=== PATIENT | male | born 1955 | race Caucasian/White ===

== ENCOUNTER 2018-07-23 12:11 | Outpatient (CLI) | payer MEDICAID, SELFPAY ==
[2018-07-23 14:01] LABS: ALT 102 U/L (12-78); AST 49 U/L (15-37); Albumin 3.2 g/dL (3.4-5.0); Alkaline Phosphatase 64 U/L (46-116); Anion Gap 11.3 mmol/L (3-11); BUN 11 mg/dL (7-18); Bilirubin, Total 0.7 mg/dL (0.2-1.0); CO2 26.7 mmol/L (21.0-32.0); Chloride 99 mmol/L (98-107); Glucose 135 mg/dL (70-100); Potassium 3.1 mmol/L (3.5-5.1); Sodium 137 mmol/L (136-145); Total Protein 7.3 g/dL (6.4-8.2)
== END 2018-07-23 12:31 ==
PROVIDERS: PCP Family Medicine; Visit Provider Family Medicine
DX: I10 Essential (primary) hypertension (principal); B19.20 Unspecified viral hepatitis C without hepatic coma; H53.8 Other visual disturbances
CPT/HCPCS: 36415; 80053

== ENCOUNTER 2019-03-27 19:42 | Outpatient (REF) | payer MEDICAID, SELFPAY ==
[2019-04-02 12:14] LABS: Codeine Negative ng/mL (Cutoff: 25); Dihydrocodeine 637 ng/mL (Cutoff: 25); Hydrocodone 2432 ng/mL (Cutoff: 25); Hydromorphone 61 ng/mL (Cutoff: 25); Morphine Negative ng/mL (Cutoff: 25); Naloxone Negative ng/mL (Cutoff: 25); Norhydrocodone 782 ng/mL (Cutoff: 25); Noroxycodone Negative ng/mL (Cutoff: 25); Noroxymorphone Negative ng/mL (Cutoff: 25); Opiates Interpretation Positive.
== END 2019-03-27 20:02 ==
LOC: NCHCN 19:42
PROVIDERS: PCP Family Medicine; Visit Provider Family Medicine
DX: G89.29 Other chronic pain (principal); F11.20 Opioid dependence, uncomplicated; Z51.81 Encounter for therapeutic drug level monitoring
CPT/HCPCS: 80361

== ENCOUNTER 2019-07-04 13:41 | Emergency (ER) | payer MEDICAID, SELFPAY ==
[2019-07-04] VITALS (24 sets, daily range): BP systolic 95–120; BP diastolic 64–80; PULSE 63–109; RESP 18; TEMP 36.1; O2SAT 92–98
--- NOTE | 2019-07-04 14:00 | DI.CT_ITS ---
EXAM: CT ABDOMEN AND PELVIS W CLINICAL HISTORY: RLQ PAIN TECHNIQUE: Imaging Protocol: Axial computed tomography images with coronal and sagittal reformatted images were created and reviewed CONTRAST MATERIAL: Intravenous: Omnipaque 350 Contrast volume:100 mL Oral: No COMPARISON: No exams were available for comparison FINDINGS: ABDOMEN: Lung Bases: Minimal dependent atelectatic changes. Liver: Normal density. No measurable mass. Portal, Superior Mesenteric, and Splenic Veins: Unremarkable. Gallbladder and Biliary Tract: Cholelithiasis. No biliary ductal dilatation. Pancreas: Normal density, no abnormal calcifications or inflammatory process. Spleen: Normal. Adrenals: No masses seen. Kidneys: Normal size, contour and axis. No radiodense stones or obstructive uropathy. No masses seen. Abdominal Aorta: There is ectasia of the infrarenal abdominal aorta up to 2.8 cm. Atherosclerosis is present. Bowel: In the proximal to mid sigmoid colon, there is a loop of bowel which shows wall thickening. T here is increased attenuation in the surrounding fat. There are diverticula present within the sigmo id colon. The findings may represent acute diverticulitis or other inflammatory/infectious colitis. Appendix is unremarkable. Peritoneal Cavity: No ascites, collection or mesenteric inflammatory response. Lymph Nodes: Within normal limits. Bones: Degenerative changes are present. Soft Tissues: Unremarkable. PELVIS: Bladder: There is apparent bladder wall thickening. The bladder is incompletely distended. Reproductive Organs: Unremarkable as visualized. Lymph Nodes: Within normal limits. Bones: Degenerative changes are present. IMPRESSION: 1. Wall thickening in the proximal to mid sigmoid colon. This may represent acute diverticulitis alem sheldon inflammatory/infectious colitis. No abscess or free air. 2. Apparent urinary bladder wall thickening. This may be due to incomplete distention versus cystiti s. Please correlate clinically. RADIATION DOSE DELIVERED: Total DLP DATA REPOSITORY: All CT scans at this facility are submitted to the National Radiology Data Registry (NRDR) Dose Index Registry (DIR) with the [employer] ([employer]). RADIATION OPTIMIZATION: All CT scans at this facility use at least one of these dose optimization te chniques: automated exposure control; mA and/or kV adjustment per patient size (includes targeted exa ms where dose is matched to clinical indication); or iterative reconstruction.
--- NOTE | 2019-07-04 14:04 | ED.GENADUL_ITS ---
Discharge Plan Disposition Patient Disposition: HOME Condition: Stable Discharge Details Chief Complaint: Abd Prob Clinical Impression: Acute UTI, Diverticulitis Primary Care Provider: Sherri Guzman V ED Provider: Domenic Mishra Home Meds and New Rx's Prescriptions: New ciprofloxacin HCl [Cipro] 500 mg tablet 500 mg PO BID 14 Days Qty: 28 RF: 0 metronidazole [Flagyl] 500 mg tablet 500 mg PO TID 14 Days Qty: 42 RF: 0 No Action nadolol [Corgard] 40 MG tablet 120 mg PO DAILY Qty: 30 RF: 0 topiramate [Topamax] 25 MG capsule, sprinkle 25 mg PO BID RF: 0 beclomethasone dipropionate [Qvar] 8.7 GM aerosol 8.7 gm Inhalation BID RF: 0 ipratropium-albuterol [Combivent] 1 PUFF aerosol 2 puff Inhalation PRN PRNRF: 0 trazodone 100 MG tablet 150 mg PO HS Qty: 30 RF: 0 nicotine 21 MG/24 HR patch 24 hour 21 mg Transdermal DAILY Qty: 30 RF: 0 bupropion HCl [Wellbutrin SR] 150 MG tablet extended release 12 hr 150 mg PO BID Qty: 30 RF: 0 hydrocodone-acetaminophen 1 EACH tablet 1 tab-cap PO TID PRN PRNQty: 30 RF: 0 citalopram 20 MG tablet 20 mg PO QAM Qty: 30 RF: 0 gabapentin [Neurontin] 300 MG capsule 900 mg PO TID Qty: 90 RF: 0 tramadol 100 MG tablet extended release 24 hr 100 mg PO BID PRN PRNQty: 30 RF: 0 zolpidem [Ambien] 10 MG tablet 10 mg PO HS PRN PRNRF: 0 cyclobenzaprine 10 MG tablet 20 mg PO TID PRNRF: 0 sucralfate 1 GM tablet 1 gm PO AC & HS Qty: 120 RF: 0 thiamine mononitrate (vit B1) [Vitamin B-1 (mononitrate)] 100 MG tablet 100 mg PO DAILY Qty: 100 RF: 0 Discharge Instructions Instructions: Diverticulitis (ED), Urinary Tract Infection in Men (ED) Additional Instructions: Cipro and Flagyl as directed. Clear liquid diet, advance as tolerated. Please watch for new or worsening symptoms and return to the ER for any concerns. I strongly recommend reaching out your primary care provider on Sunday for prompt outpatient reevaluation. Discharge Data Discharge Date/Time-TO BE ENTERED AT DEPARTURE: 07/04/19 18:13 Medical Decision Making <EDMAR Davis - Last Filed: 07/05/19 11:26> Patient is a 64-year-old gentleman presenting today with chief complaint of right lower quadrant pain. He reports the pain began insidiously 2 days ago and has progressively been increasing. States that today he has been having difficulty with appetite has not had any p.o. intake since last night. He denies any fevers or chills. Denies any nausea vomiting. No change in bowel habits. No previous abdominal surgeries. Has not had pain like this historically. Denies any dysuria, increased frequency urgency. Denies any hematuria. No melena or hematochezia. Past medical history significant for alcohol withdrawal, esophageal varices, gastritis, hepatitis C, asthma, hypothyroidism, migraines, chronic pain for which he is on chronic opiates. On exam, patient is resting comfortably. Normal pulmonary and cardiac exam. Abdomen is quite tender in the right lower quadrant, maximal over McBurney's point with guarding of this area. He does have rebound tenderness. Negative psoas sign but he does have pain elicited with heel strike. Patient is afebrile and nontoxic-appearing. He does appear slightly dry, we will hydrate the patient obtain CT of his abdomen as well as baseline labs. I am primarily concerned for appendicitis. Labs reviewed, patient has a mildly elevated white blood cell count of 11.26. BUN is elevated at 20, creatinine is 1.5. This is unusual for the patient quite elevated from his baseline. We will hydrate the patient. AST is elevated at 55 which is baseline for the patient. No other acute abnormalities on labs. CT pending. At the end of my shift, CT is pending. Care transition to Lowell Mishra PA-C with CT pending. <EDMAR Bobo - Last Filed: 07/04/19 18:49> I assumed care at this 64-year-old gentleman at shift change from EDMAR Ventura. Patient with right lower quadrant pain for several days, denies fever, nausea, vomiting, back pain, dysuria, hematuria, diarrhea or constipation. Some laboratory values and CT pending. Patient appears well, nontoxic. Moist mucous membranes, lungs clear to auscultation, heart regular rate and rhythm. Abdomen does reveal discomfort in the right lower quadrant with minimal guarding but no rebound or rigidity. Bowel sounds are equal throughout. Back unremarkable. White count of 11.26. Urinalysis consistent with UTI. CT imaging of the abdomen and pelvis with contrast read by radiology as a localized wall thickening approximately 7-10 cm in length in the proximal sigmoid colon may represent acute diverticulitis or colitis. No perforation or abscess. Normal appendix. Apparent bladder wall thickening may be secondary to incomplete filling versus cystitis. Discussed laboratory values and imaging with patient. We discussed options. He would prefer to be discharged home. Will treat with Cipro and Flagyl which would cover both diverticulitis-colitis and a urinary tract infection. Culture of the urine is pending. Patient was encouraged to return to the ER for new or worsening symptoms. Otherwise follow-up with his primary care provider on Sunday. Medical Records Medical records reviewed: Yes I reviewed the patient's medical records. Lab Data Lab results reviewed: Yes I reviewed the patient's lab results. Lab results narrative: 07/04/19 17:15 Urine - Reflex from Ua Urine Culture - Pending Laboratory Tests Range/Units 07/04/19 07/04/19 07/04/19 14:20 14:50 17:15 WBC (4.4-10.8) k/cumm 11.26 H RBC (4.50-6.00) m/cumm 5.34 Hgb (13.5-17.5) g/dL 17.3 Hct (40.0-50.0) % 51.4 H MCV (80-95) fL 96.3 H MCH (27.0-33.0) pg 32.4 MCHC (32.0-36.0) g/dL 33.7 RDW (11.8-14.1) % 12.5 Plt Count (130-400) x1000/uL 240 MPV (8.0-11.0) fL 10.3 Immature Gran % % 0.6 Neutrophils % 67.7 Lymphocytes % 19.9 Monocytes % 7.8 Eosinophils % 3.6 Basophils % 0.4 Absolute Neutrophils (1.2-6.7) k/cumm 7.62 H Absolute Lymphocytes (1.2-3.4) k/cumm 2.24 Absolute Monocytes (0.11-0.7) k/cumm 0.88 H Absolute Eosinophils (0.0-0.7) k/cumm 0.41 Absolute Basophils (0.0-0.2) k/cumm 0.05 Sodium (136-145) mmol/L 137 Potassium (3.5-5.1) mmol/L 3.8 Chloride (98-107) mmol/L 102 Carbon Dioxide (21.0-32.0) mmol/L 25.7 Anion Gap (3-11) mmol/L 9.3 BUN (7-18) mg/dL 20 H Creatinine (0.70-1.30) mg/dL 1.51 H Estimated GFR/1.73 m2 (mL/min/1.73m2) 46.76 Glucose (74-106) mg/dL 97 Calcium (8.5-10.1) mg/dL 9.3 Magnesium (1.8-2.4) mg/dL 1.9 Total Bilirubin (0.2-1.0) mg/dL 0.8 AST (15-37) U/L 55 H ALT (16-63) U/L 58 Alkaline Phosphatase (46-116) U/L 65 Total Protein (6.4-8.2) g/dL 8.0 Albumin (3.4-5.0) g/dL 3.4 Urine Color (Yellow) Yellow Urine Clarity (Clear) Clear Urine pH (5-8) 6.0 Ur Specific [place] (1.005-1.025) 1.020 Urine Protein (Negative) mg/dL Negative Urine Ketones (Negative) mg/dL Negative Urine Blood (Negative) Negative Urine Nitrite (Negative) Negative Urine Bilirubin (Negative) Negative Urine Urobilinogen (Up TO 0.2) EU/dL 1.0 H Ur Leukocyte Esterase (Negative) Trace H Urine RBC (0-2) HPF 5-10 H Urine WBC (0-5) HPF >50 H Ur Epithelial Cells (Negative) HPF Negative Urine Crystals (Negative) HPF Few amorphous Urine Bacteria (Negative) HPF Few Urine Casts (Negative) LPF 10-20 hyaline Urine Mucus (Negative) Negative Ur Culture Indicated? Yes Urine Glucose (Negative) mg/dL Negative HPI <EDMAR Davis - Last Filed: 07/05/19 11:26> General Mode of arrival: ambulatory . Date/Time Provider Initiated Documentation: 07/04/19 13:46 . Limitations to Documentation: no limitations . Information obtained by: patient and RN notes reviewed . History of Present Illness 64 year old M presents to the emergency department with the chief complaint of RLQ pain, described as moderate, with intensity rated at 5. Quality is described as aching, and is localized to the abdomen. Patient reports no radiation. Patient started experiencing this day(s) (2) and it has been constant. No relieving factors improve symptom(s), Movement worsens symptoms . Patient notes loss of appetite; denies chest pain, cough, fever/chills, nausea/vomiting, rash, shortness of breath and weakness. Patient did receive the following treatments prior to arrival, none Related Data Home Medications Medication Instructions Recorded Confirmed beclomethasone dipropionate [Qvar] 8.7 gm INHALATION BID 11/10/12 08/11/16 ipratropium-albuterol [Combivent] 2 puff INHALATION PRN PRN 11/10/12 08/11/16 bupropion HCl [Wellbutrin SR] 150 mg PO BID #30 tablet.er 11/23/14 08/11/16 citalopram 20 mg PO QAM #30 tab 11/23/14 08/11/16 gabapentin [Neurontin] 900 mg PO TID #90 capsule 11/23/14 08/11/16 hydrocodone-acetaminophen 1 tab-cap PO TID PRN PRN #30 11/23/14 08/11/16 tab-cap nicotine 21 mg TRANSDERMAL DAILY #30 patch 11/23/14 08/11/16 tramadol 100 mg PO BID PRN PRN #30 tabcr 11/23/14 08/11/16 trazodone 150 mg PO HS #30 tab 11/23/14 08/11/16 zolpidem [Ambien] 10 mg PO HS PRN PRN 06/24/15 08/11/16 cyclobenzaprine 20 mg PO TID PRN 11/06/15 08/11/16 sucralfate 1 gm PO AC & HS #120 tab 11/10/15 08/11/16 thiamine mononitrate (vit B1) 100 mg PO DAILY #100 tab 11/10/15 08/11/16 [Vitamin B-1 (mononitrate)] nadolol [Corgard] 120 mg PO DAILY #30 tab 11/25/15 topiramate [Topamax] 25 mg PO BID cap.[email or web address] 02/21/16 08/11/16 ciprofloxacin HCl [Cipro] 500 mg PO BID 14 Days #28 tab 07/04/19 metronidazole [Flagyl] 500 mg PO TID 14 Days #42 tab 07/04/19 Previous Rx's Medication Instructions Recorded bupropion HCl [Wellbutrin SR] 150 mg PO BID #30 tablet.er 11/23/14 citalopram 20 mg PO QAM #30 tab 11/23/14 gabapentin [Neurontin] 900 mg PO TID #90 capsule 11/23/14 hydrocodone-acetaminophen 1 tab-cap PO TID PRN PRN #30 11/23/14 tab-cap nicotine 21 mg TRANSDERMAL DAILY #30 patch 11/23/14 tramadol 100 mg PO BID PRN PRN #30 tabcr 11/23/14 trazodone 150 mg PO HS #30 tab 11/23/14 sucralfate 1 gm PO AC & HS #120 tab 11/10/15 thiamine mononitrate (vit B1) 100 mg PO DAILY #100 tab 11/10/15 [Vitamin B-1 (mononitrate)] ciprofloxacin HCl [Cipro] 500 mg PO BID 14 Days #28 tab 07/04/19 metronidazole [Flagyl] 500 mg PO TID 14 Days #42 tab 07/04/19 Allergies Allergy/AdvReac Type Severity Reaction Status Date / Time clonidine AdvReac Mild Unverified 07/04/19 13:56 lisinopril AdvReac Mild Unverified 07/04/19 13:56 losartan AdvReac Mild Unverified 07/04/19 13:56 General Stated Complaint: Abd Prob DAYSI: 3 Review of Systems <EDMAR Davis - Last Filed: 07/05/19 11:26> Constitutional Constitutional: Reports as per HPI, Denies chills, Denies fatigue, Denies fever(s) and Denies headache(s) ENT Ears, Nose, Mouth, and Throat: Denies headache(s) Cardiovascular Cardiovascular: Reports as per HPI, Denies chest pain and Denies dyspnea Respiratory Respiratory: Reports as per HPI, Denies cough and Denies dyspnea Gastrointestinal Gastrointestinal: Reports as per HPI, Reports abdominal pain, Denies change in bowel habits, Denies constipation, Denies nausea and Denies vomiting Genitourinary Genitourinary: Denies system reviewed and no additional complaints, except as documented (patient denies any change in urinary habits) Musculoskeletal Musculoskeletal: Reports as per HPI and Denies back pain Integumentary/Breasts Skin/Breast: Reports as per HPI and Denies rash Neurologic Neurologic: Reports as per HPI and Denies headache(s) Endocrine Endocrine: Denies fatigue PFSH <EDMAR Davis - Last Filed: 07/05/19 11:26> Social History Smoking/Tobacco Use Status: Current every day Drug use: Never Do you feel safe at home: Yes Do you feel safe in your relationship?: Yes Exam <EDMAR Davis Last Filed: 07/05/19 11:26> Const General: cooperative, healthy appearing, comfortable, no acute distress and well developed Nutritional Appearance: average body habitus and well nourished Orientation: alert and awake HENMT Head: normal to inspection Mouth: moist mucous membranes Resp Effort & Inspection: normal respiratory effort, able to speak in complete sentences and no respiratory distress Auscultation: clear to auscultation bilaterally, no rales, no rhonchi and no wheezes Cardio Rate: regular rate Rhythm: regular rhythm Heart Sounds: S1 normal and S2 normal GI Inspection: normal to inspection Palpation: soft, no hepatosplenomegaly, not firm, guarding in the RLQ, no hepatosplenomegaly, no hernias, no masses, not rigid and tender in the RLQ, at McBurney's point and with rebound tenderness; Sahu's sign negative, obturator sign negative and psoas sign negative Percussion: normal to percussion Auscultation: hypoactive bowel sounds Back/Spine/Pelvis Back: no CVA tenderness Skin General skin exam: no rashes or lesions noted Trauma: no lacerations or abrasions Neuro General: patient alert and patient awake Cognition: normal cognition Speech: speech normal Gait: normal gait Extrem General: normal to inspection Psych Appearance: grossly normal and well kempt Mental Status: mental status grossly normal Speech and Movement: speech and movement normal Course <EDMAR Davis Last Filed: 07/05/19 11:26> Vital Signs Vital signs: Vital Signs Temperature 36.1 C L 07/04/19 13:45 Pulse 66 07/04/19 13:45 Respiratory Rate 18 07/04/19 13:45 Blood Pressure 98/73 L 07/04/19 13:45 Pulse Oximetry 98 07/04/19 13:45 Temperature 36.1 C L 07/04/19 13:45 Temperature Source Skin 07/04/19 13:45 Pulse 66 07/04/19 13:45 Respiratory Rate 18 07/04/19 13:45 Respiratory Effort 07/04/19 13:54 Blood Pressure 98/73 L 07/04/19 13:45 Blood Pressure Position Sitting 07/04/19 13:45 Pulse Oximetry 98 07/04/19 13:45 Oxygen Delivery Method Room Air 07/04/19 13:45 Oxygen Flow Rate 0 07/04/19 13:45 Pain Level 5 07/04/19 13:45 Sign Out <EDMAR Davis - Last Filed: 07/05/19 11:26> Sign Out Data: Sign Out Comment: Care transition to Domenic Mishra PA-C with CT imaging pending. Patient presenting with right lower quadrant pain. Has received 1 L of fluids. Last updated by Charla Ventura PA at 07/04/19 16:04
[2019-07-04] MEDS: Normal Saline 1,000 ML 1000 ML IV (14:23)
[2019-07-04 14:37] LABS: Abs Immature Grans 0.07 k/cumm (0.0-0.09); Absolute Lymphocyte Count 2.24 k/cumm (1.2-3.4); Absolute Monocyte Count 0.88 k/cumm (0.11-0.7); Basophils % 0.4; Eosinophils % 3.6; HCT 51.4 % (40.0-50.0); HGB 17.3 g/dL (13.5-17.5); Immature Grans % 0.6 %; Lymphocytes % 19.9; Mean Corp. HGB Concentration 33.7 g/dL (32.0-36.0); Mean Corpuscular Hemoglobin 32.4 pg (27.0-33.0); Mean Corpuscular Volume 96.3 fL (80-95); Mean Platelet Volume 10.3 fL (8.0-11.0); Monocytes % 7.8; Neutrophils % 67.7; Platelet Count 240 x1000/uL (130-400); RBC 5.34 m/cumm (4.50-6.00); RBC Distribution Width 12.5 % (11.8-14.1); White Blood Cell Count 11.26 k/cumm (4.4-10.8)
[2019-07-04 14:40] LABS: Absolute Basophil Count 0.05 k/cumm (0.0-0.2); Absolute Eosinophil Count 0.41 k/cumm (0.0-0.7); Absolute Neutrophil Count 7.62 k/cumm (1.2-6.7)
[2019-07-04 15:13] LABS: ALT 58 U/L (16-63); AST 55 U/L (15-37); Albumin 3.4 g/dL (3.4-5.0); Alkaline Phosphatase 65 U/L (46-116); Anion Gap 9.3 mmol/L (3-11); BUN 20 mg/dL (7-18); Bilirubin, Total 0.8 mg/dL (0.2-1.0); CO2 25.7 mmol/L (21.0-32.0); CREATININE 1.51 mg/dL (0.70-1.30); Calcium 9.3 mg/dL (8.5-10.1); Chloride 102 mmol/L (98-107); Estimated GFR 46.76 (mL/min/1.73m2); Glucose 97 mg/dL (74-106); Magnesium 1.9 mg/dL (1.8-2.4); Potassium 3.8 mmol/L (3.5-5.1); Sodium 137 mmol/L (136-145)
[2019-07-04] MEDS: Omnipaque 350 MG/ML 100 ML BTL IJ (15:43)
[2019-07-04 17:20] LABS: Bilirubin Negative (Negative); Blood Negative (Negative); Clarity Clear (Clear); Glucose Negative (Negative); Ketones Negative (Negative); Leukocyte Esterase Trace (Negative); Nitrite Negative (Negative)
--- NOTE | 2019-07-04 17:34 | DI.VRAD_ITS ---
Addendum created by Emilee Briones MD on 07/04/2019 5:49:42 PM EDT IMPRESSION: 1. Localized wall thickening approximately 7-10 cm in length in the proximal sigmoid colon may REPRESENT acute diverticulitis or colitis. No perforation or abscess. Normal appendix. 2. Apparent bladder wall thickening may be secondary to incomplete filling versus cystitis. Clinical and laboratory correlation recommended. Initial report created on 07/04/2019 5:33:49 PM EDT PROCEDURE INFORMATION: Exam: CT Abdomen And Pelvis With Contrast Exam date and time: 07/04/2019 3:47 PM Age: 64 years old Clinical indication: Pain; Other: Rlq TECHNIQUE: Imaging protocol: Computed tomography of the abdomen and pelvis with intravenous contrast. Radiation optimization: All CT scans at this facility use at least one of these dose optimization techniques: automated exposure control; mA and/or kV adjustment per patient size (includes targeted exams where dose is matched to clinical indication); or iterative reconstruction. Contrast material: OMNIPAQUE 350; Contrast volume: 100 ml; Contrast route: IV; COMPARISON: No relevant prior studies available. FINDINGS: Lungs: There is minimal bibasilar atelectasis. Liver: Normal. No mass. Gallbladder and bile ducts: Multiple calcified gallstones are present. Pancreas: Normal. No ductal dilation. Spleen: Normal. No splenomegaly. Adrenals: Normal. No mass. Kidneys and ureters: Normal. No hydronephrosis. Stomach and bowel: The stomach and small bowel are normal.Localized wall thickening approximately 7-10 cm in length in the proximal sigmoid colon may rep lacked acute diverticulitis or colitis. No perforation or abscess. Appendix: A normal appendix is identified. Intraperitoneal space: Unremarkable. No free air. No significant fluid collection. Vasculature: Aneurysmal dilation of the infrarenal abdominal aorta measuring up to 28 mm. The iliacs and distal aorta are heavily calcified with plaque. There is coronary artery calcification. Lymph nodes: Unremarkable. No enlarged lymph nodes. Bladder: Apparent bladder wall thickening may be secondary to incomplete filling versus cystitis. Reproductive: Unremarkable as visualized. Bones/joints: Unremarkable. No acute fracture. Soft tissues: Unremarkable. IMPRESSION: 1. Localized wall thickening approximately 7-10 cm in length in the proximal sigmoid colon may rep lacked acute diverticulitis or colitis. No perforation or abscess. Normal appendix. 2. Apparent bladder wall thickening may be secondary to incomplete filling versus cystitis. Clinical and laboratory correlation recommended. Dictated and Authenticated by: Emilee Briones MD. Ordering:ABISAI Dunham MD
[2019-07-04 17:56] LABS: Bacteria Few HPF (Negative); C & S Indicated? Yes; Casts 10-20 Hyaline LPF (Negative); Crystals Few Amorphous HPF (Negative); Epithelial Cells Negative HPF (Negative); Mucus Negative (Negative); WBC >50 HPF (0-5)
== END 2019-07-04 18:13 | disposition home or self-care (01) ==
LOC: ER 18:17
PROVIDERS: Physician Assistant; Emergency Provider Physician Assistant; PCP Family Medicine
DX: N39.0 Urinary tract infection, site not specified (principal); K57.32 Diverticulitis of large intestine without perforation or abscess without bleeding
CPT/HCPCS: 36415; 80053; 96360; 99285; 74177; 81003; 81015; 83735; 85025; 87086; 99284; J3490

== ENCOUNTER 2019-09-08 00:54 | Emergency (ER) | payer MEDICAID, SELFPAY ==
[2019-09-08 00:56] VITALS: BP 116/80; PULSE 70; RESP 16; TEMP 36.5; O2SAT 96
--- NOTE | 2019-09-08 01:26 | ED.GENADUL_ITS ---
Discharge Plan Disposition Patient Disposition: HOME Condition: Stable Discharge Details Chief Complaint: Laceration Clinical Impression: Laceration of left thumb Primary Care Provider: Sherri Guzman V ED Provider: Edwardo Molina Home Meds and New Rx's Prescriptions: Continued nadolol [Corgard] 40 MG tablet 120 mg PO DAILY Qty: 30 RF: 0 topiramate [Topamax] 25 MG capsule, sprinkle 25 mg PO BID RF: 0 Qvar 8.7 GM aerosol 8.7 gm Inhalation BID RF: 0 Combivent 1 PUFF aerosol 2 puff Inhalation PRN PRNRF: 0 trazodone 100 MG tablet 150 mg PO HS Qty: 30 RF: 0 nicotine 21 MG/24 HR patch 24 hour 21 mg Transdermal DAILY Qty: 30 RF: 0 bupropion HCl [Wellbutrin SR] 150 MG tablet extended release 12 hr 150 mg PO BID Qty: 30 RF: 0 hydrocodone-acetaminophen 1 EACH tablet 1 tab-cap PO TID PRN PRNQty: 30 RF: 0 citalopram 20 MG tablet 20 mg PO QAM Qty: 30 RF: 0 gabapentin [Neurontin] 300 MG capsule 900 mg PO TID Qty: 90 RF: 0 tramadol 100 MG tablet extended release 24 hr 100 mg PO BID PRN PRNQty: 30 RF: 0 zolpidem [Ambien] 10 MG tablet 10 mg PO HS PRN PRNRF: 0 cyclobenzaprine 10 MG tablet 20 mg PO TID PRNRF: 0 sucralfate 1 GM tablet 1 gm PO AC & HS Qty: 120 RF: 0 thiamine mononitrate (vit B1) [Vitamin B-1 (mononitrate)] 100 MG tablet 100 mg PO DAILY Qty: 100 RF: 0 Discharge Instructions Instructions: Laceration (ED) Additional Instructions: return in 7-10 days for evaluation for suture removal return to the emergency department for spreading redness or yellow/white discharge Medical Decision Making 64 yo male was cutting watermelon when the knife slipped causing a laceration to the left palmar surface of proximal thumb about 2.5cm in length. Has full rom of the thumb and intact sensation bleeding controlled with pressure, will need ortiz tures, states last tetanus vaccine a year ago placed 7 sutures without complications and he tolerated well, will d/c home and have him return for suture removal and return precautions given Differential Diagnosis Differential Diagnosis: laceration, abrasion HPI General Mode of arrival: ambulatory . Date/Time Provider Initiated Documentation: 09/08/19 01:26 . Limitations to Documentation: no limitations . Information obtained by: patient . History of Present Illness 64 year old M presents to the emergency department with the chief complaint of left thumb injury, described as moderate, Patient started experiencing this hour(s) (2) and it has been constant. No relieving factors improve symptom(s), No exacerbating factors reported . Patient did receive the following treatments prior to arrival, none Related Data Home Medications Medication Instructions Recorded Confirmed Combivent 2 puff INHALATION PRN PRN 11/10/12 09/08/19 Qvar 8.7 gm INHALATION BID 11/10/12 09/08/19 bupropion HCl [Wellbutrin SR] 150 mg PO BID #30 tablet.er 11/23/14 09/08/19 citalopram 20 mg PO QAM #30 tab 11/23/14 09/08/19 gabapentin [Neurontin] 900 mg PO TID #90 capsule 11/23/14 09/08/19 hydrocodone-acetaminophen 1 tab-cap PO TID PRN PRN #30 11/23/14 09/08/19 tab-cap nicotine 21 mg TRANSDERMAL DAILY #30 patch 11/23/14 09/08/19 tramadol 100 mg PO BID PRN PRN #30 tabcr 11/23/14 09/08/19 trazodone 150 mg PO HS #30 tab 11/23/14 09/08/19 zolpidem [Ambien] 10 mg PO HS PRN PRN 06/24/15 09/08/19 cyclobenzaprine 20 mg PO TID PRN 11/06/15 09/08/19 sucralfate 1 gm PO AC & HS #120 tab 11/10/15 09/08/19 thiamine mononitrate (vit B1) 100 mg PO DAILY #100 tab 11/10/15 09/08/19 [Vitamin B-1 (mononitrate)] nadolol [Corgard] 120 mg PO DAILY #30 tab 11/25/15 09/08/19 topiramate [Topamax] 25 mg PO BID cap.sprink 02/21/16 09/08/19 Previous Rx's Medication Instructions Recorded bupropion HCl [Wellbutrin SR] 150 mg PO BID #30 tablet.er 11/23/14 citalopram 20 mg PO QAM #30 tab 11/23/14 gabapentin [Neurontin] 900 mg PO TID #90 capsule 11/23/14 hydrocodone-acetaminophen 1 tab-cap PO TID PRN PRN #30 11/23/14 tab-cap nicotine 21 mg TRANSDERMAL DAILY #30 patch 11/23/14 tramadol 100 mg PO BID PRN PRN #30 tabcr 11/23/14 trazodone 150 mg PO HS #30 tab 11/23/14 sucralfate 1 gm PO AC & HS #120 tab 11/10/15 thiamine mononitrate (vit B1) 100 mg PO DAILY #100 tab 11/10/15 [Vitamin B-1 (mononitrate)] Allergies Allergy/AdvReac Type Severity Reaction Status Date / Time clonidine AdvReac Mild Unverified 09/08/19 01:08 lisinopril AdvReac Mild Unverified 09/08/19 01:08 losartan AdvReac Mild Unverified 09/08/19 01:08 General Stated Complaint: Laceration DAYSI: 4 Review of Systems All systems reviewed & are unremarkable except as noted in HPI and below Constitutional Constitutional: Denies chills, Denies fever(s) and Denies weakness Cardiovascular Cardiovascular: Denies chest pain and Denies dyspnea Respiratory Respiratory: Denies cough and Denies dyspnea Gastrointestinal Gastrointestinal: Denies abdominal pain, Denies nausea and Denies vomiting Musculoskeletal Musculoskeletal: Denies joint swelling Neurologic Neurologic: Denies weakness Psychiatric Psychiatric: Denies depression [facility] Social History Smoking/Tobacco Use Status: Current every day Alcohol Intake: current Alcohol Intake frequency: a few times a week Drug use: Never Substance use type: does not use Do you feel safe at home: Yes Do you feel safe in your relationship?: Yes Exam Const General: no acute distress Orientation: alert HENMT Head: normal to inspection Ears: external ears normal General nose exam: external nose normal Mouth: moist mucous membranes Eyes General: appearance normal, both eyes and all related structures Neck Neck: normal visual inspection Resp Effort & Inspection: normal respiratory effort and able to speak in complete sentences Cardio Rate: regular rate Skin General skin exam: no rashes or lesions noted Neuro General: patient alert and patient oriented x3 Extrem General: full ROM and capillary refill normal Psych Mental Status: mental status grossly normal Course Vital Signs Vital signs: Vital Signs Temperature 36.5 C 09/08/19 00:56 Pulse 70 09/08/19 00:56 Respiratory Rate 16 09/08/19 00:56 Blood Pressure 116/80 09/08/19 00:56 Pulse Oximetry 96 09/08/19 00:56 Temperature 36.5 C 09/08/19 00:56 Temperature Source Skin 09/08/19 00:56 Pulse 70 09/08/19 00:56 Respiratory Rate 16 09/08/19 00:56 Respiratory Effort Non-Labored 09/08/19 01:07 Blood Pressure 116/80 09/08/19 00:56 Blood Pressure Position Sitting 09/08/19 00:56 Pulse Oximetry 96 09/08/19 00:56 Oxygen Delivery Method Room Air 09/08/19 00:56 Oxygen Flow Rate 0 09/08/19 00:56 Pain Level 6 09/08/19 01:07 Procedures Laceration Laceration 1: Site: hand Side (If applicable): left Size (cm): 2.5 Description: linear Depth: simple, single layer Local Anesthetic: Lidocaine 1% Amount of anesthesia used (mL): 5 Pre-repair: wound explored and irrigated extensively Skin layer closed with: vicryl Size (cm): 5-0 Number of sutures: 7 Technique: simple, interrupted
--- NOTE | 2019-09-08 01:35 | NUR.NOTE ---
Nursing Note:applied pressure dressing per MD instructions. Non stick covering laceration repair.
--- NOTE | 2019-09-08 01:40 | NUR.NOTE ---
Nursing Note: pt states does not have a ride home- attempting to call [facility] for a ride. Pt states he is preauthorized for [facility].
[2019-09-08 02:03] VITALS: BP 116/80; PULSE 70; RESP 16; TEMP 36.5; O2SAT 96
--- NOTE | 2019-09-08 20:13 | NUR.NOTE ---
Nursing Note: Patient called that tip of thumb is still numb. Discussed with Dr Molina, advised patient that this is normal. Continue recommended followup with washing, change dressing as advised.
--- NOTE | 2019-09-17 16:40 | NUR.NOTE ---
Nursing Note: Patient called asking about when he should return to have the stitchers taken out. D/C states 7-10 days. Patient stated he was concerned that they might not be ready, they were not loose. I told him he could return to the ED anytime for recheck with his concerns. He stated he would come up this Sunday, when he could get a ride. Lori Chow.
== END 2019-09-08 01:55 | disposition home or self-care (01) ==
PROVIDERS: Emergency Provider Emergency Medicine; PCP Family Medicine
DX: S61.012A Laceration without foreign body of left thumb without damage to nail, initial encounter (principal); W26.0XXA Contact with knife, initial encounter
CPT/HCPCS: 12001

== ENCOUNTER 2019-09-19 09:58 | Emergency (ER) | payer MEDICAID, SELFPAY ==
[2019-09-19 10:05] VITALS: BP 148/109; PULSE 102; RESP 16; TEMP 36.3; O2SAT 98
--- NOTE | 2019-09-19 11:10 | W.ED.GENAD ---
Discharge Plan Disposition Patient Disposition: HOME Discharge Details Chief Complaint: SutureRem Clinical Impression: Laceration of flexor tendon of left hand, Encounter for removal of sutures Primary Care Provider: Sherri Guzman V ED Provider: Domenic Mishra Home Meds and New Rx's Prescriptions: Continued nadolol [Corgard] 40 MG tablet 120 mg PO DAILY Qty: 30 RF: 0 topiramate [Topamax] 25 MG capsule, sprinkle 25 mg PO BID RF: 0 Qvar 8.7 GM aerosol 8.7 gm Inhalation BID RF: 0 Combivent 1 PUFF aerosol 2 puff Inhalation PRN PRNRF: 0 trazodone 100 MG tablet 150 mg PO HS Qty: 30 RF: 0 nicotine 21 MG/24 HR patch 24 hour 21 mg Transdermal DAILY Qty: 30 RF: 0 bupropion HCl [Wellbutrin SR] 150 MG tablet extended release 12 hr 150 mg PO BID Qty: 30 RF: 0 hydrocodone-acetaminophen 1 EACH tablet 1 tab-cap PO TID PRN PRNQty: 30 RF: 0 citalopram 20 MG tablet 20 mg PO QAM Qty: 30 RF: 0 gabapentin [Neurontin] 300 MG capsule 900 mg PO TID Qty: 90 RF: 0 tramadol 100 MG tablet extended release 24 hr 100 mg PO BID PRN PRNQty: 30 RF: 0 zolpidem [Ambien] 10 MG tablet 10 mg PO HS PRN PRNRF: 0 cyclobenzaprine 10 MG tablet 20 mg PO TID PRNRF: 0 sucralfate 1 GM tablet 1 gm PO AC & HS Qty: 120 RF: 0 thiamine mononitrate (vit B1) [Vitamin B-1 (mononitrate)] 100 MG tablet 100 mg PO DAILY Qty: 100 RF: 0 Discharge Instructions Instructions: Tendon Laceration (ED) Additional Instructions: Sutures were removed without difficulty. It appears as though you have a flexor tendon laceration. This needs to be surgically repaired and Dr. Preston evaluated you here in the ER. Please follow his instructions regarding the repair. Watch for new or worsening symptoms and return to the ER for any concerns. Referrals: Qamar Preston MD [ [facility] STAFF PHYSICIAN] - Medical Decision Making This 64-year-old male presenting for suture removal. The laceration itself appears well-healed however upon his neuro, vascular, tendon examination I am concerned that he has a flexor tendon laceration as well as likely a nerve injury. I have placed a call out to Dr. Preston to discuss the case. I did review his ER visit on the sixth, per that note he had full range of motion and sensation. Patient denies any obvious injury since leaving the ER that day. Dr. Preston evaluated the patient in the ER himself. Please see his note. Plan from the ER will be to remove the sutures, no splint necessary. He will be in contact with the patient as an outpatient to decide the best course of action whether repairing the tendon laceration here or subsequently setting the patient up at [facility]. Patient is comfortable with this plan and has additional questions or concerns Sutures removed without difficulty. Patient tolerated well. No additional questions or concerns Medical Records Medical records reviewed: Yes I reviewed the patient's medical records. HPI General Mode of arrival: ambulatory. Date/Time Provider Initiated Documentation: 09/19/19 10:14. Limitations to Documentation: no limitations. Information obtained by: patient. HPI Narrative: 64-year-old gentleman with a history of alcohol abuse, gastritis, upper GI bleed, esophageal varices, presents to the ER for left thumb suture removal. He accidentally cut himself with a knife on the sixth of this month, was seen in our ER and 7 sutures placed. He reports that the laceration is healed well, denies pain, fever, redness, discharge. Tetanus status is up-to-date as of last year. He reports that he is unable to feel his thumb distally from the laceration is unable to bend his thumb whatsoever since the laceration Related Data Home Medications Medication Instructions Recorded Confirmed Combivent 2 puff INHALATION PRN PRN 11/10/12 09/08/19 Qvar 8.7 gm INHALATION BID 11/10/12 09/08/19 bupropion HCl [Wellbutrin SR] 150 mg PO BID #30 tablet.er 11/23/14 09/08/19 citalopram 20 mg PO QAM #30 tab 11/23/14 09/08/19 gabapentin [Neurontin] 900 mg PO TID #90 capsule 11/23/14 09/08/19 hydrocodone-acetaminophen 1 tab-cap PO TID PRN PRN #30 11/23/14 09/08/19 tab-cap nicotine 21 mg TRANSDERMAL DAILY #30 patch 11/23/14 09/08/19 tramadol 100 mg PO BID PRN PRN #30 tabcr 11/23/14 09/08/19 trazodone 150 mg PO HS #30 tab 11/23/14 09/08/19 zolpidem [Ambien] 10 mg PO HS PRN PRN 06/24/15 09/08/19 cyclobenzaprine 20 mg PO TID PRN 11/06/15 09/08/19 sucralfate 1 gm PO AC & HS #120 tab 11/10/15 09/08/19 thiamine mononitrate (vit B1) 100 mg PO DAILY #100 tab 11/10/15 09/08/19 [Vitamin B-1 (mononitrate)] nadolol [Corgard] 120 mg PO DAILY #30 tab 11/25/15 09/08/19 topiramate [Topamax] 25 mg PO BID cap.sprink 02/21/16 09/08/19 Previous Rx's Medication Instructions Recorded bupropion HCl [Wellbutrin SR] 150 mg PO BID #30 tablet.er 11/23/14 citalopram 20 mg PO QAM #30 tab 11/23/14 gabapentin [Neurontin] 900 mg PO TID #90 capsule 11/23/14 hydrocodone-acetaminophen 1 tab-cap PO TID PRN PRN #30 11/23/14 tab-cap nicotine 21 mg TRANSDERMAL DAILY #30 patch 11/23/14 tramadol 100 mg PO BID PRN PRN #30 tabcr 11/23/14 trazodone 150 mg PO HS #30 tab 11/23/14 sucralfate 1 gm PO AC & HS #120 tab 11/10/15 thiamine mononitrate (vit B1) 100 mg PO DAILY #100 tab 11/10/15 [Vitamin B-1 (mononitrate)] Allergies Allergy/AdvReac Type Severity Reaction Status Date / Time clonidine AdvReac Mild Unverified 09/19/19 10:12 lisinopril AdvReac Mild Unverified 09/19/19 10:12 losartan AdvReac Mild Unverified 09/19/19 10:12 General Stated Complaint: SutureRem DAYSI: 5 Review of Systems Constitutional Constitutional: Denies fever(s) Musculoskeletal Musculoskeletal: Reports numbness and Denies tingling Integumentary/Breasts Skin/Breast: Denies rash Neurologic Neurologic: Reports numbness and Denies tingling [facility] Social History Smoking/Tobacco Use Status: Current every day Alcohol Intake: current Alcohol Intake frequency: a few times a week Drug use: Never Substance use type: does not use Do you feel safe at home: Yes Do you feel safe in your relationship?: Yes Exam Const General: cooperative, healthy appearing, comfortable and no acute distress Orientation: alert and awake HENMT Head: normal to inspection, normocephalic and atraumatic Mouth: moist mucous membranes Eyes Conjunctivae: conjunctivae normal Neck Neck: normal visual inspection, trachea midline and supple Resp Effort & Inspection: normal respiratory effort and able to speak in complete sentences Cardio Rate: regular rate Rhythm: regular rhythm Skin General skin exam: no rashes or lesions noted Neuro General: patient alert, patient awake, moves all extremities and no focal motor deficits Sensory Exam: no sensory deficits noted Extrem Other: Left thumb flexor aspect between the MCP and IP joint there is a well-healed laceration with 7 intact sutures. There is no erythema, warmth, tenderness or drainage. No signs of infection. Capillary refill is normal. Patient unable to flex the IP joint whatsoever and he has no sensation distal to the laceration. Psych Appearance: grossly normal Mental Status: mental status grossly normal Course Vital Signs Vital signs: Vital Signs Temperature 36.3 C L 09/19/19 10:05 Pulse 102 H 09/19/19 10:05 Respiratory Rate 16 09/19/19 10:05 Blood Pressure 148/109 H 09/19/19 10:05 Pulse Oximetry 98 09/19/19 10:05 Temperature 36.3 C L 09/19/19 10:05 Temperature Source Skin 09/19/19 10:05 Pulse 102 H 09/19/19 10:05 Respiratory Rate 16 09/19/19 10:05 Respiratory Effort 09/19/19 10:12 Blood Pressure 148/109 H 09/19/19 10:05 Blood Pressure Position Sitting 09/19/19 10:05 Pulse Oximetry 98 09/19/19 10:05 Oxygen Delivery Method Room Air 09/19/19 10:05 Oxygen Flow Rate 0 09/19/19 10:05 Pain Level 0 09/19/19 10:05 Comment 09/19/19 10:05
--- NOTE | 2019-09-19 18:48 | W.ORTHOCONSU ---
Date of service: 09/19/19 Time of Service: 10:49 History of Present Illness History of Present Illness Chief Complaint: Left Thumb Laceration Narrative: Geovani is a 64-year-old who presented to the emergency department today for suture removal from a left thumb laceration. The laceration occurred on September 07. He reports slicing blayne with a large sharp knife. He missed a watermelon and sliced down onto his left thumb. He felt that the laceration went down to bone. He was seen in the emergency department and he was noted to have full range of motion and sensation at that time. However, Geovani does not think that he did and he does not know of any other trauma which has occurred since then. He did have some similar trauma to the right thumb and does have some lack of motion of the right thumb. He reports that the palmar aspect left thumb is numb. He is unable to bend the tip of the thumb. He has had no issues with the wound and has had no fevers no chills. He denies cough or shortness of breath. He does report worsening vision and known cataracts, awaiting ophthalmologic consultation this coming week. Consults Consult date: 09/19/19 Requesting physician: Domenic Mishra Consult Reason Left thumb flexor tendon laceration Assessment and Plan Assessment and plan (1) Laceration of left thumb: Status: Acute Assessment and plan: Geovani is a 64-year-old who suffered a laceration of the base of the left thumb while cutting a watermelon. While the initial emergency department note reported full range of motion and sensation, it is unlikely given the position of the laceration and the examination today. By exam, he has a laceration of the flexor tendon to the thumb, FPL tendon, as well as injury to both neurovascular branches palmarly. Unfortunately, the results of repair in a delayed fashion, more than a few days or a week, drop significantly. The tendon has a tendency to retract and scar and be unable to reapproximate. Furthermore, nerve repair at this level can also be challenging. I recommended the Geovani that he see a hand specialist at [facility], Dr. Bolaños. I discussed the case with Dr. Esquivel and his staff and they were willing to accept him for consultation on Sunday with likely surgery that week. Geovani reports difficulties with transportation. He is unable to drive himself. He is also concerned about missing an appointment for his cataracts. I had a long discussion with Geovani that it is imperative that this is surgically repaired as it will not get better on its own. At the conclusion of the emergency room visit, the plan was for him to travel to [facility] for consultation and likely surgery. However, he called me soon after leaving to report that he did not have a ride on Sunday and he did not want to go to [facility]. I implored upon him the importance of getting this fixed to preserve any function of the thumb, although it will be difficult nonetheless. However, he was adamant that he wants it done locally. Therefore, I did offer to Geovani that I could attempt the FPL repair with digital nerve repair as well. I was very honest with him that this is a challenging surgery technically. The results after 2 weeks drop off significantly and there is a significant failure rate, even in the best of hands. It will also require his compliance with bracing and a postoperative protocol. I was also very honest with Geovani that we will attempt nerve repair but it may be not technically feasible for myself. He is aware of these limitations but still wants to proceed here at [facility]. I reviewed the risk of the procedure to include bleeding, infection, pain, stiffness, rerupture, persistent numbness, wound healing difficulties, need for repeat procedures. Despite these risk, he elects to proceed. Due to the timing and to allow him to visit with ophthalmology, I will plan to do this on either or Sunday. We will make more specific arrangements on Sunday when staff returns from the weekend. All of his questions were answered. Qualifiers: Encounter type: initial encounter Damage to nail status: without damage Foreign body presence: without foreign body Qualified Code(s): S61.012A - Laceration without foreign body of left thumb without damage to nail, initial encounter (2) Laceration of flexor tendon of left hand: Status: Acute Qualifiers: Encounter type: initial encounter Qualified Code(s): S66.822A - Laceration of other specified muscles, fascia and tendons at wrist and hand level, left hand, initial encounter (3) Laceration of digital nerve of left thumb: Status: Acute Qualifiers: Encounter type: initial encounter Qualified Code(s): S64.32XA - Injury of digital nerve of left thumb, initial encounter Review of Systems All systems reviewed & are unremarkable except as noted in HPI and below PFSH Medical History (Updated 09/22/19 @ 07:04 by Qamar Preston MD) Alcohol withdrawal (Inactive) Chest pain (Inactive) COPD (chronic obstructive pulmonary disease) (Chronic) Gastritis and duodenitis (Acute) Headache (Inactive) Upper GI bleed (Inactive) Varices of esophagus determined by endoscopy (Acute) Social History Smoking/Tobacco Use Status: Current every day Alcohol Intake: current Alcohol Intake frequency: a few times a week Drug use: Never Substance use type: does not use Do you feel safe at home: Yes Do you feel safe in your relationship?: Yes Exam Narrative Exam Narrative: Geovani is resting comfortably in a seated position. Evaluation of his left hand shows a semicircular laceration around the base of the thumb at the level of the thumb flexion crease for the MCP joint. It is nearly 180 degrees. It is closed with multiple interrupted sutures and has no signs of failure or infection. The thumb is in a rested extended position. He is unable to demonstrate any IP flexion of the thumb tip. He is able to show flexion of the MCP as well as abduction and extension. He lacks pinprick sensation over the palmar aspect of the thumb, both radially and ulnarly, from the level of the laceration distal. Resp Effort & Inspection: normal respiratory effort Auscultation: crackles Cardio Rate: regular rate Rhythm: regular rhythm Results Last Vital Signs Temp 36.3 C L 09/19/19 10:05 Pulse 102 H 09/19/19 10:05 Resp 16 09/19/19 10:05 BP 148/109 H 09/19/19 10:05 Pulse Ox 98 09/19/19 10:05
== END 2019-09-19 11:25 | disposition home or self-care (01) ==
PROVIDERS: Emergency Provider Physician Assistant; PCP Family Medicine
DX: S61.012D Laceration without foreign body of left thumb without damage to nail, subsequent encounter (principal); W26.0XXD Contact with knife, subsequent encounter; Z48.02 Encounter for removal of sutures; S66.822A Laceration of other specified muscles, fascia and tendons at wrist and hand level, left hand, initial encounter; S64.32XA Injury of digital nerve of left thumb, initial encounter; W26.0XXA Contact with knife, initial encounter
CPT/HCPCS: 99253

== ENCOUNTER 2019-09-23 08:11 | Outpatient (CLI) | payer MEDICAID, SELFPAY ==
[2019-09-25 02:53] LABS: COVID-19 RT-PCR Result NEGATIVE (Negative)
== END 2019-09-23 08:31 ==
PROVIDERS: PCP Family Medicine; Visit Provider Student in an Organized Health Care Education/Training Program
DX: S64.32XA Injury of digital nerve of left thumb, initial encounter (principal)
CPT/HCPCS: U0003

== ENCOUNTER 2019-09-26 10:22 | Day surgery (SDC) | payer MEDICAID, SELFPAY ==
[2019-09-26] VITALS (7 sets, daily range): BP systolic 76–134; BP diastolic 54–82; PULSE 66–90; RESP 15–29; TEMP 36.2–36.4; O2SAT 94–99
--- NOTE | 2019-09-26 | RT.EKG_ITS ---
APPROVED REPORT Exam: Resting ECG Patient Location: O HR:65 bpm ECG Measurements Heart Rate 65 AXIS HI [id number] P [id number] QRSd 116 QRS 31 QT 389 T [id number] QTc 404 <Conclusion> Atrial fibrillation...V-rate 52- 69, irreg A-activity Nonspecific intraventricular conduction delay...QRSd >115mS, not LBBB/RBBB Nonspecific repol abnormality, diffuse leads...ST dep, T flat/neg, ant/lat/inf
[2019-09-26] MEDS: Lactated Ringers 1,000 ML 80 ML IV (11:27)
[2019-09-26] MEDS: ceFAZolin 2 GM/50 ML BAG IVPB (12:45)
[2019-09-26] MEDS: Sodium Bicarbonate 50 MEQ/50 ML VIAL (12:58)
[2019-09-26] MEDS: Bupivacaine 0.25% Pres-Free 30 ML VIAL (14:20)
--- NOTE | 2019-09-26 14:40 | W.PM.DSUDISC ---
Discharge Plan Disposition Patient Disposition: HOME Condition: Good Discharge Details Reason For Visit: L THUMB LACERATION Attending Provider: Qamar Preston Primary Care Provider: Sherri Guzman V Home Meds and New Rx's Prescriptions: New hydrocodone-acetaminophen 5-325 mg tablet 1 tab PO Q4H PRN (Reason: pain) Qty: 18 RF: 0 acetaminophen 500 mg tablet 500 mg PO Q8H PRN (Reason: pain) Qty: 60 RF: 3 ibuprofen 600 mg tablet 600 mg PO TID PRNQty: 60 RF: 3 Continued nadolol [Corgard] 40 MG tablet 120 mg PO DAILY Qty: 30 RF: 0 topiramate [Topamax] 25 MG capsule, sprinkle 25 mg PO BID RF: 0 Qvar 8.7 GM aerosol 8.7 gm Inhalation BID RF: 0 Combivent 1 PUFF aerosol 2 puff Inhalation PRN PRNRF: 0 trazodone 100 MG tablet 150 mg PO HS Qty: 30 RF: 0 nicotine 21 MG/24 HR patch 24 hour 21 mg Transdermal DAILY Qty: 30 RF: 0 bupropion HCl [Wellbutrin SR] 150 MG tablet extended release 12 hr 150 mg PO BID Qty: 30 RF: 0 hydrocodone-acetaminophen 1 EACH tablet 1 tab-cap PO TID PRN PRNQty: 30 RF: 0 citalopram 20 MG tablet 20 mg PO QAM Qty: 30 RF: 0 gabapentin [Neurontin] 300 MG capsule 900 mg PO TID Qty: 90 RF: 0 zolpidem [Ambien] 10 MG tablet 10 mg PO HS PRN PRNRF: 0 cyclobenzaprine 10 MG tablet 20 mg PO TID PRNRF: 0 sucralfate 1 GM tablet 1 gm PO AC & HS Qty: 120 RF: 0 verapamil 120 mg tablet extended release 120 mg PO DAILY RF: 0 propranolol 160 mg capsule,extended release 24 hr 160 mg PO BID RF: 0 aspirin [Aspir-81] 81 mg Tablet,Delayed Release (Dr/Ec) 81 mg PO DAILY RF: 0 pantoprazole 40 mg tablet,delayed release (DR/EC) 40 mg PO DAILY RF: 0 albuterol sulfate 90 mcg/actuation Hfa Aerosol Inhaler 2 puff INHALATION PRN PRNRF: 0 Bevespi Aerosphere 9-4.8 mcg Hfa Aerosol Inhaler 1 inh INHALATION DAILY RF: 0 Discontinued thiamine mononitrate (vit B1) [Vitamin B-1 (mononitrate)] 100 MG tablet 100 mg PO DAILY Qty: 100 RF: 0 Discharge Instructions Instructions: A-fib (Atrial Fibrillation) (GEN) Additional Instructions: Activity: You should keep the hand elevated as much as possible for the first few days. You may use the other fingers as tolerated but avoid trying to do too much too soon. You may perform light activities with the splint in place. Dressing/Cast: Your splint should stay in place at all times. Do NOT get it wet. You may loosen the LINDSAY wrap if you feel it is too tight and then rewrap more loosely. Medications: - You should take Tylenol and Ibuprofen for baseline pain control. - You have Hydrocodone for breakthrough pain. You have been given a new prescription for Hydrocodone but you should return to your baseline dose after the first 3 or so days. - You may apply ice over the thumb. Follow-up: 7-10 days Stand Alone Forms: DSU Post op Instructions, [place] (DSU) Referrals: Qamar Preston MD [ [facility] STAFF PHYSICIAN] - Equipment/Supplies: Splint Activity:: Elevate Remove Dressings/Wound Care:: Do Not Remove Shower/Bathe:: Cover Diet:: As Tolerated Discharge Orders Discharge Orders: Discharge Order (Routine); Ordered 09/26/19 Ordered By: Qamar Preston Discharge Data Discharge Date/Time-TO BE ENTERED AT DEPARTURE: 09/26/19 16:47 Discharge Comment: DC'D HOME WITH FRIEND ROLANDA CAREY. DS: Diagnosis Discharge Diagnosis (1) Laceration of flexor tendon of left hand: Status: Acute
--- NOTE | 2019-09-26 14:57 | ANES_ITS ---
Date of service: 09/26/19 Time of Service: 14:57 Anesthesia Note During Brianna surgery today, it was noted that he was in a rate controlled a- fib. After surgery, he stated the verapamil is for his hypertension and he does not have atrial fibrillation. 12 lead confirms A-fib. I discussed this with his PCP at [facility], Sherri Guzman, who will see him in the office on October 08 for followup. I advised Derrick to keep this appointment, continue to take the aspirin daily as well as his verapamil, and if he experiences any chest pain or shortness of breath, then he should be seen at the Emergency Department. He agrees with the plan and will followup with PCP.
--- NOTE | 2019-09-26 18:20 | ROE_ITS ---
Date of service: 09/26/19 Time of Service: 14:33 Operative Note Operative Note DATE OF PROCEDURE: 09/26/19 PRE-OP DIAGNOSIS: Left Thumb Flexor Tendon Laceration, Left Thumb Digital Nerve Laceration POST-OP DIAGNOSIS: other (Lef Thumb Flexor Tendon Laceration, Left Thumb Digital Nerve Contusion) PROCEDURE: Left Thumb FPL repair, Left thumb radial and ulnar digital nerve neurolysis SURGEON: Qamar Preston ASSISTING SURGEON: Eh Hastings ANESTHESIA: GETA ESTIMATED BLOOD LOSS: 5 PATHOLOGY: none sent TOURNIQUET TIME: 0 COMPLICATIONS: None Patient was transported to: same day Patient's condition: stable Indications: Geovani is a 64-year-old who suffered a laceration to the palmar aspect of his left thumb over 2 weeks ago. He was seen initially in the emergency department where the laceration was evaluated and closed. Unfortunately, the flexor tendon was felt to be intact. However, on further follow-up, it was determined that the flexor tendon was not intact. He also had decreased sensation over the palmar aspect of the thumb. Therefore, I recommended operative repair of the flexor tendon. We would also evaluate the digital nerves at that time. I reviewed the risk of the procedure to include bleeding, infection, pain, stiffness, persistent numbness, failure of repair, re-tear, need for secondary procedures. Despite these risks, the patient elected to proceed. Findings: There is a zone 2 laceration of the FPL tendon between the oblique and A2 stanley. This was repaired using a cruciate 4-core suture repair with an epitendinous repair. The digital nerves were identified and they appear to be continuous although there was some notable scarring around the nerves and a partial laceration of the sidewall of the ulnar digital nerve. Procedure Description: Geovani was greeted in the preoperative holding area. Name and surgical site were confirmed. The history and physical was completed. The consent was reviewed the patient and signed. He was taken back to the operating room. The patient was placed in the supine position and monitored anesthesia care was initiated. The left was then prepped with ChloraPrep and draped in a standard fashion after a nonsterile tourniquet was placed high up onto the arm. Prophylactic antibiotics in the form of cefazolin were administered. A timeout was performed for safe surgery. The surgical site was drawn on the skin. The planned surgical field was a nesthetized with 1% lidocaine with epinephrine, buffered with sodium bicarbonate. The tourniquet was not used for the case. The previous transverse laceration at the flexor crease of the thumb was used as a base for the opening of the thumb. The previous laceration site was opened up through the flexor tendon crease and then extensions were made proximally and distally. This is also then brought down over the flexor tendon at the level A1 stanley just proximal and a Marvel's type fashion. The skin was then incised. Deep dissection was carried out with a tenotomy scissor. The radial and ulnar digital nerves were identified to the thumb. They are protected. The tendon sheath of the FPL tendon was identified. However, the tendon was not visible. Unfortunately, the tendon was cut much more distal than I was expecting. To better evaluate the tendon I did release the oblique stanley. I was able to find the proximal aspect of the tendon down within the base of the oblique stanley. There is a small aspect of scar tissue still attached to the tendon edge. With the thumb in some flexion, I released some of the tendon sheath moving distally to expose the flexor tendon. Once had no exposed I then cleaned off the edges using a tenotomy scissor removing any early scar tissue. I also released adhesions from the backside of the tendon. It was gliding freely from both ends, manipulated with a 4-0 nylon at the end of the tendons. I then used a #2- 0 FiberWire suture to reattach the 2 tendon edges. This was done using a cruciate style for core technique. This easily reapproximate the tendon edges together. There was some bulbous reapproximation. A epitendinous repair was then performed with a 6-0 nylon suture which did decrease the bulk of the tendon. Once this was completed I then repaired the oblique stanley. A portion of the stanley was released off the bone and rotated to lengthen the space of the stanley. It was easily reattached to the other side using a #3-0 FiberWire. This provided recreation of the stanley and no bowstringing of the tendon. The tendon moved freely underneath this. The wounds were thoroughly irrigated. The digital nerves were investigated. They were identified easily proximally and then followed distally. At the level of the laceration there is notable scarring around the nerve both radially and ulnarly. However, the nerve was still intact distally. There was some scar tissue seen and some partial laceration. However, since there was no obvious discontinuity of the nerve a neuro lysis was performed. There is no clear defect on either nerve and so therefore I did not do any repair or further takedown. The neuro lysis freed the nerve from any scarring at the level of the laceration. The wound was once again irrigated. The wound bed was further injected with 0.25% bupivacaine. The wound was closed with a #4-0 nylon. Dressings were Xeroform, 4 x 4's, web roll. I placed into an extension block splint. At the end the case all counts are correct. Mid she did go in and out of atrial fibrillation per the report of anesthesia. He was stable with a controlled rate and no anesthetic issues. A 12-lead EKG will be ordered in the PACU with likely follow-up with his primary care provider. Geovani was then transferred back to the PACU in stable condition. He will be in a splint for the next 7 to 10 days and then will come out of the splint and start early range of motion with hand therapy.
== END 2019-09-26 16:47 | disposition home or self-care (01) ==
PROVIDERS: PCP Family Medicine; Visit Provider Student in an Organized Health Care Education/Training Program
PROC: (CPT 26356; principal; 2019-09-26 12:00)
DX: S66.022A Laceration of long flexor muscle, fascia and tendon of left thumb at wrist and hand level, initial encounter (principal); S64.32XA Injury of digital nerve of left thumb, initial encounter; W26.0XXA Contact with knife, initial encounter
CPT/HCPCS: 26356; 64702; J0690; J1885; J2250; J2405; L3650

== ENCOUNTER 2019-11-12 02:31 | Outpatient (CLI) | payer MEDICAID, SELFPAY ==
[2019-11-12 12:12] LABS: HCT 50.3 % (40.0-50.0); HGB 16.6 g/dL (13.5-17.5); MCH 32.9 pg (27.0-33.0); MCV 99.8 fL (80-95); MPV 10.2 fL (8.0-11.0); Platelet Count 243 10^3/uL (130-400); RBC 5.04 10^6/uL (4.36-5.78); RDW 12.4 % (11.8-14.1); RDW-SD 45.9 fL; WBC 10.12 10^3/uL (4.4-10.8)
[2019-11-12 13:01] LABS: ALT 56 U/L (16-63); AST 60 U/L (15-37); Albumin 3.6 g/dL (3.4-5.0); Alkaline Phosphatase 79 U/L (46-116); Anion Gap 7.7 mmol/L (3-11); BUN 15 mg/dL (7-18); Bilirubin, Total 0.7 mg/dL (0.2-1.0); CO2 27.3 mmol/L (21.0-32.0); CREATININE 1.37 mg/dL (0.70-1.30); Calcium 9.3 mg/dL (8.5-10.1); Chloride 100 mmol/L (98-107); Estimated GFR 52.31 (mL/min/1.73m2); Glucose 114 mg/dL (74-106); Potassium 4.6 mmol/L (3.5-5.1); Sodium 135 mmol/L (136-145); Total Protein 7.7 g/dL (6.4-8.2)
== END 2019-11-12 02:51 ==
PROVIDERS: PCP Family Medicine; Visit Provider Family Medicine
DX: I10 Essential (primary) hypertension (principal); B19.20 Unspecified viral hepatitis C without hepatic coma; G89.4 Chronic pain syndrome; I48.91 Unspecified atrial fibrillation; M25.561 Pain in right knee; Z01.818 Encounter for other preprocedural examination
CPT/HCPCS: 36415; 80053; 85027

== ENCOUNTER 2019-11-14 08:28 | Day surgery (SDC) | payer MEDICAID, SELFPAY ==
[2019-11-14 08:35] VITALS: BP 116/88; PULSE 70; RESP 16; TEMP 36.6; O2SAT 98
[2019-11-14] MEDS: Tropicam./Phenyleph. (1/2.5%) 5 ML BTL OS ×3 (09:05→09:20)
[2019-11-14] MEDS: Lidocaine 2% Jelly 6 ML SYR (09:56)
[2019-11-14] MEDS: Povidone-Iodine Ophth 30 ML BTL (09:56)
[2019-11-14] MEDS: Tetracaine 0.5% 4 ML BTL OS (09:56)
[2019-11-14] MEDS: Lidocaine 1% Pres-Free 5 ML VIAL (10:01)
[2019-11-14] MEDS: Duovisc Viscoelastic System EACH 1 EACH (10:01)
[2019-11-14] MEDS: Balanced Salt Soln.-PLUS 500 ML BAG (10:01)
[2019-11-14] MEDS: Trypan Blue 0.06% 0.5 ML SYR (10:24)
[2019-11-14] MEDS: Moxifloxacin-PF 1 MG/ML VIAL (10:32)
--- NOTE | 2019-11-14 10:41 | W.PM.DSUDISC ---
Discharge Plan Disposition Patient Disposition: HOME Condition: Good Discharge Details Reason For Visit: CATARACT Attending Provider: Chino Fish Primary Care Provider: Sherri Guzman V Home Meds and New Rx's Prescriptions: No Action nadolol [Corgard] 40 MG tablet 120 mg PO DAILY Qty: 30 RF: 0 topiramate [Topamax] 25 MG capsule, sprinkle 25 mg PO BID RF: 0 Combivent 1 PUFF aerosol 2 puff Inhalation PRN PRNRF: 0 nicotine 21 MG/24 HR patch 24 hour 21 mg Transdermal DAILY Qty: 30 RF: 0 bupropion HCl [Wellbutrin SR] 150 MG tablet extended release 12 hr 150 mg PO BID Qty: 30 RF: 0 hydrocodone-acetaminophen 1 EACH tablet 1 tab-cap PO TID PRN PRNQty: 30 RF: 0 citalopram 20 MG tablet 20 mg PO QAM Qty: 30 RF: 0 gabapentin [Neurontin] 300 MG capsule 900 mg PO TID Qty: 90 RF: 0 zolpidem [Ambien] 10 MG tablet 10 mg PO HS PRN PRNRF: 0 cyclobenzaprine 10 MG tablet 20 mg PO TID PRNRF: 0 sucralfate 1 GM tablet 1 gm PO AC & HS Qty: 120 RF: 0 verapamil 120 mg tablet extended release 120 mg PO DAILY RF: 0 propranolol 160 mg capsule,extended release 24 hr 160 mg PO BID RF: 0 aspirin [Aspir-81] 81 mg Tablet,Delayed Release (Dr/Ec) 81 mg PO DAILY RF: 0 pantoprazole 40 mg tablet,delayed release (DR/EC) 40 mg PO DAILY RF: 0 albuterol sulfate 90 mcg/actuation Hfa Aerosol Inhaler 2 puff INHALATION PRN PRNRF: 0 Bevespi Aerosphere 9-4.8 mcg Hfa Aerosol Inhaler 1 inh INHALATION DAILY RF: 0 hydrocodone-acetaminophen 5-325 mg tablet 1 tab PO Q4H PRN (Reason: pain) Qty: 18 RF: 0 acetaminophen 500 mg tablet 500 mg PO Q8H PRN (Reason: pain) Qty: 60 RF: 3 ibuprofen 600 mg tablet 600 mg PO TID PRNQty: 60 RF: 3 albuterol sulfate [ProAir HFA] 90 mcg/actuation Hfa Aerosol Inhaler 2 puff INHALATION RF: 0 Discharge Instructions Stand Alone Forms: Post-op Topical Cataract, [place] (DSU) Discharge Orders Discharge Orders: Discharge Order (Routine); Ordered 11/14/19 Ordered By: Chino Fish DS: Diagnosis Discharge Diagnosis (1) Nuclear sclerotic cataract of left eye: Status: Resolved
--- NOTE | 2019-11-14 10:42 | W.PM.OP ---
Date of service: 11/14/19 Time of Service: 10:42 Operative Note Operative Note DATE OF PROCEDURE: 11/14/19 PRE-OP DIAGNOSIS: Dense nuclear cataract, left eye; poor red reflex, left eye secondary to cataract POST-OP DIAGNOSIS: same PROCEDURE: Cataract extraction using phacoemulsification with intraocular lens implant, left eye, using capsular staining with Vision Blue SURGEON: Chino Fish ANESTHESIA: MAC (with local sub-tenon's anesthetic injection) COMPLICATIONS: None Patient was transported to: same day Patient's condition: stable Implants: Ed and Ed / [employer] Tecnis [id number] Indications: Progressive decreased vision due to cataract, left eye, with poor red reflex Findings: Patient during the surgery and was very fidgety. His eye contact despite multiple attempts at keeping him oriented. Procedure Description: CATARACT SURGERY OPERATIVE REPORT PREOPERATIVE DIAGNOSIS: 1. Nuclear cataract left eye 2. Poor red reflex secondary to #1 POSTOPERATIVE DIAGNOSIS: Same OPERATION: 1. Cataract extraction using phacoemulsification with posterior chamber intraocular lens implant, left eye. 2. Capsular staining with Vision Blue IOL: IOL Business Office Director/Model: Ed & Ed / VALENTINE Tecnis [id number] IOL Power: + 20.0 diopters IOL Serial Number: [id number] Optic Diameter: 6.0 mm Haptic/Overall Diameter: 13.0 mm PHACO INFO: Miguel [employer]ion Vision System with OZil and Active Fluidics Cumulative Dispersed Energy (CDE): 20.0 right seconds SURGEON: Chino Fish MD, NATALI ANESTHESIA: Monitored [facility] (MAC), with local sub-tenon's anesthetic infiltration COMPLICATIONS: None SPECIMENS: None INDICATIONS FOR PROCEDURE: The patient is a 64-year-old gentleman with diminished visual acuity in his left eye. He is noted to have a dense nuclear cataract in the left eye. After cataract surgery patient wished to PROCEDURE: The correct surgical eye was identified and marked as the left eye and the pupil was dilated in the preoperative area using mydriatics and cycloplegics. The dilated pupil size was 7.0 mm. Oral sedation was administered in the form of an Imprimis MKO Melt (midazolam 3mg/ketamine 25mg/ondansetron 2mg). The patient was brought to the operating room where cardiopulmonary monitoring was instituted and surgical time-out was performed, confirming the correct operative eye and IOL power. Topical anesthesia was administered and ophthalmic povidone-iodine 5% was instilled into the conjunctival fornices. Lidocaine gel was applied to the cornea and the sesar-ocular area was prepped with Betadine 10% solution and draped in the usual sterile fashion for intraocular surgery, including an aperture drape. A Tegaderm transparent film dressing was cut in half and used to cover the lashes and lid margins. Care was taken to sequester the lashes and lid margins under the Tegaderm dressing. A lid speculum was placed between the lids of the operative eye and the Mel-Billy operating microscope was maneuvered into position. Maikel scissors were then used to make a conjunctival buttonhole approximately 6mm posterior to the limbus in the inferonasal quadrant. Blunt dissection was carried out to expose bare sclera, and a blunt-tipped sub-tenon?s anesthesia cannula was introduced and passed posteriorly along the globe where non-preserved plain lidocaine was injected into posterior sub-Tenon?s space. A sideport knife was used to make a paracentesis port superiorly/superiortemporally. Intraocular phenylephrine/lidocaine was injected int the anterior chamber.. Air was then injected into the anterior chamber, followed by Vision Blue, which was painted over the anterior capsule and then irrigated out using BSS. The anterior chamber was filled with Miguel Viscoat. A 2.4mm keratome knife was used to create a half-thickness groove at the limbus and then to construct a three-plane near-clear corneal tunnel extending 2.0mm into clear cornea at the 3:00 position. A flap was raised on the anterior capsule and capsulorhexis forceps were used to complete a continuous curvilinear capsulorhexis of 4.8 mm. The capsulorrhexis had to be performed by examining the eye with forceps using the tongue and capsulorhexis forceps. The patient's eye moved wildly during the entire case. Balanced salt solution was then used to perform cortical cleaving hydrodissection and nuclear hydrodelineation until the lens could be freely rotated within the capsular bag. The lens nucleus was then disassembled and removed within the capsular bag and iris plane using phacoemulsification. Residual cortical material was removed using the 45-degree angled silicone I/A tip with 0.3mm port. The posterior capsule was carefully polished to remove as much residual lens epithelial cells as safely possible. The capsular bag was then inflated and the anterior chamber deepened with . The lens implant described above was inserted into the capsular bag using the VALENTINE [place] Injector. A Kuglen hook was used to dial the IOL into position. Residual viscoelastic was then removed first from posterior to the IOL, then from the anterior chamber using the I/A handpiece. The lens implant was noted to center nicely within the capsular bag. The incisions were stromally hydrated, and the anterior chamber was reformed using BSS. Then 0.5cc of moxifloxacin 1.0mg/ml were injected into the capsular bag and anterior chamber. The incisions were checked with a Weck spear and found to be secure. Several drops of ophthalmic povidone-iodine 5% were then applied to the eye followed by two drops of Imprimis combination prednisolone/moxifloxacin/nepafenac solution. The drapes were removed and a clear plastic protective eye shield was placed over the eye. The patient was then returned to Same Day Surgery in stable condition.
[2019-11-14 11:04] VITALS: BP 132/86; PULSE 78; RESP 18; TEMP 36.4; O2SAT 93
== END 2019-11-14 11:15 | disposition home or self-care (01) ==
PROVIDERS: PCP Family Medicine; Visit Provider Ophthalmology
PROC: (CPT 66982; principal; 2019-11-14 10:30)
DX: H25.12 Age-related nuclear cataract, left eye (principal); H35.89 Other specified retinal disorders
CPT/HCPCS: 66982; V2632

== ENCOUNTER 2019-11-28 07:31 | Day surgery (SDC) | payer MEDICAID, SELFPAY ==
[2019-11-28] VITALS (10 sets, daily range): BP systolic 80–118; BP diastolic 56–90; PULSE 60–82; RESP 12–21; TEMP 36–36.3; O2SAT 94–98
[2019-11-28] MEDS: Tropicam./Phenyleph. (1/2.5%) 5 ML BTL OD ×3 (08:02→08:18)
[2019-11-28] MEDS: Tetracaine 0.5% 4 ML BTL OD (08:59)
[2019-11-28] MEDS: Duovisc Viscoelastic System EACH 1 EACH (09:18)
--- NOTE | 2019-11-28 09:29 | W.PM.DSUDISC ---
Discharge Plan Disposition Patient Disposition: HOME Condition: Good Discharge Details Attending Provider: Chino Fish Primary Care Provider: Sherri Guzman V Home Meds and New Rx's Prescriptions: No Action nadolol [Corgard] 40 MG tablet 120 mg PO DAILY Qty: 30 RF: 0 topiramate [Topamax] 25 MG capsule, sprinkle 25 mg PO BID RF: 0 Combivent 1 PUFF aerosol 2 puff Inhalation PRN PRNRF: 0 nicotine 21 MG/24 HR patch 24 hour 21 mg Transdermal DAILY Qty: 30 RF: 0 bupropion HCl [Wellbutrin SR] 150 MG tablet extended release 12 hr 150 mg PO BID Qty: 30 RF: 0 hydrocodone-acetaminophen 1 EACH tablet 1 tab-cap PO TID PRN PRNQty: 30 RF: 0 citalopram 20 MG tablet 20 mg PO QAM Qty: 30 RF: 0 gabapentin [Neurontin] 300 MG capsule 900 mg PO TID Qty: 90 RF: 0 zolpidem [Ambien] 10 MG tablet 10 mg PO HS PRN PRNRF: 0 cyclobenzaprine 10 MG tablet 20 mg PO TID PRNRF: 0 sucralfate 1 GM tablet 1 gm PO AC & HS Qty: 120 RF: 0 verapamil 120 mg tablet extended release 120 mg PO DAILY RF: 0 propranolol 160 mg capsule,extended release 24 hr 160 mg PO BID RF: 0 aspirin [Aspir-81] 81 mg Tablet,Delayed Release (Dr/Ec) 81 mg PO DAILY RF: 0 pantoprazole 40 mg tablet,delayed release (DR/EC) 40 mg PO DAILY RF: 0 albuterol sulfate 90 mcg/actuation Hfa Aerosol Inhaler 2 puff INHALATION PRN PRNRF: 0 Bevespi Aerosphere 9-4.8 mcg Hfa Aerosol Inhaler 1 inh INHALATION DAILY RF: 0 hydrocodone-acetaminophen 5-325 mg tablet 1 tab PO Q4H PRN (Reason: pain) Qty: 18 RF: 0 acetaminophen 500 mg tablet 500 mg PO Q8H PRN (Reason: pain) Qty: 60 RF: 3 ibuprofen 600 mg tablet 600 mg PO TID PRNQty: 60 RF: 3 albuterol sulfate [ProAir HFA] 90 mcg/actuation Hfa Aerosol Inhaler 2 puff INHALATION DAILY RF: 0 Discharge Instructions Stand Alone Forms: Post-op Topical Cataract, [place] (DSU) Discharge Orders Discharge Orders: Discharge Order (Routine); Ordered 11/28/19 Ordered By: Chino Fish DS: Diagnosis Discharge Diagnosis (1) Nuclear sclerotic cataract of right eye: Status: Acute
--- NOTE | 2019-11-28 09:30 | ROE_ITS ---
Date of service: 11/28/19 Time of Service: 09:31 Operative Note Operative Note DATE OF PROCEDURE: 11/28/19 PRE-OP DIAGNOSIS: Dense nuclear cataract, right eye POST-OP DIAGNOSIS: same PROCEDURE: Procedure aborted prior to capsulorhexis due to pt movement and non- cooperation SURGEON: Chino Fish ANESTHESIA: MAC and local (sub-tenon's anesthetic infiltration) ESTIMATED BLOOD LOSS: 0 PATHOLOGY: none sent COMPLICATIONS: Other Patient was transported to: same day Patient's condition: stable Implants: No implant placed Indications: Progressive decreased vision due to cataract, right eye Procedure Description: CATARACT SURGERY OPERATIVE REPORT PREOPERATIVE DIAGNOSIS: Dense nuclear cataract, right eye POSTOPERATIVE DIAGNOSIS: Same OPERATION: Surgery aborted due to pt movement/non-cooperation IOL: NONE PHACO INFO: NONE SURGEON: Chino Fish MD, NATALI ANESTHESIA: Monitored Anesthesia Care (MAC), with local sub-tenon's anesthetic infiltration, IV sedation COMPLICATIONS: None SPECIMENS: None INDICATIONS FOR PROCEDURE: The patient is a 64-year-old gentleman with history of dense bilateral nuclear cataracts. He has already undergone cataract surgery in the left eye and is doing well postoperatively. He now presents for cataract surgery in the right eye. PROCEDURE: The correct surgical eye was identified and marked as the right eye and the pupil was dilated in the preoperative area using mydriatics and cy cloplegics. The dilated pupil size was 7.0 mm. Oral sedation was administered in the form of an Imprimis MKO Melt (midazolam 3mg/ketamine 25mg/ondansetron 2mg) x 2. The patient was brought to the operating room where cardiopulmonary monitoring was instituted and surgical time-out was performed, confirming the correct operative eye and IOL power. Topical anesthesia was administered and ophthalmic povidone-iodine 5% was instilled into the conjunctival fornices. The patient's head was taped to the stretcher due to constant movement. Lidocaine gel was applied to the cornea and the sesar-ocular area was prepped with Betadine 10% solution and draped in the usual sterile fashion for intraocular surgery, including an aperture drape. A Tegaderm transparent film dressing was cut in half and used to cover the lashes and lid margins. Care was taken to sequester the lashes and lid margins under the Tegaderm dressing. A lid speculum was placed between the lids of the operative eye and the Mel-Billy operating microscope was maneuvered into position. Maikel scissors were then used to make a conjunctival buttonhole approximately 6mm posterior to the limbus in the inferonasal quadrant. He had significant difficulty in following directions and could not lie still. He was babbling incoherently, but would occasionally respond to commands. Blunt dissection was carried out to expose bare sclera, and a blunt-tipped sub-tenon?s anesthesia cannula was introduced and passed posteriorly along the globe where non- preserved plain lidocaine was injected into posterior sub-Tenon?s space. A sideport knife was used to make a paracentesis port inferiortemporally. Intraocular phenylephrine/lidocaine was injected into the anterior chamber. The anterior chamber was then filled with VisCoat. A 0.4 mm keratome knife was then used to create a clean incision at the 10 o'clock position. The patient moved suddenly during creation of the incision, however, the anterior capsule did not appear to be violated. IV access was then obtained and intravenous Precedex was given. Despite this, the patient continued to constantly moved suddenly and was not able to lie still or respond to commands. He continued to talk incoherently. At this point the decision was made to abort the procedure. He cannot be converted to general anesthesia as he has an atrial fibrillation that needs to be worked up. Irrigation/aspiration handpiece was then used to remove as much Viscoat as possible from the anterior chamber, with difficulty due to patient movement. The wounds were stromally hydrated, and 0.5 cc of moxifloxacin 1 mg/mL were injected into the anterior chamber. The drapes were removed and a protective shield was placed over the eye. The patient was returned to day surgery in stable condition. End of dictation on Derrick Harmon
[2019-11-28] MEDS: Balanced Salt Soln.-PLUS 500 ML BAG (09:31)
[2019-11-28] MEDS: Lidocaine 1% Pres-Free 5 ML VIAL (09:32)
[2019-11-28] MEDS: Lidocaine 2% Jelly 6 ML SYR (09:32)
[2019-11-28] MEDS: Moxifloxacin-PF 1 MG/ML VIAL (09:34)
[2019-11-28] MEDS: Povidone-Iodine Ophth 30 ML BTL (09:35)
[2019-11-28] MEDS: Albuterol/Ipratropium 3 ML UPD VIAL (09:45)
--- NOTE | 2019-11-28 12:30 | NUR.NOTE ---
Phase II completed. Attempted to escort out to niece. [place] unsteady. Placed in wheel chair. Patient states he has to climb 17 steps to get into his apartment. This nurse went out to talk with niece who voices concerns of not being able manage him with the steps and her is the one that cares for him. called with 1 hour ETA. Patient remains in wheel chair in [facility] awaiting nephew. Nursing Note:
== END 2019-11-28 13:45 | disposition home or self-care (01) ==
PROVIDERS: PCP Family Medicine; Visit Provider Ophthalmology
PROC: (CPT 66984; principal; 2019-11-28 09:30)
DX: H25.11 Age-related nuclear cataract, right eye (principal); Z53.8 Procedure and treatment not carried out for other reasons; I48.91 Unspecified atrial fibrillation; F17.210 Nicotine dependence, cigarettes, uncomplicated
CPT/HCPCS: 66984; J7620

== ENCOUNTER 2020-01-06 01:10 | Outpatient (CLI) | payer MEDICAID, SELFPAY ==
--- NOTE | 2020-01-06 | DI.US_ITS ---
APPROVED REPORT EXAM: Comprehensive 2D, Doppler, and color-flow Echocardiogram Patient Location: Out-Patient Gaming Dealer: Naty Menendez RDCS (AE) Indications: Atrial Fibrillation Other Information Study Quality: Fair Conclusion Left Ventricle : The left ventricle is normal size. The left ventricular systolic function is normal. The left ventricular ejection fraction is within the normal range. There is normal left ventricular wall thickness. There is normal LV segmental wall motion. Diastolic function is indeterminate. LVEF i s 55%. Right Ventricle : The right ventricle is normal size. The right ventricular systolic function is norm al. The RVSP is 20.3mmHg. Atria : The left atrium size is normal. The right atrium size is normal. Valves: There are no hemodynamically significant valvular lesions. Great Vessels : The aortic root is normal in size. The ascending aorta is moderately dilated (3.9cm). Aortic arch is normal in caliber. IVC is normal in size and collapses >50% with inspiration. Please see remainder of study for further details. Wall motion Left Ventricle The left ventricle is normal size. The left ventricular systolic function is normal. The left ventric ular ejection fraction is within the normal range. There is normal left ventricular wall thickness. T here is normal LV segmental wall motion. Diastolic function is indeterminate. There is no ventricular septal defect visualized. LVEF is 55%. Right Ventricle The right ventricle is normal size. The right ventricular systolic function is normal. The RVSP is 20 .3mmHg. Atria The left atrium size is normal. The right atrium size is normal. The interatrial septum is intact wit h no evidence for an atrial septal defect. Aortic Valve The Aortic valve is sclerotic. Aortic valve is trileaflet. There is no aortic valvular stenosis. No a ortic regurgitation is present. Mitral Valve Mild mitral annular calcification. No evidence of mitral valve stenosis. Trace mitral regurgitation. Tricuspid Valve The tricuspid valve is normal in structure. There is no tricuspid valve stenosis. Trace tricuspid reg urgitation. Pulmonic Valve The pulmonary valve is normal in structure. There is no pulmonic valvular stenosis. There is no pulmo christiano valvular regurgitation. Great Vessels The aortic root is normal in size. The ascending aorta is moderately dilated. Aortic arch is normal i n caliber. IVC is normal in size and collapses >50% with inspiration. Pericardium There is no pericardial effusion. 2D Dimensions IVSD d PLAX 0.98 cm M: 0.6-1.2 LV Vol A2C d MOD 87.4 mL LVPW d PLAX 1.02 cm M: 0.6 - 1.2 LV Vol A4C d MOD 81.8 mL LVID d PLAX 5.03 cm M: 4.2 - 5.8 LA vol/ BSA A2C s A-L 37.5 mL/m2 LVDs 3.55 cm M: 2.5 - 4.0 LA vol/ BSA A4C s A-L 41.0 mL/m2 Ao Root d 3.07 cm M: 3.1 - 3.7 LA Vol/ BSA Biplane s A-L 40.0 mL/m2 RA Area A4C 13.99 cm2 LA Area A4C s MOD 25.04 cm2 RA Vol/ BSA A4C s A-L 13.6 mL/m2 LA Area A2C s MOD 24.41 cm2 Ao Asc Diam d 3.87 cm M: 2.6 - 3.4 LV EF A4C MOD 56.2 % LV EF Teichholz 55.0 % LV EF A2C MOD 54.0 % LVEF (Farrar's) 53.60 % M: 52 - 72 LV EF Biplane MOD 53.6 % LV Volume 62.74 mL M: 62 - 150 SV 45.56 mL LV Volume Index 29.87 mL/m2 M: 34 - 74 SV Index 21.69 mL/m2 LV Vol Biplane MOD 85.0 mL FS 28.65 % M-Mode TAPSE 2.19 cm (M/F) >1.7 LV Diastology MV E' medial 0.058 (>0.07 m/s) E/A Ratio 1.7 LV E/e MED 8.90 (<14) MV E Vmax 0.51 (0.4-1.3 m/s) MV E' lateral 0.063 (>0.1 m/s) MV A Vmax 0.30 (0.4-1.3 m/s) LV E/e LAT 8.20 (<14) MV E/A Ratio 1.56 MV E/E' medial 8.93 MV E/E' lateral 8.23 Aortic Valve LVOT Area 3.53 cm2 AoV Area Vmax 2.53 cm2 LVOT Vmax 0.73 m/s AoV Area/ BSA (Vmax) 1.21 cm2/m2 LVOT Mean Max. 0.46 m/s BOB Mean Max. 2.10 cm2 LVOT Peak Grad 2.1 mmHg BOB Mean Max. Index 1.00 cm2/m2 LVOT Mean Grad 1.0 mmHg LVOT VTI 0.109 m LVOT Diam s 2.10 cm AoV Vmax 1.01 m/s Velocity Ratio 0.72 AoV Mean Max. 0.77 m/s AoV Peak Grad 4.1 mmHg LVOT SV 38.66 mL AoV Mean Grad 2.6 mmHg AoV VTI 0.146 m AoV Area VTI 2.64 cm2 AoV Area/ BSA (VTI) 1.26 cm/m2 Mitral Valve MV DT 215 (160-240 msec) MV PHT 62 msec MV Area PHT 3.52 cm2 Pulmonary Valve PV Vmax 0.86 (0.5-1.5 m/s) RVOT Peak Gr. 1.03 mmHg PV Peak Grad 3.0 mmHg RVOT Mean Gr. 0.45 mmHg PV Mean Grad 1.9 mmHg RVOT VTI 0.080 m PV VTI 0.126 m RVOT Vmax 0.51 m/s Tricuspid Valve TR Peak Grad 17.2 mmHg TR Vmax 2.08 m/s RA Pressure 3.00 mmHg RVSP (TR) 20.3 mmHg
== END 2020-01-06 01:30 ==
PROVIDERS: PCP Family Medicine; Visit Provider Family Medicine
DX: I77.810 Thoracic aortic ectasia (principal)
CPT/HCPCS: 93306

== ENCOUNTER 2020-01-20 03:58 | Outpatient (CLI) | payer MEDICAID, SELFPAY ==
[2020-01-21 17:34] LABS: SARS-CoV-2 RNA Not Detected (NotDetected); SARS-CoV-2 RNA Source Nasal/Nares
== END 2020-01-20 04:18 ==
PROVIDERS: PCP Family Medicine; Visit Provider Ophthalmology
DX: Z01.818 Encounter for other preprocedural examination (principal)
CPT/HCPCS: U0003

== ENCOUNTER 2020-01-23 06:39 | Day surgery (SDC) | payer MEDICAID, SELFPAY ==
[2020-01-23 07:01] VITALS: BP 134/95; PULSE 87; RESP 18; TEMP 36.1; O2SAT 95
[2020-01-23] MEDS: Tropicam./Phenyleph. (1/2.5%) 5 ML BTL ×3 (07:19→07:35)
[2020-01-23] MEDS: Lactated Ringers 1,000 ML 80 ML IV ×2 (07:30→08:53)
[2020-01-23] MEDS: Tetracaine 0.5% 4 ML BTL (09:25)
[2020-01-23] MEDS: Moxifloxacin-PF 1 MG/ML VIAL (09:26)
[2020-01-23] MEDS: Balanced Salt Soln.-PLUS 500 ML BAG (09:26)
[2020-01-23] MEDS: Duovisc Viscoelastic System EACH 1 EACH (09:27)
[2020-01-23] MEDS: Lidocaine 1% Pres-Free 5 ML VIAL (09:27)
[2020-01-23] MEDS: Lidocaine 2% Jelly 6 ML SYR (09:28)
[2020-01-23] MEDS: Povidone-Iodine Ophth 30 ML BTL (09:29)
--- NOTE | 2020-01-23 09:48 | W.PM.DSUDISC ---
Discharge Plan Disposition Patient Disposition: HOME Condition: Good Discharge Details Attending Provider: Chino Fish Primary Care Provider: Sherri Guzman V Home Meds and New Rx's Prescriptions: No Action sumatriptan succinate 50 mg tablet See Rx Instructions PO .COMPLEX RF: 0 magnesium oxide 400 mg (241.3 mg magnesium) tablet 400 mg PO DAILY RF: 0 famotidine 20 mg tablet 20 mg PO DAILY RF: 0 Combivent 1 PUFF aerosol 2 puff Inhalation PRN PRNRF: 0 nicotine 21 MG/24 HR patch 24 hour 21 mg Transdermal DAILY Qty: 30 RF: 0 bupropion HCl [Wellbutrin SR] 150 MG tablet extended release 12 hr 150 mg PO BID Qty: 30 RF: 0 citalopram 20 MG tablet 20 mg PO QAM Qty: 30 RF: 0 cyclobenzaprine 10 MG tablet 10 mg PO TID PRNRF: 0 sucralfate 1 GM tablet 1 gm PO AC & HS Qty: 120 RF: 0 verapamil 120 mg Tablet Extended Release 120 mg PO DAILY RF: 0 propranolol 160 mg Capsule,Extended Release 24 Hr 160 mg PO DAILY RF: 0 polyethylene glycol 3350 17 gram Powder In Packet 17 g PO DAILY PRNRF: 0 lidocaine 5 % Cream 1 applic TOPICAL QID PRNRF: 0 thiamine HCl (vitamin B1) 100 mg Tablet 100 mg PO DAILY RF: 0 hydrocodone-acetaminophen 10-325 mg Tablet 1 tab PO BID PRNRF: 0 aspirin [Aspir-81] 81 mg Tablet,Delayed Release (Dr/Ec) 81 mg PO DAILY RF: 0 triamcinolone acetonide 0.1 % Cream 1 applic TOPICAL BID RF: 0 gabapentin 800 mg Tablet 800 mg PO TID RF: 0 terazosin 1 mg Tablet 2 mg PO HS RF: 0 topiramate 50 mg Tablet 50 mg PO BID RF: 0 zolpidem 12.5 mg Tablet,Ext Release Multiphase 12.5 mg PO QHS PRNRF: 0 diclofenac sodium 1 % Gel 4 g TOPICAL QID RF: 0 Bevespi Aerosphere 9-4.8 mcg Hfa Aerosol Inhaler 2 puff INHALATION BID RF: 0 pantoprazole 40 mg tablet,delayed release (DR/EC) 40 mg PO DAILY RF: 0 albuterol sulfate 90 mcg/actuation Hfa Aerosol Inhaler 2 puff INHALATION PRN PRNRF: 0 Bevespi Aerosphere 9-4.8 mcg Hfa Aerosol Inhaler 1 inh INHALATION DAILY RF: 0 albuterol sulfate [ProAir HFA] 90 mcg/actuation Hfa Aerosol Inhaler 2 puff INHALATION DAILY RF: 0 Discharge Instructions Stand Alone Forms: [place] ([facility]) Discharge Orders Discharge Orders: Discharge Order (Routine); Ordered 01/23/20 Ordered By: Chino Fish DS: Diagnosis Discharge Diagnosis (1) Nuclear sclerotic cataract of right eye: Status: Resolved
--- NOTE | 2020-01-23 09:51 | W.PM.OP ---
Date of service: 01/23/20 Time of Service: 09:52 Operative Note Operative Note DATE OF PROCEDURE: 01/23/20 PRE-OP DIAGNOSIS: Nuclear cataract, right eye POST-OP DIAGNOSIS: same PROCEDURE: Cataract extraction using phacoemulsification with intraocular lens implant, right eye SURGEON: Chino Fish ANESTHESIA: GETA and local (sub-tenon's anesthetic infiltration) ESTIMATED BLOOD LOSS: 0 PATHOLOGY: none sent COMPLICATIONS: None Patient was transported to: same day Patient's condition: stable Implants: [employer] / [employer] Tecnis ZCB00 intraocular lens Indications: Progressive decreased vision due to cataract, right eye. Patient is a 64-year-old gentleman history of dense bilateral cataracts. He has pretty undergone cataract surgery in the left eye and is doing well postoperatively. He presented for surgery in the right eye on 11/28/2019, but surgery was aborted due to constant patient movement/poorly cooperative. He now presents for cataract surgery in the right eye under general anesthesia. Procedure Description: CATARACT SURGERY OPERATIVE REPORT PREOPERATIVE DIAGNOSIS: Dense nuclear cataract, right eye POSTOPERATIVE DIAGNOSIS: Same OPERATION: Cataract extraction using phacoemulsification with posterior chamber intraocular lens implant, right eye. IOL: IOL [employer] Information Clerk/Model: [employer] / VALENTINE Tecnis ZCB00 IOL Power: +20.00 diopters Optic Diameter: 6.0mm Haptic/Overall Diameter: 13.0mm PHACO INFO: [employer] Vision System with OZil and Active [employer] Cumulative Dispersed Energy (CDE): 15.86 seconds SURGEON: Chino Fish MD, NATALI ANESTHESIA: Genreal/Endotracheal, with local sub-tenon's anesthetic infiltration COMPLICATIONS: None SPECIMENS: None INDICATIONS FOR PROCEDURE: Patient is a 64-year-old gentleman with history of dense bilateral nuclear cataracts. He has already undergone cataract surgery in the left eye and is doing well postoperatively. He presented on 11/28/2019 for cataract surgery in the right eye, but surgery had to be aborted prior to capsulorrhexis due to poor cooperation, constant patient movement. He now presents for cataract surgery of the right eye under general anesthesia. PROCEDURE: The correct surgical eye was identified and marked as the right eye and the pupil was dilated in the preoperative area using mydriatics and cycloplegics. The dilated pupil size was 7.0 mm. The patient was brought to the operating room where cardiopulmonary monitoring was instituted and surgical time-out was performed, confirming the correct operative eye and IOL power. General endotracheal anesthesia was administered. Topical anesthesia was administered and ophthalmic povidone-iodine 5% was instilled into the conjunctival fornices. Lidocaine gel was applied to the cornea and the sesar-ocular area was prepped with Betadine 10% solution and draped in the usual sterile fashion for intraocular surgery, including an aperture drape. A Tegaderm transparent film dressing was cut in half and used to cover the lashes and lid margins. Care was taken to sequester the lashes and lid margins under the Tegaderm dressing. A lid speculum was placed between the lids of the operative eye and the Mel-Billy operating microscope was maneuvered into position. Maikel scissors were then used to make a conjunctival buttonhole approximately 6mm posterior to the limbus in the inferonasal quadrant. Blunt dissection was carried out to expose bare sclera, and a blunt-tipped sub-tenon?s anesthesia cannula was introduced and passed posteriorly along the globe where non-preserved plain lidocaine was injected into posterior sub-Tenon?s space. A sideport knife was used to make a paracentesis port inferiortemporally. Intraocular phenylephrine/lidocaine was injected into the anterior chamber. The anterior chamber was then filled with viscoelastic. A 2.4mm keratome knife was used to create a half-thickness groove at the limbus and then to construct a three-plane near-clear corneal tunnel extending 2.0mm into clear cornea in the superiortemporal position. . A flap was raised on the anterior capsule and capsulorhexis forceps were used to complete a continuous curvilinear capsulorhexis of 5.5 mm. Balanced salt solution was then used to perform cortical cleaving hydrodissection and nuclear hydrodelineation until the lens could be freely rotated within the capsular bag. The lens nucleus was then disassembled and removed within the capsular bag and iris plane using phacoemulsification. Residual cortical material was removed using the I/A handpiece. The posterior capsule was carefully polished to remove as much residual lens epithelial cells as safely possible. The capsular bag was then inflated and the anterior chamber deepened with viscoelastic. The lens implant described above was inserted into the capsular bag using the VALENTINE Galien Injector. A Kuglen hook was used to dial the IOL into position. Residual viscoelastic was then removed first from posterior to the IOL, then from the anterior chamber using the I/A handpiece. The lens implant was noted to center nicely within the capsular bag. The incisions were stromally hydrated, and the anterior chamber was reformed using BSS. Then 0.5cc of moxifloxacin 1.0mg/ml were injected into the capsular bag and anterior chamber. The incisions were checked with a Weck spear and found to be secure. Several drops of ophthalmic povidone-iodine 5% were then applied to the eye followed by two drops of Imprimis combination prednisolone/moxifloxacin/nepafenac solution. The drapes were removed and a clear plastic protective eye shield was placed over the eye. The patient was then handed and returned to PACU in stable condition.
[2020-01-23 10:06] VITALS: BP 130/100; PULSE 67; RESP 23; TEMP 36.3; O2SAT 93
[2020-01-23 10:11] VITALS: BP 133/87; PULSE 71; RESP 24; TEMP 36.3; O2SAT 93
[2020-01-23 10:16] VITALS: BP 112/86; PULSE 77; RESP 20; TEMP 36.3; O2SAT 93
[2020-01-23 10:53] VITALS: BP 115/59; RESP 18; TEMP 36.5; O2SAT 95
[2020-01-23 11:15] VITALS: BP 116/62; PULSE 68; RESP 18; TEMP 36.4; O2SAT 93
== END 2020-01-23 11:35 | disposition home or self-care (01) ==
PROVIDERS: PCP Family Medicine; Visit Provider Ophthalmology
PROC: (CPT 66984; principal; 2020-01-23 08:30)
DX: H25.11 Age-related nuclear cataract, right eye (principal); Z96.1 Presence of intraocular lens; Z98.42 Cataract extraction status, left eye
CPT/HCPCS: 66984; V2632; J2001; J2704

== ENCOUNTER 2020-04-23 17:51 | Outpatient (REF) | payer MEDICAID, SELFPAY ==
[2020-04-29 11:31] LABS: Codeine Negative ng/mL (Cutoff: 25); Dihydrocodeine 129 ng/mL (Cutoff: 25); Hydrocodone 531 ng/mL (Cutoff: 25); Hydromorphone Negative ng/mL (Cutoff: 25); Morphine Negative ng/mL (Cutoff: 25); Naloxone Negative ng/mL (Cutoff: 25); Norhydrocodone 185 ng/mL (Cutoff: 25); Noroxycodone Negative ng/mL (Cutoff: 25); Noroxymorphone Negative ng/mL (Cutoff: 25); Opiates Interpretation Positive.
== END 2020-04-23 17:52 | disposition home or self-care (01) ==
LOC: NCHCN 17:51
PROVIDERS: PCP Family Medicine; Visit Provider Nurse Practitioner Family
DX: Z51.81 Encounter for therapeutic drug level monitoring (principal); Z79.899 Other long term (current) drug therapy
CPT/HCPCS: 80333; 80361; 80362

== ENCOUNTER 2020-11-26 16:05 | Emergency (ER) | payer MEDICARE, MEDICAID, SELFPAY ==
[2020-11-26 16:11] VITALS: BP 129/89; PULSE 78; RESP 18; TEMP 36.3; O2SAT 99
--- NOTE | 2020-11-26 16:15 | DI.RAD_ITS ---
Exam(s) XR RIBS RT W PA LAT CHEST EXAM: XR RIBS RT W PA LAT CHEST-7 views CLINICAL HISTORY: fall/pain TECHNIQUE: 2D digital imaging was performed. COMPARISON: CR PORTABLE CHEST ONE VIEW from 11/06/[address] ABDOMEN PELVIS W from 07/04/[address] ABDOMEN PELVIS W from 07/04/2019 FINDINGS: There is a subtle nondisplaced fracture lateral aspect of the right 6th rib. No rib lesions. No pneumothorax nor lung contusion. However, there are 2 nodular densities projected over the lower right lung, possibly calcified granulomas or breast nipple or combination there of. No pleural effus ions. No pneumothorax. Heart size is normal and there is no significant mediastinal widening. IMPRESSION: 1. Subtle fracture right 6th rib, nondisplaced. No pneumothorax. No lung contusion. No pleural eff usion. 2. Right lung nodules wrist breast nipple. This could be further study with noninfused CT scan. DATA REPOSITORY: RADIATION DOSE DELIVERED:
--- NOTE | 2020-11-26 16:21 | ED.GENADUL_ITS ---
Discharge Plan Disposition Patient Disposition: HOME Condition: Stable Discharge Details Clinical Impression: Femur fracture, right, Fracture, rib Primary Care Provider: Sherri Guzman V ED Provider: Domenic Mishra Home Meds and New Rx's Prescriptions: Continued sumatriptan succinate 50 mg tablet See Rx Instructions PO .COMPLEX RF: 0 magnesium oxide 400 mg (241.3 mg magnesium) tablet 400 mg PO DAILY RF: 0 famotidine 20 mg tablet 20 mg PO DAILY RF: 0 bupropion HCl [Wellbutrin SR] 150 MG tablet extended release 12 hr 150 mg PO BID Qty: 30 RF: 0 citalopram 20 MG tablet 20 mg PO QAM Qty: 30 RF: 0 cyclobenzaprine 10 MG tablet 10 mg PO TID PRNRF: 0 sucralfate 1 GM tablet 1 gm PO AC & HS Qty: 120 RF: 0 verapamil 120 mg Tablet Extended Release 120 mg PO DAILY RF: 0 propranolol 160 mg Capsule,Extended Release 24 Hr 160 mg PO DAILY RF: 0 polyethylene glycol 3350 17 gram Powder In Packet 17 g PO DAILY PRNRF: 0 lidocaine 5 % Cream 1 applic TOPICAL QID PRNRF: 0 hydrocodone-acetaminophen 10-325 mg Tablet 1 tab PO BID PRNRF: 0 aspirin 81 mg Tablet,Delayed Release (Dr/Ec) 81 mg PO DAILY RF: 0 triamcinolone acetonide 0.1 % Cream 1 applic TOPICAL BID RF: 0 gabapentin 800 mg Tablet 800 mg PO TID RF: 0 terazosin 1 mg Tablet 2 mg PO HS RF: 0 topiramate 50 mg Tablet 50 mg PO BID RF: 0 zolpidem 12.5 mg Tablet,Ext Release Multiphase 12.5 mg PO QHS PRNRF: 0 diclofenac sodium 1 % Gel 4 g TOPICAL QID RF: 0 Bevespi Aerosphere 9-4.8 mcg Hfa Aerosol Inhaler 2 puff INHALATION BID RF: 0 pantoprazole 40 mg tablet,delayed release (DR/EC) 40 mg PO DAILY RF: 0 albuterol sulfate 90 mcg/actuation Hfa Aerosol Inhaler 2 puff INHALATION PRN PRNRF: 0 albuterol sulfate [ProAir HFA] 90 mcg/actuation Hfa Aerosol Inhaler 2 puff INHALATION DAILY RF: 0 Discharge Instructions Instructions: Leg Fracture (ED), Rib Fracture (ED) Additional Instructions: X-rays reveal that you have both a rib fracture and a femur fracture. Continue taking your pain medication that has been previously prescribed as directed. Cool and/or warm compresses, rest, elevate, advance activity as tolerated. Use incentive spirometer at least 6 times daily. Wear hinged knee brace as directed, I recommend wearing this until you are reevaluated by orthopedics. I personally spoke with Dr. Preston and he is happy to follow you as an outpatient, please contact his office on Sunday. Watch for new or worsening symptoms and return to the ER for any concerns. Referrals: Qamar Preston MD [ [facility] STAFF PHYSICIAN] - Discharge Data Discharge Date/Time-TO BE ENTERED AT DEPARTURE: 11/26/20 18:16 Medical Decision Making 65-year-old gentleman with mechanical fall a couple weeks ago with persistent right-sided chest wall discomfort and right knee pain. He appears well, nontoxic, extremely low suspicion for pneumothorax. I would like to obtain x- ray for potential rib fracture. I would also like to obtain x-ray of his right knee. He does have anterior and medial discomfort worse along the medial aspect. Knee does appear stable, neuro, vascular, tendon intact X-ray of chest is suspicious for nondisplaced right 6 lateral rib fracture. Clinically this would make sense. I will provide the patient with incentive spirometer, he already takes hydrocodone for discomfort. X-ray of knee reveals an age indeterminate medial femoral fracture. Clinically this is where his swelling and discomfort is, likely acute from his most recent fall I discussed the case with Dr. Preston who was able to review the x-ray of his knee. Recommends a knee hinged brace and he will be happy to follow the patient as an outpatient. Hinged brace applied, patient was able to tolerate ambulating steadily. Patient has no additional questions or concerns and is comfortable discharge. Encouraged to return to the ER for new or worsening symptoms, otherwise will reach out to the office of Dr. Preston on Sunday to discuss outpatient reevaluation. Standard discharge and return precautions provided This documentation was generated using [employer] system, please disregard any oddities of phrase or misspellings. Medical Records Medical records reviewed: Yes I reviewed the patient's medical records. Imaging Data Radiologic Study: Attestation: I personally reviewed and interpreted this imaging study as follows: Imaging: X-Ray Radiologist's impression: PROCEDURE INFORMATION: Exam: XR Right Ribs Exam date and time: 11/26/2020 4:27 PM Age: 65 years old Clinical indication: Other: Fall pain right ribs TECHNIQUE: Imaging protocol: XR Right ribs. Views: 2 views. COMPARISON: CR PORTABLE CHEST ONE VIEW 11/06/2014 2:34 PM FINDINGS: Bones/joints: Suspect nondisplaced right 6th lateral rib fracture Soft tissues: Unremarkable IMPRESSION: Suspect nondisplaced right 6th lateral rib fracture PROCEDURE INFORMATION: Exam: XR Chest Exam date and time: 11/26/2020 4:27 PM Age: 65 years old Clinical indication: Other: Fall pain right ribs TECHNIQUE: Imaging protocol: XR of the chest. Views: 2 views. JAZLYNJENNIFER Preliminary Radiology Report GENERAL MILLING SUPERINTENDENT (QA) DISCREPANCY? If there is a discrepancy between the preliminary and final interpretation, please notify [facility] via [email or web address]. If you do not have access to our QA portal, call our QA team at [phone] CONFIDENTIALITY STATEMENT This report is intended only for the use of the referring physician, and only in accordance with law, If you received this in error, call [phone] Page 2 of 2 COMPARISON: CR PORTABLE CHEST ONE VIEW 11/06/2014 2:34 PM FINDINGS: Lungs: 2 small pulmonary nodules over the right base. The larger measures 13 mm. It could be the nipple. CT recommended if the patient is high risk. Pleural spaces: Unremarkable. No pleural effusion. No pneumothorax. Heart/Mediastinum: Unremarkable. No cardiomegaly. Bones/joints: Evidence of nondisplaced age-indeterminate right 6 lateral rib fr acture IMPRESSION: 1. Suspect nondisplaced right 6th lateral rib fracture. 2. Lung nodules. Recommend CT if the patient is high risk. Thank you for allowing us to participate in the care of your patient. Radiologic Study #2: Attestation: I personally reviewed and interpreted this imaging study as follows: Imaging: X-Ray Radiologist's impression: PROCEDURE INFORMATION: Exam: XR Right Knee Exam date and time: 11/26/2020 4:27 PM Age: 65 years old Clinical indication: Other: Fall, right knee pain; Patient HX: Fall right knee pain TECHNIQUE: Imaging protocol: XR Right knee. Views: 3 views. COMPARISON: No relevant prior studies available. FINDINGS: Bones/joints: There is an age indeterminate fracture involving the medial non articulating aspect of the femur. There is also a tiny fragment projecting along the lateral aspect of the medial articulating surface. Soft tissues: Soft tissues notable for a small suprapatellar effusion. IMPRESSION: Age indeterminate medial femoral fracture. Clinical correlation recommended. Thank you for allowing us to participate in the care of your patient. Dictated and Authenticated by: Maximilian Mcgowan MD HPI General Mode of arrival: ambulatory . Date/Time Provider Initiated Documentation: 11/26/20 16:20 . Limitations to Documentation: no limitations . Information obtained by: patient . HPI Narrative: This is a 65-year-old gentleman, past medical history that includes alcohol abuse-withdrawal, arthritis, COPD, depression, hepatitis, hypertension, A. fib, not anticoagulated, presents to the ER reporting mechanical trip and fall couple weeks ago over a rug injuring his right knee and ribs. He states that his ribs are improving but his knee is especially bothersome along the medial aspect. He is able to ambulate without additional assistance. At the time of the injury he denies striking his head or any other injuries. Patient reports that his rib pain is mild to moderate, knee pain is moderate, worse with movement or bearing weight. He denies any headache, fever, shortness of breath abdominal pain, numbness, tingling, weakness. Denies any pain in his hip or ankle. Has not taken any jaeg-elt-mkrvonj medication for his symptoms. Related Data Home Medications Medication Instructions Recorded Confirmed bupropion HCl [Wellbutrin SR] 150 mg PO BID #30 tablet.er 11/23/14 11/26/20 citalopram 20 mg PO QAM #30 tab 11/23/14 11/26/20 cyclobenzaprine 10 mg PO TID PRN 11/06/15 11/26/20 sucralfate 1 gm PO AC & HS #120 tab 11/10/15 11/26/20 albuterol sulfate 2 puff INHALATION PRN PRN 09/24/19 11/26/20 pantoprazole 40 mg PO DAILY 09/24/19 11/26/20 albuterol sulfate [ProAir HFA] 2 puff INHALATION DAILY 11/12/19 11/26/20 famotidine 20 mg tablet 20 mg PO DAILY 12/08/19 11/26/20 magnesium oxide 400 mg (241.3 mg 400 mg PO DAILY 12/08/19 11/26/20 magnesium) tablet sumatriptan succinate 50 mg tablet See Rx Instructions PO .COMPLEX 12/08/19 11/26/20 Bevespi Aerosphere 2 puff INHALATION BID 01/22/20 11/26/20 aspirin 81 mg PO DAILY 01/22/20 11/26/20 diclofenac sodium 4 g TOPICAL QID 01/22/20 11/26/20 gabapentin 800 mg PO TID 01/22/20 11/26/20 hydrocodone-acetaminophen 1 tab PO BID PRN 01/22/20 11/26/20 lidocaine 1 applic TOPICAL QID PRN 01/22/20 11/26/20 polyethylene glycol 3350 17 g PO DAILY PRN 01/22/20 11/26/20 propranolol 160 mg PO DAILY 01/22/20 11/26/20 terazosin 2 mg PO HS 01/22/20 11/26/20 topiramate 50 mg PO BID 01/22/20 11/26/20 triamcinolone acetonide 1 applic TOPICAL BID 01/22/20 11/26/20 verapamil 120 mg PO DAILY 01/22/20 11/26/20 zolpidem 12.5 mg PO QHS PRN 01/22/20 11/26/20 Previous Rx's Medication Instructions Recorded bupropion HCl [Wellbutrin SR] 150 mg PO BID #30 tablet.er 11/23/14 citalopram 20 mg PO QAM #30 tab 11/23/14 sucralfate 1 gm PO AC & HS #120 tab 11/10/15 Allergies Allergy/AdvReac Type Severity Reaction Status Date / Time amlodipine Allergy Unknown Unverified 11/26/20 16:14 trazodone Allergy Unknown Unverified 11/26/20 16:14 diazepam AdvReac Intermediate Agitation Unverified 11/26/20 16:14 clonidine AdvReac Mild Dry mouth Unverified 11/26/20 16:14 lisinopril AdvReac Mild Cough Unverified 11/26/20 16:14 losartan AdvReac Mild Cough Unverified 11/26/20 16:14 tramadol AdvReac Nauseous Unverified 11/26/20 16:14 General Stated Complaint: Orthopedic DAYSI: 3 Review of Systems Constitutional Constitutional: Denies fever(s), Denies headache(s) and Denies weakness ENT Ears, Nose, Mouth, and Throat: Denies headache(s) Cardiovascular Cardiovascular: Reports chest pain (Rib pain) and Denies dyspnea Respiratory Respiratory: Denies dyspnea Gastrointestinal Gastrointestinal: Denies abdominal pain, Denies nausea and Denies vomiting Musculoskeletal Musculoskeletal: Denies back pain, Denies deformity, Reports arthralgias, Denies numbness, Reports stiffness and Denies tingling Integumentary/Breasts Skin/Breast: Denies rash Neurologic Neurologic: Denies headache(s), Denies numbness, Denies tingling and Denies weakness Hematologic/Lymphatic Hematologic/Lymphatic: Denies easy bleeding and Denies easy bruising PFSH Medical History Alcohol withdrawal Arthritis Chest pain Pt. denies having chest pain 11/12/19 COPD (chronic obstructive pulmonary disease) Depression Gastritis and duodenitis Headache Hepatitis C Per H&P: s/p tx. . He had an abc CT earlier this year which showed a normal liver. Hx of fracture of wrist plate in left wrist present. Hypertension Neck fracture Per pt. states he broke his nevk 5-6 years ago. Upper GI bleed Varices of esophagus determined by endoscopy Surgical History History of cataract surgery History of cataract surgery History of hand surgery Social History Smoking/Tobacco Use Status: Current every day Tobacco Type: cigarettes Smoking risk assessment performed?: Yes Alcohol Intake: current Alcohol Intake frequency: holidays/special occasions only Drug use: Never Substance use type: does not use Do you feel safe at home: Yes Do you feel safe in your relationship?: Yes Additional Social history: lives alone Exam Const General: cooperative, healthy appearing, comfortable and no acute distress Orientation: alert, awake and oriented x3 HENMT Head: normal to inspection, normocephalic and atraumatic Eyes General: appearance normal, both eyes and all related structures Conjunctivae: conjunctivae normal Neck Neck: normal visual inspection, trachea midline and supple Chest Chest: normal inspection of the chest, no crepitus and tenderness (Diffuse right anterior lateral, 4 through 8. No ecchymosis or crepitus) Resp Effort & Inspection: normal respiratory effort and able to speak in complete sentences Auscultation: clear to auscultation bilaterally Cardio Rate: regular rate Rhythm: regular rhythm Back/Spine/Pelvis Back: No back tenderness Skin General skin exam: no rashes or lesions noted Neuro General: patient alert, patient awake, moves all extremities and no focal motor deficits Cognition: normal cognition Speech: speech normal Gait: antalgic Motor: muscle tone normal throughout Sensory Exam: no sensory deficits noted Extrem General: full ROM and capillary refill normal Other: Right knee diffuse mild anterior discomfort with swelling, moderate discomfort, ecchymosis, minimal swelling to the medial aspect. Full range of motion. Knee is stable but increased discomfort with varus and valgus stress. Skin is intact. There is no erythema, warmth, signs of septic joint. Hip, calf, ankle, foot unremarkable. Normal capillary refill and dorsalis pedal pulse. Psych Appearance: grossly normal Mental Status: mental status grossly normal Course Vital Signs Vital signs: Vital Signs Temperature 36.3 C L 11/26/20 16:11 Pulse 78 11/26/20 16:11 Respiratory Rate 18 11/26/20 16:11 Blood Pressure 129/89 11/26/20 16:11 Pulse Oximetry 99 11/26/20 16:11 Temperature 36.3 C L 11/26/20 16:11 Temperature Source Skin 11/26/20 16:11 Pulse 78 11/26/20 16:11 Respiratory Rate 18 11/26/20 16:11 Respiratory Effort Non-Labored 11/26/20 16:18 Blood Pressure 129/89 11/26/20 16:11 Blood Pressure Position Sitting 11/26/20 16:11 Pulse Oximetry 99 11/26/20 16:11 Oxygen Delivery Method Room Air 11/26/20 16:11 Oxygen Flow Rate 0 11/26/20 16:11 Pain Level 5 11/26/20 16:19
--- NOTE | 2020-11-26 17:40 | DI.VRAD_ITS ---
PROCEDURE INFORMATION: Exam: XR Right Ribs Exam date and time: 11/26/2020 4:27 PM Age: 65 years old Clinical indication: Other: Fall pain right ribs TECHNIQUE: Imaging protocol: XR Right ribs. Views: 2 views. COMPARISON: CR PORTABLE CHEST ONE VIEW 11/06/2014 2:34 PM FINDINGS: Bones/joints: Suspect nondisplaced right 6th lateral rib fracture Soft tissues: Unremarkable IMPRESSION: Suspect nondisplaced right 6th lateral rib fracture PROCEDURE INFORMATION: Exam: XR Chest Exam date and time: 11/26/2020 4:27 PM Age: 65 years old Clinical indication: Other: Fall pain right ribs TECHNIQUE: Imaging protocol: XR of the chest. Views: 2 views. COMPARISON: CR PORTABLE CHEST ONE VIEW 11/06/2014 2:34 PM FINDINGS: Lungs: 2 small pulmonary nodules over the right base. The larger measures 13 mm. It could be the nipple. CT recommended if the patient is high risk. Pleural spaces: Unremarkable. No pleural effusion. No pneumothorax. Heart/Mediastinum: Unremarkable. No cardiomegaly. Bones/joints: Evidence of nondisplaced age-indeterminate right 6 lateral rib fracture IMPRESSION: 1. Suspect nondisplaced right 6th lateral rib fracture. 2. Lung nodules. Recommend CT if the patient is high risk. Dictated and Authenticated by: Maximilian Mcgowan MD. Ordering:JESUSITA Sheth MD
--- NOTE | 2020-11-26 17:43 | DI.VRAD_ITS ---
PROCEDURE INFORMATION: Exam: XR Right Knee Exam date and time: 11/26/2020 4:27 PM Age: 65 years old Clinical indication: Other: Fall, right knee pain; Patient HX: Fall right knee pain TECHNIQUE: Imaging protocol: XR Right knee. Views: 3 views. COMPARISON: No relevant prior studies available. FINDINGS: Bones/joints: There is an age indeterminate fracture involving the medial non articulating aspect of the femur. There is also a tiny fragment projecting along the lateral aspect of the medial articulating surface. Soft tissues: Soft tissues notable for a small suprapatellar effusion. IMPRESSION: Age indeterminate medial femoral fracture. Clinical correlation recommended. Dictated and Authenticated by: Maximilian Mcgowan MD. Ordering:JESUSITA Sheth MD
== END 2020-11-26 18:16 | disposition home or self-care (01) ==
PROVIDERS: Emergency Provider Physician Assistant; PCP Family Medicine
DX: S72.8X1A Other fracture of right femur, initial encounter for closed fracture (principal); R07.89 Other chest pain; W01.0XXA Fall on same level from slipping, tripping and stumbling without subsequent striking against object, initial encounter
CPT/HCPCS: 29505; 99284; 71046; 71100

== ENCOUNTER → 2020-12-08 10:45 | Outpatient (BNVA) | payer MEDICARE, MEDICAID, SELFPAY | PROVIDERS: PCP Family Medicine; Referring Provider Family Medicine; Visit Provider Physician Assistant | DX: S72.8X1A Other fracture of right femur, initial encounter for closed fracture (principal); W01.0XXA Fall on same level from slipping, tripping and stumbling without subsequent striking against object, initial encounter | CPT/HCPCS: 73562; 99213 ==

== ENCOUNTER 2020-12-08 11:35 | Outpatient (CLI) | payer MEDICARE, MEDICAID, SELFPAY ==
--- NOTE | 2020-12-08 11:00 | DI.RAD_ITS ---
Exam(s) XR KNEE RT 3V AP,LAT,FIDEL EXAM: XR KNEE RT 3V AP,LAT,FIDEL CLINICAL HISTORY: right femur fracture. TECHNIQUE: 2D digital imaging was performed of the right knee. Three views obtained. AP, lateral an d Merchant views were obtained. COMPARISON: CR,XR XR KNEE RT 3V AP,LAT,FIDEL from 11/26/2020 FINDINGS: BONES: There has been no change in alignment of the medial femoral condylar fracture. No bony destru ctive lesion is seen. JOINTS: The knee is normally aligned. Small joint effusion. SOFT TISSUE: Normal. IMPRESSION: Stable medial femoral condylar fracture. DATA REPOSITORY: RADIATION DOSE DELIVERED:
== END 2020-12-08 11:36 | disposition home or self-care (01) ==
LOC: DIORS 11:35
PROVIDERS: PCP Family Medicine; Referring Provider Family Medicine; Visit Provider Physician Assistant
DX: S72.91XA Unspecified fracture of right femur, initial encounter for closed fracture (principal); X58.XXXA Exposure to other specified factors, initial encounter
CPT/HCPCS: 73562

== ENCOUNTER 2021-02-09 18:56 | Inpatient (IN) | payer MEDICARE, MEDICAID, SELFPAY ==
[2021-02-09] VITALS (43 sets, daily range): BP systolic 96–130; BP diastolic 66–99; PULSE 66–102; RESP 4–46; TEMP 36–37.7; O2SAT 86–99
--- NOTE | 2021-02-09 18:45 | RT.EKG_ITS ---
APPROVED REPORT Exam: Resting ECG Reason for Exam: chest pain Patient Location: E HR:87 bpm ECG Measurements Heart Rate 87 AXIS IN [id number] P [id number] QRSd 116 QRS 25 QT 402 T 46 QTc 484 Conclusion Atrial fibrillation...? atrial activity Nonspecific intraventricular conduction delay...QRSd >115mS, not LBBB/RBBB Anteroseptal infarct, age indeterminate...Q >35mS, T neg, V1-V2. Afib. No STEMI. I have reviewed and interpreted ECG and agree with software generated interpretation.
--- NOTE | 2021-02-09 18:51 | ED.GENADUL_ITS ---
Discharge Plan Disposition Patient Disposition: [facility] INPATIENT Condition: Fair Discharge Details Clinical Impression: Acute exacerbation of chronic obstructive pulmonary disease (COPD), Pneumonia, Acute respiratory distress Primary Care Provider: Sherri Guzman V ED Provider: Leslie Nathan Home Meds and New Rx's Prescriptions: No Action sumatriptan succinate 50 mg tablet See Rx Instructions PO .COMPLEX RF: 0 magnesium oxide 400 mg (241.3 mg magnesium) tablet 400 mg PO DAILY RF: 0 famotidine 20 mg tablet 20 mg PO DAILY RF: 0 bupropion HCl [Wellbutrin SR] 150 MG tablet extended release 12 hr 150 mg PO BID Qty: 30 RF: 0 citalopram 20 MG tablet 20 mg PO QAM Qty: 30 RF: 0 cyclobenzaprine 10 MG tablet 10 mg PO TID PRNRF: 0 sucralfate 1 GM tablet 1 gm PO AC & HS Qty: 120 RF: 0 verapamil 120 mg Tablet Extended Release 120 mg PO DAILY RF: 0 propranolol 160 mg Capsule,Extended Release 24 Hr 160 mg PO DAILY RF: 0 polyethylene glycol 3350 17 gram Powder In Packet 17 g PO DAILY PRNRF: 0 lidocaine 5 % Cream 1 applic TOPICAL QID PRNRF: 0 hydrocodone-acetaminophen 10-325 mg Tablet 1 tab PO BID PRNRF: 0 aspirin 81 mg Tablet,Delayed Release (Dr/Ec) 81 mg PO DAILY RF: 0 triamcinolone acetonide 0.1 % Cream 1 applic TOPICAL BID RF: 0 gabapentin 800 mg Tablet 800 mg PO TID RF: 0 terazosin 1 mg Tablet 2 mg PO HS RF: 0 topiramate 50 mg Tablet 50 mg PO BID RF: 0 zolpidem 12.5 mg Tablet,Ext Release Multiphase 12.5 mg PO QHS PRNRF: 0 diclofenac sodium 1 % Gel 4 g TOPICAL QID RF: 0 Bevespi Aerosphere 9-4.8 mcg Hfa Aerosol Inhaler 2 puff INHALATION BID RF: 0 pantoprazole 40 mg tablet,delayed release (DR/EC) 40 mg PO DAILY RF: 0 albuterol sulfate 90 mcg/actuation Hfa Aerosol Inhaler 2 puff INHALATION PRN PRNRF: 0 albuterol sulfate [ProAir HFA] 90 mcg/actuation Hfa Aerosol Inhaler 2 puff INHALATION DAILY RF: 0 Medical Decision Making 1920 -- 65yo M who is unvaccinated for Covid, smoker, h/o COPD, hepatitis C and alcohol abuse presents for chest pain and shortness of breath from home. EMS reported O2 sat of 70% on room air, increased to 91% after 2 nebs. Patient appears in respiratory distress, sitting forward with labored breathing. Respiratory rate 28. Oxygen saturation 94% on nonrebreather on arrival. Temp 99.9 temporal. He has wheezing, rhonchi and crackles throughout. No lower extremity edema. Differential diagnosis includes acute COPD exacerbation, acute CHF, coronavirus, pneumonia. Will place an IV, bolus IV fluids, screening labs, ABG, lactate and blood cultures, duo nebs, IV steroids, IV morphine, portable chest x-ray and Covid swab. 1944 --patient appears much more comfortable on BiPAP. O2 sat after DuoNeb 94% Labs and imaging reviewed. White blood cell count 15. Hemoglobin 16. ABG notes a pH of 7.25. PCO2 49. PO2 78. Lactate 2.1. Sodium 130. Creatinine 1.4. Troponin negative. BNP 1131. Covid negative. Chest x-ray no evidence of pneumothorax or effusions. Questionable right middle lobe infiltrate. 2014 --Case discussed with hospitalist who accepts patient for admission. 2039 --patient reassessed and he appears much more comfortable on BiPAP, oxygen saturation 88%. He has diffuse wheezing throughout. Will give another neb. 2109 --O2 sat 98% while receiving neb and he appears more comfortable. BP 98/50. Will give addiitonal IVF. 2129 --V rad called to states there is a possible right retrocardiac and perihilar opacity which could represent atelectasis or infection. With leukoc ytosis and low-grade temp, will treat for possible pneumonia. A dose of IV Rocephin and doxycycline ordered. Virtual radiologist also notes possible pulmonary lesion and mediastinal winding which may be due to positioning recommend CTA chest for further evaluation. 2199 --oxygen saturation 87%. He still has minimal work of breathing. Will give a continuous neb. His CPAP mask needed to be readjusted and not secure due to facial hair, nursing will shave hair. BiPAP settings adjusted to discussion with respiratory therapy over the phone who are not in-house. FiO2 increased. Oxygen saturation 91%. Hospitalist informed of pending CT chest. 2229 --patient unable to tolerate laying flat for CT. He was taken off the BiPAP and placed on a nonrebreather and desatted to mid 80s. Patient brought back to the ED. We will give a dose of morphine and attempt to lay flat with BiPAP in the ED and if tolerates, will reattempt CT. Dr. Slaughter hospitalist informed that waiting on CTA until patient is more stable to lay flat. History and presentation appears likely consistent with COPD and pneumonia at this time and not PE or dissection. Medical Records Medical records reviewed: Yes I reviewed the patient's medical records. Imaging Data Radiologic Study: Radiologist's impression: Addendum created by Danielle Desir MD on 02/09/2021 9:34:11 PM EST: A CTA is being ordered. Correlation with those findings suggested. Initial report created on 02/09/2021 9:33:47 PM EST: XR Chest Exam date and time: 02/09/2021 8:02 PM Age: 65 years old Clinical indication: Other: SOB, ? pna TECHNIQUE: Imaging protocol: XR of the chest. Views: 1 view. COMPARISON: CR XR RIBS RT W PA LAT CHEST 11/26/2020 4:43 PM FINDINGS: Limitations: Portions of the pulmonary parenchyma are obscured secondary to overlying medical equipment. Lungs: There are right retrocardiac and right perihilar opacities that could represent atelectasis or infection. There is a somewhat rounded, indeterminate right perispinal density measuring 3.8 x 2.2 cm. A probable calcified granuloma is noted in the right lower lung. Pleural spaces: No pneumothorax. Heart/Mediastinum: There is mediastinal widening which was present on prior examination. However, there appears to be more protrusion on the right. Differences in patient positioning may be contributing. Bones/joints: Skeletal degenerative change. IMPRESSION: 1. Right retrocardiac and right perihilar opacities that could represent atelectasis or infection. 2. Somewhat rounded, indeterminate, right paraspinal density. Pulmonary lesion is not excluded. 3. There is mediastinal widening which was present on prior examination. However, there appears to be more protrusion on the right. Differences in patient positioning may be contributing. However, acute mediastinal or vascular abnormality is not excluded. 4. Other findings/details as above. For the above findings, a dedicated CTA is suggested. Lab Data Lab results reviewed: Yes I reviewed the patient's lab results. Labs: 02/09/21 19:55 Blood Blood Culture - Pending 02/09/21 19:33 Blood Blood Culture - Pending Laboratory Tests Range/Units 02/09/21 02/09/21 02/09/21 19:10 19:10 19:15 WBC (4.4-10.8) 10^3/uL 15.87 H RBC (4.36-5.78) 10^6/uL 5.04 Hgb (13.5-17.5) g/dL 16.3 Hct (40.0-50.0) % 49.2 MCV (80-95) fL 97.6 H MCH (27.0-33.0) pg 32.3 MCHC (32.0-36.0) % 33.1 RDW (11.8-14.1) % 11.9 Plt Count (130-400) 10^3/uL 264 MPV (8.0-11.0) fL 10.5 Immature Gran % 0.7 Neutrophils % 86.4 Lymphocytes % 4.8 Monocytes % 7.0 Eosinophils % 0.6 Basophils % 0.5 Nucleated RBC % % 0 Absolute Neutrophils (1.2-6.7) 10^3/uL 13.71 H Absolute Lymphocytes (1.2-3.4) 10^3/uL 0.76 L Absolute Monocytes (0.1-0.8) 10^3/uL 1.11 H Absolute Eosinophils (0.0-0.7) 10^3/uL 0.10 Absolute Basophils (0.0-0.2) 10^3/uL 0.08 ABG Sample Site ABG pH (7.35-7.45) ABG pCO2 (35-45) mmHg ABG pO2 (80-105) mmHg ABG HCO3 (22-26) mmol/L ABG Total CO2 (23-27) mmol/L ABG O2 Saturation (95-98) % ABG Base Excess (-2-3) mmol/L VBG Lactate (0.6-1.4) mmol/L Sodium (136-145) mmol/L 130 L Potassium (3.5-5.1) mmol/L 4.1 Chloride (98-107) mmol/L 95 L Carbon Dioxide (21.0-32.0) mmol/L 27.6 Anion Gap (3-11) mmol/L 7.4 BUN (7-18) mg/dL 13 Creatinine (0.70-1.30) mg/dL 1.4 H Estimated GFR/1.73 m2 (mL/min/1.73m2) 50.86 Glucose (74-106) mg/dL 110 H Calcium (8.5-10.1) mg/dL 8.8 Magnesium (1.8-2.4) mg/dL 1.9 Total Bilirubin (0.2-1.0) mg/dL 0.6 AST (15-37) U/L 30 ALT (16-63) U/L 29 Alkaline Phosphatase (46-116) U/L 159 H Troponin I (<0.06) ng/mL < 0.05 NT-Pro-B Natriuret Pep (<300) pg/mL Total Protein (6.4-8.2) g/dL 8.6 H Albumin (3.4-5.0) g/dL 3.6 COVID-19 Source Nasal/Nares SARS-CoV-2 (PCR) (Negative) Negative Range/Units 02/09/21 02/09/21 02/09/21 19:26 19:55 19:55 WBC (4.4-10.8) 10^3/uL RBC (4.36-5.78) 10^6/uL Hgb (13.5-17.5) g/dL Hct (40.0-50.0) % MCV (80-95) fL MCH (27.0-33.0) pg MCHC (32.0-36.0) % RDW (11.8-14.1) % Plt Count (130-400) 10^3/uL MPV (8.0-11.0) fL Immature Gran % Neutrophils % Lymphocytes % Monocytes % Eosinophils % Basophils % Nucleated RBC % % Absolute Neutrophils (1.2-6.7) 10^3/uL Absolute Lymphocytes (1.2-3.4) 10^3/uL Absolute Monocytes (0.1-0.8) 10^3/uL Absolute Eosinophils (0.0-0.7) 10^3/uL Absolute Basophils (0.0-0.2) 10^3/uL ABG Sample Site Right Radial ABG pH (7.35-7.45) 7.25 L ABG pCO2 (35-45) mmHg 49 H ABG pO2 (80-105) mmHg 78 L ABG HCO3 (22-26) mmol/L 22 ABG Total CO2 (23-27) mmol/L 19 L ABG O2 Saturation (95-98) % 93 L ABG Base Excess (-2-3) mmol/L -6 L VBG Lactate (0.6-1.4) mmol/L 2.1 H Sodium (136-145) mmol/L Potassium (3.5-5.1) mmol/L Chloride (98-107) mmol/L Carbon Dioxide (21.0-32.0) mmol/L Anion Gap (3-11) mmol/L BUN (7-18) mg/dL Creatinine (0.70-1.30) mg/dL Estimated GFR/1.73 m2 (mL/min/1.73m2) Glucose (74-106) mg/dL Calcium (8.5-10.1) mg/dL Magnesium (1.8-2.4) mg/dL Total Bilirubin (0.2-1.0) mg/dL AST (15-37) U/L ALT (16-63) U/L Alkaline Phosphatase (46-116) U/L Troponin I (<0.06) ng/mL NT-Pro-B Natriuret Pep (<300) pg/mL 1131 H Total Protein (6.4-8.2) g/dL Albumin (3.4-5.0) g/dL COVID-19 Source SARS-CoV-2 (PCR) (Negative) ECG Data Attestation: I personally reviewed and interpreted this ECG (s) as follows: Interpretation: rate of 87, afib, no stemi. HPI General Mode of arrival: ambulatory . Date/Time Provider Initiated Documentation: 02/09/21 18:57 . Limitations to Documentation: no limitations . Information obtained by: patient . HPI Narrative: Pt is a 65-year-old male unvaccinated for Covid who is a chronic tobacco smoker, with a history of COPD, hepatitis C, hypertension, alcohol abuse presents for chest pain and shortness of breath from home. EMS reports that his girlfriend called for a complaint of chest pain or shortness of breath. Oxygen saturation 70% on room air on their arrival which increased to 91% after 2 neb treatments. Patient is unable to provide history due to his current medical condition as he is grunting and did not answer questions. Related Data Home Medications Medication Instructions Recorded Confirmed bupropion HCl [Wellbutrin SR] 150 mg PO BID #30 tablet.er 11/23/14 02/09/21 citalopram 20 mg PO QAM #30 tab 11/23/14 02/09/21 cyclobenzaprine 10 mg PO TID PRN 11/06/15 02/09/21 sucralfate 1 gm PO AC & HS #120 tab 11/10/15 12/08/20 albuterol sulfate 2 puff INHALATION PRN PRN 09/24/19 02/09/21 pantoprazole 40 mg PO DAILY 09/24/19 02/09/21 albuterol sulfate [ProAir HFA] 2 puff INHALATION DAILY 11/12/19 02/09/21 famotidine 20 mg tablet 20 mg PO DAILY 12/08/19 02/09/21 magnesium oxide 400 mg (241.3 mg 400 mg PO DAILY 12/08/19 02/09/21 magnesium) tablet sumatriptan succinate 50 mg tablet See Rx Instructions PO .COMPLEX 12/08/19 12/08/20 Bevespi Aerosphere 2 puff INHALATION BID 01/22/20 12/08/20 aspirin 81 mg PO DAILY 01/22/20 02/09/21 diclofenac sodium 4 g TOPICAL QID 01/22/20 12/08/20 gabapentin 800 mg PO TID 01/22/20 02/09/21 hydrocodone-acetaminophen 1 tab PO BID PRN 01/22/20 02/09/21 lidocaine 1 applic TOPICAL QID PRN 01/22/20 12/08/20 polyethylene glycol 3350 17 g PO DAILY PRN 01/22/20 02/09/21 propranolol 160 mg PO DAILY 01/22/20 02/09/21 terazosin 2 mg PO HS 01/22/20 02/09/21 topiramate 50 mg PO BID 01/22/20 02/09/21 triamcinolone acetonide 1 applic TOPICAL BID 01/22/20 12/08/20 verapamil 120 mg PO DAILY 01/22/20 02/09/21 zolpidem 12.5 mg PO QHS PRN 01/22/20 02/09/21 Previous Rx's Medication Instructions Recorded bupropion HCl [Wellbutrin SR] 150 mg PO BID #30 tablet.er 11/23/14 citalopram 20 mg PO QAM #30 tab 11/23/14 sucralfate 1 gm PO AC & HS #120 tab 11/10/15 Allergies Allergy/AdvReac Type Severity Reaction Status Date / Time amlodipine Allergy Unknown Unverified 12/08/20 10:53 trazodone Allergy Unknown Unverified 12/08/20 10:53 diazepam AdvReac Intermediate Agitation Unverified 12/08/20 10:53 clonidine AdvReac Mild Dry mouth Unverified 12/08/20 10:53 lisinopril AdvReac Mild Cough Unverified 12/08/20 10:53 losartan AdvReac Mild Cough Unverified 12/08/20 10:53 tramadol AdvReac Nauseous Unverified 12/08/20 10:53 General DAYSI: 3 Review of Systems All systems reviewed & are unremarkable except as noted in HPI and below Constitutional Constitutional: Reports as per HPI, Denies chills and Denies fever(s) Eyes Eyes: Denies blurry vision ENT Ears, Nose, Mouth, and Throat: Denies dizziness, Denies sore throat and Denies throat swelling Cardiovascular Cardiovascular: Reports chest pain and Reports dyspnea Respiratory Respiratory: Reports cough and Reports dyspnea Gastrointestinal Gastrointestinal: Denies abdominal pain, Denies diarrhea and Denies vomiting Genitourinary Genitourinary: Denies hematuria and Denies dysuria Musculoskeletal Musculoskeletal: Denies back pain and Denies numbness Integumentary/Breasts Skin/Breast: Denies lesions and Denies rash Neurologic Neurologic: Denies dizziness, Denies localized weakness and Denies numbness Allergic/Immunologic Allergic/Immunologic: Denies throat swelling [facility] Active Problem List (Updated 02/09/21 @ 22:35 by Leslie Nathan DO) Acute exacerbation of chronic obstructive pulmonary disease (Acute) Pneumonia (Acute) Acute respiratory distress (Acute) Femur fracture, right (Acute) Fracture, rib (Acute) A-fib (Chronic) Laceration of digital nerve of left thumb (Acute) Gastritis and duodenitis (Acute) Medical History (Updated 02/09/21 @ 22:35 by Leslie J Bugbee, DO) Alcohol withdrawal Arthritis COPD (chronic obstructive pulmonary disease) Depression Hepatitis C Per H&P: s/p tx. . He had an abc CT earlier this year which showed a normal liver. Hypertension Neck fracture Per pt. states he broke his nevk 5-6 years ago. Upper GI bleed Varices of esophagus determined by endoscopy Surgical History (Updated 02/09/21 @ 19:32 by Leslie Nathan DO) History of cataract surgery History of cataract surgery History of hand surgery History of surgery on wrist Social History Smoking/Tobacco Use Status: Current every day Tobacco Type: cigarettes Smoking risk assessment performed?: Yes Alcohol Intake: current Alcohol Intake frequency: holidays/special occasions only Drug use: Never Substance use type: does not use and unknown Current gender identity: male Do you feel safe at home: Yes Do you feel safe in your relationship?: Yes Additional Social history: lives alone Exam Const General: cooperative, no acute distress and ill appearing chronically Orientation: awake HENMT Head: normal to inspection Face and sinus: normal facial exam Eyes General: appearance normal, both eyes and all related structures Pupils: PERRL EOM: EOM intact bilaterally Neck Neck: normal visual inspection and No submandibular swelling Lymphatic: no lymphadenopathy noted Chest Chest: normal inspection of the chest and no tenderness Resp Effort & Inspection: normal respiratory effort and able to speak in complete sentences Auscultation: crackles bilaterally throughout, rhonchi upper bilaterally and lower bilaterally and wheezes expiratory wheezes and inspiratory wheezes Cardio Rate: regular rate Rhythm: regular rhythm GI Inspection: normal to inspection Palpation: soft, not firm, not rigid and nontender Auscultation: normal bowel sounds Skin General skin exam: no rashes or lesions noted Neuro General: patient alert, patient awake and patient oriented x3 Cognition: normal cognition Speech: speech normal Motor: muscle tone normal throughout Sensory Exam: no sensory deficits noted Extrem General: normal to inspection, full ROM, capillary refill normal, no calf tenderness bilaterally and no edema Psych Appearance: grossly normal Mental Status: mental status grossly normal Speech and Movement: speech and movement normal Affect: normal affect
[2021-02-09 19:19] LABS: Source Nasal/Nares
[2021-02-09 19:24] LABS: Abs Immature Grans 0.11 10^3/uL (0.0-0.06); Absolute Basophil Count 0.08 10^3/uL (0.0-0.2); Absolute Lymphocyte Count 0.76 10^3/uL (1.2-3.4); Absolute Monocyte Count 1.11 10^3/uL (0.1-0.8); Absolute Neutrophil Count 13.71 10^3/uL (1.2-6.7); Basophils % 0.5; Eosinophils % 0.6; HCT 49.2 % (40.0-50.0); HGB 16.3 g/dL (13.5-17.5); Immature Grans % 0.7; Lymphocytes % 4.8; MCH 32.3 pg (27.0-33.0); MCHC 33.1 % (32.0-36.0); MCV 97.6 fL (80-95); MPV 10.5 fL (8.0-11.0); Neutrophils % 86.4; Nucleated RBC 0 %; Platelet Count 264 10^3/uL (130-400); RBC 5.04 10^6/uL (4.36-5.78); RDW 11.9 % (11.8-14.1); RDW-SD 43.2 fL; WBC 15.87 10^3/uL (4.4-10.8)
[2021-02-09 19:29] LABS: BE -6 mmol/L (-2-3); HCO3 22 mmol/L (22-26); pCO2 49 mmHg (35-45); pH 7.25 (7.35-7.45); pO2 78 mmHg (80-105); sO2 93 % (95-98); tCO2 19 mmol/L (23-27)
[2021-02-09 19:33] LABS: Site Right Radial
[2021-02-09] MEDS: methylPREDNISolone SUCC 125 MG VIAL IVP (19:34)
[2021-02-09] MEDS: Albuterol/Ipratropium 3 ML UPD VIAL UPD (19:36)
[2021-02-09] MEDS: Albuterol 2.5 MG/3 ML INH SOLN VIAL 5 MG UPD ×2 (19:36→20:50)
[2021-02-09 19:37] LABS: ALT 29 U/L (16-63); AST 30 U/L (15-37); Albumin 3.6 g/dL (3.4-5.0); Alkaline Phosphatase 159 U/L (46-116); Anion Gap 7.4 mmol/L (3-11); BUN 13 mg/dL (7-18); Bilirubin, Total 0.6 mg/dL (0.2-1.0); CO2 27.6 mmol/L (21.0-32.0); CREATININE 1.4 mg/dL (0.70-1.30); Calcium 8.8 mg/dL (8.5-10.1); Chloride 95 mmol/L (98-107); Estimated GFR 50.86 (mL/min/1.73m2); Glucose 110 mg/dL (74-106); Magnesium 1.9 mg/dL (1.8-2.4); Potassium 4.1 mmol/L (3.5-5.1); Sodium 130 mmol/L (136-145); Total Protein 8.6 g/dL (6.4-8.2)
[2021-02-09 19:38] LABS: Troponin I < 0.05 ng/mL (<0.06)
[2021-02-09] MEDS: Normal Saline 500 ML IV ×2 (19:49→21:10)
[2021-02-09 19:58] LABS: COVID-19 PCR Negative (Negative)
--- NOTE | 2021-02-09 20:00 | DI.RAD_ITS ---
Exam(s) XR PORTABLE CHEST AP EXAM: XR PORTABLE CHEST AP CLINICAL HISTORY: cough, sob, r/o pneumonia. TECHNIQUE: 2D digital imaging was performed. COMPARISON: CR,XR XR RIBS RT W PA LAT CHEST from 11/26/2020 FINDINGS: Somewhat rotated study Chest leads in place. Heart size upper normal. Mediastinum unchanged. There is a lucent density pr ojected over the aortic arch which may be artifact. Left lung is clear. Mild increased markings rig ht infrahilar region. No pleural effusions. Granuloma in the right lung base again noted. IMPRESSION: As above. Recommend non portable PA and lateral views when clinically possible. Alternatively chest CT scan. DATA REPOSITORY: RADIATION DOSE DELIVERED: All CT scans at this facility use at least one of these dose optimization techniques: automated exposure control; mA and/or kV adjustment per patient size (includes targeted e xams where dose is matched to clinical indication); or iterative reconstruction.
[2021-02-09 20:12] LABS: Lactate 2.1 mmol/L (0.6-1.4)
--- NOTE | 2021-02-09 20:13 | NUR.NOTE ---
Nursing Note: Pt medlist updated the best the patient could, pt states I think thats right. Lab in to draw blood, pt medicated as ordered, cont. on bi-pap and radiation monitor, continue to monitor.
--- NOTE | 2021-02-09 20:31 | NUR.NOTE ---
Nursing Note: Portable CXR being done, pt resting after morphine & HHN completed but still has obvious WOB, bi-pap maintained , provider aware, cont. to monitor.
[2021-02-09 20:39] LABS: NT-proBNP 1131 pg/mL (<300)
[2021-02-09] MEDS: LORazepam 2 MG/ML VIAL 1 MG IVP (20:41)
--- NOTE | 2021-02-09 20:54 | NUR.NOTE ---
Nursing Note: Pt medicated w/ativan as ordered, tolerated well, resting on stretcher, cont. to be wheezy t/o, nebulizer admin. as ordered, bi-pap maintained, continue to monitor.
--- NOTE | 2021-02-09 21:34 | DI.VRAD_ITS ---
Addendum created by Danielle Desir MD on 02/09/2021 9:34:11 PM EST: A CTA is being ordered. Correlation with those findings suggested. Initial report created on 02/09/2021 9:33:47 PM EST: PROCEDURE INFORMATION: Exam: XR Chest Exam date and time: 02/09/2021 8:02 PM Age: 65 years old Clinical indication: Other: SOB, ? pna TECHNIQUE: Imaging protocol: XR of the chest. Views: 1 view. COMPARISON: CR XR RIBS RT W PA LAT CHEST 11/26/2020 4:43 PM FINDINGS: Limitations: Portions of the pulmonary parenchyma are obscured secondary to overlying medical equipment. Lungs: There are right retrocardiac and right perihilar opacities that could represent atelectasis or infection. There is a somewhat rounded, indeterminate right perispinal density measuring 3.8 x 2.2 cm. A probable calcified granuloma is noted in the right lower lung. Pleural spaces: No pneumothorax. Heart/Mediastinum: There is mediastinal widening which was present on prior examination. However, there appears to be more protrusion on the right. Differences in patient positioning may be contributing. Bones/joints: Skeletal degenerative change. IMPRESSION: 1. Right retrocardiac and right perihilar opacities that could represent atelectasis or infection. 2. Somewhat rounded, indeterminate, right paraspinal density. Pulmonary lesion is not excluded. 3. There is mediastinal widening which was present on prior examination. However, there appears to be more protrusion on the right. Differences in patient positioning may be contributing. However, acute mediastinal or vascular abnormality is not excluded. 4. Other findings/details as above. For the above findings, a dedicated CTA is suggested. THIS REPORT CONTAINS FINDINGS THAT MAY BE CRITICAL TO PATIENT CARE. The findings were verbally communicated via telephone conference with rupinder cabello at 9:33 PM EST on 02/09/2021. The findings were acknowledged and understood. Dictated and Authenticated by: Danielle Desir MD. Ordering:BETTY Nelson MD
[2021-02-09] MEDS: cefTRIAXone 1 GM/50 ML BAG IVPB (22:06)
--- NOTE | 2021-02-09 22:09 | NUR.NOTE ---
Nursing Note:Bi-pap mask adjusted, FiO2 increased to 40% d/t O2 sats cont. <87% w/positive results, sats 88-92%. IV abx initiated & second IV site to RFA, pt to CT w/RN and non-rebreather @[id number].
[2021-02-09] MEDS: DOXYCYCLINE 100 MG in Normal Saline 100 ML IVPB (22:32)
--- NOTE | 2021-02-09 22:34 | NUR.NOTE ---
Nursing Note: Pt unable to tolerate CT, could not lay down, fought against staff & O2 sat dropped to 84%, return to ER, provider notified.
[2021-02-10] VITALS (36 sets, daily range): BP systolic 101–144; BP diastolic 76–109; PULSE 57–142; RESP 1–27; TEMP 36.1–37; O2SAT 92–96
--- NOTE | 2021-02-10 | DI.US_ITS ---
APPROVED REPORT EXAM: Comprehensive 2D, Doppler, and color-flow Echocardiogram Patient Location: In-Patient Room/Bed: [id number] [employer] Laborer/Designer: Naty Menendez RDCS (AE) Indications: CHF, A Fib Other Information Study Quality: Fair. Technically limited study due to body habitus, inability to position patient. Conclusion Normal left ventricular wall thickness and chamber size. Estimated ejection fraction is 55%. Wall m otion is normal Normal right ventricular size and systolic function Both atria are moderately dilated There are no structural valvular abnormalities Trace to mild mitral regurgitation Mild tricuspid regurgitation Estimated right ventricular systolic pressure is 37 mmHg Compared to the echocardiogram of January 2020, atrial sizes have increased and right ventricular sy stolic pressure has gone from 20 to 37 mmHg Wall motion Left Ventricle The left ventricle is normal size. The left ventricular systolic function is normal. The left ventric ular ejection fraction is within the normal range. There is normal left ventricular wall thickness. T here is normal LV segmental wall motion. There is no ventricular septal defect visualized. LVEF is 55 %. Right Ventricle Right ventricle is grossly normal in size. Right ventricular systolic function is grossly normal. The RVSP is 37.4 mmHg. Atria Left atrium is moderately dilated. Right atrium is moderately dilated. The interatrial septum is inta ct with no evidence for an atrial septal defect. Aortic Valve The aortic valve is normal in structure. Aortic valve is trileaflet. There is no aortic valvular sten osis. No aortic regurgitation is present. Mitral Valve The mitral valve is normal in structure. No evidence of mitral valve stenosis. Trace to mild mitral r egurgitation. Tricuspid Valve The tricuspid valve is normal in structure. There is no tricuspid valve stenosis. Mild tricuspid regu rgitation. . Pulmonic Valve The pulmonary valve is normal in structure. There is no pulmonic valvular stenosis. There is no pulmo christiano valvular regurgitation. Great Vessels The aortic root is normal in size. The ascending aorta is dilated.4.04 cm Aortic arch is not well vis ualized. The IVC collapses <50% with inspiration. Pericardium There is no pericardial effusion. 2D Dimensions IVSD d PLAX 1.05 cm M: 0.6-1.2 LV Vol A2C d MOD 99.9 mL LVPW d PLAX 1.06 cm M: 0.6 - 1.2 LV Vol A4C d MOD 83.9 mL LVID d PLAX 5.09 cm M: 4.2 - 5.8 LA vol/ BSA A4C s A-L 48.1 mL/m2 LVDs 3.55 cm M: 2.5 - 4.0 LA Area A4C s MOD 26.47 cm2 Ao Root d 3.47 cm M: 3.1 - 3.7 LV EF A4C MOD 55.3 % RA Area A4C 16.85 cm2 LV EF A2C MOD 55.2 % RA Vol/ BSA A4C s A-L 20.1 mL/m2 LV EF Biplane MOD 57.4 % Ao Asc Diam d 4.04 cm M: 2.6 - 3.4 SV 55.14 mL LV EF Teichholz 56.9 % SV Index 28.59 mL/m2 LVEF (Farrar's) 57.44 % M: 52 - 72 LV Volume 72.88 mL M: 62 - 150 LV Volume Index 37.76 mL/m2 M: 34 - 74 LV Vol Biplane MOD 96.0 mL FS 29.95 % LV Diastology MV E Vmax 0.69 (0.4-1.3 m/s) Aortic Valve LVOT Area 3.55 cm2 AoV Area Vmax 2.61 cm2 LVOT Vmax 0.66 m/s AoV Area/ BSA (Vmax) 1.35 cm2/m2 LVOT Mean Max. 0.41 m/s BOB Mean Max. 2.09 cm2 LVOT Peak Grad 1.8 mmHg BOB Mean Max. Index 1.08 cm2/m2 LVOT Mean Grad 0.8 mmHg LVOT VTI 0.126 m LVOT Diam s 2.10 cm AoV Vmax 0.90 m/s Velocity Ratio 0.73 AoV Mean Max. 0.70 m/s AoV Peak Grad 3.3 mmHg LVOT SV 44.89 mL AoV Mean Grad 2.1 mmHg AoV VTI 0.165 m AoV Area VTI 2.72 cm2 AoV Area/ BSA (VTI) 1.41 cm/m2 Mitral Valve MV DT 159 (160-240 msec) MV PHT 46 msec MV Area PHT 4.78 cm2 MV VTI 0.144 m MV Area VTI 3.12 (4.0-6.0 cm2) Pulmonary Valve PV Vmax 0.73 (0.5-1.5 m/s) RVOT Peak Gr. 1.02 mmHg PV Peak Grad 2.2 mmHg RVOT Mean Gr. 0.45 mmHg PV Mean Grad 1.6 mmHg RVOT VTI 0.094 m PV VTI 0.161 m RVOT Vmax 0.51 m/s Tricuspid Valve TR Peak Grad 29.4 mmHg TR Vmax 2.71 m/s RA Pressure 8.00 mmHg RVSP (TR) 37.4 mmHg
--- NOTE | 2021-02-10 | DI.CT_ITS ---
Exam(s) CT CHEST PE CTA EXAM: CT CHEST PE CTA CLINICAL HISTORY: acute hypoxic respiratory failure. TECHNIQUE: Imaging Protocol: CT angiography of the chest was performed using pulmonary embolus jaqueline col. Multi planar reconstructions were performed. CONTRAST MATERIAL: Intravenous: Omnipaque 350 Contrast volume: 100 cc COMPARISON: CT CT ABDOMEN PELVIS W from 07/04/2019 FINDINGS: CHEST: PULMONARY ARTERIES: There are no intraluminal filling defects to suggest acute pulmonary emboli. LUNGS: Mild benign-appearing increased markings in the posterior basal segment of the right lower lob e. Also in the lateral basal segment some platelike atelectasis noted right upper lobe. Calcified g ranulomas noted in the right middle lobe. There are no significant focal findings in the left upper lobe.. There is a small nodule in the left lower lobe which measures 4 millimeters. There are no pl eural effusions on either side. No significant focal findings in the trachea and mainstem bronchi MEDIASTINUM: There is no hilar nor mediastinal adenopathy. Visualized thyroid unremarkable. CARDIAC: Mild cardiomegaly. Coronary artery calcification in the LAD noted.No pericardial effusion. Caliber of the thoracic aorta is upper normal. No dissection there is no significant shift of the interventricular septum. PARTIALLY VISUALIZED UPPERMOST ABDOMEN: No adrenal masses. Cholelithiasis noted. OSSEOUS: No significant osseous lesions.. IMPRESSION: 1. No evidence of acute pulmonary emboli. No evidence of pulmonary infarction.No pleural effusions. 2. Mild increased markings in the right lower lobe. Small 4 millimeter left lower lobe nodule. Pleu ral effusions. 3. No intrathoracic adenopathy. RADIATION DOSE DELIVERED: 465.49mGy.cm Total DLP DATA REPOSITORY: All CT scans at this facility are submitted to the National Radiology Data Registry (NRDR) Dose Index Registry (DIR) with the [employer] (ACR). RADIATION OPTIMIZATION: All CT scans at this facility use at least one of these dose optimization te chniques: automated exposure control; mA and/or kV adjustment per patient size (includes targeted exa ms where dose is matched to clinical indication); or iterative reconstruction.
--- NOTE | 2021-02-10 00:01 | W.PM.HP.N ---
Date of service: 02/10/21 Time of Service: 00:02 Assessment and Plan Assessment and plan (1) Acute exacerbation of chronic obstructive pulmonary disease: Status: Acute Assessment and plan: Some improvement with nebs. Now on BiPAP. Given IV solumedrol 125mg in the ED Cont solumedrol 60mg IV Q8H. Schedule Duonebs. PRN albuterol nebs. Cont Bevespi; if not available on formulary, pt can use own or will make a therapeutic substitute. (2) Pneumonia: Status: Acute Assessment and plan: Procal 0.3. WBC count elevated. CXR read as right retocardiac and right perihilar opacities that could represent infection (vs atelectasis). Rocephin and Doxycycline initiated in the ED; Continue. Also noted on CXR was a right paraspinal density; pulmonary lesion not excluded. Also noted was mediastinal widening that has previously been noted but possibly more protrusion on the right. CT would be prudent to further evaluate. (3) Acute respiratory failure with hypoxia: Status: Acute Assessment and plan: COPD exacerbation secondary to PNA likely. Cannot r/o pulmonary embolism. CT chest for pulmonary embolism eval and for the above mentioned findings on CXR was attempted. He could not lie supine d/t his respiratory status. Once less dysnpeic, should re-attempt a CT. (4) A-fib: Status: Chronic Assessment and plan: Rate controlled. Cont Verapamil 120mg daily. Not on AC. Is on ASA 81mg daily. Telemetry. (5) Gastritis and duodenitis: Status: Acute Assessment and plan: On H2 clyde and PPI according to medication list. Pantoprazole 40mg IV daily. Monitor H/H. (6) Hyponatremia: Status: Acute Assessment and plan: Na 130. He was given IV fluids in the ED. Monitor. Possibly SIADH from PNA. History of Present Illness History of Present Illness Chief Complaint: Shortness of breath and chest pain. Narrative: This is a 65 yo male with a PMH of COPD, tobacco abuse disorder, atrial fibrillation, HTN, Hepatitis C, previous alcohol abuse, gastritis/duodenitis. He presented with c/o shortness of breath and chest pain. His girlfriend called EMS. His initial RA O2 saturation per EMS was 70%. 2 neb. treatments given and his saturation improved to 91%. He was unable to give any history d/t his respiratory distress initially. He presented on a non-rebreather with O2 saturation of 94%. He was noted to be wheezing with rhonchi throughout. He was placed on BiPAP. WBC count 15. Hgb 16. ABG: pH 7.25. PCO2 49. PO2 78. Lactate 2.1. Sodium 130. Creatinine 1.4. Troponin negative. BNP 1131. COVID neg. CXR with questionable RML infiltrate; Rocephin and doxycyline initiated in the ED. He was given IV fluids d/t SBP in the 90's. CT chest ordered but he was unable to lie supine for the scan. After a dose of morphine he was still unable to lie supine. Admitted to the ICU for further w/u and treatment. Review of Systems All systems reviewed & are unremarkable except as noted in HPI and below and Unobtainable due to (Pt only nods/shakes heads to answer. SOA with speech. ) [facility] Active Problem List Acute exacerbation of chronic obstructive pulmonary disease (Acute) Pneumonia (Acute) Acute respiratory distress (Acute) Femur fracture, right (Acute) Fracture, rib (Acute) A-fib (Chronic) Laceration of digital nerve of left thumb (Acute) Gastritis and duodenitis (Acute) Medical History Alcohol withdrawal Arthritis COPD (chronic obstructive pulmonary disease) Depression Hepatitis C Per H&P: s/p tx. . He had an abc CT earlier this year which showed a normal liver. Hypertension Neck fracture Per pt. states he broke his nevk 5-6 years ago. Upper GI bleed Varices of esophagus determined by endoscopy Surgical History History of cataract surgery History of cataract surgery History of hand surgery History of surgery on wrist Social History Smoking/Tobacco Use Status: Current every day Tobacco Type: cigarettes Smoking risk assessment performed?: Yes Alcohol Intake: current Alcohol Intake frequency: holidays/special occasions only Drug use: Never Substance use type: does not use and unknown Current gender identity: male Do you feel safe at home: Yes Do you feel safe in your relationship?: Yes Additional Social history: lives alone Meds Allergies and Home Medications Allergies Allergy/AdvReac Type Severity Reaction Status Date / Time amlodipine Allergy Unknown Unverified 12/08/20 10:53 trazodone Allergy Unknown Unverified 12/08/20 10:53 diazepam AdvReac Intermediate Agitation Unverified 12/08/20 10:53 clonidine AdvReac Mild Dry mouth Unverified 12/08/20 10:53 lisinopril AdvReac Mild Cough Unverified 12/08/20 10:53 losartan AdvReac Mild Cough Unverified 12/08/20 10:53 tramadol AdvReac Nauseous Unverified 12/08/20 10:53 Home Medications Medication Instructions Recorded Confirmed Type bupropion HCl [Wellbutrin SR] 150 mg PO BID #30 tablet.er 11/23/14 02/09/21 Rx citalopram 20 mg PO QAM #30 tab 11/23/14 02/09/21 Rx cyclobenzaprine 10 mg PO TID PRN 11/06/15 02/09/21 History sucralfate 1 gm PO AC & HS #120 tab 11/10/15 12/08/20 Rx albuterol sulfate 2 puff INHALATION PRN PRN 09/24/19 02/09/21 History pantoprazole 40 mg PO DAILY 09/24/19 02/09/21 History albuterol sulfate [ProAir HFA] 2 puff INHALATION DAILY 11/12/19 02/09/21 History famotidine 20 mg tablet 20 mg PO DAILY 12/08/19 02/09/21 History magnesium oxide 400 mg (241.3 mg 400 mg PO DAILY 12/08/19 02/09/21 History magnesium) tablet sumatriptan succinate 50 mg tablet See Rx Instructions PO .COMPLEX 12/08/19 12/08/20 History Bevespi Aerosphere 2 puff INHALATION BID 01/22/20 12/08/20 History aspirin 81 mg PO DAILY 01/22/20 02/09/21 History diclofenac sodium 4 g TOPICAL QID 01/22/20 12/08/20 History gabapentin 800 mg PO TID 01/22/20 02/09/21 History hydrocodone-acetaminophen 1 tab PO BID PRN 01/22/20 02/09/21 History lidocaine 1 applic TOPICAL QID PRN 01/22/20 12/08/20 History polyethylene glycol 3350 17 g PO DAILY PRN 01/22/20 02/09/21 History propranolol 160 mg PO DAILY 01/22/20 02/09/21 History terazosin 2 mg PO HS 01/22/20 02/09/21 History topiramate 50 mg PO BID 01/22/20 02/09/21 History triamcinolone acetonide 1 applic TOPICAL BID 01/22/20 12/08/20 History verapamil 120 mg PO DAILY 01/22/20 02/09/21 History zolpidem 12.5 mg PO QHS PRN 01/22/20 02/09/21 History Exam Const General: cooperative and acute distress moderate (Respiratory. ) Nutritional Appearance: average body habitus Orientation: alert HENMT Head: normocephalic and atraumatic Ears: hearing grossly normal bilaterally Neck Neck: full ROM and no JVD Resp Effort & Inspection: not able to speak in complete sentences, no audible wheezes and labored Auscultation: diminished lung sounds and rhonchi Cardio Rate: regular rate Rhythm: abnormal rhythm irregularly irregular GI Palpation: soft and nontender Auscultation: normal bowel sounds Skin General skin exam: no rashes or lesions noted Neuro General: no focal motor deficits Cranial Nerves: facial strength normal Extrem General: no pedal edema and no calf tenderness Results Labs Result diagrams: 02/09/21 19:10 02/09/21 19:10 Labs: Laboratory Results - last 24 hr 02/09/21 02/09/21 02/09/21 19:10 19:10 19:15 WBC 15.87 H RBC 5.04 Hgb 16.3 Hct 49.2 MCV 97.6 H MCH 32.3 MCHC 33.1 RDW 11.9 Plt Count 264 MPV 10.5 Immature Gran % 0.7 Neutrophils % 86.4 Lymphocytes % 4.8 Monocytes % 7.0 Eosinophils % 0.6 Basophils % 0.5 Nucleated RBC % 0 Absolute Neutrophils 13.71 H Absolute Lymphocytes 0.76 L Absolute Monocytes 1.11 H Absolute Eosinophils 0.10 Absolute Basophils 0.08 ABG Sample Site ABG pH ABG pCO2 ABG pO2 ABG HCO3 ABG Total CO2 ABG O2 Saturation ABG Base Excess VBG Lactate Sodium 130 L Potassium 4.1 Chloride 95 L Carbon Dioxide 27.6 Anion Gap 7.4 BUN 13 Creatinine 1.4 H Estimated GFR/1.73 m2 50.86 Glucose 110 H Calcium 8.8 Magnesium 1.9 Total Bilirubin 0.6 AST 30 ALT 29 Alkaline Phosphatase 159 H Troponin I < 0.05 NT-Pro-B Natriuret Pep Total Protein 8.6 H Albumin 3.6 COVID-19 Source Nasal/Nares SARS-CoV-2 (PCR) Negative 02/09/21 02/09/21 02/09/21 19:26 19:55 19:55 WBC RBC Hgb Hct MCV MCH MCHC RDW Plt Count MPV Immature Gran % Neutrophils % Lymphocytes % Monocytes % Eosinophils % Basophils % Nucleated RBC % Absolute Neutrophils Absolute Lymphocytes Absolute Monocytes Absolute Eosinophils Absolute Basophils ABG Sample Site Right Radial ABG pH 7.25 L ABG pCO2 49 H ABG pO2 78 L ABG HCO3 22 ABG Total CO2 19 L ABG O2 Saturation 93 L ABG Base Excess -6 L VBG Lactate 2.1 H Sodium Potassium Chloride Carbon Dioxide Anion Gap BUN Creatinine Estimated GFR/1.73 m2 Glucose Calcium Magnesium Total Bilirubin AST ALT Alkaline Phosphatase Troponin I NT-Pro-B Natriuret Pep 1131 H Total Protein Albumin COVID-19 Source SARS-CoV-2 (PCR) Last Vital Signs Temp 36.6 C 02/09/21 23:23 Pulse 82 02/09/21 23:23 Resp 28 H 02/09/21 23:23 BP 96/66 L 02/09/21 23:23 Pulse Ox 90 L 02/09/21 23:23 PAWSS Have you Been Recently Intoxicated or Drunk Within the Last 30 days?: Yes Have you Ever Experienced Previous Episodes of Alcohol Withdrawal?: No Have you ever Experienced Withdrawal Seizures?: No Have you ever Experienced Delirium Tremens(DT)s?: No Have you ever undergone Alcohol Rehabilitation Treatment (i.e, inpt ot outpatient treatment programs)?: Yes Have you ever Experienced Blackouts?: No Have you ever Combined Alcohol with other Downers within the last 90 days?: Unable to Obtain Have you ever Combined Alcohol with any other Substance of Abuse during the last 90 days?: Unable to Obtain Evidence of Increased Autonomic Activity (i.e. HR>120, tremor, sweating, agitation, nausea)?: No Result: 2
[2021-02-10 00:52] LABS: Troponin I < 0.05 ng/mL (<0.06)
[2021-02-10] MEDS: Enoxaparin 80 MG/0.8 ML SYR SC (01:42)
[2021-02-10] MEDS: Albuterol/Ipratropium 3 ML UPD VIAL UPD ×2 (05:21→17:46)
[2021-02-10 07:28] LABS: Abs Immature Grans 0.04 10^3/uL (0.0-0.06); Absolute Basophil Count 0.02 10^3/uL (0.0-0.2); Absolute Lymphocyte Count 0.44 10^3/uL (1.2-3.4); Absolute Monocyte Count 0.11 10^3/uL (0.1-0.8); Absolute Neutrophil Count 8.15 10^3/uL (1.2-6.7); Basophils % 0.2; HCT 46.7 % (40.0-50.0); HGB 15.3 g/dL (13.5-17.5); Immature Grans % 0.5; MCH 31.9 pg (27.0-33.0); MCHC 32.8 % (32.0-36.0); MCV 97.3 fL (80-95); MPV 10.7 fL (8.0-11.0); Monocytes % 1.3; Nucleated RBC 0 %; Platelet Count 261 10^3/uL (130-400); RDW 11.8 % (11.8-14.1); RDW-SD 42.5 fL; WBC 8.76 10^3/uL (4.4-10.8)
[2021-02-10 07:42] LABS: Anion Gap 9.8 mmol/L (3-11); BUN 14 mg/dL (7-18); CO2 28.2 mmol/L (21.0-32.0); CREATININE 1.2 mg/dL (0.70-1.30); Calcium 9.3 mg/dL (8.5-10.1); Chloride 99 mmol/L (98-107); Glucose 124 mg/dL (74-106); Potassium 4.8 mmol/L (3.5-5.1); Sodium 137 mmol/L (136-145)
[2021-02-10 08:20] LABS: BE (Venous) -3 mmol/L (-2-3); HCO3 (Venous) 23 mmol/L (23-28); O2 Sat (Venous) 75 %; TCO2 (Venous) 21 mmol/L (24-29); pCO2 (Venous) 46 mmHg (41-51); pH (Venous) 7.31 (7.31-7.41); pO2 (Venous) 43 mmHg
[2021-02-10 08:24] LABS: Lactate 3.6 mmol/L (0.6-1.4)
--- NOTE | 2021-02-10 08:39 | PDOC.CMIN ---
- If Service Date Differs Date of service: 02/10/21 Time of Service: 08:39 Care Management Initial Assess REASON FOR HOSPITALIZATION:: Exacerbation of COPD PAST MEDICAL HISTORY/PAST SURGICAL HISTORY:: PFSH. Active Problem List . Acute exacerbation of chronic obstructive pulmonary disease (Acute). Pneumonia (Acute). Acute respiratory distress (Acute). Femur fracture, right (Acute). Fracture, rib (Acute). A-fib (Chronic). Laceration of digital nerve of left thumb (Acute). Gastritis and duodenitis (Acute). Medical History . Alcohol withdrawal. Arthritis. COPD (chronic obstructive pulmonary disease). Depression. Hepatitis C. Per H&P: s/p tx. . He had an abc CT earlier this year which showed a normal liver.. Hypertension. Neck fracture. Per pt. states he broke his nevk 5-6 years ago. Upper GI bleed. Varices of esophagus determined by endoscopy. Surgical History . History of cataract surgery. History of cataract surgery. History of hand surgery. History of surgery on wrist PREVIOUS FUNCTIONAL STATUS/SOCIAL/FAMILY SUPPORTS:: Geovani usually lives alone in an apartment in [place], [place] although sometimes his girlfriend Lidia stays with him. Geovani was disabled about 10 years ago when he broke his back. 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 He is independent with ADLs and uses a cane for ambulation. CURRENT FUNCTIONAL STATUS:: Geovani was sitting up in a chair when met with him. He was pleasant and agreeable to conversation. Geovani shared that he can only walk for short distances due to pain. He does not drive and transportation has been an issue. His girlfriend does not drive either. Geovani is not comfortable using RCT so has had to depend on friends and relatives to transport him. ADVANCE DIRECTIVES:: none on file Has patient been provided with info about the portal/API?: Yes Did the patient sign up for the portal?: No CODE STATUS:: Full Code INSURANCE COVERAGE / FINANCIAL ISSUES:: Medicare. Medicaid CURRENT HOME/COMMUNITY SERVICES/EQUIPMENT:: uses a cane for ambulation PRIMARY CARE PHYSICIAN:: Sherri Guzman POTENTIAL DISCHARGE NEEDS:: Follow up with PCP and plan of care PATIENT/FAMILY EDUCATION NEEDS:: Review of discharge instructions, medications, limitations, activity, follow up plan and discuss Ask me Three TRANSPORTATION:: via private vehicle with friends/family PLAN:: Geovani san be discharged home with no new services. He will follow up with his community providers and transport with family. CM will assess for and support discharge needs.
--- NOTE | 2021-02-10 08:48 | PGE_ITS ---
Date of Service Date of service: 02/10/21 Time of Service: 12:59 Assessment and Plan Assessment and plan (1) Acute respiratory failure with hypoxia and hypercapnia: Status: Resolved Assessment and plan: Multifactorial: due to PNA, acute exacerbation of COPD, acute on chronic diastolic CHF, pleural effusions. Off of BiPAP now and doing well on room air. Will need exercise oxymetry on d/c. Treatment plan otherwise as below. PE ruled out with a CTA today. (2) Acute exacerbation of chronic obstructive pulmonary disease: Status: Acute Assessment and plan: Continue abx. Off O2. Ok to switch steroids to PO. (3) Pneumonia: Status: Acute Assessment and plan: Continue doxycycline/ceftriaxone. WBC better today. Clinically improved as well. (4) Bilateral pleural effusion: Status: Acute Assessment and plan: Suspect this is due to CHF - obtain echo. Suspect rate related CHF. Start diuresis, monitor I/O's and daily weights. (5) Acute on chronic diastolic heart failure: Status: Acute Assessment and plan: As above Obtain echo. Gueroe. (6) A-fib: Status: Chronic Assessment and plan: Rates a little fast, but the patient appears asymptomatic and states that he had more fits when it was tighter controlled. Additionally, the patient got a lot of beta agonists last night and is currently sick. Will not adjust his rate control meds at this time. While his CHADSVASC score is 2, because of his frequent falls and h/o GI bleeding, I do not feel comfortable starting the patient on anticoagulation at this time. (7) Chest discomfort: Status: Chronic Assessment and plan: The patient describes chronic stable angina. He state he has not had a recent stress test. No ACS on this admission, but certainly warrants further ischemic evaluation as outpatient, once pneumonia is treated. Will obtain echo. (8) Falls: Status: Acute Assessment and plan: The patient describes fits - falls that he describes as seizure-like. He states he has not seen a neurologist. I am unable to find neurology consults in the computer. Will set up a referral and, because the patient describes these episodes with frequency, I will not start full anticoagulation on discharge, despite his CHADSVASC score of 2. (9) H/O fracture of femur: Status: Resolved Assessment and plan: PT consulted (10) Pulmonary nodule: Status: Acute Assessment and plan: Will need outpatient follow up. (11) DVT prophylaxis: Status: Acute Assessment and plan: Sc lovenox (transition to prophylactic dose) (12) Discharge planning issues: Status: Acute Assessment and plan: Full code, as per my discussion with the patient in his room, witnessed by his Nurse Mati Subjective Subjective Interval history since last seen: The patient denies dizziness, endorses episodic left sided chest pain with activity which is always relieved with rest (at home and here at the hospital), not reproducible with palpation, denies nausea. Breathing is better. Cough is productive of green sputum. States that he gets what he calls fits - shaking episodes during which he falls down. He states he has never been evaluated by a neurologist. He is open to having this evaluation as an outpatient. He states that his transporation is an issue, but that he has family that would be willing to pick him up. He very much improved with BiPAP overnight and is now on room air after being on 2L of O2 by NC. He endorses episodes of palpiations at home. He states that when his heart rate/BP meds were increased, the frequency of the fits also increased. HR low 110s while straining. Exam Narrative Exam Narrative: General: Pleasant middle-aged male, A&Ox3, sitting comfortably in a chair on RA HEENT: EOMI, MMM Heart: irregularly irregular rhythm, no m/r/g; CP is not reproduced with palpation. Lungs: DIminished at B bases, mild rhonchi throughout B lung mckee on expiration Abdomen: soft, nondistended, nontender Extremities: very trace edema at B ankles Objective Last Vital Signs Temp 36.0 C L 02/09/21 23:44 Pulse 77 02/10/21 06:01 Resp 14 02/10/21 06:01 BP 119/84 02/10/21 06:01 Pulse Ox 95 02/10/21 06:42 Laboratory Results - last 24 hr 02/09/21 02/09/21 02/09/21 19:10 19:10 19:15 WBC 15.87 H RBC 5.04 Hgb 16.3 Hct 49.2 MCV 97.6 H MCH 32.3 MCHC 33.1 RDW 11.9 Plt Count 264 MPV 10.5 Immature Gran % 0.7 Neutrophils % 86.4 Lymphocytes % 4.8 Monocytes % 7.0 Eosinophils % 0.6 Basophils % 0.5 Nucleated RBC % 0 Absolute Neutrophils 13.71 H Absolute Lymphocytes 0.76 L Absolute Monocytes 1.11 H Absolute Eosinophils 0.10 Absolute Basophils 0.08 ABG Sample Site ABG pH ABG pCO2 ABG pO2 ABG HCO3 ABG Total CO2 ABG O2 Saturation ABG Base Excess VBG pH VBG pCO2 VBG pO2 VBG HCO3 VBG Total CO2 VBG O2 Saturation VBG Base Excess VBG Lactate Sodium 130 L Potassium 4.1 Chloride 95 L Carbon Dioxide 27.6 Anion Gap 7.4 BUN 13 Creatinine 1.4 H Estimated GFR/1.73 m2 50.86 Glucose 110 H Calcium 8.8 Magnesium 1.9 Total Bilirubin 0.6 AST 30 ALT 29 Alkaline Phosphatase 159 H Troponin I < 0.05 NT-Pro-B Natriuret Pep Total Protein 8.6 H Albumin 3.6 COVID-19 Source Nasal/Nares SARS-CoV-2 (PCR) Negative 02/09/21 02/09/21 02/09/21 19:26 19:55 19:55 WBC RBC Hgb Hct MCV MCH MCHC RDW Plt Count MPV Immature Gran % Neutrophils % Lymphocytes % Monocytes % Eosinophils % Basophils % Nucleated RBC % Absolute Neutrophils Absolute Lymphocytes Absolute Monocytes Absolute Eosinophils Absolute Basophils ABG Sample Site Right Radial ABG pH 7.25 L ABG pCO2 49 H ABG pO2 78 L ABG HCO3 22 ABG Total CO2 19 L ABG O2 Saturation 93 L ABG Base Excess -6 L VBG pH VBG pCO2 VBG pO2 VBG HCO3 VBG Total CO2 VBG O2 Saturation VBG Base Excess VBG Lactate 2.1 H Sodium Potassium Chloride Carbon Dioxide Anion Gap BUN Creatinine Estimated GFR/1.73 m2 Glucose Calcium Magnesium Total Bilirubin AST ALT Alkaline Phosphatase Troponin I NT-Pro-B Natriuret Pep 1131 H Total Protein Albumin COVID-19 Source SARS-CoV-2 (PCR) 02/10/21 02/10/21 02/10/21 00:25 06:40 06:40 WBC 8.76 D RBC 4.80 Hgb 15.3 Hct 46.7 MCV 97.3 H MCH 31.9 MCHC 32.8 RDW 11.8 Plt Count 261 MPV 10.7 Immature Gran % 0.5 Neutrophils % 93.0 Lymphocytes % 5.0 Monocytes % 1.3 Eosinophils % 0.0 Basophils % 0.2 Nucleated RBC % 0 Absolute Neutrophils 8.15 H Absolute Lymphocytes 0.44 L Absolute Monocytes 0.11 Absolute Eosinophils 0.00 Absolute Basophils 0.02 ABG Sample Site ABG pH ABG pCO2 ABG pO2 ABG HCO3 ABG Total CO2 ABG O2 Saturation ABG Base Excess VBG pH VBG pCO2 VBG pO2 VBG HCO3 VBG Total CO2 VBG O2 Saturation VBG Base Excess VBG Lactate Sodium 137 Potassium 4.8 Chloride 99 Carbon Dioxide 28.2 Anion Gap 9.8 BUN 14 Creatinine 1.2 Estimated GFR/1.73 m2 >= 60.00 Glucose 124 H Calcium 9.3 Magnesium Total Bilirubin AST ALT Alkaline Phosphatase Troponin I < 0.05 NT-Pro-B Natriuret Pep Total Protein Albumin COVID-19 Source SARS-CoV-2 (PCR) 02/10/21 02/10/21 08:10 08:10 WBC RBC Hgb Hct MCV MCH MCHC RDW Plt Count MPV Immature Gran % Neutrophils % Lymphocytes % Monocytes % Eosinophils % Basophils % Nucleated RBC % Absolute Neutrophils Absolute Lymphocytes Absolute Monocytes Absolute Eosinophils Absolute Basophils ABG Sample Site ABG pH ABG pCO2 ABG pO2 ABG HCO3 ABG Total CO2 ABG O2 Saturation ABG Base Excess VBG pH 7.31 VBG pCO2 46 VBG pO2 43 VBG HCO3 23 VBG Total CO2 21 L VBG O2 Saturation 75 VBG Base Excess -3 L VBG Lactate 3.6 H* Sodium Potassium Chloride Carbon Dioxide Anion Gap BUN Creatinine Estimated GFR/1.73 m2 Glucose Calcium Magnesium Total Bilirubin AST ALT Alkaline Phosphatase Troponin I NT-Pro-B Natriuret Pep Total Protein Albumin COVID-19 Source SARS-CoV-2 (PCR) Objective Narrative Objective Narrative: CTA chest: 1. No evidence of acute pulmonary emboli. No evidence of pulmonary in farction.No pleural effusions. 2. Mild increased markings in the right lower lobe. Small 4 millimeter left lower lobe nodule. Pleural effusions. 3. No intrathoracic adenopathy. PAWSS Have you Been Recently Intoxicated or Drunk Within the Last 30 days?: Yes Have you Ever Experienced Previous Episodes of Alcohol Withdrawal?: No Have you ever Experienced Withdrawal Seizures?: No Have you ever Experienced Delirium Tremens(DT)s?: No Have you ever undergone Alcohol Rehabilitation Treatment (i.e, inpt ot outpatient treatment programs)?: Yes Have you ever Experienced Blackouts?: No Have you ever Combined Alcohol with other Downers within the last 90 days?: Unable to Obtain Have you ever Combined Alcohol with any other Substance of Abuse during the last 90 days?: Unable to Obtain Evidence of Increased Autonomic Activity (i.e. HR>120, tremor, sweating, agitation, nausea)?: No Result: 2
[2021-02-10] MEDS: HYDROcodone 10/Acetaminophen 325 TAB PO ×2 (09:05→18:08)
[2021-02-10] MEDS: Gabapentin 600 MG TAB PO ×2 (09:08→20:00)
[2021-02-10] MEDS: Magnesium Oxide 400 MG TAB PO (09:08)
[2021-02-10] MEDS: Topiramate 50 MG TAB PO ×2 (09:08→20:00)
[2021-02-10] MEDS: buPROPion-CR 150 MG TABCR PO ×2 (09:09→20:00)
[2021-02-10] MEDS: Sucralfate 1 GM TAB PO ×3 (09:09→22:05)
[2021-02-10] MEDS: Aspirin E.C. 81 MG TABEC PO (09:09)
[2021-02-10] MEDS: Citalopram 20 MG TAB PO (09:09)
[2021-02-10] MEDS: Pantoprazole 40 MG VIAL IVP (09:10)
[2021-02-10] MEDS: methylPREDNISolone SUCC 125 MG VIAL 60 MG IVP (09:10)
[2021-02-10] MEDS: DOXYCYCLINE 100 MG in Normal Saline 100 ML IVPB ×2 (09:10→20:01)
[2021-02-10] MEDS: Normal Saline Flush 10 ML SYR ×2 (09:22→13:08)
--- NOTE | 2021-02-10 10:31 | PHA.REVIEW ---
Pharmacy Admission Review - Admission Clinical Review (Last Reviewed 02/10/21 @ 00:12 by Chino Slaughter MD) Hyponatremia (Acute) Acute respiratory failure with hypoxia (Acute) Acute exacerbation of chronic obstructive pulmonary disease (Acute) Pneumonia (Acute) Acute respiratory distress (Acute) Gastritis and duodenitis (Acute) amlodipine Allergy (Unknown, Unverified 12/08/20 10:53) trazodone Allergy (Unknown, Unverified 12/08/20 10:53) diazepam Adverse Reaction (Intermediate, Unverified 12/08/20 10:53) Agitation clonidine Adverse Reaction (Mild, Unverified 12/08/20 10:53) Dry mouth lisinopril Adverse Reaction (Mild, Unverified 12/08/20 10:53) Cough losartan Adverse Reaction (Mild, Unverified 12/08/20 10:53) Cough tramadol Adverse Reaction (Unverified 12/08/20 10:53) Nauseous Resuscitation Status Full Code Height 5 ft 10 in Weight 75.3 kg - Renal Dosing Renal Dosing: BUN 14 mg/dL (7-18) 02/10/21 06:40 Creatinine 1.2 mg/dL (0.70-1.30) 02/10/21 06:40 Medications needing adjustments: Reviewed (SCr: 1.2, CrCl~63.00mL/min. All medications dosed appropriately.) - Anticoagulation Anticoagulation: Hgb 15.3 g/dL (13.5-17.5) 02/10/21 06:40 Hct 46.7 % (40.0-50.0) 02/10/21 06:40 Plt Count 261 10^3/uL (130-400) 02/10/21 06:40 Creatinine 1.2 mg/dL (0.70-1.30) 02/10/21 06:40 DVT Prophylaxis: N/A Therapeutic Anticoagulation: Reviewed Medications: Enoxaparin (Enoxaparin 80mg SC Q12H.) - Opiate Usage Evaluate Pain Scale/Pains Meds: Reviewed (Pain scale ratings vary 0-7, Hydrocodone/APAP 10/325mg BID PRN (home med ordered).) Scheduled Bowel Reg ordered if on Opiates?: No (Miralax PRN only.Watch BM) - Relevant Labs Sodium 137 mmol/L (136-145) 12/09/21 06:40 Potassium 4.8 mmol/L (3.5-5.1) 02/10/21 06:40 Chloride 99 mmol/L (98-107) 02/10/21 06:40 Magnesium 1.9 mg/dL (1.8-2.4) 02/09/21 19:10 Electrolytes, C-Reactive P, ESR: Reviewed - DM Control DM Control: Glucose 124 mg/dL (74-106) H 02/10/21 06:40 Insulin Dosing: N/A - Heart Failure/NE Heart Failure/NE: Troponin I < 0.05 ng/mL (<0.06) 02/10/21 00:25 NT-Pro-B Natriuret Pep 1131 pg/mL (<300) H 02/09/21 19:55 EF%, LINDSAY's, B-Blockers, Diuretics: N/A - BP Control BP Control: Blood Pressure [Right Arm] 127/87 Blood Pressure [Right Arm] 101/77 Blood Pressure [Right Arm] 130/83 Blood Pressure 119/84 Blood Pressure 101/77 Blood Pressure 103/84 Blood Pressure 101/76 Blood Pressure 102/84 Blood Pressure 123/90 Blood Pressure 130/83 Blood Pressure 96/66 If elevated: N/A (Blood pressure low to normal this admission.) - Qtc Review If Elevated: Reviewed (QTc 486 on admission. Watch for any QT prolonging medications.) - IV to PO Switch IV Medications: Reviewed - Home Meds Home Med List reviewed: Reviewed Relevent Home Meds Not ordered & why?: Famotidine 20mg BID (replaced by pantoprazole 40mg IVP and Sucralfate 1gm AC&HS), Gabapentin dose decreased to 600mg BID (home med 800mg TID), Zolpidem 10mg HS PRN not ordered. - Current meds Current Medication Order Review: Reviewed - Comments Comments/Follow Ups: Continue to watch sodium, H&H, vitals, labs and for medication changes (avoid any QT prolonging medications). Antibiotic Activity - Pharmacy Antibiotic Review Pharmacy Antibiotic Activity: Reviewed, no change (Doxycycline and Ceftriaxone day 1.)
[2021-02-10] MEDS: Omnipaque 350 MG/ML 100 ML BTL IJ (10:34)
--- NOTE | 2021-02-10 11:04 | PT.INIE ---
Date of service: 02/10/21 Time of Service: 11:04 PT Notes Visit Reasons: Acute Respiratory Distress,Acute COPD Exacerbation Physical Therapy Inpatient Initial Evaluation Date: 02/10/2021 Referring Doctor: Munira Pina MD PT Orders: PT CONSULT: Limited ability Precautions: Fall. Standard. Activity as tolerated. Patient Profile/Admitting Diagnosis: Derrick is a 65-year-old male who presented to the ED on 02/09/2021 due to chest pain and worsening shortness of breath. Patient is diagnosed with COPD exacerbation, pneumonia, acute respiratory failure with hypoxia, gastritis/duodenitis, and hyponatremia. PMHX: Active Problem List Acute exacerbation of chronic obstructive pulmonary disease (Acute) Pneumonia (Acute) Acute respiratory distress (Acute) Femur fracture, right (Acute) Fracture, rib (Acute) A-fib (Chronic) Laceration of digital nerve of left thumb (Acute) Gastritis and duodenitis (Acute) Medical History Alcohol withdrawal Arthritis COPD (chronic obstructive pulmonary disease) Depression Hepatitis C Per H&P: s/p tx. . He had an abc CT earlier this year which showed a normal liver. Hypertension Neck fracture Per pt. states he broke his nevk 5-6 years ago. Upper GI bleed Varices of esophagus determined by endoscopy Surgical History History of cataract surgery History of cataract surgery History of hand surgery History of surgery on wrist Social History/Home Situation: Lives alone in an apartment with 14 steps to enter with a rail on 1 side. Has a significant other who frequently visits him help as needed. Equipment Owned/DME: [facility] Subjective: Geovani states that his girlfriend will be able to come over and provide assistance as needed at home. States that he has a cane that he may be able to use at home. Reports minimal chest pain that he states has gone better compared to yesterday. He says that he has had 3 falls indoors and outdoors in the past 12 months. States that he has a brace that he uses for his right side as he had a recent surgery in his R thigh bone. Objective: General Observation: Seated on chair. Telemetry monitoring in place. Mental Status: Alert and oriented as to person, place, time, and purpose. Able to pay attention, focus, and respond appropriately. Pain: 1-2/10 in chest area that did not increase with activity Vital Signs: Stayed WNL as recorded in the VS telemonitor ROM: Right Upper Extremity: Shoulder Flexion WFL. Shoulder abduction WFL. Elbow flexion WFL. Wrist flexion WFL. Functional opening and closing of hand WFL. Left Upper Extremity: Shoulder Flexion WFL. Shoulder abduction WFL. Elbow flexion WFL. Wrist flexion WFL. Functional opening and closing of hand WFL. Right Lower Extremity: Hip flexion WFL. Hip abduction WFL. Knee flexion WFL. Ankle dorsiflexion WFL. Ankle plantarflexion WFL. Left Lower Extremity: Hip flexion WFL. Hip abduction WFL. Knee flexion WFL. Ankle dorsiflexion WFL. Ankle plantarflexion WFL. Strength: Right Upper Extremity: Shoulder flexors 5/5. Shoulder abductors 5/5. Elbow flexors 5/5. Elbow extensors 5/5. Coat Maker strong. Left Upper Extremity: Shoulder flexors 5/5. Shoulder abductors 5/5. Elbow flexors 5/5. Elbow extensors 5/5. Coat Maker strong. Right Lower Extremity: Hip flexors 4-/5. Hip abductors 4-/5. Knee flexors 4-/5. Knee extensors 3+/5. Ankle dorsiflexors 3+/5. Ankle plantarflexors 4-/5. Left Lower Extremity: Hip flexors 4/5. Hip abductors 4/5. Knee flexors 4/5. Knee extensors 4/5. Ankle dorsiflexors 4/5. Ankle plantarflexors 4/5. Bed Mobility/Transfers: Rolling independent Supine to sit independent Sit to supine independent Sit to stand supervision Stand to sit supervision Bed to reclining chair supervision Gait: Instructed patient with level surface ambulation of 50 feet requiring contact-guard assist. Declined politely the use of front wheeled walker. Vaishali decreased with pain in the right knee and 2?3/10. Gait appeared mildly unstable. Moderate SLB. 2-3/10 pain in chest that subsided with rest. Mild path deviation. Balance: Static Sitting: Normal Dynamic Sitting: Normal Static Standing: Good Dynamic Standing: Fair Special Tests: Mobility Limitations Standardized Measure [facility] AM-PAC 6 clicks Basic Mobility Inpatient Short Form: Raw Score: 21 CMS Score: 29% deficit Informed Consent/Education: Patient was instructed in purpose of PT consult and plan of care. Agreeable to proceed with established PT POC to achieve personal goals. Assessment: Derrick demonstrates functional mobility decline, strength deficit and decreased activity tolerance requiring contact-guard assist for all mobility ADL performance for safety. Patient presents with clinical signs and symptoms consistent with current/admitting diagnoses that have resulted to mobility limitations, gait instability, generalized weakness, and overall ADL decline as demonstrated by the following impairment level findings: 1. Decreased strength to B LE major muscle groups with R>>L 2. Impaired standing balance 3. Impaired activity tolerance 4. Shortness of breath 5. Mild chest pain Impairments are contributing to the following functional limitations: 1. Increased completion time for mobility ADL performance 2. Increased risk for falls 3. Difficulty with managing steps alone safely Patient is assessed as a 55376 moderate complexity based on the following: History: 65-year-old male with past medical history as indicated above Examination: Demonstrable impairment in strength, balance, and mobility level with underlying impairments and functional limitations as exhibited above as well as deficit score of 29% utilizing the [facility] Mobility Inpatient Short Form Presentation: Stable Decision Makin moderate complexity Goals: Goals X1 week 1. Supine-Sit independent 2. Sit-Supine independent 3. Sit-Stand independent 4. Stand-Sit independent with no AD 5. Bed-Chair independent with no AD 6. Chair-Bed independent with no AD 7. Independent gait on level surface with use of no AD for at least 300 feet without report of pain nor dyspnea 8. Independent stair negotiation while holding onto 1 rail for at least 15 steps without report of pain nor dyspnea 9. Independent with home exercise program 10. Good static and dynamic standing balance/tolerance Plan of Care/Treatment Plan: 1-2x/day, 7 days/week x 1 week. Plan of care has been reviewed with the SEWING INSPECTOR providing the service under Physical Therapy direction. Initiate Physical Therapy intervention for pain management as needed, strengthening, bed mobility, transfers, gait, stairs, balance training, and use of assistive device. DISCHARGE RECOMMENDATIONS: [] Home with no services [] [X] Home with services. Home when medically cleared by hospitalist. Will benefit from home health PT services for safety on 14 entrance steps. [] Home with outpatient PT [] [] SNF for continued rehabilitation [] [] Pre Owned Sales Manager Care [] [] SNF versus LTC based on ability to participate and progress [] TREATMENT CODE/TIME: 36671 x 20 minutes, 19542 x 14 minutes beginning at 11:04 AM. Thank you for the opportunity to participate in the care of this patient. Lina Caballero PT, DPT, CLT [facility] [place], [place]
--- NOTE | 2021-02-10 13:00 | RT.EKG_ITS ---
APPROVED REPORT Exam: Resting ECG Reason for Exam: chest pain Patient Location: I HR:87 bpm ECG Measurements Heart Rate 87 AXIS VT [id number] P [id number] QRSd 111 QRS 30 QT 391 T 43 QTc 472 Conclusion Atrial fibrillation...V-rate 63-106, irreg A-activity
[2021-02-10] MEDS: Furosemide 20 MG/2 ML VIAL IVP (13:08)
--- NOTE | 2021-02-10 17:15 | CHAPLAIN ---
Derrick was in bed, getting ready to nap, when I visited him this afternoon. He said the morning had been very busy for him here, and he needed to rest. He has been in touch with family and friends by phone.
[2021-02-10] MEDS: Cyclobenzaprine 10 MG TAB PO (20:00)
[2021-02-10] MEDS: Acetaminophen 325 MG TAB PO (20:01)
[2021-02-10] MEDS: cefTRIAXone 1 GM/50 ML BAG IVPB (20:01)
[2021-02-10] MEDS: Zolpidem 10 MG TAB PO (22:05)
[2021-02-10] MEDS: Terazosin 2 MG CAP PO (22:05)
[2021-02-11] VITALS (11 sets, daily range): BP systolic 101–137; BP diastolic 66–95; PULSE 60–91; RESP 1–20; TEMP 36.4–36.6; O2SAT 92–100
[2021-02-11] MEDS: Albuterol/Ipratropium 3 ML UPD VIAL UPD ×4 (00:16→18:19)
[2021-02-11 07:03] LABS: Abs Immature Grans 0.12 10^3/uL (0.0-0.06); Absolute Eosinophil Count 0.01 10^3/uL (0.0-0.7); Absolute Monocyte Count 0.93 10^3/uL (0.1-0.8); Basophils % 0.1; Eosinophils % 0.1; HCT 42.9 % (40.0-50.0); HGB 14.4 g/dL (13.5-17.5); Immature Grans % 0.8; Lymphocytes % 7.2; MCH 32.5 pg (27.0-33.0); MCHC 33.6 % (32.0-36.0); MCV 96.8 fL (80-95); MPV 10.7 fL (8.0-11.0); Monocytes % 6.3; Neutrophils % 85.5; Nucleated RBC 0 %; Platelet Count 255 10^3/uL (130-400); RBC 4.43 10^6/uL (4.36-5.78); RDW 11.9 % (11.8-14.1); RDW-SD 42.5 fL; WBC 14.77 10^3/uL (4.4-10.8)
[2021-02-11 07:05] LABS: Absolute Basophil Count 0.01 10^3/uL (0.0-0.2); Absolute Lymphocyte Count 1.06 10^3/uL (1.2-3.4); Absolute Neutrophil Count 12.63 10^3/uL (1.2-6.7)
[2021-02-11 07:18] LABS: Anion Gap 6.7 mmol/L (3-11); BUN 19 mg/dL (7-18); CO2 28.3 mmol/L (21.0-32.0); CREATININE 1.2 mg/dL (0.70-1.30); Calcium 9.3 mg/dL (8.5-10.1); Chloride 103 mmol/L (98-107); Glucose 136 mg/dL (74-106); Magnesium 2.1 mg/dL (1.8-2.4); Sodium 138 mmol/L (136-145)
[2021-02-11] MEDS: Furosemide 20 MG/2 ML VIAL IVP ×2 (08:04→15:49)
[2021-02-11] MEDS: DOXYCYCLINE 100 MG in Normal Saline 100 ML IVPB ×2 (08:04→20:49)
[2021-02-11] MEDS: Enoxaparin 40 MG/0.4 ML SYR SC (08:04)
[2021-02-11] MEDS: Citalopram 20 MG TAB PO (08:05)
[2021-02-11] MEDS: predniSONE 20 MG TAB 40 MG PO (08:05)
[2021-02-11] MEDS: buPROPion-CR 150 MG TABCR PO ×2 (08:05→19:49)
[2021-02-11] MEDS: Pantoprazole 40 MG TABCR PO (08:06)
[2021-02-11] MEDS: Topiramate 50 MG TAB PO ×2 (08:06→19:49)
[2021-02-11] MEDS: Sucralfate 1 GM TAB PO ×4 (08:06→22:17)
[2021-02-11] MEDS: Gabapentin 600 MG TAB PO ×2 (08:06→19:49)
[2021-02-11] MEDS: Famotidine 20 MG TAB PO (08:06)
[2021-02-11] MEDS: Aspirin E.C. 81 MG TABEC PO (08:06)
[2021-02-11] MEDS: Magnesium Oxide 400 MG TAB PO (08:07)
--- NOTE | 2021-02-11 14:24 | W.PM.DS.N ---
Date of service: 02/11/21 Time of Service: 14:24 DS: Diagnosis Discharge Diagnosis (1) Acute respiratory failure with hypoxia and hypercapnia: Status: Resolved (2) Acute exacerbation of chronic obstructive pulmonary disease: Status: Acute (3) Pneumonia: Status: Acute (4) Bilateral pleural effusion: Status: Acute (5) Acute on chronic diastolic heart failure: Status: Acute (6) A-fib: Status: Chronic (7) Chest discomfort: Status: Chronic (8) Falls: Status: Acute (9) H/O fracture of femur: Status: Resolved (10) Pulmonary nodule: Status: Acute Discharge Plan Disposition Patient Disposition: HOME Condition: Improving Discharge Details Reason For Visit: Acute Respiratory Distress,Acute COPD Exacerbation Admit Date/Time: 02/09/21 20:38 Admit Provider: Chino Slaughter Attending Provider: Chino Slaughter Primary Care Provider: Sherri Guzman V Home Meds and New Rx's Prescriptions: New nicotine 14 mg/24 hr Patch 24 Hour 14 mg transdermal DAILY PRN PRNQty: 28 RF: 0 prednisone 20 mg Tablet 40 mg PO DAILY Qty: 6 RF: 0 cefpodoxime 200 mg tablet 200 mg PO BID Qty: 6 RF: 0 doxycycline hyclate 100 mg capsule 100 mg PO BID Qty: 6 RF: 0 furosemide 20 mg tablet 20 mg PO DAILY Qty: 3 RF: 0 Continued sumatriptan succinate 50 mg tablet See Rx Instructions PO .COMPLEX RF: 0 magnesium oxide 400 mg (241.3 mg magnesium) tablet 400 mg PO DAILY RF: 0 famotidine 20 mg tablet 20 mg PO DAILY RF: 0 bupropion HCl [Wellbutrin SR] 150 MG tablet extended release 12 hr 150 mg PO BID Qty: 30 RF: 0 citalopram 20 MG tablet 20 mg PO QAM Qty: 30 RF: 0 cyclobenzaprine 10 MG tablet 10 mg PO TID PRNRF: 0 verapamil 120 mg Tablet Extended Release 120 mg PO DAILY RF: 0 propranolol 160 mg Capsule,Extended Release 24 Hr 160 mg PO DAILY RF: 0 polyethylene glycol 3350 17 gram Powder In Packet 17 g PO DAILY PRNRF: 0 hydrocodone-acetaminophen 10-325 mg Tablet 1 tab PO BID PRNRF: 0 aspirin 81 mg Tablet,Delayed Release (Dr/Ec) 81 mg PO DAILY RF: 0 triamcinolone acetonide 0.1 % Cream 1 applic TOPICAL BID RF: 0 gabapentin 800 mg Tablet 800 mg PO TID RF: 0 terazosin 1 mg Tablet 2 mg PO HS RF: 0 topiramate 50 mg Tablet 50 mg PO BID RF: 0 diclofenac sodium 1 % Gel 4 g TOPICAL BID PRNRF: 0 Bevespi Aerosphere 9-4.8 mcg Hfa Aerosol Inhaler 2 puff INHALATION BID RF: 0 zolpidem 10 mg Tablet 10 mg PO HS PRNRF: 0 lidocaine 5 % Ointment 1 applic TOPICAL QID PRNRF: 0 pantoprazole 40 mg tablet,delayed release (DR/EC) 40 mg PO DAILY RF: 0 albuterol sulfate 90 mcg/actuation Hfa Aerosol Inhaler 2 puff INHALATION Q6H PRNRF: 0 Discharge Instructions Instructions: Furosemide (By mouth), Doxycycline (By mouth), Cefpodoxime Proxetil (By mouth), COPD (Chronic Obstructive Pulmonary Disease) (DC), Bacterial Pneumonia (DC), Bacterial Pneumonia (GEN) Additional Instructions: Finish your antibiotics and prednisone as prescribed. Return to the hospital with any fever, bleeding, worsening shortness of breath, or chest pain. Follow up with your PCP in 1-2 weeks. Follow up for your MPI. Follow up with Dr Paul of neurology for your episodes of shaking/falls. Decrease your alcohol intake. Stand Alone Forms: Nursing Discharge Form Referrals: Sherri Guzman MD [Primary Care Provider] - 02/21/21 3:45 pm (Please keep appointment 02/15/21 @ 11:45 also. ) Jeannie Paul MD [ [facility] STAFF PHYSICIAN] - (Please call Sunday to make an appointment. ) Activity:: Activity as Tolerated Equipment/Supplies:: No Equipment Needed Diet:: Low Sodium Discharge Orders Discharge Orders: Discharge Order (Routine); Ordered 02/11/21 Ordered By: Munira Pina Other Ambulatory Orders: NM MPI rest & stress grp (Routine) Timeframe: 2 Weeks Facility: [facility] - Location: DIAGNOSTIC IMAGING Ordered By: Munira Pina Exam Narrative Exam Narrative: General: Pleasant middle-aged male, A&Ox3, sitting comfortably in a chair on RA HEENT: EOMI, MMM Heart: irregularly irregular rhythm, no m/r/g; CP is not reproduced with palpation. Lungs: DIminished at B bases, mild rhonchi throughout B lung mckee on expiration Abdomen: soft, nondistended, nontender Extremities: very trace edema at B ankles DS: Data Vitals/I&O Vitals and I&O: Vital Signs Temperature 36.6 C 02/11/21 09:34 Temperature Source Tympanic 02/11/21 09:34 Pulse 61 02/11/21 09:34 Pulse Rhythm Irregular 02/11/21 09:35 Pulse 97 H 02/10/21 12:17 Respiratory Rate 16 02/11/21 09:34 Respiratory Effort 02/11/21 09:35 Respiratory Depth Normal 02/11/21 09:35 Respiratory Pattern Normal 02/11/21 09:35 Blood Pressure 137/95 H 02/11/21 09:34 Blood Pressure Mean 116 02/10/21 12:17 Blood Pressure Position Supine 02/10/21 12:02 Pulse Oximetry 100 02/11/21 09:34 Oxygen Delivery Method Room Air 02/11/21 11:25 Oxygen Flow Rate 0 02/11/21 11:25 Fraction of Inspired Oxygen (FIO2) 30 02/10/21 05:21 End Tidal Co2 33 02/09/21 19:13 Pain Level 0 02/11/21 09:34 Comment 02/09/21 19:13 Intake & Output 02/10/21 02/11/21 02/11/21 23:59 11:59 23:59 Intake Total 850 / 2150 Output Total 1350 / 3000 625 / 625 Balance -500 / -850 -625 / -625 Weight 75.7 kg Intake: IV 100 / 800 Oral 750 / 1350 Output: Urine 1350 / 3000 625 / 625 Other: Urine Color Yellow Yellow Urine Appearance Clear Clear Urine Odor None Stool Size Large Stool Characteristics Formed Voiding Methods Urinal Urinal Data Completed and Pending Completed studies during hospitalization [Text1]: CXR :As above. Recommend non portable PA and lateral views when clinically possible. Alternatively chest CT scan. CTA chest: 1. No evidence of acute pulmonary emboli. No evidence of pulmonary infarction.No pleural effusions. 2. Mild increased markings in the right lower lobe. Small 4 millimeter left lower lobe nodule. Pleural effusions. 3. No intrathoracic adenopathy. Echo: Normal left ventricular wall thickness and chamber size. Estimated ejection fraction is 55%. Wall motion is normal Normal right ventricular size and systolic function Both atria are moderately dilated There are no structural valvular abnormalities Trace to mild mitral regurgitation Mild tricuspid regurgitation Estimated right ventricular systolic pressure is 37 mmHg Compared to the echocardiogram of January 2020, atrial sizes have increased and right ventricular systolic pressure has gone from 20 to 37 mmHg Labs on day of discharge: Labs from last 24 hours 02/11/21 02/11/21 06:20 06:20 WBC 14.77 H D RBC 4.43 Hgb 14.4 Hct 42.9 MCV 96.8 H MCH 32.5 MCHC 33.6 RDW 11.9 Plt Count 255 MPV 10.7 Immature Gran % 0.8 Neutrophils % 85.5 Lymphocytes % 7.2 Monocytes % 6.3 Eosinophils % 0.1 Basophils % 0.1 Nucleated RBC % 0 Absolute Neutrophils 12.63 H Absolute Lymphocytes 1.06 L Absolute Monocytes 0.93 H Absolute Eosinophils 0.01 Absolute Basophils 0.01 Sodium 138 Potassium 4.0 Chloride 103 Carbon Dioxide 28.3 Anion Gap 6.7 BUN 19 H Creatinine 1.2 Estimated GFR/1.73 m2 >= 60.00 Glucose 136 H Calcium 9.3 Magnesium 2.1 Preliminary micro results at discharge 02/09/21 22:15 Blood Culture - Preliminary Blood NO GROWTH 24 HOURS 02/09/21 19:55 Blood Culture - Preliminary Blood NO GROWTH 24 HOURS PFSH All Active Problems (Updated 02/11/21 @ 14:26 by Munira Pina MD) Chest discomfort (Chronic) Acute on chronic diastolic heart failure (Acute) Bilateral pleural effusion (Acute) Falls (Acute) Discharge planning issues (Acute) DVT prophylaxis (Acute) Pulmonary nodule (Acute) Hyponatremia (Acute) Acute respiratory failure with hypoxia (Acute) Acute exacerbation of chronic obstructive pulmonary disease (Acute) Pneumonia (Acute) Acute respiratory distress (Acute) Femur fracture, right (Acute) Fracture, rib (Acute) A-fib (Chronic) Laceration of digital nerve of left thumb (Acute) Gastritis and duodenitis (Acute) Active Problem List Acute exacerbation of chronic obstructive pulmonary disease (Acute) Pneumonia (Acute) Acute respiratory distress (Acute) Femur fracture, right (Acute) Fracture, rib (Acute) A-fib (Chronic) Laceration of digital nerve of left thumb (Acute) Gastritis and duodenitis (Acute) Medical History Alcohol withdrawal Arthritis COPD (chronic obstructive pulmonary disease) Depression Hepatitis C Per H&P: s/p tx. . He had an abc CT earlier this year which showed a normal liver. Hypertension Neck fracture Per pt. states he broke his nevk 5-6 years ago. Upper GI bleed Varices of esophagus determined by endoscopy Surgical History History of cataract surgery History of cataract surgery History of hand surgery History of surgery on wrist Social History Smoking/Tobacco Use Status: Current every day Tobacco Type: cigarettes Smoking risk assessment performed?: Yes Alcohol Intake: current Alcohol Intake frequency: holidays/special occasions only Drug use: Never Substance use type: does not use and unknown Current gender identity: male Do you feel safe at home: Yes Do you feel safe in your relationship?: Yes Additional Social history: lives alone
--- NOTE | 2021-02-11 14:48 | PDOC.CMDIS ---
- If Service Date Differs Date of service: 02/11/21 Time of Service: 14:48 LACE Index Scoring Tool - Questions: Length of Stay (in days): 2 Acuity (Admit via E.D.?): Yes Comorbidities: Chronic Pulmonary Disease, Liver or Renal Disease E.D. Visits: 2 - Answers: Total Score: 12 Risk of Readmission: High Risk Care Management Discharge Reason for Hospitalization: Exacerbation of COPD Discharge Plan: Geovani san be discharged home with no new services. He will follow up with his community providers and transport with family. Patient/Family Education Needs: Review of discharge instructions, medications, limitations, activity, follow up plan and discuss Ask me Three
--- NOTE | 2021-02-11 15:00 | W.PM.PROGNOT ---
Date of Service Date of service: 02/11/21 Time of Service: 15:00 Assessment and Plan Assessment and plan (1) Acute respiratory failure with hypoxia and hypercapnia: Status: Resolved Assessment and plan: Multifactorial: due to PNA, acute exacerbation of COPD, acute on chronic diastolic CHF, pleural effusions. Doing well on RA. Did not qualify for home O2 by exercise oxymetry today. Treatment plan otherwise as below. PE ruled out with a CTA. (2) Acute exacerbation of chronic obstructive pulmonary disease: Status: Acute Assessment and plan: Continue abx, steroids PO, scheduled and prn nebs. (3) Pneumonia: Status: Acute Assessment and plan: Continue doxycycline/ceftriaxone. Add mucolytics. (4) Bilateral pleural effusion: Status: Acute Assessment and plan: Suspect this is due rate related CHF and pulmonary hypertension. Rates are now controlled. LVEF is 55% on echo. Continue diuresis (give an extra dose of lasix), monitor I/O's and daily weights. (5) Acute on chronic diastolic heart failure: Status: Acute Assessment and plan: As above. (6) A-fib: Status: Chronic Assessment and plan: Rates is better controlled today. Pt states that he had more fits when it was tighter controlled. Will not adjust his rate control meds at this time. While his CHADSVASC score is 2, because of his frequent falls and h/o GI bleeding, I do not feel comfortable starting the patient on anticoagulation at this time. (7) Chest discomfort: Status: Chronic Assessment and plan: The patient describes chronic stable angina. He state he has not had a recent stress test. No ACS on this admission, but certainly warrants further ischemic evaluation as outpatient, once pneumonia is treated. (8) Falls: Status: Acute Assessment and plan: The patient describes fits - falls that he describes as seizure-like. He states he has not seen a neurologist. Neuro referral sent. Because the patient describes these episodes with frequency, I will not start full anticoagulation on discharge, despite his CHADSVASC score of 2. (9) Alcohol abuse: Status: Chronic Assessment and plan: The patient evidently does still drink. Are his fits possibly w/d seizures? Monitor on CIWA. Start Thiamine and MVI. (10) H/O fracture of femur: Status: Resolved Assessment and plan: PT consulted Will need home health PT on d/c (11) Pulmonary nodule: Status: Acute Assessment and plan: Will need outpatient follow up. Subjective Subjective Interval history since last seen: Mr Nolan states that his throat hurts from coughing. Coughing a lot, cough is nonproductive. He thinks he would benefit from staying in the hospital another night. Denies dizziness, chest pain, shortness of breath, nausea. PT recommends home health PT on discharge. Exam Narrative Exam Narrative: General: Pleasant middle-aged male, coughing, A&ox3, on room air, no dyspneic/tachypneic/cyanotic HEENT: EOMI, MMM, no pharyngeal erythema or thrush Heart: irregularly irregular rhythm, no m/r/g Lungs: expiratory rhonchi and R basilar rales Abdomen: soft, nontender, nondistended Extremities: no edema BLE's Objective Last Vital Signs Temp 36.6 C 02/11/21 09:34 Pulse 61 02/11/21 09:34 Resp 16 02/11/21 09:34 BP 137/95 H 02/11/21 09:34 Pulse Ox 100 02/11/21 09:34 Laboratory Results - last 24 hr 02/11/21 02/11/21 06:20 06:20 WBC 14.77 H D RBC 4.43 Hgb 14.4 Hct 42.9 MCV 96.8 H MCH 32.5 MCHC 33.6 RDW 11.9 Plt Count 255 MPV 10.7 Immature Gran % 0.8 Neutrophils % 85.5 Lymphocytes % 7.2 Monocytes % 6.3 Eosinophils % 0.1 Basophils % 0.1 Nucleated RBC % 0 Absolute Neutrophils 12.63 H Absolute Lymphocytes 1.06 L Absolute Monocytes 0.93 H Absolute Eosinophils 0.01 Absolute Basophils 0.01 Sodium 138 Potassium 4.0 Chloride 103 Carbon Dioxide 28.3 Anion Gap 6.7 BUN 19 H Creatinine 1.2 Estimated GFR/1.73 m2 >= 60.00 Glucose 136 H Calcium 9.3 Magnesium 2.1 PAWSS Have you Been Recently Intoxicated or Drunk Within the Last 30 days?: Yes Have you Ever Experienced Previous Episodes of Alcohol Withdrawal?: No Have you ever Experienced Withdrawal Seizures?: No Have you ever Experienced Delirium Tremens(DT)s?: No Have you ever undergone Alcohol Rehabilitation Treatment (i.e, inpt ot outpatient treatment programs)?: Yes Have you ever Experienced Blackouts?: No Have you ever Combined Alcohol with other Downers within the last 90 days?: Unable to Obtain Have you ever Combined Alcohol with any other Substance of Abuse during the last 90 days?: Unable to Obtain Evidence of Increased Autonomic Activity (i.e. HR>120, tremor, sweating, agitation, nausea)?: No Result: 2
[2021-02-11] MEDS: Thiamine 100 MG TAB PO (15:49)
[2021-02-11] MEDS: guaiFENesin 200 MG/10 ML CUP PO (15:49)
--- NOTE | 2021-02-11 16:02 | PTTR_ITS ---
Date of service: 02/11/21 Time of Service: 16:02 PT Notes Visit Reasons: Acute Respiratory Distress,Acute COPD Exacerbation Physical Therapy Inpatient Treatment Note Date: 02/11/2021 Precautions: Fall. Standard. Activity as tolerated. Subjective: Complains of headache at 7/10 but is agreeable to trying out his cane in the hallway. Denies pain in the R knee throughout. Denies dizziness. Complained of dry cough which he says both the nurse and the MD are aware of. Wondered why he has padded sides on his bed which Nurse Tanmay is made aware of. Has been given a knee brace which he has not been using and he states was left at home. Objective: General Observation: Was walking inside room without his cane when this PT came in. Mental Status: Alert and oriented as to person, place, time, and purpose. Able to pay attention, focus, and respond appropriately. Pain: 7/10 headache Bed Mobility/Transfers: Rolling independent Supine to sit independent Sit to supine independent Sit to stand independent Stand to sit independent Bed to reclining chair independent Gait: Instructed patient with level surface ambulation of 250 feet + 100 feet requiring supervision. Minimal shortness of breath. No giving way seen in the R knee. Gait appeared more steady with use of SPC. Stairs: Up and down 12 x 4-inch steps and 8 x 6-inch steps while holding onto one rail with supervision and step over step pattern. Balance: Static Sitting: Normal Dynamic Sitting: Normal Static Standing: Good Dynamic Standing: Fair Assessment: Previously received conservative management for medial femoral condylar fracture since 12/08/2020. Advised by orthopedic surgeon to wear knee brace 8 weeks from 12/08/2020 which ended on 02/02/2021. Has refused OP PT since then but has not been compliant with HEP. Today, patient's activity tolerance is much improved. No pain report received nor instability observed in the R knee/thigh related to most recent medial femoral condylar fracture. May be made independent inside room for all transfers and ambulation task performance, ortiz pervision in the hallway using the single-point cane. DISCHARGE RECOMMENDATIONS: [] Home with no services [] [] Home with services [X] Home with outpatient PT. Home when medically cleared by hospitalist. May benefit from outpatient PT services for continued conservative rehab of the R medial femoral condylar fracture. Has been provided with a cane to minimize loading on fracture site and reduce fall risk. [] SNF for continued rehabilitation [] [] Skilled Nursing Care [] [] SNF versus LTC based on ability to participate and progress [] TREATMENT CODE/TIME: 07197 x 31 minutes beginning at 16:02 PM.
[2021-02-11] MEDS: guaiFENesin 600 MG TABCR PO (19:49)
[2021-02-11] MEDS: Benzonatate 200 MG CAP PO (19:49)
[2021-02-11] MEDS: cefTRIAXone 1 GM/50 ML BAG IVPB (19:49)
[2021-02-11] MEDS: HYDROcodone 10/Acetaminophen 325 TAB PO (22:16)
[2021-02-11] MEDS: Terazosin 2 MG CAP PO (22:17)
[2021-02-12] VITALS (7 sets, daily range): BP systolic 108–149; BP diastolic 80–96; PULSE 69–82; RESP 4–18; TEMP 36–36.5; O2SAT 93–98
[2021-02-12] MEDS: Zolpidem 10 MG TAB PO (03:45)
[2021-02-12 07:46] LABS: Anion Gap 9.3 mmol/L (3-11); BUN 24 mg/dL (7-18); CO2 27.7 mmol/L (21.0-32.0); CREATININE 1.4 mg/dL (0.70-1.30); Calcium 9.2 mg/dL (8.5-10.1); Chloride 101 mmol/L (98-107); Estimated GFR 50.86 (mL/min/1.73m2); Folate 4.5 ng/mL (8.6-20.0); Glucose 102 mg/dL (74-106); Magnesium 1.8 mg/dL (1.8-2.4); Potassium 3.3 mmol/L (3.5-5.1); Sodium 138 mmol/L (136-145); Vitamin B12 656 pg/mL (193-986)
[2021-02-12] MEDS: DOXYCYCLINE 100 MG in Normal Saline 100 ML IVPB (08:11)
[2021-02-12] MEDS: Magnesium Oxide 400 MG TAB PO (08:17)
[2021-02-12] MEDS: Citalopram 20 MG TAB PO (08:17)
[2021-02-12] MEDS: Enoxaparin 40 MG/0.4 ML SYR SC (08:17)
[2021-02-12] MEDS: Pantoprazole 40 MG TABCR PO (08:18)
[2021-02-12] MEDS: Benzonatate 200 MG CAP PO (08:18)
[2021-02-12] MEDS: Gabapentin 600 MG TAB PO (08:18)
[2021-02-12] MEDS: Topiramate 50 MG TAB PO (08:18)
[2021-02-12] MEDS: Famotidine 20 MG TAB PO (08:18)
[2021-02-12] MEDS: guaiFENesin 600 MG TABCR PO (08:18)
[2021-02-12] MEDS: predniSONE 20 MG TAB 40 MG PO (08:18)
[2021-02-12] MEDS: Thiamine 100 MG TAB PO (08:18)
[2021-02-12] MEDS: Furosemide 20 MG TAB PO (08:18)
[2021-02-12] MEDS: Aspirin E.C. 81 MG TABEC PO (08:19)
[2021-02-12] MEDS: HYDROcodone 10/Acetaminophen 325 TAB PO (08:19)
[2021-02-12] MEDS: Multivitamin TAB 1 TAB PO (08:19)
[2021-02-12] MEDS: buPROPion-CR 150 MG TABCR PO (08:19)
[2021-02-12] MEDS: Sucralfate 1 GM TAB PO ×2 (08:19→11:11)
--- NOTE | 2021-02-12 09:18 | NT_ITS ---
PT Notes Visit Reasons: Acute Respiratory Distress,Acute COPD Exacerbation 02/12/2021 Pt does not want to work with me today as he notes he is going home. He also reports to me that he will not be able to attend out patient physical therapy due to ride issues and would prefer PT for a short time. Jennifer Jimenez PTA Clinic location: [facility] [place], [place]
[2021-02-12] MEDS: Normal Saline Flush 10 ML SYR (10:08)
[2021-02-12] MEDS: Albuterol/Ipratropium 3 ML UPD VIAL UPD (11:11)
[2021-02-12] MEDS: Potassium Chloride 20 MEQ TABCR PO (11:11)
--- NOTE | 2021-02-12 11:12 | W.PM.DS.N ---
Date of service: 02/12/21 Time of Service: 11:12 DS: Diagnosis Discharge Diagnosis (1) Acute respiratory failure with hypoxia and hypercapnia: Status: Resolved (2) Acute exacerbation of chronic obstructive pulmonary disease: Status: Acute (3) Pneumonia: Status: Acute (4) Bilateral pleural effusion: Status: Acute (5) Acute on chronic diastolic heart failure: Status: Acute (6) A-fib: Status: Chronic (7) Chest discomfort: Status: Chronic (8) Falls: Status: Acute (9) Alcohol abuse: Status: Chronic (10) H/O fracture of femur: Status: Resolved (11) Pulmonary nodule: Status: Acute Discharge Plan Disposition Patient Disposition: HOME Condition: Improving Discharge Details Reason For Visit: Acute Respiratory Distress,Acute COPD Exacerbation Admit Date/Time: 02/09/21 20:38 Admit Provider: Chino Slaughter Attending Provider: Chino Slaughter Primary Care Provider: Sherri Guzman V Hospital Course Hospital Course: This is a 65 yo male with a PMH of COPD, tobacco abuse disorder, atrial fibrillation, HTN, Hepatitis C, previous alcohol abuse, gastritis/duodenitis. He presented with c/o shortness of breath and chest pain. His girlfriend called EMS. His initial RA O2 saturation per EMS was 70%. 2 neb. treatments given and his saturation improved to 91%. He was unable to give any history d/t his respiratory distress initially. He presented on a non-rebreather with O2 saturation of 94%. He was noted to be wheezing with rhonchi throughout. He was placed on BiPAP. WBC count 15. Hgb 16. ABG: pH 7.25. PCO2 49. PO2 78. Lactate 2.1. Sodium 130. Creatinine 1.4. Troponin negative. BNP 1131. COVID neg. CXR with questionable RML infiltrate; Rocephin and doxycyline initiated in the ED. He was given IV fluids d/t SBP in the 90's. CT chest ordered but he was unable to lie supine for the scan. After a dose of morphine he was still unable to lie supine. Admitted to the ICU for further w/u and treatment. CT performed the following day and was negative for pulmonary emboli. CT chest positive for multifolcal pneumonia. The day after admission he improved significantly and was stable on room air. Walking oximetry was negative for indications for home supplemental O2. Echocardiogram showed a 55% EF. + pulmonary hypertension Lasix given with good diuretic effect. Home on cefpodoxime and doxycycline. He will also d/c on lasix 20mg daily and prednisone burst of 40mg daily. Encouraged ongoing smoking cessation. Johnny jones sent. He has a PCP f/u on 02/15/21. Home Meds and New Rx's Prescriptions: New nicotine 14 mg/24 hr Patch 24 Hour 14 mg transdermal DAILY PRN PRNQty: 28 RF: 0 prednisone 20 mg Tablet 40 mg PO DAILY Qty: 6 RF: 0 cefpodoxime 200 mg tablet 200 mg PO BID Qty: 6 RF: 0 doxycycline hyclate 100 mg capsule 100 mg PO BID Qty: 6 RF: 0 furosemide 20 mg tablet 20 mg PO DAILY Qty: 3 RF: 0 Continued sumatriptan succinate 50 mg tablet See Rx Instructions PO .COMPLEX RF: 0 magnesium oxide 400 mg (241.3 mg magnesium) tablet 400 mg PO DAILY RF: 0 famotidine 20 mg tablet 20 mg PO DAILY RF: 0 bupropion HCl [Wellbutrin SR] 150 MG tablet extended release 12 hr 150 mg PO BID Qty: 30 RF: 0 citalopram 20 MG tablet 20 mg PO QAM Qty: 30 RF: 0 cyclobenzaprine 10 MG tablet 10 mg PO TID PRNRF: 0 verapamil 120 mg Tablet Extended Release 120 mg PO DAILY RF: 0 propranolol 160 mg Capsule,Extended Release 24 Hr 160 mg PO DAILY RF: 0 polyethylene glycol 3350 17 gram Powder In Packet 17 g PO DAILY PRNRF: 0 hydrocodone-acetaminophen 10-325 mg Tablet 1 tab PO BID PRNRF: 0 aspirin 81 mg Tablet,Delayed Release (Dr/Ec) 81 mg PO DAILY RF: 0 triamcinolone acetonide 0.1 % Cream 1 applic TOPICAL BID RF: 0 gabapentin 800 mg Tablet 800 mg PO TID RF: 0 terazosin 1 mg Tablet 2 mg PO HS RF: 0 topiramate 50 mg Tablet 50 mg PO BID RF: 0 diclofenac sodium 1 % Gel 4 g TOPICAL BID PRNRF: 0 Bevespi Aerosphere 9-4.8 mcg Hfa Aerosol Inhaler 2 puff INHALATION BID RF: 0 zolpidem 10 mg Tablet 10 mg PO HS PRNRF: 0 lidocaine 5 % Ointment 1 applic TOPICAL QID PRNRF: 0 pantoprazole 40 mg tablet,delayed release (DR/EC) 40 mg PO DAILY RF: 0 albuterol sulfate 90 mcg/actuation Hfa Aerosol Inhaler 2 puff INHALATION Q6H PRNRF: 0 Discharge Instructions Instructions: Furosemide (By mouth), Doxycycline (By mouth), Cefpodoxime Proxetil (By mouth), COPD (Chronic Obstructive Pulmonary Disease) (DC), Bacterial Pneumonia (DC), Bacterial Pneumonia (GEN) Additional Instructions: Finish your antibiotics and prednisone as prescribed. Return to the hospital with any fever, bleeding, worsening shortness of breath, or chest pain. Follow up with your PCP in 1-2 weeks. Follow up for your MPI. Follow up with Dr Paul of neurology for your episodes of shaking/falls. Decrease your alcohol intake. Stand Alone Forms: Nursing Discharge Form Referrals: Sherri Guzman MD [Primary Care Provider] - 02/21/21 3:45 pm (Please keep appointment 02/15/21 @ 11:45 also. ) Jeannie Paul MD [[facility] STAFF PHYSICIAN] - (Please call Sunday to make an appointment. ) Activity:: Activity as Tolerated Equipment/Supplies:: No Equipment Needed Diet:: Low Sodium Discharge Orders Discharge Orders: Discharge Order (Routine); Ordered 02/12/21 Ordered By: Chino Slaughter Other Ambulatory Orders: NM MPI rest & stress grp (Routine) Timeframe: 2 Weeks Facility: [facility] - Location: DIAGNOSTIC IMAGING Ordered By: Munira Pina Discharge Data Discharge Date/Time-TO BE ENTERED AT DEPARTURE: 02/12/21 12:45 DS: Summary Time Spent with Patient providing and/or coordinating discharge services: Greater than 30 minutes Status at Discharge Functional status at discharge: independent ambulation Overall status at discharge: patient is progressing back to baseline Mental Status: mental status grossly normal Speech and Movement: slowed movement Mood: congruent mood Affect: normal affect Exam Const General: cooperative and no acute distress Nutritional Appearance: average body habitus Orientation: oriented x3 Neck Neck: full ROM and no JVD Resp Effort & Inspection: normal respiratory effort Auscultation: wheezes (Faint; bibasilar) Cardio Rate: regular rate Rhythm: abnormal rhythm irregularly irregular GI Palpation: soft and nontender Skin General skin exam: no rashes or lesions noted Neuro General: no focal motor deficits Cognition: normal cognition Speech: speech normal Extrem General: no pedal edema and no calf tenderness Psych Mental Status: mental status grossly normal Speech and Movement: slowed movement Mood: congruent mood Affect: normal affect DS: Data Vitals/I&O Vitals and I&O: Vital Signs Temperature 36.2 C L 02/12/21 07:21 Temperature Source Tympanic 02/12/21 07:21 Pulse 82 02/12/21 07:21 Pulse Rhythm Irregular 02/12/21 10:27 Pulse 97 H 02/10/21 12:17 Respiratory Rate 18 02/12/21 07:21 Respiratory Effort 02/12/21 10:27 Respiratory Depth Normal 02/12/21 10:27 Respiratory Pattern Normal 02/12/21 10:27 Blood Pressure 138/96 H 02/12/21 07:21 Blood Pressure Mean 116 02/10/21 12:17 Blood Pressure Position Supine 02/10/21 12:02 Pulse Oximetry 95 02/12/21 07:21 Oxygen Delivery Method Room Air 02/12/21 07:21 Oxygen Flow Rate 0 02/12/21 07:21 Fraction of Inspired Oxygen (FIO2) 30 02/10/21 05:21 End Tidal Co2 33 02/09/21 19:13 Pain Level 6 02/12/21 08:19 Comment 02/09/21 19:13 Intake & Output 02/11/21 02/11/21 02/12/21 11:59 23:59 11:59 Intake Total 100 / 680 580 / 680 Output Total 625 / 1725 1100 / 1725 1500 / 1500 Balance -525 / -1045 -520 / -1045 -1500 / -1500 Weight 75.7 kg Intake: IV 100 / 200 100 / 200 Oral 480 / 480 Output: Urine 625 / 1725 1100 / 1725 1500 / 1500 Other: Urine Color Yellow Pale Yellow Yellow Urine Appearance Clear Clear Clear Urine Odor None None Normal Voiding Methods Urinal Urinal Toilet Data Completed and Pending Labs on day of discharge: Labs from last 24 hours 02/12/21 06:30 Sodium 138 Potassium 3.3 L Chloride 101 Carbon Dioxide 27.7 Anion Gap 9.3 BUN 24 H Creatinine 1.4 H Estimated GFR/1.73 m2 50.86 Glucose 102 Calcium 9.2 Magnesium 1.8 Vitamin B12 656 Folate 4.5 L Preliminary micro results at discharge 02/09/21 22:15 Blood Culture - Preliminary Blood NO GROWTH 48 HOURS 02/09/21 19:55 Blood Culture - Preliminary Blood NO GROWTH 48 HOURS PFSH All Active Problems Alcohol abuse (Chronic) Chest discomfort (Chronic) Acute on chronic diastolic heart failure (Acute) Bilateral pleural effusion (Acute) Falls (Acute) Discharge planning issues (Acute) DVT prophylaxis (Acute) Pulmonary nodule (Acute) Hyponatremia (Acute) Acute respiratory failure with hypoxia (Acute) Acute exacerbation of chronic obstructive pulmonary disease (Acute) Pneumonia (Acute) Acute respiratory distress (Acute) Femur fracture, right (Acute) Fracture, rib (Acute) A-fib (Chronic) Laceration of digital nerve of left thumb (Acute) Gastritis and duodenitis (Acute) Medical History Alcohol withdrawal Arthritis COPD (chronic obstructive pulmonary disease) Depression Hepatitis C Per H&P: s/p tx. . He had an abc CT earlier this year which showed a normal liver. Hypertension Neck fracture Per pt. states he broke his nevk 5-6 years ago. Upper GI bleed Varices of esophagus determined by endoscopy Surgical History History of cataract surgery History of cataract surgery History of hand surgery History of surgery on wrist Social History Smoking/Tobacco Use Status: Current every day Tobacco Type: cigarettes Smoking risk assessment performed?: Yes Alcohol Intake: current Alcohol Intake frequency: holidays/special occasions only Drug use: Never Substance use type: does not use and unknown Current gender identity: male Do you feel safe at home: Yes Do you feel safe in your relationship?: Yes Additional Social history: lives alone
--- NOTE | 2021-02-21 12:05 | INDS_ITS ---
Date of service: 02/21/21 PT Notes Visit Reasons: Acute Respiratory Distress,Acute COPD Exacerbation Physical Therapy Inpatient Discharge Summary Date: 02/21/2021 Dates of service: 02/10/2021 through 02/11/2021 This is a clinical summary of care provided for the duration of dates listed above. No charge was made in the completion of this documentation. Referring Doctor: Munira Pina MD PT Orders: PT CONSULT: Limited ability Precautions: Fall. Standard. Activity as tolerated. Patient Profile/Admitting Diagnosis: Derrick is a 65-year-old male who presented to the ED on 02/09/2021 due to chest pain and worsening shortness of breath. Patient is diagnosed with COPD exacerbation, pneumonia, acute respiratory failure with hypoxia, gastritis/duodenitis, and hyponatremia. PMHX: Active Problem List Acute exacerbation of chronic obstructive pulmonary disease (Acute) Pneumonia (Acute) Acute respiratory distress (Acute) Femur fracture, right (Acute) Fracture, rib (Acute) A-fib (Chronic) Laceration of digital nerve of left thumb (Acute) Gastritis and duodenitis (Acute) Medical History Alcohol withdrawal Arthritis COPD (chronic obstructive pulmonary disease) Depression Hepatitis C Per H&P: s/p tx. . He had an abc CT earlier this year which showed a normal liver. Hypertension Neck fracture Per pt. states he broke his nevk 5-6 years ago. Upper GI bleed Varices of esophagus determined by endoscopy Surgical History History of cataract surgery History of cataract surgery History of hand surgery History of surgery on wrist Social History/Home Situation: Lives alone in an apartment with 14 steps to enter with a rail on 1 side. Has a significant other who frequently visits him help as needed. Equipment Owned/DME: [facility] Subjective: NT. See most recent ECCLESIASTICAL WORKER notes. Objective: General Observation: NT. See most recent ECCLESIASTICAL WORKER notes. Mental Status: NT. See most recent ECCLESIASTICAL WORKER notes. Pain: NT. See most recent ECCLESIASTICAL WORKER notes. Vital Signs: NT. See most recent ECCLESIASTICAL WORKER notes. ROM: Right Upper Extremity: Shoulder Flexion WFL. Shoulder abduction WFL. Elbow flexion WFL. Wrist flexion WFL. Functional opening and closing of hand WFL. Left Upper Extremity: Shoulder Flexion WFL. Shoulder abduction WFL. Elbow flexion WFL. Wrist flexion WFL. Functional opening and closing of hand WFL. Right Lower Extremity: Hip flexion WFL. Hip abduction WFL. Knee flexion WFL. Ankle dorsiflexion WFL. Ankle plantarflexion WFL. Left Lower Extremity: Hip flexion WFL. Hip abduction WFL. Knee flexion WFL. Ankle dorsiflexion WFL. Ankle plantarflexion WFL. Strength: Right Upper Extremity: Shoulder flexors 5/5. Shoulder abductors 5/5. Elbow flexors 5/5. Elbow extensors 5/5. Configuration Analyst strong. Left Upper Extremity: Shoulder flexors 5/5. Shoulder abductors 5/5. Elbow flexors 5/5. Elbow extensors 5/5. Configuration Analyst strong. Right Lower Extremity: Hip flexors 4-/5. Hip abductors 4-/5. Knee flexors 4-/5. Knee extensors 3+/5. Ankle dorsiflexors 3+/5. Ankle plantarflexors 4-/5. Left Lower Extremity: Hip flexors 4/5. Hip abductors 4/5. Knee flexors 4/5. Knee extensors 4/5. Ankle dorsiflexors 4/5. Ankle plantarflexors 4/5. Bed Mobility/Transfers: Rolling independent Supine to sit independent Sit to supine independent Sit to stand independent Stand to sit independent Bed to reclining chair independent Gait: Instructed patient with level surface ambulation of 250 feet +100 feet requiring supervision with no report of giving way in the right knee. Denies pain. Did complain of headache. Stairs: Tolerated up-and-down 12 x 4 inch steps in a x6 inch steps of holding onto 1 rail requiring only supervision with step over step gait pattern. Balance: Static Sitting: Normal Dynamic Sitting: Normal Static Standing: Good Dynamic Standing: Fair Assessment: Derrick demonstrates significant functional mobility improvement during this episode of care. Patient presents with clinical signs and symptoms consistent with current/admitting diagnoses that have resulted to mobility limitations, gait instability, generalized weakness, and overall ADL decline as demonstrated by the following impairment level findings: 1. Decreased strength to B LE major muscle groups with R>>L 2. Impaired standing balance 3. Impaired activity tolerance Impairments are contributing to the following functional limitations: 1. Increased completion time for mobility ADL performance 2. Increased risk for falls 3. Difficulty with managing steps alone safely Goals: Goals X1 week 1. Supine-Sit independent MET 2. Sit-Supine independent MET 3. Sit-Stand independent MET 4. Stand-Sit independent with no AD MET 5. Bed-Chair independent with no AD MET 6. Chair-Bed independent with no AD MET 7. Independent gait on level surface with use of no AD for at least 300 feet without report of pain nor dyspnea NOT MET 8. Independent stair negotiation while holding onto 1 rail for at least 15 steps without report of pain nor dyspnea NOT MET 9. Independent with home exercise program NOT MET 10. Good static and dynamic standing balance/tolerance NOT MET DISCHARGE RECOMMENDATIONS: [] Home with no services [] [X] Home with services. Home when medically cleared by hospitalist. Will benefit from home health PT services for safety on 14 entrance steps. [] Home with outpatient PT [] [] SNF for continued rehabilitation [] [] [employer] Professor Care [] [] SNF versus LTC based on ability to participate and progress [] TREATMENT CODE/TIME: CA Thank you for the opportunity to participate in the care of this patient. Lina Caballero PT, DPT, CLT [facility] [place], [place]
== END 2021-02-12 12:45 | disposition home or self-care (01) | DRG 193 ==
LOC: ER 23:12 → ICU 23:14 → MS 02-10 17:24
PROVIDERS: Internal Medicine; Admitting Provider Family Medicine; Emergency Provider Physician Assistant; PCP Family Medicine; Visit Provider Family Medicine
DX: J18.9 Pneumonia, unspecified organism (principal); I50.33 Acute on chronic diastolic (congestive) heart failure; J96.01 Acute respiratory failure with hypoxia; J96.02 Acute respiratory failure with hypercapnia; J44.0 Chronic obstructive pulmonary disease with (acute) lower respiratory infection; J44.1 Chronic obstructive pulmonary disease with (acute) exacerbation; E87.1 Hypo-osmolality and hyponatremia; I85.00 Esophageal varices without bleeding; R91.1 Solitary pulmonary nodule; F17.210 Nicotine dependence, cigarettes, uncomplicated; I11.0 Hypertensive heart disease with heart failure; I48.91 Unspecified atrial fibrillation; B19.20 Unspecified viral hepatitis C without hepatic coma; K29.70 Gastritis, unspecified, without bleeding; K29.80 Duodenitis without bleeding; F32.A Depression, unspecified
CPT/HCPCS: 36415; 71275; 80048; 80053; 82805; 87040; 87635; 93005; 93306; 94618; 94640; 96361; 96365; 96367; 96375; 97162; 97530; 99285; J1650; 71045; 82607; 82746; 83605; 83735; 83880; 84484; 85025; 93010; 94660; 99232; 99233; 99239; 99291; J0696; J1941; J2060; J2270; J2930; J3490; J7512; J7613; J7620

== ENCOUNTER 2021-02-17 10:44 | Outpatient (CLI) | payer MEDICARE, MEDICAID, SELFPAY ==
--- NOTE | 2021-02-17 10:15 | DI.RAD_ITS ---
Exam(s) XR KNEE RT 3V AP,LAT,FIDEL EXAM: XR KNEE RT 3V AP,LAT,FIDEL CLINICAL HISTORY: R femur fracture. TECHNIQUE: 2D digital imaging was performed. COMPARISON: CR XR KNEE RT 3V AP,LAT,FIDEL from 12/08/2020 FINDINGS: There is now a larger semi lunar shaped calcific density measuring 3.9 cm craniocaudal by 0.6 cm wide calcification seen medially adjacent to the outer aspect of the medial femoral condyle, this above t he avulsed fragment of the medial femoral condyle and corresponding to an area that previously showed increased soft tissue density. This finding suggests Lea-Stieda type injury involving the me dial collateral ligament. No other soft tissue calcifications noted. No joint space narrowing. The re is a small joint effusion noted on the lateral view in the suprapatellar bursa. IMPRESSION: Progression of medial side findings as described above. Suspicion for significant medial collateral ligament injury/[id number]. If clinically indicated follow-up MRI can be performed. DATA REPOSITORY: RADIATION DOSE DELIVERED:
== END 2021-02-17 10:45 | disposition home or self-care (01) ==
LOC: DIORS 10:45
PROVIDERS: PCP Family Medicine; Referring Provider Family Medicine; Visit Provider Student in an Organized Health Care Education/Training Program
DX: S72.8X1D Other fracture of right femur, subsequent encounter for closed fracture with routine healing; X58.XXXD Exposure to other specified factors, subsequent encounter; M25.561 Pain in right knee
CPT/HCPCS: 20610; 73562; J1040

== ENCOUNTER 2021-04-14 13:07 | Outpatient (REF) | payer MEDICARE, MEDICAID, SELFPAY ==
[2021-04-20 12:06] LABS: Benzoylecgonine 182 ng/mL (Cutoff: 50); Cocaine Negative ng/mL (Cutoff: 50); Cocaine Interpretation Positive.
== END 2021-04-14 13:08 | disposition home or self-care (01) ==
LOC: NCHCN 13:07
PROVIDERS: PCP Family Medicine; Visit Provider Family Medicine
DX: Z51.81 Encounter for therapeutic drug level monitoring (principal)
CPT/HCPCS: 80353

== ENCOUNTER 2021-05-12 11:16 | Outpatient (CLI) | payer MEDICARE, MEDICAID, SELFPAY ==
--- NOTE | 2021-05-12 11:14 | DI.RAD_ITS ---
Exam(s) XR KNEE RT 2V AP,LAT EXAM: XR KNEE RT 2V AP,LAT CLINICAL HISTORY: R FEMUR FRACTURE TECHNIQUE: COMPARISON: CR XR KNEE RT 3V AP,LAT,FIDEL from 02/17/2021 FINDINGS: Two views were obtained and again show healing lateral fracture and associated calcification of the m edial aspect of the distal femur. Alignment appears unchanged comparison with examination of [facility] ani 2020 IMPRESSION: RADIATION DOSE DELIVERED: Total DLP
== END 2021-05-12 11:17 | disposition home or self-care (01) ==
LOC: DIORS 11:17
PROVIDERS: PCP Family Medicine; Referring Provider Family Medicine; Visit Provider Student in an Organized Health Care Education/Training Program
DX: X58.XXXA Exposure to other specified factors, initial encounter (principal); S72.91XA Unspecified fracture of right femur, initial encounter for closed fracture; Z87.81 Personal history of (healed) traumatic fracture
CPT/HCPCS: 99214; 73560

== ENCOUNTER 2021-05-26 02:28 | Outpatient (CLI) | payer MEDICARE, MEDICAID, SELFPAY ==
--- NOTE | 2021-05-26 06:45 | DI.MRI_ITS ---
Exam(s) MR LOWER JOINT RT WO EXAM: MR LOWER JOINT RT WO CLINICAL HISTORY: rt knee pain, rt femur fx,rt knee pain,m25.561,[id number]. TECHNIQUE: Multiplanar multisequence MRI was performed. COMPARISON: CR XR KNEE RT 3V AP,LAT,FIDEL from 02/17/2021 CR XR KNEE RT 2V AP,LAT from 05/12/2021 FINDINGS: BONES: There are areas of contusion involving the medial lateral proximal tibia. There is irregulari ty of the cortex of the medial femoral condyle corresponding to the finding on the x-ray which may re present old injury. JOINTS: Chondromalacia patella is seen in the lateral patella facet. There is a small joint effusion . TENDONS: Extensor mechanism: Unremarkable. Medial retinaculum: Unremarkable. Lateral retinaculum: Unremarkable. Popliteus: Unremarkable. MUSCLES: Unremarkable. MENISCI: The medial meniscus is unremarkable. The lateral meniscus is unremarkable. SOFT TISSUES: Unremarkable. LIGAMENTS: Anterior Cruciate: Unremarkable. Posterior Cruciate: Unremarkable. Medial Collateral:There is some thickening of the proximal MCL but no evidence of a tear. Lateral Collateral: Unremarkable. OTHER: Dystrophic ossification is seen adjacent to the medial femoral condyle consistent with the fin dings on the x-ray from 05/12/2021. There is mild associated edema. IMPRESSION: 1. No evidence of an acute meniscal or ligament tear. 2. Irregular cortex of the medial femoral condyle with adjacent dystrophic ossification which may ref lect prior trauma. 3. Marrow edema seen in the proximal tibia which may represent contusions. 4. Small joint effusion with mild chondromalacia patella. DATA REPOSITORY:
== END 2021-05-26 02:48 ==
PROVIDERS: PCP Family Medicine; Visit Provider Student in an Organized Health Care Education/Training Program
DX: M25.561 Pain in right knee (principal); M22.41 Chondromalacia patellae, right knee; M89.9 Disorder of bone, unspecified
CPT/HCPCS: 73721

== ENCOUNTER 2021-06-09 16:41 | Outpatient (REF) | payer MEDICARE, MEDICAID, SELFPAY | END 2021-06-09 16:42 | disposition home or self-care (01) | LOC: NCHCN 16:41 | PROVIDERS: PCP Family Medicine; Visit Provider Family Medicine | DX: Z51.81 Encounter for therapeutic drug level monitoring (principal) | CPT/HCPCS: 80333 ==

== ENCOUNTER 2021-06-27 12:10 | Outpatient (REF) | payer MEDICARE, MEDICAID, SELFPAY ==
[2021-07-01 12:10] LABS: Buprenorphine 8.2 ng/mL (Cutoff: 5.0); Norbuprenorphine 134.2 ng/mL (Cutoff: 2.5)
== END 2021-06-27 12:11 | disposition home or self-care (01) ==
LOC: NCHCN 12:10
PROVIDERS: PCP Family Medicine; Visit Provider Family Medicine
DX: Z51.81 Encounter for therapeutic drug level monitoring (principal); R82.5 Elevated urine levels of drugs, medicaments and biological substances
CPT/HCPCS: 80307

== ENCOUNTER → 2021-08-02 13:19 | Outpatient (BNVA) | payer MEDICARE, MEDICAID, SELFPAY | PROVIDERS: PCP Family Medicine; Referring Provider Family Medicine; Visit Provider Student in an Organized Health Care Education/Training Program | DX: X58.XXXA Exposure to other specified factors, initial encounter (principal); S83.411A Sprain of medial collateral ligament of right knee, initial encounter | CPT/HCPCS: 20610; 99214; J1030 ==

== ENCOUNTER 2021-11-11 16:53 | Inpatient (IN) | payer MEDICARE, MEDICAID, SELFPAY ==
[2021-11-11] VITALS (34 sets, daily range): BP systolic 87–150; BP diastolic 47–108; PULSE 61–183; RESP 15–28; TEMP 36.8; O2SAT 92–98
--- NOTE | 2021-11-11 17:00 | RT.EKG_ITS ---
APPROVED REPORT Exam: Resting ECG Reason for Exam: CHEST PAIN Patient Location: E HR:164 bpm ECG Measurements Heart Rate 164 AXIS RI [id number] P [id number] QRSd 102 QRS 5 QT 279 T 34 QTc 466 Conclusion Atrial fibrillation with rapid V-rate...A-rate 454
--- NOTE | 2021-11-11 17:00 | DI.RAD_ITS ---
Exam(s) XR HUMERUS LT EXAM: XR HUMERUS LT CLINICAL HISTORY: pain. TECHNIQUE: 2D digital imaging was performed. COMPARISON: No exams were available for comparison FINDINGS: 3 views There is a fracture of the left humeral head and neck with severe displacement and the humeral head i s rotated and completely inverted suspect that it is probably dislocated somewhat posteriorly relativ e to the glenoid fossa. IMPRESSION: DATA REPOSITORY: RADIATION DOSE DELIVERED:
--- NOTE | 2021-11-11 17:00 | DI.RAD_ITS ---
Exam(s) XR CHEST 2V PA LATERAL EXAM: XR CHEST 2V PA LATERAL CLINICAL HISTORY: fall, pain. TECHNIQUE: 2D digital imaging was performed. COMPARISON: CR,XR XR PORTABLE CHEST AP from 02/09/2021 FINDINGS: 2 views: Heart size is normal. The mediastinum is not widened. Lungs are clear. No infiltrates nor pleural effusions. Granuloma in the right lung base is unchanged. IMPRESSION: No acute pulmonary findings. DATA REPOSITORY: RADIATION DOSE DELIVERED:
--- NOTE | 2021-11-11 17:00 | DI.RAD_ITS ---
Exam(s) XR SHOULDER LT COMPLETE 2+V EXAM: XR SHOULDER LT COMPLETE 2+V CLINICAL HISTORY: pain s/p fall. TECHNIQUE: 2D digital imaging was performed. COMPARISON: CR RIGHT SHOULDER COMPLETE from 02/21/[address] UPPER EXTREMITY LT WO from 11/11/2021 FINDINGS: 3 views There is a comminuted and displaced fracture of the proximal humerus head and neck. Significant disp lacement. Joint space not widening is probably due to hemarthrosis. There does not appear be an obv ious fracture of the osseous glenoid no of the remainder of the scaphoid. Ipsilateral clavicle appea rs intact. IMPRESSION: DATA REPOSITORY: RADIATION DOSE DELIVERED:
--- NOTE | 2021-11-11 17:07 | ED.GENADUL_ITS ---
Discharge Plan Disposition Patient Disposition: [facility] INPATIENT Condition: Stable Discharge Details Chief Complaint: Trauma Clinical Impression: Atrial fibrillation with rapid ventricular response, Closed left humeral fracture Primary Care Provider: Sherri Guzman V ED Provider: Edwardo Molina [place] Meds and New Rx's Prescriptions: No Action sumatriptan succinate 50 mg tablet See Rx Instructions PO .COMPLEX Rx Instructions: take 1 tab at onset of headache; if no relief may repeat 1 tab after at least 2 hrs; max = 4 tabs/24 hr PO magnesium oxide 400 mg (241.3 mg magnesium) tablet 400 mg PO DAILY famotidine 20 mg tablet 20 mg PO DAILY bupropion HCl [Wellbutrin SR] 150 MG tablet extended release 12 hr 150 mg PO BID Qty: 30 0RF citalopram 20 MG tablet 20 mg PO QAM Qty: 30 0RF cyclobenzaprine 10 MG tablet 10 mg PO TID PRN verapamil 120 mg Tablet Extended Release 120 mg PO DAILY propranolol 160 mg Capsule,Extended Release 24 Hr 160 mg PO DAILY polyethylene glycol 3350 17 gram Powder In Packet 17 g PO DAILY PRN hydrocodone-acetaminophen 10-325 mg Tablet 1 tab PO BID PRN aspirin 81 mg Tablet,Delayed Release (Dr/Ec) 81 mg PO DAILY triamcinolone acetonide 0.1 % Cream 1 applic TOPICAL BID gabapentin 800 mg Tablet 800 mg PO TID terazosin 1 mg Tablet 2 mg PO HS topiramate 50 mg Tablet 50 mg PO BID diclofenac sodium 1 % Gel 4 g TOPICAL BID PRN Bevespi Aerosphere 9-4.8 mcg Hfa Aerosol Inhaler 2 puff INHALATION BID zolpidem 10 mg Tablet 10 mg PO HS PRN lidocaine 5 % Ointment 1 applic TOPICAL QID PRN furosemide 20 mg tablet 20 mg PO DAILY Qty: 3 0RF pantoprazole 40 mg tablet,delayed release (DR/EC) 40 mg PO DAILY Label Comments: TK 1 T PO QD albuterol sulfate 90 mcg/actuation Hfa Aerosol Inhaler 2 puff INHALATION Q6H PRN Medical Decision Making 65 yo male with a PMH of COPD, tobacco abuse disorder, atrial fibrillation, HTN, Hepatitis C, previous alcohol abuse, comes in with complaints of left shoulder pain. He states 2 days ago he was in a pharmacy and hit his foot causing him to fall forward and his left shoulder hit the wall. Denies loc at that time and came in today because he has pain in the left shoulder. He denies chest pain or dyspnea. He arrives caox4 denies head pain, neck pain, back pain, chest or abdomen pain. He is noted on arrival to be in afib with rvr rates in the 140- 160. He has no midline c/t/l spine tenderness, caox4, soft nontender abdomen. His left shoulder area is bruised and has minimal rom due to pain, normal distal sensation and pulses, no pain in the elbow, forearm, wrist, or hand. Suspect humerus fracture, will obtain xrays and given he is in afib with rvr obtain cbc, cmp, troponin and give a dose of diltiazem labs unremarkable xray confirms humerus fracture. Discussed with Dr. Hastings from ortho who reviewed xrays and requests ct for surgical planning which would likely happen next week. He remains in afib with rvr, rates of 130 so dilt drip started, discussed with hospitalist who accepts for admission Differential Diagnosis Differential Diagnosis: afib with rvr, humerus fracture, electrolyte abnormality Medical Records Medical records reviewed: Yes I reviewed the patient's medical records. Imaging Data Radiologic Study: Attestation: I personally reviewed and interpreted this imaging study as follows: Imaging: X-Ray Radiologist's impression: PROCEDURE INFORMATION: Exam: XR Left Humerus Exam date and time: 11/11/2021 5:56 PM Age: 66 years old Clinical indication: Other: Pain, PT. Fell x3 days ago TECHNIQUE: Imaging protocol: Radiologic exam of the Left humerus. Views: 2 or more views. COMPARISON: MRI - L UPPER JOINT WO CONT 03/31/2015 3:45 PM FINDINGS: Bones/joints: Acute fracture of the proximal left humeral metaphysis, predominantly transverse metaphyseal fracture with numerous small comminution fragments along the fracture interface. The humeral head demonstrates severe rotation relative to the glenoid and humeral metaphysis, essentially 180 degrees inverted, and it appears to be posteriorly dislocated from the glenoid. Osteopenia. Lungs: Changes of COPD. Soft tissues: Moderate soft tissue swelling in the lateral to posterior shoulder. IMPRESSION: 1. Proximal left humeral fracture with the humeral head fragment severely rotated/completely inverted, with suspected posterior dislocation from the glenoid. 2. Soft tissue swelling. Radiologic Study #2: Attestation: I personally reviewed and interpreted this imaging study as follows: Imaging: X-Ray Radiologist's impression: PROCEDURE INFORMATION: Exam: XR Chest Exam date and time: 11/11/2021 5:52 PM Age: 66 years old Clinical indication: Other: Pain, fall x3 days ago TECHNIQUE: Imaging protocol: Radiologic exam of the chest. Views: 2 views. COMPARISON: XR PORTABLE CHEST AP 02/09/2021 8:25 PM FINDINGS: Lungs: Granulomatous calcification in the right base. Mild hyperexpansion and hyperlucency with mild diaphragmatic flattening suggesting possible COPD. Pulmonary vasculature grossly normal. No gross pulmonary infiltrates or edema pattern. Pleural spaces: No pleural effusion. No pneumothorax. Heart/Mediastinum: Heart size normal. No tracheal/mediastinal shift. Vasculature: Mild aortic ectasia/tortuosity. Bones/joints: Left proximal humeral fracture marginally visualized, please see shoulder x-ray report. IMPRESSION: 1. No acute thoracic process. 2. COPD. 3. Left proximal humeral fracture marginally visualized, please see shoulder x-ray report. Radiologic Study #3: Attestation: I personally reviewed and interpreted this imaging study as follows: Imaging: X-Ray My impression: fracture shoulder xray Lab Data Lab results reviewed: Yes I reviewed the patient's lab results. ECG Data Attestation: I personally reviewed and interpreted this ECG (s) as follows: Prior ECG tracings: available for review Interpretation: afib with rvr, rates of 164, qtc 466 HPI General Mode of arrival: ambulatory . Date/Time Provider Initiated Documentation: 11/11/21 17:04 . Limitations to Documentation: no limitations . Information obtained by: patient . History of Present Illness 66 year old M presents to the emergency department with the chief complaint of left shoulder pain, described as moderate, Quality is described as aching, Patient started experiencing this day(s) (2) and it has been constant. Rest improves symptom(s), Movement worsens symptoms . Patient did receive the following treatments prior to arrival, none Related Data Home Medications Medication Instructions Recorded Confirmed bupropion HCl 150 mg tablet,12 hr 150 mg PO BID ##30 11/23/14 11/11/21 sustained-release (Wellbutrin SR) citalopram 20 mg tablet 20 mg PO QAM #30 tabs 11/23/14 11/11/21 cyclobenzaprine 10 mg tablet 10 mg PO TID PRN 11/06/15 11/11/21 albuterol sulfate 90 mcg/actuation 2 puff inhalation Q6H PRN 09/24/19 11/11/21 aerosol inhaler pantoprazole 40 mg tablet,delayed 40 mg PO DAILY 09/24/19 11/11/21 release famotidine 20 mg tablet 20 mg PO DAILY 12/08/19 11/11/21 magnesium oxide 400 mg (241.3 mg 400 mg PO DAILY 12/08/19 11/11/21 magnesium) tablet sumatriptan succinate 50 mg tablet See Rx Instructions PO .COMPLEX 12/08/19 11/11/21 aspirin 81 mg tablet,delayed 81 mg PO DAILY 01/22/20 11/11/21 release diclofenac sodium 1 % topical gel 4 g topical BID PRN 01/22/20 08/02/21 gabapentin 800 mg tablet 800 mg PO TID 01/22/20 11/11/21 glycopyrrolate 9 mcg-formoterol 2 puff inhalation BID 01/22/20 11/11/21 4.8 mcg HFA aerosol inhaler (Bevespi Aerosphere) hydrocodone 10 mg-acetaminophen 1 tab PO BID PRN 01/22/20 11/11/21 325 mg tablet polyethylene glycol 3350 17 gram 17 g PO DAILY PRN 01/22/20 11/11/21 oral powder packet propranolol 160 mg capsule,24 160 mg PO DAILY 01/22/20 11/11/21 hr,extended release terazosin 1 mg tablet 2 mg PO HS 01/22/20 11/11/21 topiramate 50 mg tablet 50 mg PO BID 01/22/20 11/11/21 triamcinolone acetonide 0.1 % 1 applic topical BID 01/22/20 11/11/21 topical cream verapamil 120 mg tablet,extended 120 mg PO DAILY 01/22/20 11/11/21 release lidocaine 5 % topical ointment 1 applic topical QID PRN 02/10/21 11/11/21 zolpidem 10 mg tablet 10 mg PO HS PRN 02/10/21 11/11/21 furosemide 20 mg tablet 20 mg PO DAILY #3 tabs 02/11/21 11/11/21 Previous Rx's Medication Instructions Recorded bupropion HCl 150 mg tablet,12 hr 150 mg PO BID ##30 11/23/14 sustained-release (Wellbutrin SR) citalopram 20 mg tablet 20 mg PO QAM #30 tabs 11/23/14 furosemide 20 mg tablet 20 mg PO DAILY #3 tabs 02/11/21 Allergies Allergy/AdvReac Type Severity Reaction Status Date / Time amlodipine Allergy Unknown Unverified 11/11/21 17:07 trazodone Allergy Unknown Unverified 11/11/21 17:07 diazepam AdvReac Intermediate Agitation Unverified 11/11/21 17:07 clonidine AdvReac Mild Dry mouth Unverified 11/11/21 17:07 lisinopril AdvReac Mild Cough Unverified 11/11/21 17:07 losartan AdvReac Mild Cough Unverified 11/11/21 17:07 tramadol AdvReac Nauseous Unverified 11/11/21 17:07 General Stated Complaint: Trauma DAYSI: 2 Review of Systems All systems reviewed & are unremarkable except as noted in HPI and below Constitutional Constitutional: Denies chills, Denies fever(s) and Denies weakness Cardiovascular Cardiovascular: Denies chest pain and Denies dyspnea Respiratory Respiratory: Denies cough and Denies dyspnea Gastrointestinal Gastrointestinal: Denies abdominal pain, Denies nausea and Denies vomiting Integumentary/Breasts Skin/Breast: Denies rash Neurologic Neurologic: Denies weakness PFSH All Active Problems (Updated 11/11/21 @ 18:58 by Edwardo Molina MD) Atrial fibrillation with rapid ventricular response (Acute) Closed left humeral fracture (Acute) Closed fracture of left proximal humerus (Acute 11/11/21) MCL sprain of right knee (Acute) Alcohol abuse (Chronic) Chest discomfort (Chronic) Acute on chronic diastolic heart failure (Acute) Bilateral pleural effusion (Acute) Falls (Acute) Discharge planning issues (Acute) DVT prophylaxis (Acute) Pulmonary nodule (Acute) Hyponatremia (Acute) Acute respiratory failure with hypoxia (Acute) Acute exacerbation of chronic obstructive pulmonary disease (Acute) Pneumonia (Acute) Acute respiratory distress (Acute) Femur fracture, right (Acute) Fracture, rib (Acute) A-fib (Chronic) Laceration of digital nerve of left thumb (Acute) Gastritis and duodenitis (Acute) Medical History Alcohol withdrawal Arthritis COPD (chronic obstructive pulmonary disease) Depression Hepatitis C Per H&P: s/p tx. . He had an abc CT earlier this year which showed a normal liver. Hypertension Neck fracture Per pt. states he broke his nevk 5-6 years ago. Upper GI bleed Varices of esophagus determined by endoscopy Surgical History History of cataract surgery History of cataract surgery History of hand surgery History of surgery on wrist Social History Smoking/Tobacco Use Status: Current every day Tobacco Type: cigarettes Smoking risk assessment performed?: Yes Alcohol Intake: current Alcohol Intake frequency: holidays/special occasions only Drug use: Never Substance use type: does not use and unknown Current gender identity: male Do you feel safe at home: Yes Do you feel safe in your relationship?: Yes Additional Social history: lives alone Exam Const General: no acute distress Orientation: alert HENMT Head: normal to inspection Ears: external ears normal General nose exam: external nose normal Mouth: moist mucous membranes Eyes General: appearance normal, both eyes and all related structures Neck Neck: normal visual inspection Resp Effort & Inspection: normal respiratory effort and able to speak in complete sentences Cardio Jugular venous pressure: no JVD Rate: tachycardic Skin General skin exam: no rashes or lesions noted Neuro General: patient alert and patient oriented x3 Extrem General: capillary refill normal Psych Mental Status: mental status grossly normal Course Vital Signs Vital signs: Vital Signs Pulse 161 H 11/11/21 16:58 Respiratory Rate 11/11/21 16:58 Blood Pressure 150/108 H 11/11/21 16:58 Pulse Oximetry 92 11/11/21 16:58 Pulse 161 H 11/11/21 16:58 Respiratory Rate 23 11/11/21 16:58 Blood Pressure 150/108 H 11/11/21 16:58 Blood Pressure Position Sitting 11/11/21 16:58 Pulse Oximetry 92 11/11/21 16:58 Oxygen Delivery Method Room Air 11/11/21 16:58 Oxygen Flow Rate 0 11/11/21 16:58 Pain Level 8 11/11/21 16:58 Critical Care Time Critical Care Time Critical Care Time: Yes Total Critical Care Time: 60 (minutes) Attestation: time spent administering iv isacc blockers in a patient with afib with rvr and potential to deteriorate at any time and required frequent reassessments and hemodynamic monitoring
[2021-11-11 17:48] LABS: Absolute Eosinophil Count 0.08 10^3/uL (0.0-0.7); Absolute Lymphocyte Count 1.96 10^3/uL (1.2-3.4); Absolute Monocyte Count 1.23 10^3/uL (0.1-0.8); Absolute Neutrophil Count 8.36 10^3/uL (1.2-6.7); Basophils % 0.8; Eosinophils % 0.7; HCT 38.6 % (40.0-50.0); HGB 13.2 g/dL (13.5-17.5); Immature Grans % 0.8; Lymphocytes % 16.6; MCH 32.5 pg (27.0-33.0); MCHC 34.2 % (32.0-36.0); MCV 95 fL (80-95); Monocytes % 10.4; Neutrophils % 70.7; RBC 4.06 10^6/uL (4.36-5.78); RDW 12.4 % (11.8-14.1); RDW-SD 42.8 fL; WBC 11.83 10^3/uL (4.4-10.8)
[2021-11-11] MEDS: Normal Saline 1,000 ML 1000 ML IV (17:49)
[2021-11-11] MEDS: HYDROmorphone 2 MG/ML SYR 1 MG IVP ×2 (17:49→20:30)
[2021-11-11 17:59] LABS: Absolute Basophil Count 0.09 10^3/uL (0.0-0.2)
[2021-11-11 18:00] LABS: Platelet Count 424 10^3/uL (130-400)
[2021-11-11 18:01] LABS: Diff Comment PLT Morph Reviewed; RBC Morphology Normal
[2021-11-11 18:02] LABS: PTT Activated 22.8 sec (21.0-27.5); Prothrombin Time 9.9 sec (9.3-11.0)
[2021-11-11 18:06] LABS: ALT 22 U/L (16-63); AST 21 U/L (15-37); Albumin 2.9 g/dL (3.4-5.0); Alkaline Phosphatase 102 U/L (46-116); Anion Gap 5.7 mmol/L (3-11); BUN 7 mg/dL (7-18); Bilirubin, Total 0.9 mg/dL (0.2-1.0); CO2 30.3 mmol/L (21.0-32.0); CREATININE 1.2 mg/dL (0.70-1.30); Calcium 8.9 mg/dL (8.5-10.1); Chloride 98 mmol/L (98-107); Glucose 105 mg/dL (74-106); Magnesium 1.8 mg/dL (1.8-2.4); Sodium 134 mmol/L (136-145); Total Protein 7.7 g/dL (6.4-8.2); Troponin I < 50 ng/L (<or=60)
[2021-11-11] MEDS: dilTIAZem 25 MG/5 ML VIAL 20 MG IVP (18:26)
--- NOTE | 2021-11-11 18:30 | DI.VRAD_ITS ---
PROCEDURE INFORMATION: Exam: XR Left Humerus Exam date and time: 11/11/2021 5:56 PM Age: 66 years old Clinical indication: Other: Pain, PT. Fell x3 days ago TECHNIQUE: Imaging protocol: Radiologic exam of the Left humerus. Views: 2 or more views. COMPARISON: MRI - L UPPER JOINT WO CONT 03/31/2015 3:45 PM FINDINGS: Bones/joints: Acute fracture of the proximal left humeral metaphysis, predominantly transverse metaphyseal fracture with numerous small comminution fragments along the fracture interface. The humeral head demonstrates severe rotation relative to the glenoid and humeral metaphysis, essentially 180 degrees inverted, and it appears to be posteriorly dislocated from the glenoid. Osteopenia. Lungs: Changes of COPD. Soft tissues: Moderate soft tissue swelling in the lateral to posterior shoulder. IMPRESSION: 1. Proximal left humeral fracture with the humeral head fragment severely rotated/completely inverted, with suspected posterior dislocation from the glenoid. 2. Soft tissue swelling. Dictated and Authenticated by: Renzo Parham MD. Ordering:THEO Brooke MD
--- NOTE | 2021-11-11 18:30 | DI.CT_ITS ---
Exam(s) CT UPPER EXTREMITY LT WO EXAM: CT UPPER EXTREMITY LT WO CLINICAL HISTORY: Complex prox hum fx/dx TECHNIQUE: Imaging Protocol: Axial computed tomography images with coronal and sagittal reformatted images were created and reviewed. CONTRAST MATERIAL: None COMPARISON: CR,XR XR SHOULDER LT COMPLETE 2+V from 11/11/2021 FINDINGS: OSSEOUS: There is a comminuted complex fracture of the proximal left humerus with multiple fracture p lanes and the humeral head dominant fragment is rotated and inverted add slightly posteriorly subluxe d but without vasile dislocation. There is a large joint effusion-hemarthrosis. Ipsilateral clavicle is intact. AC joint unremarkable. There are healing fractures in the anterior aspects of the left 3rd, 4th, and 5th ribs. Incidentally noted is a 4 millimeter nodule in the left lung which requires appropriate follow-up. IMPRESSION: Complex comminuted fracture of the left humeral head and neck. Adjacent rib fractures also noted whi ch appear subacute. RADIATION DOSE DELIVERED: 961.14mGy.cm Total DLP DATA REPOSITORY: All CT scans at this facility are submitted to the National Radiology Data Registry (NRDR) Dose Index Registry (DIR) with the [employer] (ACR). RADIATION OPTIMIZATION: All CT scans at this facility use at least one of these dose optimization te chniques: automated exposure control; mA and/or kV adjustment per patient size (includes targeted exa ms where dose is matched to clinical indication); or iterative reconstruction.
--- NOTE | 2021-11-11 18:31 | DI.VRAD_ITS ---
PROCEDURE INFORMATION: Exam: XR Chest Exam date and time: 11/11/2021 5:52 PM Age: 66 years old Clinical indication: Other: Pain, fall x3 days ago TECHNIQUE: Imaging protocol: Radiologic exam of the chest. Views: 2 views. COMPARISON: XR PORTABLE CHEST AP 02/09/2021 8:25 PM FINDINGS: Lungs: Granulomatous calcification in the right base. Mild hyperexpansion and hyperlucency with mild diaphragmatic flattening suggesting possible COPD. Pulmonary vasculature grossly normal. No gross pulmonary infiltrates or edema pattern. Pleural spaces: No pleural effusion. No pneumothorax. Heart/Mediastinum: Heart size normal. No tracheal/mediastinal shift. Vasculature: Mild aortic ectasia/tortuosity. Bones/joints: Left proximal humeral fracture marginally visualized, please see shoulder x-ray report. IMPRESSION: 1. No acute thoracic process. 2. COPD. 3. Left proximal humeral fracture marginally visualized, please see shoulder x-ray report. Dictated and Authenticated by: Renzo Parham MD. Ordering:THEO Brooke MD
--- NOTE | 2021-11-11 18:34 | DI.VRAD_ITS ---
PROCEDURE INFORMATION: Exam: XR Left Shoulder Exam date and time: 11/11/2021 6:03 PM Age: 66 years old Clinical indication: Other: Pain, PT. Fell x3 days ago TECHNIQUE: Imaging protocol: Radiologic exam of the Left shoulder. Views: 2 or more views. COMPARISON: MRI - L UPPER JOINT WO CONT 03/31/2015 3:45 PM FINDINGS: Bones/joints: Comminuted left proximal humeral fracture with with several small comminution fragments distributed along the margins of the transverse metaphyseal fracture component. The humeral head fragment is severely rotated, essentially 180 degrees inverted, with the articular surface directed inferiorly, and the humeral head fragment appears to be posteriorly dislocated from the glenoid. There is a 5 cm displaced posterior metaphyseal fragment. No gross glenoid fracture. AC joint alignment is normal. Adjacent ribs intact. Soft tissues: Moderate soft tissue swelling around the shoulder. IMPRESSION: 1. Comminuted displaced left proximal humeral fracture with severe rotation of the humeral head fragment, which appears posteriorly dislocated from the glenoid. 2. Soft tissue swelling. Dictated and Authenticated by: Renzo Parham MD. Ordering:THEO Brooke MD
--- NOTE | 2021-11-11 18:47 | W.PM.HP.N ---
Date of service: 11/11/21 Time of Service: 18:47 Assessment and Plan Assessment and plan (1) Atrial fibrillation with rapid ventricular response: Start date: 11/11/21 Status: Acute Assessment and plan: This is a 66-year-old gentleman who has rapid ventricular sponsor is atrial fibrillation requiring IV diltiazem for rate control. The troponins are negative and this is most likely a consequence of his injury. He does have a history of alcohol use and hyponatremia as well as chronic pain. He will continue on IV diltiazem as we need to oral therapy as allowed and trend troponins. Patient usually is on verapamil along which may be reevaluated for rate control converting to diltiazem or metoprolol. He is a full code. (2) Closed left humeral fracture: Start date: 11/11/21 Status: Acute Assessment and plan: Comminuted and complicated with orthopedic consulted. Right shoulder also is painful and will be imaged. (3) Hyponatremia: Status: Chronic Assessment and plan: Most likely associate with alcohol use. Trend labs. Monitor closely as continue usual treatment for CHF. History of Present Illness History of Present Illness Chief Complaint: Shoulder pain with headache Narrative: This is a 66-year-old gentleman who tripped into a brick wall while at [employer]. He stubbed his toe thrusting him forward. He had no loss of consciousness but does have a headache and left shoulder pain. He also has right shoulder pain but this was not x-rayed in the ED. Imaging showed a fracture of left humerus and normal head CT. His right shoulder will be x-rayed and orthopedics has been consulted. The patient presently is complaining mostly of pain and denies any shortness of breath. He does have peripheral edema which is chronic and is on diuretics daily. In the ED the patient had exacerbation of his chronic atrial fibrillation with rapid ventricular response and required diltiazem infusion which is ongoing. Rate control is much improved. He is not having palpitations or chest pain. Troponins have been negative. Review of Systems Narrative: 13 point review of systems positive for chronic pain as well as deconditioning overall otherwise unrevealing or stable. PFSH All Active Problems (Updated 11/12/21 @ 03:52 by Jerson Delarosa) Atrial fibrillation with rapid ventricular response (Acute) Closed left humeral fracture (Acute) Closed fracture of left proximal humerus (Acute 11/11/21) MCL sprain of right knee (Acute) Alcohol abuse (Chronic) Chest discomfort (Chronic) Acute on chronic diastolic heart failure (Acute) Bilateral pleural effusion (Acute) Falls (Acute) Discharge planning issues (Acute) DVT prophylaxis (Acute) Pulmonary nodule (Acute) Hyponatremia (Chronic) Acute respiratory failure with hypoxia (Acute) Acute exacerbation of chronic obstructive pulmonary disease (Acute) Pneumonia (Acute) Acute respiratory distress (Acute) Femur fracture, right (Acute) Fracture, rib (Acute) A-fib (Chronic) Laceration of digital nerve of left thumb (Acute) Gastritis and duodenitis (Acute) Medical History Alcohol withdrawal Arthritis COPD (chronic obstructive pulmonary disease) Depression Hepatitis C Per H&P: s/p tx. . He had an abc CT earlier this year which showed a normal liver. Hypertension Neck fracture Per pt. states he broke his nevk 5-6 years ago. Upper GI bleed Varices of esophagus determined by endoscopy Surgical History History of cataract surgery History of cataract surgery History of hand surgery History of surgery on wrist Social History Smoking/Tobacco Use Status: Current every day Tobacco Type: cigarettes Smoking risk assessment performed?: Yes Alcohol Intake: current Alcohol Intake frequency: holidays/special occasions only Drug use: Never Substance use type: does not use and unknown Current gender identity: male Do you feel safe at home: Yes Do you feel safe in your relationship?: Yes Additional Social history: lives alone Meds Allergies and Home Medications Allergies Allergy/AdvReac Type Severity Reaction Status Date / Time amlodipine Allergy Unknown Unverified 11/11/21 17:07 trazodone Allergy Unknown Unverified 11/11/21 17:07 diazepam AdvReac Intermediate Agitation Unverified 11/11/21 17:07 clonidine AdvReac Mild Dry mouth Unverified 11/11/21 17:07 lisinopril AdvReac Mild Cough Unverified 11/11/21 17:07 losartan AdvReac Mild Cough Unverified 11/11/21 17:07 tramadol AdvReac Nauseous Unverified 11/11/21 17:07 Home Medications Medication Instructions Recorded Confirmed Type bupropion HCl 150 mg tablet,12 hr 150 mg PO BID ##30 11/23/11/11/21 Rx sustained-release (Wellbutrin SR) citalopram 20 mg tablet 20 mg PO QAM #30 tabs 11/23/14 11/11/21 Rx cyclobenzaprine 10 mg tablet 10 mg PO TID PRN 11/05/11/11/21 History albuterol sulfate 90 mcg/actuation 2 puff inhalation Q6H PRN 09/24/19 11/11/21 History aerosol inhaler pantoprazole 40 mg tablet,delayed 40 mg PO DAILY 09/24/19 11/11/21 History release famotidine 20 mg tablet 20 mg PO DAILY 12/08/19 11/11/21 History magnesium oxide 400 mg (241.3 mg 400 mg PO DAILY 12/08/19 11/11/21 History magnesium) tablet sumatriptan succinate 50 mg tablet See Rx Instructions PO .COMPLEX 12/08/19 11/11/21 History aspirin 81 mg tablet,delayed 81 mg PO DAILY 01/22/20 11/11/21 History release diclofenac sodium 1 % topical gel 4 g topical BID PRN 01/22/20 08/02/21 History gabapentin 800 mg tablet 800 mg PO TID 01/22/20 11/11/21 History glycopyrrolate 9 mcg-formoterol 2 puff inhalation BID 01/22/20 11/11/21 History 4.8 mcg HFA aerosol inhaler (Bevespi Aerosphere) hydrocodone 10 mg-acetaminophen 1 tab PO BID PRN 01/22/20 11/11/21 History 325 mg tablet polyethylene glycol 3350 17 gram 17 g PO DAILY PRN 01/22/20 11/11/21 History oral powder packet propranolol 160 mg capsule,24 160 mg PO DAILY 01/22/20 11/11/21 History hr,extended release terazosin 1 mg tablet 2 mg PO HS 01/22/20 11/11/21 History topiramate 50 mg tablet 50 mg PO BID 01/22/20 11/11/21 History triamcinolone acetonide 0.1 % 1 applic topical BID 01/22/20 11/11/21 History topical cream verapamil 120 mg tablet,extended 120 mg PO DAILY 01/22/20 11/11/21 History release lidocaine 5 % topical ointment 1 applic topical QID PRN 02/10/21 11/11/21 History zolpidem 10 mg tablet 10 mg PO HS PRN 02/10/21 11/11/21 History furosemide 20 mg tablet 20 mg PO DAILY #3 tabs 02/11/21 11/11/21 Rx Exam Narrative Exam Narrative: General: Patient appears older than stated age, alert and oriented x3 and in no acute distress. He has multiple tattoos. His bruise over his left side. HEENT: Normocephalic, eyes with pupils equal and reactive light symmetrically, extraocular movements active sclera anicteric. Oropharynx with moist mucosa. Coarsened facial features with abrasion over left nondenominational. Neck: Supple with decreased range of motion secondary to discomfort from chronic disc disease. No JVD. Back: Stooped posture without CVA tenderness. Bruising over his left side. Lung: Bronchovesicular breath sounds diffusely with fair aeration and no focalizing rales but diffuse coarse crackles and rhonchi. No expiratory wheeze. Heart: Regular rate and irregular rhythm with no murmurs or gallops appreciated. Abdomen: Normal contour, soft nontender to palpation with no palpable hepatosplenomegaly. Bowel sounds positive all quadrants. Genitalia/rectal: Exam deferred. Extremities: Left shoulder with swelling and bruising with tenderness and inability to do range of motion. Swelling extends into arm and forearm with bruising with adequate pulses left arm. Good capillary refill lower extremities. Nonpitting edema over feet and ankles. No clubbing or cyanosis. Right shoulder slightly tender but no swelling. Skin: Bruising of the left side, normal color, warm and dry. Neuro: Cranial nerves II through XII gross intact, no focal motor deficits. Psych: Flat affect with depressed mood. No abnormal thought processes. Remote and recent memory intact. Results Imaging Imaging Studies: Exam: CT Left Upper Extremity Without Contrast, Shoulder Exam date and time: 11/11/2021 7:18 PM Age: 66 years old Clinical indication: Injury or trauma; Fall; Fracture, traumatic injury; Closed fracture; Left; Upper end of humerus; Injury date: 08/08/21; Injury details: Complex prox hum fx/dx TECHNIQUE: Imaging protocol: Computed tomography of the Left upper extremity without contrast. Exam focused on the shoulder. Radiation optimization: All CT scans at this facility use at least one of these dose optimization techniques: automated exposure control; mA and/or kV adjustment per patient size (includes targeted exams where dose is matched to clinical indication); or iterative reconstruction. COMPARISON: CR XR SHOULDER LT COMPLETE 2+V 11/11/2021 6:03 PM FINDINGS: Bones/joints: Osteopenia. Complex left proximal humeral fracture. Comminuted transverse metaphyseal fracture demonstrates numerous small comminution fragments around its margins. The humeral head fragment is posteriorly displaced about 2.6 cm relative to the metaphysis and appears significantly rotated/inverted with the articular surface directed inferiorly. There is comminuted fracture extension to involve both the greater tuberosity and the lesser tuberosity. The humeral head appears mildly posteriorly subluxed but not frankly dislocated relative to the glenoid. No glenoid/scapular fracture components. Chronic appearing fracture of the left anterior 3rd through 5th ribs, with additional mild cortical contour irregularity in these ribs which could represent superimposed nondisplaced acute fractures. No pneumothorax. Large shoulder joint effusion or hemarthrosis expanding the joint space. Soft tissues: Moderate soft tissue swelling around the left shoulder. No gross hematoma. Lymph nodes: Borderline enlarged left axillary nodes measuring up to 10 mm short axis, nonspecific. Lungs: 4 mm pulmonary nodule in the lingular portion of the left lower lobe without measurable calcification. For patients at low risk (minimal or absent history of smoking and of other known risk factors), no routine follow-up is indicated. For patients at high risk (history of smoking or of other known risk factors), consider optional CT at 12 months. (Amber et al., Fleischner Society, 2017). IMPRESSION: 1. Complex comminuted fracture of the left proximal humerus with transverse metaphyseal, greater tuberosity, and lesser tuberosity fracture planes. The humeral head dominant fragment is inverted/rotated and mildly posteriorly subluxed without vasile dislocation. 2. Large left shoulder joint effusion or hemarthrosis. 3. There are chronic left rib fractures present with a few areas of mild cortical contour irregularity in the anterior left 3rd through 5th ribs which might represent nondisplaced acute fractures. 4. There is a 4 mm pulmonary nodule in the left lower lobe, please see recommendations above. Labs Result diagrams: 11/11/21 17:43 11/11/21 17:43 Labs: Laboratory Results - last 24 hr 11/11/21 11/11/21 11/11/21 17:43 17:43 17:43 WBC 11.83 H RBC 4.06 L Hgb 13.2 L Hct 38.6 L MCV 95 MCH 32.5 MCHC 34.2 RDW 12.4 Plt Count 424 H MPV Immature Gran % 0.8 Neutrophils % 70.7 Lymphocytes % 16.6 Monocytes % 10.4 Eosinophils % 0.7 Basophils % 0.8 Nucleated RBC % 0.0 Absolute Neutrophils 8.36 H Absolute Lymphocytes 1.96 Absolute Monocytes 1.23 H Absolute Eosinophils 0.08 Absolute Basophils 0.09 RBC Morphology Normal PT 9.9 INR 1.0 APTT 22.8 Sodium 134 L Potassium 4.0 Chloride 98 Carbon Dioxide 30.3 Anion Gap 5.7 BUN 7 Creatinine 1.2 Est GFR (CKD-EPI 2020) 66.70 Glucose 105 Calcium 8.9 Magnesium 1.8 Total Bilirubin 0.9 AST 21 ALT 22 Alkaline Phosphatase 102 Troponin I < 50 Total Protein 7.7 Albumin 2.9 L Last Vital Signs Pulse 155 H 11/11/21 18:26 Resp 23 11/11/21 16:58 BP 129/84 11/11/21 18:26 Pulse Ox 92 11/11/21 16:58
--- NOTE | 2021-11-11 19:15 | DI.CT_ITS ---
Exam(s) CT CERVICAL SPINE WO EXAM: CT CERVICAL SPINE WO CLINICAL HISTORY: fall. TECHNIQUE: Imaging Protocol: Axial computed tomography images with coronal and sagittal reformatted images were created and reviewed COMPARISON: No exams were available for comparison FINDINGS: CERVICAL SPINE: There is no evidence of fracture nor significant listhesis. No significant prevertebral soft tissue swelling. Multilevel chronic degenerative disc space narrowing. His multilevel facet arthropathy. Also multil evel Luschka joint osteophytes. There is no significant facet joint malalignment. No significant osseous lesions evident. IMPRESSION: Advanced degenerative changes but no evidence of acute fracture, malalignment, nor acute compromise o f the cervical spinal canal. RADIATION DOSE DELIVERED: 741.02mGy.cm Total DLP DATA REPOSITORY: All CT scans at this facility are submitted to the National Radiology Data Registry (NRDR) Dose Index Registry (DIR) with the [employer] (ACR). RADIATION OPTIMIZATION: All CT scans at this facility use at least one of these dose optimization te chniques: automated exposure control; mA and/or kV adjustment per patient size (includes targeted exa ms where dose is matched to clinical indication); or iterative reconstruction.
[2021-11-11 19:47] LABS: Source Nasal/Nares
[2021-11-11] MEDS: dilTIAZem 125 MG in Normal Saline 100 ML IV (20:00)
--- NOTE | 2021-11-11 20:07 | DI.VRAD_ITS ---
PROCEDURE INFORMATION: Exam: CT Cervical Spine Without Contrast Exam date and time: 11/11/2021 7:27 PM Age: 66 years old Clinical indication: Injury or trauma; Blunt trauma; Injury date: 11/08/21; Injury details: Fall three days ago, neck pain , complex prox hum fx/dx TECHNIQUE: Imaging protocol: Computed tomography of the cervical spine without contrast. Radiation optimization: All CT scans at this facility use at least one of these dose optimization techniques: automated exposure control; mA and/or kV adjustment per patient size (includes targeted exams where dose is matched to clinical indication); or iterative reconstruction. COMPARISON: CT UPPER EXTREMITY LT WO 11/11/2021 7:18 PM FINDINGS: Bones/joints: Osteopenia. Craniocervical alignment is normal. The occipital condyles are intact. The odontoid is intact. Moderate degenerative sclerosis and spurring at the atlantodens interval. No jumped or perched facets. Moderate left-sided facet hypertrophic changes C2-C3 and C7-T1. No fractures. 2 mm degenerative anterolisthesis C2-C3 and C7-T1. No blastic or lytic lesions. Moderate-severe disc space narrowing C4-C5 through C6-C7 with prominent anterior spurring and moderate posterior spurring. No compressive soft disc protrusion or extrusion is evident by CT. Moderate canal stenosis C4-C5 through C6-C7. Right foraminal stenosis is severe at C4-C5 and C5-C6 and moderate at C6-C7. Left foraminal stenosis is mild at C4-C5, severe at C5-C6, and moderate-severe at C6-C7. Lungs: Visualized pulmonary apices are clear. Thyroid: The visualized thyroid gland is unremarkable. Vasculature: Severe atherosclerotic calcific plaque in the carotid bulbs. Soft tissues: Paraspinous soft tissues are unremarkable without significant soft tissue swelling or soft tissue hematoma. IMPRESSION: 1. No evidence of fracture or acute traumatic subluxation. 2. Osteopenia and osteoarthritic changes with multilevel canal and bilateral foraminal stenoses detailed above. Dictated and Authenticated by: Renzo Parham MD. Ordering:THEO Brooke MD
--- NOTE | 2021-11-11 20:14 | DI.VRAD_ITS ---
PROCEDURE INFORMATION: Exam: CT Left Upper Extremity Without Contrast, Shoulder Exam date and time: 11/11/2021 7:18 PM Age: 66 years old Clinical indication: Injury or trauma; Fall; Fracture, traumatic injury; Closed fracture; Left; Upper end of humerus; Injury date: 08/08/21; Injury details: Complex prox hum fx/dx TECHNIQUE: Imaging protocol: Computed tomography of the Left upper extremity without contrast. Exam focused on the shoulder. Radiation optimization: All CT scans at this facility use at least one of these dose optimization techniques: automated exposure control; mA and/or kV adjustment per patient size (includes targeted exams where dose is matched to clinical indication); or iterative reconstruction. COMPARISON: CR XR SHOULDER LT COMPLETE 2+V 11/11/2021 6:03 PM FINDINGS: Bones/joints: Osteopenia. Complex left proximal humeral fracture. Comminuted transverse metaphyseal fracture demonstrates numerous small comminution fragments around its margins. The humeral head fragment is posteriorly displaced about 2.6 cm relative to the metaphysis and appears significantly rotated/inverted with the articular surface directed inferiorly. There is comminuted fracture extension to involve both the greater tuberosity and the lesser tuberosity. The humeral head appears mildly posteriorly subluxed but not frankly dislocated relative to the glenoid. No glenoid/scapular fracture components. Chronic appearing fracture of the left anterior 3rd through 5th ribs, with additional mild cortical contour irregularity in these ribs which could represent superimposed nondisplaced acute fractures. No pneumothorax. Large shoulder joint effusion or hemarthrosis expanding the joint space. Soft tissues: Moderate soft tissue swelling around the left shoulder. No gross hematoma. Lymph nodes: Borderline enlarged left axillary nodes measuring up to 10 mm short axis, nonspecific. Lungs: 4 mm pulmonary nodule in the lingular portion of the left lower lobe without measurable calcification. For patients at low risk (minimal or absent history of smoking and of other known risk factors), no routine follow-up is indicated. For patients at high risk (history of smoking or of other known risk factors), consider optional CT at 12 months. (Amber et al., Fleischner Society, 2017). IMPRESSION: 1. Complex comminuted fracture of the left proximal humerus with transverse metaphyseal, greater tuberosity, and lesser tuberosity fracture planes. The humeral head dominant fragment is inverted/rotated and mildly posteriorly subluxed without vasile dislocation. 2. Large left shoulder joint effusion or hemarthrosis. 3. There are chronic left rib fractures present with a few areas of mild cortical contour irregularity in the anterior left 3rd through 5th ribs which might represent nondisplaced acute fractures. 4. There is a 4 mm pulmonary nodule in the left lower lobe, please see recommendations above. Dictated and Authenticated by: Renzo Parham MD. Ordering:ELIJAH Stauffer MD
[2021-11-11 20:40] LABS: COVID-19 PCR Negative (Negative)
[2021-11-11 20:47] LABS: Troponin I < 50 ng/L (<or=60)
[2021-11-11] MEDS: Enoxaparin 40 MG/0.4 ML SYR SC (21:52)
[2021-11-11] MEDS: buPROPion-CR 150 MG TABCR PO (21:52)
[2021-11-11] MEDS: Topiramate 50 MG TAB PO (22:25)
[2021-11-11] MEDS: Gabapentin 400 MG CAP 800 MG PO (22:45)
[2021-11-11] MEDS: Lidocaine 4% Cream 5 GM TUBE TP (23:35)
[2021-11-12] VITALS (33 sets, daily range): BP systolic 94–146; BP diastolic 59–105; PULSE 64–115; RESP 4–24; TEMP 36.6–37.4; O2SAT 89–98
[2021-11-12] MEDS: HYDROcodone 10/Acetaminophen 325 TAB PO ×4 (01:23→19:42)
[2021-11-12] MEDS: Normal Saline Flush 10 ML SYR IVP (05:13)
[2021-11-12] MEDS: HYDROmorphone 2 MG/ML SYR 1 MG IVP ×2 (05:13→15:36)
[2021-11-12] MEDS: Albuterol 2.5 MG/3 ML INH SOLN VIAL UPD (05:20)
[2021-11-12 05:55] LABS: Abs Immature Grans 0.09 10^3/uL (0.0-0.06); Absolute Eosinophil Count 0.18 10^3/uL (0.0-0.7); Absolute Lymphocyte Count 2.33 10^3/uL (1.2-3.4); Absolute Monocyte Count 1.17 10^3/uL (0.1-0.8); Absolute Neutrophil Count 5.22 10^3/uL (1.2-6.7); Basophils % 1.1; HCT 37.8 % (40.0-50.0); HGB 12.5 g/dL (13.5-17.5); Lymphocytes % 25.6; MCH 32.6 pg (27.0-33.0); MCHC 33.1 % (32.0-36.0); MCV 98 fL (80-95); MPV 10.3 fL (8.0-11.0); Monocytes % 12.9; Neutrophils % 57.4; Platelet Count 330 10^3/uL (130-400); RBC 3.84 10^6/uL (4.36-5.78); RDW 12.6 % (11.8-14.1); RDW-SD 45.1 fL; WBC 9.09 10^3/uL (4.4-10.8)
[2021-11-12 06:25] LABS: ALT 20 U/L (16-63); AST 28 U/L (15-37); Albumin 2.6 g/dL (3.4-5.0); Alkaline Phosphatase 91 U/L (46-116); Anion Gap 5.3 mmol/L (3-11); BUN 7 mg/dL (7-18); Bilirubin, Total 0.9 mg/dL (0.2-1.0); CO2 30.7 mmol/L (21.0-32.0); CREATININE 1.3 mg/dL (0.70-1.30); Calcium 8.7 mg/dL (8.5-10.1); Chloride 100 mmol/L (98-107); Estimated GFR 60.59 (mL/min/1.73m2); Glucose 102 mg/dL (74-106); Magnesium 1.8 mg/dL (1.8-2.4); Potassium 3.9 mmol/L (3.5-5.1); Sodium 136 mmol/L (136-145); TSH (W/Ref FT4) 3.88 uIU/mL (0.36-3.74)
[2021-11-12 06:52] LABS: FREE T4 1.53 ng/dL (0.76-1.46)
[2021-11-12] MEDS: Citalopram 20 MG TAB PO (08:45)
[2021-11-12] MEDS: Cyclobenzaprine 10 MG TAB PO ×2 (08:46→15:36)
[2021-11-12] MEDS: Aspirin E.C. 81 MG TABEC PO (08:46)
[2021-11-12] MEDS: Gabapentin 400 MG CAP 800 MG PO ×3 (08:46→19:43)
[2021-11-12] MEDS: Magnesium Oxide 400 MG TAB PO (08:46)
[2021-11-12] MEDS: buPROPion-CR 150 MG TABCR PO ×2 (08:46→19:42)
[2021-11-12] MEDS: Pantoprazole 40 MG TABCR PO (08:46)
[2021-11-12] MEDS: Furosemide 20 MG TAB PO (08:47)
[2021-11-12] MEDS: Topiramate 25 MG TAB 50 MG PO ×2 (08:47→19:42)
--- NOTE | 2021-11-12 09:38 | INITIAL_ITS ---
- If Service Date Differs Date of service: 11/12/21 Time of Service: 09:38 Care Management Initial Assess REASON FOR HOSPITALIZATION:: Atrial fibrillation with RVR and fractured humerus PAST MEDICAL HISTORY/PAST SURGICAL HISTORY:: All Active Problems (Updated 11/12/21 @ 03:52 by Jerson Delarosa). Atrial fibrillation with rapid ventricular response (Acute). Closed left humeral fracture (Acute). Closed fracture of left proximal humerus (Acute 11/11/21). MCL sprain of right knee (Acute). Alcohol abuse (Chronic). Chest discomfort (Chronic). Acute on chronic diastolic heart failure (Acute). Bilateral pleural effusion (Acute). Falls (Acute). Discharge planning issues (Acute). DVT prophylaxis (Acute). Pulmonary nodule (Acute). Hyponatremia (Chronic). Acute respiratory failure with hypoxia (Acute). Acute exacerbation of chronic obstructive pulmonary disease (Acute). Pneumonia (Acute). Acute respiratory distress (Acute). Femur fracture, right (Acute). Fracture, rib (Acute). A-fib (Chronic). Laceration of digital nerve of left thumb (Acute). Gastritis and duodenitis (Acute). Medical History . Alcohol withdrawal. Arthritis. COPD (chronic obstructive pulmonary disease). Depressi on. Hepatitis C. Per H&P: s/p tx. . He had an abc CT earlier this year which showed a normal liver.. Hypertension. Neck fracture. Per pt. states he broke his nevk 5-6 years ago. Upper GI bleed. Varices of esophagus determined by endoscopy. Surgical History . History of cataract surgery. History of cataract surgery. History of hand surgery. History of surgery on wrist PREVIOUS FUNCTIONAL STATUS/SOCIAL/FAMILY SUPPORTS:: Geovani lives alone in an apartment in [place], [place] He was disabled about 10 years ago when he broke his back. 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 He is independent with ADLs and uses a cane for ambulation. CURRENT FUNCTIONAL STATUS:: Geovani was sitting up in bed when met with him. He was polite but guarded in his responses and interactions. He has one son who lives in [place] but he rarely sees him. Geovani fractured his humerus and will require surgery which is planned for Sunday. He has had a lot of pain today, at times rating it as a 10/10, and has been medicated for same. ADVANCE DIRECTIVES:: none on file Has patient been provided with info about the portal/API?: Yes Did the patient sign up for the portal?: No CODE STATUS:: Full Code INSURANCE COVERAGE / FINANCIAL ISSUES:: Medicare. Medicaid CURRENT HOME/COMMUNITY SERVICES/EQUIPMENT:: none PRIMARY CARE PHYSICIAN:: Sherri Guzman POTENTIAL DISCHARGE NEEDS:: follow up with PCP and plan of care PATIENT/FAMILY EDUCATION NEEDS:: Review of discharge instructions, follow up plan, limitations, activity, discuss Ask Me Three TRANSPORTATION:: via private vehicle PLAN:: Anticipate Geovani will be discharged home with no new services. He will follow up with his community providers and plan of care and transport with a friend. CM will support Geovani and his discharge needs.
--- NOTE | 2021-11-12 10:15 | OCONE_ITS ---
Assessment and Plan Assessment and plan (1) Closed fracture of left proximal humerus: Status: Acute Assessment and plan: 66 year old male with highly displaced, complex left proximal humerus fracture Patient describes mechanical fall impacting left shoulder a few days ago. Minor injuries to head and face. Shoulder continued to hurt and swell so presented to the emergency department last night. Admitted to the ICU for atrial fibrillation with rapid ventricular response. States he has overall been doing and feeling well. Minimal alcohol use. Would like his shoulder fixed so that he could have most accelerated recovery and best long-term functional result. Left upper extremity sensory intact to light touch including axillary nerve. 2+ left radial pulse. Regular rate and rhythm. Significant shoulder edema and arm and forearm firm ecchymosis. Able to demonstrate intact motor elbow flexion extension, supination, and wrist and hand motion. No other acute orthopedic extremity injuries. Discussed at length. Fracture unlikely to heal or heal well in current position. ORIF would be extremely challenging given significantly comminuted fracture and expected poor bone quality. Could consider limited suture tension band ORIF of major humeral head shaft fragments restore relatively normal alignment with suture repair tuberosities and rotator cuff versus fracture reverse total shoulder arthroplasty. Concerned about alcohol and nicotine abuse as well as history of multiple orthopedic injuries. Recommend elevation left upper extremity on pillows. 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 Sling on left up per extremity when out of bed or ambulatory. Nonweightbearing no carrying LUE. Discussed with Dr. Slaughter. Patient is improved from cardiac standpoint. Continue medical optimization for probable left shoulder surgery this admission, which I could probably arrange to be done on 11/17 or Saturday 11/18 of next week. I will follow along. Please call me with any questions or concerns about this patient. [facility] All Active Problems (Updated 11/12/21 @ 03:52 by Jerson Delarosa) Atrial fibrillation with rapid ventricular response (Acute) Closed left humeral fracture (Acute) Closed fracture of left proximal humerus (Acute 11/11/21) MCL sprain of right knee (Acute) Alcohol abuse (Chronic) Chest discomfort (Chronic) Acute on chronic diastolic heart failure (Acute) Bilateral pleural effusion (Acute) Falls (Acute) Discharge planning issues (Acute) DVT prophylaxis (Acute) Pulmonary nodule (Acute) Hyponatremia (Chronic) Acute respiratory failure with hypoxia (Acute) Acute exacerbation of chronic obstructive pulmonary disease (Acute) Pneumonia (Acute) Acute respiratory distress (Acute) Femur fracture, right (Acute) Fracture, rib (Acute) A-fib (Chronic) Laceration of digital nerve of left thumb (Acute) Gastritis and duodenitis (Acute) Medical History Alcohol withdrawal Arthritis COPD (chronic obstructive pulmonary disease) Depression Hepatitis C Per H&P: s/p tx. . He had an abc CT earlier this year which showed a normal liver. Hypertension Neck fracture Per pt. states he broke his nevk 5-6 years ago. Upper GI bleed Varices of esophagus determined by endoscopy Surgical History History of cataract surgery History of cataract surgery History of hand surgery History of surgery on wrist Social History Smoking/Tobacco Use Status: Current every day Tobacco Type: cigarettes Smoking risk assessment performed?: Yes Alcohol Intake: current Alcohol Intake frequency: holidays/special occasions only Drug use: Never Substance use type: does not use and unknown Current gender identity: male Do you feel safe at home: Yes Do you feel safe in your relationship?: Yes Additional Social history: lives alone Results Last Vital Signs Pulse 155 H 11/11/21 18:26 Resp 23 11/11/21 16:58 BP 129/84 11/11/21 18:26 Pulse Ox 92 11/11/21 16:58 Labs Result diagrams: 11/12/21 05:30 11/12/21 05:30 Labs: Laboratory Results - last 24 hr 11/11/21 11/11/21 11/11/21 17:43 17:43 17:43 WBC 11.83 H RBC 4.06 L Hgb 13.2 L Hct 38.6 L MCV 95 MCH 32.5 MCHC 34.2 RDW 12.4 Plt Count 424 H MPV Immature Gran % 0.8 Neutrophils % 70.7 Lymphocytes % 16.6 Monocytes % 10.4 Eosinophils % 0.7 Basophils % 0.8 Nucleated RBC % 0.0 Absolute Neutrophils 8.36 H Absolute Lymphocytes 1.96 Absolute Monocytes 1.23 H Absolute Eosinophils 0.08 Absolute Basophils 0.09 RBC Morphology Normal PT 9.9 INR 1.0 APTT 22.8 Sodium 134 L Potassium 4.0 Chloride 98 Carbon Dioxide 30.3 Anion Gap 5.7 BUN 7 Creatinine 1.2 Est GFR (CKD-EPI 2020) 66.70 Glucose 105 Calcium 8.9 Magnesium 1.8 Total Bilirubin 0.9 AST 21 ALT 22 Alkaline Phosphatase 102 Troponin I < 50 Total Protein 7.7 Albumin 2.9 L
[2021-11-12] MEDS: Propranolol 80 MG CAPCR 160 MG PO (10:18)
[2021-11-12] MEDS: Tiotropium/Olodaterol 10 PUFF INHALER 2 PUFF IH (10:27)
--- NOTE | 2021-11-12 15:14 | W.PM.PROGNOT ---
Date of Service Date of service: 11/12/21 Time of Service: 15:14 Assessment and Plan Assessment and plan (1) Atrial fibrillation with rapid ventricular response: Start date: 11/11/21 Status: Acute Assessment and plan: This is a 66-year-old gentleman who has rapid ventricular sponsor is atrial fibrillation requiring IV diltiazem for rate control. Possibly secondary to pain from left humerus fx. Now off cardizem drip. Now med-surg status His home verapamil and propanolol initiated. Titrate verapamil if needed. Troponin neg x2. Not on anticoagulation therapy. (2) Alcohol abuse: Status: Chronic Assessment and plan: Previous history. (3) Closed left humeral fracture: Start date: 11/11/21 Status: Acute Assessment and plan: Comminuted and complicated with orthopedic consulted. Planning surgical repair this coming Sunday, 11/14. Pain managment. Add baclofen; stop flexeril. (4) Hyponatremia: Status: Chronic Assessment and plan: Mild at 134 on admission; now 136. Subjective Subjective Patient reports: no new complaints, tolerating liquids well and afebrile; denies nausea, vomiting or shortness of breath Exam Narrative Exam Narrative: General: Sitting in chair. Pleasant and cooperative. . Lung: Clear but mildly diminished. Heart: Irreg Irreg. No murmur Abdomen: Normal contour, soft nontender Extremities: Left shoulder with swelling and bruising with tenderness and inability to do range of motion. Swelling extends into arm and forearm with bruising with adequate pulses left arm. Nonpitting edema over feet and ankles. Right shoulder slightly tender but no swelling. Skin: Bruising of the left side, normal color, warm and dry. No rashes Neuro: no focal motor deficits. Psych: Affect appropriate. Mentation normal/speech normal. Objective Last Vital Signs Temp 36.6 C 11/12/21 14:46 Pulse 70 11/12/21 14:46 Resp 17 11/12/21 14:46 BP 108/69 11/12/21 14:46 Pulse Ox 95 11/12/21 14:46 Laboratory Results - last 24 hr 11/11/21 11/11/21 11/11/21 17:43 17:43 17:43 WBC 11.83 H RBC 4.06 L Hgb 13.2 L Hct 38.6 L MCV 95 MCH 32.5 MCHC 34.2 RDW 12.4 Plt Count 424 H MPV Immature Gran % 0.8 Neutrophils % 70.7 Lymphocytes % 16.6 Monocytes % 10.4 Eosinophils % 0.7 Basophils % 0.8 Nucleated RBC % 0.0 Absolute Neutrophils 8.36 H Absolute Lymphocytes 1.96 Absolute Monocytes 1.23 H Absolute Eosinophils 0.08 Absolute Basophils 0.09 RBC Morphology Normal PT 9.9 INR 1.0 APTT 22.8 Sodium 134 L Potassium 4.0 Chloride 98 Carbon Dioxide 30.3 Anion Gap 5.7 BUN 7 Creatinine 1.2 Est GFR (CKD-EPI 2020) 66.70 Glucose 105 Calcium 8.9 Magnesium 1.8 Total Bilirubin 0.9 AST 21 ALT 22 Alkaline Phosphatase 102 Troponin I < 50 Total Protein 7.7 Albumin 2.9 L TSH Free T4 COVID-19 Source SARS-CoV-2 (PCR) 11/11/21 11/11/21 11/11/21 18:54 19:40 20:25 WBC RBC Hgb Hct MCV MCH MCHC RDW Plt Count MPV Immature Gran % Neutrophils % Lymphocytes % Monocytes % Eosinophils % Basophils % Nucleated RBC % Absolute Neutrophils Absolute Lymphocytes Absolute Monocytes Absolute Eosinophils Absolute Basophils RBC Morphology PT INR APTT Sodium Potassium Chloride Carbon Dioxide Anion Gap BUN Creatinine Est GFR (CKD-EPI 2020) Glucose Calcium Magnesium Total Bilirubin AST ALT Alkaline Phosphatase Troponin I Cancelled < 50 Total Protein Albumin TSH Cancelled Free T4 COVID-19 Source Nasal/Nares SARS-CoV-2 (PCR) Negative 11/11/21 11/12/21 11/12/21 21:54 05:30 05:30 WBC 9.09 RBC 3.84 L Hgb 12.5 L Hct 37.8 L MCV 98 H MCH 32.6 MCHC 33.1 RDW 12.6 Plt Count 330 MPV 10.3 Immature Gran % 1.0 Neutrophils % 57.4 Lymphocytes % 25.6 Monocytes % 12.9 Eosinophils % 2.0 Basophils % 1.1 Nucleated RBC % 0.0 Absolute Neutrophils 5.22 Absolute Lymphocytes 2.33 Absolute Monocytes 1.17 H Absolute Eosinophils 0.18 Absolute Basophils 0.10 RBC Morphology PT INR APTT Sodium 136 Potassium 3.9 Chloride 100 Carbon Dioxide 30.7 Anion Gap 5.3 BUN 7 Creatinine 1.3 Est GFR (CKD-EPI 2020) 60.59 Glucose 102 Calcium 8.7 Magnesium 1.8 Total Bilirubin 0.9 AST 28 ALT 20 Alkaline Phosphatase 91 Troponin I Cancelled Total Protein 7.0 Albumin 2.6 L TSH 3.88 H Free T4 1.53 H COVID-19 Source SARS-CoV-2 (PCR)
[2021-11-12] MEDS: Baclofen 10 MG TAB PO ×2 (16:31→19:42)
[2021-11-12] MEDS: Enoxaparin 40 MG/0.4 ML SYR SC (19:42)
[2021-11-12] MEDS: Terazosin 2 MG CAP PO (19:42)
[2021-11-13] VITALS (8 sets, daily range): BP systolic 106–125; BP diastolic 64–86; PULSE 62–90; RESP 16–20; TEMP 36.2–36.8; O2SAT 93–97; BMI 26.6
[2021-11-13] MEDS: HYDROcodone 10/Acetaminophen 325 TAB PO (03:39)
[2021-11-13 06:55] LABS: Abs Immature Grans 0.11 10^3/uL (0.0-0.06); Absolute Eosinophil Count 0.23 10^3/uL (0.0-0.7); Absolute Lymphocyte Count 1.95 10^3/uL (1.2-3.4); Absolute Neutrophil Count 7.74 10^3/uL (1.2-6.7); Basophils % 0.9; HCT 35.8 % (40.0-50.0); HGB 11.6 g/dL (13.5-17.5); Lymphocytes % 17.3; MCH 32.3 pg (27.0-33.0); MCHC 32.4 % (32.0-36.0); MCV 100 fL (80-95); MPV 9.8 fL (8.0-11.0); Neutrophils % 68.8; Platelet Count 356 10^3/uL (130-400); RBC 3.59 10^6/uL (4.36-5.78); RDW 12.2 % (11.8-14.1); WBC 11.25 10^3/uL (4.4-10.8)
[2021-11-13 06:56] LABS: Absolute Monocyte Count 1.13 10^3/uL (0.1-0.8)
[2021-11-13 07:19] LABS: Anion Gap 5.9 mmol/L (3-11); BUN 10 mg/dL (7-18); CO2 31.1 mmol/L (21.0-32.0); CREATININE 1.6 mg/dL (0.70-1.30); Calcium 9.1 mg/dL (8.5-10.1); Chloride 97 mmol/L (98-107); Estimated GFR 47.23 (mL/min/1.73m2); Glucose 98 mg/dL (74-106); Potassium 4.4 mmol/L (3.5-5.1); Sodium 134 mmol/L (136-145)
[2021-11-13] MEDS: Tiotropium/Olodaterol 10 PUFF INHALER 2 PUFF IH (07:42)
[2021-11-13] MEDS: Propranolol 80 MG CAPCR 160 MG PO (08:05)
[2021-11-13] MEDS: Pantoprazole 40 MG TABCR PO (08:05)
[2021-11-13] MEDS: Magnesium Oxide 400 MG TAB PO (08:05)
[2021-11-13] MEDS: Topiramate 25 MG TAB 50 MG PO ×2 (08:05→20:14)
[2021-11-13] MEDS: Citalopram 20 MG TAB PO (08:06)
[2021-11-13] MEDS: Furosemide 20 MG TAB PO (08:06)
[2021-11-13] MEDS: Gabapentin 400 MG CAP 800 MG PO ×3 (08:06→20:14)
[2021-11-13] MEDS: buPROPion-CR 150 MG TABCR PO ×2 (08:06→20:14)
[2021-11-13] MEDS: Baclofen 10 MG TAB PO ×3 (08:06→20:14)
[2021-11-13] MEDS: Aspirin E.C. 81 MG TABEC PO (08:06)
[2021-11-13] MEDS: Acetaminophen 325 MG TAB PO (08:08)
--- NOTE | 2021-11-13 09:54 | PT.INNT ---
PT Notes Visit Reasons: Atrial Fibrillation RVR, Fractured Humerus Per communication with head nurse and MD, PT eval to wait until after surgery.
--- NOTE | 2021-11-13 11:47 | W.ANESCON ---
General Date of Service Date of Service: 11/13/21 Reason for Consult Requesting Provider: Eh Hastings How Consult Conducted:: Chart Review Reason for Consult:: Review of patient prior to left shoulder replacement on Sunday Consult Recommendation after Review:: Patient has had several anesthetics with us and is cleared to proceed at this time. I discussed patient history both recent and remote with the patient at the bedside. Chest pain in ER with this admisstion, found to be in rapid AFib, treated in ICU and transferred to floor. ER and Hospitalist trended troponins which were negative. Height: 5 ft 10 in Weight: 84.2 kg Body Mass Index (BMI): 26.6 Meds Allergies and Home Medications Allergies Allergy/AdvReac Type Severity Reaction Status Date / Time amlodipine Allergy Unknown Unverified 11/11/21 17:07 trazodone Allergy Unknown Unverified 11/11/21 17:07 diazepam AdvReac Intermediate Agitation Unverified 11/11/21 17:07 clonidine AdvReac Mild Dry mouth Unverified 11/11/21 17:07 lisinopril AdvReac Mild Cough Unverified 11/11/21 17:07 losartan AdvReac Mild Cough Unverified 11/11/21 17:07 tramadol AdvReac Nauseous Unverified 11/11/21 17:07 Home Medication Medication Instructions Recorded bupropion HCl 150 mg tablet,12 hr 150 mg PO BID ##30 11/23/14 sustained-release (Wellbutrin SR) citalopram 20 mg tablet 20 mg PO QAM #30 tabs 11/23/14 cyclobenzaprine 10 mg tablet 10 mg PO TID PRN 11/06/15 albuterol sulfate 90 mcg/actuation 2 puff inhalation Q6H PRN 09/24/19 aerosol inhaler pantoprazole 40 mg tablet,delayed 40 mg PO DAILY 09/24/19 release famotidine 20 mg tablet 20 mg PO DAILY 12/08/19 magnesium oxide 400 mg (241.3 mg 400 mg PO DAILY 12/08/19 magnesium) tablet sumatriptan succinate 50 mg tablet See Rx Instructions PO .COMPLEX 12/08/19 aspirin 81 mg tablet,delayed 81 mg PO DAILY 01/22/20 release diclofenac sodium 1 % topical gel 4 g topical BID PRN 01/22/20 gabapentin 800 mg tablet 800 mg PO TID 01/22/20 glycopyrrolate 9 mcg-formoterol 2 puff inhalation BID 01/22/20 4.8 mcg HFA aerosol inhaler (Bevespi Aerosphere) hydrocodone 10 mg-acetaminophen 1 tab PO BID PRN 01/22/20 325 mg tablet polyethylene glycol 3350 17 gram 17 g PO DAILY PRN 01/22/20 oral powder packet propranolol 160 mg capsule,24 160 mg PO DAILY 01/22/20 hr,extended release terazosin 1 mg tablet 2 mg PO HS 01/22/20 topiramate 50 mg tablet 50 mg PO BID 01/22/20 triamcinolone acetonide 0.1 % 1 applic topical BID 01/22/20 topical cream verapamil 120 mg tablet,extended 120 mg PO DAILY 01/22/20 release lidocaine 5 % topical ointment 1 applic topical QID PRN 02/10/21 zolpidem 10 mg tablet 10 mg PO HS PRN 02/10/21 furosemide 20 mg tablet 20 mg PO DAILY #3 tabs 02/11/21 Current Visit Medications: Current Medications Generic Name Dose Route Start Last Admin Trade Name Freq PRN Reason Stop Dose Admin Acetaminophen 0 mg 11/11/21 18:53 11/13/21 08:08 Acetaminophen 325 Mg Tab PO 650 mg Q4H PRN PRN Administration Al Hydrox/Mg Hydrox/Simethicone 30 ml 11/11/21 18:53 Mylanta Suspension 30 Ml Cup PO Q2H PRN PRN Albuterol Sulfate 2.5 mg 11/11/21 18:48 11/12/21 05:20 Albuterol 2.5 Mg/3 Ml Inh Soln Vial UPD 2.5 mg Q2H PRN PRN Administration Aspirin 81 mg 11/12/21 08:30 11/13/21 08:06 Aspirin E.C. 81 Mg Tabec PO 81 mg DAILY PRICILAL Administration Baclofen 10 mg 11/12/21 15:45 11/13/21 08:06 Baclofen 10 Mg Tab PO 10 mg TID PRICILLA Administration Bupropion HCl 150 mg 11/11/21 20:00 11/13/21 08:06 Bupropion-Cr 150 Mg Tabcr PO 150 mg BID PRICILLA Administration Citalopram Hydrobromide 20 mg 11/12/21 08:30 11/13/21 08:06 Citalopram 20 Mg Tab PO 20 mg QAM PRICILLA Administration Dimethicone/Zinc Oxide 0 gm 11/11/21 18:48 Mery Protect Cream 142 Gm Tube TP PRN PRN Docusate Sodium 100 mg 11/11/21 18:48 Docusate Sodium 100 Mg Cap PO TID PRN PRN Enoxaparin Sodium 40 mg 11/11/21 21:00 11/12/21 19:42 Enoxaparin 40 Mg/0.4 Ml Syr SC 40 mg Q24H PRICILLA Administration Furosemide 20 mg 11/12/21 08:30 11/13/21 08:06 Furosemide 20 Mg Tab PO 20 mg DAILY PRICILLA Administration Gabapentin 800 mg 11/11/21 23:00 11/13/21 08:06 Gabapentin 400 Mg Cap PO 800 mg TID PRICILLA Administration Hydromorphone HCl 1 mg 11/12/21 03:20 11/12/21 15:36 Hydromorphone 2 Mg/Ml Syr IVP 1 mg Q4H PRN PRN Administration Cefazolin Sodium/Dextrose 2 gm in 50 mls @ 100 mls/hr 11/14/21 11:00 Ancef Duplex IVPB PREOP PRICILLA IV Miscellaneous Supplies 1 each 11/11/21 17:15 Iv Access IV DIRECTED PRICILLA Lidocaine 0 gm 11/11/21 20:58 11/11/21 23:35 Lidocaine 4% Cream 5 Gm Tube TP 5 gm QID PRN Administration PAIN Magnesium Hydroxide 30 ml 11/11/21 18:48 Milk Of Magnesia 30 Ml Cup PO DAILY PRN PRN Magnesium Oxide 400 mg 11/12/21 08:30 11/13/21 08:05 Magnesium Oxide 400 Mg Tab PO 400 mg DAILY PRICILLA Administration Oxycodone HCl 10 mg 11/13/21 11:00 Oxycodone 10 Mg Tab PO Q4H PRN PRN Pantoprazole Sodium 40 mg 11/12/21 08:30 11/13/21 08:05 Pantoprazole 40 Mg Tabcr PO 40 mg DAILY PRICILLA Administration Polyethylene Glycol 17 gm 11/11/21 18:48 Polyethylene Glycol 3350 17 Gm Packet PO DAILY PRN PRN Constipation Propranolol HCl 160 mg 11/12/21 10:00 11/13/21 08:05 Propranolol 80 Mg Capcr PO 160 mg DAILY PRICILLA Administration Sodium Chloride 0 ml 11/11/21 17:04 11/12/21 05:13 Normal Saline Flush 10 Ml Syr IVP 20 ml PRN PRN Administration Sumatriptan Succinate 0 mg 11/11/21 19:00 Sumatriptan 50 Mg Tab PO .COMPLEX PRN MIGRAINE Terazosin HCl 2 mg 11/11/21 22:00 11/12/21 19:42 Terazosin 2 Mg Cap PO 2 mg HS PRICILLA Administration Tiotropium [place]/Olodaterol 2 puff 11/12/21 08:30 11/13/21 07:42 Tiotropium/Olodaterol 10 Puff Inhaler IH 2 puffs DAILY PRICILLA Administration Topiramate 50 mg 11/12/21 08:30 11/13/21 08:05 Topiramate 25 Mg Tab PO 50 mg BID PRICILLA Administration Verapamil HCl 120 mg 11/12/21 10:00 11/13/21 08:05 Verapamil C.R. 120 Mg Tabcr PO 120 mg DAILY PRICILLA Administration Zolpidem Tartrate 10 mg 11/11/21 21:15 Zolpidem 5 Mg Tab PO HS PRN PRN SLEEP PFSH Active Problems Active Problems: Problem Status Onset Code Atrial fibrillation with rapid ventricular response I48.91 Closed left humeral fracture S42.302A Closed fracture of left proximal humerus 11/11/21 S42.202A MCL sprain of right knee S83.411A Alcohol abuse F10.10 Chest discomfort R07.89 Acute on chronic diastolic heart failure I50.33 Bilateral pleural effusion J90 Falls W19.XXXA Discharge planning issues Z02.9 DVT prophylaxis Z29.9 H/O fracture of femur Z87.81 Pulmonary nodule R91.1 Acute respiratory failure with hypoxia and hypercapnia J96.01, J96.02 Hyponatremia E87.1 Acute respiratory failure with hypoxia J96.01 Acute exacerbation of chronic obstructive pulmonary disease J44.1 Pneumonia J18.9 Acute respiratory distress R06.03 Femur fracture, right S72.91XA Fracture, rib S22.39XA A-fib I48.91 Nuclear sclerotic cataract of right eye H25.11 Laceration of digital nerve of left thumb S64.32XA Nuclear sclerotic cataract of left eye H25.12 Gastritis and duodenitis K29.90 Medical History Medical History Alcohol withdrawal Arthritis COPD (chronic obstructive pulmonary disease) Depression Hepatitis C Per H&P: s/p tx. . He had an abc CT earlier this year which showed a normal liver. Hypertension Neck fracture Per pt. states he broke his nevk 5-6 years ago. Upper GI bleed Varices of esophagus determined by endoscopy Surgical History Surgical History History of cataract surgery History of cataract surgery History of hand surgery History of surgery on wrist Tobacco Smoking/Tobacco Use Status: Current every day Tobacco Type: cigarettes Smoking cigarettes per day: 10 Alcohol Alcohol Intake: current Alcohol intake frequency: holidays/special occasions only Substance Use Substance use: Never Substance use type: does not use and unknown Vital Signs & Lab Results Vital Signs Most Recent Vital Signs: Most Recent Vital Signs Temp Pulse Resp BP Pulse Ox 36.7 C 82 19 121/86 97 11/13/21 07:15 11/13/21 08:00 11/13/21 07:15 11/13/21 07:15 11/13/21 07:15 Point of Care Results Nursing Point of Care Results: No Data to Display Lab Results Result Diagrams: 11/13/21 06:30 11/13/21 06:30 Blood Type / Crossmatch: No Data to Display Complete Blood Count: White Blood Count 11.25 10^3/uL (4.4-10.8) H 11/13/21 06:30 Red Blood Count 3.59 10^6/uL (4.36-5.78) L 11/13/21 06:30 Hemoglobin 11.6 g/dL (13.5-17.5) L 11/13/21 06:30 Hematocrit 35.8 % (40.0-50.0) L 11/13/21 06:30 Platelet Count 356 10^3/uL (130-400) 11/13/21 06:30 Complete Metabolic Panel: Sodium Level 134 mmol/L (136-145) L 11/13/21 06:30 Potassium Level 4.4 mmol/L (3.5-5.1) 11/13/21 06:30 Chloride Level 97 mmol/L (98-107) L 11/13/21 06:30 Carbon Dioxide Level 31.1 mmol/L (21.0-32.0) 11/13/21 06:30 Blood Urea Nitrogen 10 mg/dL (7-18) 11/13/21 06:30 Creatinine 1.6 mg/dL (0.70-1.30) H 11/13/21 06:30 Magnesium Level 1.8 mg/dL (1.8-2.4) 11/12/21 05:30 Calcium Level 9.1 mg/dL (8.5-10.1) 11/13/21 06:30 Albumin 2.6 g/dL (3.4-5.0) L 11/12/21 05:30 Glucose Level 98 mg/dL (74-106) 11/13/21 06:30 Liver Function Panel: Alanine Aminotransferase (ALT/SGPT) 20 U/L (16-63) 11/12/21 05:30 Aspartate Amino Transf (AST/SGOT) 28 U/L (15-37) 11/12/21 05:30 Coagulation Panel: INR International Normalized Ratio 1.0 (0.9-1.1) 11/11/21 17:43 Prothrombin Time 9.9 sec (9.3-11.0) 11/11/21 17:43 Activated Partial Thromboplast Time 22.8 sec (21.0-27.5) 11/11/21 17:43 Cardiac Panel: Troponin I < 50 ng/L (<or=60) 11/11/21 Arterial Blood Gas: No Data to Display Venous Blood Gas: No Data to Display Pancreas Panel: No Data to Display Thyroid Panel: Thyroid Stimulating Hormone (TSH) 3.88 uIU/mL (0.36-3.74) H 11/12/21 05:30 Infectious Disease: Coronavirus (COVID-19)(PCR) Negative (Negative) 11/11/21 19:40 Coronavirus 2019 Source Nasal/Nares 11/11/21 19:40 Blood Cultures: No Data to Display Toxicology Panel: No Data to Display Imaging and Studies Imaging and Studies EKG Summary: 11/11/21 Exam: Resting ECG Reason for Exam: CHEST PAIN Patient Location: E HR:164 bpm ECG Measurements Heart Rate 164 AXIS OR [id number] P [id number] QRSd 102 QRS 5 QT 279 T34 QTc 466 Conclusion Atrial fibrillation with rapid V-rate...A-rate 454 Echocardiogram Summary: 02/10/2021 Conclusion Normal left ventricular wall thickness and chamber size. Estimated ejection fraction is 55%. Wall motion is normal Normal right ventricular size and systolic function Both atria are moderately dilated There are no structural valvular abnormalities Trace to mild mitral regurgitation Mild tricuspid regurgitation Estimated right ventricular systolic pressure is 37 mmHg Compared to the echocardiogram of January 2020, atrial sizes have increased and right ventricular systolic pressure has gone from 20 to 37 mmHg Anesthesia Assessment and Plan Anesthesia History Personal History: Other (Reports some aggitation with his last cataract removal (states reaction to diazepam)) Family History: No Family History of Anesthesia Complications Exercise Tolerance Exercise Tolerance: Metabolic Equivalents>4 Pertinent Negatives Pertinent Negatives: No Symptoms of GERD and No History of CVA/TIA Cardiac & Pulmonary Exam Cardiac Exam: Normal S1/S2 Heart Sounds Pulmonary Exam: Active Dry Cough ASA Classification ASA Score: ASA 3 Anesthesia Plan Resuscitation Status: Full Code
[2021-11-13] MEDS: oxyCODONE 10 MG TAB PO ×2 (13:40→21:57)
--- NOTE | 2021-11-13 14:02 | W.PM.PROGNOT ---
Date of Service Date of service: 11/13/21 Time of Service: 14:02 Assessment and Plan Assessment and plan (1) Atrial fibrillation with rapid ventricular response: Start date: 11/11/21 Status: Acute Assessment and plan: This is a 66-year-old gentleman who has rapid ventricular sponsor is atrial fibrillation requiring IV diltiazem for rate control. Possibly secondary to pain from left humerus fx. Now off cardizem drip. Now med-surg status His home verapamil and propanolol initiated. Ventricular rate controlled. Troponin neg x2. Not on anticoagulation therapy. (2) Alcohol abuse: Status: Chronic Assessment and plan: Previous history. (3) Closed left humeral fracture: Start date: 11/11/21 Status: Acute Assessment and plan: Comminuted and complicated with orthopedic consulted. Planning surgical repair this coming Sunday, 11/14. Pain managment inadequate per pt. D/C hydrocodone and begin oxycodone 10mg po [id number] prn. Cont prn hydromorphone. Encourage oxycodone. Cont baclofen. (4) Hyponatremia: Status: Chronic Assessment and plan: Mild at 134 on admission; improved to 136 and now 134 again. Subjective Subjective Patient reports: still having pain (sharp, stabbing in R proximal arm), tolerating a regular diet and afebrile; denies nausea or vomiting Exam Narrative Exam Narrative: General: Lying in bed. Pleasant and cooperative. . Lung: Clear but mildly diminished. Heart: Irreg Irreg. No murmur Abdomen: soft, nontender Extremities: Left shoulder with swelling and bruising with tenderness and inability to do range of motion. Swelling extends into arm and forearm (mildly diminished) with bruising with adequate pulses left arm. Nonpitting edema over feet and ankles. Right shoulder slightly tender but no swelling. Skin: Bruising of the left side. No rashes Neuro: no focal motor deficits. Psych: Affect appropriate. Mentation normal/speech normal. Objective Last Vital Signs Temp 36.8 C 11/13/21 12:23 Pulse 86 11/13/21 12:23 Resp 18 11/13/21 12:23 BP 107/74 11/13/21 12:23 Pulse Ox 95 11/13/21 12:23 Laboratory Results - last 24 hr 11/13/21 11/13/21 06:30 06:30 WBC 11.25 H RBC 3.59 L Hgb 11.6 L Hct 35.8 L MCV 100 H MCH 32.3 MCHC 32.4 RDW 12.2 Plt Count 356 MPV 9.8 Immature Gran % 1.0 Neutrophils % 68.8 Lymphocytes % 17.3 Monocytes % 10.0 Eosinophils % 2.0 Basophils % 0.9 Nucleated RBC % 0.0 Absolute Neutrophils 7.74 H Absolute Lymphocytes 1.95 Absolute Monocytes 1.13 H Absolute Eosinophils 0.23 Absolute Basophils 0.10 Sodium 134 L Potassium 4.4 Chloride 97 L Carbon Dioxide 31.1 Anion Gap 5.9 BUN 10 Creatinine 1.6 H Est GFR (CKD-EPI 2020) 47.23 Glucose 98 Calcium 9.1
[2021-11-13] MEDS: Terazosin 2 MG CAP PO (21:56)
[2021-11-14] VITALS (16 sets, daily range): BP systolic 97–178; BP diastolic 49–102; PULSE 65–107; RESP 12–20; TEMP 36–36.9; O2SAT 90–100; BMI 26.2
[2021-11-14] MEDS: Normal Saline Flush 10 ML SYR IVP ×3 (04:07→20:05)
[2021-11-14 06:23] LABS: Abs Immature Grans 0.08 10^3/uL (0.0-0.06); Absolute Basophil Count 0.06 10^3/uL (0.0-0.2); Absolute Eosinophil Count 0.17 10^3/uL (0.0-0.7); Absolute Lymphocyte Count 1.29 10^3/uL (1.2-3.4); Absolute Neutrophil Count 8.46 10^3/uL (1.2-6.7); Basophils % 0.5; Eosinophils % 1.5; HCT 34.1 % (40.0-50.0); HGB 11.4 g/dL (13.5-17.5); Immature Grans % 0.7; Lymphocytes % 11.4; MCH 32.8 pg (27.0-33.0); MCHC 33.4 % (32.0-36.0); MCV 98 fL (80-95); MPV 10.3 fL (8.0-11.0); Monocytes % 11.1; Neutrophils % 74.8; Platelet Count 312 10^3/uL (130-400); RBC 3.48 10^6/uL (4.36-5.78); RDW 12.5 % (11.8-14.1); RDW-SD 44.6 fL; WBC 11.31 10^3/uL (4.4-10.8)
[2021-11-14 06:24] LABS: Absolute Monocyte Count 1.26 10^3/uL (0.1-0.8)
[2021-11-14 06:30] LABS: Anion Gap 6.3 mmol/L (3-11); BUN 15 mg/dL (7-18); CO2 29.7 mmol/L (21.0-32.0); CREATININE 1.6 mg/dL (0.70-1.30); Calcium 9.1 mg/dL (8.5-10.1); Chloride 101 mmol/L (98-107); Estimated GFR 47.23 (mL/min/1.73m2); Glucose 89 mg/dL (74-106); Potassium 4.5 mmol/L (3.5-5.1); Sodium 137 mmol/L (136-145)
[2021-11-14] MEDS: Tiotropium/Olodaterol 10 PUFF INHALER 2 PUFF IH (07:56)
[2021-11-14] MEDS: HYDROmorphone 2 MG/ML SYR 1 MG IVP (07:58)
[2021-11-14] MEDS: Pantoprazole 40 MG TABCR PO (09:01)
[2021-11-14] MEDS: Gabapentin 400 MG CAP 800 MG PO ×2 (09:01→20:05)
[2021-11-14] MEDS: Baclofen 10 MG TAB PO ×2 (09:01→20:04)
[2021-11-14] MEDS: Propranolol 80 MG CAPCR 160 MG PO (09:01)
--- NOTE | 2021-11-14 09:16 | W.ANESPRE ---
General Info Date of Service Date Performed: 11/14/21 Height: 5 ft 10 in Weight: 82.7 kg Body Mass Index (BMI): 26.2 Surgical Procedure: Operation Date: 11/14/21 11:10 Proposed Procedure Side Surgeon p Reverse Shoulder Total Arthroplasty Left Eh Hastings MD Meds Allergies and Home Medications Allergies Allergy/AdvReac Type Severity Reaction Status Date / Time amlodipine Allergy Unknown Unverified 11/11/21 17:07 trazodone Allergy Unknown Unverified 11/11/21 17:07 diazepam AdvReac Intermediate Agitation Unverified 11/11/21 17:07 clonidine AdvReac Mild Dry mouth Unverified 11/11/21 17:07 lisinopril AdvReac Mild Cough Unverified 11/11/21 17:07 losartan AdvReac Mild Cough Unverified 11/11/21 17:07 tramadol AdvReac Nauseous Unverified 11/11/21 17:07 Home Medication Medication Instructions Recorded bupropion HCl 150 mg tablet,12 hr 150 mg PO BID ##30 11/23/14 sustained-release (Wellbutrin SR) citalopram 20 mg tablet 20 mg PO QAM #30 tabs 11/23/14 cyclobenzaprine 10 mg tablet 10 mg PO TID PRN 11/06/15 albuterol sulfate 90 mcg/actuation 2 puff inhalation Q6H PRN 09/24/19 aerosol inhaler pantoprazole 40 mg tablet,delayed 40 mg PO DAILY 09/24/19 release famotidine 20 mg tablet 20 mg PO DAILY 12/08/19 magnesium oxide 400 mg (241.3 mg 400 mg PO DAILY 12/08/19 magnesium) tablet sumatriptan succinate 50 mg tablet See Rx Instructions PO .COMPLEX 12/08/19 aspirin 81 mg tablet,delayed 81 mg PO DAILY 01/22/20 release diclofenac sodium 1 % topical gel 4 g topical BID PRN 01/22/20 gabapentin 800 mg tablet 800 mg PO TID 01/22/20 glycopyrrolate 9 mcg-formoterol 2 puff inhalation BID 01/22/20 4.8 mcg HFA aerosol inhaler (Bevespi Aerosphere) hydrocodone 10 mg-acetaminophen 1 tab PO BID PRN 01/22/20 325 mg tablet polyethylene glycol 3350 17 gram 17 g PO DAILY PRN 01/22/20 oral powder packet propranolol 160 mg capsule,24 160 mg PO DAILY 01/22/20 hr,extended release terazosin 1 mg tablet 2 mg PO HS 01/22/20 topiramate 50 mg tablet 50 mg PO BID 01/22/20 triamcinolone acetonide 0.1 % 1 applic topical BID 01/22/20 topical cream verapamil 120 mg tablet,extended 120 mg PO DAILY 01/22/20 release lidocaine 5 % topical ointment 1 applic topical QID PRN 02/10/21 zolpidem 10 mg tablet 10 mg PO HS PRN 02/10/21 furosemide 20 mg tablet 20 mg PO DAILY #3 tabs 02/11/21 Current Visit Medications: Current Medications Generic Name Dose Route Start Last Admin Trade Name Freq PRN Reason Stop Dose Admin Acetaminophen 0 mg 11/11/21 18:53 11/13/21 08:08 Acetaminophen 325 Mg Tab PO 650 mg Q4H PRN PRN Administration Al Hydrox/Mg Hydrox/Simethicone 30 ml 11/11/21 18:53 Mylanta Suspension 30 Ml Cup PO Q2H PRN PRN Albuterol Sulfate 2.5 mg 11/11/21 18:48 11/12/21 05:20 Albuterol 2.5 Mg/3 Ml Inh Soln Vial UPD 2.5 mg Q2H PRN PRN Administration Aspirin 81 mg 11/12/21 08:30 11/13/21 08:06 Aspirin E.C. 81 Mg Tabec PO 81 mg DAILY PRICILLA Administration Baclofen 10 mg 11/12/21 15:45 11/14/21 09:01 Baclofen 10 Mg Tab PO 10 mg TID PRICILLA Administration Bupropion HCl 150 mg 11/11/21 20:00 11/14/21 09:03 Bupropion-Cr 150 Mg Tabcr PO Not Given BID PRICILLA Citalopram Hydrobromide 20 mg 11/12/21 08:30 11/13/21 08:06 Citalopram 20 Mg Tab PO 20 mg QAM PRICILLA Administration Dimethicone/Zinc Oxide 0 gm 11/11/21 18:48 Mery Protect Cream 142 Gm Tube TP PRN PRN Docusate Sodium 100 mg 11/11/21 18:48 Docusate Sodium 100 Mg Cap PO TID PRN PRN Enoxaparin Sodium 40 mg 11/11/21 21:00 11/12/21 19:42 Enoxaparin 40 Mg/0.4 Ml Syr SC 40 mg Q24H PRICILLA Administration Furosemide 20 mg 11/12/21 08:30 11/13/21 08:06 Furosemide 20 Mg Tab PO 20 mg DAILY PRICILLA Administration Gabapentin 800 mg 11/11/21 23:00 11/14/21 09:01 Gabapentin 400 Mg Cap PO 800 mg TID PRICILLA Administration Hydromorphone HCl 1 mg 11/12/21 03:20 11/14/21 07:58 Hydromorphone 2 Mg/Ml Syr IVP 1 mg Q4H PRN PRN Administration Cefazolin Sodium/Dextrose 2 gm in 50 mls @ 100 mls/hr 11/14/21 11:00 Ancef Duplex IVPB PREOP PRICILLA IV Miscellaneous Supplies 1 each 11/11/21 17:15 Iv Access IV DIRECTED PRICILLA Lidocaine 0 gm 11/11/21 20:58 11/11/21 23:35 Lidocaine 4% Cream 5 Gm Tube TP 5 gm QID PRN Administration PAIN Magnesium Hydroxide 30 ml 11/11/21 18:48 Milk Of Magnesia 30 Ml Cup PO DAILY PRN PRN Magnesium Oxide 400 mg 11/12/21 08:30 11/13/21 08:05 Magnesium Oxide 400 Mg Tab PO 400 mg DAILY PRICILLA Administration Oxycodone HCl 10 mg 11/13/21 11:00 11/13/21 21:57 Oxycodone 10 Mg Tab PO 10 mg Q4H PRN PRN Administration Pantoprazole Sodium 40 mg 11/12/21 08:30 11/14/21 09:01 Pantoprazole 40 Mg Tabcr PO 40 mg DAILY PRICILLA Administration Polyethylene Glycol 17 gm 11/11/21 18:48 Polyethylene Glycol 3350 17 Gm Packet PO DAILY PRN PRN Constipation Propranolol HCl 160 mg 11/12/21 10:00 11/14/21 09:01 Propranolol 80 Mg Capcr PO 160 mg DAILY PRICILLA Administration Sodium Chloride 0 ml 11/11/21 17:04 11/14/21 07:59 Normal Saline Flush 10 Ml Syr IVP 10 ml PRN PRN Administration Sumatriptan Succinate 0 mg 11/11/21 19:00 Sumatriptan 50 Mg Tab PO .COMPLEX PRN MIGRAINE Terazosin HCl 2 mg 11/11/21 22:00 11/13/21 21:56 Terazosin 2 Mg Cap PO 2 mg HS PRICILLA Administration Tiotropium [place]/Olodaterol 2 puff 11/12/21 08:30 11/14/21 07:56 Tiotropium/Olodaterol 10 Puff Inhaler IH 2 puffs DAILY PRICILLA Administration Topiramate 50 mg 11/12/21 08:30 11/14/21 09:03 Topiramate 25 Mg Tab PO Not Given BID PRICILLA Verapamil HCl 120 mg 11/12/21 10:00 11/13/21 08:05 Verapamil C.R. 120 Mg Tabcr PO 120 mg DAILY PRICILLA Administration Zolpidem Tartrate 10 mg 11/11/21 21:15 Zolpidem 5 Mg Tab PO HS PRN PRN SLEEP PFSH Active Problems Active Problems: Problem Status Onset Code Atrial fibrillation with rapid ventricular response I48.91 Closed left humeral fracture S42.302A Closed fracture of left proximal humerus 11/11/21 S42.202A MCL sprain of right knee S83.411A Alcohol abuse F10.10 Chest discomfort R07.89 Acute on chronic diastolic heart failure I50.33 Bilateral pleural effusion J90 Falls W19.XXXA Discharge planning issues Z02.9 DVT prophylaxis Z29.9 H/O fracture of femur Z87.81 Pulmonary nodule R91.1 Acute respiratory failure with hypoxia and hypercapnia J96.01, J96.02 Hyponatremia E87.1 Acute respiratory failure with hypoxia J96.01 Acute exacerbation of chronic obstructive pulmonary disease J44.1 Pneumonia J18.9 Acute respiratory distress R06.03 Femur fracture, right S72.91XA Fracture, rib S22.39XA A-fib I48.91 Nuclear sclerotic cataract of right eye H25.11 Laceration of digital nerve of left thumb S64.32XA Nuclear sclerotic cataract of left eye H25.12 Gastritis and duodenitis K29.90 Medical History Medical History Alcohol withdrawal Arthritis COPD (chronic obstructive pulmonary disease) Depression Hepatitis C Per H&P: s/p tx. . He had an abc CT earlier this year which showed a normal liver. Hypertension Neck fracture Per pt. states he broke his nevk 5-6 years ago. Upper GI bleed Varices of esophagus determined by endoscopy Surgical History Surgical History History of cataract surgery History of cataract surgery History of hand surgery History of surgery on wrist Tobacco Smoking/Tobacco Use Status: Current every day Tobacco Type: cigarettes Smoking cigarettes per day: 10 Alcohol Alcohol Intake: current Alcohol intake frequency: holidays/special occasions only Substance Use Substance use: Never Substance use type: does not use and unknown Vital Signs and Lab Results Vital Signs Most Recent Vital Signs in EMR: Most Recent Vital Signs Temp Pulse Resp BP Pulse Ox 36.9 C 107 H 18 105/65 94 11/14/21 08:00 11/14/21 08:00 11/14/21 08:00 11/14/21 08:00 11/14/21 08:00 Lab Results Result Diagrams: 11/14/21 06:01 11/14/21 06:01 Blood Type / Crossmatch: No Data to Display Complete Blood Count: White Blood Count 11.31 10^3/uL (4.4-10.8) H 11/14/21 06:01 Red Blood Count 3.48 10^6/uL (4.36-5.78) L 11/14/21 06:01 Hemoglobin 11.4 g/dL (13.5-17.5) L 11/14/21 06:01 Hematocrit 34.1 % (40.0-50.0) L 11/14/21 06:01 Platelet Count 312 10^3/uL (130-400) 11/14/21 06:01 Complete Metabolic Panel: Sodium Level 137 mmol/L (136-145) 11/14/21 06:01 Potassium Level 4.5 mmol/L (3.5-5.1) 11/14/21 06:01 Chloride Level 101 mmol/L (98-107) 11/14/21 06:01 Carbon Dioxide Level 29.7 mmol/L (21.0-32.0) 11/14/21 06:01 Blood Urea Nitrogen 15 mg/dL (7-18) 11/14/21 06:01 Creatinine 1.6 mg/dL (0.70-1.30) H 11/14/21 06:01 Magnesium Level 1.8 mg/dL (1.8-2.4) 11/12/21 05:30 Calcium Level 9.1 mg/dL (8.5-10.1) 11/14/21 06:01 Albumin 2.6 g/dL (3.4-5.0) L 11/12/21 05:30 Glucose Level 89 mg/dL (74-106) 11/14/21 06:01 Liver Function Panel: Alanine Aminotransferase (ALT/SGPT) 20 U/L (16-63) 11/12/21 05:30 Aspartate Amino Transf (AST/SGOT) 28 U/L (15-37) 11/12/21 05:30 Coagulation Panel: INR International Normalized Ratio 1.0 (0.9-1.1) 11/11/21 17:43 Prothrombin Time 9.9 sec (9.3-11.0) 11/11/21 17:43 Activated Partial Thromboplast Time 22.8 sec (21.0-27.5) 11/11/21 17:43 Cardiac Panel: Troponin I < 50 ng/L (<or=60) 11/11/21 Arterial Blood Gas: No Data to Display Venous Blood Gas: No Data to Display Pancreas Panel: No Data to Display Thyroid Panel: Thyroid Stimulating Hormone (TSH) 3.88 uIU/mL (0.36-3.74) H 11/12/21 05:30 Infectious Disease: Coronavirus (COVID-19)(PCR) Negative (Negative) 11/11/21 19:40 Coronavirus 2019 Source Nasal/Nares 11/11/21 19:40 Blood Cultures: No Data to Display Toxicology Panel: No Data to Display Imaging and Studies Imaging and Studies Study information below may be from another EMR and interpreted by another provider. Please see original notes in EMR for more complete details. EKG Summary: 11/11/21 Exam: Resting ECG Reason for Exam: CHEST PAIN Patient Location: E HR:164 bpm ECG Measurements Heart Rate 164 AXIS AK [id number] P [id number] QRSd 102 QRS 5 QT 279 T34 QTc 466 Conclusion Atrial fibrillation with rapid V-rate...A-rate 454 Echocardiogram Summary: 02/10/2021 Conclusion Normal left ventricular wall thickness and chamber size. Estimated ejection fraction is 55%. Wall motion is normal Normal right ventricular size and systolic function Both atria are moderately dilated There are no structural valvular abnormalities Trace to mild mitral regurgitation Mild tricuspid regurgitation Estimated right ventricular systolic pressure is 37 mmHg Compared to the echocardiogram of January 2020, atrial sizes have increased and right ventricular systolic pressure has gone from 20 to 37 mmHg Anesthesia Assessment and Plan Anesthesia History Personal History: Other (Reports some aggitation with his last cataract removal (states reaction to diazepam)) Family History: No Family History of Anesthesia Complications Exercise Tolerance Exercise Tolerance: Metabolic Equivalents>4 Cardiac & Pulmonary Exam Cardiac Exam: Normal S1/S2 Heart Sounds Pulmonary Exam: Wheezing Present and Other (Diminished) Implantable Cardiac Device Does patient have a Pacemaker or an ICD?: No Airway Exam Known Difficult Airway: No Mallampati Class: 2 Mouth Opening: Normal (> 3cm) Thyromental Distance: Greater than 3 cm Facial Hair: Full [place] Neck Range of Motion: Limited ROM Neck Circumference: Normal Teeth Condition: Generalized Poor Dentition ASA Classification ASA Score: ASA 3 Emergency Case?: No NPO Status NPO Status: NPO Clears >2 hours, Solids >8 hours Anesthesia Plan Resuscitation Status: Full Code Anesthesia Technique: General Anesthesia Airway Planned: Endotracheal Tube Pain Management: Surgeon and patient request nerve block Monitors Used: Standard Monitors
--- NOTE | 2021-11-14 09:24 | PT.INNT ---
Date of service: 11/14/21 Time of Service: 09:25 PT Notes Visit Reasons: Atrial Fibrillation RVR, Fractured Humerus Hold off on PT evaluation until after rTSA today, 11/14/2021 for closed fracture of L humerus sustained form a fall on 11/09/2021. Thank you for the opportunity to participate in the care of this patient. Lina Caballero PT, DPT, CLT [facility] [place], [place]
--- NOTE | 2021-11-14 09:33 | PDOC.CMPRO ---
- If Service Date Differs Date of service: 11/14/21 Time of Service: 09:33 Care Management Progress Note S/O:Geovani went to the OR today to have his fractured humerus surgically repaired. CM was unable to meet with him as he was off the unit for most of the day. A:Geovani is a 66 year old man admitted on 11/11/21 with afib and a fractured humerus P: Anticipate Geovani will be discharged home with no new services. He will follow up with his community providers and plan of care and transport with a friend. CM will support Geovani and his discharge needs.
[2021-11-14] MEDS: Lactated Ringers 1,000 ML 80 ML IV (10:20)
--- NOTE | 2021-11-14 10:35 | W.PM.PROGNOT ---
Date of Service Date of service: 11/14/21 Time of Service: 18:46 Assessment and Plan Assessment and plan (1) Closed fracture of left proximal humerus: Status: Acute Assessment and plan: 66-year-old male postop day #0 status post Left fracture reverse total shoulder arthroplasty with biceps tenodesis Feeling okay after surgery. No major complaints or issues. Left shoulder feels different, but sensory intact equal to other side throughout including axillary nerve. Demonstrates good intact motor wrist and hand. Complete 24 hours postoperative antibiotics Void trial. If unable to void, place [place] and discontinue catheter AM postop day #1 Pain control-Multimodal Physical therapy and Occupational Therapy ordered: Reverse TSA protocol. Should remove sling while in bed or resting. Recommend sling when ambulatory or out of home. Gentle passive range of motion to the shoulder. Active range of motion elbow, wrist, and hand. May use upper extremity gently for all essential ADLs including active range of motion within a limited arc with light weightbearing. Continue mechanical DVT prophylaxis with SCDs and/or HIRAL hose May resume chemo DVT prophylaxis 24?hours post procedure tomorrow afternoon/PM Discussed with primary medical team Objective Last Vital Signs Temp 98.4 F 11/14/21 08:00 Pulse 107 H 11/14/21 08:00 Resp 18 11/14/21 08:00 BP 105/65 11/14/21 08:00 Pulse Ox 94 11/14/21 08:00 Laboratory Results - last 24 hr 11/14/21 11/14/21 06:01 06:01 WBC 11.31 H RBC 3.48 L Hgb 11.4 L Hct 34.1 L MCV 98 H MCH 32.8 MCHC 33.4 RDW 12.5 Plt Count 312 MPV 10.3 Immature Gran % 0.7 Neutrophils % 74.8 Lymphocytes % 11.4 Monocytes % 11.1 Eosinophils % 1.5 Basophils % 0.5 Nucleated RBC % 0.0 Absolute Neutrophils 8.46 H Absolute Lymphocytes 1.29 Absolute Monocytes 1.26 H Absolute Eosinophils 0.17 Absolute Basophils 0.06 Sodium 137 Potassium 4.5 Chloride 101 Carbon Dioxide 29.7 Anion Gap 6.3 BUN 15 Creatinine 1.6 H Est GFR (CKD-EPI 2020) 47.23 Glucose 89 Calcium 9.1
--- NOTE | 2021-11-14 11:00 | W.PM.OP ---
Operative Note Operative Note DATE OF PROCEDURE: 11/14/21 PRE-OP DIAGNOSIS: Left: 1. Displaced, complex proximal humerus fracture 2. Long head biceps tendon incarceration in fracture POST-OP DIAGNOSIS: same PROCEDURE: Left: 1. Fracture reverse total shoulder arthroplasty, CPT # 16941 2. Open biceps tenodesis, CPT # 98496 The assistant plant control operator was medically required as this procedure involves retraction, protection of neurovascular structures, and manipulation of multiple instruments and implants at the same time, which cannot be done without a skilled assistant plant control operator. SURGEON: Eh Hastings LAWNMOWER MECHANIC: Hilda Puckett ANESTHESIA TYPE: General LMA/ETT and Primary Nerve Block Refer to Anesthesia Record ESTIMATED BLOOD LOSS: 200 COMPLICATIONS: None Patient was transported to: PACU Patient's condition: stable Implants: [employer] modular glenoid system baseplate 24 mm +2mm lateralized [employer] modular glenoid system central post 20 mm [employer] modular glenoid system peripheral locking screws 20 mm inferior, 36 mm superior, 20 mm posterior, 16 mm anterior [employer] modular glenoid system glenosphere 42 +4 mm lateralized [employer] humeral stem 135 degrees size 8 [employer] suture cup size 42 neutral [employer] humeral insert size 42+6 mm Indications: Please see complete medical record for details. Findings: Remarkably displaced and comminuted proximal humerus fracture. Long head biceps tendon incarceration and partial laceration between multiple fracture fragments. Procedure Description: In the operating room, general anesthesia was induced. The patient was positioned beachchair on the operating room table. All bony prominences were well-padded. Preoperative antibiotics were administered. The shoulder was prepped and draped in the usual sterile fashion for shoulder arthroplasty. The correct patient, procedure, and side of the procedure were all verified prior to incision. The deltopectoral approach was taken to the anterior shoulder. Care was taken to bluntly dissect the interval between the deltoid and pectoralis major muscles and to identify the cephalic vein within its fat stripe. The the vein was mobilized laterally. There was significant early callus, hemorrhagic fibrinous tissue, and numerous displaced bony proximal humerus pieces in the deep space. Carefully, the large humeral head segment was removed in entirety and saved on the back table for use later bone grafting. The CT scan was used as a guide with the large multipart lesser tuberosity and bicipital groove segment located anteriorly. The long head of the biceps tendon was partially lacerated and stuck between these segments and the pectoralis major and humeral shaft fracture. It was secured to the upper margin of the pectoralis major as tenodesis using suture tape [id number]. It was then followed proximally and used to guide releasing the rotator interval and freeing and mobilizing these anterior large bone pieces from the manger of the superior and posterior rotator cuff and bone fragments. The superior rotator cuff and small bone fragments were also identified. Far posteriorly inferiorly there were additional large bone fragments that matched the humeral shaft cortex for later reduction. Suture tape horizontal mattresses were used to help mobilize this care the anterior superior and posterior rotator cuff and proximal humerus lesser bicipital groove and greater tuberosity bone fragments. Attention was then turned to the glenoid and retractors were placed and a circumferential release performed using the long head of the biceps remnant to remove soft tissue about the glenoid rim. Care was taken inferiorly to work on bone only between 5 and 7:00 o'clock and bluntly elevate tissues inferiorly. The VIP guide was placed on the glenoid and used to confirm placement and trajectory of the central guidepin. The guidepin was inserted and advanced just through the far cortex ensuring adequate central fixation length. Depth gauge was used to confirm length. The glenosphere sizer was used to confirm positioning and glenosphere size. The backside of the baseplate reamer was then used over the guidewire. There was appropriate eccentric reaming especially inferiorly. The central post drill was used and guidewire removed. The baseplate was impacted and fully compressed onto the glenoid surface. The locking guide was then used to drill and place appropriately lengthed inferior, superior, anterior, and posterior screws. The [id number] reamer was used to confirm adequate peripheral reaming. The glenosphere was applied with the supervisor cigar making hand and then impacted to engage the Perez taper. It was then locked with appropriate countersinking of the setscrew. The glenosphere was inspected and found to have good fit, appropriate positioning, and no soft tissue or bony impingement. Attention was then turned back to the proximal humerus, which was delivered from the wound and maintained in external rotation. FiberTape cerclage was placed around the proximal humeral shaft about a centimeter distal to the lowest extent of the fracture to prevent fracture propagation of a visible nondisplaced fracture line tracking laterally. The suture tails were left long after tension secured to 60 and knots tied with these tails placed just lateral to the biceps tenodesis and bicipital groove for later use in tuberosity and rotator cuff repair. Reamers were started appropriately posterior to the location of the reconstructed bicipital groove taking care to maintain in line approach with the humeral canal. Sequential reaming was done from size 5 up to size 7. Next, the broaches were sequentially used to open the proximal humerus starting with a size 5 and going up to size 8 and sunk to the appropriate depth while maintaining approximately 30 degrees retroversion. There was good fit in the medial calcar supported the medial stem nicely at the junction of the humeral head and neck fracture, which was used to guide humeral head height, as well as assessing the pectoralis major tendon, and there was rotational control of the proximal humerus with this size. The neutral offset guide, no reaming for the suture cup, and humeraltrial cup was connected. Trialing was commenced with +3 mm liner. The shoulder was reduced and taken through range of motion. Trial components were built up to +6 mm liner to achieve good stability and appropriate tension on the deltoid and conjoined tension. The trial components were removed from the proximal humerus. The wound was copiously irrigated with normal saline. The the proximal humeral stem and suture cup were assembled and brought over the proximal humerus. Suture tapes were loaded posteriorly posterior superiorly anterior superiorly and anteriorly through the holes in the suture plate for tuberosity and rotator cuff repair. A small amount of vancomycin powder was distributed in the proximal humerus. The humeral component and suture cup were impacted into place. The trial spacer liner was added, and the shoulder was reduced and range of motion, stability, and tension confirmed to be appropriate. The final liner was then connected, and range of motion, stability, and tension confirmed with excellent stability and a more physiologic anatomic subluxation with readily reducible glenohumeral joint not accounting for the large bony fragments that are interfering and stability that would be imparted from the tuberosity and rotator cuff repair. The shoulder was copiously irrigated with Betadine and normal saline. Vancomycin powder was distributed deeply about the shoulder the tuberosity traction stitches were used to mobilize and repair about the humeral component. Starting posteriorly, the bone was well reduced to the shaft and free needle used to pass the suture cup suture tapes in a mattress fashion from deep through the posterior rotator cuff medial to the bone fragment and knots secured it down. Traction sutures maintained for later additional repair. This was repeated with the posterior superior bone fragment, superior rotator cuff and small bone fragment, and the large anterior lesser tuberosity and subscapularis. Prior to tensioning the anterior and superior fixation, bone autograft then harvested from the backside of the humeral head was packed and compressed in the voids around the metaphyseal and suture cup humeral head areas. There was excellent bone apposition and recreation of the tuberosities and rotator cuff anatomy. The anterior and posterior traction stitches were then secured together in the suture cup sutures then used to secure anterior superior to posterior and posterior superior to anterior inferior. An additional suture was placed around a low additional anterior inferior bony and subscapularis fragment and secured posterior superior. Lastly, an anterior superior and posterior superior combined knotted stitches were then each secured distally preventing superior migration to the FiberTape cerclage sutures that have been left laterally on the shaft. The reconstructed proximal humerus and rotator cuff demonstrated excellent fixation strength and moved as a unit through motion with a now quite stable shoulder replacement. The deltopectoral interval was well approximated. Subcutaneous tissue was irrigated then closed using 2-0 Monocryl in a buried interrupted fashion. Skin was closed using 3-0 Monocryl in a buried subcuticular fashion. Skin glue was applied to the incision. A silver impregnated bandage was placed over the incision. The extremity was placed into a shoulder immobilizer. The patient awoke from anesthesia without complication and was taken to the recovery room in stable condition.
[2021-11-14] MEDS: ceFAZolin 2 GM/50 ML BAG IVPB (11:40)
--- NOTE | 2021-11-14 12:16 | W.ANESNERVE ---
Nerve Block Single Injection Procedure Date and Time Date Performed: 11/14/21 Procedure Start: 10:42 Location Where Procedure Performed Procedure Location: PACU Reason Performed: Postoperative Analgesia Requesting Provider: Eh Hastings Timeout Performed Timeout Performed: Yes Monitoring Used ECG, Blood Pressure, SpO2 and See EMR for corresponding vital signs Sterility Sterility: Hand Hygiene, Surgical Cap, Surgical Mask, Sterile Gloves and Chlorhexidine Sedation Given During Procedure Sedation Given (Indicate Dose Given): Versed IV Dose:: 1mg, documented on intraoperative record Patient Mental Status Patient Mental Status: Awake Nerve Block 1st Nerve Block: Laterality: Left Block Type: Supraclavicular Needle / Catheter Used: 80mm SonoPlex II Local Anesthetic Bolus (Indicate Dose Given): Lidocaine used for local infiltration of skin Additives (Indicate Dose Given): None Ultrasound: Sterile probe cover and gel used Ultrasound Image Saved?: No Nerve Stimulator: Not Used Paresthesia: None Procedure Tolerated: Complications Encountered (Profound respiratory variation with respiratory effort, unable to safely preform the block) Procedure Outcome: Unsuccessful Performed By: Nadiya Trujillo
[2021-11-14] MEDS: Bupivacaine 0.5% Pres-Free W/EPI 30 ML VIAL ×2 (13:33→15:00)
[2021-11-14] MEDS: ACETAMINOPHEN 1,000 MG/100 ML BTL 400 MG IVPB (15:57)
--- NOTE | 2021-11-14 16:38 | DI.RAD_ITS ---
Exam(s) XR SHOULDER LT COMPLETE 2+V EXAM: XR SHOULDER LT COMPLETE 2+V CLINICAL HISTORY: Portable in PACU postop. TECHNIQUE: 2D digital imaging was performed. COMPARISON: CR,XR XR SHOULDER LT COMPLETE 2+V from 11/11/2021 FINDINGS: Three postop views. There has been placement of a reverse prosthesis. Components appear to be in satisfactory position a lignment. IMPRESSION: DATA REPOSITORY: RADIATION DOSE DELIVERED:
--- NOTE | 2021-11-14 17:24 | W.ANESPOSTOP ---
Postoperative Evaluation Date, Time and Location Date Performed: 11/14/21 Time Performed: 17:12 Patient Location: PACU Vital Signs Most Recent Imported Vital Signs: Most Recent Vital Signs Temp Pulse Resp BP Pulse Ox 36.7 C 89 16 140/72 93 11/14/21 17:10 11/14/21 17:10 11/14/21 17:10 11/14/21 17:10 11/14/21 17:10 Pain Score Most Recent Pain Score: Most Recent Pain Score Pain Level [Left Shoulder] 7 11/13/21 21:55 Pain Level [Left Arm] 10 11/11/21 17:50 Pain Level 0 11/14/21 17:10 Assessment Mental Status: Awake (Alert & Oriented to Patient Baseline) Airway and Respiratory Function: Patent airway with normal (patient baseline) respiratory exam Cardiovascular Function: Hemodynamically Stable Hydration Status: Adequately Hydrated Nausea & Vomiting: No Nausea or Vomiting Pain: Pain is tolerable per patient Peripheral Nerve Block: Patient did not receive a nerve block
--- NOTE | 2021-11-14 18:45 | W.PM.PROGNOT ---
Date of Service Date of service: 11/14/21 Time of Service: 18:45 Assessment and Plan Assessment and plan (1) Atrial fibrillation with rapid ventricular response: Start date: 11/11/21 Status: Acute Assessment and plan: This is a 66-year-old gentleman who has rapid ventricular sponsor is atrial fibrillation requiring IV diltiazem for rate control. Possibly secondary to pain from left humerus fx. Now off cardizem drip. Now med-surg status His home verapamil and propanolol initiated. Ventricular rate controlled. Troponin neg x2. Not on anticoagulation therapy. (2) Alcohol abuse: Status: Chronic Assessment and plan: Previous history. (3) Closed left humeral fracture: Start date: 11/11/21 Status: Deleted Assessment and plan: Post-Op day 0: Left fx reverse total shoulder arthroplasty with biceps tendonosis. Pain management. PT/OT. Can continue 24 hours post procedure. (4) Hyponatremia: Status: Chronic Assessment and plan: Mild at 134 on admission; improved to 136 and now 134 again. Exam Narrative Exam Narrative: General: Sitting up in bed. Lung: Clear but mildly diminished. Heart: Irreg Irreg. No murmur Abdomen: soft, nontender Extremities: Left shoulder with swelling and bruising. Surgical bandage in place. Swelling and bruising (extending into forearm and hand. Some improvement in swelling. Nonpitting edema over feet and ankles. Right shoulder slightly tender but no swelling. Skin: Bruising of the left side of thorax. No rashes Neuro: no focal motor deficits. Psych: Affect appropriate. Mildly confused; is post-op / post anesthesia. Objective Last Vital Signs Temp 36.5 C 11/14/21 18:30 Pulse 75 11/14/21 18:30 Resp 18 11/14/21 18:30 BP 97/66 L 11/14/21 18:30 Pulse Ox 91 L 11/14/21 18:30 Laboratory Results - last 24 hr 11/14/21 11/14/21 06:01 06:01 WBC 11.31 H RBC 3.48 L Hgb 11.4 L Hct 34.1 L MCV 98 H MCH 32.8 MCHC 33.4 RDW 12.5 Plt Count 312 MPV 10.3 Immature Gran % 0.7 Neutrophils % 74.8 Lymphocytes % 11.4 Monocytes % 11.1 Eosinophils % 1.5 Basophils % 0.5 Nucleated RBC % 0.0 Absolute Neutrophils 8.46 H Absolute Lymphocytes 1.29 Absolute Monocytes 1.26 H Absolute Eosinophils 0.17 Absolute Basophils 0.06 Sodium 137 Potassium 4.5 Chloride 101 Carbon Dioxide 29.7 Anion Gap 6.3 BUN 15 Creatinine 1.6 H Est GFR (CKD-EPI 2020) 47.23 Glucose 89 Calcium 9.1
[2021-11-14] MEDS: buPROPion-CR 150 MG TABCR PO (20:04)
[2021-11-14] MEDS: Acetaminophen 325 MG TAB PO (20:04)
[2021-11-14] MEDS: Topiramate 25 MG TAB 50 MG PO (20:04)
[2021-11-14] MEDS: Docusate Sodium 100 MG CAP PO (20:05)
[2021-11-14] MEDS: oxyCODONE 10 MG TAB PO (20:05)
[2021-11-14] MEDS: ceFAZolin 1 GM/50 ML BAG IV (20:05)
[2021-11-15] VITALS (8 sets, daily range): BP systolic 98–137; BP diastolic 62–76; PULSE 61–110; RESP 18–19; TEMP 36.5–37.4; O2SAT 91–100
[2021-11-15] MEDS: oxyCODONE 10 MG TAB PO ×5 (00:36→18:00)
[2021-11-15] MEDS: ceFAZolin 1 GM/50 ML BAG IV ×2 (03:44→12:35)
[2021-11-15] MEDS: Acetaminophen 325 MG TAB PO (06:29)
[2021-11-15] MEDS: HYDROmorphone 2 MG/ML SYR 1 MG IVP ×2 (08:16→20:10)
[2021-11-15] MEDS: Normal Saline Flush 10 ML SYR IVP ×2 (08:17→12:35)
[2021-11-15] MEDS: Gabapentin 400 MG CAP 800 MG PO ×3 (08:18→19:43)
[2021-11-15] MEDS: Citalopram 20 MG TAB PO (08:18)
[2021-11-15] MEDS: Tiotropium/Olodaterol 10 PUFF INHALER 2 PUFF IH (08:48)
[2021-11-15] MEDS: buPROPion-CR 150 MG TABCR PO ×2 (09:18→19:43)
[2021-11-15] MEDS: Propranolol 80 MG CAPCR 160 MG PO (09:19)
[2021-11-15] MEDS: Magnesium Oxide 400 MG TAB PO (09:19)
[2021-11-15] MEDS: Pantoprazole 40 MG TABCR PO (09:19)
[2021-11-15] MEDS: Topiramate 25 MG TAB 50 MG PO ×2 (09:19→19:43)
[2021-11-15] MEDS: Baclofen 10 MG TAB PO ×3 (09:22→19:43)
--- NOTE | 2021-11-15 10:04 | PT.INIE ---
Date of service: 11/15/21 Time of Service: 10:04 PT Notes Visit Reasons: Atrial Fibrillation RVR, Fractured Humerus Physical Therapy Inpatient Initial Evaluation Date: 11/15/2021 Referring Doctor: Chino Dejesus MD PT Orders: PT CONSULT: Eval/Treat Precautions: Fall. Standard. Activity as tolerated. Patient Profile/Admitting Diagnosis: Patient is a 66-year-old male patient who presented to the ED on 11/11/2021 due to a fall he sustained 2 days prior to admission with complaints of L shoulder pain. Patient is diagnosed with displaced complex proximal humeral fracture and long head of triceps tendon incarceration S/P L rTSA and R open biceps tenodesis on postoperative day 1. She also has diagnoses of atrial fibrillation and hyponatremia. PMHX: All Active Problems?(Updated 11/12/21 @ 03:52 by Jerson Delarosa) Atrial fibrillation with rapid ventricular response (Acute) Closed left humeral fracture (Acute) Closed fracture of left proximal humerus (Acute 11/11/21) MCL sprain of right knee (Acute) Alcohol abuse (Chronic) Chest discomfort (Chronic) Acute on chronic diastolic heart failure (Acute) Bilateral pleural effusion (Acute) Falls (Acute) Discharge planning issues (Acute) DVT prophylaxis (Acute) Pulmonary nodule (Acute) Hyponatremia (Chronic) Acute respiratory failure with hypoxia (Acute) Acute exacerbation of chronic obstructive pulmonary disease (Acute) Pneumonia (Acute) Acute respiratory distress (Acute) Femur fracture, right (Acute) Fracture, rib (Acute) A-fib (Chronic) Laceration of digital nerve of left thumb (Acute) Gastritis and duodenitis (Acute) Medical History? Alcohol withdrawal Arthritis COPD (chronic obstructive pulmonary disease) Depression Hepatitis C Per H&P: s/p tx. . He had an abc CT earlier this year which showed a normal liver. Hypertension Neck fracture Per pt. states he broke his nevk 5-6 years ago Upper GI bleed Varices of esophagus determined by endoscopy Surgical History? History of cataract surgery History of cataract surgery History of hand surgery History of surgery on wrist Social History/Home Situation: Lives alone in an apartment with 17 steps to enter with a rail on one side. Unsure of how accurate responses are regarding this as patient seems a bit confused and appears to have some word finding difficulty throughout conversation. Equipment Owned/DME: [facility] Subjective: Patient states that he will not walk unless his pain is managed. He verbalizes that he has had negative experiences with PT previously and he does not want to be placed in the same situation as before. He complains pain in L shoulder at 7/10 and adds that he has been struggling with chronic pain before. He did agree to attempting to move after lunch with premedication and Nurse Raul is on board about this. Regarding his L foot, patient recalls that the weakness started about a month ago. He is unable to bring his foot up beyond midline. He denies any sensory changes. Denies pain. Objective: General Observation: Awake. Guarding L shoulder, highly favoring it as he moves about in bed. L arm and L hand swollen and considerably discolored. Ecchymoses seen in L UE and L side of back and pelvis. Mepilex Ag over surgical incision. Mental Status: Alert and oriented as to person, place, time, and purpose. Able to pay attention, focus, and respond appropriately. Pain: 7/10 in L shoulder Vital Signs: WNL as closely monitored by nursing staff ROM: Right Upper Extremity: Shoulder Flexion WFL. Shoulder abduction WFL. Elbow flexion WFL. Wrist flexion WFL. Functional opening and closing of hand WFL. Left Upper Extremity: Shoulder Flexion NT. Shoulder abduction NT. Elbow flexion WFL. Wrist flexion WFL. Functional opening and closing of hand WFL. Right Lower Extremity: Hip flexion WFL. Hip abduction WFL. Knee flexion WFL. Ankle dorsiflexion WFL. Ankle plantarflexion WFL. Left Lower Extremity: Hip flexion WFL. Hip abduction WFL. Knee flexion WFL. Ankle dorsiflexion 10 degrees. Ankle plantarflexion 20 degrees. Strength: Right Upper Extremity: Shoulder flexors 5/5. Shoulder abductors 5/5. Elbow flexors 5/5. Elbow extensors 5/5. Large Sheetfed Press Operator strong. Left Upper Extremity: Shoulder flexors NT. Shoulder abductors NT. Elbow flexors 3/5. Elbow extensors 3/5. Large Sheetfed Press Operator weak but functional. Right Lower Extremity: Hip flexors 4/5. Hip abductors 4/5. Knee flexors 4/5. Knee extensors 4/5. Ankle dorsiflexors 5/5. Ankle plantarflexors 5/5. Left Lower Extremity: Hip flexors 4-/5. Hip abductors 4-/5. Knee flexors 4-/5. Knee extensors 4-/5. Ankle dorsiflexors 3-/5. Ankle plantarflexors 3-/5. Bed Mobility/Transfers: Patient declined to get out of bed due to pain, agreeable to attempting this afternoon with premedication. Gait: Patient declined to get out of bed due to pain, agreeable to attempting this afternoon with premedication. Balance: Patient declined to get out of bed due to pain, agreeable to attempting this afternoon with premedication. Special Tests: Mobility Limitations Standardized Measure [facility] AM-PAC 6 clicks Basic Mobility Inpatient Short Form: Raw Score: 12 CMS Score: 69% deficit Babinski reflex: positive on the L Foot drop: positive on the L Informed Consent/Education: Patient was instructed in purpose of PT consult and plan of care. Agreeable to proceed with established PT POC to achieve personal goals. Assessment: Patient declined to get out of bed this morning due to pain level and anxiety. Had some previous negative experiences with PT with pain and did not want to participate if pain was not managed well first. Agreed to be seen later this afternoon after Nurse Raul pre-medicates him. As for his L foot drop and positive Babinski reflex, may have some underlying neurological pathology. Will defer to MD/neurologist for further neurologic examination/testing. Patient also appeared to have some occasional word finding difficulty throughout the conversation, not being able to name commonplace items. Dr. Slaughter made aware. Unsure of whether he hit his head when he fell. Did not see CT scan of head with ED admission. He has 17 steps to enter his apartment. Patient will benefit from an OT evaluation to assess self-care and dressing skills in anticipation of discharge home alone. Patient presents with clinical signs and symptoms consistent with current/admitting diagnoses that have resulted to mobility limitations, gait instability, generalized weakness, and overall ADL decline as demonstrated by the following impairment level findings: 1. Decreased strength to L UE/and L dorsiflexors 2. Impaired sitting/standing balance 3. Impaired activity tolerance 4. Limitation of joint range of motion in L UE and L dorsiflexors 5. + Babinski Reflex on L 6. Swelling in L UE Impairments are contributing to the following functional limitations: 1. Decline in bed mobility skills 2. Decline in transfer skills 3. Difficulty with ambulation 4. Increased completion time for mobility ADL performance 5. Increased risk for falls 6. Difficulty with managing steps alone safely Patient is assessed as a 42909 moderate complexity based on the following: History: [id number] male with past medical history as indicated above Examination: Demonstrable impairment in strength, balance, and mobility level with underlying impairments and functional limitations as exhibited above as well as deficit score of 69% utilizing the [facility] Mobility Inpatient Short Form Presentation: Evolving Decision Makin moderate complexity Goals: Goals X1 week 1. Supine-Sit independent 2. Sit-Supine independent 3. Sit-Stand independent 4. Stand-Sit independent with no AD 5. Bed-Chair independent with no AD 6. Chair-Bed independent with no AD 7. Independent gait on level surface with use of no AD for at least 500 feet without report of pain nor dyspnea 8. Independent stair negotiation while holding onto 1 rails for at least 17 steps without report of pain nor dyspnea 9. Independent with home exercise program 10. Good static and dynamic standing balance/tolerance Plan of Care/Treatment Plan: 1-2x/day, 7 days/week x 1 week. Plan of care has been reviewed with the TWO NEEDLE MACHINE OPERATOR providing the service under Physical Therapy direction. Initiate Physical Therapy intervention for pain management as needed, strengthening, bed mobility, transfers, gait, stairs, balance training, and use of assistive device. DISCHARGE RECOMMENDATIONS: [] Home with no services [] [X] Home with services. Patient will benefit from home health PT/OT services in order to progress mobility level using least restrictive assistive ambulatory device, assess home safety, identify additional equipment needs, and establish a functional maintenance program that will increase ability of patient to remain at home. [] Home with outpatient PT [] [] SNF for continued rehabilitation [] [] Business Excellence Leader Care [] [] SNF versus LTC based on ability to participate and progress [] TREATMENT CODE/TIME: 03734 x 20 minutes, 66677 x 31 minutes beginning at 10:04 AM. Thank you for the opportunity to participate in the care of this patient. Lina Caballero PT, DPT, CLT [facility] [place], [place]
--- NOTE | 2021-11-15 10:21 | CMPROGNOTE_ITS ---
- If Service Date Differs Date of service: 11/15/21 Time of Service: 10:21 Care Management Progress Note S/O: Geovani went to the OR for surgical intervention and repair of his right fractured humerus. He is working with PT and ambulating in the villeda with assistance. Anticipate Derrick will be discharged home with outpatient follow up appointments when medically ready. A:Geovani is a 66 year old man admitted on 11/11/21 with afib and a fractured humerus P: Anticipate Geovani will be discharged home with New [facility] RN/PT (if indicated). He will follow up with his community providers and plan of care and transport with a friend. CM will support Geovani and his discharge needs.
[2021-11-15] MEDS: Docusate Sodium 100 MG CAP PO (12:37)
--- NOTE | 2021-11-15 13:49 | PT.INTREAT ---
Date of service: 11/15/21 PT Notes Visit Reasons: Atrial Fibrillation RVR, Fractured Humerus Physical Therapy Inpatient Treatment Note Date: 11/15/2021 Precautions: Fall. Standard. L rTSA protocol in place per Dr. Hastings: Should remove sling while in bed or resting.? Recommend sling when ambulatory or out of home.? Gentle passive range of motion to the shoulder.? Active range of motion elbow, wrist, and hand.? May use upper extremity gently for all essential ADLs including active range of motion within a limited arc with light weightbearing. Subjective: Much more agreeable this afternoon. Appears mildly loopy but is able to follow single-step commands. Gets frustrated as he seems to have difficulty finding the right words to say occasionally in the session. Objective: General Observation: Ecchymoses seen in L UE and L side of back and pelvis.? Mepilex Ag over surgical incision. Mental Status: Alert and oriented as to person, place, time, and purpose. Mildly loopy but able to complet mobility performance with assiatnce. Pain: 4-5/10 in L shoulder Vital Signs: WNL as closely monitored by nursing staff Bed Mobility/Transfers: Supine to sit stand by assist Sit to stand stand by assist Sit to stand stand by assist Bed to chair stand by assist Gait: 300 feet with contact guard assist, no AD. No report of increased pain in L UE. L UE on a sling. Wide-based gait. Decreased step height and ankle dorsiflexion in L due to foot drop. Mild shortness of breath. Balance: Static sitting: Normal Dynamic sitting: Normal Static standing: Good Dynamic standing: Fair THERA EX: gentle scapular squeezes with B arms on B sides, seated at EOB x 10 with no report of increased pain gentle shoulder shrugs with B arms on B sides, seated at EOB x 10 with no report of increased pain L shoulder flexion PROM to 10 degrees before the point of pain, seated at EOB x 10 L shoulder abdunction PROM to 10 degrees before the point of pain, seated at EOB x 10 PROM to L elbow to about 30 degrees before the point of pain, seated at EOB x 10 AROM to wrist extension to about 10 degrees before the point of pain, seated at EOB x 10 AROM to wrist flexion to about 10 degrees before the point of pain, seated at EOB x 10 Ball squeezes x 20 Assessment: Patient declined to get out of bed this morning due to pain level and anxiety. ? Had some previous negative experiences with PT with pain and did not want to participate if pain was not managed well first. ? Agreed to be seen later this afternoon after Nurse Raul pre-medicates him.? As for his L foot drop and positive Babinski reflex,? may have some underlying neurological pathology.? Will defer to MD/neurologist for further neurologic examination/testing.? Patient also appeared to have some occasional word finding difficulty throughout the conversation,? not being able to name commonplace items.? Dr. Slaughter made aware.? Unsure of whether he hit his head when he fell.? Did not see CT scan of head with ED admission.? He has 17 steps to enter his apartment. Patient will benefit from an OT evaluation to assess self-care and dressing skills in anticipation of discharge home alone. DISCHARGE RECOMMENDATIONS: [] ? Home with no services [] [X] ? Home with services.? Patient will benefit from home health PT/OT services in order to progress mobility level using least restrictive assistive ambulatory device, assess home safety, identify additional equipment needs, and establish a functional maintenance program that will increase ability of patient to remain at home. [] ? Home with outpatient PT [] [] ? SNF for continued rehabilitation [] [] ? Care Home Care [] [] ? SNF versus LTC based on ability to participate and progress [] TREATMENT CODE/TIME: 26430 x 25 minutes , 76196 x 21 minutes beginning at 13:49 PM.
--- NOTE | 2021-11-15 17:41 | W.PM.PROGNOT ---
Date of Service Date of service: 11/15/21 Time of Service: 17:42 Assessment and Plan Assessment and plan (1) Atrial fibrillation with rapid ventricular response: Start date: 11/11/21 Status: Acute Assessment and plan: This is a 66-year-old gentleman who has rapid ventricular sponsor is atrial fibrillation requiring IV diltiazem for rate control. Possibly secondary to pain from left humerus fx. Now off cardizem drip. Now med-surg status and post-op day #1 for shoulder replacement. His home verapamil and propanolol initiated. Ventricular rate controlled. Troponin neg x2. Not on anticoagulation therapy. (2) Alcohol abuse: Status: Chronic Assessment and plan: Previous history. (3) Closed left humeral fracture: Start date: 11/11/21 Status: Deleted Assessment and plan: Post-Op day 1: Left fx reverse total shoulder arthroplasty with biceps tendonosis. Pain management; adjust as needed. PT/OT. Can continue 24 hours post procedure. (4) Hyponatremia: Status: Chronic Assessment and plan: Mild at 134 on admission; improved to 136 and now 134 again. (5) Left leg weakness: Status: Acute Assessment and plan: His PCP called and we discussed his Left ankle weakness; she had evaluated this in the office and had scheduled an MRI of L-S spine. I discussed this with the patient and he did not feel he could lie flat in the MRI scanner today but will try tomorrow if pain control is adequate and possibly after a dose of lorazepam. If no evidence of lower back pathology, consider CT head. Cont PT. Subjective Subjective Patient reports: still having pain (Right shoulder.), tolerating a regular diet and afebrile; denies nausea, vomiting or shortness of breath Exam Narrative Exam Narrative: General: Sitting up in bed. Lung: Clear but mildly diminished. Heart: Irreg Irreg. No murmur Abdomen: soft, nontender Extremities: Left shoulder with swelling and bruising. Surgical bandage in place. Swelling and bruising (extending into forearm and hand. Some improvement in swelling. Nonpitting edema over feet and ankles. Right shoulder slightly tender but no swelling. Skin: Bruising of the left side of thorax. No rashes Neuro: weakness of left ankle dorsiflexion. Proximal BLE muscle groups w/o weakness. Walked with PT Psych: Affect appropriate. Speech clear. Objective Last Vital Signs Temp 36.5 C 11/15/21 15:58 Pulse 81 11/15/21 15:58 Resp 18 11/15/21 15:58 BP 106/70 11/15/21 15:58 Pulse Ox 95 11/15/21 15:58
[2021-11-15] MEDS: Heparin 5,000 UNITS/ML VIAL 5000 UNITS SC (18:13)
[2021-11-15] MEDS: Enoxaparin 40 MG/0.4 ML SYR SC (22:47)
[2021-11-16] MEDS: HYDROmorphone 2 MG/ML SYR 1 MG IVP ×3 (01:37→21:36)
[2021-11-16] MEDS: Terazosin 2 MG CAP PO ×2 (01:44→21:37)
[2021-11-16] MEDS: Albuterol 2.5 MG/3 ML INH SOLN VIAL UPD (01:51)
[2021-11-16] MEDS: Normal Saline Flush 10 ML SYR IVP (02:03)
[2021-11-16 03:15] VITALS: BP 90/60; PULSE 75; RESP 18; TEMP 36.6; O2SAT 93
[2021-11-16 06:17] LABS: Abs Immature Grans 0.08 10^3/uL (0.0-0.06); Absolute Basophil Count 0.05 10^3/uL (0.0-0.2); Absolute Eosinophil Count 0.05 10^3/uL (0.0-0.7); Absolute Lymphocyte Count 2.31 10^3/uL (1.2-3.4); Absolute Monocyte Count 1.22 10^3/uL (0.1-0.8); Basophils % 0.4; Eosinophils % 0.4; HCT 30.7 % (40.0-50.0); HGB 9.8 g/dL (13.5-17.5); Immature Grans % 0.6; Lymphocytes % 18.3; MCH 32.1 pg (27.0-33.0); MCHC 31.9 % (32.0-36.0); MCV 101 fL (80-95); MPV 9.8 fL (8.0-11.0); Monocytes % 9.7; Neutrophils % 70.6; Platelet Count 340 10^3/uL (130-400); RBC 3.05 10^6/uL (4.36-5.78); RDW 12.5 % (11.8-14.1); RDW-SD 45.3 fL
[2021-11-16 06:48] LABS: ALT 10 U/L (16-63); AST 20 U/L (15-37); Albumin 2.2 g/dL (3.4-5.0); Alkaline Phosphatase 83 U/L (46-116); Anion Gap 6.1 mmol/L (3-11); BUN 20 mg/dL (7-18); Bilirubin, Total 0.6 mg/dL (0.2-1.0); CO2 28.9 mmol/L (21.0-32.0); CREATININE 1.6 mg/dL (0.70-1.30); Calcium 8.6 mg/dL (8.5-10.1); Chloride 103 mmol/L (98-107); Estimated GFR 47.23 (mL/min/1.73m2); Glucose 84 mg/dL (74-106); Potassium 3.8 mmol/L (3.5-5.1); Sodium 138 mmol/L (136-145); Total Protein 6.3 g/dL (6.4-8.2)
[2021-11-16 07:50] VITALS: BP 105/54; PULSE 110; RESP 20; TEMP 37.5; O2SAT 96
[2021-11-16] MEDS: Pantoprazole 40 MG TABCR PO (08:09)
[2021-11-16] MEDS: Polyethylene Glycol 3350 17 GM PACKET PO (08:09)
[2021-11-16] MEDS: Topiramate 25 MG TAB 50 MG PO ×2 (08:09→19:23)
[2021-11-16] MEDS: Propranolol 80 MG CAPCR 160 MG PO (08:10)
[2021-11-16] MEDS: Folic Acid 1 MG TAB PO (08:10)
[2021-11-16] MEDS: buPROPion-CR 150 MG TABCR PO ×2 (08:10→19:23)
[2021-11-16] MEDS: Baclofen 10 MG TAB PO ×3 (08:10→19:22)
[2021-11-16] MEDS: Aspirin E.C. 81 MG TABEC PO (08:10)
[2021-11-16] MEDS: Citalopram 20 MG TAB PO (08:10)
[2021-11-16] MEDS: Thiamine 100 MG TAB PO (08:10)
[2021-11-16] MEDS: oxyCODONE 10 MG TAB PO ×2 (08:10→11:56)
[2021-11-16] MEDS: Magnesium Oxide 400 MG TAB PO (08:10)
[2021-11-16] MEDS: Cyanocobalamin 500 MCG TAB 1000 MCG PO (08:11)
[2021-11-16] MEDS: Gabapentin 400 MG CAP 800 MG PO ×3 (08:35→19:22)
[2021-11-16] MEDS: Tiotropium/Olodaterol 10 PUFF INHALER 2 PUFF IH (09:12)
--- NOTE | 2021-11-16 09:33 | CMPROGNOTE_ITS ---
- If Service Date Differs Date of service: 11/16/21 Time of Service: 09:33 Care Management Progress Note S/O: Derrick is #2 day s/p surgical repair of his right fractured humerus. He is working with PT and ambulating in the villeda with assistance. Anticipate Derrick will be discharged home with outpatient follow up appointments when medically ready. A:Geovani is a 66 year old man admitted on 11/11/21 with afib and a fractured humerus P: Anticipate Geovani will be discharged home with New [facility] RN/PT (if indicated). He will follow up with his community providers and plan of care and transport with a friend. CM will support Geovani and his discharge needs.
[2021-11-16] MEDS: Lactated Ringers 500 ML IV (09:49)
[2021-11-16 11:02] LABS: Folate 5.5 ng/mL (8.6-20.0); Vitamin B12 382 pg/mL (193-986)
[2021-11-16 11:23] VITALS: BP 103/68; PULSE 76; RESP 18; TEMP 37.1; O2SAT 92
[2021-11-16] MEDS: Lidocaine 5% Patch 1 PATCH TP (12:02)
--- NOTE | 2021-11-16 12:37 | W.PM.PROGNOT ---
Date of Service Date of service: 11/16/21 Time of Service: 12:37 Assessment and Plan Assessment and plan (1) Closed fracture of left proximal humerus: Status: Acute (2) History of reverse total replacement of left shoulder joint: Assessment and plan: Derrick to do well on postop day #2 of a reverse total shoulder replacement on the left side as treatment for a proximal humerus fracture. His increased pain throughout the arm is likely due to the block wearing off and he is feeling the full extent of the injuries from his fall as well as postsurgical pain. Hopefully this will continue to be treated appropriately with the oral medications prescribed as his increase in pain appears to coincide with the need for a dose of oxycodone scheduled every 4 hours. He does express an interest to return home soon. Subjective Subjective Interval history since last seen: Postop day 2 for a reverse left total shoulder for treatment of proximal humerus fracture. He feels though his pain is increased and his upper extremity and that the block may be wearing off. He has required more pain medication today. His shoulder does feel different than it did before surgery and even somewhat better, however the rest of his arm has increased in pain. Denies fever, chills, chest pain, shortness of breath. Exam Extrem Other: Brief exam of the left arm today shows that the wound is not draining into the Mepilex dressing. The dressing is not removed today. Sensation is intact over the deltoid to light touch. He is able to fully flex and extend his fingers. Continues to have ecchymosis throughout the upper extremity. Objective Last Vital Signs Temp 98.8 F 11/16/21 11:23 Pulse 76 11/16/21 11:23 Resp 18 11/16/21 11:23 BP 103/68 11/16/21 11:23 Pulse Ox 92 11/16/21 11:23 Laboratory Results - last 24 hr 11/16/21 11/16/21 11/16/21 05:58 05:58 05:58 WBC 12.60 H RBC 3.05 L Hgb 9.8 L Hct 30.7 L MCV 101 H MCH 32.1 MCHC 31.9 L RDW 12.5 Plt Count 340 MPV 9.8 Immature Gran % 0.6 Neutrophils % 70.6 Lymphocytes % 18.3 Monocytes % 9.7 Eosinophils % 0.4 Basophils % 0.4 Nucleated RBC % 0.0 Absolute Neutrophils 8.90 H Absolute Lymphocytes 2.31 Absolute Monocytes 1.22 H Absolute Eosinophils 0.05 Absolute Basophils 0.05 Sodium 138 Potassium 3.8 Chloride 103 Carbon Dioxide 28.9 Anion Gap 6.1 BUN 20 H Creatinine 1.6 H Est GFR (CKD-EPI 2020) 47.23 Glucose 84 Calcium 8.6 Total Bilirubin 0.6 AST 20 ALT 10 L Alkaline Phosphatase 83 Total Protein 6.3 L Albumin 2.2 L Vitamin B12 382 Folate 5.5 L
[2021-11-16] MEDS: Acetaminophen 325 MG TAB 650 MG PO ×2 (14:32→19:23)
--- NOTE | 2021-11-16 16:15 | PT.INTREAT ---
Date of service: 11/16/21 Time of Service: 16:15 PT Notes Visit Reasons: Atrial Fibrillation RVR, Fractured Humerus Physical Therapy Inpatient Treatment Note Date: 11/16/2021 Precautions: Fall. Standard.?L rTSA protocol in place per Dr. Hastings:? Should remove sling while in bed or resting.? Recommend sling when ambulatory or out of home.? Gentle passive range of motion to the shoulder.? Active range of motion elbow, wrist, and hand.? May use upper extremity gently for all essential ADLs including active range of motion within a limited arc with light weightbearing. Subjective: Very loopy. Seeing things on the wall. Speech difficult to understand. States that his hand hurts at 10/10 today eventhough he is comforatbly resting on chair. Objective: General Observation:? Ecchymoses seen in L UE and L side of back and pelvis.? Mepilex Ag over surgical incision. Discoloration and swelling in L UE beginning to resolve. Mental Status: Much more mentally altered today. Visually hallucinating. Most responses off tangent. Instructions needed to be repeated several times. Easily distractable. Pain: 10/10 Vital Signs: WNL as closely monitored by nursing staff Bed Mobility/Transfers: Sit to stand minimal assist, needed several attempts Sit to stand moderate assist as patient abruptly needed to sit down stating that his feet could not hold him Gait: Deferred, increased altered mental status, at risk for falls, unable to follow instructions well. Unaware that he was listing too much posteriorly in standing right before he abruptly sat on chair. Balance: Static sitting: Normal Dynamic sitting: Normal Static standing: Poor Dynamic standing: Poor THERA EX: Stated that he did exercises already but squeeze ball was on the window. Mumbled something when he was prodded several times and stated that he wanted to finish his [employer] TV show. Assessment: Much altered mental status compared to yesterday. Nurse Christen was made aware. Unsafe to be walked at this time. Requires the help of two people if going to the bathroom for safety. Swelling and discoloration in L UE beginning to improve. Pain and impaired cognition continues to limit activity participation. Will need OT evaluation to assess self-care skills and ADL safety. DISCHARGE RECOMMENDATIONS: [] ? Home with no services [] [] ? Home with services [] [] ? Home with outpatient PT [] [] ? SNF for continued rehabilitation [] [] ? Horticultural Therapist Care [] [] ? SNF versus LTC based on ability to participate and progress [] [X] HHPT vs. SNF depending on progress towards goals and level of safety as patient lives alone TREATMENT CODE/TIME: 59535 x 17 minutes beginning at 16:15 PM.
[2021-11-16 19:00] VITALS: BP 105/69; PULSE 87; RESP 18; TEMP 37.5; O2SAT 94
[2021-11-16] MEDS: Enoxaparin 40 MG/0.4 ML SYR SC (21:36)
[2021-11-16 23:05] VITALS: BP 107/70; PULSE 84; RESP 18; TEMP 36.6; O2SAT 95
--- NOTE | 2021-11-16 23:39 | W.PM.PROGNOT ---
Date of Service Date of service: 11/16/21 Time of Service: 08:35 Assessment and Plan Assessment and plan (1) Atrial fibrillation with rapid ventricular response: Start date: 11/11/21 Status: Acute Assessment and plan: Presented with afib with rapid ventricular sponsor is atrial fibrillation requiring IV diltiazem for rate control. Possibly secondary to pain from left humerus fx. Now off cardizem drip. Now med-surg status and post-op day #2 for reverse total shoulder replacement. His home verapamil and propanolol initiated. Ventricular rate controlled. Troponin neg x2. Not on anticoagulation therapy. (2) Alcohol abuse: Status: Chronic Assessment and plan: Previous history. Denies drinking for several months. (3) Closed left humeral fracture: Start date: 11/11/21 Status: Deleted Assessment and plan: Post-Op day#2: Left fx reverse total shoulder arthroplasty with biceps tendonosis. Pain management; adjust as needed. PT/OT. (4) Hyponatremia: Status: Chronic Assessment and plan: Mild at 134 on admission; now 138. (5) Left leg weakness: Status: Acute Assessment and plan: His PCP called and we discussed his Left ankle weakness; she had evaluated this in the office and had scheduled an MRI of L-S spine. I discussed this with the patient and he did not feel he could lie flat in the MRI scanner at this time. Will continue to discuss to see if he would be amenable to the scan. If no evidence of lower back pathology, consider CT head. Cont PT. Subjective Subjective Patient reports: no new complaints, still having pain (left shoulder into forearm. ), tolerating a regular diet and afebrile; denies nausea, vomiting or shortness of breath Exam Narrative Exam Narrative: General: Sitting up in bed. Very focused on a TV show. Lung: Clear but mildly diminished. Heart: Irreg Irreg. No murmur Abdomen: soft, nontender Extremities: Left shoulder with swelling and bruising. Surgical bandage dry. Swelling and bruising (extending into forearm and hand. Some improvement in swelling. Nonpitting edema over feet and ankles. Right shoulder slightly tender but no swelling. Skin: Bruising of the left side of thorax. No rashes Neuro: weakness of left ankle dorsiflexion. Proximal BLE muscle groups w/o weakness. Walked with PT Psych: Affect is expansive. Speech normal. Objective Last Vital Signs Temp 37.5 C 11/16/21 19:53 Pulse 87 11/16/21 19:53 Resp 18 11/16/21 19:53 BP 105/69 11/16/21 19:53 Pulse Ox 94 11/16/21 19:53 Laboratory Results - last 24 hr 11/16/21 11/16/21 11/16/21 05:58 05:58 05:58 WBC 12.60 H RBC 3.05 L Hgb 9.8 L Hct 30.7 L MCV 101 H MCH 32.1 MCHC 31.9 L RDW 12.5 Plt Count 340 MPV 9.8 Immature Gran % 0.6 Neutrophils % 70.6 Lymphocytes % 18.3 Monocytes % 9.7 Eosinophils % 0.4 Basophils % 0.4 Nucleated RBC % 0.0 Absolute Neutrophils 8.90 H Absolute Lymphocytes 2.31 Absolute Monocytes 1.22 H Absolute Eosinophils 0.05 Absolute Basophils 0.05 Sodium 138 Potassium 3.8 Chloride 103 Carbon Dioxide 28.9 Anion Gap 6.1 BUN 20 H Creatinine 1.6 H Est GFR (CKD-EPI 2020) 47.23 Glucose 84 Calcium 8.6 Total Bilirubin 0.6 AST 20 ALT 10 L Alkaline Phosphatase 83 Total Protein 6.3 L Albumin 2.2 L Vitamin B12 382 Folate 5.5 L
[2021-11-17] MEDS: Albuterol 2.5 MG/3 ML INH SOLN VIAL UPD
[2021-11-17 03:10] VITALS: BP 109/74; PULSE 81; RESP 18; TEMP 36.6; O2SAT 95
[2021-11-17] MEDS: Docusate Sodium 100 MG CAP PO ×2 (06:49→23:38)
[2021-11-17] MEDS: oxyCODONE 10 MG TAB PO ×3 (06:49→23:15)
[2021-11-17 07:16] LABS: Abs Immature Grans 0.08 10^3/uL (0.0-0.06); Absolute Basophil Count 0.09 10^3/uL (0.0-0.2); Absolute Eosinophil Count 0.15 10^3/uL (0.0-0.7); Absolute Lymphocyte Count 1.16 10^3/uL (1.2-3.4); Absolute Monocyte Count 1.15 10^3/uL (0.1-0.8); Absolute Neutrophil Count 8.56 10^3/uL (1.2-6.7); Basophils % 0.8; Eosinophils % 1.3; HCT 32.3 % (40.0-50.0); HGB 10.4 g/dL (13.5-17.5); Immature Grans % 0.7; Lymphocytes % 10.4; MCH 32.4 pg (27.0-33.0); MCHC 32.2 % (32.0-36.0); MCV 101 fL (80-95); MPV 10.1 fL (8.0-11.0); Monocytes % 10.3; Neutrophils % 76.5; Platelet Count 351 10^3/uL (130-400); RBC 3.21 10^6/uL (4.36-5.78); RDW 12.3 % (11.8-14.1); RDW-SD 45.5 fL; WBC 11.19 10^3/uL (4.4-10.8)
[2021-11-17 07:39] LABS: Anion Gap 5.8 mmol/L (3-11); BUN 17 mg/dL (7-18); CO2 29.2 mmol/L (21.0-32.0); CREATININE 1.6 mg/dL (0.70-1.30); Calcium 8.8 mg/dL (8.5-10.1); Chloride 101 mmol/L (98-107); Estimated GFR 47.23 (mL/min/1.73m2); Glucose 119 mg/dL (74-106); Potassium 3.7 mmol/L (3.5-5.1); Sodium 136 mmol/L (136-145)
[2021-11-17 07:49] VITALS: BP 110/64; PULSE 67; RESP 16; TEMP 36.5; O2SAT 92
[2021-11-17] MEDS: Gabapentin 400 MG CAP 800 MG PO ×3 (07:51→19:25)
[2021-11-17] MEDS: Magnesium Oxide 400 MG TAB PO (07:51)
[2021-11-17] MEDS: Aspirin E.C. 81 MG TABEC PO (07:51)
[2021-11-17] MEDS: Polyethylene Glycol 3350 17 GM PACKET PO (07:51)
[2021-11-17] MEDS: Pantoprazole 40 MG TABCR PO (07:51)
[2021-11-17] MEDS: Propranolol 80 MG CAPCR 160 MG PO (07:51)
[2021-11-17] MEDS: Cyanocobalamin 500 MCG TAB 1000 MCG PO (07:52)
[2021-11-17] MEDS: buPROPion-CR 150 MG TABCR PO ×2 (07:52→19:26)
[2021-11-17] MEDS: Thiamine 100 MG TAB PO (07:52)
[2021-11-17] MEDS: Folic Acid 1 MG TAB PO (07:52)
[2021-11-17] MEDS: Acetaminophen 325 MG TAB 650 MG PO ×3 (07:52→19:26)
[2021-11-17] MEDS: Topiramate 25 MG TAB 50 MG PO ×2 (07:52→19:26)
[2021-11-17] MEDS: Baclofen 10 MG TAB PO ×3 (07:52→19:26)
[2021-11-17] MEDS: Citalopram 20 MG TAB PO (07:52)
[2021-11-17] MEDS: Tiotropium/Olodaterol 10 PUFF INHALER 2 PUFF IH (08:19)
[2021-11-17] MEDS: Lidocaine 5% Patch 1 PATCH TP (09:48)
[2021-11-17] MEDS: HYDROmorphone 2 MG/ML SYR 1 MG IVP (09:48)
--- NOTE | 2021-11-17 10:25 | CMPROGNOTE_ITS ---
- If Service Date Differs Date of service: 11/17/21 Time of Service: 10:25 Care Management Progress Note S/O: Geovani was sitting u in a chair when CM met with him. The provider was with him discussing discharge. An OT consult was requested by PT however that service is unavailable for the next 10 days. Geovani seemed surprised that his discharge was imminent. He verbalized to CM, after the provider left the room, that he doies not know how he will manage. He has a fractured humerus that was ortiz rgically repaired 3 days ago and is concerned about getting up and down the stairs to his apartment. He did agree to home health services but would have to go downstairs to let them in as he lives in a secure building. He will likely be discharged tomorrow. CM stated that a lift assist could be arranged if needed. CM also suggested he contact friends/family to enlist their help with refining supervisor, shopping etc until he can recuperate more. A:Geovani is a 66 year old man admitted on 11/11/21 with afib and a fractured humerus P: Anticipate Geovani will be discharged home with New [facility] RN/PT (if indicated). He will follow up with his community providers and plan of care and transport with a friend. CM will support Geovani and his discharge needs.
[2021-11-17 13:01] VITALS: BP 118/60; PULSE 64; RESP 16; TEMP 36.7; O2SAT 93
--- NOTE | 2021-11-17 14:28 | CHAPLAIN ---
Derrick was sitting up in the recliner when I visited. He said he is fine and was not interested in further conversation. He did ask for a cup of coffee thought and I got that for him.
--- NOTE | 2021-11-17 15:30 | PT.INTREAT ---
Date of service: 11/17/21 Time of Service: 09:00 PT Notes Visit Reasons: Atrial Fibrillation RVR, Fractured Humerus Inpatient Physical Therapy Treatment Note [facility] Date: 11/17/2021 PRECAUTIONS: Fall, NWB on L UE SUBJECTIVE: Derrick is hesitant, although eventually agreeable to participating in PT. He reports that his shoulder is very painful and that moving makes it worse. OBJECTIVE: Assisted patient with donning sling for comfort with ambulation. He refuses gait belt. PAIN: Patient reports pain in L shoulder with all movement BED MOBILITY/TRANSFERS Supine-sit: SBA Sit-stand: SBA Stand-sit: SBA GAIT Assistive Device: SPC Weight bearing: NWB on L UE Assist: SBA x2 Distance: 20' + 10' Deviation: Minimal unsteadiness with initiation THEREX: Patient refuses PROM exercises to L shoulder. TOILETING: Patient toileted with supervision. ASSESSMENT: Patient requires SBA only for ambulation with SPC support. He refuses PROM to L shoulder due to pain. Patient does not require any physical assist at this time, and is hesitant to participate in PT interventions due to pain. PLAN: Continue with general mobility training and global strengthening, as well as PROM to R shoulder as patient allows TREATMENT CODE/TIME: 30 minutes; 13035 x2 (09:00)
--- NOTE | 2021-11-17 15:42 | PGE_ITS ---
Date of Service Date of service: 11/17/21 Time of Service: 15:42 Assessment and Plan Assessment and plan (1) Closed left humeral fracture: Start date: 11/11/21 Status: Deleted Assessment and plan: Post-Op day#3: Left fx reverse total shoulder arthroplasty with biceps tendonosis. Pain management; adjust as needed. PT/OT. No O.T. available this week. Will order upon dc tomorrow. (2) Atrial fibrillation with rapid ventricular response: Status: Acute Assessment and plan: now controlled rate back on his home dose of his propranolol and verapamil. Patient not a good candidate for full AC d/t his falls. He will remain on ASA for now (3) Alcohol abuse: Status: Chronic Assessment and plan: Previous history. Denies drinking for several months. (4) Hyponatremia: Status: Chronic Assessment and plan: stable. sodium 136. unclear etiology. I wonder if he has ever quit drinking and may have beer potomania (5) Left leg weakness: Status: Acute Assessment and plan: no visible weakness for me; however he has been refusing to participate for P.T.; Dr. Slaughter had discussion w/ his PCP regarding left ankle weakness and recommended LS MRI however patient has been declining this d/t he has stated he can not lie flat for this. (6) Discharge planning issues: Status: Acute Assessment and plan: patient to be dc home tomorrow w/ HH including nursing, P.T. and O.T. Subjective Subjective Interval history since last seen: Patient has not been cooperating with performing for physical therapy. PT requested an OT consult. Unfortunately OT is not available this week. Patient reports concerns about going home because of problems with navigating up 17 steps as he lives in an upstairs apartment. However he has no ambulatory dysfunction. He will be discharged tomorrow once has set up home health and P.T. at home and the patient can arrange transportation and assistance in gett ing him into his apartment. Exam Narrative Exam Narrative: Left arm is in a sling. Proximal humerus incision appears to be intact with a dressing over the wound. No induration or erythema around it. His left hand and forearm has some edema however has been letting the arm hang down rather than propping up on a pillow. Pulses intact in the left wrist. Sensation is intact. Does have some ecchymosis of the left forearm. Objective Last Vital Signs Temp 36.7 C 11/17/21 13:01 Pulse 64 11/17/21 13:01 Resp 16 11/17/21 13:01 BP 118/60 11/17/21 13:01 Pulse Ox 93 11/17/21 13:01 Laboratory Results - last 24 hr 11/17/21 11/17/21 06:50 06:50 WBC 11.19 H RBC 3.21 L Hgb 10.4 L Hct 32.3 L MCV 101 H MCH 32.4 MCHC 32.2 RDW 12.3 Plt Count 351 MPV 10.1 Immature Gran % 0.7 Neutrophils % 76.5 Lymphocytes % 10.4 Monocytes % 10.3 Eosinophils % 1.3 Basophils % 0.8 Nucleated RBC % 0.0 Absolute Neutrophils 8.56 H Absolute Lymphocytes 1.16 L Absolute Monocytes 1.15 H Absolute Eosinophils 0.15 Absolute Basophils 0.09 Sodium 136 Potassium 3.7 Chloride 101 Carbon Dioxide 29.2 Anion Gap 5.8 BUN 17 Creatinine 1.6 H Est GFR (CKD-EPI 2020) 47.23 Glucose 119 H Calcium 8.8
[2021-11-17 15:45] VITALS: BP 104/71; PULSE 80; RESP 17; TEMP 36.6; O2SAT 95
[2021-11-17 19:22] VITALS: BP 113/79; PULSE 76; RESP 17; TEMP 36.9; O2SAT 94
[2021-11-17] MEDS: Terazosin 2 MG CAP PO (21:36)
[2021-11-17] MEDS: Enoxaparin 40 MG/0.4 ML SYR SC (21:36)
[2021-11-17 23:30] VITALS: BP 105/80; PULSE 86; RESP 20; TEMP 36.6; O2SAT 99
[2021-11-17] MEDS: Milk of Magnesia 30 ML CUP PO (23:38)
[2021-11-18 03:30] VITALS: BP 117/85; PULSE 95; RESP 22; TEMP 36.2; O2SAT 93
[2021-11-18] MEDS: oxyCODONE 10 MG TAB PO ×3 (03:33→11:22)
[2021-11-18 07:35] VITALS: BP 125/90; PULSE 88; RESP 20; TEMP 36.8; O2SAT 96
[2021-11-18] MEDS: Tiotropium/Olodaterol 10 PUFF INHALER 2 PUFF IH (07:44)
[2021-11-18] MEDS: Polyethylene Glycol 3350 17 GM PACKET PO (07:47)
[2021-11-18] MEDS: Topiramate 25 MG TAB 50 MG PO (07:47)
[2021-11-18] MEDS: Cyanocobalamin 500 MCG TAB 1000 MCG PO (07:47)
[2021-11-18] MEDS: Pantoprazole 40 MG TABCR PO (07:47)
[2021-11-18] MEDS: Aspirin E.C. 81 MG TABEC PO (07:48)
[2021-11-18] MEDS: Citalopram 20 MG TAB PO (07:48)
[2021-11-18] MEDS: Acetaminophen 325 MG TAB 650 MG PO ×2 (07:48→14:40)
[2021-11-18] MEDS: Thiamine 100 MG TAB PO (07:48)
[2021-11-18] MEDS: buPROPion-CR 150 MG TABCR PO (07:48)
[2021-11-18] MEDS: Baclofen 10 MG TAB PO ×2 (07:48→14:40)
[2021-11-18] MEDS: Propranolol 80 MG CAPCR 160 MG PO (07:49)
[2021-11-18] MEDS: Folic Acid 1 MG TAB PO (07:49)
[2021-11-18] MEDS: Magnesium Oxide 400 MG TAB PO (07:49)
[2021-11-18] MEDS: Gabapentin 400 MG CAP 800 MG PO ×2 (07:49→14:40)
--- NOTE | 2021-11-18 09:02 | W.PM.PROGNOT ---
Date of Service Date of service: 11/18/21 Time of Service: 09:02 Assessment and Plan Assessment and plan (1) Closed fracture of left proximal humerus: Status: Acute (2) History of reverse total replacement of left shoulder joint: Assessment and plan: Mr. Nolan is a 66-year-old male who is on postop day #4 of a reverse total shoulder replacement on the left side as treatment for a proximal humerus fracture on 11/14/21 Had extensive conversation with patient in detail regarding his surgery details and postoperative course Briefly reviewed the standard Reverse TSA protocol - he may remove sling while in bed or resting.? Recommend sling when ambulatory or out of home.? Gentle passive range of motion to the shoulder.? Active range of motion elbow, wrist, and hand.? May use upper extremity gently for all essential ADLs including active range of motion within a limited arc with light weightbearing. Has been managed with oral pain medications - oxycodone, hydromorphone, gabapentin and acetaminophen; has chronic pain and takes gabapentin as well as hydrocodone-acetaminophen at baseline Reviewed with patient the importance of participating with PT working on gentle ROM - after conversation he is agreeable. Reviewed his PT notes which state he has not been willing to participate and spoke with his Sherri Lopes PTA this morning Patient reports that his initial injury occurred because his left leg weakness - due to his complaint hospitalist team has ordered MRI of lumbar spine to be completed today Had opportunity to have questions answered to his satisfaction Will contact office if issues arise Will plan to be discharged home as per hospitalist recommendations - follow up in orthopedic office on 11/23/21 Subjective Subjective Interval history since last seen: Mr. Nolan is a 66-year-old male who is postop day 4 for a reverse left total shoulder for treatment of proximal humerus fracture on 11/14/21. Patient reports continued pain along his left arm - primarily along his left elbow region that is noted with active arm ROM. Has continued with regular pain medication which he was waiting on at time of visit. Reports that his left shoulder pain has continued to improve compared to his preoperative function. Patient reports significant pain with PT sessions yesterday. Denies fever, chills, chest pain, shortness of breath, numbness or tingling. Exam Const General: comfortable and no acute distress Resp Effort & Inspection: normal respiratory effort and able to speak in complete sentences Extrem Other: Brief exam of the left upper extremity: Ecchymosis is noted diffusely along the upper extremity and chest wall. Improving edema is noted along the dorsum of the left hand. Brisk capillary refill is noted. Sensation to light touch intact along axillary, ulnar and radial nerve distributions. He has limited flexion of the thumb IP joint but is able to show intact motor function of median, radial and ulnar nerves. Mepilex dressing is intact and dry - was kept in place. He is able to attempt ~80% of elbow extension and flexion to 100 degrees before reporting moderate discomfort and refusing additional examination. Does not allow provider to complete passive elbow ROM. Gentle shoulder circumduction completed while cradling the elbow at 90 degrees was smooth and non-irritable - much to patient's surprise. Objective Last Vital Signs Temp 98.2 F 11/18/21 07:35 Pulse 88 11/18/21 07:35 Resp 20 11/18/21 07:35 BP 125/90 11/18/21 07:35 Pulse Ox 96 11/18/21 07:35
[2021-11-18] MEDS: Lidocaine 5% Patch 1 PATCH TP (09:56)
--- NOTE | 2021-11-18 11:54 | PT.INTREAT ---
Date of service: 11/18/21 Time of Service: 08:00 PT Notes Visit Reasons: Atrial Fibrillation RVR, Fractured Humerus Inpatient Physical Therapy Treatment Note [facility] Date: 11/18/2021 PRECAUTIONS: Fall, NWB on L UE SUBJECTIVE: Derrcik is hesitant, although eventually agreeable to participating in PT. He reports continued pain in L shoulder. He is hopeful that he will be discharged later today. OBJECTIVE: PAIN: Patient reports pain in L shoulder with all movement BED MOBILITY/TRANSFERS Supine-sit: I Sit-stand: I Stand-sit: I GAIT: Assistive Device: No AD Weight bearing: NWB on L UE Assist: SBA - S Distance: ~150' Deviation: Slow pacing, wide [place], refused sling THEREX: Patient was instructed in gentle shoulder shrugs (bilaterally), active elbow flexion/extension and ball squeezes on left. With sling off for gait training, patient was able to tolerate gravity-assisted modified pendulums. STAIRS: Patient declined the need for stair negotiation training. ASSESSMENT: Patient tolerated session with c/o L shoulder soreness, increasing with activity. He tolerates the addition of ROM exercises, although completes them actively as he does not trust anyone not to hurt him. PLAN: Patient to discharge to home later today, per provider. Recommend follow up with PT/OT upon discharge. TREATMENT CODE/TIME: Session 1: 15 minutes; 60118 (08:00) Session 2: 22 minutes; [id number] (13:55)
--- NOTE | 2021-11-18 12:22 | DI.MRI_ITS ---
Exam(s) MR LUMBAR SPINE WO EXAM: MR LUMBAR SPINE WO CLINICAL HISTORY: left foot drop. TECHNIQUE: Multiplanar multisequence MRI of the Lumbar spine was performed. COMPARISON: No exams were available for comparison FINDINGS: Five lumbar vertebrae are presumed. Conus medullaris is at normal level. There is no evidence of conus mass nor subjacent clumping of in trathecal nerve roots to suggest arachnoiditis. The distal thecal sac appears unremarkable.There is no evidence of Tarlov intrasacral cysts nor other significant findings within the sacral canal Bones:There are no fractures nor ominous osseous lesions in the lumbar vertebral bodies and visualize d sacrum. Nonacute Schmorl's node invagination in the superior endplate of L2 noted as well as sligh t loss of height of the superior endplate of L2. There is no bone edema in the L2 vertebral body to suggest that this is recent. With respect to the individual levels... T12-L1: Unremarkable L1-2: Schmorl's node invagination in superior endplate of L2 as described above. No disc herniation nor central canal stenosis.No significant facet arthropathy. No foraminal stenosis. L2-3: Mild decreased disc height posteriorly with broad symmetrical annular bulging which results in moderate central canal stenosis. This is related to the broad annular bulging and short AP dimension s the pedicles. There also moderate facet arthropathy changes. There is no distinct disc herniation . Also no foraminal stenosis. L3-4: Relatively preserved disc height. Broad annular bulging, extending into the floor of the exiti ng left neural foramen where there is also a disc protrusion extending posteriorly 5 millimeters. Ho wever, there does not appear to be significant foraminal stenosis on either side at this level. This left-sided disc protrusions extending posterior inferiorly in the neural foramen. The exiting left nerve root at this level is surrounded by normal fat signal. There ismoderate central spinal canal s tenosis due to the broad annular bulging and short AP dimensions the pedicles and facet arthropathy b ilaterally. L4-5: There is advanced uniform disc height loss at this level. Mild annular bulging but no signific ant disc herniation. Central canal dimensions are lower normal. There does not appear to be signifi cant foraminal stenosis at this level, despite the advanced disc height loss. There are moderate fac et joint degenerative changes. No significant ligamentum flavum hypertrophy. L5-S1: This level also exhibits advanced uniform disc height loss. There is, however, no significant focal disc herniation or central canal stenosis. No significant foraminal stenosis despite the disc height loss here. There are mild degenerative facet joint changes. No significant ligamentum flavu m hypertrophy. Soft tissues: paraspinal soft tissues appear unremarkable. IMPRESSION: 1. Multilevel findings as described individually above. 2. There is moderate central canal stenosis at L2-3 level and at the L3-4 level. This is related to broad annular bulging and short AP dimensions the pedicles and facet arthropathy at these levels. Th ere is also a left-sided foraminal level disc protrusion at L3-4 level. However, there does not appe ar to be foraminal stenosis on either side at this level. 3. Advanced disc height loss at both L4-5 and L5-S1 levels but without significant foraminal stenosis on either side at these levels nor evidence of significant central canal stenosis. Also no evidence of listhesis. Other findings as above. DATA REPOSITORY:
[2021-11-18 12:43] VITALS: BP 81/58; PULSE 66; RESP 18; TEMP 37.4; O2SAT 96
[2021-11-18 13:07] VITALS: BP 97/67
--- NOTE | 2021-11-18 13:35 | CMDISCH_ITS ---
- If Service Date Differs Date of service: 11/18/21 Time of Service: 13:35 LACE Index Scoring Tool - Questions: Length of Stay (in days): 4 - 6 Acuity (Admit via E.D.?): Yes Comorbidities: Chronic Pulmonary Disease E.D. Visits: 3 - Answers: Total Score: 12 Risk of Readmission: High Risk Care Management Discharge Reason for Hospitalization: Atrial fibrillation with RVR and fractured humerus Discharge Plan: Geovani will be discharged home with new [facility] orders RN/PT/OT/AGILE PROJECT MANAGER. He will follow up with his community providers and plan of care and transport with a friend. Patient/Family Education Needs: Review discharge instructions, discuss Ask Me Three. Services Needed at Discharge: Home Health Care Services
--- NOTE | 2021-11-18 14:20 | W.PM.DS.N ---
Date of service: 11/18/21 Time of Service: 14:20 DS: Diagnosis Discharge Diagnosis (1) Closed fracture of left proximal humerus: Status: Acute Asessment and Plan: Patient sustained a comminuted fracture of his left proximal humerus after a mechanical fall while shopping. This was surgically repaired by Dr. Eh Hastings on 11/14/2021 in which the patient underwent reverse total shoulder arthroplasty and open biceps tenodesis. Orthopedic service reviewed the protocol for reverse total shoulder arthroplasty protocol with the patient on the day of discharge indicating he can remove the arm from the sling while in bed or resting but recommend use of sling when ambulatory. They recommend gentle range of motion and allowing him to use the upper extremity gently for all essential ADLs. Ortho service also reviewed with him the importance of working with physical therapy and gentle range of motion. Patient has been scheduled follow-up with Dr. Hastings on 11/23/2021 at 10:45 AM. (2) History of reverse total replacement of left shoulder joint: (3) Atrial fibrillation with rapid ventricular response: Status: Resolved Asessment and Plan: Fibrillation rate has been controlled and patient has been put back on his home medications of verapamil and propranolol. (4) Alcohol abuse: Status: Chronic (5) Hyponatremia: Status: Resolved Asessment and Plan: Patient had mild hyponatremia on admission with a serum sodium at 134 this corrected with IV fluid hydration. (6) Left leg weakness: Status: Acute Asessment and Plan: Patient has had chronic left foot drop for the last month or more. MRI scan of the lumbosacral spine was performed on the morning of discharge but the result was pending at the time of discharge. (7) Discharge planning issues: Status: Deleted Asessment and Plan: Patient be discharged home with home health services including home physical therapy and Occupational Therapy along with home nursing and CREDIT CARD SPECIALIST. Patient be follow-up with his PCP Samantha at [facility] on 11/29/2021 and follow-up with orthopedic service on 11/23/[address] Eh Hastigns. Discharge Plan Disposition Patient Disposition: HOME W/HOME HEALTH SERVICE Condition: Improving Discharge Details Reason For Visit: Atrial Fibrillation RVR, Fractured Humerus Admit Date/Time: 11/11/21 19:21 Admit Provider: Jerson Delarosa Attending Provider: Jerson Delarosa Primary Care Provider: Sherri Guzman V Hospital Course Hospital Course: 66-year-old male who tripped while shopping at a [employer] store falling forward with no loss of consciousness presented with left shoulder pain. Imaging showed fracture of his left humerus. CT of the head and C-spine showed no acute pathology. Orthopedic surgery was consulted. Dr. Eh Hastings saw the patient on 11/12/2021. See his note for details. He recommended surgical repair of this shoulder as it was a comminuted fracture they felt would not heal well as the patient had a complex comminuted fracture left humeral head and neck. He was also noted to have some adjacent rib fractures that appear to be subacute. On 11/14/2021 patient underwent fracture reverse total shoulder arthroplasty and open biceps tenodesis. Patient underwent nerve block for his surgery. See anesthesia's note from 11/14/2021. Patient's hospital stay was complicated by rapid atrial fibrillation that required Cardizem drip. This was readily controlled he was converted back to his home dose of oral verapamil and propranolol. Physical therapy was consulted and patient had minimal participation in therapy as patient felt that his left shoulder pain was not adequately controlled and he did not want to aggravate this. Patient was also noted to have left foot drop which has been present for about one month prior to his hospitalization which his PCP had been wanting to workup as outpatient. Dr. Slaughter spoke w/ patient about doing an MRI of his LS spine but patient declined to have this done as he felt that he could not lie flat for the procedure. He eventually agreed to the test and this was accomplished on the day of discharge but results are pending. O.T. was recommended by P.T. to assess the patient's ability to adequately perform ADL's independently but O.T. was out for the week and could not be consulted. As the patient was minimally participating in P.T. and his afib was controlled and his shoulder repair had been performed, he no longer required in-patient treatment and therefore outpatient follow up w/ home P.T., O.T., M.S.W will be orderd through home health services / [facility]. Home Meds and New Rx's Prescriptions: New lidocaine [LMX 4] 4 % Cream 1 g topical QID PRN (Reason: PAIN) Qty: 30 0RF baclofen 10 mg Tablet 10 mg PO TID PRN (Reason: muscle spasm) Qty: 30 0RF oxycodone 10 mg Tablet 10 mg PO QID PRN (Reason: pain) Qty: 20 0RF Continued sumatriptan succinate 50 mg tablet See Rx Instructions PO .COMPLEX Rx Instructions: take 1 tab at onset of headache; if no relief may repeat 1 tab after at least 2 hrs; max = 4 tabs/24 hr PO magnesium oxide 400 mg (241.3 mg magnesium) tablet 400 mg PO DAILY famotidine 20 mg tablet 20 mg PO DAILY bupropion HCl [Wellbutrin SR] 150 MG tablet extended release 12 hr 150 mg PO BID Qty: 30 0RF citalopram 20 MG tablet 20 mg PO QAM Qty: 30 0RF cyclobenzaprine 10 MG tablet 10 mg PO TID PRN verapamil 120 mg Tablet Extended Release 120 mg PO DAILY propranolol 160 mg Capsule,Extended Release 24 Hr 160 mg PO DAILY polyethylene glycol 3350 17 gram Powder In Packet 17 g PO DAILY PRN hydrocodone-acetaminophen 10-325 mg Tablet 1 tab PO BID PRN aspirin 81 mg Tablet,Delayed Release (Dr/Ec) 81 mg PO DAILY triamcinolone acetonide 0.1 % Cream 1 applic TOPICAL BID gabapentin 800 mg Tablet 800 mg PO TID terazosin 1 mg Tablet 2 mg PO HS topiramate 50 mg Tablet 50 mg PO BID diclofenac sodium 1 % Gel 4 g TOPICAL BID PRN Bevespi Aerosphere 9-4.8 mcg Hfa Aerosol Inhaler 2 puff INHALATION BID zolpidem 10 mg Tablet 10 mg PO HS PRN lidocaine 5 % Ointment 1 applic TOPICAL QID PRN furosemide 20 mg tablet 20 mg PO DAILY Qty: 3 0RF pantoprazole 40 mg tablet,delayed release (DR/EC) 40 mg PO DAILY Label Comments: TK 1 T PO QD albuterol sulfate 90 mcg/actuation Hfa Aerosol Inhaler 2 puff INHALATION Q6H PRN Discharge Instructions Instructions: Joint Replacement Surgery (DC) Stand Alone Forms: Nursing Discharge Form Referrals: Eh Hastings MD [ [facility] STAFF PHYSICIAN] - 11/23/21 10:45 am Mary Arceo PA [NURSE PRACTITIONER] - 11/29/21 1:30 pm Activity:: Activity as Tolerated Equipment/Supplies:: Walker Diet:: Normal Diet Discharge Orders Discharge Orders: Discharge Order (Routine); Ordered 11/18/21 Ordered By: Domenic Wallace Discharge Data Discharge Date/Time-TO BE ENTERED AT DEPARTURE: 11/18/21 17:25 DS: Summary Time Spent with Patient providing and/or coordinating discharge services: Greater than 30 minutes Specific discharge activities: Interview/exam of patient; review of discharge instructions, completion of prescriptions/discharge instructions; discussion w/ nursing and CM; documentation of hospital visit Status at Discharge Functional status at discharge: uses cane/walker Overall status at discharge: patient is progressing back to baseline Mental Status: mental status grossly normal Speech and Movement: speech and movement normal Mood: congruent mood Affect: normal affect Exam Narrative Exam Narrative: Left arm is in a sling. Proximal humerus incision appears to be intact with a dressing over the wound. No induration or erythema around it. His left hand and forearm has some edema however has been letting the arm hang down rather than propping up on a pillow. Pulses intact in the left wrist. Sensation is intact. Does have some ecchymosis of the left forearm. Const General: comfortable and no acute distress Extrem Other: Exam of the left upper extremity: Ecchymosis is noted diffusely along the upper extremity and chest wall. Improving edema is noted along the dorsum of the left hand. Brisk capillary refill is noted. Sensation to light touch intact along left upper arm and forearm and hand. He has limited flexion of the thumb IP joint but is able to show intact motor function of median, radial and ulnar nerves. Mepilex dressing is intact and dry - was kept in place. Patient noted to be flexing and extending his left arm at the elbow while eating his lunch; arm was out of the sling. patient would not allow for me to abduct or circumduct the arm at the shoulder Psych Mental Status: mental status grossly normal Speech and Movement: speech and movement normal Mood: congruent mood Affect: normal affect DS: Data Vitals/I&O Vitals and I&O: Vital Signs Temperature 37.4 C 11/18/21 12:43 Temperature Source Tympanic 11/18/21 12:43 Pulse 66 11/18/21 12:43 Pulse Rhythm Irregular 11/18/21 09:21 Pulse 102 H 11/12/21 09:20 Respiratory Rate 18 11/18/21 12:43 Respiratory Effort Non-Labored 11/18/21 09:21 Respiratory Depth Normal 11/18/21 09:21 Respiratory Pattern Normal 11/18/21 09:21 Blood Pressure 97/67 L 11/18/21 13:07 Blood Pressure Mean 98 11/12/21 09:08 Blood Pressure Position Supine 11/12/21 09:08 Pulse Oximetry 96 11/18/21 12:43 Respiratory End-tidal CO2 17 11/14/21 16:55 Oxygen Delivery Method Room Air 11/18/21 12:43 Oxygen Flow Rate 0 11/18/21 12:43 Pain Level 10 11/18/21 12:43 Comment 11/18/21 13:07 Intake & Output 11/17/21 11/18/21 11/18/21 23:59 11:59 23:59 Intake Total 620 / 720 Balance 620 / 720 Weight 83.4 kg Intake: Oral 620 / 720 Other: Urine Color Yellow Urine Appearance Clear Clear Urine Odor Normal Comment void x 1 pT stated he also voided. Stool Size Large Stool Characteristics Soft Brown Voiding Methods Toilet Toilet Data Completed and Pending Pending studies at discharge: Results of MRI scan of the lumbosacral spine were pending at the time of discharge. Performance of the MRI was delayed d/t patient had declined to have this done for two days and only finally relented on the morning of his discharge. PFSH All Active Problems (Updated 11/19/21 @ 00:01 by FRANK MILLAN) Left leg weakness (Acute) Closed fracture of left proximal humerus (Acute 11/11/21) MCL sprain of right knee (Acute) Alcohol abuse (Chronic) Chest discomfort (Chronic) Acute on chronic diastolic heart failure (Acute) Bilateral pleural effusion (Acute) Falls (Acute) Discharge planning issues (Acute) DVT prophylaxis (Acute) Pulmonary nodule (Acute) Acute respiratory failure with hypoxia (Acute) Acute exacerbation of chronic obstructive pulmonary disease (Acute) Pneumonia (Acute) Acute respiratory distress (Acute) Femur fracture, right (Acute) Fracture, rib (Acute) A-fib (Chronic) Laceration of digital nerve of left thumb (Acute) Gastritis and duodenitis (Acute) Medical History Alcohol withdrawal Arthritis COPD (chronic obstructive pulmonary disease) Depression Hepatitis C Per H&P: s/p tx. . He had an abc CT earlier this year which showed a normal liver. Hypertension Neck fracture Per pt. states he broke his nevk 5-6 years ago. Upper GI bleed Varices of esophagus determined by endoscopy Surgical History History of cataract surgery History of cataract surgery History of hand surgery 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) As treatment for proximal humerus fx (DOI: 11/11/2021) History of surgery on wrist Social History Smoking/Tobacco Use Status: Current every day Tobacco Type: cigarettes Smoking risk assessment performed?: Yes Alcohol Intake: current Alcohol Intake frequency: holidays/special occasions only Drug use: Never Substance use type: does not use and unknown Current gender identity: male Do you feel safe at home: Yes Do you feel safe in your relationship?: Yes Additional Social history: lives alone
--- NOTE | 2021-11-18 15:48 | PDOC.HHF2F ---
Home Health Certification Home Health Certification: 1. Encounter Date and Reason I certify that Derrick Nolan was seen by Domenic Wallace on 11/18/21 and that I had a [id number] encounter with this patient that meets the physician face to face encounter requirements. 2. Clinical Findings Supporting Skilled Need and Homebound Status I certify that home health services are medically necessary, include either intermittent usp and/or physical/speech therapy, and that this patient is homebound in that absences from the home require considerable and taxing effort and are infrequent or of short duration, or are attributable to the need to receive medical care. [X] (a) Attached documentation from encounter provides clinical findings supporting skilled need and homebound status (including what assistance patient requires to leave the home). The encounter with the patient was in whole, or in part, for the following medical condition, which is the primary reason for home health care: Atrial Fibrillation RVR, Fractured Humerus Shelter: home health services to include nursing to evaluate and treat for afib, and recent left proximal humerus fracture w/ shoulder replacement; monitor pain control; coordinate any med changes w/ PCP. DEVELOPMENTAL BEHAVIORAL PHYSICIAN to coordinate all medical services between PCP, specialists and nursing or therapy staff. Physical Therapy: P.T. and O.T. to evaluate and treat for generalized weakness and decreased ADL performance d/t recent left proximal humerus fracture and recent left reverse total shoulder arthroplasty and left open biceps tenodesis performed by Dr. Hastings 11/14/21. Please coordinate w/ Dr. Hastings any limitations. Speech Therapy: Homebound: Patient's limited abilities d/t recent proximal left humerus fracture increases his risk of further injury w/ travel outside of his home. His gait and balance are still impaired enough that travel in and out of his apartment presents a hazard to his health 3. Certification and Authentication I certify that I composed the above information based on my clinical judgement relating to this patient's medical condition and, if applicable, clinical findings communicated to me by the NPP or inpatient physician who performed the Home Health Referral. All further orders will be obtained through Sherri Guzman (Community Based Physician - PCP)
--- NOTE | 2021-11-21 10:12 | PT.INDS ---
Date of service: 11/21/21 PT Notes Visit Reasons: Atrial Fibrillation RVR, Fractured Humerus Physical Therapy Inpatient Discharge Summary Date: 11/15/2021 Dates of Service: 11/15/2021 through 11/18/2021 This is a clinical summary of care provided for the duration of dates listed above. No charge was made in the completion of this documentation. Referring Doctor:Cathy Dejesus MD PT Orders: PT CONSULT:? Eval/Treat Precautions: Fall. Standard. Activity as tolerated. Patient Profile/Admitting Diagnosis:? Patient is a 66-year-old male patient who presented to the ED on 11/11/2021 due to a fall he sustained 2 days prior to admission with complaints of L shoulder pain. ? Patient is diagnosed with displaced complex proximal humeral fracture and long head of triceps tendon incarceration S/P L rTSA? and R open biceps tenodesis on postoperative day 1.? She also has diagnoses of atrial fibrillation and hyponatremia. PMHX: All Active Problems?(Updated 11/12/21 @ 03:52 by Jerson Delarosa) Atrial fibrillation with rapid ventricular response (Acute) Closed left humeral fracture (Acute) Closed fracture of left proximal humerus (Acute 11/11/21) MCL sprain of right knee (Acute) Alcohol abuse (Chronic) Chest discomfort (Chronic) Acute on chronic diastolic heart failure (Acute) Bilateral pleural effusion (Acute) Falls (Acute) Discharge planning issues (Acute) DVT prophylaxis (Acute) Pulmonary nodule (Acute) Hyponatremia (Chronic) Acute respiratory failure with hypoxia (Acute) Acute exacerbation of chronic obstructive pulmonary disease (Acute) Pneumonia (Acute) Acute respiratory distress (Acute) Femur fracture, right (Acute) Fracture, rib (Acute) A-fib (Chronic) Laceration of digital nerve of left thumb (Acute) Gastritis and duodenitis (Acute) Medical History? Alcohol withdrawal Arthritis COPD (chronic obstructive pulmonary disease) Depression Hepatitis C Per H&P: s/p tx. . He had an abc CT earlier this year which showed a normal liver. Hypertension Neck fracture Per pt. states he broke his nevk 5-6 years ago Upper GI bleed Varices of esophagus determined by endoscopy Surgical History? History of cataract surgery History of cataract surgery History of hand surgery History of surgery on wrist Social History/Home Situation: Lives alone in an apartment with 17 steps to enter with a rail on one side.? Unsure of how accurate responses are regarding this as patient seems a bit confused and appears to have some word finding difficulty throughout conversation.? Equipment Owned/DME: SPC Subjective: NT. See most recent CRABBING MACHINE OPERATOR notes. Objective: General Observation: NT. See most recent CRABBING MACHINE OPERATOR notes. Mental Status: NT. See most recent CRABBING MACHINE OPERATOR notes. Pain: NT. See most recent CRABBING MACHINE OPERATOR notes. Vital Signs: NT. See most recent CRABBING MACHINE OPERATOR notes. ROM: Right Upper Extremity:? Shoulder Flexion WFL. Shoulder abduction WFL. Elbow flexion WFL. Wrist flexion WFL. Functional opening and closing of hand WFL. Left Upper Extremity:? Shoulder Flexion NT. Shoulder abduction NT. Elbow flexion WFL. Wrist flexion WFL. Functional opening and closing of hand WFL. Right Lower Extremity: Hip flexion WFL. Hip abduction WFL. Knee flexion WFL. Ankle dorsiflexion WFL. Ankle plantarflexion WFL. Left Lower Extremity: Hip flexion WFL. Hip abduction WFL. Knee flexion WFL. Ankle dorsiflexion 10 degrees.? Ankle plantarflexion 20 degrees. Strength: Right Upper Extremity: Shoulder flexors 5/5. Shoulder abductors 5/5. Elbow flexors 5/5. Elbow extensors 5/5. Sports Information Director strong. Left Upper Extremity: Shoulder flexors NT. Shoulder abductors NT. Elbow flexors 3/5. Elbow extensors 3/5. Sports Information Director weak but functional. Right Lower Extremity: Hip flexors 4/5. Hip abductors 4/5. Knee flexors 4/5. Knee extensors 4/5. Ankle dorsiflexors 5/5. Ankle plantarflexors 5/5. Left Lower Extremity: Hip flexors 4-/5. Hip abductors 4-/5. Knee flexors 4-/5. Knee extensors 4-/5. Ankle dorsiflexors 3-/5. Ankle plantarflexors 3-/5. OBJECTIVE:? PAIN: Patient reports pain in L shoulder with all movement? BED MOBILITY/TRANSFERS? Supine-sit: I Sit-stand: I ? Stand-sit: I? GAIT:? Assistive Device: No AD? Weight bearing: NWB on L UE Assist: SBA - S Distance: ~150'? Deviation: Slow pacing, wide [place], refused sling Special Lilliana: Babinski reflex: positive on the L Foot drop: positive on the L Assessment: Patient has had some complianace issues while on admission. L foot drop and positive Babinski reflex,? may have some underlying neurological pathology.? Patient will benefit from an OT evaluation to assess self-care and dressing skills in anticipation of discharge home alone. Patient presents with clinical signs and symptoms consistent with current/admitting diagnoses that have resulted to mobility limitations, gait instability, generalized weakness, and overall ADL decline as demonstrated by the following impairment level findings: 1.? Decreased strength to L UE/and L dorsiflexors 2.? Impaired sitting/standing balance 3.? Impaired activity tolerance 4.? Limitation of joint range of motion in L UE and L dorsiflexors 5.? + Babinski Reflex on L 6.? Swelling in L UE Impairments are contributing to the following functional limitations: 1.? Decline in bed mobility skills 2.? Decline in transfer skills 3.? Difficulty with ambulation 4.? Increased completion time for mobility ADL performance 5.? Increased risk for falls 6.? Difficulty with managing steps alone safely Goals: Goals X1 week 1. Supine-Sit independent MET 2. Sit-Supine independent MET 3. Sit-Stand independent MET 4. Stand-Sit independent with no AD NOT MET 5. Bed-Chair independent with no AD NOT MET 6. Chair-Bed independent with no AD NOT MET 7. Independent gait on level surface with use of no AD for at least 500 feet without report of pain nor dyspnea NOT MET 8. Independent stair negotiation while holding onto 1 rails for at least 17 steps without report of pain nor dyspnea NOT MET 9. Independent with home exercise program NOT MET 10. Good static and dynamic standing balance/tolerance NOT MET DISCHARGE RECOMMENDATIONS: [] ? Home with no services [] [X] ? Home with services.? Patient will benefit from home health PT/OT services in order to progress mobility level using least restrictive assistive ambulatory device, assess home safety, identify additional equipment needs, and establish a functional maintenance program that will increase ability of patient to remain at home. [] ? Home with outpatient PT [] [] ? SNF for continued rehabilitation [] [] ? Computer Technologist Care [] [] ? SNF versus LTC based on ability to participate and progress [] TREATMENT CODE/TIME: ND Thank you for the opportunity to participate in the care of this patient. Lina Caballero PT, DPT, CLT [facility] [place], [place]
== END 2021-11-18 17:25 | disposition home health service (06) | DRG 483 ==
LOC: ER 20:24 → ICU 20:35 → MS 11-12 12:00
PROVIDERS: Family Medicine; Student in an Organized Health Care Education/Training Program; Admitting Provider Family Medicine; Emergency Provider Emergency Medicine; PCP Family Medicine; Visit Provider Family Medicine
PROC: 0RRK00Z Replacement of Left Shoulder Joint with Reverse Ball and Socket Synthetic Substitute, Open Approach (ICD-10-PCS; CPT 23472; principal; 2021-11-14 11:00)
DX: E87.1 Hypo-osmolality and hyponatremia; S42.292A Other displaced fracture of upper end of left humerus, initial encounter for closed fracture; F10.10 Alcohol abuse, uncomplicated; S46.112A Strain of muscle, fascia and tendon of long head of biceps, left arm, initial encounter; J44.9 Chronic obstructive pulmonary disease, unspecified; F17.210 Nicotine dependence, cigarettes, uncomplicated; I48.91 Unspecified atrial fibrillation; I10 Essential (primary) hypertension; B19.20 Unspecified viral hepatitis C without hepatic coma; G89.29 Other chronic pain; S22.42XD Multiple fractures of ribs, left side, subsequent encounter for fracture with routine healing; W01.198A Fall on same level from slipping, tripping and stumbling with subsequent striking against other object, initial encounter; M21.372 Foot drop, left foot; R29.898 Other symptoms and signs involving the musculoskeletal system
CPT/HCPCS: 23430; 23472; 36415; 76942; 80048; 80053; 87635; 93005; 94640; 96361; 96365; 96375; 96376; 97110; 97162; 97530; 99291; J1650; 71046; 72125; 72148; 73030; 73060; 73200; 82607; 82746; 83735; 84439; 84443; 84484; 85025; 85610; 85730; 93010; 99223; 99231; 99232; 99233; 99239; C1781; J0131; J0690; J1100; J1170; J1644; J2250; J2370; J2704; J3490; J7613

== ENCOUNTER → 2021-11-23 10:45 | Outpatient (BNVA) | payer MEDICARE, MEDICAID, SELFPAY | PROVIDERS: PCP Family Medicine; Referring Provider Family Medicine; Visit Provider Student in an Organized Health Care Education/Training Program | DX: R69 Illness, unspecified (principal) ==

== ENCOUNTER 2021-11-23 13:13 | Inpatient (IN) | payer MEDICARE, MEDICAID, SELFPAY ==
[2021-11-23] VITALS (81 sets, daily range): BP systolic 40–145; BP diastolic 20–110; PULSE 59–157; RESP 4–39; TEMP 36.7–37.2; O2SAT 93–100
--- NOTE | 2021-11-23 13:15 | RT.EKG_ITS ---
APPROVED REPORT Exam: Resting ECG Reason for Exam: tachycardia Patient Location: E HR:137 bpm ECG Measurements Heart Rate 137 AXIS [place] [id number] P [id number] QRSd 98 QRS -11 QT 307 T [id number] QTc 464 Conclusion Atrial fibrillation...V-rate 102-176, irreg A-activity Low voltage, extremity leads...all extremity leads <0.5mV
--- NOTE | 2021-11-23 13:30 | DI.RAD_ITS ---
Exam(s) XR PORTABLE CHEST AP EXAM: XR PORTABLE CHEST AP CLINICAL HISTORY: edema. TECHNIQUE: 2D digital imaging was performed. COMPARISON: CR,XR XR PORTABLE CHEST AP from 02/09/2021 CR,XR XR CHEST 2V PA LATERAL from 11/11/2021 CR XR SHOULDER LT COMPLETE 2+V from 11/14/2021 FINDINGS: Single AP portable view. Heart size is upper normal. The mediastinum is not widened. No new left lung findings. Increased markings in the right suprahilar region noted but appears simil ar to previous. No pleural effusions evident. Left shoulder prosthesis now evident, recently placed. IMPRESSION: No acute pulmonary findings on this single AP portable view of the chest. DATA REPOSITORY: RADIATION DOSE DELIVERED:
[2021-11-23] MEDS: Metoprolol 5 MG/5 ML VIAL IVP ×2 (14:22→15:05)
[2021-11-23 14:37] LABS: Abs Immature Grans 0.07 10^3/uL (0.0-0.06); Absolute Basophil Count 0.04 10^3/uL (0.0-0.2); Absolute Eosinophil Count 0.05 10^3/uL (0.0-0.7); Absolute Lymphocyte Count 1.02 10^3/uL (1.2-3.4); Absolute Monocyte Count 1.23 10^3/uL (0.1-0.8); Basophils % 0.4; Eosinophils % 0.5; HCT 34.4 % (40.0-50.0); Immature Grans % 0.7; Lymphocytes % 10.2; MCH 31.4 pg (27.0-33.0); MCV 98 fL (80-95); MPV 9.8 fL (8.0-11.0); Monocytes % 12.3; Neutrophils % 75.9; Platelet Count 419 10^3/uL (130-400); RDW 12.8 % (11.8-14.1); RDW-SD 45.9 fL; WBC 10.01 10^3/uL (4.4-10.8)
[2021-11-23 14:48] LABS: INR 1.2 (0.9-1.1); PTT Activated 27.6 sec (21.0-27.5); Prothrombin Time 11.8 sec (9.3-11.0)
[2021-11-23 14:51] LABS: ALT 41 U/L (16-63); AST 71 U/L (15-37); Albumin 2.3 g/dL (3.4-5.0); Alkaline Phosphatase 140 U/L (46-116); Anion Gap 8.6 mmol/L (3-11); BUN 6 mg/dL (7-18); Bilirubin, Total 1.1 mg/dL (0.2-1.0); CO2 28.4 mmol/L (21.0-32.0); CREATININE 1.2 mg/dL (0.70-1.30); Calcium 8.9 mg/dL (8.5-10.1); Chloride 100 mmol/L (98-107); Glucose 107 mg/dL (74-106); Magnesium 1.9 mg/dL (1.8-2.4); Potassium 3.2 mmol/L (3.5-5.1); Sodium 137 mmol/L (136-145); Total Protein 7.3 g/dL (6.4-8.2)
--- NOTE | 2021-11-23 14:52 | NUR.NOTE ---
when speaking with pt he reports falling about a week ago, which is how he injured left shoulder and needed surgery. pt has bruising on left shoulder, abdomen, and hip. pt also states he stopped taking all his medications, only takes 1 baby aspirin a day. ROGERIO
[2021-11-23] MEDS: Furosemide 40 MG/4 ML VIAL IVP (15:04)
[2021-11-23] MEDS: Propranolol 80 MG CAPCR 160 MG PO (15:04)
[2021-11-23] MEDS: Potassium Chloride 20 MEQ TABCR 40 MEQ PO (15:17)
[2021-11-23 15:18] LABS: Bilirubin Negative (Negative); Blood Negative (Negative); Clarity Clear (Clear); Glucose Negative (Negative); Ketones Negative (Negative); Leukocyte Esterase Negative (Negative); Nitrite Negative (Negative); Specific Gravity 1.015 (1.005-1.025); pH 7.5 (5-8)
[2021-11-23 15:24] LABS: Bacteria Negative HPF (Negative); C & S Indicated? No; Casts 0-2 Hyaline LPF (Negative); Crystals Negative HPF (Negative); Epithelial Cells Rare HPF (Negative); Mucus Trace (Negative); RBC Negative HPF (0-2); WBC Negative HPF (0-5)
--- NOTE | 2021-11-23 15:27 | W.ED.GENAD ---
Discharge Plan Disposition Patient Disposition: [facility] INPATIENT Condition: Serious Discharge Details Clinical Impression: A-fib, CHF (congestive heart failure) Admit Date/Time: 11/23/21 19:23 Admit Provider: Jerson Delarosa Attending Provider: Jerson Delarosa Primary Care Provider: Sherri Guzman V ED Provider: Domenic Mishra Discharge Data Discharge Date/Time-TO BE ENTERED AT DEPARTURE: 11/23/21 20:57 Medical Decision Making <Vinod Nuñez NP - Last Filed: 11/24/21 10:09> Patient presenting to the emergency department for multiple complaints. Patient reports recent discharge from hospital due to fall and left shoulder injury with surgical repair. He states the last 2 days he has had uncontrollable diarrhea and urinary symptoms. Patient also reports lower extremity swelling and some occasional rapid heart rate. Patient reports that he has only been taking 81 mg of aspirin and otherwise has not taken any of his other medications. Patient does state that he has no assistance while at home and is finding it difficult to care for himself. Physical exam shows significant irregular heart rhythm no specific abdominal tenderness and 2+ pitting edema of lower extremities. Hemoccult is negative. we will plan on checking labs and EKG. Patient does have significant history of acute on chronic diastolic heart failure, COPD, alcohol abuse and gastritis. Please see physician interpretation for full interpretation of EKG but patient is in atrial fibrillation with rapid ventricular response. Review of initial labs show stable CBC with hemoglobin of 11 which is improved from admission blood work. CMP does show potassium of 3.2 so we will give patient oral potassium, slight elevation of total bilirubin at 1.1 and AST of 71 with ALT of 41. Alk phos is 140 and patient has low albumin. Urinalysis is unremarkable for infection. Patient signed out pending chest x-ray, troponin, and BNP. Did give patient push doses of metoprolol and p.o. propanolol and attempt to admit patient for medication noncompliance with noted A. fib and RVR but hopefully trying to stabilize on p.o. medications to keep patient out of ICU or off of drips. <EDMAR Bobo - Last Filed: 11/23/21 20:11> Patient presenting to the emergency department for multiple complaints. Patient reports recent discharge from hospital due to fall and left shoulder injury with surgical repair. He states the last 2 days he has had uncontrollable diarrhea and urinary symptoms. Patient also reports lower extremity swelling and some occasional rapid heart rate. Patient reports that he has only been taking 81 mg of aspirin and otherwise has not taken any of his other medications. Patient does state that he has no assistance while at home and is finding it difficult to care for himself. Physical exam shows significant irregular heart rhythm no specific abdominal tenderness and 2+ pitting edema of lower extremities. Hemoccult is negative. we will plan on checking labs and EKG. Patient does have significant history of acute on chronic diastolic heart failure, COPD, alcohol abuse and gastritis. Please see physician interpretation for full interpretation of EKG but patient is in atrial fibrillation with rapid ventricular response. Review of initial labs show stable CBC with hemoglobin of 11 which is improved from admission blood work. CMP does show potassium of 3.2 so we will give patient oral potassium, slight elevation of total bilirubin at 1.1 and AST of 71 with ALT of 41. Alk phos is 140 and patient has low albumin. Urinalysis is unremarkable for infection. Patient signed out pending chest x-ray, troponin, and BNP. Did give patient push doses of metoprolol and p.o. propanolol and attempt to admit patient for medication noncompliance with noted A. fib and RVR but hopefully trying to stabilize on p.o. medications to keep patient out of ICU or off of drips. 1530: I assumed care of this 66-year-old gentleman from my colleague ASHLEY Nuñez, please see his initial HPI and examination. Patient recently admitted to our facility for shoulder surgery and subsequently discharged on the . It would appear as though he has not been compliant since then and now presents with multiple complaints most concerning that he is in A. fib with RVR and appears to be in CHF. Patient given Lopressor x2, oral potassium, IV Lasix, p.o. propanolol. When I reviewed his discharge summary from his recent admission it appeared as though she was also on verapamil. When I assumed care of the patient blood pressure was 118/85. Plan is to provide a single dose of IV verapamil as well as his oral dose. It would appear as though these medications did treat his A. fib with RVR well. Upon reevaluation his heart rate is now in the 80s, remains in A. fib but no longer with RVR Troponin is less than 50. BNP is 6337. This does fit his clinical picture given he has lower extremity edema. Given his noncompliance, presentation in A. fib with RVR, CHF, I believe that he requires admission. It should be noted that he needed changing after urinating, when lying flat he became subjectively short of breath and reported not feeling well, blood pressure did decrease into the 60s over 40s but upon sitting up he almost instantly began feeling better, heart rate in the 80s blood pressure in the low 100s over 50s. Case discussed with our hospitalist team Dr. Delarosa who is agreeable for admission. I was able to confirm with the patient that he is a full code. This documentation was generated using [employer] system, please disregard any oddities of phrase or misspellings. Medical Records Medical records reviewed: Yes I reviewed the patient's medical records. Imaging Data Radiologic Study: Attestation: I personally reviewed and interpreted this imaging study as follows: Imaging: X-Ray Radiologist's impression: Exam(s) XR PORTABLE CHEST AP EXAM: XR PORTABLE CHEST AP CLINICAL HISTORY: edema. TECHNIQUE: 2D digital imaging was performed. COMPARISON: CR,XR XR PORTABLE CHEST AP from 02/09/2021 CR,XR XR CHEST 2V PA LATERAL from 11/11/2021 CR XR SHOULDER LT COMPLETE 2+V from 11/14/2021 FINDINGS: Single AP portable view. Heart size is upper normal. The mediastinum is not widened. No new left lung findings. Increased markings in the right suprahilar region noted but appears similar to previous. No pleural effusions evident. Left shoulder prosthesis now evident, recently placed. IMPRESSION: No acute pulmonary findings on this single AP portable view of the chest. Lab Data Lab results reviewed: Yes I reviewed the patient's lab results. Labs: Laboratory Tests Range/Units 11/23/21 11/23/21 11/23/21 14:23 14:23 14:23 WBC (4.4-10.8) 10^3/uL 10.01 RBC (4.36-5.78) 10^6/uL 3.50 L Hgb (13.5-17.5) g/dL 11.0 L Hct (40.0-50.0) % 34.4 L MCV (80-95) fL 98 H MCH (27.0-33.0) pg 31.4 MCHC (32.0-36.0) % 32.0 RDW (11.8-14.1) % 12.8 Plt Count (130-400) 10^3/uL 419 H MPV (8.0-11.0) fL 9.8 Immature Gran % 0.7 Neutrophils % 75.9 Lymphocytes % 10.2 Monocytes % 12.3 Eosinophils % 0.5 Basophils % 0.4 Nucleated RBC % (0.0-0.3) % 0.0 Absolute Neutrophils (1.2-6.7) 10^3/uL 7.60 H Absolute Lymphocytes (1.2-3.4) 10^3/uL 1.02 L Absolute Monocytes (0.1-0.8) 10^3/uL 1.23 H Absolute Eosinophils (0.0-0.7) 10^3/uL 0.05 Absolute Basophils (0.0-0.2) 10^3/uL 0.04 PT Cancelled INR Cancelled APTT (21.0-27.5) sec Sodium (136-145) mmol/L 137 Potassium (3.5-5.1) mmol/L 3.2 L Chloride (98-107) mmol/L 100 Carbon Dioxide (21.0-32.0) mmol/L 28.4 Anion Gap (3-11) mmol/L 8.6 BUN (7-18) mg/dL 6 L Creatinine (0.70-1.30) mg/dL 1.2 Est GFR (CKD-EPI 2020) (mL/min/1.73m2) 66.70 Glucose (74-106) mg/dL 107 H Calcium (8.5-10.1) mg/dL 8.9 Magnesium (1.8-2.4) mg/dL 1.9 Total Bilirubin (0.2-1.0) mg/dL 1.1 H AST (15-37) U/L 71 H ALT (16-63) U/L 41 Alkaline Phosphatase (46-116) U/L 140 H Troponin I (<or=60) ng/L NT-Pro-B Natriuret Pep (<300) pg/mL Total Protein (6.4-8.2) g/dL 7.3 Albumin (3.4-5.0) g/dL 2.3 L Urine Color (Yellow) Urine Clarity (Clear) Urine pH (5-8) Ur Specific Melrose (1.005-1.025) Urine Protein (Negative) mg/dL Urine Ketones (Negative) mg/dL Urine Blood (Negative) Urine Nitrite (Negative) Urine Bilirubin (Negative) Urine Urobilinogen (Up TO 0.2) EU/dL Ur Leukocyte Esterase (Negative) Urine RBC (0-2) HPF Urine WBC (0-5) HPF Ur Epithelial Cells (Negative) HPF Urine Crystals (Negative) HPF Urine Bacteria (Negative) HPF Urine Casts (Negative) LPF Urine Mucus (Negative) Ur Culture Indicated? Urine Glucose (Negative) mg/dL Patient ABO/Rh Antibody Screen Range/Units 11/23/21 11/23/21 11/23/21 14:23 14:23 14:23 WBC (4.4-10.8) 10^3/uL RBC (4.36-5.78) 10^6/uL Hgb (13.5-17.5) g/dL Hct (40.0-50.0) % MCV (80-95) fL MCH (27.0-33.0) pg MCHC (32.0-36.0) % RDW (11.8-14.1) % Plt Count (130-400) 10^3/uL MPV (8.0-11.0) fL Immature Gran % Neutrophils % Lymphocytes % Monocytes % Eosinophils % Basophils % Nucleated RBC % (0.0-0.3) % Absolute Neutrophils (1.2-6.7) 10^3/uL Absolute Lymphocytes (1.2-3.4) 10^3/uL Absolute Monocytes (0.1-0.8) 10^3/uL Absolute Eosinophils (0.0-0.7) 10^3/uL Absolute Basophils (0.0-0.2) 10^3/uL PT 11.8 H INR 1.2 H APTT (21.0-27.5) sec 27.6 H Sodium (136-145) mmol/L Potassium (3.5-5.1) mmol/L Chloride (98-107) mmol/L Carbon Dioxide (21.0-32.0) mmol/L Anion Gap (3-11) mmol/L BUN (7-18) mg/dL Creatinine (0.70-1.30) mg/dL Est GFR (CKD-EPI 2020) (mL/min/1.73m2) Glucose (74-106) mg/dL Calcium (8.5-10.1) mg/dL Magnesium (1.8-2.4) mg/dL Total Bilirubin (0.2-1.0) mg/dL AST (15-37) U/L ALT (16-63) U/L Alkaline Phosphatase (46-116) U/L Troponin I (<or=60) ng/L < 50 NT-Pro-B Natriuret Pep (<300) pg/mL 6337 H Total Protein (6.4-8.2) g/dL Albumin (3.4-5.0) g/dL Urine Color (Yellow) Urine Clarity (Clear) Urine pH (5-8) Ur Specific Melrose (1.005-1.025) Urine Protein (Negative) mg/dL Urine Ketones (Negative) mg/dL Urine Blood (Negative) Urine Nitrite (Negative) Urine Bilirubin (Negative) Urine Urobilinogen (Up TO 0.2) EU/dL Ur Leukocyte Esterase (Negative) Urine RBC (0-2) HPF Urine WBC (0-5) HPF Ur Epithelial Cells (Negative) HPF Urine Crystals (Negative) HPF Urine Bacteria (Negative) HPF Urine Casts (Negative) LPF Urine Mucus (Negative) Ur Culture Indicated? Urine Glucose (Negative) mg/dL Patient ABO/Rh Cancelled Antibody Screen Range/Units 11/23/21 11/23/21 14:45 15:10 WBC (4.4-10.8) 10^3/uL RBC (4.36-5.78) 10^6/uL Hgb (13.5-17.5) g/dL Hct (40.0-50.0) % MCV (80-95) fL MCH (27.0-33.0) pg MCHC (32.0-36.0) % RDW (11.8-14.1) % Plt Count (130-400) 10^3/uL MPV (8.0-11.0) fL Immature Gran % Neutrophils % Lymphocytes % Monocytes % Eosinophils % Basophils % Nucleated RBC % (0.0-0.3) % Absolute Neutrophils (1.2-6.7) 10^3/uL Absolute Lymphocytes (1.2-3.4) 10^3/uL Absolute Monocytes (0.1-0.8) 10^3/uL Absolute Eosinophils (0.0-0.7) 10^3/uL Absolute Basophils (0.0-0.2) 10^3/uL PT INR APTT (21.0-27.5) sec Sodium (136-145) mmol/L Potassium (3.5-5.1) mmol/L Chloride (98-107) mmol/L Carbon Dioxide (21.0-32.0) mmol/L Anion Gap (3-11) mmol/L BUN (7-18) mg/dL Creatinine (0.70-1.30) mg/dL Est GFR (CKD-EPI 2020) (mL/min/1.73m2) Glucose (74-106) mg/dL Calcium (8.5-10.1) mg/dL Magnesium (1.8-2.4) mg/dL Total Bilirubin (0.2-1.0) mg/dL AST (15-37) U/L ALT (16-63) U/L Alkaline Phosphatase (46-116) U/L Troponin I (<or=60) ng/L NT-Pro-B Natriuret Pep (<300) pg/mL Total Protein (6.4-8.2) g/dL Albumin (3.4-5.0) g/dL Urine Color (Yellow) Yellow Urine Clarity (Clear) Clear Urine pH (5-8) 7.5 Ur Specific Melrose (1.005-1.025) 1.015 Urine Protein (Negative) mg/dL 30 H Urine Ketones (Negative) mg/dL Negative Urine Blood (Negative) Negative Urine Nitrite (Negative) Negative Urine Bilirubin (Negative) Negative Urine Urobilinogen (Up TO 0.2) EU/dL 1.0 H Ur Leukocyte Esterase (Negative) Negative Urine RBC (0-2) HPF Negative Urine WBC (0-5) HPF Negative Ur Epithelial Cells (Negative) HPF Rare Urine Crystals (Negative) HPF Negative Urine Bacteria (Negative) HPF Negative Urine Casts (Negative) LPF 0-2 Hyaline Urine Mucus (Negative) Trace Ur Culture Indicated? No Urine Glucose (Negative) mg/dL Negative Patient ABO/Rh A Positive Antibody Screen NEGATIVE ECG Data Attestation: I personally reviewed and interpreted this ECG (s) as follows: Interpretation: A. fib, ventricular rate of 137. No STEMI HPI <Vinod Nuñez NP - Last Filed: 11/24/21 10:09> General Mode of arrival: EMS. Date/Time Provider Initiated Documentation: 11/23/21 13:23. Information obtained by: patient, RN notes reviewed and old records reviewed. History of Present Illness 66 year old M presents to the emergency department with the chief complaint of Diarrhea and dysuria, described as moderate, with intensity rated at 6. Quality is described as aching, and is localized to the left and upper extremity. Patient reports no radiation. Patient started experiencing this day(s) (2) and it has been constant. No relieving factors improve symptom(s), No exacerbating factors reported . Patient notes denies fever/chills, loss of appetite, malaise and nausea/vomiting. Patient did receive the following treatments prior to arrival, Aspirin Related Data Home Medications Medication Instructions Recorded Confirmed aspirin 81 mg tablet,delayed 81 mg PO DAILY 01/22/20 11/23/21 release albuterol sulfate 90 mcg/actuation 2 puff inhalation Q6H PRN PRN 11/23/21 11/23/21 aerosol inhaler baclofen 10 mg tablet 10 mg PO TID PRN 11/23/21 11/23/21 bupropion HCl 150 mg tablet,12 hr 150 mg PO BID 11/23/21 11/23/21 sustained-release citalopram 20 mg tablet 20 mg PO QAM 11/23/21 11/23/21 cyclobenzaprine 10 mg tablet 10 mg PO TID PRN PRN 11/23/21 11/23/21 diclofenac sodium 1 % topical gel 4 g topical BID PRN PRN 11/23/21 11/23/21 gabapentin 800 mg tablet 800 mg PO TID 11/23/21 11/23/21 glycopyrrolate 9 mcg-formoterol 2 puff inhalation BID 11/23/21 11/23/21 4.8 mcg HFA aerosol inhaler (Bevespi Aerosphere) hydrocodone 10 mg-acetaminophen 1 - 2 tab PO QAM 11/23/21 11/23/21 325 mg tablet hydrocodone 7.5 mg-acetaminophen 1 tab PO QHS PRN 11/23/21 11/23/21 325 mg tablet lidocaine 5 % topical gel 1 applic topical QID PRN PRN 11/23/21 11/23/21 magnesium oxide 400 mg (241.3 mg 400 mg PO DAILY 11/23/21 11/23/21 magnesium) tablet oxycodone 10 mg tablet 10 mg PO QID PRN 11/23/21 11/23/21 pantoprazole 40 mg tablet,delayed 40 mg PO DAILY 11/23/21 11/23/21 release polyethylene glycol 3350 17 17 g PO DAILY PRN PRN 11/23/21 11/23/21 gram/dose oral powder propranolol 160 mg capsule,24 160 mg PO DAILY 11/23/21 11/23/21 hr,extended release sumatriptan succinate 25 mg tablet See Rx Instructions .Route .COMPLEX 11/23/21 11/23/21 terazosin 2 mg capsule 2 mg PO QHS 11/23/21 11/23/21 topiramate 50 mg tablet 50 mg PO BID 11/23/21 11/23/21 triamcinolone acetonide 0.1 % 1 applic topical BID 11/23/21 11/23/21 topical cream verapamil 120 mg tablet,extended 120 mg PO DAILY 11/23/21 11/23/21 release zolpidem 10 mg tablet 10 mg PO QHS PRN Insomnia 11/23/21 11/23/21 Allergies Allergy/AdvReac Type Severity Reaction Status Date / Time amlodipine Allergy Unknown Unverified 11/11/21 17:07 trazodone Allergy Unknown Unverified 11/11/21 17:07 diazepam AdvReac Intermediate Agitation Unverified 11/11/21 17:07 clonidine AdvReac Mild Dry mouth Unverified 11/11/21 17:07 lisinopril AdvReac Mild Cough Unverified 11/11/21 17:07 losartan AdvReac Mild Cough Unverified 11/11/21 17:07 tramadol AdvReac Nauseous Unverified 11/11/21 17:07 General Stated Complaint: GenMedical DAYSI: 2 Review of Systems <Vinod Nuñez NP - Last Filed: 11/24/21 10:09> Constitutional Constitutional: Denies chills, Denies fever(s) and Reports poor appetite Cardiovascular Cardiovascular: Denies chest pain, Reports rapid heart rate and Denies dyspnea Respiratory Respiratory: Denies cough and Denies dyspnea Gastrointestinal Gastrointestinal: Reports as per HPI, Denies abdominal pain, Denies melena, Denies bloating, Reports hematochezia, Denies change in bowel habits, Denies constipation, Reports fecal incontinence, Denies diarrhea, Reports loose stools, Denies nausea and Denies vomiting Genitourinary Genitourinary: Denies hematuria, Denies difficulty urinating, Denies urinary hesitancy, Reports urinary incontinence and Denies urinary urgency Musculoskeletal Musculoskeletal: Reports as per HPI, Reports arthralgias and Reports limited range of motion Integumentary/Breasts Skin/Breast: Denies rash and Reports unusual bruising PFS <Vinod Nuñez SECURITY SYSTEMS MANAGER - Last Filed: 11/24/21 10:09> All Active Problems (Updated 11/24/21 @ 08:54 by Jerson Delarosa) CHF (congestive heart failure) (Chronic) No-show for appointment (Acute) Left leg weakness (Acute) MCL sprain of right knee (Acute) Alcohol abuse (Chronic) Chest discomfort (Chronic) Acute on chronic diastolic heart failure (Acute) Bilateral pleural effusion (Acute) Falls (Acute) Discharge planning issues (Acute) DVT prophylaxis (Acute) Pulmonary nodule (Acute) Acute respiratory failure with hypoxia (Acute) Acute exacerbation of chronic obstructive pulmonary disease (Acute) Pneumonia (Acute) Acute respiratory distress (Acute) Femur fracture, right (Acute) Fracture, rib (Acute) A-fib (Chronic) Laceration of digital nerve of left thumb (Acute) Gastritis and duodenitis (Acute) Medical History Alcohol withdrawal Arthritis COPD (chronic obstructive pulmonary disease) Depression Hepatitis C Per H&P: s/p tx. . He had an abc CT earlier this year which showed a normal liver. Hypertension Neck fracture Per pt. states he broke his nevk 5-6 years ago. Upper GI bleed Varices of esophagus determined by endoscopy Surgical History History of cataract surgery History of cataract surgery History of hand surgery 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) As treatment for proximal humerus fx (DOI: 11/11/2021) History of surgery on wrist Social History Smoking/Tobacco Use Status: Current every day Tobacco Type: cigarettes Smoking risk assessment performed?: Yes Alcohol Intake: current Alcohol Intake frequency: a few times a week Drug use: Never Substance use type: does not use and unknown Current gender identity: male Do you feel safe at home: Yes Do you feel safe in your relationship?: Yes Additional Social history: lives alone Exam <Vinod Nuñez NP - Last Filed: 11/24/21 10:09> Const General: cooperative Orientation: alert, awake and oriented x3 Resp Effort & Inspection: normal respiratory effort and able to speak in complete sentences Auscultation: clear to auscultation bilaterally and diminished lung sounds bilaterally in the lower lung mckee Cardio Rate: tachycardic Rhythm: abnormal rhythm irregularly irregular Pulses: normal peripheral pulses GI Palpation: soft, not firm, no guarding, no masses, no pulsatile masses, not rigid, no splenomegaly and nontender Auscultation: normal bowel sounds Neuro General: patient alert, patient awake, patient oriented x3, gait normal and moves all extremities Extrem General: pedal edema bilaterally pitting and 2+ Course <Vinod Nuñez NP - Last Filed: 11/24/21 10:09> Vital Signs Vital signs: Vital Signs Temperature 37.2 C 11/23/21 13:17 Pulse 119 H 11/23/21 13:17 Respiratory Rate 31 H 11/23/21 13:17 Blood Pressure 134/96 H 11/23/21 13:17 Pulse Oximetry 98 11/23/21 13:17 Temperature 37.2 C 11/23/21 13:17 Pulse 117 H 11/23/21 15:05 Respiratory Rate 16 11/23/21 14:41 Respiratory Effort 11/23/21 13:23 Respiratory Depth Shallow 11/23/21 13:23 Respiratory Pattern Tachypnea 11/23/21 13:23 Blood Pressure 121/88 11/23/21 15:05 Pulse Oximetry 97 11/23/21 14:41 Oxygen Delivery Method Room Air 11/23/21 14:41 Oxygen Flow Rate 0 11/23/21 14:41 Lab/Test Results Lab/Test Results: Laboratory Tests Range/Units 11/23/21 11/23/21 11/23/21 14:23 14:23 14:23 WBC (4.4-10.8) 10^3/uL 10.01 RBC (4.36-5.78) 10^6/uL 3.50 L Hgb (13.5-17.5) g/dL 11.0 L Hct (40.0-50.0) % 34.4 L MCV (80-95) fL 98 H MCH (27.0-33.0) pg 31.4 MCHC (32.0-36.0) % 32.0 RDW (11.8-14.1) % 12.8 Plt Count (130-400) 10^3/uL 419 H MPV (8.0-11.0) fL 9.8 Immature Gran % 0.7 Neutrophils % 75.9 Lymphocytes % 10.2 Monocytes % 12.3 Eosinophils % 0.5 Basophils % 0.4 Nucleated RBC % (0.0-0.3) % 0.0 Absolute Neutrophils (1.2-6.7) 10^3/uL 7.60 H Absolute Lymphocytes (1.2-3.4) 10^3/uL 1.02 L Absolute Monocytes (0.1-0.8) 10^3/uL 1.23 H Absolute Eosinophils (0.0-0.7) 10^3/uL 0.05 Absolute Basophils (0.0-0.2) 10^3/uL 0.04 PT Cancelled INR Cancelled APTT (21.0-27.5) sec Sodium (136-145) mmol/L 137 Potassium (3.5-5.1) mmol/L 3.2 L Chloride (98-107) mmol/L 100 Carbon Dioxide (21.0-32.0) mmol/L 28.4 Anion Gap (3-11) mmol/L 8.6 BUN (7-18) mg/dL 6 L Creatinine (0.70-1.30) mg/dL 1.2 Est GFR (CKD-EPI 2020) (mL/min/1.73m2) 66.70 Glucose (74-106) mg/dL 107 H Calcium (8.5-10.1) mg/dL 8.9 Magnesium (1.8-2.4) mg/dL 1.9 Total Bilirubin (0.2-1.0) mg/dL 1.1 H AST (15-37) U/L 71 H ALT (16-63) U/L 41 Alkaline Phosphatase (46-116) U/L 140 H Total Protein (6.4-8.2) g/dL 7.3 Albumin (3.4-5.0) g/dL 2.3 L Urine Color (Yellow) Urine Clarity (Clear) Urine pH (5-8) Ur Specific [place] (1.005-1.025) Urine Protein (Negative) mg/dL Urine Ketones (Negative) mg/dL Urine Blood (Negative) Urine Nitrite (Negative) Urine Bilirubin (Negative) Urine Urobilinogen (Up TO 0.2) EU/dL Ur Leukocyte Esterase (Negative) Urine RBC (0-2) HPF Urine WBC (0-5) HPF Ur Epithelial Cells (Negative) HPF Urine Crystals (Negative) HPF Urine Bacteria (Negative) HPF Urine Casts (Negative) LPF Urine Mucus (Negative) Ur Culture Indicated? Urine Glucose (Negative) mg/dL Patient ABO/Rh Range/Units 11/23/21 11/23/21 11/23/21 14:23 14:23 15:10 WBC (4.4-10.8) 10^3/uL RBC (4.36-5.78) 10^6/uL Hgb (13.5-17.5) g/dL Hct (40.0-50.0) % MCV (80-95) fL MCH (27.0-33.0) pg MCHC (32.0-36.0) % RDW (11.8-14.1) % Plt Count (130-400) 10^3/uL MPV (8.0-11.0) fL Immature Gran % Neutrophils % Lymphocytes % Monocytes % Eosinophils % Basophils % Nucleated RBC % (0.0-0.3) % Absolute Neutrophils (1.2-6.7) 10^3/uL Absolute Lymphocytes (1.2-3.4) 10^3/uL Absolute Monocytes (0.1-0.8) 10^3/uL Absolute Eosinophils (0.0-0.7) 10^3/uL Absolute Basophils (0.0-0.2) 10^3/uL PT 11.8 H INR 1.2 H APTT (21.0-27.5) sec 27.6 H Sodium (136-145) mmol/L Potassium (3.5-5.1) mmol/L Chloride (98-107) mmol/L Carbon Dioxide (21.0-32.0) mmol/L Anion Gap (3-11) mmol/L BUN (7-18) mg/dL Creatinine (0.70-1.30) mg/dL Est GFR (CKD-EPI 2020) (mL/min/1.73m2) Glucose (74-106) mg/dL Calcium (8.5-10.1) mg/dL Magnesium (1.8-2.4) mg/dL Total Bilirubin (0.2-1.0) mg/dL AST (15-37) U/L ALT (16-63) U/L Alkaline Phosphatase (46-116) U/L Total Protein (6.4-8.2) g/dL Albumin (3.4-5.0) g/dL Urine Color (Yellow) Yellow Urine Clarity (Clear) Clear Urine pH (5-8) 7.5 Ur Specific [place] (1.005-1.025) 1.015 Urine Protein (Negative) mg/dL 30 H Urine Ketones (Negative) mg/dL Negative Urine Blood (Negative) Negative Urine Nitrite (Negative) Negative Urine Bilirubin (Negative) Negative Urine Urobilinogen (Up TO 0.2) EU/dL 1.0 H Ur Leukocyte Esterase (Negative) Negative Urine RBC (0-2) HPF Negative Urine WBC (0-5) HPF Negative Ur Epithelial Cells (Negative) HPF Rare Urine Crystals (Negative) HPF Negative Urine Bacteria (Negative) HPF Negative Urine Casts (Negative) LPF 0-2 Hyaline Urine Mucus (Negative) Trace Ur Culture Indicated? No Urine Glucose (Negative) mg/dL Negative Patient ABO/Rh Cancelled <EDMAR Bobo - Last Filed: 11/23/21 20:11> Critical Care Time Critical Care Time: Yes Total Critical Care Time: 45 Attestation: Upon my evaluation, this patient had a high probability of clinically significant, life-threatening deterioration due to their current medical conditions, which required my direct attention, intervention, and personal management. I have personally provided greater than 30 minutes of critical care time exclusive of the time spend on separately billable procedures. Time includes obtaining a history, examining the patient, pulse oximetry, review of laboratory data, radiology results, discussion with consultants, arranging urgent treatment with development of a management plan, evaluation of patient's response to treatment, and monitoring for potential decompensation. Interventions were performed as documented above. Sign Out <Vinod Nuñez NP - Last Filed: 11/24/21 10:09> Sign Out Data: Sign Out Comment: Patient pending troponin and BNP along with reassessments for A. fib with RVR attempting to start patient on p.o. meds instead of IV drip. Plan if patient stabilizes that he is admitted for medication noncompliance and A. fib with RVR and question of possible CHF acute exacerbation due to lower extremity edema. Unknown cause of acute diarrhea and urinary symptoms Last updated by Vinod Nuñez NP at 11/23/21 15:41
[2021-11-23 16:36] LABS: NT-proBNP 6337 pg/mL (<300); Troponin I < 50 ng/L (<or=60)
[2021-11-23] MEDS: Verapamil 5 MG/2 ML VIAL 10 MG IVP (16:38)
[2021-11-23] MEDS: Verapamil 80 MG TAB 120 MG PO (16:44)
[2021-11-23] MEDS: HYDROcodone 5/Acetaminophen 325 TAB PO (17:01)
--- NOTE | 2021-11-23 19:22 | W.PM.HP.N ---
Date of service: 11/23/21 Time of Service: : Assessment and Plan Assessment and plan (1) Acute on chronic diastolic heart failure: Start date: 11/23/21 Status: Acute Assessment and plan: This is a 66-year-old gentleman who has not been taking his medical therapy recently with rapid ventricular response to chronic atrial fibrillation now presenting with fluid overload clinically and respond to IV Lasix. He also is hypokalemic and will be placed on oral potassium supplement as we diurese. Continuation of IV Lasix and monitoring labs while hospitalized. Cardiac monitoring while treating. Update echocardiogram. Patient is a full code but has expressed wishes to be a DNR/DNI and this should be confirmed with CODE STATUS changed as appropriate and COLST form to be filled out. (2) A-fib: Status: Chronic Assessment and plan: Chronic atrial fibrillation with usually rate controlled off anticoagulation because of alcoholic cirrhosis and risk of bleeding. Now rate controlled with blood pressure soft but improving as we diurese. Monitor cardiac monitoring and update CODE STATUS. Restart verapamil and beta-clyde with metoprolol to be used short-term until blood pressure stabilizes with diuresis. Propanolol LA was given in the ED x1. Qualifiers: Atrial fibrillation type: longstanding persistent Qualified Code(s): I48.11 - Longstanding persistent atrial fibrillation (3) Acute exacerbation of chronic obstructive pulmonary disease: Status: Acute Assessment and plan: Maximize inhaler therapy hold on diuretic for now. O2 supplementation as needed. (4) Closed fracture of left proximal humerus: Status: Resolved Assessment and plan: Patient has had repair of this fracture and is in rehabilitation which does not appear to have gone well at home. Consider long-term placement for rehabilitation which would assure patient's safety and medication compliance which appears to be problematic. He is at risk for falls at home with his present state of living. He does live alone. Follow-up orthopedics as scheduled. History of Present Illness History of Present Illness Chief Complaint: Palpitations with Dyspnea Narrative: This is a 66-year-old male patient who recent was hospitalized for a fall with injury to his left humerus now status post open repair and discharged wearing sling according to patient about a week ago. Has been home with some services but not fully involved with rehabilitation and lives alone. He said that he was not taking most of his medications and reported to the ED with complaints of uncontrolled diarrhea and urinary symptoms for 2 days prior to presentation and lower extremity swelling with a fast heart rate and palpitations. He told the ED doctor he was only taking aspirin and not his usual medicines for rate control with chronic atrial fibrillation. He has a history of alcohol abuse but nothing significant recently along with alcoholic cirrhosis and chronic changes. He does present at times with heart failure and does also have COPD on inhalers at home. As stated he is noncompliant with medical therapy and a vague historian. In the ED he was found to have acute decompensated CHF with an elevated BNP and significant clinical findings of fluid overload responded to IV Lasix. He also was given oral potassium. He was given the dose of propanolol LA 160 mg and verapamil 120 mg which were his usual outpatient medications with the verapamil extended release as best assessed by reviewing ED notes. He did have slightly low blood pressure and this improved prior to being brought to [facility]. The patient has stated in the past that he did not want resuscitation and CODE STATUS needs to be reviewed with the patient. Full code for now. He is comfortable with his left arm not in his sling and as that is a vague historian offering little more to his story of recent admission. He has not had any fever or chills and denies any productive cough. He is having expiratory wheezing at the bedside and states this is a problem though I do not think he is taking his inhalers chronically. Review of Systems Narrative: 13 point review of systems otherwise unrevealing or stable. Patient does have chronic pain and is on narcotics though he does have a history of alcoholism. He also has had use of cocaine in the recent past. [facility] All Active Problems (Updated 11/24/21 @ 08:54 by Jerson Delarosa) CHF (congestive heart failure) (Chronic) No-show for appointment (Acute) Left leg weakness (Acute) MCL sprain of right knee (Acute) Alcohol abuse (Chronic) Chest discomfort (Chronic) Acute on chronic diastolic heart failure (Acute) Bilateral pleural effusion (Acute) Falls (Acute) Discharge planning issues (Acute) DVT prophylaxis (Acute) Pulmonary nodule (Acute) Acute respiratory failure with hypoxia (Acute) Acute exacerbation of chronic obstructive pulmonary disease (Acute) Pneumonia (Acute) Acute respiratory distress (Acute) Femur fracture, right (Acute) Fracture, rib (Acute) A-fib (Chronic) Laceration of digital nerve of left thumb (Acute) Gastritis and duodenitis (Acute) Medical History Alcohol withdrawal Arthritis COPD (chronic obstructive pulmonary disease) Depression Hepatitis C Per H&P: s/p tx. . He had an abc CT earlier this year which showed a normal liver. Hypertension Neck fracture Per pt. states he broke his nevk 5-6 years ago. Upper GI bleed Varices of esophagus determined by endoscopy Surgical History History of cataract surgery History of cataract surgery History of hand surgery 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) As treatment for proximal humerus fx (DOI: 11/11/2021) History of surgery on wrist Social History Smoking/Tobacco Use Status: Current every day Tobacco Type: cigarettes Smoking risk assessment performed?: Yes Alcohol Intake: current Alcohol Intake frequency: a few times a week Drug use: Never Substance use type: does not use and unknown Current gender identity: male Do you feel safe at home: Yes Do you feel safe in your relationship?: Yes Additional Social history: lives alone Meds Allergies and Home Medications Allergies Allergy/AdvReac Type Severity Reaction Status Date / Time amlodipine Allergy Unknown Unverified 11/11/21 17:07 trazodone Allergy Unknown Unverified 11/11/21 17:07 diazepam AdvReac Intermediate Agitation Unverified 11/11/21 17:07 clonidine AdvReac Mild Dry mouth Unverified 11/11/21 17:07 lisinopril AdvReac Mild Cough Unverified 11/11/21 17:07 losartan AdvReac Mild Cough Unverified 11/11/21 17:07 tramadol AdvReac Nauseous Unverified 11/11/21 17:07 Home Medications Medication Instructions Recorded Confirmed Type aspirin 81 mg tablet,delayed 81 mg PO DAILY 01/22/20 11/23/21 History release albuterol sulfate 90 mcg/actuation 2 puff inhalation Q6H PRN PRN 11/23/21 11/23/21 History aerosol inhaler baclofen 10 mg tablet 10 mg PO TID PRN 11/23/21 11/23/21 History bupropion HCl 150 mg tablet,12 hr 150 mg PO BID 11/23/21 11/23/21 History sustained-release citalopram 20 mg tablet 20 mg PO QAM 11/23/21 11/23/21 History cyclobenzaprine 10 mg tablet 10 mg PO TID PRN PRN 11/23/21 11/23/21 History diclofenac sodium 1 % topical gel 4 g topical BID PRN PRN 11/23/21 11/23/21 History gabapentin 800 mg tablet 800 mg PO TID 11/23/21 11/23/21 History glycopyrrolate 9 mcg-formoterol 2 puff inhalation BID 11/23/21 11/23/21 History 4.8 mcg HFA aerosol inhaler (Bevespi Aerosphere) hydrocodone 10 mg-acetaminophen 1 - 2 tab PO QAM 11/23/21 11/23/21 History 325 mg tablet hydrocodone 7.5 mg-acetaminophen 1 tab PO QHS PRN 11/23/21 11/23/21 History 325 mg tablet lidocaine 5 % topical gel 1 applic topical QID PRN PRN 11/23/21 11/23/21 History magnesium oxide 400 mg (241.3 mg 400 mg PO DAILY 11/23/21 11/23/21 History magnesium) tablet oxycodone 10 mg tablet 10 mg PO QID PRN 11/23/21 11/23/21 History pantoprazole 40 mg tablet,delayed 40 mg PO DAILY 11/23/21 11/23/21 History release polyethylene glycol 3350 17 17 g PO DAILY PRN PRN 11/23/21 11/23/21 History gram/dose oral powder propranolol 160 mg capsule,24 160 mg PO DAILY 11/23/21 11/23/21 History hr,extended release sumatriptan succinate 25 mg tablet See Rx Instructions .Route .COMPLEX 11/23/21 11/23/21 History terazosin 2 mg capsule 2 mg PO QHS 11/23/21 11/23/21 History topiramate 50 mg tablet 50 mg PO BID 11/23/21 11/23/21 History triamcinolone acetonide 0.1 % 1 applic topical BID 11/23/21 11/23/21 History topical cream verapamil 120 mg tablet,extended 120 mg PO DAILY 11/23/21 11/23/21 History release zolpidem 10 mg tablet 10 mg PO QHS PRN Insomnia 11/23/21 11/23/21 History Exam Narrative Exam Narrative: General: Patient appears older than stated age, alert and oriented at least to person and place but vague in his history with recent events. He is a poor historian. He is in no acute distress. HEENT: Normocephalic, eyes with pupils equal and reactive light symmetrically, extraocular movement tact and sclera anicteric. Oropharynx with dry mucosa. Neck: Supple without JVD. Back: Stooped posture without CVA tenderness. Lungs: Bronchovesicular breath sounds diffusely with increased expiratory phase and expiratory wheeze, inspiratory coarse crackles over bases with decreased aeration both bases without focalizing. Dullness to percussion over both bases. Heart: Irregularly irregular rhythm with normal rate, no appreciable murmur or gallop with distant heart sounds. Abdomen: Obese contour, soft and nontender to palpation with no palpable hepatosplenomegaly. Genitalia/rectal: Exam deferred. Extremities: 1+ pitting edema both lower extremities which is soft edema, no cyanosis or clubbing. Fair capillary refill. Joints without swelling but decreased range of motion. Especially left shoulder status post repair of fractured humerus with clean bandage overlying surgical scar. Skin: Warm, moist and normal color. Rough texture with actinic changes over sun exposed areas. Neuro: Cranial nerves II through XII gross intact, no focalizing motor deficits or tremor. Psych: Flattened affect with normal mood. No abnormal thought processes manifested the patient is a poor historian and vague in conversation. Remote memory grossly intact and recent memory less intact. His story is continuously changing. Results Imaging Imaging Studies: EXAM:? XR PORTABLE CHEST AP 11/23/2021 CLINICAL HISTORY: ? edema. ? TECHNIQUE:? 2D digital imaging was performed. COMPARISON:? CR,XR XR PORTABLE CHEST AP from 02/09/2021 CR,XR XR CHEST 2V PA ? LATERAL from 11/11/2021 CR XR SHOULDER LT COMPLETE 2+V from 11/14/2021 FINDINGS: Single AP portable view. Heart size is upper normal.? The mediastinum is not widened. No new left lung findings.? Increased markings in the right suprahilar region noted but appears similar to previous. No pleural effusions evident. Left shoulder prosthesis now evident, recently placed. IMPRESSION: No acute pulmonary findings on this single AP portable view of the chest. Labs Result diagrams: 11/24/21 06:35 11/24/21 06:35 Labs: Laboratory Results - last 24 hr 11/23/21 11/23/21 11/23/21 14:23 14:23 14:23 WBC 10.01 RBC 3.50 L Hgb 11.0 L Hct 34.4 L MCV 98 H MCH 31.4 MCHC 32.0 RDW 12.8 Plt Count 419 H MPV 9.8 Immature Gran % 0.7 Neutrophils % 75.9 Lymphocytes % 10.2 Monocytes % 12.3 Eosinophils % 0.5 Basophils % 0.4 Nucleated RBC % 0.0 Absolute Neutrophils 7.60 H Absolute Lymphocytes 1.02 L Absolute Monocytes 1.23 H Absolute Eosinophils 0.05 Absolute Basophils 0.04 PT Cancelled INR Cancelled APTT Sodium 137 Potassium 3.2 L Chloride 100 Carbon Dioxide 28.4 Anion Gap 8.6 BUN 6 L Creatinine 1.2 Est GFR (CKD-EPI 2020) 66.70 Glucose 107 H Calcium 8.9 Magnesium 1.9 Total Bilirubin 1.1 H AST 71 H ALT 41 Alkaline Phosphatase 140 H Troponin I NT-Pro-B Natriuret Pep Total Protein 7.3 Albumin 2.3 L Urine Color Urine Clarity Urine pH Ur Specific [place] Urine Protein Urine Ketones Urine Blood Urine Nitrite Urine Bilirubin Urine Urobilinogen Ur Leukocyte Esterase Urine RBC Urine WBC Ur Epithelial Cells Urine Crystals Urine Bacteria Urine Casts Urine Mucus Ur Culture Indicated? Urine Glucose Patient ABO/Rh Antibody Screen 11/23/21 11/23/21 11/23/21 14:23 14:23 14:23 WBC RBC Hgb Hct MCV MCH MCHC RDW Plt Count MPV Immature Gran % Neutrophils % Lymphocytes % Monocytes % Eosinophils % Basophils % Nucleated RBC % Absolute Neutrophils Absolute Lymphocytes Absolute Monocytes Absolute Eosinophils Absolute Basophils PT 11.8 H INR 1.2 H APTT 27.6 H Sodium Potassium Chloride Carbon Dioxide Anion Gap BUN Creatinine Est GFR (CKD-EPI 2020) Glucose Calcium Magnesium Total Bilirubin AST ALT Alkaline Phosphatase Troponin I < 50 NT-Pro-B Natriuret Pep 6337 H Total Protein Albumin Urine Color Urine Clarity Urine pH Ur Specific [place] Urine Protein Urine Ketones Urine Blood Urine Nitrite Urine Bilirubin Urine Urobilinogen Ur Leukocyte Esterase Urine RBC Urine WBC Ur Epithelial Cells Urine Crystals Urine Bacteria Urine Casts Urine Mucus Ur Culture Indicated? Urine Glucose Patient ABO/Rh Cancelled Antibody Screen 11/23/21 11/23/21 14:45 15:10 WBC RBC Hgb Hct MCV MCH MCHC RDW Plt Count MPV Immature Gran % Neutrophils % Lymphocytes % Monocytes % Eosinophils % Basophils % Nucleated RBC % Absolute Neutrophils Absolute Lymphocytes Absolute Monocytes Absolute Eosinophils Absolute Basophils PT INR APTT Sodium Potassium Chloride Carbon Dioxide Anion Gap BUN Creatinine Est GFR (CKD-EPI 2020) Glucose Calcium Magnesium Total Bilirubin AST ALT Alkaline Phosphatase Troponin I NT-Pro-B Natriuret Pep Total Protein Albumin Urine Color Yellow Urine Clarity Clear Urine pH 7.5 Ur Specific [place] 1.015 Urine Protein 30 H Urine Ketones Negative Urine Blood Negative Urine Nitrite Negative Urine Bilirubin Negative Urine Urobilinogen 1.0 H Ur Leukocyte Esterase Negative Urine RBC Negative Urine WBC Negative Ur Epithelial Cells Rare Urine Crystals Negative Urine Bacteria Negative Urine Casts 0-2 Hyaline Urine Mucus Trace Ur Culture Indicated? No Urine Glucose Negative Patient ABO/Rh A Positive Antibody Screen NEGATIVE Last Vital Signs Temp 37.2 C 11/23/21 13:17 Pulse 131 H 11/23/21 18:33 Resp 28 H 11/23/21 19:10 BP 51/20 L 11/23/21 18:33 Pulse Ox 99 11/23/21 19:10
[2021-11-23 20:45] LABS: Source Nasal/Nares
[2021-11-23 21:17] LABS: COVID-19 PCR Negative (Negative)
[2021-11-23] MEDS: Acetaminophen 325 MG TAB PO (21:50)
--- NOTE | 2021-11-23 21:50 | TELEP.MEDR_ITS ---
Date of service: 11/23/21 Time of Service: 21:50 Telepharmacy Home Med Rec Allergies Allergies: amlodipine Allergy (Unknown, Unverified 11/11/21 17:07) trazodone Allergy (Unknown, Unverified 11/11/21 17:07) diazepam Adverse Reaction (Intermediate, Unverified 11/11/21 17:07) Agitation clonidine Adverse Reaction (Mild, Unverified 11/11/21 17:07) Dry mouth lisinopril Adverse Reaction (Mild, Unverified 11/11/21 17:07) Cough losartan Adverse Reaction (Mild, Unverified 11/11/21 17:07) Cough tramadol Adverse Reaction (Unverified 11/11/21 17:07) Nauseous Interview Person Interviewed: Patient Quality Quality of Interview/Accuracy of Medication List: Good Sources Sources used to compile medication lsit: [employer] Medication List and Other (VITL and PDMP) Changes made to Home Medication List: ADDITIONS: Albuterol 90 mcg inhaler 2 puffs inhaled q6h prn Baclofen 10 mg po tid prn Bevespi 9-4.8 2 puffs inhaled q12h Bupropion SR 150 mg po bid Citalopram 20 mg po qam Cyclobenzaprin 10 mg po tid prn Diclofenac 1% gel 4 grams aaa bid prn Gabapentin 800 mg po tid Hydrocodone/APAP 10/325 2 tabs po qam Hydrocodone/APAP 7.5/325 1 tab po qhs Lidocaine 5% aaa qid prn Magnesium oxide 400 mg po qday Oxycodone 10 mg po 4 times daily prn Pantoprazole 40 mg po qday Polyethylene glycol 3350 17 grams po qday prn Propranolol ER 160 mg po qday Sumatriptan (SEE NOTES) 1 tab po at onset of headache, repeat after at least 2 hours if no relief, max 4 tabs/24 hours Terazosin 2 mg po qhs Topiramate 50 mg po bid Triamcinolone 0.1% aaa bid Verapamil ER 120 mg po qday Zolpidem 10 mg po hs prn DELETIONS: None CHANGES: None Additional Notes Additional Notes: Pt reports that he doesn't take oxycodone or baclofen, VITL and PDMP indicate that pt just received prescriptions for these on 11/18/21 (oxycodone authorized for 20 tablets- 5 day supply), pharmacy where these were filled is currently closed and so unable to verify if pt has picked these up already. Pt unable to confirm strength of sumatriptan- VITL shows pt last got 50 mg in 2019. Recommended Changes Recommended Changes(reason for recommendation): Pt potentially a candidate for naloxone rescue tx if oxycodone is accurate- total 87.5 MME/day. Attestation: The home medication list is now updated to the best of my knowledge and is ready to be reconciled by the provider. Please contact the TelePharmacy Medication Reconciliation Pharmacist at for any questions.
[2021-11-23] MEDS: Albuterol/Ipratropium 3 ML UPD VIAL UPD (21:51)
[2021-11-23] MEDS: Metoprolol 12.5 MG TAB PO (22:33)
[2021-11-23] MEDS: Potassium Chloride 20 MEQ TABCR PO (22:34)
[2021-11-23 22:50] LABS: TSH (W/Ref FT4) 1.09 uIU/mL (0.36-3.74)
[2021-11-24] VITALS (13 sets, daily range): BP systolic 98–128; BP diastolic 65–92; PULSE 64–97; RESP 4–22; TEMP 36.1–37.6; O2SAT 94–100
--- NOTE | 2021-11-24 | DI.US_ITS ---
APPROVED REPORT EXAM: Comprehensive 2D, Doppler, and color-flow Echocardiogram Patient Location: In-Patient Room/Bed: 214 Outpatient Coder: Naty Menendez RDCS (AE) Indications: CHF Other Information Study Quality: Fair. Technically limited study due to body habitus, inability to position patient exa m done supine, shoulder injury.. Conclusion Normal left ventricular wall thickness and chamber size. Estimated ejection fraction is 40%. There is mild global hypokinesis Normal right ventricular size and systolic function Both atria are mildly dilated Normal aortic valve without stenosis or regurgitation Normal mitral valve with moderate regurgitation Normal tricuspid valve with mild to moderate regurgitation. Estimated right ventricular systolic pre ssure is 30 mmHg Wall motion Left Ventricle The left ventricle is normal size. Left ventricular systolic function is mildly decreased. There is n ormal left ventricular wall thickness. There is global hypokinesis of the left ventricle. There is no ventricular septal defect visualized. LVEF is 40%. Right Ventricle Right ventricle is grossly normal in size. Right ventricular systolic function is grossly normal. The RVSP is 30mmHg. Atria Left atrium is mildly dilated. Right atrium is mildly dilated. The interatrial septum is intact with no evidence for an atrial septal defect. Aortic Valve The aortic valve is normal in structure. Aortic valve is trileaflet. There is no aortic valvular sten osis. No aortic regurgitation is present. Mitral Valve The mitral valve is normal in structure. No evidence of mitral valve stenosis. Moderate mitral regurg itation. Tricuspid Valve The tricuspid valve is normal in structure. There is no tricuspid valve stenosis. Mild to moderate tr icuspid regurgitation. Pulmonic Valve The pulmonary valve is normal in structure. There is no pulmonic valvular stenosis. There is no pulmo christiano valvular regurgitation. Great Vessels The aortic root is normal in size. Ascending aorta is not well visualized. IVC is normal in size and collapses >50% with inspiration. Pericardium There is no pericardial effusion. 2D Dimensions IVSD d PLAX 1.06 cm M: 0.6-1.2 LV Vol A2C d MOD 100.7 mL LVPW d PLAX 1.08 cm M: 0.6 - 1.2 LV Vol A4C d MOD 88.2 mL LVID d PLAX 5.10 cm M: 4.2 - 5.8 LA vol/ BSA A2C s A-L 33.5 mL/m2 LVDs 4.20 cm M: 2.5 - 4.0 LA vol/ BSA A4C s A-L 36.2 mL/m2 Ao Root d 3.43 cm M: 3.1 - 3.7 LA Vol/ BSA Biplane s A-L 36.7 mL/m2 RA Area A4C 22.46 cm2 LA Area A4C s MOD 21.80 cm2 RA Vol/ BSA A4C s A-L 32.4 mL/m2 LA Area A2C s MOD 22.10 cm2 LV EF Teichholz 36.3 % LV EF A4C MOD 40.5 % LVEF (Farrar's) 39.12 % M: 52 - 72 LV EF A2C MOD 40.0 % LV Volume 71.96 mL M: 62 - 150 LV EF Biplane MOD 39.1 % LV Volume Index 4.53 mL/m2 M: 34 - 74 SV 37.51 mL LV Vol Biplane MOD 95.9 mL SV Index 18.79 mL/m2 FS 17.50 % M-Mode TAPSE 1.32 cm (M/F) >1.7 LV Diastology MV E' medial 0.106 (>0.07 m/s) MV E Vmax 0.82 (0.4-1.3 m/s) LV E/e MED 7.75 (<14) MV E/E' medial 7.78 Aortic Valve LVOT Area 3.74 cm2 AoV Area Vmax 3.08 cm2 LVOT Vmax 0.63 m/s AoV Area/ BSA (Vmax) 1.54 cm2/m2 LVOT Mean Max. 0.41 m/s BOB Mean Max. 2.55 cm2 LVOT Peak Grad 1.6 mmHg BOB Mean Max. Index 1.28 cm2/m2 LVOT Mean Grad 0.8 mmHg LVOT VTI 0.084 m LVOT Diam s 2.15 cm AoV Vmax 0.76 m/s Velocity Ratio 0.82 AoV Mean Max. 0.60 m/s AoV Peak Grad 2.3 mmHg LVOT SV 31.31 mL AoV Mean Grad 1.6 mmHg AoV VTI 0.115 m AoV Area VTI 2.72 cm2 AoV Area/ BSA (VTI) 1.36 cm/m2 Mitral Valve MV DT 165 (160-240 msec) MV PHT 48 msec MV Area PHT 4.61 cm2 MV VTI 0.224 m MV Area VTI 1.40 (4.0-6.0 cm2) Pulmonary Valve PV Vmax 0.64 (0.5-1.5 m/s) RVOT Peak Gr. 0.53 mmHg PV Peak Grad 1.7 mmHg RVOT Mean Gr. 0.25 mmHg PV Mean Grad 1.0 mmHg RVOT VTI 0.048 m PV VTI 0.129 m RVOT Vmax 0.36 m/s Tricuspid Valve TR Peak Grad 26.9 mmHg TR Vmax 2.60 m/s RA Pressure 3.00 mmHg RVSP (TR) 30.0 mmHg
[2021-11-24] MEDS: Zolpidem 10 MG TAB PO ×2 (00:35→22:46)
[2021-11-24] MEDS: oxyCODONE 5 MG TAB PO ×4 (00:35→22:46)
[2021-11-24] MEDS: Metoprolol 12.5 MG TAB PO ×3 (06:01→22:46)
[2021-11-24] MEDS: Albuterol/Ipratropium 3 ML UPD VIAL UPD (06:40)
[2021-11-24 06:59] LABS: Abs Immature Grans 0.07 10^3/uL (0.0-0.06); Absolute Basophil Count 0.06 10^3/uL (0.0-0.2); Absolute Lymphocyte Count 1.84 10^3/uL (1.2-3.4); Absolute Monocyte Count 1.06 10^3/uL (0.1-0.8); Absolute Neutrophil Count 5.79 10^3/uL (1.2-6.7); Basophils % 0.7; Eosinophils % 1.1; HCT 31.7 % (40.0-50.0); HGB 10.2 g/dL (13.5-17.5); Immature Grans % 0.8; Lymphocytes % 20.6; MCH 31.6 pg (27.0-33.0); MCHC 32.2 % (32.0-36.0); MCV 98 fL (80-95); MPV 10.1 fL (8.0-11.0); Monocytes % 11.9; Neutrophils % 64.9; Platelet Count 346 10^3/uL (130-400); RBC 3.23 10^6/uL (4.36-5.78); RDW 12.9 % (11.8-14.1); WBC 8.92 10^3/uL (4.4-10.8)
[2021-11-24 07:18] LABS: INR 1.2 (0.9-1.1); Prothrombin Time 11.7 sec (9.3-11.0)
[2021-11-24 07:29] LABS: ALT 44 U/L (16-63); AST 76 U/L (15-37); Albumin 2.3 g/dL (3.4-5.0); Alkaline Phosphatase 136 U/L (46-116); BUN 12 mg/dL (7-18); Bilirubin, Total 0.9 mg/dL (0.2-1.0); CREATININE 1.6 mg/dL (0.70-1.30); Calcium 9.2 mg/dL (8.5-10.1); Chloride 100 mmol/L (98-107); Estimated GFR 47.23 (mL/min/1.73m2); Glucose 93 mg/dL (74-106); Magnesium 1.9 mg/dL (1.8-2.4); Potassium 4.1 mmol/L (3.5-5.1); Sodium 136 mmol/L (136-145)
[2021-11-24] MEDS: Baclofen 10 MG TAB PO (07:31)
[2021-11-24] MEDS: Acetaminophen 325 MG TAB PO (07:31)
[2021-11-24] MEDS: Normal Saline Flush 10 ML SYR IVP ×3 (07:39→15:32)
[2021-11-24] MEDS: Furosemide 40 MG/4 ML VIAL IVP ×2 (07:39→15:33)
[2021-11-24] MEDS: Topiramate 50 MG TAB PO ×2 (09:44→20:05)
[2021-11-24] MEDS: Gabapentin 800 MG TAB PO ×3 (09:44→20:05)
[2021-11-24] MEDS: Aspirin E.C. 81 MG TABEC PO (09:44)
[2021-11-24] MEDS: Potassium Chloride 20 MEQ TABCR PO ×2 (09:44→20:05)
[2021-11-24] MEDS: Magnesium Oxide 400 MG TAB PO (09:45)
[2021-11-24] MEDS: Pantoprazole 40 MG TABCR PO (09:45)
[2021-11-24] MEDS: buPROPion-CR 150 MG TABCR PO ×2 (09:45→20:05)
[2021-11-24] MEDS: Citalopram 20 MG TAB PO (09:57)
--- NOTE | 2021-11-24 10:20 | PT.INIE ---
Date of service: 11/24/21 Time of Service: 10:10 PT Notes Visit Reasons: Acute CHF,Atrial Fibrillation with RVR Physical Therapy Inpatient Initial Evaluation Date: 11/24/2021 Referring Doctor:? Jerson George MD PT Orders: PT CONSULT:? Limited ability Precautions: Fall. Standard. Per Dr. Hastings as of 11/14/2021: Reverse TSA protocol.? Should remove sling while in bed or resting.? Recommend sling when ambulatory or out of home.? Gentle passive range of motion to the shoulder.? Active range of motion elbow, wrist, and hand.? May use upper extremity gently for all essential ADLs including active range of motion within a limited arc with light weight bearing. Patient Profile/Admitting Diagnosis:? Patient is a 66-year-old male patient who presented to the ED on 11/23/2021 due to uncontrolled diarrhea, urinary symptoms, LE swelling, fast heart rate and palpitations.? Patient is diagnosed with displaced complex proximal humeral fracture and long head of triceps tendon incarceration sustained from a fall on 11/13/2021 and is S/P L rTSA? and R open biceps tenodesis on postoperative day 8.? He also has diagnoses of acute on chronic diastolic heart failure, AF, and COPD exacerbation. PMHX: All Active Problems?(Updated 11/12/21 @ 03:52 by Jerson Delarosa) Atrial fibrillation with rapid ventricular response (Acute) Closed left humeral fracture (Acute) Closed fracture of left proximal humerus (Acute 11/11/21) MCL sprain of right knee (Acute) Alcohol abuse (Chronic) Chest discomfort (Chronic) Acute on chronic diastolic heart failure (Acute) Bilateral pleural effusion (Acute) Falls (Acute) Discharge planning issues (Acute) DVT prophylaxis (Acute) Pulmonary nodule (Acute) Hyponatremia (Chronic) Acute respiratory failure with hypoxia (Acute) Acute exacerbation of chronic obstructive pulmonary disease (Acute) Pneumonia (Acute) Acute respiratory distress (Acute) Femur fracture, right (Acute) Fracture, rib (Acute) A-fib (Chronic) Laceration of digital nerve of left thumb (Acute) Gastritis and duodenitis (Acute) Medical History? Alcohol withdrawal Arthritis COPD (chronic obstructive pulmonary disease) Depression Hepatitis C Per H&P: s/p tx. . He had an abc CT earlier this year which showed a normal liver. Hypertension Neck fracture Per pt. states he broke his nevk 5-6 years ago Upper GI bleed Varices of esophagus determined by endoscopy Surgical History? History of cataract surgery History of cataract surgery History of hand surgery History of surgery on wrist Social History/Home Situation: Lives alone in an apartment with 17 steps to enter with a rail on one side.? Equipment Owned/DME: [facility] Subjective: Complains about moderate shortness of breath after a short walk. Continues to report pain in the L shoulder and arm with movement but of decreased intensity now than he did in the previous admission. Objective: General Observation: Mepilex Ag over surgical incision partially loosened, will let Nurse Raul aware of issue. Ecchymoses in L UE, L upper back and L trunk diminishing in size and color. Oxygen supplementation of 0.5L/min in place. Mental Status: Alert and oriented as to person and place. Some apathy observed requiring more encouragement to participate in PT. Pain: 4-5/10 in L shoulder Vital Signs: WNL as closely monitored by nursing staff ROM: Right Upper Extremity:? Shoulder Flexion WFL. Shoulder abduction WFL. Elbow flexion WFL. Wrist flexion WFL. Functional opening and closing of hand WFL. Left Upper Extremity:? Shoulder Flexion up to about 20 degrees. Shoulder abduction up to abut 20 degrees. Elbow flexion WFL. Wrist flexion WFL. Functional opening and closing of hand WFL. Right Lower Extremity: Hip flexion WFL. Hip abduction WFL. Knee flexion WFL. Ankle dorsiflexion WFL. Ankle plantarflexion WFL. Left Lower Extremity: Hip flexion WFL. Hip abduction WFL. Knee flexion WFL. Ankle dorsiflexion 10 degrees.? Ankle plantarflexion 20 degrees. Strength: Right Upper Extremity: Shoulder flexors 5/5. Shoulder abductors 5/5. Elbow flexors 5/5. Elbow extensors 5/5. Executive Assistant strong. Left Upper Extremity: Shoulder flexors 2-/5. Shoulder abductors 2-/5. Elbow flexors 3/5. Elbow extensors 3/5. Executive Assistant weak but functional. Right Lower Extremity: Hip flexors 4/5. Hip abductors 4/5. Knee flexors 4/5. Knee extensors 4/5. Ankle dorsiflexors 5/5. Ankle plantarflexors 5/5. Left Lower Extremity: Hip flexors 4-/5. Hip abductors 4-/5. Knee flexors 4-/5. Knee extensors 4-/5. Ankle dorsiflexors 3-/5. Ankle plantarflexors 3-/5. Bed Mobility/Transfers: Supine to sit independent Sit to supine independent Sit to stand independent Stand to sit independent Bed to chair stand by assist Chair to bed stand by assist Gait: 20 feet x 2 using no assistive device with stand by assist. Gait wide based. DF in L foot decreased. Mildly ataxic but no loss of balance. Step length asymmetrical. Balance: Sitting static: Good Sitting dynamic: Good Standing static: Good Standing dynamic: Fair Special Tests: Mobility Limitations Standardized Measure [facility]-PAC 6 clicks Basic Mobility Inpatient Short Form: Raw Score: 19? CMS Score: 42% deficit? ? ? Babinski reflex: positive on the L Foot drop: positive on the L Informed Consent/Education:? Patient was instructed in purpose of PT consult and plan of care. Agreeable to proceed with established PT POC to achieve personal goals. Assessment: Skilling needed to progress strength, range of motion, and function of the L UE according to orthopod's protocols. patietn will also beenfit from progressive balance training to reduce fall risk. Patient is a 66-year-old male patient who presented to the ED on 11/23/2021 due to uncontrolled diarrhea, urinary symptoms, LE swelling, fast heart rate and palpitations.? Patient is diagnosed with displaced complex proximal humeral fracture and long head of triceps tendon incarceration sustained from a fall on 11/13/2021 and is S/P L rTSA? and R open biceps tenodesis on postoperative day 8.? He also has diagnoses of acute on chronic diastolic heart failure, AF, and COPD exacerbation. Patient will benefit from an OT evaluation to assess self-care and dressing skills in anticipation of discharge home alone. Patient presents with clinical signs and symptoms consistent with current/admitting diagnoses that have resulted to mobility limitations, gait instability, generalized weakness, and overall ADL decline as demonstrated by the following impairment level findings: 1.? Decreased strength to L UE/and L dorsiflexors 2.? Impaired sitting/standing balance 3.? Impaired activity tolerance 4.? Limitation of joint range of motion in L UE and L dorsiflexors 5.? + Babinski Reflex on L 6.? Swelling in L UE Impairments are contributing to the following functional limitations: 1.? Decline in bed mobility skills 2.? Decline in transfer skills 3.? Difficulty with ambulation 4.? Increased completion time for mobility ADL performance 5.? Increased risk for falls 6.? Difficulty with managing steps alone safely Patient is assessed as a [id number] moderate complexity based on the following: History: [id number] male with past medical history as indicated above Examination: Demonstrable impairment in strength, balance, and mobility level with underlying impairments and functional limitations as exhibited above as well as deficit score of 69% utilizing the [facility] Mobility Inpatient Short Form Presentation: Evolving Decision Makin moderate complexity Goals: Goals X1 week 2. Bed-Chair independent with no AD 3. Chair-Bed independent with no AD 4. Independent gait on level surface with use of no AD for at least 500 feet without report of pain nor dyspnea 5. Independent stair negotiation while holding onto 1 rails for at least 17 steps without report of pain nor dyspnea 6. Good static and dynamic standing balance/tolerance 7. Achieve increase in AROM in the L shoulder of at least 50% in order to increase efficiency of ADL performance 8. Decrease swelling in L UE to facilitate healing of surgical site and allow optimal use of L UE 9. Achieve dynamic standing balance of good to reduce fall risk Plan of Care/Treatment Plan: 1-2x/day, 7 days/week x 1 week. Plan of care has been reviewed with the ADJUNCT POLITICAL SCIENCE INSTRUCTOR providing the service under Physical Therapy direction.? Perform the following interventions: 1. AAROM to AROM of L shoulder (No combined extension and IR) 2. Isometrics to L shoulder muscles (shoulder in neutral) 3. AROM to elbow, wrist, and hand 4. Dynamic standing balance activities 5. Manual lymphatic drainage to upper back anterior and posterior, L upper chest to L groin area 6. Ambulation and transfer progression as tolerated 7. Scapular exercises: elevation, retraction DISCHARGE RECOMMENDATIONS: [] ? Home with no services [] [] ? Home with services [] [] ? Home with outpatient PT [] [X] ? SNF for continued rehabilitation. Patient will benefit from snf facility placement for continued skilled physical therapy services in order to progress mobility level, strength, and balance in preparation for a safe discharge to home. [] ? [facility] [] [] ? SNF versus LTC based on ability to participate and progress [] TREATMENT CODE/TIME: 87576 x 25 minutes minutes beginning at 10:20 AM. Thank you for the opportunity to participate in the care of this patient. Lina Caballero PT, DPT, CLT [facility] [place], [place]
[2021-11-24] MEDS: Tiotropium/Olodaterol 10 PUFF INHALER 2 PUFF IH (10:58)
--- NOTE | 2021-11-24 13:15 | PTTR_ITS ---
Date of service: 11/25/21 Time of Service: 13:15 PT Notes Visit Reasons: Acute CHF,Atrial Fibrillation with RVR Physical Therapy Inpatient Treatment Note Date: 11/24/2021 Referring Doctor:? Jerson George MD PT Orders: PT CONSULT:? Limited ability Precautions: Fall. Standard.?Per Dr. Hastings as of 11/14/2021:? Reverse TSA protocol.? Should remove sling while in bed or resting.? Recommend sling when ambulatory or out of home.? Gentle passive range of motion to the shoulder.? Active range of motion elbow, wrist, and hand.? May use upper extremity gently for all essential ADLs including active range of motion within a limited arc with light weight bearing. Subjective: Much more agreeable to session this afternon. Objective: General Observation: Mepilex Ag over surgical incision partially loosened,? will let Nurse Raul aware of issue.? Ecchymoses in L UE, L upper back and L trunk diminishing in size and color. Oxygen supplementation of 0.5L/min in place. Mental Status: Alert and oriented as to person and place.? Some apathy observed requiring more encouragement to participate in PT. Pain: 4-5/10 in L shoulder Vital Signs: WNL as closely monitored by nursing staff Bed Mobility/Transfers: Supine to sit independent Sit to supine independent Sit to stand independent Stand to sit independent Bed to chair stand by assist Chair to bed stand by assist Gait: 200 feet using no assistive device, sling on L UE. Mild ataxia and mild path deviation but no loss of balance. Moderate shortness of breath on 1 L of O2 per minute. Vaishali decreased. Balance: Sitting static: Good Sitting dynamic: Good Standing static: Good Standing dynamic: Fair Assessment: More agreeable to session this afternoon. Tolerated longer distance ambulation this afternoon. Mild ataxia but no loss of balance. Pain level much more controlled. Oxygen supplementation needed, became moderately short of breath after ambulatin activity. Plan of Care/Treatment Plan: 1-2x/day, 7 days/week x 1 week. Plan of care has been reviewed with the FARM LABORER providing the service under Physical Therapy direction.? Perform the following interventions: 1.? AAROM to AROM of L shoulder (No combined extension and IR) 2.? Isometrics to L shoulder muscles (shoulder in neutral) 3.? AROM to elbow, wrist, and hand 4.? Dynamic standing balance activities 5.? Manual lymphatic drainage to upper back anterior and posterior,? L upper chest to L groin area 6.? Ambulation and transfer progression as tolerated 7.? Scapular exercises: elevation, retraction DISCHARGE RECOMMENDATIONS: [] ? Home with no services [] [] ? Home with services [] [] ? Home with outpatient PT [] [X] ? SNF for continued rehabilitation.? Patient will benefit from senior care facility placement for continued skilled physical therapy services in order to progress mobility level, strength, and balance in preparation for a safe discharge to home. [] ? Residential Care [] [] ? SNF versus LTC based on ability to participate and progress [] TREATMENT CODE/TIME: 34496 x 15 minutes minutes beginning at 13:15 AM.
--- NOTE | 2021-11-24 14:15 | DI.RAD_ITS ---
Exam(s) XR SHOULDER LT COMPLETE 2+V EXAM: XR SHOULDER LT COMPLETE 2+V INDICATION: When transport and STANDING possible. COMPARISON: CR,XR XR SHOULDER LT COMPLETE 2+V from 11/11/2021 CR XR SHOULDER LT COMPLETE 2+V from 11/14/2021 TECHNIQUE: 2D digital imaging was performed. Two views. FINDINGS: There has been no change in the alignment of the air versus shoulder prosthesis. There has been reso rption of mid degenerative the postsurgical air. Some bony fragments are seen related to the previou sly noted markedly comminuted humeral head fracture. DATA REPOSITORY: RADIATION DOSE DELIVERED:
--- NOTE | 2021-11-24 15:01 | PDOC.CMIN ---
- If Service Date Differs Date of service: 11/24/21 Time of Service: 15:01 Care Management Initial Assess REASON FOR HOSPITALIZATION:: afib with RVR PAST MEDICAL HISTORY/PAST SURGICAL HISTORY:: All Active Problems (Updated 11/24/21 @ 08:54 by Jerson Delarosa). CHF (congestive heart failure) (Chronic). No-show for appointment (Acute). Left leg weakness (Acute). MCL sprain of right knee (Acute). Alcohol abuse (Chronic). Chest discomfort (Chronic). Acute on chronic diastolic heart failure (Acute). Bilateral pleural effusion (Acute). Falls (Acute). Discharge planning issues (Acute). DVT prophylaxis (Acute). Pulmonary nodule (Acute). Acute respiratory failure with hypoxia (Acute). Acute exacerbation of chronic obstructive pulmonary disease (Acute). Pneumonia (Acute). Acute respiratory distress (Acute). Femur fracture, right (Acute). Fracture, rib (Acute). A-fib (Chronic). Laceration of digital nerve of left thumb (Acute). Gastritis and duodenitis (Acute). Medical History . Alcohol withdrawal. Arthritis. COPD (chronic obstructive pulmonary disease). Depression. Hepatitis C. Per H&P: s/p tx. . He had an abc CT earlier this year which showed a normal liver.. Hypertension. Neck fracture. Per pt. states he broke his nevk 5-6 years ago. Upper GI bleed. Varices of esophagus determined by endoscopy. Surgical History . History of cataract surgery. History of cataract surgery. History of hand surgery. 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 As treatment for proximal humerus fx (DOI: 11/11/2021). History of surgery on wrist PREVIOUS FUNCTIONAL STATUS/SOCIAL/FAMILY SUPPORTS:: Geovani lives alone in an apartment in [place], [place] He was disabled about 10 years ago when he broke his back. 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 He is independent with ADLs and uses a cane for ambulation. CURRENT FUNCTIONAL STATUS:: Geovani was sitting up in bed when met with him. He was polite and agreeable to conversation but not in good spirits. When asked how things have been going at home since his recent discharge he answered with an expletive. He stated that he had a plan but the plan blew up. He had 2 friends who were going to stay with him for a while to help him out but the woman's father suddenly so they never came. He stated that he still has difficulty with stairs and that he believes that trying to go up and down stairs is what triggered his afib.Geovani had home health services ordered when discharged earlier this month but they were never initiated. Barriers included Geovani not responding to phone calls and the fact that he lives in a secure building and would have to walk down stairs to let them in. ADVANCE DIRECTIVES:: none on file Has patient been provided with info about the portal/API?: Yes Did the patient sign up for the portal?: No CODE STATUS:: Full Code INSURANCE COVERAGE / FINANCIAL ISSUES:: Medicare. Medicaid CURRENT HOME/COMMUNITY SERVICES/EQUIPMENT:: uses a cane PRIMARY CARE PHYSICIAN:: Sherri Guzman POTENTIAL DISCHARGE NEEDS:: follow up with community providers and plan of care PATIENT/FAMILY EDUCATION NEEDS:: Review of discharge instructions, follow up plan, limitations, activity, discuss Ask Me Three TRANSPORTATION:: via RCT PLAN:: Geovani will likely return home when medically cleared by provider. Home health RN,PT, OT was ordered when he was discharged on 11/18/21 but never initiated. He would likely benefit from services if the barriers encountered last time can be overcome. He will follow up with community providers and plan of care and transport via RCT vs with a friend. CM will support Geovani and assess for ongoing discharge concerns. Readmission - Within the Past 30 Days Yes or No: Y - Date of First Admission Date of 1st Admission: 11/11/21 - Date of this Admission Date of Admission: 11/23/21 This admission was: Through ED - I. Interview patient and/or Family Difficulty reaching your doctor or getting an office appt?: No Have you had trouble purchasing/ or taking medication?: No Have you had trouble with getting meals at home?: No Did you feel ready for discharge when you left the last time: No ( ) Why did you not feel ready for discharge?: has concerns about safety on stairs Were services received that you thought were set up on disch: Yes - If the patient had a VNA ordered Did the patient have a VNA order?: Yes Did you call the VNA before you came?: No - Assessment for Readmission Summary of readmission circumstances, based upon interviews: Geovani was discharged home on 11/18 and readmitted on 11/23/21. When asked what happened he stated that he had a plan and then it fell through. He planned to have 2 of his friends come and stay with him to help out for a while but one of his friends' father suddenly and they were unable to help Geovani. He has difficulties with transportation and with navigating his stairs. He stated that he feels the stress of trying to do the stairs triggered his afib again.
[2021-11-24] MEDS: Lidocaine 5% Patch 1 PATCH TP (18:09)
[2021-11-24] MEDS: Furosemide 40 MG/4 ML VIAL 20 MG IVP (18:28)
--- NOTE | 2021-11-24 19:58 | W.PM.PROGNOT ---
Date of Service Date of service: 11/24/21 Time of Service: 16:45 Assessment and Plan Assessment and plan (1) Acute on chronic diastolic heart failure: Start date: 11/23/21 Status: Acute Assessment and plan: Increase IV lasix. (2) A-fib: Status: Chronic Assessment and plan: The patient was switched to metoprolol from his home propranolol. It appears that his rate is currently well controlled. Consider switching back to propranolol however, since it is actually medication noncompliance that we suspect is the cause of the rapid ventricular rates rather than failure of the agent. Qualifiers: Atrial fibrillation type: longstanding persistent Qualified Code(s): I48.11 - Longstanding persistent atrial fibrillation (3) Acute exacerbation of chronic obstructive pulmonary disease: Status: Ruled-out Assessment and plan: Today's exam is more c/w CHF exacerbation rather than COPD. Will focus on diuresis. Continue prn nebs. Would not start steroids at this time. (4) Closed fracture of left proximal humerus: Status: Resolved Assessment and plan: s/p repair of the fracture. PT consulted. (5) DVT prophylaxis: Status: Acute Assessment and plan: Trial SC heparin. Has a listed history of gastritis and duodenitis - low threshold to stop. (6) Discharge planning issues: Status: Acute Assessment and plan: Will clarify code status - order as entered states full code. Continues to require hospitalization. Subjective Subjective Interval history since last seen: Mr Nolan states that he is still quite short of breath. He denies dizziness, chest pain, palpitations. HE states his right shoulder is bothering him since he was trying to protect his left shoulder after recent surgery. He denies n/v. On telemetry, he is in Afib HR 70s- brief 120s. Exam Narrative Exam Narrative: General: Pleasant middle-aged male who is A&Ox3, laying nearly flat in bed, no dyspnea/tachypnea, but coughing HEENT: EOMI, MMM Heart: irregularly irregular rhythm, no m/r/g Lungs: crackles at B bases Abdomen: soft, nontender, nondistended Extremities: edema at B ankles Objective Last Vital Signs Temp 37.0 C 11/24/21 15:27 Pulse 65 11/24/21 15:57 Resp 18 11/24/21 15:27 BP 104/76 11/24/21 15:27 Pulse Ox 98 11/24/21 15:27 Laboratory Results - last 24 hr 11/23/21 11/23/21 11/24/21 16:23 20:43 06:35 WBC RBC Hgb Hct MCV MCH MCHC RDW Plt Count MPV Immature Gran % Neutrophils % Lymphocytes % Monocytes % Eosinophils % Basophils % Nucleated RBC % Absolute Neutrophils Absolute Lymphocytes Absolute Monocytes Absolute Eosinophils Absolute Basophils PT INR Sodium 136 Potassium 4.1 Chloride 100 Carbon Dioxide 27.0 Anion Gap 9.0 BUN 12 Creatinine 1.6 H Est GFR (CKD-EPI 2020) 47.23 Glucose 93 Calcium 9.2 Magnesium 1.9 Total Bilirubin 0.9 AST 76 H ALT 44 Alkaline Phosphatase 136 H Total Protein 7.0 Albumin 2.3 L TSH 1.09 COVID-19 Source Nasal/Nares SARS-CoV-2 (PCR) Negative 11/24/21 11/24/21 06:35 06:35 WBC 8.92 RBC 3.23 L Hgb 10.2 L Hct 31.7 L MCV 98 H MCH 31.6 MCHC 32.2 RDW 12.9 Plt Count 346 MPV 10.1 Immature Gran % 0.8 Neutrophils % 64.9 Lymphocytes % 20.6 Monocytes % 11.9 Eosinophils % 1.1 Basophils % 0.7 Nucleated RBC % 0.0 Absolute Neutrophils 5.79 Absolute Lymphocytes 1.84 Absolute Monocytes 1.06 H Absolute Eosinophils 0.10 Absolute Basophils 0.06 PT 11.7 H INR 1.2 H Sodium Potassium Chloride Carbon Dioxide Anion Gap BUN Creatinine Est GFR (CKD-EPI 2020) Glucose Calcium Magnesium Total Bilirubin AST ALT Alkaline Phosphatase Total Protein Albumin TSH COVID-19 Source SARS-CoV-2 (PCR)
[2021-11-24] MEDS: Heparin 5,000 UNITS/ML VIAL 5000 UNITS SC (22:45)
[2021-11-24] MEDS: Terazosin 2 MG CAP PO (22:46)
[2021-11-25] VITALS (13 sets, daily range): BP systolic 78–122; BP diastolic 54–89; PULSE 69–160; RESP 16–20; TEMP 35.6–37.8; O2SAT 91–100
[2021-11-25] MEDS: Baclofen 10 MG TAB PO ×2 (02:05→19:20)
[2021-11-25] MEDS: Albuterol/Ipratropium 3 ML UPD VIAL UPD (02:52)
[2021-11-25] MEDS: Metoprolol 12.5 MG TAB PO (06:09)
[2021-11-25] MEDS: oxyCODONE 5 MG TAB PO ×3 (06:09→21:07)
[2021-11-25] MEDS: Heparin 5,000 UNITS/ML VIAL 5000 UNITS SC ×3 (06:10→21:09)
[2021-11-25 07:30] LABS: Platelet Count 348 10^3/uL (130-400)
[2021-11-25 08:04] LABS: Abs Immature Grans 0.05 10^3/uL (0.0-0.06); Absolute Basophil Count 0.06 10^3/uL (0.0-0.2); Absolute Eosinophil Count 0.06 10^3/uL (0.0-0.7); Absolute Neutrophil Count 7.17 10^3/uL (1.2-6.7); Basophils % 0.6; Eosinophils % 0.6; HCT 31.6 % (40.0-50.0); HGB 10.4 g/dL (13.5-17.5); Immature Grans % 0.5; Lymphocytes % 15.4; MCH 31.9 pg (27.0-33.0); MCHC 32.9 % (32.0-36.0); MCV 97 fL (80-95); MPV 10.7 fL (8.0-11.0); Monocytes % 9.2; Neutrophils % 73.7; RBC 3.26 10^6/uL (4.36-5.78); RDW 12.9 % (11.8-14.1); RDW-SD 45.8 fL; WBC 9.74 10^3/uL (4.4-10.8)
[2021-11-25 08:25] LABS: Anion Gap 8.7 mmol/L (3-11); BUN 14 mg/dL (7-18); CO2 28.3 mmol/L (21.0-32.0); CREATININE 1.5 mg/dL (0.70-1.30); Calcium 8.9 mg/dL (8.5-10.1); Chloride 97 mmol/L (98-107); Estimated GFR 51.03 (mL/min/1.73m2); Glucose 84 mg/dL (74-106); Magnesium 1.6 mg/dL (1.8-2.4); Potassium 3.8 mmol/L (3.5-5.1); Sodium 134 mmol/L (136-145)
[2021-11-25] MEDS: Tiotropium/Olodaterol 10 PUFF INHALER 2 PUFF IH (08:32)
--- NOTE | 2021-11-25 08:54 | DI.RAD_ITS ---
Exam(s) XR PORTABLE CHEST AP EXAM: XR PORTABLE CHEST AP CLINICAL HISTORY: borderline fever and hypoxia, ?pneumonia TECHNIQUE: 2D digital imaging was performed. COMPARISON: No exams were available for comparison FINDINGS: LUNGS: Mild fibrotic changes. Granuloma right lower lobe. No acute infiltrate. No pleural abnormal ity seen. HEART: Normal. AORTA: Normal. BONES: Degenerative changes. Left shoulder prosthesis. Soft tissues: Unremarkable. IMPRESSION: No acute findings. DATA REPOSITORY: RADIATION DOSE DELIVERED:
[2021-11-25 08:57] LABS: Procalcitonin < 0.1 ng/mL
[2021-11-25] MEDS: Normal Saline Flush 10 ML SYR IVP ×2 (09:14→09:20)
[2021-11-25] MEDS: Pantoprazole 40 MG TABCR PO (09:15)
[2021-11-25] MEDS: Magnesium Oxide 400 MG TAB PO (09:15)
[2021-11-25] MEDS: Aspirin E.C. 81 MG TABEC PO (09:15)
[2021-11-25] MEDS: Topiramate 50 MG TAB PO ×2 (09:15→19:20)
[2021-11-25] MEDS: Gabapentin 800 MG TAB PO ×3 (09:15→19:20)
[2021-11-25] MEDS: Citalopram 20 MG TAB PO (09:15)
[2021-11-25] MEDS: Acetaminophen 325 MG TAB PO ×2 (09:16→23:44)
[2021-11-25] MEDS: Potassium Chloride 20 MEQ TABCR PO ×2 (09:16→19:20)
[2021-11-25] MEDS: buPROPion-CR 150 MG TABCR PO ×2 (09:16→19:20)
[2021-11-25] MEDS: Furosemide 100 MG/10 ML VIAL 60 MG IVP (09:20)
[2021-11-25] MEDS: MAGNESIUM SULFATE 2 GM/50 ML BAG IVPB (09:21)
--- NOTE | 2021-11-25 10:02 | CMPROGNOTE_ITS ---
- If Service Date Differs Date of service: 11/25/21 Time of Service: 10:02 Care Management Progress Note S/O:Geovani was sitting up in a chair this morning when CM met with him. He indicated that he is still not feeling well. CM again asked Geovani if he would consider going to a SNF. It is likely that Geovani will be medically clkeared for discharge soon and the barriers to receiving services at home remain. He still has difficulties with his stairs and has no one to unlock the door to admit home health staff. He asked to be give time to think about it. CM returned that afternoon and asked if Geovani is he had been able to make a decision. Both Lin and Sherri from PT encouraged him throughout the day to consider rehab as well. After reassuring him that Medicare would pay 100% of the cost for the first 20 days, he agreed. He verbalized that he knows he cannot manage on his own this time and stated that it makes sense. Referrals have been sent to [facility], [facility] and [facility]. A: Geovani is a 66 year old man admitted on 11/23/21 with CHF and afib P:Geovani has agreed to go to a SNF for short term rehab prior to returning home. Referrals have been sent to [facility], [facility] and [facility]. CM will support Geovani and assess for ongoing discharge concerns.
[2021-11-25 10:23] LABS: Source Nasal/Nares
--- NOTE | 2021-11-25 11:00 | W.PM.PROGNOT ---
Date of Service Date of service: 11/25/21 Time of Service: 11:01 Assessment and Plan Assessment and plan (1) Closed fracture of left proximal humerus: Status: Resolved (2) History of reverse total replacement of left shoulder joint: Assessment and plan: Geovani continues to improve 2 weeks status post a reverse total shoulder replacement as treatment for a proximal humerus fracture. A new Mepilex dressing was placed over the incision, and he was instructed to keep that in place for the next 2 weeks. If there are any concerns with the incision including erythema, streaking, opening or drainage the office should be notified especially if this coincides with increased pain. He should continue protocol that was laid out for him at his discharge for the reverse total shoulder replacement with physical therapy. He will follow-up in the office in approximately 6 weeks for clinical reevaluation. Subjective Subjective Interval history since last seen: Geovani is 2 weeks status post a reverse total shoulder of his left shoulder as treatment for a proximal humerus fracture (DOI: 11/11/2021; DOS: 11/14/2021), and he is doing well. He does continue to have some soreness throughout his shoulder especially when trying to actively move his shoulder away from his body. If he stays within the confines of the sling, he is fairly comfortable. X-rays taken yesterday of the left shoulder did not reveal any bony concerns. Prosthesis is in good position without loosening. He has no specific complaint with the shoulder other than soreness. Exam Extrem Other: Brief exam of the left shoulder today shows that the incision is well-healed with no erythema around the incision. No open areas or drainage. Bruising around the shoulder is resolving. He is able to tolerate passive motion within the confines of the sling without any pain. Active motion does cause him soreness/discomfort, and strength is not assessed due to recent surgery. Objective Last Vital Signs Temp 100.0 F H 11/25/21 09:16 Pulse 114 H 11/25/21 07:37 Resp 18 11/25/21 07:37 BP 94/62 L 11/25/21 07:37 Pulse Ox 92 11/25/21 07:37 Laboratory Results - last 24 hr 11/25/21 11/25/21 11/25/21 06:55 06:55 06:55 WBC 9.74 Cancelled RBC 3.26 L Cancelled Hgb 10.4 L Cancelled Hct 31.6 L Cancelled MCV 97 H Cancelled MCH 31.9 Cancelled MCHC 32.9 Cancelled RDW 12.9 Cancelled Plt Count 348 Cancelled MPV 10.7 Cancelled Immature Gran % 0.5 Cancelled Neutrophils % 73.7 Cancelled Band Neutrophils % Cancelled Lymphocytes % 15.4 Cancelled Atypical Lymphs % Cancelled Monocytes % 9.2 Cancelled Eosinophils % 0.6 Cancelled Basophils % 0.6 Cancelled Metamyelocytes % Cancelled Myelocytes % Cancelled Promyelocytes % Cancelled Other Cells % Cancelled Nucleated RBC % 0.0 Cancelled Absolute Neutrophils 7.17 H Cancelled Absolute Lymphocytes 1.50 Cancelled Absolute Monocytes 0.90 H Cancelled Absolute Eosinophils 0.06 Cancelled Absolute Basophils 0.06 Cancelled RBC Morphology Cancelled Polychromasia Cancelled Hypochromasia Cancelled Poikilocytosis Cancelled Basophilic Stippling Cancelled Anisocytosis Cancelled Microcytosis Cancelled Macrocytosis Cancelled Spherocytes Cancelled Tear Drop Cells Cancelled Ovalocytes Cancelled Stomatocytes Cancelled Torres-[place] Bodies Cancelled Akbar Cells/Echinocytes Cancelled Acanthocytes (Spur) Cancelled Schistocytes Cancelled Sodium Potassium Chloride Carbon Dioxide Anion Gap BUN Creatinine Est GFR (CKD-EPI 2020) Glucose Calcium Magnesium Procalcitonin COVID-19 Source Add-On Test Request Cancelled 11/25/21 11/25/21 11/25/21 08:05 08:05 09:40 WBC RBC Hgb Hct MCV MCH MCHC RDW Plt Count MPV Immature Gran % Neutrophils % Band Neutrophils % Lymphocytes % Atypical Lymphs % Monocytes % Eosinophils % Basophils % Metamyelocytes % Myelocytes % Promyelocytes % Other Cells % Nucleated RBC % Absolute Neutrophils Absolute Lymphocytes Absolute Monocytes Absolute Eosinophils Absolute Basophils RBC Morphology Polychromasia Hypochromasia Poikilocytosis Basophilic Stippling Anisocytosis Microcytosis Macrocytosis Spherocytes Tear Drop Cells Ovalocytes Stomatocytes Torres-[place] Bodies [place] Cells/Echinocytes Acanthocytes (Spur) Schistocytes Sodium 134 L Potassium 3.8 Chloride 97 L Carbon Dioxide 28.3 Anion Gap 8.7 BUN 14 Creatinine 1.5 H Est GFR (CKD-EPI 2020) 51.03 Glucose 84 Calcium 8.9 Magnesium 1.6 L Procalcitonin < 0.1 COVID-19 Source Nasal/Nares Add-On Test Request
--- NOTE | 2021-11-25 11:36 | PTTR_ITS ---
Date of service: 11/25/21 Time of Service: 10:48 PT Notes Visit Reasons: Acute CHF,Atrial Fibrillation with RVR Physical Therapy Inpatient Treatment Note Date: 11/25/2021 Referring Doctor:? Jerson George MD PT Orders: PT CONSULT:? Limited ability Precautions: Fall. Standard.?Per Dr. Hastings as of 11/14/2021:? Reverse TSA protocol.? Should remove sling while in bed or resting.? Recommend sling when ambulatory or out of home.? Gentle passive range of motion to the shoulder.? Active range of motion elbow, wrist, and hand.? May use upper extremity gently for all essential ADLs including active range of motion within a limited arc with light weight bearing. Subjective: Amenable to session with education from PT. Chavo about moving L arm. EDMAR Castillo came to visit patient (patient missed OP ortho follow up yesterday as he was readmitted to this hospital) to reassure patient that everything is in place in the re-xray that was done. Instrcuted PT about taking movement easy within safe painless arc of movement. Per Nurse Jane, patient's BP is soft in the 80s/70s mmHg. Objective: General Observation: Mepilex Ag over surgical incision just replaced by EDMAR Castillo. Ecchymoses in L UE, L upper back and L trunk continuing to diminishing in size and color. Oxygen supplementation of 0.5L/min in place. Swelling considerably subsided. Mental Status: Alert and oriented as to person and place.? Pain: 5/10 in L shoulder Vital Signs: BP 80s/70s mmHg in sitting Transfers: Deferred due to low BP Gait: Deferred due to low BP Balance: NT THERA EX: Needed minimal cueing to stay on task for the following while seated on chair -gentle scapular squeezes with B arms on B sides, seated at EOB x 10 with no report of increased pain -gentle shoulder shrugs with B arms on B sides, seated at EOB x 10 with no report of increased pain -L shoulder flexion AROM/hand slide on lap before the point of pain x 5 -AAROM to L elbow flexion to about 30 degrees before the point of pain x 5 -Slow tummy rubs/hand up and down tummy x10, -AROM to L wrist extension to about 10 degrees before the point of pain 10 -AROM to L wrist flexion to about 10 degrees before the point of pain x 10 -Hand squeezes x 20 using yellow foam Assessment: Deferred walking activity today due to low BP. Continues to need pre-medication for pain. Plan of Care/Treatment Plan: 1-2x/day, 7 days/week x 1 week. Plan of care has been reviewed with the MIXING OPERATOR providing the service under Physical Therapy direction.? Perform the following interventions: 1.? AAROM to AROM of L shoulder (No combined extension, adduction, and IR) 2.? Isometrics to L shoulder muscles (shoulder in neutral) 3.? AROM to elbow, wrist, and hand 4.? Dynamic standing balance activities 5.? Manual lymphatic drainage to upper back anterior and posterior,? L upper chest to L groin area if agreeable 6.? Ambulation and transfer progression as tolerated 7.? Scapular exercises: elevation, retraction DISCHARGE RECOMMENDATIONS: [] ? Home with no services [] [] ? Home with services [] [] ? Home with outpatient PT [] [X] ? SNF for continued rehabilitation.? Patient will benefit from [facility] for continued skilled physical therapy services in order to progress mobility level, strength, and balance in preparation for a safe discharge to home. [] ? Residential Care [] [] ? SNF versus LTC based on ability to participate and progress [] TREATMENT CODE/TIME: 61169 x 34 minutes minutes beginning at 10:28 AM and 11:36 AM.
[2021-11-25 12:04] LABS: COVID-19 PCR Negative (Negative)
[2021-11-25 14:59] LABS: Bilirubin Negative (Negative); Blood Negative (Negative); Clarity Clear (Clear); Glucose Negative (Negative); Ketones Negative (Negative); Leukocyte Esterase Negative (Negative); Nitrite Negative (Negative); Urobilinogen 0.2 EU/dL (Up TO 0.2)
--- NOTE | 2021-11-25 17:09 | PGE_ITS ---
Date of Service Date of service: 11/25/21 Time of Service: 14:00 Assessment and Plan Assessment and plan (1) Acute on chronic diastolic heart failure: Status: Acute Assessment and plan: Stable - continue current medication regimen Lungs are distant, but clear. SPO2 100 RA HR 70's He continues to have low BP, asymptomatic. (2) A-fib: Status: Chronic Assessment and plan: The patient was switched to metoprolol from his home propranolol. It appears that his rate is currently well controlled. Consider switching back to propranolol however, since it is actually medication noncompliance that we suspect is the cause of the rapid ventricular rates rather than failure of the agent. Qualifiers: Atrial fibrillation type: longstanding persistent Qualified Code(s): I48.11 - Longstanding persistent atrial fibrillation (3) Acute exacerbation of chronic obstructive pulmonary disease: Status: Ruled-out Assessment and plan: Today's exam is more c/w CHF exacerbation rather than COPD. Will focus on diuresis. Continue prn nebs. Would not start steroids at this time. (4) Closed fracture of left proximal humerus: Status: Resolved Assessment and plan: s/p repair of the fracture. Seen by jared lord for rehab PT consulted. (5) DVT prophylaxis: Status: Acute Assessment and plan: Trial SC heparin. Has a listed history of gastritis and duodenitis - low threshold to stop. No concerns today - denies bloody stools (6) Discharge planning issues: Status: Acute Assessment and plan: Full code - wishing to go to the [facility] for rehab. Continues to require hospitalization. Discussed with Dr Pina Subjective Subjective Patient reports: no new complaints Interval history since last seen: Derrick states he feels that it is going to be tough at home with stairs and is asking to go to the [facility] on Sunday - ortho did clear his shoulder, however it is still quite weak and painful - I did let [facility] know his wishes. I think that is reasonable. Exam Narrative Exam Narrative: General: Patient appears older than stated age, alert and oriented, pleasant HEENT: Normocephalic, eyes with pupils equal and reactive light symmetrically, extraocular movement tact and sclera anicteric. Oropharynx with dry mucosa. Neck: Supple without JVD. Back: Stooped posture without CVA tenderness. Lungs: Bronchovesicular breath sounds, no wheezing, no rhonchi Heart: Irregularly irregular rhythm with normal rate, no appreciable murmur or gallop with distant heart sounds. Abdomen: Obese contour, soft and nontender to palpation with no palpable hepatosplenomegaly. Genitalia/rectal: Exam deferred. Extremities: 1+ pitting edema both lower extremities which is soft edema, no cyanosis or clubbing. Fair capillary refill. Joints without swelling but decreased range of motion. Especially left shoulder status post repair of fractured humerus with clean bandage overlying surgical scar. Skin: Warm, moist and normal color. Rough texture with actinic changes over sun exposed areas. Neuro: Cranial nerves II through XII gross intact, no focalizing motor deficits or tremor. Psych: Flattened affect with normal mood. No abnormal thought processes manifested the patient is a poor historian and vague in conversation. Remote memory grossly intact and recent memory less intact. His story is continuously changing. Objective Last Vital Signs Temp 36.0 C L 11/25/21 15:32 Pulse 69 11/25/21 15:32 Resp 19 11/25/21 15:32 BP 93/56 L 11/25/21 15:32 Pulse Ox 100 11/25/21 15:32 Laboratory Results - last 24 hr 11/25/21 11/25/21 11/25/21 06:55 06:55 06:55 WBC 9.74 Cancelled RBC 3.26 L Cancelled Hgb 10.4 L Cancelled Hct 31.6 L Cancelled MCV 97 H Cancelled MCH 31.9 Cancelled MCHC 32.9 Cancelled RDW 12.9 Cancelled Plt Count 348 Cancelled MPV 10.7 Cancelled Immature Gran % 0.5 Cancelled Neutrophils % 73.7 Cancelled Band Neutrophils % Cancelled Lymphocytes % 15.4 Cancelled Atypical Lymphs % Cancelled Monocytes % 9.2 Cancelled Eosinophils % 0.6 Cancelled Basophils % 0.6 Cancelled Metamyelocytes % Cancelled Myelocytes % Cancelled Promyelocytes % Cancelled Other Cells % Cancelled Nucleated RBC % 0.0 Cancelled Absolute Neutrophils 7.17 H Cancelled Absolute Lymphocytes 1.50 Cancelled Absolute Monocytes 0.90 H Cancelled Absolute Eosinophils 0.06 Cancelled Absolute Basophils 0.06 Cancelled RBC Morphology Cancelled Polychromasia Cancelled Hypochromasia Cancelled Poikilocytosis Cancelled Basophilic Stippling Cancelled Anisocytosis Cancelled Microcytosis Cancelled Macrocytosis Cancelled Spherocytes Cancelled Tear Drop Cells Cancelled Ovalocytes Cancelled Stomatocytes Cancelled [place] Bodies Cancelled Akbar Cells/Echinocytes Cancelled Acanthocytes (Spur) Cancelled Schistocytes Cancelled Sodium Potassium Chloride Carbon Dioxide Anion Gap BUN Creatinine Est GFR (CKD-EPI 2020) Glucose Calcium Magnesium Procalcitonin Urine Color Urine Clarity Urine pH Ur Specific [place] Urine Protein Urine Ketones Urine Blood Urine Nitrite Urine Bilirubin Urine Urobilinogen Ur Leukocyte Esterase Urine Glucose COVID-19 Source SARS-CoV-2 (PCR) Add-On Test Request Cancelled 11/25/21 11/25/21 11/25/21 08:05 08:05 09:40 WBC RBC Hgb Hct MCV MCH MCHC RDW Plt Count MPV Immature Gran % Neutrophils % Band Neutrophils % Lymphocytes % Atypical Lymphs % Monocytes % Eosinophils % Basophils % Metamyelocytes % Myelocytes % Promyelocytes % Other Cells % Nucleated RBC % Absolute Neutrophils Absolute Lymphocytes Absolute Monocytes Absolute Eosinophils Absolute Basophils RBC Morphology Polychromasia Hypochromasia Poikilocytosis Basophilic Stippling Anisocytosis Microcytosis Macrocytosis Spherocytes Tear Drop Cells Ovalocytes Stomatocytes [place] Bodies [place] Cells/Echinocytes Acanthocytes (Spur) Schistocytes Sodium 134 L Potassium 3.8 Chloride 97 L Carbon Dioxide 28.3 Anion Gap 8.7 BUN 14 Creatinine 1.5 H Est GFR (CKD-EPI 2020) 51.03 Glucose 84 Calcium 8.9 Magnesium 1.6 L Procalcitonin < 0.1 Urine Color Urine Clarity Urine pH Ur Specific [place] Urine Protein Urine Ketones Urine Blood Urine Nitrite Urine Bilirubin Urine Urobilinogen Ur Leukocyte Esterase Urine Glucose COVID-19 Source Nasal/Nares SARS-CoV-2 (PCR) Negative Add-On Test Request 11/25/21 14:50 WBC RBC Hgb Hct MCV MCH MCHC RDW Plt Count MPV Immature Gran % Neutrophils % Band Neutrophils % Lymphocytes % Atypical Lymphs % Monocytes % Eosinophils % Basophils % Metamyelocytes % Myelocytes % Promyelocytes % Other Cells % Nucleated RBC % Absolute Neutrophils Absolute Lymphocytes Absolute Monocytes Absolute Eosinophils Absolute Basophils RBC Morphology Polychromasia Hypochromasia Poikilocytosis Basophilic Stippling Anisocytosis Microcytosis Macrocytosis Spherocytes Tear Drop Cells Ovalocytes Stomatocytes [place] Bodies [place] Cells/Echinocytes Acanthocytes (Spur) Schistocytes Sodium Potassium Chloride Carbon Dioxide Anion Gap BUN Creatinine Est GFR (CKD-EPI 2020) Glucose Calcium Magnesium Procalcitonin Urine Color Yellow Urine Clarity Clear Urine pH 6.0 Ur Specific [place] 1.010 Urine Protein Negative Urine Ketones Negative Urine Blood Negative Urine Nitrite Negative Urine Bilirubin Negative Urine Urobilinogen 0.2 Ur Leukocyte Esterase Negative Urine Glucose Negative COVID-19 Source SARS-CoV-2 (PCR) Add-On Test Request
[2021-11-25] MEDS: Lidocaine 5% Patch 1 PATCH TP (17:44)
[2021-11-25] MEDS: Terazosin 2 MG CAP PO (21:08)
[2021-11-26] VITALS (11 sets, daily range): BP systolic 99–142; BP diastolic 66–86; PULSE 65–106; RESP 18–20; TEMP 36.1–37.4; O2SAT 92–98
--- NOTE | 2021-11-26 | DI.RAD_ITS ---
Exam(s) XR SHOULDER RT COMPLETE 2+V EXAM: XR SHOULDER RT COMPLETE 2+V CLINICAL HISTORY: right shoulder pain TECHNIQUE: COMPARISON: CR XR SHOULDER LT COMPLETE 2+V from 11/14/2021 CR XR PORTABLE CHEST AP from 11/23/2021 CR XR SHOULDER LT COMPLETE 2+V from 11/24/2021 FINDINGS: Five views were obtained. There is a fracture of the distal clavicle with moderate displacement. Th ere may be mild callus formation at the fracture site. No additional fracture seen. IMPRESSION: RADIATION DOSE DELIVERED: Total DLP
[2021-11-26] MEDS: Diclofenac 1% Gel 100 GM TUBE TP ×2 (00:34→07:41)
[2021-11-26] MEDS: oxyCODONE 5 MG TAB PO ×4 (02:52→21:21)
[2021-11-26] MEDS: Baclofen 10 MG TAB PO ×2 (06:12→19:44)
[2021-11-26] MEDS: Metoprolol 12.5 MG TAB PO ×3 (06:12→21:20)
[2021-11-26] MEDS: Heparin 5,000 UNITS/ML VIAL 5000 UNITS SC ×3 (06:13→21:21)
[2021-11-26 06:42] LABS: Abs Immature Grans 0.04 10^3/uL (0.0-0.06); Absolute Basophil Count 0.05 10^3/uL (0.0-0.2); Absolute Eosinophil Count 0.16 10^3/uL (0.0-0.7); Absolute Lymphocyte Count 1.72 10^3/uL (1.2-3.4); Absolute Monocyte Count 0.86 10^3/uL (0.1-0.8); Basophils % 0.6; Eosinophils % 2.1; HCT 30.4 % (40.0-50.0); Immature Grans % 0.5; Lymphocytes % 22.3; MCH 31.4 pg (27.0-33.0); MCHC 32.9 % (32.0-36.0); MCV 96 fL (80-95); MPV 10.8 fL (8.0-11.0); Monocytes % 11.1; Neutrophils % 63.4; Platelet Count 341 10^3/uL (130-400); RBC 3.18 10^6/uL (4.36-5.78); RDW 12.6 % (11.8-14.1); RDW-SD 44.1 fL; WBC 7.73 10^3/uL (4.4-10.8)
[2021-11-26 06:56] LABS: BUN 17 mg/dL (7-18); CREATININE 1.5 mg/dL (0.70-1.30); Calcium 8.8 mg/dL (8.5-10.1); Chloride 99 mmol/L (98-107); Estimated GFR 51.03 (mL/min/1.73m2); Glucose 104 mg/dL (74-106); Magnesium 2.1 mg/dL (1.8-2.4); Potassium 3.7 mmol/L (3.5-5.1); Sodium 133 mmol/L (136-145)
[2021-11-26] MEDS: Topiramate 50 MG TAB PO ×2 (07:41→19:43)
[2021-11-26] MEDS: Potassium Chloride 20 MEQ TABCR PO ×2 (07:42→19:44)
[2021-11-26] MEDS: buPROPion-CR 150 MG TABCR PO ×2 (07:42→19:44)
[2021-11-26] MEDS: Magnesium Oxide 400 MG TAB PO (07:42)
[2021-11-26] MEDS: Pantoprazole 40 MG TABCR PO (07:42)
[2021-11-26] MEDS: Aspirin E.C. 81 MG TABEC PO (07:42)
[2021-11-26] MEDS: Gabapentin 800 MG TAB PO ×3 (07:42→19:43)
[2021-11-26] MEDS: Citalopram 20 MG TAB PO (07:42)
[2021-11-26] MEDS: Tiotropium/Olodaterol 10 PUFF INHALER 2 PUFF IH (08:17)
--- NOTE | 2021-11-26 10:09 | PTTR_ITS ---
PT Notes Visit Reasons: Acute CHF,Atrial Fibrillation with RVR SUBJECTIVE: Pt awake sitting in recliner when approached for therapy. pt rep orted pain on bilateral shoulder and neck upper and lower back, pt requesting for pain meds and is waiting for nurse to administer medication when ASSISTANT BUYER went in pt room. OBJECTIVE: ? PAIN: 12/12 for L shoulder, 11/12 for R shoulder, 11/12 for cervicothoracic pain. ? BED MOBILITY/TRANSFERS? Sit-stand: CGA? Stand-sit: CGA ? GAIT? Assistive Device: no AD ? Weight bearing: Full Assist: Supervision ? Distance: within perimeter of pt room? Deviation: unremarkable THERA EX: Needed minimal cueing to stay on task for the following while seated on chair -gentle scapular squeezes with B arms on B sides, seated at EOB x 10 with no report of increased pain -gentle shoulder shrugs with B arms on B sides, seated at EOB x 10 with no report of increased pain -L shoulder flexion AROM/hand slide on lap before the point of pain x 5 -AAROM to L elbow flexion to about 30 degrees before the point of pain x 5 -Slow tummy rubs/hand up and down tummy x10, -AROM to L wrist extension to about 10 degrees before the point of pain 10 -AROM to L wrist flexion to about 10 degrees before the point of pain x 10 -Hand squeezes x 20 using yellow foam -Isometrics to L shoulder muscles (shoulder in neutral) 10secs hold 3x each (flexion,extension, abduction,adduction, internal,external rotation). -Dynamic standing balance activities (sit to stand 2x, static standing with neutral step width 30secs, room ambulation without AD supervision) ASSESSMENT:? Pt showing increased muscle guarding initially for L and R shoulder movement, pt able to relax a little bit after R shoulder manual therapy and was able to perform therapeutic procedure on both shoulders with less apprehension. PLAN: Continue with transfer training and global strengthening, as tolerated and directed in PT's POC. TREATMENT CODE/TIME: Session 1: 45 minutes; 76620 x3 (09:50) ?
--- NOTE | 2021-11-26 17:41 | W.PM.PROGNOT ---
Date of Service Date of service: 11/26/21 Time of Service: 17:41 Assessment and Plan Assessment and plan (1) Acute on chronic diastolic heart failure: Status: Acute Assessment and plan: Continue current dose of IV lasix (2) Acute exacerbation of chronic obstructive pulmonary disease: Status: Ruled-out Assessment and plan: Today the patient reports change in sputum color, productive cough. Add empiric doxycycline/ceftriaxone, prednisone, schedule duonebs. Add mucinex. Obtain sputum culture. Add acapella. (3) A-fib: Status: Chronic Assessment and plan: The patient was switched to metoprolol from his home propranolol. It appears that his rate is currently well controlled. Continue current dose of metoprolol (12.5 mg PO q8hrs). Qualifiers: Atrial fibrillation type: longstanding persistent Qualified Code(s): I48.11 - Longstanding persistent atrial fibrillation (4) Closed fracture of left proximal humerus: Status: Resolved Assessment and plan: s/p repair of the fracture. PT consulted. (5) Right shoulder pain: Status: Acute Assessment and plan: Obtain XR. Continue lidocaine patches. PT. (6) DVT prophylaxis: Status: Acute Assessment and plan: Trial SC heparin. Has a listed history of gastritis and duodenitis - low threshold to stop. (7) Discharge planning issues: Status: Acute Assessment and plan: Full code, per my conversation with the patient. Anticipate SNF placement. Continues to require hospitalization. Subjective Subjective Interval history since last seen: C/o R shoulder pain. Cannot tell me exactly if he had injured it but thinks it hurts as a result of trying to protect his left shoulder where he had surgery. States cough is productive of thick green sputum - not normal for him. Exam Narrative Exam Narrative: General: Pleasant middle-aged male who is A&Ox3, sitting up at the edge of the bed eating dinner HEENT: EOMI, MMM Heart: irregularly irregular rhythm, no m/r/g Lungs: crackles and wheezes bilaterally; sounds worse. Abdomen: soft, nontender, nondistended Extremities: trace edema at B ankles Objective Last Vital Signs Temp 36.9 C 11/26/21 14:57 Pulse 74 11/26/21 14:57 Resp 19 11/26/21 14:57 BP 106/73 11/26/21 14:57 Pulse Ox 94 11/26/21 14:57 Laboratory Results - last 24 hr 11/26/21 11/26/21 05:55 05:55 WBC 7.73 RBC 3.18 L Hgb 10.0 L Hct 30.4 L MCV 96 H MCH 31.4 MCHC 32.9 RDW 12.6 Plt Count 341 MPV 10.8 Immature Gran % 0.5 Neutrophils % 63.4 Lymphocytes % 22.3 Monocytes % 11.1 Eosinophils % 2.1 Basophils % 0.6 Nucleated RBC % 0.0 Absolute Neutrophils 4.90 Absolute Lymphocytes 1.72 Absolute Monocytes 0.86 H Absolute Eosinophils 0.16 Absolute Basophils 0.05 Sodium 133 L Potassium 3.7 Chloride 99 Carbon Dioxide 26.0 Anion Gap 8.0 BUN 17 Creatinine 1.5 H Est GFR (CKD-EPI 2020) 51.03 Glucose 104 Calcium 8.8 Magnesium 2.1
[2021-11-26] MEDS: Lidocaine 5% Patch 1 PATCH TP (18:12)
[2021-11-26] MEDS: predniSONE 20 MG TAB 40 MG PO (18:12)
[2021-11-26] MEDS: Albuterol/Ipratropium 3 ML UPD VIAL UPD (18:12)
--- NOTE | 2021-11-26 18:16 | DI.VRAD_ITS ---
PROCEDURE INFORMATION: Exam: XR Right Shoulder Exam date and time: 11/26/2021 6:00 PM Age: 66 years old Clinical indication: Patient HX: Right shoulder pain TECHNIQUE: Imaging protocol: Radiologic exam of the Right shoulder. Views: 2 or more views. COMPARISON: CR RIGHT SHOULDER COMPLETE 02/21/2016 2:35 PM FINDINGS: Bones/joints: Interval development of a distal right clavicular fracture with elevation of the distal aspect of the clavicle. No dislocation. Degenerative changes at the acromioclavicular and glenohumeral joints Soft tissues: Swelling in the supraclavicular fossa IMPRESSION: Distal right clavicular fracture new since the prior study Dictated and Authenticated by: Pablo Forrest MD. Ordering:AYANNA Lombardo MD
--- NOTE | 2021-11-26 18:45 | NUR.NOTE ---
Nursing Note:pt is refusing new IV access, education given about the need for IV lasix and antibiotics, pt still refusing IV at this time. CC aware.
[2021-11-26] MEDS: guaiFENesin 600 MG TABCR PO (19:43)
[2021-11-26] MEDS: Cefpodoxime 200 MG TAB PO (19:44)
[2021-11-26] MEDS: Azithromycin 250 MG TAB 500 MG PO (19:45)
[2021-11-26] MEDS: Terazosin 2 MG CAP PO (21:21)
[2021-11-26] MEDS: Zolpidem 10 MG TAB PO (23:09)
[2021-11-26] MEDS: Acetaminophen 325 MG TAB PO (23:09)
[2021-11-27] VITALS (11 sets, daily range): BP systolic 101–124; BP diastolic 69–86; PULSE 77–107; RESP 18–19; TEMP 35.5–36.7; O2SAT 95–98
[2021-11-27] MEDS: oxyCODONE 5 MG TAB PO ×4 (03:05→21:27)
[2021-11-27] MEDS: Metoprolol 12.5 MG TAB PO ×3 (06:10→21:26)
[2021-11-27] MEDS: Heparin 5,000 UNITS/ML VIAL 5000 UNITS SC ×3 (06:11→21:27)
[2021-11-27] MEDS: Baclofen 10 MG TAB PO ×2 (06:44→18:37)
[2021-11-27] MEDS: Pantoprazole 40 MG TABCR PO (06:44)
[2021-11-27 08:08] LABS: Anion Gap 7.6 mmol/L (3-11); BUN 17 mg/dL (7-18); CO2 25.4 mmol/L (21.0-32.0); CREATININE 1.7 mg/dL (0.70-1.30); Calcium 8.9 mg/dL (8.5-10.1); Chloride 99 mmol/L (98-107); Estimated GFR 43.91 (mL/min/1.73m2); Glucose 175 mg/dL (74-106); Magnesium 1.8 mg/dL (1.8-2.4); Potassium 4.4 mmol/L (3.5-5.1); Sodium 132 mmol/L (136-145)
[2021-11-27] MEDS: Potassium Chloride 20 MEQ TABCR PO ×2 (08:53→19:58)
[2021-11-27] MEDS: Topiramate 50 MG TAB PO ×2 (08:53→19:58)
[2021-11-27] MEDS: Azithromycin 250 MG TAB 500 MG PO (08:54)
[2021-11-27] MEDS: Cefpodoxime 200 MG TAB PO ×2 (08:54→19:58)
[2021-11-27] MEDS: Citalopram 20 MG TAB PO (08:55)
[2021-11-27] MEDS: Aspirin E.C. 81 MG TABEC PO (08:55)
[2021-11-27] MEDS: guaiFENesin 600 MG TABCR PO ×2 (08:56→19:58)
[2021-11-27] MEDS: buPROPion-CR 150 MG TABCR PO ×2 (08:56→19:57)
[2021-11-27] MEDS: Magnesium Oxide 400 MG TAB PO (08:57)
[2021-11-27] MEDS: Gabapentin 800 MG TAB PO ×3 (08:57→19:59)
[2021-11-27] MEDS: predniSONE 20 MG TAB 40 MG PO (08:57)
[2021-11-27] MEDS: Tiotropium/Olodaterol 10 PUFF INHALER 2 PUFF IH (09:13)
[2021-11-27] MEDS: Acetaminophen 325 MG TAB PO ×3 (09:22→19:57)
--- NOTE | 2021-11-27 12:52 | PT.INTREAT ---
PT Notes Visit Reasons: Acute CHF,Atrial Fibrillation with RVR SUBJECTIVE: Pt in bed when approached for therapy this morning. pt agreed to participating with therapy. OBJECTIVE: ? PAIN: Same as yesterday, 12/12 for L shoulder, 11/12 for R shoulder, 11/12 for cervicothoracic pain. ? BED MOBILITY/TRANSFERS? Sit-stand: supervision ? Stand-sit: supervision ? GAIT? Assistive Device: no AD ? Weight bearing: Full Assist: Supervision ? Distance: within perimeter of pt room? Deviation: unremarkable THERA EX: Needed minimal cueing to stay on task for the following while seated on chair -Sit to stand without UE support 5x1set pt taking rest break per interval -Gentle scapular squeezes with B arms on B sides, seated at EOB x 10 with no report of increased pain -Gentle shoulder shrugs with B arms on B sides, seated at EOB x 10 with no report of increased pain -L shoulder flexion AROM/hand slide on lap before the point of pain x 5 -AAROM to L elbow flexion to about 30 degrees before the point of pain x 5 -Slow tummy rubs/hand up and down tummy x10, -AROM to L wrist extension to about 10 degrees before the point of pain 10 -AROM to L wrist flexion to about 10 degrees before the point of pain x 10 -Hand squeezes x 20 using yellow foam -Isometrics to L shoulder muscles (shoulder in neutral) 10secs hold 3x each (flexion,extension, abduction,adduction, internal,external rotation). -Dynamic standing balance activities (sit to stand 5x without UE support, static standing with neutral step width 30secs, room ambulation without AD supervision, Standing hip 3way [id number]) ASSESSMENT:?pt still with strong muscle guarding on L shoulder, pt gets easily distracted requiring constant redirection to focus on task. PLAN: Continue with transfer training and global strengthening, as tolerated and directed in PT's POC. TREATMENT CODE/TIME: Session 1: 45 minutes; 65228 x3 (09:15) ?
--- NOTE | 2021-11-27 13:00 | PTTR_ITS ---
PT Notes Visit Reasons: Acute CHF,Atrial Fibrillation with RVR SUBJECTIVE: Pt awake sitting in recliner when approached for therapy. pt rep orted pain on bilateral shoulder and neck upper and lower back, pt requesting for pain meds and is waiting for nurse to administer medication when BUSINESS SUPPORT went in pt room. OBJECTIVE: ? PAIN: 12/12 for L shoulder, 11/12 for R shoulder, 11/12 for cervicothoracic pain. ? BED MOBILITY/TRANSFERS? Sit-stand: CGA? Stand-sit: CGA ? GAIT? Assistive Device: no AD ? Weight bearing: Full Assist: Supervision ? Distance: within perimeter of pt room? Deviation: unremarkable THERA EX: Needed minimal cueing to stay on task for the following while seated on chair -gentle scapular squeezes with B arms on B sides, seated at EOB x 10 with no report of increased pain -gentle shoulder shrugs with B arms on B sides, seated at EOB x 10 with no report of increased pain -L shoulder flexion AROM/hand slide on lap before the point of pain x 5 -AAROM to L elbow flexion to about 30 degrees before the point of pain x 5 -Slow tummy rubs/hand up and down tummy x10, -AROM to L wrist extension to about 10 degrees before the point of pain 10 -AROM to L wrist flexion to about 10 degrees before the point of pain x 10 -Hand squeezes x 20 using yellow foam -Isometrics to L shoulder muscles (shoulder in neutral) 10secs hold 3x each (flexion,extension, abduction,adduction, internal,external rotation). -Dynamic standing balance activities (sit to stand 2x, static standing with neutral step width 30secs, room ambulation without AD supervision) ASSESSMENT:? Pt showing increased muscle guarding initially for L and R shoulder movement, pt able to relax a little bit after R shoulder manual therapy and was able to perform therapeutic procedure on both shoulders with less apprehension. PLAN: Continue with transfer training and global strengthening, as tolerated and directed in PT's POC. TREATMENT CODE/TIME: Session 1: 45 minutes; 61711 x3 (09:50) ?
--- NOTE | 2021-11-27 16:06 | W.PM.PROGNOT ---
Date of Service Date of service: 11/27/21 Time of Service: 16:06 Assessment and Plan Assessment and plan (1) Acute on chronic diastolic heart failure: Status: Acute Assessment and plan: Continue current dose of PO lasix (2) Acute exacerbation of chronic obstructive pulmonary disease: Status: Ruled-out Assessment and plan: Azithromycin and cefpodoxime - schedule duonebs. Add mucinex. Obtain sputum culture. Add acapella. (3) A-fib: Status: Chronic Assessment and plan: The patient was switched to metoprolol from his home propranolol. It appears that his rate is currently well controlled. Continue current dose of metoprolol (12.5 mg PO q8hrs). Qualifiers: Atrial fibrillation type: longstanding persistent Qualified Code(s): I48.11 - Longstanding persistent atrial fibrillation (4) Closed fracture of left proximal humerus: Status: Resolved Assessment and plan: s/p repair of the fracture. PT consulted. (5) Right shoulder pain: Status: Acute Assessment and plan: Xray: Five views were obtained.? There is a fracture of the distal clavicle with moderate displacement.? There may be mild callus formation at the fracture site.? No additional fracture seen. Right arm sling if tolerated Continue lidocaine patches. PT. (6) DVT prophylaxis: Status: Acute Assessment and plan: Trial SC heparin. Has a listed history of gastritis and duodenitis - low threshold to stop. (7) Discharge planning issues: Status: Acute Assessment and plan: Full code, per conversation with the patient. Anticipate SNF placement. Continues to require hospitalization. Discussed with Dr Slaughter Subjective Subjective Patient reports: no new complaints Interval history since last seen: He would like to go home Exam Narrative Exam Narrative: General: Pleasant middle-aged male semi-fowlers in bed, about to go to the shower room HEENT: EOMI, MMM Heart: irregularly irregular rhythm, no m/r/g Lungs: crackles and wheezes bilaterally; improved - mostly clears with cough. Abdomen: soft, nontender, nondistended Extremities: trace edema at B ankles Objective Last Vital Signs Temp 36.4 C L 11/27/21 15:20 Pulse 95 H 11/27/21 15:20 Resp 19 11/27/21 15:20 BP 117/72 11/27/21 15:20 Pulse Ox 95 11/27/21 15:20 Laboratory Results - last 24 hr 11/27/21 11/27/21 06:32 07:40 Sodium Cancelled 132 L Potassium Cancelled 4.4 Chloride Cancelled 99 Carbon Dioxide Cancelled 25.4 Anion Gap Cancelled 7.6 BUN Cancelled 17 Creatinine Cancelled 1.7 H Est GFR (CKD-EPI 2020) Cancelled 43.91 Glucose Cancelled 175 H Calcium Cancelled 8.9 Magnesium Cancelled 1.8 Reviewed Pertinent PMH: Yes
[2021-11-27] MEDS: Lidocaine 5% Patch 1 PATCH TP (17:10)
[2021-11-27] MEDS: Polyethylene Glycol 3350 17 GM PACKET PO (17:10)
[2021-11-27] MEDS: Terazosin 2 MG CAP PO (21:27)
[2021-11-27] MEDS: Zolpidem 10 MG TAB PO (23:20)
[2021-11-27] MEDS: Diclofenac 1% Gel 100 GM TUBE TP (23:21)
[2021-11-28] VITALS (15 sets, daily range): BP systolic 101–129; BP diastolic 66–90; PULSE 77–112; RESP 1–19; TEMP 35.5–36.5; O2SAT 96–100
[2021-11-28] MEDS: Acetaminophen 325 MG TAB PO ×2 (01:28→23:08)
[2021-11-28] MEDS: oxyCODONE 5 MG TAB PO ×5 (04:07→21:43)
[2021-11-28] MEDS: Metoprolol 12.5 MG TAB PO ×3 (06:41→21:43)
[2021-11-28] MEDS: Pantoprazole 40 MG TABCR PO (06:41)
[2021-11-28] MEDS: Baclofen 10 MG TAB PO (06:41)
[2021-11-28] MEDS: Heparin 5,000 UNITS/ML VIAL 5000 UNITS SC ×2 (06:42→21:43)
[2021-11-28] MEDS: Magnesium Oxide 400 MG TAB PO (07:44)
[2021-11-28] MEDS: guaiFENesin 600 MG TABCR PO ×2 (07:44→20:49)
[2021-11-28] MEDS: Topiramate 50 MG TAB PO ×2 (07:44→20:49)
[2021-11-28] MEDS: predniSONE 20 MG TAB 40 MG PO (07:44)
[2021-11-28] MEDS: Cefpodoxime 200 MG TAB PO ×2 (07:44→20:49)
[2021-11-28] MEDS: Aspirin E.C. 81 MG TABEC PO (07:45)
[2021-11-28] MEDS: Gabapentin 800 MG TAB PO ×3 (07:45→20:49)
[2021-11-28] MEDS: buPROPion-CR 150 MG TABCR PO ×2 (07:45→20:49)
[2021-11-28] MEDS: Citalopram 20 MG TAB PO (07:45)
[2021-11-28] MEDS: Potassium Chloride 20 MEQ TABCR PO ×2 (07:45→20:49)
[2021-11-28] MEDS: Azithromycin 250 MG TAB 500 MG PO (07:46)
[2021-11-28] MEDS: Tiotropium/Olodaterol 10 PUFF INHALER 2 PUFF IH (07:55)
--- NOTE | 2021-11-28 08:51 | PDOC.CMPRO ---
- If Service Date Differs Date of service: 11/28/21 Time of Service: 08:51 Care Management Progress Note S/O:Geovani was sitting up in bed this afternoon when CM met with him. When asked how he was doing, he responded not bad at all. He shared that he has been working with PT and is able to ambulate independently. He has recently learned that his right clavicle is fractured as well as his left humerus but feels it is getting better. Last week Geovani agreed to consider a short stay in rehab before returning home, but today stated that he wants to go home. He informed CM that he found someone that he can pay to help him with housework and companionship at home and his niece has offered to help with transportation and obtaining his medications for him. Geovani stated that he would like to be discharged tomorrow. A: Geovani is a 66 year old man admitted on 11/23/21 with CHF and afib P:Geovani had agreed to go to a SNF for short term rehab prior to returning home, however has since decided he would prefer to go home. He feels with the additional help he is arranging, that he will be able to manage at home alone. He is requesting home heaslt services which will be ordered at discharge. CM will follow and continue to assess for discharge concerns.
--- NOTE | 2021-11-28 10:58 | DSE_ITS ---
Date of service: 11/28/21 Time of Service: 10:58 DS: Diagnosis Discharge Diagnosis (1) Acute on chronic diastolic heart failure: Status: Acute (2) Acute exacerbation of chronic obstructive pulmonary disease: Status: Ruled-out (3) A-fib: Status: Chronic (4) Closed fracture of left proximal humerus: Status: Resolved (5) Right shoulder pain: Status: Acute (6) DVT prophylaxis: Status: Acute (7) Discharge planning issues: Status: Acute Discharge Plan Disposition Patient Disposition: HOME Condition: Serious Discharge Details Reason For Visit: Acute CHF,Atrial Fibrillation with RVR Admit Date/Time: 11/23/21 19:23 Admit Provider: Jerson Delarosa Attending Provider: Jerson Delarosa Primary Care Provider: Sherri Guzman V Home Meds and New Rx's Prescriptions: Continued aspirin 81 mg Tablet,Delayed Release (Dr/Ec) 81 mg PO DAILY cyclobenzaprine 10 mg Tablet 10 mg PO TID PRN PRN bupropion HCl 150 mg Tablet Sustained-Release 12 Hr 150 mg PO BID hydrocodone-acetaminophen 10-325 mg Tablet 1 - 2 tab PO QAM citalopram 20 mg Tablet 20 mg PO QAM gabapentin 800 mg Tablet 800 mg PO TID albuterol sulfate 90 mcg/actuation Hfa Aerosol Inhaler 2 puff INHALATION Q6H PRN PRN diclofenac sodium 1 % Gel 4 g TOPICAL BID PRN PRN Bevespi Aerosphere 9-4.8 mcg Hfa Aerosol Inhaler 2 puff INHALATION BID verapamil 120 mg Tablet Extended Release 120 mg PO DAILY propranolol 160 mg Capsule,Extended Release 24 Hr 160 mg PO DAILY sumatriptan succinate 25 mg Tablet See Rx Instructions .ROUTE .COMPLEX Label Comments: Pt reports last use sometime over the summer Rx Instructions: Pt unable to confirm strength of sumatriptan- si tab po at onset of headache, if no relief may repeat 1 tab after at least 2 hours, max 4 tabs/24 hours triamcinolone acetonide 0.1 % Cream 1 applic TOPICAL BID Label Comments: Pt has discontinued medication but has on hand in case he needs in the future magnesium oxide 400 mg (241.3 mg magnesium) Tablet 400 mg PO DAILY terazosin 2 mg Capsule 2 mg PO QHS pantoprazole 40 mg Tablet,Delayed Release (Dr/Ec) 40 mg PO DAILY polyethylene glycol 3350 17 gram/dose Powder 17 g PO DAILY PRN PRN topiramate 50 mg Tablet 50 mg PO BID lidocaine 5 % Gel 1 applic topical QID PRN PRN zolpidem 10 mg Tablet 10 mg PO QHS PRN (Reason: Insomnia) baclofen 10 mg Tablet 10 mg PO TID PRN Label Comments: Pt reports that he doesn't use this, prescription authorized on 11/18/21 oxycodone 10 mg Tablet 10 mg PO QID PRN Label Comments: Pt reports that he doesn't use this, prescription authorized on 11/18/21 Discontinued hydrocodone-acetaminophen [Temple] 7.5-325 mg Tablet 1 tab PO QHS PRN Discharge Instructions Stand Alone Forms: Nursing Discharge Form Referrals: Eh Hastings MD [ [facility]FF [facility]YSICIAN] - 01/04/22 2:15 pm DS: Data Vitals/I&O Vitals and I&O: Vital Signs Temperature 36.0 C L 11/28/21 08:04 Temperature Source Tympanic 11/28/21 08:04 Pulse 85 11/28/21 08:04 Pulse Rhythm Irregular 11/28/21 09:56 Pulse 68 11/23/21 20:32 Respiratory Rate 19 11/28/21 08:04 Respiratory Effort 11/28/21 09:56 Respiratory Depth Normal 11/28/21 09:56 Respiratory Pattern Normal 11/28/21 09:56 Blood Pressure 105/75 11/28/21 08:04 Blood Pressure Mean 77 11/23/21 20:32 Pulse Oximetry 98 11/28/21 08:04 Oxygen Delivery Method Room Air 11/28/21 08:04 Oxygen Flow Rate 0 11/28/21 08:04 Pain Level 8 11/28/21 08:04 Comment 11/26/21 23:20 Intake & Output 11/27/21 11/27/21 11/28/21 11:59 23:59 11:59 Intake Total 400 / 1560 1160 / 1560 760 / 760 Balance 400 / 1560 1160 / 1560 760 / 760 Weight 79.3 kg 79.4 kg Intake: Oral 400 / 1560 1160 / 1560 760 / 760 Other: Urine Color Pale Urine Odor None Comment Occasional incontinence at night pT stated that he voided. pT goes to bathroom independently. Voiding Methods Incontinent Toilet Toilet Data Completed and Pending Labs on day of discharge: 11/26/21 20:00 Sputum Sputum Culture - Pending Preliminary micro results at discharge 11/26/21 20:00 Sputum Culture - Pending Sputum PFSH All Active Problems (Updated 11/26/21 @ 17:44 by Munira Pina MD) Right shoulder pain (Acute) CHF (congestive heart failure) (Chronic) No-show for appointment (Acute) Left leg weakness (Acute) MCL sprain of right knee (Acute) Alcohol abuse (Chronic) Chest discomfort (Chronic) Acute on chronic diastolic heart failure (Acute) Bilateral pleural effusion (Acute) Falls (Acute) Discharge planning issues (Acute) DVT prophylaxis (Acute) Pulmonary nodule (Acute) Acute respiratory failure with hypoxia (Acute) Pneumonia (Acute) Acute respiratory distress (Acute) Femur fracture, right (Acute) Fracture, rib (Acute) A-fib (Chronic) Laceration of digital nerve of left thumb (Acute) Gastritis and duodenitis (Acute) Medical History Alcohol withdrawal Arthritis COPD (chronic obstructive pulmonary disease) Depression Hepatitis C Per H&P: s/p tx. . He had an abc CT earlier this year which showed a normal liver. Hypertension Neck fracture Per pt. states he broke his nevk 5-6 years ago. 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
[2021-11-28] MEDS: Albuterol/Ipratropium 3 ML UPD VIAL UPD (11:44)
--- NOTE | 2021-11-28 13:48 | W.PM.PROGNOT ---
Date of Service Date of service: 11/28/21 Time of Service: 13:48 Assessment and Plan Assessment and plan (1) Acute on chronic diastolic heart failure: Status: Acute Assessment and plan: Continue current dose of PO lasix (2) Acute exacerbation of chronic obstructive pulmonary disease: Status: Ruled-out Assessment and plan: Continue Azithromycin and cefpodoxime - scheduled duonebs, continue mucinex. Sputum culture: GN Cocco Bacillus, GP Lauren, NL Lauren, covered by cefpodoxime, will continue - continue acapella. (3) A-fib: Status: Chronic Assessment and plan: The patient was switched to metoprolol from his home propranolol. It appears that his rate is currently well controlled. Continue current dose of metoprolol (12.5 mg PO q8hrs). Qualifiers: Atrial fibrillation type: longstanding persistent Qualified Code(s): I48.11 - Longstanding persistent atrial fibrillation (4) Closed fracture of left proximal humerus: Status: Resolved Assessment and plan: s/p repair of the fracture. PT consulted. (5) Right shoulder pain: Status: Acute Assessment and plan: Xray: Five views were obtained.? There is a fracture of the distal clavicle with moderate displacement.? There may be mild callus formation at the fracture site.? No additional fracture seen. Right arm sling if tolerated Continue lidocaine patches. PT. (6) DVT prophylaxis: Status: Acute Assessment and plan: Trial SC heparin. Has a listed history of gastritis and duodenitis - low threshold to stop. (7) Discharge planning issues: Status: Acute Assessment and plan: Full code, per conversation with the patient. Anticipate SNF placement - referrals out - pending Continues to require hospitalization. Discussed with Dr Slaughter Subjective Subjective Patient reports: no new complaints, feels better, pain is less, tolerating a regular diet and afebrile; denies diarrhea, vomiting or shortness of breath Interval history since last seen: With bilateral arm injury, it will be difficult for him to succeed at home. We will continue to seek placement for rehab. Exam Narrative Exam Narrative: General: Pleasant middle-aged male semi-fowlers in bed, conversant, curious HEENT: EOMI, MMM Heart: irregularly irregular rhythm, no m/r/g 80's Lungs: crackles and wheezes bilaterally; improved - mostly clears with cough. Abdomen: soft, nontender, nondistended Extremities: trace edema at B ankles Objective Last Vital Signs Temp 35.9 C L 11/28/21 11:13 Pulse 89 11/28/21 13:45 Resp 16 11/28/21 13:45 BP 102/75 11/28/21 13:45 Pulse Ox 99 11/28/21 13:45
--- NOTE | 2021-11-28 14:47 | PT.INTREAT ---
Date of service: 11/28/21 Time of Service: 14:10 PT Notes Visit Reasons: Acute CHF,Atrial Fibrillation with RVR Inpatient Physical Therapy Treatment Note [facility] Date: 11/28/2021 PRECAUTIONS: Fall, NWB on L UE SUBJECTIVE: Derrick reports that he is feeling very tired today. He does not want to walk, however is agreeable to attempt PROM to L shoulder. OBJECTIVE: PAIN: Patient reports pain in L shoulder with all movement BED MOBILITY/TRANSFERS/GAIT: Declined due to fatigue RANGE OF MOTION: Attempted to perform PROM to patient's L shoulder. Patient was very guarded throughout the process, only allowing for minimal movement of joint into flexion, extension, abduction, IR and ER. He completed AAROM into elbow flexion and extension, forearm supination and pronation, and wrist flexion, extension and radial and ulnar deviation. ASSESSMENT: Patient tolerated session with c/o L shoulder pain, increasing with activity. He tolerates the addition of P/AAROM exercises, although is very guarded, tolerating very limited range. PLAN: Continue with ROM exercises as patient allows. TREATMENT CODE/TIME: 15 minutes; 01303 (14:10)
[2021-11-28] MEDS: Lidocaine 5% Patch 1 PATCH TP (17:31)
[2021-11-28] MEDS: Terazosin 2 MG CAP PO (21:43)
[2021-11-28] MEDS: Zolpidem 10 MG TAB PO (23:10)
[2021-11-29 02:45] VITALS: BP 139/89; PULSE 90; RESP 16; TEMP 36; O2SAT 98
[2021-11-29] MEDS: Acetaminophen 325 MG TAB PO (05:55)
[2021-11-29] MEDS: Heparin 5,000 UNITS/ML VIAL 5000 UNITS SC (05:55)
[2021-11-29] MEDS: oxyCODONE 5 MG TAB PO ×2 (05:56→12:10)
[2021-11-29] MEDS: Metoprolol 12.5 MG TAB PO (05:56)
[2021-11-29 07:27] LABS: Abs Immature Grans 0.07 10^3/uL (0.0-0.06); Absolute Basophil Count 0.01 10^3/uL (0.0-0.2); Absolute Eosinophil Count 0.01 10^3/uL (0.0-0.7); Absolute Monocyte Count 1.11 10^3/uL (0.1-0.8); Absolute Neutrophil Count 8.47 10^3/uL (1.2-6.7); Basophils % 0.1; Eosinophils % 0.1; HCT 31.4 % (40.0-50.0); HGB 10.1 g/dL (13.5-17.5); Immature Grans % 0.6; Lymphocytes % 19.1; MCH 31.2 pg (27.0-33.0); MCHC 32.2 % (32.0-36.0); MCV 97 fL (80-95); MPV 10.7 fL (8.0-11.0); Monocytes % 9.3; Neutrophils % 70.8; Platelet Count 498 10^3/uL (130-400); RBC 3.24 10^6/uL (4.36-5.78); RDW 12.9 % (11.8-14.1); RDW-SD 46.3 fL; WBC 11.96 10^3/uL (4.4-10.8)
[2021-11-29 07:33] LABS: Absolute Lymphocyte Count 2.28 10^3/uL (1.2-3.4)
[2021-11-29 07:34] LABS: Anion Gap 8.8 mmol/L (3-11); BUN 21 mg/dL (7-18); CO2 24.2 mmol/L (21.0-32.0); CREATININE 1.5 mg/dL (0.70-1.30); Calcium 9.3 mg/dL (8.5-10.1); Chloride 104 mmol/L (98-107); Estimated GFR 51.03 (mL/min/1.73m2); Glucose 99 mg/dL (74-106); Magnesium 1.8 mg/dL (1.8-2.4); Potassium 4.2 mmol/L (3.5-5.1); Sodium 137 mmol/L (136-145)
[2021-11-29 07:50] VITALS: BP 125/84; PULSE 94; RESP 19; TEMP 36.6; O2SAT 97
[2021-11-29] MEDS: Tiotropium/Olodaterol 10 PUFF INHALER 2 PUFF IH (08:41)
[2021-11-29] MEDS: Citalopram 20 MG TAB PO (08:58)
[2021-11-29] MEDS: Potassium Chloride 20 MEQ TABCR PO (08:58)
[2021-11-29] MEDS: Aspirin E.C. 81 MG TABEC PO (08:58)
[2021-11-29] MEDS: Pantoprazole 40 MG TABCR PO (08:59)
[2021-11-29] MEDS: buPROPion-CR 150 MG TABCR PO (08:59)
[2021-11-29] MEDS: Azithromycin 250 MG TAB 500 MG PO (08:59)
[2021-11-29] MEDS: Topiramate 50 MG TAB PO (09:00)
[2021-11-29] MEDS: predniSONE 20 MG TAB 40 MG PO (09:00)
[2021-11-29] MEDS: Gabapentin 800 MG TAB PO (09:00)
[2021-11-29] MEDS: Magnesium Oxide 400 MG TAB PO (09:00)
[2021-11-29] MEDS: Cefpodoxime 200 MG TAB PO (09:00)
[2021-11-29] MEDS: guaiFENesin 600 MG TABCR PO (09:00)
--- NOTE | 2021-11-29 10:25 | DSE_ITS ---
DS: Diagnosis Discharge Diagnosis (1) Acute on chronic diastolic heart failure: Status: Acute (2) Acute exacerbation of chronic obstructive pulmonary disease: Status: Ruled-out (3) A-fib: Status: Chronic (4) Closed fracture of left proximal humerus: Status: Resolved (5) Right shoulder pain: Status: Acute Discharge Plan Disposition Patient Disposition: SNF (LEVEL 1) [facility] Condition: Stable Discharge Details Reason For Visit: Acute CHF,Atrial Fibrillation with RVR Admit Date/Time: 11/23/21 19:23 Admit Provider: Jerson Delarosa Attending Provider: Jerson Delarosa Primary Care Provider: Sherri Guzman V Hospital Course Hospital Course: Patient with a past medical history of acute on chronic diastolic heart failure, COPD, alcohol abuse and gastritis, presented to the emergency department for multiple complaints.? Patient reported recent discharge from hospital due to fall and left shoulder injury with surgical repair.? He stated for two days he has had uncontrollable diarrhea and urinary symptoms.? Patient also reports lower extremity swelling and some occasional rapid heart rate.? Patient reported that he has only been taking 81 mg of aspirin and otherwise has not taken any of his other medications.? Patient stated he has no assistance while at home and is finding it difficult to care for himself.? Physical exam showed significant irregular heart rhythm no specific abdominal tenderness and 2+ pitting edema of lower extremities.? Hemoccult was negative. Please see physician interpretation for full interpretation of EKG but patient is in atrial fibrillation with rapid ventricular response.? Review of initial labs showed stable CBC with hemoglobin of 11.? CMP showed potassium of 3.2, he was given oral potassium, slight elevation of total bilirubin at 1.1 and AST of 71 with ALT of 41.? Alk phos is 140 and patient has low albumin.? Urinalysis was unremarkable for infection.? He was given push doses of metoprolol and p.o. propanolol in the ED. He was admitted to the medical unit. He was found to have an old left distal clavicle fracture with moderated displacement, and a known fracture of the left humeral head and neck with severe displacement and the humeral head is rotated and completely inverted suspect that it is probably dislocated somewhat posteriorly relative to the glenoid fossa. He was seen by orthopedics previously for his left arm. He was a no show at his orthopedic follow up the day before admission. He was started on azithromycin and cefpodoxime for bronchitis. He improved slowly, labs normalized and he was medically stable to go home. He was also considering a Correction. Just prior to his departing home, [facility] accepted him. He chose to go there rather than go home. It will be considerably beneficial for him. This should improve his ability to carry out ADL's. He was discharged on cefpodoxime and prenisone. He left stable, and significantly improved. Home Meds and New Rx's Prescriptions: New albuterol sulfate 2.5 mg /3 mL (0.083 %) Solution For Nebulization 2.5 mg UPD Q2H PRN PRNQty: 0 0RF ipratropium-albuterol 0.5 mg-3 mg(2.5 mg base)/3 mL Solution For Nebulization 3 ml UPD Q6H Qty: 0 0RF oxycodone 5 mg Tablet 5 mg PO HS Qty: 0 0RF oxycodone 5 mg Tablet 5 mg PO Q4H PRN PRNQty: 0 0RF polyethylene glycol 3350 17 gram Powder In Packet 17 g PO DAILY PRN PRN (Reason: Constipation) Qty: 0 0RF furosemide 80 mg Tablet 80 mg PO BID@0830,1600 Qty: 0 0RF guaifenesin [Mucus Relief ER] 600 mg Tablet Extended Release 12hr 600 mg PO BID Qty: 0 0RF lidocaine 5 % Adhesive Patch,Medicated 1 patch topical Q24H Qty: 0 0RF azithromycin 250 mg Tablet 500 mg PO DAILY Qty: 0 0RF cefpodoxime 200 mg Tablet 200 mg PO BID Qty: 0 0RF prednisone 20 mg Tablet 40 mg PO DAILY Qty: 0 0RF metoprolol tartrate 25 mg Tablet 12.5 mg PO Q8H Qty: 0 0RF Continued aspirin 81 mg Tablet,Delayed Release (Dr/Ec) 81 mg PO DAILY cyclobenzaprine 10 mg Tablet 10 mg PO TID PRN PRN bupropion HCl 150 mg Tablet Sustained-Release 12 Hr 150 mg PO BID hydrocodone-acetaminophen 10-325 mg Tablet 1 - 2 tab PO QAM citalopram 20 mg Tablet 20 mg PO QAM gabapentin 800 mg Tablet 800 mg PO TID albuterol sulfate 90 mcg/actuation Hfa Aerosol Inhaler 2 puff INHALATION Q6H PRN PRN diclofenac sodium 1 % Gel 4 g TOPICAL BID PRN PRN Bevespi Aerosphere 9-4.8 mcg Hfa Aerosol Inhaler 2 puff INHALATION BID verapamil 120 mg Tablet Extended Release 120 mg PO DAILY propranolol 160 mg Capsule,Extended Release 24 Hr 160 mg PO DAILY sumatriptan succinate 25 mg Tablet See Rx Instructions .ROUTE .COMPLEX Label Comments: Pt reports last use sometime over the summer Rx Instructions: Pt unable to confirm strength of sumatriptan- si tab po at onset of headache, if no relief may repeat 1 tab after at least 2 hours, max 4 tabs/24 hours triamcinolone acetonide 0.1 % Cream 1 applic TOPICAL BID Label Comments: Pt has discontinued medication but has on hand in case he needs in the future magnesium oxide 400 mg (241.3 mg magnesium) Tablet 400 mg PO DAILY terazosin 2 mg Capsule 2 mg PO QHS pantoprazole 40 mg Tablet,Delayed Release (Dr/Ec) 40 mg PO DAILY polyethylene glycol 3350 17 gram/dose Powder 17 g PO DAILY PRN PRN topiramate 50 mg Tablet 50 mg PO BID lidocaine 5 % Gel 1 applic topical QID PRN PRN zolpidem 10 mg Tablet 10 mg PO QHS PRN (Reason: Insomnia) baclofen 10 mg Tablet 10 mg PO TID PRN Label Comments: Pt reports that he doesn't use this, prescription authorized on 11/18/21 Discontinued hydrocodone-acetaminophen [Warren] 7.5-325 mg Tablet 1 tab PO QHS PRN oxycodone 10 mg Tablet 10 mg PO QID PRN Label Comments: Pt reports that he doesn't use this, prescription authorized on 11/18/21 Discharge Instructions Additional Instructions: Wear the arm sling when awake. CONTINUE: Azithromycin 500 mg orally 11/30 & 12/01 Cefpodoxime 200 mg orally twice a day for 7 days Doxycycline 100 mg twice orally twice a day for 7 days Prednisone 40 mg orally for four days Metoprolol 12.5 mg orally three times a day Furosemide 80 mg orally twice a day Stand Alone Forms: Nursing Discharge Form Referrals: Caroline Traore [NURSE PRACTITIONER] - 12/08/21 12:45 pm Eh Hastings MD [ [facility] STAFF PHYSICIAN] - 01/04/22 2:15 pm Activity:: Activity as Tolerated Equipment/Supplies:: No Equipment Needed Diet:: As Tolerated Discharge Orders Discharge Orders: Discharge Order (Routine); Ordered 11/29/21 Ordered By: Mary Ann Nettles Discharge Data Discharge Date/Time-TO BE ENTERED AT DEPARTURE: 11/29/21 13:07 DS: Summary Time Spent with Patient providing and/or coordinating discharge services: Less than 30 minutes Status at Discharge Functional status at discharge: uses cane/walker Overall status at discharge: patient is progressing back to baseline Mental Status: mental status grossly normal Speech and Movement: speech and movement normal Mood: congruent mood Affect: normal affect Exam Narrative Exam Narrative: General: Pleasant middle-aged male semi-fowlers in bed, conversant, curious HEENT: EOMI, MMM Heart: irregularly irregular rhythm, no m/r/g 80's Lungs: crackles and wheezes bilaterally; improved - mostly clears with cough. Abdomen: soft, nontender, nondistended Extremities: trace edema at B ankles Psych Mental Status: mental status grossly normal Speech and Movement: speech and movement normal Mood: congruent mood Affect: normal affect DS: Data Vitals/I&O Vitals and I&O: Vital Signs Temperature 36.6 C 11/29/21 07:50 Temperature Source Tympanic 11/29/21 07:50 Pulse 94 H 11/29/21 07:50 Pulse Rhythm Irregular 11/29/21 02:50 Pulse 68 11/23/21 20:32 Respiratory Rate 19 11/29/21 07:50 Respiratory Effort Non-Labored 11/29/21 02:50 Respiratory Depth Normal 11/29/21 02:50 Respiratory Pattern Normal 11/29/21 02:50 Blood Pressure 125/84 11/29/21 07:50 Blood Pressure Mean 77 11/23/21 20:32 Pulse Oximetry 97 11/29/21 07:50 Oxygen Delivery Method Room Air 11/29/21 07:50 Oxygen Flow Rate 0 11/29/21 07:50 Pain Level 9 11/29/21 07:50 Comment 11/28/21 11:13 Intake & Output 11/28/21 11/28/21 11/29/21 11:59 23:59 11:59 Intake Total 760 / 1010 250 / 1010 200 / 200 Balance 760 / 1010 250 / 1010 200 / 200 Weight 79.4 kg 79.8 kg Intake: Oral 760 / 1010 250 / 1010 200 / 200 Other: Urine Color Yellow Urine Appearance Clear Clear Comment pT stated that he voided. pT goes to bathroom independently. pT goes to bathroom independently. patient voids in toilet independently Voiding Methods Toilet Toilet Toilet Data Completed and Pending Labs on day of discharge: Labs from last 24 hours 11/29/21 11/29/21 06:40 06:40 WBC 11.96 H RBC 3.24 L Hgb 10.1 L Hct 31.4 L MCV 97 H MCH 31.2 MCHC 32.2 RDW 12.9 Plt Count 498 H MPV 10.7 Immature Gran % 0.6 Neutrophils % 70.8 Lymphocytes % 19.1 Monocytes % 9.3 Eosinophils % 0.1 Basophils % 0.1 Nucleated RBC % 0.0 Absolute Neutrophils 8.47 H Absolute Lymphocytes 2.28 Absolute Monocytes 1.11 H Absolute Eosinophils 0.01 Absolute Basophils 0.01 Sodium 137 Potassium 4.2 Chloride 104 Carbon Dioxide 24.2 Anion Gap 8.8 BUN 21 H Creatinine 1.5 H Est GFR (CKD-EPI 2020) 51.03 Glucose 99 Calcium 9.3 Magnesium 1.8 Preliminary micro results at discharge 11/26/21 20:00 Sputum Culture - Preliminary Sputum Gram Negative Cocco Bacillus Staph aureus, MRSA Normal Lauren PFSH All Active Problems (Updated 11/30/21 @ 00:09 by FRANK MILLAN) Right shoulder pain (Acute) CHF (congestive heart failure) (Chronic) No-show for appointment (Acute) Left leg weakness (Acute) MCL sprain of right knee (Acute) Alcohol abuse (Chronic) Chest discomfort (Chronic) Acute on chronic diastolic heart failure (Acute) Bilateral pleural effusion (Acute) Falls (Acute) Pulmonary nodule (Acute) Acute respiratory failure with hypoxia (Acute) Pneumonia (Acute) Acute respiratory distress (Acute) Femur fracture, right (Acute) Fracture, rib (Acute) A-fib (Chronic) Laceration of digital nerve of left thumb (Acute) Gastritis and duodenitis (Acute) Medical History Alcohol withdrawal Arthritis COPD (chronic obstructive pulmonary disease) Depression Hepatitis C Per H&P: s/p tx. . He had an abc CT earlier this year which showed a normal liver. Hypertension Neck fracture Per pt. states he broke his nevk 5-6 years ago. 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
--- NOTE | 2021-11-29 10:51 | PDOC.HHF2F_ITS ---
Home Health Certification Home Health Certification: 1. Encounter Date and Reason I certify that Derrick Nolan was seen by Mary Ann Nettles NP on 11/29/21 and that I had a [id number] encounter with this patient that meets the physician face to face encounter requirements. 2. Clinical Findings Supporting Skilled Need and Homebound Status I certify that home health services are medically necessary, include either intermittent snf and/or physical/speech therapy, and that this p atient is homebound in that absences from the home require considerable and taxing effort and are infrequent or of short duration, or are attributable to the need to receive medical care. [X] (a) Attached documentation from encounter provides clinical findings supporting skilled need and homebound status (including what assistance patient requires to leave the home). The encounter with the patient was in whole, or in part, for the following medical condition, which is the primary reason for home health care: Acute CHF,Atrial Fibrillation with RVR Custodial: Skilled observation, assessment and intervention of the patient?s condition including symptom control, vital signs, diet, disease process, to include COPD and CHF; education regarding nutrition related to his chronic condition.? Please pour meds weekly. Please provide education regarding the importance of taking his medication, when to take it, why he is taking it and the outcomes if he doesn't. Please draw a CBC and BMP; results to PCP. Physical Therapy: Assess and plan an exercise program to regain movement and strength, teach safety, energy conservation, and any assistive device evaluation and education. Occupational Therapy: Assess and teach ability to perform ADL?s, safety. - he has a fracture of the left humeral head and neck with severe displacement and a fracture of the right distal clavicle with moderate displacement making it difficult to perform many tasks. He would benefit from a short term aid. METAL WORKER: Assessment of social and emotional factors related to chronic disease, appropriate action to obtain available financial and community resources available. Homebound: Patient is unable to safely drive; he has a fracture of the left humeral head and neck with severe displacement and a fracture of the right distal clavicle with moderate displacement. He should not go out on uneven ground without assistance from another person, he is at risk for falling. 3. Certification and Authentication I certify that I composed the above information based on my clinical judgement relating to this patient's medical condition and, if applicable, clinical findings communicated to me by the NPP or inpatient physician who performed the Home Health Referral. All further orders will be obtained through Dr. Guzman
[2021-11-29 12:07] VITALS: BP 112/80; PULSE 98; RESP 18; TEMP 36.7; O2SAT 96
[2021-11-29] MEDS: Doxycycline Hyclate 100 MG CAP PO (12:10)
--- NOTE | 2021-11-29 13:28 | PDOC.CMDIS ---
- If Service Date Differs Date of service: 11/29/21 Time of Service: 13:30 LACE Index Scoring Tool - Questions: Length of Stay (in days): 4 - 6 Acuity (Admit via E.D.?): Yes Comorbidities: Congestive Heart Failure, Chronic Pulmonary Disease, Liver or Renal Disease E.D. Visits: 4 - Answers: Total Score: 16 Risk of Readmission: High Risk Care Management Discharge Reason for Hospitalization: afib with RVR Discharge Plan: Geovani will be discharged to the [facility] later today. The plan was for him to return home since no bed offers had been received, however when the [facility] offtered a bed he happily accepted it. Geovani preferred to go to rehab before returning home to continue building strength and endurance. He will transport via [facility] coordinated by CM and follow up with the facility provider and plan of care. Patient/Family Education Needs: Review of discharge instructions, follow up plan, limitations, activity, discuss Ask Me Three
--- NOTE | 2021-12-02 11:09 | INDS_ITS ---
PT Notes Visit Reasons: Acute CHF,Atrial Fibrillation with RVR Physical Therapy Inpatient Discharge Summary Treatment Dates: 11/24/2021 - 11/29/21 Referring Doctor:? Jerson George MD PT Orders: PT CONSULT:? Limited ability Precautions: Fall. Standard. Per Dr. Hastings as of 11/14/2021: Reverse TSA protocol.? Should remove sling while in bed or resting.? Recommend sling when ambulatory or out of home.? Gentle passive range of motion to the shoulder.? Active range of motion elbow, wrist, and hand.? May use upper extremity gently for all essential ADLs including active range of motion within a limited arc with light weight bearing. This document serves as a summary of care. No PT services were provided on this date. Patient Profile/Admitting Diagnosis:? Patient is a 66-year-old male patient who presented to the ED on 11/23/2021 due to uncontrolled diarrhea, urinary symptoms, LE swelling, fast heart rate and palpitations.? Patient is diagnosed with displaced complex proximal humeral fracture and long head of triceps tendon incarceration sustained from a fall on 11/13/2021 and is S/P L rTSA? and R open biceps tenodesis on postoperative day 8.? He also has diagnoses of acute on chronic diastolic heart failure, AF, and COPD exacerbation. He participated in 4 PT sessions over the course of 6 days, with limitations in participation due to poorly managed pain and fatigue. He demonstrated continued limitations in mobility, and requires transition to SNF for ongoing rehab prior to returning to the community. Social History/Home Situation: Lives alone in an apartment with 17 steps to enter with a rail on one side.? Equipment Owned/DME: [facility] Subjective: none obtained Objective: ROM: Right Upper Extremity:? Shoulder Flexion WFL. Shoulder abduction WFL. Elbow flexion WFL. Wrist flexion WFL. Functional opening and closing of hand WFL. Left Upper Extremity:? Shoulder Flexion up to about 20 degrees. Shoulder abduction up to abut 20 degrees. Elbow flexion WFL. Wrist flexion WFL. Functional opening and closing of hand WFL. Right Lower Extremity: Hip flexion WFL. Hip abduction WFL. Knee flexion WFL. Ankle dorsiflexion WFL. Ankle plantarflexion WFL. Left Lower Extremity: Hip flexion WFL. Hip abduction WFL. Knee flexion WFL. Ankle dorsiflexion 10 degrees.? Ankle plantarflexion 20 degrees. Strength: Right Upper Extremity: Shoulder flexors 5/5. Shoulder abductors 5/5. Elbow flexors 5/5. Elbow extensors 5/5. [employer]iting [employer]ship strong. Left Upper Extremity: Shoulder flexors 2-/5. Shoulder abductors 2-/5. Elbow flexors 3/5. Elbow extensors 3/5. 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 Right Lower Extremity: Hip flexors 4/5. Hip abductors 4/5. Knee flexors 4/5. Knee extensors 4/5. Ankle dorsiflexors 5/5. Ankle plantarflexors 5/5. Left Lower Extremity: Hip flexors 4-/5. Hip abductors 4-/5. Knee flexors 4-/5. Knee extensors 4-/5. Ankle dorsiflexors 3-/5. Ankle plantarflexors 3-/5. Bed Mobility/Transfers: Supine to sit independent Sit to supine independent Sit to stand independent Stand to sit independent Bed to chair stand by assist Chair to bed stand by assist Gait: Up to 200 feet using no assistive device, sling on L UE.? Mild ataxia and mild path deviation, on 1 L of O2 per minute.? This varied significantly by day. Assessment: Patient is a 66-year-old male patient who presented to the ED on 11/23/2021 due to uncontrolled diarrhea, urinary symptoms, LE swelling, fast heart rate and palpitations.? Patient is diagnosed with displaced complex proximal humeral fracture and long head of triceps tendon incarceration sustained from a fall on 11/13/2021 and is S/P L rTSA? and R open biceps tenodesis. He participated in skilled PT intervention to address functional mobility and progress along post- op protocol, in addition to addressing his underlying balance impairments with h/o falls. He demonstrated continued mobility impairments, and requires further rehab prior to returning to the community. He was able to d/c to the [facility] on 11/29/21. Goals: Goals X1 week 2. Bed-Chair independent with no AD (not met) 3. Chair-Bed independent with no AD (not met) 4. Independent gait on level surface with use of no AD for at least 500 feet without report of pain nor dyspnea (not met) 5. Independent stair negotiation while holding onto 1 rails for at least 17 steps without report of pain nor dyspnea (not met) 6. Good static and dynamic standing balance/tolerance (not met) 7. Achieve increase in AROM in the L shoulder of at least 50% in order to increase efficiency of ADL performance (not met) 8. Decrease swelling in L UE to facilitate healing of surgical site and allow optimal use of L UE (not met) 9. Achieve dynamic standing balance of good to reduce fall risk (not met) Plan of Care/Treatment Plan: D/C to SNF for continued rehabilitation. TREATMENT CODE/TIME: NONE Thank you for the opportunity to participate in the care of this patient. Argentina Leonard PT, DPT [facility] [place], [place]
== END 2021-11-29 13:07 | disposition skilled nursing facility (03) | DRG 291 ==
LOC: ER 19:43 → MS 20:53
PROVIDERS: Internal Medicine; Nurse Practitioner Family; Admitting Provider Family Medicine; Emergency Provider Physician Assistant; PCP Family Medicine; Visit Provider Family Medicine
DX: I11.0 Hypertensive heart disease with heart failure (principal); I50.33 Acute on chronic diastolic (congestive) heart failure; I48.11 Longstanding persistent atrial fibrillation; E87.6 Hypokalemia; K70.30 Alcoholic cirrhosis of liver without ascites; Z66 Do not resuscitate; S42.202D Unspecified fracture of upper end of left humerus, subsequent encounter for fracture with routine healing; W19.XXXD Unspecified fall, subsequent encounter; Z91.128 Patient's intentional underdosing of medication regimen for other reason; F10.10 Alcohol abuse, uncomplicated; R29.6 Repeated falls; F32.A Depression, unspecified; Z96.612 Presence of left artificial shoulder joint; F17.210 Nicotine dependence, cigarettes, uncomplicated; I95.9 Hypotension, unspecified; K29.70 Gastritis, unspecified, without bleeding; K29.80 Duodenitis without bleeding; S42.031A Displaced fracture of lateral end of right clavicle, initial encounter for closed fracture; X58.XXXA Exposure to other specified factors, initial encounter; G89.29 Other chronic pain; Z79.891 Long term (current) use of opiate analgesic; F14.90 Cocaine use, unspecified, uncomplicated; Z60.2 Problems related to living alone; Z74.2 Need for assistance at home and no other household member able to render care; I08.1 Rheumatic disorders of both mitral and tricuspid valves
CPT/HCPCS: 36415; 80048; 80053; 84145; 86850; 86900; 86901; 87077; 87635; 93005; 93306; 94618; 94640; 96374; 96375; 96376; 97110; 97162; 97530; 99291; 71045; 73030; 81003; 81015; 83735; 83880; 84443; 84484; 85025; 85049; 85610; 85730; 87070; 87186; 87205; 93010; 99223; 99232; 99233; 99238; J1644; J1940; J3490; J7512; J7620

== ENCOUNTER 2021-12-01 18:42 | Outpatient (REF) | payer MEDICARE, MEDICAID, SELFPAY ==
[2021-12-01 19:18] LABS: Abs Immature Grans 0.15 10^3/uL (0.0-0.06); Absolute Basophil Count 0.03 10^3/uL (0.0-0.2); Absolute Eosinophil Count 0.01 10^3/uL (0.0-0.7); Absolute Lymphocyte Count 0.89 10^3/uL (1.2-3.4); Absolute Neutrophil Count 9.66 10^3/uL (1.2-6.7); Basophils % 0.3; Eosinophils % 0.1; HCT 42.8 % (40.0-50.0); Immature Grans % 1.4; Lymphocytes % 8.1; MCH 30.8 pg (27.0-33.0); MCHC 30.4 % (32.0-36.0); MCV 101 fL (80-95); MPV 10.5 fL (8.0-11.0); Monocytes % 1.8; Neutrophils % 88.3; Platelet Count 646 10^3/uL (130-400); RBC 4.22 10^6/uL (4.36-5.78); RDW 13.3 % (11.8-14.1); RDW-SD 49.6 fL; WBC 10.94 10^3/uL (4.4-10.8)
[2021-12-01 19:32] LABS: Iron 35 ug/dL (65-175); Total Iron Binding Capacity 315 ug/dL (250-450); Transferrin Sat 11 % (20-55)
[2021-12-01 19:56] LABS: ALT 51 U/L (16-63); AST 37 U/L (15-37); Albumin 3.3 g/dL (3.4-5.0); Alkaline Phosphatase 170 U/L (46-116); Anion Gap 7.6 mmol/L (3-11); BUN 23 mg/dL (7-18); Bilirubin, Total 0.5 mg/dL (0.2-1.0); CO2 28.4 mmol/L (21.0-32.0); CREATININE 1.8 mg/dL (0.70-1.30); Calcium 9.6 mg/dL (8.5-10.1); Chloride 100 mmol/L (98-107); Ferritin 153 ng/mL (26-388); Folate 9.1 ng/mL (8.6-20.0); Glucose 125 mg/dL (74-106); Potassium 4.9 mmol/L (3.5-5.1); Sodium 136 mmol/L (136-145); Vitamin B12 644 pg/mL (193-986)
[2021-12-01 20:25] LABS: Hemoglobin A1C 5.5 % (<5.7)
== END 2021-12-01 18:43 | disposition home or self-care (01) ==
LOC: LBN 18:42
PROVIDERS: PCP Family Medicine; Visit Provider Nurse Practitioner Gerontology
DX: Z02.89 Encounter for other administrative examinations (principal); R68.89 Other general symptoms and signs
CPT/HCPCS: 80053; 82306; 82607; 82728; 82746; 83036; 83540; 83550; 85025

== ENCOUNTER 2021-12-06 12:42 | Outpatient (REF) | payer SELFPAY ==
[2021-12-06 14:27] LABS: Anion Gap 10.3 mmol/L (3-11); BUN 26 mg/dL (7-18); CO2 28.7 mmol/L (21.0-32.0); Calcium 9.4 mg/dL (8.5-10.1); Chloride 97 mmol/L (98-107); Estimated GFR 36.13 (mL/min/1.73m2); Glucose 103 mg/dL (74-106); Potassium 4.7 mmol/L (3.5-5.1); Sodium 136 mmol/L (136-145)
[2021-12-08 06:08] LABS: Vitamin D 25 Total 75.6 ng/mL (30-100)
== END 2021-12-06 12:43 | disposition home or self-care (01) ==
LOC: LBN 12:42
PROVIDERS: PCP Family Medicine; Visit Provider Nurse Practitioner Gerontology
DX: I11.0 Hypertensive heart disease with heart failure (principal); I50.33 Acute on chronic diastolic (congestive) heart failure; J44.1 Chronic obstructive pulmonary disease with (acute) exacerbation; F10.10 Alcohol abuse, uncomplicated
CPT/HCPCS: 80048; 82306

== ENCOUNTER 2021-12-22 15:26 | Outpatient (REF) | payer MEDICARE, MEDICAID, SELFPAY ==
--- OUTSIDE RECORDS SUMMARY | 2021-12-22 15:34 | XMS_ITS | Encounter Summary ---
:1955 Author Organization [facility] Address One [facility] [place] [address] Care Team Providers Name Role Phone Sherri Guzman MD Primary Care Provider Encounter Details Date Type Department Care Team Description 08/14/2016 Hospital [place] [facility] [place] Closed fracture of [address] Abner MD distal end of left [place], [place] [facility] radius [place] [phone] matute, ORTHOPAEDIC unspecified fra cture SURGERY morphology, [place] [id number] Social History Tobacco Use Types Packs/Day Years Used Date Current Every Day Smoker Cigarettes 0.5 Smokeless Tobacco: Never Used Alcohol Use Standard Drinks/Week Comments Yes 10 (1 standard drink = 0.6 oz pure alcoh ol) social Alcohol Habits Answer Date Recorded How often do you have a drink containing alcohol? Not asked How many drinks containing alcohol do you have on a typical Not asked day when you are drinking? How often do you have six or more drinks on one occasion? No t asked Comment: social 12/23/2014 Sex Assigned at Date Recorded Not on file documented as of this encounter Medications at Time of Discharge Medication Sig Dispensed Refills Start Date End Date HYDROcodone-acetaminophen Take 1 tablet by 0 03/05 (NORCO) 7.5-325 mg Tablet mouth 2 times daily as needed. zolpidem (AMBIEN CR) 12.5 mg Take 1 tablet by 0 0 03/21/2016 Tablet, Multiphasic Release mouth nightly as needed for Insomnia. gabapentin (NEURONTIN) 800 mg Take 800 mg by 0 Tablet mouth 3 times daily. propranolol (INDERAL LA) 160 Take 160 mg by 0 mg Capsule,Sustained Action mouth 2 times 24 hr daily. nadolol (CORGARD) 40 mg Take 40 mg by 0 Tablet mouth 3 times daily. Reported on 06/12/2016 topiramate (TOPAMAX) 50 mg Take 50 mg by 0 Tablet mouth 2 times daily. amLODIPine (NORVASC) 10 mg Take 10 mg by 0 Tablet mouth daily. citalopram (CELEXA) 20 mg Take 20 mg by 0 Tablet mouth daily. hydroCHLOROthiazide Take 25 mg by 0 (HYDRODIURIL) 25 mg Tablet mouth daily. triamcinolone (KENALOG) 0.1 % Apply topically 2 0 Ointment times daily. pantoprazole (PROTONIX) 40 mg Take 1 tablet by 0 11/25/2015 Tablet, Delayed Release mouth daily. (E.C.) VITAMIN B-1 100 mg Tablet Take 1 tablet by 0 09/2015 mouth daily. beclomethasone (QVAR) 40 Inhale 2 puffs 1 Inhaler 3 015 mcg/actuation Aerosol into the lungs 2 times daily. cyclobenzaprine (FLEXERIL) 10 Take 1 tablet by 30 tablet 3 12/16/2014 mg Tablet mouth 3 times daily as needed for Muscle spasms. COMBIVENT RESPIMAT 20-100 Inhale 2 puffs 0 2014 mcg/actuation Mist into the lungs every 4 hours as needed. buPROPion (WELLBUTRIN SR) 150 Take 150 mg by 0 mg Tablet Sustained Release mouth 2 times daily. documented as of this encounter Plan of Treatment Not on filedocumented as of this encounter Procedures Procedure Name Priority Date/Time Associated Diagnosis Comme nts XR WRIST 3 VIEWS Routine 08/14/2016 2:09 PM Closed fracture of Results for this LEFT EDT distal end of left procedure are in radius with the results malunion, section. unspecified fracture morphology, subsequent encounter documented in this encounter Results XR Wrist Complete Min 3 views Left (Generic) (08/14/2016 2:09 PM EDT) Anatomical Region Laterality Modality Left Digital Radiography Specimen (Source) Anatomical Location Collection Method / Collectio n Time Received Time / Laterality Volume Impressions 08/14/2016 2:13 PM EDT Evidence for ongoing healing of the fracture of the distal left radius, with stabilization by hardware, intact Narrative 08/14/2016 2:13 PM EDT EXAMINATION: XR WRIST COMPLETE MIN 3 VIEWS LEFT (GENERIC) CLINICAL HISTORY: s/p distal radius oste otomy, question healing TECHNIQUE: 3 views of the left wrist COMPARISON: 06/12/2016 FINDINGS: The dorsally positioned plate and multip le transverse screws in the distal left radius appear stable and intact. There i s evidence for a healing fracture of the metadiaphyseal junction of the left radi us particularly as seen on the oblique view, concentrating on the mid and later al margin of the osteotomy site. Fracture line is no longer seen and incr easing trabecular sclerotic changes noted Procedure Note Andrés Dinero MD - 08/14/2016Format ting of this note might be different from the original. EXAMINATION: XR WRIST COMPLETE MIN 3 VIE WS LEFT (GENERIC) CLINICAL HISTORY: s/p distal radius oste otomy, question healing TECHNIQUE: 3 views of the left wrist COMPARISON: 06/12/2016 FINDINGS: The dorsally positioned plate and multip le transverse screws in the distal left radius appear stable and intact. There i s evidence for a healing fracture of the metadiaphyseal junction of the left radi us particularly as seen on the oblique view, concentrating on the mid and later al margin of the osteotomy site. Fracture line is no longer seen and incr easing trabecular sclerotic changes noted IMPRESSION Evidence for ongoing healing of the frac ture of the distal left radius, with stabilization by hardware, intact Jared Bolaños MD IMG DX ORDERABLES documented in this encounter Visit Diagnoses Diagnosis Closed fracture of distal end of left ra dius with malunion, unspecified fracture morphology, subsequent encounter documented in this encounter Care Teams Factory Clerk Relationship Specialty Start Date End Date Sherri Guzman MD PCP - General Family Medicine 12/21/15 [address] [place] [address] documented as of this encounter
--- OUTSIDE RECORDS SUMMARY | 2021-12-22 15:34 | XMS_ITS | Clinical Summary ---
:1955 Author Organization [facility] [place] [address] Care Team Providers Name Role Phone Sherri Guzman MD Primary Care Provider Allergies Active Allergy Reactions Severity Noted Date Comments Losartan Other (See Comments) 12/16/2014 Worseni ng headaches Medications Medication Sig Dispensed Refills Start Date End Date Status buPROPion (WELLBUTRIN SR) Take 150 mg by 0 Active 150 mg Tablet Sustained mouth 2 times Release daily. beclomethasone (QVAR) 40 Inhale 2 puffs 1 Inhaler 3 12/16/2014 Active mcg/actuation Aerosol into the lungs 2 times daily. cyclobenzaprine Take 1 tablet 30 tablet 3 12/16/2014 Active (FLEXERIL) 10 mg Tablet by mouth 3 times daily as needed for Muscle spasms. COMBIVENT RESPIMAT 20-100 Inhale 2 puffs 0 5 Active mcg/actuation Mist into the lungs every 4 hours as needed. gabapentin (NEURONTIN) Take 800 mg by 0 Active 800 mg Tablet mouth 3 times daily. propranolol (INDERAL LA) Take 160 mg by 0 Active 160 mg Capsule,Sustained mouth 2 times Action 24 hr daily. nadolol (CORGARD) 40 mg Take 40 mg by 0 Active Tablet mouth 3 times daily. Reported on 06/12/2016 topiramate (TOPAMAX) 50 Take 50 mg by 0 Active mg Tablet mouth 2 times daily. amLODIPine (NORVASC) 10 Take 10 mg by 0 Active mg Tablet mouth daily. citalopram (CELEXA) 20 mg Take 20 mg by 0 Active Tablet mouth daily. hydroCHLOROthiazide Take 25 mg by 0 Active (HYDRODIURIL) 25 mg mouth daily. Tablet triamcinolone (KENALOG) Apply topically 0 Active 0.1 % Ointment 2 times daily. pantoprazole (PROTONIX) Take 1 tablet 0 11/25/2015 Active 40 mg Tablet, Delayed by mouth daily. Release (E.C.) VITAMIN B-1 100 mg Tablet Take 1 tablet 0 11/10/2015 Active by mouth daily. HYDROcodone-acetaminophen Take 1 tablet 0 03/21/2016 Active (NORCO) 7.5-325 mg Tablet by mouth 2 times daily as needed. zolpidem (AMBIEN CR) 12.5 Take 1 tablet 0 03/21/2016 Active mg Tablet, Multiphasic by mouth Release nightly as needed for Insomnia. Active Problems Problem Noted Date S/P Right distal radius osteotomy with dorsal plating for malunion 11/29/2015 03/14/2016 (Dr. Bolaños) Overview: DOI 11/2014 Neck pain 12/23/2014 Mallet finger of right hand small finger 12/16/[address] 11/08/2014 Family History Medical History Relation Comments Cancer Mother Relation Status Comments Father Mother Social History Tobacco Use Types Packs/Day Years Used Date Current Every Day Smoker Cigarettes 0.5 Smokeless Tobacco: Never Used Tobacco Cessation: Ready to Quit: No; Co unseling Given: No Alcohol Use Standard Drinks/Week Comments Yes 10 [...] Assigned at Date Recorded Not on file Last Filed Vital Signs Vital Sign Reading Time Taken Comments Blood Pressure 161/104 08/14/2016 2:25 PM EDT Pulse 79 08/14/2016 2:25 PM EDT Temperature 36.2 ??C (97.2 ??F) 03/14/2016 10:57 AM EST Respiratory Rate 16 03/14/2016 12:55 PM EST Oxygen Saturation 93% 03/14/2016 12:55 PM EST Inhaled Oxygen Concentration - - Weight 90.7 kg (200 lb) 08/14/2016 2:25 PM EDT stated Height 177.8 cm (5' 10) 08/14/2016 2:25 PM EDT statrd Body Mass Index 28.7 08/14/2016 2:25 PM EDT Plan of Treatment Health Maintenance Due Date Last Done Comments Covid-19 Vaccine (#1) 1955 Pneumoccocal Vaccine: 65+ (1 - PCV) 05/15/1961 Hepatitis C Screening 05/15/1973 Lipid Screening 05/15/1973 Tdap adult 05/15/1974 Tetanus vaccine 05/15/1974 Colonoscopy 05/15/2000 Zoster vaccine (1 of 2) 05/15/2005 Advance Directive 05/15/2010 Influenza (Flu) vaccine (1 of 1 - Influenza standard 11/03/2021 series) Medical Devices Implanted Type Area Telecine Operator Device Shelf Model / Identifier Expiration Serial / Date Lot Allograft,Cacls,Crushed,5ml ([id number]) - [id number] IMPLANTS Left: [facility] - CAN5 / Implanted: Qty: 1 on 03/14/2016 by Jared Bolaños MD at [facility] H Wrist [id number] / Explanted Type Area Telecine Operator Device Shelf Model / Identifier Expiration Serial / Date Lot Screw,Bn,T7,2.7x20mm ([id number]) - [id number] IMPLANTS Left: DO NOT USE [id number] / Implanted: Qty: 1 Wrist [place] / Explanted: Qty: 1 on 03/14/2016 at [facility] Orthopae dics - [id number] Insurance Payer Benefit Plan / Subscriber ID Effective Dates Phone Addre ss Type Group [place] [id number] 2015-Prese [phone] [address] [place], [place] [id number] Guarantor Name Account Type Relation to Date of Phone Billing Address Patient Derrick Nolan Personal/Famil Self 1955 [address] (Home) [address] [place] [address] Advance Directives Latest Code Status on File Code Status Date Activated Date Inactivated Comments Full Code 03/14/2016 8:18 AM 03/14/2016 3:53 PM Does patient have capacity to make decision: Yes Full Code 11/06/2014 9:32 PM 11/19/2014 1:43 PM Does patient have capacity to make decision: Yes Full Code 11/06/2014 9:25 PM 11/06/2014 9:32 PM Does patient have capacity to make decision: Yes Care Teams Game Operator Relationship Specialty Start Date End Date Sherri Guzman MD PCP - General Family Medicine 12/21/15 [address] [place] [address]
--- OUTSIDE RECORDS SUMMARY | 2021-12-22 15:34 | XMS_ITS | Encounter Summary ---
:1955 Author Organization [facility] [place] [address] Care Team Providers Name Role Phone Sherri Guzman MD Primary Care Provider Encounter Details Date Type Department Care Team Description 01/20/2020 Hospital Encounter Laboratory [facility] [place] [address] Social History Tobacco Use Types Packs/Day Years [...] Name Priority Date/Time Associated Diagnosis Comme nts COVID-19 PCR Routine 01/20/2020 11:00 AM Results for this EST procedure are i n the results section . documented in this encounter Results COVID-19 PCR (01/20/2020 11:00 AM EST) [facility] Method Time Signature SARS-CoV-2 Not Detected Not Detected [facility] Comment: This result should be interpreted in com bination with the clinical observations, patient history and epidem iological information in making a final diagnosis. For testing of asymptomatic i ndividuals, assay performance characteristics and clinical utility hav e not been evaluated. Testing for SARS-CoV-2 (Severe acute respiratory syn drome coronavirus 2, formerly known as 2019 novel coronavirus or 2019-nCoV) to aid in the diagnosis of COVID-19 is performed using the [employer] RealTime SARS -CoV-2 Assay as authorized by the FDA Emergency Use Authorization (EUA). This EUA assay is intended for In-vitro Diagnostic (IVD) use with respiratory sp ecimens such as nasopharyngeal swabs collected from individuals during the ac the [place] phase of infection. This assay is performed based on the instructions for use provided by [employer] and additional guidance provided by CDC and FDA. Testing is performed in the [facility] Laboratory within the Department of Pathology and Laboratory Medicine at [facility], certified under the Clinical Laboratory Improvement Amendments of 1988 (CLIA), 42 U.S.C. 263a, to perform high complexi ty tests. Assay performance has been verified according to clinical laborator y regulatory requirements for use with specimens collected from individuals sheldon pected of COVID-19. Test results are provided above. A result of ? Not Detected? indicates that the viral RNA target is not present above the limit of detect ion, but does not preclude SARS-CoV-2 infection. False negative results may oc cur if a specimen is improperly collected, transported or handled; if am plification inhibitors are present; or if inadequate numbers of viral particles are present in the specimen. When a diagnostic test is negative, the possibi lity of a false negative result should be considered in the context of a patien t? s recent exposures and the presence of clinical signs and symptoms consisten t with COVID-19. A result of ? Detected? indicates that RNA from SARS-CoV-2 was d etected and the patient is infected. As required or requested by public health a uthorities, positive specimens may be sent for additional testing. Positive an d negative predictive values for this test are highly dependent on disease pre valence. A result of ? Invalid? indicates that neither the viral RNA tar gets nor the internal control target was detected. An invalid result suggests the presence of inhibitors. Recollection and re-testing is recommend ed in the case of an invalid result. CDC COVID-19 criteria for testing on hum an specimens and clinical management guidance information are available at th e CDC Coronavirus Disease 2019 (COVID-19) webpage under ? Information for Healthcare Professionals? (https://www.cdc.gov/coronavirus/2019-nc ov/hcp/index.html) Additional information about this and ot her EUA tests can be found in provider and patient fact sheets at the following FDA website: https://www.fda.gov/medical-devices/inqeynwjtqt-yvefngx-8177-waiqx-43-drsaargjb- nuc-uoaiorqjcdvalr-nbtrtei-devices/oegsz-uahwndmvhib-kdwn SARS-Cov-2 RNA Source Nasal [facility] Specimen Anatomical Collection Method Collection Time Receive d Time (Source) Location / / Volume Laterality Specimen from Other / Unknown 01/20/2020 11:00 020 1:17 nose (specimen) AM EST AM EST Resulting Agency Comment Spec In Lab Chino Fsih MD MICROBIOLOGY - GENERAL ORDER GRIS Performing Organization Address City/State/[place] [address] documented in this encounter Visit Diagnoses Not on filedocumented in this encounter Care Teams Floriculture Teacher Relationship Specialty Start Date End Date Sherri Guzman MD PCP - General Family Medicine 12/21/15 [address] [place] [address] documented as of this encounter
--- OUTSIDE RECORDS SUMMARY | 2021-12-22 15:34 | XMS_ITS | Encounter Summary ---
:1955 Author Organization [facility] Address [address] [facility] [place] [address] Care Team Providers Name Role Phone Sherri Guzman MD Primary Care Provider Reason for Visit Reason Comments Follow-up L dist rad osteotomy DOI 11/04 014 DOS 03/14/16 Encounter Details Date Type Department Care Team Description 06/12/2016 [place] [facility] [place], Cl[facility] end of left [address] [facility] radius with malunion, [place] [address] CENTER unspecified fracture [phone] ORTHOPAEDIC morphology, SURGERY subsequent encounter [facility] [place] Social History Tobacco Use Types Packs/Day Years [...] on file documented as of this encounter Last Filed Vital Signs Vital Sign Reading Time Taken Comments Blood Pressure 117/79 06/12/2016 3:04 PM EDT Pulse 53 06/12/2016 3:04 PM EDT Temperature - - Respiratory Rate - - Oxygen Saturation - - Inhaled Oxygen Concentration - - Weight 93 kg (205 lb) 06/12/2016 3:04 PM EDT verbal Height 177.8 cm (5' 10) 06/12/2016 3:04 PM EDT verbal Body Mass Index 29.41 06/12/2016 3:04 PM EDT documented in this encounter Progress Notes Mikhail Suh MD - 06/12/2016 3:10 PM EDT DATE OF SURGERY: 03/14/2016 - Left distal radius osteotomy, bone grafting and plating for distal radius fracture malunion. INTERVAL HISTORY: Mr. Nolan has been doing well since he was last seen in clinic. He says he has some residual achy pain in the left wrist that is similar to his preoperative pain but overall is much improved since preoperatively. He does occasionally get some shooting pain down into the left hand, but this is short lived. He reports no numbness or tingling and no issues with range of motion. PHYSICAL EXAM: Patient is in no apparent distress. He is breathing comfortably on room air. He has minimal achy pain with wrist range of motion. No discrete tenderness to palpation around the wrist. His incision is well healed. 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 He can retropulse his thumb, make an A-okay sign and spread his fingers. He has sensation intact to light touch in median, radial and ulnar nerve distributions in his hands. IMAGING: Three views of the left wrist obtained today were reviewed with Dr. Bolaños, which show continued interval healing at the osteotomy site and incorporation of the bone graft. ASSESSMENT AND PLAN: Mr. Nolan is a 61-year-old male who is now 3 months status post left distal radius osteotomy, plating and bone grafting for distal radius malunion. His pain is much improved since preoperatively, though he does have some residual aching pain. This could be caused by some arthritis caused by the fracture or some of his residual ulnar-sided pain. It is possible some of the pain could be due to plate irritation of the tendons, especially the occasional shooting pain down the hand. We discussed seeing him back in 2-3 months with repeat x-rays. We told him that if he is feeling perfect at that time he can cancel that appointment. We will let him be out of the splint as much as he wants at this point. We did state it might be better to wear the splint when he is doing any sort of heavier lifting, and we recommended that he not lift much more than 25 pounds while working. Patient was seen and examined with Dr. Bolaños. Rabia Bolaños MD - 06/12/2016 3:10 PM EDT I examined Derrick Nolan and I agree with Dr. Suh's note. RABIA BOLAÑOS MD documented in this encounter Plan of Treatment Not on filedocumented as of this encounter Results XR Wrist Complete Min [...] left radius, with stabilization by hardware, intact Rabia Bolaños MD IMG DX ORDERABLES documented in this encounter Visit Diagnoses Diagnosis Closed fracture of distal end of left ra dius with malunion, unspecified fracture morphology, subsequent encounter Closed fracture of distal end of left ra dius with malunion, unspecified fracture morphology, subsequent encounter documented in this encounter Care Teams Letter Sorting Machine Operator Relationship Specialty Start Date End Date Sherri Guzman MD PCP - General Family Medicine 12/21/15 [address] [place] [address] documented as of this encounter
--- OUTSIDE RECORDS SUMMARY | 2021-12-22 15:34 | XMS_ITS | Encounter Summary ---
:1955 Author Organization [facility] [place] [address] Care Team Providers Name Role Phone Sherri Guzman MD Primary Care Provider Reason for Visit Occupational Therapy (Routine) - Closed Specialty Diagnoses / Procedures Referred By Contact Refer red To Contact Occupational Therapy Diagnoses Closed fracture of distal end of left radius with malunion, unspecified fracture morphology, subsequent encounter Niecy Sosa, [facility] [address] [place] [address] [place] [address] Referral ID Status Reason Start Date Expiration Date Visits V isits Requested Authorized [id number] Closed Evaluate and 05/01/2016 05/01/2017 1 1 Treat Encounter Details Date Type Department Care Team Description 05/01/2016 Office Visit Occupational Therapy Franky Sagastume, OT Closed fracture of at [address] [facility] distal end of left [address] [place] radius with malunion, [place] [address] PHYSICAL MEDICINE unspecified fracture [phone] & REHABILITAT morphology, [place] [address] subsequent encounter Social History Tobacco Use Types Packs/Day Years [...] on file documented as of this encounter Progress Notes Sincere Chinedu Rivera - 05/01/2016 2:15 PM EST OCCUPATIONAL THERAPY ORTHOTIC EVALUATION Referral Source: Dr. Mami Lawrence MD Follow-up: 4 weeks Total Treatment time: 33 Minutes Timed Code Treatment Time: 33 minutes OCCUPATIONAL PROFILE: Derrick Nolan is a 60 y.o. year old Right hand dominant male who fell down his stairs while taking out his trash and sustained a left distal radius fracture requiring Left distal radius osteotomy with allograft bone graft. Derrick Nolan is referred to Occupational Therapy for evaluation and treatment. Patient presents today alone for fabrication of left custom wrist cock-up orthosis Date of onset of symptoms: Over 1 year ago Date of surgery: 03.14.2016 Pertinent History and/or Co-morbidities: 1. Closed fracture of distal end of left radius with malunion, unspecified fracture morphology, subsequent encounter Occupation: Disabled Avocational Activities: Reading and watching football OCCUPATIONAL PERFORMANCE DEFICITS: Derrick Nolan is limited with current performance due to pain, swelling, stiffness and limited mobility/range of motion causing functional deficits in his daily occupations. Global Mental Function: With gross screening of patient???s global mental functions, patient demonstrates orientation to person, place, time, and situation. Patient???s affect/behavior is appropriate and cooperative today. Patient Specific Functional Scale (PSFS) (unable to perform 0/10 - Able to perform without difficulty 10/10) Activity At Evaluation 1.) dressing 8 2.) bathing 10 3.) home mgmt 7 4.) driving 10 5.) meal prep 6 Average Score: 8.2 Pain: (Assessed using the visual analog scale) At Rest: 3/10 With Activity: 6/10 Treatment Today: Educated patient in etiology and biomechanics as related to patient's symptoms Fabricated custom left wrist cock-up orthosis Instructed in orthosis wear and care Range of Motion Exercises: FDS/FDP tendon glides, Digit flexion/extension, wrist flexion/extension, wrist pronation/supination, and composite wrist flexion/extension to reduce joint stiffness, edema, and improve mobility CLINICAL DECISION MAKING: Derrick Nolan has a well fitting orthosis post therapy. Derrick Nolan has pain, swelling, stiffness, and limited mobility in his left wrist causing functional deficits in his daily occupations. Derrick Nolan is able to independently verbalize and demonstrate the recommended home program following instructions today. Derrick Nolan has good potential for gains with therapy/home program use. Patient knows to call with any questions or concerns. Short Term Goals (to be met by end of the visit today): Date Goal Met: Today 1. Derrick Nolan will demonstrate independence with donning and doffing of his orthosis and verbalization of purpose. Goal Status: Meets. Today 2. Derrick Nolan will be independent with home exercises as evident with demonstration intherapy. Goal Status: Meets PLAN: Derrick Nolan plans to complete therapy closer to home but knows to call with any questions or concerns. (X) Derrick Nolan participated in the evaluation, collaborated on treatment goals, and agrees to the treatment plan . Leland Sagastume OT - 05/01/2016 2:15 PM EST OCCUPATIONAL THERAPY ORTHOTIC EVALUATION Referral Source: Dr. Mami Lawrence MD Follow-up: 4 weeks Total Treatment time: 33 Minutes Timed Code Treatment Time: 33 minutes OCCUPATIONAL PROFILE: Derrick Nolan is a 60 y.o. year old Right hand dominant male who fell down his stairs while taking out his trash and sustained a left distal radius fracture without correct healing requiring left distal radius osteotomy with allograft bone graft and dorsal plating. Derrick Nolan is referred to Occupational Therapy for evaluation and treatment. Patient presents today alone for fabrication of left custom wrist cock-up orthosis. Date of onset of symptoms: Over 1 year ago Date of surgery: 03.14.2016 Pertinent History and/or Co-morbidities: 1. Closed fracture of distal end of left radius with malunion, unspecified fracture morphology, subsequent encounter Occupation: Disabled Avocational Activities: Reading and watching football OCCUPATIONAL PERFORMANCE DEFICITS: Derrick Nolan is limited with current performance due to pain, swelling, stiffness and limited mobility/range of motion causing functional deficits in his daily occupations. Global Mental Function: With gross screening of patient???s global mental functions, patient demonstrates orientation to person, place, time, and situation. Patient???s affect/behavior is appropriate and cooperative today. Patient Specific Functional Scale (PSFS) (unable to perform 0/10 - Able to perform without difficulty 10/10) Activity At Evaluation 1.) dressing 8 2.) bathing 10 3.) home mgmt 7 4.) driving 10 5.) meal prep 6 Average Score: 8.2 Pain: (Assessed using the visual analog scale) At Rest: 3/10 With Activity: 6/10 Treatment Today: Educated patient in etiology and biomechanics as related to patient's symptoms Fabricated custom left wrist cock-up orthosis Instructed in orthosis wear and care Range of Motion Exercises: FDS/FDP tendon glides, Digit flexion/extension, wrist flexion/extension, wrist pronation/supination, and composite wrist flexion/extension to reduce joint stiffness, edema, and improve mobility. CLINICAL DECISION MAKING: Derrick Nolan has a well fitting orthosis post therapy. Derrick Nolan has pain, swelling, stiffness, and limited mobility in his left wrist causing functional deficits in his daily occupations. Derrick Nolan is able to independently verbalize and demonstrate the recommended home program following instructions today. Derrick Nolan has good potential for gains with therapy/home program use. Patient knows to call with any questions or concerns. Short Term Goals (to be met by end of the visit today): Date Goal Met: Today 1. Derrick Nolan will demonstrate independence with donning and doffing of his orthosis and verbalization of purpose. Goal Status: Meets. Today 2. Derrick Nolan will be independent with home exercises as evident with demonstration intherapy. Goal Status: Meets PLAN: Derrick Nolan plans to complete therapy closer to home but knows to call with any questions or concerns. I was present throughout today's treatment of the patient with my student participating. Following treatment I've reviewed, discussed and provided feedback to my occupational therapy student in which updates to the note were made. I concur with the note as written and recommend continuing treatment per Plan of Care as written. (X) Derrick Nolan participated in the evaluation, collaborated on treatment goals, and agrees to the treatment plan. documented in this encounter Plan of Treatment Scheduled Referrals Name Type Priority Associated Diagnoses Order S chedule Referral to Outpatient Referral Routine Closed fracture of Or dered: Occupational Therapy distal end of left 0 05/01/2016 radius with malunion, unspecified fracture morphology, subsequent encounter documented as of this encounter Visit Diagnoses Diagnosis Closed fracture of distal end of left ra dius with malunion, unspecified fracture morphology, subsequent encounter documented in this encounter Care Teams Employment Program Representative Relationship Specialty Start Date End Date Sherri Guzman MD PCP - General Family Medicine 12/21/15 [address] [place] [address] documented as of this encounter
--- OUTSIDE RECORDS SUMMARY | 2021-12-22 15:34 | XMS_ITS | Encounter Summary ---
:1955 Author Organization [facility] [place] [address] Care Team Providers Name Role Phone Sherri Guzman MD Primary Care Provider Reason for Visit Reason Onset Date Comments Appointment 05/29/2016 Encounter Details Date Type Department Care Team Description 05/29/2016 Telephone Orthopaedics at [facility] Jared Bolaños MD Appointment [facility] [place] [address] ORTHOPAEDIC SURGERY [phone] [place], [place] [address] (Wo rk) Social History Tobacco Use Types Packs/Day Years [...] on file documented as of this encounter Miscellaneous Notes Telephone Encounter - Haleigh Rodriguez - 05/31/2016 2:25 PM EDT Patient scheduled Telephone Encounter - Noemi Abbott - 05/29/2016 10:08 AM EDT LM # 1 to schedule follow up with Dr. Bolaños for next available for XR L DIST RAD OSTEOTOMY DOS 03/14/16 DOI 11/2013. documented in this encounter Plan of Treatment Not on filedocumented as of this encounter Visit Diagnoses Not on filedocumented in this encounter Care Teams Controller Repairer And Tester Relationship Specialty Start Date End Date Sherri Guzman MD PCP - General Family Medicine 12/21/15 [address] [place] [address] documented as of this encounter
--- OUTSIDE RECORDS SUMMARY | 2021-12-22 15:34 | XMS_ITS | Encounter Summary ---
:1955 Author Organization [facility] [place] [address] Care Team Providers Name Role Phone Sherri Guzman MD Primary Care Provider Encounter Details Date Type Department Care Team Description 06/12/2016 Hospital Encounter XRay at [facility] Mami Jared Closed fracture of [address] Abner MD distal end of left [place], [place] [facility] radius [place] [phone] matute, ORTHOPAEDIC unspecified fra cture SURGERY morphology, [place], [place] [phone] Social History Tobacco Use Types Packs/Day Years [...] as needed for Insomnia. gabapentin (NEURONTIN) 800 Take 800 mg by 0 mg Tablet mouth 3 times daily. propranolol [...] mg Tablet mouth daily. triamcinolone (KENALOG) 0.1 Apply topically 2 0 % Ointment times daily. pantoprazole (PROTONIX) 40 Take 1 tablet by 0 mg Tablet, Delayed Release mouth daily. (E.C.) VITAMIN B-1 100 mg Tablet Take 1 tablet by 0 09/2015 mouth daily. beclomethasone (QVAR) 40 Inhale 2 puffs 1 Inhaler 3 015 mcg/actuation Aerosol into the lungs 2 times daily. cyclobenzaprine (FLEXERIL) Take 1 tablet by 30 tablet 3 10 mg Tablet mouth 3 times daily as needed for Muscle spasms. COMBIVENT RESPIMAT 20-100 Inhale 2 puffs 0 2014 mcg/actuation Mist into the lungs every 4 hours as needed. buPROPion (WELLBUTRIN SR) Take 150 mg by 0 150 mg Tablet Sustained mouth 2 times Release daily. lidocaine (XYLOCAINE) 5 % APPLY TO AFFECTED 0 08/14/2016 Ointment AREA FOUR TIMES DAILY documented as of this encounter Plan of Treatment Not on filedocumented as of this encounter Procedures Procedure Name Priority Date/Time Associated Diagnosis Comme nts XR WRIST 3 VIEWS Routine 06/12/2016 2:13 PM Closed fracture of Results for this LEFT EDT distal end of left procedure are in radius with the results malunion, section. unspecified fracture morphology, subsequent encounter documented in this encounter Results XR Wrist Complete Min 3 views Left (Generic) (06/12/2016 2:13 PM EDT) Anatomical Region Laterality Modality Left Digital Radiography Specimen (Source) Anatomical Location Collection Method / Collectio n Time Received Time / Laterality Volume Impressions 06/12/2016 4:55 PM EDT Progressive interval healing of distal radial osteotomy and bone grafting site, with unchanged alignment and no evidence of fixation hardware complication. Narrative 06/12/2016 4:55 PM EDT EXAMINATION: XR WRIST COMPLETE MIN 3 VIEWS LEFT (GENERIC) CLINICAL HISTORY: Left distal radius ost eotomy on 03/14/2016; assess healing TECHNIQUE: Frontal, lateral, and oblique left wrist radiographs were obtained. COMPARISON: Left wrist radiographs rangi ng from 11/08/2013 through 05/01/2016 FINDINGS: There has been prior transverse osteotom y through the left radial metaphysis with bone grafting and placement of a do rsal fixation [id number] construct that appears intact without evidence of loosening. When compared with 05/01/2016, the osteotomy line is less distinct, com patible with progressive interval healing. Alignment is unchanged. Procedure Note Hilda Encinas MD - 06/12/2016Formatting o f this note might be different from the original. EXAMINATION: XR WRIST COMPLETE MIN 3 VIE WS LEFT (GENERIC) CLINICAL HISTORY: Left distal radius ost eotomy on 03/14/2016; assess healing TECHNIQUE: Frontal, lateral, and oblique left wrist radiographs were obtained. COMPARISON: Left wrist radiographs rangi ng from 11/08/2013 through 05/01/2016 FINDINGS: There has been prior transverse osteotom y through the left radial metaphysis with bone grafting and placement of a do rsal fixation [id number] construct that appears intact without evidence of loosening. When compared with 05/01/2016, the osteotomy line is less distinct, com patible with progressive interval healing. Alignment is unchanged. IMPRESSION Progressive interval healing of distal r adial osteotomy and bone grafting site, with unchanged alignment and no evidence of fixation hardware complication. Jared Bolaños MD IMG DX ORDERABLES documented in this encounter Visit Diagnoses Diagnosis Closed fracture of distal end of left ra dius with malunion, unspecified fracture morphology, subsequent encounter documented in this encounter Care Teams Application Technical Designer Relationship Specialty Start Date End Date Sherri Guzman MD PCP - General Family Medicine 12/21/15 [address] [place] [address] documented as of this encounter
--- OUTSIDE RECORDS SUMMARY | 2021-12-22 15:34 | XMS_ITS | Encounter Summary ---
:1955 Author Organization [facility] Address [facility] [place] [address] Care Team Providers Name Role Phone Sherri Guzman MD Primary Care Provider Encounter Details Date Type Department Care Team Description 05/01/2016 Hospital Encounter XRay at [facility] Mami Jared Closed fracture of [address] Abner MD distal end of left [place], [place] [facility] [place] [phone] matute, ORTHOPAEDIC unspecified fra cture SURGERY morphology, [place] [id number] Social History Tobacco Use Types Packs/Day Years [...] Comme nts XR WRIST 3 VIEWS Routine 05/01/2016 12:47 PM Closed fracture o f Results for this LEFT EST distal end of left procedure are in radius with the results malunion, section. unspecified fracture morphology, subsequent encounter documented in this encounter Results XR Wrist Complete Min 3 views Left (Generic) (05/01/2016 12:47 PM EST) Anatomical Region Laterality Modality Left Digital Radiography Specimen (Source) Anatomical Location Collection Method / Collectio n Time Received Time / Laterality Volume Impressions 05/01/2016 4:22 PM EST Interval healing of left distal radius osteotomy and bone grafting. No change in alignment. I have personally reviewed the image(s) and the residents interpretation and agree with the findings, Rachel caraballo 05/01/2016 4:22 PM Narrative 05/01/2016 4:22 PM EST EXAMINATION: XR WRIST COMPLETE MIN 3 VIEWS LEFT (GENERIC) CLINICAL HISTORY: s/p ORIF L distal radi us with bone grafting for malunion; assessment of interval change/healing TECHNIQUE: 3 views of the left wrist COMPARISON: Left wrist radiographs 2016 and March 25, 2015 FINDINGS: Patient is status post screw and dorsal plate fixation, osteotomy and bone grafting of the distal radius for maluni on. No interval change in the position or alignment of the hardware. No peripro sthetic fracture. Osteotomy line remains visible though less distinct with previo us callus formation. Diffuse decreased osseous mineralization consistent with d isuse. Procedure Note Rachel Borrego MD - 05/01/2016Formatt ing of this note might be different from the original. EXAMINATION: XR WRIST COMPLETE MIN 3 VIE WS LEFT (GENERIC) CLINICAL HISTORY: s/p ORIF L distal radi us with bone grafting for malunion; assessment of interval change/healing TECHNIQUE: 3 views of the left wrist COMPARISON: Left wrist radiographs 2016 and March 25, 2015 FINDINGS: Patient is status post screw and dorsal plate fixation, osteotomy and bone grafting of the distal radius for maluni on. No interval change in the position or alignment of the hardware. No peripro sthetic fracture. Osteotomy line remains visible though less distinct with previo us callus formation. Diffuse decreased osseous mineralization consistent with d isuse. IMPRESSION Interval healing of left distal radius o steotomy and bone grafting. No change in alignment. I have personally reviewed the image(s) and the residents interpretation and agree with the findings, Rachel caraballo 05/01/2016 4:22 PM Jared Bolaños MD IMG DX ORDERABLES documented in this encounter Visit Diagnoses Diagnosis Closed fracture of distal end of left ra dius with malunion, unspecified fracture morphology, subsequent encounter documented in this encounter Care Teams Cobol Developer Relationship Specialty Start Date End Date Sherri Guzman MD PCP - General Family Medicine 12/21/15 [address] [place] [address] documented as of this encounter
--- OUTSIDE RECORDS SUMMARY | 2021-12-22 15:34 | XMS_ITS | Encounter Summary ---
:1955 Author Organization [facility] Address [address] [place] [address] Care Team Providers Name Role Phone Sherri Guzman MD Primary Care Provider Reason for Visit Reason Comments Follow Up Surgery L dist rad osteotomy DOS 03/05 DOI 11/2013 Encounter Details Date Type Department Care Team Description 08/14/2016 Office Visit Orthopaedics at [facility] Jared Bolaños, Closed fracture of [facility] distal end of left [address] [facility] radius with malunion, [place] [address] CENTER unspecified fracture [phone] ORTHOPAEDIC morphology, SURGERY subsequent encounter [place] [id number] Social History Tobacco Use Types Packs/Day Years [...] Pulse 79 08/14/2016 2:25 PM EDT Temperature - - Respiratory Rate - - Oxygen Saturation - - Inhaled Oxygen Concentration - - Weight 90.7 kg (200 lb) 08/14/2016 2:25 PM EDT stated Height 177.8 cm (5' 10) 08/14/2016 2:25 PM EDT statrd Body Mass Index 28.7 08/14/2016 2:25 PM EDT documented in this encounter Progress Notes Tarah Moore PA - 08/14/2016 2:45 PM EDT Mr. Nolan comes in today for followup left distal radius osteotomy with allograft bone graft 03/14/16, Dr. Bolaños. He is doing well. He does not have much pain in the wrist. No numbness or tingling in the fingers. He does have an area of dry, scaly skin adjacent to the incision. He is working on his range of motion and strength with exercises on his own at home. He still wears his wrist splint if he is doing any heavy activities. Examination today of his left hand and wrist shows no significant swelling. No erythema or warmth. The incision has healed nicely. Adjacent to the incision, there is an area of dry skin, almost psoriatic in appearance. He has full range of motion of his fingers. He has minimal stiffness with extension of the wrist and mild stiffness with flexion. X-rays taken today show that the osteotomy site has healed nicely. Hardware is intact. X-rays were independently reviewed by me in the office. IMPRESSION: Left distal radius osteotomy with allograft bone graft. TREATMENT: Patient can increase his activities as he feels comfortable. He can wean himself off his wrist brace. He was advised of x-ray findings. We reviewed these in the office that this has healed at this point. We left followup on an as needed basis. Regarding the area of dry skin, he has a lotion at home that he uses during the winter. I have asked him to try that on this area. If that does not help, he may need to see his PCP or Dermatology. documented in this encounter Plan of Treatment Not on filedocumented as of this encounter Visit Diagnoses Diagnosis Closed fracture of distal end of left ra dius with malunion, unspecified fracture morphology, subsequent encounter documented in this encounter Care Teams Supervisor Print Line Relationship Specialty Start Date End Date Sherri Guzman MD PCP - General Family Medicine 12/21/15 [address] [place] [address] documented as of this encounter
--- OUTSIDE RECORDS SUMMARY | 2021-12-22 15:34 | XMS_ITS | Encounter Summary ---
:1955 Author Organization [facility] [place] [address] Care Team Providers Name Role Phone Sherri Guzman MD Primary Care Provider Encounter Details Date Type Department Care Team Description 09/19/2019 Telephone Orthopaedics at [facility] [place] [address] Social History Tobacco Use Types Packs/Day [...] this encounter Miscellaneous Notes Telephone Encounter - Christine Gonzalez W - 09/19/2019 1:58 PM EDT Called out to Mr. Nolan in regards to an email from Dr. Preston regarding Mr. Nolan's 11 day old thumb laceration with FPL and nerve involvement that he would like Dr. Bolaños to operate on. I had a lengthy conversation with Mr. Nolan who discussed his confusion and frustration regarding the timing and scheduling of surgery in regards to his eye surgery that he has scheduled. He ideally would like to have the hand fixed on Sunday so that he can proceed with his procedure forhis eyes on Sunday. I informed him that we do not operate in clinic and that Dr. Bolaños seems to be in the OR on Sunday and Sunday of next week - he understands this. Mr. Nolan is still working on obtaining transportation to see Dr. Bolaños. I offered him an 11am appointment as well as a 2pm and a 3pm. At this time we have scheduled him at the 2pm slot and he will call back once he has further information regarding transportation. documented in this encounter Plan of Treatment Not on filedocumented as of this encounter Visit Diagnoses Not on filedocumented in this encounter Care Teams Air Cargo Specialist Relationship Specialty Start Date End Date Sherri Guzman MD PCP - General Family Medicine 12/21/15 [address] [place] [address] documented as of this encounter
--- OUTSIDE RECORDS SUMMARY | 2021-12-22 15:34 | XMS_ITS | Encounter Summary ---
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 with malunion, unspecified fracture morphology, subsequent encounter Niecy Sosa, [facility] [address] [place] [address] [place] [address] Referral ID Status Reason Start Date Expiration Date Visits V isits Requested Authorized [id number] Closed Evaluate and 05/01/2016 05/01/2017 1 1 Treat Reason for Visit Reason Comments Follow-up L dist rad osteotomy DOI 11/04 014 DOS 03/14/16 Encounter Details Date Type Department Care Team Description 05/01/2016 Office Visit Orthopaedics at [facility] Jared Bolaños, Closed fracture of [facility] distal end of left Drive [facility] radius with malunion, [place] [address] CENTER unspecified fracture [phone] ORTHOPAEDIC morphology, SURGERY subsequent encounter [place], [place] [address] Social History Tobacco Use Types Packs/Day Years [...] Sign Reading Time Taken Comments Blood Pressure 132/83 05/01/2016 1:51 PM EST Pulse 55 05/01/2016 1:51 PM EST Temperature - - Respiratory Rate - - Oxygen Saturation - - Inhaled Oxygen Concentration - - Weight 91.2 kg (201 lb) 05/01/2016 1:51 PM EST verbal Height 177.8 cm (5' 10) 05/01/2016 1:51 PM EST verbal Body Mass Index 28.84 05/01/2016 1:51 PM EST documented in this encounter Progress Notes Nadiya Holly - 05/01/2016 2:05 PM EST Derrick Nolan presents to the clinic for a cast off per Dr. Bolaños. The short arm cast was intact upon arrival. The patient was explained how the cast saw works and the cast was removed. The patient tolerated this procedure well. The patient's skin was intact.The patient was then sent to x-ray. Niecy Sosa PA - 05/01/2016 2:05 PM EST PATIENT NAME: Derrick Nolan AGE: 60 y.o. MR#: [id number] DATE OF VISIT: 05/01/2016 DATE OF SURGERY: 03/14/2016 SURGERY DESCRIPTION: Left distal radius osteotomy with allograft bone graft. SURGEON: Dr. Bolaños CHIEF COMPLAINT: 7 weeks S/P above procedure HISTORY OF PRESENT ILLNESS: Mr. Nolan is a 60 y.o. male who presents 7 weeks s/p the above procedures for office follow up. He has been immobilized in a short arm cast. His cast was removed for x-rays today. He still has some pain in the wrist with certain activities, but overall was quite comfortable with his wrist immobilized. He still feels that his wrist is weak when he attempts any lifting with his left arm. Mr. Nolan denies any fever/chills or other constitutional signs of infection. He denies any numbness or tingling distal to the surgical procedure. The patient has not noticed any abnormal drainage from his incision or increased redness or discomfort. PHYSICAL EXAMINATION: Mr. Nolan is a 60 y.o. male who is alert and oriented. He appears in no acute discomfort and is resting comfortably in the exam room. Inspection: Well-healed surgical incision. No obvious wrist deformity. No evidence of infection. ROM/Strength: He is able to perform active finger range of motion without restriction. He is able toperform limited active wrist flexion and extension, but has pain at end range. He is not particularly tender over his dorsal plate. He does not have any palmar tenderness over his distal radius. Neurovascular: Normal motor function of the radial, median, and ulnar nerves. Normal sensation alongradial, median, and ulnar nerve distributions. Good hand perfusion. Imaging: X-rays of the left wrist show no complications following distal radius osteotomy with dorsal plating. There has been ongoing healing at the osteotomy site, but the osteotomy remains visible primarily on the radial and palmar aspects of the distal radius. ASSESSMENT: 7 weeks s/p above procedure PLAN: I reviewed the x-rays with the patient today. He will see hand therapy to transition to a removable splint. He can remove the splint for showering and gentle range of motion exercises. His osteotomy is not healed enough to resume full weightbearing activities, however. He should wear his splint at all times during normal activity for protection. All of the patients questions and concerns were answered at this visit. The patient understands to contact me if they have any other questions or concerns. The patient is scheduled for follow up in approximately 6 weeks with repeat x-rays. Once his osteotomy is fully healed we will allow him to discontinue his splint and increase his weightbearing activities. The above documentation was completed using [employer] voice recognition software. documented in this encounter Plan of Treatment Scheduled Referrals Name Type Priority Associated Diagnoses Order S chedule Referral to Outpatient Referral Routine Closed fracture of Or dered: Occupational Therapy distal end of left 0 05/01/2016 radius with malunion, unspecified fracture morphology, subsequent encounter documented as of this encounter Results XR Wrist [...] and placement of a do rsal fixation [id number] construct that appears intact without evidence of [...] and placement of a do rsal fixation [id number] construct that appears intact without evidence of [...] encounter documented in this encounter Care Teams Process Safety Engineer Relationship Specialty Start Date End Date Sherri Guzman MD PCP - General Family Medicine 12/21/15 [address] [place] [address] documented as of this encounter
--- OUTSIDE RECORDS SUMMARY | 2021-12-22 15:35 | XMS_ITS | Encounter Summary ---
:1955 Author Organization [facility] Address [facility] [place] [address] Care Team Providers Name Role Phone Unavailable Primary Care Provider Unavailable Reason for Visit Reason Comments Results had CT prior Encounter Details Date Type Department Care Team Description 12/23/2014 Office Visit Neurosurgery at [facility] Meena Blake, Abnormal CT scan, [facility] [place] [address] [phone] NE[place]OSURGERY [place] [address] Social History Tobacco Use Types Packs/Day Years [...] Sign Reading Time Taken Comments Blood Pressure 180/95 12/23/2014 9:13 AM EDT Pulse 78 12/23/2014 9:13 AM EDT Temperature - - Respiratory Rate - - Oxygen Saturation - - Inhaled Oxygen Concentration - - Weight 88.5 kg (195 lb) 12/23/2014 8:26 AM EDT Height 177.8 cm (5' 10) 12/23/2014 8:26 AM EDT Body Mass Index 27.98 12/23/2014 8:26 AM EDT documented in this encounter Progress Notes Meena Sanchez APRN - 12/24/2014 3:10 PM EDT Case reviewed with Dr. Pierre. Recommendation is to pursue MRI w/wo contrast at some point to determine if there is an associated vascular malformation. There is not urgency in this recommendation, however, and patient is extremely claustrophobic, which will require MRI with IV sedation. He will need an H&P performed by his PCP prior to IV sedation, so we will follow-up with him by phone in 2 months once he has established care with a PCP locally. Meena Sanchez APRN - 12/23/2014 9:14 AM EDT HPI Patient admitted 11/06/14 2 days following fall downstairs. Multiple injuries identified and patient admitted to Trauma Service. Cervical spine injury managed by Orthopedics in [facility]. Neurosurgeryconsulted for R parietal density concerning for hemorrhage versus congenital venous anomaly. He returns today for scheduled head CT. Patient attempted MRI as an inpatient to further evaluate hemorrhage versus anomaly, but was unable to tolerate due to mental status change and claustrophobia. The limited exam conveyed that there wereno flow voids concerning for AVM, no ischemia/infarct, and no overt evidence of hemorrhage. He returns today with scheduled head CT. He feels well in terms of his head injury. He is having what he describes as band-like headaches, which begin in his neck and radiate up and forward. He primarily reports pain in his posterior neck and low back (lumbar pain is chronic). He denies history of seizure or left hemibody weakness. His blood pressure was also quite elevated today, which he reports has been a chronic problem for him. He previously saw a PCP in [place], but is unable to get there now due to transportation difficulty. He was given the PCP line information at his visit with Orthopedics 12/09/14 but has not yet called to establish care. He is currently without opioid medication and is asking about having pain medicaiton refilled. On exam, he appears well and mildly fatigued. He is wearing a hard cervical collar. Pupils are equaland reactive, facial movement symmetric, tongue midline, shoulder shrug equal, shaker out symmetric, no pronator drift, UE/LE strength 5/5. Gait narrow-based and balanced. Head CT from today shows unchanged R lateral parietal density. No new hemorrhage. A/P: Patient with abnormal head CT following fall downstairs with findingins concerning for hemorrhage versus DVA. 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 We discussed the differential diagnoses in detail, including that DVA canbe accompanied by an additional malformation, cavernoma, which would potentially merit additional clinical follow-up. We also discussed the limitation of CT for full evaluation of this, however, and that MRI would best evaluate what this finding means. He is extremely claustrophobic, so if MRI is indicated, then it would require IV sedation. I will review his case with Dr. Pierre to determine if MRI is indicated in his case. If MRI is not indicated, we will follow prn. I reinforced the need to establish care with a PCP, given his HTN, chronic back pain, and need for ongiong pain management. I asked him to consult with his provider in the [facility] Center re: recommendations for management of his neck pain, and that is the collar is to be removed, physical therapy may behelpful for mediating effects of cervicogenic headahces, which seem likely in his case. documented in this encounter Plan of Treatment Not on filedocumented as of this encounter Visit Diagnoses Diagnosis Abnormal CT scan, head Nonspecific (abnormal) findings on radio logical and other examination of skull and head documented in this encounter
--- OUTSIDE RECORDS SUMMARY | 2021-12-22 15:35 | XMS_ITS | Encounter Summary ---
:1955 Author Organization [facility] [place] [address] Care Team Providers Name Role Phone Unavailable Primary Care Provider Unavailable Reason for Visit Diagnostic X-Ray (Routine) - Closed Specialty Diagnoses / Procedures Referred By Contact Refer red To Contact Radiology Diagnoses Ulnar fracture, unspecified laterality, closed, initial encounter Meredith Jaimes APRN [facility] Rad Xray Procedures XR wrist [address] view [address] [place] [address] [place] [address] Referral ID Status Reason Start Date Expiration Date Visits Requ ested Visits Authorized [id number] Closed 12/09/2014 12/09/2015 3 3 Encounter Details Date Type Department Care Team Description 12/16/2014 Hospital Encounter XRay at [facility] Ananda Pena Ulnar fracture, [address] [place] [address] Dr Pedrito MD unspecified [place], [place] [facility] [place], [place], [address] CENTER initial encounter [phone] [place] [address] Social History Tobacco Use Types Packs/Day Years Used Date Current Every Day Smoker Cigarettes 0.5 Smokeless Tobacco: Never Used Comments: started smoking at 14, increas ed smoking at 18 Alcohol Use Standard Drinks/Week Comments Yes 10 (1 standard drink = 0.6 oz pure some weeks none, some weeks up to alcohol) 10 Sex Assigned at Date Recorded Not on file documented as of this encounter Medications at Time of Discharge Medication Sig Dispensed Refills Start Date End Date COMBIVENT RESPIMAT Inhale 2 puffs into 0 08/21/19 15 20-100 mcg/actuation the lungs every 4 Mist hours as needed. buPROPion (WELLBUTRIN Take 150 mg by mouth 2 0 SR) 150 mg Tablet times daily. Sustained Release oxyCODONE (ROXICODONE) Take 1-3 tablets by 20 tablet 0 12/0311/29/2015 5 mg Tablet mouth every 4 hours as needed for Pain (give 5mg for pain 0-4; give 10mg for pain 5-7; give 15mg for pain 8-10). traMADol (ULTRAM) 50 mg Take 50 mg by mouth 0 11/29/2015 Tablet every 6 hours as needed for Pain. aspirin 81 mg Tablet, Take 81 mg by mouth 0 12/0911/29/2015 Delayed Release (E.C.) daily. ipratropium-albuterol Take 0.5 mg by 1 vial 4 11/19/2014 11/29/2015 (DUONEB) 0.5 mg-3 nebulization every 4 mg(2.5 mg base)/3 mL hours. Solution for Nebulization propranolol (INDERAL) Take 1 tablet by mouth 0 11/29/2015 80 mg Tablet 4 times daily. documented as of this encounter Plan of Treatment Not on filedocumented as of this encounter Procedures Procedure Name Priority Date/Time Associated Diagnosis Comme nts XR WRIST 3 VIEWS Routine 12/16/2014 2:03 PM Ulnar fracture, Re sults for this LEFT EDT unspecified procedure are i n laterality, closed, the resu lts initial encounter section. documented in this encounter Results XR wrist complete minimum 3 views Left (GENERIC) (12/16/2014 2:03 PM EDT) Anatomical Region Laterality Modality Left Digital Radiography Specimen (Source) Anatomical Location Collection Method / Collectio n Time Received Time / Laterality Volume Impressions 12/16/2014 2:45 PM EDT IMPRESSION: Chronic distal radial and ulnar styloid fractures. Intra-articular fracture of the fifth DI P joint remains evident though distance to the fracture fragment has decreased. Narrative 12/16/2014 2:45 PM EDT EXAMINATION: XR HAND DIAGNOSTIC MINIMUM 3 VIEWS/LEFT, XR WRIST COMPLETE MINIMUM 3 VIEWS LEFT CLINICAL HISTORY: s/p 5th digit DIP fx, f/u to be associated with ortho f/u appointment TECHNIQUE: Oblique, PA and lateral views of the left hand and wrist COMPARISON: Limited view of the left wri st acquired as part of a study of the finger November 16, 2014 FINDINGS: Age unknown transverse distal radius scl erosis and irregularity consistent with remote fracture. Stable remodeling of th e ulnar styloid also suggestive of chronic fracture. Normal alignment maintained about the ca rpus. Subtle sclerosis at site of the previous intra-articular fifth finger DIP joint. Fracture line remains identifiable thoug h the distance to the fragment has decreased. Procedure Note Perla Morataya MD - 12/16/2014 EXAMINATION: XR HAND DIAGNOSTIC MINIMUM 3 VIEWS/LEFT, XR WRIST COMPLETE MINIMUM 3 VIEWS LEFT CLINICAL HISTORY: s/p 5th digit DIP fx, f/u to be associated with ortho f/u appointment TECHNIQUE: Oblique, PA and lateral views of the left hand and wrist COMPARISON: Limited view of the left wri st acquired as part of a study of the finger November 16, 2014 FINDINGS: Age unknown transverse distal radius scl erosis and irregularity consistent with remote fracture. Stable remodeling of th e ulnar styloid also suggestive of chronic fracture. Normal alignment maintained about the ca rpus. Subtle sclerosis at site of the previous intra-articular fifth finger DIP joint. Fracture line remains identifiable thoug h the distance to the fragment has decreased. 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 Intra-articular fracture of the fifth DI P joint remains evident though distance to the fracture fragment has decreased. Ananda Pena MD IMG DX ORDERABLES documented in this encounter Visit Diagnoses Diagnosis Ulnar fracture, unspecified laterality, closed, initial encounter documented in this encounter
--- OUTSIDE RECORDS SUMMARY | 2021-12-22 15:35 | XMS_ITS | Encounter Summary ---
:1955 Author Organization [facility] [place] [address] Care Team Providers Name Role Phone Sherri Guzman MD Primary Care Provider Reason for Visit Reason Onset Date Comments Pre Procedure Call 01/18/2016 Encounter Details Date Type Department Care Team Description 01/18/2016 Telephone Orthopaedics at [facility] Jared Bolaños MD Pre Procedure Call [facility] [place] [address] ORTHOPAEDIC SURG [place], [place] [address] (Wo rk) Social History Tobacco [...] this encounter Miscellaneous Notes Telephone Encounter - Jarek Bolaños RN - 01/28/2016 2:50 PM EST Patient is calling again to check status of rescheduling his surgery. Telephone Encounter - Rena Aldridge - 01/19/2016 11:54 AM EST Ptient is calling back trying to reschedule his Surgery with Dr. Bolaños. Please call him back at [phone] Telephone Encounter - Jaspal Gianghen Katharine - 01/18/2016 3:58 PM EST Who is calling: Derrick nolan Was this a new injury? no Have you had Surgery?no If so when?na Who was the Surgeon?annamarie What is the question: Patient calling. He has resolved other issues and would like to reschedule surgery with Dr. Bolaños as soon as is possible. Best number to reach the caller: [phone] documented in this encounter Plan of Treatment Not on filedocumented as of this encounter Visit Diagnoses Not on filedocumented in this encounter Care Teams Plate Grainer Apprentice Relationship Specialty Start Date End Date Sherri Guzman MD PCP - General Family Medicine 12/21/15 [address] [place] [address] documented as of this encounter
--- OUTSIDE RECORDS SUMMARY | 2021-12-22 15:35 | XMS_ITS | Encounter Summary ---
:1955 Author Organization [facility] [place] [address] Care Team Providers Name Role Phone Unavailable Primary Care Provider Unavailable Encounter Details Date Type Department Care Team Description 12/23/[address] Scan at [facility] Ananda Pena MD [facility] [address] [address] GENERAL SURGERY [phone] [place] [address] (Wo rk) Social History Tobacco Use Types [...] Sig Dispensed Refills Start Date End Date beclomethasone (QVAR) 40 Inhale 2 puffs into 1 Inhaler 3 mcg/actuation Aerosol the lungs 2 times daily. cyclobenzaprine Take 1 tablet by 30 tablet 3 12/16/2014 (FLEXERIL) 10 mg Tablet mouth 3 times daily as needed for Muscle spasms. COMBIVENT RESPIMAT Inhale 2 puffs into 0 08/21/19 15 20-100 mcg/actuation the lungs every 4 Mist hours as needed. buPROPion (WELLBUTRIN Take 150 mg by mouth 0 SR) 150 mg Tablet 2 times daily. Sustained Release oxyCODONE (ROXICODONE) 5 Take 1-3 tablets by 20 tablet 0 11/29/2015 mg Tablet mouth every 4 hours as needed for Pain (give 5mg for pain 0-4; give 10mg for pain 5-7; give 15mg for pain 8-10). traMADol (ULTRAM) 50 mg Take 50 mg by mouth 0 11/29/2015 Tablet every 6 hours as needed for Pain. traZODone (DESYREL) 150 Take 1 tablet by 90 tablet 3 201411/29/2015 mg Tablet mouth nightly. gabapentin (NEURONTIN) Take 3 capsules by 90 capsule 0 12/1611/29/2015 300 mg Capsule mouth 3 times daily. ibuprofen (ADVIL;MOTRIN) Take 1 tablet by 30 tablet 3 12/1611/29/2015 800 mg Tablet mouth every 8 hours as needed for Pain. aspirin 81 mg Tablet, Take 81 mg by mouth 0 12/0911/29/2015 Delayed Release (E.C.) daily. ipratropium-albuterol Take 0.5 mg by 1 vial 4 11/19/2014 11/29/2015 (DUONEB) 0.5 mg-3 mg(2.5 nebulization every 4 mg base)/3 mL Solution hours. for Nebulization propranolol (INDERAL) 80 Take 1 tablet by 0 11/1911/29/2015 mg Tablet mouth 4 times daily. documented as of this encounter Plan of Treatment Not on filedocumented as of this encounter Procedures Procedure Name Priority Date/Time Associated Diagnosis Comme nts CT HEAD WO CONTRAST Routine 12/23/2014 8:10 AM Trauma Re sults for this (GENERIC) EDT procedure are i n the results section. documented in this encounter Results CT Head Wo Contrast (12/23/2014 8:10 AM EDT) Anatomical Region Laterality Modality Head Computed Tomography Specimen (Source) Anatomical Location Collection Method / Collectio n Time Received Time / Laterality Volume Impressions 12/23/2014 11:39 AM EDT IMPRESSION: 1. ??No acute intracranial hemorrhage. 2. 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 Recommend comparison with out side head imaging if available. I have personally reviewed the image(s) and the residents interpretation and agree with the findings, Nadiya Smalls at 12/23/2014 11:39 AM Narrative 12/23/2014 11:39 AM EDT EXAMINATION: CT HEAD WO CONTRAST CLINICAL HISTORY: s/p fall down stairs, s/p IPH, evaluate IPH, evaluate brain pathology TECHNIQUE: Axial sections through the he ad were obtained without intravenous contrast. COMPARISON: CT head 11/06/2014 and MRI bra in 11/08/2014 FINDINGS: Ventricles and sulci are of no rmal size and configuration for age. Linear area of hyperdensity in the poste rior right frontal lobe is unchanged in configuration from prior CT 11/06/2014; th is could possibly reflect a calcified thrombosed vein. Persistent subarachnoid blood products are considered less likely. No new areas of intraparenchymal hyperdensity to suggest an intraparenchymal or extra-axial hemorrha ge. Similar appearance of patchy subcortical and periventricular hypoatte nuation, particularly around the ventricular atria. There is no extra-axi al collection, mass, focal intra-axial lesion, or loss of larkin-white differenti ation. Paranasal sinuses and mastoids are clear. Osseous structures are of nor mal appearance; no calvarial fracture. No significant extracalvarial soft tissu e swelling. The orbits are normal in appearance. Procedure Note Nadiya Smalls MD - 12/23/2014Form atting of this note might be different from the original. EXAMINATION: CT HEAD WO CONTRAST CLINICAL HISTORY: s/p fall down stairs, s/p IPH, evaluate IPH, evaluate brain pathology TECHNIQUE: Axial sections through the he ad were obtained without intravenous contrast. COMPARISON: CT head 11/06/2014 and MRI bra in 11/08/2014 FINDINGS: Ventricles and sulci are of no rmal size and configuration for age. Linear area of hyperdensity in the poste rior right frontal lobe is unchanged in configuration from prior CT 11/06/2014; th is could possibly reflect a calcified thrombosed vein. Persistent subarachnoid blood products are considered less likely. No new areas of intraparenchymal hyperdensity to suggest an intraparenchymal or extra-axial hemorrha ge. Similar appearance of patchy subcortical and periventricular hypoatte nuation, particularly around the ventricular atria. There is no extra-axi al collection, mass, focal intra-axial lesion, or loss of larkin-white differenti ation. Paranasal sinuses and mastoids are clear. Osseous structures are of nor mal appearance; no calvarial fracture. No significant extracalvarial soft tissu e swelling. The orbits are normal in appearance. IMPRESSION IMPRESSION: 1. No acute intracranial hemorrhage. 2. 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 Recommend comparison with out side head imaging if available. I have personally reviewed the image(s) and the residents interpretation and agree with the findings, Nadiya Smalls at 12/23/2014 11:39 AM Ananda Pena MD IMG CT ORDERABLES documented in this encounter Visit Diagnoses Diagnosis Trauma Injury, other and unspecified, unspecifi ed site documented in this encounter
--- OUTSIDE RECORDS SUMMARY | 2021-12-22 15:35 | XMS_ITS | Encounter Summary ---
:1955 [place] [address] Care Team Providers Name Role Phone Sherri Guzman MD Primary Care Provider Encounter Details Date Type Department Care Team Description 11/20/2014 [facility], [facility] [address] [place]TH[place]AEDIC [address] SURGERY [phone] [place], [place] [address] Social History Tobacco Use Types [...] needed. buPROPion (WELLBUTRIN Take 150 mg by 0 SR) 150 mg Tablet mouth 2 times Sustained Release daily. acetaminophen Take 2 tablets by 30 tablet 1 11/19/201412/03 (TYLENOL) 325 mg mouth every 6 Tablet hours. bisacodyl (DULCOLAX) Take 2 tablets by 30 tablet 0 11/20/19 15 12/16/2014 5 mg Tablet, Delayed mouth 2 times daily Release (E.C.) as needed for Constipation. bisacodyl (DULCOLAX) Place 1 suppository 60 suppository 3 12/16/2014 10 mg Suppository rectally daily as needed. ipratropium-albuterol Take 0.5 mg by 1 vial 4 11/19/2014 11/29/2015 (DUONEB) 0.5 mg-3 nebulization every mg(2.5 mg base)/3 mL 4 hours. Solution for Nebulization lidocaine (LIDODERM) Place 1 patch onto 30 patch 0 015 12/16/2014 5 %(700 mg/patch) the skin daily. Adhesive Patch, Medicated lisinopril Take 1 tablet by 30 tablet 12 11/19/2014 12/17/19 15 (PRINIVIL;ZESTRIL) 10 mouth daily. mg Tablet miconazole (MICOTIN) Apply topically 2 70 g 0 11/20/19 15 12/16/2014 2 % Powder times daily. multivitamin Take 1 tablet by 0 11/19/20142014 (THERAGRAN) Tablet mouth daily. nicotine (NICODERM Place 1 patch onto 28 patch 0 5 12/16/2014 CQ) 21 mg/24 hr Patch the skin daily. 24 hr oxyCODONE Take 1-3 tablets by 0 11/19/201412/16 (ROXICODONE) 5 mg mouth every 4 hours Tablet as needed for Pain (give 5mg for pain 0-4; give 10mg for pain 5-7; give 15mg for pain 8-10). polyethylene glycol Take 17 g by mouth 14 each 0 11/20/19 15 12/16/2014 (MIRALAX) 17 gram 2 times daily. Powder in Packet propranolol (INDERAL) Take 1 tablet by 0 11/20/19 15 11/29/2015 80 mg Tablet mouth 4 times daily. senna-docusate Take 4 tablets by 60 tablet 11 11/19/2014 (PERICOLACE) 8.6-50 mouth 2 times mg Tablet daily. traZODone (DESYREL) Take 1 tablet by 90 tablet 3 11/19/2014 12/16/2014 150 mg Tablet mouth nightly. gabapentin Take 900 mg by 0 12/16/2014 (NEURONTIN) 300 mg mouth 3 times Capsule daily. citalopram (CELEXA) Take 20 mg by mouth 0 12/16/2014 20 mg Tablet daily. beclomethasone (QVAR) Inhale 2 puffs into 0 12/16/2014 40 mcg/actuation the lungs 2 times Aerosol daily. documented as of this encounter Plan of Treatment Not on filedocumented as of this encounter Procedures Procedure Name Priority Date/Time Associated Diagnosis Comme nts FILM LIBRARY Routine 11/20/2014 12:00 AM Wrist pain, left Resu lts for this STORAGE ONLY DX EDT procedure ar e in WRIST the results section. documented in this encounter Results Film Library- Storage only DX Wrist (11/20/2014 12:00 AM EDT) Specimen (Source) Anatomical Location Collection Method / Collectio n Time Received Time / Laterality Volume Narrative [facility] - 11/09/2015 11:42 AM EDT This exam is for storage only and is aut o-finalizing. Jared Bolaños MD IMG FILM LIBRARY ORDERABLES Performing Organization Address City/State/ZIP Code Phon e Number [place], [place] documented in this encounter Visit Diagnoses Diagnosis Wrist pain, left Pain in joint, forearm documented in this encounter Care Teams Repair Technician Relationship Specialty Start Date End Date Sherri Guzman MD PCP - General 04/24/14 12/15/14 [address] [place] [address] documented as of this encounter
--- OUTSIDE RECORDS SUMMARY | 2021-12-22 15:35 | XMS_ITS | Encounter Summary ---
:1955 Author Organization [facility] [place] [address] Care Team Providers Name Role Phone Unavailable Primary Care Provider Unavailable Encounter Details Date Type Department Care Team Description 11/29/2015 Telephone Orthopaedics at [facility] Jared Bolaños MD [facility] [place] [address] ORTHOPAEDIC SURGERY [phone] [place] [id number] (Wo rk) Social History Tobacco Use Types [...] Telephone Encounter - Jarek Bolaños RN - 11/29/2015 1:18 PM EDT Call received from Radiology at [facility]. They received a request for prior left wrist films. They do not have any images of the wrist to send. documented in this encounter Plan of Treatment Not on filedocumented as of this encounter Visit Diagnoses Not on filedocumented in this encounter
--- OUTSIDE RECORDS SUMMARY | 2021-12-22 15:35 | XMS_ITS | Encounter Summary ---
:1955 Author Organization [facility] [place] [address] Care Team Providers Name Role Phone Unavailable Primary Care Provider Unavailable Reason for Visit Reason Onset Date Comments Appointment 12/16/2014 Other 12/16/2014 Encounter Details Date Type Department Care Team Description 12/16/2014 Telephone Orthopaedics at [facility] Jared Bolaños MD Appointment; Other [facility] [place] [address] ORTHOPAEDIC SURG [place], [place] [address] (Wo rk) Social History Tobacco [...] Notes Telephone Encounter - Haleigh Rodriguez - 12/22/2014 7:47 AM EDT Unable to contact, letter sent Telephone Encounter - Haleigh Rodriguez - 12/18/2014 1:36 PM EDT LM#2 to reschedule nguyen with dr bolaños, and find out about OT for bracing Telephone Encounter - Haleigh Rodriguez - 12/16/2014 4:29 PM EDT Lm#1 to reschedule appt with Dr Bolaños for when ever is convenient for Derrick, also need to know where he is going for OT for his brace in [facility] so we can send that referral. documented in this encounter Plan of Treatment Not on filedocumented as of this encounter Visit Diagnoses Not on filedocumented in this encounter
--- OUTSIDE RECORDS SUMMARY | 2021-12-22 15:35 | XMS_ITS | Encounter Summary ---
:1955 Author Organization [facility] [place] [address] Care Team Providers Name Role Phone Unavailable Primary Care Provider Unavailable Encounter Details Date Type Department Care Team Description 11/29/2015 Hospital Encounter XRay at [facility] Jared Bolaños, Left wrist pain [address] [facility] [address] ORTHOPAEDIC SURGERY [place], [place] [address] Social History Tobacco Use Types [...] Sig Dispensed Refills Start Date End Date gabapentin (NEURONTIN) 800 Take 800 mg by [...] Tablet Sustained mouth 2 times Release daily. oxyCODONE (ROXICODONE) 5 mg Take 1 tablet by 40 tablet 0 03/29/2016 Tablet mouth every 4 hours as needed for Pain. zolpidem (AMBIEN) 10 mg Take 10 mg by 0 03/29/2016 Tablet mouth nightly as needed for Sleep. HYDROcodone-acetaminophen Take 1 tablet by 0 03/29/2016 (NORCO) 5-325 mg Tablet mouth every 6 hours as needed for Pain. acetaminophen (TYLENOL) 160 Take 15 0 05/01/2016 mg/5 mL Liquid mg/kg/dose by mouth every 4 hours as needed for Fever. lidocaine (XYLOCAINE) 5 % APPLY TO AFFECTED 0 08/14/2016 Ointment AREA FOUR TIMES DAILY sucralfate (CARAFATE) 1 gram Take 1 tablet by 0 0 11/10/2015 03/29/2016 Tablet mouth 4 times daily. documented as of this encounter Plan of Treatment Not on filedocumented as of this encounter Procedures Procedure Name Priority Date/Time Associated Diagnosis Comme nts XR WRIST 3 VIEWS Routine 11/29/2015 8:56 AM Left wrist pain Re sults for this LEFT EDT procedure are i n the results section. documented in this encounter Results XR Wrist Complete Min 3 views Left (Generic) (11/29/2015 8:56 AM EDT) Anatomical Region Laterality Modality Left Digital Radiography Specimen (Source) Anatomical Location Collection Method / Collectio n Time Received Time / Laterality Volume Impressions 11/29/2015 10:19 AM EDT 1. ??Radiographically healed distal left radius fracture in stable alignment, with dorsal tilt of the distal radius ar ticular surface. 2. ??No acute osseous abnormality identi fied. Narrative 11/29/2015 10:19 AM EDT EXAMINATION: XR WRIST COMPLETE MIN 3 VIEWS LEFT CLINICAL HISTORY: LEFT WRIST PAIN 2ND OP IN S/P FX. 11/2014 TECHNIQUE: PA, lateral, oblique, and anais icular views of the left wrist. COMPARISON: Outside institution radiogra phs of the left wrist dated 03/25/2015. FINDINGS: Radiographically healed distal radius fr acture in unchanged alignment, with dorsal tilt of articular surface of the distal radius again noted. No new fracture is identified. Alignment of the distal radioulnar joint and carpal rows are maintained. No widening of the scaph olunate interval. There are mild degenerative changes at the basal joint. Stable small sclerotic focus in the capitate, likely representing a bone isl and. No radiographically evident soft tissue swelling. Procedure Note Khushi Downey MD - 11/29/2015Formatt ing of this note might be different from the original. EXAMINATION: XR WRIST COMPLETE MIN 3 VIE WS LEFT CLINICAL HISTORY: LEFT WRIST PAIN 2ND OP IN S/P FX. 11/2014 TECHNIQUE: PA, lateral, oblique, and anais icular views of the left wrist. COMPARISON: Outside institution radiogra phs of the left wrist dated 03/25/2015. FINDINGS: Radiographically healed distal radius fr acture in unchanged alignment, with dorsal tilt of articular surface of the distal radius again noted. No new fracture is identified. Alignment of the distal radioulnar joint and carpal rows are maintained. No widening of the scaph olunate interval. There are mild degenerative changes at the basal joint. Stable small sclerotic focus in the capitate, likely representing a bone isl and. No radiographically evident soft tissue swelling. IMPRESSION 1. Radiographically healed distal left r adius fracture in stable alignment, with dorsal tilt of the distal radius ar ticular surface. 2. No acute osseous abnormality identifi ed. Jared Bolaños MD IMG DX ORDERABLES documented in this encounter Visit Diagnoses Diagnosis Left wrist pain Pain in joint, forearm documented in this encounter
--- OUTSIDE RECORDS SUMMARY | 2021-12-22 15:35 | XMS_ITS | Encounter Summary ---
:1955 Author Organization [facility] Address [address] [place] [address] Care Team Providers Name Role Phone Unavailable Primary Care Provider Unavailable Encounter Details Date Type Department Care Team Description 04/28/2015 Orders Only Neurosurgery at [facility] Hayden Meena Morales, Abnormal CT scan, [facility] NUCLEAR DESIGN [place] [address] [address]IVE [phone] NE[place] [address] Social History Tobacco Use Types Packs/Day Years [...] on file documented as of this encounter Plan of Treatment Not on filedocumented as of this encounter Visit Diagnoses Diagnosis Abnormal CT scan, head Nonspecific (abnormal) findings on radio logical and other examination of skull and head documented in this encounter
--- OUTSIDE RECORDS SUMMARY | 2021-12-22 15:35 | XMS_ITS | Encounter Summary ---
:1955 Author Organization [facility] [place] [address] Care Team Providers Name Role Phone Unavailable Primary Care Provider Unavailable Reason for Referral Diagnostic X-Ray (Routine) - Closed Specialty Diagnoses / Procedures Referred By Contact Refer red To Contact Radiology Diagnoses Ulnar fracture, unspecified laterality, closed, initial encounter Meredith Jaimes APRN [facility] Rad Xray Procedures XR Hand Diagnostic Minimum [address] [place] [address] [place] [address] Referral ID Status Reason Start Date Expiration Date Visits Requ ested Visits Authorized [id number] Closed 12/09/2014 12/09/2015 3 3 Reason for Visit Diagnostic X-Ray (Routine) - Closed Specialty Diagnoses / Procedures Referred By Contact Refer red To Contact Radiology Diagnoses Ulnar fracture, unspecified laterality, closed, initial encounter Meredith Jaimes APRN [facility] Rad Xray Procedures XR Hand Diagnostic Minimum [address] Views [address] [place] [address] [place] [address] Referral ID Status Reason Start Date Expiration Date Visits Requ ested Visits Authorized [id number] Closed 12/09/2014 12/09/2015 3 3 Encounter Details Date Type Department Care Team Description 12/16/2014 Hospital Encounter XRay at [facility] Ananda Pena Ulnar fracture, [address] Pedrito MD unspecified [place], [place] [facility] laterality, [place], [address] initial encounter [phone] [place] [address] Social History Tobacco Use Types Packs/Day Years [...] every 6 hours as needed for Pain. oxyCODONE (ROXICODONE) 5 Take 1-3 tablets by 20 tablet 0 12/18/2014 mg Tablet mouth every 4 hours as needed for Pain (give 5mg for pain 0-4; give 10mg for pain 5-7; give 15mg for pain 8-10). traZODone (DESYREL) 150 Take 1 tablet by [...] Priority Date/Time Associated Diagnosis Comme nts XR HAND DIAGNOSTIC Routine 12/16/2014 2:03 PM Ulnar fracture, Results for this MINIMUM 3 VIEWS EDT unspecified procedure ar e in laterality, closed, the resu lts initial encounter section. documented in this encounter Results XR Hand Diagnostic Minimum 3 Views (12/16/2014 2:03 PM EDT) Anatomical Region Laterality Modality Hand N/A Digital Radiography Specimen (Source) Anatomical Location Collection [...]
--- OUTSIDE RECORDS SUMMARY | 2021-12-22 15:35 | XMS_ITS | Encounter Summary ---
:1955 Author Organization [facility] [place] [address] Care Team Providers Name Role Phone Unavailable Primary Care Provider Unavailable Reason for Visit Reason Comments Neck Pain With Headaches Encounter Details Date Type Department Care Team Description 12/23/2014 Office Visit Spine Center at [facility] Juan Gilbert MD Neck pain [facility] [place] [facility] [place] [address] SPINE CENTER [phone] [place] [phone] (Wo rk) Social History Tobacco Use Types [...] documented as of this encounter Progress Notes Juan Gilbert MD - 12/23/2014 10:17 AM EDT Mr. Fernández is seen today in follow to her admission to [facility] two days after he fell down half a flight of stairs while drinking. Apparently, according to the note, he was unconscious. His original imaging demonstrated multilevel degenerative changes in his cervical spine without instability or fracture. He was maintained in a collar and returns today for followup. Lateral cervical x-rays were reviewed demonstrating no instability, multilevel degenerative changes throughout his cervical spine. He has some mild tenderness to palpation posteriorly. He has some stiffness on rotation, but no pain. He has full flexion and full extension. He has a wrist splint on the left hand, but otherwise he has no gross neurological deficits or symptoms. At this point, I have removed the cervical collar. He is searching for primary care physician close to home. He has no spine center followup needs. documented in this encounter Plan of Treatment Not on filedocumented as of this encounter Visit Diagnoses Diagnosis Neck pain Cervicalgia documented in this encounter
--- OUTSIDE RECORDS SUMMARY | 2021-12-22 15:35 | XMS_ITS | Encounter Summary ---
:1955 Author Organization [facility] [place] [address] Care Team Providers Name Role Phone Unavailable Primary Care Provider Unavailable Encounter Details Date Type Department Care Team Description 12/23/2014 Hospital Encounter XRay at [facility] Ananda Pena Pain of cervical [address] Pedrito MD spine [facility] [address] [place] [phone] [place] [address] Social History Tobacco Use Types Packs/Day Years [...] Priority Date/Time Associated Diagnosis Comme nts XR CERVICAL SPINE 1 Routine 12/23/2014 9:39 AM Pain of cervica l Results for this VIEW EDT spine procedure are i n the results section. documented in this encounter Results XR Cervical Spine 1 View (12/23/2014 9:39 AM EDT) Anatomical Region Laterality Modality C-spine N/A Digital Radiography Specimen (Source) Anatomical Location Collection Method / Collectio n Time Received Time / Laterality Volume Impressions 12/23/2014 10:04 AM EDT IMPRESSION: 1. ??Diffuse osteoporosis. 2. ??Wedge compression deformities are s een involving the C4, C5 and C6 vertebrae as described above. 3. ??Evidence of degenerative disc disea se at C4-5, C5-6 and C6-7. 4. ??Marginal osteophytic spurring arise s from the C3-C7 vertebrae. Narrative 12/23/2014 10:04 AM EDT EXAMINATION: XR CERVICAL SPINE 1 VIEW CLINICAL HISTORY: s/p fall, cervical spi ne pain, PLEASE OBTAIN FLEX/EX FILMS PRIOR TO SPINE CENTER APPOINTMENT TECHNIQUE: 1 standing lateral view. COMPARISON: None FINDINGS: There is diffuse osteoporosis. There are anterior wedge compression deformities involving the before meals 4, C5 and C6 vertebrae. There is an estimated loss of approximately 50% of each vertebral body height. There is intervertebral disc space narrowing at C4-5, C5-6 and C6-7 c onsistent with degenerative disc disease. The remaining intervertebral di sc spacings and vertebral body heights appeared adequately maintained. Vertebra l body alignment appeared to be within normal limits. The odontoid process and spinous processes appeared intact. Marginal osteophytic spurring is seen ar ising from the C3-7 vertebrae. Procedure Note AmbarJonathan, DO - 12/23/2014Format ting of this note might be different from the original. EXAMINATION: XR CERVICAL SPINE 1 VIEW CLINICAL HISTORY: s/p fall, cervical spi ne pain, PLEASE OBTAIN FLEX/EX FILMS PRIOR TO SPINE CENTER APPOINTMENT TECHNIQUE: 1 standing lateral view. COMPARISON: None FINDINGS: There is diffuse osteoporosis. There are anterior wedge compression deformities involving the before meals 4, C5 and C6 vertebrae. There is an estimated loss of approximately 50% of each vertebral body height. There is intervertebral disc space narrowing at C4-5, C5-6 and C6-7 c onsistent with degenerative disc disease. The remaining intervertebral di sc spacings and vertebral body heights appeared adequately maintained. Vertebra l body alignment appeared to be within normal limits. The odontoid process and spinous processes appeared intact. Marginal osteophytic spurring is seen ar ising from the C3-7 vertebrae. IMPRESSION IMPRESSION: 1. Diffuse osteoporosis. 2. Wedge compression deformities are see n involving the C4, C5 and C6 vertebrae as described above. 3. Evidence of degenerative disc disease at C4-5, C5-6 and C6-7. 4. Marginal osteophytic spurring arises from the C3-C7 vertebrae. Ananda Pena MD IMG DX ORDERABLES documented in this encounter Visit Diagnoses Diagnosis Pain of cervical spine Cervicalgia documented in this encounter
--- OUTSIDE RECORDS SUMMARY | 2021-12-22 15:35 | XMS_ITS | Encounter Summary ---
:1955 [place] [address] Care Team Providers Name Role Phone Unavailable Primary Care Provider Unavailable Encounter Details Date Type Department Care Team Description 03/25/2015 Hospital Encounter Radiology Library at [place], Jared Levine, Wrist pain, left [facility] [address] [place] [address] SURGERY [phone] [place], [place] [address] Social History Tobacco Use Types [...] Associated Diagnosis Comme nts FILM LIBRARY Routine 03/25/2015 12:00 AM Wrist pain, left Resu lts for this STORAGE ONLY DX EST procedure ar e in WRIST the results section. documented in this encounter Results Film Library- Storage only DX Wrist (03/25/2015 12:00 AM EST) Specimen (Source) Anatomical Location Collection Method / Collectio n Time Received Time / Laterality Volume Narrative [facility] - 11/09/2015 11:44 AM EDT This exam is for storage only and is aut o-finalizing. Jared Bolaños MD [facility] FILM LIBRARY ORDERABLES Performing Organization Address City/State/ZIP Code Phon e Number RAD [place], [place] documented in this encounter Visit Diagnoses Diagnosis Wrist pain, left Pain in joint, forearm documented in this encounter
--- OUTSIDE RECORDS SUMMARY | 2021-12-22 15:35 | XMS_ITS | Encounter Summary ---
:1955 Author Organization [facility] Address [address] [place] [address] Care Team Providers Name Role Phone Sherri Guzman MD Primary Care Provider Reason for Visit Reason Comments Follow Up Surgery sp left dist rad osteotomy w ith allograft bone graft dos 03/14/16 doi 11/2013 DOI new fall 03/27 Encounter Details Date Type Department Care Team Description 03/29/2016 Office Visit Orthopaedics at [facility] Rabia Bolaños, Closed fracture of [facility] distal end of left [address] [facility] radius with malunion, [place] [address] CENTER unspecified fracture [phone] ORTHOPAEDIC morphology, SURGERY subsequent encounter [place] [address] Social History Tobacco Use Types Packs/Day Years Used Date Current Every Day Smoker Cigarettes 0.5 Smokeless Tobacco: Never Used Tobacco Cessation: Ready to Quit: Yes; C james Given: No Alcohol Use Standard Drinks/Week Comments [...] Sign Reading Time Taken Comments Blood Pressure 109/78 03/29/2016 9:38 AM EST Pulse 60 03/29/2016 9:38 AM EST Temperature - - Respiratory Rate - - Oxygen Saturation - - Inhaled Oxygen Concentration - - Weight 93.4 kg (206 lb) 03/29/2016 9:38 AM EST stated Height 177.8 cm (5' 10) 03/29/2016 9:38 AM EST stated Body Mass Index 29.56 03/29/2016 9:38 AM EST documented in this encounter Progress Notes Nadiya Holly - 03/29/2016 9:35 AM EST Derrick Nolan presents to the clinic for a splint off per Dr. Bolaños. The patient removed splint himself prior to appointment. The patient was then sent to x-ray. Dena So MD - 03/29/2016 9:35 AM EST HISTORY OF PRESENT ILLNESS: Derrick Nolan is a 60-year-old gentleman who presents today following left distal radius osteotomy with allograft bone graft done on 03/14/[address] Bolaños. He is now 2 weeks status post that procedure. He is doing well overall with the exception of he sustained a fall when he tripped and fell on Sunday of this week. He says the splint was damaged at that time. Since then he has been only wearing an Al wrap. He continues to have some mild discomfort. He is taking Tylenol for that. He is not taking any nonsteroidal anti-inflammatory drugs. He denies substantial numbness or tingling. He does have some sensitivity, particularly near the incision. Denies fevers, chills, or other concerning symptoms. PHYSICAL EXAM: Mr. Nolan is in no acute distress. He is calm, cooperative, polite. He is breathing comfortably and responds to questions appropriately. Examination of his left upper extremity reveals a well-healed surgical incision with some mild erythema around there, but it does not appear concerning for infection. He has intact sensation to light touch in the median, radial, and ulnar nerve distributions. He is able to admissions manager, abduct his fingers, flex and extend his thumb, and make an A-OK sign. He has a 2+ radial pulse. RADIOGRAPHY: X-rays were reviewed by myself and Dr. Bolaños. There is interval fixation of his distal radius. There appears to be some bridging bone. No evidence of acute complicating processes. ASSESSMENT/PLAN: Derrick Nolan is a 60-year-old gentleman who is now 2 weeks status post left distal radius osteotomy with allograft bone graft. We educated him thoroughly that if he has issues with his cast he needs to come in as his injury is at risk for breaking the plate if he does not protect it appropriately. We also reviewed avoiding nonsteroidal anti-inflammatories and continuing to try to avoid any smoking. We also discussed vitamin C supplement which he said he will take. At today's visit we will plan to transition him into a cast and then we will bring him back in approximately 1 month with repeat x-rays out of cast. The remainder of his questions and concerns were addressed and answered. Piper Goldsmith - 03/29/2016 9:35 AM EST Derrick Nolan presents to the cast room for a cast on per Dr. So. The patient's skin is intact. The patient is going into a well padded short arm cast on the left side. The patient tolerated theprocedure well. The patient was given instructions for cast care and was given instruction to call the nurse with any questions or concerns. Rabia Bolaños MD - 03/29/2016 9:35 AM EST I examined Derrick Nolan and I agree with Dr. So's note. RABIA BOLAÑOS MD documented in this [...] the findings, Rachel caraballo 05/01/2016 4:22 PM Rabia Bolaños MD IMG DX ORDERABLES documented in this encounter Visit Diagnoses Diagnosis Closed fracture of distal end of left ra dius with malunion, unspecified fracture morphology, subsequent encounter Closed fracture of distal end of left ra dius with malunion, unspecified fracture morphology, subsequent encounter documented in this encounter Care Teams Communication Technician Relationship Specialty Start Date End Date Sherri Guzman MD PCP - General Family Medicine 12/21/15 [address] [place] [address] documented as of this encounter
--- OUTSIDE RECORDS SUMMARY | 2021-12-22 15:35 | XMS_ITS | Encounter Summary ---
:1955 [place] [address] Care Team Providers Name Role Phone Sherri Guzman MD Primary Care Provider Reason for Visit Auth/Cert Specialty Diagnoses / Procedures Referred By Contact Refer red To Contact Diagnoses malunion left distal radius Procedures PRO REPAIR NONUNION RADIUS OR ULNA REPAIR NONUNION OR MALUNION, RADIUS OR ULNA; W/O GRAFT Referral ID Status Reason Start Date Expiration Date Visits Requ ested Visits Authorized [id number] 1 1 Encounter Details Date Type Department Care Team Description 03/14/2016 Anesthesia Event Outpatient Surgery Melly Barber DO [facility] [place] [address] [place] [address] [place] Radha CrooksYuma Renzo Cash MD [facility] [address] [address] [facility] [place] [address] Anesthesia Record Procedure Summary Procedure Name Responsible Anesthesia Start Anesthesia Stop Time Anesthesiologist Time RADIAL OSTEOTOMY, Meredith Barber DO 03/14/16 0817 03/14/16 1 102 DISTAL (WRVU 9.09) (Left Wrist) Events Date Time Event Comment 03/14/2016 0817 Start 0819 AN Verify 0822 An Start Data 0825 An Induction 0827 An Intubation 0830 Anesthesia Ready 0843 0846 Skin Incision Time out done. 0920 an amira now BP cuff moved to right arm. 1043 An Tourn Deflated 117 minutes to crystal. 1050 Extubation/LMA Out 1054 an stop data 1101 Recovery or ICU Handoff Patient care was transferred to the destination unit staff after review of the patient's medica l history, current anesthetic/surgi hillary status and plan, according to the Provider Handoff Checklist. 1102 Stop Name Total fentaNYL 120 mcg IV Lidocaine 50 mg Propofol 200 mg Propofol INF 528.33 mg Dexamethasone 8 mg Ondansetron 4 mg PHENYLephrine 1,240 mcg ePHEDrine 105 mg ceFAZolin (ANCEF) 2 gram/50 mL infusion 2 g Albuterol Inhaler 12 puff lactated ringers infusion 1,000 mL 2,500 mL Agents Name O2 Air N2O Sevoflurane (et) Blood No blood administrations on file. Lines, Drains, and Airways Type Details Placement Removal PIV 03/14/16; 0752; basilic 03/14/16 0752 by Evelin, 0 03/14/16 1330 by mariza Toscano (medial side of arm), ABEL Tubbs RN right; [id number] catheter system; 20 gauge, 1 in length; intradermal injection, distraction; no longer indicated, catheter/device intact; 03/14/16; 1330 Supraglottic Mask Ventilation: Not 03/14/16 0827 by Alan, 0 03/14/16 1050 by Attempted (0); LMA Type: CRISTI Esparza, Hui Álvarez CRNA Unique (IGEL #4 with leak and replaced.); LMA Size: 5; Inserted by: Alan SUGAR DRIER Incision 03/14/16; 0902; wrist; 03/14/16 0902 by Charmaine, 10/31/21 1715 by 10/31/21 (LDA cleanup ABEL Macias Di erdre L utility RA#[id number]); 1715 (LDA cleanup utility RA#[id number]) documented in this encounter Social History Tobacco Use Types Packs/Day [...] on file documented as of this encounter OR Notes Anesthesia Postprocedure Evaluation - Meredith Barber DO - 03/16/2016 12:19 PM EST [facility] Department of Anesthesiology Post-procedure Note Patient: Derrick Nolan Procedure Summary Date Anesthesia Start Anesthesia Stop Room / Location 03/14/16 08 1102 [facility] OR [address] [place] [address] [facility] Procedure Diagnosis Surgeon Responsible Provider RADIAL OSTEOTOMY, DISTAL (WRVU 9.09) (Left Wrist) 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, unspecified fracture morphology, subsequent encounter (malunion left distal radius) Jared Bolaños MD Walker, Tacee E, DO All Anesthesia Providers: Anesthesiologist: Meredith Barber DO SUGAR DRIER: Hui Phillips CRNA Last (1hr) Vitals: BP Temp Pulse Resp SpO2 Patient Location: PACU/[facility] Level of Consciousness: Awake and Alert Pain Management: Satisfactory Analgesia PONV: None Cardiovascular Status: At Baseline and Hemodynamically Stable Respiratory Status: At Baseline and Room Air Postoperative Fluid Status: Intravascular EUvolemia Possible Anesthetic Complications: NONE apparent at time of evaluation Final Primary Anesthesia Type: General (The anesthetic type performed was the same as planned.) Comments: Meredith Barber DO Anesthesia Procedure Notes - Meredith Barber DO - 03/14/2016 8:08 AM EST Associated Order(s): ANESTHESIA BLOCK Procedure: Anesthesia Block Block: Post-op Pain Control, supraclavicular nerve block Start time: 03/14/2016 7:59 AM End time: 03/14/2016 8:05 AM Patient Location: Block Room Pre-Op Indication/Prep Position: sitting Prep: chlorhexidine, mask, cap, sterile gloves, hand hygeine, patient draped, Chlorhexidine allowed to dry Laterality: left Skin Medication lidocaine 1% 4 ml Injection Information Ultrasound Guidance: live and in-plane Ultrasound guidance was used to identify the targeted neuronal structure. Ultrasound was also used to identify needle positon and to identify surrounding tissue (bone, muscle, and blood vessels) to prevent inadvertent intraneural or intravascular needle placement and injection. The spread of local anesthetic was confirmed with live ultrasound imaging. Injection technique:single-shot Needle Length: 5 cm Gauge: 22 Needle Type: N-osdbe-pkuxe or Pajunk Medication injection made incrementally with aspirations. Nerve infiltration solution through a needle Ropivicaine 0.5% 30 mL Additional Notes Block placed pre-op for p op pain control, after IC. Uneventful placement, he tolerated the procedure well. Resident: Second Resident: Fellow: Attending Physician: MEREDITH BARBER ~~~~~~~~~~~~~~~~~~~~~~~~~~~~~~~~~~~~~~~~~~~~~~~~~~~~~~~~~~~~ Anesthesia Preprocedure Evaluation - Meredith Barber DO - 03/14/2016 7:11 AM EST Pre-Anesthesia Evaluation for: Derrick Nolan a 60 y.o. male. Procedure(s): REPAIR NONUNION OR MALUNION, RADIUS OR ULNA; W/O GRAFT (WRVU 11.28) Patient Active Problem List Diagnosis ??? Closed fracture of radius with malunion DOI 11/2014 ??? Neck pain ??? Mallet finger of right hand small finger ??? Abnormal brain CT Past Medical History Diagnosis Date ??? Neck pain 12/23/2014 No past surgical history on file. Social History Substance Use Topics ??? Smoking status: Current Every Day Smoker Packs/day: 0.50 Types: Cigarettes ??? Smokeless tobacco: Never Used ??? Alcohol use 6.0 oz/week 10 Standard drinks or equivalent per week Comment: social History Drug Use No Allergies Allergen Reactions ??? Losartan Other (See Comments) Worsening headaches Medications: MAR and/or home medications have been reviewed. Physical Exam: There were no vitals filed for this visit. There is no height or weight on file to calculate BMI. Anesthesia Physical Exam Anesthesia Plan: ASA 2 general, 60 y/o male for Repair of nonunion radius (L) Informed Consent: PAT Staff Note documented in this encounter Plan of Treatment Not on filedocumented as of this encounter Procedures Procedure Name Priority Date/Time Associated Diagnosis Comme nts ANESTHESIA BLOCK Routine 03/14/2016 8:10 AM EST Procedure Note - Ana Lilia Barber DO - 03/14/2016 8:08 AM ESTThis note is in progress. Formatting of this note migh t be different from the original. Procedure: Anesthesia Block Block: Post-op Pain Control, supraclavicular nerve block Start time: 03/14/2016 7:59 A M End time: 03/14/2016 8:05 AM Patient Location: Block Room Pre-Op Indication/Prep Position: sitting Prep: chlorhexidine, mask, c ap, sterile gloves, hand hygeine, patient draped, Chlorhexidine allowed to dry Laterality: left Skin Medication lidocaine 1% 4 ml Injection Information Ultrasound Guidance: live an d in-plane Ultrasound guidance was use d to identify the targeted neuronal structure. Ultrasound was also used to identify needle positon and to identify surrounding tissue (bone, muscle, and blood vessels) to prevent inadvertent intraneural or i ntravascular needle placement and injection. The spread of local anesthetic was confirmed with live ultrasound imaging. Injection technique:single-s hot Needle Length: 5 cm Gauge: 22 Needle Type: O-wtvuc-rnctf o r Pajunk Medication injection made in crementally with aspirations. Nerve infiltration solution through a needle Ropivicaine 0.5% 30 mL Additional Notes Block placed pre-op for p op pain control, after IC. Uneventful placement, he tolerated the procedure well. Resident: Second Resident: Fellow: Attending Physician: MEREDITH BARBER ~~~~~~~~~~~~~~~~~~~~~~~~~~~~ ~~~~~~~~~~~~~~~~~~~~~~~~~~~~~~~~ documented in this encounter Visit Diagnoses Not on filedocumented in this encounter Administered Medications Inactive Administered Medications - up to 3 most recent administrations Medication Order MAR Action Action Date Dose Rate Site albuterol (PROVENTIL Given 03/14/2016 10:47 AM EST 6 puffs HFA;VENTOLIN HFA;PROAIR) 90 mcg/actuation inhaler PRN, Starting on Sun03/14/16 at 0838, Until Sun03/14/16 at 1104, Wheezing, Anesthesia Intra-op, Routine Given 03/14/2016 8:38 AM EST 6 puffs ceFAZolin (ANCEF) 2 gram/50 mL infusion Given 03/14/2016 8:30 AM EST 2 g 1 dose, Starting on Sun03/14/16 at 0812, Until Sun03/14/16 at 0830, KAREN CHAIREZ: cabinet override dexamethasone (DECADRON) injection Given 03/14/2016 8:32 AM EST 8 mg PRN, Starting on Sun03/14/16 at 0832, Until Sun03/14/16 at 1104, Anesthesia Intra-op, Routine ePHEDrine 5 mg/mL multi-dose injection Given 03/14/2016 10:30 AM EST 5 mg PRN, Starting on Sun03/14/16 at 0829, Until Sun03/14/16 at 1104, Anesthesia Intra-op, Routine Given 03/14/2016 10:22 AM EST 5 mg Given 03/14/2016 10:15 AM EST 5 mg fentaNYL 50 mcg/mL multi-dose injection Given 03/14/2016 10:20 AM EST 10 mcg PRN, Starting on Sun03/14/16 at 0825, Until Sun03/14/16 at 1104, Pain, Anesthesia Intra-op, Routine Given 03/14/2016 9:38 AM EST 10 mcg Given 03/14/2016 9:15 AM EST 25 mcg lactated ringers infusion 1,000 mL New Bag 03/14/2016 9:06 AM EST 1,000 mL, at 100 mL/hr, Intravenous, CONTINUOUS, Starting on Sun03/14/16 at 0745, Until Sun03/14/16 at 1347, Day of Surgery (Day of Procedure) New Bag 03/14/2016 7:53 AM EST 1,000 mLs 100 mL/hr lidocaine (PF) (XYLOCAINE) 100 mg/5 mL (2 %) Given 7 8:25 AM EST 50 mg injection PRN, Starting on Sun03/14/16 at 0825, Until Sun03/14/16 at 1104, Anesthesia Intra-op, Routine ondansetron (ZOFRAN) injection Given 03/14/2016 9:39 AM EST 4 mg PRN, Starting on Sun03/14/16 at 0939, Until Sun03/14/16 at 1104, Nausea, Anesthesia Intra-op, Routine PHENYLephrine HCl in NS (PF) Given 03/14/2016 10:30 AM EST 80 mc g (JULIO-SYNEPHRINE) 0.8 mg/10 mL (80 mcg/mL) multi-dose injection Syrg PRN, Starting on Sun03/14/16 at 0828, Until Sun03/14/16 at 1104, Anesthesia Intra-op, Routine Given 03/14/2016 10:22 AM EST 80 mcg Given 03/14/2016 9:34 AM EST 80 mcg propofol (DIPRIVAN) 10 mg/mL bolus injection Given 7 8:26 AM EST 50 mg (Anesthesia) PRN, Starting on Sun03/14/16 at 0825, Until Sun03/14/16 at 1104, Anesthesia Intra-op Given 03/14/2016 8:25 AM EST 150 mg propofol (DIPRIVAN) Rate/Dose 03/14/2016 9:57 50 mcg/kg/min 27.2 mL/ hr infusion Change AM EST CONTINUOUS PRN, Starting on Sun03/14/16 at 0835, Until Sun03/14/16 at 1104, Anesthesia Intra-op, Routine Rate/Dose Change 03/14/2016 9:22 AM EST 60 mcg/kg/min 32.7 mL/hr Rate/Dose Change 03/14/2016 9:11 AM EST 50 mcg/kg/min 27.2 mL/hr documented in this encounter Care Teams Farm Equipment Engine Mechanic Relationship Specialty Start Date End Date Sherri Guzman MD PCP - General Family Medicine 12/21/15 [address] [place] [address] documented as of this encounter
--- OUTSIDE RECORDS SUMMARY | 2021-12-22 15:35 | XMS_ITS | Encounter Summary ---
:1955 [place] [address] Care Team Providers Name Role Phone Unavailable Primary Care Provider Unavailable Encounter Details Date Type Department Care Team Description 12/18/2015 Hospital Encounter Radiology Library at Jared Bolaños, Wrist pain, left [facility] [address] [place]THOPAEDIC [address] SURGERY [phone] [place] [id number] Social History Tobacco Use Types Packs/Day Years [...] mg Tablet Take 1 tablet by 0 0 09/2015 mouth daily. beclomethasone (QVAR) 40 [...] Associated Diagnosis Comme nts FILM LIBRARY Routine 12/18/2015 12:00 AM Wrist pain, left Resu lts for this STORAGE ONLY DX EDT procedure ar e in WRIST the results section. documented in this encounter Results Film Library- Storage only DX Wrist (12/18/2015 12:00 AM EDT) Specimen (Source) Anatomical Location Collection Method / Collectio n Time Received Time / Laterality Volume Narrative CHUCK MCKEON - 11/09/2015 11:38 AM EDT This exam is for storage only and is aut o-finalizing. Jared Bolaños MD IMAbner FILM LIBRARY ORDERABLES Performing Organization Address City/State/ZIP Code Phon e Number LINDA LINDA [place], [place] documented in this encounter Visit Diagnoses Diagnosis Wrist pain, left Pain in joint, forearm documented in this encounter
--- OUTSIDE RECORDS SUMMARY | 2021-12-22 15:35 | XMS_ITS | Encounter Summary ---
:1955 Author Organization [facility] Address [facility] [place] [address] Care Team Providers Name Role Phone Sherri Guzman MD Primary Care Provider Encounter Details Date Type Department Care Team Description 03/29/2016 Hospital Encounter XRay at [facility] Jared Bolaños Closed fracture of [address] Abner MD distal end of left [place], [place] [facility] radius with [id number] mat[place], ORTHOPAEDIC unspecified fra cture SURGERY morphology, [place] [id number] Social History Tobacco Use Types Packs/Day Years [...] Tablet Sustained mouth 2 times Release daily. acetaminophen (TYLENOL) 160 Take 15 0 05/01/2016 mg/5 mL Liquid mg/kg/dose by mouth every 4 hours as needed for Fever. lidocaine (XYLOCAINE) 5 % APPLY TO AFFECTED 0 08/14/2016 Ointment AREA FOUR TIMES DAILY documented as of this encounter Plan of Treatment Not on filedocumented as of this encounter Procedures Procedure Name Priority Date/Time Associated Diagnosis Comme nts XR WRIST 3 VIEWS Routine 03/29/2016 8:33 AM Closed fracture of Results for this LEFT EST distal end of left procedure are in radius with the results malunion, section. unspecified fracture morphology, subsequent encounter documented in this encounter Results XR Wrist Complete Min 3 views Left (Generic) (03/29/2016 8:33 AM EST) Anatomical Region Laterality Modality Left Digital Radiography Specimen (Source) Anatomical Location Collection Method / Collectio n Time Received Time / Laterality Volume Impressions 03/29/2016 9:21 AM EST New changes of ORIF of the distal radius, ??with evidence of healing. Narrative 03/29/2016 9:21 AM EST EXAMINATION: XR WRIST COMPLETE MIN 3 VIEWS LEFT (GENERIC) CLINICAL HISTORY: s/p osteotomy distal r adius, LEFT TECHNIQUE: 3 views COMPARISON: March 14, 2016 FINDINGS: There is a dorsal plate with multiple in terlocking screws stabilizing the distal left radius. There is indistinctness of the fracture margins and with mild heterotopic ossification around the frac ture lines. Soft tissue swelling around the left wrist is also noted. Procedure Note Jolie Huertas MD - 03/29/2016 EXAMINATION: XR WRIST COMPLETE MIN 3 VIE WS LEFT (GENERIC) CLINICAL HISTORY: s/p osteotomy distal r adius, LEFT TECHNIQUE: 3 views COMPARISON: March 14, 2016 FINDINGS: There is a dorsal plate with multiple in terlocking screws stabilizing the distal left radius. There is indistinctness of the fracture margins and with mild heterotopic ossification around the frac ture lines. Soft tissue swelling around the left wrist is also noted. IMPRESSION New changes of ORIF of the distal radius , with evidence of healing. Jared Bolaños MD IMG DX ORDERABLES documented in this encounter Visit Diagnoses Diagnosis Closed fracture of distal end of left ra dius with malunion, unspecified fracture morphology, subsequent encounter documented in this encounter Care Teams Multimedia Specialist Relationship Specialty Start Date End Date Sherri Guzman MD PCP - General Family Medicine 12/21/15 [address] [place] [address] documented as of this encounter
--- OUTSIDE RECORDS SUMMARY | 2021-12-22 15:35 | XMS_ITS | Encounter Summary ---
:1955 Author Organization [facility] Address [facility] [place] [address] Care Team Providers Name Role Phone Unavailable Primary Care Provider Unavailable Reason for Visit Reason Comments Left Wrist Pain DOI 11/22/14 Consultation (Routine) - Specialty Diagnoses / Procedures Referred By Contact Refer red To Contact Orthopaedics Diagnoses Left wrist/ulnar pain s/p fracture - 2nd opinion Qamar Preston MD Warhold, Lance G, MD Procedures [address] [facility] [place], [place] [address] [place] [address] Phone: Fax: Referral ID Status Reason Start Date Expiration Date Visits V isits Requested Authorized [id number] 11/09/2015 11/08/2016 1 1 Encounter Details Date Type Department Care Team Description 11/29/2015 Office [place] [facility] [place] Bolaños, Closed fracture of [facility] distal end of left [address] [facility] with malunion, [place] [address] [facility] unspecified fracture [phone] ORTHOPAEDIC morphology, SURGERY subsequent encounter [place], [place] [address] Social History Tobacco Use Types Packs/Day Years Used Date Current Every Day Smoker Cigarettes 0.5 Smokeless Tobacco: Never Used Tobacco Cessation: Ready to Quit: No Alcohol Use Standard Drinks/Week Comments Yes [...] Sign Reading Time Taken Comments Blood Pressure 142/81 11/29/2015 9:17 AM EDT Pulse 57 11/29/2015 9:17 AM EDT Temperature - - Respiratory Rate - - Oxygen Saturation - - Inhaled Oxygen Concentration - - Weight 92.5 kg (204 lb) 11/29/2015 9:17 AM EDT STATED Height 177.8 cm (5' 10) 11/29/2015 9:17 AM EDT STATED Body Mass Index 29.27 11/29/2015 9:17 AM EDT documented in this encounter Progress Notes Jared Bolaños MD - 11/29/2015 10:15 AM EDT Derrick Nolan is a 60-year-old male who was sent to me for a consultation by Dr. Qamar Preston for a malunion of his left distal radius fracture. The injury occurred approximately a year ago when he had a fall at home. He has developed ulnar-positive variance and dorsal tilt of his distal radius fracture. His ulnar-positive variance measures about 3.5 mm. He presents chiefly with a complaint of ulnar-sided wrist pain which causes him chronic aching in the wrist. He does have some modest deformity and limitation of range of motion in addition which is less troubling to him. He is a smoker and is attempting to manage his smoking addiction, and I did emphasize that this would be important to do prior to any surgery if possible. I reviewed the circumstances with him and did offer him the option of a distal radius osteotomy of his left wrist. He is aware that nonunion, malunion, infection, neurovascular injury, tendon rupture, acute or delayed hardware failure, the potential need for hardware revision or removal, and chronic ulnar-sided pain are all potential risks. I do believe with an osteotomy, I can reduce his ulnar-positive variance significantly and likely eliminate a lot of his pain. I did tell him additional surgery to address ulnar-sided wrist pain could be needed if this not provide him with sufficient relief of his discomfort. He understand and wishes to proceed with left distal radius osteotomy. We will schedule this to be done at a time that is convenient for him in the near future. Lori Herrera RN - 11/29/2015 10:15 AM EDT Pro op teaching for general hand/wrist surgery left Closed fracture of distal end of left radius with malunion, unspecified fracture morphology, subsequent encounter [S52.502P] . Emphasis placed on post op hand elevation with hand above heart,fingers above palm,palm above wrist and wrist above elbow. This was demonstrated. Stressed no lifting of operative hand. Reviewed suggestions for taking post op pain medication. Questions solicited and answered to patient satisfaction. Written material provided. Patient knows to call with any additional questions or concerns. Of note patient is on [facility] twice per day for back issue. He notes his PCP Is Tianna Ware,[place] Tarah Moore PA - 11/29/2015 10:15 AM EDT This 60-year-old gentleman is referred from Dr. Qamar Preston today for evaluation of his left wrist. He is right-hand dominant, retired, who fell in November of 2014 and sustained a left distal radius fracture. This was treated nonoperatively. This has gone on to a malunion with shortening of the radius and a dorsal tilt resulting in ulnar-positive variance of 3.5 mm. Patient has had pain in the wrist that has not improved. He is finding that he cannot do any heavy lifting, pushing, or pulling with this hand as it causes pain. Splinting and bracing has not really offered any relief. Surgical treatment had been discussed with him by Dr. Preston, and he is referred here to discuss this further. Examination today of his left wrist shows no significant swelling, no erythema or warmth. He is tender over the distal ulnocarpal joint. He has flexion to 40 degrees, near full extension of the wrist. He has pain with ulnar deviation. No pain with radial deviation. He does not have much radial-sided wrist tenderness. He admits to normal sensation in all fingers. There is full range of motion of the fingers. The hand is well perfused. Negative Tinel's and Durkan's compression at the wrist. X-rays taken show ulnar-positive variance with malunion of the distal radius with shortening and a volar tilt. IMPRESSION: Malunion left distal radius. TREATMENT: Treatment options were discussed with him including observation and splinting. He states that he has not found this to be helpful, and his pain is persistent, it is interfering with the use of his hand. Other treatment option would be surgical in the form of osteotomy of distal radius to correct the angulation and bring it back out to length and, therefore, create an ulnar-neutral situation. Patient would like to proceed. Possible risks and complications were discussed with him including, but not limited to, infection, nerve, tendon, or blood vessel damage, nonunion, malunion, hardware failure, persistent pain, stiffness or tendon rupture, and potential need for further surgery. Consent was signed. This will be arranged at his convenience. documented in this encounter Plan of Treatment [...]
--- OUTSIDE RECORDS SUMMARY | 2021-12-22 15:35 | XMS_ITS | Encounter Summary ---
:1955 Author Organization [facility] [place] [address] Care Team Providers Name Role Phone Unavailable Primary Care Provider Unavailable Reason for Referral Occupational Therapy (Routine) - Closed Specialty Diagnoses / Procedures Referred By Contact Refer red To Contact Occupational Therapy Diagnoses Mallet finger of right hand Joaquina Brooke MD [facility] [address] R [place]AED[place] [address] Referral ID Status Reason Start Date Expiration Date Visits V isits Requested Authorized [id number] Closed Evaluate and 12/16/2014 06/14/2015 12 12 Treat Reason for Visit Reason Comments Left Wrist Fracture doi 11/04/14 Left Hand Fracture left small finger dist phal fx doi 11/04/14 Encounter Details Date Type Department Care Team Description 12/16/2014 Office Visit Orthopaedics at [facility] [place] Rabia Bolaños, Mallet finger of [facility] right hand small Drive [facility] [place] [address] [facility] [phone] ORTHOPAEDIC SURGERY [place], [place] [address] Social History Tobacco Use Types Packs/Day Years Used Date Current Every Day Smoker Cigarettes 0.5 Smokeless Tobacco: Never Used Tobacco Cessation: Ready to Quit: No; Co unseling Given: No Comments: started smoking at 14, increas ed smoking at 18 Alcohol Use Standard Drinks/Week Comments Yes 10 (1 standard drink = 0.6 oz pure some weeks none, some weeks up to alcohol) 10 Sex Assigned at Date Recorded Not on file documented as of this encounter Last Filed Vital Signs Vital Sign Reading Time Taken Comments Blood Pressure 170/105 12/16/2014 3:06 PM EDT Pulse 63 12/16/2014 3:06 PM EDT Temperature - - Respiratory Rate - - Oxygen Saturation - - Inhaled Oxygen Concentration - - Weight 90.7 kg (200 lb) 12/16/2014 3:06 PM EDT stated Height 177.8 cm (5' 10) 12/16/2014 3:06 PM EDT stated Body Mass Index 28.7 12/16/2014 3:06 PM EDT documented in this encounter Progress Notes Rabia Bolaños MD - 12/21/2014 12:39 PM EDT I examined Derrick Nolan and I agree with Dr. Brooke's note. RABIA BOLAÑOS MD Joaquina Brooke MD - 12/16/2014 3:47 PM EDT CHIEF COMPLAINT: Left wrist pain and follow up of mallet finger. HISTORY OF PRESENT ILLNESS: Mr. Nolan is a 59-year-old male with a history of alcohol abuse who was recently admitted to our hospital after a fall on November 04 while he was intoxicated. He reports falling down the stairs after tripping over something in his house. He did not seek immediate attention; however two days later he did present to [facility] where he was found to have an intraparenchymal hemorrhage and some rib fractures. He was then subsequently transferred to [facility] as a trauma alert and was admitted here for further care. Incidentally found during that admission was a left small finger mallet fracture of the distal phalanx. At that time, he was placed into a splint; however for the last several weeks he has been out of the splint while at home. He states that the finger does not bother him and he does not wish to seek any intervention for the finger; however he does have wrist pain that he reports is much worse with ulnar deviation type maneuvers. He reports a prior known distal radius fracture in 11/2013, which was treated nonoperatively, managed at [facility]; however since that time he describes intermittent pain with certain activities that involve ulnar deviation of the wrist that is felt deep in the dorsum of the wrist. He denies any numbness, tingling, or weakness in the left hand. PHYSICAL EXAMINATION: In general, the patient is a 59-year-old male, who is in no acute distress. Examination of the left wrist reveals mild deformity of the wrist with some focal swelling over the ulnar aspect of the wrist in addition to a mallet deformity of the left small finger. He denies any tenderness to palpation over the DIP or distal phalanx of the small finger; however he does have some tenderness deep over the DRUJ. Additionally with provocative testing involving forced ulnar deviation of the wrist, he has significant deep dorsal wrist pain. No tenderness to palpation over the ulnar aspect of the wrist. Flexion of the wrist is from 10 degrees of wrist flexion to roughly 30 degrees of wrist extension without pain. Sensation is intact to light touch in the medial, radial, and ulnar nerve distributions. Motor intact to resisted abduction, EPL and hand grasp, 2+ radial pulse. IMAGING: X-rays of the wrist demonstrate a healed distal radius fracture that has gone on to malunion with roughly 24 degrees of dorsal tilt. 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 ASSESSMENT AND PLAN: Mr. 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 Mr. Nolan left today's visit prior to being evaluated by Dr. Bolaños due to transportation constraints; however, he states that he did not wish to seek any further treatment for the mallet finger. We will place a referral to Occupational Therapy so that he can go to [facility] and have a mallet splint made, which we advised; however, if he wishes to come back and see us we will attempt to schedule another follow up visit so that he can discuss possible treatment options for his distal radius malunion and symptoms consistent with ulnar abutment. documented in this encounter Plan of Treatment Scheduled Referrals Name Type Priority Associated Order Schedule Diagnoses Referral to Outpatient Referral Routine Mallet finger of [place] red: Occupational Therapy right hand small finger documented as of this encounter Visit Diagnoses Diagnosis Mallet finger of right hand small finger Mallet finger documented in this encounter
--- OUTSIDE RECORDS SUMMARY | 2021-12-22 15:35 | XMS_ITS | Encounter Summary ---
:1955 Author Organization [facility] [id number] Care Team Providers Name Role Phone Sherri Guzman MD Primary Care Provider Reason for Visit Auth/Cert Specialty Diagnoses / Procedures Referred By Contact Refer red To Contact Diagnoses malunion left distal radius Procedures PRO REPAIR NONUNION RADIUS OR ULNA REPAIR NONUNION OR MALUNION, RADIUS OR ULNA; W/O GRAFT Referral ID Status Reason Start Date Expiration Date Visits Requ ested Visits Authorized [id number] 1 1 Encounter Details Date Type Department Care Team Description 03/14/2016 Surgery Outpatient Surgery Lesia Bolaños MD RADIAL OSTEOTOMY, [facility] DISTAL (WRVU 9.09) [facility] [place] [address] [place] [address] [phone] Social History Tobacco Use Types Packs/Day Years [...] Sign Reading Time Taken Comments Blood Pressure 112/53 03/14/2016 8:05 AM EST Pulse 62 03/14/2016 8:05 AM EST Temperature 36.4 ??C (97.5 ??F) 03/14/2016 7:24 AM EST Respiratory Rate 18 03/14/2016 8:05 AM EST Oxygen Saturation 97% 03/14/2016 8:05 AM EST Inhaled Oxygen Concentration - - Weight 90.7 kg (200 lb) 03/14/2016 7:24 AM EST Height 177.8 cm (5' 10) 03/14/2016 7:24 AM EST Body Mass Index 28.7 03/14/2016 7:24 AM EST documented in this encounter Discharge Instructions Discharge InstructionsAlize Chairez I, RN - 03/14/2016 7:48 AM EST General Anesthesia Discharge Instructions Go home and rest. You may be sleepy for several hours. Take it easy as sudden position changes may cause nausea and/or dizziness. Use caution on stairs. Do not smoke if you are alone. Follow a light to regular diet as tolerated today. If nausea occurs, start with clear liquids, and progress slowly to a regular diet. Do not drive, operate machinery, drink alcoholic beverages or make any legal decisions after having general anesthesia. The medications given change your reaction time and alter your judgement. IV site -- slight redness is normal, you can use warm compresses. If tenderness and redness increases or foul drainage occurs, please contact your M.D. Patients who have had endotracheal tubes/LMA (tubes used by the anesthesia staff to ensure a safe airway during your operation) may have a sore throat. This is normal and cold liquids or soothing lozengers will help ease this discomfort. Narcotic pain medications can cause constipation, please ask the surgeons office what they recommendfor prevention of this. Some non-pharmaceutical means of constipation prevention include increasing intake of fluids, eating more fruits and vegetables as well as fruit juices. If you are uncomfortable and/or unable to urinate within 8 hours of discharge and it is before 5 pm,call your physician. If it is after 5pm go to the closest emergency room or call the hospital groover and striper operator at [phone] and ask for physician drilling field professional covering for your physician. Questions or problems after 5pm or on a weekend: Call the [facility] groover and striper operator at and ask for the physician drilling field professional covering for your doctor. Upper Extremity Nerve Block Nerve blocks affect many types of nerves. The affected nerves control movement, pain, and normal sensation. This causes feelings such as: ?? Weakness ?? Numbness ?? Tingling ?? Heaviness ?? A feeling that your arm has fallen asleep. A nerve block can last from about 2 to 48 hours, depending on the medications used. Usually the weakness wears off first, then you will feel a numb or tingly sensation. Finally, the pain may come back.This can happen in any order. If you had a shoulder block, you may have other symptoms such as: 1. Mild shortness of breath 2. A hoarse voice 3. Blurry vision 4. Unequal pupils 5. Drooping of your face on the same side as the nerve block. These are common and expected side effects of this type of nerve block. Symptoms usually go away within 12 hours. If these symptoms do not go away, please call the Anesthesiology Department at . If you have severe or prolonged shortness of breath, please go to the nearest emergency department. If you continue to feel the effects of the nerve block for longer than 48 hours, please call the Anesthesiology department at . Pain Medication If needed, your surgeon will give you a prescription for pain medication. Start taking this medication before the nerve block wears off. Nerve blocks sometimes wear off during the night. It is a good idea to take your pain medicine as prescribed before going to sleep so you won't wake up with pain. The idea is to have pain medicine in your body before the nerve block wears off. To help prevent nausea, eat something before taking the pain medicine. Once a nerve block starts to wear off, it is usually completely gone within 60 minutes. It is important to have pain medicine in your system before the block wears off completely. Helpful tips to protect the part of your body that is numb. After a nerve block, you cannot feel pain, pressure, or extremes in temperature. Because your arm isnumb, it is more at risk for injury. Therefore.... ?? While you are awake, try to change positions of your arm often. This will help you avoid putting too much pressure on the limb for long periods of time. ?? While sleeping, pad the blocked limb with pillows to avoid placing too much pressure on the limb. ?? If you have a cast or a tight dressing, check the color of your fingers every couple of hours. Call your doctor if any look discolored. ?? If you had a shoulder, arm, or hand nerve block, you may go home with a sling. The sling will help to keep your arm in the ideal position. Wear the sling at all times until feeling returns. If you do not have a sling, watch the position of the blocked arm to make sure it is in a safe location. ?? Ask your family or support people to help with the above hints. QUESTIONS? Please call the Anesthesiology department at with concerns or after hours and ask for the anesthesiologist drilling field professional. Patient InstructionsQamar Herman MD - 03/14/2016 8:18 AM EST Orthopaedic Hand Surgery Same Day Discharge Instructions: General Activities ?? Diet: Start light and progress as tolerated. No alcoholic beverages on the day of surgery or while taking narcotics. If taking narcotics, make sure you are getting plenty of fluids and fiber. ?? In general, care should be taken the first several days following surgery to limit strenuous activity. You want to avoid any activities that you may lose your balance, slip, trip, fall or re-injure your surgery. ?? You may shower tomorrow. Cover your dressing/cast with a plastic bag to keep it dry. ?? No driving while taking narcotic medications or wearing a device (splint, cast, sling, brace) that limits joint mobility. When you feel you can safely control your vehicle and respond to unpredictable situations you may resume driving. Hand Use ?? Decreased sensation for several hours following surgery is often from the local anesthesia used during the procedure. This will resolve on its own. ?? If a regional anesthetic was used, wear your sling until you regain full function of your limb, and keep a close eye on the positioning of your arm and hand. When you have regained function and sensation you may then remove the sling. ?? Do not use your operative hand for any lifting, pushing or pulling. You may move your elbow and shoulder as tolerated. ?? Gentle exercises with any exposed fingers are encouraged and gently opening and closing the digits will keep the joints flexible. Specific activities and exercises will be discussed at your first postoperative visit. Ice and elevation ?? Some swelling is expected after surgery. Ice and elevation are the best remedies to reduce swelling and pain. Keep your hand properly elevated above the level of the heart i.e., fingers above palm, palm above the wrist, wrist above the elbow. Use pillows to increase elevation. ?? Intermittently apply ice to the outside of the dressing for 20 minutes 6-8 times a day. You will want to ice and elevate for 5-7 days after surgery or as long as it hurts. ?? Do not rely on a sling as it does not sufficiently elevate your hand. For proper elevation while walking around place your surgical hand on your opposite shoulder. Dressing/ Wound: ?? The post-op dressing, splint or cast is a very important part of your treatment. If you have any questions please call us for clarification. If your dressing becomes wet or damaged please call the office. ?? No creams, lotions or ointments on your incision. Keep steri-strips in place. They will fall off on their own Keep your dressing clean and DRY until your follow-up appointment. Do not change your dressing. If a plaster splint or a cast has been applied --do not remove it or stick objects in it (i.e. coat hangers, pencils). Please keep it dry, bag it for showers and keep out of running water. If it becomes wet you must call the office. Pain Management ?? Most patients only require narcotics for a short period of time. Ice and elevation is an effective and important modality to use in conjunction with your oral pain medication. In a day or two you may be ready to start decreasing the amount of pain medication your taking. Pain medication is to be taken on an ???as needed?if needed?? basis. Remember to start with the least amount and evaluateits effectiveness. ?? You should not drink alcoholic beverages while on pain medication. ?? If tolerated, please take Tylenol three times a day in conjunction with the narcotic as they complement each other. Once pain is better controlled, you may simply take extra strength Tylenol, one totwo tablets every six hours as needed. Do not exceed 3,000 mg in 24 hours. ?? The most common side effects of narcotic pain medications are nausea and constipation. To decrease nausea always take pain medication with food. If you are experiencing vomiting, please call us right away. To minimize constipation, drink plenty of fluids, eat a high fiber diet with plenty of fruitsand vegetables, and take a stool softener or laxative as needed. ?? You may NOT take an anti-inflammatory medication such as Ibuprofen/Advil/Motrin or Naproxen/Aleve. Contact Information: During clinic hours M-F 8-4:30 please call [phone] If it is after 5:00PM on a weekday or a weekend and it is of an urgent nature please call [phone] and ask for the on-call orthopaedic resident. Call if: 1. You have a fever greater than 101 F or experience chills 2. Increased drainage from incision 3. Redness or extreme swelling around incision 4. Increased pain or change in pain that is not controlled with elevation, ice and your pain medication. 5. Any questions concerns related to surgery Future Appointments Date Time Provider Department Center 03/29/2016 9:35 AM Rabia Bolaños MD [address] CLIN documented in this encounter Medications at Time of Discharge [...] times daily. documented as of this encounter Progress Notes Sherri Toscano RN - 03/14/2016 12:30 PM EST Arrived to [facility] with anesthesia, upper congestion, productive cough with minimal effort, suctionedminimal thick white sputum from mouth. Encouraged to cough. Duoneb given per verbal order from Dr. Mayer. 1117: switched to NRB at [address] Mayer post HHN. 1123: patient states he needs to void. Attempted to void sitting at side of stretcher with two assist, unable. Stood at bedside with two assist, unable to void. Back to stretcher. 1135: upper airway congestion resolved, noted with increase of exp wheeze throughout lung mckee. Dr. Mayer made aware with new order received. 1155- HHN complete. Back on NRB. Patient states needs to void. More awake- to BR via stretcher with two assist. On O2-4l via NC. Spot check in BR- 88%. Back to stretcher and back to bay- Sat 91% on 4L via NC. 1225- patient visiting with friend. Oxygen decreased to 3L via NC. Maintaining sat 91% on 3L. 1230- maintaining sat 91% on 2l. Changed to room air and IS given. 1253- sat fluctuating between 88 and 94% on room air. 1300: patient states that he needs to void. To BR with one stand by assist. Voided without difficulty. 02 sat rechecked once back to bay- 92-95% on room air. Continues to deny surgical pain. States some chronic back discomfort. Appears comfortable. Per Dr. Mayer, ok for discharge. 1315: discharge instructions reviewed with patient and friend. All questions answered. Written instructions given. Noted with dark shadowing under dressing about mid lower arm. Dr. Herman to bedside and reinforced dressing. No new orders received. Patient states ready for discharge. States respiratorystatus is good. 1341: patient to private car with SBA only. Sling and ice in place. All belongings with patient. In no acute distress. Qamar Barksdale MD - 03/13/2016 8:56 PM EST Opioid PDMP 11/29/2015 [place] PDMP Query Date 03/13/2016 Derrick Nolan is being prescribed a prescription opioid for the treatment of acute post-operative pain related to Orthopedic surgery. Derrick Nolan has been advised to take the smallest dose possible to control their pain and as their pain improves to take smaller doses and increase the timebetween doses. In addition to this medication, non-opioid medications have been prescribed for adjunct treatment oftheir pain. Non-pharmacological treatment such as ice, elevation and activity modification have beenrecommended as appropriate. The Acute Opioid Therapy Informed Consent form has been completed and sent to medical records for scanning to chart. documented in this encounter H&P Notes Rabia Bolaños MD - 03/14/2016 8:17 AM EST Patient Name: Derrick Nolan Patient Age: 60 y.o. Birthdate: 1955 Admit date: 03/14/2016 Attending Physician: Rabia Bolaños MD I interviewed and examined Derrick Nolan. There have been no apparent interval changes in his health status since the most recent history and physical was done. RABIA BOLAÑOS MD Rabia Bolaños MD - 03/13/2016 12:22 PM EST Patient Name: Derrick Nolan Patient Age: 60 y.o. Birthdate: 1955 Admit date: (Not on file) Attending Physician: Rabia Bolaños MD See scanned document for pre-procedural H&P completed on 02/17/16. documented in this encounter Miscellaneous Notes Op Note - Rabia Bolaños MD - 03/14/2016 11:06 AM EST [facility] Operative Note Patient Name: Derrick Nolan : [id number] MR#: [id number] Case Date: 03/14/2016 Surgeon: Surgeon(s) and Role: * Rabia Bolaños MD - Primary * Qamar Herman MD - Resident-Poultry Inseminator Preoperative diagnosis: malunion left distal radius fracture Postoperative diagnosis: malunion left distal radius fracture PROCEDURE PERFORMED: Left distal radius osteotomy with allograft bone graft. ANESTHESIA: Left supraclavicular block plus general. OPERATIVE INDICATION: The patient is a 60-year-old male who sustained a left distal radius fracture over a year ago. He has gone on to heal this fracture with nearly 30 degrees of dorsal angulation of his distal radius articular surface, leading to deformity and dysfunction of his wrist. He was brought to the operating room today for a left distal radius osteotomy with allograft bone graft. SUMMARY OF PROCEDURE: After 2 g of intravenous cefazolin were administered and left supraclavicular block plus general anesthesia were performed, the patient's left upper extremity was prepped with Hibiclens scrub and a ChloraPrep. The left upper extremity was then draped in the usual sterile fashion. A preoperative time-out was performed as per [facility] protocol. The left arm was then exsanguinated with an Esmarch bandage. A brachial tourniquet was inflated to 250 mmHg. An incision was made over the dorsum of his left distal radius. Subcutaneous spreading was performed. Care was taken to avoid injury to the dorsal longitudinal draining veins. The extensor retinaculum was exposed. This was incised along the radial edge of the fourth extensor compartment, with the incision being taken proximally through the extensor fascia of the forearm down to the level of the intersection region. The tendons were all inspected and found to be intact. The posterior interosseous nerve was excised and crushed in the floor of the fourth extensor compartment. The site of the fracture was exposed and multiple K-wires were then passed after a 35-degree osteotomy was measured using a protractor. A group of 4 K-wires was passed along the dorsum of the radius through the original fracture line, angled at an angle of approximately 35 degrees relative to the shaft of the radius, in order to create a guide for cutting a 35-degree osteotomy relative to the shaft of the radius through the original fracture site. Four K-wires were placed in this fashion and confirmed to be properly positioned by direct inspection by fluoroscopy. The dorsal cortex of the radius was then cut just along the proximal edge of these K-wires, using the K-wires as a cutting guide. Irrigation was done to keep the saw blade cool. Once the cortex was incised, 2 osteotomes were then used to follow the K-wires as a cutting guide into the osteotomy site until the osteotomes reached the palmar cortex. The osteotomes were then used to fracture the palmar cortex by bringing them perpendicular to the shaft of the radius. This maintained stability of the fracture while creating palmar tilt of the distal radius fragment. The site was copiously irrigated. The osteotomy site was then now packed with crushed cancellous allograft bone. Approximately 15 mL were used. The Hector Leibinger titanium dorsal fixed-angle locking plate was then contoured. The proximal gliding hole in the plate and the next more distal hole were then filled with bone screws in order to contour the plate to the bone. As this happened, this also maintained palmar tilt of the distal radius fragment and prevented dorsal translation. The distal holes in the plate were then filled with locking 2.7 mm screws. The bone was set flush with the plate as it had been previously contoured. The proximal holes in the stem of the plate were filled with a locking screw and a bone screw. The wrist was examined. The DRUJ was stable. Radial height and ulnar neutral variance were achieved, and approximately neutral palmar tilt was ultimately achieved at this point. Copious irrigation was again done and the final bone graft was packed into the osteotomy site and beneath the plate. The extensor retinaculum was then closed by rotating a portion of the radial limb of the extensor retinaculum as a flap to cover overall the extensor tendons without excessive tightness. The skin was closed with 4-0 dyed Vicryl and 4-0 nylon. A sterile soft dressing was applied and the tourniquet was released, with a total tourniquet time of 117 minutes. All digits rapidly became pink and warm with brisk capillary refill. The hardware was examined under fluoroscopy and it was found to be well positioned, and the osteotomy was also well positioned. A palmar plaster splint was applied. He was then extubated and transferred to the recovery room in stable condition. Estimated blood loss was none. IV replacement was 2.3 L of crystalloid. He tolerated the procedure well without apparent complications. Attestation: Case Date: 03/14/2016 I was present and I participated during the entire procedure. RABIA BOLAÑOS MD 03/14/2016 Brief Op Note - Rabia Bolaños MD - 03/14/2016 11:05 AM EST Brief Operative Note Patient Name: Derrick Nolan : [id number] MR#: [id number] Case Date: 03/14/2016 Surgeon: Surgeon(s) and Role: * Rabia Bolaños MD - Primary * Qamar Herman MD - Resident-Poultry Inseminator Preoperative diagnosis: malunion left distal radius fracture Postoperative diagnosis: malunion left distal radius fracture Procedure(s): RADIAL OSTEOTOMY, DISTAL (WRVU 9.09) Anesthesia: General/Block Complications: None Fluids: 2,300cc crystalloid Estimated Blood Loss: * No values recorded between 03/14/2016 8:46 AM and 03/14/2016 10:52 AM * Drains: None Disposition: awakened from anesthesia, extubated and taken to the recovery room in a stable condition, having suffered no apparent untoward event. Condition: doing well without problems Attestation: Case Date: 03/14/2016 I was present and I participated during the entire procedure. (Please see the Surgical Encounter Summary for any Implant and Specimen details pertinent to this patient.) documented in this encounter Plan of Treatment Not on filedocumented as of this encounter Procedures Procedure Name Priority Date/Time Associated Diagnosis Comme nts RADIAL OSTEOTOMY, Routine 03/14/2016 10:54 AM Closed fracture of DISTAL EST distal end of left radius with malunion, unspecified fracture morphology, subsequent encounter XR FLUORO NO RAD Routine 03/14/2016 10:32 AM Resu lts for this <1HR - OR USE EST procedure are in the results section. RADIAL OSTEOTOMY, 03/14/2016 8:21 AM Closed fracture o f DISTAL (WRVU 9.09) EST distal end of left radius with malunion, unspecified fracture morphology, subsequent encounter Case Notes Total tourniquet time: 117 m inutes, IMPLANTABLE DEVICES SCAN 03/14/2016 12:00 AM EST documented in this encounter Results XR Fluoro No Rad <1Hr - OR Use (03/14/2016 10:32 AM EST) Specimen (Source) Anatomical Location Collection Method / Collectio n Time Received Time / Laterality Volume Narrative [facility] - 03/14/2016 10:33 AM EST This order does not need a radiologist i nterpretation. ?? Rabia Bolaños MD IMG FLUORO ORDERABLES Performing Organization Address City/State/ZIP Code Phon e Number [facility] [place], [place] SCAN DOC: IMPLANTABLE DEVICES (03/14/2016 12:00 AM EST) Narrative This result has an attachment that is no t available. Scanning Provider MEDIA MGR SCAN EXT ORDR/RSLT documented in this encounter Visit Diagnoses Diagnosis Closed fracture of distal end of left ra dius with malunion, unspecified fracture morphology, subsequent encounter Closed fracture of distal end of left ra dius with malunion, unspecified fracture morphology, subsequent encounter documented in this encounter Administered Medications Inactive Administered Medications - up to 3 most recent administrations Medication Order MAR Action Action Date Dose Rate Site ipratropium-albuterol (DUONEB) 0.5 Given 03/14/2016 11:03 AM EST 3 mLs mg-3 mg(2.5 mg base)/3 mL nebulizer solution 3 mL 3 mL, Nebulization, ONCE, 1 dose, On Sun03/14/16 at 1100, PACU Recovery, Routine lactated ringers infusion 1,000 mL New Bag 03/14/2016 9:06 AM EST 1,000 mL, at 100 mL/hr, Intravenous, CONTINUOUS, Starting on Sun03/14/16 at 0745, Until Sun03/14/16 at 1347, Day of Surgery (Day of Procedure) New Bag 03/14/2016 7:53 AM EST 1,000 mLs 100 mL/hr midazolam (PF) (VERSED) 1 mg/mL injectio n 1 mg Given 03/14/2016 7:59 AM EST 2 mg 1 mg, Intravenous, EVERY 5 MIN PRN, Starting on Sun03/14/16 at 0727, Until Sun03/14/16 at 1347, Sleep, or prior to injection of local anesthetic, Hold for delirium/agitation. (Maximum dose 5 mg)., Day of Surgery (Day of Procedure), Routine racepinephrine (VAPONEFRIN) 2.25 % Given 03/14/2016 11:35 AM EST 0.5 mLs nebulizer solution 0.5 mL 0.5 mL, Nebulization, ONCE, 1 dose, On Sun03/14/16 at 1130, Routine documented in this encounter Active and Recently Administered Medications Times are shown in EST. Scheduled Medication Order 03/12/2016 03/13/2016 03/14/2016 ipratropium-albuterol (DUONEB) 0.5 mg-3 mg(2.5 mg base)/3 mL nebulizer solution 3 mL (COMPLETED) 1103 (Given - Provid er: Sherri Toscano RN) 3 mL, Nebulization, ONCE, 1 dose, e 03/14/16 at 1100, PACU Junior very, Routine racepinephrine (VAPONEFRIN) 2.25 % nebulizer solution 0.5 mL (CO MPLETED) 1135 (Given - Provider: Sherri Toscano RN) 0.5 mL, Nebulization, ONCE, 1 dose, e 03/14/16 at 1130, Routine Continuous Medication Order 03/12/2016 03/13/2016 03/14/2016 lactated ringers infusion 1,000 mL (CANCELED) 0753 (New Bag - Provider: Alize Cheney RN)0854 (Anesthesia Volume Adjustment - Provider: Hui Phillips CRNA)0906 (New Bag - Provider: Hui Phillips CRNA)0955 (Anesthesia Volume Adjustment - Provider: Hui Phillips CRNA) 1,000 mL, at 100 mL/hr, Intravenous, CON TINUOUS, Starting e 03/14/16 at 0745, Until Sun03/14/16 at 1347, Day of Surgery (Day of Procedure) 1022 (Anesthesia Volume Adjustment - Provider: Hui Phillips CRNA)1045 (Anesthesia Volume Adjustment - Provider: Hui Phillips CRNA) PRN Medication Order 03/12/2016 03/13/2016 03/14/2016 midazolam (PF) (VERSED) 1 mg/mL injection 1 mg (CANCELED) 0759 (Given - Provider: Alize Cheney RN) 1 mg, Intravenous, EVERY 5 MIN PRN, Star ting e 03/14/16 at 0727, Until e 03/14/16 at 1347, Sleep, or prior to injection of local anesthetic, Hold for delirium/agitation. (Maximum dose 5 mg)., Day of Surgery (Day of Procedure), Routine No Frequency Medication Order 03/12/2016 03/13/2016 03/14/2016 ceFAZolin (ANCEF) 2 gram/50 mL infusion (COMPLETED) 0830 (Given - Provider: Hui Phillips CRNA) 1 dose, Starting 03/14/16 at 0812, Un til 03/14/16 at 2014, ALIZE CHAIREZ: cabinet override documented in this encounter Care Teams Gate Services Supervisor Relationship Specialty Start Date End Date Sherri Guzman MD PCP - General Family Medicine 12/21/15 [address] [place] [address] documented as of this encounter
--- OUTSIDE RECORDS SUMMARY | 2021-12-22 15:35 | XMS_ITS | Encounter Summary ---
:1955 Author Organization [facility] [place] [address] Care Team Providers Name Role Phone Unavailable Primary Care Provider Unavailable Encounter Details Date Type Department Care Team Description 12/16/2014 Office Visit General Surgery at Jerson Lorenzana Clos ed fracture of one [facility] rib of right side, One [facility] [address] [place] GENERAL SURGERY [address] [place] [address] [phone] Social History Tobacco Use Types Packs/Day Years [...] documented as of this encounter Progress Notes Jerson Lorenzana MD - 12/19/2014 9:22 PM EDT Seen in follow up after discharge on 11/19. Injuries: Possible IPH Cervical spine tenderness Right 6th rib fracture with effusion L 5th digit distal phalanx fx Distal radius/ulna fx Interval history: Continues with neck pain. No breathing difficulties 63 170/105 Gen: awake and alert no distress CV: hr reg Lungs: Clear CXR: clear A/P Overall doing well from pulmonary standpoint. Still having significant neck pain. - home meds reordered as he needs refills on almost all home medications - 20 oxycodone script written and informed patient that future narcotics will need to be prescribed by PCP or Neurosurgery if main issue is cervical tenderness - has follow up with Ortho today and Neurosurgery next week - Provided with PCP line so that he may establish himself with PCP here as he has transportation difficulties getting to [place] -no need for further Trauma Clinic follow up documented in this encounter Plan of Treatment Not on filedocumented as of this encounter Visit Diagnoses Diagnosis Closed fracture of one rib of right side , sequela documented in this encounter
--- OUTSIDE RECORDS SUMMARY | 2021-12-22 15:35 | XMS_ITS | Encounter Summary ---
:1955 Author Organization [facility] [place] [address] Care Team Providers Name Role Phone Sherri Guzman MD Primary Care Provider Reason for Visit Auth/Cert Specialty Diagnoses / Procedures Referred By Contact Refer red To Contact Diagnoses malunion left distal radius Procedures PRO REPAIR NONUNION RADIUS OR ULNA REPAIR NONUNION OR MALUNION, RADIUS OR ULNA; W/O GRAFT Referral ID Status Reason Start Date Expiration Date Visits Requ ested Visits Authorized [id number] 1 1 Encounter Details Date Type Department Care Team Description 03/14/2016 Hospital Encounter Outpatient Surgery Rabia Bolaños losed fracture of Center Radha Levine MD distal end of left [facility] DR matute, [facility] ORTHOPAEDIC unspecifi ed fracture Drive SURGERY [place], [place] [phone] Social History Tobacco Use Types Packs/Day Years [...] Sign Reading Time Taken Comments Blood Pressure 98/62 03/14/2016 11:15 AM EST Pulse 60 03/14/2016 11:00 AM EST Temperature 36.2 ??C (97.2 ??F) 03/14/2016 10:57 AM EST Respiratory Rate 16 03/14/2016 12:55 PM EST Oxygen Saturation 93% 03/14/2016 12:55 PM EST Inhaled Oxygen Concentration - - Weight 90.7 kg (200 lb) 03/14/2016 7:24 AM EST Height 177.8 cm (5' 10) 03/14/2016 7:24 AM EST Body Mass Index 28.7 03/14/2016 7:24 AM EST documented in this encounter Discharge Instructions Discharge InstructionsAlize Chairez I RN - 03/14/2016 7:48 AM EST General [...] closest emergency room or call the hospital layboy operator at [phone] and ask for physician nutritional assistant covering for your physician. Questions or problems after 5pm or on a weekend: Call the [facility] layboy operator at and ask for the physician nutritional assistant covering for your doctor. Upper Extremity Nerve [...] after hours and ask for the anesthesiologist nutritional assistant. Patient InstructionsQamar Herman MD - 03/14/2016 8:18 [...] During clinic hours M-F 8-4:30 please call [phone] If it is after 5:00PM on a weekday or a weekend and it is of an urgent nature please call [phone] and ask for the on-call orthopaedic resident. [...] Center 03/29/2016 9:35 AM Rabia Bolaños MD [address] CLIN documented in this encounter Medications [...] - 03/14/2016 12:30 PM EST Arrived to [place] [facility] with anesthesia, upper congestion, productive cough [...] 03/13/2016 8:56 PM EST Opioid PDMP 11/29/2015 [place] PDMP Query Date 03/13/2016 Derrick Nolan is [...] Bolaños MD - 03/14/2016 11:06 AM EST [facility] Operative Note Patient Name: Derrick Nolan : [id number] MR#: [id number] Case Date: 03/14/2016 Surgeon: Surgeon(s) and Role: * Rabia Bolaños MD - Primary * Qamar Herman MD - Resident-Director Engineering Preoperative diagnosis: malunion left distal radius fracture [...] A preoperative time-out was performed as per [facility] protocol. The left arm was then exsanguinated [...] bone. Approximately 15 mL were used. The [place] [employer] titanium dorsal fixed-angle locking plate was [...] Operative Note Patient Name: Derrick Nolan : [id number] MR#: [id number] Case Date: 03/14/2016 Surgeon: Surgeon(s) and Role: * Rabia Bolaños MD - Primary * Qamar Herman MD - Resident-Director Engineering Preoperative diagnosis: malunion left distal radius fracture [...] need a radiologist i nterpretation. ?? Rabia BRISCOE FLUORO ORDERABLES Performing Organization Address City/State/ZIP Code Phon e Number [facility] [place], [place] SCAN DOC: IMPLANTABLE DEVICES (03/14/2016 12:00 [...] 7:53 AM EST 1,000 mLs 100 mL/hr racepinephrine (VAPONEFRIN) 2.25 % Given 03/14/2016 11:35 [...] RN) 3 mL, Nebulization, ONCE, 1 dose, Sun03/14/16 at 1100, PACU Junior very, Routine racepinephrine (VAPONEFRIN) 2.25 % nebulizer solution 0.5 mL (CO MPLETED) 1135 (Given - Provider: Sherri Toscano, RN) 0.5 mL, Nebulization, ONCE, 1 dose, 03/14/16 at 1130, Routine Continuous Medication Order 03/12/2016 03/13/2016 03/14/2016 lactated ringers infusion 1,000 mL (CANCELED) 0753 (New Bag - Provider: Alize Chairez I, RN)0854 (Anesthesia Volume Adjustment - Provider: Hui Phillips CRNA)0906 (New Bag - Provider: Hui Phillips CRNA)0955 (Anesthesia Volume Adjustment - Provider: Hui Phillips CRNA) 1,000 mL, at 100 mL/hr, Intravenous, CON TINUOUS, Starting 03/14/16 at 0745, Until Sun03/14/16 at 1347, [...] Star ting e 03/14/16 at 0727, Until 03/14/16 at 1347, Sleep, or prior to injection of local anesthetic, Hold for delirium/agitation. (Maximum dose 5 mg)., Day of Surgery (Day of Procedure), Routine No Frequency Medication Order 03/12/2016 03/13/2016 03/14/2016 ceFAZolin (ANCEF) 2 gram/50 mL infusion (COMPLETED) 0830 (Given - Provider: Hui Phillips CRNA) 1 dose, Starting e 03/14/16 at 0812, Un til e 03/14/16 at 2014, ALIZE CHAIREZ: cabinet override documented in this encounter Care Teams Assembler Crimper Relationship Specialty Start Date End Date Sherri Guzman MD PCP - General Family Medicine 12/21/15 [address] [place] [address] documented as of this encounter
--- OUTSIDE RECORDS SUMMARY | 2021-12-22 15:36 | XMS_ITS | Encounter Summary ---
:1955 Author Organization [facility] [place] [address] Care Team Providers Name Role Phone Sherri Guzman MD Primary Care Provider Encounter Details Date Type Department Care Team Description 11/06/2014 Orders Only General Surgery at D [facility] Ananda Pena MD [facility] [place] [address] GENERAL SURGERY [phone] [place] [address] (Wo rk) Social History Tobacco Use Types Packs/Day Years Used Date Never Assessed Sex Assigned at Date Recorded Not on file documented as of this encounter Plan of Treatment Not on filedocumented as of this encounter Visit Diagnoses Not on filedocumented in this encounter Care Teams Principal Bioinformatics Specialist Relationship Specialty Start Date End Date Sherri Guzman MD PCP - General 04/24/14 12/15/14 [address] [place] [address] documented as of this encounter
--- OUTSIDE RECORDS SUMMARY | 2021-12-22 15:36 | XMS_ITS | Encounter Summary ---
:1955 [place] [address] Care Team Providers Name Role Phone Saul Amaro MD Primary Care Provider [phone] Encounter Details Date Type Department Care Team Description 11/26/2013 Hospital Encounter Radiology Library at [facility] Jared Levine, Wrist pain, left [facility] [address] [place] [address] SURGERY [phone] [place], [place] [address] Social History Tobacco Use Types Packs/Day Years Used Date Never Assessed Sex Assigned at Date Recorded Not on file documented as of this encounter Plan of Treatment Not on filedocumented as of this encounter Procedures Procedure Name Priority Date/Time Associated Diagnosis Comme nts FILM LIBRARY Routine 11/26/2013 12:00 AM Wrist pain, left Resu lts for this STORAGE ONLY DX EDT procedure ar e in [facility] the results section. documented in this encounter Results Film Library- Storage only DX Wrist (11/26/2013 12:00 AM EDT) Specimen (Source) Anatomical Location Collection Method / Collectio n Time Received Time / Laterality Volume Narrative RAD - 11/09/2015 11:36 AM EDT This exam is for storage only and is aut o-finalizing. Jared Bolaños MD G FILM LIBRARY ORDERABLES Performing Organization Address City/State/ZIP Code Phon e Number [place], [place] documented in this encounter Visit Diagnoses Diagnosis Wrist pain, left Pain in joint, forearm documented in this encounter Care Teams Fluorescent Lighting Model Maker Relationship Specialty Start Date End Date Saul Amaro MD PCP - General 01/25/10 04/23/[address] [place] [address] documented as of this encounter
--- OUTSIDE RECORDS SUMMARY | 2021-12-22 15:36 | XMS_ITS | Encounter Summary ---
:1955 [place] [address] Care Team Providers Name Role Phone Sherri Rivas MD Primary Care Provider Reason for Referral Diagnostic X-Ray (Routine) - Closed Specialty Diagnoses / Procedures Referred By Contact Refer red To Contact Radiology Diagnoses Ulnar fracture, unspecified laterality, closed, initial encounter Meredith Jaimes APRN [facility] Rad Xray Procedures XR Hand Diagnostic Minimum 3 Views [address] [place] [address] [place] [address] Referral ID Status Reason Start Date Expiration Date Visits Requ ested Visits Authorized [id number] Closed 12/09/2014 12/09/2015 3 3 Consultation (Routine) - Closed Specialty Diagnoses / Procedures Referred By Contact Refer red To Contact Orthopaedics Diagnoses Pain of cervical spine Meredith Jaimes APRN [facility] [address] [place] [address] [place] [address] Phone: Referral ID Status Reason Start Date Expiration Date Visits V isits Requested Authorized [id number] Closed Consult, 11/12/2014 11/12/2015 3 3 Test & Treat Encounter Details Date Type Department Care Team Description 11/06/2014 - Hospital Encounter 3 [place] Radha HernandezMay vance MD [facility] [place] [address] ST segment depression; 11/19/2014 [facility] Dorian Pena MD [facility] [place] [address] Trauma; Hospital Abnormal brain CT; [facility] T wave in version in EKG; Drive Pain of cervical spine; [place], [place] Ulnar fracture, unspecified laterality, closed, initial encounter [id number] Social History Tobacco Use Types Packs/Day Years [...] Sign Reading Time Taken Comments Blood Pressure 91/58 11/19/2014 9:00 AM EDT Pulse 55 11/19/2014 9:00 AM EDT Temperature 37 ??C (98.6 ??F) 11/19/2014 9:00 AM EDT Respiratory Rate 18 11/19/2014 9:00 AM EDT Oxygen Saturation 97% 11/18/2014 8:24 PM EDT Inhaled Oxygen Concentration - - Weight 86.2 kg (190 lb) 11/10/2014 11:19 AM EDT Height 177.8 cm (5' 10) 11/10/2014 11:19 AM EDT Body Mass Index 27.26 11/10/2014 11:19 AM EDT documented in this encounter Discharge Summaries Meredith Alonso APRN - 11/19/2014 10:54 AM EDT Trauma and Acute Care Surgery Discharge Summary Patient Name: Derrick Hobson Patient Age: 59 y.o. : 1955 Attending Physician: Dorian Pena MD Date of Admission: 11/06/2014 Date of Discharge: 11/19/2014 Primary Diagnosis: Mr. Hobson is a 59yo male admitted to [facility] on 11/06 s/p fall 2 days prior down stairs. Injury Intervention Follow-up Linear area of hyper density in the posterior lateral right frontal lobe, ? Irregular shaped IPH Neurosurgery consulted - MRI images limited due to patient movement but did not show obvious vascular anomaly requiring surgery - Serial neuro checks - Hold all anticoagulation - SBP <160 NS clinic in 4 weeks with repeat head CT prior Cervical spine tenderness [place] J collar at all times - Serial exams Spine center consult in 4 weeks with flex/ex cspine xray prior Mildly displaced right sixth anterolateral rib fracture with small associated effusion Resp Therapy consult - IS q1 hour with assistance Trauma clinic in 4 weeks L small finger distal phalanx fracture Distal radial/ulnar fx Orthopedic surgery consult - Resting volar splint - NWB LUE Orthopedic clinic 4 weeks with xrays prior Other In-hospital Issues: Pain Leukocytosis- resolved Elevated lactate- resolved ETOH withdrawal- resolved O2 dependence- resolved HTN- acute on chronic Deconditioning Qtc prolongation- resolved EKG with T wave inversions inferior and anterolateral leads- resolved Impaired gait Incidental Radiographic Findings: - Patchy areas of hypoattenuation the white matter probably representing small vessel ischemic change - Extensive facet arthropathy is present on the left at C2-C3. - Disc degenerative changes from C4 through C6 with large anterior osteophytes. 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 - Retrolisthesis of L5 on S1. - There is loss disc height at L4-L5 and L5-S1 - A small right basilar calcified granuloma is present measuring 8 mm in size. - Small amount of right paratracheal air seen on series 2, image 8 likely represents a small tracheal diverticulum. - Ectasia of the ascending aorta measuring up to 4 cm, which tapers at the level of the arch. - Mild cardiomegaly. - Moderate coronary artery calcification present. - Calcified small subcarinal lymph nodes noted. - The gallbladder contains multiple cholesterol gallstones without pericholecystic fluid identified. - Prostatic calcifications are identified. - Multilevel degenerative changes of the spine. - Mild retrolisthesis is seen involving L5 and S1. - Multilevel degenerative changes of the spine are identified. - There is atherosclerotic calcification of the abdominal aorta. Secondary Diagnosis: Insomnia Anxiety/Depression Chronic pain Asthma HTN ETOH abuse Allergies: No Known Allergies Operations/Procedures: - None Hospital Course: Derrick Hobson is a 59 y.o. male admitted to [facility] on 11/06 s/p fall 2 days prior down stairs, injuries as discussed above. Neurosurgery was consulted for a linear density that was seen on his initial head CT, and it was treated as an IPH, but concern was had that it may be a congenital vascular anomaly which would not needthe same treatment. A repeat head CT on HD #1 was found to be stable. An MRI was ordered, but given his mental status the study was incomplete. Thus, it was treated as a TBI with holding all anticoagulation, keeping SBP <160, and serial neuro exams. In ordered to maintain a blood pressure less than 160 given TBI, Mr. Hobson was started on his homeIndural. His blood pressure continued to be elevated, so lisinopril 10mg daily was started with goodeffect. Given that this is a new medication this admission, patient should follow up with his PCP within 1-2 weeks of discharge to evaluate the continued need of this medication. A BMP was checked after starting the medication, and his Cr remained stable. On initial CT scan, mr. Hobson's cervical spine had no fractures. However, given mental status the [place] J collar was left in place. Once his mental status cleared, he continued to have right sided cervical paraspinal tenderness on exam. The [place] J collar remained in place, and he is to follow up with the spine center in 4 weeks for clearance with flex/ex xrays prior. Mr. Hobson also had a rib fracture with associated effusion noted on his initial CT scans. A repeatCXR showed no change in his effusion and he was able to be weaned to RA with aggressive pulmonary toilet. He is to follow up in the trauma clinic in 4 weeks with a repeat CXR prior to evaluate effusion. Also during this hospitalization, Mr. Hobson suffered from alcohol withdrawal. He was treated with scheduled and PRN ativan via the Ativan Assessment Scale. He was also treated for his pain adequatelyand kept on his home Trazodone to promote his sleep wake cycle. He gradually did not require the PRNativan via the scale and the scheduled ativan was able to be weaned off. He did continue to be impulsive and slightly confused at night, likely from his TBI and hospital delirium. Upon discharge, his mental status was much improved and his scheduled Ativan was weaned off. On 11/16, Mr. Huttons mental status was much improved, and he began to complain of acute on chronicleft wrist and 5th digit pain. The area was found to have minimal erythema, edema and a bony deformity of the lateral aspect of the wrist. Of note, the patient has had a previous radial/ulnar injury inSeptember of 2013. Xrays were obtained, and a deformity of the distal radius and ulna as well as a 5th digit DIP joint fracture was seen. Orthopedics was consulted and he was placed in a resting volar splint for 4 weeks, when he will have repeat xrays and follow up with orthopedics. He is now NWB on his LUE. Derrick Huttons pain was adequately controlled, he was maintaining adequate oxygen saturation on room air, and was hemodynamically stable. He was tolerating a diet without abdominal complaints and voiding adequately. WBC and Hgb were stable. He was ambulating with a 1-2 person assist. Derrick Hobson was evaluated by the Surgery Team and deemed medically stable for discharge on 11/19/2014. Plan: ?? NEURO: - Pain: Cont scheduled Tylenol; oxycodone to 5-15mg q4 hour PRN pain; Cont lidoderm patches to R chest wall for rib fx--as the patient progresses, suggest changing patches to EMLA cream - Hx Chronic pain: Cont home gabapentin; Hold home flexeril for now - ETOH withdrawal: Scheduled ativan weaned off, Cont MVI daily - Hx Anxiety/Depression: Cont home Celexa, Wellbutrin - Hx Insomnia: Cont home Trazodone 150mg qhs (home dose is 100-250 daily) to promote sleep/wake cycle and Hold home Ambien for now - IPH: Serial neuro checks, Keep SBP <160, f/u with NS in 4 weeks ?? SPINE: - TLS cleared - Cont [place] J collar today given tenderness on exam- pt has appointment in 4 weeks in outpatient spine center ?? PULM: - Hx tobacco abuse: Nicotine patch - Rib fx: Cont aggressive pulmonary toilet - Hx asthma: Cont home QVAR; Cont duonebs q4 hours CARDIAC: - Follow HR, BP trend ?? - HTN: Acute on chronic; Cont home Indural in short acting form (home dose is 360mg SR daily); Cont Lisinopril 10mg daily- this is a new medication started this admission ?? FEN/GI: - Diet: Regular - NBO: Ordered, LBM 11/18 ?? RENAL: - Voiding, Follow UOP ?? HEME: - CBC stable upon discharge ?? ID: - WBC stable upon discharge ?? OTHER: - Cont NWB status to LUE Follow-up- Please see the below appointments that have been made for this patient. In addition, patient should follow up with PCP within 1-2 weeks of discharge to review new medications, incidental findings and hospital stay. Pending Lab Data at Discharge: None. Pertinent Imaging: CT Head & Spine- FINDINGS: CT head: The ventricles are normal in size and contour. There is a linear area of hyperdensity in the posterior lateral right frontal lobe with an appearance is unusual for hemorrhage, and this appears to extend to the ependymal surface of the ventricle. 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 There are patchy areas of hypoattenuation the white matter probably representing small vessel ischemic change. No calvarial fracture. Cervical spine: There is straightening of the normal cervical lordosis. There is no acute cervical spine fracture. Extensive facet arthropathy is present on the left at C2-C3. There are disc degenerative changes from C4 through C6 with large anterior osteophytes. 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 Thoracic spine: Images are limited by lack of small [id number] axial images. Alignment of the thoracic spine appears normal. There is no acute thoracic spine fracture. Lumbar spine: There is retrolisthesis of L5 on S1. Alignment is otherwise preserved. There is loss disc height at L4-L5 and L5-S1. Only 5 mm thick axial slices are available. No acute fracture is identified. IMPRESSION: 1. Linear area of hyperdensity in the posterior lateral right frontal lobe. Differential for this appearance could include a large developmental venous anomaly versus a small parenchymal, unusually-shaped, hemorrhage. MR could distinguish between these two if clinically indicated. 2. No cervical, thoracic, or lumbar spine fracture. LUE XR- FINDINGS: Soft tissue swelling is identified. There is an intra-articular fracture of the DIP joint of the small finger. There is mild displacement of fracture fragments and mild foreshortening. There is joint space loss. Scattered degenerative, and likely remote posttraumatic change of the phalanges, most notable proximal phalanx of the ring finger. Sclerosis and irregularities are noted of the distal metadiaphysis of the radius. Irregularities are noted of the distal ulna with overlying soft tissue swelling, partially characterized. IMPRESSION: 1. Intra-articular small finger DIP joint fracture with mild displacement. 2. Unexpected finding: There is transverse sclerosis of the distal radius and irregularities of the distal ulna, most consistent with distal ulna and radius fractures. 3. Irregularities which appear chronic of the phalanges, most conspicuous of the proximal phalanx of the ring finger. This could represent chronic posttraumatic change, osteochondroma, or other etiology. Discharge Physical Examination: Vital Signs: Last value Range last 24hrs Temperature Temp: 37 ??C (98.6 ??F) Temp: [37 ??C (98.6 ??F)-37.2 ??C (99 ??F)] Heart Rate Heart Rate: 55 Heart Rate: [54-60] Blood Pressure BP: 91/58 mmHg BP: (90-147)/(57-98) Respiratory Rate Resp: 18 Resp: [18-19] SpO2 SpO2: 97 % SpO2: [97 %] Physical Exam: GENERAL: Interactive, appropriate HEENT: Normocephalic, atraumatic; [place] J collar in place LUNG: CTAB CARDIAC: Regular rate and rhythm or without murmur or extra heart sounds ABDOMEN/GI: Obese, soft, NT/ND SKIN: No rashes EXTREM: WWP, L wrist/hand splinted, fingers WWP, edema improved NEURO: Alert, MAEW, follows commands X 4 Current Medications: The following medications have been prescribed for you. If you notice any adverse reactions to your medications, please contact your primary care physician immediately or go to the nearest Emergency Department. Your Medications New Medications Dose Details acetaminophen 325 mg Tab Commonly known as: TYLENOL Take 2 tablets by mouth every 6 hours. 650 mg Quantity: 30 tablet Refills: 1 * bisacodyl 5 mg Tbec Commonly known as: DULCOLAX Take 2 tablets by mouth 2 times daily as needed for Constipation. 10 mg Quantity: 30 tablet Refills: 0 * bisacodyl 10 mg Supp Commonly known as: DULCOLAX Place 1 suppository rectally daily as needed. 10 mg Quantity: 60 suppository Refills: 3 ipratropium-albuterol 0.5 mg-3 mg(2.5 mg base)/3 mL Nebu Commonly known as: DUONEB Take 0.5 mg by nebulization every 4 hours. 3 mL Quantity: 1 vial Refills: 4 lidocaine 5 %(700 mg/patch) Ptmd Commonly known as: LIDODERM Place 1 patch onto the skin daily. 1 patch Quantity: 30 patch Refills: 0 lisinopril 10 mg Tab Commonly known as: PRINIVIL;ZESTRIL Take 1 tablet by mouth daily. 10 mg Quantity: 30 tablet Refills: 12 miconazole 2 % Powd Commonly known as: MICOTIN Apply topically 2 times daily. Quantity: 70 g Refills: 0 multivitamin Tab Commonly known as: THERAGRAN Take 1 tablet by mouth daily. 1 tablet Refills: 0 nicotine 21 mg/24 hr Pt24 Commonly known as: NICODERM CQ Place 1 patch onto the skin daily. 1 patch Quantity: 28 patch Refills: 0 oxyCODONE 5 mg Tab Commonly known as: ROXICODONE Take 1-3 tablets by mouth every 4 hours as needed for Pain (give 5mg for pain 0- 4; give 10mg for pain 5-7; give 15mg for pain 8-10). 5-15 mg Refills: 0 polyethylene glycol 17 gram Pwpk Commonly known as: MIRALAX Take 17 g by mouth 2 times daily. 17 g Quantity: 14 each Refills: 0 propranolol 80 mg Tab Commonly known as: INDERAL Take 1 tablet by mouth 4 times daily. Replaces: propranolol 160 mg Cs24 80 mg Refills: 0 senna-docusate 8.6-50 mg Tab Commonly known as: PERICOLACE Take 4 tablets by mouth 2 times daily. 4 tablet Quantity: 60 tablet Refills: 11 * Notice: This list has 2 medication(s) that are the same as other medications prescribed for you. Read the directions carefully, and ask your doctor or other care provider to review them with you. Continued medications with new dosing Dose Details traZODone 150 mg Tab Commonly known as: DESYREL Take 1 tablet by mouth nightly. What changed: - medication strength - how much to take - when to take this - reasons to take this - additional instructions - Another medication with the same name was removed. Continue taking this medication, and follow thedirections you see here. 150 mg Quantity: 90 tablet Refills: 3 Continued medications, unchanged Dose Details beclomethasone 40 mcg/actuation Aero Commonly known as: QVAR Inhale 2 puffs into the lungs 2 times daily. 2 puff Refills: 0 buPROPion 150 mg Tbsr Commonly known as: WELLBUTRIN SR Take 150 mg by mouth 2 times daily. 150 mg Refills: 0 citalopram 20 mg Tab Commonly known as: CeleXA Take 20 mg by mouth daily. 20 mg Refills: 0 gabapentin 300 mg Cap Commonly known as: NEURONTIN Take 900 mg by mouth 3 times daily. 900 mg Refills: 0 STOPPED Medications cyclobenzaprine 5 mg Tab Commonly known as: FLEXERIL propranolol 160 mg Cs24 Commonly known as: INDERAL LA Replaced by: propranolol 80 mg Tab zolpidem 10 mg Tab Commonly known as: AMBIEN Disposition: To rehab via wheelchair van Scheduled Appointments: The following appointments have been scheduled on your behalf: Future Appointments Date Time Provider Department Center 12/09/2014 9:50 AM Rabia Mcdonald MD [facility] 12/09/2014 10:30 AM Jolly Ruvalcaba APRN [facility] 12/11/2014 1:00 PM [facility] [address] CT [facility] 12/11/2014 2:00 PM Meena Sanchez APRN [facility] 12/11/2014 4:20 PM Jacquelyn Maynard APRN [facility] Outpatient Services/Studies: CT Head Wo Contrast Standing Status: Future Standing Exp. Date: 11/12/15 Question Response Notes Where will study be performed? [facility] Reason for exam and clinical history: s/p fall down stairs; s/p IPH; evaluate IPH; evaluate brain patholog XR Chest Routine PA & Lateral Standing Status: Future Standing Exp. Date: 11/12/15 Question Response Notes Where will study be performed? [facility] Portable exam? No Reason for exam and clinical history: s/p fall down stairs; s/p R rib fx; s/p R pleural effusion; evaluate pulmonary process Stat read required? Yes pager / telephone number to contact [phone] XR Cervical Spine 2 Or 3 Views Standing Status: Future Standing Exp. Date: 11/13/15 Question Response Notes Where will study be performed? [facility] Reason for exam and clinical history: s/p fall, cervical spine pain, PLEASE OBTAIN FLEX/EX FILMS PRIOR TO SPINE CENTER APPOINTMENT XR wrist 2 view Standing Status: Future Standing Exp. Date: 11/20/15 Question Response Notes Where will study be performed? [facility] Laterality Left Reason for exam and clinical history: s/p distal radial/ulnar injury XR Hand Diagnostic Minimum 3 Views Standing Status: Future Standing Exp. Date: 11/20/15 Question Response Notes Where will study be performed? [facility] Laterality Left Reason for exam and clinical history: s/p 5th digit DIP fx; f/u to be associated with ortho f/u appointment Referral to Spine Center Referral Priority: Routine Referral Type: Surgical Referral Reason: Consult, Test & Treat Number of Visits Requested: 3 Special Instructions Given to Patient at Discharge:. An After Visit Summary was printed and given to the patient. Patient Instructions Head Injury Discharge Instructions CALL YOUR DOCTOR IF: 1. You develop a headache that is unrelieved with your prescribed pain medication. 2. Nausea/vomiting that does not stop. 3. Increased drowsiness. 4. Double vision that is new. 5. Unsteadiness or falling. 6. Weakness of your arms or legs. 7. Convulsions/seizures. 8. Persistent clear fluid dripping from your nose/ear. 9. Confusion. 10. Slurred speech or word-finding difficulty that is new or recurs. Call 911 or your local EMS if you have sudden weakness or numbness in your face or one of your limbs, slurred speech, loss of vision, or difficulty speaking. It is important to seek medical attention as soon as possible, as these symptoms could be related to a worsening head injury. ACTIVITY: 11. Increase your activity slowly. 12. You may tire easily, so frequent naps may be necessary. 13. Avoid activities that could lead to a second brain injury, such as contact or recreational sports, until your doctor says you are well enough to do so. 14. Do not drive a car, ride a bike, or operate heavy equipment until your follow up appointment in the trauma and/or neurosurgery clinic because your ability to react may be slowed after a head injury. 15. Talk with your doctor about when you can return to work or school. 16. You may take a shower/bath. Have someone nearby in case you need help. 17. Remember to maintain your NWB status to your left upper extremity until you are seen by orthopedics in follow up. Cervical Collar Instructions: 1. You are being sent home with a hard cervical neck collar. It needs to be worn at all times, untildiscussed with your surgeon at your follow-up appointment. 2. Remember when you are removing the collar to change the dressing or to dry the area after a shower you must stabilize your neck. Have another person hold your head while the front or back of the collar is removed. Your head should be held in place until the collar is reconnected. Remember that whenthe collar is off your head/neck should be held steady. 3. Shower as usual, with collar on. Remove the collar as instructed above. After shower remove residual soap from neck and pat incision dry with clean dry towel. 4. Do not use powder or lotion under collar. 5. Check skin daily for redness, or irritation. Call doctor if this occurs 6. You will receive at least one set of replacement pads. Pads can be hand- washed and hung dry between each use. RECOMMENDATIONS: 18. Your short-term memory may be affected. If it's harder than usual to remember things, write themdown. 19. Avoid alcohol and non-prescribed medications other than acetaminophen (Tylenol) when possible. They can increase drowsiness and sedation. 20. If prescribed opoid medication for pain, do not drive while taking these medications 21. Headache, nausea/vomiting, imbalance, and/or fatigue are common symptoms after suffering a head injury. They will slowly subside over the next several weeks to months. *So take your pain medication as ordered/needed *Taper use of pain medications as pain lessens *Use anti-nausea medication as needed *Slowly increase your activity level as tolerated and take frequent rest periods in-between activities. If the above symptoms persist after 3 months, please call the trauma clinic for further recommendations. DIET: 22. Resume your usual diet. Fresh fruit, vegetables, and fiber containing foods are recommended to avoid constipation. 23. Narcotic pain medication and a change in activity can cause constipation. Stool softeners, mild laxatives, or prunes or prune juice daily, may be used as needed. Anti-coagulation follow up: No aspirin, heparin, NSAIDs or anticoagulants because these medications may increase your risk of worsening your head injury. Your care was managed by the Trauma and Acute Care Surgery Team at [facility]. If you have any questions or concerns, please feel free to contact us. Provider Contact Information: General Surgery Clinic: General Surgery Nurses line: [phone] [facility] (after business hours): General Instructions None Your care was managed by the Trauma and Acute Care Surgery Team at [facility]. If you have any questions or concerns, please feel free to contact us. Provider Contact Information: General Surgery Clinic: Nurses line for questions: [facility] (after business hours): CC: SHERRI RIVAS MD (General) Lori Ruvalcaba APRN Signed: MEREDITH ALONSO APRN Department of Surgery 11/19/2014 documented in this encounter Discharge Instructions Patient InstructionsHuMeredith cuellar APRN - 11/12/2014 1:56 PM EDT Head Injury Discharge Instructions CALL YOUR DOCTOR IF: 1. You develop a headache that is unrelieved with your prescribed pain medication. 2. Nausea/vomiting that does not stop. 3. Increased drowsiness. 4. Double vision that is new. 5. Unsteadiness or falling. 6. Weakness of your arms or legs. 7. Convulsions/seizures. 8. Persistent clear fluid dripping from your nose/ear. 9. Confusion. 10. Slurred speech or word-finding difficulty that is new or recurs. Call 911 or your local EMS if you have sudden weakness or numbness in your face or one of your limbs, slurred speech, loss of vision, or difficulty speaking. It is important to seek medical attention as soon as possible, as these symptoms could be related to a worsening head injury. ACTIVITY: 11. Increase your activity slowly. 12. You may tire easily, so frequent naps may be necessary. 13. Avoid activities that could lead to a second brain injury, such as contact or recreational sports, until your doctor says you are well enough to do so. 14. Do not drive a car, ride a bike, or operate heavy equipment until your follow up appointment in the trauma and/or neurosurgery clinic because your ability to react may be slowed after a head injury. 15. Talk with your doctor about when you can return to work or school. 16. You may take a shower/bath. Have someone nearby in case you need help. 17. Remember to maintain your NWB status to your left upper extremity until you are seen by orthopedics in follow up. Cervical Collar Instructions: 1. You are being sent home with a hard cervical neck collar. It needs to be worn at all times, untildiscussed with your surgeon at your follow-up appointment. 2. Remember when you are removing the collar to change the dressing or to dry the area after a shower you must stabilize your neck. Have another person hold your head while the front or back of the collar is removed. Your head should be held in place until the collar is reconnected. Remember that whenthe collar is off your head/neck should be held steady. 3. Shower as usual, with collar on. Remove the collar as instructed above. After shower remove residual soap from neck and pat incision dry with clean dry towel. 4. Do not use powder or lotion under collar. 5. Check skin daily for redness, or irritation. Call doctor if this occurs 6. You will receive at least one set of replacement pads. Pads can be hand- washed and hung dry between each use. RECOMMENDATIONS: 18. Your short-term memory may be affected. If it's harder than usual to remember things, write themdown. 19. Avoid alcohol and non-prescribed medications other than acetaminophen (Tylenol) when possible. They can increase drowsiness and sedation. 20. If prescribed opoid medication for pain, do not drive while taking these medications 21. Headache, nausea/vomiting, imbalance, and/or fatigue are common symptoms after suffering a head injury. They will slowly subside over the next several weeks to months. *So take your pain medication as ordered/needed *Taper use of pain medications as pain lessens *Use anti-nausea medication as needed *Slowly increase your activity level as tolerated and take frequent rest periods in-between activities. If the above symptoms persist after 3 months, please call the trauma clinic for further recommendations. DIET: 22. Resume your usual diet. Fresh fruit, vegetables, and fiber containing foods are recommended to avoid constipation. 23. Narcotic pain medication and a change in activity can cause constipation. Stool softeners, mild laxatives, or prunes or prune juice daily, may be used as needed. Anti-coagulation follow up: No aspirin, heparin, NSAIDs or anticoagulants because these medications may increase your risk of worsening your head injury. Your care was managed by the Trauma and Acute Care Surgery Team at [facility]. If you have any questions or concerns, please feel free to contact us. Provider Contact Information: General Surgery Clinic: General Surgery Nurses line: [phone] [facility] (after business hours): documented in this encounter Medications at Time [...] Place 1 patch onto 30 patch 0 2 015 12/16/2014 5 %(700 mg/patch) the skin [...] Aerosol daily. documented as of this encounter Progress Notes Sherri Spear RN - 11/19/2014 11:45 AM EDT Patient discharge to rehab. IV removed. My assessment remains unchanged from my previous assessment.Patient denies chest pain, shortness of breath, nausea, dizziness, numbness, and tingling. RN Discussed pain management with patient, pain tolerable. Patient medicated prior to discharge. VSS. Patient has all belongings. Patient received After Visit Summary. These were reviewed. All questions answered. Patient was encouraged to call with questions or concerns. Discharge packet and prescriptions givento ambulance service. Patient discharged to rehab facility via wheelchair van. Report called to rehab facility. SHERRI SPEAR RN Radha Hensley RN - 11/19/2014 10:53 AM EDT Patient Name: Derrick Hobson : 1955 Patient has been offered a swing bed at [facility] for today. Please call hospitalist at [phone]. Please call Nursing Report to , ask for graduate teaching associate. Info to accompany patient: Copies of Medication Administration Records and IV sheets for past two weeks. 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 Patient will be discharged to: [facility] [address] [place], [place] [id number] Plan: [employer]her will be available to the patient and CRC for further assistance. Radha Hensley RN Pager [phone] Meredith Alonso APRN - 11/19/2014 6:05 AM EDT Trauma Daily Progress Note REPAIR TECHNICIAN Team Pager [phone] ID/Mechanism of injury:59 y.o. Male admitted on 11/06/14 s/p fall 2 down stairs on 11/08 Injury Intervention Follow-up Linear area of hyper density in the posterior lateral right frontal lobe, ? Irregular shaped [facility] Neurosurgery consulted - MRI images limited due to patient movement but did not show obvious vascular anomaly requiring surgery - Serial neuro checks - Hold all anticoagulation - SBP <160 NS clinic in 4 weeks Cervical spine tenderness [place] J collar at all times - Serial exams Spine center consult in 4 weeks Mildly displaced right sixth anterolateral rib fracture with small associated effusion Resp Therapy consult - IS q1 hour with assistance Trauma clinic in 4 weeks L small finger distal phalanx fracture Distal radial/ulnar fx Orthopedic surgery consult - Resting volar splint - NWB LUE Orthopedic clinic 2 weeks with xrays prior In Hospital Issues: Pain Leukocytosis- resolved Elevated lactate- resolved ETOH withdrawal- resolved O2 dependence- resolved HTN- acute on chronic Deconditioning Qtc prolongation- resolved EKG with T wave inversions inferior and anterolateral leads- resolved Impaired gait Procedures: None PMHx: Insomnia Anxiety/Depression Chronic pain Asthma HTN ETOH abuse 24 Hour Events/Subjective: - Ativan weaned to nightly - Slept well overnight - Evaluated by PT, due to limitations of LUE weight bearing status and home accomodations, will contto need 24/ supervision Current Medications: ??? miconazole Topical (Top) BID ??? polyethylene glycol 17 g Oral BID ??? traZODone 150 mg Oral Nightly ??? senna-docusate 4 tablet Oral BID ??? lisinopril 10 mg Oral Daily ??? multivitamin 1 tablet Oral Daily ??? ipratropium-albuterol 3 mL Nebulization Q4H ??? lidocaine 1 patch Transdermal Daily And ??? lidocaine 1 patch Transdermal Nightly ??? nicotine 21 mg Transdermal Daily And ??? nicotine 1 patch Transdermal Daily ??? beclomethasone 2 puff Inhalation BID ??? buPROPion 150 mg Oral BID ??? propranolol 80 mg Oral 4 Times Daily ??? citalopram 20 mg Oral Daily ??? gabapentin 900 mg Oral TID ??? acetaminophen 650 mg Oral Q6H ??? sodium chloride 0.9 % 5 mL Intravenous BID Vital Signs: VITALS (24hr Range): Temp Temp: [37.1 ??C (98.8 ??F)-37.2 ??C (99 ??F)] , HR Heart Rate: [54-60] , BP BP: (90-147)/(57-98) , RR Resp: [19] , SpO2 SpO2: [97 %] I/O: Intake/Output Summary (Last 24 hours) at 11/19/14 0734 Last data filed at 11/18/14 1813 Gross per 24 hour Intake 1040 ml Output 0 ml Net 1040 ml Physical Exam: GENERAL: Interactive, appropriate HEENT: Normocephalic, atraumatic; [place] J collar in place LUNG: CTAB CARDIAC: Regular rate and rhythm or without murmur or extra heart sounds ABDOMEN/GI: Obese, soft, NT/ND SKIN: No rashes EXTREM: WWP, L wrist/hand splinted, fingers WWP, edema improved NEURO: Alert, MAEW, follows commands X 4 Labs: No results for input(s): WBC, HGB, HCT, PLATELET, PT, INR, PTT in the last 72 hours. No results for input(s): NA, K, CL, CO2, BUN, CREATININE, GLUCOSE, CALCIUM, MAGNESIUM, PHOS in the last 72 hours. Microbiology: None New Imaging: No new data Assessment: Mr. Hobson is a 59yo male admitted to [facility] on 11/06 after a fall down stairs while intoxicated on 11/04, sustaining injuries as listed below. His stay has been complicated by alcohol withdrawal, requiring scheduled and PRN ativan, as well as the addition of lisinopril for BP control. His behavior/cognition has improved, we are slowly weaning his ativan, will be d/c'd today. He continues to have gait impairment, causing concern for d/c home. Will require 24/7 supervision upon discharge. Injury Linear area of hyperdensity in the posterior lateral right frontal lobe, ? Irregular shaped IPH Cervical spine tenderness Mildly displaced right sixth anterolateral rib fracture with small associated effusion L small finger distal phalanx fracture Other Active Issues: Pain Altered gait Deconditioning Plan: NEURO: - Pain: Cont scheduled Tylenol; oxycodone to 5-15mg q4 hour PRN pain; Cont lidoderm patches to R chest wall for rib fx - Hx Chronic pain: Cont home gabapentin; Hold home flexeril - ETOH withdrawal: Wean scheduled ativan to off today, Cont MVI daily - Hx Anxiety/Depression: Cont home Celexa, Wellbutrin - Hx Insomnia: Cont home Trazodone 150mg qhs (home dose is 100-250 daily) to promote sleep/wake cycle and Hold home Ambien for now - IPH: Serial neuro checks, Keep SBP <160, f/u with NS in 4 weeks SPINE: - TLS cleared - Cont [place] J collar today given tenderness on exam- pt has appointment in 4 weeks in outpatient spine center PULM: - Hx tobacco abuse: Nicotine patch - Rib fx: RT following for aggressive pulm toilet - Hx asthma: Cont home QVAR; Cont q4 hour duonebs CARDIAC: - Follow HR, BP trend - HTN: Acute on chronic; Cont home Indural in short acting form (home dose is 360mg SR daily); Cont Lisinopril 10mg daily- this is a new medication started this admission FEN/GI: - Diet: Regular - NBO: Ordered, LBM 11/18 RENAL: - Voiding, Follow UOP, Cr HEME: - Follow CBC PRN ID: - Follow WBC, temp trend - [place] cx for temp spike >38.5 PT/OT: Ordered PROPHYLAXIS: DVT prophylaxis: Hold s/t head injury, BLE duplex negative on 11/10, 11/17, repeat in 7 days (11/25) GI prophylaxis: None, Tolerating diet and no hx of GERD DISPO/Discharge Planning: Floor status, Full code, referrals in place CONSULTS: Orthopedics: Assessment/Plan: 59 y.o. male with several injuries secondary to fall down stairs on 11/06, now withL wrist and small finger distal phalanx fracture. L distal radius and ulna fx appear chronic in setting of known hx of distal radius fx. L small finger distal phalanx fracture appears most likely to have occurred at time of injury on 11/06. NV intact without significant rotational defect. Placed in splint. Although wrist fracture appears to be old and pt has not gross deficit in strengtht or ROM on exam, pt reporting some pain on ulnar aspect of wrist that is possibly related to tendon (insetting ofdorsal angulation defect of prior fracture). Placed in volar resting splint. Maintain NWB RUE in splint. Will plan to have patient f/u in 1 month with xrays in ortho upper extremity clinic. Surgical txoptions to correct L small finger and L wrist deformities were discussed with patient and patient was advised that if he would like to proceed with surgery to correct these deformities he may contact the clinic or the orthopaedic service at any time, or discuss this at his follow-up appointment. - Activity- NWB RUE - Follow-up- 2 weeks with x-rays in cast/splint prior to appt - Discuss with Dr. Mcdonald I examined Derrick Hobson. He has a malunited left wrist fracture with new onset of pain caused byhis recent fall. He reports that he injured the left small finger DIP joint last year and doesn't believe that this is necessarily an acute injury. He has been placed into a mallet splint and we will do followup xrays in about 4 weeks. We also discussed the option of distal radius osteotomy to addresshis malunion in the future. Neurosurgery: Assessment/Plan:: 59 y.o. male with hyperdensity in right frontal lobe on CT after fall. Neurologically stable. Pleasefollow-up with Jerson Burciaga PA-C in 4 weeks with a repeat CT head. Neurosurgery will sign-off. Please page with any questions or concerns. Active issues to be addressed at discharge/incidental findings: - Patchy areas of hypoattenuation the white matter probably representing small vessel ischemic change - Extensive facet arthropathy is present on the left at C2-C3. - Disc degenerative changes from C4 through C6 with large anterior osteophytes. 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 - Retrolisthesis of L5 on S1. - There is loss disc height at L4-L5 and L5-S1 - A small right basilar calcified granuloma is present measuring 8 mm in size. - Small amount of right paratracheal air seen on series 2, image 8 likely represents a small tracheal diverticulum. - Ectasia of the ascending aorta measuring up to 4 cm, which tapers at the level of the arch. - Mild cardiomegaly. - Moderate coronary artery calcification present. - Calcified small subcarinal lymph nodes noted. - The gallbladder contains multiple cholesterol gallstones without pericholecystic fluid identified. - Prostatic calcifications are identified. - Multilevel degenerative changes of the spine. - Mild retrolisthesis is seen involving L5 and S1. - Multilevel degenerative changes of the spine are identified. - There is atherosclerotic calcification of the abdominal aorta. MEREDITH ALONSO APRN 11/19/2014 Usman Nuñez RN - 11/18/2014 5:37 PM EDT Office of Care Management/Discharge Planning Note Intelligence Intern Usman Nuñez RN, [facility] (pager [phone]) Patient: Derrick Hobson : 1955 (59 y.o.) Home: [facility] [id number]* LOS: 12 days Care reviewed with Alyse Chauhan OT. Reviewed record and interviewed patient. Reviewed CM role and services accepted. ?? Anticipated barriers to discharge: 25/09 supervision is recommended. Referrals are in to [facility] ([place], [place]), [facility] ([place], [place]), and [facility] ([place], [place]). May be ready for rehab as early as 11/19. Requesting [employer] to check for bed availability on 11/19. ?? Identified patient/family concerns r/t discharge: Patient lives alone, in a second floor apartment without elevator access, and without telephone service. ?? Admission status: 11/06/14 IPI Order to Admit is appropriate and signed by attending provider Dr. Dorian Pena. ?? Reason for need for continued hospitalization: pain management, increase ambulation, medication adjustment, neurological monitoring, blood pressure control ?? PCP: SHERRI RIVAS MD (General), Future Appointments Date Time Provider Department Center 12/03/2014 2:30 PM Jolly Ruvalcaba APRN [facility] 12/11/2014 1:[address] [facility] 12/11/2014 2:00 PM Meena Sanchez APRN [facility]Neuro[facility] 3C [facility] 12/11/2014 4:20 PM Jacquelyn Maynard APRN [facility] Spine [facility] Plan: Care Management will continue to monitor progress, follow for continuity of care, and assist with discharge planning. Patient Active Problem List Diagnosis Code ??? Abnormal brain CT 793.0 Magy Parker PRISON KEEPER - 11/18/2014 4:13 PM EDT Physical Therapy Note Treatment # 6 Patient profile: Derrick Hobson is a 59 y.o. right handed male presented to [facility] on 11/06/2014 by Dorian Singleton MD 2 days after he feel down 1/2 flight of stairs, on 11/06. Per general surgery, patient was drinking alcohol as per his usual routine and feel down half a flight of stairs and was knocked unconscious. When he awoke after an unknown length of time he was disoriented to place and situation. Head CT revealed a hyperdensity in (R) frontal lobe concerning for IPH vs DVA vs mass. PT Consult Received 11/07 for initial evaluation. Patient with the following active problems: Patient Active Problem List Diagnosis Code ??? Abnormal brain CT 793.0 PMH: History reviewed. No pertinent past medical history. No past surgical history on file. Social History: Patient lives alone in a single story home in [place], [place]. Pt states that bathroom includes a tub shower with grab bars. Pt has friends who provide rides as needed for shopping / appointments. Pt reports that he sleeps either in reclining chair or in flat bed typically. Stairs: 14 stairs with one rail to enter home Baseline Mobility: independent without use of assistive device; Reports h/o multiple falls; Does notdrive Equipment at home: none Precautions/Special Considerations: Full code; High risk for skin breakdown; At risk to fall; SpinalPrecautions: No bending, twisting, or lifting >5-10 #s, Use log roll for bed mobility, Daphnie perea times; Maintain SBP <160; EtOH Withdrawal - on Ativan assessment scale Activity Orders: Activity as tolerated Diet: Regular Staff communication/Mobility Recommendations: Pt. to utilize rolling walker with gait belt and 1-2 person assist for ambulation with nursing. Pt requires cuing for walker placement with toileting. Bed Mobility: please use log roll 24 Hour Events/Subjective: - Seen by ortho, placed in resting volar splint LUE. 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 Objective: Pt seen for PT today. Pain: right rib pain, left wrist and finger pain. Vital Signs: Last value Heart Rate Heart Rate: 60 Blood Pressure BP: 147/78 mmHg SpO2 SpO2: 97 % Mental Status: alert and orient x 3 Bed Mobility: Supine><Sit with HOB flat, stand by supervision assist with VC for log rolling technique. Transfers: Sit><Stand without AD, stand by supervision but otherwise demonstrated independence today. Gait: Distance: ~300 feet Device used: cane. Level of assist: stand by supervision Gait pattern: short step through ataxic gait at the beginning of gait training. Improving with distance. Stair training: Pt ascended 13 steps with cane in the right hand, 1 step a time and supervision assist. Pt descended 13 steps with hand rail in right hand 1 step at a time, supervision assist. Balance: Sitting: WFL Standing: Fair + Education: patient has been educated on Bed mobility, Transfers, Safety , Gait , Role of therapy, Balance and Discharge planning and needs reinforcement. understanding. Assessment: Pt demonstrated improved tolerance and progress to bed mobility, transfers, gait and stair training activities. Pt level of functional independence is now limited by a left wrist cast/spintand finger splint. This especially is concerning when the hand rail going up to this Pt apartment christiano the left side.The pt would benefit from skilled therapy services to maximize functional independence while in the hospital and to address limitations as noted above. Goals: To be achieved by 11/13/14: 1. Pt. to demonstrate knowledge of safety limitations and precautions and will appropriately requestassistance for functional activities and to mobilize. 2. Pt. to perform bed mobility with independent without bed rail and with HOB flat using log roll. 3. Pt. to perform sit to stand transfers with independent utilizing a rolling walker. 4. Pt. to ambulate 150 feet with a rolling walker, and independent. 5. Pt. to ambulate up/down 14 step/stairs with independent, using one railing with second person to provide assist for walker management. 6. Family or caregiver to demonstrate understanding of therapeutic interventions to support the careof the patient. GOALS UPDATE: The following goals remain appropriate. To be achieved by 11/27/14: 1. Pt. to demonstrate knowledge of safety limitations and precautions and will appropriately requestassistance for functional activities and to mobilize. 2. Pt. to perform bed mobility with independent without bed rail and with HOB flat using log roll. 3. Pt. to perform sit to stand transfers with independent utilizing a rolling walker. 4. Pt. to ambulate 150 feet with a rolling walker, and independent. 5. Pt. to ambulate up/down 14 step/stairs with independent, using one railing with second person to provide assist for walker management. 6. Family or caregiver to demonstrate understanding of therapeutic interventions to support the careof the patient. Plan: Pt to be seen 3-5 times per week for therapy including Bed mobility, Transfers, Assistive device/technique, Stairs, Exercise, Safety , Precautions/protocol, Gait , Balance and Discharge planning. Patient agrees with plan as stated above. Discharge Recommendations: Patient requires ongoing 24/ supervision. Patient would benefit from skilled therapy interventions to promote functional independence and safety while improving activity tolerance. No other consults recommended at this time Equipment needs: Rolling walker. Total time spent with patient: 15 minutes for therapeutic functional Total timed interventions:15 minutes MAGY PARKER PTA, 11/18/2014 Pager: [phone] Physical Therapy Inpatient Rehabilitation Department Alyse Chauhan OTA - 11/18/2014 2:00 PM EDT Occupational Therapy Treatment Note Visit #: 07/12 Patient: Derrick Hobson is a 59 y.o. male patient of Dorian Singleton MD, admitted on 11/06/2014 2 days after he feel down 1/2 flight of stairs, on 11/06. Per general surgery, patient was drinking alcohol as per his usual routine and feel down half a flight of stairs and was knocked unconscious. When he awoke after an unknown length of time he was disoriented to place and situation. Head CT revealed a hyperdensity in (R) frontal lobe concerning for IPH vs DVA vs mass Code Status: full code Activity Orders: as tolerated Precautions: High risk for skin breakdown; At risk to fall; Spinal Precautions: No bending, twisting, or lifting >5-10 #s, Use log roll for bed mobility, [place] J at all times; Maintain SBP <160; EtOH Withdrawal - on Ativan assessment scale; NWB LUE Interval Hx: NWB LUE; now with volar resting splint Subjective: I think I'm going to try and quit. Re: smoking. Objective: Patient seen for therapeutic activities to address functional goals. Cognition / Vision / Behavior ?? Alert, oriented x 4 ?? Cooperative and pleasant ?? Demonstrating increased compliance with spinal precautions though continues to need occasional cue. ?? Reviewed spinal precautions ?? Pt receptive to instructions and recommendations. ?? Pt expressing desire to quit smoking. ?? Demonstrates good insight to impairments. ?? Nervous about going home with limited support and minimal functional use of L hand. Self care / Functional Mobility ?? Pt prepared cold beverage in kitchenette with SBA; vc's needed for safety awareness. ?? Sit to stand with standby assistance to standard cane. ?? Two self-corrected LOB noted due to R LE buckling; pt reports occasional sharp pain in RLE ?? Discussed smoking and drinking cessation; pt interested in information for tobacco cessation but not alcohol. 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 Pt educated on strategies to optimize successful abstinence from both alcohol and tobacco; pt receptive. D/C Planning: ?? Discussed d/c plan. Pt anticipates d/c home with minimal support. ?? Discussed home setup and educated pt on home modification strategies that can promote safety and independence; pt very receptive. ?? Pt agreeable to VNA services Pain: c/o pain in neck x 2 days and having migraine headaches which he has at baseline and are relieved by BP medication; RN notified. Education: Pt/family education ongoing re: Role of OT, participation in ADL's, functional mobility, developing/maintaining self-care management, positioning, safety awareness, cognition, energy conservation, precautions, and discharge planning. Pt will benefit from ongoing education. Staff Communication: Patient status and treatment recommendations discussed with nursing/other staff. Spoke with case management director re: pt's concerns about d/c. Assessment: Pt continues to make progress towards independent self care and functional mobility though he continues to need cues for safety awareness and compliance with spinal precautions. He was receptive to recommendations, home modification, self pacing, and smoking cessation. Pt remains pleasant, cooperative and eager to progress towards PLOF. Pt expressing concern regarding d/c home with limited support and LUE in splint; [facility] notified. Pt would benefit from ongoing OT services to maximize functional mobility and increase independence with ADL's. Discharge Recommendations: Patient requires supervision and assistance for functional mobility and ADL's at this time. Patient would benefit from ongoing OT services in order to progress towards PLOF. If plan for d/c home recommend full services. Daily Schedule / Staff Recommendations: Encourage OOB activity and participation in self-care activities. Promote well-being through leisure and relaxation as available and appropriate. Encourage day/night sleep schedule. Goals: To be achieved by 11/15/14. 1. Pt will demonstrate independent with precautions/restrictions during ADLs. 2. Pt will perform sink level ADLs with supervision only. 3. Pt will dress self independently using adaptive technique/equipment as needed. 4. Pt will ambulate within room for ADLs with assistive device as needed. 5. Pt will demonstrate understanding of mild head injury symptoms and precautions. Plan: Pt to be seen 2-4x per week for therapy including Assistive device/technique, ADL, Safety, Precautions/Protocol, Functional Mobility, Activity pacing/Energy conservation, Recommendations and Discharge planning Eval Date: 11/08/2014 Total time spent with patient: 75 minutes Total timed interventions: 75 minutes; TE-F x 5 Pager: [phone] [facility]ERS/[facility] Occupational Therapy Rehabilitation Department Ramandeep Wilson APRN - 11/18/2014 6:18 AM EDT Trauma Daily Progress Note REPAIR TECHNICIAN Team Pager [phone] ID/Mechanism of injury:59 y.o. Male admitted on 11/06/14 s/p fall 2 down stairs on 11/08 Injury Intervention Follow-up Linear area of hyper density in the posterior lateral right frontal lobe, ? Irregular shaped IPH Neurosurgery consulted - MRI images limited due to patient movement but did not show obvious vascular anomaly requiring surgery - Serial neuro checks - Hold all anticoagulation - SBP <160 NS clinic in 4 weeks Cervical spine tenderness [place] collar at all times - Serial exams Spine center consult in 4 weeks Mildly displaced right sixth anterolateral rib fracture with small associated effusion Resp Therapy consult - IS q1 hour with assistance Trauma clinic in 4 weeks L small finger distal phalanx fracture Orthopedic surgery consult Resting volar splint NWB LUE In Hospital Issues: Pain Leukocytosis- resolved Elevated lactate- resolved ETOH withdrawal- resolved O2 dependence- resolved HTN- acute on chronic Deconditioning Qtc prolongation- resolved EKG with T wave inversions inferior and anterolateral leads- resolved Impaired gait Procedures: None PMHx: Insomnia Anxiety/Depression Chronic pain Asthma HTN ETOH abuse 24 Hour Events/Subjective: - Seen by ortho, placed in resting volar splint LUE Current Medications: ??? LORazepam 0.5 mg Oral BID ??? miconazole Topical (Top) BID ??? polyethylene glycol 17 g Oral BID ??? traZODone 150 mg Oral Nightly ??? senna-docusate 4 tablet Oral BID ??? lisinopril 10 mg Oral Daily ??? multivitamin 1 tablet Oral Daily ??? ipratropium-albuterol 3 mL Nebulization Q4H ??? lidocaine 1 patch Transdermal Daily And ??? lidocaine 1 patch Transdermal Nightly ??? nicotine 21 mg Transdermal Daily And ??? nicotine 1 patch Transdermal Daily ??? beclomethasone 2 puff Inhalation BID ??? buPROPion 150 mg Oral BID ??? propranolol 80 mg Oral 4 Times Daily ??? citalopram 20 mg Oral Daily ??? gabapentin 900 mg Oral TID ??? acetaminophen 650 mg Oral Q6H ??? sodium chloride 0.9 % 5 mL Intravenous BID Vital Signs: VITALS (24hr Range): Temp Temp: [36.8 ??C (98.2 ??F)-37.5 ??C (99.5 ??F)] , HR Heart Rate: [53-58] , BP BP: (100-134)/(63-85) , RR Resp: [16-18] , SpO2 SpO2: [95 %-97 %] I/O: Intake/Output Summary (Last 24 hours) at 11/18/14617 Last data filed at 11/18/14 0617 Gross per 24 hour Intake 2160 ml Output 0 ml Net 2160 ml Physical Exam: GENERAL: Interactive, appropriate HEENT: Normocephalic, atraumatic; [place] J collar in place LUNG: CTAB CARDIAC: Regular rate and rhythm or without murmur or extra heart sounds ABDOMEN/GI: Obese, soft, NT/ND SKIN: No rashes EXTREM: WWP, L wrist/hand splinted, fingers WWP, trace edema NEURO: Alert, MAEW, follows commands X 4 Labs: No results for input(s): WBC, HGB, HCT, PLATELET, PT, INR, PTT in the last 72 hours. No results for input(s): NA, K, CL, CO2, BUN, CREATININE, GLUCOSE, CALCIUM, MAGNESIUM, PHOS in the last 72 hours. Microbiology: None New Imagin/15 L hand: Soft tissue swelling is identified. There is an intra-articular fracture of the DIP joint of the small finger. There is mild displacement of fracture fragments and mild foreshortening. There is joint space loss. Scattered degenerative, and likely remote posttraumatic change of the phalanges, most notable proximal phalanx of the ring finger. Sclerosis and irregularities are noted of the distal metadiaphysis of the radius. Irregularities are noted of the distal ulna with overlying soft tissue swelling, partially characterized. IMPRESSION IMPRESSION: 1. Intra-articular small finger DIP joint fracture with mild displacement. 2. Unexpected finding: There is transverse sclerosis of the distal radius and irregularities of the distal ulna, most consistent with distal ulna and radius fractures. 3. Irregularities which appear chronic of the phalanges, most conspicuous of the proximal phalanx of the ring finger. This could represent chronic posttraumatic change, osteochondroma, or other etiology. Assessment: Mr. Hobson is a 59yo male admitted to [facility] [place] on 11/06 after a fall down stairs while intoxicated on 11/04, sustaining injuries as listed below. His stay has been complicated by alcohol withdrawal, requiring scheduled and PRN ativan, as well as the addition of lisinopril for BP control. His behavior/cognition has improved, we are slowly weaning his ativan. He continues to have gait impairment. Injury Linear area of hyperdensity in the posterior lateral right frontal lobe, ? Irregular shaped IPH Cervical spine tenderness Mildly displaced right sixth anterolateral rib fracture with small associated effusion L small finger distal phalanx fracture Other Active Issues: Pain Altered gait Deconditioning Plan: NEURO: - Pain: Cont scheduled Tylenol; oxycodone to 5-15mg q4 hour PRN pain; Cont lidoderm patches to R chest wall for rib fx - Hx Chronic pain: Cont home gabapentin; Hold home flexeril - ETOH withdrawal: Wean scheduled ativan to 0.5mg QHS today, MVI daily - Hx Anxiety/Depression: Cont home Celexa, Wellbutrin - Hx Insomnia: Cont home Trazodone to 150mg qhs (home dose is 100-250 daily) to promote sleep/wake cycle and Hold home Ambien for now - IPH: Serial neuro checks, Keep SBP <160, f/u with NS in 4 weeks SPINE: - TLS cleared - Cont [place] J collar today given tenderness on exam- pt has appointment in 4 weeks in outpatient spine center PULM: - Hx tobacco abuse: Nicotine patch - Rib fx: RT following for aggressive pulm toilet - Hx asthma: Cont home QVAR; Cont q4 hour duonebs CARDIAC: - Follow HR, BP trend - HTN: Acute on chronic; Cont home Indural in short acting form (home dose is 360mg SR daily); Cont Lisinopril 10mg daily- this is a new medication started this admission FEN/GI: - Diet: Regular - NBO: Ordered, LBM 11/16 RENAL: - Voiding, Follow UOP, Cr HEME: - Follow CBC PRN ID: - Follow WBC, temp trend - [place] cx for temp spike >38.5 PT/OT: Ordered PROPHYLAXIS: DVT prophylaxis: Hold s/t head injury, BLE duplex negative on 11/10, 11/17, repeat in 7 days (11/25) GI prophylaxis: None, Tolerating diet and no hx of GERD DISPO/Discharge Planning: Floor status, Full code, referrals in place CONSULTS: Orthopedics: Assessment/Plan: 59 y.o. male with several injuries secondary to fall down stairs on 11/06, now withL wrist and small finger distal phalanx fracture. L distal radius and ulna fx appear chronic in setting of known hx of distal radius fx. L small finger distal phalanx fracture appears most likely to have occurred at time of injury on 11/06. NV intact without significant rotational defect. Placed in splint. Although wrist fracture appears to be old and pt has not gross deficit in strengtht or ROM on exam, pt reporting some pain on ulnar aspect of wrist that is possibly related to tendon (insetting ofdorsal angulation defect of prior fracture). Placed in volar resting splint. Maintain NWB RUE in splint. Will plan to have patient f/u in 1 month with xrays in ortho upper extremity clinic. Surgical txoptions to correct L small finger and L wrist deformities were discussed with patient and patient was advised that if he would like to proceed with surgery to correct these deformities he may contact the clinic or the orthopaedic service at any time, or discuss this at his follow-up appointment. - Activity- NWB RUE - Follow-up- 2 weeks with x-rays in cast/splint prior to appt - Discuss with Dr. Mcdonald I examined Derrick Hobson. He has a malunited left wrist fracture with new onset of pain caused byhis recent fall. He reports that he injured the left small finger DIP joint last year and doesn't believe that this is necessarily an acute injury. He has been placed into a mallet splint and we will do followup xrays in about 4 weeks. We also discussed the option of distal radius osteotomy to addresshis malunion in the future. Neurosurgery: Assessment/Plan:: 59 y.o. male with hyperdensity in right frontal lobe on CT after fall. Neurologically stable. Pleasefollow-up with Jerson Burciaga PA-C in 4 weeks with a repeat CT head. Neurosurgery will sign-off. Please page with any questions or concerns. Active issues to be addressed at discharge/incidental findings: - Patchy areas of hypoattenuation the white matter probably representing small vessel ischemic change - Extensive facet arthropathy is present on the left at C2-C3. - Disc degenerative changes from C4 through C6 with large anterior osteophytes. 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 - Retrolisthesis of L5 on S1. - There is loss disc height at L4-L5 and L5-S1 - A small right basilar calcified granuloma is present measuring 8 mm in size. - Small amount of right paratracheal air seen on series 2, image 8 likely represents a small tracheal diverticulum. - Ectasia of the ascending aorta measuring up to 4 cm, which tapers at the level of the arch. - Mild cardiomegaly. - Moderate coronary artery calcification present. - Calcified small subcarinal lymph nodes noted. - The gallbladder contains multiple cholesterol gallstones without pericholecystic fluid identified. - Prostatic calcifications are identified. - Multilevel degenerative changes of the spine. - Mild retrolisthesis is seen involving L5 and S1. - Multilevel degenerative changes of the spine are identified. - There is atherosclerotic calcification of the abdominal aorta. RAMANDEEP WILSON APRN 11/18/2014 Alyse Chauhan OTA - 11/17/2014 10:43 AM EDT Occupational Therapy Treatment Note Visit #: 06/12 Patient: Derrick Hobson is a 59 y.o. male patient of Dorian Singleton MD, admitted on 11/06/2014 2 days after he feel down 1/2 flight of stairs, on 11/06. Per general surgery, patient was drinking alcohol as per his usual routine and feel down half a flight of stairs and was knocked unconscious. When he awoke after an unknown length of time he was disoriented to place and situation. Head CT revealed a hyperdensity in (R) frontal lobe concerning for IPH vs DVA vs mass Code Status: full code Activity Orders: as tolerated Precautions: High risk for skin breakdown; At risk to fall; Spinal Precautions: No bending, twisting, or lifting >5-10 #s, Use log roll for bed mobility, [place] at all times; Maintain SBP <160; EtOH Withdrawal - on Ativan assessment scale Subjective: it seizes up on me sometimes. Re: back. Objective: Patient seen for therapeutic activities to address functional goals. Cognition / Vision / Behavior ?? Alert, oriented x 4 ?? Cooperative and pleasant ?? Non-compliant with spinal precautions; needs verbal and tactile cues. ?? Reviewed spinal precautions ?? Decreased problem solving. ?? Pt resistant to following instruction re: body mechanics to compensate for spinal precautions. ?? Pt insistent on carrying multiple drinks in one hand back to his room and using cane in opposite hand vs allowing therapist to assist. Pt ended up dropping cane on kitchen floor and impulsively bentover to retrieve it despite instructions not to bend. ?? Worked with pt on problem solving strategies that allow him to be independent as well as safe. ?? Tendency to minimize deficits, slightly impulsive, cues for safety Activities of Daily Living / Functional Mobility ?? Pt educated on AE use for LB and demonstrated understanding. ?? Pt prepared cold beverage in kitchenette with SBA, vc's for problem solving, safety, and compliance with precautions. ?? Sit to stand with standby assistance and verbal cues. ?? Pt ambulated approx 100 ft with cgA & one self-corrected LOB noted; vc's for self pacing. ?? Pt instructed in collar care with RN; pt receptive to instructions though will benefit from ongoing reinforcement. ?? Pt provided additional chlorine cell tender to keep one in his kitchen/living room at home and one in his bedroom for LB dressing. ?? Pt reports difficulty with toileting hygiene due though declined AE. D/C Planning: ?? Discussed d/c plan. Pt anticipates d/c home with minimal support. ?? Discussed home setup and educated pt on home modification strategies that can promote safety and independence; pt very receptive. ?? Pt agreeable to VNA services Pain: c/o pain in lumbar spine Education: Pt/family education ongoing re: Role of OT, participation in ADL's, functional mobility, developing/maintaining self-care routine, positioning, safety, cognition, delirium prevention, energyconservation, and discharge planning. Pt will benefit from ongoing education. Staff Communication: Patient status and treatment recommendations discussed with nursing/other staff. Assessment: Pt continues to make progress towards independent self care and functional mobility though he continues to need cues for safety awareness and compliance with spinal precautions. He was veryreceptive to recommendations and instruction on AE, home modification, and self pacing. Pt remains pleasant, cooperative and eager to progress towards PLOF. Pt would benefit from ongoing OT services tomaximize functional mobility and increase independence with ADL's. Discharge Recommendations: Patient requires supervision and assistance for functional mobility and ADL's at this time. Patient would benefit from ongoing OT services in order to progress towards PLOF. If plan for d/c home recommend full services. Daily Schedule / Staff Recommendations: Encourage OOB activity and participation in self-care activities. Promote well-being through leisure and relaxation as available and appropriate. Encourage day/night sleep schedule. Goals: To be achieved by 11/15/14. 1. Pt will demonstrate independent with precautions/restrictions during ADLs. 2. Pt will perform sink level ADLs with supervision only. 3. Pt will dress self independently using adaptive technique/equipment as needed. 4. Pt will ambulate within room for ADLs with assistive device as needed. 5. Pt will demonstrate understanding of mild head injury symptoms and precautions. Plan: Pt to be seen 2-4x per week for therapy including Assistive device/technique, ADL, Safety, Precautions/Protocol, Functional Mobility, Activity pacing/Energy conservation, Recommendations and Discharge planning Eval Date: 11/08/2014 Total time spent with patient: 55 minutes Total timed interventions: 55 minutes; TE-F x 4 Pager: [phone] [facility] Occupational Therapy Rehabilitation Department Meredith APRN - 11/17/2014 5:49 AM EDT Trauma Daily Progress Note REPAIR TECHNICIAN Team Pager [phone] ID/Mechanism of injury:59 y.o. Male admitted on 11/06/14 s/p fall 2 down stairs on 11/08 Injury Intervention Follow-up Linear area of hyper density in the posterior lateral right frontal lobe, ? Irregular shaped IPH Neurosurgery consulted - MRI images limited due to patient movement but did not show obvious vascular anomaly requiring surgery - Serial neuro checks - Hold all anticoagulation - SBP <160 NS clinic in 4 weeks Cervical spine tenderness [place] collar at all times - Serial exams Spine center consult in 4 weeks Mildly displaced right sixth anterolateral rib fracture with small associated effusion Resp Therapy consult - IS q1 hour with assistance Trauma clinic in 4 weeks In Hospital Issues: Pain Leukocytosis- resolved Elevated lactate- resolved ETOH withdrawl O2 dependence- resolved HTN- acute on chronic Deconditioning Qtc prolongation- resolved EKG with T wave inversions inferior and anterolateral leads- resolved Impaired gait Procedures: None PMHx: Insomnia Anxiety/Depression Chronic pain Asthma HTN ETOH abuse 24 Hour Events/Subjective: - Left wrist and hand XR with distal radius/ulnar and 5th digit DIP joint fx - Ortho consulted, reqs pending - Cont to be impulsive and intermittently unsteady on his feet Current Medications: ??? LORazepam 0.5 mg Oral BID ??? miconazole Topical (Top) BID ??? polyethylene glycol 17 g Oral BID ??? traZODone 150 mg Oral Nightly ??? senna-docusate 4 tablet Oral BID ??? lisinopril 10 mg Oral Daily ??? multivitamin 1 tablet Oral Daily ??? ipratropium-albuterol 3 mL Nebulization Q4H ??? lidocaine 1 patch Transdermal Daily And ??? lidocaine 1 patch Transdermal Nightly ??? nicotine 21 mg Transdermal Daily And ??? nicotine 1 patch Transdermal Daily ??? beclomethasone 2 puff Inhalation BID ??? buPROPion 150 mg Oral BID ??? propranolol 80 mg Oral 4 Times Daily ??? citalopram 20 mg Oral Daily ??? gabapentin 900 mg Oral TID ??? acetaminophen 650 mg Oral Q6H ??? sodium chloride 0.9 % 5 mL Intravenous BID Vital Signs: VITALS (24hr Range): Temp Temp: [36.8 ??C (98.2 ??F)-37.1 ??C (98.8 ??F)] , HR Heart Rate: [54-61] , BP BP: (110-127)/(63-81) , RR Resp: [16-18] , SpO2 SpO2: [95 %-98 %] I/O: Intake/Output Summary (Last 24 hours) at 11/17/14 0716 Last data filed at 11/17/14 0200 Gross per 24 hour Intake 1680 ml Output 0 ml Net 1680 ml Physical Exam: GENERAL: Interactive, appropriate HEENT: Normocephalic, atraumatic; [place] J collar in place- cervical spine tenderness on exam C2-5 LUNG: CTAB CARDIAC: Regular rate and rhythm or without murmur or extra heart sounds ABDOMEN/GI: Obese, soft, NT/ND SKIN: No rashes EXTREM: WWP, L wrist and 5th digit with edema and slight erythema; Lateral aspect of L wrist with bony deformity NEURO: Alert, MAEW, follows commands X 4 Labs: No results for input(s): WBC, HGB, HCT, PLATELET, PT, INR, PTT in the last 72 hours. No results for input(s): NA, K, CL, CO2, BUN, CREATININE, GLUCOSE, CALCIUM, MAGNESIUM, PHOS in the last 72 hours. Microbiology: None New Imaging: No new data Assessment: Mr. Hobson is a 59yo male admitted to [facility] [place] on 11/06 after a fall down stairs while intoxicated on 11/04, sustaining injuries as listed below. His stay has been complicated by alcohol withdrawal, requiring scheduled and PRN ativan, as well as the addition of lisinopril for BP control. His behavior/cognition has improved, he is requiring less ativan. New L wrist/hand fractures seen on XR aftera possible fall in the bathroom vs acute on chronic injury , will f/u ortho reqs today. Injury Linear area of hyperdensity in the posterior lateral right frontal lobe, ? Irregular shaped IPH Cervical spine tenderness Mildly displaced right sixth anterolateral rib fracture with small associated effusion Other Active Issues: Pain Altered gait Deconditioning Plan: NEURO: - Pain: Cont scheduled Tylenol; oxycodone to 5-15mg q4 hour PRN pain; Cont lidoderm patches to R chest wall for rib fx - Hx Chronic pain: Cont home gabapentin; Hold home flexeril - ETOH withdrawal: Wean scheduled ativan to 0.5mg q8 hours today, MVI daily - Hx Anxiety/Depression: Cont home Celexa, Wellbutrin - Hx Insomnia: Cont home Trazodone to 150mg qhs (home dose is 100-250 daily) to promote sleep/wake cycle and Hold home Ambien for now - IPH: Serial neuro checks, Keep SBP <160, f/u with NS in 4 weeks SPINE: - TLS cleared - Cont [place] J collar today given tenderness on exam- pt has appointment in 4 weeks in outpatient spine center for clearance PULM: - Hx tobacco abuse: Nicotine patch - Rib fx: RT following for aggressive pulm toilet - Hx asthma: Cont home QVAR; Cont q4 hour duonebs CARDIAC: - Follow HR, BP trend - HTN: Acute on chronic; Cont home Indural in short acting form (home dose is 360mg SR daily); Cont Lisinopril 10mg daily- this is a new medication started this admission; Cont Hydralazine and Labetalol PRN SBP >160 FEN/GI: - Diet: Regular - NBO: Ordered, LBM 11/16 RENAL: - Voiding, Follow UOP, Cr HEME: - Follow CBC PRN ID: - Follow WBC, temp trend - [place] cx for temp spike >38.5 ?? OTHER: - L wrist and 5th digit fx: Questionable acute on chronic, Orthopedics consult, reqs pending; NWB for now - Puritis under c-collar: cont miconazole powder bid PT/OT: Ordered PROPHYLAXIS: DVT prophylaxis: Hold s/t head injury, BLE duplex negative on 11/10, repeat in 7 days (~11/17, today) GI prophylaxis: None, Tolerating diet and no hx of GERD DISPO/Discharge Planning: Floor status, Full code, referrals in place CONSULTS: Orthopedics: Pending Neurosurgery: Assessment/Plan:: 59 y.o. male with hyperdensity in right frontal lobe on CT after fall. Neurologically stable. Pleasefollow-up with Jerson Burciaga PA-C in 4 weeks with a repeat CT head. Neurosurgery will sign-off. Please page with any questions or concerns. Active issues to be addressed at discharge/incidental findings: - Patchy areas of hypoattenuation the white matter probably representing small vessel ischemic change - Extensive facet arthropathy is present on the left at C2-C3. - Disc degenerative changes from C4 through C6 with large anterior osteophytes. 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 - Retrolisthesis of L5 on S1. - There is loss disc height at L4-L5 and L5-S1 - A small right basilar calcified granuloma is present measuring 8 mm in size. - Small amount of right paratracheal air seen on series 2, image 8 likely represents a small tracheal diverticulum. - Ectasia of the ascending aorta measuring up to 4 cm, which tapers at the level of the arch. - Mild cardiomegaly. - Moderate coronary artery calcification present. - Calcified small subcarinal lymph nodes noted. - The gallbladder contains multiple cholesterol gallstones without pericholecystic fluid identified. - Prostatic calcifications are identified. - Multilevel degenerative changes of the spine. - Mild retrolisthesis is seen involving L5 and S1. - Multilevel degenerative changes of the spine are identified. - There is atherosclerotic calcification of the abdominal aorta. MEREDITH ALONSO APRN 11/17/2014 Magy Parker PTA - 11/16/2014 4:25 PM EDT Physical Therapy Note 11/16/14 Pt was seen for PT this afternoon. Detail note to follow. Magy Parker PTA Pager # [phone] Magy Parker PTA - 11/16/2014 3:30 PM EDT Physical Therapy Note Treatment # 5 Patient profile: Derrick Hobson is a 59 y.o. right handed male presented to [facility] on 11/06/2014 by Dorian Singleton MD 2 days after he feel down 1/2 flight of stairs, on 11/06. Per general surgery, patient was drinking alcohol as per his usual routine and feel down half a flight of stairs and was knocked unconscious. When he awoke after an unknown length of time he was disoriented to place and situation. Head CT revealed a hyperdensity in (R) frontal lobe concerning for IPH vs DVA vs mass. PT Consult Received 11/07 for initial evaluation. Patient with the following active problems: Patient Active Problem List Diagnosis Code ??? Abnormal brain CT 793.0 PMH: History reviewed. No pertinent past medical history. No past surgical history on file. Social History: Patient lives alone in a single story home in [place], [place]. Pt states that bathroom includes a tub shower with grab bars. Pt has friends who provide rides as needed for shopping / appointments. Pt reports that he sleeps either in reclining chair or in flat bed typically. Stairs: 14 stairs with one rail to enter home Baseline Mobility: independent without use of assistive device; Reports h/o multiple falls; Does notdrive Equipment at home: none Precautions/Special Considerations: Full code; High risk for skin breakdown; At risk to fall; SpinalPrecautions: No bending, twisting, or lifting >5-10 #s, Use log roll for bed mobility, Daphnie perea times; Maintain SBP <160; EtOH Withdrawal - on Ativan assessment scale Activity Orders: Activity as tolerated Diet: Regular Staff communication/Mobility Recommendations: Pt. to utilize rolling walker with gait belt and 1-2 person assist for ambulation with nursing. Pt requires cuing for walker placement with toileting. Bed Mobility: please use log roll 24 Hour Events/Subjective: - No acute issues - Out in hallway walking with cane and assistance - Continues to be impulsive - This AM, patient c/o left wrist and left fifth digit pain - States he lost his balance in the bathroom, but caught himself on the wall while peeing. 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 Objective: Pt seen for PT today. Consulted with RN, Pt is appropriate and cleared to participate in PT. Pain: right rib pain, left wrist and finger pain. Vital Signs: Last value Heart Rate Heart Rate: 58 Blood Pressure BP: 127/69 mmHg SpO2 SpO2: 95 % Mental Status: alert and orient x 3 Bed Mobility: Not witness today. Transfers: Sit><Stand without AD, stand by supervision but otherwise demonstrated independence today. Gait: Distance: ~150 feet Device used: cane. Pt demonstrated sporadic use. Level of assist: variable - stand by Gait pattern: short step through ataxic gait at the beginning of gait training. Pt's gait form improved as he ambulated greater distances. Pt states this is normal secondary to arthritic Stair training: Pt ascended/descended 13 steps with 1 hand rail and supervision assistance. Pt demonstrated increase safety awareness today as compared to previous treatment. Balance: Sitting: WFL Standing: Fair + Education: patient has been educated on Bed mobility, Transfers, Safety , Gait , Role of therapy, Balance and Discharge planning and needs reinforcement. understanding. Patient status, treatment, and mobility recommendations discussed with nursing. Assessment: Pt demonstrated improved tolerance and progress to functional mobility transfers, gait and stair training. As patient ambulated greater distances today his quality of gait and safety awareness improved. Pt's has difficulty scanning the floor for obstacles secondary to c-collar. The pt would benefit from skilled therapy services to maximize functional independence while in the hospital andto address limitations as noted above. Goals: To be achieved by 11/13/14: 1. Pt. to demonstrate knowledge of safety limitations and precautions and will appropriately requestassistance for functional activities and to mobilize. 2. Pt. to perform bed mobility with independent without bed rail and with HOB flat using log roll. 3. Pt. to perform sit to stand transfers with independent utilizing a rolling walker. 4. Pt. to ambulate 150 feet with a rolling walker, and independent. 5. Pt. to ambulate up/down 14 step/stairs with independent, using one railing with second person to provide assist for walker management. 6. Family or caregiver to demonstrate understanding of therapeutic interventions to support the careof the patient. GOALS UPDATE: The following goals remain appropriate. To be achieved by 11/27/14: 1. Pt. to demonstrate knowledge of safety limitations and precautions and will appropriately requestassistance for functional activities and to mobilize. 2. Pt. to perform bed mobility with independent without bed rail and with HOB flat using log roll. 3. Pt. to perform sit to stand transfers with independent utilizing a rolling walker. 4. Pt. to ambulate 150 feet with a rolling walker, and independent. 5. Pt. to ambulate up/down 14 step/stairs with independent, using one railing with second person to provide assist for walker management. 6. Family or caregiver to demonstrate understanding of therapeutic interventions to support the careof the patient. Plan: Continue to ambulate with nursing over the weekend. PT services to resume Thursday 11/16. Pt to be seen 3-5 times per week for therapy including Bed mobility, Transfers, Assistive device/technique, Stairs, Exercise, Safety , Precautions/protocol, Gait , Balance and Discharge planning. Patient agrees with plan as stated above. Discharge Recommendations: Patient requires ongoing 24/ supervision. Patient would benefit from skilled therapy interventions to promote functional independence and safety while improving activity tolerance. No other consults recommended at this time Equipment needs: Rolling walker. Total time spent with patient: 20 minutes for therapeutic functional Total timed interventions:15 minutes MAGY PARKER PTA, 11/17/2014 Pager: [phone] Physical Therapy Inpatient Rehabilitation Department Khushi Mcrae DT - 11/16/2014 2:11 PM EDT Nutrition Services - Follow-up Note Derrick Hobson : 1955 AGE: 59 y.o. Patient Active Problem List Diagnosis Date Noted ??? Hospital-Abnormal brain CT 11/08/2014 Reason for Nutrition Intervention: Follow-up Diet Order: Regular Appetite: Fair Food allergies: NKFA Ht Readings from Last 3 Encounters: 11/10/14 177.8 cm (5' 10) Wt Readings from Last 3 Encounters: 11/10/14 86.183 kg (190 lb) Body mass index is 27.26 kg/(m^2). Vitamins/Minerals: Multivitamin, Folic Acid, Thiamine noted. Assessment: Patient denies further need for nutrition education. He reported a fair appetite withoutdifficulty chewing or swallowing. He did not have questions at this time. Contact Food and Nutritionif questions arise. Nutrition Plan: Continue current diet. Encourage good po intake. Monitor weight. Support and encouragement provided. Nutrition services to follow weekly thru hospital course unless consulted in the interim. IBAN Gaytan Archie Thakur - 11/16/2014 2:02 PM EDT [facility] Encounter Note Patient Name: Derrick Hobson : [id number] MR#: [id number] Admit Date: 11/06/2014 8:31 PM Hospital Day 10 days Narrative: Visited to introduce and assess acceptance of [facility] services. Pt was awake, alert, oriented and in chair. Pt says that he is feeling better slowly and he is living by himself and his sister is helpful. Pt has two sons and shared that they are not close to him it would be result of divorce. Assessment:Patient coping positively with stresses of illness/hospitalization at this time. Pt seemed calm, peaceful and hoping to see doctor today. Pt has purpose of life to get better and to be with his friends and hoping that relations with his sons get better. I ntervention and Outcome: Provided spiritual, emotional support and encouraging presence.[facility] services accepted.Conversation to build trusting relationship.Provided prayer.Provided pastoral presence.Provided spiritual guidance. Follow-up: yes Time in Direct Care:15 Mins Archie Thakur 11/16/2014 , Meredith GalvanCHELLY - 11/16/2014 6:31 AM EDT Trauma Daily Progress Note REPAIR TECHNICIAN Team Pager [phone] ID/Mechanism of injury:59 y.o. Male admitted on 11/06/14 s/p fall 2 down stairs on 11/08 Injury Intervention Follow-up Linear area of hyper density in the posterior lateral right frontal lobe, ? Irregular shaped IPH Neurosurgery consulted - MRI images limited due to patient movement but did not show obvious vascular anomaly requiring surgery - Serial neuro checks - Hold all anticoagulation - SBP <160 NS clinic in 4 weeks Cervical spine tenderness [place] J collar at all times - Serial exams Spine center consult in 4 weeks Mildly displaced right sixth anterolateral rib fracture with small associated effusion Resp Therapy consult - IS q1 hour with assistance Trauma clinic in 4 weeks In Hospital Issues: Pain Leukocytosis- resolved Elevated lactate- resolved ETOH withdrawl O2 dependence- resolved HTN- acute on chronic Deconditioning Qtc prolongation- resolved EKG with T wave inversions inferior and anterolateral leads- resolved Impaired gait Procedures: None PMHx: Insomnia Anxiety/Depression Chronic pain Asthma HTN ETOH abuse 24 Hour Events/Subjective: - No acute issues - Out in hallway walking with cane and assistance - Continues to be impulsive - This AM, patient c/o left wrist and left fifth digit pain - States he lost his balance in the bathroom, but caught himself on the wall while peeing. Current Medications: ??? LORazepam 0.5 mg Oral BID ??? miconazole Topical (Top) BID ??? polyethylene glycol 17 g Oral BID ??? traZODone 150 mg Oral Nightly ??? senna-docusate 4 tablet Oral BID ??? lisinopril 10 mg Oral Daily ??? multivitamin 1 tablet Oral Daily ??? ipratropium-albuterol 3 mL Nebulization Q4H ??? lidocaine 1 patch Transdermal Daily And ??? lidocaine 1 patch Transdermal Nightly ??? nicotine 21 mg Transdermal Daily And ??? nicotine 1 patch Transdermal Daily ??? beclomethasone 2 puff Inhalation BID ??? buPROPion 150 mg Oral BID ??? propranolol 80 mg Oral 4 Times Daily ??? citalopram 20 mg Oral Daily ??? gabapentin 900 mg Oral TID ??? acetaminophen 650 mg Oral Q6H ??? sodium chloride 0.9 % 5 mL Intravenous BID Vital Signs: VITALS (24hr Range): Temp Temp: [36.8 ??C (98.3 ??F)-37.1 ??C (98.7 ??F)] , HR Heart Rate: [53-61] , BP BP: (105-119)/(63-73) , RR Resp: [16-17] , SpO2 SpO2: [95 %-98 %] I/O: Intake/Output Summary (Last 24 hours) at 11/16/14 1538 Last data filed at 11/16/14 1230 Gross per 24 hour Intake 1320 ml Output 0 ml Net 1320 ml Physical Exam: GENERAL: Interactive, appropriate HEENT: Normocephalic, atraumatic; [place] J collar in place- cervical spine tenderness on exam C2-5 LUNG: CTAB CARDIAC: Regular rate and rhythm or without murmur or extra heart sounds ABDOMEN/GI: Obese, soft, NT/ND SKIN: No rashes EXTREM: WWP, L wrist and 5th digit with edema and slight erythema NEURO: Alert, MAEW, follows commands X 4 Labs: No results for input(s): WBC, HGB, HCT, PLATELET, PT, INR, PTT in the last 72 hours. No results for input(s): NA, K, CL, CO2, BUN, CREATININE, GLUCOSE, CALCIUM, MAGNESIUM, PHOS in the last 72 hours. Microbiology: None New Imaging: No new data Assessment: Mr. Hobson is a 59yo male admitted to [facility] on 11/06 after a fall down stairs while intoxicated on 11/04, sustaining injuries as listed below. His stay has been complicated by alcohol withdrawal, requiring scheduled and PRN ativan, as well as the addition of lisinopril for BP control. His behavior/cognition has improved, he is requiring less ativan. He is ready for discharge, we are waiting for a rehab bed. Injury Linear area of hyperdensity in the posterior lateral right frontal lobe, ? Irregular shaped IPH Cervical spine tenderness Mildly displaced right sixth anterolateral rib fracture with small associated effusion Other Active Issues: Pain Altered gait Deconditioning Plan: NEURO: - Pain: Cont scheduled Tylenol; oxycodone to 5-15mg q4 hour PRN pain; Cont lidoderm patches to R chest wall for rib fx - Hx Chronic pain: Cont home gabapentin; Hold home flexeril - ETOH withdrawal: Wean scheduled ativan to 0.5mg q8 hours today, MVI daily - Hx Anxiety/Depression: Cont home Celexa, Wellbutrin - Hx Insomnia: Cont home Trazodone to 150mg qhs today (home dose is 100-250 daily) to promote sleep/wake cycle and Hold home Ambien for now - IPH: Serial neuro checks, Keep SBP <160, f/u with NS in 4 weeks SPINE: - TLS cleared - Cont [place] J collar today given tenderness on exam- pt has appointment in 4 weeks in outpatient spine center for clearance PULM: - Hx tobacco abuse: Nicotine patch - Rib fx: RT following for aggressive pulm toilet - Hx asthma: Cont home QVAR; Cont q4 hour duonebs CARDIAC: - Follow HR, BP trend - HTN: Acute on chronic; Cont home Indural in short acting form (home dose is 360mg SR daily); Cont Lisinopril 10mg daily- this is a new medication started this admission; Cont Hydralazine and Labetalol PRN SBP >160 FEN/GI: - Diet: Regular - NBO: Ordered, LBM 11/12 RENAL: - Voiding, Follow UOP, Cr HEME: - Follow CBC PRN ID: - Follow WBC, temp trend - [place] cx for temp spike >38.5 ?? OTHER: - L wrist and 5th digit pain: Will obtain XR today - Puritis under c-collar: Will order miconazole powder today PT/OT: Ordered PROPHYLAXIS: DVT prophylaxis: Hold s/t head injury, BLE duplex negative on 11/10, repeat in 7 days (~11/17) GI prophylaxis: None, Tolerating diet and no hx of GERD DISPO/Discharge Planning: Floor status, Full code, waiting for placement CONSULTS: Neurosurgery: Assessment/Plan:: 59 y.o. male with hyperdensity in right frontal lobe on CT after fall. Neurologically stable. Pleasefollow-up with Jerson Burciaga PA-C in 4 weeks with a repeat CT head. Neurosurgery will sign-off. Please page with any questions or concerns. Active issues to be addressed at discharge/incidental findings: - Patchy areas of hypoattenuation the white matter probably representing small vessel ischemic change - Extensive facet arthropathy is present on the left at C2-C3. - Disc degenerative changes from C4 through C6 with large anterior osteophytes. 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 - Retrolisthesis of L5 on S1. - There is loss disc height at L4-L5 and L5-S1 - A small right basilar calcified granuloma is present measuring 8 mm in size. - Small amount of right paratracheal air seen on series 2, image 8 likely represents a small tracheal diverticulum. - Ectasia of the ascending aorta measuring up to 4 cm, which tapers at the level of the arch. - Mild cardiomegaly. - Moderate coronary artery calcification present. - Calcified small subcarinal lymph nodes noted. - The gallbladder contains multiple cholesterol gallstones without pericholecystic fluid identified. - Prostatic calcifications are identified. - Multilevel degenerative changes of the spine. - Mild retrolisthesis is seen involving L5 and S1. - Multilevel degenerative changes of the spine are identified. - There is atherosclerotic calcification of the abdominal aorta. MEREDITH ALONSO APRN 11/16/2014 Ramandeep Wilson APRN - 11/15/2014 5:46 AM EDT Trauma Daily Progress Note REPAIR TECHNICIAN Team Pager [phone] ID/Mechanism of injury:59 y.o. Male admitted on 11/06/14 s/p fall 2 down stairs on 11/08 Injury Intervention Follow-up Linear area of hyper density in the posterior lateral right frontal lobe, ? Irregular shaped IPH Neurosurgery consulted - MRI images limited due to patient movement but did not show obvious vascular anomaly requiring surgery - Serial neuro checks - Hold all anticoagulation - SBP <160 NS clinic in 4 weeks Cervical spine tenderness [place] J collar at all times - Serial exams Spine center consult in 4 weeks Mildly displaced right sixth anterolateral rib fracture with small associated effusion Resp Therapy consult - IS q1 hour with assistance Trauma clinic in 4 weeks In Hospital Issues: Pain Leukocytosis- resolved Elevated lactate- resolved ETOH withdrawl O2 dependence- resolved HTN- acute on chronic Deconditioning Qtc prolongation- resolved EKG with T wave inversions inferior and anterolateral leads- resolved Impaired gait Procedures: None PMHx: Insomnia Anxiety/Depression Chronic pain Asthma HTN ETOH abuse 24 Hour Events/Subjective: - Scheduled ativan weaned, tolerated Current Medications: ??? LORazepam 0.5 mg Oral Q6H PRICILLA ??? traZODone 150 mg Oral Nightly ??? senna-docusate 4 tablet Oral BID ??? polyethylene glycol 17 g Oral Daily ??? lisinopril 10 mg Oral Daily ??? multivitamin 1 tablet Oral Daily ??? ipratropium-albuterol 3 mL Nebulization Q4H ??? lidocaine 1 patch Transdermal Daily And ??? lidocaine 1 patch Transdermal Nightly ??? nicotine 21 mg Transdermal Daily And ??? nicotine 1 patch Transdermal Daily ??? beclomethasone 2 puff Inhalation BID ??? buPROPion 150 mg Oral BID ??? propranolol 80 mg Oral 4 Times Daily ??? citalopram 20 mg Oral Daily ??? gabapentin 900 mg Oral TID ??? acetaminophen 650 mg Oral Q6H ??? sodium chloride 0.9 % 5 mL Intravenous BID Vital Signs: VITALS (24hr Range): Temp Temp: [36.9 ??C (98.5 ??F)-37.1 ??C (98.8 ??F)] , HR Heart Rate: [55-64] , BP BP: (105-116)/(54-73) , RR Resp: [16-18] , SpO2 SpO2: [95 %-98 %] I/O: Intake/Output Summary (Last 24 hours) at 11/15/14 0517 Last data filed at 11/15/14 0330 Gross per 24 hour Intake 2320 ml Output 0 ml Net 2320 ml Physical Exam: GENERAL: Interactive, appropriate HEENT: Normocephalic, atraumatic; [place] J collar in place LUNG: CTAB CARDIAC: Regular rate and rhythm or without murmur or extra heart sounds ABDOMEN/GI: Obese, soft, NT/ND SKIN: No rashes EXTREM: WWP, no edema NEURO: AXOX3, MAEW, follows commands X 4 Labs: No results for input(s): WBC, HGB, HCT, PLATELET, PT, INR, PTT in the last 72 hours. No results for input(s): NA, K, CL, CO2, BUN, CREATININE, GLUCOSE, CALCIUM, MAGNESIUM, PHOS in the last 72 hours. Microbiology: None New Imaging: No new data Assessment: Mr. Hobson is a 59yo male admitted to [facility] on 11/06 after a fall down stairs while intoxicated on 11/04, sustaining injuries as listed below. His stay has been complicated by alcohol withdrawal, requiring scheduled and PRN ativan, as well as the addition of lisinopril for BP control. His behavior/cognition has improved, he is requiring less ativan. He is ready for discharge, we are waiting for a rehab bed. Injury Linear area of hyperdensity in the posterior lateral right frontal lobe, ? Irregular shaped IPH Cervical spine tenderness Mildly displaced right sixth anterolateral rib fracture with small associated effusion Other Active Issues: Pain Altered gait Deconditioning Plan: NEURO: - Pain: Cont scheduled Tylenol; oxycodone to 5-15mg q4 hour PRN pain; Cont lidoderm patches to R chest wall for rib fx - Hx Chronic pain: Cont home gabapentin; Hold home flexeril - ETOH withdrawal: Wean scheduled ativan to 0.5mg q8 hours today, MVI daily - Hx Anxiety/Depression: Cont home Celexa, Wellbutrin - Hx Insomnia: Cont home Trazodone to 150mg qhs today (home dose is 100-250 daily) to promote sleep/wake cycle and Hold home Ambien for now - IPH: Serial neuro checks, Keep SBP <160, f/u with NS in 4 weeks SPINE: - TLS cleared - Cont [place] J collar today given tenderness on exam- pt has appointment in 4 weeks in outpatient spine center for clearance PULM: - Hx tobacco abuse: Nicotine patch - Rib fx: RT following for aggressive pulm toilet - Hx asthma: Cont home QVAR; Cont q4 hour duonebs CARDIAC: - Follow HR, BP trend - HTN: Acute on chronic; Cont home Indural in short acting form (home dose is 360mg SR daily); Cont Lisinopril 10mg daily- this is a new medication started this admission; Cont Hydralazine and Labetalol PRN SBP >160 FEN/GI: - Diet: Regular - NBO: Ordered, LBM 11/12- wrote for suppository today RENAL: - Voiding, Follow UOP, Cr HEME: - Follow CBC PRN ID: - Follow WBC, temp trend - [place] cx for temp spike >38.5 PT/OT: Ordered PROPHYLAXIS: DVT prophylaxis: Hold s/t head injury, BLE duplex negative on 11/10, repeat in 7 days (~11/17) GI prophylaxis: None, Tolerating diet and no hx of GERD DISPO/Discharge Planning: Floor status, Full code, waiting for placement CONSULTS: Neurosurgery: Assessment/Plan:: 59 y.o. male with hyperdensity in right frontal lobe on CT after fall. Neurologically stable. Pleasefollow-up with Jerson Burciaga PA-C in 4 weeks with a repeat CT head. Neurosurgery will sign-off. Please page with any questions or concerns. Active issues to be addressed at discharge/incidental findings: - Patchy areas of hypoattenuation the white matter probably representing small vessel ischemic change - Extensive facet arthropathy is present on the left at C2-C3. - Disc degenerative changes from C4 through C6 with large anterior osteophytes. 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 - Retrolisthesis of L5 on S1. - There is loss disc height at L4-L5 and L5-S1 - A small right basilar calcified granuloma is present measuring 8 mm in size. - Small amount of right paratracheal air seen on series 2, image 8 likely represents a small tracheal diverticulum. - Ectasia of the ascending aorta measuring up to 4 cm, which tapers at the level of the arch. - Mild cardiomegaly. - Moderate coronary artery calcification present. - Calcified small subcarinal lymph nodes noted. - The gallbladder contains multiple cholesterol gallstones without pericholecystic fluid identified. - Prostatic calcifications are identified. - Multilevel degenerative changes of the spine. - Mild retrolisthesis is seen involving L5 and S1. - Multilevel degenerative changes of the spine are identified. - There is atherosclerotic calcification of the abdominal aorta. RAMANDEEP WILSON APRN 11/15/2014 Ramandeep Wilson APRN - 11/14/2014 5:49 AM EDT Trauma Daily Progress Note REPAIR TECHNICIAN Team Pager [phone] ID/Mechanism of injury:59 y.o. Male admitted on 11/06/14 s/p fall 2 down stairs on 11/08 Injury Intervention Follow-up Linear area of hyper density in the posterior lateral right frontal lobe, ? Irregular shaped IPH Neurosurgery consulted - MRI images limited due to patient movement but did not show obvious vascular anomaly requiring surgery - Serial neuro checks - Hold all anticoagulation - SBP <160 NS clinic in 4 weeks Cervical spine tenderness [place] J collar at all times - Serial exams Spine center consult in 4 weeks Mildly displaced right sixth anterolateral rib fracture with small associated effusion Resp Therapy consult - IS q1 hour with assistance Trauma clinic in 4 weeks In Hospital Issues: Pain Leukocytosis- resolved Elevated lactate- resolved ETOH withdrawl O2 dependence- resolved HTN- acute on chronic Deconditioning Qtc prolongation- resolved EKG with T wave inversions inferior and anterolateral leads- resolved Impaired gait Procedures: None PMHx: Insomnia Anxiety/Depression Chronic pain Asthma HTN ETOH abuse 24 Hour Events/Subjective: - Non-compliant with c-collar use - Still impulsive with impaired balance Current Medications: ??? traZODone 150 mg Oral Nightly ??? senna-docusate 4 tablet Oral BID ??? polyethylene glycol 17 g Oral Daily ??? LORazepam 1 mg Oral Q6H PRICILLA ??? lisinopril 10 mg Oral Daily ??? multivitamin 1 tablet Oral Daily ??? ipratropium-albuterol 3 mL Nebulization Q4H ??? lidocaine 1 patch Transdermal Daily And ??? lidocaine 1 patch Transdermal Nightly ??? nicotine 21 mg Transdermal Daily And ??? nicotine 1 patch Transdermal Daily ??? beclomethasone 2 puff Inhalation BID ??? buPROPion 150 mg Oral BID ??? propranolol 80 mg Oral 4 Times Daily ??? citalopram 20 mg Oral Daily ??? gabapentin 900 mg Oral TID ??? acetaminophen 650 mg Oral Q6H ??? sodium chloride 0.9 % 5 mL Intravenous BID Vital Signs: VITALS (24hr Range): Temp Temp: [36.4 ??C (97.5 ??F)-37.2 ??C (98.9 ??F)] , HR Heart Rate: [54-69] , BP BP: (120-136)/(65-89) , RR Resp: [16-18] , SpO2 SpO2: [92 %-98 %] I/O: Intake/Output Summary (Last 24 hours) at 11/14/14 0549 Last data filed at 11/14/14 0115 Gross per 24 hour Intake 2390 ml Output 0 ml Net 2390 ml Physical Exam: GENERAL: Interactive, appropriate HEENT: Normocephalic, atraumatic; [place] J collar in place- cervical spine tenderness on exam C2-5 LUNG: CTAB CARDIAC: Regular rate and rhythm or without murmur or extra heart sounds ABDOMEN/GI: Obese, soft, NT/ND SKIN: No rashes EXTREM: WWP, no edema NEURO: Wakes to voice, MAEW, follows commands X 4 Labs: No results for input(s): WBC, HGB, HCT, PLATELET, PT, INR, PTT in the last 72 hours. No results for input(s): NA, K, CL, CO2, BUN, CREATININE, GLUCOSE, CALCIUM, MAGNESIUM, PHOS in the last 72 hours. Microbiology: None New Imaging: No new data Assessment: Mr. Hobson is a 59yo male admitted to [facility] [facility] on 11/06 after a fall down stairs while intoxicated on 11/04, sustaining injuries as listed below. His stay has been complicated by alcohol withdrawal, requiring scheduled and PRN ativan, as well as the addition of lisinopril for BP control. His behavior/cognition has improved, he is requiring less ativan. He is ready for discharge, we are waiting for a rehab bed. Injury Linear area of hyperdensity in the posterior lateral right frontal lobe, ? Irregular shaped IPH Cervical spine tenderness Mildly displaced right sixth anterolateral rib fracture with small associated effusion Other Active Issues: Pain Altered gait Deconditioning Plan: NEURO: - Pain: Cont scheduled Tylenol; oxycodone to 5-15mg q4 hour PRN pain; Cont lidoderm patches to R chest wall for rib fx - Hx Chronic pain: Cont home gabapentin; Hold home flexeril - ETOH withdrawal: Wean scheduled ativan to 0.5mg q6 hours today, MVI daily - Hx Anxiety/Depression: Cont home Celexa, Wellbutrin - Hx Insomnia: Cont home Trazodone to 150mg qhs today (home dose is 100-250 daily) to promote sleep/wake cycle and Hold home Ambien for now - IPH: Serial neuro checks, Keep SBP <160, f/u with NS in 4 weeks SPINE: - TLS cleared - Cont [place] J collar today given tenderness on exam- pt has appointment in 4 weeks in outpatient spine center for clearance PULM: - Hx tobacco abuse: Nicotine patch - Rib fx: RT following for aggressive pulm toilet - Hx asthma: Cont home QVAR; Cont q4 hour duonebs CARDIAC: - Follow HR, BP trend - HTN: Acute on chronic; Cont home Indural in short acting form (home dose is 360mg SR daily); Cont Lisinopril 10mg daily- this is a new medication started this admission; Cont Hydralazine and Labetalol PRN SBP >160 FEN/GI: - Diet: Regular - NBO: Ordered, LBM 11/12 RENAL: - Voiding, Follow UOP, Cr HEME: - Follow CBC PRN ID: - Follow WBC, temp trend - Munguia cx for temp spike >38.5 PT/OT: Ordered PROPHYLAXIS: DVT prophylaxis: Hold s/t head injury, BLE duplex negative on 11/10, repeat in 7 days (~11/17) GI prophylaxis: None, Tolerating diet and no hx of GERD DISPO/Discharge Planning: Floor status, Full code, waiting for placement CONSULTS: Neurosurgery: Assessment/Plan:: 59 y.o. male with hyperdensity in right frontal lobe on CT after fall. Neurologically stable. Pleasefollow-up with Jerson Burciaga PA-C in 4 weeks with a repeat CT head. Neurosurgery will sign-off. Please page with any questions or concerns. Active issues to be addressed at discharge/incidental findings: - Patchy areas of hypoattenuation the white matter probably representing small vessel ischemic change - Extensive facet arthropathy is present on the left at C2-C3. - Disc degenerative changes from C4 through C6 with large anterior osteophytes. 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 - Retrolisthesis of L5 on S1. - There is loss disc height at L4-L5 and L5-S1 - A small right basilar calcified granuloma is present measuring 8 mm in size. - Small amount of right paratracheal air seen on series 2, image 8 likely represents a small tracheal diverticulum. - Ectasia of the ascending aorta measuring up to 4 cm, which tapers at the level of the arch. - Mild cardiomegaly. - Moderate coronary artery calcification present. - Calcified small subcarinal lymph nodes noted. - The gallbladder contains multiple cholesterol gallstones without pericholecystic fluid identified. - Prostatic calcifications are identified. - Multilevel degenerative changes of the spine. - Mild retrolisthesis is seen involving L5 and S1. - Multilevel degenerative changes of the spine are identified. - There is atherosclerotic calcification of the abdominal aorta. RAMANDEEP WILSON APRN 11/14/2014 Adilene Ashford RN - 11/13/2014 11:22 PM EDT Pt observed for the second time with his [place] J collar off. Pt lying on his side, eating. Informed pt (again) of importance of wearing collar at all times and pt stated he can not eat with it on and will replace it when he is done eating. Magy Parker PTA - 11/13/2014 5:20 PM EDT Physical Therapy Note Treatment # 4 Patient profile: Derrick Hobson is a 59 y.o. right handed male presented to [facility] on 11/06/2014 by Dorian Singleton MD 2 days after he feel down 1/2 flight of stairs, on 11/06. Per general surgery, patient was drinking alcohol as per his usual routine and feel down half a flight of stairs and was knocked unconscious. When he awoke after an unknown length of time he was disoriented to place and situation. Head CT revealed a hyperdensity in (R) frontal lobe concerning for IPH vs DVA vs mass. PT Consult Received 11/07 for initial evaluation. Patient with the following active problems: Patient Active Problem List Diagnosis Code ??? Abnormal brain CT 793.0 PMH: History reviewed. No pertinent past medical history. No past surgical history on file. Social History: Patient lives alone in a single story home in [place], [place]. Pt states that bathroom includes a tub shower with grab bars. Pt has friends who provide rides as needed for shopping / appointments. Pt reports that he sleeps either in reclining chair or in flat bed typically. Stairs: 14 stairs with one rail to enter home Baseline Mobility: independent without use of assistive device; Reports h/o multiple falls; Does notdrive Equipment at home: none Precautions/Special Considerations: Full code; High risk for skin breakdown; At risk to fall; SpinalPrecautions: No bending, twisting, or lifting >5-10 #s, Use log roll for bed mobility, Daphnie perea times; Maintain SBP <160; EtOH Withdrawal - on Ativan assessment scale Activity Orders: Activity as tolerated Diet: Regular Staff communication/Mobility Recommendations: Pt. to utilize rolling walker with gait belt and 1-2 person assist for ambulation with nursing. Pt requires cuing for walker placement with toileting. Bed Mobility: please use log roll 24 Hour Events/Subjective: - EKG with t wave inversion improvement - Trazodone increased to 150mg nightly with improvement in sleep - AAS d/c'd, no additional PRN ativan needed Subjective: ???I can't get anyone to give me the same answers to my questions.?? Objective: Pt seen for PT today. Consulted with RN, Pt is appropriate and cleared to participate in PT. Pain: right rib pain with increased coughing. Vital Signs: Last value Heart Rate Heart Rate: 64 Blood Pressure BP: 125/65 mmHg SpO2 SpO2: 97 % Mental Status: Somewhat drowsy, oriented to month, place, situation Bed Mobility: Supine><Sit with HOB flat, supervision assist. Transfers: Sit to Stand: supervision/contact guard. Stand to Sit: supervision/contact guard. Gait: Distance: ~150 feet Device used: Cane Level of assist: variable - contact guard. Gait pattern: short step through ataxic gait. Stair training: Pt ascended 13 steps with a 1 hand rail and 1 cane with difficulty to coordinate andusing the cane properly. Contact guard gait belt assist of 1. Pt descended 13 steps with 2 hand rails with min/mod assist with the tendency to lean forward. Balance: Sitting: WFL Standing: Impaired, impulsive contributing to poor dynamic safety at this time Education: patient has been educated on Bed mobility, Transfers, Safety , Gait , Role of therapy, Balance and Discharge planning and needs reinforcement. understanding. Patient status, treatment, and mobility recommendations discussed with nursing. Assessment: Pt demonstrated fair tolerance and progress to bed mobility, transfers, gait and stair training activities. Gait was ataxic gait and poor motor control during stair training .The pt would benefit from skilled therapy services to maximize functional independence while in the hospital and toaddress limitations as noted above. Goals: To be achieved by 11/13/14: 1. Pt. to demonstrate knowledge of safety limitations and precautions and will appropriately requestassistance for functional activities and to mobilize. 2. Pt. to perform bed mobility with independent without bed rail and with HOB flat using log roll. 3. Pt. to perform sit to stand transfers with independent utilizing a rolling walker. 4. Pt. to ambulate 150 feet with a rolling walker, and independent. 5. Pt. to ambulate up/down 14 step/stairs with independent, using one railing with second person to provide assist for walker management. 6. Family or caregiver to demonstrate understanding of therapeutic interventions to support the careof the patient. Plan: Continue to ambulate with nursing over the weekend. PT services to resume Thursday 11/16. Pt to be seen 3-5 times per week for therapy including Bed mobility, Transfers, Assistive device/technique, Stairs, Exercise, Safety , Precautions/protocol, Gait , Balance and Discharge planning. Patient agrees with plan as stated above. Discharge Recommendations: Patient requires ongoing 24/7 supervision. Patient would benefit from skilled therapy interventions to promote functional independence and safety while improving activity tolerance. No other consults recommended at this time Equipment needs: Rolling walker. Total time spent with patient: 25 minutes for therapeutic functional Total timed interventions:25 minutes MAGY PARKER PTA, 11/13/2014 Pager: [phone] Physical Therapy Inpatient Rehabilitation Department Associated attestation - Patsy Clements PT - 11/16/2014 10:06 AM EDT GOALS UPDATE: The following goals remain appropriate. To be achieved by 11/27/14: 1. Pt. to demonstrate knowledge of safety limitations and precautions and will appropriately requestassistance for functional activities and to mobilize. 2. Pt. to perform bed mobility with independent without bed rail and with HOB flat using log roll. 3. Pt. to perform sit to stand transfers with independent utilizing a rolling walker. 4. Pt. to ambulate 150 feet with a rolling walker, and independent. 5. Pt. to ambulate up/down 14 step/stairs with independent, using one railing with second person to provide assist for walker management. 6. Family or caregiver to demonstrate understanding of therapeutic interventions to support the careof the patient. Patsy Alcaraz, PT Pager #[phone] Physical Therapy Inpatient Rehabilitation , Meredith Galvan APRN - 11/13/2014 5:57 AM EDT Trauma Daily Progress Note REPAIR TECHNICIAN Team Pager [phone] ID/Mechanism of injury:59 y.o. Male admitted on 11/06/14 s/p fall 2 down stairs on 11/08 Injury Intervention Follow-up Linear area of hyper density in the posterior lateral right frontal lobe, ? Irregular shaped IPH Neurosurgery consulted - MRI images limited due to patient movement but did not show obvious vascular anomaly requiring surgery - Serial neuro checks - Hold all anticoagulation - SBP <160 NS clinic in 4 weeks Cervical spine tenderness [place] J collar at all times - Serial exams Spine center consult in 4 weeks Mildly displaced right sixth anterolateral rib fracture with small associated effusion Resp Therapy consult - IS q1 hour with assistance Trauma clinic in 4 weeks In Hospital Issues: Pain Leukocytosis- resolved Elevated lactate- resolved ETOH withdrawl O2 dependence- resolved HTN- acute on chronic Deconditioning Qtc prolongation- resolved EKG with T wave inversions inferior and anterolateral leads Procedures: None PMHx: Insomnia Anxiety/Depression Chronic pain Asthma HTN ETOH abuse 24 Hour Events/Subjective: - EKG with t wave inversion improvement - Trazodone increased to 150mg nightly with improvement in sleep - AAS d/c'd, no additional PRN ativan needed Current Medications: ??? traZODone 150 mg Oral Nightly ??? senna-docusate 4 tablet Oral BID ??? polyethylene glycol 17 g Oral Daily ??? LORazepam 1 mg Oral Q6H PRICILLA ??? lisinopril 10 mg Oral Daily ??? multivitamin 1 tablet Oral Daily ??? ipratropium-albuterol 3 mL Nebulization Q4H ??? lidocaine 1 patch Transdermal Daily And ??? lidocaine 1 patch Transdermal Nightly ??? nicotine 21 mg Transdermal Daily And ??? nicotine 1 patch Transdermal Daily ??? beclomethasone 2 puff Inhalation BID ??? buPROPion 150 mg Oral BID ??? propranolol 80 mg Oral 4 Times Daily ??? citalopram 20 mg Oral Daily ??? gabapentin 900 mg Oral TID ??? acetaminophen 650 mg Oral Q6H ??? sodium chloride 0.9 % 5 mL Intravenous BID Vital Signs: VITALS (24hr Range): Temp Temp: [36.2 ??C (97.2 ??F)-37.2 ??C (99 ??F)] , HR Heart Rate: [54-67] , BP BP: (120-133)/(71-91) , RR Resp: [16-18] , SpO2 SpO2: [92 %-98 %] I/O: Intake/Output Summary (Last 24 hours) at 09/11/15 1226 Last data filed at 11/13/14 1223 Gross per 24 hour Intake 2630 ml Output 0 ml Net 2630 ml Physical Exam: GENERAL: Interactive, appropriate HEENT: Normocephalic, atraumatic; [place] J collar in place- cervical spine tenderness on exam C2-5 LUNG: CTAB CARDIAC: Regular rate and rhythm or without murmur or extra heart sounds ABDOMEN/GI: Obese, soft, NT/ND SKIN: No rashes EXTREM: WWP, no edema NEURO: Wakes to voice, MAEW, follows commands X 4 Labs: No results for input(s): WBC, HGB, HCT, PLATELET, PT, INR, PTT in the last 72 hours. Recent Labs 11/11/14 0349 NA 137 K 3.7 CL 96* CO2 28 BUN 11 CREATININE 0.79* GLUCOSE 95 CALCIUM 9.3 Microbiology: None New Imaging: No new data Assessment: Mr. Hobson is a 59yo male admitted to [facility] on 11/06 after a fall down stairs while intoxicated on 11/04, sustaining injuries as listed below. His stay has been complicated by alcohol withdrawal, requiring scheduled and PRN ativan, as well as the addition of lisinopril for BP control. His behavior/cognition has improved in the last 48hrs, likely now more of a delirium picture rather than withdrawal. Continuing to work on cognition and gait with PT/OT. Injury Linear area of hyperdensity in the posterior lateral right frontal lobe, ? Irregular shaped IPH Cervical spine tenderness Mildly displaced right sixth anterolateral rib fracture with small associated effusion Other Active Issues: Pain ETOH withdrawl HTN- acute on chronic Altered gait- chronic Deconditioning Plan: NEURO: - Pain: Cont scheduled Tylenol; oxycodone to 5-15mg q4 hour PRN pain; Cont lidoderm patches to R chest wall for rib fx - Hx Chronic pain: Cont home gabapentin; Hold home flexeril - ETOH withdrawal: Continue with scheduled ativan 1mg q6 hours today, may be able to wean to q8 hours tomorrow, MVI daily - Hx Anxiety/Depression: Cont home Celexa, Wellbutrin - Hx Insomnia: Cont home Trazodone to 150mg qhs today (home dose is 100-250 daily) to promote sleep/wake cycle and Hold home Ambien for now - IPH: Keep SBP <160, Serial neuro checks; f/u with NS in 4 weeks SPINE: - TLS cleared in trauma bay - Cont [place] J collar today given tenderness on exam and mental status; Reassess daily--pt has appointment in 4 weeks in outpatient spine center for clearance PULM: - Hx tobacco abuse: Nicotine patch - Rib fx: RT following for aggressive pulm toilet - Hx asthma: Cont home QVAR; Cont q4 hour duonebs CARDIAC: - EKG with T wave inversions inferior and anterolateral leads- Cardiac enzymes x3 flat, Repeat EKG improved; Likely demand from previous HTN - Follow HR, BP trend - HTN: Acute on chronic; Cont home Indural in short acting form (home dose is 360mg SR daily); Cont Lisinopril 10mg daily- this is a new medication started this admission; Cont Hydralazine and Labetalol PRN SBP >160 FEN/GI: - Diet: Regular - NBO: Ordered, LBM 11/12 - LFTs WNL 11/07 RENAL: - Voiding, Follow UOP, Cr - Monitor lytes, replete as indicated HEME: - Follow CBC PRN ID: - Follow WBC, temp trend - [place] cx for temp spike >38.5 PT/OT: Ordered PROPHYLAXIS: DVT prophylaxis: Hold s/t head injury, BLE duplex negative on 11/10, repeat in 7 days (~11/17) GI prophylaxis: None, Tolerating diet and no hx of GERD DISPO/Discharge Planning: Floor status, Full code, will discuss rehab options with CRC today CONSULTS: Neurosurgery: Assessment/Plan:: 59 y.o. male with hyperdensity in right frontal lobe on CT after fall. Neurologically stable. Pleasefollow-up with Jerson Burciaga PA-C in 4 weeks with a repeat CT head. Neurosurgery will sign-off. Please page with any questions or concerns. Active issues to be addressed at discharge/incidental findings: - Patchy areas of hypoattenuation the white matter probably representing small vessel ischemic change - Extensive facet arthropathy is present on the left at C2-C3. - Disc degenerative changes from C4 through C6 with large anterior osteophytes. 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 - Retrolisthesis of L5 on S1. - There is loss disc height at L4-L5 and L5-S1 - A small right basilar calcified granuloma is present measuring 8 mm in size. - Small amount of right paratracheal air seen on series 2, image 8 likely represents a small tracheal diverticulum. - Ectasia of the ascending aorta measuring up to 4 cm, which tapers at the level of the arch. - Mild cardiomegaly. - Moderate coronary artery calcification present. - Calcified small subcarinal lymph nodes noted. - The gallbladder contains multiple cholesterol gallstones without pericholecystic fluid identified. - Prostatic calcifications are identified. - Multilevel degenerative changes of the spine. - Mild retrolisthesis is seen involving L5 and S1. - Multilevel degenerative changes of the spine are identified. - There is atherosclerotic calcification of the abdominal aorta. MEREDITH ALONSO APRN 11/13/2014 Magy Parker, PRISON KEEPER - 11/12/2014 4:30 PM EDT Physical Therapy Note Treatment # 3 Patient profile: Derrick Hobson is a 59 y.o. right handed male presented to [facility] on 11/06/2014 by Dorian Singleton MD 2 days after he feel down 1/2 flight of stairs, on 11/06. Per general surgery, patient was drinking alcohol as per his usual routine and feel down half a flight of stairs and was knocked unconscious. When he awoke after an unknown length of time he was disoriented to place and situation. Head CT revealed a hyperdensity in (R) frontal lobe concerning for IPH vs DVA vs mass. PT Consult Received 11/07 for initial evaluation. Patient with the following active problems: Patient Active Problem List Diagnosis Code ??? Abnormal brain CT 793.0 PMH: History reviewed. No pertinent past medical history. No past surgical history on file. Social History: Patient lives alone in a single story home in [place], [place]. Pt states that bathroom includes a tub shower with grab bars. Pt has friends who provide rides as needed for shopping / appointments. Pt reports that he sleeps either in reclining chair or in flat bed typically. Stairs: 14 stairs with one rail to enter home Baseline Mobility: independent without use of assistive device; Reports h/o multiple falls; Does notdrive Equipment at home: none Precautions/Special Considerations: Full code; High risk for skin breakdown; At risk to fall; SpinalPrecautions: No bending, twisting, or lifting >5-10 #s, Use log roll for bed mobility, [place] Cole brit times; Maintain SBP <160; EtOH Withdrawal - on Ativan assessment scale Activity Orders: Activity as tolerated Diet: Regular Staff communication/Mobility Recommendations: Pt. to utilize rolling walker with gait belt and 1-2 person assist for ambulation with nursing. Pt requires cuing for walker placement with toileting. Bed Mobility: please use log roll 24 Hour Events/Subjective: - EKG obtained, t waves inverted in inferior and anterolateral leads - Troponin x3 flat, likely demand ischemia from earlier HTN - +BM - Scored once overnight only on AAS for confusion and insomnia Subjective: ???I can't get anyone to give me the same answers to my questions.?? Objective: Pt seen for PT today. Consulted with RN, Pt is appropriate and cleared to participate in PT. Pt was fitted and issued a cane. Pain: Tolerable Vital Signs: Last value Heart Rate Heart Rate: 54 Blood Pressure BP: 118/82 mmHg SpO2 SpO2: 94 % Mental Status: Somewhat drowsy, oriented to month, place, situation Bed Mobility: Not observed. Transfers: Sit to Stand: contact guard. Stand to Sit: contact guard. Gait: Distance: ~150 feet Device used: Cane Level of assist: variable - contact guard. Gait pattern: short step through with tendency to lean heavily side to side. Balance: Sitting: WFL Standing: Impaired, impulsive contributing to poor dynamic safety at this time Education: patient has been educated on Bed mobility, Transfers, Safety , Gait , Role of therapy, Balance and Discharge planning and needs reinforcement. understanding. Patient status, treatment, and mobility recommendations discussed with nursing. Assessment: Pt tolerated PT activities fairly well. Pt is making fair progress with transfers and gait activities. Pt was able to ambulate with a cane without veering to the left requiring verbal intervention. Pt continues to require supervision/contact guard assist for transfers and gait activities.The pt would benefit from skilled therapy services to maximize functional independence while in the hospital and to address limitations as noted above. Goals: To be achieved by 11/13/14: 1. Pt. to demonstrate knowledge of safety limitations and precautions and will appropriately requestassistance for functional activities and to mobilize. 2. Pt. to perform bed mobility with independent without bed rail and with HOB flat using log roll. 3. Pt. to perform sit to stand transfers with independent utilizing a rolling walker. 4. Pt. to ambulate 150 feet with a rolling walker, and independent. 5. Pt. to ambulate up/down 14 step/stairs with independent, using one railing with second person to provide assist for walker management. 6. Family or caregiver to demonstrate understanding of therapeutic interventions to support the careof the patient. Plan: PT services to resume Friday 11/10. Pt to be seen 3-5 times per week for therapy including Bed mobility, Transfers, Assistive device/technique, Stairs, Exercise, Safety , Precautions/protocol, Gait , Balance and Discharge planning. Patient agrees with plan as stated above. Discharge Recommendations: Patient requires ongoing 25/09 supervision. Patient would benefit from skilled therapy interventions to promote functional independence and safety while improving activity tolerance. No other consults recommended at this time Equipment needs: Rolling walker. Total time spent with patient: 15 minutes for therapeutic functional Total timed interventions:10 minutes MAGY PARKER PTA, 11/12/2014 Pager: [phone] Physical Therapy Inpatient Rehabilitation Department Luisa Colón OTA - 11/12/2014 2:38 PM EDT Occupational Therapy Treatment Note Visit #: 05/12 Patient: Derrick Hobson is a 59 y.o. male patient of Dorian Singleton MD, admitted on 11/06/2014 2 days after he feel down 1/2 flight of stairs, on 11/06. Per general surgery, patient was drinking alcohol as per his usual routine and feel down half a flight of stairs and was knocked unconscious. When he awoke after an unknown length of time he was disoriented to place and situation. Head CT revealed a hyperdensity in (R) frontal lobe concerning for IPH vs DVA vs mass Code Status: full code Activity Orders: as tolerated Precautions: High risk for skin breakdown; At risk to fall; Spinal Precautions: No bending, twisting, or lifting >5-10 #s, Use log roll for bed mobility, [place] at all times; Maintain SBP <160; EtOH Withdrawal - on Ativan assessment scale Objective: Patient seen for therapeutic activities to address functional goals. Cognition / Vision / Behavior ?? Alert, oriented x 4 ?? Cooperative and eager to participate ?? Unable to recall spinal precautions ?? Following directions accurately, minimal cues ?? Tendency to minimize deficits, slightly impulsive, cues for safety Activities of Daily Living / Functional Mobility ?? Supine to sit with supervision, cues for log roll technique ?? Pt doffed kenny and pants, donned underwear, jeans, shirt, and slippers while sitting EOB with supervision, required verbal cues to follow spinal precautions, pt able to bring LE's into figure 4 position in order to follow spinal precautions ?? Sit to stand with standby assistance and verbal cues, slightly unsteady upon standing ?? Pt ambulated approx 200 ft with cgA, occasional sway & three self-corrected LOB noted ?? Pt made drink in kitchen with verbal cues and cgA 2'2 sway and occasional unsteadiness, required maximal assistance to retrieve soda off of the middle shelf of fridge, educated re: LH chlorine cell tender thoughunable to trial as it was not close by, pt with one episode of dizziness after making drink, required standing rest break leaning against counter with eyes closed, cgA, pt reported decreased dizziness after approx 60 seconds. ?? Pt is an avid reader at baseline, pt selected a mystery book from [employer], pt activelyreading chosen book at end of tx session Strength / Range of motion ?? R UE x ray equipment mechanic strength < L UE x ray equipment mechanic strength, functional Vitals and Endurance ?? Last recorded vitals below Last value Heart Rate Heart Rate: 54 Blood Pressure BP: 118/82 mmHg SpO2 SpO2: 94 % Pain: no c/o pain Education: Pt/family education ongoing re: Role of OT, participation in ADL's, functional mobility, developing/maintaining self-care routine, positioning, safety, cognition, delirium prevention, energyconservation, and discharge planning. Pt will benefit from ongoing education. Staff Communication: Patient status and treatment recommendations discussed with nursing/other staff. Assessment: Pt with several improvements in strength, endurance, and functional status though continues to require standby assistance and verbal cues 2'2 impulsivity, unsteadiness during ambulation, and intermittent dizziness. Pt remains pleasant, cooperative and eager to progress towards PLOF. Pt would benefit from ongoing OT services to maximize functional mobility and increase independence with ADL's. Discharge Recommendations: Patient requires supervision and assistance for functional mobility and ADL's at this time. Patient would benefit from ongoing OT services in order to progress towards PLOF. If plan for d/c home recommend full services. Daily Schedule / Staff Recommendations: Encourage OOB activity and participation in self-care activities. Promote well-being through leisure and relaxation as available and appropriate. Encourage day/night sleep schedule. Goals: To be achieved by /15. 1. Pt will demonstrate independent with precautions/restrictions during ADLs. 2. Pt will perform sink level ADLs with supervision only. 3. Pt will dress self independently using adaptive technique/equipment as needed. 4. Pt will ambulate within room for ADLs with assistive device as needed. 5. Pt will demonstrate understanding of mild head injury symptoms and precautions. Plan: Pt to be seen 2-4x per week for therapy including Assistive device/technique, ADL, Safety, Precautions/Protocol, Functional Mobility, Activity pacing/Energy conservation, Recommendations and Discharge planning Eval Date: 11/08/2014 Total time spent with patient: 41 minutes Total timed interventions: 41 minutes BEE SOW (Pager # [phone]) Occupational Therapy Rehabilitation Department Brynn Lamas RN - 11/12/2014 9:43 AM EDT Office of Care Management (OCM) / Intelligence Intern (CM)/ Initial Assessment Reviewed record and interviewed patient. Introduced/reviewed CM role and services accepted. REASON for HOSPITALIZATION: On 11/06/14, Derrick Hobson is a 59 y.o. male presents to [facility] 2 days after he feel down 1/2 flight of stairs. Patient was drinking alcohol as per his usual routine and feeldown half a flight of stair and was knocked unconscious. When he awoke an unknown length of time he was disoriented to place and situation. He was helped home by friends. 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 He was complaining of band-like headache and R chest pain. He presented to [facility] ED where a head CT showed a small IPH for which he was transferred here. The following injuries identified: 1. Small IPH 2. concussion 3. Right 6th rib fracture with small effusion PMH. See full H&P for further details PREVIOUS FUNCTIONAL STATUS: independent CURRENT FUNCTIONAL STATUS: reclined in bed with [place] J collar in place, note RA sat 91%. Initially,pt appears to be sleeping and does not respond to answers at this time. Returned short time later and pt is awake and pleasant. He is able to explain he does not recall fall. He is appropriate and reports comfortable at this time. SOCIAL / FAMILY SUPPORTS: Pt explains he lives alone, has an older sister in [facility]. see her couple times week but she could not help me... Has a brother in [place], a little standoffish ADVANCE DIRECTIVES: not on file HEALTH /PRESCRIPTION COVERAGE: [facility] CURRENT HOME/COMMUNITY SERVICES/EQUIPMENT: DME: none Home Health Agency: Other: Patient would benefit from acute/SNF/swing rehab at discharge. ?? Met with patient/family at bedside. ?? Reviewed levels of rehab including SNF, swing. ?? A list that serves the geographical area which the patient resides or the geographical area requested has been provided through [employer] search. ?? Requested patient/family provide at least three choices for referral. ?? Patient/family request referrals: pt is willing to consider rehab as recommended and prefers to be close to [facility] where family is located. Referrals initiated to [facility] and possible third choice is the [facility] in [place] Note routed to [employer] who will communicate referrals to facilities via [employer] program. DIGITAL ADVERTISING ANALYST REFERRAL: Anticipate pt may need DIGITAL ADVERTISING ANALYST support. Pt apparently on parole. Pt may require short term skilled stay to improve strength and conditioning in addition to current need for assist with ADL's. PRIMARY CARE PHYSICIAN: Sherri Rivas MD POTENTIAL DISCHARGE NEEDS: possible need for skilled stay at discharge ANTICIPATED BARRIERS TO DISCHARGE: coverage for anticipated skilled stay and an appropriate setting to meet therapy needs. TRANSPORTATION @ D/C: to be determined PLAN: Pt is willing to consider rehab at this time but is hoping he can go home. We discussed facilities in his area. Provided above options We discussed he may want to talk with friends and family for advice. Timing of discharge unclear at this time, potentially ready the end of this week. Transport needs will have to be discussed. Will also initiate referral for DIGITAL ADVERTISING ANALYST. Meredith APRN - 11/12/2014 6:07 AM EDT Trauma Daily Progress Note REPAIR TECHNICIAN Team Pager [phone] ID/Mechanism of injury:59 y.o. Male admitted on 11/06/14 s/p fall 2 down stairs on 11/08 Injury Intervention Follow-up Linear area of hyper density in the posterior lateral right frontal lobe, ? Irregular shaped [facility] Neurosurgery consulted - MRI images limited due to patient movement but did not show obvious vascular anomaly requiring surgery - Serial neuro checks - Hold all anticoagulation - SBP <160 NS clinic in 4 weeks Cervical spine tenderness [place] collar at all times - Serial exams Spine center consult in 4 weeks Mildly displaced right sixth anterolateral rib fracture with small associated effusion Resp Therapy consult - IS q1 hour with assistance Trauma clinic in 4 weeks In Hospital Issues: Pain Leukocytosis- resolved Elevated lactate- resolved ETOH withdrawl O2 dependence- resolved HTN- acute on chronic Deconditioning Qtc prolongation- resolved EKG with T wave inversions inferior and anterolateral leads Procedures: None PMHx: Insomnia Anxiety/Depression Chronic pain Asthma HTN ETOH abuse 24 Hour Events/Subjective: - EKG obtained, t waves inverted in inferior and anterolateral leads - Troponin x3 flat, likely demand ischemia from earlier HTN - +BM - Scored once overnight only on AAS for confusion and insomnia Current Medications: ??? traZODone 150 mg Oral Nightly ??? senna-docusate 4 tablet Oral BID ??? polyethylene glycol 17 g Oral Daily ??? LORazepam 1 mg Oral Q6H PRICILLA ??? lisinopril 10 mg Oral Daily ??? multivitamin 1 tablet Oral Daily ??? ipratropium-albuterol 3 mL Nebulization Q4H ??? lidocaine 1 patch Transdermal Daily And ??? lidocaine 1 patch Transdermal Nightly ??? nicotine 21 mg Transdermal Daily And ??? nicotine 1 patch Transdermal Daily ??? beclomethasone 2 puff Inhalation BID ??? buPROPion 150 mg Oral BID ??? propranolol 80 mg Oral 4 Times Daily ??? citalopram 20 mg Oral Daily ??? gabapentin 900 mg Oral TID ??? acetaminophen 650 mg Oral Q6H ??? sodium chloride 0.9 % 5 mL Intravenous BID Vital Signs: VITALS (24hr Range): Temp Temp: [36.8 ??C (98.2 ??F)-37.1 ??C (98.7 ??F)] , HR Heart Rate: [54-63] , BP BP: (106-135)/(69-78) , RR Resp: [15-18] , SpO2 SpO2: [94 %-99 %] I/O: Intake/Output Summary (Last 24 hours) at 11/12/14 0738 Last data filed at 11/12/14 0222 Gross per 24 hour Intake 2180 ml Output 600 ml Net 1580 ml Physical Exam: GENERAL: Interactive, appropriate HEENT: Normocephalic, atraumatic; [place] J collar in place- cervical spine tenderness on exam C2-5 LUNG: CTAB CARDIAC: Regular rate and rhythm or without murmur or extra heart sounds ABDOMEN/GI: Obese, soft, NT/ND SKIN: No rashes EXTREM: WWP, no edema NEURO: Wakes to voice, MAEW, follows commands X 4 Labs: No results for input(s): WBC, HGB, HCT, PLATELET, PT, INR, PTT in the last 72 hours. Recent Labs 11/11/14 0349 NA 137 K 3.7 CL 96* CO2 28 BUN 11 CREATININE 0.79* GLUCOSE 95 CALCIUM 9.3 Microbiology: None New Imaging: No new data Assessment: Mr. Hobson is a 59yo male admitted to [facility] on 11/06 after a fall down stairs while intoxicated on 11/04, sustaining injuries as listed below. His stay has been complicated by alcohol withdrawal, requiring scheduled and PRN ativan, as well as the addition of lisinopril for BP control. His behavior/cognition has improved in the last 24hrs, likely now more of a delirium picture rather than withdrawal. Injury Linear area of hyperdensity in the posterior lateral right frontal lobe, ? Irregular shaped IPH Cervical spine tenderness Mildly displaced right sixth anterolateral rib fracture with small associated effusion Other Active Issues: Pain ETOH withdrawl HTN- acute on chronic Deconditioning Plan: NEURO: - Pain: Cont scheduled Tylenol; oxycodone to 5-15mg q4 hour PRN pain; Cont lidoderm patches to R chest wall for rib fx - Hx Chronic pain: Cont home gabapentin; Hold home flexeril - ETOH withdrawal: Will d/c Ativan Assessment scale today, but continue with scheduled ativan 1mg l6ttryo, MVI daily - Hx Anxiety/Depression: Cont home Celexa, Wellbutrin - Hx Insomnia: Increase home Trazodone to 150mg qhs today (home dose is 100-250 daily) to promote sleep/wake cycle and Hold home Ambien for now - IPH: Keep SBP <160, Serial neuro checks; f/u with NS in 4 weeks SPINE: - TLS cleared in trauma bay - Cont [place] J collar today given tenderness on exam and mental status; Reassess daily--pt will likely need to be seen by outpatient spine center if unable to be cleared PULM: - Hx tobacco abuse: Nicotine patch - Rib fx: RT following for aggressive pulm toilet - Hx asthma: Cont home QVAR; Cont q4 hour duonebs CARDIAC: - EKG with T wave inversions inferior and anterolateral leads- Cardiac enzymes x3 flat, will repeat EKG this AM to evaluate - Follow HR, BP trend - HTN: Acute on chronic; Cont home Indural today in short acting form (home dose is 360mg SR daily);Cont Lisinopril 10mg daily- this is a new medication started this admission; Cont Hydralazine and Labetalol PRN SBP >160 FEN/GI: - Diet: Regular - NBO: Ordered, LBM 11/11 - LFTs WNL 11/07 RENAL: - Voiding, Follow UOP, Cr - Monitor lytes, replete as indicated HEME: - Follow CBC PRN ID: - Follow WBC, temp trend - [place] cx for temp spike >38.5 PT/OT: Ordered PROPHYLAXIS: DVT prophylaxis: Hold s/t head injury, BLE duplex negative on 11/10, repeat in 7 days (~11/17) GI prophylaxis: None, Tolerating diet and no hx of GERD DISPO/Discharge Planning: Floor status, Full code, will discuss rehab options with CRC today CONSULTS: Neurosurgery: Assessment/Plan:: 59 y.o. male with hyperdensity in right frontal lobe on CT after fall. Neurologically stable. Pleasefollow-up with Jerson Burciaga PA-C in 4 weeks with a repeat CT head. Neurosurgery will sign-off. Please page with any questions or concerns. Active issues to be addressed at discharge/incidental findings: - Patchy areas of hypoattenuation the white matter probably representing small vessel ischemic change - Extensive facet arthropathy is present on the left at C2-C3. - Disc degenerative changes from C4 through C6 with large anterior osteophytes. 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 - Retrolisthesis of L5 on S1. - There is loss disc height at L4-L5 and L5-S1 - A small right basilar calcified granuloma is present measuring 8 mm in size. - Small amount of right paratracheal air seen on series 2, image 8 likely represents a small tracheal diverticulum. - Ectasia of the ascending aorta measuring up to 4 cm, which tapers at the level of the arch. - Mild cardiomegaly. - Moderate coronary artery calcification present. - Calcified small subcarinal lymph nodes noted. - The gallbladder contains multiple cholesterol gallstones without pericholecystic fluid identified. - Prostatic calcifications are identified. - Multilevel degenerative changes of the spine. - Mild retrolisthesis is seen involving L5 and S1. - Multilevel degenerative changes of the spine are identified. - There is atherosclerotic calcification of the abdominal aorta. MEREDITH ALONSO APRN 11/12/2014 Luisa Colón OTA - 11/11/2014 11:58 AM EDT Occupational Therapy Treatment Note Visit #: 04/14 Patient: Derrick Hobson is a 59 y.o. male patient of Dorian Singleton MD, admitted on 11/06/2014 2 days after he feel down 1/2 flight of stairs, on 11/06. Per general surgery, patient was drinking alcohol as per his usual routine and feel down half a flight of stairs and was knocked unconscious. When he awoke after an unknown length of time he was disoriented to place and situation. Head CT revealed a hyperdensity in (R) frontal lobe concerning for IPH vs DVA vs mass Code Status: full code Activity Orders: as tolerated Precautions: High risk for skin breakdown; At risk to fall; Spinal Precautions: No bending, twisting, or lifting >5-10 #s, Use log roll for bed mobility, [place] at all times; Maintain SBP <160; EtOH Withdrawal - on Ativan assessment scale Objective: Patient seen for therapeutic activities to address functional goals. Cognition / Vision / Behavior ?? Alert, intermittently drowsy ?? Cooperative, eager to participate ?? Unable to recall spinal precautions ?? Oriented x 4 ?? Completed MMSE and achieved a score of 29/30 ?? Pt follows directions and commands accurately in timely manner ?? Pt with tendency to minimize deficits, benefits from cues to fully recognize deficits ?? Pt complaining of feeling woozy and slightly dizzy, ? Photosensitivity, frequently closing eyes, when curtain was dimmed pt stated he felt much better, will benefit from ongoing vision assessment Activities of Daily Living / Functional Mobility ?? Supine to sit EOB with supervision, verbal cues ?? Pt sat EOB for approximately 25 minutes with supervision ?? Pt experienced 2 episodes of LOB laterally and posteriorly during coughing fit ?? Per RN report pt took seated shower with supervision, maximal cues to follow spinal precautions ?? Educated re: dressing, bathing techniques while maintaining spinal precautions, issued LH sponge,sock aide, chlorine cell tender, and dressing stick. ?? Pt donned socks using sock aide with demonstration and verbal cues Strength / Range of motion ?? Not formally tested, appears within functional limits Vitals and Endurance ?? Last recorded vitals below Last value Heart Rate Heart Rate: 63 Blood Pressure BP: 131/71 mmHg SpO2 SpO2: 98 % Pain: no c/o pain Education: Pt/family education ongoing re: Role of OT, participation in ADL's, functional mobility, developing/maintaining self-care routine, positioning, safety, cognition, delirium prevention, energyconservation, and discharge planning. Pt will benefit from ongoing education. Staff Communication: Patient status and treatment recommendations discussed with nursing/other staff. Assessment: Pt continues to demonstrate impaired ability to independently complete functional mobility and ADL's 2'2 spinal precautions, photosensitivity, and rib fx pain. Pt with no episodes of agitation and was eager to participate in functional activities. Pt would benefit from ongoing OT services to maximize functional mobility and increase independence with ADL's. Discharge Recommendations: Patient requires ongoing 24/7 supervision and assistance. Recommend ongoing OT services in order to progress towards PLOF. Daily Schedule / Staff Recommendations: Encourage OOB activity and participation in self-care activities. Promote well-being through leisure and relaxation as available and appropriate. Encourage day/night sleep schedule. Goals: To be achieved by /. 1. Pt will demonstrate independent with precautions/restrictions during ADLs. 2. Pt will perform sink level ADLs with supervision only. 3. Pt will dress self independently using adaptive technique/equipment as needed. 4. Pt will ambulate within room for ADLs with assistive device as needed. 5. Pt will demonstrate understanding of mild head injury symptoms and precautions. Plan: Pt to be seen 2-4x per week for therapy including Assistive device/technique, ADL, Safety, Precautions/Protocol, Functional Mobility, Activity pacing/Energy conservation, Recommendations and Discharge planning Eval Date: 11/08/2014 Total time spent with patient: 30 minutes Total timed interventions: 30 minutes BRY SOW/Carmen (Pager # [phone]) Occupational Therapy Rehabilitation Department Magy Parker PTA - 11/11/2014 9:30 AM EDT Physical Therapy Note Treatment # 2 Patient profile: Derrick Hobson is a 59 y.o. right handed male presented to [facility] on 11/06/2014 by Dorian Singleton MD 2 days after he feel down 1/2 flight of stairs, on 11/06. Per general surgery, patient was drinking alcohol as per his usual routine and feel down half a flight of stairs and was knocked unconscious. When he awoke after an unknown length of time he was disoriented to place and situation. Head CT revealed a hyperdensity in (R) frontal lobe concerning for IPH vs DVA vs mass. PT Consult Received 11/07 for initial evaluation. Patient with the following active problems: Patient Active Problem List Diagnosis Code ??? Abnormal brain CT 793.0 PMH: History reviewed. No pertinent past medical history. No past surgical history on file. Social History: Patient lives alone in a single story home in [place], [place]. Pt states that bathroom includes a tub shower with grab bars. Pt has friends who provide rides as needed for shopping / appointments. Pt reports that he sleeps either in reclining chair or in flat bed typically. Stairs: 14 stairs with one rail to enter home Baseline Mobility: independent without use of assistive device; Reports h/o multiple falls; Does notdrive Equipment at home: none Precautions/Special Considerations: Full code; High risk for skin breakdown; At risk to fall; SpinalPrecautions: No bending, twisting, or lifting >5-10 #s, Use log roll for bed mobility, Daphnie perea times; Maintain SBP <160; EtOH Withdrawal - on Ativan assessment scale Activity Orders: Activity as tolerated Diet: Regular Staff communication/Mobility Recommendations: Pt. to utilize rolling walker with gait belt and 1-2 person assist for ambulation with nursing. Pt requires cuing for walker placement with toileting. Bed Mobility: please use log roll 24 Hour Events: - Scheduled ativan increased, agitation improved overnight - Lisinopril added for better BP control Subjective: ???I can't get anyone to give me the same answers to my questions.?? Objective: Pt seen for PT today. Consulted with RN, Pt is appropriate and cleared to participate in Pain: 12/12 (R) LQ - rib fractures with coughing. Vital Signs: Last value Heart Rate Heart Rate: 58 Blood Pressure BP: 106/76 mmHg SpO2 SpO2: 98 % Mental Status: Somewhat drowsy, oriented to month, place, situation Bed Mobility: Supine to Sit: with HOB up ~ 20 degrees, supervision assist of 1. Pt able to don on gripper socks at EOB but did loose his sitting balance leaning over to the left. Sit to supine: with HOB flat, contact guard assist of NGA,ander, for log rolling technique. Transfers: Sit to Stand: contact guard using FWW. Stand to Sit: contact guard using FWW. Gait: Distance: ~150 feet Device used: rolling walker Level of assist: variable - contact guard to min assist with LOB, verbal cueing to maintain safety and for walker management Gait pattern: forward flexed trunk with reliance on walker for stability, veering left to right, no demonstrated visual scanning abilities. Balance: Sitting: WFL Standing: Impaired, impulsive contributing to poor dynamic safety at this time Education: patient has been educated on Bed mobility, Transfers, Safety , Gait , Role of therapy, Balance and Discharge planning and needs reinforcement. understanding. Patient status, treatment, and mobility recommendations discussed with nursing. Assessment: Pt tolerated PT activities fairly. Pt demonstrated improved tolerance and fair progress to bed mobility, transfers and gait activities. Pt was not able to ambulate without veering left and right and/or scan for environmental floor objects. Pt remains impulsive with no regards putting himsel f at risk of falling.The pt would benefit from skilled therapy services to maximize functional independence while in the hospital and to address limitations as noted above. Goals: To be achieved by 11/13/14: 1. Pt. to demonstrate knowledge of safety limitations and precautions and will appropriately requestassistance for functional activities and to mobilize. 2. Pt. to perform bed mobility with independent without bed rail and with HOB flat using log roll. 3. Pt. to perform sit to stand transfers with independent utilizing a rolling walker. 4. Pt. to ambulate 150 feet with a rolling walker, and independent. 5. Pt. to ambulate up/down 14 step/stairs with independent, using one railing with second person to provide assist for walker management. 6. Family or caregiver to demonstrate understanding of therapeutic interventions to support the careof the patient. Plan: PT services to resume Friday 11/10. Pt to be seen 3-5 times per week for therapy including Bed mobility, Transfers, Assistive device/technique, Stairs, Exercise, Safety , Precautions/protocol, Gait , Balance and Discharge planning. Patient agrees with plan as stated above. Discharge Recommendations: Patient requires ongoing 24/7 supervision. Patient would benefit from skilled therapy interventions to promote functional independence and safety while improving activity tolerance. No other consults recommended at this time Equipment needs: Rolling walker. Time IN / OUT: 9:30 - 9:55 Total time spent with patient: 25 minutes for therapeutic functional Total timed interventions:25 minutes MAGY PARKER PTA, 11/11/2014 Pager: [phone] Physical Therapy Inpatient Rehabilitation Department Ramandeep Wilson APRN - 11/11/2014 6:22 AM EDT Trauma Daily Progress Note REPAIR TECHNICIAN Team Pager [phone] ID/Mechanism of injury:59 y.o. Male admitted on 11/06/14 s/p fall 2 down stairs on 11/08 Injury Intervention Follow-up Linear area of hyper density in the posterior lateral right frontal lobe, ? Irregular shaped [facility] Neurosurgery consulted - MRI images limited due to patient movement but did not show obvious vascular anomaly requiring surgery - Serial neuro checks - Hold all anticoagulation - SBP <160 NS clinic in 4 weeks Cervical spine tenderness [place] collar at all times - Serial exams Spine center consult in 4 weeks Mildly displaced right sixth anterolateral rib fracture with small associated effusion Resp Therapy consult - IS q1 hour with assistance Trauma clinic in 4 weeks In Hospital Issues: Pain Leukocytosis- resolved Elevated lactate- resolved ETOH withdrawl O2 dependence- resolved HTN- acute on chronic Deconditioning Qtc prolongation- resolved EKG with T wave inversions inferior and anterolateral leads Procedures: None PMHx: Insomnia Anxiety/Depression Chronic pain Asthma HTN ETOH abuse 24 Hour Events/Subjective: - Scheduled ativan increased, agitation improved overnight - Lisinopril added for better BP control Current Medications: ??? LORazepam 1 mg Oral Q6H PRICILLA ??? lisinopril 10 mg Oral Daily ??? multivitamin 1 tablet Oral Daily ??? traZODone 100 mg Oral Nightly ??? ipratropium-albuterol 3 mL Nebulization Q4H ??? lidocaine 1 patch Transdermal Daily And ??? lidocaine 1 patch Transdermal Nightly ??? nicotine 21 mg Transdermal Daily And ??? nicotine 1 patch Transdermal Daily ??? beclomethasone 2 puff Inhalation BID ??? buPROPion 150 mg Oral BID ??? propranolol 80 mg Oral 4 Times Daily ??? citalopram 20 mg Oral Daily ??? gabapentin 900 mg Oral TID ??? senna-docusate 2 tablet Oral BID ??? acetaminophen 650 mg Oral Q6H ??? sodium chloride 0.9 % 5 mL Intravenous BID Vital Signs: VITALS (24hr Range): Temp Temp: [36.7 ??C (98 ??F)-37 ??C (98.6 ??F)] , HR Heart Rate: [52-71] , BP BP: (117-152)/(70-101) , RR Resp: [18-20] , SpO2 SpO2: [92 %-97 %] I/O: Intake/Output Summary (Last 24 hours) at 11/11/14 0622 Last data filed at 11/11/14 0400 Gross per 24 hour Intake 3590 ml Output 1275 ml Net 2315 ml Physical Exam: GENERAL: interactive, appropriate HEENT: Normocephalic, atraumatic; [place] J collar in place- cervical spine tenderness on exam C2-5 LUNG: CTAB CARDIAC: Regular rate and rhythm or without murmur or extra heart sounds ABDOMEN/GI: Obese, soft, NT/ND SKIN: No rashes EXTREM: WWP, no edema NEURO: Wakes to voice, MAEW, follows commands X 4 Labs: No results for input(s): WBC, HGB, HCT, PLATELET, PT, INR, PTT in the last 72 hours. Recent Labs 11/11/14 0349 NA 137 K 3.7 CL 96* CO2 28 BUN 11 CREATININE 0.79* GLUCOSE 95 CALCIUM 9.3 Microbiology: None New Imaging: No new data Assessment: Mr. Hobson is a 59yo male admitted to [facility] on 11/06 after a fall down stairs while intoxicated on 11/04, sustaining injuries as listed below. His stay has been complicated bu Etoh withdrawal, requiring scheduled and PRN ativan, as well as the addition of lisinopril for BP control. His behavior/cognition has improved in the last 24hrs. Injury Linear area of hyperdensity in the posterior lateral right frontal lobe, ? Irregular shaped IPH Cervical spine tenderness Mildly displaced right sixth anterolateral rib fracture with small associated effusion Other Active Issues: Pain ETOH withdrawl HTN- acute on chronic Deconditioning Plan: NEURO: - Pain: Cont scheduled Tylenol; oxycodone to 5-15mg q4 hour PRN pain; Cont lidoderm patches to R chest wall for rib fx - Hx Chronic pain: Cont home gabapentin; Hold home flexeril - ETOH withdrawal: Cont Ativan Assessment scale, with scheduled ativan 1mg q6 hours, MVI daily - Hx Anxiety/Depression: Cont home Celexa, Wellbutrin - Hx Insomnia: Cont home Trazodone qhs today (100mg nightly, home dose is 100- 250 daily) to promote sleep/wake cycle and Hold home Ambien for now - IPH: Keep SBP <160, Serial neuro checks; f/u with NS in 4 weeks SPINE: - TLS cleared in trauma bay - Cont [place] J collar today given tenderness on exam and mental status; Reassess daily--pt will likely need to be seen by outpatient spine center if unable to be cleared PULM: - Hx tobacco abuse: Nicotine patch - Rib fx: RT following for aggressive pulm toilet - Hx asthma: Cont home QVAR; Add q4 hour duonebs today CARDIAC: - EKG with T wave inversions inferior and anterolateral leads- cycle cardiac enzymes - Follow HR, BP trend - HTN: Acute on chronic; Cont home Indural today in short acting form (home dose is 360mg SR daily);cont Lisinopril 10mg daily- this is a new medication started this admission; Cont Hydralazine and Labetalol PRN SBP >160 FEN/GI: - Diet: Regular - NBO: Ordered, LBM PRISON KEEPER--pt should have BM today, suppository written - LFTs WNL 11/07 RENAL: - Voiding, Follow UOP, Cr - Monitor lytes, replete K today HEME: - Follow CBC ID: - Follow WBC, temp trend - [place] cx for temp spike >38.5 PT/OT: Ordered PROPHYLAXIS: DVT prophylaxis: Hold s/t head injury, BLE duplex negative on 11/10, repeat in 7 days GI prophylaxis: None, Tolerating diet and no hx of GERD DISPO/Discharge Planning: Floor status, Full code CONSULTS: Neurosurgery: Assessment/Plan:: 59 y.o. male with hyperdensity in right frontal lobe on CT after fall. Neurologically stable. Pleasefollow-up with Jerson Burciaga PA-C in 4 weeks with a repeat CT head. Neurosurgery will sign-off. Please page with any questions or concerns. Active issues to be addressed at discharge/incidental findings: - Patchy areas of hypoattenuation the white matter probably representing small vessel ischemic change - Extensive facet arthropathy is present on the left at C2-C3. - Disc degenerative changes from C4 through C6 with large anterior osteophytes. 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 - Retrolisthesis of L5 on S1. - There is loss disc height at L4-L5 and L5-S1 - A small right basilar calcified granuloma is present measuring 8 mm in size. - Small amount of right paratracheal air seen on series 2, image 8 likely represents a small tracheal diverticulum. - Ectasia of the ascending aorta measuring up to 4 cm, which tapers at the level of the arch. - Mild cardiomegaly. - Moderate coronary artery calcification present. - Calcified small subcarinal lymph nodes noted. - The gallbladder contains multiple cholesterol gallstones without pericholecystic fluid identified. - Prostatic calcifications are identified. - Multilevel degenerative changes of the spine. - Mild retrolisthesis is seen involving L5 and S1. - Multilevel degenerative changes of the spine are identified. - There is atherosclerotic calcification of the abdominal aorta. RAMANDEEP WILSON APRN 11/11/2014 Alicia No [facility] - 11/11/2014 2:28 AM EDT RT was at bed side pt to deep breath and cough, and also for I.S. Maneuver but pt refused, will continue to follow. Zohreh Martínez - 11/10/2014 12:56 PM EDT Nutrition Services - Follow-up Note Derrick Hobson : 1955 AGE: 59 y.o. Patient Active Problem List Diagnosis Date Noted ??? Hospital-Abnormal brain CT 11/08/2014 Reason for Nutrition Intervention: Follow-up Diet Order: Regular Appetite: Poor Food allergies: NKFA Chewing/Swallowing difficulty: None Reported Height: 177.8cm Weight: 86.1kg Body mass index is 27.26 kg/(m^2). Vitamins/Minerals: Multivitamin, Folvite, Thiamine noted Assessment: Spoke with nursing who reported poor intake d/t withdrawing. Recommend supplemental shakes if patient continues to have poor intake. Nutrition Plan: Continue Current Diet. Recommend Daily Multi Vitamins. Recommend Boost Plus. Encourage good po intake. Monitor weight. Support and encouragement provided. Nutrition services to follow weekly thru hospital course unless consulted in the interim. Zohreh Martínez, DT Patsy Alcaraz PT - 11/10/2014 8:34 AM EDT Physical Therapy Note Pt not appropriate for participation in skilled PT at this time secondary to pt confused, agitated, and not redirectable this AM scoring 11 on Ativan assessment scale. Will follow up to re-attempt whenappropriate. Please page this fiction and nonfiction prose writer if you have any questions, thank you. Patsy Alcaraz, PT Pager #[phone] Physical Therapy Inpatient Rehabilitation Meredith Alonso APRN - 11/10/2014 6:33 AM EDT Trauma Daily Progress Note REPAIR TECHNICIAN Team Pager [phone] ID/Mechanism of injury:59 y.o. Male admitted on 11/06/14 s/p fall 2 days prior down stairs. Injury Intervention Follow-up Linear area of hyperdensity in the posterior lateral right frontal lobe, ? Irregular shaped IPH vs large developmental venous anomaly Neurosurgery consulted - MRI ordered - Serial neuro checks - Hold all anticoagulation - SBP <160 NS clinic in 4 weeks Cervical spine tenderness [place] J collar at all times - Serial exams Spine center consult in 4 weeks Mildly displaced right sixth anterolateral rib fracture with small associated effusion Resp Therapy consult - IS q1 hour with assistance Trauma clinic in 4 weeks In Hospital Issues: Pain Leukocytosis Elevated lactate ETOH abuse/withdrawl O2 dependence HTN- acute on chronic Deconditioning Procedures: None PMHx: Will need to contact patient's PCP on Sunday to confirm: Insomnia Anxiety/Depression Chronic pain Asthma HTN ETOH abuse 24 Hour Events/Subjective: - HTN to the 180s, minimal response with PRN labatalol - Anxiety continued, scoring on AAS for diaphoresis, HTN, insomnia and agitation - Medicated every 4 hours via scale, q8 hours scheduled ativan - Restraints able to be removed, remains impulsive - Cervical collar remains, cont to have pain and unreliable exam Current Medications: ??? LORazepam 1 mg Oral Q6H PRICILLA ??? lisinopril 10 mg Oral Daily ??? multivitamin 1 tablet Oral Daily ??? ipratropium-albuterol 3 mL Nebulization Q4H ??? lidocaine 1 patch Transdermal Daily And ??? lidocaine 1 patch Transdermal Nightly ??? nicotine 21 mg Transdermal Daily And ??? nicotine 1 patch Transdermal Daily ??? beclomethasone 2 puff Inhalation BID ??? buPROPion 150 mg Oral BID ??? propranolol 80 mg Oral 4 Times Daily ??? citalopram 20 mg Oral Daily ??? gabapentin 900 mg Oral TID ??? senna-docusate 2 tablet Oral BID ??? acetaminophen 650 mg Oral Q6H ??? sodium chloride 0.9 % 5 mL Intravenous BID Vital Signs: VITALS (24hr Range): Temp Temp: [36.5 ??C (97.7 ??F)-37.4 ??C (99.3 ??F)] , HR Heart Rate: [57-73] , BP BP: (117-198)/(76-122) , RR Resp: [16-22] , SpO2 SpO2: [92 %-98 %] I/O: Intake/Output Summary (Last 24 hours) at 11/10/14 1120 Last data filed at 11/10/14 1115 Gross per 24 hour Intake 2590 ml Output 1525 ml Net 1065 ml Physical Exam: GENERAL: Wakes to voice, calm but states he's annoyed HEENT: Normocephalic, atraumatic; [place] J collar in place- cervical spine tenderness on exam C2-5 LUNG: Equal, breath sounds bilaterally; Scattered wheezes bilaterally. Tenderness to palpation over right chest. No crepitus. CARDIAC: Regular rate and rhythm or without murmur or extra heart sounds ABDOMEN/GI: Soft, non-distended, no abrasions and no contusions, Non tender to palpation over entireabdomen SKIN: No rashes; WWP NEURO: Wakes to voice, more cooperative today; Oriented x2, unclear of hospital name Labs: No results for input(s): WBC, HGB, HCT, PLATELET, PT, INR, PTT in the last 72 hours. No results for input(s): NA, K, CL, CO2, BUN, CREATININE, GLUCOSE, CALCIUM, MAGNESIUM, PHOS in the last 72 hours. Microbiology: - None New Imaging: - No new data Assessment: Mr. Hobson is a 59yo male admitted to [facility] on 11/06 after a fall down stairs while intoxicated on 11/04, injuries as above. He is hemodynamically stable, and oxygenating well on RA. He continues to require both scheduled and PRN ativan for multiple withdrawal symptoms--will increased frequency of scheduled ativan today for better control. Will discuss with nursing today about using behavioral modification (ie frequent walks) to limit anxiety. Injury Linear area of hyperdensity in the posterior lateral right frontal lobe, ? Irregular shaped IPH vs large developmental venous anomaly Cervical spine tenderness Mildly displaced right sixth anterolateral rib fracture with small associated effusion Other Active Issues: Pain Leukocytosis Elevated lactate ETOH abuse/withdrawl O2 dependence HTN- acute on chronic Deconditioning Plan: NEURO: - Pain: Cont scheduled Tylenol; On oxycodone to 5-15mg q4 hour PRN pain; Cont lidoderm patches to R chest wall for rib fx - Hx Chronic pain: Cont home gabapentin; Hold home flexeril - ETOH withdrawal: Cont Ativan Assessment scale for now; Increase scheduled oral ativan to 1mg q6 hours in hopes to wean scale off tomorrow; banana bag and 3d thiamine/folate completed, start MVI dailytoday - Hx Anxiety/Depression: Cont home Celexa and Wellbutrin; Hold home Trazodone PRN for now - Hx Insomnia: Restart home Trazodone qhs today (100mg nightly, home dose is 100-250 daily) to promote sleep/wake cycle and Hold home Ambien for now - IPH vs. Vascular anomaly: NS following, hold anticoagulation, Keep SBP <160, Serial neuro checks; MRI of the brain was attempted but incomplete, f/u with NS in 4 weeks SPINE: - TLS cleared in trauma bay - Cont [place] J collar today given tenderness on exam and mental status; Reassess daily--pt will likely need to be seen by outpatient spine center if unable to be cleared PULM: - Hx tobacco abuse: Nicotine patch - Rib fx: RT following for aggressive pulm toilet; Wean O2 as tolerated, Goal SpO2 >88% given smoking hx - Hx asthma: Cont home QVAR; Add q4 hour duonebs today CARDIAC: - Follow HR, BP trend - HTN: Acute on chronic; Cont home Indural today in short acting form (home dose is 360mg SR daily);Will start Lisinopril 10mg daily today for better control; Cont Hydralazine and Labetalol PRN SBP >160 FEN/GI: - Diet: Regular with assistance - NBO: Ordered, LBM PRISON KEEPER--pt should have BM today, suppository written - LFTs WNL 11/07 RENAL: - Voiding, Follow UOP, Cr - Monitor lytes, replete as indicated HEME: - Follow CBC ID: - Follow WBC, temp trend - Leukocytosis: Improved, follow trend - [place] cx for temp spike >38.5 PT/OT: Ordered PROPHYLAXIS: 1. DVT prophylaxis: Hold s/t head injury, Obtain BLE duplex today (ordered) 2. GI prophylaxis: None, Tolerating diet and no hx of GERD DISPO/Discharge Planning: Floor status, Full code CONSULTS: Neurosurgery: Assessment/Plan:: 59 y.o. male with hyperdensity in right frontal lobe on CT after fall. Neurologically stable. Pleasefollow-up with Jerson Burciaga PA-C in 4 weeks with a repeat CT head. Neurosurgery will sign-off. Please page with any questions or concerns. Active issues to be addressed at discharge/incidental findings: - Patchy areas of hypoattenuation the white matter probably representing small vessel ischemic change - Extensive facet arthropathy is present on the left at C2-C3. - Disc degenerative changes from C4 through C6 with large anterior osteophytes. 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 - Retrolisthesis of L5 on S1. - There is loss disc height at L4-L5 and L5-S1 - A small right basilar calcified granuloma is present measuring 8 mm in size. - Small amount of right paratracheal air seen on series 2, image 8 likely represents a small tracheal diverticulum. - Ectasia of the ascending aorta measuring up to 4 cm, which tapers at the level of the arch. - Mild cardiomegaly. - Moderate coronary artery calcification present. - Calcified small subcarinal lymph nodes noted. - The gallbladder contains multiple cholesterol gallstones without pericholecystic fluid identified. - Prostatic calcifications are identified. - Multilevel degenerative changes of the spine. - Mild retrolisthesis is seen involving L5 and S1. - Multilevel degenerative changes of the spine are identified. - There is atherosclerotic calcification of the abdominal aorta. MEREDITH ALONSO APRN 11/10/2014 Alicia No RCP - 11/09/2014 10:47 PM EDT Pt was found on restraint and could not perform any maneuvers at this stage, will continue to follow. Diomedes Cerda RN - 11/09/2014 11:49 AM EDT Patient arrived to floor via bed from 5W. Patient A&O x 3, lungs course and patient refused duoneb upon admission, heart rate regular. Patient has been voiding and had a BM on November 06.. Patient has a [place] J collar on. Soft limb restraints on bilaterally to upper and lower extremities. Patient has an IV in left upper arm. Patient states their pain level is 0/10. Patient is on the Ativan assessment scale, only scored a 2 for me. Was able to state where he was, why he is here, and that he was drunk when this happened. Neuro check completed and no overt deficits noted. Patient denies chest pain, shortness of breath, numbness or tingling. Patient oriented to room, call neo IS. RN will monitor patient. T Derrick Garsia MD - 11/09/2014 10:03 AM EDT Neurosurgery - Inpatient Progress Note ID: Derrick Hobson, 59 y.o. male s/p fall 3 days ago with a hyperdensity in right frontal lobe on CT Interval Hx: -WEN -Neurologically stable -Could not complete MRI scan yesterday Objective: Medications: Scheduled Meds: ??? LORazepam 1 mg Oral Q8H ??? ipratropium-albuterol 3 mL Nebulization Q4H ??? lidocaine 1 patch Transdermal Daily And ??? lidocaine 1 patch Transdermal Nightly ??? thiamine 50 mg Oral Daily ??? folic acid 1 mg Oral Daily ??? nicotine 21 mg Transdermal Daily And ??? nicotine 1 patch Transdermal Daily ??? beclomethasone 2 puff Inhalation BID ??? buPROPion 150 mg Oral BID ??? propranolol 80 mg Oral 4 Times Daily ??? citalopram 20 mg Oral Daily ??? gabapentin 900 mg Oral TID ??? senna-docusate 2 tablet Oral BID ??? acetaminophen 650 mg Oral Q6H ??? sodium chloride 0.9 % 5 mL Intravenous BID Continuous Infusions: PRN Meds:oxyCODONE, labetalol, HYDROmorphone, polyethylene glycol, bisacodyl, sodium chloride 0.9 %,lidocaine, nalOXone, LORazepam OR LORazepam OR LORazepam Vitals: Temp: [36.5 ??C (97.7 ??F)-37.2 ??C (99 ??F)] Heart Rate: [59-82] Resp: [16-22] BP: (107-192)/(72-123) SpO2: [89 %-97 %] I/O: Intake/Output Summary (Last 24 hours) at 11/09/14 1003 Last data filed at 11/09/14 0914 Gross per 24 hour Intake 480 ml Output 1300 ml Net -820 ml Labs: Recent Labs 11/07/14 0355 11/06/14 193 WBC 9.3 10.1* HGB 15.1 16.4 PLATELET 192 223 Recent Labs 11/07/14 03511/06/[id number] NA 140 144 K 3.6 3.7 CL 97* 101 CO2 30 29 BUN 5* 4* CREATININE 0.59* 0.69* Recent Labs 11/06/141929 PT 13.2 INR 1.0 Physical Exam: -NAD -AAOx3 -Speech fluent and appropriate. -PERRL. EOMI. -No facial asymmetry -Tongue midline -Motor: RUE:5/5 LUE:5/5 RLE: 5/5 LLE: 5/5 -No pronator drift -Sensation intact to LT x 4 Assessment/Plan:: 59 y.o. male with hyperdensity in right frontal lobe on CT after fall. Neurologically stable. Pleasefollow-up with Jerson Burciaga PA-C in 4 weeks with a repeat CT head. Neurosurgery will sign-off. Please page with any questions or concerns. Associated attestation - Jerson Miller MD - 11/09/2014 10:45 AM EDT I have seen and examined the patient, providing lord components as outlined below. I have reviewed the resident???s above note; my evaluation of the patient is below: Mr. Hobson has confusion possibly from alcohol withdrawal. Brain MRI, somewhat limited, does not show an obvious surgical abnormality. No operative indication at this time. Recommend follow up in adult neurosurgery clinic in 4 weeks with repeat head CT. Dorian Pena MD - 11/09/2014 9:28 AM EDT Trauma Daily Progress Note REPAIR TECHNICIAN Team Pager [phone] ID/Mechanism of injury:59 y.o. Male admitted on 11/06/14 s/p fall 2 days prior down stairs. Injury Intervention Follow-up Linear area of hyperdensity in the posterior lateral right frontal lobe, ? Irregular shaped IPH vs large developmental venous anomaly Neurosurgery consulted - MRI ordered - Serial neuro checks - Hold all anticoagulation - SBP <160 NS clinic in 4 weeks Cervical spine tenderness [place] J collar at all times - Serial exams Spine center consult in 4 weeks Mildly displaced right sixth anterolateral rib fracture with small associated effusion Resp Therapy consult - IS q1 hour with assistance Trauma clinic in 4 weeks In Hospital Issues: Pain Leukocytosis Elevated lactate ETOH abuse/withdrawl O2 dependence HTN- acute on chronic Deconditioning Procedures: None PMHx: Will need to contact patient's PCP on Sunday to confirm: Insomnia Anxiety/Depression Chronic pain Asthma HTN ETOH abuse 24 Hour Events/Subjective: Patient was very agitated over night per RN: was OOB, taking off his C-collar, and being disruptive.Security was ultimately called. The patient was placed in restraints Required a dose of labetalol in addition to his PRN doses for HTN in 190's. Required 2 doses on Ativan in addition to the withdrawal protocol. MRI was attempted but exam was incomplete due to patient compliance This AM, patient was very somnolent. Current Medications: ??? LORazepam 1 mg Oral Q8H ??? ipratropium-albuterol 3 mL Nebulization Q4H ??? lidocaine 1 patch Transdermal Daily And ??? lidocaine 1 patch Transdermal Nightly ??? thiamine 50 mg Oral Daily ??? folic acid 1 mg Oral Daily ??? nicotine 21 mg Transdermal Daily And ??? nicotine 1 patch Transdermal Daily ??? beclomethasone 2 puff Inhalation BID ??? buPROPion 150 mg Oral BID ??? propranolol 80 mg Oral 4 Times Daily ??? citalopram 20 mg Oral Daily ??? gabapentin 900 mg Oral TID ??? senna-docusate 2 tablet Oral BID ??? acetaminophen 650 mg Oral Q6H ??? sodium chloride 0.9 % 5 mL Intravenous BID Vital Signs: VITALS (24hr Range): Temp Temp: [36.5 ??C (97.7 ??F)-37.2 ??C (99 ??F)] , HR Heart Rate: [59-82] , BP BP: (107-192)/(72-123) , RR Resp: [14-22] , SpO2 SpO2: [89 %-97 %] I/O: Intake/Output Summary (Last 24 hours) at 11/09/14927 Last data filed at 11/09/14913 Gross per 24 hour Intake 480 ml Output 1300 ml Net -820 ml Physical Exam: GENERAL: Awake, alert, more calm HEENT: Normocephalic, atraumatic; [place] J collar in place- cervical spine tenderness on exam C2-5 LUNG: Equal, breath sounds bilaterally; Scattered wheezes bilaterally. Tenderness to palpation over right chest. No crepitus. CARDIAC: Regular rate and rhythm or without murmur or extra heart sounds ABDOMEN/GI: Soft, non-distended, no abrasions and no contusions, Non tender to palpation over entireabdomen SKIN: No rashes; WWP NEURO: Wakes to voice, more cooperative today; Oriented x3 Labs: Recent Labs 11/07/14 0355 11/06/14 1930 WBC 9.3 10.1* HGB 15.1 16.4 HCT 44.1 45.9 PLATELET 192 223 PT -- 13.2 INR -- 1.0 PTT -- 29 Recent Labs 11/07/14 0355 11/06/14 1930 NA 140 144 K 3.6 3.7 CL 97* 101 CO2 30 29 BUN 5* 4* CREATININE 0.59* 0.69* GLUCOSE 134 108 CALCIUM 8.5 8.9 Microbiology: - None New Imaging: MRI [place]- pending Assessment: Injury Linear area of hyperdensity in the posterior lateral right frontal lobe, ? Irregular shaped IPH vs large developmental venous anomaly Cervical spine tenderness Mildly displaced right sixth anterolateral rib fracture with small associated effusion Other Active Issues: Pain Leukocytosis Elevated lactate ETOH abuse/withdrawl O2 dependence HTN- acute on chronic Deconditioning Plan: NEURO: - Pain: Cont scheduled Tylenol; On oxycodone to 5-15mg q4 hour PRN pain; Cont lidoderm patches to R chest wall for rib fx - Hx Chronic pain: Cont home gabapentin; Hold home flexeril - ETOH withdrawal: Cont Ativan Assessment scale for now; on scheduled oral ativan to 1mg q8 hours; Cont thiamine/folate oral x3 days, then MVI daily - Hx Anxiety/Depression: Cont home Celexa and Wellbutrin; Hold home Trazodone PRN for now - Hx Insomnia: Hold home Trazodone and Ambien for now - IPH vs. Vascular anomaly: NS following, hold anticoagulation, Keep SBP <160, Serial neuro checks; MRI of the brain was attempted but incomplete. SPINE: - TLS cleared in trauma bay - Cont [place] J collar today given tenderness on exam and mental status; Reassess daily--pt will likely need to be seen by outpatient spine center if unable to be cleared PULM: - Hx tobacco abuse: Nicotine patch - Rib fx: RT following for aggressive pulm toilet; Wean O2 as tolerated, Goal SpO2 >88% given smoking hx - Hx asthma: Cont home QVAR; Add q4 hour duonebs today CARDIAC: - Follow HR, BP trend - HTN: Acute on chronic; Cont home Indural today in short acting form (home dose is 360mg SR daily);Labetalol PRN SBP >160 FEN/GI: HCIVF given good PO intake Diet: Regular NBO: Ordered, LBM PRISON KEEPER LFTs WNL 11/07 RENAL: - Voiding, Follow UOP, Cr - Monitor lytes, replete as indicated HEME: - Follow CBC ID: - Follow WBC, temp trend - Leukocytosis: Improved, follow trend - [place] cx for temp spike >38.5 PT/OT: Ordered PROPHYLAXIS: 1. DVT prophylaxis: Hold s/t head injury, Obtain BLE duplex when able (ordered) 2. GI prophylaxis: None, Tolerating diet and no hx of GERD DISPO/Discharge Planning: Tx to floor status, Full code CONSULTS: Neurosurgery: - Close neurological observation, q2 checks. - SBP <160 - Hold anticoagulation - GI PPx - MRI today for evaluation of hyperdensity - Further care per trauma Active issues to be addressed at discharge/incidental findings: - Patchy areas of hypoattenuation the white matter probably representing small vessel ischemic change - Extensive facet arthropathy is present on the left at C2-C3. - Disc degenerative changes from C4 through C6 with large anterior osteophytes. 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 - Retrolisthesis of L5 on S1. - There is loss disc height at L4-L5 and L5-S1 - A small right basilar calcified granuloma is present measuring 8 mm in size. - Small amount of right paratracheal air seen on series 2, image 8 likely represents a small tracheal diverticulum. - Ectasia of the ascending aorta measuring up to 4 cm, which tapers at the level of the arch. - Mild cardiomegaly. - Moderate coronary artery calcification present. - Calcified small subcarinal lymph nodes noted. - The gallbladder contains multiple cholesterol gallstones without pericholecystic fluid identified. - Prostatic calcifications are identified. - Multilevel degenerative changes of the spine. - Mild retrolisthesis is seen involving L5 and S1. - Multilevel degenerative changes of the spine are identified. - There is atherosclerotic calcification of the abdominal aorta. EFRANÍ LOPEZ MD 11/09/2014 TRAUMA ATTENDING NOTE: Pt seen and examined with the resident staff on AM rounds and I agree with the above note and plan with the following additions/modifications. Events of last night noted. Pt much more quiet this AM most likely secondary to the added ativan. He is somnolent but arousable. Following commands this AM all 4. Lungs clear. Abdomen is soft. Plan is to keep in ISCU today and continue ativan assessment scalealong with scheduled dosing. No need for ICU at this time. Otherwise as noted above. Dena So MD - 11/09/2014 2:58 AM EDT Nursing requested evaluation of Mr Hobson several times throughout the night. Per nursing, patient was OOB, taking off his C-collar, and being disruptive. By the time I saw him, he was in bed with C-collar on; he did not appear significantly confused or agitated. SBP was 185. Advised nursing give 10 mg IV labetalol prn. Patient also to receive scheduled ativan per AAS. Patient also requested pain meds to help sleep; gave melatonin instead. @0220 - Patient w/ SBP 192. Nursing noted patient still being disruptive. Gave one time 10 mg IV labetalol (not scheduled for prn) and a one time dose of 1 mg oral ativan in addition to scheduled dose of 1 mg. Advised nursing also give prn labetalol that would be available in approx 30 min. @0315 - Call from nursing as patient was increasingly aggressive requiring them to call security. Ordered soft restraints. Patient appears confused; oriented to person but not place or date. Patient appears more calm after security had patient secured in bed with restraints. HR 70s, O2 sat 93; BP 166.Nursing notes patient scoring higher on AAS. Advised giving next available dose 1 hour early. Patient otherwise stable at this time. Will continue to follow. Nelson Berry RN - 11/08/2014 2:12 PM EDT Report given to ABEL Salazar on . Pt transferred to [facility] in bed. At time of transfer Pt A+Ox4, RN aware AAS due at this time. Pt remains on 3L NC, no SOB, pain 10/10. Bed alarm on, all belongings transferred to [facility]. Tres Elizondo RCP - 11/08/2014 1:09 PM EDT Called to room for assistance with secretions clearance. Pt was awake and alert, introductions made.Airway patent, breathing 16 with no noted WOB, on RA. Pt stated rib pain 6/10 increase with deep breathing. Pt was able to do 500-600 on the IS with fair effort. Pt was able to use the [place] well and had a good productive cough, pt did state pain with coughing. Plan for pt to use both Q1 hour, plandiscussed with pt and RN. Sierra Murillo MD - 11/08/2014 8:28 AM EDT Neurosurgery - Inpatient Progress Note ID: Derrick Hobson, 59 y.o. male s/p fall 2 days ago with a hyperdensity in right frontal lobe on CT concerning for IPH vs DVA vs mass Interval Hx: -WEN -Neurologically stable Objective: Medications: Scheduled Meds: ??? LORazepam 1 mg Oral Q8H ??? ipratropium-albuterol 3 mL Nebulization Q4H ??? lidocaine 1 patch Transdermal Daily And ??? lidocaine 1 patch Transdermal Nightly ??? thiamine 50 mg Oral Daily ??? folic acid 1 mg Oral Daily ??? nicotine 21 mg Transdermal Daily And ??? nicotine 1 patch Transdermal Daily ??? beclomethasone 2 puff Inhalation BID ??? buPROPion 150 mg Oral BID ??? propranolol 80 mg Oral 4 Times Daily ??? citalopram 20 mg Oral Daily ??? gabapentin 900 mg Oral TID ??? senna-docusate 2 tablet Oral BID ??? acetaminophen 650 mg Oral Q6H ??? sodium chloride 0.9 % 5 mL Intravenous BID Continuous Infusions: PRN Meds:labetalol, oxyCODONE, HYDROmorphone, polyethylene glycol, bisacodyl, sodium chloride 0.9 %,lidocaine, nalOXone, LORazepam OR LORazepam OR LORazepam Vitals: Temp: [36.4 ??C (97.5 ??F)-37.2 ??C (99 ??F)] Heart Rate: [57-89] Resp: [10-23] BP: (108-178)/(87-116) SpO2: [89 %-96 %] I/O: Intake/Output Summary (Last 24 hours) at 11/08/14 0828 Last data filed at 11/08/14 0800 Gross per 24 hour Intake 840 ml Output 3250 ml Net -2410 ml Labs: Recent Labs 11/07/14 0355 11/06/14 1930 WBC 9.3 10.1* HGB 15.1 16.4 PLATELET 192 223 Recent Labs 11/07/14 0355 11/06/14 193 NA 140 144 K 3.6 3.7 CL 97* 101 CO2 30 29 BUN 5* 4* CREATININE 0.59* 0.69* Recent Labs 11/06/14 1930 PT 13.2 INR 1.0 Physical Exam: -NAD -AAOx3 -Speech fluent and appropriate. -PERRL. EOMI. -No facial asymmetry -Tongue midline -Motor: RUE:5/5 LUE:5/5 RLE: 5/5 LLE: 5/5 -No pronator drift -Sensation intact to LT x 4 Assessment/Plan:: 59 y.o. male with hyperdensity in right frontal lobe on CT after fall. Neurologically stable. - Close neurological observation, q2 checks. - SBP <160 - Hold anticoagulation - GI PPx - MRI today for evaluation of hyperdensity - Further care per trauma Associated attestation - Jerson Miller MD - 11/08/2014 2:09 PM EDT I have seen and examined the patient, providing lord components as outlined below. I have reviewed the resident???s above note; my evaluation of the patient is below: I agree with the findings and assessment and plan of Dr. Murillo. MRI Today. Neurologically stable. , Meredith Galvan APRN - 11/08/2014 6:34 AM EDT Trauma Daily Progress Note REPAIR TECHNICIAN Team Pager [phone] ID/Mechanism of injury:59 y.o. Male admitted on 11/06/14 s/p fall 2 days prior down stairs. Injury Intervention Follow-up Linear area of hyperdensity in the posterior lateral right frontal lobe, ? Irregular shaped IPH vs large developmental venous anomaly Neurosurgery consulted - MRI ordered - Serial neuro checks - Hold all anticoagulation - SBP <160 NS clinic in 4 weeks Cervical spine tenderness [place] J collar at all times - Serial exams Spine center consult in 4 weeks Mildly displaced right sixth anterolateral rib fracture with small associated effusion Resp Therapy consult - IS q1 hour with assistance Trauma clinic in 4 weeks In Hospital Issues: Pain Leukocytosis Elevated lactate ETOH abuse/withdrawl O2 dependence HTN- acute on chronic Deconditioning Procedures: None PMHx: Will need to contact patient's PCP on Sunday to confirm: Insomnia Anxiety/Depression Chronic pain Asthma HTN ETOH abuse 24 Hour Events: - UA negative - Lactate normalized - Scheduled ativan increased to q6 hours - Consistently scoring 5-8 on AAS - Home medications restarted, HTN improved - Nicotine patch started - MRI [place] pending per NS Current Medications: ??? LORazepam 1 mg Oral Q8H ??? ipratropium-albuterol 3 mL Nebulization Q4H ??? lidocaine 1 patch Transdermal Daily And ??? lidocaine 1 patch Transdermal Nightly ??? thiamine 50 mg Oral Daily ??? folic acid 1 mg Oral Daily ??? nicotine 21 mg Transdermal Daily And ??? nicotine 1 patch Transdermal Daily ??? beclomethasone 2 puff Inhalation BID ??? buPROPion 150 mg Oral BID ??? propranolol 80 mg Oral 4 Times Daily ??? citalopram 20 mg Oral Daily ??? gabapentin 900 mg Oral TID ??? senna-docusate 2 tablet Oral BID ??? acetaminophen 650 mg Oral Q6H ??? sodium chloride 0.9 % 5 mL Intravenous BID Vital Signs: VITALS (24hr Range): Temp Temp: [36.4 ??C (97.5 ??F)-37.2 ??C (99 ??F)] , HR Heart Rate: [57-84] , BP BP: (108-177)/(87-122) , RR Resp: [10-23] , SpO2 SpO2: [92 %-96 %] I/O: Intake/Output Summary (Last 24 hours) at 11/08/14 1352 Last data filed at 11/08/14 0800 Gross per 24 hour Intake 720 ml Output 1950 ml Net -1230 ml Physical Exam: GENERAL: Awake, alert, more calm HEENT: Normocephalic, atraumatic; [place] J collar in place- cervical spine tenderness on exam C2-5 LUNG: Equal, breath sounds bilaterally; Scattered wheezes bilaterally. Tenderness to palpation over right chest. No crepitus. CARDIAC: Regular rate and rhythm or without murmur or extra heart sounds ABDOMEN/GI: Soft, non-distended, no abrasions and no contusions, Non tender to palpation over entireabdomen SKIN: No rashes; WWP NEURO: Wakes to voice, more cooperative today; Oriented x3 Labs: Recent Labs 11/07/14 0355 11/06/14 1930 WBC 9.3 10.1* HGB 15.1 16.4 HCT 44.1 45.9 PLATELET 192 223 PT -- 13.2 INR -- 1.0 PTT -- 29 Recent Labs 11/07/14 0355 11/06/14 1930 NA 140 144 K 3.6 3.7 CL 97* 101 CO2 30 29 BUN 5* 4* CREATININE 0.59* 0.69* GLUCOSE 134 108 CALCIUM 8.5 8.9 Microbiology: - None New Imaging: MRI [place]- pending Assessment: Injury Linear area of hyperdensity in the posterior lateral right frontal lobe, ? Irregular shaped IPH vs large developmental venous anomaly Cervical spine tenderness Mildly displaced right sixth anterolateral rib fracture with small associated effusion Other Active Issues: Pain Leukocytosis Elevated lactate ETOH abuse/withdrawl O2 dependence HTN- acute on chronic Deconditioning Plan: NEURO: - Pain: Cont scheduled Tylenol; Increase oxycodone to 5-15mg q4 hour PRN pain; Cont lidoderm patchesto R chest wall for rib fx - Hx Chronic pain: Cont home gabapentin; Hold home flexeril - ETOH withdrawal: Cont Ativan Assessment scale for now; Decrease scheduled oral ativan to 1mg q8 hours; Cont thiamine/folate oral x3 days, then MVI daily - Hx Anxiety/Depression: Cont home Celexa and Wellbutrin; Hold home Trazodone PRN for now - Hx Insomnia: Hold home Trazodone and Ambien for now - IPH vs. Vascular anomaly: NS following, hold anticoagulation, Keep SBP <160, Serial neuro checks; MRI of the brain today to assess lesion SPINE: - TLS cleared in trauma bay - Cont [place] J collar today given tenderness on exam and mental status; Reassess daily--pt will likely need to be seen by outpatient spine center if unable to be cleared PULM: - Hx tobacco abuse: Nicotine patch - Rib fx: RT following for aggressive pulm toilet; Wean O2 as tolerated, Goal SpO2 >88% given smoking hx - Hx asthma: Cont home QVAR; Add q4 hour duonebs today CARDIAC: - Follow HR, BP trend - HTN: Acute on chronic; Cont home Indural today in short acting form (home dose is 360mg SR daily);Labetalol PRN SBP >160 FEN/GI: HCIVF given good PO intake Diet: Advance to regular today NBO: Ordered, LBM PRISON KEEPER LFTs WNL 11/07 RENAL: - Voiding, Follow UOP, Cr - Monitor lytes, replete as indicated HEME: - Follow CBC ID: - Follow WBC, temp trend - Leukocytosis: Improved, follow trend - [place] cx for temp spike >38.5 PT/OT: Ordered PROPHYLAXIS: 1. DVT prophylaxis: Hold s/t head injury, Obtain BLE duplex when able (ordered) 2. GI prophylaxis: None, Tolerating diet and no hx of GERD DISPO/Discharge Planning: Tx to floor status, Full code CONSULTS: Neurosurgery: - Close neurological observation, q2 checks. - SBP <160 - Hold anticoagulation - GI PPx - MRI today for evaluation of hyperdensity - Further care per trauma Active issues to be addressed at discharge/incidental findings: - Patchy areas of hypoattenuation the white matter probably representing small vessel ischemic change - Extensive facet arthropathy is present on the left at C2-C3. - Disc degenerative changes from C4 through C6 with large anterior osteophytes. 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 - Retrolisthesis of L5 on S1. - There is loss disc height at L4-L5 and L5-S1 - A small right basilar calcified granuloma is present measuring 8 mm in size. - Small amount of right paratracheal air seen on series 2, image 8 likely represents a small tracheal diverticulum. - Ectasia of the ascending aorta measuring up to 4 cm, which tapers at the level of the arch. - Mild cardiomegaly. - Moderate coronary artery calcification present. - Calcified small subcarinal lymph nodes noted. - The gallbladder contains multiple cholesterol gallstones without pericholecystic fluid identified. - Prostatic calcifications are identified. - Multilevel degenerative changes of the spine. - Mild retrolisthesis is seen involving L5 and S1. - Multilevel degenerative changes of the spine are identified. - There is atherosclerotic calcification of the abdominal aorta. MEREDITH ALONSO APRN 11/08/2014 Juancho Mcgee MD - 11/07/2014 10:20 AM EDT Neurosurgery - Inpatient Progress Note ID: Derrick Hobson, 59 y.o. male s/p fall 2 days ago with a hyperdensity in right frontal lobe on CT concerning for IPH vs DVA vs mass Interval Hx: -WEN -Neurologically stable -Ativan given for CIWA scoring -Continues to have a headache and pain all over Objective: Medications: Scheduled Meds: ??? acetaminophen 1,000 mg Oral Q6H ??? lidocaine 1 patch Transdermal Daily And ??? lidocaine 1 patch Transdermal Nightly ??? thiamine 50 mg Oral Daily ??? folic acid 1 mg Oral Daily ??? LORazepam 1 mg Oral Q8H ??? nicotine 21 mg Transdermal Daily And ??? [START ON 11/08/2014] nicotine 1 patch Transdermal Daily ??? sodium chloride 0.9 % 5 mL Intravenous BID ??? famotidine 20 mg Oral BID ??? chlorhexidine 15 mL Oral Q12H Continuous Infusions: PRN Meds:labetalol, oxyCODONE, HYDROmorphone, sodium chloride 0.9 %, lidocaine, nalOXone, LORazepam OR LORazepam OR LORazepam Vitals: Temp: [36.2 ??C (97.2 ??F)-36.8 ??C (98.2 ??F)] Heart Rate: [75-96] Resp: [11-22] BP: (108-192)/(79-151) SpO2: [90 %-96 %] I/O: Intake/Output Summary (Last 24 hours) at 11/07/14 1020 Last data filed at 11/07/14 0900 Gross per 24 hour Intake 1084 ml Output 1850 ml Net -766 ml Labs: Recent Labs 11/07/14 0355 11/06/14 193 WBC 9.3 10.1* HGB 15.1 16.4 PLATELET 192 223 Recent Labs 11/07/14 0355 11/06/14 193 NA 140 144 K 3.6 3.7 CL 97* 101 CO2 30 29 BUN 5* 4* CREATININE 0.59* 0.69* Recent Labs 11/06/14 193 PT 13.2 INR 1.0 Physical Exam: -NAD -AAOx3 -Speech fluent and appropriate. -PERRL. EOMI. -No facial asymmetry -Tongue midline -Motor: RUE:5/5 LUE:5/5 RLE: 5/5 LLE: 07/07 -No pronator drift -Sensation intact to LT x 4 Assessment/Plan:: 59 y.o. male with hyperdensity in right frontal lobe on CT after fall. Neurologically stable. - Close neurological observation, q2 checks. - SBP <160 - Hold anticoagulation - GI PPx - MRI today for evaluation of hyperdensity - Further care per trauma Associated attestation - Jerson Miller MD - 11/07/2014 10:53 AM EDT I have seen and examined the patient, providing lord components as outlined below. I have reviewed the resident???s above note; my evaluation of the patient is below: Needs MRI brain with and without contrast. , Meredith Galvan APRN - 11/07/2014 6:18 AM EDT TRAUMA & ACUTE SURGICAL CARE SERVICE TERTIARY SURVEY REPAIR TECHNICIAN Team Pager [phone] ID/MECHANISM OF INJURY: Derrick Hobson is a 59 y.o. Male s/p fall down stairs on 11/05/14. HISTORY OF PRESENT ILLNESS: Derrick Hobson is a 59 y.o. male presents to [facility] 2 days after he feel down 1/2 flight of stairs, on 11/06. Patient was drinking alcohol as per his usual routine and feel down half a flight of stair and was knocked unconscious. When he awoke an unknown length of time he was disoriented to place and situation. He was helped home by friends. 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 He presented to [facility] ED where a head CT showed a small IPH for which he was transferred to [facility] for furthercare. PMHx: Will need to contact patient's PCP on Sunday to confirm: Insomnia Anxiety/Depression Chronic pain Asthma HTN HOME MEDICATIONS: Per [facility] in [facility] on 11/06: Prescriptions prior to admission Medication Sig Dispense Refill Last Dose ??? gabapentin (NEURONTIN) 300 mg Capsule Take 900 mg by mouth 3 times daily. ??? zolpidem (AMBIEN) 10 mg Tablet Take 10 mg by mouth nightly as needed for Sleep. ??? cyclobenzaprine (FLEXERIL) 5 mg Tablet Take 5 mg by mouth daily as needed for Muscle spasms. ??? citalopram (CELEXA) 20 mg Tablet Take 20 mg by mouth daily. ??? traZODone (DESYREL) 100 mg Tablet Take 100 mg by mouth nightly as needed for Sleep. 1-2 tablets nightly PRN ??? traZODone (DESYREL) 50 mg Tablet Take 50 mg by mouth daily as needed (Anxiety). ??? propranolol (INDERAL LA) 160 mg Capsule,Sustained Action 24 hr Take 320 mg by mouth daily. ??? buPROPion (WELLBUTRIN SR) 150 mg Tablet Sustained Release Take 150 mg by mouth 2 times daily. ??? beclomethasone (QVAR) 40 mcg/actuation Aerosol Inhale 2 puffs into the lungs 2 times daily. CURRENT MEDICATIONS: labetalol (NORMODYNE,TRANDATE) injection 10 mg; oxyCODONE (ROXICODONE) immediate release tablet 5-10mg; HYDROmorphone (DILAUDID) injection 0.4 mg; acetaminophen (TYLENOL) tablet 1,000 mg; lidocaine (LIDODERM) 5 %(700 mg/patch) patch 1 patch AND lidocaine (LIDODERM) patch REMOVAL; thiamine tablet 50 mg; folic acid (FOLVITE) tablet 1,000 mcg; LORazepam (ATIVAN) tablet 1 mg nicotine (NICODERM CQ) 21 mg/24 hr patch 21 mg AND [START ON 11/08/2014] nicotine (NICODERM CQ) patch REMOVAL; sodium chloride 0.9 % flush 5 mL; sodium chloride 0.9 % flush 5-20 mL; lidocaine (XYLOCAINE) 10 mg/mL (1 %) injection 3 mg; famotidine (PEPCID) tablet 20 mg OR [DISCONTINUED] famotidine(PEPCID) injection 20 mg; nalOXone (NARCAN) injection 0.2 mg; chlorhexidine (PERIDEX) 0.12 % oral solution 15 mL labetalol, oxyCODONE, HYDROmorphone, sodium chloride 0.9 %, lidocaine, nalOXone, LORazepam OR LORazepam OR LORazepam ALLERGIES: No Known Allergies FAMILY HISTORY: Non contributory in any family member SOCIAL HISTORY: Alcohol: Drinks 12 beers/day for many years Tobacco: 1 PPD for many years Drug: Marijuana occationally REVIEW OF SYSTEMS: complete 10 system ROS performed with pertinent findings below. Patient denies vision or hearing changes from baseline, trouble swallowing, chest pain, SOB, n/v and/or numbness in any extremity. He does report a frontal MCNAIR, cervical neck pain, and R chest wall pain. All other systems negative. PHYSICAL EXAM: VITALS: Last value Range last 24 hrs Temperature Temp: 36.8 ??C (98.2 ??F) Temp: [36.2 ??C (97.2 ??F)-36.8 ??C (98.2 ??F)] Heart Rate Heart Rate: 86 Heart Rate: [75-96] Blood Pressure BP: 178/104 mmHg BP: (144-178)/(79-109) Respiratory Rate Resp: 20 Resp: [11-22] SpO2 SpO2: 93 % SpO2: [90 %-96 %] I/O last 3 completed shifts: In: 984 [P.O.:100; I.V.:884] Out: 1850 [Urine:1850] GENERAL: Awake, alert, confused to place, appears restless in bed HEAD: Normocephalic, without obvious abnormality, atraumatic FACE: Pupils: 2mm, equal, round, reactive to light, no periorbital ecchymoses; Midface: No tenderness, no swelling, no contusions, no lacerations and no abrasions over entire face Oropharynx: Nonbloody, moist mucous membranes, no lacerations, no malocclusion and no chipped or missing teeth; Poor dental hygiene noted NECK:Tenderness to palpation over C2-5 and over para spinal area, trachea midline, no masses, no swelling, no contusions and no abrasions LUNG: Equal, clear breath sounds bilaterally. Tenderness to palpation over right chest. No crepitus. CARDIAC: Regular rate and rhythm or without murmur or extra heart sounds ABDOMEN/GI: Soft, non-distended, no abrasions and no contusions, Non tender to palpation over entireabdomen PELVIS: Stable to AP and/or lateral compression EXTREMITIES: Normal and symmetric movement, normal range of motion, no joint swelling SPINE: No deformity, no stepoffs, no tenderness to palpation and no abrasions over thoracic or lumbar spine; Cervical spine as above SKIN: No lacerations, abrasions or contusions on complete skin exam NEURO: Mental Status: awake and alert, appears anxious with mild tremor; Mild diaphoresis; Oriented x3, unclear or place but is easily reoriented Cranial Nerves: CN II - XII intact Motor: normal 5/5 strength in all tested muscle groups Sensory: no sensory deficits noted LABORATORY: Recent Labs 11/07/1435411/06/140 WBC 9.3 10.1* HGB 15.1 16.4 HCT 44.1 45.9 PLATELET 192 223 PT -- 13.2 INR -- 1.0 PTT -- 29 Recent Labs 11/07/1435411/06/141929 NA 140 144 K 3.6 3.7 CL 97* 101 CO2 30 29 BUN 5* 4* CREATININE 0.59* 0.69* GLUCOSE 134 108 CALCIUM 8.5 8.9 RADIOLOGY: Chest & Pelvis XR- FINDINGS: Chest: A right basal process obscures the right diaphragm and right CP angle. The remaining lungs and left pleural space are clear without evidence of pneumothorax or pleural effusion. The heart, ayush, and pulmonary vascularity are within normal limits. No pneumoperitoneum is seen and osseous structures are normal. Pelvis: The distended bladder opacified by excreted contrast obscures evaluation of the sacrum. Bones: No fracture is present. Joints: No dislocation is seen. Normal alignment Impression 1. No fracture or dislocation 2. Right basal process representing any combination of effusion, atelectasis or consolidation. CT Head & Spine- CT head: The ventricles are normal in size and contour. There is a linear area of hyperdensity in the posterior lateral right frontal lobe with an appearance is unusual for hemorrhage, and this appears to extend to the ependymal surface of the ventricle. 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 There are patchy areas of hypoattenuation the white matter probably representing small vessel ischemic change. No calvarial fracture. Cervical spine: There is straightening of the normal cervical lordosis. There is no acute cervical spine fracture. Extensive facet arthropathy is present on the left at C2-C3. There are disc degenerative changes from C4 through C6 with large anterior osteophytes. 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 Thoracic spine: Images are limited by lack of small [id number] axial images. Alignment of the thoracic spine appears normal. There is no acute thoracic spine fracture. Lumbar spine: There is retrolisthesis of L5 on S1. Alignment is otherwise preserved. There is loss disc height at L4-L5 and L5-S1. Only 5 mm thick axial slices are available. No acute fracture is identified. IMPRESSION: 1. Linear area of hyperdensity in the posterior lateral right frontal lobe. Differential for this appearance could include a large developmental venous anomaly versus a small parenchymal, unusually-shaped, hemorrhage. MR could distinguish between these two if clinically indicated. 2. No cervical, thoracic, or lumbar spine fracture. CT Chest/Abd/pelvis- FINDINGS: Chest: There is bibasilar dependent atelectasis. A right-sided small effusion is noted tracking into the major fissure. No pneumothorax seen. A small right basilar calcified granuloma is present measuring 8 mm in size. No suspicious parenchymal abnormality. Large airways are clear. Small amount of right paratracheal air seen on series 2, image 8 likely represents a small tracheal diverticulum. Visualized thyroid is unremarkable. There is ectasia of the ascending aorta measuring up to 4 cm, which tapers at the level of the arch. Though somewhat limited due to contrast bolus timing, however, no dissection flap identified. Periaortic fat is unremarkable. No mediastinal hematoma identified. There is mild cardiomegaly. No pericardial effusion. There is moderate coronary artery calcification present. Collapse of the esophagus precludes assessment. No mediastinal or axillary adenopathy. Calcified small subcarinal lymph nodes noted. There is a minimally displaced anterolateral right sixth rib fracture. Abdomen/pelvis: No parenchymal lesions identified the liver. The spleen, pancreas, and adrenals are normal. The gallbladder contains multiple cholesterol gallstones without pericholecystic fluid identified. No free intraperitoneal fluid or air. The stomach contains layering fluid. Unopacified small bowel is nondilated. The colon demonstrates a moderate amount of stool seen in the cecum/ascending as well as redundancy of the sigmoid. No inguinal or mesenteric adenopathy. No renal laceration. No hydronephrosis identified. The bladder is mildly distended with urine. Prostatic calcifications are identified. No diastases of the SI joints or pubic symphysis. There are multilevel degenerative changes of the spine. Mild retrolisthesis is seen involving L5 and S1. Multilevel degenerative changes of the spine are identified. No abdominal aortic aneurysm. No retroperitoneal hematoma. There is atherosclerotic calcification of the abdominal aorta. IMPRESSION: 1. Mildly displaced right sixth anterolateral rib fracture. 2. Small right effusion. 3. Ectasia of the descending thoracic aorta up to 4 cm with tapering at the level of the aortic arch. No dissection or mediastinal hematoma identified. 4. No evidence of acute traumatic injury to the abdomen or pelvis. MRI Brain- Pending Incidental Radiographic Findings: - Patchy areas of hypoattenuation the white matter probably representing small vessel ischemic change - Extensive facet arthropathy is present on the left at C2-C3. - Disc degenerative changes from C4 through C6 with large anterior osteophytes. 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 - Retrolisthesis of L5 on S1. - There is loss disc height at L4-L5 and L5-S1 - A small right basilar calcified granuloma is present measuring 8 mm in size. - Small amount of right paratracheal air seen on series 2, image 8 likely represents a small tracheal diverticulum. - Ectasia of the ascending aorta measuring up to 4 cm, which tapers at the level of the arch. - Mild cardiomegaly. - Moderate coronary artery calcification present. - Calcified small subcarinal lymph nodes noted. - The gallbladder contains multiple cholesterol gallstones without pericholecystic fluid identified. - Prostatic calcifications are identified. - Multilevel degenerative changes of the spine. - Mild retrolisthesis is seen involving L5 and S1. - Multilevel degenerative changes of the spine are identified. - There is atherosclerotic calcification of the abdominal aorta. ASSESSMENT/SUMMARY OF INJURIES: 59 y.o. male s/p fall down stairs on 11/04. Injuries include: - Linear area of hyperdensity in the posterior lateral right frontal lobe, ? Irregular shaped IPH vslarge developmental venous anomaly - Mildly displaced right sixth anterolateral rib fracture with small associated effusion Injuries identified on Tertiary Survey: 1. Cervical spine tenderness Other Active Issues: Pain Leukocytosis Elevated lactate ETOH abuse/withdrawl O2 dependence HTN- acute on chronic Deconditioning PLAN: ?? NEURO: - Pain: Cont scheduled Tylenol; Cont oxycodone 5-10mg q4 hour PRN pain; Add lidoderm patches to R chest wall for rib fx - Hx Chronic pain: Cont home gabapentin today; Hold home flexeril - ETOH withdrawal: Cont Ativan Assessment scale for now; Increase scheduled oral ativan to 1mg q6 hours; Cont banana bag for today, then thiamine/folate oral x3 days, then MVI daily - Hx Anxiety/Depression: Cont home Celexa and Wellbutrin today; Hold home Trazodone PRN for now - Hx Insomnia: Hold home Trazodone and Ambien for now - IPH vs. Vascular anomaly: NS following, hold anticoagulation, Keep SBP <160, Serial neuro checks; MRI of the brain today to assess lesion ?? SPINE: - TLS cleared in trauma bay - Cont [place] J collar today given tenderness on exam and mental status; Reassess again tomorrow ?? PULM: - Hx tobacco abuse: Nicotine patch - Rib fx: Consult RT today for aggressive pulm toilet; Wean O2 as tolerated, Goal SpO2 >92% - Hx asthma: Cont home QVAR today ?? CARDIAC: - Follow HR, BP trend - HTN: Acute on chronic; Restart home Indural today in short acting form (home dose is 360mg SR daily); Labetalol PRN SBP >160 ?? FEN/GI: Cont banana bag @ 100cc/hour; Will start thiamin/folate tomorrow PO x3 days, then MVI daily given ETOH use ?? Diet: Advance to clears for now given mental status and withdrawal; Advance to regular diet latertoday if improved and stabilized ?? 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 Check LFTs in AM ?? RENAL: - Voiding, Follow UOP, Cr - Monitor lytes, replete as indicated - Send UA to complete trauma workup ?? HEME: - Follow CBC - Elevated lactate: Recheck now, resuscitate until normalized ?? ID: - Follow WBC, temp trend - Leukocytosis: Improved, follow trend - [place] cx for temp spike >38.5 ?? CONSULTS: ?? Neurosurgery: - Close neurological observation, q2 checks. - SBP <160 - Hold anticoagulation - GI PPx - MRI today for evaluation of hyperdensity - Further care per trauma ?? PT/OT: Ordered ?? PROPHYLAXIS: 1. DVT prophylaxis: Hold s/t head injury, Obtain BLE duplex when able (ordered) 2. GI prophylaxis: None, Tolerating clears and no hx of GERD ?? DISPO/Discharge Planning: NSCU status, Full code MEREDITH Galvan CHELLY ALONSO 11/07/2014 documented in this encounter H&P Notes Dorian Pena MD - 11/06/2014 9:57 PM EDT TRAUMA & ACUTE SURGICAL CARE ADMISSION HISTORY AND PHYSICAL Patient Name: Derrick Hobson Level of Activation: Alert MR#: [id number] [ ]Scene Call or [X]Hospital Transfer : [id number] CC/MECHANISM OF INJURY: 59 y.o. Male s/p fall down 1/2 flight stairs HISTORY OF PRESENT ILLNESS: Derrick Hobson is a 59 y.o. male presents to [facility] [place] 2 days after he feel down 1/2 flight of stairs. Patient was drinking alcohol as per his usual routine and feel down half a flight of stair and was knocked unconscious. When he awoke an unknown length of time he was disoriented to place and situation.He was helped home by friends. 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 He was complaining of band-like headache and R chest pain. He presented to OSH ED where a head CT showed a small IPH for which he was transferred here. Primary survey revealed: intact airway, equal breath sounds/respirations, present 2+ peripheral pulses with stable vital signs and no signs of bleeding, GCS 15 (6 - Follows simple motor commands, 5 - Alert and oriented, 4 - Opens eyes on own), and complete exposure. Secondary survey is as follows. PAST MEDICAL AND SURGICAL HISTORY: HTN, depression, asthma, COPD, EtOH, Asthma ALLERGIES: NKDA MEDICATIONS: Celexa, gabapentin, trazodone, ambien, ASA, inderol, wellbutrin, HCTZ Patient unsure of dosages FAMILY HISTORY: non-contributory in any family member SOCIAL HISTORY: Alcohol: drinks 12 beers/day, every day Tobacco: 1ppd x 40yrs Drug: marijuana REVIEW OF SYSTEMS: complete 10 system ROS performed with pertinent findings below. Pertinent items are noted in HPI. PHYSICAL EXAM: VITALS: Filed Vitals: 11/06/14 2134 BP: Pulse: Temp: 36.2 ??C (97.2 ??F) Resp: GENERAL: alert, awake and no apparent distress HEAD: Normocephalic, without obvious abnormality, atraumatic FACE: Pupils: equal, round, reactive to light, no periorbital ecchymoses; Tympanic Membranes: clear to visualization; Midface: no tenderness, no swelling, no contusions, no lacerations and no abrasions over entire face Oropharynx: nonbloody, moist mucous membranes, no lacerations, no malocclusion and no chipped or missing teeth NECK: no tenderness to palpation, trachea midline, no masses, no swelling, no contusions and no abrasions LUNG: equal, clear breath sounds bilaterally. Tenderness to palpation over right chest. No crepitus. CARDIAC: Regular rate and rhythm or without murmur or extra heart sounds ABDOMEN/GI: soft, non-distended, no abrasions and no contusions, mildly TTP RLQ, has been present for months. PELVIS: stable to AP and/or lateral compression RECTAL: Sphincter tone exam deferred EXTREMITIES: normal and symmetric movement, normal range of motion, no joint swelling SPINE: no deformity, no stepoffs, no tenderness to palpation and no abrasions over cervical spine, thoracic spine. TTP over lumbar spine, no step offs/ SKIN: no lacerations, abrasions or contusions on complete skin exam NEURO: Mental Status: awake and alert, oriented to time, date, person, place Cranial Nerves: CN II - XII intact Motor: normal 5/5 strength in all tested muscle groups Sensory: no sensory deficits noted LABORATORY: Recent Results (from the past 24 hour(s)) Basic Metabolic Panel (non-fasting) Result Value Ref Range Glucose Lvl 108 65 - 199 mg/dL BUN 4 (L) 10 - 20 mg/dL Creatinine 0.69 (L) 0.80 - 1.50 mg/dL Sodium 144 135 - 145 mmol/L Potassium 3.7 3.5 - 5.0 mmol/L Chloride 101 98 - 107 mmol/L CO2 29 22 - 31 mmol/L Anion Gap 14 5 - 15 mmol/L Calcium 8.9 8.5 - 10.5 mg/dL Estimated GFR >60 >=60 Prothrombin Time Result Value Ref Range PT 13.2 12.0 - 15.0 sec INR 1.0 0.9 - 1.1 APTT Result Value Ref Range PTT 29 25 - 35 sec Ethanol Level Result Value Ref Range Ethanol Lvl 1313 mg/L Hemogram Result Value Ref Range WBC 10.1 (H) 4.0 - 10.0 x10(3)/mcL RBC 4.72 4.63 - 6.08 x10(6)/mcL Hemoglobin 16.4 13.7 - 17.5 gm/dL Hematocrit 45.9 40.0 - 51.0 % MCV 97.2 (H) 79.0 - 92.0 fL MCH 34.7 (H) 25.6 - 32.2 pg MCHC 35.7 32.0 - 36.5 gm/dL Platelets 223 145 - 370 x10(3)/mcL RDWSD 43.8 35.0 - 46.0 fL RDWCV 12.3 10.9 - 14.4 % MPV 10.1 9.0 - 12.0 fL Differential, Automated Result Value Ref Range Neutrophils % 62.7 % Neutr Abs (ANC) 6.31 (H) 1.50 - 6.30 x10(3)/mcL Lymphocytes % 27.7 % Lymphocytes Abs 2.8 1.0 - 3.6 x10(3)/mcL Monocytes % 7.8 % Monocyte Abs 0.8 0.2 - 1.0 x10(3)/mcL Eosinophils % 1.0 % Eosinophils Abs 0.1 0.0 - 0.5 x10(3)/mcL Basophils % 0.5 % Basophils Abs 0.0 0.0 - 0.2 x10(3)/mcL Immature Gran % 0.30 % Anette Gran Abs 0.03 0.00 - 0.05 x10(3)/mcL Gold Tube HOLD Result Value Ref Range Gold Hold Sample in lab. L-Lactate2 Whole Blood Result Value Ref Range Lactate WB 2.4 (H) mmol/L ABO/Rh Typing Result Value Ref Range ABORh Type A Pos Antibody screen Result Value Ref Range Ab Screen Interp Negative Expires at 2359 on: 11/09/2014 RADIOLOGY: FAST Scan - negative CXR - no acute process Pelvis- no fracture CT Head- Linear area of hyperdensity in the posterior lateral right frontal lobe.Differential for this appearance could include a large developmental venous anomaly versus a small parenchymal, unusually-shaped, hemorrhage. MR could distinguish between these two if clinically indicated. CT Spine- No cervical, thoracic, or lumbar spine fracture. CT Chest- R 6th rib fracture, small R pleural effusion (second read pending) Incidental Radiographic Findings: none Procedures Performed: Intubation: No Goldman Cath: No Central Line: No Chest Tube: No Sutures: No Other: Assessment/Summary of Injuries: 59 y.o. male s/p fall down stairs. Injuries identified on primary and secondary survey include: 1. Small IPH 2. concussion 3. Right 6th rib fracture with small effusion Plan: ?? Admit to Trauma Surgery Service in good condition, Dorian Singleton MD, attending ?? NPO ?? IV Fluids: banana bag @ 100/hr ?? Consulting Services and plans: 1. Neurosurgery: q4h neuro checks, no repeat CT head needed ?? Spine status: TLS clear, keep c-collar until not intoxicated and able to clear clinically. ?? Pain control: PRN dilaudid ?? DVT prophylaxis: SCDs, chemoprophylaxis contraintdicated ?? GI prophylaxis: famotidine ?? Tertiary survey in AM ?? Goldman ?? Ativan assessment scale and monitor closely for EtOH withdrawl ?? [facility]ONQUILL[place] [facility] 11/06/2014 TRAUMA ATTENDING ADDENDUM Pt seen and examined with the resident staff in the trauma bay in response to a TRAUMA ALERT activation. I agree with the above note and plan with the following additions/modifications. 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 Pt reports falling a half flight of stairs while drinking with positive LOC. He has had progressive MCNAIR and chest pain for which he presnted to the OSH and was diagnosed with a right small IPH along with rib fracture for which a transfer was requested. On arrival here he was flat and collared with a GCS of 15. Primary intact. Secondary notable for chest wall ttp. CXR negative. Pelvis negative. FAST negative. OSH imaging reviewed to include a head, CAP and CTLS spine CT scans. Initial list of injuries is as follows: 1. Small right IPH 2. ETOH intoxication 3. Right 6th rib fracture with small effusion A/P: 59 yo male with the above listed injuries both hemodynamically and neurologically intact at the present time to be admitted to the TRAUMA service in the NSCU with NSG consultation. Q2H neurochecks andfull spine until ETOH levels below intoxication level. Thiamine and folate to be administered. Ativan assessment scale ordered as high risk for ETOH withdrawal. Narcotics for pain control. Tertiary in the AM. documented in this encounter ED Notes May Dillard MD - 11/06/2014 8:50 PM EDT No chief complaint on file. HPI No Known Allergies Review of Systems Physical Exam Procedures MDM ED Course: Emergency Department Derrick Hobson is a 59 y.o. male who presents to [facility] with trauma. History of Present Illness / Review of Systems The patient is resting comfortably in the bed. Physical Exam: I reviewed the patient???s vitals as recorded in the electronic medical record and ED nursing notes.The patient was non-toxic appearing and in no obvious distress. Assessment/Plan: This 59 y.o. male was transferred from an outside hospital emergency department to receive specialtycare provided by the traumaservice for fall with head injury. I discussed the case with resident/fellow of the accepting service. The patient was deemed to be stable and not requiring significant involvement from the attending emergency physician at this time. The accepting service has assumed furthercare of the patient. Please see their notes for any further clinical details. May Dillard MD 11/07/14 0951 documented in this encounter Miscellaneous Notes Plan of Care - Carolyn Howard RN - 11/19/2014 3:49 AM EDT Problem: General Plan of Care Goal: Plan of Care Review Outcome: Ongoing (Interventions Implemented as Appropriate) 11/18/14 0300 11/18/142023 Plan of Care Review Plan of Care Outcome Status ongoing (interventions implemented as appropriate) -- Progress improving -- Coping/Psychosocial Response Interventions Plan of Care Reviewed with -- patient OUTCOME EVALUATION NOTE: OUTCOME SUMMARY: Patient had uneventful night, only sleeping a few hours which is pt baseline. Pt ringing appropriately. Pt tolerated collar care around 10pm. Pt given 15mg oxycodone to control pain. Pt refused inhalerand nebulizer over night, but agreed he would do the 0500 nebulizer treatment. PLAN MOVING FORWARD: Continue to monitor for pain, continue to monitor safety INDIVIDUALIZED FALL PREVENTION: Assistance: standby assist/independent Supervision: intermittent Surveillance: Purposeful efrain luna Goal: Fall Prevention-Safe Patient Handling Outcome: Ongoing (Interventions Implemented as Appropriate) 11/18/142023 Musculoskeletal Interventions Activity/Level of Assistance up in villeda;up in room Positioning independent (with standby) Muscle Strengthening activity/mobility promoted Self-Care Promotion personal routines for BADL/IADL promoted;assistance provided to decrease frustration Safety Interventions Safety Precautions/Fall Reduction fall reduction program maintained;lighting adjusted for task/safety;low bed;nonskid shoes/slippers when out of bed;room near unit station Perez Fall Risk History of Falling 25 Secondary Diagnosis 15 Ambulatory Aids 0 Intravenous Therapy/Heparin/Saline Lock 0 Gait/Transferring 10 Mental Status 0 Score 50 Activity and Safety Assistive Device Cane OTHER Perez Fall Risk High Goal: Infection Control Outcome: Ongoing (Interventions Implemented as Appropriate) 11/18/142023 Coping/Psychosocial Response Interventions Counseling goal setting facilitated;personal strengths integrated;problem solving facilitated;understanding of situation facilitated;verbalization of feelings encouraged Safety Interventions Isolation Precautions standard precautions maintained Infection Prevention rest/sleep promoted;promote handwashing;nutrition promoted;environmental surveillance;hydration promoted;bronchial hygiene promoted Goal: Discharge Needs Assessment Outcome: Ongoing (Interventions Implemented as Appropriate) 11/15/14 1447 11/19/14254 Discharge Needs Assessment Concerns to be Addressed -- no discharge needs identified Readmission Within the Last 30 Days -- no previous admission in last 30 days Equipment Needed After Discharge -- cane, straight Current Discharge Risk -- lives alone Living Environment Transportation Available none;other (see comments) (can call if there is enough notice - 2-3 days ahead of time) -- Problem: Fall/Trauma/Injury Risk (Adult, Obstetrics) Goal: Absence of Trauma/Injury/Falls Patient will demonstrate the desired outcomes. Outcome: Ongoing (Interventions Implemented as Appropriate) 11/19/14254 Fall/Trauma/Injury Risk (Adult, Obstetrics) Absence of Trauma/Injury/Falls making progress toward outcome Problem: Acute Alcohol Withdrawal Syndrome, Risk For/Actual (Adult, Obstetrics) Goal: Signs and symptoms of listed potential problems will be absent or manageable (reference (AcuteAlcohol Withdrawal Syndrome, Risk For/Actual (Adult, Obstetrics)) CPG) Outcome: Ongoing (Interventions Implemented as Appropriate) 11/11/14 1546 11/19/14 0255 Acute Alcohol Withdrawal Syndrome, Risk For/Actual Problems Assessed (Alcohol Withdrawal Syndrome) all -- Problems Present (Alcohol Withdrawal Syndrome) -- none Plan of Care - Sherri Spear RN - 11/18/2014 2:45 PM EDT Problem: General Plan of Care Goal: Plan of Care Review Outcome: Ongoing (Interventions Implemented as Appropriate) 11/18/14 0300 11/18/14 0803 Plan of Care Review Plan of Care Outcome Status ongoing (interventions implemented as appropriate) -- Progress improving -- Coping/Psychosocial Response Interventions Plan of Care Reviewed with -- patient OUTCOME EVALUATION NOTE: OUTCOME SUMMARY: Pt had good day today. Complains of pain 7-10/10 in neck and ribs. Administered oxycodone 15mg q4h. Encourage use of call larson when ambulating in room. [place] J collar in place; collar care done. Runs slightly bradycardic. VSS. Complaints of worsening migraine @ 1515 when with OT. WATERSIDE WORKER notified. Will continue to monitor. PLAN MOVING FORWARD: -Pain Control -Mobilize INDIVIDUALIZED FALL PREVENTION: Assistance: -Standby assist. Supervision: -Encourage call larson when ambulating in room. Surveillance: -Purposeful Rounding -Pt refuses to wear Masimo. -Team Care -Bedside Nurse Knowledge Exchange CPG OUTCOME EVALUATION: Goal: Individualization and Mutuality 11/11/14 1546 11/12/14 0411 11/17/14 1810 Individualization Individualize the Plan of Care: -- safety, reorientation -- Patient Specific Preferences -- -- must be accompanied while ambulating in room Patient Specific Interventions Pain medications, PT/OT,showered with shower chair -- -- Mutuality/Individual Preferences What anxieties, fears or concerns do you have about your health or care? none expressed -- -- What questions do you have about your health or care? none -- -- What information would help us give you more personalized care? none -- -- Goal: Fall Prevention-Safe Patient Handling 11/18/14 0803 Musculoskeletal Interventions Activity/Level of Assistance up in villeda;up in room;ambulated;with stand by assist Positioning independent (with supervision) Muscle Strengthening activity/mobility promoted Self-Care Promotion independence encouraged while providing assistance Safety Interventions Safety Precautions/Fall Reduction low bed;nonskid shoes/slippers when out of bed;supervised activity Perez Fall Risk History of Falling 25 Secondary Diagnosis 15 Ambulatory Aids 0 Intravenous Therapy/Heparin/Saline Lock 0 Gait/Transferring 10 Mental Status 0 Score 50 Activity and Safety Assistive Device Cane OTHER Perez Fall Risk High Goal: Infection Control 11/18/14 0803 11/18/14 1431 Coping/Psychosocial Response Interventions Counseling -- reassurance provided Safety Interventions Isolation Precautions standard precautions maintained -- Infection Prevention -- hydration promoted;nutrition promoted;rest/sleep promoted Goal: Discharge Needs Assessment 11/07/14 1849 11/10/14 1339 11/11/14 1546 Discharge Needs Assessment Concerns to be Addressed -- -- -- Readmission Within the Last 30 Days -- -- no previous admission in last 30 days Equipment Needed After Discharge -- -- -- Current Discharge Risk -- -- -- Current Health Anticipated Changes Related to Illness -- inability of caregiver to take care of patient -- Self-Care Equipment Currently Used at Home none -- -- Living Environment Transportation Available -- -- -- 11/13/14 0454 11/15/14 1447 11/18/14 1431 Discharge Needs Assessment Concerns to be Addressed -- -- no discharge needs identified Readmission Within the Last 30 Days -- -- -- Equipment Needed After Discharge -- -- none Current Discharge Risk cognitively impaired;substance abuse -- -- Current Health Anticipated Changes Related to Illness -- -- -- Self-Care Equipment Currently Used at Home -- -- -- Living Environment Transportation Available -- none;other (see comments) (can call if there is enough notice - 2-3 days ahead of time) -- Problem: Acute Alcohol Withdrawal Syndrome, Risk For/Actual (Adult, Obstetrics) Goal: Signs and symptoms of listed potential problems will be absent or manageable (reference (AcuteAlcohol Withdrawal Syndrome, Risk For/Actual (Adult, Obstetrics)) CPG) 11/11/14 1546 11/17/141809 Acute Alcohol Withdrawal Syndrome, Risk For/Actual Problems Assessed (Alcohol Withdrawal Syndrome) all -- Problems Present (Alcohol Withdrawal Syndrome) -- none Plan of Care - Lea Grijalva RN - 11/18/2014 3:03 AM EDT Problem: General Plan of Care Goal: Plan of Care Review Outcome: Ongoing (Interventions Implemented as Appropriate) 11/17/14200411/18/14 0300 Plan of Care Review Plan of Care Outcome Status -- ongoing (interventions implemented as appropriate) Progress -- improving Coping/Psychosocial Response Interventions Plan of Care Reviewed with patient -- OUTCOME EVALUATION NOTE: OUTCOME SUMMARY: Patient appeared sleeping between care over the night. [place] collar on and aligned. Patient ambulates with standby assist, encouraged to call for assist when up in room. Voiding without issue. VSS. PLAN MOVING FORWARD: Pain control Mobilize INDIVIDUALIZED FALL PREVENTION: Assistance: Standby assist, cane Supervision: Minimal assist with ADLs Surveillance: Purposeful roundingEfrain CPG GOAL OUTCOME EVALUATION: Goal: Individualization and Mutuality Outcome: Ongoing (Interventions Implemented as Appropriate) 11/11/14 1546 11/12/14 0411 11/17/141809 Individualization Individualize the Plan of Care: -- safety, reorientation -- Patient Specific Preferences -- -- must be accompanied while ambulating in room Patient Specific Interventions Pain medications, PT/OT,showered with shower chair -- -- Mutuality/Individual Preferences What anxieties, fears or concerns do you have about your health or care? none expressed -- -- What questions do you have about your health or care? none -- -- What information would help us give you more personalized care? none -- -- Goal: Fall Prevention-Safe Patient Handling Outcome: Ongoing (Interventions Implemented as Appropriate) 11/17/14200411/18/14 0125 Musculoskeletal Interventions Activity/Level of Assistance -- up in [place];with stand by assist Positioning independent (with supervision) -- Muscle Strengthening activity/mobility promoted;mobility in bed promoted -- Self-Care Promotion independence encouraged while providing assistance -- Safety Interventions Safety Precautions/Fall Reduction assistive device;fall reduction program maintained;environmental modification;lighting adjusted for task/safety;low bed;nonskid shoes/slippers when out of bed -- Perez Fall Risk History of Falling 25 -- Secondary Diagnosis 15 -- Ambulatory Aids 0 -- Intravenous Therapy/Heparin/Saline Lock 0 -- Gait/Transferring 10 -- Mental Status 0 -- Score 50 -- Activity and Safety Assistive Device Cane -- OTHER Perez Fall Risk High -- Goal: Infection Control Outcome: Ongoing (Interventions Implemented as Appropriate) 11/17/142004 Coping/Psychosocial Response Interventions Counseling calming techniques promoted Safety Interventions Isolation Precautions standard precautions maintained Infection Prevention bronchial hygiene promoted;hydration promoted;environmental surveillance;nutrition promoted;rest/sleep promoted;promote handwashing Goal: Discharge Needs Assessment Outcome: Ongoing (Interventions Implemented as Appropriate) 11/07/14 1849 11/10/14 1339 11/11/14 1546 Discharge Needs Assessment Concerns to be Addressed -- -- no discharge needs identified Readmission Within the Last 30 Days -- -- no previous admission in last 30 days Equipment Needed After Discharge -- -- walker, rolling Current Discharge Risk -- -- -- Current Health Anticipated Changes Related to Illness -- inability of caregiver to take care of patient -- Self-Care Equipment Currently Used at Home none -- -- Living Environment Transportation Available -- -- -- 11/13/14 0454 11/15/14 1447 Discharge Needs Assessment Concerns to be Addressed -- -- Readmission Within the Last 30 Days -- -- Equipment Needed After Discharge -- -- Current Discharge Risk cognitively impaired;substance abuse -- Current Health Anticipated Changes Related to Illness -- -- Self-Care Equipment Currently Used at Home -- -- Living Environment Transportation Available -- none;other (see comments) (can call if there is enough notice - 2-3 days ahead of time) Problem: Fall/Trauma/Injury Risk (Adult, Obstetrics) Goal: Absence of Trauma/Injury/Falls Patient will demonstrate the desired outcomes. Outcome: Ongoing (Interventions Implemented as Appropriate) 11/18/14 0300 Fall/Trauma/Injury Risk (Adult, Obstetrics) Absence of Trauma/Injury/Falls making progress toward outcome Problem: Acute Alcohol Withdrawal Syndrome, Risk For/Actual (Adult, Obstetrics) Goal: Signs and symptoms of listed potential problems will be absent or manageable (reference (AcuteAlcohol Withdrawal Syndrome, Risk For/Actual (Adult, Obstetrics)) CPG) Outcome: Ongoing (Interventions Implemented as Appropriate) 11/11/14 1546 11/17/141809 Acute Alcohol Withdrawal Syndrome, Risk For/Actual Problems Assessed (Alcohol Withdrawal Syndrome) all -- Problems Present (Alcohol Withdrawal Syndrome) -- none Plan of Care - Sherri Spear RN - 11/17/2014 6:27 PM EDT Problem: General Plan of Care Goal: Plan of Care Review 11/17/14 0541 11/17/14 0826 Plan of Care Review Plan of Care Outcome Status ongoing (interventions implemented as appropriate) -- Progress improving -- Coping/Psychosocial Response Interventions Plan of Care Reviewed with -- patient OUTCOME EVALUATION NOTE: OUTCOME SUMMARY: Pt encouraged to call for assistance when ambulating per PT. Complains of pain 8-1010; receives 15 mg Oxycodone; see MAR. No IV access. Pt off unit in AM for vascular study. No DVT present. [place] inplace for neck tenderness. Left hand/wrist/finger splinted. Discussion of putting pt on bed alarm ifnot using calling appropriately. Runs bradycardic. BP meds held most of day for low BP/HR. Will continue to monitor. PLAN MOVING FORWARD: -Pain Control -Mobilize -Fall prevention. -Possible discharge tomorrow? INDIVIDUALIZED FALL PREVENTION: Assistance: -standby assist Supervision: -Eyes on pt while ambulating. Surveillance: -Purposeful Rounding -Masimo -Team Care -Bedside Nurse Knowledge Exchange CPG OUTCOME EVALUATION: Goal: Individualization and Mutuality 11/11/14 1546 11/12/14 0411 11/17/14 181 Individualization Individualize the Plan of Care: -- safety, reorientation -- Patient Specific Preferences -- -- must be accompanied while ambulating in room Patient Specific Interventions Pain medications, PT/OT,showered with shower chair -- -- Mutuality/Individual Preferences What anxieties, fears or concerns do you have about your health or care? none expressed -- -- What questions do you have about your health or care? none -- -- What information would help us give you more personalized care? none -- -- Goal: Fall Prevention-Safe Patient Handling 11/17/14 0826 Musculoskeletal Interventions Activity/Level of Assistance up in room;with cane;with stand by assist Positioning independent (with supervison) Muscle Strengthening activity/mobility promoted Self-Care Promotion independence encouraged while providing assistance Safety Interventions Safety Precautions/Fall Reduction commode/urinal/bedpan at bedside;fall reduction program maintained;low bed;nonskid shoes/slippers when out of bed Perez Fall Risk History of Falling 25 Secondary Diagnosis 15 Ambulatory Aids 0 Intravenous Therapy/Heparin/Saline Lock 0 Gait/Transferring 10 Mental Status 0 Score 50 Activity and Safety Assistive Device Cane;Standard walker OTHER Perez Fall Risk High Goal: Infection Control 11/17/14 0826 11/17/14 181 Coping/Psychosocial Response Interventions Counseling reassurance provided -- Safety Interventions Isolation Precautions standard precautions maintained -- Infection Prevention -- environmental surveillance;nutrition promoted;rest/sleep promoted Goal: Discharge Needs Assessment 11/07/14 1849 11/10/14 1339 11/11/14 1546 Discharge Needs Assessment Concerns to be Addressed -- -- no discharge needs identified Readmission Within the Last 30 Days -- -- no previous admission in last 30 days Equipment Needed After Discharge -- -- walker, rolling Current Discharge Risk -- -- -- Current Health Anticipated Changes Related to Illness -- inability of caregiver to take care of patient -- Self-Care Equipment Currently Used at Home none -- -- Living Environment Transportation Available -- -- -- 11/13/14 0454 11/15/14 1447 Discharge Needs Assessment Concerns to be Addressed -- -- Readmission Within the Last 30 Days -- -- Equipment Needed After Discharge -- -- Current Discharge Risk cognitively impaired;substance abuse -- Current Health Anticipated Changes Related to Illness -- -- Self-Care Equipment Currently Used at Home -- -- Living Environment Transportation Available -- none;other (see comments) (can call if there is enough notice - 2-3 days ahead of time) Problem: Fall/Trauma/Injury Risk (Adult, Obstetrics) Goal: Absence of Trauma/Injury/Falls Patient will demonstrate the desired outcomes. 11/17/14 181 Fall/Trauma/Injury Risk (Adult, Obstetrics) Absence of Trauma/Injury/Falls making progress toward outcome Problem: Acute Alcohol Withdrawal Syndrome, Risk For/Actual (Adult, Obstetrics) Goal: Signs and symptoms of listed potential problems will be absent or manageable (reference (AcuteAlcohol Withdrawal Syndrome, Risk For/Actual (Adult, Obstetrics)) [facility]) 11/11/14 1546 11/17/14 1810 Acute Alcohol Withdrawal Syndrome, Risk For/Actual Problems Assessed (Alcohol Withdrawal Syndrome) all -- Problems Present (Alcohol Withdrawal Syndrome) -- none Consult Note - Rabia Mcdonald MD - 11/17/2014 10:42 AM EDT Orthopaedic Surgery Consult Note Attending: Mami Hobson is a 59 y.o. male who presents to see us in consultation today at the request of Dorian Pena MD for L small finger fracture. History of Present Illness: Derrick Hobson is a 59 y.o. male with hx of ETOH abuse who presented to the trauma service at this facility on 11/06 after a fall down the stairs. Upon admission he was found to have several injuries including 6th r rib fx and possible IPH. He has remained inpatient statussince that time. Patient reports he had some pain in his wrist and small finger of the L hand since the time of his fall, however xrays not initially obtained. He denies further injury to his hand since the time of his initial injury. Xrays obtained on 11/16 showed evidence of distal radius and ulna fxas well as small finger distal phalanx fx. Patient reports he suffered a fx to the L distal radius in Nov 2013, which was treated non-op at [facility] in a splint. Patient reports he also suffered injury to the distal aspect of his L small finger at that time, and has had some degree of flexion deformit of the distal phalanx of the small finger since the time of that injury. He now reports mild pain to palpation on the ulnar aspect of his wrist and minimal pain to palpation over the small fingerdistal phalanx. He denies pain over radial aspect of wrist. He denies numbness or tingling. He has been using the hadn since the accident with little difficutly. 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 Past Medical History: Patient Active Problem List Diagnosis Code ??? Abnormal brain CT 793.0 Past Surgical History: No past surgical history on file. No Known Allergies No current facility-administered medications on file prior to encounter. No current outpatient prescriptions on file prior to encounter. Family History: Negative for bleeding/clotting disorders or anesthetic complications. No family history on file. Social History: History Social History ??? Marital Status: Single Spouse Name: N/A Number of Children: N/A ??? Years of Education: N/A Social History Main Topics ??? Smoking status: Current Every Day Smoker -- 0.50 packs/day Types: Cigarettes ??? Smokeless tobacco: Never Used Comment: started smoking at 14, increased smoking at 18 ??? Alcohol Use: 6.0 oz/week 10 Not specified per week Comment: some weeks none, some weeks up to 10 ??? Drug Use: No Comment: unknown ??? Sexual Activity: Not Currently Other Topics Concern ??? None Social History Narrative Review of Systems: As per HPI, otherwise negative Objective: Temp: [36.8 ??C (98.2 ??F)-37.5 ??C (99.5 ??F)] Heart Rate: [54-61] Resp: [16-18] BP: (110-134)/(64-81) SpO2: [95 %-98 %] Gen- NAD, awake, alert, appr HEENT- NCAT CV- RR Pulm- No incr WOB Left Upper Extremity Exam- Mild pain to palpation L wrist (ulnar side), no pain to palpation over radius Mild pain to palpation L small finger distal phalanx Mild flexion of distal phalanx of small finger Normal appear in finger cascade Painless range of motion of shoulder / elbow / wrist / fingers, FDS and FDP intact No effusion in shoulder / elbow / wrist No ecchymosis, erythema, or overlying skin changes. Sensation intact to light touch in Ax/M/R/U distributions Motor intact (5/5) shoulder abduction, elbow flexion/extension, wrist flexion/extension, x ray equipment mechanic, EPL, AIN Brisk capillary refill 2+ radial pulse Imaging: Xrays L hand/wrist - Chronic appearing fracture of L small finger distal phalanx with intra-articular involvement, thought to represent non-union of old avulsion injury. Transverse sclerosis of distal radius and ulnar styloid with dorsal angulation of distal radius consistent with known prior fx. Assessment/Plan: 59 y.o. male with several injuries secondary to fall down stairs on 11/06, now withL wrist and small finger distal phalanx fracture. L distal radius and ulna fx appear chronic in setting of known hx of distal radius fx. L small finger distal phalanx fracture appears most likely to have occurred at time of injury on 11/06. NV intact without significant rotational defect. Placed in splint. Although wrist fracture appears to be old and pt has not gross deficit in strengtht or ROM on exam, pt reporting some pain on ulnar aspect of wrist that is possibly related to tendon (insetting ofdorsal angulation defect of prior fracture). Placed in volar resting splint. Maintain NWB RUE in splint. Will plan to have patient f/u in 1 month with xrays in ortho upper extremity clinic. Surgical txoptions to correct L small finger and L wrist deformities were discussed with patient and patient was advised that if he would like to proceed with surgery to correct these deformities he may contact the clinic or the orthopaedic service at any time, or discuss this at his follow-up appointment. - Activity- NWB RUE - Follow-up- 2 weeks with x-rays in cast/splint prior to appt - Discuss with Dr. Mami De Leon MD Orthopaedic Surgery Pager: #[phone] I examined Derrick Hobson. He has a malunited left wrist fracture with new onset of pain caused byhis recent fall. He reports that he injured the left small finger DIP joint last year and doesn't believe that this is necessarily an acute injury. He has been placed into a mallet splint and we will do followup xrays in about 4 weeks. We also discussed the option of distal radius osteotomy to addresshis malunion in the future. RABIA MCDONALD MD Plan of Care - Lea Grijalva RN - 11/17/2014 5:48 AM EDT Problem: General Plan of Care Goal: Plan of Care Review Outcome: Ongoing (Interventions Implemented as Appropriate) 11/16/14201111/17/14 0541 Plan of Care Review Plan of Care Outcome Status -- ongoing (interventions implemented as appropriate) Progress -- improving Coping/Psychosocial Response Interventions Plan of Care Reviewed with patient -- OUTCOME EVALUATION NOTE: OUTCOME SUMMARY: Patient appeared sleeping between care over the night. Patient up ad [place] in room. Voiding independently in bathroom. Last BM yesterday 11/16/14. Patient rates pain 7-9/10 in the neck. Patient not scoring on the Ativan assessment scale. PLAN MOVING FORWARD: Pain control Mobilize Patient needs L wrist/finger splinted for fx discovered yesterday on films INDIVIDUALIZED FALL PREVENTION: Assistance: Independent in room, standby assist if ambulating in hallway Supervision: Independent with ADLs Surveillance: Purposeful rounding, Masimo, q 4 hr neuro checks CPG GOAL OUTCOME EVALUATION: Goal: Individualization and Mutuality Outcome: Ongoing (Interventions Implemented as Appropriate) 11/11/14 1546 11/12/14 0411 Individualization Individualize the Plan of Care: -- safety, reorientation Patient Specific Preferences Pain control, would like to shower -- Patient Specific Interventions Pain medications, PT/OT,showered with shower chair -- Mutuality/Individual Preferences What anxieties, fears or concerns do you have about your health or care? none expressed -- What questions do you have about your health or care? none -- What information would help us give you more personalized care? none -- Goal: Fall Prevention-Safe Patient Handling Outcome: Ongoing (Interventions Implemented as Appropriate) 11/16/14 1400 11/16/142011 Musculoskeletal Interventions Activity/Level of Assistance -- up in room;up ad [place] Positioning -- independent Muscle Strengthening -- activity/mobility promoted;mobility in bed promoted;up in chair encouraged for meals and activities Self-Care Promotion -- independence encouraged while providing assistance Safety Interventions Safety Precautions/Fall Reduction -- commode/urinal/bedpan at bedside;fall reduction program maintained;lighting adjusted for task/safety;low bed;nonskid shoes/slippers when out of bed Perez Fall Risk History of Falling -- 25 Secondary Diagnosis -- 15 Ambulatory Aids -- 0 Intravenous Therapy/Heparin/Saline Lock -- 0 Gait/Transferring -- 10 Mental Status -- 0 Score -- 50 Activity and Safety Assistive Device Cane -- OTHER Perez Fall Risk -- High Goal: Infection Control Outcome: Ongoing (Interventions Implemented as Appropriate) 11/16/142011 Coping/Psychosocial Response Interventions Counseling calming techniques promoted Safety Interventions Isolation Precautions standard precautions maintained Infection Prevention rest/sleep promoted;promote handwashing;nutrition promoted;hydration promoted;environmental surveillance;bronchial hygiene promoted Goal: Discharge Needs Assessment Outcome: Ongoing (Interventions Implemented as Appropriate) 11/07/14 1849 11/10/14 1339 11/11/14 1546 Discharge Needs Assessment Concerns to be Addressed -- -- no discharge needs identified Readmission Within the Last 30 Days -- -- no previous admission in last 30 days Equipment Needed After Discharge -- -- walker, rolling Current Discharge Risk -- -- -- Current Health Anticipated Changes Related to Illness -- inability of caregiver to take care of patient -- Self-Care Equipment Currently Used at Home none -- -- Living Environment Transportation Available -- -- -- 11/13/14 0454 11/15/14 1447 Discharge Needs Assessment Concerns to be Addressed -- -- Readmission Within the Last 30 Days -- -- Equipment Needed After Discharge -- -- Current Discharge Risk cognitively impaired;substance abuse -- Current Health Anticipated Changes Related to Illness -- -- Self-Care Equipment Currently Used at Home -- -- Living Environment Transportation Available -- none;other (see comments) (can call if there is enough notice - 2-3 days ahead of time) Problem: Fall/Trauma/Injury Risk (Adult, Obstetrics) Goal: Absence of Trauma/Injury/Falls Patient will demonstrate the desired outcomes. Outcome: Ongoing (Interventions Implemented as Appropriate) 11/17/14 0541 Fall/Trauma/Injury Risk (Adult, Obstetrics) Absence of Trauma/Injury/Falls making progress toward outcome Problem: Acute Alcohol Withdrawal Syndrome, Risk For/Actual (Adult, Obstetrics) Goal: Signs and symptoms of listed potential problems will be absent or manageable (reference (AcuteAlcohol Withdrawal Syndrome, Risk For/Actual (Adult, Obstetrics)) [facility]) Outcome: Ongoing (Interventions Implemented as Appropriate) 11/11/14 1546 11/12/14 0411 Acute Alcohol Withdrawal Syndrome, Risk For/Actual Problems Assessed (Alcohol Withdrawal Syndrome) all -- Problems Present (Alcohol Withdrawal Syndrome) -- situational response Plan of Care - Ilda Brandt RN - 11/16/2014 6:18 PM EDT Problem: General Plan of Care Goal: Plan of Care Review Outcome: Ongoing (Interventions Implemented as Appropriate) 11/16/14 1805 Plan of Care Review Plan of Care Outcome Status ongoing (interventions implemented as appropriate) Progress improving Coping/Psychosocial Response Interventions Plan of Care Reviewed with patient OUTCOME EVALUATION NOTE: OUTCOME SUMMARY: Pt ambulated several times around unit and frequently within room, took shower and shaved, had good PO fluid/nutrition intake. Voiding independently in bathroom. Pain controlled with PRN oxycodone, 15 mg Q4 PRN, pt still reporting high levels of pain but states that I had a lot of pain before my accident. Pt requesting pain medication be given on every 4 hours schedule. Pt had x-rays of L wrist and L 5th finger, x-rays revealed L wrist and L 5th finger fractures. Pt will have ortho splint injured areas today. Pt also c/o red irritated skin under [place]-j collar. Collar care completed, skin cleansed and shaved and miconazole powder applied to area to prevent/tx yeast. PLAN MOVING FORWARD: Mobility, pain control, safety INDIVIDUALIZED FALL PREVENTION: Assistance: Independent w/ cane within room, ambulation w/ s/b assist Supervision: Intermittent Surveillance: Masimo, hourly rounding CPG GOAL OUTCOME EVALUATION: Goal: Individualization and Mutuality Outcome: Ongoing (Interventions Implemented as Appropriate) Goal: Fall Prevention-Safe Patient Handling Outcome: Ongoing (Interventions Implemented as Appropriate) 11/15/14203111/16/14 1211 11/16/14 1400 Musculoskeletal Interventions Activity/Level of Assistance -- -- up ad [place] Positioning independent -- -- Muscle Strengthening -- activity/mobility promoted;personal routines for BADL/IADL promoted -- Self-Care Promotion -- personal routines for BADL/IADL promoted;personal/BADL objects within reach;independence encouraged while providing assistance;assistance provided to decrease frustration -- Safety Interventions Safety Precautions/Fall Reduction -- assistive device;fall reduction program maintained;lighting adjusted for task/safety;room near unit station;supervised activity;nonskid shoes/slippers when out of bed -- Perez Fall Risk History of Falling -- 25 -- Secondary Diagnosis -- 15 -- Ambulatory Aids -- 0 -- Intravenous Therapy/Heparin/Saline Lock -- 20 -- Gait/Transferring -- 10 -- Mental Status -- 0 -- Score -- 70 -- Activity and Safety Assistive Device -- -- Cane OTHER Perez Fall Risk -- High -- Goal: Infection Control Outcome: Ongoing (Interventions Implemented as Appropriate) 11/16/14 1211 Coping/Psychosocial Response Interventions Counseling personal strengths integrated;understanding of situation facilitated;relaxation techniques promoted;reassurance provided Safety Interventions Isolation Precautions standard precautions maintained Infection Prevention rest/sleep promoted;hydration promoted;nutrition promoted;bronchial hygiene promoted Goal: Discharge Needs Assessment Outcome: Ongoing (Interventions Implemented as Appropriate) Plan of Care - Adilene Ashford RN - 11/16/2014 3:39 AM EDT Problem: General Plan of Care Goal: Plan of Care Review Outcome: Ongoing (Interventions Implemented as Appropriate) 11/10/14 1339 11/11/14 1546 11/15/14 1029 Plan of Care Review Plan of Care Outcome Status ongoing (interventions implemented as appropriate) -- -- Progress -- improving -- Coping/Psychosocial Response Interventions Plan of Care Reviewed with -- -- patient OUTCOME EVALUATION NOTE: OUTCOME SUMMARY: Pt OOB to chair, in good spirits, reports adequate pain control with Oxycodone 15 mg po q4h. Had shower today, feels good. [place] collar on and intact, pt leaving it on. Pt continues to cough, encouraged splinting with pillow, given hard candy to ease dry throat. PLAN MOVING FORWARD: Pain control, mobilize, dc planning INDIVIDUALIZED FALL PREVENTION: Assistance: OOB with cane Supervision: Minimal assist with ADLs Surveillance: Joe, hourly rounding. CPG GOAL OUTCOME EVALUATION: Goal: Individualization and Mutuality Outcome: Ongoing (Interventions Implemented as Appropriate) 11/11/14 1546 11/12/14 0411 Individualization Individualize the Plan of Care: -- safety, reorientation Patient Specific Preferences Pain control, would like to shower -- Patient Specific Interventions Pain medications, PT/OT,showered with shower chair -- Mutuality/Individual Preferences What anxieties, fears or concerns do you have about your health or care? none expressed -- What questions do you have about your health or care? none -- What information would help us give you more personalized care? none -- Goal: Fall Prevention-Safe Patient Handling Outcome: Ongoing (Interventions Implemented as Appropriate) 11/15/14 1029 11/15/142031 Musculoskeletal Interventions Activity/Level of Assistance -- up [place];with cane;independently Positioning -- independent Muscle Strengthening activity/mobility promoted;personal routines for BADL/IADL promoted -- Self-Care Promotion bathing assistance provided;independence encouraged while providing assistance;personal routines for BADL/IADL promoted;personal/BADL objects within reach -- Safety Interventions Safety Precautions/Fall Reduction -- assistive device;commode/urinal/bedpan at bedside;environmentalmodification;fall reduction program maintained;nonskid shoes/slippers when out of bed;room near unitstation Perez Fall Risk History of Falling -- 25 Secondary Diagnosis -- 15 Ambulatory Aids -- 0 Intravenous Therapy/Heparin/Saline Lock -- 20 Gait/Transferring -- 10 Mental Status -- 0 Score -- 70 Activity and Safety Assistive Device -- Cane OTHER Perez Fall Risk -- High Goal: Infection Control Outcome: Ongoing (Interventions Implemented as Appropriate) 11/15/14 102 Coping/Psychosocial Response Interventions Counseling personal strengths integrated Safety Interventions Isolation Precautions standard precautions maintained Infection Prevention environmental surveillance;hydration promoted;nutrition promoted;rest/sleep promoted Goal: Discharge Needs Assessment Outcome: Ongoing (Interventions Implemented as Appropriate) 11/07/14 1849 11/10/14 1339 11/11/14 1546 Discharge Needs Assessment Concerns to be Addressed -- -- no discharge needs identified Readmission Within the Last 30 Days -- -- no previous admission in last 30 days Equipment Needed After Discharge -- -- walker, rolling Current Discharge Risk -- -- -- Current Health Anticipated Changes Related to Illness -- inability of caregiver to take care of patient -- Self-Care Equipment Currently Used at Home none -- -- Living Environment Transportation Available -- -- -- 11/13/14 0454 11/15/14 1447 Discharge Needs Assessment Concerns to be Addressed -- -- Readmission Within the Last 30 Days -- -- Equipment Needed After Discharge -- -- Current Discharge Risk cognitively impaired;substance abuse -- Current Health Anticipated Changes Related to Illness -- -- Self-Care Equipment Currently Used at Home -- -- Living Environment Transportation Available -- none;other (see comments) (can call if there is enough notice - 2-3 days ahead of time) Problem: Fall/Trauma/Injury Risk (Adult, Obstetrics) Goal: Absence of Trauma/Injury/Falls Patient will demonstrate the desired outcomes. Outcome: Ongoing (Interventions Implemented as Appropriate) 11/14/14 1442 Fall/Trauma/Injury Risk (Adult, Obstetrics) Absence of Trauma/Injury/Falls making progress toward outcome Problem: Acute Alcohol Withdrawal Syndrome, Risk For/Actual (Adult, Obstetrics) Goal: Signs and symptoms of listed potential problems will be absent or manageable (reference (AcuteAlcohol Withdrawal Syndrome, Risk For/Actual (Adult, Obstetrics)) CPG) Outcome: Ongoing (Interventions Implemented as Appropriate) 11/11/14 1546 11/12/14 0411 Acute Alcohol Withdrawal Syndrome, Risk For/Actual Problems Assessed (Alcohol Withdrawal Syndrome) all -- Problems Present (Alcohol Withdrawal Syndrome) -- situational response Plan of Care - Ilda Brandt RN - 11/15/2014 6:41 PM EDT Problem: General Plan of Care Goal: Plan of Care Review Outcome: Ongoing (Interventions Implemented as Appropriate) 11/10/14 1339 11/11/14 1546 11/15/14 1029 Plan of Care Review Plan of Care Outcome Status ongoing (interventions implemented as appropriate) -- -- Progress -- improving -- Coping/Psychosocial Response Interventions Plan of Care Reviewed with -- -- patient OUTCOME EVALUATION NOTE: OUTCOME SUMMARY: Pt's pain managed adequately with PRN oxycodone but pt still reporting 8/10 pain at times throughoutshift despite taking med Q4 as available. Pt was up in chair for meals and activities, went for several walks on unit w/ cane + s/b assist. Pt took shower earlier. Remains on RA, lung sounds coarse, has been receiving scheduled neb tx's to good effect. Pt w/ red rash under [place]-J collar, also c/o pain in L wrist and L pinky finger - L pinky joint appears displaced. advised and plans to see pt forthese concerns. PLAN MOVING FORWARD: Monitor pain, encourage ambulation as tolerated, fall prevention INDIVIDUALIZED FALL PREVENTION: Assistance: S/b assist w/ cane Supervision: Intermittent, s/b w/ ambulation/transfers/showering Surveillance: Masimo, hourly rounding CPG GOAL OUTCOME EVALUATION: Goal: Individualization and Mutuality Outcome: Ongoing (Interventions Implemented as Appropriate) Goal: Fall Prevention-Safe Patient Handling Outcome: Ongoing (Interventions Implemented as Appropriate) 11/14/14194411/15/14 1029 Musculoskeletal Interventions Activity/Level of Assistance -- up in [place];ambulated;with stand by assist Positioning -- independent Muscle Strengthening -- activity/mobility promoted;personal routines for BADL/IADL promoted Self-Care Promotion -- bathing assistance provided;independence encouraged while providing assistance;personal routines for BADL/IADL promoted;personal/BADL objects within reach Safety Interventions Safety Precautions/Fall Reduction -- assistive device;low bed;lighting adjusted for task/safety;fallreduction program maintained;supervised activity;room near unit station;nonskid shoes/slippers when out of bed Perez Fall Risk History of Falling -- 25 Secondary Diagnosis -- 15 Ambulatory Aids -- 0 Intravenous Therapy/Heparin/Saline Lock -- 20 Gait/Transferring -- 10 Mental Status -- 15 Score -- 85 Activity and Safety Assistive Device -- Cane OTHER Perez Fall Risk High -- Goal: Infection Control Outcome: Ongoing (Interventions Implemented as Appropriate) 11/15/14 1029 Coping/Psychosocial Response Interventions Counseling personal strengths integrated Safety Interventions Isolation Precautions standard precautions maintained Infection Prevention environmental surveillance;hydration promoted;nutrition promoted;rest/sleep promoted Goal: Discharge Needs Assessment Outcome: Ongoing (Interventions Implemented as Appropriate) 11/07/14 1849 11/10/14 1339 11/11/14 1546 Discharge Needs Assessment Concerns to be Addressed -- -- no discharge needs identified Readmission Within the Last 30 Days -- -- no previous admission in last 30 days Equipment Needed After Discharge -- -- walker, rolling Current Discharge Risk -- -- -- Current Health Anticipated Changes Related to Illness -- inability of caregiver to take care of patient -- Self-Care Equipment Currently Used at Home none -- -- Living Environment Transportation Available -- -- -- 11/13/14 3797 11/15/14 1447 Discharge Needs Assessment Concerns to be Addressed -- -- Readmission Within the Last 30 Days -- -- Equipment Needed After Discharge -- -- Current Discharge Risk cognitively impaired;substance abuse -- Current Health Anticipated Changes Related to Illness -- -- Self-Care Equipment Currently Used at Home -- -- Living Environment Transportation Available -- none;other (see comments) (can call if there is enough notice - 2-3 days ahead of time) Plan of Care - Adilene Ashford RN - 11/15/2014 1:47 AM EDT Problem: General Plan of Care Goal: Plan of Care Review Outcome: Ongoing (Interventions Implemented as Appropriate) 11/10/14 1339 11/11/14 1546 11/14/14 0800 Plan of Care Review Plan of Care Outcome Status ongoing (interventions implemented as appropriate) -- -- Progress -- improving -- Coping/Psychosocial Response Interventions Plan of Care Reviewed with -- -- patient OUTCOME EVALUATION NOTE: OUTCOME SUMMARY: Pt tired tonight, requesting meds early and wanting to sleep uninterrupted tonight. Pt continues to experience rib pain when coughing, encouraged to splint with pillows. Pt voiding large amounts in BR,[place] J collar intact. PLAN MOVING FORWARD: Pain control, mobilize, dc planning INDIVIDUALIZED FALL PREVENTION: Assistance: OOB with standby assist Supervision: One assist with ADLs Surveillance: Hourly rounding, bed alarm CPG GOAL OUTCOME EVALUATION: Goal: Individualization and Mutuality Outcome: Ongoing (Interventions Implemented as Appropriate) 11/11/14 1546 11/12/14 0411 Individualization Individualize the Plan of Care: -- safety, reorientation Patient Specific Preferences Pain control, would like to shower -- Patient Specific Interventions Pain medications, PT/OT,showered with shower chair -- Mutuality/Individual Preferences What anxieties, fears or concerns do you have about your health or care? none expressed -- What questions do you have about your health or care? none -- What information would help us give you more personalized care? none -- Goal: Fall Prevention-Safe Patient Handling Outcome: Ongoing (Interventions Implemented as Appropriate) 11/12/14 2036 11/14/14 1945 Musculoskeletal Interventions Activity/Level of Assistance -- up in room;with stand by assist Positioning -- independent Muscle Strengthening personal routines for BADL/IADL promoted -- Self-Care Promotion independence encouraged while providing assistance;personal routines for BADL/IADL promoted -- Safety Interventions Safety Precautions/Fall Reduction -- bed alarm;commode/urinal/bedpan at bedside;environmental modification;fall reduction program maintained;nonskid shoes/slippers when out of bed;room near unit station Perez Fall Risk History of Falling -- 25 Secondary Diagnosis -- 15 Ambulatory Aids -- 0 Intravenous Therapy/Heparin/Saline Lock -- 20 Gait/Transferring -- 10 Mental Status -- 15 Score -- 85 Activity and Safety Assistive Device Oxygen -- OTHER Perez Fall Risk -- High Goal: Infection Control Outcome: Ongoing (Interventions Implemented as Appropriate) 11/12/14203511/14/14 0800 11/14/14 1442 Coping/Psychosocial Response Interventions Counseling personal strengths integrated;problem solving facilitated;understanding of situation facilitated;verbalization of feelings encouraged -- -- Safety Interventions Isolation Precautions -- -- standard precautions maintained Infection Prevention -- environmental surveillance;hydration promoted;nutrition promoted -- Goal: Discharge Needs Assessment Outcome: Ongoing (Interventions Implemented as Appropriate) 11/07/14 1849 11/10/14 1339 11/11/14 1546 Discharge Needs Assessment Concerns to be Addressed -- -- no discharge needs identified Readmission Within the Last 30 Days -- -- no previous admission in last 30 days Equipment Needed After Discharge -- -- walker, rolling Current Discharge Risk -- -- -- Current Health Anticipated Changes Related to Illness -- inability of caregiver to take care of patient -- Self-Care Equipment Currently Used at Home none -- -- Living Environment Transportation Available ambulance;family or friend will provide -- -- 11/13/14 0454 Discharge Needs Assessment Concerns to be Addressed -- Readmission Within the Last 30 Days -- Equipment Needed After Discharge -- Current Discharge Risk cognitively impaired;substance abuse Current Health Anticipated Changes Related to Illness -- Self-Care Equipment Currently Used at Home -- Living Environment Transportation Available -- Problem: Fall/Trauma/Injury Risk (Adult, Obstetrics) Goal: Absence of Trauma/Injury/Falls Patient will demonstrate the desired outcomes. Outcome: Ongoing (Interventions Implemented as Appropriate) 11/14/14 1442 Fall/Trauma/Injury Risk (Adult, Obstetrics) Absence of Trauma/Injury/Falls making progress toward outcome Problem: Acute Alcohol Withdrawal Syndrome, Risk For/Actual (Adult, Obstetrics) Goal: Signs and symptoms of listed potential problems will be absent or manageable (reference (AcuteAlcohol Withdrawal Syndrome, Risk For/Actual (Adult, Obstetrics)) CPG) Outcome: Ongoing (Interventions Implemented as Appropriate) 11/11/14 1546 11/12/14 0411 Acute Alcohol Withdrawal Syndrome, Risk For/Actual Problems Assessed (Alcohol Withdrawal Syndrome) all -- Problems Present (Alcohol Withdrawal Syndrome) -- situational response Plan of Care - Delmy Ko RN - 11/14/2014 2:45 PM EDT Problem: General Plan of Care Goal: Individualization and Mutuality Pt remains orientated and aware of the dangers of walking with assistance. Bed and chair alarm in place as a reminder. Goal: Fall Prevention-Safe Patient Handling 11/14/14 144 Safety Interventions Safety Precautions/Fall Reduction fall reduction program maintained;environmental modification Goal: Infection Control 11/14/14 144 Safety Interventions Isolation Precautions standard precautions maintained Problem: Fall/Trauma/Injury Risk (Adult, Obstetrics) Goal: Absence of Trauma/Injury/Falls Patient will demonstrate the desired outcomes. 11/14/14 1442 Fall/Trauma/Injury Risk (Adult, Obstetrics) Absence of Trauma/Injury/Falls making progress toward outcome Problem: Acute Alcohol Withdrawal Syndrome, Risk For/Actual (Adult, Obstetrics) Goal: Signs and symptoms of listed potential problems will be absent or manageable (reference (AcuteAlcohol Withdrawal Syndrome, Risk For/Actual (Adult, Obstetrics)) CPG) 11/11/14 1546 Acute Alcohol Withdrawal Syndrome, Risk For/Actual Problems Assessed (Alcohol Withdrawal Syndrome) all Plan of Care - Adilene Ashford RN - 11/14/2014 7:31 AM EDT Problem: General Plan of Care Goal: Plan of Care Review Outcome: Ongoing (Interventions Implemented as Appropriate) 11/10/14 1339 11/11/14 1546 11/13/14 0800 Plan of Care Review Plan of Care Outcome Status ongoing (interventions implemented as appropriate) -- -- Progress -- improving -- Coping/Psychosocial Response Interventions Plan of Care Reviewed with -- -- patient OUTCOME EVALUATION NOTE: OUTCOME SUMMARY: Pt resting on bed, reading, pleasant, conversational, bed alarm on. [place] J collar on but pt was observed twice overnight with it off while he was eating. Pt reports adequate pain control with Oxycodone 15 mg po q4h. Pt voiding large amounts in toilet. PLAN MOVING FORWARD: Pain control, maintain C-spine precautions, discharge planning INDIVIDUALIZED FALL PREVENTION: Assistance: OOB with standby assist Supervision: Minimal assist with ADLs Surveillance: Hourly rounding, bed alarm, pt refuses Joe. CPG GOAL OUTCOME EVALUATION: Goal: Individualization and Mutuality Outcome: Ongoing (Interventions Implemented as Appropriate) 11/11/14 15411/12/14 0411 Individualization Individualize the Plan of Care: -- safety, reorientation Patient Specific Preferences Pain control, would like to shower -- Patient Specific Interventions Pain medications, PT/OT,showered with shower chair -- Mutuality/Individual Preferences What anxieties, fears or concerns do you have about your health or care? none expressed -- What questions do you have about your health or care? none -- What information would help us give you more personalized care? none -- Goal: Fall Prevention-Safe Patient Handling Outcome: Ongoing (Interventions Implemented as Appropriate) 11/12/14203511/13/142104 Musculoskeletal Interventions Activity/Level of Assistance -- up in room;independently;with stand by assist Positioning -- independent Muscle Strengthening personal routines for BADL/IADL promoted -- Self-Care Promotion independence encouraged while providing assistance;personal routines for BADL/IADL promoted -- Safety Interventions Safety Precautions/Fall Reduction -- bed alarm;commode/urinal/bedpan at bedside;environmental modification;fall reduction program maintained;nonskid shoes/slippers when out of bed;room near unit station Perez Fall Risk History of Falling -- 25 Secondary Diagnosis -- 15 Ambulatory Aids -- 0 Intravenous Therapy/Heparin/Saline Lock -- 20 Gait/Transferring -- 10 Mental Status -- 15 Score -- 85 Activity and Safety Assistive Device Oxygen -- OTHER Perez Fall Risk -- High Goal: Infection Control Outcome: Ongoing (Interventions Implemented as Appropriate) 11/12/14203511/13/14 1551 Coping/Psychosocial Response Interventions Counseling personal strengths integrated;problem solving facilitated;understanding of situation facilitated;verbalization of feelings encouraged -- Safety Interventions Isolation Precautions -- standard precautions maintained Infection Prevention -- environmental surveillance;hydration promoted;nutrition promoted;promote handwashing Goal: Discharge Needs Assessment Outcome: Ongoing (Interventions Implemented as Appropriate) 11/07/14 1849 11/10/14 1339 11/11/14 1546 Discharge Needs Assessment Concerns to be Addressed -- -- no discharge needs identified Readmission Within the Last 30 Days -- -- no previous admission in last 30 days Equipment Needed After Discharge -- -- walker, rolling Current Discharge Risk -- -- -- Current Health Anticipated Changes Related to Illness -- inability of caregiver to take care of patient -- Self-Care Equipment Currently Used at Home none -- -- Living Environment Transportation Available ambulance;family or friend will provide -- -- 11/13/14 0454 Discharge Needs Assessment Concerns to be Addressed -- Readmission Within the Last 30 Days -- Equipment Needed After Discharge -- Current Discharge Risk cognitively impaired;substance abuse Current Health Anticipated Changes Related to Illness -- Self-Care Equipment Currently Used at Home -- Living Environment Transportation Available -- Problem: Fall/Trauma/Injury Risk (Adult, Obstetrics) Goal: Absence of Trauma/Injury/Falls Patient will demonstrate the desired outcomes. Outcome: Ongoing (Interventions Implemented as Appropriate) 11/13/14 1551 Fall/Trauma/Injury Risk (Adult, Obstetrics) Absence of Trauma/Injury/Falls making progress toward outcome Problem: Acute Alcohol Withdrawal Syndrome, Risk For/Actual (Adult, Obstetrics) Goal: Signs and symptoms of listed potential problems will be absent or manageable (reference (AcuteAlcohol Withdrawal Syndrome, Risk For/Actual (Adult, Obstetrics)) CPG) Outcome: Ongoing (Interventions Implemented as Appropriate) 11/11/14 1546 11/12/14 0411 Acute Alcohol Withdrawal Syndrome, Risk For/Actual Problems Assessed (Alcohol Withdrawal Syndrome) all -- Problems Present (Alcohol Withdrawal Syndrome) -- situational response Plan of Care - Delmy Ko, RN - 11/13/2014 3:53 PM EDT Problem: General Plan of Care Goal: Individualization and Mutuality 11/12/14410 Individualization Individualize the Plan of Care: safety, reorientation Goal: Fall Prevention-Safe Patient Handling 11/13/14 155 Safety Interventions Safety Precautions/Fall Reduction environmental modification;fall reduction program maintained;nonskid shoes/slippers when out of bed;bed alarm;chair alarm Goal: Infection Control 11/13/14 155 Safety Interventions Isolation Precautions standard precautions maintained Infection Prevention environmental surveillance;hydration promoted;nutrition promoted;promote handwashing Problem: Fall/Trauma/Injury Risk (Adult, Obstetrics) Goal: Absence of Trauma/Injury/Falls Patient will demonstrate the desired outcomes. 11/13/14 155 Fall/Trauma/Injury Risk (Adult, Obstetrics) Absence of Trauma/Injury/Falls making progress toward outcome Pt.'s room organized to minimize risk of injury secondary to falls. Obstacles in pt. pathway to bathroom and chair removed. Call larson and belongings placed within reach at all times. Instructions givenwith regard to notifying nurse when pt. is about to ambulate so nurse may provide assistance if needed. Bed and chair alarm placed on pt as a reminder to prevent falls Plan of Care - Carolyn Howard RN - 11/13/2014 5:02 AM EDT Problem: General Plan of Care Goal: Plan of Care Review Outcome: Ongoing (Interventions Implemented as Appropriate) 11/10/14 1339 11/11/14 1546 11/12/142035 Plan of Care Review Plan of Care Outcome Status ongoing (interventions implemented as appropriate) -- -- Progress -- improving -- Coping/Psychosocial Response Interventions Plan of Care Reviewed with -- -- patient OUTCOME EVALUATION NOTE: OUTCOME SUMMARY: Patient again educated on bed alarm and safety. Pt ringing appropriately for the most part, only setting off bed alarm twice. Pt tolerated collar care. Pt given 15mg oxycodone to control pain. Pt madedeal with RN that he would take nebulizer treatment 1x at night, and then again in morning. Pt slept for most of night. PLAN MOVING FORWARD: Continue to monitor for pain, continue to monitor safety INDIVIDUALIZED FALL PREVENTION: Assistance: standby assist Supervision: intermittent Surveillance: Purposeful rounding, masimo, bed alarm Goal: Individualization and Mutuality 11/12/14 0411 Individualization Individualize the Plan of Care: safety, reorientation Goal: Fall Prevention-Safe Patient Handling 11/12/142035 Musculoskeletal Interventions Activity/Level of Assistance up in [place];up in room;with stand by assist Positioning independent Muscle Strengthening personal routines for BADL/IADL promoted Self-Care Promotion independence encouraged while providing assistance;personal routines for BADL/IADL promoted Safety Interventions Safety Precautions/Fall Reduction assistive device;bed alarm;fall reduction program maintained;lighting adjusted for task/safety;low bed;muscle strengthening facilitated;nonskid shoes/slippers when outof bed;room near unit station Perez Fall Risk History of Falling 25 Secondary Diagnosis 15 Ambulatory Aids 15 Intravenous Therapy/Heparin/Saline Lock 20 Gait/Transferring 10 Mental Status 15 Score 100 Activity and Safety Assistive Device Oxygen OTHER Perez Fall Risk High Goal: Infection Control 11/12/142035 Coping/Psychosocial Response Interventions Counseling personal strengths integrated;problem solving facilitated;understanding of situation facilitated;verbalization of feelings encouraged Safety Interventions Isolation Precautions standard precautions maintained Infection Prevention rest/sleep promoted;nutrition promoted;hydration promoted;environmental surveillance;bronchial hygiene promoted Goal: Discharge Needs Assessment 11/07/14 1849 11/10/14 1339 11/11/14 1546 Discharge Needs Assessment Readmission Within the Last 30 Days -- -- no previous admission in last 30 days Equipment Needed After Discharge -- -- walker, rolling Current Discharge Risk -- -- -- Current Health Anticipated Changes Related to Illness -- inability of caregiver to take care of patient -- Self-Care Equipment Currently Used at Home none -- -- Living Environment Transportation Available ambulance;family or friend will provide -- -- 11/13/14453 Discharge Needs Assessment Readmission Within the Last 30 Days -- Equipment Needed After Discharge -- Current Discharge Risk cognitively impaired;substance abuse Current Health Anticipated Changes Related to Illness -- Self-Care Equipment Currently Used at Home -- Living Environment Transportation Available -- Problem: Fall/Trauma/Injury Risk (Adult, Obstetrics) Goal: Absence of Trauma/Injury/Falls Patient will demonstrate the desired outcomes. Outcome: Ongoing (Interventions Implemented as Appropriate) 11/13/14453 Fall/Trauma/Injury Risk (Adult, Obstetrics) Absence of Trauma/Injury/Falls making progress toward outcome Problem: Acute Alcohol Withdrawal Syndrome, Risk For/Actual (Adult, Obstetrics) Goal: Signs and symptoms of listed potential problems will be absent or manageable (reference (AcuteAlcohol Withdrawal Syndrome, Risk For/Actual (Adult, Obstetrics)) CPG) Outcome: Ongoing (Interventions Implemented as Appropriate) 11/11/14 1546 11/12/14 0411 Acute Alcohol Withdrawal Syndrome, Risk For/Actual Problems Assessed (Alcohol Withdrawal Syndrome) all -- Problems Present (Alcohol Withdrawal Syndrome) -- situational response Plan of Care - Almaz Martinez RN - 11/12/2014 3:23 PM EDT Problem: General Plan of Care Goal: Plan of Care Review Outcome: Ongoing (Interventions Implemented as Appropriate) 11/10/14 1339 11/11/14 1546 11/12/14 1000 Plan of Care Review Plan of Care Outcome Status ongoing (interventions implemented as appropriate) -- -- Progress -- improving -- Coping/Psychosocial Response Interventions Plan of Care Reviewed with -- -- patient OUTCOME EVALUATION NOTE: OUTCOME SUMMARY: Pt alert and oriented, at times slightly confused about using the call light. Has used the call light appropriately at times. Pt up with OT in halls, up in room with sba to bathroom and chair. Pt voiding, tolerating diet, and drinking adequate amounts. Pt receiving 15 Oxycodone for generalized pain. [place] on and aligned. Very pleasant and easily reoriented if confused. PLAN MOVING FORWARD: Ensure safety, monitor pain an provide medications as needed INDIVIDUALIZED FALL PREVENTION: Assistance: Up with sba no walker Supervision: 1 assist with adls' Surveillance: Hourly rounding and masimo CPG GOAL OUTCOME EVALUATION: Goal: Individualization and Mutuality Outcome: Ongoing (Interventions Implemented as Appropriate) 11/11/14 1546 11/12/14 0411 Individualization Individualize the Plan of Care: -- safety, reorientation Patient Specific Preferences Pain control, would like to shower -- Patient Specific Interventions Pain medications, PT/OT,showered with shower chair -- Mutuality/Individual Preferences What anxieties, fears or concerns do you have about your health or care? none expressed -- What questions do you have about your health or care? none -- What information would help us give you more personalized care? none -- Goal: Fall Prevention-Safe Patient Handling Outcome: Ongoing (Interventions Implemented as Appropriate) 11/08/14 0800 11/12/14 1000 Musculoskeletal Interventions Activity/Level of Assistance -- up ad [place];with stand by assist Positioning -- independent Muscle Strengthening -- personal routines for BADL/IADL promoted Self-Care Promotion -- toileting assistance provided Safety Interventions Safety Precautions/Fall Reduction -- assistive device;environmental modification;fall reduction program maintained;nonskid shoes/slippers when out of bed;room near unit station;supervised activity Perez Fall Risk History of Falling -- 25 Secondary Diagnosis -- 15 Ambulatory Aids -- 15 Intravenous Therapy/Heparin/Saline Lock -- 20 Gait/Transferring -- 10 Mental Status -- 15 Score -- 100 Activity and Safety Assistive Device Oxygen -- OTHER Perez Fall Risk -- High Goal: Infection Control Outcome: Ongoing (Interventions Implemented as Appropriate) 11/12/14 1000 Coping/Psychosocial Response Interventions Counseling calming techniques promoted Safety Interventions Isolation Precautions standard precautions maintained Infection Prevention hydration promoted;nutrition promoted Goal: Discharge Needs Assessment Outcome: Ongoing (Interventions Implemented as Appropriate) 11/07/14 1849 11/10/14 1339 11/11/14 1546 Discharge Needs Assessment Concerns to be Addressed -- -- no discharge needs identified Readmission Within the Last 30 Days -- -- no previous admission in last 30 days Equipment Needed After Discharge -- -- walker, rolling Current Discharge Risk -- -- substance abuse Current Health Anticipated Changes Related to Illness -- inability of caregiver to take care of patient -- Self-Care Equipment Currently Used at Home none -- -- Living Environment Transportation Available ambulance;family or friend will provide -- -- Problem: Fall/Trauma/Injury Risk (Adult, Obstetrics) Goal: Absence of Trauma/Injury/Falls Patient will demonstrate the desired outcomes. Outcome: Ongoing (Interventions Implemented as Appropriate) 11/10/14 2321 Fall/Trauma/Injury Risk (Adult, Obstetrics) Absence of Trauma/Injury/Falls making progress toward outcome Problem: Acute Alcohol Withdrawal Syndrome, Risk For/Actual (Adult, Obstetrics) Goal: Signs and symptoms of listed potential problems will be absent or manageable (reference (AcuteAlcohol Withdrawal Syndrome, Risk For/Actual (Adult, Obstetrics)) CPG) Outcome: Ongoing (Interventions Implemented as Appropriate) 11/11/14 1546 11/12/14 0411 Acute Alcohol Withdrawal Syndrome, Risk For/Actual Problems Assessed (Alcohol Withdrawal Syndrome) all -- Problems Present (Alcohol Withdrawal Syndrome) -- situational response Plan of Care - Carolyn Howard RN - 11/12/2014 4:17 AM EDT Problem: General Plan of Care Goal: Plan of Care Review Outcome: Ongoing (Interventions Implemented as Appropriate) 11/10/14 1339 11/11/14 1546 11/11/142043 Plan of Care Review Plan of Care Outcome Status ongoing (interventions implemented as appropriate) -- -- Progress -- improving -- Coping/Psychosocial Response Interventions Plan of Care Reviewed with -- -- patient OUTCOME EVALUATION NOTE: OUTCOME SUMMARY: During bedside report at change of shift, patient found with [place] J upside down and sideways. Neck stabalized, and [place] adjusted. Patient on bed alarm and educated on safety. Pt setting off bed alarm frequently. Pt c/o waking up and forgetting where is he when he stands up, but states he knows push the red button when I want to get up, I just forget. Pt easily reoriented. Pt tolerated collar care. Pt on ativan scale, scoring only once for insomnia and disorientation. Pt has good urine output, but multiple times throughout the night urine went unmeasured. Pt given 15mg oxycodone to control pain. Pt has redness and a sore on his elbows, pt given mepilex border to cover sore, but he has since pulled it off. Pt requesting a cigarette education provided about fact that he's wearing nicotene patch. Pt refusing nebs, but agreeable to one after c/o episode of SOB. Pt finally appears asleep for substantial chunk of time, around 0400. PLAN MOVING FORWARD: Continue to monitor for pain, continue to monitor safety INDIVIDUALIZED FALL PREVENTION: Assistance: standby assist Supervision: intermittent Surveillance: Purposeful roundingefrain, bed alarm CPG GOAL OUTCOME EVALUATION: Goal: Individualization and Mutuality 11/12/14 0411 Individualization Individualize the Plan of Care: safety, reorientation Goal: Fall Prevention-Safe Patient Handling 11/08/14 0800 11/11/14 204 Musculoskeletal Interventions Activity/Level of Assistance -- up ad [place];up in room Positioning -- independent Muscle Strengthening -- personal routines for BADL/IADL promoted Self-Care Promotion -- assistance provided to decrease frustration;independence encouraged while providing assistance;personal routines for BADL/IADL promoted Safety Interventions Safety Precautions/Fall Reduction -- assistive device;bed alarm;fall reduction program maintained;lighting adjusted for task/safety;low bed;room near unit station;nonskid shoes/slippers when out of bed Perez Fall Risk History of Falling -- 25 Secondary Diagnosis -- 15 Ambulatory Aids -- 15 Intravenous Therapy/Heparin/Saline Lock -- 20 Gait/Transferring -- 10 Mental Status -- 15 Score -- 100 Activity and Safety Assistive Device Oxygen -- OTHER Perez Fall Risk -- High Goal: Infection Control 11/11/14 204 Coping/Psychosocial Response Interventions Counseling goal setting facilitated;personal strengths integrated;understanding of situation facilitated;verbalization of feelings encouraged Safety Interventions Isolation Precautions standard precautions maintained Infection Prevention bronchial hygiene promoted;environmental surveillance;hydration promoted;nutrition promoted;promote handwashing;rest/sleep promoted Goal: Discharge Needs Assessment 11/07/14 1849 11/10/14 1339 11/11/14 1546 Discharge Needs Assessment Concerns to be Addressed -- -- no discharge needs identified Readmission Within the Last 30 Days -- -- no previous admission in last 30 days Equipment Needed After Discharge -- -- walker, rolling Current Discharge Risk -- -- substance abuse Current Health Anticipated Changes Related to Illness -- inability of caregiver to take care of patient -- Self-Care Equipment Currently Used at Home none -- -- Living Environment Transportation Available ambulance;family or friend will provide -- -- Problem: Fall/Trauma/Injury Risk (Adult, Obstetrics) Goal: Absence of Trauma/Injury/Falls Patient will demonstrate the desired outcomes. Outcome: Ongoing (Interventions Implemented as Appropriate) 11/10/14 2321 Fall/Trauma/Injury Risk (Adult, Obstetrics) Absence of Trauma/Injury/Falls making progress toward outcome Problem: Acute Alcohol Withdrawal Syndrome, Risk For/Actual (Adult, Obstetrics) Goal: Signs and symptoms of listed potential problems will be absent or manageable (reference (AcuteAlcohol Withdrawal Syndrome, Risk For/Actual (Adult, Obstetrics)) CPG) 11/11/14 1546 11/12/14 0411 Acute Alcohol Withdrawal Syndrome, Risk For/Actual Problems Assessed (Alcohol Withdrawal Syndrome) all -- Problems Present (Alcohol Withdrawal Syndrome) -- situational response Plan of Care - Elinor Diamond RN - 11/11/2014 3:54 PM EDT Problem: General Plan of Care Goal: Plan of Care Review Outcome: Ongoing (Interventions Implemented as Appropriate) 11/10/14 1339 11/11/14 0800 11/11/14 1546 Plan of Care Review Plan of Care Outcome Status ongoing (interventions implemented as appropriate) -- -- Progress -- -- improving Coping/Psychosocial Response Interventions Plan of Care Reviewed with -- patient -- OUTCOME EVALUATION NOTE: OUTCOME SUMMARY: Patient doing well today, no need for restraints. Patient pain is controlled on oral regimen. Patient working with PT/OT and was able to shower with minimal assistance. Collar care performed. PLAN MOVING FORWARD: Continue to mobilize and progress towards discharge. INDIVIDUALIZED FALL PREVENTION: Assistance: Patient is 1 assist. Supervision: Patient requires minimal assistance. Patient is on a bed alarm. Surveillance: Neurological Assessment, Masimo, Purposeful Rounding, Nurse Knowledge Exchange. CPG GOAL OUTCOME EVALUATION: Goal: Individualization and Mutuality Outcome: Ongoing (Interventions Implemented as Appropriate) 11/11/14 1546 Individualization Individualize the Plan of Care: Pain management,mobilization,IS Patient Specific Preferences Pain control, would like to shower Patient Specific Interventions Pain medications, PT/OT,showered with shower chair Mutuality/Individual Preferences What anxieties, fears or concerns do you have about your health or care? none expressed What questions do you have about your health or care? none What information would help us give you more personalized care? none Goal: Fall Prevention-Safe Patient Handling Outcome: Ongoing (Interventions Implemented as Appropriate) 11/08/14 0811/11/14 0800 Musculoskeletal Interventions Activity/Level of Assistance -- up ad [place];up in room;ambulated;with walker;with 1-person assist Positioning -- independent Muscle Strengthening -- activity/mobility promoted;mobility in bed promoted;personal routines for BADL/IADL promoted;sitting on edge of bed encouraged Self-Care Promotion -- bathing assistance provided;dressing assistance provided Safety Interventions Safety Precautions/Fall Reduction -- assistive device;bed alarm;commode/urinal/bedpan at bedside;environmental modification;fall reduction program maintained;lighting adjusted for task/safety;nonskid shoes/slippers when out of bed;supervised activity Perez Fall Risk History of Falling -- 25 Secondary Diagnosis -- 15 Ambulatory Aids -- 15 Intravenous Therapy/Heparin/Saline Lock -- 20 Gait/Transferring -- 10 Mental Status -- 15 Score -- 100 Activity and Safety Assistive Device Oxygen -- OTHER Perez Fall Risk -- High Goal: Infection Control Outcome: Ongoing (Interventions Implemented as Appropriate) 11/11/14 0800 Coping/Psychosocial Response Interventions Counseling emotional support provided;understanding of situation facilitated Safety Interventions Isolation Precautions standard precautions maintained Infection Prevention bronchial hygiene promoted;environmental surveillance;hydration promoted;nutrition promoted;promote handwashing Goal: Discharge Needs Assessment Outcome: Ongoing (Interventions Implemented as Appropriate) 11/07/14 1849 11/10/14 1339 11/11/14 1546 Discharge Needs Assessment Concerns to be Addressed -- -- no discharge needs identified Readmission Within the Last 30 Days -- -- no previous admission in last 30 days Equipment Needed After Discharge -- -- walker, rolling Current Discharge Risk -- -- substance abuse Current Health Anticipated Changes Related to Illness -- inability of caregiver to take care of patient -- Self-Care Equipment Currently Used at Home none -- -- Living Environment Transportation Available ambulance;family or friend will provide -- -- Problem: Fall/Trauma/Injury Risk (Adult, Obstetrics) Goal: Absence of Trauma/Injury/Falls Patient will demonstrate the desired outcomes. Outcome: Ongoing (Interventions Implemented as Appropriate) 11/10/14 2321 Fall/Trauma/Injury Risk (Adult, Obstetrics) Absence of Trauma/Injury/Falls making progress toward outcome Problem: Acute Alcohol Withdrawal Syndrome, Risk For/Actual (Adult, Obstetrics) Goal: Signs and symptoms of listed potential problems will be absent or manageable (reference (AcuteAlcohol Withdrawal Syndrome, Risk For/Actual (Adult, Obstetrics)) CPG) Outcome: Ongoing (Interventions Implemented as Appropriate) 11/11/14 1546 Acute Alcohol Withdrawal Syndrome, Risk For/Actual Problems Assessed (Alcohol Withdrawal Syndrome) all Problems Present (Alcohol Withdrawal Syndrome) none Plan of Care - Carolyn Howard RN - 11/10/2014 11:45 PM EDT Problem: General Plan of Care Goal: Plan of Care Review 11/10/14 1339 11/10/141933 Plan of Care Review Plan of Care Outcome Status ongoing (interventions implemented as appropriate) -- Progress progress toward functional goals is gradual -- Coping/Psychosocial Response Interventions Plan of Care Reviewed with -- patient OUTCOME EVALUATION NOTE: OUTCOME SUMMARY: At beginning of shift pt was in carmine restraint. Pt was assessed to longer need the restraint and when order no new order was needed. RN dc'd restraint but maintained patient on bed alarm and educated patient on safety. Pt on ativan scale, not scoring. Pt given 10mg oxycodone to control pain. Pt c/o headache, relieved by tylenol. Pt appropriately ringing. PLAN MOVING FORWARD: Continue to monitor for pain, continue to monitor safety INDIVIDUALIZED FALL PREVENTION: Assistance: Pt not oob this shift Supervision: intermittent Surveillance: Purposeful rounding, restraint visual checks, and carmine (until dc'd), masimo, bed alarm CPG GOAL OUTCOME EVALUATION: Goal: Individualization and Mutuality 11/10/142320 Individualization Individualize the Plan of Care: discontinue restraints, maintain safety, Goal: Fall Prevention-Safe Patient Handling 11/08/14 0800 11/10/14193311/10/142157 Musculoskeletal Interventions Activity/Level of Assistance -- (pt not oob this shift) -- Positioning -- independent -- Muscle Strengthening -- personal routines for BADL/IADL promoted;mobility in bed promoted -- Self-Care Promotion -- adaptive equipment provided;assistance provided to decrease frustration;independence encouraged while providing assistance;instruction in safe use of adaptive equipment provided;personal routines for BADL/IADL promoted -- Safety Interventions Safety Precautions/Fall Reduction -- bed alarm;family at bedside -- Perez Fall Risk History of Falling -- -- 25 Secondary Diagnosis -- -- 15 Ambulatory Aids -- -- 0 Intravenous Therapy/Heparin/Saline Lock -- -- 20 Gait/Transferring -- -- 0 Mental Status -- -- 0 Score -- -- 60 Activity and Safety Assistive Device Oxygen -- -- OTHER Perez Fall Risk -- -- High Goal: Infection Control 11/10/141933 Coping/Psychosocial Response Interventions Counseling goal setting facilitated;personal strengths integrated;problem solving facilitated;understanding of situation facilitated Safety Interventions Isolation Precautions standard precautions maintained Infection Prevention bronchial hygiene promoted;hydration promoted;environmental surveillance;nutrition promoted;promote handwashing;rest/sleep promoted Goal: Discharge Needs Assessment 11/07/14 18411/[id number] Discharge Needs Assessment Concerns to be Addressed -- patient refuses services (refuses collar care earlier today) -- Readmission Within the Last 30 Days -- -- no previous admission in last 30 days Current Discharge Risk substance abuse -- -- Current Health Anticipated Changes Related to Illness -- -- inability of caregiver to take care of patient Living Environment Transportation Available ambulance;family or friend will provide -- -- Problem: Fall/Trauma/Injury Risk (Adult, Obstetrics) Goal: Absence of Trauma/Injury/Falls Patient will demonstrate the desired outcomes. Outcome: Ongoing (Interventions Implemented as Appropriate) 11/10/14 2321 Fall/Trauma/Injury Risk (Adult, Obstetrics) Absence of Trauma/Injury/Falls making progress toward outcome Problem: Acute Alcohol Withdrawal Syndrome, Risk For/Actual (Adult, Obstetrics) Goal: Signs and symptoms of listed potential problems will be absent or manageable (reference (AcuteAlcohol Withdrawal Syndrome, Risk For/Actual (Adult, Obstetrics)) CPG) 11/10/14 2321 Acute Alcohol Withdrawal Syndrome, Risk For/Actual Problems Assessed (Alcohol Withdrawal Syndrome) all Problems Present (Alcohol Withdrawal Syndrome) situational response Plan of Care - Azalea Cotton RN - 11/10/2014 1:45 PM EDT Problem: General Plan of Care Goal: Plan of Care Review Outcome: Ongoing (Interventions Implemented as Appropriate) 11/10/14 1339 Plan of Care Review Plan of Care Outcome Status ongoing (interventions implemented as appropriate) Progress progress toward functional goals is gradual Coping/Psychosocial Response Interventions Plan of Care Reviewed with patient OUTCOME EVALUATION NOTE: OUTCOME SUMMARY: Pt initially started day in mitts, wrist restraints, and carmine. Throughout the day RN progressively removed devices as patient cleared/received Ativan and became more appropriate. DVT study done at bedside due to patient's inconsistent demeanor and periods of confusion. Pt eating and drinking without issues but has trouble getting food past his cervical collar at times. Pt asking RN what this kind of program is and RN reminded pt he was in a hospital and why he was here. PLAN MOVING FORWARD: Safety, continue Ativan scale, encourage PO fluids, BM INDIVIDUALIZED FALL PREVENTION: Assistance: Patient remains in bed on bed alarm for safety. Patient has a call larson within reach andalerts RN appropriately when they want to mobilize. Supervision: Needs help with repositioning, toileting, and setting up his meals. Surveillance: Hourly Rounding, Masimo, visual checks for restraints, ativan scoring q2h when awake CPG OUTCOME EVALUATION: Goal: Individualization and Mutuality Outcome: Ongoing (Interventions Implemented as Appropriate) 11/10/14 1339 Individualization Individualize the Plan of Care: safety Goal: Fall Prevention-Safe Patient Handling Outcome: Ongoing (Interventions Implemented as Appropriate) 11/08/14 0800 11/09/14 2100 11/10/14 1016 Musculoskeletal Interventions Activity/Level of Assistance -- up in room;with 1-person assist -- Positioning -- -- independent Muscle Strengthening -- -- activity/mobility promoted;mobility in bed promoted Self-Care Promotion -- -- independence encouraged while providing assistance Safety Interventions Safety Precautions/Fall Reduction -- -- bed alarm;commode/urinal/bedpan at bedside;environmental modification;fall reduction program maintained;lighting adjusted for task/safety;low bed;supervised activity;other (see comments) (restraints) Perez Fall Risk History of Falling -- -- 25 Secondary Diagnosis -- -- 15 Ambulatory Aids -- -- 0 Intravenous Therapy/Heparin/Saline Lock -- -- 20 Gait/Transferring -- -- 20 Mental Status -- -- 15 Score -- -- 95 Activity and Safety Assistive Device Oxygen -- -- OTHER Perez Fall Risk -- -- High Goal: Infection Control Outcome: Ongoing (Interventions Implemented as Appropriate) 11/09/14 2100 11/10/14 1016 Coping/Psychosocial Response Interventions Counseling reassurance provided;understanding of situation facilitated;verbalization of feelings encouraged -- Safety Interventions Isolation Precautions -- standard precautions maintained Infection Prevention -- hydration promoted;nutrition promoted;rest/sleep promoted Goal: Discharge Needs Assessment Outcome: Ongoing (Interventions Implemented as Appropriate) 11/10/14 1339 Discharge Needs Assessment Readmission Within the Last 30 Days no previous admission in last 30 days Current Health Anticipated Changes Related to Illness inability of caregiver to take care of patient Problem: Fall/Trauma/Injury Risk (Adult, Obstetrics) Goal: Absence of Trauma/Injury/Falls Patient will demonstrate the desired outcomes. Outcome: Ongoing (Interventions Implemented as Appropriate) 11/10/14 1339 Fall/Trauma/Injury Risk (Adult, Obstetrics) Absence of Trauma/Injury/Falls making progress toward outcome Problem: Acute Alcohol Withdrawal Syndrome, Risk For/Actual (Adult, Obstetrics) Goal: Signs and symptoms of listed potential problems will be absent or manageable (reference (AcuteAlcohol Withdrawal Syndrome, Risk For/Actual (Adult, Obstetrics)) CPG) Outcome: Ongoing (Interventions Implemented as Appropriate) 11/10/14 1339 Acute Alcohol Withdrawal Syndrome, Risk For/Actual Problems Assessed (Alcohol Withdrawal Syndrome) all Problems Present (Alcohol Withdrawal Syndrome) situational response Consult Note - Jordi Hart RN - 11/10/2014 11:28 AM EDT This chart was reviewed for a quality improvement initiative. Jordi Hart Pager #[phone] Domenic Lovelace Pager #[phone] Plan of Care - Fabby Abbott RN - 11/10/2014 4:35 AM EDT Problem: General Plan of Care Goal: Plan of Care Review Outcome: Ongoing (Interventions Implemented as Appropriate) 11/10/14 0408 Plan of Care Review Plan of Care Outcome Status ongoing (interventions implemented as appropriate) Progress declining Coping/Psychosocial Response Interventions Plan of Care Reviewed with patient OUTCOME EVALUATION NOTE: OUTCOME SUMMARY: At start of shift, pt was not in any restraints and was disoriented to place only. However, he quickly set off bed alarm and had pulled off [place] collar by the time staff got to his bedside. He was uncooperative at this time. MD re- ordered restraints, and pt placed in [place]. He was able to untie this and get out of bed/[place] J again. Security assisted in putting pt in bilateral mitts and soft wristrestraints. Over the course of the night, pt became increasingly agitated, confused, and diaphoretic. Ativan Assessment score increased to 11 points, and PRN and scheduled Ativan given with no effect. For several hours, he thrashed around in bed, attempted to take off his mitts, and could not be re-dir ected or re-oriented. MD at bedside when pt was at peak of agitation and having hallucinations. Pt's BP also elevated, with diastolics into the low 100s. PRN labetolol administered x2 with minimaleffect. Pt reports severe pain in right ribs and neck. 15 mg oxycodone given once, but unclear if effective due to pt's agitation. Lungs coarse to auscultation and pt [place]. Unable to take scheduled neb treatments through night. Voiding adequate amounts of urine via condom catheter/urinal. PLAN MOVING FORWARD: Pain control Ativan Assessment Scale Frequent visual checks Restraints as necessary INDIVIDUALIZED FALL PREVENTION: Assistance: Bed rest this shift, repositions self independently Supervision: Moderate assist with ADLs Surveillance: Purposeful rounding, bed alarm, Masimo monitoring, Q30 min visual checks, Q2H restraint checks, Ativan Assessment scale CPG GOAL OUTCOME EVALUATION: Goal: Individualization and Mutuality Outcome: Ongoing (Interventions Implemented as Appropriate) Goal: Fall Prevention-Safe Patient Handling Outcome: Ongoing (Interventions Implemented as Appropriate) 11/08/14 0800 11/09/142099 Musculoskeletal Interventions Activity/Level of Assistance -- up in room;with 1-person assist Positioning -- independent Muscle Strengthening -- mobility in bed promoted Self-Care Promotion -- independence encouraged while providing assistance;dressing assistance provided;toileting assistance provided Safety Interventions Safety Precautions/Fall Reduction -- bed alarm;commode/urinal/bedpan at bedside;environmental modification;fall reduction program maintained;lighting adjusted for task/safety;low bed;nonskid shoes/slippers when out of bed;room near unit station;supervised activity Perez Fall Risk History of Falling -- 25 Secondary Diagnosis -- 15 Ambulatory Aids -- 0 Intravenous Therapy/Heparin/Saline Lock -- 20 Gait/Transferring -- 10 Mental Status -- 15 Score -- 85 Activity and Safety Assistive Device Oxygen -- OTHER Perez Fall Risk -- High Goal: Infection Control Outcome: Ongoing (Interventions Implemented as Appropriate) 11/09/142099 Coping/Psychosocial Response Interventions Counseling reassurance provided;understanding of situation facilitated;verbalization of feelings encouraged Safety Interventions Isolation Precautions standard precautions maintained Infection Prevention bronchial hygiene promoted;environmental surveillance;hydration promoted;rest/sleep promoted Goal: Discharge Needs Assessment Outcome: Ongoing (Interventions Implemented as Appropriate) Problem: Skin Integrity Impairment, Risk/Actual (Adult, Obstetrics) Goal: Skin Integrity/Wound Healing Patient will demonstrate the desired outcomes. Outcome: Ongoing (Interventions Implemented as Appropriate) 11/10/14407 Skin Integrity Impairment, Risk/Actual (Adult, Obstetrics) Skin Integrity/Wound Healing making progress toward outcome Problem: Fall/Trauma/Injury Risk (Adult, Obstetrics) Goal: Absence of Trauma/Injury/Falls Patient will demonstrate the desired outcomes. Outcome: Ongoing (Interventions Implemented as Appropriate) 11/10/14407 Fall/Trauma/Injury Risk (Adult, Obstetrics) Absence of Trauma/Injury/Falls making progress toward outcome Problem: Brain Injury, Moderate Traumatic ([place] Coma Scale Score of 9 to 12) (Adult) Goal: Signs and symptoms of listed potential problems will be absent or manageable (reference (BrainInjury, Moderate Traumatic ([place] Coma Scale Score of 9 to 12) (Adult)) CPG) Outcome: Ongoing (Interventions Implemented as Appropriate) 11/08/14195111/10/14407 Brain Injury, Moderate Traumatic ([place] Coma Scale Score of 9 to 12) Problems Assessed (Moderate Traumatic Brain Injury ([place] Coma Scale score of 9 to 12)) -- all Problems Present (Moderate Traumatic Brain Injury ([place] Coma Scale score of 9 to 12)) pain;situational response -- Plan of Care - Diomedes Cerda RN - 11/09/2014 3:30 PM EDT Problem: General Plan of Care Goal: Plan of Care Review 11/09/14 1523 Plan of Care Review Plan of Care Outcome Status ongoing (interventions implemented as appropriate) Progress improving Coping/Psychosocial Response Interventions Plan of Care Reviewed with patient OUTCOME EVALUATION NOTE: OUTCOME SUMMARY: See admission note for full patient story. Since then, patient has had all restraints removed, is resting in bed comfortably with bed alarm activated. Has tried to get OOB on 2 occasions, one was when he removed his Masimo due to not knowing what it is and the other was to remove ankle restraints. Hasnot reached for his [place] today, voiding good amounts. Scoring (2) & (4) on the ativan assessment scale since arrival. No ativan given, pain controled with 15 mg of PO oxycodone. PLAN MOVING FORWARD: Reorient, q2 ativan assessment/vitals, PRN pain control INDIVIDUALIZED FALL PREVENTION: Assistance: Independent with stand by assist per unit protocol Supervision: Hands on assist with all ADL's Surveillance: Efrain purposeful rounding CPG GOAL OUTCOME EVALUATION: Goal: Individualization and Mutuality 11/07/14 0348 Individualization Individualize the Plan of Care: comfort Goal: Fall Prevention-Safe Patient Handling 11/08/1479911/09/14 1200 Musculoskeletal Interventions Activity/Level of Assistance -- up in room;with 1-person assist Positioning -- independent Muscle Strengthening activity/mobility promoted;personal routines for BADL/IADL promoted -- Self-Care Promotion adaptive equipment provided;hygiene assistance provided;meal setup provided;toileting offered -- Safety Interventions Safety Precautions/Fall Reduction -- bed alarm;environmental modification;fall reduction program maintained;nonskid shoes/slippers when out of bed Perez Fall Risk History of Falling -- 25 Secondary Diagnosis -- 15 Ambulatory Aids -- 15 Intravenous Therapy/Heparin/Saline Lock -- 20 Gait/Transferring -- 10 Mental Status -- 15 Score -- 100 Activity and Safety Assistive Device Oxygen -- OTHER Perez Fall Risk -- High Goal: Infection Control 11/08/1479911/09/1479911/09/14 1200 Coping/Psychosocial Response Interventions Counseling calming techniques promoted -- -- Safety Interventions Isolation Precautions -- -- standard precautions maintained Infection Prevention -- environmental surveillance;hydration promoted;nutrition promoted;promote handwashing;rest/sleep promoted -- Goal: Discharge Needs Assessment 11/07/14 18411/08/141951 Discharge Needs Assessment Concerns to be Addressed -- patient refuses services (refuses collar care earlier today) Readmission Within the Last 30 Days no previous admission in last 30 days -- Equipment Needed After Discharge none -- Current Discharge Risk substance abuse -- Current Health Anticipated Changes Related to Illness inability to care for self -- Self-Care Equipment Currently Used at Home none -- Living Environment Transportation Available ambulance;family or friend will provide -- Problem: Fall/Trauma/Injury Risk (Adult, Obstetrics) Intervention: Muscle Strengthening 11/08/14 08 Musculoskeletal Interventions Muscle Strengthening activity/mobility promoted;personal routines for BADL/IADL promoted Intervention: Self-Care Promotion 11/08/14 08 Musculoskeletal Interventions Self-Care Promotion adaptive equipment provided;hygiene assistance provided;meal setup provided;toileting offered Intervention: Reality Orientation 11/08/14 08 Cognitive/Perceptual/Neuro Interventions Reality Orientation daily routine promoted Intervention: Sensory Stimulation Regulation 11/08/14 08 Cognitive/Perceptual/Neuro Interventions Sensory Stimulation Regulation care clustered;sleep/wake cycle promoted Intervention: Sensation Impairment Protection 11/09/14 1200 Peripheral Neurovascular Interventions Sensation Impairment Protection environment clear of obstacles/tripping hazards;skin surveillance Intervention: Visual Performance Enhancement 11/08/141999 HEENT Interventions Visual Performance Enhancement lighting provided/adjusted Plan of Care - Miguel Lala RN - 11/09/2014 6:42 AM EDT Problem: General Plan of Care Goal: Plan of Care Review 11/07/1434711/08/141999 Plan of Care Review Plan of Care Outcome Status ongoing (interventions implemented as appropriate) -- Progress progress towards functional goals is fair -- Coping/Psychosocial Response Interventions Plan of Care Reviewed with -- patient OUTCOME EVALUATION NOTE: OUTCOME SUMMARY: Patient actively detoxing. He started the evening out impulsive but answering orientation questions.As the evening progressed his orientation level decreased as well as he was also hypertensive, diaphoretic, and hallucinating about bugs, cooking spaghetti etc. He is scoring on the ativan assessment scale and being medicated per scale. PLAN MOVING FORWARD: Continue to monitor patient per ativan assessment scale and treat accordingly. INDIVIDUALIZED FALL PREVENTION: Assistance: 1-2 Supervision: nursing Surveillance: Masimo, bed alarm, purposeful rounding. CPG GOAL OUTCOME EVALUATION: Goal: Individualization and Mutuality 11/07/14347 Individualization Individualize the Plan of Care: comfort Goal: Fall Prevention-Safe Patient Handling 11/08/14 0811/08/14 1700 11/08/141999 Musculoskeletal Interventions Activity/Level of Assistance -- up in room;with 1-person assist;with walker;with gait belt -- Positioning -- -- -- Muscle Strengthening activity/mobility promoted;personal routines for BADL/IADL promoted -- -- Self-Care Promotion adaptive equipment provided;hygiene assistance provided;meal setup provided;toileting offered -- -- Safety Interventions Safety Precautions/Fall Reduction -- -- -- Perez Fall Risk History of Falling -- -- 25 Secondary Diagnosis -- -- 15 Ambulatory Aids -- -- 15 Intravenous Therapy/Heparin/Saline Lock -- -- 20 Gait/Transferring -- -- 10 Mental Status -- -- 15 Score -- -- 100 Activity and Safety Assistive Device Oxygen -- -- OTHER Perez Fall Risk -- -- High 11/09/14 0256 Musculoskeletal Interventions Activity/Level of Assistance -- Positioning independent Muscle Strengthening -- Self-Care Promotion -- Safety Interventions Safety Precautions/Fall Reduction bed alarm;fall reduction program maintained;lighting adjusted for task/safety;low bed;room near unit station Perez Fall Risk History of Falling -- Secondary Diagnosis -- Ambulatory Aids -- Intravenous Therapy/Heparin/Saline Lock -- Gait/Transferring -- Mental Status -- Score -- Activity and Safety Assistive Device -- OTHER Perez Fall Risk -- Goal: Infection Control 11/08/14799 Coping/Psychosocial Response Interventions Counseling calming techniques promoted Safety Interventions Isolation Precautions standard precautions maintained Infection Prevention hydration promoted;nutrition promoted;rest/sleep promoted Goal: Discharge Needs Assessment 11/07/14 1849 11/08/141951 Discharge Needs Assessment Concerns to be Addressed -- patient refuses services (refuses collar care earlier today) Readmission Within the Last 30 Days no previous admission in last 30 days -- Equipment Needed After Discharge none -- Current Discharge Risk substance abuse -- Current Health Anticipated Changes Related to Illness inability to care for self -- Self-Care Equipment Currently Used at Home none -- Living Environment Transportation Available ambulance;family or friend will provide -- Problem: Skin Integrity Impairment, Risk/Actual (Adult, Obstetrics) Intervention: Pressure Reduction Devices 11/08/141999 Skin Interventions Pressure Reduction Devices pressure-redistributing mattress utilized Intervention: Pressure Reduction Techniques 11/08/141999 Skin Interventions Pressure Reduction Techniques tubing/devices free from under/on patient Intervention: Oral Nutrition Promotion 11/08/14 08 Nutrition Interventions Oral Nutrition Promotion positioned for feeding Intervention: Skin/Mucous Membrane Protection 11/08/141999 Skin Interventions Skin/Mucous Membrane Protection oral rinse provided Intervention: Wound Healing Promotion 11/08/141999 Skin Interventions Wound Healing Promotion adequate fluids provided Goal: Skin Integrity/Wound Healing Patient will demonstrate the desired outcomes. 11/07/14347 Skin Integrity Impairment, Risk/Actual (Adult, Obstetrics) Skin Integrity/Wound Healing making progress toward outcome Problem: Fall/Trauma/Injury Risk (Adult, Obstetrics) Intervention: Muscle Strengthening 11/08/14799 Musculoskeletal Interventions Muscle Strengthening activity/mobility promoted;personal routines for BADL/IADL promoted Intervention: Self-Care Promotion 11/08/14799 Musculoskeletal Interventions Self-Care Promotion adaptive equipment provided;hygiene assistance provided;meal setup provided;toileting offered Intervention: Reality Orientation 11/08/14799 Cognitive/Perceptual/Neuro Interventions Reality Orientation daily routine promoted Intervention: Sensory Stimulation Regulation 11/08/14799 Cognitive/Perceptual/Neuro Interventions Sensory Stimulation Regulation care clustered;sleep/wake cycle promoted Intervention: Sensation Impairment Protection 11/08/141599 Peripheral Neurovascular Interventions Sensation Impairment Protection skin surveillance;environment clear of obstacles/tripping hazards;provided cautionary cues;external pressure sources minimized Intervention: Visual Performance Enhancement 11/08/141999 HEENT Interventions Visual Performance Enhancement lighting provided/adjusted Goal: Absence of Trauma/Injury/Falls Patient will demonstrate the desired outcomes. 11/07/14347 Fall/Trauma/Injury Risk (Adult, Obstetrics) Absence of Trauma/Injury/Falls making progress toward outcome Problem: Brain Injury, Moderate Traumatic ([place] Coma Scale Score of 9 to 12) (Adult) Intervention: Decreased ICP Promotion 11/08/14799 Cognitive/Perceptual/Neuro Interventions Decreased ICP Promotion care clustered;bed rest;nausea management to avoid vomiting Intervention: Seizure Precautions 11/08/14799 Safety Interventions Seizure Precautions clutter-free environment;BADL/IADL supervision;emergency equipment at bedside Intervention: Thermoregulation Maintenance 11/08/14799 Cardiac Interventions Cooling Thermoregulation Maintenance antipyretics given;lightweight clothing/blankets used Intervention: Hemodynamic Stabilization 11/08/141999 Cardiac Interventions Hemodynamic Stabilization antihypertensive medication management Intervention: O2 Consumption Minimization 11/08/14799 Cardiac Interventions O2 Consumption Minimization activity assistance provided;care clustered;breathing techniques utilized;sleep/rest promoted Intervention: Airway/Ventilation Management 11/09/14636 Respiratory Interventions Airway/Ventilation Management comfort measures provided;hydration promoted Goal: Signs and symptoms of listed potential problems will be absent or manageable (reference (BrainInjury, Moderate Traumatic ([place] Coma Scale Score of 9 to 12) (Adult)) CPG) 11/08/141951 Brain Injury, Moderate Traumatic ([place] Coma Scale Score of 9 to 12) Problems Assessed (Moderate Traumatic Brain Injury ([place] Coma Scale score of 9 to 12)) all Problems Present (Moderate Traumatic Brain Injury ([place] Coma Scale score of 9 to 12)) pain;situational response Plan of Care - Marie Rueda RN - 11/08/2014 8:00 PM EDT Problem: General Plan of Care Goal: Plan of Care Review Outcome: Ongoing (Interventions Implemented as Appropriate) 11/07/14 0348 11/08/14 170 Plan of Care Review Plan of Care Outcome Status ongoing (interventions implemented as appropriate) -- Progress progress towards functional goals is fair -- Coping/Psychosocial Response Interventions Plan of Care Reviewed with -- patient OUTCOME EVALUATION NOTE: OUTCOME SUMMARY: q 2 hr ativan assessment and treatment as per orders OOB w/ FWW, gait belt, 1 person contact Pt A+Ox4 07/07 strengths Pt refused collar care earlier today; will address again Good appetite PRN pain management; see MAR No visual/aud hallucinations evident Pt did not tolerate MRI today PLAN MOVING FORWARD: Maintain ativan assessment Falls precautions; pt safety maintained Collar care as granted by pt; pt education endorsed on this Pain management INDIVIDUALIZED FALL PREVENTION: Assistance: OOB w/ FWW, gait belt, with 1 contact assist Supervision: ANURADHA ROMAN Surveillance: Hourly rounding; bedside report CPG GOAL OUTCOME EVALUATION: Goal: Fall Prevention-Safe Patient Handling Outcome: Ongoing (Interventions Implemented as Appropriate) 11/08/14 0800 11/08/14 1600 11/08/14 1700 Musculoskeletal Interventions Activity/Level of Assistance -- -- up in room;with 1-person assist;with walker;with gait belt Positioning -- -- independent Muscle Strengthening activity/mobility promoted;personal routines for BADL/IADL promoted -- -- Self-Care Promotion adaptive equipment provided;hygiene assistance provided;meal setup provided;toileting offered -- -- Safety Interventions Safety Precautions/Fall Reduction -- assistive device;bed alarm;fall reduction program maintained;nonskid shoes/slippers when out of bed;room near unit station -- Perez Fall Risk History of Falling -- 25 -- Secondary Diagnosis -- 15 -- Ambulatory Aids -- 15 -- Intravenous Therapy/Heparin/Saline Lock -- 20 -- Gait/Transferring -- 10 -- Mental Status -- 15 -- Score -- 100 -- Activity and Safety Assistive Device Oxygen -- -- OTHER Perez Fall Risk -- High -- Goal: Infection Control Outcome: Ongoing (Interventions Implemented as Appropriate) 11/08/14 0800 Coping/Psychosocial Response Interventions Counseling calming techniques promoted Safety Interventions Isolation Precautions standard precautions maintained Infection Prevention hydration promoted;nutrition promoted;rest/sleep promoted Goal: Discharge Needs Assessment Outcome: Ongoing (Interventions Implemented as Appropriate) 11/07/14 18411/08/141951 Discharge Needs Assessment Concerns to be Addressed -- patient refuses services (refuses collar care earlier today) Readmission Within the Last 30 Days no previous admission in last 30 days -- Equipment Needed After Discharge none -- Current Discharge Risk substance abuse -- Current Health Anticipated Changes Related to Illness inability to care for self -- Self-Care Equipment Currently Used at Home none -- Living Environment Transportation Available ambulance;family or friend will provide -- Problem: Skin Integrity Impairment, Risk/Actual (Adult, Obstetrics) Goal: Skin Integrity/Wound Healing Patient will demonstrate the desired outcomes. Outcome: Ongoing (Interventions Implemented as Appropriate) 11/07/14347 Skin Integrity Impairment, Risk/Actual (Adult, Obstetrics) Skin Integrity/Wound Healing making progress toward outcome Problem: Fall/Trauma/Injury Risk (Adult, Obstetrics) Goal: Absence of Trauma/Injury/Falls Patient will demonstrate the desired outcomes. Outcome: Ongoing (Interventions Implemented as Appropriate) 11/07/14347 Fall/Trauma/Injury Risk (Adult, Obstetrics) Absence of Trauma/Injury/Falls making progress toward outcome Problem: Brain Injury, Moderate Traumatic ([place] Coma Scale Score of 9 to 12) (Adult) Goal: Signs and symptoms of listed potential problems will be absent or manageable (reference (BrainInjury, Moderate Traumatic ([place] Coma Scale Score of 9 to 12) (Adult)) CPG) Outcome: Ongoing (Interventions Implemented as Appropriate) 11/08/141951 Brain Injury, Moderate Traumatic ([place] Coma Scale Score of 9 to 12) Problems Assessed (Moderate Traumatic Brain Injury ([place] Coma Scale score of 9 to 12)) all Problems Present (Moderate Traumatic Brain Injury ([place] Coma Scale score of 9 to 12)) pain;situational response Initial Assessments - Darlene Rajanricia, OT - 11/08/2014 2:01 PM EDT Occupational Therapy Evaluation Patient profile: Derrick Hobson is a 59 y.o. male patient of Dorian Singleton MD, admitted on11/06/2014 2 days after he feel down 1/2 flight of stairs, on 11/06. Per general surgery, patient was drinking alcohol as per his usual routine and feel down half a flight of stairs and was knocked unconscious. When he awoke after an unknown length of time he was disoriented to place and situation. Head CT revealed a hyperdensity in (R) frontal lobe concerning for IPH vs DVA vs mass. OT consult received. History reviewed. No pertinent past medical history. No past surgical history on file. Social History: Patient lives alone in a second floor apartment in [place], [place]. Pt states that bathroom includes a tub shower with grab bars. Pt has friends who provide rides as needed for shopping / appointments. Pt reports that he sleeps either in reclining chair or in flat bed typically. Stairs: 14 stairs with one rail to enter home Baseline Mobility: independent without use of assistive device; Reports h/o multiple falls; Does notdrive Equipment at home: none Precautions/Special Considerations: Full code; High risk for skin breakdown; At risk to fall; SpinalPrecautions: No bending, twisting, or lifting >5-10 #s, Use log roll for bed mobility, [place] perea times; Maintain SBP <160; EtOH Withdrawal - on Ativan assessment scale Activity Orders: Activity as tolerated Diet: Regular Code Status: Full Code Subjective: I have peed all over myself. This collar is a nuisance, you can't see. Objective: Seen today for OT evaluation in collaboration with P.T.. Cognitive Status/Behavior: alert, oriented to person, place, and time, cooperative, not too talkative or forthcoming. Needs frequent verbal cues during mobility. Appears somewhat impulsive, needed cuesto wait before standing Communication: Able to answer questions, make needs known Vision & Perception: Field of view restricted by C-Collar, otherwise WFL Range of motion, strength, coordination: Bilateral UEs are within functional limitations Sensation: admits to some numbness/tingling beto hands, stating he has had it for awhile Activities of Daily Living: Self-feeding: Modified independent Hygiene grooming: max assist with shaving with c-collar in place. Upper and lower body dressing and bathing: ?? Pt able to sponge bathe and dress while seated at EOB with assist to don socks primarily due to c-collar Toileting: Toilet Transfer: needed min assist and verbal curing for managing walker to corporate learning consultant front of the toilet. Did not get close enough to toilet to reach bowl successfully. Toilet Hygiene: Min assist to maintain standing balance Functional Mobility: Please see P.T/ note. Balance: Fair sitting balance at EOB needs superviison. IADL???s: Assistance available to patient. Endurance: Information taken from last recorded vitals in flowsheet. Last value Range last 8 hrs Heart Rate Heart Rate: 64 Heart Rate: [64-75] Blood Pressure BP: 145/104 mmHg BP: (145-169)/(100-122) SpO2 SpO2: 96 % SpO2: [92 %-96 %] Pain: 10/10 headache. Skin: No problems noted Informed Consent: The patient agrees to and understands the OT treatment plan and goals. Education: patient educated on ADL, Safety, Precautions/Protocol and Recommendations and needs reinforcement. understanding. Patient status, treatment, and mobility recommendations discussed with nursing. Assessment: Pt has been seen by OT for evaluation, and he presents with impaired ability to perform daily activities and functional mobility secondary to recent injuries including rib fractures and need for C-collar. Pt unsteady when standing, requiring walker, gait belt and assist of 1-2 people. Vague about supports at home (neighbors, friends). Pt tolerated session well. Pt would benefit from ongoing OT services to maximize functional independence. Recommendations: Equipment needs at discharge: Rolling walker and Shower chair Discharge Recommendations: Patient requires ongoing 24/7 supervision. Patient would benefit from skilled therapy interventions to promote functional independence and safety while improving activity tolerance. Goals: To be achieved by 913/15. 1. Pt will demonstrate independent with precautions/restrictions during ADLs. 2. Pt will perform sink level ADLs with supervision only. 3. Pt will dress self independently using adaptive technique/equipment as needed. 4. Pt will ambulate within room for ADLs with assistive device as needed. Pt will demonstrate understanding of mild head injury symptoms and precautions. Plan: Pt to be seen 2-4x per week for therapy including Assistive device/technique, ADL, Safety, Precautions/Protocol, Functional Mobility, Activity pacing/Energy conservation, Recommendations and Discharge planning Eval Date: 11/08/2014 Total time spent with patient: 30 minutes evaluation Total timed interventions: 0 minutes Pager: [phone] YASMIN RAJAN OT 11/08/2014 Occupational Therapy Rehabilitation Department Initial Assessments - Patsy Alcaraz, PT - 11/08/2014 9:45 AM EDT Physical Therapy Evaluation Patient profile: Derrick Hobson is a 59 y.o. right handed male presented to [facility] on 11/06/2014 by Dorian Singleton MD 2 days after he feel down 1/2 flight of stairs, on 11/06. Per general surgery, patient was drinking alcohol as per his usual routine and feel down half a flight of stairs and was knocked unconscious. When he awoke after an unknown length of time he was disoriented to place and situation. Head CT revealed a hyperdensity in (R) frontal lobe concerning for IPH vs DVA vs mass. PT Consult Received 11/07 for initial evaluation. Patient with the following active problems: There is no problem list on file for this patient. PMH: History reviewed. No pertinent past medical history. No past surgical history on file. Social History: Patient lives alone in a single story home in [place], [place]. Pt states that bathroom includes a tub shower with grab bars. Pt has friends who provide rides as needed for shopping / appointments. Pt reports that he sleeps either in reclining chair or in flat bed typically. Stairs: 14 stairs with one rail to enter home Baseline Mobility: independent without use of assistive device; Reports h/o multiple falls; Does notdrive Equipment at home: none Precautions/Special Considerations: Full code; High risk for skin breakdown; At risk to fall; SpinalPrecautions: No bending, twisting, or lifting >5-10 #s, Use log roll for bed mobility, Daphnie perea times; Maintain SBP <160; EtOH Withdrawal - on Ativan assessment scale Activity Orders: Activity as tolerated Diet: Regular Staff communication/Mobility Recommendations: Pt. to utilize rolling walker with gait belt and 1-2 person assist for ambulation with nursing. Pt requires cuing for walker placement with toileting. Bed Mobility: please use log roll Subjective: ???No I pretty much do everything, my friends drive me when I need.?? Objective: Pt seen for evaluation today. Pain: 10/10 on Numeric Pain Rating Scale located headache, (R) LQ - rib fractures Vital Signs: Last value Heart Rate Heart Rate: 75 Blood Pressure BP: 153/101 mmHg SpO2 SpO2: 94 % Mental Status: Somewhat drowsy, oriented to month, place, situation Musculoskeletal: LE AROM: WFL LE Strength: WFL LE Sensation: WFL Bed Mobility: Supine to Sit: moderate assist with cuing for log roll using bed rail and with HOB flat Transfers: Sit to Stand: contact guard using rolling walker with increased time Stand to Sit: contact guard using rolling walker Bed to Chair: variable level of assist - contact guard to maximal with LOB using rolling walker Gait: Distance: ~20 feet Device used: rolling walker Level of assist: variable - contact guard to maximal assist with LOB, verbal cuing throughout 2/2 impulsivity to maintain safety and for walker management Gait pattern: widened base of support, short staggering step length (B), forward flexed trunk with reliance on walker for stability Balance: Sitting: WFL Standing: Impaired: 4-5 episodes of loss of balance with ambulation from bed > bathroom > bedside chair, impulsivity contributing to poor dynamic safety at this time Education: patient has been educated on Bed mobility, Transfers, Safety , Gait , Role of therapy, Balance and Discharge planning and needs reinforcement. understanding. Patient status, treatment, and mobility recommendations discussed with nursing. Assessment: Derrick Hobson admitted s/p fall down 1/2 flight stairs with resultant c-spine pain and hyperdensity in (R) frontal lobe concerning for IPH vs DVA vs mass. At this time, pt limited by impulsivity / reduced safety awareness, impaired standing static and dynamic balance, pain, reduced activity tolerance, and requires hands-on assist with cuing for walker management with all transfers and mobility. Pt reports 10/10 headache in addition to (R) LQ pain from rib fracture sites - RN notified.Pt participated in standardized assessment via Six Clicks with raw score of 11/22. Pt encouraged to ambulate with gait belt and rolling walker frequently with staff, getting into the bathroom for toileti ng and walking out in the villeda as able. The pt would benefit from skilled therapy services to maximize functional independence while in the hospital and to address limitations as noted above. Goals: To be achieved by 11/13/14: 1. Pt. to demonstrate knowledge of safety limitations and precautions and will appropriately requestassistance for functional activities and to mobilize. 2. Pt. to perform bed mobility with independent without bed rail and with HOB flat using log roll. 3. Pt. to perform sit to stand transfers with independent utilizing a rolling walker. 4. Pt. to ambulate 150 feet with a rolling walker, and independent. 5. Pt. to ambulate up/down 14 step/stairs with independent, using one railing with second person to provide assist for walker management. 6. Family or caregiver to demonstrate understanding of therapeutic interventions to support the careof the patient. Plan: PT services to resume Friday 11/10. Pt to be seen 3-5 times per week for therapy including Bed mobility, Transfers, Assistive device/technique, Stairs, Exercise, Safety , Precautions/protocol, Gait , Balance and Discharge planning. Patient agrees with plan as stated above. Discharge Recommendations: Patient requires ongoing 24/ supervision. Patient would benefit from skilled therapy interventions to promote functional independence and safety while improving activity tolerance. No other consults recommended at this time Equipment needs: Rolling walker. [facility] AM-PAC 6 Clicks Basic Mobility Inpatient Short Form (Without Stair Climbing) How much difficulty does the patient currently have... Unable without assistance (1) A Lot (2) A Little (3) None (4) 1. Turning over in bed (including adjusting bedclothes, sheets and blankets)? X 2. Sitting down on and standing up from a chair with arms (e.g., wheelchair, bedside commode, etc.)?X 3. Moving from lying on back to sitting on the side of the bed? X How much help from another person does the patient currently need... Total (1) A Lot (2) A Little (3) None (4) 4. Moving to and from a bed to a chair (including a wheelchair)? X 5. Need to walk in hospital room? X Raw Score: 9 Standardized Score: 3.48 CMS 0-100% Score: 76.07% CMS Modifier: CL Time IN / OUT: 9:45 - 10:15 Total time spent with patient: 30 minutes for evaluation in collaboration with OT evaluation Total timed interventions: 0 minutes PATSY ALCARAZ PT, DPT 11/08/2014 Pager: [phone] Physical Therapy Inpatient Rehabilitation Department Plan of Care - Leonor Denney RN - 11/08/2014 6:52 AM EDT Problem: Brain Injury, Moderate Traumatic ([place] Coma Scale Score of 9 to 12) (Adult) Intervention: Decreased ICP Promotion 11/08/14620 Cognitive/Perceptual/Neuro Interventions Decreased ICP Promotion care clustered;hip flexion minimized;fever management Intervention: Seizure Precautions 11/08/14620 Safety Interventions Seizure Precautions BADL/IADL supervision;clutter-free environment;emergency equipment at bedside Intervention: Thermoregulation Maintenance 11/08/14620 Cardiac Interventions Cooling Thermoregulation Maintenance antipyretics given Intervention: Hemodynamic Stabilization 11/08/14620 Cardiac Interventions Hemodynamic Stabilization antihypertensive medication management Intervention: O2 Consumption Minimization 11/08/14620 Cardiac Interventions O2 Consumption Minimization activity assistance provided Intervention: Airway/Ventilation Management 11/08/14620 Respiratory Interventions Airway/Ventilation Management activity adjusted to patient tolerance Intervention: Fluid Management 09/06/15 0621 Nutrition Interventions Fluid Management fluids adjusted OUTCOME EVALUATION NOTE: OUTCOME SUMMARY: A& O x 4/ PERRLA. 3 mm brisk. No drift/droop. Appropriate on my shift Coarse and wheeze lungs. Encouraged brace pillow to cough r/t rib fx. VSS PLAN MOVING FORWARD: Neuro checks Monitor RR and O2 Tx to 3 [place] INDIVIDUALIZED FALL PREVENTION: Assistance: Up with assistance Supervision: unable to summon assistance using the call light. Knowledge deficience Surveillance: Hourly rounding CPG GOAL OUTCOME EVALUATION: No falls on my shift VSS Consult Note - Braulio Caballero [employer] - 11/07/2014 11:58 PM EDT Patient is a 59 year old male with a history of heavy drinking who fell down the stairs 2 days ago. +LOC. He was drunk at the time. He woke up and continued to drink without seeking medical attention. 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 He went to OSH, scans revealed a possible IPH and a R 6th rib Fx. He was transferred here for further management CXR FINDINGS: Chest: A right basal process obscures the right diaphragm and right CP angle. The remaining lungs and left pleural space are clear without evidence of pneumothorax or pleural effusion. The heart, ayush, and pulmonary vascularity are within normal limits. No pneumoperitoneum is seen and osseous structures are normal. Pt Is seen this evening and is medicated and resting. He does not follow advance commands well. RN stated he recently received pain medication. Pt was checked t/o the night and is able to arouse but not follow commands advance commands well. Will see pt in AM when he is hopefully better able to follow advance commands and perform Pulmonary Mechanics with him and if he has a sub standard cough, will consider Aerobika for him. Plan of Care - Nelson Berry RN - 11/07/2014 6:58 PM EDT Problem: General Plan of Care Goal: Plan of Care Review Outcome: Ongoing (Interventions Implemented as Appropriate) 11/07/14 0348 11/07/14 08 Plan of Care Review Plan of Care Outcome Status ongoing (interventions implemented as appropriate) -- Progress progress towards functional goals is fair -- Coping/Psychosocial Response Interventions Plan of Care Reviewed with -- patient Goal: Individualization and Mutuality Outcome: Ongoing (Interventions Implemented as Appropriate) 11/07/14 034 Individualization Individualize the Plan of Care: comfort Goal: Fall Prevention-Safe Patient Handling Outcome: Ongoing (Interventions Implemented as Appropriate) 11/07/14 0811/07/14 1400 11/07/14 1800 Musculoskeletal Interventions Activity/Level of Assistance -- bed rest -- Positioning -- -- HOB up 15 degrees Muscle Strengthening activity/mobility promoted;sitting on edge of bed encouraged -- -- Self-Care Promotion adaptive equipment provided;assistance provided to decrease frustration -- -- Perez Fall Risk History of Falling 25 -- -- Secondary Diagnosis 15 -- -- Ambulatory Aids 0 -- -- Intravenous Therapy/Heparin/Saline Lock 20 -- -- Gait/Transferring 10 -- -- Mental Status 15 -- -- Score 85 -- -- Activity and Safety Assistive Device -- -- Oxygen OTHER Perez Fall Risk High -- -- Safety Interventions Safety Precautions/Fall Reduction -- -- bed alarm;environmental modification;fall reduction program maintained;lighting adjusted for task/safety;low bed;nonskid shoes/slippers when out of bed;room nearunit station;supervised activity Goal: Infection Control Outcome: Ongoing (Interventions Implemented as Appropriate) 11/07/14 0811/07/14 1800 Coping/Psychosocial Response Interventions Counseling calming techniques promoted;emotional support provided -- Safety Interventions Isolation Precautions -- standard precautions maintained Infection Prevention bronchial hygiene promoted;hydration promoted;nutrition promoted -- Goal: Discharge Needs Assessment Outcome: Ongoing (Interventions Implemented as Appropriate) 11/07/1434711/07/14 1849 Discharge Needs Assessment Concerns to be Addressed denies needs/concerns at this time -- Readmission Within the Last 30 Days -- no previous admission in last 30 days Equipment Needed After Discharge -- none Current Discharge Risk -- substance abuse Current Health Anticipated Changes Related to Illness -- inability to care for self Self-Care Equipment Currently Used at Home -- none Living Environment Transportation Available -- ambulance;family or friend will provide Problem: Skin Integrity Impairment, Risk/Actual (Adult, Obstetrics) Goal: Identify Signs and Symptoms and Related Risk Factors Signs and symptoms and related risk factors are identified upon initiation of Human Response Clinical Practice Guideline (CPG) Outcome: Outcome (s) achieved Date Met: 11/07/14 11/07/1434711/07/14 184 Skin Integrity Impairment, Risk/Actual Personal Related Risk Factors (Skin Integrity Impairment, Risk/Actual) stress;substance abuse -- Environmental Related Risk Factors (Skin Integrity Impairment, Risk/Actual) -- trauma Physiological Related Risk Factors (Skin Integrity Impairment, Risk/Actual) oxygen transport impairment -- Treatment Related Related Risk Factors (Skin Integrity Impairment, Risk/Actual) -- invasive catheters;medication Goal: Skin Integrity/Wound Healing Patient will demonstrate the desired outcomes. Outcome: Ongoing (Interventions Implemented as Appropriate) 11/07/14347 Skin Integrity Impairment, Risk/Actual (Adult, Obstetrics) Skin Integrity/Wound Healing making progress toward outcome Problem: Fall/Trauma/Injury Risk (Adult, Obstetrics) Goal: Identify Signs and Symptoms and Related Risk Factors Signs and symptoms and related risk factors are identified upon initiation of Human Response Clinical Practice Guideline (CPG) Outcome: Outcome (s) achieved Date Met: 11/07/14 11/07/14347 Fall/Trauma/Injury Risk Personal Related Risk Factors (Fall/Trauma/Injury Risk) emotional state;fatigue/slowed reaction time;gait/mobility problems/weakness;history of falls;sleep disturbance;substance abuse Environmental Related Risk Factors (Fall/Trauma/Injury Risk) environment unfamiliar Physiological Related Risk Factors (Fall/Trauma/Injury Risk) musculoskeletal alterations;pain Treatment Related Related Risk Factors (Fall/Trauma/Injury Risk) invasive/noninvasive equipment;medication;bed rest Signs and Symptoms (Fall/Trauma/Injury Risk) decreased knowledge of safety/environmental hazards;nonalliance with safety precautions;presence of risk factors Goal: Absence of Trauma/Injury/Falls Patient will demonstrate the desired outcomes. Outcome: Ongoing (Interventions Implemented as Appropriate) 11/07/14347 Fall/Trauma/Injury Risk (Adult, Obstetrics) Absence of Trauma/Injury/Falls making progress toward outcome Comments: OUTCOME EVALUATION NOTE: OUTCOME SUMMARY: Pt c/o pain, 7-9/10, throughout the shift in Right rib, neck, and head regions, Pt medicated for pain. Pt calm and cooperative throughout shift. TLS cleared, cervical collar remains intact, AAS every 2hours, Pt scoring 4-8, medicated per scale appropriately. Manual C-Spine for all collar changes. PLAN MOVING FORWARD: Mobilize while medicated for pain and continue with current plan of care. INDIVIDUALIZED FALL PREVENTION: Assistance: 2 person Supervision: RN, Hands-on, Manual C-Spine for all collar changes. Surveillance: SpO2, Tele CPG GOAL OUTCOME EVALUATION: Pt is progressing toward outcomes. Plan of Care - Amish Lee RN - 11/07/2014 4:23 AM EDT Problem: General Plan of Care Goal: Plan of Care Review Outcome: Ongoing (Interventions Implemented as Appropriate) 11/07/14347 Plan of Care Review Plan of Care Outcome Status ongoing (interventions implemented as appropriate) Progress progress towards functional goals is fair Coping/Psychosocial Response Interventions Plan of Care Reviewed with patient OUTCOME EVALUATION NOTE: OUTCOME SUMMARY: Pt transferred to NSCU from ER around 2100. Ao x 4, PERRL, motor 5/5 on all extremities. No facial droop noticed. Agitated/restless at times. Ativan assessment scale maintained. SBP around 160s. MD notified. Lebatolol ordered to keep SBP<160. 3L-4L O2 NC to keep SPo2> 92%. Life safety evaluated pt's respiratory status at bedside. Pt constantly c/o pain on the neck, back, right lower chest, and head. Pain frequently assessed and addressed with fair outcomes. [place] J collar on. Collar care done. Spine precautions maintained. Multi vitamin IVF administered. Pt urinates to urinal. I&O closely monitored. PLAN MOVING FORWARD: monitor VS, Neuro status, ativan assessment scale, safety and comfort INDIVIDUALIZED FALL PREVENTION: Assistance: Turn self; Supervision: All activities Surveillance: bed alarm on all the time; telemetry; continuous pulse ox; resuscitator/mask/suctions at bedside; frequent rounding maintained. CPG GOAL OUTCOME EVALUATION: all interventions applied appropriately; continue to monitor. Goal: Individualization and Mutuality Outcome: Ongoing (Interventions Implemented as Appropriate) 11/07/14347 Individualization Individualize the Plan of Care: comfort Goal: Fall Prevention-Safe Patient Handling Outcome: Ongoing (Interventions Implemented as Appropriate) 09/04/15 2110 09/05/15 0348 Musculoskeletal Interventions Activity/Level of Assistance bed rest -- Positioning reverse Trendelenberg -- Muscle Strengthening -- activity/mobility promoted;mobility in bed promoted;personal routines for BADL/IADL promoted Self-Care Promotion -- assistance provided to decrease frustration;dressing assistance provided;independence encouraged while providing assistance;hygiene assistance provided;personal routines for BADL/IADL promoted;personal/BADL objects within reach;toileting offered Perez Fall Risk History of Falling 25 -- Secondary Diagnosis 15 -- Ambulatory Aids 0 -- Intravenous Therapy/Heparin/Saline Lock 20 -- Gait/Transferring 10 -- Mental Status 15 -- Score 85 -- Activity and Safety Assistive Device Oxygen -- OTHER Perez Fall Risk High -- Safety Interventions Safety Precautions/Fall Reduction bed alarm;fall reduction program maintained;lighting adjusted for task/safety;low bed;site safety manager;supervised activity -- Goal: Infection Control Outcome: Ongoing (Interventions Implemented as Appropriate) 11/06/14210911/06/142342 Coping/Psychosocial Response Interventions Counseling -- emotional support provided;reassurance provided;relaxation techniques promoted;personal strengths integrated;problem solving facilitated;understanding of situation facilitated;verbalization of feelings encouraged Safety Interventions Infection Prevention environmental surveillance;hydration promoted;nutrition promoted;promote handwashing;rest/sleep promoted -- Goal: Discharge Needs Assessment Outcome: Ongoing (Interventions Implemented as Appropriate) 11/07/14347 Discharge Needs Assessment Concerns to be Addressed denies needs/concerns at this time Problem: Skin Integrity Impairment, Risk/Actual (Adult, Obstetrics) Intervention: Pressure Reduction Devices 11/06/142342 Skin Interventions Pressure Reduction Devices positioning supports utilized Intervention: Pressure Reduction Techniques 11/06/142342 Skin Interventions Pressure Reduction Techniques tubing/devices free from under/on patient;turn sheet used;turned/repositioned Intervention: Oral Nutrition Promotion 11/06/142109 Nutrition Interventions Oral Nutrition Promotion oral hygiene provided Intervention: Skin/Mucous Membrane Protection 11/06/142342 Skin Interventions Skin/Mucous Membrane Protection lip lubricant applied;oral rinse provided;oral hygiene provided;sacral silicone foam dressing;tubing/devices free from under/on patient;pulse oximeter probe site changed Intervention: Wound Healing Promotion 11/06/142342 Skin Interventions Wound Healing Promotion adequate fluids provided;normothermia maintained;oral hygiene provided Goal: Identify Signs and Symptoms and Related Risk Factors Signs and symptoms and related risk factors are identified upon initiation of Human Response Clinical Practice Guideline (CPG) Outcome: Ongoing (Interventions Implemented as Appropriate) 11/07/14347 Skin Integrity Impairment, Risk/Actual Personal Related Risk Factors (Skin Integrity Impairment, Risk/Actual) stress;substance abuse Physiological Related Risk Factors (Skin Integrity Impairment, Risk/Actual) oxygen transport impairment Goal: Skin Integrity/Wound Healing Patient will demonstrate the desired outcomes. Outcome: Ongoing (Interventions Implemented as Appropriate) 11/07/14347 Skin Integrity Impairment, Risk/Actual (Adult, Obstetrics) Skin Integrity/Wound Healing making progress toward outcome Problem: Fall/Trauma/Injury Risk (Adult, Obstetrics) Intervention: Muscle Strengthening 11/07/14347 Musculoskeletal Interventions Muscle Strengthening activity/mobility promoted;mobility in bed promoted;personal routines for BADL/IADL promoted Intervention: Self-Care Promotion 11/07/14347 Musculoskeletal Interventions Self-Care Promotion assistance provided to decrease frustration;dressing assistance provided;independence encouraged while providing assistance;hygiene assistance provided;personal routines for BADL/IADL promoted;personal/BADL objects within reach;toileting offered Intervention: Reality Orientation 11/07/14347 Cognitive/Perceptual/Neuro Interventions Reality Orientation daily routine promoted;emotional support provided;environmental consistency promoted Intervention: Sensory Stimulation Regulation 11/07/14347 Cognitive/Perceptual/Neuro Interventions Sensory Stimulation Regulation auditory stimulation minimized;calming techniques promoted;care clustered;lighting decreased;quiet environment promoted;reality orientation provided;relaxation techniquespromoted;sleep/wake cycle promoted;social interaction promoted Intervention: Sensation Impairment Protection 11/07/14347 Peripheral Neurovascular Interventions Sensation Impairment Protection environment clear of obstacles/tripping hazards;external pressure sources minimized;normothermia maintained;provided cautionary cues;skin surveillance Intervention: Visual Performance Enhancement 11/07/14347 HEENT Interventions Visual Performance Enhancement lighting provided/adjusted;consistent room organization maintained;verbal cueing provided Goal: Identify Signs and Symptoms and Related Risk Factors Signs and symptoms and related risk factors are identified upon initiation of Human Response Clinical Practice Guideline (CPG) Outcome: Ongoing (Interventions Implemented as Appropriate) 11/07/14347 Fall/Trauma/Injury Risk Personal Related Risk Factors (Fall/Trauma/Injury Risk) emotional state;fatigue/slowed reaction time;gait/mobility problems/weakness;history of falls;sleep disturbance;substance abuse Environmental Related Risk Factors (Fall/Trauma/Injury Risk) environment unfamiliar Physiological Related Risk Factors (Fall/Trauma/Injury Risk) musculoskeletal alterations;pain Treatment Related Related Risk Factors (Fall/Trauma/Injury Risk) invasive/noninvasive equipment;medication;bed rest Signs and Symptoms (Fall/Trauma/Injury Risk) decreased knowledge of safety/environmental hazards;nonalliance with safety precautions;presence of risk factors Goal: Absence of Trauma/Injury/Falls Patient will demonstrate the desired outcomes. Outcome: Ongoing (Interventions Implemented as Appropriate) 11/07/14 0348 Fall/Trauma/Injury Risk (Adult, Obstetrics) Absence of Trauma/Injury/Falls making progress toward outcome Consult Note - Juancho Mcgee MD - 11/06/2014 8:03 PM EDT NEUROSURGERY CONSULT H&P CC: IPH HPI: Asked by Dr Pena to see Derrick Hobson, a 59 y.o. male for evaluation of IPH. Patient is a 59 year old male with a history of heavy drinking who fell down the stairs 2 days ago. +LOC. He was drunk at the time. He woke up and continued to drink without seeking medical attention. 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 He went to OSH, scans revealed a possible IPH and a R 6th rib Fx. He was transferred here for further management PMH - HTN No past surgical history on file. No family history on file. History Social History ??? Marital Status: Single Spouse Name: N/A Number of Children: N/A ??? Years of Education: N/A Social History Main Topics ??? Smoking status: Not on file ??? Smokeless tobacco: Not on file ??? Alcohol Use: Not on file ??? Drug Use: Not on file ??? Sexual Activity: Not on file Other Topics Concern ??? Not on file Social History Narrative ??? No narrative on file No current facility-administered medications on file prior to encounter. No current outpatient prescriptions on file prior to encounter. Allergies not on file ROS:Unable to obtain, patient became agitated PE: Temp: -- Heart Rate: -- Resp: -- BP: ()/() SpO2: -- General: Awake, alert, lying in bed HEENT: Neck tender, C collar in place Neuro: Mental Status/Cognitive: Alert. Oriented x3. 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 Linear area of hyperdensity in the posterior lateral right frontal lobe. Differential for this appearance could include a large developmental venous anomaly versus a small parenchymal, unusually-shaped, hemorrhage. MR could distinguish between these two if clinically indicated. 2. No cervical, thoracic, or lumbar spine fracture. Recent Results (from the past 24 hour(s)) Prothrombin Time Result Value Ref Range PT 13.2 12.0 - 15.0 sec INR 1.0 0.9 - 1.1 APTT Result Value Ref Range PTT 29 25 - 35 sec Ethanol Level Result Value Ref Range Ethanol Lvl 1313 mg/L Hemogram Result Value Ref Range WBC 10.1 (H) 4.0 - 10.0 x10(3)/mcL RBC 4.72 4.63 - 6.08 x10(6)/mcL Hemoglobin 16.4 13.7 - 17.5 gm/dL Hematocrit 45.9 40.0 - 51.0 % MCV 97.2 (H) 79.0 - 92.0 fL MCH 34.7 (H) 25.6 - 32.2 pg MCHC 35.7 32.0 - 36.5 gm/dL Platelets 223 145 - 370 x10(3)/mcL RDWSD 43.8 35.0 - 46.0 fL RDWCV 12.3 10.9 - 14.4 % MPV 10.1 9.0 - 12.0 fL Differential, Automated Result Value Ref Range Neutrophils % 62.7 % Neutr Abs (ANC) 6.31 (H) 1.50 - 6.30 x10(3)/mcL Lymphocytes % 27.7 % Lymphocytes Abs 2.8 1.0 - 3.6 x10(3)/mcL Monocytes % 7.8 % Monocyte Abs 0.8 0.2 - 1.0 x10(3)/mcL Eosinophils % 1.0 % Eosinophils Abs 0.1 0.0 - 0.5 x10(3)/mcL Basophils % 0.5 % Basophils Abs 0.0 0.0 - 0.2 x10(3)/mcL Immature Gran % 0.30 % Anette Gran Abs 0.03 0.00 - 0.05 x10(3)/mcL Gold Tube HOLD Result Value Ref Range Gold Hold Sample in lab. L-Lactate2 Whole Blood Result Value Ref Range Lactate WB 2.4 (H) mmol/L A/P: 59 y.o. male s/p fall 2 days ago with LOC now presenting with possible IPH. The density in the right frontal lobe is oddly shaped for an IPH and could represent a developmental venous anomaly. Patient is neurologically intact. No spine fractures identified. - close neuro monitoring, Q2 neuro checks - Hold anticoagulation - SBP <160 - No need for repeat scan unless neurologic deterioration - Further care per trauma Associated attestation - Jerson Miller MD - 11/07/2014 9:54 AM EDT I have seen and examined the patient, providing lord components as outlined below. I have reviewed the resident???s above note; my evaluation of the patient is below: I agree with the findings of Dr. Mcgee. Derrick presents with head trauma and possible right parietal cerebral hemorrhage. CT scan looks odd for this diagnosis. He states he has had headaches for a while. I recommend MRI brain with and without contrast to evaluate for another etiology for this imaging abnormality. No surgical intervention needed at this time. 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 XR FINGER MINIMUM 2 Routine 11/16/2014 2:38 PM Re sults for this VIEWS EDT procedure are i n the results section. XR WRIST 2 VIEW Routine 11/16/2014 2:37 PM Result s for this EDT procedure are i n the results section. EKG 12-LEAD Routine 11/12/2014 10:51 T wave inversion in Resu lts for this AM EDT EKG procedure are i n the results section. CARDIAC ENZYMES Routine 11/12/2014 3:48 AM Result s for this ([facility] [place] [facility]) EDT procedure are i n the results section. CARDIAC ENZYMES Routine 11/11/2014 3:58 PM Result s for this ([facility]) EDT procedure are i n the results section. CARDIAC ENZYMES Routine 11/11/2014 9:27 AM Result s for this ([facility]) EDT procedure are i n the results section. EKG 12-LEAD STAT 11/11/2014 6:13 AM Trauma Results f or this EDT procedure are i n the results section. BASIC METABOLIC PANEL Routine 11/11/2014 3:49 AM Results for this (NON-FASTING) EDT procedure are in the results section. DUPLEX FOR DVT BILAT Routine 11/10/2014 12:39 Res ults for this LEGS PM EDT procedure are i n the results section. MRI BRAIN WWO Routine 11/08/2014 12:45 Results fo r this CONTRAST (GENERIC) PM EDT procedure are in the results section. HEPATIC FUNCTION Routine 11/08/2014 3:38 AM Resul ts for this PANEL EDT procedure are i n the results section. EKG 12-LEAD STAT 11/07/2014 10:02 ST segment Results for this AM EDT depression procedure are i n the results section. RAPID DRUG SCREEN W/O STAT 11/07/2014 8:45 AM Results for this CONFIRMATION, URINE EDT procedur e are in the results section. URINALYSIS WITH Routine 11/07/2014 8:45 AM Result s for this REFLEX CULTURE EDT procedure are in the results section. LACTATE, WHOLE BLOOD, STAT 11/07/2014 6:49 AM Results for this SEND TO LAB EDT procedure are i n ([facility] the results section. HEMOGRAM STAT 11/07/2014 3:55 AM Results f or this EDT procedure are i n the results section. DIFFERENTIAL, STAT 11/07/2014 3:55 AM Results for this AUTOMATED EDT procedure are i n the results section. CBC (WITH DIFF) STAT 11/07/2014 3:55 AM EDT ETHANOL LEVEL Routine 11/07/2014 3:55 AM Results for this EDT procedure are i n the results section. BASIC METABOLIC PANEL STAT 11/07/2014 3:55 AM Results for this (NON-FASTING) EDT procedure are in the results section. REQUEST FOR 2ND READ Routine 11/06/2014 8:25 PM R esults for this CT SPINE EDT procedure are i n the results section. REQUEST FOR 2ND READ Routine 11/06/2014 8:18 PM R esults for this CT CHEST ABDOMEN EDT procedure a re in PELVIS the results section. ABO/RH TYPING STAT 11/06/2014 7:37 PM Results for this EDT procedure are i n the results section. ANTIBODY SCREEN STAT 11/06/2014 7:37 PM Result s for this EDT procedure are i n the results section. TYPE AND SCREEN STAT 11/06/2014 7:37 PM ([facility] EDT L-LACTATE2 WHOLE Routine 11/06/2014 7:32 PM Resul ts for this BLOOD EDT procedure are i n the results section. XR CHEST AP AND STAT 11/06/2014 7:31 PM Result s for this PELVIS AP TRAUMA EDT procedure a re in the results section. HEMOGRAM STAT 11/06/2014 7:30 PM Results f or this EDT procedure are i n the results section. DIFFERENTIAL, STAT 11/06/2014 7:30 PM Results for this AUTOMATED EDT procedure are i n the results section. GOLD TUBE HOLD STAT 11/06/2014 7:30 PM Results for this EDT procedure are i n the results section. APTT STAT 11/06/2014 7:30 PM Results f or this EDT procedure are i n the results section. PROTHROMBIN TIME STAT 11/06/2014 7:30 PM Resul ts for this EDT procedure are i n the results section. CBC (WITH DIFF) STAT 11/06/2014 7:30 PM EDT ETHANOL LEVEL STAT 11/06/2014 7:30 PM Results for this EDT procedure are i n the results section. BASIC METABOLIC PANEL STAT 11/06/2014 7:30 PM Results for this (NON-FASTING) EDT procedure are in the results section. documented in this encounter [...] intracranial hemorrhage. 2. 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 Recommend comparison with out side head imaging if available. I have personally reviewed the image(s) and the residents interpretation and agree with the findings, Nadiya Smalls at 12/23/2014 11:39 AM Dorian Pena MD IMG CT ORDERABLES XR Hand Diagnostic Minimum 3 Views (12/16/2014 [...] distance to the fracture fragment has decreased. Dorian Pena MD IMG DX ORDERABLES XR Chest Routine PA & Lateral (12/16/2014 1:42 PM EDT) Anatomical Region Laterality Modality Chest N/A Digital Radiography Specimen (Source) Anatomical Location Collection Method / Collectio n Time Received Time / Laterality Volume Impressions 12/16/2014 2:07 PM EDT IMPRESSION: Interval resolution of right pleural eff usion, and improved aeration of the lungs. I have personally reviewed the image(s) and the residents interpretation and agree with the findings, Juan caraballo 12/16/2014 2:07 PM Narrative 12/16/2014 2:07 PM EDT EXAMINATION: XR CHEST ROUTINE PA AND LATERAL CLINICAL HISTORY: s/p fall down stairs, s/p R rib fx, s/p R pleural effusion, evaluate pulmonary process TECHNIQUE: PA and lateral chest radiogra ph COMPARISON: Chest radiograph and chest C T dated November 06, 2014 FINDINGS: There has been interval resolution of th e right pleural effusion. Improved aeration of the lungs bilaterally. A sub centimeter rounded opacity is seen in the right lower lung, unchanged from and corresponding to a calcified granuloma better characterized on CT dated 5. The lungs are otherwise clear. The cardiomediastinal silhouette, ayush and p ulmonary vasculature are within normal limits. There is no pneumothorax or pleu ral effusion. No interval osseous change. Procedure Note Juan Jones MD - 12/16/2014Formatt ing of this note might be different from the original. EXAMINATION: XR CHEST ROUTINE PA AND LAT ERAL CLINICAL HISTORY: s/p fall down stairs, s/p R rib fx, s/p R pleural effusion, evaluate pulmonary process TECHNIQUE: PA and lateral chest radiogra ph COMPARISON: Chest radiograph and chest C T dated November 06, 2014 FINDINGS: There has been interval resolution of th e right pleural effusion. Improved aeration of the lungs bilaterally. A sub centimeter rounded opacity is seen in the right lower lung, unchanged from and corresponding to a calcified granuloma better characterized on CT dated 5. The lungs are otherwise clear. The cardiomediastinal silhouette, ayush and p ulmonary vasculature are within normal limits. There is no pneumothorax or pleu ral effusion. No interval osseous change. IMPRESSION IMPRESSION: Interval resolution of right pleural eff usion, and improved aeration of the lungs. I have personally reviewed the image(s) and the residents interpretation and agree with the findings, Juan caraballo 12/16/2014 2:07 PM Dorian Pena MD IMG DX ORDERABLES SCAN DOC: EXTRA GANG SUPERVISOR (11/20/2014 12:00 AM EDT) Narrative This result has an attachment that is no t available. Scanning Provider MEDIA MGR SCAN EXT ORDR/RSLT Duplex Study for DVT, Bilat legs (11/17/2014 7:21 AM EDT) Component Value Ref Test Analysis Performed At [facility] Range Method Time Signature VB Text VASCUBASE Report Department: Vascular Surgery Lab Patient: [id number] (DERRICK HOBSON) CPT Code: 57503 ICD-9: 959.8; 793.0; 807.00 Referring Physician: DORIAN PENA Indication: ??s/p fall down stairs, abno rmal brain CT and rib fracture, unable to anticoagulate, ? DVT ICD9 Diagnosis Code: 959.8 RIGHT: Patent common femoral vein and popliteal vein with sp ontaneous, respirophasic Doppler wavefo radha that respond normally to augmentation maneuvers. The common femoral vein, sap henofemoral junction, femoral vein through the thigh and popliteal vein are fully compressible. Patent posterior tibial and peroneal veins with no evidence of thrombus. LEFT: Patent common femoral vein and popliteal vein with spo ntaneous, respirophasic Doppler wavefo radha that respond normally to augmentation maneuvers. The common femoral vein, sap henofemoral junction, femoral vein through the thigh and popliteal vein are fully compressible. Patent posterior tibial and peroneal veins with no evidence of thrombus. Interpretation: RIGHT: No evidence of lower extremity deep venous thro mbosis. No significant change compared to previous exam done on 11/10/2014. LEFT: No evidence of lower extremity deep venous thrombosi s. No significant change compared to previous exam on 11/10/2014. Electronically Signed by: MAY ROMERO on 2014-11-22 05:53: 24 PM VB Text End of Report VASCUBASE Report Specimen (Source) Anatomical Collection Method Collection Time Re ceived Time Location / / Volume Laterality 11/17/2014 7:21 AM EDT Dorian Pena MD VASCULAR ORDERABLES Performing Organization Address City/State/ZIP Code Phon e Number VASCUBASE (ABNORMAL) XR Finger Minimum 2 Views (11/16/2014 2:38 PM EDT) Anatomical Region Laterality Modality Hand N/A Radiographic Imaging Specimen (Source) Anatomical Collection Method Collection Time Re ceived Time Location / / Volume Laterality 11/16/2014 2:38 PM EDT Impressions 11/16/2014 3:39 PM EDT IMPRESSION: 1. Intra-articular small finger DIP join t fracture with mild displacement. 2. Unexpected finding: There is transver se sclerosis of the distal radius and irregularities of the distal ulna, most consistent with distal ulna and radius fractures. 3. Irregularities which appear chronic o f the phalanges, most conspicuous of the proximal phalanx of the ring finger. Thi s could represent chronic posttraumatic change, osteochondroma, or other etiolog y. Narrative 11/16/2014 3:39 PM EDT EXAMINATION: FINGER MIN 2 VIEWS/LEFT CLINICAL HISTORY: Left first digit with pain and swelling, ? fx TECHNIQUE: A frontal view of the left mcnair nd, oblique and lateral views of the left small finger. COMPARISON: Left wrist of 11/16/2014. FINDINGS: Soft tissue swelling is identified. Ther e is an intra-articular fracture of the DIP joint of the small finger. There is mild displacement of fracture fragments and mild foreshortening. There is joint space loss. Scattered degenerative, and likely remot e posttraumatic change of the phalanges, most notable proximal phalanx of the rin g finger. Sclerosis and irregularities are noted of the distal metadiaphysis of the radius. Irregularities are noted of the distal ulna with overlying soft tiss ue swelling, partially characterized. Resulting Agency Comment Unexpected Finding Procedure Note Tres English MD - 11/16/2014Format ting of this note might be different from the original. EXAMINATION: FINGER MIN 2 VIEWS/LEFT CLINICAL HISTORY: Left first digit with pain and swelling, ? fx TECHNIQUE: A frontal view of the left mcnair nd, oblique and lateral views of the left small finger. COMPARISON: Left wrist of 11/16/2014. FINDINGS: Soft tissue swelling is identified. Ther e is an intra-articular fracture of the DIP joint of the small finger. There is mild displacement of fracture fragments and mild foreshortening. There is joint space loss. Scattered degenerative, and likely remot e posttraumatic change of the phalanges, most notable proximal phalanx of the rin g finger. Sclerosis and irregularities are noted of the distal metadiaphysis of the radius. Irregularities are noted of the distal ulna with overlying soft tiss ue swelling, partially characterized. IMPRESSION IMPRESSION: 1. Intra-articular small finger DIP join t fracture with mild displacement. 2. Unexpected finding: There is transver se sclerosis of the distal radius and irregularities of the distal ulna, most consistent with distal ulna and radius fractures. 3. Irregularities which appear chronic o f the phalanges, most conspicuous of the proximal phalanx of the ring finger. Thi s could represent chronic posttraumatic change, osteochondroma, or other etiolog y. Dorian Pena MD IMG DX ORDERABLES XR wrist 2 view (11/16/2014 2:37 PM EDT) Anatomical Region Laterality Modality Hand, Wrist N/A Radiographic Imaging Specimen (Source) Anatomical Collection Method Collection Time Re ceived Time Location / / Volume Laterality 11/16/2014 2:37 PM EDT Impressions 11/16/2014 3:41 PM EDT IMPRESSION: 1. Distal radius fracture, with compacti on, and transverse orientation. 2. Irregularities of the ulnar styloid, likely representing fracture with overlying soft tissue swelling. 3. Subtle lucencies of the scaphoid, nor mal nutrient vasculature versus nondisplaced fracture. Narrative 11/16/2014 3:41 PM EDT EXAMINATION: WRIST 2 VIEWS/LEFT CLINICAL HISTORY: s/p fall in bathroom, pain in wrist with ROM and swelling TECHNIQUE: Frontal, oblique, lateral, an d scaphoid specific views of the left wrist. COMPARISON: Left small finger views obta ined of the same day. FINDINGS: There is transverse sclerosis and irregu larities with malalignment of the distal radius metadiaphysis, consistent with a compacted metadiaphyseal fracture. There is additional irregularity of the ulnar styloid process likely representing additional fracture with overlying soft tissue swelling. Subtle lucencies within the scaphoid may represent nutrient vasc ulature versus nondisplaced fracture. Procedure Note Tres English MD - 11/16/2014Format ting of this note might be different from the original. EXAMINATION: WRIST 2 VIEWS/LEFT CLINICAL HISTORY: s/p fall in bathroom, pain in wrist with ROM and swelling TECHNIQUE: Frontal, oblique, lateral, an d scaphoid specific views of the left wrist. COMPARISON: Left small finger views obta ined of the same day. FINDINGS: There is transverse sclerosis and irregu larities with malalignment of the distal radius metadiaphysis, consistent with a compacted metadiaphyseal fracture. There is additional irregularity of the ulnar styloid process likely representing additional fracture with overlying soft tissue swelling. Subtle lucencies within the scaphoid may represent nutrient vasc ulature versus nondisplaced fracture. IMPRESSION IMPRESSION: 1. Distal radius fracture, with compacti on, and transverse orientation. 2. Irregularities of the ulnar styloid, likely representing fracture with overlying soft tissue swelling. 3. Subtle lucencies of the scaphoid, nor mal nutrient vasculature versus nondisplaced fracture. Dorian Pena MD IMG DX ORDERABLES EKG 12 Lead (11/12/2014 10:51 AM EDT) Component Value Ref Range Test Analysis Performed Pathologis t Method Time At Signature Ventricular rate 58 BPM MUSE SYSTEM Atrial Rate 58 BPM MUSE SYSTEM P-R Interval 174 ms MUSE SYSTEM QRS Duration 110 ms MUSE SYSTEM Q-T Interval 440 ms MUSE SYSTEM QTC Calculated 431 ms MUSE SYSTEM (Bezet) Calculated P Tyler 44 degrees MUSE SYSTEM Calculated R Tyler 19 degrees MUSE SYSTEM Calculated T Tyler 43 degrees MUSE SYSTEM INTERPRETATION Sinus bradycardia MUSE SY STEM Nonspecific T wave abnormality Abnormal ECG When compared with ECG of 11-NOV-2014 06:13, T wave inversion no longer evident in Anterolateral leads Confirmed by Edwardo Clement ([id number]) on 11/12/2014 7:05:55 PM Specimen Anatomical Collection Method Collection Time Receive d Time (Source) Location / / Volume Laterality 11/12/2014 10:51 11/12/2014 7:05 AM EDT PM EDT Dorian Pena MD ECG ORDERABLES Performing Organization Address City/State/ZIP Code Phon e Number MUSE SYSTEM (ABNORMAL) Cardiac Enzymes (11/12/2014 3:48 AM EDT) P athologist Signature Troponin-T <0.03 <=0.03 CERNER ng/mL [facility] Comment: 0.03 ng/mL: Represents the 99th percenti le upper reference limit for normals. >0.03 ng/mL: Elevated cardiac troponin T level indicative of myocardial damage. Diagnosis of acute, evolving or recent M I requires a typical rise and gradual fall of cTnT with at least ONE of the fo llowing: a) Ischemic symptoms b) Development of pathologic Q waves on the ECG c) ECG changes indicative of eschemia (S -T segment elevation/depression) d) Coronary artery intervention Serial bloods should be obtained for orquidea ting on admission, at 6 to 9 hrs and again at 12 to 24 hrs if earlier samples are negative and the clinical index of suspicion is high. Reference: [Myocardial infarction redefined? a consensus document of the Joint Society of Cardiology/[place] [employer] Committee for the redefinition of myocardial infarction. ? ?Journal of the [place] [employer] 2000; 36: 959-969] CK, Total 293 (H) 0 - 200 unit/L [facility] Specimen Anatomical Collection Method Collection Time Receive d Time (Source) Location / / Volume Laterality Blood specimen 11/12/2014 3:48 AM 015 4:19 (specimen) EDT AM EDT Resulting Agency Comment Spec In Lab Dorian Pena MD CHEMISTRY ORDERABLES Performing Organization Address [facility] [place] [address] CERNER MILLENNIUM (ABNORMAL) Cardiac Enzymes (11/11/2014 3:58 PM EDT) P athologist Signature Troponin-T <0.03 <=0.03 CERNER ng/mL [facility] Comment: 0.03 ng/mL: Represents the 99th percenti le upper reference limit for normals. >0.03 ng/mL: Elevated cardiac troponin T level indicative of myocardial damage. Diagnosis of acute, evolving or recent M I requires a typical rise and gradual fall of cTnT with at least ONE of the fo llowing: a) Ischemic symptoms b) Development of pathologic Q waves on the ECG c) ECG changes indicative of eschemia (S -T segment elevation/depression) d) Coronary artery intervention Serial bloods should be obtained for orquidea ting on admission, at 6 to 9 hrs and again at 12 to 24 hrs if earlier samples are negative and the clinical index of suspicion is high. Reference: [Myocardial infarction redefined? a consensus document of the Joint Society of Cardiology/[place] [employer] o f [employer] Committee for the redefinition of myocardial infarction. ? ?Journal of the [place] [employer] 2000; 36: 959-969] CK, Total 390 (H) 0 - 200 unit/L [facility] [employer] [facility] Specimen Anatomical Collection Method Collection Time Receive d Time (Source) Location / / Volume Laterality Blood specimen 11/11/2014 3:58 PM 015 4:02 (specimen) EDT PM EDT Resulting Agency Comment Spec In Lab Dorian Pena MD CHEMISTRY ORDERABLES Performing Organization Address City/[facility] [place] [address] CERNER Conversion Logic (ABNORMAL) Cardiac Enzymes (11/11/2014 9:27 AM EDT) P athologist Signature Troponin-T <0.03 <=0.03 [facility] ng/mL [employer] Comment: 0.03 ng/mL: Represents the 99th percenti le upper reference limit for normals. >0.03 ng/mL: Elevated cardiac troponin T level indicative of myocardial damage. Diagnosis of acute, evolving or recent M I requires a typical rise and gradual fall of cTnT with at least ONE of the fo llowing: a) Ischemic symptoms b) Development of pathologic Q waves on the ECG c) ECG changes indicative of eschemia (S -T segment elevation/depression) d) Coronary artery intervention Serial bloods should be obtained for orquidea ting on admission, at 6 to 9 hrs and again at 12 to 24 hrs if earlier samples are negative and the clinical index of suspicion is high. Reference: [Myocardial infarction redefined? a consensus document of the Joint Society of Cardiology/[place] [employer] o f [employer] Committee for the redefinition of myocardial infarction. ? ?Journal of the [place] [employer]iology 2000; 36: 959-969] CK, Total 413 (H) 0 - 200 unit/L [facility] Specimen Anatomical Collection Method Collection Time Receive d Time (Source) Location / / Volume Laterality Blood specimen 11/11/2014 9:27 AM 015 9:41 (specimen) EDT AM EDT Resulting Agency Comment Spec In Lab Dorian Pena MD CHEMISTRY ORDERABLES Performing Organization Address City/State/[place] [address] [employer] EKG 12 Lead (11/11/2014 6:13 AM EDT) Component Value Ref Range Test Analysis Performed Pathologis t Method Time At Signature Ventricular rate 60 BPM MUSE SYSTEM Atrial Rate 60 BPM MUSE SYSTEM P-R Interval 138 ms MUSE SYSTEM QRS Duration 104 ms MUSE SYSTEM Q-T Interval 430 ms MUSE SYSTEM QTC Calculated 430 ms MUSE SYSTEM (Bezet) Calculated P Tyler 39 degrees MUSE SYSTEM Calculated R Tyler 28 degrees MUSE SYSTEM Calculated T Tyler -89 degrees MUSE SYSTEM INTERPRETATION Normal sinus rhythm MUSE SYSTEM T wave abnormality, consider inferior ischemia T wave abnormality, consider anterolateral ischemia Abnormal ECG When compared with ECG of 07-NOV-2014 10:02, T wave inversion now evident in Inferior leads T wave inversion now evident in Anterior leads QT has shortened Confirmed by MD PHYLLIS, KARYN ([id number]) on 11/11/2014 8:37:36 A M Specimen Anatomical Collection Method Collection Time Receive d Time (Source) Location / / Volume Laterality 11/11/2014 6:13 AM 5 8:37 EDT AM EDT Dorian Pena MD ECG ORDERABLES Performing Organization Address City/State/ZIP Code Phon e Number MUSE SYSTEM (ABNORMAL) Basic Metabolic Panel (non-fasting) (11/11/2014 3:49 AM EDT) P athologist Signature Glucose Lvl 95 65 - 199 CERNER mg/dL [facility] Comment: Diabetes: >=200 mg/dL plus symp toms BUN 11 10 - 20 mg/dL CERNER MILLENNIU M Creatinine 0.79 (L) 0.80 - 1.50 mg/dL CERNER MILL ENNIUM Comment: Please note that the pediatric reference intervals supplied above were not validated at [facility]. Results from pediatri c patients should be interpreted in conjunction to the patient's age, height and muscle mass. Sodium 137 135 - 145 mmol/L CERNER DWIGHT NIUM Potassium 3.7 3.5 - 5.0 mmol/L CERNER DWIGHT NIUM Comment: Please note: ??Patients with WBC >100,00 0 may have falsely elevated Potassium levels. ??For accurate Potassium quantif ication in these patients send serum separator tube (gold top) for subsequent determinations. ??Contact the Clinical Chemistry Laboratory if there are any qu estions. Chloride 96 (L) 98 - 107 mmol/L CERNER MILLENN IUM CO2 28 22 - 31 mmol/L CERNER MILLENNI UM Anion Gap 13 5 - 15 mmol/L CERNER MILLENNIU M Calcium 9.3 8.5 - 10.5 mg/dL CERNER DWIGHT NIUM Estimated GFR >60 >=60 CERNER MILLENNIU M Comment: This estimated GFR (eGFR) value was calc ulated using the MDRD equation which has been validated on patients between t he ages of 18 and 70. The MDRD should not be used to assess kidney function in patients < 18 years of age or in patients with extremes of body mass, or in patients with acute kidney failure. This value should be multiplied by 1.2 f or patients. For further information please copy and past e the following links into your internet browser. [email or web address] Specimen Anatomical Collection Method Collection Time Receive d Time (Source) Location / / Volume Laterality Blood specimen 11/11/2014 3:49 AM 015 4:19 (specimen) EDT AM EDT Resulting Agency Comment Spec In Lab Dorian Pena MD CHEMISTRY ORDERABLES Performing Organization Address City/State/ZIP Code Phon e Number [place] [phone] [facility] Source MDxIUM Duplex Study for DVT, Bilat legs (11/10/2014 12:39 PM EDT) Component Value Ref Test Analysis Performed At [facility] gist Range Method Time Signature VB Text VASCUBASE Report Department: Vascular Surgery Lab Patient: [id number] (DERRICK HOBSON) CPT Code: 24422 ICD-9: 432.9; 959.8 Referring Physician: DORIAN PENA Indication: ??59 year old ma le s/p fall down stairs with confusion and suspected IPH vs. DVA vs. mass on RIGHT frontal lobe, prolonged bedres t, ? DVT ICD9 Diagnosis Code: 959.8, 432.9 RIGHT: Patent common femoral vein and popliteal vein with sp ontaneous, respirophasic Doppler wavefo radha that respond normally to augmentation maneuvers. The common femoral vein, sap henofemoral junction, femoral vein through the thigh and popliteal vein are fully compressible. Patent posterior tibial and peroneal veins with no evidence of thrombus. LEFT: Patent common femoral vein and popliteal vein with spo ntaneous, respirophasic Doppler wavefo radha that respond normally to augmentation maneuvers. The common femoral vein, sap henofemoral junction, femoral vein through the thigh and popliteal vein are fully compressible. Patent posterior tibial and peroneal veins with no evidence of thrombus. Interpretation: RIGHT: ??No evidence of lower extremity deep venous thrombos is. LEFT: ??No evidence of lower extremity deep venous thrombosi s. Comparison: ??No previous study in our vascular lab da tabase for comparison. Electronically Signed by: ESTRADA ARELLANO on 2014-11-13 09:23 :07 AM VB Text End of Report [email or web address] Report Specimen (Source) Anatomical Collection Method Collection Time Re ceived Time Location / / Volume Laterality 11/10/2014 12:39 PM EDT Dorian Pena MD VASCULAR ORDERABLES Performing Organization Address City/State/ZIP Code Phon e Number [email or web address] MRI Brain With/WO Contrast (11/08/2014 12:45 PM EDT) Anatomical Region Laterality Modality Head Magnetic Resonance Specimen (Source) Anatomical Collection Method Collection Time Re ceived Time Location / / Volume Laterality 11/08/2014 12:45 PM EDT Impressions 11/08/2014 1:00 PM EDT IMPRESSION: Incomplete exam as the patient was unabl e to tolerate the study. There does not appear to be flow in the lesion on T1-we ighted images which are use for the presence of blood products rather than a venous anomaly. Narrative 11/08/2014 1:00 PM EDT EXAMINATION: MR BRAIN W/WO CONTRAST CLINICAL HISTORY: BRAIN W/WO CONTRAST, ? DVA TECHNIQUE: MR the brain performed withou t the use of intravenous contrast. Exam was unable to be completed as patient co uld not tolerate further scanning. COMPARISON: CT 11/06/2014 FINDINGS: The linear area of hypodensity seen on the prior CT corresponds to a hypointense area on FLAIR and diffusion images. No clear flow void is seen in this area on T1-weighted images, and the re appears to be mixed signal intensity on T1. There is minimal if any surroundi ng edema. Patchy areas of T2 prolongation are present throughout the white matter most relaxers, a nonspecific finding typically attributed to small vessel ischemic change. There is no evidence of infarct on diffusion-w eighted images. Procedure Note Chino Parham MD - 11/08/2014Format ting of this note might be different from the original. EXAMINATION: MR BRAIN W/WO CONTRAST CLINICAL HISTORY: BRAIN W/WO CONTRAST, ? DVA TECHNIQUE: MR the brain performed withou t the use of intravenous contrast. Exam was unable to be completed as patient co uld not tolerate further scanning. COMPARISON: CT 11/06/2014 FINDINGS: The linear area of hypodensity seen on the prior CT corresponds to a hypointense area on FLAIR and diffusion images. No clear flow void is seen in this area on T1-weighted images, and the re appears to be mixed signal intensity on T1. There is minimal if any surroundi ng edema. Patchy areas of T2 prolongation are present throughout the white matter most relaxers, a nonspecific finding typically attributed to small vessel ischemic change. There is no evidence of infarct on diffusion-w eighted images. IMPRESSION IMPRESSION: Incomplete exam as the patient was unabl e to tolerate the study. There does not appear to be flow in the lesion on T1-we ighted images which are use for the presence of blood products rather than a venous anomaly. Dorian Pena MD IMG MRI ORDERABLES Hepatic Function Panel (11/08/2014 3:38 AM EDT) P athologist Signature Total Protein 6.8 6.1 - 8.0 CERNER gm/dL MILLENNIUM Albumin 3.6 3.2 - 5.2 CERNER gm/dL MILLENNIUM AST 28 0 - 39 CERNER unit/L MILLENNIUM ALT 26 0 - 55 CERNER unit/L MILLENNIUM Alk Phos 60 40 - 120 CERNER unit/L MILLENNIUM Total 0.9 0.2 - 1.3 CERNER Bilirubin mg/dL MILLENNIUM Bili, Direct 0.2 0.0 - 0.3 CERNER mg/dL MILLENNIUM Specimen Anatomical Collection Method Collection Time Receive d Time (Source) Location / / Volume Laterality Blood specimen 11/08/2014 3:38 AM 015 4:02 (specimen) EDT AM EDT Resulting Agency Comment Spec In Lab Dorian Pena MD CHEMISTRY ORDERABLES Performing Organization Address City/State/ZIP [place] [address] CERNER MILLENNIUM EKG 12 Lead (11/07/2014 10:02 AM EDT) Component Value Ref Range Test Analysis Performed Pathologis t Method Time At Signature Ventricular rate 85 BPM MUSE SYSTEM Atrial Rate 85 BPM MUSE SYSTEM P-R Interval 160 ms MUSE SYSTEM QRS Duration 104 ms MUSE SYSTEM Q-T Interval 410 ms MUSE SYSTEM QTC Calculated 487 ms MUSE SYSTEM (Bezet) Calculated P Tyler 27 degrees MUSE SYSTEM Calculated R Tyler 3 degrees MUSE SYSTEM Calculated T Tyler 68 degrees MUSE SYSTEM INTERPRETATION Normal sinus rhythm MUSE SYSTEM Nonspecific T wave abnormality Prolonged QT Abnormal ECG No previous ECGs available Confirmed by MD Ha Douglas ([id number]) on 11/07/2014 8:00:21 PM Specimen Anatomical Collection Method Collection Time Receive d Time (Source) Location / / Volume Laterality 11/07/2014 10:02 11/07/2014 8:00 AM EDT PM EDT Dorian Pena MD ECG ORDERABLES Performing Organization Address City/State/ZIP Code Phon e Number MUSE SYSTEM (ABNORMAL) Urinalysis with microscopic (11/07/2014 8:45 AM EDT) [facility] [employer] Method Time Signature Glucose UA 50 (A) Negative CERNER mg/dL MILLENNIUM Protein UA Negative Negative CERNER mg/dL MILLENNIUM Bilirubin UA Negative Negative CERNER mg/dL MILLENNIUM Comment: Clinical correlation required for positi ve Urine Bilirubin results as false positive may occur with some drugs and d rug related products. If a false positive is suspected a serum total bili solano should be considered if clinically indicated. Urobilinogen UA Normal Normal mg/dL CERNER MILL ENNIUM pH UA 7.0 5.0 - 8.0 CERNER MILLENNIUM Blood UA Negative Negative mg/dL CERNER MILLENNI UM Ketones UA Negative Negative mg/dL CERNER MILLENN IUM Nitrite UA Negative Negative CERNER MILLENNIUM Leukocytes UA Negative Negative mcL CERNER DWIGHT NIUM Appearance UA Clear Clear CERNER MILLENNIU M Spec [place] UA 1.011 1.002 - 1.030 CERNER MIL LENNIUM Color UA Straw Yellow CERNER MILLENNIUM RBC UA <1 0 - 3 /HPF CERNER MILLENNIUM WBC UA <1 0 - 3 /HPF CERNER MILLENNIUM Specimen Anatomical Collection Method Collection Time Receive d Time (Source) Location / / Volume Laterality Urine specimen 11/07/2014 8:45 AM 015 8:52 (specimen) EDT AM EDT Resulting Agency Comment Spec In Lab Dorian Pena MD URINE ORDERABLES Performing Organization Address City/State/Z[place] [address] CERNER MILLENNIUM (ABNORMAL) Rapid Drug Screen, Urine (11/07/2014 8:45 AM EDT) [facility] [employer] Method Time Signature CHRISTINE Marijuana None None CERNER Metabolites Scr Detected Detected MILLENNIUM Comment: The marijuana metabolites screen detects the THC Metabolite (23-nom-5-carboxy-? 9-THC) at concentrations >50 ng/mL. Qualitative Drug screens are reported as ? None Detected? or ? Presumptive Positive? as the results are not routinely confirmed by highly-specific methods. As with any screen occasional f alse positive results from cross-reacting substances can occur. Not for Medico-Legal Purposes. CHRISTINE Phencyclidine Scr None Detected None Detected CERNER MILLENNIUM Comment: The phencyclidine screen detects phencyc lidine at concentrations >25 ng/mL. Qualitative Drug screens are reported as ? None Detected? or ? Presumptive Positive? as the results are not routinely confirmed by highly-specific methods. As with any screen occasional f alse positive results from cross-reacting substances can occur. Not for Medico-Legal Purposes. CHRISTINE Cocaine Metabolites Scr None Detected None Detected CERNER MILLENNIUM Comment: The cocaine metabolites screen detects b enzoylecgonine (Cocaine Metabolite) at concentrations >150 ng/mL. Qualitative Drug screens are reported as ? None Detected? or ? Presumptive Positive? as the results are not routinely confirmed by highly-specific methods. As with any screen occasional f alse positive results from cross-reacting substances can occur. Not for Medico-Legal Purposes. CHRISTINE Methamphetamines Scr None Detected None Detected CERNER MILLENNIUM Comment: The methamphetamine screen detects d-met hamphetamine at concentrations >500 ng/mL. Qualitative Drug screens are reported as ? None Detected? or ? Presumptive Positive? as the results are not routinely confirmed by highly-specific methods. As with any screen occasional f alse positive results from cross-reacting substances can occur. Not for Medico-Legal Purposes. CHRISTINE Opiates Scr None Detected None Detected CERNER MILLENNIUM Comment: The opiates screen detects opiates at a concentration >100 ng/mL and oxymorphone >250 ng/mL. Qualitative Drug screens are reported as ? None Detected? or ? Presumptive Positive? as the results are not routinely confirmed by highly-specific methods. As with any screen occasional f alse positive results from cross-reacting substances can occur. Not for Medico-Legal Purposes. CHRISTINE Amphetamines Scr None Detected None Detected C ERNER MILLENNIUM Comment: The amphetamine screen detects d-ampheta mine at concentrations >500 ng/mL. Qualitative Drug screens are reported as ? None Detected? or ? Presumptive Positive? as the results are not routinely confirmed by highly-specific methods. As with any screen occasional f alse positive results from cross-reacting substances can occur. Not for Medico-Legal Purposes. CHRISTINE Benzodiazepines Scr Presumptive Pos (A) None Detected CERNER MILLENNIUM Comment: The benzodiazepines screen detects benzo diazepines at concentrations >150 ng/mL. Not all benzodiazepines cross-fabio ct equally with antibody used in this screen. Due to the low dosage of clonaze demetrius, false negatives may be obtained due to low concentration of clonazepam m etabolites. Qualitative Drug screens are reported as ? None Detected? or ? Presumptive Positive? as the results are not routinely confirmed by highly-specific methods. As with any screen occasional f alse positive results from cross-reacting substances can occur. Not for Medico-Legal Purposes. CHRISTINE Tricyclics Scr None Detected None Detected CER NER MILLENNIUM Comment: The tricyclics screen detects tricyclic antidepressants at concentrations >300 ng/mL. Not all tricyclics cross-react eq ually with the antibody used in this screen. Qualitative Drug screens are reported as ? None Detected? or ? Presumptive Positive? as the results are not routinely confirmed by highly-specific methods. As with any screen occasional f alse positive results from cross-reacting substances can occur. Not for Medico-Legal Purposes. CHRISTINE Methadone Scr None Detected None Detected CERN ER MILLENNIUM Comment: The methadone screen detects methadone a t concentrations >200 ng/mL. Qualitative Drug screens are reported as ? None Detected? or ? Presumptive Positive? as the results are not routinely confirmed by highly-specific methods. As with any screen occasional f alse positive results from cross-reacting substances can occur. Not for Medico-Legal Purposes. CHRISTINE Barbiturates Scr None Detected None Detected C ERNER MILLENNIUM Comment: The barbiturates screen detects barbitur ate at concentrations >200 ng/mL. Note: Not all barbiturates cross-react equally with antibody used in this screen. Qualitative Drug screens are reported as ? None Detected? or ? Presumptive Positive? as the results are not routinely confirmed by highly-specific methods. As with any screen occasional f alse positive results from cross-reacting substances can occur. Not for Medico-Legal Purposes. CHRISTINE Oxycodone Scr Presumptive Pos (A) None Detected CERNER MILLENNIUM Comment: The oxycodone screen detects oxycodone a t concentrations >100 ng/mL and oxymorphone >250 ng/ml. Qualitative Drug screens are reported as ? None Detected? or ? Presumptive Positive? as the results are not routinely confirmed by highly-specific methods. As with any screen occasional f alse positive results from cross-reacting substances can occur. Not for Medico-Legal Purposes. CHRISTINE Propoxyphene Scr None Detected None Detected C ERNER MILLENNIUM Comment: The propoxyphene screen detects propoxyp hene at concentrations >300 ng/mL. Qualitative Drug screens are reported as ? None Detected? or ? Presumptive Positive? as the results are not routinely confirmed by highly-specific methods. As with any screen occasional f alse positive results from cross-reacting substances can occur. Not for Medico-Legal Purposes. CHRISTINE Buprenorphine Scr None Detected None Detected CERNER MILLENNIUM Comment: The buprenorphine screen detects bupreno rphine at concentrations >10 ng/mL. Qualitative Drug screens are reported as ? None Detected? or ? Presumptive Positive? as the results are not routinely confirmed by highly-specific methods. As with any screen occasional f alse positive results from cross-reacting substances can occur. Not for Medico-Legal Purposes. Specimen Anatomical Collection Method Collection Time Receive d Time (Source) Location / / Volume Laterality Urine specimen 11/07/2014 8:45 AM 015 8:52 (specimen) EDT AM EDT Resulting Agency Comment Spec In Lab Dorian Pena MD URINE ORDERABLES Performing Organization Address City/[facility] Phon e Number [place] [phone] CERNER MILLENNIUM Lactate, whole blood, send to lab (11/07/2014 6:49 AM EDT) P athologist Signature Lactate WB 1.7 0.5 - 2.2 CERNER mmol/L MILLENNIUM Specimen Anatomical Collection Method Collection Time Receive d Time (Source) Location / / Volume Laterality Blood specimen 11/07/2014 6:49 AM 015 7:42 (specimen) EDT AM EDT Resulting Agency Comment Spec In Lab Dorian Pena MD CHEMISTRY ORDERABLES Performing Organization Address City/State/[place] [address] CERNER MILLENNIUM (ABNORMAL) Differential, Automated (11/07/2014 3:55 AM EDT) Patholo gist Method Time Signature Neutrophils % 71.3 % CERNER MILLENNIUM Neutr Abs (ANC) 6.60 (H) 1.50 - CERNER 6.30 MILLENNIUM x10(3)/mc L Lymphocytes % 20.1 % CERNER MILLENNIUM Lymphocytes Abs 1.9 1.0 - 3.6 CERNER x10(3)/mc MILLENNIUM L Monocytes % 7.3 % CERNER MILLENNIUM Monocyte Abs 0.7 0.2 - 1.0 CERNER x10(3)/mc MILLENNIUM L Eosinophils % 1.0 % CERNER MILLENNIUM Eosinophils Abs 0.1 0.0 - 0.5 CERNER x10(3)/mc MILLENNIUM L Basophils % 0.2 % CERNER MILLENNIUM Basophils Abs 0.0 0.0 - 0.2 CERNER x10(3)/mc MILLENNIUM L Immature Gran % 0.10 % CERNER MILLENNIUM Comment: Immature granulocytes(IG's)percentage an d absolute count will include metamyelocytes, myelocytes, and promyelo cytes. Blood smears from CBCs yielding IG's will be scanned manually for concor dance. If this scan disagrees with the automated IG or if promyelocytes are not ed, a manual differential will be performed. Anette Gran Abs 0.01 0.00 - 0.05 x10(3)/mcL CER NER MILLENNIUM Specimen Anatomical Collection Method Collection Time Receive d Time (Source) Location / / Volume Laterality Blood specimen 11/07/2014 3:55 AM 015 4:36 (specimen) EDT AM EDT Resulting Agency Comment Spec In Lab Dorian Pena MD HEMATOLOGY ORDERABLES Performing Organization Address City/State/ZIP Code Phon e Number [address] CERNER MILLENNIUM (ABNORMAL) Hemogram (11/07/2014 3:55 AM EDT) P athologist Signature WBC 9.3 4.0 - 10.0 CERNER x10(3)/mcL MILLENNIUM RBC 4.49 (L) 4.63 - CERNER 6.08 MILLENNIUM x10(6)/mcL Hemoglobin 15.1 13.7 - CERNER 17.5 gm/dL MILLENNIUM Hematocrit 44.1 40.0 - CERNER 51.0 % MILLENNIUM MCV 98.2 (H) 79.0 - CERNER 92.0 fL MILLENNIUM MCH 33.6 (H) 25.6 - CERNER 32.2 pg MILLENNIUM MCHC 34.2 32.0 - CERNER 36.5 gm/dL MILLENNIUM Platelets 192 145 - 370 CERNER x10(3)/mcL MILLENNIUM RDWSD 44.3 35.0 - CERNER 46.0 fL MILLENNIUM RDWCV 12.5 10.9 - CERNER 14.4 % MILLENNIUM MPV 10.3 9.0 - 12.0 CERNER fL MILLENNIUM Specimen Anatomical Collection Method Collection Time Receive d Time (Source) Location / / Volume Laterality Blood specimen 11/07/2014 3:55 AM 015 4:36 (specimen) EDT AM EDT Resulting Agency Comment Spec In Lab Dorian Pena MD HEMATOLOGY ORDERABLES Performing Organization Address City/[facility] Code Phon e Number [place] [phone] [facility] Ethanol Level (11/07/2014 3:55 AM EDT) athologist Signature Ethanol Lvl <100 mg/L [facility] Comment: Greater than 800 mg/L (0.08%) should be considered intoxicated. 3400 to 4500 mg/L (0.34 - 0.45%) is cons idered severe intoxication. Greater than 5500 mg/L (0.55%) is usuall y fatal. Specimen Anatomical Collection Method Collection Time Receive d Time (Source) Location / / Volume Laterality Blood specimen 11/07/2014 3:55 AM 015 4:36 (specimen) EDT AM EDT Resulting Agency Comment Spec In Lab Dorian Pena MD CHEMISTRY ORDERABLES Performing Organization Address City/[facility]/ZIP Code Phon [place] [address] CERNER MILLENNIUM (ABNORMAL) Basic Metabolic Panel (non-fasting) (11/07/2014 3:55 AM EDT) P athologist Signature Glucose Lvl 134 65 - 199 CERNER mg/dL MILLENNIUM Comment: Diabetes: >=200 mg/dL plus symp toms BUN 5 (L) 10 - 20 mg/dL CERNER MILLENNIU M Creatinine 0.59 (L) 0.80 - 1.50 mg/dL CERNER MILL ENNIUM Comment: Please note that the pediatric reference intervals supplied above were not validated at [facility]. Results from pediatri c patients should be interpreted in conjunction to the patient's age, height and muscle mass. Sodium 140 135 - 145 mmol/L CERNER DWIGHT NIUM Potassium 3.6 3.5 - 5.0 mmol/L CERNER DWIGHT NIUM Comment: Please note: ??Patients with WBC >100,00 0 may have falsely elevated Potassium levels. ??For accurate Potassium quantif ication in these patients send serum separator tube (gold top) for subsequent determinations. ??Contact the Clinical Chemistry Laboratory if there are any qu estions. Chloride 97 (L) 98 - 107 mmol/L CERNER MILLENN IUM CO2 30 22 - 31 mmol/L CERNER MILLENNI UM Anion Gap 13 5 - 15 mmol/L CERNER MILLENNIU M Calcium 8.5 8.5 - 10.5 mg/dL CERNER DWIGHT NIUM Estimated GFR >60 >=60 CERNER MILLENNIU M Comment: This estimated GFR (eGFR) value was calc ulated using the MDRD equation which has been validated on patients between t he ages of 18 and 70. The MDRD should not be used to assess kidney function in patients < 18 years of age or in patients with extremes of body mass, or in patients with acute kidney failure. This value should be multiplied by 1.2 f or patients. For further information please copy and past e the following links into your internet browser. [email or web address] Specimen Anatomical Collection Method Collection Time Receive d Time (Source) Location / / Volume Laterality Blood specimen 11/07/2014 3:55 AM 015 4:36 (specimen) EDT AM EDT Resulting Agency Comment Spec In Lab Dorian Pena MD CHEMISTRY ORDERABLES Performing Organization Address City/State/ZIP Code Phon [place] [address] [facility] Request For 2nd Read CT Spine (11/06/2014 8:25 PM EDT) Anatomical Region Laterality Modality C-spine, T-spine, L-spine Other Specimen (Source) Anatomical Collection Method Collection Time Re ceived Time Location / / Volume Laterality 11/06/2014 8:25 PM EDT Impressions 11/06/2014 8:59 PM EDT IMPRESSION: 1. Linear area of hyperdensity in the po sterior lateral right frontal lobe. Differential for this appearance could i nclude a large developmental venous anomaly versus a small parenchymal, unus ually-shaped, hemorrhage. MR could distinguish between these two if clinica lly indicated. 2. No cervical, thoracic, or lumbar spin e fracture. Narrative 11/06/2014 8:59 PM EDT EXAMINATION: OUTSIDE CT SPINE, OUTSIDE CT HEAD AND SPINE CLINICAL HISTORY: T/L/S Recon; What Moda lity is the exam? CT Scan; Body Part (please add comments as necessary): T/L/ S Spine; I believe a reinterpretation of this exam may alter care of Patient. Yes TECHNIQUE: CT of the head and cervical s pine performed without the use of intravenous contrast. CT images of the t horacic and lumbar spine reconstructed from separate chest/abdomen/pelvis. No a dditional intravenous contrast administered. COMPARISON: None FINDINGS: CT head: The ventricles are normal in si ze and contour. There is a linear area of hyperdensity in the posterior lateral right frontal lobe with an appearance is unusual for hemorrhage, and this appe ars to extend to the ependymal surface of the ventricle. This may represent a d evelopmental venous anomaly. There are patchy areas of hypoattenuation the whit e matter probably representing small vessel ischemic change. No calvarial fra cture. Cervical spine: There is straightening o f the normal cervical lordosis. There is no acute cervical spine fracture. Extens milind facet arthropathy is present on the left at C2-C3. There are disc degenerati ve changes from C4 through C6 with large anterior osteophytes. 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 Thoracic spine: Images are limited by la ck of small [id number] axial images. Alignment of the thoracic spine appears normal. There is no acute thoracic spine fracture. Lumbar spine: There is retrolisthesis of L5 on S1. Alignment is otherwise preserved. There is loss disc height at L4-L5 and L5-S1. Only 5 mm thick axial slices are available. No acute fracture is identified. Procedure Note Chino Parham MD - 11/06/2014Format ting of this note might be different from the original. EXAMINATION: OUTSIDE CT SPINE, OUTSIDE C T HEAD AND SPINE CLINICAL HISTORY: T/L/S Recon; What Moda lity is the exam? CT Scan; Body Part (please add comments as necessary): T/L/ S Spine; I believe a reinterpretation of this exam may alter care of Patient. Yes TECHNIQUE: CT of the head and cervical s pine performed without the use of intravenous contrast. CT images of the t horacic and lumbar spine reconstructed from separate chest/abdomen/pelvis. No a dditional intravenous contrast administered. COMPARISON: None FINDINGS: CT head: The ventricles are normal in si ze and contour. There is a linear area of hyperdensity in the posterior lateral right frontal lobe with an appearance is unusual for hemorrhage, and this appe ars to extend to the ependymal surface of the ventricle. This may represent a d evelopmental venous anomaly. There are patchy areas of hypoattenuation the whit e matter probably representing small vessel ischemic change. No calvarial fra cture. Cervical spine: There is straightening o f the normal cervical lordosis. There is no acute cervical spine fracture. Extens milind facet arthropathy is present on the left at C2-C3. There are disc degenerati ve changes from C4 through C6 with large anterior osteophytes. 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 Thoracic spine: Images are limited by la ck of small [id number] axial images. Alignment of the thoracic spine appears normal. There is no acute thoracic spine fracture. Lumbar spine: There is retrolisthesis of L5 on S1. Alignment is otherwise preserved. There is loss disc height at L4-L5 and L5-S1. Only 5 mm thick axial slices are available. No acute fracture is identified. IMPRESSION IMPRESSION: 1. Linear area of hyperdensity in the po sterior lateral right frontal lobe. Differential for this appearance could i nclude a large developmental venous anomaly versus a small parenchymal, unus ually-shaped, hemorrhage. MR could distinguish between these two if clinica lly indicated. 2. No cervical, thoracic, or lumbar spin e fracture. Dorian Pena MD IMG OUTSIDE INTERPRETATION O RDERABLES Request For 2nd Read CT Chest Abdomen Pelvis (11/06/2014 8:18 PM EDT) Anatomical Region Laterality Modality Chest, Abdomen, Pelvis Other Specimen (Source) Anatomical Collection Method Collection Time Re ceived Time Location / / Volume Laterality 11/06/2014 8:18 PM EDT Impressions 11/07/2014 8:49 AM EDT IMPRESSION: 1. ??Mildly displaced right sixth zach lateral rib fracture. 2. ??Small right effusion. 3. ??Ectasia of the descending thoracic aorta up to 4 cm with tapering at the level of the aortic arch. No dissection or mediastinal hematoma identified. 4. ??No evidence of acute traumatic inju ry to the abdomen or pelvis. This report was reviewed by DELMY BELLO AM, MD at 11/07/2014 8:44 AM Film and interpretation reviewed by the attending Narrative 11/07/2014 8:49 AM EDT EXAMINATION: OUTSIDE CT CHEST/ABD/PELVIS CLINICAL HISTORY: trauma alert, 2nd read head c-spine chest abd pelvis TLS spine; What Modality is the exam? CT Sca n; Body Part (please add comments as necessary): head; I believe a reinterpre tation of this exam may alter care of Patient. Yes TECHNIQUE: This is a reinterpretation of an outside study originally obtained [facility]. A CT of the chest/ab domen/pelvis was obtained using IV contrast. COMPARISON: None FINDINGS: Chest: There is bibasilar dependent atelectasis . A right-sided small effusion is noted tracking into the major fissure. No pneu mothorax seen. A small right basilar calcified granuloma is present measuring 8 mm in size. No suspicious parenchymal abnormality. Large airways are clear. Sm all amount of right paratracheal air seen on series 2, image 8 likely represe nts a small tracheal diverticulum. Visualized thyroid is unremarkable. There is ectasia of the ascending aorta measuring up to 4 cm, which tapers at the level of the arch. Though somewhat l imited due to contrast bolus timing, however, no dissection flap identified. Periaortic fat is unremarkable. No mediastinal hematoma identified. There i s mild cardiomegaly. No pericardial effusion. There is moderate coronary art aamir calcification present. Collapse of the esophagus precludes assessment. No mediastinal or axillary adenopathy. C alcified small subcarinal lymph nodes noted. There is a minimally displaced anterolat eral right sixth rib fracture. Abdomen/pelvis: No parenchymal lesions identified the li alem. The spleen, pancreas, and adrenals are normal. The gallbladder contains mul tiple cholesterol gallstones without pericholecystic fluid identified. No free intraperitoneal fluid or air. The stomach contains layering fluid. Abiodun pacified small bowel is nondilated. The colon demonstrates a moderate amount of stool seen in the cecum/ascending as well as redundancy of the sigmoid. No in guinal or mesenteric adenopathy. No renal laceration. No hydronephrosis i dentified. The bladder is mildly distended with urine. Prostatic calcific ations are identified. No diastases of the SI joints or pubic s ymphysis. There are multilevel degenerative changes of the spine. Mild retrolisthesis is seen involving L5 and S1. Multilevel degenerative changes of t he spine are identified. No abdominal aortic aneurysm. No retrope ritoneal hematoma. There is atherosclerotic calcification of the abd ominal aorta. Procedure Note Delmy Mckeon MD - 11/07/2014Formatti ng of this note might be different from the original. EXAMINATION: OUTSIDE CT CHEST/ABD/PELVIS CLINICAL HISTORY: trauma alert, 2nd read head c-spine chest abd pelvis TLS spine; What Modality is the exam? CT Sca n; Body Part (please add comments as necessary): head; I believe a reinterpre tation of this exam may alter care of Patient. Yes TECHNIQUE: This is a reinterpretation of an outside study originally obtained [facility]. A CT of the chest/ab domen/pelvis was obtained using IV contrast. COMPARISON: None FINDINGS: Chest: There is bibasilar dependent atelectasis . A right-sided small effusion is noted tracking into the major fissure. No pneu mothorax seen. A small right basilar calcified granuloma is present measuring 8 mm in size. No suspicious parenchymal abnormality. Large airways are clear. Sm all amount of right paratracheal air seen on series 2, image 8 likely represe nts a small tracheal diverticulum. Visualized thyroid is unremarkable. There is ectasia of the ascending aorta measuring up to 4 cm, which tapers at the level of the arch. Though somewhat l imited due to contrast bolus timing, however, no dissection flap identified. Periaortic fat is unremarkable. No mediastinal hematoma identified. There i s mild cardiomegaly. No pericardial effusion. There is moderate coronary art aamir calcification present. Collapse of the esophagus precludes assessment. No mediastinal or axillary adenopathy. C alcified small subcarinal lymph nodes noted. There is a minimally displaced anterolat eral right sixth rib fracture. Abdomen/pelvis: No parenchymal lesions identified the li alem. The spleen, pancreas, and adrenals are normal. The gallbladder contains mul tiple cholesterol gallstones without pericholecystic fluid identified. No free intraperitoneal fluid or air. The stomach contains layering fluid. Abiodun pacified small bowel is nondilated. The colon demonstrates a moderate amount of stool seen in the cecum/ascending as well as redundancy of the sigmoid. No in guinal or mesenteric adenopathy. No renal laceration. No hydronephrosis i dentified. The bladder is mildly distended with urine. Prostatic calcific ations are identified. No diastases of the SI joints or pubic s ymphysis. There are multilevel degenerative changes of the spine. Mild retrolisthesis is seen involving L5 and S1. Multilevel degenerative changes of t he spine are identified. No abdominal aortic aneurysm. No retrope ritoneal hematoma. There is atherosclerotic calcification of the abd ominal aorta. IMPRESSION IMPRESSION: 1. Mildly displaced right sixth anterola teral rib fracture. 2. Small right effusion. 3. Ectasia of the descending thoracic ao rta up to 4 cm with tapering at the level of the aortic arch. No dissection or mediastinal hematoma identified. 4. No evidence of acute traumatic injury to the abdomen or pelvis. This report was reviewed by DELMY BELLO AM, MD at 11/07/2014 8:44 AM Film and interpretation reviewed by the attending Dorian Pena MD IMG OUTSIDE INTERPRETATION O RDERABLES Antibody screen (11/06/2014 7:37 PM EDT) [facility] gist Method Time Signature Ab Screen Negative [facility] Expires at 11/09/2014 [facility] [id number] on: [facility] Specimen Anatomical Collection Method Collection Time Receive d Time (Source) Location / / Volume Laterality Blood specimen 11/06/2014 7:37 PM 015 7:37 (specimen) EDT PM EDT Resulting Agency Comment Spec In Lab Dorian Pena MD BLOOD BANK ORDERABLES Performing Organization Address City/[facility]/ZIP Code Phon e Number [address] [facility] ABO/Rh Typing (11/06/2014 7:37 PM EDT) P athologist Signature ABORh Type A Pos [facility] Specimen Anatomical Collection Method Collection Time Receive d Time (Source) Location / / Volume Laterality Blood specimen 11/06/2014 7:37 PM 015 7:37 (specimen) EDT PM EDT Resulting Agency Comment Spec In Lab Dorian Pena MD BLOOD BANK ORDERABLES Performing Organization Address City/[facility]/ZIP Code Phon e Number [address] [facility] (ABNORMAL) L-Lactate2 Whole Blood (11/06/2014 7:32 PM EDT) P athologist Signature Lactate WB 2.4 (H) mmol/L [facility] Specimen Anatomical Collection Method Collection Time Receive d Time (Source) Location / / Volume Laterality Blood specimen 11/06/2014 7:32 PM 015 7:32 (specimen) EDT PM EDT Emergency Dept CHEMISTRY ORDERABLES Performing Organization Address City/[facility]/[place] [address] [facility] XR chest AP and pelvis AP (11/06/2014 7:31 PM EDT) Anatomical Region Laterality Modality N/A Radiographic Imaging Specimen (Source) Anatomical Collection Method Collection Time Re ceived Time Location / / Volume Laterality 11/06/2014 7:31 PM EDT Narrative 11/06/2014 8:12 PM EDT EXAMINATION: AP CHEST AND AP PELVIS CLINICAL HISTORY: trauma- ICH; Body Part (please add comments as necessary): Chest, Pelvis TECHNIQUE: ? COMPARISON: None FINDINGS: Chest: A right basal process obscures the right diaphragm and right CP angle. The remaining lungs and left pleural space a re clear without evidence of pneumothorax or pleural effusion. The he art, ayush, and pulmonary vascularity are within normal limits. No pneumoperitoneu m is seen and osseous structures are normal. Pelvis: The distended bladder opacified by excre bal contrast obscures evaluation of the sacrum. Bones: No fracture is present. Joints: No dislocation is seen. Normal a lignment Impression 1. ??No fracture or dislocation 2. ??Right basal process representing an y combination of effusion, atelectasis or consolidation. Procedure Note Rachel Borrego MD - 11/06/2014Formatt ing of this note might be different from the original. EXAMINATION: AP CHEST AND AP PELVIS CLINICAL HISTORY: trauma- ICH; Body Part (please add comments as necessary): Chest, Pelvis TECHNIQUE: COMPARISON: None FINDINGS: Chest: A right basal process obscures the right diaphragm and right CP angle. The remaining lungs and left pleural space a re clear without evidence of pneumothorax or pleural effusion. The he art, ayush, and pulmonary vascularity are within normal limits. No pneumoperitoneu m is seen and osseous structures are normal. Pelvis: The distended bladder opacified by excre bal contrast obscures evaluation of the sacrum. Bones: No fracture is present. Joints: No dislocation is seen. Normal a lignment Impression 1. No fracture or dislocation 2. Right basal process representing any combination of effusion, atelectasis or consolidation. Dorian Pena MD IMG DX ORDERABLES Gold Tube HOLD (11/06/2014 7:30 PM EDT) P athologist Signature Gold Hold Sample in [employer] lab. [facility] Specimen Anatomical Collection Method Collection Time Receive d Time (Source) Location / / Volume Laterality Blood specimen Venous Draw / 11/06/2014 7:30 PM 2014 7:48 (specimen) Unknown EDT PM EDT Dorian Pena MD CHEMISTRY ORDERABLES Performing Organization Address City/[facility]/ZIP Code Phon e Number [address] CERNER MILLENNIUM (ABNORMAL) Differential, Automated (11/06/2014 7:30 PM EDT) [facility] Method Time Signature Neutrophils % 62.7 % CERNER MILLENNIUM Neutr Abs (ANC) 6.31 (H) 1.50 - CERNER 6.30 MILLENNIUM x10(3)/mc L Lymphocytes % 27.7 % CERNER MILLENNIUM Lymphocytes Abs 2.8 1.0 - 3.6 CERNER x10(3)/mc MILLENNIUM L Monocytes % 7.8 % CERNER MILLENNIUM Monocyte Abs 0.8 0.2 - 1.0 CERNER x10(3)/mc MILLENNIUM L Eosinophils % 1.0 % CERNER MILLENNIUM Eosinophils Abs 0.1 0.0 - 0.5 CERNER x10(3)/mc MILLENNIUM L Basophils % 0.5 % CERNER MILLENNIUM Basophils Abs 0.0 0.0 - 0.2 CERNER x10(3)/mc MILLENNIUM L Immature Gran % 0.30 % CERNER MILLENNIUM Comment: Immature granulocytes(IG's)percentage an d absolute count will include metamyelocytes, myelocytes, and promyelo cytes. Blood smears from CBCs yielding IG's will be scanned manually for concor dance. If this scan disagrees with the automated IG or if promyelocytes are not ed, a manual differential will be performed. Anette Gran Abs 0.03 0.00 - 0.05 x10(3)/mcL CER NER MILLENNIUM Specimen Anatomical Collection Method Collection Time Receive d Time (Source) Location / / Volume Laterality Blood specimen 11/06/2014 7:30 PM 015 7:44 (specimen) EDT PM EDT Resulting Agency Comment Spec In Lab Dorian Pena MD HEMATOLOGY ORDERABLES Performing Organization Address City/[facility]/[place] [address] CERNER MILLENNIUM (ABNORMAL) Hemogram (11/06/2014 7:30 PM EDT) athologist Signature WBC 10.1 (H) 4.0 - 10.0 CERNER x10(3)/mcL MILLENNIUM RBC 4.72 4.63 - CERNER 6.08 MILLENNIUM x10(6)/mcL Hemoglobin 16.4 13.7 - CERNER 17.5 gm/dL MILLENNIUM Hematocrit 45.9 40.0 - CERNER 51.0 % MILLENNIUM MCV 97.2 (H) 79.0 - CERNER 92.0 fL MILLENNIUM MCH 34.7 (H) 25.6 - CERNER 32.2 pg MILLENNIUM MCHC 35.7 32.0 - CERNER 36.5 gm/dL MILLENNIUM Platelets 223 145 - 370 CERNER x10(3)/mcL MILLENNIUM RDWSD 43.8 35.0 - CERNER 46.0 fL MILLENNIUM RDWCV 12.3 10.9 - CERNER 14.4 % MILLENNIUM MPV 10.1 9.0 - 12.0 CERNER fL MILLENNIUM Specimen Anatomical Collection Method Collection Time Receive d Time (Source) Location / / Volume Laterality Blood specimen 11/06/2014 7:30 PM 015 7:44 (specimen) EDT PM EDT Resulting Agency Comment Spec In Lab Dorian Pena MD HEMATOLOGY ORDERABLES Performing Organization Address City/State/[place] [address] [facility] Ethanol Level (11/06/2014 7:30 PM EDT) athologist Signature Ethanol Lvl 1,313 mg/L CERNER MILLENNIUM Comment: Greater than 800 mg/L (0.08%) should be considered intoxicated. 3400 to 4500 mg/L (0.34 - 0.45%) is cons idered severe intoxication. Greater than 5500 mg/L (0.55%) is usuall y fatal. Specimen Anatomical Collection Method Collection Time Receive d Time (Source) Location / / Volume Laterality Blood specimen 11/06/2014 7:30 PM 015 7:44 (specimen) EDT PM EDT Resulting Agency Comment Spec In Lab May Dillard MD CHEMISTRY ORDERABLES Performing Organization Address [facility]/ZIP Code Phon e Number [address] CERNER MILLENNIUM APTT (11/06/2014 7:30 PM EDT) athologist Signature PTT 29 25 - 35 sec [facility] MILLENNIUM Comment: Recommended therapeutic PTT range for fu ll dose unfractionated heparin is 80-114 seconds. Specimen Anatomical Collection Method Collection Time Receive d Time (Source) Location / / Volume Laterality Blood specimen 11/06/2014 7:30 PM 015 7:44 (specimen) EDT PM EDT Resulting Agency Comment Spec In Lab May Dillard MD HEMATOLOGY ORDERABLES Performing Organization Address [facility]/ZIP Code Phon e Number [address] [facility] MILLENNIUM Prothrombin Time (11/06/2014 7:30 PM EDT) athologist Signature PT 13.2 12.0 - 15.0 CERNER sec MILLENNIUM Comment: Transfusion Committee Guidelines: INR less than 2.0, PTT less than OR equal to 43.5 seconds, or Fibrinogen greater t mcghee or equal to 100 mg/dl indicate adequate procoagulant activity for hemos tasis in patients without underlying bleeding disorders. INR 1.0 0.9 - 1.1 [facility] Specimen Anatomical Collection Method Collection Time Receive d Time (Source) Location / / Volume Laterality Blood specimen 11/06/2014 7:30 PM 015 7:44 (specimen) EDT PM EDT Resulting Agency Comment Spec In Lab May Dillard MD HEMATOLOGY ORDERABLES Performing Organization Address City/[facility]/ZIP Code Phon e Number [address] [facility] MILLENNIUM (ABNORMAL) Basic Metabolic Panel (non-fasting) (11/06/2014 7:30 PM EDT) P athologist Signature Glucose Lvl 108 65 - 199 CERNER mg/dL [facility] Comment: Diabetes: >=200 mg/dL plus symp toms BUN 4 (L) 10 - 20 mg/dL CERNER MILLENNIU M Creatinine 0.69 (L) 0.80 - 1.50 mg/dL CERNER MILL ENNIUM Comment: Please note that the pediatric reference intervals supplied above were not validated at [facility]. Results from pediatri c patients should be interpreted in conjunction to the patient's age, height and muscle mass. Sodium 144 135 - 145 mmol/L CERNER DWIGHT NIUM Potassium 3.7 3.5 - 5.0 mmol/L CERNER DWIGHT NIUM Comment: Please note: ??Patients with WBC >100,00 0 may have falsely elevated Potassium levels. ??For accurate Potassium quantif ication in these patients send serum separator tube (gold top) for subsequent determinations. ??Contact the Clinical Chemistry Laboratory if there are any qu estions. Chloride 101 98 - 107 mmol/L CERNER MILLENN IUM CO2 29 22 - 31 mmol/L CERNER MILLENNI UM Anion Gap 14 5 - 15 mmol/L CERNER MILLENNIU M Calcium 8.9 8.5 - 10.5 mg/dL CERNER DWIGHT NIUM Estimated GFR >60 >=60 CERNER MILLENNIU M Comment: This estimated GFR (eGFR) value was calc ulated using the MDRD equation which has been validated on patients between t he ages of 18 and 70. The MDRD should not be used to assess kidney function in patients < 18 years of age or in patients with extremes of body mass, or in patients with acute kidney failure. This value should be multiplied by 1.2 f or patients. For further information please copy and past e the following links into your internet browser. [email or web address]/DHnkdep [email or web address]/DHnkf Specimen Anatomical Collection Method Collection Time Receive d Time (Source) Location / / Volume Laterality Blood specimen 11/06/2014 7:30 PM 015 7:44 (specimen) EDT PM EDT Resulting Agency Comment Spec In Lab May Dillard MD CHEMISTRY ORDERABLES Performing Organization Address City/State/ZIP [place] [address] CERNER MILLENNIUM documented in this encounter Visit Diagnoses Diagnosis ST segment depression Trauma Injury, other and unspecified, unspecifi ed site Abnormal brain CT Nonspecific (abnormal) findings on radio logical and other examination of skull and head T wave inversion in EKG Nonspecific abnormal electrocardiogram ( ECG) (EKG) Pain of cervical spine Cervicalgia Ulnar fracture, unspecified laterality, closed, initial encounter Trauma Injury, other and unspecified, unspecifi ed site Ulnar fracture, unspecified laterality, closed, initial encounter Trauma Injury, other and unspecified, unspecifi ed site documented in this encounter Administered Medications Inactive Administered Medications - up to 3 most recent administrations Medication Order MAR Action Action Date Dose Rate Site acetaminophen (TYLENOL) tablet Given 11/06/2014 11:08 PM EDT 1,0 00 mg 1,000 mg 1,000 mg, Oral, EVERY 6 HOURS PRN, Starting on Sun11/06/14 at 2132, Until Sun11/07/14 at 0621, Pain, for MODERATE pain (4-6), Do not exceed 4,000 mg in 24 hours, Routine acetaminophen (TYLENOL) tablet 1,000 mg Given 11/07/2014 8:27 AM EDT 1,000 mg 1,000 mg, Oral, EVERY 6 HOURS, First dose (after last modification) on 11/07/14 at 0800, Until Discontinued, Do not exceed 4,000 mg in 24 hours, Routine acetaminophen (TYLENOL) tablet 650 mg Given 11/19/2014 7:04 AM EDT 650 mg 650 mg, Oral, EVERY 6 HOURS, First dose (after last modification) on 11/07/14 at 1400, Until Discontinued, Do not exceed 4,000 mg in 24 hours, Routine Given 11/19/2014 3:16 AM EDT 650 mg Given 11/18/2014 8:27 PM EDT 650 mg beclomethasone (QVAR) 40 mcg/actuation Given 11/19/2014 9:21 AM EDT 2 puffs inhaler 2 puff 2 puff, Inhalation, 2 TIMES DAILY, First dose on 11/07/14 at 1300, Until Discontinued, Shake well; Rinse mouth after administration. Given 11/18/2014 8:04 AM EDT 2 puffs Given 11/17/2014 8:05 PM EDT 2 puffs bisacodyl (DULCOLAX) suppository 10 mg Given 11/11/2014 6:30 PM EDT 10 mg 10 mg, Rectal, DAILY PRN, Starting on Sun11/11/14 at 1817, Until Kaur 11/19/14 at 1343, Constipation, Routine buPROPion (WELLBUTRIN SR) SR tablet 150 mg Given 11/19/2014 9:21 AM EDT 150 mg 150 mg, Oral, 2 TIMES DAILY, First dose on Sun11/07/14 at 1300, Until Discontinued, Routine Given 11/18/2014 8:28 PM EDT 150 mg Given 11/18/2014 8:04 AM EDT 150 mg chlorhexidine (PERIDEX) 0.12 % oral solution Given 07/2014 10:23 AM EDT 15 mLs 15 mL 15 mL, Oral, EVERY 12 HOURS, First dose on Sun11/06/14 at 2200, Until Discontinued, To brush teeth, Routine Given 11/06/2014 11:05 PM EDT 15 mLs citalopram (CeleXA) tablet 20 mg Given 11/19/2014 9:21 AM EDT 20 mg 20 mg, Oral, DAILY, First dose on Sun11/07/14 at 1300, Until Discontinued, Routine Given 11/18/2014 8:04 AM EDT 20 mg Given 11/17/2014 8:27 AM EDT 20 mg famotidine (PEPCID) tablet 20 mg Given 11/07/2014 8:30 AM EDT 20 mg 20 mg, Oral, 2 TIMES DAILY, First dose on Sun11/06/14 at 2200, Until Discontinued, If unable to take PO, may give IV, Routine Given 11/06/2014 11:05 PM EDT 20 mg fentaNYL 50mcg/mL injection Given 11/06/2014 8:33 PM EDT 50 mcg 50 mcg, Intravenous, PER TRAUMA ANALGESIC PROTOCOL, Starting on Sun11/06/14 at 1922, Until Sun11/06/14 at 2132, Pain, Every 5-15 minutes PRN, STAT Given 11/06/2014 7:48 PM EDT 50 mcg Given 11/06/2014 7:38 PM EDT 50 mcg folic acid (FOLVITE) tablet 1,000 mcg Given 11/09/2014 10:27 AM EDT 1,000 mcg 1,000 mcg (1 mg), Oral, DAILY, 3 doses, First dose on Sun11/07/14 at 0900, Last dose on Sun11/09/14 at 0900, Routine Given 11/08/2014 8:48 AM EDT 1,000 mcg Given 11/07/2014 8:30 AM EDT 1,000 mcg gabapentin (NEURONTIN) capsule 900 mg Given 11/19/2014 9:21 AM EDT 900 mg 900 mg, Oral, 3 TIMES DAILY, First dose on Sun11/07/14 at 1300, Until Discontinued, Routine Given 11/18/2014 8:28 PM EDT 900 mg Given 11/18/2014 2:13 PM EDT 900 mg HYDROmorphone (DILAUDID) injection 0.4 m g Given 11/07/2014 12:43 AM EDT 0.4 mg 0.4 mg, Intravenous, EVERY 2 HOURS PRN, Starting on Sun11/06/14 at 2039, Until Sun11/07/14 at 0620, Pain, Routine Given 11/06/2014 9:25 PM EDT 0.4 mg HYDROmorphone (DILAUDID) injection 0.4 m g Given 11/09/2014 4:51 PM EDT 0.4 mg 0.4 mg, Intravenous, EVERY 2 HOURS PRN, Starting on Sun11/07/14 at 0620, Until Sun11/10/14 at 0635, Pain, BTP not relieved by oxycodone, Routine Given 11/08/2014 3:55 AM EDT 0.4 mg Given 11/08/2014 12:17 AM EDT 0.4 mg ipratropium-albuterol (DUONEB) 0.5 mg-3 mg(2.5 Given 0 11/19/2014 9:21 AM EDT 3 mLs mg base)/3 mL nebulizer solution 3 mL 3 mL, Nebulization, EVERY 4 HOURS, First dose on Sun11/08/14 at 0800, Until Discontinued, Routine Given 11/19/2014 6:39 AM EDT 3 mLs Given 11/18/2014 5:22 PM EDT 3 mLs labetalol (NORMODYNE,TRANDATE) injection 10 Given 11/10/2014 12:45 AM EDT 10 mg mg 10 mg, Intravenous, EVERY 2 HOURS PRN, Starting on Sun11/07/14 at 0246, Until Sun11/14/14 at 0552, High Blood Pressure, Please give for SBP > 160; hold for HR < 60, Routine Given 11/09/2014 9:42 PM EDT 10 mg Given 11/09/2014 3:02 AM EDT 10 mg labetalol (NORMODYNE,TRANDATE) injection 10 mg Given 11/09/2014 2:37 AM EDT 10 mg 10 mg, Intravenous, ONCE, 1 dose, On 11/09/14 at 0245, STAT lidocaine (LIDODERM) 5 %(700 mg/patch) patch Given 8:05 AM EDT 1 patch 1 patch 1 patch, Transdermal, DAILY, First dose on Sun11/07/14 at 0900, Until Discontinued, Apply patch(es) to R chest wall for 12 hours, and then remove for 12 hours, Routine Given 11/17/2014 8:29 AM EDT 1 patch Given 11/16/2014 8:24 AM EDT 1 patch lidocaine (LIDODERM) patch REMOVAL Given 11/09/2014 9:00 PM EDT 1 patch Transdermal, NIGHTLY, First dose on 11/07/14 at 2100, Until Discontinued, Remove Lidocaine Patch Given 11/08/2014 9:00 PM EDT 1 patch Given 11/07/2014 9:00 PM EDT 1 patch lisinopril (PRINIVIL;ZESTRIL) tablet 10 mg Given 11/19/2014 9:21 AM EDT 10 mg 10 mg, Oral, DAILY, First dose on Sun11/10/14 at 0900, Until Discontinued, Routine Given 11/18/2014 8:03 AM EDT 10 mg Given 11/17/2014 8:27 AM EDT 10 mg LORazepam (ATIVAN) injection 1 mg Given 11/06/2014 8:04 PM EDT 1 mg 1 mg, Intravenous, ONCE, 1 dose, On Sun11/06/14 at 2000, STAT LORazepam (ATIVAN) injection 1 mg Given 11/06/2014 8:18 PM EDT 1 mg 1 mg, Intravenous, ONCE, 1 dose, On Sun11/06/14 at 2018, STAT LORazepam (ATIVAN) injection 1 mg Given 11/08/2014 11:52 AM EDT 1 mg 1 mg, Intravenous, ONCE, 1 dose, On Sun11/08/14 at 1130, For MRI, Routine LORazepam (ATIVAN) injection 1-3 mg Given 11/10/2014 5:52 AM EDT 3 mg 1-3 mg, Intravenous, EVERY 4 HOURS PRN, Starting on Sun11/06/14 at 2132, Until Sun11/11/14 at 0823, alcohol/benzodiazepine withdrawal- uncomplicated, When given intravenously, the rate of administration should not exceed 2 mg/minute with ermergency equipment available. Per assessment scale for uncomplicated withdrawal from alcohol. May give IV if unable to take PO. May give IM if no IV access. Medication should be administered at least every 4 hours: For withdrawal score of 5-7, give 1 mg PO or IV or IM: administer every 4 hours. For withdrawal score of 8-10, give 2 mg PO or IV or IM: administer every 4 hours. For withdrawal score of 11 or greater, give 3 mg PO or IV or IM: administer every 4 hours. + If withdrawal score remains 11 or greater for two consecutive assessment periods, medicate every 2 hours. + If patient has had seizures in previous 8 hours and has gone 4 hours without medications, give 3 mg PO or IV or IM., Routine Given 11/10/2014 2:03 AM EDT 3 mg Given 11/09/2014 5:30 AM EDT 3 mg LORazepam (ATIVAN) tablet 0.5 mg Given 11/15/2014 12:53 AM EDT 0.5 mg 0.5 mg, Oral, EVERY 6 HOURS SCHEDULED, First dose (after last modification) on 11/14/14 at 0615, Until Discontinued, Routine Given 11/14/2014 5:03 PM EDT 0.5 mg Given 11/14/2014 11:27 AM EDT 0.5 mg LORazepam (ATIVAN) tablet 0.5 mg Given 11/15/2014 4:49 PM EDT 0.5 mg 0.5 mg, Oral, EVERY 8 HOURS, First dose (after last modification) on 11/15/14 at 0900, Until Discontinued, Routine Given 11/15/2014 9:00 AM EDT 0.5 mg LORazepam (ATIVAN) tablet 0.5 mg Given 11/17/2014 8:05 PM EDT 0.5 mg 0.5 mg, Oral, 2 TIMES DAILY, First dose (after last modification) on 11/16/14 at 0900, Until Discontinued, Routine Given 11/17/2014 8:27 AM EDT 0.5 mg Given 11/16/2014 8:16 PM EDT 0.5 mg LORazepam (ATIVAN) tablet 0.5 mg Given 11/18/2014 8:27 PM EDT 0.5 mg 0.5 mg, Oral, NIGHTLY, First dose (after last modification) on Sun11/18/14 at 2100, Until Discontinued, Routine LORazepam (ATIVAN) tablet 1 mg Given 11/07/2014 8:28 AM EDT 1 mg 1 mg, Oral, EVERY 8 HOURS, First dose on 11/07/14 at 0730, Until Discontinued, Routine LORazepam (ATIVAN) tablet 1 mg Given 11/08/2014 2:17 AM EDT 1 mg 1 mg, Oral, EVERY 6 HOURS, First dose (after last modification) on 11/07/14 at 1430, Until Discontinued, Routine Given 11/07/2014 7:51 PM EDT 1 mg Given 11/07/2014 2:29 PM EDT 1 mg LORazepam (ATIVAN) tablet 1 mg Given 11/10/2014 1:33 AM EDT 1 mg 1 mg, Oral, EVERY 8 HOURS, First dose (after last modification) on 11/08/14 at 1030, Until Discontinued, Routine Given 11/09/2014 5:39 PM EDT 1 mg Given 11/09/2014 10:28 AM EDT 1 mg LORazepam (ATIVAN) tablet 1 mg Given 11/09/2014 2:43 AM EDT 1 mg 1 mg, Oral, ONCE, 1 dose, On Sun11/09/14 at 0245, Routine LORazepam (ATIVAN) tablet 1 mg Given 11/14/2014 1:09 AM EDT 1 mg 1 mg, Oral, EVERY 6 HOURS SCHEDULED, First dose (after last modification) on Sun11/10/14 at 1200, Until Discontinued, Routine Given 11/13/2014 5:12 PM EDT 1 mg Given 11/13/2014 11:26 AM EDT 1 mg LORazepam (ATIVAN) tablet 1-3 mg Given 11/12/2014 2:28 AM EDT 1 mg 1-3 mg, Oral, EVERY 4 HOURS PRN, Starting on Sun11/06/14 at 2132, Until Kaur 11/12/14 at 0646, alcohol/benzodiazepine withdrawal- uncomplicated, Per assessment scale for uncomplicated withdrawal from alcohol. May give IV if unable to take PO. May give IM if no IV access. Medication should be administered at least every 4 hours: For withdrawal score of 5-7, give 1 mg PO or IV or IM: administer every 4 hours. For withdrawal score of 8-10, give 2 mg PO or IV or IM: administer every 4 hours. For withdrawal score of 11 or greater, give 3 mg PO or IV or IM: administer every 4 hours. + If withdrawal score remains 11 or greater for two consecutive assessment periods, medicate every 2 hours. + If patient has had seizures in previous 8 hours and has gone 4 hours without medications, give 3 mg PO or IV or IM., Routine Given 11/10/2014 6:13 PM EDT 1 mg Given 11/10/2014 9:57 AM EDT 1 mg LORazepam (ATIVAN) tablet 2 mg Given 11/07/2014 5:23 AM EDT 2 mg 2 mg, Oral, EVERY 8 HOURS, 6 doses, First dose on Sun11/06/14 at 2200, Last dose on Sun11/08/14 at 1400, May give IV if unable to take PO. May give IM if no IV access., Routine Given 11/06/2014 10:01 PM EDT 2 mg LORazepam (ATIVAN) tablet 2 mg Given 11/06/2014 8:28 PM EDT 2 mg 2 mg, Oral, ONCE, 1 dose, On Sun11/06/14 at 2019, Routine magnesium sulfate 2 g in sterile water Given 11/07/2014 12:1 1 AM EDT 2 g 25 mL/hr 50 mL 2 g, Intravenous, ONCE, 1 dose, On Sun11/06/14 at 2200, Administer over 120 Minutes melatonin tablet 3 mg Given 11/09/2014 12:48 AM EDT 3 mg 3 mg, Oral, ONCE, 1 dose, On Sun11/09/14 at 0100, STAT miconazole (MICOTIN) 2 % powder Given 11/19/2014 11:33 AM EDT Topical (Top), 2 TIMES DAILY, First dose on Sun11/16/14 at 1000, Until Discontinued Given 11/18/2014 11:13 PM EDT Given 11/18/2014 10:43 AM EDT multivitamin (THERAGRAN) tablet 1 tablet Given 11/19/2014 9:21 AM EDT 1 tablet 1 tablet, Oral, DAILY, First dose on Sun11/10/14 at 1200, Until Discontinued Given 11/18/2014 8:03 AM EDT 1 tablet Given 11/17/2014 8:27 AM EDT 1 tablet nicotine (NICODERM CQ) 21 mg/24 hr patch 21 mg Given 11/18/2014 8:04 AM EDT 21 mg 21 mg, Transdermal, DAILY, First dose on 11/07/14 at 0900, Until Discontinued, Routine Given 11/17/2014 8:29 AM EDT 21 mg Given 11/16/2014 8:23 AM EDT 21 mg nicotine (NICODERM CQ) patch REMOVAL Given 11/17/2014 9:00 AM EDT 1 patch Transdermal, DAILY, First dose on 11/08/14 at 0900, Until Discontinued, Remove Nicotine Patch Given 11/16/2014 9:00 AM EDT 1 patch Given 11/13/2014 9:00 AM EDT 1 patch oxyCODONE (ROXICODONE) immediate release Given 11/06/2014 11:08 PM EDT 10 mg tablet 10 mg 10 mg, Oral, EVERY 4 HOURS PRN, Starting on Sun11/06/14 at 2132, Until 11/07/14 at 0620, Pain, Moderate pain (4-6), May repeat 5 mg in 60 minutes if pain not relieved., Routine oxyCODONE (ROXICODONE) immediate release Given 11/08/2014 10:16 AM EDT 10 mg tablet 5-10 mg 5-10 mg, Oral, EVERY 4 HOURS PRN, Starting on 11/07/14 at 0619, Until 11/08/14 at 1407, Pain, Give 5mg for pain 0-5; Give 10mg for pain 6-10, Routine Given 11/07/2014 12:45 PM EDT 10 mg oxyCODONE (ROXICODONE) immediate release Given 11/19/2014 7:31 A M EDT 15 mg tablet 5-15 mg 5-15 mg, Oral, EVERY 4 HOURS PRN, Starting on 11/08/14 at 1407, Until Kaur 11/19/14 at 1343, Pain, give 5mg for pain 0-4; give 10mg for pain 5-7; give 15mg for pain 8-10, Routine Given 11/19/2014 3:15 AM EDT 15 mg Given 11/18/2014 11:03 PM EDT 15 mg polyethylene glycol (MIRALAX) packet 17 g Given 11/10/2014 2:13 PM EDT 17 g 17 g, Oral, DAILY PRN, Starting on 11/07/14 at 1241, Until Sun11/11/14 at 0628, Constipation, Administer if needed per patient's routine or if no bowel movement within 48 hours to achieve: 1) One bowel movement at least every 48 hours, AND 2) Without straining. If multiple bowel medications ordered, consider polyethylene glycol(MIRALAX) first., Routine polyethylene glycol (MIRALAX) packet 17 g Given 11/12/2014 9:41 AM EDT 17 g 17 g, Oral, DAILY, First dose (after last modification) on Sun11/11/14 at 0900, Until Discontinued, Administer if needed per patient's routine or if no bowel movement within 48 hours to achieve: 1) One bowel movement at least every 48 hours, AND 2) Without straining. If multiple bowel medications ordered, consider polyethylene glycol(MIRALAX) first., Routine Given 11/11/2014 8:37 AM EDT 17 g polyethylene glycol (MIRALAX) packet 17 g Given 11/18/2014 8:05 AM EDT 17 g 17 g, Oral, 2 TIMES DAILY, First dose (after last modification) on 11/15/14 at 0900, Until Discontinued, Administer if needed per patient's routine or if no bowel movement within 48 hours to achieve: 1) One bowel movement at least every 48 hours, AND 2) Without straining. If multiple bowel medications ordered, consider polyethylene glycol(MIRALAX) first., Routine Given 11/16/2014 8:10 AM EDT 17 g potassium chloride (K-DUR/KLOR-CON) extended Given 11/2014 7:06 AM EDT 40 mEq release tablet 40 mEq 40 mEq, Oral, ONCE, 1 dose, On Sun11/11/14 at 0645, 20 mEq tablet may be dissolved in water for administration, Routine propranolol (INDERAL) tablet 80 mg Given 11/18/2014 2:15 PM EDT 80 mg 80 mg, Oral, 4 TIMES DAILY, First dose on 11/07/14 at 1300, Until Discontinued, Hold for SBP <90, HR <60, Routine Given 11/17/2014 8:28 AM EDT 80 mg Given 11/16/2014 12:11 PM EDT 80 mg senna-docusate (PERICOLACE) 8.6-50 mg per Given 2014 9:07 PM EDT 2 tablets tablet 2 tablet 2 tablet, Oral, 2 TIMES DAILY, First dose on Sun11/07/14 at 1300, Until Discontinued, Routine Given 11/09/2014 8:53 PM EDT 2 tablets Given 11/09/2014 10:28 AM EDT 2 tablets senna-docusate (PERICOLACE) 8.6-50 mg per Given 2014 9:22 AM EDT 2 tablets tablet 4 tablet 4 tablet, Oral, 2 TIMES DAILY, First dose (after last modification) on Sun11/11/14 at 0900, Until Discontinued, Routine Given 11/16/2014 8:13 AM EDT 2 tablets Given 11/12/2014 9:42 AM EDT 4 tablets sodium chloride 0.9 % flush 5 mL Given 11/16/2014 8:20 AM EDT 5 mLs 5 mL, Intravenous, 2 TIMES DAILY, First dose on Sun11/06/14 at 2200, Until Discontinued, Routine Given 11/15/2014 8:33 PM EDT 5 mLs Given 11/15/2014 9:15 AM EDT 5 mLs sodium chloride 0.9% 1,000 mL with New Bag 11/06/2014 9:52 PM EDT 100 mL/hr multivitamin adult 10 mL, folic acid 1 mg, thiamine 100 mg infusion at 100 mL/hr, Intravenous, ONCE, 1 dose, On Sun11/06/14 at 2100 thiamine tablet 50 mg Given 11/09/2014 10:29 AM EDT 50 mg 50 mg, Oral, DAILY, 3 doses, First dose on Sun11/07/14 at 0900, Last dose on Sun11/09/14 at 0900, Routine Given 11/08/2014 8:47 AM EDT 50 mg Given 11/07/2014 10:17 AM EDT 50 mg traZODone (DESYREL) tablet 100 mg Given 11/11/2014 9:15 PM EDT 100 mg 100 mg, Oral, NIGHTLY, First dose on Sun11/10/14 at 2100, Until Discontinued, Routine Given 11/10/2014 9:58 PM EDT 100 mg traZODone (DESYREL) tablet 150 mg Given 11/18/2014 8:28 PM EDT 150 mg 150 mg, Oral, NIGHTLY, First dose (after last modification) on Kaur 11/12/14 at 2100, Until Discontinued, Routine Given 11/17/2014 8:05 PM EDT 150 mg Given 11/16/2014 8:15 PM EDT 150 mg documented in this encounter Active and Recently Administered Medications Times are shown in EDT. Scheduled Medication Order 11/17/2014 11/18/2014 11/19/2014 acetaminophen (TYLENOL) tablet 650 mg 0245 (Not Given - Provider: Lea Grijalva RN - Reason: Patient/family refused)08 (Given - Provider: Sherri Spear RN)141 (Given - Provider: Sherri Spear RN)2004 (Given - Provider: Lea Grijalva RN) 124 (Given - Provider: Lea Grijalva RN)08 (Given - Provider: Sherri Spear RN)141 (Given - Provider: Sherri Spear RN)2026 (Given - Provider: Carolyn Howard RN) 031 (Given - Provider: Carolyn Howard RN)07 (Given - Provider: Carolyn Howard RN) 650 mg, Oral, EVERY 6 HOURS, First dose on 11/07/14 at 1400, Until Discontinued, Do not exceed 4,000 mg in 24 hours, Routine beclomethasone (QVAR) 40 mcg/actuation inhaler 2 puff (CANCELED) 0834 (Not Given - Provider: Sherri Spear RN - Reason: Patient/family refused)2004 (Given - Provider: Lea Grijalva RN) 08 (Given - Provider: Sherri Spear RN)2099 (Not Given - Provider: Carolyn Howard RN - Reason: Patient/family refused) 09 (Given - Provider: Sherri Spear RN) 2 puff, Inhalation, 2 TIMES DAILY, First dose on 11/07/14 at 1300, Until Discontinued, Shake well; Rinse mouth after administration., Routine buPROPion (WELLBUTRIN SR) SR tablet 150 mg (CANCELED) 0827 (Given - Provider: Sherri Spear RN)2005 (Given - Provider: Lea Grijalva RN) 0804 (Given - Provider: Sherri Spear RN)2027 (Given - Provider: Carolyn Howard RN) 09 (Given - Provider: Sherri Spear RN) 150 mg, Oral, 2 TIMES DAILY, First dose on 11/07/14 at 1300, Until Discontinued, Routine citalopram (CeleXA) tablet 20 mg (CANCELED) 0827 (Give n - Provider: Sherri Spear RN) 0804 (Given - Provider: Sherri Spear RN) 09 (Give n - Provider: Sherri Spear RN) 20 mg, Oral, DAILY, First dose on 11/07/14 at 1300, Until Discontinued, Routine gabapentin (NEURONTIN) capsule 900 mg (CANCELED) 08 (Given - Provider: Sherri Spear RN)141 (Given - Provider: Sherri Spear RN)2004 (Given - Provider: Lea Grijalva RN) 0803 (Given - Provider: Sherri Spear RN)1413 (Given - Provider: Sherri Spear RN)2027 (Given - Provider: Carolyn Howard RN) 09 (Given - Provider: Sherri Spear RN) 900 mg, Oral, 3 TIMES DAILY, First dose on 11/07/14 at 1300, Until Discontinued, Routine ipratropium-albuterol (DUONEB) 0.5 mg-3 mg(2.5 mg base)/3 mL nebulizer solution 3 mL 0147 (Not Given - Provider: Lea Grace res, RN - Reason: Patient/family refused)0434 (Not Given - Provider: Lea Grijalva RN - Reason: Patient/family refused)0829 (Given - Provider: Sherri Spear RN)1228 (Given - Provider: Sherri Spear RN) 0047 (Not Given - Provider: Lea Grace res, RN - Reason: See comment - Comment: pt asleep, will hold med until awake)0552 (Given - Provider: Lea Grijalva RN)1051 (Given - Provider: Sherri Spear RN)1414 (Given - Provider: Sherri Spear RN) 0100 (Not Given - Provider: Carolyn sosa RN - Reason: Patient/family refused)0639 (Given - Provider: Carolyn Howard RN)09 (Given - Provider: Sherri Spear RN) 3 mL, Nebulization, EVERY 4 HOURS, First dose on Sun11/08/14 at 0800, Until Discontinued, Routine 1635 (Given - Provider: Sherri Spear RN)2009 (Not Given - Provider: Lea Grijalva RN - Reason: Patient/family refused) 172 (Given - Provider: Sherri Spear RN)2099 (Not Given - Provider: Carolyn Howard RN - Reason: Patient/family refused) lidocaine (LIDODERM) 5 %(700 mg/patch) patch 1 patch 0 829 (Given - Provider: Sherri Spear RN) 0805 (Given - Provider: Sherri Spear RN) 09 (Not Given - Provider: Sherri Spear RN - Reason: See comment - Comment: pt discharged right after shower) 1 patch, Transdermal, DAILY, First dose on Sun11/07/14 at 0900, Until Discontinued, Apply patch(es) to R chest wall for 12 hours, and then remove for 12 hours, Routine lisinopril (PRINIVIL;ZESTRIL) tablet 10 mg 08 (Given - Provider: Sherri Spear RN) 802 (Given - Provider: Sherri Spear RN) 920 (Give n - Provider: Sherri Spear RN) 10 mg, Oral, DAILY, First dose on 10/17 at 0900, Until Discontinued, Routine LORazepam (ATIVAN) tablet 0.5 mg (CANCELED) 826 (Give n - Provider: Sherri Spear RN)2004 (Given - Provider: Lea Grijalva, ABEL) 0.5 mg, Oral, 2 TIMES DAILY, First dose on Sun11/16/14 at 0900, Until Discontinued, Routine LORazepam (ATIVAN) tablet 0.5 mg (CANCELED) 2026 (Given - Provider: Carolyn Howard RN) 0.5 mg, Oral, NIGHTLY, First dose on Sun11/18/14 at 2100, Until Discontinued, Routine miconazole (MICOTIN) 2 % powder 899 (Not Given - Prov ider: Sherri Spear RN - Reason: See comment - Comment: Not done with collar care)2005 (Given - Provider: Lea Grijalva RN) 1043 (Given - Provider: Sherri Spear RN)2099 (Not Given - Provider: Carolyn Howard RN - Reason: Patient/family refused)2313 (Given - Provider: Carolyn Howard RN - Comment: during collar care) 1133 (Given - Provider: Norma Ferrera RN) Topical (Top), 2 TIMES DAILY, First dose on Sun11/16/14 at 1000 multivitamin (THERAGRAN) tablet 1 tablet 0827 (Given - Provider: Sherri Spear RN) 0803 (Given - Provider: Sherri Spear RN) 0921 (Give n - Provider: Sherri Spear RN) 1 tablet, Oral, DAILY, First dose on Sun11/10/14 at 1200, Until Discontinued, Routine nicotine (NICODERM CQ) 21 mg/24 hr patch 21 mg 0829 (G iven - Provider: Sherri Spear RN) 0804 (Given - Provider: Sherri Spear RN) 0921 (Not Given - Provider: Sherri Spear RN - Reason: See comment - Comment: pt was discharged right after shower) 21 mg, Transdermal, DAILY, First dose on 11/07/14 at 0900, Until Discontinued, Routine nicotine (NICODERM CQ) patch REMOVAL (CANCELED) 0900 ( Given - Provider: Sherri Spear RN) 0900 (Patch Removed - Provider: Sherri Spear RN) 09 00 (Patch Removed - Provider: Sherri Spear RN) Transdermal, DAILY, First dose on 11/08/14 at 0900, Until Discontinued, Remove Nicotine Patch polyethylene glycol (MIRALAX) packet 17 g 0900 (Not Gi gia - Provider: Sherri Spear RN - Reason: Patient/family refused)2003 (Not Given - Provider: Lea Grijalva RN - Reason: Patient/family refused) 08 (Given - Provider: Sherri Spear RN)2099 (Not Given - Provider: Carolyn Howard RN - Reason: Patient/family refused) 0900 (Not Given - Provider: Sherri sarmiento RN - Reason: Patient/family refused) 17 g, Oral, 2 TIMES DAILY, First dose on Sun11/15/14 at 0900, Until Discontinued, Administer if needed per patient's routine or if no bowel movement within 48 hours to achieve: 1) One bowel movement at least every 48 hours, AND 2) Without str aining. If multiple bowel medications ordered, consider polyethylene glycol(MIRALAX) first., Routine propranolol (INDERAL) tablet 80 mg 0828 (Given - Provi john: Sherri Spear RN)1300 (Not Given - Provider: Sherri Spear RN - Reason: Order parameters not met)1700 (Not Given - Provider: Sherri Spear RN - Reason: Order parameters n ot met) 09 (Not Given - Provider: Sherri sarmiento RN - Reason: Order parameters not met)141 (Given - Provider: Sherri Spear RN)170 (Not Given - Provider: Sherri Spear RN - Reason: Order parameters not met) 09 (Not Given - Provider: Sherri Spear RN - Reason: Order parameters not met) 80 mg, Oral, 4 TIMES DAILY, First dose o n 11/07/14 at 1300, Until Discontinued, Hold for SBP <90, HR <60, Routine 2029 (Not Given - Provider: Lea Grijalva RN - Reason: Order parameters not met - Comment: HR 58) 2099 (Not Given - Provider: Carolyn Howard RN - Reason: Order parameters not met) senna-docusate (PERICOLACE) 8.6-50 mg per tablet 4 tab let 899 (Not Given - Provider: Sherri Spear RN - Reason: Patient/family refused)2003 (Not Given - Provider: Lea Grijalva RN - Reason: Patient/family refused) 09 (Not Given - Provider: Sherri Spear RN - Reason: Patient/family refused)2099 (Not Given - Provider: Carolyn Howard RN - Reason: Patient/family refused) 921 (Given - Provider: Sehrri Spear RN) 4 tablet, Oral, 2 TIMES DAILY, First dos e on Sun11/11/14 at 0900, Until Discontinued, Routine traZODone (DESYREL) tablet 150 mg 2004 (Given - Provider: Tawnya Grijalva RN) 2027 (Given - Provider: Carolyn Howard, ABEL) 150 mg, Oral, NIGHTLY, First dose on Kaur 11/12/14 at 2100, Until Discontinued, Routine PRN Medication Order 11/17/2014 11/18/2014 11/19/2014 bisacodyl (DULCOLAX) EC tablet 10 mg 10 mg, Oral, 2 TIMES DAILY PRN, Starting 11/07/14 at 1241, Until Kaur 11/19/14 at 1343, Constipation, Administer if needed per patient's routine or if no bowel movement within 48 hours to achieve: 1) On e bowel movement at least every 48 hours , AND 2) Without straining. If multiple bowel medications ordered, consider adding bisacodyl if polyethylene glycol (MIRALAX) and lactulose not sufficient., Routine bisacodyl (DULCOLAX) suppository 10 mg 10 mg, Rectal, DAILY PRN, Starting Wed at 1817, Until Kaur 11/19/14 at 1343, Constipation, Routine oxyCODONE (ROXICODONE) immediate release tablet 5-15 m g 0023 (Given - Provider: Lea Grijalva RN)0432 (Given - Provider: Lea Grijalva RN)0826 (Given - Provider: Sherri Spear RN)1228 (Given - Provider: Sehrri Spear RN)1635 (Given - Provider: Sherri Spear RN) 0125 (Given - Provider: Lea Grijalva RN)0553 (Given - Provider: Lea Grijalva RN)1051 (Given - Provider: Sherri Spear RN)1455 (Given - Provider: Sherri Spear RN)1855 (Given - Provider: Sa damián Spear RN) 0315 (Given - Provider: Carolyn Howard, R N)0731 (Given - Provider: Sherri Spear RN) 5-15 mg, Oral, EVERY 4 HOURS PRN, Starti ng Sun 11/08/14 at 1407, Until Kaur 11/19/14 at 1343, Pain, give 5mg for pain 0-4; give 10mg for pain 5-7; give 15mg for pain 8-10, Routine 2044 (Given - Provider: Lea Grijalva, RN) 2303 (Giv en - Provider: Carolyn Howard RN) documented in this encounter Care Teams Recruiting Manager Relationship Specialty Start Date End Date Sherri Rivas MD PCP - General 04/24/14 12/15/14 [address] [place] [address] documented as of this encounter
--- OUTSIDE RECORDS SUMMARY | 2021-12-22 15:36 | XMS_ITS | Encounter Summary ---
:1955 Author Organization [facility] [place] [address] Care Team Providers Name Role Phone Sherri Guzman MD Primary Care Provider Encounter Details Date Type Department Care Team Description 11/06/2014 Orders Only General Surgery at [facility] Ananda P[facility] [place] [address] GENERAL SURGERY [phone] [place] [id number] (Wo rk) Social History Tobacco Use Types Packs/Day Years Used Date Never Assessed Sex Assigned at Date Recorded Not on file documented as of this encounter Plan of Treatment Not on filedocumented as of this encounter Visit Diagnoses Not on filedocumented in this encounter Care Teams Hide And Skin Colerer Relationship Specialty Start Date End Date Sherri Guzman MD PCP - General 04/24/14 12/15/14 [address] [place] [address] documented as of this encounter
--- OUTSIDE RECORDS SUMMARY | 2021-12-22 15:36 | XMS_ITS | Encounter Summary ---
:1955 [place] [address] Care Team Providers Name Role Phone Saul Amaro MD Primary Care Provider [phone] Encounter Details Date Type Department Care Team Description 11/08/2013 Hospital Encounter Radiology Library at [place] Jared Levine, Wrist pain, left [facility] [address] [place] [address] SURGERY [phone] [place], [place] [address] Social History Tobacco Use Types Packs/Day Years Used Date Never Assessed Sex Assigned at Date Recorded Not on file documented as of this encounter Plan of Treatment Not on filedocumented as of this encounter Procedures Procedure Name Priority Date/Time Associated Diagnosis Comme nts FILM LIBRARY Routine 11/08/2013 12:00 AM Wrist pain, left Resu lts for this STORAGE ONLY DX EDT procedure ar e in WRIST the results section. documented in this encounter Results Film Library- Storage only DX Wrist (11/08/2013 12:00 AM EDT) Specimen (Source) Anatomical Location Collection Method / Collectio n Time Received Time / Laterality Volume Narrative RAD - 11/09/2015 11:31 AM EDT This exam is for storage only and is aut o-finalizing. Jared Bolaños MD G FILM LIBRARY ORDERABLES Performing Organization Address City/State/ZIP Code Phon e Number [place], [place] documented in this encounter Visit Diagnoses Diagnosis Wrist pain, left Pain in joint, forearm documented in this encounter Care Teams Derrick Boat Leverman Relationship Specialty Start Date End Date Saul Amaro MD PCP - General 01/25/10 04/23/[address] [place] [address] documented as of this encounter
--- OUTSIDE RECORDS SUMMARY | 2021-12-22 15:36 | XMS_ITS | Encounter Summary ---
:1955 [place] [address] Care Team Providers Name Role Phone Saul Amaro MD Primary Care Provider [phone] Encounter Details Date Type Department Care Team Description 01/20/2014 Hospital Encounter Radiology Library at [place] Jared Abner, Wrist pain, left [facility] [address] [place] [address] SURGERY [phone] [place], [place] [address] Social History Tobacco Use Types Packs/Day Years Used Date Never Assessed Sex Assigned at Date Recorded Not on file documented as of this encounter Plan of Treatment Not on filedocumented as of this encounter Procedures Procedure Name Priority Date/Time Associated Diagnosis Comme nts FILM LIBRARY Routine 01/20/2014 12:00 AM Wrist pain, left Resu lts for this STORAGE ONLY DX EST procedure ar e in WRIST the results section. documented in this encounter Results Film Library- Storage only DX Wrist (01/20/2014 12:00 AM EST) Specimen (Source) Anatomical Location Collection Method / Collectio n Time Received Time / Laterality Volume Narrative RAD - 11/09/2015 11:40 AM EDT This exam is for storage only and is aut o-finalizing. Jared Bolaños MD G FILM LIBRARY ORDERABLES Performing Organization Address City/State/ZIP Code Phon e Number RAD [place], [place] documented in this encounter Visit Diagnoses Diagnosis Wrist pain, left Pain in joint, forearm documented in this encounter Care Teams Wildlife Ecologist Relationship Specialty Start Date End Date Saul Amaro MD PCP - General 01/25/10 04/23/[address] [place] [address] documented as of this encounter
--- OUTSIDE RECORDS SUMMARY | 2021-12-22 15:36 | XMS_ITS | Encounter Summary ---
:1955 [place] [address] Care Team Providers Name Role Phone Saul Amaro MD Primary Care Provider [phone] Encounter Details Date Type Department Care Team Description 11/18/2013 Hospital Encounter Radiology [facility] at [place] Jared Levine, Wrist pain, left [facility] [address] [place] [address] SURGERY [phone] [place], [place] [address] Social History Tobacco Use Types Packs/Day Years Used Date Never Assessed Sex Assigned at Date Recorded Not on file documented as of this encounter Plan of Treatment Not on filedocumented as of this encounter Procedures Procedure Name Priority Date/Time Associated Diagnosis Comme nts FILM LIBRARY Routine 11/18/2013 12:00 AM Wrist pain, left Resu lts for this STORAGE ONLY DX EDT procedure ar e in WRIST the results section. documented in this encounter Results Film Library- Storage only DX Wrist (11/18/2013 12:00 AM EDT) Specimen (Source) Anatomical Location Collection Method / Collectio n Time Received Time / Laterality Volume Narrative RAD - 11/09/2015 11:34 AM EDT This exam is for storage only and is aut o-finalizing. Jared Bolaños MD G FILM LIBRARY ORDERABLES Performing Organization Address City/State/ZIP Code Phon e Number [place], [place] documented in this encounter Visit Diagnoses Diagnosis Wrist pain, left Pain in joint, forearm documented in this encounter Care Teams Rn Lactation Consultant Relationship Specialty Start Date End Date Saul Amaro MD PCP - General 01/25/10 04/23/[address] [place] [address] documented as of this encounter
--- OUTSIDE RECORDS SUMMARY | 2021-12-22 15:36 | XMS_ITS | Encounter Summary ---
:1955 Author Organization [facility] [place] [address] Care Team Providers Name Role Phone Sherri Guzman MD Primary Care Provider Reason for Visit Reason Onset Date Comments Referral 04/28/2014 Encounter Details Date Type Department Care Team Description 04/28/2014 Telephone Orthopaedics at [facility] [place] [address] Social History Tobacco Use Types Packs/Day Years Used Date Never Assessed Sex Assigned at Date Recorded Not on file documented as of this encounter Miscellaneous Notes Telephone Encounter - Lea Martines - 04/28/2014 8:29 AM EST Patient would like to continue physical therapy and will call us to schedule an appointment in a week or so if he would still like to move forward with scheduling. documented in this encounter Plan of Treatment Not on filedocumented as of this encounter Visit Diagnoses Not on filedocumented in this encounter Care Teams Litigation Attorney Relationship Specialty Start Date End Date Sherri Guzman MD PCP - General 04/24/14 12/15/14 [address] [place] [address] documented as of this encounter
--- OUTSIDE RECORDS SUMMARY | 2021-12-22 15:38 | XMS_ITS | Encounter Summary ---
:1955 Author Organization [facility] Address [address] [place] [address] Care Team Providers Name Role Phone Nisa Lechuga MD Primary Care Provider Unavailable Encounter Details Date Type Department Care Team Description 09/22/2009 Results Only [facility] Chacorta Lundberg MD Laboratory Services - [address] [place] [address] [address] [place] [address] [phone] Social History Tobacco Use Types Packs/Day Years Used Date Never Assessed Sex Assigned at Date Recorded Not on file documented as of this encounter Plan of Treatment Not on filedocumented as of this encounter Procedures Procedure Name Priority Date/Time Associated Diagnosis Comme [facility] SURGICAL PATHOLOGY Routine 09/22/2009 0:00 EDT Re sults for this procedure are i n the results section. documented in this encounter Results SURGICAL PATHOLOGY (09/22/2009 0:00 EDT) Pathology Report: SURGICAL PATHOLOGY REPORT ? ERNESTINA PURCELL Reports generated via [employer] interface contain original data; ? LAB however they are lacking the format of the original report. ? Caution should be taken when reading/interpreting unformatted reports. ? Name: ? PILOTTE, JAVON L ? Accession #: ? [id number] ? : ? 1955 (Age: 54) ??M ? Collec t Date: ? 09/22/2009 ? Location: ? [facility] ? R eceive Date: ? 09/22/2009 ? Provider: CHACORTA WALKO MD ? Copy to: NIYA Block D ? Final Pathologic Diagnosis: ? A. ?Skin of nec k, left, shave biopsy: ? 1. ?Seborrheic keratosis. ? B. ?Colon, cecu m, polyps, biopsy: ? 1. ?Tubular vanessa noma. ? 2. ? Heavily cauterized colonic mucosa. ? C. ?Colon, coy sverse, polyp, biopsy: ? 1. ?Polypoid co lonic mucosa with no specific pathologic features. ? D. ?Colon, sple christiano flexure, polyps, biopsy: ? 1. ?Fragments o f tubular adenoma(s). ? E. ?Colon, sigm oid, polyp, biopsy: ? 1. ?Tubular vanessa noma. ? F. ?Rectum, igor yp, biopsy: ? 1. ?Fragments o f tubular adenoma. ? Comment: ? Deeper levels have be en examined on specimens (B) and (C). ??(Dr. ? Jacob)/ljn ? Document reviewed and electr onically signed by: ? BENNY PIERRE MD ? Report ??Date: 09/27/2009 18 :20 ? By the signature above, the attending physician certifies that he/she has ? personally conducted a gross and/or microscopic examination of the described ? specimens and rendered or co nfirmed the above diagnosis. ? Specimen(s) Received: ? A. ?Seborrheic keratosis ??left neck (#1) ? B. ? Cecal polyps x3 (#2 ) ? C. ? Transverse colon polyp (#3) ? D. ? Splenic flexure igor yps x2 (#4) ? E. ? Sigmoid polyp (#5) ? F. ? Rectal polyp (#6) ? Clinical History: ? A. Seborrheic keratos is (h/o razor trauma); B. ??Rectal bleeding & ? constipation - colonoscopy ? Gross Description: ? Received in formalin labelled Pilotte, Derrick and seborrheic keratosis left neck is an apparent sh ave biopsy of a 1.0 x 1.0 x 0.4 cm larkin-pink, ? granular and scaly nodule. T he base is inked black, the specimen is quadrisected and entirely submitted in (A ). ? Received in Patricia's fixat milind labelled te, Derrick and cecal polyp ?? x3 are three pink-trejo irreg ular soft tissues ranging from 0.2 x 0.1 x 0.1 cm to 0.2 x 0.2 x 0.2 cm. ??Submit bal in toto in (B). ? Received in [facility]'s fixat milind labelled Ovidio Derrick and ? transverse ?? colon polyp is a single 0.3 x 0.2 x 0.2 cm pink-trejo irregular soft tissue. ? Submitted in toto in (C). ? Received in [facility]'s fixat milind labelled Ovidio Derrick and splenic ? flexure polyp are three pin k-trejo irregular soft tissues ranging from 0.2 x 0.2 x 0.1 cm to 0.3 x 0.3 x 0.3 cm. ??Submitted in toto in (D). ? Received in [facility]'s fixat milind labelled Pilotte, Derrick and sigmoid polyp is a 0.7 x 0.6 x 0.4 cm pink -trejo polypoid soft tissue. ??The resection margin is inked blue, the specimen is bisected and entirely submitted in (E). ? Received in [facility]'s fixat milind labelled Pilotte, Derrick and rectal polyp is a 0.5 x 0.4 x 0.4 cm pink -trejo polypoid tissue as well as 0.3 x 0.2 x 0.2 cm ?? pink-trejo irregular tissue fr agment. ??The resection margin of the polypoid tissue is inked blue. ??This tissue is bisected and entirely submitted in (F1) and the ?? separate fragment is submitt ed intact in (F2). ??(Noelle Matos)/lainey ? End of Report ? Specimen Performing Organization Address City/State/ZIP Code Phon e Number [facility] [address] [place] [address] SERVICES [facility] [address] [place] [address] documented in this encounter Visit Diagnoses Not on filedocumented in this encounter Care Teams Electrical Linesworker Relationship Specialty Start Date End Date Nisa Lechuga MD PCP - General 01/26/09 09/23/[address] [place] [address] [place] [address] documented as of this encounter
--- OUTSIDE RECORDS SUMMARY | 2021-12-22 15:38 | XMS_ITS | Encounter Summary ---
:1955 Author Organization [facility] Address [address] [place] [address] Care Team Providers Name Role Phone Unknown, Provider Primary Care Provider Encounter Details Date Type Department Care Team Description 09/23/2019 Lab [facility] Outr Resulting Lab, Pathology & Laboratory Provider [facility] [address] [place] [address] Social History Tobacco Use Types Packs/Day Years Used Date Never Assessed Sex Assigned at Date Recorded Not on file documented as of this encounter Plan of Treatment Not on filedocumented as of this encounter Procedures Procedure Name Priority Date/Time Associated Comments Diagnosis DO NOT ORDER Today 09/23/2019 8:56 EDT Results for this STANDALONE - BROAD procedure are in COVID TEST the results section. COVID-19 TESTING Routine 09/23/2019 8:56 EDT Resu lts for this procedure are i n the results section. documented in this encounter Results DO NOT ORDER STANDALONE - BROAD COVID TEST (09/23/2019 8:56 EDT) COVID-19 rt-PCR NEGATIVE Negative [facility] Result Comment: LABORATORY 2019-novel Coronavirus (2019 -nCoV) not detected by the qRT-PCR assay. Consider testing for other respiratory viruses or re-collecting for 2019-nCoV testing. Note: Optimum timing for peak viral levels du ring infections caused by 20 19-nCoV have not been determined. Collection of multiple specimens from the same patient may be necessary to detect the virus. Limitations Positive results are indicat milind of active infection with SARS-CoV-2 but do not rule out bacterial infection or co-infection with other viruses. The agent detected may not be the definite cause of diseas e. In addition, detection of viral RNA may not indicate the presence of infectious virus or that SARS-CoV-2 is the causative agent for clinical symptoms. Negative results do not prec lude SARS-CoV-2 infection and should not be used as the sole basis for patient management decisions. Negative results must be combined with clinical observations, patient his tory, and epidemiological in formation. False negative results may also occur if amplification inhibitors are present in the specimen or if inadequate numbers of organisms are present in the specimen. Op timum specimen types and shwetha ing for peak viral levels during infections caused by SARS-CoV-2 have not been fully determined. Collection of multiple specimens (types and time points) from the same patient may be necessary to detect the virus. The test was validated for u se with upper respiratory specimens obtained via nasopharyngeal or oropharyngeal swabs in VTM, UTM, M4, M5, M6, saline, and MTM media. The performance of this test has not be en established for other spe cimens. Specimens collected using other FDA recommended Specimen Collection Materials listed in the FDA COVID-19 [employer] communication (May 29, 2019) are pr ocessed with the caveat that they were not all validated for use with this test and the result must be interpreted in this context. Furthermore, a false negative results may occur if a specimen is improperly collected, transported or handled. If the virus mutates in the RT-PCR target region, SARS-CoV-2 may not be detected or may be detected less predictably. Inhibitors or other types of interference may produce a false negative result. An interference study evaluating the effect of common cold medications was not performed. This test is not FDA-cleared but its performance characteristics were established by our CLIA-certified, CAP-accredited, high complexity laboratory in accordance with CLIA regulations, College of [place] an Pathologists (CAP) guidel claire (May 22, 2019), and FDA guidance (May 03, 2019). This test is only for use un john the Food and Drug Administration's Emergency Use Authorization. Specimen Swab - Entire nasopharynx (body structur e) Performing Organization Address City/State/ZIP Code Phon e Number [facility] [place], [place] COVID-19 TESTING (09/23/2019 8:56 EDT) COVID-19 rt-PCR NEGATIVE Negative [facility] Result Comment: LABORATORY 2019-novel Coronavirus (2019 -nCoV) not detected by the qRT-PCR assay. Consider testing for other respiratory viruses or re-collecting for 2019-nCoV testing. Note: Optimum timing for peak viral levels du ring infections caused by 20 -nCoV have not been determined. Collection of multiple specimens from the same patient may be necessary to detect the virus. Limitations Positive results are indicat milind of active infection with SARS-CoV-2 but do not rule out bacterial infection or co-infection with other viruses. The agent detected may not be the definite cause of diseas e. In addition, detection of viral RNA may not indicate the presence of infectious virus or that SARS-CoV-2 is the causative agent for clinical symptoms. Negative results do not prec lude SARS-CoV-2 infection and should not be used as the sole basis for patient management decisions. Negative results must be combined with clinical observations, patient his tory, and epidemiological in formation. False negative results may also occur if amplification inhibitors are present in the specimen or if inadequate numbers of organisms are present in the specimen. Op timum specimen types and shwetha ing for peak viral levels during infections caused by SARS-CoV-2 have not been fully determined. Collection of multiple specimens (types and time points) from the same patient may be necessary to detect the virus. The test was validated for u with upper respiratory specimens obtained via nasopharyngeal or oropharyngeal swabs in VTM, UTM, M4, M5, M6, saline, and MTM media. The performance of this test has not be en established for other spe cimens. Specimens collected using other FDA recommended Specimen Collection Materials listed in the FDA COVID-19 [employer] communication (May 29, 2019) are pr ocessed with the caveat that they were not all validated for use with this test and the result must be interpreted in this context. Furthermore, a false negative results may occur if a specimen is improperly collected, transported or handled. If the virus mutates in the RT-PCR target region, SARS-CoV-2 may not be detected or may be detected less predictably. Inhibitors or other types of interference may produce a false negative result. An interference study evaluating the effect of common cold medications was not performed. This test is not FDA-cleared but its performance characteristics were established by our CLIA-certified, CAP-accredited, high complexity laboratory in accordance with CLIA regulations, College of [employer] an Pathologists (CAP) guidel claire (May 22, 2019), and FDA guidance (May 03, 2019). This test is only for use un john the Food and Drug Administration's Emergency Use Authorization. Performing Lab [facility] LABORATORY SERVICES Specimen Swab Performing Organization Address City/State/ZIP Code Phon e Number [facility] [address] [place] [address] SERVICES [facility] [place], [place] documented in this encounter Visit Diagnoses Not on filedocumented in this encounter Care Teams Quality Supervisor Relationship Specialty Start Date End Date Unknown, Provider, PCP - General 09/24/09 documented as of this encounter
--- OUTSIDE RECORDS SUMMARY | 2021-12-22 15:38 | XMS_ITS | Clinical Summary ---
:1955 Author Organization [facility] Address [address] [place] [address] Care Team Providers Name Role Phone Unknown, Provider Primary Care Provider Allergies Active Allergy Reactions Severity Noted Date Comments Clonidine Other (See Comments) 04/14/2009 Dry heather th Medications Medication Sig Dispensed Refills Start Date End Date Status ibuprofen (MOTRIN) 200 Take 4 Tabs by 0 Active mg tablet mouth 3 times daily. IPRATROPIUM/ALBUTEROL Inhale 2 Puffs as 0 Active SULFATE (COMBIVENT directed every 4 INHL) hours as needed. beclomethasone (QVAR) Inhale 2 Puffs as 0 Active 80 mcg/Actuation directed 2 times inhaler daily. gabapentin (NEURONTIN) Take 3 Tabs by 0 Active 300 mg tablet mouth 3 times daily. lisinopril (PRINIVIL, Take 20 mg by 0 Active ZESTRIL) 20 mg tablet mouth daily. CALCIUM CARBONATE, Take 1-5 Tabs by 0 Active [id number], (TUMS ORAL) mouth as needed. tramadol (ULTRAM) 50 mg Take 50 mg by 0 Active tablet mouth every 6 hours as needed for Pain. Active Problems Problem Noted Date Hypertensive disorder 04/14/2009 Overview: 09/21/08 Backache 04/14/2009 Overview: 09/21/08 Asthma 04/14/2009 Overview: 09/21/08 Alcohol abuse 04/14/2009 Overview: 09/21/08 Smoking 04/14/2009 Overview: 09/21/08 Obesity 04/14/2009 Overview: 09/21/08 Neck pain 04/14/2009 Overview: 09/21/08 Chronic pain 04/14/2009 Overview: 09/21/08 Hepatitis C antibody test positive 04/14/2009 Overview: Ab pos 10/19/08 Left shoulder pain 04/14/2009 Overview: 01/15/09 Social History Tobacco Use Types Packs/Day Years Used Date Never Assessed Sex Assigned at Date Recorded Not on file Plan of Treatment Health Maintenance Due Date Last Done Comments Fall Risk Screening 05/15/2020 Care Teams Relay Worker Relationship Specialty Start Date End Date Unknown, Provider, PCP - General 09/24/09
--- OUTSIDE RECORDS SUMMARY | 2021-12-22 15:39 | XMS_ITS | Encounter Summary ---
:1955 Author Organization [facility] Address [address] [place] [address] Care Team Providers Name Role Phone Unavailable Primary Care Provider Unavailable Encounter Details Date Type Department Care Team Description 10/01/2007 Hospital Encounter [facility] - Preeti Jensen MD [place] [address] [facility] [address] [place], [place] [id number] [place] [phone] (Wo rk) Social History Tobacco Use Types Packs/Day Years Used Date Never Assessed Sex Assigned at Date Recorded Not on file documented as of this encounter Discharge Disposition Disposition Code Departure Means Destination Auto Discharge documented in this encounter Plan of Treatment Not on filedocumented as of this encounter Visit Diagnoses Not on filedocumented in this encounter
--- OUTSIDE RECORDS SUMMARY | 2021-12-22 15:39 | XMS_ITS | Encounter Summary ---
:1955 Author Organization [facility] Address [address] [place] [address] Care Team Providers Name Role Phone Nisa Lechuga MD Primary Care Provider Unavailable Encounter Details Date Type Department Care Team Description 04/14/2009 Abstract [facility] Ruben Flores, HTN (h ypertension); Orthopedics & PA-C Back pain; [facility] - [address] Asthma; [facility] of Alcohol abuse; [address] [place] Smoking; [place], [place] [address] [place], Obesity; [phone] [place] [address] Neck pain; [phone] (Wo rk) Chronic pain; Hepatitis C antibody test positive; Left shoulder p ain Social History Tobacco Use Types Packs/Day Years Used Date Never Assessed Sex Assigned at Date Recorded Not on file documented as of this encounter Plan of Treatment Not on filedocumented as of this encounter Visit Diagnoses Diagnosis HTN (hypertension) Unspecified essential hypertension Back pain Backache, unspecified Asthma Unspecified asthma Alcohol abuse Alcohol abuse, unspecified Smoking Tobacco use disorder Obesity Obesity, unspecified Neck pain Cervicalgia Chronic pain Other chronic pain Hepatitis C antibody test positive Other and unspecified nonspecific immuno logical findings Left shoulder pain Pain in joint, shoulder region documented in this encounter Historical Medications This list may reflect changes made after this encounter. Medication Sig Dispensed Refills Start Date End Date tramadol (ULTRAM) 50 mg Take 50 mg by mouth 0 tablet every 6 hours as needed for Pain. CALCIUM CARBONATE, [id number], Take 1-5 Tabs by 0 (TUMS ORAL) mouth as needed. lisinopril (PRINIVIL, Take 20 mg by mouth 0 ZESTRIL) 20 mg tablet daily. gabapentin (NEURONTIN) 300 Take 3 Tabs by mouth 0 mg tablet 3 times daily. beclomethasone (QVAR) 80 Inhale 2 Puffs as 0 mcg/Actuation inhaler directed 2 times daily. IPRATROPIUM/ALBUTEROL Inhale 2 Puffs as 0 SULFATE (COMBIVENT INHL) directed every 4 hours as needed. ibuprofen (MOTRIN) 200 mg Take 4 Tabs by mouth 0 tablet 3 times daily. added in this encounter Care Teams Loom Operator Apprentice Relationship Specialty Start Date End Date Nisa Lechuga MD PCP - General 01/26/09 09/23/[address] [facility] [address] [place] [address] documented as of this encounter
--- OUTSIDE RECORDS SUMMARY | 2021-12-22 15:39 | XMS_ITS | Encounter Summary ---
:1955 Author Organization [facility] Address [address] [place] [address] Care Team Providers Name Role Phone Unavailable Primary Care Provider Unavailable Encounter Details Date Type Department Care Team Description 09/24/2007 Before [facility] - Rena Jensen MD Converted Visit [place] conversion [address] ([place]) [address] [place] [address] [place], [place] [phone] (Wo rk) Social History Tobacco Use Types Packs/Day Years Used Date Never Assessed Sex Assigned at Date Recorded Not on file documented as of this encounter Consult Notes [place], [employer] - 11/30/2008 1346 EDT DIVISION OF PAIN MANAGEMENT CONSULTATION - 09/24/2007 HISTORY OF PRESENT ILLNESS The patient is a 52-year-old male seen in consultation at the request of Dr. Nisa Lechuga for a primary complaint of low back pain and a new complaint of right lower extremity pain. The patient describes a long history of low back pain that has been present for four hours since he fell off a deck and pulled several muscles and developed a disk herniation in his back. At that time, he received a series of exercises to perform from physical therapy. He received three epidurals and experienced prettygood pain relief for three to four months and didextremely well. In the last six months, however, hesuddenly began to develop a burning pain in his right leg. He describes the pain as starting in his right posterior hip and buttock, radiating along his posterior thigh and into the lateral calf. He isprimarily irritated by a severe burning sensation in his lateral right calf. He describes that pain as intermittent. It is hot, stabbing, burning and shooting. He also describes his low back pain as constant and as a pressure sensation in the middle of hisback as though he had been kicked or was very sore there. He has an additional complaint of occasional pain in his left buttock, but it is just in the buttock location and it alternates between the right and this location. Occasionally, it is present in both locations. His pain worsens primarily with walking, particularly his right leg pain, and decreases mildly with curling up, lying down or a hot shower is particularly helpful. For his pain, he has been taking Elavil primarily to help him sleep and he feels his right leg pain might have worsened a little since he has gone off the Elavil. He also takes Vicodin one in the morning and two at night, ibuprofen 800 mg at noon, Flexeril 10 mg once to twice a day, and feels that allof these are somewhat helpful, but that his pain is still severe and he would like it to go away. Hedenies weakness or changes to bowel or bladder function. He has been having difficulty urinating, but this has improved since he has been off his Elavil. He denies any other changes to bowel or bladderfunction or weakness. He does describe waking up continuously from pain. ALLERGIES No known drug allergies. CURRENT MEDICATIONS 1. Neurontin 900 mg three times a day. 2. Lisinopril 10 mg. 3. Vicodin 5/500 mg three per day. 4. Clonidine 0.1 mg at night. 5. Ibuprofen 800 mg at noon. 6. Flexeril 10 mg twice a day. 7. A respiratory inhaler as well as Combivent. 8. Colace. 9. Metamucil. 10. MOM. PAST MEDICAL HISTORY Significant for recent onset of asthma or COPD (he is unsure which), hypertension, GERD, possible prostrate problems (he denies this being checked), hepatis C, and urinary difficulty. PAST SURGICAL HISTORY Negative. He has not had any surgeries in the past. FAMILY HISTORY Negative for any health problems that run in his family. SOCIAL HISTORY He is single. He has two children. He is currently incarcerated after a DUI. He usually smokes 1/2 pack per day of cigarettes, but has not been doing this recently. 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 He does describe a problem with alcohol, for which he is incarcerated. He denies any sort of drug abuse or problems with any other medications. REVIEW OF SYSTEMS No current infections, fevers, chills, shortness of breath, chest pain, palpitation, changes to bowel or bladder function or bleeding abnormalities. PHYSICAL EXAMINATION The patient is 5 feet 11 inches tall and weighs 230 pounds. Blood pressure 158/101, heart rate 88, respiratory rate 14, temperature 98.1. He appears appropriate during the visit.He is able to stand andwalk with a mildly stiff gait, but no visible abnormalities. He can stand on toes and heels and describes increased discomfort standing on heels, but is able to do so without difficulty. He can forwardflex completely and touch thefloor, with a reproduction of his pain more than with back extension. Back rotation does not reproduce any of his discomfort. Cranial nerves II-XII are grossly intact. He has full range of motion of his upper extremities. Head flexion reproduces mid neckpain, as does rotation to the right. Strength, sensation and range of motion are intact in his upper extremities. Deep tendon reflexes are +2, equal and symmetrical throughout upper and lower extremities. On lower extremity examination, straight leg raiseis negative bilaterally. He does describe midline back pain with a leg extension of 80 degrees of both legs. Strength in grossly intact. He describes mild hypoesthesia along the posterior right thigh near the knee, compared to the right, but no other abnormalities. Paraspinal palpation at the lumbosacral junction particularly reproduces his back pain more than spinal palpation. He has mild trigger points primarily over the quadratus lumbaris muscle. There is tenderness to palpation over his left sacroiliacjoint; this, however, does not reproduce his usual symptoms. There are no other abnormalities. STUDIES The patient has had a lumbar MRI in June 2004, which was significant for moderate disk protrusion at L3-4 and a very central disk protrusion at L4-5, marked degenerative changes to the lower facet joints, and significant hypertrophic and cystic changes as well as osteophytes to the lumbar vertebral bodies. ASSESSMENT Positive for lumbar spondylosis with facet arthropathy, right lumbar neuralgia in a right L5-S1 distribution, but no acute radicular signs, and mild stenosis. Exam is also consistent with lumbar facet arthropathy. RECOMMENDATIONS 1. Injections: The patient may certainly return to clinic for a right L5-S1 transforaminal epidural steroid injection for assistance with his right leg pain. There is a possibility this would not be helpful for his back pain, however, and this was discussed with him. For patientmid low back pain, it ap pears to be facet-mediated. If it worsens, intraarticular facet steroid injections could be trialed. 2. Regarding medications, for patients lumbar facet arthropathy, I recommend a combination of nonsteroidal antiinflammatories, muscle relaxants, and physical therapy for assistance with stretching and strengthening exercises for both flexibility and strengthening of the trunk musculature. This was discussed with patient, as he is currently receiving this treatment minus the physical therapy. For his right lower extremity pain, an epidural will be scheduled at [facility]. Another medication that is helpful for this includes Neurontin, which he is currently taking, and some antidepressants. Currently, he seems to be doing well with his current medications in this regard. 3. The chronic nature of his pain was discussed with patient at length. Options were discussed. He does have an additional component of myofascial pain and physical therapy would certainly be helpful for this as well. 4. Should his back acutely worsen, intraarticular facet injection could be tried. All questions were answered at this point. The patient was discharged in stable condition. He was somewhat disappointed that injection would not be performed today, but this will be scheduled at the next available appointment. Signed by Rena Jensen MD 09/30/2007 12:43 Rena Jensen MD - Rena Jensen MD - [facility] Job ID: [id number] Doc ID: [id number] cc: Nisa Lechuga MD documented in this encounter Plan of Treatment Not on filedocumented as of this encounter Visit Diagnoses Not on filedocumented in this encounter
--- OUTSIDE RECORDS SUMMARY | 2021-12-22 15:39 | XMS_ITS | Encounter Summary ---
:1955 Author Organization [facility] Address [address] [place] [address] Care Team Providers Name Role Phone Unavailable Primary Care Provider Unavailable Encounter Details Date Type Department Care Team Description 09/24/2007 Hospital Encounter [facility] - Preeti Jensen MD [place] conversion [address] [facility] [address] [place], [place] [id number] [place] [phone] (Wo rk) Social History Tobacco Use Types [...]
[2021-12-22 19:11] LABS: Anion Gap 10.8 mmol/L (3-11); BUN 14 mg/dL (7-18); CO2 24.2 mmol/L (21.0-32.0); CREATININE 1.5 mg/dL (0.70-1.30); Calcium 9.3 mg/dL (8.5-10.1); Chloride 98 mmol/L (98-107); Estimated GFR 51.03 (mL/min/1.73m2); Glucose 90 mg/dL (74-106); Potassium 4.1 mmol/L (3.5-5.1); Sodium 133 mmol/L (136-145)
== END 2021-12-22 15:27 | disposition home or self-care (01) ==
LOC: NCHCN 15:26
PROVIDERS: PCP Family Medicine; Visit Provider Family Medicine
DX: I48.91 Unspecified atrial fibrillation (principal); I50.9 Heart failure, unspecified
CPT/HCPCS: 80048

== ENCOUNTER 2022-01-04 14:28 | Outpatient (CLI) | payer MEDICARE, MEDICAID, SELFPAY ==
--- NOTE | 2022-01-04 14:15 | DI.RAD_ITS ---
Exam(s) XR CLAVICLE RT EXAM: XR CLAVICLE RT INDICATION: right clavicle f/u. COMPARISON: CR XR SHOULDER LT COMPLETE 2+V from 11/24/2021 CR XR PORTABLE CHEST AP from 11/25/2021 CR,XR XR SHOULDER RT COMPLETE 2+V from 11/26/2021 TECHNIQUE: 2D digital imaging was performed. Two views. FINDINGS: There has been some interval healing of the distal clavicle fracture when compared with the previous exam. There is increased soft tissue calcification beneath the level of the clavicle. DATA REPOSITORY: RADIATION DOSE DELIVERED:
--- NOTE | 2022-01-04 14:15 | DI.RAD_ITS ---
Exam(s) XR SHOULDER LT COMPLETE 2+V EXAM: XR SHOULDER LT COMPLETE 2+V INDICATION: left proximal hunerus f/u. COMPARISON: CT CT UPPER EXTREMITY LT WO from 11/11/2021 CR XR SHOULDER LT COMPLETE 2+V from 11/14/2021 CR XR SHOULDER LT COMPLETE 2+V from 11/24/2021 CR XR PORTABLE CHEST AP from 11/25/2021 CR,XR XR SHOULDER RT COMPLETE 2+V from 11/26/2021 TECHNIQUE: 2D digital imaging was performed. Two views. FINDINGS: AP view is somewhat suboptimally positioned. There is overlap of the shoulder with the ribs. There has been no change in the reverse shoulder prosthesis given differences in projection. There is incr eased calcification in the soft tissues around the shoulder. DATA REPOSITORY: RADIATION DOSE DELIVERED:
== END 2022-01-04 14:29 | disposition home or self-care (01) ==
LOC: DIORS 14:29
PROVIDERS: PCP Family Medicine; Referring Provider Family Medicine; Visit Provider Student in an Organized Health Care Education/Training Program
DX: S42.001D Fracture of unspecified part of right clavicle, subsequent encounter for fracture with routine healing; X58.XXXD Exposure to other specified factors, subsequent encounter; Z96.612 Presence of left artificial shoulder joint
CPT/HCPCS: 73000; 73030

== ENCOUNTER 2022-01-25 10:48 | Outpatient (CLI) | payer MEDICARE, MEDICAID, SELFPAY ==
--- NOTE | 2022-01-25 09:45 | DI.RAD_ITS ---
Exam(s) XR SHOULDER LT COMPLETE 2+V EXAM: XR SHOULDER LT COMPLETE 2+V CLINICAL HISTORY: LEFT SHOULDER F/U. TECHNIQUE: 2D digital imaging was performed of the left shoulder. Two images were obtained. AP and Y views were obtained. COMPARISON: CR XR SHOULDER LT COMPLETE 2+V from 01/04/2022 FINDINGS: BONES: No acute fracture is present. No bony destructive lesion is seen. JOINTS: No dislocation present. There are stable postsurgical changes of a left total reverse shoulde r replacement. SOFT TISSUE: Normal. IMPRESSION: Stable postsurgical changes of the left shoulder. DATA REPOSITORY: RADIATION DOSE DELIVERED:
== END 2022-01-25 10:49 | disposition home or self-care (01) ==
LOC: DIORS 10:49
PROVIDERS: PCP Family Medicine; Referring Provider Family Medicine; Visit Provider Student in an Organized Health Care Education/Training Program
DX: S42.202D Unspecified fracture of upper end of left humerus, subsequent encounter for fracture with routine healing (principal); X58.XXXD Exposure to other specified factors, subsequent encounter; Z98.890 Other specified postprocedural states
CPT/HCPCS: 73030

== ENCOUNTER → 2022-04-25 14:00 | Outpatient (BNVA) | payer MEDICARE, MEDICAID, SELFPAY | PROVIDERS: PCP Family Medicine; Visit Provider Student in an Organized Health Care Education/Training Program ==

== ENCOUNTER 2022-07-05 01:54 | Outpatient (CLI) | payer MEDICARE, MEDICAID, SELFPAY | END 2022-07-05 02:14 | PROVIDERS: PCP Family Medicine; Visit Provider Family Medicine | CPT/HCPCS: 99214 ==

== ENCOUNTER 2022-07-05 13:35 | Outpatient (CLI) | payer MEDICARE, MEDICAID, SELFPAY ==
--- NOTE | 2022-07-05 13:00 | DI.RAD_ITS ---
Exam(s) XR CLAVICLE RT EXAM: XR CLAVICLE RT CLINICAL HISTORY: left shoulder pain TECHNIQUE: 2D digital imaging was performed of the right clavicle. Two images were obtained. AP and axial views were obtained. COMPARISON: CR XR CLAVICLE RT from 01/04/2022 FINDINGS: BONES: There does not appear to be any significant change in alignment of the comminuted fracture of the distal right clavicle. No new fracture is identified. No bony destructive lesion is seen. JOINTS: No dislocation present. SOFT TISSUE: Normal IMPRESSION: Distal right clavicular fracture. DATA REPOSITORY: RADIATION DOSE DELIVERED:
--- NOTE | 2022-07-05 13:00 | DI.RAD_ITS ---
Exam(s) XR SHOULDER LT COMPLETE 2+V EXAM: XR SHOULDER LT COMPLETE 2+V CLINICAL HISTORY: clavicle fx f/u. TECHNIQUE: 2D digital imaging was performed. Two images were obtained. AP and Y views were obtained . COMPARISON: CR XR SHOULDER LT COMPLETE 2+V from 01/25/2022 FINDINGS: BONES: There are stable post operative changes present. No acute fracture or dislocation. JOINTS: The orthopedic hardware is in good position. No evidence of hardware loosening. SOFT TISSUE: Normal. IMPRESSION: Stable postoperative changes. DATA REPOSITORY: RADIATION DOSE DELIVERED:
== END 2022-07-05 13:36 | disposition home or self-care (01) ==
LOC: DIORS 13:36
PROVIDERS: PCP Family Medicine; Referring Provider Family Medicine; Visit Provider Student in an Organized Health Care Education/Training Program
DX: S42.001D Fracture of unspecified part of right clavicle, subsequent encounter for fracture with routine healing (principal); M89.8X1 Other specified disorders of bone, shoulder; W19.XXXD Unspecified fall, subsequent encounter; Z96.612 Presence of left artificial shoulder joint
CPT/HCPCS: 99214; 73000; 73030

== ENCOUNTER 2022-09-15 15:16 | Outpatient (REF) | payer MEDICARE, MEDICAID, SELFPAY ==
[2022-09-15 15:41] LABS: HCT 44.4 % (40.0-50.0); HGB 14.5 g/dL (13.5-17.5); MCH 29.5 pg (27.0-33.0); MCHC 32.7 % (32.0-36.0); MCV 90 fL (80-95); MPV 10.7 fL (8.0-11.0); Platelet Count 337 10^3/uL (130-400); RBC 4.92 10^6/uL (4.36-5.78); RDW-SD 53.4 fL; WBC 8.22 10^3/uL (4.4-10.8)
[2022-09-15 15:55] LABS: Iron 122 ug/dL (65-175)
[2022-09-15 15:57] LABS: ALT 20 U/L (16-63); AST 22 U/L (15-37); Albumin 3.6 g/dL (3.4-5.0); Alkaline Phosphatase 85 U/L (46-116); BUN 14 mg/dL (7-18); Bilirubin, Total 0.3 mg/dL (0.2-1.0); CREATININE 1.5 mg/dL (0.70-1.30); Calcium 9.3 mg/dL (8.5-10.1); Chloride 103 mmol/L (98-107); Estimated GFR 50.71 (mL/min/1.73m2); Glucose 86 mg/dL (74-106); Potassium 5.1 mmol/L (3.5-5.1); Sodium 139 mmol/L (136-145); Total Protein 7.5 g/dL (6.4-8.2)
== END 2022-09-15 15:17 | disposition home or self-care (01) ==
LOC: NCHCN 15:16
PROVIDERS: PCP Family Medicine; Visit Provider Family Medicine
DX: I50.9 Heart failure, unspecified (principal); N28.9 Disorder of kidney and ureter, unspecified; Z86.2 Personal history of diseases of the blood and blood-forming organs and certain disorders involving the immune mechanism
CPT/HCPCS: 80053; 85027; 83540

== ENCOUNTER 2023-02-06 20:19 | Emergency (ER) | payer MEDICARE, MEDICAID, SELFPAY ==
[2023-02-06 20:22] VITALS: BP 137/96; PULSE 70; RESP 20; O2SAT 96
[2023-02-06 20:23] VITALS: BP 137/96; PULSE 75
--- NOTE | 2023-02-06 20:31 | ED.GENADUL_ITS ---
Discharge Plan Disposition Patient Disposition: Home Condition: Improving Discharge Details Clinical Impression: Acute anterior epistaxis Primary Care Provider: Sherri Guzman V ED Provider: Nelli Gama Home Meds and New Rx's Prescriptions: No Action vitamin B complex Tablet 1 tab PO DAILY spironolactone 25 mg tablet 25 mg PO DAILY Cerovite Senior 0.4 mg-300 mcg- 250 mcg tablet 1 tab PO DAILY Bevespi Aerosphere 9-4.8 mcg HFA aerosol inhaler 2 puff inhalation BID hydrocodone-acetaminophen 10-325 mg tablet 1 tab PO BID metoprolol succinate 50 mg tablet extended release 24 hr 25 mg PO BID aspirin 81 mg Tablet,Delayed Release (Dr/Ec) 81 mg PO DAILY cyclobenzaprine 10 mg Tablet 10 mg PO TID PRN PRN bupropion HCl 150 mg Tablet Sustained-Release 12 Hr 150 mg PO BID citalopram 20 mg Tablet 20 mg PO QAM gabapentin 800 mg Tablet 800 mg PO TID albuterol sulfate 90 mcg/actuation Hfa Aerosol Inhaler 2 puff INHALATION Q6H PRN PRN diclofenac sodium 1 % Gel 4 g TOPICAL BID PRN PRN Bevespi Aerosphere 9-4.8 mcg Hfa Aerosol Inhaler 2 puff INHALATION BID verapamil 120 mg Tablet Extended Release 120 mg PO DAILY sumatriptan succinate 25 mg Tablet See Rx Instructions .ROUTE .COMPLEX Patient Comments: Pt reports last use sometime over the summer Rx Instructions: Pt unable to confirm strength of sumatriptan- si tab po at onset of h eadache, if no relief may repeat 1 tab after at least 2 hours, max 4 tabs/24 hours triamcinolone acetonide 0.1 % Cream 1 applic TOPICAL BID Patient Comments: Pt has discontinued medication but has on hand in case he needs in the future magnesium oxide 400 mg (241.3 mg magnesium) Tablet 400 mg PO DAILY terazosin 2 mg Capsule 2 mg PO QHS pantoprazole 40 mg Tablet,Delayed Release (Dr/Ec) 40 mg PO DAILY topiramate 50 mg Tablet 50 mg PO BID zolpidem 10 mg Tablet 10 mg PO QHS PRN (Reason: Insomnia) albuterol sulfate 2.5 mg /3 mL (0.083 %) Solution For Nebulization 2.5 mg UPD Q2H PRN PRNQty: 0 0RF ipratropium-albuterol 0.5 mg-3 mg(2.5 mg base)/3 mL Solution For Nebulization 3 ml UPD Q6H Qty: 0 0RF polyethylene glycol 3350 17 gram Powder In Packet 17 g PO DAILY PRN PRN (Reason: Constipation) Qty: 0 0RF guaifenesin [Mucus Relief ER] 600 mg Tablet Extended Release 12hr 600 mg PO BID Qty: 0 0RF Discharge Instructions Instructions: Nosebleed (ED) Additional Instructions: Please keep the nasal tampon or the Rhino Rocket in your nose. You may tape the little plastic part onto your face. Do not to blow your nose or pick at the tampon. Please return to the ER if worsening bleeding, nausea vomiting, if you are coughing up multiple large clots or concerns. Please follow-up with ear nose and throat doctor within the next 24 to 48 hours. You may call them in the morning. Return to the ER for any feeling as if you are going to faint. Do not eat anything extremely hot it will make your nosebleed more. Referrals: River Bhatti MD [ [facility] STAFF PHYSICIAN] - 2 days Medical Decision Making 67-year-old male presents to the ER with chief complaint of epistaxis and nosebleed which began at 1700 today. EMS reports there was blood clots on scene. He has had a similar episode approximately 5 years in the past where he had to have cauterization. He denies being on blood thinners. He does take aspirin daily and high blood pressure medication. Upon arrival he is hemodynamically stable alert and oriented. Bleeding is con trolled with pressure. He denies any headache, trauma. Work-up ordered including CBC CMP, PT PTT, phenylephrine silver nitrate and suction. 2253: Patient reevaluation is bleeding is controlled at this time. He does have a little bit of light pink drip anteriorly from the left nare. We will leave Rhino Rocket in until follow-up with ENT or return to the ER for follow-up. CBC shows white blood cell count of 13.22, RBCs 4.28 hemoglobin 13 hematocrit 40.2 sodium slightly low at 133. Bilirubin 1.4. This text was generated using Heliatekation system, please disregard any oddities of phrase or misspellings. Patient remained hemodynamically stable throughout the remainder of her stay, blood pressures improved. Discussed strict return instructions. Lab Data Lab results reviewed: Yes I reviewed the patient's lab results. Labs: Laboratory Tests Range/Units 02/06/23 02/06/23 02/06/23 20:29 20:30 21:25 WBC Cancelled RBC Cancelled Hgb Cancelled Hct Cancelled MCV Cancelled MCH Cancelled MCHC Cancelled RDW Cancelled Plt Count Cancelled MPV Cancelled Immature Gran % Cancelled Neutrophils % Cancelled Band Neutrophils % Cancelled Lymphocytes % Cancelled Atypical Lymphs % Cancelled Monocytes % Cancelled Eosinophils % Cancelled Basophils % Cancelled Metamyelocytes % Cancelled Myelocytes % Cancelled Promyelocytes % Cancelled Other Cells % Cancelled Nucleated RBC % Cancelled Absolute Neutrophils Cancelled Absolute Lymphocytes Cancelled Absolute Monocytes Cancelled Absolute Eosinophils Cancelled Absolute Basophils Cancelled RBC Morphology Cancelled Polychromasia Cancelled Hypochromasia Cancelled Poikilocytosis Cancelled Basophilic Stippling Cancelled Anisocytosis Cancelled Microcytosis Cancelled Macrocytosis Cancelled Spherocytes Cancelled Tear Drop Cells Cancelled Ovalocytes Cancelled Stomatocytes Cancelled Torres-Helper Bodies Cancelled Akbar Cells/Echinocytes Cancelled Acanthocytes (Spur) Cancelled Schistocytes Cancelled PT Cancelled INR Cancelled APTT Cancelled Sodium (136-145) mmol/L 133 L Potassium (3.5-5.1) mmol/L 4.3 Chloride (98-107) mmol/L 98 Carbon Dioxide (21.0-32.0) mmol/L 24.6 Anion Gap (3-11) mmol/L 10.4 BUN (7-18) mg/dL 18 Creatinine (0.70-1.30) mg/dL 1.3 Est GFR (CKD-EPI 2020) (mL/min/1.73m2) 60.21 Glucose (74-106) mg/dL 96 Calcium (8.5-10.1) mg/dL 9.5 Magnesium Cancelled Total Bilirubin (0.2-1.0) mg/dL 1.4 H AST (15-37) U/L 31 ALT (16-63) U/L 32 Alkaline Phosphatase (46-116) U/L 111 Total Protein (6.4-8.2) g/dL 8.7 H Albumin (3.4-5.0) g/dL 3.8 Range/Units 02/06/23 22:02 WBC 13.22 H RBC 4.28 L Hgb 13.0 L Hct 40.2 MCV 94 MCH 30.4 MCHC 32.3 RDW 15.4 H Plt Count 244 MPV 10.5 Immature Gran % 0.7 Neutrophils % 76.0 Band Neutrophils % Lymphocytes % 10.7 Atypical Lymphs % Monocytes % 10.8 Eosinophils % 1.1 Basophils % 0.7 Metamyelocytes % Myelocytes % Promyelocytes % Other Cells % Nucleated RBC % 0.0 Absolute Neutrophils 10.05 H Absolute Lymphocytes 1.41 Absolute Monocytes 1.43 H Absolute Eosinophils 0.15 Absolute Basophils 0.09 RBC Morphology Polychromasia Hypochromasia Poikilocytosis Basophilic Stippling Anisocytosis Microcytosis Macrocytosis Spherocytes Tear Drop Cells Ovalocytes Stomatocytes Torres-Helper Bodies Akbar Cells/Echinocytes Acanthocytes (Spur) Schistocytes PT INR APTT Sodium (136-145) mmol/L Potassium (3.5-5.1) mmol/L Chloride (98-107) mmol/L Carbon Dioxide (21.0-32.0) mmol/L Anion Gap (3-11) mmol/L BUN (7-18) mg/dL Creatinine (0.70-1.30) mg/dL Est GFR (CKD-EPI 2020) (mL/min/1.73m2) Glucose (74-106) mg/dL Calcium (8.5-10.1) mg/dL Magnesium Total Bilirubin (0.2-1.0) mg/dL AST (15-37) U/L ALT (16-63) U/L Alkaline Phosphatase (46-116) U/L Total Protein (6.4-8.2) g/dL Albumin (3.4-5.0) g/dL HPI General Mode of arrival: EMS . Date/Time Provider Initiated Documentation: 02/06/23 20:29 . Limitations to Documentation: no limitations . Information obtained by: patient, EMS and old records reviewed . HPI Narrative: 67-year-old male presents to the ER with chief complaint of epistaxis and nosebleed which began at 1700 today. EMS reports there was blood clots on scene. He has had a similar episode approximately 5 years in the past where he had to have cauterization. He denies being on blood thinners. He does take aspirin daily and high blood pressure medication. Upon arrival he is hemodynamically stable alert and oriented. Bleeding is controlled with pressure. He denies any headache, trauma. Related Data Home Medications Medication Instructions Recorded Confirmed aspirin 81 mg tablet,delayed 81 mg PO DAILY 01/22/20 07/05/22 release albuterol sulfate 90 mcg/actuation 2 puff inhalation Q6H PRN PRN 11/23/21 07/05/22 aerosol inhaler bupropion HCl 150 mg tablet,12 hr 150 mg PO BID 11/23/21 07/05/22 sustained-release citalopram 20 mg tablet 20 mg PO QAM 11/23/21 07/05/22 cyclobenzaprine 10 mg tablet 10 mg PO TID PRN PRN 11/23/21 07/05/22 diclofenac sodium 1 % topical gel 4 g topical BID PRN PRN 11/23/21 07/05/22 gabapentin 800 mg tablet 800 mg PO TID 11/23/21 07/05/22 glycopyrrolate 9 mcg-formoterol 2 puff inhalation BID 11/23/21 07/05/22 4.8 mcg HFA aerosol inhaler (Bevespi Aerosphere) magnesium oxide 400 mg (241.3 mg 400 mg PO DAILY 11/23/21 07/05/22 magnesium) tablet pantoprazole 40 mg tablet,delayed 40 mg PO DAILY 11/23/21 07/05/22 release sumatriptan succinate 25 mg tablet See Rx Instructions .Route .COMPLEX 11/23/21 07/05/22 terazosin 2 mg capsule 2 mg PO QHS 11/23/21 07/05/22 topiramate 50 mg tablet 50 mg PO BID 11/23/21 07/05/22 triamcinolone acetonide 0.1 % 1 applic topical BID 11/23/21 07/05/22 topical cream verapamil 120 mg tablet,extended 120 mg PO DAILY 11/23/21 07/05/22 release zolpidem 10 mg tablet 10 mg PO QHS PRN Insomnia 11/23/21 07/05/22 albuterol sulfate 2.5 mg/3 mL 2.5 mg (3 mL) UPD Q2H PRN PRN #0 mL 11/29/21 07/05/22 (0.083 %) solution for nebulization guaifenesin 600 mg tablet, 600 mg PO BID #0 tabs 11/29/21 07/05/22 extended release 12 hr (Mucus Relief ER) ipratropium 0.5 mg-albuterol 3 mg 3 ml UPD Q6H #0 mL 11/29/21 07/05/22 (2.5 mg base)/3 mL nebulization soln polyethylene glycol 3350 17 gram 17 g PO DAILY PRN PRN Constipation 11/29/21 07/05/22 oral powder packet #0 ea glycopyrrolate 9 mcg-formoterol 2 puff inhalation BID 12/27/21 07/05/22 4.8 mcg HFA aerosol inhaler (Bevespi Aerosphere) hydrocodone 10 mg-acetaminophen 1 tab PO BID 12/27/21 07/05/22 325 mg tablet metoprolol succinate 50 mg 25 mg PO BID 12/27/21 07/05/22 tablet,extended release 24 hr pqqihaoj-won-dnuus acid 0.4 1 tab PO DAILY 12/27/21 07/05/22 mg-lycopene 300 mcg-lutein 250 mcg tablet (Cerovite Senior) spironolactone 25 mg tablet 25 mg PO DAILY 12/27/21 07/05/22 vitamin B complex 1 tab PO DAILY 12/27/21 07/05/22 Previous Rx's Medication Instructions Recorded albuterol sulfate 2.5 mg/3 mL 2.5 mg (3 mL) UPD Q2H PRN PRN #0 mL 11/29/21 (0.083 %) solution for nebulization guaifenesin 600 mg tablet, 600 mg PO BID #0 tabs 11/29/21 extended release 12 hr (Mucus Relief ER) ipratropium 0.5 mg-albuterol 3 mg 3 ml UPD Q6H #0 mL 11/29/21 (2.5 mg base)/3 mL nebulization soln polyethylene glycol 3350 17 gram 17 g PO DAILY PRN PRN Constipation 11/29/21 oral powder packet #0 ea Allergies Allergy/AdvReac Type Severity Reaction Status Date / Time amlodipine Allergy Unknown Unverified 07/05/22 13:03 trazodone Allergy Unknown Unverified 07/05/22 13:03 budesonide [From Pulmicort] Allergy Verified 07/05/22 13:03 diazepam AdvReac Intermediate Agitation Unverified 07/05/22 13:03 clonidine AdvReac Mild Dry mouth Unverified 07/05/22 13:03 lisinopril AdvReac Mild Cough Unverified 07/05/22 13:03 losartan AdvReac Mild Cough Unverified 07/05/22 13:03 tramadol AdvReac Nauseous Unverified 07/05/22 13:03 General Stated Complaint: Epistaxis DAYSI: 3 Review of Systems All systems reviewed & are unremarkable except as noted in HPI and below Constitutional Constitutional: Denies headache(s) ENT Ears, Nose, Mouth, and Throat: Reports as per HPI, Denies dental pain, Denies headache(s) and Reports epistaxis Neurologic Neurologic: Denies headache(s) [facility] All Active Problems (Updated 02/06/23 @ 22:59 by Nelli Gama NP) Acute anterior epistaxis (Acute) Closed right clavicular fracture (Acute ~11/2021) Right shoulder pain (Acute) CHF (congestive heart failure) (Chronic) No-show for appointment (Acute) Left leg weakness (Acute) MCL sprain of right knee (Acute) Alcohol abuse (Chronic) Chest discomfort (Chronic) Acute on chronic diastolic heart failure (Acute) Bilateral pleural effusion (Acute) Falls (Acute) Pulmonary nodule (Acute) Acute respiratory failure with hypoxia (Acute) Pneumonia (Acute) Acute respiratory distress (Acute) Femur fracture, right (Acute) Fracture, rib (Acute) A-fib (Chronic) Laceration of digital nerve of left thumb (Acute) Gastritis and duodenitis (Acute) Medical History (Updated 02/06/23 @ 22:59 by Nelli Gama NP) Tobacco use Back pain Obesity Chronic pain Asthma Adjustment disorder Pain in left wrist Right hip pain Insomnia Medication monitoring encounter History of depression Opioid withdrawal Cataract Blurred vision Patella-femoral syndrome Trochanteric bursitis Knee pain, right Rib pain Hx of viral pneumonia Lumbar radiculopathy Cocaine abuse Lightheadedness Abdominal pain in male Positive urine drug screen Dyspnea on exertion Voiding dysfunction Clavicle pain Hepatitis C Per H&P: s/p tx. . He had an abc CT earlier this year which showed a normal liver. Arthritis Neck fracture Per pt. states he broke his nevk 5-6 years ago. 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) As treatment for proximal humerus fx (DOI: 11/11/2021) History of surgery on wrist History of cataract surgery History of cataract surgery History of hand surgery Social History Smoking/Tobacco Use Status: Current every day Tobacco Type: cigarettes Smoking risk assessment performed?: Yes Alcohol Intake: current Alcohol Intake frequency: a few times a week Drug use: Never Substance use type: does not use and unknown Current gender identity: male Do you feel safe at home: Yes Do you feel safe in your relationship?: Yes Additional Social history: lives alone Exam HENMT Head: normal to inspection, atraumatic and No periorbital ecchymosis General nose exam: external nose normal and epistaxis on the left (Nasal turbinates slightly boggy on the left, no active visualized source.) active bleeding and source not visualized Throat: posterior oropharynx normal Course Vital Signs Vital signs: Vital Signs Pulse 70 02/06/23 20:22 Respiratory Rate 20 02/06/23 20:22 Blood Pressure 137/96 H 02/06/23 20:22 Pulse Oximetry 96 02/06/23 20:22 Pulse 70 02/06/23 20:22 Respiratory Rate 20 02/06/23 20:22 Blood Pressure 137/96 H 02/06/23 20:22 Blood Pressure Position Sitting 02/06/23 20:22 Pulse Oximetry 96 02/06/23 20:22 Oxygen Delivery Method Room Air 02/06/23 20:22 Oxygen Flow Rate 0 02/06/23 20:22 Pain Level 8 02/06/23 20:22 Procedures Epistaxis Control Time Out Performed: Yes Nostril: left Nose Prepped With: phenylephrine and other (TXA soaked RhinoRocket) Direct Inspection: unable to visualize Clots Removed by: blowing nose and manually Cautery Used: none Device Inserted: nasal tampon (4.5 cm ) Device Size: 4 Patient Tolerated Procedure: well Complications: pain
[2023-02-06] MEDS: Phenylephrine SPRAY 1% 15 ML BTL (20:45)
[2023-02-06] MEDS: Silver Nitrate Stick 1 EACH (20:45)
[2023-02-06] MEDS: Tranexamic Acid 1,000 MG/10 ML VIAL 1000 MG (20:45)
[2023-02-06] MEDS: HYDROcodone 5/Acetaminophen 325 TAB PO (21:17)
[2023-02-06 22:05] LABS: ALT 32 U/L (16-63); AST 31 U/L (15-37); Albumin 3.8 g/dL (3.4-5.0); Alkaline Phosphatase 111 U/L (46-116); Anion Gap 10.4 mmol/L (3-11); BUN 18 mg/dL (7-18); Bilirubin, Total 1.4 mg/dL (0.2-1.0); CO2 24.6 mmol/L (21.0-32.0); CREATININE 1.3 mg/dL (0.70-1.30); Calcium 9.5 mg/dL (8.5-10.1); Chloride 98 mmol/L (98-107); Estimated GFR 60.21 (mL/min/1.73m2); Glucose 96 mg/dL (74-106); Potassium 4.3 mmol/L (3.5-5.1); Sodium 133 mmol/L (136-145); Total Protein 8.7 g/dL (6.4-8.2)
[2023-02-06 22:08] LABS: Abs Immature Grans 0.09 10^3/uL (0.0-0.06); Absolute Basophil Count 0.09 10^3/uL (0.0-0.2); Absolute Eosinophil Count 0.15 10^3/uL (0.0-0.7); Absolute Lymphocyte Count 1.41 10^3/uL (1.2-3.4); Absolute Monocyte Count 1.43 10^3/uL (0.1-0.8); Absolute Neutrophil Count 10.05 10^3/uL (1.2-6.7); Basophils % 0.7; Eosinophils % 1.1; HCT 40.2 % (40.0-50.0); Immature Grans % 0.7; Lymphocytes % 10.7; MCH 30.4 pg (27.0-33.0); MCHC 32.3 % (32.0-36.0); MCV 94 fL (80-95); MPV 10.5 fL (8.0-11.0); Monocytes % 10.8; Platelet Count 244 10^3/uL (130-400); RBC 4.28 10^6/uL (4.36-5.78); RDW 15.4 % (11.8-14.1); RDW-SD 52.7 fL; WBC 13.22 10^3/uL (4.4-10.8)
[2023-02-06 22:57] VITALS: BP 124/78; PULSE 86; RESP 18; O2SAT 99
--- NOTE | 2023-02-07 07:52 | NUR.NOTE ---
Referral to ENT for nose bleed follow up within two weeks.
== END 2023-02-06 23:02 | disposition home or self-care (01) ==
PROVIDERS: Emergency Provider Registered Nurse Emergency; PCP Family Medicine
DX: R04.0 Epistaxis (principal); Z79.82 Long term (current) use of aspirin; I50.32 Chronic diastolic (congestive) heart failure; Z79.899 Other long term (current) drug therapy; I11.0 Hypertensive heart disease with heart failure
CPT/HCPCS: 30901; 36415; 80053; 99283; 83735; 85025; 85610; 85730

== ENCOUNTER 2023-05-08 18:58 | Outpatient (REF) | payer MEDICARE, MEDICAID, SELFPAY ==
[2023-05-08 15:05] LABS: ESR 17 mm/hr (0-20)
[2023-05-08 15:07] LABS: HCT 34.2 % (40.0-50.0); HGB 10.6 g/dL (13.5-17.5); MCH 24.8 pg (27.0-33.0); MCV 80 fL (80-95); MPV 11.3 fL (8.0-11.0); Platelet Count 258 10^3/uL (130-400); RBC 4.27 10^6/uL (4.36-5.78); RDW 17.2 % (11.8-14.1); RDW-SD 49.6 fL; WBC 7.69 10^3/uL (4.4-10.8)
[2023-05-08 15:39] LABS: Iron 15 ug/dL (65-175)
[2023-05-08 15:51] LABS: ALT 22 U/L (16-63); AST 26 U/L (15-37); Albumin 3.4 g/dL (3.4-5.0); Alkaline Phosphatase 101 U/L (46-116); BUN 21 mg/dL (7-18); Bilirubin, Total 0.6 mg/dL (0.2-1.0); CREATININE 1.6 mg/dL (0.70-1.30); Calcium 9.4 mg/dL (8.5-10.1); Chloride 100 mmol/L (98-107); Estimated GFR 46.93 (mL/min/1.73m2); Ferritin 25 ng/mL (26-388); Glucose 139 mg/dL (74-106); Potassium 4.9 mmol/L (3.5-5.1); Sodium 134 mmol/L (136-145); TSH (W/Ref FT4) 6.74 uIU/mL (0.36-3.74); Total Protein 7.5 g/dL (6.4-8.2)
[2023-05-08 16:07] LABS: C-Reactive Protein 1.79 mg/dL (<or=0.5); FREE T4 1.05 ng/dL (0.76-1.46)
== END 2023-05-08 18:59 | disposition home or self-care (01) ==
LOC: NCHCN 18:58
PROVIDERS: PCP Family Medicine; Visit Provider Family Medicine
DX: I10 Essential (primary) hypertension (principal); I48.20 Chronic atrial fibrillation, unspecified; I50.9 Heart failure, unspecified; R79.82 Elevated C-reactive protein (CRP); G89.4 Chronic pain syndrome; Z79.899 Other long term (current) drug therapy; Z86.2 Personal history of diseases of the blood and blood-forming organs and certain disorders involving the immune mechanism
CPT/HCPCS: 80053; 85027; 85652; 82728; 83540; 84439; 84443; 86140

== ENCOUNTER 2023-05-09 09:57 | Emergency (ER) | payer MEDICARE, MEDICAID, SELFPAY ==
[2023-05-09] VITALS (12 sets, daily range): BP systolic 111–138; BP diastolic 84–97; PULSE 96–135; RESP 16–31; TEMP 36.9; O2SAT 97–99
--- NOTE | 2023-05-09 10:00 | RT.EKG_ITS ---
APPROVED REPORT Exam: Resting ECG Reason for Exam: arrythmia Patient Location: E HR:135 bpm ECG Measurements Heart Rate 135 AXIS SD [id number] P [id number] QRSd 104 QRS 46 QT 333 T 63 QTc 499 Conclusion Atrial fibrillation...V-rate 107-165, irreg A-activity Borderline ST depression, anterolateral leads...ST <-0.07mV, I aVL V2-V6
--- NOTE | 2023-05-09 10:14 | W.ED.GENAD ---
Discharge Plan Disposition Patient Disposition: Home Discharge Details Clinical Impression: Atrial fibrillation, Acute anterior epistaxis Primary Care Provider: Sherri Guzman V ED Provider: Marie Mtz Home Meds and New Rx's Prescriptions: New amoxicillin-pot clavulanate 875-125 mg tablet 1 tab PO BID Qty: 6 0RF Continued vitamin B complex Tablet 1 tab PO DAILY spironolactone 25 mg tablet 25 mg PO DAILY Cerovite Senior 0.4 mg-300 mcg- 250 mcg tablet 1 tab PO DAILY Bevespi Aerosphere 9-4.8 mcg HFA aerosol inhaler 2 puff inhalation BID hydrocodone-acetaminophen 10-325 mg tablet 1 tab PO BID metoprolol succinate 50 mg tablet extended release 24 hr 25 mg PO BID aspirin 81 mg Tablet,Delayed Release (Dr/Ec) 81 mg PO DAILY cyclobenzaprine 10 mg Tablet 10 mg PO TID PRN PRN bupropion HCl 150 mg Tablet Sustained-Release 12 Hr 150 mg PO BID citalopram 20 mg Tablet 20 mg PO QAM gabapentin 800 mg Tablet 800 mg PO TID albuterol sulfate 90 mcg/actuation Hfa Aerosol Inhaler 2 puff INHALATION Q6H PRN PRN diclofenac sodium 1 % Gel 4 g TOPICAL BID PRN PRN Bevespi Aerosphere 9-4.8 mcg Hfa Aerosol Inhaler 2 puff INHALATION BID verapamil 120 mg Tablet Extended Release 120 mg PO DAILY sumatriptan succinate 25 mg Tablet See Rx Instructions .ROUTE .COMPLEX Patient Comments: Pt reports last use sometime over the summer Rx Instructions: Pt unable to confirm strength of sumatriptan- si tab po at onset of headache, if no relief may repeat 1 tab after at least 2 hours, max 4 tabs/24 hours triamcinolone acetonide 0.1 % Cream 1 applic TOPICAL BID Patient Comments: Pt has discontinued medication but has on hand in case he needs in the future magnesium oxide 400 mg (241.3 mg magnesium) Tablet 400 mg PO DAILY terazosin 2 mg Capsule 2 mg PO QHS pantoprazole 40 mg Tablet,Delayed Release (Dr/Ec) 40 mg PO DAILY topiramate 50 mg Tablet 50 mg PO BID zolpidem 10 mg Tablet 10 mg PO QHS PRN (Reason: Insomnia) albuterol sulfate 2.5 mg /3 mL (0.083 %) Solution For Nebulization 2.5 mg UPD Q2H PRN PRNQty: 0 0RF ipratropium-albuterol 0.5 mg-3 mg(2.5 mg base)/3 mL Solution For Nebulization 3 ml UPD Q6H Qty: 0 0RF polyethylene glycol 3350 17 gram Powder In Packet 17 g PO DAILY PRN PRN (Reason: Constipation) Qty: 0 0RF guaifenesin [Mucus Relief ER] 600 mg Tablet Extended Release 12hr 600 mg PO BID Qty: 0 0RF Discharge Instructions Instructions: A-fib (Atrial Fibrillation) (ED), Nosebleed (ED) Additional Instructions: Take both your verapamil and your metoprolol daily exactly as prescribed, when you are in atrial fibrillation or a fast heartbeat puts you at increased risk for stroke, you are in that rhythm currently and unfortunately are at risk for bleeding given your current nosebleed and medical history so I am uncomfortable prescribing you anticoagulation at this time, this is a discussion to have with her doctor closely in the outpatient setting, I call to schedule an appointment within the next 24 to 48 hours I also recommend following up with the ear nose and throat, you have significant bleeding to your left naris, while it is resolved now I am worried that this will recur and that you should be followed by ENT as this is happening more frequently Stay away from any alcohol consumption, unless you drink daily and are at risk for withdrawal in which case do not stop drinking immediately and cut down by 1 drink daily Recommend a humidifier in your room, cutting her nostrils with Vaseline twice daily, and please take all your prescribed medications Please return immediately should you have new or worsening complaints, you have also been supplies a nasal clamp, if you do have recurrence of bleeding, please place this on immediately Referrals: Sherri Guzman MD [Primary Care Provider] - [facility] General Date/Time Provider Initiated Documentation: 05/09/23 10:01. [facility] Narrative: this 67-year-old male with history of atrial fibrillation, CHF, alcohol abuse, presents with report of nosebleed which started 8:00 this morning. Denies fever or chills. Denies chest pain or shortness of breath. Patient denies any known trauma. Does not wear oxygen at night and is not anticoagulated per patient. Denies any dizziness or weakness. History of similar per patient has had a cauterized in the past. Drink alcohol last evening denies regular daily use of alcohol per patient. Related Data Home Medications Medication Instructions Recorded Confirmed aspirin 81 mg tablet,delayed 81 mg PO DAILY 01/22/20 07/05/22 release albuterol sulfate 90 mcg/actuation 2 puff inhalation Q6H PRN PRN 11/23/21 07/05/22 aerosol inhaler bupropion HCl 150 mg tablet,12 hr 150 mg PO BID 11/23/21 07/05/22 sustained-release citalopram 20 mg tablet 20 mg PO QAM 11/23/21 07/05/22 cyclobenzaprine 10 mg tablet 10 mg PO TID PRN PRN 11/23/21 07/05/22 diclofenac sodium 1 % topical gel 4 g topical BID PRN PRN 11/23/21 07/05/22 gabapentin 800 mg tablet 800 mg PO TID 11/23/21 07/05/22 glycopyrrolate 9 mcg-formoterol 2 puff inhalation BID 11/23/21 07/05/22 4.8 mcg HFA aerosol inhaler (Bevespi Aerosphere) magnesium oxide 400 mg (241.3 mg 400 mg PO DAILY 11/23/21 07/05/22 magnesium) tablet pantoprazole 40 mg tablet,delayed 40 mg PO DAILY 11/23/21 07/05/22 release sumatriptan succinate 25 mg tablet See Rx Instructions .Route .COMPLEX 11/23/21 07/05/22 terazosin 2 mg capsule 2 mg PO QHS 11/23/21 07/05/22 topiramate 50 mg tablet 50 mg PO BID 11/23/21 07/05/22 triamcinolone acetonide 0.1 % 1 applic topical BID 11/23/21 07/05/22 topical cream verapamil 120 mg tablet,extended 120 mg PO DAILY 11/23/21 07/05/22 release zolpidem 10 mg tablet 10 mg PO QHS PRN Insomnia 11/23/21 07/05/22 albuterol sulfate 2.5 mg/3 mL 2.5 mg (3 mL) UPD Q2H PRN PRN #0 mL 11/29/21 07/05/22 (0.083 %) solution for nebulization guaifenesin 600 mg tablet, 600 mg PO BID #0 tabs 11/29/21 07/05/22 extended release 12 hr (Mucus Relief ER) ipratropium 0.5 mg-albuterol 3 mg 3 ml UPD Q6H #0 mL 11/29/21 07/05/22 (2.5 mg base)/3 mL nebulization soln polyethylene glycol 3350 17 gram 17 g PO DAILY PRN PRN Constipation 11/29/21 07/05/22 oral powder packet #0 ea glycopyrrolate 9 mcg-formoterol 2 puff inhalation BID 12/27/21 07/05/22 4.8 mcg HFA aerosol inhaler (Bevespi Aerosphere) hydrocodone 10 mg-acetaminophen 1 tab PO BID 12/27/21 07/05/22 325 mg tablet metoprolol succinate 50 mg 25 mg PO BID 12/27/21 07/05/22 tablet,extended release 24 hr pryqsaaj-lni-bxnnz acid 0.4 1 tab PO DAILY 12/27/21 07/05/22 mg-lycopene 300 mcg-lutein 250 mcg tablet (Cerovite Senior) spironolactone 25 mg tablet 25 mg PO DAILY 12/27/21 07/05/22 vitamin B complex 1 tab PO DAILY 12/27/21 07/05/22 amoxicillin 875 mg-potassium 1 tab PO BID #6 tabs 05/09/23 clavulanate 125 mg tablet Previous Rx's Medication Instructions Recorded albuterol sulfate 2.5 mg/3 mL 2.5 mg (3 mL) UPD Q2H PRN PRN #0 mL 11/29/21 (0.083 %) solution for nebulization guaifenesin 600 mg tablet, 600 mg PO BID #0 tabs 11/29/21 extended release 12 hr (Mucus Relief ER) ipratropium 0.5 mg-albuterol 3 mg 3 ml UPD Q6H #0 mL 11/29/21 (2.5 mg base)/3 mL nebulization soln polyethylene glycol 3350 17 gram 17 g PO DAILY PRN PRN Constipation 11/29/21 oral powder packet #0 ea amoxicillin 875 mg-potassium 1 tab PO BID #6 tabs 05/09/23 clavulanate 125 mg tablet Allergies Allergy/AdvReac Type Severity Reaction Status Date / Time amlodipine Allergy Unknown Other (See Unverified 05/09/23 10:04 Comment) trazodone Allergy Unknown Other (See Unverified 05/09/23 10:04 Comment) budesonide [From Pulmicort] Allergy Other (See Verified 05/09/23 10:04 Comment) diazepam AdvReac Intermediate Agitation Unverified 05/09/23 10:04 clonidine AdvReac Mild Dry mouth Unverified 05/09/23 10:04 lisinopril AdvReac Mild Cough Unverified 05/09/23 10:04 losartan AdvReac Mild Cough Unverified 05/09/23 10:04 tramadol AdvReac Nauseous Unverified 05/09/23 10:04 General Stated Complaint: Epistaxis DAYSI: 3 Course Vital Signs Vital signs: Vital Signs Temperature 36.9 C 05/09/23 10:01 Pulse 121 H 05/09/23 10:01 Respiratory Rate 18 05/09/23 10:01 Blood Pressure 138/84 05/09/23 10:01 Pulse Oximetry 97 05/09/23 10:01 Temperature 36.9 C 05/09/23 10:01 Temperature Source Oral 05/09/23 10:01 Pulse 121 H 05/09/23 10:01 Respiratory Rate 18 05/09/23 10:01 Respiratory Effort Normal, Non-Labored 05/09/23 10:03 Blood Pressure 138/84 05/09/23 10:01 Blood Pressure Position Sitting 05/09/23 10:01 Pulse Oximetry 97 05/09/23 10:01 Oxygen Delivery Method Room Air 05/09/23 10:01 Oxygen Flow Rate 0 05/09/23 10:01 Pain Level 10 05/09/23 10:01 Procedures Epistaxis Control Time Out Performed: Yes Nostril: left Direct Inspection: unable to visualize Clots Removed by: suction Cautery Used: none Device Inserted: nasal tampon Device Size: 7 Patient Tolerated Procedure: no complications Complications: continued epistaxis (scant oozing) Medical Decision Making 67-year-old male presents alert and oriented with significant bleeding from his left nare, brisk bleeding noted, with suction unable to visualize secondary to amount of bleeding with removal of nasal clamp Given to the briskness of the bleeding and significant posterior bleeding down patient's throat, will place Rhino Rocket, will place a 7.5 Rhino Rocket, will apply TXA and phenylephrine Patient continued to ooze but slowed significantly, there is 15 cc of air in the Rhino Rocket Patient is hemodynamically stable he is in atrial fibrillation, he has a history of atrial fibrillation and is not anticoagulated though does take aspirin He denies any known trauma, has had a history of recurrent nosebleeds in the past, he immediately stated he did not want a Rhino Rocket, however given the concern regarding exsanguination from brisk nasal bleeding, he did allow the Rhino Rocket to be placed, I did obtain consent Given the severity of this epistaxis and recurrent history, I did refer patient to ENT, I think at this point has had blood score is a 3 and I do not feel comfortable anticoagulating this patient with current atrial fibrillation, he also has a history of alcohol use He does not realize that he is at increased risk of stroke and we did have this discussion He is not diligent about taking his verapamil as he does not like the way it makes him feel reportedly and has not taken his metoprolol since last evening, I will administer these meds in the emergency department On reassessment, patient remains in atrial fibrillation but rate controlled, he is encouraged to follow-up with ENT, referral was placed and follow-up with his primary care physician closely in the outpatient setting Patient is alert and oriented, he is feeling remarkably improved, we discussed humidifier in room and Vaseline to nares twice daily Patient is ambulatory with steady gait, improved vitals, left suspected anterior epistaxis although unable to visualize secondary to amount of bleeding Posterior bleeding has resolved, uvula midline, oropharynx patent, cardiac rate rhythm was irregularly irregular rhythm, no murmurs or rubs, lungs clear to auscultation, cranial nerves II through XII intact Return precautions discussed in detail and patient expressed understanding discharged home in hemodynamically stable condition encouraged alcohol cessation Encouraged, Quality:SDOH Health Related Social Needs: No Data to Display PFSH All Active Problems (Updated 05/09/23 @ 12:14 by EDMAR Eckert) Acute anterior epistaxis (Acute) Atrial fibrillation (Chronic) Closed right clavicular fracture (Acute ~11/2021) Right shoulder pain (Acute) CHF (congestive heart failure) (Chronic) No-show for appointment (Acute) Left leg weakness (Acute) MCL sprain of right knee (Acute) Alcohol abuse (Chronic) Chest discomfort (Chronic) Acute on chronic diastolic heart failure (Acute) Bilateral pleural effusion (Acute) Falls (Acute) Pulmonary nodule (Acute) Acute respiratory failure with hypoxia (Acute) Pneumonia (Acute) Acute respiratory distress (Acute) Femur fracture, right (Acute) Fracture, rib (Acute) A-fib (Chronic) Laceration of digital nerve of left thumb (Acute) Gastritis and duodenitis (Acute) Medical History (Updated 05/09/23 @ 12:14 by EDMAR Eckert) Tobacco use Back pain Obesity Chronic pain Asthma Adjustment disorder Pain in left wrist Right hip pain Insomnia Medication monitoring encounter History of depression Opioid withdrawal Cataract Blurred vision Patella-femoral syndrome Trochanteric bursitis Knee pain, right Rib pain Hx of viral pneumonia Lumbar radiculopathy Cocaine abuse Lightheadedness Abdominal pain in male Positive urine drug screen Dyspnea on exertion Voiding dysfunction Clavicle pain Hepatitis C Per H&P: s/p tx. . He had an abc CT earlier this year which showed a normal liver. Arthritis Neck fracture Per pt. states he broke his nevk 5-6 years ago. 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
[2023-05-09 10:37] LABS: Abs Immature Grans 0.03 10^3/uL (0.0-0.06); Absolute Eosinophil Count 0.25 10^3/uL (0.0-0.7); Absolute Lymphocyte Count 0.91 10^3/uL (1.2-3.4); Absolute Monocyte Count 0.86 10^3/uL (0.1-0.8); Absolute Neutrophil Count 5.51 10^3/uL (1.2-6.7); Basophils % 1.3; Eosinophils % 3.3; HCT 37.3 % (40.0-50.0); HGB 11.5 g/dL (13.5-17.5); Immature Grans % 0.4; Lymphocytes % 11.9; MCH 24.4 pg (27.0-33.0); MCHC 30.8 % (32.0-36.0); MCV 79 fL (80-95); MPV 9.6 fL (8.0-11.0); Monocytes % 11.2; Neutrophils % 71.9; Platelet Count 270 10^3/uL (130-400); RBC 4.71 10^6/uL (4.36-5.78); RDW 17.2 % (11.8-14.1); RDW-SD 49.5 fL; WBC 7.66 10^3/uL (4.4-10.8)
[2023-05-09] MEDS: Normal Saline 500 ML IV (10:46)
[2023-05-09] MEDS: Tranexamic Acid 1,000 MG/10 ML VIAL 500 MG NS (10:46)
[2023-05-09] MEDS: Metoprolol 5 MG/5 ML VIAL IVP (10:46)
[2023-05-09] MEDS: Metoprolol CR 25 MG TABCR PO (10:46)
[2023-05-09 10:49] LABS: INR 1.3 (0.9-1.1); Prothrombin Time 12.4 sec (9.1-11.1)
--- NOTE | 2023-05-09 12:23 | NUR.NOTE ---
Referral faxed to [facility] ENT for epistxis, rhino rocket in place, needs reassessment; within 3 to 4 days. Nursing Note:
== END 2023-05-09 13:20 | disposition home or self-care (01) ==
PROVIDERS: Emergency Provider Physician Assistant; PCP Family Medicine
DX: R04.0 Epistaxis (principal); J44.9 Chronic obstructive pulmonary disease, unspecified; I11.0 Hypertensive heart disease with heart failure; I50.32 Chronic diastolic (congestive) heart failure; I48.91 Unspecified atrial fibrillation; Z79.82 Long term (current) use of aspirin
CPT/HCPCS: 86850; 86900; 86901; 93005; 96361; 96374; 99284; 85025; 85610; 93010; J2004

== ENCOUNTER 2023-06-18 22:59 | Inpatient (IN) | payer MEDICARE, MEDICAID, SELFPAY ==
[2023-06-18] VITALS (11 sets, daily range): BP systolic 114–136; BP diastolic 68–112; PULSE 105–140; RESP 15–41; TEMP 36.9; O2SAT 99
--- NOTE | 2023-06-18 23:05 | ED.GENADUL_ITS ---
Discharge Plan Disposition Patient Disposition: Admit to [facility] Condition: Serious Discharge Details Clinical Impression: Acute anterior epistaxis Primary Care Provider: Sherri Guzman V ED Provider: Danielle Watkins Home Meds and New Rx's Prescriptions: New amoxicillin-pot clavulanate 875-125 mg tablet 1 tab PO BID Qty: 6 0RF Continued vitamin B complex Tablet 1 tab PO DAILY spironolactone 25 mg tablet 25 mg PO DAILY Cerovite Senior 0.4 mg-300 mcg- 250 mcg tablet 1 tab PO DAILY celecoxib 100 mg capsule 100 mg PO BID Patient Comments: only takes 100 mg once a day cholecalciferol (vitamin D3) 50 mcg (2,000 unit) capsule 50 mcg PO DAILY hydrocodone-acetaminophen 10-325 mg tablet 1 tab PO QID PRN metoprolol succinate 50 mg tablet extended release 24 hr 25 mg PO DAILY aspirin 81 mg Tablet,Delayed Release (Dr/Ec) 81 mg PO DAILY cyclobenzaprine 10 mg Tablet 10 mg PO TID PRN PRN bupropion HCl 150 mg Tablet Sustained-Release 12 Hr 150 mg PO BID citalopram 20 mg Tablet 20 mg PO QAM gabapentin 800 mg Tablet 800 mg PO TID albuterol sulfate 90 mcg/actuation Hfa Aerosol Inhaler 2 puff INHALATION Q6H PRN PRN diclofenac sodium 1 % Gel 4 g TOPICAL BID PRN PRN verapamil 120 mg Tablet Extended Release 120 mg PO DAILY triamcinolone acetonide 0.1 % Cream 1 applic TOPICAL BID Patient Comments: Pt has discontinued medication but has on hand in case he needs in the future magnesium oxide 400 mg (241.3 mg magnesium) Tablet 400 mg PO DAILY pantoprazole 40 mg Tablet,Delayed Release (Dr/Ec) 40 mg PO DAILY topiramate 50 mg Tablet 50 mg PO BID zolpidem 10 mg Tablet 10 mg PO QHS PRN (Reason: Insomnia) albuterol sulfate 2.5 mg /3 mL (0.083 %) Solution For Nebulization 2.5 mg UPD Q2H PRN PRNQty: 0 0RF ipratropium-albuterol 0.5 mg-3 mg(2.5 mg base)/3 mL Solution For Nebulization 3 ml UPD Q6H Qty: 0 0RF polyethylene glycol 3350 17 gram Powder In Packet 17 g PO DAILY PRN PRN (Reason: Constipation) Qty: 0 0RF sumatriptan succinate 25 mg tablet See Rx Instructions .ROUTE .COMPLEX PRN Patient Comments: Pt reports last use sometime over the summer Rx Instructions: Pt unable to confirm strength of sumatriptan- si tab po at onset of headache, if no relief may repeat 1 tab after at least 2 hours, max 4 tabs/24 hours PRN; Discharge Instructions Instructions: Nosebleed (ED) Additional Instructions: Leave the nasal packing in place. Followup with ENT in 3 days (if unable to followup with ENT please return to the emergency department) to have the packing removed. Antibiotics twice a day until the packing is removed. Return to the emergency department for new or worsening symptoms including fever, feeling like you are going to pass out, recurrent nosebleed, or if you have any other concerns. Referrals: [facility] ENT [Provider Group] Sherri Guzman MD [Primary Care Provider] - [facility] General Mode of arrival: ambulatory . Date/Time Provider Initiated Documentation: 06/18/23 23:04 . Limitations to Documentation: no limitations . Information obtained by: patient . HPI Narrative: 68yo M with hx COPD, CHF, afib, not on anticogulation other than baby aspirin, hx several recent nosebleeds all on the left (02/06/23, 05/08/22) presenting for nosebleed. History from patient and EMS. Bleeding started about 1 hour prior to arrival. History from patient and EMS. Pressure applied, bleeding has slowed but there is still some dripping. No nasal trauma. Otherwise in his usual state of health with no fevers, chills, rash, lightheadedness, chest pain, shortness of breath, nasuea, vomiting, or other concerns. Related Data Home Medications Medication Instructions Recorded Confirmed aspirin 81 mg tablet,delayed 81 mg PO DAILY 01/22/20 06/18/23 release albuterol sulfate 90 mcg/actuation 2 puff inhalation Q6H PRN PRN 11/23/21 06/18/23 aerosol inhaler bupropion HCl 150 mg tablet,12 hr 150 mg PO BID 11/23/21 06/18/23 sustained-release citalopram 20 mg tablet 20 mg PO QAM 11/23/21 06/18/23 cyclobenzaprine 10 mg tablet 10 mg PO TID PRN PRN 11/23/21 06/18/23 diclofenac sodium 1 % topical gel 4 g topical BID PRN PRN 11/23/21 06/18/23 gabapentin 800 mg tablet 800 mg PO TID 11/23/21 06/18/23 magnesium oxide 400 mg (241.3 mg 400 mg PO DAILY 11/23/21 06/18/23 magnesium) tablet pantoprazole 40 mg tablet,delayed 40 mg PO DAILY 11/23/21 06/18/23 release topiramate 50 mg tablet 50 mg PO BID 11/23/21 06/18/23 triamcinolone acetonide 0.1 % 1 applic topical BID 11/23/21 06/18/23 topical cream verapamil 120 mg tablet,extended 120 mg PO DAILY 11/23/21 06/18/23 release zolpidem 10 mg tablet 10 mg PO QHS PRN Insomnia 11/23/21 06/18/23 albuterol sulfate 2.5 mg/3 mL 2.5 mg (3 mL) UPD Q2H PRN PRN #0 mL 11/29/21 06/18/23 (0.083 %) solution for nebulization ipratropium 0.5 mg-albuterol 3 mg 3 ml UPD Q6H #0 mL 11/29/21 06/18/23 (2.5 mg base)/3 mL nebulization soln polyethylene glycol 3350 17 gram 17 g PO DAILY PRN PRN Constipation 11/29/21 06/18/23 oral powder packet #0 ea [id number] acid 0.4 1 tab PO DAILY 12/27/21 06/18/23 mg-lycopene 300 mcg-lutein 250 mcg tablet (Cerovite Senior) spironolactone 25 mg tablet 25 mg PO DAILY 12/27/21 06/18/23 vitamin B complex 1 tab PO DAILY 12/27/21 06/18/23 celecoxib 100 mg capsule 100 mg PO BID 05/15/23 06/18/23 cholecalciferol (vitamin D3) 50 50 mcg PO DAILY 05/15/23 06/18/23 mcg (2,000 unit) capsule hydrocodone 10 mg-acetaminophen 1 tab PO QID PRN 05/15/23 06/18/23 325 mg tablet metoprolol succinate 50 mg 25 mg PO DAILY 05/15/23 06/18/23 tablet,extended release 24 hr sumatriptan succinate 25 mg tablet See Rx Instructions .Route 05/16/23 06/18/23 .COMPLEX PRN amoxicillin 875 mg-potassium 1 tab PO BID #6 tabs 06/19/23 clavulanate 125 mg tablet Previous Rx's Medication Instructions Recorded albuterol sulfate 2.5 mg/3 mL 2.5 mg (3 mL) UPD Q2H PRN PRN #0 mL 11/29/21 (0.083 %) solution for nebulization ipratropium 0.5 mg-albuterol 3 mg 3 ml UPD Q6H #0 mL 11/29/21 (2.5 mg base)/3 mL nebulization soln polyethylene glycol 3350 17 gram 17 g PO DAILY PRN PRN Constipation 11/29/21 oral powder packet #0 ea amoxicillin 875 mg-potassium 1 tab PO BID #6 tabs 06/19/23 clavulanate 125 mg tablet Allergies Allergy/AdvReac Type Severity Reaction Status Date / Time amlodipine Allergy Unknown Other (See Unverified 06/19/23 07:11 Comment) trazodone Allergy Unknown Other (See Unverified 06/19/23 07:11 Comment) budesonide [From Pulmicort] Allergy Other (See Verified 06/19/23 07:11 Comment) diazepam AdvReac Intermediate Agitation Unverified 06/19/23 07:11 clonidine AdvReac Mild Dry mouth Unverified 06/19/23 07:11 lisinopril AdvReac Mild Cough Unverified 06/19/23 07:11 losartan AdvReac Mild Cough Unverified 06/19/23 07:11 tramadol AdvReac Nauseous Unverified 06/19/23 07:11 General Stated Complaint: Epistaxis DAYSI: 4 Review of Systems Narrative: see HPI Exam Narrative Exam Narrative: General: Alert, chronically ill appearing, holding bloody towel to bridge of nose. Head: Normocephalic, atraumatic Neck: Trachea midline, ?Neck supple. ENT: ?Bleeding from left nares. Cardiac: ?Ireregular,, no murmurs appreciated Resp: No respiratory distress. CTAB. Abd: ?Soft, non-distended, nontender Extremities: ?No deformities.? No peripheral edema. Neurologic: GCS 15. ? Moves all extremities freely against gravity Course Vital Signs Vital signs: Vital Signs Temperature 36.9 C 06/18/23 22:58 Pulse 116 H 06/18/23 22:58 Respiratory Rate 22 06/18/23 22:58 Blood Pressure 114/68 06/18/23 22:58 Pulse Oximetry 99 06/18/23 22:58 Temperature 36.9 C 06/18/23 22:58 Temperature Source Tympanic 06/18/23 22:58 Pulse 116 H 06/18/23 22:58 Respiratory Rate 22 06/18/23 22:58 Blood Pressure 114/68 06/18/23 22:58 Blood Pressure Position Sitting 06/18/23 22:58 Pulse Oximetry 99 06/18/23 22:58 Oxygen Delivery Method Room Air 06/18/23 22:58 Oxygen Flow Rate 0 06/18/23 22:58 Pain Level 0 06/18/23 22:58 Procedures Epistaxis Control Time Out Performed: Yes Nostril: left Nose Prepped With: oxymetazoline Direct Inspection: unable to visualize Clots Removed by: blowing nose Cautery Used: none Device Inserted: nasal tampon Patient Tolerated Procedure: well Complications: continued epistaxis Medical Decision Making 68yo M with hx COPD, CHF, afib, not on anticogulation other than baby aspirin, hx several recent nosebleeds all on the left (02/06/23, 05/08/22) presenting for nosebleed. History from patient and EMS. Bleeding started about 1 hour prior to arrival. History from patient and EMS. Pressure applied, bleeding has slowed but there is still some dripping. No nasal trauma. Vital signs reassuring on arrival. Continued epistaxis on exam. Afib on the monitor. -Patient instructed to blow nose, large clots expressed. Afrin instilled bilaterally, nasal clamp placed. Labs sent and reviewed as below, CBC with hg of 11.0 at bseline on [facility] record review. INR slightly elevated at 1.4. T&S sent, no indication for emergent transfusion at this time. -Reassessed 45 minutes, later, continued slow bleed. Afrin re-applied, txa soak ed pledget placed in left nares, nasal clamp placed. -Reassessed 1 hour later; continued bleeding. Patient hesitant to accept packing however is necessary at this point; discussed with patient and he agrees to packing. Rhinorocket soaked in TXA placed. Tylenol and toradol for pain. HR labile thorughout stay, up to 140's-150's with pain/agitation, decreases to 90's-110's without intervention. -On hourly reassessment bleeding well controlled for two hours. Patient without ride home at this time, RCT running in the morning. Will remain in the ED pending transport home in the morning, anticipate discharge with packing in place on course of antibiotics. Patient woke at 0630, coughed, started bleeding again profusely now from both nares. 7.5cm rapid rhino placed and patient given morphine to tolerate. Repeat CBC sent, Hg stable. Discussed with Dr. Bhatti from ENT; advised dual lumen rapid rhino. Dual lumen placed. Patient with continued bleeding, Dr. Bhatti updated and came to bedside, adjusted dual lumen rapid rhino. Subsequently no further bleeding. Dr. Bhatti advised admission for continued monitoring, pain control as necessary to tolerate packing, continued abx, and plan for packing removal on Sunday (6 days). Discussed with hospitalist on-call Dr. Trent, accepted to medicine service for further management. Awaiting admission orders and transfer to the floor. Lab Data Lab results reviewed: Yes I reviewed the patient's lab results. Labs: Laboratory Tests Range/Units 06/18/23 06/18/23 06/19/23 23:26 23:27 06:36 WBC (4.4-10.8) 10^3/uL 5.99 8.67 RBC (4.36-5.78) 10^6/uL 4.55 4.45 Hgb (13.5-17.5) g/dL 11.0 L 10.8 L Hct (40.0-50.0) % 34.3 L 34.2 L MCV (80-95) fL 75 L 77 L MCH (27.0-33.0) pg 24.2 L 24.3 L MCHC (32.0-36.0) % 32.1 31.6 L RDW (11.8-14.1) % 20.3 H 20.1 H Plt Count (130-400) 10^3/uL 249 253 MPV (8.0-11.0) fL 9.7 9.6 Immature Gran % 0.3 0.2 Neutrophils % 45.6 67.2 Lymphocytes % 33.4 16.4 Monocytes % 14.5 12.9 Eosinophils % 5.2 2.4 Basophils % 1.0 0.9 Nucleated RBC % (0.0-0.3) % 0.0 0.0 Absolute Neutrophils (1.2-6.7) 10^3/uL 2.73 5.82 Absolute Lymphocytes (1.2-3.4) 10^3/uL 2.00 1.42 Absolute Monocytes (0.1-0.8) 10^3/uL 0.87 H 1.12 H Absolute Eosinophils (0.0-0.7) 10^3/uL 0.31 0.21 Absolute Basophils (0.0-0.2) 10^3/uL 0.06 0.08 RBC Morphology See Below Polychromasia Present Poikilocytosis 2+ Anisocytosis 2+ PT (9.1-11.1) sec 13.3 H INR (0.9-1.1) 1.4 H APTT (23.6-32.8) sec 30.1 Patient ABO/Rh A Positive Antibody Screen NEGATIVE Quality:SDOH Health Related Social Needs: No Data to Display Critical Care Time Critical Care Time Critical Care Time: Yes Total Critical Care Time: 32 Attestation: Due to a high probability of clinically significant, life threatening deterioration, the patient required my highest level of preparedness to intervene emergently and I personally spent this critical care time directly and personally managing the patient. This critical care time included obtaining a history; examining the patient; pulse oximetry; ordering and review of studies; arranging urgent treatment with development of a management plan; evaluation of patient's response to treatment; frequent reassessment; and, discussions with other providers.This critical care time was performed to assess and manage the high probability of imminent, life-threatening deterioration that could result in multi-organ failure. It was exclusive of separately billable procedures PFSH All Active Problems (Updated 06/19/23 @ 07:54 by River Bhatti MD) Acute posterior epistaxis (Acute) Acute anterior epistaxis (Acute) COPD (chronic obstructive pulmonary disease) (Chronic) Closed right clavicular fracture (Acute ~11/2021) Right shoulder pain (Acute) CHF (congestive heart failure) (Chronic) No-show for appointment (Acute) Left leg weakness (Acute) MCL sprain of right knee (Acute) Alcohol abuse (Chronic) Chest discomfort (Chronic) Acute on chronic diastolic heart failure (Acute) Bilateral pleural effusion (Acute) Falls (Acute) Pulmonary nodule (Acute) Acute respiratory failure with hypoxia (Acute) Pneumonia (Acute) Acute respiratory distress (Acute) Femur fracture, right (Acute) Fracture, rib (Acute) A-fib (Chronic) Laceration of digital nerve of left thumb (Acute) Gastritis and duodenitis (Acute) Medical History (Updated 06/19/23 @ 07:54 by River Bhatti MD) Tobacco use Back pain Obesity Chronic pain Asthma Adjustment disorder Pain in left wrist Right hip pain Insomnia Medication monitoring encounter History of depression Opioid withdrawal Cataract Blurred vision Patella-femoral syndrome Trochanteric bursitis Knee pain, right Rib pain Hx of viral pneumonia Lumbar radiculopathy Cocaine abuse Lightheadedness Abdominal pain in male Positive urine drug screen Dyspnea on exertion Voiding dysfunction Clavicle pain Hepatitis C Per H&P: s/p tx. . He had an abc CT earlier this year which showed a normal liver. Arthritis Neck fracture Per pt. states he broke his nevk 5-6 years ago. 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
[2023-06-18 23:34] LABS: Absolute Eosinophil Count 0.31 10^3/uL (0.0-0.7); Eosinophils % 5.2; Lymphocytes % 33.4
[2023-06-18 23:49] LABS: INR 1.4 (0.9-1.1); PTT Activated 30.1 sec (23.6-32.8); Prothrombin Time 13.3 sec (9.1-11.1)
[2023-06-18 23:50] LABS: Abs Immature Grans 0.02 10^3/uL (0.0-0.06); Absolute Basophil Count 0.06 10^3/uL (0.0-0.2); Absolute Monocyte Count 0.87 10^3/uL (0.1-0.8); Absolute Neutrophil Count 2.73 10^3/uL (1.2-6.7); HCT 34.3 % (40.0-50.0); Immature Grans % 0.3; MCH 24.2 pg (27.0-33.0); MCHC 32.1 % (32.0-36.0); MCV 75 fL (80-95); MPV 9.7 fL (8.0-11.0); Monocytes % 14.5; Neutrophils % 45.6; Platelet Count 249 10^3/uL (130-400); RBC 4.55 10^6/uL (4.36-5.78); RDW 20.3 % (11.8-14.1); RDW-SD 53.7 fL; WBC 5.99 10^3/uL (4.4-10.8)
[2023-06-18 23:53] LABS: Anisocytosis 2+; Diff Comment RBC Morph Reviewed
[2023-06-18 23:54] LABS: Poikilocytes 2+; Polychromasia Present
[2023-06-19] VITALS (91 sets, daily range): BP systolic 113–175; BP diastolic 79–133; PULSE 0–148; RESP 12–44; TEMP 35.8–36.3; O2SAT 92–99
[2023-06-19] MEDS: Tranexamic Acid 1,000 MG/10 ML VIAL 500 MG NS (00:17)
[2023-06-19] MEDS: Amoxicillin 875/Clav. 125 TAB PO (03:22)
--- NOTE | 2023-06-19 03:29 | NUR.NOTE ---
Referral scanned to [facility] ENT to f/u 06/22/23 for epistaxis patient has rhinorocket in left nare.Nursing Note:
[2023-06-19] MEDS: Ketorolac 15 MG/ML VIAL IVP (06:37)
[2023-06-19] MEDS: Acetaminophen 500 MG TAB 1000 MG PO (06:37)
[2023-06-19 06:43] LABS: Abs Immature Grans 0.02 10^3/uL (0.0-0.06); Absolute Basophil Count 0.08 10^3/uL (0.0-0.2); Absolute Eosinophil Count 0.21 10^3/uL (0.0-0.7); Absolute Lymphocyte Count 1.42 10^3/uL (1.2-3.4); Absolute Monocyte Count 1.12 10^3/uL (0.1-0.8); Absolute Neutrophil Count 5.82 10^3/uL (1.2-6.7); Basophils % 0.9; Eosinophils % 2.4; HCT 34.2 % (40.0-50.0); HGB 10.8 g/dL (13.5-17.5); Immature Grans % 0.2; Lymphocytes % 16.4; MCH 24.3 pg (27.0-33.0); MCHC 31.6 % (32.0-36.0); MCV 77 fL (80-95); MPV 9.6 fL (8.0-11.0); Monocytes % 12.9; Neutrophils % 67.2; Platelet Count 253 10^3/uL (130-400); RBC 4.45 10^6/uL (4.36-5.78); RDW 20.1 % (11.8-14.1); RDW-SD 54.6 fL; WBC 8.67 10^3/uL (4.4-10.8)
[2023-06-19] MEDS: MORPHine 4 MG/ML SYR IVP (07:03)
[2023-06-19] MEDS: Ondansetron 4 MG/2 ML VIAL (07:09)
--- NOTE | 2023-06-19 07:49 | ECONE_ITS ---
Date of service: 06/19/23 Time of Service: 07:49 History of Present Illness History of Present Illness Chief Complaint: Posterior epistaxis, left Narrative: The patient has a history of recurrent left-sided anterior epistaxis dealt with with cautery and packing. Last night he began to develop epistaxis on the left once again and was initially controlled with a pack overnight. This morning, as they were getting ready to discharge him, he began to bleed profusely again with the pack in place from both nostrils. Attempt at anterior posterior pack was made but placement did not result in control of epistaxis. As result I was called to see the patient. He does have atrial fibrillation, congestive heart failure, and COPD. His only anticoagulate is aspirin. He does have a history of hepatitis C. He also has a history of alcoholism. He notes no recent nasal trauma. Consults Consult date: 06/19/23 Requesting physician: Danielle Watkins Assessment and Plan Assessment and plan (1) Acute posterior epistaxis: Status: Acute Assessment and plan: The patient has multiple medical issues use, which could contribute to his epistaxis. He is now status post successful placement of the anterior posterior balloon pack with cessation of the bleeding on the left. I spoke with both the emergency room and the hospitalist. I recommended that we keep the pack in place for 5 days, keep him on antibiotics for this interval, and hospitalize him for pain control. I recommended Ancef or the equivalent while he is in-house, and discontinuing his aspirin. I discussed anterior posterior packs with the hospitalist and discussed the fact that if he begins to bleed again, the first thing to do is to check the inflation status of the balloons and reinflate them if the pressure has come off. If he bleeds despite having the PACs secured and inflated, then honestly I believe interventional radiology for possible embolization of the bleeding source would be appropriate. Unfortunately this is not a service we have available here and so this would require transfer to [facility] or [facility] for IR. If they choose not to remove the pack over the weekend, I have asked him to call me on Sunday and I will remove the pack for them. I am out of town this weekend. They had no further questions. They are comfortable with the plan. PFSH All Active Problems (Updated 06/19/23 @ 07:54 by River Bhatti MD) Acute posterior epistaxis (Acute) Acute anterior epistaxis (Acute) COPD (chronic obstructive pulmonary disease) (Chronic) Closed right clavicular fracture (Acute ~11/2021) Right shoulder pain (Acute) CHF (congestive heart failure) (Chronic) No-show for appointment (Acute) Left leg weakness (Acute) MCL sprain of right knee (Acute) Alcohol abuse (Chronic) Chest discomfort (Chronic) Acute on chronic diastolic heart failure (Acute) Bilateral pleural effusion (Acute) Falls (Acute) Pulmonary nodule (Acute) Acute respiratory failure with hypoxia (Acute) Pneumonia (Acute) Acute respiratory distress (Acute) Femur fracture, right (Acute) Fracture, rib (Acute) A-fib (Chronic) Laceration of digital nerve of left thumb (Acute) Gastritis and duodenitis (Acute) Medical History (Updated 06/19/23 @ 07:54 by River Bhatti MD) Tobacco use Back pain Obesity Chronic pain Asthma Adjustment disorder Pain in left wrist Right hip pain Insomnia Medication monitoring encounter History of depression Opioid withdrawal Cataract Blurred vision Patella-femoral syndrome Trochanteric bursitis Knee pain, right Rib pain Hx of viral pneumonia Lumbar radiculopathy Cocaine abuse Lightheadedness Abdominal pain in male Positive urine drug screen Dyspnea on exertion Voiding dysfunction Clavicle pain Hepatitis C Per H&P: s/p tx. . He had an abc CT earlier this year which showed a normal liver. Arthritis Neck fracture Per pt. states he broke his nevk 5-6 years ago. 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) As treatment for proximal humerus fx (DOI: 11/11/2021) History of surgery on wrist History of cataract surgery History of cataract surgery History of hand surgery Social History Smoking/Tobacco Use Status: Current every day Tobacco Type: cigarettes Smoking risk assessment performed?: Yes Alcohol Intake: current Alcohol Intake frequency: a few times a week Drug use: Never Substance use type: does not use and unknown Housing: apartment Current gender identity: male Do you feel safe at home: Yes Do you feel safe in your relationship?: Yes Additional Social history: lives alone Exam Const General: cooperative Orientation: alert, awake and oriented x3 HENMT Other: He is bleeding profusely from the right and left nostril although the packing appears too far forward to obstruct the posterior choana. There is also blood running down the back of his throat. After discussion with the patient and making sure he had been administered some morphine, the clot was evacuated from his nose and from his oropharynx, and the pack deflated and repositioned so that the posterior pack was further posteriorly in the nasopharynx. The posterior balloon was then inflated and resulted in cessation of the bleeding from the right nostril but continued bleeding from the left. The anterior pack was then inflated with cessation of the bleeding overall. The patient was observed for 15 minutes without further bleeding. The packing was secured to the left cheek. Eyes Other: No proptosis or enophthalmos, no conjunctival hemorrhage Skin Other: No petechiae Results Last Vital Signs Temp 36.2 C L 06/19/23 03:29 Pulse 73 06/19/23 07:39 Resp 20 06/19/23 06:53 BP 137/110 H 06/19/23 07:46 Pulse Ox 98 06/19/23 06:53 Labs 06/19/23 06:36 Labs: Laboratory Results - last 24 hr 06/18/23 06/18/23 06/19/23 23:26 23:27 06:36 WBC 5.99 8.67 RBC 4.55 4.45 Hgb 11.0 L 10.8 L Hct 34.3 L 34.2 L MCV 75 L 77 L MCH 24.2 L 24.3 L MCHC 32.1 31.6 L RDW 20.3 H 20.1 H Plt Count 249 253 MPV 9.7 9.6 Immature Gran % 0.3 0.2 Neutrophils % 45.6 67.2 Lymphocytes % 33.4 16.4 Monocytes % 14.5 12.9 Eosinophils % 5.2 2.4 Basophils % 1.0 0.9 Nucleated RBC % 0.0 0.0 Absolute Neutrophils 2.73 5.82 Absolute Lymphocytes 2.00 1.42 Absolute Monocytes 0.87 H 1.12 H Absolute Eosinophils 0.31 0.21 Absolute Basophils 0.06 0.08 RBC Morphology See Below Polychromasia Present Poikilocytosis 2+ Anisocytosis 2+ PT 13.3 H INR 1.4 H APTT 30.1 Patient ABO/Rh A Positive Antibody Screen NEGATIVE
--- NOTE | 2023-06-19 07:52 | W.PM.HP.N ---
Date of service: 06/19/23 Time of Service: 09:02 Assessment and Plan Assessment and plan (1) Acute posterior epistaxis: Status: Acute Assessment and plan: - Third episode over the last year and a half of severe epistaxis -Hemoglobin currently stable -Dual-lumen rapid Rhino placed in the emergency department and adjusted by ENT Dr. Bhatti -Appreciate recommendations: -Monitor dual lumen rapid Rhino, add additional air if needed -Small amounts of blood-tinged sputum okay -However, if patient has profuse bleeding, will reach out to [facility] for consideration of transfer and embolization -If patient does not rebleed, can consider removing dual-lumen Rhino on 06/22 or 06/23 -Hold aspirin (2) COPD (chronic obstructive pulmonary disease): Status: Chronic Assessment and plan: - Without acute exacerbation -Continue home inhalers (3) (HFpEF) heart failure with preserved ejection fraction: Status: Acute Assessment and plan: - Without acute exacerbation -Continue home verapamil and spironolactone (4) A-fib: Status: Chronic Assessment and plan: - Currently rate controlled -Continue home Toprol-XL -Hold aspirin as noted above Qualifiers: Atrial fibrillation type: longstanding persistent Qualified Code(s): I48.11 - Longstanding persistent atrial fibrillation History of Present Illness History of Present Illness Chief Complaint: nose bleed Narrative: 68-year-old male with a past medical history of COPD, A-fib only on aspirin, and history of multiple episodes of epistaxis who presents emergency department again for nosebleed. Patient stated that he started bleeding about an hour prior to arrival to the emergency department. Pressure was applied and bleeding had slowed but there is still some blood dripping from the nose. Patient denies any trauma, lightheadedness, dizziness, nausea vomiting diarrhea constipation or shortness of breath. In the emergency department the patient was noted as having normal vital signs, CBC and CMP. He expressed a large clots after blowing his nose in the emergency department was given Afrin as well as a nasal clamp. After reassessment bleeding appeared to have slowed, with Afrin being reapplied however, an hour later patient continued to bleed patient agreed to packing so Rhino Rocket was soaked in TXA and was placed. Patient did have prolonged. Overnight in the emergency department without bleeding, however patient woke up at 6:30 AM coughed and began to again experience profuse bleeding from both nares. Patient had 7.65 cm Rhino Rocket placed, and Dr. Bhatti of ENT was consulted and dual lumen rapid Rhino was placed with Dr. Zheng being able to adjust lumen and appeared to achieve hemostasis. Dr. Bhatti recommended the patient be admitted for ongoing monitoring, pain control and surveillance of packing. He also stated that if the patient appeared to continue to bleed to make sure that both chambers of dual-lumen packing were filled with air. However, if patient experienced more than just some blood-tinged sputum or dripping and again profusely bleeds, he recommended transfer to [facility] [place] with consultation with interventional radiology for consideration of embolization. Which the emergency room physician paged hospitalist for admission for patient with epistaxis requiring ongoing monitoring and potential transfer. Review of Systems All systems reviewed & are unremarkable except as noted in HPI and below PFSH All Active Problems (Updated 06/19/23 @ 09:08 by Ian Trent MD) (HFpEF) heart failure with preserved ejection fraction (Acute) Acute posterior epistaxis (Acute) Acute anterior epistaxis (Acute) COPD (chronic obstructive pulmonary disease) (Chronic) Closed right clavicular fracture (Acute ~11/2021) Right shoulder pain (Acute) CHF (congestive heart failure) (Chronic) No-show for appointment (Acute) Left leg weakness (Acute) MCL sprain of right knee (Acute) Alcohol abuse (Chronic) Chest discomfort (Chronic) Acute on chronic diastolic heart failure (Acute) Bilateral pleural effusion (Acute) Falls (Acute) Pulmonary nodule (Acute) Acute respiratory failure with hypoxia (Acute) Pneumonia (Acute) Acute respiratory distress (Acute) Femur fracture, right (Acute) Fracture, rib (Acute) A-fib (Chronic) Laceration of digital nerve of left thumb (Acute) Gastritis and duodenitis (Acute) Medical History (Updated 06/19/23 @ 09:08 by Ian Trent MD) Tobacco use Back pain Obesity Chronic pain Asthma Adjustment disorder Pain in left wrist Right hip pain Insomnia Medication monitoring encounter History of depression Opioid withdrawal Cataract Blurred vision Patella-femoral syndrome Trochanteric bursitis Knee pain, right Rib pain Hx of viral pneumonia Lumbar radiculopathy Cocaine abuse Lightheadedness Abdominal pain in male Positive urine drug screen Dyspnea on exertion Voiding dysfunction Clavicle pain Hepatitis C Per H&P: s/p tx. . He had an abc CT earlier this year which showed a normal liver. Arthritis Neck fracture Per pt. states he broke his nevk 5-6 years ago. 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) As treatment for proximal humerus fx (DOI: 11/11/2021) History of surgery on wrist History of cataract surgery History of cataract surgery History of hand surgery Social History Smoking/Tobacco Use Status: Current every day Tobacco Type: cigarettes Smoking risk assessment performed?: Yes Alcohol Intake: current Alcohol Intake frequency: a few times a week Drug use: Never Substance use type: does not use and unknown Housing: apartment Current gender identity: male Do you feel safe at home: Yes Do you feel safe in your relationship?: Yes Additional Social history: lives alone Meds Allergies and Home Medications Allergies Allergy/AdvReac Type Severity Reaction Status Date / Time amlodipine Allergy Unknown Other (See Unverified 06/19/23 07:11 Comment) trazodone Allergy Unknown Other (See Unverified 06/19/23 07:11 Comment) budesonide [From Pulmicort] Allergy Other (See Verified 06/19/23 07:11 Comment) diazepam AdvReac Intermediate Agitation Unverified 06/19/23 07:11 clonidine AdvReac Mild Dry mouth Unverified 06/19/23 07:11 lisinopril AdvReac Mild Cough Unverified 06/19/23 07:11 losartan AdvReac Mild Cough Unverified 06/19/23 07:11 tramadol AdvReac Nauseous Unverified 06/19/23 07:11 Home Medications Medication Instructions Recorded Confirmed Type aspirin 81 mg tablet,delayed 81 mg PO DAILY 01/22/20 06/18/23 History release albuterol sulfate 90 mcg/actuation 2 puff inhalation Q6H PRN PRN 11/23/21 06/18/23 History aerosol inhaler bupropion HCl 150 mg tablet,12 hr 150 mg PO BID 11/23/21 06/18/23 History sustained-release citalopram 20 mg tablet 20 mg PO QAM 11/23/21 06/18/23 History cyclobenzaprine 10 mg tablet 10 mg PO TID PRN PRN 11/23/21 06/18/23 History diclofenac sodium 1 % topical gel 4 g topical BID PRN PRN 11/23/21 06/18/23 History gabapentin 800 mg tablet 800 mg PO TID 11/23/21 06/18/23 History magnesium oxide 400 mg (241.3 mg 400 mg PO DAILY 11/23/21 06/18/23 History magnesium) tablet pantoprazole 40 mg tablet,delayed 40 mg PO DAILY 11/23/21 06/18/23 History release topiramate 50 mg tablet 50 mg PO BID 11/23/21 06/18/23 History triamcinolone acetonide 0.1 % 1 applic topical BID 11/23/21 06/18/23 History topical cream verapamil 120 mg tablet,extended 120 mg PO DAILY 11/23/21 06/18/23 History release zolpidem 10 mg tablet 10 mg PO QHS PRN Insomnia 11/23/21 06/18/23 History albuterol sulfate 2.5 mg/3 mL 2.5 mg (3 mL) UPD Q2H PRN PRN #0 mL 11/29/21 06/18/23 Rx (0.083 %) solution for nebulization ipratropium 0.5 mg-albuterol 3 mg 3 ml UPD Q6H #0 mL 11/29/21 06/18/23 Rx (2.5 mg base)/3 mL nebulization soln polyethylene glycol 3350 17 gram 17 g PO DAILY PRN PRN Constipation 11/29/21 06/18/23 Rx oral powder packet #0 ea [id number] acid 0.4 1 tab PO DAILY 12/27/21 06/18/23 History mg-lycopene 300 mcg-lutein 250 mcg tablet ([employer] Senior) spironolactone 25 mg tablet 25 mg PO DAILY 12/27/21 06/18/23 History vitamin B complex 1 tab PO DAILY 12/27/21 06/18/23 History celecoxib 100 mg capsule 100 mg PO BID 05/15/23 06/18/23 History cholecalciferol (vitamin D3) 50 50 mcg PO DAILY 05/15/23 06/18/23 History mcg (2,000 unit) capsule hydrocodone 10 mg-acetaminophen 1 tab PO QID PRN 05/15/23 06/18/23 History 325 mg tablet metoprolol succinate 50 mg 25 mg PO DAILY 05/15/23 06/18/23 History tablet,extended release 24 hr sumatriptan succinate 25 mg tablet See Rx Instructions .Route 05/16/23 06/18/23 History .COMPLEX PRN amoxicillin 875 mg-potassium 1 tab PO BID #6 tabs 06/19/23 Rx clavulanate 125 mg tablet Exam Narrative Exam Narrative: Older gentleman laying in bed in mild distress to due pain from rhinorocket placement, AOx4, heart RRR, lungs CTAB, abdomen soft, non-tender, non-distended, dual-chamber rhinorocket in place with dried blood surrounding bilateral nares without active bleeding Results Labs 06/19/23 06:36 Labs: Laboratory Results - last 24 hr 06/18/23 06/18/23 06/19/23 23:26 23:27 06:36 WBC 5.99 8.67 RBC 4.55 4.45 Hgb 11.0 L 10.8 L Hct 34.3 L 34.2 L MCV 75 L 77 L MCH 24.2 L 24.3 L MCHC 32.1 31.6 L RDW 20.3 H 20.1 H Plt Count 249 253 MPV 9.7 9.6 Immature Gran % 0.3 0.2 Neutrophils % 45.6 67.2 Lymphocytes % 33.4 16.4 Monocytes % 14.5 12.9 Eosinophils % 5.2 2.4 Basophils % 1.0 0.9 Nucleated RBC % 0.0 0.0 Absolute Neutrophils 2.73 5.82 Absolute Lymphocytes 2.00 1.42 Absolute Monocytes 0.87 H 1.12 H Absolute Eosinophils 0.31 0.21 Absolute Basophils 0.06 0.08 RBC Morphology See Below Polychromasia Present Poikilocytosis 2+ Anisocytosis 2+ PT 13.3 H INR 1.4 H APTT 30.1 Patient ABO/Rh A Positive Antibody Screen NEGATIVE Last Vital Signs Temp 97.2 F L 06/19/23 03:29 Pulse 73 06/19/23 07:39 Resp 20 06/19/23 06:53 BP 137/110 H 06/19/23 07:46 Pulse Ox 98 06/19/23 06:53 PAWSS Have you Been Recently Intoxicated or Drunk Within the Last 30 days?: Yes Have you Ever Experienced Previous Episodes of Alcohol Withdrawal?: No Have you ever Experienced Withdrawal Seizures?: No Have you ever Experienced Delirium Tremens(DT)s?: No Have you ever undergone Alcohol Rehabilitation Treatment (i.e, inpt ot outpatient treatment programs)?: No Have you ever Experienced Blackouts?: No Have you ever Combined Alcohol with other Downers within the last 90 days?: Yes Have you ever Combined Alcohol with any other Substance of Abuse during the last 90 days?: Yes Positive Blood Alcohol level on Presentation? [PCS.BAL]: Unable to Obtain Evidence of Increased Autonomic Activity (i.e. HR>120, tremor, sweating, agitation, nausea)?: Yes Result: 4 Time Spent Time spent with Patient: >75 minutes Time was spent: preparing to see the patient(eg.review tests), obtaining and/or reviewing separately otained hiistory, ordering medications,tests, procedures, referring, communicating with other health med care manager, indepentently interpreting results, counseling the patient and care coordination
[2023-06-19] MEDS: Metoprolol CR 25 MG TABCR PO (08:10)
[2023-06-19] MEDS: Verapamil 80 MG TAB 120 MG PO (08:11)
[2023-06-19] MEDS: Citalopram 20 MG TAB PO (09:33)
[2023-06-19] MEDS: Gabapentin 800 MG TAB PO ×3 (09:33→20:57)
[2023-06-19] MEDS: buPROPion-CR 150 MG TABCR PO ×2 (09:33→20:57)
[2023-06-19] MEDS: Spironolactone 25 MG TAB PO (09:34)
[2023-06-19] MEDS: Pantoprazole 40 MG TABCR PO (09:34)
[2023-06-19] MEDS: Topiramate 50 MG TAB PO ×2 (09:34→20:57)
[2023-06-19] MEDS: Normal Saline Flush 10 ML SYR IVP ×3 (09:34→20:57)
[2023-06-19] MEDS: HYDROcodone 10/Acetaminophen 325 TAB PO ×2 (10:56→21:00)
[2023-06-19] MEDS: ceFAZolin 2 GM/50 ML BAG IVPB ×2 (11:35→20:58)
[2023-06-20 00:17] VITALS: BP 117/91; PULSE 115; RESP 17; TEMP 36; O2SAT 97
[2023-06-20] MEDS: MORPHine 2 MG/ML SYR IVP (00:55)
[2023-06-20 03:34] VITALS: BP 109/94; PULSE 109; RESP 20; TEMP 36.1; O2SAT 99
[2023-06-20] MEDS: ceFAZolin 2 GM/50 ML BAG IVPB ×3 (03:45→23:35)
[2023-06-20] MEDS: HYDROcodone 10/Acetaminophen 325 TAB PO ×3 (03:46→20:13)
[2023-06-20 06:28] LABS: HCT 33.2 % (40.0-50.0); HGB 10.4 g/dL (13.5-17.5); MCH 24.4 pg (27.0-33.0); MCHC 31.3 % (32.0-36.0); MCV 78 fL (80-95); MPV 10.4 fL (8.0-11.0); Platelet Count 237 10^3/uL (130-400); RBC 4.27 10^6/uL (4.36-5.78); RDW-SD 57.2 fL; WBC 9.55 10^3/uL (4.4-10.8)
[2023-06-20 06:41] LABS: RDW 21.1 % (11.8-14.1)
[2023-06-20 06:49] LABS: Anion Gap 11.1 mmol/L (3-11); BUN 23 mg/dL (7-18); CO2 23.9 mmol/L (21.0-32.0); CREATININE 1.4 mg/dL (0.70-1.30); Calcium 8.5 mg/dL (8.5-10.1); Chloride 102 mmol/L (98-107); Estimated GFR 54.75 (mL/min/1.73m2); Glucose 145 mg/dL (74-106); Magnesium 1.8 mg/dL (1.8-2.4); Potassium 4.7 mmol/L (3.5-5.1); Sodium 137 mmol/L (136-145)
[2023-06-20 08:01] VITALS: BP 118/99; PULSE 97; RESP 19; TEMP 36.2; O2SAT 94
[2023-06-20] MEDS: Normal Saline Flush 10 ML SYR IVP ×3 (08:22→22:29)
[2023-06-20] MEDS: buPROPion-CR 150 MG TABCR PO ×2 (08:23→21:13)
[2023-06-20] MEDS: Citalopram 20 MG TAB PO (08:23)
[2023-06-20] MEDS: Topiramate 50 MG TAB PO ×2 (08:24→21:13)
[2023-06-20] MEDS: Pantoprazole 40 MG TABCR PO (08:25)
[2023-06-20] MEDS: Spironolactone 25 MG TAB PO (08:26)
[2023-06-20] MEDS: Gabapentin 800 MG TAB PO ×3 (08:26→21:13)
[2023-06-20] MEDS: Metoprolol CR 50 MG TABCR 25 MG PO (08:27)
--- NOTE | 2023-06-20 09:30 | PDOC.CMIN ---
Date of service: 06/20/23 Care Management Initial Assmt Initial Assessment REASON FOR HOSPITALIZATION:: Epistaxis PREVIOUS FUNCTIONAL STATUS/SOCIAL/FAMILY SUPPORTS:: Derrick lives in [facility] with Tarah. He is functional at baseline and able to perform all his own ADLs. CURRENT FUNCTIONAL STATUS:: Derrick was sitting up in a chair when talking with CM. He reports he is in pain at an 8 right now and has not slept in days because the last time he laid back to sleep his nose started bleeding again profusely. He states that when he is awake and alert he can know right away if his nose starts to bleed again. He reports in addition to not sleeping, he also has not been able to eat much other than custard. Pt is aware if not able to stop the bleeding, he may need to transfer to [facility]. CM reviewed with MD and RN of Drerick's concerns specific to pain management and falling asleep. ADVANCE DIRECTIVES:: None on file with [facility] Has patient been provided with info about the portal/API?: Yes Did the patient sign up for the portal?: No CODE STATUS:: Full Code INSURANCE COVERAGE / FINANCIAL ISSUES:: Medicare Part A & B Medicaid of [place] CURRENT HOME/COMMUNITY SERVICES/EQUIPMENT:: Outpatient PT PRIMARY CARE PHYSICIAN:: Sherri Guzman M.D. PATIENT/FAMILY EDUCATION NEEDS:: Review discharge instructions and plan of care as prescribed. Discussion of Ask Me Three self care needs upon discharge. TRANSPORTATION:: Via private vehicle by family. PLAN:: Derrick will discharge home when medically cleared. He will transport via private vehicle by family. He will follow up with community providers and discharge plan of care. [facility] All Active Problems (Updated 06/19/23 @ 09:08 by Ian Trent MD) (HFpEF) heart failure with preserved ejection fraction (Acute) Acute posterior epistaxis (Acute) Acute anterior epistaxis (Acute) COPD (chronic obstructive pulmonary disease) (Chronic) Closed right clavicular fracture (Acute ~11/2021) Right shoulder pain (Acute) CHF (congestive heart failure) (Chronic) No-show for appointment (Acute) Left leg weakness (Acute) MCL sprain of right knee (Acute) Alcohol abuse (Chronic) Chest discomfort (Chronic) Acute on chronic diastolic heart failure (Acute) Bilateral pleural effusion (Acute) Falls (Acute) Pulmonary nodule (Acute) Acute respiratory failure with hypoxia (Acute) Pneumonia (Acute) Acute respiratory distress (Acute) Femur fracture, right (Acute) Fracture, rib (Acute) A-fib (Chronic) Laceration of digital nerve of left thumb (Acute) Gastritis and duodenitis (Acute) Medical History (Updated 06/19/23 @ 09:08 by Ina Trent MD) Tobacco use Back pain Obesity Chronic pain Asthma Adjustment disorder Pain in left wrist Right hip pain Insomnia Medication monitoring encounter History of depression Opioid withdrawal Cataract Blurred vision Patella-femoral syndrome Trochanteric bursitis Knee pain, right Rib pain Hx of viral pneumonia Lumbar radiculopathy Cocaine abuse Lightheadedness Abdominal pain in male Positive urine drug screen Dyspnea on exertion Voiding dysfunction Clavicle pain Hepatitis C Per H&P: s/p tx. . He had an abc CT earlier this year which showed a normal liver. Arthritis Neck fracture Per pt. states he broke his nevk 5-6 years ago. 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) As treatment for proximal humerus fx (DOI: 11/11/2021) History of surgery on wrist History of cataract surgery History of cataract surgery History of hand surgery Social History Smoking/Tobacco Use Status: Current every day Tobacco Type: cigarettes Smoking risk assessment performed?: Yes Alcohol Intake: current Alcohol Intake frequency: a few times a week Drug use: Never Substance use type: does not use and unknown Housing: apartment Current gender identity: male Do you feel safe at home: Yes Do you feel safe in your relationship?: Yes Additional Social history: lives alone SDOH(Care Management) Screening Will the Patient Participate in the Screening?: Yes Do you worry about having a steady place to live?: no In the past 12 months, have you had to go without electric, gas, oil or water in your home?: no Have you or anyone in your house had to go without enough food to eat?: no Has lack of transportation kept you from medical appointments or from doing things needed for daily living?: no Has anyone in your support network made you feel unsafe for any reason?: no
--- NOTE | 2023-06-20 09:33 | PGE_ITS ---
Date of Service Date of service: 06/20/23 Time of Service: 09:33 Assessment and Plan Assessment and plan (1) Acute posterior epistaxis: Status: Acute Assessment and plan: -Third episode over the last year and a half of severe epistaxis -Hemoglobin currently stable -Dual-lumen rapid Rhino placed in the emergency department and adjusted by ENT Dr. Bhatti -Appreciate recommendations: -Monitor dual lumen rapid Rhino, add additional air if needed -Small amounts of blood-tinged sputum okay -However, if patient has profuse bleeding, will reach out to [facility] [place] [facility] for consideration of transfer and embolization -If patient does not rebleed, can consider removing dual-lumen Rhino on 06/22 or 06/23 -Hold aspirin (2) COPD (chronic obstructive pulmonary disease): Status: Chronic Assessment and plan: -Without acute exacerbation -Continue home inhalers (3) (HFpEF) heart failure with preserved ejection fraction: Status: Acute Assessment and plan: -Without acute exacerbation -Continue home verapamil and spironolactone (4) A-fib: Status: Chronic Assessment and plan: -Currently rate controlled -Continue home Toprol-XL -Hold aspirin as noted above Qualifiers: Atrial fibrillation type: longstanding persistent Qualified Code(s): I48.11 - Longstanding persistent atrial fibrillation Subjective Subjective Interval history since last seen: Patient states that he is a little uncomfortable with the packing in his nose, and that he is coughed up some small blood clots overnight. Otherwise he has no other complaints or concerns Exam Narrative Exam Narrative: Older gentleman laying in bed in mild distress to due pain from rhinorocket placement, AOx4, heart RRR, lungs CTAB, abdomen soft, non-tender, non-distended, dual-chamber rhinorocket in place with dried blood surrounding bilateral nares without active bleeding Objective Last Vital Signs Temp 97.2 F L 06/20/23 08:01 Pulse 97 H 06/20/23 08:01 Resp 19 06/20/23 08:01 BP 118/99 H 06/20/23 08:01 Pulse Ox 94 06/20/23 08:01 Laboratory Results - last 24 hr 06/20/23 06:04 WBC 9.55 RBC 4.27 L Hgb 10.4 L Hct 33.2 L MCV 78 L MCH 24.4 L MCHC 31.3 L RDW 21.1 H Plt Count 237 MPV 10.4 Sodium 137 Potassium 4.7 Chloride 102 Carbon Dioxide 23.9 Anion Gap 11.1 H BUN 23 H Creatinine 1.4 H Est GFR (CKD-EPI 2020) 54.75 Glucose 145 H Calcium 8.5 Magnesium 1.8 PAWSS Have you Been Recently Intoxicated or Drunk Within the Last 30 days?: Yes Have you Ever Experienced Previous Episodes of Alcohol Withdrawal?: No Have you ever Experienced Withdrawal Seizures?: No Have you ever Experienced Delirium Tremens(DT)s?: No Have you ever undergone Alcohol Rehabilitation Treatment (i.e, inpt ot outpatient treatment programs)?: No Have you ever Experienced Blackouts?: No Have you ever Combined Alcohol with other Downers within the last 90 days?: Yes Have you ever Combined Alcohol with any other Substance of Abuse during the last 90 days?: Yes Positive Blood Alcohol level on Presentation? [PCS.BAL]: Unable to Obtain Evidence of Increased Autonomic Activity (i.e. HR>120, tremor, sweating, agitation, nausea)?: Yes Result: 4 Time Spent with Patient Time Spent with Patient: >50 minutes Time was spent: preparing to see the patient(eg.review tests), obtaining and/or reviewing separately otained hiistory, ordering medications,tests, procedures, referring, communicating with other health care program resident, indepentently interpreting results, counseling the patient and care coordination
[2023-06-20 11:41] VITALS: BP 119/95; PULSE 64; RESP 17; TEMP 35.9; O2SAT 94
[2023-06-20 16:42] VITALS: BP 112/101; PULSE 68; RESP 19; TEMP 37; O2SAT 90
[2023-06-20 20:15] VITALS: BP 115/87; PULSE 116; RESP 22; TEMP 36.3; O2SAT 92
[2023-06-20 20:41] LABS: HCT 33.7 % (40.0-50.0); HGB 10.1 g/dL (13.5-17.5); MCH 23.9 pg (27.0-33.0); MCV 80 fL (80-95); Platelet Count 241 10^3/uL (130-400); RBC 4.23 10^6/uL (4.36-5.78); RDW-SD 60.1 fL; WBC 8.35 10^3/uL (4.4-10.8)
[2023-06-20 20:53] LABS: ALT 22 U/L (16-63); AST 42 U/L (15-37); Albumin 3.1 g/dL (3.4-5.0); Alkaline Phosphatase 107 U/L (46-116); Bilirubin, Direct 0.4 mg/dL (0.0-0.2); Bilirubin, Total 0.6 mg/dL (0.2-1.0); INR 1.5 (0.9-1.1); PTT Activated 28.8 sec (23.6-32.8); Prothrombin Time 14.5 sec (9.1-11.1); Total Protein 7.3 g/dL (6.4-8.2)
[2023-06-20 20:54] LABS: RDW 21.2 % (11.8-14.1)
[2023-06-20] MEDS: hydrOXYzine HCL 25 MG TAB PO (21:13)
[2023-06-20] MEDS: MORPHine 4 MG/ML SYR IVP (23:54)
[2023-06-21] VITALS (11 sets, daily range): BP systolic 96–124; BP diastolic 65–94; PULSE 75–122; RESP 16–22; TEMP 36.6–38.5; O2SAT 92–97
--- NOTE | 2023-06-21 | DI.RAD_ITS ---
Exam(s) XR PORTABLE CHEST AP EXAM: XR PORTABLE CHEST AP CLINICAL HISTORY: SOB TECHNIQUE: 2D digital imaging was performed. COMPARISON: CR XR PORTABLE CHEST AP from 11/25/2021 FINDINGS: Exam is limited by poor Perma pulmonary inflation. LUNGS: Clear. No pleural abnormality seen. HEART: Enlarged, unchanged AORTA: Normal diameter. BONES: Left shoulder prosthesis. Degenerative changes in the thoracic spine. Soft tissues: Unremarkable. IMPRESSION: No acute findings. DATA REPOSITORY: RADIATION DOSE DELIVERED:
[2023-06-21] MEDS: PHYTONADIONE 10 MG in Normal Saline 50 ML 200 MG IVPB (00:15)
[2023-06-21] MEDS: MORPHine 4 MG/ML SYR IVP ×7 (01:49→22:12)
[2023-06-21] MEDS: ceFAZolin 2 GM/50 ML BAG IVPB ×3 (06:43→22:11)
[2023-06-21 06:51] LABS: HCT 32.9 % (40.0-50.0); MCH 24.2 pg (27.0-33.0); MCHC 30.4 % (32.0-36.0); MCV 80 fL (80-95); Platelet Count 201 10^3/uL (130-400); RBC 4.13 10^6/uL (4.36-5.78); RDW-SD 59.5 fL; WBC 7.39 10^3/uL (4.4-10.8)
[2023-06-21 07:01] LABS: INR 1.4 (0.9-1.1); Prothrombin Time 13.8 sec (9.1-11.1)
[2023-06-21 07:02] LABS: ALT 33 U/L (16-63); AST 88 U/L (15-37); Alkaline Phosphatase 103 U/L (46-116); Bilirubin, Direct 0.4 mg/dL (0.0-0.2); Bilirubin, Total 0.7 mg/dL (0.2-1.0); Total Protein 7.1 g/dL (6.4-8.2)
[2023-06-21 07:13] LABS: RDW 21.2 % (11.8-14.1)
--- NOTE | 2023-06-21 07:44 | PGE_ITS ---
Date of Service Date of service: 06/21/23 Time of Service: 07:44 Assessment and Plan Assessment and plan (1) Acute posterior epistaxis: Status: Acute Assessment and plan: -Third episode over the last year and a half of severe epistaxis -Hemoglobin currently stable -Dual-lumen rapid Rhino placed in the emergency department and adjusted by ENT Dr. Bhatti on admission -Appreciate recommendations: -Monitor dual lumen rapid Rhino, add additional air if needed -Small amounts of blood-tinged sputum okay -However, if patient has profuse bleeding, will reach out to [facility] for consideration of transfer and embolization -If patient does not rebleed, can consider removing dual-lumen Rhino on 06/22 or 06/23 -Hold aspirin -Patient had episode of bleeding around 1900 on 06/20/2023 that resolved with reinflation of balloons -Another episode of bleeding at around 7 AM in the morning of 06/21/2023 that also improved with reinflation of ballons (2) COPD (chronic obstructive pulmonary disease): Status: Chronic Assessment and plan: -Without acute exacerbation -Continue home inhalers (3) (HFpEF) heart failure with preserved ejection fraction: Status: Acute Assessment and plan: -Without acute exacerbation -Continue home verapamil and spironolactone (4) A-fib: Status: Chronic Assessment and plan: -Currently rate controlled -Continue home Toprol-XL -Hold aspirin as noted above Qualifiers: Atrial fibrillation type: longstanding persistent Qualified Code(s): I48.11 - Longstanding persistent atrial fibrillation Subjective Subjective Interval history since last seen: Patient reportedly had episode of bleeding overnight which resolved after reinflation of balloons. He also had an episode this morning after coughing, which also improved after reinflation of balloons. After again achieving hemostasis patient stated that he felt significantly better. Exam Narrative Exam Narrative: Older gentleman laying in bed in mild distress to due pain from rhinorocket placement, AOx4, heart RRR, lungs CTAB, abdomen soft, non-tender, non-distended, dual-chamber rhinorocket in place with dried blood surrounding bilateral nares w ithout active bleeding Objective Last Vital Signs Temp 99.3 F 06/21/23 06:56 Pulse 122 H 06/21/23 06:56 Resp 22 06/21/23 06:56 BP 124/94 H 06/21/23 06:56 Pulse Ox 94 06/21/23 06:56 Laboratory Results - last 24 hr 06/20/23 06/21/23 20:31 06:40 WBC 8.35 7.39 RBC 4.23 L 4.13 L Hgb 10.1 L 10.0 L Hct 33.7 L 32.9 L MCV 80 80 MCH 23.9 L 24.2 L MCHC 30.0 L 30.4 L RDW 21.2 H 21.2 H Plt Count 241 201 MPV 10.0 10.0 PT 14.5 H 13.8 H INR 1.5 H 1.4 H APTT 28.8 Total Bilirubin 0.6 0.7 Conjugated Bilirubin 0.4 H 0.4 H AST 42 H 88 H ALT 22 33 Alkaline Phosphatase 107 103 Total Protein 7.3 7.1 Albumin 3.1 L 3.0 L PAWSS Have you Been Recently Intoxicated or Drunk Within the Last 30 days?: Yes Have you Ever Experienced Previous Episodes of Alcohol Withdrawal?: No Have you ever Experienced Withdrawal Seizures?: No Have you ever Experienced Delirium Tremens(DT)s?: No Have you ever undergone Alcohol Rehabilitation Treatment (i.e, inpt ot outpatient treatment programs)?: No Have you ever Experienced Blackouts?: No Have you ever Combined Alcohol with other Downers within the last 90 days?: Yes Have you ever Combined Alcohol with any other Substance of Abuse during the last 90 days?: Yes Positive Blood Alcohol level on Presentation? [PCS.BAL]: Unable to Obtain Evidence of Increased Autonomic Activity (i.e. HR>120, tremor, sweating, agitation, nausea)?: Yes Result: 4 Time Spent with Patient Time Spent with Patient: >50 minutes Time was spent: preparing to see the patient(eg.review tests), obtaining and/or reviewing separately otained hiistory, ordering medications,tests, procedures, referring, communicating with other health primary care sales representative, indepentently interpreting results, counseling the patient and care coordination
[2023-06-21] MEDS: Gabapentin 800 MG TAB PO ×3 (07:47→20:05)
[2023-06-21] MEDS: Spironolactone 25 MG TAB PO (07:47)
[2023-06-21] MEDS: Metoprolol CR 50 MG TABCR 25 MG PO (07:47)
[2023-06-21] MEDS: Pantoprazole 40 MG TABCR PO (07:48)
[2023-06-21] MEDS: buPROPion-CR 150 MG TABCR PO ×2 (07:49→20:06)
[2023-06-21] MEDS: Topiramate 50 MG TAB PO ×2 (07:49→20:06)
[2023-06-21] MEDS: Citalopram 20 MG TAB PO (07:49)
[2023-06-21] MEDS: Normal Saline Flush 10 ML SYR IVP ×6 (07:51→20:06)
--- NOTE | 2023-06-21 09:59 | PDOC.CMDIS ---
Date of service: 06/21/23 LACE Index Scoring Tool Questions: Length of Stay (in days): 2 Was the patient admitted via the E.D.?: Yes Comorbidities: Congestive Heart Failure, Chronic Pulmonary Disease and Liver or Renal Disease E.D. Visits: 2 Answers: Total Score: 12 Risk of Readmission: High Risk Care Management Discharge Plan Reason for Hospitalization: Epistaxis Discharge Plan: Derrick will discharge home when medically cleared. He will transport via private vehicle by family. He will follow up with community providers and discharge plan of care. Patient/Family Education Needs: Review discharge instructions and plan of care as prescribed. Discussion of Ask Me Three self care needs upon discharge. SDOH Health Related Social Needs: No Data to Display
--- NOTE | 2023-06-21 11:29 | PDOC.CMPRO ---
Date of service: 06/21/23 Care Management Progress Note Progress Note Text Progress Note Text: S/O: Derrick was sitting up in a chair eating when talking with CM. Derrick shared he was able to get some sleep today and states it is one of the things that will help his body get stronger in addition to eating but he does not tend to eat much even when home. CM reviewed M[facility] services, that Derrick uninterested at this time. Derrcik shared he receives house cleaning services through [facility] and said his CM in the hospital should be in contact with his manager assembly Samantha Trevino in the community regarding discharge updates. CM called [facility] to and confirmed Derrick receives [facility] . Derrick also shared he has [facility]. CM following. A: Derrick is a 68 year old admitted to [facility] 06/19/23 for epistaxis. P: Derrick will discharge home when medically cleared. He will transport via private vehicle by family. He will follow up with community providers and discharge plan of care SDOH(Care Management) Screening Will the Patient Participate in the Screening?: Yes Do you worry about having a steady place to live?: no In the past 12 months, have you had to go without electric, gas, oil or water in your home?: no Have you or anyone in your house had to go without enough food to eat?: no Has lack of transportation kept you from medical appointments or from doing things needed for daily living?: no Has anyone in your support network made you feel unsafe for any reason?: no
--- NOTE | 2023-06-21 12:43 | W.NUTRFU ---
Date of service: 06/21/23 Time of Service: 09:45 Nutrition Note NOTE: 89yo male admitted with acute epistaxis, with PMH of COPD (current tobacco use), CHF, etoh abuse with gastritis, pulmonary nodule. Low appetite reported by pt with <50% intake reported at meals here and pt reports living alone in apartment with very inconsistent meals - tends to skip often and eat small amounts. Reports drinking (ice tea) more often than having meals. Usual healthy body weight for Ge[place] reported by him at 180lbs (81.8kg) and states he was this weight about 2 weeks ago. Current weight documented in error at 363kg. Was 72.6kg (159lbs) 1 month ago. Takes MVI(Cerovite Sr.) which includes folic acid, thiamine, B12, Vit C and a small amount of other vitamins and minerals. Discussed ONS at or between meals to help increase protein-energy intake and he is agreeable to try one at lunch and if he likes it will consider drinking daily or on additional trays. Estimated energy needs: based on last accurate weight of 72.5kg - 1801kcals ([id number]), 72-85g protein (1-1.2g per kg) 1800mL fluid (1 mL per required kcal) Requested permission to complete nutrition focused physical exam, which patient declined but just on observation noted moderate loss of sq fat around orbital(sunken) and buccal (flat/depressed) areas with moderate muscle loss of the temporal region with scooped appearance. Was able to notice some milk to moderate squaring of the shoulders at acromion and moderate muscle wasting in pectoralis with protrusion of clavical. Nutrition diagnosis: E44.0 Moderate Malnutrition - moderate malnutrition related to inadequate oral intake in the setting of chronic disease/condition (COPD, CHF) and environmental circumstances (history of etoh abuse, current smoker and pt describes skipping meals frequently) resulting in meeting <75% of his energy needs for >1 month; with moderate loss of fat and muscle noted as above on visual NFPE, and self reported decrease in functional status (pt has apartment cleaned by staff at [facility] due to decrease ADLs) Recommend daily weights, Multivitamin tab with minerals, Liquid protein concerntrate TID to supply 45 grams protein, B12 and folate labs. Pt andre trial ONS drink and will continue/increase depending on tolerance/preference. Will monitor labs, weight, intake. Time Spent in Nutritional Counseling and Treatment: 20 minutes
[2023-06-21] MEDS: Acetaminophen 325 MG TAB PO (16:39)
[2023-06-21 17:14] LABS: HCT 31.1 % (40.0-50.0); MCHC 30.2 % (32.0-36.0); MCV 79 fL (80-95); MPV 10.4 fL (8.0-11.0); Platelet Count 173 10^3/uL (130-400); RBC 3.92 10^6/uL (4.36-5.78); RDW 20.7 % (11.8-14.1); RDW-SD 58.9 fL; WBC 6.64 10^3/uL (4.4-10.8)
[2023-06-21 17:17] LABS: HGB 9.4 g/dL (13.5-17.5)
[2023-06-21] MEDS: hydrOXYzine HCL 25 MG TAB PO (20:05)
[2023-06-22] VITALS (11 sets, daily range): BP systolic 81–117; BP diastolic 61–95; PULSE 64–95; RESP 14–24; TEMP 36.4–38.2; O2SAT 91–97
[2023-06-22] MEDS: MORPHine 4 MG/ML SYR IVP ×5 (04:42→20:42)
[2023-06-22] MEDS: Acetaminophen 325 MG TAB PO ×3 (04:42→20:18)
[2023-06-22 07:20] LABS: Lactate 2.6 mmol/L (0.6-1.4)
[2023-06-22 07:32] LABS: INR 1.5 (0.9-1.1); Prothrombin Time 14.6 sec (9.1-11.1)
[2023-06-22 07:38] LABS: ALT 57 U/L (16-63); AST 218 U/L (15-37); Albumin 2.8 g/dL (3.4-5.0); Alkaline Phosphatase 101 U/L (46-116); Bilirubin, Direct 0.4 mg/dL (0.0-0.2); Bilirubin, Total 0.6 mg/dL (0.2-1.0); Total Protein 6.6 g/dL (6.4-8.2)
[2023-06-22 07:53] LABS: Procalcitonin < 0.1 ng/mL
[2023-06-22] MEDS: Normal Saline Flush 10 ML SYR IVP ×5 (09:04→17:54)
[2023-06-22] MEDS: Spironolactone 25 MG TAB PO (09:05)
[2023-06-22] MEDS: buPROPion-CR 150 MG TABCR PO ×2 (09:05→20:19)
[2023-06-22] MEDS: Topiramate 50 MG TAB PO ×2 (09:06→20:18)
[2023-06-22] MEDS: Citalopram 20 MG TAB PO (09:06)
[2023-06-22] MEDS: Pantoprazole 40 MG TABCR PO (09:06)
[2023-06-22] MEDS: Gabapentin 800 MG TAB PO ×3 (09:06→20:18)
[2023-06-22] MEDS: Metoprolol CR 50 MG TABCR 25 MG PO (09:40)
[2023-06-22] MEDS: CEFEPIME 1 GM in Normal Saline 50 ML IVPB ×2 (09:53→17:00)
--- NOTE | 2023-06-22 09:57 | PGE_ITS ---
Date of Service Date of service: 06/22/23 Time of Service: 10:12 Assessment and Plan Assessment and plan (1) Acute posterior epistaxis: Status: Acute Assessment and plan: -Third episode over the last year and a half of severe epistaxis -Hemoglobin currently stable -Dual-lumen rapid Rhino placed in the emergency department and adjusted by ENT Dr. Bhatti on admission -Appreciate recommendations: -Monitor dual lumen rapid Rhino, add additional air if needed -Small amounts of blood-tinged sputum okay -started patient a ancef -However, if patient has profuse bleeding, will reach out to [facility] and IR for consideration of transfer and embolization -If patient does not rebleed, can consider removing dual-lumen Rhino on 06/22 or 06/23 -Hold aspirin -Patient had episode of bleeding around 1900 on 06/20/2023 that resolved with reinflation of balloons -Another episode of bleeding at around 7 AM in the morning of 06/21/2023 that also improved with reinflation of ballons -Patient developed fever overnight 06/20, antibiotics switched from ancef to cefepime (2) COPD (chronic obstructive pulmonary disease): Status: Chronic Assessment and plan: -Without acute exacerbation -Continue home inhalers (3) (HFpEF) heart failure with preserved ejection fraction: Status: Acute Assessment and plan: -Without acute exacerbation -Continue home verapamil and spironolactone (4) A-fib: Status: Chronic Assessment and plan: -Currently rate controlled -Continue home Toprol-XL -Hold aspirin as noted above Qualifiers: Atrial fibrillation type: longstanding persistent Qualified Code(s): I48.11 - Longstanding persistent atrial fibrillation Subjective Subjective Interval history since last seen: Patient states that he is doing well this morning. He understands given that he had a fever overnight his antibiotics were changed. He states that he has not had any further episode of bleeding since yesterday morning 06/21/2023. He has no other complaints or concerns at this time. Exam Narrative Exam Narrative: Older gentleman laying in bed in mild distress to due pain from rhinorocket placement, AOx4, heart RRR, lungs CTAB, abdomen soft, non-tender, non-distended, dual-chamber rhinorocket in place with dried blood surrounding bilateral nares without active bleeding Objective Last Vital Signs Temp 97.5 F L 06/22/23 08:08 Pulse 95 H 06/22/23 09:00 Resp 20 06/22/23 04:02 BP 106/62 06/22/23 09:05 Pulse Ox 93 06/22/23 04:02 Laboratory Results - last 24 hr 06/21/23 06/22/23 17:08 07:04 WBC 6.64 RBC 3.92 L Hgb 9.4 L Hct 31.1 L MCV 79 L MCH 24.0 L MCHC 30.2 L RDW 20.7 H Plt Count 173 MPV 10.4 PT 14.6 H INR 1.5 H VBG Lactate 2.6 H* Total Bilirubin 0.6 Conjugated Bilirubin 0.4 H AST 218 H ALT 57 Alkaline Phosphatase 101 Total Protein 6.6 Albumin 2.8 L Procalcitonin < 0.1 PAWSS Have you Been Recently Intoxicated or Drunk Within the Last 30 days?: Yes Have you Ever Experienced Previous Episodes of Alcohol Withdrawal?: No Have you ever Experienced Withdrawal Seizures?: No Have you ever Experienced Delirium Tremens(DT)s?: No Have you ever undergone Alcohol Rehabilitation Treatment (i.e, inpt ot outpatient treatment programs)?: No Have you ever Experienced Blackouts?: No Have you ever Combined Alcohol with other Downers within the last 90 days?: Yes Have you ever Combined Alcohol with any other Substance of Abuse during the last 90 days?: Yes Positive Blood Alcohol level on Presentation? [PCS.BAL]: Unable to Obtain Evidence of Increased Autonomic Activity (i.e. HR>120, tremor, sweating, agitation, nausea)?: Yes Result: 4 Time Spent with Patient Time Spent with Patient: >50 minutes Time was spent: preparing to see the patient(eg.review tests), obtaining and/or reviewing separately otained hiistory, ordering medications,tests, procedures, referring, communicating with other health youth career specialist, indepentently interpreting results, counseling the patient and care coordination
--- NOTE | 2023-06-22 11:15 | NUR.NOTE ---
0900 vitals indicated patient blood pressure 75/64, auto-cuff on left arm. Performed by student nurse: Dixie Kelly. Student nurse consulted with patient's assigned RN and Dr. Trent about low BP before passing AM Metoprolol medication to patient. Patient's assigned RN took auto-cuff BP on patient's right arm with similarly low reading with Dr. Trent witnessing. Assigned RN then took auto-cuff BP on patient's left arm with similar/compatible reading. Dr. Trent performed a visual manual BP reading on patient's right arm and obtained a BP reading higher than the previous readings performed by student and assigned RN. At approximately 9:40AM student and their instructor passed Metoprolol medication as per Dr. Trent:
--- NOTE | 2023-06-22 11:21 | PHACLINREV_ITS ---
Pharmacy Admission Review Admission Clinical Review Admission Pharmacy Review: (HFpEF) heart failure with preserved ejection fraction (Acute) Acute posterior epistaxis (Acute) amlodipine Allergy (Unknown, Unverified 06/19/23 07:11) Other (See Comment) trazodone Allergy (Unknown, Unverified 06/19/23 07:11) Other (See Comment) budesonide [From Pulmicort] Allergy (Verified 06/19/23 07:11) Other (See Comment) diazepam Adverse Reaction (Intermediate, Unverified 06/19/23 07:11) Agitation clonidine Adverse Reaction (Mild, Unverified 06/19/23 07:11) Dry mouth lisinopril Adverse Reaction (Mild, Unverified 06/19/23 07:11) Cough losartan Adverse Reaction (Mild, Unverified 06/19/23 07:11) Cough tramadol Adverse Reaction (Unverified 06/19/23 07:11) Nauseous Resuscitation Status Full Code Height 5 ft 10 in Weight 165.2 kg Comments Comments/Follow Ups: Change overnight: Chest xray: no findings, Fever x ~ 12 hours: Cefazolin changed to Cefepime, pain 6/10 (Has Morphine and APAP) will follow, patient will be here for the weekend, currently has Rhino packing/ballon in place, if profuse bleeding may need to transfer Did receive VitK inj 06/20 x 1 dose Pharmacy Admission Review Renal Dosing Renal Dosing: BUN 23 mg/dL (7-18) H 06/20/23 06:04 Creatinine 1.4 mg/dL (0.70-1.30) H 06/20/23 06:04 CrCl~78 ml/min Medications needing adjustments: N/A Anticoagulation Anticoagulation: Hgb 9.4 g/dL (13.5-17.5) L 06/21/23 17:08 Hct 31.1 % (40.0-50.0) L 06/21/23 17:08 Plt Count 173 10^3/uL (130-400) 06/21/23 17:08 INR 1.5 (0.9-1.1) H 06/22/23 07:04 Creatinine 1.4 mg/dL (0.70-1.30) H 06/20/23 06:04 DVT Prophylaxis: N/A (Epistaxis) Opiate Usage Evaluate Pain Scale/Pains Meds: Reviewed (Morphine for pain) Scheduled Bowel Reg ordered if on Opiates?: No (Docusate/Miralax prn) Relevant Labs Relevant Labs: Sodium 137 mmol/L (136-145) 06/20/23 06:04 Potassium 4.7 mmol/L (3.5-5.1) 06/20/23 06:04 Chloride 102 mmol/L (98-107) 06/20/23 06:04 Magnesium 1.8 mg/dL (1.8-2.4) 06/20/23 06:04 H/H down 9.4/31.1 Lactate elevated 2.6 Procal <0.1 Liver panel: elevated AST (218) and Bili (0.4) Cardiac Review Cardiac Review: Toprol, Verapamil, Sprinolactone BP, HR, EF%: Reviewed (Does have Afib: BP 106/62 and lower, HR 60-120's) IV to PO Switch IV Medications: Reviewed (Antibiotics, Morphine) Home Meds Relevent Home Meds Not ordered & why?: Aspirin & Celebrex-hold w/bleeding, Vit- D, Cyclobenzaprine prn, Diclofenac gel, [place] (has Morphine for pain), Vit B, Zolpidem Current Meds Current Medication Order Review: Reviewed (Citalopram could potentially increase the bleeding risk, but benefits outweigh the risk of stopping or reducing the SSRI and withdrawl) Pharmacy Antibiotic Review Relevant Labs: Relevant Labs 06/22/23 07:04 Procalcitonin < 0.1 Blood cultures pending drawn 06/21/23 Pharmacy Antibiotic Activity: 48 hour review Comments: Cefazolin changed to Cefepime overnight d/t fever, Blood cultures drawn and pending Comments Comments/Follow Ups: Change overnight: Chest xray: no findings, Fever x ~ 12 hours: Cefazolin changed to Cefepime, pain / (Has Morphine and APAP) will follow, patient will be here for the weekend, currently has Rhino packing/ballon in place, if profuse bleeding may need to transfer Did receive VitK inj 06/20 x 1 dose
[2023-06-22] MEDS: Polyethylene Glycol 3350 17 GM PACKET PO (14:24)
--- NOTE | 2023-06-22 15:05 | PDOC.CMPRO ---
Date of service: 06/22/23 Care Management Progress Note Progress Note Text Progress Note Text: S/O: Derrick was sitting up in bed when talking with CM. He reports he was able to on his own, remove substance from his right nostril and felt relieved about that. He described his previous [facility] cauterizing experience and hoped that same procedure could be completed here but knows if not he would be getting it completed at [facility] if it is needed. Derrick reports he has been in contact with his [facility] case briefer Samantha Trevino. CM following. A: Derrick is a 68 year old admitted to [facility] 06/19/23 for epistaxis. P: Derrick will discharge home when medically cleared. He will transport via private vehicle by family. He will follow up with community providers and discharge plan of care. HE will resume community based service supports. SDOH(Care Management) Screening Will the Patient Participate in the Screening?: Yes Do you worry about having a steady place to live?: no In the past 12 months, have you had to go without electric, gas, oil or water in your home?: no Have you or anyone in your house had to go without enough food to eat?: no Has lack of transportation kept you from medical appointments or from doing things needed for daily living?: no Has anyone in your support network made you feel unsafe for any reason?: no
[2023-06-22] MEDS: Lidocaine 5% Patch 1 PATCH TP (23:16)
[2023-06-23] MEDS: Normal Saline Flush 10 ML SYR IVP ×9 (00:08→21:09)
[2023-06-23] MEDS: Acetaminophen 325 MG TAB PO ×2 (00:32→07:49)
[2023-06-23] MEDS: MORPHine 4 MG/ML SYR IVP ×7 (00:33→21:08)
[2023-06-23] MEDS: CEFEPIME 1 GM in Normal Saline 50 ML IVPB ×3 (00:42→16:02)
[2023-06-23 02:42] VITALS: BP 99/76; PULSE 84; RESP 16; O2SAT 92
[2023-06-23 07:23] VITALS: BP 99/69; PULSE 80; RESP 16; TEMP 36.2; O2SAT 95
[2023-06-23] MEDS: Spironolactone 25 MG TAB PO (07:49)
[2023-06-23] MEDS: Gabapentin 800 MG TAB PO ×3 (07:49→21:07)
[2023-06-23] MEDS: Citalopram 20 MG TAB PO (07:49)
[2023-06-23] MEDS: Pantoprazole 40 MG TABCR PO (07:49)
[2023-06-23] MEDS: Topiramate 50 MG TAB PO ×2 (07:49→21:08)
[2023-06-23] MEDS: buPROPion-CR 150 MG TABCR PO ×2 (07:50→21:07)
[2023-06-23] MEDS: Metoprolol CR 50 MG TABCR 25 MG PO (07:50)
[2023-06-23 10:07] LABS: HCT 29.3 % (40.0-50.0); HGB 8.8 g/dL (13.5-17.5)
[2023-06-23 10:13] LABS: INR 1.4 (0.9-1.1); Prothrombin Time 13.8 sec (9.1-11.1)
[2023-06-23 10:17] LABS: ALT 67 U/L (16-63); AST 278 U/L (15-37); Albumin 2.8 g/dL (3.4-5.0); Alkaline Phosphatase 108 U/L (46-116); Bilirubin, Direct 0.5 mg/dL (0.0-0.2); Bilirubin, Total 0.6 mg/dL (0.2-1.0); Total Protein 6.5 g/dL (6.4-8.2)
[2023-06-23 11:01] VITALS: BP 129/78; PULSE 94; RESP 16; TEMP 36.1; O2SAT 94
[2023-06-23] MEDS: Polyethylene Glycol 3350 17 GM PACKET PO (11:26)
[2023-06-23] MEDS: Patch Removal 1 EACH TP (11:26)
[2023-06-23 15:09] VITALS: BP 100/81; PULSE 79; RESP 17; TEMP 35.9; O2SAT 99
--- NOTE | 2023-06-23 16:45 | W.PM.PROGNOT ---
Date of Service Date of service: 06/23/23 Time of Service: 11:30 Assessment and Plan Assessment and plan (1) Acute posterior epistaxis: Status: Acute Assessment and plan: -Third episode over the last year and a half of severe epistaxis. Background of nasal cocaine use. -see below re: anemia -Dual-lumen rapid Rhino placed in the emergency department and adjusted by ENT Dr. Bhatti on admission -Appreciate recommendations: -Monitor dual lumen rapid Rhino, add additional air if needed -Small amounts of blood-tinged sputum okay -started patient a ancef -However, if patient has profuse bleeding, will reach out to [facility] and [facility] for consideration of transfer and embolization -If patient does not rebleed, can consider removing dual-lumen Rhino on 06/22 or 06/23 -Holding aspirin -Patient had episode of bleeding around 1900 on 06/20/2023 that resolved with reinflation of balloons -Another episode of bleeding at around 7 AM in the morning of 06/21/2023 that also improved with reinflation of ballons -Patient developed fever overnight 06/20, antibiotics switched from ancef to cefepime, afebrile since -No bleeding currently, but given rebleeds will wait for ENT to pull Sunday (2) COPD (chronic obstructive pulmonary disease): Status: Chronic Assessment and plan: -Without acute exacerbation -Continue home inhalers (3) (HFpEF) heart failure with preserved ejection fraction: Status: Acute Assessment and plan: -Without acute exacerbation -Continue home spironolactone. Also on metoprolol. Consider SGLT2i if he can access this class of medication upon discharge. (4) A-fib: Status: Chronic Assessment and plan: -Currently rate controlled -Continue home Toprol-XL and verapamil. -Hold aspirin as noted above Qualifiers: Atrial fibrillation type: longstanding persistent Qualified Code(s): I48.11 - Longstanding persistent atrial fibrillation (5) Elevated liver enzymes: Status: Acute Assessment and plan: AST elevated on admission, but continueing to trend up, which is concerning. He has had this when ill in the past, but not this high. INR, albmin, and conj bili also off, further raising concern for liver dysfunction. He is at risk for viral hepatitis with cocaine and opioid use history, will get screening. He denies heavy alcohol use. - get liver u/s - viral hepatitis screen - stop acetaminophen for now - monitor. If not improving consider changing stopping celecoxib (a/w ALYSSA) cefepime (can be a/w cholestatic hepatitis) (6) Anemia due to blood loss: Status: Acute Assessment and plan: h/h trending down slowly, continue to monitor. check iron levels with next labs Subjective Subjective Patient reports: voiding w/o difficulty; denies bowel movement, diarrhea, nausea, vomiting, shortness of breath or fever Interval history since last seen: No further nasal bleeding. Pack is not comfortable, but he states he is dealing with it. He is eating some, but appetite not good, trying to drink shakes. Exam Narrative Exam Narrative: Older gentleman sitting up in bed, no acute distress. AOx4, heart RRR, lungs CTAB, abdomen soft, non-tender, non-distended. Liver percussed to ~14cm, no splenomegaly. Trace beto LE edema. dual-chamber rhinorocket in place with dried blood surrounding bilateral nares without active bleeding Objective Last Vital Signs Temp 35.9 C L 06/23/23 15:09 Pulse 79 06/23/23 15:09 Resp 17 06/23/23 15:09 BP 100/81 06/23/23 15:09 Pulse Ox 99 06/23/23 15:09 Laboratory Results - last 24 hr 06/23/23 09:50 Hgb 8.8 L Hct 29.3 L PT 13.8 H INR 1.4 H Total Bilirubin 0.6 Conjugated Bilirubin 0.5 H AST 278 H ALT 67 H Alkaline Phosphatase 108 Total Protein 6.5 Albumin 2.8 L PAWSS Have you Been Recently Intoxicated or Drunk Within the Last 30 days?: Yes Have you Ever Experienced Previous Episodes of Alcohol Withdrawal?: No Have you ever Experienced Withdrawal Seizures?: No Have you ever Experienced Delirium Tremens(DT)s?: No Have you ever undergone Alcohol Rehabilitation Treatment (i.e, inpt ot outpatient treatment programs)?: No Have you ever Experienced Blackouts?: No Have you ever Combined Alcohol with other Downers within the last 90 days?: Yes Have you ever Combined Alcohol with any other Substance of Abuse during the last 90 days?: Yes Positive Blood Alcohol level on Presentation? [PCS.BAL]: Unable to Obtain Evidence of Increased Autonomic Activity (i.e. HR>120, tremor, sweating, agitation, nausea)?: Yes Result: 4 Time Spent with Patient Time Spent with Patient: 35-49 minutes Time was spent: preparing to see the patient(eg.review tests), obtaining and/or reviewing separately otained hiistory, ordering medications,tests, procedures, referring, communicating with other health respiratory care instructor, indepentently interpreting results and counseling the patient
[2023-06-23 19:12] VITALS: BP 97/71; PULSE 91; RESP 16; TEMP 36.2; O2SAT 92
[2023-06-23] MEDS: Docusate Sodium 100 MG CAP PO (21:07)
[2023-06-23] MEDS: hydrOXYzine HCL 25 MG TAB PO (21:08)
[2023-06-23] MEDS: Lidocaine 5% Patch 1 PATCH TP (21:09)
--- NOTE | 2023-06-23 21:14 | RESPIRATORY ---
RT paged to assess pt. breathing. Pt. does not needed any breathing treatment at this time. BBS clear and diminished, SpO2 98% on RA and no respiratory distress noted. Treatment not indicated based on RT evaluation.
[2023-06-24] VITALS (48 sets, daily range): BP systolic 74–163; BP diastolic 40–121; PULSE 51–183; RESP 10–24; TEMP 35.5–36.7; O2SAT 82–100
--- NOTE | 2023-06-24 | DI.RAD_ITS ---
Exam(s) XR PORTABLE CHEST AP POST LINE EXAM: XR PORTABLE CHEST AP POST LINE CLINICAL HISTORY: Acute findings with questionable artifact. TECHNIQUE: 2D digital imaging was performed of the chest. Two images were obtained. PA views were obtained. COMPARISON: CR,XR XR PORTABLE CHEST AP POST LINE from 06/24/2023 FINDINGS: MEDIASTINUM: Normal. HEART: Cardiomegaly. PULMONARY VASCULATURE: Normal. LUNGS: There is again seen a right basilar infiltrate. The left lung remains clear. PLEURAL SPACE: No pleural effusion or pneumothorax. BONE:Within normal limits for the patient's age. Left total reverse shoulder replacement. OTHER FINDINGS:The tip of the right IJ catheter is in good position at the cavoatrial junction. Ther e has been interval placement of a endotracheal tube. The tip of the tube is 5 cm above the sidra. IMPRESSION: 1. The endotracheal and right IJ catheter are in good position. 2. Persistent right basilar infiltrate which may represent pneumonia. DATA REPOSITORY: RADIATION DOSE DELIVERED:
[2023-06-24] MEDS: MORPHine 4 MG/ML SYR IVP ×4 (00:17→07:51)
[2023-06-24] MEDS: Normal Saline Flush 10 ML SYR IVP ×5 (00:17→15:10)
[2023-06-24] MEDS: CEFEPIME 1 GM in Normal Saline 50 ML IVPB ×3 (00:17→15:09)
[2023-06-24] MEDS: Gabapentin 800 MG TAB PO (07:50)
[2023-06-24] MEDS: Metoprolol CR 50 MG TABCR 25 MG PO (07:50)
[2023-06-24] MEDS: Pantoprazole 40 MG TABCR PO (07:50)
[2023-06-24] MEDS: Citalopram 20 MG TAB PO (07:50)
[2023-06-24] MEDS: Topiramate 50 MG TAB PO (07:50)
[2023-06-24] MEDS: buPROPion-CR 150 MG TABCR PO (07:50)
[2023-06-24] MEDS: Spironolactone 25 MG TAB PO (07:51)
[2023-06-24] MEDS: Patch Removal 1 EACH TP (10:04)
--- NOTE | 2023-06-24 13:11 | W.PM.PROGNOT ---
Date of Service Date of service: 06/24/23 Time of Service: 13:11 Assessment and Plan Assessment and plan (1) Acute posterior epistaxis: Status: Acute Assessment and plan: -Third episode over the last year and a half of severe epistaxis. Background of nasal cocaine use. -see below re: anemia -Dual-lumen rapid Rhino placed in the emergency department and adjusted by ENT Dr. Bhatti on admission, again early 06/[address] Cherry from ED. -Appreciate recommendations: -Monitor dual lumen rapid Rhino, add additional air if needed -Small amounts of blood-tinged sputum okay -started patient a ancef -However, if patient has profuse bleeding, will reach out to [facility] and IR for consideration of transfer and embolization -If patient does not rebleed, can consider removing dual-lumen Rhino on 06/22 or 06/23 -Holding aspirin -Patient had episode of bleeding around 1900 on 06/20/2023 that resolved with reinflation of balloons -Another episode of bleeding at around 7 AM in the morning of 06/21/2023 that also improved with reinflation of ballons -Patient developed fever overnight 06/20, antibiotics switched from ancef to cefepime, afebrile since -No bleeding currently, but given rebleeds. Plan remains to wait for ENT to pull Saturday 06/24 (2) COPD (chronic obstructive pulmonary disease): Status: Chronic Assessment and plan: -Without acute exacerbation -Continue home inhalers (3) (HFpEF) heart failure with preserved ejection fraction: Status: Acute Assessment and plan: -Without acute exacerbation -Continue home spironolactone. Also on metoprolol. Consider SGLT2i if he can access this class of medication upon discharge, but will defer to outpatient. (4) A-fib: Status: Chronic Assessment and plan: -Currently rate controlled -Continue home Toprol-XL and verapamil. -Hold aspirin as noted above Qualifiers: Atrial fibrillation type: longstanding persistent Qualified Code(s): I48.11 - Longstanding persistent atrial fibrillation (5) Elevated liver enzymes: Status: Acute Assessment and plan: AST elevated on admission, but continuing to trend up as of 06/22, which is concerning. He has had this when ill in the past, but not this high. INR, albmin, and conj bili also off, further raising concern for liver dysfunction, associated coagulopathy may be contributing to bleeding. He is at risk for viral hepatitis with cocaine and opioid use history, will get screening. He denies heavy alcohol use. - benign exam 06/22 - get liver u/s - should be done 06/24 - viral hepatitis screen - stop acetaminophen 06/22 - If not improving consider changing stopping celecoxib (a/w ALYSSA) and/or cefepime (can be a/w cholestatic hepatitis) - unfortunately he is refusing care this morning, will try again to get him to have labs to reassess. (6) Anemia due to blood loss: Status: Acute Assessment and plan: h/h trending down slowly, continue to monitor. check iron levels with next labs Subjective Subjective Patient reports: tolerating a regular diet; denies diarrhea or vomiting Interval history since last seen: 24 hr events: This morning packing came loose, Dr. Cherry form ED came to re-inflate Refused labs this morning Patient states he hasn't slept in 2 days, wants to be left alone. He lays his head down on the side table and does not respond to questions. Exam Narrative Exam Narrative: Older gentleman sitting on side of bed, head down on table, no acute distress. heart RRR, lungs CTAB, could not exam abdomen today. Trace beto LE edema. dual-chamber rhinorocket in place with dried blood surrounding left nares without active bleeding. Skin somewhat pale/mottled, no jaundice or icterus. No tremor. Objective Last Vital Signs Temp 35.5 C L 06/24/23 11:34 Pulse 95 H 06/24/23 11:34 Resp 22 06/24/23 11:34 BP 110/88 06/24/23 11:34 Pulse Ox 100 06/24/23 11:34 PAWSS Have you Been Recently Intoxicated or Drunk Within the Last 30 days?: Yes Have you Ever Experienced Previous Episodes of Alcohol Withdrawal?: No Have you ever Experienced Withdrawal Seizures?: No Have you ever Experienced Delirium Tremens(DT)s?: No Have you ever undergone Alcohol Rehabilitation Treatment (i.e, inpt ot outpatient treatment programs)?: No Have you ever Experienced Blackouts?: No Have you ever Combined Alcohol with other Downers within the last 90 days?: Yes Have you ever Combined Alcohol with any other Substance of Abuse during the last 90 days?: Yes Positive Blood Alcohol level on Presentation? [PCS.BAL]: Unable to Obtain Evidence of Increased Autonomic Activity (i.e. HR>120, tremor, sweating, agitation, nausea)?: Yes Result: 4 Time Spent with Patient Time Spent with Patient: 35-49 minutes Time was spent: preparing to see the patient(eg.review tests), obtaining and/or reviewing separately otained hiistory, ordering medications,tests, procedures, referring, communicating with other health neonatal intensive care unit nurse, indepentently interpreting results and counseling the patient
[2023-06-24] MEDS: Dextrose 50%-Water 25 GM/50 ML SYR ×2 (17:47→18:03)
--- NOTE | 2023-06-24 18:08 | W.EVENT ---
Date of service: 06/24/23 Time of Service: 18:08 Event Note: 68 yo M with HFpEF, COPD, cocaine use, liver dysfuncion without known cirrhosis who was admitted with severe epistaxis. I went by to check on him because he was feeling exhausted this morning and refused labs. He was sleeping most of the day. I wanted to convince him to have his labs to check his liver, and I found him splayed out face down with upper extremities and face looking purplish and somnolent. He was breathing regularly and had pulse, but he would not answer to shaking or questions. I asked RN to get a set of vitals, got blood sugar. FS on right finger read 12. At that point when was tried to sit him up he stated I'm up but could not continue a conversation. Initial vital signs on left arm BP 110s systolic, O2 sat on ear 91% RA. We called Rapid Response and gave 1 ampule D50, and his mental status improved and he was talking more. His voice was baseline and was moving four extremities. During rapid response we couldn't get a pulse or BP on right arm, but we could on the left. He was given a second amp of D50 and labs drawn, D10 at 150/hr ordered, transferred to ICU. Case discussed and signed out to Dr. George. This is an odd case of hypoglycemia (though level of 12 may be spurious related to poor circulation on right upper extremity) without a known history of diabetes or insulin use. This is likely related to his hepatic dysfunction in setting of stress of prolonged nasal packing with possible sinus infection. CBC, CMP, INR/PTT, Mg, Trop, and ammonia levels drawn. This is not c/w acute stroke, respiratory, or cardiac event. We did decide to start stress dose steroids as a precaution at this point as well. Time Spent with Patient Time spent in critical care(minutes): 55 Time Spent Included: Coordination of care, Chart review, Documenting critically ill care, Time at immediate bedside and Discussing critically ill care with other medical staff
[2023-06-24] MEDS: DEXTROSE 10%-WATER 500 ML 150 ML IV (18:14)
[2023-06-24 18:16] LABS: HCT 32.4 % (40.0-50.0); HGB 9.2 g/dL (13.5-17.5); MCHC 28.4 % (32.0-36.0); MCV 85 fL (80-95); MPV 10.8 fL (8.0-11.0); RBC 3.83 10^6/uL (4.36-5.78); RDW-SD 64.4 fL; WBC 18.52 10^3/uL (4.4-10.8)
[2023-06-24 18:29] LABS: Ammonia 71 umol/L (11-32)
[2023-06-24] MEDS: Hydrocortisone SOD SUC. 100 MG VIAL IVP (18:33)
[2023-06-24 18:46] LABS: Bands % 5
[2023-06-24 18:47] LABS: Absolute Lymphocyte Count 0.56 10^3/uL (1.2-3.4); Absolute Monocyte Count 1.67 10^3/uL (0.1-0.8); Anisocytosis 2+; Diff Comment Manual Differential; Hypochromasia 1+; Myelocytes % 1; Poikilocytes 2+
[2023-06-24 18:48] LABS: Absolute Neutrophil Count 16.11 10^3/uL (1.2-6.7); Platelet Count 154 10^3/uL (130-400)
[2023-06-24 18:53] LABS: BE (Venous) -18 mmol/L (-2-3); HCO3 (Venous) 12 mmol/L (23-28); O2 Sat (Venous) 74 %; TCO2 (Venous) 12 mmol/L (24-29); pCO2 (Venous) 39 mmHg (41-51); pO2 (Venous) 53 mmHg
[2023-06-24 18:56] LABS: pH (Venous) 7.09 (7.31-7.41)
[2023-06-24 19:05] LABS: Lactate 11.7 mmol/L (0.6-1.4)
[2023-06-24 19:11] LABS: Albumin 2.5 g/dL (3.4-5.0); Alkaline Phosphatase 112 U/L (46-116); Anion Gap 21.2 mmol/L (3-11); Bilirubin, Total 1.5 mg/dL (0.2-1.0); CO2 10.8 mmol/L (21.0-32.0); CREATININE 2.3 mg/dL (0.70-1.30); Calcium 8.4 mg/dL (8.5-10.1); Chloride 93 mmol/L (98-107); Estimated GFR 30.17 (mL/min/1.73m2); Glucose 98 mg/dL (74-106); Sodium 125 mmol/L (136-145); Total Protein 6.2 g/dL (6.4-8.2); Troponin I < 50 ng/L (< or =60)
--- NOTE | 2023-06-24 19:15 | RT.EKG_ITS ---
APPROVED REPORT Exam: Resting ECG Reason for Exam: critically elevated potassium Patient Location: I HR:71 bpm ECG Measurements Heart Rate 71 AXIS OR [id number] P [id number] QRSd 134 QRS -19 QT 446 T 64 QTc 485 Conclusion Atrial fibrillation...? atrial activity Nonspecific intraventricular conduction delay...QRSd >115mS, not LBBB/RBBB
[2023-06-24 19:19] LABS: Potassium 7.8 mmol/L (3.5-5.1)
[2023-06-24 19:21] LABS: BUN 40 mg/dL (7-18)
[2023-06-24] MEDS: Insulin REGULAR-Human 100 UNITS/ML UNIT 10 UNITS SC (19:27)
[2023-06-24] MEDS: Calcium Gluconate 4.65 MEQ/10 ML VIAL 4.65 MG IVP (19:30)
[2023-06-24] MEDS: Dextrose 50%-Water 25 GM/50 ML SYR IVP (19:30)
[2023-06-24] MEDS: Lactated Ringers 1,000 ML 150 ML IV (19:50)
[2023-06-24 20:27] LABS: ALT 2192 U/L (16-63); AST 7414 U/L (15-37)
--- NOTE | 2023-06-24 22:00 | DI.RAD_ITS ---
Exam(s) XR PORTABLE CHEST AP POST LINE EXAM: XR PORTABLE CHEST AP POST LINE CLINICAL HISTORY: Right IJ placement TECHNIQUE: 2D digital imaging was performed of the chest. One image was obtained. An AP view was ob tained. COMPARISON: CR XR PORTABLE CHEST AP from 11/25/2021 CR XR PORTABLE CHEST AP from 06/21/2023 CR,XR XR PORTABLE CHEST AP POST LINE from 06/25/2023 FINDINGS: MEDIASTINUM: Normal. HEART: Cardiomegaly. PULMONARY VASCULATURE: Normal. LUNGS: There has been interval development of a right lung infiltrate. The left lung is clear. PLEURAL SPACE: No pleural effusion or pneumothorax. BONE:Within normal limits for the patient's age. There again seen findings of a left total reverse sh oulder replacement. OTHER FINDINGS:There has been interval placement of a right IJ catheter. The tip of the catheter is seen at the cavoatrial junction. IMPRESSION: 1. Interval placement of a right IJ catheter with the tip at the junction of the superior vena cava a nd right atrium. 2. Interval development of a right lung infiltrate. This may represent pneumonia or atelectasis. Pl ease correlate clinically. DATA REPOSITORY: RADIATION DOSE DELIVERED:
--- NOTE | 2023-06-24 22:30 | W.EVENT ---
Date of service: 06/24/23 Time of Service: 22:31 Event Note: This is a 68-year-old male patient who was admitted 06/19/2023 for persistent left posterior nosebleed with fracture that compression and started. He had problems with continued bleeding the third day of admission after coughing and recompression help with this with no further bleeding. He had maintained the nasal compression up to today when he began to have more confusion with decreased intake refused labs. He was found very lethargic and rapid response resulted in ICU admission for acute metabolic acidosis with JOS and possible toxic shock syndrome with the prolonged compression of the nasal passage. He was on cefepime and this was continued with expansion of vancomycin and cefepime. He was attempted to have labs done and only partial improvement obtained because of patient refusal to be phlebotomized. He did have 1 IV with IV fluids given for hypoglycemia which is his initial presentation when he was not arousable in his room. His glucose was measured as 12 and this did respond to D50 boluses x 3. He was started on a D50 W infusion and this was stopped after his blood sugars responded and were maintained over 100. He was still confused and found to have an elevated ammonia level with progressively increasing liver function test while hospitalized otherwise normal upon presentation other than an elevated PT/INR. Patient has limited IV access but did obtain some labs resulting and metabolic acidosis which was very severe but VBG showed a pH of 7.09 and a normal pCO2 but bicarb in the range of 12. Potassium is also elevated above 7 and was treated with calcium gluconate and insulin infusion as well as now starting lactated Ringer's infusion with D50 discontinued with hypoglycemia resolved. IV access was a problem and a right IJ central line was placed by surgery. There was some bleeding with the patient's lab eventually drawn showing that his PT/INR was even higher with increased liver function test as well as worsening VBG with pH of 6.92 and pCO2 elevated now at 72 but slight improvement of bicarb at 15. Patient was agitated and did calm with 1 mg of Ativan IV and was placed on BiPAP which he was tolerating well with vital signs stabilized. Since he had not received much treatment since his first lab it was thought best to attempt BiPAP treatment with close one-on-one observation and patient reviewed lab to see if he could recover without being intubated. Patient was indicated he did not want intubation or CPR when he was transferred to the ICU but with his acute hepatic cephalopathy and delirium with metabolic acidosis, it was thought that he was unable to make clear decisions. There is no family to consult. If he is not improving with BiPAP and IV fluid resuscitation intubation may be indicated. Did have lab evaluation showing improvement of his potassium down to 6.7 from 7.8 and did improve also with IV hydration with JOS having an elevation of his creatinine from 1.4 to 2.8. Lab obtained after the IJ was placed did reveal also elevation of the AST from just under 300 to [id number] with the ALT elevation from 67 to 2192. PT/INR also was now elevated at 25.3/2.7. WBC was elevated over 18,000 earlier in the evening when his antibiotic coverage was expanded to vancomycin with cefepime for possible toxic shock syndrome. Patient's hemoglobin was stable with his nosebleed. Vital signs were stabilized after sedation with BiPAP placement the patient never being hypotensive and extra became bradycardic with vasovagal a needing to urinate during his IJ placement as well as struggling. He did have to be placed in soft restraints because of driving and pulling at his central line. After IV Ativan was given the patient was sedated and tolerating BiPAP with his head elevated and guarding his airway well. Lungs always remain clear with inspiration but he was tugging until placed on BiPAP. His abdomen was soft and did not appear to have a fluid wave. Extremities were slightly mottled and cyanotic as well as cold earlier during the evening which was improving with treatment. Pulse oximeter was well above 90% with O2 supplementation and on 30% FiO2 with BiPAP his hypoxemia was not escalating. He did have increased hypercapnia and this should be recovery with BiPAP. If he is not improved with BiPAP he was a candidate for intubation. Patient does remain a full code. I spent a total of 70 minutes at the patient bedside coordinating care with the surgeon and reevaluation of clinical status with nurses as well as interpreting lab and adjusting treatment with the patient having critical illness which could have resulted in if not attended acutely with reassessment and care adjustment. Time Spent with Patient Time spent in critical care(minutes): 70 Time Spent Included: Coordination of care, Chart review, Documenting critically ill care, Time at immediate bedside and Discussing critically ill care with other medical staff
[2023-06-24] MEDS: LORazepam 2 MG/ML VIAL (22:40)
[2023-06-24 22:45] LABS: BE (Venous) -18 mmol/L (-2-3); HCO3 (Venous) 15 mmol/L (23-28); O2 Sat (Venous) 34 %; TCO2 (Venous) 16 mmol/L (24-29); pO2 (Venous) 34 mmHg
[2023-06-24 22:47] LABS: pCO2 (Venous) 72 mmHg (41-51); pH (Venous) 6.92 (7.31-7.41)
--- NOTE | 2023-06-24 22:53 | ROE_ITS ---
Date of service: 06/24/23 Time of Service: 22:00 Operative Note Operative Note DATE OF PROCEDURE: 06/24/23 PRE-OP DIAGNOSIS: (1) Poor peripheral venous access (2) Central venous access for monitoring, medicines, and blood draws POST-OP DIAGNOSIS: same Satisfactory placement of right IJ central venous triple lumen catheter PROCEDURE: (1) Right IJ central venous catheter insertion (2) Ultrasound venous access SURGEON: Ruben Apodaca ANESTHESIA TYPE: Local By Surgeon Refer to Anesthesia Record ESTIMATED BLOOD LOSS: 15 PATHOLOGY: none sent COMPLICATIONS: None Implants: Triple lumen central venous catheter Indications: (1) Poor peripheral venous access (2) Central venous access for monitoring, medications, and blood draws Findings: External jugular venous distention; possible fluid overload, possible pulmonary hypertension. Otherwise, normal surface anatomical landmarks. Venous ultrasound demonstrated widely patent and compressible right IJ and EJ veins without intraluminal thrombus. Procedure Description: The patient was placed supine in his bed in the intensive care unit. A sterile prep and drape were carried out in usual fashion of the right neck and upper chest. Venous ultrasound was used to confirm a widely patent and compressible right internal jugular vein. There was no evidence of intraluminal thrombus. Lidocaine 1% plain was used anesthetize the skin over the right anterior ternocleidomastoid triangle and an 18-gauge Cook needle on a syringe was used with [id number] technique and directed by ultrasound guidance into the right internal jugular vein. There was a brisk venous back flash. A guidewire was passed through the needle and into the patient without resistance. The needle and syringe were removed. Next a #11 blade scalpel was used to make a skin neck at the guidewire exit site. A vein dilator was passed over the wire and into the patient without resistance and removed. A flushed triple-lumen central venous catheter was advanced over the wire and into the patient and the guidewire was removed. All port caps were applied and tightened. All ports aspirated venous blood and were flushed with saline. The retention hub was placed at the skin exit site at the 18 cm amira. This was sutured into place with two silk sutures. Sterile dressing and OpSite were applied. Lung sounds were equal bilaterally. Post-placement upright portable chest x-ray was obta ined and demonstrated no evidence of pneumothorax. However the final read by the radiologist is pending at this time. Once final read is obtained, will allow use of the catheter. Ruben Apodaca D.O.
[2023-06-24 22:58] LABS: Anion Gap 16.1 mmol/L (3-11); BUN 42 mg/dL (7-18); CO2 17.9 mmol/L (21.0-32.0); CREATININE 2.8 mg/dL (0.70-1.30); Calcium 8.8 mg/dL (8.5-10.1); Chloride 93 mmol/L (98-107); Estimated GFR 23.83 (mL/min/1.73m2); Glucose 187 mg/dL (74-106); Sodium 127 mmol/L (136-145)
[2023-06-24 23:00] LABS: Potassium 6.7 mmol/L (3.5-5.1)
[2023-06-24 23:02] LABS: INR 2.7 (0.9-1.1); PTT Activated 37.9 sec (23.6-32.8); Prothrombin Time 25.3 sec (9.1-11.1)
[2023-06-24] MEDS: Lidocaine 5% Patch 2 PATCH TP (23:05)
[2023-06-24] MEDS: VANCOMYCIN/WATER (PEG) 2 GM/400 ML BAG IV (23:16)
--- NOTE | 2023-06-24 23:22 | DI.VRAD_ITS ---
Addendum created by Danielle Desir MD on 06/24/2023 11:52:59 PM EDT: THIS REPORT CONTAINS FINDINGS THAT MAY BE CRITICAL TO PATIENT CARE. The findings were verbally communicated via telephone conference with ALLISON GAVIRIA at 11:52 PM EDT on 06/24/2023. The findings were acknowledged and understood. Initial report created on 06/24/2023 11:21:47 PM EDT: PROCEDURE INFORMATION: Exam: XR Chest Exam date and time: 06/24/2023 10:24 PM Age: 68 years old Clinical indication: Other vascular access device placement or adjustment; Other: Right ij placement TECHNIQUE: Imaging protocol: Radiologic exam of the chest. Views: 1 view. COMPARISON: CR XR PORTABLE CHEST AP 06/21/2023 4:58 PM FINDINGS: Limitations: Portions of the pulmonary parenchyma are obscured secondary to overlying medical equipment. Tubes, catheters and devices: There is a right-sided line with tip overlying the SVC. Just medial to the distal aspect of this line, a 1.4 cm linear density is identified for which a catheter fragment is not excluded. A repeat examination is recommended. Lungs: There is poor visualization of the right costophrenic angle suggestive of effusion. There is right lower lung opacification, worrisome for airspace disease such as pneumonia. There is volume loss to the right lung is well. A probable right-sided calcified granuloma is seen overlying the right lower lung, unchanged. Pleural spaces: No pneumothorax. Heart/Mediastinum: There is cardiomegaly and mediastinal widening, increased from prior examination. Differences in technique/rotation may be contributing however clinical correlation is recommended. If there is concern for acute mediastinal, vascular, or cardiac abnormality, CTA is recommended. Bones/joints: There are skeletal degenerative changes. A left reverse shoulder arthroplasty is seen. IMPRESSION: 1. Limitations as discussed above. 2.There is a right-sided line with tip overlying the SVC. Just medial to the distal aspect of this line, a 1.4 cm linear density is identified for which a catheter fragment or other abnormality is not excluded. A repeat examination is recommended. 3. There is poor visualization of the right costophrenic angle suggestive of effusion. There is right lower lung opacification, worrisome for airspace disease such as pneumonia. There is volume loss to the right lung is well. 4. There is cardiomegaly and mediastinal widening, increased from prior examination. Differences in technique/rotation may be contributing however clinical correlation is recommended. If there is concern for acute mediastinal, vascular, or cardiac abnormality, CTA is recommended. Other findings/details as above. Dictated and Authenticated by: Danielle Desir MD. Ordering:MARA Arthur MD
[2023-06-24 23:59] LABS: Folate > 20.0 ng/mL (8.6-20.0); Vitamin B12 > 2000 pg/mL (193-986)
[2023-06-25] VITALS (86 sets, daily range): BP systolic 31–155; BP diastolic 18–109; PULSE 52–119; RESP 12–25; TEMP 35.5–37.4; O2SAT 27–98
--- NOTE | 2023-06-25 | DI.US_ITS ---
Exam(s) US ABDOMEN EXAM: US ABDOMEN CLINICAL HISTORY: progressive AST elevation, elevated INR, conj bili TECHNIQUE: Ultrasound abdomen performed using standard protocol. COMPARISON: CT CT ABDOMEN PELVIS W from 07/04/[address] CHEST PE CTA from 02/10/2021 FINDINGS: ABDOMINAL AORTA AND IVC: Visualized portions normal caliber. PANCREAS: Normal where visualized. LIVER: There is a lobulated contour of the liver which can be seen with hepatic cirrhosis. The liver measures 19 cm long. Hepatopetal flow in the Portal Vein. GALLBLADDER:Multiple gallstones are present. No evidence of wall thickening. No pericholecystic flui d identified. BILIARY SYSTEM: Common bile duct measures < 7 mm. No intrahepatic biliary ductal dilation. GALICIA'S SIGN: Negative. KIDNEYS: Kidneys are symmetric in size. No evidence of renal calculi. No evidence of hydronephrosis. No renal mass or cyst identified. SPLEEN: Not enlarged. ASCITES: There is a small to moderate amount of ascites around the liver and gallbladder. IMPRESSION: 1. There is hepatomegaly. There is mildly nodular contour of the liver which can be seen with hepati c cirrhosis. Please correlate clinically. 2. Cholelithiasis. 3. Small to moderate amount of ascites around the liver and gallbladder. DATA REPOSITORY:
[2023-06-25] MEDS: Lactated Ringers 500 ML IV (00:05)
[2023-06-25] MEDS: Rocuronium 50 MG/5 ML SYR 100 MG IVP (00:17)
[2023-06-25] MEDS: Etomidate 20 MG/10 ML VIAL IVP (00:17)
[2023-06-25] MEDS: PROPOFOL 1,000 MG/100 ML BTL 20 MG (00:20)
[2023-06-25] MEDS: PROPOFOL 1,000 MG/100 ML BTL 9.336 MG IV ×2 (00:20→09:35)
[2023-06-25] MEDS: Norepinephrine in D5W 8 MG/250 ML BAG 9.375 MG IV (00:25)
[2023-06-25] MEDS: Lactated Ringers 1,000 ML 1000 ML IV ×2 (00:32→00:59)
--- NOTE | 2023-06-25 01:11 | DI.VRAD_ITS ---
PROCEDURE INFORMATION: Exam: XR Chest Exam date and time: 06/25/2023 12:25 AM Age: 68 years old Clinical indication: Device placement; Patient HX: Post intubation, question ij position TECHNIQUE: Imaging protocol: Radiologic exam of the chest. Views: 1 view. COMPARISON: XR PORTABLE CHEST AP POST LINE 06/24/2023 10:24 PM FINDINGS: Tubes, catheters and devices: The endotracheal tube lies in good position within the mid trachea. There is a right internal jugular central venous catheter present at the cavoatrial junction in good position. Lungs: Patchy consolidative changes right lower lobe of the lung consistent with pneumonia. Atelectatic changes left lower lobe of the lung may represent developing inflammatory or infectious process. Granuloma present within the right lower lobe of the lung. Pleural spaces: Probable right pleural effusion no definite left pleural effusion. No evidence of pneumothorax. Heart/Mediastinum: There is moderate to severe cardiomegaly. The mediastinum is prominent. Bones/joints: There is a reverse total left shoulder replacement. Soft tissues: The soft tissues of the extrathoracic region are unremarkable. IMPRESSION: 1. There is moderate to severe cardiomegaly. 2. Patchy consolidative changes right lower lobe of the lung consistent with pneumonia. Atelectatic changes left lower lobe of the lung may represent developing inflammatory or infectious process. 3. Endotracheal tube and right internal jugular central venous catheter in good position. Dictated and Authenticated by: Prabhjot Ruiz MD. Ordering:MARA Arthur MD
[2023-06-25 01:53] LABS: Anion Gap 20.4 mmol/L (3-11); BUN 40 mg/dL (7-18); CO2 11.6 mmol/L (21.0-32.0); CREATININE 2.5 mg/dL (0.70-1.30); Calcium 7.8 mg/dL (8.5-10.1); Chloride 93 mmol/L (98-107); Glucose 124 mg/dL (74-106); Sodium 125 mmol/L (136-145)
[2023-06-25 02:00] LABS: BE -20 mmol/L (-2-3); HCO3 10 mmol/L (22-26); pCO2 31 mmHg (35-45); pO2 244 mmHg (80-105)
--- NOTE | 2023-06-25 02:00 | W.EVENT ---
Date of service: 06/25/23 Time of Service: 02:00 Event Note: This is a 68-year-old gentleman who was on BiPAP but began to have a drop in blood pressure with systolic below 60 prompting IV fluid resuscitation with lactated Ringer's and then progressed to the need for acute intubation with dropping pulse oximeter and not responding to fluid resuscitation with systolic blood pressure still above rapid response was called and Dr. Cherry did respond from the ED and had successful intubation with the patient with sedation with his blood pressure responding to initiation of norepinephrine infusion with continued fluid resuscitation 3 L of. His blood pressure did respond but his pulse oximeter continue to show readings below 60% with adequate pleth wave pattern but this was suspicious. Arterial blood gas was obtained with difficulty after eventual placement of arterial line did reveal improved pH to above 7 and normalized pCO2 as well as PaO2 over 200 on 100% FiO2 and adjustment of ventilation settings. The patient appeared comfortable and had a Goldman catheter in place draining clear urine. He will continue on intubation with chest x-ray showing adequate placement of the central line and ET tube. He does appear to have a right pneumonia which may have been from aspiration when he was encephalopathic and delirious during the day. He is on adequate antibiotic coverage with vancomycin and cefepime and because of his continued metabolic acidosis he will be placed on a sodium bicarb infusion. Blood gases will be trended and patient hypoglycemia has not returned. Will continue to follow his liver and renal functions which are both worsening during this episode. Prognosis is poor with patient appearing to respond to resuscitative measures and may diagnosis is still sepsis with shock and possible toxic shock syndrome with his prolonged bronchitic compression in the left nostril. He will remain on propofol for sedation with his norepinephrine infusion to be adjusted to blood pressure. Oxygenation will be monitored with every 2 hour arterial blood gases. He will continue IV hydration and adjustment of treatment of his hyperkalemia if this persists. Renal functions are elevated and there is no strong indication for CTA of the chest at this time though this was being entertained at one point. He is oxygenating well and PE is less likely with his elevated INR. Aortic dissection was considered but not high on the differential at this time with renal failure exacerbation with IV dye more risk than potential benefit. He remains a full code but this may be an ongoing discussion if he survives this acute decompensation. He was indicating wishes to be left alone just prior to decompensation. Physical exam after intubation revealed the patient having slightly cyanotic hands with right IJ central line in place and left femoral arterial line in place. He has decreased aeration on the right lung mckee but clear mechanical mechanical inspiratory lung sounds without crackles. He has no expiratory wheeze. Abdomen is soft though slightly febrile. He does have 2+ peripheral edema which appears chronic and slightly cyanotic toes. Overall he is warm to the touch of the skin. He is sedated and has soft restraints. Exam: XR Chest Exam date and time: 06/25/2023 12:25 AM Age: 68 years old Clinical indication: Device placement; Patient HX: Post intubation, question ij position TECHNIQUE: Imaging protocol: Radiologic exam of the chest. Views: 1 view. COMPARISON: XR PORTABLE CHEST AP POST LINE 06/24/2023 10:24 PM FINDINGS: Tubes, catheters and devices: The endotracheal tube lies in good position within the mid trachea. There is a right internal jugular central venous catheter present at the cavoatrial junction in good position. Lungs: Patchy consolidative changes right lower lobe of the lung consistent with pneumonia. Atelectatic changes left lower lobe of the lung may represent developing inflammatory or infectious process. Granuloma present within the right lower lobe of the lung. Pleural spaces: Probable right pleural effusion no definite left pleural effusion. No evidence of pneumothorax. Heart/Mediastinum: There is moderate to severe cardiomegaly. The mediastinum is prominent. Bones/joints: There is a reverse total left shoulder replacement. Soft tissues: The soft tissues of the extrathoracic region are unremarkable. IMPRESSION: 1. There is moderate to severe cardiomegaly. 2. Patchy consolidative changes right lower lobe of the lung consistent with pneumonia. Atelectatic changes left lower lobe of the lung may represent developing inflammatory or infectious process. 3. Endotracheal tube and right internal jugular central venous catheter in good position. Time Spent with Patient Time spent in critical care(minutes): 90 Time Spent Included: Coordination of care, Chart review, Documenting critically ill care, Time at immediate bedside, Discussing critically ill care with other medical staff and Other (Performing role of the security team lead during rapid response and treatment of severe hypotension and hypoxemia.)
[2023-06-25 02:01] LABS: FIO2L 100 L; Site Arterial Line; pH 7.12 (7.35-7.45)
--- NOTE | 2023-06-25 02:03 | W.ED.PROC ---
Date of service: 06/25/23 Time of Service: 02:03 Procedures Arterial Line Time Out Performed: Yes Size (Gauge): 18 Technique Used: guide wire technique Post-Procedure: line sutured into place and dry sterile dressing placed Patient Tolerated Procedure: well Complications: none Site: left and femoral Additional Comments: Initial attempt was made for left radial wrist, Arrow art line kit was able to be introduced into the artery, however secondary to the notably diminished size of the artery and significant plaques were unable to advance the wire. Second attempt was made more proximally near the AC joint, and the same issue persisted in this region. Decision was then made to place a left femoral arterial line, this was placed without complication. Intubation Time out performed: Yes sedative: Etomidate Mg Given: 20 paralytic: Rocuronium Mg Given: 100 Laryngoscope: other ([place] scope) ET Tube Size: 7.5 ET Tube Uncuffed: No Tube Secured Depth (cm): 23 Tube Secured Location: teeth Tube Placement Confirmation: visualized tube passing through cords, equal breath sounds bilaterally, no breath sounds over epigastrum and confirmation by capnometry Patient Tolerated Procedure: well and no complications Intubation Complications: none Medical Decision Making Rapid response code was called at around midnight, myself and to ER nurses came to bedside, patient was on BiPAP, relatively unresponsive, I offered my services, Dr. Delarosa was the leading medicine provider and requested that I intubate the patient. Patient was intubated without complication. Tube was visualized passing through cords, breath sounds equal, tube secured. Chest x-ray demonstrated good tube placement. Patient was hypotensive, bedside ultrasound was performed, no evidence of B-lines in the upper lung mckee, consolidation present in the lower lung mckee. No evidence of pneumothorax. Concern for peripheral etiology and septic shock. Due to the notable hypotension, art line was also requested. I did perform an initial attempt in the left wrist, however the vessel was notably small, with significant atherosclerotic plaques. I was able to introduce the arrow device into the vessel however due to its size and notable plaques were unable to advance the guidewire. Second attempt was performed more proximally, but the same problem persisted. Decision was made to place a left femoral, femoral placed without complication on initial attempt. Area secured. The remainder of the patient's medical care was continued by Dr. Delarosa. Quality:[facility] Health Related Social Needs: No Data to Display
[2023-06-25 02:08] LABS: Potassium 7.9 mmol/L (3.5-5.1)
[2023-06-25] MEDS: Lactated Ringers 1,000 ML 100 ML IV (02:29)
[2023-06-25] MEDS: Hydrocortisone SOD SUC. 100 MG VIAL IVP ×2 (03:00→10:40)
[2023-06-25] MEDS: SODIUM BICARBONATE 150 MEQ in DEXTROSE 5%-WATER 850 ML IV (03:04)
[2023-06-25] MEDS: Dextrose 50%-Water 25 GM/50 ML SYR IVP (03:13)
[2023-06-25] MEDS: Insulin REGULAR-Human 100 UNITS/ML UNIT 10 UNITS SC ×2 (03:22→08:20)
[2023-06-25 03:29] LABS: BE -20 mmol/L (-2-3); HCO3 10 mmol/L (22-26); pCO2 33 mmHg (35-45); pO2 197 mmHg (80-105)
[2023-06-25] MEDS: Normal Saline 100 ML (03:30)
[2023-06-25 03:31] LABS: FIO2 70 %; Site Arterial Line
[2023-06-25] MEDS: Calcium Gluconate 4.65 MEQ/10 ML VIAL 4.65 MG IVP (03:31)
[2023-06-25] MEDS: Lidocaine 5% Patch 1 PATCH TP (03:42)
[2023-06-25] MEDS: Normal Saline Flush 10 ML SYR IVP ×2 (04:49)
[2023-06-25] MEDS: CEFEPIME 1 GM in Normal Saline 50 ML IVPB (04:55)
[2023-06-25 05:27] LABS: BE -19 mmol/L (-2-3); HCO3 10 mmol/L (22-26); pCO2 27 mmHg (35-45); pO2 176 mmHg (80-105)
[2023-06-25 05:29] LABS: FIO2 55 %; Site Arterial Line; pH 7.17 (7.35-7.45)
[2023-06-25 05:45] LABS: Lactate 10.8 mmol/L (0.6-1.4)
[2023-06-25 05:47] LABS: HCT 30.9 % (40.0-50.0); HGB 8.8 g/dL (13.5-17.5); MCHC 28.5 % (32.0-36.0); MCV 84 fL (80-95); MPV 11.6 fL (8.0-11.0); Platelet Count 156 10^3/uL (130-400); RBC 3.66 10^6/uL (4.36-5.78); RDW-SD 63.1 fL; WBC 23.58 10^3/uL (4.4-10.8)
[2023-06-25 05:56] LABS: INR 3.3 (0.9-1.1); Prothrombin Time 29.8 sec (9.1-11.1)
[2023-06-25 05:59] LABS: Ammonia 103 umol/L (11-32)
[2023-06-25 06:02] LABS: RDW 20.7 % (11.8-14.1)
[2023-06-25 06:03] LABS: Albumin 2.2 g/dL (3.4-5.0); Alkaline Phosphatase 130 U/L (46-116); Bilirubin, Direct 1.4 mg/dL (0.0-0.2); Bilirubin, Total 2.1 mg/dL (0.2-1.0); Total Protein 5.5 g/dL (6.4-8.2)
[2023-06-25 06:15] LABS: ALT 2753 U/L (16-63); AST > 8000 U/L (15-37)
--- NOTE | 2023-06-25 07:00 | DI.RAD_ITS ---
Exam(s) XR PORTABLE CHEST AP EXAM: XR PORTABLE CHEST AP CLINICAL HISTORY: Right plural effusion, early consolidating process TECHNIQUE: 2D digital imaging was performed of the chest. One image was obtained. An AP view was ob tained. COMPARISON: CR XR PORTABLE CHEST AP from 06/21/2023 CR,XR XR PORTABLE CHEST AP POST LINE from 06/24/2023 CR,XR XR PORTABLE CHEST AP POST LINE from 06/25/2023 FINDINGS: MEDIASTINUM: Normal. HEART: Normal. PULMONARY VASCULATURE: Normal. LUNGS: There are persistent right basilar infiltrate. There may also be a small right pleural effusi on. Atelectatic changes are seen now in the left lung base. PLEURAL SPACE: No left pleural effusion. No pneumothorax. BONE:Within normal limits for the patient's age. OTHER FINDINGS:The tip of the right IJ catheter is seen in the superior vena cava. The tip of the en dotracheal tube is 6 5 cm above the sidra in good position. There has been interval placement of an enteric tube. The tip is seen in the stomach below the diaphragm in good position. IMPRESSION: 1. Interval placement of an enteric tube. The tip is seen below the hemidiaphragm in the stomach in good position. 2. Stable position of the right IJ catheter and endotracheal tube. 3. Stable right basilar infiltrate. Left basilar atelectasis. DATA REPOSITORY: RADIATION DOSE DELIVERED:
[2023-06-25 07:31] LABS: BE -16 mmol/L (-2-3); HCO3 13 mmol/L (22-26); pCO2 36 mmHg (35-45); pO2 164 mmHg (80-105)
[2023-06-25 07:33] LABS: FIO2 50 %; Site Arterial Line; sO2 > 99 % (95-98)
[2023-06-25 07:36] LABS: pH 7.16 (7.35-7.45)
[2023-06-25 07:45] LABS: Anion Gap 17.8 mmol/L (3-11); BUN 44 mg/dL (7-18); CO2 14.2 mmol/L (21.0-32.0); CREATININE 2.9 mg/dL (0.70-1.30); Calcium 7.5 mg/dL (8.5-10.1); Chloride 92 mmol/L (98-107); Estimated GFR 22.85 (mL/min/1.73m2); Glucose 182 mg/dL (74-106)
[2023-06-25 07:47] LABS: Potassium 7.9 mmol/L (3.5-5.1); Sodium 124 mmol/L (136-145)
--- NOTE | 2023-06-25 07:52 | DI.VRAD_ITS ---
PROCEDURE INFORMATION: Exam: XR Chest Exam date and time: 06/25/2023 12:31 AM Age: 68 years old Clinical indication: Other: Pleural effion TECHNIQUE: Imaging protocol: Radiologic exam of the chest. Views: 1 view. COMPARISON: CR XR PORTABLE CHEST AP POST LINE 06/25/2023 12:25 AM FINDINGS: Tubes, catheters and devices: There has been interval and placement of an enteric tube which courses below the left hemidiaphragm with its tip projecting over the body of the stomach. A right internal jugular central venous catheter remains in place, its tip projecting over the central superior vena cava. An endotracheal tube is again identified, its tip projecting approximately 6.6 cm above the sidra. Lungs: Persistent patchy airspace opacities throughout the right mid and lower lung, not significantly changed. No overt pulmonary edema or significant vascular congestion. Pleural spaces: Persistent small right pleural effusion. No pneumothorax. Heart/Mediastinum: Stable mild enlargement of the cardiac silhouette. Bones/joints: Degenerative changes. Reverse left total shoulder arthroplasty. IMPRESSION: Interval placement of an enteric tube, its tip projecting over the body of the stomach. Otherwise no significant interval change. Dictated and Authenticated by: Mckayla Cr MD. Ordering:VALERY Miranda MD
--- NOTE | 2023-06-25 08:00 | RT.EKG_ITS ---
APPROVED REPORT Exam: Resting ECG Reason for Exam: hyperkalemia Patient Location: I HR:95 bpm ECG Measurements Heart Rate 95 AXIS [place] [id number] P [id number] QRSd 131 QRS -1 QT 436 T 90 QTc 548 Conclusion Atrial fibrillation...? atrial activity Nonspecific intraventricular conduction delay...QRSd >115mS, not LBBB/RBBB
[2023-06-25] MEDS: Furosemide 100 MG/10 ML VIAL (08:08)
[2023-06-25] MEDS: Furosemide 100 MG/10 ML VIAL 80 MG IVP (08:13)
[2023-06-25] MEDS: Sodium Bicarbonate 50 MEQ/50 ML SYR IVP (08:19)
[2023-06-25] MEDS: Dextrose 50%-Water 25 GM/50 ML SYR (08:22)
[2023-06-25 08:25] LABS: Vancomycin, Random 29.8 ug/mL
--- NOTE | 2023-06-25 08:44 | W.PULMCC ---
General Date of Service Date of service: 06/25/23 Time of Service: 08:44 Reason for Admission to ICU: Multi organ failure Assessment and Plan Assessment and plan (1) Shock circulatory: Status: Acute (2) Acute liver failure: Status: Acute (3) Acute renal failure: Status: Acute (4) Hyperkalemia: Status: Acute (5) HFrEF (heart failure with reduced ejection fraction): Status: Acute (6) COPD (chronic obstructive pulmonary disease): Status: Chronic (7) Acute posterior epistaxis: Status: Acute (8) Hyponatremia: Status: Resolved (9) Encephalopathy: Status: Acute (10) Hypocalcemia: Status: Acute (11) Hyperphosphatemia: Status: Acute (12) Anemia due to blood loss: Status: Acute (13) Leukocytosis: Status: Acute (14) Coagulopathy: Status: Acute (15) Lactic acidosis: Status: Acute (16) High anion gap metabolic acidosis: Status: Acute (17) Normal anion gap metabolic acidosis: Status: Acute (18) Hepatitis C: Status: Chronic Assessment and plan: This is a 68 yo admitted to the ICU for multi-organ failure. The circumstances of this detrimental decompensation are not particularly clear to me, however it does appear as though he was stable during his hospital stay until 06/23 when he experienced obtundation, hypotension and renal failure resulting in his intubation, pressor support and transfer to the ICU. This morning I find his in renal and liver failure, with decompensated heart failure and obtundation. He was initially admitted for a nosebleed and had a rhinorocket in place for 5 days prior to the decompensation so toxic shock syndrome/septic shock is a possibility. He was already on cefepime and vanc upon my arrival, but I have added clindamycin to this as well. He had essentially no UOP this morning and upon discussion with [facility] consideration for dobutamine was given, which I agree is an appropriate medication to trial so this will be started. I recommend against any further IVF's and stopped the bicarb drip. I did give a push of bicarb given the renal failure. Ideally I would like a lundy CT with contrast, however with his potassium, I feel he is too tenuous for this to happen now. Recommendations Pulmonary: Mechanical Ventilation due to airway protection - low tidal volume ventilation - wean FiO2 as needed h/o COPD - no exacerbation currently Cardiac: Likely septic shock - levophed as needed MAP>65mmHg - dobumatine added given possibly septic cardiomyopathy and low UOP - repeat blood cultures - euthermia HFrEF - worsened EF by POCUS (prior 40%, currently 25%) - dobutamine to titrate to UOP or 20cc/hr - troponin Renal: Acute renal failure - s/p Lasix with limited response - dobutamine titrating to UOP - strict I/O's - Goldman Refractory Hyperkalemia - s/p Lasix, insulin/D50, Lokelma - need for emergent dialysis - accepted to [facility] ICU Hyponatremia - continue to monitor Hyperphosphatemia - dialysis as above Hypocalcemia - monitor - s/p calcium Refractory Lactic acidosis - emergent dialysis Mixed AGMA and NAGMA - s/p bicab with improvement - due to lactat3 and renal failure I&O: Intake & Output 06/22/23 06/23/23 06/24/23 06/25/23 23:59 23:59 23:59 23:59 Intake Total 1150 / 1150 1624 / 1624 635.833 / 326.119 9522.499 / 2877.499 Output Total 250 / 250 350 / 350 Balance 1150 / 1150 1374 / 1374 635.833 / 816.845 0280.499 / 2527.499 Weight 77.8 kg Daily Fluid Goal:: even GI Nutrition: Acute liver failure - recommend retesting for acute hepatitis panel in addition to HIV - abdominal ultrasound completed this morning - pending results - MAP support - DIC labs - MELD score 35 Coagulopathy - INR, dimer elevated - fibrinogen 06/23 was normal at 243, has been repeated today Date of Last Bowel Movement: 06/19/23 Infectious Disease: Septic Shock - possible toxic shock syndrome from prolonged rhinorocket - vanc, cefepime and clinda - repeat blood cultures pending h/o hep C - repeat testing, unclear if previously treated Hematologic: Anemia - monitor Neurologic: Hepatic encephalopathy - ammonia was 103 - lactulose started Endocrine: No acute issues Lines: R IJ CVC L fem art line Goldman ETT PIV Prophylaxis: hepain SC Protonix Code Status: Resuscitation Status Full Code Subjective Critical and life-threatening events over the past 24 hours: This is a 68 yo who presented on 4/16 for posterior epistaxis in the setting of HFrEF (Ef 40%), A. fib (no AC), COPD and hepatitis C. He required a rhinorocket until he was planned for procedure 06/25/23. The rhinorocket remained in place 06/18-06/23. We did have an elevated INR on admission but remained grossly stable during his stay until 06/23. He unfortunately refused daily lab draws until 06/23 during a rapid response when he was found to have renal and liver failure with a potassium of 7.8. He was given calcium, insulin and dextrose. He was also started on LR and a bicarb infusion and transferred to the ICU. Despite this his K remain elevated up to 7.9. He was acidotic and obtunded, thus was intubated and required vasopressor support. This morning on my assessment he is sedated on propofol 10, on Levophed 7.5, not breathing over the vent with no response to verbal or tactile stimuli. His POCUS found a reduced EF of ~ 25%, signs of pressure overload with a large RV/RA and enlarged, plethoric IVC. There was no significant free fluid in the abdomen. Bladder was decompressed with Goldman present. Exam Narrative Exam Narrative: Gen: sedated and intubated HENT: pupils sluggish Chest: Clear to auscultation bilaterally, no wheezing or crackles Heart: regular rate and rhythym, no murmurs, rubs or gallops Abdomen: Non-distended, soft, non tender Extremities: Bilateral lower extremity edema Neuro: sedated and intubated Psych: sedated and intubated Most Recent VS/Results Last Vital Signs Temp 36.2 C L 06/25/23 07:45 Pulse 81 06/25/23 03:31 Resp 14 06/25/23 08:30 BP 106/61 06/25/23 08:09 Pulse Ox 59 L 06/25/23 01:37 Laboratory Results - last 24 hr 06/24/23 06/24/23 06/24/23 05:35 08:30 18:05 WBC Cancelled 18.52 H RBC Cancelled 3.83 L Hgb Cancelled 9.2 L Hct Cancelled 32.4 L MCV Cancelled 85 D MCH Cancelled 24.0 L MCHC Cancelled 28.4 L RDW Cancelled 21.0 H Plt Count Cancelled 154 MPV Cancelled 10.8 Immature Gran % Cancelled See Differential Neutrophils % Cancelled 82.0 Band Neutrophils % Cancelled 5 Lymphocytes % Cancelled 3.0 Atypical Lymphs % Cancelled Monocytes % Cancelled 9.0 Eosinophils % Cancelled 0.0 Basophils % Cancelled 0.0 Metamyelocytes % Cancelled Myelocytes % Cancelled 1 Promyelocytes % Cancelled Other Cells % Cancelled Nucleated RBC % Cancelled 2.0 H Absolute Neutrophils Cancelled 16.11 H Absolute Lymphocytes Cancelled 0.56 L Absolute Monocytes Cancelled 1.67 H Absolute Eosinophils Cancelled 0.00 Absolute Basophils Cancelled 0.00 RBC Morphology Cancelled See Below Polychromasia Cancelled Hypochromasia Cancelled 1+ Poikilocytosis Cancelled 2+ Basophilic Stippling Cancelled Anisocytosis Cancelled 2+ Microcytosis Cancelled Macrocytosis Cancelled Spherocytes Cancelled Tear Drop Cells Cancelled Ovalocytes Cancelled Stomatocytes Cancelled Torres-Inkom Bodies Cancelled Akbar Cells/Echinocytes Cancelled Acanthocytes (Spur) Cancelled Schistocytes Cancelled PT INR APTT ABG Sample Site ABG pH ABG pCO2 ABG pO2 ABG HCO3 ABG Total CO2 ABG O2 Saturation ABG Base Excess VBG pH 7.09 L* VBG pCO2 39 L VBG pO2 53 VBG HCO3 12 L VBG Total CO2 12 L VBG O2 Saturation 74 VBG Base Excess -18 L VBG Lactate 11.7 H* Oxygen Liter Flow FiO2 Sodium Cancelled 125 L Potassium Cancelled 7.8 H* Chloride Cancelled 93 L Carbon Dioxide Cancelled 10.8 L Anion Gap Cancelled 21.2 H BUN Cancelled 40 H Creatinine Cancelled 2.3 H Est GFR (CKD-EPI 2020) Cancelled 30.17 Glucose Cancelled 98 Calcium Cancelled 8.4 L Magnesium 2.0 Iron Cancelled TIBC Cancelled Transferrin % Sat Cancelled Total Bilirubin Cancelled 1.5 H Conjugated Bilirubin AST Cancelled 7414 H ALT Cancelled 2192 H Alkaline Phosphatase Cancelled 112 Ammonia 71 H Troponin I < 50 Total Protein Cancelled 6.2 L Albumin Cancelled 2.5 L Vitamin B12 Folate Random Vancomycin Hepatitis A IgM Ab Cancelled Hep Bs Antigen Cancelled Hep B Core Total Ab Cancelled Hepatitis C Antibody Cancelled 06/24/23 06/24/23 06/25/23 22:34 22:37 01:25 WBC RBC Hgb Hct MCV MCH MCHC RDW Plt Count MPV Immature Gran % Neutrophils % Band Neutrophils % Lymphocytes % Atypical Lymphs % Monocytes % Eosinophils % Basophils % Metamyelocytes % Myelocytes % Promyelocytes % Other Cells % Nucleated RBC % Absolute Neutrophils Absolute Lymphocytes Absolute Monocytes Absolute Eosinophils Absolute Basophils RBC Morphology Polychromasia Hypochromasia Poikilocytosis Basophilic Stippling Anisocytosis Microcytosis Macrocytosis Spherocytes Tear Drop Cells Ovalocytes Stomatocytes Torres-[place] Bodies [place] Cells/Echinocytes Acanthocytes (Spur) Schistocytes PT 25.3 H INR 2.7 H APTT 37.9 H ABG Sample Site Cancelled ABG pH ABG pCO2 ABG pO2 ABG HCO3 ABG Total CO2 ABG O2 Saturation ABG Base Excess VBG pH 6.92 L* VBG pCO2 72 H* VBG pO2 34 VBG HCO3 15 L VBG Total CO2 16 L VBG O2 Saturation 34 VBG Base Excess -18 L VBG Lactate Oxygen Liter Flow FiO2 Sodium 127 L Potassium 6.7 H* Chloride 93 L Carbon Dioxide 17.9 L Anion Gap 16.1 H BUN 42 H Creatinine 2.8 H Est GFR (CKD-EPI 2020) 23.83 Glucose 187 H Calcium 8.8 Magnesium Iron TIBC Transferrin % Sat Total Bilirubin Conjugated Bilirubin AST ALT Alkaline Phosphatase Ammonia Troponin I Total Protein Albumin Vitamin B12 > 2000 H Folate > 20.0 H Random Vancomycin Hepatitis A IgM Ab Hep Bs Antigen Hep B Core Total Ab Hepatitis C Antibody 06/25/23 06/25/23 06/25/23 01:25 01:25 01:25 WBC RBC Hgb Hct MCV MCH MCHC RDW Plt Count MPV Immature Gran % Neutrophils % Band Neutrophils % Lymphocytes % Atypical Lymphs % Monocytes % Eosinophils % Basophils % Metamyelocytes % Myelocytes % Promyelocytes % Other Cells % Nucleated RBC % Absolute Neutrophils Absolute Lymphocytes Absolute Monocytes Absolute Eosinophils Absolute Basophils RBC Morphology Polychromasia Hypochromasia Poikilocytosis Basophilic Stippling Anisocytosis Microcytosis Macrocytosis Spherocytes Tear Drop Cells Ovalocytes Stomatocytes [place] Bodies [place] Cells/Echinocytes Acanthocytes (Spur) Schistocytes PT INR APTT ABG Sample Site Arterial Line ABG pH Cancelled 7.12 L* ABG pCO2 Cancelled 31 L ABG pO2 Cancelled ABG HCO3 ABG Total CO2 ABG O2 Saturation ABG Base Excess VBG pH VBG pCO2 VBG pO2 VBG HCO3 VBG Total CO2 VBG O2 Saturation VBG Base Excess VBG Lactate Oxygen Liter Flow FiO2 Sodium Potassium Chloride Carbon Dioxide Anion Gap BUN Creatinine Est GFR (CKD-EPI 2020) Glucose Calcium Magnesium Iron TIBC Transferrin % Sat Total Bilirubin Conjugated Bilirubin AST ALT Alkaline Phosphatase Ammonia Troponin I Total Protein Albumin Vitamin B12 Folate Random Vancomycin Hepatitis A IgM Ab Hep Bs Antigen Hep B Core Total Ab Hepatitis C Antibody 06/25/23 06/25/23 06/25/23 01:25 01:25 01:25 WBC RBC Hgb Hct MCV MCH MCHC RDW Plt Count MPV Immature Gran % Neutrophils % Band Neutrophils % Lymphocytes % Atypical Lymphs % Monocytes % Eosinophils % Basophils % Metamyelocytes % Myelocytes % Promyelocytes % Other Cells % Nucleated RBC % Absolute Neutrophils Absolute Lymphocytes Absolute Monocytes Absolute Eosinophils Absolute Basophils RBC Morphology Polychromasia Hypochromasia Poikilocytosis Basophilic Stippling Anisocytosis Microcytosis Macrocytosis Spherocytes Tear Drop Cells Ovalocytes Stomatocytes Torres[place] Bodies [place] Cells/Echinocytes Acanthocytes (Spur) Schistocytes PT INR APTT ABG Sample Site ABG pH ABG pCO2 ABG pO2 244 H ABG HCO3 Cancelled 10 L ABG Total CO2 Cancelled ABG O2 Saturation Cancelled ABG Base Excess VBG pH VBG pCO2 VBG pO2 VBG HCO3 VBG Total CO2 VBG O2 Saturation VBG Base Excess VBG Lactate Oxygen Liter Flow FiO2 Sodium Potassium Chloride Carbon Dioxide Anion Gap BUN Creatinine Est GFR (CKD-EPI 2020) Glucose Calcium Magnesium Iron TIBC Transferrin % Sat Total Bilirubin Conjugated Bilirubin AST ALT Alkaline Phosphatase Ammonia Troponin I Total Protein Albumin Vitamin B12 Folate Random Vancomycin Hepatitis A IgM Ab Hep Bs Antigen Hep B Core Total Ab Hepatitis C Antibody 06/25/23 06/25/23 06/25/23 01:25 01:25 01:25 WBC RBC Hgb Hct MCV MCH MCHC RDW Plt Count MPV Immature Gran % Neutrophils % Band Neutrophils % Lymphocytes % Atypical Lymphs % Monocytes % Eosinophils % Basophils % Metamyelocytes % Myelocytes % Promyelocytes % Other Cells % Nucleated RBC % Absolute Neutrophils Absolute Lymphocytes Absolute Monocytes Absolute Eosinophils Absolute Basophils RBC Morphology Polychromasia Hypochromasia Poikilocytosis Basophilic Stippling Anisocytosis Microcytosis Macrocytosis Spherocytes Tear Drop Cells Ovalocytes Stomatocytes Torres-[place] Bodies Akbar Cells/Echinocytes Acanthocytes (Spur) Schistocytes PT INR APTT ABG Sample Site ABG pH ABG pCO2 ABG pO2 ABG HCO3 ABG Total CO2 ABG O2 Saturation ABG Base Excess Cancelled -20 L VBG pH Cancelled VBG pCO2 Cancelled VBG pO2 Cancelled VBG HCO3 Cancelled VBG Total CO2 Cancelled VBG O2 Saturation Cancelled VBG Base Excess Cancelled VBG Lactate Oxygen Liter Flow Cancelled 100 FiO2 Cancelled Sodium 125 L Potassium 7.9 H* Chloride 93 L Carbon Dioxide 11.6 L Anion Gap 20.4 H BUN 40 H Creatinine 2.5 H Est GFR (CKD-EPI 2020) 27.30 Glucose 124 H Calcium 7.8 L Magnesium Iron TIBC Transferrin % Sat Total Bilirubin Conjugated Bilirubin AST ALT Alkaline Phosphatase Ammonia Troponin I Total Protein Albumin Vitamin B12 Folate Random Vancomycin Hepatitis A IgM Ab Hep Bs Antigen Hep B Core Total Ab Hepatitis C Antibody 06/25/23 06/25/23 06/25/23 03:25 05:23 05:35 WBC 23.58 H RBC 3.66 L Hgb 8.8 L Hct 30.9 L MCV 84 MCH 24.0 L MCHC 28.5 L RDW 20.7 H Plt Count 156 MPV 11.6 H Immature Gran % Neutrophils % Band Neutrophils % Lymphocytes % Atypical Lymphs % Monocytes % Eosinophils % Basophils % Metamyelocytes % Myelocytes % Promyelocytes % Other Cells % Nucleated RBC % Absolute Neutrophils Absolute Lymphocytes Absolute Monocytes Absolute Eosinophils Absolute Basophils RBC Morphology Polychromasia Hypochromasia Poikilocytosis Basophilic Stippling Anisocytosis Microcytosis Macrocytosis Spherocytes Tear Drop Cells Ovalocytes Stomatocytes Torres-[place]kom Bodies [place] Cells/Echinocytes Acanthocytes (Spur) Schistocytes PT 29.8 H INR 3.3 H APTT ABG Sample Site Arterial Line Arterial Line ABG pH 7.10 L* 7.17 L* ABG pCO2 33 L 27 L ABG pO2 197 H 176 H ABG HCO3 10 L 10 L ABG Total CO2 ABG O2 Saturation ABG Base Excess -20 L -19 L VBG pH VBG pCO2 VBG pO2 VBG HCO3 VBG Total CO2 VBG O2 Saturation VBG Base Excess VBG Lactate 10.8 H* Oxygen Liter Flow FiO2 70 55 Sodium Potassium Chloride Carbon Dioxide Anion Gap BUN Creatinine Est GFR (CKD-EPI 2020) Glucose Calcium Magnesium Iron TIBC Transferrin % Sat Total Bilirubin 2.1 H Conjugated Bilirubin 1.4 H AST > 8000 H ALT 2753 H Alkaline Phosphatase 130 H Ammonia 103 H Troponin I Total Protein 5.5 L Albumin 2.2 L Vitamin B12 Folate Random Vancomycin Hepatitis A IgM Ab Hep Bs Antigen Hep B Core Total Ab Hepatitis C Antibody 06/25/23 06/25/23 06/25/23 07:25 07:28 09:49 WBC RBC Hgb Hct MCV MCH MCHC RDW Plt Count MPV Immature Gran % Neutrophils % Band Neutrophils % Lymphocytes % Atypical Lymphs % Monocytes % Eosinophils % Basophils % Metamyelocytes % Myelocytes % Promyelocytes % Other Cells % Nucleated RBC % Absolute Neutrophils Absolute Lymphocytes Absolute Monocytes Absolute Eosinophils Absolute Basophils RBC Morphology Polychromasia Hypochromasia Poikilocytosis Basophilic Stippling Anisocytosis Microcytosis Macrocytosis Spherocytes Tear Drop Cells Ovalocytes Stomatocytes Torres-[place] Bodies [place] Cells/Echinocytes Acanthocytes (Spur) Schistocytes PT INR APTT ABG Sample Site Arterial Line Cancelled ABG pH 7.16 L* Cancelled ABG pCO2 36 Cancelled ABG pO2 164 H Cancelled ABG HCO3 13 L Cancelled ABG Total CO2 Cancelled ABG O2 Saturation > 99 H Cancelled ABG Base Excess -16 L Cancelled VBG pH VBG pCO2 VBG pO2 VBG HCO3 VBG Total CO2 VBG O2 Saturation VBG Base Excess VBG Lactate Oxygen Liter Flow Cancelled FiO2 50 Cancelled Sodium 124 L* Potassium 7.9 H* Chloride 92 L Carbon Dioxide 14.2 L Anion Gap 17.8 H BUN 44 H Creatinine 2.9 H Est GFR (CKD-EPI 2020) 22.85 Glucose 182 H Calcium 7.5 L Magnesium Iron TIBC Transferrin % Sat Total Bilirubin Conjugated Bilirubin AST ALT Alkaline Phosphatase Ammonia Troponin I Total Protein Albumin Vitamin B12 Folate Random Vancomycin 29.8 Hepatitis A IgM Ab Hep Bs Antigen Hep B Core Total Ab Hepatitis C Antibody 06/25/23 06/25/23 06/25/23 11:49 13:49 15:49 WBC RBC Hgb Hct MCV MCH MCHC RDW Plt Count MPV Immature Gran % Neutrophils % Band Neutrophils % Lymphocytes % Atypical Lymphs % Monocytes % Eosinophils % Basophils % Metamyelocytes % Myelocytes % Promyelocytes % Other Cells % Nucleated RBC % Absolute Neutrophils Absolute Lymphocytes Absolute Monocytes Absolute Eosinophils Absolute Basophils RBC Morphology Polychromasia Hypochromasia Poikilocytosis Basophilic Stippling Anisocytosis Microcytosis Macrocytosis Spherocytes Tear Drop Cells Ovalocytes Stomatocytes Torres-[place] Bodies [place] Cells/Echinocytes Acanthocytes (Spur) Schistocytes PT INR APTT ABG Sample Site Cancelled Cancelled Cancelled ABG pH Cancelled Cancelled Cancelled ABG pCO2 Cancelled Cancelled Cancelled ABG pO2 Cancelled Cancelled Cancelled ABG HCO3 Cancelled Cancelled Cancelled ABG Total CO2 Cancelled Cancelled Cancelled ABG O2 Saturation Cancelled Cancelled Cancelled ABG Base Excess Cancelled Cancelled Cancelled VBG pH VBG pCO2 VBG pO2 VBG HCO3 VBG Total CO2 VBG O2 Saturation VBG Base Excess VBG Lactate Oxygen Liter Flow Cancelled Cancelled Cancelled FiO2 Cancelled Cancelled Cancelled Sodium Potassium Chloride Carbon Dioxide Anion Gap BUN Creatinine Est GFR (CKD-EPI 2020) Glucose Calcium Magnesium Iron TIBC Transferrin % Sat Total Bilirubin Conjugated Bilirubin AST ALT Alkaline Phosphatase Ammonia Troponin I Total Protein Albumin Vitamin B12 Folate Random Vancomycin Hepatitis A IgM Ab Hep Bs Antigen Hep B Core Total Ab Hepatitis C Antibody 06/25/23 06/25/23 06/25/23 17:49 19:49 21:49 WBC RBC Hgb Hct MCV MCH MCHC RDW Plt Count MPV Immature Gran % Neutrophils % Band Neutrophils % Lymphocytes % Atypical Lymphs % Monocytes % Eosinophils % Basophils % Metamyelocytes % Myelocytes % Promyelocytes % Other Cells % Nucleated RBC % Absolute Neutrophils Absolute Lymphocytes Absolute Monocytes Absolute Eosinophils Absolute Basophils RBC Morphology Polychromasia Hypochromasia Poikilocytosis Basophilic Stippling Anisocytosis Microcytosis Macrocytosis Spherocytes Tear Drop Cells Ovalocytes Stomatocytes [place] Bodies [place] Cells/Echinocytes Acanthocytes (Spur) Schistocytes PT INR APTT ABG Sample Site Cancelled Cancelled Cancelled ABG pH Cancelled Cancelled Cancelled ABG pCO2 Cancelled Cancelled Cancelled ABG pO2 Cancelled Cancelled Cancelled ABG HCO3 Cancelled Cancelled Cancelled ABG Total CO2 Cancelled Cancelled Cancelled ABG O2 Saturation Cancelled Cancelled Cancelled ABG Base Excess Cancelled Cancelled Cancelled VBG pH VBG pCO2 VBG pO2 VBG HCO3 VBG Total CO2 VBG O2 Saturation VBG Base Excess VBG Lactate Oxygen Liter Flow Cancelled Cancelled Cancelled FiO2 Cancelled Cancelled Cancelled Sodium Potassium Chloride Carbon Dioxide Anion Gap BUN Creatinine Est GFR (CKD-EPI 2020) Glucose Calcium Magnesium Iron TIBC Transferrin % Sat Total Bilirubin Conjugated Bilirubin AST ALT Alkaline Phosphatase Ammonia Troponin I Total Protein Albumin Vitamin B12 Folate Random Vancomycin Hepatitis A IgM Ab Hep Bs Antigen Hep B Core Total Ab Hepatitis C Antibody 06/25/23 23:49 WBC RBC Hgb Hct MCV MCH MCHC RDW Plt Count MPV Immature Gran % Neutrophils % Band Neutrophils % Lymphocytes % Atypical Lymphs % Monocytes % Eosinophils % Basophils % Metamyelocytes % Myelocytes % Promyelocytes % Other Cells % Nucleated RBC % Absolute Neutrophils Absolute Lymphocytes Absolute Monocytes Absolute Eosinophils Absolute Basophils RBC Morphology Polychromasia Hypochromasia Poikilocytosis Basophilic Stippling Anisocytosis Microcytosis Macrocytosis Spherocytes Tear Drop Cells Ovalocytes Stomatocytes Torres-[place] Bodies [place] Cells/Echinocytes Acanthocytes (Spur) Schistocytes PT INR APTT ABG Sample Site Cancelled ABG pH Cancelled ABG pCO2 Cancelled ABG pO2 Cancelled ABG HCO3 Cancelled ABG Total CO2 Cancelled ABG O2 Saturation Cancelled ABG Base Excess Cancelled VBG pH VBG pCO2 VBG pO2 VBG HCO3 VBG Total CO2 VBG O2 Saturation VBG Base Excess VBG Lactate Oxygen Liter Flow Cancelled FiO2 Cancelled Sodium Potassium Chloride Carbon Dioxide Anion Gap BUN Creatinine Est GFR (CKD-EPI 2020) Glucose Calcium Magnesium Iron TIBC Transferrin % Sat Total Bilirubin Conjugated Bilirubin AST ALT Alkaline Phosphatase Ammonia Troponin I Total Protein Albumin Vitamin B12 Folate Random Vancomycin Hepatitis A IgM Ab Hep Bs Antigen Hep B Core Total Ab Hepatitis C Antibody Review of Systems Unobtainable due to mental status Time spent with patient Time spent in Critical Care: 120 Time spent in Critical care included: Performing procedures not included in c.c time, Coordination of care, Chart review, Documenting critically ill care, Time at immediate bedside and Discussing critically ill care with other medical staff Pocus Exam Limited Cardiac Exam DATE OF EXAM: 06/25/23 TIME OF EXAM: 08:30 PROVIDER THAT PERFORMED THE STUDY: Love Zhou IS THIS A REPEAT EXAM DURING THIS ENCOUNTER: no REASON FOR EXAM: Hypotension VISUALIZED STRUCTURES: four chambers, Interventricular septum and IVC VIEW OBTAINED: Apical 4-Chamber and Subxiphoid PERTINENT FINDINGS/IMPRESSION: LV dysfunction, Plethoric IVC, RV dilation and RV dysfunction Exam complete
[2023-06-25 09:23] LABS: BE (Venous) -12 mmol/L (-2-3); HCO3 (Venous) 17 mmol/L (23-28); O2 Sat (Venous) 83 %; TCO2 (Venous) 17 mmol/L (24-29); pCO2 (Venous) 45 mmHg (41-51); pO2 (Venous) 57 mmHg
[2023-06-25 09:28] LABS: pH (Venous) 7.18 (7.31-7.41)
[2023-06-25] MEDS: DOBUTamine 500 MG/250 ML BAG 11.67 MG IV (09:34)
[2023-06-25 09:37] LABS: Ammonia 53 umol/L (11-32)
[2023-06-25 09:39] LABS: Anion Gap 13.4 mmol/L (3-11); BUN 45 mg/dL (7-18); CO2 19.6 mmol/L (21.0-32.0); Calcium 7.3 mg/dL (8.5-10.1); Chloride 91 mmol/L (98-107); Estimated GFR 21.94 (mL/min/1.73m2); Glucose 224 mg/dL (74-106); Magnesium 1.8 mg/dL (1.8-2.4); PHOSPHORUS 7.4 mg/dL (2.6-4.7)
[2023-06-25 09:40] LABS: Potassium 7.5 mmol/L (3.5-5.1); Sodium 124 mmol/L (136-145)
[2023-06-25 09:42] LABS: INR 3.3 (0.9-1.1); PTT Activated 37.7 sec (23.6-32.8); Prothrombin Time 30.1 sec (9.1-11.1)
[2023-06-25 10:00] LABS: D-Dimer 2656 ng/mlFEU (<500)
[2023-06-25] MEDS: Sodium Zirconium Cyclosilicate 10 GM PKT PO (10:00)
[2023-06-25 10:19] LABS: Lab Add On Test COMPLETED
--- NOTE | 2023-06-25 10:27 | W.PM.DS.N ---
Date of service: 06/25/23 Time of Service: 10:27 DS: Diagnosis Discharge Diagnosis (1) Shock circulatory: Status: Acute Asessment and Plan: Initial concern was toxic shock syndrome related to prolonged placement of rhinorocket vs septic shock of unclear source. See hospital course. He received isotonic fluids and was briefly on norepinephrine drip overnight before transfer. (2) Acute liver failure: Status: Acute Asessment and Plan: Unclear baseline hepatic dysfunction, but rapid deterioration from 06/22 to 06/23 when he decompensated. (3) Acute renal failure: Status: Acute (4) Hyperkalemia: Status: Acute Asessment and Plan: Refractory to insulin/dextrose, furosemide, Lokelma, bicarbonate. Associated with metabolic acidosis. Needs hemodialysis emergently. (5) HFrEF (heart failure with reduced ejection fraction): Status: Acute Asessment and Plan: He had an LVEF of 40% in 2021, but his admission diagnosis listed preserved ejection fraction and he was not previously on GDMT other than metoprolol. LVEF grossly worse to 20-25% on POCUS in setting of shock. (6) COPD (chronic obstructive pulmonary disease): Status: Chronic (7) Acute posterior epistaxis: Status: Acute Asessment and Plan: left side, has not rebled since rhinorocket removed 06/23 (8) Hyponatremia: Status: Resolved Asessment and Plan: in setting of shock (9) Encephalopathy: Status: Acute Asessment and Plan: Ammonia moderated elevated in setting of acute liver failure. (10) Hypocalcemia: Status: Acute (11) Hyperphosphatemia: Status: Acute (12) Anemia due to blood loss: Status: Acute Asessment and Plan: relatively stable (13) Leukocytosis: Status: Acute (14) Coagulopathy: Status: Acute (15) Lactic acidosis: Status: Acute (16) High anion gap metabolic acidosis: Status: Acute (17) Hepatitis C: Status: Chronic Asessment and Plan: treated per patient but not documented. repeat acute hepatitis panel pending upon discharge Discharge Plan Disposition Patient Disposition: Transfer-Acute Inpatient Care Specific Acute Inpt Facility: [facility] Condition: Critical Discharge Details Reason For Visit: Epistaxis Admit Date/Time: 06/19/23 07:51 Admit Provider: Ian Trent Attending Provider: Ian Trent Primary Care Provider: Sherri Guzman V Hospital Course Hospital Course: 68 yo M with history of HFrEf, COPD, treated hepatitis C without known cirrhosis, cocaine use, admitted with severe epistaxis. Rhino Rocket soaked in tranexamic acid placed in the emergency room, patient rebled. At that point dual lumen Rhino Rocket placed, still bleeding, Dr. Bhatti from ENT came to adjust and bleeding stopped. Aspirin held on admission. This was his third significant epistaxis in the past. Decision was made to admit to monitor on 06/19/23. Patient had episode of bleeding around 1900 on 06/20/2023, and another episode of bleeding at around 7 AM in the morning of 06/21/2023, both episodes resolved after reinflation of balloons. Given these episodes, decision was made to leave the device in place until ENT available 06/25/23 AM. He was given amoxicillin/clavulonate x 1 in the ED when discharge was being considered, then given cefazolin. This was changed to cefepime 06/20 when he had a fever to 38.5, which resolved by 06/21 at 8am. The patient has a history of hepatitis C and some hepatic dysfunction noted at baseline. INR on admission was 1.4. He was given vitamin K x 1 with no change. AST was noted trending up from 42 on admission to 278, but he had a benign abdominal exam. Labs were ordered for 06/24/23 but that morning he complained that he was exhausted and hadn't slept in 2 nights, and he refused the labs. He was noted sleeping during the day, but around 5:30 he was sleeping but with poor color, cyanotic extremities, and was difficult to arouse. Rapid response called, FS glucose noted to be 12, given D50 x 2 amps, transfered to ICU. He was able to speak and say I'm up when being repositioned for vital signs before the D50, but became more interactive after the dextrose. His blood pressure and oxygenation were normal at that point, but he was transferred to the ICU. Alarming labs began to return including K+ of 7.9 and markeded elevated AST to 7414 and ALT to 2192. INR up to 2.7. Potassium was treated with calcium gluconate, insulin/dextrose. Later bicarb drip and furosemide started. Darlingkelma given x 1. Abdominal ultrasound read pending from 06/24 AM, but preliminarily did not show hepatic or portal vein thrombosis. Mild ascites noted. Concern was for toxic shock so Rhino Rocket removed without rebleed just after transfer to ICU. In addition to INR, PTT was 37.9, Fibrinogen was 248 (nl). Vancomycin was added to cefepime at time of transfer to the ICU. Clindamycin added later on 06/24 over concern for toxic shock syndrome. Stress dose steroids with hydrocortisone were started upon transfer to ICU after episode of hypoglycemia. POCUS exam showed LVEF 20-25%, down from 40% at last echocardiogram done in 2021. Troponin was negative on transfer to ICU. EKGs did not show ischemic changes. Overnight he needed BiPAP for respiratory support, blood pressures did drop into 60s systolic, the patient was intubated due to concern for airway protection. Norepinephrine started and BP stablized. Right IJ line placed. He came off norepinephrine, was given dobutamine after discussion with accepting java solutions [employer] team. The patient was easy to ventilate, but metabolic acidosis and hyperkalemia were not improving. The patient did have 350ml of urine in his alston upon transfer, but only made about 20ml of dark urine after that. The patient requested that we not contact his family when he was still speaking in the ICU the night before transfer. Upon transfer his next of kin Tarah Coy was called but was not able to be reached. Home Meds and New Rx's Prescriptions: New amoxicillin-pot clavulanate 875-125 mg tablet 1 tab PO BID Qty: 6 0RF Continued vitamin B complex Tablet 1 tab PO DAILY spironolactone 25 mg tablet 25 mg PO DAILY Cerovite Senior 0.4 mg-300 mcg- 250 mcg tablet 1 tab PO DAILY celecoxib 100 mg capsule 100 mg PO BID Patient Comments: only takes 100 mg once a day cholecalciferol (vitamin D3) 50 mcg (2,000 unit) capsule 50 mcg PO DAILY hydrocodone-acetaminophen 10-325 mg tablet 1 tab PO QID PRN metoprolol succinate 50 mg tablet extended release 24 hr 25 mg PO DAILY aspirin 81 mg Tablet,Delayed Release (Dr/Ec) 81 mg PO DAILY cyclobenzaprine 10 mg Tablet 10 mg PO TID PRN PRN bupropion HCl 150 mg Tablet Sustained-Release 12 Hr 150 mg PO BID citalopram 20 mg Tablet 20 mg PO QAM gabapentin 800 mg Tablet 800 mg PO TID albuterol sulfate 90 mcg/actuation Hfa Aerosol Inhaler 2 puff INHALATION Q6H PRN PRN diclofenac sodium 1 % Gel 4 g TOPICAL BID PRN PRN verapamil 120 mg Tablet Extended Release 120 mg PO DAILY triamcinolone acetonide 0.1 % Cream 1 applic TOPICAL BID Patient Comments: Pt has discontinued medication but has on hand in case he needs in the future magnesium oxide 400 mg (241.3 mg magnesium) Tablet 400 mg PO DAILY pantoprazole 40 mg Tablet,Delayed Release (Dr/Ec) 40 mg PO DAILY topiramate 50 mg Tablet 50 mg PO BID zolpidem 10 mg Tablet 10 mg PO QHS PRN (Reason: Insomnia) albuterol sulfate 2.5 mg /3 mL (0.083 %) Solution For Nebulization 2.5 mg UPD Q2H PRN PRNQty: 0 0RF ipratropium-albuterol 0.5 mg-3 mg(2.5 mg base)/3 mL Solution For Nebulization 3 ml UPD Q6H Qty: 0 0RF polyethylene glycol 3350 17 gram Powder In Packet 17 g PO DAILY PRN PRN (Reason: Constipation) Qty: 0 0RF sumatriptan succinate 25 mg tablet See Rx Instructions .ROUTE .COMPLEX PRN Patient Comments: Pt reports last use sometime over the summer Rx Instructions: Pt unable to confirm strength of sumatriptan- si tab po at onset of headache, if no relief may repeat 1 tab after at least 2 hours, max 4 tabs/24 hours PRN; Discharge Instructions Instructions: Nosebleed (ED) Additional Instructions: Leave the nasal packing in place. Followup with ENT in 3 days (if unable to followup with ENT please return to the emergency department) to have the packing removed. Antibiotics twice a day until the packing is removed. Return to the emergency department for new or worsening symptoms including fever, feeling like you are going to pass out, recurrent nosebleed, or if you have any other concerns. Referrals: [facility] [Provider Group] Sherri Guzman MD [Primary Care Provider] - Activity:: Activity as Tolerated Equipment/Supplies:: No Equipment Needed Diet:: npo Discharge Orders Discharge Orders: Discharge Order (Routine); Ordered 06/25/23 Ordered By: Renzo Woods DS: Summary Time Spent with Patient providing and/or coordinating discharge services: Greater than 30 minutes Status at Discharge Functional status at discharge: bed bound Overall status at discharge: patient is not back to baseline Mental Status: other (intubated and sedated) Speech and Movement: other (intubated and sedated) Mood: other (intubated and sedated) Affect: other Quality:SDOH Health Related Social Needs: No Data to Display Exam Narrative Exam Narrative: Intubated and sedated. No bleeding from nares. breath sounds bilaterally, moving air well, no rales. heart irregularly irregular. Abdomen soft, no masses, slight fliud wave? 2+ beto LE edema, mottling over knees, toes purple with cap refill ~2-3 seconds. Psych Mental Status: other (intubated and sedated) Speech and Movement: other (intubated and sedated) Mood: other (intubated and sedated) Affect: other DS: Data Vitals/I&O Vitals and I&O: Vital Signs Temperature 35.5 C L 06/25/23 09:44 Temperature Source Temporal Artery Scan 06/25/23 09:44 Pulse 81 06/25/23 03:31 Pulse Rhythm Irregular 06/24/23 08:50 Pulse Strength Normal 06/19/23 06:53 Pulse 81 06/25/23 09:40 Respiratory Rate 14 06/25/23 09:40 Respiratory Effort Mechanically Ventilated 06/25/23 03:49 Respiratory Depth Deep 06/25/23 00:57 Respiratory Pattern Tachypnea 06/24/23 18:35 Blood Pressure 106/61 06/25/23 08:09 Blood Pressure Mean 95 06/25/23 02:01 Blood Pressure Position Supine 06/24/23 18:35 Pulse Oximetry 59 L 06/25/23 01:37 Respiratory End-tidal CO2 29 06/25/23 08:09 Oxygen Delivery Method Mechanical Ventilator 06/25/23 01:37 Oxygen Flow Rate 0 06/25/23 01:37 Fraction of Inspired Oxygen (FIO2) 40 06/25/23 08:09 Pain Level 3 06/24/23 15:07 Comment Patient is mechanically ventilated. Kristopher bailey is on patient at medium setting (38 C) at this time. 06/25/23 09:44 Comment 4L oxymask 06/24/23 20:16 Arterial Systolic 106 06/25/23 09:40 Arterial Diastolic 59 06/25/23 09:40 Arterial Mean 72 06/25/23 09:40 Intake & Output 06/24/23 06/24/23 06/25/23 11:59 23:59 11:59 Intake Total 350 / 635.833 285.833 / 165.066 2017.427 / 5525.427 Output Total 925 / 925 Balance 350 / 635.833 285.833 / 885.174 5592.427 / 4600.427 Weight 77.8 kg Intake: IV 100 / 285.833 185.833 / 765.783 4677.427 / 5525.427 Oral 250 / 350 100 / 350 Output: Gastric Drainage 550 / 550 Oral 550 / 550 Urine 375 / 375 Other: Urine Color Yellow Light Meena Urine Appearance Clear Cloudy Comment Voids independently. alston in place and patent Voiding Methods Toilet Data Completed and Pending Labs on day of discharge: Labs from last 24 hours 06/25/23 06/25/23 06/25/23 Unknown 23:49 21:49 WBC RBC Hgb Hct MCV MCH MCHC RDW Plt Count MPV Immature Gran % Neutrophils % Band Neutrophils % Lymphocytes % Atypical Lymphs % Monocytes % Eosinophils % Basophils % Metamyelocytes % Myelocytes % Promyelocytes % Other Cells % Nucleated RBC % Absolute Neutrophils Absolute Lymphocytes Absolute Monocytes Absolute Eosinophils Absolute Basophils RBC Morphology Polychromasia Hypochromasia Poikilocytosis Basophilic Stippling Anisocytosis Microcytosis Macrocytosis Spherocytes Tear Drop Cells Ovalocytes Stomatocytes Torres-[place] Bodies Akbar Cells/Echinocytes Acanthocytes (Spur) Schistocytes PT INR APTT Fibrinogen Pending D-Dimer ABG Sample Site Cancelled Cancelled ABG pH Cancelled Cancelled ABG pCO2 Cancelled Cancelled ABG pO2 Cancelled Cancelled ABG HCO3 Cancelled Cancelled ABG Total CO2 Cancelled Cancelled ABG O2 Saturation Cancelled Cancelled ABG Base Excess Cancelled Cancelled VBG pH VBG pCO2 VBG pO2 VBG HCO3 VBG Total CO2 VBG O2 Saturation VBG Base Excess VBG Lactate Oxygen Liter Flow Cancelled Cancelled FiO2 Cancelled Cancelled Sodium Potassium Chloride Carbon Dioxide Anion Gap BUN Creatinine Est GFR (CKD-EPI 2020) Glucose Calcium Phosphorus Magnesium Iron TIBC Transferrin % Sat Total Bilirubin Conjugated Bilirubin AST ALT Alkaline Phosphatase Ammonia Troponin I Total Protein Albumin Vitamin B12 Folate Random Vancomycin Hepatitis A IgM Ab Hep Bs Antigen Hep B Core Total Ab Hepatitis C Antibody HIV 1&2 Ag/Ab, 4th Gen Pending Add-On Test Request 06/25/23 06/25/23 06/25/23 20:30 19:49 17:49 WBC RBC Hgb Hct MCV MCH MCHC RDW Plt Count MPV Immature Gran % Neutrophils % Band Neutrophils % Lymphocytes % Atypical Lymphs % Monocytes % Eosinophils % Basophils % Metamyelocytes % Myelocytes % Promyelocytes % Other Cells % Nucleated RBC % Absolute Neutrophils Absolute Lymphocytes Absolute Monocytes Absolute Eosinophils Absolute Basophils RBC Morphology Polychromasia Hypochromasia Poikilocytosis Basophilic Stippling Anisocytosis Microcytosis Macrocytosis Spherocytes Tear Drop Cells Ovalocytes Stomatocytes Torres[place] Bodies Akbar Cells/Echinocytes Acanthocytes (Spur) Schistocytes PT INR APTT Fibrinogen D-Dimer ABG Sample Site Cancelled Cancelled ABG pH Cancelled Cancelled ABG pCO2 Cancelled Cancelled ABG pO2 Cancelled Cancelled ABG HCO3 Cancelled Cancelled ABG Total CO2 Cancelled Cancelled ABG O2 Saturation Cancelled Cancelled ABG Base Excess Cancelled Cancelled VBG pH Pending VBG pCO2 Pending VBG pO2 Pending VBG HCO3 Pending VBG Total CO2 Pending VBG O2 Saturation Pending VBG Base Excess Pending VBG Lactate Oxygen Liter Flow Cancelled Cancelled FiO2 Cancelled Cancelled Sodium Pending Potassium Pending Chloride Pending Carbon Dioxide Pending Anion Gap Pending BUN Pending Creatinine Pending Est GFR (CKD-EPI 2020) Pending Glucose Pending Calcium Pending Phosphorus Magnesium Iron TIBC Transferrin % Sat Total Bilirubin Conjugated Bilirubin AST ALT Alkaline Phosphatase Ammonia Troponin I Total Protein Albumin Vitamin B12 Folate Random Vancomycin Hepatitis A IgM Ab Hep Bs Antigen Hep B Core Total Ab Hepatitis C Antibody HIV 1&2 Ag/Ab, 4th Gen Add-On Test Request 06/25/23 06/25/23 06/25/23 15:49 14:30 13:49 WBC RBC Hgb Hct MCV MCH MCHC RDW Plt Count MPV Immature Gran % Neutrophils % Band Neutrophils % Lymphocytes % Atypical Lymphs % Monocytes % Eosinophils % Basophils % Metamyelocytes % Myelocytes % Promyelocytes % Other Cells % Nucleated RBC % Absolute Neutrophils Absolute Lymphocytes Absolute Monocytes Absolute Eosinophils Absolute Basophils RBC Morphology Polychromasia Hypochromasia Poikilocytosis Basophilic Stippling Anisocytosis Microcytosis Macrocytosis Spherocytes Tear Drop Cells Ovalocytes Stomatocytes [place] Bodies [place] Cells/Echinocytes Acanthocytes (Spur) Schistocytes PT INR APTT Fibrinogen D-Dimer ABG Sample Site Cancelled Cancelled ABG pH Cancelled Cancelled ABG pCO2 Cancelled Cancelled ABG pO2 Cancelled Cancelled ABG HCO3 Cancelled Cancelled ABG Total CO2 Cancelled Cancelled ABG O2 Saturation Cancelled Cancelled ABG Base Excess Cancelled Cancelled VBG pH Pending VBG pCO2 Pending VBG pO2 Pending VBG HCO3 Pending VBG Total CO2 Pending VBG O2 Saturation Pending VBG Base Excess Pending VBG Lactate Oxygen Liter Flow Cancelled Cancelled FiO2 Cancelled Cancelled Sodium Pending Potassium Pending Chloride Pending Carbon Dioxide Pending Anion Gap Pending BUN Pending Creatinine Pending Est GFR (CKD-EPI 2020) Pending Glucose Pending Calcium Pending Phosphorus Magnesium Iron TIBC Transferrin % Sat Total Bilirubin Conjugated Bilirubin AST ALT Alkaline Phosphatase Ammonia Troponin I Total Protein Albumin Vitamin B12 Folate Random Vancomycin Hepatitis A IgM Ab Hep Bs Antigen Hep B Core Total Ab Hepatitis C Antibody HIV 1&2 Ag/Ab, 4th Gen Add-On Test Request 06/25/23 06/25/23 06/25/23 11:49 09:49 09:09 WBC RBC Hgb Hct MCV MCH MCHC RDW Plt Count MPV Immature Gran % Neutrophils % Band Neutrophils % Lymphocytes % Atypical Lymphs % Monocytes % Eosinophils % Basophils % Metamyelocytes % Myelocytes % Promyelocytes % Other Cells % Nucleated RBC % Absolute Neutrophils Absolute Lymphocytes Absolute Monocytes Absolute Eosinophils Absolute Basophils RBC Morphology Polychromasia Hypochromasia Poikilocytosis Basophilic Stippling Anisocytosis Microcytosis Macrocytosis Spherocytes Tear Drop Cells Ovalocytes Stomatocytes [place] Bodies [place] Cells/Echinocytes Acanthocytes (Spur) Schistocytes PT INR APTT Fibrinogen D-Dimer ABG Sample Site Cancelled Cancelled ABG pH Cancelled Cancelled ABG pCO2 Cancelled Cancelled ABG pO2 Cancelled Cancelled ABG HCO3 Cancelled Cancelled ABG Total CO2 Cancelled Cancelled ABG O2 Saturation Cancelled Cancelled ABG Base Excess Cancelled Cancelled VBG pH VBG pCO2 VBG pO2 VBG HCO3 VBG Total CO2 VBG O2 Saturation VBG Base Excess VBG Lactate Oxygen Liter Flow Cancelled Cancelled FiO2 Cancelled Cancelled Sodium Potassium Chloride Carbon Dioxide Anion Gap BUN Creatinine Est GFR (CKD-EPI 2020) Glucose Calcium Phosphorus Magnesium Cancelled Iron TIBC Transferrin % Sat Total Bilirubin Conjugated Bilirubin AST ALT Alkaline Phosphatase Ammonia 53 H Troponin I Total Protein Albumin Vitamin B12 Folate Random Vancomycin Hepatitis A IgM Ab Hep Bs Antigen Hep B Core Total Ab Hepatitis C Antibody HIV 1&2 Ag/Ab, 4th Gen Add-On Test Request COMPLETED 06/25/23 06/25/23 06/25/23 09:09 09:09 07:28 WBC RBC Hgb Hct MCV MCH MCHC RDW Plt Count MPV Immature Gran % Neutrophils % Band Neutrophils % Lymphocytes % Atypical Lymphs % Monocytes % Eosinophils % Basophils % Metamyelocytes % Myelocytes % Promyelocytes % Other Cells % Nucleated RBC % Absolute Neutrophils Absolute Lymphocytes Absolute Monocytes Absolute Eosinophils Absolute Basophils RBC Morphology Polychromasia Hypochromasia Poikilocytosis Basophilic Stippling Anisocytosis Microcytosis Macrocytosis Spherocytes Tear Drop Cells Ovalocytes Stomatocytes Torres-[place] Bodies Akbar Cells/Echinocytes Acanthocytes (Spur) Schistocytes PT 30.1 H INR 3.3 H APTT 37.7 H Fibrinogen D-Dimer 2656 H ABG Sample Site ABG pH ABG pCO2 ABG pO2 ABG HCO3 ABG Total CO2 ABG O2 Saturation ABG Base Excess VBG pH 7.18 L* VBG pCO2 45 VBG pO2 57 VBG HCO3 17 L VBG Total CO2 17 L VBG O2 Saturation 83 VBG Base Excess -12 L VBG Lactate Oxygen Liter Flow FiO2 Sodium 124 L* 124 L* Potassium 7.5 H* 7.9 H* Chloride 91 L 92 L Carbon Dioxide 19.6 L 14.2 L Anion Gap 13.4 H 17.8 H BUN 45 H 44 H Creatinine 3.0 H 2.9 H Est GFR (CKD-EPI 2020) 21.94 22.85 Glucose 224 H 182 H Calcium 7.3 L 7.5 L Phosphorus Cancelled 7.4 H Magnesium 1.8 Iron TIBC Transferrin % Sat Total Bilirubin Conjugated Bilirubin AST ALT Alkaline Phosphatase Ammonia Troponin I Total Protein Albumin Vitamin B12 Folate Random Vancomycin 29.8 Hepatitis A IgM Ab Hep Bs Antigen Hep B Core Total Ab Hepatitis C Antibody HIV 1&2 Ag/Ab, 4th Gen Add-On Test Request 06/25/23 06/25/2306/24/24 07:25 05:35 05:23 WBC 23.58 H RBC 3.66 L Hgb 8.8 L Hct 30.9 L MCV 84 MCH 24.0 L MCHC 28.5 L RDW 20.7 H Plt Count 156 MPV 11.6 H Immature Gran % Neutrophils % Band Neutrophils % Lymphocytes % Atypical Lymphs % Monocytes % Eosinophils % Basophils % Metamyelocytes % Myelocytes % Promyelocytes % Other Cells % Nucleated RBC % Absolute Neutrophils Absolute Lymphocytes Absolute Monocytes Absolute Eosinophils Absolute Basophils RBC Morphology Polychromasia Hypochromasia Poikilocytosis Basophilic Stippling Anisocytosis Microcytosis Macrocytosis Spherocytes Tear Drop Cells Ovalocytes Stomatocytes Torres-[place] Bodies Akbar Cells/Echinocytes Acanthocytes (Spur) Schistocytes PT 29.8 H INR 3.3 H APTT Fibrinogen D-Dimer ABG Sample Site Arterial Line Arterial Line ABG pH 7.16 L* 7.17 L* ABG pCO2 36 27 L ABG pO2 164 H 176 H ABG HCO3 13 L 10 L ABG Total CO2 ABG O2 Saturation > 99 H ABG Base Excess -16 L -19 L VBG pH VBG pCO2 VBG pO2 VBG HCO3 VBG Total CO2 VBG O2 Saturation VBG Base Excess VBG Lactate 10.8 H* Oxygen Liter Flow FiO2 50 55 Sodium Potassium Chloride Carbon Dioxide Anion Gap BUN Creatinine Est GFR (CKD-EPI 2020) Glucose Calcium Phosphorus Magnesium Iron TIBC Transferrin % Sat Total Bilirubin 2.1 H Conjugated Bilirubin 1.4 H AST > 8000 H ALT 2753 H Alkaline Phosphatase 130 H Ammonia 103 H Troponin I Total Protein 5.5 L Albumin 2.2 L Vitamin B12 Folate Random Vancomycin Hepatitis A IgM Ab Hep Bs Antigen Hep B Core Total Ab Hepatitis C Antibody HIV 1&2 Ag/Ab, 4th Gen Add-On Test Request 06/25/23 06/25/23 06/25/23 03:25 01:25 01:25 WBC RBC Hgb Hct MCV MCH MCHC RDW Plt Count MPV Immature Gran % Neutrophils % Band Neutrophils % Lymphocytes % Atypical Lymphs % Monocytes % Eosinophils % Basophils % Metamyelocytes % Myelocytes % Promyelocytes % Other Cells % Nucleated RBC % Absolute Neutrophils Absolute Lymphocytes Absolute Monocytes Absolute Eosinophils Absolute Basophils RBC Morphology Polychromasia Hypochromasia Poikilocytosis Basophilic Stippling Anisocytosis Microcytosis Macrocytosis Spherocytes Tear Drop Cells Ovalocytes Stomatocytes Torres-[place] Bodies Akbar Cells/Echinocytes Acanthocytes (Spur) Schistocytes PT INR APTT Fibrinogen D-Dimer ABG Sample Site Arterial Line ABG pH 7.10 L* ABG pCO2 33 L ABG pO2 197 H ABG HCO3 10 L ABG Total CO2 ABG O2 Saturation ABG Base Excess -20 L -20 L VBG pH Cancelled VBG pCO2 Cancelled VBG pO2 Cancelled VBG HCO3 Cancelled VBG Total CO2 Cancelled VBG O2 Saturation Cancelled VBG Base Excess Cancelled VBG Lactate Oxygen Liter Flow 100 Cancelled FiO2 70 Cancelled Sodium 125 L Potassium 7.9 H* Chloride 93 L Carbon Dioxide 11.6 L Anion Gap 20.4 H BUN 40 H Creatinine 2.5 H Est GFR (CKD-EPI 2020) 27.30 Glucose 124 H Calcium 7.8 L Phosphorus Magnesium Iron TIBC Transferrin % Sat Total Bilirubin Conjugated Bilirubin AST ALT Alkaline Phosphatase Ammonia Troponin I Total Protein Albumin Vitamin B12 Folate Random Vancomycin Hepatitis A IgM Ab Hep Bs Antigen Hep B Core Total Ab Hepatitis C Antibody HIV 1&2 Ag/Ab, 4th Gen Add-On Test Request 06/25/23 06/25/23 06/25/23 01:25 01:25 01:25 WBC RBC Hgb Hct MCV MCH MCHC RDW Plt Count MPV Immature Gran % Neutrophils % Band Neutrophils % Lymphocytes % Atypical Lymphs % Monocytes % Eosinophils % Basophils % Metamyelocytes % Myelocytes % Promyelocytes % Other Cells % Nucleated RBC % Absolute Neutrophils Absolute Lymphocytes Absolute Monocytes Absolute Eosinophils Absolute Basophils RBC Morphology Polychromasia Hypochromasia Poikilocytosis Basophilic Stippling Anisocytosis Microcytosis Macrocytosis Spherocytes Tear Drop Cells Ovalocytes Stomatocytes Torres-[place] Bodies [place] Cells/Echinocytes Acanthocytes (Spur) Schistocytes PT INR APTT Fibrinogen D-Dimer ABG Sample Site ABG pH ABG pCO2 ABG pO2 ABG HCO3 10 L ABG Total CO2 Cancelled ABG O2 Saturation Cancelled ABG Base Excess Cancelled VBG pH VBG pCO2 VBG pO2 VBG HCO3 VBG Total CO2 VBG O2 Saturation VBG Base Excess VBG Lactate Oxygen Liter Flow FiO2 Sodium Potassium Chloride Carbon Dioxide Anion Gap BUN Creatinine Est GFR (CKD-EPI 2020) Glucose Calcium Phosphorus Magnesium Iron TIBC Transferrin % Sat Total Bilirubin Conjugated Bilirubin AST ALT Alkaline Phosphatase Ammonia Troponin I Total Protein Albumin Vitamin B12 Folate Random Vancomycin Hepatitis A IgM Ab Hep Bs Antigen Hep B Core Total Ab Hepatitis C Antibody HIV 1&2 Ag/Ab, 4th Gen Add-On Test Request 06/25/23 06/25/23 06/25/23 01:25 01:25 01:25 WBC RBC Hgb Hct MCV MCH MCHC RDW Plt Count MPV Immature Gran % Neutrophils % Band Neutrophils % Lymphocytes % Atypical Lymphs % Monocytes % Eosinophils % Basophils % Metamyelocytes % Myelocytes % Promyelocytes % Other Cells % Nucleated RBC % Absolute Neutrophils Absolute Lymphocytes Absolute Monocytes Absolute Eosinophils Absolute Basophils RBC Morphology Polychromasia Hypochromasia Poikilocytosis Basophilic Stippling Anisocytosis Microcytosis Macrocytosis Spherocytes Tear Drop Cells Ovalocytes Stomatocytes Torres-[place] Bodies [place] Cells/Echinocytes Acanthocytes (Spur) Schistocytes PT INR APTT Fibrinogen D-Dimer ABG Sample Site ABG pH 7.12 L* ABG pCO2 31 L Cancelled ABG pO2 244 H Cancelled ABG HCO3 Cancelled ABG Total CO2 ABG O2 Saturation ABG Base Excess VBG pH VBG pCO2 VBG pO2 VBG HCO3 VBG Total CO2 VBG O2 Saturation VBG Base Excess VBG Lactate Oxygen Liter Flow FiO2 Sodium Potassium Chloride Carbon Dioxide Anion Gap BUN Creatinine Est GFR (CKD-EPI 2020) Glucose Calcium Phosphorus Magnesium Iron TIBC Transferrin % Sat Total Bilirubin Conjugated Bilirubin AST ALT Alkaline Phosphatase Ammonia Troponin I Total Protein Albumin Vitamin B12 Folate Random Vancomycin Hepatitis A IgM Ab Hep Bs Antigen Hep B Core Total Ab Hepatitis C Antibody HIV 1&2 Ag/Ab, 4th Gen Add-On Test Request 06/25/23 06/25/23 06/24/23 01:25 01:25 22:37 WBC RBC Hgb Hct MCV MCH MCHC RDW Plt Count MPV Immature Gran % Neutrophils % Band Neutrophils % Lymphocytes % Atypical Lymphs % Monocytes % Eosinophils % Basophils % Metamyelocytes % Myelocytes % Promyelocytes % Other Cells % Nucleated RBC % Absolute Neutrophils Absolute Lymphocytes Absolute Monocytes Absolute Eosinophils Absolute Basophils RBC Morphology Polychromasia Hypochromasia Poikilocytosis Basophilic Stippling Anisocytosis Microcytosis Macrocytosis Spherocytes Tear Drop Cells Ovalocytes Stomatocytes Torres-[place] Bodies [place] Cells/Echinocytes Acanthocytes (Spur) Schistocytes PT INR APTT Fibrinogen D-Dimer ABG Sample Site Arterial Line Cancelled ABG pH Cancelled ABG pCO2 ABG pO2 ABG HCO3 ABG Total CO2 ABG O2 Saturation ABG Base Excess VBG pH VBG pCO2 VBG pO2 VBG HCO3 VBG Total CO2 VBG O2 Saturation VBG Base Excess VBG Lactate Oxygen Liter Flow FiO2 Sodium Potassium Chloride Carbon Dioxide Anion Gap BUN Creatinine Est GFR (CKD-EPI 2020) Glucose Calcium Phosphorus Magnesium Iron TIBC Transferrin % Sat Total Bilirubin Conjugated Bilirubin AST ALT Alkaline Phosphatase Ammonia Troponin I Total Protein Albumin Vitamin B12 > 2000 H Folate > 20.0 H Random Vancomycin Hepatitis A IgM Ab Hep Bs Antigen Hep B Core Total Ab Hepatitis C Antibody HIV 1&2 Ag/Ab, 4th Gen Add-On Test Request 06/24/23 06/24/23 06/24/23 22:34 18:05 08:30 WBC 18.52 H RBC 3.83 L Hgb 9.2 L Hct 32.4 L MCV 85 D MCH 24.0 L MCHC 28.4 L RDW 21.0 H Plt Count 154 MPV 10.8 Immature Gran % See Differential Neutrophils % 82.0 Band Neutrophils % 5 Lymphocytes % 3.0 Atypical Lymphs % Monocytes % 9.0 Eosinophils % 0.0 Basophils % 0.0 Metamyelocytes % Myelocytes % 1 Promyelocytes % Other Cells % Nucleated RBC % 2.0 H Absolute Neutrophils 16.11 H Absolute Lymphocytes 0.56 L Absolute Monocytes 1.67 H Absolute Eosinophils 0.00 Absolute Basophils 0.00 RBC Morphology See Below Polychromasia Hypochromasia 1+ Poikilocytosis 2+ Basophilic Stippling Anisocytosis 2+ Microcytosis Macrocytosis Spherocytes Tear Drop Cells Ovalocytes Stomatocytes Torres-[place] Bodies Akbar Cells/Echinocytes Acanthocytes (Spur) Schistocytes PT 25.3 H INR 2.7 H APTT 37.9 H Fibrinogen Pending D-Dimer ABG Sample Site ABG pH ABG pCO2 ABG pO2 ABG HCO3 ABG Total CO2 ABG O2 Saturation ABG Base Excess VBG pH 6.92 L* 7.09 L* VBG pCO2 72 H* 39 L VBG pO2 34 53 VBG HCO3 15 L 12 L VBG Total CO2 16 L 12 L VBG O2 Saturation 34 74 VBG Base Excess -18 L -18 L VBG Lactate 11.7 H* Oxygen Liter Flow FiO2 Sodium 127 L 125 L Potassium 6.7 H* 7.8 H* Chloride 93 L 93 L Carbon Dioxide 17.9 L 10.8 L Anion Gap 16.1 H 21.2 H BUN 42 H 40 H Creatinine 2.8 H 2.3 H Est GFR (CKD-EPI 2020) 23.83 30.17 Glucose 187 H 98 Calcium 8.8 8.4 L Phosphorus Magnesium 2.0 Iron TIBC Transferrin % Sat Total Bilirubin 1.5 H Conjugated Bilirubin AST 7414 H ALT 2192 H Alkaline Phosphatase 112 Ammonia 71 H Troponin I < 50 Total Protein 6.2 L Albumin 2.5 L Vitamin B12 Folate Random Vancomycin Hepatitis A IgM Ab Cancelled Hep Bs Antigen Cancelled Hep B Core Total Ab Cancelled Hepatitis C Antibody Cancelled HIV 1&2 Ag/Ab, 4th Gen Add-On Test Request 06/24/23 05:35 WBC Cancelled RBC Cancelled Hgb Cancelled Hct Cancelled MCV Cancelled MCH Cancelled MCHC Cancelled RDW Cancelled Plt Count Cancelled MPV Cancelled Immature Gran % Cancelled Neutrophils % Cancelled Band Neutrophils % Cancelled Lymphocytes % Cancelled Atypical Lymphs % Cancelled Monocytes % Cancelled Eosinophils % Cancelled Basophils % Cancelled Metamyelocytes % Cancelled Myelocytes % Cancelled Promyelocytes % Cancelled Other Cells % Cancelled Nucleated RBC % Cancelled Absolute Neutrophils Cancelled Absolute Lymphocytes Cancelled Absolute Monocytes Cancelled Absolute Eosinophils Cancelled Absolute Basophils Cancelled RBC Morphology Cancelled Polychromasia Cancelled Hypochromasia Cancelled Poikilocytosis Cancelled Basophilic Stippling Cancelled Anisocytosis Cancelled Microcytosis Cancelled Macrocytosis Cancelled Spherocytes Cancelled Tear Drop Cells Cancelled Ovalocytes Cancelled Stomatocytes Cancelled Torres-[place] Bodies Cancelled Akbar Cells/Echinocytes Cancelled Acanthocytes (Spur) Cancelled Schistocytes Cancelled PT INR APTT Fibrinogen D-Dimer ABG Sample Site ABG pH ABG pCO2 ABG pO2 ABG HCO3 ABG Total CO2 ABG O2 Saturation ABG Base Excess VBG pH VBG pCO2 VBG pO2 VBG HCO3 VBG Total CO2 VBG O2 Saturation VBG Base Excess VBG Lactate Oxygen Liter Flow FiO2 Sodium Cancelled Potassium Cancelled Chloride Cancelled Carbon Dioxide Cancelled Anion Gap Cancelled BUN Cancelled Creatinine Cancelled Est GFR (CKD-EPI 2020) Cancelled Glucose Cancelled Calcium Cancelled Phosphorus Magnesium Iron Cancelled TIBC Cancelled Transferrin % Sat Cancelled Total Bilirubin Cancelled Conjugated Bilirubin AST Cancelled ALT Cancelled Alkaline Phosphatase Cancelled Ammonia Troponin I Total Protein Cancelled Albumin Cancelled Vitamin B12 Folate Random Vancomycin Hepatitis A IgM Ab Hep Bs Antigen Hep B Core Total Ab Hepatitis C Antibody HIV 1&2 Ag/Ab, 4th Gen Add-On Test Request 06/25/23 01:34 Blood Blood Culture - Pending 06/24/23 22:34 Blood Blood Culture - Pending Preliminary micro results at discharge 06/22/23 06:54 Blood Culture - Preliminary Blood NO GROWTH 72 HOURS 06/22/23 07:04 Blood Culture - Preliminary Blood NO GROWTH 72 HOURS 06/25/23 01:34 Blood Culture - Pending Blood 06/24/23 22:34 Blood Culture - Pending Blood [facility] All Active Problems (Updated 06/25/23 @ 10:12 by Love Zhou MD) Hepatitis C (Chronic) Per H&P: s/p tx. . He had an abc CT earlier this year which showed a normal liver. Normal anion gap metabolic acidosis (Acute) High anion gap metabolic acidosis (Acute) Lactic acidosis (Acute) Coagulopathy (Acute) Leukocytosis (Acute) Hyperphosphatemia (Acute) Hypocalcemia (Acute) Encephalopathy (Acute) Shock circulatory (Acute) Hyperkalemia (Acute) Acute renal failure (Acute) Acute liver failure (Acute) HFrEF (heart failure with reduced ejection fraction) (Acute) Anemia due to blood loss (Acute) Elevated liver enzymes (Acute) Acute posterior epistaxis (Acute) Acute anterior epistaxis (Acute) COPD (chronic obstructive pulmonary disease) (Chronic) Closed right clavicular fracture (Acute ~11/2021) Right shoulder pain (Acute) CHF (congestive heart failure) (Chronic) No-show for appointment (Acute) Left leg weakness (Acute) MCL sprain of right knee (Acute) Alcohol abuse (Chronic) Chest discomfort (Chronic) Acute on chronic diastolic heart failure (Acute) Bilateral pleural effusion (Acute) Falls (Acute) Pulmonary nodule (Acute) Acute respiratory failure with hypoxia (Acute) Pneumonia (Acute) Acute respiratory distress (Acute) Femur fracture, right (Acute) Fracture, rib (Acute) A-fib (Chronic) Laceration of digital nerve of left thumb (Acute) Gastritis and duodenitis (Acute) Medical History (Updated 06/25/23 @ 10:12 by Love Zhou MD) (HFpEF) heart failure with preserved ejection fraction Tobacco use Back pain Obesity Chronic pain Asthma Adjustment disorder Pain in left wrist Right hip pain Insomnia Medication monitoring encounter History of depression Opioid withdrawal Cataract Blurred vision Patella-femoral syndrome Trochanteric bursitis Knee pain, right Rib pain Hx of viral pneumonia Lumbar radiculopathy Cocaine abuse Lightheadedness Abdominal pain in male Positive urine drug screen Dyspnea on exertion Voiding dysfunction Clavicle pain Arthritis Neck fracture Per pt. states he broke his nevk 5-6 years ago. 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) As treatment for proximal humerus fx (DOI: 11/11/2021) History of surgery on wrist History of cataract surgery History of cataract surgery History of hand surgery Social History Smoking/Tobacco Use Status: Current every day Tobacco Type: cigarettes Smoking risk assessment performed?: Yes Alcohol Intake: current Alcohol Intake frequency: a few times a week Drug use: Never Substance use type: does not use and unknown Housing: apartment Current gender identity: male Do you feel safe at home: Yes Do you feel safe in your relationship?: Yes Additional Social history: lives alone Time Spent with Patient Time Spent with Patient: >85 minutes Time was spent: preparing to see the patient(eg.review tests), obtaining and/or reviewing separately otained hiistory, ordering medications,tests, procedures, referring, communicating with other health childcare center administrator, indepentently interpreting results and care coordination
[2023-06-25 10:29] LABS: Fibrinogen (Stat) (Littleton) 248 mg/dL (208-434)
[2023-06-25] MEDS: CLINDAMYCIN 900 MG/50 ML BAG 50 MG IVPB (10:32)
[2023-06-25] MEDS: Heparin 5,000 UNITS/ML VIAL 5000 UNITS SC (10:40)
--- NOTE | 2023-06-25 11:53 | CMDISCH_ITS ---
Date of service: 06/25/23 LACE Index Scoring Tool Questions: Length of Stay (in days): 4 - 6 Was the patient admitted via the E.D.?: Yes Comorbidities: Congestive Heart Failure, Chronic Pulmonary Disease and Liver or Renal Disease E.D. Visits: 2 Answers: Total Score: 14 Risk of Readmission: High Risk Care Management Discharge Plan Reason for Hospitalization: Epistaxis Discharge Plan: Derrick is discharged to the care of [facility] via [facility]. He will receive full level of care from the facility. He will follow up with his discharge plan of care as prescribed. Patient/Family Education Needs: Discussion of Ask Me Three self care needs upon discharge. SDOH Health Related Social Needs: No Data to Display
[2023-06-25 19:49] LABS: HIV-1/2 Ag & Ab Screen Negative (Negative)
== END 2023-06-25 12:15 | disposition short-term general hospital (02) | DRG 150 ==
LOC: ER 06-19 07:56 → MS 06-19 08:45 → ICU 06-24 18:12
PROVIDERS: Family Medicine; Nurse Practitioner Acute Care; Student in an Organized Health Care Education/Training Program; Admitting Provider Family Medicine; Emergency Provider Student in an Organized Health Care Education/Training Program; PCP Family Medicine; Visit Provider Family Medicine
DX: R04.0 Epistaxis (principal); A48.3 Toxic shock syndrome; I50.21 Acute systolic (congestive) heart failure; J69.0 Pneumonitis due to inhalation of food and vomit; K72.00 Acute and subacute hepatic failure without coma; I48.11 Longstanding persistent atrial fibrillation; N17.9 Acute kidney failure, unspecified; E87.1 Hypo-osmolality and hyponatremia; D68.9 Coagulation defect, unspecified; E87.29 Other acidosis; K76.82 Hepatic encephalopathy; J44.9 Chronic obstructive pulmonary disease, unspecified; R74.8 Abnormal levels of other serum enzymes; D50.0 Iron deficiency anemia secondary to blood loss (chronic); E87.5 Hyperkalemia; E83.51 Hypocalcemia; E83.39 Other disorders of phosphorus metabolism; D72.829 Elevated white blood cell count, unspecified; B18.2 Chronic viral hepatitis C; Z79.82 Long term (current) use of aspirin; F10.10 Alcohol abuse, uncomplicated; I11.0 Hypertensive heart disease with heart failure; F32.A Depression, unspecified; F17.210 Nicotine dependence, cigarettes, uncomplicated; Z96.612 Presence of left artificial shoulder joint; F14.90 Cocaine use, unspecified, uncomplicated; E16.2 Hypoglycemia, unspecified
CPT/HCPCS: 36573; 36620; 31500; 00123; 30903; 30905; 30906; 36415; 71045; 80048; 80053; 80076; 82805; 84145; 85027; 85384; 86704; 86709; 86803; 86850; 86900; 86901; 87040; 87340; 87389; 93308; 96374; 96375; 99291; 99292; 36600; 76700; 80202; 82140; 82607; 82746; 83540; 83550; 83605; 83735; 84100; 84484; 85014; 85018; 85025; 85379; 85610; 85730; 93005; 93010; 94002; 94003; 94760; 99223; 99232; 99233; 99239; J0612; J0690; J0692; J0737; J1250; J1644; J1720; J1815; J1885; J1940; J2060; J2270; J2405; J2704; J3372; J3430; J3490; J7060

== ENCOUNTER → 2023-06-25 10:04 | Outpatient (BNVA) | payer MEDICARE, MEDICAID, SELFPAY | PROVIDERS: PCP Family Medicine; Referring Provider Family Medicine; Visit Provider Student in an Organized Health Care Education/Training Program ==

== ENCOUNTER 2023-08-24 07:55 | Outpatient (CLI) | payer MEDICARE, MEDICAID, SELFPAY ==
--- NOTE | 2023-08-24 07:45 | RT.EKG_ITS ---
APPROVED REPORT Exam: Resting ECG Reason for Exam: cardiac evaluation Patient Location: O HR:91 bpm ECG Measurements Heart Rate 91 AXIS ND [id number] P [id number] QRSd 108 QRS 15 QT 378 T -11 QTc 466 Conclusion Atrial fibrillation...V-rate 78-113, irreg A-activity LVH with repolarization abnormalities
== END 2023-08-24 07:56 | disposition home or self-care (01) ==
LOC: DI.CARD 07:56
PROVIDERS: PCP Family Medicine; Visit Provider Internal Medicine Cardiovascular Disease
DX: I50.33 Acute on chronic diastolic (congestive) heart failure (principal); I48.11 Longstanding persistent atrial fibrillation
CPT/HCPCS: 93010

== ENCOUNTER → 2023-08-24 13:47 | Outpatient (BNVA) | payer MEDICARE, MEDICAID, SELFPAY | PROVIDERS: PCP Family Medicine; Referring Provider Family Medicine; Visit Provider Internal Medicine Cardiovascular Disease | DX: N18.9 Chronic kidney disease, unspecified (principal); I50.33 Acute on chronic diastolic (congestive) heart failure; I48.11 Longstanding persistent atrial fibrillation | CPT/HCPCS: 93005; 99214 ==

== ENCOUNTER 2023-08-27 18:29 | Outpatient (REF) | payer MEDICARE, MEDICAID, SELFPAY ==
[2023-08-27 18:34] LABS: Abs Immature Grans 0.04 10^3/uL (0.0-0.06); Absolute Basophil Count 0.12 10^3/uL (0.0-0.2); Absolute Eosinophil Count 0.27 10^3/uL (0.0-0.7); Absolute Lymphocyte Count 1.41 10^3/uL (1.2-3.4); Absolute Monocyte Count 0.56 10^3/uL (0.1-0.8); Absolute Neutrophil Count 6.11 10^3/uL (1.2-6.7); Basophils % 1.4 %; Eosinophils % 3.2 %; HCT 41.6 % (40.0-50.0); HGB 12.9 g/dL (13.5-17.5); Immature Grans % 0.5 %; Lymphocytes % 16.6 %; MCV 100 fL (80-95); MPV 10.3 fL (8.0-11.0); Monocytes % 6.6 %; Neutrophils % 71.7 %; Platelet Count 378 10^3/uL (130-400); RBC 4.16 10^6/uL (4.36-5.78); RDW 17.6 % (11.8-14.1); RDW-SD 64.3 fL; WBC 8.51 10^3/uL (4.4-10.8)
[2023-08-27 18:53] LABS: Hemoglobin A1C 5.2 % (<5.7)
[2023-08-27 19:18] LABS: Iron 127 ug/dL (65-175); Total Iron Binding Capacity 303 ug/dL (250-450); Transferrin Sat 42 % (20-55)
[2023-08-27 19:23] LABS: ALT 17 U/L (16-63); AST 21 U/L (15-37); Albumin 3.3 g/dL (3.4-5.0); Alkaline Phosphatase 77 U/L (46-116); Anion Gap 10.4 mmol/L (3-11); BUN 18 mg/dL (7-18); Bilirubin, Total 0.79 mg/dL (0.2-1.0); CO2 30.6 mmol/L (21.0-32.0); CREATININE 1.7 mg/dL (0.70-1.30); Calcium 9.2 mg/dL (8.5-10.1); Chloride 101 mmol/L (98-107); Estimated GFR 43.37 (mL/min/1.73m2); Ferritin 124 ng/mL (26-388); Glucose 121 mg/dL (74-106); Magnesium 1.7 mg/dL (1.8-2.4); Potassium 3.2 mmol/L (3.5-5.1); Sodium 142 mmol/L (136-145); TSH (W/Ref FT4) 8.36 uIU/mL (0.36-3.74); Total Protein 8.3 g/dL (6.4-8.2); Vitamin B12 1024 pg/mL (193-986); Vitamin D 25 Total 64.6 ng/mL (30-100)
[2023-08-27 19:24] LABS: Folate > 20.0 ng/mL (8.6-20.0)
[2023-08-27 20:09] LABS: FREE T4 0.83 ng/dL (0.76-1.46); NT-proBNP 3003 pg/mL (<300)
== END 2023-08-27 18:30 | disposition home or self-care (01) ==
LOC: LBN 18:29
PROVIDERS: PCP Family Medicine; Visit Provider Nurse Practitioner Gerontology
DX: G89.4 Chronic pain syndrome (principal); I13.0 Hypertensive heart and chronic kidney disease with heart failure and stage 1 through stage 4 chronic kidney disease, or unspecified chronic kidney disease; E83.42 Hypomagnesemia; D56.9 Thalassemia, unspecified; D51.9 Vitamin B12 deficiency anemia, unspecified; I11.9 Hypertensive heart disease without heart failure; E07.9 Disorder of thyroid, unspecified; R94.6 Abnormal results of thyroid function studies; R53.82 Chronic fatigue, unspecified; R73.09 Other abnormal glucose
CPT/HCPCS: 80053; 82306; 82607; 82728; 82746; 83036; 83540; 83550; 83735; 83880; 84439; 84443; 85025

== ENCOUNTER 2023-09-11 13:01 | Outpatient (REF) | payer MEDICARE, MEDICAID, SELFPAY ==
[2023-09-11 16:11] LABS: ALT 15 U/L (16-63); AST 15 U/L (15-37); Albumin 3.2 g/dL (3.4-5.0); Alkaline Phosphatase 81 U/L (46-116); Anion Gap 11.4 mmol/L (3-11); BUN 13 mg/dL (7-18); Bilirubin, Total 0.52 mg/dL (0.2-1.0); CO2 20.6 mmol/L (21.0-32.0); CREATININE 1.3 mg/dL (0.70-1.30); Calcium 9.2 mg/dL (8.5-10.1); Chloride 107 mmol/L (98-107); Estimated GFR 59.84 (mL/min/1.73m2); Glucose 141 mg/dL (74-106); Potassium 4.4 mmol/L (3.5-5.1); Sodium 139 mmol/L (136-145); TSH (W/Ref FT4) 6.63 uIU/mL (0.36-3.74); Total Protein 7.4 g/dL (6.4-8.2)
[2023-09-11 16:18] LABS: HCT 39.4 % (40.0-50.0); HGB 12.7 g/dL (13.5-17.5); MCH 31.1 pg (27.0-33.0); MCHC 32.2 % (32.0-36.0); MCV 96 fL (80-95); MPV 10.3 fL (8.0-11.0); Platelet Count 252 10^3/uL (130-400); RBC 4.09 10^6/uL (4.36-5.78); RDW 16.6 % (11.8-14.1); RDW-SD 57.8 fL; WBC 7.27 10^3/uL (4.4-10.8)
[2023-09-11 16:43] LABS: FREE T4 0.89 ng/dL (0.76-1.46)
== END 2023-09-11 13:02 | disposition home or self-care (01) ==
LOC: NCHCN 13:01
PROVIDERS: PCP Family Medicine; Visit Provider Family Medicine
DX: D64.9 Anemia, unspecified (principal); I48.91 Unspecified atrial fibrillation
CPT/HCPCS: 80053; 85027; 84439; 84443

== ENCOUNTER 2023-11-30 15:12 | Outpatient (REF) | payer MEDICARE, MEDICAID, SELFPAY ==
--- OUTSIDE RECORDS SUMMARY | 2023-11-30 15:17 | XMS_ITS | Encounter Summary ---
Author Organization [facility] Address [facility] [place] [address] Care Team Providers Care Loan Operations Specialist Name Role Phone Sherri Guzman MD Primary Care Provider [phone] Encounter Details Date Type Department Care Team (Latest Contact Info) Description 06/12/2016 2:05 PM EDT - 06/12/2016 11:59 PM EDT Hospital Encounter XRay at [address] [place] [address] Jared Bolaños MD [facility] [place] [address] Closed fracture of distal end of left radius with malunion, unspecified fracture morphology, subsequent encounter Discharge Disposition: Home Social History Tobacco Use Types Packs/Day Years Used Date Smoking Tobacco: Every Day Cigarettes Smokeless Tobacco: Never Alcohol Use Standard Drinks/Week Comments Yes 10 (1 standard drink = 0.6 oz pu re alcohol) social Sex and Gender Information Value Date Recorded Sex Assigned at Not on file Gender Identity Not on file Sexual Orientation Not on file documented as of this encounter Medications at Time of Discharge Medication Sig Dispensed Refills Start Date End Date HYDROcodone-acetaminoph en (NORCO) 7.5-325 mg Tablet Take 1 tablet by mouth 2 times daily as needed. 0 03/21/2016 zolpidem (AMBIEN CR) 12.5 mg Tablet, Multiphasic Release Take 1 tablet by mouth nightly as needed for Insomnia. 0 03/21/2016 gabapentin (NEURONTIN) 800 mg Tablet Take 800 mg by mouth 3 times daily. propranolol (INDERAL LA) 160 mg Capsule,Sustained Action 24 hr Take 160 mg by mouth 2 times daily. nadolol (CORGARD) 40 mg Tablet Take 40 mg by mouth 3 times daily. Reported on 06/12/2016 topiramate (TOPAMAX) 50 mg Tablet Take 50 mg by mouth 2 times daily. amLODIPine (NORVASC) 10 mg Tablet Take 10 mg by mouth daily. citalopram (CELEXA) 20 mg Tablet Take 20 mg by mouth daily. hydroCHLOROthiazide (HYDRODIURIL) 25 mg Tablet Take 25 mg by mouth daily. triamcinolone (KENALOG) 0.1 % Ointment Apply topically 2 times daily. pantoprazole (PROTONIX) 40 mg Tablet, Delayed Release (E.C.) Take 1 tablet by mouth daily. 0 11/25/2015 VITAMIN B-1 100 mg Tablet Take 1 tablet by mouth daily. 0 11/10/2015 beclomethasone (QVAR) 40 mcg/actuation Aerosol Inhale 2 puffs into the lungs 2 times daily. 1 Inhaler 3 12/16/2014 cyclobenzaprine (FLEXERIL) 10 mg Tablet Take 1 tablet by mouth 3 times daily as needed for Muscle spasms. 30 tablet 3 12/16/2014 COMBIVENT RESPIMAT 20-100 mcg/actuation Mist Inhale 2 puffs into the lungs every 4 hours as needed. 0 08/20/2014 buPROPion (WELLBUTRIN SR) 150 mg Tablet Sustained Release Take 150 mg by mouth 2 times daily. lidocaine (XYLOCAINE) 5 % Ointment APPLY TO AFFECTED AREA FOUR TIMES DAILY 0 11/23/2015 08/14/2016 documented as of this encounter Plan of Treatment Not on file documented as of this encounter Procedures Procedure Name Priority Date/Time Associated Diagnosis Comments XR WRIST 3 VIEWS LEFT Routine 06/12/2016 2:13 PM EDT Closed fracture of distal end of left radius with malunion, unspecified fracture morphology, subsequent encounter documented in this encounter Results * XR Wrist Complete Min 3 views Left (Generic) (06/12/2016 2:13 PM EDT) Anatomical Region Laterality Modality Left Digital Radiogra phy Impressions 06/12/2016 4:55 PM EDT Progressive interval healing of distal radial osteotomy and bone grafting site, with unchanged alignment and no evidence of fixation hardware complication. Narrative 06/12/2016 4:55 PM EDT EXAMINATION: XR WRIST COMPLETE MIN 3 VIEWS LEFT (GENERIC) CLINICAL HISTORY: Left distal radius osteotomy on 03/14/2016; assess healing TECHNIQUE: Frontal, lateral, and oblique left wrist radiographs were obtained. COMPARISON: Left wrist radiographs ranging from 11/08/2013 through 05/01/2016 FINDINGS: There has been prior transverse osteotomy through the left radial metaphysis with bone grafting and placement of a dorsal fixation [id number] construct that appears intact without evidence of loosening. When compared with 05/01/2016, the osteotomy line is less distinct, compatible with progressive interval healing. Alignment is unchanged. Procedure Note Hilda Encinas MD - 06/12/2016 EXAMINATION: XR WRIST COMPLETE MIN 3 VIEWS LEFT (GENERIC) CLINICAL HISTORY: Left distal radius osteotomy on 03/14/2016; assesshealing TECHNIQUE: Frontal, lateral, and oblique left wrist radiographs wereobtained. COMPARISON: Left wrist radiographs ranging from 11/08/2013 through05/01/2016 FINDINGS: There has been prior transverse osteotomy through the left radialmetaphysis with bone grafting and placement of a dorsal fixation [id number] that appears intact without evidence of loosening. When compared with05/01/2016, the osteotomy line is less distinct, compatible with progressiveinterval healing. Alignment is unchanged. IMPRESSION Progressive interval healing of distal radial osteotomy and bone graftingsite, with unchanged alignment and no evidence of fixation hardwarecomplication. Jared Bolaños MD IMG DX ORDERABLES documented in this encounter Visit Diagnoses Diagnosis Closed fracture of distal end of left radius with malunion, unspecified fracture morphology, subsequent encounter documented in this encounter Care Teams Loan Operations Specialist Relationship Specialty Start Date End Date Sherri Guzman MD [address] [place] [address] PCP - General Family Medicine 12/21/15 documented as of this encounter
--- OUTSIDE RECORDS SUMMARY | 2023-11-30 15:17 | XMS_ITS | Encounter Summary ---
Author Organization [facility] [place] [address] Care Team Providers Care Canal Superintendent Name Role Phone Sherri Guzman MD Primary Care Provider [phone] Reason for Visit * Auth/Cert (Routine) Specialty Diagnoses / Procedures Referred By Contscarlett t Referred To Contact Diagnoses RESPIRATORY ARREST Procedures [place] [employer] [facility] Referral ID Status Reason Start Date Expiration Date Visits Re quested Visits Authorized [id number] 1 1 Encounter Details Date Type Department Care Team (Latest Contact Info) Description 06/25/2023 11:50 AM EDT - 06/25/2023 11:59 PM EDT Hospital Encounter [facility] at [address] [address] Saul Schaffer MD [facility] [place] [address] Discharge Disposition: Home Social History Tobacco Use [...] Sig Dispensed Refills Start Date End Date HYDROcodone-acetaminophe n (NORCO) 7.5-325 mg Tablet Take 1 tablet [...] 150 mg by mouth 2 times daily. documented as of this encounter Plan of Treatment Not on file documented as of this encounter Visit Diagnoses Not on filedocumented in this encounter Care Teams Canal Superintendent Relationship Specialty Start Date End Date Sherri Guzman MD [address] [place] [address] PCP - General Family Medicine 12/21/15 documented as of this encounter
--- OUTSIDE RECORDS SUMMARY | 2023-11-30 15:17 | XMS_ITS | Data Portability ---
Author Organization [facility] [place] [address] Care Team Providers Care Tube Pusher Name Role Phone SHERRI RIVAS Primary Care Provider LOTTIE MARY Orthopedic Surgeon Assessment No assessment recorded. Plan of Treatment Reminders Order Date Submit Date Provider Last Modified By Organization Details Last Modified Time Details Appointments Follow Up 2023 11:40A M Not available Not available Not available Follow Up 2023 01:00P M Not available Not available Not available Lab TSH, serum, reflex free T4 2023 024 [facility] (Registration), [address] [place] [address] [place], [address], 05/08/2023 13:14:47 C-reac tive protei n, quanti tative , serum or plasma 2023 024 [facility] (Registration), [address] [place] [address] [place], [address], 05/08/2023 13:14:47 ESR (eryth rocyte sedime ntatio n rate), blood 2023 024 [facility] (Registration), [address] [place] [address] [place], [address], 05/08/2023 13:14:47 CMP, serum or plasma 2023 024 [facility] (Registration), [address] [place] [address] [place], [address], 05/08/2023 16:10:11 hemogl obin (Hb), finger stick, blood 2023 024 [facility], [address] [place] [address], [place], [address], 05/08/2023 13:14:47 iron, serum 2023 024 [facility] (Registration), [address] [place] [address] [place], [address], 05/08/2023 15:43:06 ferrit in, serum or plasma 2023 024 [facility] (Registration), [address] [place] [address] [place], [address], 05/08/2023 13:14:47 CBC 2023 024 [facility] (Registration), [address] [place] [address] [place], [address], 05/08/2023 15:11:00 CMP, serum or plasma 2023 024 [facility] (Registration), [address] [place] [address] [place], [address], 09/11/2023 16:22:03 TSH, serum, reflex free T4 2023 024 [facility] (Registration), [address] [place] [address] [place], [address], 09/11/2023 14:19:49 CBC 2023 024 [facility] (Registration), [address] [place] [address] [place], [address], 09/11/2023 16:41:02 Referral orthop edlaron samo n referr al - progre ssive rt knee pain/k nown DJD 2023 024 [email or web address] Qamar Preston MD, [address], [place], [address], 11/06/2023 13:14:59 otolar yngolo gist referr al 2023 TAMANNA [facility], [address] [place] [address] Dr, [place], [address], 09/12/2023 10:01:08 Procedures None record ed. Surgeries None record ed. Imaging None record ed. Medication Orders Vitami n D3 50 mcg (2,000 unit) capsul e 2023 [facility], [address] [place] [address], [id number], 08/22/2023 14:23:37 zolpid em 10 mg tablet 2023 024 aminahbilkayla [facility], [address] [place] [address], [id number], 08/22/2023 14:23:50 hydroc odone 10 mg-jayleen tamino phen 325 mg tablet 2023 024 [facility], [address] [place] [address], [id number], 05/08/2023 11:42:33 hydroc odone 10 mg-jayleen tamino phen 325 mg tablet 2023 024 [facility], [address] [place] [address], [id number], 05/08/2023 11:42:33 hydroc odone 10 mg-jayleen tamino phen 325 mg tablet 2023 024 [facility], [address] [place] [address], [id number], 09/11/2023 11:23:24 topira mate 50 mg tablet 2023 024 [facility], [address] [place], [address], 09/11/2023 11:23:22 Xarelt o 15 mg tablet 2023 [facility], [address] [place], [address], 11/30/2023 11:59:25 tamsul osin 0.4 mg capsul e 2023 [facility], [address] [place], [address], 09/11/2023 11:23:14 Patient TargetsNo targets recorded. 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 fo r Recurrent bleeding of nose h/o recurrent, severe, epistaxis with most recent rhino packing leading to sepsis Referring Physician: Sherri Rivas [facility], Encounter Date: 09/11/2023 Results Created Date Observation Date Name Description Value Unit Range Abnormal Flag Note LastModifiedBy Organization Detail LastModifiedTime 05/08/1905/08/2023 ESR ESR 17 mm/HR 0-20 normal Not Available [address] [facility] [place], [address] 05/08/2023 15:08:05 05/08/19 24 05/08/2023 COMPL ETE BLOOD COUNT NO DIFF WBC 7.69 10_3/ uL 4.4-10 .8 normal Not Available [address] [place], [address] 05/08/2023 15:11:00 05/08/19 24 05/08/2023 COMPL ETE BLOOD COUNT NO DIFF RBC 4.27 10_6/ uL 4.36-5 .78 low Not Available [address] [place], [address] 05/08/2023 15:11:00 05/08/19 24 05/08/2023 COMPL ETE BLOOD COUNT NO DIFF HGB 10.6 g/dL 13.5-1 7.5 low Not Available [address] [place], [address] 05/08/2023 15:11:00 05/08/19 24 05/08/2023 COMPL ETE BLOOD COUNT NO DIFF HCT 34.2 % 40.0-5 0.0 low Not Available [address] [place], [address] 05/08/2023 15:11:00 05/08/19 24 05/08/2023 COMPL ETE BLOOD COUNT NO DIFF MCV 80 fL 80-95 normal Not Available Caro [address] [place], [address] 05/08/2023 15:11:00 05/08/19 24 05/08/2023 COMPL ETE BLOOD COUNT NO DIFF MCH 24.8 pg 27.0-3 3.0 low Not Available [address] [place], [address] 05/08/2023 15:11:00 05/08/19 24 05/08/2023 COMPL ETE BLOOD COUNT NO DIFF MCHC 31.0 % 32.0-3 6.0 low Not Available [address] [place], [address] 05/08/2023 15:11:00 05/08/19 24 05/08/2023 COMPL ETE BLOOD COUNT NO DIFF RDW 17.2 % 11.8-1 4.1 high Not Available [address] [place], [address] 05/08/2023 15:11:00 05/08/19 24 05/08/2023 COMPL ETE BLOOD COUNT NO DIFF platelet count 258 10_3/ uL 130-40 0 normal Not Available [address] [place], [address] 05/08/2023 15:11:00 05/08/19 24 05/08/2023 COMPL ETE BLOOD COUNT NO DIFF MPV 11.3 fL 8.0-11 .0 high Not Available [address] [place], [address] 05/08/2023 15:11:00 05/08/19 24 05/08/2023 IRON iron 15 ug/dL 65-175 low Not Available [address] [place], [address] 05/08/2023 15:43:06 05/08/19 24 05/08/2023 COMPR EHENS RIA METAB OLIC PANEL calcium 9.4 mg/dL 8.5-10 .1 normal Not Available [address] [place], [address] 05/08/2023 16:10:10 05/08/19 24 05/08/2023 COMPR EHENS RIA METAB OLIC PANEL glucose 139 mg/dL 74-106 high Not Available [address] [place], [address] 05/08/2023 16:10:10 05/08/19 24 05/08/2023 COMPR EHENS RIA METAB OLIC PANEL BUN 21 mg/dL 7-18 high Not Available [address] [place], [address] 05/08/2023 16:10:10 05/08/19 24 05/08/2023 COMPR EHENS RIA METAB OLIC PANEL creatinine 1.6 mg/dL 0.70-1 .30 high Not Available [address] [place], [address] 05/08/2023 16:10:10 05/08/19 24 05/08/2023 COMPR EHENS RIA METAB OLIC PANEL estimated GFR 46.93 mL/min /1.73m 2 The eGFR is calcu lated from a serum creat inine using the CKD-E PI 2020 equat ion. Other varia bles requi red for the equat ion are gende r and age; this equat ion does not inclu de a race coeff icien t. This equat ion has simil ar overa ll perfo rmanc e to previ ous equat ions excep t value s may diffe r, in parti cular , in patie nts with highe r value s of eGFR and young er-ag ed adult s. Not Available [address] [place], [address] 05/08/2023 16:10:10 05/08/19 24 05/08/2023 COMPR EHENS RIA METAB OLIC PANEL total protein 7.5 g/dL 6.4-8. 2 normal Not Available [address] [place], [address] 05/08/2023 16:10:10 05/08/19 24 05/08/2023 COMPR EHENS RIA METAB OLIC PANEL albumin 3.4 g/dL 3.4-5. 0 normal Not Available [address] [place], [address] 05/08/2023 16:10:10 05/08/19 24 05/08/2023 COMPR EHENS RIA METAB OLIC PANEL bilirubin, total 0.6 mg/dL 0.2-1. 0 normal Not Available [address] [place], [address] 05/08/2023 16:10:10 05/08/19 24 05/08/2023 COMPR EHENS RIA METAB OLIC PANEL alk phos 101 U/L 46-116 normal Not Available [address] [place], [address] 05/08/2023 16:10:10 05/08/19 24 05/08/2023 COMPR EHENS RIA METAB OLIC PANEL sodium 134 mmol/ L 136-14 5 low Not Available [address] [place], [address] 05/08/2023 16:10:10 05/08/19 24 05/08/2023 COMPR EHENS RIA METAB OLIC PANEL potassium 4.9 mmol/ L 3.5-5. 1 normal Not Available [address] [place], [address] 05/08/2023 16:10:10 05/08/19 24 05/08/2023 COMPR EHENS RIA METAB OLIC PANEL chloride 100 mmol/ L 98-107 normal Not Available [address] [place], [address] 05/08/2023 16:10:10 05/08/19 24 05/08/2023 COMPR EHENS RIA METAB OLIC PANEL CO2 25.0 mmol/ L 21.0-3 2.0 normal Not Available [address] [place], [address] 05/08/2023 16:10:10 05/08/19 24 05/08/2023 COMPR EHENS RIA METAB OLIC PANEL anion gap 9.0 mmol/ L 3-11 normal Not Available [address] [place], [address] 05/08/2023 16:10:10 05/08/19 24 05/08/2023 COMPR EHENS RIA METAB OLIC PANEL AST 26 U/L 15-37 normal Not Available [address] [place], [address] 05/08/2023 16:10:10 05/08/19 24 05/08/2023 COMPR EHENS RIA METAB OLIC PANEL ALT 22 U/L 16-63 normal Not Available [address] [place], [address] 05/08/2023 16:10:10 05/08/19 24 05/08/2023 CECI TIN ferritin 25 NG/mL 26-388 low Not Available [address] [place], [address] 05/08/2023 16:10:11 05/08/19 24 05/08/2023 TSH (W/RE F FT4) TSH (w/ref FT4) 6.74 uIU/m L 0.36-3 .74 high Not Available [address] [place], [address] 05/08/2023 16:10:12 05/08/19 24 05/08/2023 FREE T4 free T4 1.05 NG/dL 0.76-1 .46 normal Not Available [address] [place], [address] 05/08/2023 16:10:13 05/08/19 24 05/08/2023 C-YFN CTIVE PROTE IN C-reactive protein 1.79 mg/dL <or=0. 5 high Not Available [address] [place], [address] 05/08/2023 16:10:13 05/08/19 24 05/08/2023 hemog lobin (Hb), finge rstic k, blood HGB 11.1 g/dL Not Available [address], [place], [address], 05/08/2023 12:01:13 05/09/19 24 05/09/2023 COMPL ETE BLOOD COUNT W/DIF F WBC 7.66 10_3/ uL 4.4-10 .8 normal Not Available [address] [place], [address] 05/09/2023 10:41:42 05/09/19 24 05/09/2023 COMPL ETE BLOOD COUNT W/DIF F RBC 4.71 10_6/ uL 4.36-5 .78 normal Not Available [address] [place], [address] 05/09/2023 10:41:42 05/09/19 24 05/09/2023 COMPL ETE BLOOD COUNT W/DIF F HGB 11.5 g/dL 13.5-1 7.5 low Not Available [address] [place], [address] 05/09/2023 10:41:42 05/09/19 24 05/09/2023 COMPL ETE BLOOD COUNT W/DIF F HCT 37.3 % 40.0-5 0.0 low Not Available [address] [place], [address] 05/09/2023 10:41:42 05/09/19 24 05/09/2023 COMPL ETE BLOOD COUNT W/DIF F MCV 79 fL 80-95 low Not Available Caro gutierres [address] [place], [address] 05/09/2023 10:41:42 05/09/19 24 05/09/2023 COMPL ETE BLOOD COUNT W/DIF F MCH 24.4 pg 27.0-3 3.0 low Not Available [address] [place], [address] 05/09/2023 10:41:42 05/09/19 24 05/09/2023 COMPL ETE BLOOD COUNT W/DIF F MCHC 30.8 % 32.0-3 6.0 low Not Available [address] [place], [address] 05/09/2023 10:41:42 05/09/19 24 05/09/2023 COMPL ETE BLOOD COUNT W/DIF F RDW 17.2 % 11.8-1 4.1 high Not Available [address] [place], [address] 05/09/2023 10:41:42 05/09/19 24 05/09/2023 COMPL ETE BLOOD COUNT W/DIF F platelet count 270 10_3/ uL 130-40 0 normal Not Available [address] [place], [address] 05/09/2023 10:41:42 05/09/19 24 05/09/2023 COMPL ETE BLOOD COUNT W/DIF F MPV 9.6 fL 8.0-11 .0 normal Not Available [address] [place], [address] 05/09/2023 10:41:42 05/09/19 24 05/09/2023 COMPL ETE BLOOD COUNT W/DIF F neutrophils % 71.9 Not Available [address] [place], [address] 05/09/2023 10:41:42 05/09/19 24 05/09/2023 COMPL ETE BLOOD COUNT W/DIF F lymphocytes % 11.9 Not Available [address] [place], [address] 05/09/2023 10:41:42 05/09/19 24 05/09/2023 COMPL ETE BLOOD COUNT W/DIF F monocytes % 11.2 Not Available [address] [place], [address] 05/09/2023 10:41:42 05/09/19 24 05/09/2023 COMPL ETE BLOOD COUNT W/DIF F eosinophils % 3.3 Not Available [address] [place], [address] 05/09/2023 10:41:42 05/09/19 24 05/09/2023 COMPL ETE BLOOD COUNT W/DIF F basophils % 1.3 Not Available [address] [place], [address] 05/09/2023 10:41:42 05/09/19 24 05/09/2023 COMPL ETE BLOOD COUNT W/DIF F immature grans % 0.4 Not Available [address] [place], [address] 05/09/2023 10:41:42 05/09/19 24 05/09/2023 COMPL ETE BLOOD COUNT W/DIF F nucleated RBC 0.0 % 0.0-0. 3 normal Not Available [address] [place], [address] 05/09/2023 10:41:42 05/09/19 24 05/09/2023 COMPL ETE BLOOD COUNT W/DIF F absolute neutrophil count 5.51 10_3/ uL 1.2-6. 7 normal Not Available [address] [place], [address] 05/09/2023 10:41:42 05/09/19 24 05/09/2023 COMPL ETE BLOOD COUNT W/DIF F absolute lymphocyte count 0.91 10_3/ uL 1.2-3. 4 low Not Available [address] [place], [address] 05/09/2023 10:41:42 05/09/19 24 05/09/2023 COMPL ETE BLOOD COUNT W/DIF F absolute monocyte count 0.86 10_3/ uL 0.1-0. 8 high Not Available [address] [place], [address] 05/09/2023 10:41:42 05/09/19 24 05/09/2023 COMPL ETE BLOOD COUNT W/DIF F absolute eosinophil count 0.25 10_3/ uL 0.0-0. 7 normal Not Available [address] [place], [address] 05/09/2023 10:41:42 05/09/19 24 05/09/2023 COMPL ETE BLOOD COUNT W/DIF F absolute basophil count 0.10 10_3/ uL 0.0-0. 2 normal Not Available [address] [place], [address] 05/09/2023 10:41:42 05/09/19 24 05/09/2023 PROTH ROMBI N TIME prothrombin time 12.4 sec 9.1-11 .1 high Not Available [address] [place], [address] 05/09/2023 10:54:42 05/09/19 24 05/09/2023 PROTH ROMBI N TIME INR 1.3 0.9-1. 1 high Recom martha d INR thera peuti c range s for orall y admin ister ed drugs are as follo ws: -Truman dard Inten sity 2.0 to 3.0 -High er Inten sity 3.0 to 4.5 Not Available [address] [place], [address] 05/09/2023 10:54:42 06/18/19 24 06/18/2023 PROTH ROMBI N TIME prothrombin time 13.3 sec 9.1-11 .1 high Not Available [address] [place], [address] 06/18/2023 23:51:54 06/18/19 24 06/18/2023 PROTH ROMBI N TIME INR 1.4 0.9-1. 1 high Recom martha d INR thera peuti c range s for orall y admin ister ed drugs are as follo ws: -Truman dard Inten sity 2.0 to 3.0 -High er Inten sity 3.0 to 4.5 Not Available [address] [place], [address] 06/18/2023 23:51:54 06/18/19 24 06/18/2023 PTT ACTIV ATED PTT activated 30.1 sec 23.6-3 2.8 normal Hepar in Thera peuti c Range for PTT = 52-84 secon ds New Hepar in Thera peuti c Range 04/10 Not Available [address] [place], [address] 06/18/2023 23:51:54 06/18/19 24 06/18/2023 COMPL ETE BLOOD COUNT W/DIF F WBC 5.99 10_3/ uL 4.4-10 .8 normal Not Available [address] [place], [address] 06/18/2023 23:55:51 06/18/19 24 06/18/2023 COMPL ETE BLOOD COUNT W/DIF F RBC 4.55 10_6/ uL 4.36-5 .78 normal Not Available [address] [place], [address] 06/18/2023 23:55:51 06/18/19 24 06/18/2023 COMPL ETE BLOOD COUNT W/DIF F HGB 11.0 g/dL 13.5-1 7.5 low Not Available [address] [place], [address] 06/18/2023 23:55:51 06/18/19 24 06/18/2023 COMPL ETE BLOOD COUNT W/DIF F HCT 34.3 % 40.0-5 0.0 low Not Available [address] [place], [address] 06/18/2023 23:55:51 06/18/19 24 06/18/2023 COMPL ETE BLOOD COUNT W/DIF F MCV 75 fL 80-95 low Not Available Caro gutierres [address] [place], [address] 06/18/2023 23:55:51 06/18/19 24 06/18/2023 COMPL ETE BLOOD COUNT W/DIF F MCH 24.2 pg 27.0-3 3.0 low Not Available [address] [place], [address] 06/18/2023 23:55:51 06/18/19 24 06/18/2023 COMPL ETE BLOOD COUNT W/DIF F MCHC 32.1 % 32.0-3 6.0 normal Not Available [address] [place], [address] 06/18/2023 23:55:51 06/18/19 24 06/18/2023 COMPL ETE BLOOD COUNT W/DIF F RDW 20.3 % 11.8-1 4.1 high Not Available [address] [place], [address] 06/18/2023 23:55:51 06/18/19 24 06/18/2023 COMPL ETE BLOOD COUNT W/DIF F platelet count 249 10_3/ uL 130-40 0 normal Not Available [address] [place], [address] 06/18/2023 23:55:51 06/18/19 24 06/18/2023 COMPL ETE BLOOD COUNT W/DIF F MPV 9.7 fL 8.0-11 .0 normal Not Available [address] [place], [address] 06/18/2023 23:55:51 06/18/19 24 06/18/2023 COMPL ETE BLOOD COUNT W/DIF F neutrophils % 45.6 Not Available [address] [place], [address] 06/18/2023 23:55:51 06/18/19 24 06/18/2023 COMPL ETE BLOOD COUNT W/DIF F lymphocytes % 33.4 Not Available [address] [place], [address] 06/18/2023 23:55:51 06/18/19 24 06/18/2023 COMPL ETE BLOOD COUNT W/DIF F monocytes % 14.5 Not Available [address] [place], [address] 06/18/2023 23:55:51 06/18/19 24 06/18/2023 COMPL ETE BLOOD COUNT W/DIF F eosinophils % 5.2 Not Available [address] [place], [address] 06/18/2023 23:55:51 06/18/19 24 06/18/2023 COMPL ETE BLOOD COUNT W/DIF F basophils % 1.0 Not Available [address] [place], [address] 06/18/2023 23:55:51 06/18/19 24 06/18/2023 COMPL ETE BLOOD COUNT W/DIF F immature grans % 0.3 Not Available [address] [place], [address] 06/18/2023 23:55:51 06/18/19 24 06/18/2023 COMPL ETE BLOOD COUNT W/DIF F nucleated RBC 0.0 % 0.0-0. 3 normal Not Available [address] [place], [address] 06/18/2023 23:55:51 06/18/19 24 06/18/2023 COMPL ETE BLOOD COUNT W/DIF F absolute neutrophil count 2.73 10_3/ uL 1.2-6. 7 normal Not Available [address] [place], [address] 06/18/2023 23:55:51 06/18/19 24 06/18/2023 COMPL ETE BLOOD COUNT W/DIF F absolute lymphocyte count 2.00 10_3/ uL 1.2-3. 4 normal Not Available [address] [place], [address] 06/18/2023 23:55:51 06/18/19 24 06/18/2023 COMPL ETE BLOOD COUNT W/DIF F absolute monocyte count 0.87 10_3/ uL 0.1-0. 8 high Not Available [address] [place], [address] 06/18/2023 23:55:51 06/18/19 24 06/18/2023 COMPL ETE BLOOD COUNT W/DIF F absolute eosinophil count 0.31 10_3/ uL 0.0-0. 7 normal Not Available [address] [place], [address] 06/18/2023 23:55:51 06/18/19 24 06/18/2023 COMPL ETE BLOOD COUNT W/DIF F absolute basophil count 0.06 10_3/ uL 0.0-0. 2 normal Not Available [address] [place], [address] 06/18/2023 23:55:51 06/18/19 24 06/18/2023 COMPL ETE BLOOD COUNT W/DIF F diff comment RBC Morph Review ed Not Available [address] [place], [address] 06/18/2023 23:55:51 06/18/19 24 06/18/2023 COMPL ETE BLOOD COUNT W/DIF F RBC morphology See Below Not Available [address] [place], [address] 06/18/2023 23:55:51 06/18/19 24 06/18/2023 COMPL ETE BLOOD COUNT W/DIF F anisocytosis 2+ Not Available [address] [place], [address] 06/18/2023 23:55:51 06/18/19 24 06/18/2023 COMPL ETE BLOOD COUNT W/DIF F polychromasi a Presen t Not Available [address] [place], [address] 06/18/2023 23:55:51 06/18/19 24 06/18/2023 COMPL ETE BLOOD COUNT W/DIF F poikilocytes 2+ INCLU ELISSA OVALO CYTES AND ECHIN OCYTE S. Not Available [address] [place], [address] 06/18/2023 23:55:51 06/18/19 24 06/19/2023 G B A Positi ve Not Available [address] [place], [address] 06/19/2023 01:01:55 06/18/19 24 06/19/2023 G abs NEGATI VE Not Available [address] [place], [address] 06/19/2023 01:01:55 06/19/19 24 06/19/2023 COMPL ETE BLOOD COUNT W/DIF F WBC 8.67 10_3/ uL 4.4-10 .8 normal Not Available [address] [place], [address] 06/19/2023 06:51:48 06/19/19 24 06/19/2023 COMPL ETE BLOOD COUNT W/DIF F RBC 4.45 10_6/ uL 4.36-5 .78 normal Not Available [address] [place], [address] 06/19/2023 06:51:48 06/19/19 24 06/19/2023 COMPL ETE BLOOD COUNT W/DIF F HGB 10.8 g/dL 13.5-1 7.5 low Not Available [address] [place], [address] 06/19/2023 06:51:48 06/19/19 24 06/19/2023 COMPL ETE BLOOD COUNT W/DIF F HCT 34.2 % 40.0-5 0.0 low Not Available [address] [place], [address] 06/19/2023 06:51:48 06/19/19 24 06/19/2023 COMPL ETE BLOOD COUNT W/DIF F MCV 77 fL 80-95 low Not Available [address] [place], [address] 06/19/2023 06:51:48 06/19/19 24 06/19/2023 COMPL ETE BLOOD COUNT W/DIF F MCH 24.3 pg 27.0-3 3.0 low Not Available [address] [place], [address] 06/19/2023 06:51:48 06/19/19 24 06/19/2023 COMPL ETE BLOOD COUNT W/DIF F MCHC 31.6 % 32.0-3 6.0 low Not Available [address] [place], [address] 06/19/2023 06:51:48 06/19/19 24 06/19/2023 COMPL ETE BLOOD COUNT W/DIF F RDW 20.1 % 11.8-1 4.1 high Not Available [address] [place], [address] 06/19/2023 06:51:48 06/19/19 24 06/19/2023 COMPL ETE BLOOD COUNT W/DIF F platelet count 253 10_3/ uL 130-40 0 normal Not Available [address] [place], [address] 06/19/2023 06:51:48 06/19/19 24 06/19/2023 COMPL ETE BLOOD COUNT W/DIF F MPV 9.6 fL 8.0-11 .0 normal Not Available [address] [place], [address] 06/19/2023 06:51:48 06/19/19 24 06/19/2023 COMPL ETE BLOOD COUNT W/DIF F neutrophils % 67.2 Not Available [address] [place], [address] 06/19/2023 06:51:48 06/19/19 24 06/19/2023 COMPL ETE BLOOD COUNT W/DIF F lymphocytes % 16.4 Not Available [address] [place], [address] 06/19/2023 06:51:48 06/19/19 24 06/19/2023 COMPL ETE BLOOD COUNT W/DIF F monocytes % 12.9 Not Available [address] [place], [address] 06/19/2023 06:51:48 06/19/19 24 06/19/2023 COMPL ETE BLOOD COUNT W/DIF F eosinophils % 2.4 Not Available [address] [place], [address] 06/19/2023 06:51:48 06/19/19 24 06/19/2023 COMPL ETE BLOOD COUNT W/DIF F basophils % 0.9 Not Available [address] [place], [address] 06/19/2023 06:51:48 06/19/19 24 06/19/2023 COMPL ETE BLOOD COUNT W/DIF F immature grans % 0.2 Not Available Aramis rich [address] [place], [address] 06/19/2023 06:51:48 06/19/19 24 06/19/2023 COMPL ETE BLOOD COUNT W/DIF F nucleated RBC 0.0 % 0.0-0. 3 normal Not Available [address] [place], [address] 06/19/2023 06:51:48 06/19/19 24 06/19/2023 COMPL ETE BLOOD COUNT W/DIF F absolute neutrophil count 5.82 10_3/ uL 1.2-6. 7 normal Not Available [address] [place], [address] 06/19/2023 06:51:48 06/19/19 24 06/19/2023 COMPL ETE BLOOD COUNT W/DIF F absolute lymphocyte count 1.42 10_3/ uL 1.2-3. 4 normal Not Available [address] [place], [address] 06/19/2023 06:51:48 06/19/19 24 06/19/2023 COMPL ETE BLOOD COUNT W/DIF F absolute monocyte count 1.12 10_3/ uL 0.1-0. 8 high Not Available [address] [place], [address] 06/19/2023 06:51:48 06/19/19 24 06/19/2023 COMPL ETE BLOOD COUNT W/DIF F absolute eosinophil count 0.21 10_3/ uL 0.0-0. 7 normal Not Available [address] [place], [address] 06/19/2023 06:51:48 06/19/19 24 06/19/2023 COMPL ETE BLOOD COUNT W/DIF F absolute basophil count 0.08 10_3/ uL 0.0-0. 2 normal Not Available [address] [place], [address] 06/19/2023 06:51:48 06/20/19 24 06/20/2023 COMPL ETE BLOOD COUNT NO DIFF WBC 9.55 10_3/ uL 4.4-10 .8 normal Not Available [address] [place], [address] 06/20/2023 06:44:09 06/20/19 24 06/20/2023 COMPL ETE BLOOD COUNT NO DIFF RBC 4.27 10_6/ uL 4.36-5 .78 low Not Available [address] [place], [address] 06/20/2023 06:44:09 06/20/19 24 06/20/2023 COMPL ETE BLOOD COUNT NO DIFF HGB 10.4 g/dL 13.5-1 7.5 low Not Available [address] [place], [address] 06/20/2023 06:44:09 06/20/19 24 06/20/2023 COMPL ETE BLOOD COUNT NO DIFF HCT 33.2 % 40.0-5 0.0 low Not Available [address] [place], [address] 06/20/2023 06:44:09 06/20/19 24 06/20/2023 COMPL ETE BLOOD COUNT NO DIFF MCV 78 fL 80-95 low Not Available [address] [place], [address] 06/20/2023 06:44:09 06/20/19 24 06/20/2023 COMPL ETE BLOOD COUNT NO DIFF MCH 24.4 pg 27.0-3 3.0 low Not Available [address] [place], [address] 06/20/2023 06:44:09 06/20/19 24 06/20/2023 COMPL ETE BLOOD COUNT NO DIFF MCHC 31.3 % 32.0-3 6.0 low Not Available [address] [place], [address] 06/20/2023 06:44:09 06/20/19 24 06/20/2023 COMPL ETE BLOOD COUNT NO DIFF RDW 21.1 % 11.8-1 4.1 high Consi stent with previ ous resul ts. Not Available [address] [place], [address] 06/20/2023 06:44:09 04/17/20 24 06/20/2023 COMPL ETE BLOOD COUNT NO DIFF platelet count 237 10_3/ uL 130-40 0 normal Not Available [address] [place], [address] 06/20/2023 06:44:09 06/20/19 24 06/20/2023 COMPL ETE BLOOD COUNT NO DIFF MPV 10.4 fL 8.0-11 .0 normal Not Available [address] [place], [address] 06/20/2023 06:44:09 06/20/19 24 06/20/2023 BASIC METAB OLIC PANEL calcium 8.5 mg/dL 8.5-10 .1 normal Not Available [address] [place], [address] 06/20/2023 07:09:09 06/20/19 24 06/20/2023 BASIC METAB OLIC PANEL glucose 145 mg/dL 74-106 high Not Available Caro [address] [place], [address] 06/20/2023 07:09:09 06/20/19 24 06/20/2023 BASIC METAB OLIC PANEL BUN 23 mg/dL 7-18 high Not Available Caro [address] [place], [address] 06/20/2023 07:09:09 06/20/19 24 06/20/2023 BASIC METAB OLIC PANEL creatinine 1.4 mg/dL 0.70-1 .30 high Not Available [address] [place], [address] 06/20/2023 07:09:09 06/20/19 24 06/20/2023 BASIC METAB OLIC PANEL estimated GFR 54.75 mL/min /1.73m 2 The eGFR is calcu lated from a serum creat inine using the CKD-E PI 2020 equat ion. Other varia bles requi red for the equat ion are gende r and age; this equat ion does not inclu de a race coeff icien t. This equat ion has simil ar overa ll perfo rmanc e to previ ous equat ions excep t value s may diffe r, in parti cular , in patie nts with highe r value s of eGFR and young er-ag ed adult s. Not Available [address] [place], [address] 06/20/2023 07:09:09 06/20/19 24 06/20/2023 BASIC METAB OLIC PANEL sodium 137 mmol/ L 136-14 5 normal Not Available [address] [place], [address] 06/20/2023 07:09:09 06/20/19 24 06/20/2023 BASIC METAB OLIC PANEL potassium 4.7 mmol/ L 3.5-5. 1 normal Not Available [address] [place], [address] 06/20/2023 07:09:09 06/20/19 24 06/20/2023 BASIC METAB OLIC PANEL chloride 102 mmol/ L 98-107 normal Not Available [address] [place], [address] 06/20/2023 07:09:09 06/20/19 24 06/20/2023 BASIC METAB OLIC PANEL CO2 23.9 mmol/ L 21.0-3 2.0 normal Not Available [address] [place], [address] 06/20/2023 07:09:09 06/20/19 24 06/20/2023 BASIC METAB OLIC PANEL anion gap 11.1 mmol/ L 3-11 high Not Available [address] [place], [address] 06/20/2023 07:09:09 06/20/19 24 06/20/2023 MAGNE SIUM magnesium 1.8 mg/dL 1.8-2. 4 normal Not Available [address] [place], [address] 06/20/2023 07:09:10 06/20/19 24 06/20/2023 LIVER PANEL total protein 7.3 g/dL 6.4-8. 2 normal Not Available [address] [place], [address] 06/20/2023 20:57:17 06/20/19 24 06/20/2023 LIVER PANEL albumin 3.1 g/dL 3.4-5. 0 low Not Available [address] [place], [address] 06/20/2023 20:57:17 06/20/19 24 06/20/2023 LIVER PANEL bilirubin, total 0.6 mg/dL 0.2-1. 0 normal Not Available [address] [place], [address] 06/20/2023 20:57:17 06/20/19 24 06/20/2023 LIVER PANEL alk phos 107 U/L 46-116 normal Not Available [address] [place] [place], [address] 06/20/2023 20:57:17 06/20/19 24 06/20/2023 LIVER PANEL AST 42 U/L 15-37 high Not Available Caro gutierres [address] [place], [address] 06/20/2023 20:57:17 06/20/19 24 06/20/2023 LIVER PANEL ALT 22 U/L 16-63 normal Not Available Caro gutierres [address] [place], [address] 06/20/2023 20:57:17 06/20/19 24 06/20/2023 LIVER PANEL bilirubin, conjugated 0.4 mg/dL 0.0-0. 2 high Not Available [address] [place], [address] 06/20/2023 20:57:17 06/20/19 24 06/20/2023 COMPL ETE BLOOD COUNT NO DIFF WBC 8.35 10_3/ uL 4.4-10 .8 normal Not Available [address] [place], [address] 06/20/2023 20:57:18 06/20/19 24 06/20/2023 COMPL ETE BLOOD COUNT NO DIFF RBC 4.23 10_6/ uL 4.36-5 .78 low Not Available [address] [place], [address] 06/20/2023 20:57:18 06/20/19 24 06/20/2023 COMPL ETE BLOOD COUNT NO DIFF HGB 10.1 g/dL 13.5-1 7.5 low Not Available [address] [place], [address] 06/20/2023 20:57:18 06/20/19 24 06/20/2023 COMPL ETE BLOOD COUNT NO DIFF HCT 33.7 % 40.0-5 0.0 low Not Available [address] [place], [address] 06/20/2023 20:57:18 06/20/19 24 06/20/2023 COMPL ETE BLOOD COUNT NO DIFF MCV 80 fL 80-95 normal Not Available Caro gutierres [address] [place], [address] 06/20/2023 20:57:18 06/20/19 24 06/20/2023 COMPL ETE BLOOD COUNT NO DIFF MCH 23.9 pg 27.0-3 3.0 low Not Available [address] [place], [address] 06/20/2023 20:57:18 06/20/19 24 06/20/2023 COMPL ETE BLOOD COUNT NO DIFF MCHC 30.0 % 32.0-3 6.0 low 2+ hypoc hromi a Not Available [address] [place], [address] 06/20/2023 20:57:18 06/20/19 24 06/20/2023 COMPL ETE BLOOD COUNT NO DIFF RDW 21.2 % 11.8-1 4.1 high 2+ aniso cytos is 1+ poiki locyt osis inclu ding ellip tocyt es and helme t cells polyc hroma diomedes prese nt Not Available [address] [place], [address] 06/20/2023 20:57:18 06/20/19 24 06/20/2023 COMPL ETE BLOOD COUNT NO DIFF platelet count 241 10_3/ uL 130-40 0 normal Not Available [address] [place], [address] 06/20/2023 20:57:18 06/20/19 24 06/20/2023 COMPL ETE BLOOD COUNT NO DIFF MPV 10.0 fL 8.0-11 .0 normal Not Available [address] [place], [address] 06/20/2023 20:57:18 06/20/19 24 06/20/2023 PROTH ROMBI N TIME prothrombin time 14.5 sec 9.1-11 .1 high Not Available [address] [place], [address] 06/20/2023 20:59:14 06/20/19 24 06/20/2023 PROTH ROMBI N TIME INR 1.5 0.9-1. 1 high Recom martha d INR thera peuti c range s for orall y admin ister ed drugs are as follo ws: -Truman dard Inten sity 2.0 to 3.0 -High er Inten sity 3.0 to 4.5 Not Available [address] [place], [address] 06/20/2023 20:59:14 06/20/19 24 06/20/2023 PTT ACTIV ATED PTT activated 28.8 sec 23.6-3 2.8 normal Hepar in Thera peuti c Range for PTT = 52-84 secon ds New Hepar in Thera peuti c Range 04/10 Not Available [address] [place], [address] 06/20/2023 20:59:14 06/21/19 24 06/21/2023 PROTH ROMBI N TIME prothrombin time 13.8 sec 9.1-11 .1 high Not Available [address] [place], [address] 06/21/2023 07:05:08 06/21/19 24 06/21/2023 PROTH ROMBI N TIME INR 1.4 0.9-1. 1 high Recom martha d INR thera peuti c range s for orall y admin ister ed drugs are as follo ws: -Truman dard Inten sity 2.0 to 3.0 -High er Inten sity 3.0 to 4.5 Not Available [address] [place], [address] 06/21/2023 07:05:08 06/21/19 24 06/21/2023 LIVER PANEL total protein 7.1 g/dL 6.4-8. 2 normal Not Available [address] [place], [address] 06/21/2023 07:10:11 06/21/19 24 06/21/2023 LIVER PANEL albumin 3.0 g/dL 3.4-5. 0 low Not Available [address] [place], [address] 06/21/2023 07:10:11 06/21/19 24 06/21/2023 LIVER PANEL bilirubin, total 0.7 mg/dL 0.2-1. 0 normal Not Available [address] [place], [address] 06/21/2023 07:10:11 06/21/19 24 06/21/2023 LIVER PANEL alk phos 103 U/L 46-116 normal Not Available [address] [place] [place], [address] 06/21/2023 07:10:11 06/21/19 24 06/21/2023 LIVER PANEL AST 88 U/L 15-37 high Not Available Caro gutierres [address] [place], [address] 06/21/2023 07:10:11 06/21/19 24 06/21/2023 LIVER PANEL ALT 33 U/L 16-63 normal Not Available Caro gutierres [address] [place], [address] 06/21/2023 07:10:11 06/21/19 24 06/21/2023 LIVER PANEL bilirubin, conjugated 0.4 mg/dL 0.0-0. 2 high Not Available [address] [place], [address] 06/21/2023 07:10:11 06/21/19 24 06/21/2023 COMPL ETE BLOOD COUNT NO DIFF WBC 7.39 10_3/ uL 4.4-10 .8 normal Not Available [address] [place], [address] 06/21/2023 07:17:11 06/21/19 24 06/21/2023 COMPL ETE BLOOD COUNT NO DIFF RBC 4.13 10_6/ uL 4.36-5 .78 low Not Available [address] [place], [address] 06/21/2023 07:17:11 06/21/19 24 06/21/2023 COMPL ETE BLOOD COUNT NO DIFF HGB 10.0 g/dL 13.5-1 7.5 low 1+ Hypoc hromi a seen Not Available [address] [place], [address] 06/21/2023 07:17:11 06/21/19 24 06/21/2023 COMPL ETE BLOOD COUNT NO DIFF HCT 32.9 % 40.0-5 0.0 low Not Available [address] [place], [address] 06/21/2023 07:17:11 06/21/19 24 06/21/2023 COMPL ETE BLOOD COUNT NO DIFF MCV 80 fL 80-95 normal Not Available [address] [place], [address] 06/21/2023 07:17:11 06/21/19 24 06/21/2023 COMPL ETE BLOOD COUNT NO DIFF MCH 24.2 pg 27.0-3 3.0 low Not Available [address] [place], [address] 06/21/2023 07:17:11 06/21/19 24 06/21/2023 COMPL ETE BLOOD COUNT NO DIFF MCHC 30.4 % 32.0-3 6.0 low Not Available [address] [place], [address] 06/21/2023 07:17:11 06/21/19 24 06/21/2023 COMPL ETE BLOOD COUNT NO DIFF RDW 21.2 % 11.8-1 4.1 high 1+ Aniso cytos is, Not Available [address] [place], [address] 06/21/2023 07:17:11 06/21/19 24 06/21/2023 COMPL ETE BLOOD COUNT NO DIFF platelet count 201 10_3/ uL 130-40 0 normal Not Available [address] [place], [address] 06/21/2023 07:17:11 06/21/19 24 06/21/2023 COMPL ETE BLOOD COUNT NO DIFF MPV 10.0 fL 8.0-11 .0 normal Not Available [address] [place], [address] 06/21/2023 07:17:11 06/21/19 24 06/21/2023 COMPL ETE BLOOD COUNT NO DIFF WBC 6.64 10_3/ uL 4.4-10 .8 normal Not Available [address] [place], [address] 06/21/2023 17:20:00 06/21/19 24 06/21/2023 COMPL ETE BLOOD COUNT NO DIFF RBC 3.92 10_6/ uL 4.36-5 .78 low Not Available [address] [place], [address] 06/21/2023 17:20:00 06/21/19 24 06/21/2023 COMPL ETE BLOOD COUNT NO DIFF HGB 9.4 g/dL 13.5-1 7.5 low Not Available [address] [place], [address] 06/21/2023 17:20:00 06/21/19 24 06/21/2023 COMPL ETE BLOOD COUNT NO DIFF HCT 31.1 % 40.0-5 0.0 low Not Available [address] [place], [address] 06/21/2023 17:20:00 06/21/19 24 06/21/2023 COMPL ETE BLOOD COUNT NO DIFF MCV 79 fL 80-95 low Not Available [address] [place], [address] 06/21/2023 17:20:00 06/21/19 24 06/21/2023 COMPL ETE BLOOD COUNT NO DIFF MCH 24.0 pg 27.0-3 3.0 low Not Available [address] [place], [address] 06/21/2023 17:20:00 06/21/19 24 06/21/2023 COMPL ETE BLOOD COUNT NO DIFF MCHC 30.2 % 32.0-3 6.0 low Not Available [address] [place], [address] 06/21/2023 17:20:00 06/21/19 24 06/21/2023 COMPL ETE BLOOD COUNT NO DIFF RDW 20.7 % 11.8-1 4.1 high Not Available [address] [place], [address] 06/21/2023 17:20:00 06/21/19 24 06/21/2023 COMPL ETE BLOOD COUNT NO DIFF platelet count 173 10_3/ uL 130-40 0 normal Not Available [address] [place], [address] 06/21/2023 17:20:00 06/21/19 24 06/21/2023 COMPL ETE BLOOD COUNT NO DIFF MPV 10.4 fL 8.0-11 .0 normal Not Available [address] [place], [address] 06/21/2023 17:20:00 06/22/19 24 06/22/2023 LACTA TE lactate 2.6 mmol/ L 0.6-1. 4 panic high Criti hillary value repor bal to and gigi nava from ABE BURNHAM, RN at 0718 06/21 by LAB.M CGD Not Available [address] [place], [address] 06/22/2023 07:22:02 06/22/19 24 06/22/2023 PROTH ROMBI N TIME prothrombin time 14.6 sec 9.1-11 .1 high Not Available [address] [place], [address] 06/22/2023 07:34:07 06/22/19 24 06/22/2023 PROTH ROMBI N TIME INR 1.5 0.9-1. 1 high Recom martha d INR thera peuti c range s for orall y admin ister ed drugs are as follo ws: -Truman dard Inten sity 2.0 to 3.0 -High er Inten sity 3.0 to 4.5 Not Available [address] [place], [address] 06/22/2023 07:34:07 06/22/19 24 06/22/2023 LIVER PANEL total protein 6.6 g/dL 6.4-8. 2 normal Not Available [address] [place], [address] 06/22/2023 07:43:08 06/22/19 24 06/22/2023 LIVER PANEL albumin 2.8 g/dL 3.4-5. 0 low Not Available [address] [place], [address] 06/22/2023 07:43:08 06/22/19 24 06/22/2023 LIVER PANEL bilirubin, total 0.6 mg/dL 0.2-1. 0 normal Not Available [address] [place], [address] 06/22/2023 07:43:08 06/22/19 24 06/22/2023 LIVER PANEL alk phos 101 U/L 46-116 normal Not Available [address] [place], [address] 06/22/2023 07:43:08 06/22/19 24 06/22/2023 LIVER PANEL AST 218 U/L 15-37 high Not Available Caro [address] [place], [address] 06/22/2023 07:43:08 06/22/19 24 06/22/2023 LIVER PANEL ALT 57 U/L 16-63 normal Not Available Caro gutierres [address] [place], [address] 06/22/2023 07:43:08 06/22/19 24 06/22/2023 LIVER PANEL bilirubin, conjugated 0.4 mg/dL 0.0-0. 2 high Not Available [address] [place], [address] 06/22/2023 07:43:08 06/22/19 24 06/22/2023 LACTA TE lactate 2.6 mmol/ L 0.6-1. 4 panic high Criti hillary value repor bal to and gigi nava from ABE BURNHAM, RN at 0718 06/21 by LAB.M CGD Not Available [address] [place], [address] 06/22/2023 07:55:11 06/22/19 24 06/22/2023 PROCA LCITO DIANA procalcitoni n < 0.1 NG/mL PCT Value (ng/m L): Inter preta tion: <0.5 Low risk for sever e sepsi s/sep tic shock >or=0 .5 and <2.0 Sever e sepsi s/sep tic shock is possi ble >or=2 .0 High risk for sever e sepsi s/sep tic shock Note: Decis ions regar ding antib iotic thera py shoul d NOT be based solel y on proca lcito diana emeka ntrat ions. A proca lcito diana emeka ntrat ion of <0.5 ng/mL does not entir joão exclu de syste etta bacte rial infec tion/ sepsi s. Corre latio n with the full clini hillary, imagi ng, and labor atory findi ngs is requi red for a compl ete sepsi s evalu ation . Addit ional ly, eleva bal proca lcito diana emeka ntrat ions may not alway s be relat ed to syste etta bacte rial infec tion and can be seen in the setti ng of sever e salcedo , major traum a, major surge ry, pancr eatit is, bowel ische david, asept ic syste etta shock (anap hylac tic, hemor rhagi c, or cardi ogeni c), renal insuf ficie ncy, medul luisa thyro id cance r, small cell lung cance r, drugs stimu latin g pro-i nflam mator y cytok claire, invas ria funga l infec tions , Kawas ella disea se, among other cause s. Not Available [address] [place], [address] 06/22/2023 07:55:11 06/22/19 24 06/23/2023 BLOOD CULTU RE ( AGE => 10 YRS) blood culture ( age => 10 yrs) Blood Cultu re ( Age => 10 Yrs) NO GROWT H 24 HOURS Not Available [address] [place], [address] 06/23/2023 09:17:22 06/22/19 24 06/23/2023 BLOOD CULTU RE ( AGE => 10 YRS) blood culture ( age => 10 yrs) Blood Cultu re ( Age => 10 Yrs) NO GROWT H 24 HOURS Not Available [address] [place], [address] 06/23/2023 09:17:23 06/22/19 24 06/24/2023 BLOOD CULTU RE ( AGE => 10 YRS) blood culture ( age => 10 yrs) Blood Cultu re ( Age => 10 Yrs) NO GROWT H 48 HOURS Not Available [address] [place], [address] 06/24/2023 09:17:46 06/22/19 24 06/24/2023 BLOOD CULTU RE ( AGE => 10 YRS) blood culture ( age => 10 yrs) Blood Cultu re ( Age => 10 Yrs) NO GROWT H 48 HOURS Not Available [address] [place], [address] 06/24/2023 09:17:47 06/22/19 24 06/25/2023 BLOOD CULTU RE ( AGE => 10 YRS) blood culture ( age => 10 yrs) Blood Cultu re ( Age => 10 Yrs) NO GROWT H 72 HOURS Not Available [address] [place], [address] 06/25/2023 10:00:16 06/22/19 24 06/25/2023 BLOOD CULTU RE ( AGE => 10 YRS) blood culture ( age => 10 yrs) Blood Cultu re ( Age => 10 Yrs) NO GROWT H 72 HOURS Not Available [address] [place], [address] 06/25/2023 10:00:17 06/22/19 24 06/26/2023 BLOOD CULTU RE ( AGE => 10 YRS) blood culture ( age => 10 yrs) Blood Cultu re ( Age => 10 Yrs) NO GROWT H 96 HOURS Not Available [address] [place], [address] 06/26/2023 09:17:36 06/22/19 24 06/26/2023 BLOOD CULTU RE ( AGE => 10 YRS) blood culture ( age => 10 yrs) Blood Cultu re ( Age => 10 Yrs) NO GROWT H 96 HOURS Not Available [address] [place], [address] 06/26/2023 09:17:38 06/22/19 24 06/27/2023 BLOOD CULTU RE ( AGE => 10 YRS) blood culture ( age => 10 yrs) Blood Cultu re ( Age => 10 Yrs) NO GROWT H 120 HOURS Not Available [address] [place], [address] 06/27/2023 09:16:58 06/22/19 24 06/27/2023 BLOOD CULTU RE ( AGE => 10 YRS) blood culture ( age => 10 yrs) Blood Cultu re ( Age => 10 Yrs) NO GROWT H 120 HOURS Not Available [address] [place], [address] 06/27/2023 09:17:56 06/23/1906/23/2023 HEMOG LOBIN /EDIL TOCRI T HGB 8.8 g/dL 13.5-1 7.5 low Not Available [address] [place], [address] 06/23/2023 10:11:26 06/23/1906/23/2023 HEMOG LOBIN /EDIL TOCRI T HCT 29.3 % 40.0-5 0.0 low Not Available [address] [place], [address] 06/23/2023 10:11:26 06/23/19 24 06/23/2023 PROTH ROMBI N TIME prothrombin time 13.8 sec 9.1-11 .1 high Not Available [address] [place], [address] 06/23/2023 10:16:26 06/23/19 24 06/23/2023 PROTH ROMBI N TIME INR 1.4 0.9-1. 1 high Recom martha d INR thera peuti c range s for orall y admin ister ed drugs are as follo ws: -Truman dard Inten sity 2.0 to 3.0 -High er Inten sity 3.0 to 4.5 Not Available [address] [place], [address] 06/23/2023 10:16:26 06/23/19 24 06/23/2023 LIVER PANEL total protein 6.5 g/dL 6.4-8. 2 normal Not Available [address] [place], [address] 06/23/2023 10:20:27 06/23/19 24 06/23/2023 LIVER PANEL albumin 2.8 g/dL 3.4-5. 0 low Not Available [address] [place], [address] 06/23/2023 10:20:27 06/23/19 24 06/23/2023 LIVER PANEL bilirubin, total 0.6 mg/dL 0.2-1. 0 normal Not Available [address] [place], [address] 06/23/2023 10:20:27 06/23/19 24 06/23/2023 LIVER PANEL alk phos 108 U/L 46-116 normal Not Available [address] [place], [address] 06/23/2023 10:20:27 06/23/19 24 06/23/2023 LIVER PANEL AST 278 U/L 15-37 high Not Available Caro gutierres [address] [place], [address] 06/23/2023 10:20:27 06/23/19 24 06/23/2023 LIVER PANEL ALT 67 U/L 16-63 high Not Available Caro gutierres [address] [place], [address] 06/23/2023 10:20:27 06/23/19 24 06/23/2023 LIVER PANEL bilirubin, conjugated 0.5 mg/dL 0.0-0. 2 high Not Available [address] [place], [address] 06/23/2023 10:20:27 06/24/19 24 06/24/2023 SELVIN IA ammonia 71 umol/ L 11-32 high Not Available [address] [place], [address] 06/24/2023 18:36:39 06/24/19 24 06/24/2023 COMPL ETE BLOOD COUNT W/DIF F WBC 18.52 10_3/ uL 4.4-10 .8 high Not Available [address] [place], [address] 06/24/2023 18:50:41 06/24/19 24 06/24/2023 COMPL ETE BLOOD COUNT W/DIF F RBC 3.83 10_6/ uL 4.36-5 .78 low Not Available [address] [place], [address] 06/24/2023 18:50:41 06/24/19 24 06/24/2023 COMPL ETE BLOOD COUNT W/DIF F HGB 9.2 g/dL 13.5-1 7.5 low Not Available [address] [place], [address] 06/24/2023 18:50:41 06/24/19 24 06/24/2023 COMPL ETE BLOOD COUNT W/DIF F HCT 32.4 % 40.0-5 0.0 low Not Available [address] [place], [address] 06/24/2023 18:50:41 06/24/19 24 06/24/2023 COMPL ETE BLOOD COUNT W/DIF F MCV 85 fL 80-95 Not Available Caro gutierres [address] [place], [address] 06/24/2023 18:50:41 06/24/19 24 06/24/2023 COMPL ETE BLOOD COUNT W/DIF F MCH 24.0 pg 27.0-3 3.0 low Not Available [address] [place], [address] 06/24/2023 18:50:41 06/24/19 24 06/24/2023 COMPL ETE BLOOD COUNT W/DIF F MCHC 28.4 % 32.0-3 6.0 low Not Available [address] [place], [address] 06/24/2023 18:50:41 06/24/19 24 06/24/2023 COMPL ETE BLOOD COUNT W/DIF F RDW 21.0 % 11.8-1 4.1 high Not Available [address] [place], [address] 06/24/2023 18:50:41 06/24/19 24 06/24/2023 COMPL ETE BLOOD COUNT W/DIF F platelet count 154 10_3/ uL 130-40 0 normal Large plate lets noted . Not Available [address] [facility] [place], [address] 06/24/2023 18:50:41 06/24/19 24 06/24/2023 COMPL ETE BLOOD COUNT W/DIF F MPV 10.8 fL 8.0-11 .0 normal Not Available [address] [place], [address] 06/24/2023 18:50:41 06/24/19 24 06/24/2023 COMPL ETE BLOOD COUNT W/DIF F neutrophils % 82.0 Not Available [address] [facility] [place], [address] 06/24/2023 18:50:41 06/24/19 24 06/24/2023 COMPL ETE BLOOD COUNT W/DIF F bands % 5 Not Available Caro gutierres [address] [facility] [place], [address] 06/24/2023 18:50:41 06/24/19 24 06/24/2023 COMPL ETE BLOOD COUNT W/DIF F lymphocytes % 3.0 Not Available [address] [facility] [place], [address] 06/24/2023 18:50:41 06/24/19 24 06/24/2023 COMPL ETE BLOOD COUNT W/DIF F monocytes % 9.0 Not Available [address] [place], [address] 06/24/2023 18:50:41 06/24/19 24 06/24/2023 COMPL ETE BLOOD COUNT W/DIF F eosinophils % 0.0 Not Available [address] [place], [address] 06/24/2023 18:50:41 06/24/19 24 06/24/2023 COMPL ETE BLOOD COUNT W/DIF F basophils % 0.0 Not Available [address] [place], [address] 06/24/2023 18:50:41 06/24/19 24 06/24/2023 COMPL ETE BLOOD COUNT W/DIF F nucleated RBC 2.0 % 0.0-0. 3 high Not Available [address] [place], [address] 06/24/2023 18:50:41 06/24/19 24 06/24/2023 COMPL ETE BLOOD COUNT W/DIF F myelocytes % 1 Not Available [address] [place], [address] 06/24/2023 18:50:41 06/24/19 24 06/24/2023 COMPL ETE BLOOD COUNT W/DIF F absolute neutrophil count 16.11 10_3/ uL 1.2-6. 7 high Toxic granu latio n noted . Not Available [address] [place], [address] 06/24/2023 18:50:41 06/24/19 24 06/24/2023 COMPL ETE BLOOD COUNT W/DIF F absolute lymphocyte count 0.56 10_3/ uL 1.2-3. 4 low Not Available [address] [place], [address] 06/24/2023 18:50:41 06/24/19 24 06/24/2023 COMPL ETE BLOOD COUNT W/DIF F absolute monocyte count 1.67 10_3/ uL 0.1-0. 8 high Not Available [address] [place], [address] 06/24/2023 18:50:41 06/24/19 24 06/24/2023 COMPL ETE BLOOD COUNT W/DIF F absolute eosinophil count 0.00 10_3/ uL 0.0-0. 7 normal Not Available [address] [place], [address] 06/24/2023 18:50:41 06/24/19 24 06/24/2023 COMPL ETE BLOOD COUNT W/DIF F absolute basophil count 0.00 10_3/ uL 0.0-0. 2 normal Not Available [address] [place], [address] 06/24/2023 18:50:41 06/24/19 24 06/24/2023 COMPL ETE BLOOD COUNT W/DIF F diff comment Manual Differ ential Not Available [address] [place], [address] 06/24/2023 18:50:41 06/24/19 24 06/24/2023 COMPL ETE BLOOD COUNT W/DIF F RBC morphology See Below Not Available [address] [place], [address] 06/24/2023 18:50:41 06/24/19 24 06/24/2023 COMPL ETE BLOOD COUNT W/DIF F anisocytosis 2+ Not Available [address] [place], [address] 06/24/2023 18:50:41 06/24/19 24 06/24/2023 COMPL ETE BLOOD COUNT W/DIF F hypochromasi a 1+ Not Available [address] [place], [address] 06/24/2023 18:50:41 06/24/19 24 06/24/2023 COMPL ETE BLOOD COUNT W/DIF F poikilocytes 2+ Inclu elissa ellip tocyt es, RBC fragm ents, and targe t cells Not Available [address] [place], [address] 06/24/2023 18:50:41 06/24/19 24 06/24/2023 VENOU S BLOOD GAS pH (venous) 7.09 7.31-7 .41 critical low Criti hillary value repor bal to and readb ack from Abe caraballo RN ICU at 06/23 by LAB.K TANYA Not Available [address] [place], [address] 06/24/2023 18:57:41 06/24/19 24 06/24/2023 VENOU S BLOOD GAS pCO2 (venous) 39 mmHg 41-51 low Not Available [address] [place], [address] 06/24/2023 18:57:41 06/24/19 24 06/24/2023 VENOU S BLOOD GAS pO2 (venous) 53 mmHg Not Available [address] [place], [address] 06/24/2023 18:57:41 06/24/19 24 06/24/2023 VENOU S BLOOD GAS TCO2 (venous) 12 mmol/ L 24-29 low Not Available [address] [place], [address] 06/24/2023 18:57:41 06/24/19 24 06/24/2023 VENOU S BLOOD GAS HCO3 (venous) 12 mmol/ L 23-28 low Not Available [address] [place], [address] 06/24/2023 18:57:41 06/24/19 24 06/24/2023 VENOU S BLOOD GAS BE (venous) -18 mmol/ L -2-3 low Not Available [address] [place], [address] 06/24/2023 18:57:41 06/24/19 24 06/24/2023 VENOU S BLOOD GAS O2 sat (venous) 74 % Not Available [address] [place], [address] 06/24/2023 18:57:41 06/24/19 24 06/24/2023 LACTA TE lactate 11.7 mmol/ L 0.6-1. 4 panic high Criti hillary value repor bal to and readb ack from Abe caraballo, [employer] MANAGER at 1904 06/23 by LAB.K TANYA Not Available [address] [place], [address] 06/24/2023 19:06:40 06/24/1926 0606/24/2023 COMPR EHENS RIA METAB OLIC PANEL calcium 8.4 mg/dL 8.5-10 .1 low Not Available [address] [place], [address] 06/24/2023 20:29:44 06/24/19 24 06/24/2023 COMPR EHENS RIA METAB OLIC PANEL glucose 98 mg/dL 74-106 normal Not Available Caro gutierres [address] [place], [address] 06/24/2023 20:29:44 06/24/19 24 06/24/2023 COMPR EHENS RIA METAB OLIC PANEL BUN 40 mg/dL 7-18 high Not Available Caro [address] [place], [address] 06/24/2023 20:29:44 06/24/19 24 06/24/2023 COMPR EHENS RIA METAB OLIC PANEL creatinine 2.3 mg/dL 0.70-1 .30 high Not Available [address] [place], [address] 06/24/2023 20:29:44 06/24/19 24 06/24/2023 COMPR EHENS RIA METAB OLIC PANEL estimated GFR 30.17 mL/min /1.73m 2 The eGFR is calcu lated from a serum creat inine using the CKD-E PI 2020 equat ion. Other varia bles requi red for the equat ion are gende r and age; this equat ion does not inclu de a race coeff icien t. This equat ion has simil ar overa ll perfo rmanc e to previ ous equat ions excep t value s may diffe r, in parti cular , in patie nts with highe r value s of eGFR and young er-ag ed adult s. Not Available [address] [place], [address] 06/24/2023 20:29:44 06/24/19 24 06/24/2023 COMPR EHENS RIA METAB OLIC PANEL total protein 6.2 g/dL 6.4-8. 2 low Not Available [address] [place], [address] 06/24/2023 20:29:44 06/24/19 24 06/24/2023 COMPR EHENS RIA METAB OLIC PANEL albumin 2.5 g/dL 3.4-5. 0 low Not Available [address] [place], [address] 06/24/2023 20:29:44 06/24/19 24 06/24/2023 COMPR EHENS RIA METAB OLIC PANEL bilirubin, total 1.5 mg/dL 0.2-1. 0 high Not Available [address] [place], [address] 06/24/2023 20:29:44 06/24/19 24 06/24/2023 COMPR EHENS RIA METAB OLIC PANEL alk phos 112 U/L 46-116 normal Not Available [address] [place], [address] 06/24/2023 20:29:44 06/24/19 24 06/24/2023 COMPR EHENS RIA METAB OLIC PANEL sodium 125 mmol/ L 136-14 5 low Not Available [address] [place], [address] 06/24/2023 20:29:44 06/24/19 24 06/24/2023 COMPR EHENS RIA METAB OLIC PANEL potassium 7.8 mmol/ L 3.5-5. 1 panic high Criti hillary value repor bal to and readb ack from Abe caraballo [employer] G[employer] MANAGER at 06/23 by LAB.K TANYA Sampl e is NOT hemol yzed. Resul t verif ied by repea t vale sis Not Available [address] [place], [address] 06/24/2023 20:29:44 06/24/19 24 06/24/2023 COMPR EHENS RIA METAB OLIC PANEL chloride 93 mmol/ L 98-107 low Not Available [address] [place], [address] 06/24/2023 20:29:44 06/24/19 24 06/24/2023 COMPR EHENS RIA METAB OLIC PANEL CO2 10.8 mmol/ L 21.0-3 2.0 low Not Available [address] [place], [address] 06/24/2023 20:29:44 06/24/19 24 06/24/2023 COMPR EHENS RIA METAB OLIC PANEL anion gap 21.2 mmol/ L 3-11 high Not Available [address] [place], [address] 06/24/2023 20:29:44 06/24/19 24 06/24/2023 COMPR EHENS RIA METAB OLIC PANEL AST 7414 U/L 15-37 high Resul t verif ied by dilut ion and repea t vale sis Not Available [address] [place], [address] 06/24/2023 20:29:44 06/24/19 24 06/24/2023 COMPR EHENS RIA METAB OLIC PANEL ALT 2192 U/L 16-63 high Resul t verif ied by dilut ion and repea t vale sis Not Available [address] [place], [address] 06/24/2023 20:29:44 06/24/19 24 06/24/2023 MAGNE SIUM magnesium 2.0 mg/dL 1.8-2. 4 normal Not Available [address] [place], [address] 06/24/2023 19:22:42 06/24/19 24 06/24/2023 TROPO DIANA I troponin I < 50 NG/L < or =60 Not Available [address] [place], [address] 06/24/2023 20:29:45 06/24/19 24 06/24/2023 MAGNE SIUM magnesium 2.0 mg/dL 1.8-2. 4 normal Not Available [address] [place], [address] 06/24/2023 19:24:42 06/24/19 24 06/24/2023 MAGNE SIUM magnesium 2.0 mg/dL 1.8-2. 4 normal Not Available [address] [place], [address] 06/24/2023 20:29:45 06/24/19 24 06/24/2023 VENOU S BLOOD GAS pH (venous) 6.92 7.31-7 .41 critical low Criti hillary value repor bal to and [place]b [place] [address]/23 by LAB.K TANYA Not Available [address] [place], [address] 06/24/2023 22:50:49 06/24/19 24 06/24/2023 VENOU S BLOOD GAS pCO2 (venous) 72 mmHg 41-51 panic high Criti hillary value repor bal to and [place]b [place] [address]/23 by LAB.K TANYA Not Available [address] [place], [address] 06/24/2023 22:50:49 06/24/19 24 06/24/2023 VENOU S BLOOD GAS pO2 (venous) 34 mmHg Not Available [address] [place], [address] 06/24/2023 22:50:49 06/24/19 24 06/24/2023 VENOU S BLOOD GAS TCO2 (venous) 16 mmol/ L 24-29 low Not Available [address] [place], [address] 06/24/2023 22:50:49 06/24/19 24 06/24/2023 VENOU S BLOOD GAS HCO3 (venous) 15 mmol/ L 23-28 low Not Available [address] [place], [address] 06/24/2023 22:50:49 06/24/19 24 06/24/2023 VENOU S BLOOD GAS BE (venous) -18 mmol/ L -2-3 low Not Available [address] [place], [address] 06/24/2023 22:50:49 06/24/19 24 06/24/2023 VENOU S BLOOD GAS O2 sat (venous) 34 % Not Available [address] [place], [address] 06/24/2023 22:50:49 06/24/19 24 06/24/2023 BASIC METAB OLIC PANEL calcium 8.8 mg/dL 8.5-10 .1 normal Not Available [address] [place], [address] 06/24/2023 23:02:50 06/24/19 24 06/24/2023 BASIC METAB OLIC PANEL glucose 187 mg/dL 74-106 high Not Available Caro gutierres [address] [place], [address] 06/24/2023 23:02:50 06/24/19 24 06/24/2023 BASIC METAB OLIC PANEL BUN 42 mg/dL 7-18 high Not Available Caro gutierres [address] [place], [address] 06/24/2023 23:02:50 06/24/19 24 06/24/2023 BASIC METAB OLIC PANEL creatinine 2.8 mg/dL 0.70-1 .30 high Not Available [address] [place], [address] 06/24/2023 23:02:50 06/24/19 24 06/24/2023 BASIC METAB OLIC PANEL estimated GFR 23.83 mL/min /1.73m 2 The eGFR is calcu lated from a serum creat inine using the CKD-E PI 2020 equat ion. Other varia bles requi red for the equat ion are gende r and age; this equat ion does not inclu de a race coeff icien t. This equat ion has simil ar overa ll perfo rmanc e to previ ous equat ions excep t value s may diffe r, in parti cular , in patie nts with highe r value s of eGFR and young er-ag ed adult s. Not Available [address] [place], [address] 06/24/2023 23:02:50 06/24/19 24 06/24/2023 BASIC METAB OLIC PANEL sodium 127 mmol/ L 136-14 5 low Not Available [address] [place], [address] 06/24/2023 23:02:50 06/24/19 24 06/24/2023 BASIC METAB OLIC PANEL potassium 6.7 mmol/ L 3.5-5. 1 panic high Criti hillary value GINA crowley bal to and iggi nava from ROSE Morales RN (ICU) at 2258 06/23 by LAB.B ONC Not Available [address] [place], [address] 06/24/2023 23:02:50 06/24/19 24 06/24/2023 BASIC METAB OLIC PANEL chloride 93 mmol/ L 98-107 low Not Available [address] [place], [address] 06/24/2023 23:02:50 06/24/19 24 06/24/2023 BASIC METAB OLIC PANEL CO2 17.9 mmol/ L 21.0-3 2.0 low Not Available [address] [place], [address] 06/24/2023 23:02:50 06/24/19 24 06/24/2023 BASIC METAB OLIC PANEL anion gap 16.1 mmol/ L 3-11 high Not Available [address] [place], [address] 06/24/2023 23:02:50 06/24/19 24 06/24/2023 PROTH ROMBI N TIME prothrombin time 25.3 sec 9.1-11 .1 high Not Available [address] [place], [address] 06/24/2023 23:06:50 06/24/19 24 06/24/2023 PROTH ROMBI N TIME INR 2.7 0.9-1. 1 high Recom martha d INR thera peuti c range s for orall y admin ister ed drugs are as follo ws: -Truman dard Inten sity 2.0 to 3.0 -High er Inten sity 3.0 to 4.5 Not Available [address] [place], [address] 06/24/2023 23:06:50 06/24/19 24 06/24/2023 PTT ACTIV ATED PTT activated 37.9 sec 23.6-3 2.8 high Hepar in Thera peuti c Range for PTT = 52-84 secon ds New Hepar in Thera peuti c Range 04/10 Not Available [address] [place], [address] 06/24/2023 23:06:50 06/24/19 24 06/24/2023 VITAM IN B12 vitamin B12 > 2000 pg/mL 193-98 6 high Not Available [address] [place], [address] 06/25/2023 00:01:04 06/24/19 24 06/24/2023 FOLAT E folate > 20.0 NG/mL 8.6-20 .0 high Not Available [address] [place], [address] 06/25/2023 00:01:05 06/24/19 24 06/25/2023 FIBRI NOGEN (STAT ) (SUZE DAILEY ) fibrinogen (stat) ([place]) 248 mg/dL 208-43 4 normal Repor bal resul ts to and read back from to Liban worthington RN (ICU) 06/24 at 0955 by LAB.P ELN Test Perfo rmed by: Ghassan franks [facility] [address] [place] [address] Not Available [address] [place], [address] 06/25/2023 17:56:41 06/24/19 24 06/26/2023 BLOOD CULTU RE ( AGE => 10 YRS) blood culture ( age => 10 yrs) Blood Cultu re ( Age => 10 Yrs) NO GROWT H 24 HOURS Not Available [address] [place], [address] 06/26/2023 03:08:49 06/24/19 24 06/27/2023 BLOOD CULTU RE ( AGE => 10 YRS) blood culture ( age => 10 yrs) Blood Cultu re ( Age => 10 Yrs) NO GROWT H 48 HOURS Not Available [address] [place], [address] 06/27/2023 00:47:33 06/24/19 06/28/2023 BLOOD CULTU RE ( AGE => 10 YRS) blood culture ( age => 10 yrs) Blood Cultu re ( Age => 10 Yrs) NO GROWT H 72 HOURS Not Available [address] [place], [address] 06/28/2023 00:48:27 06/24/19 24 06/29/2023 BLOOD CULTU RE ( AGE => 10 YRS) blood culture ( age => 10 yrs) Blood Cultu re ( Age => 10 Yrs) NO GROWT H 96 HOURS Not Available [address] [place], [address] 06/29/2023 00:47:37 06/24/19 24 06/30/2023 BLOOD CULTU RE ( AGE => 10 YRS) blood culture ( age => 10 yrs) Blood Cultu re ( Age => 10 Yrs) NO GROWT H 120 HOURS Not Available [address] [place], [address] 06/30/2023 00:46:07 06/25/19 24 06/25/2023 ARTER IAL BLOOD GAS site Arteri al Line Not Available Eduardo wells [address] [place], [address] 06/25/2023 02:06:32 06/25/19 24 06/25/2023 ARTER IAL BLOOD GAS fio2l 100 L Not Available Caro gutierres [address] [place], [address] 06/25/2023 02:06:32 06/25/19 24 06/25/2023 ARTER IAL BLOOD GAS pH 7.12 7.35-7 .45 critical low Criti hillary value PH repor bal to and readb ack from RHODA CAMACHO RT at 0200 06/24 by LAB.B ONC Not Available [address] [place], [address] 06/25/2023 02:06:32 06/25/19 24 06/25/2023 ARTER IAL BLOOD GAS pCO2 31 mmHg 35-45 low Not Available Caro gutierres [address] [place], [address] 06/25/2023 02:06:32 06/25/19 24 06/25/2023 ARTER IAL BLOOD GAS pO2 244 mmHg 80-105 high Not Available Caro gutierres [address] [place], [address] 06/25/2023 02:06:32 06/25/19 24 06/25/2023 ARTER IAL BLOOD GAS so2 % 95-98 VALUE ABOVE REPOR TABLE RANGE >99.0 Not Available [address] [place], [address] 06/25/2023 02:06:32 06/25/19 24 06/25/2023 ARTER IAL BLOOD GAS TCO2 mmol/ L 23-27 tCO2 canno t be calcu lated when the sO2 is >99.0 %. Not Available [address] [place], [address] 06/25/2023 02:06:32 06/25/19 24 06/25/2023 ARTER IAL BLOOD GAS BE -20 mmol/ L -2-3 low Not Available [address] [place], [address] 06/25/2023 02:06:32 06/25/19 24 06/25/2023 ARTER IAL BLOOD GAS HCO3 10 mmol/ L 22- low Not Available [address] [place], [address] 06/25/2023 02:06:32 06/25/19 24 06/25/2023 BASIC METAB OLIC PANEL calcium 7.8 mg/dL 8.5-10 .1 low Not Available [address] [place], [address] 06/25/2023 02:11:32 06/25/19 24 06/25/2023 BASIC METAB OLIC PANEL glucose 124 mg/dL 74-106 high Not Available Caro gutierres [address] [place], [address] 06/25/2023 02:11:32 06/25/19 24 06/25/2023 BASIC METAB OLIC PANEL BUN 40 mg/dL 7-18 high Not Available Caro gutierres [address] [place], [address] 06/25/2023 02:11:32 06/25/19 24 06/25/2023 BASIC METAB OLIC PANEL creatinine 2.5 mg/dL 0.70-1 .30 high Not Available [address] [place], [address] 06/25/2023 02:11:32 06/25/19 24 06/25/2023 BASIC METAB OLIC PANEL estimated GFR 27.30 mL/min /1.73m 2 The eGFR is calcu lated from a serum creat inine using the CKD-E PI 2020 equat ion. Other varia bles requi red for the equat ion are gende r and age; this equat ion does not inclu de a race coeff icien t. This equat ion has simil ar overa ll perfo rmanc e to previ ous equat ions excep t value s may diffe r, in parti cular , in patie nts with highe r value s of eGFR and young er-ag ed adult s. Not Available [address] [place], [address] 06/25/2023 02:11:32 06/25/19 24 06/25/2023 BASIC METAB OLIC PANEL sodium 125 mmol/ L 136-14 5 low Not Available [address] [place], [address] 06/25/2023 02:11:32 06/25/19 24 06/25/2023 BASIC METAB OLIC PANEL potassium 7.9 mmol/ L 3.5-5. 1 panic high Criti hillary value GINA RUBI repor bal to and readb ack from JASBIR LUCERO RN (ICU) at 0208 06/24 by LAB.B ONC Not Available [address] [place], [address] 06/25/2023 02:11:32 06/25/19 24 06/25/2023 BASIC METAB OLIC PANEL chloride 93 mmol/ L 98-107 low Not Available [address] [place], [address] 06/25/2023 02:11:32 06/25/19 24 06/25/2023 BASIC METAB OLIC PANEL CO2 11.6 mmol/ L 21.0-3 2.0 low Not Available [address] [place], [address] 06/25/2023 02:11:32 06/25/19 24 06/25/2023 BASIC METAB OLIC PANEL anion gap 20.4 mmol/ L 3-11 high Not Available [address] [place], [address] 06/25/2023 02:11:32 06/25/19 24 06/25/2023 ARTER IAL BLOOD GAS site Arteri al Line Not Available Eduardo wells [address] [place], [address] 06/25/2023 03:34:37 06/25/19 24 06/25/2023 ARTER IAL BLOOD GAS FiO2 70 % Not Available Caro gutierres [address] [place], [address] 06/25/2023 03:34:37 06/25/19 24 06/25/2023 ARTER IAL BLOOD GAS pH 7.10 7.35-7 .45 critical low Criti hillary value PH repor bal to and readb ack from RHODA CAMACHO RT at 0330 06/24 by LAB.B ONC Not Available [address] [place], [address] 06/25/2023 03:34:37 06/25/19 24 06/25/2023 ARTER IAL BLOOD GAS pCO2 33 mmHg 35-45 low Not Available Caro gutierres [address] [place], [address] 06/25/2023 03:34:37 06/25/19 24 06/25/2023 ARTER IAL BLOOD GAS pO2 197 mmHg 80-105 high Not Available Caro gutierres [address] [place], [address] 06/25/2023 03:34:37 06/25/19 24 06/25/2023 ARTER IAL BLOOD GAS so2 % 95-98 tCO2 canno t be calcu lated when the sO2 is >99.0 %. Not Available [address] [place], [address] 06/25/2023 03:34:37 06/25/19 24 06/25/2023 ARTER IAL BLOOD GAS TCO2 mmol/ L 23-27 VALUE ABOVE REPOR TABLE RANGE >99.0 Not Available [address] [place], [address] 06/25/2023 03:34:37 06/25/19 24 06/25/2023 ARTER IAL BLOOD GAS BE -20 mmol/ L -2-3 low Not Available [address] [place], [address] 06/25/2023 03:34:37 06/25/19 24 06/25/2023 ARTER IAL BLOOD GAS HCO3 10 mmol/ L - low Not Available [address] [place], [address] 06/25/2023 03:34:37 06/25/19 24 06/25/2023 ARTER IAL BLOOD GAS site Arteri al Line Not Available Eduardo wells [address] [place], [address] 06/25/2023 05:31:45 06/25/19 24 06/25/2023 ARTER IAL BLOOD GAS FiO2 55 % Not Available Caro gutierres [address] [place], [address] 06/25/2023 05:31:45 06/25/1906/25/2023 ARTER IAL BLOOD GAS pH 7.17 7.35-7 .45 critical low Criti hillary value PH repor bal to and readb ack from RT KATHY at 0529 06/24 by LAB.B ONC Not Available [address] [place], [address] 06/25/2023 05:31:45 06/25/19 24 06/25/2023 ARTER IAL BLOOD GAS pCO2 27 mmHg 35-45 low Not Available Caro gutierres [address] [place], [address] 06/25/2023 05:31:45 06/25/19 24 06/25/2023 ARTER IAL BLOOD GAS pO2 176 mmHg 80-105 high Not Available Caro gutierres [address] [place], [address] 06/25/2023 05:31:45 06/25/19 24 06/25/2023 ARTER IAL BLOOD GAS so2 % 95-98 VALUE ABOVE REPOR TABLE RANGE >99.0 Not Available [address] [place], [address] 06/25/2023 05:31:45 06/25/19 24 06/25/2023 ARTER IAL BLOOD GAS TCO2 mmol/ L 23-27 tCO2 canno t be calcu lated when the sO2 is >99.0 %. Not Available [address] [place], [address] 06/25/2023 05:31:45 06/25/19 24 06/25/2023 ARTER IAL BLOOD GAS BE -19 mmol/ L -2-3 low Not Available [address] [place], [address] 06/25/2023 05:31:45 06/25/19 24 06/25/2023 ARTER IAL BLOOD GAS HCO3 10 mmol/ L - low Not Available [address] [place], [address] 06/25/2023 05:31:45 06/25/19 24 06/25/2023 LACTA TE lactate 10.8 mmol/ L 0.6-1. 4 panic high Criti hillary value LACTA TE repor bal to and readb ack from JASBIR LUCERO RN (ICU) at 0545 06/24 by LAB.B ONC Not Available [address] [place], [address] 06/25/2023 05:48:45 06/25/19 24 06/25/2023 PROTH ROMBI N TIME prothrombin time 29.8 sec 9.1-11 .1 high Not Available [address] [place], [address] 06/25/2023 05:59:46 06/25/19 24 06/25/2023 PROTH ROMBI N TIME INR 3.3 0.9-1. 1 high Recom martha d INR thera peuti c range s for orall y admin ister ed drugs are as follo ws: -Truman dard Inten sity 2.0 to 3.0 -High er Inten sity 3.0 to 4.5 Not Available [address] [place], [address] 06/25/2023 05:59:46 06/25/19 24 06/25/2023 COMPL ETE BLOOD COUNT NO DIFF WBC 23.58 10_3/ uL 4.4-10 .8 high Not Available [address] [place], [address] 06/25/2023 06:04:46 06/25/19 24 06/25/2023 COMPL ETE BLOOD COUNT NO DIFF RBC 3.66 10_6/ uL 4.36-5 .78 low Not Available [address] [place], [address] 06/25/2023 06:04:46 06/25/19 24 06/25/2023 COMPL ETE BLOOD COUNT NO DIFF HGB 8.8 g/dL 13.5-1 7.5 low Not Available [address] [place], [address] 06/25/2023 06:04:46 06/25/19 24 06/25/2023 COMPL ETE BLOOD COUNT NO DIFF HCT 30.9 % 40.0-5 0.0 low Not Available [address] [place], [address] 06/25/2023 06:04:46 06/25/19 24 06/25/2023 COMPL ETE BLOOD COUNT NO DIFF MCV 84 fL 80-95 normal Not Available Caro gutierres [address] [place], [address] 06/25/2023 06:04:46 06/25/19 24 06/25/2023 COMPL ETE BLOOD COUNT NO DIFF MCH 24.0 pg 27.0-3 3.0 low Not Available [address] [place], [address] 06/25/2023 06:04:46 06/25/19 24 06/25/2023 COMPL ETE BLOOD COUNT NO DIFF MCHC 28.5 % 32.0-3 6.0 low Not Available [address] [place], [address] 06/25/2023 06:04:46 06/25/19 24 06/25/2023 COMPL ETE BLOOD COUNT NO DIFF RDW 20.7 % 11.8-1 4.1 high 2+ ANISO CYTOS IS SEEN. 3+ POIKI LOCYT OSIS SEEN. INCLU ELISSA: HUMERA CELLS AND RBC FRAGM ENTS. Not Available [address] [place], [address] 06/25/2023 06:04:46 06/25/19 24 06/25/2023 COMPL ETE BLOOD COUNT NO DIFF platelet count 156 10_3/ uL 130-40 0 normal Not Available [address] [place], [address] 06/25/2023 06:04:46 06/25/19 24 06/25/2023 COMPL ETE BLOOD COUNT NO DIFF MPV 11.6 fL 8.0-11 .0 high Not Available [address] [place], [address] 06/25/2023 06:04:46 06/25/19 24 06/25/2023 SELVIN IA ammonia 103 umol/ L 11-32 high Not Available [address] [place], [address] 06/25/2023 06:04:48 06/25/19 24 06/25/2023 LIVER PANEL total protein 5.5 g/dL 6.4-8. 2 low Not Available [address] [place], [address] 06/25/2023 06:18:47 06/25/19 24 06/25/2023 LIVER PANEL albumin 2.2 g/dL 3.4-5. 0 low Not Available [address] [place], [address] 06/25/2023 06:18:47 06/25/19 24 06/25/2023 LIVER PANEL bilirubin, total 2.1 mg/dL 0.2-1. 0 high Not Available [address] [place], [address] 06/25/2023 06:18:47 06/25/19 24 06/25/2023 LIVER PANEL alk phos 130 U/L 46-116 high Not Available [facility] [address] [place], [address] 06/25/2023 06:18:47 06/25/19 24 06/25/2023 LIVER PANEL AST > 8000 U/L 15-37 high Not Available [facility] [address] [place], [address] 06/25/2023 06:18:47 06/25/19 24 06/25/2023 LIVER PANEL ALT 2753 U/L 16-63 high Not Available [facility] [address] [place], [address] 06/25/2023 06:18:47 06/25/19 24 06/25/2023 LIVER PANEL bilirubin, conjugated 1.4 mg/dL 0.0-0. 2 high Not Available [address] [place], [address] 06/25/2023 06:18:47 06/25/19 24 06/25/2023 ARTER IAL BLOOD GAS site Arteri al Line LEFT FEMOR AL Not Available [address] [place], [address] 06/25/2023 07:39:51 06/25/19 24 06/25/2023 ARTER IAL BLOOD GAS FiO2 50 % Not Available [facility] [address] [place], [address] 06/25/2023 07:39:51 06/25/19 24 06/25/2023 ARTER IAL BLOOD GAS pH 7.16 7.35-7 .45 critical low Criti hillary value repor bal to and readb ack from Burak BARAJAS at 0732 06/24 by LAB.G AC Not Available [address] [place], [address] 06/25/2023 07:39:51 06/25/19 24 06/25/2023 ARTER IAL BLOOD GAS pCO2 36 mmHg 35-45 normal Not Available [facility] [address] [place] [place], [id number] 06/25/2023 07:39:51 06/25/19 24 06/25/2023 ARTER IAL BLOOD GAS pO2 164 mmHg 80-105 high Not Available Caro gutierres [address] [place], [address] 06/25/2023 07:39:51 06/25/19 24 06/25/2023 ARTER IAL BLOOD GAS so2 > 99 % 95-98 high Not Available Caro gutierres [address] [place], [address] 06/25/2023 07:39:51 06/25/19 24 06/25/2023 ARTER IAL BLOOD GAS TCO2 mmol/ L 23-27 tCO2 CANNO T BE CALCU LATED WHEN sO2 IS >99 % Not Available [address] [place], [address] 06/25/2023 07:39:51 06/25/19 24 06/25/2023 ARTER IAL BLOOD GAS BE -16 mmol/ L -2-3 low Not Available [address] [place], [address] 06/25/2023 07:39:51 06/25/19 24 06/25/2023 ARTER IAL BLOOD GAS HCO3 13 mmol/ L 22-26 low Not Available [address] [place], [address] 06/25/2023 07:39:51 06/25/19 24 06/25/2023 BASIC METAB OLIC PANEL calcium 7.5 mg/dL 8.5-10 .1 low Not Available [address] [place], [address] 06/25/2023 07:49:00 06/25/19 24 06/25/2023 BASIC METAB OLIC PANEL glucose 182 mg/dL 74-106 high Not Available Caro gutierres [address] [place], [address] 06/25/2023 07:49:00 06/25/19 24 06/25/2023 BASIC METAB OLIC PANEL BUN 44 mg/dL 7-18 high Not Available Caro gutierres [address] [place], [address] 06/25/2023 07:49:00 06/25/19 24 06/25/2023 BASIC METAB OLIC PANEL creatinine 2.9 mg/dL 0.70-1 .30 high Not Available [address] [place], [address] 06/25/2023 07:49:00 06/25/19 24 06/25/2023 BASIC METAB OLIC PANEL estimated GFR 22.85 mL/min /1.73m 2 The eGFR is calcu lated from a serum creat inine using the CKD-E PI 2020 equat ion. Other varia bles requi red for the equat ion are gende r and age; this equat ion does not inclu de a race coeff icien t. This equat ion has simil ar overa ll perfo rmanc e to previ ous equat ions excep t value s may diffe r, in parti cular , in patie nts with highe r value s of eGFR and young er-ag ed adult s. Not Available [address] [place], [address] 06/25/2023 07:49:00 06/25/19 24 06/25/2023 BASIC METAB OLIC PANEL sodium 124 mmol/ L 136-14 5 critical low Criti hillary value repor bal to and readb ack from JASBIR LUCERO RN at 07 06/24 by LAB.G ERJ Not Available [address] [place], [address] 06/25/2023 07:49:00 06/25/19 24 06/25/2023 BASIC METAB OLIC PANEL potassium 7.9 mmol/ L 3.5-5. 1 panic high Criti hillary value repor bal to and readb ack from JASBIR LUCERO RN at 07 06/24 by LAB.G ERJ CONTA MINAT ION Not Available [address] [place], [address] 06/25/2023 07:49:00 06/25/19 24 06/25/2023 BASIC METAB OLIC PANEL chloride 92 mmol/ L 98-107 low Not Available [address] [place], [address] 06/25/2023 07:49:00 06/25/19 24 06/25/2023 BASIC METAB OLIC PANEL CO2 14.2 mmol/ L 21.0-3 2.0 low Not Available [address] [place], [address] 06/25/2023 07:49:00 06/25/19 24 06/25/2023 BASIC METAB OLIC PANEL anion gap 17.8 mmol/ L 3-11 high Not Available [address] [place], [address] 06/25/2023 07:49:00 06/25/19 24 06/25/2023 KALE LOPEZ vancomycin, random 29.8 ug/mL No refer ence range estab lishe d Not Available [address] [place], [address] 06/25/2023 08:29:59 06/25/19 24 06/25/2023 VENOU S BLOOD GAS pH (venous) 7.18 7.31-7 .41 critical low Criti hillary value repor bal to and readb ack from JASBIR LUCERO RN at 0925 06/24 by LAB.P ELN Not Available [address] [place], [address] 06/25/2023 12:16:25 06/25/19 24 06/25/2023 VENOU S BLOOD GAS pCO2 (venous) 45 mmHg 41-51 normal Not Available [address] [place], [address] 06/25/2023 12:16:25 06/25/19 24 06/25/2023 VENOU S BLOOD GAS pO2 (venous) 57 mmHg Not Available [address] [place], [address] 06/25/2023 12:16:25 06/25/19 24 06/25/2023 VENOU S BLOOD GAS TCO2 (venous) 17 mmol/ L 24-29 low Not Available [address] [place], [address] 06/25/2023 12:16:25 06/25/19 24 06/25/2023 VENOU S BLOOD GAS HCO3 (venous) 17 mmol/ L 23-28 low Not Available [address] [place], [address] 06/25/2023 12:16:25 06/25/19 24 06/25/2023 VENOU S BLOOD GAS BE (venous) -12 mmol/ L -2-3 low Not Available [address] [place], [address] 06/25/2023 12:16:25 06/25/19 24 06/25/2023 VENOU S BLOOD GAS O2 sat (venous) 83 % Not Available Aramis rich [address] [place], [address] 06/25/2023 12:16:25 06/25/19 24 06/25/2023 SELVIN IA ammonia 53 umol/ L 11-32 high Not Available [address] [place], [address] 06/25/2023 13:21:29 06/25/19 24 06/25/2023 BASIC METAB OLIC PANEL calcium 7.3 mg/dL 8.5-10 .1 low Not Available [address] [place], [address] 06/25/2023 13:40:30 06/25/19 24 06/25/2023 BASIC METAB OLIC PANEL glucose 224 mg/dL 74-106 high Not Available Caro gutierres [address] [place], [address] 06/25/2023 13:40:30 06/25/19 24 06/25/2023 BASIC METAB OLIC PANEL BUN 45 mg/dL 7-18 high Not Available Caro gutierres [address] [place], [address] 06/25/2023 13:40:30 06/25/19 24 06/25/2023 BASIC METAB OLIC PANEL creatinine 3.0 mg/dL 0.70-1 .30 high Not Available [address] [place], [address] 06/25/2023 13:40:30 06/25/19 24 06/25/2023 BASIC METAB OLIC PANEL estimated GFR 21.94 mL/min /1.73m 2 The eGFR is calcu lated from a serum creat inine using the CKD-E PI 2020 equat ion. Other varia bles requi red for the equat ion are gende r and age; this equat ion does not inclu de a race coeff icien t. This equat ion has simil ar overa ll perfo rmanc e to previ ous equat ions excep t value s may diffe r, in parti cular , in patie nts with highe r value s of eGFR and young er-ag ed adult s. Not Available [address] [place], [address] 06/25/2023 13:40:30 06/25/19 24 06/25/2023 BASIC METAB OLIC PANEL sodium 124 mmol/ L 136-14 5 critical low Criti hillary value repor bal to and readb ack from KAT PINEDO ,RN at 0939 06/24 by LAB.G ERJ Not Available [address] [place], [address] 06/25/2023 13:40:30 06/25/19 24 06/25/2023 BASIC METAB OLIC PANEL potassium 7.5 mmol/ L 3.5-5. 1 panic high Criti hillary value repor bal to and readb ack from KAT PINEDO RN at 0939 06/24 by LAB.G ERJ Not Available [address] [place], [address] 06/25/2023 13:40:30 06/25/19 24 06/25/2023 BASIC METAB OLIC PANEL chloride 91 mmol/ L 98-107 low Not Available [address] [place], [address] 06/25/2023 13:40:30 06/25/19 24 06/25/2023 BASIC METAB OLIC PANEL CO2 19.6 mmol/ L 21.0-3 2.0 low Not Available [address] [place], [address] 06/25/2023 13:40:30 06/25/19 24 06/25/2023 BASIC METAB OLIC PANEL anion gap 13.4 mmol/ L 3-11 high Not Available [address] [place], [address] 06/25/2023 13:40:30 06/25/19 24 06/25/2023 PHOSP HORUS phosphorus 7.4 mg/dL 2.6-4. 7 high Not Available [address] [place], [address] 06/25/2023 13:40:31 06/25/19 24 06/25/2023 MAGNE SIUM magnesium 1.8 mg/dL 1.8-2. 4 normal Not Available [address] [place], [address] 06/25/2023 13:40:31 06/25/19 24 06/25/2023 PROTH ROMBI N TIME prothrombin time 30.1 sec 9.1-11 .1 high Not Available [address] [place], [address] 06/25/2023 15:54:33 06/25/19 24 06/25/2023 PROTH ROMBI N TIME INR 3.3 0.9-1. 1 high Recom martha d INR thera peuti c range s for orall y admin ister ed drugs are as follo ws: -Truman dard Inten sity 2.0 to 3.0 -High er Inten sity 3.0 to 4.5 Not Available [address] [place], [address] 06/25/2023 15:54:33 06/25/19 24 06/25/2023 PTT ACTIV ATED PTT activated 37.7 sec 23.6-3 2.8 high Hepar in Thera peuti c Range for PTT = 52-84 secon ds New Hepar in Thera peuti c Range 04/10 Not Available [address] [place], [address] 06/25/2023 15:54:33 06/25/19 24 06/25/2023 D-DIM ER D-dimer 2656 NG/ml feu <500 high *Lite ratur e suppo rts the exclu shivani of DVT and/o r PE with a resul t less than 500 ng/ml FEU with this metho d.* Not Available [address] [place], [address] 06/25/2023 15:54:34 06/25/19 24 06/25/2023 LAB ADD ON TEST lab add on test COMPLE BAL UNABL E TO ADD ON. SEE ORDER 0422: CH57 Not Available [address] [place], [address] 06/25/2023 17:13:38 06/25/19 24 06/26/2023 BLOOD CULTU RE ( AGE => 10 YRS) blood culture ( age => 10 yrs) Blood Cultu re ( Age => 10 Yrs) NO GROWT H 24 HOURS Not Available [address] [place], [address] 06/26/2023 03:58:51 06/25/19 24 06/25/2023 HIV-1 /2 AG AB SCREE N HIV-1/2 Ag Ab screen Negati ve negati ve If acute HIV-1 infec tion is suspe cted in a high risk patie nt, submi t plasm a speci men for HIV-1 RNA quant itati on test. Fourt h Gener ation [facility]. Test perfo rmed or refer red by [facility] [address] [place] [address] Not Available [address] [place], [address] 06/26/2023 08:53:52 06/25/19 24 06/27/2023 BLOOD CULTU RE ( AGE => 10 YRS) blood culture ( age => 10 yrs) Blood Cultu re ( Age => 10 Yrs) NO GROWT H 48 HOURS Not Available [address] [place], [address] 06/27/2023 03:59:21 06/25/19 24 06/28/2023 BLOOD CULTU RE ( AGE => 10 YRS) blood culture ( age => 10 yrs) Blood Cultu re ( Age => 10 Yrs) NO GROWT H 72 HOURS Not Available [address] [place], [address] 06/28/2023 03:57:37 06/25/19 06/29/2023 BLOOD CULTU RE ( AGE => 10 YRS) blood culture ( age => 10 yrs) Blood Cultu re ( Age => 10 Yrs) NO GROWT H 96 HOURS Not Available [address] [place], [address] 06/29/2023 03:55:50 06/25/19 24 06/30/2023 BLOOD CULTU RE ( AGE => 10 YRS) blood culture ( age => 10 yrs) Blood Cultu re ( Age => 10 Yrs) NO GROWT H 120 HOURS Not Available [address] [place], [address] 06/30/2023 03:57:44 08/27/1908/27/2023 COMPL ETE BLOOD COUNT W/DIF F WBC 8.51 10_3/ uL 4.4-10 .8 normal Not Available [address] [place], [address] 08/27/2023 18:38:07 08/27/1908/27/2023 COMPL ETE BLOOD COUNT W/DIF F RBC 4.16 10_6/ uL 4.36-5 .78 low Not Available [address] [place], [address] 08/27/2023 18:38:07 08/27/1908/27/2023 COMPL ETE BLOOD COUNT W/DIF F HGB 12.9 g/dL 13.5-1 7.5 low Not Available [address] [place], [address] 08/27/2023 18:38:07 08/27/19 24 08/27/2023 COMPL ETE BLOOD COUNT W/DIF F HCT 41.6 % 40.0-5 0.0 normal Not Available [address] [place], [address] 08/27/2023 18:38:07 08/27/1908/27/2023 COMPL ETE BLOOD COUNT W/DIF F MCV 100 fL 80-95 high Not Available [address] [place], [address] 08/27/2023 18:38:07 08/27/1908/27/2023 COMPL ETE BLOOD COUNT W/DIF F MCH 31.0 pg 27.0-3 3.0 normal Not Available [address] [place], [address] 08/27/2023 18:38:07 08/27/19 24 08/27/2023 COMPL ETE BLOOD COUNT W/DIF F MCHC 31.0 % 32.0-3 6.0 low Not Available [address] [place], [address] 08/27/2023 18:38:07 08/27/19 24 08/27/2023 COMPL ETE BLOOD COUNT W/DIF F RDW 17.6 % 11.8-1 4.1 high Not Available [address] [place], [address] 08/27/2023 18:38:07 08/27/19 24 08/27/2023 COMPL ETE BLOOD COUNT W/DIF F platelet count 378 10_3/ uL 130-40 0 normal Not Available [address] [place], [address] 08/27/2023 18:38:07 08/27/19 24 08/27/2023 COMPL ETE BLOOD COUNT W/DIF F MPV 10.3 fL 8.0-11 .0 normal Not Available [address] [place], [address] 08/27/2023 18:38:07 08/27/19 24 08/27/2023 COMPL ETE BLOOD COUNT W/DIF F neutrophils % 71.7 % Not Available [address] [place], [address] 08/27/2023 18:38:07 08/27/19 24 08/27/2023 COMPL ETE BLOOD COUNT W/DIF F lymphocytes % 16.6 % Not Available [address] [place], [address] 08/27/2023 18:38:07 08/27/19 24 08/27/2023 COMPL ETE BLOOD COUNT W/DIF F monocytes % 6.6 % Not Available [address] [place], [address] 08/27/2023 18:38:07 08/27/19 24 08/27/2023 COMPL ETE BLOOD COUNT W/DIF F eosinophils % 3.2 % Not Available [address] [place], [address] 08/27/2023 18:38:07 08/27/19 24 08/27/2023 COMPL ETE BLOOD COUNT W/DIF F basophils % 1.4 % Not Available [address] [place], [address] 08/27/2023 18:38:07 08/27/19 24 08/27/2023 COMPL ETE BLOOD COUNT W/DIF F immature grans % 0.5 % Not Available [address] [place], [address] 08/27/2023 18:38:07 08/27/19 24 08/27/2023 COMPL ETE BLOOD COUNT W/DIF F nucleated RBC 0.0 % 0.0-0. 3 normal Not Available [address] [place], [address] 08/27/2023 18:38:07 08/27/19 24 08/27/2023 COMPL ETE BLOOD COUNT W/DIF F absolute neutrophil count 6.11 10_3/ uL 1.2-6. 7 normal Not Available [address] [place], [address] 08/27/2023 18:38:07 08/27/19 24 08/27/2023 COMPL ETE BLOOD COUNT W/DIF F absolute lymphocyte count 1.41 10_3/ uL 1.2-3. 4 normal Not Available [address] [place], [address] 08/27/2023 18:38:07 08/27/19 24 08/27/2023 COMPL ETE BLOOD COUNT W/DIF F absolute monocyte count 0.56 10_3/ uL 0.1-0. 8 normal Not Available [address] [place], [address] 08/27/2023 18:38:07 08/27/19 24 08/27/2023 COMPL ETE BLOOD COUNT W/DIF F absolute eosinophil count 0.27 10_3/ uL 0.0-0. 7 normal Not Available [address] [place], [address] 08/27/2023 18:38:07 08/27/19 24 08/27/2023 COMPL ETE BLOOD COUNT W/DIF F absolute basophil count 0.12 10_3/ uL 0.0-0. 2 normal Not Available [address] [place], [address] 08/27/2023 18:38:07 08/27/19 24 08/27/2023 HEMOG LOBIN A1C hemoglobin A1C 5.2 % <5.7 Refer ence Range s <5.7 Radha l 5.7-6 .4% Predi abete s 6.5% or great er Diagn ostic for diabe orquidea (if confi rmed) Refer ences : 1. Ameri can Diabe orquidea Assoc iatio n. Clas sific ation and Diagn osis of Diabe orquidea. Diabe orquidea [facility] 2018; 2(Sup pleme nt 1):S1 3-s28 . Not Available [address] [place], [address] 08/27/2023 18:56:09 08/27/19 24 08/27/2023 IRON AND IBCT iron 127 ug/dL 65-175 normal Not Available Caro [address] [place], [address] 08/27/2023 19:21:24 08/27/19 24 08/27/2023 IRON AND IBCT total iron binding capacity 303 ug/dL 250-45 0 normal Not Available [address] [place], [address] 08/27/2023 19:21:24 08/27/19 24 08/27/2023 IRON AND IBCT transferrin sat 42 % 20-55 normal Not Available Aramis rich [address] [place], [address] 08/27/2023 19:21:24 08/27/19 24 08/27/2023 COMPR EHENS RIA METAB OLIC PANEL calcium 9.2 mg/dL 8.5-10 .1 normal Not Available [address] [place], [address] 08/27/2023 20:16:31 08/27/19 24 08/27/2023 COMPR EHENS RIA METAB OLIC PANEL glucose 121 mg/dL 74-106 high Not Available Caro gutierres [address] [place], [address] 08/27/2023 20:16:31 08/27/19 24 08/27/2023 COMPR EHENS RIA METAB OLIC PANEL BUN 18 mg/dL 7-18 normal Not Available Caro gutierres [address] [place], [address] 08/27/2023 20:16:31 08/27/1908/27/2023 COMPR EHENS RIA METAB OLIC PANEL creatinine 1.7 mg/dL 0.70-1 .30 high Not Available [address] [place], [address] 08/27/2023 20:16:31 08/27/19 24 08/27/2023 COMPR EHENS RIA METAB OLIC PANEL estimated GFR 43.37 mL/min /1.73m 2 The eGFR is calcu lated from a serum creat inine using the CKD-E PI 2020 equat ion. Other varia bles requi red for the equat ion are gende r and age; this equat ion does not inclu de a race coeff icien t. This equat ion has simil ar overa ll perfo rmanc e to previ ous equat ions excep t value s may diffe r, in parti cular , in patie nts with highe r value s of eGFR and young er-ag ed adult s. Not Available [address] [place], [address] 08/27/2023 20:16:31 08/27/19 24 08/27/2023 COMPR EHENS RIA METAB OLIC PANEL total protein 8.3 g/dL 6.4-8. 2 high Not Available [address] [place], [address] 08/27/2023 20:16:31 08/27/19 24 08/27/2023 COMPR EHENS RIA METAB OLIC PANEL albumin 3.3 g/dL 3.4-5. 0 low Not Available [address] [place], [address] 08/27/2023 20:16:31 08/27/19 24 08/27/2023 COMPR EHENS RIA METAB OLIC PANEL bilirubin, total 0.79 mg/dL 0.2-1. 0 normal Not Available [address] [place], [address] 08/27/2023 20:16:31 08/27/19 24 08/27/2023 COMPR EHENS RIA METAB OLIC PANEL alk phos 77 U/L 46-116 normal Not Available [address] [place], [address] 08/27/2023 20:16:31 08/27/19 24 08/27/2023 COMPR EHENS RIA METAB OLIC PANEL sodium 142 mmol/ L 136-14 5 normal Not Available [address] [place], [address] 08/27/2023 20:16:31 08/27/19 24 08/27/2023 COMPR EHENS RIA METAB OLIC PANEL potassium 3.2 mmol/ L 3.5-5. 1 low Not Available [address] [place], [address] 08/27/2023 20:16:31 08/27/19 24 08/27/2023 COMPR EHENS RIA METAB OLIC PANEL chloride 101 mmol/ L 98-107 normal Not Available [address] [place], [address] 08/27/2023 20:16:31 08/27/19 24 08/27/2023 COMPR EHENS RIA METAB OLIC PANEL CO2 30.6 mmol/ L 21.0-3 2.0 normal Not Available [address] [place], [address] 08/27/2023 20:16:31 08/27/19 24 08/27/2023 COMPR EHENS RIA METAB OLIC PANEL anion gap 10.4 mmol/ L 3-11 normal Not Available [address] [place], [address] 08/27/2023 20:16:31 08/27/19 24 08/27/2023 COMPR EHENS RIA METAB OLIC PANEL AST 21 U/L 15-37 normal Not Available Caro gutierres [address] [place], [address] 08/27/2023 20:16:31 08/27/19 24 08/27/2023 COMPR EHENS RIA METAB OLIC PANEL ALT 17 U/L 16-63 normal Not Available Caro [address] [place], [address] 08/27/2023 20:16:31 08/27/19 24 08/27/2023 CECI TIN ferritin 124 NG/mL 26-388 normal Not Available [address] [place], [address] 08/27/2023 19:26:15 08/27/19 24 08/27/2023 MAGNE SIUM magnesium 1.7 mg/dL 1.8-2. 4 low Not Available [address] [place], [address] 08/27/2023 19:26:16 08/27/19 24 08/27/2023 TSH (W/RE F FT4) TSH (w/ref FT4) 8.36 uIU/m L 0.36-3 .74 high Not Available [address] [place], [address] 08/27/2023 19:26:16 08/27/19 24 08/27/2023 VITAM IN B12 vitamin B12 1024 pg/mL 193-98 6 high Not Available [address] [place], [address] 08/27/2023 19:26:17 08/27/19 24 08/27/2023 FOLAT E folate > 20.0 NG/mL 8.6-20 .0 high Not Available [address] [place], [address] 08/27/2023 19:26:17 08/27/19 24 08/27/2023 VITAM IN D 25 TOTAL vitamin D 25 total 64.6 NG/mL 30-100 normal Refer ence Guide lines : Defic ient: <10 ng/ml Insuf ficie nt: 10-30 ng/ml Suffi cient : 30-10 0 ng/ml Toxic : >100 ng/ml Not Available [address] [place], [address] 08/27/2023 20:16:34 08/27/19 24 08/27/2023 CECI TIN ferritin 124 NG/mL 26-388 normal Not Available [address] [place], [address] 08/27/2023 20:16:32 08/27/19 24 08/27/2023 MAGNE SIUM magnesium 1.7 mg/dL 1.8-2. 4 low Not Available [address] [place], [address] 08/27/2023 20:16:32 08/27/19 24 08/27/2023 TSH (W/RE F FT4) TSH (w/ref FT4) 8.36 uIU/m L 0.36-3 .74 high Not Available [address] [place], [address] 08/27/2023 20:16:33 08/27/19 24 08/27/2023 FREE T4 free T4 0.83 NG/dL 0.76-1 .46 normal Not Available [address] [place], [address] 08/27/2023 20:16:33 08/27/19 24 08/27/2023 VITAM IN B12 vitamin B12 1024 pg/mL 193-98 6 high Not Available [address] [place], [address] 08/27/2023 20:16:33 08/27/19 24 08/27/2023 FOLAT E folate > 20.0 NG/mL 8.6-20 .0 high Not Available [address] [place], [address] 08/27/2023 20:16:34 08/27/19 24 08/27/2023 NT-AZ OBNP nt-probnp 3003 pg/mL <300 high NT-pr oBNP value s <300 pg/mL have a 98% negat ria predi ctive value for exclu ding acute conge stive heart failu re (CHF) . NT-pr oBNP value s >450 pg/mL are consi stent with CHF in adult s <50 years of age. A diagn ostic cut-o ff of 900 pg/mL has been sugge sted in adult s >50 years of age in the absen ce of renal failu re. A cut-o ff of 1200 pg/mL for patie nts with an eGFR less than 60 yield s a diagn ostic sensi tivit y and speci ficit y of 89% and 72% for acute conge stive failu re. NOTE: Supra -phys iolog ic doses of Bioti n(B7) may cause false negat ria resul ts. Not Available [address] [place], [address] 08/27/2023 20:16:35 09/11/19 24 09/11/2023 COMPR EHENS RIA METAB OLIC PANEL calcium 9.2 mg/dL 8.5-10 .1 normal Not Available [address] [place], [address] 09/11/2023 16:22:03 09/11/19 24 09/11/2023 COMPR EHENS RIA METAB OLIC PANEL glucose 141 mg/dL 74-106 high Not Available Caro gutierres [address] [place], [address] 09/11/2023 16:22:03 09/11/19 24 09/11/2023 COMPR EHENS RIA METAB OLIC PANEL BUN 13 mg/dL 7-18 normal Not Available Caro gutierres [address] [place], [address] 09/11/2023 16:22:03 09/11/19 24 09/11/2023 COMPR EHENS RIA METAB OLIC PANEL creatinine 1.3 mg/dL 0.70-1 .30 normal Not Available [address] [place], [address] 09/11/2023 16:22:03 09/11/19 24 09/11/2023 COMPR EHENS RIA METAB OLIC PANEL estimated GFR 59.84 mL/min /1.73m 2 The eGFR is calcu lated from a serum creat inine using the CKD-E PI 2020 equat ion. Other varia bles requi red for the equat ion are gende r and age; this equat ion does not inclu de a race coeff icien t. This equat ion has simil ar overa ll perfo rmanc e to previ ous equat ions excep t value s may diffe r, in parti cular , in patie nts with highe r value s of eGFR and young er-ag ed adult s. Not Available [address] [place], [id number] 09/11/2023 16:22:03 09/11/19 24 09/11/2023 COMPR EHENS RIA METAB OLIC PANEL total protein 7.4 g/dL 6.4-8. 2 normal Not Available [address] [place], [address] 09/11/2023 16:22:03 09/11/19 24 09/11/2023 COMPR EHENS RIA METAB OLIC PANEL albumin 3.2 g/dL 3.4-5. 0 low Not Available [address] [place], [address] 09/11/2023 16:22:03 09/11/19 24 09/11/2023 COMPR EHENS RIA METAB OLIC PANEL bilirubin, total 0.52 mg/dL 0.2-1. 0 normal Not Available [address] [place], [address] 09/11/2023 16:22:03 09/11/19 24 09/11/2023 COMPR EHENS RIA METAB OLIC PANEL alk phos 81 U/L 46-116 normal Not Available [address] [place], [id number] 09/11/2023 16:22:03 09/11/19 24 09/11/2023 COMPR EHENS RIA METAB OLIC PANEL sodium 139 mmol/ L 136-14 5 normal Not Available [address] [place], [address] 09/11/2023 16:22:03 09/11/19 24 09/11/2023 COMPR EHENS RIA METAB OLIC PANEL potassium 4.4 mmol/ L 3.5-5. 1 normal Not Available [address] [place], [address] 09/11/2023 16:22:03 09/11/19 24 09/11/2023 COMPR EHENS RIA METAB OLIC PANEL chloride 107 mmol/ L 98-107 normal Not Available [address] [place], [address] 09/11/2023 16:22:03 09/11/19 24 09/11/2023 COMPR EHENS RIA METAB OLIC PANEL CO2 20.6 mmol/ L 21.0-3 2.0 low Not Available [address] [place], [address] 09/11/2023 16:22:03 09/11/19 24 09/11/2023 COMPR EHENS RIA METAB OLIC PANEL anion gap 11.4 mmol/ L 3-11 high Not Available [address] [place], [address] 09/11/2023 16:22:03 09/11/19 24 09/11/2023 COMPR EHENS RIA METAB OLIC PANEL AST 15 U/L 15-37 normal Not Available [facility] [address] [place], [address] 09/11/2023 16:22:03 09/11/19 24 09/11/2023 COMPR EHENS RIA METAB OLIC PANEL ALT 15 U/L 16-63 low Not Available Caro gutierres [address] [place], [address] 09/11/2023 16:22:03 09/11/19 24 09/11/2023 TSH (W/RE F FT4) TSH (w/ref FT4) 6.63 uIU/m L 0.36-3 .74 high Not Available [address] [place], [address] 09/11/2023 16:22:04 09/11/19 24 09/11/2023 COMPL ETE BLOOD COUNT NO DIFF WBC 7.27 10_3/ uL 4.4-10 .8 normal Not Available [address] [place], [address] 09/11/2023 16:41:02 09/11/19 24 09/11/2023 COMPL ETE BLOOD COUNT NO DIFF RBC 4.09 10_6/ uL 4.36-5 .78 low Not Available [address] [place], [address] 09/11/2023 16:41:02 09/11/19 24 09/11/2023 COMPL ETE BLOOD COUNT NO DIFF HGB 12.7 g/dL 13.5-1 7.5 low Not Available [address] [place], [address] 09/11/2023 16:41:02 09/11/19 24 09/11/2023 COMPL ETE BLOOD COUNT NO DIFF HCT 39.4 % 40.0-5 0.0 low Not Available [address] [place], [address] 09/11/2023 16:41:02 09/11/19 24 09/11/2023 COMPL ETE BLOOD COUNT NO DIFF MCV 96 fL 80-95 high Not Available [address] [place], [address] 09/11/2023 16:41:02 09/11/19 24 09/11/2023 COMPL ETE BLOOD COUNT NO DIFF MCH 31.1 pg 27.0-3 3.0 normal Not Available [address] [place], [address] 09/11/2023 16:41:02 09/11/19 24 09/11/2023 COMPL ETE BLOOD COUNT NO DIFF MCHC 32.2 % 32.0-3 6.0 normal Not Available [address] [place], [address] 09/11/2023 16:41:02 09/11/19 24 09/11/2023 COMPL ETE BLOOD COUNT NO DIFF RDW 16.6 % 11.8-1 4.1 high Not Available [address] [place], [address] 09/11/2023 16:41:02 09/11/19 24 09/11/2023 COMPL ETE BLOOD COUNT NO DIFF platelet count 252 10_3/ uL 130-40 0 normal Not Available [address] [place], [address] 09/11/2023 16:41:02 09/11/19 24 09/11/2023 COMPL ETE BLOOD COUNT NO DIFF MPV 10.3 fL 8.0-11 .0 normal Not Available [address] [place], [address] 09/11/2023 16:41:02 09/11/19 24 09/11/2023 TSH (W/RE F FT4) TSH (w/ref FT4) 6.63 uIU/m L 0.36-3 .74 high Not Available [address] [place], [address] 09/11/2023 16:47:07 09/11/19 24 09/11/2023 FREE T4 free T4 0.89 NG/dL 0.76-1 .46 normal Not Available [address] [facility] [place], [address] 09/11/2023 16:47:08 06/21/19 24 06/21/2023 x-ray imagi marsha carline caraballo [facility] Unit #: [id number] Loc: MS Hermilo Lee er: Cole Trent M.D. Accoun t #: [id number] Status : ADM IN Primil y [facility] er: Argentina Gill M.D. Date of Exam : Sex: M Admiss ion Date: : 1955 Age: 68 Exam(s ) XR PORTAB LE CHEST AP EXAM: XR PORTAB LE CHEST AP CLINIC AL HISTOR Y: SOB TECHNI QUE: 2D digita l imagin g was perfor med. COMPAR MONICA: CR XR PORTAB LE CHEST AP from 2021 FINDIN GS: Exam is limite d by poor Perma pulmon giovanni inflat ion. LUNGS: Clear. No pleura l abnorm ality seen. HEART: Enlarg ed, unchan ged AORTA: Normal diamet er. BONES: Left should er prosth esis. Degene rative change s in the thorac ic spine. Soft tissue s: Unrema rkable . IMPRES SHIVANI: No acute findin gs. DATA REPOSI TORY: RADIAT ION DOSE DELIVE RED: Ordere d By: Cole Trent M.D. CC: ------ ------ ------ ------ ------ ------ ------ ------ ------ ------ ------ ------ - Dictat ed By: Richie Guzman 1705 Transc ribed By: Guilherme Chau 1705 This is privil eged, confid ential inform ation intend ed only for the provid er named. Any use or distri bution by any person other than this provid er is strict ly prohib ited. If you receiv e this report in error, please notify us immedi ately at and return the origin al report to us at the addres s above. Thank- you. [facility] [address], [place], [address] 06/21/2023 17:35:43 06/24/19 24 06/24/2023 vrad carline Winters t [facility] Unit #: [id number] Loc: ICU Orderi ng Provid er: Accoun t #: [id number] Status : ADM IN Primar y Care Provid er: Argentina Gill M.D. Date of Exam : Sex: M : 1955 Age: 68 Exam(s ) PROCED URE INFORM ATION: Exam: XR Chest Exam date and time: 024 10:24 PM Age: 68 years old Clinic al indica tion: Other vascul ar access device placem ent or adjust ment; Other: Right ij placem ent TECHNI QUE: Imagin g protoc ol: Radiol ogic exam of the chest. Views: 1 view. COMPAR MONICA: CR XR PORTAB LE CHEST AP 024 4:58 PM FINDIN GS: Limita tions: Portio ns of the pulmon giovanni parenc hyma are obscur ed second giovanni to overly ing medica l equipm ent. Tubes, cathet ers and device s: There is a right- sided line with tip overly ing the SVC. Just medial to the distal aspect of this line, a 1.4 cm linear densit y is identi fied for which a cathet er fragme nt is not exclud ed. A repeat examin ation is recomm ended. Lungs: There is poor visual izatio n of the right costop hrenic angle sugges tive of effusi on. There is right lower lung opacif icatio n, worris ome for airspa ce diseas e such as pneumo bonifacio. There is volume loss to the right lung is well. A probab le right- sided calcif ied granul tyrell is seen overly ing the right lower lung, unchan ged. Pleura l spaces : No pneumo thorax . Heart/ Medias tinum: There is cardio megaly and medias tinal wideni ng, increa sed from prior examin ation. Differ ences in techni que/ro tation may be contri buting howeve r clinic al correl ation is recomm ended. If there is concer n for acute medias tinal, vascul ar, or cardia c abnorm ality, CTA is recomm ended. Bones/ joints : There are skelet al degene rative change s. A left revers e should er arthro plasty is seen. IMPRES SHIVANI: 1. Limita tions as discus sed above. 2.Ther e is a right- sided line with tip overly ing the SVC. Just medial to the distal aspect of this line, a 1.4 cm linear densit y is identi fied for which a cathet er fragme nt or other abnorm ality is not exclud ed. A repeat examin ation is recomm ended. 3. There is poor visual izatio n of the right costop hrenic angle sugges tive of effusi on. There is right lower lung opacif icatio n, worris ome for airspa ce diseas e such as pneumo bonifacio. There is volume loss to the right lung is well. 4. There is cardio megaly and medias tinal wideni ng, increa sed from prior examin ation. Differ ences in techni que/ro tation may be contri buting howeve r clinic al correl ation is recomm ended. If there is concer n for acute medias tinal, vascul ar, or cardia c abnorm ality, CTA is recomm ended. Other findin gs/det ails as above. Dictat ed and Authen ticate d by: Gallito wells MD. Orderi ng:Lily Arthur MD Access ion#=[id number] Ordere d By: CC: ------ ------ ------ ------ ------ ------ ------ ------ ------ ------ ------ ------ ---- Dictat ed By: Report s vrad 2223 Transc ribed By: Di Merge 2223 This is privil eged, confid ential inform ation intend ed only for the provid er named. Any use or distri bution by any person other than this provid er is strict ly prohib ited. If you receiv e this report in error, please notify us immedi ately at and return the origin al report to us at the addres s above. Thank- you. [facility] [address], [place], [address] 06/25/2023 07:07:00 06/24/19 24 06/24/2023 vrad repor t Patien t [facility] Unit #: [id number] Loc: ICU Orderi ng Provid er: Accoun t #: [id number] Status : ADM IN Primar y Care Provid er: Argentina Gill M.D. Date of Exam : Sex: M : 1955 Age: 68 Exam(s ) Addend um create d by Gallito wells MD on 11:52: 59 PM EDT: THIS REPORT CONTAI NS FINDIN GS THAT MAY BE CRITIC AL TO PATIEN T CARE. The findin gs were verbal ly commun icated via teleph one confer ence with ALLISON RAY at 11:52 PM EDT on . The findin gs were acknow ledged and unders tood. Initia l report create d on 11:21: 47 PM EDT: PROCED URE INFORM ATION: Exam: XR Chest Exam date and time: 10:24 PM Age: 68 years old Clinic al indica tion: Other vascul ar access device placem ent or adjust ment; Other: Right ij placem ent TECHNI QUE: Imagin g protoc ol: Radiol ogic exam of the chest. Views: 1 view. COMPAR MONICA: CR XR PORTAB LE CHEST AP 4:58 PM FINDIN GS: Limita tions: Portio ns of the pulmon giovanni parenc hyma are obscur ed second giovanni to overly ing medica l equipm ent. Tubes, cathet ers and device s: There is a right- sided line with tip overly ing the SVC. Just medial to the distal aspect of this line, a 1.4 cm linear densit y is identi fied for which a cathet er fragme nt is not exclud ed. A repeat examin ation is recomm ended. Lungs: There is poor visual izatio n of the right costop hrenic angle sugges tive of effusi on. There is right lower lung opacif icatio n, worris ome for airspa ce diseas e such as pneumo bonifacio. There is volume loss to the right lung is well. A probab le right- sided calcif ied granul tyrell is seen overly ing the right lower lung, unchan ged. Pleura l spaces : No pneumo thorax . Heart/ Medias tinum: There is cardio megaly and medias tinal wideni ng, increa sed from prior examin ation. Differ ences in techni que/ro tation may be contri buting howeve r clinic al correl ation is recomm ended. If there is concer n for acute medias tinal, vascul ar, or cardia c abnorm ality, CTA is recomm ended. Bones/ joints : There are skelet al degene rative change s. A left revers e should er arthro plasty is seen. IMPRES SHIVANI: 1. Limita tions as discus sed above. 2.Ther e is a right- sided line with tip overly ing the SVC. Just medial to the distal aspect of this line, a 1.4 cm linear densit y is identi fied for which a cathet er fragme nt or other abnorm ality is not exclud ed. A repeat examin ation is recomm ended. 3. There is poor visual izatio n of the right costop hrenic angle sugges tive of effusi on. There is right lower lung opacif icatio n, worris ome for airspa ce diseas e such as pneumo bonifacio. There is volume loss to the right lung is well. 4. There is cardio megaly and medias tinal wideni ng, increa sed from prior examin ation. Differ ences in techni que/ro tation may be contri buting howeve r clinic al correl ation is recomm ended. If there is concer n for acute medias tinal, vascul ar, or cardia c abnorm ality, CTA is recomm ended. Other findin gs/det ails as above. Dictat ed and Payal gordon d by: Gallito wells MD. Orderi ng:Lily Arthur MD Access ion#=[id number] Sybil fabian By: CC: ------ ------ ------ ------ ------ ------ ------ ------ ------ ------ ------ ------ ---- Dictat ed By: Report s vrad 2223 Transc ribed By: Rozina Aguilar 2223 This is privil eged, confid ential inform ation intend ed only for the provid er named. Any use or distri bution by any person other than this provid er is strict ly prohib ited. If you receiv e this report in error, please notify us immedi ately at and return the origin al report to us at the addres s above. Thank- you. [facility] [address] [place], [address] 06/25/2023 07:07:01 06/25/19 24 06/25/2023 vrad repor t Patien t [facility] Unit #: [id number] Loc: ICU Orderi ng Provid er: Accoun t #: [id number] Status : ADM IN Primar y Care Provid er: Argentina Gill M.D. Date of Exam : Sex: M : 1955 Age: 68 Exam(s ) PROCED URE INFORM ATION: Exam: XR Chest Exam date and time: 12:25 AM Age: 68 years old Clinic al indica tion: Device placem ent; Patien t HX: Post intuba tion, questi on ij positi on TECHNI QUE: Imagin g protoc ol: Radiol ogic exam of the chest. Views: 1 view. COMPAR MONICA: XR PORTAB LE CHEST AP POST LINE 10:24 PM FINDIN GS: Tubes, cathet ers and device s: The endotr acheal tube lies in good positi on within the mid trache a. There is a right hospital internship al jugula r centra l venous cathet er [facility]en t [facility] juncti on in good positi on. Lungs: Patchy consol idativ e change s right lower lobe of the lung consis tent with pneumo bonifacio. Atelec tatic change s left lower lobe of the lung may repres ent develo ping inflam matory or infect ious proces s. Granul tyrell presen t within the right lower lobe of the lung. Pleura l spaces : Probab le right pleura l effusi on no defini te left pleura l effusi on. No eviden ce of pneumo thorax . Heart/ Medias tinum: There is modera te to severe cardio megaly . The medias tinum is promin ent. Bones/ joints : There is a revers e total left should er replac ement. Soft tissue s: The soft tissue s of the extrat horaci c region are unrema rkable . IMPRES SHIVANI: 1. There is modera te to severe cardio megaly . 2. Patchy consol idativ e change s right lower lobe of the lung consis tent with pneumo bonifacio. Atelec tatic change s left lower lobe of the lung may repres ent develo ping inflam matory or infect ious proces s. 3. Endotr acheal tube and right hospital internship al jugula r centra l venous cathet er in good positi on. Dictat ed and Authen ticate d by: Prabhjot Ruiz MD. Orderi ng:Lily Arthur MD Access ion#=[id number] Ordere d By: CC: ------ ------ ------ ------ ------ ------ ------ ------ ------ ------ ------ ------ ---- Dictat ed By: Report s vrad 0025 [id number] Transc ribed By: Rozina Merge 0025 This is privil eged, confid ential inform ation intend ed only for the provid er named. Any use or distri bution by any person other than this provid er is strict ly prohib ited. If you receiv e this report in error, please notify us immedi dilan at [phone] and return the origin al report to us at the addres s above. Thank- you. [facility] [address] [place], [address] 06/25/2023 07:07:01 06/25/19 24 06/25/2023 x-ray imagi ng repor t Patien t [facility] Unit #: [id number] Loc: ICU Orderi ng Provid er: Florencio Ray Accoun t #: [id number] Status : ADM IN Primar y Care Provid er: Argentina Gill M.D. Date of Exam : Sex: M Admiss ion Date: : 1955 Age: 68 Exam(s ) XR PORTAB LE CHEST AP POST LINE EXAM: XR PORTAB LE CHEST AP POST LINE CLINIC AL HISTOR Y: Right IJ placem ent TECHNI QUE: 2D digita l imagin g was perfor med of the chest. One image was obtain ed. An AP view was obtain ed. COMPAR MONICA: CR XR PORTAB LE CHEST AP from 2021 CR XR PORTAB LE CHEST AP from 2023 CR,XR XR PORTAB LE CHEST AP POST LINE from 2023 FINDIN GS: MEDIAS TINUM: Normal . HEART: Cardio megaly . PULMON GIOVANNI VASCUL ATURE: Normal . LUNGS: There has been interv al develo pment of a right lung infilt rate. The left lung is clear. PLEURA L SPACE: No pleura l effusi on or pneumo thorax . BONE:W ithin normal limits for the patien t's age. There again seen findin gs of a left total revers e should er replac ement. OTHER FINDIN GS:The re has been interv al placem ent of a right IJ cathet er. The tip of the cathet er is seen at the cavoat rial juncti on. IMPRES SHIVANI: 1. Interv al placem ent of a right IJ cathet er with the tip at the juncti on of the superi or vena cava and right atrium . 2. Interv al develo pment of a right lung infilt rate. This may repres ent pneumo bonifacio or atelec tasis. Please correl ate clinic allian. DATA REPOSI TORY: RADIAT ION DOSE DELIVE RED: Ordere d By: Florencio Ray CC: ------ ------ ------ ------ ------ ------ ------ ------ ------ ------ ------ ------ - Dictat ed By: Ruben Goldsmith M.D. 0728 [id number] Transc ribed By: Ruben Goldsmith 28 This is privil eged, confid ential inform ation intend ed only for the provid er named. Any use or distri bution by any person other than this provid er is strict ly prohib ited. If you receiv e this report in error, please notify us immedi ately at and return the origin al report to us at the addres s above. Thank- you. [facility] [address], [place], [address] 06/25/2023 07:49:43 06/25/19 24 06/25/2023 x-ray imagi ng repor t Singh caraballo [facility] Unit #: [id number] Loc: ICU Orderi ng Provid er: Florencio Ray Accoun t #: [id number] Status : ADM IN Primar y Care Provid er: Argentina Gill M.D. Date of Exam : Sex: M Admiss ion Date: : 1955 Age: 68 Exam(s ) XR PORTAB LE CHEST AP POST LINE EXAM: XR PORTAB LE CHEST AP POST LINE CLINIC AL HISTOR Y: Acute findin gs with questi onable artifa ct. TECHNI QUE: 2D digita l imagin g was perfor med of the chest. Two images were obtain ed. PA views were obtain ed. COMPAR MONICA: CR,XR XR PORTAB LE CHEST AP POST LINE from 2023 FINDIN GS: MEDIAS TINUM: Normal . HEART: Cardio megaly . PULMON GIOVANNI VASCUL ATURE: Normal . LUNGS: There is again seen a right basila r infilt rate. The left lung remain s clear. PLEURA L SPACE: No pleura l effusi on or pneumo thorax . BONE:W ithin normal limits for the patien t's age. Left total revers e should er replac ement. OTHER FINDIN GS:The tip of the right IJ cathet er is in good positi on at the cavoat rial juncti on. There has been interv al placem ent of a endotr acheal tube. The tip of the tube is 5 cm above the sidra . IMPRES SHIVANI: 1. The endotr acheal and right IJ cathet er are in good positi on. 2. Persis tent right basila r infilt rate which may repres ent pneumo bonifacio. DATA REPOSI TORY: RADIAT ION DOSE DELIVE RED: Ordere d By: Florencio Ray CC: ------ ------ ------ ------ ------ ------ ------ ------ ------ ------ ------ ------ - Dictat ed By: Ruben Goldsmith M.D. 732 Transc ribed By: Ruben Goldsmith 732 This is privil eged, confid ential inform ation intend ed only for the provid er named. Any use or distri bution by any person other than this provid er is strict ly prohib ited. If you receiv e this report in error, please notify us immedi ately at and return the origin al report to us at the addres s above. Thank- you. [facility] [address], [place], [address] 06/25/2023 07:49:43 06/25/19 24 06/25/2023 vrad repor t Patien t Name: Aniket vance,[facility] Unit #: [id number] Loc: ICU Orderi ng Provid er: Accoun t #: [id number] Status : ADM IN Primar y Care Provid er: Argentina Gill M.D. Date of Exam : Sex: M : 1955 Age: 68 Exam(s ) PROCED URE INFORM ATION: Exam: XR Chest Exam date and time: 024 12:31 AM Age: 68 years old Clinic al indica tion: Other: Pleura l effion TECHNI QUE: Imagin g protoc ol: Radiol ogic exam of the chest. Views: 1 view. COMPAR MONICA: CR XR PORTAB LE CHEST AP POST LINE 024 12:25 AM FINDIN GS: Tubes, cathet ers and device s: There has been interv al and placem ent of an enteri c tube which course s below the left hemidi aphrag m with its tip projec ting over the body of the stomac h. A right hospital internship al jugula r centra l venous cathet er remain s in place, its tip projec ting over the centra l superi or vena cava. An endotr acheal tube is again identi fied, its tip projec ting approx imatel y 6.6 cm above the sidra . Lungs: Persis tent patchy airspa ce opacit ies throug hout the right mid and lower lung, not signif icantl y change d. No overt pulmon giovanni edema or signif icant vascul ar conges tion. Pleura l spaces : Persis tent small right pleura l effusi on. No pneumo thorax . Heart/ Medias tinum: Stable mild enlarg ement of the cardia c silhou ette. Bones/ joints : Degene rative change s. Revers e left total should er arthro plasty . IMPRES SHIVANI: Interv al placem ent of an enteri c tube, its tip projec ting over the body of the stomac h. Otherw ise no signif icant interv al change . Dictat ed and Payal gordon d by: Mckayla Cr MD. Orderi ng:PRamos Miranda MD Access ion#=[id number] Orderpinky d By: CC: ------ ------ ------ ------ ------ ------ ------ ------ ------ ------ ------ ------ ---- Dictat ed By: Report s vrad [id number] Transc ribed By: Rozina Merge 30 This is privil eged, confid ential inform ation intend ed only for the provid er named. Any use or distri bution by any person other than this provid er is strict ly prohib ited. If you receiv e this report in error, please notify us immmichelle kong at [phone] and return the origin al report to us at the addres s above. Thank- you. [facility] [address] [place], [address] 06/25/2023 17:01:09 06/25/19 24 06/25/2023 x-ray imagi ng repor rashmi caraballo Name: Aniket vance,[facility] Unit #: [id number] Loc: ICU Orderi ng Provid er: Ruben Apodaca Abner DO Ryanrima t #: [id number] Status : ADM IN Primar y Care Provid er: Argentina Gill M.D. Date of Exam : Sex: M Admiss ion Date: : 1955 Age: 68 Exam(s ) XR PORTAB LE CHEST AP EXAM: XR PORTAB LE CHEST AP CLINIC AL HISTOR Y: Right plural effusi on, early consol idatin g proces s TECHNI QUE: 2D digita l imagin g was perfor med of the chest. One image was obtain ed. An AP view was obtain ed. COMPAR MONICA: CR XR PORTAB LE CHEST AP from 2023 CR,XR XR PORTAB LE CHEST AP POST LINE from 2023 CR,XR XR PORTAB LE CHEST AP POST LINE from 2023 FINDIN GS: MEDIAS TINUM: Normal . HEART: Normal . PULMON GIOVANNI VASCUL ATURE: Normal . LUNGS: There are persis tent right basila r infilt rate. There may also be a small right pleura l effusi on. Atelec tatic change s are seen now in the left lung base. PLEURA L SPACE: No left pleura l effusi on. No pneumo thorax . BONE:W ithin normal limits for the patien t's age. OTHER FINDIN GS:The tip of the right IJ cathet er is seen in the superi or vena cava. The tip of the endotr acheal tube is 6 5 cm above the sidra in good positi on. There has been interv al placem ent of an enteri c tube. The tip is seen in the stomac h below the diaphr agm in good positi on. IMPRES SHIVANI: 1. Interv al placem ent of an enteri c tube. The tip is seen below the hemidi aphrag m in the stomac h in good positi on. 2. Stable positi on of the right IJ cathet er and endotr acheal tube. 3. Stable right basila r infilt rate. Left basila r atelec tasis. DATA REPOSI TORY: RADIAT ION DOSE DELIVE RED: Ordere d By: Ruben Apodaca DO CC: ------ ------ ------ ------ ------ ------ ------ ------ ------ ------ ------ ------ - Dictat ed By: Ruben Goldsmith M.D. 808 Transc ribed By: Ruben Goldsmith 808 This is privil eged, confid ential inform ation intend ed only for the provid er named. Any use or distri bution by any person other than this provid er is strict ly prohib ited. If you receiv e this report in error, please notify us immedi ately at and return the origin al report to us at the addres s above. Thank- you. [facility] [address] [place], [address] 06/25/2023 17:01:10 06/25/19 24 06/25/2023 ultra sound imagi ng repor t Patien t Name[facility] Unit #: [id number] Loc: ICU Orderi ng Provid er: Renzo Woods t #: [id number] Status : ADM IN Primar y Care Provid er: Argentina Gill M.D. Date of Exam : Sex: M Admiss ion Date: : 1955 Age: 68 Exam(s ) US ABDOME N EXAM: US ABDOME N CLINIC AL HISTOR Y: progre ssive AST elevat ion, elevat ed INR, conj bili TECHNI QUE: Ultras ound abdome n perfor med using standa rd protoc ol. COMPAR MONICA: CT CT ABDOME N PELVIS W from [address] CHEST PE CTA from 2020 FINDIN GS: ABDOMI NAL AORTA AND IVC: Visual ized portio ns normal calibe r. PANCRE : Normal where visual ized. LIVER: There is a lobula bal contou r of the liver which can be seen with hepati c cirrho sis. The liver measur es 19 cm long. Hepato petal flow in the Portal Vein. GALLBL ADDER: Multip le gallst ones are presen t. No eviden ce of wall thicke rehana. No perich olecys tic fluid identi fied. BILIAR Y SYSTEM : Common bile duct measur es < 7 mm. No intrah epatic biliar y ductal dilati on. GALICIA 'S SIGN: Negati ve. KIDNEY S: Kidney s are symmet chelo in size. No eviden ce of renal calcul i. No eviden ce of hydron ephros is. No renal mass or cyst identi fied. SPLEEN : Not enlarg ed. ASCITE S: There is a small to modera te amount of ascite s around the liver and gallbl adder. IMPRES SHIVANI: 1. There is hepato megaly . There is mildly nodula r contou r of the liver which can be seen with hepati c cirrho sis. Please correl ate clinic ally. 2. Cholel ithias is. 3. Small to modera te amount of ascite s around the liver and gallbl adder. DATA REPOSI TORY: Ordere d By: Renzo Woods CC: KJKeeley [facility] ------ ------ ------ ------ ------ ------ ------ ------ ------ ------ ------ ------ - Dictat ed By: Ruben Goldsmith M.D. [id number] Transc ribed By: Ruben Goldsmith 928 This is privil eged, confid ential inform ation intend ed only for the provid er named. Any use or distri bution by any person other than this provid er is strict ly prohib ited. If you receiv e this report in error, please notify us immedi ately at and return the origin al report to us at the addres s above. Thank- you. [facility] [address], [place], [address] 06/25/2023 17:01:10 07/17/19 24 07/17/2023 [place], [facility] toya gram No observ ation record ed. [facility] (Cardio) [address] [place] [address], [id number], 07/17/2023 15:01:18 11/18/19 24 02/09/2021 imagi ng/di agnos tic resul t No observ ation record ed. Not Available 11/17 21:54:49 11/18/19 24 11/26/2020 imagi ng/di agnos tic resul t No observ ation record ed. Not Available 11/17 21:54:50 11/18/19 24 11/26/2020 imagi ng/di agnos tic resul t No observ ation record ed. Not Available 11/17 21:54:51 11/18/19 24 11/11/2021 imagi ng/di agnos tic resul t No observ ation record ed. Not Available 11/17 21:55:00 11/18/19 24 11/11/2021 imagi ng/di agnos tic resul t No observ ation record ed. Not Available 11/17 21:55:01 11/18/19 24 11/11/2021 imagi ng/di agnos tic resul t No observ ation record ed. Not Available 11/17 21:55:02 11/18/19 24 11/11/2021 imagi ng/di agnos tic resul t No observ ation record ed. Not Available 11/17 21:55:03 11/18/19 24 11/11/2021 imagi ng/di agnos tic resul t No observ ation record ed. Not Available 11/17 21:55:04 11/18/19 24 11/26/2021 imagi ng/di agnos tic resul t No observ ation record ed. Not Available 11/17 21:55:05 11/18/19 24 02/10/2021 imagi ng/di agnos tic resul t No observ ation record ed. Not Available 11/17 21:56:26 11/18/19 24 07/04/2019 imagi ng/di agnos tic resul t No observ ation record ed. Not Available 11/17 21:56:27 11/18/19 24 01/04/2022 imagi ng/di agnos tic resul t No observ ation record ed. Not Available 11/17 21:56:28 11/18/19 24 01/04/2022 imagi ng/di agnos tic resul t No observ ation record ed. Not Available 11/17 21:56:29 11/18/19 24 05/12/2021 imagi ng/di agnos tic resul t No observ ation record ed. Not Available 11/17 21:56:30 11/18/19 24 07/05/2022 imagi ng/di agnos tic resul t No observ ation record ed. Not Available 11/17 21:56:31 11/18/19 24 07/05/2022 imagi ng/di agnos tic resul t No observ ation record ed. Not Available 11/17 21:56:31 11/18/19 24 11/12/2021 CT, cervi hillary spine No observ ation record ed. Not Available 11/17 21:56:33 11/18/19 24 11/27/2020 imagi ng/di agnos tic resul t No observ ation record ed. Not Available 11/17 21:56:36 11/18/19 24 11/12/2021 imagi ng/di agnos tic resul t No observ ation record ed. Not Available 11/17 21:56:37 11/18/19 24 11/12/2021 imagi ng/di agnos tic resul t No observ ation record ed. Not Available 11/17 21:56:42 11/18/19 24 09/29/2019 imagi ng/di agnos tic resul t No observ ation record ed. Not Available 11/17 21:56:59 11/18/19 24 01/06/2020 imagi ng/di agnos tic resul t No observ ation record ed. Not Available 11/17 21:57:14 11/18/19 24 01/13/2020 imagi ng/di agnos tic resul t No observ ation record ed. Not Available 11/17 21:57:16 11/18/19 24 11/12/2021 XR, chest No observ ation record ed. Not Available 11/17 21:58:20 11/18/19 24 11/23/2021 XR, chest No observ ation record ed. Not Available 11/17 21:58:21 11/18/19 24 11/25/2021 XR, chest No observ ation record ed. Not Available 11/17 21:58:22 11/18/19 24 07/07/2019 CT, abdom en No observ ation record ed. Not Available 11/17 21:58:23 11/18/19 24 05/26/2021 imagi ng/di agnos tic resul t No observ ation record ed. Not Available 11/17 21:58:24 11/18/19 24 11/12/2021 XR, shoul john No observ ation record ed. Not Available 11/17 21:58:34 11/18/19 24 11/14/2021 XR, shoul john No observ ation record ed. Not Available 11/17 21:58:35 11/18/19 24 11/24/2021 XR, shoul john No observ ation record ed. Not Available 11/17 21:58:36 11/18/19 24 01/25/2022 XR, shoul john No observ ation record ed. Not Available 11/17 21:58:37 11/18/19 24 11/27/2021 XR, shoul john No observ ation record ed. Not Available 11/17 21:58:38 11/18/19 24 02/10/2021 CT, angio gram, chest No observ ation record ed. Not Available 11/17 21:58:42 11/18/19 24 11/18/2021 MRI, lumba r spine No observ ation record ed. Not Available 11/17 21:58:52 11/18/19 24 12/08/2020 XR, knee No observ ation record ed. Not Available 11/17 21:58:56 11/18/19 24 02/17/2021 XR, knee No observ ation record ed. Not Available 11/17 21:58:57 11/18/19 24 05/22/2019 imagi ng/di agnos tic resul t No observ ation record ed. Not Available 11/17 21:59:40 11/18/19 24 11/11/2021 imagi ng/di agnos tic resul t No observ ation record ed. Not Available 11/17 22:00:49 11/18/19 24 11/23/2021 imagi ng/di agnos tic resul t No observ ation record ed. Not Available 11/17 22:01:01 11/18/19 24 11/24/2021 imagi ng/di agnos tic resul t No observ ation record ed. Not Available 11/17 22:01:03 11/18/19 24 02/09/2021 imagi ng/di agnos tic resul t No observ ation record ed. Not Available 11/17 22:02:00 11/18/19 24 02/10/2021 imagi ng/di agnos tic resul t No observ ation record ed. Not Available 11/17 22:02:04 11/18/19 24 02/10/2021 imagi ng/di agnos tic resul t No observ ation record ed. Not Available 11/17 22:02:08 Result Notes None recorded. Problems Name Problem SNOMED Code Status Onset Date Resolution Date Notes Provider Name and Address Organization Details Recorded Time Nicotine dependen ce 68477527 Active 200805/22/19 20 - Comments only - Shaun Chowdhury - Counsele d on smoking cessatio n. Advised him not to smoke near his apartmen t. Problem Code: Z87.891; Problem Code Type: ICD-10; Not Available [facility] 4 19:35:33 Pain in thoracic spine 212542617 Active 200810/27/19 22 - Comments only - Sherri Rivas MD - , Chronic. Overall pain is remained relative ly stable on his current hydrocod one doses. Some increase in pain as discusse d below in the left lower back which is going to be further evaluate d. Problem Code: M54.9; Problem Code Type: ICD-10; Not Available [facility] 4 19:35:32 Obesity 833902096 Active 2008 Problem Code: E66.9; Problem Code Type: ICD-10; Not Available [facility] 4 19:35:32 Neck pain 35304901 Active 2008 Problem Code: M54.2; Problem Code Type: ICD-10; Not Available [facility] 4 19:35:33 [facility] hyperten shivani 81276734 Active 200809/19/19 23 - Comments only - Sherri Rivas MD - /a-fib. Under fairly good control with the verapami l and metoprol ol. He continue s on spironol actone, also has furosemi de availabl e, does not take every day. We will check a BMP. Problem Code: I10; Problem Code Type: ICD-10; Not Available [facility] 4 19:35:33 Chronic pain syndrome 703450615 Active 200809/19/19 23 - Comments only - Sherri Rivas MD - , Also more recent pain related to injuries /fractur es of the knee and shoulder s. Chronic pain low back and hips. He continue s on hydrocod one 10 mg 4 times daily and is feeling that that does definite ly provide him more continuo us relief compared 3 times daily dosing. He feels he is able to do more sleep longer without disrupti on from pain. He uses cycloben zaprine predomin antly at at bedtime if needed. Gabapent in is at 800 mg 3 times daily and he continue s to feel he gets benefit from that in terms of his history of radiculo talha. Problem Code: G89.4; Problem Code Type: ICD-10; Not Available [facility] 4 19:35:32 History of polyp of colon 867339306 Active 2009 Problem Code: Z86.010; Problem Code Type: ICD-10; Not Available [facility] 4 19:35:32 Uncompli cated moderate persiste nt asthma 194805345 Active 200809/08/19 21 - Comments only - Sherri Rivas MD - And COPD. He feels he is getting fairly good control with the Bevespi and as needed ProAir. He states he is trying to get himself mentally ready to quit smoking again. He had quit a few years ago and remained abstinen t for about 6 months, hoping he can do the same again and remain abstinen t permanen tly. He will let me know if he needs help with this. Problem Code: J45.40; Problem Code Type: ICD-10; Not Available [facility] 4 19:35:33 Viral hepatiti s C 79271048 Active 200811/04/19 20 - Comments only - Sherri Rivas MD - s/p tx. He had an abd CT earlier this year which showed a normal liver. Will plan to continue with annual monitori ng. Problem Code: B19.20; Problem Code Type: ICD-10; Not Available [facility] 4 19:35:33 Adjustme nt disorder 48816101 Active 2014 Problem Code: F43.20; Problem Code Type: ICD-10; Not Available [facility] 4 19:35:32 History of traumati c brain injury 02259021761 100 Active 2014 Problem Code: Z87.820; Problem Code Type: ICD-10; Not Available [facility] 4 19:35:33 Pain of left wrist 78632926208 9102 Active 2014 Problem Code: M25.532; Problem Code Type: ICD-10; Not Available [facility] 4 19:35:32 Pain in right hip joint 74472265803 9102 Active 201503/27/19 20 - Comments only - Shaun Chowdhury - Administ ruth burgess ic bursitis injectio n. Problem Code: M25.551; Problem Code Type: ICD-10; Not Available [facility] 4 19:35:32 History of disorder of digestiv e system 432735697 Active 2015 Problem Code: Z87.19; Problem Code Type: ICD-10; Not Available [facility] 4 19:35:33 Chronic obstruct ria pulmonar y disease 68618684 Active 201506/09/19 23 - Comments only - Sherri Rivas MD - He continue s to use the Bevespi regularl y. He has been trying to limit albutero l use, worried that it may be triggeri ng some of his tachycar jessica. Problem Code: J44.9; Problem Code Type: ICD-10; Not Available [facility] 4 19:35:32 Pain of right shoulder joint 34220502884 601507 Active 2015 Problem Code: M25.511; Problem Code Type: ICD-10; Not Available [facility] 4 19:35:32 Insomnia 806842056 Active 201506/12/19 22 - Comments only - Sherri Rivas MD - Geovani continue s to feel that the zolpidem is what really allows him to feel like he can at least get 4 to 6 hours of decent sleep. It has been a struggle recently with increase d pain due to the knee injury but he at least does feel he can get this 4 to 6 hours most nights. He feels without the zolpidem that he does not even get that. Problem Code: G47.00; Problem Code Type: ICD-10; Not Available [facility] 4 19:35:32 Alcohol abuse 96930035 Active 201606/12/19 22 - Comments only - Sherri Rivas MD - Still occasion ally binge drinking . He is aware of the risks of this, has had fall related to this with signific ant injuries historic ally. [facility] ed him to remain abstinen t. Problem Code: F10.10; Problem Code Type: ICD-10; Not Available [facility] 4 19:35:32 Therapeu tic drug monitori ng assay 40875968 Active 2016 Problem Code: Z51.81; Problem Code Type: ICD-10; Not Available [facility] 4 19:35:32 Major depressi on, single episode 98058652 Active 201704/09/19 23 - Comments only - Sherri Rivas MD - He has been on Cymbalta 30 mg twice daily for a little while, transiti on from citalopr am. He states he does not think it is effectiv e escitalo pram and does not feel as good on it. He would like to return to the citalopr am. Rx done. He will continue Wellbutr in. Discusse d counseli ng, he will think about it. Problem Code: F32.9; Problem Code Type: ICD-10; Not Available [facility] 4 19:35:32 Opioid withdraw al 68312996 Active 2017 Problem Code: F11.93; Problem Code Type: ICD-10; Not Available [facility] 4 19:35:33 Cataract 323335393 Active 201810/13/19 20 - Comments only - Sherri Rivas MD - is schedule d to have repair done - coming in for pre-op exam next month Problem Code: H26.9; Problem Code Type: ICD-10; Not Available [facility] 4 19:35:32 Visual disturba nce 94246264 Active 201811/22/19 19 - Comments only - Shaun Chowdhury - He is going to have cataract surgery in the coming weeks. Problem Code: H53.8; Problem Code Type: ICD-10; Not Available [facility] 4 19:35:33 Disorder of patellof emoral joint 429754080 Active 201805/10/19 19 - Comments only - Shaun richardson Udupi - Referred him for a physical therapy. Problem Code: M22.2x9; Problem Code Type: ICD-10; Not Available [facility] 4 19:35:32 Pre-surg aamir evaluati on Completed 201808/26/2018 Problem Code: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 daily x 4 days 06/20 completed Not Available Not Available Not Available sumatript an 50 mg tablet Take 1-2 tablet by mouth 12/16 completed Not Available Not Available Not Available thiamine HCl (vitamin B1) 100 mg tablet TAKE ONE TABLET BY MOUTH EVERY DAY active Not Available Not Available No t Available potassium chloride ER 10 mEq tablet,ex tended release TAKE ONE TABLET BY MOUTH TWICE A DAY active Not Available Not Available No t Available terazosin 1 mg capsule Take 2 tablet every night 03/03 completed Not Available Not Available Not Available amlodipin e 5 mg tablet take 1 tablet once daily 04/08 completed Not Available Not Available Not Available cimetidin e 300 mg tablet Take 1 tab by mouth daily 11/16 completed Not Available Not Available Not Available ciproflox acin 500 mg tablet 07/21 completed Not Available Not Available Not Available hydrocodo ne 10 mg-acetam inophen 325 mg tablet TAKE ONE TABLET BY MOUTH FOUR TIMES A DAY NEEDED active Not Available Not Available No t Available aspirin 81 mg tablet,de layed release TAKE ONE TABLET BY MOUTH EVERY DAY FOR CVA 08/21 completed stopped by [facility] Not Available Not Available Not Available tramadol 50 mg tablet Take 1 tablet by mouth twice daily. 01/21 completed Not Available Not Available Not Available triamcino lone acetonide 0.1 % topical cream APPLY 1 GRAM TO THE SKIN TWO TIMES A DAY 09/02 completed not on d/c med summary from [facility] Not Available Not Available Not Available spironola ctone 25 mg tablet TAKE ONE TABLET BY MOUTH EVERY DAY 08/21 completed stopped by [facility] Not Available Not Available Not Available propranol ol 40 mg tablet 1 tab bid 09/24 completed Not Available Not Available Not Available citalopra m 20 mg tablet TAKE ONE TABLET BY MOUTH EVERY EVENING TRY TAKING AT NIGHT IF YOU DONT REMEMBER THEN TAKE IN THE MORNING active Not Available Not Available No t Available famotidin e 20 mg tablet Take 1 tablet once a day 12/16 completed Not Available Not Available Not Available magnesium oxide 400 mg (241.3 mg magnesium ) tablet TAKE ONE TABLET BY MOUTH EVERY DAY active Not Available Not Available No t Available terazosin 2 mg capsule Take 1 capsule by mouth at bedtime for BPH 04/07 completed Mike D/C 12/14/21 Not Available Not Available Not Available tamsulosi n 0.4 mg capsule TAKE ONE CAPSULE BY MOUTH EVERY DAY active Not Available Not Available No t Available gabapenti n 800 mg tablet TAKE ONE TABLET BY MOUTH THREE TIMES A DAY 08/21 completed dose change per [facility] discharg e Not Available Not Available Not Available furosemid e 80 mg tablet Take 1 tablet by mouth once a day 12/22 completed Mike D/C 12/14/21 Not Available Not Available Not Available amitripty line 10 mg tablet 1-2 at bedtime 11/15 completed Not Available Not Available Not Available Flagyl 500 mg tablet 1 tid for 10d 10/08 completed Not Available Not Available Not Available baclofen 10 mg tablet New baclofen 10 mg Tablet 10 mg PO TID PRN (Reason: muscle spasm) Qty: 30 0RF 12/16 completed [facility] 11/18/21 Not Available Not Available Not Available amlodipin e 10 mg tablet Take 1 tab daily 09/20 completed Not Available Not Available Not Available Inderal LA 120 mg capsule,e xtended release Take 1 by mouth daily 01/21 completed Not Available Not Available Not Available hydrocodo ne 7.5 mg-acetam inophen 325 mg tablet Take 1 tablet by mouth once a day as needed for chronic pain 09/15 completed Not Available Not Available Not Available pantopraz ole 40 mg tablet,de layed release TAKE ONE TABLET BY MOUTH EVERY DAY 11/23 completed Not Available Not Available Not Available trazodone 150 mg tablet 1 tab at bedtime 04/29 completed Not Available Not Available Not Available clotrimaz ole-betam ethasone 1 %-0.05 % topical cream Apply twice daily. 05/27 completed Not Available Not Available Not Available lidocaine 5 % topical patch APPLY 1 PATCH BY TOPICAL ROUTE ONCE DAILY (MAY WEAR UP TO 12HOURS. ) active started by [facility] Not Available Not Available Not Available Cozaar 100 mg tablet 1 TAB QD 10/25 completed Not Available Not Available Not Available metoprolo l tartrate 50 mg tablet Take 1/2 tablet by mouth twice a day for A. Fib 01/20 completed [facility] 12/14/21 Not Available Not Available Not Available Magnesium -Oxide 400 mg tablet Take 1 capsule once a day 2016 active Not Available Not Available Not Avai lable gabapenti n 300 mg capsule Take 1 capsule 3 times a day by oral route. active started by [facility] Not Available Not Available Not Available vitamin B complex tablet Take 1 tablet by mouth once a day for low folate 08/21 completed not on [facility] discharg e list Not Available Not Available Not Available nadolol 40 mg tablet Take 1 tab by mouth tid 11/09 completed Not Available Not Available Not Available verapamil ER (SR) 240 mg tablet,ex tended release Take 1 by mouth daily 01/14 completed Not Available Not Available Not Available polyethyl padma glycol 3350 (bulk) powder take 17g PO daily as needed for constipa tion active started by [facility] Not Available Not Available Not Available aspirin 81 mg tablet Take 1 tablet by mouth once a day 2019 active Not Available Not Available Not Avai lable hydrochlo rothiazid e 25 mg tablet 1 cap daily 11/21 completed Not Available Not Available Not Available furosemid e 20 mg tablet Take 1 tablet by mouth every other day as directed for 1 week beginnin g 02/10/20 22, if not lower extremit y edema or worsenin g breathin g can try D/Cing and use PRN for symptoms 08/21 completed now on torsemid e per [facility] Not Available Not Available Not Available metoprolo l succinate ER 25 mg tablet,ex tended release 24 hr TAKE ONE TABLET BY MOUTH EVERY DAY active Not Available Not Available No t Available polyethyl pamda glycol 3350 17 gram/dose oral powder MIX 17 GRAMS IN WATER AND TAKE BY MOUTH ONCE A DAY NEEDED FOR CONSTIPA TION 03/14 completed Not Available Not Available Not Available zolpidem 10 mg tablet TAKE 1 TABLET BY MOUTH EVERY NIGHT NEEDED active Not Available Not Available No t Available methylpre dnisolone 4 mg tablets in a dose pack TAKE BY MOUTH DIRECTED (TAKE WITH FOOD) 03/14 completed Not Available Not Available Not Available albuterol sulfate HFA 90 mcg/actua tion aerosol inhaler INHALE TWO PUFFS BY MOUTH THREE TIMES A DAY 09/02 completed not on [facility] list Not Available Not Available Not Available propranol ol 20 mg tablet 1 bid 02/02 completed Not Available Not Available Not Available celecoxib 100 mg capsule TAKE ONE CAPSULE BY MOUTH TWICE A DAY NEEDED FOR PAIN 08/21 completed stopped by [facility] Not Available Not Available Not Available lisinopri l 40 mg tablet 1 qd 06/29 completed Not Available Not Available Not Available doxycycli ne hyclate 100 mg tablet 1 twice daily 01/21 completed Not Available Not Available Not Available vitamin B complex capsule TAKE ONE CAPSULE BY MOUTH EVERY DAY FOR LOW FOLATE 03/14 completed Not Available Not Available Not Available amoxicill in 875 mg-potass ium clavulana te 125 mg tablet TAKE ONE TABLET BY MOUTH TWICE A DAY FOR 7 DAYS 08/21 completed Not Available Not Available Not Available oxycodone 5 mg tablet 1 qid 02/16 completed Not Available Not Available Not Available Nicoderm CQ 7 mg/24 hr daily transderm al patch 1 patch Daily 12/03 completed Not Available Not Available Not Available Cortispor in ear drops,[facility] pension 4 gtts four times daily 12/27 completed Not Available Not Available Not Available enoxapari n 40 mg/0.4 mL subcutane ous syringe Inject 0.4 mL every day by subcutan eous route. 09/02 completed Not Available Not Available Not Available ribavirin 200 mg tablet 2 bid 07/01 completed Not Available Not Available Not Available bupropion HCl XL 150 mg 24 hr tablet, extended release TAKE ONE TABLET BY MOUTH TWICE A DAY FOR DEPRESSI ON 08/21 completed not on [facility] discharg e list - only on citalopr am Not Available Not Available Not Available metoprolo l tartrate 25 mg tablet Take 1 tablet by mouth twice a day 04/10 completed Not Available Not Available Not Available hydrocodo ne 7.5 mg-acetam inophen 325 mg/15 mL oral solution Take 1 tab by mouth twice daily as needed for pain 01/21 completed Not Available Not Available Not Available topiramat e 50 mg tablet TAKE ONE TABLET BY MOUTH TWICE A DAY FOR HEADACHE active Not Available Not Available No t Available vitamin B complex-f olic acid 0.4 mg tablet TAKE 1 TABLET BY MOUTH ONCE DAILY FOR LOW FOLATE 03/14 completed Not Available Not Available Not Available Cymbalta 30 mg capsule,d elayed release Take 1 capsule by mouth twice a day start with 1 at hs for 1 week then increase to bid 04/07 completed Not Available Not Available Not Available gabapenti n 300 mg tablet 3 tab tid 12/18 completed Not Available Not Available Not Available ramelteon 8 mg tablet Take 1 tablet every day by oral route at bedtime. 09/02 completed no longer on med d/c list from [facility] Not Available Not Available Not Available zolpidem ER 12.5 mg tablet,ex tended release,m ultiphase TAKE 1 TABLET BY MOUTH AT BEDTIME NEEDED FOR INSOMNIA 06/07 completed Not Available Not Available Not Available Tylenol-C odeine #3 1TAB every six hours 02/03 completed Not Available Not Available Not Available Combivent 2 puffs four times daily 07/22 completed Not Available Not Available Not Available Pegasys q week 07/01 completed Not Available Not Available Not Available Chantix Starting Month Vishal 0.5 mg (11)-1 mg (42) tablets in dose pack 06/07 completed Not Available Not Available Not Available ferrous gluconate 324 mg (38 mg iron) tablet TAKE ONE TABLET BY MOUTH EVERY DAY DIRECTED 08/26 completed Not Available Not Available Not Available Pulmicort Flexhaler 180 mcg/actua tion breath activated 1 inhalati on by mouth twice daily 12/25 completed Not Available Not Available Not Available Chantix Continuin g Month Vishal 1 mg tablet 1 bid 07/27 completed Not Available Not Available Not Available ferrous sulfate 324 mg (65 mg iron) tablet,de layed release Take 1 tablet every day by oral route. 09/02 completed Not Available Not Available Not Available oxycodone 10 mg tablet oxycodon e 10 mg Tablet 10 mg PO QID PRN (Reason: pain) Qty: 20 0RF 12/22 completed [facility] WRITTEN AND FILLED ON 11/19/21 Not Available Not Available Not Available diclofena c 1 % topical gel apply to affected area twice daily - apply 4g to rt hip bid regulari ly for 1 week, then prn 2019 active Not Available Not Available Not Avai lable cholecalc iferol (vitamin D3) 50 mcg (2,000 unit) tablet TAKE ONE TABLET BY MOUTH EVERY DAY DURING THE COLDER WEATHER MONTHS 09/02 completed not on [facility] summary Not Available Not Available Not Available Cerovite Senior 0.4 mg-300 mcg-250 mcg tablet TAKE ONE TABLET BY MOUTH EVERY DAY active Not Available Not Available No t Available Probiotic 10 billion cell capsule Take 1 capsule by mouth three times a day for C-Diff 12/19 completed [facility] D/C 12/14/21 Not Available Not Available Not Available Vitamin D3 50 mcg (2,000 unit) capsule Take 1 capsule every day by oral route. 08/21 completed not on [facility] discharg [facility] list Not Available Not Available Not Available Xarelto 10 mg tablet TAKE ONE TABLET BY MOUTH EVERY DAY 11/29 completed Not Available Not Available Not Available ferrous gluconate 324 mg (37.5 mg iron) tablet TAKE ONE TABLET BY MOUTH EVERY DAY active Not Available Not Available No t Available Xarelto 15 mg tablet TAKE ONE TABLET BY MOUTH EVERY DAY 11/29 completed Not Available Not Available Not Available magnesium 400 mg (as magnesium oxide) capsule Take 1 capsule once a day 12/14 completed Not Available Not Available Not Available lidocaine 5 % topical ointment Apply four times a day 2016 active Not Available Not Available Not Avai lable Combivent Respimat 20 mcg-100 mcg/actua tion solution for inhalatio n Inhale 2 puffs 4 times a day by inhalati on route. active started by [facility] Not Available Not Available Not Available potassium chloride ER 20 mEq tablet,ex tended release 1 tab QD 11/09 completed Not Available Not Available Not Available Inderal XL 120 mg capsule,e xtended release take 1 capsule bid 12/16 completed Not Available Not Available Not Available Bevespi Aerospher e 9 mcg-4.8 mcg HFA aerosol inhaler INHALE 2 PUFFS BY MOUTH TWICE A DAY FOR COPD 08/21 completed not sure if patient is still on this - not on recent [facility] discharg [facility] list. Not Available Not Available Not Available magnesium 400 mg (as magnesium oxide) tablet Take 1 tablet by mouth once a day 08/21 completed not on [facility] discharg [facility] list Not Available Not Available Not Available torsemide 40 mg tablet Take 1 tablet twice a day by oral route. active started by [facility] Not Available Not Available Not Available Vitals Date Recorded Body height Body mass index (BMI) Body weight Oxygen saturation Oxygen saturation in Arterial blood by Pulse oximetry Heart rate Systolic blood pressure Diastolic blood pressure Provider Name and Address Organization Details Last Updated DateTime 4 172.999 4 cm 24.2 kg/m2 87219.7 8 g 98 % 98 % 109 /min 122 mm[Hg] 72 mm[Hg] Rodolfo Olivo [facility] 4 10:38:20 Date Recorded Body height Body mass index (BMI) Body weight Oxygen saturation Oxygen saturation in Arterial blood by Pulse oximetry Heart rate Systolic blood pressure Diastolic blood pressure Provider Name and Address Organization Details Last Updated DateTime 4 172.999 4 cm 22.9 kg/m2 71327.4 5 g 98 % 98 % 67 /min 124 mm[Hg] 70 mm[Hg] Rodolfo Olivo MA [facility], [facility] 4 10:19:44 Date Recorded Body height Oxygen saturation Oxygen saturation in Arterial blood by Pulse oximetry Heart rate Body mass index (BMI) Body weight Systolic blood pressure Diastolic blood pressure Provider Name and Address Organization Details Last Updated DateTime 4 172.999 4 cm 99 % 99 % 67 /min 22.5 kg/m2 73521.1 1 g 124 mm[Hg] 68 mm[Hg] Rodolfo Olivo MA [facility] 4 12:02:09 Social History Question Answer Notes LastModified by Organizat ion Details LastModified Time Tobacco Smoking Status Current Every Day Smoker Rodolfo Olivo [place] null, [facility] 05/08/2023 10:34:36 What Was The Date Of Your Most Recent Tobacco Screening? 05/08/2023 [email or web address] Information not available 05/08/2023 What Is Your Current Pack Years? [email or web address] Information not available 05/08/2023 At What Age Did You Start Smoking Tobacco? 18 [email or web address] Information not available 05/08/2023 How Much Tobacco Do You Smoke? 0.25 PPD [email or web address] Information not available 05/08/2023 How Many Years Have You Smoked Tobacco? 50 [email or web address] Information not available 05/08/2023 Do You Or Have You Ever Used Any Other Forms Of Tobacco Or Nicotine? No [email or web address] Information not available 05/08/2023 Sex: Male Functional Status None recorded. Mental Status None recorded. Family History Nothing Reported Notes:*Problem: Mother: Dece ased at age 77 CVA Father: age - late 60s - cause unknown Sisters: 2 Brothers: 1 - healthy Children: 1 son Family History of: Hypertension: no Hyperlipidemia: no Coronary heart disease: yes mother Diabetes mellitus: no Breast cancer: no Colorectal cancer: no Prostate cancer: no Alcoholism: yes father Mental illness: no Other: yes mother had stomach cancer Updated 06/21/10 sister: back surgery, B knee replacements dx unknown mother may have had breast cancer() unsure if other cancer no other changes Medical History No medical history recorded. Immunizations Vaccine Type Date Status Provider Name and Address Organization Details Recorded Time Td (adult), 2 Lf tetanus toxoid, preservative free, adsorbed 08/06/2018 completed Not [facility] 03/12/2023 19:35:34 pneumococcal, unspecified formulation 11/10/2015 completed Not Available [facility] 03/12/2023 19:35:34 Tdap 09/21/2008 completed Not Available [facility] 19:35:33 zoster live 09/28/2015 completed Not Available [facility] 03/12/2023 19:35:34 Influenza, split virus, trivalent, preservative 12/20/2014 completed Not Available [facility] 03/12/2023 19:35:34 Influenza, split virus, trivalent, preservative 01/18/2016 completed Not Available [facility] 03/12/2023 19:35:34 Influenza, split virus, quadrivalent, PF 12/26/2019 completed Not Available [facility] 03/12/2023 19:35:34 Influenza, split virus, quadrivalent, PF 01/16/2019 completed Not Available [facility] 03/12/2023 19:35:34 Influenza, split virus, quadrivalent, PF 01/28/2021 completed Not Available [facility] 03/12/2023 19:35:34 Influenza, split virus, quadrivalent, preservative 12/06/2017 completed Not Available [facility] 03/12/2023 19:35:33 zoster recombinant 04/23/2020 completed Not Available [facility] 03/12/2023 19:35:33 zoster recombinant 12/26/2019 completed Not Available [facility] 03/12/2023 19:35:33 COVID-19, mRNA, LNP-S, PF, 100 mcg/0.5mL dose or 50 mcg/0.25mL dose 08/12/2021 completed Not Available [facility] 03/12/2023 19:35:33 COVID-19, mRNA, LNP-S, PF, 100 mcg/0.5mL dose or 50 mcg/0.25mL dose 02/15/2021 completed Not Available [facility] 03/12/2023 19:35:33 pneumococcal polysaccharide PPV23 09/04/1999 completed Not Available [facility] 2023 19:35:33 Hep B, unspecified formulation 04/30/2007 completed Not Available [facility] 03/12/2023 19:35:33 Hep B, unspecified formulation 05/29/2007 completed Not Available [facility] 03/12/2023 19:35:33 Hep B, unspecified formulation 01/07/2010 completed Not Available [facility] 03/12/2023 19:35:33 Hep A, unspecified formulation 04/30/2007 completed Not Available [facility] 03/12/2023 19:35:34 Hep A, unspecified formulation 01/07/2010 completed Not Available [facility] 03/12/2023 19:35:34 influenza, unspecified formulation 11/26/2012 completed Not Available [facility] 03/12/2023 19:35:33 influenza, unspecified formulation 12/18/2013 completed Not Available [facility] 03/12/2023 19:35:33 Past Encounters Encounter ID Performer Location Encounter Start Date Encounter Closed Date Diagnosis/Indication Diagnosis SNOMED-CT Code Diagnosis ICD10 Code [id number] SHERRI RIVAS MD [address] [address] 05/08/2023 10:22:45 05/08/2023 11:57:48 Dyspnea 283764161 R06.00 Chronic pain syndrome 37 9132458 G89.4 Essential hypertension 82289605 I10 Atrial fibrillation 4943 6004 I48.91 Chronic ob structive pulmonary disease 55568592 J44.9 History of anemia 950391 002 Z86.2 Insomnia 192096449 G47.0 0 Adjustment disorder 1722 6007 F43.20 Pain of ri ght knee joint 5449074791 00525 M25.561 Recurrent bleeding of nose 9116214322 102 R04.0 Adult heal th examination 260488896 Z00.00 Depressive disorder 3548 9007 F32.A Unintentio nal weight loss 040885752 R63.4 [id number] SHERRI RIVAS MD [address] [address] 09/11/2023 09:46:53 09/11/2023 11:20:07 Hypokalemia 45409716 E87.6 Heart fail ure with reduced ejection fraction 144420742 I50.9 Anemia 448827710 D64.9 Headache 08260710 R51.9 Chronic pain syndrome 37 7461369 G89.4 Atrial fibrillation 4943 6004 I48.91 Recurrent bleeding of nose 0908299573 102 R04.0 [id number] SHERRI RIVAS MD [facility] [address] [place] [address] 11/30/2023 11:04:06 11/30/2023 12:53:47 Chronic pain syndrome 125155610 G89.4 Insomnia 107038883 G47.0 0 Major depr ession, single episode 63610707 F32.9 Essential hypertension 12381514 I10 History of anemia 903705 002 Z86.2 Health Concerns Section Related Observation LastModified by Organization Detai ls LastModified Time None Recorded Concern Status LastModified by Organization Details LastModified Time None Recorded Advance Directives Directive None Recorded Payers Encounter Date Sequence Insurance Name Policy Number Policy Beard Covered Member ID Beard Member ID Guarantor Name 05/08/2023 1 [place] [facility] Derrick Levine Pilotte [id number] Derrick Abner Pilotte 05/08/2023 2 [employer] ([place]ICA[place]) Derrick Levine Pilotte [id number] Derrick Abner Pilotguido 09/11/2023 1 [place] [facility] [employer] Derrick Abner Pilotte [id number] Derrick Abner Pilotte 09/11/2023 2 [employer] ([place]) Derrick Levine Pilotte [id number] Derrick Levine Pilotguido Notes Date Note Type Note Provider Name and Address Organization Details Recorded Time 05/08/2023 text/html HPI Notes: Derrick here today for the following, depression, weight loss, epistaxis MD [address], [place], [address], [facility]. 05/09/2023 17:57:50
--- OUTSIDE RECORDS SUMMARY | 2023-11-30 15:17 | XMS_ITS | Encounter Summary ---
Author Organization [facility] [place] [address] Care Team Providers Care Diving Judge Name Role Phone Sherri Guzman MD Primary Care Provider [phone] Encounter Details Date Type Department Care Team (Late st Contact Info) Description 06/25/2023 9:40 AM EDT Ancillary Procedure Radiology Library at [facility] [place] [address] Sherri Guzman MD [address] [place] [id number] Social History Tobacco Use Types Packs/Day Years [...] Procedure Name Priority Date/Time Associated Diagnosis Comments FILM LIBRARY STORAGE ONLY DX CHEST Routine 06/25/2023 9:33 AM EDT documented in this encounter Results * Film Library- Storage Only DX Chest (06/25/2023 9:33 AM EDT) Narrative RAD - 06/25/2023 9:33 AM EDT This exam is auto-finalizing. It's purpose is for storage only. Sherri Guzman MD IMG FILM LIBRARY ORD ERABLES [place], [place] documented in this encounter Visit Diagnoses Not on filedocumented in this encounter Care Teams Diving Judge Relationship Specialty Start Date End Date Sherri Guzman MD [address] [place] [address] PCP - General Family Medicine 12/21/15 documented as of this encounter
--- OUTSIDE RECORDS SUMMARY | 2023-11-30 15:17 | XMS_ITS | Encounter Summary ---
[place] [address] Care Team Providers Care Director Medical Safety Name Role Phone Sherri Guzman MD Primary Care Provider Reason for Visit * Auth/Cert Specialty Diagnoses / Procedures Referred By Frank t Referred To Contact Diagnoses malunion left distal radius Procedures PRO REPAIR NONUNION RADIUS OR ULNA REPAIR NONUNION OR MALUNION, RADIUS OR ULNA; W/O GRAFT Referral ID Status Reason Start Date Expiration Date Visits Re quested Visits Authorized [id number] 1 1 Encounter Details Date Type Department Care Team (Latest Contact Info) Description 03/14/2016 7:10 AM EST - 03/14/2016 1:41 PM EST Hospital Encounter [place] [address] Rabia Bolaños MD [facility] [place] [address] Closed fracture of distal end of left [...] 36.2 ??C (97.2 ??F) 03/14/2016 10:[address] Respiratory Rate 16 03/14/2016 12:55 PM EST Oxygen Saturation 93% 03/14/2016 12:55 PM EST Inhaled Oxygen Concentration - - Weight 90.7 kg (200 lb) 03/14/2016 7:24 AM EST Height 177.8 cm (5' 10) 03/14/2016 7:24 AM EST Body Mass Index 28.7 03/14/2016 7:24 AM EST documented in this encounter Discharge Instructions * Discharge Instructions* Alize Chairez I, RN - 03/14/2016 7:48 AM [...] beverages or make any legal decisions after havinggeneral anesthesia. The medications given change your reaction [...] please ask the surgeons office what they recommend for prevention of this. Some non-pharmaceutical means of constipation prevention include increasing intake of fluids, eating more fruits and vegetables as well as fruit juices. If you are uncomfortable and/or unable to urinate within 8 hours of discharge and it is before 5 pm, call your physician. If it is after 5pm go to the closest emergency room or call the hospital crowning hammer operator at [phone] and ask for physician environmental engineering manager covering for your physician. Questions or problems after 5pm or on a weekend: Call the [facility] crowning hammer operator at and ask for the physician environmental engineering manager covering for your doctor. Upper Extremity Nerve [...] tingly sensation. Finally, the pain may come back. This can happen in any order. If you [...] off during the night. It is a goodidea to take your pain medicine as prescribed before going to sleep so you won't wake up with pain.The idea is to have pain medicine in [...] or extremes in temperature. Because your arm is numb, it is more at risk for injury. Therefore.... ?? While you are awake, try to change positions of your arm often. This will help you avoid puttingtoo much pressure on the limb for long [...] at all times until feeling returns. If youdo not have a sling, watch the position of the blocked arm to make sure it is in a safe location. ?? Ask your family or support people to help with the above hints. QUESTIONS? Please call the Anesthesiology department at with concerns or after hours and ask for the anesthesiologist environmental engineering manager. * Patient Instructions* YolandamicahQamar silva Miguel - 03/14/2016 8:18 AM EST Orthopaedic Hand [...] sufficiently elevate your hand. For proper elevation whilewalking around place your surgical hand on your opposite shoulder. Dressing/ Wound: ?? The post-op dressing, splint or cast is a very important part of your treatment. If you have anyquestions please call us for clarification. If your dressing becomes wet or damaged please call theoffice. ?? No creams, lotions or ointments on your incision. Keep steri-strips in place. They will fall offon their own Keep your dressing clean and DRY until your follow-up appointment. Do not change your dressing. If a plaster splint or a cast has been applied --do not remove it or stick objects in it (i.e. coathangers, pencils). Please keep it dry, bag it [...] medication your taking. Pain medication is to betaken on an ???as needed?if needed?? basis. Remember to start with the least amount and evaluate its effectiveness. ?? You should not drink alcoholic beverages while on pain medication. ?? If tolerated, please take Tylenol three times a day in conjunction with the narcotic as they complement each other. Once pain is better controlled, you may simply take extra strength Tylenol, one to two tablets every six hours as needed. Do not exceed 3,000 mg in 24 hours. ?? The most common side effects of narcotic pain medications are nausea and constipation. To decrease nausea always take pain medication with food. If you are experiencing vomiting, please call us right away. To minimize constipation, drink plenty of fluids, eat a high fiber diet with plenty of fruits and vegetables, and take a stool softener or laxative as needed. ?? You may NOT take an anti-inflammatory medication such as Ibuprofen/Advil/Motrin or Naproxen/Aleve. Contact Information: During clinic hours M-F 8-4:30 please call [phone] If it is after 5:00PM on a weekday or a weekend and it is of an urgent nature please call [phone] and ask for the on-call orthopaedic resident. [...] Center 03/29/2016 9:35 AM Rabia Bolaños MD [facility] [address] [place] [address] CLIN documented in this encounter Medications at Time of Discharge Medication Sig Dispensed Refills Start Date End Date gabapentin (NEURONTIN) 800 mg Tablet Take 800 [...] 150 mg by mouth 2 times daily. oxyCODONE (ROXICODONE) 5 mg Tablet Take 1 tablet by mouth every 4 hours as needed for Pain. 40 tablet 03/14/2016 03/29/2016 zolpidem (AMBIEN) 10 mg Tablet Take 10 mg by mouth nightly as needed for Sleep. 03/29/2016 HYDROcodone-acetaminop hen (NORCO) 5-325 mg Tablet Take 1 tablet by mouth every 6 hours as needed for Pain. 03/29/2016 acetaminophen (TYLENOL) 160 mg/5 mL Liquid Take 15 mg/kg/dose by mouth every 4 hours as needed for Fever. 05/01/2016 lidocaine (XYLOCAINE) 5 % Ointment APPLY TO AFFECTED AREA FOUR TIMES DAILY 0 11/23/2015 08/14/2016 sucralfate (CARAFATE) 1 gram Tablet Take 1 tablet by mouth 4 times daily. 0 11/10/2015 03/29/2016 documented as of this encounter Progress Notes * Sherri Toscano RN - 03/14/2016 12:30 PM EST Arrived to [facility] with anesthesia, upper congestion, productive cough with minimal effort, suctioned minimal thick white sputum from mouth. Encouraged to cough. Duoneb given per verbal order from . 1117: switched to NRB at 6 liters [...] void. More awake- to BR via stretcher withtwo assist. On O2-4l via NC. Spot check [...] received. Patient states ready for discharge. States respiratory status is good. 1341: patient to private car with SBA only. Sling and ice in place. All belongings with patient. Inno acute distress. * Qamar Herman - 03/13/2016 8:56 PM EST Opioid PDMP 11/29/2015 [place] PDMP Query Date 03/13/2016 Derrick Nolan is being prescribed a prescription opioid for the treatment of acute post-operative pain related to Orthopedic surgery. Derrick Nolan has been advised to take the smallest dose possible to control their pain and as their pain improves to take smaller doses and increase the time between doses. In addition to this medication, non-opioid medications have been prescribed for adjunct treatment of their pain. Non-pharmacological treatment such as ice, elevation and activity modification have been recommended as appropriate. The Acute Opioid Therapy Informed Consent form has been completed and sent to medical records for scanning to chart. documented in this encounter H&P Notes * Rabia Bolaños MD - 03/14/2016 8:17 AM EST Patient Name: Derrick Nolan Patient Age: 60 y.o. Birthdate: 1955 Admit date: 03/14/2016 Attending Physician: Rabia Bolaños MD I interviewed and examined Derrick Nolan. There have been no apparent interval changes in his health status since the most recent history and physical was done. RABIA BOLAÑOS MD * Rabia Bolaños MD - 03/13/2016 12:22 PM EST Patient Name: Derrick Nolan Patient Age: 60 y.o. Birthdate: 1955 Admit date: (Not on file) Attending Physician: Rabia Bolaños MD See scanned document for pre-procedural H&P completed on 02/17/16. documented in this encounter Miscellaneous Notes * Op Note - Rabia Bolaños MD - 03/14/2016 11:06 AM EST [facility] Operative Note Patient Name: Derrick Nolan : [id number] MR#: [id number] Case Date: 03/14/2016 Surgeon: Surgeon(s) and Role: * Rabia Bolaños MD - Primary * Qamar Herman MD - Resident-Research Program Assistant Preoperative diagnosis: malunion left distal radius fracture [...] A preoperative time-out was performed as per [facility] protocol. The left arm was then exsanguinated [...] bone. Approximately 15 mL were used. The MODIZY.COMer titanium dorsal fixed-angle locking plate was then [...] the entire procedure. RABIA BOLAÑOS MD 03/14/2016 * Brief Op Note - Rabia Bolaños MD - 03/14/2016 11:05 AM EST Brief Operative Note Patient Name: Derrick Nolan : [id number] MR#: [id number] Case Date: 03/14/2016 Surgeon: Surgeon(s) and Role: * Rabia Bolaños MD - Primary * Qamar Herman MD - Resident-Research Program Assistant Preoperative diagnosis: malunion left distal radius fracture [...] Procedure Name Priority Date/Time Associated Diagnosis Comments RADIAL OSTEOTOMY, DISTAL Routine 03/14/2016 10:54 AM EST Closed fracture of distal end of left radius with malunion, unspecified fracture morphology, subsequent encounter XR FLUORO NO RAD <1HR - OR USE Routine 03/14/2016 10:32 AM EST RADIAL OSTEOTOMY, DISTAL (WRVU 9.09) 03/14/2016 8:21 AM EST Closed fracture of distal end of left radius with malunion, unspecified fracture morphology, subsequent encounter Case Notes Total tourniquet time: 117 minutes, IMPLANTABLE DEVICES SCAN 03/14/2016 12:00 AM EST documented in this encounter Results * XR Fluoro No Rad <1Hr - OR Use (03/14/2016 10:32 AM EST) Narrative RAD - 03/14/2016 10:33 AM EST This order does not need a radiologist interpretation. ?? Rabia Bolaños MD IMG FLUORO ORDERABLE S [place], [place] * SCAN DOC: IMPLANTABLE DEVICES (03/14/2016 12:00 AM EST) Scanning Provider MEDIA MGR SCAN EXT O RDR/RSLT documented in this encounter Visit Diagnoses Diagnosis Closed fracture of distal end of left radius with malunion, unspecified fracture morphology, subsequent encounter documented in this encounter Administered Medications Inactive Administered Medications - up to 3 most recent administrations Medication Order MAR Action Action Date Dose Rate Site ipratropium-albuterol (DUONEB) 0.5 mg-3 mg(2.5 mg base)/3 mL nebulizer solution 3 mL 3 mL, Nebulization, ONCE, 1 dose, On Sun03/14/16 at 1100, PACU Recovery, Routine Given 03/14/2016 11:03 AM EST 3 mLs lactated ringers infusion 1,000 mL 1,000 mL, at 100 mL/hr, Intravenous, CONTINUOUS, Starting on Sun03/14/16 at 0745, Until Sun03/14/16 at 1347, Day of Surgery (Day of Procedure) New Bag 03/14/2016 9:06 AM EST New Bag 03/14/2016 7:53 AM EST 1,000 mLs 100 mL/hr racepinephrine (VAPONEFRIN) 2.25 % nebulizer solution 0.5 mL 0.5 mL, Nebulization, ONCE, 1 dose, On Sun03/14/16 at 1130, Routine Given 03/14/2016 11:35 AM EST 0.5 mLs documented in this encounter Active and Recently Administered Medications Times are shown in EST. Scheduled Medication Order 03/12/2016 03/13/2016 03/14/2016 ipratropium-albuterol (DUONEB) 0.5 mg-3 mg(2.5 mg base)/3 mL nebulizer solution 3 mL (COMPLETED) 3 mL, Nebulization, ONCE, 1 dose, On Sun03/14/16 at 1100, PACU Recovery, Routine 1103 (Given - Provid er: Sherri Toscano RN) racepinephrine (VAPONEFRIN) 2.25 % nebulizer solution 0.5 mL (COMPLETED) 0.5 mL, Nebulization, ONCE, 1 dose, On Sun03/14/16 at 1130, Routine 1135 (Given - Provid er: Sherri Toscano RN) Continuous Medication Order 03/12/2016 03/13/2016 03/14/2016 lactated ringers infusion 1,000 mL (CANCELED) 1,000 mL, at 100 mL/hr, Intravenous, CONTINUOUS, Starting on Sun03/14/16 at 0745, Until Sun03/14/16 at 1347, Day of Surgery (Day of Procedure) 0753 (New Bag - Prov ider: Alize Cheney RN)0854 (Anesthesia Volume Adjustment - Provider: Hui Phillips CRNA)0906 (New Bag - Provider: Hui Phillips CRNA)0955 (Anesthesia Volume Adjustment - Provider: Hui Phillips CRNA)1022 (Anesthesia Volume Adjustment - Provider: Hui Phillips CRNA)1045 (Anesthesia Volume Adjustment - Provider: Hui Phillips CRNA) PRN Medication Order 03/12/2016 03/13/2016 03/14/2016 midazolam (PF) (VERSED) 1 mg/mL injection 1 mg (CANCELED) 1 mg, Intravenous, EVERY 5 MIN PRN, Starting on Sun03/14/16 at 0727, Until Sun03/14/16 at 1347, Sleep, or prior to injection of local anesthetic, Hold for delirium/agitation. (Maximum dose 5 mg)., Day of Surgery (Day of Procedure), Routine 0759 (Given - Provid er: Alize Cheney RN) No Frequency Medication Order 03/12/2016 03/13/2016 03/14/2016 ceFAZolin (ANCEF) 2 gram/50 mL infusion (COMPLETED) 1 dose, Starting on Sun03/14/16 at 0812, Until Sun03/14/16 at 0830, ALIZE CHAIREZ: cabinet override 0830 (Given - Provid er: Hui Phillips CRNA) documented in this encounter Care Teams Director Medical Safety Relationship Specialty Start Date End Date Sherri Guzman MD [address] [place] [address] PCP - General Family Medicine 12/21/15 documented as of this encounter
--- OUTSIDE RECORDS SUMMARY | 2023-11-30 15:17 | XMS_ITS | Encounter Summary ---
Author Organization [facility] Address [facility] [place] [address] Care Team Providers Care Pants Cutter Name Role Phone Sherri Guzman MD Primary Care Provider [phone] Reason for Visit * Reason Comments Follow Up Surgery L dist rad osteotomy DOS 03/14/16 DOI 11/2013 Encounter Details Date Type Department Care Team (Late st Contact Info) Description 08/14/2016 2:45 PM EDT Office [place] [address] Jared Bolaños MD [facility] [place] [address] Closed fracture of distal end of left radius with malunion, unspecified fracture morphology, subsequent encounter Social History Tobacco Use Types [...] kg (200 lb) 08/14/2016 2:25 PM EDT s tated Height 177.8 cm (5' 10) 08/14/2016 2:25 PM EDT statrd Body Mass Index 28.7 08/14/2016 2:25 PM EDT documented in this encounter Progress Notes * Tarah Moore PA - 08/14/2016 2:45 PM [...] encounter documented in this encounter Care Teams Pants Cutter Relationship Specialty Start Date End Date Sherri Guzman MD [address] [place] [address] PCP - General Family Medicine 12/21/15 documented as of this encounter
--- OUTSIDE RECORDS SUMMARY | 2023-11-30 15:17 | XMS_ITS | Encounter Summary ---
Author Organization [facility] Address [facility] [place] [address] Care Team Providers Care Cafe Server Name Role Phone Sherri Guzman MD Primary Care Provider [phone] Encounter Details Date Type Department Care Team (Latest Contact Info) Description 03/29/2016 8:21 AM EST - 03/29/2016 11:59 PM [facility] Hospital Encounter XRay at [address] [place] [address] Jared Bolaños MD [facility] [place] [address] Closed fracture of distal end of left [...] 150 mg by mouth 2 times daily. acetaminophen (TYLENOL) 160 mg/5 mL Liquid Take [...] Comments XR WRIST 3 VIEWS LEFT Routine 03/29/2016 8:33 AM EST Closed fracture of distal end of left radius with malunion, unspecified fracture morphology, subsequent encounter documented in this encounter Results * XR Wrist Complete Min 3 views Left (Generic) (03/29/2016 8:33 AM EST) Anatomical Region Laterality Modality Left Digital Radiogra phy Impressions 03/29/2016 9:21 AM EST New changes of ORIF of the distal radius, ??with evidence of healing. Narrative 03/29/2016 9:21 AM EST EXAMINATION: XR WRIST COMPLETE MIN 3 VIEWS LEFT (GENERIC) CLINICAL HISTORY: s/p osteotomy distal radius, LEFT TECHNIQUE: 3 views COMPARISON: March 14, 2016 FINDINGS: There is a dorsal plate with multiple interlocking screws stabilizing the distal left radius. There is indistinctness of the fracture margins and with mild heterotopic ossification around the fracture lines. Soft tissue swelling around the left wrist is also noted. Procedure Note Jolie Huertas MD - 03/29/2016 EXAMINATION: XR WRIST COMPLETE MIN 3 VIEWS LEFT (GENERIC) CLINICAL HISTORY: s/p osteotomy distal radius, LEFT TECHNIQUE: 3 views COMPARISON: March 14, 2016 FINDINGS: There is a dorsal plate with multiple interlocking screws stabilizing thedistal left radius. There is indistinctness of the fracture margins and withmild heterotopic ossification around the fracture lines. Soft tissue swellingaround the left wrist is also noted. IMPRESSION New changes of ORIF of the distal radius, with evidence of healing. Jared Bolaños MD IMG DX ORDERABLES documented in this encounter Visit Diagnoses Diagnosis Closed fracture of distal end of left radius with malunion, unspecified fracture morphology, subsequent encounter documented in this encounter Care Teams Cafe Server Relationship Specialty Start Date End Date Sherri Guzman MD [address] [place] [address] PCP - General Family Medicine 12/21/15 documented as of this encounter
--- OUTSIDE RECORDS SUMMARY | 2023-11-30 15:17 | XMS_ITS | Encounter Summary ---
Author Organization [facility] Address [facility] [place] [address] Care Team Providers Care Front Desk Name Role Phone Sherri Guzman MD Primary Care Provider [phone] Reason for Visit * Reason Onset Date Comments Pre Procedure Call 01/18/2016 Encounter Details Date Type Department Care Team (Late st Contact Info) Description 01/18/2016 Telephone [place] [id number] Jared Bolaños MD [facility] [place] [address] Pre Procedure Call Social History Tobacco Use Types Packs/Day Years [...] documented as of this encounter Miscellaneous Notes * Telephone Encounter - Jarek Bolaños RN - 01/28/2016 2:50 PM EST Patient is calling again to check status of rescheduling his surgery. * Telephone Encounter - Rena Aldridge - 01/19/2016 11:54 AM EST Ptient is calling back trying to reschedule his Surgery with Dr. Bolaños. Please call him back at [phone] * Telephone Encounter - Chino Giang - 01/18/2016 3:58 PM EST Who is calling: Derrick nolan Was this a new injury? no Have you had Surgery?no If so when?na Who was the Surgeon?annamarie What is the question: Patient calling. He has resolved other issues and would like to reschedule surgery with Dr. Bolaños as soon as is possible. Best number to reach the caller: [phone] documented in this encounter Plan of Treatment Not on file documented as of this encounter Visit Diagnoses Not on filedocumented in this encounter Care Teams Front Desk Relationship Specialty Start Date End Date Sherri Guzman MD [address] [place] [address] PCP - General Family Medicine 12/21/15 documented as of this encounter
--- OUTSIDE RECORDS SUMMARY | 2023-11-30 15:17 | XMS_ITS | Encounter Summary ---
Author Organization [facility] Address [facility] [place] [address] Care Team Providers Care Roller Machine Operator Name Role Phone Sherri Guzman MD Primary Care Provider [phone] Encounter Details Date Type Department Care Team (Latest Contact Info) Description 01/20/2020 2:32 PM EST - 01/20/2020 11:59 PM EST Hospital [place] [id number] Discharge Disposition: Home Social History Tobacco Use [...] Procedure Name Priority Date/Time Associated Diagnosis Comments COVID-19 PCR Routine 01/20/2020 11:00 AM EST documented in this encounter Results * COVID-19 PCR (01/20/2020 11:00 AM EST) SARS-CoV-2 RNA Not Detected Not Detected [facility] Comment: This result should be interpreted in combination with the clinical observations, patient history and epidemiological information in making a final diagnosis. For testing of asymptomatic individuals, assay performance characteristics and clinical utility have not been evaluated. Testing for SARS-CoV-2 (Severe acute respiratory syndrome coronavirus 2, formerly known as 2019 novel coronavirus or 2019-nCoV) to aid in the diagnosis of COVID-19 is performed using the [employer] RealTime SARS-CoV-2 Assay as authorized by the FDA Emergency Use Authorization (EUA). This EUA assay is intended for In-vitro Diagnostic (IVD) use with respiratory specimens such as nasopharyngeal swabs collected from individuals during the acute phase of infection. This assay is performed based on the instructions for use provided by [employer] and additional guidance provided by CDC and FDA. Testing is performed in the [facility] within the Department of Pathology and Laboratory Medicine at [facility], certified under the Clinical Laboratory Improvement Amendments of 1988 (CLIA), 42 U.S.C. 263a, to perform high complexity tests. Assay performance has been verified according to clinical laboratory regulatory requirements for use with specimens collected from individuals suspected of COVID-19. Test results are provided above. A result of ? Not Detected? indicates that the viral RNA target is not present above the limit of detection, but does not preclude SARS-CoV-2 infection. False negative results may occur if a specimen is improperly collected, transported or handled; if amplification inhibitors are present; or if inadequate numbers of viral particles are present in the specimen. When a diagnostic test is negative, the possibility of a false negative result should be considered in the context of a patient? s recent exposures and the presence of clinical signs and symptoms consistent with COVID-19. A result of ? Detected? indicates that RNA from SARS-CoV-2 was detected and the patient is infected. As required or requested by public health authorities, positive specimens may be sent for additional testing. Positive and negative predictive values for this test are highly dependent on disease prevalence. A result of ? Invalid? indicates that neither the viral RNA targets nor the internal control target was detected. An invalid result suggests the presence of inhibitors. Recollection and re-testing is recommended in the case of an invalid result. CDC COVID-19 criteria for testing on human specimens and clinical management guidance information are available at the CDC Coronavirus Disease 2019 (COVID-19) webpage under ? Information for Healthcare Professionals? (https://www.cdc.gov/coronavirus/2019-ncov/hcp/index.html) Additional information about this and other EUA tests can be found in provider and patient fact sheets at the following FDA website: https://www.fda.gov/medical-devices/dymqbszbggd-fcwbkqk-7081-hbxyw-22-nbccalxei- use-a zfceasoynbjum-lfyiffv-jjkbmme/xbvrj-ikbfqermwdj-yfmd SARS-CoV-2 RNA Source Nasal [facility] Specimen from nose (specimen) Other / Unknown 01/20/2020 11:00 AM EST 01/21/2020 1:17 AM EST Narrative Resulting Agency Comment Spec In Lab Chino Fish MD MOLECULAR ORDERABLES [facility] [place] [address] documented in this encounter Visit Diagnoses Not on filedocumented in this encounter Care Teams Roller Machine Operator Relationship Specialty Start Date End Date Sherri Guzman MD [address] [place] [address] PCP - General Family Medicine 12/21/15 documented as of this encounter
--- OUTSIDE RECORDS SUMMARY | 2023-11-30 15:17 | XMS_ITS | Encounter Summary ---
Author Organization [facility] [place] [address] Care Team Providers Care Terminal Block Assembler Name Role Phone Sherri Guzman MD Primary Care Provider [phone] Reason for Visit * Reason Onset Date Comments Appointment 05/29/2016 Encounter Details Date Type Department Care Team (Late st Contact Info) Description 05/29/2016 [place] [id number] Jared Bolaños MD [facility] [place] [address] Appointment Social History Tobacco Use Types Packs/Day Years [...] encounter Miscellaneous Notes * Telephone Encounter - Haleigh Rodriguez - 05/31/2016 2:25 PM EDT Patient scheduled * Telephone Encounter - Noemi Abbott - 05/29/2016 10:08 AM EDT LM # 1 to schedule follow up with Dr. Bolaños for next available for XR L DIST RAD OSTEOTOMY DOS 03/14/16 DOI 11/2013. documented in this encounter Plan of Treatment Not on file documented as of this encounter Visit Diagnoses Not on filedocumented in this encounter Care Teams Terminal Block Assembler Relationship Specialty Start Date End Date Sherri Guzman MD [address] [place] [address] PCP - General Family Medicine 12/21/15 documented as of this encounter
--- OUTSIDE RECORDS SUMMARY | 2023-11-30 15:17 | XMS_ITS | Encounter Summary ---
Author Organization [facility] [place] [address] Care Team Providers Care Earth Science Technical Officer Name Role Phone Sherri Guzman MD Primary Care Provider [phone] Encounter Details Date Type Department Care Team (Late st Contact Info) Description 06/25/2023 9:45 AM EDT Ancillary Procedure Radiology Library at [facility] [place] [address] Sherri Guzman MD [address] [place] [id number] Social History Tobacco Use Types Packs/Day Years [...] Associated Diagnosis Comments FILM LIBRARY STORAGE ONLY ULTRASOUND STUDY Routine 06/25/2023 9:33 AM EDT documented in this encounter Results * Film Library- Storage Only Ultrasound Study (06/25/2023 9:33 AM EDT) Narrative [facility] - 06/25/2023 9:33 AM EDT This exam is auto-finalizing. It's purpose is for storage only. Sherri Guzman MD G FILM LIBRARY ORD ERABLES [place], [place] documented in this encounter Visit Diagnoses Not on filedocumented in this encounter Care Teams Earth Science Technical Officer Relationship Specialty Start Date End Date Sherri Guzman MD [address] [place] [address] PCP - General Family Medicine 12/21/15 documented as of this encounter
--- OUTSIDE RECORDS SUMMARY | 2023-11-30 15:17 | XMS_ITS | Clinical Summary ---
Author Organization [facility] Address [facility] [place] [address] Care Team Providers Care Control And Recovery Combat Rescue Name Role Phone Sherri Guzman MD Primary Care Provider [phone] Allergies Active Allergy Reactions Criticality Noted Date Comments Losartan Other (See Comments) 12/16/2014 Worsening headaches Medications Medication Sig Dispensed Refills Start Date End Date Status buPROPion (WELLBUTRIN SR) 150 mg Tablet Sustained Release Take 150 mg by mouth 2 times daily. Active beclomethasone (QVAR) 40 mcg/actuation Aerosol Inhale 2 puffs into the lungs 2 times daily. 1 Inhaler 3 12/16/2014 Active cyclobenzaprine (FLEXERIL) 10 mg Tablet Take 1 tablet by mouth 3 times daily as needed for Muscle spasms. 30 tablet 3 12/16/2014 Active COMBIVENT RESPIMAT 20-100 mcg/actuation Mist Inhale 2 puffs into the lungs every 4 hours as needed. 0 08/20/2014 Active gabapentin (NEURONTIN) 800 mg Tablet Take 800 mg by mouth 3 times daily. Active propranolol (INDERAL LA) 160 mg Capsule,Sustained Action 24 hr Take 160 mg by mouth 2 times daily. Active nadolol (CORGARD) 40 mg Tablet Take 40 mg by mouth 3 times daily. Reported on 06/12/2016 Active topiramate (TOPAMAX) 50 mg Tablet Take 50 mg by mouth 2 times daily. Active amLODIPine (NORVASC) 10 mg Tablet Take 10 mg by mouth daily. Active citalopram (CELEXA) 20 mg Tablet Take 20 mg by mouth daily. Active hydroCHLOROthiazide (HYDRODIURIL) 25 mg Tablet Take 25 mg by mouth daily. Active triamcinolone (KENALOG) 0.1 % Ointment Apply topically 2 times daily. Active pantoprazole (PROTONIX) 40 mg Tablet, Delayed Release (E.C.) Take 1 tablet by mouth daily. 0 11/25/2015 Active VITAMIN B-1 100 mg Tablet Take 1 tablet by mouth daily. 0 11/10/2015 Active HYDROcodone-acetamin ophen (NORCO) 7.5-325 mg Tablet Take 1 tablet by mouth 2 times daily as needed. 0 03/21/2016 Active zolpidem (AMBIEN CR) 12.5 mg Tablet, Multiphasic Release Take 1 tablet by mouth nightly as needed for Insomnia. 0 03/21/2016 Active Active Problems Problem Noted Date Diagnosed Date S/P Right distal radius oste otomy with dorsal plating for malunion 03/14/2016 (Dr. Bolaños) 11/29/2015 Overview (11/29/2015): DOI 11/2014 Neck pain 12/23/2014 Mallet finger of right hand small finger [address] 11/08/2014 Family History Medical History Relation Comments Cancer Mother Relation Status Comments Father Mother Social History Tobacco Use Types Packs/Day Years Used Date Smoking Tobacco: Every Day Cigarettes Smokeless Tobacco: Never Tobacco Cessation:Ready to Q uit: No; Counseling Given: No Alcohol Use Standard Drinks/Week Comments Yes 10 (1 standard drink = 0.6 oz pu re alcohol) social Sex and Gender Information Value Date Recorded Sex Assigned at Not on file Gender Identity Not on file Sexual Orientation Not on file Last Filed Vital Signs [...] Health Maintenance Due Date Last Done Comments CT Colonography 1955 Colonoscopy 1955 Colorectal Cancer Screening 1955 FIT DNA 1955 FIT 1955 Sigmoidoscopy (10 year) with FIT yearly 1955 Sigmoidoscopy 1955 Pneumoccocal Vaccine: 65+ (1 of 2 - PCV) 05/15/1961 Hepatitis C Screening 05/15/1973 Lipid Screening 05/15/1973 Tetanus/Diphtheria/Pertussis Vaccines (1 - Tdap) 05/15 Zoster vaccine (1 of 2) 05/15/2005 Advance Directive 05/15/2010 Covid-19 Vaccine (1 - season) 2023 Influenza (Flu) vaccine (1 o f 1 - Influenza standard series) 11/04/2023 Medical Devices Implanted Type Area Php Website Developer Device Identifier Shelf Expiration Date Model / Serial / Lot Screw,Bn,T7,2 .3x32mm ([id number]) - [id number] Implanted:Qty : 1 on 03/14/2016 at [facility] IMPLANTS Left: Wrist DO NOT USE [employer] - [id number] / / Screw,Lck,T7, 2.7x22mm ([id number]) - [id number] Implanted:Qty : 1 on 03/14/2016 at [facility] IMPLANTS Left: Wrist DO NOT USE [employer] - [id number] / / Screw,Bn,T7,2 .7x14mm ([id number]) - [id number] Implanted:Qty : 1 on 03/14/2016 at [facility] IMPLANTS Left: Wrist DO NOT USE [employer] - [id number] / / Screw,Lck,T7, 2.7x14mm ([id number]) - [id number] Implanted:Qty : 1 on 03/14/2016 at [facility] IMPLANTS Left: Wrist DO NOT USE [employer] - [id number] / / Allograft,Cac ls,Crushed,5m l ([id number]) - [id number] Implanted:Qty : 1 on 03/14/2016 at [facility] IMPLANTS Left: Wrist [employer] - [id number] / / Allograft,Cac ls,Crushed,10 ml ([id number]) - [id number] Implanted:Qty : 1 on 03/14/2016 by Jared Bolaños MD at [facility] IMPLANTS Left: Wrist [facility] - [id number] 03/17/2020 CAN10 / [id number] / Screw,Bn,T7,2 .7x22mm ([id number]) - [id number] Implanted:Qty : 1 on 03/14/2016 at [facility] IMPLANTS Left: Wrist DO NOT USE [employer] - [id number] / / Screw,Bn,T7,2 .7x26mm ([id number]) - [id number] Implanted:Qty : 1 on 03/14/2016 at [facility] IMPLANTS Left: Wrist DO NOT USE [employer] [employer] - [id number] / / Plate,Smlck,D rsl,Std,Lt ([id number]) - [id number] Implanted:Qty : 1 on 03/14/2016 at [facility] IMPLANTS Left: Wrist DO NOT USE [employer] - [id number] / / Screw,Lck,T7, 2.7x20mm ([id number]) - [id number] Implanted:Qty : 2 on 03/14/2016 at [facility] IMPLANTS Left: Wrist DO NOT USE [employer] - [id number] / / Screw,Bn,T7,2 .3x28mm ([id number]) - [id number] Implanted:Qty : 1 on 03/14/2016 at [facility] IMPLANTS Left: Wrist DO NOT USE [employer] - [id number] / / Explanted Type Area Php Website Developer Device Identifier Shelf Expiration Date Model / Serial / Lot Pin,Kwire,Thr dd,0.544p1ph, Ns ([id number]) - [id number] Implanted:Qty : 3 Explanted:Qty : 3 on 03/14/2016 at [facility] IMPLANTS Left: Wrist [employer] - [id number] S / / Screw,Bn,T7,2 .7x18mm ([id number]) - [id number] Implanted:Qty : 1 Explanted:Qty : 1 on 03/14/2016 at [facility] IMPLANTS Left: Wrist DO NOT USE [employer] - [id number] / / Screw,Bn,T7,2 .7x20mm ([id number]) - [id number] Implanted:Qty : 1 Explanted:Qty : 1 on 03/14/2016 at [facility] IMPLANTS Left: Wrist DO NOT USE [employer] - [id number] / / Advance Directives * Full Code (Latest Code Status on File) Date Activated Date Inactivated Comments 03/14/2016 8:18 AM 03/14/2016 3:53 PM Question Answer Comments Does patient have capacity to make decision: Yes * Full Code Date Activated Date Inactivated Comments 11/06/2014 9:32 PM 11/19/2014 1:43 PM Question Answer Comments Does patient have capacity to make decision: Yes * Full Code Date Activated Date Inactivated Comments 11/06/2014 9:25 PM 11/06/2014 9:32 PM Question Answer Comments Does patient have capacity to make decision: Yes Care Teams Control And Recovery Combat Rescue Relationship Specialty Start Date End Date Sherri Guzman MD [address] [place] [address] PCP - General Family Medicine 12/21/15
--- OUTSIDE RECORDS SUMMARY | 2023-11-30 15:17 | XMS_ITS | Encounter Summary ---
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 with malunion, unspecified fracture morphology, subsequent encounter Niecy Sosa PA [facility] [place] [address] [facility] [address] [place] [address] Referral ID Status Reason Start Date Expiration Date V isits Requested Visits Authorized [id number] Closed Evaluate and Treat 05/01/2016 05/01/2017 1 1 Reason for Visit * Reason Comments Follow-up L dist rad osteotomy DOI 11/2013 DOS 03/14/16 Encounter Details Date Type Department Care Team (Late st Contact Info) Description 05/01/2016 2:05 PM EST Office [place] [address] Jared Bolaños MD [facility] [place] [address] Closed fracture of distal end of left [...] kg (201 lb) 05/01/2016 1:51 PM EST v erbal Height 177.8 cm (5' 10) 05/01/2016 1:51 PM EST verbal Body Mass Index 28.84 05/01/2016 1:51 PM EST documented in this encounter Progress Notes * Nadiya Holly - 05/01/2016 2:05 PM EST Derrick Nolan presents to the clinic for a cast off per Dr. Bolaños. The short arm cast was intact upon arrival. The patient was explained how the cast saw works and the cast was removed. The patient tolerated this procedure well. The patient's skin was intact.The patient was then sent to x-ray. * Niecy Sosa PA - 05/01/2016 2:05 PM EST PATIENT NAME: Derrick Nolan AGE: 60 y.o. MR#: [id number] DATE OF VISIT: 05/01/2016 DATE OF SURGERY: [...] wrist is weak when he attempts any liftingwith his left arm. Mr. Nolan denies any fever/chills or other constitutional signs of infection. He denies any numbness or tingling distal to the surgical procedure. The patient has not noticed anyabnormal drainage from his incision or increased redness [...] of motion without restriction. He is able to perform limited active wrist flexion and extension, but has pain at end range. He is not particularly tender over his dorsal plate. He does not have any palmar tenderness over his distal radius. Neurovascular: Normal motor function of the radial, median, and ulnar nerves. Normal sensation along radial, median, and ulnar nerve distributions. Good hand [...] me if they have any other questions orconcerns. The patient is scheduled for follow up in approximately 6 weeks with repeat x-rays. Once his osteotomy is fully healed we will allow him to discontinue his splint and increase his weightbearing activities. The above documentation was completed using [employer] voice recognition software. 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 [...] encounter documented in this encounter Care Teams Research Neuropsychologist Relationship Specialty Start Date End Date Sherri Guzman MD [address] [place] [address] PCP - General Family Medicine 12/21/15 documented as of this encounter
--- OUTSIDE RECORDS SUMMARY | 2023-11-30 15:17 | XMS_ITS | Encounter Summary ---
Author Organization [facility] [place] [address] Care Team Providers Care Credit Collections Analyst Name Role Phone Sherri Guzman MD Primary Care Provider [phone] Reason for Visit * Auth/Cert Specialty Diagnoses / Procedures Referred By Frank t Referred To Contact Diagnoses malunion left distal radius Procedures PRO REPAIR NONUNION RADIUS OR ULNA REPAIR NONUNION OR MALUNION, RADIUS OR ULNA; W/O GRAFT Referral ID Status Reason Start Date Expiration Date Visits Re quested Visits Authorized [id number] 1 1 Encounter Details Date Type Department Care Team (Late st Contact Info) Description 03/14/2016 8:25 AM EST - 03/14/2016 10:40 AM EST Surgery Outpatient [place] [address] Rabia Bolaños MD [facility] [place] [address] RADIAL OSTEOTOMY, DISTAL (WRVU 9.09) Social History Tobacco Use Types Packs/Day Years [...] 36.4 ??C (97.5 ??F) 03/14/2016 7:24 AM ES T Respiratory Rate 18 03/14/2016 8:05 AM EST Oxygen Saturation 97% 03/14/2016 8:05 AM EST Inhaled Oxygen Concentration - - Weight 90.7 kg (200 lb) 03/14/2016 7:24 AM EST Height 177.8 cm (5' 10) 03/14/2016 7:24 AM EST Body Mass Index 28.7 03/14/2016 7:24 AM EST documented in this encounter Discharge Instructions * Discharge Instructions* Alize Chairez I RN - 03/14/2016 7:48 AM [...] closest emergency room or call the hospital skip hoist operator at [phone] and ask for physician lead radiation therapist covering for your physician. Questions or problems after 5pm or on a weekend: Call the [facility] skip hoist operator at and ask for the physician lead radiation therapist covering for your doctor. Upper Extremity Nerve [...] after hours and ask for the anesthesiologist lead radiation therapist. * Patient Instructions* Qamar Herman - 03/14/2016 8:18 AM EST Orthopaedic Hand [...] During clinic hours M-F 8-4:30 please call [phone] If it is after 5:00PM on a weekday or a weekend and it is of an urgent nature please call [phone] and ask for the on-call orthopaedic resident. [...] 9:35 AM Rabia Bolaños MD [facility] [address] [place] [address] CLIN documented in this encounter Medications at [...] - 03/14/2016 12:30 PM EST Arrived to [facility] with anesthesia, upper congestion, productive cough with [...] 03/13/2016 8:56 PM EST Opioid PDMP 11/29/2015 [place] PDMP Query Date 03/13/2016 Derrick Nolan is [...] physical was done. RABIA BOLAÑOS MD * aRbia Bolaños MD - 03/13/2016 12:22 PM EST Patient Name: Derrick Nolan Patient Age: 60 y.o. Birthdate: 1955 Admit date: (Not on file) Attending Physician: Rabia Bolaños MD See scanned document for pre-procedural H&P completed on 02/17/16. documented in this encounter Miscellaneous Notes * Op Note - Rabia Bolaños MD - 03/14/2016 11:06 AM EST [facility] Operative Note Patient Name: Derrick Nolan : [id number] MR#: [id number] Case Date: 03/14/2016 Surgeon: Surgeon(s) and Role: * Rabia Bolaños MD - Primary * Qamar Herman MD - Resident-Compensation Administrator Preoperative diagnosis: malunion left distal radius fracture [...] A preoperative time-out was performed as per [facility] [facility] protocol. The left arm was then exsanguinated [...] bone. Approximately 15 mL were used. The [place] [employer] titanium dorsal fixed-angle locking plate was [...] Operative Note Patient Name: Derrick Nolan : [id number] MR#: [id number] Case Date: 03/14/2016 Surgeon: Surgeon(s) and Role: * Rabia Bolaños MD - Primary * Qamar Herman MD - Resident-Compensation Administrator Preoperative diagnosis: malunion left distal radius fracture [...] Rabia Bolaños MD IMG FLUORO ORDERABLE [place], [place] * SCAN DOC: IMPLANTABLE DEVICES (03/14/2016 [...] 100 mL/hr midazolam (PF) (VERSED) 1 mg/mL injection 1 mg 1 mg, Intravenous, EVERY 5 MIN PRN, Starting on Sun03/14/16 at 0727, Until Sun03/14/16 at 1347, Sleep, or prior to injection of local anesthetic, Hold for delirium/agitation. (Maximum dose 5 mg)., Day of Surgery (Day of Procedure), Routine Given 03/14/2016 7:59 AM EST 2 mg racepinephrine (VAPONEFRIN) 2.25 % nebulizer solution 0.5 [...] Routine 1103 (Given - Provid er: Sherri Toscano, ABEL) racepinephrine (VAPONEFRIN) 2.25 % nebulizer solution 0.5 mL (COMPLETED) 0.5 mL, Nebulization, ONCE, 1 dose, On Sun03/14/16 at 1130, Routine 1135 (Given - Provid er: Sherri Toscano, ABEL) Continuous Medication Order 03/12/2016 03/13/2016 03/14/2016 lactated [...] CRNA) documented in this encounter Care Teams Credit Collections Analyst Relationship Specialty Start Date End Date Sherri Guzman MD [address] [place] [address] PCP - General Family Medicine 12/21/15 documented as of this encounter
--- OUTSIDE RECORDS SUMMARY | 2023-11-30 15:17 | XMS_ITS | Continuity of Care Document ---
Author Organization [facility] Address [address] [place] [address] Care Team Providers Care Residential Child Care Counselor Name Role Phone DAVIAN GUZMAN Primary Care Provider [phone] LOTTIE MARY Orthopedic Surgeon [phone] Assessment No assessment recorded. Plan of Treatment Reminders Order Date Submit Date Provider Last Modified By Organization Details Last Modified Time Details Appointments Follow Up 2023 11:40A M Not available Not available Not available Follow Up 30 2023 01:00P M Not available Not available Not available Lab CMP, serum or plasma 2023 024 [facility] (Registration), [address] [place] [address] [place], [address], 09/11/2023 16:22:03 TSH, serum, reflex free T4 2023 024 [facility] (Registration), [address] [place] [address] [place], [address], 09/11/2023 14:19:49 CBC 2023 024 [facility] (Registration), [address] [place] [address] [place], [address], 09/11/2023 16:41:[address] refer l 2023 024 [facility], [address] [place] [address] [place], [address], 09/12/2023 10:01:08 Procedures None recorde d. Surgeries None recorde d. Imaging None recorde d. Medication Orders hydroco done 10 mg-acet aminoph en 325 mg tablet 2023 [facility], [address] [place] [address], [id number], 09/11/2023 11:23:24 topiram ate 50 mg tablet 2023 [facility], [address] [place] [address], [id number], 09/11/2023 11:23:22 Xarelto 15 mg tablet 2023 [facility], [address] [place] [address], [id number], 11/30/2023 11:59:25 tamsulo sin 0.4 mg capsule 2023 024 [facility], [address] [place] [address], [id number], 09/11/2023 11:23:14 Patient TargetsNo targets recorded. 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 Advised him not to smoke near his apartmen t. Problem Code: Z87.891; Problem Code Type: ICD-10; Not Available [facility] 4 19:35:33 Pain in thoracic spine 593989810 Active 200810/27/19 22 - Comments only - Davian Guzman MD - , Chronic. Overall pain is remained relative ly stable on his current hydrocod one doses. Some increase in pain as discusse d below in the left lower back which is going to be further evaluate d. Problem Code: M54.9; Problem Code Type: ICD-10; Not Available [facility] 4 19:35:32 Obesity 050270388 Active 2008 Problem Code: E66.9; Problem Code Type: ICD-10; Not Available [facility] 4 19:35:32 Neck pain 12956900 Active 2008 Problem Code: M54.2; Problem Code Type: ICD-10; Not Available [facility] 4 19:35:33 Essentia l hyperten shivani 24782103 Active 200809/19/19 23 - Comments only - Davian Guzman MD - /a-fib. Under fairly good control with the verapami l and metoprol ol. He continue s on spironol actone, also has furosemi de availabl e, does not take every day. We will check a BMP. Problem Code: I10; Problem Code Type: ICD-10; Not Available [facility] 4 19:35:33 Chronic pain syndrome 281736130 Active 200809/19/19 23 - Comments only - Davian Guzman MD - , Also more recent pain [...] G89.4; Problem Code Type: ICD-10; Not Available [facility] 19:35:32 History of polyp of colon 559471312 Active 2009 Problem Code: Z86.010; Problem Code Type: ICD-10; Not Available [facility] 19:35:32 Uncompli cated moderate persiste nt asthma 276707545 Active 200809/08/19 21 - Comments only - Davian Guzman MD - And COPD. He feels he [...] J45.40; Problem Code Type: ICD-10; Not Available [facility] 19:35:33 Viral hepatiti s C 21484057 Active 200811/04/19 20 - Comments only - Davian Guzman MD - s/p tx. He had an abd CT earlier this year which showed a normal liver. Will plan to continue with annual monitori ng. Problem Code: B19.20; Problem Code Type: ICD-10; Not Available [facility] 4 19:35:33 Adjustme nt disorder 78605977 Active 2014 Problem Code: F43.20; Problem Code Type: ICD-10; Not Available [facility] 19:35:32 History of traumati c brain injury 24777493559 100 Active 2014 Problem Code: Z87.820; Problem Code Type: ICD-10; Not Available [facility] 19:35:33 Pain of left wrist 97902596015 9102 Active 2014 Problem Code: M25.532; Problem Code Type: ICD-10; Not Available [facility] 4 19:35:32 Pain in right hip joint 13567638203 9102 Active 201503/27/19 20 - Comments only - Shaun Chowdhury - Administ ruth janettkristin ic bursitis injectio n. Problem Code: M25.551; Problem Code Type: ICD-10; Not Available [facility] 4 19:35:32 History of disorder of digestiv e system 501947426 Active 2015 Problem Code: Z87.19; Problem Code Type: ICD-10; Not Available [facility] 4 19:35:33 Chronic obstruct milind pulmonar y disease 07310790 Active 201506/09/19 23 - Comments only - Davian Guzman MD - He continue s to use the Bevespi regularl y. He has been trying to limit albutero l use, worried that it may be triggeri ng some of his tachycar jessica. Problem Code: J44.9; Problem Code Type: ICD-10; Not Available [facility] 4 19:35:32 Pain of right shoulder joint 53063519005 863192 Active 2015 Problem Code: M25.511; Problem Code Type: ICD-10; Not Available [facility] 4 19:35:32 Insomnia 100592613 Active 201506/12/19 22 - Comments only - Davian Guzman MD - Geovani continue s to feel [...] G47.00; Problem Code Type: ICD-10; Not Available [facility] 4 19:35:32 Alcohol abuse 47939845 Active 201606/12/19 22 - Comments only - Davian Guzman MD - Still occasion ally binge drinking . He is aware of the risks of this, has had fall related to this with signific ant injuries historic ally. Encour ed him to remain abstinen t. Problem Code: F10.10; Problem Code Type: ICD-10; Not Available [facility] 19:35:32 Therapeu tic drug monitori ng assay 99937968 Active 2016 Problem Code: Z51.81; Problem Code Type: ICD-10; Not Available [facility] 19:35:32 Major depressi on, single episode 86551257 Active 201704/09/19 23 - Comments only - Davian Guzman MD - He has been on Cymbalta 30 mg twice daily for a little while, transiti on from citalopr am. He states he does not think it is effectiv e escitalo pram and does not feel as good on it. He would like to return to the citalopr am. Rx done. He will continue Wellbutr in. Discusse d counselmercy ng, he will think about it. Problem Code: F32.9; Problem Code Type: ICD-10; Not Available [facility] 19:35:32 Opioid withdraw al 65138773 Active 2017 Problem Code: F11.93; Problem Code Type: ICD-10; Not Available [facility] 19:35:33 Cataract 087052157 Active 201810/13/19 20 - Comments only - Davian Guzman MD - is schedule d to have repair done - coming in for pre-op exam next month Problem Code: H26.9; Problem Code Type: ICD-10; Not Available [facility] 19:35:32 Visual disturba nce 31001429 Active 201811/22/19 19 - Comments only - Shaun a Udupi - He is going to have cataract surgery in the coming weeks. Problem Code: H53.8; Problem Code Type: ICD-10; Not Available [facility] 4 19:35:33 Disorder of patellof emoral joint 912450090 Active 201805/10/19 19 - Comments only - Shaun a Udupi - Referred him for a physical therapy. Problem Code: M22.2x9; Problem Code Type: ICD-10; Not Available [facility] 4 19:35:32 Pre-surg aamir evaluati on Completed 201808/26/2018 Problem Code: Z01.818; Problem Code Type: ICD-10; Not Available [facility] 3 05:26:03 Trochant sulema bursitis of right hip 03296977192 9100 Active 201909/08/19 21 - Comments only - Davian Guzman MD - Respondi ng well to the diclofen ac gel. We will see if insuranc e will cover for him. He is doing some stretchi ng exercise s that he looked up with some benefit. Problem Code: M70.61; Problem Code Type: ICD-10; Not Available [facility] 4 19:35:32 Atrial fibrilla tion 22698917 Active 201907/11/19 23 - Comments only - Davian Guzman MD - /Tachyca rdia and dyspnea associat [...] do appear to be appropri ate. I encourag ed him to build up his walking, [...] I48.91; Problem Code Type: ICD-10; Not Available [facility] 4 19:35:33 Divertic ulitis of intestin e 322078798 Active 201907/17/19 20 - Comments only - Davian Guzman MD - symptoms improvin g on the abx - encourag ed him to complete them. He can start opening up his diet more, avoiding seeds and small, hard foods for now. He will consider a colonosc opy - wants to wait for now. Will discuss more at next visit. Problem Code: K57.92; Problem Code Type: ICD-10; Not Available [facility] 4 19:35:33 Pain of right knee joint 04738176627 4100 Active 201908/17/19 22 - Comments only - Davian Guzman MD - Which did not respond for any length of time to recent injectio n by Ortho. He does have a follow-u p appointm ent schedule d with them. He thinks he will be talking with him about surgical options. Problem Code: M25.561; Problem Code Type: ICD-10; Not Available [facility] 4 19:35:32 Tremor 72837135 Active 2019 Problem Code: R25.1; Problem Code Type: ICD-10; Not Available [facility] 4 19:35:32 Adult health examinat ion Active 202004/25/19 21 - Comments only - Caroline Gómez -[facility]uel [facility]- - - Shingrix #2 given today - Otherwis e UTD on preventi ve care Problem Code: Z00.00; Problem Code Type: ICD-10; Not Available [facility] 4 19:35:32 Pleuriti c pain 6467511 Active 202012/27/19 21 - Comments only - Davian Guzman MD - , pain medicati ons helping although having difficul ty sleeping due to pain. He feels his breathin g is stable. Problem Code: R07.81; Problem Code Type: ICD-10; Not Available [facility] 4 19:35:32 Closed fracture of right femur 83332265098 867843 Active 202004/16/19 22 - Comments only - Davian Guzman MD - slow improvem ent although he feels the rt leg is weaker (which it is objectiv joão). He will try to do the exercise s recommen ded and start walking more. Problem Code: S72.91xA ; Problem Code Type: ICD-10; Not Available [facility] 4 19:35:32 History of recurren t pneumoni a 883469606 Active 202004/16/19 - Comments only - Davian Guzman MD - Clinical ly resolved . We discusse d the importan ce of smoking cessatio n- he had successf ully quit for a while in the past, then resumed it. He is working on slowly cutting back.. Problem Code: Z87.01; Problem Code Type: ICD-10; Not Available [facility] 4 19:35:33 Lumbosac ral radiculo talha 2853591 Active 202108/17/19 22 - Comments only - Davian Guzman MD - /Chronic hip pain. Currentl y [...] M54.16; Problem Code Type: ICD-10; Not Available [facility] 4 19:35:32 Cocaine abuse 30045717 Active 202106/12/19 22 - Comments only - Davian Guzman MD - We will follow up on [...] F14.10; Problem Code Type: ICD-10; Not Available [facility] 4 19:35:33 Dizzines s and giddines s 920158971 Active 2021 Problem Code: R42; Problem Code Type: ICD-10; Not Available [facility] 4 19:35:32 Abdomina l pain 93651546 Active 202107/28/19 22 - Comments only - Davian Guzman MD - rt sided. He does have cholelit hiasis on prior imaging (last year). In 2019 had the cholelit hiasis but no nephroli thiasis on abd/pelv ic CT. No infectio us symptoms . He wants to wait until his visit with me next month and then decide on further w/u. Problem Code: R10.9; Problem Code Type: ICD-10; Not Available [facility] 4 19:35:32 Urine substanc e level above referenc e range Active 202108/17/19 22 - Comments only - Davian Guzman MD - , He admits CFIDS intermit [...] R82.5; Problem Code Type: ICD-10; Not Available [facility] 4 19:35:32 Dyspnea 947953073 Active 202110/27/19 22 - Comments only - Davian Guzman MD - Concern for possible CAD in [...] R06.09; Problem Code Type: ICD-10; Not Available [facility] 4 19:35:32 Asthenia 22056313 Active 202103/11/19 23 - Comments only - Davian Guzman MD - Which he states has resolved . We will do physical assessme nt at next visit. Problem Code: R53.1; Problem Code Type: ICD-10; Not Available [facility] 4 19:35:32 Disorder of the urinary system 765347234 Active 202110/27/19 22 - Comments only - Davian Guzman MD - As noted just this morning, [...] N39.9; Problem Code Type: ICD-10; Not Available [facility] 4 19:35:32 Lung field abnormal 800135386 Active 202104/09/19 23 - Comments only - Davian Guzman MD - /Smoker. He needs a low-dose chest CT. He is aware of the importan ce of smoking cessatio n, is hoping to work on abstinen ce this spring. Historic ally he has been able to be abstinen t for periods of time. Problem Code: R91.8; Problem Code Type: ICD-10; Not Available [facility] 4 19:35:32 Closed fracture of shaft of humerus 02855600 Active 202101/18/20 22 - Comments only - Davian Guzman MD - with joint replacem ent and [...] He would benefit from an adjustab le [facility] bed temporar carlos enrique to allow for safer movement out of the bed and better pain control due to the ability to adjust the head of the bed. Problem Code: S42.399A ; Problem Code Type: ICD-10; Not Available [facility] 19:35:33 Disorder of bone 41078821 Active 2021 Problem Code: M89.8x8; Problem Code Type: ICD-10; Not Available [facility] 19:35:33 Heart failure 27678402 Active 202106/14/19 23 - Comments only - Davian Guzman MD - /A-fib asked to call HH so they can come for an evalutio [...] I50.9; Problem Code Type: ICD-10; Not Available [facility] 4 19:35:33 History of anemia 459764630 Active 202106/09/19 23 - Comments only - Davian Guzman MD - Which could be contribu ting [...] get home health involved . Not Available [facility] 4 19:35:32 Cough 39121309 Active 202203/11/19 23 - Comments only - Davian Guzman MD - , Likely virally induced COPD exacerba tion. He feels he is at the point that systemic steroids would be helpful. He is done well with Medrol Dosepak historic ally. That was sent in. If he does start developi ng any fever, increasi ng dyspnea he is aware he needs to be seen. Problem Code: R05.8; Problem Code Type: ICD-10; Not Available [facility] 4 19:35:33 Posttrau matic headache 93382393 Active 2022 Problem Code: G44.309; Problem Code Type: ICD-10; Not Available [facility] 19:35:33 Disorder of kidney and/or ureter 179414056 Active 202207/11/19 23 - Comments only - Davian Guzman MD - That develope d over the past year. He is due to have renal function checked. Problem Code: N28.9; Problem Code Type: ICD-10; Not Available [facility] 4 19:35:32 Chronic pain 70324538 Completed 200811/29/2022 Not Available [facility] 3 05:26:09 Shoulder joint pain 681881959 Completed 200811/29/2022 Problem Code: 719.41; Problem Code Type: ICD-9; Not Available [facility] 3 05:26:09 Bleeding from nose 031742176 Completed 201502/07/2021 Problem Code: R04.0; Problem Code Type: ICD-10; Not Available [facility] 3 05:26:09 Headache 77009024 Completed 201002/07/2021 Problem Code: R51; Problem Code Type: ICD-10; Not Available [facility] 3 05:26:10 Uncompli cated asthma 211068961 Completed 200811/29/2022 Problem Code: J45.909; Problem Code Type: ICD-10; Not Available [facility] 3 05:26:10 Benign neoplasm of colon 03372564 Completed 200911/29/2022 Problem Code: 211.3; Problem Code Type: ICD-9; Not Available [facility] 3 05:26:10 Acute upper respirat ory infectio n 65427473 Completed 201510/13/2019 Problem Code: J06.9; Problem Code Type: ICD-10; Not Available [facility] 3 05:26:10 Insect bite Completed 202002/07/2021 Not Available [facility] 3 05:26:11 Traumati c or non-trau matic injury 245901062 Completed 201403/15/2016 Problem Code: T14.90; Problem Code Type: ICD-10; Not Available [facility] 3 05:26:11 Low blood pressure 82553665 Completed 201605/22/2019 Problem Code: I95.9; Problem Code Type: ICD-10; Not Available [facility] 3 05:26:11 Hypokale david 82358721 Completed 201610/13/2019 Problem Code: E87.6; Problem Code Type: ICD-10; Not Available [facility] 3 05:26:11 Dizzines s and giddines s 300592070 Completed 201502/07/2021 Problem Code: R42; Problem Code Type: ICD-10; Not Available [facility] 3 05:26:11 Pain in finger of left hand 56185915197 9105 Completed 201902/07/2021 Problem Code: M79.645; Problem Code Type: ICD-10; Not Available [facility] 3 05:26:12 Chronic hepatiti s C 136388150 Completed 200811/29/2022 Problem Code: 070.54; Problem Code Type: ICD-9; Not Available [facility] 3 05:26:12 Alcohol abuse 88707487 Completed 200811/29/2022 Not Available [facility] 3 05:26:12 Smoker 08491248 Completed 200811/29/2022 Not Available [facility] 3 05:26:13 Cough 56362089 Completed 201602/07/2021 Problem Code: R05; Problem Code Type: ICD-10; Not Available [facility] 3 05:26:13 Backache 168425508 Completed 200811/29/2022 Not Available [facility] 3 05:26:14 Daily headache 04182437389 3 Completed 201011/29/2022 Not Available [facility] 3 05:26:14 Ingrowin g nail 211748772 Completed 201405/22/2019 Problem Code: L60.0; Problem Code Type: ICD-10; Not Available [facility] 3 05:26:14 Accident al fall Completed 201602/07/2021 Not Available [facility] 3 05:26:14 Asthma 961199079 Completed 200811/29/2022 Not Available [facility] 3 05:26:15 Alcohol intoxica tion 11945285 Completed 201612/28/2017 Problem Code: F10.929; Problem Code Type: ICD-10; Not Available [facility] 3 05:26:15 Depressi ve disorder 13541308 Active [address], [facility] [address] , [facility] 4 11:15:04 Pain of right knee region 28712381671 4105 Active [address], [facility] [address] , [facility] 4 11:17:28 Recurren t bleeding of nose Active [address], [facility] [address] , [facility] 4 11:37:42 Unintent ional weight loss 343308133 Active [address], [facility] [address] , [facility] 4 17:53:33 Problem Notes None recorded. Medical Equipment None Reported. Allergies Allergen ID Allergen Name Allergen Category Reaction Reaction Severity Criticality Documentation Date Start Date Code Code System Note Provider Name and Address Organization Details Recorded Time 28977 clonidine hydrochlo ride medicatio n dry mouth mild low 01/12/20232008 68833 2 RxNorm Susan Tad null, [facility] 4 18:22:59 19980 lisinopri l medicatio n cough mild low 01/12/20232012 72370 RxNorm Susan Tad null, [facility] 4 18:22:44 64510 tramadol hydrochlo ride medicatio n other moderate low 01/12/20232014 91335 RxNorm GI upset Susan Tad [facility], [facility] 4 18:22:36 23341 amlodipin e / benazepri l medicatio n swelling moderate high 01/12/20232017 84275 3 RxNorm LE edema Susan green, [facility] 4 18:23:07 79492 Cozaar medicatio n other mild low 01/12/20232012 95496 8 RxNorm ? cough Susan Randall [facility], [facility] 4 18:22:53 45320 Pulmicort medicatio n other moderate low 03/14/20232020 78773 7 RxNorm felt jumpy Susan Randall [facility], [facility] 4 18:22:20 43889 Jardiance medicatio n other Not available low 08/24/2023 00355 59 RxNorm groin infec tion DAVIAN GUZMAN MD [address], [place], [address] [place] [address] 4 15:00:51 Medications Name Sig Start Date [...] mouth every morning for CHF 12/22 completed [facility] 12/14/21 Not Available Not [...] route. 09/02 completed started by [facility]/not on Mike d/c summary as of 08/30/23 Not Available [...] not on d/c med summary from [facility] Not Available Not Available Not Available spironola [...] mouth at bedtime for BPH 04/07 completed [facility] 12/14/21 Not Available Not Available Not [...] by mouth once a day 12/22 completed [facility] 12/14/21 Not Available Not Available Not [...] Available Not Available No t Available polyethyl padma glycol 3350 17 gram/dose oral powder MIX [...] longer on med d/c list from [facility] [employer] Not Available Not Available Not Available zolpidem [...] inhalati on route. active started by [facility] Not Available Not Available Not Available potassium [...] day by oral route. active started by [facility] Not Available Not Available Not Available Vitals Date Recorded Body height Body mass index (BMI) Body weight Oxygen saturation Oxygen saturation in Arterial blood by Pulse oximetry Heart rate Systolic blood pressure Diastolic blood pressure Provider Name and Address Organization Details Last Updated DateTime 4 172.999 4 cm 22.9 kg/m2 92197.4 5 g 98 % 98 % 67 /min 124 mm[Hg] 70 mm[Hg] Rodolfo Olivo MA [facility] 10:19:44 Social History Question Answer Notes LastModified by Organizat ion Details LastModified Time Tobacco Smoking Status Current Every Day Smoker Rodolfo Olivo MA null, [facility] 05/08/2023 10:34:36 What Was The Date Of Your Most Recent Tobacco Screening? 05/08/2023 [email or web address] Information not available 05/08/2023 What Is Your Current Pack Years? 30ormorepacky ears [email or web address] Information not available 05/08/2023 At What Age Did You Start Smoking Tobacco? 18 [email or web address] Information not available 05/08/2023 How Much Tobacco Do You Smoke? 0.25 PPD Information not available 05/08/2023 How Many Years Have You Smoked Tobacco? 50 [email or web address] Information not available 05/08/2023 Do You Or Have You Ever Used Any Other Forms Of Tobacco Or Nicotine? No [email or web address] Information not available 05/08/2023 Sex: Male Functional [...] preservative free, adsorbed 08/06/2018 completed Not Available [facility] 03/12/2023 19:35:34 pneumococcal, unspecified formulation 11/10/2015 completed Not Available [facility] 03/12/2023 19:35:34 Tdap 09/21/2008 completed Not Available [facility] 19:35:33 zoster live 09/28/2015 completed Not Available [facility] 03/12/2023 19:35:34 Influenza, split virus, trivalent, preservative 12/20/2014 completed Not Available [facility] 03/12/2023 19:35:34 Influenza, split virus, trivalent, preservative 01/18/2016 completed Not Available [facility] 03/12/2023 19:35:34 Influenza, split virus, quadrivalent, PF 12/26/2019 completed Not Available [facility] 03/12/2023 19:35:34 Influenza, split virus, quadrivalent, PF 01/16/2019 completed Not Available [facility] 03/12/2023 19:35:34 Influenza, split virus, quadrivalent, PF 01/28/2021 completed Not Available [facility] 03/12/2023 19:35:34 Influenza, split virus, quadrivalent, preservative 12/06/2017 completed Not Available [facility] 03/12/2023 19:35:33 zoster recombinant 04/23/[address] [facility] 03/12/2023 19:35:33 zoster recombinant 12/26/[address] [facility] 03/12/2023 19:35:33 COVID-19, mRNA, LNP-S, PF, 100 mcg/0.5mL dose or 50 mcg/0.25mL dose 08/12/2021 completed Not Available [facility] 03/12/2023 19:35:33 COVID-19, mRNA, LNP-S, PF, 100 mcg/0.5mL dose or 50 mcg/0.25mL dose 02/15/2021 completed Not Available [facility] 03/12/2023 19:35:33 pneumococcal polysaccharide PPV23 09/04/1999 completed Not Available [facility] 2023 19:35:33 Hep B, unspecified formulation 04/30/2007 completed Not Available [facility] 03/12/2023 19:35:33 Hep B, unspecified formulation 05/29/2007 completed Not Available [facility] 03/12/2023 19:35:33 Hep B, unspecified formulation 01/07/2010 completed Not Available [facility] 03/12/2023 19:35:33 Hep A, unspecified formulation 04/30/2007 completed Not Available [facility] 03/12/2023 19:35:34 Hep A, unspecified formulation 01/07/2010 completed Not Available [facility] 03/12/2023 19:35:34 influenza, unspecified formulation 11/26/2012 completed Not Available [facility] 03/12/2023 19:35:33 influenza, unspecified formulation 12/18/2013 completed Not Available [facility] 03/12/2023 19:35:33 Past Encounters Encounter ID Performer Location Encounter Start Date Encounter Closed Date Diagnosis/Indication Diagnosis SNOMED-CT Code Diagnosis ICD10 Code [id number] DAVIAN GUZMAN MD [address] [address] 09/11/2023 09:46:53 09/11/2023 11:20:07 Hypokalemia 90190040 E87.6 Heart fail ure with reduced ejection fraction 866310303 I50.9 Anemia 323423590 D64.9 Headache 08596188 R51.9 Chronic pain syndrome 37 1171922 G89.4 Atrial fibrillation 4943 6004 I48.91 Recurrent bleeding of nose 2340596043 102 R04.0 Health Concerns Section Related Observation LastModified by Organization Detai ls LastModified Time None Recorded Concern Status LastModified by Organization Details LastModified Time None Recorded Payers Encounter Date Sequence Insurance Name Policy Number Policy Beard Covered Member ID Beard Member ID Guarantor Name 09/11/2023 1 [place] [employer] Derrick Nolan [id number] Derrick Nolan 09/11/2023 2 [facility] (MEDICAID) Derrick Nolan [id number] Derrick Nolan
--- OUTSIDE RECORDS SUMMARY | 2023-11-30 15:17 | XMS_ITS | Encounter Summary ---
Author Organization [facility] [place] [address] Care Team Providers Care Caddymaster Name Role Phone Sherri Guzman MD Primary Care Provider [phone] Reason for Visit * Auth/Cert Specialty Diagnoses / Procedures Referred By Contscarlett t Referred To Contact Diagnoses malunion left distal radius Procedures PRO REPAIR NONUNION RADIUS OR ULNA REPAIR NONUNION OR MALUNION, RADIUS OR ULNA; W/O GRAFT Referral ID Status Reason Start Date Expiration Date Visits Re quested Visits Authorized [id number] 1 1 Encounter Details Date Type Department Care Team (Late st Contact Info) Description 03/14/2016 8:17 AM EST Anesthesia Event [place] [address] Meredith Barber DO [facility] [address] [place] [address] Renzo Cash MD [facility] [place] [address] [place] [address] Anesthesia Record Procedure Summary Procedure Name Responsible Anesthesiologist Anesthesia Start Time Anesthesia Stop Time RADIAL OSTEOTOMY, DISTAL (WRVU 9.09) (Left: Wrist) Meredith aBrber DO 03/14/16 0817 03/14/16 1102 Events Date Time Event Comment 03/14/2016 0817 Start 0819 AN Verify 0822 An Start Data 0825 An Induction 0827 An Intubation 0830 Anesthesia Ready 0843 0846 Skin Incision Time out done. 0920 an amira now BP cuff moved t o right arm. 1043 An Tourn Deflated 117 minute s total. 1050 Extubation/LMA Out 1054 an stop data 1101 Recovery or ICU Handoff Maria Esther ent care was transferred to the destination unit staff after review of the patient's medical history, current anesthetic/surgical status and plan, according to the Provider Handoff Checklist. 1102 Stop Meds Name Total fentaNYL 120 mcg IV Lidocaine 50 mg Propofol 200 mg Propofol INF 528.33 mg Dexamethasone 8 mg Ondansetron 4 mg PHENYLephrine 1,240 mcg ePHEDrine 105 mg ceFAZolin (ANCEF) 2 gram/50 mL infusion 2 g Albuterol Inhaler 12 puff lactated ringers infusion 1,000 mL 2,500 mL * Agents Name O2 Air N2O Sevoflurane (et) * Blood No blood administrations on file. Lines, Drains, and Airways Type Details Placement Removal (RETIRED) Peripheral IV Line - Single Lumen 03/14/16; 0752; basilic vein (medial side of arm), right; izgc-heq-ehzzcw catheter system; 20 gauge, 1 in length; intradermal injection, distraction; no longer indicated, catheter/device intact; 03/14/16; 1330 03/14/16 0752 by Karen Chairez RN 03/14/16 1330 by Sherri Toscano, ABEL Supraglottic Mask Ventilation: No t Attempted (0); LMA Type: Unique; LMA Size: 5; Inserted by: Alan COLIN; Removal Date: 03/14/16; Removal Time: 1050 03/14/16 0827 by Hui Phillips CRNA 03/14/16 1050 by Hui Phillips CRNA Incision 03/14/16; 0902; wris t; 10/31/21 (LDA cleanup utility RA#[id number]); 1715 (LDA cleanup utility RA#[id number]) 03/14/16 0902 by Kyleigh Montano RN 10/31/21 1715 by Arsh Gallo documented in this encounter Social History Tobacco [...] documented as of this encounter OR Notes * Anesthesia Postprocedure Evaluation - Meredith Barber DO - 03/16/2016 12:19 PM EST [facility] Department of Anesthesiology Post-procedure Note Patient: Derrick Nolan Procedure Summary Date Anesthesia Start Anesthesia Stop Room / Location 03/14/16 0817 1102 [facility] / [facility] Procedure Diagnosis Surgeon Responsible Provider RADIAL OSTEOTOMY, DISTAL (WRVU 9.09) (Left Wrist) 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, unspecified fracture morphology, subsequent encounter (malunion left distal radius) Jared Bolaños MD Walker, Tacee E, DO All Anesthesia Providers: Anesthesiologist: Meredith Barber DO GRAVEL ROOFER: Hui Phillips CRNA Last (1hr) Vitals: BP Temp Pulse Resp SpO2 Patient Location: PACU/SD Level of Consciousness: Awake and Alert Pain Management: Satisfactory Analgesia PONV: None Cardiovascular Status: At Baseline and Hemodynamically Stable Respiratory Status: At Baseline and Room Air Postoperative Fluid Status: Intravascular EUvolemia Possible Anesthetic Complications: NONE apparent at time of evaluation Final Primary Anesthesia Type: General (The anesthetic type performed was the same as planned.) Comments: Meredith Barber DO * Anesthesia Procedure Notes - Meredith Barber DO - 03/14/2016 8:08 AM EST Associated Order(s): ANESTHESIA BLOCK Procedure: Anesthesia Block Block: Post-op Pain Control, supraclavicular nerve block Start time: 03/14/2016 7:59 AM End time: 03/14/2016 8:05 AM Patient Location: Block Room Pre-Op Indication/Prep Position: sitting Prep: chlorhexidine, mask, cap, sterile gloves, hand hygeine, patient draped, Chlorhexidine allowedto dry Laterality: left Skin Medication lidocaine 1% [...] Length: 5 cm Gauge: 22 Needle Type: R-wssni-dycuj or Pajunk Medication injection made incrementally with aspirations. Nerve infiltration solution through a needle Ropivicaine 0.5% 30 mL Additional Notes Block placed pre-op for p op pain control, after IC. Uneventful placement, he tolerated the procedure well. Resident: Second Resident: Fellow: Attending Physician: MEREDITH BARBER ~~~~~~~~~~~~~~~~~~~~~~~~~~~~~~~~~~~~~~~~~~~~~~~~~~~~~~~~~~~~ * Anesthesia Preprocedure Evaluation - Meredith Barber DO - 03/14/2016 7:11 AM EST Pre-Anesthesia Evaluation for: Derrick Levine Ovidio a 60 y.o. male. Procedure(s): REPAIR NONUNION [...] Procedure Name Priority Date/Time Associated Diagnosis Comments ANESTHESIA BLOCK Routine 03/14/2016 8:10 AM EST Procedure Note - Meredith Barber DO - 03/14/2016 8:08 AM ESTThis note is in progress. Procedure: Anesthesia Block Block: Post-op Pain Control, supraclavicular nerve block Start time: 03/14/2016 7:59 AM End time: 03/14/2016 8:05 AM Patient Location: Block Room Pre-Op Indication/Prep Position: sitting Prep: chlorhexidine, mask, cap, sterile gloves, hand hygeine, patientdraped, Chlorhexidine allowed to dry Laterality: left Skin Medication lidocaine 1% 4 ml Injection Information Ultrasound Guidance: live and in-plane Ultrasound guidance was used to identify the targeted neuronalstructure. Ultrasound was also used to identify needle positon and toidentify surrounding tissue (bone, muscle, and blood vessels) to preventinadvertent intraneural or intravascular needle placement and injection.The spread of local anesthetic was confirmed with live ultrasoundimaging. Injection technique:single-shot Needle Length: 5 cm Gauge: 22 Needle Type: C-ogxzb-jaokd or Pajunk Medication injection made incrementally with aspirations. Nerve infiltration solution through a needle Ropivicaine 0.5% 30 mL Additional Notes Block placed pre-op for p op pain control, after IC. Uneventful placement,he tolerated the procedure well. Resident: Second Resident: Fellow: Attending Physician: MEREDITH BARBER ~~~~~~~~~~~~~~~~~~~~~~~~~~~~~~~~~~~~~~~~~~~~~~~~~~~~~~~~~~~~ documented in this encounter Visit Diagnoses Not on filedocumented in this encounter Administered Medications Inactive Administered Medications - up to 3 most recent administrations Medication Order MAR Action Action Date Dose Rate Site albuterol (PROVENTIL HFA;VENTOLIN HFA;PROAIR) 90 mcg/actuation inhaler PRN, Starting on Sun03/14/16 at 0838, Until Sun03/14/16 at 1104, Wheezing, Anesthesia Intra-op, Routine Given 03/14/2016 10:47 AM EST 6 puffs Given 03/14/2016 8:38 AM EST 6 puffs ceFAZolin (ANCEF) 2 gram/50 mL infusion 1 dose, Starting on Sun03/14/16 at 0812, Until Sun03/14/16 at 0830, KAREN CHAIREZ: cabinet override Given 03/14/2016 8:30 AM EST 2 g dexamethasone (DECADRON) injection PRN, Starting on Sun03/14/16 at 0832, Until Sun03/14/16 at 1104, Anesthesia Intra-op, Routine Given 03/14/2016 8:32 AM EST 8 mg ePHEDrine 5 mg/mL multi-dose injection PRN, Starting on Sun03/14/16 at 0829, Until Sun03/14/16 at 1104, Anesthesia Intra-op, Routine Given 03/14/2016 10:30 AM EST 5 mg Given 03/14/2016 10:22 AM EST 5 mg Given 03/14/2016 10:15 AM EST 5 mg fentaNYL 50 mcg/mL multi-dose injection PRN, Starting on Sun03/14/16 at 0825, Until Sun03/14/16 at 1104, Pain, Anesthesia Intra-op, Routine Given 03/14/2016 10:20 AM EST 10 mcg Given 03/14/2016 9:38 AM EST 10 mcg Given 03/14/2016 9:15 AM EST 25 mcg lactated ringers infusion 1,000 mL 1,000 mL, at 100 mL/hr, Intravenous, CONTINUOUS, Starting on Sun03/14/16 at 0745, Until Sun03/14/16 at 1347, Day of Surgery (Day of Procedure) New Bag 03/14/2016 9:06 AM EST New Bag 03/14/2016 7:53 AM EST 1,000 mLs 100 mL/hr lidocaine (PF) (XYLOCAINE) 100 mg/5 mL (2 %) injection PRN, Starting on Sun03/14/16 at 0825, Until Sun03/14/16 at 1104, Anesthesia Intra-op, Routine Given 03/14/2016 8:25 AM EST 50 mg ondansetron (ZOFRAN) injection PRN, Starting on Sun03/14/16 at 0939, Until Sun03/14/16 at 1104, Nausea, Anesthesia Intra-op, Routine Given 03/14/2016 9:39 AM EST 4 mg PHENYLephrine HCl in NS (PF) (JULIO-SYNEPHRINE) 0.8 mg/10 mL (80 mcg/mL) multi-dose injection Syrg PRN, Starting on Sun03/14/16 at 0828, Until Sun03/14/16 at 1104, Anesthesia Intra-op, Routine Given 03/14/2016 10:30 AM EST 80 mcg Given 03/14/2016 10:22 AM EST 80 mcg Given 03/14/2016 9:34 AM EST 80 mcg propofol (DIPRIVAN) 10 mg/mL bolus injection (Anesthesia) PRN, Starting on Sun03/14/16 at 0825, Until Sun03/14/16 at 1104, Anesthesia Intra-op Given 03/14/2016 8:26 AM EST 50 mg Given 03/14/2016 8:25 AM EST 150 mg propofol (DIPRIVAN) infusion CONTINUOUS PRN, Starting on Sun03/14/16 at 0835, Until Sun03/14/16 at 1104, Anesthesia Intra-op, Routine Rate/Dose Change 03/14/2016 9:57 AM EST 50 mcg/kg/min 27.2 mL/hr Rate/Dose Change 03/14/2016 9:22 AM EST 60 mcg/kg/min 32.7 mL/hr Rate/Dose Change 03/14/2016 9:11 AM EST 50 mcg/kg/min 27.2 mL/hr documented in this encounter Care Teams Caddymaster Relationship Specialty Start Date End Date Sherri Guzman MD [address] [place] [address] PCP - General Family Medicine 12/21/15 documented as of this encounter
--- OUTSIDE RECORDS SUMMARY | 2023-11-30 15:17 | XMS_ITS | Encounter Summary ---
Author Organization [facility] Address [facility] [place] [address] Care Team Providers Care Manager Agriculture Name Role Phone Sherri Guzman MD Primary Care Provider [phone] Reason for Visit * Reason Comments Follow Up Surgery sp left dist rad ost eotomy with allograft bone graft dos 03/14/16 doi 11/2013 DOI new fall 03/27/16 Encounter Details Date Type Department Care Team (Late st Contact Info) Description 03/29/2016 9:35 AM EST Office [place] [address] Rabia Bolaños MD [facility] [place] [address] 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 Bolaños. The patient removed splint himself prior to appointment. The patient was then sent to x-ray. * Dena So MD - 03/29/2016 9:35 AM [...] ulnar nerve distributions. 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 * Piper Goldsmith - 03/29/2016 9:35 AM EST Derrick Nolan presents to the cast room for a cast on per Dr. So. The patient's skin is intact. The patient is going into a well padded short arm cast on the left side. The patient tolerated the procedure well. The patient was given instructions for cast care and was given instruction to call the nurse with any questions or concerns. * Rbaia Bolaños MD - 03/29/2016 9:35 AM EST I examined Derrick Abner Vidalesguido and I agree with Dr. So's note. RABIA BOLAÑOS MD documented in this encounter Plan of Treatment Not on file documented as of this encounter Results * XR Wrist Complete Min 3 views Left (Generic) (05/01/2016 12:47 PM EST) Anatomical Region Laterality Modality Left Digital Radiogra phy Impressions 05/01/2016 4:22 PM EST Interval healing of left distal radius osteotomy and bone grafting. No change in alignment. I have personally reviewed the image(s) and the residents interpretation and agree with the findings, Rachel Borrego at 05/01/2016 4:22 PM Narrative 05/01/2016 4:22 PM EST EXAMINATION: XR WRIST COMPLETE MIN 3 VIEWS LEFT (GENERIC) CLINICAL HISTORY: s/p ORIF L distal radius with bone grafting for malunion; assessment of interval change/healing TECHNIQUE: 3 views of the left wrist COMPARISON: Left wrist radiographs March 29, 2016 and March 25, 2015 FINDINGS: Patient is status post screw and dorsal plate fixation, osteotomy and bone grafting of the distal radius for malunion. No interval change in the position or alignment of the hardware. No periprosthetic fracture. Osteotomy line remains visible though less distinct with previous callus formation. Diffuse decreased osseous mineralization consistent with disuse. Procedure Note Rachel Borrego MD - 05/01/2016 EXAMINATION: XR WRIST COMPLETE MIN 3 VIEWS LEFT (GENERIC) CLINICAL HISTORY: s/p ORIF L distal radius with bone grafting formalunion; assessment of interval change/healing TECHNIQUE: 3 views of the left wrist COMPARISON: Left wrist radiographs March 29, 2016 and March 25, 2015 FINDINGS: Patient is status post screw and dorsal plate fixation, osteotomy andbone grafting of the distal radius for malunion. No interval change in theposition or alignment of the hardware. No periprosthetic fracture. Osteotomy lineremains visible though less distinct with previous callus formation. Diffusedecreased osseous mineralization consistent with disuse. IMPRESSION Interval healing of left distal radius osteotomy and bone grafting. Nochange in alignment. 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
--- OUTSIDE RECORDS SUMMARY | 2023-11-30 15:17 | XMS_ITS | Encounter Summary ---
Author Organization [facility] Address [facility] [place] [address] Care Team Providers Care Director Of Medicare Name Role Phone Sherri Guzman MD Primary Care Provider [phone] Encounter Details Date Type Department Care Team (Late st Contact Info) Description 06/24/2023 Ancillary Procedure Radiology Library at [facility] [place] [address] Sherri Guzman MD [address] [place] [address] Social History Tobacco Use Types Packs/Day Years [...] FILM LIBRARY STORAGE ONLY DX CHEST Routine 06/24/2023 12:00 AM EDT documented in this encounter Results * Film Library- Storage Only DX Chest (06/24/2023 12:00 AM EDT) Narrative LINDA - 06/25/2023 9:32 AM EDT This exam is auto-finalizing. It's purpose is for storage only. Sherri Guzman MD IMG FILM LIBRARY ORD ERABLES [place], [place] documented in this encounter Visit Diagnoses Not on filedocumented in this encounter Care Teams Director Of Medicare Relationship Specialty Start Date End Date Sherri Guzman MD [address] [place] [address] PCP - General Family Medicine 12/21/15 documented as of this encounter
--- OUTSIDE RECORDS SUMMARY | 2023-11-30 15:17 | XMS_ITS | Encounter Summary ---
Author Organization [facility] Address [facility] [place] [address] Care Team Providers Care Newcomer Hostess Name Role Phone Sherri Guzman MD Primary Care Provider [phone] Reason for Visit * Reason Comments Follow-up L dist rad osteotomy DOI 11/2013 DOS 03/14/16 Encounter Details Date Type Department Care Team (Late st Contact Info) Description 06/12/2016 3:10 PM EDT [place] [address] Rabia Bolaños MD [facility] ORTHOPAEDIC [place] [address] Closed fracture of distal end of left [...] kg (205 lb) 06/12/2016 3:04 PM EDT alem bal Height 177.8 cm (5' 10) 06/12/2016 3:04 PM EDT verbal Body Mass Index 29.41 06/12/2016 3:04 PM EDT documented in this encounter Progress Notes * Mikhail Suh Cole - 06/12/2016 3:10 PM EDT DATE OF [...] well healed. He has 5/5 strength to manager deli, wrist flexion, wrist extension. He can retropulse [...] was seen and examined with Dr. Bolaños. * Rabia Bolaños MD - 06/12/2016 3:10 PM EDT I examined Derrick Nolan and I agree with Dr. Suh's note. RABIA BOLAÑOS MD documented in this encounter Plan of Treatment Not on file documented as of this encounter Results * XR Wrist Complete Min 3 views Left (Generic) (08/14/2016 2:09 PM EDT) Anatomical Region Laterality Modality Left Digital Radiogra phy Impressions 08/14/2016 2:13 PM EDT Evidence for ongoing healing of the fracture of the distal left radius, with stabilization by hardware, intact Narrative 08/14/2016 2:13 PM EDT EXAMINATION: XR WRIST COMPLETE MIN 3 VIEWS LEFT (GENERIC) CLINICAL HISTORY: s/p distal radius osteotomy, question healing TECHNIQUE: 3 views of the left wrist COMPARISON: 06/12/2016 FINDINGS: The dorsally positioned plate and multiple transverse screws in the distal left radius appear stable and intact. There is evidence for a healing fracture of the metadiaphyseal junction of the left radius particularly as seen on the oblique view, concentrating on the mid and lateral margin of the osteotomy site. Fracture line is no longer seen and increasing trabecular sclerotic changes noted Procedure Note Andrés Dinero MD - 08/14/2016 EXAMINATION: XR WRIST COMPLETE MIN 3 VIEWS LEFT (GENERIC) CLINICAL HISTORY: s/p distal radius osteotomy, question healing TECHNIQUE: 3 views of the left wrist COMPARISON: 06/12/2016 FINDINGS: The dorsally positioned plate and multiple transverse screws in the distalleft radius appear stable and intact. There is evidence for a healing fractureof the metadiaphyseal junction of the left radius particularly as seen on theoblique view, concentrating on the mid and lateral margin of the osteotomy site. 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
--- OUTSIDE RECORDS SUMMARY | 2023-11-30 15:17 | XMS_ITS | Encounter Summary ---
Author Organization [facility] [place] [address] Care Team Providers Care Tug Master Name Role Phone Sherri Guzman MD Primary Care Provider [phone] Encounter Details Date Type Department Care Team (Late st Contact Info) Description 09/19/2019 [place] [id number] Christine Gonzalez Social History Tobacco Use Types Packs/Day Years [...] encounter Miscellaneous Notes * Telephone Encounter - Christine Gonzalez - 09/19/2019 1:58 PM EDT Called out to Mr. Nolan in regards to an email from Dr. Preston regarding Mr. Nolan's 11 day old thumb laceration with FPL and nerve involvement that he would like Dr. Bolaños to operate on. I had a lengthy conversation with Mr. Nolan who discussed his confusion and frustration regardingthe timing and scheduling of surgery in regards to his eye surgery that he has scheduled. He ideally would like to have the hand fixed on Sunday so that he can proceed with his procedure for his eyes on Sunday. I informed him that we do not operate in clinic and that Dr. Bolaños seems hue in the OR on Sunday and Sunday [...] on filedocumented in this encounter Care Teams Tug Master Relationship Specialty Start Date End Date Sherri Guzman MD [address] [place] [address] PCP - General Family Medicine 12/21/15 documented as of this encounter
--- OUTSIDE RECORDS SUMMARY | 2023-11-30 15:17 | XMS_ITS | Encounter Summary ---
Author Organization [facility] Address [facility] [place] [address] Care Team Providers Care Mine Wedge Sawyer Name Role Phone Sherri Guzman MD Primary Care Provider [phone] Encounter Details Date Type Department Care Team (Latest Contact Info) Description 08/14/2016 1:45 PM EDT - 08/14/2016 11:59 PM EDT Hospital Encounter XRay at [address] [place] [address] Jared Bolaños MD [facility] [place] [address] Closed fracture of distal end of left [...] Comments XR WRIST 3 VIEWS LEFT Routine 08/14/2016 2:09 PM EDT Closed fracture of distal end [...] distal left radius,with stabilization by hardware, intact Jared Bolaños MD IMG DX ORDERABLES documented in this encounter Visit Diagnoses Diagnosis 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
--- OUTSIDE RECORDS SUMMARY | 2023-11-30 15:17 | XMS_ITS | Encounter Summary ---
Author Organization [facility] Address [facility] [place] [address] Care Team Providers Care Card Cutter Helper Name Role Phone Sherri Guzman MD Primary Care Provider Encounter Details Date Type Department Care Team (Late st Contact Info) Description 06/21/2023 Ancillary Procedure Radiology Library at [facility] [place] [address] Sherri Guzman MD [address] [place] [address] Social History Tobacco Use Types Packs/Day Years [...] FILM LIBRARY STORAGE ONLY DX CHEST Routine 06/21/2023 12:00 AM EDT documented in this encounter Results * Film Library- Storage Only DX Chest (06/21/2023 12:00 AM EDT) Narrative LINDA - 06/25/2023 9:32 AM EDT This exam is auto-finalizing. It's purpose is for storage only. Sherri Guzman MD IMG FILM LIBRARY ORD ERABLES [facility] [place], [place] documented in this encounter Visit Diagnoses Not on filedocumented in this encounter Care Teams Card Cutter Helper Relationship Specialty Start Date End Date Sherri Guzman MD [address] [place] [address] PCP - General Family Medicine 12/21/15 documented as of this encounter
--- OUTSIDE RECORDS SUMMARY | 2023-11-30 15:17 | XMS_ITS | Encounter Summary ---
Author Organization [facility] Address [facility] [place] [address] Care Team Providers Care Appliance Painter And Refinisher Name Role Phone Sherri Guzman MD Primary Care Provider [phone] Encounter Details Date Type Department Care Team (Latest Contact Info) Description 05/01/2016 12:24 PM EST - 05/01/2016 11:59 PM [facility] Hospital Encounter XRay at [address] [place] [address] Jared Bolaños MD [facility] [place] [address] Closed fracture of distal end of left [...] Comments XR WRIST 3 VIEWS LEFT Routine 05/01/2016 12:47 PM EST Closed fracture of distal end of [...] findings, Rachel Borrego at 05/01/2016 4:22 PM Jared Bolaños MD IMG DX ORDERABLES documented in this encounter Visit Diagnoses Diagnosis Closed fracture of distal end of left radius with malunion, unspecified fracture morphology, subsequent encounter documented in this encounter Care Teams Appliance Painter And Refinisher Relationship Specialty Start Date End Date Sherri Guzman MD [address] [place] [address] PCP - General Family Medicine 12/21/15 documented as of this encounter
--- OUTSIDE RECORDS SUMMARY | 2023-11-30 15:17 | XMS_ITS | Encounter Summary ---
Author Organization [facility] Address [facility] [place] [address] Care Team Providers Care Contemporary Or Modern Dancer Name Role Phone Sherri Guzman MD Primary Care Provider [phone] Reason for Visit * Occupational Therapy (Routine) - Closed Specialty Diagnoses / Procedures Referred By Frank caraballo Referred To Contact Occupational Therapy Diagnoses Closed fracture of distal end of left radius with malunion, unspecified fracture morphology, subsequent encounter Niecy Sosa PA [facility] [place] [address] [facility] [address] [place] [address] Referral ID Status Reason Start Date Expiration Date V isits Requested Visits Authorized [id number] Closed Evaluate and Treat 05/01/2016 05/01/2017 1 1 Encounter Details Date Type Department Care Team (Late st Contact Info) Description 05/01/2016 2:15 PM EST Office Visit Occupational Therapy at [facility] [address] [place] [phone] Leland Sagastume OT [facility] PHYSICAL MEDICINE & [place] [address] Closed fracture of distal end of left [...] as of this encounter Progress Notes * Chinedu Post - 05/01/2016 2:15 PM EST OCCUPATIONAL THERAPY [...] performance due to pain, swelling, stiffness and limitedmobility/range of motion causing functional deficits in his daily occupations. Global Mental Function: With gross screening of patient???s global mental functions, patient demonstrates orientation to person, place, time, and situation. Patient???s affect/behavior is appropriateand cooperative today. Patient Specific Functional Scale (PSFS) [...] Exercises: FDS/FDP tendon glides, Digit flexion/extension, wrist flexion/extension,wrist pronation/supination, and composite wrist flexion/extension to reduce joint stiffness, edema,and improve mobility CLINICAL DECISION MAKING: Derrick Nolan has a well fitting orthosis post therapy. Derrick Nolan has pain, swelling, stiffness, and limited mobility in his left wrist causing functional deficits in his daily occupations. Derrick Nolan is able to independently verbalize and demonstratethe recommended home program following instructions today. Derrick [...] with home exercises as evident with demonstration in therapy. Goal Status: Meets PLAN: Derrick Nolan plans to complete therapy closer to home but knows to call with any questions or concerns. (X) Derrick Nolan participated in the evaluation, collaborated on treatment goals, and agrees to the treatment plan . * Leland Sagastume OT - 05/01/2016 2:15 PM [...] sustained a left distal radius fracture without correcthealing requiring left distal radius osteotomy with allograft [...] performance due to pain, swelling, stiffness and limitedmobility/range of motion causing functional deficits in his daily occupations. Global Mental Function: With gross screening of patient???s global mental functions, patient demonstrates orientation to person, place, time, and situation. Patient???s affect/behavior is appropriateand cooperative today. Patient Specific Functional Scale (PSFS) [...] Exercises: FDS/FDP tendon glides, Digit flexion/extension, wrist flexion/extension,wrist pronation/supination, and composite wrist flexion/extension to reduce joint stiffness, edema,and improve mobility. CLINICAL DECISION MAKING: Derrick Nolan has a well fitting orthosis post therapy. Derrick Nolan has pain, swelling, stiffness, and limited mobility in his left wrist causing functional deficits in his daily occupations. Derrick Nolan is able to independently verbalize and demonstratethe recommended home program following instructions today. Derrick [...] with home exercises as evident with demonstration in therapy. Goal Status: Meets PLAN: Derrick Nolan plans to complete therapy closer to home but knows to call with any questions or concerns. I was present throughout today's treatment of the patient with my student participating. Following treatment I've reviewed, discussed and provided feedback to my occupational therapy student in whichupdates to the note were made. I concur with the note as written and recommend continuing treatmentper Plan of Care as written. (X) Derrick [...] Ordered: 05/01/2016 documented as of this encounter Visit Diagnoses Diagnosis Closed fracture of distal end of left radius with malunion, unspecified fracture morphology, subsequent encounter documented in this encounter Care Teams Contemporary Or Modern Dancer Relationship Specialty Start Date End Date Sherri Guzman MD [address] [place] [address] PCP - General Family Medicine 12/21/15 documented as of this encounter
--- OUTSIDE RECORDS SUMMARY | 2023-11-30 15:17 | XMS_ITS | Encounter Summary ---
Author Organization [facility] [place] [address] Care Team Providers Care Sizing Machine And Drier Operator Name Role Phone Sherri Guzman MD Primary Care Provider [phone] Encounter Details Date Type Department Care Team (Late st Contact Info) Description 06/25/2023 9:35 AM EDT Ancillary Procedure Radiology Library at [facility] [place] [address] Sherri Guzman MD [address] [place] [address] Social History Tobacco Use Types Packs/Day Years [...] Guzman MD IMG FILM LIBRARY ORD ERABLES [place], [place] documented in this encounter Visit Diagnoses Not on filedocumented in this encounter Care Teams Sizing Machine And Drier Operator Relationship Specialty Start Date End Date Sherri Guzman MD [address] [place] [address] PCP - General Family Medicine 12/21/15 documented as of this encounter
--- OUTSIDE RECORDS SUMMARY | 2023-11-30 15:18 | XMS_ITS | Encounter Summary ---
[place] [address] Care Team Providers Care Repairer Cylinder Heads Name Role Phone Sherri Guzman MD Primary Care Provider Encounter Details Date Type Department Care Team (Late st Contact Info) Description 11/06/2014 Orders Only [facility] [place] [address] Ananda Pena MD [address] [place] [address] [facility] [address] Social History Tobacco Use Types Packs/Day Years Used Date Smoking Tobacco: Never Assessed Sex and Gender Information Value Date Recorded Sex Assigned at Not on file Gender Identity Not on file Sexual Orientation Not on file documented as of this encounter Plan of Treatment Not on file documented as of this encounter Visit Diagnoses Not on filedocumented in this encounter Care Teams Repairer Cylinder Heads Relationship Specialty Start Date End Date Sherri Guzman MD [address] [place] [address] PCP - General 04/24/14 12/15/14 documented as of this encounter
--- OUTSIDE RECORDS SUMMARY | 2023-11-30 15:18 | XMS_ITS | Encounter Summary ---
Author Organization [facility] Address [facility] [place] [address] Care Team Providers Care Targeting Acquisition Officer Name Role Phone Unavailable Primary Care Provider Unavailabl e Encounter Details Date Type Department Care Team (Latest Contact Info) Description 12/16/2014 1:28 PM EDT - 12/16/2014 1:44 PM EDT Hospital Encounter XRay at [address] [place] [address] Ananda Pena MD [address] [place] [address] [place] [address] Trauma Discharge Disposition: Home Social History Tobacco Use Types Packs/Day Years Used Date Smoking Tobacco: Every Day Cigarettes Smokeless Tobacco: Never Comments:started smoking at 14, increased smoking at 18 Alcohol Use Standard Drinks/Week Comments Yes 10 (1 standard drink = 0.6 oz pure alcohol) some weeks none, some weeks up to 10 Sex and Gender Information Value Date Recorded Sex Assigned at Not on file Gender Identity Not on file Sexual Orientation Not on file documented as of this encounter Medications at Time of Discharge Medication Sig Dispensed Refills Start Date End Date COMBIVENT RESPIMAT 20-100 mcg/actuation Mist Inhale 2 puffs into the lungs every 4 hours as needed. 0 08/20/2014 buPROPion (WELLBUTRIN SR) 150 mg Tablet Sustained Release Take 150 mg by mouth 2 times daily. oxyCODONE (ROXICODONE) 5 mg Tablet Take 1-3 tablets by mouth every 4 hours as needed for Pain (give 5mg for pain 0-4; give 10mg for pain 5-7; give 15mg for pain 8-10). 20 tablet 0 12/18/2014 11/29/2015 traMADol (ULTRAM) 50 mg Tablet Take 50 mg by mouth every 6 hours as needed for Pain. 11/29/2015 aspirin 81 mg Tablet, Delayed Release (E.C.) Take 81 mg by mouth daily. 0 12/09/2014 11/29/2015 ipratropium-albuterol (DUONEB) 0.5 mg-3 mg(2.5 mg base)/3 mL Solution for Nebulization Take 0.5 mg by nebulization every 4 hours. 1 vial 4 11/19/2014 11/29/2015 propranolol (INDERAL) 80 mg Tablet Take 1 tablet by mouth 4 times daily. 11/19/2014 11/29/2015 documented as of this encounter Plan of Treatment Not on file documented as of this encounter Procedures Procedure Name Priority Date/Time Associated Diagnosis Comments XR CHEST PA AND LATERAL Routine 12/16/2014 1:42 PM EDT Trauma documented in this encounter Results * XR Chest Routine PA & Lateral (12/16/2014 1:42 PM EDT) Anatomical Region Laterality Modality Chest N/A Digital Radiogra phy Impressions 12/16/2014 2:07 PM EDT IMPRESSION: Interval resolution of right pleural effusion, and improved aeration of the lungs. I have personally reviewed the image(s) and the residents interpretation and agree with the findings, Juan Jones at 12/16/2014 2:07 PM Narrative 12/16/2014 2:07 PM EDT EXAMINATION: XR CHEST ROUTINE PA AND LATERAL CLINICAL HISTORY: s/p fall down stairs, s/p R rib fx, s/p R pleural effusion, evaluate pulmonary process TECHNIQUE: PA and lateral chest radiograph COMPARISON: Chest radiograph and chest CT dated November 06, 2014 FINDINGS: There has been interval resolution of the right pleural effusion. Improved aeration of the lungs bilaterally. A subcentimeter rounded opacity is seen in the right lower lung, unchanged from and corresponding to a calcified granuloma better characterized on CT dated 11/06/2014. The lungs are otherwise clear. The cardiomediastinal silhouette, ayush and pulmonary vasculature are within normal limits. There is no pneumothorax or pleural effusion. No interval osseous change. Procedure Note Juan Jones MD - 12/16/2014 EXAMINATION: XR CHEST ROUTINE PA AND LATERAL CLINICAL HISTORY: s/p fall down stairs, s/p R rib fx, s/p R pleuraleffusion, evaluate pulmonary process TECHNIQUE: PA and lateral chest radiograph COMPARISON: Chest radiograph and chest CT dated November 06, 2014 FINDINGS: There has been interval resolution of the right pleural effusion.Improved aeration of the lungs bilaterally. A subcentimeter rounded opacity is seenin the right lower lung, unchanged from and corresponding to a calcifiedgranuloma better characterized on CT dated 11/06/2014. The lungs are otherwise clear.The cardiomediastinal silhouette, ayush and pulmonary vasculature are withinnormal limits. There is no pneumothorax or pleural effusion. No intervalosseous change. IMPRESSION IMPRESSION: Interval resolution of right pleural effusion, and improved aeration ofthe lungs. I have personally reviewed the image(s) and the residents interpretationand agree with the findings, Juan Jones at 12/16/2014 2:07 PM Ananda Pena MD IMG DX ORDERABLES documented in this encounter Visit Diagnoses Diagnosis Trauma Injury, other and unspecified, unspecified site documented in this encounter
--- OUTSIDE RECORDS SUMMARY | 2023-11-30 15:18 | XMS_ITS | Encounter Summary ---
Author Organization [facility] Address [facility] [place] [address] Care Team Providers Care Veterinarian Laboratory Animal Care Name Role Phone Sherri Guzman MD Primary Care Provider [phone] Encounter Details Date Type Department Care Team (Latest Contact Info) Description 11/20/2014 - 11/20/2014 11:59 PM EDT Hospital Encounter Radiology Library at [facility] [place] [address] Jared Bolaños MD [facility] [address] Wrist pain, left Discharge Disposition: Home Social History Tobacco Use [...] by mouth 2 times daily. acetaminophen (TYLENOL) 325 mg Tablet Take 2 tablets by mouth every 6 hours. 30 tablet 1 11/19/2014 12/16/2014 bisacodyl (DULCOLAX) 5 mg Tablet, Delayed Release (E.C.) Take 2 tablets by mouth 2 times daily as needed for Constipation. 30 tablet 0 11/19/2014 12/16/2014 bisacodyl (DULCOLAX) [address] 1 suppository rectally daily as needed. 60 suppository 3 11/19/2014 12/16/2014 ipratropium-albuter ol (DUONEB) 0.5 mg-3 mg(2.5 mg base)/3 mL Solution for Nebulization Take 0.5 mg by nebulization every 4 hours. 1 vial 4 11/19/2014 11/29/2015 lidocaine (LIDODERM) 5 %(700 mg/patch) Adhesive Patch, Medicated Place 1 patch onto the skin daily. 30 patch 0 11/19/2014 12/16/2014 lisinopril (PRINIVIL;ZESTRIL) 10 mg Tablet Take 1 tablet by mouth daily. 30 tablet 12 11/19/2014 12/16/2014 miconazole (MICOTIN) 2 % Powder Apply topically 2 times daily. 70 g 0 11/19/2014 12/16/2014 multivitamin (THERAGRAN) Tablet Take 1 tablet by mouth daily. 11/19/2014 12/16/2014 nicotine (NICODERM CQ) 21 mg/24 [address] 1 patch onto the skin daily. 28 patch 0 11/19/2014 12/16/2014 oxyCODONE (ROXICODONE) 5 mg Tablet Take 1-3 tablets by mouth every 4 hours as needed for Pain (give 5mg for pain 0-4; give 10mg for pain 5-7; give 15mg for pain 8-10). 0 11/19/2014 12/16/2014 polyethylene glycol (MIRALAX) 17 gram Powder in Packet Take 17 g by mouth 2 times daily. 14 each 0 11/19/2014 12/16/2014 propranolol (INDERAL) 80 mg Tablet Take 1 tablet by mouth 4 times daily. 11/19/2014 11/29/2015 senna-docusate (PERICOLACE) 8.6-50 mg Tablet Take 4 tablets by mouth 2 times daily. 60 tablet 11 11/19/2014 12/16/2014 traZODone (DESYREL) 150 mg Tablet Take 1 tablet by mouth nightly. 90 tablet 3 11/19/2014 12/16/2014 gabapentin (NEURONTIN) 300 mg Capsule Take 900 mg by mouth 3 times daily. 12/16/2014 citalopram (CELEXA) 20 mg Tablet Take 20 mg by mouth daily. 12/16/2014 beclomethasone (QVAR) 40 mcg/actuation Aerosol Inhale 2 puffs into the lungs 2 times daily. 12/16/2014 documented as of this encounter Plan of Treatment Not on file documented as of this encounter Procedures Procedure Name Priority Date/Time Associated Diagnosis Comments FILM LIBRARY STORAGE ONLY DX WRIST Routine 11/20/2014 12:00 AM EDT Wrist pain, left documented in this encounter Results * Film Library- Storage only DX Wrist (11/20/2014 12:00 AM EDT) Narrative [facility] [place] - 11/09/2015 11:42 AM EDT This exam is for storage only and is auto-finalizing. Jared Bolaños MD IMG FILM LIBRARY ORD ERABLES Performing Organization Address City/State/[facility] Co de Phone Number [place], [place] documented in this encounter Visit Diagnoses Diagnosis Wrist pain, left Pain in joint, forearm documented in this encounter Care Teams Veterinarian Laboratory Animal Care Relationship Specialty Start Date End Date Sherri Guzman MD [address] [place] [address] PCP - General 04/24/14 12/15/14 documented as of this encounter
--- OUTSIDE RECORDS SUMMARY | 2023-11-30 15:18 | XMS_ITS | Encounter Summary ---
Author Organization [facility] Address [facility] [place] [address] Care Team Providers Care Private Branch Exchange Installer Name Role Phone Unavailable Primary Care Provider Unavailabl e Reason for Referral * Diagnostic X-Ray (Routine) - Closed Specialty Diagnoses / Procedures Referred By Contac t Referred To Contact Radiology Diagnoses Ulnar fracture, unspecified laterality, closed, initial encounter Procedures XR Hand Diagnostic Minimum 3 Views Meredith Jaimes APRN [address] [place] [address] [facility] Rad Xray [address] [place] [address] [place] [address] Referral ID Status Reason Start Date Expiration Date Visits Re quested Visits Authorized [id number] Closed 12/09/2014 12/09/2015 3 3 Reason for Visit * Diagnostic X-Ray (Routine) - Closed Specialty Diagnoses / Procedures Referred By Contac t Referred To Contact Radiology Diagnoses Ulnar fracture, unspecified laterality, closed, initial encounter Procedures XR Hand Diagnostic Minimum 3 Views Meredith Jaimes CLINICAL SALES CONSULTANT [address] [place] [address] [facility] Rad Xray [address] [place] [address] [place] [address] Referral ID Status Reason Start Date Expiration Date Visits Re quested Visits Authorized [id number] Closed 12/09/2014 12/09/2015 3 3 Encounter Details Date Type Department Care Team (Latest Contact Info) Description 12/16/2014 1:55 PM EDT - 12/16/2014 11:59 PM EDT Hospital Encounter XRay at [address] [place] [address] Ananda Pena MD [address] [place] [address] [address] Ulnar fracture, unspecified laterality, closed, initial encounter Social History Tobacco Use Types Packs/Day [...] Start Date End Date beclomethasone (QVAR) 40 mcg/actuation Aerosol Inhale 2 [...] 6 hours as needed for Pain. 11/29/2015 oxyCODONE (ROXICODONE) 5 mg Tablet Take 1-3 tablets by mouth every 4 hours as needed for Pain (give 5mg for pain 0-4; give 10mg for pain 5-7; give 15mg for pain 8-10). 20 tablet 0 12/16/2014 12/18/2014 traZODone (DESYREL) 150 mg Tablet Take 1 tablet by mouth nightly. 90 tablet 3 12/16/2014 11/29/2015 gabapentin (NEURONTIN) 300 mg Capsule Take 3 capsules by mouth 3 times daily. 90 capsule 0 12/16/2014 11/29/2015 ibuprofen (ADVIL;MOTRIN) 800 mg Tablet Take 1 tablet by mouth every 8 hours as needed for Pain. 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 Intra-articular fracture of the fifth DIP joint remains evident though distance to the fracture fragment has decreased. Narrative 12/16/2014 2:45 PM EDT EXAMINATION: XR HAND DIAGNOSTIC MINIMUM 3 VIEWS/LEFT, XR WRIST COMPLETE MINIMUM 3 VIEWS LEFT CLINICAL HISTORY: s/p 5th digit DIP fx, f/u to be associated with ortho f/u appointment TECHNIQUE: Oblique, PA and lateral views of the left hand and wrist COMPARISON: Limited view of the left wrist acquired as part of a study of the finger November 16, 2014 FINDINGS: Age unknown transverse distal radius sclerosis and irregularity consistent with remote fracture. Stable remodeling of the ulnar styloid also suggestive of chronic fracture. Normal alignment maintained about the carpus. Subtle sclerosis at site of the previous intra-articular fifth finger DIP joint. Fracture line remains identifiable though the distance to the fragment has decreased. Procedure Note Perla Morataya MD - 12/16/2014 EXAMINATION: XR HAND DIAGNOSTIC MINIMUM 3 VIEWS/LEFT, XR WRIST COMPLETEMINIMUM 3 VIEWS LEFT CLINICAL HISTORY: s/p 5th digit DIP fx, f/u to be associated with orthof/u appointment TECHNIQUE: Oblique, PA and lateral views of the left hand and wrist COMPARISON: Limited view of the left wrist acquired as part of a study ofthe finger November 16, 2014 FINDINGS: Age unknown transverse distal radius sclerosis and irregularity consistentwith remote fracture. Stable remodeling of the ulnar styloid also suggestiveof chronic fracture. Normal alignment maintained about the carpus. Subtle sclerosis at site of the previous intra-articular fifth finger DIPjoint. Fracture line remains identifiable though the distance to the fragmenthas decreased. 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 Intra-articular fracture of the fifth DIP joint remains evident thoughdistance to the fracture fragment has decreased. Ananda Pena MD IMG DX ORDERABLES documented in this encounter Visit Diagnoses Diagnosis Ulnar fracture, unspecified laterality, closed, initial encounter documented in this encounter
--- OUTSIDE RECORDS SUMMARY | 2023-11-30 15:18 | XMS_ITS | Encounter Summary ---
Author Organization [facility] [place] [address] Care Team Providers Care Online Publisher Name Role Phone Unavailable Primary Care Provider Unavailabl e Reason for Visit * Reason Comments Results had CT prior Encounter Details Date Type Department Care Team (Late st Contact Info) Description 12/23/2014 9:00 AM EDT Office Visit Neurosurgery at [facility] [place] [address] Meena Blake APRN [facility] [address] scan, head Social History Tobacco Use Types Packs/Day Years [...] documented in this encounter Progress Notes * Meena Sanchez APRN - 12/24/2014 3:10 PM [...] will follow-up with him by phone in 2months once he has established care with a PCP locally. * Meena Sanchez APRN - 12/23/2014 9:14 AM EDT HPI Patient admitted 11/06/14 2 days following fall downstairs. Multiple injuries identified and patient admitted to Trauma Service. Cervical spine injury managed by Orthopedics in [facility]. Neurosurgery consulted for R parietal density concerning for hemorrhage versus congenital venous anomaly. He returns today for scheduled head CT. Patient attempted MRI as an inpatient to further evaluate hemorrhage versus anomaly, but was unableto tolerate due to mental status change and claustrophobia. The limited exam conveyed that there were no flow voids concerning for AVM, no ischemia/infarct, and no overt evidence of hemorrhage. He returns today with scheduled head CT. He feels well in terms of his head injury. He is having what he describes as band-like headaches,which begin in his neck and radiate up and forward. He primarily reports pain in his posterior neckand low back (lumbar pain is chronic). He denies history of seizure or left hemibody weakness. His blood pressure was also quite elevated today, which he reports has been a chronic problem for him. He previously saw a PCP in [place], but is unable to get there now due to transportation difficulty. He was given the PCP line information at his visit with Orthopedics 12/09/14 but has not yet called to establish care. He is currently without opioid medication and is asking about having pain medicaito n refilled. On exam, he appears well and mildly fatigued. He is wearing a hard cervical collar. Pupils are equal and reactive, facial movement symmetric, tongue midline, shoulder shrug equal, diagnostic radiologic technologist symmetric, no pronator drift, UE/LE strength 5/5. Gait narrow-based and balanced. Head CT from today shows unchanged R lateral parietal density. No new hemorrhage. A/P: Patient with abnormal head CT following fall downstairs with findingins concerning for hemorrhage versus DVA. 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 We discussed the differential diagnoses in detail, including that DVA can be accompanied by an additional malformation, cavernoma, which would potentially merit additional clinical follow-up. We also discussed the limitation of CT for full evaluation of this, however, and that MRI would best evaluate what this finding means. He is extremely claustrophobic, so if MRI is indicated, then it would require IV sedation. I will review his case with Dr. Pierre to determine i f MRI is indicated in his case. If [...] collar is to be removed, physical therapy maybe helpful for mediating effects of cervicogenic headahces, which seem likely in his case. documented in this encounter Plan of Treatment Not on file documented as of this encounter Visit Diagnoses Diagnosis Abnormal CT scan, head Nonspecific (abnormal) findings on radiological and other examination of skull and head documented in this encounter
--- OUTSIDE RECORDS SUMMARY | 2023-11-30 15:18 | XMS_ITS | Encounter Summary ---
[place] [address] Care Team Providers Care Charm Filter Operator Helper Name Role Phone Sherri Guzman MD Primary Care Provider Reason for Visit * Reason Onset Date Comments Referral 04/28/2014 Encounter Details Date Type Department Care Team (Late st Contact Info) Description 04/28/2014 Telephone [place] [id number] Lea Martines Referral Social History Tobacco Use Types Packs/Day Years Used Date Smoking Tobacco: Never Assessed Sex and Gender Information Value Date Recorded Sex Assigned at Not on file Gender Identity Not on file Sexual Orientation Not on file documented as of this encounter Miscellaneous Notes * Telephone Encounter - Lea Martines - 04/28/2014 [...] on filedocumented in this encounter Care Teams Charm Filter Operator Helper Relationship Specialty Start Date End Date Sherri Guzman MD [address] [place] [address] PCP - General 04/24/14 12/15/14 documented as of this encounter
--- OUTSIDE RECORDS SUMMARY | 2023-11-30 15:18 | XMS_ITS | Encounter Summary ---
Author Organization [facility] Address [facility] [place] [address] Care Team Providers Care [place] Name Role Phone Unavailable Primary Care Provider Unavailabl e Reason for Visit * Reason Comments Left Wrist Pain DOI 11/22/14 * Consultation (Routine) - Specialty Diagnoses / Procedures Referred By Contac t Referred To Contact Orthopaedics Diagnoses Left wrist/ulnar pain s/p fracture - 2nd opinion Procedures Qamar Preston MD [address] [place] [address] Jared Bolaños MD [facility] [place] [address] Referral ID Status Reason Start Date Expiration Date V isits Requested Visits Authorized [id number] 11/09/2015 11/08/2016 1 1 Encounter Details Date Type Department Care Team (Late st Contact Info) Description 11/29/2015 10:15 AM EDT Office [place] [address] Jared Bolaños MD [facility] [place] [address] 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 * Lori Herrera RN - 11/29/2015 10:15 AM EDT Pro op teaching for general hand/wrist surgery left Closed fracture of distal end of left radius with malunion, unspecified fracture morphology, subsequent encounter [S52.731P] . Emphasis placed on post op hand elevation with hand above heart,fingers above palm,palm above wrist and wrist above elbow. This was demonstrated. Stressed no lifting of operative hand. Reviewed suggestions for taking post op pain medication. Questions solicited and answered to patient satisfaction. Written material provided. Patient knows to call with any additional questions or concerns. Of note patient is on [place] twice per day for back issue. He notes his PCP Is Tianna WareMT * Tarah Moore PA - 11/29/2015 10:15 AM [...]
--- OUTSIDE RECORDS SUMMARY | 2023-11-30 15:18 | XMS_ITS | Encounter Summary ---
Author Organization [facility] [place] [address] Care Team Providers Care Supervisor Dumping Name Role Phone Unavailable Primary Care Provider Unavailabl e Encounter Details Date Type Department Care Team (Late st Contact Info) Description 05/04/2015 Telephone Neurosurgery at [facility] [place] [address] Meena Blake APRN [facility] [place] [address] Social History Tobacco Use Types Packs/Day Years [...] encounter Miscellaneous Notes * Telephone Encounter - Meena Sanchez APRN - 05/04/2015 12:27 PM EST Call received from patient re: follow-up MRI. He declines further imaging. We discussed the inability to predict risk based on not knowing what his prior abnormal CT represents, and that cerebral hemorrhage is among the possible risks. He states understanding of this but does not wish to proceed with recommended follow-up MRI. Will follow prn. documented in this encounter Plan of Treatment Not on file documented as of this encounter Visit Diagnoses Not on filedocumented in this encounter
--- OUTSIDE RECORDS SUMMARY | 2023-11-30 15:18 | XMS_ITS | Encounter Summary ---
Author Organization [facility] Address [facility] [place] [address] Care Team Providers Care Certified Professional Coder Name Role Phone Unavailable Primary Care Provider Unavailabl e Encounter Details Date Type Department Care Team (Latest Contact Info) Description 12/23/2014 9:19 AM EDT - 12/23/2014 11:59 PM EDT Hospital Encounter XRay at [address] [place] [address] Ananda Pena MD [address] [place] [address] [place] [address] Pain of cervical spine Discharge Disposition: Home Social History Tobacco Use [...] 6 hours as needed for Pain. 11/29/2015 traZODone (DESYREL) 150 mg Tablet Take 1 [...] Name Priority Date/Time Associated Diagnosis Comments XR CERVICAL SPINE 1 VIEW Routine 12/23/2014 9:39 AM EDT Pain of cervical spine documented in this encounter Results * XR Cervical Spine 1 View (12/23/2014 9:39 AM EDT) Anatomical Region Laterality Modality C-spine N/A Digital Radiogra phy Impressions 12/23/2014 10:04 AM EDT IMPRESSION: 1. ??Diffuse osteoporosis. 2. ??Wedge compression deformities are seen involving the C4, C5 and C6 vertebrae as described above. 3. ??Evidence of degenerative disc disease at C4-5, C5-6 and C6-7. 4. ??Marginal osteophytic spurring arises from the C3-C7 vertebrae. Narrative 12/23/2014 10:04 AM EDT EXAMINATION: XR CERVICAL SPINE 1 VIEW CLINICAL HISTORY: s/p fall, cervical spine pain, PLEASE OBTAIN [...] space narrowing at C4-5, C5-6 and C6-7 consistent with degenerative disc disease. The remaining intervertebral disc spacings and vertebral body heights appeared adequately maintained. Vertebral body alignment appeared to be within normal limits. The odontoid process and spinous processes appeared intact. Marginal osteophytic spurring is seen arising from the C3-7 vertebrae. Procedure Note Jonathan Villalta, DO - 12/23/2014 EXAMINATION: XR CERVICAL SPINE 1 VIEW CLINICAL HISTORY: s/p fall, cervical spine pain, PLEASE OBTAIN FLEX/EXFILMS PRIOR TO SPINE CENTER APPOINTMENT TECHNIQUE: 1 standing lateral view. COMPARISON: None FINDINGS: There is diffuse osteoporosis. There are anterior wedge compressiondeformities involving the before meals 4, C5 and C6 vertebrae. There is an estimatedloss of approximately 50% of each vertebral body height. There is intervertebraldisc space narrowing at C4-5, C5-6 and C6-7 consistent with degenerative disc disease. The remaining intervertebral disc spacings and vertebral bodyheights appeared adequately maintained. Vertebral body alignment appeared to bewithin normal limits. The odontoid process and spinous processes appearedintact. Marginal osteophytic spurring is seen arising from the C3-7 vertebrae. IMPRESSION IMPRESSION: 1. Diffuse osteoporosis. 2. Wedge compression deformities are seen involving the C4, C5 and C7oggxzevim as described above. 3. Evidence of degenerative disc disease at C4-5, C5-6 and C6-7. 4. Marginal osteophytic spurring arises from the C3-C7 vertebrae. Ananda Pena MD IMG DX ORDERABLES documented in this encounter Visit Diagnoses Diagnosis Pain of cervical spine Cervicalgia documented in this encounter
--- OUTSIDE RECORDS SUMMARY | 2023-11-30 15:18 | XMS_ITS | Encounter Summary ---
Author Organization [facility] Address [facility] [address] Care Team Providers Care Client Onboarding Analyst Name Role Phone Unavailable Primary Care Provider Unavailabl e Reason for Visit * Reason Comments Neck Pain With Headaches Encounter Details Date Type Department Care Team (Late st Contact Info) Description 12/23/2014 11:00 AM EDT Office [place] [address] Juan Gilbert MD [facility] [place] [address] Neck pain Social History Tobacco Use Types Packs/Day Years [...] as of this encounter Progress Notes * Juan Gilbert MD - 12/23/2014 10:17 AM EDT Mr. Fernández is seen today in follow to her admission to [facility] two days after he fell down half [...]
--- OUTSIDE RECORDS SUMMARY | 2023-11-30 15:18 | XMS_ITS | Encounter Summary ---
Author Organization [facility] Address [facility] [place] [address] Care Team Providers Care It Support Technician Name Role Phone Unavailable Primary Care Provider Unavailabl e Reason for Referral * Occupational Therapy (Routine) - Closed Specialty Diagnoses / Procedures Referred By Frank caraballo Referred To Contact Occupational Therapy Diagnoses Mallet finger of right hand Joaquina Brooke MD [facility] ORTHOPAEDIC [place] [address] Referral ID Status Reason Start Date Expiration Date V isits Requested Visits Authorized [id number] Closed Evaluate and Treat 12/16/2014 06/14/2015 12 12 Reason for Visit * Reason Comments Left Wrist Fracture doi 11/04/14 Left Hand Fracture left small finger di st phal fx doi 11/04/14 Encounter Details Date Type Department Care Team (Late st Contact Info) Description 12/16/2014 2:00 PM EDT Office [place] [address] Rabia Bolaños MD [facility] DR ORTHOP[place] [address] Mallet finger of right hand small finger Social History Tobacco Use Types Packs/Day Years Used Date Smoking Tobacco: Every Day Cigarettes Smokeless Tobacco: Never Tobacco Cessation:Ready to Q uit: No; Counseling Given: No Comments:started smoking at 14, increased smoking at [...] kg (200 lb) 12/16/2014 3:06 PM EDT s tated Height 177.8 cm (5' 10) 12/16/2014 3:06 PM EDT stated Body Mass Index 28.7 12/16/2014 3:06 PM EDT documented in this encounter Progress Notes * Rabia Bolaños MD - 12/21/2014 12:39 PM EDT I examined Derrick Nolan and I agree with Dr. Brooke's note. RABIA BOLAÑOS MD * Joaquina Brooke MD - 12/16/2014 3:47 PM [...] two days later he did present to [facility] where he was found to have an intraparenchymal hemorrhage and some rib fractures. He was then subsequently transferred to [facility] as a trauma alert and was [...] 11/2013, which was treated nonoperatively, managed at [facility]; however since that time he describes [...] Therapy so that he can go to [facility] and have a mallet splint made, which we advised; however, if he wishes to come back and see us we will attempt to schedule another follow up visit so that he can discuss possible treatment options for his distal radius malunion and symptoms consistent with ulnar abutment. documented in this encounter Plan of Treatment Scheduled Referrals Name Type Priority Associated Diagnoses Order Schedule Referral to Occupational Therapy Outpatient Referral Routine Mallet finger of right hand small finger Ordered: 12/16/2014 documented as of this encounter Visit Diagnoses Diagnosis Mallet finger of right hand small finger Mallet finger documented in this encounter
--- OUTSIDE RECORDS SUMMARY | 2023-11-30 15:18 | XMS_ITS | Encounter Summary ---
Author Organization [facility] Address [facility] [place] [address] Care Team Providers Care Wind Operations Manager Name Role Phone Unavailable Primary Care Provider Unavailabl e Encounter Details Date Type Department Care Team (Late st Contact Info) Description 11/29/2015 Telephone Orthopaedics at [facility] [place] [address] Jared Bolaños MD [facility] [place] [address] Social History Tobacco Use Types Packs/Day Years [...] PM EDT Call received from Radiology at [facility]. They received a request for prior left wrist films. They do not have any images of the wrist to send. documented in this encounter Plan of Treatment Not on file documented as of this encounter Visit Diagnoses Not on filedocumented in this encounter
--- OUTSIDE RECORDS SUMMARY | 2023-11-30 15:18 | XMS_ITS | Encounter Summary ---
Author Organization [facility] Address [facility] [place] [address] Care Team Providers Care Water Vessel Captain Name Role Phone Unavailable Primary Care Provider Unavailabl e Encounter Details Date Type Department Care Team (Latest Contact Info) Description 12/18/2015 - 12/18/2015 11:59 PM EDT Hospital Encounter Radiology Library at [facility] [place] [address] Jared Bolaños MD [facility] [place] [address] Wrist pain, left Discharge Disposition: Home Social [...] 11/10/2015 03/29/2016 documented as of this encounter Plan of Treatment Not on file documented as of this encounter Procedures Procedure Name Priority Date/Time Associated Diagnosis Comments FILM LIBRARY STORAGE ONLY DX WRIST Routine 12/18/2015 12:00 AM EDT Wrist pain, left documented in this encounter Results * Film Library- Storage only DX Wrist (12/18/2015 12:00 AM EDT) Narrative [facility] - 11/09/2015 11:38 AM EDT This exam is for storage only and is auto-finalizing. Jared Bolaños MD IMG FILM LIBRARY ORD ERABLES Performing Organization Address City/State/[facility] Co de Phone Number LINDA [place], [place] documented in this encounter Visit Diagnoses Diagnosis Wrist pain, left Pain in joint, forearm documented in this encounter
--- OUTSIDE RECORDS SUMMARY | 2023-11-30 15:18 | XMS_ITS | Encounter Summary ---
Author Organization [facility] Address [facility] [place] [address] Care Team Providers Care Deck Worker Name Role Phone Unavailable Primary Care Provider Unavailabl e Encounter Details Date Type Department Care Team (Late st Contact Info) Description 04/28/2015 Orders Only Neurosurgery at [facility] [place] [address] Meena Blake APRN [facility] [place] [address] scan, head Social History Tobacco [...]
--- OUTSIDE RECORDS SUMMARY | 2023-11-30 15:18 | XMS_ITS | Encounter Summary ---
Author Organization [facility] [place] [address] Care Team Providers Care Sash Assembler Name Role Phone Unavailable Primary Care Provider Unavailabl e Reason for Visit * Reason Onset Date Comments Appointment 12/16/2014 Other 12/16/2014 Encounter Details Date Type Department Care Team (Late st Contact Info) Description 12/16/2014 Telephone [place] [address] Jared Bolaños MD [facility] OR[place] [address] Appointment; Other Social History Tobacco Use Types Packs/Day Years [...] * Telephone Encounter - Haleigh Rodriguez - 12/22/2014 7:47 AM EDT Unable to contact, letter sent * Telephone Encounter - Haleigh Rodriguez - 12/18/2014 1:36 PM EDT LM#2 to reschedule nguyen with dr bolaños, and find out about OT for bracing * Telephone Encounter - Haleigh Rodriguez - 12/16/2014 4:29 PM EDT Lm#1 to reschedule appt with Dr Bolaños for when ever is convenient for Derrick, also need to knowwhere he is going for OT for his brace in [facility] so we can send that referral. documented in this encounter Plan of Treatment Not on file documented as of this encounter Visit Diagnoses Not on filedocumented in this encounter
--- OUTSIDE RECORDS SUMMARY | 2023-11-30 15:18 | XMS_ITS | Encounter Summary ---
Author Organization [facility] Address [facility] [place] [address] Care Team Providers Care Manager Contact Name Role Phone Unavailable Primary Care Provider Unavailabl e Reason for Visit * Diagnostic X-Ray (Routine) - Closed Specialty Diagnoses / Procedures Referred By Frank t Referred To Contact Radiology Diagnoses Ulnar fracture, unspecified laterality, closed, initial encounter Procedures XR wrist 2 view Meredith Jaimes, PACKAGING SPECIALIST [address] [facility] [place] [address] [facility] Rad Xray [address] [place] [address] [place] [id number] Referral ID Status Reason Start Date Expiration Date Visits Re quested Visits Authorized [id number] Closed 12/09/2014 12/09/2015 3 3 Encounter Details Date Type Department Care Team (Latest Contact Info) Description 12/16/2014 1:45 PM EDT - 12/16/2014 1:54 PM EDT Hospital Encounter XRay at [address] [place] [id number] Ananda Pena MD [address] [facility] [place] [address] Ulnar fracture, unspecified laterality, closed, initial encounter [...] Comments XR WRIST 3 VIEWS LEFT Routine 12/16/2014 2:03 PM EDT Ulnar fracture, unspecified laterality, closed, initial encounter documented in this encounter Results * XR wrist complete minimum 3 views Left (GENERIC) (12/16/2014 2:03 PM EDT) Anatomical Region Laterality Modality Left Digital Radiogra phy Impressions 12/16/2014 2:45 PM [...]
--- OUTSIDE RECORDS SUMMARY | 2023-11-30 15:18 | XMS_ITS | Encounter Summary ---
Author Organization [facility] Address [facility] [place] [address] Care Team Providers Care Biological Lab Technician Name Role Phone Unavailable Primary Care Provider Unavailabl e Encounter Details Date Type Department Care Team (Latest Contact Info) Description 03/25/2015 - 03/25/2015 11:59 PM EST Hospital Encounter Radiology Library at [facility] [place] [address] Jarde Bolaños MD [facility] [place] [address] Wrist pain, left Discharge Disposition: Home Social [...] FILM LIBRARY STORAGE ONLY DX WRIST Routine 03/25/2015 12:00 AM EST Wrist pain, left documented in this encounter Results * Film Library- Storage only DX Wrist (03/25/2015 12:00 AM EST) Narrative LINDA - 11/09/2015 11:44 AM EDT This exam is for storage only and is auto-finalizing. Jared Bolaños MD [facility] FILM LIBRARY ORD ERABLES [place], [place] documented in this encounter Visit Diagnoses Diagnosis Wrist pain, left Pain in joint, forearm documented in this encounter
--- OUTSIDE RECORDS SUMMARY | 2023-11-30 15:18 | XMS_ITS | Encounter Summary ---
Author Organization [facility] Address [facility] [place] [address] Care Team Providers Care Nurses' Registry Director Name Role Phone Sherri Guzman MD Primary Care Provider [phone] Encounter Details Date Type Department Care Team (Late st Contact Info) Description 11/06/2014 Orders Only General Surgery at [facility] [place] [phone] Ananda Pena MD [address] [place] [address] [place] [address] Social History Tobacco Use Types Packs/Day Years Used Date Smoking Tobacco: Never Assessed Sex and Gender Information Value Date Recorded Sex Assigned at Not on file Gender Identity Not on file Sexual Orientation Not on file documented as of this encounter Plan of Treatment Not on file documented as of this encounter Procedures Procedure Name Priority Date/Time Associated Diagnosis Comments REQUEST FOR 2ND READ CT HEAD AND SPINE Routine 11/06/2014 8:22 PM EDT documented in this encounter Results * Request For 2nd Read CT Head And Spine (11/06/2014 8:22 PM EDT) Anatomical Region Laterality Modality Head, C-spine, T-spine, L-spine Other 11/06/2014 8:22 PM EDT Impressions 11/06/2014 8:59 PM EDT IMPRESSION: 1. Linear area of hyperdensity in the posterior lateral right frontal lobe. Differential for this appearance could include a large developmental venous anomaly versus a small parenchymal, unusually-shaped, hemorrhage. MR could distinguish between these two if clinically indicated. 2. No cervical, thoracic, or lumbar spine fracture. Narrative 11/06/2014 8:59 PM EDT EXAMINATION: OUTSIDE CT SPINE, OUTSIDE CT HEAD AND SPINE CLINICAL HISTORY: T/L/S Recon; What Modality is the exam? CT Scan; Body Part (please add comments as necessary): T/L/S Spine; I believe a reinterpretation of this exam may alter care of Patient. Yes TECHNIQUE: CT of the head and cervical spine performed without the use of intravenous contrast. CT images of the thoracic and lumbar spine reconstructed from separate chest/abdomen/pelvis. No additional intravenous contrast administered. COMPARISON: None FINDINGS: CT [...] Images are limited by lack of small [id number] axial images. Alignment of the thoracic spine appears normal. There is no acute thoracic spine fracture. Lumbar spine: There is retrolisthesis of L5 on S1. Alignment is otherwise preserved. There is loss disc height at L4-L5 and L5-S1. Only 5 mm thick axial slices are available. No acute fracture is identified. Procedure Note Chino Parham MD - 11/06/2014 EXAMINATION: OUTSIDE CT SPINE, OUTSIDE CT HEAD AND SPINE CLINICAL HISTORY: T/L/S Recon; What Modality is the exam? CT Scan; BodyPart (please add comments as necessary): T/L/S Spine; I believe areinterpretation of this exam may alter care of Patient. Yes TECHNIQUE: CT of the head and cervical spine performed without the useof intravenous contrast. CT images of the thoracic and lumbar spinereconstructed from separate chest/abdomen/pelvis. No additional intravenous contrast administered. COMPARISON: None FINDINGS: CT head: The ventricles are normal in size and contour. There is a lineararea of hyperdensity in the posterior lateral right frontal lobe with anappearance is unusual for hemorrhage, and this appears to extend to the ependymalsurface of the ventricle. 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 Thereare patchy areas of hypoattenuation the white matter probably representingsmall vessel ischemic change. No calvarial fracture. Cervical spine: There is straightening of the normal cervical lordosis.There is no acute cervical spine fracture. Extensive facet arthropathy is presenton the left at C2-C3. There are disc degenerative changes from C4 through C6 withlarge anterior osteophytes. There is a well-corticated osseous fragment adjacentto the lamina and spinous process of C3, this appears to be congenital anddoes not appear to represent an acute fracture. Thoracic spine: Images are limited by lack of small pmjpn-[id number]-ptkr axialimages. Alignment of the thoracic spine appears normal. There is no acute thoracicspine fracture. Lumbar spine: There is retrolisthesis of L5 on S1. Alignment isotherwise preserved. There is loss disc height at L4-L5 and L5-S1. Only 5 mm thickaxial slices are available. No acute fracture is identified. IMPRESSION IMPRESSION: 1. Linear area of hyperdensity in the posterior lateral right frontallobe. Differential for this appearance could include a large developmentalvenous anomaly versus a small parenchymal, unusually-shaped, hemorrhage. MRcould distinguish between these two if clinically indicated. 2. No cervical, thoracic, or lumbar spine fracture. Ruben Dillard MD IMG OUTSIDE INTERPRE TATION ORDERABLES documented in this encounter Visit Diagnoses Not on filedocumented in this encounter Care Teams Nurses' Registry Director Relationship Specialty Start Date End Date Sherri Guzman MD [address] [place] [address] PCP - General 04/24/14 12/15/14 documented as of this encounter
--- OUTSIDE RECORDS SUMMARY | 2023-11-30 15:18 | XMS_ITS | Encounter Summary ---
Author Organization [facility] Address [facility] [place] [address] Care Team Providers Care Telemarketing Supervisor Name Role Phone Unavailable Primary Care Provider Unavailabl e Encounter Details Date Type Department Care Team (Latest Contact Info) Description 12/23/2014 7:59 AM EDT - 12/23/2014 9:18 AM EDT Hospital Encounter CT Scan at [facility] [place] [address] Ananda Pena MD [address] [place] [address] [place] [address] Trauma Discharge Disposition: Home Social History Tobacco [...] Procedure Name Priority Date/Time Associated Diagnosis Comments CT HEAD WO CONTRAST (GENERIC) Routine 12/23/2014 8:10 AM EDT Trauma documented in this encounter Results * CT Head Wo Contrast (12/23/2014 8:10 AM EDT) Anatomical Region Laterality Modality Head Computed Tomogra phy Impressions 12/23/2014 11:39 AM EDT IMPRESSION: 1. ??No acute intracranial hemorrhage. 2. 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 Recommend comparison with outside head imaging if available. I have personally reviewed the image(s) and the residents interpretation and agree with the findings, Nadiya Smalls at 12/23/2014 11:39 AM Narrative 12/23/2014 11:39 AM EDT EXAMINATION: CT HEAD WO CONTRAST CLINICAL HISTORY: s/p fall down stairs, s/p IPH, evaluate IPH, evaluate brain pathology TECHNIQUE: Axial sections through the head were obtained without intravenous contrast. COMPARISON: CT head 11/06/2014 and MRI brain 11/08/2014 FINDINGS: Ventricles and sulci are of normal size and configuration for age. Linear area of hyperdensity in the posterior right frontal lobe is unchanged in configuration from prior CT 11/06/2014; this could possibly reflect a calcified thrombosed vein. Persistent subarachnoid blood products are considered less likely. No new areas of intraparenchymal hyperdensity to suggest an intraparenchymal or extra-axial hemorrhage. Similar appearance of patchy subcortical and periventricular hypoattenuation, particularly around the ventricular atria. There is no extra-axial collection, mass, focal intra-axial lesion, or loss of larkin-white differentiation. Paranasal sinuses and mastoids are clear. Osseous structures are of normal appearance; no calvarial fracture. No significant extracalvarial soft tissue swelling. The orbits are normal in appearance. Procedure Note Nadiya Smalls MD - 12/23/2014 EXAMINATION: CT HEAD WO CONTRAST CLINICAL HISTORY: s/p fall down stairs, s/p IPH, evaluate IPH, evaluatebrain pathology TECHNIQUE: Axial sections through the head were obtained withoutintravenous contrast. COMPARISON: CT head 11/06/2014 and MRI brain 11/08/2014 FINDINGS: Ventricles and sulci are of normal size and configuration forage. Linear area of hyperdensity in the posterior right frontal lobe isunchanged in configuration from prior CT 11/06/2014; this could possibly reflect acalcified thrombosed vein. Persistent subarachnoid blood products are consideredless likely. No new areas of intraparenchymal hyperdensity to suggest an intraparenchymal or extra-axial hemorrhage. Similar appearance of patchy subcortical and periventricular hypoattenuation, particularly around the ventricular atria. There is no extra-axial collection, mass, focalintra-axial lesion, or loss of larkin-white differentiation. Paranasal sinuses andmastoids are clear. Osseous structures are of normal appearance; no calvarialfracture. No significant extracalvarial soft tissue swelling. The orbits are normalin appearance. IMPRESSION IMPRESSION: 1. No acute intracranial hemorrhage. 2. Linear hyperattenuation in the posterior right frontal region whichmay represent a chronically thrombosed medullary vein given unchangedappearance over time. Recommend comparison with outside head imaging if available. I have personally reviewed the image(s) and the residents interpretationand agree with the findings, Nadiya Smalls at 12/23/2014 11:39 AM Ananda Pena MD IMG CT ORDERABLES documented in this encounter Visit Diagnoses Diagnosis Trauma Injury, other and unspecified, unspecified site documented in this encounter
--- OUTSIDE RECORDS SUMMARY | 2023-11-30 15:18 | XMS_ITS | Encounter Summary ---
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 Name Role Phone Sherri Rivas MD Primary Care Provider [phone] Reason for Referral * Diagnostic X-Ray (Routine) - Closed Specialty Diagnoses / Procedures Referred By Contac t Referred To Contact Radiology Diagnoses Ulnar fracture, unspecified laterality, closed, initial encounter Procedures XR Hand Diagnostic Minimum 3 Views Meredith Jaimes APRN [address] [place] [address] [facility] Rad Xray [address] [place] [address] [place] [address] Referral ID Status Reason Start Date Expiration Date Visits Re quested Visits Authorized [id number] Closed 12/09/2014 12/09/2015 3 3 * Consultation (Routine) - Closed Specialty Diagnoses / Procedures Referred By Contac t Referred To Contact Orthopaedics Diagnoses Pain of cervical spine Meredith Jaimes APRN [address] [place] [address] [facility] Spine [facility] [place] [address] Referral ID Status Reason Start Date Expiration Date V isits Requested Visits Authorized [id number] Closed Consult, Test & Treat 11/12/2014 11/12/2015 3 3 Encounter Details Date Type Department Care Team (Latest Contact Info) Description 11/06/2014 8:31 PM EDT - 11/19/2014 11:33 AM EDT Hospital Encounter [address] [place] [address] May Dillard MD [facility] [place] [address] Dorian Pena MD [address] [place] [address] [address] ST segment depression; Trauma; Abnormal brain CT; T wave inversion in EKG; Pain of cervical spine; Ulnar fracture, unspecified laterality, closed, initial encounter Discharge Disposition: Swing Bed Social History Tobacco Use Types Packs/Day Years [...] EDT documented in this encounter Discharge Summaries * , Meredith Galvan APRN - 11/19/2014 10:54 AM EDT Trauma and Acute Care Surgery Discharge Summary Patient Name: Derrick Hobson Patient Age: 59 y.o. : 1955 Attending Physician: Dorian Pena MD Date of Admission: 11/06/2014 Date of Discharge: 11/19/2014 Primary Diagnosis: Mr. 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 male admitted to [facility] on 11/06 s/p fall 2 days prior down stairs, injuries as discussed above. Neurosurgery was consulted for a linear density that was seen on his initial head CT, and it was treated as an IPH, but concern was had that it may be a congenital vascular anomaly which would not need the same treatment. A repeat head CT on HD #1 was found to be stable. An MRI was ordered, but given his mental status the study was incomplete. Thus, it was treated as a TBI with holding all anticoagulation, keeping SBP <160, and serial neuro exams. In ordered to maintain a blood pressure less than 160 given TBI, Mr. Hobson was started on his home Indural. His blood pressure continued to be elevated, so lisinopril 10mg daily was started with good effect. Given that this is a new medication this admission, patient should follow up with his PCPwithin 1-2 weeks of discharge to evaluate the continued need of this medication. A BMP was checked after starting the medication, and his Cr remained stable. On initial CT scan, mr. Hobson's cervical spine had no fractures. However, given mental status theMiami J collar was left in place. Once his mental status cleared, he continued to have right sided cervical paraspinal tenderness on exam. The Naknek J collar remained in place, and he is to follow upwith the spine center in 4 weeks for clearance with flex/ex xrays prior. Mr. Hobson also had a rib fracture with associated effusion noted on his initial CT scans. A repeat CXR showed no change in his effusion and he was able to be weaned to RA with aggressive pulmonary toilet. He is to follow up in the trauma clinic in 4 weeks with a repeat CXR prior to evaluate effusion. Also during this hospitalization, Mr. Hobson suffered from alcohol withdrawal. He was treated withscheduled and PRN ativan via the Ativan Assessment Scale. He was also treated for his pain adequately and kept on his home Trazodone to promote his sleep wake cycle. He gradually did not require the PRN ativan via the scale and the scheduled ativan was able to be weaned off. He did continue to be impulsive and slightly confused at night, likely from his TBI and hospital delirium. Upon discharge, his mental status was much improved and his scheduled Ativan was weaned off. On 11/16, Mr. Huttons mental status was much improved, and he began to complain of acute on chronic left wrist and 5th digit pain. The area was found to have minimal erythema, edema and a bony deformity of the lateral aspect of the wrist. Of note, the patient has had a previous radial/ulnar injuryin November of 2013. Xrays were obtained, and a deformity of the distal radius and ulna as well asa 5th digit DIP joint fracture was seen. Orthopedics was consulted and he was placed in a resting volar splint for 4 weeks, when he will have repeat xrays and follow up with orthopedics. He is now NWB on his LUE. Derrick Huttons pain was adequately controlled, he was maintaining adequate oxygen saturation onroom air, and was hemodynamically stable. He was tolerating a diet without abdominal complaints andvoiding adequately. WBC and Hgb were stable. He [...] ?? SPINE: - TLS cleared - Cont kotlik J collar today given tenderness on exam- [...] Images are limited by lack of small [id number] axial images. Alignment of the thoracic spine [...] Exam: GENERAL: Interactive, appropriate HEENT: Normocephalic, atraumatic; Naknek J collar in place LUNG: CTAB CARDIAC: Regular rate and rhythm or without murmur or extra heart sounds ABDOMEN/GI: Obese, soft, NT/ND SKIN: No rashes EXTREM: WWP, L wrist/hand splinted, fingers WWP, edema improved NEURO: Alert, MAEW, follows commands X 4 Current Medications: The following medications have been prescribed for you. If you notice any adverse reactions to yourmedications, please contact your primary care physician immediately [...] removed. Continue taking this medication, and follow the directions you see here. 150 mg Quantity: 90 [...] 10:30 AM Jolly Ruvalcaba APRN Leb Surg [facility] 12/11/2014 1:00 PM [facility] CT [address] [facility] 12/11/2014 2:00 PM Meena Sanchez APRN Le[facility]NeuroS 3C [facility] 12/11/2014 4:20 PM Jacquelyn Maynard APRN Leb Spine [facility] Outpatient Services/Studies: CT Head Wo [...] Yes pager / telephone number to contact [phone] XR Cervical Spine 2 Or 3 Views [...] speaking. It is important to seek medical attentionas soon as possible, as these symptoms could [...] heavy equipment until your follow up appointment inthe trauma and/or neurosurgery clinic because your ability [...] needs to be worn at all times, until discussed with your surgeon at your follow-up appointment. 2. Remember when you are removing the collar to change the dressing or to dry the area after a shower you must stabilize your neck. Have another person hold your head while the front or back of the collar is removed. Your head should be held in place until the collar is reconnected. Remember that when the collar is off your head/neck should be [...] harder than usual to remember things, write them down. 19. Avoid alcohol and non-prescribed medications other than acetaminophen (Tylenol) when possible. They can increase drowsiness and sedation. 20. If prescribed opoid medication for pain, do not drive while taking these medications 21. Headache, nausea/vomiting, imbalance, and/or fatigue are common symptoms after suffering a headinjury. They will slowly subside over the next [...] in activity can cause constipation. Stool softeners, mildlaxatives, or prunes or prune juice daily, may be used as needed. Anti-coagulation follow up: No aspirin, heparin, NSAIDs or anticoagulants because these medicationsmay increase your risk of worsening your head injury. Your care was managed by the Trauma and Acute Care Surgery Team at [facility]. If you have any questions or concerns, please feel free to contact us. Provider Contact Information: General Surgery Clinic: General Surgery Nurses line: [phone] [facility] (after business hours): General Instructions None Your care was managed by the Trauma and Acute Care Surgery Team at [facility]. If you have any questions or concerns, please feel free to contact us. Provider Contact Information: General Surgery Clinic: Nurses line for questions: [facility] (after business hours): CC: SHERRI RIVAS MD (General) Lori Ruvalcaba APRN Signed: MEREDITH ALONSO APRN Department of Surgery 11/19/2014 documented in this encounter Discharge Instructions * Patient Instructions* Meredith Alonso APRN - 11/12/2014 1:56 PM EDT Head [...] speaking. It is important to seek medical attentionas soon as possible, as these symptoms could [...] heavy equipment until your follow up appointment inthe trauma and/or neurosurgery clinic because your ability [...] needs to be worn at all times, until discussed with your surgeon at your follow-up appointment. 2. Remember when you are removing the collar to change the dressing or to dry the area after a shower you must stabilize your neck. Have another person hold your head while the front or back of the collar is removed. Your head should be held in place until the collar is reconnected. Remember that when the collar is off your head/neck should be [...] harder than usual to remember things, write them down. 19. Avoid alcohol and non-prescribed medications other than acetaminophen (Tylenol) when possible. They can increase drowsiness and sedation. 20. If prescribed opoid medication for pain, do not drive while taking these medications 21. Headache, nausea/vomiting, imbalance, and/or fatigue are common symptoms after suffering a headinjury. They will slowly subside over the next [...] in activity can cause constipation. Stool softeners, mildlaxatives, or prunes or prune juice daily, may be used as needed. Anti-coagulation follow up: No aspirin, heparin, NSAIDs or anticoagulants because these medicationsmay increase your risk of worsening your head injury. Your care was managed by the Trauma and Acute Care Surgery Team at [facility]. If you have any questions or concerns, please feel free to contact us. Provider Contact Information: General Surgery Clinic: General Surgery Nurses line: [phone] [facility] (after business hours): documented in this encounter [...] daily. 12/16/2014 documented as of this encounter Progress Notes * Sherri Spear RN - 11/19/2014 11:45 AM EDT Patient discharge to rehab. IV removed. My assessment remains unchanged from my previous assessment. Patient denies chest pain, shortness of breath, nausea, dizziness, numbness, and tingling. RN Discussed pain management with patient, pain tolerable. Patient medicated prior to discharge. VSS. Patient has all belongings. Patient received After Visit Summary. These were reviewed. All questions answered. Patient was encouraged to call with questions or concerns. Discharge packet and prescriptions given to ambulance service. Patient discharged to rehab facility via wheelchair van. Report called to rehab facility. SHERRI SPEAR, RN * Radha Hensley RN - 11/19/2014 10:53 AM EDT Patient Name: Derrick Hobson : 1955 Patient has been offered a swing bed at [facility] for today. Please call hospitalist at [phone]. Please call Nursing Report to , ask for registered clinical dietitian. Info to accompany patient: Copies of Medication Administration Records and IV sheets for past two weeks. [place] medicaid services delivery driver will slat pickler pt at [facility] at 11:30. Patient will be discharged to: [facility] [address] [place] [address] Plan: Clinical Veterinarian will be available to the patient and CRC for further assistance. Radha Hensley RN Pager [phone] * Meredith Alonso APRN - 11/19/2014 6:05 AM EDT Trauma Daily Progress Note INSIDE SALES AGENT Team Pager [phone] ID/Mechanism of injury:59 y.o. Male admitted on [...] clinic in 4 weeks Cervical spine tenderness Naknek J collar at all times - Serial exams Spine center consult in 4 weeks Mildly displaced right sixth anterolateral rib fracture with small associated effusion Resp Therapyconsult - IS q1 hour with assistance Trauma [...] weight bearing status and home accomodations, will cont to need 24/7 supervision Current Medications: ??? miconazole Topical (Top) [...] Intake/Output Summary (Last 24 hours) at 11/19/14 9115 Last data filed at 11/18/14 1813 Gross per 24 hour Intake 1040 ml Output 0 ml Net 1040 ml Physical Exam: GENERAL: Interactive, appropriate HEENT: Normocephalic, atraumatic; Naknek J collar in place LUNG: CTAB CARDIAC: [...] Hobson is a 59yo male admitted to [facility] on 11/06 after a fall down stairs [...] weeks SPINE: - TLS cleared - Cont kotlik J collar today given tenderness on exam- [...] form (home dose is 360mg SR daily); ContLisinopril 10mg daily- this is a new medication [...] to fall down stairs on 11/06, now with L wrist and small finger distal phalanx fracture. L distal radius and ulna fx appear chronic in setting of known hx of distal radius fx. L small finger distal phalanx fracture appears most likely tohave occurred at time of injury on 11/06. NV intact without significant rotational defect. Placed in splint. Although wrist fracture appears to be old and pt has not gross deficit in strengtht or ROMon exam, pt reporting some pain on ulnar aspect of wrist that is possibly related to tendon (insetting of dorsal angulation defect of prior fracture). Placed in volar resting splint. Maintain NWB RUEin splint. Will plan to have patient f/u in 1 month with xrays in ortho upper extremity clinic. Surgical tx options to correct L small finger and L wrist deformities were discussed with patient and patient was advised that if he would like to proceed with surgery to correct these deformities he maycontact the clinic or the orthopaedic service at any time, or discuss this at his follow-up appointm ent. - Activity- NWB RUE - Follow-up- 2 weeks with x-rays in cast/splint prior to appt - Discuss with Dr. Mcdonald I examined Derrick Hobson. He has a malunited left wrist fracture with new onset of pain caused by his recent fall. He reports that he injured the left small finger DIP joint last year and doesn't believe that this is necessarily an acute injury. He has been placed into a mallet splint and we will do followup xrays in about 4 weeks. We also discussed the option of distal radius osteotomy to address his malunion in the future. Neurosurgery: Assessment/Plan:: 59 y.o. male with hyperdensity in right frontal lobe on CT after fall. Neurologically stable. 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 MEREDITH ALONSO APRN 11/19/2014 * Usman Nuñez RN - 11/18/2014 5:37 PM EDT Office of Care Management/Discharge Planning Note Virtualization Engineer Usman Nuñez RN, [facility] (pager [phone]) Patient: Derrick Hobson : 1955 (59 y.o.) Home: [facility] [address]* LOS: 12 days Care reviewed with Alyse Chauhan OT. Reviewed record and interviewed patient. Reviewed CM role andservices accepted. ?? Anticipated barriers to discharge: 25/09 supervision is recommended. Referrals are in to [facility] ([place], [place]), [facility] ([place], [place]), and [facility] ([place], [place]). May be ready for rehab as early as 11/19. Requesting Clinical Veterinarian to checkfor bed availability on 11/19. ?? Identified patient/family [...] Leb Surg [facility] 12/11/2014 1:00 PM [facility] [address] [facility] 12/11/2014 2:00 PM Meena Sanchez APRN LebNeuroS 3C [facility] 12/11/2014 4:20 PM Jacquelyn Maynard APRN [facility] Spine [facility] Plan: Care Management will continue to monitor progress, follow for continuity of care, and assist with discharge planning. Patient Active Problem List Diagnosis Code ??? Abnormal brain CT 793.0 * Magy Parker, EDGE BASTER - 11/18/2014 4:13 PM EDT Physical Therapy Note Treatment # 6 Patient profile: Derrick Hobson is a 59 y.o. right handed male presented to [facility] on 11/06/2014 by Dorian Singleton MD 2 days after he feel down 1/2 flight of stairs, on 11/06. Per general surgery,patient was drinking alcohol as per his usual routine and feel down half a flight of stairs and wasknocked unconscious. When he awoke after an unknown [...] alone in a single story home in [place], [place]. Pt states that bathroom includes a tub shower with grab bars. Pt has friends who provide rides as needed for shopping /appointments. Pt reports that he sleeps either in reclining chair or in flat bed typically. 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 Objective: Pt seen for PT today. Pain: [...] is now limited by a left wrist cast/spint and finger splint. This especially is concerning when the hand rail going up to this Pt apartmentis on the left side.The pt would benefit from skilled therapy services to maximize functional independence while in the hospital and to address limitations as noted above. Goals: To be achieved by 11/13/14: 1. Pt. to demonstrate knowledge of safety limitations and precautions and will appropriately request assistance for functional activities and to mobilize. 2. [...] independent, using one railing with second person toprovide assist for walker management. 6. Family or caregiver to demonstrate understanding of therapeutic interventions to support the care of the patient. GOALS UPDATE: The following goals remain appropriate. To be achieved by 11/27/14: 1. Pt. to demonstrate knowledge of safety limitations and precautions and will appropriately request assistance for functional activities and to mobilize. 2. [...] independent, using one railing with second person toprovide assist for walker management. 6. Family or caregiver to demonstrate understanding of therapeutic interventions to support the care of the patient. Plan: Pt to be seen 3-5 times per week for therapy including Bed mobility, Transfers, Assistive device/technique, Stairs, Exercise, Safety , Precautions/protocol, Gait , Balance and Discharge planning. Patient agrees with plan as stated above. Discharge Recommendations: Patient requires ongoing 24/ supervision. Patient would benefit from skilled therapy interventionsto promote functional independence and safety while improving activity tolerance. No other consults recommended at this time Equipment needs: Rolling walker. Total time spent with patient: 15 minutes for therapeutic functional Total timed interventions:15 minutes MAGY PARKER PTA, 11/18/2014 Pager: [phone] Physical Therapy Inpatient Rehabilitation Department * Alyse Chauhan OTA - 11/18/2014 2:00 PM EDT Occupational Therapy Treatment Note Visit #: 07/12 Patient: Derrick Hobson is a 59 y.o. male patient of Dorian Singleton MD, admitted on 11/06/2014 2 days after he feel down 1/2 flight of stairs, on 11/06. Per general surgery, patient was drinkingalcohol as per his usual routine and feel down half a flight of stairs and was knocked unconscious.When he awoke after an unknown length of time he was disoriented to place and situation. Head CT rev ealed a hyperdensity in (R) frontal lobe concerning for IPH vs DVA vs mass Code Status: full code Activity Orders: as tolerated Precautions: High risk for skin breakdown; At risk to fall; Spinal Precautions: No bending, twisting, or lifting >5-10 #s, Use log roll for bed mobility, Naknek J at all times; Maintain SBP <160; [...] pt interested in information for tobacco cessation butnot alcohol. 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 Pt educated on strategies to optimize successful abstinence from both alcohol and tobacco; pt receptive. D/C Planning: ?? Discussed d/c plan. Pt anticipates d/c home with minimal support. ?? Discussed home setup and educated pt on home modification strategies that can promote safety andindependence; pt very receptive. ?? Pt agreeable to VNA services Pain: c/o pain in neck x 2 days and having migraine headaches which he has at baseline and are relieved by BP medication; RN notified. Education: Pt/family education ongoing re: Role of OT, participation in ADL's, functional mobility,developing/maintaining self-care management, positioning, safety awareness, cognition, energy conservation, precautions, and discharge planning. Pt will benefit from ongoing education. Staff Communication: Patient status and treatment recommendations discussed with nursing/other staff. Spoke with immigration case manager re: pt's concerns about d/c. Assessment: Pt [...] with limited support and LUE in splint; [facility] notified. Pt would benefit from ongoing OT services to maximizefunctional mobility and increase independence with ADL's. Discharge [...] interventions: 75 minutes; TE-F x 5 Pager: [phone] ASA SUMMERS/Carmen Occupational Therapy Rehabilitation Department * Ramandeep Wilson APRN - 11/18/2014 6:18 AM EDT Trauma Daily Progress Note INSIDE SALES AGENT Team Pager [phone] ID/Mechanism of injury:59 y.o. Male admitted on [...] clinic in 4 weeks Cervical spine tenderness Naknek J collar at all times - Serial exams Spine center consult in 4 weeks Mildly displaced right sixth anterolateral rib fracture with small associated effusion Resp Therapyconsult - IS q1 hour with assistance Trauma [...] Exam: GENERAL: Interactive, appropriate HEENT: Normocephalic, atraumatic; Naknek J collar in place LUNG: CTAB CARDIAC: [...] Hobson is a 59yo male admitted to [facility] on 11/06 after a fall down stairs while intoxicated on 11/04, sustaining injuries as listed below. His stay has been complicated by alcohol withdrawal, requiring scheduled and PRN ativan, as well as the addition of lisinopril for BP control. His behavior/cognition has improved, we are slowly weaning his ativan. He continues to have gait impairmen t. Injury Linear area of hyperdensity in the [...] weeks SPINE: - TLS cleared - Cont kotlik J collar today given tenderness on exam- [...] form (home dose is 360mg SR daily); ContLisinopril 10mg daily- this is a new medication [...] to fall down stairs on 11/06, now with L wrist and small finger distal phalanx fracture. L distal radius and ulna fx appear chronic in setting of known hx of distal radius fx. L small finger distal phalanx fracture appears most likely tohave occurred at time of injury on 11/06. NV intact without significant rotational defect. Placed in splint. Although wrist fracture appears to be old and pt has not gross deficit in strengtht or ROMon exam, pt reporting some pain on ulnar aspect of wrist that is possibly related to tendon (insetting of dorsal angulation defect of prior fracture). Placed in volar resting splint. Maintain NWB RUEin splint. Will plan to have patient f/u in 1 month with xrays in ortho upper extremity clinic. Surgical tx options to correct L small finger and L wrist deformities were discussed with patient and patient was advised that if he would like to proceed with surgery to correct these deformities he maycontact the clinic or the orthopaedic service at any time, or discuss this at his follow-up appointm ent. - Activity- NWB RUE - Follow-up- 2 weeks with x-rays in cast/splint prior to appt - Discuss with Dr. Mcdonald I examined Derrick Hobson. He has a malunited left wrist fracture with new onset of pain caused by his recent fall. He reports that he injured the left small finger DIP joint last year and doesn't believe that this is necessarily an acute injury. He has been placed into a mallet splint and we will do followup xrays in about 4 weeks. We also discussed the option of distal radius osteotomy to address his malunion in the future. Neurosurgery: Assessment/Plan:: 59 y.o. male with hyperdensity in right frontal lobe on CT after fall. Neurologically stable. 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 RAMANDEEP WILSON APRN 11/18/2014 * Alyse Chauhan OTA - 11/17/2014 10:43 AM EDT Occupational Therapy Treatment Note Visit #: 06/12 Patient: Derrick Hobson is a 59 y.o. male patient of Dorian Singleton MD, admitted on 11/06/2014 2 days after he feel down 1/2 flight of stairs, on 11/06. Per general surgery, patient was drinkingalcohol as per his usual routine and feel down half a flight of stairs and was knocked unconscious.When he awoke after an unknown length of time he was disoriented to place and situation. Head CT rev ealed a hyperdensity in (R) frontal lobe concerning for IPH vs DVA vs mass Code Status: full code Activity Orders: as tolerated Precautions: High risk for skin breakdown; At risk to fall; Spinal Precautions: No bending, twisting, or lifting >5-10 #s, Use log roll for bed mobility, Naknek J at all times; Maintain SBP <160; [...] to his room and using cane in oppositehand vs allowing therapist to assist. Pt ended up dropping cane on kitchen floor and impulsively bent over to retrieve it despite instructions not to [...] from ongoing reinforcement. ?? Pt provided additional shoes hand sewer to keep one in his kitchen/living room at home and one in his bedroom for LB dressing. ?? Pt reports difficulty with toileting hygiene due though declined AE. D/C Planning: ?? Discussed d/c plan. Pt anticipates d/c home with minimal support. ?? Discussed home setup and educated pt on home modification strategies that can promote safety andindependence; pt very receptive. ?? Pt agreeable to VNA services Pain: c/o pain in lumbar spine Education: Pt/family education ongoing re: Role of OT, participation in ADL's, functional mobility,developing/maintaining self-care routine, positioning, safety, cognition, delirium prevention, energy conservation, and discharge planning. Pt will benefit from ongoing education. Staff Communication: Patient status and treatment recommendations discussed with nursing/other staff. Assessment: Pt continues to make progress towards independent self care and functional mobility though he continues to need cues for safety awareness and compliance with spinal precautions. He was very receptive to recommendations and instruction on AE, home [...] interventions: 55 minutes; TE-F x 4 Pager: [phone] ASA SUMMERS/Carmen Occupational Therapy Rehabilitation Department * , Meredith Galvan APRN - 11/17/2014 5:49 AM EDT Trauma Daily Progress Note INSIDE SALES AGENT Team Pager [phone] ID/Mechanism of injury:59 y.o. Male admitted on 11/06/14 s/p fall 2 down stairs on 11/08 Injury Intervention Follow-up Linear area of hyper density in the posterior lateral right frontal lobe, ? Irregular shaped [facility] Neurosurgery consulted - MRI images limited due to patient movement but did not show obvious vascular anomaly requiring surgery - Serial neuro checks - Hold all anticoagulation - SBP <160 NS clinic in 4 weeks Cervical spine tenderness Naknek J collar at all times - Serial exams Spine center consult in 4 weeks Mildly displaced right sixth anterolateral rib fracture with small associated effusion Resp Therapyconsult - IS q1 hour with assistance Trauma [...] Exam: GENERAL: Interactive, appropriate HEENT: Normocephalic, atraumatic; Naknek J collar in place- cervical spine tenderness [...] Hobson is a 59yo male admitted to [facility] on 11/06 after a fall down stairs while intoxicated on 11/04, sustaining injuries as listed below. His stay has been complicated by alcohol withdrawal, requiring scheduled and PRN ativan, as well as the addition of lisinopril for BP control. His behavior/cognition has improved, he is requiring less ativan. New L wrist/hand fractures seen on XR af ter a possible fall in the bathroom vs acute [...] weeks SPINE: - TLS cleared - Cont kotlik J collar today given tenderness on exam- [...] form (home dose is 360mg SR daily); ContLisinopril 10mg daily- this is a new medication [...] lobe on CT after fall. Neurologically stable. 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 MEREDITH ALONSO, INSIDE SALES AGENT 11/17/2014 * Magy Parker EDGE BASTER - 11/16/2014 4:25 PM EDT Physical Therapy Note 11/16/14 Pt was seen for PT this afternoon. Detail note to follow. Magy Parker PTA Pager # [phone] * Magy Parker EDGE BASTER - 11/16/2014 3:30 PM EDT Physical Therapy Note Treatment # 5 Patient profile: Derrick Hobson is a 59 y.o. right handed male presented to [facility] on 11/06/2014 by Dorian Singleton MD 2 days after he feel down 1/2 flight of stairs, on 11/06. Per general surgery,patient was drinking alcohol as per his usual routine and feel down half a flight of stairs and wasknocked unconscious. When he awoke after an unknown [...] alone in a single story home in [place], [place]. Pt states that bathroom includes a tub shower with grab bars. Pt has friends who provide rides as needed for shopping /appointments. Pt reports that he sleeps either in reclining chair or in flat bed typically. 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 Objective: Pt seen for PT today. Consulted [...] to maximize functional independence while in the hospitaland to address limitations as noted above. Goals: To be achieved by 11/13/14: 1. Pt. to demonstrate knowledge of safety limitations and precautions and will appropriately request assistance for functional activities and to mobilize. 2. [...] independent, using one railing with second person toprovide assist for walker management. 6. Family or caregiver to demonstrate understanding of therapeutic interventions to support the care of the patient. GOALS UPDATE: The following goals remain appropriate. To be achieved by 11/27/14: 1. Pt. to demonstrate knowledge of safety limitations and precautions and will appropriately request assistance for functional activities and to mobilize. 2. [...] independent, using one railing with second person toprovide assist for walker management. 6. Family or caregiver to demonstrate understanding of therapeutic interventions to support the care of the patient. Plan: Continue to ambulate with [...] supervision. Patient would benefit from skilled therapy interventionsto promote functional independence and safety while improving activity tolerance. No other consults recommended at this time Equipment needs: Rolling walker. Total time spent with patient: 20 minutes for therapeutic functional Total timed interventions:15 minutes MAGY PARKER PTA, 11/17/2014 Pager: [phone] Physical Therapy Inpatient Rehabilitation Department * Khushi Mcrae DT - 11/16/2014 2:11 PM [...] nutrition education. He reported a fair appetite without difficulty chewing or swallowing. He did not have questions at this time. Contact Food and Nutrition if questions arise. Nutrition Plan: Continue current diet. Encourage good po intake. Monitor weight. Support and encouragement provided. Nutrition services to follow weekly thru hospital course unless consulted in the interim. IBAN Gaytan * Archie Thakur - 11/16/2014 2:02 PM EDT Plumbing And Heating Mechanic Encounter Note Patient Name: Derrick Hobson : [id number] MR#: [id number] Admit Date: 11/06/2014 8:31 PM Hospital Day 10 days Narrative: Visited to introduce and assess acceptance of Plumbing And Heating Mechanic services. Pt was awake, alert, oriented and [...] Outcome: Provided spiritual, emotional support and encouraging presence.Plumbing And Heating Mechanic services accepted.Conversation to build trusting relationship.Provided prayer.Provided pastoral presence.Provided spiritual guidance. Follow-up: yes Time in Direct Care:15 Mins Archie Thakur 11/16/2014 * , Meredith GalvanCHELLY - 11/16/2014 6:31 AM EDT Trauma Daily Progress Note INSIDE SALES AGENT Team Pager [phone] ID/Mechanism of injury:59 y.o. Male admitted on [...] clinic in 4 weeks Cervical spine tenderness Naknek J collar at all times - Serial exams Spine center consult in 4 weeks Mildly displaced right sixth anterolateral rib fracture with small associated effusion Resp Therapyconsult - IS q1 hour with assistance Trauma [...] Exam: GENERAL: Interactive, appropriate HEENT: Normocephalic, atraumatic; Naknek J collar in place- cervical spine tenderness [...] Hobson is a 59yo male admitted to [facility] on 11/06 after a fall down stairs [...] weeks SPINE: - TLS cleared - Cont kotlik J collar today given tenderness on exam- [...] form (home dose is 360mg SR daily); ContLisinopril 10mg daily- this is a new medication [...] lobe on CT after fall. Neurologically stable. 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 MEREDITH ALONSO APRN 11/16/2014 * aRmandeep Wilson APRN - 11/15/2014 5:46 AM EDT Trauma Daily Progress Note INSIDE SALES AGENT Team Pager [phone] ID/Mechanism of injury:59 y.o. Male admitted on [...] clinic in 4 weeks Cervical spine tenderness Naknek J collar at all times - Serial exams Spine center consult in 4 weeks Mildly displaced right sixth anterolateral rib fracture with small associated effusion Resp Therapyconsult - IS q1 hour with assistance Trauma [...] Intake/Output Summary (Last 24 hours) at 11/15/14 0546 Last data filed at 11/15/14 0330 Gross per 24 hour Intake 2320 ml Output 0 ml Net 2320 ml Physical Exam: GENERAL: Interactive, appropriate HEENT: Normocephalic, atraumatic; Naknek J collar in place LUNG: CTAB CARDIAC: [...] Hobson is a 59yo male admitted to [facility] on 11/06 after a fall down stairs [...] weeks SPINE: - TLS cleared - Cont kotlik J collar today given tenderness on exam- [...] form (home dose is 360mg SR daily); ContLisinopril 10mg daily- this is a new medication [...] lobe on CT after fall. Neurologically stable. 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 RAMANDEEP WILSON APRN 11/15/2014 * Ramandeep Wilson APRN - 11/14/2014 5:49 AM EDT Trauma Daily Progress Note INSIDE SALES AGENT Team Pager [phone] ID/Mechanism of injury:59 y.o. Male admitted on [...] clinic in 4 weeks Cervical spine tenderness Naknek J collar at all times - Serial exams Spine center consult in 4 weeks Mildly displaced right sixth anterolateral rib fracture with small associated effusion Resp Therapyconsult - IS q1 hour with assistance Trauma [...] Intake/Output Summary (Last 24 hours) at 11/14/14 0587 Last data filed at 11/14/14 0115 Gross per 24 hour Intake 2390 ml Output 0 ml Net 2390 ml Physical Exam: GENERAL: Interactive, appropriate HEENT: Normocephalic, atraumatic; Naknek J collar in place- cervical spine tenderness [...] Hobson is a 59yo male admitted to [facility] on 11/06 after a fall down stairs [...] weeks SPINE: - TLS cleared - Cont kotlik J collar today given tenderness on exam- [...] form (home dose is 360mg SR daily); ContLisinopril 10mg daily- this is a new medication [...] lobe on CT after fall. Neurologically stable. 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 RAMANDEEP WILSON APRN 11/14/2014 * Adilene Ashford RN - 11/13/2014 11:22 PM EDT Pt observed for the second time with his Naknek J collar off. Pt lying on his side, eating. Informedpt (again) of importance of wearing collar at all times and pt stated he can not eat with it on andwill replace it when he is done eating. * Magy Parker, EDGE BASTER - 11/13/2014 5:20 PM EDT Physical Therapy Note Treatment # 4 Patient profile: Derrick Hobson is a 59 y.o. right handed male presented to [facility] on 11/06/2014 by Dorian Singleton MD 2 days after he feel down 1/2 flight of stairs, on 11/06. Per general surgery,patient was drinking alcohol as per his usual routine and feel down half a flight of stairs and wasknocked unconscious. When he awoke after an unknown [...] alone in a single story home in [place], [place]. Pt states that bathroom includes a tub shower with grab bars. Pt has friends who provide rides as needed for shopping /appointments. Pt reports that he sleeps either in reclining chair or in flat bed typically. Stairs: 14 stairs with one rail to enter home Baseline Mobility: independent without use of assistive device; Reports h/o multiple falls; Does not drive Equipment at home: none Precautions/Special Considerations: Full code; High risk for skin breakdown; At risk to fall; Spinal Precautions: No bending, twisting, or lifting >5-10 #s, Use log roll for bed mobility, Naknek J at all times; Maintain SBP <160; [...] and 1 cane with difficulty to coordinate and using the cane properly. Contact guard gait belt [...] motor control during stair training .The pt wouldbenefit from skilled therapy services to maximize functional independence while in the hospital andto address limitations as noted above. Goals: To be achieved by 11/13/14: 1. Pt. to demonstrate knowledge of safety limitations and precautions and will appropriately request assistance for functional activities and to mobilize. 2. [...] independent, using one railing with second person toprovide assist for walker management. 6. Family or caregiver to demonstrate understanding of therapeutic interventions to support the care of the patient. Plan: Continue to ambulate with [...] supervision. Patient would benefit from skilled therapy interventionsto promote functional independence and safety while improving activity tolerance. No other consults recommended at this time Equipment needs: Rolling walker. Total time spent with patient: 25 minutes for therapeutic functional Total timed interventions:25 minutes MAGY PARKER PTA, 11/13/2014 Pager: [phone] Physical Therapy Inpatient Rehabilitation Department Associated attestation - Patsy Clements PT - 11/16/2014 10:06 AM EDT GOALS UPDATE: The following goals remain appropriate. To be achieved by 11/27/14: 1. Pt. to demonstrate knowledge of safety limitations and precautions and will appropriately request assistance for functional activities and to mobilize. 2. [...] independent, using one railing with second person toprovide assist for walker management. 6. Family or caregiver to demonstrate understanding of therapeutic interventions to support the care of the patient. Patsy Alcaraz, PT Pager #[phone] Physical Therapy Inpatient Rehabilitation * Meredith APRN - 11/13/2014 5:57 AM EDT Trauma Daily Progress Note INSIDE SALES AGENT Team Pager [phone] ID/Mechanism of injury:59 y.o. Male admitted on 9/4/15 s/p fall 2 down stairs on 11/08 [...] clinic in 4 weeks Cervical spine tenderness Naknek J collar at all times - Serial exams Spine center consult in 4 weeks Mildly displaced right sixth anterolateral rib fracture with small associated effusion Resp Therapyconsult - IS q1 hour with assistance Trauma [...] I/O: Intake/Output Summary (Last 24 hours) at 11/13/14 1226 Last data filed at 11/13/14 1223 Gross per 24 hour Intake 2630 ml Output 0 ml Net 2630 ml Physical Exam: GENERAL: Interactive, appropriate HEENT: Normocephalic, atraumatic; Naknek J collar in place- cervical spine tenderness [...] Hobson is a 59yo male admitted to [facility] on 11/06 after a fall down stairs while intoxicated on 11/04, sustaining injuries as listed below. His stay has been complicated by alcohol withdrawal, requiring scheduled and PRN ativan, as well as the addition of lisinopril for BP control. His behavior/cognition has improved in the last 48hrs, likely now more of a delirium picture rather than w ithdrawal. Continuing to work on cognition and gait [...] TLS cleared in trauma bay - Cont kotlik J collar today given tenderness on exam [...] form (home dose is 360mg SR daily); ContLisinopril 10mg daily- this is a new medication [...] lobe on CT after fall. Neurologically stable. 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 MEREDITH ALONSO APRN 11/13/2014 * Magy Parker, EDGE BASTER - 11/12/2014 4:30 PM EDT Physical Therapy Note Treatment # 3 Patient profile: Derrick Hobson is a 59 y.o. right handed male presented to [facility] on 11/06/[address] Pena, Dorian Major MD 2 days after he feel down 1/2 flight of stairs, on 11/06. Per general surgery,patient was drinking alcohol as per his usual routine and feel down half a flight of stairs and wasknocked unconscious. When he awoke after an unknown [...] alone in a single story home in [place], [place]. Pt states that bathroom includes a tub shower with grab bars. Pt has friends who provide rides as needed for shopping /appointments. Pt reports that he sleeps either in reclining chair or in flat bed typically. Stairs: 14 stairs with one rail to enter home Baseline Mobility: independent without use of assistive device; Reports h/o multiple falls; Does not drive Equipment at home: none Precautions/Special Considerations: Full code; High risk for skin breakdown; At risk to fall; Spinal Precautions: No bending, twisting, or lifting >5-10 #s, Use log roll for bed mobility, Naknek J at all times; Maintain SBP <160; [...] safety limitations and precautions and will appropriately request assistance for functional activities and to mobilize. 2. [...] independent, using one railing with second person toprovide assist for walker management. 6. Family or caregiver to demonstrate understanding of therapeutic interventions to support the care of the patient. Plan: PT services to resume Friday 11/10. Pt to be seen 3-5 times per week for therapy including Bed mobility, Transfers, Assistive device/technique, Stairs, Exercise, Safety , Precautions/protocol, Gait , Balance and Discharge planning. Patient agrees with plan as stated above. Discharge Recommendations: Patient requires ongoing 24/ supervision. Patient would benefit from skilled therapy interventionsto promote functional independence and safety while improving activity tolerance. No other consults recommended at this time Equipment needs: Rolling walker. Total time spent with patient: 15 minutes for therapeutic functional Total timed interventions:10 minutes MAGY PARKER PTA, 11/12/2014 Pager: [phone] Physical Therapy Inpatient Rehabilitation Department * Luisa Colón CALKER - 11/12/2014 2:38 PM EDT Occupational Therapy Treatment Note Visit #: 05/12 Patient: Derrick Hobson is a 59 y.o. male patient of Dorian Singleton MD, admitted on 11/06/2014 2 days after he feel down 1/2 flight of stairs, on 11/06. Per general surgery, patient was drinkingalcohol as per his usual routine and feel down half a flight of stairs and was knocked unconscious.When he awoke after an unknown length of time he was disoriented to place and situation. Head CT rev ealed a hyperdensity in (R) frontal lobe concerning for IPH vs DVA vs mass Code Status: full code Activity Orders: as tolerated Precautions: High risk for skin breakdown; At risk to fall; Spinal Precautions: No bending, twisting, or lifting >5-10 #s, Use log roll for bed mobility, Naknek J at all times; Maintain SBP <160; [...] and cgA 2'2 sway and occasional unsteadiness, requiredmaximal assistance to retrieve soda off of the middle shelf of fridge, educated re: LH shoes hand sewer though unable to trial as it was not close by, pt with one episode of dizziness after making drink, required standing rest break leaning against counter with eyes closed, cgA, pt reported decreased dizziness after approx 60 seconds. ?? Pt is an avid reader at baseline, pt selected a mystery book from [employer] services, pt actively reading chosen book at end of tx session Strength / Range of motion ?? R UE manager document control strength < L UE manager document control strength, functional Vitals and Endurance ?? Last recorded vitals below Last value Heart Rate Heart Rate: 54 Blood Pressure BP: 118/82 mmHg SpO2 SpO2: 94 % Pain: no c/o pain Education: Pt/family education ongoing re: Role of OT, participation in ADL's, functional mobility,developing/maintaining self-care routine, positioning, safety, cognition, delirium prevention, energy conservation, and discharge planning. Pt will benefit from [...] sleep schedule. Goals: To be achieved by 913/15. 1. [...] 41 minutes Total timed interventions: 41 minutes BRY SOW/Carmen (Pager # [phone]) Occupational Therapy Rehabilitation Department * Brynn Lamas RN - 11/12/2014 9:43 AM EDT Office of Care Management (OCM) / Virtualization Engineer (CM)/ Initial Assessment Reviewed record and interviewed patient. Introduced/reviewed CM role and services accepted. REASON for HOSPITALIZATION: On 11/06/14, Derrick Hobson is a 59 y.o. male presents to [facility] 2 days after he feel down 1/2 flight of stairs. Patient was drinking alcohol as per his usual routine and feel down half a flight of stair and was knocked unconscious. When he awoke an unknown length of time he was disoriented to place and situation. He was helped home by friends. 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 He was complaining of band-like headache and R chest pain. He presented to [facility] ED where a head CT showed a small IPH for which hewas transferred here. The following injuries identified: 1. Small IPH 2. concussion 3. Right 6th rib fracture with small effusion PMH. See full H&P for further details PREVIOUS FUNCTIONAL STATUS: independent CURRENT FUNCTIONAL STATUS: reclined in bed with kotlik J collar in place, note RA sat 91%. Initially, pt appears to be sleeping and does not respond to answers at this time. Returned short time later and pt is awake and pleasant. He is able to explain he does not recall fall. He is appropriate and reports comfortable at this time. SOCIAL / FAMILY SUPPORTS: Pt explains he lives alone, has an older sister in [facility]. see her coupletimes week but she could not help me... Has a brother in [facility] ADVANCE DIRECTIVES: not on file HEALTH /PRESCRIPTION [...] geographical area requested has been provided through [employer] search. ?? Requested patient/family provide at least three choices for referral. ?? Patient/family request referrals: pt is willing to consider rehab as recommended and prefers to be close to [facility] where family is located. Referrals initiated to [facility] and possible third choice is the [facility] in [place] Note routed to Clinical Veterinarian who will communicate referrals to facilities via [employer] program. PRODUCE DEPARTMENT MANAGER REFERRAL: Anticipate pt may need PRODUCE DEPARTMENT MANAGER support. Pt apparently on parole. Pt may require short term skilled stay to improve strength and conditioning in addition to current need for assist with ADL's. PRIMARY CARE PHYSICIAN: Sherri Rivas MD POTENTIAL DISCHARGE NEEDS: possible need for skilled stay at discharge ANTICIPATED BARRIERS TO DISCHARGE: coverage for anticipated skilled stay and an appropriate settingto meet therapy needs. TRANSPORTATION @ D/C: to [...] be discussed. Will also initiate referral for PRODUCE DEPARTMENT MANAGER. * , Meredith Galvan APRN - 11/12/2014 6:07 AM EDT Trauma Daily Progress Note INSIDE SALES AGENT Team Pager [phone] ID/Mechanism of injury:59 y.o. Male admitted on [...] clinic in 4 weeks Cervical spine tenderness Naknek J collar at all times - Serial exams Spine center consult in 4 weeks Mildly displaced right sixth anterolateral rib fracture with small associated effusion Resp Therapyconsult - IS q1 hour with assistance Trauma [...] Intake/Output Summary (Last 24 hours) at 11/12/14 0759 Last data filed at 11/12/14 0222 Gross per 24 hour Intake 2180 ml Output 600 ml Net 1580 ml Physical Exam: GENERAL: Interactive, appropriate HEENT: Normocephalic, atraumatic; Naknek J collar in place- cervical spine tenderness [...] Hobson is a 59yo male admitted to [facility] on 11/06 after a fall down stairs while intoxicated on 11/04, sustaining injuries as listed below. His stay has been complicated by alcohol withdrawal, requiring scheduled and PRN ativan, as well as the addition of lisinopril for BP control. His behavior/cognition has improved in the last 24hrs, likely now more of a delirium picture rather than w ithdrawal. Injury Linear area of hyperdensity in the [...] today, but continue with scheduled ativan 1mg q6 hours, MVI daily - Hx Anxiety/Depression: Cont home Celexa, Wellbutrin - Hx Insomnia: Increase home Trazodone to 150mg qhs today (home dose is 100-250 daily) to promote sleep/wake cycle and Hold home Ambien for now - IPH: Keep SBP <160, Serial neuro checks; f/u with NS in 4 weeks SPINE: - TLS cleared in trauma bay - Cont kotlik J collar today given tenderness on exam [...] anterolateral leads- Cardiac enzymes x3 flat, will repeatEKG this AM to evaluate - Follow HR, [...] lobe on CT after fall. Neurologically stable. 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 MEREDITH ALONSO APRN 11/12/2014 * Luisa Colón, BRY - 11/11/2014 11:58 AM EDT Occupational Therapy Treatment Note Visit #: 04/14 Patient: Derrick Hobson is a 59 y.o. male patient of Dorian Singleton MD, admitted on 11/06/2014 2 days after he feel down 1/2 flight of stairs, on 11/06. Per general surgery, patient was drinkingalcohol as per his usual routine and feel down half a flight of stairs and was knocked unconscious.When he awoke after an unknown length of time he was disoriented to place and situation. Head CT rev ealed a hyperdensity in (R) frontal lobe concerning for IPH vs DVA vs mass Code Status: full code Activity Orders: as tolerated Precautions: High risk for skin breakdown; At risk to fall; Spinal Precautions: No bending, twisting, or lifting >5-10 #s, Use log roll for bed mobility, Naknek J at all times; Maintain SBP <160; [...] techniques while maintaining spinal precautions, issued LH sponge, sock aide, shoes hand sewer, and dressing stick. ?? Pt donned socks [...] Role of OT, participation in ADL's, functional mobility,developing/maintaining self-care routine, positioning, safety, cognition, delirium prevention, energy conservation, and discharge planning. Pt will benefit from [...] interventions: 30 minutes BRY SOW/Carmen (Pager # [phone]) Occupational Therapy Rehabilitation Department * Magy Parker PTA - 11/11/2014 9:30 AM EDT Physical Therapy Note Treatment # 2 Patient profile: Derrick Hobson is a 59 y.o. right handed male presented to [facility] on 11/06/2014 by Dorian Singleton MD 2 days after he feel down 1/2 flight of stairs, on 11/06. Per general surgery,patient was drinking alcohol as per his usual routine and feel down half a flight of stairs and wasknocked unconscious. When he awoke after an unknown [...] alone in a single story home in [place], [place]. Pt states that bathroom includes a tub shower with grab bars. Pt has friends who provide rides as needed for shopping /appointments. Pt reports that he sleeps either in reclining chair or in flat bed typically. Stairs: 14 stairs with one rail to enter home Baseline Mobility: independent without use of assistive device; Reports h/o multiple falls; Does not drive Equipment at home: none Precautions/Special Considerations: Full code; High risk for skin breakdown; At risk to fall; Spinal Precautions: No bending, twisting, or lifting >5-10 #s, Use log roll for bed mobility, Naknek J at all times; Maintain SBP <160; [...] with HOB flat, contact guard assist of LE,s, VC for log rolling technique. Transfers: Sit to Stand: contact guard using FWW. Stand to Sit: contact guard using FWW. Gait: Distance: ~150 feet Device used: rolling walker Level of assist: variable - contact guard to min assist with LOB, verbal cueing to maintain safety and for walker management Gait pattern: forward flexed trunk with reliance on walker for stability, veering left to right, nodemonstrated visual scanning abilities. Balance: Sitting: WFL Standing: Impaired, impulsive contributing to poor dynamic safety at this time Education: patient has been educated on Bed mobility, Transfers, Safety , Gait , Role of therapy, Balance and Discharge planning and needs reinforcement. understanding. Patient status, treatment, and mobility recommendations discussed with nursing. Assessment: Pt tolerated PT activities fairly. Pt demonstrated improved tolerance and fair progressto bed mobility, transfers and gait activities. Pt was not able to ambulate without veering left and right and/or scan for environmental floor objects. Pt remains impulsive with no regards putting him self at risk of falling.The pt would benefit from skilled therapy services to maximize functional independence while in the hospital and to address limitations as noted above. Goals: To be achieved by 11/13/14: 1. Pt. to demonstrate knowledge of safety limitations and precautions and will appropriately request assistance for functional activities and to mobilize. 2. [...] independent, using one railing with second person toprovide assist for walker management. 6. Family or caregiver to demonstrate understanding of therapeutic interventions to support the care of the patient. Plan: PT services to resume Friday 11/10. Pt to be seen 3-5 times per week for therapy including Bed mobility, Transfers, Assistive device/technique, Stairs, Exercise, Safety , Precautions/protocol, Gait , Balance and Discharge planning. Patient agrees with plan as stated above. Discharge Recommendations: Patient requires ongoing 24/7 supervision. Patient would benefit from skilled therapy interventionsto promote functional independence and safety while improving activity tolerance. No other consults recommended at this time Equipment needs: Rolling walker. Time IN / OUT: 9:30 - 9:55 Total time spent with patient: 25 minutes for therapeutic functional Total timed interventions:25 minutes MAGY PARKER PTA, 11/11/2014 Pager: [phone] Physical Therapy Inpatient Rehabilitation Department * Ramandeep Wilson APRN - 11/11/2014 6:22 AM EDT Trauma Daily Progress Note INSIDE SALES AGENT Team Pager [phone] ID/Mechanism of injury:59 y.o. Male admitted on 11/06/14 s/p fall 2 down stairs on 11/08 Injury Intervention Follow-up Linear area of hyper density in the posterior lateral right frontal lobe, ? Irregular shaped [facility] Neurosurgery consulted - MRI images limited due to patient movement but did not show obvious vascular anomaly requiring surgery - Serial neuro checks - Hold all anticoagulation - SBP <160 NS clinic in 4 weeks Cervical spine tenderness Naknek J collar at all times - Serial exams Spine center consult in 4 weeks Mildly displaced right sixth anterolateral rib fracture with small associated effusion Resp Therapyconsult - IS q1 hour with assistance Trauma [...] Intake/Output Summary (Last 24 hours) at 11/11/14 06 Last data filed at 11/11/14 0400 Gross per 24 hour Intake 3590 ml Output 1275 ml Net 2315 ml Physical Exam: GENERAL: interactive, appropriate HEENT: Normocephalic, atraumatic; Naknek J collar in place- cervical spine tenderness [...] Hobson is a 59yo male admitted to [facility] on 11/06 after a fall down stairs [...] home dose is 100- 250 daily) to promotesleep/wake cycle and Hold home Ambien for now - IPH: Keep SBP <160, Serial neuro checks; f/u with NS in 4 weeks SPINE: - TLS cleared in trauma bay - Cont kotlik J collar today given tenderness on exam [...] form (home dose is 360mg SR daily); cont Lisinopril 10mg daily- this is a new medication started this admission; Cont Hydralazine and Labetalol PRN SBP >160 FEN/GI: - Diet: Regular - NBO: Ordered, LBM EDGE BASTER--pt should have BM today, suppository written - [...] lobe on CT after fall. Neurologically stable. 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 RAMANDEEP WILSON APRN 11/11/2014 * Alicia No RCP - 11/11/2014 2:28 AM EDT RT was at bed side pt to deep breath and cough, and also for I.S. Maneuver but pt refused, will continue to follow. * Zohreh Martínez - 11/10/2014 12:56 PM EDT [...] course unless consulted in the interim. IBAN Davis * Patsy Alcaraz, PT - 11/10/2014 8:34 AM EDT Physical Therapy Note Pt not appropriate for participation in skilled PT at this time secondary to pt confused, agitated,and not redirectable this AM scoring 11 on Ativan assessment scale. Will follow up to re-attempt when appropriate. Please page this instructional writer if you have any questions, thank you. Patsy Alcaraz, PT Pager #[phone] Physical Therapy Inpatient Rehabilitation * , Meredith Galvan, INSIDE SALES AGENT - 11/10/2014 6:33 AM EDT Trauma Daily Progress Note INSIDE SALES AGENT Team Pager [phone] ID/Mechanism of injury:59 y.o. Male admitted on 11/06/14 s/p fall 2 days prior down stairs. Injury Intervention Follow-up Linear area of hyperdensity in the posterior lateral right frontal lobe, ? Irregular shaped IPH vs large developmental venous anomaly Neurosurgery consulted - MRI ordered - Serial neuro checks - Hold all anticoagulation - SBP <160 NS clinic in 4 weeks Cervical spine tenderness Naknek J collar at all times - Serial exams Spine center consult in 4 weeks Mildly displaced right sixth anterolateral rib fracture with small associated effusion Resp Therapyconsult - IS q1 hour with assistance Trauma [...] but states he's annoyed HEENT: Normocephalic, atraumatic; Naknek J collar in place- cervical spine tenderness on exam C2-5 LUNG: Equal, breath sounds bilaterally; Scattered wheezes bilaterally. Tenderness to palpation overright chest. No crepitus. CARDIAC: Regular rate and rhythm or without murmur or extra heart sounds ABDOMEN/GI: Soft, non-distended, no abrasions and no contusions, Non tender to palpation over entire abdomen SKIN: No rashes; WWP NEURO: Wakes to [...] Hobson is a 59yo male admitted to [facility] on 11/06 after a fall down stairs [...] hour PRN pain; Cont lidoderm patches to Rchest wall for rib fx - Hx Chronic pain: Cont home gabapentin; Hold home flexeril - ETOH withdrawal: Cont Ativan Assessment scale for now; Increase scheduled oral ativan to 1mg q6 hours in hopes to wean scale off tomorrow; banana bag and 3d thiamine/folate completed, start MVI daily today - Hx Anxiety/Depression: Cont home Celexa and [...] TLS cleared in trauma bay - Cont kotlik J collar today given tenderness on exam [...] form (home dose is 360mg SR daily); Will start Lisinopril 10mg daily today for better control; Cont Hydralazine and Labetalol PRN SBP >160 FEN/GI: - Diet: Regular with assistance - NBO: Ordered, LBM EDGE BASTER--pt should have BM today, suppository written - [...] lobe on CT after fall. Neurologically stable. 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 MEREDITH ALONSO APRN 11/10/2014 * Alicia No RCP - 11/09/2014 10:47 PM EDT Pt was found on restraint and could not perform any maneuvers at this stage, will continue to follow. * Diomedes Cerda RN - 11/09/2014 11:49 AM EDT Patient arrived to floor via bed from W. Patient A&O x 3, lungs course and patient refused duoneb upon admission, heart rate regular. Patient has been voiding and had a BM on November 06.. Patient has a Naknek J collar on. Soft limb restraints on bilaterally to upper and lower extremities. Patient has an IV in left upper arm. Patient states their pain level is 0/10. Patient is on the Ativanassessment scale, only scored a 2 for me. Was able to state where he was, why he is here, and that he was drunk when this happened. Neuro check completed and no overt deficits noted. Patient denies chest pain, shortness of breath, numbness or tingling. Patient oriented to room, call DAVID larson. RN will monitor patient. * Derrick Garsia MD - 11/09/2014 10:03 AM [...] HYDROmorphone, polyethylene glycol, bisacodyl, sodium chloride 0.9 %, lidocaine, nalOXone, LORazepam OR LORazepam OR LORazepam Vitals: Temp: [36.5 ??C (97.7 ??F)-37.2 ??C (99 ??F)] Heart Rate: [59-82] Resp: [16-22] BP: (107-192)/(72-123) SpO2: [89 %-97 %] I/O: Intake/Output Summary (Last 24 hours) at 11/09/14 1003 Last data filed at 11/09/14 0914 Gross per 24 hour Intake 480 ml Output 1300 ml Net -820 ml Labs: Recent Labs 11/07/1435411/06/14 193 WBC 9.3 10.1* HGB 15.1 16.4 PLATELET 192 223 Recent Labs 11/07/1435411/06/141929 NA 140 144 K [...] lobe on CT after fall. Neurologically stable. Please follow-up with Jerson Burciaga PA-C in 4 weeks [...] in 4 weeks with repeat head CT. * Dorian Pena MD - 11/09/2014 9:28 AM EDT Trauma Daily Progress Note INSIDE SALES AGENT Team Pager [phone] ID/Mechanism of injury:59 y.o. Male admitted on 11/06/14 s/p fall 2 days prior down stairs. Injury Intervention Follow-up Linear area of hyperdensity in the posterior lateral right frontal lobe, ? Irregular shaped IPH vs large developmental venous anomaly Neurosurgery consulted - MRI ordered - Serial neuro checks - Hold all anticoagulation - SBP <160 NS clinic in 4 weeks Cervical spine tenderness Naknek J collar at all times - Serial exams Spine center consult in 4 weeks Mildly displaced right sixth anterolateral rib fracture with small associated effusion Resp Therapyconsult - IS q1 hour with assistance Trauma [...] taking off his C-collar, and being disruptive. Security was ultimately called. The patient was placed [...] Awake, alert, more calm HEENT: Normocephalic, atraumatic; Naknek J collar in place- cervical spine tenderness on exam C2-5 LUNG: Equal, breath sounds bilaterally; Scattered wheezes bilaterally. Tenderness to palpation overright chest. No crepitus. CARDIAC: Regular rate and rhythm or without murmur or extra heart sounds ABDOMEN/GI: Soft, non-distended, no abrasions and no contusions, Non tender to palpation over entire abdomen SKIN: No rashes; WWP NEURO: Wakes to voice, more cooperative today; Oriented x3 Labs: Recent Labs 11/07/14 0355 11/06/140 WBC 9.3 10.1* HGB 15.1 16.4 HCT [...] hour PRN pain; Cont lidoderm patches to Rchest wall for rib fx - Hx Chronic [...] TLS cleared in trauma bay - Cont kotlik J collar today given tenderness on exam [...] 360mg SR daily); Labetalol PRN SBP >160 FEN/GI: HCIVF given good PO intake Diet: Regular NBO: Ordered, LBM EDGE BASTER LFTs WNL 11/07 RENAL: - Voiding, Follow [...] lamina and spinous process of C3, 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 EFRAÍN LOPEZ MD 11/09/2014 TRAUMA ATTENDING NOTE: Pt [...] in ISCU today and continue ativan assessment scale along with scheduled dosing. No need for ICU at this time. Otherwise as noted above. * Dena So MD - 11/09/2014 2:58 AM EDT Nursing requested evaluation of Mr Hobson several times throughout the night. Per nursing, patientwas OOB, taking off his C-collar, and being [...] restraints. HR 70s, O2 sat 93; BP 166. Nursing notes patient scoring higher on AAS. Advised giving next available dose 1 hour early. Patient otherwise stable at this time. Will continue to follow. * Nelson Berry RN - 11/08/2014 2:12 PM EDT Report given to ABEL Salazar on . Pt transferred to [facility] in bed. At time of transfer Pt A+Ox4, RNaware AAS due at this time. Pt remains on 3L NC, no SOB, pain 10/10. Bed alarm on, all belongings transferred to [facility]. * Tres Elizondo RCP - 11/08/2014 1:09 PM EDT Called to room for assistance with secretions clearance. Pt was awake and alert, introductions made. Airway patent, breathing 16 with no noted WOB, on RA. Pt stated rib pain 6/10 increase with deep breathing. Pt was able to do 500-600 on the IS with fair effort. Pt was able to use the [employer] welland had a good productive cough, pt did state pain with coughing. Plan for pt to use both Q1 hour, plan discussed with pt and RN. * Sierra Murillo MD - 11/08/2014 8:28 AM [...] HYDROmorphone, polyethylene glycol, bisacodyl, sodium chloride 0.9 %, lidocaine, nalOXone, LORazepam [...] 192 223 Recent Labs 11/07/14 0355 11/06/14 1930 NA [...] of Dr. Murillo. MRI Today. Neurologically stable. * , Meredith Galvan APRN - 11/08/2014 6:34 AM EDT Trauma Daily Progress Note INSIDE SALES AGENT Team Pager [phone] ID/Mechanism of injury:59 y.o. Male admitted on 11/06/14 s/p fall 2 days prior down stairs. Injury Intervention Follow-up Linear area of hyperdensity in the posterior lateral right frontal lobe, ? Irregular shaped IPH vs large developmental venous anomaly Neurosurgery consulted - MRI ordered - Serial neuro checks - Hold all anticoagulation - SBP <160 NS clinic in 4 weeks Cervical spine tenderness Naknek J collar at all times - Serial exams Spine center consult in 4 weeks Mildly displaced right sixth anterolateral rib fracture with small associated effusion Resp Therapyconsult - IS q1 hour with assistance Trauma [...] Awake, alert, more calm HEENT: Normocephalic, atraumatic; Naknek J collar in place- cervical spine tenderness on exam C2-5 LUNG: Equal, breath sounds bilaterally; Scattered wheezes bilaterally. Tenderness to palpation overright chest. No crepitus. CARDIAC: Regular rate and rhythm or without murmur or extra heart sounds ABDOMEN/GI: Soft, non-distended, no abrasions and no contusions, Non tender to palpation over entire abdomen SKIN: No rashes; WWP NEURO: Wakes to voice, more cooperative today; Oriented x3 Labs: Recent Labs 11/07/14 03511/06/140 WBC 9.3 10.1* HGB 15.1 16.4 HCT [...] TLS cleared in trauma bay - Cont kotlik J collar today given tenderness on exam [...] 360mg SR daily); Labetalol PRN SBP >160 FEN/GI: HCIVF given good PO intake Diet: Advance to regular today NBO: Ordered, LBM EDGE BASTER LFTs WNL 11/07 RENAL: - Voiding, Follow [...] lamina and spinous process of C3, 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 MEREDITH ALONSO APRN 11/08/2014 * Juancho Mcgee MD - 11/07/2014 10:20 AM [...] HYDROmorphone, sodium chloride 0.9 %, lidocaine, nalOXone, LORazepamOR LORazepam OR LORazepam Vitals: Temp: [36.2 ??C [...] 192 223 Recent Labs 11/07/14 0355 11/06/14 1930 NA [...] Needs MRI brain with and without contrast. * , Meredith ColeCHELLY - 11/07/2014 6:18 AM EDT TRAUMA & ACUTE SURGICAL CARE SERVICE TERTIARY SURVEY INSIDE SALES AGENT Team Pager [phone] ID/MECHANISM OF INJURY: Derrick Hobson is a 59 y.o. Male s/p fall down stairs on 11/05/14. HISTORY OF PRESENT ILLNESS: Derrick Hobson is a 59 y.o. male presents to [facility] 2 days after he feel down 1/2 flight of stairs,on 11/06. Patient was drinking alcohol as per his usual routine and feel down half a flight of stair and was knocked unconscious. When he awoke an unknown length of time he was disoriented to place andsituation. He was helped home by friends. 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 He presented to [facility] ED where a head CT showed a small IPH for which he was transferred to [facility] for further care. PMHx: Will need to contact patient's PCP on Sunday to confirm: Insomnia Anxiety/Depression Chronic pain Asthma HTN [facility] MED[facility] on 11/06: Prescriptions prior to admission Medication [...] mouth nightly as needed for Sleep. 1-2 tabletsnightly PRN ??? traZODone (DESYREL) 50 mg Tablet [...] 10 mg; oxyCODONE (ROXICODONE) immediate release tablet 5-10 mg; HYDROmorphone (DILAUDID) injection 0.4 mg; acetaminophen (TYLENOL) [...] famotidine (PEPCID) tablet 20 mg OR [DISCONTINUED] famotidine (PEPCID) injection 20 mg; nalOXone (NARCAN) injection 0.2 [...] any extremity. He does report a frontal CEJA, cervical neck pain, and R chest wall pain. All other syst ems negative. PHYSICAL EXAM: VITALS: Last value Range [...] no contusions, Non tender to palpation over entire abdomen PELVIS: Stable to AP and/or lateral compression EXTREMITIES: Normal and symmetric movement, normal range of motion, no joint swelling SPINE: No deformity, no stepoffs, no tenderness to palpation and no abrasions over thoracic or lumbar spine; Cervical spine as above SKIN: No lacerations, abrasions or contusions on complete skin exam NEURO: Mental Status: awake and alert, appears anxious with mild tremor; Mild diaphoresis; Orientedx3, unclear or place but is easily reoriented Cranial Nerves: CN II - XII intact Motor: normal 5/5 strength in all tested muscle groups Sensory: no sensory deficits noted LABORATORY: Recent Labs 11/07/14 0355 11/06/14 1930 WBC [...] Images are limited by lack of small [id number] axial images. 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 NBO: Ordered, LBM EDGE BASTER ?? Check LFTs in AM ?? RENAL: [...] DISPO/Discharge Planning: NSCU status, Full code MEREDITH ALONSO APRN 11/07/2014 documented in this encounter H&P Notes * Dorian Pena MD - 11/06/2014 9:57 PM EDT TRAUMA & ACUTE SURGICAL CARE ADMISSION HISTORY AND PHYSICAL Patient Name: Derrick Hobson Level of Activation: Alert MR#: [id number] [ ]Scene Call or [X]Hospital Transfer : [id number] CC/MECHANISM OF INJURY: 59 y.o. Male s/p fall down 1/2 flight stairs HISTORY OF PRESENT ILLNESS: Derrick Hobson is a 59 y.o. male presents to [facility] 2 days after he feel down 1/2 flight of stairs.Patient was drinking alcohol as per his usual routine and feel down half a flight of stair and was knocked unconscious. When he awoke an unknown length of time he was disoriented to place and situation. He was helped home by friends. 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 He was complaining of band-like headache and R chest pain. He presented to OSH ED where a head CT showed a small IPH for which hewas transferred here. Primary survey revealed: intact airway, equal breath sounds/respirations, present 2+ peripheral pulses with stable vital signs and no signs of bleeding, GCS 15 (6 - Follows simple motor commands, 5 -Alert and oriented, 4 - Opens eyes on [...] Range Ab Screen Interp Negative Expires at 9923 on: 11/09/2014 RADIOLOGY: FAST Scan - negative [...] to Trauma Surgery Service in good condition, Dr. Pena, Dorian Major MD, attending ?? NPO ?? IV Fluids: [...] monitor closely for EtOH withdrawl ?? [facility] REN RONQUILLO MD 11/06/2014 TRAUMA ATTENDING ADDENDUM Pt seen and examined with the resident staff in the trauma bay in response to a TRAUMA ALERT activation. I agree with the above note and plan with the following additions/modifications. In brief pt is a 59 yo male who presents on transfer after being evaluated at an OSH for CEJA and chest pain following a fall 48 hours [employer]. Pt reports falling a half flight of stairs while drinking with positive LOC. He has had progressive CEJA and chest pain for which he presnted to the OSH and was diagnosed with aright small IPH along with rib fracture for [...] the NSCU with NSG consultation. Q2H neurochecks and full spine until ETOH levels below intoxication level. Thiamine and folate to be administered. Ativan assessment scale ordered as high risk for ETOH withdrawal. Narcotics for pain control. Tertiary in the AM. documented in this encounter ED Notes * May Dillard MD - 11/06/2014 8:50 PM EDT No chief complaint on file. HPI No Known Allergies Review of Systems Physical Exam Procedures MDM ED Course: Emergency Department Derrick Hobson is a 59 y.o. male who presents to [facility] with trauma. History of Present Illness / Review of Systems The patient is resting comfortably in the bed. Physical Exam: I reviewed the patient???s vitals as recorded in the electronic medical record and ED nursing notes. The patient was non-toxic appearing and in no obvious distress. Assessment/Plan: This 59 y.o. male was transferred from an outside hospital emergency department to receive specialty care provided by the traumaservice for fall with head injury. I discussed the case with resident/fellow of the accepting service. The patient was deemed to be stable and not requiring significant involvement from the attending emergency physician at this time. The accepting service has assumed further care of the patient. Please see their notes for any further clinical details. May Dillard MD 11/07/14 0951 documented in this encounter Miscellaneous Notes * Plan of Care - Carolyn Howard RN [...] 15mg oxycodone to control pain. Pt refused inhaler and nebulizer over night, but agreed he would [...] Ongoing (Interventions Implemented as Appropriate) 11/15/14 1447 11/19/14 0255 Discharge Needs Assessment Concerns to be Addressed [...] outcomes. Outcome: Ongoing (Interventions Implemented as Appropriate) 11/19/14 0255 Fall/Trauma/Injury Risk (Adult, Obstetrics) Absence of Trauma/Injury/Falls making progress toward outcome Problem: Acute Alcohol Withdrawal Syndrome, Risk For/Actual (Adult, Obstetrics) Goal: Signs and symptoms of listed potential problems will be absent or manageable (reference (Acute Alcohol Withdrawal Syndrome, Risk For/Actual (Adult, Obstetrics)) CPG) Outcome: Ongoing (Interventions Implemented as Appropriate) 11/11/14 1546 11/19/14 0255 Acute Alcohol Withdrawal Syndrome, Risk For/Actual Problems Assessed (Alcohol Withdrawal Syndrome) all -- Problems Present (Alcohol Withdrawal Syndrome) -- none * Plan of Care - Sherri Spear RN [...] in neck and ribs. Administered oxycodone 15mg q4h.Encourage use of call larson when ambulating in room. Naknek J collar in place; collar care done. Runsslightly bradycardic. VSS. Complaints of worsening migraine @ 1515 when with OT. PRIVACY ATTORNEY notified. Will continue to monitor. PLAN MOVING [...] problems will be absent or manageable (reference (Acute Alcohol Withdrawal Syndrome, Risk For/Actual (Adult, Obstetrics)) CPG) 11/11/14 1546 11/17/141809 Acute Alcohol Withdrawal Syndrome, Risk For/Actual Problems Assessed (Alcohol Withdrawal Syndrome) all -- Problems Present (Alcohol Withdrawal Syndrome) -- none * Plan of Care - Lea Grijalva RN [...] appeared sleeping between care over the night. Naknek J collar on and aligned. Patient ambulates with standby assist, encouraged to call for assist when up in room. Voiding without issue. VSS. PLAN MOVING FORWARD: Pain control Mobilize INDIVIDUALIZED FALL PREVENTION: Assistance: Standby assist, cane Supervision: Minimal assist with ADLs Surveillance: Purposeful roundingEfrain CPG GOAL OUTCOME EVALUATION: Goal: Individualization and Mutuality Outcome: Ongoing (Interventions Implemented as Appropriate) 11/11/14 1546 11/12/14 0411 11/17/14 181 Individualization [...] and Safety Assistive Device Cane -- OTHER Preez Fall Risk High -- Goal: Infection Control [...] problems will be absent or manageable (reference (Acute Alcohol Withdrawal Syndrome, Risk For/Actual (Adult, Obstetrics)) CPG) Outcome: Ongoing (Interventions Implemented as Appropriate) 11/11/14 1546 11/17/141809 Acute Alcohol Withdrawal Syndrome, Risk For/Actual Problems Assessed (Alcohol Withdrawal Syndrome) all -- Problems Present (Alcohol Withdrawal Syndrome) -- none * Plan of Care - Sherri Spear RN [...] per PT. Complains of pain 8-1010; receives 15mg Oxycodone; see MAR. No IV access. Pt off unit in AM for vascular study. No DVT present. Naknek J in place for neck tenderness. Left hand/wrist/finger splinted. Discussion of putting pt on bed alarmif not using calling appropriately. Runs bradycardic. BP meds held most of day for low BP/HR. Will continue to monitor. PLAN MOVING FORWARD: -Pain Control -Mobilize -Fall prevention. -Possible discharge tomorrow? INDIVIDUALIZED FALL PREVENTION: Assistance: -standby assist Supervision: -Eyes on pt while ambulating. Surveillance: -Purposeful Rounding -Masimo -Team Care -Bedside Nurse Knowledge Exchange CPG OUTCOME EVALUATION: Goal: Individualization and Mutuality 11/11/14 1546 11/12/14 0411 11/17/141809 Individualization Individualize [...] -- Goal: Fall Prevention-Safe Patient Handling 11/17/14 08 Musculoskeletal Interventions Activity/Level of Assistance up in [...] High Goal: Infection Control 11/17/14 0826 11/17/14 1810 Coping/Psychosocial Response Interventions Counseling reassurance provided -- [...] problems will be absent or manageable (reference (Acute Alcohol Withdrawal Syndrome, Risk For/Actual (Adult, Obstetrics)) CPG) 11/11/14 1546 11/17/14 1810 Acute Alcohol Withdrawal Syndrome, Risk For/Actual Problems Assessed (Alcohol Withdrawal Syndrome) all -- Problems Present (Alcohol Withdrawal Syndrome) -- none * Consult Note - Rabia Mcdonald MD - [...] and possible IPH. He has remained inpatient status since that time. Patient reports he had some pain in his wrist and small finger of the L hand since the time of his fall, however xrays not initially obtained. He denies further injury to his handsince the time of his initial injury. Xrays obtained on 11/16 showed evidence of distal radius and ulna fx as well as small finger distal phalanx fx. Patient reports he suffered a fx to the L distal radius in Nov 2013, which was treated non-op at [facility] in a splint. Patient reports he also [...] minimal pain to palpation over the small finger distal phalanx. He denies pain over radial aspect of wrist. He denies numbness or tingling. He has been using the hadn since the accident with little difficutly. He does report some weakness in manager document control since his injury in Nov 2013, however [...] (5/5) shoulder abduction, elbow flexion/extension, wrist flexion/extension, manager document control, EPL,AIN Brisk capillary refill 2+ radial pulse Imaging: [...] to fall down stairs on 11/06, now with L wrist and small finger distal phalanx fracture. L distal radius and ulna fx appear chronic in setting of known hx of distal radius fx. L small finger distal phalanx fracture appears most likely tohave occurred at time of injury on 11/06. NV intact without significant rotational defect. Placed in splint. Although wrist fracture appears to be old and pt has not gross deficit in strengtht or ROMon exam, pt reporting some pain on ulnar aspect of wrist that is possibly related to tendon (insetting of dorsal angulation defect of prior fracture). Placed in volar resting splint. Maintain NWB RUEin splint. Will plan to have patient f/u in 1 month with xrays in ortho upper extremity clinic. Surgical tx options to correct L small finger and L wrist deformities were discussed with patient and patient was advised that if he would like to proceed with surgery to correct these deformities he maycontact the clinic or the orthopaedic service at any time, or discuss this at his follow-up appointm ent. - Activity- NWB RUE - Follow-up- 2 weeks with x-rays in cast/splint prior to appt - Discuss with Dr. Mami De Leon MD Orthopaedic Surgery Pager: #[phone] I examined Derrick Hobson. He has a malunited left wrist fracture with new onset of pain caused by his recent fall. He reports that he injured the left small finger DIP joint last year and doesn't believe that this is necessarily an acute injury. He has been placed into a mallet splint and we will do followup xrays in about 4 weeks. We also discussed the option of distal radius osteotomy to address his malunion in the future. RABIA MCDONALD MD * Plan of Care - Lea Grijalva RN [...] Supervision: Independent with ADLs Surveillance: Purposeful rounding, Efrain, q 4 hr neuro checks CPG GOAL [...] problems will be absent or manageable (reference (Acute Alcohol Withdrawal Syndrome, Risk For/Actual (Adult, Obstetrics)) CPG) Outcome: Ongoing (Interventions Implemented as Appropriate) 11/11/14 1546 11/12/14 0411 Acute Alcohol Withdrawal Syndrome, Risk For/Actual Problems Assessed (Alcohol Withdrawal Syndrome) all -- Problems Present (Alcohol Withdrawal Syndrome) -- situational response * Plan of Care - Ilda Brandt RN [...] within room, took shower and shaved, had goodPO fluid/nutrition intake. Voiding independently in bathroom. Pain controlled with PRN oxycodone, 15 mg Q4 PRN, pt still reporting high levels of pain 8 but states that I had a lot of pain before my accident. Pt requesting pain medication be given on every 4 hours schedule. Pt had x-rays of L wrist and L 5th finger, x-rays revealed L wrist and L 5th finger fractures. Pt will have ortho splint injured areas today. Pt also c/o red irritated skin under kotlik-j collar. Collar care completed,skin cleansed and shaved and miconazole powder applied [...] near unit station;supervised activity;nonskid shoes/slippers when out ofbed -- Perez Fall Risk History of Falling [...] Assessment Outcome: Ongoing (Interventions Implemented as Appropriate) * Plan of Care - Adilene Ashford RN [...] po q4h. Had shower today, feels good. Naknek J collar on and intact, pt leaving [...] Safety Precautions/Fall Reduction -- assistive device;commode/urinal/bedpan at bedside;environmental modification;fall reduction program maintained;nonskid shoes/slippers [...] Environment Transportation Available -- -- -- 11/13/14 4157 11/15/14 1447 Discharge Needs Assessment Concerns to [...] problems will be absent or manageable (reference (Acute Alcohol Withdrawal Syndrome, Risk For/Actual (Adult, Obstetrics)) CPG) Outcome: Ongoing (Interventions Implemented as Appropriate) 11/11/14 1546 11/12/14 0411 Acute Alcohol Withdrawal Syndrome, Risk For/Actual Problems Assessed (Alcohol Withdrawal Syndrome) all -- Problems Present (Alcohol Withdrawal Syndrome) -- situational response * Plan of Care - Ilda Brandt RN [...] pt still reporting 8/10 pain at times throughout shift despite taking med Q4 as available. Pt was up in chair for meals and activities, went for several walks on unit w/ cane + s/b assist. Pt took shower earlier. Remains on RA, lung sounds coarse,has been receiving scheduled neb tx's to good effect. Pt w/ red rash under kotlik-J collar, also c/o pain in L wrist and L pinky finger - L pinky joint appears displaced. advised and plans to see pt for these concerns. PLAN MOVING FORWARD: Monitor pain, encourage [...] Reduction -- assistive device;low bed;lighting adjusted for task/safety;fall reduction program maintained;supervised activity;room near unit station;nonskid shoes/slippers [...] notice - 2-3 days ahead of time) * Plan of Care - Adilene Ashford RN [...] wanting to sleep uninterrupted tonight. Pt continues toexperience rib pain when coughing, encouraged to splint with pillows. Pt voiding large amounts in BR, Naknek J collar intact. PLAN MOVING FORWARD: Pain [...] Handling Outcome: Ongoing (Interventions Implemented as Appropriate) 11/12/14203511/14/14 1945 Musculoskeletal Interventions Activity/Level of Assistance -- [...] or friend will provide -- -- 11/13/14 9830 Discharge Needs Assessment Concerns to be Addressed [...] problems will be absent or manageable (reference (Acute Alcohol Withdrawal Syndrome, Risk For/Actual (Adult, Obstetrics)) CPG) Outcome: Ongoing (Interventions Implemented as Appropriate) 11/11/14 1546 11/12/14 0411 Acute Alcohol Withdrawal Syndrome, Risk For/Actual Problems Assessed (Alcohol Withdrawal Syndrome) all -- Problems Present (Alcohol Withdrawal Syndrome) -- situational response * Plan of Care - Delmy Ko RN - 11/14/2014 2:45 PM EDT Problem: General Plan of Care Goal: Individualization and Mutuality Pt remains orientated and aware of the dangers of walking with assistance. Bed and chair alarm in place as a reminder. Goal: Fall Prevention-Safe Patient Handling 11/14/14 1442 Safety Interventions Safety Precautions/Fall Reduction fall reduction program maintained;environmental modification Goal: Infection Control 11/14/14 144 Safety Interventions Isolation Precautions standard precautions maintained Problem: Fall/Trauma/Injury Risk (Adult, Obstetrics) Goal: Absence of Trauma/Injury/Falls Patient will demonstrate the desired outcomes. 11/14/14 144 Fall/Trauma/Injury Risk (Adult, Obstetrics) Absence of Trauma/Injury/Falls making progress toward outcome Problem: Acute Alcohol Withdrawal Syndrome, Risk For/Actual (Adult, Obstetrics) Goal: Signs and symptoms of listed potential problems will be absent or manageable (reference (Acute Alcohol Withdrawal Syndrome, Risk For/Actual (Adult, Obstetrics)) CPG) 11/11/14 1546 Acute Alcohol Withdrawal Syndrome, Risk For/Actual Problems Assessed (Alcohol Withdrawal Syndrome) all * Plan of Care - Adilene Ashford RN [...] bed, reading, pleasant, conversational, bed alarm on. Naknek J collar on but pt was observed [...] Handling Outcome: Ongoing (Interventions Implemented as Appropriate) 11/12/14203511/13/14 2105 Musculoskeletal Interventions Activity/Level of Assistance -- up [...] Outcome: Ongoing (Interventions Implemented as Appropriate) 11/13/14 155 Fall/Trauma/Injury Risk (Adult, Obstetrics) Absence of Trauma/Injury/Falls making progress toward outcome Problem: Acute Alcohol Withdrawal Syndrome, Risk For/Actual (Adult, Obstetrics) Goal: Signs and symptoms of listed potential problems will be absent or manageable (reference (Acute Alcohol Withdrawal Syndrome, Risk For/Actual (Adult, Obstetrics)) CPG) Outcome: Ongoing (Interventions Implemented as Appropriate) 11/11/14 1546 11/12/14 0411 Acute Alcohol Withdrawal Syndrome, Risk For/Actual Problems Assessed (Alcohol Withdrawal Syndrome) all -- Problems Present (Alcohol Withdrawal Syndrome) -- situational response * Plan of Care - Delmy Ko RN - 11/13/2014 3:53 PM EDT Problem: General Plan of Care Goal: Individualization and Mutuality 11/12/14 0411 Individualization Individualize the Plan of Care: safety, reorientation Goal: Fall Prevention-Safe Patient Handling 11/13/14 1551 Safety Interventions Safety Precautions/Fall Reduction environmental modification;fall reduction program maintained;nonskid shoes/slippers when out of bed;bed alarm;chair alarm Goal: Infection Control 11/13/14 155 Safety Interventions Isolation Precautions standard precautions maintained Infection Prevention environmental surveillance;hydration promoted;nutrition promoted;promote handwashing Problem: Fall/Trauma/Injury Risk (Adult, Obstetrics) Goal: Absence of Trauma/Injury/Falls Patient will demonstrate the desired outcomes. 11/13/141550 Fall/Trauma/Injury Risk (Adult, Obstetrics) Absence of Trauma/Injury/Falls making progress toward outcome Pt.'s room organized to minimize risk of injury secondary to falls. Obstacles in pt. pathway to bathroom and chair removed. Call larson and belongings placed within reach at all times. Instructions given with regard to notifying nurse when pt. is about to ambulate so nurse may provide assistance if needed. Bed and chair alarm placed on pt as a reminder to prevent falls * Plan of Care - Carolyn Howard RN - 11/13/2014 5:02 AM EDT Problem: General Plan of Care Goal: Plan of Care Review Outcome: Ongoing (Interventions Implemented as Appropriate) 11/10/14 1339 11/11/14 1546 11/12/14 2036 Plan of Care Review Plan of Care [...] given 15mg oxycodone to control pain. Pt made deal with RN that he would take nebulizer treatment 1x at night, and then again in morning. Pt slept for most of night. PLAN MOVING FORWARD: Continue to monitor for pain, continue to monitor safety INDIVIDUALIZED FALL PREVENTION: Assistance: standby assist Supervision: intermittent Surveillance: Purposeful rounding, masimo, bed alarm Goal: Individualization and Mutuality 11/12/14410 Individualization Individualize [...] for task/safety;low bed;muscle strengthening facilitated;nonskid shoes/slippers when out of bed;room near unit [...] problems will be absent or manageable (reference (Acute Alcohol Withdrawal Syndrome, Risk For/Actual (Adult, Obstetrics)) CPG) Outcome: Ongoing (Interventions Implemented as Appropriate) 11/11/14 1546 11/12/14 0411 Acute Alcohol Withdrawal Syndrome, Risk For/Actual Problems Assessed (Alcohol Withdrawal Syndrome) all -- Problems Present (Alcohol Withdrawal Syndrome) -- situational response * Plan of Care - Almaz Martinez RN [...] Pt receiving 15 Oxycodone for generalized pain. Naknek J on and aligned. Very pleasant and [...] problems will be absent or manageable (reference (Acute Alcohol Withdrawal Syndrome, Risk For/Actual (Adult, Obstetrics)) CPG) Outcome: Ongoing (Interventions Implemented as Appropriate) 11/11/14 1546 11/12/14 0411 Acute Alcohol Withdrawal Syndrome, Risk For/Actual Problems Assessed (Alcohol Withdrawal Syndrome) all -- Problems Present (Alcohol Withdrawal Syndrome) -- situational response * Plan of Care - Carolyn Howard RN [...] at change of shift, patient found with kotlik J upside down and sideways. Neckstabalized, and Naknek J adjusted. Patient on bed alarm and [...] intermittent Surveillance: Purposeful rounding, masimo, bed alarm CPG GOAL OUTCOME EVALUATION: Goal: Individualization and Mutuality 11/12/14410 Individualization Individualize the Plan of Care: safety, reorientation Goal: Fall Prevention-Safe Patient Handling 11/08/14 0800 11/11/142043 Musculoskeletal Interventions Activity/Level of Assistance -- up [...] Fall Risk -- High Goal: Infection Control 11/11/142043 Coping/Psychosocial Response Interventions Counseling goal setting facilitated;personal [...] problems will be absent or manageable (reference (Acute Alcohol Withdrawal Syndrome, Risk For/Actual (Adult, Obstetrics)) CPG) 11/11/14 1546 11/12/14 0411 Acute Alcohol Withdrawal Syndrome, Risk For/Actual Problems Assessed (Alcohol Withdrawal Syndrome) all -- Problems Present (Alcohol Withdrawal Syndrome) -- situational response * Plan of Care - Elinor Diamond RN [...] Ongoing (Interventions Implemented as Appropriate) 11/08/14 0800 11/11/14 08 Musculoskeletal Interventions Activity/Level of Assistance -- up ad [place];up in room;ambulated;with walker;with 1-person assist Positioning -- independent Muscle Strengthening -- activity/mobility promoted;mobility in bed promoted;personal routines for BADL/IADL promoted;sitting on edge of bed encouraged Self-Care Promotion -- bathing assistance provided;dressing assistance provided Safety Interventions Safety Precautions/Fall Reduction -- assistive device;bed alarm;commode/urinal/bedpan at bedside;environmental modification;fall reduction program maintained;lighting adjusted for task/safety;nonskidshoes/slippers when out of bed;supervised activity Perez Fall [...] problems will be absent or manageable (reference (Acute Alcohol Withdrawal Syndrome, Risk For/Actual (Adult, Obstetrics)) CPG) Outcome: Ongoing (Interventions Implemented as Appropriate) 11/11/14 1546 Acute Alcohol Withdrawal Syndrome, Risk For/Actual Problems Assessed (Alcohol Withdrawal Syndrome) all Problems Present (Alcohol Withdrawal Syndrome) none * Plan of Care - Carolyn Howard RN - 11/10/2014 11:45 PM EDT Problem: General Plan of Care Goal: Plan of Care Review 11/10/14 1339 11/10/14 1934 Plan of Care Review Plan of Care Outcome Status ongoing (interventions implemented as appropriate) -- Progress progress toward functional goals is gradual -- Coping/Psychosocial Response Interventions Plan of Care Reviewed with -- patient OUTCOME EVALUATION NOTE: OUTCOME SUMMARY: At beginning of shift pt was in carlos restraint. Pt was assessed to longer need the restraint and when order no new order was needed. RN dc'd restraint but maintained patient on bed alarm andeducated patient on safety. Pt on ativan scale, not scoring. Pt given 10mg oxycodone to control pain. Pt c/o headache, relieved by tylenol. Pt appropriately ringing. PLAN MOVING FORWARD: Continue to monitor for pain, continue to monitor safety INDIVIDUALIZED FALL PREVENTION: Assistance: Pt not oob this shift Supervision: intermittent Surveillance: Purposeful rounding, restraint visual checks, and carlos (until dc'd), masimo, bed alarm CPG GOAL OUTCOME EVALUATION: Goal: Individualization and Mutuality 11/10/14 2321 Individualization Individualize the Plan of Care: discontinue restraints, maintain safety, Goal: Fall Prevention-Safe Patient Handling 11/08/14 0800 11/10/14 1934 11/10/14 2158 Musculoskeletal Interventions Activity/Level of Assistance -- (pt [...] Risk -- -- High Goal: Infection Control 11/10/14 193 Coping/Psychosocial Response Interventions Counseling goal setting facilitated;personal [...] problems will be absent or manageable (reference (Acute Alcohol Withdrawal Syndrome, Risk For/Actual (Adult, Obstetrics)) CPG) 11/10/14 2321 Acute Alcohol Withdrawal Syndrome, Risk For/Actual Problems Assessed (Alcohol Withdrawal Syndrome) all Problems Present (Alcohol Withdrawal Syndrome) situational response * Plan of Care - Azalea Cotton RN [...] started day in mitts, wrist restraints, and carlos. Throughout the day RN progressivelyremoved devices as patient cleared/received Ativan and became [...] Patient has a call larson within reach and alerts RN appropriately when they want to mobilize. [...] Ongoing (Interventions Implemented as Appropriate) 11/08/14 0800 11/09/14209911/10/14 1016 Musculoskeletal Interventions Activity/Level of Assistance -- [...] Control Outcome: Ongoing (Interventions Implemented as Appropriate) 11/09/14209911/10/14 1016 Coping/Psychosocial Response Interventions Counseling reassurance provided;understanding [...] problems will be absent or manageable (reference (Acute Alcohol Withdrawal Syndrome, Risk For/Actual (Adult, Obstetrics)) CPG) Outcome: Ongoing (Interventions Implemented as Appropriate) 11/10/14 1339 Acute Alcohol Withdrawal Syndrome, Risk For/Actual Problems Assessed (Alcohol Withdrawal Syndrome) all Problems Present (Alcohol Withdrawal Syndrome) situational response * Consult Note - Jordi Hart RN - 11/10/2014 11:28 AM EDT This chart was reviewed for a quality improvement initiative. Jordi Hart Pager #[phone] Domenic Lovelace Pager #[phone] * Plan of Care - Fabby Abbott RN [...] off bed alarm and had pulled off Naknek J collar by the time staff got to his bedside. He wasuncooperative at this time. re- ordered restraints, and pt placed in Carlos. He was able to untie this and get out of bed/Naknek Cole again. Security assisted in putting pt in bilateral mitts and soft wrist restraints. Over the course of the night, pt became increasingly agitated, confused, and diaphoretic. Ativan Assessment score increased to 11 points, and PRN and scheduled Ativan given with no effect. For several hours, he thrashed around in bed, attempted to take off his mitts, and could not be re- directed or re-oriented. MD at bedside when pt was at peak of agitation and having hallucinations. Pt's BP also elevated, with diastolics into the low 100s. PRN labetolol administered x2 with minimal effect. Pt reports severe pain in right ribs [...] Implemented as Appropriate) 11/08/14 0800 11/09/14 2100 Musculoskeletal Interventions Activity/Level of Assistance -- up [...] Ongoing (Interventions Implemented as Appropriate) 11/09/14 2100 Coping/Psychosocial Response Interventions Counseling reassurance provided;understanding of situation facilitated;verbalization of feelings encouraged Safety Interventions Isolation Precautions standard precautions maintained Infection Prevention bronchial hygiene promoted;environmental surveillance;hydration promoted;rest/sleep promoted Goal: Discharge Needs Assessment Outcome: Ongoing (Interventions Implemented as Appropriate) Problem: Skin Integrity Impairment, Risk/Actual (Adult, Obstetrics) Goal: Skin Integrity/Wound Healing Patient will demonstrate the desired outcomes. Outcome: Ongoing (Interventions Implemented as Appropriate) 11/10/14 0408 Skin Integrity Impairment, Risk/Actual (Adult, Obstetrics) Skin Integrity/Wound Healing making progress toward outcome Problem: Fall/Trauma/Injury Risk (Adult, Obstetrics) Goal: Absence of Trauma/Injury/Falls Patient will demonstrate the desired outcomes. Outcome: Ongoing (Interventions Implemented as Appropriate) 11/10/14 0408 Fall/Trauma/Injury Risk (Adult, Obstetrics) Absence of Trauma/Injury/Falls making progress toward outcome Problem: Brain Injury, Moderate Traumatic (Aleyda Coma Scale Score of 9 to 12) (Adult) Goal: Signs and symptoms of listed potential problems will be absent or manageable (reference (Brain Injury, Moderate Traumatic (Monroe Coma Scale Score of 9 to 12) (Adult)) CPG) Outcome: Ongoing (Interventions Implemented as Appropriate) 11/08/14 19511/10/14 040 Brain Injury, Moderate Traumatic (Aleyda Coma Scale Score of 9 to 12) Problems Assessed (Moderate Traumatic Brain Injury (Monroe Coma Scale score of 9 to 12)) -- all Problems Present (Moderate Traumatic Brain Injury (Aleyda Coma Scale score of 9 to 12)) pain;situational response -- * Plan of Care - Diomedes Cerda RN [...] the other was to remove ankle restraints. Has not reached for his Daphnie Galvan today, voiding good amounts. Scoring (2) & (4) on the ativan assessment scale since arrival. No ativan given, pain controled with 15 mg of PO oxycodone. PLAN MOVING FORWARD: Reorient, q2 ativan assessment/vitals, PRN pain control INDIVIDUALIZED FALL PREVENTION: Assistance: Independent with stand by assist per unit protocol Supervision: Hands on assist with all ADL's Surveillance: Masimo, purposeful rounding CPG GOAL OUTCOME EVALUATION: Goal: [...] Fall Risk -- High Goal: Infection Control 11/08/1479911/09/14 0811/09/14 1200 Coping/Psychosocial Response Interventions Counseling calming techniques promoted -- -- Safety Interventions Isolation Precautions -- -- standard precautions maintained Infection Prevention -- environmental surveillance;hydration promoted;nutrition promoted;promote handwashing;rest/sleep promoted -- Goal: Discharge Needs Assessment 11/07/14184811/08/141951 Discharge Needs Assessment Concerns to be Addressed [...] clustered;sleep/wake cycle promoted Intervention: Sensation Impairment Protection 11/09/141199 Peripheral Neurovascular Interventions Sensation Impairment Protection environment clear of obstacles/tripping hazards;skin surveillance Intervention: Visual Performance Enhancement 11/08/141999 HEENT Interventions Visual Performance Enhancement lighting provided/adjusted * Plan of Care - Miguel Lala RN [...] the evening out impulsive but answering orientation questions. As the evening progressed his orientation level decreased [...] comfort Goal: Fall Prevention-Safe Patient Handling 11/08/14 0800 11/08/14 1700 11/08/141999 Musculoskeletal Interventions Activity/Level of Assistance [...] Reduction bed alarm;fall reduction program maintained;lighting adjusted fortask/safety;low bed;room near unit station Perez Fall Risk [...] promoted;rest/sleep promoted Goal: Discharge Needs Assessment 11/07/14 18411/08/141951 Discharge [...] from under/on patient Intervention: Oral Nutrition Promotion 11/08/14799 Nutrition Interventions Oral Nutrition Promotion positioned for [...] clustered;breathing techniques utilized;sleep/rest promoted Intervention: Airway/Ventilation Management 09/07/15 0637 Respiratory Interventions Airway/Ventilation Management comfort measures provided;hydration promoted Goal: Signs and symptoms of listed potential problems will be absent or manageable (reference (Brain Injury, Moderate Traumatic (Monroe Coma Scale Score of 9 to 12) (Adult)) CPG) 11/08/141951 Brain Injury, Moderate Traumatic (Monroe Coma Scale Score of 9 to 12) Problems Assessed (Moderate Traumatic Brain Injury (Aleyda Coma Scale score of 9 to 12)) all Problems Present (Moderate Traumatic Brain Injury (Monroe Coma Scale score of 9 to 12)) pain;situational response * Plan of Care - Marie Rueda RN - 11/08/2014 8:00 PM EDT Problem: General Plan of Care Goal: Plan of Care Review Outcome: Ongoing (Interventions Implemented as Appropriate) 11/07/14 0348 11/08/14 1700 Plan of Care Review Plan of Care Outcome Status ongoing (interventions implemented as appropriate) -- Progress progress towards functional goals is fair -- Coping/Psychosocial Response Interventions Plan of Care Reviewed with -- patient OUTCOME EVALUATION NOTE: OUTCOME SUMMARY: q 2 hr ativan assessment and treatment as per orders OOB w/ FWW, gait belt, 1 person contact Pt A+Ox4 5/5 strengths Pt refused collar care earlier today; [...] Assessment Outcome: Ongoing (Interventions Implemented as Appropriate) 11/07/14184811/08/141951 Discharge Needs Assessment Concerns to be Addressed [...] toward outcome Problem: Brain Injury, Moderate Traumatic (Monroe Coma Scale Score of 9 to 12) (Adult) Goal: Signs and symptoms of listed potential problems will be absent or manageable (reference (Brain Injury, Moderate Traumatic (Aleyda Coma Scale Score of 9 to 12) (Adult)) CPG) Outcome: Ongoing (Interventions Implemented as Appropriate) 11/08/141951 Brain Injury, Moderate Traumatic (Aleyda Coma Scale Score of 9 to 12) Problems Assessed (Moderate Traumatic Brain Injury (Monroe Coma Scale score of 9 to 12)) all Problems Present (Moderate Traumatic Brain Injury (Aleyda Coma Scale score of 9 to 12)) pain;situational response * Initial Assessments - Lansing Yasmin, OT - 11/08/2014 2:01 PM EDT Occupational [...] alone in a second floor apartment in [place], [place]. Pt states thatbathroom includes a tub shower with grab bars. Pt has friends who provide rides as needed for shopping / appointments. Pt reports that he sleeps either in reclining chair or in flat bed typically. Stairs: 14 stairs with one rail to enter home Baseline Mobility: independent without use of assistive device; Reports h/o multiple falls; Does not drive Equipment at home: none Precautions/Special Considerations: Full code; High risk for skin breakdown; At risk to fall; Spinal Precautions: No bending, twisting, or lifting >5-10 #s, Use log roll for bed mobility, Naknek J at all times; Maintain SBP <160; EtOH Withdrawal - on Ativan assessment scale Activity Orders: Activity as tolerated Diet: Regular Code Status: Full Code Subjective: I have peed all over myself. This collar is a nuisance, you can't see. Objective: Seen today for OT evaluation in collaboration with PJohnathan. Cognitive Status/Behavior: alert, oriented to person, place, and time, cooperative, not too talkative or forthcoming. Needs frequent verbal cues during mobility. Appears somewhat impulsive, needed cues to wait before standing Communication: Able to answer [...] and verbal curing for managing walker to engineering specialist front of the toilet. Did not get [...] evaluation Total timed interventions: 0 minutes Pager: [phone] YASMIN RAJAN OT 11/08/2014 Occupational Therapy Rehabilitation Department * Initial Assessments - Patsy Alcaraz, PT - 11/08/2014 9:45 AM EDT Physical Therapy Evaluation Patient profile: Derrick Hobson is a 59 y.o. right handed male presented to [facility] on 11/06/2014 by Dorian Singleton MD 2 days after he feel down 1/2 flight of stairs, on 11/06. Per general surgery,patient was drinking alcohol as per his usual routine and feel down half a flight of stairs and wasknocked unconscious. When he awoke after an unknown [...] alone in a single story home in [place], [place]. Pt states that bathroom includes a tub shower with grab bars. Pt has friends who provide rides as needed for shopping /appointments. Pt reports that he sleeps either in reclining chair or in flat bed typically. Stairs: 14 stairs with one rail to enter home Baseline Mobility: independent without use of assistive device; Reports h/o multiple falls; Does not drive Equipment at home: none Precautions/Special Considerations: Full code; High risk for skin breakdown; At risk to fall; Spinal Precautions: No bending, twisting, or lifting >5-10 #s, Use log roll for bed mobility, Naknek J at all times; Maintain SBP <160; [...] with all transfers and mobility. Pt reports 10/ headache in addition to (R) LQ pain from rib fracture sites - RN notified. Pt participated in standardized assessment via [employer] with raw score of 9/20. Pt encouraged to ambulate with gait belt and rolling walker frequently with staff, getting into the bathroom fortoileting and walking out in the villeda as able. The pt would benefit from skilled therapy services to maximize functional independence while in the hospital and to address limitations as noted above. Goals: To be achieved by 11/13/14: 1. Pt. to demonstrate knowledge of safety limitations and precautions and will appropriately request assistance for functional activities and to mobilize. 2. [...] independent, using one railing with second person toprovide assist for walker management. 6. Family or caregiver to demonstrate understanding of therapeutic interventions to support the care of the patient. Plan: PT services to resume Friday 11/10. Pt to be seen 3-5 times per week for therapy including Bed mobility, Transfers, Assistive device/technique, Stairs, Exercise, Safety , Precautions/protocol, Gait , Balance and Discharge planning. Patient agrees with plan as stated above. Discharge Recommendations: Patient requires ongoing 24/ supervision. Patient would benefit from skilled therapy interventionsto promote functional independence and safety while improving activity tolerance. No other consults recommended at this time Equipment needs: Rolling walker. [facility] 6 Clicks Basic Mobility Inpatient Short Form (Without Stair Climbing) How much difficulty does the patient currently have... Unable without assistance (1) A Lot (2) A Little (3) None (4) 1. Turning over in bed (including adjusting bedclothes, sheets and blankets)? X 2. Sitting down on and standing up from a chair with arms (e.g., wheelchair, bedside commode, etc.)? X 3. Moving from lying on back to [...] minutes PATSY ALCARAZ PT, DPT 11/08/2014 Pager: [phone] Physical Therapy Inpatient Rehabilitation Department * Plan of Care - Leonor Denney RN [...] adjusted to patient tolerance Intervention: Fluid Management 11/08/14620 Nutrition Interventions Fluid Management fluids adjusted OUTCOME [...] EVALUATION: No falls on my shift VSS * Consult Note - Braulio Caballero RRT - 11/07/2014 11:58 PM EDT Patient is a 59 year old male with a history of heavy drinking who fell down the stairs 2 days ago.+LOC. He was drunk at the time. He woke up and continued to drink without seeking medical attention. Today he went to see his district fire management officer who urged him to seek medical [...] able to follow advance commands and perform PulmonaryMechanics with him and if he has a sub standard cough, will consider Aerobika for him. * Plan of Care - Nelson Berry RN - 11/07/2014 6:58 PM EDT Problem: General Plan of Care Goal: Plan of Care Review Outcome: Ongoing (Interventions Implemented as Appropriate) 11/07/1434711/07/14799 Plan of Care Review Plan of Care Outcome Status ongoing (interventions implemented as appropriate) -- Progress progress towards functional goals is fair -- Coping/Psychosocial Response Interventions Plan of Care Reviewed with -- patient Goal: Individualization and Mutuality Outcome: Ongoing (Interventions Implemented as Appropriate) 11/07/14347 Individualization Individualize the Plan of Care: comfort Goal: Fall Prevention-Safe Patient Handling Outcome: Ongoing (Interventions Implemented as Appropriate) 11/07/1479911/07/14 1400 11/07/14 1800 Musculoskeletal Interventions Activity/Level of [...] Reduction -- -- bed alarm;environmental modification;fall reduction programmaintained;lighting adjusted for task/safety;low bed;nonskid shoes/slippers when out of bed;room near unit station;supervised activity Goal: Infection Control Outcome: Ongoing (Interventions Implemented as Appropriate) 11/07/1479911/07/14 1800 Coping/Psychosocial Response Interventions Counseling calming techniques [...] TLS cleared, cervical collar remains intact, AAS every2 hours, Pt scoring 4-8, medicated per scale appropriately. Manual C-Spine for all collar changes. PLAN MOVING FORWARD: Mobilize while medicated for pain and continue with current plan of care. INDIVIDUALIZED FALL PREVENTION: Assistance: 2 person Supervision: RN, Hands-on, Manual C-Spine for all collar changes. Surveillance: SpO2, Tele CPG GOAL OUTCOME EVALUATION: Pt is progressing toward outcomes. * Plan of Care - Amish Lee RN - 11/07/2014 4:23 AM EDT Problem: General Plan of Care Goal: Plan of Care Review Outcome: Ongoing (Interventions Implemented as Appropriate) 11/07/14 0348 Plan of Care Review Plan of Care [...] frequently assessed and addressed with fair outcomes. Daphnie buenoon. Collar care done. Spine precautions maintained. Multi vitamin IVF administered. Pt urinates to urinal. I&O closely monitored. PLAN MOVING FORWARD: monitor VS, Neuro status, ativan assessment scale, safety and comfort INDIVIDUALIZED FALL PREVENTION: Assistance: Turn self; Supervision: All activities Surveillance: bed alarm on all the time; telemetry; continuous pulse ox; resuscitator/mask/suctionsat bedside; frequent rounding maintained. CPG GOAL OUTCOME EVALUATION: all interventions applied appropriately; continue to monitor. Goal: Individualization and Mutuality Outcome: Ongoing (Interventions Implemented as Appropriate) 11/07/14347 Individualization Individualize the Plan of Care: comfort Goal: Fall Prevention-Safe Patient Handling Outcome: Ongoing (Interventions Implemented as Appropriate) 11/06/14210911/07/14347 Musculoskeletal Interventions Activity/Level of Assistance bed rest [...] Reduction bed alarm;fall reduction program maintained;lighting adjusted fortask/safety;low bed;safety lamp keeper;supervised activity -- Goal: Infection Control Outcome: Ongoing [...] probe site changed Intervention: Wound Healing Promotion 11/06/14 5633 Skin Interventions Wound Healing Promotion adequate fluids [...] promoted;care clustered;lighting decreased;quiet environment promoted;reality orientation provided;relaxation techniques promoted;sleep/wake cycle promoted;social interaction promoted Intervention: Sensation Impairment [...] Absence of Trauma/Injury/Falls making progress toward outcome * Consult Note - Juancho Mcgee MD - 11/06/2014 8:03 PM EDT NEUROSURGERY CONSULT H&P CC: IPH HPI: Asked by Dr Pena to see Derrick Hobson, a 59 y.o. male for evaluation of IPH. Patient is a 59 year old male with a history of heavy drinking who fell down the stairs 2 days ago.+LOC. He was drunk at the time. He woke up and continued to drink without seeking medical attention. 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 The density in theright frontal lobe is oddly shaped for an [...] Associated Diagnoses Orde r Schedule Referral to Spine Center Outpatient Referral Routine Pain of cervical spine Ordered: 11/12/2014 documented as of this encounter Procedures Procedure Name Priority Date/Time Associated Diagnosis Comments E COMMERCE DEVELOPER SCAN 11/20/2014 12:00 AM EDT DUPLEX FOR DVT BILAT LEGS Routine 11/17/2014 7:21 AM EDT XR FINGER MINIMUM 2 VIEWS Routine 11/16/2014 2:38 PM EDT XR WRIST 2 VIEW Routine 11/16/2014 2:37 PM EDT EKG 12-LEAD Routine 11/12/2014 10:51 AM EDT T wave inversion in EKG CARDIAC ENZYMES ([facility]) Routine 11/12/2014 3:48 AM EDT CARDIAC ENZYMES ([facility]) Routine 11/11/2014 3:58 PM EDT CARDIAC ENZYMES ([facility]) Routine 11/11/2014 9:27 AM EDT EKG 12-LEAD STAT 11/11/2014 6:13 AM EDT Trauma BASIC METABOLIC PANEL Routine 11/11/2014 3:49 AM EDT DUPLEX FOR DVT BILAT LEGS Routine 11/10/2014 12:39 PM EDT MRI BRAIN WWO CONTRAST (GENERIC) Routine 11/08/2014 12:45 PM EDT HEPATIC FUNCTION PANEL Routine 11/08/2014 3:38 AM EDT EKG 12-LEAD STAT 11/07/2014 10:[address] segment depression RAPID DRUG SCREEN W/O CONFIRMATION, URINE STAT 11/07/2014 8:45 AM EDT URINALYSIS WITH REFLEX CULTURE Routine 11/07/2014 8:45 AM EDT LACTATE, WHOLE BLOOD STAT 11/07/2014 6:49 AM EDT HEMOGRAM STAT 11/07/2014 3:55 AM EDT DIFFERENTIAL, AUTOMATED STAT 11/07/2014 3:55 AM EDT CBC (WITH DIFF) STAT 11/07/2014 3:55 AM EDT ETHANOL LEVEL Routine 11/07/2014 3:55 AM EDT BASIC METABOLIC PANEL STAT 11/07/2014 3:55 AM EDT REQUEST FOR 2ND READ CT SPINE Routine 11/06/2014 8:25 PM EDT REQUEST FOR 2ND READ CT CHEST ABDOMEN PELVIS Routine 11/06/2014 8:18 PM EDT ABO/RH TYPING STAT 11/06/2014 7:37 PM EDT ANTIBODY SCREEN STAT 11/06/2014 7:37 PM EDT TYPE AND SCREEN ([facility]/YASMANI) STAT 11/06/2014 7:37 PM EDT L-LACTATE2 WHOLE BLOOD Routine 11/06/2014 7:32 PM EDT XR CHEST AP AND PELVIS AP TRAUMA STAT 11/06/2014 7:31 PM EDT HEMOGRAM STAT 11/06/2014 7:30 PM EDT DIFFERENTIAL, AUTOMATED STAT 11/06/2014 7:30 PM EDT GOLD TUBE HOLD STAT 11/06/2014 7:30 PM EDT APTT STAT 11/06/2014 7:30 PM EDT PROTHROMBIN TIME STAT 11/06/2014 7:30 PM EDT CBC (WITH DIFF) STAT 11/06/2014 7:30 PM EDT ETHANOL LEVEL STAT 11/06/2014 7:30 PM EDT BASIC METABOLIC PANEL STAT 11/06/2014 7:30 PM EDT documented in this encounter Results * CT [...] AM Dorian Pena MD IMG CT ORDERABLES * XR Hand Diagnostic Minimum 3 Views [...] thoughdistance to the fracture fragment has decreased. Dorian Pena MD IMG DX ORDERABLES * XR Chest Routine PA & Lateral [...] findings, Juan Jones at 12/16/2014 2:07 PM Dorian Pena MD IMG DX ORDERABLES * SCAN DOC: E COMMERCE DEVELOPER (11/20/2014 12:00 AM EDT) Anatomical Region Laterality Modality Other Scanning Provider MEDIA MGR SCAN EXT O RDR/RSLT * Duplex Study for DVT, Bilat legs (11/17/2014 7:21 AM EDT) VB Text Report Department: Vascular Surgery Lab Patient: [id number] (DERRICK HOBSON) CPT Code: 19078 ICD-9: 959.8; 793.0; 807.00 Referring Physician: DORIAN PENA Indication: ??s/p fall down stairs, abnormal brain CT and rib fracture, unable to anticoagulate, ? DVT ICD9 Diagnosis Code: 959.8 RIGHT: Patent common femoral vein and popliteal vein with spontaneous, respirophasic Doppler waveforms that respond normally to augmentation maneuvers. The common femoral vein, saphenofemoral junction, femoral vein through the thigh and popliteal vein are fully compressible. Patent posterior tibial and peroneal veins with no evidence of thrombus. LEFT: Patent common femoral vein and popliteal vein with spontaneous, respirophasic Doppler waveforms that respond normally to augmentation maneuvers. The common femoral vein, saphenofemoral junction, femoral vein through the thigh and popliteal vein are fully compressible. Patent posterior tibial and peroneal veins with no evidence of thrombus. Interpretation: RIGHT: No evidence of lower extremity deep venous thrombosis. No significant change compared to previous exam done on 11/10/2014. LEFT: No evidence of lower extremity deep venous thrombosis. No significant change compared to previous exam on 11/10/2014. Electronically Signed by: MAY ROMERO on 2014-11-22 05:53:24 PM [facility] VB Text Report End of Report [facility] 11/17/2014 7:21 AM EDT Dorian Pena MD VASCULAR ORDERABLES [facility] * (ABNORMAL) XR Finger Minimum 2 Views (11/16/2014 2:38 PM EDT) Anatomical Region Laterality Modality Hand N/A Radiographic Shanna ging 11/16/2014 2:38 PM EDT Impressions 11/16/2014 3:39 PM EDT IMPRESSION: 1. Intra-articular small finger DIP joint [...] chronic posttraumatic change, osteochondroma, or other etiology. Narrative 11/16/2014 3:39 PM EDT EXAMINATION: FINGER MIN 2 VIEWS/LEFT CLINICAL HISTORY: Left first digit with pain and swelling, ? fx TECHNIQUE: A frontal view of the left hand, oblique and lateral views of the left small finger. COMPARISON: Left wrist of 11/16/2014. FINDINGS: Soft tissue swelling is identified. There [...] with overlying soft tissue swelling, partially characterized. Resulting Agency Comment Unexpected Finding Procedure Note Tres English MD - 11/16/2014 EXAMINATION: FINGER MIN 2 VIEWS/LEFT CLINICAL HISTORY: Left first digit with pain and swelling, ? fx TECHNIQUE: A frontal view of the left hand, oblique and lateral views ofthe left small finger. COMPARISON: Left wrist of 11/16/2014. FINDINGS: Soft tissue swelling is identified. There is an intra-articular fractureof the DIP joint of the small finger. There is mild displacement of fracturefragments and mild foreshortening. There is joint space loss. Scattered degenerative, and likely remote posttraumatic change of thephalanges, most notable proximal phalanx of the ring finger. Sclerosis andirregularities are noted of the distal metadiaphysis of the radius. Irregularities arenoted of the distal ulna with overlying soft tissue swelling, partiallycharacterized. IMPRESSION IMPRESSION: 1. Intra-articular small finger DIP joint fracture with milddisplacement. 2. Unexpected finding: There is transverse sclerosis of the distal radiusand irregularities of the distal ulna, most consistent with distal ulna andradius fractures. 3. Irregularities which appear chronic of the phalanges, most conspicuousof the proximal phalanx of the ring finger. This could represent chronicposttraumatic change, osteochondroma, or other etiology. Dorian Pena MD IMG DX ORDERABLES * XR wrist 2 view (11/16/2014 2:37 PM EDT) Anatomical Region Laterality Modality Hand, Wrist N/A Radiographic Shanna ging 11/16/2014 2:37 PM EDT Impressions 11/16/2014 3:41 PM EDT IMPRESSION: 1. Distal radius fracture, with compaction, and transverse orientation. 2. Irregularities of the ulnar styloid, likely representing fracture with overlying soft tissue swelling. 3. Subtle lucencies of the scaphoid, normal nutrient vasculature versus nondisplaced fracture. Narrative 11/16/2014 3:41 PM EDT EXAMINATION: WRIST 2 VIEWS/LEFT CLINICAL HISTORY: s/p fall in bathroom, pain in wrist with ROM and swelling TECHNIQUE: Frontal, oblique, lateral, and scaphoid specific views of the left wrist. COMPARISON: Left small finger views obtained of the same day. FINDINGS: There is transverse sclerosis and irregularities with malalignment of the distal radius metadiaphysis, consistent with a compacted metadiaphyseal fracture. There is additional irregularity of the ulnar styloid process likely representing additional fracture with overlying soft tissue swelling. Subtle lucencies within the scaphoid may represent nutrient vasculature versus nondisplaced fracture. Procedure Note Tres English MD - 11/16/2014 EXAMINATION: WRIST 2 VIEWS/LEFT CLINICAL HISTORY: s/p fall in bathroom, pain in wrist with ROM andswelling TECHNIQUE: Frontal, oblique, lateral, and scaphoid specific views of theleft wrist. COMPARISON: Left small finger views obtained of the same day. FINDINGS: There is transverse sclerosis and irregularities with malalignment of thedistal radius metadiaphysis, consistent with a compacted metadiaphyseal fracture.There is additional irregularity of the ulnar styloid process likelyrepresenting additional fracture with overlying soft tissue swelling. Subtle lucencieswithin the scaphoid may represent nutrient vasculature versus nondisplacedfracture. IMPRESSION IMPRESSION: 1. Distal radius fracture, with compaction, and transverse orientation. 2. Irregularities of the ulnar styloid, likely representing fracturewith overlying soft tissue swelling. 3. Subtle lucencies of the scaphoid, normal nutrient vasculature versus nondisplaced fracture. Dorian Pena MD IMG DX ORDERABLES * EKG 12 Lead (11/12/2014 10:51 AM EDT) Ventricular rate 58 BPM MUSE SYSTEM Atrial Rate 58 BPM MUSE SYSTEM P-R Interval 174 ms MUSE SYSTEM QRS Duration 110 ms MUSE SYSTEM Q-T Interval 440 ms MUSE SYSTEM QTC Calculated (Bezet) 431 ms MUSE SYSTEM Calculated P Douglas 44 degrees MUSE SYSTEM Calculated R Douglas 19 degrees MUSE SYSTEM Calculated T Douglas 43 degrees MUSE SYSTEM INTERPRETATION Sinus bradycardia Nonspecific T wave abnormality Abnormal ECG When compared with ECG of 11-NOV-2014 06:13, T wave inversion no longer evident in Anterolateral leads Confirmed by Edwardo Clement ([id number]) on 11/12/2014 7:05:55 PM MUSE SYSTEM 11/12/2014 10:5 1 AM EDT 11/12/2014 7:05 PM EDT Dorian Pena MD ECG ORDERABLES Performing Organization Address City/State/[facility] Co de Phone Number MUSE SYSTEM * (ABNORMAL) Cardiac Enzymes (11/12/2014 3:48 AM EDT) Troponin-T <0.03 <=0.03 ng/mL CERNER [employer]NIUM Comment: 0.03 ng/mL: Represents the 99th percentile upper reference limit for normals. >0.03 ng/mL: Elevated cardiac troponin T level indicative of myocardial damage. Diagnosis of acute, evolving or recent VA requires a typical rise and gradual fall of cTnT with at least ONE of the following: a) Ischemic symptoms b) Development of pathologic Q waves on the ECG c) ECG changes indicative of eschemia (S-T segment elevation/depression) d) Coronary artery intervention Serial bloods should be obtained for testing on admission, at 6 to 9 hrs and again at 12 to 24 hrs if earlier samples are negative and the clinical index of suspicion is high. Reference: [Myocardial infarction redefined? a consensus document of the Joint Society of Cardiology/[place] [employer] Committee for the redefinition of myocardial infarction. ??Journal of the [place] College [employer] 2000; 36: 959-969] Creatine Kinase 293(H) 0 - 200 unit/L CERFINN BlueWareLEOIUM Blood specimen (specimen) 11/12/2014 3:48 AM EDT 11/12/2014 4:19 AM EDT Narrative Resulting Agency Comment Spec In Lab Dorian Pena MD CHEMISTRY ORDERABLES Performing Organization Address City/State/[facility] de Phone Number RETA MILLS * (ABNORMAL) Cardiac Enzymes (11/11/2014 3:58 PM EDT) Troponin-T <0.03 <=0.03 ng/mL [facility] Comment: 0.03 ng/mL: Represents the 99th percentile upper reference limit for normals. >0.03 ng/mL: Elevated cardiac troponin T level indicative of myocardial damage. Diagnosis of acute, evolving or recent VA requires a typical rise and gradual fall of cTnT with at least ONE of the following: a) Ischemic symptoms b) Development of pathologic Q waves on the ECG c) ECG changes indicative of eschemia (S-T segment elevation/depression) d) Coronary artery intervention Serial bloods should be obtained for testing on admission, at 6 to 9 hrs and again at 12 to 24 hrs if earlier samples are negative and the clinical index of suspicion is high. Reference: [Myocardial infarction redefined? a consensus document of the Joint Society of Cardiology/[place] [employer] Committee for the redefinition of myocardial infarction. ??Journal of the [place] [employer]iology 2000; 36: 959-969] Creatine Kinase 390(H) 0 - 200 unit/L [facility] Blood specimen (specimen) 11/11/2014 3:58 PM EDT 11/11/2014 4:02 PM EDT Narrative Resulting Agency Comment Spec In Lab Dorian Pena MD CHEMISTRY ORDERABLES Performing Organization Address [facility] de Phone Number RETA MILLS * (ABNORMAL) Cardiac Enzymes (11/11/2014 9:27 AM EDT) Troponin-T <0.03 <=0.03 ng/mL [facility] Comment: 0.03 ng/mL: Represents the 99th percentile upper reference limit for normals. >0.03 ng/mL: Elevated cardiac troponin T level indicative of myocardial damage. Diagnosis of acute, evolving or recent VA requires a typical rise and gradual fall of cTnT with at least ONE of the following: a) Ischemic symptoms b) Development of pathologic Q waves on the ECG c) ECG changes indicative of eschemia (S-T segment elevation/depression) d) Coronary artery intervention Serial bloods should be obtained for testing on admission, at 6 to 9 hrs and again at 12 to 24 hrs if earlier samples are negative and the clinical index of suspicion is high. Reference: [Myocardial infarction redefined? a consensus document of the Joint Society of Cardiology/[place] [employer] Committee for the redefinition of myocardial infarction. ??Journal of the [place] College [employer]iology 2000; 36: 959-969] Creatine Kinase 413(H) 0 - 200 unit/L [employer] Blood specimen (specimen) 11/11/2014 9:27 AM EDT 11/11/2014 9:41 AM EDT Narrative Resulting Agency Comment Spec In Lab Dorian Pena MD CHEMISTRY ORDERABLES Performing Organization Address [facility] de Phone Number [facility] nCrypted Cloud * EKG 12 Lead (11/11/2014 6:13 AM EDT) Ventricular rate 60 BPM MUSE SYSTEM Atrial Rate 60 BPM MUSE SYSTEM P-R Interval 138 ms MUSE SYSTEM QRS Duration 104 ms MUSE SYSTEM Q-T Interval 430 ms MUSE SYSTEM QTC Calculated (Bezet) 430 ms MUSE SYSTEM Calculated P Douglas 39 degrees MUSE SYSTEM Calculated R Douglas 28 degrees MUSE SYSTEM Calculated T Douglas -89 degrees MUSE SYSTEM INTERPRETATION Normal sinus rhythm T wave abnormality, consider inferior ischemia T wave abnormality, consider anterolateral ischemia Abnormal ECG When compared with ECG of 07-NOV-2014 10:02, T wave inversion now evident in Inferior leads T wave inversion now evident in Anterior leads QT has shortened Confirmed by MD PHYLLIS, KARYN ([id number]) on 11/11/2014 8:37:36 AM MUSE SYSTEM 11/11/2014 6:13 AM EDT 11/11/2014 8:37 AM EDT Dorian Pena MD ECG ORDERABLES Performing Organization Address [facility] Co de Phone Number MUSE SYSTEM * (ABNORMAL) Basic Metabolic Panel (non-fasting) (11/11/2014 3:49 AM EDT) Glucose 95 65 - 199 mg/dL [email or web address] Comment:Diabetes: >=200 mg/d L plus symptoms Blood Urea Nitrogen 11 10 - 20 mg/dL CERNER MILLENNIUM Creatinine 0.79(L) 0.80 - 1.50 mg/dL CERNER MILLENNIUM Comment: Please note that the pediatric reference intervals supplied above were not validated at [facility]. Results from pediatric patients should be interpreted in conjunction to the patient's age, height and muscle mass. Sodium 137 135 - 145 mmol/L CERNER MILLENNIUM Potassium 3.7 3.5 - 5.0 mmol/L CERNER MILLENNIUM Comment: Please note: ??Patients with WBC >100,000 may have falsely elevated Potassium levels. ??For accurate Potassium quantification in these patients send serum separator tube (gold top) for subsequent determinations. ??Contact the Clinical Chemistry Laboratory if there are any questions. Chloride 96(L) 98 - 107 mmol/L CERNER MILLENNIUM Carbon Dioxide 28 22 - 31 mmol/L CERNER MILLENNIUM Anion Gap 13 5 - 15 mmol/L CERNER MILLENNIUM Calcium 9.3 8.5 - 10.5 mg/dL CERNER MILLENNIUM Est Glomerular Filtration Rate >60 >=60 CERNER MILLENNIUM Comment: This estimated GFR (eGFR) value was calculated using the MDRD equation which has been validated on patients between the ages of 18 and 70. The MDRD should not be used to assess kidney function in patients < 18 years of age or in patients with extremes of body mass, or in patients with acute kidney failure. This value should be multiplied by 1.2 for patients. For further information please copy and paste the following links into your internet browser. [email or web address] Blood specimen (specimen) 11/11/2014 3:49 AM EDT 11/11/2014 4:19 AM EDT Narrative Resulting Agency Comment Spec In Lab Dorian Pena MD CHEMISTRY ORDERABLES [facility] LINA * Duplex Study for DVT, Bilat legs (11/10/2014 12:39 PM EDT) VB Text Report Department: Vascular Surgery Lab Patient: [id number] (DERRICK HOBSON) CPT Code: 76816 ICD-9: 432.9; 959.8 Referring Physician: DORIAN PENA Indication: ??59 year old male s/p fall down stairs with confusion and suspected IPH vs. DVA vs. mass on RIGHT frontal lobe, prolonged bedrest, ? DVT ICD9 Diagnosis Code: 959.8, 432.9 RIGHT: Patent common femoral vein and popliteal vein with spontaneous, respirophasic Doppler waveforms that respond normally to augmentation maneuvers. The common femoral vein, saphenofemoral junction, femoral vein through the thigh and popliteal vein are fully compressible. Patent posterior tibial and peroneal veins with no evidence of thrombus. LEFT: Patent common femoral vein and popliteal vein with spontaneous, respirophasic Doppler waveforms that respond normally to augmentation maneuvers. The common femoral vein, saphenofemoral junction, femoral vein through the thigh and popliteal vein are fully compressible. Patent posterior tibial and peroneal veins with no evidence of thrombus. Interpretation: RIGHT: ??No evidence of lower extremity deep venous thrombosis. LEFT: ??No evidence of lower extremity deep venous thrombosis. Comparison: ??No previous study in our vascular lab database for comparison. Electronically Signed by: ESTRADA ARELLANO on 2014-11-13 09:23:07 AM VASCUBASE VB Text Report End of Report VASCUBASE 11/10/2014 12:3 9 PM EDT Dorian Pena MD VASCULAR ORDERABLES VASCU[facility] * MRI Brain With/WO Contrast (11/08/2014 12:45 PM EDT) Anatomical Region Laterality Modality Head Magnetic Resonan ce 11/08/2014 12:4 5 PM EDT Impressions 11/08/2014 1:00 PM EDT IMPRESSION: Incomplete exam as the patient was unable to tolerate the study. There does not appear to be flow in the lesion on T1-weighted images which are use for the presence of blood products rather than a venous anomaly. Narrative 11/08/2014 1:00 PM EDT EXAMINATION: MR BRAIN W/WO CONTRAST CLINICAL HISTORY: BRAIN W/WO CONTRAST, ?DVA TECHNIQUE: MR the brain performed without the use of intravenous contrast. Exam was unable to be completed as patient could not tolerate further scanning. COMPARISON: CT 11/06/2014 FINDINGS: The linear area of hypodensity seen on the prior CT corresponds to a hypointense area on FLAIR and diffusion images. No clear flow void is seen in this area on T1-weighted images, and there appears to be mixed signal intensity on T1. There is minimal if any surrounding edema. Patchy areas of T2 prolongation are present throughout the white matter most relaxers, a nonspecific finding typically attributed to small vessel ischemic change. There is no evidence of infarct on diffusion-weighted images. Procedure Note Chino Parham MD - 11/08/2014 EXAMINATION: MR BRAIN W/WO CONTRAST CLINICAL HISTORY: BRAIN W/WO CONTRAST, ?DVA TECHNIQUE: MR the brain performed without the use of intravenous contrast.Exam was unable to be completed as patient could not tolerate furtherscanning. COMPARISON: CT 11/06/2014 FINDINGS: The linear area of hypodensity seen on the prior CT correspondsto a hypointense area on FLAIR and diffusion images. No clear flow void is seenin this area on T1-weighted images, and there appears to be mixed signalintensity on T1. There is minimal if any surrounding edema. Patchy areas of T2 prolongation are present throughout the white matter most relaxers, a nonspecific finding typically attributed to small vessel ischemic change.There is no evidence of infarct on diffusion-weighted images. IMPRESSION IMPRESSION: Incomplete exam as the patient was unable to tolerate the study. Theredoes not appear to be flow in the lesion on T1-weighted images which are use forthe presence of blood products rather than a venous anomaly. Dorian Pena MD IMG MRI ORDERABLES * Hepatic Function Panel (11/08/2014 3:38 AM EDT) Protein, Total 6.8 6.1 - 8.0 gm/dL CERNER MILLENNIUM Albumin 3.6 3.2 - 5.2 gm/dL CERNER MILLENNIUM Aspartate Aminotransferase 28 0 - 39 unit/L CERNER MILLENNIUM Alanine Aminotransferase 26 0 - 55 unit/L CERNER MILLENNIUM Alkaline Phosphatase 60 40 - 120 unit/L CERNER MILLENNIUM Bilirubin, Total 0.9 0.2 - 1.3 mg/dL CERNER MILLENNIUM Bilirubin, Direct 0.2 0.0 - 0.3 mg/dL CERNER MILLENNIUM Blood specimen (specimen) 11/08/2014 3:38 AM EDT 11/08/2014 4:02 AM EDT Narrative Resulting Agency Comment Spec In Lab Dorian Pena MD CHEMISTRY ORDERABLES Performing Organization Address [facility] de Phone Number CERNER [employer] * EKG 12 Lead (11/07/2014 10:02 AM EDT) Ventricular rate 85 BPM MUSE SYSTEM Atrial Rate 85 BPM MUSE SYSTEM P-R Interval 160 ms MUSE SYSTEM QRS Duration 104 ms MUSE SYSTEM Q-T Interval 410 ms MUSE SYSTEM QTC Calculated (Bezet) 487 ms MUSE SYSTEM Calculated P Douglas 27 degrees MUSE SYSTEM Calculated R Douglas 3 degrees MUSE SYSTEM Calculated T Douglas 68 degrees MUSE SYSTEM INTERPRETATION Normal sinus rhythm Nonspecific T wave abnormality Prolonged QT Abnormal ECG No previous ECGs available Confirmed by MD Ha Douglas ([id number]) on 11/07/2014 8:00:21 PM MUSE SYSTEM 11/07/2014 10:0 2 AM EDT 11/07/2014 8:00 PM EDT Dorian Pena MD ECG ORDERABLES Performing Organization Address [facility] de Phone Number MUSE SYSTEM * (ABNORMAL) Urinalysis with microscopic (11/07/2014 8:45 AM EDT) Glucose, Urine Dipstick 50(A) Negative mg/dL CERNER MILLENNIUM Protein, Urine Dipstick Negative Negative mg/dL CERNER MILLENNIUM Bilirubin, Urine Dipstick Negative Negative mg/dL CERNER MILLENNIUM Comment: Clinical correlation required for positive Urine Bilirubin results as false positive may occur with some drugs and drug related products. If a false positive is suspected a serum total bilirubin should be considered if clinically indicated. Urobilinogen, Urine Dipstick Normal Normal mg/dL CERNER MILLENNIUM pH, Urn (dipstick) 7.0 5.0 - 8.0 CERNER MILLENNIUM Blood, Urine Dipstick Negative Negative mg/dL CERNER MILLENNIUM Ketone, Urine Dipstick Negative Negative mg/dL CERNER MILLENNIUM Nitrite, Urine Dipstick Negative Negative CERNER MILLENNIUM Leukocytes, Urine Dipstick Negative Negative mcL CERNER MILLENNIUM Appearance, Urine Dipstick Clear Clear CERNER MILLENNIUM Specific [place] Urine Automated 1.011 1.002 - 1.030 CERNER MILLENNIUM Color, Urine Dipstick Straw Yellow CERNER MILLENNIUM RBC, Urine <1 0 - 3 /HPF CERNER MILLENNIUM WBC, Urine <1 0 - 3 /HPF CERNER MILLENNIUM Urine specimen (specimen) 11/07/2014 8:45 AM EDT 11/07/2014 8:52 AM EDT Narrative Resulting Agency Comment Spec In Lab Dorian Pena MD URINE ORDERABLES CERNER MILLENNIUM * (ABNORMAL) Rapid Drug Screen, Urine (11/07/2014 8:45 AM EDT) CHRISTINE Marijuana Metabolites Screen None Detected None Detected CERNER MILLENNIUM Comment: The marijuana metabolites screen detects the THC Metabolite (20-uxv-1-carboxy-? 9 -THC) at concentrations >50 ng/mL. Qualitative Drug screens are reported as ? None Detected? or ? Presumptive Positive? as the results are not routinely confirmed by highly-specific methods. As with any screen occasional false positive results from cross-reacting substances can occur. Not for Medico-Legal Purposes. Phencyclidine Screen, Urine None Detected None Detected CERNER MILLENNIUM Comment: The phencyclidine screen detects phencyclidine at concentrations >25 ng/mL. Qualitative Drug screens are reported as ? None Detected? or ? Presumptive Positive? as the results are not routinely confirmed by highly-specific methods. As with any screen occasional false positive results from cross-reacting substances can occur. Not for Medico-Legal Purposes. CHRISTINE Cocaine Metabolites Screen None Detected None Detected CERNER MILLENNIUM Comment: The cocaine metabolites screen detects benzoylecgonine (Cocaine Metabolite) at concentrations >150 ng/mL. Qualitative Drug screens are reported as ? None Detected? or ? Presumptive Positive? as the results are not routinely confirmed by highly-specific methods. As with any screen occasional false positive results from cross-reacting substances can occur. Not for Medico-Legal Purposes. Methamphetamines Screen, Urine None Detected None Detected CERNER MILLENNIUM Comment: The methamphetamine screen detects d-methamphetamine at concentrations >500 ng/mL. Qualitative Drug screens are reported as ? None Detected? or ? Presumptive Positive? as the results are not routinely confirmed by highly-specific methods. As with any screen occasional false positive results from cross-reacting substances can occur. Not for Medico-Legal Purposes. CHRISTINE Opiates Screen None Detected None Detected CERNER MILLENNIUM Comment: The opiates screen detects opiates at a concentration >100 ng/mL and oxymorphone >250 ng/mL. Qualitative Drug screens are reported as ? None Detected? or ? Presumptive Positive? as the results are not routinely confirmed by highly-specific methods. As with any screen occasional false positive results from cross-reacting substances can occur. Not for Medico-Legal Purposes. CHRISTINE Amphetamines Screen None Detected None Detected CERNER MILLENNIUM Comment: The amphetamine screen detects d-amphetamine at concentrations >500 ng/mL. Qualitative Drug screens are reported as ? None Detected? or ? Presumptive Positive? as the results are not routinely confirmed by highly-specific methods. As with any screen occasional false positive results from cross-reacting substances can occur. Not for Medico-Legal Purposes. CHRISTINE Benzodiazepines Screen Presumptive Pos(A) None Detected CERNER MILLENNIUM Comment: The benzodiazepines screen detects benzodiazepines at concentrations >150 ng/mL. Not all benzodiazepines cross-react equally with antibody used in this screen. Due to the low dosage of clonazepam, false negatives may be obtained due to low concentration of clonazepam metabolites. Qualitative Drug screens are reported as ? None Detected? or ? Presumptive Positive? as the results are not routinely confirmed by highly-specific methods. As with any screen occasional false positive results from cross-reacting substances can occur. Not for Medico-Legal Purposes. CHRISTINE Tricyclics Screen None Detected None Detected CERNER MILLENNIUM Comment: The tricyclics screen detects tricyclic antidepressants at concentrations >300 ng/mL. Not all tricyclics cross-react equally with the antibody used in this screen. Qualitative Drug screens are reported as ? None Detected? or ? Presumptive Positive? as the results are not routinely confirmed by highly-specific methods. As with any screen occasional false positive results from cross-reacting substances can occur. Not for Medico-Legal Purposes. CHRISTINE Methadone Screen None Detected None Detected CERNER MILLENNIUM Comment: The methadone screen detects methadone at concentrations >200 ng/mL. Qualitative Drug screens are reported as ? None Detected? or ? Presumptive Positive? as the results are not routinely confirmed by highly-specific methods. As with any screen occasional false positive results from cross-reacting substances can occur. Not for Medico-Legal Purposes. CHRISTINE Barbiturates Screen None Detected None Detected CERNER MILLENNIUM Comment: The barbiturates screen detects barbiturate at concentrations >200 ng/mL. Note: Not all barbiturates cross-react equally with antibody used in this screen. Qualitative Drug screens are reported as ? None Detected? or ? Presumptive Positive? as the results are not routinely confirmed by highly-specific methods. As with any screen occasional false positive results from cross-reacting substances can occur. Not for Medico-Legal Purposes. CHRISTINE Oxycodone Srceen Presumptive Pos(A) None Detected CERNER MILLENNIUM Comment: The oxycodone screen detects oxycodone at concentrations >100 ng/mL and oxymorphone >250 ng/ml. Qualitative Drug screens are reported as ? None Detected? or ? Presumptive Positive? as the results are not routinely confirmed by highly-specific methods. As with any screen occasional false positive results from cross-reacting substances can occur. Not for Medico-Legal Purposes. Propoxyphene Screen, Urine None Detected None Detected CERNER MILLENNIUM Comment: The propoxyphene screen detects propoxyphene at concentrations >300 ng/mL. Qualitative Drug screens are reported as ? None Detected? or ? Presumptive Positive? as the results are not routinely confirmed by highly-specific methods. As with any screen occasional false positive results from cross-reacting substances can occur. Not for Medico-Legal Purposes. CHRISTINE Buprenorphine Screen None Detected None Detected CERNER MILLENNIUM Comment: The buprenorphine screen detects buprenorphine at concentrations >10 ng/mL. Qualitative Drug screens are reported as ? None Detected? or ? Presumptive Positive? as the results are not routinely confirmed by highly-specific methods. As with any screen occasional false positive results from cross-reacting substances can occur. Not for Medico-Legal Purposes. Urine specimen (specimen) 11/07/2014 8:45 AM EDT 11/07/2014 8:52 AM EDT Narrative Resulting Agency Comment Spec In Lab Dorian Pena MD URINE ORDERABLES CERFINN QUINTANILLAENNIUM * Lactate, whole blood, send to lab (11/07/2014 6:49 AM EDT) Lactate WB 1.7 0.5 - 2.2 mmol/L CERNER MILLENNIUM Blood specimen (specimen) 11/07/2014 6:49 AM EDT 11/07/2014 7:42 AM EDT Narrative Resulting Agency Comment Spec In Lab Dorian Pena MD CHEMISTRY ORDERABLES Performing Organization Address [facility] Co de Phone Number CERNER MILLENNIUM * (ABNORMAL) Differential, Automated (11/07/2014 3:55 AM EDT) Neutrophil % 71.3 % CERNER MILLENNIUM Neutrophil Absolute 6.60(H) 1.50 - 6.30 x10(3)/mc L CERNER MILLENNIUM Lymph % 20.1 % CERNER MILLENNIUM Lymphocytes Abs 1.9 1.0 - 3.6 x10(3)/mc L CERNER MILLENNIUM Monocyte % 7.3 % CERNER MILLENNIUM Monocyte Abs 0.7 0.2 - 1.0 x10(3)/mc L CERNER MILLENNIUM Eos % 1.0 % CERNER MILLENNIUM Eosinophils Abs 0.1 0.0 - 0.5 x10(3)/mc L CERNER MILLENNIUM Basophil % 0.2 % CERNER MILLENNIUM Baso Absolute 0.0 0.0 - 0.2 x10(3)/mc L CERNER MILLENNIUM Immature Gran % 0.10 % CERN ER MILLENNIUM Comment: Immature granulocytes(IG's)percentage and absolute count will include metamyelocytes, myelocytes, and promyelocytes. Blood smears from CBCs yielding IG's will be scanned manually for concordance. If this scan disagrees with the automated IG or if promyelocytes are noted, a manual differential will be performed. Immature Gran Absolute 0.01 0.00 - 0.05 x10(3)/mc L CERNER MILLENNIUM Blood specimen (specimen) 11/07/2014 3:55 AM EDT 11/07/2014 4:36 AM EDT Narrative Resulting Agency Comment Spec In Lab Dorian Pena MD HEMATOLOGY ORDERABLE S Performing Organization Address [facility] Co de Phone Number CERNER MILLENNIUM * (ABNORMAL) Hemogram (11/07/2014 3:55 AM EDT) White Blood Cell 9.3 4.0 - 10.0 x10(3)/mc L CERNER MILLENNIUM Red Blood Cell 4.49(L) 4.63 - 6.08 x10(6)/mc L CERNER MILLENNIUM Hemoglobin 15.1 13.7 - 17.5 gm/dL CERNER MILLENNIUM Hematocrit 44.1 40.0 - 51.0 % CERNER MILLENNIUM Mean Cell Volume 98.2(H) 79.0 - 92.0 fL CERNER MILLENNIUM Mean Cell Hemoglobin 33.6(H) 25.6 - 32.2 pg CERNER MILLENNIUM Mean Cell Hemoglobin Concentration 34.2 32.0 - 36.5 gm/dL CERNER MILLENNIUM Platelet 192 145 - 370 x10(3)/mc L CERNER MILLENNIUM RDW Standard Deviation 44.3 35.0 - 46.0 fL CERNER MILLENNIUM RDW coefficient of variation 12.5 10.9 - 14.4 % CERNER MILLENNIUM Mean Platelet Volume 10.3 9.0 - 12.0 fL CERNER MILLENNIUM Blood specimen (specimen) 11/07/2014 3:55 AM EDT 11/07/2014 4:36 AM EDT Narrative Resulting Agency Comment Spec In Lab Dorian Pena MD HEMATOLOGY ORDERABLE S Performing Organization Address City/[facility]/ZIP Co de Phone Number CERNER MILLENNIUM * Ethanol Level (11/07/2014 3:55 AM EDT) Ethanol <100 mg/L CERNER MILLENNIUM Comment: Greater than 800 mg/L (0.08%) should be considered intoxicated. 3400 to 4500 mg/L (0.34 - 0.45%) is considered severe intoxication. Greater than 5500 mg/L (0.55%) is usually fatal. Blood specimen (specimen) 11/07/2014 3:55 AM EDT 11/07/2014 4:36 AM EDT Narrative Resulting Agency Comment Spec In Lab Dorian Pena MD CHEMISTRY ORDERABLES CERNER MILLENNIUM * (ABNORMAL) Basic Metabolic Panel (non-fasting) (11/07/2014 3:55 AM EDT) Glucose 134 65 - 199 mg/dL CERNER MILLENNIUM Comment:Diabetes: >=200 mg/d L plus symptoms Blood Urea Nitrogen 5(L) 10 - 20 mg/dL CERNER MILLENNIUM Creatinine 0.59(L) 0.80 - 1.50 mg/dL CERNER MILLENNIUM Comment: Please note that the pediatric reference intervals supplied above were not validated at [facility]. Results from pediatric patients should be interpreted in conjunction to the patient's age, height and muscle mass. Sodium 140 135 - 145 mmol/L CERNER MILLENNIUM Potassium 3.6 3.5 - 5.0 mmol/L CERNER MILLENNIUM Comment: Please note: ??Patients with WBC >100,000 may have falsely elevated Potassium levels. ??For accurate Potassium quantification in these patients send serum separator tube (gold top) for subsequent determinations. ??Contact the Clinical Chemistry Laboratory if there are any questions. Chloride 97(L) 98 - 107 mmol/L CERNER MILLENNIUM Carbon Dioxide 30 22 - 31 mmol/L CERNER MILLENNIUM Anion Gap 13 5 - 15 mmol/L CERNER MILLENNIUM Calcium 8.5 8.5 - 10.5 mg/dL CERNER MILLENNIUM Est Glomerular Filtration Rate >60 >=60 CERNER MILLENNIUM Comment: This estimated GFR (eGFR) value was calculated using the MDRD equation which has been validated on patients between the ages of 18 and 70. The MDRD should not be used to assess kidney function in patients < 18 years of age or in patients with extremes of body mass, or in patients with acute kidney failure. This value should be multiplied by 1.2 for patients. For further information please copy and paste the following links into your internet browser. [email or web address] Blood specimen (specimen) 11/07/2014 3:55 AM EDT 11/07/2014 4:36 AM EDT Narrative Resulting Agency Comment Spec In Lab Dorian Pena MD CHEMISTRY ORDERABLES RETA [employer] * Request For 2nd Read CT Spine (11/06/2014 8:25 PM EDT) Anatomical Region Laterality Modality C-spine, T-spine, L-spine Other 11/06/2014 8:25 PM EDT Impressions 11/06/2014 8:59 [...] Images are limited by lack of small [id number] axial images. Alignment of the thoracic spine [...] Images are limited by lack of small [id number] axialimages. Alignment of the thoracic spine appears [...] No cervical, thoracic, or lumbar spine fracture. Dorian Pena MD IMG OUTSIDE INTERPRE TATION ORDERABLES * Request For 2nd Read CT Chest Abdomen Pelvis (11/06/2014 8:18 PM EDT) Anatomical Region Laterality Modality Chest, Abdomen, Pelvis Other 11/06/2014 8:18 PM EDT Impressions 11/07/2014 8:49 AM EDT IMPRESSION: 1. ??Mildly displaced right sixth anterolateral rib fracture. 2. ??Small right effusion. 3. ??Ectasia of the descending thoracic aorta up to 4 cm with tapering at the level of the aortic arch. No dissection or mediastinal hematoma identified. 4. ??No evidence of acute traumatic injury to the abdomen or pelvis. This report was reviewed by DELMY MCKEON MD at 11/07/2014 8:44 AM Film and interpretation reviewed by the attending Narrative 11/07/2014 8:49 AM EDT EXAMINATION: OUTSIDE CT CHEST/ABD/PELVIS CLINICAL HISTORY: trauma alert, 2nd read head c-spine chest abd pelvis TLS spine; What Modality is the exam? CT Scan; Body Part (please add comments as necessary): head; I believe a reinterpretation of this exam may alter care of Patient. Yes TECHNIQUE: This is a reinterpretation of an outside study originally obtained [facility]. A CT of the chest/abdomen/pelvis was obtained using IV contrast. COMPARISON: None FINDINGS: Chest: There is bibasilar dependent atelectasis. [...] is atherosclerotic calcification of the abdominal aorta. Procedure Note Delmy Mckeon MD - 11/07/2014 EXAMINATION: OUTSIDE CT CHEST/ABD/PELVIS CLINICAL HISTORY: trauma alert, 2nd read head c-spine chest abd pelvisTLS spine; What Modality is the exam? CT Scan; Body Part (please add commentsas necessary): head; I believe a reinterpretation of this exam may alter careof Patient. Yes TECHNIQUE: This is a reinterpretation of an outside study originallyobtained [facility]. A CT of the chest/abdomen/pelvis was obtained usingIV contrast. COMPARISON: None FINDINGS: Chest: There is bibasilar dependent atelectasis. A right-sided small effusion isnoted tracking into the major fissure. No pneumothorax seen. A small rightbasilar calcified granuloma is present measuring 8 mm in size. No suspiciousparenchymal abnormality. Large airways are clear. Small amount of right paratrachealair seen on series 2, image 8 likely represents a small trachealdiverticulum. Visualized thyroid is unremarkable. There is ectasia of the ascending aorta measuring up to 4 cm, which tapersat the level of the arch. Though somewhat limited due to contrast bolustiming, however, no dissection flap identified. Periaortic fat is unremarkable.No mediastinal hematoma identified. There is mild cardiomegaly. Nopericardial effusion. There is moderate coronary artery calcification present.Collapse of the esophagus precludes assessment. No mediastinal or axillary adenopathy. Calcified small subcarinal lymphnodes noted. There is a minimally displaced anterolateral right sixth rib fracture. Abdomen/pelvis: No parenchymal lesions identified the liver. The spleen, pancreas, andadrenals are normal. The gallbladder contains multiple cholesterol gallstoneswithout pericholecystic fluid identified. No free intraperitoneal fluid or air. The stomach contains layering fluid. Unopacified small bowel isnondilated. The colon demonstrates a moderate amount of stool seen in the cecum/ascendingas well as redundancy of the sigmoid. No inguinal or mesenteric adenopathy. No renal laceration. No hydronephrosis identified. The bladder is mildly distended with urine. Prostatic calcifications are identified. No diastases of the SI joints or pubic symphysis. There are multilevel degenerative changes of the spine. Mild retrolisthesis is seen involvingL5 and S1. Multilevel degenerative changes of the spine are identified. No abdominal aortic aneurysm. No retroperitoneal hematoma. There is atherosclerotic calcification of the abdominal aorta. IMPRESSION IMPRESSION: 1. Mildly displaced right sixth anterolateral rib fracture. 2. Small right effusion. 3. Ectasia of the descending thoracic aorta up to 4 cm with tapering atthe level of the aortic arch. No dissection or mediastinal hematomaidentified. 4. No evidence of acute traumatic injury to the abdomen or pelvis. This report was reviewed by DELMY MCKEON MD at 11/07/2014 8:44 AM Film and interpretation reviewed by the attending Dorian Pena MD IMG OUTSIDE INTERPRE TATION ORDERABLES * Antibody screen (11/06/2014 7:37 PM EDT) Ab Screen Interp Negative Triptelligent Expires at [id number] on: 11/09/2014 [email or web address] Blood specimen (specimen) 11/06/2014 7:37 PM EDT 11/06/2014 7:37 PM EDT Narrative Resulting Agency Comment Spec In Lab Dorian Pena MD BLOOD BANK LAB ORDER GRIS Performing Organization Address [facility] Co de Phone Number RETA MILLS * ABO/Rh Typing (11/06/2014 7:37 PM EDT) ABORH Type A Pos RETA MILLS Blood specimen (specimen) 11/06/2014 7:37 PM EDT 11/06/2014 7:37 PM EDT Narrative Resulting Agency Comment Spec In Lab Dorian Pena MD BLOOD BANK LAB ORDER GRIS Performing Organization Address [facility] de Phone Number RETA MILLS * (ABNORMAL) L-Lactate2 Whole Blood (11/06/2014 7:32 PM EDT) Lactate WB 2.4(H) mmol/L RETA MILLS Blood specimen (specimen) 11/06/2014 7:32 PM EDT 11/06/2014 7:32 PM EDT Emergency Dept CHEMISTRY ORDERABLE S Performing Organization Address [facility] de Phone Number RETA MILLS * XR chest AP and pelvis AP (11/06/2014 7:31 PM EDT) Anatomical Region Laterality Modality N/A Radiographic Shanna ging 11/06/2014 7:31 PM EDT Narrative 11/06/2014 8:12 [...] dislocation is seen. Normal alignment Impression 1. ??No fracture or dislocation 2. ??Right basal process representing any combination of effusion, atelectasis or consolidation. Procedure Note Rachel Borrego MD - 11/06/2014 EXAMINATION: AP CHEST AND AP PELVIS CLINICAL HISTORY: trauma- ICH; Body Part (please add comments asnecessary): Chest, Pelvis TECHNIQUE: COMPARISON: None FINDINGS: Chest: A right basal process obscures the right diaphragm and right CP angle.The remaining lungs and left pleural space are clear without evidence of pneumothorax or pleural effusion. The heart, ayush, and pulmonaryvascularity are within normal limits. No pneumoperitoneum is seen and osseous structuresare normal. Pelvis: The distended bladder opacified by excreted contrast obscures evaluationof the sacrum. Bones: No fracture is present. Joints: No dislocation is seen. Normal alignment Impression 1. No fracture or dislocation 2. Right basal process representing any combination of effusion,atelectasis or consolidation. Dorian Pena MD IMG DX ORDERABLES * Gold Tube HOLD (11/06/2014 7:30 PM EDT) [facility] Gold Hold Sample in lab. RETA SOCORROLEOIUM Blood specimen (specimen) Venous Draw / Unknown 11/06/2014 7:30 PM EDT 11/06/2014 7:48 PM EDT Dorian Pena MD CHEMISTRY ORDERABLES RETA SOCORROENNIUM * (ABNORMAL) Differential, Automated (11/06/2014 7:30 PM EDT) Pathologist [facility] Neutrophil % 62.7 % CERNER MILLENNIUM Neutrophil Absolute 6.31(H) 1.50 - 6.30 x10(3)/mc L CERNER MILLENNIUM Lymph % 27.7 % CERNER MILLENNIUM Lymphocytes Abs 2.8 1.0 - 3.6 x10(3)/mc L CERNER MILLENNIUM Monocyte % 7.8 % CERNER MILLENNIUM Monocyte Abs 0.8 0.2 - 1.0 x10(3)/mc L CERNER MILLENNIUM Eos % 1.0 % CERNER MILLENNIUM Eosinophils Abs 0.1 0.0 - 0.5 x10(3)/mc L CERNER MILLENNIUM Basophil % 0.5 % CERNER MILLENNIUM Baso Absolute 0.0 0.0 - 0.2 x10(3)/mc L CERNER MILLENNIUM Immature Gran % 0.30 % CERN ER MILLENNIUM Comment: Immature granulocytes(IG's)percentage and absolute count will include metamyelocytes, myelocytes, and promyelocytes. Blood smears from CBCs yielding IG's will be scanned manually for concordance. If this scan disagrees with the automated IG or if promyelocytes are noted, a manual differential will be performed. Immature Gran Absolute 0.03 0.00 - 0.05 x10(3)/mc L CERNER MILLENNIUM Blood specimen (specimen) 11/06/2014 7:30 PM EDT 11/06/2014 7:44 PM EDT Narrative Resulting Agency Comment Spec In Lab Dorian Pena MD HEMATOLOGY ORDERABLE S CERNER MILLENNIUM * (ABNORMAL) Hemogram (11/06/2014 7:30 PM EDT) White Blood Cell 10.1(H) 4.0 - 10.0 x10(3)/mc L CERNER MILLENNIUM Red Blood Cell 4.72 4.63 - 6.08 x10(6)/mc L CERNER MILLENNIUM Hemoglobin 16.4 13.7 - 17.5 gm/dL CERNER MILLENNIUM Hematocrit 45.9 40.0 - 51.0 % CERNER MILLENNIUM Mean Cell Volume 97.2(H) 79.0 - 92.0 fL CERNER MILLENNIUM Mean Cell Hemoglobin 34.7(H) 25.6 - 32.2 pg CERNER MILLENNIUM Mean Cell Hemoglobin Concentration 35.7 32.0 - 36.5 gm/dL CERNER MILLENNIUM Platelet 223 145 - 370 x10(3)/mc L CERNER MILLENNIUM RDW Standard Deviation 43.8 35.0 - 46.0 fL [facility] RDW coefficient of variation 12.3 10.9 - 14.4 % [facility] Mean Platelet Volume 10.1 9.0 - 12.0 fL [facility] Blood specimen (specimen) 11/06/2014 7:30 PM EDT 11/06/2014 7:44 PM EDT Narrative Resulting Agency Comment Spec In Lab Dorian Pena MD HEMATOLOGY ORDERABLE S Performing Organization Address [facility] de Phone Number [facility] * Ethanol Level (11/06/2014 7:30 PM EDT) Ethanol 1,313 mg/L [facility] Comment: Greater than 800 mg/L (0.08%) should be considered intoxicated. 3400 to 4500 mg/L (0.34 - 0.45%) is considered severe intoxication. Greater than 5500 mg/L (0.55%) is usually fatal. Blood specimen (specimen) 11/06/2014 7:30 PM EDT 11/06/2014 7:44 PM EDT Narrative Resulting Agency Comment Spec In Lab May Dillard MD CHEMISTRY ORDERABLES Performing Organization Address [facility] Phone Number [facility] * APTT (11/06/2014 7:30 PM EDT) Partial Thromboplastin Time 29 25 - 35 sec [facility] Comment: Recommended therapeutic PTT range for full dose unfractionated heparin is 80-114 seconds. Blood specimen (specimen) 11/06/2014 7:30 PM EDT 11/06/2014 7:44 PM EDT Narrative Resulting Agency Comment Spec In Lab May Dillard MD HEMATOLOGY ORDERABLE S Performing Organization Address [facility] de Phone Number [facility] * Prothrombin Time (11/06/2014 7:30 PM EDT) Prothrombin Time 13.2 12.0 - 15.0 sec [facility] Comment: Transfusion Committee Guidelines: INR less than 2.0, PTT less than OR equal to 43.5 seconds, or Fibrinogen greater than or equal to 100 mg/dl indicate adequate procoagulant activity for hemostasis in patients without underlying bleeding disorders. International Normalization Ratio 1.0 0.9 - 1.1 CERNER MILLENNIUM Blood specimen (specimen) 11/06/2014 7:30 PM EDT 11/06/2014 7:44 PM EDT Narrative Resulting Agency Comment Spec In Lab May Dillard MD HEMATOLOGY ORDERABLE S CERNER MILLENNIUM * (ABNORMAL) Basic Metabolic Panel (non-fasting) (11/06/2014 7:30 PM EDT) Glucose 108 65 - 199 mg/dL CERNER MILLENNIUM Comment:Diabetes: >=200 mg/d L plus symptoms Blood Urea Nitrogen 4(L) 10 - 20 mg/dL CERNER MILLENNIUM Creatinine 0.69(L) 0.80 - 1.50 mg/dL CERNER MILLENNIUM Comment: Please note that the pediatric reference intervals supplied above were not validated at [facility]. Results from pediatric patients should be interpreted in conjunction to the patient's age, height and muscle mass. Sodium 144 135 - 145 mmol/L CERNER MILLENNIUM Potassium 3.7 3.5 - 5.0 mmol/L CERNER MILLENNIUM Comment: Please note: ??Patients with WBC >100,000 may have falsely elevated Potassium levels. ??For accurate Potassium quantification in these patients send serum separator tube (gold top) for subsequent determinations. ??Contact the Clinical Chemistry Laboratory if there are any questions. Chloride 101 98 - 107 mmol/L CERNER MILLENNIUM Carbon Dioxide 29 22 - 31 mmol/L CERNER MILLENNIUM Anion Gap 14 5 - 15 mmol/L CERNER MILLENNIUM Calcium 8.9 8.5 - 10.5 mg/dL CERNER MILLENNIUM Est Glomerular Filtration Rate >60 >=60 CERNER MILLENNIUM Comment: This estimated GFR (eGFR) value was calculated using the MDRD equation which has been validated on patients between the ages of 18 and 70. The MDRD should not be used to assess kidney function in patients < 18 years of age or in patients with extremes of body mass, or in patients with acute kidney failure. This value should be multiplied by 1.2 for patients. For further information please copy and paste the following links into your internet browser. [email or web address] Blood specimen (specimen) 11/06/2014 7:30 PM EDT 11/06/2014 7:44 PM EDT Narrative Resulting Agency Comment Spec In Lab May Dillard MD [facility]MISTRY ORDERABLES [facility] documented in this encounter Visit Diagnoses Diagnosis ST segment depression Trauma Injury, other and unspecified, unspecified site Abnormal brain CT Nonspecific (abnormal) findings on radiological and other examination of skull and head T wave inversion in EKG Nonspecific abnormal electrocardiogram (ECG) (EKG) Pain of cervical spine Cervicalgia Ulnar fracture, unspecified laterality, closed, initial encounter Abnormal brain CT Nonspecific (abnormal) findings on radiological and other examination of skull and head Trauma Injury, other and unspecified, unspecified site Ulnar fracture, unspecified laterality, closed, initial encounter Trauma Injury, other and unspecified, unspecified site documented in this encounter Administered Medications Inactive Administered Medications - up to 3 most recent administrations Medication Order MAR Action Action Date Dose Rate Site acetaminophen (TYLENOL) tablet 1,000 mg 1,000 mg, Oral, EVERY 6 HOURS PRN, Starting on Sun11/06/14 at 2132, Until 11/07/14 at 0621, Pain, for MODERATE pain (4-6), Do not exceed 4,000 mg in 24 hours, Routine Given 11/06/2014 11:08 PM EDT 1,000 mg acetaminophen (TYLENOL) tablet 1,000 mg 1,000 mg, Oral, EVERY 6 HOURS, First dose (after last modification) on 11/07/14 at 0800, Until Discontinued, Do not exceed 4,000 mg in 24 hours, Routine Given 11/07/2014 8:27 AM EDT 1,000 mg acetaminophen (TYLENOL) tablet 650 mg 650 mg, Oral, EVERY 6 HOURS, [facility] 1400, Until Discontinued, Do not exceed 4,000 mg in 24 hours, Routine Given 11/19/2014 7:04 AM EDT 650 mg Given 11/19/2014 3:16 AM EDT 650 mg Given 11/18/2014 8:27 PM EDT 650 mg beclomethasone (QVAR) 40 mcg/actuation inhaler 2 puff 2 puff, Inhalation, 2 TIMES DAILY, First dose on Sun11/07/14 at 1300, Until Discontinued, Shake well; Rinse mouth after administration. Given 11/19/2014 9:21 AM EDT 2 puffs Given 11/18/2014 8:04 AM EDT 2 puffs Given 11/17/2014 8:05 PM EDT 2 puffs bisacodyl (DULCOLAX) suppository 10 mg 10 mg, Rectal, DAILY PRN, Starting on Sun11/11/14 at 1817, Until Kaur 11/19/14 at 1343, Constipation, Routine Given 11/11/2014 6:30 PM EDT 10 mg buPROPion (WELLBUTRIN SR) SR tablet 150 mg 150 mg, Oral, 2 TIMES DAILY, First dose on Sun11/07/14 at 1300, Until Discontinued, Routine Given 11/19/2014 9:21 AM EDT 150 mg Given 11/18/2014 8:28 PM EDT 150 mg Given 11/18/2014 8:04 AM EDT 150 mg chlorhexidine (PERIDEX) 0.12 % oral solution 15 mL 15 mL, Oral, EVERY 12 HOURS, First dose on Sun11/06/14 at 2200, Until Discontinued, To brush teeth, Routine Given 11/07/2014 10:23 AM EDT 15 mLs Given 11/06/2014 11:05 PM EDT 15 mLs citalopram (CeleXA) tablet 20 mg 20 mg, Oral, DAILY, First dose on Sun11/07/14 at 1300, Until Discontinued, Routine Given 11/19/2014 9:21 AM EDT 20 mg Given 11/18/2014 8:04 AM EDT 20 mg Given 11/17/2014 8:27 AM EDT 20 mg famotidine (PEPCID) tablet 20 mg 20 mg, Oral, 2 TIMES DAILY, First dose on Sun11/06/14 at 2200, Until Discontinued, If unable to take PO, may give IV, Routine Given 11/07/2014 8:30 AM EDT 20 mg Given 11/06/2014 11:05 PM EDT 20 mg fentaNYL 50mcg/mL injection 50 mcg, Intravenous, PER TRAUMA ANALGESIC PROTOCOL, Starting on Sun11/06/14 at 1922, Until Sun11/06/14 at 2132, Pain, Every 5-15 minutes PRN, STAT Given 11/06/2014 8:33 PM EDT 50 mcg Given 11/06/2014 7:48 PM EDT 50 mcg Given 11/06/2014 7:38 PM EDT 50 mcg folic acid (FOLVITE) tablet 1,000 mcg 1,000 mcg (1 mg), Oral, DAILY, 3 doses, First dose on Sun11/07/14 at 0900, Last dose on Sun11/09/14 at 0900, Routine Given 11/09/2014 10:27 AM EDT 1,000 m cg Given 11/08/2014 8:48 AM EDT 1,000 mcg Given 11/07/2014 8:30 AM EDT 1,000 mcg gabapentin (NEURONTIN) capsule 900 mg 900 mg, Oral, 3 TIMES DAILY, First dose on Sun11/07/14 at 1300, Until Discontinued, Routine Given 11/19/2014 9:21 AM EDT 900 mg Given 11/18/2014 8:28 PM EDT 900 mg Given 11/18/2014 2:13 PM EDT 900 mg HYDROmorphone (DILAUDID) injection 0.4 mg 0.4 mg, Intravenous, EVERY 2 HOURS PRN, Starting on Sun11/06/14 at 2039, Until Sun11/07/14 at 0620, Pain, Routine Given 11/07/2014 12:43 AM EDT 0.4 mg Given 11/06/2014 9:25 PM EDT 0.4 mg HYDROmorphone (DILAUDID) injection 0.4 mg 0.4 mg, Intravenous, EVERY 2 HOURS PRN, Starting on Sun11/07/14 at 0620, Until Sun11/10/14 at 0635, Pain, BTP not relieved by oxycodone, Routine Given 11/09/2014 4:51 PM EDT 0.4 mg Given 11/08/2014 3:55 AM EDT 0.4 mg Given 11/08/2014 12:17 AM EDT 0.4 mg ipratropium-albuterol (DUONEB) 0.5 mg-3 mg(2.5 mg base)/3 mL nebulizer solution 3 mL 3 mL, Nebulization, EVERY 4 HOURS, First dose on Sun11/08/14 at 0800, Until Discontinued, Routine Given 11/19/2014 9:21 AM EDT 3 mLs Given 11/19/2014 6:39 AM EDT 3 mLs Given 11/18/2014 5:22 PM EDT 3 mLs labetalol (NORMODYNE,TRANDATE) injection 10 mg 10 mg, Intravenous, EVERY 2 HOURS PRN, Starting on 11/07/14 at 0246, Until 11/14/14 at 0552, High Blood Pressure, Please give for SBP > 160; hold for HR < 60, Routine Given 11/10/2014 12: 45 AM EDT 10 mg Given 11/09/2014 9:42 PM EDT 10 mg Given 11/09/2014 3:02 AM EDT 10 mg labetalol (NORMODYNE,TRANDATE) injection 10 mg 10 mg, Intravenous, ONCE, 1 dose, On Sun11/09/14 at 0245, STAT Given 11/09/2014 2:37 AM EDT 10 mg lidocaine (LIDODERM) 5 %(700 mg/patch) patch 1 patch 1 patch, Transdermal, DAILY, First dose on 11/07/14 at 0900, Until Discontinued, Apply patch(es) to R chest wall for 12 hours, and then remove for 12 hours, Routine Given 11/18/2014 8:05 AM EDT 1 patch Given 11/17/2014 8:29 AM EDT 1 patch Given 11/16/2014 8:24 AM EDT 1 patch lidocaine (LIDODERM) patch REMOVAL Transdermal, NIGHTLY, First dose on 11/07/14 at 2100, Until Discontinued, Remove Lidocaine Patch Given 11/09/2014 9:00 PM EDT 1 patch Given 11/08/2014 9:00 PM EDT 1 patch Given 11/07/2014 9:00 PM EDT 1 patch lisinopril (PRINIVIL;ZESTRIL) tablet 10 mg 10 mg, Oral, DAILY, First dose on Sun11/10/14 at 0900, Until Discontinued, Routine Given 11/19/2014 9:21 AM EDT 10 mg Given 11/18/2014 8:03 AM EDT 10 mg Given 11/17/2014 8:27 AM EDT 10 mg LORazepam (ATIVAN) injection 1 mg 1 mg, Intravenous, ONCE, 1 dose, On Sun11/06/14 at 2000, STAT Given 11/06/2014 8:04 PM EDT 1 mg LORazepam (ATIVAN) injection 1 mg 1 mg, Intravenous, ONCE, 1 dose, On Sun11/06/14 at 2018, STAT Given 11/06/2014 8:18 PM EDT 1 mg LORazepam (ATIVAN) injection 1 mg 1 mg, Intravenous, ONCE, 1 dose, On Sun11/08/14 at 1130, For MRI, Routine Given 11/08/2014 11:52 AM EDT 1 mg LORazepam (ATIVAN) injection 1-3 mg 1-3 mg, Intravenous, EVERY 4 HOURS [...] or IV or IM., Routine Given 11/10/2014 5:52 AM EDT 3 mg Given 11/10/2014 2:03 AM EDT 3 mg Given 11/09/2014 5:30 AM EDT 3 mg LORazepam (ATIVAN) tablet 0.5 mg 0.5 mg, Oral, EVERY 6 HOURS SCHEDULED, First dose (after last modification) on 11/14/14 at 0615, Until Discontinued, Routine Given 11/15/2014 12:5 3 AM EDT 0.5 mg Given 11/14/2014 5:03 PM EDT 0.5 mg Given 11/14/2014 11:27 AM EDT 0.5 mg LORazepam (ATIVAN) tablet 0.5 mg 0.5 mg, Oral, EVERY 8 HOURS, First dose (after last modification) on 11/15/14 at 0900, Until Discontinued, Routine Given 11/15/2014 4:49 PM EDT 0.5 mg Given 11/15/2014 9:00 AM EDT 0.5 mg LORazepam (ATIVAN) tablet 0.5 mg 0.5 mg, Oral, 2 TIMES DAILY, First dose (after last modification) on 11/16/14 at 0900, Until Discontinued, Routine Given 11/17/2014 8:05 PM EDT 0.5 mg Given 11/17/2014 8:27 AM EDT 0.5 mg Given 11/16/2014 8:16 PM EDT 0.5 mg LORazepam (ATIVAN) tablet 0.5 mg 0.5 mg, Oral, NIGHTLY, First dose (after last modification) on Sun11/18/14 at 2100, Until Discontinued, Routine Given 11/18/2014 8:27 PM EDT 0.5 mg LORazepam (ATIVAN) tablet 1 mg 1 mg, Oral, EVERY 8 HOURS, First dose on 11/07/14 at 0730, Until Discontinued, Routine Given 11/07/2014 8:28 AM EDT 1 mg LORazepam (ATIVAN) tablet 1 mg 1 mg, Oral, EVERY 6 HOURS, First dose (after last modification) on 11/07/14 at 1430, Until Discontinued, Routine Given 11/08/2014 2:17 AM EDT 1 mg Given 11/07/2014 7:51 PM EDT 1 mg Given 11/07/2014 2:29 PM EDT 1 mg LORazepam (ATIVAN) tablet 1 mg 1 mg, Oral, EVERY 8 HOURS, First dose (after last modification) on 11/08/14 at 1030, Until Discontinued, Routine Given 11/10/2014 1:33 AM EDT 1 mg Given 11/09/2014 5:39 PM EDT 1 mg Given 11/09/2014 10:28 AM EDT 1 mg LORazepam (ATIVAN) tablet 1 mg 1 mg, Oral, ONCE, 1 dose, On Sun11/09/14 at 0245, Routine Given 11/09/2014 2:43 AM EDT 1 mg LORazepam (ATIVAN) tablet 1 mg 1 mg, Oral, EVERY 6 HOURS SCHEDULED, First dose (after last modification) on Sun11/10/14 at 1200, Until Discontinued, Routine Given 11/14/2014 1:09 AM EDT 1 mg Given 11/13/2014 5:12 PM EDT 1 mg Given 11/13/2014 11:26 AM EDT 1 mg LORazepam (ATIVAN) tablet 1-3 mg 1-3 mg, Oral, EVERY 4 HOURS PRN, Starting on Sun11/06/14 at 2132, Until Sun11/12/14 at 0646, alcohol/benzodiazepine withdrawal- uncomplicated, Per assessment [...] PO or IV or IM., Routine Given 11/12/2014 2 :28 AM EDT 1 mg Given 11/10/2014 6:13 PM EDT 1 mg Given 11/10/2014 9:57 AM EDT 1 mg LORazepam (ATIVAN) tablet 2 mg 2 mg, Oral, EVERY 8 HOURS, 6 doses, First dose on Sun11/06/14 at 2200, Last dose on Sun11/08/14 at 1400, May give IV if unable to take PO. May give IM if no IV access., Routine Given 11/07/2014 5:23 AM EDT 2 mg Given 11/06/2014 10:01 PM EDT 2 mg LORazepam (ATIVAN) tablet 2 mg 2 mg, Oral, ONCE, 1 dose, On Sun11/06/14 at 2019, Routine Given 11/06/2014 8:28 PM EDT 2 mg magnesium sulfate 2 g in sterile water 50 mL 2 g, Intravenous, ONCE, 1 dose, On Sun11/06/14 at 2200, Administer over 120 Minutes Given 11/07/2014 12:11 AM EDT 2 g 25 mL/hr melatonin tablet 3 mg 3 mg, Oral, ONCE, 1 dose, On Sun11/09/14 at 0100, STAT Given 11/09/2014 12:48 AM EDT 3 mg miconazole (MICOTIN) 2 % powder Topical (Top), 2 TIMES DAILY, First dose on Sun11/16/14 at 1000, Until Discontinued Given 11/19/2014 11:33 AM EDT Given 11/18/2014 11:13 PM EDT Given 11/18/2014 10:43 AM EDT multivitamin (THERAGRAN) tablet 1 tablet 1 tablet, Oral, DAILY, First dose on Sun11/10/14 at 1200, Until Discontinued Given 11/19/2014 9:21 AM EDT 1 tablet Given 11/18/2014 8:03 AM EDT 1 tablet Given 11/17/2014 8:27 AM EDT 1 tablet nicotine (NICODERM CQ) 21 mg/24 hr patch 21 mg 21 mg, Transdermal, DAILY, First dose on Sun11/07/14 at 0900, Until Discontinued, Routine Given 11/18/2014 8:04 AM EDT 21 mg Given 11/17/2014 8:29 AM EDT 21 mg Given 11/16/2014 8:23 AM EDT 21 mg nicotine (NICODERM CQ) patch REMOVAL Transdermal, DAILY, First dose on Sun11/08/14 at 0900, Until Discontinued, Remove Nicotine Patch Given 11/17/2014 9:00 AM EDT 1 patch Given 11/16/2014 9:00 AM EDT 1 patch Given 11/13/2014 9:00 AM EDT 1 patch oxyCODONE (ROXICODONE) immediate release tablet 10 mg 10 mg, Oral, EVERY 4 HOURS PRN, Starting on Sun11/06/14 at 2132, Until Sun11/07/14 at 0620, Pain, Moderate pain (4-6), May repeat 5 mg in 60 minutes if pain not relieved., Routine Given 11/06/2014 11:08 PM EDT 1 0 mg oxyCODONE (ROXICODONE) immediate release tablet 5-10 mg 5-10 mg, Oral, EVERY 4 HOURS PRN, Starting on Sun11/07/14 at 0619, Until 11/08/14 at 1407, Pain, Give 5mg for pain 0-5; Give 10mg for pain 6-10, Routine Given 11/08/2014 10:16 AM EDT 10 mg Given 11/07/2014 12:45 PM EDT 10 mg oxyCODONE (ROXICODONE) immediate release tablet 5-15 mg 5-15 mg, Oral, EVERY 4 HOURS PRN, Starting on 11/08/14 at 1407, Until Kaur 11/19/14 at 1343, Pain, give 5mg for pain 0-4; give 10mg for pain 5-7; give 15mg for pain 8-10, Routine Given 11/19/2014 7:31 AM EDT 1 5 mg Given 11/19/2014 3:15 AM EDT 15 mg Given 11/18/2014 11:03 PM EDT 15 mg polyethylene glycol (MIRALAX) packet 17 g 17 g, Oral, DAILY PRN, Starting on 11/07/14 at 1241, Until Sun11/11/14 at 0628, Constipation, Administer if needed per patient's routine or if no bowel movement within 48 hours to achieve: 1) One bowel movement at least every 48 hours, AND 2) Without straining. If multiple bowel medications ordered, consider polyethylene glycol(MIRALAX) first., Routine Given 11/10/2014 2:13 PM EDT 17 g polyethylene glycol (MIRALAX) packet 17 g 17 g, Oral, DAILY, First dose (after last modification) on Sun11/11/14 at 0900, Until Discontinued, Administer if needed per patient's routine or if no bowel movement within 48 hours to achieve: 1) One bowel movement at least every 48 hours, AND 2) Without straining. If multiple bowel medications ordered, consider polyethylene glycol(MIRALAX) first., Routine Given 11/12/2014 9:41 AM EDT 17 g Given 11/11/2014 8:37 AM EDT 17 g polyethylene glycol (MIRALAX) packet 17 g 17 g, Oral, 2 TIMES DAILY, First dose (after last modification) on 11/15/14 at 0900, Until Discontinued, Administer if needed per patient's routine or if no bowel movement within 48 hours to achieve: 1) One bowel movement at least every 48 hours, AND 2) Without straining. If multiple bowel medications ordered, consider polyethylene glycol(MIRALAX) first., Routine Given 11/18/2014 8:05 AM EDT 17 g Given 11/16/2014 8:10 AM EDT 17 g potassium chloride (K-DUR/KLOR-CON) extended release tablet 40 mEq 40 mEq, Oral, ONCE, 1 dose, On Sun11/11/14 at 0645, 20 mEq tablet may be dissolved in water for administration, Routine Given 11/11/2014 7:06 AM EDT 40 mEq propranolol (INDERAL) tablet 80 mg 80 mg, Oral, 4 TIMES DAILY, First dose on Sun11/07/14 at 1300, Until Discontinued, Hold for SBP <90, HR <60, Routine Given 11/18/2014 2:15 PM EDT 80 mg Given 11/17/2014 8:28 AM EDT 80 mg Given 11/16/2014 12:11 PM EDT 80 mg senna-docusate (PERICOLACE) 8.6-50 mg per tablet 2 tablet 2 tablet, Oral, 2 TIMES DAILY, First dose on Sun11/07/14 at 1300, Until Discontinued, Routine Given 11/10/2014 9:07 PM EDT 2 tablets Given 11/09/2014 8:53 PM EDT 2 tablets Given 11/09/2014 10:28 AM EDT 2 tablets senna-docusate (PERICOLACE) 8.6-50 mg per tablet 4 tablet 4 tablet, Oral, 2 TIMES DAILY, First dose (after last modification) on Sun11/11/14 at 0900, Until Discontinued, Routine Given 11/19/2014 9:22 AM EDT 2 tablets Given 11/16/2014 8:13 AM EDT 2 tablets Given 11/12/2014 9:42 AM EDT 4 tablets sodium chloride 0.9 % flush 5 mL 5 mL, Intravenous, 2 TIMES DAILY, First dose on Sun11/06/14 at 2200, Until Discontinued, Routine Given 11/16/2014 8:20 AM EDT 5 mLs Given 11/15/2014 8:33 PM EDT 5 mLs Given 11/15/2014 9:15 AM EDT 5 mLs sodium chloride 0.9% 1,000 mL with multivitamin adult 10 mL, folic acid 1 mg, thiamine 100 mg infusion at 100 mL/hr, Intravenous, ONCE, 1 dose, On Sun11/06/14 at 2100 New Bag 11/06/2014 9:52 PM EDT 100 mL/hr thiamine tablet 50 mg 50 mg, Oral, DAILY, 3 doses, First dose on 11/07/14 at 0900, Last dose on 11/09/14 at 0900, Routine Given 11/09/2014 10:29 AM EDT 50 mg Given 11/08/2014 8:47 AM EDT 50 mg Given 11/07/2014 10:17 AM EDT 50 mg traZODone (DESYREL) tablet 100 mg 100 mg, Oral, NIGHTLY, First dose on Tu11/10/14 at 2100, Until Discontinued, Routine Given 11/11/2014 9:15 PM E DT 100 mg Given 11/10/2014 9:58 PM EDT 100 mg traZODone (DESYREL) tablet 150 mg 150 mg, Oral, NIGHTLY, First dose (after last modification) on Kaur 11/12/14 at 2100, Until Discontinued, Routine Given 11/18/2014 8:28 PM EDT 150 mg Given 11/17/2014 8:05 PM EDT 150 mg Given 11/16/2014 8:15 PM EDT 150 mg documented in this encounter Active and Recently Administered Medications Times are shown in EDT. Scheduled Medication Order 11/17/2014 11/18/2014 11/19/2014 acetaminophen (TYLENOL) tablet 650 mg 650 mg, Oral, EVERY 6 HOURS, First dose (after last modification) on 11/07/14 at 1400, Until Discontinued, Do not exceed 4,000 mg in 24 hours, Routine 0245 (Not Given - Provider: Lea Grijalva RN - Reason: Patient/family refused)825 (Given - Provider: Sherri Spear RN)141 (Given - Provider: Sherri Spear, ABEL)2004 (Given - Provider: Lea Grijalva RN) 124 (Given - Provider: Lea Grijalva RN)08 (Given - Provider: Sherri Spear RN)141 (Given - Provider: Sherri Spear RN)2026 (Given - Provider: Carolyn Howard, ABEL) 031 (Given - Provider: Carolyn Howard RN)07 (Given - Provider: Carolyn Howard RN) beclomethasone (QVAR) 40 mcg/actuation inhaler 2 puff (CANCELED) 2 puff, Inhalation, 2 TIMES DAILY, First dose on 11/07/14 at 1300, Until Discontinued, Shake well; Rinse mouth after administration. 0834 (Not Given - Provider: Sherri Spear RN - Reason: Patient/family refused)2004 (Given - Provider: Lea Grijalva RN) 08 (Given - Provider: Sherri Spear RN)2099 (Not Given - Provider: Carolyn Howard RN - Reason: Patient/family refused) 920 (Given - Provider: Sherri Spear RN) buPROPion (WELLBUTRIN SR) SR tablet 150 mg (CANCELED) 150 mg, Oral, 2 TIMES DAILY, First dose on 11/07/14 at 1300, Until Discontinued, Routine 08 (Given - Provider: Sherri Spear RN)2005 (Given - Provider: Lea Grijalva RN) 803 (Given - Provider: Sherri Spear RN)2027 (Given - Provider: Carolyn Howard RN) 09 (Given - Provider: Sherri Spear RN) citalopram (CeleXA) tablet 20 mg (CANCELED) 20 mg, Oral, DAILY, First dose on 11/07/14 at 1300, Until Discontinued, Routine 08 (Given - Provider: Sherri Spear RN) 08 (Given - Provider: Sherri Spear RN) 09 (Given - Provider: Sherri Spear RN) gabapentin (NEURONTIN) capsule 900 mg (CANCELED) 900 mg, Oral, 3 TIMES DAILY, First dose on 11/07/14 at 1300, Until Discontinued, Routine 826 (Given - Provider: Sherri Spear RN)141 (Given - Provider: Sherri Spear RN)2004 (Given - Provider: Lea Grijalva RN) 08 (Given - Provider: Sherri Spear RN)141 (Given - Provider: Sherri Spear RN)2027 (Given - Provider: Carolyn Howard RN) 09 (Given - Provider: Sherri Spear RN) ipratropium-albuterol (DUONEB) 0.5 mg-3 mg(2.5 mg base)/3 mL nebulizer solution 3 mL 3 mL, Nebulization, EVERY 4 HOURS, First dose on Sun11/08/14 at 0800, Until Discontinued, Routine 0147 (Not Given - Provider: Lea Grijalva RN - Reason: Patient/family refused)0434 (Not Given - Provider: Lea Grijalva RN - Reason: Patient/family refused)0829 (Given - Provider: Sherri Spear RN)1228 (Given - Provider: Sherri Spear RN)1635 (Given - Provider: Sherri Spear RN)2010 (Not Given - Provider: Lea Grijalva RN - Reason: Patient/family refused) 0047 (Not Given - Provider: Lea Grijalva RN - Reason: See comment - Comment: pt asleep, will hold med until awake)0552 (Given - Provider: Lea Grijalva RN)1051 (Given - Provider: Sherri Spear RN)1414 (Given - Provider: Sherri Spear RN)1722 (Given - Provider: Sherri Spear RN)2100 (Not Given - Provider: Carolyn Howard RN - Reason: Patient/family refused) 0100 (Not Given - Provider: Carolyn Howard RN - Reason: Patient/family refused)0639 (Given - Provider: Carolyn Howard RN)0921 (Given - Provider: Sherri Spear RN) lidocaine (LIDODERM) 5 %(700 mg/patch) patch 1 patch(Linked Group 1) 1 patch, Transdermal, DAILY, First dose on Sun11/07/14 at 0900, Until Discontinued, Apply patch(es) to R chest wall for 12 hours, and then remove for 12 hours, Routine 0829 (Given - Provider: Sherri Spear RN) 0805 (Given - Provider: Sherri Spear RN) 0921 (Not Given - Provider: Sherri Spear RN - Reason: See comment - Comment: pt discharged right after shower) lisinopril (PRINIVIL;ZESTRIL) tablet 10 mg 10 mg, Oral, DAILY, First dose on Sun11/10/14 at 0900, Until Discontinued, Routine 0827 (Given - Provider: Sherri Spear RN) 802 (Given - Provider: Sherri Spear RN) 09 (Given - Provider: Sherri Spear RN) LORazepam (ATIVAN) tablet 0.5 mg (CANCELED) 0.5 mg, Oral, 2 TIMES DAILY, First dose (after last modification) on Sun11/16/14 at 0900, Until Discontinued, Routine 826 (Given - Provider: Sherri Spear RN)2004 (Given - Provider: Lea Grijalva RN) LORazepam (ATIVAN) tablet 0.5 mg (CANCELED) 0.5 mg, Oral, NIGHTLY, First dose (after last modification) on Sun11/18/14 at 2100, Until Discontinued, Routine 2026 (Given - Provider: Carolyn Howard RN) miconazole (MICOTIN) 2 % powder Topical (Top), 2 TIMES DAILY, First dose on Sun11/16/14 at 1000, Until Discontinued 09 (Not Given - Provider: Sherri Spear RN - Reason: See comment - Comment: Not done with collar care)2005 (Given - Provider: Lea Grijalva RN) 1043 (Given - Provider: Sherri Spear RN)2099 (Not Given - Provider: Carolyn Howard RN - Reason: Patient/family refused)2313 (Given - Provider: Carolyn Howard RN - Comment: during collar care) 1133 (Given - Provider: Norma Ferrera RN) multivitamin (THERAGRAN) tablet 1 tablet 1 tablet, Oral, DAILY, First dose on Sun11/10/14 at 1200, Until Discontinued 826 (Given - Provider: Sherri Spear RN) 08 (Given - Provider: Sherri Spear RN) 09 (Given - Provider: Sherri Spear RN) nicotine (NICODERM CQ) 21 mg/24 hr patch 21 mg(Linked Group 2) 21 mg, Transdermal, DAILY, First dose on Sun11/07/14 at 0900, Until Discontinued, Routine 08 (Given - Provider: Sherri Spear RN) 08 (Given - Provider: Sherri Spear RN) 09 (Not Given - Provider: Sherri Spear RN - Reason: See comment - Comment: pt was discharged right after shower) nicotine (NICODERM CQ) patch REMOVAL (CANCELED)(Linked Group 2) Transdermal, DAILY, First dose on 11/08/14 at 0900, Until Discontinued, Remove Nicotine Patch 0900 (Given - Provider: Sherri Spear RN) 0900 (Patch Removed - Provider: Sherri Spear RN) 0900 (Patch Removed - Provider: Sherri Spear RN) polyethylene glycol (MIRALAX) packet 17 g 17 g, Oral, 2 TIMES DAILY, First dose (after last modification) on 11/15/14 at 0900, Until Discontinued, Administer if needed per patient's routine or if no bowel movement within 48 hours to achieve: 1) One bowel movement at least every 48 hours, AND 2) Without straining. If multiple bowel medications ordered, consider polyethylene glycol(MIRALAX) first., Routine 0900 (Not Given - Provider: Sherri Spear RN - Reason: Patient/family refused)2003 (Not Given - Provider: Lea Grijalva RN - Reason: Patient/family refused) 08 (Given - Provider: Sherri Spear RN)2100 (Not Given - Provider: Carolyn Howard RN - Reason: Patient/family refused) 0900 (Not Given - Provider: Sherri Spear RN - Reason: Patient/family refused) propranolol (INDERAL) tablet 80 mg 80 mg, Oral, 4 TIMES DAILY, First dose on 11/07/14 at 1300, Until Discontinued, Hold for SBP <90, HR <60, Routine 0828 (Given - Provider: Sherri Spear RN)1300 (Not Given - Provider: Sherri Spear RN - Reason: Order parameters not met)1700 (Not Given - Provider: Sherri Spear RN - Reason: Order parameters not met)2029 (Not Given - Provider: Lea Grijalva RN - Reason: Order parameters not met - Comment: HR 58) 0900 (Not Given - Provider: Sherri Spear RN - Reason: Order parameters not met)1415 (Given - Provider: Sherri Spear RN)1700 (Not Given - Provider: Sherri Spear RN - Reason: Order parameters not met)2100 (Not Given - Provider: Carolyn Howard RN - Reason: Order parameters not met) 09 (Not Given - Provider: Sherri Spear RN - Reason: Order parameters not met) senna-docusate (PERICOLACE) 8.6-50 mg per tablet 4 tablet 4 tablet, Oral, 2 TIMES DAILY, First dose (after last modification) on Sun11/11/14 at 0900, Until Discontinued, Routine 899 (Not Given - Provider: Sherri Spear RN - Reason: Patient/family refused)2003 (Not Given - Provider: Lea Grijlava RN - Reason: Patient/family refused) 09 (Not Given - Provider: Sherri Spear RN - Reason: Patient/family refused)2099 (Not Given - Provider: Carolyn Howard RN - Reason: Patient/family refused) 921 (Given - Provider: Sherri Spear RN) traZODone (DESYREL) tablet 150 mg 150 mg, Oral, NIGHTLY, First dose (after last modification) on Sun11/12/14 at 2100, Until Discontinued, Routine 2004 (Given - Provider: Lea Grijalva, ABEL) 2027 (Given - Provider: Carolyn Howard, ABEL) PRN Medication Order 11/17/2014 11/18/2014 11/19/2014 bisacodyl (DULCOLAX) EC tablet 10 mg 10 mg, Oral, 2 TIMES DAILY PRN, Starting on 11/07/14 at 1241, Until Kaur 11/19/14 at [...] Routine oxyCODONE (ROXICODONE) immediate release tablet 5-15 mg 5-15 mg, Oral, EVERY 4 HOURS PRN, Starting on 11/08/14 at 1407, Until Kaur 11/19/14 at 1343, Pain, give 5mg for pain 0-4; give 10mg for pain 5-7; give 15mg for pain 8-10, Routine 0023 (Given - Provider: Lea Grijalva RN)0432 (Given - Provider: Lea Grijalva, ABEL)0826 (Given - Provider: Sherri Spear RN)1228 (Given - Provider: Sherri Spear, ABEL)1635 (Given - Provider: Sherri Spear RN)2045 (Given - Provider: Lea Grijalva, ABEL) 0125 (Given - Provider: Lea Grijalva, ABEL)0553 (Given - Provider: Lea Grijalva, ABEL)1051 (Given - Provider: Sherri Spear RN)1455 (Given - Provider: Sherri Spear RN)1855 (Given - Provider: Sherri Spear RN)2303 (Given - Provider: Carolyn Howard, ABEL) 0315 (Given - Provider: Carolyn Howard RN)0731 (Given - Provider: Sherri Spear RN) Linked Groups Order Group 1: lidocaine (LIDODERM) 5 %(700 mg/patch) patch 1 patchJump to med 1 patch, Transdermal, DAILY, First dose on 11/07/14 at 0900, Until Discontinued, Apply patch(es) to R chest wall for 12 hours, and then remove for 12 hours, Routine And lidocaine (LIDODERM) patch REMOVAL (CANCELED) Transdermal, NIGHTLY, First dose on 11/07/14 at 2100, Until Discontinued, Remove Lidocaine Patch Group 2: nicotine (NICODERM CQ) 21 mg/24 hr patch 21 mgJump to med 21 mg, Transdermal, DAILY, First dose on 11/07/14 at 0900, Until Discontinued, Routine And nicotine (NICODERM CQ) patch REMOVAL (CANCELED)Jump to med Transdermal, DAILY, First dose on 11/08/14 at 0900, Until Discontinued, Remove Nicotine Patch documented in this encounter Care Teams Bagging Machine Operator Relationship Specialty Start Date End Date Sherri Rivas MD [address] [place] [address] PCP - General 04/24/14 12/15/14 documented as of this encounter
--- OUTSIDE RECORDS SUMMARY | 2023-11-30 15:18 | XMS_ITS | Encounter Summary ---
[place] [address] Care Team Providers Care Title Vehicle Service Attendant Name Role Phone Sherri Guzman MD Primary Care Provider [phone] Encounter Details Date Type Department Care Team (Late st Contact Info) Description 11/06/2014 Orders Only [facility] [place] [address] Ananda Pena MD [address] [place] [address] [place] [address] Social History Tobacco Use Types Packs/Day Years Used Date Smoking Tobacco: Never Assessed Sex and Gender Information Value Date Recorded Sex Assigned at Not on file Gender Identity Not on file Sexual Orientation Not on file documented as of this encounter Plan of Treatment Not on file documented as of this encounter Visit Diagnoses Not on filedocumented in this encounter Care Teams Title Vehicle Service Attendant Relationship Specialty Start Date End Date Sherri Guzman MD [address] [place] [address] PCP - General 04/24/14 12/15/14 documented as of this encounter
--- OUTSIDE RECORDS SUMMARY | 2023-11-30 15:18 | XMS_ITS | Encounter Summary ---
Author Organization [facility] Address [facility] [place] [address] Care Team Providers Care Cashier Assistant Name Role Phone Unavailable Primary Care Provider Unavailabl e Encounter Details Date Type Department Care Team (Latest Contact Info) Description 11/29/2015 8:40 AM EDT - 11/29/2015 11:59 PM EDT Hospital Encounter XRay at [address] [place] [address] [facility] [place] [address] Left wrist pain Discharge Disposition: Home Social History Tobacco Use [...] Comments XR WRIST 3 VIEWS LEFT Routine 11/29/2015 8:56 AM EDT Left wrist pain documented in this encounter Results * XR Wrist Complete Min 3 views Left (Generic) (11/29/2015 8:56 AM EDT) Anatomical Region Laterality Modality Left Digital Radiogra phy Impressions 11/29/2015 10:19 AM EDT 1. ??Radiographically healed distal left radius fracture in stable alignment, with dorsal tilt of the distal radius articular surface. 2. ??No acute osseous abnormality identified. Narrative 11/29/2015 10:19 AM EDT EXAMINATION: XR WRIST COMPLETE MIN 3 VIEWS LEFT CLINICAL HISTORY: LEFT WRIST PAIN 2ND OPIN S/P FX. 11/2014 TECHNIQUE: PA, lateral, oblique, and navicular views of the left wrist. COMPARISON: Outside institution radiographs of the left wrist dated 03/25/2015. FINDINGS: Radiographically healed distal radius fracture in unchanged alignment, with dorsal tilt of articular surface of the distal radius again noted. No new fracture is identified. Alignment of the distal radioulnar joint and carpal rows are maintained. No widening of the scapholunate interval. There are mild degenerative changes at the basal joint. Stable small sclerotic focus in the capitate, likely representing a bone island. No radiographically evident soft tissue swelling. Procedure Note Khushi Downey MD - 11/29/2015 EXAMINATION: XR WRIST COMPLETE MIN 3 VIEWS LEFT CLINICAL HISTORY: LEFT WRIST PAIN 2ND OPIN S/P FX. 11/2014 TECHNIQUE: PA, lateral, oblique, and navicular views of the left wrist. COMPARISON: Outside institution radiographs of the left wrist date03/25/2015. FINDINGS: Radiographically healed distal radius fracture in unchanged alignment,with dorsal tilt of articular surface of the distal radius again noted. Nonew fracture is identified. Alignment of the distal radioulnar joint andcarpal rows are maintained. No widening of the scapholunate interval. There are mild degenerative changes at the basal joint. Stable small sclerotic focus inthe capitate, likely representing a bone island. No radiographically evidentsoft tissue swelling. IMPRESSION 1. Radiographically healed distal left radius fracture in stablealignment, with dorsal tilt of the distal radius articular surface. 2. No acute osseous abnormality identified. Jared Bolaños MD IMG DX ORDERABLES documented in this encounter Visit Diagnoses Diagnosis Left wrist pain Pain in joint, forearm documented in this encounter
--- OUTSIDE RECORDS SUMMARY | 2023-11-30 15:18 | XMS_ITS | Encounter Summary ---
Author Organization [facility] Address [facility] [place] [address] Care Team Providers Care Auto Clocks Repairer Name Role Phone Unavailable Primary Care Provider Unavailabl e Encounter Details Date Type Department Care Team (Late st Contact Info) Description 12/16/2014 1:00 PM EDT Office Visit General Surgery at [facility] [place] [address] Jerson Lorenzana MD [facility] [place] [address] Closed fracture of one rib of right side, sequela Social History Tobacco Use Types Packs/Day Years [...] as of this encounter Progress Notes * Jerson Lorenzana MD - 12/19/2014 9:22 PM [...] that future narcotics will need to be prescribedby PCP or Neurosurgery if main issue is cervical tenderness - has follow up with Ortho today and Neurosurgery next week - Provided with PCP line so that he may establish himself with PCP here as he has transportation difficulties getting to [place] -no need for further Trauma Clinic follow up documented in this encounter Plan of Treatment Not on file documented as of this encounter Visit Diagnoses Diagnosis Closed fracture of one rib of right side, sequela documented in this encounter
--- OUTSIDE RECORDS SUMMARY | 2023-11-30 15:19 | XMS_ITS | Encounter Summary ---
Author Organization [facility] Address [facility] [place] [address] Care Team Providers Care Data Storage Specialist Name Role Phone Saul Amaro MD Primary Care Provider [phone] Encounter Details Date Type Department Care Team (Latest Contact Info) Description 11/18/2013 - 11/18/2013 11:59 PM EDT Hospital Encounter Radiology Library [place] [facility] [address] Jared Bolaños MD [facility] [place] [address] Wrist pain, left Discharge Disposition: Home Social [...] FILM LIBRARY STORAGE ONLY DX WRIST Routine 11/18/2013 12:00 AM EDT Wrist pain, left documented in this encounter Results * Film Library- Storage only DX Wrist (11/18/2013 12:00 AM EDT) Narrative LINDA - 11/09/2015 11:34 AM EDT This exam is for storage only and is auto-finalizing. Jared Bolaños MD [facility] FILM LIBRARY ORD ERABLES [place], [place] documented in this encounter Visit Diagnoses Diagnosis Wrist pain, left Pain in joint, forearm documented in this encounter Care Teams Data Storage Specialist Relationship Specialty Start Date End Date Saul Amaro MD [address] [facility] [place] [address] PCP - General 01/25/10 04/23/14 documented as of this encounter
--- OUTSIDE RECORDS SUMMARY | 2023-11-30 15:19 | XMS_ITS ---
Author Organization [facility] Address [address] [place] [address] Care Team Providers Care Lining Presser Name Role Phone Sherri Guzman MD Primary Care Provider [phone] Dialysis Access Sites Type Status Location Placement Date Removal Da te Peripheral IV 08/06/23 1722 Right;Anterior Forearm Inactive Right Forearm - Anterior 08/06/2023 08/11/2023 Peripheral IV 08/03/23 2032 Left Antecubital Inactive Left Antecubital Fossa 08/03/202305/2023 Rectal Tube With balloon Inactive Perineum 07/04/2023 07/07/2023 Urethral Catheter Latex 16 fr Inactive Pubic 07/02/2023 07/15/2023 Rectal Tube With balloon Inactive Perineum 06/30/2023 07/03/2023 Peripheral IV 06/29/23 1240 Anterior;Proximal;Right Upper Arm Inactive Right Upper Arm - Anterior, Proximal 06/29/2023 07/01/2023 Peripheral IV 06/29/23 1240 Anterior;Right Forearm Inactive Right Forearm - Anterior 06/29/2023 07/01/2023 Rectal Tube With balloon Inactive Perineum 06/28/2023 06/28/2023 Peripheral IV 06/26/23 1028 Left;Medial;Distal Forearm Inactive Left Forearm - Anterior, Distal 06/26/2023 06/29/2023 Hemodialysis Cath Triple Lumen 06/25/23 Inactive Left Neck (side) - Anterior 06/25/2023 07/11/2023 Urethral Catheter Latex 16 fr Inactive Pubic 06/25/2023 07/02/2023 Procedures Procedure Name Priority Date/Time Associated Diagnosis Comments ECG REPORT - SCANNED 09/03/2023 15:55 EDT ECG REPORT - SCANNED 09/03/2023 9:13 EDT DIALYSIS HEPATITIS- DIALYSIS USE ONLY Add-On 06/28/2023 5:36 EDT from Last 3 Months or Most Recently Relevant to Health Maintenance Allergies Active Allergy Reactions Criticality Noted Date Comments Clonidine Other (See Comments) 04/14/2009 Dry mouth Medications Medication Sig Dispensed Refills Start Date End Date Status IPRATROPIUM/ALBUTERO L SULFATE (COMBIVENT INHL) Inhale 2 Puffs as directed every 4 hours as needed. Active gabapentin (NEURONTIN) 300 mg tablet Take 3 Tabs by mouth 3 times daily. Active citalopram (CELEXA) 20 mg tablet Take 1 Tablet by mouth daily. Active cyclobenzaprine (FLEXERIL) 10 mg tablet Take 1 Tablet by mouth 3 times daily as needed for Muscle Spasms. 05/15/2023 Active HYDROcodone-acetamin ophen (NORCO) 10-325 mg tablet Take 1 Tablet by mouth every 6 hours. 05/30/2023 Active CEROVITE SENIOR 0.4 mg-300 mcg- 250 mcg tablet Take 1 Tablet by mouth daily. 04/04/2023 Active pantoprazole (PROTONIX) 40 mg tablet Take 1 Tablet by mouth daily. 04/03/2023 Active topiramate (TOPAMAX) 50 mg tablet Take 1 Tablet by mouth 2 times daily. Active atorvastatin (LIPITOR) 40 mg tablet Take 1 Tablet by mouth daily. 30 Tablet 08/20/2023 Active torsemide (DEMADEX) 20 mg tablet Take 2 Tablets by mouth 2 times daily at 8am and 2pm. 120 Tablet 08/20/2023 Active ferrous sulfate 324 mg, 65 mg elemental, 324 mg (65 mg iron) tablet,delayed release (DR/EC) Take 1 Tablet by mouth every 48 hours. 15 Tablet 08/20/2023 Active metoprolol SUCCinate (TOPROL-XL) 50 mg tablet Take 1 Tablet by mouth daily. 30 Tablet 08/21/2023 Active acetaminophen (TYLENOL) 325 mg tablet Take 1 Tablet by mouth 4 times daily as needed for Pain. 08/20/2023 Active polyethylene glycol 3350 (MIRALAX) 17 gram packet Take 17 g by mouth daily as needed for Constipation. 08/20/2023 Active lidocaine 5 % (LIDODERM) 5 % patchIndications:Oth er chronic pain Place 1 Patch onto the skin daily. 08/21/2023 Active TAMSulosin (FLOMAX) 0.4 mg capsule Take 1 Capsule by mouth daily. 08/21/2023 Active senna (SENOKOT) 8.6 mg tablet Take 1 Tablet by mouth at bedtime as needed for Constipation. 08/20/2023 Active Active Problems Problem Noted Date Diagnosed Date Leg edema 08/04/2023 Atrial fibrillation ([facility]) 06/28/2023 Type 2 diabetes mellitus 06/26/2023 JOS (acute kidney injury) ([facility]) 06/25/2023 Hypertensive disorder 04/14/2009 Overview: 09/21/08 Backache 04/14/2009 Overview: 09/21/08 Asthma 04/14/2009 Overview: 09/21/08 Alcohol abuse 04/14/2009 Overview: 09/21/08 Smoking 04/14/2009 Overview: 09/21/08 Obesity 04/14/2009 Overview: 09/21/08 Neck pain 04/14/2009 Overview: 09/21/08 Chronic pain 04/14/2009 Overview: 09/21/08 Hepatitis C antibody test positive 04/14/2009 Overview: Ab pos 10/19/08 Left shoulder pain 04/14/2009 Overview: 01/15/09 Social History Tobacco Use Types Packs/Day Years Used Date Smoking Tobacco: Unknown Tobacco Cessation:Counseling Given: Not Answered Sex and Gender Information Value Date Recorded Sex Assigned at Not on file Gender Identity Male 07/04/2023 11:28 EDT Sexual Orientation Not on file Last Filed Vital Signs Vital Sign Reading Time Taken Comments Blood Pressure 110/70 08/20/2023 0803 EDT Pulse 82 08/13/2023 0655 EDT Temperature 36.8 ??C (98.2 ??F) 08/20/2023 0803 EDT Respiratory Rate 18 08/20/2023 0803 EDT Oxygen Saturation 98% 08/20/2023 0803 EDT Inhaled Oxygen Concentration - - Weight 65.6 kg (144 lb 11.2 oz) 08/19/2023 0558 EDT Height 182.9 cm (6' 0.01) 08/09/2023 0900 EDT Body Mass Index 19.62 08/09/2023 0900 EDT Results * ECG REPORT - SCANNED (09/03/2023 15:55 EDT) 09/03/2023 15:5 5 EDT Scan 2 Shoe Sewing Machine Operator And Tender PROCEDURE/MINOR MILKA GICAL ORDERABLES * ECG REPORT - SCANNED (09/03/2023 9:13 EDT) 09/03/2023 9:13 EDT Scan 2 Shoe Sewing Machine Operator And Tender PROCEDURE/MINOR MILKA GICAL ORDERABLES * (ABNORMAL) DIALYSIS HEPATITIS- DIALYSIS USE ONLY (06/28/2023 5:36 EDT) Hep B Surface Ag Negative Negative 06/28/19 10:09 [facility] Hep B Surface Ab, Quantitative 138.6 See Note mIU/mL 06/28/2023 10:09 [facility] Comment: Reference Range for Hep B Surface Ab, Quant: Positive: >= 10.0 mIU/mL Negative: ??< 10.0 mIU/mL Patient is presumed to be immune to infection with Hepatitis B Virus. Hep B Surface Ab, Qualitative Positive See Note 06/28/2023 10:09 [facility] Comment: Reference Range for Hep B Surface Ab, Qual: Unvaccinated: ??Negative Vaccinated: ??Positive Hepatitis B Core Ab, Total Positive(A) Negative 06/28/2023 10:09 [facility] Hep C Antibody Reactive(A) Negative 10:09 EDT [facility] Comment: Supplemental testing for HCV RNA is ordered to rule out active HCV infection. Blood VENOUS BLOOD / Unknown Venipuncture / Unknown 06/28/2023 5:36 EDT 06/28/2023 5:40 EDT Charanjit Taylor MD CHEMISTRY & BLOOD GA S ORDERABLES [facility] [address] [place], [place] [id number] from Last 3 Months or Most Recently Relevant to Health Maintenance
--- OUTSIDE RECORDS SUMMARY | 2023-11-30 15:19 | XMS_ITS | Referral Summary ---
Author Organization [facility] Address [address] [place] [address] Care Team Providers Care Vegetable Washer Name Role Phone Sherri Guzman MD Primary Care Provider [phone] Allergies Active Allergy Reactions Criticality Noted Date [...] Diagnosed Date Leg edema 08/04/2023 Atrial fibrillation ([facility]) 06/28/2023 Type 2 diabetes mellitus 06/26/2023 JOS (acute kidney injury) ([facility]) 06/25/2023 Hypertensive disorder 04/14/2009 Overview: 09/21/08 Backache 04/14/2009 Overview: 09/21/08 Asthma 04/14/2009 Overview: 09/21/08 Alcohol abuse 04/14/2009 Overview: 09/21/08 Smoking 04/14/2009 Overview: 09/21/08 Obesity 04/14/2009 Overview: 09/21/08 Neck pain 04/14/2009 Overview: 09/21/08 Chronic pain 04/14/2009 Overview: 09/21/08 Hepatitis C antibody test positive 04/14/2009 Overview: Ab pos 10/19/08 Left shoulder pain 04/14/2009 Overview: 01/15/09 Resolved Problems Problem Noted Date Diagnosed Date Resolved Date Arm weakness 08/04/2023 08/10/2023 Scrotal pain 07/31/2023 08/10/2023 Hypotension 07/20/2023 08/10/2023 Hypernatremia 07/10/2023 08/10/2023 HAP (hospital-acquired pneumonia) 07/08/2023 08/10/2023 Hyperphosphatemia 07/05/2023 08/10/2023 Hypokalemia 07/03/2023 08/10/2023 Hypervolemia 06/30/2023 08/10/2023 Encounter for hemodialysis ([facility]) 06/30/2023 08/10/2023 Metabolic acidosis 06/30/2023 Acute on chronic systolic he art failure ([facility]) 06/28/2023 08/10/2023 Cardiogenic shock ([facility]) 06/25/2023 08/10/2023 Acute hypoxemic respiratory failure ([facility]) 06/25/1908/10/2023 Lactic acidosis 06/25/2023 08/10/2023 Encephalopathy 06/25/2023 08/10/2023 Shock liver 06/25/2023 08/10/2023 DIC (disseminated intravascu lar coagulation) ([facility]) 06/25/2023 08/10/2023 Social History Tobacco Use Types Packs/Day Years [...] Body Mass Index 19.62 08/09/2023 0900 EDT Plan of Treatment Not on file Procedures Procedure Name Priority Date/Time Associated Diagnosis Comments ECG REPORT - SCANNED 09/03/2023 15:55 EDT ECG REPORT - SCANNED 09/03/2023 9:13 EDT DIALYSIS HEPATITIS- DIALYSIS USE ONLY Add-On 06/28/2023 5:36 EDT from Last 3 Months or Most Recently Relevant to Health Maintenance Results * ECG REPORT - SCANNED (09/03/2023 15:55 EDT) 09/03/2023 15:5 5 EDT Scan 2 Medical Record Consultant PROCEDURE/MINOR MILKA GICAL ORDERABLES * ECG REPORT - SCANNED (09/03/2023 9:13 EDT) 09/03/2023 9:13 EDT Scan 2 Medical Record Consultant PROCEDURE/MINOR MILKA GICAL ORDERABLES * (ABNORMAL) DIALYSIS HEPATITIS- DIALYSIS USE ONLY (06/28/2023 5:36 EDT) Hep B Surface Ag Negative Negative 06/28/19 10:09 [facility] Hep B Surface Ab, Quantitative 138.6 See Note mIU/mL 06/28/2023 10:09 [facility] Comment: Reference Range for Hep B Surface Ab, Quant: Positive: >= 10.0 mIU/mL Negative: ??< 10.0 mIU/mL Patient is presumed to be immune to infection with Hepatitis B Virus. Hep B Surface Ab, Qualitative Positive See Note 06/28/2023 10:09 [facility] Comment: Reference Range for Hep B Surface Ab, Qual: Unvaccinated: ??Negative Vaccinated: ??Positive Hepatitis B Core Ab, Total Positive(A) Negative 06/28/2023 10:09 [facility] Hep C Antibody Reactive(A) Negative 10:09 EDT [facility] Comment: Supplemental testing for HCV RNA is ordered to rule out active HCV infection. Blood VENOUS BLOOD / Unknown Venipuncture / Unknown 06/28/2023 5:36 EDT 06/28/2023 5:40 EDT Charanjit Taylor MD CHEMISTRY & BLOOD GA S ORDERABLES [facility] [address] [place] [address] from Last 3 Months or Most Recently Relevant to Health Maintenance Advance Directives For more information, please contact: [phone] Documents on File Type Date Recorded Patient Vehicle Dynamics Engineer Expl anation COLST/MOLST 08/23/2023 13:03 -D NR/COLST * Limitation of Treatment (Latest Code Status on File) Date Activated Date Inactivated Comments 08/13/2023 16:14 08/20/2023 15:30 Question Answer Comments When the patient has NO PULSE: DNR When the patient HAS A PULSE and is in respiratory distress/failure: Do not intubate (DNI) Who Made the Decision? Patient * Full Code Date Activated Date Inactivated Comments 06/25/2023 13:36 08/13/2023 16:14 Question Answer Comments When the patient has NO PULSE: Full Code / CPR Who Made the Decision? Default/Not Discussed Care Teams Vegetable Washer Relationship Specialty Start Date End Date Sherri Guzman MD [address] [place] [address] PCP - General 06/25/23
--- OUTSIDE RECORDS SUMMARY | 2023-11-30 15:19 | XMS_ITS | Clinical Summary ---
Author Organization [facility] Address [address] [place] [address] Care Team Providers Care Recruiting Scheduler Name Role Phone Sherri Guzman MD Primary Care Provider [phone] Allergies Active Allergy Reactions Criticality Noted Date [...] Diagnosed Date Leg edema 08/04/2023 Atrial fibrillation ([facility]) 06/28/2023 Type 2 diabetes mellitus 06/26/2023 JOS (acute kidney injury) ([facility]) 06/25/2023 Hypertensive disorder 04/14/2009 Overview: 09/21/08 [...] 08/10/2023 Hypervolemia 06/30/2023 08/10/2023 Encounter for hemodialysis ([facility]) 06/30/2023 08/10/2023 Metabolic acidosis 06/30/2023 Acute on chronic systolic he art failure ([facility]) 06/28/2023 08/10/2023 Cardiogenic shock ([facility]) 06/25/2023 08/10/2023 Acute hypoxemic respiratory failure ([facility]) 06/25/1908/10/2023 Lactic acidosis 06/25/2023 08/10/2023 Encephalopathy 06/25/2023 08/10/2023 Shock liver 06/25/2023 08/10/2023 DIC (disseminated intravascu lar coagulation) ([facility]) 06/25/2023 08/10/2023 Social History Tobacco Use Types Packs/Day Years Used Date Smoking Tobacco: Unknown Tobacco Cessation:Counseling Given: Not Answered Sex and Gender Information Value Date Recorded Sex Assigned at Not on file Gender Identity Male 07/04/2023 11:28 EDT Sexual Orientation Not on file Obstetrics History Last Filed Vital Signs Vital Sign Reading [...] 19.62 08/09/2023 0900 EDT Plan of Treatment Health Maintenance Due Date Last Done Comments Asthma Action Plan 1955 Eye Exam 1955 Foot Exam 1955 Hemoglobin A1C (Ha1C) 1955 Lung Function Test (Spirometry) 1955 Microalbumin/Creatinine Ratio 1955 Lipid Profile Screening (Cholesterol) 05/15/1958 RSV Immunization ( o r 60+ Years) (1 - 1-dose 60+ series) 2015 COVID-19 Vaccine (2022- season) 2023 Fall Risk Screening 06/24/2024 06/25/2023 Hepatitis C Screen Completed 06/28/2023, 0 06/28/2023, 06/26/2023 Procedures Procedure Name Priority Date/Time Associated Diagnosis Comments ECG REPORT - SCANNED 09/03/2023 15:55 EDT ECG REPORT - SCANNED 09/03/2023 9:13 EDT DIALYSIS HEPATITIS- DIALYSIS USE ONLY Add-On 06/28/2023 5:36 EDT from Last 3 Months or Most Recently Relevant to Health Maintenance Results * ECG REPORT - SCANNED (09/03/2023 15:55 EDT) 09/03/2023 15:5 5 EDT Scan 2 House Mover Helper PROCEDURE/MINOR MILKA GICAL ORDERABLES * ECG REPORT - SCANNED (09/03/2023 9:13 EDT) 09/03/2023 9:13 EDT Scan 2 House Mover Helper PROCEDURE/MINOR MILKA GICAL ORDERABLES * (ABNORMAL) DIALYSIS HEPATITIS- DIALYSIS USE ONLY (06/28/2023 5:36 EDT) Hep B Surface Ag Negative Negative 06/28/19 10:09 EDT [facility] Hep B Surface Ab, Quantitative 138.6 See Note mIU/mL 06/28/2023 10:09 EDT [facility] Comment: Reference Range for Hep B Surface Ab, Quant: Positive: >= 10.0 mIU/mL Negative: ??< 10.0 mIU/mL Patient is presumed to be immune to infection with Hepatitis B Virus. Hep B Surface Ab, Qualitative Positive See Note 06/28/2023 10:09 EDT [facility] Comment: Reference Range for Hep B Surface Ab, Qual: Unvaccinated: ??Negative Vaccinated: ??Positive Hepatitis B Core Ab, Total Positive(A) Negative 06/28/2023 10:09 EDT [facility] Hep C Antibody Reactive(A) Negative 10:09 EDT [facility] Comment: Supplemental testing for HCV RNA is ordered to rule out active HCV infection. Blood VENOUS BLOOD / Unknown Venipuncture / Unknown 06/28/2023 5:36 EDT 06/28/2023 5:40 EDT Charanjit Taylor MD CHEMISTRY & BLOOD GA S ORDERABLES [facility] [address] [place] [address] from Last 3 Months or Most Recently Relevant to Health Maintenance [address] [place] [address] Derrick Nolan Personal/Famil y Self 1955 [address] [facility] [address] [place] [address] Derrick Nolan Personal/Famil y Self 1955 [address] [facility] [address] [place] [address] Derrick Nolan Personal/Famil y Self 1955 [address] [facility] [address] [place] [address] Derrick Nolan Personal/Famil y Self 1955 [address] [facility] [address] [place] [address] Derrick Nolan Personal/Famil y Self 1955 [address] [facility] [address] [place] [address] Derrick Nolan Personal/Famil y Self 1955 [address] [facility] [address] [place] [address] Derrick Nolan Personal/Famil y Self 1955 [address] [facility] [address] [place] [address] Advance Directives For more information, please contact: [phone] Documents on File Type Date Recorded Patient Time Cycle Operator Expl anation COLST/MOLST 08/23/2023 13:03 -D NR/COLST [...] Made the Decision? Default/Not Discussed Care Teams Recruiting Scheduler Relationship Specialty Start Date End Date Sherri Guzman MD [address] [place] [address] PCP - General 06/25/23
--- OUTSIDE RECORDS SUMMARY | 2023-11-30 15:19 | XMS_ITS | Encounter Summary ---
Author Organization [facility] Address [facility] [place] [address] Care Team Providers Care Fruit I Farmworker Name Role Phone Saul Amaro MD Primary Care Provider [phone] Encounter Details Date Type Department Care Team (Latest Contact Info) Description 11/26/2013 - 11/26/2013 11:59 PM EDT Hospital Encounter Radiology Library at [facility] [address] Jared Bolaños MD [facility] [place] [address] Wrist pain, left Discharge Disposition: Home Social [...] FILM LIBRARY STORAGE ONLY DX WRIST Routine 11/26/2013 12:00 AM EDT Wrist pain, left documented in this encounter Results * Film Library- Storage only DX Wrist (11/26/2013 12:00 AM EDT) Narrative LINDA - 11/09/2015 11:36 AM EDT This exam is for storage only and is auto-finalizing. Jared Bolaños MD [facility] FILM LIBRARY ORD ERABLES [place], [place] documented in this encounter Visit Diagnoses Diagnosis Wrist pain, left Pain in joint, forearm documented in this encounter Care Teams Fruit I Farmworker Relationship Specialty Start Date End Date Saul Amaro MD [address] [facility] [place] [address] PCP - General 01/25/10 04/23/14 documented as of this encounter
--- OUTSIDE RECORDS SUMMARY | 2023-11-30 15:19 | XMS_ITS | Encounter Summary ---
Author Organization [facility] [place] [address] Care Team Providers Care Insulation Blower Name Role Phone Saul Amaro MD Primary Care Provider [phone] Encounter Details Date Type Department Care Team (Latest Contact Info) Description 01/20/2014 - 01/20/2014 11:59 PM EST Hospital Encounter Radiology Library at [facility] [place] [place] [address] Jared Bolaños MD [facility] [place] [address] Wrist pain, left Discharge Disposition: Home Social [...] FILM LIBRARY STORAGE ONLY DX WRIST Routine 01/20/2014 12:00 AM EST Wrist pain, left documented in this encounter Results * Film Library- Storage only DX Wrist (01/20/2014 12:00 AM EST) Narrative LINDA - 11/09/2015 11:40 AM EDT This exam is for storage only and is auto-finalizing. Jared Bolaños MD [facility] FILM LIBRARY ORD ERABLES [place], [place] documented in this encounter Visit Diagnoses Diagnosis Wrist pain, left Pain in joint, forearm documented in this encounter Care Teams Insulation Blower Relationship Specialty Start Date End Date Saul Amaro MD [address] [place] [address] PCP - General 01/25/10 04/23/14 documented as of this encounter
--- OUTSIDE RECORDS SUMMARY | 2023-11-30 15:19 | XMS_ITS | Encounter Summary ---
Author Organization [facility] Address [facility] [place] [address] Care Team Providers Care Farm Loan Inspector Name Role Phone Saul Amaro MD Primary Care Provider [phone] Encounter Details Date Type Department Care Team (Latest Contact Info) Description 11/08/2013 - 11/08/2013 11:59 PM EDT Hospital Encounter Radiology Library at [facility] [place] [address] Jared Bolaños MD [facility] [place] [address] Wrist pain, left Discharge Disposition: Home Social [...] FILM LIBRARY STORAGE ONLY DX WRIST Routine 11/08/2013 12:00 AM EDT Wrist pain, left documented in this encounter Results * Film Library- Storage only DX Wrist (11/08/2013 12:00 AM EDT) Narrative LINDA - 11/09/2015 11:31 AM EDT This exam is for storage only and is auto-finalizing. Jared Bolaños MD [facility] FILM LIBRARY ORD ERABLES [place], [place] documented in this encounter Visit Diagnoses Diagnosis Wrist pain, left Pain in joint, forearm documented in this encounter Care Teams Farm Loan Inspector Relationship Specialty Start Date End Date Saul Amaro MD [address] [facility] [place] [address] PCP - General 01/25/10 04/23/14 documented as of this encounter
--- OUTSIDE RECORDS SUMMARY | 2023-11-30 15:22 | XMS_ITS | Encounter Summary ---
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 Name Role Phone Davian Guzman MD Primary Care Provider [phone] Reason for Referral * Consult (Routine/Next Available) - New Request Specialty Diagnoses / Procedures Referred By Contac t Referred To Contact Cardiology Diagnoses Acute on chronic systolic heart failure (HCC-CMS) [facility] 6 Gen Med/Tele [address] [place] [address] [facility] Cardiology [address] [place] [address] Referral ID Status Reason Start Date Expiration Date Visits Requested Visits Authorized [id number] New Request Specialty Services Required 08/20/2023 1 1 Question Answer Reason for Request: follow-up hospitalization with septic cardiomyopathy, severe JOS requiring HD, HFrEF, EF 40% * Follow Up (Routine/Next Available) - New Request Specialty Diagnoses / Procedures Referred By Contac t Referred To Contact Diagnoses JOS (acute kidney injury) (HCC-CMS) Acute on chronic systolic heart failure (HCC-CMS) Atrial fibrillation, unspecified type (HCC-CMS) [facility] 6 Gen Med/Tele [address] [place] [address] Davian Guzman MD [address] [place] [id number] Referral ID Status Reason Start Date Expiration Date Visits Requested Visits Authorized [id number] New Request Continuity of Care 08/20/2023 1 1 Question Answer Reason for Request: follow-up hospitalization, consider resuming anticoagulation, titrating torsemide/GDMT Reason for Visit * Auth/Cert (Routine) Specialty Diagnoses / Procedures Referred By Contac t Referred To Contact Diagnoses Shock (HCC-CMS) Multi Organ Failure Referral ID Status Reason Start Date Expiration Date Visits Re quested Visits Authorized [id number] 1 1 Encounter Details Date Type Department Care Team (Late st Contact Info) Description 06/25/2023 13:23 EDT - 08/20/2023 13:23 EDT Hospital Encounter [place] [id number] General Medicine Telemetry Unit [address] [place] [id number] Charanjit Taylor MD [address] [place] [address], [facility] [address] [place] [phone] Kael Denny MD [address] [place] [address], [facility] [address] [place] [address] Liliam Sánchez MD [address] [phone] Can Oneill MD [address] [place] [phone] Araseli Finnegan MD [address] [place] [phone] Sunny Georges MD [address] [place] [phone] Nomi Kingsley MD [address] [place] [phone] Neelima Estrada MD [address] [place] [phone] Eli Ferreira MD [address] [place] [phone] Wilber Ho MD [address] [place] [phone] Jericho Sparrow MD [address] [place] [phone] JOS (acute kidney injury) ([facility]-CMS) (Primary Dx); Lactic acidosis; Shock liver; Cardiogenic shock ([facility]-CMS); Acute hypoxemic respiratory failure ([facility]-CMS); Coagulopathy ([facility]-CMS); Encephalopathy; DIC (disseminated intravascular coagulation) ([facility]-CMS); Type 2 diabetes mellitus with other specified complication, without long-term current use of insulin (HCC-CMS); Acute on chronic systolic heart failure ([facility]-CMS); Atrial fibrillation, unspecified type (HCC-CMS); Metabolic acidosis; Hypervolemia, unspecified hypervolemia type; Encounter for hemodialysis (HCC-CMS); Hypokalemia; Hyperphosphatemia; HAP (hospital-acquired pneumonia); Hypernatremia; Hypotension, unspecified hypotension type; Scrotal pain; Leg edema; Arm weakness; Ischemic stroke (HCC-CMS); Other chronic pain Discharge Disposition: Nursing Facility (Skilled) Social History Tobacco Use Types Packs/Day Years Used Date Smoking Tobacco: Unknown Tobacco Cessation:Counseling Given: Not Answered Sex and Gender Information Value Date Recorded Sex Assigned at Not on file Gender Identity Male 07/04/2023 11:28 EDT Sexual Orientation Not on file documented as [...] Body Mass Index 19.62 08/09/2023 0900 EDT documented in this encounter Discharge Summaries * Jericho Sparrow MD - 08/20/2023 1027 EDT [facility] Primary Care Provider: Davian Guzman Attending Physician: Jericho Sparrow MD Admit Date: 06/25/23 Discharge Date: 08/20/2023 Disposition (location): [facility] Condition at Discharge: Improved Reason for Admission (chief complaint): Multifactorial shock w/ multi-organ dysfunction Principal/Final Diagnosis: Cardiogenic shock ([facility]) Additional Problems Managed in the Hospital: Active Hospital Problems Diagnosis Date Noted Leg edema 08/04/2023 Atrial fibrillation ([facility]) 06/28/2023 Type 2 diabetes mellitus 06/26/2023 JOS (acute kidney injury) ([facility]) 06/25/2023 Resolved Hospital Problems Diagnosis Date Noted Date Resolved *Cardiogenic shock ([facility]) 06/25/2023 08/10/2023 Arm weakness 08/04/2023 08/10/2023 Scrotal pain 07/31/2023 08/10/2023 Hypotension 07/20/2023 08/10/2023 Hypernatremia 07/10/2023 08/10/2023 HAP (hospital-acquired pneumonia) 07/08/2023 08/10/2023 Hyperphosphatemia 07/05/2023 08/10/2023 Hypokalemia 07/03/2023 08/10/2023 Hypervolemia 06/30/2023 08/10/2023 Encounter for hemodialysis ([facility]) 06/30/2023 08/10/2023 Metabolic acidosis 06/30/2023 08/10/2023 Acute on chronic systolic heart failure ([facility]) 06/28/2023 08/10/2023 Acute hypoxemic respiratory failure ([facility]) 06/25/2023 08/10/2023 Lactic acidosis 06/25/2023 08/10/2023 Encephalopathy 06/25/2023 08/10/2023 Shock liver 06/25/2023 08/10/2023 DIC (disseminated intravascular coagulation) ([facility]) 06/25/2023 08/10/2023 Transition of care: [facility] Transition of Care report automatically routed to PCP office on discharge. Clinical Issues Needing Follow-up 1. Pertinent medication changes: - Gabapentin reduced to 300mg TID (renal dosing) - Torsemide 40 mg BID - Metoprolol succinate 50 mg once daily - Thiamine 100mg once daily - Topiramate 50 mg BID 2. Recommended follow-up tests/procedures needed: - OP cardiology follow up for CHF, GDMT, consideration of Watchman for afib. Referral sent to [facility] cardiology. - OP ENT for recurrent epistaxis. Referral sent to [facility]. 3. Anticoagulation on discharge: Did not start apixaban due to recurrent nosebleeds, wanted to discuss with PCP, recommend continued discussion regarding risks and benefits of anticoagulation 4. Changes to goals of care at time of discharge (if applicable): None Hospital Course: Derrick Harmon is a 68-year-old male with a past medical history significant for A-fib on apixaban, COPD, cirrhosis, untreated hep C, who initially presented to [facility] with severe epistaxis requiringbilateral Rhino Rocket's that were left in place for four days due to persistent bleeding. He was transferred to [facility] for specialized ENT care but quickly became febrile and hypoglycemic and decompensated into mixed cardiogenic and septic shock secondary to infection attributed to Rhino Rocket's. He then had a complicated and protracted ICU stay at points requiring intubation, CRRT for severe JOS with volume overload, correction of severe electrolyte derangements, and management of A-fib with RVR. On July 04 he was transferred to the floor where he had a slow recovery and mental status. He underwent a limited number of dialysis sessions, with his last dialysis session on July 05, and he continued to make good urine throughout the rest of his admission. His new baseline creatinine appears to be ~1.5. His PO intake was initially poor, and required nasogastric tube feeds until 07/12, but had great intake at time of discharge. TTE obtained at admission showed severe cardiogenic shock with ejection fraction of <20%. Subsequent TTE demonstrated improvement with EF of 40%. Additional cardiac workup with NM SPECT stress test revealed small fixed apical perfusion defect, not necessitating any intervention. 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 Additional GDMT was limited by borderline hypotension and renal function. His anticoagulation with apixaban was held due to left groin hematoma (likely related to left femoral arterial line placed at [facility]) and recurrent nosebleeds, and continued to be held at discharge pending further resolution of the hematoma. Could consider a watchman as an alternative to anticoagulation. BNP was 3,210 (his baseline) on day of discharge. On 08/03, he had sudden onset of wrist drop in the setting of Afib without anticoagulation prompting concern for stroke. CT head/neck and non-con MRI negative for CVA. Wrist drop continued to improve, and his symptoms were attributed to nerve compression injury. He completed a course of fluconazole and ketoconazole for symptomatic candiduria and tinea cruris. We recommend not resuming jardiance given this infection. He was on metoprolol 50 mg daily and torsemide 40 mg BID for his HFrEF, with plan to follow up with PCP in 1 week with labs, and cardiology soon after. Relevant Imaging/Procedures Performed: 06/24 L trialysis line placement 06/24 Initiation of CRRT 06/25 PA catheter placement 06/26 CRRT stopped 06/28; transitioned to iHD. 06/27 PA catheter removed 07/02 Extubated 07/05 HD stopped 07/10 Left IJ temporary dialysis catheter removed Results Pending at Discharge: Test results still pending from this admission Procedure Component Value Units Date/Time Magnesium [[id number]] Collected: 08/20/23 0956 Lab Status: In process Specimen: Blood, Venous Updated: 08/20/23 1012 Basic Metabolic Panel (BMP) [[id number]] Collected: 08/20/23 0956 Lab Status: In process Specimen: Blood, Venous Updated: 08/20/23 1012 Please Note: Does not include future Hemodialysis appointments. Please use Chart Review-Encounters to see future scheduled Hemodialysis appointments. Follow-up appointments and procedures Amb Consult/Follow Up Primary Care Physician Outside of Network Reason for Request: follow-up hospitalization, consider resuming anticoagulation, titrating torsemide/GDMT Authorizing Provider: Shanthi Sen MD Amb Consult/Follow Up Cardiology Reason for Request: follow-up hospitalization with septic cardiomyopathy, severe JOS requiring HD, HFrEF, EF 40% Authorizing Provider: Shanthi Sen MD Follow-up labs and tests Basic Metabolic Panel (BMP) Complete by: Aug 27, 2023 (Approximate) Scheduling Instructions: Blood Test and Fasting How long do I have to fast for before a blood test? - If a fasting blood test is ordered, you should not have anything to eat or drink (except water) for at least eight hours. This usually involves an overnight fast. - You should continue to take any prescription medications, unless your physician directed you not to take them. - Smoking and exercise may affect your results as well, so you should refrain from these activitiesas much as possible during this time. If you have any concerns about refraining from food for this period of time, talk to your physician. Authorizing Provider: Shanthi Sen MD DANIEL MORONEY, MD 08/20/2023 11:00 I interviewed and examined patient. I agree with findings and plan of care documented by resident. I spent 35 minutes on day of discharge Jreicho Sparrow MD documented in this encounter Discharge Instructions * Discharge Instr - AVS First Page* Shanthi Sen MD - 08/07/2023 12:24 EDT Reason for Hospitalization: You were admitted to the hospital and treated for cardiogenic shock with multi-organ failure, now improved with ongoing congestive heart failure and chronic kidney disease. Follow-up: Please follow-up with your Primary Care Physician (PCP), Davian Guzman, as soon as able to discuss your home medications and changes made in the hospital. Please follow-up with Outpatient Cardiology to discuss a possible watchman device for blood clot prevention due to your atrial fibrillation, and to monitor for heart changes due to ischemia (muscle damage from low oxygen). Please follow-up with Ear, Nose and Throat clinic to discuss your recurrent nose bleeds and future prevention. Medication changes while at [facility]: Please speak to your PCP about any questions you have regarding your medications. The following list may change at [facility]. Please follow their recommendations on discharge. Medications Started at [facility]: Atorvastatin 40mg once daily Thiamine 100mg once daily Oxycodone 10 mg q4h PRN Medications Stopped at [facility]: Aspirin Celecoxib Cyclobenzaprine Lisinopril Spironolactone Verapimil Tramadol Medication doses changed at [facility]: Metoprolol Succinate increased to 50mg once a day Gabapentin decreased to 300mg three times a day (dose changed because of kidney function) Thank you for choosing [facility] for your care! * Discharge Instr - Other Orders* Hyun Rosa RN - 07/20/2023 11:36 EDT Remember the acronym LOW - Diet: low salt (2000mg of sodium per day). Avoid high sodium foods. - Activity: daily moderate activity for 30 minutes - Medication administration: refer to the After Visit Summary - Everyday weight: weigh yourself daily and record in weight log - Symptom monitoring and follow though: call your doctor's office If you experience rapid weight gain (3 pounds in a day or 5 or more pounds in a week), increased shortness of breath, or increase legswelling. Be sure to check your Heart Failure Zone every day. At the time of discharge, it is expected that you will have been started on new cardiac medications. Continue these medications until advised by a doctor. New refills will be required at follow up with your primary care provider or lump room supervisor. documented in this encounter Medications at Time of Discharge Medication Sig Dispensed Refills Start Date End Date acetaminophen (TYLENOL) 325 mg tablet Take 1 Tablet by mouth 4 times daily as needed for Pain. 08/20/2023 atorvastatin (LIPITOR) 40 mg tablet Take 1 Tablet by mouth daily. 30 Tablet 08/20/2023 CEROVITE SENIOR 0.4 mg-300 mcg- 250 mcg tablet Take 1 Tablet by mouth daily. 04/04/2023 citalopram (CELEXA) 20 mg tablet Take 1 Tablet by mouth daily. cyclobenzaprine (FLEXERIL) 10 mg tablet Take 1 Tablet by mouth 3 times daily as needed for Muscle Spasms. 05/15/2023 ferrous sulfate 324 mg, 65 mg elemental, 324 mg (65 mg iron) tablet,delayed release (DR/EC) Take 1 Tablet by mouth every 48 hours. 15 Tablet 08/20/2023 gabapentin (NEURONTIN) 300 mg tablet Take 3 Tabs by mouth 3 times daily. HYDROcodone-acetaminoph en (NORCO) 10-325 mg tablet Take 1 Tablet by mouth every 6 hours. 05/30/2023 IPRATROPIUM/ALBUTEROL SULFATE (COMBIVENT INHL) Inhale 2 Puffs as directed every 4 hours as needed. lidocaine 5 % (LIDODERM) 5 % patchIndications:Other chronic pain Place 1 Patch onto the skin daily. 08/21/2023 metoprolol SUCCinate (TOPROL-XL) 50 mg tablet Take 1 Tablet by mouth daily. 30 Tablet 08/21/2023 pantoprazole (PROTONIX) 40 mg tablet Take 1 Tablet by mouth daily. 04/03/2023 polyethylene glycol 3350 (MIRALAX) 17 gram packet Take 17 g by mouth daily as needed for Constipation. 08/20/2023 senna (SENOKOT) 8.6 mg tablet Take 1 Tablet by mouth at bedtime as needed for Constipation. 08/20/2023 TAMSulosin (FLOMAX) 0.4 mg capsule Take 1 Capsule by mouth daily. 08/21/2023 topiramate (TOPAMAX) 50 mg tablet Take 1 Tablet by mouth 2 times daily. torsemide (DEMADEX) 20 mg tablet Take 2 Tablets by mouth 2 times daily at 8am and 2pm. 120 Tablet 08/20/2023 documented as of this encounter Ordered Prescriptions Prescription Sig Dispensed Refills Start Date End Da te senna (SENOKOT) 8.6 mg tablet Take 1 Tablet by mouth at bedtime as needed for Constipation. 08/20/2023 TAMSulosin (FLOMAX) 0.4 mg capsule Take 1 Capsule by mouth daily. 08/21/2023 lidocaine 5 % (LIDODERM) 5 % patchIndications:Other chronic pain Place 1 Patch onto the skin daily. 08/21/2023 polyethylene glycol 3350 (MIRALAX) 17 gram packet Take 17 g by mouth daily as needed for Constipation. 08/20/2023 acetaminophen (TYLENOL) 325 mg tablet Take 1 Tablet by mouth 4 times daily as needed for Pain. 08/20/2023 metoprolol SUCCinate (TOPROL-XL) 50 mg tablet Take 1 Tablet by mouth daily. 30 Tablet 08/21/2023 ferrous sulfate 324 mg, 65 mg elemental, 324 mg (65 mg iron) tablet,delayed release (DR/EC) Take 1 Tablet by mouth every 48 hours. 15 Tablet 08/20/2023 torsemide (DEMADEX) 20 mg tablet Take 2 Tablets by mouth 2 times daily at 8am and 2pm. 120 Tablet 08/20/2023 atorvastatin (LIPITOR) 40 mg tablet Take 1 Tablet by mouth daily. 30 Tablet 08/20/2023 empagliflozin (JARDIANCE) 10 mg tablet Take 1 Tablet by mouth daily. 30 Tablet 07/16/2023 08/20/2023 documented in this encounter Discharge Disposition Disposition Code Departure Means Destination Comment s Nursing Facility (Skilled) Skilled N ursing documented in this encounter Progress Notes * Niecy Reynolds - 08/20/2023 1116 EDT CM Discharge Note CASE MANAGEMENT DISCHARGE NOTE DISCHARGE DATE/TIME: 08/20/23 1 PM DESTINATION: [facility] (If discharging to [facility]) COVID swab ordered and completed: N/A TRANSPORTATION: Wheelchair Van with Initial Response ACCEPTING MD AND NUMBER: N/A RN REPORT/UNIT: [phone] ask for a wing nurse BID ANALYST/CHARGE/MD NOTIFIED (Y/N): yes FORMS: (Acute to acute, COLST, MOLST, TAMI, Screen, PASRR, Ambulance): COLST PASSR Discharge paperwork IM SIGNED (Y/NA): yes HOME HEALTH: N/A DME: none PHARMACY/PRESCRIPTIONS: [facility] MEDS TO BEDS UTILIZED : YES/NO no Patient and/or family who participated in discharge plan: patient Destination Confirmation: YADIRA messaged with Tavo Page, [facility] and confirmed that discharging patient at 1PM to get patient to the [facility] this afternoon was still okay for their facility. CM uploaded discharge note and PASSR at Tavo's request as well as faxed her the COLST. OTHER: CM met with patient to go over IM. Patient is excited to be getting to [facility] and planned to call his brother to see if he could bring him clothes to the [facility]. CM asked the team if thereare hospital pants the pt could travel in as the clothes he came to the hospital in are dirty. MINERVA Kingston, M. Ed. [employer] Social Work and Case Management * Darien Rivera, ABEL - 08/20/2023 1016 EDT Nursing Discharge Note D: Patient noted with discharge orders to: [facility] . A: Prescriptions e-scripted. Reviewed discharge instructions and prescriptions with Patient and facility IV d/c'd. Belongings collected and sent home with patient. Report called to RN at [facility] . R: Patient verbalized understanding of discharge instructions and denied further questions. Darien RIVERA RN 08/20/2023 13:00 * Fredy Ramachandran, ABEL - 08/17/2023 0539 EDT Alternative Level of Care Patient Progress Note ORIENTATION: person, place, and time Isolation Needs: None Meal Assist Needed : needs setup at meals 1:[address]? Yes/No Comment reason: No Mobility: Independent Activities participated in: SHIFT UPDATE Data: Assumed pt care @1900. Pt AAOX3,VSS, on room air, and been c/o pain specifically right sided,MD aware. Able to use call light appropriately. Action: Due meds given per MAY. Notifed MD for pain issues. Oxycodone x1 ordered and given. Hourly rounds completed. Clustered care provided. Response: Resting comfortably with no acute changes noted. * Mercy Kim, PT - 08/16/2023 1420 EDT ADDENDUM: This addendum is intended as a Therapy Discharge Summary due to unplanned discharge of the patient.The information documented below this addendum was current at the time of last visit. Progress and patient response to treatment since the last progress note are summarized below. OBJECTIVE: In this reporting period 08/04/23 to today, the patient has been seen for therapy services. Therapyis discontinued at this time as the patient has been discharged from the hospital.. Relevant objective findings: see below ASSESSMENT: Unable to assess current status as the patient was not seen for any additional therapy sessions. Patient response to treatment and goal status at time of last visit: see below Short-Term Goals: n/a Long-Term Goals: 2-4 weeks The patient will be able to perform bed mobility with modified independence demonstrating appropriate sequencing/motor planning. Goal not readdressed, pt up in chair at each treatment The patient will be able to perform transfers with modified independence while demonstrating an effective strategy for recovery of loss of balance. Goal met The patient will be able to ambulate with modified independence with no loss of balance on level surfaces >/= 250 feet with/without assistive device as needed. Goal met for distant supervision Pt to remain hemodynamically stable with above activities goal not met consistently Pt to ascend/descend >/= 3 stairs with home set-up if needed for discharge. Goal met The patient and/or caregiver will be aware of the PT recommendations provided and verbalize and/or demonstrate understanding of the recommendations. Goal met PLAN: Discontinue therapy. We would be happy to see this patient in the future with a new referral. Mercy Kim, PT 08/20/23 17:11 [facility] Acute Therapies [facility] Physical Therapy Encounter Note Date of Service: 08/16/2023 Subjective/Objective Subjective My hip really bugs me Objective Intervention completed today: Time: 1145 Total care time: 25 minutes. Timed code treatment minutes: n/a BP checked at end of session 110/70's due to hypotensive slightly after last tx. Pt without symptoms throughout session. Pt found in solarium. Appeared to recognize this web content writer from last visit (which is an improvement). Pt observed up amb in hallway, no overt LOB, very wide base of support, and slow gait with limited foot clearance noted not device utilized. Pt amb with this web content writer x ~300', slow speed, with gait pattern as noted above. Less fatigue than noted previously. Distance: 6.1m Time: 0.885 sec. Gait speed: 0.69m/sec (on 08/10/23-pt's gait speed was 0.63m/sec) Gait Speed^ assesses walking speed over an established distance. Age/gender normative values for comfortable walking speed (Elias, 2011) Age Mean 95% CI meters/second Male Female 20-29 1.21-1.47 1.08-1.49 30-39 1.31-1.53 1.25-1.41 40-49 1.27-1.47 1.22-1.42 50-59 1.12-1.49 1.10-1.55 60-69 1.03-1.59 0.97-1.45 70-79 0.95-1.41 0.83-1.50 80-89 0.61-1.22 0.56-1.17 Patients (age 65 and older) who are hospitalized with a gait speed < 0.4 meters/second had significantly decreased odds of discharge to home compared to patients with a gait speed > 0.6 meters/second (Earlene, 2012). A cutoff score of < 0.7 meters/second for healthy older adults (>= 75 years) is indicative ofincreased risk of adverse events (fall, hospitalization, need for caregiver, fracture) (Lopez, 2005). The minimal clinically important difference (MCID) for community-dwelling elderly is 0.05 to 0.13 meters/second (Perara, 2006). The Dynamic Gait Index (DGI)^ assesses an individual???s ability to modify balance while walking inthe presence of external demands. 1. Gait level surface 2/3 2. Change in gait speed 2/3 3. Gait with horizontal head turns 2/3 4. Gait with vertical head turns 3/3 5. Gait and pivot turn /3 6. Step over obstacle 2/3 7. Step around obstacle 3/3 8. Steps 1/3 (stairs assessed last session-not repeated today) Total score 18/24 A score of < 19/24 is a conservative estimate of patients at higher risk for falling and a strong indicator of patients who have fallen in the previous months. [ages 65 to 81, 67% sensitivity and 86% specificity] (Adrian, 2010) [ages 65 to 94, 59% sensitivity and 64% specificity] (Ismael, 1997) The minimal detectable change (MDC) for community-dwelling elderly (59 years old and older) with a history of falls is 2.9. (Toy, 2011). Pt left up in room-awaiting lunch. Pt declined further tx, citing pain in hip. Declined use of SPC. Patient/Family Education: Topic: Activity pacing/Energy conservation Assistive device/technique Balance Equipment use Gait Role of therapy Safety Transfers Learner: patient Method: verbal and demonstration Barriers to Learning: cognitive deficits Outcome: requires assist and needs practice Team Communication: Assessment/Plan Assessment Pt's gait speed has improved a little. Pt still with impaired balance, placing him at fall risk. Ptstill with significantly edematous feet. ??if he would be open to utilizing tubigrip for mild compression. He has declined bal hose in the past. Pt with possible [facility] offer on Sunday, which remains appropriate. Pt with continued cognitive deficits with decreased memory. Plan Continue per plan of care Recommended Discharge Destination: Sub-acute rehabilitation Recommended Discharge Services: Physical therapy at rehabilitation facility Recommended Equipment Needs: To be determined by next care provider Other recommendations: No other consults recommended at this time Pager: [phone] Mercy Kim, PT 08/16/2023 21:40 * Madonna Husain, RD - 08/16/2023 7961 EDT Nutrition Assessment Note: Reassessment BACKGROUND DATA Subjective: Patient busy with PT and then sleeping when interview attempted X 2. Current Nutrition Orders: Diet-Heart Healthy, 4 g Na, 2000 ml fluid restriction--nutrition offering milk TID with meals and custard BID with lunch and dinner daily --Menu Assist dc'd 08/03 Nutrition Focused Physical Exam Incomplete Physical Findings: Digestive Systems: Last BM 08/13/23 Dentition: Teeth: Dentures upper per flowsheets Edema: +3 pitting lower extremities Skin: blanchable redness; MASD/IAD Allergies on file: Clonidine Anthropometrics: Height: 182.9 cm (72.01) Wt Readings from Last 6 Encounters: 08/09/23 67.8 kg (149 lb 7.6 oz) Weights Filed This Admission 06/25/23 1340 06/28/23 0900 06/29/23 1333 06/30/23 0815 Weight: 80.3 kg (177 lb) 80.3 kg (177 lb) 80.2 kg (176 lb 12.9 oz) 80.7 kg (177 lb 14.6 oz) 07/02/23 0949 07/02/23 1410 07/04/23 1011 07/06/23 0600 Weight: 81 kg (178 lb 9.2 oz) 80 kg (176 lb 5.9 oz) 80 kg (176 lb 5.9 oz) 70.2 kg (154 lb 12.2 oz) 07/06/23 0923 07/09/23 0611 07/10/23 0553 07/12/23 0548 Weight: 70.2 kg (154 lb 12.2 oz) 60.1 kg (132 lb 7.9 oz) 60 kg (132 lb 4.4 oz) 60.1 kg (132 lb 7.9 oz) 07/17/23 0929 07/18/23 0448 07/19/23 0415 07/19/23 0936 Weight: 59.9 kg (132 lb) 66.2 kg (145 lb 15.1 oz) 66.3 kg (146 lb 2.6 oz) 66.2 kg (146 lb) 07/20/23 0600 07/21/23 0444 07/22/23 0500 07/23/23 0515 Weight: 71.7 kg (158 lb 1.1 oz) 67.9 kg (149 lb 11.1 oz) 68.6 kg (151 lb 3.8 oz) 68.9 kg (151 lb 14.4 oz) 07/24/23 0600 07/25/23 0431 07/25/23 0600 07/27/23 0645 Weight: 68 kg (149 lb 14.6 oz) 66 kg (145 lb 8.1 oz) 64.8 kg (142 lb 13.7 oz) 69 kg (152 lb 1.9 oz) 07/28/23 0603 07/30/23 0506 08/01/23 0646 08/03/23 0644 Weight: 69.9 kg (154 lb) 68.6 kg (151 lb 4.8 oz) 65.8 kg (145 lb) 68.7 kg (151 lb 6.4 oz) 08/04/23 1623 08/09/23 0900 Weight: 70.4 kg (155 lb 4.8 oz) 67.8 kg (149 lb 7.6 oz) BMI: 20.27 Pertinent Medications: Current Facility-Administered Medications Medication Route Frequency acetaminophen (TYLENOL) tablet 325 mg oral QID PRN atorvastatin (LIPITOR) tablet 40 mg oral DAILY blood thinner patient education booklet 1 Each other Once (Without Time Specified) citalopram (CELEXA) tablet 20 mg oral DAILY diclofenac sodium gel 2 g topical BID PRN Dimethicone-Zinc Oxide 20-25 % spray,non-aerosol topical BID diphenhydrAMINE-zinc acetate 2-0.1 % cream topical TID PRN enoxaparin (LOVENOX) injection 40 mg subcutaneous DAILY ferrous sulfate 324 mg (65 mg elemental) EC tablet 324 mg oral Q48H fluconazole (DIFLUCAN) tablet 200 mg oral DAILY WITH DINNER folic acid (FOLVITE) tablet 1 mg oral DAILY gabapentin (NEURONTIN) capsule 300 mg oral TID HYDROcodone-acetaminophen (NORCO) 10-325 mg tablet 1 Tablet oral QID ketoconazole (NIZORAL) 2 % cream topical DAILY lidocaine (PF) 10 mg/mL (1 %) injection 2 mg intradermal PRN lidocaine 5 % (LIDODERM) patch 1 Patch transdermal DAILY lidocaine 5 % (LIDODERM) patch 1 Patch transdermal DAILY metoprolol SUCCinate (TOPROL-XL) tablet 50 mg oral DAILY jylunspu-rjr-mifz fum-folic ac 7.5 mg iron-400 mcg tablet 1 Tablet oral DAILY pantoprazole (PROTONIX) tablet 40 mg oral DAILY petrolatum (AQU[employer]ALING) 41 % ointment topical DAILY polyethylene glycol 3350 (MIRALAX) packet 17 g oral Daily PRN ramelteon (ROZEREM) tablet 8 mg oral QHS senna (SENOKOT) tablet 1 Tablet oral AT BEDTIME PRN thiamine (VITAMIN B1) tablet 100 mg oral DAILY topiramate (TOPAMAX) tablet 50 mg oral Q12H torsemide (DEMADEX) tablet 40 mg oral BID (0800 & 1400) white petrolatum 42 % ointment topical TID Pertinent Labs: Lab Results Component Value Date/Time NA 139 08/16/2023 09:10 K 3.9 08/16/2023 09:10 CO2 30 08/16/2023 09:10 CL 94 (L) 08/16/2023 09:10 BUN 40 (H) 08/16/2023 09:10 CREATININE 1.88 (H) 08/16/2023 09:10 GLUCOSEPOC 115 (H) 08/04/2023 08:12 CALCIUM 9.6 08/16/2023 09:10 PHOS 4.6 (H) 07/18/2023 04:38 MG 1.8 08/15/2023 08:49 Lab Results Component Value Date/Time HGB 10.5 (L) 08/15/2023 08:49 HCT 31.5 (L) 08/15/2023 08:49 IRON 32 (L) 07/23/2023 05:15 TIBC 341 07/23/2023 05:15 MCV 93 08/15/2023 08:49 FERRITIN 42 07/23/2023 05:15 LABIRON 9 (L) 07/23/2023 05:15 Estimated Nutrition Needs: 25-30 kcal/kg (using 70.2 kg) = [id number] kcals/day 1.2 g/kg protein (using 70.2 kg) = 85 g protein/day Fluid per medical team discretion Estimated Nutrition Intake: 75 % of meals ASSESSMENT: Patient appears to be eating reasonably well at this time per chart review. Nutrition is offering custard and milk with meals as source of additional calories/protein. Patient was removed from menu assist due to inappropriate interaction with menu assist staff. He may require assist/cues from nursing at times to order meals at regular times each day. Patient presently ordering 3 full meal trays daily. Recommend liberalize fat restricted diet to due marginal po intake. Patient on appropriate vitamin/mineral supplements. Nutrition Risk Level: Low (3) MEDICAL NUTRITION THERAPY - UPDATED PLAN -Recommend d/c heart healthy diet and order Low sodium diet(specify 4 g Na restriction and 2000 ml fluid restriction) -Nutrition offering milk TID with meals and custard BID with lunch and dinner daily -Patient no longer a candidate for menu assist; Nursing please encourage patient to order 3 meals daily -Trend weights -Monitor po intake, stool patten and skin -RD following Madonna Husain RD, CD (Call PAS or use [employer]) to page RD covering this unit) * Shanthi Sen MD - 08/15/2023 1114 EDT MEDICINE PROGRESS NOTE Service Date: 08/15/23 Admit Date: 06/25/2023 13:23 Reason for Admission: 68 y.o. male with prolonged hospital course following cardiogenic shock related to toxic shock syndrome, awaiting AR[facility] with ongoing treatment of persistent candiduria. 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 Asks if he can go back to 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 norco. Occasional dysuria still but less frequent than it was before starting fluconazol. Will discuss apixaban with PCP Dr Guzman. Planning for AR[facility] Sunday, hopeful it will be a short stay. He was unsure what happened during this admission. He stated later on that he was going home on Sunday. OBJECTIVE Vital Signs: Temp: [36.5 ??C (97.7 ??F)] , Heart Rate: --, Resp: [16] , BP: (95)/(72) , SpO2: [98 %] Physical Exam: General: NAD, sitting upright in recliner Resp: Breathing comfortably on RA Abdomen: Soft, non-tender, non distended : Improving erythematous rash on testes and bilateral groin Extremities: left medial thigh hematoma improving. B/l 1+ pitting to the tibial plateau. Neuro: A&Ox3 Labs: CBC: Recent Labs 08/13/23 1431 08/15/23 0849 WBC 11.85* 8.79 RBC 3.43* 3.39* HGB 10.5* 10.5* HCT 31.7* 31.5* MCV 92 93 MCH 30.6 31.0 MCHC 33.1 33.3 PLT 319 320 BMP: Recent Labs 08/13/23 1431 08/15/23 0849 NA 135* 136 K 4.2 3.7 CL 96 93* CO2 22 30 BUN 37* 39* CREATININE 1.86* 2.13* CALCIUM 9.2 9.5 MG 1.7 1.8 Imaging: None ASSESSMENT Derrick Hobson is a 68 y.o. male with a PMHx notable for HFrEF, Afib, COPD, and treated Hep C as a transfer from [facility] to [facility] on 06/25/23 with epistaxis, but ultimately found to be in multiorganfailure secondary to mixed cardiogenic/distributive shock and transferred here for consideration ofRRT. Prolonged hospital course complicated by hypotension, new severe systolic heart failure, AHRF,electrolyte derangements, shock liver, and oliguric acute kidney failure, last HD session 07/05. Currently accepted at [facility] with expected discharge on 08/19. Treating symptomatic candiduria with fluconazole so will defer initiation of apixaban for Afib until that course is complete, have discussed CHADS-VASC and HAS-BLED risks with patient and he would like to discuss this with his PCP Dr. Guzman. Was on aspirin before and may favor continuing that route with his history of nosebleeds. PLAN Symptomatic Candiduria Tinea Cruris in Groin Dysuria starting ~07/31. Symptoms did not respond to bactrim. UA showing persistent candiduria (first noted on 07/05) - Urine culture collected 08/05 growing yeast - Hold empagliflozin starting 08/04 - Fluconazole 200mg (renal adjusted dose) 08/05-08/19 - Ketoconazole 2% cream once daily Heart failure with improved ejection fraction (EF 20-25% --> 40%) Mixed cardiogenic/distributive shock, resolved JOS with concern for new CKD: EF improved significantly from 20% on admission to 40% on 06/27, to 35-40% on 07/16. NM SPECT stress test 07/18 with fixed defect of the RCA - no indication for revascularization. - goal SBP 120-160, heart rate <100 per cardiology - Atorvastatin 40mg daily - Torsemide 40 mg BID, will hold this evenings dose and recheck creatinine tomorrow and adjust doseaccordingly - Titration of GDMT - metoprolol succinate 50 mg daily - Hold/d/c empagliflozin 10 mg daily starting 08/04 with persistent candiduria - hold losartan given elevated potassium and soft BP/intolerance to quad GDMT therapy - f/u with outpatient cardiology for HF at discharge Costochondritis Left anterior ribs tender to palpation, unclear trigger, has been progressing for a few weeks. -Lidocaine patch Chronic anemia Anemia panel labs most consistent with at least a component of JANUSZ, likely multifactorial. S/p 500 mg IV iron sucrose 07/23/2023 and 07/28 - Likely intermittent IV iron sucrose every ~5-7 days while remains hospitalized for goal ~1500 mg total - Continue oral iron supplement daily Persistent Afib (with RVR, resolved) Recurrent left inguinal/thigh hematoma, stabilized since 07/24 Recurrent epistaxis, dormant since 08/04 Has not recently been on AC outpatient due to epistasxis, has been plagued with recurrent epistaxisPTA and prompting this current admission. CHADSVASc score is 4. HAS-BLED score is 2. 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 All meds and food PO. - Nutrition following - Mighty shakes TID, magic cups BID - Cardiac diet CHRONIC/STABLE/RESOLVED: AHRF 2/2 hospital acquired pneumonia, resolved: s/p pip-tazo (end 07/13) Mood disorder: 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 citalopram 20 mg ?Neuropathic pain: 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 gabapentin 800mg TID restarted 07/11 at renally adjusted dose COPD: 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 duonebs PRN Polysubstance use disorder: hx cocaine use, ?EtOH disorder, ?opioid use Acute toxic metabolic encephalopathy, resolved; concern for underlying MCI but unable to determine acutely inpatient - Delirium precautions R wrist drop-Prompted stroke code, MRI normal, now full strength, suspect compression neuropathy CHECKLIST: Consults: None Diet: Cardiac VTE Prophylaxis: Lovenox 40mg daily Code status: Limitation of Treatment DNR Do not intubate (DNI) Discharge Plan: Accepted at [facility] 08/19 SHANTHI SEN MD 08/15/23 11:14 Associated attestation - Wilber Ho MD - 08/15/2023 1314 EDT Attending Attestation I interviewed and examined the patient. I have personally reviewed interval events, laboratory data, and imaging. I discussed the case with the inpatient resident team. I agree with findings and planof care as documented by the resident (or have edited in underline). Total unit time I spent in care of patient today: 50 minutes Wilber Ho MD 08/15/2023 13:07 * Niecy Reynolds - 08/14/2023 1232 EDT [facility] Department of Case Management and Social Work Case Management Progress Note Patient Name Level of Care and Accommodation Code: Patient Class: Medically Ready: Y/N Derrick Hobson Acute Mcfp Level 1 Inpatient yes Primary Dx: Decisional Capacity: Y/N Primary Support/ CareGiver: Advance Directive Cardiogenic shock ([facility]) yes Supports:siblings Advance Directives (For Healthcare) Healthcare Directive: No, patient unable to respond due to condition Information Provided on Healthcare Directives: No Information on Healthcare Directives Requested: No Disposition Information Appropriate to transfer back: Y/N Length of Stay (in days): Estimated Date of D/C: LTC Medicaid Status: [facility] did not accept transfer 50 TBD awaiting AR[facility] Bed No Primary Care Provider: AR/ARAMIS/SNF referred: Y/N Bed Offers: Y/N Escalated to Leadership: Y/N Davian Guzman yes yes yes Mobility Level: Recommended D/C Location Payor: Bedside Mobility Assessment Tool (BMAT) Bedrest or non-weight bearing orders?: No Assessment Level 1-Sit & Shake: Pass Assessment Level 2-Stretch & Point: Pass Assessment Level 3-Stand: Pass Assessment Level 4-Step: Pass Mobility level determined: Mobility Level 4 use gait belt, walker, crutches, cane, prosthetic(s) Number of caregivers reccommended: 1 Number of caregivers used: 1 Recommended Discharge Destination PT Recommended Discharge Destination: Subacute rehabilitation Payor: MEDICARE / Plan: MEDICARE A/B / Product Type: Medicare GL / Barriers to Discharge AR[facility] placement- bed not available until 08/20/23 [facility] offered pt a [facility] bed. Pt accepted. [facility] in not able to offer a bed until 08/20/23. CM will continue to coordinate this discharge plan. CM called and left Sri Trevino at [facility] a message letting her know about this bed offer and discharge date. E-Signature MINERVA Kingston, MShanti Ed. Bark Fitter II Social Work and Case Management 08/14/23 12:32 * Paulina Wallace, PT - 08/14/2023 0732 EDT [facility] Rehabilitation Therapy Acute Therapies [facility] Physical Therapy Encounter Note Date of Service: 08/14/2023 Subjective/Objective Subjective I don't know if I like the cane Objective Intervention completed today: Time: 10:30 Total care time: 40 minutes. Timed code treatment minutes: n/a Pt received up in chair, willing to work. Therapeutic Activity: Edema: BLE 2+ edema Transfers; Sit <> stand from recliner chair with modified independence Ambulation 400 feet total during session with no assistance and no loss of balance. Wide base of support and slow gait with limited foot clearance. He is variable with his use of cane and his reported need for cane. He starts by stating that he does not feel he needs the cane, but uses it consistently with each step. Later is session he is holding cane in air and not using properly but moves toward rails in hallway for support. Cues are provided for optimal use of device but these are not consistently utilized. Patient with 1 seated rest break and multiple self-selected standing rest breaks. Stairs: Up/down 8 steps with rail with LUE and SPC in RUE with close supervision. Patient provided cues forstep to gait for improved quality of movement and pacing. He utilizes this when cues are provided. Coming down he is provided brief hands on assist due to feeling dizzy. Symptoms: brief and fluctuating reports of dizziness, double vision and plugged ears during session. Pre activity BP 105/73 and with return to room, vitals were monitored with BP 82/57 and then reclined in chair 86/59. He had no symptoms when these measurements were taken. Patient/Family Education: Topic: Assistive device/technique Balance Equipment use Exercise Gait Positioning Role of therapy Safety Stairs Transfers Learner: patient Method: verbal and demonstration Barriers to Learning: cognitive deficits Outcome: requires assist and needs practice Team Communication: Pt status discussed with nursing after treatment session Assessment/Plan Assessment mobility status today is similar to last session. He is demonstrating the basic mobility necessary for in-home mobility but concerns over danilo to dusk endurance with all needs and need for intermittent assistance. Also concern for activity tolerance are fluctuating intermittent symptoms noted above. OT has also identified cognitive concerns for safety with independent living. Ideally assisted living or care in his home and ongoing rehab at this time until good post hospital discharge plan determined. Continue to recommend daily ambulation in hallways with nursing 2-3 times a day to build activity tolerance. Plan Continue per plan of care Recommended Discharge Destination: Sub-acute rehabilitation, and See assessment above Recommended Discharge Services: Continued therapy Recommended Equipment Needs: To be determined Other recommendations: No other consults recommended at this time Pager: [phone] Paulina Wallace, PT 08/14/2023 7:32 * Niecy Reynolds - 08/13/2023 1306 EDT [facility] Department of Case Management and Social Work Case Management Progress Note Patient Name Level of Care and Accommodation Code: Patient Class: Medically Ready: Y/N Derrick Hobson Acute Mcfp Level 1 Inpatient yes Primary Dx: Decisional Capacity: Y/N Primary Support/ CareGiver: Advance Directive Cardiogenic shock (HCC-CMS) yes Supports:siblings Advance Directives (For Healthcare) Healthcare Directive: No, patient unable to respond due to condition Information Provided on Healthcare Directives: No Information on Healthcare Directives Requested: No Disposition Information Appropriate to transfer back: Y/N Length of Stay (in days): Estimated Date of D/C: LTC Medicaid Status: [facility] did not accept transfer 49 TBD awaiting ARAMIS Bed No Primary Care Provider: AR/ARAMIS/SNF referred: Y/N Bed Offers: Y/N Escalated to Leadership: Y/N Davian Guzman yes no yes Mobility Level: Recommended D/C Location Payor: Bedside Mobility Assessment Tool (BMAT) Bedrest or non-weight bearing orders?: No Assessment Level 1-Sit & Shake: Pass Assessment Level 2-Stretch & Point: Pass Assessment Level 3-Stand: Pass Assessment Level 4-Step: Pass Mobility level determined: Mobility Level 4 use gait belt, walker, crutches, cane, prosthetic(s) Number of caregivers reccommended: 1 Number of caregivers used: 1 Recommended Discharge Destination PT Recommended Discharge Destination: Subacute rehabilitation Payor: MEDICARE / Plan: MEDICARE A/B / Product Type: Medicare GL / Barriers to Discharge AR[facility] placement Plan CM updated notes in [facility] and messaged [facility] as last week they had messaged saying they wouldn't have a male bed available until this week. CM will continue to watch for a response. CM will continue to monitor the clinical notes, meet with the tt, and regularly check in with the patient throughout their hospital stay to ensure a safe discharge. E-Signature MINERVA Kingston M. Ed. Bark Fitter II Social Work and Case Management 08/13/23 13:06 * Mica Hoang - 08/13/2023 1150 EDT Images from the original note were not included. [facility] Rehabilitation Therapy [facility] - ADDENDUM: This addendum is intended as a Therapy Discharge Summary due to unplanned discharge of the patient.The information documented below this addendum was current at the time of last visit. Progress and patient response to treatment since the last progress note are summarized below. OBJECTIVE: In this reporting period 08/05 to today, the patient has been seen for therapy services. Therapy is discontinued at this time as the patient has been discharged from the hospital.. ASSESSMENT: Unable to assess current status as the patient was not seen for any additional therapy sessions. Patient response to treatment and goal status at time of last visit: see below Short-Term Goals: 2-4 weeks Patient will be: modified independent with toilet transfer DISCONTINUE Patient will be: modified independent with shower and shower transfer DISCONTINUE Patient will be: modified independent with LE dressing MET Patient will be modified independent with household functional mobility DISCONTINUE Patient will be agreeable to OT intervention 90% of the time DISCONTINUE Long-Term Goals: 4-6 weeks Patient will be modified independent with kitchen task Discontinue Patient will verbalize understanding of safe discharge recommendations Discontinue Patient will verbalize understanding of 2 fall prevention and energy conservation strategies Discontinue Patient will be modified independent with medication management Discontinue Patient will be modified independent with laundry Discontinue PLAN: Discontinue therapy. Mica Gomezkeeley 08/21/23 8:02 Occupational Therapy Encounter Note Date of Service: 08/13/2023 Subjective/Objective SUBJECTIVE: Would you please give me privacy to rinse and dry off Pt found in shower room unsupervised. OBJECTIVE: Time: 10:15 Total treatment time: 75 minutes. Timed code treatment minutes: N/A Interventions included: Self-Care/Home Management: Cues provided to bring awareness to wet floor when completing post-shower ADLs including drying off, dressing, and grooming. Pt demonstrated increased work of breathing when donning gown, decreased orientation to donning gown. Pt required max assist for tying the gown in the back, however independently donned arms and snaps with increased time and effort. Pt recognized incorrect sock size, requested the proper socks, and donned them independently with 1x cue to be seated on a shower bench to conserve energy. MoCA Visuospatial/executive Clock Draw Cognition: MoCA cognitive screen administered. Pt scored 16/30 and MIS = 6/15 indicating a mild cognitive impairment. The Summit Cognitive Assessment (MoCA)^ is a rapid screening tool for detectionof mild cognitive impairment (MCI). It assesses 7 domains and the score range is 0-30. Version 8.1 was performed today. Domain Score Visuospatial/Executive 2/5 Naming 3/3 Memory No score Attention 4/6 Language 1/2 Abstraction 1/2 Delayed Recall 0/5 Orientation 6/6 Memory Index Score 6/15 Total Score 16/30 Comments: Pt became agitated towards the end of the screen, required redirection to continue with and finish A total score of <26 is considered indicative of MCI (Crow, 2005). Memory Index Score (MIS) of <7 is considered abnormal (Francy, 2005). Discussion led on cognition and how this impacts readiness for discharge. Pt continues to report cognitive decline, aware of his deficits. Pt reported decreased memory, processing, and attention, pt noted mild impairments prior to admission. Grooming: Modified [place] seated on shower bench Bathing: Modified [place] using shower chair as needed and bending forward. Pt demonstrated increased rate of breathing during activity and reported lightheadedness/dizziness, and bent forward resting elbows on knees during this report. UE dressing: Min contact assist Stand to Sit: Modified independent using recliner chair arms to lower self at a steady pace Functional mobility: Supervision with no device, pt presumed to ambulate from room to shower room without supervision, however supervision was provided on the way back to his room from the shower room due to slightly unsteady gait. Found room without cues. Standing balance: static and dynamic balance observed. Pt able to correct unsteadiness and use a wider base of support. Pt recognized slippery floor after initial cue in shower room post-shower, and adjusted his plan to remain seated until socks donned to ensure safety. Discharge planning: Below information obtained due to not being able to complete at evaluation: Lives in an apartment with ~17 stairs to enter with no elevator available. Discontinued driving a few years ago. Equipment available include grab bars in bathroom and shower chair Pt reports receiving assist with shopping, cleaning, and cooking prior to admission from nephew andfriends. Neighbor provides meals from time to time. Reports not managing his medications well prior to admission. The patient was left in: recliner chair With the: Call larson in reach, however as therapists left room he ambulated with cane to doorframe Vital signs: Vital signs were not monitored. Patient/Family Education: Topic: Compensatory strategies Role of OT D/C planning Safety awareness Learner: patient Method: verbal Barriers to Learning: cognitive deficits Outcome: verbalized understanding and reinforcement needed / plan: high repetition of education topics to ensure discharge readiness Team Communication: Notified:Nurse By:Face to face communication When:Prior to therapy During therapy After therapy About:Readiness for therapy and Response to therapy Assessment/Plan ASSESSMENT: Derrick continues to present with behavioral challenges impacting participation with therapy. Additionally, pt presents with and reports decreased memory, processing, attention, and tunnel vision. MoCA 8.1 performed today with patient scoring 16/30, indicating cognitive impairment. Pt exhibited difficulty with visuospatial/executive functioning, memory, attention, language, abstractio n, and delayed recall. Despite insight into cognitive deficits, pt demonstrates decreased safety awareness/judgement by ambulating without permission/supervision to the shower room and taking a shower. Derrick continues to be recommended for ARAMIS to promote function and encourage safety. Patient inquiring about returning home; if patient returns home he would require maximal supports including assistance with higher level cognitive/mobility tasks: patient financial rep, med management, home safety including cooking and cleaning, transportation, and shopping. Pt would also require home health OT/PT. Pt reports prior assistance with cooking, cleaning, and groceries and would need to obtain supports for additional IADLs noted. Appreciate case management involvement for confirmation of assist level. If appropriate assist at home cannot be provided, then patient would require a more supportive environment ([facility]). PLAN: Continue per plan of care Recommended Discharge Destination: See Assessment above - would still benefit from ARAMIS Recommended Discharge Services: OT at discharge location Recommended Discharge Equipment: Cane, Rolling walker Mica Hoang, 08/13/2023, 13:26 * Flaquita Benavidez MD - 08/11/2023 1256 EDT MEDICINE PROGRESS NOTE Service Date: 08/12/23 Admit Date: 06/25/2023 13:23 Reason for Admission: 68 y.o. male with prolonged hospital course following cardiogenic shock related to toxic shock syndrome, awaiting ARAMIS with ongoing treatment of persistent candiduria. Significant 24-hour events: - Arm discomfort, EKG w/o ST deviation though QTC 520 SUBJECTIVE Still having dysuria with fluconazole, chest/arm pain resolved. Feels legs getting smaller. OBJECTIVE Vital Signs: Temp: [36.5 ??C (97.7 ??F)-36.9 ??C (98.5 ??F)] , Heart Rate: [91 BPM-99 BPM] , Resp: [12-18] , BP:(92-118)/(65-78) , SpO2: [97 %-100 %] Physical Exam: General: NAD, sitting upright in recliner Cardiac: RRR, S1+S2 normal, no murmur Resp: Breathing comfortably on RA, crackles in R base that resolve after 1 deep breath Abdomen: Soft, non-tender, non distended : Erythematous rash on testes and bilateral groin Extremities: left medial thigh hematoma improving. B/l 2+ pitting to the tibial plateau. Neuro: A&Ox3 Labs: CBC: No results for input(s): WBC, RBC, HGB, HCT, MCV, MCH, MCHC, PLT, NEUTROABS, SEDRATE in the last 72 hours. BMP: Recent Labs 08/10/23 1046 08/11/23 1042 08/12/23 0853 NA 138 136 -- K 3.9 3.7 -- CL 100 99 -- CO2 22 20* -- BUN 32* 33* -- CREATININE 1.94* 1.88* -- CALCIUM 9.3 9.2 -- MG 1.8 1.8 1.8 Imaging: None ASSESSMENT Derrick Hobson is a 68 y.o. male with a PMHx notable for HFrEF, Afib, COPD, and treated Hep C as a transfer from [facility] to [facility] on 06/25/23 with epistaxis, but ultimately found to be in multiorganfailure secondary to mixed cardiogenic/distributive shock and transferred here for consideration ofRRT. Now with prolonged hospital course complicated by hypotension, new severe systolic heart failure, AHRF, electrolyte derangements, shock liver, and oliguric acute kidney failure. Now with significant improvements in mental status and kidney function, with last HD session 07/05. Now focusing on titration of GDMT, initiation of maintenance diuretic, and regaining strength. Candiduria now symptomatic, treating with fluconazole. PLAN Acute b/l LE edema B/L scrotum pain and swelling- improved New onset since 07/29 afternoon. U/S scrotum 07/30 showed left hydrocele and epididymal cyst and incidental finding of scrotal monique. NT-proBNP markedly reduced from 28,000 to 3,000. No proximal vascular lesion contributing to lower extremity swelling per CT A/P 08/02. No evidence of scrotal edema or pain since 08/03. - B/L LE venous ultrasounds without evidence of clots in legs - Short-term oxycodone 10 mg IR every 4 hours as needed for pain management Symptomatic Candiduria Tinea Cruris in Groin Dysuria starting ~07/31. Symptoms did not respond to bactrim. UA showing persistent candiduria (first noted on 07/05) - Urine culture collected 08/05 growing yeast - Hold empagliflozin starting 08/04 - Started Fluconazole 200mg x 2 weeks (renal adjusted dose) 08/05 - oncoming team will need to renew - Ketoconazole 2% cream once daily Prolonged Qtc - on fluconazole - Daily Mg levels (replete w/ PO per pt preference) Heart failure with improved ejection fraction (EF 20-25% --> 40%) Mixed cardiogenic/distributive shock, resolved EF improved significantly from 20% on admission to 40% on 06/27, to 35-40% on 07/16. NM SPECT stress test 07/18 with fixed defect of the RCA - no indication for revascularization. - goal SBP 120-160, heart rate <100 per cardiology - Atorvastatin 40mg daily - Torsemide 40 mg BID - Titration of GDMT - metoprolol succinate 50 mg daily - Hold empagliflozin 10 mg daily starting 08/04 with persistent candiduria - hold losartan given elevated potassium and soft BP/intolerance to quad GDMT therapy - f/u with outpatient cardiology for HF at discharge Costochondritis Left anterior ribs tender to palpation, unclear trigger, has been progressing for a few weeks. -Lidocaine patch New onset R wrist drop - resolved Last confirmed normal 08/02, now almost back to baseline. Hx of Afib not on 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 apixaban, but unlikely embolic stroke following negative CT head and neck, non-con MR 08/03. Leading Ddx includes peripheral R radial/nerve injury/compression vs conversion disorder. Chronic anemia Anemia panel labs most consistent with at least a component of JANUSZ, likely multifactorial. S/p 500 mg IV iron sucrose 07/23/2023 and 07/28 - Likely intermittent IV iron sucrose every ~5-7 days while remains hospitalized for goal ~1500 mg total - Continue oral iron supplement daily Recurrent left inguinal/thigh hematoma, stabilized since 07/24 Records indicate left inguinal A-line placed at [facility] prior to transfer. No left SFA hematoma while in the MICU status post prior CTA and ultrasounds. 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 History of cocaine use. Treated with multiple Rhino Rocket's requiring current admission. Reports undergoing left nares cauterization in the past - Petroleum jelly to nares twice daily for moisturization - Discussed with ENT, recommended against acute intervention while hospitalized - recommend outpatient follow-up - Consider AC sparing approaches such as Watchman for Afib Persistent Afib (with RVR, resolved) Has been plagued with recurrent epistaxis 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 and prompting this current admission. CHADSVASc scoreis 4. HAS-BLED score is 2. Was not taking AC OP - Rate control with metoprolol as above - Discussed risk/benefit of DOAC, patient would like to restart. D/t interaction with fluconazole, will start after course complete Severe protein calorie malnutrition NG removed 07/14. All meds and food PO. - Nutrition following - Mighty shakes TID, magic cups BID - Cardiac diet CHRONIC/STABLE/RESOLVED: AHRF / hospital acquired pneumonia, resolved: s/p pip-tazo (end 07/13) Mood disorder: 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 citalopram 20 mg ?Neuropathic pain: 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 gabapentin 800mg TID restarted 07/11 at renally adjusted dose COPD: 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 duonebs PRN Polysubstance use disorder: hx cocaine use, ?EtOH disorder, ?opioid use Acute toxic metabolic encephalopathy, resolved: delirium precautions CHECKLIST: Consults: None Diet: Cardiac VTE Prophylaxis: Lovenox 40mg daily Code status: Full Code Discharge Plan: Currently needs ARAMIS, working with PT, OT con for c/f safety awareness Flaquita Benavidez MD Internal Medicine, PGY-2 pager [phone] 08/12/23 14:35 Associated attestation - Eli Ferreira MD - 08/12/2023 0877 EDT Attending Attestation I interviewed and examined the patient. I have personally reviewed interval events, laboratory data, and imaging. I discussed the case with the inpatient resident team. I agree with findings and planof care as documented by the resident (or have edited in blue). Feeling OK. Notes swelling in his feet is improving. Will continue current torsemide dose. Would like to work on a DC home plan. Encouraged to ambulate the unit with nursing through the weekend and will consult OT as recommended in PT note. Pending these results, may be able to work on a home dispoplan. Rest of detailed plan and assessment as per below. Documentation and notation for evaluation of patient on 08/11/23. Eli Ferreira MD Hospitalist Physician 08/12/23 at 14:37 * Mercy Kim, PT - 08/10/2023 9336 EDT [facility] Therapy Acute Therapies [facility] Physical Therapy Encounter Note Date of Service: 08/10/2023 Subjective/Objective Subjective You shouldn't have shown me the kitchen. Now I know there's good stuff in there (pt making a joke) Objective Intervention completed today: Time: 1230 Total treatment time: 30 minutes. Timed code treatment minutes: 30 Pt received up in chair, willing to work. Requested to toilet prior to initiation of ambulation. Therapeutic Activity: Edema: BLE +++edema, pt with legs in dependent position upon arrival. Apparently has been sleeping in chair with feet down. Transfers; Sit <> stand from recliner chair with modified independence Pt amb to bathroom without assistive device, furniture surfing lightly with no overt LOB noted. Pt independently toileted. Offered SPC trial after toileting. Pt self-adjusted the cane (it is now set for little too tall-when reviewed this with pt, he stated no-it's good now). Due to pt's history of tending to resist suggestions, left SPC as is for now. Did review later during session with pt declining to adjust cane. Amb ~125' x 1 & ~225' x 1, with SPC, with pt utilizing in Right hand. Continues to demonstrate wide base of support, decreased foot clearance due to significant B pedal edema. For first ~125' with pt no LOB, however during 2nd session as he fatigued, pt with increased LOB, with several bobbles,although able to self- correct. Pt also only intermittently utilizing SPC, would at times carry it or use it with every other step. Although did tend to amb close to rail and intermittently use rail. Pt's gait speed was 0.67m/sec (6.1m in 9.06 sec( Gait Speed^ assesses walking speed over an established distance. Age/gender normative values for comfortable walking speed (Elias, 2011) Age Mean 95% CI meters/second Male Female 20-29 1.21-1.47 1.08-1.49 30-39 1.31-1.53 1.25-1.41 40-49 1.27-1.47 1.22-1.42 50-59 1.12-1.49 1.10-1.55 60-69 1.03-1.59 0.97-1.45 70-79 0.95-1.41 0.83-1.50 80-89 0.61-1.22 0.56-1.17 Patients (age 65 and older) who are hospitalized with a gait speed < 0.4 meters/second had significantly decreased odds of discharge to home compared to patients with a gait speed > 0.6 meters/second (Earlene, 2012). A cutoff score of < 0.7 meters/second for healthy older adults (>= 75 years) is indicative ofincreased risk of adverse events (fall, hospitalization, need for caregiver, fracture) (Lopez, 2005). The minimal clinically important difference (MCID) for community-dwelling elderly is 0.05 to 0.13 meters/second (Perara, 2006). Stairs: up 8 steps with rail with LUE and SPC in RUE with contact guard assist with pt demonstrating reciprocal gait. Down: 8 steps with rail, pt carrying SPC, with contact guard assist with pt demonstrating step-to gait pattern. Slightly more effortful. Cognition: pt did not recognize this clinician (I've worked with him at least 3- 4x). Also when amb by the kitchen he had no recall of being there with OT last week fixing a cup of coffee. Pt did recognize several other care providers in the hallway and would stop to chat patiy. Pt did endorse that he has been struggling with his memory since this hospitalization. Pt without recall of previous discussions that have occurred during therapy re: assistive devices, etc. (This web content writer has participated in several of these). Pt left standing in doorway talking with nrg. Patient/Family Education: Topic: Assistive device/technique Balance Equipment use Exercise Gait Positioning Role of therapy Safety Stairs Transfers Learner: patient Method: verbal and demonstration Barriers to Learning: cognitive deficits Outcome: requires assist and needs practice Team Communication: Pt status discussed with nursing after treatment session Assessment/Plan Assessment Pt's mobility has improved however pt still lacks danilo to dusk endurance to manage independent amb/ADLs. Pt still very directive of treatment. Cognitively this web content writer has significant concerns re: safety/memory for pt's ability to live alone. Recommend further OT cognitive screening as pt allows. Suspect pt would do well in a supervised environment once his endurance is up such as assisted living.He frequently has medical issues crop up (for the past 4-5 weeks at least 1 new medical issue or significant complaint has arisen that limits his ability to mobilize/participate.) continue to recommend ARAMIS. Would be significantly concerned re: pt's ability to manage home alone. Please amb pt TID inhallway as he tolerates/allows. Plan Continue per plan of care Recommended Discharge Destination: Sub-acute rehabilitation and See assessment above Recommended Discharge Services: Continued therapy Recommended Equipment Needs: To be determined Other recommendations: No other consults recommended at this time Pager: [phone] Mercy Kim, PT 08/10/2023 16:35 * Niecy Reynolds - 08/10/2023 1119 EDT [facility] Department of Case Management and Social Work Case Management Progress Note Patient Name Level of Care and Accommodation Code: Patient Class: Medically Ready: Y/N Derrick Hobson Acute Mcfp Level 1 Inpatient yes Primary Dx: Decisional Capacity: Y/N Primary Support/ CareGiver: Advance Directive Cardiogenic shock (HCC-CMS) yes Supports:siblings Advance Directives (For Healthcare) Healthcare Directive: No, patient unable to respond due to condition Information Provided on Healthcare Directives: No Information on Healthcare Directives Requested: No Disposition Information Appropriate to transfer back: Y/N Length of Stay (in days): Estimated Date of D/C: LTC Medicaid Status: [facility] did not accept transfer 46 TBD awaiting ARAMIS Bed No Primary Care Provider: AR/ARAMIS/SNF referred: Y/N Bed Offers: Y/N Escalated to Leadership: Y/N Davian Guzman yes no yes Mobility Level: Recommended D/C Location Payor: Bedside Mobility Assessment Tool (BMAT) Bedrest or non-weight bearing orders?: No Assessment Level 1-Sit & Shake: Pass Assessment Level 2-Stretch & Point: Pass Assessment Level 3-Stand: Pass Assessment Level 4-Step: Pass Mobility level determined: Mobility Level 4 use gait belt, walker, crutches, cane, prosthetic(s) Number of caregivers reccommended: 1 Number of caregivers used: 1 Recommended Discharge Destination PT Recommended Discharge Destination: Subacute rehabilitation Payor: MEDICARE / Plan: MEDICARE A/B / Product Type: Medicare GL / Barriers to Discharge ARAMIS placement Plan CM updated notes in [place]. CM will continue to monitor the clinical notes, meet with the tt, and regularly check in with the patient throughout their hospital stay to ensure a safe discharge. E-Signature MINERVA Kingston, Robyn Ed. Bark Fitter II Social Work and Case Management 08/10/23 11:19 * Madonna Husain, RD - 08/09/2023 1618 EDT Nutrition Assessment Note: Reassessment BACKGROUND DATA Subjective: Patient states that he wishes to go back on menu assist. He reports that sometimes he may forget toorder a meal, and sometimes he accidentally receives 2 meal trays. Current Nutrition Orders: Diet-Heart Healthy, 4 g Na, 2000 ml fluid restriction--nutrition offering milk TID with meals and custard BID with lunch and dinner daily --Menu Assist dc'd 08/03 Nutrition Focused Physical Exam Incomplete Physical Findings: Digestive Systems: Last BM 08/09/23 Dentition: Teeth: Missing teeth per flowsheets Edema: +3 lower extremities Skin: DTI sacrum-improved per business development executive note Allergies on file: Clonidine Anthropometrics: Height: 182.9 cm (72.01) Wt Readings from Last 6 Encounters: 08/09/23 67.8 kg (149 lb 7.6 oz) Weights Filed This Admission 06/25/23 1340 06/28/23 0900 06/29/23 1333 06/30/23 0815 Weight: 80.3 kg (177 lb) 80.3 kg (177 lb) 80.2 kg (176 lb 12.9 oz) 80.7 kg (177 lb 14.6 oz) 07/02/23 0949 07/02/23 1410 07/04/23 1011 07/06/23 0600 Weight: 81 kg (178 lb 9.2 oz) 80 kg (176 lb 5.9 oz) 80 kg (176 lb 5.9 oz) 70.2 kg (154 lb 12.2 oz) 07/06/23 0923 07/09/23 0611 07/10/23 0553 07/12/23 0548 Weight: 70.2 kg (154 lb 12.2 oz) 60.1 kg (132 lb 7.9 oz) 60 kg (132 lb 4.4 oz) 60.1 kg (132 lb 7.9 oz) 07/17/23 0929 07/18/23 0448 07/19/23 0415 07/19/23 0936 Weight: 59.9 kg (132 lb) 66.2 kg (145 lb 15.1 oz) 66.3 kg (146 lb 2.6 oz) 66.2 kg (146 lb) 07/20/23 0600 07/21/23 0444 07/22/23 0500 07/23/23 0515 Weight: 71.7 kg (158 lb 1.1 oz) 67.9 kg (149 lb 11.1 oz) 68.6 kg (151 lb 3.8 oz) 68.9 kg (151 lb 14.4 oz) 07/24/23 0600 07/25/23 0431 07/25/23 0600 07/27/23 0645 Weight: 68 kg (149 lb 14.6 oz) 66 kg (145 lb 8.1 oz) 64.8 kg (142 lb 13.7 oz) 69 kg (152 lb 1.9 oz) 07/28/23 0603 07/30/23 0506 08/01/23 0646 08/03/23 0644 Weight: 69.9 kg (154 lb) 68.6 kg (151 lb 4.8 oz) 65.8 kg (145 lb) 68.7 kg (151 lb 6.4 oz) 08/04/23 1623 08/09/23 0900 Weight: 70.4 kg (155 lb 4.8 oz) 67.8 kg (149 lb 7.6 oz) BMI: 20.27 Pertinent Medications: Current Facility-Administered Medications Medication Route Frequency acetaminophen (TYLENOL) tablet 500 mg oral QID atorvastatin (LIPITOR) tablet 40 mg oral DAILY citalopram (CELEXA) tablet 20 mg oral DAILY diclofenac sodium gel 2 g topical BID PRN Dimethicone-Zinc Oxide 20-25 % spray,non-aerosol topical BID enoxaparin (LOVENOX) injection 40 mg subcutaneous DAILY ferrous sulfate 324 mg (65 mg elemental) EC tablet 324 mg oral Q48H fluconazole (DIFLUCAN) tablet 200 mg oral DAILY WITH DINNER folic acid (FOLVITE) tablet 1 mg oral DAILY gabapentin (NEURONTIN) capsule 300 mg oral TID ketoconazole (NIZORAL) 2 % cream topical DAILY lidocaine (PF) 10 mg/mL (1 %) injection 2 mg intradermal PRN lidocaine 5 % (LIDODERM) patch 1 Patch transdermal DAILY lidocaine 5 % (LIDODERM) patch 1 Patch transdermal DAILY metoprolol SUCCinate (TOPROL-XL) tablet 50 mg oral DAILY pacsrndz-adg-jina fum-folic ac 7.5 mg iron-400 mcg tablet 1 Tablet oral DAILY oxyCODONE (ROXICODONE) immediate release tablet 10 mg oral Q4H PRN pantoprazole (PROTONIX) tablet 40 mg oral DAILY petrolatum (AQU[employer]OR [employer] HEALING) 41 % ointment topical DAILY ramelteon (ROZEREM) tablet 8 mg oral QHS thiamine (VITAMIN B1) tablet 100 mg oral DAILY topiramate (TOPAMAX) tablet 50 mg oral Q12H torsemide (DEMADEX) tablet 80 mg oral DAILY white petrolatum 42 % ointment topical TID Pertinent Labs: Lab Results Component Value Date/Time NA 137 08/09/2023 08:53 K 3.4 (L) 08/09/2023 08:53 CO2 22 08/09/2023 08:53 CL 99 08/09/2023 08:53 BUN 26 08/09/2023 08:53 CREATININE 1.95 (H) 08/09/2023 08:53 GLUCOSEPOC 115 (H) 08/04/2023 08:12 CALCIUM 9.2 08/09/2023 08:53 PHOS 4.6 (H) 07/18/2023 04:38 MG 1.8 08/09/2023 08:53 Lab Results Component Value Date/Time HGB 9.6 (L) 08/09/2023 08:53 HCT 29.8 (L) 08/09/2023 08:53 IRON 32 (L) 07/23/2023 05:15 TIBC 341 07/23/2023 05:15 MCV 95 08/09/2023 08:53 FERRITIN 42 07/23/2023 05:15 LABIRON 9 (L) 07/23/2023 05:15 Estimated Nutrition Needs: 25-30 kcal/kg (using 70.2 kg) = 5981-6788 kcals/day 1.2 g/kg protein (using 70.2 kg) = 85 g protein/day Fluid per medical team discretion Estimated Nutrition Intake: Incomplete documentation of meals in flowsheets 50 % X 1 on 08/08/23 ASSESSMENT: Patient with variable po intake. Nutrition is offering custard and milk with meals as source of additional calories/protein. Patient was removed from menu assist due to inappropriate interaction withmenu assist staff. He may require assist/cues from nursing at times to order meals at regular timeseach day. Recommend liberalize fat restricted diet to due marginal po intake. Patient on appropriate vitamin/mineral supplements. Nutrition Risk Level: Moderate (2) MEDICAL NUTRITION THERAPY - UPDATED PLAN -Recommend d/c heart healthy diet and order Low sodium diet(specify 4 g Na restriction and 2000 ml fluid restriction) -Nutrition offering milk TID with meals and custard BID with lunch and dinner daily -Patient no longer a candidate for menu assist; Nursing please encourage patient to order 3 meals daily -Trend weights -Monitor po intake, stool patten and skin -RD following Madonna Husain RD, CD (Call PAS or use [employer] to page RD covering this unit) * Shanthi Sen MD - 08/08/2023 1313 EDT MEDICINE PROGRESS NOTE Service Date: 08/08/23 Admit Date: 06/25/2023 13:23 Reason for Admission: 68 y.o. male with prolonged hospital course following cardiogenic shock related to toxic shock syndrome, awaiting ARAMIS with ongoing treatment of persistent candiduria. Significant 24-hour events: - Started 40 mg Torsemide for maintenance diuretic SUBJECTIVE Primary complaint today is left anterior rib pain, has been going on for several week. Feels it is getting worse despite doing less with his arms. Denies cough, shortness of breath. OBJECTIVE Vital Signs: Temp: [36.7 ??C (98 ??F)-37.1 ??C (98.8 ??F)] , Heart Rate: --, Resp: [17-18] , BP: (97-123)/(54-75) , SpO2: [96 %-99 %] Physical Exam: General: NAD, sitting upright in recliner Cardiac: RRR, S1+S2 normal, no murmur Resp: Breathing comfortably on RA, crackles in R base that resolve after 1 deep breath Abdomen: Soft, non-tender, non distended : Erythematous rash on testes and bilateral groin Extremities: left medial thigh hematoma improving. B/l 2+ pitting to the tibial plateau. Neuro: A&Ox3 Labs: CBC: Recent Labs 08/06/23 0916 WBC 6.99 RBC 2.98* HGB 9.3* HCT 28.3* MCV 95 MCH 31.2 MCHC 32.9 PLT 323 NEUTROABS 5.24 BMP: Recent Labs 08/06/23 0916 08/07/23 1546 08/08/23 1009 NA 136 135* 142 K 3.7 3.5 4.7 CL 102 102 103 CO2 20* 21* 24 BUN 28* 29* 27* CREATININE 2.09* 2.16* 1.99* CALCIUM 9.5 9.0 9.7 MG 1.8 -- 2.0 Imaging: None ASSESSMENT Derrick Hobson is a 68 y.o. male with a PMHx notable for HFrEF, Afib, COPD, and treated Hep C as a transfer from [facility] to [facility] on 06/25/23 with epistaxis, but ultimately found to be in multiorganfailure secondary to mixed cardiogenic/distributive shock and transferred here for consideration ofRRT. Now with prolonged hospital course complicated by hypotension, new severe systolic heart failure, AHRF, electrolyte derangements, shock liver, and oliguric acute kidney failure. Now with significant improvements in mental status and kidney function, with last HD session 07/05. Now focusing on titration of GDMT, initiation of maintenance diuretic, and regaining strength. Candiduria now symptomatic, treating with fluconazole. PLAN Acute b/l LE edema B/L scrotum pain and swelling- improved New onset since 07/29 afternoon. U/S scrotum 07/30 showed left hydrocele and epididymal cyst and incidental finding of scrotal monique. NT-proBNP markedly reduced from 28,000 to 3,000. No proximal vascular lesion contributing to lower extremity swelling per CT A/P 08/02. No evidence of scrotal edema or pain since 08/03. - B/L LE venous ultrasounds without evidence of clots in legs - lasix 60mg 08/06 - Short-term oxycodone 10 mg IR every 4 hours as needed for pain management Symptomatic Candiduria Tinea Cruris in Groin Dysuria starting ~07/31. Symptoms did not respond to bactrim. UA showing persistent candiduria (first noted on 07/05) - Urine culture collected 08/05 growing yeast - Hold empagliflozin starting 08/04 - Started Fluconazole 200mg x 2 weeks (renal adjusted dose) 08/05 - Ketoconazole 2% cream once daily Heart failure with improved ejection fraction (EF 20-25% --> 40%) Mixed cardiogenic/distributive shock, resolved EF improved significantly from 20% on admission to 40% on 06/27, to 35-40% on 07/16. NM SPECT stress test 07/18 with fixed defect of the RCA - no indication for revascularization. - goal SBP 120-160, heart rate <100 per cardiology - Atorvastatin 40mg daily - Trial of torsemide 40 mg daily - Titration of GDMT - metoprolol succinate 50 mg daily - Hold empagliflozin 10 mg daily starting 08/04 with persistent candiduria - hold losartan given elevated potassium and soft BP/intolerance to quad GDMT therapy - f/u with outpatient cardiology for HF at discharge Costochondritis Left anterior ribs tender to palpation, unclear trigger, has been progressing for a few weeks. -Lidocaine patch New onset R wrist drop - resolved Last confirmed normal 08/02, now almost back to baseline. Hx of Afib not on 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 apixaban, but unlikely embolic stroke following negative CT head and neck, non-con MR 08/03. Leading Ddx includes peripheral R radial/nerve injury/compression vs conversion disorder. Chronic anemia Anemia panel labs most consistent with at least a component of JANUSZ, likely multifactorial. S/p 500 mg IV iron sucrose 07/23/2023 and 07/28 - Likely intermittent IV iron sucrose every ~5-7 days while remains hospitalized for goal ~1500 mg total - Continue oral iron supplement daily Recurrent left inguinal/thigh hematoma, stabilized since 07/24 Records indicate left inguinal A-line placed at [facility] prior to transfer. No left SFA hematoma while in the MICU status post prior CTA and ultrasounds. 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 History of cocaine use. Treated with multiple Rhino Rocket's requiring current admission. Reports undergoing left nares cauterization in the past - Petroleum jelly to nares twice daily for moisturization - Discussed with ENT, recommended against acute intervention while hospitalized - recommend outpatient follow-up - Consider AC sparing approaches such as Watchman for Afib Persistent Afib (with RVR, resolved) Has not recently been on AC outpatient due to epistasxis, has been plagued with recurrent epistaxisPTA and prompting this current admission. CHADSVASc score is 4. HAS-BLED score is 2 - Rate control with metoprolol as above - No DOAC given severe anemia, recurrent epistaxis and L inguinal/thigh hematoma (previously incorrectly reported as 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 apixaban) Severe protein calorie malnutrition NG removed 07/14. All meds and food PO. - Nutrition following - Mighty shakes TID, magic cups BID - Cardiac diet CHRONIC/STABLE/RESOLVED: AHRF / hospital acquired pneumonia, resolved: s/p pip-tazo (end 07/13) Mood disorder: 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 citalopram 20 mg ?Neuropathic pain: 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 gabapentin 800mg TID restarted 07/11 at renally adjusted dose COPD: 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 duonebs PRN Polysubstance use disorder: hx cocaine use, ?EtOH disorder, ?opioid use Acute toxic metabolic encephalopathy, resolved: delirium precautions CHECKLIST: Consults: None Diet: Cardiac VTE Prophylaxis: Lovenox 40mg daily Code status: Full Code Discharge Plan: Currently needs [facility] as unable to climb stairs but working with PT SHANTHI SEN MD 08/08/23 13:14 Associated attestation - Eli Ferreira MD - 08/08/2023 9744 EDT Attending Attestation I interviewed and examined the patient. I have personally reviewed interval events, laboratory data, and imaging. I discussed the case with the inpatient resident team. I agree with findings and planof care as documented by the resident (or have edited in blue). Eli Ferreira MD Hospitalist Physician 08/08/23 at 15:52 * Niecy Reynolds - 08/08/2023 1109 EDT [facility] Department of Case Management and Social Work Case Management Progress Note Patient Name Level of Care and Accommodation Code: Patient Class: Medically Ready: Y/N Derrick Hobson Acute Mcfp Level 1 Inpatient yes Primary Dx: Decisional Capacity: Y/N Primary Support/ CareGiver: Advance Directive Cardiogenic shock ([facility]-CMS) yes Supports:siblings Advance Directives (For Healthcare) Healthcare Directive: No, patient unable to respond due to condition Information Provided on Healthcare Directives: No Information on Healthcare Directives Requested: No Disposition Information Appropriate to transfer back: Y/N Length of Stay (in days): Estimated Date of D/C: LTC Medicaid Status: [facility] did not accept transfer 44 TBD awaiting [facility] Bed No Primary Care Provider: AR/ARAMIS/SNF referred: Y/N Bed Offers: Y/N Escalated to Leadership: Y/N Davian Guzman yes no yes Mobility Level: Recommended D/C Location Payor: Bedside Mobility Assessment Tool (BMAT) Bedrest or non-weight bearing orders?: No Assessment Level 1-Sit & Shake: Pass Assessment Level 2-Stretch & Point: Pass Assessment Level 3-Stand: Pass Assessment Level 4-Step: Pass Mobility level determined: Mobility Level 4 use gait belt, walker, crutches, cane, prosthetic(s) Number of caregivers reccommended: 1 Number of caregivers used: 1 Recommended Discharge Destination PT Recommended Discharge Destination: Subacute rehabilitation Payor: MEDICARE / Plan: MEDICARE A/B / Product Type: Medicare GL / Barriers to Discharge AR versus [facility] placement Plan CM updated notes in [place]. CM emailed UR & RA specialists per medical teams request to have patient be reviewed for skilled. CM will continue to monitor the clinical notes, meet with the tt, and regularly check in with the patient throughout their hospital stay to ensure a safe discharge. E-Signature MINERVA Kingston M. Ed. Bark Fitter II Social Work and Case Management 08/08/23 11:09 * Paulina Wallace, PT - 08/08/2023 0724 EDT [facility] Rehabilitation Therapy [facility] Encounter Note Date of Service: 08/08/2023 Subjective/Objective SUBJECTIVE: Patient with no recollection of conversation from yesterday. New PT time set with him this am. OBJECTIVE: Intervention completed today: basket hand braider(s) present to assist: none Physical Therapy today at: 13:20 Total treatment time: 25 minutes. Timed code treatment minutes: 25 Vital signs were monitored and were stable throughout physical therapy session. Therapeutic Activity: During all functional activities noted above this patient was provided with manual assist and education via combination of verbal and demonstration. These were provided to give movement techniques to: optimize ability for patient to participate in and perform task and optimize patient safety When trying to set PT time for today patient non-committal and not wanting to provide a good time but reporting that the babbitt spinner time was not good. Nursing present and presented 13:00 as PT time and assured patient that he would have meds completed and shower done as he was worried about that. When I arrived at 13:00 he as eating a popsicle and declined to work with us. He reported that he never agreed to 13:00. After discussion he was agreeable to have me come back in 20 minutes. Sit to Stand: modified independent with no device Stand to Sit: modified independent with no device When I arrived to room he was standing in bathroom and had ambulated there without assist. He was observed to walk back toward his side of room with wide base of support, limited foot clearance and UE support on furniture in room. Provided education on benefit of walker and he was agreeble to walking but not agreeble to putting popsicle down (which he was still eating). Cues provided for safety and both hands on walker but patient not folowing these cues. When popsicle was put down he started using a walker for ambulation and her verbalizes how he feels he needs this and becomes irritated when this PT is asking questions about prior assistive device use. He starts walking with walker but then after telling this therapistthat he needs it he pushes walker aside and continues ambulating with no device. He requires close supervision to intermittent minimal contact assist without device for 200 feet distance. Without walker base of support wider and gait slower and he gravitates toward railing in hallway for support. Cues for safety provided throughout including optimal device use but recommendations were not implemented by patient. Prior to ambulation PT and patient had set goal for ambulation and trial of step/stair initiation as he has these at home. Patient with verbalized agreement but on walk back toward room where the step/stair activity was set up patient was informed that he was moving rooms. This caused further agitation and further inability to focus on PT. Patient back to room and refused further activity and threatening to leave hospital if he had to move rooms. Nursing notified. Patient describes that he lives alone and is usually active. He describes either 17 or 21 stairs for home entry. At end of session patient in: chair, call larson in reach, and patient declining LE elevation despiteedema Patient/Family Education: Topic: Activity pacing/Energy conservation Assistive device/technique Balance Discharge planning Gait Role of therapy Safety Learner: patient Method: verbal and demonstration Barriers to Learning: desire/motivation to learn versus cognitive deficits Outcome: requires assist Team Communication: Pt status discussed with nursing prior to and after treatment session. Discussed current level of mobility and recommendations with nursing for assistance with mobility and positioning outside of PT. Given potential for changes in patient status, nursing is recommended to use mobility assessment tool to determine ideal mobility technique and equipment. Assessment/Plan ASSESSMENT: Patient has demonstrated progress evidenced by ambulation ability but he has deficits with quality of gait. His mobility quality is impacted by chronic back pain as well as LE edema. He is recommended for assistive device, but during session today he has difficulty fully engaging with education andhe does not implement strategies. He verbalizes desire to get stronger but does not participate fully with PT, it is unclear if this is cognitive, behavioral or anticipated to be a combination of both. [facility] has been recommended and would continue to be recommended. Expect that he could progress to amobility level adequate for in home activity if he fully participated (currently he is not) but unclear if he has safety awareness and cognitive ability for return to home alone(and perform all danilo to dusk care needs and home functioning needs) with current presentation and it will be important tosee what assistance he has available for transition to home after rehab. PLAN: Continue per plan of care Recommended Discharge Destination: Sub-acute Rehabilitation Recommended Discharge Services: Physical therapy at rehabilitation facility Recommended Equipment Needs: To be determined by next care provider Other recommendations: More detailed cognitive assessment Pager: [phone] Paulina Wallace, PT 08/08/2023 7:26 * Letha Segovia - 08/07/2023 7304 EDT [facility] Department of Case Management and Social Work Case Management Progress Note Patient Name Level of Care and Accommodation Code: Patient Class: Medically Ready: Y/N Derrick Hobson Acute General Inpatient yes Primary Dx: Decisional Capacity: Y/N Primary Support/ CareGiver: Advance Directive Cardiogenic shock (HCC-CMS) yes Supports:siblings Advance Directives (For Healthcare) Healthcare Directive: No, patient unable to respond due to condition Information Provided on Healthcare Directives: No Information on Healthcare Directives Requested: No Disposition Information Appropriate to transfer back: Y/N Length of Stay (in days): Estimated Date of D/C: LTC Medicaid Status: [facility] did not accept transfer 43 TBD awaiting [facility] Bed No Primary Care Provider: AR/ARAMIS/SNF referred: Y/N Bed Offers: Y/N Escalated to Leadership: Y/N Davian Guzman yes no yes Mobility Level: Recommended D/C Location Payor: Bedside Mobility Assessment Tool (BMAT) Bedrest or non-weight bearing orders?: No Assessment Level 1-Sit & Shake: Pass Assessment Level 2-Stretch & Point: Pass Assessment Level 3-Stand: Pass Assessment Level 4-Step: Pass Mobility level determined: Mobility Level 4 use gait belt, walker, crutches, cane, prosthetic(s) Number of caregivers reccommended: 1 Number of caregivers used: 1 Recommended Discharge Destination PT Recommended Discharge Destination: Subacute rehabilitation Payor: MEDICARE / Plan: MEDICARE A/B / Product Type: Medicare GL / Barriers to Discharge AR versus [facility] placement Plan Pt continues to have no bed offers. [employer] discussed potential transfer back to [facility]. Per transfer center They have reviewed clinicalsand unable to take pt as anticipating that pt will need longer than 8-10 days swing stay. Which will violate their critical access status. Recommended to check with [facility]IS's in area CM will continue to monitor the clinical notes, meet with the tt, and regularly check in with the patient throughout their hospital stay to ensure a safe discharge. E-Signature MINERVA Bryant, [facility] Pest Control Chemical Technician II Epic Chat 08/07/23 16:27 * Paulina Wallace, PT - 08/07/2023 1417 EDT [facility] Rehabilitation Therapy Acute Therapy [facility] Contact Note Date of Service: 08/07/2023 Treatment attempted un-successfully 3 times today. Patient declined this am x 2 due to eating breakfast and on the phone. Time coordinated with patient for the afternoon but unable as he was off the floor. This afternoon I talked with patient about his goals for PT and goal of PT in working toward hospital discharge. He reports need to ambulate and perform stairs. We will continue to work with patient toward these goals. Engaged patient in setting PT time for tomorrow. He agrees to work but despite treatment time options he is non- committal. PT will follow up 08/08/2023. Paulina Wallace PT 08/07/2023 14:17 * Shanthi Sen MD - 08/07/2023 1230 EDT [facility] Service Date: 08/07/23 Admit Date: 06/25/2023 13:23 Reason for Admission: 68 y.o. male with prolonged hospital course following cardiogenic shock related to toxic shock syndrome, awaiting [facility] with ongoing treatment of persistent candiduria and diuresis. Significant 24-hour events: - U/s guided IV placement, lasix not given until this AM SUBJECTIVE Feeling much better today, denies chest pain. Still frustrated by swelling in feet. Improved strength and movement in R wrist. Feeling very discouraged by his prolonged hospital stay and wondering why he hasn't gotten a placement in rehab. Encouraged continued engagement with PT. OBJECTIVE Vital Signs: Temp: [36.4 ??C (97.5 ??F)-36.9 ??C (98.5 ??F)] , Heart Rate: [68 BPM-85 BPM] , Resp: [10-18] , BP:(95-106)/(66-74) , SpO2: [96 %-99 %] Physical Exam: General: NAD, sitting upright in recliner Cardiac: RRR, S1+S2 normal, no murmur Resp: Breathing comfortably on RA, course bibasilar breath sounds Abdomen: Soft, non-tender, non distended, BS present : Left testicle no longer with tenderness to palpation, right teste nontender, no prominent evidence of cellulitis on external scrotum, no scrotal edema Extremities: significant medial thigh swelling and ecchymoses but continue to improve. B/l 2+ pitting to the knees. Neuro: A&Ox3, R hand weak but improved almost to baseline, b/l arm strength equal 5/5, b/l kneeextension and flexion 4+/5 and equal, no dysarthria, speech fluent Labs: CBC: Recent Labs 08/05/23 0825 08/06/23 0916 WBC 8.75 6.99 RBC 3.02* 2.98* HGB 9.2* 9.3* HCT 28.3* 28.3* MCV 94 95 MCH 30.5 31.2 MCHC 32.5* 32.9 PLT 323 323 NEUTROABS 6.66 5.24 BMP: Recent Labs 08/05/23 0627 08/06/23 0916 NA 134* 136 K 4.1 3.7 CL 103 102 CO2 17* 20* BUN 27* 28* CREATININE 2.29* 2.09* CALCIUM 9.4 9.5 MG 1.7 1.8 LABALBU 3.8 -- Imaging: None Medications: Scheduled: acetaminophen, 500 mg, QID atorvastatin, 40 mg, DAILY citalopram, 20 mg, DAILY Dimethicone-Zinc Oxide, , BID [START ON 08/08/2023] enoxaparin, 40 mg, DAILY ferrous sulfate 324 mg (65 mg elemental), 324 mg, Q48H fluconazole, 200 mg, DAILY WITH DINNER folic acid, 1 mg, DAILY gabapentin, 300 mg, TID heparin, 5,000 Units, Q8H [START ON 08/08/2023] ketoconazole, , DAILY lidocaine 5 %, 1 Patch, DAILY metoprolol SUCCinate, 50 mg, DAILY Multivitamins with Minerals, 1 Tablet, DAILY pantoprazole, 40 mg, DAILY petrolatum, , DAILY ramelteon, 8 mg, QHS thiamine, 100 mg, DAILY topiramate, 50 mg, Q12H white petrolatum, , TID Continuous: PRN: diclofenac sodium, 2 g, BID PRN lidocaine, 2 mg, PRN oxyCODONE, 10 mg, Q4H PRN prochlorperazine, 10 mg, Q6H PRN ASSESSMENT Derrick Hobson is a 68 y.o. male with a PMHx notable for HFrEF, Afib, COPD, and treated Hep C as a transfer from [facility] to [facility] on 06/25/23 with epistaxis, but ultimately found to be in multiorganfailure secondary to mixed cardiogenic/distributive shock and transferred here for consideration ofRRT. Now with prolonged hospital course complicated by hypotension, new severe systolic heart failure, AHRF, electrolyte derangements, shock liver, and oliguric acute kidney failure. Now with significant improvements in mental status and kidney function, with last HD session 07/05. Now focusing on titration of GDMT and regaining strength. Complicated by L SFA hematoma, and L scrotum pain treated as epididymitis and swelling improved. Acute onset of R hand weakness likely due to peripheral nerve problem vs conversion disorder with imaging reassuring for no acute stroke events. Candiduria now symptomatic, treating with fluconazole. PLAN Acute b/l LE edema B/L scrotum pain and swelling- improved New onset since 07/29 afternoon. U/S scrotum 07/30 showed left hydrocele and epididymal cyst and incidental finding of scrotal monique. NT-proBNP markedly reduced from 28,000 to 3,000. No proximal vascular lesion contributing to lower extremity swelling per CT A/P 08/02. No evidence of scrotal edema or pain since 08/03. - B/L LE venous ultrasounds without evidence of clots in legs - lasix 60mg 08/06 - Short-term oxycodone 10 mg IR every 4 hours as needed for pain management Symptomatic Candiduria Tinea Cruris in Groin Dysuria starting ~07/31. Symptoms did not respond to bactrim. UA showing persistent candiduria (first noted on 07/05) - UA positive for lydia albicans, unchanged from prior UA culture - repeat UA culture 08/05 - Hold empagliflozin starting 08/04 - Started Fluconazole 200mg x 2 weeks (renal adjusted dose) 08/05 - Switch from Nystatin to Ketoconazole 2% cream once daily Heart failure with improved ejection fraction (EF 20-25% --> 40%) Mixed cardiogenic/distributive shock, resolved EF improved significantly from 20% on admission to 40% on 06/27, to 35-40% on 07/16. NM SPECT stress test 07/18 with fixed defect of the RCA - no indication for revascularization. - goal SBP 120-160, heart rate <100 per cardiology - Atorvastatin 40mg daily - Lasix as above -Titration of GDMT - metoprolol succinate 50 mg daily - Hold empagliflozin 10 mg daily starting 08/04 with persistent candiduria - hold losartan given elevated potassium and soft BP/intolerance to quad GDMT therapy - f/u with outpatient cardiology for HF at discharge New onset R wrist drop - improving Last confirmed normal 08/02, now almost back to baseline. Hx of Afib not on 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 apixaban, but unlikely embolic stroke following negative CT head and neck, non-con MR 08/03. Leading Ddx includes peripheral R radial/nerve injury/compression vs conversion disorder. - Isolated wrist defecit - Stroke code called 08/03, Neurology signed off 08/05 - Hold heparin gtt 08/04 following negative embolic stroke imaging - Discontinue Q4 neuro checks JOS on CKDIII Baseline creatinine around 1.5. Unclear etiology. Cr 2.02-> 2.42-> 2.29 -> 2.09. Too earlyfor contrast nephropathy. Consider congestive nephropathy vs pre-renal etiology. Bactrim from last several days may be contributing. - Daily BMP - Diuresis as above for edema Chronic anemia Anemia panel labs most consistent with at least a component of JANUSZ, likely multifactorial. S/p 500 mg IV iron sucrose 07/23/2023 and 07/28 - Likely intermittent IV iron sucrose every ~5-7 days while remains hospitalized for goal ~1500 mg total - Continue oral iron supplement daily Recurrent left inguinal/thigh hematoma, stabilized since 07/24 Records indicate left inguinal A-line placed at [facility] prior to transfer. No left SFA hematoma while in the MICU status post prior CTA and ultrasounds. 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 History of cocaine use. Treated with multiple Rhino Rocket's requiring current admission. Reports undergoing left nares cauterization in the past - Petroleum jelly to nares twice daily for moisturization - Discussed with ENT, recommended against acute intervention while hospitalized - recommend outpatient follow-up - Consider AC sparing approaches such as Watchman for Afib Persistent Afib (with RVR, resolved) Was on 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 apixaban 5 mg twice daily, but has been plagued with recurrent epistaxis 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 and prompting this current admission. CHADSVASc score is 4. HAS- BLED score is 2 - Rate control with metoprolol as above - No DOAC given severe anemia, recurrent epistaxis and L inguinal/thigh hematoma (previously incorrectly reported as 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 apixaban) Severe protein calorie malnutrition NG removed 07/14. All meds and food PO. - Nutrition following - Mighty shakes TID, magic cups BID - Cardiac diet CHRONIC/STABLE/RESOLVED: AHRF 2/2 hospital acquired pneumonia, resolved: s/p pip-tazo (end 07/13) Mood disorder: 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 citalopram 20 mg ?Neuropathic pain: 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 gabapentin 800mg TID restarted 07/11 at renally adjusted dose COPD: 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 duonebs PRN Polysubstance use disorder: hx cocaine use, ?EtOH disorder, ?opioid use Acute toxic metabolic encephalopathy, resolved: delirium precautions CHECKLIST: Consults: None Diet: Cardiac VTE Prophylaxis: Heparin TID switch to Lovenox 40mg daily on 08/06 Code status: Full Code Discharge Plan: Currently needs ARAMIS as unable to climb stairs but working with PT Elinor Clark, MS3 SHANTHI SEN MD 08/07/23 12:30 Associated attestation - Eli Ferreira MD - 08/07/2023 1311 EDT Attending Attestation I interviewed and examined the patient. I have personally reviewed interval events, laboratory data, and imaging. I discussed the case with the inpatient resident team. I agree with findings and planof care as documented by the resident (or have edited in blue). The resident was present with the medical student for the history, exam and medical decision making. I have personally performed my own physical exam and medical decision making. I have verified and agree with the combined medical student/resident's documentation. UA with yeast - started fluconazole as ongoing symptomatic of this and will follow up culture data to ensure appropriate. Receiving IV furosemide today. Pending response may need ongoing daily PO dosing and will assess. Rest of detailed plan and assessment as per below. Eli Ferreira MD Hospitalist Physician 08/07/23 at 13:08 * Queenie Augustin, OT - 08/06/2023 1423 EDT Rehabilitation Therapies Acute Therapies [facility] OccupationalTherapy Progress Note Date of Service: 08/06/2023 Precautions: Activity as tolerated [place] Subjective/Objective Subjective Its not a consolation for me regarding amount of progress made. Frustrated regarding not being athis baseline level of function Objective Interventions Completed Today: Time: 1150 Total treatment time: 65 minutes. Timed code treatment minutes: 65 minutes. Intervention included: Self-Care/Home Management (2) Patient received sitting in recliner chair and agreeable to OT intervention: Dressing- completed sock donning via figure four technique -IADL-Kitchen task: instructed patient in making cup of coffee in floor kitchen. required moderate-maximal cues and instruction for redirection and staying on task to complete. Able to obtain cup, however patient very perseverative on looking for non-decaf coffee. Difficulty with identifying how toproduce hot water. Required cues and education to problem solve electric kettle (reported he has never used one before, however did not demonstrate initiation into problem solving) required assist with plugging in and turning on. Patient distracted by wanting to make toast and required max redirection to continue to maintain on task with coffee task. Instructed in safety throughout mobility in kitchen with using walker and positioning on body. See below for mobility portion. Required cues to use left hand to hold and pour the electric kettle water into cup (due to right weakness and increasedsafety risk). Able to appropriately sequence majority of task. Maximal verbal cueing and instruction provided for rest breaks and sitting in wheelchair at end of task to wheel back to room. Therapeutic exercise: (1) Patient with new onset right UE weakness with unclear etiology per neurology consultation on 08/04/23. MRI with no evidence of new findings per chart. Active wrist extension rated as a 2-/5 for MMT and only able to achieve partial range. Flexion WNL. Wrist extension with AAROM: x10 in gravity eliminated plane. Education and instruction provided regarding technique and importance. Instructed on using right UE and hand functionally throughout all functional tasks (dressing, opening packages and managing cup/items to tolerance during kitchen task). Increased time taken to complete. - attempted to return with sponge to introduce exercises for hand strengthening, however patient declined due to being on the phone. Therapeutic activity (2) Functional mobility- Sit<>stand: close supervision, cues and education regarding appropriate positioning, pacing, and walker technique required. Functional ambulation: recliner chair>kitchen, doorway of room>recliner chair: cues and education regarding appropriate positioning, pacing, and walker technique required. Standing balance: static close supervision, dynamic: close supervision-minimal contact assistance: cues and education regarding appropriate positioning, pacing, and walker technique required. In kitchen to complete above coffee task. Extensive education and instruction provided throughout regarding role of OT and benefits of progressing independence and function. Vital Signs: Reported dizziness initially upon standing, however declined during all subsequent mobility. Activity Blood Pressure (mmHg) sitting, pre-activity 90/59 standing 79/56 Post activity, sitting 88/63 post-activity, Legs elevated 95/66 Patient/Family Education: Topic: Benefits of activity Compensatory strategies Role of OT Energy conservation Safety awareness Positioning Adaptive equipment Learner: patient Method: verbal and demonstration Barriers to Learning: desire/behavior Outcome: verbalized understanding and reinforcement needed Team Communication: Notified:Nurse By:Face to face communication When:Prior to therapy About:Readiness for therapy Patient status at end of therapy session: The patient was left in:Recliner chair With the: Call larson in reach In this reporting period 07/09/23 to today, the patient has been seen by an Occupational therapist. Relevant Objective Findings: Body Functions and Performance Skills: Mental Functions: See above and: Arousal:Alert Orientation:Oriented x 4 per 07/26 tx Judgement/insight:Impaired with safety awareness. Verbalizes insight into deficits to an extent, however not fully. Attention:Required cues for redirection-anticipate more behaviorally oriented) Following instructions: Able to follow 2 step instructions Behavioral characteristics: resistant to instruction at times. Voicing irritation. Per treatment session on 07/26: Scored a / on the SBT. Able to recall name and address, only difficulty noted with months of the year in reverse order. Sensory Functions: Hearing:Intact to conversational tones Touch:Reported tingling in right UE. Vision:Current complaints:blurry vision during reading, however patient not wearing reading glasses. Corrective lenses:Reading Comments: difficulty reading close up, however not wearing glasses. Has been reading and doing sudoku during hospitalization without difficulty Neuro musculoskeletal and Movement Related Functions: Range of Motion: Grossly within functional limits except: right wrist active extension (only slightactive movement noted in both gravity eliminated and against gravity positions) and right hip external rotation due to pain from groin/hematoma Strength: Manual muscle testing not formally performed, strength observed to be > 3/5 with grossmovement, except right wrist 2-/5. <3/5 right grasp. Control of Voluntary Movement: Impaired: right hand as observed during functional activities. Basic Activities of Daily Living: See above Mobility: See above Instrumental Activities of Daily Living: Based on performance this date, requires assist with IADLs Assessment/Plan Assessment Patient was seen in Occupational Therapy since 07/09/23: Patient has demonstrated steady progress since evaluation. He has progressed to complete functional mobility and ADLs with close supervision-minimal contact assistance. Overall, patient continues with the following impairments: Cognition, strength, Activity tolerance, Balance, and pain. He does present with new sensory and strength deficitsin his right UE since 08/02.These impairments impact all aspects of self care, and functional mobility/IADL performance. Anticipated steady rate of progress, however progress may be affected by strengths: previous level of function, barriers: decreased safety awareness, fall risk, limited support, de creased motivation with work with therapies. Patient not demonstrating ability to discharge home alone at this time and therefore continue to recommend ARAMIS to maximize function and promote safety. See below for updated goals. GOALS: Previous goals: Patient will be: Min contact assist with Bed mobility. Met Patient will be: Min contact assist with Toilet transfer. Discontinue (new goal with less level of assist) Patient will be: Min contact assist with Self feeding. Met Patient will be: Modified [place] with call larson use. Met - per nursing Patient will be oriented x4 in prep for ADLs Met Patient will tolerate sitting upright for functional task for ~8 minutes with minimal contact assistance. Met Patient will follow x1 step commands 100% of the time. Met NEW GOALS: Short Term Goals: 2-4 weeks Patient will be: modified independent with toilet transfer Patient will be: modified independent with shower and shower transfer Patient will be: modified independent with LE dressing Patient will be modified independent with household functional mobility Patient will be agreeable to OT intervention 90% of the time Mcfp Goals: 4-6 weeks Patient will be modified independent with kitchen task Patient will verbalize understanding of safe discharge recommendations Patient will verbalize understanding of 2 fall prevention and energy conservation strategies Patient will be modified independent with medication management Patient will be modified independent with laundry Plan Intervention: Occupational therapy will be provided by occupational therapist when medically appropriate. Frequency: daily for 1-3 times per week as determined by patient's medical stability, tolerance to activityand progression of functional activities. Intensity: 15-60 minutes per session, Duration: During hos pitalization, Interventions may include:Self care/home management, Therapeutic exercises, Therapeutic activities , Cognitive function intervention, and Neuromuscular re-education Further Data: Continued evaluation Patient/Family Education: Adapted ADLs Adaptive Equipment Role of OT Safety Recommended Discharge Destination: Sub-acute Rehabilitation Recommended Discharge Services: Occupational therapy at rehabilitation facility Recommended Discharge Equipment: To be determined Pager: [phone] Queenie Augustin OT, 08/06/2023, 14:24 * Paulina Wallace, PT - 08/06/2023 1401 EDT [facility] Rehabilitation Therapy Acute Therapy [facility] [place] [facility] Contact Note Date of Service: 08/06/2023 Met with patient for PT session this afternoon. He declines due to fatigue and wanting to sleep. Hereports that he recently ambulated. PT will follow up later this week. Paulina Wallace, PT 08/06/2023 14:01 * Shanthi Sen MD - 08/06/[address] [facility] MEDICINE INPATIENT PROGRESS NOTE Service Date: 08/06/23 Admit Date: 06/25/2023 13:23 Reason for Admission: 68 y.o. male with prolonged hospital course following cardiogenic shock related to toxic shock syndrome, previously awaiting ARAMIS but now with symptomatic candiduria, new right wrist drop, and recurrent epistaxis. Significant 24-hour events: - NAEO SUBJECTIVE Doesn't feel right today. Endorses now constant burning at the tip of his penis. Right hand remains weak with wrist drop, but isolated deficit and improved from yesterday. Seems to be unconcerned by weakness. Endorses pain in feet, left inner thigh, and sternum but can't describe better than 'pain'. OBJECTIVE Vital Signs: Temp: [36.8 ??C (98.3 ??F)-37.6 ??C (99.6 ??F)] , Heart Rate: [87 BPM-92 BPM] , Resp: [17-18] , BP:(85-101)/(53-68) , SpO2: [93 %-100 %] Physical Exam: General: NAD, sitting upright in recliner Cardiac: RRR, S1+S2 normal, no murmur Resp: Breathing comfortably on RA, course bibasilar breath sounds Abdomen: Soft, non-tender, non distended, BS present : Left testicle no longer with tenderness to palpation, right teste nontender, no prominent evidence of cellulitis on external scrotum, no scrotal edema Extremities: significant medial thigh swelling and ecchymoses but improved from earlier this week. B/l 2+ pitting to the knees, Neuro: A&Ox3, R hand weak but improving, b/l arm strength equal 5/5, b/l knee extension and flexion 4+/5 and equal, no dysarthria, speech fluent Labs: CBC: Recent Labs 08/05/23 0825 WBC 8.75 RBC 3.02* HGB 9.2* HCT 28.3* MCV 94 MCH 30.5 MCHC 32.5* PLT 323 NEUTROABS 6.66 BMP: Recent Labs 08/03/23 1209 08/04/23 0955 08/05/23 0627 NA 136 134* 134* K 5.0 4.3 4.1 CL 106 101 103 CO2 15* 19* 17* BUN 29* 29* 27* CREATININE 2.02* 2.42* 2.29* CALCIUM 9.2 9.0 9.4 MG -- -- 1.7 LABALBU -- -- 3.8 Imaging: Chest X-Ray Result Date: 08/05/2023 IMPRESSION No acute findings in the chest. [id number] Medications: Scheduled: acetaminophen, 500 mg, QID atorvastatin, 40 mg, DAILY citalopram, 20 mg, DAILY Dimethicone-Zinc Oxide, , BID ferrous sulfate 324 mg (65 mg elemental), 324 mg, Q48H folic acid, 1 mg, DAILY gabapentin, 300 mg, BID heparin, 5,000 Units, Q8H lidocaine 5 %, 1 Patch, DAILY metoprolol SUCCinate, 50 mg, DAILY Multivitamins with Minerals, 1 Tablet, DAILY nystatin, , BID pantoprazole, 40 mg, DAILY petrolatum, , DAILY ramelteon, 8 mg, QHS thiamine, 100 mg, DAILY topiramate, 50 mg, Q12H white petrolatum, , TID Continuous: PRN: diclofenac sodium, 2 g, BID PRN lidocaine, 2 mg, PRN oxyCODONE, 10 mg, Q4H PRN prochlorperazine, 10 mg, Q6H PRN ASSESSMENT Derrick Hobson is a 68 y.o. male with a PMHx notable for HFrEF, Afib, COPD, and treated Hep C as a transfer from [facility] to [facility] on 06/25/23 with epistaxis, but ultimately found to be in multiorganfailure secondary to mixed cardiogenic/distributive shock and transferred here for consideration ofRRT. Now with prolonged hospital course complicated by hypotension, new severe systolic heart failure, AHRF, electrolyte derangements, shock liver, and oliguric acute kidney failure. Now with significant improvements in mental status and kidney function, with last HD session 07/05. Now focusing on titration of GDMT and regaining strength. Complicated by L SFA hematoma, and L scrotum pain treated as epididymitis and swelling improved. Acute onset of R hand weakness likely due to peripheral nerve problem vs conversion disorder with imaging reassuring for no acute stroke events. PLAN B/L scrotum pain and swelling- no evidence of scrotal edema or pain since 08/03 Acute b/l LE edema New onset since 07/29 afternoon. U/S scrotum 07/30 showed left hydrocele and epididymal cyst and incidental finding of scrotal monique. Unclear if this is due to ecchymoses/bleeding given proximity to groin hematoma or epididymitis. Symptoms did not respond to a few doses of bactrim. NT-proBNP markedlyreduced from 28,000 to 3,000 - B/L LE venous ultrasounds without evidence of clots in legs - repeat lasix today - CT A/P 08/02: no insidious proximal vascular process contributing to lower extremity swelling. Showing known L hematoma. - Short-term oxycodone 10 mg IR every 4 hours as needed for pain management Symptomatic Candiduria Dysuria starting ~07/31. Not improved on bactrim. UA showing persistent candiduria (first noted on 07/05) - D/C Bactrim 08/02 - UA positive for lydia albicans, unchanged from prior UA culture - repeat UA culture 08/05 - Hold empagliflozin starting 08/04 - Start Fluconazole 200mg (renal adjusted dose) 08/05 New onset R wrist drop ?Peripheral nerve disorder Last confirmed normal 08/02. Given hx of Afib not on 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 apixaban, unlikely embolic stroke following negative imaging. Leading Ddx includes peripheral R radial/nerve injury vs conversion disorder. - Stroke code called 08/03, Neurology consulting - CTA head & neck: venous anomaly seen on prior MRI (retained contrast from yesterday's CT A/P), no acute intracranial hemorrhage, A1 of right DIAMOND is diminutive. - Non-con MR head 08/03 showed no acute infarct - Hold heparin gtt 08/04 following negative embolic stroke imaging Fever 101.8 6/2 AM, afebrile since - Expanded respiratory viral panel and chest x-ray negative - CTM Heart failure with improved ejection fraction (EF 20-25% --> 40%) Mixed cardiogenic/distributive shock, resolved EF improved significantly from 20% on admission to 40% on 06/27, to 35-40% on 07/16. NM SPECT stress test 07/18 with fixed defect of the RCA - no indication for revascularization - goal SBP 120-160, heart rate <100 per cardiology - atorvastatin 40mg daily -Titration of GDMT - metoprolol succinate 50 mg daily - Hold empagliflozin 10 mg daily starting 08/04 with persistent candiduria - hold losartan given elevated potassium and soft BP/intolerance to quad GDMT therapy - f/u with outpatient cardiology for HF at discharge - change diet to cardiac with 2 L fluid restriction - lasix 60mg 08/04 and 08/05, monitor kidney function JOS on CKDIII Baseline creatinine around 1.5. Unclear etiology. Cr 2.02-> 2.42-> 2.29 -> 2.09. Too earlyfor contrast nephropathy. Consider congestive nephropathy vs pre-renal etiology. Bactrim from last several days may be contributing. - Daily BMP - Diuresis today with furosemide 60 mg IV x 1 Chronic anemia -Anemia panel labs most consistent with at least a component of JANUSZ, likely multifactorial - s/p 500 mg IV iron sucrose 07/23/2023 and 07/28 - Likely intermittent IV iron sucrose every ~5-7 days while remains hospitalized for goal ~1500 mg total - Continue oral iron supplement daily Recurrent right inguinal/thigh hematoma, stabilized since 07/24 - No left SFA hematoma while in the MICU status post prior CTA and, ultrasounds - Records indicate left inguinal A-line placed at [facility] prior to transfer - Clinical course seems like this resolved/achieved hemostasis, now seems like it has recurred/progressed over the last 24 hours Plan: - DVT prophylaxis heparin 5K q8hr - Continue to hold therapeutic anticoagulation while hospitalized Recurrent epistaxis, dormant since 07/20 - Patient reports it been happening over the past year 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, 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, had to be treated with multiple Rhino Rocket's, reports undergoing left nares cauterization in the past - Most recent epistaxis occurred while hospitalized 08/04 (previously ~07/20) Plan: - Petroleum jelly to nares twice daily for moisturization - Discussed with ENT, recommended against acute intervention while hospitalized, recommended outpatient follow-up as well as consideration for AC sparing approaches such as Watchman Persistent Afib (with RVR, resolved) -Was on 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 apixaban 5 mg twice daily, but has been plagued with recurrent epistaxis 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 and prompting this current admission - CHADSVASc score is 4 - HAS-BLED score is 2 Plan: - Rate control with metoprolol as above - Holding on restarting 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 DOAC (Apixaban 5mg) given severe anemia, recurrent epistaxis and L inguinal/thigh hematoma Severe protein calorie malnutrition NG removed 07/14. All meds and food PO. - Nutrition following - Mighty shakes TID, magic cups BID - Regular diet CHRONIC/STABLE/RESOLVED: AHRF 04/06 hospital acquired pneumonia, resolved: s/p pip-tazo (end 07/13) Mood disorder: 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 citalopram 20 mg ?Neuropathic pain: 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 gabapentin 800mg TID restarted 07/11 at renally adjusted dose COPD: 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 duonebs PRN Polysubstance use disorder: hx cocaine use, ?EtOH disorder, ?opioid use Acute toxic metabolic encephalopathy, resolved: delirium precautions CHECKLIST: Consults: None Diet: Cardiac VTE Prophylaxis: Heparin TID Code status: Full Code Discharge Plan: Needs ARAMIS,ongoing medical complications Elinor Clark, MS3 SHANTHI SEN MD 08/06/23 18:08 Associated attestation - Eli Ferreira MD - 08/06/2023 7433 EDT Attending Attestation I interviewed and examined the patient. I have personally reviewed interval events, laboratory data, and imaging. I discussed the case with the inpatient resident team. I agree with findings and planof care as documented by the resident (or have edited in blue). The resident was present with the medical student for the history, exam and medical decision making. I have personally performed my own physical exam and medical decision making. I have verified and agree with the combined medical student/resident's documentation. In brief, this is a 68 year old male with comorbidities as below, most notable for HFrEF who has ada complicated hospital course. Initially admitted to the hospital with clinically significant epistaxis which course was complicated by multiorgan dysfunction due to progressive mixed cardiogenic/distributive shock which he has since clinically improved from and goal had been titrating GDMT (limited due to hypotension). More recently over the last week he has had dysuria with candiduria on urine (prior grown early july) - this has been on going despite prior trial of Bactrim. Will repeat UA at this point to assess for ongoing candiuria and if present will plan to treat as this would now be symp tomatic candiduria. He has also had some worsening of lower extremity edema (though time course challening to exactly pin down which seems to have improved over the last 24 hours after IV furosemide)- ?less self renal clearance of his fluid status in the setting of his JOS leading to increased fluid retention in the setting of his HFrEF, will trial a little further diurese. No other clear new decompensating feature, so as long as stabilizes out without ongoing diuresis need/new cardiac symptoms would hold on repeat TTE Rest of detailed plan and assessment as per below. Eli Ferreira MD Hospitalist Physician 08/06/23 at 18:19 * Lj Chu RN - 08/05/2023 1821 EDT Data: Patient alert and oriented X3. Complain of pain to scrotum. Nose bleed noted. Weakness noted to right hand. +3 pitting edema to BLE. Action: Medicated with analgesics and diuretic. No change neurologically. Nose bleed subsided quickly and doctor aware. Respiratory panel negative. CXR negative Response: Pt neurologically stable. Afebrile LJ CHU RN 08/05/2023 18:22 * Janet Van MD - 08/05/2023 1739 EDT BRIEF UPDATE Reviewed MRI, no evidence of acute ischemia or new findings to account for weakness. He remains at risk of vascular events in the setting of holding his AC, but will defer decision to primary team given complicated hospital course and multiple considerations. Neurology will sign off, please do not hesitate to contact us with further questions. Janet Van MD Chief Resident, Neurology PGR [id number] 08/05/23 / 17:40 * Neelima Estrada MD - 08/05/[address] [facility] MEDICINE INPATIENT PROGRESS NOTE Service Date: 08/05/23 Admit Date: 06/25/2023 13:23 Reason for Admission: 68 y.o. male admitted with a chief complaint of epistaxis; and now with a principal diagnosis of mixed cardiogenic and distributive shock w/ multi-organ dysfunction. Significant 24-hour events: - NAEO SUBJECTIVE Doesn't feel much different from yesterday. Endorses burning with peeing at the tip of his penis. Right hand remains weak, but isolated deficit. Seems to be unconcerned by weakness. OBJECTIVE Vital Signs: Temp: [36.8 ??C (98.2 ??F)-38.6 ??C (101.4 ??F)] , Heart Rate: [103 BPM-115 BPM] , Resp: [18-20] , BP: (87-115)/(50-86) , SpO2: [96 %-98 %] Physical Exam: General: NAD, sitting upright in recliner Cardiac: RRR, S1+S2 normal, no murmur Resp: Breathing comfortably on RA, course bibasilar breath sounds Abdomen: Soft, non-tender, non distended, BS present : Left testicle no longer with tenderness to palpation, right teste nontender, no prominent evidence of cellulitis on external scrotum, no scrotal edema Extremities: significant medial thigh swelling and ecchymoses but improved from earlier this week. B/l 2+ pitting to the knees, Neuro: A&Ox3, R hand weak, b/l arm strength equal 5/5, b/l knee extension and flexion 4+/5 and equal, R arm dysmetria (impaired finger to nose), no dysarthria, speech fluent Labs: CBC: Recent Labs 08/05/23 0825 WBC 8.75 RBC 3.02* HGB 9.2* HCT 28.3* MCV 94 MCH 30.5 MCHC 32.5* PLT 323 NEUTROABS 6.66 BMP: Recent Labs 08/03/23 1209 08/04/23 0955 08/05/23 0627 NA 136 134* 134* K 5.0 4.3 4.1 CL 106 101 103 CO2 15* 19* 17* BUN 29* 29* 27* CREATININE 2.02* 2.42* 2.29* CALCIUM 9.2 9.0 9.4 MG -- -- 1.7 Imaging: MR HEAD WO CONTRAST Result Date: 08/05/2023 No acute intracranial abnormality. Specifically, no acute infarct. I have personally reviewed the images and the above interpretation and agree with the findings. 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 Corresponding hyperattenuation with compatible with retained contrast within the developmental venous anomaly in the setting of patient recently having a contrast enhanced study 08/03/2023. No definite acute intracranial hemorrhage. A follow-up head CT head can be obtained to ensure resolution. CTA HEAD: No occlusion or severe stenosis of the major arterial vasculature of the head. CTA NECK: Moderate stenosis of the bilateral proximal ICAs. Focal severe stenosis of the left common carotid artery. CT ANGIO ABDOMEN PELVIS Result Date: 08/04/2023 New soft tissue density anterior to the left common femoral artery, presumably representing a hematoma status post removal of the previously existing left superficial femoral artery catheter. No evidence of bleeding or pseudoaneurysm. No findings of venous obstruction of either lower extremity. Chronic degenerative arterial disease as described above. Cardiomegaly. [id number] US LOWER VENOUS DUPLEX Result Date: 08/03/2023 1. No sonographic evidence of deep venous thrombosis in either lower extremity. 2. Left groin hematomas have decreased in size compared to ultrasound from 07/25/2023 [id number] Medications: Scheduled: acetaminophen, 500 mg, QID atorvastatin, 40 mg, DAILY citalopram, 20 mg, DAILY Dimethicone-Zinc Oxide, , BID empagliflozin, 10 mg, DAILY ferrous sulfate 324 mg (65 mg elemental), 324 mg, Q48H folic acid, 1 mg, DAILY gabapentin, 300 mg, BID lidocaine 5 %, 1 Patch, DAILY metoprolol SUCCinate, 50 mg, DAILY Multivitamins with Minerals, 1 Tablet, DAILY nystatin, , BID pantoprazole, 40 mg, DAILY petrolatum, , DAILY ramelteon, 8 mg, QHS thiamine, 100 mg, DAILY topiramate, 50 mg, Q12H white petrolatum, , TID Continuous: PRN: diclofenac sodium, 2 g, BID PRN lidocaine, 2 mg, PRN oxyCODONE, 10 mg, Q4H PRN prochlorperazine, 10 mg, Q6H PRN ASSESSMENT Derrick Hobson is a 68 y.o. male with a PMHx notable for HFrEF, Afib, COPD, and treated Hep C as a transfer from [facility] to [facility] on 06/25/23 with epistaxis, but ultimately found to be in multiorganfailure secondary to mixed cardiogenic/distributive shock and transferred here for consideration ofRRT. Now with prolonged hospital course complicated by hypotension, new severe systolic heart failure, AHRF, electrolyte derangements, shock liver, and oliguric acute kidney failure. Now with significant improvements in mental status and kidney function, with last HD session 07/05. Now focusing on titration of GDMT and regaining strength. Complicated by L SFA hematoma, and L scrotum pain treated as epididymitis and swelling improved. Acute onset of R hand weakness likely due to peripheral nerve problem vs conversion disorder with imaging reassuring for no acute stroke events. PLAN New onset R wrist drop ?Peripheral nerve disorder Last confirmed normal 08/02. Given hx of Afib not on 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 apixaban, unlikely embolic stroke following negative imaging. Leading Ddx includes peripheral R radial/nerve injury vs conversion disorder? - Stroke code called 08/03, Neurology consulting - CTA head & neck: venous anomaly seen on prior MRI (retained contrast from yesterday's CT A/P), no acute intracranial hemorrhage, A1 of right DIAMOND is diminutive. - Non-con MR head 08/03 showed no acute infarct - Hold heparin gtt 08/04 following negative embolic stroke imaging Fever 101.8 6/2 AM - Respiratory viral panel and chest x-ray - CTM JOS on CKDIII Baseline creatinine around 1.5. Unclear etiology. Cr 2.02-> 2.42-> 2.29. Too early for contrast nephropathy. Consider congestive nephropathy vs pre-renal etiology. Bactrim from last several days may be contributing. -Daily BMP - Diuresis today with furosemide 60 mg IV x 1 B/L scrotum pain and swelling- no evidence of scrotal edema or pain since 08/03 Acute b/l LE edema New onset since 07/29 afternoon. U/S scrotum 07/30 showed left hydrocele and epididymal cyst and incidental finding of scrotal monique. Unclear if this is due to ecchymoses/bleeding given proximity to groin hematoma or epididymitis. Symptoms did not respond to a few doses of bactrim. NT-proBNP markedlyreduced from 28,000 to 3,000 - D/C Bactrim 08/02 - B/L LE venous ultrasounds without evidence of clots in legs -CT A/P 08/02: no insidious proximal vascular process contributing to lower extremity swelling. Showing known L hematoma. - Short-term oxycodone 10 mg IR every 4 hours as needed for pain management - UA positive for lydia albicans, unchanged from prior UA culture Heart failure with improved ejection fraction (EF 20-25% --> 40%) Mixed cardiogenic/distributive shock, resolved EF improved significantly from 20% on admission to 40% on 06/27, to 35-40% on 07/16. NM SPECT stress test 07/18 with fixed defect of the RCA - no indication for revascularization - goal SBP 120-160, heart rate <100 per cardiology - atorvastatin 40mg daily -Titration of GDMT - metoprolol succinate 50 mg daily - Hold empagliflozin 10 mg daily starting 08/04 with persistent candiduria - hold spironolactone, losartan given elevated potassium and soft BP/intolerance to quad GDMT therapy - f/u with outpatient cardiology for HF at discharge - change diet to cardiac with 2 L fluid restriction - lasix 60mg 08/04, monitor kidney function Chronic anemia -Anemia panel labs most consistent with at least a component of JANUSZ, likely multifactorial - s/p 500 mg IV iron sucrose 07/23/2023 and 07/28 - Likely intermittent IV iron sucrose every ~5-7 days while remains hospitalized for goal ~1500 mg total - Continue oral iron supplement daily Recurrent right inguinal/thigh hematoma, stabilized since 07/24 - No left SFA hematoma while in the MICU status post prior CTA and, ultrasounds - Records indicate left inguinal A-line placed at [facility] prior to transfer - Clinical course seems like this resolved/achieved hemostasis, now seems like it has recurred/progressed over the last 24 hours Plan: - DVT prophylaxis heparin 5K q8hr - Continue to hold therapeutic anticoagulation while hospitalized Recurrent epistaxis, dormant since 07/20 - Patient reports it been happening over the past year 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, 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, had to be treated with multiple Rhino Rocket's, reports undergoing left nares cauterization in the past - Most recent epistaxis occurred while hospitalized 08/04 (previously ~07/20) Plan: - Petroleum jelly to nares twice daily for moisturization - Discussed with ENT, recommended against acute intervention while hospitalized, recommended outpatient follow-up as well as consideration for AC sparing approaches such as Watchman Persistent Afib (with RVR, resolved) -Was on 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 apixaban 5 mg twice daily, but has been plagued with recurrent epistaxis 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 and prompting this current admission - CHADSVASc score is 4 Plan: - Rate control with metoprolol as above - Holding on restarting 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 DOAC (Apixaban 5mg) given severe anemia recurrent epistaxis and L inguinal/thigh hematoma Severe protein calorie malnutrition NG removed 07/14. All meds and food PO. - Nutrition following - Mighty shakes TID, magic cups BID - Regular diet CHRONIC/STABLE/RESOLVED: AHRF 2/2 hospital acquired pneumonia, resolved: s/p pip-tazo (end 07/13) Mood disorder: 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 citalopram 20 mg ?Neuropathic pain: 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 gabapentin 800mg TID restarted 07/11 at renally adjusted dose COPD: 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 duonebs PRN Candiduria: not treating per ID unless clinical worsening (would do fluconazole) Polysubstance use disorder: hx cocaine use, ?EtOH disorder, ?opioid use Acute toxic metabolic encephalopathy, resolved: delirium precautions CHECKLIST: Consults: None Diet: Cardiac VTE Prophylaxis: Heparin TID Code status: Full Code Discharge Plan: Needs ARAMIS,ongoing medical complications Elinor Clark, MS3 Attestation statement: I was present with the medical student for the history, exam, and medical decision making documented. I have personally performed my own physical exam and medical decision making. I have verified and agree with (or have edited) the medical student's documentation. Shanthi Tom MD, PhD PGY-3, Internal Medicine Pager: [phone] [employer] Secure Message Attending Attestation The resident was present with the medical student for the history, exam, and medical decision making documented. I have personally performed my own physical exam and medical decision making. I have verified and agree with (or have edited in underline) the combined medical student's and resident's documentation. Neelima Estrada MD 08/05/2023 15:07 * Lj Chu RN - 08/04/2023 1827 EDT Data: 7:48 am pt found in chair with right sided weakness and right facial droop.No LOC noted Vitals and blood sugar normal. was made aware.Stroke code was called and CT scan done which was not conclusive for CVA Action: Q4 neuro checks unchangeable, awaiting MRI head, heparin gtt started, next UFH 2240 Response: Neurologically stable LJ CHU RN 08/04/2023 18:27 * Lj Chu RN - 08/04/2023 1108 EDT 7:48 am pt found in chair with right sided weakness and right facial droop.No LOC noted Vitals and blood sugar normal. was made aware.Stroke code was called and CT scan done. * Mica Tang RN - 08/04/2023 0925 EDT Rapid Response Team Nursing Note (SBAR) Team Times: Call Type: Stroke Code Call Time: 823 Call Date: 08/04/23 Call Originator: Nurse ALFONSO Arrival at Bedside: 823 Team Completion Time: 922 NATY Completion Time: 922 Code Status: Full Initial Vitals: BP: 91/58 BP MAP: 70 mm Hg Pulse: (!) 107 SpO2: 96 % Temp: 37.8 ??C (100.1 ??F) Neurological Assessment: Deficits: RUE FAST Exam: Positive (comment) Intervention: No intervention Cardiovascular Assessment: Respiratory Assessment: GI/ Assessment: Patient Status: Team Members: NATY (Name): Sunny Brar Hospitalist (Name): Sean ANC (Name): Rohit Respiratory (Name): Beto Patient Support (Name): Enrrique Additional Detail: Stroke code called for acute R arm weakness. Neuro at bedside to assess. Please see neuro note for full NIHSS. STAT head CT obtained. Per neuro, patient can remain on M6. Plan: - Neuro to f/u re: CT scan - Medicine team discussing cost/benefit of starting heparin gtt given the large resolving thigh hematoma and his known Afib (with AC held). NATY is available to assist w/ questions or concern. * Neelima Estrada MD - 08/04/[address] [facility] MEDICINE INPATIENT PROGRESS NOTE Service Date: 08/04/23 Admit Date: 06/25/2023 13:23 Reason for Admission: 68 y.o. male admitted with a chief complaint of epistaxis; and now with a principal diagnosis of mixed cardiogenic and distributive shock w/ multi-organ dysfunction. Significant 24-hour events: -CODE stroke called this AM for right hand weakness. SUBJECTIVE Feels okay, notes he doesn't feel much different. Is aware of right hand deficit. Otherwise states that testicular pain is about the same. OBJECTIVE Vital Signs: Temp: [37.1 ??C (98.7 ??F)-37.8 ??C (100.1 ??F)] , Heart Rate: [85 BPM] , Resp: [16-18] , BP: (90-114)/(58-64) , SpO2: [97 %-99 %] Physical Exam: General: NAD, sitting upright in recliner chair drinking coffee Cardiac: RRR, S1+S2 normal, no murmur Resp: Breathing comfortably on RA, course bibasilar breath sounds Abdomen: Soft, non-tender, non distended, BS present : Left testicle no longer with tenderness to palpation, right teste nontender, no prominent evidence of cellulitis on external scrotum, no scrotal edema Extremities: significant medial thigh swelling and ecchymoses but improved from earlier this week. . B/l 2+ pitting to the knees, Neuro: A&Ox3, R hand weak, b/l arm strength equal 5/5, b/l knee extension and flexion 4+/5 and equal, R arm dysmetria (impaired finger to nose), no dysarthria, speech fluent Labs: CBC: Recent Labs 08/02/23 0544 WBC 10.33 RBC 3.01* HGB 9.2* HCT 28.9* MCV 96* MCH 30.6 MCHC 31.8* PLT 291 BMP: Recent Labs 08/02/2344 08/03/23 1209 NA 139 136 K 5.2* 5.0 CL 104 106 CO2 21* 15* BUN 25 29* CREATININE 1.79* 2.02* CALCIUM 9.6 9.2 MG 1.6* -- Imaging: US SCROTUM WITH LIMITED DUPLEX Result Date: 07/31/2023 Findings/Impression: Right testicle: Arterial and venous Doppler waveforms and color flow are normal in the right testicle. Left testicle: Arterial and venous Doppler waveforms and color flow are normal in the left testicle. GRAYSCALE: Technique: Grayscale ultrasound of the scrotum was performed. Indication for Grayscale: L scrotal pain and swelling, possibly related to resolving L inner thigh hematoma; Findings: Right Testicle: The right testis measures 4.4 x 2.3 x 2.4 cm, for an estimated total testis volume of 12.8 mL. Homogeneous echogenicity. No intratesticular lesion. Right Epididymis: The right epididymal head measures 0.6 x 0.8 x 1.1 cm. Homogeneous echogenicity. Normal vascularity o n color Doppler. Left Testicle: The left testis measures 3.9 x 2.1 x 2.9 cm, for an estimated totaltestis volume of 12.4 mL. Homogeneous echogenicity. No intratesticular lesion. Left Epididymis: Theleft epididymal head measures 0.7 x 1.1 x 0.3 cm. Homogeneous echogenicity. Normal vascularity on color Doppler. Incidental note of small 4 mm epididymal cyst. Spermatic Cords: Straight bilaterally. Scrotal Sac: Trace left hydrocele. No varicocele present. Incidental note of scrotal monique on the left measuring 3 mm in diameter. Scrotal Skin: No skin thickening. IMPRESSION: 1. No intratesticular lesion or evidence of torsion. 2. Small left hydrocele. 3. Small left epididymal cyst. Medications: Scheduled: acetaminophen, 500 mg, QID aspirin chewable, 81 mg, DAILY atorvastatin, 40 mg, DAILY citalopram, 20 mg, DAILY Dimethicone-Zinc Oxide, , BID empagliflozin, 10 mg, DAILY ferrous sulfate 324 mg (65 mg elemental), 324 mg, Q48H folic acid, 1 mg, DAILY gabapentin, 300 mg, BID heparin, 5,000 Units, Q8H lidocaine 5 %, 1 Patch, DAILY metoprolol SUCCinate, 50 mg, DAILY Multivitamins with Minerals, 1 Tablet, DAILY nystatin, , BID pantoprazole, 40 mg, DAILY petrolatum, , DAILY ramelteon, 8 mg, QHS thiamine, 100 mg, DAILY topiramate, 50 mg, Q12H white petrolatum, , TID Continuous: PRN: diclofenac sodium, 2 g, BID PRN lidocaine, 2 mg, PRN oxyCODONE, 10 mg, Q4H PRN prochlorperazine, 10 mg, Q6H PRN ASSESSMENT Derrick Hobson is a 68 y.o. male with a PMHx notable for HFrEF, Afib, COPD, and treated Hep C as a transfer from [facility] to [facility] on 07/10/23 with epistaxis, but ultimately found to be in multiorganfailure secondary to mixed cardiogenic/distributive shock and transferred here for consideration ofRRT. Now with prolonged hospital course complicated by hypotension, new severe systolic heart failure, AHRF, electrolyte derangements, shock liver, and oliguric acute kidney failure. Now with significant improvements in mental status and kidney function, with last HD session 07/05. Now focusing on titration of GDMT and regaining strength. Complicated by L SFA hematoma, and L scrotum pain and swelling though has remained quite clinically stable the past 72 hours. PLAN New onset L hand weakness, concern for stroke Last confirmed normal 08/02. Given hx of Afib not on 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 apixaban, concern for embolic stroke - Stroke code called 6/1, Neurology consulting - CTA head & neck: venous anomaly seen on prior MRI (retained contrast from yesterday's CT A/P), no acute intracranial hemorrhage, A1 of right DIAMOND is diminutive. - Will obtain non-con MR head -Start heparin gtt today for presumed embolic stroke. Will pause if evidence of epistaxis/expandinghematoma JOS Unclear etiology. Cr 2.02-> 2.42. Too early for contrast nephropathy. Consider congestive nephropathy vs pre-renal etiology. Bactrim from last several days may be contributing. -Daily BMP B/L scrotum pain and swelling- no evidence of scrotal edema or pain today Acute b/l LE edema New onset since 07/29 afternoon. U/S scrotum 07/30 showed left hydrocele and epididymal cyst and incidental finding of scrotal monique. Unclear if this is due to ecchymoses/bleeding given proximity to groin hematoma or epididymitis. Symptoms did not respond to a few doses of bactrim. NT-proBNP markedlyreduced from 28,000 to 3,000 - D/C Bactrim - B/L LE venous ultrasounds without evidence of clots in legs - Given concern vascular problem in pelvis impairing venous/lymphatic return, will likely order CT of A/P -CT A/P 08/02: no insidious proximal vascular process contributing to lower extremity swelling. Showing known L hematoma. - Short-term oxycodone 10 mg IR every 4 hours as needed for pain management - UA positive for lydia albicans, unchanged from prior UA culture Heart failure with improved ejection fraction (EF 20-25% --> 40%) Mixed cardiogenic/distributive shock, resolved EF improved significantly from 20% on admission to 40% on 06/27, to 35-40% on 07/16. NM SPECT stress test 07/18 with fixed defect of the RCA - no indication for revascularization - goal SBP 120-160, heart rate <100 per cardiology - atorvastatin 40mg daily -Titration of GDMT - metoprolol succinate 50 mg daily - Continue empagliflozin 10 mg daily - hold spironolactone, losartan given elevated potassium and soft BP/intolerance to quad GDMT therapy - f/u with outpatient cardiology for HF at discharge - change diet to cardiac with 2 L fluid restriction - torsemide 20 mg started 08/01, didn't improve swelling Chronic anemia -Anemia panel labs most consistent with at least a component of JANUSZ, likely multifactorial - s/p 500 mg IV iron sucrose 07/23/2023 and 07/28 - Likely intermittent IV iron sucrose every ~5-7 days while remains hospitalized for goal ~1500 mg total - Continue oral iron supplement daily Recurrent right inguinal/thigh hematoma, stabilized since 07/24 - No left SFA hematoma while in the MICU status post prior CTA and, ultrasounds - Records indicate left inguinal A-line placed at [facility] prior to transfer - Clinical course seems like this resolved/achieved hemostasis, now seems like it has recurred/progressed over the last 24 hours Plan: - DVT prophylaxis heparin 5K q8hr - Continue to hold therapeutic anticoagulation while hospitalized Recurrent epistaxis, dormant since 07/20 - Patient reports it been happening over the past year 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, 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, had to be treated with multiple Rhino Rocket's, reports undergoing left nares cauterization in the past - Most recent epistaxis occurred while hospitalized ~07/20 Plan: - Petroleum jelly to nares twice daily for moisturization - Discussed with ENT, recommended against acute intervention while hospitalized, recommended outpatient follow-up as well as consideration for AC sparing approaches such as Watchman Persistent Afib (with RVR, resolved) -Was on 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 apixaban 5 mg twice daily, but has been plagued with recurrent epistaxis 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 and prompting this current admission - CHADSVASc score is 4 Plan: - Rate control with metoprolol as above - Holding on restarting 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 DOAC (Apixaban 5mg) given severe anemia recurrent epistaxis and L inguinal/thigh hematoma Severe protein calorie malnutrition NG removed 07/14. All meds and food PO. - Nutrition following - Mighty shakes TID, magic cups BID - Regular diet CHRONIC/STABLE/RESOLVED: AHRF 2/2 hospital acquired pneumonia, resolved: s/p pip-tazo (end 07/13) Mood disorder: 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 citalopram 20 mg ?Neuropathic pain: 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 gabapentin 800mg TID restarted 07/11 at renally adjusted dose COPD: 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 duonebs PRN Candiduria: not treating per ID unless clinical worsening (would do fluconazole) Polysubstance use disorder: hx cocaine use, ?EtOH disorder, ?opioid use Acute toxic metabolic encephalopathy, resolved: delirium precautions CHECKLIST: Consults: None Diet: Cardiac VTE Prophylaxis: Heparin TID Code status: Full Code Discharge Plan: Needs ARAMIS,ongoing medical complications Eliu Rene MD Internal Medicine, PGY-1 Epic Chat (prefer) Pgr#[phone] Attending Attestation I saw and examined the patient with the resident. I discussed the patient with Dr. Rene and the Neurology team. I agree with and edited (in underline) the findings and plan of care as documented in the note above. I spent 50 minutes in the direct care of this patient today. Neelima Estrada MD Internal Medicine Hospitalist 08/04/2023 17:22 * Mercy Kim, PT - 08/03/2023 1520 EDT [facility] Therapy Acute Therapies [facility] Physical Therapy Progress Note Date of Service: 08/03/2023 Precautions: activity as tolerated, fall precautions, frequent orthostatic hypotension Subjective/Objective Subjective N/a Objective Pt not seen today. Pt with acute swelling in B feet, team requested to hold today, pt to get imaging with BLE US, also BNP noted to be elevated to ~3400. Team Communication: messaged team who requested for PT to hold today until imaging completed. In this reporting period 07/05/23 to 08/03/23 the patient has been seen by a physical therapist. Please refer to the physical therapy encounter notes for specifics on the patient's functional status and treatment sessions. Relevant objective findings: AROUSAL, ATTENTION, AND COGNITION: pt alert and oriented x at least 2, much more cognitively clear than had been during initial evaluation CARDIOPULMONARY: Pt with recent frequent episodes of orthostatic hypotension in past couple of weeks. Pt continues to get significantly dizzy with position changes and with ambulation. Dizziness has been limiting factor during ambulation with last tx 07/30/23. INTEGUMENTARY/ANTHROPOMETRIC CHARACTERISTICS: Pt admitted with large hematoma left upper thigh-this had mostly resolved, however ~1 week ago, pt with new area of hematoma left groin. Last several days with pt significant discomfort with scrotum. BALANCE, MOBILITY, AND GAIT: (Per 07/30/23 tx note) Transfers; Sit <> stand from recliner chair and wheelchair with contact guard assist with RW with min verbal cues for hand placement. Slightly effortful, pt c/o discomfort L groin as well as giselle-area. Reports being Raw. Recliner chair<>wheel chair, with pt able to take several steps without RW, holding on lightly to tray table and stepping around to wheel chair. Wheeled into hallway. Ambulation: ~80' x 2 trials as well as ~30' x 2 trials with RW with min contact assistance with pt demonstrating reciprocal gait, wide base of support, not leaning as heavily through RW today, CLOSE chair follow. Pt with occasional intermittent unsteadiness especially as dizziness progressed.. seated rest when dizziness became 6-7/10. Pt very pleased with his efforts today. SELF-CARE, HOME MANAGEMENT, WORK, AND LEISURE: see above Assessment/Plan Assessment Physical Therapy Diagnosis: This patient presents with a Physical Therapy diagnosis of :Impaired mobility, Impaired self care, Lower extremity dysfunction, and Upper extremity dysfunction impacted by impairments of: cognition, muscle strength, and safety awareness Physical Therapy Prognosis: pt has made significant progress since his initial evaluation. Pt no longer requires dialysis and cognitively has cleared significantly with pt now alert/oriented x 3. Pt is now ambulatory. Pt does have frequent c/o of various things (dizziness/fatigue/discomfort), and likes to be directive with his care. (Will do things when he's ready). Pt has been able to take a shower and was observed today amb back from shower, but reported fatigue so didn't want to work with PTat that point. When this web content writer attempted later, he was noted to have r/o US for BLE due to acute swelling with BNP noted to be elevated as well. Team requested to hold today. Pt has had frequent medical set-backs slowing his progress with a rapid response called due to severe orthostatic hypotension, new swelling Left groin, +nose bleed, and now scrotal pain. Pt continuesto struggle with upright position changes, but declines to utilize stockings/etc. This web content writer hopeful that pt had progressed to acute rehab level, however pt with new onset scrotal pain, so declined tx, with acute rehab signing off. Pt is now listed on TRP list since no [facility] beds have been offered to date (unclear reason why). Pt has progressed significantly with his mobility functioning at grossly a supervision to min assist level. Goal status as noted below with new goals set to reflect his cur rent status. Currently recommend [facility], if pt starts to progress, may re-consult acute rehab. Will also work towards home. Short-Term Goals: n/a Long-Term Goals: 2-4 weeks All goals met The patient will be able to perform bed mobility with minimal contact assistance demonstrating appropriate sequencing/motor planning. The patient will be able to perform transfers with moderate assistance while demonstrating an effective strategy for recovery of loss of balance. The patient will be able to ambulate with moderate assistance with no loss of balance on level surfaces >50 feet with/without assistive device as needed. The patient and/or caregiver will be aware of the PT recommendations provided and verbalize and/or demonstrate understanding of the recommendations. Long-Term Goals: 2-4 weeks The patient will be able to perform bed mobility with modified independence demonstrating appropriate sequencing/motor planning. The patient will be able to perform transfers with modified independence while demonstrating an effective strategy for recovery of loss of balance. The patient will be able to ambulate with modified independence with no loss of balance on level surfaces >/= 250 feet with/without assistive device as needed. Pt to remain hemodynamically stable with above activities Pt to ascend/descend >/= 3 stairs with home set-up if needed for discharge. The patient and/or caregiver will be aware of the PT recommendations provided and verbalize and/or demonstrate understanding of the recommendations. Plan Physical therapy to be provided by physical therapist and/or physical therapist care team assistant when medically appropriate Frequency: daily for 2-3 times per week as determined by the patient's medical stability, toleranceto activity and progression of functional activities Intensity: 15-60 minutes per session Duration: During hospitalization Interventions: Therapeutic exercises, Therapeutic activities, Gait training, Neuromuscular re- education, and Self-care/management Patient/Family Education: Discharge planning, Equipment, Recommendations, Role of physical therapy/rehabilitation, Safety Further Data: Recommended Discharge Destination: Sub-acute rehabilitation and See assessment above Recommended Discharge Services: Physical therapy at rehabilitation facility Recommended Equipment Needs: To be determined by next care provider Other recommendations: No other consults recommended at this time Pager: [phone] Mercy Kim, PT 08/03/2023 15:20 * Mica Hoang - 08/03/2023 3732 EDT [facility] Rehabilitation Therapy Acute Therapy Main [place] Occupational Therapy Contact Note Date of Service: 08/03/2023 Attempted occupational therapy intervention however patient was not agreeable to therapy. Educationabout benefits of activity was provided however patient continued to decline working with OT. Will follow up as appropriate. Mica Hoang, 08/03/2023, 14:59 * Neelima Estrada MD - 08/03/[address] [facility] MEDICINE INPATIENT PROGRESS NOTE Service Date: 08/03/23 Admit Date: 06/25/2023 13:23 Reason for Admission: 68 y.o. male admitted with a chief complaint of epistaxis; and now with a principal diagnosis of mixed cardiogenic and distributive shock w/ multi-organ dysfunction. Significant 24-hour events: - Continued L scrotal pain, worsening b/l LE edema SUBJECTIVE Continues to endorse significant pain in his left groin and testicle, says it is getting moderatelybetter. Now primary concern is his foot swelling and inner left thigh pain which hurts to bear weight on. Frustrated by length of hospital stay and desire to leave. Understands he must await a bed placement. Encouraged active engagement with PT while in the hospital. OBJECTIVE Vital Signs: Temp: [37.2 ??C (98.9 ??F)] , Heart Rate: --, Resp: --, BP: (119-133)/(77-85) , SpO2: [95 %-98 %] Physical Exam: General: NAD, sitting upright in recliner chair drinking coffee Cardiac: RRR, S1+S2 normal, no murmur Resp: Breathing comfortably on RA, no adventitious lung sounds, no cough Abdomen: Soft, non-tender, non distended, BS present : Left testicle generalized tenderness to palpation, tenderness tracks along spermatic cord up into left inguinal canal area, right teste nontender, no prominent evidence of cellulitis on external scrotum Extremities: Focal area of tense soft mass of left inguinal area with improving overlying ecchymoses, significant medial thick swelling and ecchymoses. LE edema bilaterally to mid sanchez Neuro: Alert and oriented, no focal sensory or motor neurological deficits appreciated, spontaneousmovement of 4 extremities Labs: CBC: Recent Labs 08/02/23 0544 WBC 10.33 RBC 3.01* HGB 9.2* HCT 28.9* MCV 96* MCH 30.6 MCHC 31.8* PLT 291 BMP: Recent Labs 08/02/23 0544 08/03/23 1209 NA 139 136 K 5.2* 5.0 CL 104 106 CO2 21* 15* BUN 25 29* CREATININE 1.79* 2.02* CALCIUM 9.6 9.2 MG 1.6* -- Imaging: US SCROTUM WITH LIMITED DUPLEX Result Date: 07/31/2023 Findings/Impression: Right testicle: Arterial and venous Doppler waveforms and color flow are normal in the right testicle. Left testicle: Arterial and venous Doppler waveforms and color flow are normal in the left testicle. GRAYSCALE: Technique: Grayscale ultrasound of the scrotum was performed. Indication for Grayscale: L scrotal pain and swelling, possibly related to resolving L inner thigh hematoma; Findings: Right Testicle: The right testis measures 4.4 x 2.3 x 2.4 cm, for an estimated total testis volume of 12.8 mL. Homogeneous echogenicity. No intratesticular lesion. Right Epididymis: The right epididymal head measures 0.6 x 0.8 x 1.1 cm. Homogeneous echogenicity. Normal vascularity o n color Doppler. Left Testicle: The left testis measures 3.9 x 2.1 x 2.9 cm, for an estimated totaltestis volume of 12.4 mL. Homogeneous echogenicity. No intratesticular lesion. Left Epididymis: Theleft epididymal head measures 0.7 x 1.1 x 0.3 cm. Homogeneous echogenicity. Normal vascularity on color Doppler. Incidental note of small 4 mm epididymal cyst. Spermatic Cords: Straight bilaterally. Scrotal Sac: Trace left hydrocele. No varicocele present. Incidental note of scrotal monique on the left measuring 3 mm in diameter. Scrotal Skin: No skin thickening. IMPRESSION: 1. No intratesticular lesion or evidence of torsion. 2. Small left hydrocele. 3. Small left epididymal cyst. Medications: Scheduled: acetaminophen, 500 mg, QID aspirin chewable, 81 mg, DAILY atorvastatin, 40 mg, DAILY citalopram, 20 mg, DAILY Dimethicone-Zinc Oxide, , BID empagliflozin, 10 mg, DAILY ferrous sulfate 324 mg (65 mg elemental), 324 mg, Q48H folic acid, 1 mg, DAILY gabapentin, 300 mg, BID heparin, 5,000 Units, Q8H lidocaine 5 %, 1 Patch, DAILY metoprolol SUCCinate, 50 mg, DAILY Multivitamins with Minerals, 1 Tablet, DAILY nystatin, , BID pantoprazole, 40 mg, DAILY petrolatum, , DAILY ramelteon, 8 mg, QHS sulfamethoxazole-trimethoprim, 1 Tablet, Q12H thiamine, 100 mg, DAILY topiramate, 50 mg, Q12H torsemide, 20 mg, DAILY white petrolatum, , TID Continuous: PRN: diclofenac sodium, 2 g, BID PRN lidocaine, 2 mg, PRN oxyCODONE, 10 mg, Q4H PRN prochlorperazine, 10 mg, Q6H PRN ASSESSMENT Derrick Hobson is a 68 y.o. male with a PMHx notable for HFrEF, Afib, COPD, and treated Hep C as a transfer from [facility] to [facility] on 07/10/23 with epistaxis, but ultimately found to be in multiorganfailure secondary to mixed cardiogenic/distributive shock and transferred here for consideration ofRRT. Now with prolonged hospital course complicated by hypotension, new severe systolic heart failure, AHRF, electrolyte derangements, shock liver, and oliguric acute kidney failure. Now with significant improvements in mental status and kidney function, with last HD session 07/05. Now focusing on titration of GDMT and regaining strength. Complicated by L SFA hematoma, and L scrotum pain and swelling though has remained quite clinically stable the past 72 hours. PLAN B/L scrotum pain and swelling Acute b/l LE edema New onset since 07/29 afternoon. U/S scrotum 07/30 showed left hydrocele and epididymal cyst and incidental finding of scrotal monique. Unclear if this is due to ecchymoses/bleeding given proximity to groin hematoma or epididymitis. Symptoms did not respond to a few doses of bactrim. NT-proBNP markedlyreduced from 28,000 to 3,000 - D/C Bactrim - B/L LE venous ultrasounds without evidence of clots in legs - Given concern vascular problem in pelvis impairing venous/lymphatic return, will likely order CT of A/P - Short-term oxycodone 10 mg IR every 4 hours as needed for pain management - UA positive for lydia albicans, unchanged from prior UA culture Heart failure with improved ejection fraction (EF 20-25% --> 40%) Mixed cardiogenic/distributive shock, resolved EF improved significantly from 20% on admission to 40% on 06/27, to 35-40% on 07/16. NM SPECT stress test 07/18 with fixed defect of the RCA - no indication for revascularization - goal SBP 120-160, heart rate <100 per cardiology - atorvastatin 40mg daily -Titration of GDMT - metoprolol succinate 50 mg daily - Continue empagliflozin 10 mg daily - hold spironolactone, losartan given elevated potassium and soft BP/intolerance to quad GDMT therapy - f/u with outpatient cardiology for HF at discharge - change diet to cardiac with 2 L fluid restriction - torsemide 20 mg started 08/01, will hold further doses JOS: initially ATN 2/2 Shock requiring HD. Was improving to new baseline 1.5, increased to 2.02 today possibly 2/2 bactrim - d/c bactrim as above - daily BMP Recurrent right inguinal/thigh hematoma, stabilized since 07/24 - No left SFA hematoma while in the MICU status post prior CTA and, ultrasounds - Records indicate left inguinal A-line placed at [facility] prior to transfer - Clinical course seems like this resolved/achieved hemostasis, now seems like it has recurred/progressed over the last 24 hours Plan: - DVT prophylaxis heparin 5K q8hr - Continue to hold therapeutic anticoagulation while hospitalized Chronic anemia -Anemia panel labs most consistent with at least a component of JANUSZ, likely multifactorial - s/p 500 mg IV iron sucrose 07/23/2023 and 07/28 - Likely intermittent IV iron sucrose every ~5-7 days while remains hospitalized for goal ~1500 mg total - Continue oral iron supplement daily Recurrent epistaxis, dormant since 07/20 - Patient reports it been happening over the past year 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, 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, had to be treated with multiple Rhino Rocket's, reports undergoing left nares cauterization in the past - Most recent epistaxis occurred while hospitalized ~07/20 Plan: - Petroleum jelly to nares twice daily for moisturization - Discussed with ENT, recommended against acute intervention while hospitalized, recommended outpatient follow-up as well as consideration for AC sparing approaches such as Watchman Persistent Afib (with RVR, resolved) -Was on 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 apixaban 5 mg twice daily, but has been plagued with recurrent epistaxis 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 and prompting this current admission - CHADSVASc score is 4 Plan: - Rate control with metoprolol as above - Holding on restarting 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 DOAC (Apixaban 5mg) given severe anemia recurrent epistaxis and L inguinal/thigh hematoma Severe protein calorie malnutrition NG removed 07/14. All meds and food PO. - Nutrition following - Mighty shakes TID, magic cups BID - Regular diet CHRONIC/STABLE/RESOLVED: AHRF 2/2 hospital acquired pneumonia, resolved: s/p pip-tazo (end 07/13) Mood disorder: 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 citalopram 20 mg ?Neuropathic pain: 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 gabapentin 800mg TID restarted 07/11 at renally adjusted dose COPD: 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 duonebs PRN Candiduria: not treating per ID unless clinical worsening (would do fluconazole) Polysubstance use disorder: hx cocaine use, ?EtOH disorder, ?opioid use Acute toxic metabolic encephalopathy, resolved: delirium precautions CHECKLIST: Consults: None Diet: Cardiac VTE Prophylaxis: heparin 5000units q8h Code status: Full Code Discharge Plan: Needs [facility],ongoing medical complications Elinor Clark Attestation statement: I was present with the medical student for the history, exam, and medical decision making documented. I have personally performed my own physical exam and medical decision making. I have verified and agree with (or have edited) the medical student's documentation. Shanthi Tom MD, PhD PGY-3, Internal Medicine Pager: [phone] [employer] Secure Message Attending Attestation The resident was present with the medical student for the history, exam, and medical decision making documented. I have personally performed my own physical exam and medical decision making on 08/03/23. I have verified and agree with (or have edited in underline) the combined medical student's and resident's documentation. I spent 50 minutes in the direct care of this patient. Neelima Estrada MD 08/04/2023 17:09 * Niecy Reynolds - 08/03/2023 1232 EDT [facility] Department of Case Management and Social Work Case Management Progress Note Patient Name Level of Care and Accommodation Code: Patient Class: Medically Ready: Y/N Derrick G Pilotte Acute General Inpatient yes Primary Dx: Decisional Capacity: Y/N Primary Support/ CareGiver: Advance Directive Cardiogenic shock (HCC-CMS) yes Supports:siblings Advance Directives (For Healthcare) Healthcare Directive: No, patient unable to respond due to condition Information Provided on Healthcare Directives: No Information on Healthcare Directives Requested: No Disposition Information Appropriate to transfer back: Y/N Length of Stay (in days): Estimated Date of D/C: LTC Medicaid Status: [facility] did not accept transfer 39 TBD awaiting [facility] Bed No Primary Care Provider: [facility]/SNF referred: Y/N Bed Offers: Y/N Escalated to Leadership: Y/N Davian Guzman yes no yes Mobility Level: Recommended D/C Location Payor: Bedside Mobility Assessment Tool (BMAT) Bedrest or non-weight bearing orders?: No Assessment Level 1-Sit & Shake: Pass Assessment Level 2-Stretch & Point: Pass Assessment Level 3-Stand: Pass Assessment Level 4-Step: Pass Mobility level determined: Mobility Level 4 use gait belt, walker, crutches, cane, prosthetic(s) Number of caregivers reccommended: 1 Number of caregivers used: 1 Recommended Discharge Destination PT Recommended Discharge Destination: Subacute rehabilitation Payor: MEDICARE / Plan: MEDICARE A/B / Product Type: Medicare GL / Barriers to Discharge [facility] versus [facility] placement Plan Pt declined PT due to pain on 07/30, so [facility] is unlikely (see note from Lidia Diaz). CM reopened alldeclined listings and updated notes in [facility]. CM will continue to monitor the clinical notes, meet with the tt, and regularly check in with the patient throughout their hospital stay to ensure a safe discharge. E-Signature MINERVA Kingston, MShanti Ed. Bark Fitter II Social Work and Case Management 08/03/23 12:32 * Neelima Estrada MD - 08/02/2023 1914 EDT [facility] MED[facility]INE INPATIENT PROGRESS NOTE Service Date: 08/02/23 Admit Date: 06/25/2023 13:23 Reason for Admission: 68 y.o. male admitted with a chief complaint of epistaxis; and now with a principal diagnosis of mixed cardiogenic and distributive shock w/ multi-organ dysfunction. Significant 24-hour events: - Continued L scrotal pain SUBJECTIVE Continues to endorse significant pain in his left groin and testicle which is not significantly changed over last several days. OBJECTIVE Vital Signs: Temp: [36.8 ??C (98.2 ??F)] , Heart Rate: [86 BPM-100 BPM] , Resp: [18] , BP: (96-133)/(70-77) , SpO2: [94 %-97 %] Physical Exam: General: NAD, sitting upright in recliner chair drinking coffee Cardiac: RRR, S1+S2 normal, no murmur Resp: Breathing comfortably on RA, no adventitious lung sounds, no cough Abdomen: Soft, non-tender, non distended, BS present : Left testicle generalized tenderness to palpation, tenderness tracks along spermatic cord up into left inguinal canal area, right teste nontender, no prominent evidence of cellulitis on external scrotum Extremities: Focal area of tense soft mass of left inguinal area with improving overlying ecchymoses, significant medial thick swelling and ecchymoses. LE edema bilaterally to mid sanchez Neuro: Alert and oriented, no focal sensory or motor neurological deficits appreciated, spontaneousmovement of 4 extremities Labs: CBC: Recent Labs 08/02/23 0544 WBC 10.33 RBC 3.01* HGB 9.2* HCT 28.9* MCV 96* MCH 30.6 MCHC 31.8* PLT 291 BMP: Recent Labs 08/02/23 0544 NA 139 K 5.2* CL 104 CO2 21* BUN 25 CREATININE 1.79* CALCIUM 9.6 MG 1.6* Imaging: US SCROTUM WITH LIMITED DUPLEX Result Date: 07/31/2023 Findings/Impression: Right testicle: Arterial and venous Doppler waveforms and color flow are normal in the right testicle. Left testicle: Arterial and venous Doppler waveforms and color flow are normal in the left testicle. GRAYSCALE: Technique: Grayscale ultrasound of the scrotum was performed. Indication for Grayscale: L scrotal pain and swelling, possibly related to resolving L inner thigh hematoma; Findings: Right Testicle: The right testis measures 4.4 x 2.3 x 2.4 cm, for an estimated total testis volume of 12.8 mL. Homogeneous echogenicity. No intratesticular lesion. Right Epididymis: The right epididymal head measures 0.6 x 0.8 x 1.1 cm. Homogeneous echogenicity. Normal vascularity o n color Doppler. Left Testicle: The left testis measures 3.9 x 2.1 x 2.9 cm, for an estimated totaltestis volume of 12.4 mL. Homogeneous echogenicity. No intratesticular lesion. Left Epididymis: Theleft epididymal head measures 0.7 x 1.1 x 0.3 cm. Homogeneous echogenicity. Normal vascularity on color Doppler. Incidental note of small 4 mm epididymal cyst. Spermatic Cords: Straight bilaterally. Scrotal Sac: Trace left hydrocele. No varicocele present. Incidental note of scrotal monique on the left measuring 3 mm in diameter. Scrotal Skin: No skin thickening. IMPRESSION: 1. No intratesticular lesion or evidence of torsion. 2. Small left hydrocele. 3. Small left epididymal cyst. Medications: Scheduled: acetaminophen, 500 mg, QID aspirin chewable, 81 mg, DAILY atorvastatin, 40 mg, DAILY citalopram, 20 mg, DAILY Dimethicone-Zinc Oxide, , BID empagliflozin, 10 mg, DAILY ferrous sulfate 324 mg (65 mg elemental), 324 mg, Q48H folic acid, 1 mg, DAILY gabapentin, 300 mg, BID heparin, 5,000 Units, Q8H lidocaine 5 %, 1 Patch, DAILY magnesium sulfate, 2 g, Now magnesium sulfate, 2,000 mg, Now metoprolol SUCCinate, 50 mg, DAILY Multivitamins with Minerals, 1 Tablet, DAILY nystatin, , BID pantoprazole, 40 mg, DAILY petrolatum, , DAILY ramelteon, 8 mg, QHS sulfamethoxazole-trimethoprim, 1 Tablet, Q12H thiamine, 100 mg, DAILY topiramate, 50 mg, Q12H white petrolatum, , TID Continuous: PRN: diclofenac sodium, 2 g, BID PRN lidocaine, 2 mg, PRN oxyCODONE, 10 mg, Q4H PRN prochlorperazine, 10 mg, Q6H PRN ASSESSMENT Derrick Hobson is a 68 y.o. male with a PMHx notable for HFrEF, Afib, COPD, and treated Hep C as a transfer from [facility] to [facility] on 07/10/23 with epistaxis, but ultimately found to be in multiorganfailure secondary to mixed cardiogenic/conservative shock and transferred here for consideration ofRRT. Now with prolonged hospital course complicated by hypotension, new severe systolic heart failure, AHRF, electrolyte derangements, shock liver, and oliguric acute kidney failure. Now with significant improvements in mental status and kidney function, with last HD session 07/05. Now focusing on titration of GDMT and regaining strength. Complicated by L SFA hematoma, and L scrotum pain and swelling though has remained quite clinically stable the past 72 hours. PLAN L scrotum pain and swelling New onset since 07/29 afternoon. U/S scrotum 07/30 showed left hydrocele and epididymal cyst and incidental finding of scrotal monique. Unclear if this is due to ecchymoses/bleeding given proximity to groin hematoma or epididymitis. - Start empiric Bactrim 1 DS twice daily (07/31- ) - Short-term oxycodone 10 mg IR every 4 hours as needed for pain management Heart failure with improved ejection fraction (EF 20-25% --> 40%) Mixed cardiogenic/distributive shock, resolved EF improved significantly from 20% on admission to 40% on 06/27, to 35-40% on 07/16. NM SPECT stress test 07/18 with fixed defect of the RCA - no indication for revascularization - goal SBP 120-160, heart rate <100 per cardiology - atorvastatin 40mg daily -Titration of GDMT -metoprolol succinate 50 mg daily -Continue empagliflozin 10 mg daily -hold spironolactone, losartan given elevated potassium and soft BP/intolerance to quad GDMT therapy - f/u with outpatient cardiology for HF at discharge -change diet to cardiac with 2 L fluid restriction -start torsemide 20 mg tomorrow. Chronic anemia -Anemia panel labs most consistent with at least a component of JANUSZ, likely multifactorial - s/p 500 mg IV iron sucrose 07/23/2023 and 07/28 - Likely intermittent IV iron sucrose every ~5-7 days while remains hospitalized for goal ~1500 mg total - Continue oral iron supplement daily Recurrent right inguinal/thigh hematoma, stabilized since 07/24 - No left SFA hematoma while in the MICU status post prior CTA and, ultrasounds - Records indicate left inguinal A-line placed at [facility] prior to transfer - Clinical course seems like this resolved/achieved hemostasis, now seems like it has recurred/progressed over the last 24 hours Plan: - DVT prophylaxis heparin 5K q8hr - Continue to hold therapeutic anticoagulation while hospitalized Recurrent epistaxis, dormant since 07/20 - Patient reports it been happening over the past year 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, 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, had to be treated with multiple Rhino Rocket's, reports undergoing left nares cauterization in the past - Most recent epistaxis occurred while hospitalized ~07/20 Plan: - Petroleum jelly to nares twice daily for moisturization - Discussed with ENT, recommended against acute intervention while hospitalized, recommended outpatient follow-up as well as consideration for AC sparing approaches such as Watchman Persistent Afib (with RVR, resolved) -Was on 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 apixaban 5 mg twice daily, but has been plagued with recurrent epistaxis 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 and prompting this current admission - CHADSVASc score is 4 Plan: - Rate control with metoprolol as above - Holding on restarting 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 DOAC (Apixaban 5mg) given severe anemia recurrent epistaxis and L inguinal/thigh hematoma Severe protein calorie malnutrition NG removed 07/14. All meds and food PO. - Nutrition following - Mighty shakes TID, magic cups BID - Regular diet CHRONIC/STABLE/RESOLVED: AHRF 2/2 hospital acquired pneumonia, resolved: s/p pip-tazo (end 07/13) Mood disorder: 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 citalopram 20 mg ?Neuropathic pain: 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 gabapentin 800mg TID restarted 07/11 at renally adjusted dose COPD: 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 duonebs PRN Candiduria: not treating per ID unless clinical worsening (would do fluconazole) Polysubstance use disorder: hx cocaine use, ?EtOH disorder, ?opioid use Acute toxic metabolic encephalopathy, resolved: delirium precautions CHECKLIST: Consults: None Diet: Cardiac VTE Prophylaxis: heparin 5000units q8h Code status: Full Code Discharge Plan: Needs ARAMIS, now medically stable. Neelima Estrada MD * Madonna Husain RD - 08/02/2023 4462 EDT Nutrition Assessment Note: Reassessment BACKGROUND DATA Subjective: Patient reports his appetite is down a little this week due to unspecified pain and discomfort, such as headaches and swelling in his feet. Patient declined offer to re-start nutrition supplements. He has taken them earlier this admission and dislikes. Patient requesting irish yogurt and cookies tosnack on tonight. RD called kitchen to request these items be sent with dinner tray. Current Nutrition Orders: Diet-Regular--Menu Assist--nutrition offering milk TID with meals and custard BID with lunch and dinner daily Physical Findings: Digestive Systems: Last BM 08/01/23 Dentition: Teeth: Dentures upper per flowsheets Edema: +3 pitting lower extremities Skin: MASD/IAD Allergies on file: Clonidine Anthropometrics: Height: 182.9 cm (72) Wt Readings from Last 6 Encounters: 08/01/23 65.8 kg (145 lb) Weights Filed This Admission 06/25/23 1340 06/28/23 0900 06/29/23 1333 06/30/23 0815 Weight: 80.3 kg (177 lb) 80.3 kg (177 lb) 80.2 kg (176 lb 12.9 oz) 80.7 kg (177 lb 14.6 oz) 07/02/23 0949 07/02/23 1410 07/04/23 1011 07/06/23 0600 Weight: 81 kg (178 lb 9.2 oz) 80 kg (176 lb 5.9 oz) 80 kg (176 lb 5.9 oz) 70.2 kg (154 lb 12.2 oz) 07/06/23 0923 07/09/23 0611 07/10/23 0553 07/12/23 0548 Weight: 70.2 kg (154 lb 12.2 oz) 60.1 kg (132 lb 7.9 oz) 60 kg (132 lb 4.4 oz) 60.1 kg (132 lb 7.9 oz) 07/17/23 0929 07/18/23 0448 07/19/23 0415 07/19/23 0936 Weight: 59.9 kg (132 lb) 66.2 kg (145 lb 15.1 oz) 66.3 kg (146 lb 2.6 oz) 66.2 kg (146 lb) 07/20/23 0600 07/21/23 0444 07/22/23 0500 07/23/23 0515 Weight: 71.7 kg (158 lb 1.1 oz) 67.9 kg (149 lb 11.1 oz) 68.6 kg (151 lb 3.8 oz) 68.9 kg (151 lb 14.4 oz) 07/24/23 0600 07/25/23 0431 07/25/23 0600 07/27/23 0645 Weight: 68 kg (149 lb 14.6 oz) 66 kg (145 lb 8.1 oz) 64.8 kg (142 lb 13.7 oz) 69 kg (152 lb 1.9 oz) 07/28/23 0603 07/30/23 0506 08/01/23 0646 Weight: 69.9 kg (154 lb) 68.6 kg (151 lb 4.8 oz) 65.8 kg (145 lb) BMI: 19.67 Pertinent Medications: Current Facility-Administered Medications Medication Route Frequency acetaminophen (TYLENOL) tablet 500 mg oral QID aspirin chewable tablet 81 mg oral DAILY atorvastatin (LIPITOR) tablet 40 mg oral DAILY citalopram (CELEXA) tablet 20 mg oral DAILY diclofenac sodium gel 2 g topical BID PRN Dimethicone-Zinc Oxide 20-25 % spray,non-aerosol topical BID empagliflozin (JARDIANCE) tablet 10 mg oral DAILY ferrous sulfate 324 mg (65 mg elemental) EC tablet 324 mg oral Q48H folic acid (FOLVITE) tablet 1 mg oral DAILY gabapentin (NEURONTIN) capsule 300 mg oral BID heparin injection 5,000 Units subcutaneous Q8H lidocaine (PF) 10 mg/mL (1 %) injection 2 mg intradermal PRN lidocaine 5 % (LIDODERM) patch 1 Patch transdermal DAILY metoprolol SUCCinate (TOPROL-XL) tablet 50 mg oral DAILY fxqobbtz-wdo-djlf fum-folic ac 7.5 mg iron-400 mcg tablet 1 Tablet oral DAILY nystatin (MYCOSTATIN) powder topical BID oxyCODONE (ROXICODONE) immediate release tablet 10 mg oral Q4H PRN pantoprazole (PROTONIX) tablet 40 mg oral DAILY petrolatum (A[employer]) 41 % ointment topical DAILY prochlorperazine (COMPAZINE) tablet 10 mg oral Q6H PRN ramelteon (ROZEREM) tablet 8 mg oral QHS sulfamethoxazole-trimethoprim (BACTRIM/CO-TRIMOXAZOLE DS) 800-160 mg per tablet 1 Tablet oral Q12H thiamine (VITAMIN B1) tablet 100 mg oral DAILY topiramate (TOPAMAX) tablet 50 mg oral Q12H white petrolatum 42 % ointment topical TID Pertinent Labs: Lab Results Component Value Date/Time NA 139 08/02/2023 05:44 K 5.2 (H) 08/02/2023 05:44 CO2 21 (L) 08/02/2023 05:44 CL 104 08/02/2023 05:44 BUN 25 08/02/2023 05:44 CREATININE 1.79 (H) 08/02/2023 05:44 GLUCOSEPOC 119 (H) 07/20/2023 10:53 CALCIUM 9.6 08/02/2023 05:44 PHOS 4.6 (H) 07/18/2023 04:38 MG 1.6 (L) 08/02/2023 05:44 Lab Results Component Value Date/Time FOLATE >24.0 07/23/2023 05:15 [id number] 1,208 (H) 07/23/2023 05:15 Lab Results Component Value Date/Time HGB 9.2 (L) 08/02/2023 05:44 HCT 28.9 (L) 08/02/2023 05:44 IRON 32 (L) 07/23/2023 05:15 TIBC 341 07/23/2023 05:15 MCV 96 (H) 08/02/2023 05:44 FERRITIN 42 07/23/2023 05:15 LABIRON 9 (L) 07/23/2023 05:15 Estimated Nutrition Needs: 25-30 kcal/kg (using 70.2 kg) = 2514-8936 kcals/day 1.2 g/kg protein (using 70.2 kg) = 85 g protein/day Fluid per medical team discretion Estimated Nutrition Intake: 25-100 % of meal trays ASSESSMENT: Patient with variable po intake at times, however overall appears to be eating reasonably well. Offering custard and milk with meals as source of additional calories/protein. Patient on appropriate vitamin/mineral supplements. Nutrition Risk Level: Moderate (2) MEDICAL NUTRITION THERAPY - UPDATED PLAN -Nutrition offering milk TID with meals and custard BID with lunch and dinner daily -Continue menu assist -Trend weights -Monitor po intake, stool patten and skin -RD following Madonna Husain RD, CD (Call PAS or use [employer] to page RD covering this unit) * Lidia Diaz RN - 08/01/2023 1642 EDT Referral received 07/30. EMR reviewed today. Admitted 06/25/23 with epistaxis and now with prinicipal dx of mixed cardiogenic and distributive shock w/ multi-organ dysfunction. PT on 07/23 recommended ARAMIS OT on 07/26 recommended ARAMIS Patient declined PT today d/t pain AR referral is discontinued at this time Unlikely based on this review that the patient could tolerate an intensive acute rehab program. Patient would need to demonstrate that he could tolerate 3hrs of therapy @ least 5 x a week * Paulina Wallace, PT - 08/01/2023 1033 EDT [facility] Acute Therapy [facility] Contact Note Date of Service: 08/01/2023 Patient pleasant sitting up in chair. He is open to PT but declines today as he reports that his pain is too severe to walk. He reports that MD was ordering additional pain medications and scrotal sling. Will follow up in 1-2 days to see if able to tolerate PT activity progression. Paulina Wallace, PT 08/01/2023 10:34 * Neelima Esrtada MD - 08/01/[address] [facility] MEDICINE INPATIENT PROGRESS NOTE Service Date: 08/01/23 Admit Date: 06/25/2023 13:23 Reason for Admission: 68 y.o. male admitted with a chief complaint of epistaxis; and now with a principal diagnosis of mixed cardiogenic and distributive shock w/ multi-organ dysfunction. Significant 24-hour events: - Continued L scrotal pain SUBJECTIVE Mainly concerned today about continuation of left testicular and inguinal pain. The pain was so significant that trouble finding a comfortable position, interfered with his sleep. He is requesting stronger analgesia, and inquiring for something to do to help relieve the pain. OBJECTIVE Vital Signs: Temp: [36.7 ??C (98 ??F)-37.1 ??C (98.8 ??F)] , Heart Rate: [71 BPM-110 BPM] , Resp: [16-18] , BP: (103-122)/(58-87) , SpO2: [97 %-99 %] Physical Exam: General: NAD, sitting upright in recliner chair drinking coffee HEENT: NC/AT, MMM, no scleral icterus Neck: Supple, no cervical lymphadenopathy Cardiac: RRR, S1+S2 normal, no murmur Resp: Breathing comfortably on RA, no adventitious lung sounds, no cough Abdomen: Soft, non-tender, non distended, BS present : Left testicle generalized tenderness to palpation, tenderness tracks along spermatic cord up into left inguinal canal area, right teste nontender, no prominent evidence of cellulitis on external scrotum Extremities: Focal area of tense soft mass of left inguinal area with improving overlying ecchymoses, no LE edema, no cyanosis Neuro: Alert and oriented, no focal sensory or motor neurological deficits appreciated, spontaneousmovement of 4 extremities Skin: No rashes, lesions, petechiae on exposed skin. Hematoma on LLE continues to improve. Tenderness to palpation of L scrotum and testes, new since 07/29 Lines: PICC removed 07/29. Bandage in place without swelling or tenderness. Labs: CBC: Recent Labs 07/30/23 0624 WBC 8.31 RBC 2.56* HGB 7.8* HCT 24.3* MCV 95 MCH 30.5 MCHC 32.1* PLT 248 BMP: Recent Labs 07/30/23 0624 NA 139 K 4.5 CL 109 CO2 20* BUN 22 CREATININE 1.36* CALCIUM 9.0 MG 1.4* Imaging: US SCROTUM WITH LIMITED DUPLEX Result Date: 07/31/2023 Findings/Impression: Right testicle: Arterial and venous Doppler waveforms and color flow are normal in the right testicle. Left testicle: Arterial and venous Doppler waveforms and color flow are normal in the left testicle. GRAYSCALE: Technique: Grayscale ultrasound of the scrotum was performed. Indication for Grayscale: L scrotal pain and swelling, possibly related to resolving L inner thigh hematoma; Findings: Right Testicle: The right testis measures 4.4 x 2.3 x 2.4 cm, for an estimated total testis volume of 12.8 mL. Homogeneous echogenicity. No intratesticular lesion. Right Epididymis: The right epididymal head measures 0.6 x 0.8 x 1.1 cm. Homogeneous echogenicity. Normal vascularity o n color Doppler. Left Testicle: The left testis measures 3.9 x 2.1 x 2.9 cm, for an estimated totaltestis volume of 12.4 mL. Homogeneous echogenicity. No intratesticular lesion. Left Epididymis: Theleft epididymal head measures 0.7 x 1.1 x 0.3 cm. Homogeneous echogenicity. Normal vascularity on color Doppler. Incidental note of small 4 mm epididymal cyst. Spermatic Cords: Straight bilaterally. Scrotal Sac: Trace left hydrocele. No varicocele present. Incidental note of scrotal monique on the left measuring 3 mm in diameter. Scrotal Skin: No skin thickening. IMPRESSION: 1. No intratesticular lesion or evidence of torsion. 2. Small left hydrocele. 3. Small left epididymal cyst. Medications: Scheduled: acetaminophen, 500 mg, QID aspirin chewable, 81 mg, DAILY atorvastatin, 40 mg, DAILY citalopram, 20 mg, DAILY Dimethicone-Zinc Oxide, , BID empagliflozin, 10 mg, DAILY ferrous sulfate 324 mg (65 mg elemental), 324 mg, Q48H folic acid, 1 mg, DAILY gabapentin, 300 mg, BID heparin, 5,000 Units, Q8H lidocaine 5 %, 1 Patch, DAILY metoprolol SUCCinate, 50 mg, DAILY Multivitamins with Minerals, 1 Tablet, DAILY nystatin, , BID pantoprazole, 40 mg, DAILY petrolatum, , DAILY ramelteon, 8 mg, QHS thiamine, 100 mg, DAILY topiramate, 50 mg, Q12H white petrolatum, , TID Continuous: PRN: diclofenac sodium, 2 g, BID PRN lidocaine, 2 mg, PRN prochlorperazine, 10 mg, Q6H PRN ASSESSMENT Derrick Hobson is a 68 y.o. male with a PMHx notable for HFrEF, Afib, COPD, and treated Hep C as a transfer from [facility] to [facility] on 07/10/23 with epistaxis, but ultimately found to be in multiorganfailure secondary to mixed cardiogenic/conservative shock and transferred here for consideration ofRRT. Now with prolonged hospital course complicated by hypotension, new severe systolic heart failure, AHRF, electrolyte derangements, shock liver, and oliguric acute kidney failure. Now with significant improvements in mental status and kidney function, with last HD session 07/05. Now focusing on titration of GDMT and regaining strength. Ongoing complications have included symptomatic lightheaded/dizziness, intermittent epistaxis, L SFA hematoma, and L scrotum pain and swelling though has remained quite clinically stable the past 72 hours. PLAN L scrotum pain and swelling New onset since 07/29 afternoon Plan: - U/S scrotum 07/30 showed left hydrocele and epididymal cyst and incidental finding of scrotal monique - UA with reflex to culture for possible epididymitis - Start empiric Bactrim 1 DS twice daily (07/31- ) - Scrotal sling for support - Short-term oxycodone 10 mg IR every 4 hours as needed for pain management Episodic lightheadedness & nausea, slowly improving -With some correlation with position (sitting up, standing,) and some correlation with eating (postprandial) - DDx: vaso-vagal, orthostatic, beta-clyde intolerance, symptomatic CHF - Formal orthostatics 07/26 borderline and not tentatively positive, though was subjectively symptomatic Plan: - CTM - No further up-titration of CHF medications in the near term - As needed Compazine 10 mg p.o. every 6 hours Chronic anemia -Anemia panel labs most consistent with at least a component of JANUSZ, likely multifactorial - s/p 500 mg IV iron sucrose 07/23/2023 and 07/28 - Likely intermittent IV iron sucrose every ~5-7 days while remains hospitalized for goal ~1500 mg total - Continue oral iron supplement daily Recurrent right inguinal/thigh hematoma, stabilized since 07/24 - No left SFA hematoma while in the MICU status post prior CTA and, ultrasounds - Records indicate left inguinal A-line placed at [facility] prior to transfer - Clinical course seems like this resolved/achieved hemostasis, now seems like it has recurred/progressed over the last 24 hours Plan: - DVT prophylaxis heparin 5K q8hr - Continue to hold therapeutic anticoagulation while hospitalized Recurrent epistaxis, dormant since 07/20 - Patient reports it been happening over the past year 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, 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, had to be treated with multiple Rhino Rocket's, reports undergoing left nares cauterization in the past - Most recent epistaxis occurred while hospitalized ~07/20 Plan: - Petroleum jelly to nares twice daily for moisturization - Discussed with ENT, recommended against acute intervention while hospitalized, recommended outpatient follow-up as well as consideration for AC sparing approaches such as Watchman Heart failure with improved ejection fraction (EF 20-25% --> 40%) Mixed cardiogenic/distributive shock, resolved EF improved significantly from 20% on admission to 40% on 06/27, to 35-40% on 07/16. NM SPECT stress test 07/18 with fixed defect of the RCA - no indication for revascularization - goal SBP 120-160, heart rate <100 per cardiology - atorvastatin 40mg daily -Titration of GDMT -metoprolol succinate 50 mg daily -Continue empagliflozin 10 mg daily -hold spironolactone, losartan given elevated potassium and soft BP/intolerance to quad GDMT therapy - f/u with outpatient cardiology for HF at discharge Persistent Afib (with RVR, resolved) -Was on 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 apixaban 5 mg twice daily, but has been plagued with recurrent epistaxis 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 and prompting this current admission - CHADSVASc score is 4 Plan: - Rate control with metoprolol as above - Holding on restarting 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 DOAC (Apixaban 5mg) given severe anemia recurrent epistaxis and L inguinal/thigh hematoma Severe protein calorie malnutrition NG removed 07/14. All meds and food PO. - Nutrition following - Mighty shakes TID, magic cups BID - Regular diet CHRONIC/STABLE/RESOLVED: AHRF 2/2 hospital acquired pneumonia, resolved: s/p pip-tazo (end 07/13) Mood disorder: 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 citalopram 20 mg ?Neuropathic pain: 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 gabapentin 800mg TID restarted 07/11 at renally adjusted dose COPD: 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 duonebs PRN Candiduria: not treating per ID unless clinical worsening (would do fluconazole) Polysubstance use disorder: hx cocaine use, ?EtOH disorder, ?opioid use Acute toxic metabolic encephalopathy, resolved: delirium precautions CHECKLIST: Consults: None Diet: DIET REGULAR VTE Prophylaxis: heparin 5000units q8h Code status: Full Code PT/OT: Recommending AR Discharge Plan: Listed for acute rehab per PT, no offers yet. Will ask for skilled status today 07/30, accepted. Elinor Clark, MS3 Attestation statement: I was present with the medical student for the history, exam, and medical decision making documented. I have personally performed my own physical exam and medical decision making. I have verified and agree with (or have edited) the medical student's documentation. Shanthi Tom MD, PhD PGY-3, Internal Medicine Pager: [phone] [place] Attending Attestation The resident was present with the medical student for the history, exam, and medical decision making documented. I have personally performed my own physical exam and medical decision making. I have verified and agree with (or have edited in underline) the combined medical student's and resident's documentation. Neelima Estrada MD 08/01/2023 22:38 * Frank Alcantara RN - 08/01/2023 0649 EDT Problem: Daily Care Plan Goals Goal: Care Plan Documentation Outcome: Ongoing Flowsheets (Taken 08/01/2023 0100) Area of Focus: Safety Problem: SKIN INTEGRITY Goal: Skin integrity will improve or be maintained Outcome: Ongoing Data: Assumed patient care at 1900, sitting in chair c/o scrotum pain and nausea. Compazine and Tylenol administered. Action: Vital signs taken, medication given, hourly rounding provided. Response: In bed resting comfortable, call light within reach. FRANK ALCANTARA RN 08/01/2023 4:14 * Rubaelvie Niecy - 07/31/2023 1050 EDT [facility] Department of Case Management and Social Work Case Management Progress Note Patient Name Level of Care and Accommodation Code: Patient Class: Medically Ready: Y/N Derrick G Pilotte Acute General Inpatient yes Primary Dx: Decisional Capacity: Y/N Primary Support/ CareGiver: Advance Directive Cardiogenic shock (HCC-CMS) yes Supports:siblings Advance Directives (For Healthcare) Healthcare Directive: No, patient unable to respond due to condition Information Provided on Healthcare Directives: No Information on Healthcare Directives Requested: No Disposition Information Appropriate to transfer back: Y/N Length of Stay (in days): Estimated Date of D/C: LTC Medicaid Status: [facility] did not accept transfer 36 TBD awaiting ARAMIS Bed No Primary Care Provider: AR/ARAMIS/SNF referred: Y/N Bed Offers: Y/N Escalated to Leadership: Y/N Davian Guzman yes no yes Mobility Level: Recommended D/C Location Payor: Bedside Mobility Assessment Tool (BMAT) Bedrest or non-weight bearing orders?: No Assessment Level 1-Sit & Shake: Pass Assessment Level 2-Stretch & Point: Pass Assessment Level 3-Stand: Pass Assessment Level 4-Step: Pass Mobility level determined: Mobility Level 4 use gait belt, walker, crutches, cane, prosthetic(s) Number of caregivers reccommended: 1 Number of caregivers used: 1 Recommended Discharge Destination PT Recommended Discharge Destination: Subacute rehabilitation Payor: MEDICARE / Plan: MEDICARE A/B / Product Type: Medicare GL / Barriers to Discharge AR placement Plan PT now recommends acute rehab for this pt. CM reached out to Lidia Diaz to add pt to list to be assessed for Tanya Gudino. [facility] in to see if there is updated discharge date yet. Let her know of recommendation for acute rehab. Also, let her know that pt's dentures are missing. She stated that a replacement is something she can help him with if he engages with home health services post discharge. Addendum: Otoe from Shanthi Tom MD that pt's dentures were found here. E-Signature MINERVA Kingston, M. Ed. [employer] Social Work and Case Management 07/31/23 10:51 * Neelima Estrada MD - 07/31/[address] [facility] MEDICINE INPATIENT PROGRESS NOTE Service Date: 07/31/23 Admit Date: 06/25/2023 13:23 Reason for Admission: 68 y.o. male admitted with a chief complaint of epistaxis; and now with a principal diagnosis of mixed cardiogenic and distributive shock w/ multi-organ dysfunction. Significant 24-hour events: - New onset L scrotal pain/tenderness and swelling - PICC line removed 07/29 SUBJECTIVE Geovani continues to be in good spirits despite frustration over prolonged hospital stay. Has new onset scrotal pain and swelling that he says is interfering with walking and sitting. Did not experience scrotal discomfort yesterday during his PT session. Also describes black floaters in his vision lb t are new. His nausea is improving and he was able to enjoy drinking coffee and eating simple foodslike custard yesterday. Remains motivated to continue to improve, looking forward to hopefully being discharged to a [facility] as soon as bed offer available. OBJECTIVE Vital Signs: Temp: [37.3 ??C (99.1 ??F)-37.6 ??C (99.6 ??F)] , Heart Rate: [89 BPM-95 BPM] , Resp: [18] , BP: (101-129)/(61-84) , SpO2: [95 %-96 %] Physical Exam: General: NAD, sitting upright in recliner chair drinking coffee HEENT: NC/AT, MMM, no scleral icterus Neck: Supple, no cervical lymphadenopathy Cardiac: RRR, S1+S2 normal, no murmur Resp: Breathing comfortably on RA, no adventitious lung sounds, no cough Abdomen: Soft, non-tender, non distended, BS present Extremities: Focal area of tense soft mass of left inguinal area with overlying ecchymoses, no LE edema, no cyanosis Neuro: Alert and oriented, no focal sensory or motor neurological deficits appreciated, spontaneousmovement of 4 extremities Skin: No rashes, lesions, petechiae on exposed skin. Hematoma on LLE continues to improve. Tenderness to palpation of L scrotum and testes, new since 07/29 Lines: PICC removed 07/29. Bandage in place without swelling or tenderness. Labs: CBC: Recent Labs 07/30/23 0624 WBC 8.31 RBC 2.56* HGB 7.8* HCT 24.3* MCV 95 MCH 30.5 MCHC 32.1* PLT 248 BMP: Recent Labs 07/30/23 0624 NA 139 K 4.5 CL 109 CO2 20* BUN 22 CREATININE 1.36* CALCIUM 9.0 MG 1.4* Imaging: US SCROTUM WITH LIMITED DUPLEX Result Date: 07/31/2023 Findings/Impression: Right testicle: Arterial and venous Doppler waveforms and color flow are normal in the right testicle. Left testicle: Arterial and venous Doppler waveforms and color flow are normal in the left testicle. GRAYSCALE: Technique: Grayscale ultrasound of the scrotum was performed. Indication for Grayscale: L scrotal pain and swelling, possibly related to resolving L inner thigh hematoma; Findings: Right Testicle: The right testis measures 4.4 x 2.3 x 2.4 cm, for an estimated total testis volume of 12.8 mL. Homogeneous echogenicity. No intratesticular lesion. Right Epididymis: The right epididymal head measures 0.6 x 0.8 x 1.1 cm. Homogeneous echogenicity. Normal vascularity o n color Doppler. Left Testicle: The left testis measures 3.9 x 2.1 x 2.9 cm, for an estimated totaltestis volume of 12.4 mL. Homogeneous echogenicity. No intratesticular lesion. Left Epididymis: Theleft epididymal head measures 0.7 x 1.1 x 0.3 cm. Homogeneous echogenicity. Normal vascularity on color Doppler. Incidental note of small 4 mm epididymal cyst. Spermatic Cords: Straight bilaterally. Scrotal Sac: Trace left hydrocele. No varicocele present. Incidental note of scrotal monique on the left measuring 3 mm in diameter. Scrotal Skin: No skin thickening. IMPRESSION: 1. No intratesticular lesion or evidence of torsion. 2. Small left hydrocele. 3. Small left epididymal cyst. Medications: Scheduled: acetaminophen, 500 mg, QID aspirin chewable, 81 mg, DAILY atorvastatin, 40 mg, DAILY citalopram, 20 mg, DAILY Dimethicone-Zinc Oxide, , BID empagliflozin, 10 mg, DAILY ferrous sulfate 324 mg (65 mg elemental), 324 mg, Q48H folic acid, 1 mg, DAILY gabapentin, 300 mg, BID heparin, 5,000 Units, Q8H lidocaine 5 %, 1 Patch, DAILY metoprolol SUCCinate, 50 mg, DAILY Multivitamins with Minerals, 1 Tablet, DAILY nystatin, , BID pantoprazole, 40 mg, DAILY petrolatum, , DAILY ramelteon, 8 mg, QHS thiamine, 100 mg, DAILY topiramate, 50 mg, Q12H white petrolatum, , TID Continuous: PRN: diclofenac sodium, 2 g, BID PRN lidocaine, 2 mg, PRN prochlorperazine, 10 mg, Q6H PRN ASSESSMENT Derrick Hobson is a 68 y.o. male with a PMHx notable for HFrEF, Afib, COPD, and treated Hep C as a transfer from [facility] to [facility] on 07/10/23 with epistaxis, but ultimately found to be in multiorganfailure secondary to mixed cardiogenic/conservative shock and transferred here for consideration ofRRT. Now with prolonged hospital course complicated by hypotension, new severe systolic heart failure, AHRF, electrolyte derangements, shock liver, and oliguric acute kidney failure. Now with significant improvements in mental status and kidney function, with last HD session 07/05. Now focusing on titration of GDMT and regaining strength. Ongoing complications have included symptomatic lightheaded/dizziness, intermittent epistaxis, L SFA hematoma, and L scrotum pain and swelling though has remained quite clinically stable the past 72 hours. PLAN Episodic lightheadedness & nausea, slowly improving -With some correlation with position (sitting up, standing,) and some correlation with eating (postprandial) - DDx: vaso-vagal, orthostatic, beta-clyde intolerance, symptomatic CHF - Formal orthostatics 07/26 borderline and not tentatively positive, though was subjectively symptomatic Plan: - CTM - No further up-titration of CHF medications in the near term - As needed Compazine 10 mg p.o. every 6 hours Chronic anemia -Anemia panel labs most consistent with at least a component of JANUSZ, likely multifactorial - s/p 500 mg IV iron sucrose 07/23/2023 and 07/28 - Likely intermittent IV iron sucrose every ~5-7 days while remains hospitalized for goal ~1500 mg total - Continue oral iron supplement daily L scrotum pain and swelling New onset since 07/29 afternoon Plan: - U/S scrotum 07/30 showed left hydrocele and epididymal cyst and incidental finding of scrotal monique -CTM - acetaminophen for pain control Recurrent right inguinal/thigh hematoma, stabilized since 07/24 - No left SFA hematoma while in the MICU status post prior CTA and, ultrasounds - Records indicate left inguinal A-line placed at [facility] prior to transfer - Clinical course seems like this resolved/achieved hemostasis, now seems like it has recurred/progressed over the last 24 hours Plan: - DVT prophylaxis heparin 5K q8hr - Continue to hold therapeutic anticoagulation while hospitalized Recurrent epistaxis, dormant since 07/20 - Patient reports it been happening over the past year 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, 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, had to be treated with multiple Rhino Rocket's, reports undergoing left nares cauterization in the past - Most recent epistaxis occurred while hospitalized ~07/20 Plan: - Petroleum jelly to nares twice daily for moisturization - Discussed with ENT, recommended against acute intervention while hospitalized, recommended outpatient follow-up as well as consideration for AC sparing approaches such as Watchman Heart failure with improved ejection fraction (EF 20-25% --> 40%) Mixed cardiogenic/distributive shock, resolved EF improved significantly from 20% on admission to 40% on 06/27, to 35-40% on 07/16. NM SPECT stress test 07/18 with fixed defect of the RCA - no indication for revascularization - goal SBP 120-160, heart rate <100 per cardiology - atorvastatin 40mg daily -Titration of GDMT -metoprolol succinate 50 mg daily -Continue empagliflozin 10 mg daily -hold spironolactone, losartan given elevated potassium and soft BP/intolerance to quad GDMT therapy - f/u with outpatient cardiology for HF at discharge Persistent Afib (with RVR, resolved) -Was on 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 apixaban 5 mg twice daily, but has been plagued with recurrent epistaxis 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 and prompting this current admission - CHADSVASc score is 4 Plan: - Rate control with metoprolol as above - Holding on restarting 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 DOAC (Apixaban 5mg) given severe anemia recurrent epistaxis and L inguinal/thigh hematoma Severe protein calorie malnutrition NG removed 07/14. All meds and food PO. - Nutrition following - Mighty shakes TID, magic cups BID - Regular diet CHRONIC/STABLE/RESOLVED: AHRF 2/2 hospital acquired pneumonia, resolved: s/p pip-tazo (end 07/13) Mood disorder: 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 citalopram 20 mg ?Neuropathic pain: 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 gabapentin 800mg TID restarted 07/11 at renally adjusted dose COPD: 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 duonebs PRN Candiduria: not treating per ID unless clinical worsening (would do fluconazole) Polysubstance use disorder: hx cocaine use, ?EtOH disorder, ?opioid use Acute toxic metabolic encephalopathy, resolved: delirium precautions CHECKLIST: Consults: None Diet: DIET REGULAR VTE Prophylaxis: heparin 5000units q8h Code status: Full Code PT/OT: Recommending [facility] Discharge Plan: Listed for acute rehab per PT, no offers yet. Will ask for skilled status today 07/30. PICC line removed. Elinor Clark, MS3 Attestation statement: I was present with the medical student for the history, exam, and medical decision making documented. I have personally performed my own physical exam and medical decision making. I have verified and agree with (or have edited) the medical student's documentation. Shanthi Tom MD, PhD PGY-3, Internal Medicine Pager: [phone] [employer] Message Attending Attestation The resident was present with the medical student for the history, exam, and medical decision making documented. I have personally performed my own physical exam and medical decision making. I have verified and agree with (or have edited in underline) the combined medical student's and resident's documentation. Neelima Estrada MD 07/31/2023 17:15 * Frank Alcantara RN - 07/31/2023 2215 EDT Problem: High Fall Risk: Goal: Patient Will Remain Free from Fall-Related Injury Outcome: Ongoing Problem: Daily Care Plan Goals Goal: Care Plan Documentation Outcome: Ongoing Problem: SKIN INTEGRITY Goal: Skin integrity will improve or be maintained Outcome: Ongoing Data: Patient is alert and oriented X 3 no sign of acute distress noted. Continent of bowel/bladderuses the urinal/commode. Action: Vital signs taken, medication given. Hourly rounding continues. Response: Safety measures in place, call light within reach. FRANK ALCANTARA RN 07/31/2023 0:43 * Duncan Kimolamide Morales, PT - 07/30/2023 1342 EDT [facility] Therapy Acute Therapies [facility] Physical Therapy Encounter Note Date of Service: 07/30/2023 Subjective/Objective Subjective It felt wonderful to go outside and get some fresh air Objective Intervention completed today: Time: 1255 Total treatment time: 30 minutes. Timed code treatment minutes: 30 BP taken by nrg just prior to PT arrival 100/63 BP after amb 101/61 (dizziness ~6-7/10 during amb at end of distance prior to sitting). Became a little wobbly when dizzy. Pt received up in recliner chair, willing to work. Very pleasant Therapeutic Activity: Bed mobility: NE Transfers; Sit <> stand from recliner chair and wheelchair with contact guard assist with RW with min verbal cues for hand placement. Slightly effortful, pt c/o discomfort L groin as well as giselle-area. Reports being Raw. Recliner chair<>wheel chair, with pt able to take several steps without RW, holding on lightly to tray table and stepping around to wheel chair. Wheeled into hallway. Ambulation: ~80' x 2 trials as well as ~30' x 2 trials with RW with min contact assistance with pt demonstrating reciprocal gait, wide base of support, not leaning as heavily through RW today, CLOSE chair follow. Pt with occasional intermittent unsteadiness especially as dizziness progressed.. seated rest when dizziness became 6-7/10. Pt very pleased with his efforts today. Pt left up in recliner chair with call larson, phone, resting comfortably. Patient/Family Education: Topic: Assistive device/technique Balance Equipment use Gait Role of therapy Safety Transfers Learner: patient Method: verbal and demonstration Barriers to Learning: none noted Outcome: requires assist and needs practice Team Communication: Assessment/Plan Assessment Pt doing much better today and globally looking much stronger. Feel pt has progressed to the point he would be appropriate for acute rehab. Based on performance with therapy today, this patient is expected to be able to tolerate 3 hours of multi-disciplinary acute rehab therapy 5 days a week. Pt isvery motivated to return home, very tired of being in the hospital. Acute rehab referral initiated. Plan Continue per plan of care Recommended Discharge Destination: Acute rehabilitation Recommended Discharge Services: Physical therapy at rehabilitation facility Recommended Equipment Needs: To be determined by next care provider Other recommendations: No other consults recommended at this time Pager: [phone] Mercy Kim, PT 07/30/2023 13:42 * Shanthi Tom MD PhD - 07/30/[address] [facility] MEDICINE INPATIENT PROGRESS NOTE Service Date: 07/30/23 Admit Date: 06/25/2023 13:23 Reason for Admission: 68 y.o. male admitted with a chief complaint of epistaxis; and now with a principal diagnosis of mixed cardiogenic and distributive shock w/ multi-organ dysfunction. Significant 24-hour events: - GLORIA SUBJECTIVE Has really appreciated being able to go outside the last couple of days. Slowly making improvementswith regaining his strength, though strength in legs remains quite compromised from previous baseline. He thinks the hematoma in his left inguinal area is improving, though was mildly sore. Eating and drinking as best he can, mild intermittent nausea. Remains motivated to continue to improve, looking forward to hopefully being discharged to a [facility] as soon as bed offer available. OBJECTIVE Vital Signs: Temp: [36.6 ??C (97.8 ??F)-37.5 ??C (99.5 ??F)] , Heart Rate: [95 BPM-105 BPM] , Resp: [18] , BP: (95-130)/(71-103) , SpO2: [96 %-97 %] Physical Exam: General: NAD, sitting upright in recliner chair finishing breakfast HEENT: NC/AT, MMM, no scleral icterus Neck: Supple, no cervical lymphadenopathy Cardiac: RRR, S1+S2 normal, no murmur Resp: Breathing comfortably on RA, no adventitious lung sounds, no cough Abdomen: Soft, non-tender, non distended, BS present Extremities: Focal area of tense soft mass of left inguinal area with overlying ecchymoses, no LE edema, no cyanosis Neuro: Alert and oriented, no focal sensory or motor neurological deficits appreciated, spontaneousmovement of 4 extremities Skin: No rashes, lesions, petechiae on exposed skin. Hematoma on LLE continues to improve Lines: PICC in place in RUE (inserted 07/01) Labs: CBC: Recent Labs 07/28/23 0600 07/30/23 0624 WBC 9.37 8.31 RBC 2.72* 2.56* HGB 8.1* 7.8* HCT 25.1* 24.3* MCV 92 95 MCH 29.8 30.5 MCHC 32.3* 32.1* PLT 248 248 BMP: Recent Labs 07/28/23 0559 07/30/23 0624 NA 139 139 K 4.3 4.5 CL 108 109 CO2 21* 20* BUN 28* 22 CREATININE 1.52* 1.36* CALCIUM 9.0 9.0 MG 1.6* 1.4* Imaging: US EXTREMITY SOFT TISSUE Result Date: 07/25/2023 FINDINGS / IMPRESSION: * Hematoma in the left groin region measuring about 9.5 x 2.9 x 4.4 cm on the current exam compared to 7.6 x 3.3 x 4.6 cm on the previous exam, representing a modest overall increase in size. * Smaller adjacent hematoma also noted, deep to the aforementioned hematoma in the left groin, measuring 2.6 x 2.4 x 1.4 cm. * No flow demonstrated within the collections on Doppler interrogation, though CT angiography would be necessary to definitively exclude any residual or recurrent active extravasation. Medications: Scheduled: acetaminophen, 500 mg, QID aspirin chewable, 81 mg, DAILY atorvastatin, 40 mg, DAILY citalopram, 20 mg, DAILY Dimethicone-Zinc Oxide, , BID empagliflozin, 10 mg, DAILY ferrous sulfate 324 mg (65 mg elemental), 324 mg, Q48H folic acid, 1 mg, DAILY gabapentin, 300 mg, BID heparin, 5,000 Units, Q8H lidocaine 5 %, 1 Patch, DAILY magnesium sulfate, 2 g, Q4H metoprolol SUCCinate, 50 mg, DAILY Multivitamins with Minerals, 1 Tablet, DAILY nystatin, , BID pantoprazole, 40 mg, DAILY petrolatum, , DAILY ramelteon, 8 mg, QHS sodium chloride 0.9 % (flush), 10 mL, WEEKLY thiamine, 100 mg, DAILY white petrolatum, , TID Continuous: PRN: alteplase, 2 mg, PRN diclofenac sodium, 2 g, BID PRN lidocaine, 2 mg, PRN prochlorperazine, 10 mg, Q6H PRN sodium chloride 0.9 % (flush), 10 mL, PRN sodium chloride 0.9 % (flush), 20 mL, PRN ASSESSMENT Derrick Hobson is a 68 y.o. male with a PMHx notable for HFrEF, Afib, COPD, and treated Hep C as a transfer from [facility] to [facility] on 07/10/23 with epistaxis, but ultimately found to be in multiorganfailure secondary to mixed cardiogenic/conservative shock and transferred here for consideration ofRRT. Now with prolonged hospital course complicated by hypotension, new severe systolic heart failure, AHRF, electrolyte derangements, shock liver, and oliguric acute kidney failure. Now with significant improvements in mental status and kidney function, with last HD session 07/05. Now focusing on titration of GDMT and regaining strength. Ongoing complications have included symptomatic lightheaded/dizziness, intermittent epistaxis, and L SFA hematoma, though has remained quite clinically stable the past 72 hours. PLAN Episodic lightheadedness & nausea, slowly improving -With some correlation with position (sitting up, standing,) and some correlation with eating (postprandial) - DDx: vaso-vagal, orthostatic, beta-clyde intolerance, symptomatic CHF - Formal orthostatics 07/26 borderline and not tentatively positive, though was subjectively symptomatic Plan: - CTM - No further up-titration of CHF medications in the near term - As needed Compazine 10 mg p.o. every 6 hours Chronic anemia -Anemia panel labs most consistent with at least a component of JANUSZ, likely multifactorial - s/p 500 mg IV iron sucrose 07/23/2023 Plan: - Repeat 2nd dose IV iron sucrose 500 mg today 07/28 - Likely intermittent IV iron sucrose every ~5-7 days while remains hospitalized for goal ~1500 mg total - Continue oral iron supplement daily Recurrent right inguinal/thigh hematoma, stabilized since 07/24 - No left SFA hematoma while in the MICU status post prior CTA and, ultrasounds - Records indicate left inguinal A-line placed at [facility] prior to transfer - Clinical course seems like this resolved/achieved hemostasis, now seems like it has recurred/progressed over the last 24 hours Plan: - DVT prophylaxis heparin 5K q8hr - Continue to hold therapeutic anticoagulation while hospitalized Recurrent epistaxis, dormant since 07/20 - Patient reports it been happening over the past year 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, 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, had to be treated with multiple Rhino Rocket's, reports undergoing left nares cauterization in the past - Most recent epistaxis occurred while hospitalized ~07/20 Plan: - Petroleum jelly to nares twice daily for moisturization - Discussed with ENT, recommended against acute intervention while hospitalized, recommended outpatient follow-up as well as consideration for AC sparing approaches such as Watchman Heart failure with improved ejection fraction (EF 20-25% --> 40%) Mixed cardiogenic/distributive shock, resolved EF improved significantly from 20% on admission to 40% on 06/27, to 35-40% on 07/16. NM SPECT stress test 07/18 with fixed defect of the RCA - no indication for revascularization - goal SBP 120-160, heart rate <100 per cardiology - atorvastatin 40mg daily -Titration of GDMT -metoprolol succinate 50 mg daily -Continue empagliflozin 10 mg daily -hold spironolactone, losartan given elevated potassium and soft BP/intolerance to quad GDMT therapy - f/u with outpatient cardiology for HF at discharge Persistent Afib (with RVR, resolved) -Was on 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 apixaban 5 mg twice daily, but has been plagued with recurrent epistaxis 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 and prompting this current admission - CHADSVASc score is 4 Plan: - Rate control with metoprolol as above - Holding on restarting 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 DOAC (Apixaban 5mg) given severe anemia recurrent epistaxis and L inguinal/thigh hematoma Severe protein calorie malnutrition NG removed 07/14. All meds and food PO. - Nutrition following - Mighty shakes TID, magic cups BID - Regular diet CHRONIC/STABLE/RESOLVED: AHRF 2/2 hospital acquired pneumonia, resolved: s/p pip-tazo (end 07/13) Mood disorder: 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 citalopram 20 mg ?Neuropathic pain: 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 gabapentin 800mg TID restarted 07/11 at renally adjusted dose COPD: 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 duonebs PRN Candiduria: not treating per ID unless clinical worsening (would do fluconazole) Polysubstance use disorder: hx cocaine use, ?EtOH disorder, ?opioid use Acute toxic metabolic encephalopathy, resolved: delirium precautions CHECKLIST: Consults: None Diet: DIET REGULAR VTE Prophylaxis: heparin 5000units q8h Code status: Full Code PT/OT: Recommending [facility] Discharge Plan: Listed for [facility], no offers yet. Will ask for skilled status tomorrow 07/30 if remains stable. Plan to remove PICC prior to discharge. Shanthi Tom MD, PhD Resident Physician, Internal Medicine - PGY-3 Pager: [phone] [employer] Secure Message Associated attestation - Nomi Kingsley MD - 07/30/2023 1816 EDT ATTENDING ATTESTATION: I have reviewed the previous notes and labs. I have seen and examined the patient and agree with the assessment and plan as outlined in the resident's note below. I spent a total of 25 minutes on the date of this encounter meeting with the patient and reviewing documentation/coordinating care. Nomi Kingsley MD Medicine Hospitalist * Frank Alcantara RN - 07/30/2023 0581 EDT Problem: High Fall Risk: Goal: Patient will Remain Free of Falls due to Altered Mobility Outcome: Ongoing Problem: Daily Care Plan Goals Goal: Care Plan Documentation Outcome: Ongoing Flowsheets Taken 07/30/2023 0222 Area of Focus: Safety Taken 07/29/2023 2100 Goal This Shift: Pt will remain safe this shift Problem: SKIN INTEGRITY Goal: Skin integrity will improve or be maintained Outcome: Ongoing Data: Assumed patient care at 1900, pt is alert and oriented x 3 able to make needs known. Continent uses the urinal and bedside commode. Action: Medication given per mar, vital signs taken. Hourly rounding continues. Response: Resting in bed comfortable, Call light within reach. FRANK ALCANTARA RN 07/30/2023 2:23 * Shanthi Tom MD PhD - 07/29/2023 0658 EDT [facility] MED[facility]INE INPATIENT PROGRESS NOTE Service Date: 07/29/23 Admit Date: 06/25/2023 13:23 Reason for Admission: 68 y.o. male admitted with a chief complaint of epistaxis; and now with a principal diagnosis of mixed cardiogenic and distributive shock w/ multi-organ dysfunction. Significant 24-hour events: - NAEO SUBJECTIVE In high spirits this morning, feeling better and improving compared to yesterday. He was very grateful for the opportunity to go outside yesterday, experience some sunshine, get some fresh air. He continues to be highly motivated to work with nursing and PT toward ambulating. He reports sometimes feeling like a giraffe learning to walk, but feels like he is making slow incremental gains on a daily basis. He has had episodes of feeling nauseous/lightheadedness mostly associated with standing/exertion/transfers in the last couple of days, but again, overall slowly improving. Left inguinal hematoma is not expanding in size, continues to be mildly tender to palpation. OBJECTIVE Vital Signs: Temp: [37.1 ??C (98.8 ??F)-37.2 ??C (98.9 ??F)] , Heart Rate: [78 BPM-92 BPM] , Resp: [18] , BP: (81-133)/(53-87) , SpO2: [93 %-98 %] Physical Exam: General: NAD, sitting upright in recliner chair finishing breakfast HEENT: NC/AT, MMM, no scleral icterus Neck: Supple, no cervical lymphadenopathy Cardiac: RRR, S1+S2 normal, no murmur Resp: Breathing comfortably on RA, no adventitious lung sounds, no cough Abdomen: Soft, non-tender, non distended, BS present Extremities: Focal area of tense soft mass of left inguinal area with overlying ecchymoses, no LE edema, no cyanosis Neuro: Alert and oriented, no focal sensory or motor neurological deficits appreciated, spontaneousmovement of 4 extremities Skin: No rashes, lesions, petechiae on exposed skin. Hematoma on LLE continues to improve Lines: PICC in place in RUE (inserted 07/01) Labs: CBC: Recent Labs 07/27/23 0635 07/28/23 0600 WBC 8.85 9.37 RBC 2.75* 2.72* HGB 8.1* 8.1* HCT 25.8* 25.1* MCV 94 92 MCH 29.5 29.8 MCHC 31.4* 32.3* PLT 244 248 BMP: Recent Labs 07/27/23 0635 07/28/23 0559 NA 138 139 K 4.7 4.3 CL 106 108 CO2 22 21* BUN 26 28* CREATININE 1.50* 1.52* CALCIUM 8.9 9.0 MG 1.7 1.6* Imaging: US EXTREMITY SOFT TISSUE Result Date: 07/25/2023 FINDINGS / IMPRESSION: * Hematoma in the left groin region measuring about 9.5 x 2.9 x 4.4 cm on the current exam compared to 7.6 x 3.3 x 4.6 cm on the previous exam, representing a modest overall increase in size. * Smaller adjacent hematoma also noted, deep to the aforementioned hematoma in the left groin, measuring 2.6 x 2.4 x 1.4 cm. * No flow demonstrated within the collections on Doppler interrogation, though CT angiography would be necessary to definitively exclude any residual or recurrent active extravasation. Medications: Scheduled: acetaminophen, 500 mg, QID aspirin chewable, 81 mg, DAILY atorvastatin, 40 mg, DAILY citalopram, 20 mg, DAILY Dimethicone-Zinc Oxide, , BID empagliflozin, 10 mg, DAILY ferrous sulfate 324 mg (65 mg elemental), 324 mg, Q48H folic acid, 1 mg, DAILY gabapentin, 300 mg, BID heparin, 5,000 Units, Q8H lidocaine 5 %, 1 Patch, DAILY metoprolol SUCCinate, 50 mg, DAILY Multivitamins with Minerals, 1 Tablet, DAILY pantoprazole, 40 mg, DAILY petrolatum, , DAILY ramelteon, 8 mg, QHS sodium chloride 0.9 % (flush), 10 mL, WEEKLY thiamine, 100 mg, DAILY white petrolatum, , TID Continuous: PRN: alteplase, 2 mg, PRN diclofenac sodium, 2 g, BID PRN lidocaine, 2 mg, PRN prochlorperazine, 10 mg, Q6H PRN Or prochlorperazine edisylate, 10 mg, Q6H PRN sodium chloride 0.9 % (flush), 10 mL, PRN sodium chloride 0.9 % (flush), 20 mL, PRN ASSESSMENT Derrick Hobson is a 68 y.o. male with a PMHx notable for HFrEF, Afib, COPD, and treated Hep C as a transfer from [facility] to [facility] on 07/10/23 with epistaxis, but ultimately found to be in multiorganfailure secondary to mixed cardiogenic/conservative shock and transferred here for consideration ofRRT. Now with prolonged hospital course complicated by hypotension, new severe systolic heart failure, AHRF, electrolyte derangements, shock liver, and oliguric acute kidney failure. Now with significant improvements in mental status and kidney function, with last HD session 07/05. Now focusing on titration of GDMT and regaining strength. Ongoing complications have included symptomatic lightheaded/dizziness, intermittent epistaxis, and L SFA hematoma. PLAN Episodic lightheadedness & nausea, slowly improving -With some correlation with position (sitting up, standing,) and some correlation with eating (postprandial) - DDx: vaso-vagal, orthostatic, beta-clyde intolerance, symptomatic CHF - Formal orthostatics 07/26 borderline and not tentatively positive, though was subjectively symptomatic Plan: - CTM - No further up-titration of CHF medications in the near term - As needed Compazine 10 mg p.o. every 6 hours Chronic anemia -Anemia panel labs most consistent with at least a component of JANUSZ, likely multifactorial - s/p 500 mg IV iron sucrose 07/23/2023 Plan: - Repeat 2nd dose IV iron sucrose 500 mg today 07/28 - Likely intermittent IV iron sucrose every ~5-7 days while remains hospitalized for goal ~1500 mg total - Continue oral iron supplement daily Recurrent right inguinal/thigh hematoma, stabilized since 07/24 - No left SFA hematoma while in the MICU status post prior CTA and, ultrasounds - Records indicate left inguinal A-line placed at [facility] prior to transfer - Clinical course seems like this resolved/achieved hemostasis, now seems like it has recurred/progressed over the last 24 hours Plan: - DVT prophylaxis heparin 5K q8hr - Continue to hold therapeutic anticoagulation while hospitalized Recurrent epistaxis, dormant since 07/20 - Patient reports it been happening over the past year 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, 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, had to be treated with multiple Rhino Rocket's, reports undergoing left nares cauterization in the past - Most recent epistaxis occurred while hospitalized ~07/20 Plan: - Petroleum jelly to nares twice daily for moisturization - Discussed with ENT, recommended against acute intervention while hospitalized, recommended outpatient follow-up as well as consideration for AC sparing approaches such as Watchman Heart failure with improved ejection fraction (EF 20-25% --> 40%) Mixed cardiogenic/distributive shock, resolved EF improved significantly from 20% on admission to 40% on 06/27, to 35-40% on 07/16. NM SPECT stress test 07/18 with fixed defect of the RCA - no indication for revascularization - goal SBP 120-160, heart rate <100 per cardiology - atorvastatin 40mg daily -Titration of GDMT -metoprolol succinate 50 mg daily -Continue empagliflozin 10 mg daily -hold spironolactone, losartan given elevated potassium and soft BP/intolerance to quad GDMT therapy - f/u with outpatient cardiology for HF at discharge Persistent Afib (with RVR, resolved) -Was on 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 apixaban 5 mg twice daily, but has been plagued with recurrent epistaxis 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 and prompting this current admission - CHADSVASc score is 4 Plan: - Rate control with metoprolol as above - Holding on restarting 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 DOAC (Apixaban 5mg) given severe anemia recurrent epistaxis and L inguinal/thigh hematoma Severe protein calorie malnutrition NG removed 07/14. All meds and food PO. - Nutrition following - Mighty shakes TID, magic cups BID - Regular diet CHRONIC/STABLE/RESOLVED: AHRF 2/2 hospital acquired pneumonia, resolved: s/p pip-tazo (end 07/13) Mood disorder: 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 citalopram 20 mg ?Neuropathic pain: 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 gabapentin 800mg TID restarted 07/11 at renally adjusted dose COPD: 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 duonebs PRN Candiduria: not treating per ID unless clinical worsening (would do fluconazole) Polysubstance use disorder: hx cocaine use, ?EtOH disorder, ?opioid use Acute toxic metabolic encephalopathy, resolved: delirium precautions CHECKLIST: Consults: None Diet: DIET REGULAR VTE Prophylaxis: heparin 5000units q8h Code status: Full Code PT/OT: Recommending [facility] Discharge Plan: Listed for [facility], no offers yet. Remove PICC prior to discharge. Shanthi Tom MD, PhD Resident Physician, Internal Medicine - PGY-3 Pager: [phone] [employer] Secure Message Associated attestation - Nomi Kingsley MD - 07/29/2023 1643 EDT ATTENDING ATTESTATION: I have reviewed the previous notes, labs, and radiology data. I have seen and examined the patient and agree with the assessment and plan as outlined in the resident's note below. Derrick continues to recover from prolonged hospitalization for cardiogenic shock with JOS requiring CRRT and is medically stable for discharge. He is medically stable for discharge to [facility]. We will given IV iron today to treat iron deficiency. Nomi Kingsley MD Medicine Hospitalist * Shanthi Tom MD PhD - 07/28/2023 0630 EDT [facility]GR[facility] Service Date: 07/28/23 Admit Date: 06/25/2023 13:23 Reason for Admission: 68 y.o. male admitted with a chief complaint of epistaxis; and now with a principal diagnosis of mixed cardiogenic and distributive shock w/ multi-organ dysfunction. Significant 24-hour events: - NAEO SUBJECTIVE Manage feeling overall little bit better this morning. Less burden of intermittent lightheadedness/dizziness/nausea. He specifically request for clearance to leave the floor in a wheelchair to get some sunshine and fresh air. Again, feeling discouraged by 30+ day hospitalization, high motivation hue discharged as soon as he is medically ready. He reports ongoing tenderness of left inguinal hematoma area, but denies any obvious progression. OBJECTIVE Vital Signs: Temp: [36.7 ??C (98.1 ??F)-37.7 ??C (99.9 ??F)] , Heart Rate: [98 BPM-113 BPM] , Resp: [18] , BP: (103-133)/(70-88) , SpO2: [97 %-99 %] Physical Exam: General: NAD, sitting upright in recliner chair finishing breakfast HEENT: NC/AT, MMM, no scleral icterus Neck: Supple, no cervical lymphadenopathy Cardiac: RRR, S1+S2 normal, no murmur Resp: Breathing comfortably on RA, no adventitious lung sounds, no cough Abdomen: Soft, non-tender, non distended, BS present Extremities: Focal area of tense soft mass of left inguinal area with overlying ecchymoses, no LE edema, no cyanosis Neuro: Alert and oriented, no focal sensory or motor neurological deficits appreciated, spontaneousmovement of 4 extremities Skin: No rashes, lesions, petechiae on exposed skin. Hematoma on LLE continues to improve Lines: PICC in place in RUE (inserted 07/01) Labs: CBC: Recent Labs 07/25/23 1854 07/26/23 0555 07/27/23 0635 WBC 9.00 8.38 8.85 RBC 2.45* 2.72* 2.75* HGB 7.3* 7.9* 8.1* HCT 23.1* 25.2* 25.8* MCV 94 93 94 MCH 29.8 29.0 29.5 MCHC 31.6* 31.3* 31.4* PLT 256 255 244 BMP: Recent Labs 07/25/23 0655 07/26/23 0555 07/27/23 0635 NA 138 139 138 K 4.5 4.7 4.7 CL 106 106 106 CO2 24 25 22 BUN 25 24 26 CREATININE 1.50* 1.61* 1.50* CALCIUM 9.0 9.1 8.9 MG 1.8 1.5* 1.7 LABALBU -- 3.0* -- Imaging: US EXTREMITY SOFT TISSUE Result Date: 07/25/2023 FINDINGS / IMPRESSION: * Hematoma in the left groin region measuring about 9.5 x 2.9 x 4.4 cm on the current exam compared to 7.6 x 3.3 x 4.6 cm on the previous exam, representing a modest overall increase in size. * Smaller adjacent hematoma also noted, deep to the aforementioned hematoma in the left groin, measuring 2.6 x 2.4 x 1.4 cm. * No flow demonstrated within the collections on Doppler interrogation, though CT angiography would be necessary to definitively exclude any residual or recurrent active extravasation. Medications: Scheduled: acetaminophen, 500 mg, Q6H aspirin chewable, 81 mg, DAILY atorvastatin, 40 mg, DAILY citalopram, 20 mg, DAILY Dimethicone-Zinc Oxide, , BID empagliflozin, 10 mg, DAILY ferrous sulfate 324 mg (65 mg elemental), 324 mg, Q48H folic acid, 1 mg, DAILY gabapentin, 300 mg, BID heparin, 5,000 Units, Q8H lidocaine 5 %, 1 Patch, DAILY metoprolol SUCCinate, 50 mg, DAILY Multivitamins with Minerals, 1 Tablet, DAILY pantoprazole, 40 mg, DAILY petrolatum, , DAILY ramelteon, 8 mg, QHS sodium chloride 0.9 % (flush), 10 mL, WEEKLY thiamine, 100 mg, DAILY white petrolatum, , TID Continuous: PRN: alteplase, 2 mg, PRN dextrose 50 %, 12.5 g, PRN diclofenac sodium, 2 g, BID PRN lidocaine, 2 mg, PRN prochlorperazine, 10 mg, Q6H PRN Or prochlorperazine edisylate, 10 mg, Q6H PRN sodium chloride 0.9 % (flush), 10 mL, PRN sodium chloride 0.9 % (flush), 20 mL, PRN ASSESSMENT Derrick Abner Hobson is a 68 y.o. male with a PMHx notable for HFrEF, Afib, COPD, and treated Hep C as a transfer from [facility] to [facility] on 07/10/23 with epistaxis, but ultimately found to be in multiorganfailure secondary to mixed cardiogenic/conservative shock and transferred here for consideration ofRRT. Now with prolonged hospital course complicated by hypotension, new severe systolic heart failure, AHRF, electrolyte derangements, shock liver, and oliguric acute kidney failure. Now with significant improvements in mental status and kidney function, with last HD session 07/05. Now focusing on titration of GDMT and regaining strength. Ongoing complications have included symptomatic lightheaded/dizziness, intermittent epistaxis, and L SFA hematoma. PLAN Episodic lightheadedness & nausea -With some correlation with position (sitting up, standing,) and some correlation with eating (postprandial) - DDx: vaso-vagal, orthostatic, beta-clyde intolerance, symptomatic CHF - - Formal orthostatics 07/26 - Lying 102/70, sitting 105/74, standing 85/65 borderline Plan: - CTM - No further-up titration of CHF medications Recurrent right inguinal/thigh hematoma - No left SFA hematoma while in the MICU status post prior CTA and, ultrasounds - Records indicate left inguinal A-line placed at [facility] prior to transfer - Clinical course seems like this resolved/achieved hemostasis, now seems like it has recurred/progressed over the last 24 hours Plan: - DVT prophylaxis heparin 5K q8hr - Continue to hold therapeutic anticoagulation Recurrent epistaxis -Patient reports it been happening over the past year 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, 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, had to be treated with multiple Rhino Rocket's, reports undergoing left nares cauterization in the past -Most recent epistaxis occurred while hospitalized ~07/20 Plan: - Petroleum jelly to nares twice daily for moisturization - Discussed with ENT, recommended against acute intervention while hospitalized, recommended outpatient follow-up as well as consideration for AC sparing approaches such as Watchman Heart failure with improved ejection fraction (EF 20-25% --> 40%) Mixed cardiogenic/distributive shock, resolved EF improved significantly from 20% on admission to 40% on 06/27, to 35-40% on 07/16. NM SPECT stress test 07/18 with fixed defect of the RCA - no indication for revascularization - goal SBP 120-160, heart rate <100 per cardiology - atorvastatin 40mg daily -Titration of GDMT -metoprolol succinate 50 mg daily -Continue empagliflozin 10 mg daily -hold spironolactone, losartan given elevated potassium and soft BP/intolerance to quad GDMT therapy - f/u with outpatient cardiology for HF at discharge Persistent Afib (with RVR, resolved) -Was on 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 apixaban 5 mg twice daily, but has been plagued with recurrent epistaxis 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 and prompting this current admission - CHADSVASc score is 4 Plan: - Rate control with metoprolol as above -Holding on restarting 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 DOAC (Apixaban 5mg) given severe anemia recurrent epistaxis and L inguinal/thigh hematoma Severe protein calorie malnutrition NG removed 07/14. All meds and food PO. - Nutrition following - Mighty shakes TID, magic cups BID - Regular diet Chronic anemia -Anemia panel labs most consistent with at least a component of JANUSZ, likely multifactorial - s/p 500 mg IV iron sucrose 07/23/2023 Plan: - Likely intermittent IV iron sucrose ~weekly if remains hospitalized for goal ~1500 mg total - Continue oral iron supplement every 4 hours - daily CBC CHRONIC/STABLE/RESOLVED: AHRF 2/2 hospital acquired pneumonia, resolved: s/p pip-tazo (end 07/13) Mood disorder: 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 citalopram 20 mg ?Neuropathic pain: 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 gabapentin 800mg TID restarted 07/11 at renally adjusted dose COPD: 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 duonebs PRN Candiduria: not treating per ID unless clinical worsening (would do fluconazole) Polysubstance use disorder: hx cocaine use, ?EtOH disorder, ?opioid use Acute toxic metabolic encephalopathy, resolved: delirium precautions CHECKLIST: Consults: None Diet: DIET REGULAR VTE Prophylaxis: heparin 5000units q8h Code status: Full Code PT/OT: Recommending [facility] Discharge Plan: Listed for [facility]. Remove PICC prior to discharge. Shanthi Tom MD, PhD Resident Physician, Internal Medicine - PGY-3 Pager: [phone] [employer] Message Associated attestation - Nomi Kingsley MD - 07/28/2023 1515 EDT ATTENDING ATTESTATION: I have reviewed the previous notes, labs, and radiology data. I have seen and examined the patient and agree with the assessment and plan as outlined in the resident's note below. Nomi Kingsley MD Medicine Hospitalist * Mercy Kim PT - 07/27/2023 1517 EDT [facility] Therapy Acute Therapy [facility] Physical Therapy Contact Note Date of Service: 07/27/2023 Attempted treatment at scheduled time at 1035-pt on commode, reading a book. Returned at ~1315-pt eating lunch, declined getting up currently. Mercy Kim PT 07/27/2023 15:17 * Madonna Husain, RD - 07/27/2023 1500 EDT Nutrition Assessment Note: Reassessment BACKGROUND DATA Subjective: Patient reports having a pretty good appetite. He dislikes the nutritional supplements and has beenrefusing them. He states that he likes whole milk to drink. Current Nutrition Orders: Diet-Regular--Ensure Plus with breakfast and magic cup with dinner--Custard with lunch and dinner--Menu Assist Nutrition Focused Physical Exam Incomplete Physical Findings: Digestive Systems: Last BM 07/27/23 Dentition: Teeth: Missing teeth per flowsheets Edema: none documented Skin: blanchable redness; DTI coccyx Allergies on file: Clonidine Anthropometrics: Height: 182.9 cm (72) Wt Readings from Last 6 Encounters: 07/27/23 69 kg (152 lb 1.9 oz) Weights Filed This Admission 06/25/23 1340 06/28/23 0900 06/29/23 1333 06/30/23 0815 Weight: 80.3 kg (177 lb) 80.3 kg (177 lb) 80.2 kg (176 lb 12.9 oz) 80.7 kg (177 lb 14.6 oz) 07/02/23 0949 07/02/23 1410 07/04/23 1011 07/06/23 0600 Weight: 81 kg (178 lb 9.2 oz) 80 kg (176 lb 5.9 oz) 80 kg (176 lb 5.9 oz) 70.2 kg (154 lb 12.2 oz) 07/06/23 0923 07/09/23 0611 07/10/23 0553 07/12/23 0548 Weight: 70.2 kg (154 lb 12.2 oz) 60.1 kg (132 lb 7.9 oz) 60 kg (132 lb 4.4 oz) 60.1 kg (132 lb 7.9 oz) 07/17/23 0929 07/18/23 0448 07/19/23 0415 07/19/23 0936 Weight: 59.9 kg (132 lb) 66.2 kg (145 lb 15.1 oz) 66.3 kg (146 lb 2.6 oz) 66.2 kg (146 lb) 07/20/23 0600 07/21/23 0444 07/22/23 0500 07/23/23 0515 Weight: 71.7 kg (158 lb 1.1 oz) 67.9 kg (149 lb 11.1 oz) 68.6 kg (151 lb 3.8 oz) 68.9 kg (151 lb 14.4 oz) 07/24/23 0600 07/25/23 0431 07/25/23 0600 07/27/23 0645 Weight: 68 kg (149 lb 14.6 oz) 66 kg (145 lb 8.1 oz) 64.8 kg (142 lb 13.7 oz) 69 kg (152 lb 1.9 oz) BMI: 20.63 Weight Change: weight overall down 11.3 kg this admission with some fluctuations noted; weight appears to be stabilizing recently Pertinent Medications: Current Facility-Administered Medications Medication Route Frequency acetaminophen (TYLENOL) tablet 500 mg oral Q6H alteplase (CATHFLO ACTIVASE) injection 2 mg intercatheter PRN aspirin chewable tablet 81 mg oral DAILY atorvastatin (LIPITOR) tablet 40 mg oral DAILY citalopram (CELEXA) tablet 20 mg oral DAILY dextrose 50 % solution 12.5 g intravenous PRN diclofenac sodium gel 2 g topical BID PRN Dimethicone-Zinc Oxide 20-25 % spray,non-aerosol topical BID empagliflozin (JARDIANCE) tablet 10 mg oral DAILY ferrous sulfate 324 mg (65 mg elemental) EC tablet 324 mg oral Q48H folic acid (FOLVITE) tablet 1 mg oral DAILY gabapentin (NEURONTIN) capsule 300 mg oral BID heparin injection 5,000 Units subcutaneous Q8H lidocaine (PF) 10 mg/mL (1 %) injection 2 mg intradermal PRN lidocaine 5 % (LIDODERM) patch 1 Patch transdermal DAILY metoprolol SUCCinate (TOPROL-XL) tablet 50 mg oral DAILY [id number] fum-folic ac 7.5 mg iron-400 mcg tablet 1 Tablet oral DAILY pantoprazole (PROTONIX) tablet 40 mg oral DAILY petrolatum ([employer]) 41 % ointment topical DAILY prochlorperazine (COMPAZINE) tablet 10 mg oral Q6H PRN Or prochlorperazine edisylate (COMPAZINE) injection 10 mg intravenous Q6H PRN ramelteon (ROZEREM) tablet 8 mg oral QHS sodium chloride 0.9 % (flush) flush 10 mL intercatheter WEEKLY sodium chloride 0.9 % (flush) flush 10 mL intercatheter PRN sodium chloride 0.9 % (flush) flush 20 mL intercatheter PRN thiamine (VITAMIN B1) tablet 100 mg oral DAILY white petrolatum 42 % ointment topical TID Pertinent Labs: Lab Results Component Value Date/Time NA 138 07/27/2023 06:35 K 4.7 07/27/2023 06:35 CO2 22 07/27/2023 06:35 CL 106 07/27/2023 06:35 BUN 26 07/27/2023 06:35 CREATININE 1.50 (H) 07/27/2023 06:35 GLUCOSEPOC 119 (H) 07/20/2023 10:53 CALCIUM 8.9 07/27/2023 06:35 PHOS 4.6 (H) 07/18/2023 04:38 MG 1.7 07/27/2023 06:35 Lab Results Component Value Date/Time HGB 8.1 (L) 07/27/2023 06:35 HCT 25.8 (L) 07/27/2023 06:35 IRON 32 (L) 07/23/2023 05:15 TIBC 341 07/23/2023 05:15 MCV 94 07/27/2023 06:35 FERRITIN 42 07/23/2023 05:15 LABIRON 9 (L) 07/23/2023 05:15 Lab Results Component Value Date/Time FOLATE >24.0 07/23/2023 05:15 [id number] 1,208 (H) 07/23/2023 05:15 Estimated Nutrition Needs: 25-30 kcal/kg (using 70.2 kg) = 9151-1874 kcals/day 1.2 g/kg protein (using 70.2 kg) = 85 g protein/day Fluid per medical team discretion Estimated Nutrition Intake: 07/26-100 % X 2 07/25-50 to 100 % of meals ASSESSMENT: Patient eating reasonably well at this time. Suspect he is close to meeting estimated needs. Will d/c oral nutrition supplements per patient request. Will offer custard and whole milk with meal traysas source of additional calories/protein. Iron panel consistent with possible deficiency. Patient on iron supplementation. Nutrition Risk Level: Moderate (2) MEDICAL NUTRITION THERAPY - UPDATED PLAN -Will d/c oral nutrition supplements; Nutrition to offer whole milk TID with meals and custard BID with lunch and dinner daily -Continue menu assist -Trend weights -Monitor po intake, stool patten and skin -RD following Madonna Husain RD, CD (Call PAS or use [employer] to page RD covering this unit) * Queenie Augustin OT - 07/27/2023 1241 EDT [facility] Therapy Acute Therapies [facility] - Occupational Therapy Encounter Note Date of Service: 07/27/2023 Subjective/Objective SUBJECTIVE: It felt so good regarding how he was feeling after showering OBJECTIVE: Time: 1100 Total treatment time: 30 minutes. Timed code treatment minutes: 30 Interventions included: Self-Care/Home Management: Patient received in wheelchair after showering with assist from AUTHOR'S AGENT. Grooming: Complete [place] with combing of hair in seated position. LE dressing: Modified [place] in wheelchair prior to mobilizing. Functional mobility- Sit to Stand: close supervision-minimal contact assistance with rolling walker Stand to Sit: close supervision-minimal contact assistance with rolling walker Functional ambulation:close supervision-minimal contact assistance with rolling walker. Wheelchair>recliner chair>bathroom door>recliner chair (~50 feet with x1 rest break) Cognition: Patient conversive, alert and oriented x3. Following directions without difficulty. Asked question x2 about role of OT (demonstrating difficulty with memory) The Short Blessed Test This test is a standardized test that assesses memory and concentration. G Pilotte???s score: POINTS (0=correct, 1=incorrect) SUB- SCORE COMMENTS YEAR (1) 0 X4 0 MONTH (1) 0 X3 0 TIME (1) 0 X3 0 COUNTING (2) 0 X2 0 MONTHS (2) 2 X2 4 Completed February-november, then skipped to may/June. Self stopped RECALL (5) 0 X2 0 Required cue to include number, otherwise was able to recall full address TOTAL SCORE = 06/30 Scorin-4= normal cognition 5-9= questionable cognitive impairment 10 or greater= cognitive impairment Patient education: Instructed on benefits of continued mobility throughout hospitalization Educated on benefits of mobilizing to bathroom with nursing (pending BP) when having to have a BM or void Skilled discussion regarding d/c recommendations ([facility]) with patient being agreeable). The patient was left in:Recliner chair With the: Call larson in reach and Chair alarm on Vital signs: Patient with symptom of: dizziness during mobility (reported mild) Activity Blood Pressure (mmHg) After returning from shower 130/79 After mobilizing in room 105/75 Patient/Family Education: Topic: Benefits of activity Role of OT D/C planning Safety awareness Positioning Learner: patient Method: verbal and demonstration Barriers to Learning: none noted Outcome: verbalized understanding, reinforcement needed Team Communication: Notified:Nurse By:Face to face communication When:Prior to therapy After therapy About:patient status Assessment/Plan ASSESSMENT: Derrick tolerated session well this date and is demonstrating good progress with functional mobility, ADLs, cognition, and activity tolerance. He also verbalized/demonstrated motivation to work with therapy to improve functional performance. Patient continued to have minimal dizziness and a decrease in blood pressure with mobility, however overall was able to fully participate. He does remain below his baseline level of function and continues to benefit from discharge to [facility] when medically ready. PLAN: Continue per plan of care Recommended Discharge Destination: Sub-acute Rehabilitation Recommended Discharge Services: Occupational therapy at rehabilitation facility Recommended Discharge Equipment: To be determined Pager: [phone] Queenie Augustin OT, 07/27/2023, 12:41 * Eliu Rene MD - 07/27/2023 1211 EDT [facility]GRESS [facility] Service Date: 07/27/23 Admit Date: 06/25/2023 13:23 Reason for Admission: 68 y.o. male admitted with a chief complaint of epistaxis; and now with a principal diagnosis of mixed cardiogenic and distributive shock w/ multi-organ dysfunction. Significant 24-hour events: NAEO SUBJECTIVE Patient denies any new subjective medical complaints. States that he is still experiencing some dizziness/lightheadedness with lots of movement. Notes that hematoma still remains sore and noted violaceous hue to the skin OBJECTIVE Vital Signs: Temp: [36.7 ??C (98.1 ??F)-37.1 ??C (98.8 ??F)] , Heart Rate: [93 BPM-98 BPM] , Resp: [18] , BP: (117-133)/(80-88) , SpO2: [97 %-99 %] Physical Exam: General: NAD, sitting upright in recliner chair finishing breakfast HEENT: NC/AT, MMM, no scleral icterus Neck: Supple, no cervical lymphadenopathy Cardiac: RRR, S1+S2 normal, no murmur Resp: Breathing comfortably on RA, no adventitious lung sounds, no cough Abdomen: Soft, non-tender, non distended, BS present Extremities: no LE edema, no cyanosis Neuro: Alert and oriented, no focal sensory or motor neurological deficits appreciated, spontaneousmovement of 4 extremities Skin: No rashes, lesions, petechiae on exposed skin. Hematoma on LLE continues to improve PICC in [facility] in [facility] (inserted 07/01) Labs: CBC: Recent Labs 07/25/23 1854 07/26/23 0555 07/27/23 0635 WBC 9.00 8.38 8.85 RBC 2.45* 2.72* 2.75* HGB 7.3* 7.9* 8.1* HCT 23.1* 25.2* 25.8* MCV 94 93 94 MCH 29.8 29.0 29.5 MCHC 31.6* 31.3* 31.4* PLT 256 255 244 BMP: Recent Labs 07/25/23 0655 07/26/23 0555 07/27/23 0635 NA 138 139 138 K 4.5 4.7 4.7 CL 106 106 106 CO2 22 BUN CREATININE 1.50* 1.61* 1.50* CALCIUM 9.0 9.1 8.9 MG 1.8 1.5* 1.7 LABALBU -- 3.0* -- Imaging: - No recent imaging Medications: Scheduled: acetaminophen, 500 mg, Q6H aspirin chewable, 81 mg, DAILY atorvastatin, 40 mg, DAILY citalopram, 20 mg, DAILY Dimethicone-Zinc Oxide, , BID empagliflozin, 10 mg, DAILY ferrous sulfate 324 mg (65 mg elemental), 324 mg, Q48H folic acid, 1 mg, DAILY gabapentin, 300 mg, BID heparin, 5,000 Units, Q8H lidocaine 5 %, 1 Patch, DAILY metoprolol SUCCinate, 50 mg, DAILY Multivitamins with Minerals, 1 Tablet, DAILY pantoprazole, 40 mg, DAILY petrolatum, , DAILY ramelteon, 8 mg, QHS sodium chloride 0.9 % (flush), 10 mL, WEEKLY thiamine, 100 mg, DAILY white petrolatum, , TID Continuous: PRN: alteplase, 2 mg, PRN dextrose 50 %, 12.5 g, PRN diclofenac sodium, 2 g, BID PRN lidocaine, 2 mg, PRN prochlorperazine, 10 mg, Q6H PRN Or prochlorperazine edisylate, 10 mg, Q6H PRN sodium chloride 0.9 % (flush), 10 mL, PRN sodium chloride 0.9 % (flush), 20 mL, PRN ASSESSMENT Derrick Hobson is a 68 y.o. male with a PMHx notable for HFrEF, Afib, COPD, and treated Hep C as a transfer from [facility] to [facility] on 07/10/23 with epistaxis, but ultimately found to be in multiorganfailure secondary to mixed cardiogenic/conservative shock and transferred here for consideration ofRRT. Now with prolonged hospital course complicated by hypotension, new severe systolic heart failure, AHRF, electrolyte derangements, shock liver, and oliguric acute kidney failure. Now with significant improvements in mental status and kidney function, with last HD session 07/05. Now focusing on titration of GDMT and regaining strength. Ongoing complications have included symptomatic lightheaded/dizziness, intermittent epistaxis, and L SFA hematoma. PLAN Episodic lightheadedness & nausea -With some correlation with position (sitting up, standing,) and some correlation with eating (postprandial) - DDx: vaso-vagal, orthostatic, beta-clyde intolerance, symptomatic CHF Plan: - Formal orthostatics 07/26 - Lying 102/70, sitting 105/74, standing 85/65 - No further-up titration of CHF medications Recurrent right inguinal/thigh hematoma - No left SFA hematoma while in the MICU status post prior CTA and, ultrasounds - Records indicate left inguinal A-line placed at [facility] prior to transfer - Clinical course seems like this resolved/achieved hemostasis, now seems like it has recurred/progressed over the last 24 hours Plan: - DVT prophylaxis heparin 5K q8hr - Continue to hold therapeutic anticoagulation Recurrent epistaxis -Patient reports it been happening over the past year 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, 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, had to be treated with multiple Rhino Rocket's, reports undergoing left nares cauterization in the past -Most recent epistaxis occurred while hospitalized ~06/20 Plan: - Petroleum jelly to nares twice daily for moisturization - Discussed with ENT, recommended against acute intervention while hospitalized, recommended outpatient follow-up as well as consideration for AC sparing approaches such as Watchman Heart failure with improved ejection fraction (EF 20-25% --> 40%) Mixed cardiogenic/distributive shock, resolved EF improved significantly from 20% on admission to 40% on 06/27, to 35-40% on 07/16. NM SPECT stress test 07/18 with fixed defect of the RCA - no indication for revascularization - goal SBP 120-160, heart rate <100 per cardiology - atorvastatin 40mg daily -Titration of GDMT -metoprolol succinate 50 mg daily -Continue empagliflozin 10 mg daily -hold spironolactone, losartan given elevated potassium and soft BP/intolerance to quad GDMT therapy - f/u with outpatient cardiology for HF at discharge Persistent Afib (with RVR, resolved) -Was on 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 apixaban 5 mg twice daily, but has been plagued with recurrent epistaxis 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 and prompting this current admission - CHADSVASc score is 4 Plan: - Rate control with metoprolol as above -Holding on restarting 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 DOAC (Apixaban 5mg) given severe anemia recurrent epistaxis and L inguinal/thigh hematoma Severe protein calorie malnutrition NG removed 07/14. All meds and food PO. - Nutrition following - Mighty shakes TID, magic cups BID - Regular diet Chronic anemia -Anemia panel labs most consistent with at least a component of JANUSZ, likely multifactorial - s/p 500 mg IV iron sucrose 07/23/2023 Plan: - Likely intermittent IV iron sucrose if remains hospitalized for goal ~1500 mg total - Continue oral iron supplement every 4 hours - daily CBC CHRONIC/STABLE/RESOLVED: AHRF 2/2 hospital acquired pneumonia, resolved: s/p pip-tazo (end 07/13) Mood disorder: 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 citalopram 20 mg ?Neuropathic pain: 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 gabapentin 800mg TID restarted 07/11 at renally adjusted dose COPD: 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 duonebs PRN Candiduria: not treating per ID unless clinical worsening (would do fluconazole) Polysubstance use disorder: hx cocaine use, ?EtOH disorder, ?opioid use Acute toxic metabolic encephalopathy, resolved: delirium precautions CHECKLIST: Consults: None Diet: DIET REGULAR VTE Prophylaxis: heparin 5000units q8h Code status: Full Code PT/OT: Recommending [facility] Discharge Plan: Listed for [facility]. Remove PICC prior to discharge. Eliu Rene MD Internal Medicine, PGY-1 Epic Chat (prefer) Pgr#[phone] Associated attestation - Nomi Kingsley MD - 07/27/2023 1719 EDT ATTENDING ATTESTATION: I have reviewed the previous notes and labs. I have seen and examined the patient and agree with the assessment and plan as outlined in the resident's note below. Nomi Kingsley MD Medicine Hospitalist * Frank Alcantara RN - 07/27/2023 0654 EDT Problem: Daily Care Plan Goals Goal: Care Plan Documentation Outcome: Ongoing Flowsheets (Taken 07/27/2023 0200) Area of Focus: Safety Problem: SKIN INTEGRITY Goal: Skin integrity will improve or be maintained Outcome: Ongoing Data: Patient is alert and oriented able to make needs known. Uses the urinal. Action: Vital signs taken medication given. Hourly rounding continues. No sign of acute distress noted. Response: Safety measures in place. In bed resting comfortable. FRANK ALCANTARA RN 07/27/2023 5:30 * Queenie Augustin, OT - 07/26/2023 7853 EDT [facility] Rehabilitation Therapy Acute Therapy [facility] Occupational Therapy Contact Note Date of Service: 07/26/2023 OT attempted intervention this date, however patient in bed 01 receiving sterile procedure. Due to this, unable to provide OT services. Will follow up as appropriate. Queenie Augustin OT, 07/26/2023, 15:53 * Niecy Reynolds - 07/26/2023 1406 EDT [facility] Department of Case Management and Social Work Case Management Progress Note Patient Name Level of Care and Accommodation Code: Patient Class: Medically Ready: Y/N Derrick Hobson Acute General Inpatient yes Primary Dx: Decisional Capacity: Y/N Primary Support/ CareGiver: Advance Directive Cardiogenic shock (HCC-CMS) yes Supports:siblings Advance Directives (For Healthcare) Healthcare Directive: No, patient unable to respond due to condition Information Provided on Healthcare Directives: No Information on Healthcare Directives Requested: No Disposition Information Appropriate to transfer back: Y/N Length of Stay (in days): Estimated Date of D/C: LTC Medicaid Status: [facility] did not accept transfer 31 TBD awaiting [facility] Bed No Primary Care Provider: AR/ARAMIS/SNF referred: Y/N Bed Offers: Y/N Escalated to Leadership: Y/N Davian Guzman yes no yes Mobility Level: Recommended D/C Location Payor: Bedside Mobility Assessment Tool (BMAT) Bedrest or non-weight bearing orders?: No Assessment Level 1-Sit & Shake: Pass Assessment Level 2-Stretch & Point: Pass Assessment Level 3-Stand: Pass Assessment Level 4-Step: Pass Mobility level determined: Mobility Level 4 use gait belt, walker, crutches, cane, prosthetic(s) Number of caregivers reccommended: 1 Recommended Discharge Destination PT Recommended Discharge Destination: Subacute rehabilitation Payor: MEDICARE / Plan: MEDICARE A/B / Product Type: Medicare GL / Barriers to Discharge [facility] placement Plan This cm spoke with patient about PT recommendations of [facility] as the safest dc plan. Explained to patient that patients who are deemed medically ready for discharge to a SNF will be listed with all the facilities in the State. We will make every effort to discharge the patient a SNF of their preference or an area of preference that meets the patient's health care needs. We will provide the patient with a choice of bed offers from accepting facilities. The patient will be expectedto accept the first available bed offer as determined to be reasonable by the payor. If the patientis ready for discharge & no longer requires acute care, or refused to accept appropriate placement, this could result in a financial obligation to the patient for the cost of the continued hospital stay. CM referred pt to [facility]. [facility]. Pt would like to be as close to [place] as possible. CM will continue to update [facility]. CM called the case management office at [facility] and asked to get ahold of pt's behavioral health case manager as pt's has made team aware that his dentures were lost somewhere between there and here. CM was told that they will identify who the behavioral health case manager was and will have them call this CM. Pt also told CM that his brother already checked his residence for his dentures. E-Signature MINERVA Kingston M. Ed. Bark F[employer] II Social Work and Case Management 07/26/23 14:06 * Mercy Kim, PT - 07/26/2023 1202 EDT [facility] Rehabilitation Therapy Acute Therapies [facility] Physical Therapy Encounter Note Date of Service: 07/26/2023 Subjective/Objective Subjective I get nauseous when I'm dizzy Objective Intervention completed today: Time: 1120 Total treatment time: 30 minutes. Timed code treatment minutes: 30 supine 102/70, HR 89, Sp02 98% RA (RA throughout) sitting 105/74. HR 104, Sp02 98% standing 85/65, HR 83, Sp02 98% (6/10 dizziness) sitting 94-67 after transfer to chair 105/68, HR 111 after ~40' amb in sitting (after 3 min) 90/62 (6-8/10 dizziness) up in recliner chair 100/69 Pt received up in bed, willing to work. Pt with new lump in groin. (Redeveloped hematoma). H/H stable. Clarified with team, okay to see pt today. Therapeutic Activity: Bed mobility: Supine>sit with HOB 30 degrees to pt's RIGHT with supervision with min verbal cuesfor technique and sequencing. Sitting balance: good with static/dynamic sitting balance Transfers; Sit <> stand from bed x 2 trials, from recliner chair x 1 trial and w/c x 2 trialswith mini contact assist and heavy v.c. for hand placement and to scoot self forward in chair, ++effortful, but able to complete with only light assist. Sometimes required several attempts to complete upright. Bed>chair>w/c>chair transfer with no assistive device, with pt able to perform stand-pivot, take several steps around to sitting surface, reaching for arm rest for stabilization (declined touse RW and narrow space) Ambulation: ~40 feet with RW with min contact assistance with pt demonstrating reciprocal gait, wide base of support, ++effortful, leaning heavily onto RW. CLOSE chair follow. Pt left up in recliner chair with chair alarm, +call larson, set-up with lunch and new books from book cart (per pt request) Patient/Family Education: Topic: Activity pacing/Energy conservation Assistive device/technique Balance Bed mobility Equipment use Exercise Gait Role of therapy Safety Transfers Learner: patient Method: verbal and demonstration Barriers to Learning: none noted Outcome: requires assist, needs practice, and verbalized understanding Team Communication: Pt status discussed with nursing prior to and after treatment session Also clarified with team, and team updated post tx re: above VS Assessment/Plan Assessment Geovani is doing better today and was able to initiate ambulation with BP still dropping some, but able to mobilize to small degree. Pt still is incredibly deconditioned-had been functioning independently prior to admission. Agree with rehab Plan Continue per plan of care Recommended Discharge Destination: rehab Recommended Discharge Services: Physical therapy at rehabilitation facility Recommended Equipment Needs: To be determined by next care provider Other recommendations: No other consults recommended at this time Pager: [phone] Mercy Kim, PT 07/26/2023 12:02 * Fawad Isabel - 07/26/2023 1039 EDT [facility] Spiritual Care Note Re: Derrick Hobson : 1955, AGE: 68 y.o. ROOM: [facility] [address] Spirituality: None BACKGROUND Derrick was welcoming and engaged throughout the visit. He states it has been harder for him to cope the longer his hospitalization has become. Though he is depressed and worried about the impact his health will have on meaningful activities, Derrick is not ready to give up yet. Derrick has been able to rely on pray and principles of recovery theology while hospitalized. Derrick was assessed to be in moderate to severe spiritual distress. His primary spiritual needs are self-worth and belonging. ASSESSMENT Beliefs & Values Mandaen and recovery theology Connections [facility] Meaning Making Helping others Coping Prayer INTERVENTIONS Non-anxious presence Demonstrated care and concern Prayer Affirmed patient's strengths Facilitate understanding of limitations CARE PLAN Patient will continue to engage his spirituality to cope with difficult thoughts and emotions stemming from his lengthy hospitalization. RECOMMENDATIONS None at this time. TIME STAMP: 30 minutes Rev. Fawad Isabel MA [facility] Lacquer Maker, Emergency Department Spiritual Care Department [place] [email or web address] * Holden Kingsley-Wanda Caicedo MD - 07/26/2023 0720 EDT [facility] Service Date: 07/26/23 Admit Date: 06/25/2023 13:23 Reason for Admission: 68 y.o. male admitted with a chief complaint of epistaxis; and now with a principal diagnosis of mixed cardiogenic and distributive shock w/ multi-organ dysfunction. Significant 24-hour events: - Ongoing close monitoring of L thigh hematoma SUBJECTIVE Hanging in there. Continues to experience intermittent lightheadedness, often assocaited with nausea. Se Agrees lump in L inguinal area is new over last 24 hours. It is pretty uncomfortable/painful. Has been having lightheadedness with sitting up abruptly/transferring/standing, with some associated nausea. OBJECTIVE Vital Signs: Temp: [36.8 ??C (98.3 ??F)-37.4 ??C (99.3 ??F)] , Heart Rate: [97 BPM-109 BPM] , Resp: [18] , BP: (82-130)/(62-84) , SpO2: [96 %-99 %] Physical Exam: General: NAD, sitting upright in recliner chair finishing breakfast HEENT: NC/AT, MMM, no scleral icterus Neck: Supple, no cervical lymphadenopathy Cardiac: RRR, S1+S2 normal, no murmur Resp: Breathing comfortably on RA, no adventitious lung sounds, no cough Abdomen: Soft, non-tender, non distended, BS present Extremities: no LE edema, no cyanosis Neuro: Alert and oriented, no focal sensory or motor neurological deficits appreciated, spontaneousmovement of 4 extremities Skin: No rashes, lesions, petechiae on exposed skin. Hematoma on LLE continues to improve P[facility] in [facility] in [facility] (inserted 07/01) Labs: CBC: Recent Labs 07/25/23 0655 07/25/23 1854 07/26/23 0555 WBC 7.63 9.00 8.38 RBC 2.67* 2.45* 2.72* HGB 7.9* 7.3* 7.9* HCT 25.2* 23.1* 25.2* MCV 94 94 93 MCH 29.6 29.8 29.0 MCHC 31.3* 31.6* 31.3* PLT 264 256 255 BMP: Recent Labs 07/24/23 0540 07/25/23 0655 07/26/23 0555 NA 137 138 139 K 4.9 4.5 4.7 CL 103 106 106 CO2 24 25 BUN 24 CREATININE 1.60* 1.50* 1.61* CALCIUM 9.0 9.0 9.1 MG 1.7 1.8 1.5* Imaging: - No recent imaging Medications: Scheduled: acetaminophen, 500 mg, Q6H aspirin chewable, 81 mg, DAILY atorvastatin, 40 mg, DAILY citalopram, 20 mg, DAILY Dimethicone-Zinc Oxide, , BID empagliflozin, 10 mg, DAILY ferrous sulfate 324 mg (65 mg elemental), 324 mg, Q48H folic acid, 1 mg, DAILY gabapentin, 300 mg, BID lidocaine 5 %, 1 Patch, DAILY magnesium sulfate, 2 g, Now metoprolol SUCCinate, 50 mg, DAILY multivitamin, 1 Tablet, QHS pantoprazole, 40 mg, DAILY petrolatum, , DAILY ramelteon, 8 mg, QHS sodium chloride 0.9 % (flush), 10 mL, WEEKLY thiamine, 100 mg, DAILY white petrolatum, , TID Continuous: PRN: alteplase, 2 mg, PRN dextrose 50 %, 12.5 g, PRN diclofenac sodium, 2 g, BID PRN lidocaine, 2 mg, PRN prochlorperazine, 10 mg, Q6H PRN Or prochlorperazine edisylate, 10 mg, Q6H PRN sodium chloride 0.9 % (flush), 10 mL, PRN sodium chloride 0.9 % (flush), 20 mL, PRN ASSESSMENT Derrick Hobson is a 68 y.o. male with a PMHx notable for HFrEF, Afib, COPD, and treated Hep C as a transfer from [facility] to [facility] on 07/10/23 with epistaxis, but ultimately found to be in multiorganfailure secondary to mixed cardiogenic/conservative shock and transferred here for consideration ofRRT. Now with prolonged hospital course complicated by hypotension, new severe systolic heart failure, AHRF, electrolyte derangements, shock liver, and oliguric acute kidney failure. Now with significant improvements in mental status and kidney function, with last HD session 07/05. Now focusing on titration of GDMT and regaining strength. Ongoing complications have included symptomatic lightheaded/dizziness, intermittent epistaxis, and L SFA hematoma. PLAN Episodic lightheadedness & nausea -With some correlation with position (sitting up, standing,) and some correlation with eating (postprandial) - DDx: vaso-vagal, orthostatic, beta-clyde intolerance, symptomatic CHF Plan: - Formal orthostatics - No further-up titration of CHF medications Recurrent right inguinal/thigh hematoma - No left SFA hematoma while in the MICU status post prior CTA and, ultrasounds - Records indicate left inguinal A-line placed at [facility] prior to transfer - Clinical course seems like this resolved/achieved hemostasis, now seems like it has recurred/progressed over the last 24 hours Plan: - Resume DVT prophylaxis heparin 5K q8hr - Continue to hold therapeutic anticoagulation Recurrent epistaxis -Patient reports it been happening over the past year 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, 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, had to be treated with multiple Rhino Rocket's, reports undergoing left nares cauterization in the past -Most recent epistaxis occurred while hospitalized ~06/20 Plan: - Petroleum jelly to nares twice daily for moisturization - Discussed with ENT, recommended against acute intervention while hospitalized, recommended outpatient follow-up as well as consideration for AC sparing approaches such as Watchman Heart failure with improved ejection fraction (EF 20-25% --> 40%) Mixed cardiogenic/distributive shock, resolved EF improved significantly from 20% on admission to 40% on 06/27, to 35-40% on 07/16. NM SPECT stress test 07/18 with fixed defect of the RCA - no indication for revascularization - goal SBP 120-160, heart rate <100 per cardiology - atorvastatin 40mg daily -Titration of GDMT -metoprolol succinate 50 mg daily -Continue empagliflozin 10 mg daily -hold spironolactone, losartan given elevated potassium and soft BP/intolerance to quad GDMT therapy - f/u with outpatient cardiology for HF at discharge Persistent Afib (with RVR, resolved) -Was on 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 apixaban 5 mg twice daily, but has been plagued with recurrent epistaxis 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 and prompting this current admission - CHADSVASc score is 4 Plan: - Rate control with metoprolol as above -Holding on restarting 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 DOAC (Apixaban 5mg) given severe anemia recurrent epistaxis and L inguinal/thigh hematoma Severe protein calorie malnutrition NG removed 07/14. All meds and food PO. - Nutrition following - Mighty shakes TID, magic cups BID - Regular diet Chronic anemia -Anemia panel labs most consistent with at least a component of JANUSZ, likely multifactorial - s/p 500 mg IV iron sucrose 07/23/2023 Plan: - Likely intermittent IV iron sucrose if remains hospitalized for goal ~1500 mg total - Continue oral iron supplement every 4 hours - daily CBC CHRONIC/STABLE/RESOLVED: AHRF 2/2 hospital acquired pneumonia, resolved: s/p pip-tazo (end 07/13) Mood disorder: 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 citalopram 20 mg ?Neuropathic pain: 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 gabapentin 800mg TID restarted 07/11 at renally adjusted dose COPD: 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 duonebs PRN Candiduria: not treating per ID unless clinical worsening (would do fluconazole) Polysubstance use disorder: hx cocaine use, ?EtOH disorder, ?opioid use Acute toxic metabolic encephalopathy, resolved: delirium precautions CHECKLIST: Consults: None Diet: DIET REGULAR VTE Prophylaxis: heparin 5000units q8h Code status: Full Code PT/OT: Recommending [facility] Discharge Plan: Will need [facility] at discharge, medically appropriate to list. [facility] declined transfer 07/24/23. Remove PICC prior to discharge. Shanthi Tom MD, PhD Resident Physician, Internal Medicine - PGY-3 Pager: [phone] [employer] Secure Message 07/26/2023 7:21 Attending Attestation I interviewed and examined the patient and personally reviewed laboratory studies and medical records. I discussed the case with the Medicine residents and agree with history, exam, assessment and plan of care as documented in the note above (with edits in Green). Nomi Kingsley MD Internal Medicine Hospitalist * Shanthi Tom MD PhD - 07/25/2023 0731 EDT [facility]GRESS [facility] Service Date: 07/25/23 Admit Date: 06/25/2023 13:23 Reason for Admission: 68 y.o. male admitted with a chief complaint of epistaxis; and now with a principal diagnosis of mixed cardiogenic and distributive shock w/ multi-organ dysfunction. Significant 24-hour events: - [facility] declined transfer back - Overnight, developed large lump in left groin proximity to previously suspected hematoma SUBJECTIVE Do okay. Agrees lump in L inguinal area is new over last 24 hours. It is pretty uncomfortable/painful. Has been having lightheadedness with sitting up abruptly/transferring/standing, with some associated nausea. OBJECTIVE Vital Signs: Temp: [36.7 ??C (98 ??F)-37.7 ??C (99.9 ??F)] , Heart Rate: [94 BPM-108 BPM] , Resp: [18] , BP: (116-130)/(78-83) , SpO2: [95 %-99 %] Physical Exam: General: NAD, sitting upright in recliner chair finishing breakfast HEENT: NC/AT, MMM, no scleral icterus Neck: Supple, no cervical lymphadenopathy Cardiac: RRR, S1+S2 normal, no murmur Resp: Breathing comfortably on RA, no adventitious lung sounds, no cough Abdomen: Soft, non-tender, non distended, BS present Extremities: no LE edema, no cyanosis Neuro: Alert and oriented, no focal sensory or motor neurological deficits appreciated, spontaneousmovement of 4 extremities Skin: No rashes, lesions, petechiae on exposed skin. Hematoma on LLE continues to improve Labs: CBC: Recent Labs 07/23/23 0515 07/24/23 0539 07/25/23 0655 WBC 8.50 7.48 7.63 RBC 2.55* 2.64* 2.67* HGB 7.4* 7.8* 7.9* HCT 23.8* 24.6* 25.2* MCV 93 93 94 MCH 29.0 29.5 29.6 MCHC 31.1* 31.7* 31.3* PLT 301 296 264 BMP: Recent Labs 07/23/23 0515 07/24/23 0540 07/25/23 0655 NA 135* 137 138 K 4.9 4.9 4.5 CL 103 103 106 CO2 25 23 24 BUN 25 21 25 CREATININE 1.60* 1.60* 1.50* CALCIUM 8.7 9.0 9.0 MG 1.9 1.7 1.8 Imaging: - No recent imaging Medications: Scheduled: acetaminophen, 500 mg, Q6H aspirin chewable, 81 mg, DAILY atorvastatin, 40 mg, DAILY citalopram, 20 mg, DAILY Dimethicone-Zinc Oxide, , BID empagliflozin, 10 mg, DAILY ferrous sulfate 324 mg (65 mg elemental), 324 mg, Q48H folic acid, 1 mg, DAILY gabapentin, 300 mg, BID heparin, 5,000 Units, Q8H lidocaine 5 %, 1 Patch, DAILY metoprolol SUCCinate, 50 mg, DAILY multivitamin, 1 Tablet, QHS pantoprazole, 40 mg, DAILY petrolatum, , DAILY ramelteon, 8 mg, QHS sodium chloride 0.9 % (flush), 10 mL, WEEKLY thiamine, 100 mg, DAILY white petrolatum, , TID Continuous: PRN: alteplase, 2 mg, PRN dextrose 50 %, 12.5 g, PRN diclofenac sodium, 2 g, BID PRN lidocaine, 2 mg, PRN prochlorperazine, 10 mg, Q6H PRN Or prochlorperazine edisylate, 10 mg, Q6H PRN sodium chloride 0.9 % (flush), 10 mL, PRN sodium chloride 0.9 % (flush), 20 mL, PRN ASSESSMENT Derrick Hobson is a 68 y.o. male with a PMHx notable for HFrEF, Afib, COPD, and treated Hep C as a transfer from [facility] to [facility] on 07/10/23 with epistaxis, but ultimately found to be in multiorganfailure secondary to mixed cardiogenic/conservative shock and transferred here for consideration ofRRT. Now with prolonged hospital course complicated by hypotension, new severe systolic heart failure, AHRF, electrolyte derangements, shock liver, and oliguric acute kidney failure. Now with significant improvements in mental status and kidney function, with last HD session 07/05. Now focusing on titration of GDMT and regaining strength. Working toward plan of [facility]. Hospitalization continues to complicated by intermittent complications PLAN Heart failure with improved ejection fraction (EF 20-25% --> 40%) Mixed cardiogenic/distributive shock, resolved EF improved significantly from 20% on admission to 40% on 06/27, to 35-40% on 07/16. NM SPECT stress test 07/18 with fixed defect of the RCA - no indication for revascularization -goal SBP 120-160, heart rate <100 per cardiology -atorvastatin 40mg daily -Titration of GDMT -Transition beta-clyde to metoprolol succinate 50 mg daily -Continue empagliflozin 10 mg daily -hold spironolactone, losartan given elevated potassium and soft BP/intolerance to quad GDMT therapy - f/u with outpatient cardiology for HF at discharge Persistent Afib (with RVR, resolved) -Was on 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 apixaban 5 mg twice daily, but has been plagued with recurrent epistaxis 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 and prompting this current admission - CHADSVASc score is 4 Plan: - Rate control with metoprolol as above -Holding on restarting 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 DOAC (Apixaban 5mg) given severe anemia recurrent epistaxis and right inguinal/thigh hematoma Recurrent right inguinal/thigh hematoma - No left SFA hematoma while in the MICU status post prior CTA and, ultrasounds - Records indicate left inguinal A-line placed at [facility] prior to transfer - Clinical course seems like this resolved/achieved hemostasis, now seems like it has recurred/progressed over the last 24 hours Plan: - Follow-up ultrasound from today, preliminary looks like size has progressed - Contingency for CTA and consideration for IR embolization if progresses/continues to recur - Temporarily hold DVT prophylaxis for the next 24 hours out of caution - Continue to hold therapeutic anticoagulation Recurrent epistaxis -Patient reports it been happening over the past year 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, 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, had to be treated with multiple Rhino Rocket's, reports undergoing left nares cauterization in the past -Most recent epistaxis occurred while hospitalized ~06/20 Plan: - Petroleum jelly to nares twice daily for moisturization - Discussed with ENT, recommended against acute intervention while hospitalized, recommended outpatient follow-up as well as consideration for AC sparing approaches such as Watchman Severe protein calorie malnutrition NG removed 07/14. All meds and food PO. - Nutrition following - Mighty shakes TID, magic cups BID - Regular diet Chronic anemia -Anemia panel labs most consistent with at least a component of JANUSZ, likely multifactorial - s/p 500 mg IV iron sucrose 07/23/2023 Plan: - Likely intermittent IV iron sucrose if remains hospitalized for goal ~1500 mg total - Continue oral iron supplement every 4 hours - daily CBC CHRONIC/STABLE/RESOLVED: AHRF 2/2 hospital acquired pneumonia, resolved: s/p pip-tazo (end 07/13) Mood disorder: 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 citalopram 20 mg ?Neuropathic pain: 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 gabapentin 800mg TID restarted 07/11 at renally adjusted dose COPD: 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 duonebs PRN Candiduria: not treating per ID unless clinical worsening (would do fluconazole) Polysubstance use disorder: hx cocaine use, ?EtOH disorder, ?opioid use Acute toxic metabolic encephalopathy, resolved: delirium precautions CHECKLIST: Consults: None Diet: DIET REGULAR VTE Prophylaxis: heparin 5000units q8h Code status: Full Code PT/OT: Recommending [facility] Discharge Plan: Will need [facility] at discharge, medically appropriate to list. [facility] declined transfer 07/24/23. Shanthi Tom MD, PhD Resident Physician, Internal Medicine - PGY-3 Pager: [phone] [place] 07/25/2023 12:15 Associated attestation - Nomi Kingsley MD - 07/25/20232034 EDT ATTENDING ATTESTATION: I have reviewed the previous notes and labs. I have seen and examined the patient and agree with the assessment and plan as outlined in the resident's note below. Recurrent left femoral hematoma from prior a-line insertion, with associated discomfort. CT angio LLE showed extravasation from superficial femoral artery. Hgb and blood pressures stable, but will continue to monitor and treat with pressure if recurs/expands. I spent a total of 35 minutes on the date of this encounter meeting with the patient and reviewing documentation/coordinating care as described in the above note. Nomi Kingsley MD Medicine Hospitalist * Lois Rodriguez, PT - 07/24/2023 1703 EDT [facility] Rehabilitation Therapy Acute Therapies [facility] Physical Therapy Encounter Note Date of Service: 07/24/2023 Subjective/Objective Subjective I can't tell if I have had a bowel movement but I think this movement is going to make me go (Patient was incontinent of stool) Objective Intervention completed today: Time: 7953-0499 Total treatment time: 30 minutes. Timed code treatment minutes: 30 Patient sitting in recliner chair at start of session. He consented to interventions Vital Signs: Activity Heart rate (bpm) Blood Pressure (mmHg) Respiratory rate (breaths/min) Oxygen Sat/ Fractions of inspired Oxygen SPO2/FIO2 % Pre 92/67 105 99% on room air During Post 113/78 119 99% on room air Patient with no complaint of dizziness with change of position Rolling walker was obtained and fitted to patient. Patient ambulated 40 feet with rolling walker and minimal contact guard assist. Patient provided with cues for proper placement of rolling walker and sequencing. Patient demonstrating step thru gait pattern and independent management of rolling walker. Patient with loss of balance x 3 requiring exte rnal support of caretaker. No knee buckling Sit to stand: cues for hand placment: minimal contact guard Stand to sit to recliner chair: cues for hand placement and to ensure that he was properly positioned along edge of chair.- minimal contact guard assist. Visitors arrived and patient requested to stay in chair and to visit with his guests. Patient left in recliner chair with chair alarm in place and call larson in reach Patient/Family Education: Topic: Assistive device/technique Gait Safety Transfers Learner: patient Method: verbal Barriers to Learning: none noted Outcome: requires assist and needs practice Team Communication: Patient status discussed with RN prior to and after session Recommendation is for patient to use rolling walker for transfers bed to chair vs isac steady. Assessment/Plan Assessment Patient tolerated PT session today despite low BP at start. Patient is making functional progress as demonstrated by improved bed mobility, transfers and he was able to walk 40 feet with rolling walker for the first time. Patient lives alone, has limited tolerance to activity and he has had a prolonged hospitalization I therefore support [facility] placement once medically stable for transfer. Plan Continue per plan of care Recommended Discharge Destination: Sub-acute rehabilitation Recommended Discharge Services: Physical therapy at rehabilitation facility Recommended Equipment Needs: Rolling walker and To be determined by next care provider Other recommendations: Occupational Therapy consult Primary Therapist: Pager: [phone] Lois Rodriguez, PT 07/24/2023 17:03 * Niecy Reynolds - 07/24/2023 2302 EDT [facility] Department of Case Management and Social Work Case Management Progress Note Patient Name Level of Care and Accommodation Code: Patient Class: Medically Ready: Y/N Derrick Hobson Acute General Inpatient No Primary Dx: Decisional Capacity: Y/N Primary Support/ CareGiver: Advance Directive Cardiogenic shock (HCC-CMS) yes Supports:siblings Advance Directives (For Healthcare) Healthcare Directive: No, patient unable to respond due to condition Information Provided on Healthcare Directives: No Information on Healthcare Directives Requested: No Disposition Information Appropriate to transfer back: Y/N Length of Stay (in days): Estimated Date of D/C: LTC Medicaid Status: yes 29 TBD No Primary Care Provider: AR/AR[facility]/SNF referred: Y/N Bed Offers: Y/N Escalated to Leadership: Y/N Davian Guzman no no yes Mobility Level: Recommended D/C Location Payor: Bedside Mobility Assessment Tool (BMAT) Bedrest or non-weight bearing orders?: No Assessment Level 1-Sit & Shake: Fail Mobility level determined: Mobility Level 4 use gait belt, walker, crutches, cane, prosthetic(s) Number of caregivers reccommended: 1 Recommended Discharge Destination PT Recommended Discharge Destination: Subacute rehabilitation Payor: MEDICARE / Plan: MEDICARE A/B / Product Type: Medicare GL / Barriers to Discharge Ischemic workup-waiting for results Plan Working towards transfer to [facility]. Transfer center consult placed. MD to MD conversations to take place next. CM received a call from pt's behavioral health case manager, Samantha, at [facility]. She requested a call toknow where pt discharges to. [phone]. E-Signature MINERVA Kingston, M. Ed. [employer] Social Work and Case Management 07/24/23 15:34 * Shanthi Tom MD PhD - 07/24/[address] [facility] MEDICINE INPATIENT PROGRESS NOTE Service Date: 07/24/23 Admit Date: 06/25/2023 13:23 Reason for Admission: 68 y.o. male admitted with a chief complaint of epistaxis; and now with a principal diagnosis of mixed cardiogenic and distributive shock w/ multi-organ dysfunction. Significant 24-hour events: - No significant clinical events SUBJECTIVE Derrick finishing his breakfast this morning. He does recount having some mild indigestion/abdominal pain yesterday without nausea or emesis. He also has some very mild intermittent right lower/upper abdominal pain that is worse with lying down. Currently, totally asymptomatic after finishing breakfast. ED reiterates that he is had a history of epistaxis over the past year, some quite serious. He doesreport that he had cauterization of his left nostril 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. His last bloody nose was about 3 days ago, which took a minute to resolve. He notes that his brother is hopefully coming to visit him from [place] today. He continuesto be agreeable to possible transfer back to [facility]. He stood and transferred to chair, but has not been able to ambulate. OBJECTIVE Vital Signs: Temp: [37.1 ??C (98.7 ??F)-37.7 ??C (99.8 ??F)] , Heart Rate: [90 BPM-102 BPM] , Resp: [18-20] , BP: (104-123)/(74-80) , SpO2: [92 %-94 %] Physical Exam: General: NAD, sitting upright in recliner chair finishing breakfast HEENT: NC/AT, MMM, no scleral icterus Neck: Supple, no cervical lymphadenopathy Cardiac: RRR, S1+S2 normal, no murmur Resp: Breathing comfortably on RA, no adventitious lung sounds, no cough Abdomen: Soft, non-tender, non distended, BS present Extremities: no LE edema, no cyanosis Neuro: Alert and oriented, no focal sensory or motor neurological deficits appreciated, spontaneousmovement of 4 extremities Skin: No rashes, lesions, petechiae on exposed skin. Hematoma on LLE continues to improve Labs: CBC: Recent Labs 07/22/23 0426 07/23/23 0515 WBC 9.12 8.50 RBC 2.66* 2.55* HGB 7.9* 7.4* HCT 24.4* 23.8* MCV 92 93 MCH 29.7 29.0 MCHC 32.4* 31.1* PLT 307 301 BMP: Recent Labs 07/22/23 0426 07/23/23 0515 NA 135* 135* K 5.3* 4.9 CL 103 103 CO2 23 25 BUN 28* 25 CREATININE 1.66* 1.60* CALCIUM 8.9 8.7 MG 1.9 1.9 Imaging: - No recent imaging Medications: Scheduled: acetaminophen, 500 mg, Q6H aspirin chewable, 81 mg, DAILY atorvastatin, 40 mg, DAILY citalopram, 20 mg, DAILY Dimethicone-Zinc Oxide, , BID empagliflozin, 10 mg, DAILY ferrous sulfate 324 mg (65 mg elemental), 324 mg, Q48H folic acid, 1 mg, DAILY gabapentin, 300 mg, BID heparin, 5,000 Units, Q8H lidocaine 5 %, 1 Patch, DAILY metoprolol TARtrate, 12.5 mg, BID multivitamin, 1 Tablet, QHS pantoprazole, 40 mg, DAILY petrolatum, , DAILY ramelteon, 8 mg, QHS sodium chloride 0.9 % (flush), 10 mL, WEEKLY thiamine, 100 mg, DAILY Continuous: PRN: alteplase, 2 mg, PRN dextrose 50 %, 12.5 g, PRN diclofenac sodium, 2 g, BID PRN ipratropium-albuteroL, 3 mL, Q4H PRN lidocaine, 2 mg, PRN prochlorperazine, 10 mg, Q6H PRN Or prochlorperazine edisylate, 10 mg, Q6H PRN sodium chloride 0.9 % (flush), 10 mL, PRN sodium chloride 0.9 % (flush), 20 mL, PRN white petrolatum, , PRN ASSESSMENT Derrick Hobson is a 68 y.o. male with a PMHx notable for HFrEF, Afib, COPD, and treated Hep C as a transfer from [facility] to [facility] on 07/10/23 with epistaxis, but ultimately found to be in multiorganfailure secondary to mixed cardiogenic/conservative shock and transferred here for consideration ofRRT. Now with prolonged hospital course complicated by hypotension, new severe systolic heart failure, AHRF, electrolyte derangements, shock liver, and oliguric acute kidney failure. Now with significant improvements in mental status and kidney function, with last HD session 07/05. Now focusing on titration of GDMT and regaining strength. Working toward plan of [facility] or transfer to [facility] at hospital discharge. PLAN Heart failure with improved ejection fraction (EF 20-25% --> 40%) Mixed cardiogenic/distributive shock, resolved EF improved significantly from 20% on admission to 40% on 06/27, to 35-40% on 07/16. NM SPECT stress test 07/18 with fixed defect of the RCA - no indication for revascularization -goal SBP 120-160, heart rate <100 per cardiology -atorvastatin 40mg daily -Titration of GDMT -Transition beta-clyde to metoprolol succinate 50 mg daily -Continue empagliflozin 10 mg daily -hold spironolactone, losartan given elevated potassium and soft BP/intolerance to quad GDMT therapy - f/u with outpatient cardiology for HF at discharge Persistent Afib (with RVR, resolved) -Was on 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 apixaban 5 mg twice daily, but has been plagued with recurrent epistaxis 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 and prompting this current admission - CHADSVASc score is 4 Plan: - Rate control with metoprolol as above -Holding on restarting 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 DOAC (Apixaban 5mg) given severe anemia and recurrent epistaxis Recurrent epistaxis -Patient reports it been happening over the past year 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, 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, had to be treated with multiple Rhino Rocket's, reports undergoing left nares cauterization in the past -Most recent epistaxis occurred while hospitalized ~06/20 Plan: - Petroleum jelly to nares twice daily for moisturization - Discussed with ENT, recommended against acute intervention while hospitalized, recommended outpatient follow-up as well as consideration for AC sparing approaches such as Watchman Severe protein calorie malnutrition NG removed 07/14. All meds and food PO. - Nutrition following - Mighty shakes TID, magic cups BID - Regular diet Acute kidney failure, suspected ATN, improving Anasarca, resolved Good UOP; last HD was 07/06/2023. L IJ dilaysis line removed 07/10. -Daily BMP, Mg -Strict I/O Chronic anemia -Anemia panel labs most consistent with at least a component of JANUSZ, likely multifactorial - s/p 500 mg IV iron sucrose 07/23/2023 Plan: - Likely intermittent IV iron sucrose if remains hospitalized for goal ~1500 mg total - Continue oral iron supplement every 4 hours - daily CBC CHRONIC/STABLE/RESOLVED: AHRF 2/2 hospital acquired pneumonia, resolved: s/p pip-tazo (end 07/13) Mood disorder: 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 citalopram 20 mg ?Neuropathic pain: 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 gabapentin 800mg TID restarted 07/11 at renally adjusted dose COPD: 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 duonebs PRN Candiduria: not treating per ID unless clinical worsening (would do fluconazole) Polysubstance use disorder: hx cocaine use, ?EtOH disorder, ?opioid use Acute toxic metabolic encephalopathy, resolved: delirium precautions CHECKLIST: Consults: None Diet: DIET REGULAR VTE Prophylaxis: heparin 5000units q8h Code status: Full Code PT/OT: Looking for updated PT/OT recommendations regarding dispo planning Discharge Plan: Highly suspecting patient Will require [facility] at hospital discharge, considering inpatient or transfer to [facility] once hemodynamically stable and no longer needing tertiary care Shanthi Tom MD, PhD Resident Physician, Internal Medicine - PGY-3 Pager: [phone] [employer] Secure Message 07/24/2023 6:20 Associated attestation - Nomi Kingsley MD - 07/24/20232021 EDT ATTENDING ATTESTATION: I have reviewed the previous notes, labs, and radiology data. I have seen and examined the patient and agree with the assessment and plan as outlined in the resident's note below. I spent a total of 25 minutes on the date of this encounter meeting with the patient and reviewing documentation/coordinating care as described in the above note. Nomi Kingsley MD Medicine Hospitalist * Shanthi Tom MD PhD - 07/23/2023 0617 EDT [facility] MEDICINE INPATIENT PROGRESS NOTE Service Date: 07/23/23 Admit Date: 06/25/2023 13:23 Reason for Admission: 68 y.o. male admitted with a chief complaint of epistaxis; and now with a principal diagnosis of mixed cardiogenic and distributive shock w/ multi-organ dysfunction. Significant 24-hour events: - Nose bleed yesterday AM - elevated HR to 135 07/21 evening, improved in AM SUBJECTIVE Derrick was sitting up drinking coffee with breakfast. Says today he just feels tired, but otherwise doing ok. He appears improved from the last few days since onset of hypotensive events. OBJECTIVE Vital Signs: Temp: [37.1 ??C (98.7 ??F)-37.3 ??C (99.1 ??F)] , Heart Rate: [83 BPM-150 BPM] , Resp: [16-18] , BP: (91-110)/(69-77) , SpO2: [91 %-100 %] Physical Exam: General: NAD, laying in bed HEENT: NC/AT, MMM, no scleral icterus Neck: Supple, no cervical lymphadenopathy Cardiac: RRR, S1+S2 normal, no murmur Resp: Breathing comfortably on RA, no adventitious lung sounds, no cough Abdomen: Soft, non-tender, non distended, BS present Extremities: no LE edema, no cyanosis Neuro: Alert and oriented, no focal sensory or motor neurological deficits appreciated, spontaneousmovement of 4 extremities Skin: No rashes, lesions, petechiae on exposed skin. Hematoma on LLE continues to improve Labs: CBC: Recent Labs 07/21/23 0616 07/22/236 07/23/23 0515 WBC 9.10 9.12 8.50 RBC 2.80* 2.66* 2.55* HGB 8.0* 7.9* 7.4* HCT 25.8* 24.4* 23.8* MCV 92 92 93 MCH 28.6 29.7 29.0 MCHC 31.0* 32.4* 31.1* PLT 375 307 301 BMP: Recent Labs 07/21/23 0616 07/22/2342507/23/23 0515 NA 136 135* 135* K 5.2* 5.3* 4.9 CL 105 103 103 CO2 23 23 25 BUN 28* 28* 25 CREATININE 1.68* 1.66* 1.60* CALCIUM 8.8 8.9 8.7 MG 1.8 1.9 1.9 Cardiac Markers: Recent Labs 07/20/23 1105 TROPONINI <0.034 Imaging: - No recent imaging Medications: Scheduled: acetaminophen, 500 mg, Q6H aspirin chewable, 81 mg, DAILY atorvastatin, 40 mg, DAILY citalopram, 20 mg, DAILY Dimethicone-Zinc Oxide, , BID ferrous sulfate 324 mg (65 mg elemental), 324 mg, Q48H folic acid, 1 mg, DAILY gabapentin, 300 mg, BID heparin, 5,000 Units, Q8H lidocaine 5 %, 1 Patch, DAILY metoprolol TARtrate, 12.5 mg, BID multivitamin, 1 Tablet, QHS pantoprazole, 40 mg, DAILY petrolatum, , DAILY ramelteon, 8 mg, QHS sodium chloride 0.9 % (flush), 10 mL, WEEKLY thiamine, 100 mg, DAILY Continuous: PRN: alteplase, 2 mg, PRN dextrose 50 %, 12.5 g, PRN diclofenac sodium, 2 g, BID PRN ipratropium-albuteroL, 3 mL, Q4H PRN lidocaine, 2 mg, PRN prochlorperazine, 10 mg, Q6H PRN Or prochlorperazine edisylate, 10 mg, Q6H PRN sodium chloride 0.9 % (flush), 10 mL, PRN sodium chloride 0.9 % (flush), 20 mL, PRN white petrolatum, , PRN ASSESSMENT Derrick Hobson is a 68 y.o. male with a PMHx notable for HFrEF, Afib, COPD, and treated Hep C as a transfer from [facility] to [facility] on 07/10/23 with epistaxis, but ultimately found to be in multiorganfailure secondary to mixed cardiogenic/conservative shock and transferred here for consideration ofRRT. Now with prolonged hospital course complicated by hypotension, new severe systolic heart failure, AHRF, electrolyte derangements, shock liver, and oliguric acute kidney failure. Complex hospitalization course with significant improvements in mental status and kidney function, with last HD session 07/05. Now focusing on titration of GDMT challenging due to soft blood pressures. Working toward plan of [facility] or transfer to [facility] at hospital discharge. PLAN Heart failure with improved ejection fraction (EF 20-25% --> 40%) Mixed cardiogenic/distributive shock, resolved EF improved significantly from 20% on admission to 40% on 06/27, to 35-40% on 07/16. NM SPECT stress test 07/18 with fixed defect of the RCA - no indication for revascularization -goal SBP 120-160, heart rate <100 per cardiology -atorvastatin 40mg daily -Titration of GDMT -metoprolol tartrate 12.5mg BID, goal to switch to succinate 25mg 07/23 - restart empagliflozin 10mg 07/22 -hold spironolactone, losartan given elevated potassium and soft BP - f/u with outpatient cardiology for HF at discharge Persistent Afib (with RVR, resolved): metoprolol as above, consider starting apixaban or other therapeutic AC in coming days given CHADSVASc score is 4 Plan: - Rate control with metoprolol as above - consider restarting 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 DOAC (Apixaban 5mg) in the coming days once feel comfortable with bleeding risk Severe protein calorie malnutrition NG removed 07/14. All meds and food PO. - Nutrition following - Mighty shakes TID, magic cups BID - Regular diet Acute kidney failure, suspected ATN, improving Anasarca, resolved Good UOP; last HD was 07/06/2023. L IJ dilaysis line removed 07/10. -Daily BMP, Mg -Strict I/O L femoral hematoma, improving Chronic microcytic anemia Coagulopathy/DIC, thrombocytopenia, resolved -Anemia labs showing strong evidence of iron deficiency Plan: - Will be a great candidate for IV iron to help replenish iron stores while hospitalized - Continue oral iron supplement every 4 hours - daily CBC CHRONIC/STABLE/RESOLVED: AHRF 2/2 hospital acquired pneumonia, resolved: s/p pip-tazo (end 07/13) Mood disorder: 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 citalopram 20 mg ?Neuropathic pain: 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 gabapentin 800mg TID restarted 07/11 at renally adjusted dose COPD: 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 duonebs PRN Candiduria: not treating per ID unless clinical worsening (would do fluconazole) Polysubstance use disorder: hx cocaine use, ?EtOH disorder, ?opioid use Acute toxic metabolic encephalopathy, resolved: delirium precautions CHECKLIST: Consults: none Diet: DIET REGULAR VTE Prophylaxis: heparin 5000units q8h Code status: Full Code PT/OT: Looking for updated PT/OT recommendations regarding dispo planning Discharge Plan: Highly suspecting patient Will require [facility] at hospital discharge, considering inpatient or transfer to [facility] once hemodynamically stable and no longer needing tertiary care Elinor Clark MS3 Attestation statement: I was present with the medical student for the history, exam, and medical decision making documented. I have personally performed my own physical exam and medical decision making. I have verified and agree with (or have edited) the medical student's documentation. Shanthi Tom MD, PhD PGY-3, Internal Medicine Pager: [phone] [employer] Secure Message 07/23/2023 6:18 Associated attestation - Nomi Kingsley MD - 07/23/2023 9465 EDT ATTENDING ATTESTATION: The resident was present with the medical student for the history, exam, and medical decision making documented. I have personally performed my own physical exam and medical decision making. I have verified and agree with the combined medical student's and resident's documentation. I spent a total of 35 minutes on the date of this encounter meeting with the patient and reviewing documentation/coordinating care as described in the above note. Nomi Kingsley MD Medicine Hospitalist * Sunny Georges MD - 07/22/2023 0730 EDT Medicine Progress Note Service Date: 07/22/2023 Admit Date: 06/25/2023 13:23 Reason for Admission: 68 y.o. male admitted with a chief complaint of epistaxis and now with a principal diagnosis of mixed cardiogenic/distributive shock. 24 Hour Events: HR to 160s yesterday PM with strain of BM, metop 12.5mg admin and HR <100. EKG following. 13 beats of v tach, resolved. Subjective/Objective Subjective Derrick woke up with a nosebleed that resulted in a larger clot. He was still feeling out of sortstoday, but appeared improved and was conversational, sitting in his armchair watching TV. Objective Vital Signs Temp: [36.7 ??C (98 ??F)-37.3 ??C (99.1 ??F)] , Heart Rate: [83 BPM-165 BPM] , Resp: [16] , BP: (74-131)/(51-81) , SpO2: [97 %-98 %] Physical Exam Gen: NAD, awake, sitting comfortably in the chair ENT: sclera without icterus Skin: warm, dry, intact on visible surfaces Cardiac: Regular rate and rhythm, no murmurs/rubs/gallops, +S1/S2 Resp: CTAB Abd: Soft, non-tender, non-distended Extr: No swelling/erythema, ecchymosis on extremities in various stages of healing Neuro: pt conversational and answering questions appropriately and quickly. Spontaneous limb movement. Labs: Reviewed Imaging: Reviewed Assessment/Plan Assessment Derrick Hobson is a 68 y.o. male with limited medical records available but a PMH significant for AF, COPD, Hep C, who initially presented at OSH for epistaxis with a prolonged hospital course complicated by hypotension, new severe systolic heart failure, AHRF, electrolyte derangements, and oliguria, consistent with cardiogenic shock, shock liver, and acute kidney failure of uncertain etiology who was transferred to [facility] for initiation of dialysis. Complex hospitalization course with significant improvements in mental status and kidney function, with last HD session 07/05.Titration of GDMTchallenging due to hypotension. Will need AR[facility]IS on discharge. Plan Heart failure with improved ejection fraction (EF 20-25% --> 40%) Mixed cardiogenic/distributive shock, resolved EF improved significantly from 20% on admission to 40% on 06/27, to 35-40% on 07/16. NM SPECT stress test 07/18 with fixed defect of the RCA - no indication for revascularization -goal SBP 120-160, heart rate <100 per cardiology -Titration of GDMT -metoprolol tartrate 12.5mg BID with plan to switch back to succinate when hemodynamically improved -hold spironolactone, losartan, empagliflozin given soft BP -cardiology consulted, appreciate recs - f/u with outpatient cardiology for HF - atorvastatin 40 mg daily Severe protein calorie malnutrition NG removed 07/14. All meds and food PO. - Nutrition following, recommended liberalization of heart healthy diet restriction - Mighty shakes TID, magic cups BID - trial of Ensure Plus due to dislike of might shakes Acute kidney failure, suspected ATN, improving Anasarca, resolved Good UOP; last HD was 07/06/2023. L IJ dilaysis line removed 07/10. -Daily BMP, Mg -Strict I/O L femoral hematoma, improving Chronic microcytic anemia Coagulopathy/DIC, thrombocytopenia, resolved -daily CBC Ascites, shock liver, resolved Diagnosis of cirrhosis unlikely. No imaging findings to suggest this diagnosis. Ascites may have been cardiac in nature, but no paracentesis was performed and no SAAG level to determine definitively.Total protein >2.5mg throughout MICU admission and elevated BNP makes cardiac etiology more likely. - Don't anticipate he will need EGD or hepatology referral on dc CHRONIC/STABLE/RESOLVED: AHRF 2/2 hospital acquired pneumonia, resolved: s/p pip-tazo (end 07/13) Mood disorder: 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 citalopram 20 mg ?Neuropathic pain: 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 gabapentin 800mg TID restarted 07/11 at renally adjusted dose COPD: 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 duonebs PRN Candiduria: not treating per ID unless clinical worsening (would do fluconazole) Polysubstance use disorder: hx cocaine use, ?EtOH disorder, ?opioid use Acute toxic metabolic encephalopathy, resolved: delirium precautions Persistent Afib (with RVR, resolved): metoprolol as above, consider starting apixaban or other therapeutic AC in coming days given CHADSVASc score is 4 CHECKLIST: VTE Prophylaxis: heparin TID Code Status: Full Discharge Plan: Will require [facility] given degree of weakness - once stable from hemodynamics perspective will be stable for transfer to [facility] vs back to [facility] Elinor Clark, MS3 Attestation statement: I was present with the medical student for the history, exam, and medical decision making documented. I have verified and agree with (or, as indicated, have edited) the medicalstudent's documentation. Leonor Zamudio MD MPH Internal Medicine PGY-2 07/22/2023 13:03 Dr. Kingsley to assume care on 07/22 Attending Attestation The resident was present with the medical student for the history, exam, and medical decision making documented. I have personally performed my own physical exam and medical decision making. I have verified and agree with (or have edited in blue underline) the combined medical student's and resident's documentation. Sunny Georges MD 07/22/2023 17:07 * Jazzy Curry RN - 07/21/2023 1854 EDT Patients HR jumped up to the 160s and sustained after exerting himself having a BM. He was asymptomatic with a BP of 99/81. was notified and a 12.5mg metoprolol PO dose was given. His daily metoprolol was held this morning due to low blood pressures. He received a 500ml bolus of LR earlier in the day. His HR is now averaging 100bmp after metoprolol was given. * Sunny Georges MD - 07/21/2023 0713 EDT Medicine Progress Note Service Date: 07/21/2023 Admit Date: 06/25/2023 13:23 Reason for Admission: 68 y.o. male admitted with a chief complaint of epistaxis and now with a principal diagnosis of mixed cardiogenic/distributive shock. 24 Hour Events: PATRICK Subjective/Objective Subjective Feels off today in his head and stomach. Not having any dizziness. Admits that he's not eating as much as he probably should. Otherwise no chest pain, shortness of breath. Objective Vital Signs Temp: [36.8 ??C (98.2 ??F)-37.6 ??C (99.6 ??F)] , Heart Rate: [85 BPM-111 BPM] , Resp: [16-18] , BP: (71-127)/(46-75) , SpO2: [95 %-98 %] Physical Exam Gen: NAD, awake, sitting comfortably in the chair ENT: sclera without icterus Skin: warm, dry, intact on visible surfaces Cardiac: Regular rate and rhythm, no murmurs/rubs/gallops, +S1/S2 Resp: CTAB Abd: Soft, non-tender, non-distended Extr: No swelling/erythema, ecchymosis on extremities in various stages of healing Neuro: pt conversational and answering questions appropriately and quickly. Spontaneous limb movement. Labs: Reviewed Imaging: Reviewed Assessment/Plan Assessment Derrick Hobson is a 68 y.o. male with limited medical records available but a PMH significant for AF, COPD, Hep C, who initially presented at OSH for epistaxis with a prolonged hospital course complicated by hypotension, new severe systolic heart failure, AHRF, electrolyte derangements, and oliguria, consistent with cardiogenic shock, shock liver, and acute kidney failure of uncertain etiology who was transferred to [facility] for initiation of dialysis. Complex hospitalization course with significant improvements in mental status and kidney function, with last HD session 07/05.Titration of GDMTchallenging, due to orthostatic hypotension. Will need [facility] on discharge. Plan Heart failure with improved ejection fraction (EF 20-25% --> 40%) Mixed cardiogenic/distributive shock, resolved EF improved significantly from 20% on admission to 40% on 06/27, to 35-40% on 07/16. NM SPECT stress test 07/18 with fixed defect of the RCA - no indication for revascularization -goal SBP 120-160, heart rate <100 per cardiology -Titration of GDMT -metoprolol succinate 25mg daily -hold spironolactone, losartan, empagliflozin given soft BP -cardiology consulted, appreciate recs - f/u with outpatient cardiology for HF - atorvastatin 40 mg daily Severe protein calorie malnutrition NG removed 07/14. All meds and food PO. - Nutrition following - Mighty shakes TID, magic cups BID Acute kidney failure, suspected ATN, improving Anasarca, resolved Good UOP; last HD was 07/06/2023. L IJ dilaysis line removed 07/10. -Daily BMP, Mg -Strict I/O L femoral hematoma, improving Chronic microcytic anemia Coagulopathy/DIC, thrombocytopenia, resolved -daily CBC Ascites, shock liver, resolved Diagnosis of cirrhosis unlikely. No imaging findings to suggest this diagnosis. Ascites may have been cardiac in nature, but no paracentesis was performed and no SAAG level to determine definitively.Total protein >2.5mg throughout MICU admission and elevated BNP makes cardiac etiology more likely than cirrhosis. - Don't anticipate he will need EGD or hepatology referral on dc CHRONIC/STABLE/RESOLVED: AHRF 2/2 hospital acquired pneumonia, resolved: s/p pip-tazo (end 07/13) Mood disorder: 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 citalopram 20 mg ?Neuropathic pain: 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 gabapentin 800mg TID restarted 07/11 at renally adjusted dose COPD: 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 duonebs PRN Candiduria: not treating per ID unless clinical worsening (would do fluconazole) Polysubstance use disorder: hx cocaine use, ?EtOH disorder, ?opioid use Acute toxic metabolic encephalopathy, resolved: delirium precautions Persistent Afib (with RVR, resolved): metoprolol as above CHECKLIST: VTE Prophylaxis: heparin TID Code Status: Full Discharge Plan: Will require [facility] given degree of weakness - once stable from hemodynamics perspective will be stable for transfer to [facility] vs back to [facility] Leonor Zamudio MD MPH Internal Medicine PGY-2 07/21/2023 12:10 I have interviewed and examined the patient on 07/21/23. I have personally reviewed all laboratory and radiographic data as well as applicable prior records. I agree with findings and plan of care as documented by the resident. Additions/changes in blue italics. Sunny Georges MD * Madonna Husain, RD - 07/20/2023 1515 EDT Nutrition Assessment Note: Reassessment BACKGROUND DATA Clinical Course Since Last RD Visit: 68 y.o. male with limited medical records available but a PMH significant for AF, COPD, Hep C, whoinitially presented at OSH for epistaxis with a prolonged hospital course complicated by hypotension, new severe systolic heart failure, AHRF, electrolyte derangements, and oliguria, consistent with cardiogenic shock, shock liver, and acute kidney failure of uncertain etiology who was transferred to [facility] for initiation of dialysis. Complex hospitalization course with significant improvements in mental status and kidney function, with last HD session 07/05.Titration of GDMT ongoing 07/19, complicated by episodes of orthostatic hypotension. TTE Limited 07/16 showed wall motion abnormalities and reduced EF, NM SPECT Stress test 07/18 noted mild infarct of the RCA. Will need d/c to [facility] or transfer to [facility] given prolonged course per Elinor Clark MS3 07/20/2023. Subjective: Nursing performing nail hygiene on patient at time of visit. Patient reports that he ate some custard for lunch. He ordered a cheeseburger for dinner with the menu assist person. Patient states that he dislikes the mighty shakes, however would be willing to try Ensure. He likes the galicia magic cups. Current Nutrition Orders: Diet-Heart Healthy, 4 g Na--Mighty shakes TID, Magic Cups BID--Menu Assist Nutrition Focused Physical Exam Incomplete; deferred again today due to patient recently had rapid response for hypotension. Physical Findings: Digestive Systems: Last BM 07/20/23 Dentition: Teeth: Missing teeth per flowsheets Edema: none documented Skin: blanchable redness; DTI coccyx Allergies on file: Clonidine Anthropometrics: Height: 182.9 cm (72) Wt Readings from Last 6 Encounters: 07/20/23 71.7 kg (158 lb 1.1 oz) Weights Filed This Admission 06/25/23 1340 06/28/23 0900 06/29/23 1333 06/30/23 0815 Weight: 80.3 kg (177 lb) 80.3 kg (177 lb) 80.2 kg (176 lb 12.9 oz) 80.7 kg (177 lb 14.6 oz) 07/02/23 0949 07/02/23 1410 07/04/23 1011 07/06/23 0600 Weight: 81 kg (178 lb 9.2 oz) 80 kg (176 lb 5.9 oz) 80 kg (176 lb 5.9 oz) 70.2 kg (154 lb 12.2 oz) 07/06/23 0923 07/09/23 0611 07/10/23 0553 07/12/23 0548 Weight: 70.2 kg (154 lb 12.2 oz) 60.1 kg (132 lb 7.9 oz) 60 kg (132 lb 4.4 oz) 60.1 kg (132 lb 7.9 oz) 07/17/23 0929 07/18/23 0448 07/19/23 0415 07/19/23 0936 Weight: 59.9 kg (132 lb) 66.2 kg (145 lb 15.1 oz) 66.3 kg (146 lb 2.6 oz) 66.2 kg (146 lb) 07/20/23 0600 Weight: 71.7 kg (158 lb 1.1 oz) BMI: 21.44 Weight Change: weight overall down 8.6 kg this admission, however some large fluctuations noted Pertinent Medications: Current Facility-Administered Medications Medication Route Frequency acetaminophen (TYLENOL) tablet 500 mg oral Q6H alteplase (CATHFLO ACTIVASE) injection 2 mg intercatheter PRN aspirin chewable tablet 81 mg oral DAILY [START ON 07/21/2023] atorvastatin (LIPITOR) tablet 40 mg oral DAILY citalopram (CELEXA) tablet 20 mg oral DAILY dextrose 50 % solution 12.5 g intravenous PRN Dimethicone-Zinc Oxide 20-25 % spray,non-aerosol topical BID ferrous sulfate 324 mg (65 mg elemental) EC tablet 324 mg oral Q48H folic acid (FOLVITE) tablet 1 mg oral DAILY gabapentin (NEURONTIN) solution 300 mg oral BID heparin injection 5,000 Units subcutaneous Q8H ipratropium-albuteroL (DUONEB) 0.5 mg-3 mg(2.5 mg base)/3 mL nebulizer solution 3 mL nebulization Q4H PRN lidocaine (PF) 10 mg/mL (1 %) injection 2 mg intradermal PRN lidocaine 5 % (LIDODERM) patch 1 Patch transdermal DAILY metoprolol SUCCinate (TOPROL-XL) tablet 25 mg oral DAILY multivitamin (NEPHROVITE) 0.8 mg tablet 1 Tablet oral QHS pantoprazole (PROTONIX) tablet 40 mg oral DAILY petrolatum (AQU[employer]ALING) 41 % ointment topical DAILY ramelteon (ROZEREM) tablet 8 mg oral QHS sodium chloride 0.9 % (flush) flush 10 mL intercatheter WEEKLY sodium chloride 0.9 % (flush) flush 10 mL intercatheter PRN sodium chloride 0.9 % (flush) flush 20 mL intercatheter PRN thiamine (VITAMIN B1) tablet 100 mg oral DAILY white petrolatum 42 % ointment topical PRN Pertinent Labs: Lab Results Component Value Date/Time NA 137 07/20/2023 06:32 K 5.0 07/20/2023 06:32 CO2 20 (L) 07/20/2023 06:32 CL 106 07/20/2023 06:32 BUN 26 07/20/2023 06:32 CREATININE 1.86 (H) 07/20/2023 06:32 GLUCOSEPOC 119 (H) 07/20/2023 10:53 CALCIUM 9.0 07/20/2023 06:32 PHOS 4.6 (H) 07/18/2023 04:38 MG 1.7 07/20/2023 06:32 Estimated Nutrition Needs: 25-30 kcal/kg (using 70.2 kg) = 2458-5673 kcals/day 1.2 g/kg protein (using 70.2 kg) = 85 g protein/day Fluid per medical team discretion Estimated Nutrition Intake: 25-100 % of meal trays and supplements ASSESSMENT: Variable po intake continues. Patient placed on menu assist to help ensure that he receives 3 mealsdaily consisting of preferred foods. Patient willing to take oral nutrition supplements. These wereadjusted today based on his preferences. Diet texture recently liberalized. Renal function continues to improve. Patient may benefit from a liberalization of heart healthy diet restriction. Nutrition Risk Level: Moderate (2) MEDICAL NUTRITION THERAPY - UPDATED PLAN -Change nephrovitamin to standard adult multivitamin with minerals 1 tablet daily -Suggest liberalize diet to regular; can add 4 g Na restriction if indicated -Nutrition will send chocolate Ensure Plus with breakfast and galicia magic cup at dinner -Continue Menu Assist -Trend weights -Monitor po intake, stool patten and skin -RD following Madonna Husain RD, CD (Call [facility] or use [employer] ([employer] to page RD covering this unit) * Amaury Lamb RN - 07/20/2023 1258 EDT Rapid Response Protocol initiated due to a BP of 62/43 MAP 49 at 10:42. The patient was in intermittently somnolent. Primary team and rapid response team arrived at bedside. 500 mL LR bolus initiatedper provider orders. Monitored BP 15 minutes. BP after fluid bolus was 83/54 MAP 64. EKG performed and telemetry monitoring initiated. Tele showing established afib. Patient became awake and alert with fluid bolus and is currently able to communicate with staff. * Lori Ohara RN - 07/20/2023 1224 EDT Rapid Response Team Nursing Note (SBAR) Team Times: Call Type: RUBBER CUTTING MACHINE TENDER Sepsis Alert: No Call Time: 1053 Call Date: 07/20/23 Call Originator: Nurse NATY Arrival at Bedside: 1057 Team Completion Time: 1130 NATY Completion Time: 1130 Code Status: Full Initial Vitals: BP: 94/67 BP MAP: 76 mm Hg BP Cuff Location: Left arm Heart Rate: 89 BPM SpO2: 97 % Neurological Assessment: Cardiovascular Assessment: Chest Pain: No EKG Status: Yes Respiratory Assessment: O2 Device: None GI/ Assessment: Patient Status: Team Members: NATY (Name): Lori/Zonia Hospitalist (Name): Destini ANC (Name): rohit Respiratory (Name): Joce Orona MD (Name): lazaro Orona RN (Name): Amaury Call debriefed with: Nurse;Doctor;Charge Nurse Additional Detail: RUBBER CUTTING MACHINE TENDER initiated for hypotension in the 60s systolic. On arrival, primary team at the bedside, patientsitting in chair with fluid bolus running. Awake, alert and oriented. Assisted back to bed by sliding him from the chair to the bed and laying supine. Repeat pressures in 70s/80s systolic. PICC line in place, lactic drawn and sent. BPs up to 90s - 100s systolic, remained awake, alert, no apparent distress, conversing with treatment team. Hands and feet cool and slightly mottled, but this has beenclose to baseline for him. Plan is to give 500 ml bolus, cycle bps every 10 minutes with a goal systolic >90. Placed on telemetry and will remain on Olivo 6 for now. ERNs available for further as sistance. * Sunny Georges MD - 07/20/2023 1205 EDT Medicine Progress Note Service Date: 07/20/2023 Admit Date: 06/25/2023 13:23 Reason for Admission: 68 y.o. male admitted with a chief complaint of epistaxis and now with a principal diagnosis of mixed cardiogenic/distributive shock. 24 Hour Events: -NM SPECT Exam -orthostatic hypotension 07/18 PM -hypotensive episode triggering rapid response this AM Subjective/Objective Subjective Derrick was sitting in his chair and having nail care this morning when he felt unwell and was found to have hypotension. Feeling better since fluid bolus and attempting to nap. Fatigued during rapid response call. See RUBBER CUTTING MACHINE TENDER note for details. Objective Vital Signs Temp: [37 ??C (98.6 ??F)] , Heart Rate: [89 BPM] , Resp: [18] , BP: (62-110)/(42-72) , SpO2: [88 %-100 %] Physical Exam Gen: NAD, awake, sitting comfortably in bed. ENT: Scleral icterus improving Skin: Jaundiced-improving, Warm, dry, intact on visible surfaces Cardiac: Regular rate and rhythm, no murmurs/rubs/gallops, +S1/S2 Resp: Slightly coarse breath sounds in anterior lung mckee-improved from yesterday Abd: Soft, non-tender, non-distended Extr: No swelling/erythema, ecchymosis on extremities in various stages of healing-thigh hematoma within margins and improving. Neuro: pt conversational and answering questions appropriately and quickly. Spontaneous limb movement. Medications: Reviewed Labs: Reviewed Imaging: NM Card SPECT Nuclear Stress Test Result date: 07/18 Perfusion: There was a mild intensity, small sized fixed perfusion defect in the apical inferior wall(s) and apex. This indicates small infarction in the RCA coronary territory. Function: Global LV function is mildly to moderately reduced. Post-stress ejection fraction is 42%.There is was hypokinesis of the apical inferior and apical wall . Stress ECG: Stress ECG was negative. Stress data: Patient experienced no chest pain. Assessment/Plan Assessment Derrick Hobson is a 68 y.o. male with limited medical records available but a PMH significant for AF, COPD, Hep C, who initially presented at OSH for epistaxis with a prolonged hospital course complicated by hypotension, new severe systolic heart failure, AHRF, electrolyte derangements, and oliguria, consistent with cardiogenic shock, shock liver, and acute kidney failure of uncertain etiology who was transferred to [facility] for initiation of dialysis. Complex hospitalization course with significant improvements in mental status and kidney function, with last HD session 07/05.Titration of GDMTongoing 07/19, complicated by episodes of orthostatic hypotension. TTE Limited 07/16 showed wall motion abnormalities and reduced EF, NM SPECT Stress test 07/18 noted mild infarct of the RCA. Will need d/c to [facility] or transfer to [facility] given prolonged course. Plan Heart failure with improved ejection fraction (EF 20-25% --> 40%) Mixed cardiogenic/distributive shock, resolved EF improved significantly from 20% on admission to 40% on 06/27, to 35-40% on 07/16. NM SPECT stress test 07/18 with fixed defect of the RCA - no indication for revascularization -goal SBP 120-160, heart rate <100 per cardiology -Titration of GDMT -metoprolol succinate 25mg daily -hold spironolactone, losartan, empagliflozin given soft BP -cardiology consulted, appreciate recs - f/u with outpatient cardiology for HF - start atorvastatin 40 mg on 07/20 Severe protein calorie malnutrition NG removed 07/14. All meds and food PO. - Nutrition following - Mighty shakes TID, magic cups BID Acute kidney failure, suspected ATN, improving Anasarca, resolved Now with return of renal funtion with good UOP; last HD was 07/06/2023. L IJ dilaysis line removed 07/10. -Daily BMP, Mg -Strict I/O L femoral hematoma, improving Chronic microcytic anemia Coagulopathy/DIC, thrombocytopenia, resolved -daily CBC Ascites, shock liver, resolved Diagnosis of cirrhosis unlikely. No imaging findings to suggest this diagnosis. Ascites may have been cardiac in nature, but no paracentesis was performed and no SAAG level to determine definitively.Total protein >2.5mg throughout MICU admission and elevated BNP makes cardiac etiology more likely than cirrhosis. - Don't anticipate he will need EGD or hepatology referral on dc CHRONIC/STABLE/RESOLVED: AHRF 2/2 hospital acquired pneumonia, resolved: s/p pip-tazo (end 07/13) Mood disorder: 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 citalopram 20 mg ?Neuropathic pain: 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 gabapentin 800mg TID restarted 07/11 at renally adjusted dose COPD: 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 duonebs PRN Candiduria: not treating per ID unless clinical worsening (would do fluconazole) Polysubstance use disorder: hx cocaine use, ?EtOH disorder, ?opioid use Acute toxic metabolic encephalopathy, resolved: delirium precautions Persistent Afib (with RVR, resolved): metoprolol as above CHECKLIST: VTE Prophylaxis: heparin TID Code Status: Full Discharge Plan: Will require [facility] given degree of weakness - once stable from hemodynamics perspective will be stable for transfer to [facility] vs back to [facility] Elinor Clark MS3 07/20/2023 12:05 Attestation statement: I was present with the medical student for the history, exam, and medical decision making documented. I have verified and agree with (or, as indicated, have edited) the medicalstudent's documentation. Leonor Zamudio MD MPH Internal Medicine PGY-2 07/20/2023 13:05 Attending Attestation The resident was present with the medical student for the history, exam, and medical decision making documented. I have personally performed my own physical exam and medical decision making. I have verified and agree with (or have edited in blue underline) the combined medical student's and resident's documentation. Sunny Goerges MD 07/20/2023 15:14 * Mercy Kim, PT - 07/20/2023 7365 EDT [facility] Acute Therapy [facility] Contact Note Date of Service: 07/20/2023 Attempted treatment at 0935-pt declined wishing to eat his breakfast. Attempted again at 1005-pt again declined citing he wished to finish his coffee. At ~1100- pt with rapid response due to hypotension (BP ~66). Will continue to follow Mercy Kim, PT 07/20/2023 11:38 * Sunny Georges MD - 07/20/2023 1052 EDT Rapid Response Note SUBJECTIVE: Called to the bedside at 10:45 07/20/2023 for symptomatic hypotension. Patient was sitting up in chair getting his nails done when he stated to the RN that he didn't feel so good. He then became drowsy/less responsive, BP checked with SBP 60s, MAP 52. Other VSS. After a couple of minute s he showed some improvement in mentation and was moved from the chair to the bed, joking throughout. OBJECTIVE: BP 110/72 (BP Cuff Location: Left arm, BP Patient Position: Semi fowlers) Pulse 92 Temp 37 ??C (98.6 ??F) (Oral) Resp 18 Ht 182.9 cm (72) Wt 71.7 kg (158 lb 1.1 oz) SpO2 98% BMI 21.44 kg/m?? Gen: NAD, joking with rapid team Chest: CTAB CV: RRR, S1/S2 normal, no m/r/g Abd: soft, NT, ND Extr: no HOLDEN Neuro: grossly intact strength and sensation Mental status: A+Ox3 PMH reviewed MAR reviewed Hospital course reviewed Data reviewed: CBC: Recent Labs 07/18/23 0437 07/19/23 0257 07/20/23 0633 WBC 10.20 10.88* 10.59* HGB 8.1* 8.1* 8.2* MCV 91 91 92 PLT 375 358 372 Electrolytes: Recent Labs 07/18/23 0438 07/19/23 0257 07/20/23 0632 NA 135* 137 137 K 3.8 4.3 5.0 CL 108 108 106 CO2 17* 20* 20* BUN 23 24 26 CREATININE 1.93* 2.01* 1.86* CALCGFR 37* 35* 39* MG 1.7 2.2 1.7 PHOS 4.6* -- -- CALCIUM 8.7 8.6 9.0 Coags: Recent Labs 07/18/23 0438 INR 1.2* PROTIME 13.2* Lactic Acid: Recent Labs 07/20/23 1105 LACTICACID 2.1* Cardiac Markers: Recent Labs 07/19/23 0318 07/20/23 1105 TROPONINI <0.034 <0.034 BGLs: Recent Labs 07/17/23 1330 07/20/23 1053 GLUCOSEPOC 96 119* ASSESSMENT: 68 y.o.male with PMH significant for AF, COPD, Hep C, with a prolonged hospital course complicated by hypotension, new severe systolic heart failure, AHRF, electrolyte derangements, and oliguria, consistent with cardiogenic shock, shock liver, and acute kidney failure of uncertain etiology. Complexhospitalization course with significant improvements in mental status and kidney function, with last HD session 07/05. New hypotension with acute change in level of consciousness on 07/19 prompted RUBBER CUTTING MACHINE TENDER evaluation. Decrease in BP likely due to hypovolemia in the setting of uptitrating GDMT given other labs are relatively unremarkable. Will plan for repeat fluid bolus while being cautious given HFrEF, holding of medications. PLAN: - 500 cc bolus LR - Lactate, troponin - EKG - Hold spironolactone, empagliflozin for now - Hold parameters documented for metoprolol To remain on floor, goal MAP >60 as long as patient is mentating and maintaining appropriate urine output. LEONOR ZAMUDIO MD MPH 07/20/2023 I participated in the direct delivery of medical care for this patient, whose critical illness impairs one or more vital organ systems such that there is a high probability of imminent or life-threatening deterioration in the patient's condition. Total time spent I spend in the delivery of critical care for the date of service was: 50 min. Sunny Georges MD 07/20/2023 15:12 * Hilda Jung, MS [facility] - 07/19/2023 1657 EDT Speech-Language Pathology Contact Note Pt has been tolerating liberalization of PO diet textures since communication and advancement by [employer] T[employer] SERVIC[employer] to sign off. Hilda Jung MS CCC-[employer]IC T[employer] SERVICER 07/19/2023 16:57 * Mercy Kim, PT - 07/19/2023 1400 EDT 1 [facility] Contact Note Date of Service: 07/19/2023 Pt off floor at stress test, and then notified by OT of significant orthostatic hypotension during OT session (later morning). Attempted at ~1345 but noticed in nrg VS that pt's BP 81/54 at 1333 so tx held today. Will continue to follow. Mercy Kim, PT 07/19/2023 14:00 * uQeenie Augustin, OT - 07/19/2023 1100 EDT [facility] - Occupational Therapy Encounter Note Date of Service: 07/19/2023 Subjective/Objective SUBJECTIVE: I feel nauseous OBJECTIVE: Time: 1030 Total treatment time: 20 minutes. Timed code treatment minutes: 20 Interventions included: Therapeutic Activities: Patient received in bathroom with nursing on isac steady having a sponge bath following return from Stress Test. Patient requiring assistance with all bathing tasks. Required moderate assist for gown donning. Transfers: - partial sit to stand: minimal contact assistance with isac steady - full sit<>stand: minimal contact assistance with isac steady Cues for hand placement and benefits of mobility. Standing tolerance: - in standing patient reporting pain everywhere. Instructed in positioning. - completed orthostatic vitals: see below. Returned to sitting with LE elevated and Informed nursing. Patient denied dizziness/lightheadedness and only complained of nausea and pain. Further mobility/ADLs deferred due to blood pressure. The patient was left in:Chair With the: Call larson in reach and chair alarm on and feet up Vital signs: Activity Blood Pressure (mmHg) sitting, post return from bathroom via isac steady 85/56 standing 59/43 post-stand with feet elevated 100/61 Patient/Family Education: Topic: Benefits of activity Role of OT Adaptive equipment Safety awareness Positioning Learner: patient Method: verbal and demonstration Barriers to Learning: cognitive deficits Outcome: verbalized understanding and reinforcement needed Team Communication: Notified:Nurse By:Face to face communication When:Prior to therapy After therapy About:Readiness for therapy, Response to therapy, and hypotension Assessment/Plan ASSESSMENT: Derrick demonstrated improving functional mobility and alertness since previous session, however limited due to orthostatic hypotension and feeling nauseas. Patient with a blood pressureof 59/43 in standing- nursing notified. Continue to recommend ARAMIS to maximize function when medically ready. PLAN: Continue per plan of care Recommended Discharge Destination: Sub-acute Rehabilitation Recommended Discharge Services: Occupational therapy at rehabilitation facility Recommended Discharge Equipment: To be determined Pager: [phone] Queenie Augustin OT, 07/19/2023, 11:00 * Queenie Augustin OT - 07/19/2023 1010 EDT [facility] Contact Note Date of Service: 07/19/2023 Patient off floor at time of attempt. OT will follow up as appropriate/schedule allows. Queenie Augustin OT, 07/19/2023, 10:11 * Mercy Kim, PT - 07/19/2023 0934 EDT [facility] Contact Note Date of Service: 07/19/2023 Pt off floor at stress test. Mercy Kim, PT 07/19/2023 9:51 * Sunny Georges MD - 07/19/2023 0801 EDT Medicine Progress Note Service Date: 07/19/2023 Admit Date: 06/25/2023 13:23 Reason for Admission: 68 y.o. male admitted with a chief complaint of epistaxis and now with a principal diagnosis of mixed cardiogenic/distributive shock. 24 Hour Events: -overnight EKG with new ST inversions in V2-V6 -NM SPECT today Subjective/Objective Subjective Derrick did not sleep well overnight due to nausea and discomfort. Got a little bit of sleep this morning and feels hungry and like nausea has improved. Pain near hematoma still present but improving. NPO prior to stress test this morning. Objective Vital Signs Temp: [36.8 ??C (98.2 ??F)-37.1 ??C (98.8 ??F)] , Heart Rate: [97 BPM] , Resp: [16] , BP: (59-119)/(43-82) , SpO2: [95 %-100 %] Physical Exam Gen: NAD, awake, sitting comfortably in bed. ENT: Scleral icterus improving Skin: Jaundiced-improving, Warm, dry, intact on visible surfaces Cardiac: Regular rate and rhythm, no murmurs/rubs/gallops, +S1/S2 Resp: Slightly coarse breath sounds in anterior lung mckee-improved from yesterday Abd: Soft, non-tender, non-distended Extr: No swelling/erythema, ecchymosis on extremities in various stages of healing-thigh hematoma within margins and improving. Neuro: mentation markedly improved. Pt conversational and answering questions appropriately and quickly. Spontaneous limb movement. Medications: Reviewed Labs: Reviewed Imaging: NM Card SPECT Nuclear Stress Test pending Assessment/Plan Assessment Derrick Hobson is a 68 y.o. male with limited medical records available but a PMH significant for AF, COPD, Hep C, who initially presented at OSH for epistaxis with a prolonged hospital course complicated by hypotension, new severe systolic heart failure, AHRF, electrolyte derangements, and oliguria, consistent with cardiogenic shock, shock liver, and acute kidney failure of uncertain etiology who was transferred to [facility] for initiation of dialysis. Complex hospitalization course with significant improvements in mental status and kidney function, with last HD session 07/05.Titration of GDMTongoing 07/18. TTE Limited 07/16 showed wall motion abnormalities and reduced EF, ongoing ischemic eval with NM SPECT Stress test 07/18. Will need d/c to [facility] or transfer to [facility] given prolonged course. Plan Heart failure with improved ejection fraction (EF 20-25% --> 40%) Mixed cardiogenic/distributive shock, resolved EF improved significantly from 20% on admission to 40% on 06/27, to 35-40% on 07/16. Will need ischemic workup prior to discharge, cardiology signed off for now. -goal SBP 120-160, heart rate <100 per cardiology -Titration of GDMT -spironolactone 12.5mg -metoprolol succinate 25mg daily -Empagliflozin 10mg -losartan 12.5 mg -cardiology consulted for TTE/ischemic workup prior to discharge, appreciate recs - Limited ECHO showed reduced EF, apical hypokinesis 07/16 - EKG 07/17 showed ischemic changes with T wave inversions and possible LBBB since 07/06 - NM SPECT Stress Test 07/18 - Ischemic eval prior to discharge Severe protein calorie malnutrition NG removed 07/14. All meds and food PO. - Nutrition following - Mighty shakes TID, magic cups BID Acute kidney failure, suspected ATN, improving Anasarca, resolved Now with return of renal funtion with good UOP; last HD was 07/06/2023. L IJ dilaysis line removed 07/10. -Daily BMP, Mg -Strict I/O L femoral hematoma, improving Chronic microcytic anemia Coagulopathy/DIC, thrombocytopenia, resolved Concern for DIC on admission secondary to nasal packing for epistaxis, complicated by hematoma of left medial leg. Hematoma improving daily -daily CBC Ascites, shock liver, improving Diagnosis of cirrhosis unlikely. No imaging findings to suggest this diagnosis. Ascites may have been cardiac in nature, but no paracentesis was performed and no SAAG level to determine definitively.Total protein >2.5mg throughout MICU admission and elevated BNP makes cardiac etiology more likely than cirrhosis. - Don't anticipate he will need EGD or hepatology referral on dc CHRONIC/STABLE/RESOLVED: AHRF 2/2 hospital acquired pneumonia, resolved: s/p pip-tazo (end 07/13) Mood disorder: 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 citalopram 20 mg ?Neuropathic pain: 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 gabapentin 800mg TID restarted 07/11 at renally adjusted dose COPD: 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 duonebs PRN Candiduria: not treating per ID unless clinical worsening (would do fluconazole) Polysubstance use disorder: hx cocaine use, ?EtOH disorder, ?opioid use Acute toxic metabolic encephalopathy, resolved: delirium precautions Persistent Afib (with RVR, resolved): metoprolol as above CHECKLIST: VTE Prophylaxis: heparin TID Code Status: Full Discharge Plan: Will require ARAMIS given degree of weakness - once ischemic eval is done will be stable for transfer back to [facility] vs dc to [facility] Elinor Clark MS3 07/19/2023 10:58 I was present with the Medical student for the history, exam, and medical decision making documented. I have personally performed my own physical exam and medical decision making. I have verified andagree with (or, as indicated, have edited) the medical student's documentation. Dalia Lim MD Internal Medicine, PGY-1 07/19/23 14:17 Attending Attestation The resident was present with the medical student for the history, exam, and medical decision making documented. I have personally performed my own physical exam and medical decision making on 07/19/23. I have verified and agree with (or have edited in underline) the combined medical student's and resident's documentation. Date of service: 07/19/23 Sunny Georges MD 07/20/2023 15:15 * RubaSherman bermeoca - 07/18/2023 1412 EDT Case Management Progress Note Level of Care: Acute Point of origin:[facility] Appropriate to transfer back or to an alternative facility: TBD Discharge plan/estimated date:pending clinical course LT Medicaid Status: N/A Barriers to d/c: Ischemic eval. Support Network: siblings, niece Next Steps: CM received a call from Samantha Trevino from [facility]. [phone]. Samantha stated that pt had home heatlh for PT/OT after shoulder surgery and was not keen on being open to services and was difficult to get to engage. She said he was moderate needs under [facility]. Samantha stated that pt does not have reliable supports at home. Addendum: CM met with pt at bedside today as have previously been unsuccessful. Introduced my role. Pt was sitting up in a chair and eating. Pt does not have very many supports at home, but reported that occasionally friends help out. Pt used a cane at home prior to this admission. CM will continue to monitor the clinical notes, meet with the tt, and regularly check in with the patient throughout their hospital stay to ensure a safe discharge. MINERVA Kingston, M. Ed. [employer] Social Work and Case Management * Sunny Georges MD - 07/18/2023 0735 EDT Medicine Progress Note Service Date: 07/18/2023 Admit Date: 06/25/2023 13:23 Reason for Admission: 68 y.o. male admitted with a chief complaint of epistaxis and now with a principal diagnosis of mixed cardiogenic/distributive shock. 24 Hour Events: Limited ECHO completed yesterday. No other significant events Subjective/Objective Subjective Derrick is feeling ok today, does not find the hospital bed comfortable. Had many questions about his health, next steps for getting out of the hospital, and his belongings (specifically his dentures). Denies having an appetite and nausea but is not having problems with eating. Objective Vital Signs Temp: [36.4 ??C (97.6 ??F)-36.9 ??C (98.4 ??F)] , Heart Rate: [84 BPM-105 BPM] , Resp: [16] , BP: (97-124)/(66-84) , SpO2: [96 %-99 %] Physical Exam Gen: NAD, awake, sitting comfortably in bed Skin: Jaundiced-improving, Warm, dry, intact on visible surfaces Cardiac: Regular rate and rhythm, no murmurs/rubs/gallops, +S1/S2 Resp: Slightly coarse breath sounds in anterior lung mckee-improved from yesterday Abd: Soft, non-tender, non-distended Extr: No swelling/erythema, ecchymosis on extremities in various stages of healing-thigh hematoma within margins and improving. Neuro: mentation markedly improved. Pt conversational and answering questions appropriately and quickly. Spontaneous limb movement. Medications: Reviewed Labs: Reviewed Imaging: TTE Limited w/ Doppler w/ CF w/ Contrast: Result date: 07/17/2023 Left Ventricle: Left ventricular systolic function was moderately decreased with an ejection fraction of 35-40%. There was severe hypokinesis of the mid anterior wall and apex. Global longitudinal strain was abnormal. Assessment/Plan Assessment Derrick Hobson is a 68 y.o. male with limited medical records available but a PMH significant for AF, COPD, Hep C, who initially presented at OSH for epistaxis with a prolonged hospital course complicated by hypotension, new severe systolic heart failure, AHRF, electrolyte derangements, and oliguria, consistent with cardiogenic shock, shock liver, and acute kidney failure of uncertain etiology who was transferred to [facility] for initiation of dialysis. Complex hospitalization course with significant improvements in mental status and kidney function, with last HD session 07/05. Active titrationof GDMT. TTE Limited 07/16 showed wall motion abnormalities and reduced EF, will need an ischemic eval prior to DC. Will need ARAMIS given prolonged course. Plan Heart failure with improved ejection fraction (EF 20-25% --> 40%) Mixed cardiogenic/distributive shock, resolved EF improved significantly from 20% on admission to 40% on 06/27. Will need ischemic workup prior to discharge, cardiology signed off for now. -goal SBP 120-160, heart rate <100 per cardiology -Titration of GDMT -spironolactone 12.5mg -metoprolol succinate 25mg daily -Empagliflozin 10mg -Start losartan 12.5 mg (switch from 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 lisinopril), dc'd isosorbide dinitrate -cardiology consulted for TTE/ischemic workup prior to discharge, appreciate recs - Limited ECHO showed reduced EF, apical hypokinesis 07/16 - Ischemic eval prior to discharge. NM Card PET Nuclear Stress test ordered 07/17 Severe protein calorie malnutrition NG removed 07/14. All meds and food PO. - Nutrition following - Mighty shakes TID, magic cups BID Acute kidney failure, suspected ATN, improving Anasarca, resolved Now with return of renal funtion with good UOP; last HD was 07/06/2023. L IJ dilaysis line removed 07/10. -Daily BMP, Mg -Strict I/O L femoral hematoma, improving Chronic microcytic anemia Coagulopathy/DIC, thrombocytopenia, resolved Concern for DIC on admission secondary to nasal packing for epistaxis, complicated by hematoma of left medial leg. Hematoma improving daily -daily CBC Ascites, shock liver, improving Diagnosis of cirrhosis unlikely. No imaging findings to suggest this diagnosis. Ascites may have been cardiac in nature, but no paracentesis was performed and no SAAG level to determine definitively.Total protein >2.5mg throughout MICU admission and elevated BNP makes cardiac etiology more likely than cirrhosis. - Don't anticipate he will need EGD or hepatology referral on dc CHRONIC/STABLE/RESOLVED: AHRF 2/ hospital acquired pneumonia, resolved: s/p pip-tazo (end 07/13) Mood disorder: 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 citalopram 20 mg ?Neuropathic pain: 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 gabapentin 800mg TID restarted 07/11 at renally adjusted dose COPD: 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 duonebs PRN Candiduria: not treating per ID unless clinical worsening (would do fluconazole) Polysubstance use disorder: hx cocaine use, ?EtOH disorder, ?opioid use Acute toxic metabolic encephalopathy, resolved: delirium precautions Persistent Afib (with RVR, resolved): metoprolol as above CHECKLIST: VTE Prophylaxis: heparin TID Code Status: Full Discharge Plan: Will require ARAMIS given degree of weakness - once NM PET stress test is done will bestable for transfer back to [facility] vs dc to [facility] Elinor Clark MS3 07/18/2023 7:35 Attestation statement: I was present with the medical student for the history, exam, and medical decision making documented. I have verified and agree with (or, as indicated, have edited) the medicalstudent's documentation. Leonor Zamudio MD MPH Internal Medicine PGY-2 07/18/2023 12:59 Attending Attestation The resident was present with the medical student for the history, exam, and medical decision making documented. I have personally performed my own physical exam and medical decision making. I have verified and agree with (or have edited in blue underline) the combined medical student's and resident's documentation. Sunny Georges MD 07/18/2023 13:46 * Gaby Romy, WAYNE - 07/17/2023 0854 EDT Nutrition Assessment Note: Reassessment BACKGROUND DATA Subjective: Pt sleeping at time of visit. RN states that he can't order meals on his own and would benefit frommenu assist. Current Nutrition Orders: Dysphagia 2, thin liquids -- Mighty Shakes TID, Magic Cups BID Physical Findings: Digestive Systems: Last BM 07/15 Dentition: Teeth: Missing teeth per flowsheets Edema: none Skin: excoriation, pressure injury, blanchable redness Allergies on file: Clonidine Anthropometrics: Height: 182.9 cm (72) Weights Filed This Admission 06/25/23 1340 06/28/23 0900 06/29/23 1333 06/30/23 0815 Weight: 80.3 kg (177 lb) 80.3 kg (177 lb) 80.2 kg (176 lb 12.9 oz) 80.7 kg (177 lb 14.6 oz) 07/02/23 0949 07/02/23 1410 07/04/23 1011 07/06/23 0600 Weight: 81 kg (178 lb 9.2 oz) 80 kg (176 lb 5.9 oz) 80 kg (176 lb 5.9 oz) 70.2 kg (154 lb 12.2 oz) 07/06/23 0923 07/09/23 0611 07/10/23 0553 07/12/23 0548 Weight: 70.2 kg (154 lb 12.2 oz) 60.1 kg (132 lb 7.9 oz) 60 kg (132 lb 4.4 oz) 60.1 kg (132 lb 7.9 oz) Weight Change: -20.2kg since admission Pertinent Medications: Current Facility-Administered Medications Medication Route Frequency acetaminophen (TYLENOL) solution unit dose cup 495 mg oral Q6H alteplase (CATHFLO ACTIVASE) injection 2 mg intercatheter PRN aspirin chewable tablet 81 mg oral DAILY citalopram (CELEXA) tablet 20 mg oral DAILY dextrose 50 % solution 12.5 g intravenous PRN Dimethicone-Zinc Oxide 20-25 % spray,non-aerosol topical BID ferrous sulfate 75 mg/mL (JEAN-IN-ABHISHEK) liquid (15 mg/mL elemental iron) 45 mg oral BID folic acid (FOLVITE) tablet 1 mg oral DAILY gabapentin (NEURONTIN) solution 300 mg oral BID heparin injection 5,000 Units subcutaneous Q8H ipratropium-albuteroL (DUONEB) 0.5 mg-3 mg(2.5 mg base)/3 mL nebulizer solution 3 mL nebulization Q4H PRN isosorbide DInitrate (ISORDIL) tablet 10 mg oral TID lactulose (CHRONULAC) 20 gram/30 mL solution 30 mL oral Q4H PRN lidocaine (PF) 10 mg/mL (1 %) injection 2 mg intradermal PRN lidocaine (PF) 10 mg/mL (1 %) injection 5 mg intradermal PRN lidocaine 5 % (LIDODERM) patch 1 Patch transdermal DAILY metoprolol TARtrate (LOPRESSOR) tablet 12.5 mg oral BID multivitamin (NEPHROVITE) 0.8 mg tablet 1 Tablet oral QHS nystatin (MYCOSTATIN) powder topical BID pantoprazole (PROTONIX) tablet 40 mg oral DAILY ramelteon (ROZEREM) tablet 8 mg oral QHS sodium chloride 0.9 % (flush) flush 10 mL intercatheter WEEKLY sodium chloride 0.9 % (flush) flush 10 mL intercatheter PRN sodium chloride 0.9 % (flush) flush 20 mL intercatheter PRN spironolactone (ALDACTONE) tablet 12.5 mg oral DAILY thiamine (VITAMIN B1) tablet 100 mg oral DAILY white petrolatum 42 % ointment topical PRN wound dressing (TRIAD) paste topical DAILY Pertinent Labs: Lab Results Component Value Date/Time NA 137 07/17/2023 05:27 K 3.8 07/17/2023 05:27 CO2 19 (L) 07/17/2023 05:27 CL 108 07/17/2023 05:27 BUN 29 (H) 07/17/2023 05:27 CREATININE 1.89 (H) 07/17/2023 05:27 GLUCOSEPOC 124 (H) 07/13/2023 12:18 CALCIUM 8.7 07/17/2023 05:27 PHOS 4.5 07/17/2023 05:27 MG 1.6 (L) 07/17/2023 05:27 Estimated Nutrition Needs: 25-30 kcal/kg (using 70.2 kg) = 4121-8872 kcals/day 1.2 g/kg protein (using 70.2 kg) = 85 g protein/day Fluid per medical team discretion Estimated Nutrition Intake: 0-75% of all documented meals 07/11- ASSESSMENT: Pt with varied PO intake since TF was discontinued on 07/12. Sending mighty shakes TID and magic cups BID as concentrated sources of kcals and protein. RN believes now is a good time to add him to menu assist. This won't start until lunch time tomorrow. Continue to encourage PO intake. Weight has dropped -20.2kg since admission 3 weeks ago. Obtain standing scale weight if able and continue to trend. Nutrition Risk Level: High (1) MEDICAL NUTRITION THERAPY - UPDATED PLAN Oral Nutrition: - Diet per SEPTIC TANK SERVICER - Mighty Shakes TID + Magic Cups BID - Added to Menu Assist - Encourage good PO intake Coordination of Care: - Trend weight, standing scale preferred if able [address]Y [address], CD (Call PAS or use [employer] to page RD covering this unit) * Zelda Fulton MD - 07/17/2023 0835 EDT Brief Nephrology Note: Chart reviewed. Renal function continues to improve. Electrolytes normalizing. Good UOP. Nephrologywill sign off. Please call with further questions. Zelda Fulton MD 07/17/23 * Sunny Georges MD - 07/17/2023 0736 EDT Medicine Progress Note Service Date: 07/17/2023 Admit Date: 06/25/2023 13:23 Reason for Admission: 68 y.o. male admitted with a chief complaint of epistaxis and now with a principal diagnosis of mixed cardiogenic/distributive shock. 24 Hour Events: No significant events ovn Subjective/Objective Subjective Derrick was sitting up in a chair at the window. He isn't feeling as well today as yesterday due to poor sleep, and legs feel sore and tired following activity and PT. Otherwise engaging appropriately and joking with team. Objective Vital Signs Temp: [36.9 ??C (98.4 ??F)-37.2 ??C (98.9 ??F)] , Heart Rate: [81 BPM-95 BPM] , Resp: [14-16] , BP:(100-124)/(68-84) , SpO2: [98 %-99 %] Physical Exam Gen: NAD, awake, sitting comfortably in chair Skin: Jaundiced-improving, Warm, dry, intact on visible surfaces Cardiac: Regular rate and rhythm, no murmurs/rubs/gallops, +S1/S2 Resp: Slightly coarse breath sounds in anterior lung mckee-improved from yesterday Abd: Soft, non-tender, non-distended Extr: No swelling/erythema, ecchymosis on extremities in various stages of healing-thigh hematoma within margins and improving. Neuro: mentation markedly improved. Pt conversational and answering questions appropriately and quickly. Spontaneous limb movement. Medications: Reviewed Labs: Reviewed Imaging: None new Assessment/Plan Assessment Derrick Hobson is a 68 y.o. male with limited medical records available but a PMH significant for AF, COPD, Hep C, who initially presented at OSH for epistaxis with a prolonged hospital course complicated by hypotension, new severe systolic heart failure, AHRF, electrolyte derangements, and oliguria, consistent with cardiogenic shock, shock liver, and acute kidney failure of uncertain etiology who was transferred to [facility] for initiation of dialysis. Complex hospitalization course with significant improvements in mental status and kidney function, with last HD session 07/05. Will need ARAMIS given prolonged course as well as ischemic eval and titration of GDMT as he gets closer to DC. Plan #Severe systolic heart failure (EF 20-25% --> 40%) #Mixed cardiogenic/distributive shock, resolved EF improved significantly from 20% on admission to 40% on 06/27. Will need ischemic workup prior to discharge, cardiology signed off for now. -goal SBP 120-160, heart rate <100 per cardiology -continue isosorbide dinitrate 10 mg TID -Titration of GDMT -spironolactone 12.5mg started 07/15 -metoprolol tartrate BID - will switch to succinate 25 mg daily 07/17 given able to swallow pills now -Empagliflozin 10mg started 07/16 -Start losartan (switch from 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 lisinopril) 07/17 -cardiology consulted for TTE/ischemic workup prior to discharge, appreciate recs - order limited ECHO for EF prior to discharge - Ischemic eval prior to discharge, requested with improved mental status 07/16 #Acute toxic metabolic encephalopathy, resolved Concern for hypoactive delirium vs anoxic/hypoglycemic brain injury vs gabapentin/opiate withdrawalvs hepatic encephalopathy. MRI without evidence of anoxic or hypoglycemic brain injury. -discontinued lactulose PRN -delirium precautions #Hypernatremia, resolved #Hypokalemia, resolved -replete K as needed -appreciate nephrology recommendations #Critical Illness Myopathy #Malnutrition NG removed 07/14. All meds and food PO -dysphagia II diet per [employer] TANK SERVICER #Acute kidney failure, suspected ATN, improving #Anasarca, resolved #Hyperphosphatemia, resolved Now with return of renal funtion with good UOP; last HD was 07/06/2023. L IJ dilaysis line removed 07/10. -Daily BMP, Phos, mag -Strict I/O #Persistent Afib (with RVR, resolved) - metop as above - Hold AC for femoral hematoma - Goal HR < 100 #L femoral hematoma, improving #Chronic microcytic anemia #Coagulopathy/DIC, thrombocytopenia, resolved Concern for DIC on admission secondary to nasal packing for epistaxis, complicated by hematoma of left medial leg. Hematoma improving daily -daily CBC, INR stable #Ascites, shock liver, improving Diagnosis of cirrhosis unlikely. No imaging findings to suggest this diagnosis. Ascites may have been cardiac in nature, but no paracentesis was performed and no SAAG level to determine definitively.Total protein >2.5mg throughout MICU admission and elevated BNP makes cardiac etiology more likely than cirrhosis. - Daily CMP - Don't anticipate he will need EGD or hepatology referral on dc CHRONIC/STABLE/RESOLVED: #AHRF 2/2 hospital acquired pneumonia, resolved: s/p pip-tazo (end 07/13) #Mood disorder: 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 citalopram #?Neuropathic pain: Hold 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 Cyclobenzaprine 10mg daily with liver/kidney injury, Pt taking Gabapentin 800mg TID 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 which was restarted 07/11 at renally adjusted dosing as above. No recent use of hydrocodone, ok to dc at discharge #COPD: 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 duonebs PRN, maintain SpO2 > 88% #Candiduria: not treating per ID unless clinical worsening (would do fluconazole) #Polysubstance use disorder: hx cocaine use, ?EtOH disorder, ?opioid use CHECKLIST: VTE Prophylaxis: Heparin 5K units q8h Code Status: Full Discharge Plan: Will require ARAMIS given degree of weakness, requires ischemic eval prior to discharge Elinor Clark MS3 07/17/2023 10:15 Attestation statement: I was present with the medical student for the history, exam, and medical decision making documented. I have verified and agree with (or, as indicated, have edited) the medicalstudent's documentation. Leonor Zamudio MD MPH Internal Medicine PGY-2 07/17/2023 11:01 Attending Attestation The resident was present with the medical student for the history, exam, and medical decision making documented. I have personally performed my own physical exam and medical decision making. I have verified and agree with (or have edited in underline) the combined medical student's and resident's documentation. Sunny Georges MD 07/17/2023 14:50 * Paulina Wallace, PT - 07/17/2023 0793 EDT [facility] Therapy Acute Therapies [facility] Physical Therapy Encounter Note Date of Service: 07/17/2023 Subjective/Objective Subjective How long have I been here? Surprised by answer Objective Intervention completed today: Time: 8:30 Total treatment time: 28 minutes. Timed code treatment minutes: 28 basket hand braider(s) present to assist: Elinor Ji Pt received up in bed, agree to try to sit up. Therapeutic Activity: During all functional activities noted above this patient was provided with manual assist and education via combination of verbal and demonstration. These were provided to give movement techniques to: optimize ability for patient to participate in and perform task and optimize patient safety Prior to mobility, brief LE exam with ROM functional, but decreased strength noted. He actively moves bilateral LE at ankle, knee and hip while laying in bed. Able to initiate movements in sitting but unable to fully extend knee in sitting or fully ankle DF against gravity. Bed mobility: Supine>sit with HOB 30 degrees to pt's RIGHT with minimal contact assist with cues for technique Sitting balance: close supervision from >5 minutes at edge of bed Sit<>stand performed x 2 with minimal contact assist of 2 with full stand completed with use of isac steady. Trial of steps, unsuccessful while standing on isac steady. Transfer to chair with isac steady At end of session patient in: chair, sitting on cushion, chair alarm in place, call larson in reach, heels floated Oriented to self, able to follow instructions during session, not oriented to date and need frequent re-direction about being in the hospital Patient/Family Education: Topic: Balance Bed mobility Positioning Role of therapy Safety transfers Learner: patient Method: verbal and demonstration Barriers to Learning: cognitive deficits Outcome: requires assist and needs practice Team Communication: Discussed current level of mobility and recommendations with nursing for assistance with mobility and positioning outside of PT. Nursing present to observe mobility during PT session Assessment/Plan Assessment Gains demonstrated today by decreased assist with mobility and progression with standing and transfers. Improved ability to follow directions but still with decreased cognition. Patient continues with weakness, balance and cognitive deficits and should be assisted with all mobility attempts. Given skin issues, should be repositioned frequently with assistance. Continue to recommend ARAMIS post hospitalization at this time. Plan Continue per plan of care Recommended Discharge Destination: Sub-acute rehabilitation Recommended Discharge Services: Physical therapy at rehabilitation facility Recommended Equipment Needs: To be determined by next care provider Other recommendations: No other consults recommended at this time Paulina Wallace, MICHAEL 07/17/2023 7:25 * Sunny Georges MD - 07/16/2023 0757 EDT Medicine Progress Note Service Date: 07/16/2023 Admit Date: 06/25/2023 13:23 Reason for Admission: 68 y.o. male admitted with a chief complaint of epistaxis and now with a principal diagnosis of mixed cardiogenic/distributive shock. 24 Hour Events: NG tube and alston catheter removed. Spontaneous urine output ovn. Subjective/Objective Subjective Derrick was sitting up, watching tv, and pigging out on breakfast when we visited this morning. He said he was feeling good and denied pain or shortness of breath. Was going to reach out to his sister today. Objective Vital Signs Temp: [36.6 ??C (97.8 ??F)-37.4 ??C (99.3 ??F)] , Heart Rate: [86 BPM-105 BPM] , Resp: [12-18] , BP: (93-133)/(64-91) , SpO2: [96 %-100 %] Physical Exam Gen: NAD, awake, sitting comfortably in bed Skin: Jaundiced-improving, Warm, dry, intact on visible surfaces Cardiac: Regular rate and rhythm, no murmurs/rubs/gallops, +S1/S2 Resp: Slightly coarse breath sounds in anterior lung mckee-improved from yesterday Abd: Soft, non-tender, non-distended, no visible lesions or scars, no hepatosplenomegaly Extr: No swelling/erythema, ecchymosis on extremities in various stages of healing-thigh hematoma within margins and improving. Neuro: mentation markedly improved. Pt conversational and answering questions appropriately. Spontaneous limb movement. Medications: Reviewed Labs: Reviewed Imaging: None new Assessment/Plan Assessment Derrick Hobson is a 68 y.o. male with limited medical records available but a PMH significant for AF, COPD, Hep C, who initially presented at OSH for epistaxis with a prolonged hospital course complicated by hypotension, new severe systolic heart failure, AHRF, electrolyte derangements, and oliguria, consistent with cardiogenic shock, shock liver, and acute kidney failure of uncertain etiology who was transferred to [facility] for initiation of dialysis. Complex hospitalization course with significant improvements in mental status and kidney function, with last HD session 07/05. Will need ARAMIS given prolonged course as well as ischemic eval and titration of GDMT as he gets closer to DC. Plan #Acute toxic metabolic encephalopathy, improving #Concern for anoxic brain injury Concern for hypoactive delirium vs anoxic/hypoglycemic brain injury vs gabapentin/opiate withdrawalvs hepatic encephalopathy. MRI without evidence of anoxic or hypoglycemic brain injury. -lactulose PRN (titrate to 2-3 BM daily) for hepatic encephalopathy - would discontinue. Patient has not been taking and has no evidence of cirrhosis -delirium precautions #Severe systolic heart failure (EF 20-25% --> 40%) #Mixed cardiogenic/distributive shock, resolved EF improved significantly from 20% on admission to 40% on 06/27. Will need ischemic workup prior to discharge, cardiology signed off for now. -goal SBP 120-160, heart rate <100 per cardiology -continue isosorbide dinitrate 10 mg TID -started spironolactone 12.5 mg for GDMT -cardiology consulted for TTE/ischemic workup prior to discharge, appreciate recs - order limited ECHO for EF - goal to start ARB/ACEi when kidney function improved - Goodwin check for SGLT-2: empagliflozin 10 mg is $4.60/month - switch to 25mg metop succinate from metop tartrate when no longer needs to be crushed to be given - Cardiology will do an ischemic eval prior to discharge #Hypernatremia, resolved #Hypokalemia, resolved -replete K as needed -appreciate nephrology recommendations #Critical Illness Myopathy #Malnutrition -NG removed 07/14. All meds and food PO -dysphagia II diet per [employer] T[employer] SERVICER #Acute kidney failure, suspected ATN, improving #Anasarca, resolved #Hyperphosphatemia, resolved Now with return of renal funtion with good UOP for multiple days; last HD was 07/06/2023. L IJ dilaysis line removed 07/10. -Daily BMP, Phos, mag -Strict I/O #Persistent Afib (with RVR, resolved) - metop as above - Hold AC for femoral hematoma - Goal HR < 100 #L femoral hematoma, improving #Chronic microcytic anemia #Coagulopathy/DIC, thrombocytopenia, resolved Concern for DIC on admission secondary to nasal packing for epistaxis, complicated by hematoma of left medial leg. Hematoma improving daily -daily CBC, INR -repeat CT angio if hematoma acutely worsened or hemodynamically unstable #Decompensated HCV (s/p treatment) cirrhosis (ascites, jaundice) diagnosis of cirrhosis is uncertain. No imaging findings to suggest this diagnosis. Ascites may have been cardiac in nature, but no paracentesis was ever performed so no way to determine definitively #Elevated LFTs, improving Current picture c/w resolving shock liver. High bili may be in part due to hemolysis of blood in hematoma. - Daily CMP - Will require EGD outpatient - Referral to hepatology clinic OP CHRONIC/STABLE/RESOLVED: #AHRF 2/2 hospital acquired pneumonia, resolved: s/p pip-tazo (end 07/13) #Mood disorder: 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 citalopram #?Neuropathic pain: Hold 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 Cyclobenzaprine 10mg daily with liver/kidney injury, Pt taking Gabapentin 800mg TID 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 which was restarted 07/11 at renally adjusted dosing as above #COPD: 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 duonebs PRN, maintain SpO2 > 88% #Candiduria: not treating per ID unless clinical worsening (would do fluconazole) #Polysubstance use disorder: hx cocaine use, ?EtOH disorder, ?opioid use CHECKLIST: VTE Prophylaxis: Heparin 5K units q8h restarted Code Status: Full Discharge Plan: Will likely require ARAMIS given degree of weakness, requires ischemic eval prior to discharge Elinor Clark MS3 Attestation statement: I was present with the medical student for the history, exam, and medical decision making documented. I have verified and agree with (or, as indicated, have edited) the medicalstudent's documentation. Leonor Zamudio MD MPH Internal Medicine PGY-2 07/16/2023 15:20 Attending Attestation The resident was present with the medical student for the history, exam, and medical decision making documented. I have personally performed my own physical exam and medical decision making. I have verified and agree with (or have edited in blue underline) the combined medical student's and resident's documentation. Sunny Georges MD 07/16/2023 16:14 * Araseli Finnegan MD - 07/15/2023 1402 EDT Medicine Progress Note Service Date: 07/15/2023 Admit Date: 06/25/2023 13:23 Reason for Admission: 68 y.o. male admitted with a chief complaint of epistaxis and now with a principal diagnosis of mixed cardiogenic/distributive shock. 24 Hour Events: Pt in mitt on R hand and distractible from pulling NG tube. 1:[address] Subjective/Objective Subjective Pt in mitt on R hand with 1:1 sitter at bedside. He was tired but arousable to voice. Stated he wasin no pain. Review of Systems Unable to obtain due to patient mental status Objective Vital Signs Temp: [35.8 ??C (96.5 ??F)-36.7 ??C (98 ??F)] , Heart Rate: [83 BPM-99 BPM] , Resp: [18-19] , BP: (86-133)/(56-79) , SpO2: [97 %-100 %] Physical Exam Gen: NAD, awake, Rt mitt and NG tube in place Skin: Jaundiced-improving, Warm, dry, intact on visible surfaces Cardiac: Regular rate and rhythm, no murmurs/rubs/gallops, +S1/S2 Resp: Slightly coarse breath sounds in anterior lung mckee-improved from yesterday Abd: Soft, non-tender, non-distended, no visible lesions or scars, no hepatosplenomegaly Extr: No swelling/erythema, ecchymosis on extremities in various stages of healing-thigh hematoma within margins and improving. Neuro: mentation markedly improved. Pt answering questions appropriately. Spontaneous limb movement. Medications: Reviewed Labs: Reviewed Imaging: None new Assessment/Plan Assessment Derrick Hobson is a 68 y.o. male with limited medical records available but a PMH significant for AF, COPD, Hep C, who initially presented at OSH for epistaxis with a prolonged hospital course complicated by hypotension, new severe systolic heart failure, AHRF, electrolyte derangements, and oliguria, consistent with cardiogenic shock, shock liver, and acute kidney failure of uncertain etiology who was transferred to [facility] for initiation of dialysis. PT has varying degree of hypokalemia (repleted as needed),and hypernatremia since transfer. Sodium improving with D5W and AMS improving with improvement of electrolytes and pain mgmt, but currently with 1:1 sitter and soft mitt restraints. Pt was on tube feeds which were stopped 07/12 to encourage PO intake (SE[employer] TANK SERVICER evaluated and cleared for dysphagia stage 2 thin liquid diet). Plan to remove NG tube 07/14. Pt's ability to produce urine improved during hospitalization with improving CR (currently 2.5). Last HD session 07/05. Left IJ temporary dialysis catheter DCd on 07/10. Pt will need ARAMIS given prolonged hospital course, and titration of GDMT as he gets closer to DC. Plan #Hypernatremia-resolved #Hypokalemia, resolved Na 137 this am -continue free water flushes 300ml Q6H -Q24h lytes check -replete K as needed -appreciate nephrology recommendations #Critical Illness Myopathy #Malnutrition -stop TF 07/12 for now to encourage PO intake -all medications as PO -dysphagia II diet per SE[employer] TANK SERVICER -remove NG today #Acute Toxic/Metabolic Encephalopathy, improving #Concern for anoxic brain injury Concern for hypoactive delirium vs anoxic/hypoglycemic brain injury vs gabapentin/opiate withdrawalvs hepatic encephalopathy. MRI without evidence of anoxic or hypoglycemic brain injury. -Continue gabapentin 300 mg BID -lactulose PRN (titrate to 2-3 BM daily) for hepatic encephalopathy -D/C mitts -delirium precautions -ramelteon 8 mg at bedtime #Acute kidney failure, suspected ATN - stable #Anasarca, resolved #Hyperphosphatemia-stable Now with return of renal funtion with good UOP for multiple days; last HD was 07/06/2023. L IJ dilaysis line removed 07/10. -Daily BMP, Phos, mag -Continue to observe and consider sevelamer if phos >5.5mg -Strict I/O #Severe systolic heart failure (EF 20-25% --> 40%) #Mixed Cardiogenic/Distributive Shock (Resolved) EF improved significantly from 20% on admission to 40% on 06/27. Will need ischemic workup prior to discharge, cardiology signed off for now. -goal SBP 120-160, heart rate <100 per cardiology -continue isosorbide dinitrate 10 mg TID -D/C hydralazine 10 mg p.o. TID -start MRA for GDMT prior to discharge (continue to hold off on starting this for now pending clinical stability) -reengage cardiology prior to discharge for TTE/ischemic workup -continue metoprolol tartrate 12.5 mg PO BID-transition to 25mg metop succinate when no longer needs to be crushed to be given #Persistent Afib (with RVR, resolved) - metop as above - Hold AC for femoral hematoma - Goal HR < 100 #Leukocytosis, resolved #Acute hypoxic respiratory failure, resolved #Hospital acquired pneumonia, resolved -last dose piperacillin-tazobactam 4.5 g Q84 07/13 #L femoral hematoma, improving #Microcytic anemia, Thrombocytopenia #Coagulopathy/DIC, resolved Concern for DIC on admission secondary to nasal packing for epistaxis, complicated by hematoma of left medial leg. Hematoma improving daily -daily CBC, PT/PTT -repeat CT angio if hematoma acutely worsened or hemodynamically unstable #Candiduria: not treating per ID unless clinical worsening in which case will treat with fluconazole #COPD: - 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 duonebs PRN - Maintain SpO2 > 88% #Decompensated Cirrhosis (ascites, jaundice) #Elevated Liver Chemistries 2/2 Shock Liver #Hx Hepatitis C Virus s/p treatment Unclear if pt has hx of liver injury. Current picture c/w resolving shock liver, though on admission AST was significant greater than ALT. Hyperbilirubinemia may be in part due to hemolysis of blood in hematoma. - Daily CMP - Will require EGD outpatient - Referral to hepatology clinic OP #Polysubstance Use Disorder - known hx cocaine use - ? EtOH use disorder - unclear if hx opioid use CHRONIC/STABLE/RESOLVED: #Mood disorder: 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 citalopram #Facial twitches: resolved # ?Neuropathic pain: Hold 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 Cyclobenzaprine 10mg daily with liver/kidney injury, Pt taking Gabapentin 800mg TID 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 which was restarted 07/11 at renally adjusted dosing as above # Intermittent hypoglycemia: resolved CHECKLIST: Admission status: inpatient d/t renal impairment, weakness, and resolving shock VTE Prophylaxis: Heparin 5K units q8h restarted Consults: n/a Code Status: Full Diet: Tube feeds dc'd 07/12, dysphagia 2 diet per SEPTIC TANK SERVICER and encourage PO intake Discharge Plan: Will likely require physical rehab given degree of weakness. Goal to achieve full PO nutrition for discharge Snehal Coffey MD PGY-1 #[id number] Attestation: Pt seen and examined; I have reviewed Dr. Coffey's note and agree with her findings, A and P as outlined above, with my additions in blue. I have personally reviewed the laboratory and radiology results. I have personally spoken with housestaff, nursing. Dr. Sunny Georges to assume care on 07/16/2023. DOS 07/15/2023. Araseli Finnegan MD, MPH * Araseli Finnegan MD - 07/14/2023 0712 EDT Medicine Progress Note Service Date: 07/14/2023 Admit Date: 06/25/2023 13:23 Reason for Admission: 68 y.o. male admitted with a chief complaint of epistaxis and now with a principal diagnosis of mixed cardiogenic/distributive shock. 24 Hour Events: Restless, but less agitated ovn. Pt in mitt on R hand and distractible from pullingNG tube. 1:[address] Subjective/Objective Subjective Pt in mitt on R hand with 1:1 sitter at bedside. He was interactive and responsive to questions, states he 'wants a shower' and is requesting juice and coke. Is not interested in eating food this morning. Review of Systems Unable to obtain due to patient mental status Objective Vital Signs Temp: [36 ??C (96.8 ??F)-36.8 ??C (98.3 ??F)] , Heart Rate: [80 BPM-98 BPM] , Resp: [18] , BP: (105-117)/(69-78) , SpO2: [97 %-100 %] Physical Exam Gen: NAD, awake, Rt mitt and NG tube in place Skin: Jaundiced-improving, Warm, dry, intact on visible surfaces Cardiac: Regular rate and rhythm, no murmurs/rubs/gallops, +S1/S2 Resp: Slightly coarse breath sounds in anterior lung mckee-improved from yesterday Abd: Soft, non-tender, non-distended, no visible lesions or scars, no hepatosplenomegaly Extr: No swelling/erythema, ecchymosis on extremities in various stages of healing-thigh hematoma within margins and improving. Neuro: unable to assess orientation. Spontaneous limb movement. Medications: Reviewed Labs: Reviewed Imaging: None new Assessment/Plan Assessment Derrick Hobson is a 68 y.o. male with limited medical records available but a PMH significant for AF, COPD, Hep C, who initially presented at OSH for epistaxis with a prolonged hospital course complicated by hypotension, new severe systolic heart failure, AHRF, electrolyte derangements, and oliguria, consistent with cardiogenic shock, shock liver, and acute kidney failure of uncertain etiology who was transferred to [facility] for initiation of dialysis. PT has varying degree of hypokalemia (repleted as needed),and hypernatremia since transfer. Sodium improving with D5W and AMS improving with improvement of electrolytes and pain mgmt, but currently with 1:1 sitter and soft mitt restraints. Pt was on tube feeds which were stopped 07/12 to encourage PO intake ([employer] TANK SERVICER evaluated and cleared for dysphagia stage 2 thin liquid diet). Plan to remove NG tube in coming days after establishing ability to maintain caloric needs with PO intake. Pt's ability to produce urine improved during hospitalization with improving CR (currently 2.5). Last HD session 07/05. Left IJ temporary dialysis catheter DCd on 07/10. Pt will need ARAMIS given prolonged hospital course, and titration of GDMT as he gets closer to DC. Plan #Hypernatremia-improving #Hypokalemia, resolved Na improved to 143 this am from 148 yesterday. -continue free water flushes 300ml Q6H -D5W at 100cc/hr as needed -goal Na 140 -appreciate nephrology recommendations #Critical Illness Myopathy #Malnutrition -stop TF 07/12 for now to encourage PO intake -all medications as PO -dysphagia II diet per SE[employer] TANK SERVICER -remove NG once taking exclusively PO #Acute Toxic/Metabolic Encephalopathy, improving #Concern for anoxic brain injury Concern for hypoactive delirium vs anoxic/hypoglycemic brain injury vs gabapentin/opiate withdrawalvs hepatic encephalopathy. MRI without evidence of anoxic or hypoglycemic brain injury. -Continue gabapentin 300 mg BID -Dc'd rifaximin 550 mg BID 07/13, lactulose PRN (titrate to 2-3 BM daily) for hepatic encephalopathy -continue one-to-one sitter for now -continue mitts for now, consider DC this afternoon if mental status continues to improve -delirium precautions -ramelteon 8 mg at bedtime -continue to engage family in goals of care discussions #Acute kidney failure, suspected ATN - resolving #Anasarca, resolved #Hyperphosphatemia Now with return of renal funtion with good UOP for multiple days; last HD was 07/06/2023. L IJ dilaysis line removed 07/10. -Daily BMP, Phos, mag -phosphorus trending up today to 5.1mg. Continue to observe and consider sevelamer if >5.5mg -Strict I/O #Severe systolic heart failure (EF 20-25% --> 40%) #Mixed Cardiogenic/Distributive Shock (Resolved) EF improved significantly from 20% on admission to 40% on 06/27. Will need ischemic workup prior to discharge, cardiology signed off for now. -goal SBP 120-160, heart rate <100 per cardiology -continue isosorbide dinitrate 10 mg TID, hydralazine 10 mg p.o. TID -start MRA for GDMT prior to discharge (continue to hold off on starting this for now pending clinical stability) -reengage cardiology prior to discharge for TTE/ischemic workup -continue metoprolol tartrate 12.5 mg PO BID per NG #Persistent Afib (with RVR, resolved) - Telemetry - metop as above - Hold AC for femoral hematoma - Goal HR < 140 #Leukocytosis, resolved #Acute hypoxic respiratory failure, resolved #Hospital acquired pneumonia, resolved -last dose piperacillin-tazobactam 4.5 g Q84 today at 8AM for HAP #L femoral hematoma, stable #Microcytic anemia, Thrombocytopenia #Coagulopathy/DIC, resolved Concern for DIC on admission secondary to nasal packing for epistaxis, complicated by hematoma of left medial leg. Hematoma improving daily -daily CBC, PT/PTT -repeat CT angio if hematoma acutely worsened or hemodynamically unstable #Candiduria: not treating per ID unless clinical worsening in which case will treat with fluconazole #COPD: - 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 duonebs PRN - Maintain SpO2 > 88% #Decompensated Cirrhosis (ascites, jaundice) #Elevated Liver Chemistries 2/2 Shock Liver #Hx Hepatitis C Virus s/p treatment Unclear if pt has hx of liver injury. Current picture c/w resolving shock liver, though on admission AST was significant greater than ALT. Hyperbilirubinemia may be in part due to hemolysis of blood in hematoma. - Daily CMP - Will require EGD outpatient - Referral to hepatology clinic OP #Polysubstance Use Disorder - known hx cocaine use - ? EtOH use disorder - unclear if hx opioid use CHRONIC/STABLE/RESOLVED: #Mood disorder: 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 citalopram #Facial twitches: resolved # ?Neuropathic pain: Hold 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 Cyclobenzaprine 10mg daily with liver/kidney injury, Pt taking Gabapentin 800mg TID 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 which was restarted 07/11 at renally adjusted dosing as above # Intermittent hypoglycemia: resolved CHECKLIST: Admission status: inpatient d/t renal impairment, weakness, and resolving shock VTE Prophylaxis: Heparin 5K units q8h restarted Consults: n/a Code Status: Full Diet: Tube feeds dc'd 07/12, dysphagia 2 diet per SEPTIC TANK SERVICER and encourage PO intake Discharge Plan: Will likely require physical rehab given degree of weakness. Goal to achieve full PO nutrition for discharge Elinor Clark, MS3 07/14/23 Snehal Coffey MD PGY-1 #[id number] Attestation: Pt seen and examined; I have reviewed Dr. Coffey and MS Clark's note and agree with their findings, A and P as outlined above, with my additions in blue. I have personally reviewed the laboratory and radiology results. I have personally spoken with housestaff, nursing, Nephrology. DOS 07/14/2023. Araseli Finnegan MD, MPH * Madonna Husain, RD - 07/13/2023 1600 EDT Nutrition Assessment Note: Reassessment BACKGROUND DATA Clinical Course Since Last RD Visit: 68 y.o. male with limited medical records available but a PMH significant for AF, COPD, Hep C, whoinitially presented for epistaxis with a prolonged hospital course complicated by hypotension, new severe systolic heart failure, AHRF, electrolyte derangements, and oliguria, consistent with cardiogenic shock, shock liver, and acute kidney failure of uncertain etiology [facility] per Elinor Clark, MS3 07/13/23. Last HD was 07/06/23. Subjective: Patient sleeping with sitter with bedside. Patient roused briefly to voice, however was unable to respond to questions regarding food preferences. RN reports that patient was able eat small amounts of ice cream, mashed potatoes, jello and applesauce yesterday. Standard dysphagia lunch tray with supplements ordered for patient. RN to call in dinner later. Current Nutrition Orders: Diet-Dysphagia 2 with thin liquids; Kcal counts 07/12- Prosource 60 ml 2 times daily via NG tube Free water 300 ml every 6 hours via NG tube Delegate diet ordering to RD Nutrition Focused Physical Exam Incomplete; patient unable to consent/participate today Physical Findings: Digestive Systems: Last BM 07/13/23 loose; + NG tube Dentition: Teeth: Missing teeth per flowsheets Edema: none documented Skin: excoriation; MASD/IAD; blanchable redness; pressure injury sacrum/coccyx Allergies on file: Clonidine Anthropometrics: Height: 182.9 cm (72) Wt Readings from Last 6 Encounters: 07/12/23 60.1 kg (132 lb 7.9 oz) Weights Filed This Admission 06/25/23 1340 06/28/23 0900 06/29/23 1333 06/30/23 0815 Weight: 80.3 kg (177 lb) 80.3 kg (177 lb) 80.2 kg (176 lb 12.9 oz) 80.7 kg (177 lb 14.6 oz) 07/02/23 0949 07/02/23 1410 07/04/23 1011 07/06/23 0600 Weight: 81 kg (178 lb 9.2 oz) 80 kg (176 lb 5.9 oz) 80 kg (176 lb 5.9 oz) 70.2 kg (154 lb 12.2 oz) 07/06/23 0923 07/09/23 0611 07/10/23 0553 07/12/23 0548 Weight: 70.2 kg (154 lb 12.2 oz) 60.1 kg (132 lb 7.9 oz) 60 kg (132 lb 4.4 oz) 60.1 kg (132 lb 7.9 oz) BMI: 17.97 Weight Change: downward weight trend this admit, however questions if partially related to fluid and bed scale wts Pertinent Medications: Current Facility-Administered Medications Medication Route Frequency acetaminophen (TYLENOL) solution unit dose cup 495 mg per ng tube Q6H alteplase (CATHFLO ACTIVASE) injection 2 mg intercatheter PRN amino acids-protein hydrolysate (PRO SOURCE NOCARB) packet 60 mL feeding tube BID aspirin chewable tablet 81 mg per ng tube DAILY citalopram (CELEXA) tablet 20 mg per ng tube DAILY dextrose 5 % (D5W) infusion intravenous CONTINUOUS dextrose 50 % solution 12.5 g intravenous PRN Dimethicone-Zinc Oxide 20-25 % spray,non-aerosol topical BID ferrous sulfate 75 mg/mL (JEAN-IN-ABHISHEK) liquid (15 mg/mL elemental iron) 45 mg per ng tube BID folic acid (FOLVITE) tablet 1 mg per ng tube DAILY Free Water (bolus dose) 300 mL per ng tube Q6H gabapentin (NEURONTIN) solution 300 mg per ng tube BID hydrALAZINE (APRESOLINE) tablet 10 mg per ng tube TID ipratropium-albuteroL (DUONEB) 0.5 mg-3 mg(2.5 mg base)/3 mL nebulizer solution 3 mL nebulization Q4H PRN isosorbide DInitrate (ISORDIL) tablet 10 mg per ng tube TID lactulose (CHRONULAC) 20 gram/30 mL solution 30 mL per ng tube Q4H PRN lidocaine (PF) 10 mg/mL (1 %) injection 2 mg intradermal PRN lidocaine (PF) 10 mg/mL (1 %) injection 5 mg intradermal PRN lidocaine 5 % (LIDODERM) patch 1 Patch transdermal DAILY metoprolol TARtrate (LOPRESSOR) tablet 12.5 mg per ng tube BID multivitamin (NEPHROVITE) 0.8 mg tablet 1 Tablet per ng tube QHS nystatin (MYCOSTATIN) powder topical BID pantoprazole (PROTONIX) injection 40 mg intravenous DAILY papain-alpha amylase-cellulase (CLOG ZAPPER) 2-5 mL feeding tube PRN piperacillin-tazobactam 4.5 g in sodium chloride (NS MBP) 100 mL IVPB intravenous Q8H ramelteon (ROZEREM) tablet 8 mg per ng tube QHS rifAXIMin (XIFAXAN) tablet 550 mg per ng tube BID sodium chloride 0.9 % (flush) flush 10 mL intercatheter WEEKLY sodium chloride 0.9 % (flush) flush 10 mL intercatheter PRN sodium chloride 0.9 % (flush) flush 20 mL intercatheter PRN thiamine (VITAMIN B1) tablet 100 mg per ng tube DAILY white petrolatum 42 % ointment topical PRN wound dressing (TRIAD) paste topical DAILY Pertinent Labs: Lab Results Component Value Date/Time NA 148 (H) 07/13/2023 06:42 K 4.4 07/13/2023 06:42 CO2 17 (L) 07/13/2023 06:42 CL 117 (H) 07/13/2023 06:42 BUN 69 (H) 07/13/2023 06:42 CREATININE 2.71 (H) 07/13/2023 06:42 GLUCOSEPOC 124 (H) 07/13/2023 12:18 CALCIUM 9.2 07/13/2023 06:42 PHOS 4.4 07/13/2023 06:42 MG 1.9 07/13/2023 06:42 Lab Results Component Value Date/Time HGB 7.8 (L) 07/13/2023 06:40 HCT 25.4 (L) 07/13/2023 06:40 MCV 87 07/13/2023 06:40 Estimated Nutrition Needs: 25-30 kcal/kg (using 70.2 kg) = 4785-9187 kcals/day 1.2 g/kg protein (using 70.2 kg) = 85 g protein/day Fluid per medical team discretion Estimated Nutrition Intake: TF dc'd 07/12 PO intake establishing ASSESSMENT: Patient starting to take small amounts of pureed food items. Tube feedings held starting today per medical team discretion. Will send mighty shakes and magic cups with trays as potential source of supplemental calories/protein. Will d/c prosource. Kcal counts initiated. Hypernatremia noted. Continue free water and additional IV fluids as needed per medical/renal team. Patient not yet a good candidate for menu assist, also not sure if will accept full house select trays at this time. Nursing to assist with calling down meal trays for now and attempt to get food preferences when patient more alert. Nutrition Risk Level: High (1) MEDICAL NUTRITION THERAPY - UPDATED PLAN -RD with order writing privileges and will d/c prosource -Nutrition to send mighty shakes with all trays, magic cups with lunch and dinner -Monitor lytes, mag, phos -Defer to medical team to adjust free water pending fluid/electrolyte status -Calorie count in progress -Monitor diet tolerance, weight trends, stool pattern and skin -RD following plan Madonna Husain RD, CD (Call PAS or use [employer] to page RD covering this unit) * Sandeep Breen MD - 07/13/2023 8595 EDT NEPHROLOGY CONSULT PROGRESS NOTE Admit Date: 06/25/2023 Length of hospital stay: 18 Date of Service: 07/13/23 Attending Physician: Araseli Finnegan MD Reason for Consult: Acute kidney injury ASSESSMENT: Acute kidney injury: ATN in the setting of shock, contrast associated JOS (CT angio on 06/30). Has underlying hep C, COPD, HFrEF, alcohol use disorder and cocaine use disorder. JOS improving - serum Cr 2.92mg% on 07/12/2023. Received CRRT while in the MICU-last received intermittent hemodialysis on 07/05. Pt non- oliguric. No indication for dialysis and hemodialysis line DCd. Will continue to monitor for further renal recovery. Unsure if he has baseline CKD (last available serum Cr of 0.7mg% in 2014). 2. HFrEF (EF 40% on 06/27). No clinical evidence of pulmonary edema at this time. 3. Hepatic cirrhosis: h/o HepC s/p antiviral therapy. Has hyperbilirubinemia (total beto 10.0mg% on 07/06). AST, ALT improving. Pt on rifaximin. 4. Hypertension: reasonably well controlled on current antihypertensive regimen. Currently on hydralazine 10mg NG TID, metoprolol 12.5mg NG BID. 5. Hypernatremia: Had improved after D5 administration and restarting tube feeds-recurred today. Restarted on D5W. Likely due to decreased NG intake, post ATN diuresis and diarrhea from lactulose intake. I RECOMMENDATIONS: Ok to continue D5W 100cc/h. Recommend rechecking Na 12 hrs. If hypernatremia worsens, OK to increase D5W rate to 150cc/h and to recheck. Goal is to get serum Na to 140meq/l in 24 hrs. Also agree with free water NG tube 300ml q6hrs. recommend sodium bicarbonate 1300mg NG X2 today. Agree with holding his diuretics at this time. OK to DC sevelamer as hyperphosphatemia likely to improve further with JOS improvement. 24-hour events/Subjective: Resting comfortably. More awake today. On NG tube feeds. Currently on D5W @100cc/h. Denies chest pain/shortness of breath. Left IJ temporary dialysis catheter DCd on 07/10 -appreciate medicine team help with DC of dialysis line. Objective: Physical Examination: General Appearance:: awake, no distress, HEENT: no pallor, icterus+. Neck: supple. Resp: clear to auscultation bilaterally. CV: The heart rate is regular with a normal S1 S2, no murmur, rub, or gallop. GI: abd soft, non-tender. BS+ Neuro: no focal neurological deficit. Extremities: No lower extremity edema. Rt UE PICC line +. BP 105/69 (BP Cuff Location: Left arm, BP Patient Position: Semi fowlers) Pulse 99 Temp 36.8 ??C (98.3 ??F) (Oral) Resp 18 Ht 182.9 cm (72) Wt 60.1 kg (132 lb 7.9 oz) SpO2 98% BMI 17.97 kg/m?? Last 24 hours:07/11 0700 - 07/12 0659 In: 200 [P.O.:120] Out: 3100 [Urine:3100] Current 24 hours: Weights: Wt Readings from Last 5 Encounters: 07/12/23 60.1 kg (132 lb 7.9 oz) ROS: 10 point review of system is as above, otherwise negative. Medications: Current Facility-Administered Medications Medication Route Frequency acetaminophen (TYLENOL) solution unit dose cup 495 mg per ng tube Q6H alteplase (CATHFLO ACTIVASE) injection 2 mg intercatheter PRN amino acids-protein hydrolysate (PRO SOURCE NOCARB) packet 60 mL feeding tube BID aspirin chewable tablet 81 mg per ng tube DAILY citalopram (CELEXA) tablet 20 mg per ng tube DAILY dextrose 5 % (D5W) infusion intravenous CONTINUOUS dextrose 50 % solution 12.5 g intravenous PRN Dimethicone-Zinc Oxide 20-25 % spray,non-aerosol topical BID ferrous sulfate 75 mg/mL (JEAN-IN-ABHISHEK) liquid (15 mg/mL elemental iron) 45 mg per ng tube BID folic acid (FOLVITE) tablet 1 mg per ng tube DAILY Free Water (bolus dose) 300 mL per ng tube Q6H gabapentin (NEURONTIN) solution 300 mg per ng tube BID hydrALAZINE (APRESOLINE) tablet 10 mg per ng tube TID ipratropium-albuteroL (DUONEB) 0.5 mg-3 mg(2.5 mg base)/3 mL nebulizer solution 3 mL nebulization Q4H PRN isosorbide DInitrate (ISORDIL) tablet 10 mg per ng tube TID lactulose (CHRONULAC) 20 gram/30 mL solution 30 mL per ng tube Q4H PRN lidocaine (PF) 10 mg/mL (1 %) injection 2 mg intradermal PRN lidocaine (PF) 10 mg/mL (1 %) injection 5 mg intradermal PRN lidocaine 5 % (LIDODERM) patch 1 Patch transdermal DAILY metoprolol TARtrate (LOPRESSOR) tablet 12.5 mg per ng tube BID multivitamin (NEPHROVITE) 0.8 mg tablet 1 Tablet per ng tube QHS nystatin (MYCOSTATIN) powder topical BID pantoprazole (PROTONIX) injection 40 mg intravenous DAILY papain-alpha amylase-cellulase (CLOG ZAPPER) 2-5 mL feeding tube PRN piperacillin-tazobactam 4.5 g in sodium chloride (NS MBP) 100 mL IVPB intravenous Q8H ramelteon (ROZEREM) tablet 8 mg per ng tube QHS rifAXIMin (XIFAXAN) tablet 550 mg per ng tube BID sodium chloride 0.9 % (flush) flush 10 mL intercatheter WEEKLY sodium chloride 0.9 % (flush) flush 10 mL intercatheter PRN sodium chloride 0.9 % (flush) flush 20 mL intercatheter PRN thiamine (VITAMIN B1) tablet 100 mg per ng tube DAILY white petrolatum 42 % ointment topical PRN wound dressing (TRIAD) paste topical DAILY Data Review: Reviewed in [employer], notable for the following: Recent Labs 07/10/23 1753 07/11/23 0427 07/11/23 1108 07/11/23 1345 07/11/23 1820 07/11/23 2255 07/12/23 0504 07/12/23 1534 07/13/23 0642 CREATININE -- 3.26* -- -- -- -- 2.92* -- 2.71* BUN -- 96* -- -- -- -- 84* -- 69* NA 160* 157* 133* 153* 154* 153* 147* 144 148* K 4.0 2.8* 3.0* 3.5 3.8 3.5 3.4* 3.7 4.4 CL 119* 121* 102 121* 120* 119* 114* 114* 117* CO2 19* 19* 15* 18* 18* 18* 18* 18* 17* Recent Labs 07/11/23 0427 07/12/23 0504 07/13/23 0642 PHOS 5.4* 4.9* 4.4 Recent Labs 07/10/23 2156 07/11/23 0427 07/12/23 0504 07/13/23 0640 HGB 8.3* 7.9* 7.4* 7.8* Sandeep Breen MD Nephrology Attending * Paulina Wallace, PT - 07/13/2023 1255 EDT [facility] Therapy Acute Therapies [facility] Physical Therapy Encounter Note Date of Service: 07/13/2023 Subjective/Objective Subjective Minimal verbalization but able to understand when he does verbalize. Called 2 nurses by their namesand asked for orange juice Objective Intervention completed today: Time: 10:00 Total treatment time: 25 minutes. Timed code treatment minutes: 25 Co-treatment performed with OT as 2 sets of skilled hands were necessary to facilitate movement andto cluster patient care needs. Pt received up in bed, agree to try to sit up. Nrg stopped tube feeds for therapy and then reconnected at end of session. Therapeutic Activity: During all functional activities noted above this patient was provided with manual assist and education via combination of verbal and demonstration. These were provided to give movement techniques to: optimize ability for patient to participate in and perform task and optimize patient safety Prior to mobility, brief LE exam with ROM functional, but decreased strength noted. He does not fully participate so strength exam is challenging but evidence of bilateral foot drop and with functional activities performed strength is decreased Bed mobility: Supine>sit with HOB 30 degrees to pt's RIGHT with maximal assist x 2 with pt assisting some withheavy cues. for [id number] sequencing. Sit>supine at end of session with mod assist x 2 and maximal assist for optimizing positioning in bed. Sitting balance: initial maximal assist with progression to close supervision to hands on minimal contact assist. Sitting 10 minutes with work on balance, and functional UE use. See OT note for additional activities performed throughout session Sit<>stand performed x 1 with moderate assist of 2 with 3/4 stand completed. With second trial, unable as patient does not actively assist. At end of session patient in: bed, call larson in reach, heels floated, bed alarm on, and bilateral rooke boots in place Patient/Family Education: Topic: Balance Bed mobility Positioning Role of therapy Safety transfers Learner: patient Method: verbal and demonstration Barriers to Learning: cognitive deficits Outcome: requires assist and needs practice Team Communication: Discussed current level of mobility and recommendations with nursing for assistance with mobility and positioning outside of PT. Nursing present to observe mobility during PT session Assessment/Plan Assessment Gains demonstrated today by increased responsiveness and progression to one sit<>stand trial.Patient continues with significant weakness, balance and cognitive deficits and should be assisted with all mobility attempts. Continue to recommend ARAMIS post hospitalization at this time. Plan Continue per plan of care Recommended Discharge Destination: Sub-acute rehabilitation Recommended Discharge Services: Physical therapy at rehabilitation facility Recommended Equipment Needs: To be determined by next care provider Other recommendations: No other consults recommended at this time Paulina Wallace, PT 07/13/2023 12:55 * Queenie Augustin, OT - 07/13/2023 1029 EDT [facility] Therapy Acute Therapies [facility] - Occupational Therapy Encounter Note Date of Service: 07/13/2023 Subjective/Objective SUBJECTIVE: My stomach is upset and I want hands off of me patient reporting at end of session Erik! I want orange juice Patient remembering nurse who he had previously and requesting orangejuice OBJECTIVE: Time: 1000 Total treatment time: 25 minutes. Timed code treatment minutes: 25 Co-treatment with physical therapy to facilitate functional mobility, enhance safety, and conserve energy. Interventions included: Self-Care/Home Management: Feeding: Min contact assist to reposition straw to mouth and hold NG tube out of the way. Patient able to grasp and bring cup to mouth with close supervision. Grasp weak and proximal weakness noted LE dressing: Max assist Supine to Sit: moderate assistance Sit to Supine: minimal contact assist of 2 Sit to Stand: minimal contact assist of 2 with hand hold assist at first attempt, on second attemptpatient not initiating mobility Stand to Sit: minimal contact assist of 2 with hand hold assist Maximal cues provided throughout for initiation, sequencing, hand placement, body positioning, safety Cognition: - initially sleeping upon arrival, with moderate cues and repositioning patient becoming alert and staying alert throughout session - verbalizations more clear and more appropriate contextual conversation - agitation intermittently throughout - following 1 step commands inconsistently with increased time, and cues - processing speed slow when asked orientation questions (increased agitation with these questions) - did not verbalize answer to orientation questions The patient was left in:Bed With the: Call larson in reach and 1:[address] Vital signs: Reported dizziness while sitting up: BP: 115/67 Patient/Family Education: Topic: Benefits of activity Role of OT Safety awareness Positioning Learner: patient Method: verbal and demonstration Barriers to Learning: desire/motivation to learn and cognitive deficits Outcome: reinforcement needed Team Communication: Notified:Nurse By:Face to face communication When:Prior to therapy About:Readiness for therapy Assessment/Plan ASSESSMENT: Derrick progressed with arousal and verbalizations this date. He was able to follow 1 step instructions inconsistently with increased time and cues. Patient also progressing with mobility this date as compared to evaluation. He remains with impairments in strength, cognition, and activity tolerance. Recommend ARAMIS when medically ready. PLAN: Continue per plan of care Recommended Discharge Destination: Sub-acute Rehabilitation Recommended Discharge Services: Occupational therapy at rehabilitation facility Recommended Discharge Equipment: To be determined Pager: [phone] Queenie Augustin OT, 07/13/2023, 10:29 * Araseli Finnegan MD - 07/13/2023 0745 EDT Medicine Progress Note Service Date: 07/13/2023 Admit Date: 06/25/2023 13:23 Reason for Admission: 68 y.o. male admitted with a chief complaint of epistaxis and now with a principal diagnosis of mixed cardiogenic/distributive shock. 24 Hour Events: Agitation improved. Patient talking, spoke on the phone with his sister, ronnie on R hand only without wrist restraints. He ate ice cream and applesauce PO yesterday. 5 beats of vtach OVN. Subjective/Objective Subjective Pt in mitt on R hand with 1:1 sitter at bedside. He appeared comfortable and was able to talk and respond to questions. Review of Systems Unable to obtain due to patient mental status Objective Vital Signs Temp: [36 ??C (96.8 ??F)-36.8 ??C (98.3 ??F)] , Heart Rate: [83 BPM-114 BPM] , Resp: [18-20] , BP: (100-141)/(63-84) , SpO2: [95 %-100 %] Physical Exam Gen: NAD, awake, soft restraints and NG tube in place Skin: Jaundiced, Warm, dry, intact on visible surfaces Cardiac: Regular rate and rhythm, no murmurs/rubs/gallops, +S1/S2 Resp: Coarse breath sounds in anterior lung mckee Abd: Soft, non-tender, non-distended, no visible lesions or scars, no hepatosplenomegaly Extr: No swelling/erythema, ecchymosis on extremities in various stages of healing-thigh hematoma within margins Neuro: unable to assess orientation. Spontaneous limb movement Medications: Reviewed Labs: Reviewed Imaging: None new Assessment/Plan Assessment Derrick Hobson is a 68 y.o. male with limited medical records available but a PMH significant for AF, COPD, Hep C, who initially presented for epistaxis with a prolonged hospital course complicated by hypotension, new severe systolic heart failure, AHRF, electrolyte derangements, and oliguria, consistent with cardiogenic shock, shock liver, and acute kidney failure of uncertain etiology who was transferred to [facility] for initiation of dialysis. Plan #Hypernatremia #Hypokalemia, resolved Na uptrending to 148 this am from 144 yesterday. -continue free water flushes 300ml Q6H -restart D5W at 100 cc an hour for 1 L -goal Na 140 tomorrow a.m. -appreciate nephrology recommendations #Critical Illness Myopathy #Malnutrition -stop TF for now to encourage PO intake -dysphagia II diet per SE[employer] TANK SERVICER -remove NG once taking exclusively PO #Acute Toxic/Metabolic Encephalopathy, improving #Concern for anoxic brain injury Concern for hypoactive delirium vs anoxic/hypoglycemic brain injury vs gabapentin/opiate withdrawalvs hepatic encephalopathy. MRI without evidence of anoxic or hypoglycemic brain injury. -Continue gabapentin 300 mg BID -continue rifaximin 550 mg BID, lactulose PRN (titrate to 2-3 BM daily) for hepatic encephalopathy -continue one-to-one sitter for now -continue mitts for now, would DC tomorrow if mental status continues to improve -delirium precautions -ramelteon 8 mg at bedtime -continue to engage family in goals of care discussions #Acute kidney failure, suspected ATN - resolving #Anasarca, resolved #Hyperphosphatemia Now with return of renal funtion with good UOP for multiple days; last HD was 07/06/2023. L IJ dilaysis line removed 07/10. -Daily BMP, Phos, mag -Strict I/O #Severe systolic heart failure (EF 20-25% --> 40%) #Mixed Cardiogenic/Distributive Shock (Resolved) EF improved significantly from 20% on admission to 40% on 06/27. Will need ischemic workup prior to discharge, cardiology signed off for now. -goal SBP 120-160, heart rate <100 per cardiology -continue isosorbide dinitrate 10 mg TID, hydralazine 10 mg p.o. TID -start MRA for GDMT prior to discharge (continue to hold off on starting this for now pending clinical stability) -reengage cardiology prior to discharge for TTE/ischemic workup -continue metoprolol tartrate 12.5 mg PO BID per NG #Persistent Afib (with RVR, resolved) - Telemetry - metop as above - Hold AC for femoral hematoma - Goal HR < 140 #Leukocytosis, resolved #Acute hypoxic respiratory failure, resolved #Hospital acquired pneumonia -continue piperacillin-tazobactam 4.5 g Q84 (ending 07/13) for HAP #L femoral hematoma, stable #Microcytic anemia, Thrombocytopenia #Coagulopathy/DIC, resolved Concern for DIC on admission secondary to nasal packing for epistaxis, complicated by hematoma of left medial leg. -daily CBC, PT/PTT -repeat CT angio if hematoma acutely worsened or hemodynamically unstable #Candiduria: not treating per ID unless clinical worsening in which case will treat with fluconazole #COPD: - 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 duonebs PRN - Maintain SpO2 > 88% #Decompensated Cirrhosis (ascites, jaundice) #Elevated Liver Chemistries 2/2 Shock Liver #Hx Hepatitis C Virus s/p treatment Unclear if pt has hx of liver injury. Current picture c/w resolving shock liver, though on admission AST was significant greater than ALT. Hyperbilirubinemia may be in part due to hemolysis of blood in hematoma. - Daily CMP - Will require EGD outpatient - Referral to hepatology clinic OP #Polysubstance Use Disorder - known hx cocaine use - ? EtOH use disorder - unclear if hx opioid use CHRONIC/STABLE/RESOLVED: #Mood disorder: 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 citalopram #Facial twitches: resolved # ?Neuropathic pain: Hold 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 Cyclobenzaprine 10mg daily with liver/kidney injury, Pt taking Gabapentin 800mg TID 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 which was restarted at renally adjusted dosing as above # Intermittent hypoglycemia: resolved CHECKLIST: Admission status: inpatient d/t renal impairment, weakness, and resolving shock VTE Prophylaxis: heparin 5K units BID Consults: n/a Code Status: Full Diet: Tube feeds, dysphagia 2 diet per SEPTIC TANK SERVICER and encourage PO intake Discharge Plan: Will likely require physical rehab given degree of weakness. Goal to achieve full PO nutrition for discharge Elinor Clark, MS3 I was present with the medical student for the history, physical exam, and medical decision making documented above. I have seen and examined the patient and performed my own history, physical exam, and medical decision making. I have verified and agree with the medical student's above documentation, and edited as appropriate to reflect my own exam and decision making. Lisa Davis MD PGY-1 Internal Medicine 07/13/23 Attestation: Pt seen and examined; I have reviewed Dr. Davis and Amber's note and agree with their findings, A and P as outlined above, with my additions in blue. I have personally reviewedthe laboratory and radiology results. I have personally spoken with housestaff, nursing, pharmacy. DOS 07/13/2023. Araseli Finnegan MD, MPH * Frank Alcantara RN - 07/13/2023 0659 EDT Problem: Safety: Description: Module scope: For the purpose of this module, the definition for restraint comes from the Medicare and Medicaid Programs; Hospital Conditions of Participation. A restraint is any manual,physical, or mechanical device, material, or equip ... Goal: Complications related to restraint use will be avoided or minimized Outcome: Ongoing Problem: Daily Care Plan Goals Goal: Care Plan Documentation Outcome: Ongoing Problem: SKIN INTEGRITY Goal: Skin integrity will improve or be maintained Outcome: Ongoing Data: Assumed patient care at 1900, pt in bed alert 1-2 mitts to right hand. Pt noted picking at NGtube 1:1 sitter at bedside. Redness to buttocks treatment applied. Multiple small loose bowel movements. Action: Vital signs taken medication given per may. Q 2 turn and hourly rounding continues. Takes sips of fluid tolerates well. Response: Resting comfortable safety measures in place. FRANK ALCANTARA RN 07/13/2023 4:13 * Hilda Jung MS CCC-SEPTIC TANK SERVICER - 07/12/2023 1358 EDT Speech-Language Pathology Contact Note SEPTIC TANK SERVICER returned to address ongoing issues with swallowing. Pt restless with sitter, and then later he had been repositioned by providers and was side-lying quietly. Current recommendations remain appropriate although it is not clear that pt has been taking any PO since recommended on 07/07/23. EN remains in place as primary source. SEPTIC TANK SERVICER to follow to provide interventions as appropriate. Hilda Jung MS CCC-SEPTIC TANK SERVICER 07/12/2023 13:58 Speech-Language Pathologist Acute Rehabilitation Therapy (SEPTIC TANK SERVICER/OT/PT) Secure Chat preferred Float SEPTIC TANK SERVICER Pager #[phone] (Daily from [phone]) * Sandeep Breen MD - 07/12/2023 1003 EDT NEPHROLOGY CONSULT PROGRESS NOTE Admit Date: 06/25/2023 Length of hospital stay: 17 Date of Service: 07/12/23 Attending Physician: Araseli Finnegan MD Reason for Consult: Acute kidney injury ASSESSMENT: Acute kidney injury: ATN in the setting of shock, contrast associated JOS (CT angio on 06/30). Has underlying hep C, COPD, HFrEF, alcohol use disorder and cocaine use disorder. JOS improving - serum Cr 2.92mg% on 07/12/2023. Received CRRT while in the MICU-last received intermittent hemodialysis on 07/05. Pt non- oliguric. No indication for dialysis and hemodialysis line DCd. Will continue to monitor for further renal recovery. Unsure if he has baseline CKD (last available serum Cr of 0.7mg% in 2014). 2. HFrEF (EF 40% on 06/27). No clinical evidence of pulmonary edema at this time. 3. Hepatic cirrhosis: h/o HepC s/p antiviral therapy. Has hyperbilirubinemia (total beto 10.0mg% on 07/06). AST, ALT improving. Pt on rifaximin. 4. Hypertension: reasonably well controlled on current antihypertensive regimen. Currently on hydralazine 10mg NG TID, metoprolol 12.5mg NG BID. 5. Hypernatremia: improving (Na of 147meq/l today AM). Likely due to decreased NG intake, post ATN diuresis and diarrhea from lactulose intake. Improved after D5W administration and restarting Tube feeds. RECOMMENDATIONS: Ok to continue D5W 75cc/h. Recommend rechecking Na 12 hrs. If hypernatremia worsens, OK to [id number] rate to 100-150cc/h. Goal is to get serum Na to 140meq/l in 24 hrs. Also agree with free water NG tube 300ml q6hrs. Recommend KCL supplementation 80meq po/NG X2 today,sodium bicarbonate 1300mg NG X2 today. Agree with holding his diuretics at this time. OK to DC sevelamer as hyperphosphatemia likely to improve further with JOS improvement. 24-hour events/Subjective: Resting comfortably. More awake today. On NG tube feeds. Currently on D5W @75cc/h. Denies chest pain/shortness of breath. Left IJ temporary dialysis catheter DCd on 07/10 -appreciate medicine team helpwith DC of dialysis line. Objective: Physical Examination: General Appearance:: awake, no distress, HEENT: no pallor, icterus+. Neck: supple. Resp: clear to auscultation bilaterally. CV: The heart rate is regular with a normal S1 S2, no murmur, rub, or gallop. GI: abd soft, non-tender. BS+ Neuro: no focal neurological deficit. Extremities: No lower extremity edema. Rt UE PICC line +. BP 135/88 (BP Cuff Location: Left arm, BP Patient Position: Semi fowlers) Pulse 93 Temp 36 ??C (96.8 ??F) (Oral) Resp 19 Ht 182.9 cm (72) Wt 60.1 kg (132 lb 7.9 oz) SpO2 95% BMI 17.97 kg/m?? Last 24 hours:07/10 0700 - 07/11 0659 In: 785.2 [I.V.:421.2] Out: 2200 [Urine:2200] Current 24 hours: Weights: Wt Readings from Last 5 Encounters: 07/12/23 60.1 kg (132 lb 7.9 oz) ROS: 10 point review of system is as above, otherwise negative. Medications: Current Facility-Administered Medications Medication Route Frequency acetaminophen (TYLENOL) solution unit dose cup 495 mg per ng tube Q6H alteplase (CATHFLO ACTIVASE) injection 2 mg intercatheter PRN amino acids-protein hydrolysate (PRO SOURCE NOCARB) packet 60 mL feeding tube BID aspirin chewable tablet 81 mg per ng tube DAILY citalopram (CELEXA) tablet 20 mg per ng tube DAILY dextrose 5 % (D5W) infusion intravenous CONTINUOUS dextrose 50 % solution 12.5 g intravenous PRN Dimethicone-Zinc Oxide 20-25 % spray,non-aerosol topical BID ferrous sulfate 75 mg/mL (JEAN-IN-ABHISHEK) liquid (15 mg/mL elemental iron) 45 mg per ng tube BID folic acid (FOLVITE) tablet 1 mg per ng tube DAILY Free Water (bolus dose) 300 mL per ng tube Q6H gabapentin (NEURONTIN) solution 300 mg per ng tube BID hydrALAZINE (APRESOLINE) tablet 10 mg per ng tube TID ipratropium-albuteroL (DUONEB) 0.5 mg-3 mg(2.5 mg base)/3 mL nebulizer solution 3 mL nebulization Q4H PRN isosorbide DInitrate (ISORDIL) tablet 10 mg per ng tube TID lactulose (CHRONULAC) 20 gram/30 mL solution 30 mL per ng tube Q4H PRN lidocaine (PF) 10 mg/mL (1 %) injection 2 mg intradermal PRN lidocaine (PF) 10 mg/mL (1 %) injection 5 mg intradermal PRN lidocaine 5 % (LIDODERM) patch 1 Patch transdermal DAILY metoprolol TARtrate (LOPRESSOR) tablet 12.5 mg per ng tube BID multivitamin (NEPHROVITE) 0.8 mg tablet 1 Tablet per ng tube QHS nutren 2.0 per g tube CONTINUOUS nystatin (MYCOSTATIN) powder topical BID pantoprazole (PROTONIX) injection 40 mg intravenous DAILY papain-alpha amylase-cellulase (CLOG ZAPPER) 2-5 mL feeding tube PRN piperacillin-tazobactam 4.5 g in sodium chloride (NS MBP) 100 mL IVPB intravenous Q8H ramelteon (ROZEREM) tablet 8 mg per ng tube QHS rifAXIMin (XIFAXAN) tablet 550 mg per ng tube BID sevelamer carbonate (RENVELA) powder for oral suspension 800 mg per ng tube Q8H sodium chloride 0.9 % (flush) flush 10 mL intercatheter WEEKLY sodium chloride 0.9 % (flush) flush 10 mL intercatheter PRN sodium chloride 0.9 % (flush) flush 20 mL intercatheter PRN thiamine (VITAMIN B1) tablet 100 mg per ng tube DAILY white petrolatum 42 % ointment topical PRN wound dressing (TRIAD) paste topical DAILY Data Review: Reviewed in [employer], notable for the following: Recent Labs 07/10/23 0507/10/23 1753 07/11/2342607/11/23 1108 07/11/23 1345 07/11/23 1820 07/11/23 2255 07/12/23 0504 CREATININE 3.31* -- 3.26* -- -- -- -- 2.92* BUN 99* -- 96* -- -- -- -- 84* NA 152* 160* 157* 133* 153* 154* 153* 147* K 3.3* 4.0 2.8* 3.0* 3.5 3.8 3.5 3.4* CL 113* 119* 121* 102 121* 120* 119* 114* CO2 19* 19* 19* 15* 18* 18* 18* 18* Recent Labs 07/10/2351607/11/2342607/12/23 0504 PHOS 6.2* 5.4* 4.9* Recent Labs 07/10/23 0507/10/23 2156 07/11/23 04207/12/23 0504 HGB 8.7* 8.3* 7.9* 7.4* Sandeep Breen MD Nephrology Attending * Araseli Finnegan MD - 07/12/2023 0749 EDT Medicine Progress Note Service Date: 07/12/2023 Admit Date: 06/25/2023 13:23 Reason for Admission: 68 y.o. male admitted with a chief complaint of epistaxis and now with a principal diagnosis of mixed cardiogenic/distributive shock. 24 Hour Events: L IJ CVC removed. Tube feeds continued with soft restraints and 1:1 sitter started for agitation and pulling at lines. Agitation improved overnight. Na continues to improve this AM, following max of 160 ovn 07/09-07/10 . Lt thigh hematoma remains stable. Subjective/Objective Subjective Pt in soft restraints with 1:1 sitter at bedside. Opens eyes to voice and name but prefers to keep eyes closed and resting. Spontaneously moves all limbs. 1:1 sitter states he has been verbal this morning, talking with nurses, and requested coffee as I want coffee. Review of Systems Unable to obtain due to patient mental status Objective Vital Signs Temp: [36.1 ??C (97 ??F)-36.6 ??C (97.8 ??F)] , Heart Rate: [75 BPM-113 BPM] , Resp: [20-24] , BP: (101-152)/(73-107) , SpO2: [93 %-100 %] Physical Exam Gen: NAD, awake, soft restraints and NG tube in place Skin: Jaundiced, Warm, dry, intact on visible surfaces Cardiac: Regular rate and rhythm, no murmurs/rubs/gallops, +S1/S2 Resp: Coarse breath sounds in anterior lung mckee Abd: Soft, non-tender, non-distended, no visible lesions or scars, no hepatosplenomegaly Extr: No swelling/erythema, ecchymosis on extremities in various stages of healing-thigh hematoma within margins Neuro: unable to assess orientation. Spontaneous limb movement Medications Reviewed Labs Reviewed Imaging: None Assessment/Plan Assessment Derrick Hobson is a 68 y.o. male with limited medical records available but a PMH significant for AF, COPD, Hep C, who presented for epistaxis and course complicated by hypotension, new severe systolic heart failure, AHRF, electrolyte derangements, and oliguria, consistent with cardiogenic shock, shock liver, and acute kidney failure of uncertain etiology. Transferred to [facility] for initiation of dialysis. Overall he is recovering from a mixed cardiogenic/distributive shock picture, now seeing some slow improvements in neuro status, though prognosis remains unclear. Agitation improving, possibly due to addition of gabapentin. Pt has had hypernatremia during this admission which was improving and then acutely increased with a max of 160 5/7 overnight. Has since continued to downtrend and currently on D5. Plan #Hypokalemia- improving #Hypernatremia-max 160 /, currently 147 -D5 started on 07/09 with free water deficit 2L - Continue free water flushes 300ml Q6H - F/u Na at 1400. Plan to change to Q12H - D5 1000ml at 75cc/hr. Can increase to 100-150cc/hr if hypernatremia worsens. Goal of 140meq/l by 07/12 - Nephrology consulted. Appreciate recs - KCL supplementation of 80meq X2 and NaHCO3 1300mg NG x2 07/11 #L femoral hematoma-stable #Microcytic anemia, Thrombocytopenia #Coagulopathy/DIC (resolving) Question of hematoma expansion evening of 07/09 with stable hgb and maintaining within margins. Chronic JANUSZ excacerbated by acute blood loss anemia iso DIC/hemolysis. Pattern of rising PTT, PT, D-dimerand a low fibrinogen is consistent with DIC, possibly complicated by suspected chronic liver disease though difficult to evaluate given lack of previous labs. Will continue to monitor for signs of active bleeding and repeat coags with or without TEG in the event of further bleeding. - Hgb downtrending to 7.4 07/11. Will continue to monitor hematoma for changes. 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 Also treating empirically for hepatic encephalopathy though much less likely as he is believed to have acute liver failure rather than cirrhosis. MRI without evidence of anoxic or hypoglycemic brain injury - lactulose, rifaximin - sedation/anxiety management with haldol, fentanyl PRN over propofol - Goals of care conversation with family. #Acute kidney failure, suspected ATN - resolving #Anasarca (improved) #Hyperphosphatemia L IJ dilaysis line removed 07/10. iHD with normalization of electrolytes. Now with return of some renal funtion with good UOP for multiple days; last HD was 07/06/2023 - Tums added as phos binder - Daily phos level - Goal fluid status net even - Avoid nephrotoxins - Trend BMP daily - Strict I/O - Nephrology consulted - DC'd sevelamer 07/11 with improvement of JOS #Severe systolic heart failure (EF 20-25% --> 40%) #Mixed Cardiogenic/Distributive Shock (Resolved) Off pressors and inotropes since 06/26. EF improved significantly from 20% on admission to 40% on 06/27. - HFrEF with regional wall motion abnormalities - will need ischemic workup prior to discharge - Goal SBP 120-160 - Cardiology consulted, appreciate recs (now signed off) - isosordil 10mg PO TID, hydralazine 10g PO TID - Goal HR <140 - ideally obtain repeat assessment of LVEF when no longer in RVR - ischemic eval with C prior to discharge (no urgency to study and the timing will be dictated byhis clinical improvement) - Will require MRA for GDMT at some point - Currently euvolemic, no role for lasix - continue metoprolol tartrate 12.5 mg PO BID as metoprolol succinate cannot be crushed and given in NG tube #Persistent Afib (with RVR): RVR resolved - Telemetry - metop as above - Hold AC for femoral hematoma - s/p Amio 400 mg PO daily - Goal HR < 140 #Leukocytosis #Acute hypoxic respiratory failure now with concern for possible HAP Extubated to 3L NC on 07/02. Now on RA. S/p CTX x7 d (06/26 - ) for empiric CAP coverage though overall low suspicion. - zosyn q12 hours for HAP concern (started 07/06) - new leukocytosis, new onset cough, mucous production #Candiduria: not treating per ID unless clinical worsening in which case will treat with fluconazole #COPD: - 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 duonebs PRN - Maintain SpO2 > 88% #Decompensated Cirrhosis (ascites, jaundice) #Elevated Liver Chemistries 2/2 Shock Liver #Hx Hepatitis C Virus s/p treatment Unclear if pt has hx of liver injury. Current picture c/w resolving shock liver, though on admission AST was significant greater than ALT. Hyperbilirubinemia may be in part due to hemolysis of blood in hematoma. 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 EtOH use disorder - unclear if hx opioid use CHRONIC/STABLE/RESOLVED: #HTN: 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 metop #Mood disorder: 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 citalopram #Facial twitches: resolved # ?Neuropathic pain: Hold 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 Cyclobenzaprine 10mg daily with liver/kidney injury, Pt taking Gabapentin 800mg TID 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 which was restarted at renally adjusted dosing as above # Intermittent hypoglycemia: resolved CHECKLIST: Admission status: inpatient d/t renal impairment, weakness, and resolving shock VTE Prophylaxis: heparin 5K units BID Consults: n/a Code Status: Full Diet: Tube feeds, dysphagia 2 diet per SEPTIC TANK SERVICER and encourage PO intake Discharge Plan: Will likely require physical rehab given degree of weakness Elinor Clark, MS3 I was present with the medical student for the history, exam, and medical decision making documented. I have personally performed my own physical exam and medical decision making. I have verified andagree with (or, as indicated, have edited) the medical student's documentation. Snehal Coffey MD PGY-1 #[id number] Attestation: Pt seen and examined; I have reviewed Dr. Coffey and Umair Clark's note and agree with their findings, A and P as outlined above, with my additions in blue. I have personally reviewed the laboratory and radiology results. I have personally spoken with housestaff, nursing, pharmacy. DOS 07/12/2023. Araseli Finnegan MD, MPH * Lisa Davis MD - 07/11/2023 1716 EDT Brief Procedure Note - L IJ CVC Removal Occlusive dressing and 2 sutures attaching catheter to the skin were removed. The skin surrounding catheter insertion site was cleaned with chlorhexidine. Catheter was removed, and pressure was held for 10 minutes. There was no bleeding from the catheter site on release. The site was dressed with petroleum jelly gauze, with overlying dry gauze secured with Tegaderm. Discussed with RN team. Lisa Davis MD PGY-1 Internal Medicine 07/11/23 * Sandeep Breen MD - 07/11/2023 1327 EDT NEPHROLOGY CONSULT PROGRESS NOTE Admit Date: 06/25/2023 Length of hospital stay: 16 Date of Service: 07/11/23 Attending Physician: Araseli Finnegan MD Reason for Consult: Acute kidney injury ASSESSMENT: Acute kidney injury: ATN in the setting of shock, contrast associated JOS (CT angio on 06/30). Has underlying hep C, COPD, HFrEF, alcohol use disorder and cocaine use disorder. JOS stable - serum Cr 3.26mg% on 07/11/2023. Received CRRT while in the MICU-last received intermittent hemodialysis on 07/05. Pt non- oliguric. No indication for dialysis and OK to DC hemodialysis lines at this time. Will continue to monitor for renal recovery. Unsure if he has baseline CKD (last available serum Cr of 0.7mg% in 2014). 2. HFrEF (EF 40% on 06/27). No clinical evidence of pulmonary edema at this time. 3. Hepatic cirrhosis: h/o HepC s/p antiviral therapy. Has hyperbilirubinemia (total beto 10.0mg% on 07/06). AST, ALT improving. Pt on rifaximin. 4. Hypertension: reasonably well controlled on current antihypertensive regimen. Currently on hydralazine 10mg NG TID, metoprolol 12.5mg NG BID. 5. Hypernatremia: worsening (Na of 157meq/l today AM). 3.6L free water deficit. Likely due to decreased NG intake, post ATN diuresis and diarrhea from lactulose intake. RECOMMENDATIONS: Recommend increasing D5W to 250cc/h (with 1 L D5W bolus). Recommend rechecking Na q4-6hrs. Goal is to get serum Na to 145meq/l in 24 hrs. Also agree with free water NG tube 300ml q6hrs, KCL supplementation 80meq po/NG X2 today, sodium bicarbonate 1300mg NG X2 today. Agree with holding his diuretics at this time. OK to DC of Left IJ temporary dialysis catheter. OK to continue sevelamer as currently doing. Addendum: Noted repeat Na 133meq/l on 07/10 at 11.08 - OK to reduce D5W to 200cc/h and recommend rechecking as this is likely dilutional and this quick correction of serum Na is not expected with D5W administration. 24-hour events/Subjective: Resting comfortably. Not oriented. Did not get tube feeds yesterday due to concern re positioning of NG tube. Currently on D5W @150cc/h. Denies chest pain/shortness of breath. Objective: Physical Examination: General Appearance:: awake, no distress, HEENT: no pallor, icterus+. Neck: supple. Resp: clear to auscultation bilaterally. CV: The heart rate is regular with a normal S1 S2, no murmur, rub, or gallop. GI: abd soft, non-tender. BS+ Neuro: no focal neurological deficit. Extremities: No lower extremity edema. Lt IJ temporary dialysis catheter + (placed on 06/24). Rt UE PICC line +. Left hip hematoma resolving. BP (!) 136/100 (BP Cuff Location: Left arm, BP Patient Position: Semi fowlers) Pulse 88 Temp 36.2 ??C (97.1 ??F) (Axillary) Resp 20 Ht 182.9 cm (72) Wt 60 kg (132 lb 4.4 oz) SpO2 99% BMI 17.94 kg/m?? Last 24 hours:07/09 699 - 07/10 658 In: 750 [I.V.:600] Out: 2054 [Urine:2054] Current 24 hours: Date 07/11/23699 - 07/12/2359 Shift 6759-9422 1089-8387 8773-1453 24 Hour Total INTAKE Shift Total(mL/kg) OUTPUT Urine(mL/kg/hr) 325 325 Shift Total(mL/kg) 325(5.4) 325(5.4) Weight (kg) 60 60 60 60 Weights: Wt Readings from Last 5 Encounters: 07/10/23 60 kg (132 lb 4.4 oz) ROS: 10 point review of system is as above, otherwise negative. Medications: Current Facility-Administered Medications Medication Route Frequency acetaminophen (TYLENOL) solution unit dose cup 495 mg oral Q6H alteplase (CATHFLO ACTIVASE) injection 2 mg intercatheter PRN amino acids-protein hydrolysate (PRO SOURCE NOCARB) packet 60 mL feeding tube BID [START ON 07/12/2023] aspirin chewable tablet 81 mg per ng tube DAILY [START ON 07/12/2023] citalopram (CELEXA) tablet 20 mg per ng tube DAILY dextrose 50 % solution 12.5 g intravenous PRN Dimethicone-Zinc Oxide 20-25 % spray,non-aerosol topical BID ferrous sulfate 75 mg/mL (JEAN-IN-ABHISHEK) liquid (15 mg/mL elemental iron) 45 mg per ng tube BID folic acid (FOLVITE) tablet 1 mg per ng tube DAILY Free Water (bolus dose) 300 mL per ng tube Q6H gabapentin (NEURONTIN) solution 300 mg per ng tube BID hydrALAZINE (APRESOLINE) tablet 10 mg per ng tube TID ipratropium-albuteroL (DUONEB) 0.5 mg-3 mg(2.5 mg base)/3 mL nebulizer solution 3 mL nebulization Q4H PRN isosorbide DInitrate (ISORDIL) tablet 10 mg per ng tube TID lactulose (CHRONULAC) 20 gram/30 mL solution 30 mL oral Q4H PRN lidocaine (PF) 10 mg/mL (1 %) injection 2 mg intradermal PRN lidocaine (PF) 10 mg/mL (1 %) injection 5 mg intradermal PRN lidocaine 5 % (LIDODERM) patch 1 Patch transdermal DAILY metoprolol TARtrate (LOPRESSOR) tablet 12.5 mg per ng tube BID multivitamin (NEPHROVITE) 0.8 mg tablet 1 Tablet per ng tube QHS nutren 2.0 per g tube CONTINUOUS pantoprazole (PROTONIX) injection 40 mg intravenous DAILY papain-alpha amylase-cellulase (CLOG ZAPPER) 2-5 mL feeding tube PRN piperacillin-tazobactam 4.5 g in sodium chloride (NS MBP) 100 mL IVPB intravenous Q8H ramelteon (ROZEREM) tablet 8 mg per ng tube QHS rifAXIMin (XIFAXAN) tablet 550 mg per ng tube BID sevelamer carbonate (RENVELA) powder for oral suspension 800 mg per ng tube Q8H sodium chloride 0.9 % (flush) flush 10 mL intercatheter WEEKLY sodium chloride 0.9 % (flush) flush 10 mL intercatheter PRN sodium chloride 0.9 % (flush) flush 20 mL intercatheter PRN thiamine (VITAMIN B1) tablet 100 mg per ng tube DAILY white petrolatum 42 % ointment topical PRN Data Review: Reviewed in PRISM, notable for the following: Recent Labs 07/08/23 1716 07/09/23 0523 07/10/23 0507/10/23 1753 07/11/23 0427 07/11/23 1108 CREATININE -- 3.34* 3.31* -- 3.26* -- BUN -- 96* 99* -- 96* -- NA 148* 147* 152* 160* 157* 133* K 3.0* 3.9 3.3* 4.0 2.8* 3.0* CL 108 109 113* 119* 121* 102 CO2 24 20* 19* 19* 19* 15* Recent Labs 07/09/23 0523 07/10/23 0517 07/11/23 042 PHOS 5.2* 6.2* 5.4* Recent Labs 07/09/23 0523 07/10/23 0517 07/10/23 2156 07/11/23 0427 HGB 7.7* 8.7* 8.3* 7.9* Sandeep Breen MD Nephrology Attending * Araseli Finnegan MD - 07/11/2023 0958 EDT Medicine Progress Note Service Date: 07/11/2023 Admit Date: 06/25/2023 13:23 Reason for Admission: 68 y.o. male admitted with a chief complaint of epistaxis and now with a principal diagnosis of mixed cardiogenic/distributive shock. 24 Hour Events: NG tube replaced with xray confirmation of placement. Tube feeds restarted, soft restraints and 1:1 sitter started for agitation and pulling at lines. Na of 160, improving slightly this AM. Evaluated overnight for possible expansion of Lt thigh hematoma-stable this AM. Subjective/Objective Subjective Pt in soft restraints with 1:1 sitter at bedside. Not interactive with exam but opens eyes to voiceand spontaneously moves all limbs. Review of Systems Unable to obtain due to patient mental status Objective Vital Signs Temp: [36.1 ??C (96.9 ??F)-36.9 ??C (98.4 ??F)] , Heart Rate: [82 BPM-107 BPM] , Resp: [20-24] , BP: (115-158)/(69-93) , SpO2: [94 %-99 %] Physical Exam Gen: NAD, awake, soft restraints and NG tube in place Skin: Jaundiced, Warm, dry, intact on visible surfaces Cardiac: Regular rate and rhythm, no murmurs/rubs/gallops, +S1/S2 Resp: Coarse breath sounds in anterior lung mckee Abd: Soft, non-tender, non-distended, no visible lesions or scars, no hepatosplenomegaly Extr: No swelling/erythema, ecchymosis on extremities in various stages of healing-thigh hematoma within margins Neuro: unable to assess orientation. Spontaneous limb movement Medications Reviewed Labs Reviewed Imaging: US LOWER VENOUS DUPLEX Result Date: 07/07/2023 Right lower extremity imaged from the external iliac vein to the popliteal vein. Patient declined further exam. No sonographic evidence of deep venous thrombosis in the right lower extremity above the knee. [id number] US ABDOMEN LIMITED Result Date: 07/06/2023 Cholelithiasis. No evidence of cholecystitis. Right pleural effusion. [id number] Assessment/Plan Assessment Derrick Hobson is a 68 y.o. male with limited medical records available but a PMH significant for AF, COPD, Hep C, who presented for epistaxis and course complicated by hypotension, new severe systolic heart failure, AHRF, electrolyte derangements, and oliguria, consistent with cardiogenic shock, shock liver, and acute kidney failure of uncertain etiology. Transferred to [facility] for initiation of dialysis. Overall he is recovering from a mixed cardiogenic/distributive shock picture, now seeing some slow improvements in neuro status, though prognosis remains unclear. Pt has had hypernatremia during this admission which was improving and then acutely increased with a max of 160. Plan #Hypokalemia- 2.8 this AM #Hypernatremia-max 160 07/09, currently 157 -Pt received 1 L D5 07/09. Free water deficit 2L - Continue free water flushes 300ml Q6H - Q4H lytes check - D5 1000ml at 250ml hr-Na goal 150 by 5 AM -replete K as needed #L femoral hematoma-stable #Microcytic anemia, Thrombocytopenia #Coagulopathy/DIC (resolving) Question of hematoma expansion evening of 07/09 with stable hgb and maintaining within margins. Chronic JANUSZ excacerbated by acute blood loss anemia iso DIC/hemolysis. Pattern of rising PTT, PT, D-dimerand a low fibrinogen is consistent with DIC, possibly complicated by suspected chronic liver disease though difficult to evaluate given lack of previous labs. Will continue to monitor for signs of active bleeding and repeat coags with or without TEG in the event of further bleeding. 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 Also treating empirically for hepatic encephalopathy though much less likely as he is believed to have acute liver failure rather than cirrhosis. MRI without evidence of anoxic or hypoglycemic brain injury - lactulose, rifaximin - sedation/anxiety management with haldol, fentanyl PRN over propofol - Goals of care conversation with family. #Acute kidney failure, suspected ATN - resolving #Anasarca (improved) #Hyperphosphatemia L IJ dilaysis line in place. iHD with normalization of electrolytes. Now with return of some renal funtion with good UOP for multiple days; last HD was 07/06/2023 - Tums added as phos binder - Daily phos level - Goal fluid status net even - Avoid nephrotoxins - Trend BMP daily - Strict I/O -remove HD line today #Severe systolic heart failure (EF 20-25% --> 40%) #Mixed Cardiogenic/Distributive Shock (Resolved) Off pressors and inotropes since 06/26. EF improved significantly from 20% on admission to 40% on 06/27. - HFrEF with regional wall motion abnormalities - will need ischemic workup prior to discharge - Goal SBP 120-160 - Cardiology consulted, appreciate recs (now signed off) - isosordil 10mg PO TID, hydralazine 10g PO TID - Goal HR <140 - ideally obtain repeat assessment of LVEF when no longer in RVR - ischemic eval with LHC prior to discharge (no urgency to study and the timing will be dictated byhis clinical improvement) - Will require MRA for GDMT at some point - Currently euvolemic, no role for lasix - continue metoprolol tartrate 12.5 mg PO BID as metoprolol succinate cannot be crushed and given in NG tube #Persistent Afib (with RVR): RVR resolved - Telemetry - metop as above - Hold AC for femoral hematoma - s/p Amio 400 mg PO daily - Goal HR < 140 #Leukocytosis #Acute hypoxic respiratory failure now with concern for possible HAP Extubated to 3L NC on 07/02. Now on RA. S/p CTX x7 d (06/26 - ) for empiric CAP coverage though overall low suspicion. - zosyn q12 hours for HAP concern (started 07/06) - new leukocytosis, new onset cough, mucous production #Candiduria: not treating per ID unless clinical worsening in which case will treat with fluconazole #COPD: - 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 duonebs PRN - Maintain SpO2 > 88% #Decompensated Cirrhosis (ascites, jaundice) #Elevated Liver Chemistries 2/2 Shock Liver #Hx Hepatitis C Virus s/p treatment Unclear if pt has hx of liver injury. Current picture c/w resolving shock liver, though on admission AST was significant greater than ALT. Hyperbilirubinemia may be in part due to hemolysis of blood in hematoma. - Daily CMP - Lasix, josey as above - Will require EGD outpatient - Referral to hepatology clinic OP #Critical Illness Myopathy #Malnutrition - Nutren tube feeds 33 cc/hr per Nutrition, but encourage PO intake - bowel regimen PRN - PT/OT - SEPTIC TANK SERVICER - Remove NG once taking PO #Polysubstance Use Disorder - known hx cocaine use - ? EtOH use disorder - unclear if hx opioid use CHRONIC/STABLE/RESOLVED: #HTN: 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 metop #Mood disorder: 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 citalopram #Facial twitches: resolved # ?Neuropathic pain: Hold 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 Cyclobenzaprine 10mg daily with liver/kidney injury, Pt taking Gabapentin 800mg TID 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-restarting gabapentin as above # Intermittent hypoglycemia: resolved CHECKLIST: Admission status: inpatient d/t renal impairment, weakness, and resolving shock VTE Prophylaxis: heparin 5K units BID Consults: n/a Code Status: Full Diet: Tube feeds, dysphagia 2 diet per SEPTIC TANK SERVICER and encourage PO intake Discharge Plan: Will likely require physical rehab given degree of weakness Snehal Coffey MD PGY-1 #[id number] Attestation: Pt seen and examined; I have reviewed Dr. Coffey's note and agree with her findings, A and P as outlined above, with my additions in blue. I have personally reviewed the laboratory and radiology results. I have personally spoken with housestaff, pharmacy, nursing. DOS 07/11/2023. Araseli Finnegan MD, MPH * Roxane Parikh RN - 07/10/2023 2491 EDT MED SURG (NON VIOLENT) RESTRAINT KJ NOTE Data: Assumed care for pt at [id number]. Patient placed in Hand Mitts and Soft Limb restraints due to interfering with necessary care and support of the medical healing by Pulling/picking at IV lines/tubes/dressings and Flailing limbs/thrashing. Provider Carmella Holland @ bedside when order for med-surg medical restraints requested. Action: Alternatives to restraints attempted this shiftProvide companionship/supervision, Modifyingthe environment, and Reality Orientation and Psychosocial Interventions 1:1 @ bedside for redirection and companionship; Verbal redirection provided; changes in environment/ decrease in stimuli provided with no changes in behavior (pt kicking legs, thrashing arms, moaning, multiple attempts to pull out lines/drains/tubes (alston/ newly placed NGT which had recently beenreinserted nightshift 07/10/23), PIV). Response: Pt skin assessed during shift: new rover images obtained (see skin images) Concerns for increasing ecchymosis/hematoma to left inner inguinal/groin area. Provider Carmella Douglass and Rapid RN Annette Jernigan called to beside to assess patient. New orders for labs placed (see labs). Pt settled with 1:1, restraints in placed, and monitored. Hand off report completed. BP (!) 158/93 Pulse 100 Temp 36.8 ??C (98.2 ??F) (Axillary) Resp 22 Ht 182.9 cm (72) Wt 60 kg (132 lb 4.4 oz) SpO2 97% BMI 17.94 kg/m?? * Annette Jernigan RN - 07/10/2023 2229 EDT Rapid Response Team Emergency Response Nurse Consult Only Note NATY only call for expanding hematoma to left anterior/medial thigh. Patient agitated with sitter atbedside. Attempting to pull at tubes and drains and bite staff. MD at bedside. Placed in soft restraints. Swelling and ecchymosis to left anterior/medial thigh. No extension to posterior or flank. VSS, labs drawn. MD reporting plan to see results of CBC prior to deciding if imaging is necessary at this time. Boarders of ecchymosis traced. Patient to remain on M6 at this time. ERNs available for additional support. * Sandeep Breen MD - 07/10/2023 1048 EDT NEPHROLOGY CONSULT PROGRESS NOTE Admit Date: 06/25/2023 Length of hospital stay: 15 Date of Service: 07/10/23 Attending Physician: Araseli Finnegan MD Reason for Consult: Acute kidney injury ASSESSMENT: Acute kidney injury: ATN in the setting of shock, contrast associated JOS (CT angio on 06/30). Has underlying hep C, COPD, HFrEF, alcohol use disorder and cocaine use disorder. JOS stable - serum Cr 3.31mg% on 07/10/2023. Received CRRT while in the MICU-last received intermittent hemodialysis on 07/05. Pt non- oliguric. No urgent indication for dialysis and will hold hemodialysis at this time. Will continue to monitor for renal recovery. Unsure if he has baseline CKD (last available serum Cr of 0.7mg% in 2014). 2. HFrEF (EF 40% on 06/27). No clinical evidence of pulmonary edema at this time. 3. Hepatic cirrhosis: h/o HepC s/p antiviral therapy. Has hyperbilirubinemia (total beto 10.0mg% on 07/06). AST, ALT improving. Pt on rifaximin. 4. Hypertension: reasonably well controlled on current antihypertensive regimen. Currently on hydralazine 10mg NG TID. RECOMMENDATIONS: Agree with D5W @ 100cc/h for total 2L, free water NG tube 300ml q6hrs, KCL supplementation 40meq po/NG X2 today. Recommend starting sodium bicarbonate 650mg po/NG X2 today. Agree with holding his diuretics at this time. OK to DC of Left IJ temporary dialysis catheter. OK to continue sevelamer as currently doing. 24-hour events/Subjective: Resting comfortably. Not oriented. NG tube feeds @ 33cc/h. Denies chest pain/shortness of breath. Objective: Physical Examination: General Appearance:: awake, no distress, HEENT: no pallor, icterus+. Neck: supple. Resp: clear to auscultation bilaterally. CV: The heart rate is regular with a normal S1 S2, no murmur, rub, or gallop. GI: abd soft, non-tender. BS+ Neuro: no focal neurological deficit. Extremities: No lower extremity edema. Lt IJ temporary dialysis catheter + (placed on 06/24). Rt UE PICC line +. Left hip hematoma resolving. BP (!) 140/106 (BP Cuff Location: Left arm, BP Patient Position: Semi fowlers) Comment: RN notified Pulse 100 Temp 35.8 ??C (96.5 ??F) (Axillary) Resp 20 Ht 182.9 cm (72) Wt 60 kg (132 lb 4.4 oz) SpO2 98% BMI 17.94 kg/m?? Last 24 hours:07/08 0700 - 07/09 0659 In: 280 [P.O.:40] Out: 2450 [Urine:2450] Current 24 hours: Weights: Wt Readings from Last 5 Encounters: 07/10/23 60 kg (132 lb 4.4 oz) ROS: 10 point review of system is as above, otherwise negative. Medications: Current Facility-Administered Medications Medication Route Frequency acetaminophen (TYLENOL) solution unit dose cup 495 mg oral Q6H alteplase (CATHFLO ACTIVASE) injection 2 mg intercatheter PRN amino acids-protein hydrolysate (PRO SOURCE NOCARB) packet 60 mL feeding tube BID amiodarone (PACERONE) tablet 400 mg oral DAILY aspirin chewable tablet 81 mg oral DAILY citalopram (CELEXA) tablet 20 mg oral DAILY dextrose 5 % in lactated ringers infusion intravenous CONTINUOUS dextrose 50 % solution 12.5 g intravenous PRN Dimethicone-Zinc Oxide 20-25 % spray,non-aerosol topical BID ferrous sulfate 75 mg/mL (JEAN-IN-ABHISHEK) liquid (15 mg/mL elemental iron) 45 mg per ng tube BID folic acid (FOLVITE) tablet 1 mg per ng tube DAILY Free Water (bolus dose) 300 mL per ng tube Q6H heparin injection 5,000 Units subcutaneous Q12H hydrALAZINE (APRESOLINE) tablet 10 mg per ng tube TID ipratropium-albuteroL (DUONEB) 0.5 mg-3 mg(2.5 mg base)/3 mL nebulizer solution 3 mL nebulization Q4H PRN isosorbide DInitrate (ISORDIL) tablet 10 mg per ng tube TID lactulose (CHRONULAC) 20 gram/30 mL solution 30 mL oral Q4H PRN lidocaine (PF) 10 mg/mL (1 %) injection 2 mg intradermal PRN lidocaine (PF) 10 mg/mL (1 %) injection 5 mg intradermal PRN lidocaine 5 % (LIDODERM) patch 1 Patch transdermal DAILY [START ON 07/11/2023] metoprolol SUCCinate (TOPROL-XL) tablet 25 mg oral DAILY metoprolol TARtrate (LOPRESSOR) tablet 12.5 mg oral BID multivitamin (NEPHROVITE) 0.8 mg tablet 1 Tablet oral QHS nutren 2.0 per g tube CONTINUOUS pantoprazole (PROTONIX) injection 40 mg intravenous DAILY papain-alpha amylase-cellulase (CLOG ZAPPER) 2-5 mL feeding tube PRN piperacillin-tazobactam 4.5 g in sodium chloride (NS MBP) 100 mL IVPB intravenous Q8H potassium chloride SA (KLOR-CON M20) tablet 20 mEq oral BID Or potassium chloride (KLOR-CON) packet 20 mEq oral BID rifAXIMin (XIFAXAN) tablet 550 mg oral BID sevelamer carbonate (RENVELA) powder for oral suspension 800 mg per ng tube Q8H sodium chloride 0.9 % (flush) flush 10 mL intercatheter WEEKLY sodium chloride 0.9 % (flush) flush 10 mL intercatheter PRN sodium chloride 0.9 % (flush) flush 20 mL intercatheter PRN thiamine (VITAMIN B1) tablet 100 mg per ng tube DAILY Data Review: Reviewed in PRISM, notable for the following: Recent Labs 07/08/23 0631 07/08/23 1716 07/09/23 0523 07/10/23 0517 CREATININE 3.55* -- 3.34* 3.31* BUN 90* -- 96* 99* NA 149* 148* 147* 152* K 3.0* 3.0* 3.9 3.3* CL 106 108 109 113* CO2 26 24 20* 19* Recent Labs 07/08/23 0631 07/09/23 0523 07/10/23 0517 PHOS 5.4* 5.2* 6.2* Recent Labs 07/08/23 0632 07/09/23 0523 07/10/23 0517 HGB 7.8* 7.7* 8.7* Sandeep Breen MD Nephrology Attending * Araseli Finnegan MD - 07/10/2023 0931 EDT Medicine Progress Note Service Date: 07/10/2023 Admit Date: 06/25/2023 13:23 Reason for Admission: 68 y.o. male admitted with a chief complaint of epistaxis and now with a principal diagnosis of mixed cardiogenic/distributive shock. 24 Hour Events: NAEO Subjective/Objective Subjective Pt seen at bedside this AM. Is in no acute distress but is not able to interact with interviewer. Review of Systems Unable to obtain due to patient mental status Objective Vital Signs Temp: [35.8 ??C (96.5 ??F)-36.3 ??C (97.4 ??F)] , Heart Rate: [89 BPM-100 BPM] , Resp: [18-26] , BP: (113-157)/(84-106) , SpO2: [94 %-98 %] Physical Exam Gen: NAD, awake Skin: Jaundiced, Warm, dry, intact on visible surfaces Cardiac: Regular rate and rhythm, no murmurs/rubs/gallops, +S1/S2 Resp: Coarse breath sounds in anterior lung mckee Abd: Soft, non-tender, non-distended, no visible lesions or scars, no hepatosplenomegaly Extr: No swelling/erythema, ecchymosis on extremities in various stages of healing Neuro: Awake,unable to assess orientation. Spontaneous limb movement Medications Reviewed Labs Reviewed MELD 3.0: 31 at 07/09/2023 5:23 MELD-Na: 30 at 07/09/2023 5:23 Calculated from: Serum Creatinine: 3.55 mg/dL (Using max of 3 mg/dL) at 07/08/2023 6:31 Serum Sodium: 148 mmol/L (Using max of 137 mmol/L) at 07/08/2023 17:16 Total Bilirubin: 10.0 mg/dL at 07/07/2023 5:54 Serum Albumin: 3.0 g/dL at 07/07/2023 5:54 INR(ratio): 1.3 Ratio at 07/09/2023 5:23 Age at listing (hypothetical): 68 years Sex: Male at 07/09/2023 5:23 Imaging: US LOWER VENOUS DUPLEX Result Date: 07/07/2023 Right lower extremity imaged from the external iliac vein to the popliteal vein. Patient declined further exam. No sonographic evidence of deep venous thrombosis in the right lower extremity above the knee. [id number] US ABDOMEN LIMITED Result Date: 07/06/2023 Cholelithiasis. No evidence of cholecystitis. Right pleural effusion. [id number] Assessment/Plan Assessment Derrick Hobson is a 68 y.o. male with limited medical records available but a PMH significant for AF, COPD, Hep C, who presented for epistaxis and course complicated by hypotension, new severe systolic heart failure, AHRF, electrolyte derangements, and oliguria, consistent with cardiogenic shock, shock liver, and acute kidney failure of uncertain etiology. Transferred to [facility] for initiation of dialysis. Overall he is recovering from a mixed cardiogenic/distributive shock picture, now seeing some slow improvements in neuro status, though prognosis remains unclear. New leukocytosis but afebrile. Pt has multiple BM c/f possible c diff infection. Pt also has coarsebreath sounds which could be related to upper airway secretion clearance vs aspiration as pt is currently being treated for HAP with zosyn. Plan #Acute kidney failure, suspected ATN - resolving #Anasarca (improved) #Hyperphosphatemia L IJ dilaysis line in place. iHD with normalization of electrolytes. Now with return of some renal funtion with good UOP but still requiring HD; last HD was 07/06/2023 - Renal suggesting may be able todc HD and remove line - Tums added as phos binder - Daily phos level - Goal fluid status net even - Avoid nephrotoxins - Trend BMP daily - Strict I/O #Hypokalemia #Hypernatremia - Free water flushes 300ml Q6H increased from 200ml Q6H - recheck BMP - D5 500ml at 100ml hr #Severe systolic heart failure (EF 20-25% --> 40%) #Mixed Cardiogenic/Distributive Shock (Resolved) Off pressors and inotropes since 06/26. EF improved significantly from 20% on admission to 40% on 06/27. - HFrEF with regional wall motion abnormalities - will need ischemic workup prior to discharge - Goal SBP 120-160 - Cardiology consulted, appreciate recs (now signed off) - isosordil 10mg PO TID, hydralazine 10g PO TID - Goal HR <140 - ideally obtain repeat assessment of LVEF when no longer in RVR - ischemic eval with C prior to discharge (no urgency to study and the timing will be dictated byhis clinical improvement) - Will require MRA for GDMT at some point - Currently euvolemic, no role for lasix - continue metoprolol tartrate 12.5 mg PO BID today and consolidate to metoprolol succinate 25mg daily tomorrow #Persistent Afib (currently in RVR): improved - Telemetry - metop as above - Hold AC for femoral hematoma - D/C Amio 400 mg PO daily - Goal HR < 140 #Leukocytosis #Acute hypoxic respiratory failure now with concern for possible HAP vs C diff Extubated to 3L NC on 07/02. Now on RA. S/p CTX x7 d (06/26 - ) for empiric CAP coverage though overall low suspicion. Pt also has 4 BM in 24 hrs. - zosyn q12 hours for HAP concern - new leukocytosis, new onset cough, mucous production -F/U c diff and CXR #Candiduria: not treating per ID unless clinical worsening in which case will treat with fluconazole #COPD: - 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 duonebs PRN - Maintain SpO2 > 88% #Decompensated Cirrhosis (ascites, jaundice) #Elevated Liver Chemistries 2/2 Shock Liver #Hx Hepatitis C Virus s/p treatment Unclear if pt has hx of liver injury. Current picture c/w resolving shock liver, though on admission AST was significant greater than ALT. Hyperbilirubinemia may be in part due to hemolysis of blood in hematoma. - Daily CMP - Lasix, josey as above - Will require EGD outpatient - Referral to hepatology clinic OP #Microcytic anemia, Thrombocytopenia #L femoral hematoma #Coagulopathy/DIC (resolving) Hematoma stable thus far, no e/o ongoing bleed. Chronic JANUSZ excacerbated by acute blood loss anemiaiso DIC/hemolysis. Pattern of rising PTT, PT, D-dimer and a low fibrinogen is consistent with DIC, possibly complicated by suspected chronic liver disease though difficult to evaluate given lack of previous labs. Will continue to monitor for signs of active bleeding and repeat coags with or withoutTEG in the event of further bleeding. - If Hb drops, get CTA and consult IR - Daily CBC - Consider Fe supplementation prior to d/c - Daily PT/PTT #Acute Toxic/Metabolic Encephalopathy #Concern for anoxic brain injury Concern for hypoactive ICU delirium vs an anoxic/hypoglycemic brain injury. Also treating empirically for hepatic encephalopathy though much less likely as he is believed to have acute liver failure rather than cirrhosis. MRI without evidence of anoxic or hypoglycemic brain injury - lactulose, rifaximin - sedation/anxiety management with haldol, fentanyl PRN over propofol - Goals of care conversation with family. #Critical Illness Myopathy #Malnutrition - Nutren tube feeds 33 cc/hr per Nutrition, but encourage PO intake - bowel regimen PRN - PT/OT - SEPTIC TANK SERVICER - Remove NG once taking PO #Polysubstance Use Disorder - known hx cocaine use - ? EtOH use disorder - unclear if hx opioid use CHRONIC/STABLE/RESOLVED: #HTN: 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 metop #Mood disorder: 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 citalopram #Facial twitches: resolved # ?Neuropathic pain: Hold 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 Cyclobenzaprine 10mg daily, Gabapentin 800mg TID with liver/kidney injury # Intermittent hypoglycemia: resolved CHECKLIST: Admission status: inpatient d/t renal impairment, weakness, and resolving shock VTE Prophylaxis: heparin 5K units BID Consults: n/a Code Status: Full Diet: Tube feeds, dysphagia 2 diet per SEPTIC TANK SERVICER and encourage PO intake Discharge Plan: Will likely require physical rehab given degree of weakness Snehal Coffey MD PGY-1 #[id number] Attestation: Pt seen and examined; I have reviewed Dr. Coffey's note and agree with her findings, A and P as outlined above, with my additions in blue. I have personally reviewed the laboratory and radiology results. I have personally spoken with housestaff, nursing, pharmacy. DOS 07/10/2023. Araseli Finnegan MD, MPH * Mercy Kim, PT - 07/09/2023 7405 EDT [facility] Acute Therapies [facility] Encounter Note Date of Service: 07/09/2023 Subjective/Objective Subjective Speech nearly unintelligible throughout session. Understood Umm Objective Intervention completed today: Time: 1420 Total treatment time: 30 minutes. Timed code treatment minutes: 30 Pt received up in bed, appeared to agree to try to sit up. Pt moaning/groaning throughout, appeared slightly agitated, but not pulling on tube feeds, etc. Nrg present and assisted throughout. Nrg stopped tube feeds for therapy and then reconnected at endof session. BP 137/70's at start of tx BP 112/70's sitting at EOB after ~6-7 min, so returned to supine. Pt fatigued. Therapeutic Activity: Bed mobility: Rolling L & R for draw sheet placement for safety (since pt on air mattress) with max assist x 1-2 with pt resisting some. Supine>sit with HOB 30 degrees to pt's RIGHT with max assist x 2 with pt assisting some with heavy v.c. for [id number] sequencing. Sit>supine with HOB flat with mod assist x 2 Sitting balance: max assist for initial set-up, and then once placed, pt able to hold static sitting balance with contact guard assist. (Kept at contact guard assist, due to pt attempting to stand x 1, and moving a little impulsively). When cued to correct sitting balance, pt able to do so, (lift head, sit up straight, etc). Could respond with yes/no when asked if dizzy or getting tired. At end of 6-7 min, pt starting to lean head on this web content writer who was in front, but could pick it up when cued. Pt left BTB with nrg present for feeding, resting comfortably. +B Rooke boots donned again at end of session (on upon arrival), +bed alarm placed on. Patient/Family Education: Topic: Balance Bed mobility Positioning Role of therapy Safety Learner: patient Method: verbal and demonstration Barriers to Learning: cognitive deficits Outcome: requires assist and needs practice Team Communication: nrg present throughout tx Assessment/Plan Assessment Derrick responsive to name/visibly tracking this web content writer throughout the room. Would not lift limbs in bed, but once sitting EOB, appeared to engage more with providers. Pt appeared to enjoy sitting up, but fatigued quickly. Recommend trial of sit<>stand with isac-stedy or use of justine for OOB>chair. Would not attempt stand-pivot right now. Agree with ARAMIS. Plan Continue per plan of care Recommended Discharge Destination: Sub-acute rehabilitation Recommended Discharge Services: Physical therapy at rehabilitation facility Recommended Equipment Needs: To be determined by next care provider Other recommendations: No other consults recommended at this time Pager: [phone] Mercy Kim, PT 07/09/2023 17:25 * Niecy Reynolds - 07/09/2023 1633 EDT Initial Case Management/Social Work Assessment and Discharge Plan/Readmission Risk Assessment REASON FOR ADMISSION: Cardiogenic shock ([facility]) Patient understands reason for admission: PATIENT INFO VERIFIED: Type of housing (single family, condo, apartment, alf, single room occupancy, [facility] funded hotel room, group custodial) - apartment Who does the patient live with? alone Does the patient have access to their own bedroom/bathroom/kitchen - or is it shared with others? own Discharge Delay Risk Assessment 1. Disease/Medical Condition: Diseases or conditions that result in ADL decline or continuous medical treatment 2. Hospitalization: Unplanned admission 3. Family Structure: Living alone 4. Activities of daily living: Nursing or support will be required at discharge 5. Nursing status at home: Home visit doctor or nursing is required 6. Continued medical treatment required: Ventilator Major Barrier day total 1-6: 3 Risk for Delayed Discharge: At Risk For Delayed Discharge 8. Social issues: Absence of slot key person Major Barrier day total 7-8: 1 Risk for Delayed Discharge: At Risk For Delayed Discharge Does the patient meet criteria to be escalated?: No How was escalation determined?: Bark Fitter discretion LIVING ARRANGEMENTS AND ACCESSIBILITY ISSUES: Living Arrangements: Alone What in home social supports are available to the patient? Unable to assess Is 25/09 care available? ADVANCED DIRECTIVES, POA &/or COLST IN PLACE: Healthcare Directive: No, patient unable to respond due to condition Information Provided on Healthcare Directives: No Information on Healthcare Directives Requested: No DIRECTIVES FOR FINANCES: TRANSPORTATION: CULTURAL, BAPTIST and/or LANGUAGE factors affecting health care/discharge planning: Spiritual/Cultural Requests: Completed Insurance Information: Medicare Medicaid Nutrition: DISCHARGE RISK ASSESSMENT: Total # selected above: Tentative plan to address the risk of re-hospitalization for those at HIGH MODERATE RISK: RAPT TOOL: SBIRT: Unable to assess-SASQ: Other (Comment) (incomprehensible speech) FUNCTIONAL STATUS: Activities patient requires assistance: None Assistive Devices: None COMMUNITY RESOURCES/SUPPORTS: Primary Care Provider: Davian Guzman PCP Verified: Specialists: MICHELLE Provider: Pharmacy: No Pharmacies Listed Home Health: Other: POST HOSPITAL TRANSITION PLAN: Derrick Hobson is a 68 y.o. male with limited medical records available but a PMH significant for AF, COPD, Hep C, who presented for epistaxis and course complicated by hypotension, new severe systolic heart failure, AHRF, electrolyte derangements, and oliguria, consistent with cardiogenic shock, shock liver, and acute kidney failure of uncertain etiology. Transferred to [facility] for initiation of dialysis. Overall he is recovering from a mixed cardiogenic/distributive shock picture, now seeing some slow improvements in neuro status, though prognosis remains unclear. CM completed assessment with chart review. CM spoke with pt's sister Tarah. Tarah stated that pt has lived alone for quite some time and that the family has not been in touch with the pt much in recent years. CM left phone number with her so that any of the sibling or pt's niece may call if they need/want to talk to case management. CM will continue to monitor the clinical notes, meet with the tt, and regularly check in with the patient throughout their hospital stay to ensure a safe discharge. MINERVA Kingston, M. Ed. Bark Fitter II Social Work and Case Management NIECY REYNOLDS 07/09/2023 16:34 * Romy Marie, RD - 07/09/2023 1328 EDT Nutrition Assessment Note: Reassessment BACKGROUND DATA Subjective: Pt is tolerating TF without issue per RN. Diet was advanced but he still struggles with eating d/t confusion. Current Nutrition Orders: Diet: Dysphagia 2, thin liquids TF Rx: Nutren 2.0 at 33 mL/hr continuous + 60 mL Prosource BID - Provides 1825 calories, 127 g protein, 1663 mg K+, 1172 mg phos, 171 g carb, and 545 mL water daily - EFW: 200 mL Q6H Physical Findings: Digestive Systems: Last BM 07/08 Dentition: Teeth: Missing teeth per flowsheets Edema: none Skin: pressure injury Allergies on file: Clonidine Anthropometrics: Height: 182.9 cm (72) Weights Filed This Admission 06/25/23 1340 06/28/23 0900 06/29/23 1333 06/30/23 0815 Weight: 80.3 kg (177 lb) 80.3 kg (177 lb) 80.2 kg (176 lb 12.9 oz) 80.7 kg (177 lb 14.6 oz) 07/02/23 0949 07/02/23 1410 07/04/23 1011 07/06/23 0600 Weight: 81 kg (178 lb 9.2 oz) 80 kg (176 lb 5.9 oz) 80 kg (176 lb 5.9 oz) 70.2 kg (154 lb 12.2 oz) 07/06/23 0923 07/09/23 0611 Weight: 70.2 kg (154 lb 12.2 oz) 60.1 kg (132 lb 7.9 oz) Body mass index is 17.97 kg/m??. Weight Change: -19.9kg x5 days Pertinent Medications: Current Facility-Administered Medications Medication Route Frequency acetaminophen (TYLENOL) solution unit dose cup 495 mg oral Q6H alteplase (CATHFLO ACTIVASE) injection 2 mg intercatheter PRN amino acids-protein hydrolysate (PRO SOURCE NOCARB) packet 60 mL feeding tube BID amiodarone (PACERONE) tablet 400 mg oral DAILY aspirin chewable tablet 81 mg oral DAILY citalopram (CELEXA) tablet 20 mg oral DAILY dextrose 50 % solution 12.5 g intravenous PRN Dimethicone-Zinc Oxide 20-25 % spray,non-aerosol topical BID ferrous sulfate 75 mg/mL (JEAN-IN-ABHISHEK) liquid (15 mg/mL elemental iron) 45 mg per ng tube BID folic acid (FOLVITE) tablet 1 mg per ng tube DAILY Free Water (bolus dose) 200 mL per ng tube Q6H heparin injection 5,000 Units subcutaneous Q12H hydrALAZINE (APRESOLINE) tablet 10 mg per ng tube TID ipratropium-albuteroL (DUONEB) 0.5 mg-3 mg(2.5 mg base)/3 mL nebulizer solution 3 mL nebulization Q4H PRN isosorbide DInitrate (ISORDIL) tablet 10 mg per ng tube TID lactulose (CHRONULAC) 20 gram/30 mL solution 30 mL oral Q4H PRN lidocaine (PF) 10 mg/mL (1 %) injection 2 mg intradermal PRN lidocaine (PF) 10 mg/mL (1 %) injection 5 mg intradermal PRN lidocaine 5 % (LIDODERM) patch 1 Patch transdermal DAILY metoprolol TARtrate (LOPRESSOR) tablet 12.5 mg oral BID multivitamin (NEPHROVITE) 0.8 mg tablet 1 Tablet oral QHS nutren 2.0 per g tube CONTINUOUS pantoprazole (PROTONIX) injection 40 mg intravenous DAILY papain-alpha amylase-cellulase (CLOG ZAPPER) 2-5 mL feeding tube PRN piperacillin-tazobactam 4.5 g in sodium chloride (NS MBP) 100 mL IVPB intravenous Q8H rifAXIMin (XIFAXAN) tablet 550 mg oral BID sevelamer carbonate (RENVELA) powder for oral suspension 800 mg per ng tube Q8H sodium chloride 0.9 % (flush) flush 10 mL intercatheter WEEKLY sodium chloride 0.9 % (flush) flush 10 mL intercatheter PRN sodium chloride 0.9 % (flush) flush 20 mL intercatheter PRN thiamine (VITAMIN B1) tablet 100 mg per ng tube DAILY Pertinent Labs: Lab Results Component Value Date/Time NA 147 (H) 07/09/2023 05:23 K 3.9 07/09/2023 05:23 CO2 20 (L) 07/09/2023 05:23 CL 109 07/09/2023 05:23 BUN 96 (H) 07/09/2023 05:23 CREATININE 3.34 (H) 07/09/2023 05:23 GLUCOSEPOC 154 (H) 07/09/2023 06:06 CALCIUM 9.5 07/09/2023 05:23 PHOS 5.2 (H) 07/09/2023 05:23 MG 2.5 07/09/2023 05:23 Lab Results Component Value Date/Time GLUCOSEPOC 154 (H) 07/09/2023 06:06 GLUCOSEPOC 126 (H) 07/08/2023 23:26 GLUCOSEPOC 152 (H) 07/08/2023 18:34 GLUCOSEPOC 123 (H) 07/08/2023 14:21 GLUCOSEPOC 117 (H) 07/08/2023 06:48 Estimated Nutrition Needs: using 80 kg MSJ x 1.1-1.2 = 5250-1121 kcals/day 1.5 g protein/kg = 120 g protein/day Fluids per primary team Estimated Nutrition Intake: 25% of one documented meal 07/07 100% of TF since 07/05 ASSESSMENT: Pt continues to rely on tube feeds to meet a majority of his estimated nutrition needs. Diet was advanced to dys 2, thin liquids yesterday but unable to take in significant PO d/t confusion still. Will hold off house select trays and supplements until mental status improves. RN in agreement. In themeantime, continue to assist with meals and encourage PO intake. No TF changes needed at this time. Nutrition Risk Level: High (1) MEDICAL NUTRITION THERAPY - UPDATED PLAN Oral Nutrition: - Diet per SEPTIC TANK SERVICER - Will add to house select and will send nutrition supplements once mental status improves - Continue to assist with meals and encourage PO intake Enteral Nutrition - Continuous - Continue as ordered ROMY MARIE RD, CD (Call PAS or use [employer] to page RD covering this unit) * Queenie Augustin, OBDULIO - 07/09/2023 1123 EDT [facility] Rehabilitation Therapy Acute Therapies Main [place] Occupational Therapy Initial Evaluation Note Date of Service: 07/09/2023 Reason for Referral: Evaluate and Treat Precautions: Activity as tolerated [place] SUBJECTIVE: Patient restless with mostly incomprehensible speech. Would verbalize yes/no intermittently when asked questions with repetition Pain: When asked about pain patient indicated yes however was unable to verbalize location of pain OBJECTIVE: Patient Profile: Derrick Hobson is a Unable to assess hand dominant 68 y.o. male admitted on 06/25/2023 secondaryto Shock ([facility]) [R57.9] The patient lives at [address] [place] [address] History of Present Illness/Injury: Per Dr. Stover assessment on 07/08/23: Derrick Hobson is a 68y.o. male with limited medical records available but a PMH significant for AF, COPD, Hep C who presented for epistaxis, then complicated by hypotension, new severe systolic heart failure, AHRF, electrolyte derangements, and oliguria, consistent with cardiogenic shock, shock liver, and acute kidney failure of uncertain etiology at this time. Transferred to [facility] for initiation of dialysis. Overall he is recovering from a mixed cardiogenic/distributive shock picture, now seeing some slow improvements in neuro status, though prognosis remains unclear. Plan to monitor and provide supportive care. Consider discussing goals of care with his family. Liver function and renal function improving and patient remains hemodynamically stable off pressors. Due to cardiogenic shock and degree of reduced EF, will require ischemic evaluation prior to discharge and further titration of GDMT. Not yet stable for discharge due to need for inpatient HD, persistent afib w/ RVR, significant functionaldecline, and resolving coagulopathies. Living Environment/Home Set-up: Need to clarify. Patient unable to report and CM has not completed an assessment per chart. Caregiver Support: Need to clarify Equipment Available: Need to clarify Prior Level of Function: Activities of daily living: Need to clarify Instrumental activities of daily living: Need to clarify Work/Leisure: Need to clarify Medical/Surgical History: Medical history reviewed. Medications: Medications reviewed. Body Functions and Performance Skills: Cardiovascular/Respiratory Systems Function: Vital Signs: Patient vital signs stable and not symptomatic during assessment/treatment Mental Functions: Arousal:Alert Orientation: verbalized yes to hospital and no to home, Likely verbalized derrick, but difficult to fully understand. Date not tested. Memory:Unable to formally assess Attention:Attends to cues with redirect Difficulty attending to directions Following instructions: Able to follow 1 step instructions inconsistently. Followed 1 step direction once (right elbow flexion). Shook head no when asked to move arms Behavioral characteristics: Anxious, Agitation, and Impulsivity/restlessness Communication: incomprehensible speech Unable to participate in call larson instruction despite cues and hand over hand. Sensory Functions: Hearing: hearing appears intact to conversational tones Touch:Unable to formally assess due to : cognition, but light touch appears intact Vision:Reporting 4 when held up 4 and 2 digits Able to track clinician across room, however left gaze preference and did not look to right unless spontaneously despite cues. Neuro musculoskeletal and Movement Related Functions: Range of Motion: PROM WNL Strength: lifting right UE and LE against gravity spontaneously. Left with less spontaneous movement appreciated. Control of Voluntary Movement: impaired. Skin and Related Structure Functions: per patient story PICC Duration PICC Triple Lumen 07/02/23 Brachial vein CAJ Valved Power Inject 6 days Drain Duration Urethral Catheter Latex 16 fr 7 days Wound Duration Wound 06/28/23 Pressure Injury Mid Coccyx 11 days Wound 07/01/23 Other (comment) Anterior;Left;Proximal;Upper 8 days Foam Border Prophylactic Dressing 07/06/23 0545 Mid Sacrum 3 days NG/OG Tube Duration NG/OG Tube Nasogastric 12 fr Right nostril 9 days Hemodialysis catheter Duration Hemodialysis Cath Triple Lumen 06/25/23 Areas of Occupation and Performance Skills: Basic Activities of Daily Living: Anticipate patient requires assist with all ADLs at this time due to cognition/difficulty followinginstructions Mobility: Rolling: maximal assistance Further mobility deferred due to impulsivity and restlessness Instrumental Activities of Daily Living: Not evaluated Informed Consent: The patient consented to occupational therapy evaluation. Interventions completed today: Occupational therapy today at 1115. Total treatment time: 20 minutes. Timed code treatment minutes: 0 Intervention included: No interventions today Patient/Family Education: Topic: Benefits of activity Role of OT Positioning Learner: patient Method: verbal and demonstration Barriers to Learning: cognitive deficits Outcome: reinforcement needed Team Communication: Notified:Nurse By:Face to face communication When:Prior to therapy About:Readiness for therapy Patient status at end of therapy session: The patient was left in:Bed With the: Call larson in reach and Bed alarm on ASSESSMENT: Patient was appropriate for skilled Occupational Therapy evaluation due to epistaxis and now with aprincipal diagnosis of mixed cardiogenic/distributive shock. Occupational Therapy impairments: Cognition, Vision, Strength, Activity tolerance, Pain, Motor control, and Communication These impairments impact the following areas of occupation: Self care, Functional mobility, Home management tasks, and Community integration. Occupational Therapy is medically necessary to: to provide compensatory and remediation training tomaximize the patients independence in ADL's/IADL's. Current status compared to baseline level of function: Below prior level of function. Anticipated rate of progress: unclear at this time. Progress may be affected by the following: strengths: age barriers: acute medical issues, fall risk, level of weakness/debility, and severity of condition/impairments. Discharge recommendations: Sub acute rehab. See plan below for applicable equipment and follow up service recommendations. GOALS: Short Term Goals: N/A Bridge Rigger Goals: 2-4 weeks Patient will be: Min contact assist with Bed mobility. Patient will be: Min contact assist with Toilet transfer. Patient will be: Min contact assist with Self feeding. Patient will be: Modified [place] with call larson use Patient will be oriented x4 in prep for ADLs Patient will tolerate sitting upright for functional task for ~8 minutes with minimal contact assistance Patient will follow x1 step commands 100% of the time PLAN: Intervention: Occupational therapy will be provided by occupational therapist when medically appropriate. Frequency: daily for 1-3 times per week as determined by patient's medical stability, tolerance to activityand progression of functional activities. Intensity: 15-60 minutes per session, Duration: During hos pitalization, Interventions may include:Self care/home management, Therapeutic exercises, Therapeutic activities , Cognitive function intervention, Orthotic management, and Neuromuscular re-education Further Data: Continued evaluation Patient/Family Education: Adaptive ADL's, Adaptive equipment, Discharge planning, Role of OT, and Safety Recommended Discharge Destination: Sub-acute Rehabilitation Recommended Discharge Services: Occupational therapy at rehabilitation facility Recommended Discharge Equipment: To be determined Pager: [phone] Queenie Augustin OT, 07/09/2023, 11:23 * Sandeep Breen MD - 07/09/2023 0954 EDT NEPHROLOGY CONSULT PROGRESS NOTE Admit Date: 06/25/2023 Length of hospital stay: 14 Date of Service: 07/09/23 Attending Physician: Araseli Finnegan MD Reason for Consult: Acute kidney injury ASSESSMENT: Acute kidney injury: ATN in the setting of shock, contrast associated JOS (CT angio on 06/30). Has underlying hep C, COPD, HFrEF, alcohol use disorder and cocaine use disorder. Received CRRT while in the MICU-last received intermittent hemodialysis on 07/05. Pt non-oliguric. No urgent indication for dialysis and will hold hemodialysis at this time. Will continue to monitor for renal recovery. Unsureif he has baseline CKD (last available serum Cr of 0.7mg% in 2014). 2. HFrEF (EF 40% on 06/27). No clinical evidence of pulmonary edema at this time. 3. Hepatic cirrhosis: h/o HepC s/p antiviral therapy. Has hyperbilirubinemia (total beto 10.0mg% on 5/4). AST, ALT improving. Pt on rifaximin. 4. Hypertension: reasonably well controlled on current antihypertensive regimen. Currently on hydralazine 10mg NG TID. RECOMMENDATIONS: Will hold dialysis today and continue to monitor for renal recovery. If no indication for HD tomorrow, will consider plan for DC of Left IJ temporary dialysis catheter. OK to continue sevelamer as currently doing. 24-hour events/Subjective: Resting comfortably. Not oriented. NG tube feeds @ 33cc/h. Denies chest pain/shortness of breath. Objective: Physical Examination: General Appearance:: awake, no distress, HEENT: no pallor, icterus+. Neck: supple. Resp: clear to auscultation bilaterally. CV: The heart rate is regular with a normal S1 S2, no murmur, rub, or gallop. GI: abd soft, non-tender. BS+ Neuro: no focal neurological deficit. Extremities: No lower extremity edema. Lt IJ temporary dialysis catheter + (placed on 06/24). Rt UE PICC line + BP (!) 143/103 (BP Cuff Location: Left arm, BP Patient Position: Semi fowlers) Pulse 100 Temp 36.4 ??C (97.5 ??F) (Axillary) Resp 22 Ht 182.9 cm (72) Wt 60.1 kg (132 lb 7.9 oz) SpO2 94% BMI 17.97 kg/m?? Last 24 hours:07/07 699 - 07/08 658 In: 980 Out: 2175 [Urine:2175] Current 24 hours: Date 07/09/23699 - 07/10/23 0659 Shift 9918-1887 1009-6468 1563-1586 24 Hour Total INTAKE Shift Total(mL/kg) OUTPUT Urine(mL/kg/hr) 400 400 Shift Total(mL/kg) 400(6.7) 400(6.7) Weight (kg) 60.1 60.1 60.1 60.1 Weights: Wt Readings from Last 5 Encounters: 07/09/23 60.1 kg (132 lb 7.9 oz) ROS: 10 point review of system is as above, otherwise negative. Medications: Current Facility-Administered Medications Medication Route Frequency acetaminophen (TYLENOL) solution unit dose cup 495 mg oral Q6H alteplase (CATHFLO ACTIVASE) injection 2 mg intercatheter PRN amino acids-protein hydrolysate (PRO SOURCE NOCARB) packet 60 mL feeding tube BID amiodarone (PACERONE) tablet 400 mg oral DAILY aspirin chewable tablet 81 mg oral DAILY citalopram (CELEXA) tablet 20 mg oral DAILY dextrose 50 % solution 12.5 g intravenous PRN Dimethicone-Zinc Oxide 20-25 % spray,non-aerosol topical BID ferrous sulfate 75 mg/mL (JEAN-IN-ABHISHEK) liquid (15 mg/mL elemental iron) 45 mg per ng tube BID folic acid (FOLVITE) tablet 1 mg per ng tube DAILY Free Water (bolus dose) 200 mL per ng tube Q6H heparin injection 5,000 Units subcutaneous Q12H hydrALAZINE (APRESOLINE) tablet 10 mg per ng tube TID ipratropium-albuteroL (DUONEB) 0.5 mg-3 mg(2.5 mg base)/3 mL nebulizer solution 3 mL nebulization Q4H PRN isosorbide DInitrate (ISORDIL) tablet 10 mg per ng tube TID lactulose (CHRONULAC) 20 gram/30 mL solution 30 mL oral Q4H PRN lidocaine (PF) 10 mg/mL (1 %) injection 2 mg intradermal PRN lidocaine (PF) 10 mg/mL (1 %) injection 5 mg intradermal PRN lidocaine 5 % (LIDODERM) patch 1 Patch transdermal DAILY multivitamin (NEPHROVITE) 0.8 mg tablet 1 Tablet oral QHS nutren 2.0 per g tube CONTINUOUS pantoprazole (PROTONIX) injection 40 mg intravenous DAILY papain-alpha amylase-cellulase (CLOG ZAPPER) 2-5 mL feeding tube PRN piperacillin-tazobactam 4.5 g in sodium chloride (NS MBP) 100 mL IVPB intravenous Q8H rifAXIMin (XIFAXAN) tablet 550 mg oral BID sevelamer carbonate (RENVELA) powder for oral suspension 800 mg per ng tube Q8H sodium chloride 0.9 % (flush) flush 10 mL intercatheter WEEKLY sodium chloride 0.9 % (flush) flush 10 mL intercatheter PRN sodium chloride 0.9 % (flush) flush 20 mL intercatheter PRN thiamine (VITAMIN B1) tablet 100 mg per ng tube DAILY Data Review: Reviewed in [facility], notable for the following: Recent Labs 05/04/24 0554 07/08/23 0631 07/08/23 1716 CREATININE 3.06* 3.55* -- BUN 73* 90* -- NA 141 149* 148* K 3.4* 3.0* 3.0* CL 103 106 108 CO2 27 26 24 Recent Labs 07/07/23 0554 07/08/23 0631 07/09/23 0523 PHOS 4.3 5.4* 5.2* Recent Labs 07/07/23 0555 07/08/23 0632 07/09/23 0523 HGB 7.2* 7.8* 7.7* Sandeep Breen MD Nephrology Attending * Araseli Finnegan MD - 07/09/2023 0909 EDT Medicine Progress Note Service Date: 07/09/2023 Admit Date: 06/25/2023 13:23 Reason for Admission: 68 y.o. male admitted with a chief complaint of epistaxis and now with a principal diagnosis of mixed cardiogenic/distributive shock. 24 Hour Events: NAEO Subjective/Objective Subjective Pt seen at bedside this AM. Is minimally interactive with care team and appears to become agitated with continued questioning. Review of Systems Unable to obtain due to patient mental status Objective Vital Signs Temp: [36.3 ??C (97.3 ??F)-36.6 ??C (97.9 ??F)] , Heart Rate: [98 BPM-117 BPM] , Resp: [22] , BP: (123-152)/(80-107) , SpO2: [90 %-95 %] Physical Exam Gen: NAD, awake, alert, oriented; asleep but awakens somewhat to voice, difficult to assess orientation today, patient acknowledging our presence but not answering questions with understandable speech Skin: Warm, dry, intact on visible surfaces with no rashes or lesions HEENT: Atraumatic, conjunctivae clear and non-icteric, pharynx with no exudates or erythema Cardiac: Regular rate and rhythm, no murmurs/rubs/gallops, +S1/S2 Resp: Lung sounds clear in all lung mckee, no wheezes/crackles Abd: Soft, non-tender, non-distended, no visible lesions or scars, no hepatosplenomegaly Extr: No swelling/erythema, ecchymosis on LT inner thigh, no apparent limited ROM Neuro: Awake and oriented, diffuse 2/5 strength throughout though exam largely limited by patient unwillingness to participate; unable to assess orientation on my exam Psych: Pleasant affect Medications Reviewed Labs Reviewed MELD 3.0: 31 at 07/09/2023 5:23 MELD-Na: 30 at 07/09/2023 5:23 Calculated from: Serum Creatinine: 3.55 mg/dL (Using max of 3 mg/dL) at 07/08/2023 6:31 Serum Sodium: 148 mmol/L (Using max of 137 mmol/L) at 07/08/2023 17:16 Total Bilirubin: 10.0 mg/dL at 07/07/2023 5:54 Serum Albumin: 3.0 g/dL at 07/07/2023 5:54 INR(ratio): 1.3 Ratio at 07/09/2023 5:23 Age at listing (hypothetical): 68 years Sex: Male at 07/09/2023 5:23 Imaging: US LOWER VENOUS DUPLEX Result Date: 07/07/2023 Right lower extremity imaged from the external iliac vein to the popliteal vein. Patient declined further exam. No sonographic evidence of deep venous thrombosis in the right lower extremity above the knee. [id number] US ABDOMEN LIMITED Result Date: 07/06/2023 Cholelithiasis. No evidence of cholecystitis. Right pleural effusion. [id number] Assessment/Plan Assessment Derrick Hobson is a 68 y.o. male with limited medical records available but a PMH significant for AF, COPD, Hep C, who presented for epistaxis and course complicated by hypotension, new severe systolic heart failure, AHRF, electrolyte derangements, and oliguria, consistent with cardiogenic shock, shock liver, and acute kidney failure of uncertain etiology. Transferred to [facility] for initiation of dialysis. Overall he is recovering from a mixed cardiogenic/distributive shock picture, now seeing some slow improvements in neuro status, though prognosis remains unclear. Plan #Acute kidney failure, suspected ATN - resolving #Anasarca (improved) #Hyperphosphatemia L IJ dilaysis line in place. iHD with normalization of electrolytes. Now with return of some renal funtion with good UOP but still requiring HD - Tums added as phos binder - Daily phos level - Goal fluid status net even - Avoid nephrotoxins - Trend BMP daily - Strict I/O #Hypokalemia #Hypernatremia - Free water flushes - recheck BMP #Severe systolic heart failure (EF 20-25% --> 40%) #Mixed Cardiogenic/Distributive Shock (Resolved) Off pressors and inotropes since 06/26. EF improved significantly from 20% on admission to 40% on 06/27. Plan to start introducing GDMT. - HFrEF with regional wall motion abnormalities - will need ischemic workup prior to discharge - Goal SBP 120-160 - Cardiology consulted, appreciate recs (now signed off) - isosordil 10mg PO TID, hydralazine 10g PO TID - Goal HR <140 - ideally obtain repeat assessment of LVEF when no longer in RVR - ischemic eval with LHC prior to discharge (no urgency to study and the timing will be dictated byhis clinical improvement) - Will require MRA for GDMT at some point - Currently euvolemic, no role for lasix - start metoprolol tartrate 12.5 mg PO BID #Persistent Afib (currently in RVR): CHADs-VASc HAS-BLED - Telemetry - metop as above - Hold AC for femoral hematoma - Amio 400 mg PO daily starting 06/29 - Goal HR < 140 #Leukocytosis #Acute hypoxic respiratory failure now with concern for possible HAP Extubated to 3L NC on 07/02. Now on RA. S/p CTX x7 d (06/26 - ) for empiric CAP coverage though overall low suspicion - zosyn q12 hours for HAP concern - new leukocytosis, new onset cough, mucous production #Candiduria: not treating per ID unless clinical worsening in which case will treat with fluconazole #COPD: - 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 duonebs PRN - Maintain SpO2 > 88% #Decompensated Cirrhosis (ascites, jaundice) #Elevated Liver Chemistries 2/2 Shock Liver #Hx Hepatitis C Virus s/p treatment Unclear if pt has hx of liver injury. Current picture c/w resolving shock liver, though on admission AST was significant greater than ALT. Hyperbilirubinemia may be in part due to hemolysis of blood in hematoma. - Daily CMP - Lasix, josey as above - Will require EGD outpatient - Referral to hepatology clinic OP #Microcytic anemia, Thrombocytopenia #L femoral hematoma #Coagulopathy/DIC (resolving) Hematoma stable thus far, no e/o ongoing bleed. Chronic JANUSZ excacerbated by acute blood loss anemiaiso DIC/hemolysis. Pattern of rising PTT, PT, D-dimer and a low fibrinogen is consistent with DIC, possibly complicated by suspected chronic liver disease though difficult to evaluate given lack of previous labs. Will continue to monitor for signs of active bleeding and repeat coags with or withoutTEG in the event of further bleeding. - If Hb drops, get CTA and consult IR - Daily CBC - Consider Fe supplementation prior to d/c - Daily PT/PTT #Acute Toxic/Metabolic Encephalopathy #Concern for anoxic brain injury Concern for hypoactive ICU delirium vs an anoxic/hypoglycemic brain injury. Also treating empirically for hepatic encephalopathy though much less likely as he is believed to have acute liver failure rather than cirrhosis. MRI without evidence of anoxic or hypoglycemic brain injury - lactulose, rifaximin - sedation/anxiety management with haldol, fentanyl PRN over propofol - Goals of care conversation with family. #Critical Illness Myopathy #Malnutrition - Nutren tube feeds 33 cc/hr per Nutrition - bowel regimen PRN - PT/OT - SEPTIC TANK SERVICER - Remove NG once taking PO #Polysubstance Use Disorder - known hx cocaine use - ? EtOH use disorder - unclear if hx opioid use CHRONIC/STABLE/RESOLVED: #HTN: metop restarted for AFib #Mood disorder: 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 citalopram #Facial twitches: resolved # ?Neuropathic pain: Hold 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 Cyclobenzaprine 10mg daily, Gabapentin 800mg TID with liver/kidney injury # Intermittent hypoglycemia: resolved CHECKLIST: Admission status: inpatient d/t renal impairment, weakness, and resolving shock VTE Prophylaxis: heparin 5K units BID Consults: n/a Code Status: Full Diet: Tube feeds, dysphagia 2 diet per SEPTIC TANK SERVICER Discharge Plan: Will likely require physical rehab givendegree of weakness Snehal Coffey MD PGY-1 #[id number] Attestation: Pt seen and examined; I have reviewed Dr. Coffey's note and agree with her findings, A and P as outlined above, with my additions in blue. I have personally reviewed the laboratory and radiology results. I have personally spoken with housestaff, pharmacy. DOS 07/09/2023. Araseli Finnegan MD, MPH * Cande Stover MD - 07/08/2023 1745 EDT Medicine Progress Note Service Date: 07/08/2023 Admit Date: 06/25/2023 13:23 Reason for Admission: 68 y.o. male admitted with a chief complaint of epistaxis and now with a principal diagnosis of mixed cardiogenic/distributive shock. 24 Hour Events: NAEO Subjective/Objective Subjective Patient noting pain and back when asked if anything was bothering him. Speaking in longer phrases but remains unable to speak in full sentences. Patient largely otherwise non-participatory in interview. Asking for ice chips. Review of Systems A ten point review of systems was performed and was negative except for pertinent positives noted in the HPI Objective Vital Signs Temp: [36.6 ??C (97.8 ??F)-37.1 ??C (98.7 ??F)] , Heart Rate: [106 BPM-128 BPM] , Resp: [19-22] , BP: (135-169)/(93-107) , SpO2: [92 %-94 %] Physical Exam Gen: NAD, awake, alert, oriented Skin: Warm, dry, intact on visible surfaces with no rashes or lesions HEENT: Atraumatic, conjunctivae clear and non-icteric, pharynx with no exudates or erythema Cardiac: Regular rate and rhythm, no murmurs/rubs/gallops, +S1/S2 Resp: Lung sounds clear in all lung mckee, no wheezes/crackles Abd: Soft, non-tender, non-distended, no visible lesions or scars, +bowel sounds, no hepatosplenomegaly Extr: No swelling/erythema, no apparent limited ROM Neuro: Awake and oriented, diffuse 2/5 strength throughout though exam largely limited by patient unwillingness to participate Psych: Pleasant affect Medications Reviewed Labs Reviewed Imaging: US LOWER VENOUS DUPLEX Result Date: 07/07/2023 Right lower extremity imaged from the external iliac vein to the popliteal vein. Patient declined further exam. No sonographic evidence of deep venous thrombosis in the right lower extremity above the knee. [id number] US ABDOMEN LIMITED Result Date: 07/06/2023 Cholelithiasis. No evidence of cholecystitis. Right pleural effusion. [id number] Assessment/Plan Assessment Derrick Hobson is a 68 y.o. male with limited medical records available but a PMH significant for AF, COPD, Hep C who presented for epistaxis, then complicated by hypotension, new severe systolicheart failure, AHRF, electrolyte derangements, and oliguria, consistent with cardiogenic shock, shock liver, and acute kidney failure of uncertain etiology at this time. Transferred to [facility] forinitiation of dialysis. Overall he is recovering from a mixed cardiogenic/distributive shock picture, now seeing some slow improvements in neuro status, though prognosis remains unclear. Plan to monitor and provide supportive care. Consider discussing goals of care with his family. Liver function and renal function improving and patient remains hemodynamically stable off pressors. Due to cardiogenic shock and degree of reduced EF, will require ischemic evaluation prior to discharge and further titration of GDMT. Not yet stable for discharge due to need for inpatient HD, persistent afib w/ RVR, significant functionaldecline, and resolving coagulopathies. Plan #Acute kidney failure, suspected ATN - resolving #Anasarca (improved) #Hyperphosphatemia L IJ dilaysis line in place. iHD with normalization of electrolytes. Now with return of some renal funtion with good UOP still requiring HD. - Tums added as phos binder - Daily phos - CTM; appreciate nutrition recs - Transitioned from CRRT to intermittent HD 06/28. - Nephrology consulted, appreciate recs - Goal ne even - Avoid nephrotoxins - Trend BMP daily - Strict I/O #Hypokalemia #Hypernatremia - D5 100 mL x5 hrs - Free water flushes - recheck BMP #Severe systolic heart failure (EF 20-25% --> 40%) #Mixed Cardiogenic/Distributive Shock (Resolved) Off pressors and inotropes since 06/26. EF improved significantly from 20% on admission to 40% on 06/27. Plan to start introducing GDMT. - HFrEF with regional wall motion abnormalities - will need ischemic workup prior to discharge - Goal SBP 120-160 - Cardiology consulted, appreciate recs (now signed off) - isosordil 10mg PO TID, hydralazine 10g PO TID - Goal HR <140 - ideally obtain repeat assessment of LVEF when no longer in RVR - ischemic eval with LHC prior to discharge (no urgency to study and the timing will be dictated byhis clinical improvement) - Holding metoprolol iso recent cardiogenic shock, consider restarting for afib w/ RVR and GDMT - Will require MRA for GDMT at some point - Currently euvolemic, no role for lasix #Persistent Afib (currently in RVR): CHADs-VASc HAS-BLED - Telemetry - Hold 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 metop iso recent shock - Hold AC for femoral hematoma - Amio 400 mg PO daily starting 06/29 - Goal HR < 140 #Leukocytosis #Acute hypoxic respiratory failure now with concern for possible HAP Extubated to 3L NC on 07/02. Now on RA. S/p CTX x7 d (06/26 - ) for empiric CAP coverage though overall low suspicion - zosyn q12 hours for HAP concern - new leukocytosis, new onset cough, mucous production - UA with lydia - Consider treating for #COPD: - 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 duonebs PRN - Maintain SpO2 > 88% #Decompensated Cirrhosis (ascites, jaundice) #Elevated Liver Chemistries 2/2 Shock Liver #Hx Hepatitis C Virus s/p treatment Unclear if pt has hx of liver injury. Current picture c/w resolving shock liver, though on admission AST was significant greater than ALT. Hyperbilirubinemia may be in part due to hemolysis of blood in hematoma. - Daily CMP - Lasix, josey as above - Will require EGD outpatient - Referral to hepatology clinic OP MELD 3.0: 31 at 07/08/2023 6:31 MELD-Na: 30 at 07/08/2023 6:31 Calculated from: Serum Creatinine: 3.55 mg/dL (Using max of 3 mg/dL) at 07/08/2023 6:31 Serum Sodium: 149 mmol/L (Using max of 137 mmol/L) at 07/08/2023 6:31 Total Bilirubin: 10.0 mg/dL at 07/07/2023 5:54 Serum Albumin: 3.0 g/dL at 07/07/2023 5:54 INR(ratio): 1.3 Ratio at 07/08/2023 6:31 Age at listing (hypothetical): 68 years Sex: Male at 07/08/2023 6:31 #Microcytic anemia, Thrombocytopenia #L femoral hematoma #Coagulopathy/DIC (resolving) Hematoma stable thus far, no e/o ongoing bleed. Chronic JANUSZ excacerbated by acute blood loss anemiaiso DIC/hemolysis. Pattern of rising PTT, PT, D-dimer and a low fibrinogen is consistent with DIC, possibly complicated by suspected chronic liver disease though difficult to evaluate given lack of previous labs. Will continue to monitor for signs of active bleeding and repeat coags with or withoutTEG in the event of further bleeding. - If Hb drops, get CTA and consult IR - Hold heparin - Daily CBC - Consider Fe supplementation prior to d/c - Daily PT/PTT - S/p 1 unit FFP 06/25 - S/p 2x Vit K 10mg - hold further doses with improving coags #Acute Toxic/Metabolic Encephalopathy #Concern for anoxic brain injury Now off sedation and extubated, slowly improving in his mental status and ability to communicate, however prognosis is guarded. Concern for hypoactive ICU delirium vs an anoxic/hypoglycemic brain injury. Also treating empirically for hepatic encephalopathy though much less likely as he is believed to have acute liver failure rather than cirrhosis . - MRI without evidence of anoxic or hypoglycemic brain injury - lactulose, rifaximin - sedation/anxiety management with haldol, fentanyl PRN over propofol - Goals of care conversation with family. #Critical Illness Myopathy #Malnutrition - Trickle tube feeds - nutren 20 --> 40cc/hr - bowel regimen PRN - S/p thiamine 500mg IV TID x3 days - PT/OT - SEPTIC TANK SERVICER - Remove NG once taking PO #Polysubstance Use Disorder - known hx cocaine use - ? EtOH use disorder - unclear if hx opioid use CHRONIC/STABLE/RESOLVED: #HTN: 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 metop held #Mood disorder: Restart 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 citalopram #Facial twitches (resolved): unilateral facial twitches observed by nursing staff on admission. EEGnegative for epileptiform activity # ?Neuropathic pain: Hold 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 Cyclobenzaprine 10mg daily, Gabapentin 800mg TID with liver/kidney injury # Intermittent hypoglycemia - resolved: Unclear etiology of this hypoglycemia, could be reflective of known hepatic dysfunction although would havve expected it to be worse while he was in shock liver and improving now. Initiated some workup with serum AM cortisol (normal); if he continues to be hypoglycemic with increased tube feeds, will consider further workup. CHECKLIST: Admission status: inpatient d/t renal impairment, weakness, and resolving shock VTE Prophylaxis: held iso DIC and large L femoral hematoma Consults: n/a Code Status: Full Diet: Tube feeds, oral intake pending SEPTIC TANK SERVICER consult Discharge Plan: Will likely require physical rehab given degree of weakness Admission status: Inpatient admission due to anticipated duration of hospitalization is two midnights or greater due to Shock. Cande Stover MD Internal Medicine, PGY-2 07/08/2023 17:45 Associated attestation - Can Oneill MD - 07/08/2023 4907 EDT I interviewed and examined the patient. I have personally reviewed interval events, laboratory data, and imaging. I discussed the case with the inpatient resident team. I agree with findings and planof care as documented by the resident (or have edited in Blue). Can Oneill MD * Sanya Arciniega - 07/07/2023 1249 EDT Social Work Case Management Brief Progress Note Weekend CM attempted to connect with Pt, but Pt mentation still disallows conversation. Will attempt again, and/or connect with e-contact. Sanya Arciniega Pest Control Chemical Technician II Per-Lucy [email or web address] * Denisse Drake MD - 07/07/2023 1108 EDT Medicine Progress Note Service Date: 07/07/2023 Admit Date: 06/25/2023 13:23 Reason for Admission: 68 y.o. male admitted with a chief complaint of epistaxis and now with a principal diagnosis of mixed cardiogenic/distributive shock. 24 Hour Events: - NAEO Subjective/Objective Subjective When asked if he had any concerns, patient stated he felt good. Shook head yes/no in response to some questions. Patient largely non-participatory in interview. Review of Systems A ten point review of systems was performed and was negative except for pertinent positives noted in the HPI Objective Vital Signs Temp: [36.3 ??C (97.3 ??F)-37.3 ??C (99.2 ??F)] , Heart Rate: [110 BPM-128 BPM] , Resp: [16-24] , BP: (138-161)/(95-111) , SpO2: [92 %-94 %] Physical Exam Gen: NAD, awake, alert, oriented Skin: Warm, dry, intact on visible surfaces with no rashes or lesions HEENT: Atraumatic, conjunctivae clear and non-icteric, pharynx with no exudates or erythema Cardiac: Regular rate and rhythm, no murmurs/rubs/gallops, +S1/S2 Resp: Lung sounds clear in all lung mckee, no wheezes/crackles Abd: Soft, non-tender, non-distended, no visible lesions or scars, +bowel sounds, no hepatosplenomegaly Extr: No swelling/erythema, no apparent limited ROM Neuro: Awake and oriented, diffuse 2/5 strength throughout though exam largely limited by patient unwillingness to participate Psych: Pleasant affect Medications Reviewed Labs Reviewed Imaging: Reviewed Assessment/Plan Assessment Derrick Hobson is a 68 y.o. male with limited medical records available but a PMH significant for AF, COPD, Hep C who presented for epistaxis, then complicated by hypotension, new severe systolicheart failure, AHRF, electrolyte derangements, and oliguria, consistent with cardiogenic shock, shock liver, and acute kidney failure of uncertain etiology at this time. Transferred to [facility] forinitiation of dialysis. Overall he is recovering from a mixed cardiogenic/distributive shock picture, now seeing some slow improvements in neuro status, though prognosis remains unclear. Plan to monitor and provide supportive care. Consider discussing goals of care with his family. Liver function and renal function improving and patient remains hemodynamically stable off pressors. Due to cardiogenic shock and degree of reduced EF, will require ischemic evaluation prior to discharge and further titration of GDMT. Not yet stable for discharge due to need for inpatient HD, persistent afib w/ RVR, and resolving coagulopathies. Plan #Acute kidney failure, suspected ATN - resolving #Anasarca (improved) #Hyperphosphatemia L IJ dilaysis line in place. iHD with normalization of electrolytes. Now with return of some renal funtion with good UOP still requiring HD. - Tums added as phos binder - Daily phos - CTM; appreciate nutrition recs - Transitioned from CRRT to intermittent HD 06/28. - Nephrology consulted, appreciate recs - Goal ne even - Avoid nephrotoxins - Trend BMP daily - Strict I/O #Severe systolic heart failure (EF 20-25% --> 40%) #Mixed Cardiogenic/Distributive Shock (Resolved) Off pressors and inotropes since 06/26. EF improved significantly from 20% on admission to 40% on 06/27. Plan to start introducing GDMT. - HFrEF with regional wall motion abnormalities - will need ischemic workup prior to discharge - Goal SBP 120-160 - Cardiology consulted, appreciate recs (now signed off) - isosordil 10mg PO TID, hydralazine 10g PO TID - Goal HR <140 - ideally obtain repeat assessment of LVEF when no longer in RVR - ischemic eval with LHC prior to discharge (no urgency to study and the timing will be dictated byhis clinical improvement) - Holding metoprolol iso recent cardiogenic shock, consider restarting for afib w/ RVR and GDMT - Will require MRA for GDMT at some point - Currently euvolemic, no role for lasix #Persistent Afib (currently in RVR): CHADs-VASc HAS-BLED - Telemetry - Hold 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 metop iso recent shock - Hold AC for femoral hematoma - Amio 400 mg PO daily starting 06/29 - Goal HR < 140 #Acute hypoxic respiratory failure now with concern for possible HAP Extubated to 3L NC on 07/02. Now on RA. S/p CTX x7 d (06/26 - ) for empiric CAP coverage though overall low suspicion - zosyn q12 hours for HAP concern - new leukocytosis, new onset cough, mucous production #COPD: - 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 duonebs PRN - Maintain SpO2 > 88% #Decompensated Cirrhosis (ascites, jaundice) #Elevated Liver Chemistries 2/2 Shock Liver #Hx Hepatitis C Virus s/p treatment Unclear if pt has hx of liver injury. Current picture c/w resolving shock liver, though on admission AST was significant greater than ALT. Hyperbilirubinemia may be in part due to hemolysis of blood in hematoma. - Daily CMP - Lasix, josey as above - Will require EGD outpatient - Referral to hepatology clinic OP MELD 3.0: 30 at 07/07/2023 5:54 MELD-Na: 28 at 07/07/2023 5:54 Calculated from: Serum Creatinine: 3.06 mg/dL (Using max of 3 mg/dL) at 07/07/2023 5:54 Serum Sodium: 141 mmol/L (Using max of 137 mmol/L) at 07/07/2023 5:54 Total Bilirubin: 10.0 mg/dL at 07/07/2023 5:54 Serum Albumin: 3.0 g/dL at 07/07/2023 5:54 INR(ratio): 1.2 Ratio at 07/07/2023 5:54 Age at listing (hypothetical): 68 years Sex: Male at 07/07/2023 5:54 #Microcytic anemia, Thrombocytopenia #L femoral hematoma #Coagulopathy/DIC (resolving) Hematoma stable thus far, no e/o ongoing bleed. Chronic JANUSZ excacerbated by acute blood loss anemiaiso DIC/hemolysis. Pattern of rising PTT, PT, D-dimer and a low fibrinogen is consistent with DIC, possibly complicated by suspected chronic liver disease though difficult to evaluate given lack of previous labs. Will continue to monitor for signs of active bleeding and repeat coags with or withoutTEG in the event of further bleeding. - If Hb drops, get CTA and consult IR - Hold heparin - Daily CBC - Consider Fe supplementation prior to d/c - Daily PT/PTT - S/p 1 unit FFP 06/25 - S/p 2x Vit K 10mg - hold further doses with improving coags #Acute Toxic/Metabolic Encephalopathy #Concern for anoxic brain injury Now off sedation and extubated, slowly improving in his mental status and ability to communicate, however prognosis is guarded. Concern for hypoactive ICU delirium vs an anoxic/hypoglycemic brain injury. Also treating empirically for hepatic encephalopathy though much less likely as he is believed to have acute liver failure rather than cirrhosis . - MRI without evidence of anoxic or hypoglycemic brain injury - lactulose, rifaximin - sedation/anxiety management with haldol, fentanyl PRN over propofol - Goals of care conversation with family. #Critical Illness Myopathy #Malnutrition - Trickle tube feeds - nutren 20 --> 40cc/hr - bowel regimen PRN - S/p thiamine 500mg IV TID x3 days - PT/OT - SEPTIC TANK SERVICER - Remove NG once taking PO #Polysubstance Use Disorder - known hx cocaine use - ? EtOH use disorder - unclear if hx opioid use CHRONIC/STABLE/RESOLVED: #HTN: 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 metop held #Mood disorder: Restart 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 citalopram #Facial twitches (resolved): unilateral facial twitches observed by nursing staff on admission. EEGnegative for epileptiform activity # ?Neuropathic pain: Hold 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 Cyclobenzaprine 10mg daily, Gabapentin 800mg TID with liver/kidney injury # Intermittent hypoglycemia - resolved: Unclear etiology of this hypoglycemia, could be reflective of known hepatic dysfunction although would havve expected it to be worse while he was in shock liver and improving now. Initiated some workup with serum AM cortisol (normal); if he continues to be hypoglycemic with increased tube feeds, will consider further workup. CHECKLIST: Admission status: inpatient d/t renal impairment, weakness, and resolving shock VTE Prophylaxis: held iso DIC and large L femoral hematoma Consults: n/a Code Status: Full Diet: Tube feeds, oral intake pending SEPTIC TANK SERVICER consult Discharge Plan: Will likely require physical rehab given degree of weakness Admission status: Inpatient admission due to anticipated duration of hospitalization is two midnights or greater due to Shock. DENISSE DRAKE MD Internal Medicine, PGY-2 07/07/2023 11:08 Associated attestation - Can Oneill MD - 07/08/2023 1811 EDT I interviewed and examined the patient on 07/07/23. I have personally reviewed interval events, laboratory data, and imaging. I discussed the case with the inpatient resident team. I agree with findings and plan of care as documented by the resident (or have edited in Blue). Can Oneill MD * Danielle Garcia [facility] - 07/07/2023 7008 EDT Speech-Language Pathology Clinical Swallow Evaluation [employer] Diagnosis: Dysphagia, unspecified difficulty: Medical Diagnosis: Mixed cardiogenic/distributive shock Date of Onset: 06/25/23 Date of Referral: 06/05/23 Start Time: 1000 Total Therapy minutes: 20 minute(s) SUBJECTIVE: Oh yeah? - per patient in response to encouragement by this clinician on his swallowing progress. OBJECTIVE: History: Per MD assessment - Derrick oHbson is a 68 y.o. male with limited medical records available but a PMH significant for AF, COPD, Hep C who presented for epistaxis, then complicated by hypotension, new severe systolic heart failure, AHRF, electrolyte derangements, and oliguria, consistent with cardiogenic shock, shock liver, and acute kidney failure of uncertain etiology at this time. Transferred to [facility] for initiation of dialysis. Overall he is recovering from a mixed cardiogenic/distributive shock picture, now seeing some slow improvements in neuro status, though prognosis remains unclear. Plan to monitor and provide supportive care. Consider discussing goals of care with his family. Liver function and renal function improving and patient remains hemodynamically stable off pressors. Due to cardiogenic shock and degree of reduced EF, will require ischemic evaluation prior to discharge and further titration of GDMT. Not yet stable for discharge due to need for inpatient HD, persistent afib w/ RVR, and resolving coagulopathies. PMH: History reviewed. No pertinent past medical history. Current Diet: NG Diet prior to admission: Unknown, suspect regular diet Current Medications: Current Facility-Administered Medications Medication Dose Route Frequency Provider Last Rate Last Admin acetaminophen (TYLENOL) solution unit dose cup 650 mg 650 mg oral Q6H PRN Khushi Young MD alteplase (CATHFLO ACTIVASE) injection 2 mg 2 mg intercatheter PRN Alec Rizo MD amino acids-protein hydrolysate (PRO SOURCE NOCARB) packet 60 mL 60 mL feeding tube BID Khushi Young MD 60 mL at 07/06/23 2141 amiodarone (PACERONE) tablet 400 mg 400 mg oral DAILY Davian Murrell MD 400 mg at 07/06/23 1455 aspirin chewable tablet 81 mg 81 mg oral DAILY Alec Rizo MD 81 mg at 07/06/23 1549 citalopram (CELEXA) tablet 20 mg 20 mg oral DAILY Cande Stover MD 20 mg at 07/06/23 1455 dextrose 50 % solution 12.5 g 12.5 g intravenous PRN Khushi Young MD 12.5 g at 07/03/23 0947 Dimethicone-Zinc Oxide 20-25 % spray,non-aerosol topical BID Charanjit Taylor MD 1 g at 07/06/232199 ferrous sulfate 75 mg/mL (JEAN-IN-ABHISHEK) liquid (15 mg/mL elemental iron) 45 mg 45 mg per ng tube BID Khushi Young MD 45 mg at 07/06/232145 folic acid (FOLVITE) tablet 1 mg 1 mg per ng tube DAILY Leonor Zamudio MD MPH 1 mg at 07/05/23 0813 heparin injection 5,000 Units 5,000 Units subcutaneous Q12H Caned Stover MD 5,000 Units at 07/06/232140 hydrALAZINE (APRESOLINE) tablet 10 mg 10 mg per ng tube TID Khushi Young MD 10 mg at 07/06/232139 ipratropium-albuteroL (DUONEB) 0.5 mg-3 mg(2.5 mg base)/3 mL nebulizer solution 3 mL 3 mL nebulization Q4H PRN Roque Correa MD 3 mL at 06/28/23 0814 isosorbide DInitrate (ISORDIL) tablet 10 mg 10 mg per ng tube TID Khushi Young MD 10 mg at 07/06/232139 lactulose (CHRONULAC) 20 gram/30 mL solution 30 mL 30 mL oral Q4H PRN Khushi Young MD lidocaine (PF) 10 mg/mL (1 %) injection 2 mg 2 mg intradermal PRN Alec Rizo MD lidocaine (PF) 10 mg/mL (1 %) injection 5 mg 5 mg intradermal PRN Alec Rizo MD 5 mg at 07/02/23 174 lidocaine 5 % (LIDODERM) patch 1 Patch 1 Patch transdermal DAILY Khushi Young MD Patch Removed at 07/05/232137 multivitamin (NEPHROVITE) 0.8 mg tablet 1 Tablet 1 Tablet oral QHS Khushi Young MD 1 Tablet at 07/06/232139 nutren 2.0 per g tube CONTINUOUS Kael Denny MD 33 mL/hr at 07/07/236 New Bag at pantoprazole (PROTONIX) injection 40 mg 40 mg intravenous DAILY Alec Rizo MD 40 mg at 07/06/23 1500 papain-alpha amylase-cellulase (CLOG ZAPPER) 2-5 mL 2-5 mL feeding tube PRN Khushi Young MD piperacillin-tazobactam 4.5 g in sodium chloride (NS MBP) 100 mL IVPB 4.5 g intravenous Q12H Cande Stover MD 4.5 g at 07/06/23 1835 rifAXIMin (XIFAXAN) tablet 550 mg 550 mg oral BID Leonor Zamudio MD MPH 550 mg at 07/06/23 2140 sevelamer carbonate (RENVELA) powder for oral suspension 800 mg 800 mg per ng tube Q8H Leonor Zamudio MD MPH 800 mg at 07/06/23 2353 sodium chloride 0.9 % (flush) flush 10 mL 10 mL intercatheter WEEKLY Alec Rizo MD 10 mL at 07/02/23 2159 sodium chloride 0.9 % (flush) flush 10 mL 10 mL intercatheter PRN Alec Rizo MD sodium chloride 0.9 % (flush) flush 20 mL 20 mL intercatheter PRN Alce Rizo MD thiamine (VITAMIN B1) tablet 100 mg 100 mg per ng tube DAILY Leonor Zamudio MD MPH 100 mg at 07/05/23 0813 Current Status: Cognitive Status: Patient was confused during evaluation. Respiratory Status: Pt had an acute desaturation yesterday mid to high 80's, concern for mucus plugging. Per nursing, breathing improved following cough. During exam: O2: 90-92% Increased WOB baseline Clinical Swallow Evaluation: Patient/Family: consented to completing the clinical bedside swallow exam. Oral Peripheral Motor Exam: Face: Face was symmetrical with adequate strength and range of motion. Lips: Adequate labial strength and range of motion. Tongue: Adequate lingual strength, range of motion and coordination. Velum: Unable to view during the evaluation. Dentition: Patient is edentulous. Laryngeal Excursion: Within functional limits with anterior tipping upon palpation. Speech Intelligibility: reduced Vocal Quality: Patient presents with a dry, hoarse vocal quality. Cough: did not assess Wheezy breath sounds at baseline Positioning: Seen at bedside for evaluation. Consistencies Tested: was assessed with ice chips, thin liquid, puree consistencies. Methods of Delivery: All items were administered by SE[employer]IC TANK SERVICER using a spoon, cup Oral Phase Findings: Patient presents with oral phase deficits characterized by : Mild bolus holding Tongue pumping prior to a-p transfer Pharyngeal Phase: Patient presents with pharyngeal phase deficits as suggested by Adequate height of laryngeal excursion once the swallow was initiated Increased WOB with swallowing, impacting respiratory coordination to protect airway during swallowing Esophageal Phase: No over signs Compensatory Strategies: Modified solids Monitoring of mentation and safe swallow behaviors - given confusion Patient/Family Education/Training: Patient/Family education and training was completed today including the role of Speech-Language Pathology and results of today's exam/recommendations. Learner: patient Method of Education: Verbal Barriers to Learning/Education: patient's inability to learn/carry over information at this time Patient: needs further instruction and education Family: was not present Assessment /Clinical Impressions: is a 68 y.o. male - per MDnote - with limited medical records available but a PMH significant for AF, COPD, Hep C who presented for epistaxis, then complicated by hypotension, new severe systolic heart failure, AHRF, electrolyte derangements, and oliguria, consistent with cardiogenic shock, shock liver, and acute kidney failure of uncertain etiology at this time. Transferred to [facility] for initiation of dialysis. Overall he is recovering from a mixed cardiogenic/distributive shockpicture, now seeing some slow improvements in neuro status, though prognosis remains unclear. Plan to monitor and provide supportive care. Consider discussing goals of care with his family. A clinical swallow evaluation was completed today by Speech Language Pathology secondary to concerns for oropharyngeal dysphagia, and risk of laryngeal penetration/aspiration and readiness to upgradeto PO intake. currently presents with a mild oral phase dysphagia as characterized by slowed responses and reduced coordination in the oral phase. He exhibited adequate height of laryngealexcursion once the swallow was initiated. Over the course of PO trials he showed increased WOB withswallowing, impacting respiratory coordination. No signs of aspiration were present, however moderate aspiration risks are present over the course of a meal, on a regular diet. Risks will be minimized with a puree/Dys 2 diet and care with eating. Thin liquids are ok. Prognosis for improvement in swallow function is judged to be good if pt continues to improve in respiratory status and mentation. GOALS: Pt will tolerate a Dys2 and thin liquid diet without signs of aspiration Plan /Recommendations: Diet: Dysphagia 2, geriatric regimen Thin liquids Work with nutrition to monitor PO intake and wean off tube feeds For now, given pt's reduced endurance and increased WOB with swallowing, continue with KO tube feeds as primary source of nutrition Medications: Whole with thin liquids Feeding/Eating Strategies: Smaller more frequent meals Assistance and monitoring with eating given patient's confusion Active oral care [employer] to follow up : Yes, will follow up under a consult model of care Next [employer]ER session: Confirm tolerance of diet and advance as appropriate Anticipated [employer]ER needs at discharge from Acute Medical Setting:To be determined Recommended Discharge Setting based on current status: To be determined Referrals: continue to work with Nutrition services Danielle Garcia CCC-[facility] [facility] 07/07/2023 7:52 [facility] [facility] [facility] Acute Care Pgr #[id number] * Cande Stover MD - 07/06/20232000 EDT Brief Progress Note: Called to bedside at ~ 15:00 for episode of acute desaturation. Patient was stable on room air (with SpO2 > 92%) throughout the morning. In the afternoon, patient had acute onset hypoxia to mid tohigh 80's. Placed on 6L NC without resolution of hypoxia, SpO2 increased to ~88% with 6L. Pressuresstable. Worsening tachycardia with monitor noting ongoing afib w/ RVR to 130's. Exhibited increasedWOB. Patient remained alert throughout, however, demonstrated some increased WOB. Lung sounds largely CTAB throughout anterior lung mckee, though exam was limited by inability to complete posterior lung exam. RT called to bedside for STAT duo-nebs due to history of COPD. Discussed utility of airway clearance therapy given concern for mucus plugging due to new onset cough on morning of 07/05 as well as acute onset hypoxia. Plan: - Duo-nebs STAT - Discussed utility of airway clearance, but patient unable to participate - CXR STAT - ECG with afib w/ RVR, no ischemic changes - STAT lactate, VBG ECG with rate 100-110 and afib, no ST changes or T wave inversion, appropriate R wave progression. CXR without concerning findings, relatively stable from prior. Lactate ~2. VBG with stable alkalosis. Following duo-nebs and significant coughing episode patient was quickly weaned to RA. New recurrent leukocytosis on AM labs as well as new onset cough and concern for mucus production indicative of possible new infection. Will likely need to cover for hospital-acquired organisms given recent intubation. Will start zosyn for empiric treatment. Tiffany Stover MD Internal Medicine, PGY-2 * Cande Stover MD - 07/06/2023 194 EDT Medicine Progress Note Service Date: 07/06/2023 Admit Date: 06/25/2023 13:23 Reason for Admission: 68 y.o. male admitted with a chief complaint of epistaxis and now with a principal diagnosis of mixed cardiogenic/distributive shock. 24 Hour Events: - Transferred to inpatient medicine Subjective/Objective Subjective Seen in dialysis this AM. When asked if he had any concerns, patient stated no. Shook head yes/noin response to some questions. Patient largely non- participatory in interview. Producing large quantities (> 3L) urine over prior 24hrs. Very dark annette in color. Noted to have cough productive ofsputum while in HD. Review of Systems A ten point review of systems was performed and was negative except for pertinent positives noted in the HPI Objective Vital Signs Temp: [36.3 ??C (97.3 ??F)-36.8 ??C (98.3 ??F)] , Heart Rate: [103 BPM-128 BPM] , Resp: [16-24] , BP: (113-161)/(96-109) , SpO2: [92 %-95 %] Physical Exam Gen: NAD, awake, alert, oriented Skin: Warm, dry, intact on visible surfaces with no rashes or lesions HEENT: Atraumatic, conjunctivae clear and non-icteric, pharynx with no exudates or erythema Cardiac: Regular rate and rhythm, no murmurs/rubs/gallops, +S1/S2 Resp: Lung sounds clear in all lung mckee, no wheezes/crackles Abd: Soft, non-tender, non-distended, no visible lesions or scars, +bowel sounds, no hepatosplenomegaly Extr: No swelling/erythema, no apparent limited ROM Neuro: Awake and oriented, diffuse 2/5 strength throughout though exam largely limited by patient unwillingness to participate Psych: Pleasant affect Medications Reviewed Labs Reviewed Imaging: Reviewed Assessment/Plan Assessment Derrick Hobson is a 68 y.o. male with limited medical records available but a PMH significant for AF, COPD, Hep C who presented for epistaxis, then complicated by hypotension, new severe systolicheart failure, AHRF, electrolyte derangements, and oliguria, consistent with cardiogenic shock, shock liver, and acute kidney failure of uncertain etiology at this time. Transferred to [facility] forinitiation of dialysis. Overall he is recovering from a mixed cardiogenic/distributive shock picture, now seeing some slow improvements in neuro status, though prognosis remains unclear. Plan to monitor and provide supportive care. Consider discussing goals of care with his family. Liver function and renal function improving and patient remains hemodynamically stable off pressors. Due to cardiogenic shock and degree of reduced EF, will require ischemic evaluation prior to discharge and further titration of GDMT. Not yet stable for discharge due to need for inpatient HD, persistent afib w/ RVR, and resolving coagulopathies. Plan #Acute kidney failure, suspected ATN - resolving #Anasarca (improved) #Hyperphosphatemia L IJ dilaysis line in place. iHD with normalization of electrolytes. Now with return of some renal funtion with good UOP still requiring HD. - Tums added as phos binder - Daily phos - CTM; appreciate nutrition recs - Transitioned from CRRT to intermittent HD 06/28. - Nephrology consulted, appreciate recs - Goal ne even - Avoid nephrotoxins - Trend BMP daily - Strict I/O #Severe systolic heart failure (EF 20-25% --> 40%) #Mixed Cardiogenic/Distributive Shock (Resolved) Off pressors and inotropes since 06/26. EF improved significantly from 20% on admission to 40% on 06/27. Plan to start introducing GDMT. - HFrEF with regional wall motion abnormalities - will need ischemic workup prior to discharge - Goal SBP 120-160 - Cardiology consulted, appreciate recs (now signed off) - isosordil 10mg PO TID, hydralazine 10g PO TID - Goal HR <140 - ideally obtain repeat assessment of LVEF when no longer in RVR - ischemic eval with LHC prior to discharge (no urgency to study and the timing will be dictated byhis clinical improvement) - Holding metoprolol iso recent cardiogenic shock, consider restarting for afib w/ RVR and GDMT - Will require MRA for GDMT at some point - Currently euvolemic, no role for lasix #Persistent Afib (currently in RVR): CHADs-VASc HAS-BLED - Telemetry - Hold 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 metop iso recent shock - Hold AC for femoral hematoma - Amio 400 mg PO daily starting 06/29 - Goal HR < 140 #Acute hypoxic respiratory failure (resolved): Extubated to 3L NC on 07/02. Now on RA. S/p CTX x7 d (06/26 - ) for empiric CAP coverage though overall low suspicion #COPD: - PICTURE PAINTER duonebs PRN - Maintain SpO2 > 88% #Decompensated Cirrhosis (ascites, jaundice) #Elevated Liver Chemistries 2/2 Shock Liver #Hx Hepatitis C Virus s/p treatment Unclear if pt has hx of liver injury. Current picture c/w resolving shock liver, though on admission AST was significant greater than ALT. Hyperbilirubinemia may be in part due to hemolysis of blood in hematoma. - Daily CMP - Lasix, josey as above - Will require EGD outpatient - Referral to hepatology clinic OP MELD 3.0: 30 at 07/06/2023 9:31 MELD-Na: 31 at 07/06/2023 9:31 Calculated from: Serum Creatinine: 4.41 mg/dL (Using max of 3 mg/dL) at 07/06/2023 9:31 Serum Sodium: 141 mmol/L (Using max of 137 mmol/L) at 07/06/2023 9:31 Total Bilirubin: 10.2 mg/dL at 07/06/2023 9:31 Serum Albumin: 3.2 g/dL at 07/06/2023 9:31 INR(ratio): 1.2 Ratio at 07/06/2023 8:22 Age at listing (hypothetical): 68 years Sex: Male at 07/06/2023 9:31 #Microcytic anemia, Thrombocytopenia #L femoral hematoma #Coagulopathy/DIC (resolving) Hematoma stable thus far, no e/o ongoing bleed. Chronic JANUSZ excacerbated by acute blood loss anemiaiso DIC/hemolysis. Pattern of rising PTT, PT, D-dimer and a low fibrinogen is consistent with DIC, possibly complicated by suspected chronic liver disease though difficult to evaluate given lack of previous labs. Will continue to monitor for signs of active bleeding and repeat coags with or withoutTEG in the event of further bleeding. - If Hb drops, get CTA and consult IR - Hold heparin - Daily CBC - Consider Fe supplementation prior to d/c - Daily PT/PTT - S/p 1 unit FFP 06/25 - S/p 2x Vit K 10mg - hold further doses with improving coags #Acute Toxic/Metabolic Encephalopathy #Concern for anoxic brain injury Now off sedation and extubated, slowly improving in his mental status and ability to communicate, however prognosis is guarded. Concern for hypoactive ICU delirium vs an anoxic/hypoglycemic brain injury. Also treating empirically for hepatic encephalopathy though much less likely as he is believed to have acute liver failure rather than cirrhosis . - MRI without evidence of anoxic or hypoglycemic brain injury - lactulose, rifaximin - sedation/anxiety management with haldol, fentanyl PRN over propofol - Goals of care conversation with family. #Critical Illness Myopathy #Malnutrition - Trickle tube feeds - nutren 20 --> 40cc/hr - bowel regimen PRN - S/p thiamine 500mg IV TID x3 days - PT/OT - [employer] SERVICER - Remove NG once taking PO #Polysubstance Use Disorder - known hx cocaine use - ? EtOH use disorder - unclear if hx opioid use CHRONIC/STABLE/RESOLVED: #HTN: PICTURE PAINTER metop held #Mood disorder: Restart PICTURE PAINTER citalopram #Facial twitches (resolved): unilateral facial twitches observed by nursing staff on admission. EEGnegative for epileptiform activity # ?Neuropathic pain: Hold PICTURE PAINTER Cyclobenzaprine 10mg daily, Gabapentin 800mg TID with liver/kidney injury # Intermittent hypoglycemia - resolved: Unclear etiology of this hypoglycemia, could be reflective of known hepatic dysfunction although would havve expected it to be worse while he was in shock liver and improving now. Initiated some workup with serum AM cortisol (normal); if he continues to be hypoglycemic with increased tube feeds, will consider further workup. CHECKLIST: Admission status: inpatient d/t renal impairment, weakness, and resolving shock VTE Prophylaxis: held iso DIC and large L femoral hematoma Consults: n/a Code Status: Full Diet: Tube feeds, oral intake pending [employer] SERVICER consult Discharge Plan: Will likely require physical rehab given degree of weakness Admission status: Inpatient admission due to anticipated duration of hospitalization is two midnights or greater due to Shock. Cande Stover MD Internal Medicine, PGY-2 07/06/2023 19:44 Associated attestation - Can Oneill MD - 07/06/2023 2147 EDT I interviewed and examined the patient. I have personally reviewed interval events, laboratory data, and imaging. I discussed the case with the inpatient resident team. I agree with findings and planof care as documented by the resident (or have edited in Blue). Can Oneill MD * Niecy Reynolds - 07/06/2023 1645 EDT CM was note able to meet with pt today. Off floor at dialysis and then other medical providers in the room during attempts to see pt today. CM will add pt to weekend CM list. MINERVA Kingston, M. Ed. [facility] [employer] Social Work and Case Management * Madonna Husain, WAYNE - 07/06/2023 1533 EDT Nutrition Assessment Note: Reassessment BACKGROUND DATA Clinical Course Since Last RD Visit: 68 y.o. male with limited medical records available but a PMH significant for AF, COPD, Hep C who presented for epistaxis, then complicated by hypotension, new severe systolic heart failure, AHRF, electrolyte derangements, and oliguria, consistent with cardiogenic shock, shock liver, and acute kidney failure of uncertain etiology at this time. Transferred to [facility] for initiation of dialysis. Overall he is recovering from multiorgan failure, likely precipitated by cardiogenic shock which has since resolved. Seeing some slow but meaningful improvement in neuro status, however neuro prognosis is still quite guarded. Will continue to give time to heal and work on preventing further hypoglycemic episodes, and may need to start discussing goals of care with his family. Renal function starting to return but not yet regulating electrolytes; continuing IHD until nephrons mature. Otherwise, liver function improving with downtrending LFTs. Hemodynamically stable off pressors and inotropes. Still with acute heart failure though with improved EF. Hypoxic respiratory failure resolved and now successfully extubated to nasal cannula per Khushi Young MD 07/05/23. Subjective: Patient recently returned from dialysis. RN reports that patient acutely having desaturations at time of RD visit. Current Nutrition Orders: Diet-NPO TF-Nutren 2.0 at 33 ml/hr X 24 hours; 60 ml prosource 2 times daily (provides 1825 calories, 127 g protein, 1663 mg K+, 1172 mg phos, 171 g carb, and 545 mL water daily Nutrition Focused Physical Exam Incomplete; patient not appropriate today-having acute desaturations at time of visit Physical Findings: Digestive Systems: Last BM 07/06/23 watery Dentition: Teeth: Missing teeth per flowsheets Edema: none Skin: pressure injury to coccyx Allergies on file: Clonidine Anthropometrics: Height: 182.9 cm (72) Wt Readings from Last 6 Encounters: 07/06/23 70.2 kg (154 lb 12.2 oz) Weights Filed This Admission 06/25/23 1340 06/28/23 0900 06/29/23 1333 06/30/23 0815 Weight: 80.3 kg (177 lb) 80.3 kg (177 lb) 80.2 kg (176 lb 12.9 oz) 80.7 kg (177 lb 14.6 oz) 07/02/23 0949 07/02/23 1410 07/04/23 1011 07/06/23 0600 Weight: 81 kg (178 lb 9.2 oz) 80 kg (176 lb 5.9 oz) 80 kg (176 lb 5.9 oz) 70.2 kg (154 lb 12.2 oz) 07/06/23 0923 Weight: 70.2 kg (154 lb 12.2 oz) Weight Change: note acute 22 lb weight difference between 07/03 and 07/05, unclear if related to scale discrepancy and/or fluid Pertinent Medications: Current Facility-Administered Medications Medication Route Frequency acetaminophen (TYLENOL) solution unit dose cup 650 mg oral Q6H PRN alteplase (CATHFLO ACTIVASE) injection 2 mg intercatheter PRN amino acids-protein hydrolysate (PRO SOURCE NOCARB) packet 60 mL feeding tube BID amiodarone (PACERONE) tablet 400 mg oral DAILY aspirin chewable tablet 81 mg oral DAILY citalopram (CELEXA) tablet 20 mg oral DAILY dextrose 50 % solution 12.5 g intravenous PRN Dimethicone-Zinc Oxide 20-25 % spray,non-aerosol topical BID ferrous sulfate 75 mg/mL (JEAN-IN-ABHISHEK) liquid (15 mg/mL elemental iron) 45 mg per ng tube BID folic acid (FOLVITE) tablet 1 mg per ng tube DAILY heparin injection 5,000 Units subcutaneous Q12H hydrALAZINE (APRESOLINE) tablet 10 mg per ng tube TID ipratropium-albuteroL (DUONEB) 0.5 mg-3 mg(2.5 mg base)/3 mL nebulizer solution 3 mL nebulization Q4H PRN isosorbide DInitrate (ISORDIL) tablet 10 mg per ng tube TID lactulose (CHRONULAC) 20 gram/30 mL solution 30 mL oral Q4H PRN lidocaine (PF) 10 mg/mL (1 %) injection 2 mg intradermal PRN lidocaine (PF) 10 mg/mL (1 %) injection 5 mg intradermal PRN lidocaine 5 % (LIDODERM) patch 1 Patch transdermal DAILY multivitamin (NEPHROVITE) 0.8 mg tablet 1 Tablet oral QHS nutren 2.0 per g tube CONTINUOUS pantoprazole (PROTONIX) injection 40 mg intravenous DAILY papain-alpha amylase-cellulase (CLOG ZAPPER) 2-5 mL feeding tube PRN rifAXIMin (XIFAXAN) tablet 550 mg oral BID sevelamer carbonate (RENVELA) powder for oral suspension 800 mg per ng tube Q8H sodium chloride 0.9 % (flush) flush 10 mL intercatheter WEEKLY sodium chloride 0.9 % (flush) flush 10 mL intercatheter PRN sodium chloride 0.9 % (flush) flush 20 mL intercatheter PRN thiamine (VITAMIN B1) tablet 100 mg per ng tube DAILY Pertinent Labs: Lab Results Component Value Date/Time NA 141 07/06/2023 09:31 K 3.2 (L) 07/06/2023 09:31 CO2 27 07/06/2023 09:31 CL 99 07/06/2023 09:31 BUN 99 (H) 07/06/2023 09:31 CREATININE 4.41 (H) 07/06/2023 09:31 GLUCOSEPOC 136 (H) 07/05/2023 23:58 CALCIUM 9.1 07/06/2023 09:31 PHOS 6.3 (H) 07/06/2023 08:22 MG 2.0 07/06/2023 08:22 Lab Results Component Value Date/Time HGB 7.7 (L) 07/06/2023 08:21 HCT 22.7 (L) 07/06/2023 08:21 MCV 70 (L) 07/06/2023 08:21 Estimated Nutrition Needs: using 80 kg MSJ x 1.1-1.2 = 2517-1214 kcals/day 1.5 g protein/kg = 120 g protein/day Fluids per primary team Estimated Nutrition Intake: Receiving TF since admission ASSESSMENT: TF as ordered providing 100 % of estimated kcal and protein needs. Patient appears to be toleratingtube feedings with some loose/watery stools noted over past ~2 days. Current regimen remains appropriate. Patient continues on intermittent HD. Patient receiving phos binders with overall downward trend of phos levels. SE[employer]IC TANK SERVICER bedside swallow evaluation pending. Nutrition Risk Level: High (1) MEDICAL NUTRITION THERAPY - UPDATED PLAN -Continue tube feedings and prosource as ordered -Adjust water flush as needed pending fluid/volume status -Continue to replete potassium prn -Diet per SEPTIC TANK SERVICER -Monitor weight trends, stool pattern and skin -RD following plan Madonna Husain RD, CD (Call PAS or use [employer] ([employer]) to page RD covering this unit) * Edwina Hassan MD - 07/06/2023 1523 EDT NEPHROLOGY PROGRESS NOTE Admit Date: 06/25/2023 Hospital Day: LOS: 11 days Date of Service: 07/06/2023 Attending Physician: Can Oneill MD Reason for Consult: Acute renal failure 24-hour events/Subjective: Patient seen on dialysis this morning, tolerating treatment well. Says he is doing well when asked how he is. Current medications: amino acids-protein hydrolysate, 60 mL, feeding tube, BID amiodarone, 400 mg, oral, DAILY aspirin chewable, 81 mg, oral, DAILY citalopram, 20 mg, oral, DAILY Dimethicone-Zinc Oxide, , topical, BID ferrous sulfate, 45 mg, per ng tube, BID folic acid, 1 mg, per ng tube, DAILY heparin, 5,000 Units, subcutaneous, Q12H hydrALAZINE, 10 mg, per ng tube, TID isosorbide DInitrate, 10 mg, per ng tube, TID lidocaine 5 %, 1 Patch, transdermal, DAILY multivitamin, 1 Tablet, oral, QHS pantoprazole, 40 mg, intravenous, DAILY rifAXIMin, 550 mg, oral, BID sevelamer carbonate, 800 mg, per ng tube, Q8H sodium chloride 0.9 % (flush), 10 mL, intercatheter, WEEKLY thiamine, 100 mg, per ng tube, DAILY nutren 2.0, , Last Rate: 33 mL/hr at 07/06/23 0857 PRN medications: acetaminophen, alteplase, dextrose 50 %, ipratropium-albuteroL, lactulose, lidocaine, lidocaine, papain-alpha amylase-cellulase, sodium chloride 0.9 % (flush), sodium chloride 0.9 % (flush) I+O: Intake/Output Summary (Last 24 hours) at 07/06/2023 1523 Last data filed at 07/06/2023 0500 Gross per 24 hour Intake 316 ml Output 2900 ml Net -2584 ml Weight: Wt Readings from Last 5 Encounters: 07/06/23 70.2 kg (154 lb 12.2 oz) Physical Examination: BP (!) 155/96 Pulse (!) 109 Temp 36.8 ??C (98.3 ??F) (Tympanic) Resp 22 Ht 182.9 cm (72) Wt 70.2 kg (154 lb 12.2 oz) SpO2 92% BMI 20.99 kg/m?? General Appearance: Does not appear to be in acute distress HEENT: EOMI Heart: Regular rate and rhythm. Lungs: Clear to auscultation bilaterally Abdomen: Soft, bowel sounds are present. Extremities: No edema bilaterally : Alston catheter in place. Dialysis Access: A dialysis access is present. Data Review: Reviewed in [employer]ISM, notable for the following: CBC: Lab Results Component Value Date WBC 14.18 (H) 07/06/2023 RBC 3.23 (L) 07/06/2023 HGB 7.7 (L) 07/06/2023 HCT 22.7 (L) 07/06/2023 MCV 70 (L) 07/06/2023 MCH 23.8 (L) 07/06/2023 MCHC 33.9 07/06/2023 PLT 210 07/06/2023 NEUTROABS 11.37 (H) 07/06/2023 Nephrology profile: Lab Results Component Value Date NA 141 07/06/2023 K 3.2 (L) 07/06/2023 CL 99 07/06/2023 CO2 27 07/06/2023 BUN 99 (H) 07/06/2023 CREATININE 4.41 (H) 07/06/2023 CALCIUM 9.1 07/06/2023 PHOS 6.3 (H) 07/06/2023 LABALBU 3.2 (L) 07/06/2023 Recent Labs 07/04/23 0509 07/05/23 0453 07/06/23 0931 CREATININE 5.01* 3.57* 4.41* Lab Results Component Value Date CALCIUM 9.1 07/06/2023 PHOS 6.3 (H) 07/06/2023 Baseline creatinine: Unknown ASSESSMENT: Derrick Hobson is a 68-year-old male with treated Hep C, COPD, HFrEF, alcohol use disorder, and cocaine use disorder who was admitted for shock with renal and respiratory failure. JOS Anemia due to blood loss Hypokalemia Hyperphosphatemia Post ATN diuresis Most likely ATN in the setting of shock, requiring pressors. Patient required CRRT initially but now able to tolerate iHD. He is also making progressively larger but clearance has not improved to thesame degree. His electrolytes are improving except his potassium which continues to be low and requiring repletion. I suspect this is tubular loss. Initially hypotensive and on pressors but now, blood pressure has improved and patient is hypertensive. He is being restarted on his heart failure medications. So far, has been restarted on Isordil and hydralazine. RECOMMENDATIONS: -Tentatively plan for next HD on 07/08/2021 depending on clearance. -Continue to monitor electrolytes and replace as needed. -Okay to adjust heart failure medications as tolerated by BP but would hold ACEi until creatinine approaches baseline -Monitor intake and output. -Continue sevelamer powder 800 mg via NG tube every 8 hours and discontinue when phosphorus is below 5. -Can liberalize potassium in the diet. -For his post ATN diuresis, do not replace with IV fluid unless there is hemodynamic instability. In that case, give boluses as needed. Dr. Sandeep Breen will be taking over the nephrology service starting 07/07/2023. Edwina Hassan MD Nephrology 07/06/23 * Haley Rodriguez, RT - 07/06/2023 1517 EDT 1500 Called to bedside for acute desaturation with escalation of O2 requirement from RA to 6 L. MD Stover at bedside on assessment. BBS clear and diminished, unable to follow commands (this has been his baseline) for cough assessment, shallow breathing pattern. Duoneb x1 given with no change to BBS. With his history, sat goal should be >88%. Currently sating 94% on 4 L. Per protocol patient does not score for any therapy at this time. Continue with PRN order. CXR is ordered, will check back in later. Per chart, CXR unchanged, pt weaned to RA by RN at 1639. * Queenie Augustin OT - 07/06/2023 1210 EDT [facility] Acute Therapy [facility] [place] [facility] Contact Note Date of Service: 07/06/2023 OT referral received and chart reviewed. Patient off floor at dialysis. OT will follow up as appropriate/schedule allows (later today vs. early next week) Queenie Augustin OT, 07/06/2023, 12:10 * Jessica Etienne SLP - 07/06/2023 0923 EDT Speech-Language Pathology Contact Note SE[employer] T[employer] SERVICER consult received for: Clinical Bedside Swallow Evaluation. Patient is currently not available for evaluation, off unit for dialysis. Addendum: 1345 re-attempted patient visit, off unit for dialysis. Comments/Considerations: SE[employer] T[employer] SERVICER to follow up with patient this afternoon as schedule permits. Jessica Etienne MA [facility] #[phone] (Sunday-Sunday [phone]) SE[employer] T[employer] SERVICER Float Pager #[phone] (Sunday-[id number]) * Roxane Parikh RN - 07/05/2023 2305 EDT D: Patient laying quietly in bed. NG tub in place, tube feed NUTREN 2.0 running @33ml/hr. Rectal tube and alston catheter in place. A: Hourly rounding safety measures in place. Meds given as ordered. Q2 hour repositioning and hygiene care. R: Tolerating tube feeds. No signs of distress. Alston with adequate yellow clear outpu. Rectal tubewith watery brown stool. * Bev Marcelino RN - 07/05/20231950 EDT Focus: Education Packet D: Pt admitted to [place] [id number] from [facility] . A: Patient oriented to room and use of call larson. provided to and reviewed with pt . Pt repositioned for comfort, lines remain patent. BP and HR elevated- MD aware. R: Call Larson: Pt physically unable to use current call larson. Soft touch call larson given to pt. Advance Directives: Pt does not have advanced directives and declines assistance to complete. Fall Precautions and: Call Someone Now Pt unable to comprehend fall prevention materials. BEV MARCELINO RN 07/05/2023 19:51 * Bev Marcelino RN - 07/05/2023 1950 EDT FOUR EYES SKIN ASSESSMENT Four Eyes skin assessment was performed on admission to the unit by Bev Marcelino RN and Rashi Emmanuel . Patient has the following devices at the time of this assessment: NGT, O2 sat probe, Alston, and Rectal tube. Device related pressure injury present? No Areas of concern: Fill in detail for areas of concern [] Occiput [] Nose [] Ear [] Lip [] Scapula [] Spinous process [] Shoulder [] Elbow [] Iliac crest [x] Sacrum/coccyx [] Ischial tuberosity [] Trochanter [] Knee [] Malleolus [] Heel [] Toe [] Other: Last Ziggy Score: 14 Instructions: Add LDA for any identified wounds Add Medora image for any suspected PI or non surgical wounds Order wound consult if suspected PI identified If Ziggy is < or = to 16, initiate Pressure Injury Prevention Bundle ([id number]). 07/05/2023 19:50 * Khushi Young MD - 07/05/2023 1451 EDT Critical Care Progress Note Service Date: 07/05/2023 Admit Date: 06/25/2023 13:23 Reason for Admission to ICU: 68 y.o. male transferred from [facility] for cardiogenic shock and multiorgan failure. Critical and life-threatening events over the past 24 hours: - No acute events overnight Subjective/Objective Subjective Awake, making eye contact, grunting, shaking head no. Not clearly following commands. Review of Systems Review of systems not obtained due to patient factors: Unconsciousness and Ventilated Objective Vital signs: Blood pressure (!) 158/100, pulse 69, temperature 36.8 ??C (98.2 ??F), temperature source Axillary,resp. rate 16, height 182.9 cm (72), weight 80 kg (176 lb 5.9 oz), SpO2 92 %. Respiratory support: Flow O2 Flow Rate (L/min): (S) 1 l/min Physical Exam General: Comfortable on 3L NC. Awake, alert. Chronically ill appearing, cachectic male. HEENT: Normocephalic, atraumatic. Mild scleral icterus. NGT in place. Blood crusted in nares. EOMI. Heart: Tachycardic, regular rhythm. No murmurs appreciated. Lungs: Normal WOB on 3L NC. Clear to auscultation in anterior mckee bilaterally. No wheezes or crackles. Abdomen: Soft, mildly distended, grimaces with RUQ palpation. : Alston in place draining light yellow urine. Rectal tube in place. Extremities: 1+ bilateral pitting edema in lower legs, 1+ in thighs. Large L upper leg/groin hematoma with ecchymosis, tender to palpation. Mottling of hands and knees has resolved. Hands cool to touch. Skin: No rashes on exposed skin. Mild jaundice. Bruises covering bilateral lower arms. Neuro: Off sedation. Eyes open spontaneously, good eye contact, looking at objects of interest. Vocalizing, difficult to understand, limited to I am. Intermittently following commands. Intermittentgrimacing in the absence of painful stimulus. Moving all 4 extremities spontaneously within wrist re straints. Does not appear agitated. Ins/Outs: Intake/Output Summary (Last 24 hours) at 07/05/2023 1451 Last data filed at 07/05/2023 1200 Gross per 24 hour Intake 1016 ml Output 2835 ml Net -1819 ml UOP: 3200cc Labs CMP Lab Results Component Value Date NA 137 07/05/2023 K 3.3 (L) 07/05/2023 CL 99 07/05/2023 CO2 26 07/05/2023 SERGLU 112 (H) 07/05/2023 BUN 79 (H) 07/05/2023 CREATININE 3.57 (H) 07/05/2023 CALCGFR 18 (L) 07/05/2023 TP 6.1 (L) 07/05/2023 ALKPHOS 149 (H) 07/05/2023 AST 149 (H) 07/05/2023 ALT 216 (H) 07/05/2023 TBIL 7.9 (H) 07/05/2023 CALCIUM 8.3 (L) 07/05/2023 AGRATIO 0.7 (L) 07/05/2023 ANIONGAP 12 07/05/2023 Lab Results Component Value Date WBC 12.61 (H) 07/05/2023 HGB 7.4 (L) 07/05/2023 HCT 20.9 (LL) 07/05/2023 MCV 68 (L) 07/05/2023 PLT 156 07/05/2023 Imaging No new imaging. Cardio N/a Micro 06/24 Bcx x2 - Negative Assessment/Plan Assessment Derrick Hobson is a 68 y.o. male with limited medical records available but a PMH significant for AF, COPD, Hep C who presented for epistaxis, then complicated by hypotension, new severe systolicheart failure, AHRF, electrolyte derangements, and oliguria, consistent with cardiogenic shock, shock liver, and acute kidney failure of uncertain etiology at this time. Transferred to [facility] forinitiation of dialysis. Overall he is recovering from multiorgan failure, likely precipitated by cardiogenic shock which has since resolved. Seeing some slow but meaningful improvement in neuro status, however neuro prognosis is still quite guarded. Will continue to give time to heal and work on preventing further hypoglycemic episodes, and may need to start discussing goals of care with his family. Renal function starting to return but not yet regulating electrolytes; continuing IHD until nephrons mature. Otherwise, liver function improving with downtrending LFTs. Hemodynamically stable off pressors and inotropes. Still with acute heart failure though with improved EF. Hypoxic respiratory failure resolved and now successfully extubated to nasal cannula. Plan Pulmonary # Acute hypoxic respiratory failure - resolving Extubated to 3L NC on 07/02. - Completed ceftriaxone 2g q24h x7 days (06/26 - ) for empiric CAP coverage though overall low suspicion - wean O2 as tolerated # COPD - Cont PICTURE PAINTER duonebs PRN Cardiac # Hypotension - resolved # Cardiogenic shock - resolved # Severe systolic heart failure (EF 20-25% --> 40%) # Elevated troponin # Elevated lactate - resolved Off pressors and inotropes since 06/26. EF improved significantly from 20% on admission to 40% on TTE from 06/27. Plan to start introducing GDMT. Now becoming more hypertensive but with mottled extremities concerning for overall hypoperfusion - will hold off on advancing GDMT and allow for permissive hypertension while he is in the ICU. - HFrEF with regional wall motion abnormalities - will need ischemic workup prior to discharge. - Cont isosordil 10mg PO TID, hydralazine 10g PO TID - Goal SBP 120-160 - Cardiology consulted, appreciate recs (now signed off) - continue to hold GDMT at least another 24 hrs. If stable tomorrow afternoon with SBP >120 thenwe can start isordil/hydralazine at 10mg/10mg respectively - monitor heart rates, goal Hrs <140 - continue heparin gtt - ideally we should get a repeat assessment of his LVEF when he is no longer in rapid afib. Timing to be determined - ischemic evaluation with [facility] prior to discharge, however there is no urgency to this study and the timing will be dictated by his clinical improvement # Chronic Afib Rate well controlled on amiodarone. - Tele - Holding PICTURE PAINTER metoprolol iso recent cardiogenic shock - Holding AC with femoral hematoma - Amio 400mg PO daily on 06/29; HR high 90s-110s since - Goal HR <140 # Chronic HTN (presumed from med list) - Hold PICTURE PAINTER metoprolol, spironolactone; likely restart as part of GDMT at some point in this admission. - permissive hypertension, goal SBP 120-160 Renal # Acute kidney failure, suspected ATN - resolving # Diffuse edema - improving # Hyperkalemia - resolved on HD L IJ dilaysis line in place. On iHD with normalization of electrolytes. Now with return of some renal funtion with good UOP yesterday, however expect that nephrons are immature and will need more time before they are able to balance his electrolytes. Using BUN clearance as proxy of nephron function. Will continue iHD for now. - Transitioned from CRRT to intermittent HD 06/28. - Nephrology consulted, appreciate recs - Goal net even - Avoid nephrotoxins - Trend BMP daily - Strict I/O GI Nutrition # Hyperbilirubinemia AST/ALT continuing to downtrend since admission reflective of resolving shock liver. Tbili rising over the past 2 days, primarily conjugated. Possibly due to hemolysis/clearance of blood in L leg hematoma. Less likely due to DIC as his coags are stable. Small concern for acalculous cholecystitis, though he is afebrile and without obvious RUQ tenderness. - CTM LFTs - RUQ US if clinical suspicion increases # Shock liver - resolving - Management of cardiogenic shock as above - Avoid hepatotoxins - Daily CMP Last BM: 06/28 - Trickle tube feeds - nutren 20 --> 30cc/hr - bowel regimen - s/p thiamine 500mg IV TID x3 days #Hyperphosphatemia - Tums added as phos binder - sevelamer 800mg q8 - Daily phos - CTM; appreciate nutrition recs Infectious Disease Low suspicion for infective process at this time. - Ceftriaxone 2g q24h x7 days (06/26 - ) Hematologic # L femoral hematoma Developed at site of A-line from outside hospital. Managing with pressure. Appears stable. Will consult IR for intervention if Hgb drops/hemodynamic instability. - Hold heparin - daily CBC # Microcytic anemia Likely iron deficiency/acute blood loss anemia complicated by DIC/hemolysis - CTM - Ferrous sulfate 45mg BID - Defer iron studies with recent transfusion # Coagulopathy # DIC - resolved Pattern of rising PTT, PT, D-dimer and a low fibrinogen is consistent with DIC, possibly complicated by suspected chronic liver disease though difficult to evaluate given lack of previous labs. Will continue to monitor for signs of active bleeding and repeat coags with or without TEG in the event of further bleeding. - Daily PT/PTT - S/p 1 unit FFP 06/25 - S/p 2x Vit K 10mg - hold further doses with improving coags # Thrombocytopenia - resolving CTM. Unlikely to be tax compliance representative of HIT with timing of onset (first exposed 06/24); plt count improved today. More likely due to his systemic illness. Neurologic # Decreased mentation - improving # Concern for anoxic brain injury Now off sedation and extubated, slowly improving in his mental status and ability to communicate, however prognosis is guarded. Concern for hypoactive ICU delirium vs an anoxic/hypoglycemic brain injury. Also treating empirically for hepatic encephalopathy though much less likely as he is believed to have acute liver failure rather than cirrhosis . - MRI without evidence of anoxic or hypoglycemic brain injury - lactulose, rifaximin - sedation/anxiety management with haldol, fentanyl PRN over propofol - Goals of care conversation with family. # Facial twitches - resolved One-sided facial twitches observed by nursing staff on admission. EEG negative while off sedation -and now discontinued. # Mood disorder - Cont PICTURE PAINTER Citalopram 20mg daily --> d/c'ed to avoid potential medication interactions consider resumption after conscious # ?Neuropathic pain - Hold PICTURE PAINTER Cyclobenzaprine 10mg daily, Gabapentin 800mg TID with liver/kidney injury Endocrine # Intermittent hypoglycemia - resolved Hypoglycemic to 12 prior to transfer, again to 24 on and BG generally 70s- 110s. Unclear etiology of this hypoglycemia, could be reflective of known hepatic dysfunction although would havve expected it to be worse while he was in shock liver and improving now. Suspect that we are not meeting his calorie needs - only 1570 calories/day with current tube feed regimen. Will increase this. Initiated some workup with serum AM cortisol (normal); if he continues to be hypoglycemic with increased tube feeds, will consider further workup. - Continue to monitor with POC glucose q6h. - Nutren 20 --> 30 cc/hr after discussion with nutrition - Goal glucose 100-180 Prophylaxis - DVT ppx - Holding with femoral hematoma - HOB elevated - maintain SCDs - Cont PICTURE PAINTER pantoprazole Communication Code Status: Full Code. Critical Care Daily Checklist: Completed Khushi Young MD Family Medicine PGY1 Epic Chat or Pager #[phone] 07/05/23 14:51 Associated attestation - Kael Denny MD - 07/05/2023 1513 EDT Attestation: I performed or was present during the lord or critical portions of the visit and participated in the management of the patient on 07/05/2023. I agree with the findings and plan of care documented in the resident's/fellow's note. Kael Denny MD 07/05/2023 15:13 * Edwina Hassan MD - 07/05/2023 1250 EDT NEPHROLOGY PROGRESS NOTE Admit Date: 06/25/2023 Hospital Day: LOS: 10 days Date of Service: 07/05/2023 Attending Physician: Can Oneill MD Reason for Consult: Acute renal failure 24-hour events/Subjective: Patient seen at bedside this morning, does not respond directly to questions but appears to show interest in conversation and does moan occasionally. ROS: Unable to assess Current medications: amino acids-protein hydrolysate, 60 mL, feeding tube, BID amiodarone, 400 mg, oral, DAILY aspirin chewable, 81 mg, oral, DAILY calcium carbonate, 200 mg, oral, Q6H Dimethicone-Zinc Oxide, , topical, BID ferrous sulfate, 45 mg, per ng tube, BID folic acid, 1 mg, per ng tube, DAILY hydrALAZINE, 10 mg, per ng tube, TID isosorbide DInitrate, 10 mg, per ng tube, TID lidocaine 5 %, 1 Patch, transdermal, DAILY multivitamin, 1 Tablet, oral, QHS pantoprazole, 40 mg, intravenous, DAILY rifAXIMin, 550 mg, oral, BID sevelamer carbonate, 800 mg, per ng tube, Q8H sodium chloride 0.9 % (flush), 10 mL, intercatheter, WEEKLY thiamine, 100 mg, per ng tube, DAILY nutren 2.0, , Last Rate: 33 mL/hr at 07/05/23 1037 PRN medications: acetaminophen, alteplase, dextrose 50 %, ipratropium-albuteroL, lactulose, lidocaine, lidocaine, magnesium sulfate, papain-alpha amylase- cellulase, polyethylene glycol 3350, potassium chloride in water, senna OR sennosides, sodium chloride 0.9 % (flush), sodium chloride 0.9 % (flush) I+O: Intake/Output Summary (Last 24 hours) at 07/05/2023 1250 Last data filed at 07/05/2023 1200 Gross per 24 hour Intake 1082 ml Output 3040 ml Net -1958 ml Weight: Wt Readings from Last 5 Encounters: 07/04/23 80 kg (176 lb 5.9 oz) Physical Examination: BP (!) 147/95 Pulse (!) 120 Temp 36.6 ??C (97.9 ??F) (Axillary) Resp 15 Ht 182.9 cm (72) Wt 80 kg (176 lb 5.9 oz) SpO2 95% BMI 23.92 kg/m?? General Appearance: Does not appear to be in acute distress HEENT: EOMI Heart: Regular rate and rhythm. Lungs: Clear to auscultation bilaterally Abdomen: Soft, bowel sounds are present. Extremities: No edema bilaterally : Alston catheter in place. Dialysis Access: A dialysis access is present. Data Review: Reviewed in PRISM, notable for the following: CBC: Lab Results Component Value Date WBC 12.61 (H) 07/05/2023 RBC 3.07 (L) 07/05/2023 HGB 7.4 (L) 07/05/2023 HCT 20.9 (LL) 07/05/2023 MCV 68 (L) 07/05/2023 MCH 24.1 (L) 07/05/2023 MCHC 35.4 07/05/2023 PLT 156 07/05/2023 NEUTROABS 7.66 07/02/2023 Nephrology profile: Lab Results Component Value Date NA 137 07/05/2023 K 3.3 (L) 07/05/2023 CL 99 07/05/2023 CO2 26 07/05/2023 BUN 79 (H) 07/05/2023 CREATININE 3.57 (H) 07/05/2023 CALCIUM 8.3 (L) 07/05/2023 PHOS 5.0 (H) 07/05/2023 LABALBU 2.6 (L) 07/05/2023 Recent Labs 07/03/23 0342 07/04/23 0509 07/05/23 0453 CREATININE 3.78* 5.01* 3.57* Lab Results Component Value Date CALCIUM 8.3 (L) 07/05/2023 PHOS 5.0 (H) 07/05/2023 Baseline creatinine: Unknown ASSESSMENT: Derrick Hobson is a 68-year-old male with treated Hep C, COPD, HFrEF, alcohol use disorder, and cocaine use disorder who was admitted for shock with renal and respiratory failure. JOS Anemia due to blood loss Hypokalemia Hyperphosphatemia Most likely ATN in the setting of shock, requiring pressors. Patient started on CRRT but now able to tolerate iHD. He is also making progressively larg amounts of urine however electrolytes remain anissue signifying he is not clearing adequately. His electrolytes are improving except his potassium which continues to be low and requiring repletion. I suspect this is tubular loss. RECOMMENDATIONS: -Tentatively plan for next HD on 07/05/2021 depending on clearance. -Continue to monitor electrolytes and replace as needed. -Monitor intake and output. -Continue renal diet for now -Continue sevelamer powder 800 mg via NG tube every 8 hours and discontinue when phosphorus is below 4 Edwina Hassan MD Nephrology 07/05/23 * Carrie Driscoll, PT - 07/05/2023 1035 EDT [facility] Rehabilitation Therapy Acute Therapies [facility] Physical Therapy Initial Evaluation Note Date of Service: 07/05/2023 Reason for Referral: Evaluate and treat Precautions: Activity as tolerated SUBJECTIVE: Patient not responding to questions. Grunting occasionally. Pain: No pain reported during the interview. OBJECTIVE: Reason for hospitalization: PatientProfile: Patient is a 68 y.o. male admitted on 06/25/2023 secondary to Shock ([facility]) [R57.9] From H&P 06/25/23: 68 y/o M with a h/o substance use, hep C, who decompensated at [facility] during an admission for a nosebleed in the setting of hypoglycemia, now with JOS, shock liver, systolic heart failure, multifactorial shock. The cause of his decompensation is not totally clear, it's possible this is all from cardiac failure like a stress cardiomyopathy possibly ischemic though minimally elevated troponin suggests against this. An infection is also possible so we'll continue antibiotics, follow cultures and obtain CT scans. He'll need urgent RUBBER CUTTING MACHINE TENDER for the hyperkalemia and oligoanuric renal failure. We're tryingto gain further history but family has been hard to reach. Overall will plan for supportive care, RUBBER CUTTING MACHINE TENDER, CT scan, inotropic and vasopressor support and follow course. Extubation delayed due to poor mental status. Patient extubated 07/03/23. The patient lives at [address] [place] [id number] Home environment Lives: Need to clarify Caregiver Support: No assistance available Equipment Available: Need to clarify Home Environment: need to clarify. Patient not answering questions. Family has not been able to be contacted per notes. Prior Level of Function: Assume independent as it appears patient was living alone. Unclear at thistime. Medical/Surgical History: Medical history reviewed. PMHx significant for h/o substance use, hep C, Medications: Medications reviewed Arousal, Attention, and Cognition: Orientation: Alert, tracking therapist with eyes. Patient not responding to questions, occasionally grunting. RN reporting he responds to reward of ice chips. Cardiopulmonary: Vital Signs: Activity Heart rate (bpm) Blood Pressure (mmHg) Oxygen Sat/ Fractions of inspired Oxygen SPO2/FIO2 % supine 120 136/93 96% on RA Integumentary/Anthropometric Characteristics: Palpation/Observation: Large hematoma Left upper thigh Jaundice Posture: Limited evaluation due to limited mobility Range of Motion and Joint Integrity: PROM WNL Muscle Performance: Unable to test, patient not following directions to participate in MMT. Patient actively resisting movements ie: rolling. When asked to perform heel slide, patient actively extending knees - strong quad set. Able to lift head/shoulder off bed while supine. Sensation, Reflexes, and Nerve Integrity: N/E - unable to test Neuromotor Function/Development: N/E due to evaluation limited to bedside exam Balance, Mobility, and Gait: Balance: N/E due to evaluation limited to bedside examination Mobility: During all activities performed this patient was provided cues and education. These were provided to give movement techniques to: optimize ability for patient to participate in and perform task and optimize patient safety Rolling: maximal assistance. Patient not initiating. Once rolled on left side, assisted in placing hand on railing and patient able to hold self there. Resisting rolling to right. Supine to Sit: N/E Sit to Supine: N/E Sit to Stand: N/E Stand to Sit: N/E Transfers: N/E Gait: N/e - unable to progress today. Self-Care, Home Management, Work, and Leisure: N/E at this time Outcomes: Please refer to individual sections for any outcome measures that were performed Informed Consent: The patient consented to the physical therapy evaluation. The patient agrees to and understands the physical therapy treatment plan and goals. Interventions Completed Today: Physical Therapy today at: 1000 Total treatment time: 15 minutes. Timed code treatment minutes: 0 Intervention included: No interventions completed today Patient/Family Education: Topic: Exercise Role of therapy Safety Learner: patient Method: verbal Barriers to Learning: cognitive deficits Outcome: unable to learn Team Communication: Nurse Face to face communication Prior to therapy session and After therapy session Performance during Physical Therapy and recommendations for mobility with nursing, Mobility recommendations, and Patient status ASSESSMENT: Physical Therapy Diagnosis: This patient presents with a Physical Therapy diagnosis of :Impaired mobility, Impaired self care, Lower extremity dysfunction, and Upper extremity dysfunction impacted by impairments of: cognition, muscle strength, and safety awareness Physical Therapy Prognosis: Physical therapy is medically necessary to: address these body structure/function impairments, activity limitations, and participation restrictions, establish and progress mobility/exercise and provide recommendations for staff and safe discharge planning, and improve safety and independence Current status compared to baseline level of function: below prior level of function Anticipated rate of progress: Slow Progress may be affected by the following: strengths: previous level of function barriers: acute medical issues and level of weakness/debility Discharge recommendations: [facility] Short-Term Goals: N/A Long-Term Goals: 2-4 weeks The patient will be able to perform bed mobility with minimal contact assistance demonstrating appropriate sequencing/motor planning. The patient will be able to perform transfers with moderate assistance while demonstrating an effective strategy for recovery of loss of balance. The patient will be able to ambulate with moderate assistance with no loss of balance on level surfaces >50 feet with/without assistive device as needed. The patient and/or caregiver will be aware of the PT recommendations provided and verbalize and/or demonstrate understanding of the recommendations. PLAN: Necessity: Physical Therapy will be provided by physical therapist and/or physical therapist care team assistant when medically appropriate Frequency: 1-3x/wk Intensity: 15-60 minutes Duration: During hospitalization Intervention to include: Gait training, Neuromuscular re-education, Self care/home management, Therapeutic activities, Therapeutic exercise, Wheelchair management and training Patient/Family Education: Role of PT, Discharge planning, Equipment, Safety, Fall prevention, Precautions, Home exercise program Further Data: Continued evaluation and Mobility progression Recommended Discharge Destination: Sub-acute Rehabilitation Recommended Discharge Services: Physical therapy at rehabilitation facility Recommended Equipment Needs: To be determined by next care provider Other recommendations: Occupational Therapy consult Pager: [phone] Carrie Driscoll PT 07/05/2023 15:37 * Anny Marin MD - 07/05/2023 0600 EDT Overnight Critical Care Progress Note Pt is a 68 y.o. male with a principal admitting diagnosis of Cardiogenic shock ([facility]) Active concerns this evening include: now extubated > 24h hours and doing well - Continues to have stable BP and minimal O 2 needs. - No acute overnight events. Likely stable for transfer to medicine by day team. Additional hospital problems include Patient Active Problem List Diagnosis Hypertensive disorder Backache Asthma Alcohol abuse Smoking Obesity Neck pain Chronic pain Hepatitis C antibody test positive Left shoulder pain Cardiogenic shock (HCC-CMS) Acute hypoxemic respiratory failure (HCC-CMS) JOS (acute kidney injury) (HCC-CMS) Lactic acidosis Encephalopathy Shock liver Coagulopathy (HCC-CMS) Type 2 diabetes mellitus Acute on chronic systolic heart failure (HCC-CMS) Atrial fibrillation (HCC-CMS) Hypervolemia Encounter for hemodialysis (HCC-CMS) Metabolic acidosis Hypokalemia I have spent 30 minutes with the patient providing direct patient care, reviewing documentation, reviewing lab findings, and assessing need for further interventions. Anny Marin MD Critical Care Medicine 07/05/2023 * Dorene Gill, RT - [id number] EDT Respiratory Consult/Progress Note Indications for Respiratory therapy: COPD Hx Data Vitals: Heart Rate: 104 BPM, Resp: 16, SpO2: 99 % FIO2/O2 Device: O2 Flow Rate (L/min): 3 l/min, , O2 Device: Nasal cannula, FIO2 %: 25 % RT Orders: Q12 12 Resp Eval Duoneb Q4 PRN Protocol Scoring: Bronchodilator/Inhalation Therapy Frequency Bronchodilator - Clinical Indications: History of COPD Breath Sounds: Any abnormal BS decreased Response: No change / no treatment Pulse: >100 Resp Rate: <18 SOB: None Total Score: 2 Comment:: prn Frequency Based On Total Score: 0-4 = PRN 5-7 = QID 8-10 = Q4H 11-12 = Q2H Airway Clearance Therapy Frequency Airway Clearance - Clinical Indications: History of mucous production Breath Sounds: Rhonchi / crackles Sputum: Small (tsp) / None Consistency: None Cough Effort: Strong/ productive Color: None Total Score: 2 Comment: prn Frequency Based On Total Score: 0-3 = PRN 4-6 = QID and PRN 7-9 = Q4H and PRN 10-11 = Q2H and PRN Hyperinflation Therapy Frequency Hyperinflation - Clinical Indications: No clinical indications Breath Sounds: Diminished / crackles Surgery: No X-Ray / Atelectasis: No O2 Requirements: 2-4 L above baseline Mobility Status: Mobile / at baseline Total: 4 Comment: QID Frequency Based On Total Score: 0-3 = PRN 4-6 = QID and PRN 7-9 = Q4H and PRN 10-12 = Q2H and PRN Action/Events Patient has a history of COPD but takes no scheduled respiratory treatments at home. PRN duoneb ordered. He has no home oxygen and no CPAP/BIPAP at night. He has a strong, productive cough. He is appropriate for a q 12 respiratory evaluation at this time. RT TED 07/04/23 * Edwina Hassan MD - 07/04/2023 1127 EDT NEPHROLOGY PROGRESS NOTE Admit Date: 06/25/2023 Hospital Day: LOS: 9 days Date of Service: 07/04/2023 Attending Physician: Kael Denny MD Reason for Consult: Acute renal failure 24-hour events/Subjective: Extubated to NC Remains encephalopathic, not responding to ROS Remains in MICU Dialysis today, 4 hours, well tolerated. ROS: Unable to assess Current medications: amino acids-protein hydrolysate, 60 mL, feeding tube, BID amiodarone, 400 mg, oral, DAILY aspirin chewable, 81 mg, oral, DAILY calcium carbonate, 200 mg, oral, Q6H Dimethicone-Zinc Oxide, , topical, BID ferrous sulfate, 45 mg, per ng tube, BID folic acid, 1 mg, per ng tube, DAILY hydrALAZINE, 10 mg, per ng tube, TID isosorbide DInitrate, 10 mg, per ng tube, TID lactated ringers, 500 mL, intravenous, Now multivitamin, 1 Tablet, oral, QHS pantoprazole, 40 mg, intravenous, DAILY rifAXIMin, 550 mg, oral, BID sevelamer carbonate, 800 mg, per ng tube, Q8H sodium chloride 0.9 % (flush), 10 mL, intercatheter, WEEKLY [START ON 07/05/2023] thiamine, 100 mg, per ng tube, DAILY nutren 2.0, , Last Rate: 33 mL/hr at 07/04/23 1117 PRN medications: alteplase, dextrose 50 %, ipratropium-albuteroL, lactulose, lidocaine, lidocaine, magnesium sulfate, papain-alpha amylase-cellulase, polyethylene glycol 3350, senna OR sennosides, sodium chloride 0.9 % (flush), sodium chloride 0.9 % (flush) I+O: Intake/Output Summary (Last 24 hours) at 07/04/2023 1127 Last data filed at 07/04/2023 1100 Gross per 24 hour Intake 1115 ml Output 3105 ml Net -1990 ml Weight: Wt Readings from Last 5 Encounters: 07/04/23 80 kg (176 lb 5.9 oz) Physical Examination: BP 118/86 Pulse (!) 120 Temp 36.6 ??C (97.9 ??F) (Axillary) Resp 17 Ht 182.9 cm (72) Wt 80 kg (176 lb 5.9 oz) SpO2 96% BMI 23.92 kg/m?? General Appearance: NAD HEENT: NG tube in place. TF running Heart: Regular rate and rhythm. Lungs: Clear to auscultation bilaterally Abdomen: Soft, bowel sounds are present. Extremities: No edema bilaterally : Alston catheter in place. Dialysis Access: A dialysis access is present. Data Review: Reviewed in [facility], notable for the following: CBC: Lab Results Component Value Date WBC 14.00 (H) 07/04/2023 RBC 3.50 (L) 07/04/2023 HGB 8.5 (L) 07/04/2023 HCT 24.2 (L) 07/04/2023 MCV 69 (L) 07/04/2023 MCH 24.3 (L) 07/04/2023 MCHC 35.1 07/04/2023 PLT 124 (L) 07/04/2023 NEUTROABS 7.66 07/02/2023 Nephrology profile: Lab Results Component Value Date NA 136 07/04/2023 K 3.1 (L) 07/04/2023 CL 98 07/04/2023 CO2 21 (L) 07/04/2023 BUN 104 (H) 07/04/2023 CREATININE 5.01 (H) 07/04/2023 CALCIUM 8.5 07/04/2023 PHOS 7.7 (H) 07/04/2023 LABALBU 2.7 (L) 07/04/2023 Recent Labs 07/02/23 0423 07/03/23 0342 07/04/23 0509 CREATININE 4.32* 3.78* 5.01* Lab Results Component Value Date CALCIUM 8.5 07/04/2023 PHOS 7.7 (H) 07/04/2023 Baseline creatinine: Unknown ASSESSMENT: Derrick Hobson is a 68-year-old male with treated Hep C, COPD, HFrEF, alcohol use disorder, and cocaine use disorder who was admitted for shock with renal and respiratory failure. JOS Metabolic acidosis Anemia due to blood loss Hypokalemia Hyperphosphatemia Most likely ATN in the setting of shock, requiring pressors. Patient started on CRRT but now able to tolerate iHD. He is also making progressively large amounts of urine however electrolytes remain an issue signifying he is not clearing adequately. Repeat iHD today, will not plan on removing significant volume due to significant auto-diuresis, euvolemic on exam. Will continue supportive measures until ATN resolves. RECOMMENDATIONS: -Tentatively plan for next HD on 07/05/2021 -Continue to monitor electrolytes and replace as needed. -Monitor intake and output. -Continue renal diet for now -Continue sevelamer powder 800 mg via NG tube every 8 hours and discontinue when phosphorus is below 4 Leland Vo MD 07/04/23 11:33 Pager #[phone] (Service Pager) I saw and examined the patient with the resident. My interaction with the patient included review of current medications, laboratory and imaging studies, and communication with the patient, family, and primary care givers. I agree with the findings and plan of care as documented in the above note. Edwina Hassan MD Nephrology 07/04/23 * Kael Denny MD - 07/04/2023 0925 EDT Critical Care Progress Note Service Date: 07/04/2023 Admit Date: 06/25/2023 13:23 Reason for Admission to ICU: 68 y.o. male transferred from [facility] for cardiogenic shock and multiorgan failure. Critical and life-threatening events over the past 24 hours: - No acute events overnight - Extubated to OK Subjective/Objective Subjective Awake, making consistent eye contact, tracking, looking at objects of interest. Shook head no when asked if he was in any pain but would not follow any other commands. Review of Systems Review of systems not obtained due to patient factors: Unconsciousness and Ventilated Objective Vital signs: Blood pressure 118/86, pulse (!) 120, temperature 36.6 ??C (97.9 ??F), temperature source Axillary,resp. rate 17, height 182.9 cm (72), weight 80 kg (176 lb 5.9 oz), SpO2 96 %. Respiratory support: Flow O2 Flow Rate (L/min): 3 l/min Physical Exam General: Comfortable on 3L NC. Awake, alert. Chronically ill appearing, cachectic male. HEENT: Normocephalic, atraumatic. Mild scleral icterus. NGT in place. Blood crusted in nares. EOMI. Heart: Tachycardic, regular rhythm. No murmurs appreciated. Lungs: Normal WOB on 3L NC. Clear to auscultation in anterior mckee bilaterally. No wheezes or crackles. Abdomen: Soft, mildly distended, grimaces with RUQ palpation. : Alston in place draining light yellow urine. Rectal tube in place. Extremities: 1+ bilateral pitting edema in lower legs, 1+ in thighs. Mottling of hands and knees. Hands cool to touch. Skin: No rashes on exposed skin. No jaundice. Bruises covering bilateral lower arms. Neuro: Off sedation. Eyes open spontaneously, good eye contact, looking at objects of interest. Vocalizing, difficult to understand, limited to I am. Intermittently following commands. Intermittentgrimacing in the absence of painful stimulus. Moving all 4 extremities spontaneously within wrist re straints. Does not appear agitated. Ins/Outs: Intake/Output Summary (Last 24 hours) at 07/04/2023 0925 Last data filed at 07/04/2023 0900 Gross per 24 hour Intake 1119.1 ml Output 3160 ml Net -2040.9 ml UOP: 3200cc Labs CMP Lab Results Component Value Date NA 136 07/04/2023 K 3.1 (L) 07/04/2023 CL 98 07/04/2023 CO2 21 (L) 07/04/2023 SERGLU 118 (H) 07/04/2023 BUN 104 (H) 07/04/2023 CREATININE 5.01 (H) 07/04/2023 CALCGFR 12 (L) 07/04/2023 TP 6.2 (L) 07/04/2023 ALKPHOS 152 (H) 07/04/2023 AST 159 (H) 07/04/2023 ALT 256 (H) 07/04/2023 TBIL 7.0 (H) 07/04/2023 CALCIUM 8.5 07/04/2023 AGRATIO 0.8 (L) 07/04/2023 ANIONGAP 17 (H) 07/04/2023 Lab Results Component Value Date WBC 14.00 (H) 07/04/2023 HGB 8.5 (L) 07/04/2023 HCT 24.2 (L) 07/04/2023 MCV 69 (L) 07/04/2023 PLT 124 (L) 07/04/2023 Imaging No new imaging. Cardio N/a Micro 06/24 Bcx x2 - Negative Assessment/Plan Assessment Derrick Hobson is a 68 y.o. male with limited medical records available but a PMH significant for AF, COPD, Hep C who presented for epistaxis, then complicated by hypotension, new severe systolicheart failure, AHRF, electrolyte derangements, and oliguria, consistent with cardiogenic shock, shock liver, and acute kidney failure of uncertain etiology at this time. Transferred to [facility] forinitiation of dialysis. Overall he is recovering from a mixed cardiogenic/distributive shock picture, now seeing some slow improvements in neuro status. Neurologic prognosis in very guarded at this time. Will continue to give time to heal and work on preventing further hypoglycemic episodes, and need to start discussing goals of care with his family. Otherwise, liver function improving with downtrending LFTs. Hemodynamically stable off pressors and inotropes. Still with acute heart failure though with improved EF. Hypoxic respiratory failure improving on minimal ventilator settings but remains intubated due to AMS. Renal function starting to return but not yet regulating electrolytes; continuing IHD until nephronsmature. Plan Pulmonary # Acute hypoxic respiratory failure - resolving Extubated to 3L NC on 07/02. - Completed ceftriaxone 2g q24h x7 days (06/26 - ) for empiric CAP coverage though overall low suspicion - wean O2 as tolerated # COPD - Cont PICTURE PAINTER duonebs PRN Cardiac # Hypotension - resolved # Cardiogenic shock - resolved # Severe systolic heart failure (EF 20-25% --> 40%) # Elevated troponin # Elevated lactate - resolved Off pressors and inotropes since 06/26. EF improved significantly from 20% on admission to 40% on TTE from 06/27. Plan to start introducing GDMT. Now becoming more hypertensive but with mottled extremities concerning for overall hypoperfusion - will hold off on advancing GDMT and allow for permissive hypertension while he is in the ICU. - HFrEF with regional wall motion abnormalities - will need ischemic workup prior to discharge. - Cont isosordil 10mg PO TID, hydralazine 10g PO TID - Goal SBP 120-160 - Cardiology consulted, appreciate recs (now signed off) - continue to hold GDMT at least another 24 hrs. If stable tomorrow afternoon with SBP >120 thenwe can start isordil/hydralazine at 10mg/10mg respectively - monitor heart rates, goal Hrs <140 - continue heparin gtt - ideally we should get a repeat assessment of his LVEF when he is no longer in rapid afib. Timing to be determined - ischemic evaluation with [facility] prior to discharge, however there is no urgency to this study and the timing will be dictated by his clinical improvement # Chronic Afib Rate well controlled on amiodarone. - Tele - Holding PICTURE PAINTER metoprolol iso recent cardiogenic shock - Holding AC with femoral hematoma - Amio 400mg PO daily on 06/29; HR high 90s-110s since - Goal HR <140 # Chronic HTN (presumed from med list) - Hold PICTURE PAINTER metoprolol, spironolactone; likely restart as part of GDMT at some point in this admission. - permissive hypertension, goal SBP 120-160 Renal # Acute kidney failure, suspected ATN - resolving # Diffuse edema - improving # Hyperkalemia - resolved on HD L IJ dilaysis line in place. On iHD with normalization of electrolytes. Now with return of some renal funtion with good UOP yesterday, however expect that nephrons are immature and will need more time before they are able to balance his electrolytes. Will continue iHD for now. - Transitioned from CRRT to intermittent HD 06/28. - Nephrology consulted, appreciate recs - Goal net even - Avoid nephrotoxins - Trend BMP daily - Strict I/O GI Nutrition # Hyperbilirubinemia AST/ALT continuing to downtrend since admission reflective of resolving shock liver. Tbili rising over the past 2 days, primarily conjugated. Possibly due to hemolysis/clearance of blood in L leg hematoma. Less likely due to DIC as his coags are stable. Small concern for acalculous cholecystitis, though he is afebrile and without obvious RUQ tenderness. - CTM LFTs - RUQ US if clinical suspicion increases # Shock liver - resolving - Management of cardiogenic shock as above - Avoid hepatotoxins - Daily CMP Last BM: 06/28 - Trickle tube feeds - nutren 20 --> 40cc/hr - bowel regimen - thiamine 500mg IV TID x3 days #Hyperphosphatemia - Tums added as phos binder - Daily phos - CTM; appreciate nutrition recs Infectious Disease Low suspicion for infective process at this time. - Ceftriaxone 2g q24h x7 days (06/26 - ) Hematologic # L femoral hematoma - Managing with pressure. Appears stable. Will consult IR for intervention if Hgb drops. - Hold heparin - q12h CBC # Microcytic anemia - Likely iron deficiency/acute blood loss anemia complicated by DIC/hemolysis - CTM - Discuss iron supplementation with nutrition - Defer iron studies with recent transfusion # Coagulopathy # DIC - resolving Pattern of rising PTT, PT, D-dimer and a low fibrinogen is consistent with DIC, possibly complicated by suspected chronic liver disease though difficult to evaluate given lack of previous labs. Will continue to monitor for signs of active bleeding and repeat coags with or without TEG in the event of further bleeding. - Daily PT/PTT - S/p 1 unit FFP 06/25 - S/p 2x Vit K 10mg - hold further doses with improving coags # Thrombocytopenia - stable CTM. Unlikely to be tax compliance representative of HIT with timing of onset (first exposed 06/24); plt count improved today. More likely due to his systemic illness. Neurologic # Decreased mentation - improving # Concern for anoxic brain injury Now off sedation and extubated, slowly improving in his mental status and ability to communicate, however prognosis is guarded. Concern for hypoactive ICU delirium vs an anoxic/hypoglycemic brain injury. Also treating empirically for hepatic encephalopathy though much less likely as he is believed to have acute liver failure rather than cirrhosis . - MRI without evidence of anoxic or hypoglycemic brain injury - lactulose, rifaximin - sedation/anxiety management with haldol, fentanyl PRN over propofol - Goals of care conversation with family. # Facial twitches - resolved One-sided facial twitches observed by nursing staff on admission. EEG negative while off sedation -and now discontinued. # Mood disorder - Cont PICTURE PAINTER Citalopram 20mg daily --> d/c'ed to avoid potential medication interactions consider resumption after conscious # ?Neuropathic pain - Hold PICTURE PAINTER Cyclobenzaprine 10mg daily, Gabapentin 800mg TID with liver/kidney injury Endocrine # Intermittent hypoglycemia - resolved Hypoglycemic to 12 prior to transfer, again to 24 on and BG generally 70s- 110s. Unclear etiology of this hypoglycemia, could be reflective of known hepatic dysfunction although would havve expected it to be worse while he was in shock liver and improving now. Suspect that we are not meeting his calorie needs - only 1570 calories/day with current tube feed regimen. Will increase this. Initiated some workup with serum AM cortisol (normal); if he continues to be hypoglycemic with increased tube feeds, will consider further workup. - Continue to monitor with POC glucose q6h. - Nutren 20 --> 30 cc/hr after discussion with nutrition - Goal glucose 100-180 Prophylaxis - DVT ppx - Holding with femoral hematoma - HOB elevated - maintain SCDs - Cont PICTURE PAINTER pantoprazole Communication Code Status: Full Code. Critical Care Daily Checklist: Completed Khushi Young MD Family Medicine PGY1 Epic Chat or Pager #[phone] 07/04/23 9:25 Attending attestation statement: I saw and examined the patient with the resident/medical student and agree with the findings and plans as documented, and as amended in blue. Clinical Condition: Derrick Hobson is a critically ill 68 y.o. male. Over the past 24 hours, there has been a high probability of sudden, clinically significant or life threatening deterioration in the patient???s condition, which include the following diagnoses which I have managed: 1. JOS (acute kidney injury) (HCC-CMS) 2. Lactic acidosis 3. Shock liver 4. Cardiogenic shock (HCC-CMS) 5. Acute hypoxemic respiratory failure (HCC-CMS) 6. Coagulopathy (HCC-CMS) 7. Encephalopathy 8. DIC (disseminated intravascular coagulation) (HCC-CMS) 9. Type 2 diabetes mellitus with other specified complication, without long-term current use of insulin (HCC-CMS) 10. Acute on chronic systolic heart failure (HCC-CMS) 11. Atrial fibrillation, unspecified type (HCC-CMS) 12. Metabolic acidosis 13. Hypervolemia, unspecified hypervolemia type 14. Encounter for hemodialysis (HCC-CMS) 15. Hypokalemia Critical Care time was provided in the form of interventions to treat and prevent further life threatening deterioration of the patient???s condition including: neurological monitoring, and high complexity decision making regarding need for additional imaging studies and / or interventional radiology interventions. My bedside involvement was required to monitor and direct the critical care that has been provided.Exclusive of procedures, my critical care time is 43 minutes. Kael Denny MD Pulmonary & Critical Care Medicine 07/04/2023 * Mary Addison, WAYNE - 07/04/2023 0925 EDT Nutrition Assessment Note: Reassessment BACKGROUND DATA Subjective: Extubated/propofol d/c'd. NGT remains in with TF running at goal. Unable to converse with pt; no family in room at time of visit. Current Nutrition Orders: NPO TF: Nutren 2.0 at 30 ml/hr continuous + 60 mL Prosource BID Provides 1680 calories, 121 g protein, 155 g carb, and 495 mL water per day. No additional free water ordered *Delegate Diet Ordering to RD Objective Physical Findings: Net IO Since Admission: -1,383.03 mL [07/04/23 0925] Digestive Systems: Last BM 07/03 Dentition: Teeth: Missing teeth per flowsheets Edema: +1/+2 RUE/LUE, +2 RLE/LLE Skin: pressure injury to coccyx Allergies on file: Clonidine Temp: [36.3 ??C (97.4 ??F)-36.8 ??C (98.2 ??F)] Anthropometrics: Height: 182.9 cm (72) BMI: Body mass index is 23.92 kg/m??. Weight Change: no significant changes at this time Weights Filed This Admission 06/25/23 1340 06/28/23 0900 06/29/23 1333 06/30/23 0815 Weight: 80.3 kg (177 lb) 80.3 kg (177 lb) 80.2 kg (176 lb 12.9 oz) 80.7 kg (177 lb 14.6 oz) 07/02/23 0949 07/02/23 1410 Weight: 81 kg (178 lb 9.2 oz) 80 kg (176 lb 5.9 oz) Wt Readings from Last 6 Encounters: 07/02/23 80 kg (176 lb 5.9 oz) Pertinent Medications: Current Facility-Administered Medications Medication Route Frequency alteplase (CATHFLO ACTIVASE) injection 2 mg intercatheter PRN amino acids-protein hydrolysate (PRO SOURCE NOCARB) packet 60 mL feeding tube BID amiodarone (PACERONE) tablet 400 mg oral DAILY aspirin chewable tablet 81 mg oral DAILY calcium carbonate suspension 200 mg oral Q6H dextrose 50 % solution 12.5 g intravenous PRN dextrose 50 % solution dextrose 50 % solution Dimethicone-Zinc Oxide 20-25 % spray,non-aerosol topical BID hydrALAZINE (APRESOLINE) tablet 10 mg per ng tube TID indapamide (LOZOL) tablet 5 mg oral DAILY ipratropium-albuteroL (DUONEB) 0.5 mg-3 mg(2.5 mg base)/3 mL nebulizer solution 3 mL nebulization Q4H PRN isosorbide DInitrate (ISORDIL) tablet 10 mg per ng tube TID lactulose (CHRONULAC) 20 gram/30 mL solution 30 mL oral Q4H PRN lidocaine (PF) 10 mg/mL (1 %) injection 2 mg intradermal PRN lidocaine (PF) 10 mg/mL (1 %) injection 5 mg intradermal PRN magnesium sulfate 2 g in water 50 mL intravenous PRN multivitamin (NEPHROVITE) 0.8 mg tablet 1 Tablet oral QHS norepinephrine (LEVOPHED) 8 mg in NS 250 mL infusion intravenous CONTINUOUS nutren 2.0 per g tube CONTINUOUS pantoprazole (PROTONIX) injection 40 mg intravenous DAILY papain-alpha amylase-cellulase (CLOG ZAPPER) 2-5 mL feeding tube PRN polyethylene glycol 3350 (MIRALAX) packet 17 g oral Daily PRN rifAXIMin (XIFAXAN) tablet 550 mg oral BID senna (SENOKOT) tablet 2 Tablet oral BID PRN Or sennosides (SENOKOT) syrup 17.6 mg per ng tube BID PRN sodium chloride 0.9 % (flush) flush 10 mL intercatheter WEEKLY sodium chloride 0.9 % (flush) flush 10 mL intercatheter PRN sodium chloride 0.9 % (flush) flush 20 mL intercatheter PRN thiamine (VITAMIN B-1) 100 mg in sodium chloride (NS) 0.9 % 50 mL IVPB intravenous DAILY Pertinent Labs: Lab Results Component Value Date WBC 14.00 (H) 07/04/2023 RBC 3.50 (L) 07/04/2023 HGB 8.5 (L) 07/04/2023 HCT 24.2 (L) 07/04/2023 MCV 69 (L) 07/04/2023 MCH 24.3 (L) 07/04/2023 PLT 124 (L) 07/04/2023 NA 136 07/04/2023 K 3.1 (L) 07/04/2023 CL 98 07/04/2023 CO2 21 (L) 07/04/2023 BUN 104 (H) 07/04/2023 CREATININE 5.01 (H) 07/04/2023 CALCIUM 8.5 07/04/2023 MG 2.4 07/04/2023 PHOS 7.7 (H) 07/04/2023 Lab Results Component Value Date/Time GLUCOSEPOC 118 (H) 07/04/2023 05:12 GLUCOSEPOC 93 07/04/2023 00:25 GLUCOSEPOC 99 07/03/2023 17:30 GLUCOSEPOC 120 (H) 07/03/2023 14:43 GLUCOSEPOC 119 (H) 07/03/2023 12:06 Lab Results Component Value Date/Time ALT 256 (H) 07/04/2023 05:09 AST 159 (H) 07/04/2023 05:09 ALKPHOS 152 (H) 07/04/2023 05:09 TBIL 7.0 (H) 07/04/2023 05:09 TRIG 65 06/30/2023 02:34 Estimated Nutrition Needs: using 80 kg MSJ x 1.1-1.2 = 8556-1587 kcals/day 1.5 g protein/kg = 120 g protein/day Fluids per primary team Estimated Nutrition Intake: receiving TF since admission ASSESSMENT: Pt continues tolerating TF at this time. Recommend adjust TF to meet 100% of needs now that pt is off propofol. RD will place orders. Tolerated HD well; plan for next HD today. K+ low, received repletion this morning. Phos remains elevated. Receiving tums suspension 200 mg q 6 hours. Recommend add sevelamer powder q 8 hours as additional phos binder per wire walker's recs.RD following and will provide updated recommendations as indicated. Nutrition Risk Level: High (1) MEDICAL NUTRITION THERAPY - UPDATED PLAN RD will adjust TF: Enteral Nutrition - Continuous - Nutren 2.0 at 33 mL/hr + 60 ml prosource BID - Goal TF + prosource would provide 1825 calories, 127 g protein, 171 g carb, and 545 mL water daily Recommendations requiring MD orders: - Adjust water flush as needed - Continue to replete potassium prn - Add 800 mg sevelamer powder q 8 hours as phos binder Mary Addison RD, CD (Call PAS or use [employer] to page RD covering this unit) * Dorene Gill RT - 07/03/20232036 EDT Respiratory Consult/Progress Note Indications for Respiratory therapy: COPT history Data Vitals: Heart Rate: 99 BPM, Resp: 15, SpO2: 98 % FIO2/O2 Device: O2 Flow Rate (L/min): 3 l/min, , O2 Device: Nasal cannula, FIO2 %: 25 % RT Orders: Q12 Resp Eval Duoneb Q4 PRN Protocol Scoring: Bronchodilator/Inhalation Therapy Frequency Bronchodilator - Clinical Indications: History of COPD Breath Sounds: Any abnormal BS decreased Response: No change / no treatment Pulse: <100 Resp Rate: <18 SOB: None Total Score: 1 Comment:: PRN Frequency Based On Total Score: 0-4 = PRN 5-7 = QID 8-10 = Q4H 11-12 = Q2H Airway Clearance Therapy Frequency Airway Clearance - Clinical Indications: History of mucous production Breath Sounds: Rhonchi / crackles Sputum: Small (tsp) / None Consistency: None Cough Effort: Strong/ productive Color: None Total Score: 2 Comment: PRN Frequency Based On Total Score: 0-3 = PRN 4-6 = QID and PRN 7-9 = Q4H and PRN 10-11 = Q2H and PRN Hyperinflation Therapy Frequency Hyperinflation - Clinical Indications: No clinical indications Breath Sounds: Diminished / crackles Surgery: No X-Ray / Atelectasis: No O2 Requirements: 2-4 L above baseline Mobility Status: Mobile / at baseline Total: 4 Comment: QID Frequency Based On Total Score: 0-3 = PRN 4-6 = QID and PRN 7-9 = Q4H and PRN 10-12 = Q2H and PRN Action/Events Respiratory Events Patient has a history of COPD but takes no scheduled respiratory treatments at home. PRN duoneb ordered. He has no home oxygen and no CPAP/BIPAP at night. He has a strong, productive cough. He is appropriate for a q 12 respiratory evaluation at this time. DORENE GILL, RT 07/03/23 * Tavo Byers, RT - 07/03/2023 1324 EDT Respiratory Consult/Progress Note Indications for Respiratory therapy: COPD history Data Vitals: Heart Rate: (!) 109 BPM, Resp: 22, SpO2: 97 % FIO2/O2 Device: O2 Flow Rate (L/min): 3 l/min, O2 Device: Nasal cannula RT Orders: Q4 respiratory evaluation PRN duoneb Protocol Scoring: Bronchodilator/Inhalation Therapy Frequency Bronchodilator - Clinical Indications: History of COPD Breath Sounds: Any abnormal BS decreased Response: No change / no treatment Pulse: <100 Resp Rate: <18 SOB: None Total Score: 1 Comment:: PRN Frequency Based On Total Score: 0-4 = PRN 5-7 = QID 8-10 = Q4H 11-12 = Q2H Airway Clearance Therapy Frequency Airway Clearance - Clinical Indications: History of mucous production Breath Sounds: Rhonchi / crackles Sputum: Large (> tbs) Consistency: Thin / thick Cough Effort: Strong/ productive Color: Clear / white Total Score: 5 Comment: Strong, effective cough Frequency Based On Total Score: 0-3 = PRN 4-6 = QID and PRN 7-9 = Q4H and PRN 10-11 = Q2H and PRN Hyperinflation Therapy Frequency Hyperinflation - Clinical Indications: No clinical indications Breath Sounds: Diminished / crackles Surgery: No X-Ray / Atelectasis: No O2 Requirements: 2-4 L above baseline Mobility Status: Mobile / at baseline Total: 4 Comment: wean oxygen as tolerated Frequency Based On Total Score: 0-3 = PRN 4-6 = QID and PRN 7-9 = Q4H and PRN 10-12 = Q2H and PRN Action/Events Patient has a history of COPD but takes no scheduled respiratory treatments at home. PRN duoneb ordered. He has no home oxygen and no CPAP/BIPAP at night. He has a strong, productive cough. He is appropriate for a q 12 respiratory evaluation at this time. Response/Results Q 12 respiratory evaluation. RT KRYSTLE 07/03/23 * Tavo Byers RT - 07/03/2023 1251 EDT Respiratory Extubation Note Pre-procedure - The extubation order and correct patient verified. The procedure was coordinated with the RN. Procedure - The patient's oral pharynx and ETT were suctioned for Secretion Amount: Small SecretionColor: Clear, White and Secretion Consistency: Thick. A cuff leak was present. The patient was extubated and placed on O2 Flow Rate (L/min): 3 l/min O2 Device: Nasal cannula. No stridor was noted andthe patient was able to produce voice. Comments: Patient was able to state No after extubation. Vent D/C Time: 1240 Ventilator days: 9 days Removed by: RT ETT LDA discontinued: Yes [REMOVED] Non-Surgical Airway ETT - cuffed 7.5 (Removed) Number of days: 8 RT KRYSTLE 07/03/23 * Edwina Hassan MD - 07/03/2023 1249 EDT NEPHROLOGY PROGRESS NOTE Admit Date: 06/25/2023 Hospital Day: LOS: 8 days Date of Service: 07/03/2023 Attending Physician: Kael Denny MD Reason for Consult: Acute renal failure 24-hour events/Subjective: Dialysis yesterday, well-tolerated. Urine output continues to improve. Patient remains in the ICU. Remains intubated and on propofol. ROS: Unable to assess Current medications: amino acids-protein hydrolysate, 60 mL, feeding tube, BID amiodarone, 400 mg, oral, DAILY aspirin chewable, 81 mg, oral, DAILY calcium carbonate, 200 mg, oral, Q6H cefTRIAXone (ROCEPHIN) 2,000 mg in sodium chloride (NS MBP) 50 mL IVPB, 2,000 mg, intravenous, DAILY dextrose 50 %, , , dextrose 50 %, , , Dimethicone-Zinc Oxide, , topical, BID hydrALAZINE, 10 mg, per ng tube, TID indapamide, 5 mg, oral, DAILY isosorbide DInitrate, 10 mg, per ng tube, TID multivitamin, 1 Tablet, oral, QHS pantoprazole, 40 mg, intravenous, DAILY rifAXIMin, 550 mg, oral, BID sodium chloride 0.9 % (flush), 10 mL, intercatheter, WEEKLY thiamine (VITAMIN B-1) 100 mg in sodium chloride (NS) 0.9 % 50 mL IVPB, 100 mg, intravenous, DAILY norepinephrine (LEVOPHED) in NS 32 mcg/mL 250 mL, 0-40 mcg/min, Last Rate: Stopped (06/30/23 2102) nutren 2.0, , Last Rate: 30 mL/hr at 07/03/23 1100 propOFol, 5-83 mcg/kg/min, Last Rate: Stopped (07/03/23 1035) PRN medications: alteplase, dextrose 50 %, dextrose 50 %, dextrose 50 %, fentaNYL citrate (PF), haloperidol lactate, ipratropium-albuteroL, lactulose, lidocaine, lidocaine, magnesium sulfate, papain-alpha amylase-cellulase, polyethylene glycol 3350, senna OR sennosides, sodium chloride 0.9 % (fl ush), sodium chloride 0.9 % (flush) I+O: Intake/Output Summary (Last 24 hours) at 07/03/2023 1250 Last data filed at 07/03/2023 1100 Gross per 24 hour Intake 1616.3 ml Output 3635 ml Net -2018.7 ml Weight: Wt Readings from Last 5 Encounters: 07/02/23 80 kg (176 lb 5.9 oz) Physical Examination: BP 116/70 Pulse (!) 120 Temp 36.8 ??C (98.2 ??F) (Axillary) Resp 22 Ht 182.9 cm (72) Wt 80 kg (176 lb 5.9 oz) SpO2 97% BMI 23.92 kg/m?? General Appearance: Intubated but awake. HEENT: ETT in place, NG tube in place. EOMI Heart: Regular rate and rhythm. Lungs: Clear to auscultation bilaterally, mechanical breath sounds. Abdomen: Soft, bowel sounds are present. Extremities: No edema bilaterally : Alston catheter in place. Dialysis Access: A dialysis access is present. Data Review: Reviewed in [facility], notable for the following: CBC: Lab Results Component Value Date WBC 11.09 (H) 07/03/2023 RBC 3.38 (L) 07/03/2023 HGB 8.2 (L) 07/03/2023 HCT 23.5 (L) 07/03/2023 MCV 70 (L) 07/03/2023 MCH 24.3 (L) 07/03/2023 MCHC 34.9 07/03/2023 PLT 88 (L) 07/03/2023 NEUTROABS 7.66 07/02/2023 Nephrology profile: Lab Results Component Value Date NA 133 (L) 07/03/2023 K 3.1 (L) 07/03/2023 CL 99 07/03/2023 CO2 19 (L) 07/03/2023 BUN 86 (H) 07/03/2023 CREATININE 3.78 (H) 07/03/2023 CALCIUM 7.7 (L) 07/03/2023 PHOS 7.4 (H) 07/03/2023 LABALBU 2.3 (L) 07/03/2023 Recent Labs 07/01/23 0255 07/02/23 0423 07/03/23 0342 CREATININE 2.96* 4.32* 3.78* Lab Results Component Value Date CALCIUM 7.7 (L) 07/03/2023 PHOS 7.4 (H) 07/03/2023 Baseline creatinine: Unknown ASSESSMENT: Derrick Hobson is a 68-year-old male with treated Hep C, COPD, HFrEF, alcohol use disorder, and cocaine use disorder who was admitted for shock with renal and respiratory failure. JOS Metabolic acidosis Anemia due to blood loss Hypokalemia Most likely ATN in the setting of shock, requiring pressors. Patient started on CRRT but now able to tolerate iHD. He is also making progressively increasing amounts of urine. Serum bicarbonate is low but should be easily managed with dialysis/improving renal function. RECOMMENDATIONS: -Tentatively plan for next HD on 07/03/2021 for -Continue to monitor electrolytes. -Monitor intake and output. -Continue renal diet for now -Start sevelamer powder 800 mg via NG tube every 8 hours and discontinue when phosphorus is below 4 Edwina Hassan MD Nephrology 07/03/23 * Tavo Byers, RT - 07/03/2023 1016 EDT Respiratory Progress Note Indications for Respiratory therapy: vent Data Vitals: Heart Rate: (!) 130 BPM, Resp: 20, SpO2: 95 % FIO2/O2 Device: O2 Device: Intubated, FIO2 %: 25 % RT Orders: SIMV 620 x 14 peep 5, pressure support 5, 25% PRN duoneb Action/Events Patient was placed on 5/5 SBT this morning and has kept a low RR and appropriate tidal volume. He continues to be altered and unable to follow directions at this time. Will change to SIMV should he appear uncomfortable or have increased RR or decreased tidal volume. He has been suctioned for a copious amount of thick, clear secretions. TAVO BYERS, 07/03/23 * Kael Denny MD - 07/03/2023 0912 EDT Critical Care Progress Note Service Date: 07/03/2023 Admit Date: 06/25/2023 13:23 Reason for Admission to ICU: 68 y.o. male transferred from [facility] for cardiogenic shock and multiorgan failure. Critical and life-threatening events over the past 24 hours: - No acute events overnight - SBT since 399 Subjective/Objective Subjective Intubated, on 10ml/hr propofol. Intermittently making eye contact and grimacing. Shook head after asked if he was in pain but no response when asked a second time. Not following commands otherwise. Grimaced with palpation of the RUQ. Review of Systems Review of systems not obtained due to patient factors: Unconsciousness and Ventilated Objective Vital signs: Blood pressure (!) 127/93, pulse (!) 120, temperature 36.8 ??C (98.2 ??F), temperature source Axillary, resp. rate 20, height 182.9 cm (72), weight 80 kg (176 lb 5.9 oz), SpO2 95 %. Ventilator Settings: Mode: SPN-CPAP Rate: 14 bmp Vt 620 mL PS:5 cmH2O PEEP 5 cmH2O FiO2: 25 % BIPAP FiO2 FIO2 %: 25 % Flow Physical Exam General: Intubated, minimally sedated. Chronically ill appearing male. HEENT: Normocephalic, atraumatic. NGT in place. Blood crusted in nares. Intermittently opens eyes with some tracking. Heart: regular rate and rhythm. No murmurs appreciated. Lungs: Intubated, symmetric chest rise. Clear to auscultation in anterior mckee bilaterally. No wheezes or crackles. Abdomen: Soft, mildly distended, grimaces with RUQ palpation. : Alston in place draining light yellow urine. Rectal tube in place. Extremities: 1+ bilateral pitting edema in lower legs, 2+ in thighs. Skin: No rashes on exposed skin. No jaundice. Bruises covering bilateral lower arms. Neuro: Minimally sedated, opens eyes spontaneously, occasionally makes eye contact, does not track consistently. Not clearly following commands. Ins/Outs: Intake/Output Summary (Last 24 hours) at 07/03/2023 0912 Last data filed at 07/03/2023 0800 Gross per 24 hour Intake 1916.1 ml Output 3370 ml Net -1453.9 ml UOP: 2440 Labs CMP Lab Results Component Value Date NA 133 (L) 07/03/2023 K 3.1 (L) 07/03/2023 CL 99 07/03/2023 CO2 19 (L) 07/03/2023 SERGLU 106 (H) 07/03/2023 BUN 86 (H) 07/03/2023 CREATININE 3.78 (H) 07/03/2023 CALCGFR 17 (L) 07/03/2023 TP 5.6 (L) 07/03/2023 ALKPHOS 122 07/03/2023 AST 167 (H) 07/03/2023 ALT 276 (H) 07/03/2023 TBIL 5.3 (H) 07/03/2023 CALCIUM 7.7 (L) 07/03/2023 AGRATIO 0.7 (L) 07/03/2023 ANIONGAP 15 (H) 07/03/2023 Lab Results Component Value Date WBC 11.09 (H) 07/03/2023 HGB 8.2 (L) 07/03/2023 HCT 23.5 (L) 07/03/2023 MCV 70 (L) 07/03/2023 PLT 88 (L) 07/03/2023 Imaging No new imaging. Cardio N/a Micro 06/24 Bcx x2 - Negative Assessment/Plan Assessment Derrick Hobson is a 68 y.o. male with limited medical records available but a PMH significant for AF, COPD, Hep C who presented for epistaxis, then complicated by hypotension, new severe systolicheart failure, AHRF, electrolyte derangements, and oliguria, consistent with cardiogenic shock, shock liver, and acute kidney failure of uncertain etiology at this time. Transferred to [facility] forinitiation of dialysis. Overall he is recovering from a mixed cardiogenic/distributive shock picture, however his neurologic status has only marginally improved since admission and neurologic prognosis in very guarded at this time. Will continue to give time to heal and work on preventing further hypoglycemic episodes, and need to start discussing goals of care with his family. Otherwise, liver function improving with downtrending LFTs. Hemodynamically stable off pressors and inotropes. Still with acute heart failure though with improved EF. Hypoxic respiratory failure improving on minimal ventilator settings but remains intubated due to AMS. Renal function starting to return but not yet regulating electrolytes; continuing IHD until nephrons mature. Plan Pulmonary # Acute hypoxic respiratory failure - resolving # Possible pneumonia Intubated on minimal vent settings. Low suspicion for pneumonia at this time. - Ceftriaxone 2g q24h x7 days (06/26 - ). - remain on minimal sedation, extubate when mental status improves # COPD Does not appear to be in a COPD exacerbation. - Cont PICTURE PAINTER duonebs PRN Cardiac # Hypotension - resolved # Cardiogenic shock - resolved # Severe systolic heart failure (EF 20-25% --> 40%) # Elevated troponin # Elevated lactate - resolved Now hemodynamically off stable pressors and inotropes. EF improved significantly from 20% on admission to 40% on TTE from 06/27. Plan to start introducing GDMT. - HFrEF with regional wall motion abnormalities - will need ischemic workup prior to discharge. - START isosordil 10mg PO TID, hydralazine 10g PO TID - Cardiology consulted, appreciate recs (now signed off) - continue to hold GDMT at least another 24 hrs. If stable tomorrow afternoon with SBP >120 thenwe can start isordil/hydralazine at 10mg/10mg respectively - monitor heart rates, goal Hrs <140 - continue heparin gtt - ideally we should get a repeat assessment of his LVEF when he is no longer in rapid afib. Timing to be determined - ischemic evaluation with [facility] prior to discharge, however there is no urgency to this study and the timing will be dictated by his clinical improvement # Chronic Afib Rate well controlled on amiodarone. - Tele - Holding PICTURE PAINTER metoprolol iso recent cardiogenic shock - Holding AC with femoral hematoma - Amio 400mg PO daily on 06/29; HR high 90s-110s since - Goal HR <140 # Chronic HTN (presumed from med list) - Hold PICTURE PAINTER metoprolol, spironolactone; likely restart as part of GDMT at some point in this admission. Renal # Acute kidney failure, suspected ATN - resolving # Diffuse edema - improving # Hyperkalemia - resolved on HD L IJ dilaysis line in place. On iHD with normalization of electrolytes. Now with return of some renal funtion with good UOP yesterday, however expect that nephrons are immature and will need more time before they are able to balance his electrolytes. Will continue iHD for now. - Transitioned from CRRT to intermittent HD 06/28. - Nephrology consulted, appreciate recs - Goal net neg 0.5L/day - Avoid nephrotoxins - Trend BMP daily - Strict I/O GI Nutrition # Shock liver - resolving - Management of cardiogenic shock as above - Avoid hepatotoxins - Daily CMP Last BM: 06/28 - Trickle tube feeds - nutren 20 --> 40cc/hr - bowel regimen - thiamine 500mg IV TID x3 days #Hyperphosphatemia - Tums added as phos binder - Daily phos - CTM; appreciate nutrition recs Infectious Disease Low suspicion for infective process at this time. - Ceftriaxone 2g q24h x7 days (06/26 - ) Hematologic # L femoral hematoma - Managing with pressure. Appears stable. Will consult IR for intervention if Hgb drops. - Hold heparin - q12h CBC # Microcytic anemia - Likely iron deficiency/acute blood loss anemia complicated by DIC/hemolysis - CTM - Discuss iron supplementation with nutrition - Defer iron studies with recent transfusion # Coagulopathy # DIC - resolving Pattern of rising PTT, PT, D-dimer and a low fibrinogen is consistent with DIC, possibly complicated by suspected chronic liver disease though difficult to evaluate given lack of previous labs. Will continue to monitor for signs of active bleeding and repeat coags with or without TEG in the event of further bleeding. - Daily PT/PTT - S/p 1 unit FFP 06/25 - S/p 2x Vit K 10mg - hold further doses with improving coags # Thrombocytopenia - stable CTM. Unlikely to be tax compliance representative of HIT with timing of onset (first exposed 06/24); plt count improved today. More likely due to his systemic illness. Neurologic # Decreased mentation # Concern for anoxic brain injury Multiple sedation wean attempts in this admission, pt continues to be altered with very slight improvement in mental status since admission. Lack of withdrawal from painful stimuli is a poor prognostic indicator. Concern for hypoactive ICU delirium vs an anoxic/hypoglycemic brain injury. Also treating empirically for hepatic encephalopathy though much less likely as he is believed to have acute liver failure rather than cirrhosis - MRI without evidence of anoxic or hypoglycemic brain injury - lactulose, rifaximin - sedation/anxiety management with haldol, fentanyl PRN over propofol - Goals of care conversation with family. # Facial twitches - resolved One-sided facial twitches observed by nursing staff on admission. EEG negative while off sedation -and now discontinued. # Mood disorder - Cont PICTURE PAINTER Citalopram 20mg daily --> d/c'ed to avoid potential medication interactions consider resumption after conscious # ?Neuropathic pain - Hold PICTURE PAINTER Cyclobenzaprine 10mg daily, Gabapentin 800mg TID with liver/kidney injury Endocrine # Intermittent hypoglycemia - resolved Hypoglycemic to 12 prior to transfer, again to 24 on and BG generally 70s- 110s. Unclear etiology of this hypoglycemia, could be reflective of known hepatic dysfunction although would havve expected it to be worse while he was in shock liver and improving now. Suspect that we are not meeting his calorie needs - only 1570 calories/day with current tube feed regimen. Will increase this. Initiated some workup with serum AM cortisol (normal); if he continues to be hypoglycemic with increased tube feeds, will consider further workup. - Continue to monitor with POC glucose q6h. - Nutren 20 --> 30 cc/hr after discussion with nutrition - Goal glucose 100-180 Prophylaxis - DVT ppx - Holding with femoral hematoma - HOB elevated - maintain SCDs - Cont PICTURE PAINTER pantoprazole Communication Code Status: Full Code. Critical Care Daily Checklist: Completed Khushi Young MD Family Medicine PGY1 Epic Chat or Pager #[phone] 07/03/23 9:12 Attending attestation statement: I saw and examined the patient with the resident/medical student and agree with the findings and plans as documented, and as amended in blue. Clinical Condition: Derrick Hosbon is a critically ill 68 y.o. male. Over the past 24 hours, there has been a high probability of sudden, clinically significant or life threatening deterioration in the patient???s condition, which include the following diagnoses which I have managed: 1. JOS (acute kidney injury) (HCC-CMS) 2. Lactic acidosis 3. Shock liver 4. Cardiogenic shock (HCC-CMS) 5. Acute hypoxemic respiratory failure (HCC-CMS) 6. Coagulopathy (HCC-CMS) 7. Encephalopathy 8. DIC (disseminated intravascular coagulation) (HCC-CMS) 9. Type 2 diabetes mellitus with other specified complication, without long-term current use of insulin (HCC-CMS) 10. Acute on chronic systolic heart failure (HCC-CMS) 11. Atrial fibrillation, unspecified type (HCC-CMS) 12. Metabolic acidosis 13. Hypervolemia, unspecified hypervolemia type 14. Encounter for hemodialysis (HCC-CMS) Critical Care time was provided in the form of interventions to treat and prevent further life threatening deterioration of the patient???s condition including: management of mechanical ventilation, and high complexity decision making regarding candidacy for extubation. My bedside involvement was required to monitor and direct the critical care that has been provided.Exclusive of procedures, my critical care time is 40 minutes. Kael Denny MD Pulmonary & Critical Care Medicine 07/03/2023 * Dk Rivera RT - 07/03/2023 0313 EDT Respiratory Progress Note Indications for Respiratory therapy: Vent Data Vitals: Heart Rate: 103 BPM, Resp: 15, SpO2: 100 % FIO2/O2 Device: , , O2 Device: Intubated, FIO2 %: 25 % RT Orders: Duo q6 prn 07/03/23 0310 Ventilator Settings - Invasive/High Acuity Vent Mode VC-AC Humidifier Temp 37 degC Set Rate (bpm) 14 bmp Vt Set (mL) 620 mL PEEP (cmH2O) 5 cmH2O FiO2 (%) (vent set) 25 % I-Time (sec) 0.9 Sec(s) Action/Events Respiratory events; Patient remains intubated overnight on above settings, no changes were made. Small to moderate amounts of trejo secretions, 0420. Pt placed on SBT 5/5/25% tolerating well, RSBI currently 44 RT SREE 07/03/23 * Tavo Byers, RT - 07/02/2023 1554 EDT Respiratory Progress Note Indications for Respiratory therapy: Vent Data Vitals: Heart Rate: (!) 126 BPM, Resp: 26, SpO2: 90 % FIO2/O2 Device: O2 Device: Intubated, FIO2 %: 25 % RT Orders: SIMV 620 x 14 peep 5/ pressure support of 5 25% PRN duoneb Action/Events Patient placed on SBT at 14:45- 15:50. Patient did shake head when asked to open his eyes. He did not squeeze hands but did move hand when asked. Placed back on SIMV after trial. Suctioned for a large amount of thick clear/white secretions from ETT. RT KRYSTLE 07/02/23 * Amadou Cantu, RN - 07/02/2023 1454 EDT Vascular Access Progress Note Diagnosis: Active Hospital Problems Diagnosis *Cardiogenic shock (HCC-CMS) Hypervolemia Encounter for hemodialysis (HCC-CMS) Metabolic acidosis Acute on chronic systolic heart failure (HCC-CMS) Atrial fibrillation (HCC-CMS) Type 2 diabetes mellitus Acute hypoxemic respiratory failure (HCC-CMS) JOS (acute kidney injury) (HCC-CMS) Lactic acidosis Encephalopathy Shock liver Coagulopathy (HCC-CMS) Reason for PICC line: Access Recommendations: Triple PICC/Central Line/Pacer history (Review documents, ask patient): No pacer Labs: Lab Results Component Value Date PROTIME 15.7 (H) 07/01/2023 INR 1.4 (H) 07/01/2023 Lab Results Component Value Date WBC 10.34 07/02/2023 Lab Results Component Value Date PLT 79 (L) 07/02/2023 Lab Results Component Value Date CALCGFR 14 (L) 07/02/2023 Blood Cultures (negative at 48, 72 hour for yeast?) Yes , neg from 06/24 Contraindications to PICC Insertion (presence of any requires comment): Hx of thrombus-look for Doppler studies? No Unavailable arm (stroke, injury, surgical site, lymphedema, or fistula)? No Renal compromise needs attending or Nephrology order-Order needed? Yes, clearance from doc to placePICC Devices in the SVC? Yes, has a HD Cath Crutches or Walker? Intubated IVC Filter or Pacer? No Temp >38.5 in 24hrs? No Existing lines? Yes, HD cath and PIV X1 Patient education completed? No, patient is intubated. Obtained consent from sister Federica Nevarez AMADOU CANTU, RN * Edwina Hassan MD - 07/02/2023 1340 EDT NEPHROLOGY PROGRESS NOTE Admit Date: 06/25/2023 Hospital Day: LOS: 7 days Date of Service: 07/02/2023 Attending Physician: Kael Denny MD Reason for Consult: Acute renal failure 24-hour events/Subjective: Seen on dialysis this morning, tolerating procedure well. Patient remains in the ICU. Remains intubated and sedated. Urine output continues to improve. CT angio of the left lower extremity done yesterday, showing active extravasation into the left thigh hematoma. ROS: Unable to assess Current medications: amino acids-protein hydrolysate, 60 mL, feeding tube, BID amiodarone, 400 mg, oral, DAILY aspirin chewable, 81 mg, oral, DAILY cefTRIAXone (ROCEPHIN) 2,000 mg in sodium chloride (NS MBP) 50 mL IVPB, 2,000 mg, intravenous, DAILY dextrose 50 %, , , Dimethicone-Zinc Oxide, , topical, BID indapamide, 5 mg, oral, DAILY multivitamin, 1 Tablet, oral, QHS pantoprazole, 40 mg, intravenous, DAILY rifAXIMin, 550 mg, oral, BID dextrose, , Last Rate: 80 mL/hr at 07/02/23 1300 norepinephrine (LEVOPHED) in NS 32 mcg/mL 250 mL, 0-40 mcg/min, Last Rate: Stopped (06/30/23 210) nutren 2.0, , Last Rate: 30 mL/hr at 07/02/23 1332 propOFol, 5-83 mcg/kg/min, Last Rate: 20 mcg/kg/min (07/02/23 1300) PRN medications: alteplase, dextrose 50 %, dextrose 50 %, fentaNYL citrate (PF), haloperidol lactate, ipratropium-albuteroL, lactulose, lidocaine, lidocaine, magnesium sulfate, papain-alpha amylase-cellulase, polyethylene glycol 3350, senna OR sennosides I+O: Intake/Output Summary (Last 24 hours) at 07/02/2023 1340 Last data filed at 07/02/2023 1300 Gross per 24 hour Intake 2295.83 ml Output 2715 ml Net -419.17 ml Weight: Wt Readings from Last 5 Encounters: 07/02/23 81 kg (178 lb 9.2 oz) Physical Examination: BP 129/87 Pulse 105 Temp 37.1 ??C (98.7 ??F) Resp 22 Ht 182.9 cm (72) Wt 81 kg (178 lb 9.2 oz) SpO2 94% BMI 24.22 kg/m?? General Appearance: Intubated and sedated. HEENT: ETT in place, NG tube in place. Heart: Regular rate and rhythm. Lungs: Clear to auscultation bilaterally, mechanical breath sounds. Abdomen: Soft, bowel sounds are present. Extremities: Trace dependent edema : Alston catheter in place. Extracellular volume is assessed as high Dialysis Access: A dialysis access is present. Data Review: Reviewed in [facility], notable for the following: CBC: Lab Results Component Value Date WBC 10.34 07/02/2023 RBC 3.23 (L) 07/02/2023 HGB 7.7 (L) 07/02/2023 HCT 22.5 (L) 07/02/2023 MCV 70 (L) 07/02/2023 MCH 23.8 (L) 07/02/2023 MCHC 34.2 07/02/2023 PLT 79 (L) 07/02/2023 NEUTROABS 7.66 07/02/2023 Nephrology profile: Lab Results Component Value Date NA 135 (L) 07/02/2023 K 3.4 (L) 07/02/2023 CL 101 07/02/2023 CO2 16 (L) 07/02/2023 BUN 104 (H) 07/02/2023 CREATININE 4.32 (H) 07/02/2023 CALCIUM 7.6 (L) 07/02/2023 PHOS 9.5 (H) 07/02/2023 LABALBU 2.2 (L) 07/02/2023 Recent Labs 06/30/23 0234 07/01/23 0255 07/02/23 0423 CREATININE 2.44* 2.96* 4.32* Lab Results Component Value Date CALCIUM 7.6 (L) 07/02/2023 PHOS 9.5 (H) 07/02/2023 Baseline creatinine: Unknown ASSESSMENT: Derrick Hobson is a 68-year-old male with treated Hep C, COPD, HFrEF, alcohol use disorder, and cocaine use disorder who was admitted for shock with renal and respiratory failure. JOS Metabolic acidosis Shock Volume overload Anemia due to blood loss Hypokalemia Most likely ATN in the setting of shock, requiring pressors. Patient started on CRRT but now able to tolerate iHD. He is also making urine which is encouraging but his clearance is still poor. Shock has also improved generally and urine output is progressively improving which is encouraging Serum bicarbonate is low but should be easily managed with dialysis/improving renal function. RECOMMENDATIONS: -Dialysis today as below and will continue to reassess daily for dialysis needs. -Will continue to assess daily for continued dialysis needs. -Continue to monitor electrolytes. -Monitor intake and output. -Continue renal diet for now -Start sevelamer powder 800 mg via NG tube every 8 hours. Hemodialysis prescription 07/02/2023 Prescribed Weight (Kg): 80 Treatments Per Week: 1 Dialyzer OPTIFLUX 160NR Dialysate concentrate: Potassium 4 mEq/L Calcium 2.5 mEq/L Sodium NA+: 136 Dialysate: Bicarb (mEq/L) 36 Dialysate Temperature (Centigrade) 36.5 BFR mL/min 400 mL/min Dialysate Flow Rate (mL/min) 700 mL/min Duration of Treatment (hrs) 3.5 Hours Primary Access Site Central Line Dialysis - UF Profile: None Edwina Hassan MD Nephrology 07/02/23 * Lori Goncalves, RD - 07/02/[address] note 06/28 TF: Nutren 2.0 at 40 cc/hr Prosource 10 pkts/day Propofol currently at 9.6 cc/hr D10 AT 80 cc/hr +delegate orders to RD MEDS: nephrovite, protonix, rifaxamin LABS: Na 135 K 3.4 mg 1.8 phos 9.5 TG 65 Tbili 4.8 BS 82-229 UOP 1.55 L yesterday, +2 edema, +HD today RT 500 cc + so far today (pt got 4 senna 06/29 and 06/30 Estimated Nutrition Needs: using 80.3 kg MSJ x1.1-1.2 = 5460-5098 kcals/day 1.5 g protein/kg = 120 g protein/day Fluids per primary team Per , D10 will be d/tita ~6pm today and TF rate was increased over w/e d/t hypoglycemia. With change to HD protein needs decrease RD has order writing privileges and will modify the following orders: Decrease TF rate to 30 cc/hr and change prosource to 60 ml BID to provide a total of 1945 hillary (including the propofol), 120 gm pro, 155.5 gm CHO, .5 L FW Recommendations requiring MD orders: Start Tums (not liquid) q 6 hours to bind phos and it will also help thicken stool Monitor closely Lori Goncalves RD * Kael Denny MD - 07/02/2023 0629 EDT Critical Care Progress Note Service Date: 07/02/2023 Admit Date: 06/25/2023 13:23 Reason for Admission to ICU: 68 y.o. male transferred from [facility] for cardiogenic shock and multiorgan failure. Critical and life-threatening events over the past 24 hours: - 1 unit pRBCs transfused overnight for Hgb 6.9 - BG 24 overnight, given D10 Subjective/Objective Subjective Intubated, sedated Review of Systems Review of systems not obtained due to patient factors: Unconsciousness and Ventilated Objective Vital signs: Blood pressure 102/70, pulse 105, temperature 37 ??C (98.6 ??F), temperature source Axillary, resp.rate 19, height 182.9 cm (72), weight 80.7 kg (177 lb 14.6 oz), SpO2 96 %. Ventilator Settings: Mode: VC-SIMV Rate: 14 bmp Vt 620 mL PS:5 cmH2O PEEP 5 cmH2O FiO2: 25 % BIPAP FiO2 FIO2 %: 25 % Flow Physical Exam General: Intubated, sedated. Chronically ill appearing male. HEENT: Normocephalic, atraumatic. NGT in place. Blood crusted in nares. Heart: Tachycardic, and irregularly irregular rhythm. No murmurs appreciated. Lungs: Intubated, symmetric chest rise. Clear to auscultation in anterior mckee bilaterally. No wheezes or crackles. Abdomen: Soft, distended. : Alston in place draining scant dark yellow urine. Rectal tube in place. Extremities: doppler pulses, 1+ bilateral pitting edema in lower legs, 2+ in thighs. Skin: No rashes on exposed skin. No jaundice. Bruises covering bilateral lower arms. Neuro: Sedated, not opening eyes to voice or touch. Ins/Outs: Intake/Output Summary (Last 24 hours) at 07/02/2023 0629 Last data filed at 07/02/2023 0600 Gross per 24 hour Intake 1820.09 ml Output 2100 ml Net -279.91 ml UOP: 1550 Labs CMP Lab Results Component Value Date NA 135 (L) 07/02/2023 K 3.4 (L) 07/02/2023 CL 101 07/02/2023 CO2 16 (L) 07/02/2023 SERGLU 90 07/02/2023 BUN 104 (H) 07/02/2023 CREATININE 4.32 (H) 07/02/2023 CALCGFR 14 (L) 07/02/2023 TP 5.3 (L) 07/02/2023 ALKPHOS 107 07/02/2023 AST 172 (H) 07/02/2023 ALT 312 (H) 07/02/2023 TBIL 4.8 (H) 07/02/2023 CALCIUM 7.6 (L) 07/02/2023 AGRATIO 0.7 (L) 07/02/2023 ANIONGAP 18 (H) 07/02/2023 Lab Results Component Value Date WBC 10.34 07/02/2023 HGB 7.7 (L) 07/02/2023 HCT 22.5 (L) 07/02/2023 MCV 70 (L) 07/02/2023 PLT 79 (L) 07/02/2023 Imaging No new imaging. Cardio N/a Micro 06/24 Bcx x2 - Negative Assessment/Plan Assessment Derrick Hobson is a 68 y.o. male with limited medical records available but a PMH significant for AF, COPD, Hep C who presented for epistaxis, then complicated by hypotension, new severe systolicheart failure, AHRF, electrolyte derangements, and oliguria, consistent with cardiogenic shock, shock liver, and acute kidney failure of uncertain etiology at this time. Transferred to [facility] forinitiation of dialysis. Overall he is recovering from a mixed cardiogenic/distributive shock picture, however his neurologic status has only marginally improved since admission and neurologic prognosis in very guarded at this time. Will continue to give time to heal and work on preventing further hypoglycemic episodes, and need to start discussing goals of care with his family. Otherwise, liver function improving with downtrending LFTs. Hemodynamically stable off pressors and inotropes. Still with acute heart failure though with improved EF. Hypoxic respiratory failure improving on minimal ventilator settings but remains intubated due to AMS. Renal function starting to return, 1500cc UOP yesterday, however continuing IHD until nephrons mature. Plan Pulmonary # Acute hypoxic respiratory failure - resolving # Possible pneumonia Intubated on minimal vent settings. Low suspicion for pneumonia at this time. - Ceftriaxone 2g q24h x7 days (06/26 - ). - remain on minimal sedation, extubate when mental status improves # COPD Does not appear to be in a COPD exacerbation. - Cont PICTURE PAINTER duonebs PRN Cardiac # Hypotension - resolved # Cardiogenic shock - resolved # Severe systolic heart failure (EF 20-25% --> 40%) # Elevated troponin # Elevated lactate - resolved Now hemodynamically off stable pressors and inotropes. EF improved significantly from 20% on admission to 40% on TTE from 06/27. Plan to start introducing GDMT. - HFrEF with regional wall motion abnormalities - will need ischemic workup prior to discharge. - Holding off starting isosordil 10mg, hydralazine 10mg with SBP <120 - Cardiology consulted, appreciate recs: - continue to hold GDMT at least another 24 hrs. If stable tomorrow afternoon with SBP >120 thenwe can start isordil/hydralazine at 10mg/10mg respectively - monitor heart rates, goal Hrs <140 - continue heparin gtt - ideally we should get a repeat assessment of his LVEF when he is no longer in rapid afib. Timing to be determined - ischemic evaluation with [facility] prior to discharge, however there is no urgency to this study and the timing will be dictated by his clinical improvement # Chronic Afib Rate climbing above goal <140 today. - Tele - Holding PICTURE PAINTER metoprolol iso recent cardiogenic shock - Holding AC with femoral hematoma - Amio 400mg PO daily on 06/29; HR high 90s-110s since - Goal HR <140 # Chronic HTN (presumed from med list) - Hold PICTURE PAINTER metoprolol, spironolactone; likely restart as part of GDMT in the coming days. Renal # Acute kidney failure, suspected ATN - resolving # Diffuse edema - improving # Hyperkalemia - resolved on HD L IJ dilaysis line in place. On iHD with normalization of electrolytes. Now with return of some renal funtion with good UOP yesterday, however expect that nephrons are immature and will need more time before they are able to balance his electrolytes. Will continue iHD for now. - Transitioned from CRRT to intermittent HD 06/28. - Nephrology consulted, appreciate recs - Goal net neg 0.5L/day - Avoid nephrotoxins - Trend BMP daily - Strict I/O GI Nutrition # Shock liver - resolving - Management of cardiogenic shock as above - Avoid hepatotoxins - Daily CMP Last BM: 06/28 - Trickle tube feeds - nutren 20 --> 40cc/hr - bowel regimen - thiamine 500mg IV TID x3 days Infectious Disease Low suspicion for infective process at this time. - Ceftriaxone 2g q24h x7 days (06/26 - ) Hematologic # L femoral hematoma - Managing with pressure. Appears stable. Will consult IR for intervention if Hgb drops. - Hold heparin - q12h CBC # Microcytic anemia - Likely iron deficiency/acute blood loss anemia complicated by DIC/hemolysis - CTM # Coagulopathy # DIC - improving Pattern of rising PTT, PT, D-dimer and a low fibrinogen is consistent with DIC, possibly complicated by suspected chronic liver disease though difficult to evaluate given lack of previous labs. Will continue to monitor for signs of active bleeding and repeat coags with or without TEG in the event of further bleeding. - Daily PT/PTT - S/p 1 unit FFP 06/25 - S/p 2x Vit K 10mg - hold further doses with improving coags # Thrombocytopenia - stable CTM. Unlikely to be tax compliance representative of HIT with timing of onset (first exposed 06/24); plt count improved today. More likely due to his systemic illness. Neurologic # Decreased mentation # Concern for anoxic brain injury Multiple sedation wean attempts in this admission, pt continues to be altered with very slight improvement in mental status since admission. Lack of withdrawal from painful stimuli is a poor prognostic indicator. Concern for hypoactive ICU delirium vs an anoxic/hypoglycemic brain injury. Also treating empirically for hepatic encephalopathy though much less likely as he is believed to have acute liver failure rather than cirrhosis - MRI without evidence of anoxic or hypoglycemic brain injury - lactulose, rifaximin - sedation/anxiety management with haldol, fentanyl PRN over propofol - Goals of care conversation with family. # Facial twitches - resolved One-sided facial twitches observed by nursing staff on admission. EEG negative while off sedation -and now discontinued. # Mood disorder - Cont PICTURE PAINTER Citalopram 20mg daily --> d/c'ed to avoid potential medication interactions consider resumption after conscious # ?Neuropathic pain - Hold PICTURE PAINTER Cyclobenzaprine 10mg daily, Gabapentin 800mg TID with liver/kidney injury Endocrine # Intermittent hypoglycemia - resolved Hypoglycemic to 12 prior to transfer, again to 24 on and BG generally 70s- 110s. Unclear etiology of this hypoglycemia, could be reflective of known hepatic dysfunction although would havve expected it to be worse while he was in shock liver and improving now. Suspect that we are not meeting his calorie needs - only 1570 calories/day with current tube feed regimen. Will increase this. Initiated some workup with serum AM cortisol (normal); if he continues to be hypoglycemic with increased tube feeds, will consider further workup. - Continue to monitor with POC glucose q6h. - Nutren 20 --> 40 cc/hr - Goal glucose 100-180 Prophylaxis - DVT ppx - Holding with femoral hematoma - HOB elevated - maintain SCDs - Cont PICTURE PAINTER pantoprazole Communication Code Status: Full Code. Critical Care Daily Checklist: Completed Khushi Young MD Family Medicine PGY1 Epic Chat or Pager #[phone] 07/02/23 6:29 Attending attestation statement: I saw and examined the patient with the resident/medical student and agree with the findings and plans as documented, and as amended in blue. Clinical Condition: Derrick Hobson is a critically ill 68 y.o. male. Over the past 24 hours, there has been a high probability of sudden, clinically significant or life threatening deterioration in the patient???s condition, which include the following diagnoses which I have managed: 1. JOS (acute kidney injury) (HCC-CMS) 2. Lactic acidosis 3. Shock liver 4. Cardiogenic shock (HCC-CMS) 5. Acute hypoxemic respiratory failure (HCC-CMS) 6. Coagulopathy (HCC-CMS) 7. Encephalopathy 8. DIC (disseminated intravascular coagulation) (HCC-CMS) 9. Type 2 diabetes mellitus with other specified complication, without long-term current use of insulin (HCC-CMS) 10. Acute on chronic systolic heart failure (HCC-CMS) 11. Atrial fibrillation, unspecified type (HCC-CMS) 12. Metabolic acidosis 13. Hypervolemia, unspecified hypervolemia type 14. Encounter for hemodialysis (HCC-CMS) Critical Care time was provided in the form of interventions to treat and prevent further life threatening deterioration of the patient???s condition including: management of mechanical ventilation, and high complexity decision making regarding need for additional imaging studies and / or interventional radiology interventions. My bedside involvement was required to monitor and direct the critical care that has been provided.Exclusive of procedures, my critical care time is 46 minutes. Kael Denny MD Pulmonary & Critical Care Medicine 07/02/2023 * Hilda Kolb, RT - 07/02/2023 0600 EDT Respiratory Progress Note Indications for Respiratory therapy: VENT Data Vitals: Heart Rate: (!) 106 BPM, Resp: 19, SpO2: 96 % FIO2/O2 Device: , , O2 Device: Intubated, FIO2 %: 25 % RT Orders: MECHANICAL VENT 7.5 ett 24 cm @ the lip VC/SIMV 620/14/+5/25%/PS 5 DUO PRN Action/Events Respiratory events; Pt remains intubated/ sedated unable to extubate d/t hemodynamic instability with vent/sedation wean and AMS, unable to follow commands. Tolerating VC/SIMV 620/14/+5/25%/PS 5 vent settings with no changes made today. Plan of care on going RT FOSTER 07/02/23 * Lupe Ramirez, RT - 07/01/2023 1620 EDT Respiratory Progress Note Indications for Respiratory therapy: VENT Data Vitals: Heart Rate: 103 BPM, Resp: 17, SpO2: 99 % FIO2/O2 Device: , , O2 Device: Intubated, FIO2 %: 25 % RT Orders: MECHANICAL VENT 7.5 ett 24 cm @ the lip VC/SIMV 620/14/+5/25%/PS 5 DUO PRN Action/Events Respiratory events; Pt remains intubated/ sedated unable to extubate d/t hemodynamic instability with vent/sedation wean and AMS, unable to follow commands. Tolerating above vent settings with no changes made today RT RANDY 07/01/23 * Edwina Hassan MD - 07/01/2023 1429 EDT NEPHROLOGY PROGRESS NOTE Admit Date: 06/25/2023 Hospital Day: LOS: 6 days Date of Service: 07/01/2023 Attending Physician: Kael Denny MD Reason for Consult: Acute renal failure 24-hour events/Subjective: Patient remains in the ICU. Remains intubated and sedated. HD yesterday, well-tolerated. ROS: Unable to assess Current medications: amino acids-protein hydrolysate, 30 mL, oral, DAILY amino acids-protein hydrolysate, 90 mL, oral, TID amiodarone, 400 mg, oral, DAILY aspirin chewable, 81 mg, oral, DAILY cefTRIAXone (ROCEPHIN) 2,000 mg in sodium chloride (NS MBP) 50 mL IVPB, 2,000 mg, intravenous, DAILY Dimethicone-Zinc Oxide, , topical, BID multivitamin, 1 Tablet, oral, QHS pantoprazole, 40 mg, intravenous, DAILY rifAXIMin, 550 mg, oral, BID thiamine (VITAMIN B-1) 500 mg in sodium chloride (NS) 0.9 % 50 mL IVPB, 500 mg, intravenous, TID norepinephrine (LEVOPHED) in NS 32 mcg/mL 250 mL, 0-40 mcg/min, Last Rate: Stopped (06/30/232101) nutren 2.0, , Last Rate: 20 mL/hr at 07/01/23 1300 propOFol, 5-83 mcg/kg/min, Last Rate: 20 mcg/kg/min (07/01/23 1300) PRN medications: alteplase, alteplase, fentaNYL citrate (PF), haloperidol lactate, ipratropium-albuteroL, lactulose, lidocaine, lidocaine, magnesium sulfate, papain-alpha amylase-cellulase, polyethylene glycol 3350, senna OR sennosides I+O: Intake/Output Summary (Last 24 hours) at 07/01/2023 1429 Last data filed at 07/01/2023 1300 Gross per 24 hour Intake 1642.37 ml Output 1090 ml Net 552.37 ml Weight: Wt Readings from Last 5 Encounters: 06/30/23 80.7 kg (177 lb 14.6 oz) Physical Examination: BP 111/69 Pulse 102 Temp 37 ??C (98.6 ??F) Resp 17 Ht 182.9 cm (72) Wt 80.7 kg (177 lb 14.6 oz) SpO2 (!) 89% BMI 24.13 kg/m?? General Appearance: Intubated and sedated. HEENT: ETT in place, NG tube in place. Heart: Regular rate and rhythm. Lungs: Clear to auscultation bilaterally, mechanical breath sounds. Abdomen: Soft, bowel sounds are present. Extremities: Trace dependent edema : Alston catheter in place. Extracellular volume is assessed as high Dialysis Access: A dialysis access is present. Data Review: Reviewed in PRISM, notable for the following: CBC: Lab Results Component Value Date WBC 10.93 (H) 07/01/2023 RBC 3.24 (L) 07/01/2023 HGB 7.8 (L) 07/01/2023 HCT 23.1 (L) 07/01/2023 MCV 71 (L) 07/01/2023 MCH 24.1 (L) 07/01/2023 MCHC 33.8 07/01/2023 PLT 80 (L) 07/01/2023 NEUTROABS 7.07 07/01/2023 Nephrology profile: Lab Results Component Value Date NA 134 (L) 07/01/2023 K 3.7 07/01/2023 CL 101 07/01/2023 CO2 20 (L) 07/01/2023 BUN 64 (H) 07/01/2023 CREATININE 2.96 (H) 07/01/2023 CALCIUM 7.6 (L) 07/01/2023 PHOS 3.8 06/28/2023 LABALBU 1.8 (L) 07/01/2023 Recent Labs 06/29/23 0441 06/30/23 0234 07/01/23 0255 CREATININE 1.65* 2.44* 2.96* Lab Results Component Value Date CALCIUM 7.6 (L) 07/01/2023 PHOS 3.8 06/28/2023 Baseline creatinine: Unknown ASSESSMENT: Derrick Hobson is a 68-year-old male with treated Hep C, COPD, HFrEF, alcohol use disorder, and cocaine use disorder who was admitted for shock with renal and respiratory failure. JOS Metabolic acidosis Shock Volume overload Most likely ATN in the setting of shock, requiring pressors. Patient started on CRRT but now able to tolerate iHD. He is also making some urine which is encouraging and should help with his volume overload. Shock has also improved generally and urine output is progressively improving which is encouraging Serum bicarbonate is low but should be easily managed with dialysis/improving renal function. RECOMMENDATIONS: -Will continue to assess daily for continued dialysis needs. -Continue to monitor electrolytes. Phosphorus with am labs. -Monitor intake and output. -Continue renal diet for now Edwina Hassan MD Nephrology 07/01/23 * Kael Denny MD - 07/01/2023 0611 EDT Critical Care Progress Note Service Date: 07/01/2023 Admit Date: 06/25/2023 13:23 Reason for Admission to ICU: 68 y.o. male transferred from [facility] for cardiogenic shock and multiorgan failure. Critical and life-threatening events over the past 24 hours: - L groin hematoma noted by nursing at site of previous A-line. Subjective/Objective Subjective Intubated, sedated Review of Systems Review of systems not obtained due to patient factors: Unconsciousness and Ventilated Objective Vital signs: Blood pressure 100/69, pulse 102, temperature 36.3 ??C (97.4 ??F), temperature source Axillary, resp. rate 17, height 182.9 cm (72), weight 80.7 kg (177 lb 14.6 oz), SpO2 96 %. Ventilator Settings: Mode: VC-SIMV Rate: 14 bmp Vt 620 mL PS:5 cmH2O PEEP 5 cmH2O FiO2: 25 % BIPAP FiO2 FIO2 %: 25 % Flow Physical Exam General: Intubated, sedated. Chronically ill appearing male. HEENT: Normocephalic, atraumatic. NGT in place. Blood crusted in nares. Heart: Tachycardic, and irregularly irregular rhythm. No murmurs appreciated. Lungs: Intubated, symmetric chest rise. Clear to auscultation in anterior mckee bilaterally. No wheezes or crackles. Abdomen: Soft, distended. : Alston in place draining scant dark yellow urine. Rectal tube in place. Extremities: doppler pulses, 2+ bilateral pitting edema Skin: No rashes on exposed skin. No jaundice. Neuro: Opens eyes to voice and spontaneously. Not following commands, not seeming to attempt to communicate. Pinching bilateral arms produces head shaking but no withdrawal from pain. Movement of feet from touching, not clearly withdrawing from pain. Ins/Outs: Intake/Output Summary (Last 24 hours) at 07/01/2023 0611 Last data filed at 07/01/2023 0600 Gross per 24 hour Intake 2339.02 ml Output 865 ml Net 1474.02 ml Labs CMP Lab Results Component Value Date NA 134 (L) 07/01/2023 K 3.7 07/01/2023 CL 101 07/01/2023 CO2 20 (L) 07/01/2023 SERGLU 88 07/01/2023 BUN 64 (H) 07/01/2023 CREATININE 2.96 (H) 07/01/2023 CALCGFR 22 (L) 07/01/2023 TP 4.8 (L) 07/01/2023 ALKPHOS 96 07/01/2023 AST 250 (H) 07/01/2023 ALT 378 (H) 07/01/2023 TBIL 5.1 (H) 07/01/2023 CALCIUM 7.6 (L) 07/01/2023 AGRATIO 0.6 (L) 07/01/2023 ANIONGAP 13 07/01/2023 Lab Results Component Value Date WBC 10.40 07/01/2023 HGB 7.2 (L) 07/01/2023 HCT 21.4 (L) 07/01/2023 MCV 71 (L) 07/01/2023 PLT 72 (L) 07/01/2023 Imaging 06/29 CT Angio Lower Extremity IMPRESSION 1. Active extravasation into the ill-defined left thigh hematoma, arising from the superficial femoral artery 2. Marked thickening of the urinary bladder, similar to prior. 3. Aneurysm of the infrarenal abdominal aorta measuring up to 3.5 cm, similar to prior. 4. Mild subcutaneous edema, more confluent in the left lower extremity. Cardio N/a Micro 06/24 Bcx x2 - Negative Assessment/Plan Assessment Derrick Hobson is a 68 y.o. male with limited medical records available but a PMH significant for AF, COPD, Hep C who presented for epistaxis, then complicated by hypotension, new severe systolicheart failure, AHRF, electrolyte derangements, and oliguria, consistent with cardiogenic shock, shock liver, and acute kidney failure of uncertain etiology at this time. Transferred to [facility] forinitiation of dialysis. Overall he is recovering from a mixed cardiogenic/distributive shock picture. He continues to be altered, now opening his eyes but not following commands. Plan to reassess after a longer period off sedation and use precedex/haldol as needed for agitation. MRI head obtained without evidence of anoxic/hypoglycemic injury. Otherwise, liver function improving with downtrending LFTs. Hemodynamically stable off pressors and inotropes. Still with acute heart failure though with improved EF. Hypoxic respiratory failure improving on minimal ventilator settings but remains intubated due to AMS. Renal function has not yet returned; continuing IHD. Plan Pulmonary # Acute hypoxic respiratory failure - resolving # Possible pneumonia Intubated on fairly minimal vent settings. Unclear from records whether he was intubated for respiratory support needs or for airway protection, but continues to be ventilated due to AMS. Chest CT with consolidations that are somewhat concerning for pneumonia, and findings of pulmonary edema which is consistent with his overall clinical picture. - Intubated - Ceftriaxone 2g q24h x7 days (06/26 - ). - remain on minimal sedation, extubate when mental status improves # COPD Does not appear to be in a COPD exacerbation. - Cont PICTURE PAINTER albuterol PRN - Cont PICTURE PAINTER duonebs Cardiac # Hypotension - resolved # Cardiogenic shock - resolved # Severe systolic heart failure (EF 20-25% --> 40%) # Elevated troponin # Elevated lactate - resolved Now hemodynamically off stable pressors and inotropes. EF improved significantly from 20% on admission to 40% on TTE from 06/27. Plan to start introducing GDMT. - HFrEF with regional wall motion abnormalities - will need ischemic workup prior to discharge. - Holding off starting isosordil 10mg, hydralazine 10mg with SBP <120 - Cardiology consulted, appreciate recs: - continue to hold GDMT at least another 24 hrs. If stable tomorrow afternoon with SBP >120 thenwe can start isordil/hydralazine at 10mg/10mg respectively - monitor heart rates, goal Hrs <140 - continue heparin gtt - ideally we should get a repeat assessment of his LVEF when he is no longer in rapid afib. Timing to be determined - ischemic evaluation with [facility] prior to discharge, however there is no urgency to this study and the timing will be dictated by his clinical improvement # Chronic Afib Rate climbing above goal <140 today. - Tele - Holding PICTURE PAINTER metoprolol iso recent cardiogenic shock - Holding AC with femoral hematoma - Amio 400mg PO daily on 06/29; HR high 90s-110s since - Goal HR <140 # Chronic HTN (presumed from med list) - Hold PICTURE PAINTER metoprolol, spironolactone; likely restart as part of GDMT in the coming days. Renal # Acute kidney failure, suspected ATN # Diffuse edema # Hyperkalemia - resolved on CRRT L IJ dilaysis line in place. On CRRT with normalization of electrolytes. Continues anuric but expect recovery from ATN and return of some renal function in the coming weeks. Failed lasix challenge 06/28. - Transitioned from CRRT to intermittent HD 06/28. - Nephrology consulted, appreciate recs - Goal net neg 1L/day - Avoid nephrotoxins - Trend BMP daily - Strict I/O GI Nutrition # Shock liver - resolving - Management of cardiogenic shock as above - Avoid hepatotoxins - Daily CMP Last BM: 06/28 - Trickle tube feeds - RD concentrated TFs to decrease volume - bowel regimen - thiamine 500mg IV TID x3 days Infectious Disease Concern for infection/septic shock; previously thought to have toxic shock syndrome and treated with cefepime and vancomycin. On further reflection, it is possible though unlikely that he did have toxic shock syndrome and that the rash was missed, but regardless at this point he would require only symptomatic care which he is receiving. Minimal benefit in starting clindamycin at this point. Is more likely that the distributive component of his shock was a sequelae of his cardiogenic shock. - Ceftriaxone 2g q24h x7 days (06/26 - ) Hematologic # L femoral hematoma - Managing with pressure. Will consult IR for intervention if Hgb drops. - Hold heparin - q6h CBC # Microcytic anemia - Likely iron deficiency/acute blood loss anemia complicated by DIC/hemolysis - CTM # Coagulopathy # DIC - improving Pattern of rising PTT, PT, D-dimer and a low fibrinogen is consistent with DIC, possibly complicated by suspected chronic liver disease though difficult to evaluate given lack of previous labs. Will continue to monitor for signs of active bleeding and repeat coags with or without TEG in the event of further bleeding. - Daily PT/PTT - S/p 1 unit FFP 06/25 - S/p 2x Vit K 10mg - hold further doses with improving coags # Thrombocytopenia - improved CTM. Unlikely to be tax compliance representative of HIT with timing of onset (first exposed 06/24); plt count improved today. More likely due to his systemic illness. Neurologic # Decreased mentation # Concern for anoxic brain injury Multiple sedation wean attempts in this admission, pt continues to be altered without following commands and opening eyes rarely while off sedation. Lack of withdrawal from painful stimuli is a poor prognostic indicator. Concern for hypoactive ICU delirium vs an anoxic/hypoglycemic brain injury. Also treating empirically for hepatic encephalopathy though much less likely as he is believed to haveacute liver failure rather than cirrhosis - MRI without evidence of anoxic or hypoglycemic brain injury - lactulose, rifaximin - sedation/anxiety management with haldol, fentanyl PRN over propofol # Facial twitches - resolved One-sided facial twitches observed by nursing staff on admission. EEG negative while off sedation -and now discontinued. # Mood disorder - Cont PICTURE PAINTER Citalopram 20mg daily --> d/c'ed to avoid potential medication interactions consider resumption after conscious # ?Neuropathic pain - Hold PICTURE PAINTER Cyclobenzaprine 10mg daily, Gabapentin 800mg TID with liver/kidney injury Endocrine # Hypoglycemia - resolved Hypoglycemic to 12 prior to transfer. Now resolved. Unclear etiology of this hypoglycemia, could indicate severe hepatic dysfunction however would not expected to resolve so quickly. Continue to monitor with POC glucose q6h. - Goal glucose 100-180 Prophylaxis - DVT ppx - Holding with femoral hematoma - HOB elevated - maintain SCDs - Cont PICTURE PAINTER pantoprazole Communication Code Status: Full Code. Critical Care Daily Checklist: Completed Khushi Young MD Family Medicine PGY1 Epic Chat or Pager #[phone] 07/01/23 6:21 Attending attestation statement: I saw and examined the patient with the resident/medical student and agree with the findings and plans as documented, and as amended in blue. Clinical Condition: Derrick Hobson is a critically ill 68 y.o. male. Over the past 24 hours, there has been a high probability of sudden, clinically significant or life threatening deterioration in the patient???s condition, which include the following diagnoses which I have managed: 1. JOS (acute kidney injury) (HCC-CMS) 2. Lactic acidosis 3. Shock liver 4. Cardiogenic shock (HCC-CMS) 5. Acute hypoxemic respiratory failure (HCC-CMS) 6. Coagulopathy (HCC-CMS) 7. Encephalopathy 8. DIC (disseminated intravascular coagulation) (HCC-CMS) 9. Type 2 diabetes mellitus with other specified complication, without long-term current use of insulin (HCC-CMS) 10. Acute on chronic systolic heart failure (HCC-CMS) 11. Atrial fibrillation, unspecified type (HCC-CMS) 12. Metabolic acidosis 13. Hypervolemia, unspecified hypervolemia type 14. Encounter for hemodialysis (HCC-CMS) Critical Care time was provided in the form of interventions to treat and prevent further life threatening deterioration of the patient???s condition including: management of mechanical ventilation, and high complexity decision making regarding candidacy for extubation. My bedside involvement was required to monitor and direct the critical care that has been provided.Exclusive of procedures, my critical care time is 45 minutes. Kael Denny MD Pulmonary & Critical Care Medicine 07/01/2023 * Hilda Kolb, RT - 07/01/2023 0550 EDT Respiratory Progress Note Indications for Respiratory therapy: VENT Data Vitals: Heart Rate: (!) 114 BPM, Resp: 17, SpO2: 95 % FIO2/O2 Device: , , O2 Device: Intubated, FIO2 %: 25 % RT Orders: MECHANICAL VENT 7.5 ett 24 cm @ the lip VC/SIMV 620/14/+5/25%/PS 5 DUO PRN Action/Events Respiratory events; Pt remains intubated/ sedated unable to extubate d/t hemodynamic instability with vent/sedation wean and AMS, unable to follow commands. Pt tolerated PS 8/5 for 29 minutes before pt HR started to incline to 120s Pt placed on VC/SIMV 620/14/+5/25%/PS 5. Plan of care on going RT FOSTER 07/01/23 * Edwina Hassan MD - 06/30/20231946 EDT NEPHROLOGY PROGRESS NOTE Admit Date: 06/25/2023 Hospital Day: LOS: 5 days Date of Service: 06/30/2023 Attending Physician: Kael Denny MD Reason for Consult: Acute renal failure 24-hour events/Subjective: Patient remains in the ICU. Remains intubated and sedated, on Levophed at the time of evaluation. HD session today, well tolerated ROS: Unable to assess Current medications: amino acids-protein hydrolysate, 30 mL, oral, DAILY amino acids-protein hydrolysate, 90 mL, oral, TID amiodarone, 400 mg, oral, DAILY aspirin chewable, 81 mg, oral, DAILY cefTRIAXone (ROCEPHIN) 2,000 mg in sodium chloride (NS MBP) 50 mL IVPB, 2,000 mg, intravenous, DAILY Dimethicone-Zinc Oxide, , topical, BID multivitamin, 1 Tablet, oral, QHS pantoprazole, 40 mg, intravenous, DAILY rifAXIMin, 550 mg, oral, BID thiamine (VITAMIN B-1) 500 mg in sodium chloride (NS) 0.9 % 50 mL IVPB, 500 mg, intravenous, TID heparin, 25 Units/kg/hr (Adjusted), Last Rate: 25 Units/kg/hr (06/30/231899) norepinephrine (LEVOPHED) in NS 32 mcg/mL 250 mL, 0-40 mcg/min, Last Rate: 2 mcg/min (06/30/231899) nutren 2.0, , Last Rate: 20 mL/hr at 06/30/231899 propOFol, 5-83 mcg/kg/min, Last Rate: 15 mcg/kg/min (06/30/23 1900) PRN medications: alteplase, fentaNYL citrate (PF), haloperidol lactate, heparin OR heparin, ipratropium-albuteroL, lactulose, lidocaine, magnesium sulfate, papain-alpha amylase-cellulase, polyethylene glycol 3350, senna OR sennosides I+O: Intake/Output Summary (Last 24 hours) at 06/30/20231946 Last data filed at 06/30/20231899 Gross per 24 hour Intake 2714.65 ml Output 900 ml Net 1814.65 ml Weight: Wt Readings from Last 5 Encounters: 06/30/23 80.7 kg (177 lb 14.6 oz) Physical Examination: BP 111/81 Pulse 102 Temp 36.8 ??C (98.2 ??F) Resp 18 Ht 182.9 cm (72) Wt 80.7 kg (177 lb14.6 oz) SpO2 96% BMI 24.13 kg/m?? General Appearance: Intubated and sedated. HEENT: ETT in place, NG tube in place, curled in the oral cavity at the time of evaluation. Heart: Regular rate and rhythm. Lungs: Clear to auscultation bilaterally, mechanical breath sounds. Abdomen: Soft, bowel sounds are present. Extremities: Trace edema bilaterally : Alston catheter in place. Extracellular volume is assessed as high Dialysis Access: A dialysis access is present. Data Review: Reviewed in PRISM, notable for the following: CBC: Lab Results Component Value Date WBC 12.81 (H) 06/30/2023 RBC 3.51 (L) 06/30/2023 HGB 8.3 (L) 06/30/2023 HCT 24.9 (L) 06/30/2023 MCV 71 (L) 06/30/2023 MCH 23.6 (L) 06/30/2023 MCHC 33.3 06/30/2023 PLT 94 (L) 06/30/2023 NEUTROABS 10.47 (H) 06/30/2023 Nephrology profile: Lab Results Component Value Date NA 137 06/30/2023 K 3.8 06/30/2023 CL 106 06/30/2023 CO2 20 (L) 06/30/2023 BUN 46 (H) 06/30/2023 CREATININE 2.44 (H) 06/30/2023 CALCIUM 7.9 (L) 06/30/2023 PHOS 3.8 06/28/2023 LABALBU 2.1 (L) 06/30/2023 Recent Labs 06/28/23 0536 06/29/23 0441 06/30/23 0234 CREATININE 0.51* 1.65* 2.44* Lab Results Component Value Date CALCIUM 7.9 (L) 06/30/2023 PHOS 3.8 06/28/2023 Baseline creatinine: Unknown ASSESSMENT: Derrick Hobson is a 68-year-old male with treated Hep C, COPD, HFrEF, alcohol use disorder, and cocaine use disorder who was admitted for shock with renal and respiratory failure. JOS Metabolic acidosis Shock Volume overload Most likely ATN in the setting of shock, requiring pressors. Patient started on CRRT but now able to tolerate iHD. He is also making some urine which is encouraging and should help with his volume overload. Shock has also improved generally and hopefully, we'll see UOP continue to improve. Serum bicarbonate is low but should be easily managed with dialysis. RECOMMENDATIONS: -Will continue to assess daily for continued dialysis needs. -Continue to monitor electrolytes. Phosphorus with am labs. -Monitor intake and output. Hemodialysis 06/30/2023 Prescribed Weight (Kg): 80 Treatments Per Week: 1 Dialyzer OPTIFLUX 160NR Dialysate concentrate: Potassium 2 mEq/L Calcium 2.5 mEq/L Sodium NA+: 136 Dialysate: Bicarb (mEq/L) 36 Dialysate Temperature (Centigrade) 36.5 BFR mL/min 400 mL/min Dialysate Flow Rate (mL/min) 600 mL/min Duration of Treatment (hrs) 3 Hours Primary Access Site Central Line Dialysis - UF Profile: None Edwina Hassan MD Nephrology 06/30/23 * Lupe Ramirez, RT - 06/30/2023 0726 EDT Respiratory Progress Note Indications for Respiratory therapy: Vent Data Vitals: Heart Rate: 94 BPM, Resp: 16, SpO2: 95 % FIO2/O2 Device: , , O2 Device: Intubated, FIO2 %: 25 % RT Orders: MECHANICAL VENT 7.5 ett 24 cm @ the lip VC/SIMV 620/14/+5/25%/PS 5 DUO PRN Action/Events Respiratory events; Pt remains intubated/ sedated unable to extubate d/t AMS, unable to follow commands. Tolerating SIMV well Cough-productive moderate thick/thin white/clear secretions. RT RANDY 06/30/23 * Kael Denny MD - 06/30/2023 0648 EDT Critical Care Progress Note Service Date: 06/30/2023 Admit Date: 06/25/2023 13:23 Reason for Admission to ICU: 68 y.o. male transferred from [facility] for cardiogenic shock and multiorgan failure. Critical and life-threatening events over the past 24 hours: - upper ext DVT scan without DVT, but has superficial thrombus Subjective/Objective Subjective intubated Review of Systems Review of systems not obtained due to patient factors: Unconsciousness and Ventilated Objective Vital signs: Blood pressure 111/67, pulse 102, temperature 37.1 ??C (98.7 ??F), resp. rate 18, height 182.9 cm (72), weight 80.7 kg (177 lb 14.6 oz), SpO2 91 %. Ventilator Settings: Mode: VC-SIMV Rate: 14 bmp Vt 620 mL PS:5 cmH2O PEEP 5 cmH2O FiO2: 25 % BIPAP FiO2 FIO2 %: 25 % Flow Physical Exam General: Intubated, sedation minimal. Chronically ill appearing male. HEENT: Normocephalic, atraumatic. NGT in place. Blood crusted in nares. Heart: Tachycardic, and irregularly irregular rhythm. No murmurs appreciated. Lungs: Intubated, symmetric chest rise. Clear to auscultation in anterior mckee bilaterally. No wheezes or crackles. Abdomen: Soft, distended. : Alston in place draining scant dark yellow urine. Rectal tube in place. Extremities: doppler pulses, 2+ bilateral pitting edema Skin: No rashes on exposed skin. No jaundice. Neuro: Opens eyes to voice and spontaneously. Not following commands, not seeming to attempt to communicate. Pinching bilateral arms produces head shaking but no withdrawal from pain. Movement of feet from touching, not clearly withdrawing from pain. Ins/Outs: Intake/Output Summary (Last 24 hours) at 06/30/2023 1048 Last data filed at 06/30/2023 1000 Gross per 24 hour Intake 3415.05 ml Output 495 ml Net 2920.05 ml Labs CMP Lab Results Component Value Date NA 137 06/30/2023 K 3.8 06/30/2023 CL 106 06/30/2023 CO2 20 (L) 06/30/2023 SERGLU 84 06/30/2023 BUN 46 (H) 06/30/2023 CREATININE 2.44 (H) 06/30/2023 CALCGFR 28 (L) 06/30/2023 TP 5.1 (L) 06/30/2023 ALKPHOS 127 (H) 06/30/2023 AST 569 (H) 06/30/2023 ALT 617 (H) 06/30/2023 TBIL 6.1 (H) 06/30/2023 CALCIUM 7.9 (L) 06/30/2023 AGRATIO 0.7 (L) 06/30/2023 ANIONGAP 11 06/30/2023 Lab Results Component Value Date WBC 12.81 (H) 06/30/2023 HGB 8.3 (L) 06/30/2023 HCT 24.9 (L) 06/30/2023 MCV 71 (L) 06/30/2023 PLT 94 (L) 06/30/2023 Imaging 06/28: upper extremity duplex Superficial vein thrombosis within the left upper extremity. Negative for deep vein thrombosis Negative for deep and superficial vein thrombosis within the right upper extremity. 06/28 MRI head 1. No MRI evidence of anoxic or hypoglycemic brain injury. 2. Mild restricted diffusion, T1 hypointensity, and FLAIR hyperintensity throughout the majority ofthe calvarium, findings which could represent an infiltrative marrow process. A dedicated nuclear medicine bone scan scan is recommended for further characterization and to assess for other areas of i nvolvement. Cardio 06/27 TTE: Left Ventricle: The left ventricular cavity was normal in size. Left ventricular systolicfunction was moderately decreased with an ejection fraction of 40%. Left ventricular wall thicknesswas normal. There was diffuse hypokinesis. The patient was in rapid atrial fibrillation throughout the study. This rhythm could contribute to the overall reduced EF Right Ventricle: The right ventricular cavity was mildly dilated in size. Right ventricular systolic function was low normal Micro 06/24 Bcx x2 - No growth to date Assessment/Plan Assessment Derrick Hobson is a 68 y.o. male with limited medical records available but a PMH significant for AF, COPD, Hep C who presented for epistaxis, then complicated by hypotension, new severe systolicheart failure, AHRF, electrolyte derangements, and oliguria, consistent with cardiogenic shock, shock liver, and acute kidney failure of uncertain etiology at this time. Transferred to [facility] forinitiation of dialysis. Overall he is recovering from a mixed cardiogenic/distributive shock picture. He continues to be altered, now opening his eyes but not following commands. Plan to reassess after a longer period off sedation and use precedex/haldol as needed for agitation. MRI head obtained without evidence of anoxic/hypoglycemic injury. Otherwise, liver function improving with downtrending LFTs. Hemodynamically stable off pressors and inotropes. Still with acute heart failure though with improved EF. Hypoxic respiratory failure improving on minimal ventilator settings but remains intubated due to AMS. Renal function has not yet returned; continuing IHD. Plan Pulmonary # Acute hypoxic respiratory failure - resolving # Possible pneumonia Intubated on fairly minimal vent settings. Unclear from records whether he was intubated for respiratory support needs or for airway protection, but continues to be ventilated due to AMS. Chest CT with consolidations that are somewhat concerning for pneumonia, and findings of pulmonary edema which is consistent with his overall clinical picture. - Intubated - Ceftriaxone 2g q24h x7 days (06/26 - ). - remain on minimal sedation, extubate when mental status improves # COPD Does not appear to be in a COPD exacerbation. - Cont PICTURE PAINTER albuterol PRN - Cont PICTURE PAINTER duonebs Cardiac # Hypotension - resolved # Cardiogenic shock - resolved # Severe systolic heart failure (EF 20-25% --> 40%) # Elevated troponin # Elevated lactate - resolved Now hemodynamically off stable pressors and inotropes. EF improved significantly from 20% on admission to 40% on TTE from 06/27. Plan to start introducing GDMT today. - HFrEF with regional wall motion abnormalities - will need ischemic workup prior to discharge. - Cardiology consulted, appreciate recs: - continue to hold GDMT at least another 24 hrs. If stable tomorrow afternoon with SBP >120 thenwe can start isordil/hydralazine at 10mg/10mg respectively - monitor heart rates, goal Hrs <140 - continue heparin gtt - ideally we should get a repeat assessment of his LVEF when he is no longer in rapid afib. Timing to be determined - ischemic evaluation with [facility] prior to discharge, however there is no urgency to this study and the timing will be dictated by his clinical improvement # Chronic Afib Rate climbing above goal <140 today. - Tele - Holding PICTURE PAINTER metoprolol iso recent cardiogenic shock - AC with heparin gtt - Start amiodarone drip --> transition to PO amio (decrease fluid patient is getting and HR controlled) - Goal HR <140 # Chronic HTN (presumed from med list) - Hold PICTURE PAINTER metoprolol, spironolactone; likely restart as part of GDMT in the coming days. Renal # Acute kidney failure, suspected ATN # Diffuse edema # Hyperkalemia - resolved on CRRT L IJ dilaysis line in place. On CRRT with normalization of electrolytes. Continues anuric but expect recovery from ATN and return of some renal function in the coming weeks. - Transitioned from CRRT to intermittent HD 06/28. - Nephrology consulted, appreciate recs - Goal net neg 1L/day - Avoid nephrotoxins - Trend BMP daily - Strict I/O - lasix challenge today: 200mg IV lasix + 1g diuril GI Nutrition # Shock liver - resolving - Management of cardiogenic shock as above - Avoid hepatotoxins - Daily CMP Last BM: 06/28 - Trickle tube feeds - RD concentrated TFs to decrease volume - bowel regimen - thiamine 500mg IV TID x3 days Infectious Disease Concern for infection/septic shock; previously thought to have toxic shock syndrome and treated with cefepime and vancomycin. On further reflection, it is possible though unlikely that he did have toxic shock syndrome and that the rash was missed, but regardless at this point he would require only symptomatic care which he is receiving. Minimal benefit in starting clindamycin at this point. Is more likely that the distributive component of his shock was a sequelae of his cardiogenic shock. - Ceftriaxone 2g q24h x7 days (06/26 - ) Hematologic # Microcytic anemia - Likely iron deficiency/acute blood loss anemia complicated by DIC/hemolysis - Daily CBC # Coagulopathy # DIC - improving Pattern of rising PTT, PT, D-dimer and a low fibrinogen is consistent with DIC, possibly complicated by suspected chronic liver disease though difficult to evaluate given lack of previous labs. Will continue to monitor for signs of active bleeding and repeat coags with or without TEG in the event of further bleeding. - Daily PT/PTT - S/p 1 unit FFP 06/25 - S/p 2x Vit K 10mg - hold further doses with improving coags # Thrombocytopenia - improved CTM. Unlikely to be tax compliance representative of HIT with timing of onset (first exposed 06/24); plt count improved today. More likely due to his systemic illness. Neurologic # Decreased mentation # Concern for anoxic brain injury Multiple sedation wean attempts in this admission, pt continues to be altered without following commands and opening eyes rarely while off sedation. Lack of withdrawal from painful stimuli is a poor prognostic indicator. Concern for hypoactive ICU delirium vs an anoxic/hypoglycemic brain injury. Also treating empirically for hepatic encephalopathy though much less likely as he is believed to haveacute liver failure rather than cirrhosis - MRI without evidence of anoxic or hypoglycemic brain injury - lactulose, rifaximin - sedation/anxiety management with haldol, fentanyl PRN over propofol # Facial twitches - resolved One-sided facial twitches observed by nursing staff on admission. EEG negative while off sedation -and now discontinued. # Mood disorder - Cont PICTURE PAINTER Citalopram 20mg daily --> d/c to avoid potential medication interactions consider resumption after conscious # ?Neuropathic pain - Hold PICTURE PAINTER Cyclobenzaprine 10mg daily, Gabapentin 800mg TID with liver/kidney injury Endocrine # Hypoglycemia - resolved Hypoglycemic to 12 prior to transfer. Now resolved. Unclear etiology of this hypoglycemia, could indicate severe hepatic dysfunction however would not expected to resolve so quickly. Continue to monitor with POC glucose q6h. - Goal glucose 100-180 Prophylaxis - DVT ppx - heparin gtt - HOB elevated - maintain SCDs - Cont PICTURE PAINTER pantoprazole Communication Code Status: Full Code. Daily Goals: Wean of ventilator Critical Care Daily Checklist: Completed Love Ricks MD 06/30/23 10:48 Emergency Medicine PGY-2 Attending attestation statement: I saw and examined the patient with the resident/medical student and agree with the findings and plans as documented, and as amended in blue. Clinical Condition: Derrick Hobson is a critically ill 68 y.o. male. Over the past 24 hours, there has been a high probability of sudden, clinically significant or life threatening deterioration in the patient???s condition, which include the following diagnoses which I have managed: 1. JOS (acute kidney injury) (HCC-CMS) 2. Lactic acidosis 3. Shock liver 4. Cardiogenic shock (HCC-CMS) 5. Acute hypoxemic respiratory failure (HCC-CMS) 6. Coagulopathy (HCC-CMS) 7. Encephalopathy 8. DIC (disseminated intravascular coagulation) (HCC-CMS) 9. Type 2 diabetes mellitus with other specified complication, without long-term current use of insulin (HCC-CMS) 10. Acute on chronic systolic heart failure (HCC-CMS) 11. Atrial fibrillation, unspecified type (HCC-CMS) Critical Care time was provided in the form of interventions to treat and prevent further life threatening deterioration of the patient???s condition including: management of mechanical ventilation, and high complexity decision making regarding need for additional imaging studies and / or interventional radiology interventions. My bedside involvement was required to monitor and direct the critical care that has been provided.Exclusive of procedures, my critical care time is 45 minutes. Kael Denny MD Pulmonary & Critical Care Medicine 06/30/2023 * Hilda Kolb, RT - 06/30/2023 0556 EDT Respiratory Progress Note Indications for Respiratory therapy: VENT Data Vitals: Heart Rate: 105 BPM, Resp: 15, SpO2: 94 % FIO2/O2 Device: , , O2 Device: Intubated, FIO2 %: 25 % RT Orders: MECHANICAL VENT 7.5 ett 24 cm @ the lip VC/SIMV 620/14/+5/25%/PS 5 DUO PRN Action/Events Respiratory events; Pt remains intubated/ sedated unable to extubate d/t hemodynamic instability with vent/sedation wean and AMS, unable to follow commands. Pt tolerated PS 8/5 for 1 hour before pt started to desat to the 80s and increased wob. Pt placed on VC/SIMV 620/14/+5/25%/PS 5. Plan of care on going RT FOSTER 06/30/23 * Esmer Jaeger MD - 06/29/2023 1346 EDT NEPHROLOGY CONSULT PROGRESS NOTE Admit Date: 06/25/2023 Hospital Day: LOS: 4 days Date of Service: 06/29/2023 Attending Physician: Charanjit Taylor MD Reason for Consult: Acute renal failure 24-hour events/Subjective: Patient remains intubated. No subjective complaints obtained. Remains off pressors. Off CRRT ROS: Unable to assess Current medications: Current Facility-Administered Medications Medication Route Frequency alteplase (CATHFLO ACTIVASE) injection 2 mg intercatheter PRN [START ON 06/30/2023] amino acids-protein hydrolysate (PRO SOURCE NOCARB) packet 30 mL oral DAILY amino acids-protein hydrolysate (PRO SOURCE NOCARB) packet 90 mL oral TID amiodarone in dextrose 360 mg/200 mL (1.8 mg/mL) infusion intravenous CONTINUOUS Followed by amiodarone in dextrose 360 mg/200 mL (1.8 mg/mL) infusion intravenous CONTINUOUS aspirin chewable tablet 81 mg oral DAILY cefTRIAXone (ROCEPHIN) 2,000 mg in sodium chloride (NS MBP) 50 mL IVPB intravenous DAILY citalopram (CELEXA) tablet 20 mg oral DAILY Dimethicone-Zinc Oxide 20-25 % spray,non-aerosol topical BID fentaNYL citrate (PF) injection 50-75 mcg intravenous Q1H PRN haloperidol lactate (HALDOL) injection 5 mg intravenous Q6H PRN heparin 1,000 unit/mL injection 5,500 Units intravenous PRN Or heparin 1,000 unit/mL injection 2,800 Units intravenous PRN heparin in 1/2 NS 25,000 unit/250 mL infusion intravenous CONTINUOUS ipratropium-albuteroL (DUONEB) 0.5 mg-3 mg(2.5 mg base)/3 mL nebulizer solution 3 mL nebulization Q4H PRN lactulose (CHRONULAC) 20 gram/30 mL solution 30 mL oral Q4H PRN lidocaine (PF) 10 mg/mL (1 %) injection 2 mg intradermal PRN magnesium sulfate 2 g in water 50 mL intravenous PRN multivitamin (NEPHROVITE) 0.8 mg tablet 1 Tablet oral QHS nutren 2.0 per g tube CONTINUOUS pantoprazole (PROTONIX) injection 40 mg intravenous DAILY papain-alpha amylase-cellulase (CLOG ZAPPER) 2-5 mL feeding tube PRN polyethylene glycol 3350 (MIRALAX) packet 17 g oral Daily PRN propOFol (DIPRIVAN) 1000 mg in 100 mL infusion intravenous CONTINUOUS rifAXIMin (XIFAXAN) tablet 550 mg oral BID senna (SENOKOT) tablet 2 Tablet oral BID PRN Or sennosides (SENOKOT) syrup 17.6 mg per ng tube BID PRN thiamine (VITAMIN B-1) 500 mg in sodium chloride (NS) 0.9 % 50 mL IVPB intravenous TID I+O: Intake/Output Summary (Last 24 hours) at 06/29/2023 1346 Last data filed at 06/29/2023 1200 Gross per 24 hour Intake 2481.56 ml Output 623 ml Net 1858.56 ml Weight: Wt Readings from Last 5 Encounters: 06/29/23 80.2 kg (176 lb 12.9 oz) Physical Examination: BP (!) 135/104 Pulse 102 Temp 35.8 ??C (96.4 ??F) (Axillary) Resp 20 Ht 182.9 cm (72) Wt80.2 kg (176 lb 12.9 oz) SpO2 91% BMI 23.98 kg/m?? General Appearance: No Acute Distress HEENT : Negative Heart: Regular Rate/Rhythm Lungs: Clear to Auscultation Abdomen: Soft Extremities: 2+ Edema : Alston Present Neuro: Unable to assess Psych: Unable to assess Skin: normal coloration and turgor, no rashes, no suspicious skin lesions noted. Extracellular volume is assessed as high Dialysis Access: A dialysis access is present. Data Review: Reviewed in [facility]ISM, notable for the following: CBC: Lab Results Component Value Date WBC 12.68 (H) 06/29/2023 RBC 3.64 (L) 06/29/2023 HGB 8.7 (L) 06/29/2023 HCT 26.3 (L) 06/29/2023 MCV 72 (L) 06/29/2023 MCH 23.9 (L) 06/29/2023 MCHC 33.1 06/29/2023 PLT 111 (L) 06/29/2023 NEUTROABS 10.36 (H) 06/29/2023 Nephrology profile: Lab Results Component Value Date NA 138 06/29/2023 K 4.6 06/29/2023 CL 109 06/29/2023 CO2 18 (L) 06/29/2023 BUN 28 (H) 06/29/2023 CREATININE 1.65 (H) 06/29/2023 CALCIUM 7.8 (L) 06/29/2023 PHOS 3.8 06/28/2023 LABALBU 2.1 (L) 06/29/2023 Recent Labs 06/26/23 2143 06/27/23 0403 06/28/23 0536 06/29/23 0441 CREATININE 0.68 0.50* 0.51* 1.65* Baseline creatinine: Unknown ASSESSMENT: 68y M with PMH of treated Hep C, COPD, HFrEF, alcohol and cocaine use disorder admitted for shock with renal and respiratory failure -Shock, cardiogenic vs septic shock. Was on Dobutamine and Levophed. Now off pressors -Renal failure most likely ATN in setting of shock. Has elevated liver enzymes suggestive of shock liver with initial elevated lactic acid. Was started on CRRT for electrolyte and volume balance. -Now off pressors. Switched to IHD while he remains anuric with volume overload RECOMMENDATIONS: -HD for 3hrs today -Will reassess for HD tomorrow -Continue to monitor electrolytes -Strict I/Os -Please call with any questions or concerns Esmer Jaeger MD 06/29/2023 13:46 * Socorro Galvez, RN - 06/29/2023 1337 EDT Dialysis/CRRT Final Verification Completed with Derrick Maldonado Acute breaker table worker * Lupe Ramirez RT - 06/29/2023 1136 EDT Respiratory Progress Note Indications for Respiratory therapy: Vent Data Vitals: Heart Rate: (!) 115 BPM, Resp: 18, SpO2: 92 % FIO2/O2 Device: , , O2 Device: Intubated, FIO2 %: 25 % RT Orders: 7.5 ett 25 cm @ the lip VC/AC 620/14/+5 Action/Events Respiratory events; Pt remains intubated/ sedated unable to extubate d/t hemodynamic instability with vent/sedation wean and AMS. RT RANDY 06/29/23 * SuadDavian horne, RD - 06/29/2023 0923 EDT Nutrition Assessment Note: Reassessment BACKGROUND DATA Derrick Hobson is a 68 y.o. male admitted for Cardiogenic shock ([facility]) w/ respiratory and renal failure requiring CRRT. PMH (per Charanjit Taylor MD 06/25/23): Afib, COPD, hep C Clinical Course Since Last RD Visit: Transitioned from CRRT to iHD 06/27 SBT trial and back on vent this morning Subjective: Pt remains intubated and sedated on propofol. No visitors at bedside except for RN who reports pt tolerating TF well without issue and had 2 bowel movements overnight. Current Nutrition Orders: NPO TF: Peptamen Intense VHP at 50 mL/hr x 24 hrs TF Rx: 60 mL Prosource TID Provides: 1200 mL formula (1000 mL free water), 1560 kcals, 200 g protein *Delegate Diet Ordering to RD Propofol: 14.5 mL/hr = 380 kcals/day Objective Physical Findings: Net IO Since Admission: -542.99 mL [06/29/23 0923] Digestive Systems: Last BM 06/28 Dentition: Teeth: Missing teeth per flowsheets Edema: +2 RUE/LUE, +3 RLE/LLE Skin: dry, edematous Allergies on file: Clonidine Temp: [36.6 ??C (97.9 ??F)-37.3 ??C (99.1 ??F)] MVE: 11.8 MAPs: 103 Anthropometrics: Height: 182.9 cm (72) BMI: Body mass index is 24.01 kg/m??. Weight Change: no significant changes at this time Weights Filed This Admission 06/25/23 1340 06/28/23 0900 Weight: 80.3 kg (177 lb) 80.3 kg (177 lb) Wt Readings from Last 6 Encounters: 06/28/23 80.3 kg (177 lb) Pertinent Medications: Current Facility-Administered Medications Medication Route Frequency alteplase (CATHFLO ACTIVASE) injection 2 mg intercatheter PRN amino acids-protein hydrolysate (PRO SOURCE NOCARB) packet 60 mL oral TID aspirin chewable tablet 81 mg oral DAILY cefTRIAXone (ROCEPHIN) 2,000 mg in sodium chloride (NS MBP) 50 mL IVPB intravenous DAILY citalopram (CELEXA) tablet 20 mg oral DAILY fentaNYL citrate (PF) injection 50 mcg intravenous Q1H PRN heparin 1,000 unit/mL injection 5,500 Units intravenous PRN Or heparin 1,000 unit/mL injection 2,800 Units intravenous PRN heparin in / NS 25,000 unit/250 mL infusion intravenous CONTINUOUS ipratropium-albuteroL (DUONEB) 0.5 mg-3 mg(2.5 mg base)/3 mL nebulizer solution 3 mL nebulization Q4H PRN lactulose (CHRONULAC) 20 gram/30 mL solution 30 mL oral Q4H PRN lidocaine (PF) 10 mg/mL (1 %) injection 2 mg intradermal PRN lidocaine (XYLOCAINE) 2 % viscous solution 5 mL topical Now magnesium sulfate 2 g in water 50 mL intravenous PRN Multivitamins with minerals + ferrous gluconate (CENTRUM) oral solution 15 mL feeding tube DAILY pantoprazole (PROTONIX) injection 40 mg intravenous DAILY papain-alpha amylase-cellulase (CLOG ZAPPER) 2-5 mL feeding tube PRN peptamen intense VHP per g tube CONTINUOUS polyethylene glycol 3350 (MIRALAX) packet 17 g oral Daily PRN propOFol (DIPRIVAN) 1000 mg in 100 mL infusion intravenous CONTINUOUS rifAXIMin (XIFAXAN) tablet 550 mg oral BID senna (SENOKOT) tablet 2 Tablet oral BID PRN Or sennosides (SENOKOT) syrup 17.6 mg per ng tube BID PRN Pertinent Labs: Lab Results Component Value Date WBC 12.68 (H) 06/29/2023 RBC 3.64 (L) 06/29/2023 HGB 8.7 (L) 06/29/2023 HCT 26.3 (L) 06/29/2023 MCV 72 (L) 06/29/2023 MCH 23.9 (L) 06/29/2023 PLT 111 (L) 06/29/2023 NA 138 06/29/2023 K 4.6 06/29/2023 CL 109 06/29/2023 CO2 18 (L) 06/29/2023 BUN 28 (H) 06/29/2023 CREATININE 1.65 (H) 06/29/2023 CALCIUM 7.8 (L) 06/29/2023 MG 2.3 06/29/2023 PHOS 3.8 06/28/2023 Lab Results Component Value Date/Time GLUCOSEPOC 132 (H) 06/29/2023 05:58 GLUCOSEPOC 71 06/29/2023 05:33 GLUCOSEPOC 78 06/29/2023 04:18 GLUCOSEPOC 94 06/28/2023 23:46 GLUCOSEPOC 74 06/28/2023 23:18 Lab Results Component Value Date/Time ALT 927 (H) 06/29/2023 04:41 AST 1,190 (H) 06/29/2023 04:41 ALKPHOS 151 (H) 06/29/2023 04:41 TBIL 5.6 (H) 06/29/2023 04:41 TRIG 72 06/27/2023 04:03 Estimated Nutrition Needs: using 80.3 kg [facility] 2003b = 1900 kcals/day MSJ x1.1-1.2 = 2054-5542 kcals/day 2-2.5 g protein/kg = 161-201 g protein/day Fluids per primary team Estimated Nutrition Intake: receiving TF since admission ASSESSMENT: Pt continues tolerating TF at this time. Propofol was averaging 14.5 mL/hr to provide an additionalof 380 kcals. Provider requested a more concentrated formula d/t fluid overload and is okay with extra protein flushes to meet nutrition needs. Updated TF recs below. K and Phos remain WNL. Phos and Mg occasionally had to be repleted over the past few days. Nutrition Risk Level: High (1) MEDICAL NUTRITION THERAPY - UPDATED PLAN Switch Centrum to Nephrovite multivitamin while pt is on dialysis New TF recs per provider request: Nutren 2.0 at 20 mL/hr continuously + 90 mL Prosource TID + 30 mL Prosource 1x daily Current propofol at 14.5 mL/hr gives +380 kcals/day Provides 480 mL formula (330 mL free water), 1560 kcals (1940 kcals w/ propofol), 190 g protein daily Replete electrolytes as appropriate Monitor weight trends, bowel movements, labs, net I/Os, and skin integrit DAVIAN UREÑA RD, CD, CNSC (Call PAS or use [employer] Web ([email or web address]) to page RD covering this unit) * Kael Denny MD - 06/29/2023 0748 EDT Critical Care Progress Note Service Date: 06/29/2023 Admit Date: 06/25/2023 13:23 Reason for Admission to ICU: 68 y.o. male transferred from [facility] for cardiogenic shock and multiorgan failure. Critical and life-threatening events over the past 24 hours: - PA catheter removed - SBT this AM; stopped due to tachycardia, secretions, not following commands - MRI head obtained Subjective/Objective Subjective Intubated, off propofol x1h. Moving all extremities spontaneously, opening eyes slightly to voice/name, not following commands. Review of Systems Review of systems not obtained due to patient factors: Unconsciousness and Ventilated Objective Vital signs: Blood pressure 119/81, pulse 102, temperature 37.3 ??C (99.1 ??F), resp. rate 18, height 182.9 cm (72), weight 80.3 kg (177 lb), SpO2 99 %. Ventilator Settings: Mode: VC-AC Rate: 14 bmp Vt 620 mL PS:5 cmH2O PEEP 5 cmH2O FiO2: 25 % BIPAP FiO2 FIO2 %: 30 % Flow Physical Exam General: Intubated, sedation wearing off, agitated. Chronically ill appearing male. HEENT: Normocephalic, atraumatic. NGT in place. Blood crusted in nares. Heart: Tachycardic, and irregularly irregular rhythm. No murmurs appreciated. Lungs: Intubated, symmetric chest rise, overriding vent. Clear to auscultation in anterior mckee bilaterally. No wheezes or crackles. Abdomen: Soft, distended, no palpable masses or organomegaly. : Alston in place draining scant yellow urine. Extremities: 2+, unchanged from yesterday. Skin: No rashes on exposed skin. No jaundice. Neuro: Moving all 4 extremities spontaneously. Opens eyes to voice. Not following commands, not seeming to attempt to communicate. Pinching bilateral arms produces head shaking but no withdrawal frompain. Movement of feet from touching, not clearly withdrawing from pain. Ins/Outs: Intake/Output Summary (Last 24 hours) at 06/29/2023 0748 Last data filed at 06/29/2023 0700 Gross per 24 hour Intake 2576.78 ml Output 1885 ml Net 691.78 ml Labs CMP Lab Results Component Value Date NA 138 06/29/2023 K 4.6 06/29/2023 CL 109 06/29/2023 CO2 18 (L) 06/29/2023 SERGLU 74 06/29/2023 BUN 28 (H) 06/29/2023 CREATININE 1.65 (H) 06/29/2023 CALCGFR 45 (L) 06/29/2023 TP 5.2 (L) 06/29/2023 ALKPHOS 151 (H) 06/29/2023 AST 1,190 (H) 06/29/2023 ALT 927 (H) 06/29/2023 TBIL 5.6 (H) 06/29/2023 CALCIUM 7.8 (L) 06/29/2023 AGRATIO 0.7 (L) 06/29/2023 ANIONGAP 11 06/29/2023 Lab Results Component Value Date WBC 12.68 (H) 06/29/2023 HGB 8.7 (L) 06/29/2023 HCT 26.3 (L) 06/29/2023 MCV 72 (L) 06/29/2023 PLT 111 (L) 06/29/2023 Imaging 06/18 MRI head - not yet read. Cardio 06/27 TTE: Left Ventricle: The left ventricular cavity was normal in size. Left ventricular systolicfunction was moderately decreased with an ejection fraction of 40%. Left ventricular wall thicknesswas normal. There was diffuse hypokinesis. The patient was in rapid atrial fibrillation throughout the study. This rhythm could contribute to the overall reduced EF Right Ventricle: The right ventricular cavity was mildly dilated in size. Right ventricular systolic function was low normal Micro 06/24 Bcx x2 - No growth to date Assessment/Plan Assessment Derrick Hobson is a 68 y.o. male with limited medical records available but a PMH significant for AF, COPD, Hep C who presented for epistaxis, then complicated by hypotension, new severe systolicheart failure, AHRF, electrolyte derangements, and oliguria, consistent with cardiogenic shock, shock liver, and acute kidney failure of uncertain etiology at this time. Transferred to [facility] forinitiation of dialysis. Overall he is recovering from a mixed cardiogenic/distributive shock picture. He continues to be altered, now opening his eyes but not following commands. Plan to reassess after a longer period off sedation and use precedex/haldol as needed for agitation. MRI head obtained due to concern for anoxic/hypoglycemic injury, not yet read but without obvious signs of acute injury. Otherwise, liver functi on improving with downtrending LFTs. Hemodynamically stable off pressors and inotropes, indicating resolution of cardiogenic shock. Still with acute heart failure though with improved EF. Hypoxic respiratory failure improved, now intubated for sedation needs rather than respiratory support. Renal function has not yet returned; continuing IHD. Plan Pulmonary # Acute hypoxic respiratory failure - resolving # Possible pneumonia Intubated on fairly minimal vent settings. Unclear from records whether he was intubated for respiratory support needs or for airway protection, but continues to be ventilated due to AMS. Chest CT with consolidations that are somewhat concerning for pneumonia, and findings of pulmonary edema which is consistent with his overall clinical picture. - Intubated - Ceftriaxone 2g q24h x7 days (06/26 - ). - Trial sedation weaning today; SBT if successful. # COPD Does not appear to be in a COPD exacerbation. - Cont PICTURE PAINTER albuterol PRN - Cont PICTURE PAINTER duonebs Cardiac # Hypotension - resolved # Cardiogenic shock - resolved # Severe systolic heart failure (EF 20-25% --> 40%) # Elevated troponin # Elevated lactate - resolved Now hemodynamically off stable pressors and inotropes. EF improved significantly from 20% on admission to 40% on TTE from 06/27. Plan to start introducing GDMT today. - HFrEF with regional wall motion abnormalities - will need ischemic workup prior to discharge. - start isordil/hydralazine at 10mg/10mg respectively today - Cardiology consulted, appreciate recs: - continue to hold GDMT at least another 24 hrs. If stable tomorrow afternoon with SBP >120 thenwe can start isordil/hydralazine at 10mg/10mg respectively - monitor heart rates, goal Hrs <140 - continue heparin gtt - ideally we should get a repeat assessment of his LVEF when he is no longer in rapid afib. Timing to be determined - ischemic evaluation with [facility] prior to discharge, however there is no urgency to this study and the timing will be dictated by his clinical improvement # Chronic Afib Rate climbing above goal <140 today. - Tele - Holding PICTURE PAINTER metoprolol iso recent cardiogenic shock - AC with heparin gtt - Start amiodarone drip - Goal HR <140 # Chronic HTN (presumed from med list) - Hold PICTURE PAINTER metoprolol, spironolactone; likely restart as part of GDMT in the coming days. Renal # Acute kidney failure, suspected ATN # Diffuse edema # Hyperkalemia - resolved on CRRT L IJ dilaysis line in place. On CRRT with normalization of electrolytes. Continues anuric but expect recovery from ATN and return of some renal function in the coming weeks. - Transitioned from CRRT to intermittent HD yesterday. - Nephrology consulted, appreciate recs - Goal net neg 1L/day - Majority of intake is tube feeds - discuss more concentrated feeds with RD - Avoid nephrotoxins - Trend BMP q6h - Strict I/O - lasix challenge today: 200mg IV lasix + 1g diuril GI Nutrition # Shock liver - resolving - Management of cardiogenic shock as above - Avoid hepatotoxins - Daily CMP Last BM: 06/28 - Trickle tube feeds - bowel regimen - thiamine 500mg IV TID x3 days Infectious Disease Concern for infection/septic shock; previously thought to have toxic shock syndrome and treated with cefepime and vancomycin. On further reflection, it is possible though unlikely that he did have toxic shock syndrome and that the rash was missed, but regardless at this point he would require only symptomatic care which he is receiving. Minimal benefit in starting clindamycin at this point. Is more likely that the distributive component of his shock was a sequelae of his cardiogenic shock. - Ceftriaxone 2g q24h x7 days (06/26 - ) Hematologic # Microcytic anemia - Likely iron deficiency/acute blood loss anemia complicated by DIC/hemolysis - Daily CBC # Coagulopathy # DIC - improving Pattern of rising PTT, PT, D-dimer and a low fibrinogen is consistent with DIC, possibly complicated by suspected chronic liver disease though difficult to evaluate given lack of previous labs. Will continue to monitor for signs of active bleeding and repeat coags with or without TEG in the event of further bleeding. - Daily PT/PTT - S/p 1 unit FFP 06/25 - S/p 2x Vit K 10mg - hold further doses with improving coags # Thrombocytopenia - improved CTM. Unlikely to be tax compliance representative of HIT with timing of onset (first exposed 06/24); plt count improved today. More likely due to his systemic illness. Neurologic # Decreased mentation # Concern for anoxic brain injury Multiple sedation wean attempts in this admission, pt continues to be altered without following commands and opening eyes rarely while off sedation. Lack of withdrawal from painful stimuli is a poor prognostic indicator. Concern for hypoactive ICU delirium vs an anoxic/hypoglycemic brain injury. Also treating empirically for hepatic encephalopathy though much less likely as he is believed to haveacute liver failure rather than cirrhosis - F/u read MRI head - lactulose, rifaximin - sedation/anxiety management with haldol, fentanyl PRN over propofol # Facial twitches - resolved One-sided facial twitches observed by nursing staff on admission. EEG negative while off sedation -and now discontinued. # Mood disorder - Cont PICTURE PAINTER Citalopram 20mg daily # ?Neuropathic pain - Hold PICTURE PAINTER Cyclobenzaprine 10mg daily, Gabapentin 800mg TID with liver/kidney injury Endocrine # Hypoglycemia - resolved Hypoglycemic to 12 prior to transfer. Now resolved. Unclear etiology of this hypoglycemia, could indicate severe hepatic dysfunction however would not expected to resolve so quickly. Continue to monitor with POC glucose q6h. - Goal glucose 100-180 Prophylaxis - DVT ppx - held with elevated INR - HOB elevated - maintain SCDs - Cont PICTURE PAINTER pantoprazole Communication Code Status: Full Code. Critical Care Daily Checklist: Completed Khushi Young MD Family Medicine PGY1 Epic Chat or Pager #[phone] 06/29/23 7:48 Attending attestation statement: I saw and examined the patient with the resident/medical student and agree with the findings and plans as documented, and as amended in blue. Clinical Condition: Derrick Hobson is a critically ill 68 y.o. male. Over the past 24 hours, there has been a high probability of sudden, clinically significant or life threatening deterioration in the patient???s condition, which include the following diagnoses which I have managed: 1. JOS (acute kidney injury) (HCC-CMS) 2. Lactic acidosis 3. Shock liver 4. Cardiogenic shock (HCC-CMS) 5. Acute hypoxemic respiratory failure (HCC-CMS) 6. Coagulopathy (HCC-CMS) 7. Encephalopathy 8. DIC (disseminated intravascular coagulation) (HCC-CMS) 9. Type 2 diabetes mellitus with other specified complication, without long-term current use of insulin (HCC-CMS) 10. Acute on chronic systolic heart failure (HCC-CMS) 11. Atrial fibrillation, unspecified type (HCC-CMS) 12. Metabolic acidosis 13. Hypervolemia, unspecified hypervolemia type 14. Encounter for hemodialysis (HCC-CMS) 15. Hypokalemia 16. Hyperphosphatemia Critical Care time was provided in the form of interventions to treat and prevent further life threatening deterioration of the patient???s condition including: management of mechanical ventilation, and high complexity decision making regarding candidacy for extubation. My bedside involvement was required to monitor and direct the critical care that has been provided.Exclusive of procedures, my critical care time is 43 minutes. Kael Denny MD Pulmonary & Critical Care Medicine 07/05/2023 * Prudencio Townsend, RT - 06/29/2023 0554 EDT 3Respiratory Progress Note Indications for Respiratory therapy: Respiratory Failure/ Vent Data Vitals: Heart Rate: (!) 149 BPM, Resp: 18, SpO2: 99 % FIO2/O2 Device: 7.5 ett 25 cm @ the lip VCAC: VT 620 rr 18 peep 5+ Fio2 25% Action/Events Patient tolerating full vent support this overnight, 5+ 25% fio2. Small to moderate amount of trejo secretions suctioned via ETT with strong spontaneous cough. Patient tolerated SBT from 0500 to 0553, ended for inability to follow commands with HR sustained to 160s / 170s. Patient placed back on fullACVC settings post SBT. RT SOURAV 06/29/23 * Chinedu Dela Cruz RN - 06/29/2023 0545 EDT Assumed care @ 1900. Patient in bed, intubated and sedated on propofol, with continuous EEG as per order. Patient off sedation, SBT trial and patient failed due to tachycardia and unable to follow commands and tachypnea. Patient given fentanyl as per order and to see if it would assist with HR but did not assist much throughout the shift. Informed attending Grace and no new orders were received. Blood sugar low twice and gave d50 twice as per orders and rechecks WNL. Restraints in place and caprefill and ROM checked and performed [id number] as per policy. Assessment and vitals as charted pleasesee flow sheet. Will continue to monitor and follow POC. * Troy Mina - 06/28/2023 1320 EDT Cardiology Consult Follow-Up Note Reason for Consult Shock 24-Hr Events & Subjective -SGC showed improving hemodynamics throughout the day, patient successfully weaned off of dobutamine and levophed -Continued volume removal with CRRT, no signs of renal recovery. Cardiac filling pressures improvedthroughout the day -Patient failed SBT secondary to mental status. He remains on minimal ventilator settings -SGC removed -TTE showed significant LVEF improvement Review of Systems Complete ROS reviewed and negative except as listed above in subjective data Physical Exam BP (!) 81/66 Pulse 102 Temp 37 ??C (98.6 ??F) Resp 17 Ht 182.9 cm (72) Wt 80.3 kg (177 lb) SpO2 99% BMI 24.01 kg/m?? Gen: sedated, some nonpurposeful movements noted HEENT: NC/AT, MMM Neck: Supple, left IJ central line for hemodialysis Heart: RRR, normal S1/S2, no MRG Lungs: Normal WOB, CTAB, no WRR Abdomen: Soft, NT/ND Neuro: Sedated, no purposeful movements Ext: Warm, 1+ peripheral edema in the lower extremities bilaterally Skin: No jaundice or rashes Labs & Imaging Reviewed. Assessment and Recommendations Derrick Hobson is a 68 y.o. male with history of reported midrange ejection fraction, COPD, alcohol and cocaine use disorders, treated HCV who presented as a transfer to the [facility] for multisystem organ failure and multifactorial shock. Patient continues to improve with stable hemodynamics off of pressor support. Remains intubated secondary to altered mentation. Overall his clinical trajectory is suggestive of a mixed shock presentation in the setting of a likely underlying cardiomyopathy complicated by an acute infection and iatrogenic medication administration, particularly the verapamil. His LVEF has significantly improved over the past 3 days. -continue to hold GDMT at least another 24 hrs. If stable tomorrow afternoon with SBP >120 then we can start isordil/hydralazine at 10mg/10mg respectively -monitor heart rates, goal Hrs <140 -continue heparin gtt -ideally we should get a repeat assessment of his LVEF when he is no longer in rapid afib. Timing to be determined -ischemic evaluation prior to discharge, however there is no urgency to this study and the timing will be dictated by his clinical improvement Plan of care discussed w/ Dr. Jeremías MINA Motion Study Technician, PGY5 Associated attestation - Damon Veronica MD - 06/28/2023 1432 EDT I have seen and evaluated the patient. I agree with the assessment and plan as outlined by Dr. Mina. Damon Veronica MD [facility] * Esmer Jaeger MD - 06/28/2023 1002 EDT NEPHROLOGY CONSULT PROGRESS NOTE Admit Date: 06/25/2023 Hospital Day: LOS: 3 days Date of Service: 06/28/2023 Attending Physician: Charanjit Taylor MD Reason for Consult: Acute renal failure 24-hour events/Subjective: Patient off pressors. Stable BPs. Remains intubated and sedated. Remainson CRRT. Drop in platelet count this AM ROS: Unable to obtain from patient Current medications: Current Facility-Administered Medications Medication Route Frequency alteplase (CATHFLO ACTIVASE) injection 2 mg intercatheter PRN amino acids-protein hydrolysate (PRO SOURCE NOCARB) packet 60 mL oral TID aspirin chewable tablet 81 mg oral DAILY cefTRIAXone (ROCEPHIN) 2,000 mg in sodium chloride (NS MBP) 50 mL IVPB intravenous DAILY citalopram (CELEXA) tablet 20 mg oral DAILY fentaNYL citrate (PF) injection 25-50 mcg intravenous Q1H PRN heparin 1,000 unit/mL injection 2,400 Units intravenous PRN Or heparin 1,000 unit/mL injection 1,200 Units intravenous PRN heparin in /2 NS 25,000 unit/250 mL infusion intravenous CONTINUOUS ipratropium-albuteroL (DUONEB) 0.5 mg-3 mg(2.5 mg base)/3 mL nebulizer solution 3 mL nebulization Q4H PRN lactulose (CHRONULAC) 20 gram/30 mL solution 30 mL oral Q4H PRN lidocaine (PF) 10 mg/mL (1 %) injection 2 mg intradermal PRN magnesium sulfate 2 g in water 50 mL intravenous PRN Multivitamins with minerals + ferrous gluconate (CENTRUM) oral solution 15 mL feeding tube DAILY pantoprazole (PROTONIX) injection 40 mg intravenous DAILY papain-alpha amylase-cellulase (CLOG ZAPPER) 2-5 mL feeding tube PRN peptamen intense VHP per g tube CONTINUOUS polyethylene glycol 3350 (MIRALAX) packet 17 g oral DAILY propOFol (DIPRIVAN) 1000 mg in 100 mL infusion intravenous CONTINUOUS rifAXIMin (XIFAXAN) tablet 550 mg oral BID senna (SENOKOT) tablet 2 Tablet oral BID PRN Or sennosides (SENOKOT) syrup 17.6 mg per ng tube BID PRN I+O: Intake/Output Summary (Last 24 hours) at 06/28/2023 1003 Last data filed at 06/28/2023 1000 Gross per 24 hour Intake 3071.12 ml Output 2947 ml Net 124.12 ml Weight: Wt Readings from Last 5 Encounters: 06/28/23 80.3 kg (177 lb) Physical Examination: BP (!) 81/66 Pulse 102 Temp 37.1 ??C (98.7 ??F) Resp 17 Ht 182.9 cm (72) Wt 80.3 kg (177lb) SpO2 94% BMI 24.01 kg/m?? General Appearance: No Acute Distress HEENT : Negative Heart: Regular Rate/Rhythm Lungs: Clear to Auscultation Abdomen: Soft Extremities: 2+ Edema : Alston Present Neuro: Sedated Psych: Sedated Skin: normal coloration and turgor, no rashes, no suspicious skin lesions noted. Extracellular volume is assessed as high Dialysis Access: A dialysis access is present. Data Review: Reviewed in [facility], notable for the following: CBC: Lab Results Component Value Date WBC 13.39 (H) 06/28/2023 RBC 3.54 (L) 06/28/2023 HGB 8.6 (L) 06/28/2023 HCT 26.1 (L) 06/28/2023 MCV 74 (L) 06/28/2023 MCH 24.3 (L) 06/28/2023 MCHC 33.0 06/28/2023 PLT 93 (L) 06/28/2023 NEUTROABS 11.12 (H) 06/28/2023 Nephrology profile: Lab Results Component Value Date NA 140 06/28/2023 K 3.9 06/28/2023 CL 111 (H) 06/28/2023 CO2 18 (L) 06/28/2023 BUN 7 (L) 06/28/2023 CREATININE 0.51 (L) 06/28/2023 CALCIUM 7.6 (L) 06/28/2023 PHOS 2.7 06/28/2023 LABALBU 2.4 (L) 06/28/2023 Recent Labs 06/25/23 2116 06/26/23 0109 06/26/23 2143 06/27/23 0403 06/28/23 0536 CREATININE 2.50* 1.58* 0.68 0.50* 0.51* Baseline creatinine: Unknown ASSESSMENT: 68y M with PMH of treated Hep C, COPD, HFrEF, alcohol and cocaine use disorder admitted for shock with renal and respiratory failure -Shock, cardiogenic vs septic shock. Was on Dobutamine and Levophed. Now off pressors -Renal failure most likely ATN in setting of shock. Has elevated liver enzymes suggestive of shock liver with initial elevated lactic acid. Started on CRRT for electrolyte and volume balance. -Now off pressors. Can be switched to IHD. Can continue CRRT for now for as long as possible. Can arrange for IHD tomorrow. -Drop in platelet count. Being investigated by the primary team. Would consider stopping Heparin with CRRT RECOMMENDATIONS: -Continue CRRT for now, can be run till late afternoon. That is the limit for the system to be re-done, so can be stopped then -Will plan for IHD tomorrow as he remains anuric with volume overload -Ok to aim for 100cc net negative an hour as tolerated -Dose antibiotics for CRRT -Strict I/Os -Please call with any questions or concerns Esmer Jaeger MD 06/28/2023 10:03 * Charanjit Taylor MD - 06/28/2023 0722 EDT Critical Care Progress Note Service Date: 06/28/2023 Admit Date: 06/25/2023 13:23 Reason for Admission to ICU: 68 y.o. male transferred from [facility] for cardiogenic shock and multiorgan failure. Critical and life-threatening events over the past 24 hours: - Weaned off levophed and dobutamine - Failed sedation wean - agitated, not following commands Subjective/Objective Subjective Intubated, still with residual sedation, not yet interactive. Review of Systems Review of systems not obtained due to patient factors: Unconsciousness and Ventilated Objective Vital signs: Blood pressure (!) 81/66, pulse 102, temperature 37.1 ??C (98.8 ??F), temperature source Esophageal, resp. rate 18, height 182.9 cm (72), weight 80.3 kg (177 lb), SpO2 95 %. Ventilator Settings: Mode: VC-AC Rate: 14 bmp Vt 620 mL PS:5 cmH2O PEEP 5 cmH2O FiO2: 30 % BIPAP FiO2 FIO2 %: 30 % Flow Physical Exam General: Intubated, sedated. Chronically ill appearing male. HEENT: Normocephalic, atraumatic. Heart: Regular rate and irregularly irregular rhythm. No murmurs appreciated. Lungs: Intubated, symmetric chest rise, overriding vent. Clear to auscultation in anterior [place] bilaterally. No wheezes or crackles. Abdomen: Soft, distended, no palpable masses or organomegaly. : Alston in place draining scant yellow urine. Extremities: 2+, improved from yesterday, distal pulses not palpable. L foot warm, R foot cooler. Skin: No rashes on exposed skin. No jaundice. Neuro: Localized withdrawal from pain in both legs, but not in either arm. Responds to sternal rub with face scrunching and arm flexion. Does not open eyes to sternal rub or voice. Not following commands. Ins/Outs: Intake/Output Summary (Last 24 hours) at 06/28/2023 0722 Last data filed at 06/28/2023 0700 Gross per 24 hour Intake 2961.62 ml Output 3144 ml Net -182.38 ml Labs ABG Latest Reference Range & Units 06/27/23 04:31 pH, Arterial, i-STAT 7.35 - 7.45 7.41 PCO2, Arterial, i-STAT 35 - 45 mmHg 24 (L) pO2, Arterial, i-STAT 80 - 105 mmHg 58 (L) TCO2, Arterial, i-STAT 22 - 26 mmol/L 16 (L) O2 Saturation, Arterial, i-STAT 95 - 98 % 91 (L) Base Excess(+) / Deficit(-), Arterial, i-STAT -2 - 3 mmol/L -8 (L) (L): Data is abnormally low BMP Lab Results Component Value Date NA 139 06/27/2023 K 4.2 06/27/2023 CL 112 (H) 06/27/2023 CO2 18 (L) 06/27/2023 ANIONGAP 9 06/27/2023 SERGLU 118 (H) 06/27/2023 CALCIUM 7.5 (L) 06/27/2023 BUN 4 (L) 06/27/2023 CREATININE 0.50 (L) 06/27/2023 CALCGFR 111 06/27/2023 CMP Lab Results Component Value Date NA 139 06/27/2023 K 4.2 06/27/2023 CL 112 (H) 06/27/2023 CO2 18 (L) 06/27/2023 SERGLU 118 (H) 06/27/2023 BUN 4 (L) 06/27/2023 CREATININE 0.50 (L) 06/27/2023 CALCGFR 111 06/27/2023 TP 5.5 (L) 06/27/2023 ALKPHOS 182 (H) 06/27/2023 AST 6,405 (H) 06/27/2023 ALT 2,114 (H) 06/27/2023 TBIL 3.4 (H) 06/27/2023 CALCIUM 7.5 (L) 06/27/2023 AGRATIO 0.8 (L) 06/27/2023 ANIONGAP 9 06/27/2023 Lab Results Component Value Date WBC 13.39 (H) 06/28/2023 HGB 8.6 (L) 06/28/2023 HCT 26.1 (L) 06/28/2023 MCV 74 (L) 06/28/2023 PLT 93 (L) 06/28/2023 Lab Results Component Value Date INR 2.8 (H) 06/28/2023 INR 3.3 (H) 06/27/2023 INR 4.1 (HH) 06/26/2023 PROTIME 31.1 (H) 06/28/2023 PROTIME 36.6 (H) 06/27/2023 PROTIME 44.6 (H) 06/26/2023 Lab Results Component Value Date DDIMER 4,290 (H) 06/26/2023 Imaging No new imaging. Cardio No new cardiac studies. Micro 06/24 Bcx x2 - No growth to date Assessment/Plan Assessment Derrick Hobson is a 68 y.o. male with limited medical records available but a PMH significant for AF, COPD, Hep C who presented for epistaxis, now complicated by hypotension, new severe systolic heart failure, AHRF, electrolyte derangements, and oliguria, consistent with cardiogenic shock, possibly stress cardiomyopathy, shock liver, and acute kidney failure of uncertain etiology at this time. Transferred to [facility] for initiation of dialysis. Overall he is recovering from a mixed cardiogenic/distributive shock picture. Liver function improving with downtrending LFTs. Hemodynamically stable off pressors and inotropes, indicating resolutionof cardiogenic shock. Still with acute heart failure though with improved EF. Hypoxic respiratory failure improved, now intubated for sedation needs rather than respiratory support. Renal function has not yet returned. Today, we will aim to continue to try to wean sedation, with MRI head planned ifmentation does not improve. Will also try to switch from CRRT to intermittent HD today, and aim formore aggressive diuresis. 68-year-old, presented with shock, primarily cardiogenic shock[facility]. His hemodynamics have improved to the point he has been weaned off of inotropic therapy, EF is recovered, and PA catheter removed. For now trying to limit sedation, wake him up, and see if we can successfully extubate him. Filling pressures have near normalized, will try to keep himeven to a little bit negative. If his mental status is not clear, we may need an MRI to look for any sign of anoxic injury or other complication. Plan Pulmonary # Acute hypoxic respiratory failure - resolving # Possible pneumonia Intubated on fairly minimal vent settings. Unclear from records whether he was intubated for respiratory support needs or for airway protection, but continues to be ventilated due to AMS. Chest CT with consolidations that are somewhat concerning for pneumonia, and findings of pulmonary edema which is consistent with his overall clinical picture. - Intubated - Ceftriaxone 2g q24h x7 days - Trial sedation weaning today; SBT if successful. - Diuresis with CRRT as below - Not trending procal - inaccurate with kidney failure # COPD Does not appear to be in a COPD exacerbation. - Cont PICTURE PAINTER albuterol PRN - Cont PICTURE PAINTER duonebs Cardiac # Hypotension - resolved # Cardiogenic shock - resolved # Severe systolic heart failure (EF 20-25% --> 40%) # Elevated troponin # Elevated lactate - resolved PA catheter in place with wedge pressures in low 20s, consistent with ongoing cardiogenic shock. CVP elevated indicating vasopressors can hopefully be weaned further and he would benefit from furtherdiuresis. Now off stable pressors and inotropes. - HFrEF with regional wall motion abnormalities - will need ischemic workup when more stable - TTE today - Remove [place] catheter today - Cardiology consulted, appreciate recs: - continue to hold GDMT at least another 24 hrs. If stable tomorrow afternoon with SBP >120 thenwe can start isordil/hydralazine at 10mg/10mg respectively - monitor heart rates, goal Hrs <140 - continue heparin gtt - ideally we should get a repeat assessment of his LVEF when he is no longer in rapid afib. Timing to be determined - ischemic evaluation with [facility] prior to discharge, however there is no urgency to this study and the timing will be dictated by his clinical improvement # Chronic Afib - Tele - Hold PICTURE PAINTER metoprolol while in cardiogenic shock. Rate has been slowly climbing - consider startingrate or rhythm control based on overall clinical picture. - AC with heparin per CRRT protocol # Chronic HTN (presumed from med list) - Hold PICTURE PAINTER metoprolol, spironolactone; likely restart as part of GDMT in the coming days. Renal # Acute kidney failure, suspected ATN # Diffuse edema # Hyperkalemia - resolved on CRRT L IJ dilaysis line in place. On CRRT with normalization of electrolytes. Expect that he is still inATN as he is still oliguric. - Transition from CRRT to intermittent HD today. - Nephrology consulted, appreciate recs - Goal net neg 1-1.5L/day - Avoid nephrotoxins - Trend BMP q6h - Strict I/O GI Nutrition # Shock liver - resolving - Management of cardiogenic shock as above - Avoid hepatotoxins - Daily CMP Last BM: Unknown/PICTURE PAINTER - Trickle tube feeds - bowel regimen Infectious Disease Concern for infection/septic shock; previously thought to have toxic shock syndrome and treated with cefepime and vancomycin. On further reflection, it is possible though unlikely that he did have toxic shock syndrome and that the rash was missed, but regardless at this point he would require only symptomatic care which he is receiving. Minimal benefit in starting clindamycin at this point. Is more likely that the distributive component of his shock was a sequelae of his cardiogenic shock. - Ceftriaxone 2g q24h x7 days Hematologic # Microcytic anemia - Likely iron deficiency/acute blood loss anemia complicated by DIC/hemolysis - Daily CBC # Coagulopathy # DIC - improving Pattern of rising PTT, PT, D-dimer and a low fibrinogen is consistent with DIC, possibly complicated by suspected chronic liver disease though difficult to evaluate given lack of previous labs. Will continue to monitor for signs of active bleeding and repeat coags with or without TEG in the event of further bleeding. - Daily PT/PTT - S/p 1 unit FFP 06/25 - S/p 2x Vit K 10mg - hold further doses with improved coags today # Thrombocytopenia CTM. Unlikely to be tax compliance representative of HIT with timing of onset. Neurologic # Decreased mentation # Concern for anoxic brain injury Multiple sedation wean attempts in this admission, pt continues to be agitated without following commands and opening eyes rarely while off sedation. Concern for ICU delirium vs an anoxic/hypoglycemic brain injury. Also treating empirically for hepatic encephalopathy though much less likely as he is believed to have acute liver failure rather than cirrhosis - MRI head ordered; if mentation improves in the meantime, plan to cancel - lactulose, rifaximin # Facial twitches One-sided facial twitches observed by nursing staff. EEG negative while off sedation - d/c today. # Mood disorder - Cont PICTURE PAINTER Citalopram 20mg daily # ?Neuropathic pain - Hold PICTURE PAINTER Cyclobenzaprine 10mg daily, Gabapentin 800mg TID with liver/kidney injury Endocrine # Hypoglycemia - resolved Hypoglycemic to 12 prior to transfer. Now resolved. Unclear etiology of this hypoglycemia, could indicate severe hepatic dysfunction however would not expected to resolve so quickly. Continue to monitor with POC glucose q6h. - Goal glucose 100-180 Prophylaxis - DVT ppx - held with elevated INR - HOB elevated - maintain SCDs - Cont PICTURE PAINTER pantoprazole Communication Code Status: Full Code. Critical Care Daily Checklist: Completed Khushi Young MD Family Medicine PGY1 Epic Chat or Pager #[phone] 06/28/23 7:22 Attending attestation statement: I saw and examined the patient with the resident and agree with the findings and plans as documented, and as amended in blue. Clinical Condition: Derrick Hobson is a critically ill 68 y.o. male. Over the past 24 hours, there has been a high probability of sudden, clinically significant or life threatening deterioration in the patient???s condition, which include the following diagnoses which I have managed: Principal Problem: Cardiogenic shock (HCC-CMS) Active Problems: Acute hypoxemic respiratory failure (HCC-CMS) JOS (acute kidney injury) (HCC-CMS) Lactic acidosis Encephalopathy Shock liver Coagulopathy (HCC-CMS) Type 2 diabetes mellitus Acute on chronic systolic heart failure (HCC-CMS) Atrial fibrillation (HCC-CMS) Critical Care time was provided in the form of interventions to treat and prevent further life threatening deterioration of the patient???s condition including: Management of mechanical ventilation, Management of pain and sedation, Fluid and electrolyte management, Continuous renal replacement thera py, and Management of inotropic agents, and high complexity decision making regarding need for additional imaging studies and / or interventional radiology interventions and the need for critical procedures, such as: PA catheter . My bedside involvement was required to monitor and direct the critical care that has been provided.Exclusive of procedures, my critical care time is 45 minutes. Charanjit Taylor MD MICU Attending 06/28/2023 * Prudencio Townsend, RT - 06/28/2023 0609 EDT 3Respiratory Progress Note Indications for Respiratory therapy: Respiratory Failure/ Vent Data Vitals: Heart Rate: (!) 145 BPM, Resp: 18, SpO2: 95 % FIO2/O2 Device: 7.5 ett 25 cm @ the lip VCAC: VT 620 rr 18 peep 8+ Fio2 30% Action/Events Patient tolerating full vent support this overnight, weaned to 8+ and 30% fio2, small amount of light trejo secretions suctioned via ETT. Patient lasted on SBT for 1 hour; ended for tachycardia and inability to fully follow commands this morning. Patient placed back on ACVC, will continue to monitor and wean with goal to extubate. RT SOURAV 06/28/23 * Haley Quiroga RN - 06/28/2023 0502 EDT Data: Intubated. Neuro exam suboptimal. Moves x4 extremities, PERRL, head frequently flailing. EEG.CRRT L trialysis. [place]. L groin maria luisa. PIV x1. Action: Propofol/fentanyl for large turns/cares as pt has strong cough, becomes dysynchrononous-sedation otherwise off CRRT running with goal -100cc/hr SBT in am-see RT note Copious stooling-flexiseal placed Response: Unable to follow commands off sedation. Continues to thrash non purposefully. HALEY QUIROGA RN 06/28/2023 5:02 * Almaz Benitez RN - 06/27/2023 1638 EDT Case Management Contact Note: Contact made with brother, Storm Meza [phone]. He has not hadcontact with Derrick in many years and does not feel comfortable making decisions but is happy to help his sister Tarah get in touch with the team. Storm plans to call Tarah and ask her to contact the hospital as she does not answer/return calls from unknown numbers. He shared that Tarah is 81 and mostly homebound. With his permission I added his number to the facesheet in the event that we do not hear back from Tarah. Almaz Benitez RN, BSN CM * Xiomara Fermin RN - 06/27/2023 1619 EDT Dialysis/CRRT Final Verification Completed with Jose C Ferrari breaker table worker * Esmer Jaeger MD - 06/27/2023 1424 EDT NEPHROLOGY CONSULT PROGRESS NOTE Admit Date: 06/25/2023 Hospital Day: LOS: 2 days Date of Service: 06/27/2023 Attending Physician: Charanjit Taylor MD Reason for Consult: Acute renal failure 24-hour events/Subjective: Patient remains on pressors, remains intubated. Sedation earlier this morning with not much response. Continued on CRRT. ROS: Unable to obtain Current medications: Current Facility-Administered Medications Medication Route Frequency alteplase (CATHFLO ACTIVASE) injection 2 mg intercatheter PRN amino acids-protein hydrolysate (PRO SOURCE NOCARB) packet 60 mL oral TID aspirin chewable tablet 81 mg oral DAILY cefTRIAXone (ROCEPHIN) 2,000 mg in sodium chloride (NS MBP) 50 mL IVPB intravenous DAILY citalopram (CELEXA) tablet 20 mg oral DAILY DOBUTamine (DOBUTREX) 500 mg in D5W 250 mL infusion intravenous CONTINUOUS fentaNYL citrate (PF) injection 25-50 mcg intravenous Q1H PRN heparin 1,000 unit/mL injection 2,400 Units intravenous PRN Or heparin 1,000 unit/mL injection 1,200 Units intravenous PRN heparin in 1/2 NS 25,000 unit/250 mL infusion intravenous CONTINUOUS ipratropium-albuteroL (DUONEB) 0.5 mg-3 mg(2.5 mg base)/3 mL nebulizer solution 3 mL nebulization Q4H PRN lidocaine (PF) 10 mg/mL (1 %) injection 2 mg intradermal PRN magnesium sulfate 2 g in water 50 mL intravenous PRN Multivitamins with minerals + ferrous gluconate (CENTRUM) oral solution 15 mL feeding tube DAILY norepinephrine (LEVOPHED) 8 mg in NS 250 mL infusion intravenous CONTINUOUS pantoprazole (PROTONIX) injection 40 mg intravenous DAILY papain-alpha amylase-cellulase (CLOG ZAPPER) 2-5 mL feeding tube PRN peptamen intense VHP per g tube CONTINUOUS polyethylene glycol 3350 (MIRALAX) packet 17 g oral DAILY potassium, sodium phosphates (PHOS-NAK) 280-160-250 mg packet 8 mmol oral Q6H propOFol (DIPRIVAN) 1000 mg in 100 mL infusion intravenous CONTINUOUS senna (SENOKOT) tablet 2 Tablet oral BID PRN Or sennosides (SENOKOT) syrup 17.6 mg per ng tube BID PRN I+O: Intake/Output Summary (Last 24 hours) at 06/27/2023 1424 Last data filed at 06/27/2023 1402 Gross per 24 hour Intake 2883.71 ml Output 3420 ml Net -536.29 ml Weight: Wt Readings from Last 5 Encounters: 06/25/23 80.3 kg (177 lb) Physical Examination: BP (!) 76/59 Pulse 102 Temp 36.9 ??C (98.5 ??F) Resp 19 Ht 182.9 cm (72) Wt 80.3 kg (177lb) Comment: Simultaneous filing. User may not have seen previous data. SpO2 100% BMI 24.01 kg/m?? General Appearance: No Acute Distress HEENT : Negative Heart: Regular Rate/Rhythm Lungs: Clear to Auscultation Abdomen: Soft Extremities: 2+ Edema : Deferred Neuro: No Tremors Psych: Unable to assess Skin: normal coloration and turgor, no rashes, no suspicious skin lesions noted. Extracellular volume is assessed as high Dialysis Access: A dialysis access is present. Data Review: Reviewed in [facility]ISM, notable for the following: CBC: Lab Results Component Value Date WBC 15.95 (H) 06/27/2023 RBC 3.31 (L) 06/27/2023 HGB 7.9 (L) 06/27/2023 HCT 24.3 (L) 06/27/2023 MCV 73 (L) 06/27/2023 MCH 23.9 (L) 06/27/2023 MCHC 32.5 (L) 06/27/2023 PLT 131 (L) 06/27/2023 NEUTROABS 14.07 (H) 06/27/2023 Nephrology profile: Lab Results Component Value Date NA 139 06/27/2023 K 3.8 06/27/2023 CL 112 (H) 06/27/2023 CO2 19 (L) 06/27/2023 BUN 4 (L) 06/27/2023 CREATININE 0.50 (L) 06/27/2023 CALCIUM 7.5 (L) 06/27/2023 PHOS 1.8 (L) 06/27/2023 LABALBU 2.4 (L) 06/27/2023 Recent Labs 06/25/23 1710 06/25/23 2116 06/26/23 0109 06/26/23 2143 06/27/23 0403 CREATININE 3.07* 2.50* 1.58* 0.68 0.50* Baseline creatinine: Unknown ASSESSMENT: 68y M with PMH of treated Hep C, COPD, HFrEF, alcohol and cocaine use disorder admitted for shock with renal and respiratory failure -Shock, cardiogenic vs septic shock. On Dobutamine and Levophed. -Renal failure most likely ATN in setting of shock. Has elevated liver enzymes suggestive of shock liver with initial elevated lactic acid. Started on CRRT for electrolyte and volume balance. -Hypophosphatemic this morning. Phos is added to CRRT bath and he should not get hypophosphatemic. Unclear why it happened. Continue to monitor electrolytes RECOMMENDATIONS: -Continue CRRT -Ok to aim for 100cc net negative an hour as tolerated -Dose antibiotics for CRRT -Strict I/Os -Please call with any questions or concerns Esmer Jaeger MD 06/27/2023 14:24 * Tavo Toscano, - 06/27/2023 1401 EDT Respiratory Progress Note Indications for Respiratory therapy: Mechanical ventilation Data Vitals: Heart Rate: 105 BPM, Resp: 19, SpO2: 100 % FIO2/O2 Device: O2 Device: Intubated, FIO2 %: 40 % RT Orders: Mechanical Ventilation-Invasive [[id number]] RT Continuous Discontinue References: ARDS/ALI Protocol Post Op Protocol Weaning Protocol ETCO2 Protocol Question Answer Comment Mode: Assist Control Control Type: Volume Control VT (mL) 620 Set Rate (f/min) 14 Peep (cm H2O) 10 Autoflow: Yes FiO2 to maintain sats > 90% Protocols: Weaning ETCO2 Protocol: Yes PRN Duoneb Action/Events Respiratory events; Patient remains intubated on the above listed settings. Respiratory rate was reduced from 18 to 14 this morning. PEEP remains at 10 cmH2O for recruitment. No changes made on FiO2 (remains at 40%) dueto most recent ABG results (PAO2 of 58 on 30%, +10). Patient continues to cough frequently and we are suctioning large amounts of clear/white/trejo, mostly thick secretions from the ETT. Response/Results Weaning and Toleration of treatments; Patient is synchronous with the vent. WCTM. RT ZEKE 06/27/23 * Troy Mina - 06/27/2023 1323 EDT Cardiology Consult Follow-Up Note Reason for Consult Shock 24-Hr Events & Subjective -[place]-Phani catheter placed at bedside yesterday, initial numbers show modestly elevated filling pressures, appropriate cardiac index on inotrope he and low systemic vascular resistance. -The patient was tried off of dobutamine however his cardiac index significantly decreased and he was started back -Continues on CRRT, no signs of renal recovery, currently 100 cc/h volume removal -Levophed has been weaned down this morning -ICU team considering extubation today Review of Systems Complete ROS reviewed and negative except as listed above in subjective data Physical Exam BP (!) 76/59 Pulse 102 Temp 36.9 ??C (98.4 ??F) Resp 19 Ht 182.9 cm (72) Wt 80.3 kg (177lb) Comment: Simultaneous filing. User may not have seen previous data. SpO2 100% BMI 24.01 kg/m?? Gen: sedated, some nonpurposeful movements noted HEENT: NC/AT, MMM, PERRLA, EOMI, anicteric Neck: Supple, [place]-Phani catheter through right IJ, left IJ central line for hemodialysis Heart: RRR, normal S1/S2, no MRG Lungs: Normal WOB, CTAB, no WRR Abdomen: Soft, NT/ND Neuro: Sedated, no purposeful movements Ext: Warm, 2+ peripheral edema in the lower extremities bilaterally Skin: No jaundice or rashes Labs & Imaging Reviewed. Assessment and Recommendations Derrick Hobson is a 68 y.o. male with history of reported midrange ejection fraction, COPD, alcohol and cocaine use disorders, treated HCV who presented as a transfer to the [facility] for multisystem organ failure and multifactorial shock. Patient is overall stable/recovering today. [place]-Phani catheter numbers highlight a mixed shock state with low cardiac index off of inotrope he and low initial SVR indicating distributive physiology. He is currently being treated for pneumonia. Regarding his cardiomyopathy, TTE from 2 days ago shows severe biventricular dysfunction. Diffuse hypokinesis of the left ventricle with regionality raises the question of underlying ischemic cardiomyopathy. The low-level troponin and nonischemic EKG makes the likelihood of an inciting LA unlikely. Yang Cardiac output calculated today is 5.7 L/min, CI is 2.8 L/min/m^2. This assumes arterial sat of 91% from ABG at 0400 as well as VO2 of 125 x BSA. Low mixed venous o2 is reflective of high oxygenextraction, both from present anemia as well as relatively low CO. This appears to be correlating with collected thermodilution numbers. -continue to collect SGC numbers per protocol -shock labs q 6hrs -attempt dobutamine wean as tolerated -agree with gentle fluid removal via CRRT -ischemic evaluation and GDMT initiation as the patient improves -continue heparin gtt for Afib, Hrs are currently appropriate given the shock state Plan of care discussed w/ Dr. Jeremías MINA Motion Study Technician, PGY5 Associated attestation - Damon Veronica MD - 06/27/2023 2750 EDT I have seen and evaluated the patient. I agree with the assessment and plan as outlined by Dr. Mina. Now off levophed and tolerating dobutamine wean thus far. Hopefully will continue to improve with supportive care in coming days. Damon Veronica MD [facility] * Mary Addison, RD - 06/27/2023 1467 EDT Brief Nutrition Note: See RD note dated 06/25 for full assessment. Promote running at 50 ml/hr. Also receiving 30 ml prosource BID. Daily total = 1440 kcals, 135 g protein daily. Propofol at 12 ml/hr continuous = 317 kcalsfrom lipid daily. Enteral nutrition recommendations provided in below meet 100% estimated kcal/protein needs with propofol at current rate. Lab Results Component Value Date/Time NA 139 06/27/2023 04:03 K 3.8 06/27/2023 04:03 CO2 19 (L) 06/27/2023 04:03 CL 112 (H) 06/27/2023 04:03 BUN 4 (L) 06/27/2023 04:03 CREATININE 0.50 (L) 06/27/2023 04:03 GLUCOSEPOC 113 (H) 06/27/2023 12:15 CALCIUM 7.5 (L) 06/27/2023 04:03 PHOS 1.8 (L) 06/27/2023 04:03 MG 1.8 06/27/2023 04:03 Lab Results Component Value Date/Time GLUCOSEPOC 113 (H) 06/27/2023 12:15 GLUCOSEPOC 117 (H) 06/27/2023 04:06 GLUCOSEPOC 111 (H) 06/26/2023 18:55 GLUCOSEPOC 132 (H) 06/26/2023 11:41 GLUCOSEPOC 115 (H) 06/26/2023 05:49 Lab Results Component Value Date/Time ALT 2,114 (H) 06/27/2023 04:03 AST 6,405 (H) 06/27/2023 04:03 ALKPHOS 182 (H) 06/27/2023 04:03 TBIL 3.4 (H) 06/27/2023 04:03 TRIG 72 06/27/2023 04:03 Estimated Nutrition Needs: using 80.3 kg [place] 2003b = 1900 kcals/day MSJ x1.1-1.2 = 5295-8812 kcals/day 2-2.5 g protein/kg = 161-201 g protein/day on CRRT Fluids per primary team RD with order writing privileges and will adjust TF: Enteral Nutrition - Continuous - Peptamen Intense VHP at 50 mL/hr + 60 ml prosource TID - Goal TF + prosource would provide 1560 calories, 200 g protein, and 1010 mL water daily Phos low, please replete Mary Addison RD, CD (Call PAS or use [employer] ([employer]) to page RD covering this unit) * Charanjit Taylor MD - 06/27/2023 0757 EDT Critical Care Progress Note Service Date: 06/27/2023 Admit Date: 06/25/2023 13:23 Reason for Admission to ICU: 68 y.o. male transferred from [facility] for cardiogenic shock and multiorgan failure. Critical and life-threatening events over the past 24 hours: - 1 unit FFP given - Pulmonary artery catheter placed - Attempted to wean dobutamine overnight - MAP dropped, noted to have cool extremities, dobutamine increased back to 5 Subjective/Objective Subjective Intubated, still with residual sedation, not yet interactive. Review of Systems Review of systems not obtained due to patient factors: Unconsciousness and Ventilated Objective Vital signs: Blood pressure (!) 76/59, pulse 102, temperature 37 ??C (98.6 ??F), resp. rate 19, height 182.9 cm (72), weight 80.3 kg (177 lb), SpO2 100 %. PA wedge pressures: 22-24 Ventilator Settings: Mode: VC-AC Rate: 14 bmp Vt 620 mL PS: PEEP 10 cmH2O FiO2: 40 % BIPAP FiO2 FIO2 %: 40 % Flow Physical Exam General: Intubated, off propofol x3h at the time of this exam. Chronically ill appearing male. HEENT: Normocephalic, atraumatic. Heart: Regular rate and irregularly irregular rhythm. No murmurs appreciated. Lungs: Intubated, symmetric chest rise, overriding vent. Clear to auscultation in anterior [place]ckee bilaterally. No wheezes or crackles. Abdomen: Soft, distended, no palpable masses or organomegaly. : Al[place] in place draining scant yellow urine. Extremities: 2+, improved from yesterday, distal pulses not palpable. L foot warm, R foot cooler. Skin: No rashes on exposed skin. No jaundice. Neuro: Localized withdrawal from pain in both legs, but not in either arm. Responds to sternal rub with face scrunching and arm flexion. Does not open eyes to sternal rub or voice. Not following commands. Ins/Outs: Intake/Output Summary (Last 24 hours) at 06/27/2023 1332 Last data filed at 06/27/2023 1300 Gross per 24 hour Intake 2904.13 ml Output 3565 ml Net -660.87 ml Labs ABG Latest Reference Range & Units 06/27/23 04:31 pH, Arterial, i-STAT 7.35 - 7.45 7.41 PCO2, Arterial, i-STAT 35 - 45 mmHg 24 (L) pO2, Arterial, i-STAT 80 - 105 mmHg 58 (L) TCO2, Arterial, i-STAT 22 - 26 mmol/L 16 (L) O2 Saturation, Arterial, i-STAT 95 - 98 % 91 (L) Base Excess(+) / Deficit(-), Arterial, i-STAT -2 - 3 mmol/L -8 (L) (L): Data is abnormally low BMP Lab Results Component Value Date NA 139 06/27/2023 K 3.8 06/27/2023 CL 112 (H) 06/27/2023 CO2 19 (L) 06/27/2023 ANIONGAP 8 06/27/2023 SERGLU 118 (H) 06/27/2023 CALCIUM 7.5 (L) 06/27/2023 BUN 4 (L) 06/27/2023 CREATININE 0.50 (L) 06/27/2023 CALCGFR 111 06/27/2023 CMP Lab Results Component Value Date NA 139 06/27/2023 K 3.8 06/27/2023 CL 112 (H) 06/27/2023 CO2 19 (L) 06/27/2023 SERGLU 118 (H) 06/27/2023 BUN 4 (L) 06/27/2023 CREATININE 0.50 (L) 06/27/2023 CALCGFR 111 06/27/2023 TP 5.5 (L) 06/27/2023 ALKPHOS 182 (H) 06/27/2023 AST 6,405 (H) 06/27/2023 ALT 2,114 (H) 06/27/2023 TBIL 3.4 (H) 06/27/2023 CALCIUM 7.5 (L) 06/27/2023 AGRATIO 0.8 (L) 06/27/2023 ANIONGAP 8 06/27/2023 Lab Results Component Value Date WBC 15.95 (H) 06/27/2023 HGB 7.9 (L) 06/27/2023 HCT 24.3 (L) 06/27/2023 MCV 73 (L) 06/27/2023 PLT 131 (L) 06/27/2023 Lab Results Component Value Date INR 3.3 (H) 06/27/2023 INR 4.1 (HH) 06/26/2023 INR 3.8 (H) 06/25/2023 PROTIME 36.6 (H) 06/27/2023 PROTIME 44.6 (H) 06/26/2023 PROTIME 41.9 (H) 06/25/2023 Lab Results Component Value Date DDIMER 4,290 (H) 06/26/2023 Lactate 2.6 --> 1.3 Imaging 06/25 LE Duplex: No evidence of deep or superficial venous thrombosis in the right lower extremity. No evidence of deep or superficial venous thrombosis in the left lower extremity. Cardio No new cardiac studies. Micro 06/24 Bcx x2 - No growth to date Assessment/Plan Assessment Derrick Hobson is a 68 y.o. male with limited medical records available but a PMH significant for AF, COPD, Hep C who presented for epistaxis, now complicated by hypotension, new severe systolic heart failure, AHRF, electrolyte derangements, and oliguria, consistent with cardiogenic shock, possibly stress cardiomyopathy, shock liver, and acute kidney failure of uncertain etiology at this time. Transferred to [facility] for initiation of dialysis. Based on improvement in LFTs and successful weaning of levophed this morning even while on dobutamine, his liver function and overall SVR has improved since admission. Wedge pressures are consistent with ongoing cardiogenic shock which seems to be the driving component of his systemic shock. Suspect that there is also a component of septic shock, however his CVP is adequate/high indicating that septic shock is resolving. Plan to try to de-escalate interventions today, including weaning off sedation, pressors, inotropes if possible, and CRRT. 68-year-old man, in cardiogenic shock, acute renal failure, acute hypoxemic respiratory failure. [place]-Phani catheter was placed yesterday, his index has been okay but on inotropic therapy, SVR inappropriately normal suggesting mixed shock picture, wean of inotropic therapy attempted overnight led topoor peripheral perfusion on exam, was increased again to 5 mcg/kg/min. This morning, seems to havestabilized, we will wean vasopressors, try weaning inotropes again if tolerated. Continue volume removal, filling pressures are beginning to normalize but still elevated. Will continue antibiotics for now though no clear infection as of yet. Also try to hold sedation, and see what his mental status is. His mental status is not improved after consider injury related to hypoglycemia, or hypoperfusion. Plan Pulmonary # Acute hypoxic respiratory failure # Possible pneumonia Intubated on fairly minimal vent settings. Unclear from records whether he was intubated for respiratory support needs or for airway protection, but continues to be ventilated due to AMS. Chest CT with consolidations that are somewhat concerning for pneumonia, and findings of pulmonary edema which is consistent with his overall clinical picture. - Intubated - Ceftriaxone 2g q24h x7 days - Trial sedation weaning today; SBT if successful. - Diuresis with CRRT as below - Not trending procal - inaccurate with kidney failure # COPD Does not appear to be in a COPD exacerbation. - Cont PICTURE PAINTER albuterol PRN - Cont PICTURE PAINTER duonebs Cardiac # Hypotension - improving # Cardiogenic shock # Severe systolic heart failure (EF 20-25%) # Elevated troponin # Elevated lactate PA catheter in place with wedge pressures in low 20s, consistent with ongoing cardiogenic shock. CVP elevated indicating vasopressors can hopefully be weaned further and he would benefit from furtherdiuresis. - HFrEF with regional wall motion abnormalities - will need ischemic workup when more stable - Cardiology consulted, appreciate recs - Levophed - wean today - Dobutamine 5mcg/kg/min - wean today if stable off levophed # Chronic Afib - Tele - Hold PICTURE PAINTER metoprolol while in cardiogenic shock. Rate currently well controlled. - AC with heparin per CRRT protocol # Chronic HTN (presumed from med list) - Hold PICTURE PAINTER metoprolol, spironolactone while on pressors/hyperkalemic Renal # Acute kidney failure, suspected ATN # Diffuse edema # Hyperkalemia - resolved on CRRT L IJ dilaysis line in place. On CRRT with normalization of electrolytes. Expect that he is still inATN as he is still oliguric, but plan to trial off CRRT at the end of this cycle. - Nephrology consulted, appreciate recs - Goal net neg 1-1.5L today - Avoid nephrotoxins - Trend BMP q6h - Strict I/O GI Nutrition # Shock liver - improving - Management of cardiogenic shock as above - Avoid hepatotoxins - Daily CMP Last BM: Unknown/PICTURE PAINTER - Trickle tube feeds - bowel regimen Infectious Disease Concern for infection/septic shock; previously thought to have toxic shock syndrome and treated with cefepime and vancomycin. We have lower concern for toxic shock syndrome given the lack of rash, however with consolidation on chest CT, procal 3.37, WBC count of 20, previous fever, and largely out of an abundance of caution with this patient's unclear clinical picture, will continue empiric antibiotics. - Ceftriaxone 2g q24h x7 days Hematologic # Microcytic anemia - Likely iron deficiency/acute blood loss anemia complicated by DIC/hemolysis - Daily CBC # Coagulopathy # DIC - improving Pattern of rising PTT, PT, D-dimer and a low fibrinogen is consistent with DIC, possibly complicated by suspected chronic liver disease though difficult to evaluate given lack of previous labs. Will continue to monitor for signs of active bleeding and repeat coags with or without TEG in the event of further bleeding. - Daily PT/PTT - S/p 1 unit FFP 06/25 - S/p 2x Vit K 10mg - hold further doses with improved coags today Neurologic # Decreased mentation Continues to be minimally responsive after 3h off propofol, however this may be due to slow hepaticmetabolism in the context of his shock liver. Plan to reassess towards the end of the day. # Facial twitches One-sided facial twitches observed by nursing staff. EEG negative so far but he is still on propofol. - EEG until clear off sedation, hopefully today # Mood disorder - Cont PICTURE PAINTER Citalopram 20mg daily # ?Neuropathic pain - Hold PICTURE PAINTER Cyclobenzaprine 10mg daily, Gabapentin 800mg TID with liver/kidney injury Endocrine # Hypoglycemia - resolved Hypoglycemic to 12 prior to transfer. Now resolved. Unclear etiology of this hypoglycemia, could indicate severe hepatic dysfunction however would not expected to resolve so quickly. Continue to monitor with POC glucose q6h. - Goal glucose 100-180 Prophylaxis - DVT ppx - held with elevated INR - HOB elevated - maintain SCDs - Cont PICTURE PAINTER pantoprazole Communication Code Status: Full Code. Critical Care Daily Checklist: Completed Khushi Young MD Family Medicine PGY1 Epic Chat or Pager #[phone] 06/27/23 13:32 Attending attestation statement: I saw and examined the patient with the resident and agree with the findings and plans as documented, and as amended in blue. Clinical Condition: Derrick oHbson is a critically ill 68 y.o. male. Over the past 24 hours, there has been a high probability of sudden, clinically significant or life threatening deterioration in the patient???s condition, which include the following diagnoses which I have managed: Principal Problem: Cardiogenic shock (HCC-CMS) Active Problems: Acute hypoxemic respiratory failure (HCC-CMS) JOS (acute kidney injury) (HCC-CMS) Lactic acidosis Encephalopathy Shock liver Coagulopathy (HCC-CMS) Type 2 diabetes mellitus Critical Care time was provided in the form of interventions to treat and prevent further life threatening deterioration of the patient???s condition including: Management of mechanical ventilation, Management of pain and sedation, Fluid and electrolyte management, Continuous renal replacement thera py, Antimicrobial therapy, Management of vasopressors, and Management of inotropic agents, and highcomplexity decision making regarding need for additional imaging studies and / or interventional radiology interventions and the need for critical procedures, such as: EDMAR cath . My bedside involvement was required to monitor and direct the critical care that has been provided.Exclusive of procedures, my critical care time is 50 minutes. Charanjit Taylor MD MICU Attending 06/27/2023 * Prudencio Townsend, RT - 06/27/2023 0537 EDT 3Respiratory Progress Note Indications for Respiratory therapy: Respiratory Failure/ Vent Data Vitals: Heart Rate: 96 BPM, Resp: 24, SpO2: 100 % FIO2/O2 Device: 7.5 ett 25 cm @ the lip VCAC: VT 620 rr 18 peep 10+ Fio2 40% Action/Events Patient care assumed at 2300. Patient tolerating full vent support this overnight, with no SBT preformed per 10 of peep. 0431 blood gas AB.41 / 24 paco2 / 58 pao2 / 16 tco2. Fio2 increased to 40%, Dr. Pimentel notified. Will continue to monitor and wean fio2 per patienttolerance. PRUDENCIO TOWNSEND, RT 06/27/23 * Kael De Los Santos RT - 06/26/20232055 EDT Respiratory Progress Note Indications for Respiratory therapy: Ventilator Data Vitals: Heart Rate: 98 BPM, Resp: 24, SpO2: (!) 86 % FIO2/O2 Device: , , O2 Device: Intubated, FIO2 %: 30 % RT Orders: Ventilator Action Took over care at 11am. Patient stable with increased mucus production, Large amounts of Trejo /Brownsecretions with a sputum sample sent to lab, Xray obtain showing consolidation in basal areas. 7.5 @ 25cm AC/VC 18/620/+10/30% FIO2. Patient had a swanz phani placed today after central line removal. After rounds with MD's we increased PEEP to +10 to help in recruitment of lungs. Patient gets very agitated and I had to deflate cuff and advance ETT back to proper position. Patient tolerated well. RT HAL 06/26/23 * Lisa Vivar RN - 06/26/2023 1806 EDT Dialysis/CRRT Final Verification Completed with Derrick Maldonado Acute breaker table worker * Derrick Maldonado RN - 06/26/2023 1641 EDT CRRT Procedure Note Initiation or restart: restart Access: L IJ Changes made in prescription: CRRT B Fluid goals: 180ml/hr Heparin: yes Plans for restart should system fail: Maybe - Contact Janitorial Maintenance Worker via PAS Final verification done with Theo MALDONADO RN 06/26/2023 16:41 * Esmer Jaeger MD - 06/26/2023 1157 EDT NEPHROLOGY CONSULT PROGRESS NOTE Admit Date: 06/25/2023 Hospital Day: LOS: 1 day Date of Service: 06/26/2023 Attending Physician: Charanjit Taylor MD Reason for Consult: Acute renal failure 24-hour events/Subjective: Patient remains intubated, sedated. On Dobutamine and Levo. Trying for net some fluid off with CRRT ROS: Unable to assess Current medications: Current Facility-Administered Medications Medication Route Frequency alteplase (CATHFLO ACTIVASE) injection 2 mg intercatheter PRN aspirin EC tablet 81 mg oral DAILY cefTRIAXone (ROCEPHIN) 2,000 mg in sodium chloride (NS MBP) 50 mL IVPB intravenous DAILY citalopram (CELEXA) tablet 20 mg oral DAILY dextrose 50 % solution DOBUTamine (DOBUTREX) 500 mg in D5W 250 mL infusion intravenous CONTINUOUS fentaNYL citrate (PF) injection 25 mcg intravenous Q4H PRN heparin 1,000 unit/mL injection 2,400 Units intravenous PRN Or heparin 1,000 unit/mL injection 1,200 Units intravenous PRN heparin in 1/2 NS 25,000 unit/250 mL infusion intravenous CONTINUOUS iohexoL (OMNIPAQUE 350) solution 100 mL intravenous Once in imaging lidocaine (PF) 10 mg/mL (1 %) injection 2 mg intradermal PRN magnesium sulfate 2 g in water 50 mL intravenous PRN multivitamin (NEPHROVITE) 0.8 mg tablet 1 Tablet per ng tube QHS Multivitamins with minerals + ferrous gluconate (CENTRUM) oral solution 15 mL feeding tube DAILY norepinephrine (LEVOPHED) 8 mg in NS 250 mL infusion intravenous CONTINUOUS pantoprazole (PROTONIX) tablet 40 mg oral DAILY papain-alpha amylase-cellulase (CLOG ZAPPER) 2-5 mL feeding tube PRN phytonadione (VITAMIN K) 10 mg in sodium chloride (NS) 0.9 % 50 mL IVPB intravenous Now polyethylene glycol 3350 (MIRALAX) packet 17 g oral DAILY promote per ng tube CONTINUOUS propOFol (DIPRIVAN) 1000 mg in 100 mL infusion intravenous CONTINUOUS senna (SENOKOT) tablet 2 Tablet oral BID PRN Or sennosides (SENOKOT) syrup 17.6 mg per ng tube BID PRN I+O: Intake/Output Summary (Last 24 hours) at 06/26/2023 1157 Last data filed at 06/26/2023 1100 Gross per 24 hour Intake 1575.41 ml Output 2391 ml Net -815.59 ml Weight: Wt Readings from Last 5 Encounters: 06/25/23 80.3 kg (177 lb) Physical Examination: BP (!) 81/64 Temp 37.2 ??C (99 ??F) Resp 18 Ht 182.9 cm (72) Wt 80.3 kg (177 lb) Comment: Simultaneous filing. User may not have seen previous data. SpO2 96% BMI 24.01 kg/m?? General Appearance: No Acute Distress HEENT : Negative Heart: Regular Rate/Rhythm Lungs: Clear to Auscultation Abdomen: Soft Extremities: 2+ Edema : Alston Present Neuro: Sedated Psych: Sedated Skin: normal coloration and turgor, no rashes, no suspicious skin lesions noted. Extracellular volume is assessed as high Dialysis Access: A dialysis access is present. Data Review: Reviewed in [facility], notable for the following: CBC: Lab Results Component Value Date WBC 22.33 (H) 06/26/2023 RBC 3.72 (L) 06/26/2023 HGB 9.1 (L) 06/26/2023 HCT 27.6 (L) 06/26/2023 MCV 74 (L) 06/26/2023 MCH 24.5 (L) 06/26/2023 MCHC 33.0 06/26/2023 PLT 162 06/26/2023 NEUTROABS 20.74 (H) 06/26/2023 Nephrology profile: Lab Results Component Value Date NA 133 (L) 06/26/2023 K 4.5 06/26/2023 CL 103 06/26/2023 CO2 20 (L) 06/26/2023 BUN 22 06/26/2023 CREATININE 1.58 (H) 06/26/2023 CALCIUM 7.3 (L) 06/26/2023 PHOS 3.7 06/26/2023 LABALBU 2.5 (L) 06/26/2023 Recent Labs 06/25/23 1413 06/25/23 1710 06/25/23 2116 06/26/23 0109 CREATININE 2.86* 3.07* 2.50* 1.58* Baseline creatinine: Unknown ASSESSMENT: 68y M with PMH of treated Hep C, COPD, HFrEF, alcohol and cocaine use disorder admitted for shock with renal and respiratory failure -Shock, cardiogenic vs septic shock. On Dobutamine and Levophed. -Renal failure most likely ATN in setting of shock. Has elevated liver enzymes suggestive of shock liver with initial elevated lactic acid. Started on CRRT for electrolyte and volume balance. RECOMMENDATIONS: -Continue CRRT -Ok to aim for 50-100cc net negative an hour as tolerated -Dose antibiotics for CRRT -Strict I/Os -Please call with any questions or concerns Esmer Jaeger MD 06/26/2023 11:57 * Lisa Zafar, - 06/26/2023 0900 EDT Respiratory Progress Note Indications for Respiratory therapy: Respiratory Failure/ Vent Data Vitals: Heart Rate: 101 BPM, Resp: 18, SpO2: 94 % FIO2/O2 Device: 7.5 ett 25 cm @ the lip VCAC: VT 620 rr 18 peep 8 Fio2 30% Action/Events 0730- Vent check completed. ETT site assessment without injury. Fio2 decreased to 30%. Suction not indicated. 0745- VT increased to 620 cc. (8cc/ kg) to reduce WOB. Response/Results Continue as ordered. RT HADLEY 06/26/23 * Charanjit Taylor MD - 06/26/2023 0644 EDT Critical Care Progress Note Service Date: 06/26/2023 Admit Date: 06/25/2023 13:23 Reason for Admission to ICU: 68 y.o. male transferred from [facility] for cardiogenic shock and multiorgan failure. Critical and life-threatening events over the past 24 hours: - Trialysis line placed - CRRT initiated with correction of electrolyte derangements - Attempted to wean sedation last night, but became combative and pulling out lines. Subjective/Objective Subjective Intubated, sedated. Review of Systems Review of systems not obtained due to patient factors: Unconsciousness and Ventilated Objective Vital signs: Blood pressure (!) 87/66, temperature 36.9 ??C (98.5 ??F), temperature source Esophageal, resp. rate 19, height 182.9 cm (72.01), weight 80.3 kg (177 lb), SpO2 98 %. Ventilator Settings: Mode: VC-AC Rate: 18 bmp Vt 510 mL PS: PEEP 10 cmH2O FiO2: 40 % BIPAP FiO2 FIO2 %: 40 % Flow Physical Exam General: Intubated, sedated, not agitated. Chronically ill appearing male. HEENT: Normocephalic, atraumatic. Heart: Regular rate and irregularly irregular rhythm. No murmurs appreciated. 3+ peripheral edema at ankles extending up to thighs, unchanged from yesterday. Lungs: Intubated, symmetric chest rise, slightly overriding vent. Clear to auscultation in anteriorfields bilaterally. No wheezes or crackles. Abdomen: Soft, distended, no palpable masses or organomegaly. : Alston in place draining dark yellow urine. Extremities: Edematous, distal pulses not palpable. Skin: Waxy appearing skin without rashes on exposed skin; slightly improved coloration from yesterday. No jaundice. Distal extremities are warmer today than yesterday Neuro: limited by sedation. He withdraws to pain in all 4 extremities, sedation holidays have been limited due to CRRT Ins/Outs: Intake/Output Summary (Last 24 hours) at 06/26/2023 0645 Last data filed at 06/26/2023 0600 Gross per 24 hour Intake 1134.55 ml Output 1790 ml Net -655.45 ml Labs Latest Reference Range & Units 06/26/23 10:05 O2 Saturation, Venous 60 - 85 % 73 pH, Venous 7.31 - 7.41 7.42 (H) PCO2, Venous 41 - 51 mmHg 33 (L) PO2, Venous 30 - 50 mmHg 42 tCO2, Venous 22 - 28 mmol/L 21 (L) Base Level -2.00 - 3.00 mmol/L -3.50 (L) (H): Data is abnormally high (L): Data is abnormally low BMP Lab Results Component Value Date NA 133 (L) 06/26/2023 K 4.5 06/26/2023 CL 103 06/26/2023 CO2 20 (L) 06/26/2023 ANIONGAP 10 06/26/2023 SERGLU 106 (H) 06/26/2023 CALCIUM 7.3 (L) 06/26/2023 BUN 22 06/26/2023 CREATININE 1.58 (H) 06/26/2023 CALCGFR 47 (L) 06/26/2023 CMP Lab Results Component Value Date NA 133 (L) 06/26/2023 K 4.5 06/26/2023 CL 103 06/26/2023 CO2 20 (L) 06/26/2023 SERGLU 106 (H) 06/26/2023 BUN 22 06/26/2023 CREATININE 1.58 (H) 06/26/2023 CALCGFR 47 (L) 06/26/2023 TP 5.6 (L) 06/26/2023 ALKPHOS 156 (H) 06/26/2023 AST >15,000 (H) 06/26/2023 ALT 3,381 (H) 06/26/2023 TBIL 2.7 (H) 06/26/2023 CALCIUM 7.3 (L) 06/26/2023 AGRATIO 0.8 (L) 06/26/2023 ANIONGAP 10 06/26/2023 Lab Results Component Value Date WBC 22.33 (H) 06/26/2023 HGB 9.1 (L) 06/26/2023 HCT 27.6 (L) 06/26/2023 MCV 74 (L) 06/26/2023 PLT 162 06/26/2023 Lab Results Component Value Date INR 4.1 (HH) 06/26/2023 INR 3.8 (H) 06/25/2023 PROTIME 44.6 (H) 06/26/2023 PROTIME 41.9 (H) 06/25/2023 Lab Results Component Value Date DDIMER 4,290 (H) 06/26/[address] ANGIO CHEST PE PROTOCOL Result Date: 06/25/2023 1. No evidence of acute or chronic pulm embolism. 2. Consolidation of the majority of the right lower lobe with some decreased parenchymal enhancement inferiorly concerning for pneumonia. Groundglassopacifications anteriorly in the right upper lobe and lingula are also favored to be in infectious in etiology. 3. Bilateral pleural effusions, moderate on the right and small in the left. Cannot exclude empyema. 4. Biatrial enlargement. Some component of the peribronchovascular thickening and effusions may be related to heart failure/pulmonary edema, as well as a diffuse body wall edema. 5. Endotracheal tube tip terminates about 1.5 cm from the sidra, consider slight retraction. Transesophageal tube, esophageal temperature probe, and bilateral IJ central lines are properly positioned. 6. There are some top normal mediastinal lymph nodes, favored to be reactive. CT ABDOMEN PELVIS W CONTRAST Result Date: 06/25/2023 1. Diffuse concentric bladder wall thickening with adjacent fluid which can be seen with urinary tract infection. Clinical correlation with urinalysis is recommended. 2. Ill-defined wedge-shaped hypodensity along the posterior margin of the right kidney, which could represent an age-indeterminate renal infarct or pyelonephritis in the appropriate clinical setting. Clinical correlation with urinalysis is recommended. 3. Multiple nondistended loops of small bowel filled with fluid favored relatedto shock etiology given patient history; however, enteritis cannot entirely be excluded. The bowel appears well perfused with no evidence of pneumatosis, portal venous gas, or free air. 4. Moderate volume peritoneal free fluid and diffuse body wall edema, nonspecific, but could also represent sequela of shock. 5. Age indeterminant mild compression deformity of the superior endplate of L2 with no evidence of retropulsion of fracture fragments or involvement of the posterior elements. 6. Atherosclerosis. 7. Cholelithiasis. CT HEAD WO CONTRAST Result Date: 06/25/2023 No evidence of acute infarction, intracranial hemorrhage, or mass. XR CHEST LINE PLACEMENT Result Date: 06/25/2023 1. New left IJ central venous catheter with tip in the SVC. 2. Otherwise grossly stable exam from 4hours prior. [id number] XR CHEST PORTABLE LINE PLACEMENT Result Date: 06/25/2023 Dense right lower lobe opacification may reflect either pneumonia or atelectasis. There is likely an associated right pleural effusion. Left lower lobe changes are most likely reflective of interstitial edema. Tubes and lines in position as detailed. Probable chronic posttraumatic abnormalities of the distal right clavicle status post left reverse total shoulder arthroplasty. [id number] Cardio 06/24 TTE: Left Ventricle: Left ventricular systolic function was severely decreased with an ejection fractionof ~20%. There was mild concentric hypertrophy of the left ventricle. There was severe diffuse hypokinesis with akinesis of the mid to apical inferoseptal wall, anterosepal wall and apex. There was apossible small LV thrombus associated with the akinetic apex seen with Definity. Right Ventricle: The right ventricular cavity was severely dilated in size. Right ventricular systolic function was severely reduced. Right Atrium: Right atrial cavity was severely dilated. There was a mobile filamentous structure inthe RA that appears attached to the intraatrial septum. This may represent a benign strucuture suchas a prominent chiari network although thrombus/vegetation etc are on differential. Left Atrium: Left atrial cavity was severely dilated. Tricuspid Valve: There was annular dilation. There was severe tricuspid valve regurgitation. Pulmonic Artery: Pulmonary systolic pressure was increased, >= 40 mmHg. IVC/SVC: The inferior vena cava was moderately dilated. The inferior vena cava demonstrated a diameter of >21 mm and collapses <50%; therefore, the right atrial pressure is estimated at greaterthan 15 mmHg Micro 06/24 Bcx x2 - No growth to date Assessment/Plan Assessment Derrick Hobson is a 68 y.o. male with limited medical records available but a PMH significant for AF, COPD, Hep C who presented for epistaxis, now complicated by hypotension, new severe systolic heart failure, AHRF, electrolyte derangements, and oliguria, consistent with cardiogenic shock, possibly stress cardiomyopathy, shock liver, and acute kidney failure of uncertain etiology at this time. Transferred to [facility] for initiation of dialysis. It is unclear at this time where this multiorgan failure started, possibly due to metabolic derangements versus an undiagnosed chronic disease. Appreciate input from nephrology and cardiology consults on this matter. Toxic shock syndrome was considered in the context of nasal rocket, however he does not have the classic skin findings. Lower concern for infectious etiology/septic shock, however will continue antibiotics for the time being out of abundance of caution. Overall with normalization of electrolytes after initiation of CRRT, however still critically ill in cardiogenic shock requiring pressors and currently unable to wean sedation or extubate at this time due to ongoing AMS. Plan to check [place] Phani pressures today to assess for any change in cardiac function. 68-year-old with acute respiratory failure, cardiogenic shock, encephalopathy, shock liver, acute renal failure, lactic acidosis. The cause of this could be an acute decrease in his cardiac function but an infection is also possible. The medical history is limited but we suspect he has some degree of chronic systolic dysfunction that may have acutely worsened in the setting of stress (hypoglycemic event?), we are trying to reach family, and obtain additional history but have had difficulty in doing so. He remains on vasopressors and inotropic therapy today, in light of this cardiogenic shock picture, and his oligoanuria, a PA catheter could be helpful in guiding hemodynamic management. Withhis coagulopathy will give FFP, and then tentatively plan for this procedure. Ideally he would obtain consent however we're unable to reach any family for this but I think it is reasonable to proceedso that we can support him as best as possible. In the meantime we will continue supportive care shai sures, antibiotics, follow cultures, follow markers of perfusion, remove volume with CRRT Plan Pulmonary # Acute hypoxic respiratory failure Intubated on fairly minimal vent settings. Unclear from records whether he was intubated for respiratory support needs or for airway protection. Chest CT with consolidations that are somewhat concerning for pneumonia, and findings of pulmonary edema which is consistent with his overall clinical picture. - Intubated - Trial sedation weaning tomorrow. - Diuresis with CRRT as below # COPD Does not appear to be in a COPD exacerbation. - Cont PICTURE PAINTER albuterol PRN - Cont PICTURE PAINTER duonebs Cardiac # Hypotension # Cardiogenic shock # Severe systolic heart failure (EF 20-25%) # Elevated troponin # Elevated lactate - Cardiology consulted, appreciate recs - Levophed - Dobutamine 5mcg/kg/min - swan phani catheter today # AF - Tele - Hold PICTURE PAINTER metoprolol while in cardiogenic shock - AC with heparin per CRRT protocol # Chronic HTN (presumed from med list) - Hold PICTURE PAINTER metoprolol, spironolactone while on pressors/hyperkalemic Renal # Oliguria # Acute kidney failure # Diffuse edema L IJ dilaysis line in place. On CRRT with normalization of electrolytes - Nephrology consulted, appreciate recs - Goal net neg 1-1.5L today - Avoid nephrotoxins - Trend BMP q6h - Strict I/O #Hyperkalemia - improved. S/p insulin/glucagon, c calcium gluconate, Lokelma, Lasix with minimal improvement. Now managed with CRRT. - Trend lytes. GI Nutrition # Shock liver - Management of cardiogenic shock as above - Avoid hepatotoxins - Daily CMP Last BM: Unknown/PICTURE PAINTER - Trickle tube feeds - bowel regimen Infectious Disease Some concern for infection/septic shock; previously thought to have toxic shock syndrome and treated with cefepime and vancomycin. We have lower concern for toxic shock syndrome given the lack of rash, however with consolidation on chest CT, procal 3.37, WBC count of 20, previous fever, and largelyout of an abundance of caution with this patient's unclear clinical picture, will continue empiric antibiotics. - Ceftriaxone 2g q24h x7 days Hematologic # Microcytic anemia - Likely iron deficiency/acute blood loss anemia complicated by DIC/hemolysis - Daily CBC # Coagulopathy Pattern of rising PTT, PT, D-dimer and a low fibrinogen is consistent with DIC, however no active bleeding. Plts wnl. May also be complicated by chronic liver disease which we are not seeing due to the lack of previous labs. Will continue to monitor for signs of active bleeding and repeat coags with or without TEG in the event of further bleeding. - Daily PT/PTT - 1 unit FFP today - 1x Vit K 10mg - TEG today Neurologic # Facial twitches One-sided facial twitches observed by nursing staff. EEG negative so far but he is still on propofol. - EEG until clear off sedation. # Mood disorder - Cont PICTURE PAINTER Citalopram 20mg daily # ?Neuropathic pain - Hold PICTURE PAINTER Cyclobenzaprine 10mg daily, Gabapentin 800mg TID with liver/kidney injury Endocrine # Hypoglycemia - resolved Hypoglycemic to 12 prior to transfer. Now resolved. Unclear etiology of this hypoglycemia, could indicate severe hepatic dysfunction however would not expected to resolve so quickly. Continue to monitor with POC glucose q6h. - Goal glucose 100-180 Prophylaxis - DVT ppx - held with elevated INR - HOB elevated - maintain SCDs - Cont PICTURE PAINTER pantoprazole Communication Code Status: Full Code. Critical Care Daily Checklist: Completed Khushi Young MD Family Medicine PGY1 Epic Chat or Pager #[phone] 06/26/23 12:26 Attending attestation statement: I saw and examined the patient with the resident and agree with the findings and plans as documented, and as amended in blue. Clinical Condition: Derrick Hobson is a critically ill 68 y.o. male. Over the past 24 hours, there has been a high probability of sudden, clinically significant or life threatening deterioration in the patient???s condition, which include the following diagnoses which I have managed: Principal Problem: Cardiogenic shock (HCC-CMS) Active Problems: Acute hypoxemic respiratory failure (HCC-CMS) JOS (acute kidney injury) (HCC-CMS) Lactic acidosis Encephalopathy Shock liver Coagulopathy (HCC-CMS) Type 2 diabetes mellitus Critical Care time was provided in the form of interventions to treat and prevent further life threatening deterioration of the patient???s condition including: Management of mechanical ventilation, Management of pain and sedation, Fluid and electrolyte management, Continuous renal replacement thera py, Antimicrobial therapy, Management of vasopressors, and Management of inotropic agents, and highcomplexity decision making regarding need for additional imaging studies and / or interventional radiology interventions and the need for critical procedures, such as: possible PA cath . My bedside involvement was required to monitor and direct the critical care that has been provided.Exclusive of procedures, my critical care time is 65 minutes. Charanjit Taylor MD MICU Attending 06/26/2023 * Celine Warren, RT - 06/26/2023 0513 EDT Respiratory Progress Note Indications for Respiratory therapy: ICU Patient Data Vitals: Heart Rate: (!) 106 BPM, Resp: 19, SpO2: 97 % FIO2/O2 Device: , , O2 Device: Intubated, FIO2 %: 40 % RT Orders: Mechanical Ventilation Volume 510, F18, Peep = 10, FIO2 40 Action/Events Respiratory events; No acute events overnight. Blood Pressure unstable, CRRT initiated and maintained by RN. Non-responsive to vocal stimulation. Very reactive to suctioning -- scant secretions obtained, but coughs for lengthy time, and per RN vagals down. Response/Results Weaning and Toleration of treatments; SBT not performed per physician directive -- does not qualify based on higher PEEP and mental status. CELINE WARREN, RT 06/26/23 * Haley Quiroga RN - 06/26/2023 0009 EDT Data: Intubated and sedated on propofol. Afib. Levophed, dobutamine. Action: Change of shift concern for sz like activity, LUE shaking/facial twitching-EEG ordered CT's completed CRRT initiated-okay per attending to attempt negative hourly Lumens reversed on dialysis machine Weaning of propofol limited by strong cough-vent dysynchrony and crrt alarms- becomes hypotensive with coughing Cycling labs Heparin gtt titrated per order set Levophed titrated as tolerated ICU standards of care IV therapy hard flush of clotted lumen of triple IJ-now flushing with blood return Response: Remains intubated and sedated, CRRT running without issue. Xa due at 1200. HALEY QUIROGA RN 06/26/2023 0:09 * Flower Roblero, DO - 06/25/2023 2359 EDT Preliminary Continuous-Video EEG Report Patient: Derrick Hobson : 1955 Monitoring Period: 23:28 on 06/25/2023 -- 07:27 on 06/26/2023 Preliminary Findings: The patient is intubated and sedated on propofol with no responsiveness to verbal or tactile stimuli. The cerebral background is discontinuous, symmetric, poorly organized and consists of low-medium amplitude 1-2 second theta activity with 3-6 s inter-burst intervals of severediffuse attenuation. The is a paucity of faster frequencies. There is no reactivity or variability,no anterior-posterior gradient, and no posterior-dominant rhythm. There are no epileptiform discharges or seizures. Preliminary Impression: Moderate-severe diffuse background slowing This study is preliminary; a formal report will be populated daily. Flower Roblero DO PGY-5, Clinical Neurophysiology Fellow // * Kayla Tyson RT - 06/25/2023 2142 EDT Respiratory Consult/Progress Note Indications for Respiratory therapy: Ventilator Data Vitals: Heart Rate: 92 BPM, Resp: 18, SpO2: 99 % FIO2/O2 Device: , , O2 Device: Intubated, FIO2 %: 40 % RT Orders: Mechanical Ventilator Respiratory Therapy Evaluation Q4 Protocol Scoring: Bronchodilator/Inhalation Therapy Frequency Bronchodilator - Clinical Indications: History of COPD Breath Sounds: Any abnormal BS decreased Response: No change / no treatment Pulse: <100 Resp Rate: <18 SOB: None Total Score: 1 Comment:: PRN Frequency Based On Total Score: 0-4 = PRN 5-7 = QID 8-10 = Q4H 11-12 = Q2H Airway Clearance Therapy Frequency Frequency Based On Total Score: 0-3 = PRN 4-6 = QID and PRN 7-9 = Q4H and PRN 10-11 = Q2H and PRN Hyperinflation Therapy Frequency Hyperinflation - Clinical Indications: No clinical indications Breath Sounds: Clear Surgery: No X-Ray / Atelectasis: No O2 Requirements: > 4 L above baseline Mobility Status: Mobile / at baseline Total: 3 Comment: Ventilator Frequency Based On Total Score: 0-3 = PRN 4-6 = QID and PRN 7-9 = Q4H and PRN 10-12 = Q2H and PRN Action/Events Patient is intubated with 7.5 ETT 25 @ lip, VC-AC VT 510, RR 18, Peep 10 FIO2 40% Patient has been suctioned for scant amount of thick white secretions. Breath sounds are clear and diminished. Patient tolerating ventilator well. Response/Results Continue Plan of Care Wean ventilator as tolerated. RT RIAZ 06/25/23 * Aruna Flores RN - 06/25/2023 2100 EDT CRRT Procedure Note Initiation or restart: Intiate Access: LIJ Changes made in prescription: New start Fluid goals: Net 0 Heparin: No Plans for restart should system fail: Maybe - Contact Janitorial Maintenance Worker via PAS Verified with Haley FLORES RN 06/25/2023 21:00 * Haley Quiroga RN - 06/25/20232051 EDT Dialysis/CRRT Final Verification Completed with Aruna Ray Acute breaker table worker documented in this encounter H&P Notes * Charanjit Taylor MD - 06/25/2023 1444 EDT MICU Admission H&P Admission Date: 06/25/2023 PCP: Davian Guzman Date of Service: 06/25/2023 Hospital Day: @RRHLOS@ [place] [facility] [place] [address] Time of Evaluation:18:38 CC: No chief complaint on file. HPI: Derrick Hobson is a 68 y.o. male with PMH of Afib, COPD, hep C who presented to [facility] on 06/18 with epistaxis. Yesterday evening he became hypotensive, respiratory failure, K 8, Cr 2.9. He was intubated and started on levophed. Refractory/oliguric to multiple doses of lasix and insulin/glucagon for hyperkalemia. EKG with atrial flutter. Transferred to [facility] for dialysis. From [facility] records: 68-year-old male with history of HFrEF, COPD, treated hep C without known cirrhosis, cocaine use, admitted on 06/18 with severe epistaxis. Rhino Rocket soaked in TXA in the ED, patient rebled. At that point dual-lumen Rhino Rocket placed, still bleeding, Dr. Bhatti from ENT came to adjust and bleeding stopped. Aspirin held on admission. This was his third significant epistaxis in the past. Decision was made to admit to monitor on 06/18. Patient had an episode of bleeding around 1900 on 06/20/2023, and another episode of bleeding at around 7 AM in the morning of 06/21/2023, both episodes resolved after re-inflation of balloons. Given these episodes, decision was made to leave the device in place until ENT available 06/22 2 AM. He was given amoxicillin/clavulanate X1 in the ED when discharge was being considered, then given cefazolin. This was changed to cefepime 06/20 when he had a fever to 38.5 C, which resolved by 06/21 at 8 AM. The patient has a history of hepatitis C and some hepatic dysfunction noted at baseline. INR on admission was 1.4. He was given vitamin K x1 with no change. AST was noted trending up from 42 on admission to 278, but he had a benign abdominal exam. Labs were ordered for 06/23 but that morning he complained that he was exhausted and had not slept in 2 nights, and he refused the labs. He was noted sleeping during the day, but around 5:30 he was sleeping but with poor color, cyanotic extremities, and was difficult to arouse. Rapid response called, FS glucose noted to be 12, given D50 x2 amps, transferred to ICU. He was able to speak and say I am up when being repositioned for vital signs before the D50, but be came more interactive after the dextrose. His blood pressure and oxygenation were normal at that point but he was transferred to the ICU. Alarming labs began to return including K of 7.9 and markedly elevatedAST to 7414 and ALT of 2192. INR up to 2.7. Potassium treated with calcium gluconate, insulin/dextrose. Later bicarb drip and furosemide started. Lokelma given x1. Abdominal ultrasound read pending from 06/22 2 AM, but preliminarily did not show hepatic or portal vein thrombosis. Mild ascites noted. Concern was for tach toxic shock so Rhino Rocket was removed without rebleed just after transfer toICU. In addition to INR, PTT was 37.9, fibrinogen was 248. Vancomycin was added to cefepime at timeof transfer to the ICU. Clindamycin was added later on 06/24 over concern for toxic shock syndrome. Stress dose steroids with hydrocortisone were started upon transfer to ICU after episode of hypoglycemia. POCUS exam showed LVEF 20 to 25%, down from 40% at last echocardiogram done in 2021. Troponin was negative on transfer to ICU. EKGs did not show ischemic changes. Overnight he needed BiPAP for respiratory support, blood pressures did drop into the 60s systolic, the patient was intubated due to concern for airway protection. Norepinephrine started and BP stabilized. Right a IJ line placed. He came off norepi, was given dobutamine after discussion with accepting customer operations intern team. The patient was easy to ventilate, but metabolic acidosis and hyperkalemia were not improving. The patient did have 350 mL of urine in his Al[place] upon transfer but only made about 20 mL of dark urine after that. The patient requested that we did not contact his family when he was still speaking in the ICU for transfer. Upon that transfer his next of kin Tarah Coy was called but was not able to be reached. Review of Systems: A complete 10 point ROS was performed and pertinent positive and negative findings listed in HPI, otherwise negative. PMH PSH History reviewed. No pertinent past medical history. History reviewed. No pertinent surgical history. Social History Family History Social History Tobacco Use Smoking status: Not on file Smokeless tobacco: Not on file Substance Use Topics Alcohol use: Not on file History reviewed. No pertinent family history. Medications Medications Prior to Admission Medication Sig Dispense Refill Last Dose beclomethasone (QVAR) 80 mcg/Actuation inhaler Inhale 2 Puffs as directed 2 times daily. CALCIUM CARBONATE, [id number], (TUMS ORAL) Take 1-5 Tabs by mouth as needed. gabapentin (NEURONTIN) 300 mg tablet Take 3 Tabs by mouth 3 times daily. ibuprofen (MOTRIN) 200 mg tablet Take 4 Tabs by mouth 3 times daily. IPRATROPIUM/ALBUTEROL SULFATE (COMBIVENT INHL) Inhale 2 Puffs as directed every 4 hours as needed. lisinopril (PRINIVIL, ZESTRIL) 20 mg tablet Take 20 mg by mouth daily. tramadol (ULTRAM) 50 mg tablet Take 50 mg by mouth every 6 hours as needed for Pain. Home medications: - Albuterol 90 mcg/actuation 2 puffs q6h PRN - ASA 81mg daily - Celecoxib 100mg BID - Vitamin D3 50 2000 unit daily - Citalopram 20mg daily - Cyclobenzaprin 10mg daily - Gabapentin 800mg TID - Hydrocodone-acetaminophen 10-325mg QID PRN - Duoneb q6h PRN - Metoprolol succinate XR 25mg daily - Pantoprazole 40mg daily - Spironolactone 25mg daily - Sumatriptan 25mg PRN - Topiramate 50mg BID - Verapamil XR 120mg daily - Zolpidem 10mg at bedtime PRN Allergies Allergies Allergen Reactions Clonidine Other (See Comments) Dry mouth Objective and Physical Exam: VITALS: Temp: [35.6 ??C (96.1 ??F)-36.4 ??C (97.6 ??F)] Pulse: [101] BP: (79-125)/(61-82) SpO2: [92 %-100 %] Vent: Mode VC-AC / VT 510 / PEEP 10 / FiO2 40 EXAM: General: Intubated, sedated, not agitated. Chronically ill appearing male with waxy skin. HEENT: Normocephalic, atraumatic. Pupils equal and reactive, no gaze deviation. Blood crusting at nares. Heart: Regular rate and irregularly irregular rhythm. No murmurs appreciated. 3+ peripheral edema at ankles extending up to thighs. Lungs: Breathing comfortably on RA, speaking in full sentences. Clear to auscultation bilaterally. No wheezes or crackles. Abdomen: Soft, distended, no palpable masses or organomegaly. : Alston in place draining dark yellow urine. Extremities: Edematous, distal pulses not palpable. Skin: Waxy appearing skin without rashes on exposed skin. No jaundice. Neuro: limited by sedation, spontaneously moves his extremities Lines: Central venous catheter: yes - day #1 Art line: no ETT: yes - day #1 LABS: CBC: Recent Labs 06/25/23 1413 WBC 21.54* HGB 8.4* HCT 27.4* MCV 79* PLT 158 BMP: Recent Labs 06/25/23 1413 06/25/23 1710 NA 126* 126* K 6.4* 6.3* CL 93* 92* CO2 17* 18* BUN 43* 44* CREATININE 2.86* 3.07* PHOS 6.0* -- CALCIUM 7.4* 7.2* SERGLU 145* 129* Coags: Recent Labs 06/25/23 1413 PROTIME 41.9* INR 3.8* PTT 38* LFTs: Recent Labs 06/25/23 1413 ALT 3,106* AST >15,000* ALKPHOS 106 TBIL 2.2* CONJBILI 0.6* UNCONJBILI 0.4 TP 5.0* LABALBU 2.3* Cardiac Biomarkers: Recent Labs 06/25/23 1413 CK 250 TROPONINI 0.157* ABGs: Recent Labs 06/25/23 1710 BEART -6.70* VBGs: Recent Labs 06/25/23 1710 PHVENOUS 7.38 [id number] 50* Incorrect component name entered: [id number] Lactic Acid: Recent Labs 06/25/23 1413 06/25/23 1710 LACTICACID 4.8* 4.4* Incorrect component name entered: POCTLACTATE UA: Notable for 3+ blood, 1+ protein TTE: Left Ventricle: Left ventricular systolic function was severely decreased with an ejection fractionof ~20%. There was mild concentric hypertrophy of the left ventricle. There was severe diffuse hypokinesis with akinesis of the mid to apical inferoseptal wall, anterosepal wall and apex. There was apossible small LV thrombus associated with the akinetic apex seen with Definity. Right Ventricle: The right ventricular cavity was severely dilated in size. Right ventricular systolic function was severely reduced. Right Atrium: Right atrial cavity was severely dilated. There was a mobile filamentous structure inthe RA that appears attached to the intraatrial septum. This may represent a benign strucuture suchas a prominent chiari network although thrombus/vegetation etc are on differential. Left Atrium: Left atrial cavity was severely dilated. Tricuspid Valve: There was annular dilation. There was severe tricuspid valve regurgitation. Pulmonic Artery: Pulmonary systolic pressure was increased, >= 40 mmHg. IVC/SVC: The inferior vena cava was moderately dilated. The inferior vena cava demonstrated a diameter of >21 mm and collapses <50%; therefore, the right atrial pressure is estimated at greaterthan 15 mmHg. RADIOLOGY: XR CHEST LINE PLACEMENT Result Date: 06/25/2023 1. New left IJ central venous catheter with tip in the SVC. 2. Otherwise grossly stable exam from 4hours prior. [id number] XR CHEST PORTABLE LINE PLACEMENT Result Date: 06/25/2023 Dense right lower lobe opacification may reflect either pneumonia or atelectasis. There is likely an associated right pleural effusion. Left lower lobe changes are most likely reflective of interstitial edema. Tubes and lines in position as detailed. Probable chronic posttraumatic abnormalities of the distal right clavicle status post left reverse total shoulder arthroplasty. [id number] Micro: No micro. ASSESSMENT: Derrick Hobson 68 y.o. male with a PMH significant for AF, COPD, Hep C who presented for epistaxis, now complicated by hypotension, new severe systolic heart failure, AHRF, electrolyte derangements, and oliguria, consistent with cardiogenic shock, possibly stress cardiomyopathy, shock liver, and acute kidney failure of uncertain etiology at this time. Transferred to [facility] for initiation of dialysis. It is unclear at this time where this multiorgan failure started, possibly due to metabolic derangements versus an undiagnosed chronic disease. Appreciate input from nephrology and cardiology consults on this matter. Toxic shock syndrome was considered in the context of nasal rocket, however he does not have the classic skin findings. Lower concern for infectious etiology/septic shock, however will continue antibiotics for the time being out of abundance of caution. 68 y/o M with a h/o substance use, hep C, who decompensated at [facility] during an admission for a nosebleed in the setting of hypoglycemia, now with JOS, shock liver, systolic heart failure, multifactorial shock. The cause of his decompensation is not totally clear, it's possible this is all from cardiac failure like a stress cardiomyopathy possibly ischemic though minimally elevated troponin suggests against this. An infection is also possible so we'll continue antibiotics, follow cultures and obtain CT scans. He'll need urgent RUBBER CUTTING MACHINE TENDER for the hyperkalemia and oligoanuric renal failure. We're tryingto gain further history but family has been hard to reach. Overall will plan for supportive care, RUBBER CUTTING MACHINE TENDER, CT scan, inotropic and vasopressor support and follow course. PLAN: Pulmonary # Acute hypoxic respiratory failure Intubated on fairly minimal vent settings. Unclear from records whether he was intubated for respiratory support needs or for airway protection. CXR relatively clear, possibly with some pulmonary edema. # COPD Does not appear to be in a COPD exacerbation. - Cont PICTURE PAINTER albuterol PRN - Cont PICTURE PAINTER duonebs Cardiac # Hypotension # Cardiogenic shock # Severe systolic heart failure # Elevated troponin # Elevated lactate - Cardiology consulted, appreciate recs - Levophed gtt - Trial dobutamine 5mcg/kg/min # AF - Tele - Hold PICTURE PAINTER metoprolol while in cardiogenic shock # Chronic HTN (presumed from med list) - Hold PICTURE PAINTER metoprolol, spironolactone while on pressors/hyperkalemic Renal #Oliguria # Acute kidney failure - Nephrology consult - Dialysis line placed - Urgent CRRT - Avoid nephrotoxins - Trend BMP - Strict I/O #Hyperkalemia - S/p insulin/glucagon, c calcium gluconate, Lokelma, Lasix with minimal improvement. At least management with CRRT as above. - Trend lytes. GI Nutrition # Shock liver - Management of cardiogenic shock as above - Avoid hepatotoxins - Daily CMP Last BM: Unknown/PICTURE PAINTER - Trickle tube feeds - bowel regimen Infectious Disease Some concern for infection/septic shock; previously thought to have toxic shock syndrome and treated with cefepime and vancomycin. We have lower concern for toxic shock syndrome given the lack of rash, however with WBC count of 20, previous fever, and largely out of an abundance of caution with this patient's unclear clinical picture, will continue empiric antibiotics. - Ceftriaxone 2g q24h x7 days Hematologic # Microcytic anemia - Likely iron deficiency/acute blood loss anemia - Daily CBC # Coagulopathy Pattern of elevated PTT, PT, D-dimer and a low fibrinogen is somewhat concerning for DIC, however no active bleeding. Plts wnl. May also be reflective of chronic liver disease which we are not seeingdue to the lack of previous labs. Will continue to monitor for signs of active bleeding and repeat coags with or without TEG in the event of further bleeding. Neurologic # Facial twitches One-sided facial twitches observed by nursing staff. - EEG ordered. # Mood disorder - Cont PICTURE PAINTER Citalopram 20mg daily # ?Neuropathic pain - Hold PICTURE PAINTER Cyclobenzaprine 10mg daily, Gabapentin 800mg TID with liver/kidney injury Endocrine # Hypoglycemia Hypoglycemic to 12 prior to transfer. Now resolved. Unclear etiology of this hypoglycemia, could indicate severe hepatic dysfunction however would not expected to resolve so quickly. Continue to monitor with POC glucose q6h. - Goal glucose 100-180 Prophylaxis - DVT ppx - held with elevated INR - HOB elevated - maintain SCDs - Cont PICTURE PAINTER pantoprazole Code: Full code Discharge Plan: Pending clinical course Consults: Cardiology, Nephrology Khushi Young MD Family Medicine PGY1 Epic Chat or Pager #[phone] 06/25/23 18:38 Attending attestation statement: I saw and examined the patient with the resident and agree with the findings and plans as documented, and as amended in blue. Clinical Condition: Derrick Hobson is a critically ill 68 y.o. male. Over the past 24 hours, there has been a high probability of sudden, clinically significant or life threatening deterioration in the patient???s condition, which include the following diagnoses which I have managed: Principal Problem: Cardiogenic shock (HCC-CMS) Active Problems: Acute hypoxemic respiratory failure (HCC-CMS) JOS (acute kidney injury) (HCC-CMS) Lactic acidosis Encephalopathy Shock liver Coagulopathy (HCC-CMS) Critical Care time was provided in the form of interventions to treat and prevent further life threatening deterioration of the patient???s condition including: Management of mechanical ventilation, Neurological monitoring, Management of pain and sedation, Fluid and electrolyte management, Continuous renal replacement therapy, Antimicrobial therapy, and Management of vasopressors, and high complexity decision making regarding need for additional imaging studies and / or interventional radiologyinterventions and the need for critical procedures, such as: central line . My bedside involvement was required to monitor and direct the critical care that has been provided.Exclusive of procedures, my critical care time is 110 minutes. Charanjit Taylor MD MICU Attending 06/26/2023 documented in this encounter Procedure Notes * Amadou Cantu RN - 08/06/20231723 EDT Ultrasound dynamic guidance was used for peripheral line insertion. Name of tar distributor operator: Amadou Cantu RN vat LDAINFO BLOCK Peripheral IV 08/06/231721 Right;Anterior Forearm (Active) 08/06/231721 Forearm Dressing Change Due: 08/13/23 Size (Gauge): 22 Catheter Length (Inches): 1 Catheter Brand: B Webb Introcan Orientation: Right;Anterior Site: 0.3cm diameter vessel, 0.22cm diameter vessel Inserted by: Inserted by RN;Ultrasound Guided Insertion attempts: 1 Local Anesthetic: None Skin Antisepsis: 2% Chlorhexidine with IPA Removal Reason : Post Removal Assessment/Care: Size (Gauge): Catheter Length: IV Change Due: Orientation: Criteria to continue met? (chart all reasons) Other (must comment reason) 08/06/231722 Date Dressing Changed 08/06/23 08/06/231722 Dressing date clearly marked on PIV site? Yes 08/06/23 172 Site Assessment Clean/Dry/Intact 08/06/231722 Line Status Flushed;Blood returned;Capped 08/06/231722 Dressing Type Transparent 08/06/231722 Dressing Status/Care Changed/New;Clean/Dry/Intact;Site Cleaned 08/06/23 172 Patient response: tolerated well Patient education: done at the bedside AMADOU CANTU RN 08/06/2023 * Annette Jernigan RN - 07/10/20231944 EDT Rapid Response Team Emergency Response Nurse Consult Only Note NATY only for advancement of small bore feeding tube. Advanced with cortrack machine tracing withoutissue to previous depth of 75cm. XR confirmation completed and MD notified. * Amadou Cantu RN - 07/02/20231952 EDT Central Catheter Insertion First Catheter This Session busher helper: [place] [facility] [id number] Preliminary Data: Insertion Date: 07/02/23 Insertion Time: 1744 First Taxation Inspector: Amadou Cantu RN RN/MA Documenting Procedure: Lowell Marrufo RN Pre-procedure: Time Out / Final Moment Performed: Yes Hand Hygiene Immediately Prior To Procedure: Yes Site Disinfected-2% Chlorhex/70% Alcohol: Yes Procedure Site Completely Dry: Yes Entire Patient Draped in Sterile Fashion: Yes Intra-procedure: Sterile Gloves Used: Yes Cap, Mask, and Sterile Gown - Operators: Yes Sterile Field Maintained: Yes Cap and Mask Worn - All Personnel: Yes Post-procedure: Sterile Dressing Applied - Sterile Technique: Yes Dressing Dated And Timed: Yes Needle Passes: VA RN Makes 2 Or Fewer Needle Passes: 2 or fewer passes Physician Documentation Pre-Procedure: Procedure To Be Performed: New central line placement Indication: Other (Comment) (limited access) Line Priority: Routine Tip Confirmation: X-ray Consent Obtained: Other (Comment) (phone consent obtained with sister Levi Nevarez ) The patient and/or family have been provided education/training to minimize the risk of central line-associated bloodstream infections. Central Line Type: Central Catheter Type: PICC PICC Type: Solo PICC Central Line Details: Line Location: Right;Brachial Final Tip Location: Other (Comment) (CAJ with 3CG) Line Lumens (#): Triple Central Line Size: 5 Fr Line Coating: Non-antimicrobial coated Vessel Size: (0.57) Vein Depth (cm): (0.65) Line Trim Length: (37) Line External Length: 0 Line Securement Device: Statlock device Responsible Service / IR Details: Responsible Service: [facility] RN Lidocaine 1% - Route/Dose (cc's): Intradermal;2 Central Line Materials and Methods: Number of Attempts: 1 Number of Sites Attempted: 1 Number of Kits Used: 1 Location Device Used: Sherlock;Ultrasound;3CG (CXR for final tip placement) Central Line Operators: Number Of Operators: 1 First Taxation Inspector's Name: Amadou Cantu RN vat First Taxation Inspector's Title: Vascular buckle sewer Unless otherwise noted, there were no complications, no blood loss and no cultures obtained. AMADOU CANTU RN 07/02/2023 19:54 * Fransisca Fernández RN - 07/02/2023 1102 EDTAssociated Order(s): HEMODIALYSIS Dialysis Program Nursing Acute-Care Note Kt/V: 0.66 Net fluid removal 1L Access: Temporary Catheter, left IJ Access function: Lumens reversed Pre Post BP 126/88 140/89 Pulse 110 120 Temp 36.9c 36.7c Weight 81kg 80kg Method of weight: Bed Treatment Comments/Issues/concerns Mental Status Pre: intubated/sedated Mental Status Post: intubated/sedated Pain score: Pre: 0. Post: 0 Post dialysis system: Moderately clotted Arrived to patients bedside for 3.5hr HD treatment via left IJ non tunneled catheter. Unable to aspirate arterial lumen, lines reversed. BFR at 350, unable to achieve prescribed BFR r/t arterial pressures >-250. Patient repositioned q2hrs with help of staff. Increasing venous pressure during last 30 minutes of treatment, 100mL NS flush given, large visible clots, no improvement with venous pressure. Ended treatment 14 minutes early r/t clotting. Tolerated treatment well. Catheter flushed andcapped. Report given to Lupe ROMAN. * Rosa Nance RN - 06/30/2023 1346 EDT Cortrack Feeding Tube Placement Procedure Note Title of Procedure: Cortrack Feeding Tube Placement Date Performed: 06/30/2023 Time Performed: 1220 Performed by: Rosa Nance Indications and/or Provisional Diagnosis: Condition: The condition of the patient was Critical Consent: The patient/surrogate has consented after being informed of the risks, benefits and alternatives Ordered By: Dr. Denny Time Out: A time-out was completed prior to procedure verifying correct patient, procedure, site, positioning, and special equipment if applicable. Type of Anesthesia or Sedation: Pt intubated, sedated Procedure Technique/Description: Performed tube placement using the Cortrak EAS system2 X-Ray Confirmation: Yes Final Tube Position: Stomach Exposed Catheter Length (cm): 75 L nare Complications: EZEQUIEL originally inserted to 90cm at L nare- (previous EZEQUIEL inserted to 72cm) after securing with bridle Primary RN Bev noted EZEQUIEL tube curling back up into mouth and pulled back 75cm/resecured and XR obtained and final position in stomach ROSA NANCE RN 06/30/2023 13:46 * Jarrell Coats MD - 06/28/2023 2739 EDT [facility] Name: [facility] [address] : 1955 [place], [place] Date: 06/28/2023 Video-Electroencephalographic Monitoring Report Referring Physician: Love Zhou MD Study Number: [id number] Clinical Indication: A 68 year old male admitted with shock with seizure like movements. Video EEG requested to rule out seizures. Medications: Current Facility-Administered Medications: alteplase (CATHFLO ACTIVASE) injection 2 mg, 2 mg, intercatheter, PRN, Wandy Piper MD amino acids-protein hydrolysate (PRO SOURCE NOCARB) packet 30 mL, 30 mL, oral, DAILY, Khushi Young MD amino acids-protein hydrolysate (PRO SOURCE NOCARB) packet 90 mL, 90 mL, oral, TID, Khushi Young MD, 90 mL at 06/29/23 2127 amiodarone (PACERONE) tablet 400 mg, 400 mg, oral, DAILY, Davian Murrell MD aspirin chewable tablet 81 mg, 81 mg, oral, DAILY, Alec Rizo MD, 81 mg at 06/30/23 0821 cefTRIAXone (ROCEPHIN) 2,000 mg in sodium chloride (NS MBP) 50 mL IVPB, 2,000 mg, intravenous, DAILY, Khushi Young MD, 2,000 mg at 06/29/23 1714 citalopram (CELEXA) tablet 20 mg, 20 mg, oral, DAILY, Khushi Young MD, 20 mg at 06/30/23 0821 Dimethicone-Zinc Oxide 20-25 % spray,non-aerosol, , topical, BID, Charanjit Taylor MD, Given at 06/30/23 0821 fentaNYL citrate (PF) injection 50-75 mcg, 50-75 mcg, intravenous, Q1H PRN, Alec Rizo MD, 75 mcg at 06/30/23 0405 haloperidol lactate (HALDOL) injection 2 mg, 2 mg, intravenous, Q6H PRN, Kael Denny MD heparin 1,000 unit/mL injection 5,500 Units, 70 Units/kg (Adjusted), intravenous, PRN OR heparin 1,000 unit/mL injection 2,800 Units, 35 Units/kg (Adjusted), intravenous, PRN, Percy Teresa MD, 2,800 Units at 06/30/23 0417 heparin in 1/2 NS 25,000 unit/250 mL infusion, 25 Units/kg/hr (Adjusted), intravenous, CONTINUOUS, Mrogan Mccauley, Last Rate: 19.5 mL/hr at 06/30/23 0822, 25 Units/kg/hr at 06/30/23 0822 ipratropium-albuteroL (DUONEB) 0.5 mg-3 mg(2.5 mg base)/3 mL nebulizer solution 3 mL, 3 mL, nebulization, Q4H PRN, Roque Correa MD, 3 mL at 06/28/23 0814 lactulose (CHRONULAC) 20 gram/30 mL solution 30 mL, 30 mL, oral, Q4H PRN, Khushi Young MD lidocaine (PF) 10 mg/mL (1 %) injection 2 mg, 2 mg, intradermal, PRN, Alec Rizo MD magnesium sulfate 2 g in water 50 mL, 2 g, intravenous, PRN, Alec Rizo MD, 2 g at 06/29/23 0107 multivitamin (NEPHROVITE) 0.8 mg tablet 1 Tablet, 1 Tablet, oral, QHS, Khushi Young MD, 1 Tablet at 06/29/237 nutren 2.0, , per g tube, CONTINUOUS, Khushi Young MD, Last Rate: 20 mL/hr at 06/30/23 0600,Rate Verify at 06/30/23 0600 pantoprazole (PROTONIX) injection 40 mg, 40 mg, intravenous, DAILY, Alec Rizo MD, 40 mg at 06/30/23 0821 papain-alpha amylase-cellulase (CLOG ZAPPER) 2-5 mL, 2-5 mL, feeding tube, PRN, Khushi Young MD polyethylene glycol 3350 (MIRALAX) packet 17 g, 17 g, oral, Daily PRN, Morgan Mccauley propOFol (DIPRIVAN) 1000 mg in 100 mL infusion, 5-83 mcg/kg/min, intravenous, CONTINUOUS, Alec Rizo MD, Last Rate: 9.6 mL/hr at 06/30/23 0820, 20 mcg/kg/min at 06/30/23 0820 rifAXIMin (XIFAXAN) tablet 550 mg, 550 mg, oral, BID, Khushi Young MD, 550 mg at 06/30/23 0821 senna (SENOKOT) tablet 2 Tablet, 2 Tablet, oral, BID PRN OR sennosides (SENOKOT) syrup 17.6 mg,10 mL, per ng tube, BID PRN, Alec Rizo MD thiamine (VITAMIN B-1) 500 mg in sodium chloride (NS) 0.9 % 50 mL IVPB, 500 mg, intravenous, TID, Khushi Young MD, 500 mg at 06/29/232126 Technical Description: Continuous digital video-digital electroencephalographic monitoring is performed. Silver/silver chloride EEG electrodes are placed according to the International 10-20 system as well as anterior temporal electrodes, a CPz recording reference and FCz ground contract. An ECG channel is also monitored. Caregivers are encouraged to maintain an event diary and to press and Event Button in the event ofa seizure-like spell (Target Event). The entire EEG dataset is reviewed by the attending physician.No pain assessment for this procedure is necessary. Findings: 1. The monitoring period begins on 06/28/2023 at 23:31 and ends at 10:52, then resumes at 12:04 until 13:27 on 06/29/2023. 2. The patient remains intubated and on sedation with propofol. There is little change to the background activity. The background is near symmetric and more continuous though the quality declines over the course of the study due to poor electrode adherence over the occipital leads and then most of the right hemisphere. It is essentially composed of a predominant pattern of low to moderate amplitude delta and theta with a lesser degree of faster frequencies. There are epochs in which there is anamplification in the extent of the faster frequencies in a more generalized distribution. There areintermixed triphasic waveforms that appear symmetric and synchronous. Well defined sleep architecture is not recorded. 3. No seizures are recorded. Impression: Abnormal recording with evidence of moderately severe diffuse cerebral dysfunction thatis non-specific and in large part likely related to sedation effect though cannot exclude a contribution from more systemic co- morbidities. As the study evolves, interpretation of activity over the right hemisphere becomes more difficult as the electrodes have been pulled. No seizures have been recorded to date. Jarrell Coats MD ABPN Certified, Neurology and Clinical Neurophysiology * Teodoro Connolly RN - 06/28/2023 2341 EDT Cortrack Feeding Tube Placement Procedure Note Title of Procedure: Cortrack Feeding Tube Placement Date Performed: 06/28/2023 Time Performed: 23:41 Performed by: TEODORO CONNOLLY RN Consent: The patient/surrogate has consented after being informed of the risks, benefits and alternatives Ordered By: Malick STEVENS Time Out: A time-out was completed prior to procedure verifying correct patient, procedure, site, positioning, and special equipment if applicable. Type of Anesthesia or Sedation: Phenylephrine-lidocaine 0.25%-3% topical solution Procedure Technique/Description: Performed tube placement using the Cortrak EAS system2 X-Ray Confirmation: Yes Final Tube Position: Stomach Exposed Catheter Length (cm): 72 Complications: None TEODORO CONNOLLY RN 06/28/2023 23:41 * Jarrell Coats MD - 06/27/2023 2359 EDT [facility] Name: [facility] [address] : 1955 [place], [place] Date: 06/27/2023 Video-Electroencephalographic Monitoring Report Referring Physician: Love Zhou MD Study Number: [id number] Clinical Indication: A 68 year old male admitted with shock with seizure like movements. Video EEG requested to rule out seizures. Medications: Current Facility-Administered Medications: alteplase (CATHFLO ACTIVASE) injection 2 mg, 2 mg, intercatheter, PRN, Wandy Piper MD amino acids-protein hydrolysate (PRO SOURCE NOCARB) packet 60 mL, 60 mL, oral, TID, Charanjit Taylor MD, 60 mL at 06/28/23 0946 aspirin chewable tablet 81 mg, 81 mg, oral, DAILY, Alec Rizo MD, 81 mg at 06/28/23 0946 cefTRIAXone (ROCEPHIN) 2,000 mg in sodium chloride (NS MBP) 50 mL IVPB, 2,000 mg, intravenous, DAILY, Alec Rizo MD, 2,000 mg at 06/27/23 1717 citalopram (CELEXA) tablet 20 mg, 20 mg, oral, DAILY, Khushi Young MD, 20 mg at 06/28/23 0946 fentaNYL citrate (PF) injection 25-50 mcg, 25-50 mcg, intravenous, Q1H PRN, Wandy Piper MD, 50 mcg at 06/28/23 0845 heparin 1,000 unit/mL injection 2,400 Units, 30 Units/kg (Adjusted), intravenous, PRN, 2,400 Units at 06/27/23 0059 OR heparin 1,000 unit/mL injection 1,200 Units, 15 Units/kg (Adjusted), intravenous, PRN, Wandy Piper MD, 1,200 Units at 06/27/23 1319 heparin in 1/2 NS 25,000 unit/250 mL infusion, 21 Units/kg/hr (Adjusted), intravenous, CONTINUOUS, Roque Correa MD, Last Rate: 16.5 mL/hr at 06/28/23 1100, 21 Units/kg/hr at 06/28/23 1100 ipratropium-albuteroL (DUONEB) 0.5 mg-3 mg(2.5 mg base)/3 mL nebulizer solution 3 mL, 3 mL, nebulization, Q4H PRN, Roque Correa MD, 3 mL at 06/28/23 0814 lactulose (CHRONULAC) 20 gram/30 mL solution 30 mL, 30 mL, oral, Q4H PRN, Khushi Young MD lidocaine (PF) 10 mg/mL (1 %) injection 2 mg, 2 mg, intradermal, PRN, Alec Rizo MD magnesium sulfate 2 g in water 50 mL, 2 g, intravenous, PRN, Alec Rizo MD, 2 g at 06/28/23 0739 Multivitamins with minerals + ferrous gluconate (CENTRUM) oral solution 15 mL, 15 mL, feeding tube,DAILY, Khushi Young MD, 15 mL at 06/28/23 0946 pantoprazole (PROTONIX) injection 40 mg, 40 mg, intravenous, DAILY, Alec Rizo MD, 40 mg at 06/28/23 0946 papain-alpha amylase-cellulase (CLOG ZAPPER) 2-5 mL, 2-5 mL, feeding tube, PRN, Khushi Young MD peptamen intense VHP, , per g tube, CONTINUOUS, Charanjit Taylor MD, Last Rate: 50 mL/hr at 06/28/23 1100, Rate Verify at 06/28/23 1100 polyethylene glycol 3350 (MIRALAX) packet 17 g, 17 g, oral, DAILY, Alec Rizo MD, 17 g at 06/26/23 0911 propOFol (DIPRIVAN) 1000 mg in 100 mL infusion, 5-83 mcg/kg/min, intravenous, CONTINUOUS, Alec Rizo MD, Last Rate: 4.8 mL/hr at 06/28/23 1100, 10 mcg/kg/min at 06/28/23 1100 rifAXIMin (XIFAXAN) tablet 550 mg, 550 mg, oral, BID, Khushi Young MD, 550 mg at 06/28/23 0946 senna (SENOKOT) tablet 2 Tablet, 2 Tablet, oral, BID PRN OR sennosides (SENOKOT) syrup 17.6 mg,10 mL, per ng tube, BID PRN, Alec Rizo MD Technical Description: Continuous digital video-digital electroencephalographic monitoring is performed. Silver/silver chloride EEG electrodes are placed according to the International 10-20 system as well as anterior temporal electrodes, a CPz recording reference and FCz ground contract. An ECG channel is also monitored. Caregivers are encouraged to maintain an event diary and to press and Event Button in the event ofa seizure-like spell (Target Event). The entire EEG dataset is reviewed by the attending physician.No pain assessment for this procedure is necessary. Findings: 1. The monitoring period begins on 06/27/2023 at 23:31 and ends at 05:34 only to resume at 07:36 and ends at 23:30 on 06/28/2023. 2. The patient remains intubated and on sedation with propofol. The background is symmetric and more continuous though the quality declines over the course of the study due to poor electrode adherence over the occipital leads. It is essentially composed of a predominant pattern of low to moderate amplitude delta and theta with a lesser degree of faster frequencies. There are epochs in which thereis an amplification in the extent of the faster frequencies in a more generalized distribution. There are intermixed triphasic waveforms that appear symmetric and synchronous. Well defined sleep architecture is not recorded. 3. No seizures are recorded. Impression: Abnormal recording with evidence of moderately severe diffuse cerebral dysfunction thatis non-specific and in large part likely related to sedation effect though cannot exclude a contribution from more systemic co- morbidities. No seizures have been recorded to date. Jarrell Coats MD ABPN Certified, Neurology and Clinical Neurophysiology 11:28 06/28/2023 * Cuco Epps RN - 06/27/2023 1537 EDT CRRT Procedure Note Initiation or restart: Restart Access: Temporary LIJ CVC Changes made in prescription: Changed Bicarb to 28, was 25 on 06/26/23 Fluid goals: 50-100 ml hourly net loss Heparin: Yes, heparin per CRRT protocol, primary RN to manage heparin Plans for restart should system fail: No restart per Dr. Esmer Jaeger, will reassess in themorning. Final machine verification completed with MICU primary RN Xiomara CRRT treatment started at 1548 CUCO EPPS RN 06/27/2023 15:37 * Jarrell Coats MD - 06/26/2023 8109 EDT [facility] Name: [facility] [address] : 1955 [place], [place] Date: 06/26/2023 Video-Electroencephalographic Monitoring Report Referring Physician: Love Zhou MD Study Number: [id number] Clinical Indication: A 68 year old male admitted with shock with seizure like movements. Video EEG requested to rule out seizures. Medications: Current Facility-Administered Medications: alteplase (CATHFLO ACTIVASE) injection 2 mg, 2 mg, intercatheter, PRN, Wandy Piper MD amino acids-protein hydrolysate (PRO SOURCE NOCARB) packet 30 mL, 30 mL, oral, BID, Wandy Piper MD, 30 mL at 06/27/23 0840 aspirin chewable tablet 81 mg, 81 mg, oral, DAILY, Alec Rizo MD, 81 mg at 06/27/23 0959 cefTRIAXone (ROCEPHIN) 2,000 mg in sodium chloride (NS MBP) 50 mL IVPB, 2,000 mg, intravenous, DAILY, Alec Rizo MD citalopram (CELEXA) tablet 20 mg, 20 mg, oral, DAILY, Khushi Young MD, 20 mg at 06/27/23 0840 DOBUTamine (DOBUTREX) 500 mg in D5W 250 mL infusion, 5 mcg/kg/min, intravenous, CONTINUOUS, Wandy Piper MD, Last Rate: 12 mL/hr at 06/27/23 1100, 5 mcg/kg/min at 06/27/23 1100 fentaNYL citrate (PF) injection 25-50 mcg, 25-50 mcg, intravenous, Q1H PRN, Wandy Piper MD, 25 mcg at 06/27/23 0412 heparin 1,000 unit/mL injection 2,400 Units, 30 Units/kg (Adjusted), intravenous, PRN, 2,400 Units at 06/27/23 0059 OR heparin 1,000 unit/mL injection 1,200 Units, 15 Units/kg (Adjusted), intravenous, PRN, Wandy Piper MD heparin in 1/2 NS 25,000 unit/250 mL infusion, 19 Units/kg/hr (Adjusted), intravenous, CONTINUOUS, Grace Pimentel MD, Last Rate: 15 mL/hr at 06/27/23 1100, 19 Units/kg/hr at 06/27/23 1100 lidocaine (PF) 10 mg/mL (1 %) injection 2 mg, 2 mg, intradermal, PRN, Alec Rizo MD magnesium sulfate 2 g in water 50 mL, 2 g, intravenous, PRN, Alec Rizo MD, 2 g at 06/26/23 2236 Multivitamins with minerals + ferrous gluconate (CENTRUM) oral solution 15 mL, 15 mL, feeding tube,DAILY, Khushi Young MD, 15 mL at 06/27/23 0840 norepinephrine (LEVOPHED) 8 mg in NS 250 mL infusion, 0-40 mcg/min, intravenous, CONTINUOUS, Alec Rizo MD, IV Stopped at 06/27/23 1017 pantoprazole (PROTONIX) injection 40 mg, 40 mg, intravenous, DAILY, Alec Rizo MD, 40 mg at 06/27/23 0959 papain-alpha amylase-cellulase (CLOG ZAPPER) 2-5 mL, 2-5 mL, feeding tube, PRN, Khushi Young MD polyethylene glycol 3350 (MIRALAX) packet 17 g, 17 g, oral, DAILY, Alec Rizo MD, 17 g at 06/26/23 0911 promote, , per ng tube, CONTINUOUS, Wandy Piper MD, Last Rate: 50 mL/hr at 06/27/23 1100, Rate Verify at 06/27/23 1100 propOFol (DIPRIVAN) 1000 mg in 100 mL infusion, 5-83 mcg/kg/min, intravenous, CONTINUOUS, Alec Rizo MD, IV Stopped at 06/27/23 0945 senna (SENOKOT) tablet 2 Tablet, 2 Tablet, oral, BID PRN OR sennosides (SENOKOT) syrup 17.6 mg,10 mL, per ng tube, BID PRN, Alec Rizo MD Technical Description: Continuous digital video-digital electroencephalographic monitoring is performed. Silver/silver chloride EEG electrodes are placed according to the International 10-20 system as well as anterior temporal electrodes, a CPz recording reference and FCz ground contract. An ECG channel is also monitored. Caregivers are encouraged to maintain an event diary and to press and Event Button in the event ofa seizure-like spell (Target Event). The entire EEG dataset is reviewed by the attending physician.No pain assessment for this procedure is necessary. Findings: 1. The monitoring period begins on 06/26/2023 at 23:31 and ends on 06/27/2023 at 23:30. 2. The patient remains intubated and on sedation with propofol. The background is symmetric and more continuous. There is no sleep architecture and little reactivity or variability. It is essentiallycomposed of a predominant pattern of low to moderate amplitude delta and theta with a lesser degreeof faster frequencies. There are intermixed triphasic waveforms that appear symmetric and synchronous. 3. No seizures are recorded. Impression: Abnormal recording with evidence of moderately severe diffuse cerebral dysfunction thatis non-specific and in large part likely related to sedation effect though cannot exclude a contribution from more systemic co- morbidities. No seizures have been recorded to date. Jarrell Coats MD ABPN Certified, Neurology and Clinical Neurophysiology 11:13 06/27/2023 * Davian Murrell MD - 06/26/2023 1823 EDT Central Catheter Insertion Second Catheter This Session busher helper: Patient Location: M408/M408-01 Preliminary Data: Insertion Date: 06/26/23 Insertion Time: 1620 First Taxation Inspector: Davian Murrell RN/MA Documenting Procedure: Lisa Vivar RN Pre-procedure: Time Out / Final Moment Performed: Yes Hand Hygiene Immediately Prior To Procedure: Yes Site Disinfected-2% Chlorhex/70% Alcohol: Yes Procedure Site Completely Dry: Yes Entire Patient Draped in Sterile Fashion: Yes Intra-procedure: Sterile Gloves Used: Yes Cap, Mask, and Sterile Gown - Operators: Yes Sterile Field Maintained: Yes Cap and Mask Worn - All Personnel: Yes Post-procedure: Sterile Dressing Applied - Sterile Technique: Yes Dressing Dated And Timed: Yes Needle Passes: Resident/Fellow Makes 3 Passes or Less: Yes Physician Documentation: Pre-procedure: Procedure To Be Performed: New central line placement Indication: New indication Conditions Present: Other (Comment) (cardiogenic shock) Line Priority: Emergent Tip Confirmation: X-ray Follow-Up X-ray: Yes Consent Obtained: Emergency -Consent not obtained The patient and/or family have been provided education/training to minimize the risk of central line-associated bloodstream infections. Central Line Type: Central Catheter Type: Non-Tunneled Non-Tunneled Catheter: Introducer Central Line Details: Line Location: Right;Internal Jugular Line Lumens (#): Triple Central Line Size: 9 Fr Line Coating: Non-antimicrobial coated Line External Length: Hub Line Securement Device: Sutured Catheter Secured At (cm):: 18 Responsible Service / IR Details: Responsible Service: MICU Central Line Materials and Methods: Number of Attempts: 1 Number of Sites Attempted: 1 Number of Kits Used: 1 Location Device Used: Ultrasound Central Line Operators: Number of Operators: 3 First Taxation Inspector's Name: Davian Murrell First Taxation Inspector's Title: Resident Impregnating Machine Operator's Name: Roque Correa Impregnating Machine Operator's Title: Fellow Third Taxation Inspector's Name: Charanjit Taylor Third Taxation Inspector's Title: Attending Wedged at 65 and pulled back to 60 Unless otherwise noted, there were no complications, no blood loss and no cultures obtained. DAVIAN MURRELL MD 06/26/2023 18:58 Associated attestation - Charanjit Taylor MD - 06/27/2023 1139 EDT MICU ATTENDING ADDENDUM: Attestation statement: I was present during the entire course of this procedure of PA catheter placement, and central line placement. Real time US guidance was used to assess access site; vessel patency; concurrent real-time ultrasound needle entry, pre-access assessment of venous patency; and real-time visualization of needle passage to the venous lumen Access Site: RIJ Images saved, interpreted and uploaded to [employer], see report in Epic for further CPT 62288 Charanjit Taylor MD MICU Attending 06/27/2023 * Jarrell Coats MD - 06/25/2023 2211 EDTAssociated Order(s): EEG WITH PROLONGED BEDSIDE VIDEO MONITORING [facility] Name: [facility] [address] : 1955 [place], [place] Date: 06/25/2023 Video-Electroencephalographic Monitoring Report Referring Physician: Love Zhou MD Study Number: [id number] Clinical Indication: A 68 year old male admitted with shock with seizure like movements. Video EEG requested to rule out seizures. Medications: Current Facility-Administered Medications: alteplase (CATHFLO ACTIVASE) injection 2 mg, 2 mg, intercatheter, PRN, Wandy Piper MD aspirin EC tablet 81 mg, 81 mg, oral, DAILY, Khushi Young MD, 81 mg at 06/26/23 0911 cefTRIAXone (ROCEPHIN) 2,000 mg in sodium chloride (NS MBP) 50 mL IVPB, 2,000 mg, intravenous, DAILY, Alec Rizo MD citalopram (CELEXA) tablet 20 mg, 20 mg, oral, DAILY, Khushi Young MD, 20 mg at 06/26/23 0911 dextrose 50 % solution, , , , DOBUTamine (DOBUTREX) 500 mg in D5W 250 mL infusion, 5 mcg/kg/min, intravenous, CONTINUOUS, Alec Rizo MD, Last Rate: 12 mL/hr at 06/26/23 0900, 5 mcg/kg/min at 06/26/23 0900 fentaNYL citrate (PF) injection 25 mcg, 25 mcg, intravenous, Q4H, Khushi Young MD heparin 1,000 unit/mL injection 2,400 Units, 30 Units/kg (Adjusted), intravenous, PRN, 2,400 Units at 06/26/23 0556 OR heparin 1,000 unit/mL injection 1,200 Units, 15 Units/kg (Adjusted), intravenous, PRN, Wandy Piper MD heparin in /2 NS 25,000 unit/250 mL infusion, 13 Units/kg/hr (Adjusted), intravenous, CONTINUOUS, Wandy Piper MD, Last Rate: 10 mL/hr at 06/26/23 0900, 13 Units/kg/hr at 06/26/23 0900 iohexoL (OMNIPAQUE 350) solution 100 mL, 100 mL, intravenous, Once in imaging, Ruben Walker MD lidocaine (PF) 10 mg/mL (1 %) injection 2 mg, 2 mg, intradermal, PRN, Alec Rizo MD magnesium sulfate 2 g in water 50 mL, 2 g, intravenous, PRN, Alec Rizo MD Multivitamins with minerals + ferrous gluconate (CENTRUM) oral solution 15 mL, 15 mL, feeding tube,DAILY, Khushi Young MD, 15 mL at 06/26/23910 norepinephrine (LEVOPHED) 8 mg in NS 250 mL infusion, 0-40 mcg/min, intravenous, CONTINUOUS, Alec Rizo MD, Last Rate: 18.8 mL/hr at 06/26/23899, 10 mcg/min at 06/26/23899 pantoprazole (PROTONIX) tablet 40 mg, 40 mg, oral, DAILY, Khushi Young MD, 40 mg at papain-alpha amylase-cellulase (CLOG ZAPPER) 2-5 mL, 2-5 mL, feeding tube, PRN, Khushi Young MD polyethylene glycol 3350 (MIRALAX) packet 17 g, 17 g, oral, DAILY, Alec Rizo MD, 17 g at 06/26/23910 promote, , per g tube, CONTINUOUS, Khushi Young MD, Last Rate: 30 mL/hr at 06/26/23899, Rate Verify at 06/26/23899 propOFol (DIPRIVAN) 1000 mg in 100 mL infusion, 5-83 mcg/kg/min, intravenous, CONTINUOUS, Alec Rizo MD, Last Rate: 19.3 mL/hr at 06/26/23899, 40 mcg/kg/min at 06/26/23899 senna (SENOKOT) tablet 2 Tablet, 2 Tablet, oral, BID PRN OR sennosides (SENOKOT) syrup 17.6 mg,10 mL, per ng tube, BID PRN, Alec Rizo MD Technical Description: Continuous digital video-digital electroencephalographic monitoring is performed. Silver/silver chloride EEG electrodes are placed according to the International 10-20 system as well as anterior temporal electrodes, a CPz recording reference and FCz ground contract. An ECG channel is also monitored. Caregivers are encouraged to maintain an event diary and to press and Event Button in the event ofa seizure-like spell (Target Event). The entire EEG dataset is reviewed by the attending physician.No pain assessment for this procedure is necessary. Findings: 1. The monitoring period begins on 06/25/2023 at 23:28 and ends 23:30 on 06/26/2023. 2. The patient is intubated and on sedation with propofol. The background is symmetric and initially mostly discontinuous. There are bursts of 1 to 2 seconds of mild to moderate mixed frequencies interrupting a largely attenuated background every 3-5 seconds. There is no sleep architecture and no reactivity or variability. 3. No seizures are recorded. Impression: Abnormal recording with evidence of severe diffuse cerebral dysfunction that is non-specific and in large part likely related to sedation effect though cannot exclude a contribution from more systemic co-morbidities. No seizures have been recorded to date. Jarrell Coats MD ABPN Certified, Neurology and Clinical Neurophysiology * Khushi Young MD - 06/25/2023 1829 EDT Central Catheter Insertion First Catheter This Session busher helper: [place] [facility] [id number] Preliminary Data: Insertion Date: 06/25/23 Insertion Time: 1739 First Taxation Inspector: Dr.Sharma ROMAN/MA Documenting Procedure: Quita ROMAN Pre-procedure: Time Out / Final Moment Performed: Yes Hand Hygiene Immediately Prior To Procedure: Yes Site Disinfected-2% Chlorhex/70% Alcohol: Yes Procedure Site Completely Dry: Yes Entire Patient Draped in Sterile Fashion: Yes Intra-procedure: Sterile Gloves Used: Yes Cap, Mask, and Sterile Gown - Operators: Yes Sterile Field Maintained: Yes Cap and Mask Worn - All Personnel: Yes Post-procedure: Sterile Dressing Applied - Sterile Technique: Yes Dressing Dated And Timed: Yes Needle Passes: Resident/Fellow Makes 3 Passes or Less: Yes Physician Documentation Pre-Procedure: Procedure To Be Performed: New central line placement Indication: New indication Conditions Present: Other (Comment) (Dilaysis initiation) Line Priority: Emergent Tip Confirmation: X-ray Follow-Up X-ray: No Consent Obtained: Emergency -Consent not obtained The patient and/or family have been provided education/training to minimize the risk of central line-associated bloodstream infections. Central Line Type: Central Catheter Type: Non-Tunneled Non-Tunneled Catheter: Dialysis Central Line Details: Line Location: Internal Jugular;Left Line Lumens (#): Triple Central Line Size: 12 Fr Line Coating: Antimicrobial coated Line External Length: Hub Line Securement Device: Sutured Catheter Secured At (cm):: Other (Comment) (20cm) Responsible Service / IR Details: Responsible Service: MICU Central Line Materials and Methods: Number of Attempts: 1 Number of Sites Attempted: 1 Number of Kits Used: 1 Location Device Used: Ultrasound Central Line Operators: Number Of Operators: 4 First Taxation Inspector's Name: Khushi Young First Taxation Inspector's Title: Aircraft Pilot Impregnating Machine Operator's Name: Alec Rizo Impregnating Machine Operator's Title: Resident Third Taxation Inspector's Name: Roque Correa Third Taxation Inspector's Title: Fellow Fourth Taxation Inspector's Name: Charanjit Taylor Fourth Taxation Inspector's Title: Attending Unless otherwise noted, there were no complications, no blood loss and no cultures obtained. KHUSHI YOUNG MD 06/25/2023 18:30 Associated attestation - Charanjit Taylor MD - 06/25/2023 2001 EDT MICU ATTENDING ADDENDUM: Attestation statement: I was present during the entire course of this procedure. Real time US guidance was used to assess access site; vessel patency; concurrent real-time ultrasound needle entry, pre-access assessment of venous patency; and real-time visualization of needle passage to the venous lumen Access Site: [facility] Images saved, interpreted and uploaded to [employer], see report in Epic for further CPT 68946 Charanjit Taylor MD MICU Attending 06/25/2023 documented in this encounter Consult Notes * aJnet Van MD - 08/04/2023 0855 EDT Stroke Code Service Date: 08/04/2023 Reason for Stroke Code: R melodie Hobson is a 68 y.o. male with a PMHx of HFrEF, Afib, COPD admitted 07/10/2023 for mulitorgan failure 2/2 cardiogenic/conservative shock. Hospital course c/b hypotension, severe systolic HF,AHRF, shock liver who presents as a stroke code for RUE weakness. LKN 1999 on 08/03/2023. This morning while in the chair he was noted to have worsened weakness in his R arm and a possible facial weakness. NIHSS is 4 for facial asymmetry, RUE drift, BLE drift. Of note, he has AF but has had AC held in the setting of recurrent inguinal/thigh hematoma. When itwas restarted approximately a week ago he had recurrent bleeding and epistaxis. mRS: Moderately severe disability. Unable to attend to own bodily needs without assistance or unable to walk unassisted. Positive Personal Risk Factors: Personal risk factor of Hypertension?: Yes Personal risk factor of Afib/Aflutter?: Yes Personal risk factor of Structural heart disease?: Yes NIH Stroke Scale NIHSS Testing Interval: Baseline Interval Exam Date: 08/04/23 Interval Exam Time: 0830 1A. Level of Consciousness: Alert, Keenly responsive 1B. Ask Month and Age: Answers both questions correctly 1C. Blink Eyes & Squeeze Hands: Performs both tasks correctly 2. Best Gaze: Normal 3. Visual: No visual loss 4. Facial Palsy: Minor paralysis (flattened nasolabial fold, smile asymmetry) 5A. Motor - Left Arm: No drift for 10 seconds 5B. Motor - Right Arm: Drifts, but doesn't hit bed 6A. Motor - Left Leg: Drifts, but doesn't hit bed 6B. Motor - Right Leg: Drifts, but doesn't hit bed 7. Limb Ataxia: No ataxia 8. Sensory Loss: Normal, no sensory loss 9. Best Language: Normal, no aphasia 10. Dysarthria: Normal 11. Extinction And Inattention: No abnormality NIH Stroke Scale: 4 Review of Systems Focused as above History reviewed. No pertinent past medical history. History reviewed. No pertinent surgical history. Social History Tobacco Use Smoking status: Unknown Smokeless tobacco: Not on file Substance Use Topics Alcohol use: Not on file History reviewed. No pertinent family history. Allergies Allergen Reactions Clonidine Other (See Comments) Dry mouth Objective Vitals Temp: [37.3 ??C (99.1 ??F)-37.8 ??C (100.1 ??F)] , Heart Rate: --, Pulse: [107] , Resp: [18] , BP: (89-114)/(50-63) , SpO2: [96 %-99 %] , O2 Flow Rate (L/min): 0 l/min Numeric Pain Level (Scale 1-10): 10 Weight: Weight : 70.4 kg (155 lb 4.8 oz) Body mass index is 21.06 kg/m??. NEUROLOGIC EXAM Mental Status & Language Awake and alert, oriented to person, time. Follows single and multi-step commands. Fluent speech. Naming of high and low-frequency objects, repetition intact. Cranial Nerves II: Visual mckee full to confrontation. III, IV, : EOMI with smooth pursuit. Conjugate gaze. VII: Slight R facial weakness at rest VIII: Hearing intact IX, X: Mild dysarthria XI: Normal strength XII: Tongue midline Motor Normal tone and bulk. No abnormal motor movements. Holds both upper extremities against gravity for 10 seconds, R arm drifts down without significant pronation. Holds both lower extremities against gravity with drift bilaterally. Sensation Light touch: intact in distal extremities Double simultaneous stimulation intact though inconsistent at times. Cerebellar/Movement Function Finger-nose and heel sanchez reveal no dyssynergia or dysmetria. Labs I have personally reviewed Recent Labs 08/02/23 0544 WBC 10.33 RBC 3.01* HGB 9.2* HCT 28.9* MCV 96* MCH 30.6 MCHC 31.8* PLT 291 Recent Labs 08/02/23 0544 08/03/23 1209 08/04/23 0955 NA 139 < > 134* K 5.2* < > 4.3 CL 104 < > 101 CO2 21* < > 19* BUN 25 < > 29* CREATININE 1.79* < > 2.42* CALCIUM 9.6 < > 9.0 MG 1.6* -- -- < > = values in this interval not displayed. 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 Corresponding hyperattenuation with compatible with retained contrast within the developmental venous anomaly in the setting of patient recently having a contrast enhanced study 08/03/2023. No definite acute intracranial hemorrhage. A follow-up head CT head can be obtained to ensure resolution. CTA HEAD: No occlusion or severe stenosis of the major arterial vasculature of the head. CTA NECK: Moderate stenosis of the bilateral proximal ICAs. Focal severe stenosis of the left common carotid artery. STENOSIS REFERENCE NASCET CRITERIA: MILD: < 50% MODERATE: 50-69% SEVERE: 70-89% HAIRLINE/CRITICAL: 90-99% OCCLUDED: 100% There is a difference during the pulmonary resident report and the final report. 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 on 08/04/2023. I have personally reviewed the images and the above interpretation and agree with the findings. [id number] CT ANGIO ABDOMEN PELVIS Result Date: 08/04/2023 New soft tissue density anterior to the left common femoral artery, presumably representing a hematoma status post removal of the previously existing left superficial femoral artery catheter. No evidence of bleeding or pseudoaneurysm. No findings of venous obstruction of either lower extremity. Chronic degenerative arterial disease as described above. Cardiomegaly. [id number] US LOWER VENOUS DUPLEX Result Date: 08/03/2023 1. No sonographic evidence of deep venous thrombosis in either lower extremity. 2. Left groin hematomas have decreased in size compared to ultrasound from 07/25/2023 [id number] US SCROTUM WITH LIMITED DUPLEX Result Date: 07/31/2023 Findings/Impression: Right testicle: Arterial and venous Doppler waveforms and color flow are normal in the right testicle. Left testicle: Arterial and venous Doppler waveforms and color flow are normal in the left testicle. GRAYSCALE: Technique: Grayscale ultrasound of the scrotum was performed. Indication for Grayscale: L scrotal pain and swelling, possibly related to resolving L inner thigh hematoma; Findings: Right Testicle: The right testis measures 4.4 x 2.3 x 2.4 cm, for an estimated total testis volume of 12.8 mL. Homogeneous echogenicity. No intratesticular lesion. Right Epididymis: The right epididymal head measures 0.6 x 0.8 x 1.1 cm. Homogeneous echogenicity. Normal vascularity o n color Doppler. Left Testicle: The left testis measures 3.9 x 2.1 x 2.9 cm, for an estimated totaltestis volume of 12.4 mL. Homogeneous echogenicity. No intratesticular lesion. Left Epididymis: Theleft epididymal head measures 0.7 x 1.1 x 0.3 cm. Homogeneous echogenicity. Normal vascularity on color Doppler. Incidental note of small 4 mm epididymal cyst. Spermatic Cords: Straight bilaterally. Scrotal Sac: Trace left hydrocele. No varicocele present. Incidental note of scrotal monique on the left measuring 3 mm in diameter. Scrotal Skin: No skin thickening. IMPRESSION: 1. No intratesticular lesion or evidence of torsion. 2. Small left hydrocele. 3. Small left epididymal cyst. [id number] US EXTREMITY SOFT TISSUE Result Date: 07/25/2023 FINDINGS / IMPRESSION: * Hematoma in the left groin region measuring about 9.5 x 2.9 x 4.4 cm on the current exam compared to 7.6 x 3.3 x 4.6 cm on the previous exam, representing a modest overall increase in size. * Smaller adjacent hematoma also noted, deep to the aforementioned hematoma in the left groin, measuring 2.6 x 2.4 x 1.4 cm. * No flow demonstrated within the collections on Doppler interrogation, though CT angiography would be necessary to definitively exclude any residual or recurrent active extravasation. [id number] XR FEEDING TUBE PLACEMENT Result Date: 07/10/2023 Findings/Impression: Portable AP view centered over the lower chest upper abdomen demonstrates thatthe feeding tube tip projects over the gastric fundus. This is neither a complete view of the chestnor of the abdomen. If either view is needed, formal films are recommended. [id number] XR CHEST PORTABLE 1 VIEW Result Date: 07/10/2023 The Dobbhoff tube has been pulled back, into the midesophagus slightly inferior to the level of thecarina. The above findings were discussed with Dr. Snehal Coffey. [id number] US LOWER VENOUS DUPLEX Result Date: 07/07/2023 Right lower extremity imaged from the external iliac vein to the popliteal vein. Patient declined further exam. No sonographic evidence of deep venous thrombosis in the right lower extremity above the knee. [id number] US ABDOMEN LIMITED Result Date: 07/06/2023 Cholelithiasis. No evidence of cholecystitis. Right pleural effusion. [id number] XR CHEST PORTABLE 1 VIEW Result Date: 07/06/2023 Overall, there is no significant change from the prior exam. [id number] Assessment Derrick Hobson is a 68 y.o. male with a complicated PMHx discussed above who presents as a stroke code for onset of RUE weakness with a last known normal of 1999 on 08/03/2023. Initial NIHSS 5 formild dysarthria (appears baseline), facial asymmetry, RUE drift, bilateral lower extremity drift. CT shows new hyperattentuation in the R frontal lobe corresponding to known developmental venous anomaly. CTA without LVO or aneurysm. TNK not indicated as outside time window. Thrombectomy not offeredas no LVO. Etiology unclear, symptoms certainly may represent vascular event in the setting of holding his AC, can obtain MRI head w/o contrast to further characterize. Recommendations MRI head w/o contrast Additional Information for Stroke Stroke code: Last Known Well Time: 1999 Date: 08/03/23 [facility], NIHSS: 08/04/2023 16:00 NIHSS Criteria Test Interval Baseline Exam Date 08/04/2023 Exam Time 08:30 LOC 0 LOC Questions 0 LOC Commands 0 Best Gaze 0 Visual 0 Facial Palsy 1 Left Arm, Motor 0 Right Arm, Motor 1 Left Leg, Motor 1 Right Leg, Motor 1 Limb Ataxia 0 Sensory 0 Best Language 0 Dysarthria 0 Extinction/Inatten. 0 Total Score 4 t-PA Decision: JANET VAN MD 08/04/2023 16:53 Associated attestation - Kylee Brady MD - 08/04/20232039 EDT Attestation: I saw and examined the patient with Dr. Patel on 08/04/2023. I agree with the resident's findings and plans as documented except as modified below. RAPID LVO notification was received and CTA images were reviewed to assess for Large Vessel Occlusion. Kylee Brady MD Vascular Neurology Attending * Davian Ureña, WAYNE - 06/26/2023 0943 EDTAssociated Order(s): CONSULT NUTRITION Nutrition Assessment Note: Initial Visit Reason for Visit: Consult: enteral nutrition BACKGROUND DATA Derrick Hobson is a 68 y.o. male admitted for Cardiogenic shock ([facility]) w/ respiratory and renal failure requiring CRRT. PMH (meghan Taylor MD 06/25/23): Afib, COPD, hep C Subjective: Pt remains intubated and sedated. No visitors at bedside. Has trickle TF running at 30 mL/hr. RN reports propofol to remain the same. Current Nutrition Orders: NPO TF Rx: Promote at 30 mL/hr x 24 hrs *Delegate Diet Ordering to RD Propofol: 19.3 mL/hr = 510 kcals/day Enteral Access: 16 hungarian OGT placed on 06/25/23 Objective Physical Findings: Net IO Since Admission: -732.79 mL [06/26/23 0943] Digestive Systems: no BM yet this admission Dentition: Teeth: Missing teeth per flowsheets Edema: +1 sacral, RUE/LUE, +2/3 RLE/LLE Skin: WDL Allergies on file: Clonidine Temp: [35.6 ??C (96.1 ??F)-37.2 ??C (99 ??F)] MVE: 11.2 MAPs: 76 Anthropometrics: Height: 182.9 cm (72) BMI: Body mass index is 24.01 kg/m??. Weight change: no wt hx available Weights Filed This Admission 06/25/23 1340 Weight: 80.3 kg (177 lb) Wt Readings from Last 6 Encounters: 06/25/23 80.3 kg (177 lb) Pertinent Medications: Current Facility-Administered Medications Medication Route Frequency alteplase (CATHFLO ACTIVASE) injection 2 mg intercatheter PRN aspirin EC tablet 81 mg oral DAILY cefTRIAXone (ROCEPHIN) 2,000 mg in sodium chloride (NS MBP) 50 mL IVPB intravenous DAILY citalopram (CELEXA) tablet 20 mg oral DAILY dextrose 50 % solution DOBUTamine (DOBUTREX) 500 mg in D5W 250 mL infusion intravenous CONTINUOUS heparin 1,000 unit/mL injection 2,400 Units intravenous PRN Or heparin 1,000 unit/mL injection 1,200 Units intravenous PRN heparin in /2 NS 25,000 unit/250 mL infusion intravenous CONTINUOUS iohexoL (OMNIPAQUE 350) solution 100 mL intravenous Once in imaging lidocaine (PF) 10 mg/mL (1 %) injection 2 mg intradermal PRN magnesium sulfate 2 g in water 50 mL intravenous PRN Multivitamins with minerals + ferrous gluconate (CENTRUM) oral solution 15 mL feeding tube DAILY norepinephrine (LEVOPHED) 8 mg in NS 250 mL infusion intravenous CONTINUOUS pantoprazole (PROTONIX) tablet 40 mg oral DAILY papain-alpha amylase-cellulase (CLOG ZAPPER) 2-5 mL feeding tube PRN polyethylene glycol 3350 (MIRALAX) packet 17 g oral DAILY promote per g tube CONTINUOUS propOFol (DIPRIVAN) 1000 mg in 100 mL infusion intravenous CONTINUOUS senna (SENOKOT) tablet 2 Tablet oral BID PRN Or sennosides (SENOKOT) syrup 17.6 mg per ng tube BID PRN Pertinent Labs: Lab Results Component Value Date WBC 22.33 (H) 06/26/2023 RBC 3.72 (L) 06/26/2023 HGB 9.1 (L) 06/26/2023 HCT 27.6 (L) 06/26/2023 MCV 74 (L) 06/26/2023 MCH 24.5 (L) 06/26/2023 PLT 162 06/26/2023 NA 133 (L) 06/26/2023 K 4.5 06/26/2023 CL 103 06/26/2023 CO2 20 (L) 06/26/2023 BUN 22 06/26/2023 CREATININE 1.58 (H) 06/26/2023 CALCIUM 7.3 (L) 06/26/2023 MG 1.7 06/26/2023 PHOS 3.7 06/26/2023 Lab Results Component Value Date/Time GLUCOSEPOC 115 (H) 06/26/2023 05:49 GLUCOSEPOC 110 (H) 06/26/2023 01:09 GLUCOSEPOC 131 (H) 06/25/2023 21:17 GLUCOSEPOC 151 (H) 06/25/2023 19:37 GLUCOSEPOC 158 (H) 06/25/2023 18:27 Lab Results Component Value Date/Time ALT 3,381 (H) 06/26/2023 01:09 AST >15,000 (H) 06/26/2023 01:09 ALKPHOS 156 (H) 06/26/2023 01:09 TBIL 2.7 (H) 06/26/2023 01:09 Estimated Nutrition Needs: using 80.3 kg [place] 2003b = 1900 kcals/day MSJ x1.1-1.2 = 0011-5137 kcals/day 1.5-2 g protein/kg = 120-161 g protein/day on CRRT Fluids per primary team Estimated Nutrition Intake: NPO since admission ASSESSMENT: RD Malnutrition Assessment Not enough evidence to assess malnutrition at this time. Pt intubated and sedated on propofol requiring CRRT. Pt started on trickle tube feeds last night. Renal labs improving after correction and with CRRT. K and Phos WNL this morning. Will continue w/ current formula and can adjust as needed based on lab trends. Propofol currently providing 510 kcals per day at a 19.3 mL/hr rate. Pt will need a renal multivitamin while on dialysis/CRRT. Has yet to have a BM. Miralax is ordered and given. Nutrition Risk Level: High (1) MEDICAL NUTRITION THERAPY PLAN: Advance tube feeds when medically ready: Promote at 50 mL/hr continuously + 60 mL Prosource No Carb BID TF at goal provides: 1200 mL formula (1L free water), 1440 kcals (1950 kcals w/ propofol), and 135 g protein daily Provide Nephrovite renal multivitamin while pt is receiving dialysis Provide Centrum liquid multivitamin once off dialysis Continue Phos and Mg lab checks w/ daily labs Weight checks 2x per week if able Adjust bowel regimen as appropriate for bowel regularity DAVIAN UREÑA RD, CD, CNSC (Call PAS or use [employer] to page RD covering this unit) * Severino Dumont MD - 06/25/2023 1610 EDT NEPHROLOGY CONSULT NOTE Admit Date: 06/25/2023 Date of Service: 06/25/2023 REASON FOR CONSULT: Acute Kidney Injury Resistant hyperkalemia Metabolic acidosis Hypotension CONSULT REQUESTED BY: MICU ASSESSMENT: 68 y.o. male admitted with shock, cardiogenic vs septic, metabolic acidosis, respiratory failure requiring intubation and hypotension requiring pressors, JOS with oliguria and resistant hyperkalemia.MICU placed a HD catheter and consulted nephrology to start CRRT. Due to hemodynamic instability at this point CRRT is the dialysis of choice mainly for clearance and correction of electrolyte imbalances and acid base balance. RECOMMENDATIONS: CRRT (SLED) with BFL 200ml/min and DFL 300ml/min Will use K3.5 in dialyzate and tCO2 30 . These may have to be adjusted tomorrow as electrolytes correct. Adjust antibiotics and other medications to CRRT treatment HPI: 68 year old male with h/o of COPD, afib, hep C admitted with hypotension, respiratory failure requiring intubation, oliguric JOS with hyperkalemia K 8.0 resistant to medical treatment, currently 6.4.Currently on levophed. UOP minimal with only 199 cc over last few hours and has received 2000 cc of isotonic fluids Hyperkalemia was treated with calcium carbonate, insuli/dextrose, lokelma x 1, furosemide and bicarbonate without significant improvement Past medical history, Past surgical history, Current Medications, Recent Laboratory findings, Allergies, Social and Family History were all reviewed today thoroughly in the electronic medical recordsand discussed with the patient. OBJECTIVE: Temp: [35.6 ??C (96.1 ??F)-36.4 ??C (97.6 ??F)] , Pulse: [101] , Resp: [12-19] , BP: (79-125)/(61-82) , SpO2: [92 %-100 %] Intake/Output Summary (Last 24 hours) at 06/25/2023 1842 Last data filed at 06/25/2023 1800 Gross per 24 hour Intake 251.87 ml Output 199 ml Net 52.87 ml Glucose Readings: No results for input(s): GLUCOSEFINGE in the last 72 hours. Wt Readings from Last 5 Encounters: 06/25/23 80.3 kg (177 lb) General: intubated and sedated, temporary HD catheter CHEST: Clear breath sounds heard on both lung mckee. CVS: S1 S2 present, irregular rate and rhythm, ABDOMEN: Soft, non-distended, non-tender. Extremities: no edema of lower extremities bilaterally Data Review: Reviewed in PRISM, notable for the following: CBC: Lab Results Component Value Date WBC 21.54 (H) 06/25/2023 RBC 3.45 (L) 06/25/2023 HGB 8.4 (L) 06/25/2023 HCT 27.4 (L) 06/25/2023 MCV 79 (L) 06/25/2023 MCH 24.3 (L) 06/25/2023 MCHC 30.7 (L) 06/25/2023 PLT 158 06/25/2023 NEUTROABS 19.62 (H) 06/25/2023 Nephrology profile: Lab Results Component Value Date NA 126 (L) 06/25/2023 K 6.3 (HH) 06/25/2023 CL 92 (L) 06/25/2023 CO2 18 (L) 06/25/2023 BUN 44 (H) 06/25/2023 CREATININE 3.07 (H) 06/25/2023 CALCIUM 7.2 (L) 06/25/2023 PHOS 6.0 (H) 06/25/2023 LABALBU 2.3 (L) 06/25/2023 Iron: No results found for: IRON, FERRITIN, TRANSFERRIN, IBC, TIBC Urine Protein: Lab Results Component Value Date PROTEINUA 1+ (A) 06/25/2023 Urine Creatine: No results found for: UCREA Prealbumin: No results found for: PREALBUMIN Recent Labs 06/25/23 1413 06/25/23 1710 CREATININE 2.86* 3.07* Baseline creatinine: unknown Severino Dumont M.D, F.A.C.P [facility] [employer] Janitorial Maintenance Worker professor of exercise science, Charge Entry of Transplant Programs [facility] Ruben Charles MD [facility] at [address], [email or web address] * Sandra Sanchez DO - 06/25/2023 2923 EDT Fellow Consult Note Reason for Consult Cardiogenic shock Case Summary Derrick Hobson is a 68 y.o. male patient with a past medical history significant for: -HFrEF (previously thought to be around 40% EF) -COPD -Treated HCV w/o radiographic evidence of cirrhosis -Cocaine use disorder -Alcohol use disorder Who presents with acute hypoxic respiratory failure, lactic acidosis, shock liver, hyperkalemia, and acute renal failure. Cardiology is consulted for cardiogenic shock. Unfortunately, there are no helpful outside hospital records detailing patient's prior medical history. Additionally, I was unableto get in contact with patient's sister Tarah Coy for collateral history. Apparently, patient presented with severe epistaxis to [facility] on 06/19/23. He had recurrent bleeding along with a fever that prompted starting antibiotics with some concern for TSS from the rhino rocketplaced by ENT. He was noted to have uptrending INR and LFTs. He was noted on 06/23-06/24 to be cyanotic and lethargic. Rapid response was called and glcuose was noted to be 12 . He was given 2 amps of D50. He improved, but was noted to have a significantly elevated K of 7.9 and an elevated AST and ALT. Patient was noted to have progressive respiratory failure requiring BIPAP and hypotension requiring pressors. He was transferred here for further management. Pertinent labs personally reviewed by me: -WBC: 21.54, Hb: 8.4, Platelets: 158, Na: 126, K: 6.4, Cl: 93, CO2: 17, BUN: 43, Cr: 2.86, AST: >15k, ALT: 3106, T. Bili: 2.2 -Tn: 0.157 > 0.166, BNP: Pending Notable prior cardiac history: -Last EKG 06/25/23: SR> IVCD. Nonspecific ST-T wave changes. -Last TTE 06/25/23: LVEF 20%. HK to akinesis of the mid-apical inferoseptal wall, anteroseptal wall,and apex. RV severelyh dilated and reduced. Severe TR. IVC dilate.d -Last Stress test: None on file -Last LHC: None on file Review of Systems Complete ROS reviewed and negative except as listed above in HPI. Past Medical History Patient Active Problem List Diagnosis Hypertensive disorder Backache Asthma Alcohol abuse Smoking Obesity Neck pain Chronic pain Hepatitis C antibody test positive Left shoulder pain Cardiogenic shock (HCC-CMS) Acute hypoxemic respiratory failure (HCC-CMS) JOS (acute kidney injury) ([facility]) Lactic acidosis Encephalopathy Shock liver Coagulopathy ([facility]) Outpatient Medications Current Outpatient Medications Medication Instructions beclomethasone (QVAR) 80 mcg/Actuation inhaler 2 Puffs, 2 TIMES DAILY CALCIUM CARBONATE, PSW1920, (TUMS ORAL) 1-5 Tablets, PRN gabapentin (NEURONTIN) 300 mg tablet 3 Tablets, 3 TIMES DAILY ibuprofen (MOTRIN) 200 mg tablet 4 Tablets, 3 TIMES DAILY IPRATROPIUM/ALBUTEROL SULFATE (COMBIVENT INHL) 2 Puffs, EVERY 4 HOURS PRN lisinopriL (PRINIVIL) 20 mg, DAILY traMADol (ULTRAM) 50 mg, EVERY 6 HOURS PRN Allergies Allergies Allergen Reactions Clonidine Other (See Comments) Dry mouth Past Surgical History History reviewed. No pertinent surgical history. Family History History reviewed. No pertinent family history. Social History Social History Social History Narrative Not on file Physical Exam BP (!) 79/63 Temp 36.2 ??C (97.1 ??F) Resp 18 Ht 182.9 cm (72) Wt 80.3 kg (177 lb) Comment: Simultaneous filing. User may not have seen previous data. SpO2 100% BMI 24.01 kg/m?? Intake/Output Summary (Last 24 hours) at 06/25/2023 1756 Last data filed at 06/25/2023 1722 Gross per 24 hour Intake 188.85 ml Output 184 ml Net 4.85 ml General: Patient is in no acute distress. Neck: No thyromegaly. Unable to assess JVP Lungs: Good respiratory effort. Heart: Regular rate, normal rhythm. Abdomen: Non-distended Extremities: No clubbing cyanosis. No edema. Skin: Dry. Neuro: Nonfocal, appropriate affect. Labs Recent Labs 06/25/23 1413 WBC 21.54* HGB 8.4* HCT 27.4* MCV 79* PLT 158 Recent Labs 06/25/23 1413 06/25/23 1710 CREATININE 2.86* 3.07* BUN 43* 44* NA 126* 126* K 6.4* 6.3* CL 93* 92* CO2 17* 18* CALCIUM 7.4* 7.2* PHOS 6.0* -- Recent Labs 06/25/23 1413 PROTIME 41.9* INR 3.8* PTT 38* Recent Labs 06/25/23 1413 ALT 3,106* AST >15,000* ALKPHOS 106 TBIL 2.2* Recent Labs 06/25/23 1413 TROPONINI 0.157* No results for input(s): CHOL, TRIG, HDL, LDLBASE, CHOLHDL in the last 72 hours. No results found for: HGBA1C. Imaging & Other Studies Reviewed. Assessment 1. SCAI Stage C Cardiogenic Shock - Etiology is unclear, but is likely acute on chronic systolic heart failure. Largely adynamic troponin points against ACS at this time. The degree of chamber enlargement suggests a slower process. Lactic is improving with minimal intervention. Agree with panscan to assess for other etiologies of shock (septic cardiomyopathy, distributive shock from ANGELO, cocaine induced, occult infection). Patient's presentation does raise concern for compartment syndrome (hyperkalemia, disproportionate AST/ALT elevation), but CK of 250 points against that. Regarding MCS, I do not feel that Impella would be ideal (multiorgan failure along with profound coagulopathy). IABP does not appear to be needed at this time due to improving shock picture. Would continue dobutamine, norepinephrine, and CRRT along with trending shock labs. If patient is worsening, we can reevaluate. 2. AF with controlled ventricular response - Nothing to do right now. Anticoagulation will have to be addressed at some point. He is at high risk for stroke (possible apical thrombus + AF). This is complicated by his coagulopathy. See below discussion on coagulopathy. 3. Elevated troponin likely acute myocardial injury in the setting of above - Strong suspicion for underlying CAD (LAD territory) based on TTE done today. In the absence of dynamic troponin and ACS, no indication for urgent ICA at this time. This can be done at a later point during the hospitalization. 4. Acute renal failure likely multifactorial in the setting of cardiogenic shock and ATN - Agree with CRRT at this time. 5. Elevated LFTs in a hepatocellular pattern - Injury pattern seems classic for shock liver. If in doubt, can consider calculating an R factor or an ALT/LDH ratio. There is some documentation of HCV as well as varices. Given that the patient has acute liver failure, I would point to the AJG ACLF guidelines (PMID:[id number]). They recommend the utilization of TEG to guide transfusion requirements aswell as for prognostication. 6. Lactic acidosis 2/2 above - This is improving. Would continue to trend shock labs. Recommendations -Due to improving lactic and current coagulopathy, no indication for urgent MCS at this time. If clinical status is worsening, would reach out to the chute loader -Agree with CRRT for volume removal -Dobutamine and NE are reasonable choices at this time -Trend shock labs (SvO2, LFTs, lactic, CMP) q6h -Would keep NPO for now Plan of care to be discussed w/ Dr. Hartmann. Thank you for the consult and allowing us to participate in the care of this patient. Please page Cardiology w/ further questions. We will continue to follow while inpatient. SANDRA SANCHEZ Motion Study Technician, PGY-5 Associated attestation - Damon Veronica MD - 06/26/2023 1258 EDT I have seen and evaluated the patient. I agree with the assessment and plan as outlined by Dr. Sanchez. Patient with what appears to be an multiple co morbidities by review of outside admission records but there are only allusions to his prior cardiac history indicating moderately reduced LV function in 2021. This would be helpful if prior PCP/cardiology notes (prior echo, ischemic eval etc) were obtained. Appears he was on some GDMT by outside records. Appears initial presentation was possible related to sepsis from nasal packing with subsequent CS. Regardless on presentation here clinical picture consistent initially with cardiogenic shock. While echo here concerning for underlying ischemic CM but with severe biventricular dysfunction, presentation not consistent with ACS and unclear if there is a component of metabolic cardiomyopathy in setting of possible sepsis/toxic in setting of notes indicating prior cocaine use. Currently HD stable on dobutamine and levophed with downtrending lactate. Would be helpful for SGC placement if safe from coagulopathic standpoint to better define hemod ynamics as well as continuing shock labs out outlined below. For completeness please obtain TSH, HIV, Tox screen. Damon Veronica MD [facility] documented in this encounter Miscellaneous Notes * Plan of Care - Roxane Parikh RN - 08/12/2023 6852 EDT Alternative Level of Care Patient Progress Note ORIENTATION: person Isolation Needs: None 1:[address]? Yes/No Comment reason: No Mobility: Contact guard Activities participated in: ambulating to bathroom SHIFT UPDATE D: A/Ox2. C/o 10/10 left arm pain. Sitting up in recliner throught the night. C/O dysuria. More confused this am. My ride is coming at six. It's gotta be Sunday because I have to go to work. A: Hourly rounding and safety checks completed. Meds given as ordered. Contacted MD Louis regarding left arm pain and dysuria as well as new confusion. EKG ordered and obtained. Delirium protocol in reinforced. R: Pain managed with PRN oxy (see emar). Patient ambulated to BR multiple times this shift to urinate.Sitting up in recliner resting comfortably. Problem: Daily Care Plan Goals Goal: Care Plan Documentation Outcome: Met This Shift Flowsheets (Taken 08/11/2023 1900) Area of Focus: Safety Goal This Shift: free from falls or injury Problem: SKIN INTEGRITY Goal: Skin integrity will improve or be maintained Outcome: Met This Shift Problem: Pain: Goal: Pain level will decrease Outcome: Ongoing * Plan of Care - Roxane Parikh RN - 08/11/2023 0652 EDT D: A/ox2. CG assist to bathroom. VSS on RA. C/O 8/10 pain in bilateral feet. Awake reading a book throughout the night. Slept intermittently after scheduled and PRN medications. A: Hourly rounding, safety checks completed. Medications given as ordered. Notified MD Velez regarding foot pain and redness noted after applying petroleum ointment. Human Intelligence washed patients feet with soap and water. Applied diphenhydrAMINE-zinc acetate 2-0.1 % cream.Education provided regarding care plan, fall risk, and call larson use. R: Patient resting in recliner chair. Ordered breakfast. Reports pain is not managed well. I am goingto ask them to increase my dosage or something. Using call larson appropriately. Problem: Daily Care Plan Goals Goal: Care Plan Documentation Outcome: Met This Shift Flowsheets (Taken 08/10/2023 1900) Area of Focus: Safety Goal This Shift: patient will remain free from falls or injury Problem: High Fall Risk: Goal: Patient will Remain Free of Falls due to Confusion Outcome: Met This Shift Problem: SKIN INTEGRITY Goal: Skin integrity will improve or be maintained Outcome: Met This Shift Problem: Impaired Skin Integrity Goal: Signs of wound healing will improve Outcome: Met This Shift * Plan of Care - Alfredito Bocanegra RN - 08/10/2023 0108 EDT Problem: Safety: Description: Module scope: For the purpose of this module, the definition for restraint comes from the Medicare and Medicaid Programs; Hospital Conditions of Participation. A restraint is any manual,physical, or mechanical device, material, or equip ... Goal: Complications related to restraint use will be avoided or minimized Outcome: Ongoing Problem: High Fall Risk: Goal: Patient will Remain Free of Falls due to Altered Mobility Outcome: Ongoing Problem: Daily Care Plan Goals Goal: Care Plan Documentation Outcome: Ongoing Problem: PAIN Goal: Patient's pain/discomfort is manageable/tolerable Outcome: Ongoing Data: patient is alert and oriented. Patient complaints of general discomfort. Action: Medications given per eMAR. Safety maintained. Hourly rounds done. Response: Patient rested well through the night. Will continue to monitor. ALFREDITO BOCANEGRA RN 08/10/2023 1:16 * Plan of Care - Ruben Shah RN - 08/08/2023 1151 EDT .@[facility]@ 11:52-- Data: BP 110/75 (BP Cuff Location: Left arm, BP Patient Position: Sitting) Pulse 83 Temp 36.7 ??C (98.1 ??F) Resp 18 Ht 182.9 cm (72.01) Wt 70.4 kg (155 lb 4.8 oz) SpO2 97% BMI 21.06 kg/m?? Pt resting in chair for the day with legs elevated, continuing to re-enforce fluid restriction, PT skin is red to the area pt refusing barrier cream, wants to air it out today Action: Pt has +4 edema teds stockings placed on patient. PT educated about importance of skin treatment and barrier cream but refused treatement Response: resting in chair and pt has been moved to senior care status and will be moving to the pod at 1500 * Plan of Care - Miryam Melendez RN - 08/08/2023 0556 EDT Data: Assumed pt care at 1900. AOX3, q8 vss, c/o generalized pain, see MAR. No c/o chest pain, or shortness of breath reported during the shift, on RA. Continent of bowel and bladder, uses the bedside commode and urinal. Safety precaution maintained. Informed pt to call for assistance. Action: Education provided regarding the importance of calling before getting out of chair. Med given as ordered, clustered care to promote rest. Response: Resting, awake sitting in chair and refusing to go to bed, call light within reach, pt refused chair alarm. Will continue to monitor. MIRYAM MELENDEZ RN 08/08/2023 5:56 Problem: PAIN Goal: Patient's pain/discomfort is manageable/tolerable Outcome: Ongoing Problem: Safety: Description: Module scope: For the purpose of this module, the definition for restraint comes from the Medicare and Medicaid Programs; Hospital Conditions of Participation. A restraint is any manual,physical, or mechanical device, material, or equip ... Goal: Complications related to restraint use will be avoided or minimized Outcome: Ongoing Problem: SKIN INTEGRITY Goal: Skin integrity will improve or be maintained Outcome: Ongoing Problem: Infection: Goal: Signs and symptoms of infection will decrease Outcome: Ongoing * Plan of Care - Duncan Bond RN - 08/07/2023 1946 EDT Data: Assumed patient care at 0700. Patient is A&Ox3 but very forgetful. VSS on RA. Patient expressing feelings of depression about being in the hospital this long. Action: Medications administered per MAR. PRN Oxycodone x2. Patient encouraged to keep feet elevated. Pt Off unit and outside with staff x1 today. Response: No acute changes this shift. DUNCAN BOND RN 08/07/2023 19:47 DUNCAN BOND RN 08/07/2023 19:46 Problem: High Fall Risk: Goal: Patient Will Remain Free from Fall-Related Injury Outcome: Ongoing Problem: Cognitive: Goal: Will regain or maintain usual level of consciousness Outcome: Ongoing Problem: PAIN Goal: Patient's pain/discomfort is manageable/tolerable Outcome: Ongoing * Wound Care - Sheila Iglesias NP - 08/07/2023 1225 EDT Images from the original note were not included. Wound Care Follow up Admit Date: 06/25/2023 Date of Service: 08/07/23 Reason for Follow Up: Prior DTI Consulted by: Roxane Parikh RN HPI Derrick Hobson is a 68 y.o. male with limited medical records available but a PMH significant for AF, COPD, Hep C, who initially presented at OSH for epistaxis with a prolonged hospital course complicated by hypotension, new severe systolic heart failure, AHRF, electrolyte derangements, and oliguria, consistent with cardiogenic shock, shock liver, and acute kidney failure of uncertain etiology who was transferred to [facility] for initiation of dialysis. Complex hospitalization course with significant improvements in mental status and kidney function, with last HD session 07/05. Active titration of GDMT. TTE Limited 07/16 showed ischemic changes and reduced EF, will need an ischemic eval prior to DC. Will need [facility] given prolonged course. Assessment Greeted Patient on med-surg floor, patient standing while organizing table. Introduced wound care team and patient agreed to an exam. Previous deep tissue injury to sacrum has greatly improved. Skin has almost completely reepithelialized. Superficial partial thickness open areas remain along gluteal cleft. Recommend applying aquaphor BID to area. Waffle cushion in place in recliner, recommend patient continue to turn and reposition at least every 2 hours and PRN. Skin to sacrum will remain vulnerable even after skin closure is achieved. Please avoid friction and pressure to this area as much as possible to avoid reinjury. Wound care will not follow patient, please re-consult if needed. Recommendations DTI to sacrum - healing Clean with 3-in-1 wipes Apply Aquaphor to coccyx and sacral area BID and PRN Careful attention to this area as skin remains vulnerable to re-injury. Avoid friction and pressureto buttocks as much as possible Q2 turns Waffle cushion Disposable chux Wound Care will not follow this patient. Please contact us via SecureChat ([facility] Wound Care Team) or reconsult for further concern Sheila Iglesias INFUSION PHARMACIST, AGACNP-BC, CWCN-AP Certified Wound Care Nurse Practitioner * Plan of Care - Gerber Julien RN - 08/07/2023 0550 EDT Problem: Daily Care Plan Goals Goal: Care Plan Documentation Flowsheets (Taken 08/06/2023 0835 by Lj Chu RN) Area of Focus: Neuro Status Goal This Shift: Neurologically stable Data: Assumed care of patient after 2300. Patient was admitted as a transfer from [facility] for Epistaxis which advanced to Septic? Shock and MODS. He had AMS and was receiving dialysis until early July. He is currently alert and oriented but is noted to have some confusion when asked broader questions other than orientation level. Patient had complaints of pain and administered prn pain meds when available. Encouraged patient to sleep in bed and he declined and spent night in the recliner with his legs down on the floor. Patient up ad [place] to void in the urinal. He declined working with PT yesterday due to exhaustion. Action: Meds administered per may, hourly rounding performed and care clustered to promote rest. Response: Patient's feet noted to have increased edema this am. Plan is for patient to work with PTand d/c to [facility] once medically stable and bed is available Call larson remains within reach. Will ctm. GERBER JULIEN RN 08/07/2023 5:50 * Plan of Care - Amadou Tran RN - 08/06/2023 2107 EDT Problem: Daily Care Plan Goals Goal: Care Plan Documentation Flowsheets (Taken 08/06/2023 0895 by Lj Chu, ABEL) Area of Focus: Neuro Status Goal This Shift: Neurologically stable Data: Assumed care of pt at 1500. Pt is A&Ox3. C/o pain to scrotum. On RA. RUE remains weak at wrist. P IV bubbled during flush. Action: Blue slip placed for new P IV for IV lasix administration. Strict I/O. Care clustered to promote rest as pt was expressing he never has a quiet moment to himself. Call larson in reach. Hourly rounding completed. Pt independent in room. Using urinal and commode. PRN oxycodone administered as needed, see MAR. Encouraged pt to reposition weight in chair while sitting. Vaseline applied to coccyx and zinc spray applied to scrotum. Response: New IV placed by VAT. Pt tolerating independent ambulation in room. Pt ate 25% of dinner.See flowsheet for urine output. AMADOU TRAN RN 08/06/2023 21:07 * Plan of Care - Lj Chu RN - 08/06/2023 1239 EDT Problem: Safety: Goal: Will remain free from falls Outcome: Met This Shift Goal: Will remain free from infection Outcome: Met This Shift Problem: Pain: Goal: Pain level will decrease Outcome: Met This Shift Pt AOX 3. Complain of pain to scrotum. Rt hand weakness notes. +3 BLE edema. No acute events. Medicated per May. Condition stable * Plan of Care - Miryam Melendez RN - 08/06/2023 7999 EDT Problem: PAIN Goal: Patient's pain/discomfort is manageable/tolerable Outcome: Ongoing Problem: Safety: Goal: Will remain free from falls Outcome: Ongoing Data: Assumed pt care at 1900. AOX3, decreased BP reported to MD manual was also low, no fever during shift, c/o generalized pain, see MAR. No c/o chest pain, or shortness of breath reported during the shift, on RA. Continent of bowel and bladder, uses the bedside commode and urinal. Safety precaution maintained. Informed pt to call for assistance. Action: Education provided regarding the importance of calling before getting out of chair. Med given as ordered, clustered care to promote rest. Response: Resting, awake sitting in chair and refusing to go to bed, call light within reach, pt refused chair alarm. Will continue to monitor. MIRYAM MELENDEZ RN 08/06/2023 5:52 * Plan of Care - Lj Chu RN - 08/05/2023 1649 EDT Problem: Cognitive/ Neuro: Goal: Will regain or maintain usual level of consciousness Outcome: Met This Shift Goal: Mental status will return to base line Outcome: Met This Shift Goal: Ability to maintain clinical measurements within normal limits will improve Outcome: Met This Shift Patient neurologically stable * Plan of Care - Miryam Melendez RN - 08/05/2023 0540 EDT Problem: PAIN Goal: Patient's pain/discomfort is manageable/tolerable Outcome: Ongoing Problem: Safety: Goal: Will remain free from falls Outcome: Ongoing Problem: SKIN INTEGRITY Goal: Skin integrity will improve or be maintained Outcome: Ongoing Data: Assumed patient care at 1900, q4 neuro checks, q8 vss. MRI shows no acute intercranial abnormality . Therapeutic heparin in place, next UHF at 0600. Pt is alert and oriented x3, able to make needs known. Continent of bladder and bowel, uses the urinal and bedside commode. Pt started coughing this morning, increased HR and Increased temp, aware, orders received. Advised pt to call for assi stance. Action: Medication given as order, vital signs taken. Hourly rounding continues. Response: Resting in bed comfortable, Call light within reach. Bed in lowest position. Will continue to monitor. MIRYAM MELENDEZ RN 08/05/2023 5:40 * Plan of Care - Denise Garner RN - 08/04/2023 0535 EDT Problem: Daily Care Plan Goals Goal: Care Plan Documentation Flowsheets (Taken 08/03/2023 1945) Area of Focus: Circulatory Status Goal This Shift: VSS Data: Assumed care of pt at 1900. Patient Aox3 VSS on RA. Patient independent in room. C/o 15/10 pain. Patient forgetful of when he got medication, asking shortly after getting pain medication looking to see when he got it last, saying that it was hours before. Action: See eMAR for medications. Care clustered to promote rest. Frequent checks performed. Response: Patient resting in bed at time of note. RR WNL. NAD. Call larson within reach, able to makeneeds known. DENISE GARNER RN 08/04/2023 5:35 * Plan of Care - Lj Chu RN - 08/03/2023 1522 EDT Problem: HEMODYNAMIC STATUS Goal: Patient Has Stable VS & Fluid Balance Outcome: Met This Shift. Vitals stable Problem: PAIN Goal: Patient's pain/discomfort is manageable/tolerable Outcome: Ongoing. Patient voiced complain of pain and medicated with analgesics * Plan of Care - Denise Garner RN - 08/03/2023 0653 EDT Problem: Daily Care Plan Goals Goal: Care Plan Documentation Flowsheets (Taken 08/02/2023 2300) Area of Focus: Circulatory Status Goal This Shift: VSS Data: Assumed care of pt at 1900. Patient Aox3 VSS on RA. Patient wears CPAP at night while sleeping. Patient independent in room. Action: See eMAR for medications. Care clustered to promote rest. Frequent checks performed. Response: Patient resting in bed at time of note. RR WNL. NAD. Call larson within reach, able to makeneeds known. * Plan of Care - Flor Helms RN - 08/02/2023 1719 EDT Data: No acute changes this shift. Very pleasant, alert and oriented x3 today. Up ad [place] at the bedside. Ambulated down to the solarium today with walker and CG. Sitting up in his chair all day. Encouraged to keep his feet elevated for pitting edema. Mepilex to healing pu on coccyx. Oxy and tylenolgiven q4hr for left groin pain. Good po intake. Voiding without issue. VSS on room air. Action: Meds given per MAY. Hourly rounding completed. Safety maintained. Call larson within reach. Response: No new complaints this shift. Resting in his chair at this time. FLOR HELMS RN 08/02/2023 17:19 * Plan of Care - Paola Frye RN - 08/01/2023 1719 EDT Problem: High Fall Risk: Goal: Patient Will Remain Free from Fall-Related Injury Outcome: Ongoing Data: VSS, afebrile. Pt c/o 8/10 L sided scrotal pain tracking up to his left lower abd. Denies CP SOB. Good POs. Voiding independently with urinal. Calls appropriately. Action: medications per MAY. Started on bactrim. PRN oxycodone with good effect. Response: pt reports better pain control. Resting comfortably in room. Call larson within reach. PAOLA FRYE RN 08/01/2023 17:19 * Heart Failure Education - Hyun Rosa RN - 08/01/2023 1247 EDT Heart failure nurse clinician reviewed heart failure education with pt at the bedside. Please see Education tab for education provided and pt's response. Hyun Rosa RN, CHFN Heart Failure Nurse Clinician Secure Chat or pager #[phone] * Plan of Care - Mansoor Bautista RN - 07/31/2023 0940 EDT Problem: SKIN INTEGRITY Goal: Skin integrity will improve or be maintained Outcome: Ongoing Problem: High Fall Risk: Goal: Patient will Remain Free of Falls due to Dizziness/Vertigo Outcome: Ongoing Data: Assumed care pt sitting in recliner A/Ox3 on RA nad noted, RR wnl. Denies pain, SOB or discomfort. Pt is Assist x1 with walker for transfer and adls, cont B/B uses urinal and commode. All needsmet at this time. Action: Medications administered per MAR, hourly rounding maintained. X2 med brown bm reported and pt showered this shift. Pt c/o left scrotal pain MD ordered Scrotum US duplex, imaging completed- see results no new orders given atc Tylenol to manage pain. Response: No acute changes, VSS. Pt remains on RA nad noted, RR wnl, pt is resting comfortably in bed w/ belongings and call larson with in reach. Staff will continue to monitor and assess. * Plan of Care - Mansoor Bautista RN - 07/30/2023 1013 EDT Problem: High Fall Risk: Goal: Patient Will Remain Free from Fall-Related Injury Outcome: Ongoing Problem: HEMODYNAMIC STATUS Goal: Patient Has Stable VS & Fluid Balance Outcome: Ongoing Problem: SKIN INTEGRITY Goal: Skin integrity will improve or be maintained Outcome: Ongoing Data: Assumed care pt sitting in recliner A/Ox3 on RA nad noted, RR wnl. Denies pain, SOB or discomfort. Pt is Assist x1 with walker for transfer and adls, cont B/B uses urinal and commode. All needsmet at this time. Action: Medications administered per MAR, hourly rounding maintained. X1 small brown bm, PICC dressing changed. Pt am Mag 1.4-replaced w/ 4mg Mag IV pt tolerated well. Pt ambulated w/ PT and tolerated well. C/o Headache not relieved by Tylenol, restarted pt PI[employer]URE [employer] Topamax 50mg bid- recheck effective. Response: No acute changes, VSS. RR wnl, pt is resting comfortably in recliner w/ belongings and call larson with in reach. Staff will continue to monitor and assess. * Plan of Care - Mansoor Bautista RN - 07/29/2023 1518 EDT Problem: Safety: Description: Module scope: For the purpose of this module, the definition for restraint comes from the Medicare and Medicaid Programs; Hospital Conditions of Participation. A restraint is any manual,physical, or mechanical device, material, or equip ... Goal: Complications related to restraint use will be avoided or minimized Outcome: Ongoing Data: Assumed care pt sitting in recliner A/Ox3 on RA nad noted, RR wnl. Denies pain, SOB or discomfort. Pt is Assist x1 with walker for transfer and adls, cont B/B uses urinal and commode. All needsmet at this time. Action: Medications administered per MAR, hourly rounding maintained. X1 bm reported this shift, and Venofer 500mg IV currently infusing pt tolerating well. Pt c/o nausea no vomiting, PRN promethazine administered- recheck effective. Response: No acute changes, VSS. Pt is resting comfortably in recliner w/ belongings and call larson with in reach. Staff will continue to monitor and assess. * Plan of Care - Cheri Cooney RN - 07/29/2023 0350 EDT Problem: Daily Care Plan Goals Goal: Care Plan Documentation Outcome: Met This Shift Flowsheets (Taken 07/28/20232021) Area of Focus: Safety Goal This Shift: Patient will remain safe and free from falls this shift Data: HOD#34-admitted for cardiogenic/distributive shock, JOS. Planning for ARAMIS upon discharge. SubQ heparin scheduled q8hrs for inguinal hematoma. Nausea+, compazine given x1 per MAR. Abdominal/hematoma/CEJA pain rated 7/10 scheduled pain medications given per MAY. Patient is Aox3, BP soft (asymptomatic), on RA, afebrile, continent x2 (BM 07/27), 1A with FWW OOB. Action: Shift assessment complete. Medications administered per MAY. Daily wound care complete. Hourly rounding complete. Q2 checks complete. Response: Patient is resting in bed, call light is within reach, able to make needs known. CHERI COONEY RN 07/29/2023 3:50 * Plan of Care - Gisell Colvin RN - 07/28/2023 1733 EDT Problem: High Fall Risk: Goal: Patient Will Remain Free from Fall-Related Injury Outcome: Ongoing Fall prevention measures maintained * Plan of Care - Mansoor Bautista RN - 07/28/2023 1126 EDT Problem: High Fall Risk: Goal: Patient Will Remain Free from Fall-Related Injury Outcome: Ongoing Problem: Impaired Skin Integrity Goal: Signs of wound healing will improve Outcome: Ongoing Data: Assumed care pt sitting in recliner A/Ox3 on RA nad noted, RR wnl. Denies pain, SOB or discomfort. Pt is Assist x1 with walker for transfer and adls, cont B/B uses urinal and commode. All needsmet at this time. Action: Medications administered per MAR, hourly rounding maintained. Response: No acute changes, VSS. Pt is resting comfortably in recliner w/ belongings and call larson with in reach. Staff will continue to monitor and assess. * Plan of Care - Brigid Gaytan RN - 07/28/2023 0339 EDT Problem: Daily Care Plan Goals Goal: Care Plan Documentation Outcome: Ongoing Flowsheets (Taken 07/27/20231951) Area of Focus: Sleep Goal This Shift: promote adequate rest Problem: SKIN INTEGRITY Goal: Skin integrity will improve or be maintained Outcome: Ongoing Problem: High Fall Risk: Goal: Patient will Remain Free of Falls due to Altered Mobility Outcome: Ongoing Data: Assumed care at 1900 pt A&Ox 3. Complaints of pain, prn pain medication given. Assist x1 with walker, uses the urinal. Breathing even and non labored on room air. Safety measures in place. Action: Hourly rounding, medications given per EMAR. Educated pt with plan of care, call larson with in reach, bed alarm on for safety. Cluster care to promote rest. Response: No acute changes, VSS. Resting comfortably in bed . Belongings and call larson with in reach . BRIGID GAYTAN RN 07/28/2023 3:40 * Plan of Care - Karen Lopes RN - 07/26/2023 1256 EDT Problem: Daily Care Plan Goals Goal: Care Plan Documentation Outcome: Ongoing Flowsheets (Taken 07/26/2023 0832) Area of Focus: Circulatory Status Goal This Shift: orthostatics will be WNL Data: pt admitted for cardiogenic shock and has stable R. Groin hematoma. Pt reports feeling dizzy when sitting up for long in recliner and when ambulating. MD requesting orthostatic VS to be done today. Action: obtained orthostatic VS w/ PT--MD made aware of results. Medicated pt per eMAR and encouraged adequate PO intake. Assisted pt to ambulate and reposition. Response: pt was able to work w/ PT and ambulate in hallway ~100ft, CG/assist using FWW. Pt felt dizzy/lightheaded and needed to be wheeled back in WC to room. Pt ate all meals in recliner. [facility] Addendum: recommending apply TEDs and abdominal binder--pt refusing, says he wants to let his feet breathe and doesn't need any interventions. Pt reports the dizziness gets better after sitting up for longer. Pt still hoping to shower tonight when dizziness subsides. KAREN LOPES RN 07/26/2023 12:56 * Plan of Care - Lj Chu RN - 07/25/20231818 EDT Problem: HEMODYNAMIC STATUS Goal: Patient Has Stable VS & Fluid Balance 07/25/20231818 by Lj Chu RN Outcome: Met This Shift Pt AOX3. BP soft ,pt asymptomatic. Dr aware. Swelling noted to Lt groin, ultrasound showed hematoma. A-fib on tele * Plan of Care - Rashi Emmanuel RN - 07/25/2023 0436 EDT Images from the original note were not included. Problem: Daily Care Plan Goals Goal: Care Plan Documentation Outcome: Ongoing Flowsheets (Taken 07/24/20232049) Area of Focus: Circulatory Status Goal This Shift: Monitor blood pressures Data: Assumed care at 1900. Aox3, forgetful. Pleasant. Action: Medication given per MAY. Blood pressure noted to be in 80's systolic, however this was taken while pt was laying on his right side. When pt was asked to lay on back and BP rechecked, SBP [id number]'s. Clustered care to promote rest. Response: Pt resting in bed. No acute changes this shift. Addendum 0630: RN noted large (about 11cms long and 6cm wide) firm lump on left side of groin. MD notified. Skin marked to track size. Pt states it hurts a little when pressed but otherwise is not painful. RASHI EMMANUEL RN 07/25/2023 4:36 * Plan of Care - Dago Bernard RN - 07/24/2023 0643 EDT Problem: High Fall Risk: Goal: Patient will Remain Free of Falls due to Altered Mobility Outcome: Ongoing Problem: Cardiac: Goal: Ability to maintain clinical measurements within defined limits will improve Outcome: Ongoing Problem: SKIN INTEGRITY Goal: Skin integrity will improve or be maintained Outcome: Ongoing Problem: HEMODYNAMIC STATUS Goal: Patient Has Stable VS & Fluid Balance Outcome: Ongoing Data: AAOx 2-3. RA. Incontinent of bowels. Uses urinal at bedside. X1 person assist stand and pivotOOB. C/o pain in abdomen. Able to make needs known Action: Medications given per eMAR. 1x dose tums given. Incontinence are. Wound care. Care clustered to promote rest. Repositions himself independently in bed. Hourly safety checks. Call larson within reach. Bed alarm activated. Response: Resting comfortably throughout shift. VSS. No acute distress. DAGO BERNARD RN 07/24/2023 0643 * Plan of Care - Lj Chu RN - 07/23/2023 1843 EDT Problem: HEMODYNAMIC STATUS Goal: Patient Has Stable VS & Fluid Balance Outcome: Met This Shift patient hemodynamically stable * Plan of Care - Dago Bernard RN - 07/23/2023 0547 EDT Problem: High Fall Risk: Goal: Patient will Remain Free of Falls due to Altered Mobility Outcome: Ongoing Problem: Impaired Skin Integrity Goal: Signs of wound healing will improve Outcome: Ongoing Data: AAOx 2-3. Disoriented to situation at times. RA. Incontinent of bowels. Uses urinal at the bedside. C/o of pain in both legs. Able to make needs known. Action: Medications given per eMAR. Care clustered to promote rest. Repositions himself independently in bed. Hourly safety checks. Call larson within reach. Bed alarm activated. Response: Resting comfortably in bed throughout the shift. VSS. No acute distress. DAGO BERNARD RN 07/23/2023 0547 * Plan of Care - Dago Bernard RN - 07/22/2023 0521 EDT Problem: High Fall Risk: Goal: Patient will Remain Free of Falls due to Altered Mobility Outcome: Ongoing Problem: Cardiac: Goal: Ability to maintain clinical measurements within defined limits will improve Outcome: Ongoing Problem: SKIN INTEGRITY Goal: Skin integrity will improve or be maintained Outcome: Ongoing Problem: HEMODYNAMIC STATUS Goal: Patient Has Stable VS & Fluid Balance Outcome: Ongoing Data: Patient is alert and oriented x 2. RA. Incontinent of bowels. Uses urinal at the bedside. Able to make needs known. C/o of right sided chest pain this shift that went away on its own. Action: Medications given per eMAR. Stat EKG done for chest pain. BP low earlier in the shift, 84/58, and recovered on its own. Care clustered to promote rest. Pt repositions himself in bed. Hourly safety checks. Call larson within reach. Bed alarm activated. Response: Appears comfortable in bed. VSS. No acute distress. DAGO BERNARD RN 07/22/2023 0521 * Plan of Care - Dominique Nevarez RN - 07/21/2023 0422 EDT Problem: Cardiac: Goal: Ability to maintain clinical measurements within defined limits will improve Outcome: Ongoing Data: Pt is alert and oriented x2, incontinent of bowel and continent of bladder, pt will use urinal at the bedside. Pt had 2 bowel movements during this shift. Vitals are stable. Action: Assumed care at 1900. Hourly rounding done, q2 turns, pt received meds, see the MAR, pt assessed and v/s completed. Lab drawn per provider's order. Bed alarm in place, and care clustered to promote rest. Response: Pt had adequate sleep during this shift. Call larson within reach and pt can make needs known. DOMINIQUE NEVAREZ RN 07/21/2023 4:24 * Plan of Care - Amaury Lamb RN - 07/20/2023 1328 EDT Problem: Daily Care Plan Goals Goal: Care Plan Documentation Flowsheets (Taken 07/20/2023 0900) Area of Focus: Circulatory Status Goal This Shift: MAP > 60 Data: A&OX3. Continent of urine. Incontinent of stool. 1-2 assist with ambulation. Hypotensive yesterday, losartan discontinued. BP this morning 110/72. Calls appropriately, able to make needs known. Action: Assumed care at 0700. Hourly rounding. Medicated per MAR. At 10:42 Rapid Response Initiatedd/t BP of 69/43 with a MAP of 49. 500 mL LR bolus and telemetry initiated (See rapid response note). Second bolus 500 mL LR given at 1530 for MAP > 60 per provider order. Bed in lowest position, alarm on, call larson in reach. Response: Patient MAP > 60 since second bolus. Patient has good mentation and can converse with staff. Eating more food for dinner and drinking fluids. Patient remained safe and free of injury this shift. AMAURY LAMB RN 07/20/2023 13:29 * Plan of Care - Dominique Nevarez RN - 07/20/2023 0437 EDT Problem: Respiratory: Goal: Ability to maintain a clear airway will improve Outcome: Ongoing Problem: Pressure Ulcer Prevention Goal: Absence Of Pressure Ulcer Outcome: Ongoing Problem: Impaired Skin Integrity Goal: Signs of wound healing will improve Outcome: Ongoing Data: Assumed care at 1900. Pt is alert and oriented x2. Pt is incontinent of bowel, and uses urinal by the bedside. Action: Hourly rounding done, q2 turns, pt received meds, see the MAR, pt assessed and v/s completed. Lab drawn per provider's order. Bed alarm in place, and care clustered to promote rest. Response: Patient is resting in bed, call larson within reach, and pt will make needs known. DOMINIQUE NEVAREZ RN 07/20/2023 4:37 * Plan of Care - Paola Frye RN - 07/19/2023 1137 EDT Problem: Cardiac: Goal: Ability to maintain clinical measurements within defined limits will improve Outcome: Ongoing Problem: HEMODYNAMIC STATUS Goal: Patient Has Stable VS & Fluid Balance Outcome: Ongoing Data: VSS. Pt c/o nausea with ambulation. Denies pain. Good POs. Using urinal independently. Calls appropriately. Stress test done this morning with no issues. Action: medications per MAR. Positive orthostatic vitals; standing BP 59/43, HR 52. Pt symptomatic,c/o nausea and dizziness. MD notified. No new orders. Pt's MAP in 50's this afternoon, asymptomatic, while in chair. MD notified. 500ml LR bolus given with good effect. Repeat bp 100/67. Encouraging POs. Response: pt back in bed, vitals stable. Denies nausea. Call larson within reach. PAOLA FRYE RN 07/19/2023 11:37 * Plan of Care - Paola Frye RN - 07/18/2023 1835 EDT Problem: High Fall Risk: Goal: Patient will Remain Free of Falls due to Altered Mobility Outcome: Ongoing Data: VSS, afebrile. A&Ox person place. Less confusion today. Denies pain. Eating/drinking. Up to chair for most of shift. Using urinal independently. Action: medications per MAR. Encouraging POs. Hourly rounds, care clustered. Response: pt resting comfortably in room, call larson within reach. PAOLA FRYE RN 07/18/2023 18:36 * Wound Care - Nakul Wong RN - 07/18/2023 1245 EDT Images from the original note were not included. Wound Care Follow up Admit Date: 06/25/2023 Date of Service: 07/18/23 Reason for Follow Up: Prior DTI Consulted by: ABEL Staton Derrick Hobson is a 68 y.o. male with limited medical records available but a PMH significant for AF, COPD, Hep C, who initially presented at OSH for epistaxis with a prolonged hospital course complicated by hypotension, new severe systolic heart failure, AHRF, electrolyte derangements, and oliguria, consistent with cardiogenic shock, shock liver, and acute kidney failure of uncertain etiology who was transferred to [facility] for initiation of dialysis. Complex hospitalization course with significant improvements in mental status and kidney function, with last HD session 07/05. Active titration of GDMT. TTE Limited 07/16 showed ischemic changes and reduced EF, will need an ischemic eval prior to DC. Will need ARAMIS given prolonged course. Assessment Greeted Patient on med-surg floor and he agreed to an exam with the Wound Care team. RN in room having just washed Patient after an incontinence episode of stool. Rolled Patient to right side and removed mepilex dressing. Wound has no exudate, and has epithelial layer on DTI sites, skin is pink and blanching. Cleaned skin with wet wipes and applied aquaphor to sacrum. Will discontinue triad paste as the skin can now be moisturized and does not need a drying/debriding agent at this time. Applied new mepilex to sacrum. Recommendations Discontinue the triad paste Wound Care to Sacrum Aquaphor to coccyx and sacral area Mepliex sacral border dressing to sacrum Wound Care will continue to follow this patient. Please contact us via SecureChat ([facility] Care[facility]) or reconsult for further concern. NAKUL WONG RN, BSN, [facility] 07/18/2023 12:47 * Plan of Care - Paola Frye RN - 07/17/2023 1155 EDT Problem: Safety: Description: Module scope: For the purpose of this module, the definition for restraint comes from the Medicare and Medicaid Programs; Hospital Conditions of Participation. A restraint is any manual,physical, or mechanical device, material, or equip ... Goal: Complications related to restraint use will be avoided or minimized Outcome: Ongoing Problem: Impaired Skin Integrity Goal: Signs of wound healing will improve Outcome: Ongoing Data: VSS, afebrile. A&Ox person and place. Pt occasionally confused/forgetful, able to be redirected. Following commands. C/o pain in L thigh, where hematoma is. Taking pills whole with thin liquids. Independent with urinal, incontinent of stool. Action: medications per MAY. Lido patch applied to L thigh with some effect. Echo done at bedside with no issues. OOB with sarasteady to chair for a little this afternoon. Encouraging POs. VM d/c'd. Hourly rounds. Bed alarm for safety. Response: pt resting comfortably in room. Call larson within reach. PAOLA FRYE RN 07/17/2023 11:55 * Plan of Care - Rebecca Ruiz RN - 07/16/2023 1936 EDT Follows commands, and pleasant with interactions. No observations of patient being impulsive throughout the shift. Able to transfer with two people using ISAC steady to bathroom. Amenable to turning side to side to alleviate pressure from saccrum/ buttocks pressure injury. Decreased appetite due dysphagia diet being unappealing to him. Favors cream of wheat, vanilla yogurt, and pineapple juice. Problem: Respiratory: Goal: Ability to maintain a clear airway will improve Outcome: Ongoing Problem: SKIN INTEGRITY Goal: Skin integrity will improve or be maintained Outcome: Ongoing Problem: High Fall Risk: Goal: Patient will Remain Free of Falls due to Confusion Outcome: Ongoing * Plan of Care - Alfredito Bocanegra RN - 07/16/2023 0312 EDT Problem: Safety: Description: Module scope: For the purpose of this module, the definition for restraint comes from the Medicare and Medicaid Programs; Hospital Conditions of Participation. A restraint is any manual,physical, or mechanical device, material, or equip ... Goal: Complications related to restraint use will be avoided or minimized Outcome: Ongoing Problem: Daily Care Plan Goals Goal: Care Plan Documentation Data: Patient alert but with intermittent confusion. Patient on video monitor. Action: Safety maintained. Hourly rounds done. Response: No agitation noted through the night. Will continue to monitor. ALFREDITO BOCANEGRA RN 07/16/2023 3:13 Outcome: Ongoing * Plan of Care - Maryjane Biggs RN - 07/15/2023 1838 EDT Problem: Daily Care Plan Goals Goal: Care Plan Documentation Outcome: Ongoing Problem: SKIN INTEGRITY Goal: Skin integrity will improve or be maintained Outcome: Ongoing Problem: HEMODYNAMIC STATUS Goal: Patient Has Stable VS & Fluid Balance Outcome: Ongoing Data: Assumed pt care at 0700. 1:1 constant observer at bedside. Pt A&O to self. Verbal, slurred speech, and follows commands. Incontinent of stool, multiple BMs. Action: VSS on RA. Meds given per emar. NG tube and alston discontinued 1430. Pt was able to void inurinal with no concerns. Giselle care provided. Bed pad changed. Turned and repositioned q2hrs. Kept pt comfortable. Response: Resting in bed at this time. Call larson within reach. 1:1 at bedside. * Plan of Care - Alfredito Bocanegra RN - 07/15/2023 0518 EDT Problem: Safety: Description: Module scope: For the purpose of this module, the definition for restraint comes from the Medicare and Medicaid Programs; Hospital Conditions of Participation. A restraint is any manual,physical, or mechanical device, material, or equip ... Goal: Complications related to restraint use will be avoided or minimized Outcome: Ongoing Problem: Daily Care Plan Goals Goal: Care Plan Documentation Outcome: Ongoing Data: Patient alert but with intermittent confusion. Right mitten restraint in place. Tolerating pointake well. Action: Medications given per eMAR. Safety maintained. Hourly rounds done. Response: Patient rested well through the night. Will continue to monitor. ALFREDITO BOCANEGRA RN 07/15/2023 5:18 * Plan of Care - Trevor Andrew RN - 07/14/2023 0325 EDT Problem: Safety: Description: Module scope: For the purpose of this module, the definition for restraint comes from the Medicare and Medicaid Programs; Hospital Conditions of Participation. A restraint is any manual,physical, or mechanical device, material, or equip ... Goal: Complications related to restraint use will be avoided or minimized Outcome: Ongoing Problem: High Fall Risk: Goal: Patient will Remain Free of Falls due to Altered Mobility Outcome: Ongoing Problem: Respiratory: Goal: Ability to maintain a clear airway will improve Outcome: Ongoing Problem: SKIN INTEGRITY Goal: Skin integrity will improve or be maintained Outcome: Ongoing Data: Assumed pt care at 1900. Alert and oriented to person and place. On . Tele on -. Pt wasoff and on on, moving about on the bed ,attempted to remove NGT tube x1. 1: 1 constant observer at the bed side .Pt had 2-3 small stool, bottom and groin with redness. Alston catheter on. Q2T Action: Med offered per MAY. Pt was able to tolerate sips of juice and , cock and gingerale soda Response: pt was able to tolerate sip of soft dink , able to be calmed when changed or repositioned.. pt is resting comfortably TREVOR ANDREW RN 07/14/2023 3:25 * Plan of Care - Maryjane Biggs RN - 07/13/2023 1649 EDT Problem: Daily Care Plan Goals Goal: Care Plan Documentation Outcome: Ongoing Problem: Pressure Ulcer Prevention Goal: Absence Of Pressure Ulcer Outcome: Ongoing Problem: HEMODYNAMIC STATUS Goal: Patient Has Stable VS & Fluid Balance Outcome: Ongoing Data: Assumed pt care at 0700. Pt with mitts on right hand in place for interfering with care, 1:1 constant observer at bedside. Pt A&O to self. Verbal, garbled speech, and follows commands. Restless in bed but has been able to rest in between care. Alston in place with adequate with urine output. Incontinent of stool, multiple BMs. Sister Tarah called for updates. Action: VSS on RA. Afib on tele. HR <100. NG tube feeds discontinued, with pt able to swallow foods and sips of juice and water. Meds administered via NG tube as ordered. IV antibiotics administered. Continuous IVF. Hourly safety rounding. Q2hrs restraints assessed. Mouth and giselle care provided.Bed pad changed. Turned and repositioned q2hrs. Kept pt comfortable. Response: Resting in bed at this time. Call larson within reach. 1:1 at bedside. * Plan of Care - Sulma Rutherford RN - 07/12/2023 1845 EDT Problem: Daily Care Plan Goals Goal: Care Plan Documentation Outcome: Ongoing Flowsheets (Taken 07/12/2023 0700) Area of Focus: Neuro Status Goal This Shift: improve mentation Note: D: Assumed care at 0700. Mentation improving throughout shift, becoming more verbally responsive, alert to self, and almost place.pt less restless this shift, gabapentin seemed to help some. Pt stillperiodically trying to itch at his nose despite the mitts, was able to d/c the soft wrist restraints though, and trialing left mitt off with 1:1 close by. A: Hourly rounding, medications per MAY, monitored and reviewed labs, orders, notes, VS. Educated pt with plan of care, call larson with in reach. Clustered care to promote rest. Monitored for safety. R: VSS, Pt resting comfortably in bed. Pt has periods of rest. Pt was able to converse some with staff and talk on the phone with his sister this afternoon. Pt tolerating minimal PO intake, though much improved in the afternoon, was able to eat ice cream, jello, and a few bites of applesauce. * Plan of Care - Eunice Dexter RN - 07/12/2023 0351 EDT Problem: Daily Care Plan Goals Goal: Care Plan Documentation Outcome: Ongoing Flowsheets (Taken 07/11/2023 3535) Area of Focus: Circulatory Status Goal This Shift: VSS this shift Data: Assumed care at 2300. Received pt on bilateral soft restraints with mitts in place for interfering with care. Observed reaching for NGT. 1:1 at bedside. Alert and oriented to self. Nonverbal but follows commands. Yelling occasionally. Restless in bed but has been able to rest in between care.The restlessness seems to have improved overnight then it has been. VSS on RA. Afib on tele. HR <100. [address] in place with adequate with UOP. Incontinent of stool. Continuous IVF and tube feed infusing. Action: Meds administered via NG tube as ordered. Hourly safety rounding. Q2hrs restraints assessed. Mouth and giselle care provided. Bed pad changed. Turned and repositioned q2hrs. Kept pt comfortable. Response: Vitals stable this shift. Resting in bed at this time. EUNICE DEXTER RN 07/12/2023 3:51 * Plan of Care - Polina Evans - 07/11/20232043 EDT Problem: Safety: Goal: Complications related to restraint use will be avoided or minimized Note: Data: Patient has a one to one sitter and is in soft restraints with protective hand mitts due to his altered mental status and pulling at IV lines and NG tube. Action: The patient's wrists and hands were checked for signs of irritation and perfusion. Response:The patient's skin is intact with no redness noted, and capillary refill time was less than 3 seconds. The patient is resting comfortably at this time. Polina Evans 07/11/2023 20:37 * Plan of Care - Sulma Rutherford RN - 07/11/2023 1908 EDT Problem: Daily Care Plan Goals Goal: Care Plan Documentation Outcome: Ongoing Flowsheets (Taken 07/11/2023 1700 by Polina Evans) Area of Focus: Safety Goal This Shift: Patient will remain free from injury due to restraint use Note: D: Assumed care at 0700. A&O x self, unable to verbally responder, though occasionally respondswith nods or facial expressions. Pt appears to be uncomfortable much of the time, gabapentin was added which seemed to help some. Pt restless and impulsive, trying to itch at his nose frequently despite the mitts, soft wrist restraints, and 1:1, though success with attempts to disrupt. A: Hourly rounding, medications per MAR, monitored and reviewed labs, orders, notes, VS. Educated pt with plan of care, call larson with in reach. Clustered care to promote rest. Monitored for safety. R: VSS, Pt resting comfortably in bed. Pt has periods of rest, interspersed with frequent periods of restlessness. * Wound Care - Quita Carlson RN - 07/11/2023 9657 EDT Images from the original note were not included. Wound Care Follow up Admit Date: 06/25/2023 Date of Service: 07/11/2023 Reason for Consult: pt skin continues to worsen, break down (Prior DTI) Consulted by: Roxane Parikh RN [facility] Derrick Hobson is a 68 y.o. male with limited medical records available but a PMH significant for AF, COPD, Hep C, who presented for epistaxis and course complicated by hypotension, new severe systolic heart failure, AHRF, electrolyte derangements, and oliguria, consistent with cardiogenic shock, shock liver, and acute kidney failure of uncertain etiology. Transferred to [facility] for initiation of dialysis. Overall he is recovering from a mixed cardiogenic/distributive shock picture, now seeing some slow improvements in neuro status, though prognosis remains unclear. Pt has had hypernatremia during this admission which was improving and then acutely increased with a max of 160. Minimally responsive to D5 but downtrending this AM. Continue D5 and Q4H lytes checks.Question of expanding lt thigh hematoma with stable hgb and hematoma within margins. Assessment Patient known to wound care from initial consult at time of admission for a POA DTI. Patient is now HD 16. Seen on general medicine unit while staff bathing patient. He awake and regards but is somewhat resistant to care. Mitts present on bilateral UE, feeding tube secured with bridle. Skin in perineal region appears red and rashy, consistent with fungal rash. Very uncomfortable for patient with hygiene. After patient fully washed and gently dried, a dusting of antifungal powder was applied, followed by Zinc spray. Prior evolving deep tissue injury on sacrum/coccyx continues to evolve as expected. Midline wound is now unstageable. Periwound is dark pink and blanching with slough filled wound bed. Carefully cleaned and Triad paste applied to wound beds (mid and right). Sacral mepilex applied to protect area. Bilateral heels assessed and intact. Mepilex borders reapplied for friction protection. Rooke bootsreapplied. Mr Hobson remains on an Auralis with skin IQ for pressure and moisture management. Recommendations Triad paste to sacrococcygeal PI daily Nystatin powder (dusting only) to perineal fungal rash after careful wash and pat dry Zinc [place] after antifungal powder application Wound Care will follow this patient. Please contact us via SecureChat ([facility] Wound Care Team) or reconsult for further concern. Quita HICKS, RN, [facility] Nurse Clinician, Pressure Injury Prevention Wound Care Team [id number] * Plan of Care - Amaury New RN - 07/11/2023 0449 EDT Data: assumed patient care at 2300. Patient orientation unable to be assessed. Patient moaning and yelling most of shift. VSS. Hematoma on left upper thigh remains unchanged. Patient in bilateral soft wrist and bilateral mitt restraints due to constant pulling at lines. Afib on tele, rates in 80s/90s. Action: meds given via NG tube per may. Q2 restraint checks. Fluids offered. Tube feeds restarted. Giselle care and skin care completed. Q2 and prn repositionings 1:1 sitter at bedside. Oral care complete. Continuous pulse ox.environment promoted for rest. Cluster care provided. Response: patient is safe, VSS. AMAURY NEW RN 07/11/2023 4:50 * Plan of Care - Dominique Nevarez RN - 07/10/2023 1813 EDT Problem: High Fall Risk: Goal: Patient will Remain Free of Falls due to Altered Mobility Outcome: Ongoing Problem: High Fall Risk: Goal: Patient Will Remain Free from Fall-Related Injury Outcome: Ongoing Problem: Infection: Goal: Signs and symptoms of infection will decrease Outcome: Ongoing Problem: Respiratory: Goal: Ability to maintain a clear airway will improve Outcome: Ongoing Problem: SKIN INTEGRITY Goal: Skin integrity will improve or be maintained Outcome: Ongoing Data: Assumed care at 0700. Pt is oriented to self and respond to painful stimuli. Pt is incontinent of bladder and bowel. On tele, alston catheter, and adult brief in place and 4 bowel movements noted during this shift. Pt is dysphagia stage 2 and can tolerate soft food and purees, tube feeds has been stopped per provider's order. Continuous pulse ox, q6 blood glucose. 1:1 sitter located in the pt's room for supervision. Q4 vitals. Action: Hourly rounding done, q2 turns, pt received all shift meds, see the MAR, pt assessed and v/s completed. Lab drawn per provider's order. Bed alarm in place, alston catheter care provided, pt assisted with ADL's and care clustered to promote rest. Response: Patient is resting in bed, call larson within reach, a sitter has been assigned to monitor pt. DOMINIQUE NEVAREZ RN 07/10/2023 18:13 * Plan of Care - Vinod Whatley RN - 07/10/2023 0332 EDT Problem: Daily Care Plan Goals Goal: Care Plan Documentation Outcome: Ongoing Data: Pt admitted 06/24 with cardiogenic shock and acute kidney failure. Action: Pt is oriented to self, very delirious, impulsive, yells out with incomprehensible speech, pulling and picking at lines and tubes. 1:1 sitter at bedside to maintain patient safety. TF infusing, good UOP, multiple loose stools. Response: Continue to monitor and notify the team with any changes. VINOD WHATLEY RN 07/10/2023 3:32 * Plan of Care - Dominique Nevarez RN - 07/09/2023 1849 EDT Problem: HEMODYNAMIC STATUS Goal: Patient Has Stable VS & Fluid Balance Outcome: Ongoing Problem: OXYGENATION/REPIRATORY FUNCTION Goal: Patient will achieve/maintain baseline respiratory rate/effort Description: Respiratory rate and effort will be within normal limits for the patient Outcome: Ongoing Problem: Cardiac: Goal: Ability to maintain clinical measurements within defined limits will improve Outcome: Ongoing Data: Assumed care at 0700. Pt is oriented to self (will use minimal words such as help or hey!And can respond to painful stimuli). Pt is incontinent of bladder and bowel. On tele, alston catheter, and adult brief in place. Pt is dysphagia stage 2 and can tolerate soft food and purees, has tubefeeding running continuously. Continuous pulse ox, q6 blood glucose. Pt was initially schedule for dialysis, but wire walker cancel the procedure. Action: Hourly rounding done, pt received all shift meds, see the MAR, pt assessed and v/s completed. Q2 turns, bed alarm in place, alston catheter care provided, pt assisted with ADL's and care clustered to promote rest. Response: Patient is resting in bed, call larson within reach, a sitter has been assigned to monitor pt and pt's LDAs DOMINIQUE NEVAREZ RN 07/09/2023 18:50 * Plan of Care - Socorro Nelson RN - 07/08/2023 1842 EDT Problem: Daily Care Plan Goals Goal: Care Plan Documentation Flowsheets (Taken 07/08/2023 0800) Area of Focus: Nutrition/ Diet Goal This Shift: Patient will tolerate tube feeds and diet advancement Note: Data: Assumed care of patient at 0700. Patient is drowsy, occasionally saying one word answers but mostly just groans in response to questions. NG tube in place with continuous feeds running. 200 ml free water bolus added q6 hours. Alston catheter draining annette urine. Triple lumen PICC in place to right arm. Good blood return on all lumens. Action: Orders received for dysphagia 2 diet with thin liquids. Offered patient food. Patient ate apudding and applesauce, tolerated well. Also ate ice chips throughout the day. Total assist with feeding. Repositioned and checked for incontinence q2 hours. Patient was very restless in bed and repositioned self frequently as well. Response: Patient had 2 loose brown bowel movements today. 775 ml urine output in first 8 hours of day shift. Patient's mentation remains the same. Telemetry showing afib with heart rate fluctuating between 90-130 throughout the shift. Patient observed pulling at NG tube this evening and swinging legs over the edge of the bed rails. Video monitor initiated for these reasons. SOCORRO NELSON RN 07/08/2023 18:35 * Plan of Care - Herman, Perla Thorpe RN - 07/08/2023 0550 EDT Problem: High Fall Risk: Goal: Patient will Remain Free of Falls due to Altered Mobility Outcome: Ongoing Problem: High Fall Risk: Goal: Patient Will Remain Free from Fall-Related Injury Outcome: Ongoing Problem: Daily Care Plan Goals Goal: Care Plan Documentation Outcome: Ongoing Problem: Cardiac: Goal: Ability to maintain clinical measurements within defined limits will improve Outcome: Ongoing Problem: High Fall Risk: Goal: Patient will Remain Free of Falls due to Med. Side Effects Outcome: Ongoing Problem: High Fall Risk: Goal: Patient will Remain Free of Falls due to Altered Elimination Outcome: Ongoing Problem: High Fall Risk: Goal: Patient will Remain Free of Falls due to Confusion Outcome: Ongoing Problem: SKIN INTEGRITY Goal: Skin integrity will improve or be maintained Outcome: Ongoing Problem: HEMODYNAMIC STATUS Goal: Patient Has Stable VS & Fluid Balance Outcome: Ongoing Problem: OXYGENATION/REPIRATORY FUNCTION Goal: Patient will achieve/maintain baseline respiratory rate/effort Description: Respiratory rate and effort will be within normal limits for the patient Outcome: Ongoing DATA: received pt at 1900, he is sitting up on bed watching tv, has an ongoing iv zosyn at right picc, tube feeds on ngt, he is ox1, confused, inappropriate words, unable to follow commands, hr is irregular, had a 5sec vtach, rapid afib to 157, MD informed, lungs are diminished and crackles, on RA sats above 90%, will give O2 for comfort. He has hypoactive bowel sounds, with ngt In situ, has a alston draining cloudy annette urine, incontinent of stool, mepilex on sacrum and has rooke boots on BLE.Pt will squirm on bed and shout due to uncomfortable, MD informed if we could increase pain meds ACTION: meds given as per MAY, tylenol for pain given, MD will tell the dayteam regarding additional meds for pain. RESPONSE; pt did not sleep, HR ranges from 100-130 bpm, rapid HR not sustained, pt still groaning and moaning despite tylenol and reposition done * Plan of Care - Duncan Bond RN - 07/07/2023 5778 EDT Data: Assumed patient care at 0700. Patient is alert to self only. Patient confused and unable to make needs know. Nutren running at 33ml/hr. Q6 blood glucose. Pt on Tele. Action: Medications administered per MAY. Pt frequently repositioned. Pt checked for incontinence. Response: Patient incontinent of stool after rectal tube removed. Patient awake and moving in bed all shift. Patient remains confused and unable to follow commands. DUNCAN BOND RN 07/07/2023 18:58 Problem: High Fall Risk: Goal: Patient Will Remain Free from Fall-Related Injury Outcome: Ongoing Problem: Cardiac: Goal: Ability to maintain clinical measurements within defined limits will improve Outcome: Ongoing Problem: HEMODYNAMIC STATUS Goal: Patient Has Stable VS & Fluid Balance Outcome: Ongoing * Plan of Care - Perla Sutton RN - 07/07/2023 0442 EDT Problem: High Fall Risk: Goal: Patient will Remain Free of Falls due to Altered Mobility Outcome: Ongoing Problem: High Fall Risk: Goal: Patient Will Remain Free from Fall-Related Injury Outcome: Ongoing Problem: Daily Care Plan Goals Goal: Care Plan Documentation Outcome: Ongoing Problem: Cardiac: Goal: Ability to maintain clinical measurements within defined limits will improve Outcome: Ongoing Problem: Respiratory: Goal: Ability to maintain a clear airway will improve Outcome: Ongoing Problem: High Fall Risk: Goal: Patient will Remain Free of Falls due to Med. Side Effects Outcome: Ongoing Problem:High Fall Risk: Goal: Patient will Remain Free of Falls due to Altered Elimination Outcome: Ongoing Problem: High Fall Risk: Goal: Patient will Remain Free of Falls due to Confusion Outcome: Ongoing Problem: SKIN INTEGRITY Goal: Skin integrity will improve or be maintained Outcome: Ongoing Problem: HEMODYNAMIC STATUS Goal: Patient Has Stable VS & Fluid Balance Outcome: Ongoing Problem: OXYGENATION/REPIRATORY FUNCTION Goal: Patient will achieve/maintain baseline respiratory rate/effort Description: Respiratory rate and effort will be within normal limits for the patient Outcome: Ongoing DATA: received pt at 1900, pt went to US, came back before 8pm. He is ox1, confused and unable to follow commands, verbal and physical when turned or care to be done to patient. Lungs are diminished,on O2 at 2LPM and sats above 88%, active bowel sounds, has an NG connected on the right nostril with a feeding rate of 33 mls/hr, has a alston draining annette clear urine, and a rectal tube draining brown loose small amount of BM. Has big hematomas on left inner thigh and left hip, mepilex border on sacrum for a st 2-3 sacral wound, palpable peripheral pulses ACTION: meds given as per MAR, bedrest turn q2, perineal hygiene done kept head of bed > 30degree, vs and fsg checked RESPONSE: pt has less sleep, mostly awake, vss * Plan of Care - Dominique Nevarez RN - 07/06/2023 9463 EDT Problem: Cardiac: Goal: Ability to maintain clinical measurements within defined limits will improve Outcome: Ongoing Problem: Respiratory: Goal: Ability to maintain a clear airway will improve Outcome: Ongoing Data: Assumed care at 0700. Pt is oriented to self (but is not assessable because pt is nonverbal).Pt is incontinent of bladder and bowel. On tele, rectal tube and alston catheter in place. Pt is NPO, has tube feeding running continuously. Continuous pulse ox, q6 blood glucose check. Pt had one episode of desating into the low 80's, respiratory intervention called. Pt received dialysis and X-ray. Action: Hourly rounding done, pt received all shift meds, see the MAR, pt assessed and v/s completed. Labs drawn per doctor's order, q2 turns, bed alarm in place, new alston catheter placed, care clustered to promote rest. Response: Patient is resting in bed, call larson within reach, will continue to monitor. DOMINIQUE NEVAREZ RN 07/06/2023 14:53 * Plan of Care - Derrick Maldonado RN - 07/06/2023 0930 EDT Problem: HEMODIALYSIS Goal: Hemodialysis Care Needs Are Met Outcome: Ongoing Goal: Dialysis Access Maintained Outcome: Ongoing Dialysis Program Nursing Acute-Care Note Kt/V: 1.05 Net fluid removal 0 Access: Temporary Catheter Access function: Satisfactory Pre Post BP 167/114 132/64 Pulse 114 83 Temp 36.3 36.5 Weight 70.2 70.2 Method of weight: Mechanical Lift Treatment Comments/Issues/concerns Mental Status Pre: aox1 Mental Status Post: aox1 Pain score: Pre: 0. Post: 0 Post dialysis system: Few strands pt tolerated tx well, no uf removed,blood lines clotting x1 during tx, pt repositioned q2h, primaryrn updated post hd * Plan of Care - Cassy Oliva RN - 07/06/2023 0700 EDT Problem: Daily Care Plan Goals Goal: Care Plan Documentation 07/06/2023 0524 by Cassy Oliva, RN Flowsheets (Taken 07/06/2023 0000) Area of Focus: Circulatory Status Goal This Shift: pt will remain hemodynamically stable Data: Assumed care at 2300. Pt non verbal mostly with incomprehensible speech. Orientation difficult to assess due to this. Alston, rectal tube and NGT in place. Tube feed running continuously. Pt NPO. BG checks q6 hrs. Daily weight obtained. Continuous pulse ox on. No observed s/s of pain or respiratory issues. Action: Assessed pt. Vitals monitored. PIP bundle: auralis bed use, disposable chux, bilateral rooke boots, q2 turns, moisture management ointments. Tube feeds running. Bed alarmed for safety, touch call larson next to pt, hourly rounding provided. Response: Pt resting at change of shift. Skin integrity maintained with interventions. RR even and unlabored, with hand off completed. CASSY OLIVA RN 07/06/2023 5:25 * Plan of Care - Bev Bennett RN - 07/05/2023 1206 EDT Problem: Daily Care Plan Goals Goal: Care Plan Documentation Flowsheets (Taken 07/05/2023 0700) Area of Focus: Circulatory Status Goal This Shift: Pt will have map>60 Data: MAP>65. Watching TV. Speaks in single words Water. Ignores or does not wish to interact with medical staff. Able to raise arms, turn with assist. Enjoys ice chips. Sister updated on the phone. Action: Continue nutren 2.0 at 33ml/hr. Continue with BP q4hr. Auralis bed still required. Response: Slowly improving. Will need extensive rehab. BEV BENNETT RN 07/05/2023 12:06 * Transfer Summary (Intrafacility) - Cande Stover MD - 07/05/2023 1153 EDT [facility] Transfer Summary Service Date: 07/05/2023 Admit Date: 06/25/23 Primary Care Provider: Davian Guzman Chief Complaint: Epistaxis HPI Derrick Hobson is a 68 y.o. male with a PMHx of PMH significant for HFrEF, AF, COPD, Hep C s/p treatment, cocaine use, known hx cirrhosis who initially presented to [facility] for epistaxis. Upon arrival he was found to have severe nose bleed not responsive to tamponade with bilateral rhino rocket. ENT was consulted for assistance. Patient became febrile for which he received empiric antibiotics (augmentin then tranitioned to cefepime). Course in ED was complicated by episode of acute decreased mentation for which RUBBER CUTTING MACHINE TENDER was called and patient was found to be hypoglycemic to 12 which responded to D50. Patient was transferred to MICU for further management. There he subsequently experienced shock requiring pressor support and altered mentation requiring intubation for airway protection. Additionally, patient went into acute liver failure and sustained asevere JOS with anasarca. Ultimately transferred to [facility] for inpatient CRRT due to fluid overload. He was found to have mixed cardiogenic and possibly septic shock from rhino rocket. Course further complicated by persistent Afib w/ RVR, large L femoral hematoma, DIC, acute on chronic thrombocytopenia/anemia, intermittent hypoglycemia, persistent encephalopathy with some initial concern for anoxic brain injury. Patient was ultimately extubated on 07/02 and quickly weaned to room air. Remains off pressor support since 06/29 following empiric 7 day course of CTX for possible infection. On 07/04 patient was medically stable for transfer to floor. During interview, patient refused to utter a single word. Though he appeared to have full comprehension of conversation in room which was evidenced by tracking verbal stimuli with his eyes and non-verbal cues with facial expressions. Per family, patient does not like itneracting with the medical system nor with medical providers. Patient repeatedly shoot his head when asked if he would speak to providers. Per nursing, he utters short phrases and words. Thus, lack of communication is volitional and not due to neurologic deficits. When speaking to other staff, responses are conversational and appropriate in the given contexts. Moving all extremities spontaneously though not participating in neuro exam. Intermittently grabbing at lines. Review of Systems A complete 10 point ROS was performed and pertinent positive and negative findings listed in HPI, otherwise negative. History reviewed. No pertinent past medical history. History reviewed. No pertinent surgical history. Social History Tobacco Use Smoking status: Unknown Smokeless tobacco: Not on file Substance Use Topics Alcohol use: Not on file History reviewed. No pertinent family history. Medications Prior to Admission Medication Sig aspirin 81 mg EC tablet Take 1 Tablet by mouth daily. beclomethasone (QVAR) 80 mcg/Actuation inhaler Inhale 2 Puffs as directed 2 times daily. CALCIUM CARBONATE, [id number], (TUMS ORAL) Take 1-5 Tabs by mouth as needed. celecoxib (CELEBREX) 100 mg capsule Take 1 Capsule by mouth daily. CEROVITE SENIOR 0.4 mg-300 mcg- 250 mcg tablet Take 1 Tablet by mouth daily. citalopram (CELEXA) 20 mg tablet Take 1 Tablet by mouth daily. cyclobenzaprine (FLEXERIL) 10 mg tablet Take 1 Tablet by mouth 3 times daily as needed for Muscle Spasms. gabapentin (NEURONTIN) 300 mg tablet Take 3 Tabs by mouth 3 times daily. HYDROcodone-acetaminophen (NORCO) 10-325 mg tablet Take 1 Tablet by mouth every 6 hours. Daily Max:4 Tablets ibuprofen (MOTRIN) 200 mg tablet Take 4 Tabs by mouth 3 times daily. IPRATROPIUM/ALBUTEROL SULFATE (COMBIVENT INHL) Inhale 2 Puffs as directed every 4 hours as needed. lisinopril (PRINIVIL, ZESTRIL) 20 mg tablet Take 20 mg by mouth daily. metoprolol SUCCinate (TOPROL-XL) 25 mg tablet Take 1 Tablet by mouth daily. pantoprazole (PROTONIX) 40 mg tablet Take 1 Tablet by mouth daily. spironolactone (ALDACTONE) 25 mg tablet Take 1 Tablet by mouth daily. topiramate (TOPAMAX) 50 mg tablet Take 1 Tablet by mouth 2 times daily. tramadol (ULTRAM) 50 mg tablet Take 50 mg by mouth every 6 hours as needed for Pain. verapamil (CALAN-SR) 120 mg ER tablet Take 1 Tablet by mouth daily. Allergies Allergen Reactions Clonidine Other (See Comments) Dry mouth Objective Vitals Temp: [36.3 ??C (97.3 ??F)-36.9 ??C (98.5 ??F)] , Heart Rate: [96 BPM-117 BPM] , Pulse: --, Resp: [13-22] , BP: (112-151)/(78-105) , SpO2: [77 %-100 %] , O2 Flow Rate (L/min): (S) 1 l/min Numeric Pain Level (Scale 1-10): -- Weight: Weight : 80 kg (176 lb 5.9 oz) Body mass index is 23.92 kg/m??. Physical Exam Gen: NAD, awake, alert, oriented; diffuse jaundice Skin: Warm, dry, intact on visible surfaces with no rashes or lesions HEENT: Atraumatic, conjunctivae clear, slceral -icterus, pharynx with no exudates or erythema Cardiac: Regular rate and rhythm, no murmurs/rubs/gallops, +S1/S2 Resp: Lung sounds clear in all lung mckee, no wheezes/crackles Abd: Soft, non-tender, non-distended, no visible lesions or scars, +bowel sounds, no hepatosplenomegaly Extr: No swelling/erythema, no apparent limited ROM; very large L medial femoral hematoma Neuro: Awake and oriented, strength and sensation grossly intact Psych: Pleasant affect Labs I have personally reviewed Recent Labs 07/05/23452 WBC 12.61* RBC 3.07* HGB 7.4* HCT 20.9* MCV 68* MCH 24.1* MCHC 35.4 PLT 156 Recent Labs 07/05/23452 NA 137 K 3.3* CL 99 CO2 26 BUN 79* CREATININE 3.57* CALCIUM 8.3* MG 2.0 PHOS 5.0* LABALBU 2.6* Recent Labs 07/05/23452 PROTIME 13.8* INR 1.2* Recent Labs 07/05/23452 TBIL 7.9* ALKPHOS 149* AST 149* ALT 216* Imaging XR CHEST PORTABLE LINE PLACEMENT Result Date: 07/02/2023 1. Right PICC terminating in the superior cavoatrial junction with interval removal of the previously seen right internal jugular central venous catheter. 2. Bilateral pleural effusions. Medial rightapical opacity, possibly pleural fluid. 3. Persistent ill-defined right mid and lower lung opacity.[id number] CT ANGIO LOWER EXTREMITY LEFT Result Date: 07/01/2023 1. Active extravasation into the ill-defined left thigh hematoma, arising from the superficial femoral artery 2. Marked thickening of the urinary bladder, similar to prior. 3. Aneurysm of the infrarenal abdominal aorta measuring up to 3.5 cm, similar to prior. 4. Mild subcutaneous edema, more confluent in the left lower extremity. Discussed impression [address] Mccauley the MICU fellow I have personally reviewed the images and the above interpretation and agree with the findings. [id number] XR FEEDING TUBE PLACEMENT Result Date: 06/30/2023 Findings/Impression: Portable AP view centered over the lower chest upper abdomen demonstrates thatthe feeding tube tip projects over the gastric body. There has been interval removal of the previously seen transesophageal sump tube. There is interval decrease in volume of dense material in the stomach. Shift of mediastinal structures to the right is again noted and there is evidence of airspaceopacity in the right lung base. Air-filled loops of bowel are noted in the imaged portions of the upper abdomen. This is neither a complete view of the chest nor of the abdomen. If either view is needed, formal films are recommended. [id number] MR HEAD WO CONTRAST Result Date: 06/29/2023 1. No MRI evidence of anoxic or hypoglycemic brain injury. 2. Mild restricted diffusion, T1 hypointensity, and FLAIR hyperintensity throughout the majority of the calvarium, findings which could represent an infiltrative marrow process. A dedicated nuclear medicine bone scan scan is recommended forfurther characterization and to assess for other areas of involvement. I have personally reviewed the images and the above interpretation and agree with the findings. [id number] XR FEEDING TUBE PLACEMENT Result Date: 06/29/2023 Findings/Impression: Portable AP view centered over the lower chest upper abdomen demonstrates thatthe transesophageal tube tip projects over the body of the stomach. A sump tube is also seen in thebody of the stomach. Dense material in the stomach. Lobar atelectasis in the incompletely imaged right lung base and subsegmental atelectasis on the left. This is neither a complete view of the chestnor of the abdomen. If either view is needed, formal films are recommended. I have personally reviewed the images and the above interpretation and agree with the findings. [id number] XR CHEST PORTABLE LINE PLACEMENT Result Date: 06/26/2023 1. Tip of the right internal jugular catheter projects at the right pulmonary artery. 2. Bilateral pleural effusions better assessed on comparison CT. [id number] CT HEAD WO CONTRAST Result Date: 06/26/2023 No evidence of acute infarction, intracranial hemorrhage, or mass. I have personally reviewed the images and the above interpretation and agree with the findings. [id number] CT ABDOMEN PELVIS W CONTRAST Result Date: 06/26/2023 1. Diffuse concentric bladder wall thickening with adjacent fluid which can be seen with urinary tract infection. Clinical correlation with urinalysis is recommended. 2. Ill-defined wedge-shaped low-attenuation foci in the right kidney, which could represent an age-indeterminate renal infarct or sandhya lonephritis in the appropriate clinical setting. Clinical correlation with urinalysis is recommended. 3. Multiple nondistended loops of small bowel filled with fluid favored related to shock etiologygiven patient history; however, enteritis cannot entirely be excluded. The bowel appears well perfused with no evidence of pneumatosis, portal venous gas, or free air. 4. Moderate volume peritoneal free fluid and diffuse body wall edema, nonspecific, but could also represent sequela of shock. 5. Age indeterminant mild compression deformity of the superior endplate of L2 with no evidence of retropulsion of fracture fragments or involvement of the posterior elements. 6. Atherosclerosis with fusiform infrarenal aortic dilation up to 3.5 cm. 7. Cholelithiasis. I have personally reviewed the images and the above interpretation and agree with the findings. [id number] CT ANGIO CHEST PE PROTOCOL Result Date: 06/26/2023 1. No evidence of acute or chronic pulmonary embolism. 2. Right lower lobe atelectasis with regionsof distal mucous plugging and questionable heterogeneous enhancement raises the possibility of superimposed infection. Additional mild bronchiolitis suspected within the upper lobes. 3. Bilateral pleural effusions, moderate on the right and small in the left. 4. Biatrial enlargement. Some componentof the peribronchovascular thickening and effusions may be related to heart failure/pulmonary edema, with additional findings of anasarca and ascites. 5. Endotracheal tube tip terminates about 1.5 cmfrom the sidra, consider slight retraction. Transesophageal tube, esophageal temperature probe, and bilateral IJ central lines are properly positioned. 6. There are some top normal mediastinal lymphnodes, favored to be reactive. I have personally reviewed the images and the above interpretation and agree with the findings. [id number] XR CHEST LINE PLACEMENT Result Date: 06/25/2023 1. New left IJ central venous catheter with tip in the SVC. 2. Otherwise grossly stable exam from 4hours prior. [id number] XR CHEST PORTABLE LINE PLACEMENT Result Date: 06/25/2023 Dense right lower lobe opacification may reflect either pneumonia or atelectasis. There is likely an associated right pleural effusion. Left lower lobe changes are most likely reflective of interstitial edema. Tubes and lines in position as detailed. Probable chronic posttraumatic abnormalities of the distal right clavicle status post left reverse total shoulder arthroplasty. [id number] Assessment Derrick Hobson is a 68 y.o. male with limited medical records available but a PMH significant for AF, COPD, Hep C who presented for epistaxis, then complicated by hypotension, new severe systolicheart failure, AHRF, electrolyte derangements, and oliguria, consistent with cardiogenic shock, shock liver, and acute kidney failure of uncertain etiology at this time. Transferred to [facility] forinitiation of dialysis. Overall he is recovering from a mixed cardiogenic/distributive shock picture, now seeing some slow improvements in neuro status, though prognosis remains unclear. Plan to monitor and provide supportive care. Consider discussing goals of care with his family. Liver function and renal function improving and patient remains hemodynamically stable off pressors. Due to cardiogenic shock and degree of reduced EF, will require ischemic evaluation prior to discharge and further titration of GDMT. Not yet stable for discharge due to need for inpatient HD, persistent afib w/ RVR, and resolving coagulopathies. Plan #Acute kidney failure, suspected ATN - resolving #Anasarca (improved) #Hyperphosphatemia L IJ dilaysis line in place. iHD with normalization of electrolytes. Now with return of some renal funtion with good UOP still requiring HD. - Tums added as phos binder - Daily phos - CTM; appreciate nutrition recs - Transitioned from CRRT to intermittent HD 06/28. - Nephrology consulted, appreciate recs - Goal ne even - Avoid nephrotoxins - Trend BMP daily - Strict I/O #Severe systolic heart failure (EF 20-25% --> 40%) #Mixed Cardiogenic/Distributive Shock (Resolved) Off pressors and inotropes since 06/26. EF improved significantly from 20% on admission to 40% on 06/27. Plan to start introducing GDMT. - HFrEF with regional wall motion abnormalities - will need ischemic workup prior to discharge - Goal SBP 120-160 - Cardiology consulted, appreciate recs (now signed off) - isosordil 10mg PO TID, hydralazine 10g PO TID - Goal HR <140 - ideally obtain repeat assessment of LVEF when no longer in RVR - ischemic eval with C prior to discharge (no urgency to study and the timing will be dictated byhis clinical improvement) - Holding metoprolol iso recent cardiogenic shock, consider restarting for afib w/ RVR and GDMT - Will require MRA for GDMT at some point - Currently euvolemic, no role for lasix #Permanent Afib (currently in RVR): CHADs-VASc HAS-BLED - Telemetry - Hold PICTURE PAINTER metop iso recent shock - Hold AC for femoral hematoma - Amio 400 mg PO daily starting 06/29 - Goal HR < 140 #Decompensated Cirrhosis (ascites, jaundice) #Elevated Liver Chemistries 2/2 Shock Liver #Hx Hepatitis C Virus s/p treatment Unclear if pt has hx of liver injury. Current picture c/w resolving shock liver, though on admission AST was significant greater than ALT. Hyperbilirubinemia may be in part due to hemolysis of blood in hematoma. - Daily CMP - Lasix, josey as above - Will require EGD outpatient - Referral to hepatology clinic OP MELD 3.0: 29 at 07/05/2023 4:53 MELD-Na: 29 at 07/05/2023 4:53 Calculated from: Serum Creatinine: 3.57 mg/dL (Using max of 3 mg/dL) at 07/05/2023 4:53 Serum Sodium: 137 mmol/L at 07/05/2023 4:53 Total Bilirubin: 7.9 mg/dL at 07/05/2023 4:53 Serum Albumin: 2.6 g/dL at 07/05/2023 4:53 INR(ratio): 1.2 Ratio at 07/05/2023 4:53 Age at listing (hypothetical): 68 years Sex: Male at 07/05/2023 4:53 #Microcytic anemia, Thrombocytopenia #L femoral hematoma #Coagulopathy/DIC (resolving) Hematoma stable thus far, no e/o ongoing bleed. Chronic JANUSZ excacerbated by acute blood loss anemiaiso DIC/hemolysis. Pattern of rising PTT, PT, D-dimer and a low fibrinogen is consistent with DIC, possibly complicated by suspected chronic liver disease though difficult to evaluate given lack of previous labs. Will continue to monitor for signs of active bleeding and repeat coags with or withoutTEG in the event of further bleeding. - If Hb drops, get CTA and consult IR - Hold heparin - Daily CBC - Consider Fe supplementation prior to d/c - Daily PT/PTT - S/p 1 unit FFP 06/25 - S/p 2x Vit K 10mg - hold further doses with improving coags #Acute Toxic/Metabolic Encephalopathy #Concern for anoxic brain injury Now off sedation and extubated, slowly improving in his mental status and ability to communicate, however prognosis is guarded. Concern for hypoactive ICU delirium vs an anoxic/hypoglycemic brain injury. Also treating empirically for hepatic encephalopathy though much less likely as he is believed to have acute liver failure rather than cirrhosis . - MRI without evidence of anoxic or hypoglycemic brain injury - lactulose, rifaximin - sedation/anxiety management with haldol, fentanyl PRN over propofol - Goals of care conversation with family. #Critical Illness Myopathy #Malnutrition - Trickle tube feeds - nutren 20 --> 40cc/hr - bowel regimen PRN - S/p thiamine 500mg IV TID x3 days - PT/OT - SEPTIC TANK SERVICER - Remove NG once taking PO #Polysubstance Use Disorder - known hx cocaine use - ? EtOH use disorder - unclear if hx opioid use CHRONIC/STABLE/RESOLVED: #Acute hypoxic respiratory failure (resolved): Extubated to 3L NC on 07/02. Now on RA. S/p CTX x7 d (06/26 - ) for empiric CAP coverage though overall low suspicion #COPD: PICTURE PAINTER duonebs PRN #HTN: PICTURE PAINTER metop held #Mood disorder: Restart PICTURE PAINTER citalopram #Facial twitches (resolved): unilateral facial twitches observed by nursing staff on admission. EEGnegative for epileptiform activity # ?Neuropathic pain: Hold PICTURE PAINTER Cyclobenzaprine 10mg daily, Gabapentin 800mg TID with liver/kidney injury # Intermittent hypoglycemia - resolved: Unclear etiology of this hypoglycemia, could be reflective of known hepatic dysfunction although would havve expected it to be worse while he was in shock liver and improving now. Initiated some workup with serum AM cortisol (normal); if he continues to be hypoglycemic with increased tube feeds, will consider further workup. CHECKLIST: Admission status: inpatient d/t renal impairment, weakness, and resolving shock VTE Prophylaxis: held iso DIC and large L femoral hematoma Consults: n/a Code Status: Full Diet: Tube feeds, oral intake pending SEPTIC TANK SERVICER consult Discharge Plan: Will likely require physical rehab given degree of weakness Admission status: Inpatient admission due to anticipated duration of hospitalization is two midnights or greater due to Shock. Cande Stover MD Internal Medicine, PGY-2 07/05/2023 11:53 Associated attestation - Can Oneill MD - 07/05/2023 2293 EDT I interviewed and examined the patient. I have personally reviewed interval events, laboratory data, and imaging. I discussed the case with the inpatient resident team. I agree with findings and planof care as documented by the resident (or have edited in Blue). Can Oneill MD * Plan of Care - Monica Bautista RN - 07/05/2023 0547 EDT Images from the original note were not included. Data: Assumed pt care of Derrick Hobson at 1900. Pt admitted for Shock ([facility]) [R57.9] . Patient GCS 11, verbal sounds, tracks, but doesn't follow commands. No signs of pain at this time. Heart Rhythm: afib in the 110's controlled. With HR goal <140 Hemodynamically stable with SBP goal 120-160 Clear lung sounds on 3L NC PICC and Trialysis HD in place and patent. Alston and Flexiseal in place and draining. Action Monitored cardiovascular, respiratory, neurological, GI and status. Meds per eMAR Strict I&O Turned and repositioned q2h Mouth care, Alston care and CHG bath provided. Response:. Off NC. Call larson within reach. Hourly rounding and pain management ongoing. Safety and fall precautions maintained. Encouraged restful environment overnight. Next HD planned for 07/06/2023 Intake/Output Summary (Last 24 hours) at 07/05/2023 0547 Last data filed at 07/05/2023 0500 Gross per 24 hour Intake 1693.15 ml Output 2640 ml Net -946.85 ml Problem: Safety: Description: Module scope: For the purpose of this module, the definition for restraint comes from the Medicare and Medicaid Programs; Hospital Conditions of Participation. A restraint is any manual,physical, or mechanical device, material, or equip ... Goal: Complications related to restraint use will be avoided or minimized Outcome: Ongoing Problem: High Fall Risk: Goal: Patient will Remain Free of Falls due to Altered Mobility Outcome: Ongoing Problem: High Fall Risk: Goal: Patient Will Remain Free from Fall-Related Injury Outcome: Ongoing Problem: Sensory: Goal: Ability to compensate for vision loss will be supported Outcome: Ongoing Problem: Daily Care Plan Goals Goal: Care Plan Documentation Outcome: Ongoing Problem: Infection: Goal: Signs and symptoms of infection will decrease Outcome: Ongoing Problem: Cardiac: Goal: Ability to maintain clinical measurements within defined limits will improve Outcome: Ongoing Problem: Respiratory: Goal: Ability to maintain a clear airway will improve Outcome: Ongoing Problem: High Fall Risk: Goal: Patient will Remain Free of Falls due to Med. Side Effects Outcome: Ongoing Problem: High Fall Risk: Goal: Patient will Remain Free of Falls due to Altered Elimination Outcome: Ongoing Problem: High Fall Risk: Goal: Patient will Remain Free of Falls due to Confusion Outcome: Ongoing Problem: SKIN INTEGRITY Goal: Skin integrity will improve or be maintained Outcome: Ongoing Problem: Pressure Ulcer Prevention Goal: Absence Of Pressure Ulcer Outcome: Ongoing Problem: Impaired Skin Integrity Goal: Signs of wound healing will improve Outcome: Ongoing Problem: HEMODYNAMIC STATUS Goal: Patient Has Stable VS & Fluid Balance Outcome: Ongoing Problem: OXYGENATION/REPIRATORY FUNCTION Goal: Patient will achieve/maintain baseline respiratory rate/effort Description: Respiratory rate and effort will be within normal limits for the patient Outcome: Ongoing Problem: MECHANICAL VENTILATION Goal: Patient Will Maintain Patent Airway Outcome: Ongoing Goal: ET Tube Will Be Managed Safely Outcome: Ongoing Problem: High Fall Risk: Goal: Patient will Remain Free of Falls due to Dizziness/Vertigo Outcome: Ongoing Problem: HEMODIALYSIS Goal: Hemodialysis Care Needs Are Met Outcome: Ongoing Goal: Dialysis Access Maintained Outcome: Ongoing * Plan of Care - Derrick Maldonado RN - 07/04/2023 1029 EDT Dialysis Program Nursing Acute-Care Note Kt/V: 0.76 Net fluid removal 0 Access: Temporary Catheter Access function: Satisfactory Pre Post BP 136/94 124/89 Pulse 107 108 Temp 36.6 36.7 Weight 80 80 Method of weight: Bed Treatment Comments/Issues/concerns Mental Status Pre: aox1 Mental Status Post: aox1 Pain score: Pre: 0. Post: 0 Post dialysis system: Few strands pt tolerated tx well, vss post hd, pt repositioned q2h, primary rn updated post hd * Plan of Fabiola Bucio RN - 07/04/2023 0645 EDT Problem: Safety: Description: Module scope: For the purpose of this module, the definition for restraint comes from the Medicare and Medicaid Programs; Hospital Conditions of Participation. A restraint is any manual,physical, or mechanical device, material, or equip ... Goal: Complications related to restraint use will be avoided or minimized Outcome: Ongoing Problem: High Fall Risk: Goal: Patient will Remain Free of Falls due to Altered Mobility Outcome: Ongoing Problem: High Fall Risk: Goal: Patient Will Remain Free from Fall-Related Injury Outcome: Ongoing Problem: Daily Care Plan Goals Goal: Care Plan Documentation Outcome: Ongoing Problem: Infection: Goal: Signs and symptoms of infection will decrease Outcome: Ongoing Problem: Cardiac: Goal: Ability to maintain clinical measurements within defined limits will improve Outcome: Ongoing Problem: High Fall Risk: Goal: Patient will Remain Free of Falls due to Altered Elimination Outcome: Ongoing Problem: High Fall Risk: Goal: Patient will Remain Free of Falls due to Confusion Outcome: Ongoing Problem: SKIN INTEGRITY Goal: Skin integrity will improve or be maintained Outcome: Ongoing Problem: Impaired Skin Integrity Goal: Signs of wound healing will improve Outcome: Ongoing Data: Assumed care of pt at 1900. Action: Meds per MAY. Labs as ordered. Pt turned Q2. Multiple loose/watery bowel movements. Rectal tube placed to improve skin integrity. Response: Pt unable to follow commands but will recognize name when talked to. Incomprehensible speech. Sating well on 3L NC. FABIOLA KIMBALL RN 07/04/2023 6:45 * Plan of Care - Almaz Barber RN - 07/03/2023 1505 EDT Problem: Safety: Description: Module scope: For the purpose of this module, the definition for restraint comes from the Medicare and Medicaid Programs; Hospital Conditions of Participation. A restraint is any manual,physical, or mechanical device, material, or equip ... Goal: Complications related to restraint use will be avoided or minimized Outcome: Ongoing Problem: Daily Care Plan Goals Goal: Care Plan Documentation Outcome: Ongoing Problem: High Fall Risk: Goal: Patient will Remain Free of Falls due to Med. Side Effects Outcome: Ongoing Data: 0700: Care assumed. Patient vented, sedated with low dose propofol. Action: 0800: Assessmeet complete. Patient repositioned every 2 hours. Extubated by RT to OK About 1415 with reposition, L groin hematoma appears larger. HO Vistner into assess. HGb, HCT ordered, sent stat. Response: VSS, O2 sats stable. Good U/O. Patient still not speaking much at all, and is withdrawn, but resting at present, TF infusing. ALMAZ BARBER RN 07/03/2023 15:05 * Plan of Care - Leanna Hernandez MD - 07/02/2023 1633 EDT Cardiology Consults -- Brief Plan of Care Note Chart reviewed and case formally discussed on rounds with Dr. Boo. After reviewing his chart, we believe that his initial presentation was predominantly driven by septic rather than cardiogenic shock. Fecal for now, would recommend ongoing management for septic shock with IV ceftriaxone and RV function, and continuing to wean mechanical ventilation as tolerated. Given improved, yet still decreased LVEF of 40%, believe that he should be started on appropriate guideline directed medical therapy with LINDSAY/ARB/Arni, beta-clyde, MRA, and SGLT2 inhibitor prior todischarge. Also, given new decrement in LVEF, believe that he would benefit from ischemic evaluation once his clinical condition improves. Cardiology consult service will sign off at this time. Please feel free to contact us [facility] floor team needs assistance with initiation of GDMT at a later date. LEANNA HERNANDEZ MD Motion Study Technician - PGY5 Pager: [phone] 07/02/23 16:33 * Plan of Care - Bev Bennett RN - 07/02/2023 1511 EDT Problem: Daily Care Plan Goals Goal: Care Plan Documentation Outcome: Ongoing Flowsheets (Taken 07/02/2023 0800) Area of Focus: Circulatory Status Goal This Shift: MAP>65 Data: Dialysis today=map>65 with 1liter removed. No use of levophed for dialysis. Urine output steady. FSstabilized after d10 at 80ml/hr. Action: Ps trial this afternoon. Prop on hold during the trial. Nutrition via feeding tube. Response: Withdraws from stimulus, cough and gag positive, unable to follow commands. BEV BENNETT RN 07/02/2023 15:11 * Plan of Care - Bev Bennett RN - 07/02/2023 1202 EDT Dialysis/CRRT Final Verification Completed with Jose C Haas RN 07/02/2023 12:02 * Plan of Care - Fransisca Fernández RN - 07/02/2023 1101 EDT Problem: HEMODIALYSIS Goal: Hemodialysis Care Needs Are Met Outcome: Ongoing Goal: Dialysis Access Maintained Outcome: Ongoing * Plan of Care - Bev Bennett RN - 07/01/2023 1425 EDT Problem: Daily Care Plan Goals Goal: Care Plan Documentation Outcome: Met This Shift Flowsheets (Taken 07/01/2023 0800) Area of Focus: Circulatory Status Goal This Shift: Pt will have map>65 Data: Pt has been of of pressors today, map>65. Not able to follow commands but does raise and extends arms overhead when not restrained, Action: Cont nutrition via tf. Slightly higher dose of propofol for sedation. Large hematoma left upper thigh about the same size. Complete blood count stable. Response: map>65 off of pressors. BEV BENNETT RN 07/01/2023 14:26 * Plan of Care - Lupe Patrick RN - 06/30/2023 1938 EDT Images from the original note were not included. Assumed care of Derrick Hobson at 1900, Patient admitted with Cardiogenic shock ([facility]) Patient intubated and sedated. Neurologically withdraws from pain Monitored cardiovascular, respiratory, neurological, GI and status. Strict I&O. Heart Rhythm: Afib in the 90s-120s Levo titrated off. Ventilator: 25 % and FiO2 5 peep SBT in AM. Pt became tachy in 120s-130s and SBT stopped after approx 30min, L upper thigh/groin hematoma observed; heparin gtt stopped; CT obtained. Meds per eMAR Tube feeds per flowsheet. Alston and rectal tube both patent and voiding. Interventions: Turned and repositioned q2 Mouth care and pt hygiene as doc. Call larson within reach. Safety and fall precautions maintained. Encouraged restful environment overnight. Intake/Output Summary (Last 24 hours) at 07/01/2023 0624 Last data filed at 07/01/2023 0600 Gross per 24 hour Intake 2339.02 ml Output 1090 ml Net 1249.02 ml Problem: Daily Care Plan Goals Goal: Care Plan Documentation Outcome: Ongoing Problem: Cardiac: Goal: Ability to maintain clinical measurements within defined limits will improve Outcome: Ongoing Problem: Respiratory: Goal: Ability to maintain a clear airway will improve Outcome: Ongoing * Plan of Care - Bev Bennett, ABEL - 06/30/2023 1633 EDT Problem: Daily Care Plan Goals Goal: Care Plan Documentation Outcome: Ongoing Flowsheets (Taken 06/30/2023 0900) Area of Focus: Circulatory Status Goal This Shift: Pt will have map>65 Data: Dialysis today, fluid removal 1.5l. Pt has required levophed at 3- 4mcg/min. Replaced cortrak-tf restarted. Low dose propofol=pt unable to follow commands, arms flail about randomly. Does have apain response, cough and gag positive. Action: Continue with levophed for circulatory support. Nutritional support via cortrak. Ps trials daily. Response: Tolerates dialysis with low dose levophed. BEV BENNETT RN 06/30/2023 16:34 * Plan of Radha - Parminder Maldonado RN - 06/30/2023 0825 EDT Dialysis Program Nursing Acute-Care Note Kt/V: 0.72 Net fluid removal 1800 Access: Temporary Catheter Access function: Lumens reversed Pre Post BP 108/80 136/94 Pulse 98 109 Temp 37.1 36.5 Weight 81.4kg 79.6kg Method of weight: Bed Treatment Comments/Issues/concerns Mental Status Pre: nonverbal, intubated, response to pain, opens eyes. Mental Status Post: nonverbal, intubated, response to pain, opens eyes. Pain score: Pre: 0. Post: 0 nonverbal; intubated Post dialysis system: Few strands No issue noted pre treatment, line reversed due to high AP. Attempted to increase UF goal per MD order, BP trended down, decrease UF goal to support BP. BP dropped to SBP 80s, UF turned off. MD and Primary RN aware. Started on norepi drip per MAY to support BP. Tolerated tx well, no issue noted post treatment. Repositioned Q2. Report given to ABEL Pablo Problem: HEMODIALYSIS Goal: Hemodialysis Care Needs Are Met Outcome: Ongoing * Plan of Care - Bev Bennett RN - 06/30/2023 0819 EDT Dialysis/CRRT Final Verification Completed with Osmani Watkins RN, Acute breaker table worker * Plan of Care - Lupe Patrick RN - 06/30/2023 0130 EDT Images from the original note were not included. Assumed care of Derrick Hobson at 1900, Patient admitted with Cardiogenic shock ([facility]) Patient intubated and sedated. Neurologically withdraws from pain in all four extremities and openseyes to voice w/o eye contact. Does not follow commands. Pos cough/gag/PERRLA. Monitored cardiovascular, respiratory, neurological, GI and status. Strict I&O. Heart Rhythm: afib in the 80s-low 100s. Hemodynamically WNL. Ventilator: 25% and FiO2 5 peep Prop paused at 0235 for SBT. Pt not following commands off sedation. HR and RR remained WNL while in SBT. Titrated propofol gtt per eMAR Heparin gtt per eMAR Amio gtt per eMAR Meds per eMAR Alston patent, 10-20cc/hr UO. Loose watery diarrhea, rectal tube placed. Interventions: Turned and repositioned q2 Mouth care and personal hygiene as needed. Call larson within reach. Safety and fall precautions maintained. Encouraged restful environment overnight. Intake/Output Summary (Last 24 hours) at 06/30/2023 0643 Last data filed at 06/30/2023 0600 Gross per 24 hour Intake 2650.71 ml Output 456 ml Net 2194.71 ml Problem: Daily Care Plan Goals Goal: Care Plan Documentation Outcome: Ongoing Problem: Cardiac: Goal: Ability to maintain clinical measurements within defined limits will improve Outcome: Ongoing Problem: Respiratory: Goal: Ability to maintain a clear airway will improve Outcome: Ongoing * Plan of Care - Socorro Galvez RN - 06/29/2023 0352 EDT Problem: Safety: Goal: Complications related to restraint use will be avoided or minimized Outcome: Ongoing Problem: Cardiac: Goal: Ability to maintain clinical measurements within defined limits will improve Outcome: Ongoing Problem: SKIN INTEGRITY Goal: Skin integrity will improve or be maintained Outcome: Ongoing Data: Assumed care of patient at 0700. Patient admitted to MICU with cardiogenic shock, multiorgan failure, intubated and sedated. Action: Paused propofol sedation at 0720- patient is unable to follow commands, opens eyes to speech, withdraws to pain in lower extremities. Patient became severely agitated & thrashing, so sedation restarted at 1220. Amio bolus given and amio gtt currently running at 0.5 mg/min. Heparin gtt running- most recent UFH therapeutic. Hemodialysis initiated at 1330. Several loose BMs throughout day. Response: VSS. Patient continues to be unable to follow commands when sedation is paused. Most recent BG 120. Afib heart rhythm. Withdraws to pain in all extremities. SOCORRO GALVEZ RN 06/29/2023 14:53 * Plan of Care - Derrick Maldonado RN - 06/29/2023 1342 EDT Problem: HEMODIALYSIS Goal: Hemodialysis Care Needs Are Met Outcome: Ongoing Goal: Dialysis Access Maintained Outcome: Ongoing Dialysis Program Nursing Acute-Care Note Kt/V: 0.62 Net fluid removal 1 LITER Access: Permanent Tunneled Catheter Access function: Satisfactory Pre Post BP 99/57 94/61 Pulse 95 96 Temp 36.5 36.2 Weight 80.2 79.1 Method of weight: Bed Treatment Comments/Issues/concerns Mental Status Pre: aox1 pt sedated Mental Status Post: aox1 pt sedated Pain score: Pre: 0. Post: 0 Post dialysis system: Few strands Pt tolerated tx well, uf net 1 liter removed, pt repositioned q2h, pt blood pressure soft throughout tx, primary rn updated post hd * Wound Care - Nakul Wong RN - 06/29/2023 1222 EDT Images from the original note were not included. Wound Care Consult Admit Date: 06/25/2023 Date of Service: 06/29/2023 Reason for Consult: coccyx is red and nonblanching per pt's nurse Consulted by: Halima Andino RN, Authorized by Charanjit Taylor MD HPI Derrick Hobson is a 68 y.o. male with limited medical records available but a PMH significant for AF, COPD, Hep C who presented for epistaxis, then complicated by hypotension, new severe systolic heart failure, AHRF, electrolyte derangements, and oliguria, consistent with cardiogenic shock, shock liver, and acute kidney failure of uncertain etiology at this time. Transferred to [facility] MICU for initiation of dialysis. Overall he is recovering from a mixed cardiogenic/distributive shock picture. He continues to be altered, now opening his eyes but not following commands. Plan to reassess after a longer period off sedation and use precedex/haldol as needed for agitation. MRI head obtained due to concern for anoxic/hypoglycemic injury, not yet read but without obvious signs of acute injury. Otherwise, liver functi on improving with downtrending LFTs. Hemodynamically stable off pressors and inotropes, indicating resolution of cardiogenic shock. Still with acute heart failure though with improved EF. Hypoxic respiratory failure improved, now intubated for sedation needs rather than respiratory support. Renal function has not yet returned; continuing IHD. Assessment Informal wound history - Patient admitted to [facility] on 06/25/23 at 1330. Non-blanching wound first charted on 06/27/23 1700, under 72 hours from admission date. Wound is an evolving DTI. Greeted Patient on ICU floor and introduced the Wound Care team. Examined bilateral heels which were pink and blanching. 3+ edema in bilateral feet, SCDs on. RN and RT at bedside. Rolled Patient to examine buttocks, cleaned small amount of stool off with wet wipes. Skin is deep red/purple at gluteal cleft, fading to red then pink on buttocks. Deep red/purple area non-blanching, red and pink areasblanching. Small skin tear to left side of gluteal cleft. Applied nutrishield to buttocks and then mepilex foam on sacral area. Repositioned Patient to rightside with wedges. Recommendations Pressure Injury Prevention Bundle Auralis w/ Skin IQ Apply moisture barrier cream every shift and with each incontinence Zinc Paste/[place] BID and then PRN with hygiene Wound Care will follow this patient. Please contact us via SecureChat ([facility] Wound Care Team) or reconsult for further concern. NAKUL WONG RN, BSN, [facility] 06/29/2023 12:38 * Plan of Care - Violeta Luna RN - 06/28/2023 1033 EDT Images from the original note were not included. Problem: Daily Care Plan Goals Goal: Care Plan Documentation Outcome: Ongoing Flowsheets (Taken 06/28/2023 0800) Area of Focus: Circulatory Status Goal This Shift: CRRT- hemodynamic stability Problem: Cardiac: Goal: Ability to maintain clinical measurements within defined limits will improve Outcome: Ongoing Problem: Respiratory: Goal: Ability to maintain a clear airway will improve Outcome: Ongoing Data: Patient admitted from OSH 06/24 for cardiogenic shock and multi organ failure. Intubated on minimal settings. [place] in place. CRRT running. EEG in place. Does not open eyes or follow commands. Withdraws from pain in all four extremities. PERRL. Strong cough and gag. Clear, dim lung sounds.Thick, trejo secretions from ETT. Afib on monitor. A-line in L groin. Normotensive, not on pressors. OG in place, TF infusing. Alston and flexi in place. Action: Telemetry Strip: pt in afib, no P wave, disregard placement on strip Assessments as seen in flow sheets Medicated per MAR PRN fentanyl given for pain/agitation Repositioned every two hours in bed Specialty bed ordered Oral care provided every 4 hours CRRT numbers done every hour while running. UF rate increased as tolerated. Per MD Young, net removal 100-150/hr. Sedation vacation to assess neuro status [place] catheter removed at bedside by MD Correa at 1130. No complications. Double lumen introducer left in place. MRI screening form filled out [employer] and Phuong riddle, contacted by this RN for help answering MRI screening questions CRRT taken down at approximately 1500. No plan to restart CRRT d/t stable BP. Plan to transition toHD once MRI complete. Pt down to MRI approximately 1600. Prior to transferring to MRI table, arterial line disconnected at stopcock and blood backing up into arterial line tubing. Connection checked and tightened, blood continuing to back up through tubing. Arterial line removed and pressure held on groin site. Sand bagplaced for duration of MRI. MRI complete. Propofol titrated for sedation during scan. See MAY. Patient moved to specialty bed. Flexiseal removed Response: Patient remains intubated and sedated. Neuro exam unchanged. EEG in place. Afib on monitor. Cuff pressures WNL. Propofol, heparin, tube feeds infusing. Alston in place, patient anuric. VIOLETA LUNA RN 06/28/2023 10:33 * Plan of Care - Haliam Andino RN - 06/27/2023 1330 EDT Problem: Cardiac: Goal: Ability to maintain clinical measurements within defined limits will improve Outcome: Met This Shift Problem: HEMODYNAMIC STATUS Goal: Patient Has Stable VS & Fluid Balance Outcome: Met This Shift Problem: Safety: Description: Module scope: For the purpose of this module, the definition for restraint comes from the Medicare and Medicaid Programs; Hospital Conditions of Participation. A restraint is any manual,physical, or mechanical device, material, or equip ... Goal: Complications related to restraint use will be avoided or minimized Outcome: Ongoing Problem: Daily Care Plan Goals Goal: Care Plan Documentation Outcome: Ongoing Problem: SKIN INTEGRITY Goal: Skin integrity will improve or be maintained Outcome: Ongoing Problem: Pressure Ulcer Prevention Goal: Absence Of Pressure Ulcer Outcome: Ongoing Problem: OXYGENATION/REPIRATORY FUNCTION Goal: Patient will achieve/maintain baseline respiratory rate/effort Description: Respiratory rate and effort will be within normal limits for the patient Outcome: Ongoing Problem: MECHANICAL VENTILATION Goal: Patient Will Maintain Patent Airway Outcome: Ongoing Data: Pt admitted from outside hospital intubated, with cardiogenic shock, encephalopathy, hypoglycemia, and multisystem organ failure, LFT elevated on arrival and in JOS, currently on CRRT, was on 2pressors this morning, to keep map 65, rhonchi BS, remains intubated 40/10, + spontanous breaths, +cough, w/d to pain, does not open eyes to painful stimuli, does not follow commands, con't eeg, FS 113, propofol off since 45 today for daily awakening, UHF .17, po4 1.8 Action: Plan: titrate pressors to map 65, , sx prn, turn q2 hr, FS q 6 hr, maintain TF as ordered, UHF q 6 hr, heparin bolus and rate increased per protocol, watch for bleeding, maintain CRRT, net loss goal 100cc/hr, CRRT stopped for bleaching, explain all care, pip bundle in place, bathed this morn ing, Nephrology attending aware of Po4 1.8 will adjust bath Response: Off levophed since 1017 this morning, dobutamine weaned to 2.5 mcg per MD orders, off propofol since 45, map > 65, oliguric 1445 CO CI and svr good, dobutamine off per Dr. Correa, tolerating 1 prbc no reaction HALIMA ANDINO RN 06/27/2023 13:30 * Plan of Care - Monica Lazcano RN - 06/26/2023 2356 EDT Nursing Progress Note Shift Summary: Intubated, sedated. CRRT running negative. Norepi, Dobutamine, Heparin continue. PA cath- trending cardiac data Q4H. Resp: 40% VCV PEEP 10, settings increased overnight. Copious thick trejo inline and brown/bloody oralsecretions. CV: AF 90-110s. Transiently tachycardic up to 160's that resolved w/o intervention. Norepi titratedto MAP > 65, see titrations. PA catheter- running cardiac numbers Q4H. Dobutamine off for a few hours per MICU team; restarted overnight then increased this AM for significantly worsening cool, pale/purple extremities. Heparin infusing post CRRT filter, UFH pending. Neuro: Pupils equal and reactive. Sedated on Propofol, unable to wean d/t periodic coughing episodes with subsequent desaturations and hypotension. PRN Fentanyl given with improvement. Moving head with nursing stim, withdrawing to pain x4. Strong cough. ID: Afebrile via esophageal probe. GI/: TF via OGT, advanced to goal. Incontinent of stool, x1 large BM overnight. Alston, nearly anuric. Lytes repleted per order. Skin: 2-3+ edema to extremities. Scattered bruising. Red blanching to coccyx, heels- Mepilex in place. T&R Q2H. Soc: No contact w/ RN. Plan: Continue CRRT, weaning sedation as able. Continues to require ICU care at this time. * Plan of Care - Salazar Saucedo - 06/26/2023 1307 EDT 06/26/23 1306 Discharge Delay Risk Assessment 1. Disease/Medical Condition 5 2. Hospitalization 2 4. Activities of daily living 1 5. Nursing status at home 5 6. Continued medical treatment required 1 Major Barrier day total 1-6 5 Risk for Delayed Discharge At Risk For Delayed Discharge 8. Social issues 4 Major Barrier day total 7-8 1 Risk for Delayed Discharge At Risk For Delayed Discharge Does the patient meet criteria to be escalated? Yes How was escalation determined? Bark Fitter discretion SASQ-Unable to assess Unable to assess-SASQ Intubated-will reassess Initial assessment status Initial assessment complete? (patient intubated and unable to contact emergency contacts at this time.) CM has worked to identify additional family supports and or contacts as patient is intubated and unable to participate in formal assessment at this time. CM contacted PCP office to confirm the only current contact is sister Tarah Coy at [phone]. CM Left urgent call back instructions via VM. [facility] Salazar Saucedo ASH PIT WORKER * Plan of Care - Lisa Vivar RN - 06/26/2023 0932 EDT Images from the original note were not included. Problem: Safety: Description: Module scope: For the purpose of this module, the definition for restraint comes from the Medicare and Medicaid Programs; Hospital Conditions of Participation. A restraint is any manual,physical, or mechanical device, material, or equip ... Goal: Complications related to restraint use will be avoided or minimized Outcome: Ongoing Problem: High Fall Risk: Goal: Patient will Remain Free of Falls due to Altered Mobility Outcome: Ongoing Problem: High Fall Risk: Goal: Patient Will Remain Free from Fall-Related Injury Outcome: Ongoing Problem: Daily Care Plan Goals Goal: Care Plan Documentation Outcome: Ongoing Problem: Cardiac: Goal: Ability to maintain clinical measurements within defined limits will improve Outcome: Ongoing Problem: Respiratory: Goal: Ability to maintain a clear airway will improve Outcome: Ongoing Problem: High Fall Risk: Goal: Patient will Remain Free of Falls due to Med. Side Effects Outcome: Ongoing Problem: High Fall Risk: Goal: Patient will Remain Free of Falls due to Altered Elimination Outcome: Ongoing Problem: High Fall Risk: Goal: Patient will Remain Free of Falls due to Confusion Outcome: Ongoing Problem: SKIN INTEGRITY Goal: Skin integrity will improve or be maintained Outcome: Ongoing Problem: Pressure Ulcer Prevention Goal: Absence Of Pressure Ulcer Outcome: Ongoing Data: Assumed care of patient at 0700. Report given by off-going Haley ROMAN. Patient is intubated and sedated on propofol. Patient has a heparin drip, dobutamine drip and norepinephrine drip going. Patient in receiving CRRT. Patient is getting EEG. Action: Monitored patient's vital signs. Medicated patient per EMAR. Titrated heparin, propofol dobutamine and norepinephrine per order. 2 units of FFP were given. Right IJ central line was removed. [place] Cath place in right IJ. Response: Patient vitals remain WDL. Hemodynamically stable. LISA VIVAR RN 06/26/2023 9:32 * Plan of Care - Bev Bennett RN - 06/25/2023 1834 EDT Problem: Daily Care Plan Goals Goal: Care Plan Documentation Outcome: Met This Shift Flowsheets (Taken 06/25/2023 1424) Area of Focus: Circulatory Status Goal This Shift: MAP>65 Data: PT HAS MAP>65, LEVO AT 5MCG/MIN. DIALYSIS CATH PLACED. Action: continue levophed. Dialysis tonight. Possible wean of vent tomorrow. Response: Still needs support with ventilation/levophed/dialysis BEV BENNETT RN 06/25/2023 18:34 * Plan of Care - Bev Bennett RN - 06/25/2023 1620 EDT FOUR EYES SKIN ASSESSMENT Four Eyes skin assessment was performed on admission to the unit by Bev Bennett RN and JAG roman. Patient has the following devices at the time of this assessment: NGT, ETT, BP cuff, Maria Luisa: tubing and board, O2 sat probe, Alston, SCD sleeves, and Restraints. Device related pressure injury present? No All skin intact verified by: Bev Bennett RN. Last Ziggy Score: (!) 8 Instructions: Add LDA for any identified wounds Add Medora image for any suspected PI or non surgical wounds Order wound consult if suspected PI identified If Ziggy is < or = to 16, initiate Pressure Injury Prevention Bundle ([id number]). 06/25/2023 16:20 documented in this encounter Plan of Treatment Scheduled Orders Name Type Priority Associated Diagnoses Orde r Schedule BASIC METABOLIC PANEL (BMP) Lab Routine JOS (acute kidney injury) (HCC-CMS) Acute on chronic systolic heart failure (HCC-CMS) Expected: 08/27/2023 (Approximate), Expires: 08/09/2024 Scheduled Referrals Name Type Priority Associated Diagnoses Order Schedule AMB CONS/FOLLOW UP PRIMARY CARE PHYSICIAN - EXTERNAL Outpatient Referral Routine/Next Available JOS (acute kidney injury) (HCC-CMS) Acute on chronic systolic heart failure (HCC-CMS) Atrial fibrillation, unspecified type (HCC-CMS) Expected: 08/27/2023 (Approximate), Expires: 08/09/2024 AMB CONS/FOLLOW UP CARDIOLOGY Outpatient Referral Routine/Next Available Acute on chronic systolic heart failure (HCC-CMS) Expected: 09/09/2023 (Approximate), Expires: 08/09/2024 documented as of this encounter Procedures Procedure Name Priority Date/Time Associated Diagnosis Comments ECG REPORT - SCANNED 09/03/2023 15:55 EDT ECG REPORT - SCANNED 09/03/2023 9:13 EDT ECG REPORT - SCANNED 08/23/2023 13:21 EDT TRANSFUSION RECORD - SCANNED 08/22/2023 14:26 EDT ECG REPORT - SCANNED 08/22/2023 14:26 EDT COMPLETE BLOOD COUNT Routine 08/20/2023 9:56 EDT NT PRO BNP Routine 08/20/2023 9:56 EDT MAGNESIUM Routine 08/20/2023 9:56 EDT BASIC METABOLIC PANEL (BMP) Routine 08/20/2023 9:56 EDT XR ABDOMEN 1 VIEW Routine 08/17/2023 15: 34 EDT POCT GLUCOSE, INTERFACED Routine 024 15:14 EDT URINE CHEMICAL (DIP) & SEDIMENT (MICRO) WITH REFLEX TO CULTURE Routine 08/17/2023 11:18 EDT BASIC METABOLIC PANEL (BMP) Routine 08/16/2023 9:10 EDT COMPLETE BLOOD COUNT Routine 08/15/2023 8:49 EDT MAGNESIUM Routine 08/15/2023 8:49 EDT BASIC METABOLIC PANEL (BMP) Routine 08/15/2023 8:49 EDT COMPLETE BLOOD COUNT Routine 08/13/2023 14:31 EDT MAGNESIUM Routine 08/13/2023 14:31 EDT BASIC METABOLIC PANEL (BMP) Routine 08/13/2023 14:31 EDT EKG 12-LEAD Routine 08/13/2023 14:09 EDT MAGNESIUM Routine 08/12/2023 8:53 EDT EKG 12-LEAD Routine 08/11/2023 22:35 EDT MAGNESIUM Routine 08/11/2023 10:42 EDT BASIC METABOLIC PANEL (BMP) Routine 08/11/2023 10:42 EDT MAGNESIUM Routine 08/10/2023 10:46 EDT BASIC METABOLIC PANEL (BMP) Routine 08/10/2023 10:46 EDT COMPLETE BLOOD COUNT Routine 08/09/2023 8:53 EDT MAGNESIUM Routine 08/09/2023 8:53 EDT BASIC METABOLIC PANEL (BMP) Routine 08/09/2023 8:53 EDT MAGNESIUM Routine 08/08/2023 10:09 EDT BASIC METABOLIC PANEL (BMP) Routine 08/08/2023 10:09 EDT BASIC METABOLIC PANEL (BMP) Routine 08/07/2023 15:46 EDT URINE CHEMICAL (DIP) & SEDIMENT (MICRO) WITH REFLEX TO CULTURE Routine 08/06/2023 14:56 EDT BACTERIAL CULTURE, URINE Today 024 14:56 EDT ECG REPORT - SCANNED 08/06/2023 14:46 EDT COMPLETE BLOOD COUNT AND DIFFERENTIAL Routine 08/06/2023 9:16 EDT MAGNESIUM Routine 08/06/2023 9:16 EDT BASIC METABOLIC PANEL (BMP) Routine 08/06/2023 9:16 EDT XR CHEST 2 VIEWS Routine 08/05/2023 12:4 4 EDT SARS COV2, FLU A/B, RSV DETECT BY PCR Routine 08/05/2023 12:09 EDT EXPANDED RESPIRATORY VIRAL PANEL, PCR (DOES NOT INCLUDE INFLUENZA OR RSV) Routine 08/05/2023 12:09 EDT COMPLETE BLOOD COUNT AND DIFFERENTIAL Routine 08/05/2023 8:25 EDT BACTERIAL CULTURE, BLOOD Routine 024 6:28 EDT BACTERIAL CULTURE, BLOOD Routine 024 6:28 EDT HEPARIN LEVEL - UNFRACTIONATED HEPARIN STAT 08/05/2023 6:27 EDT C REACTIVE PROTEIN Add-On 08/05/2023 6: 27 EDT NT PRO BNP Add-On 08/05/2023 6:27 EDT MAGNESIUM Add-On 08/05/2023 6:27 EDT HEPATIC FUNCTION PANEL (ALB,ALK PHOS,ALT,AST,DBIL,TOT BETO,TOT PROT) Add-On 08/05/2023 6:27 EDT BASIC METABOLIC PANEL (BMP) Routine 08/05/2023 6:27 EDT HEPARIN LEVEL - UNFRACTIONATED HEPARIN STAT 08/04/2023 22:49 EDT MR HEAD WO CONTRAST STAT 08/04/2023 2 0:47 EDT BASIC METABOLIC PANEL (BMP) Routine 08/04/2023 9:[address] ANGIO HEAD NECK STAT 08/04/2023 9: 03 EDT POCT GLUCOSE, INTERFACED Routine 024 8:[address] ANGIO ABDOMEN PELVIS Routine 08/03/19 24 22:15 EDT US LOWER VENOUS DUPLEX (DVT) BILATERAL Routine 08/03/2023 15:53 EDT NT PRO BNP Add-On 08/03/2023 12:09 EDT BASIC METABOLIC PANEL (BMP) Routine 08/03/2023 12:09 EDT COMPLETE BLOOD COUNT Routine 08/02/2023 5:44 EDT MAGNESIUM Routine 08/02/2023 5:44 EDT BASIC METABOLIC PANEL (BMP) Timed 08/02/2023 5:44 EDT URINE CHEMICAL (DIP) & SEDIMENT (MICRO) WITH REFLEX TO CULTURE Routine 08/01/2023 11:37 EDT BACTERIAL CULTURE, URINE Today 024 11:37 EDT US SCROTUM WITH LIMITED DUPLEX Routine 07/31/2023 10:10 EDT COMPLETE BLOOD COUNT Routine 07/30/2023 6:24 EDT MAGNESIUM Routine 07/30/2023 6:24 EDT BASIC METABOLIC PANEL (BMP) Timed 07/30/2023 6:24 EDT COMPLETE BLOOD COUNT Routine 07/28/2023 6:00 EDT MAGNESIUM Routine 07/28/2023 5:59 EDT BASIC METABOLIC PANEL (BMP) Timed 07/28/2023 5:59 EDT ECG REPORT - SCANNED 07/27/2023 13:27 EDT COMPLETE BLOOD COUNT Routine 07/27/2023 6:35 EDT MAGNESIUM Routine 07/27/2023 6:35 EDT BASIC METABOLIC PANEL (BMP) Timed 07/27/2023 6:35 EDT COMPLETE BLOOD COUNT Routine 07/26/2023 5:55 EDT MAGNESIUM Routine 07/26/2023 5:55 EDT HEPATIC FUNCTION PANEL (ALB,ALK PHOS,ALT,AST,DBIL,TOT BETO,TOT PROT) Add-On 07/26/2023 5:55 EDT BASIC METABOLIC PANEL (BMP) Timed 07/26/2023 5:55 EDT COMPLETE BLOOD COUNT STAT 07/25/2023 18:54 EDT PTT Routine 07/25/2023 8:55 EDT PROTIME Routine 07/25/2023 8:55 EDT US EXTREMITY SOFT TISSUE OR MSK Routine 07/25/2023 8:14 EDT COMPLETE BLOOD COUNT Routine 07/25/2023 6:55 EDT MAGNESIUM Routine 07/25/2023 6:55 EDT BASIC METABOLIC PANEL (BMP) Timed 07/25/2023 6:55 EDT ECG REPORT - SCANNED 07/24/2023 12:58 EDT TYPE AND SCREEN Routine 07/24/2023 5:40 EDT MAGNESIUM Routine 07/24/2023 5:40 EDT BASIC METABOLIC PANEL (BMP) Timed 07/24/2023 5:40 EDT COMPLETE BLOOD COUNT Routine 07/24/2023 5:39 EDT CBC HEMOLYSIS REVIEW Today 07/23/2023 5:15 EDT TRANSFERRIN SATURATION Add-On 5:15 EDT PROFILE IRON STUDIES (INCLUDES IRON, IBC, AND FERRITIN) Add-On 07/23/2023 5:15 EDT RETICULOCYTE COUNT Add-On 07/23/2023 5: 15 EDT COMPLETE BLOOD COUNT Routine 07/23/2023 5:15 EDT MAGNESIUM Routine 07/23/2023 5:15 EDT FOLATE Add-On 07/23/2023 5:15 EDT FERRITIN Add-On 07/23/2023 5:15 EDT VITAMIN B12 Add-On 07/23/2023 5:15 EDT BASIC METABOLIC PANEL (BMP) Timed 07/23/2023 5:15 EDT COMPLETE BLOOD COUNT Routine 07/22/2023 4:26 EDT MAGNESIUM Routine 07/22/2023 4:26 EDT BASIC METABOLIC PANEL (BMP) Timed 07/22/2023 4:26 EDT EKG 12-LEAD STAT 07/21/2023 21:48 EDT COMPLETE BLOOD COUNT Routine 07/21/2023 6:16 EDT MAGNESIUM Routine 07/21/2023 6:16 EDT BASIC METABOLIC PANEL (BMP) Timed 07/21/2023 6:16 EDT LACTIC ACID Timed 07/20/2023 15:01 EDT EKG 12-LEAD STAT 07/20/2023 11:07 EDT TROPONIN I Add-On 07/20/2023 11:05 EDT LACTIC ACID STAT 07/20/2023 11:05 EDT POCT GLUCOSE, INTERFACED Routine 024 10:53 EDT COMPLETE BLOOD COUNT Routine 07/20/2023 6:33 EDT MAGNESIUM Routine 07/20/2023 6:32 EDT BASIC METABOLIC PANEL (BMP) Timed 07/20/2023 6:32 EDT NM CARD SPECT PHARM MULT STUDIES COMPLETE Routine 07/19/2023 11:08 EDT TROPONIN I STAT 07/19/2023 3:18 EDT CBC HEMOLYSIS REVIEW Today 07/19/2023 2:57 EDT COMPLETE BLOOD COUNT Routine 07/19/2023 2:57 EDT MAGNESIUM Routine 07/19/2023 2:57 EDT BASIC METABOLIC PANEL (BMP) Routine 07/19/2023 2:57 EDT EKG 12-LEAD 07/18/2023 23:45 EDT PROTIME Routine 07/18/2023 4:38 EDT PHOSPHORUS Routine 07/18/2023 4:38 EDT MAGNESIUM Routine 07/18/2023 4:38 EDT BASIC METABOLIC PANEL (BMP) Routine 07/18/2023 4:38 EDT COMPLETE BLOOD COUNT Routine 07/18/2023 4:37 EDT POCT GLUCOSE, INTERFACED Routine 024 13:30 EDT TRANSTHORACIC ECHO (TTE) LIMITED Routine 07/17/2023 11:07 EDT PROTIME Routine 07/17/2023 5:27 EDT PHOSPHORUS Routine 07/17/2023 5:27 EDT MAGNESIUM Routine 07/17/2023 5:27 EDT HEPATIC FUNCTION PANEL (ALB,ALK PHOS,ALT,AST,DBIL,TOT BETO,TOT PROT) Add-On 07/17/2023 5:27 EDT BASIC METABOLIC PANEL (BMP) Routine 07/17/2023 5:27 EDT COMPLETE BLOOD COUNT Routine 07/17/2023 5:26 EDT PROTIME Routine 07/16/2023 5:14 EDT COMPLETE BLOOD COUNT Routine 07/16/2023 5:14 EDT PHOSPHORUS Routine 07/16/2023 5:14 EDT MAGNESIUM Routine 07/16/2023 5:14 EDT BASIC METABOLIC PANEL (BMP) Routine 07/16/2023 5:14 EDT ECG REPORT - SCANNED 07/15/2023 20:10 EDT PROTIME Routine 07/15/2023 3:49 EDT COMPLETE BLOOD COUNT Routine 07/15/2023 3:49 EDT PHOSPHORUS Routine 07/15/2023 3:49 EDT MAGNESIUM Routine 07/15/2023 3:49 EDT BASIC METABOLIC PANEL (BMP) Routine 07/15/2023 3:49 EDT LDH Add-On 07/14/2023 14:48 EDT HAPTOGLOBIN Add-On 07/14/2023 14:48 EDT ELECTROLYTES STAT 07/14/2023 14:48 EDT CBC HEMOLYSIS REVIEW Today 07/14/2023 14:47 EDT RETICULOCYTE COUNT Add-On 07/14/2023 14 :47 EDT COMPLETE BLOOD COUNT STAT 07/14/2023 14:47 EDT PROTIME Routine 07/14/2023 5:31 EDT COMPLETE BLOOD COUNT Routine 07/14/2023 5:30 EDT PHOSPHORUS Routine 07/14/2023 5:29 EDT MAGNESIUM Routine 07/14/2023 5:29 EDT HEPATIC FUNCTION PANEL (ALB,ALK PHOS,ALT,AST,DBIL,TOT BETO,TOT PROT) Add-On 07/14/2023 5:29 EDT BASIC METABOLIC PANEL (BMP) Routine 07/14/2023 5:29 EDT ELECTROLYTES Routine 07/13/2023 18:07 EDT POCT GLUCOSE, INTERFACED Routine 024 12:18 EDT HOLD SST Routine 07/13/2023 7:03 EDT PROTIME Routine 07/13/2023 6:42 EDT PHOSPHORUS Routine 07/13/2023 6:42 EDT MAGNESIUM Routine 07/13/2023 6:42 EDT BASIC METABOLIC PANEL (BMP) Routine 07/13/2023 6:42 EDT COMPLETE BLOOD COUNT Routine 07/13/2023 6:40 EDT POCT GLUCOSE, INTERFACED Routine 024 15:42 EDT ELECTROLYTES STAT 07/12/2023 15:34 EDT POCT GLUCOSE, INTERFACED Routine 024 5:58 EDT PROTIME Routine 07/12/2023 5:04 EDT COMPLETE BLOOD COUNT Routine 07/12/2023 5:04 EDT PHOSPHORUS Routine 07/12/2023 5:04 EDT MAGNESIUM Routine 07/12/2023 5:04 EDT BASIC METABOLIC PANEL (BMP) Routine 07/12/2023 5:04 EDT POCT GLUCOSE, INTERFACED Routine 024 0:40 EDT ELECTROLYTES Routine 07/11/2023 22:55 EDT ELECTROLYTES Routine 07/11/2023 18:20 EDT POCT GLUCOSE, INTERFACED Routine 024 18:02 EDT ELECTROLYTES STAT 07/11/2023 13:45 EDT POCT GLUCOSE, INTERFACED Routine 024 12:08 EDT SODIUM, URINE RANDOM Routine 07/11/2023 11:08 EDT OSMOLALITY, URINE Routine 07/11/2023 11: 08 EDT ELECTROLYTES Routine 07/11/2023 11:08 EDT POCT GLUCOSE, INTERFACED Routine 024 10:05 EDT POCT GLUCOSE, INTERFACED Routine 024 5:56 EDT PROTIME Routine 07/11/2023 4:27 EDT COMPLETE BLOOD COUNT Routine 07/11/2023 4:27 EDT OSMOLALITY Add-On 07/11/2023 4:27 EDT PHOSPHORUS Routine 07/11/2023 4:27 EDT MAGNESIUM Routine 07/11/2023 4:27 EDT BASIC METABOLIC PANEL (BMP) Routine 07/11/2023 4:27 EDT POCT GLUCOSE, INTERFACED Routine 024 0:16 EDT WOUND EVALUATION AND TREAT Routine 07/10/2023 22:47 EDT COMPLETE BLOOD COUNT STAT 07/10/2023 21:56 EDT XR FEEDING TUBE PLACEMENT Routine 07/10/2023 20:45 EDT POCT GLUCOSE, INTERFACED Routine 024 19:26 EDT ELECTROLYTES Routine 07/10/2023 17:53 EDT POCT GLUCOSE, INTERFACED Routine 024 13:28 EDT C. DIFFICILE PCR Routine 07/10/2023 12:0 5 EDT XR CHEST PORTABLE 1 VIEW Routine 11:58 EDT SLIDE REQUEST Today 07/10/2023 5:17 EDT PROTIME Routine 07/10/2023 5:17 EDT COMPLETE BLOOD COUNT Routine 07/10/2023 5:17 EDT POCT GLUCOSE, INTERFACED Routine 024 5:17 EDT PHOSPHORUS Routine 07/10/2023 5:17 EDT MAGNESIUM Routine 07/10/2023 5:17 EDT BASIC METABOLIC PANEL (BMP) Add-On 07/10/2023 5:17 EDT POCT GLUCOSE, INTERFACED Routine 024 23:48 EDT POCT GLUCOSE, INTERFACED Routine 024 18:24 EDT POCT GLUCOSE, INTERFACED Routine 024 13:49 EDT POCT GLUCOSE, INTERFACED Routine 024 12:25 EDT ECG REPORT - SCANNED 07/09/2023 6:51 EDT POCT GLUCOSE, INTERFACED Routine 024 6:06 EDT SLIDE REQUEST Today 07/09/2023 5:23 EDT PROTIME Routine 07/09/2023 5:23 EDT COMPLETE BLOOD COUNT Routine 07/09/2023 5:23 EDT PHOSPHORUS Routine 07/09/2023 5:23 EDT MAGNESIUM Routine 07/09/2023 5:23 EDT BASIC METABOLIC PANEL (BMP) Add-On 07/09/2023 5:23 EDT POCT GLUCOSE, INTERFACED Routine 024 23:26 EDT LACTIC ACID Routine 07/08/2023 21:00 EDT POCT GLUCOSE, INTERFACED Routine 024 18:34 EDT ELECTROLYTES Timed 07/08/2023 17:16 EDT POCT GLUCOSE, INTERFACED Routine 024 14:21 EDT LACTIC ACID Routine 07/08/2023 11:46 EDT POCT GLUCOSE, INTERFACED Routine 024 6:48 EDT CBC HEMOLYSIS REVIEW Today 07/08/2023 6:32 EDT COMPLETE BLOOD COUNT Routine 07/08/2023 6:32 EDT PROTIME Routine 07/08/2023 6:31 EDT PHOSPHORUS Routine 07/08/2023 6:31 EDT MAGNESIUM Routine 07/08/2023 6:31 EDT BASIC METABOLIC PANEL (BMP) Add-On 07/08/2023 6:31 EDT POCT GLUCOSE, INTERFACED Routine 024 23:45 EDT TYPE AND SCREEN Routine 07/07/2023 20:03 EDT POCT GLUCOSE, INTERFACED Routine 024 18:08 EDT US LOWER VENOUS DUPLEX (DVT) RIGHT Routine 07/07/2023 15:41 EDT US EXTREMITY SOFT TISSUE OR MSK Routine 07/07/2023 15:33 EDT EKG 12-LEAD STAT 07/07/2023 12:44 EDT POCT GLUCOSE, INTERFACED Routine 024 12:08 EDT POCT GLUCOSE, INTERFACED Routine 024 5:58 EDT COMPLETE BLOOD COUNT Routine 07/07/2023 5:55 EDT PROTIME Routine 07/07/2023 5:54 EDT PHOSPHORUS Routine 07/07/2023 5:54 EDT NT PRO BNP Add-On 07/07/2023 5:54 EDT MAGNESIUM Routine 07/07/2023 5:54 EDT COMPREHENSIVE METABOLIC PANEL (CMP) Routine 07/07/2023 5:54 EDT POCT GLUCOSE, INTERFACED Routine 23:50 EDT US ABDOMEN LIMITED Routine 07/06/2023 19 :59 EDT POCT GLUCOSE, INTERFACED Routine 18:13 EDT BACTERIAL CULTURE, URINE Routine 18:03 EDT POCT GLUCOSE, INTERFACED Routine 16:12 EDT XR CHEST PORTABLE 1 VIEW STAT 15:49 EDT BLOOD GASES, VENOUS STAT 07/06/2023 1 5:29 EDT LACTIC ACID STAT 07/06/2023 15:29 EDT EKG 12-LEAD STAT 07/06/2023 15:13 EDT NEBULIZER TX INTERMITTENT Routine 07/06/2023 14:58 EDT BACTERIAL CULTURE, BLOOD Routine 11:55 EDT BLOOD CULTURE- FOR DIALYSIS USE ONLY Routine 07/06/2023 11:55 EDT PROCALCITONIN Add-On 07/06/2023 9:31 EDT COMPREHENSIVE METABOLIC PANEL (CMP) STAT 07/06/2023 9:31 EDT BLOOD GASES, VENOUS Routine 07/06/2023 8 :22 EDT PROTIME Routine 07/06/2023 8:22 EDT PHOSPHORUS Routine 07/06/2023 8:22 EDT MAGNESIUM Routine 07/06/2023 8:22 EDT DIFFERENTIAL Add-On 07/06/2023 8:21 EDT COMPLETE BLOOD COUNT Routine 07/06/2023 8:21 EDT HEMODIALYSIS Routine 07/06/2023 8:14 EDT JOS (acute kidney injury) ([facility]) POCT GLUCOSE, INTERFACED Routine 024 23:58 EDT POCT GLUCOSE, INTERFACED Routine 024 18:14 EDT POCT BLOOD GAS, EG6 I-STAT Routine 07/05/2023 14:52 EDT POCT GLUCOSE, INTERFACED Routine 024 13:01 EDT PROTIME Routine 07/05/2023 4:53 EDT COMPLETE BLOOD COUNT Routine 07/05/2023 4:53 EDT PHOSPHORUS Routine 07/05/2023 4:53 EDT MAGNESIUM Routine 07/05/2023 4:53 EDT COMPREHENSIVE METABOLIC PANEL (CMP) Routine 07/05/2023 4:53 EDT POCT GLUCOSE, INTERFACED Routine 024 0:39 EDT HGB STAT 07/04/2023 21:57 EDT POCT GLUCOSE, INTERFACED Routine 024 19:15 EDT HEMODIALYSIS Routine 07/04/2023 9:26 EDT JOS (acute kidney injury) ([facility]) POCT GLUCOSE, INTERFACED Routine 024 5:12 EDT PROTIME Routine 07/04/2023 5:09 EDT COMPLETE BLOOD COUNT Routine 07/04/2023 5:09 EDT BILIRUBIN DIRECT/INDIRECT Add-On 07/04/2023 5:09 EDT PHOSPHORUS Routine 07/04/2023 5:09 EDT MAGNESIUM Routine 07/04/2023 5:09 EDT COMPREHENSIVE METABOLIC PANEL (CMP) Routine 07/04/2023 5:09 EDT POCT GLUCOSE, INTERFACED Routine 024 0:25 EDT C. DIFFICILE PCR Routine 07/03/2023 18:3 5 EDT POCT GLUCOSE, INTERFACED Routine 024 17:30 EDT POCT GLUCOSE, INTERFACED Routine 024 14:43 EDT HGB STAT 07/03/2023 14:40 EDT HEMATOCRIT STAT 07/03/2023 14:40 EDT EXTUBATION Routine 07/03/2023 12:39 EDT POCT GLUCOSE, INTERFACED Routine 024 12:06 EDT POCT GLUCOSE, INTERFACED Routine 024 10:55 EDT POCT GLUCOSE, INTERFACED Routine 024 9:43 EDT POCT GLUCOSE, INTERFACED Routine 024 9:29 EDT POCT GLUCOSE, INTERFACED Routine 024 9:22 EDT MRSA PCR Routine 07/03/2023 3:42 EDT PROTIME Routine 07/03/2023 3:42 EDT COMPLETE BLOOD COUNT Routine 07/03/2023 3:42 EDT PHOSPHORUS Routine 07/03/2023 3:42 EDT MAGNESIUM Routine 07/03/2023 3:42 EDT COMPREHENSIVE METABOLIC PANEL (CMP) Routine 07/03/2023 3:42 EDT POCT GLUCOSE, INTERFACED Routine 024 2:34 EDT POCT GLUCOSE, INTERFACED Routine 024 23:40 EDT POCT GLUCOSE, INTERFACED Routine 024 20:02 EDT XR CHEST PORTABLE LINE PLACEMENT STAT 07/02/2023 18:39 EDT POCT GLUCOSE, INTERFACED Routine 024 18:18 EDT POCT GLUCOSE, INTERFACED Routine 024 16:17 EDT COMPLETE BLOOD COUNT Routine 07/02/2023 16:14 EDT AMMONIA Routine 07/02/2023 16:14 EDT POCT GLUCOSE, INTERFACED Routine 024 14:10 EDT POCT GLUCOSE, INTERFACED Routine 024 12:46 EDT POCT GLUCOSE, INTERFACED Routine 024 11:49 EDT POCT GLUCOSE, INTERFACED Routine 024 11:05 EDT HEMODIALYSIS Routine 07/02/2023 11:02 EDT JOS (acute kidney injury) ([facility]) POCT GLUCOSE, INTERFACED Routine 024 9:20 EDT POCT GLUCOSE, INTERFACED Routine 024 8:50 EDT POCT GLUCOSE, INTERFACED Routine 024 8:06 EDT POCT GLUCOSE, INTERFACED Routine 024 6:57 EDT POCT GLUCOSE, INTERFACED Routine 024 6:23 EDT COMPLETE BLOOD COUNT AND DIFFERENTIAL Routine 07/02/2023 4:23 EDT PHOSPHORUS Add-On 07/02/2023 4:23 EDT MAGNESIUM Routine 07/02/2023 4:23 EDT CORTISOL Add-On 07/02/2023 4:23 EDT COMPREHENSIVE METABOLIC PANEL (CMP) Routine 07/02/2023 4:23 EDT POCT GLUCOSE, INTERFACED Routine 024 3:13 EDT POCT GLUCOSE, INTERFACED Routine 024 2:27 EDT POCT GLUCOSE, INTERFACED Routine 024 2:24 EDT POCT GLUCOSE, INTERFACED Routine 024 2:06 EDT POCT GLUCOSE, INTERFACED Routine 024 2:00 EDT TRANSFUSE RED BLOOD CELLS Routine 07/02/2023 0:00 EDT TYPE AND SCREEN Routine 07/01/2023 22:45 EDT PREPARE RED BLOOD CELLS Routine 07/01/19 22:17 EDT COMPLETE BLOOD COUNT Routine 07/01/2023 21:12 EDT POCT GLUCOSE, INTERFACED Routine 024 17:42 EDT POCT GLUCOSE, INTERFACED Routine 024 17:00 EDT COMPLETE BLOOD COUNT Routine 07/01/2023 15:52 EDT POCT GLUCOSE, INTERFACED Routine 024 12:25 EDT COMPLETE BLOOD COUNT Routine 07/01/2023 10:09 EDT POCT GLUCOSE, INTERFACED Routine 024 5:49 EDT PROTIME Routine 07/01/2023 3:00 EDT COMPLETE BLOOD COUNT AND DIFFERENTIAL Routine 07/01/2023 2:55 EDT MAGNESIUM Routine 07/01/2023 2:55 EDT COMPREHENSIVE METABOLIC PANEL (CMP) Routine 07/01/2023 2:[address] ANGIO LOWER EXTREMITY LEFT STAT 07/01/2023 1:12 EDT POCT GLUCOSE, INTERFACED Routine 024 0:12 EDT COMPLETE BLOOD COUNT STAT 06/30/2023 22:43 EDT POCT GLUCOSE, INTERFACED Routine 024 17:52 EDT POCT GLUCOSE, INTERFACED Routine 024 14:52 EDT XR FEEDING TUBE PLACEMENT Routine 06/30/2023 13:06 EDT POCT GLUCOSE, INTERFACED Routine 024 10:04 EDT HEPARIN LEVEL - UNFRACTIONATED HEPARIN STAT 06/30/2023 10:02 EDT POCT GLUCOSE, INTERFACED Routine 024 5:56 EDT HEMODIALYSIS Routine 06/30/2023 5:43 EDT JOS (acute kidney injury) ([facility]) DIFFERENTIAL, AUTOMATED MANUAL Today 06/30/2023 2:34 EDT PROTIME Routine 06/30/2023 2:34 EDT HEPARIN LEVEL - UNFRACTIONATED HEPARIN STAT 06/30/2023 2:34 EDT COMPLETE BLOOD COUNT AND DIFFERENTIAL Routine 06/30/2023 2:34 EDT TRIGLYCERIDE Add-On 06/30/2023 2:34 EDT MAGNESIUM Routine 06/30/2023 2:34 EDT COMPREHENSIVE METABOLIC PANEL (CMP) Routine 06/30/2023 2:34 EDT POCT GLUCOSE, INTERFACED Routine 024 2:19 EDT POCT GLUCOSE, INTERFACED Routine 024 22:08 EDT MAGNESIUM Routine 06/29/2023 17:52 EDT ELECTROLYTES Routine 06/29/2023 17:52 EDT POCT GLUCOSE, INTERFACED Routine 024 17:28 EDT HEMODIALYSIS Routine 06/29/2023 12:58 EDT JOS (acute kidney injury) ([facility]) POCT GLUCOSE, INTERFACED Routine 024 12:41 EDT HEPARIN LEVEL - UNFRACTIONATED HEPARIN STAT 06/29/2023 12:37 EDT POCT GLUCOSE, INTERFACED Routine 024 9:53 EDT US UPPER VENOUS DUPLEX (DVT) BILATERAL Routine 06/29/2023 9:11 EDT POCT GLUCOSE, INTERFACED Routine 024 5:58 EDT HEPARIN LEVEL - UNFRACTIONATED HEPARIN STAT 06/29/2023 5:34 EDT POCT GLUCOSE, INTERFACED Routine 024 5:33 EDT DIFFERENTIAL, AUTOMATED MANUAL Today 06/29/2023 4:41 EDT PROTIME Routine 06/29/2023 4:41 EDT COMPLETE BLOOD COUNT AND DIFFERENTIAL Routine 06/29/2023 4:41 EDT MAGNESIUM Routine 06/29/2023 4:41 EDT COMPREHENSIVE METABOLIC PANEL (CMP) Routine 06/29/2023 4:41 EDT POCT GLUCOSE, INTERFACED Routine 024 4:18 EDT XR FEEDING TUBE PLACEMENT Routine 06/29/2023 0:22 EDT HEPARIN LEVEL - UNFRACTIONATED HEPARIN STAT 06/28/2023 23:49 EDT PHOSPHORUS Add-On 06/28/2023 23:48 EDT MAGNESIUM Routine 06/28/2023 23:48 EDT ELECTROLYTES Routine 06/28/2023 23:48 EDT POCT GLUCOSE, INTERFACED Routine 024 23:46 EDT POCT GLUCOSE, INTERFACED Routine 024 23:18 EDT POCT GLUCOSE, INTERFACED Routine 024 22:52 EDT POCT GLUCOSE, INTERFACED Routine 024 18:05 EDT TSH Add-On 06/28/2023 17:52 EDT MAGNESIUM Routine 06/28/2023 17:52 EDT ELECTROLYTES Routine 06/28/2023 17:52 EDT MR HEAD WO CONTRAST Routine 06/28/2023 1 7:21 EDT POCT GLUCOSE, INTERFACED Routine 024 12:00 EDT MAGNESIUM Add-On 06/28/2023 11:57 EDT ELECTROLYTES Routine 06/28/2023 11:57 EDT WOUND EVALUATION AND TREAT Today 06/28/2023 10:59 EDT TRANSTHORACIC ECHO (TTE) LIMITED Routine 06/28/2023 9:28 EDT POCT GLUCOSE, INTERFACED Routine 024 5:39 EDT HN LAB CBC SMEAR REVIEW Today 06/28/19 5:36 EDT HCV RNA DETECT QUANT Today 06/28/2023 5:36 EDT DIALYSIS HEPATITIS- DIALYSIS USE ONLY Add-On 06/28/2023 5:36 EDT PROTIME Routine 06/28/2023 5:36 EDT HEPARIN LEVEL - UNFRACTIONATED HEPARIN STAT 06/28/2023 5:36 EDT COMPLETE BLOOD COUNT AND DIFFERENTIAL Routine 06/28/2023 5:36 EDT PHOSPHORUS Routine 06/28/2023 5:36 EDT MAGNESIUM Routine 06/28/2023 5:36 EDT COMPREHENSIVE METABOLIC PANEL (CMP) Routine 06/28/2023 5:36 EDT HEPARIN LEVEL - UNFRACTIONATED HEPARIN STAT 06/27/2023 23:58 EDT POCT GLUCOSE, INTERFACED Routine 024 23:58 EDT ELECTROLYTES Routine 06/27/2023 23:58 EDT POCT GLUCOSE, INTERFACED Routine 024 18:58 EDT HEPARIN LEVEL - UNFRACTIONATED HEPARIN STAT 06/27/2023 18:57 EDT PHOSPHORUS Routine 06/27/2023 18:57 EDT ELECTROLYTES Routine 06/27/2023 18:57 EDT POCT US ED CARDIAC 06/27/2023 18 :23 EDT BLOOD GASES, VENOUS Routine 06/27/2023 1 5:02 EDT TRANSFUSE RED BLOOD CELLS Routine 06/27/2023 12:34 EDT POCT GLUCOSE, INTERFACED Routine 024 12:15 EDT HEPARIN LEVEL - UNFRACTIONATED HEPARIN STAT 06/27/2023 12:12 EDT CITRAPURE L3 Routine 06/27/2023 11:39 EDT IP CRRT HEPARIN Routine 06/27/2023 11:39 EDT IP ADD SODIUM PHOSPHATE Routine 06/27/19 11:39 EDT CONTINUOUS RENAL REPLACEMENT (CRRT) SET-UP Routine 06/27/2023 11:39 EDT PREPARE RED BLOOD CELLS Routine 06/27/19 11:12 EDT BLOOD GASES, VENOUS Routine 06/27/2023 9 :39 EDT ECG REPORT - SCANNED 06/27/2023 8:46 EDT HEPARIN LEVEL - UNFRACTIONATED HEPARIN STAT 06/27/2023 6:53 EDT POCT BLOOD GAS, EG6 I-STAT Routine 06/27/2023 4:31 EDT POCT GLUCOSE, INTERFACED Routine 024 4:06 EDT LACTIC ACID Routine 06/27/2023 4:03 EDT PTT Routine 06/27/2023 4:03 EDT PROTIME Routine 06/27/2023 4:03 EDT COMPLETE BLOOD COUNT AND DIFFERENTIAL Routine 06/27/2023 4:03 EDT TRIGLYCERIDE Routine 06/27/2023 4:03 EDT PHOSPHORUS Routine 06/27/2023 4:03 EDT MAGNESIUM Routine 06/27/2023 4:03 EDT COMPREHENSIVE METABOLIC PANEL (CMP) Routine 06/27/2023 4:03 EDT HEPARIN LEVEL - UNFRACTIONATED HEPARIN STAT 06/26/2023 23:35 EDT MAGNESIUM Routine 06/26/2023 21:43 EDT BASIC METABOLIC PANEL (BMP) Routine 06/26/2023 21:43 EDT POCT GLUCOSE, INTERFACED Routine 024 18:55 EDT HEPARIN LEVEL - UNFRACTIONATED HEPARIN STAT 06/26/2023 18:52 EDT XR CHEST PORTABLE LINE PLACEMENT Routine 06/26/2023 18:25 EDT POCT US ED GUIDANCE CVC 06/26/19 15:58 EDT BACTERIAL CULTURE/SMEAR, RESPIRATORY Routine 06/26/2023 15:27 EDT HCV RNA DETECT QUANT Today 06/26/2023 14:06 EDT HEPATITIS B CORE ANTIBODY, IGM (ANTI-HBC, IGM), SERUM Today 06/26/2023 14:06 EDT LACTIC ACID Routine 06/26/2023 14:06 EDT TRANSFUSE PLASMA Routine 06/26/2023 13:4 5 EDT TRANSFUSE PLASMA Routine 06/26/2023 12:3 0 EDT THROMBELASTOGRAPH Routine 06/26/2023 11: 42 EDT DIC (disseminated intravascular coagulation) ([facility]) HEPARIN LEVEL - UNFRACTIONATED HEPARIN STAT 06/26/2023 11:42 EDT POCT GLUCOSE, INTERFACED Routine 024 11:41 EDT US LOWER VENOUS DUPLEX (DVT) BILATERAL Routine 06/26/2023 11:40 EDT PREPARE PLASMA Routine 06/26/2023 11:22 EDT PREPARE PLASMA Routine 06/26/2023 11:22 EDT BLOOD GASES, VENOUS Routine 06/26/2023 1 0:05 EDT MRSA PCR Routine 06/26/2023 10:05 EDT PTT Routine 06/26/2023 10:05 EDT FIBRINOGEN Routine 06/26/2023 10:05 EDT D-DIMER Routine 06/26/2023 10:05 EDT POCT GLUCOSE, INTERFACED Routine 024 5:49 EDT BLOOD GASES, VENOUS Routine 06/26/2023 5 :47 EDT LACTIC ACID Routine 06/26/2023 5:47 EDT CK Routine 06/26/2023 5:47 EDT PROTIME Add-On 06/26/2023 4:30 EDT HEPARIN LEVEL - UNFRACTIONATED HEPARIN STAT 06/26/2023 4:30 EDT BLOOD GASES, VENOUS Routine 06/26/2023 1 :09 EDT LACTIC ACID Routine 06/26/2023 1:09 EDT COMPLETE BLOOD COUNT AND DIFFERENTIAL Routine 06/26/2023 1:09 EDT POCT GLUCOSE, INTERFACED Routine 024 1:09 EDT PHOSPHORUS Routine 06/26/2023 1:09 EDT MAGNESIUM Routine 06/26/2023 1:09 EDT COMPREHENSIVE METABOLIC PANEL (CMP) Routine 06/26/2023 1:09 EDT EEG WITH PROLONGED BEDSIDE VIDEO MONITORING Routine 06/25/2023 23:59 EDT PATIENT RE-TYPE Routine 06/25/2023 21:19 EDT POCT GLUCOSE, INTERFACED Routine 024 21:17 EDT BLOOD GASES, VENOUS Routine 06/25/2023 2 1:16 EDT TROPONIN I STAT 06/25/2023 21:16 EDT LACTIC ACID Routine 06/25/2023 21:16 EDT BACTERIAL CULTURE/SMEAR, RESPIRATORY Routine 06/25/2023 21:16 EDT HEPARIN LEVEL - UNFRACTIONATED HEPARIN STAT 06/25/2023 21:16 EDT BASIC METABOLIC PANEL (BMP) Routine 06/25/2023 21:[address] ANGIO CHEST PE PROTOCOL STAT 06/25/2023 20:[address] ABDOMEN PELVIS W CONTRAST STAT 06/25/2023 20:[address] HEAD WO CONTRAST STAT 06/25/2023 2 0:33 EDT POCT GLUCOSE, INTERFACED Routine 024 19:37 EDT XR CHEST LINE PLACEMENT STAT 06/25/19 24 19:07 EDT POCT GLUCOSE, INTERFACED Routine 024 18:27 EDT POCT US ED GUIDANCE CVC 06/25/19 17:54 EDT POCT GLUCOSE, INTERFACED Routine 024 17:12 EDT BLOOD GASES, VENOUS Routine 06/25/2023 1 7:10 EDT TROPONIN I Add-On 06/25/2023 17:10 EDT LACTIC ACID Routine 06/25/2023 17:10 EDT NT PRO BNP Add-On 06/25/2023 17:10 EDT BASIC METABOLIC PANEL (BMP) Routine 06/25/2023 17:10 EDT BACTERIAL CULTURE, BLOOD Routine 024 15:24 EDT BACTERIAL CULTURE, BLOOD Routine 15:12 EDT POCT GLUCOSE, INTERFACED Routine 14:47 EDT TRANSTHORACIC ECHO (TTE) COMPLETE Routine 06/25/2023 14:43 EDT POCT BLOOD GAS, EG6 I-STAT Routine 06/25/2023 14:26 EDT XR CHEST PORTABLE LINE PLACEMENT Routine 06/25/2023 14:17 EDT URINE CHEMICAL (DIP) & SEDIMENT (MICRO) WITH REFLEX TO CULTURE Routine 06/25/2023 14:13 EDT ACUTE HEPATITIS PROFILE Add-On 06/25/19 14:13 EDT PROCALCITONIN Routine 06/25/2023 14:13 EDT STREPTOCOCCUS PNEUMONIAE ANTIGEN, URINE Routine 06/25/2023 14:13 EDT TROPONIN I Add-On 06/25/2023 14:13 EDT LACTIC ACID STAT 06/25/2023 14:13 EDT MRSA PCR Routine 06/25/2023 14:13 EDT PTT STAT 06/25/2023 14:13 EDT PROTIME STAT 06/25/2023 14:13 EDT FIBRINOGEN Add-On 06/25/2023 14:13 EDT D-DIMER Add-On 06/25/2023 14:13 EDT COMPLETE BLOOD COUNT AND DIFFERENTIAL STAT 06/25/2023 14:13 EDT TYPE AND SCREEN Routine 06/25/2023 14:13 EDT BILIRUBIN DIRECT/INDIRECT Add-On 06/25/2023 14:13 EDT C REACTIVE PROTEIN Routine 06/25/2023 14 :13 EDT PHOSPHORUS Add-On 06/25/2023 14:13 EDT CK Add-On 06/25/2023 14:13 EDT ACETAMINOPHEN Add-On 06/25/2023 14:13 EDT COMPREHENSIVE METABOLIC PANEL (CMP) STAT 06/25/2023 14:13 EDT EKG 12-LEAD Routine 06/25/2023 13:57 EDT POCT BLOOD GAS, CG8 I-STAT Routine 06/25/2023 12:10 EDT documented in this encounter Results * ECG REPORT - SCANNED (09/03/2023 15:55 EDT) 09/03/2023 15:5 5 EDT Scan 2 Tank Welder PROCEDURE/MINOR MILKA GICAL ORDERABLES * ECG REPORT - SCANNED (09/03/2023 9:13 EDT) 09/03/2023 9:13 EDT Scan 2 Tank Welder PROCEDURE/MINOR MILKA GICAL ORDERABLES * ECG REPORT - SCANNED (08/23/2023 13:21 EDT) 08/23/2023 13:2 1 EDT Scan 2 Tank Welder PROCEDURE/MINOR MILKA GICAL ORDERABLES * TRANSFUSION RECORD - SCANNED (08/22/2023 14:26 EDT) 08/22/2023 14:2 6 EDT Scan 2 Tank Welder LAB INFO SERVICE AN D SUPPORT & PHONE RESULT * ECG REPORT - SCANNED (08/22/2023 14:26 EDT) 08/22/2023 14:2 6 EDT Scan 2 Tank Welder PROCEDURE/MINOR MILKA GICAL ORDERABLES * MAGNESIUM (08/20/2023 9:56 EDT) Magnesium 1.9 1.7 - 2.8 mg/dL 08/20/2023 11:24 EDT [facility] Blood VENOUS BLOOD / Unknown Venipuncture / Unknown 08/20/2023 9:56 EDT 08/20/2023 10:11 EDT Wilber Ho MD CHEMISTRY & BLOOD G ORDERABLES [facility] [address] [place] [address] * (ABNORMAL) COMPLETE BLOOD COUNT (08/20/2023 9:56 EDT) WBC 8.53 4.00 - 10.40 K/cmm 08/20/2023 10:20 [facility] RBC 3.41(L) 4.36 - 5.78 M/cmm 08/20/2023 10:20 [facility] Hemoglobin 10.6(L) 13.8 - 17.3 g/dL 08/20/2023 10:20 [facility] HCT 32.5(L) 39.5 - 50.2 % 08/20/2023 10:20 [facility] MCV 95 81 - 95 fL 08/20/2023 10:20 [facility] MCH 31.1 27.6 - 33.0 pg 08/20/2023 10:20 [facility] MCHC 32.6(L) 32.8 - 36.4 g/dL 08/20/2023 10:20 [facility] RDW-CV 18.8(H) <14.2 % 08/20/2023 10:20 [facility] RDW-SD 66.7(H) <46.0 fl 08/20/2023 10:20 [facility] PLT 293 141 - 377 K/cmm 08/20/2023 10:20 [facility] MPV 10.1 9.5 - 12.7 fL 08/20/2023 10:20 [facility] Blood VENOUS BLOOD / Unknown Venipuncture / Unknown 08/20/2023 9:56 EDT 08/20/2023 10:11 EDT Wilber Ho MD HEMATOLOGY & PF4 OR DERABLES [facility] [address] [place] [address] * (ABNORMAL) BASIC METABOLIC PANEL (BMP) (08/20/2023 9:56 EDT) Sodium 136 136 - 145 mmol/L 08/20/2023 11:24 [facility] Potassium 4.0 3.5 - 5.0 mmol/L 08/20/2023 11:24 EDT [facility] Chloride 95(L) 96 - 110 mmol/L 08/20/2023 11:24 T [facility] CO2 Total 27 22 - 32 mmol/L 08/20/2023 11:24 [facility] Anion Gap 14 5 - 14 mmol/L 08/20/2023 11:24 [facility] Glucose 173(H) 70 - 99 mg/dl 08/20/2023 11:24 [facility] Calcium 9.3 8.5 - 10.5 mg/dL 08/20/2023 11:24 [facility] BUN 39(H) 10 - 26 mg/dL 08/20/2023 11:24 [facility] Creatinine 1.45(H) 0.66 - 1.25 mg/dL 08/20/2023 11:24 [facility] eGFR 52(L) >60 mL/min/1.73 m2 08/20/2023 11:24 [facility] Blood VENOUS BLOOD / Unknown Venipuncture / Unknown 08/20/2023 9:56 EDT 08/20/2023 10:11 EDT Wilber Ho MD CHEMISTRY & BLOOD G ORDERABLES [facility] [address], [place] [id number] * (ABNORMAL) NT PRO BNP (08/20/2023 9:56 EDT) NT-pro BNP 3,210(H) <299 pg/mL 08/20/2023 10:59 EDT [facility] Comment: In the acute setting NT-proBNP values <300 pg/mL have a 98% NPV for excluding acute heart failure. In outpatient populations, NT-proBNP values <125 have a 99% NPV for excluding heart failure. Blood VENOUS BLOOD / Unknown Venipuncture / Unknown 08/20/2023 9:56 EDT 08/20/2023 10:11 EDT Shanthi Tom MD PhD CHEMISTRY & BLOOD G ORDERABLES [facility] [address] [place] [address] * XR ABDOMEN 1 VIEW (08/17/2023 15:34 EDT) Anatomical Region Laterality Modality Body Computed Radiogr aphy 08/17/2023 16:0 8 EDT Narrative 08/17/2023 16:08 EDT XR ABDOMEN 1 VIEW 08/17/2023 3:16 PM Clinical History/Comments: Concern for kidney stone; Comparison: CT angiogram abdomen 08/03/2023 demonstrating no nephrolithiasis Technique: Radiographs abdomen. 1 view Findings: No radiopaque nephrolithiasis or visible urinary tract calculi. Nonspecific nonobstructive bowel gas pattern. Calcified granuloma in the right lung base. Cholelithiasis is present. 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 Multilevel degenerative changes of the spine. Moderate degenerative changes of the hips greater on left than right. I have personally reviewed the images and the above interpretation and agree with the findings. [id number] Resulting Agency Comment [id number] Procedure Note Ruben Stack MD - 08/17/2023 XR ABDOMEN 1 VIEW 08/17/2023 3:16 PM Clinical History/Comments: Concern for kidney stone; Comparison: CT angiogram abdomen 08/03/2023 demonstrating nonephrolithiasis Technique: Radiographs abdomen. 1 view Findings: No radiopaque nephrolithiasis or visible urinary tract calculi.Nonspecific nonobstructive bowel gas pattern. Calcified granuloma in theright lung base. Cholelithiasis is present. Bilateral CAM type morphology of the femoral heads which can predispose tofemoral acetabular impingement syndrome a clinical diagnosis. Multileveldegenerative changes of the spine. Moderate degenerative changes of thehips greater on left than right. I have personally reviewed the images and the above interpretation andagree with the findings. [id number] Randy Rushing MD IMG DIAGNOSTIC IMAGI NG ORDERABLES * (ABNORMAL) POCT GLUCOSE, INTERFACED (08/17/2023 15:14 EDT) Glucose, POC 133(H) 70 - 100 mg/dL 08/17/2023 15:16 EDT [facility] HN LAB POC COMMENT (GLUCOSE) Test Performed by Nursing Services 08/17/2023 15:16 T [facility] Blood CAPILLARY BLOOD / Unknown 08/17/2023 15:14 EDT 08/17/2023 15:16 EDT Wilber Ho MD POINT OF CARE TEST ORDERABLES [facility] [address] [place] [id number] * (ABNORMAL) UA CHEMICAL & SEDIMENT + REFLEX TO CULTURE (08/17/2023 11:18 EDT) Color UA Yellow Colorless, Yellow 08/17/2023 11:35 [facility] Clarity UA Cloudy(A) Clear 08/17/2023 11:35 [facility] Glucose UA Negative Negative mg/dL 08/17/2023 11:35 [facility] Bilirubin UA Negative Negative 08/17/2023 11:35 [facility] Ketones UA Negative Negative 08/17/2023 11:35 [facility] Specific [place], Urine 1.008 1.001 - 1.030 08/17/2023 11:35 [facility] Blood UA Negative Negative 08/17/2023 11:35 [facility] Urobilinogen UA 0.2 0.2-1.0 mg/dL mg/dL 08/17/2023 11:35 [facility] Nitrite UA Negative Negative 08/17/2023 11:35 [facility] Leukocyte Esterase UA Negative Negative 08/17/2023 11:35 [facility] Protein UA Negative Negative mg/dL 08/17/2023 11:35 [facility] pH, UA 7.0 <8.5 08/17/2023 11:35 [facility] Urine RBC Count, Auto 0 - 2 0 - 2 Cells/HPF 08/17/2023 11:35 T [facility] Urine WBC Count, Auto 0 - 3 0 - 3 Cells/HPF 08/17/2023 11:35 [facility] Urine Squamous Count, Auto None Seen None Seen Cells/HPF 08/17/2023 11:35 [facility] Urine Hyaline Cast Count, Auto <=10 <=10 Casts/LPF 08/17/2023 11:35 [facility] Urine Bacteria Count, Auto None Seen None Seen Bacteria/HPF 08/17/2023 11:35 [facility] Urine URINE SPECIMEN OBTAINED BY CLEAN CATCH PROCEDURE / Unknown Urine Collect / Unknown 08/17/2023 11:18 EDT 08/17/2023 11:26 EDT [facility] LABORATORY [facility] - 08/17/2023 11:35 EDT NOTE: Reflex to Urine Culture test is not indicated based on Urine Sediment Analysis results. Urine Sediment Analysis results are unreliable on urines that are unrefrigerated for >2 hrs or refrigerated >8 hrs. Randy Rushing MD URINALYSIS ORDERABLE S [facility] [address] [place] [address] * (ABNORMAL) BASIC METABOLIC PANEL (BMP) (08/16/2023 9:10 EDT) Sodium 139 136 - 145 mmol/L 08/16/2023 10:14 [facility] Potassium 3.9 3.5 - 5.0 mmol/L 08/16/2023 10:14 T [facility] Chloride 94(L) 96 - 110 mmol/L 08/16/2023 10:14 [facility] CO2 Total 30 22 - 32 mmol/L 08/16/2023 10:14 [facility] Anion Gap 15(H) 5 - 14 mmol/L 08/16/2023 10:14 EDT [facility] Glucose 131(H) 70 - 99 mg/dl 08/16/2023 10:14 EDT [facility] Calcium 9.6 8.5 - 10.5 mg/dL 08/16/2023 10:14 EDT [facility] BUN 40(H) 10 - 26 mg/dL 08/16/2023 10:14 EDT [facility] Creatinine 1.88(H) 0.66 - 1.25 mg/dL 08/16/2023 10:14 EDT [facility] eGFR 38(L) >60 mL/min/1.73 m2 08/16/2023 10:14 EDT [facility] Blood VENOUS BLOOD / Unknown Venipuncture / Unknown 08/16/2023 9:10 EDT 08/16/2023 9:47 EDT Shanthi Sen MD CHEMISTRY & BLOOD GA S ORDERABLES Performing Organization Address City/[facility]/ZIP Co de Phone Number [facility] [address] [place] [address] * MAGNESIUM (08/15/2023 8:49 EDT) Magnesium 1.8 1.7 - 2.8 mg/dL 08/15/2023 9:51 EDT [facility] Blood VENOUS BLOOD / Unknown Venipuncture / Unknown 08/15/2023 8:49 EDT 08/15/2023 9:22 EDT Shanthi Sen MD CHEMISTRY & BLOOD GA S ORDERABLES Performing Organization Address City/[facility]/ZIP Co de Phone Number [facility] [address] [place] [address] * (ABNORMAL) COMPLETE BLOOD COUNT (08/15/2023 8:49 EDT) WBC 8.79 4.00 - 10.40 K/cmm 08/15/2023 9:32 [facility] RBC 3.39(L) 4.36 - 5.78 M/cmm 08/15/2023 9:32 [facility] Hemoglobin 10.5(L) 13.8 - 17.3 g/dL 08/15/2023 9:32 [facility] HCT 31.5(L) 39.5 - 50.2 % 08/15/2023 9:32 [facility] MCV 93 81 - 95 fL 08/15/2023 9:32 [facility] MCH 31.0 27.6 - 33.0 pg 08/15/2023 9:32 [facility] MCHC 33.3 32.8 - 36.4 g/dL 08/15/2023 9:32 [facility] RDW-CV 19.9(H) <14.2 % 08/15/2023 9:32 [facility] RDW-SD 67.8(H) <46.0 fl 08/15/2023 9:32 [facility] PLT 320 141 - 377 K/cmm 08/15/2023 9:32 [facility] MPV 10.2 9.5 - 12.7 fL 08/15/2023 9:32 [facility] Blood VENOUS BLOOD / Unknown Venipuncture / Unknown 08/15/2023 8:49 EDT 08/15/2023 9:20 EDT Shanthi Sen MD HEMATOLOGY & PF4 ORD ERABLES [facility] [address] [place] [address] * (ABNORMAL) BASIC METABOLIC PANEL (BMP) (08/15/2023 8:49 EDT) Sodium 136 136 - 145 mmol/L 08/15/2023 9:51 [facility] Potassium 3.7 3.5 - 5.0 mmol/L 08/15/2023 9:51 [facility] Chloride 93(L) 96 - 110 mmol/L 08/15/2023 9:51 EDT [facility] CO2 Total 30 22 - 32 mmol/L 08/15/2023 9:51 [facility] Anion Gap 13 5 - 14 mmol/L 08/15/2023 9:51 [facility] Glucose 131(H) 70 - 99 mg/dl 08/15/2023 9:51 [facility] Calcium 9.5 8.5 - 10.5 mg/dL 08/15/2023 9:51 [facility] BUN 39(H) 10 - 26 mg/dL 08/15/2023 9:51 [facility] Creatinine 2.13(H) 0.66 - 1.25 mg/dL 08/15/2023 9:51 [facility] eGFR 33(L) >60 mL/min/1.73 m2 08/15/2023 9:51 [facility] Blood VENOUS BLOOD / Unknown Venipuncture / Unknown 08/15/2023 8:49 EDT 08/15/2023 9:22 EDT Shanthi Sen MD CHEMISTRY & BLOOD GA S ORDERABLES Performing Organization Address [facility]/State/ZIP Co de Phone Number [facility] [address] [place] [address] * (ABNORMAL) BASIC METABOLIC PANEL (BMP) (08/13/2023 14:31 EDT) Sodium 135(L) 136 - 145 mmol/L 08/13/2023 15:30 EDT [facility] Potassium 4.2 3.5 - 5.0 mmol/L 08/13/2023 15:30 [facility] Comment:Slight hemolysis peggy ntified, interpret with caution as hemolysis will elevate potassium result. Chloride 96 96 - 110 mmol/L 08/13/2023 15:30 EDT [facility] CO2 Total 22 22 - 32 mmol/L 08/13/2023 15:30 T [facility] Anion Gap 17(H) 5 - 14 mmol/L 08/13/2023 15:30 [facility] Glucose 109(H) 70 - 99 mg/dl 08/13/2023 15:30 [facility] Calcium 9.2 8.5 - 10.5 mg/dL 08/13/2023 15:30 [facility] BUN 37(H) 10 - 26 mg/dL 08/13/2023 15:30 [facility] Comment: Slight hemolysis identified, interpret with caution as results may be affected due to hemolysis. Creatinine 1.86(H) 0.66 - 1.25 mg/dL 08/13/2023 15:30 [facility] eGFR 39(L) >60 mL/min/1.7 3m2 08/13/2023 15:30 [facility] Blood VENOUS BLOOD / Unknown Venipuncture / Unknown 08/13/2023 14:31 EDT 08/13/2023 14:51 EDT Flaquita Benavidez MD CHEMISTRY & BLOOD GA S ORDERABLES Performing Organization Address City/[facility] Co de Phone Number [facility] [address] [place] [address] * MAGNESIUM (08/13/2023 14:31 EDT) Magnesium 1.7 1.7 - 2.8 mg/dL 08/13/2023 15:30 EDT [facility] Comment:Slight hemolysis peggy ntified, interpret with caution as results may be affected due to hemolysis. Blood VENOUS BLOOD / Unknown Venipuncture / Unknown 08/13/2023 14:31 EDT 08/13/2023 14:51 EDT Shanthi Sen MD CHEMISTRY & BLOOD GA S ORDERABLES Performing Organization Address [facility]/ZIP Co de Phone Number [facility] [address] [place] [address] * (ABNORMAL) COMPLETE BLOOD COUNT (08/13/2023 14:31 EDT) WBC 11.85(H) 4.00 - 10.40 K/cmm 08/13/2023 15:02 [facility] RBC 3.43(L) 4.36 - 5.78 M/cmm 08/13/2023 15:02 [facility] Hemoglobin 10.5(L) 13.8 - 17.3 g/dL 08/13/2023 15:02 [facility] HCT 31.7(L) 39.5 - 50.2 % 08/13/2023 15:02 [facility] MCV 92 81 - 95 fL 08/13/2023 15:02 [facility] MCH 30.6 27.6 - 33.0 pg 08/13/2023 15:02 [facility] MCHC 33.1 32.8 - 36.4 g/dL 08/13/2023 15:02 [facility] RDW-CV 20.1(H) <14.2 % 08/13/2023 15:02 [facility] RDW-SD 68.5(H) <46.0 fl 08/13/2023 15:02 [facility] PLT 319 141 - 377 K/cmm 08/13/2023 15:02 [facility] MPV 10.4 9.5 - 12.7 fL 08/13/2023 15:02 [facility] Blood VENOUS BLOOD / Unknown Venipuncture / Unknown 08/13/2023 14:31 EDT 08/13/2023 14:49 EDT Shanthi Tom MD PhD HEMATOLOGY & PF4 OR DERABLES [facility] [address] [place] [address] * EKG 12-LEAD (08/13/2023 14:09 EDT) 08/13/2023 14:0 9 EDT Narrative [facility] EKG - 09/03/2023 9:05 EDT ? [facility] ? Test Date: ?2023-08-13 Pat Name: ? DERRICK PILOTTE ? Department: ?? [address] ? Room: ? M623 Gender: ? Male ? 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 [id number] : ?1955 ? Requested By: FRANCY MAKI Order Number: [id number] ? Reading MD: ?? CAN CHRISTINA MD ? Measurements Intervals ?[place] ? Rate: ? 93 ? P: ?0 AR: ? 0 ?QRS: ?32 QRSD: ? 125 ?T: ?31 QT: ? 384 ? QTc: ?480 ? Interpretive Statements ATRIAL FIBRILLATION MODERATE INTRAVENTRICULAR CONDUCTION DELAY NONSPECIFIC ST & T-WAVE ABNORMALITY ABNORMAL RHYTHM ECG Automated Interpretation. ??Provider Interpretation to follow. Compared to ECG 08/11/2023 22:35:49 T-wave abnormality now present ST (T wave) deviation no longer present I reviewed the tracing and have either agreed or edited the findings in this report. Electronically Signed On 09-03-2023 09:05:11 EDT by CAN CHRISTINA MD. 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 Provider Interpretation to follow. Compared to ECG 08/11/2023 22:35:49 T-wave abnormality now present ST (T wave) deviation no longer present I reviewed the tracing and have either agreed or edited the findings inthis report. Electronically Signed On 09-03-2023 09:05:11 EDT by CAN FITZPATRICK. Shanthi Sen MD CARDIAC ECG ORDERABL ES [facility] EKG * MAGNESIUM (08/12/2023 8:53 EDT) Magnesium 1.8 1.7 - 2.8 mg/dL 08/12/2023 10:48 EDT [facility] Blood VENOUS BLOOD / Unknown Venipuncture / Unknown 08/12/2023 8:53 EDT 08/12/2023 9:16 EDT Shanthi Sen MD CHEMISTRY & BLOOD GA S ORDERABLES Performing Organization Address [facility] Co de Phone Number [facility] [address] [place] [id number] * EKG 12-LEAD (08/11/2023 22:35 EDT) 08/11/2023 22:3 5 EDT Narrative [facility] EKG - 09/03/2023 15:40 EDT ? [facility] ? Test Date: ?2023-08-11 Pat Name: ? DERRICK PILOTTE ? Department: ?? [address] 6 ? Room: ? M623 Gender: ? Male ? 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 [id number] : ?1955 ? Requested By: BIMAL DALIA Order Number: [id number] ? Reading MD: ?? MEI TREADWELL MD ? Measurements Intervals ?[place] ? Rate: ? 95 ? P: ?0 AR: ? 0 ?QRS: ?27 QRSD: ? 126 ?T: ?31 QT: ? 413 ? QTc: ?520 ? Interpretive Statements ATRIAL FIBRILLATION WITH CONTROLLED VENTRICULAR RESPONSE INTRAVENTRICULAR CONDUCTION DELAY BORDERLINE PROLONGED QT INTERVAL NONSPECIFIC ST-T WAVE ABNORMALITIES Compared to ECG 07/21/2023 21:48:54 Borderline prolonged QT interval now present Nonspecific ST-T wave abnormalities still present Edited by EDNA TAPIA MD on 08-13-2023 10:47:42 EDT. I reviewed the tracing and have either agreed or edited the findings in this report. Electronically Signed On 09-03-2023 15:40:37 EDT by MEI TREADWELL MD. 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 I reviewed the tracing and have either agreed or edited the findings inthis report. Electronically Signed On 09-03-2023 15:40:37 EDT by MEI MCBRIDE. Dalia Lim MD CARDIAC ECG ORDERAB LES [facility] EKG * MAGNESIUM (08/11/2023 10:42 EDT) Magnesium 1.8 1.7 - 2.8 mg/dL 08/11/2023 11:24 EDT [facility] Blood VENOUS BLOOD / Unknown Venipuncture / Unknown 08/11/2023 10:42 EDT 08/11/2023 10:56 EDT Shanthi Sen MD CHEMISTRY & BLOOD GA S ORDERABLES [facility] [address] [place] [id number] * (ABNORMAL) BASIC METABOLIC PANEL (BMP) (08/11/2023 10:42 EDT) Sodium 136 136 - 145 mmol/L 08/11/2023 11:24 EDT [facility] Potassium 3.7 3.5 - 5.0 mmol/L 08/11/2023 11:24 T [facility] Chloride 99 96 - 110 mmol/L 08/11/2023 11:24 T [facility] CO2 Total 20(L) 22 - 32 mmol/L 08/11/2023 11:24 T [facility] Anion Gap 17(H) 5 - 14 mmol/L 08/11/2023 11:24 T [facility] Glucose 133(H) 70 - 99 mg/dl 08/11/2023 11:24 [facility] Calcium 9.2 8.5 - 10.5 mg/dL 08/11/2023 11:24 [facility] BUN 33(H) 10 - 26 mg/dL 08/11/2023 11:24 [facility] Creatinine 1.88(H) 0.66 - 1.25 mg/dL 08/11/2023 11:24 [facility] eGFR 38(L) >60 mL/min/1.73 m2 08/11/2023 11:24 [facility] Blood VENOUS BLOOD / Unknown Venipuncture / Unknown 08/11/2023 10:42 EDT 08/11/2023 10:56 EDT Shanthi Sen MD CHEMISTRY & BLOOD GA S ORDERABLES [facility] [address] [place] [id number] * MAGNESIUM (08/10/2023 10:46 EDT) Magnesium 1.8 1.7 - 2.8 mg/dL 08/10/2023 11:45 EDT [facility] Blood VENOUS BLOOD / Unknown Venipuncture / Unknown 08/10/2023 10:46 EDT 08/10/2023 11:16 EDT Shanthi Sen MD CHEMISTRY & BLOOD GA S ORDERABLES Performing Organization Address City/[facility]/ZIP Co de Phone Number [facility] [address] [place] [address] * (ABNORMAL) BASIC METABOLIC PANEL (BMP) (08/10/2023 10:46 EDT) Sodium 138 136 - 145 mmol/L 08/10/2023 11:45 T [facility] Potassium 3.9 3.5 - 5.0 mmol/L 08/10/2023 11:45 [facility] Chloride 100 96 - 110 mmol/L 08/10/2023 11:45 [facility] CO2 Total 22 22 - 32 mmol/L 08/10/2023 11:45 [facility] Anion Gap 16(H) 5 - 14 mmol/L 08/10/2023 11:45 [facility] Glucose 108(H) 70 - 99 mg/dl 08/10/2023 11:45 [facility] Calcium 9.3 8.5 - 10.5 mg/dL 08/10/2023 11:45 [facility] BUN 32(H) 10 - 26 mg/dL 08/10/2023 11:45 [facility] Creatinine 1.94(H) 0.66 - 1.25 mg/dL 08/10/2023 11:45 [facility] eGFR 37(L) >60 mL/min/1.73 m2 08/10/2023 11:45 [facility] Blood VENOUS BLOOD / Unknown Venipuncture / Unknown 08/10/2023 10:46 EDT 08/10/2023 11:16 EDT Shanthi Sen MD CHEMISTRY & BLOOD DC S ORDERABLES [facility] [address] [place] [address] * (ABNORMAL) BASIC METABOLIC PANEL (BMP) (08/09/2023 8:53 EDT) Sodium 137 136 - 145 mmol/L 08/09/2023 9:42 EDT [facility] Potassium 3.4(L) 3.5 - 5.0 mmol/L 08/09/2023 9:42 [facility] Chloride 99 96 - 110 mmol/L 08/09/2023 9:42 T [facility] CO2 Total 22 22 - 32 mmol/L 08/09/2023 9:42 T [facility] Anion Gap 16(H) 5 - 14 mmol/L 08/09/2023 9:42 [facility] Glucose 83 70 - 99 mg/dl 08/09/2023 9:42 [facility] Calcium 9.2 8.5 - 10.5 mg/dL [facility]/09[facility]23 [facility] BUN 26 10 - 26 mg/dL 08/09/2023 9:42 [facility] Creatinine 1.95(H) 0.66 - 1.25 mg/dL 08/09/2023 9:42 [facility] eGFR 37(L) >60 mL/min/1.73 m2 08/09/2023 9:42 T [facility] Blood VENOUS BLOOD / Unknown Venipuncture / Unknown 08/09/2023 8:53 EDT 08/09/2023 9:10 EDT Flaquita Benavidez MD CHEMISTRY & BLOOD GA S ORDERABLES [facility] [address] [place] [phone] * MAGNESIUM (08/09/2023 8:53 EDT) Magnesium 1.8 1.7 - 2.8 mg/dL 08/09/2023 9:42 EDT [facility] Blood VENOUS BLOOD / Unknown Venipuncture / Unknown 08/09/2023 8:53 EDT 08/09/2023 9:10 EDT Flaquita Benavidez MD CHEMISTRY & BLOOD GA S ORDERABLES Performing Organization Address City/[facility] de Phone Number [facility] [address], [place] [id number] * (ABNORMAL) COMPLETE BLOOD COUNT (08/09/2023 8:53 EDT) WBC 7.42 4.00 - 10.40 K/cmm 08/09/2023 9:19 [facility] RBC 3.13(L) 4.36 - 5.78 M/cmm 08/09/2023 9:19 [facility] Hemoglobin 9.6(L) 13.8 - 17.3 g/dL 08/09/2023 9:19 [facility] HCT 29.8(L) 39.5 - 50.2 % 08/09/2023 9:19 [facility] MCV 95 81 - 95 fL 08/09/2023 9:19 [facility] MCH 30.7 27.6 - 33.0 pg 08/09/2023 9:19 [facility] MCHC 32.2(L) 32.8 - 36.4 g/dL 08/09/2023 9:19 [facility] RDW-CV 21.9(H) <14.2 % 08/09/2023 9:19 [facility] RDW-SD 75.7(H) <46.0 fl 08/09/2023 9:19 [facility] PLT 323 141 - 377 K/cmm 08/09/2023 9:19 [facility] MPV 10.0 9.5 - 12.7 fL 08/09/2023 9:19 [facility] Blood VENOUS BLOOD / Unknown Venipuncture / Unknown 08/09/2023 8:53 EDT 08/09/2023 9:09 EDT Shanthi Tom MD PhD HEMATOLOGY & PF4 OR DERABLES [facility] [address] [place] [address] * MAGNESIUM (08/08/2023 10:09 EDT) [facility] Magnesium 2.0 1.7 - 2.8 mg/dL 08/08/2023 10:47 T [facility] Blood VENOUS BLOOD / Unknown Venipuncture / Unknown 08/08/2023 10:09 EDT 08/08/2023 10:15 EDT Flaquita Benavidez MD CHEMISTRY & BLOOD GA S ORDERABLES Performing Organization Address [facility] Co de Phone Number [facility] SERVICES [address] [place] [address] * (ABNORMAL) BASIC METABOLIC PANEL (BMP) (08/08/2023 10:09 EDT) [facility] Sodium 142 136 - 145 mmol/L 08/08/2023 10:47 [facility] Potassium 4.7 3.5 - 5.0 mmol/L 08/08/2023 10:47 [facility] Chloride 103 96 - 110 mmol/L 08/08/2023 10:47 [facility] CO2 Total 24 22 - 32 mmol/L 08/08/2023 10:47 [facility] Anion Gap 15(H) 5 - 14 mmol/L 08/08/2023 10:47 [facility] Glucose 97 70 - 99 mg/dl 08/08/2023 10:47 [facility] Calcium 9.7 8.5 - 10.5 mg/dL 08/08/2023 10:47 [facility] BUN 27(H) 10 - 26 mg/dL 08/08/2023 10:47 [facility] Creatinine 1.99(H) 0.66 - 1.25 mg/dL 08/08/2023 10:47 [facility] eGFR 36(L) >60 mL/min/1.73 m2 08/08/2023 10:47 EDT [facility] Blood VENOUS BLOOD / Unknown Venipuncture / Unknown 08/08/2023 10:09 EDT 08/08/2023 10:15 EDT Flaquita Benavidez MD CHEMISTRY & BLOOD GA S ORDERABLES [facility] [address] [place] [address] * (ABNORMAL) BASIC METABOLIC PANEL (BMP) (08/07/2023 15:46 EDT) Sodium 135(L) 136 - 145 mmol/L 08/07/2023 17:07 [facility] Potassium 3.5 3.5 - 5.0 mmol/L 08/07/2023 17:07 [facility] Chloride 102 96 - 110 mmol/L 08/07/2023 17:07 [facility] CO2 Total 21(L) 22 - 32 mmol/L 08/07/2023 17:07 [facility] Anion Gap 12 5 - 14 mmol/L 08/07/2023 17:07 [facility] Glucose 128(H) 70 - 99 mg/dl 08/07/2023 17:07 [facility] Calcium 9.0 8.5 - 10.5 mg/dL 08/07/2023 17:07 [facility] BUN 29(H) 10 - 26 mg/dL 08/07/2023 17:07 [facility] Creatinine 2.16(H) 0.66 - 1.25 mg/dL 08/07/2023 17:07 [facility] eGFR 33(L) >60 mL/min/1.73 m2 08/07/2023 17:07 [facility] Blood VENOUS BLOOD / Unknown Venipuncture / Unknown 08/07/2023 15:46 EDT 08/07/2023 16:06 EDT Shanthi Sen MD CHEMISTRY & BLOOD GA S ORDERABLES Performing Organization Address [facility] Co de Phone Number [facility] [address] [place] [address] * (ABNORMAL) BACTERIAL CULTURE, URINE (08/06/2023 14:56 EDT) Organism ID [id number], [id number] to 100,000 CFU/ml Lydia albicans(A) 08/08/2023 14:36 EDT [facility] Organism ID Less than 10,000 CFU/ml usual urogenital deanna. 08/08/2023 14:36 EDT [facility] Urine URINE SPECIMEN OBTAINED BY CLEAN CATCH PROCEDURE / Unknown Urine Collect / Unknown 08/06/2023 14:56 EDT 08/06/2023 15:19 EDT Flaquita Benavidez MD MICROBIOLOGY - GENER AL ORDERABLES Performing Organization Address [facility] Co de Phone Number [facility] [address] [place] [address] * (ABNORMAL) UA CHEMICAL & SEDIMENT + REFLEX TO CULTURE (08/06/2023 14:56 EDT) Color UA Yellow Colorless, Yellow 08/06/2023 15:19 [facility] Clarity UA Turbid(A) Clear 08/06/2023 15:19 [facility] Glucose UA 2+(A) Negative mg/dL 08/06/2023 15:19 [facility] Bilirubin UA Negative Negative 08/06/2023 15:19 [facility] Ketones UA Negative Negative 08/06/2023 15:19 [facility] Specific [place], Urine 1.011 1.001 - 1.030 08/06/2023 15:19 [facility] Blood UA 1+(A) Negative 08/06/2023 15:19 [facility] Urobilinogen UA 0.2 0.2-1.0 mg/dL mg/dL 08/06/2023 15:19 [facility] Nitrite UA Negative Negative 08/06/2023 15:19 [facility] Leukocyte Esterase UA 3+(A) Negative 08/06/2023 15:19 [facility] Protein UA Trace(A) Negative mg/dL 08/06/2023 15:19 [facility] pH, UA 6.0 <8.5 08/06/2023 15:19 [facility] Urine RBC Count, Auto 0 - 2 0 - 2 Cells/HPF 08/06/2023 15:19 [facility] Urine WBC Count, Auto >50(A) 0 - 3 Cells/HPF 08/06/2023 15:19 [facility] Urine Squamous Count, Auto None Seen None Seen Cells/HPF 08/06/2023 15:19 [facility] Urine Hyaline Cast Count, Auto <=10 <=10 Casts/LPF 08/06/2023 15:19 [facility] Urine Bacteria Count, Auto None Seen None Seen Bacteria/HP F 08/06/2023 15:19 [facility] Urine Yeast Present(A) None Seen per HPF 08/06/2023 15:19 [facility] Urine URINE SPECIMEN OBTAINED BY CLEAN CATCH PROCEDURE / Unknown Urine Collect / Unknown 08/06/2023 14:56 EDT 08/06/2023 15:02 EDT Narrative [facility] - 08/06/2023 15:19 EDT A Urine Culture test has been reflexively ordered based on result criteria from the Urine Sediment Analysis. Urine Sediment Analysis results are unreliable on urines that are unrefrigerated for >2 hrs or refrigerated >8 hrs. Flaquita Benavidez MD URINALYSIS ORDERABLE S [facility] [address], [place] [id number] * ECG REPORT - SCANNED (08/06/2023 14:46 EDT) 08/06/2023 14:4 6 EDT Scan 2 Tank Welder PROCEDURE/MINOR MILKA GICAL ORDERABLES * MAGNESIUM (08/06/2023 9:16 EDT) [facility] Magnesium 1.8 1.7 - 2.8 mg/dL 08/06/2023 10:17 EDT [facility] Blood VENOUS BLOOD / Unknown Venipuncture / Unknown 08/06/2023 9:16 EDT 08/06/2023 9:35 EDT Shanthi Tom MD PhD CHEMISTRY & BLOOD G ORDERABLES [facility] [address] [place] [address] * (ABNORMAL) COMPLETE BLOOD COUNT AND DIFFERENTIAL (08/06/2023 9:16 EDT) [facility] WBC 6.99 4.00 - 10.40 K/cmm 08/06/2023 9:43 [facility] RBC 2.98(L) 4.36 - 5.78 M/cmm 08/06/2023 9:43 [facility] Hemoglobin 9.3(L) 13.8 - 17.3 g/dL 08/06/2023 9:43 [facility] HCT 28.3(L) 39.5 - 50.2 % 08/06/2023 9:43 [facility] MCV 95 81 - 95 fL 08/06/2023 9:43 [facility] MCH 31.2 27.6 - 33.0 pg 08/06/2023 9:43 [facility] MCHC 32.9 32.8 - 36.4 g/dL 08/06/2023 9:43 [facility] RDW-CV 23.0(H) <14.2 % 08/06/2023 9:43 [facility] RDW-SD 78.5(H) <46.0 fl 08/06/2023 9:43 [facility] PLT 323 141 - 377 K/cmm 08/06/2023 9:43 [facility] MPV 9.8 9.5 - 12.7 fL 08/06/2023 9:43 [facility] % Neutrophils 75.1 % 08/06/2023 9:43 [facility] % Lymphocytes 9.7 % 08/06/2023 9:43 [facility] % Monocytes 9.6 % 08/06/2023 9:43 [facility] % Eosinophils 4.1 % 08/06/2023 9:43 [facility] % Basophils 1.1 % 08/06/2023 9:43 [facility] % Immature Grans 0.4 % 08/06/19 9:43 [facility] Absolute Neutrophils 5.24 2.20 - 8.85 K/cmm 08/06/2023 9:43 [facility] Absolute Lymphocytes 0.68(L) 1.09 - 3.30 K/cmm 08/06/2023 9:43 [facility] Absolute Monocytes 0.67 0.10 - 0.80 K/cmm 08/06/2023 9:43 [facility] Absolute Eosinophils 0.29 0.03 - 0.61 K/cmm 08/06/2023 9:43 [facility] ABS Basophils 0.08 0.01 - 0.11 K/cmm 08/06/2023 9:43 [facility] Absolute Immature Grans 0.03 0.00 - 0.06 K/cmm 08/06/2023 9:43 [facility] Type of Differential: Auto 08/06/2023 9:43 [facility] Blood VENOUS BLOOD / Unknown Venipuncture / Unknown 08/06/2023 9:16 EDT 08/06/2023 9:36 EDT Shanthi Tom MD PhD PACKAGES & DNA PROB E ORDERABLES Performing Organization Address City/[facility]/ZIP Co de Phone Number [facility] [address] [place] [address] * (ABNORMAL) BASIC METABOLIC PANEL (BMP) (08/06/2023 9:16 EDT) Sodium 136 136 - 145 mmol/L 08/06/2023 10:17 [facility] Potassium 3.7 3.5 - 5.0 mmol/L 08/06/2023 10:17 [facility] Chloride 102 96 - 110 mmol/L 08/06/2023 10:17 [facility] CO2 Total 20(L) 22 - 32 mmol/L 08/06/2023 10:17 [facility] Anion Gap 14 5 - 14 mmol/L 08/06/2023 10:17 [facility] Glucose 107(H) 70 - 99 mg/dl 08/06/2023 10:17 [facility] Calcium 9.5 8.5 - 10.5 mg/dL 08/06/2023 10:17 [facility] BUN 28(H) 10 - 26 mg/dL 08/06/2023 10:17 [facility] Creatinine 2.09(H) 0.66 - 1.25 mg/dL 08/06/2023 10:17 [facility] eGFR 34(L) >60 mL/min/1.73 m2 08/06/2023 10:17 [facility] Blood VENOUS BLOOD / Unknown Venipuncture / Unknown 08/06/2023 9:16 EDT 08/06/2023 9:35 EDT Shanthi Tom MD PhD CHEMISTRY & BLOOD G ORDERABLES [facility] [address] [place] [address] * XR CHEST 2 VIEWS (08/05/2023 12:44 EDT) Anatomical Region Laterality Modality Computed Radiogr aphy 08/05/2023 14:3 9 EDT Impressions 08/05/2023 14:39 EDT No acute findings in the chest. [id number] Narrative 08/05/2023 14:39 EDT XR CHEST 2 VIEWS ??08/05/2023 12:37 PM Clinical History/comments: Fever, cough; Comparison: Chest radiograph 07/10/2023. Technique: Frontal and lateral views of the chest. Findings: Lungs: Normal. Pleura/diaphragms: Normal. Cardiac and mediastinal contours: Normal. Soft tissues and extrathoracic findings: ??Normal. Bones: Reverse left shoulder arthroplasty. Resulting Agency Comment [id number] Procedure Note Lowell Morris, DO - 08/05/2023 XR CHEST 2 VIEWS 08/05/2023 12:37 PM Clinical History/comments: Fever, cough; Comparison: Chest radiograph 07/10/2023. Technique: Frontal and lateral views of the chest. Findings: Lungs: Normal. Pleura/diaphragms: Normal. Cardiac and mediastinal contours: Normal. Soft tissues and extrathoracic findings: Normal. Bones: Reverse left shoulder arthroplasty. IMPRESSION No acute findings in the chest. [id number] Shanthi Tom MD PhD IMG DIAGNOSTIC IMAG ING ORDERABLES * EXPANDED RESPIRATORY VIRAL PANEL, PCR (DOES NOT INCLUDE INFLUENZA OR RSV) (08/05/2023 12:09 EDT) Paraflu Type 1 Rslt (PF1RES) Negative Negative 08/05/2023 15:13 EDT [facility] Paraflu Type 2 Rslt (PF2RES) Negative Negative 08/05/2023 15:13 EDT [facility] Paraflu Type 3 Rslt (PF3RES) Negative Negative 08/05/2023 15:13 EDT [facility] Paraflu Type 4 Rslt Negative Negative 08/04 15:13 EDT [facility] Rhinovirus RNA Rslt (RVRES) Negative Negative 08/05/2023 15:13 EDT [facility] Metapneumovirus RNA Rslt (HMVRES) Negative Negative 08/05/2023 15:13 EDT [facility] Adenovirus DNA Rslt (ADVRES) Negative Negative 08/05/2023 15:13 EDT [facility] Swab NASOPHARYNGEAL STRUCTURE / Unknown Swab / Unknown 08/05/2023 12:09 EDT 08/05/2023 12:23 EDT Shanthi Tom MD PhD MICROBIOLOGY - [employer] ORDERABLES Performing Organization Address City/[facility] Co de Phone Number [facility] [address] [place] [address] * SARS COV2, FLU A/B, RSV DETECT BY PCR (08/05/2023 12:09 EDT) FLU A RNA Result (FLARES) Negative Negative 08/05/2023 13:03 EDT [facility] FLU B RNA Result (FLBRES) Negative Negative 08/05/2023 13:03 EDT [facility] RSV RNA Result (RSVRES) Negative Negative 08/05/2023 13:03 EDT [facility] COVID-19 rt-PCR Result Negative Negative 08/05/2023 13:03 EDT [facility] Comment: Negative results do not preclude 2019-nCoV infection and should not be used as the sole basis for treatment or other patient management decisions. Negative results must be combined with clinical observations, patient history, and epidemiological information. Performed on the [employer] GeneXpert Instrument Swab NASOPHARYNGEAL STRUCTURE / Unknown Swab / Unknown 08/05/2023 12:09 EDT 08/05/2023 12:23 EDT Shanthi Tom MD PhD MICROBIOLOGY - GENE RAL ORDERABLES Performing Organization Address [facility] Co de Phone Number [facility] [address] [place] [phone] * (ABNORMAL) COMPLETE BLOOD COUNT AND DIFFERENTIAL (08/05/2023 8:25 EDT) WBC 8.75 4.00 - 10.40 K/cmm 08/05/2023 8:52 [facility] RBC 3.02(L) 4.36 - 5.78 M/cmm 08/05/2023 8:52 [facility] Hemoglobin 9.2(L) 13.8 - 17.3 g/dL 08/05/2023 8:52 [facility] HCT 28.3(L) 39.5 - 50.2 % 08/05/2023 8:52 [facility] MCV 94 81 - 95 fL 08/05/2023 8:52 [facility] MCH 30.5 27.6 - 33.0 pg 08/05/2023 8:52 [facility] MCHC 32.5(L) 32.8 - 36.4 g/dL 08/05/2023 8:52 [facility] RDW-CV 23.9(H) <14.2 % 08/05/2023 8:52 [facility] RDW-SD 81.0(H) <46.0 fl 08/05/2023 8:52 [facility] PLT 323 141 - 377 K/count includes the [facility] 08/05/2023 8:52 [facility] MPV 9.6 9.5 - 12.7 fL 08/05/2023 8:52 [facility] % Neutrophils 76.1 % 08/05/2023 8:52 [facility] % Lymphocytes 10.3 % 08/05/2023 8:52 [facility] % Monocytes 9.3 % 08/05/2023 8:52 [facility] % Eosinophils 2.6 % 08/05/2023 8:52 [facility] % Basophils 1.5 % 08/05/2023 8:52 [facility] % Immature Grans 0.2 % 08/05/19 8:52 [facility] Absolute Neutrophils 6.66 2.20 - 8.85 K/cmm 08/05/2023 8:52 [facility] Absolute Lymphocytes 0.90(L) 1.09 - 3.30 K/cmm 08/05/2023 8:52 EDT [facility] Absolute Monocytes 0.81(H) 0.10 - 0.80 K/cmm 08/05/2023 8:52 EDT [facility] Absolute Eosinophils 0.23 0.03 - 0.61 K/cmm 08/05/2023 8:52 EDT [facility] ABS Basophils 0.13(H) 0.01 - 0.11 K/cmm 08/05/2023 8:52 EDT [facility] Absolute Immature Grans 0.02 0.00 - 0.06 K/cm 08/05/2023 8:52 T [facility] Type of Differential: Auto 08/05/2023 8:52 EDT [facility] Blood VENOUS BLOOD / Unknown Venipuncture / Unknown 08/05/2023 8:25 EDT 08/05/2023 8:39 EDT Shanthi Tom MD PhD PACKAGES & DNA PROB E ORDERABLES Performing Organization Address City/[facility] Co de Phone Number [facility] [address] [place] [address] * BACTERIAL CULTURE, BLOOD (08/05/2023 6:28 EDT) Organism ID No Growth at 5 days 08/10/2023 8:01 EDT [facility] Blood VENOUS BLOOD / Unknown Venipuncture / Unknown 08/05/2023 6:28 EDT 08/05/2023 7:47 EDT Dalia Lim MD MICROBIOLOGY - GENE RAL ORDERABLES Performing Organization Address [facility] Co de Phone Number [facility] [address] [place] [address] * BACTERIAL CULTURE, BLOOD (08/05/2023 6:28 EDT) Organism ID No Growth at 5 days 08/10/2023 8:01 EDT [facility] Blood VENOUS BLOOD / Unknown Venipuncture / Unknown 08/05/2023 6:28 EDT 08/05/2023 7:48 EDT Dalia Lim MD MICROBIOLOGY - GENE [facility] ORDERABLES [facility] [address], [place] [id number] * (ABNORMAL) HEPATIC FUNCTION PANEL (ALB,ALK PHOS,ALT,AST,DBIL,TOT BETO,TOT PROT) (08/05/2023 6:27 EDT) Total Protein 7.6 6.3 - 8.2 g/dL 024 12:04 [facility] Albumin 3.8 3.4 - 4.9 g/dL 08/05/2023 12:04 [facility] Bilirubin, Total 1.7(H) <1.4 mg/dL 08/05/19 24 12:04 [facility] Conjugated Bilirubin 0.0 <=0.3 mg/dL 08/05/2023 12:04 [facility] Unconjugated Bilirubin 0.3 <=1.1 mg/dL 08/05/2023 12:04 [facility] Delta Bilirubin 1.4 Not Established mg/dL 08/05/2023 12:04 [facility] Comment:Delta Bilirubin occu rs in extended conjugated hyperbilirubinemia. Alkaline Phosphatase 81 38 - 126 U/L 08/05/2023 12:04 [facility] ALT 23 <50 U/L 08/05/2023 12:04 [facility] AST 36 15 - 46 U/L 08/05/2023 12:04 [facility] Calculated Total Bilirubin 0.3 <1.4 mg/dL 08/05/2023 12:04 [facility] Blood VENOUS BLOOD / Unknown Venipuncture / Unknown 08/05/2023 6:27 EDT 08/05/2023 6:40 EDT Shanthi Tom MD PhD CHEMISTRY & BLOOD G ORDERABLES Performing Organization Address [facility] Co de Phone Number [facility] [address], [place] [phone] * (ABNORMAL) NT PRO BNP (08/05/2023 6:27 EDT) NT-pro BNP 5,420(H) <299 pg/mL 08/05/2023 8:01 EDT [facility] Comment: In the acute setting NT-proBNP values <300 pg/mL have a 98% NPV for excluding acute heart failure. In outpatient populations, NT-proBNP values <125 have a 99% NPV for excluding heart failure. Blood VENOUS BLOOD / Unknown Venipuncture / Unknown 08/05/2023 6:27 EDT 08/05/2023 6:40 EDT Shanthi Tom MD PhD CHEMISTRY & BLOOD G ORDERABLES Performing Organization Address [facility] de Phone Number [facility] [address] [place] [phone] * (ABNORMAL) C REACTIVE PROTEIN (08/05/2023 6:27 EDT) C-Reactive Protein 27.5(H) <10.0 mg/L 08/05/2023 7:48 EDT [facility] Blood VENOUS BLOOD / Unknown Venipuncture / Unknown 08/05/2023 6:27 EDT 08/05/2023 6:40 EDT Shanthi Tom MD PhD CHEMISTRY & BLOOD G ORDERABLES Performing Organization Address [facility] Co de Phone Number [facility] [address], [place] [phone] * MAGNESIUM (08/05/2023 6:27 EDT) Magnesium 1.7 1.7 - 2.8 mg/dL 08/05/2023 7:36 EDT [facility] Blood VENOUS BLOOD / Unknown Venipuncture / Unknown 08/05/2023 6:27 EDT 08/05/2023 6:40 EDT Shanthi Tom MD PhD CHEMISTRY & BLOOD G ORDERABLES Performing Organization Address [facility] de Phone Number [facility] [address] [place] [address] * HEPARIN LEVEL - UNFRACTIONATED HEPARIN (08/05/2023 6:27 EDT) Heparin Level-UFH 0.40 Therapeutic Range: 0.30 - 0.70 IU/mL 08/05/2023 6:58 EDT [facility] Comment:Unfractionated hepar in therapeutic range = 0.3-0.7 IU/ml - This test is not intended for monitoring direct Xa inhibitors, direct thrombin inhibitors, or fondaparinux.- Exogenous ATIII is NOT supplied in this assay. For unexpected or persistently low levels, consider measuring patient's ATIII level. Results will be overestimated in the presence of direct Xa inhibitors (rivaroxaban, apixaban, edoxaban). Blood VENOUS BLOOD / Unknown Venipuncture / Unknown 08/05/2023 6:27 EDT 08/05/2023 6:36 EDT Eliu Rene MD HEMATOLOGY & PF4 ORD ERABLES Performing Organization Address City/[facility]/ZIP Co de Phone Number [facility] [address] [place] [address] * (ABNORMAL) BASIC METABOLIC PANEL (BMP) (08/05/2023 6:27 EDT) Sodium 134(L) 136 - 145 mmol/L 08/05/2023 7:07 EDT [facility] Potassium 4.1 3.5 - 5.0 mmol/L 08/05/2023 7:07 EDT [facility] Chloride 103 96 - 110 mmol/L [facility] CO2 Total 17(L) 22 - 32 mmol/L 08/05/2023 7:07 [facility] Anion Gap 14 5 - 14 mmol/L 08/05/2023 7:07 [facility] Glucose 99 70 - 99 mg/dl 08/05/2023 7:07 [facility] Calcium 9.4 8.5 - 10.5 mg/dL 08/05/2023 7:07 [facility] BUN 27(H) 10 - 26 mg/dL 08/05/2023 7:07 [facility] Creatinine 2.29(H) 0.66 - 1.25 mg/dL 08/05/2023 7:07 [facility] eGFR 30(L) >60 mL/min/1.73 m2 08/05/2023 7:07 [facility] Blood VENOUS BLOOD / Unknown Venipuncture / Unknown 08/05/2023 6:27 EDT 08/05/2023 6:40 EDT Shanthi Tom MD PhD CHEMISTRY & BLOOD G ORDERABLES [facility] [address], [place] [id number] * HEPARIN LEVEL - UNFRACTIONATED HEPARIN (08/04/2023 22:49 EDT) Heparin Level-UFH 0.45 Therapeutic Range: 0.30 - 0.70 IU/mL 08/04/2023 23:40 EDT [facility] Comment:Unfractionated hepar in therapeutic range = 0.3-0.7 IU/ml - This test is not intended for monitoring direct Xa inhibitors, direct thrombin inhibitors, or fondaparinux.- Exogenous ATIII is NOT supplied in this assay. For unexpected or persistently low levels, consider measuring patient's ATIII level. Results will be overestimated in the presence of direct Xa inhibitors (rivaroxaban, apixaban, edoxaban). Blood VENOUS BLOOD / Unknown Venipuncture / Unknown 08/04/2023 22:49 EDT 08/04/2023 23:19 EDT Lori Angel DO HEMATOLOGY & PF4 ORD ERABLES [facility] [address] [place] [address] * MR HEAD WO CONTRAST (08/04/2023 20:47 EDT) Anatomical Region Laterality Modality Head Magnetic Resonan ce 08/05/2023 0:12 EDT Impressions 08/05/2023 0:12 EDT No acute intracranial abnormality. Specifically, no acute infarct. I have personally reviewed the images and the above interpretation and agree with the findings. [id number] Narrative 08/05/2023 0:12 EDT EXAM: MRI HEAD WO CONTRAST HISTORY: sudden onset R hand weakness 6/1 AM, code stroke called; sudden onset R hand weakness 6/1 AM, code stroke called; TECHNIQUE: MRI head without contrast. Structured report code: [id number] COMPARISON: MR head 06/28/2023, CTA head and neck 08/04/2023 FINDINGS: Multiple sequences are motion degraded, however remain diagnostic. PARENCHYMA: No evidence of infarction. No parenchymal hemorrhage. No mass or shift of structures across the midline. Diffuse parenchymal volume loss. Patchy T2 hyperintensities in the supratentorial white matter, non-specific, but likely representing moderate chronic microangiopathic changes. EXTRA-AXIAL SPACES: No extra-axial collection. No extra-axial mass. VENTRICLES: No obstructive hydrocephalus. VESSELS: The flow voids are normal. Redemonstrated right frontal lobe developmental venous anomaly. BONES: Mild T2/FLAIR hyperintensity and T1 hypointensity similar to prior. Apparent restricted diffusion is less apparent compared to prior. ORBITS: No significant abnormality. PARANASAL SINUSES/MASTOID AIR CELLS: Some layering secretions in the sphenoid sinus. EXTRACRANIAL SOFT TISSUES: Unremarkable. Resulting Agency Comment [id number] Procedure Note Troy Slaughter MD - 08/05/2023 EXAM: MRI HEAD WO CONTRAST HISTORY: sudden onset R hand weakness 6/1 AM, code stroke called; suddenonset R hand weakness 6/1 AM, code stroke called; TECHNIQUE: MRI head without contrast. Structured report code: [id number] COMPARISON: MR head 06/28/2023, CTA head and neck 08/04/2023 FINDINGS: Multiple sequences are motion degraded, however remain diagnostic. PARENCHYMA: No evidence of infarction. No parenchymal hemorrhage. No mass or shift ofstructures across the midline. Diffuse parenchymal volume loss. Patchy [id number] in the supratentorial white matter, non-specific, butlikely representing moderate chronic microangiopathic changes. EXTRA-AXIAL SPACES: No extra-axial collection. No extra-axial mass. VENTRICLES: No obstructive hydrocephalus. VESSELS: The flow voids are normal. Redemonstrated right frontal lobe developmentalvenous anomaly. BONES: Mild T2/FLAIR hyperintensity and T1 hypointensity similar to prior.Apparent restricted diffusion is less apparent compared to prior. ORBITS: No significant abnormality. PARANASAL SINUSES/MASTOID AIR CELLS: Some layering secretions in the sphenoid sinus. EXTRACRANIAL SOFT TISSUES: Unremarkable. IMPRESSION No acute intracranial abnormality. Specifically, no acute infarct. I have personally reviewed the images and the above interpretation andagree with the findings. [id number] Eliu Rene [place] [facility] [place] * (ABNORMAL) BASIC METABOLIC PANEL (BMP) (08/04/2023 9:55 EDT) Sodium 134(L) 136 - 145 mmol/L 08/04/2023 10:57 [facility] Potassium 4.3 3.5 - 5.0 mmol/L 08/04/2023 10:57 [facility] Chloride 101 96 - 110 mmol/L 08/04/2023 10:57 [facility] CO2 Total 19(L) 22 - 32 mmol/L 08/04/2023 10:57 [facility] Anion Gap 14 5 - 14 mmol/L 08/04/2023 10:57 [facility] Glucose 86 70 - 99 mg/dl 08/04/2023 10:57 [facility] Calcium 9.0 8.5 - 10.5 mg/dL 08/04/2023 10:57 [facility] BUN 29(H) 10 - 26 mg/dL 08/04/2023 10:57 EDT [facility] Creatinine 2.42(H) 0.66 - 1.25 mg/dL 08/04/2023 10:57 EDT [facility] eGFR 28(L) >60 mL/min/1.73 m2 08/04/2023 10:57 EDT [facility] Blood VENOUS BLOOD / Unknown Venipuncture / Unknown 08/04/2023 9:55 EDT 08/04/2023 10:23 EDT Shanthi Tom MD PhD CHEMISTRY & BLOOD G ORDERABLES [facility] [address], [place] [id number] * CT ANGIO HEAD NECK (08/04/2023 9:03 EDT) Anatomical Region Laterality Modality Head and Neck Computed Tomogra phy 08/04/2023 13:4 5 EDT Impressions 08/04/2023 13:[address] HEAD: Area of parenchymal hyperattenuation in the right frontal lobe corresponds with developmental venous anomaly seen on prior MRI 06/28/2023. Corresponding hyperattenuation with compatible with retained contrast within the developmental venous anomaly in the setting of patient recently having a contrast enhanced study 08/03/2023. No definite acute intracranial hemorrhage. A follow-up head CT head can be obtained to ensure resolution. CTA HEAD: No occlusion or severe stenosis of the major arterial vasculature of the head. CTA NECK: Moderate stenosis of the bilateral proximal ICAs. Focal severe stenosis of the left common carotid artery. STENOSIS REFERENCE NASCET CRITERIA: MILD: < 50% MODERATE: 50-69% SEVERE: 70-89% HAIRLINE/CRITICAL: 90-99% OCCLUDED: 100% There is a difference during the pulmonary resident report and the final report. 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 on 08/04/2023. I have personally reviewed the images and the above interpretation and agree with the findings. [id number] Narrative 08/04/2023 13:45 EDT EXAMS: CT HEAD WO CONTRAST CT ANGIOGRAM HEAD AND NECK WITH CONTRAST HISTORY: Left hand weakness, stroke code TECHNIQUE: CT of the head without contrast. CT angiogram of the head and neck with intravenous contrast. Maximal intensity projected reformatted images were obtained, adjusted on an independent workstation, and reviewed prior to interpretation. Structured report code: [email or web address] This CT used either dose modulation and/or iterative reconstruction techniques to lower radiation dose. COMPARISON: MR head without contrast 06/28/2023, CT head without contrast 06/25/2023 FINDINGS: CT HEAD: PARENCHYMA: No evidence of infarction. Patchy and confluent areas of hypoattenuation in the supratentorial white matter are nonspecific but likely represent the sequela of chronic microangiopathic ischemic disease. No parenchymal hemorrhage. No mass or shift of structures across the midline. EXTRA-AXIAL SPACES: There is an area of hyperattenuation in the right frontal lobe at the site of previously seen developmental venous anomaly on prior MRI 06/28/2023. Hyperattenuation is most compatible with retained contrast within the developmental venous anomaly given patient recently had a contrast-enhanced study 08/03/2023. No definite subarachnoid hemorrhage. VENTRICULAR SYSTEM: Normal size and configuration. No obstructive hydrocephalus. BONES: No concerning bone lesions. No evidence of fracture. There is diffuse osseous demineralization. ORBITS: Bilateral lens replacements. PARANASAL SINUSES/MASTOID AIR CELLS: Pneumatized secretions are present in the left sphenoid and right frontal sinuses. EXTRACRANIAL SOFT TISSUES: Unremarkable. CTA HEAD: ARTERIES: The intracranial internal carotid arteries, anterior cerebral arteries, middle cerebral arteries, and posterior cerebral arteries are patent, without severe stenosis or occlusion. The A1 segment of the right anterior cerebral artery is diminutive. The anterior communicating artery is present. Multifocal moderate stenosis of the intradural vertebral arteries. The proximal segments of the PICA, AICA, and SCA are patent. No aneurysms. VEINS: While evaluation of the veins is limited on arterial phase imaging, there is no evidence of dural venous sinus thrombosis. Diffuse hyperattenuation of the dural venous sinuses in the setting of recent contrast administration. CTA NECK: ARTERIES: There is a left-sided aortic arch. The left vertebral artery arises directly off of the aortic arch, a normal anatomic variant. Atherosclerosis of the brachiocephalic and subclavian arteries with mild stenosis. Noncalcified atherosclerosis of the common carotid arteries results in mild stenosis on the right and severe stenosis on the left (series 405 sagittal #97). Calcified and noncalcified atherosclerosis of the carotid bifurcations. Moderate stenosis of the bilateral proximal ICAs. Mild stenosis at the origin of the right vertebral artery. Moderate to severe stenosis at the origin of the left vertebral artery. VEINS: While evaluation of the veins is limited on arterial phase imaging, there is no evidence of venous thrombosis. NON-ANGIOGRAPHIC NECK FINDINGS: Bones: No fractures or concerning bone lesions. Multilevel degenerative changes are present in the spine. Cervical Soft Tissues: Unremarkable. Lung Apices: Mild interlobular septal thickening. Some scattered unchanged groundglass opacities in the right upper lobe when compared to CT chest 06/25/2023. Resulting Agency Comment [id number] Procedure Note Troy Slaughter MD - 08/04/2023 EXAMS: CT HEAD WO CONTRAST CT ANGIOGRAM HEAD AND NECK WITH CONTRAST HISTORY: Left hand weakness, stroke code TECHNIQUE: CT of the head without contrast. CT angiogram of the head andneck with intravenous contrast. Maximal intensity projected reformattedimages were obtained, adjusted on an independent workstation, and reviewedprior to interpretation. Structured report code: [email or web address] This CT used either dose modulation and/or iterative reconstructiontechniques to lower radiation dose. COMPARISON: MR head without contrast 06/28/2023, CT head without contrast06/25/2023 FINDINGS: CT HEAD: PARENCHYMA: No evidence of infarction. Patchy and confluent areas of hypoattenuationin the supratentorial white matter are nonspecific but likely representthe sequela of chronic microangiopathic ischemic disease. No parenchymalhemorrhage. No mass or shift of structures across the midline. EXTRA-AXIAL SPACES: There is an area of hyperattenuation in the right frontal lobe at the siteof previously seen developmental venous anomaly on prior MRI 06/28/2023.Hyperattenuation is most compatible with retained contrast within thedevelopmental venous anomaly given patient recently had acontrast-enhanced study 08/03/2023. No definite subarachnoid hemorrhage. VENTRICULAR SYSTEM: Normal size and configuration. No obstructive hydrocephalus. BONES: No concerning bone lesions. No evidence of fracture. There is diffuseosseous demineralization. ORBITS: Bilateral lens replacements. PARANASAL SINUSES/MASTOID AIR CELLS: Pneumatized secretions are present in the left sphenoid and right frontalsinuses. EXTRACRANIAL SOFT TISSUES: Unremarkable. CTA HEAD: ARTERIES: The intracranial internal carotid arteries, anterior cerebral arteries,middle cerebral arteries, and posterior cerebral arteries are patent,without severe stenosis or occlusion. The A1 segment of the right anteriorcerebral artery is diminutive. The anterior communicating artery is present. Multifocal moderate stenosis of the intradural vertebral arteries. The proximal segments of the PICA, AICA, and SCA are patent. No aneurysms. VEINS: While evaluation of the veins is limited on arterial phase imaging, thereis no evidence of dural venous sinus thrombosis. Diffuse hyperattenuationof the dural venous sinuses in the setting of recent contrastadministration. CTA NECK: ARTERIES: There is a left-sided aortic arch. The left vertebral artery arisesdirectly off of the aortic arch, a normal anatomic variant. Atherosclerosis of the brachiocephalic and subclavian arteries with mildstenosis. Noncalcified atherosclerosis of the common carotid arteries results inmild stenosis on the right and severe stenosis on the left (series 405sagittal #97). Calcified and noncalcified atherosclerosis of the carotid bifurcations.Moderate stenosis of the bilateral proximal ICAs. Mild stenosis at the origin of the right vertebral artery. Moderate tosevere stenosis at the origin of the left vertebral artery. VEINS: While evaluation of the veins is limited on arterial phase imaging, thereis no evidence of venous thrombosis. NON-ANGIOGRAPHIC NECK FINDINGS: Bones: No fractures or concerning bone lesions. Multilevel degenerative changesare present in the spine. Cervical Soft Tissues: Unremarkable. Lung Apices: Mild interlobular septal thickening. Some scattered unchanged groundglassopacities in the right upper lobe when compared to CT chest 06/25/2023. IMPRESSION CT HEAD: Area of parenchymal hyperattenuation in the right frontal lobe correspondswith developmental venous anomaly seen on prior MRI 06/28/2023.Corresponding hyperattenuation with compatible with retained contrastwithin the developmental venous anomaly in the setting of patient recentlyhaving a contrast enhanced study 08/03/2023. No definite acute intracranialhemorrhage. A follow-up head CT head can be obtained to ensureresolution. CTA HEAD: No occlusion or severe stenosis of the major arterial vasculature of thehead. CTA NECK: Moderate stenosis of the bilateral proximal ICAs. Focal severe stenosis of the left common carotid artery. STENOSIS REFERENCE NASCET CRITERIA: MILD: < 50% MODERATE: 50-69% SEVERE: 70-89% HAIRLINE/CRITICAL: 90-99% OCCLUDED: 100% There is a difference during the pulmonary resident report and the finalreport. Findings of a developmental venous anomaly in the right frontallobe with retained contrast rather than subarachnoid hemorrhage werediscussed with at 1:43 p.m. on 08/04/2023. I have personally reviewed the images and the above interpretation andagree with the findings. [id number] Eliu Rene MD IMG CT ORDERABLES * (ABNORMAL) POCT GLUCOSE, INTERFACED (08/04/2023 8:12 EDT) Glucose, POC 115(H) 70 - 100 mg/dL 08/04/2023 8:13 EDT [facility] HN LAB POC COMMENT (GLUCOSE) Test Performed by Nursing Services 08/04/2023 8:13 EDT [facility] Blood CAPILLARY BLOOD / Unknown 08/04/2023 8:12 EDT 08/04/2023 8:13 EDT Neelima Estrada MD POINT OF CARE TEST O RDERABLES [facility] [address] [place] [address] * CT ANGIO ABDOMEN PELVIS (08/03/2023 22:15 EDT) Anatomical Region Laterality Modality Body, Abdomen, Pelvis, Abdomen and Pelvis Computed Tomography 08/04/2023 9:11 EDT Impressions 08/04/2023 9:11 EDT New soft tissue density anterior to the left common femoral artery, presumably representing a hematoma status post removal of the previously existing left superficial femoral artery catheter. No evidence of bleeding or pseudoaneurysm. No findings of venous obstruction of either lower extremity. Chronic degenerative arterial disease as described above. Cardiomegaly. [id number] Narrative 08/04/2023 9:[address] Angiogram of the Abdomen and Pelvis CLINICAL HISTORY: Acute onset b/l lower extremity and pelvic edema edema and pain; please include field of view through proximal 1/3 of thighs; Acute onset b/l lower extremity and pelvic edema edema and pain; please include field of view through proximal 1/3 of thighs; TECHNIQUE: Helical computed tomography was performed through the abdomen and pelvis before and after the uneventful intravenous administration of iodinated contrast, including arterial and venous phase imaging. ??Oral contrast was not administered. Multiplanar reformatted images were generated from the source data. Maximum intensity projection and volume rendered 3-D reconstructions were generated/reviewed on an independent workstation. This CT utilized either dose modulation and/or iterative reconstruction techniques to lower radiation dose. COMPARISON: 25 June 2023 FINDINGS: VASCULAR STRUCTURES: The abdominal aorta is normal in course but slightly aneurysmal measuring 3.2 cm at the level of the SHANA origin. ?? The major mesenteric vessels in the abdomen, including the celiac axis, superior mesenteric artery, inferior mesenteric artery, and their respective branches, are patent but mildly to moderately stenosed secondary to chronic atherosclerotic disease. The renal arteries are patent bilaterally but diseased at their ostia bilaterally resulting in moderate stenosis The right common iliac artery is severely stenosed secondary to heavily calcified mature atherosclerotic disease. The internal, and external iliac arteries are chronically diseased but patent. The right common femoral artery is patent. The partially imaged right superficial femoral and profunda femoris arteries are patent. The left common, internal, and external iliac arteries are chronically diseased but patent. The left common femoral artery is patent. The partially imaged left superficial femoral and profunda femoris arteries are patent. New soft tissue density is seen immediately anterior to the lower left common femoral artery and proximal left superficial femoral artery. The previously seen left superficial femoral artery catheter is removed. No pseudoaneurysm identified. The imaged systemic venous structures are grossly within normal limits for degree of opacification. No venous stenosis or obstruction of either lower extremity. INFERIOR THORAX/LUNG BASES: The lung bases are unremarkable. There is no pleural effusion. The heart is globally enlarged in size but stable from prior exam. There is no pericardial effusion. Previously identified effusions and atelectasis have resolved. LIVER: The liver is normal in size and attenuation. No hepatic mass identified on arterial or venous phase imaging. The portal and hepatic veins are patent. GALLBLADDER AND BILIARY SYSTEM: The gallbladder is notable for multiple nonobstructive calcified calculi. There is no intrahepatic or extrahepatic biliary ductal dilatation. PANCREAS: Generally unremarkable save for small lenticular hypodensity in the head of the pancreas that is essentially unchanged since to June 2023 accounting for technique. No pancreatic ductal dilatation. SPLEEN: Normal in size and attenuation but demonstrates a stable irregular contour. ADRENAL GLANDS: ??Unremarkable. GENITOURINARY: The kidneys enhance normally. There is no hydroureteronephrosis. Both kidneys are atrophic and demonstrate stable cortical scarring. The bladder is slightly under distended but may demonstrate some hypertrophy. GASTROINTESTINAL: The large and small bowel is non-prepared and non-opacified; limiting diagnostic accuracy. The distal esophagus, stomach, small bowel, and large bowel are notable for stomach distention and colonic distention without gross evidence of obstruction. GENERAL: There is no free intraperitoneal air or fluid. Previously identified ascites has resolved. LYMPH NODES: No enlarged lymph nodes within the abdomen or pelvis. OSSEOUS STRUCTURES: No aggressive osseous lesions. Chronic thoracolumbar degenerative changes. SOFT TISSUES: New soft tissue density anterior to the left common femoral artery as described above. MANAGER BUSINESS PROCESS: No additional findings. Resulting Agency Comment [id number] Procedure Note Edouard Chavez MD - 08/04/2023 CT Angiogram of the Abdomen and Pelvis CLINICAL HISTORY: Acute onset b/l lower extremity and pelvic edema edemaand pain; please include field of view through proximal 1/3 of thighs;Acute onset b/l lower extremity and pelvic edema edema and pain; pleaseinclude field of view through proximal 1/3 of thighs; TECHNIQUE: Helical computed tomography was performed through the abdomenand pelvis before and after the uneventful intravenous administration ofiodinated contrast, including arterial and venous phase imaging. Oralcontrast was not administered. Multiplanar reformatted images weregenerated from the source data. Maximum intensity projection and volumerendered 3-D reconstructions were generated/reviewed on an independentworkstation. This CT utilized either dose modulation and/or iterative reconstructiontechniques to lower radiation dose. COMPARISON: 25 June 2023 FINDINGS: VASCULAR STRUCTURES: The abdominal aorta is normal in course but slightlyaneurysmal measuring 3.2 cm at the level of the SHANA origin. The major mesenteric vessels in the abdomen, including the celiac axis,superior mesenteric artery, inferior mesenteric artery, and theirrespective branches, are patent but mildly to moderately stenosedsecondary to chronic atherosclerotic disease. The renal arteries are patent bilaterally but diseased at their ostiabilaterally resulting in moderate stenosis The right common iliac artery is severely stenosed secondary to heavilycalcified mature atherosclerotic disease. The internal, and external iliacarteries are chronically diseased but patent. The right common femoralartery is patent. The partially imaged right superficial femoral andprofunda femoris arteries are patent. The left common, internal, and external iliac arteries are chronicallydiseased but patent. The left common femoral artery is patent. Thepartially imaged left superficial femoral and profunda femoris arteriesare patent. New soft tissue density is seen immediately anterior to thelower left common femoral artery and proximal left superficial femoralartery. The previously seen left superficial femoral artery catheter isremoved. No pseudoaneurysm identified. The imaged systemic venous structures are grossly within normal limits fordegree of opacification. No venous stenosis or obstruction of either lowerextremity. INFERIOR THORAX/LUNG BASES: The lung bases are unremarkable. There is nopleural effusion. The heart is globally enlarged in size but stable fromprior exam. There is no pericardial effusion. Previously identifiedeffusions and atelectasis have resolved. LIVER: The liver is normal in size and attenuation. No hepatic massidentified on arterial or venous phase imaging. The portal and hepaticveins are patent. GALLBLADDER AND BILIARY SYSTEM: The gallbladder is notable for multiplenonobstructive calcified calculi. There is no intrahepatic or extrahepaticbiliary ductal dilatation. PANCREAS: Generally unremarkable save for small lenticular hypodensity inthe head of the pancreas that is essentially unchanged since June2023 accounting for technique. No pancreatic ductal dilatation. SPLEEN: Normal in size and attenuation but demonstrates a stable irregularcontour. ADRENAL GLANDS: Unremarkable. GENITOURINARY: The kidneys enhance normally. There is nohydroureteronephrosis. Both kidneys are atrophic and demonstrate stablecortical scarring. The bladder is slightly under distended but maydemonstrate some hypertrophy. GASTROINTESTINAL: The large and small bowel is non-prepared andnon-opacified; limiting diagnostic accuracy. The distal esophagus,stomach, small bowel, and large bowel are notable for stomach distentionand colonic distention without gross evidence of obstruction. GENERAL: There is no free intraperitoneal air or fluid. Previouslyidentified ascites has resolved. LYMPH NODES: No enlarged lymph nodes within the abdomen or pelvis. OSSEOUS STRUCTURES: No aggressive osseous lesions. Chronic thoracolumbardegenerative changes. SOFT TISSUES: New soft tissue density anterior to the left common femoralartery as described above. MANAGER BUSINESS PROCESS: No additional findings. IMPRESSION New soft tissue density anterior to the left common femoral artery,presumably representing a hematoma status post removal of the previouslyexisting left superficial femoral artery catheter. No evidence of bleedingor pseudoaneurysm. No findings of venous obstruction of either lowerextremity. Chronic degenerative arterial disease as described above. Cardiomegaly. [id number] Shanthi Tom MD PhD IMG CT ORDERABLES * US LOWER VENOUS DUPLEX (DVT) BILATERAL (08/03/2023 15:53 EDT) Anatomical Region Laterality Modality Vascular Ultrasound 08/03/2023 16:3 5 EDT Impressions 08/03/2023 16:35 EDT 1. ??No sonographic evidence of deep venous thrombosis in either lower extremity. 2. ??Left groin hematomas have decreased in size compared to ultrasound from 07/25/2023 [id number] Narrative 08/03/2023 16:35 EDT US LOWER VENOUS DUPLEX (DVT) BILATERAL ??08/03/2023 3:22 PM SIGNS AND SYMPTOMS/COMMENTS: ??Acute severe swelling of b/l lower extremeties; COMPARISON: Left groin ultrasound from 07/25/2023. Right lower extremity DVT study from 07/07/2023. CT angiogram left lower extremity from 07/01/2023. TECHNIQUE: Grayscale, cine, color Doppler, and spectral tracing images were obtained of the deep venous system of both lower extremities. FINDINGS: RIGHT LEG: Deep veins above the knee: ? External Iliac Vein: Normal compression. Normal color Doppler flow. ? Common Femoral Vein: Normal compression. Normal color Doppler flow. ? Deep Femoral Vein: Normal compression. Normal color Doppler flow. ? Proximal Femoral Vein: Normal compression. Normal color Doppler flow. ? Mid Femoral Vein: Normal compression. Normal color Doppler flow. ? Distal Femoral Vein: Normal compression. Normal color Doppler flow. ? Popliteal Vein: Normal compression. Normal color Doppler flow. ?? Deep veins below the knee: ? Imaged Posterior Tibial Vein(s): Normal compression. Normal color Doppler flow. ? Imaged Peroneal Vein(s): Normal compression. Normal color Doppler flow. ?? Superficial veins: ? Imaged Great Saphenous Vein: Normal compression. Normal color Doppler flow. Spectral Doppler: Normal respiratory phasicity and augmentation. Other: No additional finding. LEFT LEG: Deep veins above the knee: ? External Iliac Vein: Normal compression. Normal color Doppler flow. ? Common Femoral Vein: Normal compression. Normal color Doppler flow. ? Deep Femoral Vein: Normal compression. Normal color Doppler flow. ? Proximal Femoral Vein: Normal compression. Normal color Doppler flow. ? Mid Femoral Vein: Normal compression. Normal color Doppler flow. ? Distal Femoral Vein: Normal compression. Normal color Doppler flow. ? Popliteal Vein: Normal compression. Normal color Doppler flow. ?? Deep veins below the knee: ? Imaged Posterior Tibial Vein(s): Normal compression. Normal color Doppler flow. ? Imaged Peroneal Vein(s): Normal compression. Normal color Doppler flow. ?? Superficial veins: ? Imaged Great Saphenous Vein: Normal compression. Normal color Doppler flow. Spectral Doppler: Normal respiratory phasicity and augmentation. Other: There are 2 hematomas redemonstrated in the left groin. These now measure 6.5 x 2.9 x 4.6 cm, previously measuring 7.6 x 3.3 x 4.6 cm and 2.2 x 1.1 x 2.4 cm previously measuring 2.6 x 2.4 x 1.4 cm. Resulting Agency Comment [id number] Procedure Note aDsha Baca MD - 08/03/2023 US LOWER VENOUS DUPLEX (DVT) BILATERAL 08/03/2023 3:22 PM SIGNS AND SYMPTOMS/COMMENTS: Acute severe swelling of b/l lowerextremeties; COMPARISON: Left groin ultrasound from 07/25/2023. Right lower extremityDVT study from 07/07/2023. CT angiogram left lower extremity from07/01/2023. TECHNIQUE: Grayscale, cine, color Doppler, and spectral tracing imageswere obtained of the deep venous system of both lower extremities. FINDINGS: RIGHT LEG: Deep veins above the knee: External Iliac Vein: Normal compression. Normal color Doppler flow. Common Femoral Vein: Normal compression. Normal color Doppler flow. Deep Femoral Vein: Normal compression. Normal color Doppler flow. Proximal Femoral Vein: Normal compression. Normal color Doppler flow. Mid Femoral Vein: Normal compression. Normal color Doppler flow. Distal Femoral Vein: Normal compression. Normal color Doppler flow. Popliteal Vein: Normal compression. Normal color Doppler flow. Deep veins below the knee: Imaged Posterior Tibial Vein(s): Normal compression. Normal colorDoppler flow. Imaged Peroneal Vein(s): Normal compression. Normal color Dopplerflow. Superficial veins: Imaged Great Saphenous Vein: Normal compression. Normal color Dopplerflow. Spectral Doppler: Normal respiratory phasicity and augmentation. Other: No additional finding. LEFT LEG: Deep veins above the knee: External Iliac Vein: Normal compression. Normal color Doppler flow. Common Femoral Vein: Normal compression. Normal color Doppler flow. Deep Femoral Vein: Normal compression. Normal color Doppler flow. Proximal Femoral Vein: Normal compression. Normal color Doppler flow. Mid Femoral Vein: Normal compression. Normal color Doppler flow. Distal Femoral Vein: Normal compression. Normal color Doppler flow. Popliteal Vein: Normal compression. Normal color Doppler flow. Deep veins below the knee: Imaged Posterior Tibial Vein(s): Normal compression. Normal colorDoppler flow. Imaged Peroneal Vein(s): Normal compression. Normal color Dopplerflow. Superficial veins: Imaged Great Saphenous Vein: Normal compression. Normal color Dopplerflow. Spectral Doppler: Normal respiratory phasicity and augmentation. Other: There are 2 hematomas redemonstrated in the left groin. These nowmeasure 6.5 x 2.9 x 4.6 cm, previously measuring 7.6 x 3.3 x 4.6 cm and2.2 x 1.1 x 2.4 cm previously measuring 2.6 x 2.4 x 1.4 cm. IMPRESSION 1. No sonographic evidence of deep venous thrombosis in either lowerextremity. 2. Left groin hematomas have decreased in size compared to ultrasoundfrom 07/25/2023 [id number] Shanthi Tom MD PhD IMG US VASCULAR ORD ERABLES * (ABNORMAL) NT PRO BNP (08/03/2023 12:09 EDT) NT-pro BNP 3,480(H) <299 pg/mL 08/03/2023 13:49 [facility] Comment: In the acute setting NT-proBNP values <300 pg/mL have a 98% NPV for excluding acute heart failure. In outpatient populations, NT-proBNP values <125 have a 99% NPV for excluding heart failure. Blood VENOUS BLOOD / Unknown Venipuncture / Unknown 08/03/2023 12:09 EDT 08/03/2023 12:21 EDT Shanthi Tom MD PhD CHEMISTRY & BLOOD G ORDERABLES [facility] [address] [place] [address] * (ABNORMAL) BASIC METABOLIC PANEL (BMP) (08/03/2023 12:09 EDT) Pathologist [facility] Sodium 136 136 - 145 mmol/L 08/03/2023 12:51 [facility] Potassium 5.0 3.5 - 5.0 mmol/L 08/03/2023 12:51 [facility] Chloride 106 96 - 110 mmol/L 08/03/2023 12:51 [facility] CO2 Total 15(L) 22 - 32 mmol/L 08/03/2023 12:51 [facility] Anion Gap 15(H) 5 - 14 mmol/L 08/03/2023 12:51 [facility] Glucose 100(H) 70 - 99 mg/dl 08/03/2023 12:51 [facility] Calcium 9.2 8.5 - 10.5 mg/dL 08/03/2023 12:51 [facility] BUN 29(H) 10 - 26 mg/dL 08/03/2023 12:51 [facility] Creatinine 2.02(H) 0.66 - 1.25 mg/dL 08/03/2023 12:51 [facility] eGFR 35(L) >60 mL/min/1.73 m2 08/03/2023 12:51 [facility] Blood VENOUS BLOOD / Unknown Venipuncture / Unknown 08/03/2023 12:09 EDT 08/03/2023 12:21 EDT Shanthi Tom MD PhD CHEMISTRY & BLOOD G ORDERABLES Performing Organization Address City/State/[facility] Co de Phone Number [facility] [address] [place] [address] * (ABNORMAL) COMPLETE BLOOD COUNT (08/02/2023 5:44 EDT) WBC 10.33 4.00 - 10.40 K/cmm 08/02/2023 6:16 [facility] RBC 3.01(L) 4.36 - 5.78 M/cmm 08/02/2023 6:16 [facility] Hemoglobin 9.2(L) 13.8 - 17.3 g/dL 08/02/2023 6:16 [facility] HCT 28.9(L) 39.5 - 50.2 % 08/02/2023 6:16 [facility] MCV 96(H) 81 - 95 fL 08/02/2023 6:16 [facility] MCH 30.6 27.6 - 33.0 pg 08/02/2023 6:16 [facility] MCHC 31.8(L) 32.8 - 36.4 g/dL 08/02/2023 6:16 [facility] RDW-CV 27.0(H) <14.2 % 08/02/2023 6:16 [facility] RDW-SD 91.6(H) <46.0 fl 08/02/2023 6:16 [facility] PLT 291 141 - 377 K/cmm 08/02/2023 6:16 [facility] MPV 9.9 9.5 - 12.7 fL 08/02/2023 6:16 EDT [facility] Blood VENOUS BLOOD / Unknown Venipuncture / Unknown 08/02/2023 5:44 EDT 08/02/2023 6:09 EDT Shanthi Tom MD PhD HEMATOLOGY & PF4 OR DERABLES Performing Organization Address [facility] [place] de Phone Number [facility] [address] [place] [address] * (ABNORMAL) MAGNESIUM (08/02/2023 5:44 EDT) Magnesium 1.6(L) 1.7 - 2.8 mg/dL 08/02/2023 7:02 EDT [facility] Blood VENOUS BLOOD / Unknown Venipuncture / Unknown 08/02/2023 5:44 EDT 08/02/2023 6:34 EDT Shanthi Tom MD PhD CHEMISTRY & BLOOD G ORDERABLES Performing Organization Address [facility] de Phone Number [facility] [address] [place] [address] * (ABNORMAL) BASIC METABOLIC PANEL (BMP) (08/02/2023 5:44 EDT) Sodium 139 136 - 145 mmol/L 08/02/2023 7:02 T [facility] Potassium 5.2(H) 3.5 - 5.0 mmol/L 08/02/2023 7:02 [facility] Chloride 104 96 - 110 mmol/L 08/02/2023 7:02 [facility] CO2 Total 21(L) 22 - 32 mmol/L 08/02/2023 7:02 [facility] Anion Gap 14 5 - 14 mmol/L 08/02/2023 7:02 [facility] Glucose 82 70 - 99 mg/dl 08/02/2023 7:02 [facility] Calcium 9.6 8.5 - 10.5 mg/dL 08/02/2023 7:02 EDT [facility] BUN 25 10 - 26 mg/dL 08/02/2023 7:02 EDT [facility] Creatinine 1.79(H) 0.66 - 1.25 mg/dL 08/02/2023 7:02 EDT [facility] eGFR 41(L) >60 mL/min/1.73 m2 08/02/2023 7:02 EDT [facility] Blood VENOUS BLOOD / Unknown Venipuncture / Unknown 08/02/2023 5:44 EDT 08/02/2023 6:34 EDT Shanthi Tom MD PhD CHEMISTRY & BLOOD G ORDERABLES Performing Organization Address [facility]/ZIP Co de Phone Number [facility] [address] [place] [address] * (ABNORMAL) BACTERIAL CULTURE, URINE (08/01/2023 11:37 EDT) Organism ID [id number], [id number] to 100,000 CFU/ml Lydia albicans(A) 08/03/2023 12:10 EDT [facility] Organism ID Less than 10,000 CFU/ml usual urogenital deanna. 08/03/2023 12:10 EDT [facility] Urine URINE SPECIMEN OBTAINED BY CLEAN CATCH PROCEDURE / Unknown Urine Collect / Unknown 08/01/2023 11:37 EDT 08/01/2023 11:54 EDT Shanthi Tom MD PhD MICROBIOLOGY - GENE RAL ORDERABLES Performing Organization Address [facility]/ZIP Co de Phone Number [facility] [address] [place] [address] * (ABNORMAL) UA CHEMICAL & SEDIMENT + REFLEX TO CULTURE (08/01/2023 11:37 EDT) Color UA Yellow Colorless, Yellow 08/01/2023 11:54 EDT [facility] Clarity UA Turbid(A) Clear 08/01/2023 11:54 EDT [facility] Glucose UA 2+(A) Negative mg/dL 08/01/2023 11:54 [facility] Bilirubin UA Negative Negative 08/01/2023 11:54 [facility] Ketones UA Negative Negative 08/01/2023 11:54 [facility] Specific [place], Urine 1.015 1.001 - 1.030 08/01/2023 11:54 [facility] Blood UA 1+(A) Negative 08/01/2023 11:54 [facility] Urobilinogen UA 1.0 0.2-1.0 mg/dL mg/dL 08/01/2023 11:54 [facility] Nitrite UA Negative Negative 08/01/2023 11:54 [facility] Leukocyte Esterase UA 3+(A) Negative 08/01/2023 11:54 [facility] Protein UA 1+(A) Negative mg/dL 08/01/2023 11:54 [facility] pH, UA 6.5 <8.5 08/01/2023 11:54 [facility] Urine RBC Count, Auto 0 - 2 0 - 2 Cells/HPF 08/01/2023 11:54 [facility] Urine WBC Count, Auto >50(A) 0 - 3 Cells/HPF 08/01/2023 11:54 [facility] Urine Squamous Count, Auto None Seen None Seen Cells/HPF 08/01/2023 11:54 [facility] Urine Hyaline Cast Count, Auto <=10 <=10 Casts/LPF 08/01/2023 11:54 [facility] Urine Bacteria Count, Auto None Seen None Seen Bacteria/HPF 08/01/2023 11:54 [facility] Urine URINE SPECIMEN OBTAINED BY CLEAN CATCH PROCEDURE / Unknown Urine Collect / Unknown 08/01/2023 11:37 EDT 08/01/2023 11:47 [facility] - 08/01/2023 11:54 EDT A Urine Culture test has been reflexively ordered based on result criteria from the Urine Sediment Analysis. Urine Sediment Analysis results are unreliable on urines that are unrefrigerated for >2 hrs or refrigerated >8 hrs. Shanthi Tom MD PhD URINALYSIS ORDERABL ES [facility] [address] [place] [address] * US SCROTUM WITH LIMITED DUPLEX (07/31/2023 10:10 EDT) Anatomical Region Laterality Modality Body Ultrasound 07/31/2023 10:2 2 EDT Impressions 07/31/2023 10:22 EDT Findings/Impression: Right testicle: Arterial and venous Doppler waveforms and color flow are normal in the right testicle. Left testicle: Arterial and venous Doppler waveforms and color flow are normal in the left testicle. GRAYSCALE: Technique: Grayscale ultrasound of the scrotum was performed. Indication for Grayscale: L scrotal pain and swelling, possibly related to resolving L inner thigh hematoma; Findings: Right Testicle: ??The right testis measures 4.4 x 2.3 x 2.4 cm, for an estimated total testis volume of 12.8 mL. Homogeneous echogenicity. No intratesticular lesion. Right Epididymis: The right epididymal head measures 0.6 x 0.8 x 1.1 cm. Homogeneous echogenicity. Normal vascularity on color Doppler. Left Testicle: The left testis measures 3.9 x 2.1 x 2.9 cm, for an estimated total testis volume of 12.4 mL. Homogeneous echogenicity. No intratesticular lesion. Left Epididymis: The left epididymal head measures 0.7 x 1.1 x 0.3 cm. Homogeneous echogenicity. Normal vascularity on color Doppler. Incidental note of small 4 mm epididymal cyst. Spermatic Cords: Straight bilaterally. Scrotal Sac: Trace left hydrocele. No varicocele present. Incidental note of scrotal monique on the left measuring 3 mm in diameter. Scrotal Skin: No skin thickening. IMPRESSION: 1. ??No intratesticular lesion or evidence of torsion. 2. ??Small left hydrocele. 3. ??Small left epididymal cyst. [id number] Narrative 07/31/2023 10:22 EDT US SCROTUM WITH LIMITED DUPLEX ??07/31/2023 9:40 AM SIGNS AND SYMPTOMS/COMMENTS: L scrotal pain and swelling, possibly related to resolving L inner thigh hematoma; COMPARISON: Lower extremity ultrasound on 07/25/2023 DUPLEX: Indication For Duplex: Concern for testicular torsion and/or mass Technique: Color and spectral Doppler ultrasound of the scrotum was performed. Resulting Agency Comment [id number] Procedure Note Ruben Ponce MD - 07/31/2023 US SCROTUM WITH LIMITED DUPLEX 07/31/2023 9:40 AM SIGNS AND SYMPTOMS/COMMENTS: L scrotal pain and swelling, possibly relatedto resolving L inner thigh hematoma; COMPARISON: Lower extremity ultrasound on 07/25/2023 DUPLEX: Indication For Duplex: Concern for testicular torsion and/or mass Technique: Color and spectral Doppler ultrasound of the scrotum wasperformed. IMPRESSION Findings/Impression: Right testicle: Arterial and venous Doppler waveforms and color flow arenormal in the right testicle. Left testicle: Arterial and venous Doppler waveforms and color flow arenormal in the left testicle. GRAYSCALE: Technique: Grayscale ultrasound of the scrotum was performed. Indication for Grayscale: L scrotal pain and swelling, possibly related toresolving L inner thigh hematoma; Findings: Right Testicle: The right testis measures 4.4 x 2.3 x 2.4 cm, for anestimated total testis volume of 12.8 mL. Homogeneous echogenicity. Nointratesticular lesion. Right Epididymis: The right epididymal head measures 0.6 x 0.8 x 1.1 cm.Homogeneous echogenicity. Normal vascularity on color Doppler. Left Testicle: The left testis measures 3.9 x 2.1 x 2.9 cm, for anestimated total testis volume of 12.4 mL. Homogeneous echogenicity. Nointratesticular lesion. Left Epididymis: The left epididymal head measures 0.7 x 1.1 x 0.3 cm.Homogeneous echogenicity. Normal vascularity on color Doppler. Incidentalnote of small 4 mm epididymal cyst. Spermatic Cords: Straight bilaterally. Scrotal Sac: Trace left hydrocele. No varicocele present. Incidental noteof scrotal monique on the left measuring 3 mm in diameter. Scrotal Skin: No skin thickening. IMPRESSION: 1. No intratesticular lesion or evidence of torsion. 2. Small left hydrocele. 3. Small left epididymal cyst. [id number] Shanthi Tom MD PhD IMG US ORDERABLES * (ABNORMAL) COMPLETE BLOOD COUNT (07/30/2023 6:24 EDT) WBC 8.31 4.00 - 10.40 K/cmm 07/30/2023 6:37 [facility] RBC 2.56(L) 4.36 - 5.78 M/cmm 07/30/2023 6:37 [facility] Hemoglobin 7.8(L) 13.8 - 17.3 g/dL 07/30/2023 6:37 [facility] HCT 24.3(L) 39.5 - 50.2 % 07/30/2023 6:37 [facility] MCV 95 81 - 95 fL 07/30/2023 6:37 [facility] MCH 30.5 27.6 - 33.0 pg 07/30/2023 6:37 [facility] MCHC 32.1(L) 32.8 - 36.4 g/dL 07/30/2023 6:37 [facility] RDW-CV 27.9(H) <14.2 % 07/30/2023 6:37 [facility] RDW-SD 92.2(H) <46.0 fl 07/30/2023 6:37 [facility] PLT 248 141 - 377 K/cmm 07/30/2023 6:37 [facility] MPV 10.2 9.5 - 12.7 fL 07/30/2023 6:37 [facility] Blood VENOUS BLOOD / Unknown Venipuncture / Unknown 07/30/2023 6:24 EDT 07/30/2023 6:31 EDT Shanthi Tom MD PhD HEMATOLOGY & PF4 OR DERABLES Performing Organization Address City/[facility] Co de Phone Number [facility] [address] [place] [address] * (ABNORMAL) MAGNESIUM (07/30/2023 6:24 EDT) Magnesium 1.4(L) 1.7 - 2.8 mg/dL 07/30/2023 7:29 EDT [facility] Blood VENOUS BLOOD / Unknown Venipuncture / Unknown 07/30/2023 6:24 EDT 07/30/2023 6:57 EDT Shanthi Tom MD PhD CHEMISTRY & BLOOD G ORDERABLES Performing Organization Address [facility] Co de Phone Number [facility] [address] [place] [address] * (ABNORMAL) BASIC METABOLIC PANEL (BMP) (07/30/2023 6:24 EDT) Pathologist [facility] Sodium 139 136 - 145 mmol/L 07/30/2023 7:29 [facility] Potassium 4.5 3.5 - 5.0 mmol/L 07/30/2023 7:29 [facility] Chloride 109 96 - 110 mmol/L 07/30/2023 7:29 [facility] CO2 Total 20(L) 22 - 32 mmol/L 07/30/2023 7:29 [facility] Anion Gap 10 5 - 14 mmol/L 07/30/2023 7:29 [facility] Glucose 109(H) 70 - 99 mg/dl 07/30/2023 7:29 [facility] Calcium 9.0 8.5 - 10.5 mg/dL 07/30/2023 7:29 [facility] BUN 22 10 - 26 mg/dL 07/30/2023 7:29 [facility] Creatinine 1.36(H) 0.66 - 1.25 mg/dL 07/30/2023 7:29 [facility] eGFR 57(L) >60 mL/min/1.73 m2 07/30/2023 7:29 [facility] Blood VENOUS BLOOD / Unknown Venipuncture / Unknown 07/30/2023 6:24 EDT 07/30/2023 6:57 EDT Shanthi Tom MD PhD CHEMISTRY & BLOOD G ORDERABLES [facility] [address] [place] [id number] * (ABNORMAL) COMPLETE BLOOD COUNT (07/28/2023 6:00 EDT) WBC 9.37 4.00 - 10.40 K/cmm 07/28/2023 6:33 [facility] RBC 2.72(L) 4.36 - 5.78 M/cmm 07/28/2023 6:33 [facility] Hemoglobin 8.1(L) 13.8 - 17.3 g/dL 07/28/2023 6:33 [facility] HCT 25.1(L) 39.5 - 50.2 % 07/28/2023 6:33 [facility] MCV 92 81 - 95 fL 07/28/2023 6:33 [facility] MCH 29.8 27.6 - 33.0 pg 07/28/2023 6:33 [facility] MCHC 32.3(L) 32.8 - 36.4 g/dL 07/28/2023 6:33 [facility] RDW-CV 07/28/2023 6:33 [facility] Comment:Unreportable due to aberrant RBC size distribution RDW-SD 07/28/2023 6:33 [facility] Comment:Unreportable due to aberrant RBC size distribution PLT 248 141 - 377 K/cmm 07/28/2023 6:33 [facility] MPV 10.2 9.5 - 12.7 fL 07/28/2023 6:33 [facility] Blood VENOUS BLOOD / Unknown Venipuncture / Unknown 07/28/2023 6:00 EDT 07/28/2023 6:06 EDT Leonor Zamudio MD MPH HEMATOLOGY & PF4 ORD ERABLES [facility] [address] [place] [address] * (ABNORMAL) BASIC METABOLIC PANEL (BMP) (07/28/2023 5:59 EDT) Sodium 139 136 - 145 mmol/L 07/28/2023 6:37 EDT [facility] Potassium 4.3 3.5 - 5.0 mmol/L 07/28/2023 6:37 T [facility] Chloride 108 96 - 110 mmol/L 07/28/2023 6:37 [facility] CO2 Total 21(L) 22 - 32 mmol/L 07/28/2023 6:37 [facility] Anion Gap 10 5 - 14 mmol/L 07/28/2023 6:37 [facility] Glucose 95 70 - 99 mg/dl 07/28/2023 6:37 [facility] Calcium 9.0 8.5 - 10.5 mg/dL 07/28/2023 6:37 [facility] BUN 28(H) 10 - 26 mg/dL 07/28/2023 6:37 [facility] Creatinine 1.52(H) 0.66 - 1.25 mg/dL 07/28/2023 6:37 [facility] eGFR 50(L) >60 mL/min/1.73 m2 07/28/2023 6:37 [facility] Blood VENOUS BLOOD / Unknown Venipuncture / Unknown 07/28/2023 5:59 EDT 07/28/2023 6:06 EDT Dalia Lim MD CHEMISTRY & BLOOD G ORDERABLES [facility] [address], [place] [id number] * (ABNORMAL) MAGNESIUM (07/28/2023 5:59 EDT) Magnesium 1.6(L) 1.7 - 2.8 mg/dL 07/28/2023 6:37 EDT [facility] Blood VENOUS BLOOD / Unknown Venipuncture / Unknown 07/28/2023 5:59 EDT 07/28/2023 6:06 EDT Davian Murrell MD CHEMISTRY & BLOOD GA S ORDERABLES Performing Organization Address [facility] Co de Phone Number [facility] [address], [place] [id number] * ECG REPORT - SCANNED (07/27/2023 13:27 EDT) 07/27/2023 13:2 7 EDT Scan 2 Tank Welder PROCEDURE/MINOR MILKA GICAL ORDERABLES * (ABNORMAL) BASIC METABOLIC PANEL (BMP) (07/27/2023 6:35 EDT) Pathologist [facility] Sodium 138 136 - 145 mmol/L 07/27/2023 7:23 [facility] Potassium 4.7 3.5 - 5.0 mmol/L 07/27/2023 7:23 [facility] Chloride 106 96 - 110 mmol/L 07/27/2023 7:23 [facility] CO2 Total 22 22 - 32 mmol/L 07/27/2023 7:23 [facility] Anion Gap 10 5 - 14 mmol/L 07/27/2023 7:23 [facility] Glucose 112(H) 70 - 99 mg/dl 07/27/2023 7:23 [facility] Calcium 8.9 8.5 - 10.5 mg/dL 07/27/2023 7:23 [facility] BUN 26 10 - 26 mg/dL 07/27/2023 7:23 [facility] Creatinine 1.50(H) 0.66 - 1.25 mg/dL 07/27/2023 7:23 [facility] eGFR 50(L) >60 mL/min/1.73 m2 07/27/2023 7:23 [facility] Blood VENOUS BLOOD / Unknown Venipuncture / Unknown 07/27/2023 6:35 EDT 07/27/2023 6:51 EDT Dalia Lim MD CHEMISTRY & BLOOD G ORDERABLES [facility] [address] [place] [address] * (ABNORMAL) COMPLETE BLOOD COUNT (07/27/2023 6:35 EDT) WBC 8.85 4.00 - 10.40 K/cmm 07/27/2023 7:08 [facility] RBC 2.75(L) 4.36 - 5.78 M/cmm 07/27/2023 7:08 [facility] Hemoglobin 8.1(L) 13.8 - 17.3 g/dL 07/27/2023 7:08 [facility] HCT 25.8(L) 39.5 - 50.2 % 07/27/2023 7:08 [facility] MCV 94 81 - 95 fL 07/27/2023 7:08 [facility] MCH 29.5 27.6 - 33.0 pg 07/27/2023 7:08 [facility] MCHC 31.4(L) 32.8 - 36.4 g/dL 07/27/2023 7:08 [facility] RDW-CV 07/27/2023 7:08 [facility] Comment:Unreportable due to aberrant RBC size distribution RDW-SD 07/27/2023 7:08 [facility] Comment:Unreportable due to aberrant RBC size distribution PLT 244 141 - 377 K/cmm 07/27/2023 7:08 EDT [facility] MPV 10.3 9.5 - 12.7 fL 07/27/2023 7:08 EDT [facility] Blood VENOUS BLOOD / Unknown Venipuncture / Unknown 07/27/2023 6:35 EDT 07/27/2023 6:51 EDT Leonor Zamudio MD MPH HEMATOLOGY & PF4 ORD ERABLES Performing Organization Address [facility]/ZIP Co de Phone Number [facility] [address] [place] [address] * MAGNESIUM (07/27/2023 6:35 EDT) Magnesium 1.7 1.7 - 2.8 mg/dL 07/27/2023 7:23 EDT [facility] Blood VENOUS BLOOD / Unknown Venipuncture / Unknown 07/27/2023 6:35 EDT 07/27/2023 6:51 EDT Davian Murrell MD CHEMISTRY & BLOOD GA S ORDERABLES Performing Organization Address [facility] Co de Phone Number [facility] [address] [place] [address] * (ABNORMAL) HEPATIC FUNCTION PANEL (ALB,ALK PHOS,ALT,AST,DBIL,TOT BETO,TOT PROT) (07/26/2023 5:55 EDT) Total Protein 6.5 6.3 - 8.2 g/dL 024 10:50 EDT [facility] Albumin 3.0(L) 3.4 - 4.9 g/dL 07/26/2023 10:50 EDT [facility] Bilirubin, Total 2.1(H) <1.4 mg/dL 07/26/19 10:50 EDT [facility] Conjugated Bilirubin 0.0 <=0.3 mg/dL 07/26/2023 10:50 EDT [facility] Unconjugated Bilirubin 0.5 <=1.1 mg/dL 07/26/2023 10:50 EDT [facility] Delta Bilirubin 1.6 Not Established mg/dL 07/26/2023 10:50 [facility] Comment:Delta Bilirubin occu rs in extended conjugated hyperbilirubinemia. Alkaline Phosphatase 96 38 - 126 U/L 07/26/2023 10:50 T [facility] ALT 33 <50 U/L 07/26/2023 10:50 T [facility] AST 41 15 - 46 U/L 07/26/2023 10:50 [facility] Calculated Total Bilirubin 0.5 <1.4 mg/dL 07/26/2023 10:50 [facility] Blood VENOUS BLOOD / Unknown Venipuncture / Unknown 07/26/2023 5:55 EDT 07/26/2023 6:15 EDT Shanthi Tom MD PhD CHEMISTRY & BLOOD G ORDERABLES [facility] [address] [place] [address] * (ABNORMAL) BASIC METABOLIC PANEL (BMP) (07/26/2023 5:55 EDT) Sodium 139 136 - 145 mmol/L 07/26/2023 6:55 EDT [facility] Potassium 4.7 3.5 - 5.0 mmol/L 07/26/2023 6:55 [facility] Chloride 106 96 - 110 mmol/L 07/26/2023 6:55 [facility] CO2 Total 25 22 - 32 mmol/L 07/26/2023 6:55 [facility] Anion Gap 8 5 - 14 mmol/L 07/26/2023 6:55 [facility] Glucose 97 70 - 99 mg/dl 07/26/2023 6:55 [facility] Calcium 9.1 8.5 - 10.5 mg/dL 07/26/2023 6:55 EDT [facility] BUN 24 10 - 26 mg/dL 07/26/2023 6:55 T [facility] Creatinine 1.61(H) 0.66 - 1.25 mg/dL 07/26/2023 6:55 EDT [facility] eGFR 46(L) >60 mL/min/1.73 m2 07/26/2023 6:55 EDT [facility] Blood VENOUS BLOOD / Unknown Venipuncture / Unknown 07/26/2023 5:55 EDT 07/26/2023 6:15 EDT Dalia Lim MD CHEMISTRY & BLOOD G ORDERABLES [facility] [address] [place] [address] * (ABNORMAL) COMPLETE BLOOD COUNT (07/26/2023 5:55 EDT) WBC 8.38 4.00 - 10.40 K/cmm 07/26/2023 6:34 [facility] RBC 2.72(L) 4.36 - 5.78 M/cmm 07/26/2023 6:34 [facility] Hemoglobin 7.9(L) 13.8 - 17.3 g/dL 07/26/2023 6:34 [facility] HCT 25.2(L) 39.5 - 50.2 % 07/26/2023 6:34 [facility] MCV 93 81 - 95 fL 07/26/2023 6:34 [facility] MCH 29.0 27.6 - 33.0 pg 07/26/2023 6:34 [facility] MCHC 31.3(L) 32.8 - 36.4 g/dL 07/26/2023 6:34 [facility] RDW-CV 07/26/2023 6:34 [facility] Comment:Unreportable due to aberrant RBC size distribution RDW-SD 07/26/2023 6:34 EDT [facility] Comment:Unreportable due to aberrant RBC size distribution PLT 255 141 - 377 K/cmm 07/26/2023 6:34 EDT [facility] MPV 10.6 9.5 - 12.7 fL 07/26/2023 6:34 EDT [facility] Blood VENOUS BLOOD / Unknown Venipuncture / Unknown 07/26/2023 5:55 EDT 07/26/2023 6:15 EDT Leonor Zamudio MD MPH HEMATOLOGY & PF4 ORD ERABLES Performing Organization Address City/[facility]/ZIP Co de Phone Number [facility] [address] [place] [address] * (ABNORMAL) MAGNESIUM (07/26/2023 5:55 EDT) Magnesium 1.5(L) 1.7 - 2.8 mg/dL 07/26/2023 6:55 EDT [facility] Blood VENOUS BLOOD / Unknown Venipuncture / Unknown 07/26/2023 5:55 EDT 07/26/2023 6:15 EDT Davian Murrell MD CHEMISTRY & BLOOD GA S ORDERABLES Performing Organization Address City/[facility]/ZIP Co de Phone Number [facility] [address] [place] [address] * (ABNORMAL) COMPLETE BLOOD COUNT (07/25/2023 18:54 EDT) WBC 9.00 4.00 - 10.40 K/cmm 07/25/2023 19:16 EDT [facility] RBC 2.45(L) 4.36 - 5.78 M/cmm 07/25/2023 19:16 T [facility] Hemoglobin 7.3(L) 13.8 - 17.3 g/dL 07/25/2023 19:16 EDT [facility] HCT 23.1(L) 39.5 - 50.2 % 07/25/2023 19:16 EDT [facility] MCV 94 81 - 95 fL 07/25/2023 19:16 EDT [facility] MCH 29.8 27.6 - 33.0 pg 07/25/2023 19:16 EDT [facility] MCHC 31.6(L) 32.8 - 36.4 g/dL 07/25/2023 19:16 EDT [facility] RDW-CV 07/25/2023 19:16 EDT [facility] Comment:Unreportable due to aberrant RBC size distribution RDW-SD 07/25/2023 19:16 EDT [facility] Comment:Unreportable due to aberrant RBC size distribution PLT 256 141 - 377 K/cmm 07/25/2023 19:16 T [facility] MPV 11.2 9.5 - 12.7 fL 07/25/2023 19:16 EDT [facility] Blood BLOOD SAMPLE TAKEN FROM CENTRAL LINE / Unknown PICC Line Draw / Unknown 07/25/2023 18:54 EDT 07/25/2023 19:00 EDT Dilcia Cortes MD HEMATOLOGY & PF4 ORD ERABLES [facility] [address] [place] [address] * PTT (07/25/2023 8:55 EDT) PTT 31 26 - 37 secs 07/25/2023 9:34 EDT [facility] Blood BLOOD SAMPLE TAKEN FROM CENTRAL LINE / Unknown PICC Line Draw / Unknown 07/25/2023 8:55 EDT 07/25/2023 9:11 EDT Shanthi Tom MD PhD HEMATOLOGY & PF4 OR DERABLES Performing Organization Address City/[facility]/ZIP Co de Phone Number [facility] [address] [place] [address] * PROTIME (07/25/2023 8:55 EDT) I.N.R. 1.1 0.9 - 1.1 Ratio 07/25/2023 9:34 EDT [facility] Pro Time 12.4 9.7 - 12.8 secs 07/25/2023 9:34 EDT [facility] Blood BLOOD SAMPLE TAKEN FROM CENTRAL LINE / Unknown PICC Line Draw / Unknown 07/25/2023 8:55 EDT 07/25/2023 9:11 EDT Narrative [facility] - 07/25/2023 9:34 EDT Moderate Intensity Coumadin INR = 2.0-3.0 Adjustments in anticoagulant therapy dose should be based on the INR and NOT on the Protime. Shanthi Tom MD PhD HEMATOLOGY & PF4 OR DERABLES [facility] [address] [place] [id number] * US LOWER EXTREMITY LIMITED LEFT (07/25/2023 8:14 EDT) Anatomical Region Laterality Modality Extremity Ultrasound 07/25/2023 8:49 EDT Impressions 07/25/2023 8:49 EDT FINDINGS / IMPRESSION: * ??Hematoma in the left groin region measuring about 9.5 x 2.9 x 4.4 cm on the current exam compared to 7.6 x 3.3 x 4.6 cm on the previous exam, representing a modest overall increase in size. * ??Smaller adjacent hematoma also noted, deep to the aforementioned hematoma in the left groin, measuring 2.6 x 2.4 x 1.4 cm. * ??No flow demonstrated within the collections on Doppler interrogation, though CT angiography would be necessary to definitively exclude any residual or recurrent active extravasation. [id number] Narrative 07/25/2023 8:49 EDT EXAM/TECHNIQUE: US LOWER EXTREMITY LIMITED LEFT ??07/25/2023 7:54 AM HISTORY: ?? Left inguinal/groin mass/fluid collection; increased in size overnight per clinical note COMPARISON: Ultrasound 07/07/23, CT 07/01/2023 TECHNIQUE: Targeted static and cinematic grayscale and color Doppler ultrasound images of the left lower extremity were obtained. Resulting Agency Comment [id number] Procedure Note Lowell Morris, DO - 07/25/2023 EXAM/TECHNIQUE: US LOWER EXTREMITY LIMITED LEFT 07/25/2023 7:54 AM HISTORY: Left inguinal/groin mass/fluid collection; increased in size overnight perclinical note COMPARISON: Ultrasound 07/07/23, CT 07/01/2023 TECHNIQUE: Targeted static and cinematic grayscale and color Doppler ultrasoundimages of the left lower extremity were obtained. IMPRESSION FINDINGS / IMPRESSION: * Hematoma in the left groin region measuring about 9.5 x 2.9 x 4.4 cm onthe current exam compared to 7.6 x 3.3 x 4.6 cm on the previous exam,representing a modest overall increase in size. * Smaller adjacent hematoma also noted, deep to the aforementionedhematoma in the left groin, measuring 2.6 x 2.4 x 1.4 cm. * No flow demonstrated within the collections on Doppler interrogation,though CT angiography would be necessary to definitively exclude anyresidual or recurrent active extravasation. [id number] Shanthi Tom MD PhD IMG US OB ORDERABLE S * (ABNORMAL) BASIC METABOLIC PANEL (BMP) (07/25/2023 6:55 EDT) Sodium 138 136 - 145 mmol/L 07/25/2023 7:41 [facility] Potassium 4.5 3.5 - 5.0 mmol/L 07/25/2023 7:41 [facility] Chloride 106 96 - 110 mmol/L 07/25/2023 7:41 [facility] CO2 Total 24 22 - 32 mmol/L 07/25/2023 7:41 [facility] Anion Gap 8 5 - 14 mmol/L 07/25/2023 7:41 [facility] Glucose 90 70 - 99 mg/dl 07/25/2023 7:41 [facility] Calcium 9.0 8.5 - 10.5 mg/dL 07/25/2023 7:41 T [facility] BUN 25 10 - 26 mg/dL 07/25/2023 7:41 [facility] Creatinine 1.50(H) 0.66 - 1.25 mg/dL 07/25/2023 7:41 [facility] eGFR 50(L) >60 mL/min/1.73 m2 07/25/2023 7:41 T [facility] Blood VENOUS BLOOD / Unknown Venipuncture / Unknown 07/25/2023 6:55 EDT 07/25/2023 7:01 EDT Dalia Lim MD CHEMISTRY & BLOOD G ORDERABLES [facility] [address] [place] [phone] * (ABNORMAL) COMPLETE BLOOD COUNT (07/25/2023 6:55 EDT) WBC 7.63 4.00 - 10.40 K/cmm 07/25/2023 7:13 [facility] RBC 2.67(L) 4.36 - 5.78 M/cmm 07/25/2023 7:13 [facility] Hemoglobin 7.9(L) 13.8 - 17.3 g/dL 07/25/2023 7:13 [facility] HCT 25.2(L) 39.5 - 50.2 % 07/25/2023 7:13 [facility] MCV 94 81 - 95 fL 07/25/2023 7:13 [facility] MCH 29.6 27.6 - 33.0 pg 07/25/2023 7:13 [facility] MCHC 31.3(L) 32.8 - 36.4 g/dL 07/25/2023 7:13 [facility] RDW-CV 07/25/2023 7:13 [facility] Comment:Unreportable due to aberrant RBC size distribution RDW-SD 07/25/2023 7:13 EDT [facility] Comment:Unreportable due to aberrant RBC size distribution PLT 264 141 - 377 K/cmm 07/25/2023 7:13 EDT [facility] MPV 10.7 9.5 - 12.7 fL 07/25/2023 7:13 EDT [facility] Blood BLOOD SAMPLE TAKEN FROM CENTRAL LINE / Unknown Venipuncture / Unknown 07/25/2023 6:55 EDT 07/25/2023 7:01 EDT Leonor Zamudio MD MPH HEMATOLOGY & PF4 ORD ERABLES [facility] [address], [place] [id number] * MAGNESIUM (07/25/2023 6:55 EDT) Magnesium 1.8 1.7 - 2.8 mg/dL 07/25/2023 7:41 EDT [facility] Blood VENOUS BLOOD / Unknown Venipuncture / Unknown 07/25/2023 6:55 EDT 07/25/2023 7:01 EDT Davian Murrell MD CHEMISTRY & BLOOD GA S ORDERABLES Performing Organization Address City/[facility]/ZIP Co de Phone Number [facility] [address], [place] [id number] * ECG REPORT - SCANNED (07/24/2023 12:58 EDT) 07/24/2023 12:5 8 EDT Scan 2 Tank Welder PROCEDURE/MINOR MILKA GICAL ORDERABLES * (ABNORMAL) BASIC METABOLIC PANEL (BMP) (07/24/2023 5:40 EDT) Sodium 137 136 - 145 mmol/L 07/24/2023 6:47 EDT [facility] Potassium 4.9 3.5 - 5.0 mmol/L 07/24/2023 6:47 EDT [facility] Chloride 103 96 - 110 mmol/L 07/24/2023 6:47 EDT [facility] CO2 Total 23 22 - 32 mmol/L 07/24/2023 6:47 EDT [facility] Anion Gap 11 5 - 14 mmol/L 07/24/2023 6:47 EDT [facility] Glucose 90 70 - 99 mg/dl 07/24/2023 6:47 [facility] Calcium 9.0 8.5 - 10.5 mg/dL 07/24/2023 6:47 [facility] BUN 21 10 - 26 mg/dL 07/24/2023 6:47 [facility] Creatinine 1.60(H) 0.66 - 1.25 mg/dL 07/24/2023 6:47 [facility] eGFR 47(L) >60 mL/min/1.73 m2 07/24/2023 6:47 EDT [facility] Blood BLOOD SAMPLE TAKEN FROM CENTRAL LINE / Unknown Venipuncture / Unknown 07/24/2023 5:40 EDT 07/24/2023 6:17 EDT Dalia Lim MD CHEMISTRY & BLOOD G ORDERABLES [facility] [address] [place] [id number] * MAGNESIUM (07/24/2023 5:40 EDT) Magnesium 1.7 1.7 - 2.8 mg/dL 07/24/2023 6:47 EDT [facility] Blood BLOOD SAMPLE TAKEN FROM CENTRAL LINE / Unknown Venipuncture / Unknown 07/24/2023 5:40 EDT 07/24/2023 6:17 EDT Davian Murrell MD CHEMISTRY & BLOOD GA S ORDERABLES [facility] [address] [place] [address] * TYPE AND SCREEN (07/24/2023 5:40 EDT) Pathologist [facility] ABO A 07/24/2023 7:01 EDT [facility] Rh Factor Positive 07/24/2023 7:01 EDT [facility] Antibody Screen Negative 07/24/2023 7:01 EDT [facility] Specimen Expires: 07/27/2023 @ 23:59 07/24/2023 7:01 EDT [facility] Blood BLOOD SAMPLE TAKEN FROM CENTRAL LINE / Unknown Venipuncture / Unknown 07/24/2023 5:40 EDT 07/24/2023 6:19 EDT Shanthi Tom MD PhD BLOOD BANK TESTS Performing Organization Address City/[facility] Co de Phone Number [facility] [address] [place] [address] * (ABNORMAL) COMPLETE BLOOD COUNT (07/24/2023 5:39 EDT) [facility] WBC 7.48 4.00 - 10.40 K/cmm 07/24/2023 6:39 T [facility] RBC 2.64(L) 4.36 - 5.78 M/cmm 07/24/2023 6:39 [facility] Hemoglobin 7.8(L) 13.8 - 17.3 g/dL 07/24/2023 6:39 T [facility] HCT 24.6(L) 39.5 - 50.2 % 07/24/2023 6:39 [facility] MCV 93 81 - 95 fL 07/24/2023 6:39 [facility] MCH 29.5 27.6 - 33.0 pg 07/24/2023 6:39 [facility] MCHC 31.7(L) 32.8 - 36.4 g/dL 07/24/2023 6:39 [facility] RDW-CV 07/24/2023 6:39 EDT [facility] Comment:Unreportable due to aberrant RBC size distribution RDW-SD 07/24/2023 6:39 EDT [facility] Comment:Unreportable due to aberrant RBC size distribution PLT 296 141 - 377 K/cmm 07/24/2023 6:39 EDT [facility] MPV 11.7 9.5 - 12.7 fL 07/24/2023 6:39 EDT [facility] Blood BLOOD SAMPLE TAKEN FROM CENTRAL LINE / Unknown Venipuncture / Unknown 07/24/2023 5:39 EDT 07/24/2023 6:17 EDT Leonor Zamudio MD MPH HEMATOLOGY & PF4 ORD ERABLES Performing Organization Address City/[facility]/ZIP Co de Phone Number [facility] [address] [place] [address] * FERRITIN (07/23/2023 5:15 EDT) Ferritin 42 22 - 322 ng/mL 07/23/2023 12:27 EDT [facility] Blood BLOOD SAMPLE TAKEN FROM CENTRAL LINE / Unknown Venipuncture / Unknown 07/23/2023 5:15 EDT 07/23/2023 5:27 EDT Shanthi Tom MD PhD CHEMISTRY & BLOOD G ORDERABLES Performing Organization Address City/[facility]/ZIP Co de Phone Number [facility] [address] [place] [address] * (ABNORMAL) TRANSFERRIN SATURATION (07/23/2023 5:15 EDT) Iron 32(L) 49 - 181 ??g/dL 07/23/2023 11:31 EDT [facility] Iron Binding Capacity 341 240 - 450 ??g/dL 07/23/2023 11:31 EDT [facility] Transferrin Saturation 9(L) 15 - 45 % 07/23/2023 11:31 EDT [facility] Blood BLOOD SAMPLE TAKEN FROM CENTRAL LINE / Unknown Venipuncture / Unknown 07/23/2023 5:15 EDT 07/23/2023 5:27 EDT Shanthi Tom MD PhD CHEMISTRY & BLOOD G ORDERABLES Performing Organization Address [facility] Co de Phone Number [facility] [address] [place] [address] * FOLATE (07/23/2023 5:15 EDT) Pathologist [facility] Folate >24.0 See Note ng/mL 07/23/2023 12:31 EDT [facility] Comment: Reference Ranges for Folate: Deficient: ?< 3.4 ng/mL Indeterminate: ??3.4 - 5.4 ng/mL Normal: ? > 5.4 ng/mL The results of this assay can be falsely elevated due to the consumption of Biotin. Blood BLOOD SAMPLE TAKEN FROM CENTRAL LINE / Unknown Venipuncture / Unknown 07/23/2023 5:15 EDT 07/23/2023 5:27 EDT Shanthi Tom MD PhD CHEMISTRY & BLOOD G ORDERABLES Performing Organization Address [facility] [place] de Phone Number [facility] [address] [place] [address] * (ABNORMAL) VITAMIN B12 (07/23/2023 5:15 EDT) Vitamin B12 1,208(H) 211 - 911 pg/mL 07/23/2023 12:26 EDT [facility] Blood BLOOD SAMPLE TAKEN FROM CENTRAL LINE / Unknown Venipuncture / Unknown 07/23/2023 5:15 EDT 07/23/2023 5:27 EDT Shanthi Tom MD PhD CHEMISTRY & BLOOD G ORDERABLES Performing Organization Address City/[facility] Co de Phone Number [facility] [address] [place] [address] * RETICULOCYTE COUNT (07/23/2023 5:15 EDT) Pathologist [facility] [address] (Uncorrected) 2.3 0.5 - 2.5 % 07/23/2023 11:22 EDT [facility] Blood BLOOD SAMPLE TAKEN FROM CENTRAL LINE / Unknown Venipuncture / Unknown 07/23/2023 5:15 EDT 07/23/2023 5:27 EDT Shanthi Tom MD PhD HEMATOLOGY & PF4 OR DERABLES Performing Organization Address [facility] Co de Phone Number [facility] [address] [place] [address] * CBC HEMOLYSIS REVIEW (07/23/2023 5:15 EDT) [facility] Schistocytes 1+ 07/23/2023 13:42 EDT [facility] Spherocytes No increase in spherocytes seen. 07/23/2023 13:42 EDT [facility] Differential Comment Increased schistocytes seen. The findings suggest red blood cell hemolysis. 07/23/2023 13:42 EDT [facility] Blood BLOOD SAMPLE TAKEN FROM CENTRAL LINE / Unknown Venipuncture / Unknown 07/23/2023 5:15 EDT 07/23/2023 5:27 EDT Leonor Zamudio MD MPH HEMATOLOGY & PF4 ORD ERABLES Performing Organization Address [facility]/ZIP Co de Phone Number [facility] [address] [place] [address] * (ABNORMAL) BASIC METABOLIC PANEL (BMP) (07/23/2023 5:15 EDT) Pathologist [facility] Sodium 135(L) 136 - 145 mmol/L 07/23/2023 6:06 EDT [facility] Potassium 4.9 3.5 - 5.0 mmol/L 07/23/2023 6:06 EDT [facility] Chloride 103 96 - 110 mmol/L 07/23/2023 6:06 [facility] CO2 Total 25 22 - 32 mmol/L 07/23/2023 6:06 [facility] Anion Gap 7 5 - 14 mmol/L 07/23/2023 6:06 [facility] Glucose 102(H) 70 - 99 mg/dl 07/23/2023 6:06 [facility] Calcium 8.7 8.5 - 10.5 mg/dL 07/23/2023 6:06 [facility] BUN 25 10 - 26 mg/dL 07/23/2023 6:06 [facility] Creatinine 1.60(H) 0.66 - 1.25 mg/dL 07/23/2023 6:06 [facility] eGFR 47(L) >60 mL/min/1.73 m2 07/23/2023 6:06 [facility] Blood BLOOD SAMPLE TAKEN FROM CENTRAL LINE / Unknown Venipuncture / Unknown 07/23/2023 5:15 EDT 07/23/2023 5:27 EDT Dalia Lim MD CHEMISTRY & BLOOD G ORDERABLES [facility] [address] [place] [address] * (ABNORMAL) COMPLETE BLOOD COUNT (07/23/2023 5:15 EDT) WBC 8.50 4.00 - 10.40 K/cmm 07/23/2023 5:38 [facility] RBC 2.55(L) 4.36 - 5.78 M/cmm 07/23/2023 5:38 [facility] Hemoglobin 7.4(L) 13.8 - 17.3 g/dL 07/23/2023 5:38 [facility] HCT 23.8(L) 39.5 - 50.2 % 07/23/2023 5:38 [facility] MCV 93 81 - 95 fL 07/23/2023 5:38 EDT [facility] MCH 29.0 27.6 - 33.0 pg 07/23/2023 5:38 EDT [facility] MCHC 31.1(L) 32.8 - 36.4 g/dL 07/23/2023 5:38 EDT [facility] RDW-CV 07/23/2023 5:38 EDT [facility] Comment:Unreportable due to aberrant RBC size distribution RDW-SD 07/23/2023 5:38 EDT [facility] Comment:Unreportable due to aberrant RBC size distribution PLT 301 141 - 377 K/cmm 07/23/2023 5:38 EDT [facility] MPV 10.9 9.5 - 12.7 fL 07/23/2023 5:38 EDT [facility] Blood BLOOD SAMPLE TAKEN FROM CENTRAL LINE / Unknown Venipuncture / Unknown 07/23/2023 5:15 EDT 07/23/2023 5:27 EDT Leonor Zamudio MD MPH HEMATOLOGY & PF4 ORD ERABLES [facility] [address] [place] [address] * MAGNESIUM (07/23/2023 5:15 EDT) Magnesium 1.9 1.7 - 2.8 mg/dL 07/23/2023 6:06 EDT [facility] Blood BLOOD SAMPLE TAKEN FROM CENTRAL LINE / Unknown Venipuncture / Unknown 07/23/2023 5:15 EDT 07/23/2023 5:27 EDT Davian Murrell MD CHEMISTRY & BLOOD GA S ORDERABLES [facility] [address] [place] [address] * (ABNORMAL) BASIC METABOLIC PANEL (BMP) (07/22/2023 4:26 EDT) Sodium 135(L) 136 - 145 mmol/L 07/22/2023 5:06 EDT [facility] Potassium 5.3(H) 3.5 - 5.0 mmol/L 07/22/2023 5:06 [facility] Chloride 103 96 - 110 mmol/L 07/22/2023 5:06 [facility] CO2 Total 23 22 - 32 mmol/L 07/22/2023 5:06 [facility] Anion Gap 9 5 - 14 mmol/L 07/22/2023 5:06 [facility] Glucose 101(H) 70 - 99 mg/dl 07/22/2023 5:06 [facility] Calcium 8.9 8.5 - 10.5 mg/dL 07/22/2023 5:06 [facility] BUN 28(H) 10 - 26 mg/dL 07/22/2023 5:06 [facility] Creatinine 1.66(H) 0.66 - 1.25 mg/dL 07/22/2023 5:06 [facility] eGFR 45(L) >60 mL/min/1.73 m2 07/22/2023 5:06 [facility] Blood BLOOD SAMPLE TAKEN FROM CENTRAL LINE / Unknown Venipuncture / Unknown 07/22/2023 4:26 EDT 07/22/2023 4:34 EDT Dalia Lim MD CHEMISTRY & BLOOD G ORDERABLES [facility] [address] [place] [address] * (ABNORMAL) COMPLETE BLOOD COUNT (07/22/2023 4:26 EDT) Pathologist [facility] WBC 9.12 4.00 - 10.40 K/cmm 07/22/2023 4:44 EDT [facility] RBC 2.66(L) 4.36 - 5.78 M/cmm 07/22/2023 4:44 EDT [facility] Hemoglobin 7.9(L) 13.8 - 17.3 g/dL 07/22/2023 4:44 EDT [facility] HCT 24.4(L) 39.5 - 50.2 % 07/22/2023 4:44 EDT [facility] MCV 92 81 - 95 fL 07/22/2023 4:44 EDT [facility] MCH 29.7 27.6 - 33.0 pg 07/22/2023 4:44 EDT [facility] MCHC 32.4(L) 32.8 - 36.4 g/dL 07/22/2023 4:44 T [facility] RDW-CV 07/22/2023 4:44 EDT [facility] Comment:Unreportable due to aberrant RBC size distribution RDW-SD 07/22/2023 4:44 EDT [facility] Comment:Unreportable due to aberrant RBC size distribution PLT 307 141 - 377 K/cmm 07/22/2023 4:44 T [facility] MPV 11.4 9.5 - 12.7 fL 07/22/2023 4:44 T [facility] Blood BLOOD SAMPLE TAKEN FROM CENTRAL LINE / Unknown Venipuncture / Unknown 07/22/2023 4:26 EDT 07/22/2023 4:34 EDT Leonor Zamudio MD MPH HEMATOLOGY & PF4 ORD ERABLES [facility] [address] [place] [address] * MAGNESIUM (07/22/2023 4:26 EDT) Magnesium 1.9 1.7 - 2.8 mg/dL 07/22/2023 5:06 EDT [facility] Blood BLOOD SAMPLE TAKEN FROM CENTRAL LINE / Unknown Venipuncture / Unknown 07/22/2023 4:26 EDT 07/22/2023 4:34 EDT Davian Murrell MD CHEMISTRY & BLOOD GA S ORDERABLES [facility] [address] [place] [address] * EKG 12-LEAD (07/21/2023 21:48 EDT) 07/21/2023 21:4 8 EDT Narrative [facility] EKG - 07/27/2023 13:18 EDT ? [facility] ? Test Date: ?2023-07-21 Pat Name: ? DERRICK PILOTTE ? Department: ?? [address] ? Room: ? M623 Gender: ? Male ? 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 [id number] : ?1955 ? Requested By: LEODAN JACKSON Order Number: [id number] ? Mike STEVENS: ?? SHANTHI CALDERA MD ? Measurements Intervals ?[place] ? Rate: ? 95 ? P: ?0 AR: ? 0 ?QRS: ?40 QRSD: ? 109 ?T: ?91 QT: ? 345 ? QTc: ?435 ? Interpretive Statements ATRIAL FIBRILLATION NONSPECIFIC ST & T-WAVE ABNORMALITY ABNORMAL RHYTHM ECG Automated Interpretation. ??Provider Interpretation to follow. Compared to ECG 07/20/2023 11:07:57 Possible ischemia no longer present T-wave abnormality still present I reviewed the tracing and have either agreed or edited the findings in this report. Electronically Signed On 07-27-2023 13:18:12 EDT by SHANTHI CALDERA MD. Procedure Note Shanthi Caldera MD PhD - 07/27/2023 [facility] Test Date: 2023-07-21 Pat Name: DERRICK HOBSON Department: [place] [address] Room: 23 Gender: Male Spinner Hydraulic: [id number] : 1955 Requested By: ISIDORO Order Number: [id number] Mike MD: SHANTHI LOCKWOOD Measurements Intervals [place] Rate: 95 P: 0 AR: 0 QRS: 40 QRSD: 109 T: 91 QT: 345 QTc: 435 Interpretive Statements ATRIAL FIBRILLATION NONSPECIFIC ST & T-WAVE ABNORMALITY ABNORMAL RHYTHM ECG Automated Interpretation. Provider Interpretation to follow. Compared to ECG 07/20/2023 11:07:57 Possible ischemia no longer present T-wave abnormality still present I reviewed the tracing and have either agreed or edited the findings inthis report. Electronically Signed On 07-27-2023 13:18:12 EDT by PRADIP STEVENS. Esvin Rebollar MD CARDIAC ECG ORDERABLES [facility] EKG * (ABNORMAL) BASIC METABOLIC PANEL (BMP) (07/21/2023 6:16 EDT) Sodium 136 136 - 145 mmol/L 07/21/2023 7:03 [facility] Potassium 5.2(H) 3.5 - 5.0 mmol/L 07/21/2023 7:03 [facility] Chloride 105 96 - 110 mmol/L 07/21/2023 7:03 [facility] CO2 Total 23 22 - 32 mmol/L 07/21/2023 7:03 [facility] Anion Gap 8 5 - 14 mmol/L 07/21/2023 7:03 [facility] Glucose 100(H) 70 - 99 mg/dl 07/21/2023 7:03 [facility] Calcium 8.8 8.5 - 10.5 mg/dL 07/21/2023 7:03 [facility] BUN 28(H) 10 - 26 mg/dL 07/21/2023 7:03 [facility] Creatinine 1.68(H) 0.66 - 1.25 mg/dL 07/21/2023 7:03 [facility] eGFR 44(L) >60 mL/min/1.73 m2 07/21/2023 7:03 [facility] Blood BLOOD SAMPLE TAKEN FROM CENTRAL LINE / Unknown Venipuncture / Unknown 07/21/2023 6:16 EDT 07/21/2023 6:29 EDT Dalia Lim MD CHEMISTRY & BLOOD G ORDERABLES [facility] [address] [place] [address] * (ABNORMAL) COMPLETE BLOOD COUNT (07/21/2023 6:16 EDT) WBC 9.10 4.00 - 10.40 K/cmm 07/21/2023 6:50 T [facility] RBC 2.80(L) 4.36 - 5.78 M/cmm 07/21/2023 6:50 [facility] Hemoglobin 8.0(L) 13.8 - 17.3 g/dL 07/21/2023 6:50 [facility] HCT 25.8(L) 39.5 - 50.2 % 07/21/2023 6:50 [facility] MCV 92 81 - 95 fL 07/21/2023 6:50 [facility] MCH 28.6 27.6 - 33.0 pg 07/21/2023 6:50 [facility] MCHC 31.0(L) 32.8 - 36.4 g/dL 07/21/2023 6:50 [facility] RDW-CV 07/21/2023 6:50 [facility] Comment:Unreportable due to aberrant RBC size distribution RDW-SD 07/21/2023 6:50 [facility] Comment:Unreportable due to aberrant RBC size distribution PLT 375 141 - 377 K/cmm 07/21/2023 6:50 [facility] MPV 12.1 9.5 - 12.7 fL 07/21/2023 6:50 [facility] Blood BLOOD SAMPLE TAKEN FROM CENTRAL LINE / Unknown Venipuncture / Unknown 07/21/2023 6:16 EDT 07/21/2023 6:29 EDT Leonor Zamudio MD MPH HEMATOLOGY & PF4 ORD ERABLES Performing Organization Address [facility] Co de Phone Number [facility] [address] [place] [address] * MAGNESIUM (07/21/2023 6:16 EDT) Pathologist [facility] Magnesium 1.8 1.7 - 2.8 mg/dL 07/21/2023 7:03 EDT [facility] Blood BLOOD SAMPLE TAKEN FROM CENTRAL LINE / Unknown Venipuncture / Unknown 07/21/2023 6:16 EDT 07/21/2023 6:29 EDT Davian Murrell MD CHEMISTRY & BLOOD GA S ORDERABLES Performing Organization Address [facility] Co de Phone Number [facility] [address] [place] [address] * LACTIC ACID (07/20/2023 15:01 EDT) [facility] Lactic Acid 1.5 <=2.0 mmol/L 07/20/2023 15:20 EDT [facility] Blood VENOUS BLOOD / Unknown Venipuncture / Unknown 07/20/2023 15:01 EDT 07/20/2023 15:07 EDT Leonor Zamudio MD MPH CHEMISTRY & BLOOD GA S ORDERABLES Performing Organization Address [facility] Co de Phone Number [facility] [address] [place] [address] * EKG 12-LEAD (07/20/2023 11:07 EDT) 07/20/2023 11:0 7 EDT Narrative [facility] EKG - 07/24/2023 12:44 EDT ? [facility] ? Test Date: ?2023-07-20 Pat Name: ? DERRICK PILOTTE ? Department: ?? [address] ? Room: ? M623 Gender: ? Male ? 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 [id number] : ?1955 ? Requested By: LIZZ ALBRECHTIKA Order Number: [id number] ? Reading MD: ?? MAYUR OLIVER ? Measurements Intervals ?[place] ? Rate: ? 81 ? P: ?0 AR: ? 0 ?QRS: ?20 QRSD: ? 110 ?T: ?99 QT: ? 378 ? QTc: ?440 ? Interpretive Statements ATRIAL FIBRILLATION ST DEVIATION AND MODERATE T-WAVE ABNORMALITY, CONSIDER ANTERIOR ISCHEMIA Automated Interpretation. ??Provider Interpretation to follow. Compared to ECG 07/18/2023 23:45:45 No significant changes I reviewed the tracing and have either agreed or edited the findings in this report. Electronically Signed On 07-24-2023 12:44:35 EDT by MAYUR OLIVER. 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 Provider Interpretation to follow. Compared to ECG 07/18/2023 23:45:45 No significant changes I reviewed the tracing and have either agreed or edited the findings inthis report. Electronically Signed On 07-24-2023 12:44:35 EDT by MAYUR OLIVER. Leonor Zamudio MD MPH CARDIAC ECG ORDERABL ES [facility] EKG * TROPONIN I (07/20/2023 11:05 EDT) Troponin I (ng/mL) <0.034 <0.034 ng/mL 07/20/2023 11:38 EDT [facility] Blood VENOUS BLOOD / Unknown Venipuncture / Unknown 07/20/2023 11:05 EDT 07/20/2023 11:09 EDT Narrative [facility] - 07/20/2023 11:38 EDT The results of this assay can be falsely lowered due to the consumption of Biotin. Leonor Zamudio MD MPH CHEMISTRY & BLOOD GA S ORDERABLES Performing Organization Address [facility]/ZIP Co de Phone Number [facility] [address] [place] [address] * (ABNORMAL) LACTIC ACID (07/20/2023 11:05 EDT) Lactic Acid 2.1(HH) <=2.0 mmol/L 07/20/2023 11:25 EDT [facility] Blood VENOUS BLOOD / Unknown Venipuncture / Unknown 07/20/2023 11:05 EDT 07/20/2023 11:09 EDT Leonor Zamudio MD MPH CHEMISTRY & BLOOD GA S ORDERABLES Performing Organization Address [facility] Co de Phone Number [facility] [address] [place] [address] * (ABNORMAL) POCT GLUCOSE, INTERFACED (07/20/2023 10:53 EDT) Pathologist [facility] Glucose, POC 119(H) 70 - 100 mg/dL 07/20/2023 10:55 EDT [facility] HN LAB POC COMMENT (GLUCOSE) Test Performed by Nursing Services 07/20/2023 10:55 EDT [facility] Blood CAPILLARY BLOOD / Unknown 07/20/2023 10:53 EDT 07/20/2023 10:55 EDT Sunny Georges MD POINT OF CA RE TEST ORDERABLES Performing Organization Address [facility]/ZIP Co de Phone Number [facility] [address] [place] [address] * (ABNORMAL) COMPLETE BLOOD COUNT (07/20/2023 6:33 EDT) Pathologist [facility] WBC 10.59(H) 4.00 - 10.40 K/cmm 07/20/2023 6:59 [facility] RBC 2.84(L) 4.36 - 5.78 M/cmm 07/20/2023 6:59 [facility] Hemoglobin 8.2(L) 13.8 - 17.3 g/dL 07/20/2023 6:59 [facility] HCT 26.1(L) 39.5 - 50.2 % 07/20/2023 6:59 [facility] MCV 92 81 - 95 fL 07/20/2023 6:59 [facility] MCH 28.9 27.6 - 33.0 pg 07/20/2023 6:59 [facility] MCHC 31.4(L) 32.8 - 36.4 g/dL 07/20/2023 6:59 [facility] RDW-CV 07/20/2023 6:59 [facility] Comment:Unreportable due to aberrant RBC size distribution RDW-SD 07/20/2023 6:59 [facility] Comment:Unreportable due to aberrant RBC size distribution PLT 372 141 - 377 K/cmm 07/20/2023 6:59 [facility] MPV 11.4 9.5 - 12.7 fL 07/20/2023 6:59 [facility] Blood BLOOD SAMPLE TAKEN FROM CENTRAL LINE / Unknown Venipuncture / Unknown 07/20/2023 6:33 EDT 07/20/2023 6:38 EDT Leonor Zamudio MD MPH HEMATOLOGY & PF4 ORD ERABLES [facility] [address] [place] [address] * (ABNORMAL) BASIC METABOLIC PANEL (BMP) (07/20/2023 6:32 EDT) Sodium 137 136 - 145 mmol/L 07/20/2023 7:09 [facility] Potassium 5.0 3.5 - 5.0 mmol/L 07/20/2023 7:09 [facility] Chloride 106 96 - 110 mmol/L 07/20/2023 7:09 [facility] CO2 Total 20(L) 22 - 32 mmol/L 07/20/2023 7:09 [facility] Anion Gap 11 5 - 14 mmol/L 07/20/2023 7:09 [facility] Glucose 108(H) 70 - 99 mg/dl 07/20/2023 7:09 [facility] Calcium 9.0 8.5 - 10.5 mg/dL 07/20/2023 7:09 [facility] BUN 26 10 - 26 mg/dL 07/20/2023 7:09 [facility] Creatinine 1.86(H) 0.66 - 1.25 mg/dL 07/20/2023 7:09 [facility] eGFR 39(L) >60 mL/min/1.73 m2 07/20/2023 7:09 [facility] Blood BLOOD SAMPLE TAKEN FROM CENTRAL LINE / Unknown Venipuncture / Unknown 07/20/2023 6:32 EDT 07/20/2023 6:38 EDT Dalia Lim MD CHEMISTRY & BLOOD G ORDERABLES [facility] [address], [place] [id number] * MAGNESIUM (07/20/2023 6:32 EDT) Magnesium 1.7 1.7 - 2.8 mg/dL 07/20/2023 7:09 [facility] Blood BLOOD SAMPLE TAKEN FROM CENTRAL LINE / Unknown Venipuncture / Unknown 07/20/2023 6:32 EDT 07/20/2023 6:38 EDT Davian Murrell MD CHEMISTRY & BLOOD GA S ORDERABLES [facility] [address] [place] [address] * NM CARD SPECT PHARM MULT STUDIES COMPLETE (07/19/2023 11:08 EDT) Baseline HR 90 bpm [facility] PO INT OF CARE Baseline Systolic BP 126 mmHg [facility] POINT OF CARE Baseline Diastolic BP 70 mmHg [facility] POINT OF CARE Target HR 152 bpm [facility] POIN T OF CARE Pre test likelihood of obstructive CAD 22 [facility] POINT OF CARE Nuc Stress EF 42 % [facility] POINT OF CARE Anatomical Region Laterality Modality Chest Nuclear Medicine Narrative 07/19/2023 15:48 EDT ?Perfusion: There was a ??mild intensity, small sized fixed perfusion defect in the apical inferior wall(s) and apex. This indicates small infarction in the RCA coronary territory. ?Function: Global LV function is mildly to moderately reduced. Post-stress ejection fraction is 42%. There is was hypokinesis of the apical inferior and apical wall . ?Stress ECG: Stress ECG was negative. ?Stress data: Patient experienced no chest pain. Stress Function Comments Global LV function was mildly to moderately reduced. Global RV function was mildly to moderately reduced. Post-stress ejection fraction was 42%. There was diffuse hypokinesis. The left ventricle size was moderately enlarged at stress. The right ventricle size was mildly enlarged at stress. There was hypokinesis of the apical inferior and apical wall . Baseline ECG There was atrial fibrillation. There was no ectopy noted on the baseline ECG. Stress ECG There were no significant arrhythmias noted during stress. Recovery ECG There were no significant arrhythmias noted during recovery. Result ECG Stress ECG was negative. HPI and Indications Indications: asymptomatic. History: 68 y.o. patient, no known CAD, presents for cardiac evaluation due to 07/16 Limited Echo w/ wall motion abnormalities and reduced EF of 35-40% (improved from 20%). HX AFIB. Initially presented at OSH for epistaxis, transferred to [facility], has had prolonged hospital course complicated by hypotension, new severe systolic heart failure,cardiogenic shock and acute kidney failure of uncertain etiology. Ischemic evaluation prior to discharge to subacute rehab. Denies chest pain or SOB. Patient Status Risk Factors Asthma, COPD, diabetes mellitus and hypertension. Stress Data Procedure: initial setup. A baseline ECG was recorded, ECG tracings were obtained using the Q-Stress 2 machine. Surface ECG leads and manual cuff blood pressure measurements were monitored. Lung sounds: Normal. Regadenoson. Baseline blood pressure was normal. Pre test likelihood of obstructive CAD: 22. Patient experienced no chest pain. The patient tolerated the procedure well and was discharged from the lab. Medications ARBs, beta blockers, aspirin, anticoagulants and diuretics. Nuclear Stress Additional Findings Multiple gallstones. Scarring at the lung periphery R; Left upper lobe pulmonary nodule measuring 4 mm. Perfusion Defect There was a mild intensity, small sized fixed perfusion defect in the apical inferior wall(s) and apex. This indicated small infarction in the RCA coronary territory. Image Protocol Myocardial perfusion imaging using SPECT/CT was performed. The study was a 1-day rest-stress study. Attenuation correction was used. The patient was imaged in the supine position. Images acquired at rest and post stress were processed and reviewed. Nuc Impression There was evidence of small infarction and cardiomyopathy. Abnormal study after pharmacological stress. Perfusion Scoring Resting Summed Score: 2 Percent Normal: 2.94% Mild count reduction in the following segments: apical inferior and apex. All other segments are normal. Perfusion Scoring Stress Summed Score: 2 Percent Normal: 2.94% Mild count reduction in the following segments: apical inferior and apex. All other segments are normal. Perfusion Scores: SRS Score: 2 Percentage Abnormal: 2.94% Perfusion Scores: SSS Score: 2 Percentage Abnormal: 2.94% Perfusion Scores: SDS Score: 0 Percentage Abnormal: 0.00% Leonor Zamudio MD MPH CARDIAC NM ORDERABLE S * TROPONIN I (07/19/2023 3:18 EDT) Troponin I (ng/mL) <0.034 <0.034 ng/mL 07/19/2023 3:53 EDT [facility] Blood BLOOD SAMPLE TAKEN FROM CENTRAL LINE / Unknown 07/19/2023 3:18 EDT 07/19/2023 3:24 EDT Narrative [facility] - 07/19/2023 3:53 EDT The results of this assay can be falsely lowered due to the consumption of Biotin. Juli Inman MD CHEMISTRY & BLOOD GA S ORDERABLES Performing Organization Address [facility] Co de Phone Number [facility] [address], [place] [phone] * CBC HEMOLYSIS REVIEW (07/19/2023 2:57 EDT) Schistocytes Increased schistocytes are seen but less than 1% (1+) of the RBCs 07/19/2023 3:59 EDT [facility] Spherocytes No increase in spherocytes seen. 07/19/2023 3:59 EDT [facility] Differential Comment There is no significant increase in schistocytes or spherocytes. There is no morphologic evidence of hemolysis. 07/19/2023 3:59 EDT [facility] Blood BLOOD SAMPLE TAKEN FROM CENTRAL LINE / Unknown Venipuncture / Unknown 07/19/2023 2:57 EDT 07/19/2023 3:02 EDT Leonor Zamudio MD MPH HEMATOLOGY & PF4 ORD ERABLES Performing Organization Address [facility] Co de Phone Number [facility] [address], [place] [phone] * (ABNORMAL) BASIC METABOLIC PANEL (BMP) (07/19/2023 2:57 EDT) Sodium 137 136 - 145 mmol/L 07/19/2023 3:20 EDT [facility] Potassium 4.3 3.5 - 5.0 mmol/L 07/19/2023 3:20 EDT [facility] Chloride 108 96 - 110 mmol/L 07/19/2023 3:20 EDT [facility] CO2 Total 20(L) 22 - 32 mmol/L 07/19/2023 3:20 EDT [facility] Anion Gap 9 5 - 14 mmol/L 07/19/2023 3:20 EDT [facility] Glucose 88 70 - 99 mg/dl 07/19/2023 3:20 T [facility] Calcium 8.6 8.5 - 10.5 mg/dL 07/19/2023 3:20 [facility] BUN 24 10 - 26 mg/dL 07/19/2023 3:20 [facility] Creatinine 2.01(H) 0.66 - 1.25 mg/dL 07/19/2023 3:20 [facility] eGFR 35(L) >60 mL/min/1.73 m2 07/19/2023 3:20 [facility] Blood BLOOD SAMPLE TAKEN FROM CENTRAL LINE / Unknown Venipuncture / Unknown 07/19/2023 2:57 EDT 07/19/2023 3:02 EDT Sandeep Breen MD CHEMISTRY & BLOOD GA S ORDERABLES Performing Organization Address City/State/[facility] Co de Phone Number [facility] [address] [place] [address] * (ABNORMAL) COMPLETE BLOOD COUNT (07/19/2023 2:57 EDT) WBC 10.88(H) 4.00 - 10.40 K/cmm 07/19/2023 3:14 [facility] RBC 2.87(L) 4.36 - 5.78 M/cmm 07/19/2023 3:14 [facility] Hemoglobin 8.1(L) 13.8 - 17.3 g/dL 07/19/2023 3:14 [facility] HCT 26.0(L) 39.5 - 50.2 % 07/19/2023 3:14 [facility] MCV 91 81 - 95 fL 07/19/2023 3:14 [facility] MCH 28.2 27.6 - 33.0 pg 07/19/2023 3:14 [facility] MCHC 31.2(L) 32.8 - 36.4 g/dL 07/19/2023 3:14 [facility] RDW-CV 07/19/2023 3:14 EDT [facility] Comment:Unreportable due to aberrant RBC size distribution RDW-SD 07/19/2023 3:14 EDT [facility] Comment:Unreportable due to aberrant RBC size distribution PLT 358 141 - 377 K/cmm 07/19/2023 3:14 EDT [facility] MPV 10.9 9.5 - 12.7 fL 07/19/2023 3:14 EDT [facility] Blood BLOOD SAMPLE TAKEN FROM CENTRAL LINE / Unknown Venipuncture / Unknown 07/19/2023 2:57 EDT 07/19/2023 3:02 EDT Leonor Zamudio MD MPH HEMATOLOGY & PF4 ORD ERABLES Performing Organization Address [facility] de Phone Number [facility] [address] [place] [address] * MAGNESIUM (07/19/2023 2:57 EDT) Magnesium 2.2 1.7 - 2.8 mg/dL 07/19/2023 3:20 EDT [facility] Blood BLOOD SAMPLE TAKEN FROM CENTRAL LINE / Unknown Venipuncture / Unknown 07/19/2023 2:57 EDT 07/19/2023 3:02 EDT Davian Murrell MD CHEMISTRY & BLOOD GA S ORDERABLES Performing Organization Address [facility] de Phone Number [facility] [address], [place] [phone] * EKG 12-LEAD (07/18/2023 23:45 EDT) 07/18/2023 23:4 5 EDT Narrative [facility] EKG - 08/06/2023 14:38 EDT ? [facility] ? Test Date: ?2023-07-18 Pat Name: ? DERRICK PILOTTE ? Department: ?? M623-2 ? Room: ? Gender: ? Male ? 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 [id number] : ?1955 ? Requested By: SUNNY BARTSCH MD Order Number: ?Reading MD: ?? MILLY FAUSTINO MD ? Measurements Intervals ?[place] ? Rate: ? 93 ? P: ?0 AR: ? 0 ?QRS: ?26 QRSD: ? 110 ?T: ?114 QT: ? 342 ? QTc: ?426 ? Interpretive Statements ATRIAL FIBRILLATION NON SPECIFIC ST T CHANGES, CONSIDER ISCHEMIA ABNORMAL EKG I reviewed the tracing and have either agreed or edited the findings in this report. Electronically Signed On 08-06-2023 14:38:55 EDT by MILLY HARMON MD. 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 Electronically Signed On 08-06-2023 14:38:55 EDT by BAO STEVENS. Sunny Georges MD CARDIAC ECG ORDERABLES [facility] EKG * (ABNORMAL) BASIC METABOLIC PANEL (BMP) (07/18/2023 4:38 EDT) Sodium 135(L) 136 - 145 mmol/L 07/18/2023 5:20 EDT [facility] Potassium 3.8 3.5 - 5.0 mmol/L 07/18/2023 5:20 EDT [facility] Chloride 108 96 - 110 mmol/L 07/18/2023 5:20 EDT [facility] CO2 Total 17(L) 22 - 32 mmol/L 07/18/2023 5:20 EDT [facility] Anion Gap 10 5 - 14 mmol/L 07/18/2023 5:20 EDT [facility] Glucose 137(H) 70 - 99 mg/dl 07/18/2023 5:20 EDT [facility] Calcium 8.7 8.5 - 10.5 mg/dL 07/18/2023 5:20 EDT [facility] BUN 23 10 - 26 mg/dL 07/18/2023 5:20 T [facility] Creatinine 1.93(H) 0.66 - 1.25 mg/dL 07/18/2023 5:20 EDT [facility] eGFR 37(L) >60 mL/min/1.73 m2 07/18/2023 5:20 EDT [facility] Blood BLOOD SAMPLE TAKEN FROM CENTRAL LINE / Unknown Venipuncture / Unknown 07/18/2023 4:38 EDT 07/18/2023 4:47 EDT Sandepe Breen MD CHEMISTRY & BLOOD GA S ORDERABLES Performing Organization Address City/[facility]/ZIP Co de Phone Number [facility] [address] [place] [address] * (ABNORMAL) PHOSPHORUS (07/18/2023 4:38 EDT) Phosphorus 4.6(H) 2.5 - 4.5 mg/dL 07/18/2023 5:20 EDT [facility] Blood BLOOD SAMPLE TAKEN FROM CENTRAL LINE / Unknown Venipuncture / Unknown 07/18/2023 4:38 EDT 07/18/2023 4:47 EDT Khushi Young MD CHEMISTRY & BLOOD G ORDERABLES Performing Organization Address City/[facility]/ZIP Co de Phone Number [facility] [address] [place] [address] * MAGNESIUM (07/18/2023 4:38 EDT) Pathologist [facility] Magnesium 1.7 1.7 - 2.8 mg/dL 07/18/2023 5:20 EDT [facility] Blood BLOOD SAMPLE TAKEN FROM CENTRAL LINE / Unknown Venipuncture / Unknown 07/18/2023 4:38 EDT 07/18/2023 4:47 EDT Davian Murrell MD CHEMISTRY & BLOOD GA S ORDERABLES Performing Organization Address [facility]/ZIP Co de Phone Number [facility] [address] [place] [address] * (ABNORMAL) PROTIME (07/18/2023 4:38 EDT) [facility] I.N.R. 1.2(H) 0.9 - 1.1 Ratio 07/18/2023 5:04 EDT [facility] Pro Time 13.2(H) 9.7 - 12.8 secs 07/18/2023 5:04 EDT [facility] Blood BLOOD SAMPLE TAKEN FROM CENTRAL LINE / Unknown Venipuncture / Unknown 07/18/2023 4:38 EDT 07/18/2023 4:43 EDT Narrative [facility] - 07/18/2023 5:04 EDT Moderate Intensity Coumadin INR = 2.0-3.0 Adjustments in anticoagulant therapy dose should be based on the INR and NOT on the Protime. Khushi Young MD HEMATOLOGY & PF4 OR DERABLES Performing Organization Address City/[facility]/ZIP Co de Phone Number [facility] [address] [place] [address] * (ABNORMAL) COMPLETE BLOOD COUNT (07/18/2023 4:37 EDT) [facility] WBC 10.20 4.00 - 10.40 K/cmm 07/18/2023 4:55 EDT [facility] RBC 2.84(L) 4.36 - 5.78 M/cmm 07/18/2023 4:55 T [facility] Hemoglobin 8.1(L) 13.8 - 17.3 g/dL 07/18/2023 4:55 T [facility] HCT 25.7(L) 39.5 - 50.2 % 07/18/2023 4:55 [facility] MCV 91 81 - 95 fL 07/18/2023 4:55 EDT [facility] MCH 28.5 27.6 - 33.0 pg 07/18/2023 4:55 [facility] MCHC 31.5(L) 32.8 - 36.4 g/dL 07/18/2023 4:55 [facility] RDW-CV 07/18/2023 4:55 [facility] Comment:Unreportable due to aberrant RBC size distribution RDW-SD 07/18/2023 4:55 [facility] Comment:Unreportable due to aberrant RBC size distribution PLT 375 141 - 377 K/cmm 07/18/2023 4:55 [facility] MPV 11.9 9.5 - 12.7 fL 07/18/2023 4:55 [facility] Blood BLOOD SAMPLE TAKEN FROM CENTRAL LINE / Unknown Venipuncture / Unknown 07/18/2023 4:37 EDT 07/18/2023 4:43 EDT Leonor Zamudio MD MPH HEMATOLOGY & PF4 ORD ERABLES [facility] [address] [place] [address] * POCT GLUCOSE, INTERFACED (07/17/2023 13:30 EDT) Glucose, POC 96 70 - 100 mg/dL 07/17/2023 13:32 EDT [facility] HN LAB POC COMMENT (GLUCOSE) Test Performed by Nursing Services 07/17/2023 13:32 [facility] Blood CAPILLARY BLOOD / Unknown 07/17/2023 13:30 EDT 07/17/2023 13:32 EDT Sunny Georges MD POINT OF CA RE TEST ORDERABLES [facility] [address] [place] [address] * TRANSTHORACIC ECHO (TTE) LIMITED W/DOPPLER W/CF W/ CONTRAST (07/17/2023 11:07 EDT) LV Diastolic Volume 173 mL [facility] LV Systolic Volume 88 mL [facility] LV ejection fraction, 1-p A4C 38 % [facility] LV ejection fraction, 1-p A2C 44 % [facility] EF 41 % [facility] LV ID, ES, PLAX 4.4 2.1 - 4.0 cm [facility] LV PW thickness, ED, PLAX 1.0 0.6 - 1.1 cm [facility] LV ID, ED, PLAX 5.9 3.5 - 6.0 cm [facility] LVIDD BY MMODE 5.9 cm [facility] LV end-diastolic volume, 1-p A4C 153 ml [facility] LV end diastolic volume 1-p A2C 110 ml [facility] Interventricular Septum to Posterior Wall Thickness Ratio 1.2 [facility] P OINT OF CARE Anatomical Region Laterality Modality Ultrasound Narrative 07/17/2023 12:51 EDT ?Left??Ventricle: Left ventricular systolic function was moderately decreased with an ejection fraction of 35-40%. There was severe hypokinesis of the mid anterior wall and apex. Global longitudinal strain was abnormal. . Left Ventricle The left ventricular cavity was in the upper limits of normal in size. Left ventricular systolic function was moderately decreased with an ejection fraction of 35-40%. There was severe hypokinesis of the mid anterior wall and apex. Global longitudinal strain was abnormal. . Right Ventricle The right ventricular cavity was normal in size. Right ventricular systolic function was normal. Right ventricular wall thickness was normal. Left Atrium The left atrium was normal in size. Right Atrium The right atrium was normal in size. IVC/SVC The inferior vena cava was not well visualized. Mitral Valve Mitral valve structure was normal. Tricuspid Valve Tricuspid valve structure was normal. There was no significant tricuspid valve regurgitation. Aortic Valve The aortic valve was not assessed. Pulmonic Valve The pulmonic valve was not assessed. Ascending Aorta The aorta was not assessed. Pericardium There was no significant pericardial effusion. Study Details Study status: Routine. Transthoracic echocardiography. M-Mode, complete 2D, complete spectral Doppler, and color Doppler.The study was interpreted by [facility]. Pertinent images and digital data are archived for permanent storage and are available for subsequent review. Scanning was performed from the apical, parasternal and subcostal acoustic windows. Definity contrast was used during the study. Overall the study quality was adequate. The study was difficult due to patient clinical status and heart rhythm. Images were obtained using cardiac ultrasound machine EPIQ #[id number]. Dalia Lim MD CARDIAC ECHO ORDERA BLES * (ABNORMAL) HEPATIC FUNCTION PANEL (ALB,ALK PHOS,ALT,AST,DBIL,TOT BETO,TOT PROT) (07/17/2023 5:27 EDT) Total Protein 6.5 6.3 - 8.2 g/dL 024 11:33 [facility] Albumin 2.7(L) 3.4 - 4.9 g/dL 07/17/2023 11:33 [facility] Bilirubin, Total 3.9(H) <1.4 mg/dL 07/17/19 24 11:33 [facility] Conjugated Bilirubin 0.3 <=0.3 mg/dL 07/17/2023 11:33 [facility] Unconjugated Bilirubin 0.9 <=1.1 mg/dL 07/17/2023 11:33 [facility] Delta Bilirubin 2.7 Not Established mg/dL 07/17/2023 11:33 [facility] Comment:Delta Bilirubin occu rs in extended conjugated hyperbilirubinemia. Alkaline Phosphatase 110 38 - 126 U/L 07/17/2023 11:33 T [facility] ALT 60(H) <50 U/L 07/17/2023 11:33 [facility] AST 64(H) 15 - 46 U/L 07/17/2023 11:33 [facility] Calculated Total Bilirubin 1.2 <1.4 mg/dL 07/17/2023 11:33 T [facility] Blood VENOUS BLOOD / Unknown Venipuncture / Unknown 07/17/2023 5:27 EDT 07/17/2023 5:38 EDT Leonor Zamudio MD MPH CHEMISTRY & BLOOD GA S ORDERABLES [facility] [address] [place] [address] * (ABNORMAL) BASIC METABOLIC PANEL (BMP) (07/17/2023 5:27 EDT) Sodium 137 136 - 145 mmol/L 07/17/2023 6:15 [facility] Potassium 3.8 3.5 - 5.0 mmol/L 07/17/2023 6:15 [facility] Chloride 108 96 - 110 mmol/L 07/17/2023 6:15 [facility] CO2 Total 19(L) 22 - 32 mmol/L 07/17/2023 6:15 [facility] Anion Gap 10 5 - 14 mmol/L 07/17/2023 6:15 [facility] Glucose 97 70 - 99 mg/dl 07/17/2023 6:15 [facility] Calcium 8.7 8.5 - 10.5 mg/dL 07/17/2023 6:15 [facility] BUN 29(H) 10 - 26 mg/dL 07/17/2023 6:15 [facility] Creatinine 1.89(H) 0.66 - 1.25 mg/dL 07/17/2023 6:15 [facility] eGFR 38(L) >60 mL/min/1.73 m2 07/17/2023 6:15 EDT [facility] Blood VENOUS BLOOD / Unknown Venipuncture / Unknown 07/17/2023 5:27 EDT 07/17/2023 5:38 EDT Sandeep Breen MD CHEMISTRY & BLOOD GA S ORDERABLES Performing Organization Address City/[facility]/ZIP Co de Phone Number [facility] [address] [place] [address] * PHOSPHORUS (07/17/2023 5:27 EDT) Phosphorus 4.5 2.5 - 4.5 mg/dL 07/17/2023 6:15 EDT [facility] Blood VENOUS BLOOD / Unknown Venipuncture / Unknown 07/17/2023 5:27 EDT 07/17/2023 5:38 EDT Khushi Young MD CHEMISTRY & BLOOD G ORDERABLES Performing Organization Address [facility]/ZIP Co de Phone Number [facility] [address] [place] [address] * (ABNORMAL) MAGNESIUM (07/17/2023 5:27 EDT) Magnesium 1.6(L) 1.7 - 2.8 mg/dL 07/17/2023 6:15 EDT [facility] Blood VENOUS BLOOD / Unknown Venipuncture / Unknown 07/17/2023 5:27 EDT 07/17/2023 5:38 EDT Davian Murrell MD CHEMISTRY & BLOOD GA S ORDERABLES Performing Organization Address [facility]/ZIP Co de Phone Number [facility] [address] [place] [address] * (ABNORMAL) PROTIME (07/17/2023 5:27 EDT) I.N.R. 1.2(H) 0.9 - 1.1 Ratio 07/17/2023 6:03 [facility] Pro Time 14.0(H) 9.7 - 12.8 secs 07/17/2023 6:03 [facility] Blood VENOUS BLOOD / Unknown Venipuncture / Unknown 07/17/2023 5:27 EDT 07/17/2023 5:44 EDT Narrative [facility] - 07/17/2023 6:03 EDT Moderate Intensity Coumadin INR = 2.0-3.0 Adjustments in anticoagulant therapy dose should be based on the INR and NOT on the Protime. Khushi Young MD HEMATOLOGY & PF4 OR DERABLES [facility] [address] [place] [address] * (ABNORMAL) COMPLETE BLOOD COUNT (07/17/2023 5:26 EDT) [facility] WBC 9.60 4.00 - 10.40 K/cmm 07/17/2023 5:46 [facility] RBC 2.67(L) 4.36 - 5.78 M/cmm 07/17/2023 5:46 [facility] Hemoglobin 7.5(L) 13.8 - 17.3 g/dL 07/17/2023 5:46 [facility] HCT 23.8(L) 39.5 - 50.2 % 07/17/2023 5:46 [facility] MCV 89 81 - 95 fL 07/17/2023 5:46 [facility] MCH 28.1 27.6 - 33.0 pg 07/17/2023 5:46 [facility] MCHC 31.5(L) 32.8 - 36.4 g/dL 07/17/2023 5:46 [facility] RDW-CV 07/17/2023 5:46 [facility] Comment:Unreportable due to aberrant RBC size distribution RDW-SD 07/17/2023 5:46 EDT [facility] Comment:Unreportable due to aberrant RBC size distribution PLT 355 141 - 377 K/cmm 07/17/2023 5:46 [facility] MPV 11.6 9.5 - 12.7 fL 07/17/2023 5:46 EDT [facility] Blood VENOUS BLOOD / Unknown Venipuncture / Unknown 07/17/2023 5:26 EDT 07/17/2023 5:38 EDT Leonor Zamudio MD MPH HEMATOLOGY & PF4 ORD ERABLES [facility] [address] [place] [address] * (ABNORMAL) BASIC METABOLIC PANEL (BMP) (07/16/2023 5:14 EDT) Sodium 136 136 - 145 mmol/L 07/16/2023 5:46 [facility] Potassium 3.7 3.5 - 5.0 mmol/L 07/16/2023 5:46 [facility] Chloride 109 96 - 110 mmol/L 07/16/2023 5:46 [facility] CO2 Total 16(L) 22 - 32 mmol/L 07/16/2023 5:46 [facility] Anion Gap 11 5 - 14 mmol/L 07/16/2023 5:46 [facility] Glucose 150(H) 70 - 99 mg/dl 07/16/2023 5:46 [facility] Calcium 8.8 8.5 - 10.5 mg/dL 07/16/2023 5:46 [facility] BUN 31(H) 10 - 26 mg/dL 07/16/2023 5:46 [facility] Creatinine 2.11(H) 0.66 - 1.25 mg/dL 07/16/2023 5:46 [facility] eGFR 33(L) >60 mL/min/1.73 m2 07/16/2023 5:46 [facility] Blood VENOUS BLOOD / Unknown Venipuncture / Unknown 07/16/2023 5:14 EDT 07/16/2023 5:19 EDT Sandeep Breen MD CHEMISTRY & BLOOD GA S ORDERABLES [facility] [address] [place] [address] * (ABNORMAL) COMPLETE BLOOD COUNT (07/16/2023 5:14 EDT) WBC 10.58(H) 4.00 - 10.40 K/cmm 07/16/2023 5:27 [facility] RBC 2.85(L) 4.36 - 5.78 M/cmm 07/16/2023 5:27 [facility] Hemoglobin 7.9(L) 13.8 - 17.3 g/dL 07/16/2023 5:27 [facility] HCT 24.9(L) 39.5 - 50.2 % 07/16/2023 5:27 [facility] MCV 87 81 - 95 fL 07/16/2023 5:27 [facility] MCH 27.7 27.6 - 33.0 pg 07/16/2023 5:27 [facility] MCHC 31.7(L) 32.8 - 36.4 g/dL 07/16/2023 5:27 [facility] RDW-CV 07/16/2023 5:27 [facility] Comment:Unreportable due to aberrant RBC size distribution RDW-SD 07/16/2023 5:27 [facility] Comment:Unreportable due to aberrant RBC size distribution PLT 364 141 - 377 K/cmm 07/16/2023 5:27 [facility] MPV 11.4 9.5 - 12.7 fL 07/16/2023 5:27 [facility] Blood VENOUS BLOOD / Unknown Venipuncture / Unknown 07/16/2023 5:14 EDT 07/16/2023 5:19 EDT Leonor Zamudio MD MPH HEMATOLOGY & PF4 ORD ERABLES Performing Organization Address City/[facility] Co de Phone Number [facility] [address] [place] [address] * PHOSPHORUS (07/16/2023 5:14 EDT) Phosphorus 4.5 2.5 - 4.5 mg/dL 07/16/2023 5:46 EDT [facility] Blood VENOUS BLOOD / Unknown Venipuncture / Unknown 07/16/2023 5:14 EDT 07/16/2023 5:19 EDT Khushi Young MD CHEMISTRY & BLOOD G ORDERABLES Performing Organization Address [place] [facility] Co de Phone Number [facility] [address], [place] [id number] * MAGNESIUM (07/16/2023 5:14 EDT) Magnesium 1.9 1.7 - 2.8 mg/dL 07/16/2023 5:46 EDT [facility] Blood VENOUS BLOOD / Unknown Venipuncture / Unknown 07/16/2023 5:14 EDT 07/16/2023 5:19 EDT Davian Murrell MD CHEMISTRY & BLOOD GA S ORDERABLES Performing Organization Address [facility] Co de Phone Number [facility] [address] [place] [address] * (ABNORMAL) PROTIME (07/16/2023 5:14 EDT) I.N.R. 1.2(H) 0.9 - 1.1 Ratio 07/16/2023 5:41 EDT [facility] Pro Time 13.7(H) 9.7 - 12.8 secs 07/16/2023 5:41 EDT [facility] Blood VENOUS BLOOD / Unknown Venipuncture / Unknown 07/16/2023 5:14 EDT 07/16/2023 5:19 EDT Narrative [facility] - 07/16/2023 5:41 EDT Moderate Intensity Coumadin INR = 2.0-3.0 Adjustments in anticoagulant therapy dose should be based on the INR and NOT on the Protime. 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 GICAL ORDERABLES * (ABNORMAL) BASIC METABOLIC PANEL (BMP) (07/15/2023 3:49 EDT) Sodium 137 136 - 145 mmol/L 07/15/2023 4:23 [facility] Potassium 3.9 3.5 - 5.0 mmol/L 07/15/2023 4:23 [facility] Chloride 110 96 - 110 mmol/L 07/15/2023 4:23 [facility] CO2 Total 16(L) 22 - 32 mmol/L 07/15/2023 4:23 [facility] Anion Gap 11 5 - 14 mmol/L 07/15/2023 4:23 [facility] Glucose 113(H) 70 - 99 mg/dl 07/15/2023 4:23 [facility] Calcium 8.7 8.5 - 10.5 mg/dL 07/15/2023 4:23 [facility] BUN 43(H) 10 - 26 mg/dL 07/15/2023 4:23 [facility] Creatinine 2.31(H) 0.66 - 1.25 mg/dL 07/15/2023 4:23 [facility] eGFR 30(L) >60 mL/min/1.73 m2 07/15/2023 4:23 [facility] Blood VENOUS BLOOD / Unknown Venipuncture / Unknown 07/15/2023 3:49 EDT 07/15/2023 3:56 EDT Sandeep Breen MD CHEMISTRY & BLOOD GA S ORDERABLES [facility] [address] [place] [address] * (ABNORMAL) COMPLETE BLOOD COUNT (07/15/2023 3:49 EDT) WBC 11.73(H) 4.00 - 10.40 K/cmm 07/15/2023 4:07 [facility] RBC 2.68(L) 4.36 - 5.78 M/cmm 07/15/2023 4:07 [facility] Hemoglobin 7.4(L) 13.8 - 17.3 g/dL 07/15/2023 4:07 [facility] HCT 23.4(L) 39.5 - 50.2 % 07/15/2023 4:07 [facility] MCV 87 81 - 95 fL 07/15/2023 4:07 [facility] MCH 27.6 27.6 - 33.0 pg 07/15/2023 4:07 [facility] MCHC 31.6(L) 32.8 - 36.4 g/dL 07/15/2023 4:07 [facility] RDW-CV 07/15/2023 4:07 [facility] Comment:Unreportable due to aberrant RBC size distribution RDW-SD 07/15/2023 4:07 [facility] Comment:Unreportable due to aberrant RBC size distribution PLT 344 141 - 377 K/cmm 07/15/2023 4:07 EDT [facility] MPV 12.0 9.5 - 12.7 fL 07/15/2023 4:07 EDT [facility] Blood VENOUS BLOOD / Unknown Venipuncture / Unknown 07/15/2023 3:49 EDT 07/15/2023 3:56 EDT Leonor Zamudio MD MPH HEMATOLOGY & PF4 ORD ERABLES Performing Organization Address City/[facility]/ZIP Co de Phone Number [facility] [address] [place] [address] * (ABNORMAL) PHOSPHORUS (07/15/2023 3:49 EDT) Phosphorus 4.8(H) 2.5 - 4.5 mg/dL 07/15/2023 4:23 EDT [facility] Blood VENOUS BLOOD / Unknown Venipuncture / Unknown 07/15/2023 3:49 EDT 07/15/2023 3:56 EDT Khushi Young MD CHEMISTRY & BLOOD G ORDERABLES Performing Organization Address [facility]/ZIP Co de Phone Number [facility] [address] [place] [address] * (ABNORMAL) MAGNESIUM (07/15/2023 3:49 EDT) Magnesium 1.6(L) 1.7 - 2.8 mg/dL 07/15/2023 4:23 EDT [facility] Blood VENOUS BLOOD / Unknown Venipuncture / Unknown 07/15/2023 3:49 EDT 07/15/2023 3:56 EDT Davian Murrell MD CHEMISTRY & BLOOD GA S ORDERABLES Performing Organization Address City/[facility]/ZIP Co de Phone Number [facility] [address], [place] [id number] * (ABNORMAL) PROTIME (07/15/2023 3:49 EDT) Pathologist [facility] I.N.R. 1.3(H) 0.9 - 1.1 Ratio 07/15/2023 4:15 EDT [facility] Pro Time 14.1(H) 9.7 - 12.8 secs 07/15/2023 4:15 EDT [facility] Blood VENOUS BLOOD / Unknown Venipuncture / Unknown 07/15/2023 3:49 EDT 07/15/2023 3:57 EDT Narrative [facility] - 07/15/2023 4:15 EDT Moderate Intensity Coumadin INR = 2.0-3.0 Adjustments in anticoagulant therapy dose should be based on the INR and NOT on the Protime. Khushi Young MD HEMATOLOGY & PF4 OR DERABLES Performing Organization Address City/[facility]/ZIP Co de Phone Number [facility] [address], [place] [address] * LDH (07/14/2023 14:48 EDT) [facility] LDH 231 120 - 246 U/L 07/14/2023 17:35 EDT [facility] Blood VENOUS BLOOD / Unknown Venipuncture / Unknown 07/14/2023 14:48 EDT 07/14/2023 15:13 EDT Snehal Coffey MD CHEMISTRY & BLOOD GA S ORDERABLES [facility] [address], [place] [id number] * HAPTOGLOBIN (07/14/2023 14:48 EDT) [facility] Haptoglobin 98 32 - 197 mg/dL 07/16/2023 10:06 EDT [facility] Blood VENOUS BLOOD / Unknown Venipuncture / Unknown 07/14/2023 14:48 EDT 07/14/2023 15:13 EDT Snehal Coffey MD CHEMISTRY & BLOOD GA S ORDERABLES Performing Organization Address City/[facility]/ZIP Co de Phone Number [facility] [address] [place] [address] * (ABNORMAL) ELECTROLYTES (07/14/2023 14:48 EDT) Sodium 142 136 - 145 mmol/L 07/14/2023 15:27 EDT [facility] Potassium 4.2 3.5 - 5.0 mmol/L 07/14/2023 15:27 EDT [facility] Chloride 113(H) 96 - 110 mmol/L 07/14/2023 15:27 EDT [facility] CO2 Total 15(L) 22 - 32 mmol/L 07/14/2023 15:27 EDT [facility] Anion Gap 14 5 - 14 mmol/L 07/14/2023 15:27 EDT [facility] Blood VENOUS BLOOD / Unknown Venipuncture / Unknown 07/14/2023 14:48 EDT 07/14/2023 15:13 EDT Snehal Coffey MD CHEMISTRY & BLOOD GA S ORDERABLES Performing Organization Address [facility] Co de Phone Number [facility] [address] [place] [address] * (ABNORMAL) RETICULOCYTE COUNT (07/14/2023 14:47 EDT) Retic Ct (Uncorrected) 6.1(H) 0.5 - 2.5 % 07/14/2023 17:59 EDT [facility] Blood VENOUS BLOOD / Unknown Venipuncture / Unknown 07/14/2023 14:47 EDT 07/14/2023 15:13 EDT Snehal Coffey MD HEMATOLOGY & PF4 ORD ERABLES [facility] [address] [place] [address] * CBC HEMOLYSIS REVIEW (07/14/2023 14:47 EDT) Schistocytes Increased schistocytes are seen but less than 1% (1+) of the RBCs 07/14/2023 16:06 EDT [facility] Spherocytes 1+ 07/14/2023 16:06 EDT [facility] Differential Comment Increased spherocytes seen. In the absence of recent transfusion, the findings suggest RBC hemolysis. 07/14/2023 16:06 EDT [facility] Blood VENOUS BLOOD / Unknown Venipuncture / Unknown 07/14/2023 14:47 EDT 07/14/2023 15:13 EDT June Luiza STEVENS HEMATOLOGY & PF4 ORD ERABLES [facility] [address] [place] [address] * (ABNORMAL) COMPLETE BLOOD COUNT (07/14/2023 14:47 EDT) WBC 11.82(H) 4.00 - 10.40 K/cmm 07/14/2023 15:54 T [facility] RBC 2.83(L) 4.36 - 5.78 M/cmm 07/14/2023 15:54 T [facility] Hemoglobin 7.8(L) 13.8 - 17.3 g/dL 07/14/2023 15:54 EDT [facility] HCT 25.1(L) 39.5 - 50.2 % 07/14/2023 15:54 T [facility] MCV 89 81 - 95 fL 07/14/2023 15:54 T [facility] MCH 27.6 27.6 - 33.0 pg 07/14/2023 15:54 EDT [facility] MCHC 31.1(L) 32.8 - 36.4 g/dL 07/14/2023 15:54 T [facility] RDW-CV 07/14/2023 15:54 EDT [facility] Comment:Unreportable due to aberrant RBC size distribution RDW-SD 07/14/2023 15:54 EDT [facility] Comment:Unreportable due to aberrant RBC size distribution PLT 346 141 - 377 K/cmm 07/14/2023 15:54 EDT [facility] MPV 11.5 9.5 - 12.7 fL 07/14/2023 15:54 EDT [facility] Blood VENOUS BLOOD / Unknown Venipuncture / Unknown 07/14/2023 14:47 EDT 07/14/2023 15:13 EDT Snehal Coffey MD HEMATOLOGY & PF4 ORD ERABLES Performing Organization Address City/[facility]/ZIP Co de Phone Number [facility] [address] [place] [address] * (ABNORMAL) PROTIME (07/14/2023 5:31 EDT) I.N.R. 1.3(H) 0.9 - 1.1 Ratio 07/14/2023 6:09 EDT [facility] Pro Time 14.1(H) 9.7 - 12.8 secs 07/14/2023 6:09 EDT [facility] Blood VENOUS BLOOD / Unknown Venipuncture / Unknown 07/14/2023 5:31 EDT 07/14/2023 5:48 EDT Narrative [facility] - 07/14/2023 6:09 EDT Moderate Intensity Coumadin INR = 2.0-3.0 Adjustments in anticoagulant therapy dose should be based on the INR and NOT on the Protime. Khushi Young MD HEMATOLOGY & PF4 OR DERABLES Performing Organization Address City/[facility] Co de Phone Number [facility] [address] [place] [address] * (ABNORMAL) COMPLETE BLOOD COUNT (07/14/2023 5:30 EDT) WBC 12.49(H) 4.00 - 10.40 K/cmm 07/14/2023 5:50 [facility] RBC 2.77(L) 4.36 - 5.78 M/cmm 07/14/2023 5:50 [facility] Hemoglobin 7.6(L) 13.8 - 17.3 g/dL 07/14/2023 5:50 [facility] HCT 24.1(L) 39.5 - 50.2 % 07/14/2023 5:50 [facility] MCV 87 81 - 95 fL 07/14/2023 5:50 [facility] MCH 27.4(L) 27.6 - 33.0 pg 07/14/2023 5:50 [facility] MCHC 31.5(L) 32.8 - 36.4 g/dL 07/14/2023 5:50 [facility] RDW-CV 07/14/2023 5:50 [facility] Comment:Unreportable due to aberrant RBC size distribution RDW-SD 07/14/2023 5:50 [facility] Comment:Unreportable due to aberrant RBC size distribution PLT 344 141 - 377 K/cmm 07/14/2023 5:50 [facility] MPV 11.7 9.5 - 12.7 fL 07/14/2023 5:50 [facility] Blood VENOUS BLOOD / Unknown Venipuncture / Unknown 07/14/2023 5:30 EDT 07/14/2023 5:41 EDT Leonor Zamudio MD MPH HEMATOLOGY & PF4 ORD ERABLES [facility] [address] [place] [address] * (ABNORMAL) HEPATIC FUNCTION PANEL (ALB,ALK PHOS,ALT,AST,DBIL,TOT BETO,TOT PROT) (07/14/2023 5:29 EDT) Total Protein 6.7 6.3 - 8.2 g/dL 024 11:03 [facility] Albumin 2.9(L) 3.4 - 4.9 g/dL 07/14/2023 11:03 [facility] Bilirubin, Total 5.8(H) <1.4 mg/dL 07/14/19 24 11:03 [facility] Conjugated Bilirubin 1.7(H) <=0.3 mg/dL 07/14/2023 11:03 [facility] Unconjugated Bilirubin 1.0 <=1.1 mg/dL 07/14/2023 11:03 [facility] Delta Bilirubin 3.1 Not Established mg/dL 07/14/2023 11:03 [facility] Comment:Delta Bilirubin occu rs in extended conjugated hyperbilirubinemia. Alkaline Phosphatase 86 38 - 126 U/L 07/14/2023 11:03 [facility] ALT 65(H) <50 U/L 07/14/2023 11:03 [facility] AST 62(H) 15 - 46 U/L 07/14/2023 11:03 [facility] Calculated Total Bilirubin 2.7(H) <1.4 mg/dL 07/14/2023 11:03 [facility] Blood VENOUS BLOOD / Unknown Venipuncture / Unknown 07/14/2023 5:29 EDT 07/14/2023 5:41 EDT Lisa Davis MD CHEMISTRY & BLOOD GAS ORDERABLES [facility] [address] [place] [address] * (ABNORMAL) BASIC METABOLIC PANEL (BMP) (07/14/2023 5:29 EDT) Sodium 143 136 - 145 mmol/L 07/14/2023 5:56 EDT [facility] Potassium 4.2 3.5 - 5.0 mmol/L 07/14/2023 5:56 EDT [facility] Chloride 113(H) 96 - 110 mmol/L 07/14/2023 5:56 EDT [facility] CO2 Total 16(L) 22 - 32 mmol/L 07/14/2023 5:56 EDT [facility] Anion Gap 14 5 - 14 mmol/L 07/14/2023 5:56 EDT [facility] Glucose 102(H) 70 - 99 mg/dl 07/14/2023 5:56 EDT [facility] Calcium 9.0 8.5 - 10.5 mg/dL 07/14/2023 5:56 EDT [facility] BUN 56(H) 10 - 26 mg/dL 07/14/2023 5:56 EDT [facility] Creatinine 2.50(H) 0.66 - 1.25 mg/dL 07/14/2023 5:56 T [facility] eGFR 27(L) >60 mL/min/1.73 m2 07/14/2023 5:56 EDT [facility] Blood VENOUS BLOOD / Unknown Venipuncture / Unknown 07/14/2023 5:29 EDT 07/14/2023 5:41 EDT Sandeep Breen MD CHEMISTRY & BLOOD GA S ORDERABLES Performing Organization Address City/State/[facility] Co de Phone Number [facility] [address] [place] [address] * (ABNORMAL) PHOSPHORUS (07/14/2023 5:29 EDT) Phosphorus 5.1(H) 2.5 - 4.5 mg/dL 07/14/2023 5:56 EDT [facility] Blood VENOUS BLOOD / Unknown Venipuncture / Unknown 07/14/2023 5:29 EDT 07/14/2023 5:41 EDT Khushi Young MD CHEMISTRY & BLOOD G ORDERABLES Performing Organization Address City/[facility]/ZIP Co de Phone Number [facility] [address] [place] [address] * MAGNESIUM (07/14/2023 5:29 EDT) Pathologist [facility] Magnesium 1.7 1.7 - 2.8 mg/dL 07/14/2023 5:56 EDT [facility] Blood VENOUS BLOOD / Unknown Venipuncture / Unknown 07/14/2023 5:29 EDT 07/14/2023 5:41 EDT Davian Murrell MD CHEMISTRY & BLOOD GA S ORDERABLES Performing Organization Address [facility] Co de Phone Number [facility] [address] [place] [address] * (ABNORMAL) ELECTROLYTES (07/13/2023 18:07 EDT) Pathologist [facility] Sodium 141 136 - 145 mmol/L 07/13/2023 18:50 EDT [facility] Potassium 3.9 3.5 - 5.0 mmol/L 07/13/2023 18:50 EDT [facility] Chloride 113(H) 96 - 110 mmol/L 07/13/2023 18:50 EDT [facility] CO2 Total 17(L) 22 - 32 mmol/L 07/13/2023 18:50 EDT [facility] Anion Gap 11 5 - 14 mmol/L 07/13/2023 18:50 EDT [facility] Blood VENOUS BLOOD / Unknown Venipuncture / Unknown 07/13/2023 18:07 EDT 07/13/2023 18:20 EDT Lisa Davis MD CHEMISTRY & BLOOD GAS ORDERABLES Performing Organization Address [facility]/ZIP Co de Phone Number [facility] [address] [place] [address] * (ABNORMAL) POCT GLUCOSE, INTERFACED (07/13/2023 12:18 EDT) Pathologist [facility] Glucose, POC 124(H) 70 - 100 mg/dL 07/13/2023 12:19 EDT [facility] HN LAB POC COMMENT (GLUCOSE) Test Performed by Nursing Services 07/13/2023 12:19 EDT [facility] Blood CAPILLARY BLOOD / Unknown 07/13/2023 12:18 EDT 07/13/2023 12:19 EDT Davian Murrell MD POINT OF CARE TEST O RDERABLES Performing Organization Address City/[facility]/ZIP Co de Phone Number [facility] [address] [place] [address] * HOLD SST (07/13/2023 7:03 EDT) [facility] Hold Hold 07/13/2023 8:15 EDT [facility] Blood VENOUS BLOOD / Unknown 07/13/2023 7:03 EDT 07/13/2023 7:03 EDT Araseli Finnegan MD LAB INFO SERVICE AND SUPPORT & PHONE RESULT Performing Organization Address City/[facility]/ZIP Co de Phone Number [facility] [address] [place] [address] * (ABNORMAL) BASIC METABOLIC PANEL (BMP) (07/13/2023 6:42 EDT) [facility] Sodium 148(H) 136 - 145 mmol/L 07/13/2023 7:34 EDT [facility] Potassium 4.4 3.5 - 5.0 mmol/L 07/13/2023 7:34 [facility] Chloride 117(H) 96 - 110 mmol/L 07/13/2023 7:34 [facility] CO2 Total 17(L) 22 - 32 mmol/L 07/13/2023 7:34 [facility] Anion Gap 14 5 - 14 mmol/L 07/13/2023 7:34 [facility] Glucose 122(H) 70 - 99 mg/dl 07/13/2023 7:34 EDT [facility] Calcium 9.2 8.5 - 10.5 mg/dL 07/13/2023 7:34 EDT [facility] BUN 69(H) 10 - 26 mg/dL 07/13/2023 7:34 EDT [facility] Creatinine 2.71(H) 0.66 - 1.25 mg/dL 07/13/2023 7:34 EDT [facility] eGFR 25(L) >60 mL/min/1.73 m2 07/13/2023 7:34 EDT [facility] Blood VENOUS BLOOD / Unknown Venipuncture / Unknown 07/13/2023 6:42 EDT 07/13/2023 6:57 EDT Sandeep Breen MD CHEMISTRY & BLOOD GA S ORDERABLES Performing Organization Address City/[facility]/ZIP Co de Phone Number [facility] [address], [place] [id number] * PHOSPHORUS (07/13/2023 6:42 EDT) Phosphorus 4.4 2.5 - 4.5 mg/dL 07/13/2023 7:34 EDT [facility] Blood VENOUS BLOOD / Unknown Venipuncture / Unknown 07/13/2023 6:42 EDT 07/13/2023 6:57 EDT Khushi Young MD CHEMISTRY & BLOOD G ORDERABLES [facility] [address] [place] [address] * MAGNESIUM (07/13/2023 6:42 EDT) Magnesium 1.9 1.7 - 2.8 mg/dL 07/13/2023 7:34 EDT [facility] Blood VENOUS BLOOD / Unknown Venipuncture / Unknown 07/13/2023 6:42 EDT 07/13/2023 6:57 EDT Davian Murrell MD CHEMISTRY & BLOOD GA S ORDERABLES Performing Organization Address [facility] Co de Phone Number [facility] [address] [place] [address] * (ABNORMAL) PROTIME (07/13/2023 6:42 EDT) Pathologist [facility] I.N.R. 1.3(H) 0.9 - 1.1 Ratio 07/13/2023 7:21 EDT [facility] Pro Time 14.1(H) 9.7 - 12.8 secs 07/13/2023 7:21 EDT [facility] Blood VENOUS BLOOD / Unknown Venipuncture / Unknown 07/13/2023 6:42 EDT 07/13/2023 6:58 EDT Narrative [facility] - 07/13/2023 7:21 EDT Moderate Intensity Coumadin INR = 2.0-3.0 Adjustments in anticoagulant therapy dose should be based on the INR and NOT on the Protime. Khushi Young MD HEMATOLOGY & PF4 OR DERABLES Performing Organization Address [facility] Co de Phone Number [facility] [address] [place] [id number] * (ABNORMAL) COMPLETE BLOOD COUNT (07/13/2023 6:40 EDT) WBC 13.73(H) 4.00 - 10.40 K/cmm 07/13/2023 7:15 EDT [facility] RBC 2.93(L) 4.36 - 5.78 M/cmm 07/13/2023 7:15 EDT [facility] Hemoglobin 7.8(L) 13.8 - 17.3 g/dL 07/13/2023 7:15 EDT [facility] HCT 25.4(L) 39.5 - 50.2 % 07/13/2023 7:15 EDT [facility] MCV 87 81 - 95 fL 07/13/2023 7:15 EDT [facility] MCH 26.6(L) 27.6 - 33.0 pg 07/13/2023 7:15 EDT [facility] MCHC 30.7(L) 32.8 - 36.4 g/dL 07/13/2023 7:15 [facility] RDW-CV 07/13/2023 7:15 [facility] Comment:Unreportable due to aberrant RBC size distribution RDW-SD 07/13/2023 7:15 T [facility] Comment:Unreportable due to aberrant RBC size distribution PLT 380(H) 141 - 377 K/cmm 07/13/2023 7:15 T [facility] MPV 07/13/2023 7:15 [facility] Comment:Not Available Blood VENOUS BLOOD / Unknown Venipuncture / Unknown 07/13/2023 6:40 EDT 07/13/2023 6:57 EDT Leonor Zamudio MD MPH HEMATOLOGY & PF4 ORD ERABLES [facility] [address] [place] [address] * (ABNORMAL) POCT GLUCOSE, INTERFACED (07/12/2023 15:42 EDT) Glucose, POC 108(H) 70 - 100 mg/dL 07/12/2023 15:43 EDT [facility] HN LAB POC COMMENT (GLUCOSE) Test Performed by Nursing Services 07/12/2023 15:43 EDT [facility] Blood CAPILLARY BLOOD / Unknown 07/12/2023 15:42 EDT 07/12/2023 15:43 EDT Davian Murrell MD POINT OF CARE TEST O RDERABLES [facility] [address] [place] [address] * (ABNORMAL) ELECTROLYTES (07/12/2023 15:34 EDT) [facility] Sodium 144 136 - 145 mmol/L 07/12/2023 15:56 EDT [facility] Potassium 3.7 3.5 - 5.0 mmol/L 07/12/2023 15:56 EDT [facility] Chloride 114(H) 96 - 110 mmol/L 07/12/2023 15:56 EDT [facility] CO2 Total 18(L) 22 - 32 mmol/L 07/12/2023 15:56 EDT [facility] Anion Gap 12 5 - 14 mmol/L 07/12/2023 15:56 EDT [facility] Blood BLOOD SAMPLE TAKEN FROM CENTRAL LINE / Unknown Venipuncture / Unknown 07/12/2023 15:34 EDT 07/12/2023 15:37 EDT Winston Gao MD CHEMISTRY & BLOOD GA S ORDERABLES [facility] [address], [place] [id number] * (ABNORMAL) POCT GLUCOSE, INTERFACED (07/12/2023 5:58 EDT) [facility] Glucose, POC 114(H) 70 - 100 mg/dL 07/12/2023 6:00 EDT [facility] HN LAB POC COMMENT (GLUCOSE) Test Performed by Nursing Services 07/12/2023 6:00 EDT [facility] Blood CAPILLARY BLOOD / Unknown 07/12/2023 5:58 EDT 07/12/2023 6:00 EDT Davian Murrell MD POINT OF CARE TEST O RDERABLES Performing Organization Address City/[facility]/ZIP Co de Phone Number [facility] [address], [place] [id number] * (ABNORMAL) BASIC METABOLIC PANEL (BMP) (07/12/2023 5:04 EDT) Sodium 147(H) 136 - 145 mmol/L 07/12/2023 5:56 EDT [facility] Potassium 3.4(L) 3.5 - 5.0 mmol/L 07/12/2023 5:56 [facility] Chloride 114(H) 96 - 110 mmol/L 07/12/2023 5:56 EDT [facility] CO2 Total 18(L) 22 - 32 mmol/L 07/12/2023 5:56 [facility] Anion Gap 15(H) 5 - 14 mmol/L 07/12/2023 5:56 [facility] Glucose 116(H) 70 - 99 mg/dl 07/12/2023 5:56 [facility] Calcium 9.0 8.5 - 10.5 mg/dL 07/12/2023 5:56 [facility] BUN 84(H) 10 - 26 mg/dL 07/12/2023 5:56 [facility] Creatinine 2.92(H) 0.66 - 1.25 mg/dL 07/12/2023 5:56 [facility] eGFR 23(L) >60 mL/min/1.73 m2 07/12/2023 5:56 [facility] Blood VENOUS BLOOD / Unknown Venipuncture / Unknown 07/12/2023 5:04 EDT 07/12/2023 5:21 EDT Sandeep Breen MD CHEMISTRY & BLOOD GA S ORDERABLES [facility] [address] [place] [address] * (ABNORMAL) COMPLETE BLOOD COUNT (07/12/2023 5:04 EDT) WBC 15.37(H) 4.00 - 10.40 K/cmm 07/12/2023 5:21 EDT [facility] RBC 2.79(L) 4.36 - 5.78 M/cmm 07/12/2023 5:21 EDT [facility] Hemoglobin 7.4(L) 13.8 - 17.3 g/dL 07/12/2023 5:21 T [facility] HCT 23.8(L) 39.5 - 50.2 % 07/12/2023 5:21 [facility] MCV 85 81 - 95 fL 07/12/2023 5:21 [facility] MCH 26.5(L) 27.6 - 33.0 pg 07/12/2023 5:21 T [facility] MCHC 31.1(L) 32.8 - 36.4 g/dL 07/12/2023 5:21 [facility] RDW-CV 34.1(H) <14.2 % 07/12/2023 5:21 [facility] RDW-SD 102.6(H) <46.0 fl 07/12/2023 5:21 [facility] PLT 356 141 - 377 K/cmm 07/12/2023 5:21 [facility] MPV 07/12/2023 5:21 [facility] Comment:Not Available Blood VENOUS BLOOD / Unknown Venipuncture / Unknown 07/12/2023 5:04 EDT 07/12/2023 5:10 EDT Leonor Zamudio MD MPH HEMATOLOGY & PF4 ORD ERABLES [facility] [address] [place] [address] * (ABNORMAL) PHOSPHORUS (07/12/2023 5:04 EDT) Phosphorus 4.9(H) 2.5 - 4.5 mg/dL 07/12/2023 5:56 EDT [facility] Blood VENOUS BLOOD / Unknown Venipuncture / Unknown 07/12/2023 5:04 EDT 07/12/2023 5:21 EDT Khushi Young MD CHEMISTRY & BLOOD G ORDERABLES [facility] [address] [place] [address] * MAGNESIUM (07/12/2023 5:04 EDT) Magnesium 1.9 1.7 - 2.8 mg/dL 07/12/2023 5:56 EDT [facility] Blood VENOUS BLOOD / Unknown Venipuncture / Unknown 07/12/2023 5:04 EDT 07/12/2023 5:21 EDT Davian Murrell MD CHEMISTRY & BLOOD GA S ORDERABLES Performing Organization Address [facility]/ZIP Co de Phone Number [facility] [address] [place] [address] * (ABNORMAL) PROTIME (07/12/2023 5:04 EDT) I.N.R. 1.2(H) 0.9 - 1.1 Ratio 07/12/2023 5:36 EDT [facility] Pro Time 13.9(H) 9.7 - 12.8 secs 07/12/2023 5:36 EDT [facility] Blood VENOUS BLOOD / Unknown Venipuncture / Unknown 07/12/2023 5:04 EDT 07/12/2023 5:13 EDT Narrative [facility] - 07/12/2023 5:36 EDT Moderate Intensity Coumadin INR = 2.0-3.0 Adjustments in anticoagulant therapy dose should be based on the INR and NOT on the Protime. Khushi Young MD HEMATOLOGY & PF4 OR DERABLES [facility] [address] [place] [address] * (ABNORMAL) POCT GLUCOSE, INTERFACED (07/12/2023 0:40 EDT) Glucose, POC 104(H) 70 - 100 mg/dL 07/12/2023 0:42 EDT [facility] HN LAB POC COMMENT (GLUCOSE) Test Performed by Nursing Services 07/12/2023 0:42 EDT [facility] Blood CAPILLARY BLOOD / Unknown 07/12/2023 0:40 EDT 07/12/2023 0:42 EDT Davian Murrell MD POINT OF CARE TEST O RDERABLES [facility] [address] [place] [address] * (ABNORMAL) ELECTROLYTES (07/11/2023 22:55 EDT) Sodium 153(H) 136 - 145 mmol/L 07/11/2023 23:23 EDT [facility] Potassium 3.5 3.5 - 5.0 mmol/L 07/11/2023 23:23 EDT [facility] Chloride 119(H) 96 - 110 mmol/L 07/11/2023 23:23 EDT [facility] CO2 Total 18(L) 22 - 32 mmol/L 07/11/2023 23:23 EDT [facility] Anion Gap 16(H) 5 - 14 mmol/L 07/11/2023 23:23 T [facility] Blood Venipuncture / Unknown 07/11/2023 22:55 EDT 07/11/2023 23:06 EDT Snehal Coffey MD CHEMISTRY & BLOOD GA S ORDERABLES Performing Organization Address City/[facility]/ZIP Co de Phone Number [facility] [address] [place] [address] * (ABNORMAL) ELECTROLYTES (07/11/2023 18:20 EDT) Sodium 154(H) 136 - 145 mmol/L 07/11/2023 19:09 EDT [facility] Potassium 3.8 3.5 - 5.0 mmol/L 07/11/2023 19:09 EDT [facility] Chloride 120(H) 96 - 110 mmol/L 07/11/2023 19:09 EDT [facility] CO2 Total 18(L) 22 - 32 mmol/L 07/11/2023 19:09 EDT [facility] Anion Gap 16(H) 5 - 14 mmol/L 07/11/2023 19:09 EDT [facility] Blood VENOUS BLOOD / Unknown Venipuncture / Unknown 07/11/2023 18:20 EDT 07/11/2023 18:40 EDT Snehal Coffey MD CHEMISTRY & BLOOD GA S ORDERABLES Performing Organization Address [facility]/ZIP Co de Phone Number [facility] [address] [place] [address] * (ABNORMAL) POCT GLUCOSE, INTERFACED (07/11/2023 18:02 EDT) Glucose, POC 122(H) 70 - 100 mg/dL 07/11/2023 18:04 EDT [facility] HN LAB POC COMMENT (GLUCOSE) Test Performed by Nursing Services 07/11/2023 18:04 EDT [facility] Blood CAPILLARY BLOOD / Unknown 07/11/2023 18:02 EDT 07/11/2023 18:04 EDT Dvaian Murrell MD POINT OF CARE TEST O RDERABLES [facility] [address] [place] [address] * (ABNORMAL) ELECTROLYTES (07/11/2023 13:45 EDT) Sodium 153(H) 136 - 145 mmol/L 07/11/2023 14:37 EDT [facility] Comment: Sample retested, result confirmed Potassium 3.5 3.5 - 5.0 mmol/L 07/11/2023 14:37 EDT [facility] Chloride 121(H) 96 - 110 mmol/L 07/11/2023 14:37 EDT [facility] Comment: Sample retested, result confirmed CO2 Total 18(L) 22 - 32 mmol/L 07/11/2023 14:37 EDT [facility] Anion Gap 14 5 - 14 mmol/L 07/11/2023 14:37 EDT [facility] Blood BLOOD SAMPLE TAKEN FROM CENTRAL LINE / Unknown Venipuncture / Unknown 07/11/2023 13:45 EDT 07/11/2023 13:56 EDT Lisa Davis MD CHEMISTRY & BLOOD GAS ORDERABLES Performing Organization Address [facility] Co de Phone Number [facility] [address], [place] [id number] * (ABNORMAL) POCT GLUCOSE, INTERFACED (07/11/2023 12:08 EDT) Glucose, POC 121(H) 70 - 100 mg/dL 07/11/2023 12:09 EDT [facility] HN LAB POC COMMENT (GLUCOSE) Test Performed by Nursing Services 07/11/2023 12:09 EDT [facility] Blood CAPILLARY BLOOD / Unknown 07/11/2023 12:08 EDT 07/11/2023 12:09 EDT Araseli Finnegan MD POINT OF CARE DONTRELL T ORDERABLES Performing Organization Address [facility]/ZIP Co de Phone Number [facility] [address] [place] [address] * (ABNORMAL) ELECTROLYTES (07/11/2023 11:08 EDT) Sodium 133(L) 136 - 145 mmol/L 07/11/2023 14:26 EDT [facility] Comment: Question specimen contaminated. Potassium 3.0(L) 3.5 - 5.0 mmol/L 07/11/2023 14:26 EDT [facility] Comment:Question specimen co ntaminated. Chloride 102 96 - 110 mmol/L 07/11/2023 14:26 EDT [facility] Comment:Question specimen co ntaminated. CO2 Total 15(L) 22 - 32 mmol/L 07/11/2023 14:26 EDT [facility] Comment:Question specimen co ntaminated. Anion Gap 16(H) 5 - 14 mmol/L 07/11/2023 14:26 EDT [facility] Comment:Question specimen co ntaminated. Blood VENOUS BLOOD / Unknown Venipuncture / Unknown 07/11/2023 11:08 EDT 07/11/2023 12:04 EDT Snehal Coffey MD CHEMISTRY & BLOOD GA S ORDERABLES Performing Organization Address City/[facility]/ZIP Co de Phone Number [facility] [address] [place] [address] * OSMOLALITY, URINE (07/11/2023 11:08 EDT) Osmolality, Urine 424 150 - 1,150 mOsm/kg 07/11/2023 12:13 EDT [facility] Urine URINE SPECIMEN COLLECTION, CATHETERIZED / Unknown Urine Collect / Unknown 07/11/2023 11:08 EDT 07/11/2023 11:58 EDT Snehal Coffey MD URINALYSIS ORDERABLE S [facility] [address], [place] [id number] * SODIUM, URINE RANDOM (07/11/2023 11:08 EDT) Sodium, Urine 62.2 See Note mmol/L 07/11/2023 12:17 EDT [facility] Comment: NOTE: Reference range has not been established for sodium concentration in random urine specimens. Urine URINE SPECIMEN COLLECTION, CATHETERIZED / Unknown Urine Collect / Unknown 07/11/2023 11:08 EDT 07/11/2023 11:58 EDT Snehal Coffey MD URINALYSIS ORDERABLE S Performing Organization Address City/[facility]/ZIP Co de Phone Number [facility] [address] [place] [address] * (ABNORMAL) POCT GLUCOSE, INTERFACED (07/11/2023 10:05 EDT) Glucose, POC 112(H) 70 - 100 mg/dL 07/11/2023 10:06 EDT [facility] HN LAB POC COMMENT (GLUCOSE) Test Performed by Nursing Services 07/11/2023 10:06 EDT [facility] Blood CAPILLARY BLOOD / Unknown 07/11/2023 10:05 EDT 07/11/2023 10:06 EDT Davian Murrell MD POINT OF CARE TEST Keeley ESTRADA Performing Organization Address [facility] Co de Phone Number [facility] [address] [place] [address] * POCT GLUCOSE, INTERFACED (07/11/2023 5:56 EDT) Glucose, POC 89 70 - 100 mg/dL 07/11/2023 5:57 EDT [facility] HN LAB POC COMMENT (GLUCOSE) Test Performed by Nursing Services 07/11/2023 5:57 EDT [facility] Blood CAPILLARY BLOOD / Unknown 07/11/2023 5:56 EDT 07/11/2023 5:57 EDT Davian Murrell MD POINT OF CARE TEST O SEAN Performing Organization Address [facility]/ZIP Co de Phone Number [facility] [address] [place] [address] * (ABNORMAL) OSMOLALITY (07/11/2023 4:27 EDT) Osmolality, Serum 351(H) 275 - 295 mOsm/kg 07/11/2023 8:35 EDT [facility] Blood VENOUS BLOOD / Unknown Venipuncture / Unknown 07/11/2023 4:27 EDT 07/11/2023 4:31 EDT Snehal Coffey MD CHEMISTRY & BLOOD GA S ORDERABLES [facility] [address] [place] [address] * (ABNORMAL) BASIC METABOLIC PANEL (BMP) (07/11/2023 4:27 EDT) Sodium 157(HH) 136 - 145 mmol/L 07/11/2023 5:07 [facility] Potassium 2.8(LL) 3.5 - 5.0 mmol/L 07/11/2023 5:07 [facility] Chloride 121(H) 96 - 110 mmol/L 07/11/2023 5:07 [facility] CO2 Total 19(L) 22 - 32 mmol/L 07/11/2023 5:07 [facility] Anion Gap 17(H) 5 - 14 mmol/L 07/11/2023 5:07 [facility] Glucose 97 70 - 99 mg/dl 07/11/2023 5:07 [facility] Calcium 9.4 8.5 - 10.5 mg/dL 07/11/2023 5:07 [facility] BUN 96(H) 10 - 26 mg/dL 07/11/2023 5:07 [facility] Creatinine 3.26(H) 0.66 - 1.25 mg/dL 07/11/2023 5:07 [facility] eGFR 20(L) >60 mL/min/1.73 m2 07/11/2023 5:07 [facility] Blood VENOUS BLOOD / Unknown Venipuncture / Unknown 07/11/2023 4:27 EDT 07/11/2023 4:31 EDT Sandeep Breen MD CHEMISTRY & BLOOD GA S ORDERABLES [facility] [address], [place] [phone] * (ABNORMAL) COMPLETE BLOOD COUNT (07/11/2023 4:27 EDT) WBC 18.62(H) 4.00 - 10.40 K/cmm 07/11/2023 4:44 EDT [facility] RBC 3.02(L) 4.36 - 5.78 M/cmm 07/11/2023 4:44 EDT [facility] Hemoglobin 7.9(L) 13.8 - 17.3 g/dL 07/11/2023 4:44 EDT [facility] HCT 25.0(L) 39.5 - 50.2 % 07/11/2023 4:44 EDT [facility] MCV 83 81 - 95 fL 07/11/2023 4:44 EDT [facility] MCH 26.2(L) 27.6 - 33.0 pg 07/11/2023 4:44 EDT [facility] MCHC 31.6(L) 32.8 - 36.4 g/dL 07/11/2023 4:44 T [facility] RDW-CV 32.5(H) <14.2 % 07/11/2023 4:44 EDT [facility] RDW-SD 77.9(H) <46.0 fl 07/11/2023 4:44 EDT [facility] PLT 380(H) 141 - 377 K/cmm 07/11/2023 4:44 T [facility] MPV 11.5 9.5 - 12.7 fL 07/11/2023 4:44 [facility] Blood VENOUS BLOOD / Unknown Venipuncture / Unknown 07/11/2023 4:27 EDT 07/11/2023 4:31 EDT Leonor Zamudio MD MPH HEMATOLOGY & PF4 ORD ERABLES [facility] [address] [place] [address] * (ABNORMAL) PHOSPHORUS (07/11/2023 4:27 EDT) Phosphorus 5.4(H) 2.5 - 4.5 mg/dL 07/11/2023 5:02 EDT [facility] Blood VENOUS BLOOD / Unknown Venipuncture / Unknown 07/11/2023 4:27 EDT 07/11/2023 4:31 EDT Khushi Young MD CHEMISTRY & BLOOD G ORDERABLES Performing Organization Address [facility] Co de Phone Number [facility] [address] [place] [address] * MAGNESIUM (07/11/2023 4:27 EDT) Pathologist [facility] Magnesium 2.1 1.7 - 2.8 mg/dL 07/11/2023 5:02 EDT [facility] Blood VENOUS BLOOD / Unknown Venipuncture / Unknown 07/11/2023 4:27 EDT 07/11/2023 4:31 EDT Davian Murrell MD CHEMISTRY & BLOOD GA S ORDERABLES Performing Organization Address [facility] Co de Phone Number [facility] [address] [place] [address] * (ABNORMAL) PROTIME (07/11/2023 4:27 EDT) I.N.R. 1.3(H) 0.9 - 1.1 Ratio 07/11/2023 4:52 EDT [facility] Pro Time 15.1(H) 9.7 - 12.8 secs 07/11/2023 4:52 EDT [facility] Blood VENOUS BLOOD / Unknown Venipuncture / Unknown 07/11/2023 4:27 EDT 07/11/2023 4:33 EDT Narrative [facility] - 07/11/2023 4:52 EDT Moderate Intensity Coumadin INR = 2.0-3.0 Adjustments in anticoagulant therapy dose should be based on the INR and NOT on the Protime. Khushi Young MD HEMATOLOGY & PF4 OR DERABLES Performing Organization Address [facility] Co de Phone Number [facility] [address] [place] [address] * (ABNORMAL) POCT GLUCOSE, INTERFACED (07/11/2023 0:16 EDT) Glucose, POC 128(H) 70 - 100 mg/dL 07/11/2023 0:18 EDT [facility] HN LAB POC COMMENT (GLUCOSE) Test Performed by Nursing Services 07/11/2023 0:18 EDT [facility] Blood CAPILLARY BLOOD / Unknown 07/11/2023 0:16 EDT 07/11/2023 0:18 EDT Davian Murrell MD POINT OF CARE TEST O RDERABLES Performing Organization Address [facility] Co de Phone Number [facility] [address], [place] [phone] * (ABNORMAL) COMPLETE BLOOD COUNT (07/10/2023 21:56 EDT) WBC 19.80(H) 4.00 - 10.40 K/cmm 07/10/2023 22:11 EDT [facility] RBC 3.18(L) 4.36 - 5.78 M/cmm 07/10/2023 22:11 [facility] Hemoglobin 8.3(L) 13.8 - 17.3 g/dL 07/10/2023 22:11 EDT [facility] HCT 25.6(L) 39.5 - 50.2 % 07/10/2023 22:11 EDT [facility] MCV 81 81 - 95 fL 07/10/2023 22:11 EDT [facility] MCH 26.1(L) 27.6 - 33.0 pg 07/10/2023 22:11 EDT [facility] MCHC 32.4(L) 32.8 - 36.4 g/dL 07/10/2023 22:11 EDT [facility] RDW-CV 32.0(H) <14.2 % 07/10/2023 22:11 T [facility] RDW-SD 74.4(H) <46.0 fl 07/10/2023 22:11 EDT [facility] PLT 402(H) 141 - 377 K/cmm 07/10/2023 22:11 T [facility] MPV 11.7 9.5 - 12.7 fL 07/10/2023 22:11 EDT [facility] Blood VENOUS BLOOD / Unknown Venipuncture / Unknown 07/10/2023 21:56 EDT 07/10/2023 22:00 EDT Carmella Douglass DO HEMATOLOGY & PF4 O RDERABLES [facility] [address] [place] [address] * XR FEEDING TUBE PLACEMENT (07/10/2023 20:45 EDT) Anatomical Region Laterality Modality Abdomen Computed Radiogr aphy 07/10/2023 20:5 5 EDT Impressions 07/10/2023 20:55 EDT Findings/Impression: Portable AP view centered over the lower chest upper abdomen demonstrates that the feeding tube tip projects over the gastric fundus. This is neither a complete view of the chest nor of the abdomen. ??If either view is needed, formal films are recommended. [id number] Narrative 07/10/2023 20:55 EDT XR FEEDING TUBE PLACEMENT ??07/10/2023 8:30 PM Signs and Symptoms/Comments: s/p advancement; Comparison: June 30, 2023 Resulting Agency Comment [id number] Procedure Note Neftaly Hernández MD - 07/10/2023 XR FEEDING TUBE PLACEMENT 07/10/2023 8:30 PM Signs and Symptoms/Comments: s/p advancement; Comparison: June 30, 2023 IMPRESSION Findings/Impression: Portable AP view centered over the lower chest upper abdomen demonstratesthat the feeding tube tip projects over the gastric fundus. This is neither a complete view of the chest nor of the abdomen. Ifeither view is needed, formal films are recommended. [id number] Carmella Douglass DO IMG DIAGNOSTIC SHANA GING ORDERABLES * (ABNORMAL) POCT GLUCOSE, INTERFACED (07/10/2023 19:26 EDT) Glucose, POC 119(H) 70 - 100 mg/dL 07/10/2023 19:27 EDT [facility] HN LAB POC COMMENT (GLUCOSE) Test Performed by Nursing Services 07/10/2023 19:27 [facility] Blood CAPILLARY BLOOD / Unknown 07/10/2023 19:26 EDT 07/10/2023 19:27 EDT Davian Murrell MD POINT OF CARE TEST O RDERABLES [facility] [address] [place] [id number] * (ABNORMAL) ELECTROLYTES (07/10/2023 17:53 EDT) Sodium 160(HH) 136 - 145 mmol/L 07/10/2023 19:03 T [facility] Comment:Sample retested, res ult confirmed Potassium 4.0 3.5 - 5.0 mmol/L 07/10/2023 19:03 [facility] Chloride 119(H) 96 - 110 mmol/L 07/10/2023 19:03 [facility] CO2 Total 19(L) 22 - 32 mmol/L 07/10/2023 19:03 [facility] Anion Gap 22(H) 5 - 14 mmol/L 07/10/2023 19:03 [facility] Blood BLOOD SAMPLE TAKEN FROM CENTRAL LINE / Unknown Venipuncture / Unknown 07/10/2023 17:53 EDT 07/10/2023 18:09 EDT Snehal Coffey MD CHEMISTRY & BLOOD GA S ORDERABLES Performing Organization Address [facility] Co de Phone Number [facility] [address] [place] [address] * (ABNORMAL) POCT GLUCOSE, INTERFACED (07/10/2023 13:28 EDT) Glucose, POC 127(H) 70 - 100 mg/dL 07/10/2023 13:30 EDT [facility] HN LAB POC COMMENT (GLUCOSE) Test Performed by Nursing Services 07/10/2023 13:30 EDT [facility] Blood CAPILLARY BLOOD / Unknown 07/10/2023 13:28 EDT 07/10/2023 13:30 EDT Davian Murrell MD POINT OF CARE TEST O RDERABLES Performing Organization Address [facility] Co de Phone Number [facility] [address] [place] [address] * C. DIFFICILE PCR (07/10/2023 12:05 EDT) C. difficile PCR Negative Negative 07/10/2023 17:16 EDT [facility] Feces SPECIMEN FROM RECTUM / Unknown Stool Collect / Unknown 07/10/2023 12:05 EDT 07/10/2023 13:25 EDT Snehal Coffey MD MICROBIOLOGY - GENER AL ORDERABLES Performing Organization Address City/[facility]/ZIP Co de Phone Number [facility] [address] [place] [address] * XR CHEST PORTABLE 1 VIEW (07/10/2023 11:58 EDT) Anatomical Region Laterality Modality Computed Radiogr aphy 07/10/2023 14:2 5 EDT Impressions 07/10/2023 14:25 EDT The Dobbhoff tube has been pulled back, into the midesophagus slightly inferior to the level of the sidra. The above findings were discussed with Dr. Snehal Coffey. [id number] Narrative 07/10/2023 14:25 EDT XR CHEST PORTABLE 1 VIEW ??07/10/2023 11:53 AM Clinical History/comments: audible course breath sounds and leukcytosis; Comparison: July 06, 2023. Technique: Single portable AP view of the chest. Findings: Lines/tubes/devices: ??The Dobbhoff tube is pulled back into the mid esophagus. There is a left IJ catheter with the tip in the proximal SVC. There is a PICC line on the right, with the tip in the vicinity of the cavoatrial junction. Lungs: Patient is rotated. When compared the prior examination there is no change in the appearance of the lungs. There is atelectasis of the right lower lobe.. Pleura: No visible pleural abnormalities. Cardiac and mediastinal contours: Cardiac contour is top normal. Superior sternal contour is unchanged.. Soft tissues and extrathoracic findings: ??Normal. Bones: Patient is status post left shoulder arthroplasty. Resulting Agency Comment [id number] Procedure Note Gina Stratton MD - 07/10/2023 XR CHEST PORTABLE 1 VIEW 07/10/2023 11:53 AM Clinical History/comments: audible course breath sounds and leukcytosis; Comparison: July 06, 2023. Technique: Single portable AP view of the chest. Findings: Lines/tubes/devices: The Dobbhoff tube is pulled back into the midesophagus. There is a left IJ catheter with the tip in the proximal SVC.There is a PICC line on the right, with the tip in the vicinity of thecavoatrial junction. Lungs: Patient is rotated. When compared the prior examination there is nochange in the appearance of the lungs. There is atelectasis of the rightlower lobe.. Pleura: No visible pleural abnormalities. Cardiac and mediastinal contours: Cardiac contour is top normal. Superiorsternal contour is unchanged.. Soft tissues and extrathoracic findings: Normal. Bones: Patient is status post left shoulder arthroplasty. IMPRESSION The Dobbhoff tube has been pulled back, into the midesophagus slightlyinferior to the level of the sidra. The above findings were discussed with Dr. Snehal Coffey. [id number] Snehal Coffey MD IMG DIAGNOSTIC IMAGI NG ORDERABLES * (ABNORMAL) BASIC METABOLIC PANEL (BMP) (07/10/2023 5:17 EDT) Sodium 152(H) 136 - 145 mmol/L 07/10/2023 8:59 EDT [facility] Potassium 3.3(L) 3.5 - 5.0 mmol/L 07/10/2023 8:59 EDT [facility] Chloride 113(H) 96 - 110 mmol/L 07/10/2023 8:59 EDT [facility] CO2 Total 19(L) 22 - 32 mmol/L 07/10/2023 8:59 [facility] Anion Gap 20(H) 5 - 14 mmol/L 07/10/2023 8:59 T [facility] Glucose 160(H) 70 - 99 mg/dl 07/10/2023 8:59 [facility] Calcium 9.9 8.5 - 10.5 mg/dL 07/10/2023 8:59 [facility] BUN 99(H) 10 - 26 mg/dL 07/10/2023 8:59 [facility] Creatinine 3.31(H) 0.66 - 1.25 mg/dL 07/10/2023 8:59 [facility] eGFR 19(L) >60 mL/min/1.73 m2 07/10/2023 8:59 [facility] Blood VENOUS BLOOD / Unknown Venipuncture / Unknown 07/10/2023 5:17 EDT 07/10/2023 5:34 EDT Sandeep Breen MD CHEMISTRY & BLOOD GA S ORDERABLES [facility] [address] [place] [address] * SLIDE REQUEST (07/10/2023 5:17 EDT) Note A smear is filed in the Hematology lab. 07/10/2023 6:07 EDT [facility] Blood VENOUS BLOOD / Unknown Venipuncture / Unknown 07/10/2023 5:17 EDT 07/10/2023 5:24 EDT Leonor Zamudio MD MPH HEMATOLOGY & PF4 ORD ERABLES [facility] [address] [place] [address] * (ABNORMAL) COMPLETE BLOOD COUNT (07/10/2023 5:17 EDT) WBC 21.28(H) 4.00 - 10.40 K/cmm 07/10/2023 5:38 [facility] RBC 3.37(L) 4.36 - 5.78 M/cmm 07/10/2023 5:38 [facility] Hemoglobin 8.7(L) 13.8 - 17.3 g/dL 07/10/2023 5:38 [facility] HCT 27.5(L) 39.5 - 50.2 % 07/10/2023 5:38 [facility] MCV 82 81 - 95 fL 07/10/2023 5:38 [facility] MCH 25.8(L) 27.6 - 33.0 pg 07/10/2023 5:38 [facility] Hypochromia 1+ 07/10/2023 5:38 [facility] MCHC 31.6(L) 32.8 - 36.4 g/dL 07/10/2023 5:38 [facility] RDW-CV 30.6(H) <14.2 % 07/10/2023 5:38 [facility] RDW-SD 74.4(H) <46.0 fl 07/10/2023 5:38 EDT [facility] Anisocytosis 3+ 07/10/2023 5:38 EDT [facility] PLT 410(H) 141 - 377 K/cmm 07/10/2023 5:38 EDT [facility] MPV 12.0 9.5 - 12.7 fL 07/10/2023 5:38 EDT [facility] Blood VENOUS BLOOD / Unknown Venipuncture / Unknown 07/10/2023 5:17 EDT 07/10/2023 5:24 EDT Leonor Zamudio MD MPH HEMATOLOGY & PF4 ORD ERABLES Performing Organization Address City/[facility]/ZIP Co de Phone Number [facility] [address] [place] [address] * (ABNORMAL) PHOSPHORUS (07/10/2023 5:17 EDT) Phosphorus 6.2(H) 2.5 - 4.5 mg/dL 07/10/2023 6:05 EDT [facility] Blood VENOUS BLOOD / Unknown Venipuncture / Unknown 07/10/2023 5:17 EDT 07/10/2023 5:34 EDT Khushi Young MD CHEMISTRY & BLOOD G ORDERABLES Performing Organization Address City/[facility]/ZIP Co de Phone Number [facility] [address] [place] [address] * (ABNORMAL) POCT GLUCOSE, INTERFACED (07/10/2023 5:17 EDT) Glucose, POC 174(H) 70 - 100 mg/dL 07/10/2023 5:18 EDT [facility] HN LAB POC COMMENT (GLUCOSE) Test Performed by Nursing Services 07/10/2023 5:18 EDT [facility] Blood CAPILLARY BLOOD / Unknown 07/10/2023 5:17 EDT 07/10/2023 5:18 EDT Davian Murrell MD POINT OF CARE TEST O RDERABLES Performing Organization Address City/[facility]/ZIP Co de Phone Number [facility] [address], [place] [id number] * MAGNESIUM (07/10/2023 5:17 EDT) Magnesium 2.3 1.7 - 2.8 mg/dL 07/10/2023 6:05 EDT [facility] Blood VENOUS BLOOD / Unknown Venipuncture / Unknown 07/10/2023 5:17 EDT 07/10/2023 5:34 EDT Davian Murrell MD CHEMISTRY & BLOOD GA S ORDERABLES Performing Organization Address [facility] Co de Phone Number [facility] [address] [place] [address] * (ABNORMAL) PROTIME (07/10/2023 5:17 EDT) I.N.R. 1.3(H) 0.9 - 1.1 Ratio 07/10/2023 5:48 EDT [facility] Pro Time 14.6(H) 9.7 - 12.8 secs 07/10/2023 5:48 EDT [facility] Blood VENOUS BLOOD / Unknown Venipuncture / Unknown 07/10/2023 5:17 EDT 07/10/2023 5:25 EDT Narrative [facility] - 07/10/2023 5:48 EDT Moderate Intensity Coumadin INR = 2.0-3.0 Adjustments in anticoagulant therapy dose should be based on the INR and NOT on the Protime. Khushi Young MD HEMATOLOGY & PF4 OR DERABLES Performing Organization Address City/[facility]/ZIP Co de Phone Number [facility] [address] [place] [address] * (ABNORMAL) POCT GLUCOSE, INTERFACED (07/09/2023 23:48 EDT) Glucose, POC 132(H) 70 - 100 mg/dL 07/09/2023 23:50 EDT [facility] HN LAB POC COMMENT (GLUCOSE) Test Performed by Nursing Services 07/09/2023 23:50 EDT [facility] Blood CAPILLARY BLOOD / Unknown 07/09/2023 23:48 EDT 07/09/2023 23:50 EDT Davian Murrell MD POINT OF CARE TEST O RDERABLES [facility] [address] [place] [address] * (ABNORMAL) POCT GLUCOSE, INTERFACED (07/09/2023 18:24 EDT) Glucose, POC 132(H) 70 - 100 mg/dL 07/09/2023 18:26 EDT [facility] HN LAB POC COMMENT (GLUCOSE) Test Performed by Nursing Services 07/09/2023 18:26 EDT [facility] Blood CAPILLARY BLOOD / Unknown 07/09/2023 18:24 EDT 07/09/2023 18:26 EDT Davian Murrell MD POINT OF CARE TEST O SEAN [facility] [address] [place] [address] * (ABNORMAL) POCT GLUCOSE, INTERFACED (07/09/2023 13:49 EDT) Glucose, POC 121(H) 70 - 100 mg/dL 07/09/2023 13:50 EDT [facility] HN LAB POC COMMENT (GLUCOSE) Test Performed by Nursing Services 07/09/2023 13:50 EDT [facility] Blood CAPILLARY BLOOD / Unknown 07/09/2023 13:49 EDT 07/09/2023 13:50 EDT Araseli Finnegan MD POINT OF CARE DONTRELL T ORDERABLES Performing Organization Address [facility] Co de Phone Number [facility] [address] [place] [address] * (ABNORMAL) POCT GLUCOSE, INTERFACED (07/09/2023 12:25 EDT) Glucose, POC 127(H) 70 - 100 mg/dL 07/09/2023 13:48 EDT [facility] HN LAB POC COMMENT (GLUCOSE) Test Performed by Nursing Services 07/09/2023 13:48 EDT [facility] Blood CAPILLARY BLOOD / Unknown 07/09/2023 12:25 EDT 07/09/2023 13:48 EDT Davian uMrrell MD POINT OF CARE TEST O WAYNEERAMARIO Performing Organization Address [facility] Co de Phone Number [facility] [address], [place] [id number] * ECG REPORT - SCANNED (07/09/2023 6:51 EDT) 07/09/2023 6:51 EDT Scan 2 Tank Welder PROCEDURE/MINOR MILKA GICAL ORDERABLES * (ABNORMAL) POCT GLUCOSE, INTERFACED (07/09/2023 6:06 EDT) Glucose, POC 154(H) 70 - 100 mg/dL 07/09/2023 6:08 EDT [facility] HN LAB POC COMMENT (GLUCOSE) Test Performed by Nursing Services 07/09/2023 6:08 EDT [facility] Blood CAPILLARY BLOOD / Unknown 07/09/2023 6:06 EDT 07/09/2023 6:08 EDT Davian Murrell MD POINT OF CARE TEST O RDERABLES [facility] [address] [place] [address] * (ABNORMAL) BASIC METABOLIC PANEL (BMP) (07/09/2023 5:23 EDT) Sodium 147(H) 136 - 145 mmol/L 07/09/2023 11:50 T [facility] Potassium 3.9 3.5 - 5.0 mmol/L 07/09/2023 11:50 [facility] Chloride 109 96 - 110 mmol/L 07/09/2023 11:50 [facility] CO2 Total 20(L) 22 - 32 mmol/L 07/09/2023 11:50 [facility] Anion Gap 18(H) 5 - 14 mmol/L 07/09/2023 11:50 [facility] Glucose 144(H) 70 - 99 mg/dl 07/09/2023 11:50 [facility] Calcium 9.5 8.5 - 10.5 mg/dL 07/09/2023 11:50 [facility] BUN 96(H) 10 - 26 mg/dL 07/09/2023 11:50 [facility] Creatinine 3.34(H) 0.66 - 1.25 mg/dL 07/09/2023 11:50 [facility] eGFR 19(L) >60 mL/min/1.73 m2 07/09/2023 11:50 [facility] Blood VENOUS BLOOD / Unknown PICC Line Draw / Unknown 07/09/2023 5:23 EDT 07/09/2023 5:28 EDT Sandeep Breen MD CHEMISTRY & BLOOD GA S ORDERABLES Performing Organization Address City/[facility]/ZIP Co de Phone Number [facility] [address], [place] [phone] * SLIDE REQUEST (07/09/2023 5:23 EDT) Note A smear is filed in the Hematology lab. 07/09/2023 5:57 [facility] Blood VENOUS BLOOD / Unknown PICC Line Draw / Unknown 07/09/2023 5:23 EDT 07/09/2023 5:28 EDT Leonor Zamudio MD MPH HEMATOLOGY & PF4 ORD ERABLES [facility] [address] [place] [address] * (ABNORMAL) COMPLETE BLOOD COUNT (07/09/2023 5:23 EDT) WBC 21.77(H) 4.00 - 10.40 K/cmm 07/09/2023 5:41 [facility] RBC 3.03(L) 4.36 - 5.78 M/cmm 07/09/2023 5:41 [facility] Hemoglobin 7.7(L) 13.8 - 17.3 g/dL 07/09/2023 5:41 [facility] HCT 23.5(L) 39.5 - 50.2 % 07/09/2023 5:41 [facility] MCV 78(L) 81 - 95 fL 07/09/2023 5:41 [facility] MCH 25.4(L) 27.6 - 33.0 pg 07/09/2023 5:41 [facility] Hypochromia 1+ 07/09/2023 5:41 [facility] MCHC 32.8 32.8 - 36.4 g/dL 07/09/2023 5:41 [facility] RDW-CV 28.3(H) <14.2 % 07/09/2023 5:41 [facility] RDW-SD 67.7(H) <46.0 fl 07/09/2023 5:41 [facility] Anisocytosis 3+ 07/09/2023 5:41 [facility] PLT 353 141 - 377 K/cmm 07/09/2023 5:41 EDT [facility] MPV 07/09/2023 5:41 EDT [facility] Comment:Not Available Blood VENOUS BLOOD / Unknown PICC Line Draw / Unknown 07/09/2023 5:23 EDT 07/09/2023 5:28 EDT Leonor Zamudio MD MPH HEMATOLOGY & PF4 ORD ERABLES Performing Organization Address City/[facility] Co de Phone Number [facility] [address] [place] [address] * (ABNORMAL) PHOSPHORUS (07/09/2023 5:23 EDT) Phosphorus 5.2(H) 2.5 - 4.5 mg/dL 07/09/2023 5:58 EDT [facility] Blood VENOUS BLOOD / Unknown PICC Line Draw / Unknown 07/09/2023 5:23 EDT 07/09/2023 5:28 EDT Khushi Young MD CHEMISTRY & BLOOD G ORDERABLES Performing Organization Address [facility] de Phone Number [facility] [address] [place] [address] * MAGNESIUM (07/09/2023 5:23 EDT) Magnesium 2.5 1.7 - 2.8 mg/dL 07/09/2023 5:58 EDT [facility] Blood VENOUS BLOOD / Unknown PICC Line Draw / Unknown 07/09/2023 5:23 EDT 07/09/2023 5:28 EDT Davian Murrell MD CHEMISTRY & BLOOD GA S ORDERABLES Performing Organization Address [facility] de Phone Number [facility] [address] [place] [address] * (ABNORMAL) PROTIME (07/09/2023 5:23 EDT) I.N.R. 1.3(H) 0.9 - 1.1 Ratio 07/09/2023 5:50 EDT [facility] Pro Time 15.1(H) 9.7 - 12.8 secs 07/09/2023 5:50 EDT [facility] Blood VENOUS BLOOD / Unknown PICC Line Draw / Unknown 07/09/2023 5:23 EDT 07/09/2023 5:28 EDT Narrative [facility] - 07/09/2023 5:50 EDT Moderate Intensity Coumadin INR = 2.0-3.0 Adjustments in anticoagulant therapy dose should be based on the INR and NOT on the Protime. Khushi Young MD HEMATOLOGY & PF4 OR DERABLES Performing Organization Address City/[facility]/ZIP Co de Phone Number [facility] [address] [place] [address] * (ABNORMAL) POCT GLUCOSE, INTERFACED (07/08/2023 23:26 EDT) Pathologist [facility] Glucose, POC 126(H) 70 - 100 mg/dL 07/08/2023 23:27 EDT [facility] HN LAB POC COMMENT (GLUCOSE) Test Performed by Nursing Services 07/08/2023 23:27 EDT [facility] Blood CAPILLARY BLOOD / Unknown 07/08/2023 23:26 EDT 07/08/2023 23:27 EDT Davian Murrell MD POINT OF CARE TEST O RDERABLES Performing Organization Address City/[facility]/ZIP Co de Phone Number [facility] [address] [place] [address] * LACTIC ACID (07/08/2023 21:00 EDT) Lactic Acid 1.5 <=2.0 mmol/L 07/08/2023 21:27 EDT [facility] Blood VENOUS BLOOD / Unknown PICC Line Draw / Unknown 07/08/2023 21:00 EDT 07/08/2023 21:09 EDT Cande Stover MD CHEMISTRY & BLOOD GA S ORDERABLES Performing Organization Address [facility]/ZIP Co de Phone Number [facility] [address] [place] [address] * (ABNORMAL) POCT GLUCOSE, INTERFACED (07/08/2023 18:34 EDT) Glucose, POC 152(H) 70 - 100 mg/dL 07/08/2023 18:35 EDT [facility] HN LAB POC COMMENT (GLUCOSE) Test Performed by Nursing Services 07/08/2023 18:35 EDT [facility] Blood CAPILLARY BLOOD / Unknown 07/08/2023 18:34 EDT 07/08/2023 18:35 EDT Davian Murrell MD POINT OF CARE TEST O RDERABLES Performing Organization Address [facility] Co de Phone Number [facility] [address] [place] [address] * (ABNORMAL) ELECTROLYTES (07/08/2023 17:16 EDT) Sodium 148(H) 136 - 145 mmol/L 07/08/2023 17:53 EDT [facility] Potassium 3.0(L) 3.5 - 5.0 mmol/L 07/08/2023 17:53 EDT [facility] Chloride 108 96 - 110 mmol/L 07/08/2023 17:53 EDT [facility] CO2 Total 24 22 - 32 mmol/L 07/08/2023 17:53 EDT [facility] Anion Gap 16(H) 5 - 14 mmol/L 07/08/2023 17:53 EDT [facility] Blood BLOOD SAMPLE TAKEN FROM CENTRAL LINE / Unknown PICC Line Draw / Unknown 07/08/2023 17:16 EDT 07/08/2023 17:36 EDT Denisse Drake MD CHEMISTRY & BLOOD GA S ORDERABLES Performing Organization Address [facility]/ZIP Co de Phone Number [facility] [address] [place] [address] * (ABNORMAL) POCT GLUCOSE, INTERFACED (07/08/2023 14:21 EDT) Glucose, POC 123(H) 70 - 100 mg/dL 07/08/2023 14:22 EDT [facility] HN LAB POC COMMENT (GLUCOSE) Test Performed by Nursing Services 07/08/2023 14:22 EDT [facility] Blood CAPILLARY BLOOD / Unknown 07/08/2023 14:21 EDT 07/08/2023 14:22 EDT Davian Murrell MD POINT OF CARE TEST O RDERABLES Performing Organization Address [facility]/ZIP Co de Phone Number [facility] [address] [place] [address] * (ABNORMAL) LACTIC ACID (07/08/2023 11:46 EDT) Lactic Acid 2.6(HH) <=2.0 mmol/L 07/08/2023 12:11 EDT [facility] Blood BLOOD SAMPLE TAKEN FROM CENTRAL LINE / Unknown PICC Line Draw / Unknown 07/08/2023 11:46 EDT 07/08/2023 11:58 EDT Cande Stover MD CHEMISTRY & BLOOD GA S ORDERABLES Performing Organization Address City/[facility]/ZIP Co de Phone Number [facility] [address] [place] [address] * (ABNORMAL) POCT GLUCOSE, INTERFACED (07/08/2023 6:48 EDT) Glucose, POC 117(H) 70 - 100 mg/dL 07/08/2023 6:49 EDT [facility] HN LAB POC COMMENT (GLUCOSE) Test Performed by Nursing Services 07/08/2023 6:49 EDT [facility] Blood CAPILLARY BLOOD / Unknown 07/08/2023 6:48 EDT 07/08/2023 6:49 EDT Davian Murrell MD POINT OF CARE TEST O RDERABLES Performing Organization Address [facility] Co de Phone Number [facility] [address], [place] [id number] * CBC HEMOLYSIS REVIEW (07/08/2023 6:32 EDT) Schistocytes Increased schistocytes are seen but less than 1% (1+) of the RBCs 07/08/2023 7:23 EDT [facility] Spherocytes No increase in spherocytes seen. 07/08/2023 7:23 EDT [facility] Differential Comment There is no significant increase in schistocytes or spherocytes. There is no morphologic evidence of hemolysis. 07/08/2023 7:23 EDT [facility] Blood BLOOD SAMPLE TAKEN FROM CENTRAL LINE / Unknown Port / Unknown 07/08/2023 6:32 EDT 07/08/2023 6:35 EDT Leonor Zamudio MD MPH HEMATOLOGY & PF4 ORD ERABLES Performing Organization Address [facility] Co de Phone Number [facility] [address] [place] [address] * (ABNORMAL) COMPLETE BLOOD COUNT (07/08/2023 6:32 EDT) WBC 18.79(H) 4.00 - 10.40 K/cmm 07/08/2023 7:22 EDT [facility] RBC 3.10(L) 4.36 - 5.78 M/cmm 07/08/2023 7:22 EDT [facility] Hemoglobin 7.8(L) 13.8 - 17.3 g/dL 07/08/2023 7:22 [facility] HCT 22.8(L) 39.5 - 50.2 % 07/08/2023 7:22 [facility] MCV 74(L) 81 - 95 fL 07/08/2023 7:22 [facility] MCH 25.2(L) 27.6 - 33.0 pg 07/08/2023 7:22 [facility] Hypochromia 1+ 07/08/2023 7:22 [facility] MCHC 34.2 32.8 - 36.4 g/dL 07/08/2023 7:22 [facility] RDW-CV 26.6(H) <14.2 % 07/08/2023 7:22 [facility] RDW-SD 60.3(H) <46.0 fl 07/08/2023 7:22 [facility] Anisocytosis 3+ 07/08/2023 7:22 [facility] PLT 303 141 - 377 K/cmm 07/08/2023 7:22 [facility] MPV 07/08/2023 7:22 [facility] Comment:Not Available Blood BLOOD SAMPLE TAKEN FROM CENTRAL LINE / Unknown Port / Unknown 07/08/2023 6:32 EDT 07/08/2023 6:35 EDT Leonor Zamudio MD MPH HEMATOLOGY & PF4 ORD ERABLES [facility] [address] [place] [id number] * (ABNORMAL) BASIC METABOLIC PANEL (BMP) (07/08/2023 6:31 EDT) Sodium 149(H) 136 - 145 mmol/L 07/08/2023 8:11 [facility] Potassium 3.0(L) 3.5 - 5.0 mmol/L 07/08/2023 8:11 [facility] Chloride 106 96 - 110 mmol/L 07/[facility]23 [facility] CO2 Total 26 22 - 32 mmol/L 07/08/2023 8:11 [facility] Anion Gap 17(H) 5 - 14 mmol/L 07/08/2023 8:11 [facility] Glucose 136(H) 70 - 99 mg/dl 07/08/2023 8:11 [facility] Calcium 9.5 8.5 - 10.5 mg/dL 07/08/2023 8:11 [facility] BUN 90(H) 10 - 26 mg/dL 07/08/2023 8:11 [facility] Creatinine 3.55(H) 0.66 - 1.25 mg/dL 07/08/2023 8:11 [facility] eGFR 18(L) >60 mL/min/1.73 m2 07/08/2023 8:11 [facility] Blood BLOOD SAMPLE TAKEN FROM CENTRAL LINE / Unknown Port / Unknown 07/08/2023 6:31 EDT 07/08/2023 6:35 EDT Can Oneill MD CHEMISTRY & BLOOD GA S ORDERABLES Performing Organization Address City/[facility]/ZIP Co de Phone Number [facility] [address] [place] [address] * (ABNORMAL) PHOSPHORUS (07/08/2023 6:31 EDT) Phosphorus 5.4(H) 2.5 - 4.5 mg/dL 07/08/2023 7:04 EDT [facility] Blood BLOOD SAMPLE TAKEN FROM CENTRAL LINE / Unknown Port / Unknown 07/08/2023 6:31 EDT 07/08/2023 6:35 EDT Khushi Young MD CHEMISTRY & BLOOD G ORDERABLES Performing Organization Address City/[facility]/ZIP Co de Phone Number [facility] [address] [place] [address] * MAGNESIUM (07/08/2023 6:31 EDT) Pathologist [facility] Magnesium 1.9 1.7 - 2.8 mg/dL 07/08/2023 7:04 EDT [facility] Blood BLOOD SAMPLE TAKEN FROM CENTRAL LINE / Unknown Port / Unknown 07/08/2023 6:31 EDT 07/08/2023 6:35 EDT Davian Murrell MD CHEMISTRY & BLOOD GA S ORDERABLES Performing Organization Address [facility] Co de Phone Number [facility] [address] [place] [address] * (ABNORMAL) PROTIME (07/08/2023 6:31 EDT) [facility] I.N.R. 1.3(H) 0.9 - 1.1 Ratio 07/08/2023 6:56 EDT [facility] Pro Time 14.8(H) 9.7 - 12.8 secs 07/08/2023 6:56 EDT [facility] Blood BLOOD SAMPLE TAKEN FROM CENTRAL LINE / Unknown Port / Unknown 07/08/2023 6:31 EDT 07/08/2023 6:36 EDT Narrative [facility] - 07/08/2023 6:56 EDT Moderate Intensity Coumadin INR = 2.0-3.0 Adjustments in anticoagulant therapy dose should be based on the INR and NOT on the Protime. Khushi Young MD HEMATOLOGY & PF4 OR DERABLES Performing Organization Address [facility]/ZIP Co de Phone Number [facility] [address] [place] [address] * (ABNORMAL) POCT GLUCOSE, INTERFACED (07/07/2023 23:45 EDT) Pathologist [facility] Glucose, POC 118(H) 70 - 100 mg/dL 07/07/2023 23:46 EDT [facility] HN LAB POC COMMENT (GLUCOSE) Test Performed by Nursing Services 07/07/2023 23:46 EDT [facility] Blood CAPILLARY BLOOD / Unknown 07/07/2023 23:45 EDT 07/07/2023 23:46 EDT Davian Murrell MD POINT OF CARE TEST O RDERABLES [facility] [address], [place] [id number] * TYPE AND SCREEN (07/07/2023 20:03 EDT) ABO A 07/07/2023 20:55 EDT [facility] Rh Factor Positive 07/07/2023 20:55 EDT [facility] Antibody Screen Negative 07/07/2023 20:55 EDT [facility] Specimen Expires: 07/10/2023 @ 23:59 07/07/2023 20:55 EDT [facility] Blood BLOOD SAMPLE TAKEN FROM CENTRAL LINE / Unknown Port / Unknown 07/07/2023 20:03 EDT 07/07/2023 20:13 EDT Flor Stack MD BLOOD BANK TESTS Performing Organization Address City/[facility]/ZIP Co de Phone Number [facility] [address] [place] [id number] * (ABNORMAL) POCT GLUCOSE, INTERFACED (07/07/2023 18:08 EDT) Glucose, POC 128(H) 70 - 100 mg/dL 07/07/2023 18:09 EDT [facility] HN LAB POC COMMENT (GLUCOSE) Test Performed by Nursing Services 07/07/2023 18:09 EDT [facility] Blood CAPILLARY BLOOD / Unknown 07/07/2023 18:08 EDT 07/07/2023 18:09 EDT Davian Murrell MD POINT OF CARE TEST O RDERABLES [facility] [address] [place] [id number] * US LOWER VENOUS DUPLEX (DVT) RIGHT (07/07/2023 15:41 EDT) Anatomical Region Laterality Modality Vascular Ultrasound 07/07/2023 17:3 2 EDT Impressions 07/07/2023 17:32 EDT Right lower extremity imaged from the external iliac vein to the popliteal vein. Patient declined further exam. No sonographic evidence of deep venous thrombosis in the right lower extremity above the knee. [id number] Narrative 07/07/2023 17:32 EDT US LOWER VENOUS DUPLEX (DVT) RIGHT ??07/07/2023 3:41 PM SIGNS AND SYMPTOMS/COMMENTS: ??worsening hypoxia and tachycardia. Has muttiple cardiovascular issues as alternative cause but has had DVT px held in setting or prior hematoma. Concerned for possible DVT; COMPARISON: CT angiogram of the right lower extremity June 30, 2022 TECHNIQUE: Grayscale, cine, color Doppler, and spectral tracing images were obtained of the deep venous system of the right lower extremity. Following imaging was only obtained. Patient declined further imaging. Left lower extremity was not imaged. FINDINGS: Deep veins above the knee: ? External Iliac Vein: Normal compression. Normal color Doppler flow. ? Common Femoral Vein: Normal compression. Normal color Doppler flow. ? Deep Femoral Vein: Normal compression. Normal color Doppler flow. ? Proximal Femoral Vein: Normal compression. Normal color Doppler flow. ? Mid Femoral Vein: Normal compression. Normal color Doppler flow. ? Distal Femoral Vein: Normal compression. Normal color Doppler flow. ? Popliteal Vein: Normal compression. Normal color Doppler flow. ?? Deep veins below the knee were not imaged. Superficial veins: ? Imaged Great Saphenous Vein: Normal compression. Normal color Doppler flow. Spectral Doppler: Normal respiratory phasicity and augmentation. Other: No additional finding. Resulting Agency Comment [id number] Procedure Note Real Simpson MD - 07/07/2023 US LOWER VENOUS DUPLEX (DVT) RIGHT 07/07/2023 3:41 PM SIGNS AND SYMPTOMS/COMMENTS: worsening hypoxia and tachycardia. Hasmuttiple cardiovascular issues as alternative cause but has had DVT pxheld in setting or prior hematoma. Concerned for possible DVT; COMPARISON: CT angiogram of the right lower extremity June 30, 2022 TECHNIQUE: Grayscale, cine, color Doppler, and spectral tracing imageswere obtained of the deep venous system of the right lower extremity. Following imaging was only obtained. Patient declined further imaging.Left lower extremity was not imaged. FINDINGS: Deep veins above the knee: External Iliac Vein: Normal compression. Normal color Doppler flow. Common Femoral Vein: Normal compression. Normal color Doppler flow. Deep Femoral Vein: Normal compression. Normal color Doppler flow. Proximal Femoral Vein: Normal compression. Normal color Doppler flow. Mid Femoral Vein: Normal compression. Normal color Doppler flow. Distal Femoral Vein: Normal compression. Normal color Doppler flow. Popliteal Vein: Normal compression. Normal color Doppler flow. Deep veins below the knee were not imaged. Superficial veins: Imaged Great Saphenous Vein: Normal compression. Normal color Dopplerflow. Spectral Doppler: Normal respiratory phasicity and augmentation. Other: No additional finding. IMPRESSION Right lower extremity imaged from the external iliac vein to the poplitealvein. Patient declined further exam. No sonographic evidence of deep venous thrombosis in the right lowerextremity above the knee. [id number] Can Oneill MD IMG US VASCULAR ARNULFO DEL ANGEL * US LOWER EXTREMITY LIMITED LEFT (07/07/2023 15:33 EDT) Anatomical Region Laterality Modality Extremity Ultrasound 07/07/2023 17:3 9 EDT Narrative 07/07/2023 17:39 EDT US LOWER EXTREMITY LIMITED LEFT 07/07/2023 2:43 PM Clinical History/Comments: hematoma with ecchyosis in left thigh, recently restarted dvt ppx, eval size of hematoma for interval follow up; Comparison: CT angiogram July 01, 2027 Technique: Static and cinematographic images of the left thigh were obtained.. Findings: There is a heterogeneous in echotexture mixed intramuscular and subcutaneous hematoma measuring 7.6 cm craniocaudally 4.6 cm transverse and 3.3 cm AP. There are adjacent infiltrative changes changes. Comparison to the prior CT is difficult due to a difference in imaging techniques. [id number] Resulting Agency Comment [id number] Procedure Note Real Simpson MD - 07/07/2023 US LOWER EXTREMITY LIMITED LEFT 07/07/2023 2:43 PM Clinical History/Comments: hematoma with ecchyosis in left thigh, recently restarted dvt ppx, evalsize of hematoma for interval follow up; Comparison: CT angiogram July 01, 2027 Technique: Static and cinematographic images of the left thigh wereobtained.. Findings: There is a heterogeneous in echotexture mixed intramuscular andsubcutaneous hematoma measuring 7.6 cm craniocaudally 4.6 cm transverseand 3.3 cm AP. There are adjacent infiltrative changes changes. Comparisonto the prior CT is difficult due to a difference in imaging techniques. [id number] Can Oneill MD IMG OB ORDERABLES * EKG 12-LEAD (07/07/2023 12:44 EDT) 07/07/2023 12:4 4 EDT Narrative [facility] EKG - 07/15/2023 19:52 EDT ? [facility] ? Test Date: ?2023-07-07 Pat Name: ? DERRICK HOBSON ? Department: ?? Olivo 6 ? Room: ? M623 Gender: ? Male ? 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 [id number] : ?1955 ? Requested By: ELMER HUBBARD Order Number: [id number] ? Reading : ?? OSCAR DAVALOS MD ? Measurements Intervals ?[place] ? Rate: ? 126 ?P: ?0 AR: ? 0 ?QRS: ?16 QRSD: ? 112 ?T: ?93 QT: ? 339 ? QTc: ?491 ? Interpretive Statements ATRIAL FIBRILLATION WITH RAPID VENTRICULAR RESPONSE INTRAVENTRICULAR CONDUCTION DELAY VOLTAGE CRITERIA FOR LVH NONSPECIFIC ST-T WAVE ABNORMALITIES Compared to ECG 07/06/2023 15:13:15 Ventricular rate increased This is a preliminary report. ??Edited by EDNA TAPIA MD on 07-09-2023 15:15:58 EDT. I reviewed the tracing and have either agreed or edited the findings in this report. Electronically Signed On 07-15-2023 19:52:27 EDT by OSCAR DAVALOS MD. 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 Edited by EDNA TAPIA MD on [id number] EDT. I reviewed the tracing and have either agreed or edited the findings inthis report. Electronically Signed On 07-15-2023 19:52:27 EDT by TAMIKO STEVENS. Denisse Drake MD CARDIAC ECG ORDERABL ES [facility] EKG * (ABNORMAL) POCT GLUCOSE, INTERFACED (07/07/2023 12:08 EDT) Glucose, POC 105(H) 70 - 100 mg/dL 07/07/2023 12:10 EDT [facility] HN LAB POC COMMENT (GLUCOSE) Test Performed by Nursing Services 07/07/2023 12:10 EDT [facility] Blood CAPILLARY BLOOD / Unknown 07/07/2023 12:08 EDT 07/07/2023 12:10 EDT Davian Murrell MD POINT OF CARE TEST O RDERABLES [facility] [address] [place] [id number] * (ABNORMAL) POCT GLUCOSE, INTERFACED (07/07/2023 5:58 EDT) Glucose, POC 119(H) 70 - 100 mg/dL 07/07/2023 5:59 EDT [facility] HN LAB POC COMMENT (GLUCOSE) Test Performed by Nursing Services 07/07/2023 5:59 EDT [facility] Blood CAPILLARY BLOOD / Unknown 07/07/2023 5:58 EDT 07/07/2023 5:59 EDT Davian Murrell MD POINT OF CARE TEST O RDERABLES [facility] [address] [place] [address] * (ABNORMAL) COMPLETE BLOOD COUNT (07/07/2023 5:55 EDT) Pathologist [facility] WBC 14.31(H) 4.00 - 10.40 K/cmm 07/07/2023 6:35 [facility] RBC 2.89(L) 4.36 - 5.78 M/cmm 07/07/2023 6:35 [facility] Hemoglobin 7.2(L) 13.8 - 17.3 g/dL 07/07/2023 6:35 [facility] HCT 20.8(LL) 39.5 - 50.2 % 07/07/2023 6:35 [facility] MCV 72(L) 81 - 95 fL 07/07/2023 6:35 [facility] MCH 24.9(L) 27.6 - 33.0 pg 07/07/2023 6:35 [facility] Hypochromia 1+ 07/07/2023 6:35 [facility] MCHC 34.6 32.8 - 36.4 g/dL 07/07/2023 6:35 [facility] RDW-CV 25.2(H) <14.2 % 07/07/2023 6:35 [facility] RDW-SD 57.9(H) <46.0 fl 07/07/2023 6:35 EDT [facility] Anisocytosis 3+ 07/07/2023 6:35 EDT [facility] PLT 235 141 - 377 K/cmm 07/07/2023 6:35 EDT [facility] MPV 07/07/2023 6:35 EDT [facility] Comment:Not Available Blood BLOOD SAMPLE TAKEN FROM CENTRAL LINE / Unknown Port / Unknown 07/07/2023 5:55 EDT 07/07/2023 6:01 EDT Leonor Zamudio MD MPH HEMATOLOGY & PF4 ORD ERABLES Performing Organization Address [facility] Co de Phone Number [facility] [address] [place] [address] * (ABNORMAL) NT PRO BNP (07/07/2023 5:54 EDT) NT-pro BNP 29,800(H) <299 pg/mL 07/07/2023 10:05 EDT [facility] Comment: In the acute setting NT-proBNP values <300 pg/mL have a 98% NPV for excluding acute heart failure. In outpatient populations, NT-proBNP values <125 have a 99% NPV for excluding heart failure. Blood BLOOD SAMPLE TAKEN FROM CENTRAL LINE / Unknown Port / Unknown 07/07/2023 5:54 EDT 07/07/2023 6:01 EDT Can Oneill MD CHEMISTRY & BLOOD GA S ORDERABLES Performing Organization Address [facility]/ZIP Co de Phone Number [facility] [address] [place] [address] * PHOSPHORUS (07/07/2023 5:54 EDT) Phosphorus 4.3 2.5 - 4.5 mg/dL 07/07/2023 6:30 EDT [facility] Blood BLOOD SAMPLE TAKEN FROM CENTRAL LINE / Unknown Port / Unknown 07/07/2023 5:54 EDT 07/07/2023 6:01 EDT Khushi Young MD CHEMISTRY & BLOOD G ORDERABLES Performing Organization Address City/[facility]/ZIP Co de Phone Number [facility] [address], [place] [phone] * MAGNESIUM (07/07/2023 5:54 EDT) Magnesium 1.9 1.7 - 2.8 mg/dL 07/07/2023 6:30 EDT [facility] Blood BLOOD SAMPLE TAKEN FROM CENTRAL LINE / Unknown Port / Unknown 07/07/2023 5:54 EDT 07/07/2023 6:01 EDT Davian Murrell MD CHEMISTRY & BLOOD GA S ORDERABLES Performing Organization Address [facility]/ZIP Co de Phone Number [facility] [address] [place] [phone] * (ABNORMAL) PROTIME (07/07/2023 5:54 EDT) I.N.R. 1.2(H) 0.9 - 1.1 Ratio 07/07/2023 6:21 EDT [facility] Pro Time 14.0(H) 9.7 - 12.8 secs 07/07/2023 6:21 EDT [facility] Blood BLOOD SAMPLE TAKEN FROM CENTRAL LINE / Unknown Port / Unknown 07/07/2023 5:54 EDT 07/07/2023 6:03 EDT Narrative [facility] - 07/07/2023 6:21 EDT Moderate Intensity Coumadin INR = 2.0-3.0 Adjustments in anticoagulant therapy dose should be based on the INR and NOT on the Protime. Khushi Young MD HEMATOLOGY & PF4 OR DERABLES Performing Organization Address City/[facility]/ZIP Co de Phone Number [facility] [address] [place] [address] * (ABNORMAL) COMPREHENSIVE METABOLIC PANEL (CMP) (07/07/2023 5:54 EDT) Sodium 141 136 - 145 mmol/L 07/07/2023 6:30 [facility] Potassium 3.4(L) 3.5 - 5.0 mmol/L 07/07/2023 6:30 [facility] Chloride 103 96 - 110 mmol/L 07/07/2023 6:30 [facility] CO2 Total 27 22 - 32 mmol/L 07/07/2023 6:30 [facility] Glucose 121(H) 70 - 99 mg/dl 07/07/2023 6:30 [facility] BUN 73(H) 10 - 26 mg/dL 07/07/2023 6:30 [facility] Creatinine 3.06(H) 0.66 - 1.25 mg/dL 07/07/2023 6:30 [facility] eGFR 21(L) >60 mL/min/1.7 3m2 07/07/2023 6:30 [facility] Total Protein 7.1 6.3 - 8.2 g/dL 07/07/2023 6:30 [facility] Albumin 3.0(L) 3.4 - 4.9 g/dL 07/07/2023 6:30 [facility] Alkaline Phosphatase 141(H) 38 - 126 U/L 07/07/2023 6:30 [facility] AST 111(H) 15 - 46 U/L 07/07/2023 6:30 [facility] ALT 171(H) <50 U/L 07/07/2023 6:30 [facility] Bilirubin, Total 10.0(H) <1.4 mg/dL 07/07/19 6:30 [facility] Calcium 8.9 8.5 - 10.5 mg/dL 07/07/2023 6:30 [facility] Albumin/Globulin Ratio 0.7(L) 1.0 - 2.5 07/07/2023 6:30 EDT [facility] Anion Gap 11 5 - 14 mmol/L 07/07/2023 6:30 EDT [facility] Blood BLOOD SAMPLE TAKEN FROM CENTRAL LINE / Unknown Port / Unknown 07/07/2023 5:54 EDT 07/07/2023 6:01 EDT Cande Stover MD CHEMISTRY & BLOOD GA S ORDERABLES Performing Organization Address [facility] Co de Phone Number [facility] [address] [place] [address] * (ABNORMAL) POCT GLUCOSE, INTERFACED (07/06/2023 23:50 EDT) Glucose, POC 121(H) 70 - 100 mg/dL 07/06/2023 23:51 EDT [facility] HN LAB POC COMMENT (GLUCOSE) Test Performed by Nursing Services 07/06/2023 23:51 EDT [facility] Blood CAPILLARY BLOOD / Unknown 07/06/2023 23:50 EDT 07/06/2023 23:51 EDT Davian Murrell MD POINT OF CARE TEST O RDERABLES Performing Organization Address [facility] Co de Phone Number [facility] [address], [place] [phone] * US ABDOMEN LIMITED (07/06/2023 19:59 EDT) Anatomical Region Laterality Modality Abdomen, Body Ultrasound 07/06/2023 23:3 4 EDT Impressions 07/06/2023 23:34 EDT Cholelithiasis. No evidence of cholecystitis. Right pleural effusion. [id number] Narrative 07/06/2023 23:34 EDT US ABDOMEN LIMITED 07/06/2023 7:30 PM Clinical History/Comments: Possible cirrhosis, evaluate for cholecystitis; Comparison: CT of the abdomen performed second 2021 Technique: Ultrasound images of the abdomen were obtained. Color Doppler assessment of the kimberly hepatis was obtained.. Patient was not not able to follow verbal instructions. Exam is technically limited. Findings: Exam is limited due to patient's inability to follow verbal instructions. Pancreas: Not adequately visualized. Liver: No focal abnormality. Hepatopetal flow in the portal vein. No evidence of hepatomegaly Gallbladder: Cholelithiasis. Patient was nontender over the gallbladder. No gallbladder wall thickening. The gallbladder wall thickness measures 3 mm Common bile duct: No biliary ductal dilatation. Common bile duct measures 4 mm. Right kidney: Not adequately visualized Proximal abdominal aorta with atherosclerotic plaque normal in caliber. The proximal inferior vena cava was normal. There is a right pleural effusion. Resulting Agency Comment [id number] Procedure Note Real Simpson MD - 07/06/2023 US ABDOMEN LIMITED 07/06/2023 7:30 PM Clinical History/Comments: Possible cirrhosis, evaluate for cholecystitis; Comparison: CT of the abdomen performed second 2021 Technique: Ultrasound images of the abdomen were obtained. Color Dopplerassessment of the kimberly hepatis was obtained.. Patient was not not able tofollow verbal instructions. Exam is technically limited. Findings: Exam is limited due to patient's inability to follow verbalinstructions. Pancreas: Not adequately visualized. Liver: No focal abnormality. Hepatopetal flow in the portal vein. Noevidence of hepatomegaly Gallbladder: Cholelithiasis. Patient was nontender over the gallbladder.No gallbladder wall thickening. The gallbladder wall thickness measures 3mm Common bile duct: No biliary ductal dilatation. Common bile duct measures4 mm. Right kidney: Not adequately visualized Proximal abdominal aorta with atherosclerotic plaque normal in caliber.The proximal inferior vena cava was normal. There is a right pleural effusion. IMPRESSION Cholelithiasis. No evidence of cholecystitis. Right pleural effusion. [id number] Cande Stover MD [facility] ORDERABLES * (ABNORMAL) POCT GLUCOSE, INTERFACED (07/06/2023 18:13 EDT) Glucose, POC 119(H) 70 - 100 mg/dL 07/06/2023 18:14 EDT [facility] HN LAB POC COMMENT (GLUCOSE) Test Performed by Nursing Services 07/06/2023 18:14 EDT [facility] Blood CAPILLARY BLOOD / Unknown 07/06/2023 18:13 EDT 07/06/2023 18:14 EDT Davian Murrell MD POINT OF CARE TEST O RDERABLES Performing Organization Address City/[facility]/ZIP Co de Phone Number [facility] [address] [place] [address] * (ABNORMAL) BACTERIAL CULTURE, URINE (07/06/2023 18:03 EDT) Pathologist [facility] Organism ID [id number], 000 to 100,000 CFU/ml Lydia albicans(A) 07/08/2023 13:54 EDT [facility] Urine URINE SPECIMEN OBTAINED BY CLEAN CATCH PROCEDURE / Unknown Urine Collect / Unknown 07/06/2023 18:03 EDT 07/06/2023 18:27 EDT Denisse Drake MD MICROBIOLOGY - GENER AL ORDERABLES Performing Organization Address [facility] Co de Phone Number [facility] [address] [place] [address] * (ABNORMAL) POCT GLUCOSE, INTERFACED (07/06/2023 16:12 EDT) Pathologist [facility] Glucose, POC 118(H) 70 - 100 mg/dL 07/06/2023 16:45 EDT [facility] HN LAB POC COMMENT (GLUCOSE) Test Performed by Nursing Services 07/06/2023 16:45 EDT [facility] Blood CAPILLARY BLOOD / Unknown 07/06/2023 16:12 EDT 07/06/2023 16:45 EDT Davian Murrell MD POINT OF CARE TEST O RDERABLES Performing Organization Address [facility]/ZIP Co de Phone Number [facility] [address] [place] [address] * XR CHEST PORTABLE 1 VIEW (07/06/2023 15:49 EDT) Anatomical Region Laterality Modality Computed Radiogr aphy 07/06/2023 15:5 4 EDT Impressions 07/06/2023 15:54 EDT Overall, there is no significant change from the prior exam. [id number] Narrative 07/06/2023 15:54 EDT XR CHEST PORTABLE 1 VIEW ??07/06/2023 3:11 PM Clinical History/comments: Ahrf; Comparison: Chest radiograph July 02, 2023. Technique: Single portable AP view of the chest. Findings: Lines/tubes/devices: Right PICC terminating in the cavoatrial junction. A transesophageal tube projects over the esophagus and left upper abdominal quadrant, terminating outside the [id number]. A left jugular approach central line terminates in the mid SVC. Lungs: Right retrocardiac opacity. Pleura: Unchanged small bilateral pleural effusions, right greater than left. Cardiac and mediastinal contours: Borderline enlarged cardiac silhouette. Soft tissues and extrathoracic findings: ??Normal. Bones: Status post left shoulder arthroplasty. Resulting Agency Comment [id number] Procedure Note Ricco Romero MD - 07/06/2023 XR CHEST PORTABLE 1 VIEW 07/06/2023 3:11 PM Clinical History/comments: Ahrf; Comparison: Chest radiograph July 02, 2023. Technique: Single portable AP view of the chest. Findings: Lines/tubes/devices: Right PICC terminating in the cavoatrial junction. Atransesophageal tube projects over the esophagus and left upper abdominalquadrant, terminating outside the [id number]-he-otcl. A left jugular approachcentral line terminates in the mid SVC. Lungs: Right retrocardiac opacity. Pleura: Unchanged small bilateral pleural effusions, right greater thanleft. Cardiac and mediastinal contours: Borderline enlarged cardiacsilhouette. Soft tissues and extrathoracic findings: Normal. Bones: Status post left shoulder arthroplasty. IMPRESSION Overall, there is no significant change from the prior exam. [id number] Cande Stover MD IMG DIAGNOSTIC IMAGI NG ORDERABLES * (ABNORMAL) BLOOD GASES, VENOUS (07/06/2023 15:29 EDT) pH, Venous 7.56(H) 7.31 - 7.41 07/06/2023 15:55 EDT [facility] pCO2, Venous 32(L) 41 - 51 mmHg 07/06/2023 15:55 EDT [facility] pO2, Venous 24(L) 30 - 50 mmHg 07/06/2023 15:55 EDT [facility] tCO2, Venous 29(H) 22 - 28 mmol/L 07/06/2023 15:55 EDT [facility] Temperature 36.9 C 07/06/2023 15:55 T [facility] O2 Saturation, Venous 41(L) 60 - 85 % 07/06/2023 15:55 T [facility] Oxygen Therapy (FIO2) 0.0 % 07/06/2023 15:55 [facility] Base Level 5.20(H) -2.00 - 3.00 mmol/L 07/06/2023 15:55 EDT [facility] Blood VENOUS BLOOD / Unknown Venipuncture / Unknown 07/06/2023 15:29 EDT 07/06/2023 15:40 EDT Cande Stover MD CHEMISTRY & BLOOD GA S ORDERABLES Performing Organization Address City/[facility]/ZIP Co de Phone Number [facility] [address] [place] [address] * LACTIC ACID (07/06/2023 15:29 EDT) Lactic Acid 1.5 <=2.0 mmol/L 07/06/2023 15:55 EDT [facility] Blood VENOUS BLOOD / Unknown Venipuncture / Unknown 07/06/2023 15:29 EDT 07/06/2023 15:40 EDT Cande Stover MD CHEMISTRY & BLOOD GA S ORDERABLES Performing Organization Address City/[facility]/ZIP Co de Phone Number [facility] [address] [place] [address] * EKG 12-LEAD (07/06/2023 15:13 EDT) 07/06/2023 15:1 3 EDT Narrative [facility] EKG - 07/08/2023 15:38 EDT ? [facility] ? Test Date: ?2023-07-06 Pat Name: ? DERRICK PILOTTE ? Department: ?? [address] ? Room: ? M623 Gender: ? Male ? 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 [id number] : ?1955 ? Requested By: VIKA BECERRA Order Number: [id number] ? Mike MD: ?? TROY MELENDEZ MD ? Measurements Intervals ?[place] ? Rate: ? 109 ?P: ?0 AR: ? 0 ?QRS: ?15 QRSD: ? 113 ?T: ?95 QT: ? 381 ? QTc: ?515 ? Interpretive Statements ATRIAL FIBRILLATION WITH RAPID VENTRICULAR RESPONSE MODERATE INTRAVENTRICULAR CONDUCTION DELAY NONSPECIFIC ST & T-WAVE ABNORMALITY Compared to ECG 06/25/2023 13:57:27 The heart rate has increased I reviewed the tracing and have either agreed or edited the findings in this report. Electronically Signed On 07-08-2023 15:38:16 EDT by TROY MELENDEZ MD. 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 Electronically Signed On 07-08-2023 15:38:16 EDT by SOCO STEVENS. Cande Stover MD CARDIAC ECG ORDERABL ES [facility] EKG * BLOOD CULTURE- FOR DIALYSIS USE ONLY (07/06/2023 11:55 EDT) Organism ID No Growth at 5 days 07/11/2023 12:31 EDT [facility] Blood VENOUS BLOOD / Unknown Venipuncture / Unknown 07/06/2023 11:55 EDT 07/06/2023 12:23 EDT Can Oneill MD MICROBIOLOGY - GENER AL ORDERABLES Performing Organization Address City/[facility]/ZIP Co de Phone Number [facility] [address] [place] [address] * BACTERIAL CULTURE, BLOOD (07/06/2023 11:55 EDT) Organism ID No Growth at 5 days 07/11/2023 12:31 EDT [facility] Blood VENOUS BLOOD / Unknown Venipuncture / Unknown 07/06/2023 11:55 EDT 07/06/2023 12:23 EDT Cande Stover MD MICROBIOLOGY - GENER AL ORDERABLES Performing Organization Address [facility] Co de Phone Number [facility] [address] [place] [address] * (ABNORMAL) PROCALCITONIN (07/06/2023 9:31 EDT) Procalcitonin 0.77(H) See Note ng/mL 07/06/2023 16:54 EDT [facility] Comment: NOTE: Reference Range: <0.5 ng/mL - Low risk of severe sepsis >2.0 ng/mL - High risk of severe sepsis Blood VENOUS BLOOD / Unknown Venipuncture / Unknown 07/06/2023 9:31 EDT 07/06/2023 9:43 EDT Can Oneill MD CHEMISTRY & BLOOD GA S ORDERABLES Performing Organization Address City/[facility]/ZIP Co de Phone Number [facility] [address] [place] [address] * (ABNORMAL) COMPREHENSIVE METABOLIC PANEL (CMP) (07/06/2023 9:31 EDT) Sodium 141 136 - 145 mmol/L 07/06/2023 10:08 [facility] Potassium 3.2(L) 3.5 - 5.0 mmol/L 07/06/2023 10:08 [facility] Chloride 99 96 - 110 mmol/L 07/06/2023 10:08 [facility] CO2 Total 27 22 - 32 mmol/L 07/06/2023 10:08 [facility] Glucose 102(H) 70 - 99 mg/dl 07/06/2023 10:08 [facility] BUN 99(H) 10 - 26 mg/dL 07/06/2023 10:08 [facility] Creatinine 4.41(H) 0.66 - 1.25 mg/dL 07/06/2023 10:08 [facility] eGFR 14(L) >60 mL/min/1.7 3m2 07/06/2023 10:08 [facility] Total Protein 7.2 6.3 - 8.2 g/dL 07/06/2023 10:08 [facility] Albumin 3.2(L) 3.4 - 4.9 g/dL 07/06/2023 10:08 [facility] Alkaline Phosphatase 146(H) 38 - 126 U/L 07/06/2023 10:08 [facility] AST 118(H) 15 - 46 U/L 07/06/2023 10:08 [facility] ALT 196(H) <50 U/L 07/06/2023 10:08 [facility] Bilirubin, Total 10.2(H) <1.4 mg/dL 07/06/19 10:08 [facility] Calcium 9.1 8.5 - 10.5 mg/dL 07/06/2023 10:08 [facility] Albumin/Globulin Ratio 0.8(L) 1.0 - 2.5 07/06/2023 10:08 EDT [facility] Anion Gap 15(H) 5 - 14 mmol/L 07/06/2023 10:08 EDT [facility] Blood VENOUS BLOOD / Unknown Venipuncture / Unknown 07/06/2023 9:31 EDT 07/06/2023 9:43 EDT Cande Stover MD CHEMISTRY & BLOOD GA S ORDERABLES Performing Organization Address City/[facility]/ZIP Co de Phone Number [facility] [address] [place] [address] * (ABNORMAL) PHOSPHORUS (07/06/2023 8:22 EDT) Phosphorus 6.3(H) 2.5 - 4.5 mg/dL 07/06/2023 9:00 EDT [facility] Blood VENOUS BLOOD / Unknown Venipuncture / Unknown 07/06/2023 8:22 EDT 07/06/2023 8:27 EDT Khushi Young MD CHEMISTRY & BLOOD G ORDERABLES Performing Organization Address [facility] Co de Phone Number [facility] [address] [place] [address] * MAGNESIUM (07/06/2023 8:22 EDT) Magnesium 2.0 1.7 - 2.8 mg/dL 07/06/2023 9:00 EDT [facility] Blood VENOUS BLOOD / Unknown Venipuncture / Unknown 07/06/2023 8:22 EDT 07/06/2023 8:27 EDT Davian Murrell MD CHEMISTRY & BLOOD GA S ORDERABLES Performing Organization Address [facility] Co de Phone Number [facility] [address] [place] [address] * (ABNORMAL) PROTIME (07/06/2023 8:22 EDT) I.N.R. 1.2(H) 0.9 - 1.1 Ratio 07/06/2023 8:49 EDT [facility] Pro Time 13.2(H) 9.7 - 12.8 secs 07/06/2023 8:49 EDT [facility] Blood VENOUS BLOOD / Unknown Venipuncture / Unknown 07/06/2023 8:22 EDT 07/06/2023 8:29 EDT Narrative [facility] - 07/06/2023 8:49 EDT Moderate Intensity Coumadin INR = 2.0-3.0 Adjustments in anticoagulant therapy dose should be based on the INR and NOT on the Protime. Khushi Young MD HEMATOLOGY & PF4 OR DERABLES Performing Organization Address City/State/[facility] Co de Phone Number [facility] [address] [place] [phone] * (ABNORMAL) BLOOD GASES, VENOUS (07/06/2023 8:22 EDT) pH, Venous 7.51(H) 7.31 - 7.41 07/06/2023 8:30 [facility] pCO2, Venous 34(L) 41 - 51 mmHg 07/06/2023 8:30 [facility] pO2, Venous 30 30 - 50 mmHg 07/06/2023 8:30 [facility] tCO2, Venous 28 22 - 28 mmol/L 07/06/2023 8:30 [facility] Temperature 37.0 C 07/06/2023 8:30 [facility] Comment:Body Temp not noted. 37 degrees assumed. O2 Saturation, Venous 53(L) 60 - 85 % 07/06/2023 8:30 [facility] Oxygen Therapy (FIO2) 07/06/2023 8:30 [facility] Comment:Oxygen therapy not n oted in system. Base Level 3.70(H) -2.00 - 3.00 mmol/L 07/06/2023 8:30 [facility] Blood VENOUS BLOOD / Unknown Venipuncture / Unknown 07/06/2023 8:22 EDT 07/06/2023 8:27 EDT Cande Stover MD CHEMISTRY & BLOOD GA S ORDERABLES Performing Organization Address City/State/[facility] Co de Phone Number [facility] [address] [place] [address] * (ABNORMAL) DIFFERENTIAL (07/06/2023 8:21 EDT) % Neutrophils 80.2 % 07/06/2023 11:36 [facility] % Lymphocytes 8.3 % 07/06/2023 11:36 [facility] % Monocytes 10.1 % 07/06/2023 11:36 [facility] % Eosinophils 0.1 % 07/06/2023 11:36 [facility] % Basophils 0.6 % 07/06/2023 11:36 [facility] % Immature Grans 0.7 % 07/06/19 11:36 [facility] Absolute Neutrophils 11.37(H) 2.20 - 8.85 K/cmm 07/06/2023 11:36 [facility] Absolute Lymphocytes 1.18 1.09 - 3.30 K/cmm 07/06/2023 11:36 [facility] Absolute Monocytes 1.43(H) 0.10 - 0.80 K/cmm 07/06/2023 11:36 [facility] Absolute Eosinophils 0.01(L) 0.03 - 0.61 K/cmm 07/06/2023 11:36 [facility] Absolute Basophils 0.09 0.01 - 0.11 K/cmm 07/06/2023 11:36 [facility] Absolute Immature Grans 0.10(H) 0.00 - 0.06 K/cmm 07/06/2023 11:36 [facility] Type of Differential: Auto 07/06/2023 11:36 [facility] Blood VENOUS BLOOD / Unknown Venipuncture / Unknown 07/06/2023 8:21 EDT 07/06/2023 8:31 EDT Can Oneill MD HEMATOLOGY & PF4 ORD ERABLES [facility] [address] [place] [address] * (ABNORMAL) COMPLETE BLOOD COUNT (07/06/2023 8:21 EDT) WBC 14.18(H) 4.00 - 10.40 [facility] 07/06/2023 8:39 [facility] RBC 3.23(L) 4.36 - 5.78 /count includes the [facility] 07/06/2023 8:39 [facility] Hemoglobin 7.7(L) 13.8 - 17.3 g/dL 07/06/2023 8:39 [facility] HCT 22.7(L) 39.5 - 50.2 % 07/06/2023 8:39 [facility] MCV 70(L) 81 - 95 fL 07/06/2023 8:39 [facility] MCH 23.8(L) 27.6 - 33.0 pg 07/06/2023 8:39 [facility] Hypochromia 1+ 07/06/2023 8:39 [facility] MCHC 33.9 32.8 - 36.4 g/dL 07/06/2023 8:39 [facility] RDW-CV 23.5(H) <14.2 % 07/06/2023 8:39 [facility] RDW-SD 55.1(H) <46.0 fl 07/06/2023 8:39 [facility] Anisocytosis 2+ 07/06/2023 8:39 [facility] PLT 210 141 - 377 K/cmm 07/06/2023 8:39 EDT [facility] MPV 07/06/2023 8:39 EDT [facility] Comment:Not Available Blood VENOUS BLOOD / Unknown Venipuncture / Unknown 07/06/2023 8:21 EDT 07/06/2023 8:31 EDT Leonor Zamudio MD MPH HEMATOLOGY & PF4 ORD ERABLES Performing Organization Address City/[facility]/ZIP Co de Phone Number [facility] [address] [place] [address] * (ABNORMAL) POCT GLUCOSE, INTERFACED (07/05/2023 23:58 EDT) Glucose, POC 136(H) 70 - 100 mg/dL 07/05/2023 23:59 EDT [facility] HN LAB POC COMMENT (GLUCOSE) Test Performed by Nursing Services 07/05/2023 23:59 EDT [facility] Blood CAPILLARY BLOOD / Unknown 07/05/2023 23:58 EDT 07/05/2023 23:59 EDT Davian Murrell MD POINT OF CARE TEST O RDERABLES Performing Organization Address [facility] Co de Phone Number [facility] [address] [place] [address] * (ABNORMAL) POCT GLUCOSE, INTERFACED (07/05/2023 18:14 EDT) Glucose, POC 142(H) 70 - 100 mg/dL 07/05/2023 18:15 EDT [facility] HN LAB POC COMMENT (GLUCOSE) Test Performed by Nursing Services 07/05/2023 18:15 EDT [facility] Blood CAPILLARY BLOOD / Unknown 07/05/2023 18:14 EDT 07/05/2023 18:15 EDT Davian Murrell MD POINT OF CARE TEST O RDERABLES Performing Organization Address [facility]/ZIP Co de Phone Number [facility] [address] [place] [address] * (ABNORMAL) POCT BLOOD GAS, EG6 I-STAT (07/05/2023 14:52 EDT) pH, Venous, i-STAT 7.51(H) 7.31 - 7.41 07/05/2023 14:55 EDT [facility] pCO2, Venous, i-STAT 35(L) 41 - 51 mmHg 07/05/2023 14:55 T [facility] pO2, Venous, i-STAT 26(L) 30 - 50 mmHg 07/05/2023 14:55 EDT [facility] TCO2, Venous, i-STAT 29(H) 22 - 28 mmol/L 07/05/2023 14:55 EDT [facility] O2 Saturation, Venous, i-STAT 55(L) 60 - 85 % 07/05/2023 14:55 EDT [facility] Base Excess(+) / Deficit(-), Venous, i-STAT 5(H) -2 - 3 mmol/L 07/05/2023 14:55 T [facility] Blood VENOUS BLOOD / Unknown 07/05/2023 14:52 EDT 07/05/2023 14:55 EDT Narrative [facility] - 07/05/2023 14:55 EDT Test Performed by Respiratory Can Oneill MD POINT OF CARE TEST O RDERABLES [facility] [address] [place] [address] * (ABNORMAL) POCT GLUCOSE, INTERFACED (07/05/2023 13:01 EDT) Glucose, POC 110(H) 70 - 100 mg/dL 07/05/2023 13:02 EDT [facility] HN LAB POC COMMENT (GLUCOSE) Test Performed by Nursing Services 07/05/2023 13:02 [facility] Blood CAPILLARY BLOOD / Unknown 07/05/2023 13:01 EDT 07/05/2023 13:02 EDT Davian Murrell MD POINT OF CARE TEST O RDERABLES [facility] [address] [place] [address] * (ABNORMAL) COMPLETE BLOOD COUNT (07/05/2023 4:53 EDT) WBC 12.61(H) 4.00 - 10.40 K/cmm 07/05/2023 5:11 [facility] RBC 3.07(L) 4.36 - 5.78 M/cmm 07/05/2023 5:11 [facility] Hemoglobin 7.4(L) 13.8 - 17.3 g/dL 07/05/2023 5:11 [facility] HCT 20.9(LL) 39.5 - 50.2 % 07/05/2023 5:11 [facility] MCV 68(L) 81 - 95 fL 07/05/2023 5:11 [facility] MCH 24.1(L) 27.6 - 33.0 pg 07/05/2023 5:11 [facility] Hypochromia 1+ 07/05/2023 5:11 [facility] MCHC 35.4 32.8 - 36.4 g/dL 07/05/2023 5:11 [facility] RDW-CV 22.5(H) <14.2 % 07/05/2023 5:11 [facility] RDW-SD 52.1(H) <46.0 fl 07/05/2023 5:11 [facility] Anisocytosis 2+ 07/05/2023 5:11 [facility] PLT 156 141 - 377 K/cmm 07/05/2023 5:11 [facility] MPV 07/05/2023 5:11 EDT [facility] Comment:Not Available Blood VENOUS BLOOD / Unknown Venipuncture / Unknown 07/05/2023 4:53 EDT 07/05/2023 4:58 EDT Leonor Zamudio MD MPH HEMATOLOGY & PF4 ORD ERABLES Performing Organization Address City/[facility] Co de Phone Number [facility] [address] [place] [address] * (ABNORMAL) PHOSPHORUS (07/05/2023 4:53 EDT) Pathologist [facility] Phosphorus 5.0(H) 2.5 - 4.5 mg/dL 07/05/2023 5:36 EDT [facility] Blood VENOUS BLOOD / Unknown Venipuncture / Unknown 07/05/2023 4:53 EDT 07/05/2023 4:58 EDT Khushi Young MD CHEMISTRY & BLOOD G ORDERABLES Performing Organization Address [facility] de Phone Number [facility] [address] [place] [id number] * MAGNESIUM (07/05/2023 4:53 EDT) Magnesium 2.0 1.7 - 2.8 mg/dL 07/05/2023 5:36 EDT [facility] Blood VENOUS BLOOD / Unknown Venipuncture / Unknown 07/05/2023 4:53 EDT 07/05/2023 4:58 EDT Davian Murrell MD CHEMISTRY & BLOOD GA S ORDERABLES Performing Organization Address [facility] [place] de Phone Number [facility] [address] [place] [address] * (ABNORMAL) PROTIME (07/05/2023 4:53 EDT) I.N.R. 1.2(H) 0.9 - 1.1 Ratio 07/05/2023 5:27 [facility] Pro Time 13.8(H) 9.7 - 12.8 secs 07/05/2023 5:27 [facility] Blood VENOUS BLOOD / Unknown Venipuncture / Unknown 07/05/2023 4:53 EDT 07/05/2023 5:01 EDT Narrative [facility] - 07/05/2023 5:27 EDT Moderate Intensity Coumadin INR = 2.0-3.0 Adjustments in anticoagulant therapy dose should be based on the INR and NOT on the Protime. Khushi Young MD HEMATOLOGY & PF4 OR DERABLES [facility] [address] [place] [address] * (ABNORMAL) COMPREHENSIVE METABOLIC PANEL (CMP) (07/05/2023 4:53 EDT) Sodium 137 136 - 145 mmol/L 07/05/2023 5:36 [facility] Potassium 3.3(L) 3.5 - 5.0 mmol/L 07/05/2023 5:36 [facility] Chloride 99 96 - 110 mmol/L 07/05/2023 5:36 [facility] CO2 Total 26 22 - 32 mmol/L 07/05/2023 5:36 [facility] Glucose 112(H) 70 - 99 mg/dl 07/05/2023 5:36 [facility] BUN 79(H) 10 - 26 mg/dL 07/05/2023 5:36 [facility] Creatinine 3.57(H) 0.66 - 1.25 mg/dL 07/05/2023 5:36 [facility] eGFR 18(L) >60 mL/min/1.7 3m2 07/05/2023 5:36 [facility] Total Protein 6.1(L) 6.3 - 8.2 g/dL 07/05/2023 5:36 T [facility] Albumin 2.6(L) 3.4 - 4.9 g/dL 07/05/2023 5:36 [facility] Alkaline Phosphatase 149(H) 38 - 126 U/L 07/05/2023 5:36 [facility] AST 149(H) 15 - 46 U/L 07/05/2023 5:36 [facility] ALT 216(H) <50 U/L 07/05/2023 5:36 [facility] Bilirubin, Total 7.9(H) <1.4 mg/dL 07/05/19 5:36 T [facility] Calcium 8.3(L) 8.5 - 10.5 mg/dL 07/05/2023 5:36 [facility] Albumin/Globulin Ratio 0.7(L) 1.0 - 2.5 07/05/2023 5:36 [facility] Anion Gap 12 5 - 14 mmol/L 07/05/2023 5:36 [facility] Blood VENOUS BLOOD / Unknown Venipuncture / Unknown 07/05/2023 4:53 EDT 07/05/2023 4:58 EDT Alec Rizo MD CHEMISTRY & BLOOD GA S ORDERABLES [facility] [address] [place] [address] * (ABNORMAL) POCT GLUCOSE, INTERFACED (07/05/2023 0:39 EDT) Glucose, POC 101(H) 70 - 100 mg/dL 07/05/2023 0:40 EDT [facility] HN LAB POC COMMENT (GLUCOSE) Test Performed by Nursing Services 07/05/2023 0:40 T [facility] Blood CAPILLARY BLOOD / Unknown 07/05/2023 0:39 EDT 07/05/2023 0:40 EDT Davian Murrell MD POINT OF CARE TEST O RDERABLES Performing Organization Address [facility] Co de Phone Number [facility] [address] [place] [address] * (ABNORMAL) HGB (07/04/2023 21:57 EDT) Hemoglobin 7.5(L) 13.8 - 17.3 g/dL 07/04/2023 22:16 EDT [facility] Blood VENOUS BLOOD / Unknown Venipuncture / Unknown 07/04/2023 21:57 EDT 07/04/2023 22:00 EDT Anny Marin MD HEMATOLOGY & PF 4 ORDERABLES Performing Organization Address [facility] Co de Phone Number [facility] [address] [place] [address] * (ABNORMAL) POCT GLUCOSE, INTERFACED (07/04/2023 19:15 EDT) Glucose, POC 103(H) 70 - 100 mg/dL 07/04/2023 19:16 EDT [facility] HN LAB POC COMMENT (GLUCOSE) Test Performed by Nursing Services 07/04/2023 19:16 EDT [facility] Blood CAPILLARY BLOOD / Unknown 07/04/2023 19:15 EDT 07/04/2023 19:16 EDT Davian Murrell MD POINT OF CARE TEST O RDERABLES Performing Organization Address [facility] Co de Phone Number [facility] [address] [place] [address] * (ABNORMAL) POCT GLUCOSE, INTERFACED (07/04/2023 5:12 EDT) Glucose, POC 118(H) 70 - 100 mg/dL 07/04/2023 5:13 EDT [facility] HN LAB POC COMMENT (GLUCOSE) Test Performed by Nursing Services 07/04/2023 5:13 EDT [facility] Blood CAPILLARY BLOOD / Unknown 07/04/2023 5:12 EDT 07/04/2023 5:13 EDT Davian Murrell MD POINT OF CARE TEST O RDERABLES Performing Organization Address [facility]/ZIP Co de Phone Number [facility] [address] [place] [address] * (ABNORMAL) BILIRUBIN DIRECT/INDIRECT (07/04/2023 5:09 EDT) Conjugated Bilirubin 3.6(H) <=0.3 mg/dL 07/04/2023 10:52 EDT [facility] Unconjugated Bilirubin 0.9 <=1.1 mg/dL 07/04/2023 10:52 EDT [facility] Blood VENOUS BLOOD / Unknown Venipuncture / Unknown 07/04/2023 5:09 EDT 07/04/2023 5:13 EDT Khushi Young MD CHEMISTRY & BLOOD G ORDERABLES Performing Organization Address [facility]/ZIP Co de Phone Number [facility] [address] [place] [address] * (ABNORMAL) COMPLETE BLOOD COUNT (07/04/2023 5:09 EDT) WBC 14.00(H) 4.00 - 10.40 K/cmm 07/04/2023 5:31 EDT [facility] RBC 3.50(L) 4.36 - 5.78 M/cmm 07/04/2023 5:31 EDT [facility] Hemoglobin 8.5(L) 13.8 - 17.3 g/dL 07/04/2023 5:31 EDT [facility] HCT 24.2(L) 39.5 - 50.2 % 07/04/2023 5:31 EDT [facility] MCV 69(L) 81 - 95 fL 07/04/2023 5:31 EDT [facility] MCH 24.3(L) 27.6 - 33.0 pg 07/04/2023 5:31 EDT [facility] Hypochromia 1+ 07/04/2023 5:31 EDT [facility] MCHC 35.1 32.8 - 36.4 g/dL 07/04/2023 5:31 T [facility] RDW-CV 21.7(H) <14.2 % 07/04/2023 5:31 EDT [facility] RDW-SD 51.4(H) <46.0 fl 07/04/2023 5:31 T [facility] Anisocytosis 2+ 07/04/2023 5:31 [facility] PLT 124(L) 141 - 377 K/cmm 07/04/2023 5:31 EDT [facility] MPV 07/04/2023 5:31 EDT [facility] Comment:Not Available Blood VENOUS BLOOD / Unknown Venipuncture / Unknown 07/04/2023 5:09 EDT 07/04/2023 5:13 EDT Leonor Zamudio MD MPH HEMATOLOGY & PF4 ORD ERABLES Performing Organization Address City/[facility]/ZIP Co de Phone Number [facility] [address] [place] [address] * (ABNORMAL) PHOSPHORUS (07/04/2023 5:09 EDT) Phosphorus 7.7(H) 2.5 - 4.5 mg/dL 07/04/2023 5:54 EDT [facility] Blood VENOUS BLOOD / Unknown Venipuncture / Unknown 07/04/2023 5:09 EDT 07/04/2023 5:13 EDT Khushi Young MD CHEMISTRY & BLOOD G ORDERABLES Performing Organization Address City/[facility]/ZIP Co de Phone Number [facility] [address] [place] [address] * MAGNESIUM (07/04/2023 5:09 EDT) Magnesium 2.4 1.7 - 2.8 mg/dL 07/04/2023 5:54 EDT [facility] Blood VENOUS BLOOD / Unknown Venipuncture / Unknown 07/04/2023 5:09 EDT 07/04/2023 5:13 EDT Davian Murrell MD CHEMISTRY & BLOOD GA S ORDERABLES [facility] [address] [place] [address] * (ABNORMAL) PROTIME (07/04/2023 5:09 EDT) Pathologist [facility] I.N.R. 1.2(H) 0.9 - 1.1 Ratio 07/04/2023 5:41 EDT [facility] Pro Time 13.7(H) 9.7 - 12.8 secs 07/04/2023 5:41 EDT [facility] Blood VENOUS BLOOD / Unknown Venipuncture / Unknown 07/04/2023 5:09 EDT 07/04/2023 5:16 EDT Narrative [facility] - 07/04/2023 5:41 EDT Moderate Intensity Coumadin INR = 2.0-3.0 Adjustments in anticoagulant therapy dose should be based on the INR and NOT on the Protime. Khushi Young MD HEMATOLOGY & PF4 OR DERABLES [facility] [address], [place] [id number] * (ABNORMAL) COMPREHENSIVE METABOLIC PANEL (CMP) (07/04/2023 5:09 EDT) Sodium 136 136 - 145 mmol/L 07/04/2023 5:54 EDT [facility] Potassium 3.1(L) 3.5 - 5.0 mmol/L 07/04/2023 5:54 [facility] Chloride 98 96 - 110 mmol/L 07/04/2023 5:54 [facility] CO2 Total 21(L) 22 - 32 mmol/L 07/04/2023 5:54 [facility] Glucose 118(H) 70 - 99 mg/dl 07/04/2023 5:54 [facility] BUN 104(H) 10 - 26 mg/dL 07/04/2023 5:54 [facility] Creatinine 5.01(H) 0.66 - 1.25 mg/dL 07/04/2023 5:54 [facility] eGFR 12(L) >60 mL/min/1.7 3m2 07/04/2023 5:54 [facility] Total Protein 6.2(L) 6.3 - 8.2 g/dL 07/04/2023 5:54 [facility] Albumin 2.7(L) 3.4 - 4.9 g/dL 07/04/2023 5:54 [facility] Alkaline Phosphatase 152(H) 38 - 126 U/L 07/04/2023 5:54 [facility] AST 159(H) 15 - 46 U/L 07/04/2023 5:54 [facility] ALT 256(H) <50 U/L 07/04/2023 5:54 [facility] Bilirubin, Total 7.0(H) <1.4 mg/dL 07/04/19 5:54 [facility] Calcium 8.5 8.5 - 10.5 mg/dL 07/04/2023 5:54 [facility] Albumin/Globulin Ratio 0.8(L) 1.0 - 2.5 07/04/2023 5:54 [facility] Anion Gap 17(H) 5 - 14 mmol/L 07/04/2023 5:54 [facility] Blood VENOUS BLOOD / Unknown Venipuncture / Unknown 07/04/2023 5:09 EDT 07/04/2023 5:13 EDT Alec Rizo MD CHEMISTRY & BLOOD GA S ORDERABLES Performing Organization Address [facility] Co de Phone Number [facility] [address], [place] [id number] * POCT GLUCOSE, INTERFACED (07/04/2023 0:25 EDT) Glucose, POC 93 70 - 100 mg/dL 07/04/2023 0:26 EDT [facility] HN LAB POC COMMENT (GLUCOSE) Test Performed by Nursing Services 07/04/2023 0:26 EDT [facility] Blood CAPILLARY BLOOD / Unknown 07/04/2023 0:25 EDT 07/04/2023 0:26 EDT Davian Murrell MD POINT OF CARE TEST O RDERABLES Performing Organization Address [facility] Co de Phone Number [facility] [address] [place] [address] * C. DIFFICILE PCR (07/03/2023 18:35 EDT) [facility] C. difficile PCR Negative Negative 07/03/2023 23:07 EDT [facility] Feces SPECIMEN FROM RECTUM / Unknown Stool Collect / Unknown 07/03/2023 18:35 EDT 07/03/2023 19:06 EDT Leonor Zamudio MD MPH MICROBIOLOGY - GENER AL ORDERABLES Performing Organization Address [facility] Co de Phone Number [facility] [address] [place] [address] * POCT GLUCOSE, INTERFACED (07/03/2023 17:30 EDT) Glucose, POC 99 70 - 100 mg/dL 07/03/2023 17:30 EDT [facility] HN LAB POC COMMENT (GLUCOSE) Test Performed by Nursing Services 07/03/2023 17:30 EDT [facility] Blood CAPILLARY BLOOD / Unknown 07/03/2023 17:30 EDT 07/03/2023 17:30 EDT Kael Denny MD POINT OF CARE TEST O RDERABLES Performing Organization Address [facility]/ZIP Co de Phone Number [facility] [address] [place] [address] * (ABNORMAL) POCT GLUCOSE, INTERFACED (07/03/2023 14:43 EDT) Glucose, POC 120(H) 70 - 100 mg/dL 07/03/2023 14:44 EDT [facility] HN LAB POC COMMENT (GLUCOSE) Test Performed by Nursing Services 07/03/2023 14:44 EDT [facility] Blood CAPILLARY BLOOD / Unknown 07/03/2023 14:43 EDT 07/03/2023 14:44 EDT Davian Murrell MD POINT OF CARE TEST O SEAN Performing Organization Address [facility] Co de Phone Number [facility] [address] [place] [address] * (ABNORMAL) HEMATOCRIT (07/03/2023 14:40 EDT) HCT 21.5(L) 39.5 - 50.2 % 07/03/2023 15:01 EDT [facility] Blood BLOOD SAMPLE TAKEN FROM CENTRAL LINE / Unknown Central Line Draw / Unknown 07/03/2023 14:40 EDT 07/03/2023 14:45 EDT Khushi Young MD HEMATOLOGY & PF4 OR DERABLES Performing Organization Address City/[facility]/ZIP Co de Phone Number [facility] [address] [place] [address] * (ABNORMAL) HGB (07/03/2023 14:40 EDT) Hemoglobin 7.7(L) 13.8 - 17.3 g/dL 07/03/2023 15:01 EDT [facility] Blood BLOOD SAMPLE TAKEN FROM CENTRAL LINE / Unknown Central Line Draw / Unknown 07/03/2023 14:40 EDT 07/03/2023 14:45 EDT Khushi Young MD HEMATOLOGY & PF4 OR DERABLES Performing Organization Address City/[facility]/ZIP Co de Phone Number [facility] [address] [place] [address] * (ABNORMAL) POCT GLUCOSE, INTERFACED (07/03/2023 12:06 EDT) Glucose, POC 119(H) 70 - 100 mg/dL 07/03/2023 12:07 EDT [facility] HN LAB POC COMMENT (GLUCOSE) Test Performed by Nursing Services 07/03/2023 12:07 EDT [facility] Blood CAPILLARY BLOOD / Unknown 07/03/2023 12:06 EDT 07/03/2023 12:07 EDT Kael Denny MD POINT OF CARE TEST O RDERABLES Performing Organization Address [facility] Co de Phone Number [facility] [address] [place] [address] * (ABNORMAL) POCT GLUCOSE, INTERFACED (07/03/2023 10:55 EDT) Glucose, POC 141(H) 70 - 100 mg/dL 07/03/2023 10:56 EDT [facility] HN LAB POC COMMENT (GLUCOSE) Test Performed by Nursing Services 07/03/2023 10:56 EDT [facility] Blood CAPILLARY BLOOD / Unknown 07/03/2023 10:55 EDT 07/03/2023 10:56 EDT Davian Murrell MD POINT OF CARE TEST O RDERABLES [facility] [address], [place] [phone] * POCT GLUCOSE, INTERFACED (07/03/2023 9:43 EDT) Glucose, POC 80 70 - 100 mg/dL 07/03/2023 9:45 EDT [facility] HN LAB POC COMMENT (GLUCOSE) Test Performed by Nursing Services 07/03/2023 9:45 EDT [facility] Blood CAPILLARY BLOOD / Unknown 07/03/2023 9:43 EDT 07/03/2023 9:45 EDT Kael Denny MD POINT OF CARE TEST O RDERAMARIO Performing Organization Address [facility]/ZIP Co de Phone Number [facility] [address], [place] [phone] * (ABNORMAL) POCT GLUCOSE, INTERFACED (07/03/2023 9:29 EDT) Glucose, POC 68(L) 70 - 100 mg/dL 07/03/2023 9:30 EDT [facility] HN LAB POC COMMENT (GLUCOSE) Test Performed by Nursing Services 07/03/2023 9:30 EDT [facility] Blood CAPILLARY BLOOD / Unknown 07/03/2023 9:29 EDT 07/03/2023 9:30 EDT Kael Denny MD POINT OF CARE TEST O RDERABLES [facility] [address], [place] [phone] * (ABNORMAL) POCT GLUCOSE, INTERFACED (07/03/2023 9:22 EDT) Glucose, POC 58(L) 70 - 100 mg/dL 07/03/2023 9:24 EDT [facility] HN LAB POC COMMENT (GLUCOSE) Test Performed by Nursing Services 07/03/2023 9:24 EDT [facility] Blood CAPILLARY BLOOD / Unknown 07/03/2023 9:22 EDT 07/03/2023 9:24 EDT Kael Denny MD POINT OF CARE TEST O RDERABLES Performing Organization Address City/State/[facility] Co de Phone Number [facility] [address], [place] [phone] * (ABNORMAL) COMPLETE BLOOD COUNT (07/03/2023 3:42 EDT) WBC 11.09(H) 4.00 - 10.40 K/cmm 07/03/2023 4:00 [facility] RBC 3.38(L) 4.36 - 5.78 M/cmm 07/03/2023 4:00 [facility] Hemoglobin 8.2(L) 13.8 - 17.3 g/dL 07/03/2023 4:00 [facility] HCT 23.5(L) 39.5 - 50.2 % 07/03/2023 4:00 [facility] MCV 70(L) 81 - 95 fL 07/03/2023 4:00 [facility] MCH 24.3(L) 27.6 - 33.0 pg 07/03/2023 4:00 [facility] Hypochromia 1+ 07/03/2023 4:00 [facility] MCHC 34.9 32.8 - 36.4 g/dL 07/03/2023 4:00 [facility] RDW-CV 21.2(H) <14.2 % 07/03/2023 4:00 [facility] RDW-SD 51.4(H) <46.0 fl 07/03/2023 4:00 [facility] Anisocytosis 2+ 07/03/2023 4:00 [facility] PLT 88(L) 141 - 377 K/cmm 07/03/2023 4:00 EDT [facility] MPV 07/03/2023 4:00 EDT [facility] Comment:Not Available Blood VENOUS BLOOD / Unknown Venipuncture / Unknown 07/03/2023 3:42 EDT 07/03/2023 3:49 EDT Khushi Young MD HEMATOLOGY & PF4 OR DERABLES Performing Organization Address [facility] Co de Phone Number [facility] [address] [place] [address] * (ABNORMAL) PHOSPHORUS (07/03/2023 3:42 EDT) Phosphorus 7.4(H) 2.5 - 4.5 mg/dL 07/03/2023 4:18 EDT [facility] Blood VENOUS BLOOD / Unknown Venipuncture / Unknown 07/03/2023 3:42 EDT 07/03/2023 3:49 EDT Khushi Young MD CHEMISTRY & BLOOD G ORDERABLES Performing Organization Address [facility] de Phone Number [facility] [address] [place] [address] * MAGNESIUM (07/03/2023 3:42 EDT) Magnesium 1.8 1.7 - 2.8 mg/dL 07/03/2023 4:18 EDT [facility] Blood VENOUS BLOOD / Unknown Venipuncture / Unknown 07/03/2023 3:42 EDT 07/03/2023 3:49 EDT Davian Murrell MD CHEMISTRY & BLOOD GA S ORDERABLES Performing Organization Address [facility] de Phone Number [facility] [address] [place] [address] * (ABNORMAL) PROTIME (07/03/2023 3:42 EDT) Pathologist [facility] I.N.R. 1.2(H) 0.9 - 1.1 Ratio 07/03/2023 4:14 [facility] Pro Time 14.0(H) 9.7 - 12.8 secs 07/03/2023 4:14 [facility] Blood VENOUS BLOOD / Unknown Venipuncture / Unknown 07/03/2023 3:42 EDT 07/03/2023 3:53 EDT Narrative [facility] - 07/03/2023 4:14 EDT Moderate Intensity Coumadin INR = 2.0-3.0 Adjustments in anticoagulant therapy dose should be based on the INR and NOT on the Protime. Khushi Young MD HEMATOLOGY & PF4 OR DERABLES [facility] [address] [place] [address] * (ABNORMAL) COMPREHENSIVE METABOLIC PANEL (CMP) (07/03/2023 3:42 EDT) Pathologist [facility] Sodium 133(L) 136 - 145 mmol/L 07/03/2023 4:18 [facility] Potassium 3.1(L) 3.5 - 5.0 mmol/L 07/03/2023 4:18 [facility] Chloride 99 96 - 110 mmol/L 07/03/2023 4:18 [facility] CO2 Total 19(L) 22 - 32 mmol/L 07/03/2023 4:18 [facility] Glucose 106(H) 70 - 99 mg/dl 07/03/2023 4:18 [facility] BUN 86(H) 10 - 26 mg/dL 07/03/2023 4:18 [facility] Creatinine 3.78(H) 0.66 - 1.25 mg/dL 07/03/2023 4:18 [facility] eGFR 17(L) >60 mL/min/1.7 3m2 07/03/2023 4:18 T [facility] Total Protein 5.6(L) 6.3 - 8.2 g/dL 07/03/2023 4:18 [facility] Albumin 2.3(L) 3.4 - 4.9 g/dL 07/03/2023 4:18 [facility] Alkaline Phosphatase 122 38 - 126 U/L 07/03/2023 4:18 [facility] AST 167(H) 15 - 46 U/L 07/03/2023 4:18 [facility] ALT 276(H) <50 U/L 07/03/2023 4:18 [facility] Bilirubin, Total 5.3(H) <1.4 mg/dL 07/03/19 4:18 [facility] Calcium 7.7(L) 8.5 - 10.5 mg/dL 07/03/2023 4:18 [facility] Albumin/Globulin Ratio 0.7(L) 1.0 - 2.5 07/03/2023 4:18 [facility] Anion Gap 15(H) 5 - 14 mmol/L 07/03/2023 4:18 [facility] Blood VENOUS BLOOD / Unknown Venipuncture / Unknown 07/03/2023 3:42 EDT 07/03/2023 3:49 EDT Alec Rizo MD CHEMISTRY & BLOOD GA S ORDERABLES [facility] [address], [place] [id number] * MRSA PCR (07/03/2023 3:42 EDT) MRSA/Staph aureus Result No Staphylococcus aureus detected by PCR 07/03/2023 10:52 EDT [facility] Swab BOTH ANTERIOR NARES / Unknown Swab / Unknown 07/03/2023 3:42 EDT 07/03/2023 4:23 EDT Alec Rizo MD MICROBIOLOGY - GENER AL ORDERABLES [facility] [address], [place] [id number] * POCT GLUCOSE, INTERFACED (07/03/2023 2:34 EDT) Glucose, POC 91 70 - 100 mg/dL 07/03/2023 2:35 EDT [facility] HN LAB POC COMMENT (GLUCOSE) Test Performed by Nursing Services 07/03/2023 2:35 EDT [facility] Blood CAPILLARY BLOOD / Unknown 07/03/2023 2:34 EDT 07/03/2023 2:35 EDT Davian Murrell MD POINT OF CARE TEST O RDERABLES Performing Organization Address City/[facility]/ZIP Co de Phone Number [facility] [address] [place] [phone] * POCT GLUCOSE, INTERFACED (07/02/2023 23:40 EDT) Glucose, POC 80 70 - 100 mg/dL 07/02/2023 23:42 EDT [facility] HN LAB POC COMMENT (GLUCOSE) Test Performed by Nursing Services 07/02/2023 23:42 EDT [facility] Blood CAPILLARY BLOOD / Unknown 07/02/2023 23:40 EDT 07/02/2023 23:42 EDT Davian Murrell MD POINT OF CARE TEST O RDERABLES [facility] [address], [place] [phone] * POCT GLUCOSE, INTERFACED (07/02/2023 20:02 EDT) Glucose, POC 93 70 - 100 mg/dL 07/02/2023 20:15 EDT [facility] HN LAB POC COMMENT (GLUCOSE) Test Performed by Nursing Services 07/02/2023 20:15 EDT [facility] Blood CAPILLARY BLOOD / Unknown 07/02/2023 20:02 EDT 07/02/2023 20:15 EDT Kael Denny MD POINT OF CARE TEST O RDERABLES [facility] [address], [place] [phone] * XR CHEST PORTABLE LINE PLACEMENT (07/02/2023 18:39 EDT) Anatomical Region Laterality Modality Chest Computed Radiogr aphy 07/02/2023 19:0 6 EDT Impressions 07/02/2023 19:06 EDT 1. Right PICC terminating in the superior cavoatrial junction with interval removal of the previously seen right internal jugular central venous catheter. 2. Bilateral pleural effusions. Medial right apical opacity, possibly pleural fluid. 3. Persistent ill-defined right mid and lower lung opacity. [id number] Narrative 07/02/2023 19:06 EDT XR CHEST PORTABLE LINE PLACEMENT ??07/02/2023 6:34 PM Clinical History/comments: Right Sided PICC tip placement; Comparison: Chest radiograph June 26, 2023. CT chest June 25, 2023 Technique: Single portable AP view of the chest. Findings: Lines/tubes: The tip of the endotracheal tube overlies the midthoracic trachea. A transesophageal tube courses below the left hemidiaphragm, with tip beyond the boundary of the image. There is a left internal jugular central venous catheter terminating in the SVC. There is a right upper extremity PICC which terminates at the superior cavoatrial junction. The previously visualized right internal jugular central venous catheter has been removed. Lungs/pleura: The appearance of the lungs is not substantially changed when compared to the prior study. The previously seen ill-defined opacity in the right mid to lower lung is again visualized, possibly pleural fluid and/or atelectasis. A right apical medial opacity is also seen, possibly pleural fluid. Hazy opacity in the left lung base is also seen without change. Bilateral pleural effusions are seen, right greater than left. Cardiac and mediastinal contours: Unchanged. Soft tissues and extrathoracic findings: No significant abnormalities. Bones: Left shoulder arthroplasty. No acute findings. Resulting Agency Comment [id number] Procedure Note Taty Burroughs MD [facility] - 07/02/2023 XR CHEST PORTABLE LINE PLACEMENT 07/02/2023 6:34 PM Clinical History/comments: Right Sided PICC tip placement; Comparison: Chest radiograph June 26, 2023. CT chest June 25, 2023 Technique: Single portable AP view of the chest. Findings: Lines/tubes: The tip of the endotracheal tube overlies the midthoracictrachea. A transesophageal tube courses below the left hemidiaphragm, withtip beyond the boundary of the image. There is a left internal jugularcentral venous catheter terminating in the SVC. There is a right upperextremity PICC which terminates at the superior cavoatrial junction. Thepreviously visualized right internal jugular central venous catheter hasbeen removed. Lungs/pleura: The appearance of the lungs is not substantially changedwhen compared to the prior study. The previously seen ill-defined opacityin the right mid to lower lung is again visualized, possibly pleural fluidand/or atelectasis. A right apical medial opacity is also seen, possiblypleural fluid. Hazy opacity in the left lung base is also seen withoutchange. Bilateral pleural effusions are seen, right greater than left. Cardiac and mediastinal contours: Unchanged. Soft tissues and extrathoracic findings: No significant abnormalities. Bones: Left shoulder arthroplasty. No acute findings. IMPRESSION 1. Right PICC terminating in the superior cavoatrial junction withinterval removal of the previously seen right internal jugular centralvenous catheter. 2. Bilateral pleural effusions. Medial right apical opacity, possiblypleural fluid. 3. Persistent ill-defined right mid and lower lung opacity. [id number] Alec Rizo MD IMG DIAGNOSTIC IMAGI NG ORDERABLES * (ABNORMAL) POCT GLUCOSE, INTERFACED (07/02/2023 18:18 EDT) Glucose, POC 136(H) 70 - 100 mg/dL 07/02/2023 18:19 EDT [facility] HN LAB POC COMMENT (GLUCOSE) Test Performed by Nursing Services 07/02/2023 18:19 EDT [facility] Blood CAPILLARY BLOOD / Unknown 07/02/2023 18:18 EDT 07/02/2023 18:19 EDT Kael Denny MD POINT OF CARE TEST O RDERAMARIO Performing Organization Address [facility]/ZIP Co de Phone Number [facility] [address] [place] [address] * (ABNORMAL) POCT GLUCOSE, INTERFACED (07/02/2023 16:17 EDT) Glucose, POC 116(H) 70 - 100 mg/dL 07/02/2023 16:19 EDT [facility] HN LAB POC COMMENT (GLUCOSE) Test Performed by Nursing Services 07/02/2023 16:19 EDT [facility] Blood CAPILLARY BLOOD / Unknown 07/02/2023 16:17 EDT 07/02/2023 16:19 EDT Kael Denny MD POINT OF CARE TEST O RDERAMARIO Performing Organization Address [facility] Co de Phone Number [facility] [address] [place] [address] * AMMONIA (07/02/2023 16:14 EDT) Ammonia <9 <34 umol/L 07/02/2023 16:45 EDT [facility] Blood VENOUS BLOOD / Unknown Venipuncture / Unknown 07/02/2023 16:14 EDT 07/02/2023 16:22 EDT Edouard Burroughs MD CHEMISTRY & BLO OD GAS ORDERABLES Performing Organization Address [facility]/ZIP Co de Phone Number [facility] [address] [place] [address] * (ABNORMAL) COMPLETE BLOOD COUNT (07/02/2023 16:14 EDT) WBC 10.88(H) 4.00 - 10.40 K/cmm 07/02/2023 16:37 [facility] RBC 3.28(L) 4.36 - 5.78 M/cmm 07/02/2023 16:37 [facility] Hemoglobin 8.0(L) 13.8 - 17.3 g/dL 07/02/2023 16:37 [facility] HCT 22.5(L) 39.5 - 50.2 % 07/02/2023 16:37 [facility] MCV 69(L) 81 - 95 fL 07/02/2023 16:37 [facility] MCH 24.4(L) 27.6 - 33.0 pg 07/02/2023 16:37 [facility] Hypochromia 1+ 07/02/2023 16:37 [facility] MCHC 35.6 32.8 - 36.4 g/dL 07/02/2023 16:37 [facility] RDW-CV 20.8(H) <14.2 % 07/02/2023 16:37 [facility] RDW-SD 49.8(H) <46.0 fl 07/02/2023 16:37 [facility] Anisocytosis 2+ 07/02/2023 16:37 [facility] PLT 74(L) 141 - 377 K/cmm 07/02/2023 16:37 [facility] MPV 07/02/2023 16:37 [facility] Comment:Not Available Blood VENOUS BLOOD / Unknown Venipuncture / Unknown 07/02/2023 16:14 EDT 07/02/2023 16:22 EDT Khushi Young MD HEMATOLOGY & PF4 OR DERABLES [facility] [address], [place] [phone] * (ABNORMAL) POCT GLUCOSE, INTERFACED (07/02/2023 14:10 EDT) Glucose, POC 111(H) 70 - 100 mg/dL 07/02/2023 14:11 EDT [facility] HN LAB POC COMMENT (GLUCOSE) Test Performed by Nursing Services 07/02/2023 14:11 EDT [facility] Blood CAPILLARY BLOOD / Unknown 07/02/2023 14:10 EDT 07/02/2023 14:11 EDT Davian Murrell MD POINT OF CARE TEST O WAYNEERAMARIO Performing Organization Address City/[facility]/ZIP Co de Phone Number [facility] [address], [place] [phone] * (ABNORMAL) POCT GLUCOSE, INTERFACED (07/02/2023 12:46 EDT) Glucose, POC 118(H) 70 - 100 mg/dL 07/02/2023 12:47 EDT [facility] HN LAB POC COMMENT (GLUCOSE) Test Performed by Nursing Services 07/02/2023 12:47 EDT [facility] Blood CAPILLARY BLOOD / Unknown 07/02/2023 12:46 EDT 07/02/2023 12:47 EDT Kael Denny MD POINT OF CARE TEST O SEAN [facility] [address], [place] [address] * POCT GLUCOSE, INTERFACED (07/02/2023 11:49 EDT) Glucose, POC 82 70 - 100 mg/dL 07/02/2023 11:50 EDT [facility] HN LAB POC COMMENT (GLUCOSE) Test Performed by Nursing Services 07/02/2023 11:50 EDT [facility] Blood CAPILLARY BLOOD / Unknown 07/02/2023 11:49 EDT 07/02/2023 11:50 EDT Kael Denny MD POINT OF CARE TEST O SEAN Performing Organization Address [facility] Co de Phone Number [facility] [address], [place] [address] * (ABNORMAL) POCT GLUCOSE, INTERFACED (07/02/2023 11:05 EDT) Glucose, POC 115(H) 70 - 100 mg/dL 07/02/2023 11:06 EDT [facility] HN LAB POC COMMENT (GLUCOSE) Test Performed by Nursing Services 07/02/2023 11:06 EDT [facility] Blood CAPILLARY BLOOD / Unknown 07/02/2023 11:05 EDT 07/02/2023 11:06 EDT Davian Murrell MD POINT OF CARE TEST O SEAN Performing Organization Address [facility] Co de Phone Number [facility] [address] [place] [address] * HEMODIALYSIS (07/02/2023 11:02 EDT) Narrative [facility] POINT OF CARE - 07/02/2023 11:02 EDT Fransisca Fernández RN ? 07/02/2023 14:21 Dialysis Program Nursing Acute-Care Note Kt/V: ??0.66 ? Net fluid removal 1L Access: Temporary Catheter, left IJ Access function: Lumens reversed Pre Post BP 126/88 140/89 Pulse 110 120 Temp 36.9c 36.7c Weight 81kg 80kg Method of weight: Bed Treatment Comments/Issues/concerns Mental Status Pre: intubated/sedated Mental Status Post: intubated/sedated Pain score: Pre: 0. ??Post: 0 Post dialysis system: Moderately clotted Arrived to patients bedside for 3.5hr HD treatment via left IJ non tunneled catheter. ??Unable to aspirate arterial lumen, lines reversed. ??BFR at 350, unable to achieve prescribed BFR r/t arterial pressures >-250. ??Patient repositioned q2hrs with help of staff. ??Increasing venous pressure during last 30 minutes of treatment, 100mL NS flush given, large visible clots, no improvement with venous pressure. ??Ended treatment 14 minutes early r/t clotting. Tolerated treatment well. ??Catheter flushed and capped. ??Report given to Lupe ROMAN. Edwina Hassan MD DIALYSIS ORDERABLE S Performing Organization Address [facility] Co de Phone Number [facility] POINT OF CARE * (ABNORMAL) POCT GLUCOSE, INTERFACED (07/02/2023 9:20 EDT) Glucose, POC 115(H) 70 - 100 mg/dL 07/02/2023 9:22 EDT [facility] HN LAB POC COMMENT (GLUCOSE) Test Performed by Nursing Services 07/02/2023 9:22 EDT [facility] Blood CAPILLARY BLOOD / Unknown 07/02/2023 9:20 EDT 07/02/2023 9:22 EDT Kael Denny MD POINT OF CARE TEST O WAYNEERAMARIO Performing Organization Address [facility] de Phone Number [facility] [address] [place] [phone] * POCT GLUCOSE, INTERFACED (07/02/2023 8:50 EDT) Glucose, POC 86 70 - 100 mg/dL 07/02/2023 8:51 EDT [facility] HN LAB POC COMMENT (GLUCOSE) Test Performed by Nursing Services 07/02/2023 8:51 EDT [facility] Blood CAPILLARY BLOOD / Unknown 07/02/2023 8:50 EDT 07/02/2023 8:51 EDT Kael Denny MD POINT OF CARE TEST O RDERABLES Performing Organization Address [facility]/ZIP Co de Phone Number [facility] [address] [place] [address] * (ABNORMAL) POCT GLUCOSE, INTERFACED (07/02/2023 8:06 EDT) Glucose, POC 59(L) 70 - 100 mg/dL 07/02/2023 8:07 EDT [facility] HN LAB POC COMMENT (GLUCOSE) Test Performed by Nursing Services 07/02/2023 8:07 EDT [facility] Blood CAPILLARY BLOOD / Unknown 07/02/2023 8:06 EDT 07/02/2023 8:07 EDT Kael Denny MD POINT OF CARE TEST O SEAN Performing Organization Address City/[facility]/ZIP Co de Phone Number [facility] [address], [place] [phone] * (ABNORMAL) POCT GLUCOSE, INTERFACED (07/02/2023 6:57 EDT) Glucose, POC 108(H) 70 - 100 mg/dL 07/02/2023 6:59 EDT [facility] HN LAB POC COMMENT (GLUCOSE) Test Performed by Nursing Services 07/02/2023 6:59 EDT [facility] Blood CAPILLARY BLOOD / Unknown 07/02/2023 6:57 EDT 07/02/2023 6:59 EDT Kael Denny MD POINT OF CARE TEST O SEAN Performing Organization Address City/[facility]/ZIP Co de Phone Number [facility] [address], [place] [phone] * POCT GLUCOSE, INTERFACED (07/02/2023 6:23 EDT) Glucose, POC 72 70 - 100 mg/dL 07/02/2023 6:24 EDT [facility] HN LAB POC COMMENT (GLUCOSE) Test Performed by Nursing Services 07/02/2023 6:24 EDT [facility] Blood CAPILLARY BLOOD / Unknown 07/02/2023 6:23 EDT 07/02/2023 6:24 EDT Kael Denny MD POINT OF CARE TEST O RDERABLES Performing Organization Address City/[facility] Co de Phone Number [facility] [address], [place] [phone] * CORTISOL (07/02/2023 4:23 EDT) Cortisol 19 See Note ug/dL 07/02/2023 8:58 EDT [facility] Comment: NOTE: Reference Ranges (from [facility] IF[facility]): Collected Before 10:00 AM: ??4 - 23 ug/dL Collected After 5:00 PM: ?2 - 14 ug/dL The results of this assay can be falsely elevated due to the consumption of Biotin. Blood VENOUS BLOOD / Unknown Venipuncture / Unknown 07/02/2023 4:23 EDT 07/02/2023 4:29 EDT Kael Denny MD CHEMISTRY & BLOOD GA S ORDERABLES Performing Organization Address [facility] Co de Phone Number [facility] [address], [place] [phone] * (ABNORMAL) PHOSPHORUS (07/02/2023 4:23 EDT) Phosphorus 9.5(H) 2.5 - 4.5 mg/dL 07/02/2023 6:44 EDT [facility] Blood VENOUS BLOOD / Unknown Venipuncture / Unknown 07/02/2023 4:23 EDT 07/02/2023 4:29 EDT Khushi Young MD CHEMISTRY & BLOOD G ORDERABLES Performing Organization Address [facility] Co de Phone Number [facility] [address], [place] [phone] * MAGNESIUM (07/02/2023 4:23 EDT) Magnesium 1.8 1.7 - 2.8 mg/dL 07/02/2023 5:13 [facility] Blood VENOUS BLOOD / Unknown Venipuncture / Unknown 07/02/2023 4:23 EDT 07/02/2023 4:29 EDT Davian Murrell MD CHEMISTRY & BLOOD GA S ORDERABLES [facility] [address] [place] [phone] * (ABNORMAL) COMPLETE BLOOD COUNT AND DIFFERENTIAL (07/02/2023 4:23 EDT) WBC 10.34 4.00 - 10.40 K/cmm 07/02/2023 4:40 [facility] RBC 3.23(L) 4.36 - 5.78 M/cmm 07/02/2023 4:40 [facility] Hemoglobin 7.7(L) 13.8 - 17.3 g/dL 07/02/2023 4:40 [facility] HCT 22.5(L) 39.5 - 50.2 % 07/02/2023 4:40 [facility] MCV 70(L) 81 - 95 fL 07/02/2023 4:40 [facility] MCH 23.8(L) 27.6 - 33.0 pg 07/02/2023 4:40 [facility] Hypochromia 1+ 07/02/2023 4:40 [facility] MCHC 34.2 32.8 - 36.4 g/dL 07/02/2023 4:40 [facility] RDW-CV 21.2(H) <14.2 % 07/02/2023 4:40 [facility] RDW-SD 52.7(H) <46.0 fl 07/02/2023 4:40 [facility] Anisocytosis 2+ 07/02/2023 4:40 [facility] PLT 79(L) 141 - 377 K/cmm 07/02/2023 4:40 EDT [facility] MPV 07/02/2023 4:40 [facility] Comment:Not Available % Neutrophils 74.0 % 07/02/2023 4:40 [facility] % Lymphocytes 7.3 % 07/02/2023 4:40 [facility] % Monocytes 15.3 % 07/02/2023 4:40 [facility] % Eosinophils 2.0 % 07/02/2023 4:40 [facility] % Basophils 0.2 % 07/02/2023 4:40 [facility] % Immature Grans 1.2 % 07/02/19 4:40 [facility] Absolute Neutrophils 7.66 2.20 - 8.85 K/cmm 07/02/2023 4:40 [facility] Absolute Lymphocytes 0.75(L) 1.09 - 3.30 K/cmm 07/02/2023 4:40 [facility] Absolute Monocytes 1.58(H) 0.10 - 0.80 K/cmm 07/02/2023 4:40 [facility] Absolute Eosinophils 0.21 0.03 - 0.61 K/cmm 07/02/2023 4:40 [facility] ABS Basophils 0.02 0.01 - 0.11 K/cmm 07/02/2023 4:40 [facility] Absolute Immature Grans 0.12(H) 0.00 - 0.06 K/cmm 07/02/2023 4:40 [facility] Type of Differential: Auto 07/02/2023 4:40 [facility] Blood VENOUS BLOOD / Unknown Venipuncture / Unknown 07/02/2023 4:23 EDT 07/02/2023 4:29 EDT Alec Rizo MD PACKAGES & DNA PROBE ORDERABLES [facility] [address], [place] [phone] * (ABNORMAL) COMPREHENSIVE METABOLIC PANEL (CMP) (07/02/2023 4:23 EDT) Sodium 135(L) 136 - 145 mmol/L 07/02/2023 5:13 [facility] Potassium 3.4(L) 3.5 - 5.0 mmol/L 07/02/2023 5:13 [facility] Chloride 101 96 - 110 mmol/L 07/02/2023 5:13 [facility] CO2 Total 16(L) 22 - 32 mmol/L 07/02/2023 5:13 [facility] Glucose 90 70 - 99 mg/dl 07/02/2023 5:13 [facility] BUN 104(H) 10 - 26 mg/dL 07/02/2023 5:13 [facility] Creatinine 4.32(H) 0.66 - 1.25 mg/dL 07/02/2023 5:13 [facility] eGFR 14(L) >60 mL/min/1.7 3m2 07/02/2023 5:13 [facility] Total Protein 5.3(L) 6.3 - 8.2 g/dL 07/02/2023 5:13 [facility] Albumin 2.2(L) 3.4 - 4.9 g/dL 07/02/2023 5:13 [facility] Alkaline Phosphatase 107 38 - 126 U/L 07/02/2023 5:13 [facility] AST 172(H) 15 - 46 U/L 07/02/2023 5:13 [facility] ALT 312(H) <50 U/L 07/02/2023 5:13 [facility] Bilirubin, Total 4.8(H) <1.4 mg/dL 07/02/19 5:13 [facility] Calcium 7.6(L) 8.5 - 10.5 mg/dL 07/02/2023 5:13 EDT [facility] Albumin/Globulin Ratio 0.7(L) 1.0 - 2.5 07/02/2023 5:13 EDT [facility] Anion Gap 18(H) 5 - 14 mmol/L 07/02/2023 5:13 EDT [facility] Blood VENOUS BLOOD / Unknown Venipuncture / Unknown 07/02/2023 4:23 EDT 07/02/2023 4:29 EDT Alec Rizo MD CHEMISTRY & BLOOD GA S ORDERABLES Performing Organization Address [facility] Co de Phone Number [facility] [address] [place] [address] * (ABNORMAL) POCT GLUCOSE, INTERFACED (07/02/2023 3:13 EDT) Glucose, POC 106(H) 70 - 100 mg/dL 07/02/2023 3:14 EDT [facility] HN LAB POC COMMENT (GLUCOSE) Test Performed by Nursing Services 07/02/2023 3:14 EDT [facility] Blood CAPILLARY BLOOD / Unknown 07/02/2023 3:13 EDT 07/02/2023 3:14 EDT Kael Denny MD POINT OF CARE TEST O RDERABLES Performing Organization Address [facility] Co de Phone Number [facility] [address], [place] [phone] * (ABNORMAL) POCT GLUCOSE, INTERFACED (07/02/2023 2:27 EDT) Glucose, POC 130(H) 70 - 100 mg/dL 07/02/2023 2:28 EDT [facility] HN LAB POC COMMENT (GLUCOSE) Test Performed by Nursing Services 07/02/2023 2:28 EDT [facility] Blood CAPILLARY BLOOD / Unknown 07/02/2023 2:27 EDT 07/02/2023 2:28 EDT Kael Denny MD POINT OF CARE TEST O RDERABLES Performing Organization Address City/[facility]/ZIP Co de Phone Number [facility] [address] [place] [address] * (ABNORMAL) POCT GLUCOSE, INTERFACED (07/02/2023 2:24 EDT) Glucose, POC 229(H) 70 - 100 mg/dL 07/02/2023 2:26 EDT [facility] HN LAB POC COMMENT (GLUCOSE) Test Performed by Nursing Services 07/02/2023 2:26 EDT [facility] Blood CAPILLARY BLOOD / Unknown 07/02/2023 2:24 EDT 07/02/2023 2:26 EDT Kael Denny MD POINT OF CARE TEST O WAYNEERAMARIO Performing Organization Address [facility] Co de Phone Number [facility] [address], [place] [phone] * (ABNORMAL) POCT GLUCOSE, INTERFACED (07/02/2023 2:06 EDT) Glucose, POC 24(LL) 70 - 100 mg/dL 07/02/2023 2:07 EDT [facility] HN LAB POC COMMENT (GLUCOSE) Test Performed by Nursing Services 07/02/2023 2:07 EDT [facility] Blood CAPILLARY BLOOD / Unknown 07/02/2023 2:06 EDT 07/02/2023 2:07 EDT Davian Murrell MD POINT OF CARE TEST O RDERABLES Performing Organization Address City/[facility]/ZIP Co de Phone Number [facility] [address], [place] [phone] * (ABNORMAL) POCT GLUCOSE, INTERFACED (07/02/2023 2:00 EDT) Glucose, POC 39(LL) 70 - 100 mg/dL 07/02/2023 2:06 EDT [facility] HN LAB POC COMMENT (GLUCOSE) Test Performed by Nursing Services 07/02/2023 2:06 EDT [facility] Blood CAPILLARY BLOOD / Unknown 07/02/2023 2:00 EDT 07/02/2023 2:06 EDT Davian Murrell MD POINT OF CARE TEST O RDERABLES Performing Organization Address City/[facility]/ZIP Co de Phone Number [facility] [address] [place] [address] * TRANSFUSE RED BLOOD CELLS (07/02/2023 1:22 EDT) Blood Wandy Piper MD NURSING TREATME NT - BLOOD ADMINISTRATION * TRANSFUSE RED BLOOD CELLS (07/02/2023 1:22 EDT) Blood Wandy Piper MD NURSING TREATME NT - BLOOD ADMINISTRATION * TYPE AND SCREEN (07/01/2023 22:45 EDT) ABO A 07/01/2023 23:27 EDT [facility] Rh Factor Positive 07/01/2023 23:27 EDT [facility] Antibody Screen Negative 07/01/2023 23:27 EDT [facility] Specimen Expires: 07/04/2023 @ 23:59 07/01/2023 23:27 EDT [facility] Blood BLOOD SAMPLE TAKEN FROM CENTRAL LINE / Unknown Venipuncture / Unknown 07/01/2023 22:45 EDT 07/01/2023 22:50 EDT Wandy Piper MD BLOOD BANK TEST S Performing Organization Address City/[facility]/ZIP Co de Phone Number [facility] BLOOD BANK [address] [place] [address] * PREPARE RED BLOOD CELLS (07/01/2023 22:17 EDT) Product Code [id number] [facility] BLOOD BANK Donor Number [id number] U [facility] BLOOD B[facility] Unit ABO A [facility] BLOOD BANK Unit Rh POS [facility] BLOOD B[facility] Unit Status TR^Transfuse [facility] Product Expiration Date [id number] [facility] BLOOD B[facility] Unit Blood Type Code 6200 [facility] BLOOD B[facility] Volume 330 [facility] BLOOD BANK Coding System [id number] Blood 07/01/2023 22:1 7 EDT Wandy Piper MD BLOOD BANK ARNULFO DEL ANGEL Performing Organization Address City/State/[facility] Co de Phone Number [facility] BLOOD BANK [address] [place] [address] * (ABNORMAL) COMPLETE BLOOD COUNT (07/01/2023 21:12 EDT) WBC 9.87 4.00 - 10.40 K/cmm 07/01/2023 21:32 [facility] RBC 2.90(L) 4.36 - 5.78 M/cmm 07/01/2023 21:32 [facility] Hemoglobin 6.9(LL) 13.8 - 17.3 g/dL 07/01/2023 21:32 [facility] HCT 20.0(LL) 39.5 - 50.2 % 07/01/2023 21:32 [facility] MCV 69(L) 81 - 95 fL 07/01/2023 21:32 [facility] MCH 23.8(L) 27.6 - 33.0 pg 07/01/2023 21:32 [facility] Hypochromia 1+ 07/01/2023 21:32 [facility] MCHC 34.5 32.8 - 36.4 g/dL 07/01/2023 21:32 [facility] RDW-CV 21.3(H) <14.2 % 07/01/2023 21:32 EDT [facility] RDW-SD 51.2(H) <46.0 fl 07/01/2023 21:32 EDT [facility] Anisocytosis 2+ 07/01/2023 21:32 EDT [facility] PLT 74(L) 141 - 377 K/cmm 07/01/2023 21:32 EDT [facility] MPV 07/01/2023 21:32 EDT [facility] Comment:Not Available Blood VENOUS BLOOD / Unknown Venipuncture / Unknown 07/01/2023 21:12 EDT 07/01/2023 21:15 EDT Alec Rizo MD HEMATOLOGY & PF4 ORD ERABLES Performing Organization Address [facility] Co de Phone Number [facility] [address], [place] [phone] * (ABNORMAL) POCT GLUCOSE, INTERFACED (07/01/2023 17:42 EDT) Glucose, POC 123(H) 70 - 100 mg/dL 07/01/2023 17:43 EDT [facility] HN LAB POC COMMENT (GLUCOSE) Test Performed by Nursing Services 07/01/2023 17:43 EDT [facility] Blood CAPILLARY BLOOD / Unknown 07/01/2023 17:42 EDT 07/01/2023 17:43 EDT Kael Denny MD POINT OF CARE TEST O RDERABLES Performing Organization Address [facility]/ZIP Co de Phone Number [facility] [address], [place] [address] * POCT GLUCOSE, INTERFACED (07/01/2023 17:00 EDT) Glucose, POC 72 70 - 100 mg/dL 07/01/2023 17:00 EDT [facility] HN LAB POC COMMENT (GLUCOSE) Test Performed by Nursing Services 07/01/2023 17:00 [facility] Blood CAPILLARY BLOOD / Unknown 07/01/2023 17:00 EDT 07/01/2023 17:00 EDT Davian Murrell MD POINT OF CARE TEST O RDERABLES [facility] [address] [place] [address] * (ABNORMAL) COMPLETE BLOOD COUNT (07/01/2023 15:52 EDT) WBC 10.69(H) 4.00 - 10.40 K/cmm 07/01/2023 16:13 [facility] RBC 2.93(L) 4.36 - 5.78 M/cmm 07/01/2023 16:13 [facility] Hemoglobin 7.1(L) 13.8 - 17.3 g/dL 07/01/2023 16:13 [facility] HCT 20.3(LL) 39.5 - 50.2 % 07/01/2023 16:13 [facility] MCV 69(L) 81 - 95 fL 07/01/2023 16:13 [facility] MCH 24.2(L) 27.6 - 33.0 pg 07/01/2023 16:13 [facility] Hypochromia 1+ 07/01/2023 16:13 [facility] MCHC 35.0 32.8 - 36.4 g/dL 07/01/2023 16:13 [facility] RDW-CV 21.3(H) <14.2 % 07/01/2023 16:13 [facility] RDW-SD 51.0(H) <46.0 fl 07/01/2023 16:13 [facility] Anisocytosis 2+ 07/01/2023 16:13 [facility] PLT 75(L) 141 - 377 K/cmm 07/01/2023 16:13 EDT [facility] MPV 07/01/2023 16:13 EDT [facility] Comment:Not Available Blood VENOUS BLOOD / Unknown Venipuncture / Unknown 07/01/2023 15:52 EDT 07/01/2023 15:58 EDT Alec Rizo MD HEMATOLOGY & PF4 ORD ERABLES Performing Organization Address [facility] Co de Phone Number [facility] [address] [place] [address] * POCT GLUCOSE, INTERFACED (07/01/2023 12:25 EDT) Glucose, POC 95 70 - 100 mg/dL 07/01/2023 12:26 EDT [facility] HN LAB POC COMMENT (GLUCOSE) Test Performed by Nursing Services 07/01/2023 12:26 EDT [facility] Blood CAPILLARY BLOOD / Unknown 07/01/2023 12:25 EDT 07/01/2023 12:26 EDT Davian Murrell MD POINT OF CARE TEST O RDERABLES Performing Organization Address [facility] Co de Phone Number [facility] [address] [place] [address] * (ABNORMAL) COMPLETE BLOOD COUNT (07/01/2023 10:09 EDT) WBC 10.93(H) 4.00 - 10.40 K/cmm 07/01/2023 10:23 EDT [facility] RBC 3.24(L) 4.36 - 5.78 M/cmm 07/01/2023 10:23 [facility] Hemoglobin 7.8(L) 13.8 - 17.3 g/dL 07/01/2023 10:23 T [facility] HCT 23.1(L) 39.5 - 50.2 % 07/01/2023 10:23 T [facility] MCV 71(L) 81 - 95 fL 07/01/2023 10:23 T [facility] MCH 24.1(L) 27.6 - 33.0 pg 07/01/2023 10:23 [facility] Hypochromia 1+ 07/01/2023 10:23 [facility] MCHC 33.8 32.8 - 36.4 g/dL 07/01/2023 10:23 [facility] RDW-CV 21.4(H) <14.2 % 07/01/2023 10:23 [facility] RDW-SD 53.1(H) <46.0 fl 07/01/2023 10:23 [facility] Anisocytosis 2+ 07/01/2023 10:23 [facility] PLT 80(L) 141 - 377 K/cmm 07/01/2023 10:23 [facility] MPV 07/01/2023 10:23 [facility] Comment:Not Available Blood VENOUS BLOOD / Unknown Venipuncture / Unknown 07/01/2023 10:09 EDT 07/01/2023 10:15 EDT Alec Rizo MD HEMATOLOGY & PF4 ORD ERABLES [facility] [address] [place] [address] * (ABNORMAL) POCT GLUCOSE, INTERFACED (07/01/2023 5:49 EDT) Glucose, POC 112(H) 70 - 100 mg/dL 07/01/2023 5:51 EDT [facility] HN LAB POC COMMENT (GLUCOSE) Test Performed by Nursing Services 07/01/2023 5:51 EDT [facility] Blood CAPILLARY BLOOD / Unknown 07/01/2023 5:49 EDT 07/01/2023 5:51 EDT Davian Murrell MD POINT OF CARE TEST O RDERABLES Performing Organization Address [facility]/ZIP Co de Phone Number [facility] [address] [place] [address] * (ABNORMAL) PROTIME (07/01/2023 3:00 EDT) Pathologist [facility] I.N.R. 1.4(H) 0.9 - 1.1 Ratio 07/01/2023 3:28 EDT [facility] Pro Time 15.7(H) 9.7 - 12.8 secs 07/01/2023 3:28 EDT [facility] Blood VENOUS BLOOD / Unknown Venipuncture / Unknown 07/01/2023 3:00 EDT 07/01/2023 3:10 EDT Narrative [facility] - 07/01/2023 3:28 EDT Moderate Intensity Coumadin INR = 2.0-3.0 Adjustments in anticoagulant therapy dose should be based on the INR and NOT on the Protime. Khushi Young MD HEMATOLOGY & PF4 OR DERABLES Performing Organization Address [facility] Co de Phone Number [facility] [address] [place] [id number] * MAGNESIUM (07/01/2023 2:55 EDT) [facility] Magnesium 1.9 1.7 - 2.8 mg/dL 07/01/2023 3:31 EDT [facility] Blood VENOUS BLOOD / Unknown Venipuncture / Unknown 07/01/2023 2:55 EDT 07/01/2023 3:05 EDT Davian Murrell MD CHEMISTRY & BLOOD GA S ORDERABLES Performing Organization Address [facility] Co de Phone Number [facility] [address] [place] [address] * (ABNORMAL) COMPLETE BLOOD COUNT AND DIFFERENTIAL (07/01/2023 2:55 EDT) [facility] WBC 10.40 4.00 - 10.40 K/cmm 07/01/2023 3:14 [facility] RBC 3.00(L) 4.36 - 5.78 M/cmm 07/01/2023 3:14 [facility] Hemoglobin 7.2(L) 13.8 - 17.3 g/dL 07/01/2023 3:14 [facility] HCT 21.4(L) 39.5 - 50.2 % 07/01/2023 3:14 [facility] MCV 71(L) 81 - 95 fL 07/01/2023 3:14 [facility] MCH 24.0(L) 27.6 - 33.0 pg 07/01/2023 3:14 [facility] Hypochromia 1+ 07/01/2023 3:14 [facility] MCHC 33.6 32.8 - 36.4 g/dL 07/01/2023 3:14 [facility] RDW-CV 21.2(H) <14.2 % 07/01/2023 3:14 [facility] RDW-SD 51.4(H) <46.0 fl 07/01/2023 3:14 [facility] Anisocytosis 2+ 07/01/2023 3:14 [facility] PLT 72(L) 141 - 377 K/cmm 07/01/2023 3:14 [facility] MPV 07/01/2023 3:14 [facility] Comment:Not Available % Neutrophils 68.1 % 07/01/2023 3:14 [facility] % Lymphocytes 11.8 % 07/01/2023 3:14 [facility] % Monocytes 16.4 % 07/01/2023 3:14 [facility] % Eosinophils 2.1 % 07/01/2023 3:14 [facility] % Basophils 0.2 % 07/01/2023 3:14 [facility] % Immature Grans 1.4 % 07/01/19 3:14 [facility] Absolute Neutrophils 7.07 2.20 - 8.85 K/cmm 07/01/2023 3:14 [facility] Absolute Lymphocytes 1.23 1.09 - 3.30 K/cmm 07/01/2023 3:14 [facility] Absolute Monocytes 1.71(H) 0.10 - 0.80 K/cmm 07/01/2023 3:14 [facility] Absolute Eosinophils 0.22 0.03 - 0.61 K/cmm 07/01/2023 3:14 [facility] ABS Basophils 0.02 0.01 - 0.11 K/cmm 07/01/2023 3:14 [facility] Absolute Immature Grans 0.15(H) 0.00 - 0.06 K/cmm 07/01/2023 3:14 [facility] Type of Differential: Auto 07/01/2023 3:14 [facility] Blood VENOUS BLOOD / Unknown Venipuncture / Unknown 07/01/2023 2:55 EDT 07/01/2023 3:05 EDT Alec Rizo MD PACKAGES & DNA PROBE ORDERABLES [facility] [address] [place] [address] * (ABNORMAL) COMPREHENSIVE METABOLIC PANEL (CMP) (07/01/2023 2:55 EDT) Sodium 134(L) 136 - 145 mmol/L 07/01/2023 3:32 EDT [facility] Potassium 3.7 3.5 - 5.0 mmol/L 07/01/2023 3:32 [facility] Chloride 101 96 - 110 mmol/L 07/01/2023 3:32 [facility] CO2 Total 20(L) 22 - 32 mmol/L 07/01/2023 3:32 T [facility] Glucose 88 70 - 99 mg/dl 07/01/2023 3:32 [facility] BUN 64(H) 10 - 26 mg/dL 07/01/2023 3:32 [facility] Creatinine 2.96(H) 0.66 - 1.25 mg/dL 07/01/2023 3:32 [facility] eGFR 22(L) >60 mL/min/1.7 3m2 07/01/2023 3:32 [facility] Total Protein 4.8(L) 6.3 - 8.2 g/dL 07/01/2023 3:32 [facility] Albumin 1.8(L) 3.4 - 4.9 g/dL 07/01/2023 3:32 [facility] Alkaline Phosphatase 96 38 - 126 U/L 07/01/2023 3:32 [facility] AST 250(H) 15 - 46 U/L 07/01/2023 3:32 [facility] ALT 378(H) <50 U/L 07/01/2023 3:32 [facility] Bilirubin, Total 5.1(H) <1.4 mg/dL 07/01/19 3:32 [facility] Calcium 7.6(L) 8.5 - 10.5 mg/dL 07/01/2023 3:32 [facility] Albumin/Globulin Ratio 0.6(L) 1.0 - 2.5 07/01/2023 3:32 [facility] Anion Gap 13 5 - 14 mmol/L 07/01/2023 3:32 [facility] Blood VENOUS BLOOD / Unknown Venipuncture / Unknown 07/01/2023 2:55 EDT 07/01/2023 3:05 EDT Alec Rizo MD CHEMISTRY & BLOOD GA S ORDERABLES [facility] [address], [place] [id number] * CT ANGIO LOWER EXTREMITY LEFT (07/01/2023 1:12 EDT) Anatomical Region Laterality Modality Lower Extremities Left Computed Tomog soni 07/01/2023 10:0 9 EDT Impressions 07/01/2023 10:09 EDT 1. ??Active extravasation into the ill-defined left thigh hematoma, arising from the superficial femoral artery 2. ??Marked thickening of the urinary bladder, similar to prior. 3. ??Aneurysm of the infrarenal abdominal aorta measuring up to 3.5 cm, similar to prior. 4. ??Mild subcutaneous edema, more confluent in the left lower extremity. Discussed [address] Mccauley the MICU fellow I have personally reviewed the images and the above interpretation and agree with the findings. [id number] Narrative 07/01/2023 10:[address] ANGIO LOWER EXTREMITY LEFT07/01/2023 12:56 AM History: Enlarging hematoma in L lower groin/thigh; Technique: Helical CT was performed through the left lower extremity before and after the uneventful administration of IV contrast. Pre-contrast, arterial, and delayed phase images were obtained from the hip to knee. Multiplanar reformatted images were generated from the source data. Maximum intensity projection and volume rendered 3-D reconstructions were generated/reviewed on an independent workstation. This CT used either dose modulation and/or iterative reconstruction techniques to lower radiation dose. Comparison(s): None Findings: Angiographic Findings: There is an ill-defined left thigh hematoma. Active arterial extravasation is present in the left thigh hematoma arising from the superficial femoral artery. There is expansion of the extravasation in the venous phase imaging. Aneurysm of the infrarenal abdominal aorta measuring up to 3.5 cm, not changed from prior. Non-Angiographic Findings: Pelvis: Marked thickening of the urinary bladder which is decompressed about a [place] catheter. Rectal tube is noted. Osseous Structures: No acute fracture or aggressive osseous lesion. Degenerative changes are present. Soft Tissues: Nonspecific edema is present in the left lower extremity, particularly the left lower extremity at its proximal aspect.. Procedure Note Joe Nicholson MD - 07/01/2023 CT ANGIO LOWER EXTREMITY LEFT07/01/2023 12:56 AM History: Enlarging hematoma in L lower groin/thigh; Technique: Helical CT was performed through the left lower extremitybefore and after the uneventful administration of IV contrast.Pre-contrast, arterial, and delayed phase images were obtained from thehip to knee. Multiplanar reformatted images were generated from the sourcedata. Maximum intensity projection and volume rendered 3-D reconstructionswere generated/reviewed on an independent workstation. This CT used either dose modulation and/or iterative reconstructiontechniques to lower radiation dose. Comparison(s): None Findings: Angiographic Findings: There is an ill-defined left thigh hematoma. Activearterial extravasation is present in the left thigh hematoma arising fromthe superficial femoral artery. There is expansion of the extravasation inthe venous phase imaging. Aneurysm of the infrarenal abdominal aorta measuring up to 3.5 cm, notchanged from prior. Non-Angiographic Findings: Pelvis: Marked thickening of the urinary bladder which is decompressedabout a [place] catheter. Rectal tube is noted. Osseous Structures: No acute fracture or aggressive osseous lesion.Degenerative changes are present. Soft Tissues: Nonspecific edema is present in the left lower extremity,particularly the left lower extremity at its proximal aspect.. IMPRESSION 1. Active extravasation into the ill-defined left thigh hematoma, arisingfrom the superficial femoral artery 2. Marked thickening of the urinary bladder, similar to prior. 3. Aneurysm of the infrarenal abdominal aorta measuring up to 3.5 cm,similar to prior. 4. Mild subcutaneous edema, more confluent in the left lower extremity. Discussed impression [address] Mccauley the MICU fellow I have personally reviewed the images and the above interpretation andagree with the findings. [id number] Wandy Piper MD IM CT ORDERABL ES * POCT GLUCOSE, INTERFACED (07/01/2023 0:12 EDT) Glucose, POC 85 70 - 100 mg/dL 07/01/2023 0:13 EDT [facility] HN LAB POC COMMENT (GLUCOSE) Test Performed by Nursing Services 07/01/2023 0:13 EDT [facility] Blood CAPILLARY BLOOD / Unknown 07/01/2023 0:12 EDT 07/01/2023 0:13 EDT Davian Murrell MD POINT OF CARE TEST O RDERABLES [facility] [address], [place] [id number] * (ABNORMAL) COMPLETE BLOOD COUNT (06/30/2023 22:43 EDT) WBC 12.62(H) 4.00 - 10.40 K/cmm 06/30/2023 23:05 [facility] RBC 3.25(L) 4.36 - 5.78 M/cmm 06/30/2023 23:05 [facility] Hemoglobin 7.8(L) 13.8 - 17.3 g/dL 06/30/2023 23:05 [facility] HCT 22.6(L) 39.5 - 50.2 % 06/30/2023 23:05 [facility] MCV 70(L) 81 - 95 fL 06/30/2023 23:05 [facility] MCH 24.0(L) 27.6 - 33.0 pg 06/30/2023 23:05 [facility] Hypochromia 1+ 06/30/2023 23:05 [facility] MCHC 34.5 32.8 - 36.4 g/dL 06/30/2023 23:05 [facility] RDW-CV 21.0(H) <14.2 % 06/30/2023 23:05 [facility] RDW-SD 50.1(H) <46.0 fl 06/30/2023 23:05 [facility] Anisocytosis 2+ 06/30/2023 23:05 [facility] PLT 74(L) 141 - 377 K/cmm 06/30/2023 23:05 [facility] MPV 06/30/2023 23:05 [facility] Comment:Not Available Blood VENOUS BLOOD / Unknown Venipuncture / Unknown 06/30/2023 22:43 EDT 06/30/2023 22:50 EDT Wandy Piper MD HEMATOLOGY & PF 4 ORDERABLES Performing Organization Address [facility] Co de Phone Number [facility] [address] [place] [address] * POCT GLUCOSE, INTERFACED (06/30/2023 17:52 EDT) Glucose, POC 91 70 - 100 mg/dL 06/30/2023 17:54 EDT [facility] HN LAB POC COMMENT (GLUCOSE) Test Performed by Nursing Services 06/30/2023 17:54 EDT [facility] Blood CAPILLARY BLOOD / Unknown 06/30/2023 17:52 EDT 06/30/2023 17:54 EDT Kael Denny MD POINT OF CARE TEST O SEAN Performing Organization Address [facility] Co de Phone Number [facility] [address] [place] [address] * POCT GLUCOSE, INTERFACED (06/30/2023 14:52 EDT) Glucose, POC 80 70 - 100 mg/dL 06/30/2023 14:53 EDT [facility] HN LAB POC COMMENT (GLUCOSE) Test Performed by Nursing Services 06/30/2023 14:53 EDT [facility] Blood CAPILLARY BLOOD / Unknown 06/30/2023 14:52 EDT 06/30/2023 14:53 EDT Davian Murrell MD POINT OF CARE TEST O WAYNEERAMARIO Performing Organization Address [facility] Co de Phone Number [facility] [address], [place] [phone] * XR FEEDING TUBE PLACEMENT (06/30/2023 13:06 EDT) Anatomical Region Laterality Modality Abdomen Computed Radiogr aphy 06/30/2023 13:1 1 EDT Impressions 06/30/2023 13:11 EDT Findings/Impression: Portable AP view centered over the lower chest upper abdomen demonstrates that the feeding tube tip projects over the gastric body. There has been interval removal of the previously seen transesophageal sump tube. There is interval decrease in volume of dense material in the stomach. Shift of mediastinal structures to the right is again noted and there is evidence of airspace opacity in the right lung base. Air-filled loops of bowel are noted in the imaged portions of the upper abdomen. This is neither a complete view of the chest nor of the abdomen. ??If either view is needed, formal films are recommended. [id number] Narrative 06/30/2023 13:11 EDT XR FEEDING TUBE PLACEMENT ??06/30/2023 12:47 PM Signs and Symptoms/Comments: OGT placement; Comparison: Feeding tube placement radiograph from 06/29/2023. Procedure Note Dasha Baca MD - 06/30/2023 XR FEEDING TUBE PLACEMENT 06/30/2023 12:47 PM Signs and Symptoms/Comments: OGT placement; Comparison: Feeding tube placement radiograph from 06/29/2023. IMPRESSION Findings/Impression: Portable AP view centered over the lower chest upper abdomen demonstratesthat the feeding tube tip projects over the gastric body. There has beeninterval removal of the previously seen transesophageal sump tube. There is interval decrease in volume of dense material in the stomach.Shift of mediastinal structures to the right is again noted and there isevidence of airspace opacity in the right lung base. Air-filled loops ofbowel are noted in the imaged portions of the upper abdomen. This is neither a complete view of the chest nor of the abdomen. Ifeither view is needed, formal films are recommended. [id number] Love Ricks MD IMG DIAGNOSTIC IMAGI NG ORDERABLES * POCT GLUCOSE, INTERFACED (06/30/2023 10:04 EDT) Glucose, POC 80 70 - 100 mg/dL 06/30/2023 10:05 EDT [facility] HN LAB POC COMMENT (GLUCOSE) Test Performed by Nursing Services 06/30/2023 10:05 EDT [facility] Blood CAPILLARY BLOOD / Unknown 06/30/2023 10:04 EDT 06/30/2023 10:05 EDT Davian Murrell MD POINT OF CARE TEST O RDERABLES [facility] [address], [place] [id number] * HEPARIN LEVEL - UNFRACTIONATED HEPARIN (06/30/2023 10:02 EDT) Heparin Level-UFH 0.41 Therapeutic Range: 0.30 - 0.70 IU/mL 06/30/2023 10:34 EDT [facility] Comment:Unfractionated hepar in therapeutic range = 0.3-0.7 IU/ml - This test is not intended for monitoring direct Xa inhibitors, direct thrombin inhibitors, or fondaparinux.- Exogenous ATIII is NOT supplied in this assay. For unexpected or persistently low levels, consider measuring patient's ATIII level. Results will be overestimated in the presence of direct Xa inhibitors (rivaroxaban, apixaban, edoxaban). Blood VENOUS BLOOD / Unknown Venipuncture / Unknown 06/30/2023 10:02 EDT 06/30/2023 10:13 EDT Kael Denny MD HEMATOLOGY & PF4 ORD ERABLES Performing Organization Address City/[facility]/ZIP Co de Phone Number [facility] [address], [place] [address] * POCT GLUCOSE, INTERFACED (06/30/2023 5:56 EDT) Glucose, POC 75 70 - 100 mg/dL 06/30/2023 6:02 EDT [facility] HN LAB POC COMMENT (GLUCOSE) Test Performed by Nursing Services 06/30/2023 6:02 EDT [facility] Blood CAPILLARY BLOOD / Unknown 06/30/2023 5:56 EDT 06/30/2023 6:02 EDT Love Ricks MD POINT OF CARE TEST O RDERABLES Performing Organization Address City/[facility]/ZIP Co de Phone Number [facility] [address] [place] [address] * TRIGLYCERIDE (06/30/2023 2:34 EDT) Triglyceride 65 <=150 mg/dL 06/30/2023 9:08 EDT [facility] Comment:Note that therapeuti c goals will differ between patients based on cardiac risk factors and current medical therapy. Blood VENOUS BLOOD / Unknown Venipuncture / Unknown 06/30/2023 2:34 EDT 06/30/2023 2:40 EDT Kael Denny MD CHEMISTRY & BLOOD GA S ORDERABLES Performing Organization Address [facility] Co de Phone Number [facility] [address], [place] [phone] * (ABNORMAL) DIFFERENTIAL, AUTOMATED MANUAL (06/30/2023 2:34 EDT) % Neutrophils 81.7 Not Indicated % 06/30/2023 3:26 [facility] % Banded Neutrophils 0.9 Not Indicated % 06/30/2023 3:26 [facility] % Lymphocytes 6.1 Not Indicated % 06/30/2023 3:26 [facility] % Atypical Lymphocytes 1.7 Not Indicated % 06/30/2023 3:26 [facility] % Monocytes 9.6 Not Indicated % 06/30/2023 3:26 [facility] Schistocytes Increased schistocytes are seen but less than 1% (1+) of the RBCs 06/30/2023 3:26 [facility] Acanthocytes 1+ 06/30/2023 3:26 [facility] [place] Cells 3+ 06/30/2023 3:26 [facility] Ovalocytes 2+ 06/30/2023 3:26 [facility] Target Cells 2+ 06/30/2023 3:26 EDT [facility] Toxic Granulation Present 06/30/2023 3:26 T [facility] Vacuolated Neutrophils Present 06/30/2023 3:26 [facility] Large Platelets Present K/cmm 3:26 [facility] Absolute Neutrophils 10.47(H) 2.20 - 8.85 K/cmm 06/30/2023 3:26 T [facility] Absolute Bands 0.12 K/cmm 06/30/2023 3:26 [facility] Absolute Lymphocytes 0.78(L) 1.09 - 3.30 K/cmm 06/30/2023 3:26 [facility] Absolute Atypical Lymphocytes 0.22 K/cmm 06/30/2023 3:26 [facility] Absolute Monocytes 1.23(H) 0.10 - 0.80 K/cmm 06/30/2023 3:26 [facility] Type of Differential: Manual 06/30/2023 3:26 [facility] Blood VENOUS BLOOD / Unknown Venipuncture / Unknown 06/30/2023 2:34 EDT 06/30/2023 2:40 EDT Alec Rizo MD HEMATOLOGY & PF4 ORD ERABLES [facility] [address] [place] [address] * MAGNESIUM (06/30/2023 2:34 EDT) Magnesium 2.0 1.7 - 2.8 mg/dL 06/30/2023 3:53 EDT [facility] Blood VENOUS BLOOD / Unknown Venipuncture / Unknown 06/30/2023 2:34 EDT 06/30/2023 2:40 EDT Roque Correa MD CHEMISTRY & BLOOD GA S ORDERABLES [facility] [address] [place] [address] * HEPARIN LEVEL - UNFRACTIONATED HEPARIN (06/30/2023 2:34 EDT) [facility] Heparin Level-UFH 0.24 Therapeutic Range: 0.30 - 0.70 IU/mL 06/30/2023 3:05 EDT [facility] Comment:Unfractionated hepar in therapeutic range = 0.3-0.7 IU/ml - This test is not intended for monitoring direct Xa inhibitors, direct thrombin inhibitors, or fondaparinux.- Exogenous ATIII is NOT supplied in this assay. For unexpected or persistently low levels, consider measuring patient's ATIII level. Results will be overestimated in the presence of direct Xa inhibitors (rivaroxaban, apixaban, edoxaban). Blood VENOUS BLOOD / Unknown Venipuncture / Unknown 06/30/2023 2:34 EDT 06/30/2023 2:40 EDT Percy Teresa MD HEMATOLOGY & PF4 ORDERABLES Performing Organization Address [facility] Co de Phone Number [facility] [address] [place] [address] * (ABNORMAL) PROTIME (06/30/2023 2:34 EDT) [facility] I.N.R. 1.7(H) 0.9 - 1.1 Ratio 06/30/2023 3:01 EDT [facility] Pro Time 19.0(H) 9.7 - 12.8 secs 06/30/2023 3:01 EDT [facility] Blood VENOUS BLOOD / Unknown Venipuncture / Unknown 06/30/2023 2:34 EDT 06/30/2023 2:40 EDT Narrative [facility] - 06/30/2023 3:01 EDT Moderate Intensity Coumadin INR = 2.0-3.0 Adjustments in anticoagulant therapy dose should be based on the INR and NOT on the Protime. Khushi Young MD HEMATOLOGY & PF4 OR DERABLES [facility] [address] [place] [address] * (ABNORMAL) COMPLETE BLOOD COUNT AND DIFFERENTIAL (06/30/2023 2:34 EDT) WBC 12.81(H) 4.00 - 10.40 K/cmm 06/30/2023 2:54 T [facility] RBC 3.51(L) 4.36 - 5.78 M/cmm 06/30/2023 2:54 [facility] Hemoglobin 8.3(L) 13.8 - 17.3 g/dL 06/30/2023 2:54 [facility] HCT 24.9(L) 39.5 - 50.2 % 06/30/2023 2:54 [facility] MCV 71(L) 81 - 95 fL 06/30/2023 2:54 [facility] MCH 23.6(L) 27.6 - 33.0 pg 06/30/2023 2:54 [facility] Hypochromia 1+ 06/30/2023 2:54 [facility] MCHC 33.3 32.8 - 36.4 g/dL 06/30/2023 2:54 [facility] RDW-CV 21.2(H) <14.2 % 06/30/2023 2:54 [facility] RDW-SD 51.7(H) <46.0 fl 06/30/2023 2:54 [facility] Anisocytosis 2+ 06/30/2023 2:54 [facility] PLT 94(L) 141 - 377 K/cmm 06/30/2023 2:54 [facility] MPV 06/30/2023 2:54 [facility] Comment:Not Available Blood VENOUS BLOOD / Unknown Venipuncture / Unknown 06/30/2023 2:34 EDT 06/30/2023 2:40 EDT Alec Rizo MD PACKAGES & DNA PROBE ORDERABLES [facility] [address] [place] [address] * (ABNORMAL) COMPREHENSIVE METABOLIC PANEL (CMP) (06/30/2023 2:34 EDT) Sodium 137 136 - 145 mmol/L 06/30/2023 3:53 [facility] Potassium 3.8 3.5 - 5.0 mmol/L 06/30/2023 3:53 [facility] Chloride 106 96 - 110 mmol/L 06/30/2023 3:53 [facility] CO2 Total 20(L) 22 - 32 mmol/L 06/30/2023 3:53 [facility] Glucose 84 70 - 99 mg/dl 06/30/2023 3:53 [facility] BUN 46(H) 10 - 26 mg/dL 06/30/2023 3:53 [facility] Creatinine 2.44(H) 0.66 - 1.25 mg/dL 06/30/2023 3:53 [facility] eGFR 28(L) >60 mL/min/1.7 3m2 06/30/2023 3:53 [facility] Total Protein 5.1(L) 6.3 - 8.2 g/dL 06/30/2023 3:53 [facility] Albumin 2.1(L) 3.4 - 4.9 g/dL 06/30/2023 3:53 [facility] Alkaline Phosphatase 127(H) 38 - 126 U/L 06/30/2023 3:53 [facility] AST 569(H) 15 - 46 U/L 06/30/2023 3:53 [facility] ALT 617(H) <50 U/L 06/30/2023 3:53 [facility] Bilirubin, Total 6.1(H) <1.4 mg/dL 06/30/19 3:53 EDT [facility] Calcium 7.9(L) 8.5 - 10.5 mg/dL 06/30/2023 3:53 EDT [facility] Albumin/Globulin Ratio 0.7(L) 1.0 - 2.5 06/30/2023 3:53 EDT [facility] Anion Gap 11 5 - 14 mmol/L 06/30/2023 3:53 EDT [facility] Blood VENOUS BLOOD / Unknown Venipuncture / Unknown 06/30/2023 2:34 EDT 06/30/2023 2:40 EDT Alec Rizo MD CHEMISTRY & BLOOD GA S ORDERABLES Performing Organization Address [facility] Co de Phone Number [facility] [address], [place] [id number] * POCT GLUCOSE, INTERFACED (06/30/2023 2:19 EDT) Glucose, POC 95 70 - 100 mg/dL 06/30/2023 2:20 EDT [facility] HN LAB POC COMMENT (GLUCOSE) Test Performed by Nursing Services 06/30/2023 2:20 EDT [facility] Blood CAPILLARY BLOOD / Unknown 06/30/2023 2:19 EDT 06/30/2023 2:20 EDT Love Ricks MD POINT OF CARE TEST O RDERABLES Performing Organization Address City/[facility]/ZIP Co de Phone Number [facility] [address] [place] [address] * POCT GLUCOSE, INTERFACED (06/29/2023 22:08 EDT) Glucose, POC 97 70 - 100 mg/dL 06/29/2023 22:09 EDT [facility] HN LAB POC COMMENT (GLUCOSE) Test Performed by Nursing Services 06/29/2023 22:09 EDT [facility] Blood CAPILLARY BLOOD / Unknown 06/29/2023 22:08 EDT 06/29/2023 22:09 EDT Love Ricks MD POINT OF CARE TEST O RDERABLES Performing Organization Address [facility] de Phone Number [facility] [address], [place] [address] * MAGNESIUM (06/29/2023 17:52 EDT) Magnesium 2.1 1.7 - 2.8 mg/dL 06/29/2023 18:16 EDT [facility] Blood VENOUS BLOOD / Unknown Venipuncture / Unknown 06/29/2023 17:52 EDT 06/29/2023 17:59 EDT Roque Correa MD CHEMISTRY & BLOOD GA S ORDERABLES Performing Organization Address City/[facility] Co de Phone Number [facility] [address] [place] [address] * (ABNORMAL) ELECTROLYTES (06/29/2023 17:52 EDT) Sodium 136 136 - 145 mmol/L 06/29/2023 18:16 EDT [facility] Potassium 3.7 3.5 - 5.0 mmol/L 06/29/2023 18:16 EDT [facility] Chloride 105 96 - 110 mmol/L 06/29/2023 18:16 EDT [facility] CO2 Total 20(L) 22 - 32 mmol/L 06/29/2023 18:16 EDT [facility] Anion Gap 11 5 - 14 mmol/L 06/29/2023 18:16 EDT [facility] Blood VENOUS BLOOD / Unknown Venipuncture / Unknown 06/29/2023 17:52 EDT 06/29/2023 17:59 EDT Roque Correa MD CHEMISTRY & BLOOD GA S ORDERABLES Performing Organization Address City/[facility]/ZIP Co de Phone Number [facility] [address], [place] [id number] * (ABNORMAL) POCT GLUCOSE, INTERFACED (06/29/2023 17:28 EDT) Glucose, POC 109(H) 70 - 100 mg/dL 06/29/2023 17:29 EDT [facility] HN LAB POC COMMENT (GLUCOSE) Test Performed by Nursing Services 06/29/2023 17:29 EDT [facility] Blood CAPILLARY BLOOD / Unknown 06/29/2023 17:28 EDT 06/29/2023 17:29 EDT Love Ricks MD POINT OF CARE TEST O RDERABLES Performing Organization Address [facility] Co de Phone Number [facility] [address], [place] [phone] * (ABNORMAL) POCT GLUCOSE, INTERFACED (06/29/2023 12:41 EDT) Glucose, POC 120(H) 70 - 100 mg/dL 06/29/2023 12:42 EDT [facility] HN LAB POC COMMENT (GLUCOSE) Test Performed by Nursing Services 06/29/2023 12:42 EDT [facility] Blood CAPILLARY BLOOD / Unknown 06/29/2023 12:41 EDT 06/29/2023 12:42 EDT Love Ricks MD POINT OF CARE TEST O RDERAMARIO Performing Organization Address City/[facility]/ZIP Co de Phone Number [facility] [address], [place] [phone] * HEPARIN LEVEL - UNFRACTIONATED HEPARIN (06/29/2023 12:37 EDT) Heparin Level-UFH 0.33 Therapeutic Range: 0.30 - 0.70 IU/mL 06/29/2023 13:13 EDT [facility] Comment:Unfractionated hepar in therapeutic range = 0.3-0.7 IU/ml - This test is not intended for monitoring direct Xa inhibitors, direct thrombin inhibitors, or fondaparinux.- Exogenous ATIII is NOT supplied in this assay. For unexpected or persistently low levels, consider measuring patient's ATIII level. Results will be overestimated in the presence of direct Xa inhibitors (rivaroxaban, apixaban, edoxaban). Blood VENOUS BLOOD / Unknown Venipuncture / Unknown 06/29/2023 12:37 EDT 06/29/2023 12:53 EDT Percy Teresa MD HEMATOLOGY & PF4 ORDERABLES Performing Organization Address City/[facility]/ZIP Co de Phone Number [facility] [address] [place] [address] * POCT GLUCOSE, INTERFACED (06/29/2023 9:53 EDT) Glucose, POC 81 70 - 100 mg/dL 06/29/2023 9:54 EDT [facility] HN LAB POC COMMENT (GLUCOSE) Test Performed by Nursing Services 06/29/2023 9:54 EDT [facility] Blood CAPILLARY BLOOD / Unknown 06/29/2023 9:53 EDT 06/29/2023 9:54 EDT Love Ricks MD POINT OF CARE TEST O RDERABLES Performing Organization Address City/[facility]/ZIP Co de Phone Number [facility] [address] [place] [address] * US UPPER VENOUS DUPLEX (DVT) BILATERAL (06/29/2023 9:11 EDT) Anatomical Region Laterality Modality Vascular Ultrasound Narrative 07/01/2023 15:20 EDT ?Unable to visualize the bilateral internal jugular veins or brachiocephalic veins due to bilateral internal jugular lines and bandages. ?Superficial vein thrombosis within the left upper extremity. Negative for deep vein thrombosis ?Negative for deep and superficial vein thrombosis within the right upper extremity. Left Upper Superficial Venous The left basilic vein in the mid upper arm was constricted, was non-compressible and was hyperechoic. The left basilic vein in the distal upper arm was constricted, was non-compressible and was hyperechoic. Venous HPI and Indications Bilateral upper extremity swelling, concern for HIT Venous Past Medical History Tobacco use. Right Upper Venous Other The right internal jugular, brachiocephalic, subclavian, cephalic, axillary, basilic, and brachial veins demonstrate normal Doppler flow/waveforms and no sonographic evidence of thrombus. Left Upper Venous Other All other visualized veins in the left upper extremity demonstrated normal compressibility with no intraluminal echoes present. Alec Rizo MD [facility] * (ABNORMAL) POCT GLUCOSE, INTERFACED (06/29/2023 5:58 EDT) Glucose, POC 132(H) 70 - 100 mg/dL 06/29/2023 5:59 EDT [facility] HN LAB POC COMMENT (GLUCOSE) Test Performed by Nursing Services 06/29/2023 5:59 EDT [facility] Blood CAPILLARY BLOOD / Unknown 06/29/2023 5:58 EDT 06/29/2023 5:59 EDT Charanjit Taylor MD POINT OF CARE TEST O RDERABLES [facility] [address] [place] [address] * HEPARIN LEVEL - UNFRACTIONATED HEPARIN (06/29/2023 5:34 EDT) Heparin Level-UFH 0.24 Therapeutic Range: 0.30 - 0.70 IU/mL 06/29/2023 6:17 EDT [facility] Comment: Unfractionated heparin therapeutic range = 0.3-0.7 IU/ml - This test is not intended for monitoring direct Xa inhibitors, direct thrombin inhibitors, or fondaparinux.- Exogenous ATIII is NOT supplied in this assay. For unexpected or persistently low levels, consider measuring patient's ATIII level. Results will be overestimated in the presence of direct Xa inhibitors (rivaroxaban, apixaban, edoxaban). Sample retested, result confirmed. Blood VENOUS BLOOD / Unknown Venipuncture / Unknown 06/29/2023 5:34 EDT 06/29/2023 5:42 EDT Percy Teresa MD HEMATOLOGY & PF4 ORDERABLES Performing Organization Address [facility] Co de Phone Number [facility] [address] [place] [address] * POCT GLUCOSE, INTERFACED (06/29/2023 5:33 EDT) Pathologist [facility] Glucose, POC 71 70 - 100 mg/dL 06/29/2023 5:34 EDT [facility] HN LAB POC COMMENT (GLUCOSE) Test Performed by Nursing Services 06/29/2023 5:34 EDT [facility] Blood CAPILLARY BLOOD / Unknown 06/29/2023 5:33 EDT 06/29/2023 5:34 EDT Love Ricks MD POINT OF CARE TEST O RDERABLES Performing Organization Address [facility] de Phone Number [facility] [address] [place] [address] * (ABNORMAL) DIFFERENTIAL, AUTOMATED MANUAL (06/29/2023 4:41 EDT) % Neutrophils 81.7 Not Indicated % 06/29/2023 7:27 EDT [facility] % Lymphocytes 7.8 Not Indicated % 06/29/2023 7:27 T [facility] % Atypical Lymphocytes 0.9 Not Indicated % 06/29/2023 7:27 [facility] % Monocytes 7.0 Not Indicated % 06/29/2023 7:27 T [facility] % Eosinophils 2.6 Not Indicated % 06/29/2023 7:27 EDT [facility] Schistocytes Increased schistocytes are seen but less than 1% (1+) of the RBCs 06/29/2023 7:27 [facility] Target Cells 2+ 06/29/2023 7:27 [facility] Absolute Neutrophils 10.36(H) 2.20 - 8.85 K/cmm 06/29/2023 7:27 [facility] Absolute Lymphocytes 0.99(L) 1.09 - 3.30 K/cmm 06/29/2023 7:27 [facility] Absolute Atypical Lymphocytes 0.11 K/cmm 06/29/2023 7:27 [facility] Absolute Monocytes 0.89(H) 0.10 - 0.80 K/cmm 06/29/2023 7:27 [facility] Absolute Eosinophils 0.33 0.03 - 0.61 K/cmm 06/29/2023 7:27 [facility] Smudge Cells Present 06/29/2023 7:27 [facility] Type of Differential: Manual 06/29/2023 7:27 [facility] Blood VENOUS BLOOD / Unknown Venipuncture / Unknown 06/29/2023 4:41 EDT 06/29/2023 4:45 EDT Alec Rizo MD HEMATOLOGY & PF4 ORD ERABLES [facility] [address] [place] [address] * MAGNESIUM (06/29/2023 4:41 EDT) Magnesium 2.3 1.7 - 2.8 mg/dL 06/29/2023 5:33 EDT [facility] Blood VENOUS BLOOD / Unknown Venipuncture / Unknown 06/29/2023 4:41 EDT 06/29/2023 4:44 EDT Love Ricks MD CHEMISTRY & BLOOD GA S ORDERABLES [facility] [address] [place] [address] * (ABNORMAL) PROTIME (06/29/2023 4:41 EDT) [facility] I.N.R. 2.2(H) 0.9 - 1.1 Ratio 06/29/2023 5:08 [facility] Pro Time 23.9(H) 9.7 - 12.8 secs 06/29/2023 5:08 EDT [facility] Blood VENOUS BLOOD / Unknown Venipuncture / Unknown 06/29/2023 4:41 EDT 06/29/2023 4:45 EDT Narrative [facility] - 06/29/2023 5:08 EDT Moderate Intensity Coumadin INR = 2.0-3.0 Adjustments in anticoagulant therapy dose should be based on the INR and NOT on the Protime. Khushi Young MD HEMATOLOGY & PF4 OR DERABLES [facility] [address], [place] [phone] * (ABNORMAL) COMPLETE BLOOD COUNT AND DIFFERENTIAL (06/29/2023 4:41 EDT) [facility] WBC 12.68(H) 4.00 - 10.40 K/cmm 06/29/2023 5:02 [facility] RBC 3.64(L) 4.36 - 5.78 M/cmm 06/29/2023 5:02 [facility] Hemoglobin 8.7(L) 13.8 - 17.3 g/dL 06/29/2023 5:02 [facility] HCT 26.3(L) 39.5 - 50.2 % 06/29/2023 5:02 [facility] MCV 72(L) 81 - 95 fL 06/29/2023 5:02 [facility] MCH 23.9(L) 27.6 - 33.0 pg 06/29/2023 5:02 [facility] Hypochromia 1+ 06/29/2023 5:02 [facility] MCHC 33.1 32.8 - 36.4 g/dL 06/29/2023 5:02 [facility] RDW-CV 20.7(H) <14.2 % 06/29/2023 5:02 [facility] RDW-SD 51.9(H) <46.0 fl 06/29/2023 5:02 [facility] Anisocytosis 2+ 06/29/2023 5:02 [facility] PLT 111(L) 141 - 377 K/cmm 06/29/2023 5:02 [facility] MPV 06/29/2023 5:02 [facility] [facility] Comment:Not Available Nucleated Red Blood Cells 1(H) <=0 /100WBC'S 06/29/2023 5:02 [facility] Blood VENOUS BLOOD / Unknown Venipuncture / Unknown 06/29/2023 4:41 EDT 06/29/2023 4:45 EDT Alec Rizo MD PACKAGES & DNA PROBE ORDERABLES [facility] [address], [place] [id number] * (ABNORMAL) COMPREHENSIVE METABOLIC PANEL (CMP) (06/29/2023 4:41 EDT) Sodium 138 136 - 145 mmol/L 06/29/2023 5:47 T [facility] Potassium 4.6 3.5 - 5.0 mmol/L 06/29/2023 5:47 [facility] Chloride 109 96 - 110 mmol/L 06/29/2023 5:47 T [facility] CO2 Total 18(L) 22 - 32 mmol/L 06/29/2023 5:47 T [facility] Glucose 74 70 - 99 mg/dl 06/29/2023 5:47 [facility] BUN 28(H) 10 - 26 mg/dL 06/29/2023 5:47 [facility] Creatinine 1.65(H) 0.66 - 1.25 mg/dL 06/29/2023 5:47 [facility] eGFR 45(L) >60 mL/min/1. 73m2 06/29/2023 5:47 [facility] Total Protein 5.2(L) 6.3 - 8.2 g/dL 06/29/2023 5:47 [facility] Albumin 2.1(L) 3.4 - 4.9 g/dL 06/29/2023 5:47 [facility] Alkaline Phosphatase 151(H) 38 - 126 U/L 06/29/2023 5:47 [facility] AST 1,190(H) 15 - 46 U/L 06/29/2023 5:47 [facility] ALT 927(H) <50 U/L 06/29/2023 5:47 [facility] Bilirubin, Total 5.6(H) <1.4 mg/dL 06/29/2023 5:47 [facility] Calcium 7.8(L) 8.5 - 10.5 mg/dL 06/29/2023 5:47 [facility] Albumin/Globulin Ratio 0.7(L) 1.0 - 2.5 06/29/2023 5:47 [facility] Anion Gap 11 5 - 14 mmol/L 06/29/2023 5:47 [facility] Blood VENOUS BLOOD / Unknown Venipuncture / Unknown 06/29/2023 4:41 EDT 06/29/2023 4:44 EDT Alec Rizo MD CHEMISTRY & BLOOD GA S ORDERABLES [facility] [address] [place] [address] * POCT GLUCOSE, INTERFACED (06/29/2023 4:18 EDT) Glucose, POC 78 70 - 100 mg/dL 06/29/2023 4:20 EDT [facility] HN LAB POC COMMENT (GLUCOSE) Test Performed by Nursing Services 06/29/2023 4:20 EDT [facility] Blood CAPILLARY BLOOD / Unknown 06/29/2023 4:18 EDT 06/29/2023 4:20 EDT Love Ricks MD POINT OF CARE TEST O RDERABLES [facility] [address] [place] [address] * XR FEEDING TUBE PLACEMENT (06/29/2023 0:22 EDT) Anatomical Region Laterality Modality Abdomen Computed Radiogr aphy 06/29/2023 9:22 EDT Impressions 06/29/2023 9:22 EDT Findings/Impression: Portable AP view centered over the lower chest upper abdomen demonstrates that the transesophageal tube tip projects over the body of the stomach. A sump tube is also seen in the body of the stomach. Dense material in the stomach. Lobar atelectasis in the incompletely imaged right lung base and subsegmental atelectasis on the left. This is neither a complete view of the chest nor of the abdomen. ??If either view is needed, formal films are recommended. I have personally reviewed the images and the above interpretation and agree with the findings. [id number] Narrative 06/29/2023 9:22 EDT XR FEEDING TUBE PLACEMENT ??06/29/2023 12:07 AM Signs and Symptoms/Comments: NGT placement verification; Comparison: CT chest abdomen pelvis 06/25/2023. Procedure Note Ruben Stack MD - 06/29/2023 XR FEEDING TUBE PLACEMENT 06/29/2023 12:07 AM Signs and Symptoms/Comments: NGT placement verification; Comparison: CT chest abdomen pelvis 06/25/2023. IMPRESSION Findings/Impression: Portable AP view centered over the lower chest upper abdomen demonstratesthat the transesophageal tube tip projects over the body of the stomach. Asump tube is also seen in the body of the stomach. Dense material in the stomach. Lobar atelectasis in the incompletelyimaged right lung base and subsegmental atelectasis on the left. This is neither a complete view of the chest nor of the abdomen. Ifeither view is needed, formal films are recommended. I have personally reviewed the images and the above interpretation andagree with the findings. [id number] Percy Teresa MD IMG DIAGNOSTIC I MAGING ORDERABLES * HEPARIN LEVEL - UNFRACTIONATED HEPARIN (06/28/2023 23:49 EDT) Heparin Level-UFH 0.24 Therapeutic Range: 0.30 - 0.70 IU/mL 06/29/2023 0:52 EDT [facility] Comment: Unfractionated heparin therapeutic range = 0.3-0.7 IU/ml - This test is not intended for monitoring direct Xa inhibitors, direct thrombin inhibitors, or fondaparinux.- Exogenous ATIII is NOT supplied in this assay. For unexpected or persistently low levels, consider measuring patient's ATIII level. Results will be overestimated in the presence of direct Xa inhibitors (rivaroxaban, apixaban, edoxaban). Sample retested, result confirmed. Blood VENOUS BLOOD / Unknown Venipuncture / Unknown 06/28/2023 23:49 EDT 06/29/2023 0:07 EDT Wandy Piper MD HEMATOLOGY & PF 4 ORDERABLES [facility] [address] [place] [address] * MAGNESIUM (06/28/2023 23:48 EDT) Magnesium 1.7 1.7 - 2.8 mg/dL 06/29/2023 0:39 EDT [facility] Blood VENOUS BLOOD / Unknown Venipuncture / Unknown 06/28/2023 23:48 EDT 06/28/2023 23:55 EDT Love Ricks MD CHEMISTRY & BLOOD GA S ORDERABLES [facility] [address] [place] [address] * (ABNORMAL) ELECTROLYTES (06/28/2023 23:48 EDT) Sodium 138 136 - 145 mmol/L 06/29/2023 0:39 EDT [facility] Potassium 4.2 3.5 - 5.0 mmol/L 06/29/2023 0:39 EDT [facility] Chloride 110 96 - 110 mmol/L 06/29/2023 0:39 EDT [facility] CO2 Total 18(L) 22 - 32 mmol/L 06/29/2023 0:39 EDT [facility] Anion Gap 10 5 - 14 mmol/L 06/29/2023 0:39 EDT [facility] Blood VENOUS BLOOD / Unknown Venipuncture / Unknown 06/28/2023 23:48 EDT 06/28/2023 23:55 EDT Khushi Young MD CHEMISTRY & BLOOD G ORDERABLES Performing Organization Address City/[facility]/ZIP Co de Phone Number [facility] [address] [place] [address] * PHOSPHORUS (06/28/2023 23:48 EDT) Phosphorus 3.8 2.5 - 4.5 mg/dL 06/29/2023 0:39 EDT [facility] Blood VENOUS BLOOD / Unknown Venipuncture / Unknown 06/28/2023 23:48 EDT 06/28/2023 23:55 EDT Wandy Piper MD CHEMISTRY & BLO OD GAS ORDERABLES [facility] [address] [place] [address] * POCT GLUCOSE, INTERFACED (06/28/2023 23:46 EDT) Glucose, POC 94 70 - 100 mg/dL 06/28/2023 23:48 EDT [facility] HN LAB POC COMMENT (GLUCOSE) Test Performed by Nursing Services 06/28/2023 23:48 EDT [facility] Blood CAPILLARY BLOOD / Unknown 06/28/2023 23:46 EDT 06/28/2023 23:48 EDT Charanjit Taylor MD POINT OF CARE TEST O SEAN Performing Organization Address City/[facility]/ZIP Co de Phone Number [facility] [address] [place] [address] * POCT GLUCOSE, INTERFACED (06/28/2023 23:18 EDT) Glucose, POC 74 70 - 100 mg/dL 06/28/2023 23:18 EDT [facility] HN LAB POC COMMENT (GLUCOSE) Test Performed by Nursing Services 06/28/2023 23:18 EDT [facility] Blood CAPILLARY BLOOD / Unknown 06/28/2023 23:18 EDT 06/28/2023 23:18 EDT Charanjit Taylor MD POINT OF CARE TEST O SEAN Performing Organization Address City/[facility]/ZIP Co de Phone Number [facility] [address] [place] [address] * (ABNORMAL) POCT GLUCOSE, INTERFACED (06/28/2023 22:52 EDT) Glucose, POC 57(L) 70 - 100 mg/dL 06/28/2023 22:53 EDT [facility] HN LAB POC COMMENT (GLUCOSE) Test Performed by Nursing Services 06/28/2023 22:53 EDT [facility] Blood CAPILLARY BLOOD / Unknown 06/28/2023 22:52 EDT 06/28/2023 22:53 EDT Love Ricks MD POINT OF CARE TEST O RDERABLES [facility] [address], [place] [address] * POCT GLUCOSE, INTERFACED (06/28/2023 18:05 EDT) Glucose, POC 77 70 - 100 mg/dL 06/28/2023 18:06 EDT [facility] HN LAB POC COMMENT (GLUCOSE) Test Performed by Nursing Services 06/28/2023 18:06 EDT [facility] Blood CAPILLARY BLOOD / Unknown 06/28/2023 18:05 EDT 06/28/2023 18:06 EDT Khushi Young MD POINT OF CARE TEST ORDERABLES Performing Organization Address [facility]/ZIP Co de Phone Number [facility] [address] [place] [address] * TSH (06/28/2023 17:52 EDT) [facility] TSH 2.58 0.47 - 4.68 mIU/L 06/28/2023 22:16 EDT [facility] Blood VENOUS BLOOD / Unknown Venipuncture / Unknown 06/28/2023 17:52 EDT 06/28/2023 18:05 EDT Narrative [facility] - 06/28/2023 22:16 EDT The results of this assay can be falsely lowered due to the consumption of Biotin. Kael Denny MD CHEMISTRY & BLOOD GA S ORDERABLES Performing Organization Address City/[facility]/ZIP Co de Phone Number [facility] [address], [place] [id number] * MAGNESIUM (06/28/2023 17:52 EDT) [facility] Magnesium 1.8 1.7 - 2.8 mg/dL 06/28/2023 18:46 EDT [facility] Blood VENOUS BLOOD / Unknown Venipuncture / Unknown 06/28/2023 17:52 EDT 06/28/2023 18:05 EDT Love Ricks MD CHEMISTRY & BLOOD GA S ORDERABLES Performing Organization Address [facility] Co de Phone Number [facility] [address] [place] [address] * (ABNORMAL) ELECTROLYTES (06/28/2023 17:52 EDT) Pathologist [facility] Sodium 136 136 - 145 mmol/L 06/28/2023 18:46 EDT [facility] Potassium 4.3 3.5 - 5.0 mmol/L 06/28/2023 18:46 EDT [facility] Chloride 110 96 - 110 mmol/L 06/28/2023 18:46 EDT [facility] CO2 Total 20(L) 22 - 32 mmol/L 06/28/2023 18:46 EDT [facility] Anion Gap 6 5 - 14 mmol/L 06/28/2023 18:46 EDT [facility] Blood VENOUS BLOOD / Unknown Venipuncture / Unknown 06/28/2023 17:52 EDT 06/28/2023 18:05 EDT Khushi Young MD CHEMISTRY & BLOOD G ORDERABLES Performing Organization Address [facility] Co de Phone Number [facility] [address] [place] [address] * MR HEAD WO CONTRAST (06/28/2023 17:21 EDT) Anatomical Region Laterality Modality Head Magnetic Resonan ce 06/29/2023 10:5 7 EDT Impressions 06/29/2023 10:57 EDT 1. No MRI evidence of anoxic or hypoglycemic brain injury. 2. Mild restricted diffusion, T1 hypointensity, and FLAIR hyperintensity throughout the majority of the calvarium, findings which could represent an infiltrative marrow process. A dedicated nuclear medicine bone scan scan is recommended for further characterization and to assess for other areas of involvement. I have personally reviewed the images and the above interpretation and agree with the findings. [id number] Narrative 06/29/2023 10:57 EDT EXAM: MRI HEAD WO CONTRAST HISTORY: Concern for anoxic/hypoglycemic brain injury; TECHNIQUE: MRI head without contrast. Structured report code: [id number] COMPARISON: Head CT 06/25/2023. FINDINGS: Motion degraded exam requiring the use of fast scan/thick slices. PARENCHYMA: No evidence of infarction. No parenchymal hemorrhage. No mass or shift of structures across the midline. Mild diffuse parenchymal volume loss. Patchy foci of T2/FLAIR hyperintensity within the supratentorial white matter are nonspecific but typically reflect the sequela of chronic microangiopathy. EXTRA-AXIAL SPACES: No extra-axial collection. No extra-axial mass. VENTRICLES: No hydrocephalus. VESSELS: The flow voids are normal. Developmental venous anomaly within the posterior right frontal lobe. BONES: Mild restricted diffusion, T1 hypointensity, and FLAIR hyperintensity throughout the majority of the calvarium. ORBITS: No significant abnormality. Bilateral lens replacements. PARANASAL SINUSES/MASTOID AIR CELLS: Redemonstrated mural thickening throughout the paranasal sinuses with fluid levels within the left maxillary sinus and nasopharynx. Some of these are intrinsically T1 hyperintense compatible with proteinaceous material. Small volume fluid within mastoid air cells bilaterally. EXTRACRANIAL SOFT TISSUES: Unremarkable. Procedure Note Lisa Yoo MD - 06/29/2023 EXAM: MRI HEAD WO CONTRAST HISTORY: Concern for anoxic/hypoglycemic brain injury; TECHNIQUE: MRI head without contrast. Structured report code: [id number] COMPARISON: Head CT 06/25/2023. FINDINGS: Motion degraded exam requiring the use of fast scan/thick slices. PARENCHYMA: No evidence of infarction. No parenchymal hemorrhage. No mass or shift ofstructures across the midline. Mild diffuse parenchymal volume loss.Patchy foci of T2/FLAIR hyperintensity within the supratentorial whitematter are nonspecific but typically reflect the sequela of chronicmicroangiopathy. EXTRA-AXIAL SPACES: No extra-axial collection. No extra-axial mass. VENTRICLES: No hydrocephalus. VESSELS: The flow voids are normal. Developmental venous anomaly within theposterior right frontal lobe. BONES: Mild restricted diffusion, T1 hypointensity, and FLAIR hyperintensitythroughout the majority of the calvarium. ORBITS: No significant abnormality. Bilateral lens replacements. PARANASAL SINUSES/MASTOID AIR CELLS: Redemonstrated mural thickening throughout the paranasal sinuses withfluid levels within the left maxillary sinus and nasopharynx. Some ofthese are intrinsically T1 hyperintense compatible with proteinaceousmaterial. Small volume fluid within mastoid air cells bilaterally. EXTRACRANIAL SOFT TISSUES: Unremarkable. IMPRESSION 1. No MRI evidence of anoxic or hypoglycemic brain injury. 2. Mild restricted diffusion, T1 hypointensity, and FLAIR hyperintensitythroughout the majority of the calvarium, findings which could representan infiltrative marrow process. A dedicated nuclear medicine bone scanscan is recommended for further characterization and to assess for otherareas of involvement. I have personally reviewed the images and the above interpretation andagree with the findings. [id number] Khushi Young MD IMG MRI ORDERABLES * POCT GLUCOSE, INTERFACED (06/28/2023 12:00 EDT) Glucose, POC 89 70 - 100 mg/dL 06/28/2023 12:01 EDT [facility] HN LAB POC COMMENT (GLUCOSE) Test Performed by Nursing Services 06/28/2023 12:01 EDT [facility] Blood CAPILLARY BLOOD / Unknown 06/28/2023 12:00 EDT 06/28/2023 12:01 EDT Khushi Young MD POINT OF CARE TEST ORDERABLES [facility] [address] [place] [address] * MAGNESIUM (06/28/2023 11:57 EDT) Magnesium 1.8 1.7 - 2.8 mg/dL 06/28/2023 14:36 EDT [facility] Blood VENOUS BLOOD / Unknown Venipuncture / Unknown 06/28/2023 11:57 EDT 06/28/2023 12:04 EDT Love Ricks MD CHEMISTRY & BLOOD GA S ORDERABLES [facility] [address] [place] [address] * (ABNORMAL) ELECTROLYTES (06/28/2023 11:57 EDT) Pathologist [facility] Sodium 139 136 - 145 mmol/L 06/28/2023 12:45 EDT [facility] Potassium 3.9 3.5 - 5.0 mmol/L 06/28/2023 12:45 EDT [facility] Chloride 110 96 - 110 mmol/L 06/28/2023 12:45 EDT [facility] CO2 Total 20(L) 22 - 32 mmol/L 06/28/2023 12:45 EDT [facility] Anion Gap 9 5 - 14 mmol/L 06/28/2023 12:45 EDT [facility] Blood VENOUS BLOOD / Unknown Venipuncture / Unknown 06/28/2023 11:57 EDT 06/28/2023 12:04 EDT Khushi Young MD CHEMISTRY & BLOOD G ORDERABLES Performing Organization Address City/[facility]/ZIP Co de Phone Number [facility] [address] [place] [address] * TRANSTHORACIC ECHO (TTE) LIMITED W/DOPPLER W/CF W/ CONTRAST (06/28/2023 9:28 EDT) Triscuspid Valve Regurgitation Peak Gradient 28.7 mmHg [facility] LV Diastolic Volume 154 mL [facility] Systolic Volume 51 mL [facility] TR Peak Max 2.7 m/s [facility] PO INT [facility] CARE LV ID, ES, PLAX 3.5 2.1 - 4.0 cm [facility] LV PW thickness, ED, PLAX 1.1 0.6 - 1.1 cm [facility] LV ID, ED, PLAX 5.6 3.5 - 6.0 cm [facility] LVIDD BY MMODE 5.6 cm [facility] Interventricular Septum to Posterior Wall Thickness Ratio 1.5 [facility] P OINT OF CARE IVS thickness, ED, PLAX 1.1 cm [facility] Anatomical Region Laterality Modality Ultrasound Narrative 06/28/2023 10:11 EDT ?Left??Ventricle: The left ventricular cavity was normal in size. Left ventricular systolic function was moderately decreased with an ejection fraction of 40%. Left ventricular wall thickness was normal. There was diffuse hypokinesis. The patient was in rapid atrial fibrillation throughout the study. This rhythm could contribute to the overall reduced EF ?Right??Ventricle: The right ventricular cavity was mildly dilated in size. Right ventricular systolic function was low normal. Left Ventricle The left ventricular cavity was normal in size. Left ventricular systolic function was moderately decreased with an ejection fraction of 40%. The study is not technically sufficient to allow evaluation of left ventricular diastolic function. Left ventricular wall thickness was normal. There was diffuse hypokinesis. No left ventricular thrombus was seen. The patient was in rapid atrial fibrillation throughout the study. This rhythm could contribute to the overall reduced EF Right Ventricle The right ventricular cavity was mildly dilated in size. Right ventricular systolic function was low normal. Catheter present in the right ventricle. Left Atrium Left atrial cavity was severely dilated. Right Atrium Right atrial cavity was severely dilated. A catheter was present in the right atrium. There was a likely prominent Chiari network along the septum of the RA. IVC/SVC The inferior vena cava was mildly dilated. Mechanically ventilated; cannot use inferior caval vein diameter to estimate central venous pressure. Tricuspid Valve There was mild tricuspid valve regurgitation. Pericardium There was no significant pericardial effusion. Pulmonic Artery Pulmonary systolic pressure was estimated to be 30 mmHg. Study Details The study was interpreted by [facility]. Pertinent images and digital data are archived for permanent storage and are available for subsequent review. Scanning was performed from the apical, parasternal, subcostal and suprasternal acoustic windows. Definity contrast was used during the study. Overall the study quality was adequate. The study was difficult due to patient clinical status. Images were obtained using cardiac ultrasound machine [employer].ie[employer] #[email or web address]. Khushi Young MD CARDIAC ECHO ORDERA BLES * POCT GLUCOSE, INTERFACED (06/28/2023 5:39 EDT) [facility] Glucose, POC 89 70 - 100 mg/dL 06/28/2023 5:40 EDT [facility] HN LAB POC COMMENT (GLUCOSE) Test Performed by Nursing Services 06/28/2023 5:40 EDT [facility] Blood CAPILLARY BLOOD / Unknown 06/28/2023 5:39 EDT 06/28/2023 5:39 EDT Khushi Young MD POINT OF CARE TEST ORDERABLES Performing Organization Address [facility] Co de Phone Number [facility] [address] [place] [address] * HCV RNA DETECT QUANT (06/28/2023 5:36 EDT) [facility] HCV RNA Qualitative Undetected Undetected 06/29/2023 10:47 EDT [facility] Blood VENOUS BLOOD / Unknown Venipuncture / Unknown 06/28/2023 5:36 EDT 06/28/2023 5:40 EDT Narrative [facility] - 06/29/2023 10:47 EDT The quantification range of this assay is 15 IU/mL to 100,000,000 IU/mL. Testing was performed using the Kendy HCV test ([employer] with the [id number] System. Charanjit Taylor MD CHEMISTRY & BLOOD GA S ORDERABLES Performing Organization Address City/[facility]/ZIP Co de Phone Number [facility] [address] [place] [address] * (ABNORMAL) DIALYSIS HEPATITIS- DIALYSIS USE ONLY (06/28/2023 5:36 EDT) [facility] Hep B Surface Ag Negative Negative 06/28/19 10:09 EDT [facility] Hep B Surface Ab, Quantitative 138.6 See Note mIU/mL 06/28/2023 10:09 EDT [facility] Comment: Reference Range for Hep B Surface Ab, Quant: Positive: >= 10.0 mIU/mL Negative: ??< 10.0 mIU/mL Patient is presumed to be immune to infection with Hepatitis B Virus. Hep B Surface Ab, Qualitative Positive See Note 06/28/2023 10:09 EDT [facility] Comment: Reference Range for Hep B Surface Ab, Qual: Unvaccinated: ??Negative Vaccinated: ??Positive Hepatitis B Core Ab, Total Positive(A) Negative 06/28/2023 10:09 EDT [facility] Hep C Antibody Reactive(A) Negative 10:09 T [facility] Comment: Supplemental testing for HCV RNA is ordered to rule out active HCV infection. Blood VENOUS BLOOD / Unknown Venipuncture / Unknown 06/28/2023 5:36 EDT 06/28/2023 5:40 EDT Charanjit Taylor MD CHEMISTRY & BLOOD GA S ORDERABLES Performing Organization Address City/[facility]/ZIP Co de Phone Number [facility] [address] [place] [address] * HN LAB CBC SMEAR REVIEW (06/28/2023 5:36 EDT) Pathologist [facility] Differential Comment Slide was examined by a technologist to verify the WBC and/or platelet count. 06/28/2023 6:08 EDT [facility] Blood VENOUS BLOOD / Unknown Venipuncture / Unknown 06/28/2023 5:36 EDT 06/28/2023 5:40 EDT Alec Rizo MD HEMATOLOGY & PF4 ORD ERABLES Performing Organization Address City/[facility]/ZIP Co de Phone Number [facility] [address] [place] [address] * HEPARIN LEVEL - UNFRACTIONATED HEPARIN (06/28/2023 5:36 EDT) Heparin Level-UFH 0.28 Therapeutic Range: 0.30 - 0.70 IU/mL 06/28/2023 6:03 EDT [facility] Comment: Unfractionated heparin therapeutic range = 0.3-0.7 IU/ml - This test is not intended for monitoring direct Xa inhibitors, direct thrombin inhibitors, or fondaparinux.- Exogenous ATIII is NOT supplied in this assay. For unexpected or persistently low levels, consider measuring patient's ATIII level. Results will be overestimated in the presence of direct Xa inhibitors (rivaroxaban, apixaban, edoxaban). Sample retested, result confirmed Blood VENOUS BLOOD / Unknown Venipuncture / Unknown 06/28/2023 5:36 EDT 06/28/2023 5:41 EDT Wandy Piper MD HEMATOLOGY & PF 4 ORDERABLES Performing Organization Address [facility] Co de Phone Number [facility] [address] [place] [phone] * (ABNORMAL) PROTIME (06/28/2023 5:36 EDT) [facility] I.N.R. 2.8(H) 0.9 - 1.1 Ratio 06/28/2023 5:59 EDT [facility] Pro Time 31.1(H) 9.7 - 12.8 secs 06/28/2023 5:59 EDT [facility] Blood VENOUS BLOOD / Unknown Venipuncture / Unknown 06/28/2023 5:36 EDT 06/28/2023 5:41 EDT Narrative [facility] - 06/28/2023 5:59 EDT Moderate Intensity Coumadin INR = 2.0-3.0 Adjustments in anticoagulant therapy dose should be based on the INR and NOT on the Protime. Khushi Young MD HEMATOLOGY & PF4 OR DERABLES Performing Organization Address [facility]/ZIP Co de Phone Number [facility] [address] [place] [phone] * (ABNORMAL) COMPLETE BLOOD COUNT AND DIFFERENTIAL (06/28/2023 5:36 EDT) WBC 13.39(H) 4.00 - 10.40 K/cmm 06/28/2023 6:08 [facility] RBC 3.54(L) 4.36 - 5.78 M/cmm 06/28/2023 6:08 [facility] Hemoglobin 8.6(L) 13.8 - 17.3 g/dL 06/28/2023 6:08 [facility] HCT 26.1(L) 39.5 - 50.2 % 06/28/2023 6:08 [facility] MCV 74(L) 81 - 95 fL 06/28/2023 6:08 [facility] MCH 24.3(L) 27.6 - 33.0 pg 06/28/2023 6:08 [facility] Hypochromia 1+ 06/28/2023 6:08 [facility] MCHC 33.0 32.8 - 36.4 g/dL 06/28/2023 6:08 [facility] RDW-CV 20.3(H) <14.2 % 06/28/2023 6:08 [facility] RDW-SD 52.9(H) <46.0 fl 06/28/2023 6:08 [facility] Anisocytosis 2+ 06/28/2023 6:08 [facility] PLT 93(L) 141 - 377 K/cmm 06/28/2023 6:08 [facility] MPV 06/28/2023 6:08 [facility] Comment:Not Available Nucleated Red Blood Cells 2(H) <=0 /100WBC'S 06/28/2023 6:08 [facility] % Neutrophils 83.1 % 06/28/2023 6:08 [facility] % Lymphocytes 6.7 % 06/28/2023 6:08 [facility] % Monocytes 8.7 % 06/28/2023 6:08 [facility] % Eosinophils 0.7 % 06/28/2023 6:08 [facility] % Basophils 0.1 % 06/28/2023 6:08 [facility] % Immature Grans 0.7 % 06/28/19 6:08 [facility] Absolute Neutrophils 11.12(H) 2.20 - 8.85 K/cmm 06/28/2023 6:08 [facility] Absolute Lymphocytes 0.90(L) 1.09 - 3.30 K/cmm 06/28/2023 6:08 [facility] Absolute Monocytes 1.17(H) 0.10 - 0.80 K/cmm 06/28/2023 6:08 [facility] Absolute Eosinophils 0.09 0.03 - 0.61 K/cmm 06/28/2023 6:08 [facility] ABS Basophils 0.01 0.01 - 0.11 K/cmm 06/28/2023 6:08 [facility] Absolute Immature Grans 0.10(H) 0.00 - 0.06 K/cmm 06/28/2023 6:08 [facility] Type of Differential: Auto 06/28/2023 6:08 [facility] Blood VENOUS BLOOD / Unknown Venipuncture / Unknown 06/28/2023 5:36 EDT 06/28/2023 5:40 EDT Alec Rizo MD PACKAGES & DNA PROBE ORDERABLES [facility] [address] [place] [address] * (ABNORMAL) COMPREHENSIVE METABOLIC PANEL (CMP) (06/28/2023 5:36 EDT) Sodium 140 136 - 145 mmol/L 06/28/2023 7:23 T [facility] Potassium 3.9 3.5 - 5.0 mmol/L 06/28/2023 7:23 [facility] Chloride 111(H) 96 - 110 mmol/L 06/28/2023 7:23 [facility] CO2 Total 18(L) 22 - 32 mmol/L 06/28/2023 7:23 [facility] Glucose 91 70 - 99 mg/dl 06/28/2023 7:23 [facility] BUN 7(L) 10 - 26 mg/dL 06/28/2023 7:23 [facility] Creatinine 0.51(L) 0.66 - 1.25 mg/dL 06/28/2023 7:23 [facility] eGFR 110 >60 mL/min/1. 73m2 06/28/2023 7:23 [facility] Total Protein 5.5(L) 6.3 - 8.2 g/dL 06/28/2023 7:23 [facility] Albumin 2.4(L) 3.4 - 4.9 g/dL 06/28/2023 7:23 [facility] Alkaline Phosphatase 172(H) 38 - 126 U/L 06/28/2023 7:23 [facility] AST 2,788(H) 15 - 46 U/L 06/28/2023 7:23 [facility] ALT 1,486(H) <50 U/L 06/28/2023 7:23 [facility] Bilirubin, Total 5.1(H) <1.4 mg/dL 06/28/2023 7:23 [facility] Calcium 7.6(L) 8.5 - 10.5 mg/dL 06/28/2023 7:23 [facility] Albumin/Globulin Ratio 0.8(L) 1.0 - 2.5 06/28/2023 7:23 [facility] Anion Gap 11 5 - 14 mmol/L 06/28/2023 7:23 [facility] Blood VENOUS BLOOD / Unknown Venipuncture / Unknown 06/28/2023 5:36 EDT 06/28/2023 5:40 EDT Alec Rizo MD CHEMISTRY & BLOOD GA S ORDERABLES Performing Organization Address City/[facility]/ZIP Co de Phone Number [facility] [address], [place] [phone] * PHOSPHORUS (06/28/2023 5:36 EDT) Phosphorus 2.7 2.5 - 4.5 mg/dL 06/28/2023 6:18 EDT [facility] Blood VENOUS BLOOD / Unknown Venipuncture / Unknown 06/28/2023 5:36 EDT 06/28/2023 5:40 EDT Khushi Young MD CHEMISTRY & BLOOD G ORDERABLES Performing Organization Address [facility]/ZIP Co de Phone Number [facility] [address] [place] [address] * (ABNORMAL) MAGNESIUM (06/28/2023 5:36 EDT) Pathologist [facility] Magnesium 1.6(L) 1.7 - 2.8 mg/dL 06/28/2023 6:18 EDT [facility] Blood VENOUS BLOOD / Unknown Venipuncture / Unknown 06/28/2023 5:36 EDT 06/28/2023 5:40 EDT Khushi Young MD CHEMISTRY & BLOOD G ORDERABLES Performing Organization Address City/[facility]/ZIP Co de Phone Number [facility] [address] [place] [address] * HEPARIN LEVEL - UNFRACTIONATED HEPARIN (06/27/2023 23:58 EDT) Heparin Level-UFH 0.28 Therapeutic Range: 0.30 - 0.70 IU/mL 06/28/2023 0:44 EDT [facility] Comment:Unfractionated hepar in therapeutic range = 0.3-0.7 IU/ml - This test is not intended for monitoring direct Xa inhibitors, direct thrombin inhibitors, or fondaparinux.- Exogenous ATIII is NOT supplied in this assay. For unexpected or persistently low levels, consider measuring patient's ATIII level. Results will be overestimated in the presence of direct Xa inhibitors (rivaroxaban, apixaban, edoxaban). Blood VENOUS BLOOD / Unknown Venipuncture / Unknown 06/27/2023 23:58 EDT 06/28/2023 0:14 EDT Wandy Piper MD HEMATOLOGY & PF 4 ORDERABLES Performing Organization Address [facility]/ZIP Co de Phone Number [facility] [address] [place] [address] * (ABNORMAL) ELECTROLYTES (06/27/2023 23:58 EDT) Sodium 139 136 - 145 mmol/L 06/28/2023 0:33 EDT [facility] Potassium 4.2 3.5 - 5.0 mmol/L 06/28/2023 0:33 EDT [facility] Chloride 112(H) 96 - 110 mmol/L 06/28/2023 0:33 EDT [facility] CO2 Total 18(L) 22 - 32 mmol/L 06/28/2023 0:33 EDT [facility] Anion Gap 9 5 - 14 mmol/L 06/28/2023 0:33 EDT [facility] Blood VENOUS BLOOD / Unknown Venipuncture / Unknown 06/27/2023 23:58 EDT 06/28/2023 0:03 EDT Khushi Young MD CHEMISTRY & BLOOD G ORDERABLES Performing Organization Address [facility]/ZIP Co de Phone Number [facility] [address] [place] [phone] * POCT GLUCOSE, INTERFACED (06/27/2023 23:58 EDT) Glucose, POC 100 70 - 100 mg/dL 06/27/2023 23:59 EDT [facility] HN LAB POC COMMENT (GLUCOSE) Test Performed by Nursing Services 06/27/2023 23:59 EDT [facility] Blood CAPILLARY BLOOD / Unknown 06/27/2023 23:58 EDT 06/27/2023 23:59 EDT Khushi Young MD POINT OF CARE TEST ORDERABLES Performing Organization Address City/[facility]/ZIP Co de Phone Number [facility] [address], [place] [phone] * (ABNORMAL) POCT GLUCOSE, INTERFACED (06/27/2023 18:58 EDT) Glucose, POC 108(H) 70 - 100 mg/dL 06/27/2023 19:00 EDT [facility] HN LAB POC COMMENT (GLUCOSE) Test Performed by Nursing Services 06/27/2023 19:00 EDT [facility] Blood CAPILLARY BLOOD / Unknown 06/27/2023 18:58 EDT 06/27/2023 19:00 EDT Khushi Young MD POINT OF CARE TEST ORDERABLES Performing Organization Address City/[facility]/ZIP Co de Phone Number [facility] [address] [place] [phone] * HEPARIN LEVEL - UNFRACTIONATED HEPARIN (06/27/2023 18:57 EDT) Heparin Level-UFH 0.29 Therapeutic Range: 0.30 - 0.70 IU/mL 06/27/2023 19:51 EDT [facility] Comment:Unfractionated hepar in therapeutic range = 0.3-0.7 IU/ml - This test is not intended for monitoring direct Xa inhibitors, direct thrombin inhibitors, or fondaparinux.- Exogenous ATIII is NOT supplied in this assay. For unexpected or persistently low levels, consider measuring patient's ATIII level. Results will be overestimated in the presence of direct Xa inhibitors (rivaroxaban, apixaban, edoxaban). Blood VENOUS BLOOD / Unknown Venipuncture / Unknown 06/27/2023 18:57 EDT 06/27/2023 19:10 EDT Narrative [facility] - 06/27/2023 19:51 EDT Sample retested, result confirmed Wandy Piper MD HEMATOLOGY & PF 4 ORDERABLES Performing Organization Address [facility]/ZIP Co de Phone Number [facility] [address] [place] [address] * (ABNORMAL) ELECTROLYTES (06/27/2023 18:57 EDT) Sodium 138 136 - 145 mmol/L 06/27/2023 19:40 EDT [facility] Potassium 4.1 3.5 - 5.0 mmol/L 06/27/2023 19:40 EDT [facility] Chloride 111(H) 96 - 110 mmol/L 06/27/2023 19:40 EDT [facility] CO2 Total 19(L) 22 - 32 mmol/L 06/27/2023 19:40 EDT [facility] Anion Gap 8 5 - 14 mmol/L 06/27/2023 19:40 EDT [facility] Blood VENOUS BLOOD / Unknown Venipuncture / Unknown 06/27/2023 18:57 EDT 06/27/2023 19:03 EDT Khushi Young MD CHEMISTRY & BLOOD G ORDERABLES Performing Organization Address City/[facility]/ZIP Co de Phone Number [facility] [address] [place] [address] * PHOSPHORUS (06/27/2023 18:57 EDT) Phosphorus 2.6 2.5 - 4.5 mg/dL 06/27/2023 19:40 EDT [facility] Blood VENOUS BLOOD / Unknown Venipuncture / Unknown 06/27/2023 18:57 EDT 06/27/2023 19:03 EDT Khushi Young MD CHEMISTRY & BLOOD G ORDERABLES [facility] [address] [place] [address] * POCT US ED CARDIAC (06/27/2023 18:23 EDT) Anatomical Region Laterality Modality Other 06/27/2023 18:2 3 EDT Narrative 06/27/2023 18:59 EDT Study Date and Time: 2023-06-27 18:23 Study Author: Charanjit Taylor ADITYA Cardiac TTE POCUS UVN: Indication(s) for Exam: ?The exam was performed with the following indications:: Hypotension ?Other indications(s):: N/A Views Obtained & Images Saved: ?Select all that apply:: Parasternal [place] (PLAX), Parasternal [place] (PSAX), Subxiphoid, Apical 4-chamber, IVC ?Other views obtained & saved:: N/A ?Thoracic views obtained & saved:: N/A Findings: ?Pericardial effusion: None ?Other pericardial findings:: N/A ?Global Cardiac Activity: Globally Reduced ?Other global cardiac findings:: N/A ?LV Function: Depressed (30 - 50% LVEF) ?Other LV Function findings:: LVEF is improved from prior now about 30-35% by visual assessment ?Signs of RV Strain: ?Other RV Function findings:: The RV is dilated, there is TR, the TAPSE is ~ 18 mm ?IVC collapsibility: Plethoric ?Other IVC Findings:: N/A ?Pulmonary Findings: N/A ?Other Pulmonary findings: N/A Interpretation: ?Cardiac Interpretation: Diminished LV function ?Other cardiac interpretation:: LVEF is reduced but improved from prior, visual estimate of 30-35% ?Pulmonary Interpretation: N/A ?Other Pulmonary Interpretation:: N/A ?Did the information from this ultrasound affect your patient management?: Yes Confirmatory Findings: ?What confirmatory study was performed?: No additional study ordered ?Confirmatory study findings/comments:: N/A Signed by Charanjit BURGESS on 2023-06-27 18:59 Procedure Note Charanjit Taylor MD - 06/27/2023 Study Date and Time: 2023-06-27 18:23 Study Author: Charanjit BURGESS Cardiac TTE POCUS [facility]: Indication(s) for Exam: The exam was performed with the following indications:: Hypotension Other indications(s):: N/A Views Obtained & Images Saved: Select all that apply:: Parasternal [place] (PLAX), ParasternalShort [place] (PSAX), Subxiphoid, Apical 4-chamber, IVC Other views obtained & saved:: N/A Thoracic views obtained & saved:: N/A Findings: Pericardial effusion: None Other pericardial findings:: N/A Global Cardiac Activity: Globally Reduced Other global cardiac findings:: N/A LV Function: Depressed (30 - 50% LVEF) Other LV Function findings:: LVEF is improved from prior now -98% by visual assessment Signs of RV Strain: Other RV Function findings:: The RV is dilated, there is TR, the TAPSEis ~ 18 mm IVC collapsibility: Plethoric Other IVC Findings:: N/A Pulmonary Findings: N/A Other Pulmonary findings: N/A Interpretation: Cardiac Interpretation: Diminished LV function Other cardiac interpretation:: LVEF is reduced but improved fromprior, visual estimate of 30-35% Pulmonary Interpretation: N/A Other Pulmonary Interpretation:: N/A Did the information from this ultrasound affect your patientmanagement?: Yes Confirmatory Findings: What confirmatory study was performed?: No additional study ordered Confirmatory study findings/comments:: N/A Signed by Charanjit BURGESS on 2023-06-27 18:59 Charanjit Taylor MD IMG POCT US ORDERABL ES * TRANSFUSE RED BLOOD CELLS (06/27/2023 15:22 EDT) Blood Alec Rizo MD NURSING TREATMENT - BLOOD ADMINISTRATION * TRANSFUSE RED BLOOD CELLS (06/27/2023 15:22 EDT) Blood Alec Rizo MD NURSING TREATMENT - BLOOD ADMINISTRATION * (ABNORMAL) BLOOD GASES, VENOUS (06/27/2023 15:02 EDT) pH, Venous 7.37 7.31 - 7.41 06/27/2023 15:19 EDT [facility] pCO2, Venous 28(L) 41 - 51 mmHg 06/27/2023 15:19 [facility] pO2, Venous 39 30 - 50 mmHg 06/27/2023 15:19 [facility] tCO2, Venous 17(L) 22 - 28 mmol/L 06/27/2023 15:19 [facility] Temperature 36.9 C 06/27/2023 15:19 [facility] O2 Saturation, Venous 72 60 - 85 % 06/27/2023 15:19 [facility] Oxygen Therapy (FIO2) 40.0 % 06/27/2023 15:19 [facility] Base Level -8.20(L) -2.00 - 3.00 mmol/L 06/27/2023 15:19 [facility] Blood VENOUS BLOOD / Unknown Venipuncture / Unknown 06/27/2023 15:02 EDT 06/27/2023 15:14 EDT Alec Rizo MD CHEMISTRY & BLOOD GA S ORDERABLES [facility] [address], [place] [address] * (ABNORMAL) POCT GLUCOSE, INTERFACED (06/27/2023 12:15 EDT) Glucose, POC 113(H) 70 - 100 mg/dL 06/27/2023 12:16 EDT [facility] HN LAB POC COMMENT (GLUCOSE) Test Performed by Nursing Services 06/27/2023 12:16 EDT [facility] Blood CAPILLARY BLOOD / Unknown 06/27/2023 12:15 EDT 06/27/2023 12:16 EDT Khushi Young MD POINT OF CARE TEST ORDERABLES Performing Organization Address [facility] de Phone Number [facility] [address] [place] [address] * HEPARIN LEVEL - UNFRACTIONATED HEPARIN (06/27/2023 12:12 EDT) Heparin Level-UFH 0.17 Therapeutic Range: 0.30 - 0.70 IU/mL 06/27/2023 12:53 EDT [facility] Comment:Unfractionated hepar in therapeutic range = 0.3-0.7 IU/ml - This test is not intended for monitoring direct Xa inhibitors, direct thrombin inhibitors, or fondaparinux.- Exogenous ATIII is NOT supplied in this assay. For unexpected or persistently low levels, consider measuring patient's ATIII level. Results will be overestimated in the presence of direct Xa inhibitors (rivaroxaban, apixaban, edoxaban). Blood VENOUS BLOOD / Unknown Venipuncture / Unknown 06/27/2023 12:12 EDT 06/27/2023 12:21 EDT Narrative [facility] - 06/27/2023 12:53 EDT Sample retested, result confirmed Wandy Piper MD HEMATOLOGY & PF 4 ORDERABLES Performing Organization Address City/[facility]/ZIP Co de Phone Number [facility] [address], [place] [phone] * PREPARE RED BLOOD CELLS (06/27/2023 11:12 EDT) Product Code [id number] [facility] Donor Number [id number] U [facility] Unit Rh POS [facility] Unit Status TR^Transfuse [facility] Product Expiration Date [id number] [facility] Unit Blood Type Code 6200 [facility] Volume 330 [facility] Coding System [id number] [facility] Blood 06/27/2023 11:1 2 EDT Alec Rizo MD BLOOD BANK ORDERABLE S Performing Organization Address City/[facility]/ZIP Co de Phone Number [facility] [address] [place] [phone] * (ABNORMAL) BLOOD GASES, VENOUS (06/27/2023 9:39 EDT) pH, Venous 7.42(H) 7.31 - 7.41 06/27/2023 9:51 EDT [facility] pCO2, Venous 28(L) 41 - 51 mmHg 06/27/2023 9:51 T [facility] pO2, Venous 27(L) 30 - 50 mmHg 06/27/2023 9:51 T [facility] tCO2, Venous 19(L) 22 - 28 mmol/L 06/27/2023 9:51 [facility] Temperature 36.5 C 06/27/2023 9:51 [facility] O2 Saturation, Venous 49(L) 60 - 85 % 06/27/2023 9:51 [facility] Oxygen Therapy (FIO2) 40.0 % 06/27/2023 9:51 [facility] Base Level -6.00(L) -2.00 - 3.00 mmol/L 06/27/2023 9:51 [facility] Blood VENOUS BLOOD / Unknown Venipuncture / Unknown 06/27/2023 9:39 EDT 06/27/2023 9:46 EDT Alec Rizo MD CHEMISTRY & BLOOD GA S ORDERABLES Performing Organization Address City/[facility]/ZIP Co de Phone Number [facility] [address] [place] [address] * ECG REPORT - SCANNED (06/27/2023 8:46 EDT) 06/27/2023 8:46 EDT Scan 2 Tank Welder PROCEDURE/MINOR MILKA GICAL ORDERABLES * HEPARIN LEVEL - UNFRACTIONATED HEPARIN (06/27/2023 6:53 EDT) Heparin Level-UFH 0.26 Therapeutic Range: 0.30 - 0.70 IU/mL 06/27/2023 7:41 EDT [facility] Comment:Unfractionated hepar in therapeutic range = 0.3-0.7 IU/ml - This test is not intended for monitoring direct Xa inhibitors, direct thrombin inhibitors, or fondaparinux.- Exogenous ATIII is NOT supplied in this assay. For unexpected or persistently low levels, consider measuring patient's ATIII level. Results will be overestimated in the presence of direct Xa inhibitors (rivaroxaban, apixaban, edoxaban). Blood VENOUS BLOOD / Unknown Venipuncture / Unknown 06/27/2023 6:53 EDT 06/27/2023 7:12 EDT Narrative [facility] - 06/27/2023 7:41 EDT Sample retested, result confirmed Wandy Piper MD HEMATOLOGY & PF 4 ORDERABLES [facility] [address] [place] [phone] * (ABNORMAL) POCT BLOOD GAS, EG6 I-STAT (06/27/2023 4:31 EDT) pH, Arterial, i-STAT 7.41 7.35 - 7.45 06/27/2023 4:37 EDT [facility] PCO2, Arterial, i-STAT 24(L) 35 - 45 mmHg 06/27/2023 4:37 EDT [facility] pO2, Arterial, i-STAT 58(L) 80 - 105 mmHg 06/27/2023 4:37 EDT [facility] TCO2, Arterial, i-STAT 16(L) 22 - 26 mmol/L 06/27/2023 4:37 EDT [facility] O2 Saturation, Arterial, i-STAT 91(L) 95 - 98 % 06/27/2023 4:37 EDT [facility] Base Excess(+) / Deficit(-), Arterial, i-STAT -8(L) -2 - 3 mmol/L 06/27/2023 4:37 EDT [facility] Blood ARTERIAL BLOOD / Unknown 06/27/2023 4:31 EDT 06/27/2023 4:37 EDT Narrative [facility] - 06/27/2023 4:37 EDT Test Performed by Respiratory For arterial collection, the Laboratory recommends that the Modified Shahab test be performed to determine that collateral circulation is present from the ulnar artery in the event that thrombosis of the radial artery should occur. Performance of the Modified Shahab test should be documented in the patients' chart Charanjit Taylor MD POINT OF CARE TEST O RDERABLES Performing Organization Address City/[facility]/ZIP Co de Phone Number [facility] [address] [place] [address] * (ABNORMAL) POCT GLUCOSE, INTERFACED (06/27/2023 4:06 EDT) Glucose, POC 117(H) 70 - 100 mg/dL 06/27/2023 4:07 EDT [facility] HN LAB POC COMMENT (GLUCOSE) Test Performed by Nursing Services 06/27/2023 4:07 EDT [facility] Blood CAPILLARY BLOOD / Unknown 06/27/2023 4:06 EDT 06/27/2023 4:07 EDT Khushi Young MD POINT OF CARE TEST ORDERABLES Performing Organization Address City/[facility]/ZIP Co de Phone Number [facility] [address] [place] [address] * LACTIC ACID (06/27/2023 4:03 EDT) [facility] Lactic Acid 1.3 <=2.0 mmol/L 06/27/2023 4:29 EDT [facility] Blood VENOUS BLOOD / Unknown Venipuncture / Unknown 06/27/2023 4:03 EDT 06/27/2023 4:07 EDT Wandy Piper MD CHEMISTRY & BLO OD GAS ORDERABLES Performing Organization Address [facility] Co de Phone Number [facility] [address] [place] [address] * (ABNORMAL) PROTIME (06/27/2023 4:03 EDT) [facility] I.N.R. 3.3(H) 0.9 - 1.1 Ratio 06/27/2023 4:34 EDT [facility] Pro Time 36.6(H) 9.7 - 12.8 secs 06/27/2023 4:34 EDT [facility] Blood VENOUS BLOOD / Unknown Venipuncture / Unknown 06/27/2023 4:03 EDT 06/27/2023 4:09 EDT Narrative [facility] - 06/27/2023 4:34 EDT Moderate Intensity Coumadin INR = 2.0-3.0 Adjustments in anticoagulant therapy dose should be based on the INR and NOT on the Protime. Khushi Young MD HEMATOLOGY & PF4 OR DERABLES Performing Organization Address [facility] de Phone Number [facility] [address] [place] [phone] * (ABNORMAL) COMPLETE BLOOD COUNT AND DIFFERENTIAL (06/27/2023 4:03 EDT) [facility] WBC 15.95(H) 4.00 - 10.40 K/cmm 06/27/2023 4:19 EDT [facility] RBC 3.31(L) 4.36 - 5.78 M/cmm 06/27/2023 4:19 [facility] Hemoglobin 7.9(L) 13.8 - 17.3 g/dL 06/27/2023 4:19 [facility] HCT 24.3(L) 39.5 - 50.2 % 06/27/2023 4:19 [facility] MCV 73(L) 81 - 95 fL 06/27/2023 4:19 [facility] MCH 23.9(L) 27.6 - 33.0 pg 06/27/2023 4:19 [facility] Hypochromia 1+ 06/27/2023 4:19 [facility] MCHC 32.5(L) 32.8 - 36.4 g/dL 06/27/2023 4:19 [facility] RDW-CV 20.3(H) <14.2 % 06/27/2023 4:19 [facility] RDW-SD 52.9(H) <46.0 fl 06/27/2023 4:19 [facility] Anisocytosis 2+ 06/27/2023 4:19 [facility] PLT 131(L) 141 - 377 K/cmm 06/27/2023 4:19 [facility] MPV 06/27/2023 4:19 [facility] Comment:Not Available Nucleated Red Blood Cells 2(H) <=0 /100WBC'S 06/27/2023 4:19 [facility] % Neutrophils 88.2 % 06/27/2023 4:19 [facility] % Lymphocytes 6.1 % 06/27/2023 4:19 [facility] % Monocytes 4.6 % 06/27/2023 4:19 [facility] % Eosinophils 0.1 % 06/27/2023 4:19 [facility] % Basophils 0.1 % 06/27/2023 4:19 [facility] % Immature Grans 0.9 % 06/27/19 4:19 [facility] Absolute Neutrophils 14.07(H) 2.20 - 8.85 K/cmm 06/27/2023 4:19 [facility] Absolute Lymphocytes 0.97(L) 1.09 - 3.30 K/cmm 06/27/2023 4:19 [facility] Absolute Monocytes 0.74 0.10 - 0.80 K/cmm 06/27/2023 4:19 [facility] Absolute Eosinophils 0.01(L) 0.03 - 0.61 K/cmm 06/27/2023 4:19 [facility] ABS Basophils 0.02 0.01 - 0.11 K/cmm 06/27/2023 4:19 [facility] Absolute Immature Grans 0.14(H) 0.00 - 0.06 K/cmm 06/27/2023 4:19 [facility] Type of Differential: Auto 06/27/2023 4:19 [facility] Blood VENOUS BLOOD / Unknown Venipuncture / Unknown 06/27/2023 4:03 EDT 06/27/2023 4:08 EDT Alec Rizo MD PACKAGES & DNA PROBE ORDERABLES [facility] [address], [place] [phone] * (ABNORMAL) COMPREHENSIVE METABOLIC PANEL (CMP) (06/27/2023 4:03 EDT) Sodium 139 136 - 145 mmol/L 06/27/2023 5:05 [facility] Potassium 3.8 3.5 - 5.0 mmol/L 06/27/2023 5:05 [facility] Chloride 112(H) 96 - 110 mmol/L 06/27/2023 5:05 [facility] CO2 Total 19(L) 22 - 32 mmol/L 06/27/2023 5:05 [facility] Glucose 118(H) 70 - 99 mg/dl 06/27/2023 5:05 [facility] BUN 4(L) 10 - 26 mg/dL 06/27/2023 5:05 [facility] Creatinine 0.50(L) 0.66 - 1.25 mg/dL 06/27/2023 5:05 [facility] eGFR 111 >60 mL/min/1. 73m2 06/27/2023 5:05 [facility] Total Protein 5.5(L) 6.3 - 8.2 g/dL 06/27/2023 5:05 [facility] Albumin 2.4(L) 3.4 - 4.9 g/dL 06/27/2023 5:05 [facility] Alkaline Phosphatase 182(H) 38 - 126 U/L 06/27/2023 5:05 [facility] AST 6,405(H) 15 - 46 U/L 06/27/2023 5:05 [facility] ALT 2,114(H) <50 U/L 06/27/2023 5:05 [facility] Bilirubin, Total 3.4(H) <1.4 mg/dL 06/27/2023 5:05 [facility] Calcium 7.5(L) 8.5 - 10.5 mg/dL 06/27/2023 5:05 [facility] Albumin/Globulin Ratio 0.8(L) 1.0 - 2.5 06/27/2023 5:05 [facility] Anion Gap 8 5 - 14 mmol/L 06/27/2023 5:05 [facility] Blood VENOUS BLOOD / Unknown Venipuncture / Unknown 06/27/2023 4:03 EDT 06/27/2023 4:07 T Alec Rizo MD CHEMISTRY & BLOOD GA S ORDERABLES [facility] [address] [place] [address] * (ABNORMAL) PTT (06/27/2023 4:03 EDT) PTT 96(H) 26 - 37 secs 06/27/2023 4:34 EDT [facility] Blood VENOUS BLOOD / Unknown Venipuncture / Unknown 06/27/2023 4:03 EDT 06/27/2023 4:09 EDT Khushi Young MD HEMATOLOGY & PF4 OR DERABLES Performing Organization Address [facility] Co de Phone Number [facility] [address] [place] [address] * TRIGLYCERIDE (06/27/2023 4:03 EDT) Pathologist [facility] Triglyceride 72 <=150 mg/dL 06/27/2023 4:29 EDT [facility] Comment:Note that therapeuti c goals will differ between patients based on cardiac risk factors and current medical therapy. Blood VENOUS BLOOD / Unknown Venipuncture / Unknown 06/27/2023 4:03 EDT 06/27/2023 4:07 EDT Charanjit Tayolr MD CHEMISTRY & BLOOD GA S ORDERABLES Performing Organization Address [facility] de Phone Number [facility] [address] [place] [phone] * (ABNORMAL) PHOSPHORUS (06/27/2023 4:03 EDT) Pathologist [facility] Phosphorus 1.8(L) 2.5 - 4.5 mg/dL 06/27/2023 4:29 EDT [facility] Blood VENOUS BLOOD / Unknown Venipuncture / Unknown 06/27/2023 4:03 EDT 06/27/2023 4:07 EDT Khushi Young MD CHEMISTRY & BLOOD G ORDERABLES Performing Organization Address [facility] Co de Phone Number [facility] [address] [place] [address] * MAGNESIUM (06/27/2023 4:03 EDT) Magnesium 1.8 1.7 - 2.8 mg/dL 06/27/2023 4:29 EDT [facility] Blood VENOUS BLOOD / Unknown Venipuncture / Unknown 06/27/2023 4:03 EDT 06/27/2023 4:07 EDT Khushi Young MD CHEMISTRY & BLOOD G ORDERABLES [facility] [address] [place] [address] * HEPARIN LEVEL - UNFRACTIONATED HEPARIN (06/26/2023 23:35 EDT) Heparin Level-UFH 0.10 Therapeutic Range: 0.30 - 0.70 IU/mL 06/27/2023 0:41 EDT [facility] Comment:Unfractionated hepar in therapeutic range = 0.3-0.7 IU/ml - This test is not intended for monitoring direct Xa inhibitors, direct thrombin inhibitors, or fondaparinux.- Exogenous ATIII is NOT supplied in this assay. For unexpected or persistently low levels, consider measuring patient's ATIII level. Results will be overestimated in the presence of direct Xa inhibitors (rivaroxaban, apixaban, edoxaban). Blood VENOUS BLOOD / Unknown Venipuncture / Unknown 06/26/2023 23:35 EDT 06/26/2023 23:41 EDT Wandy Piper MD HEMATOLOGY & PF 4 ORDERABLES [facility] [address] [place] [address] * (ABNORMAL) MAGNESIUM (06/26/2023 21:43 EDT) Magnesium 1.6(L) 1.7 - 2.8 mg/dL 06/26/2023 22:27 EDT [facility] Blood VENOUS BLOOD / Unknown Venipuncture / Unknown 06/26/2023 21:43 EDT 06/26/2023 21:46 EDT Wandy Piper MD CHEMISTRY & BLO OD GAS ORDERABLES Performing Organization Address City/[facility]/ZIP Co de Phone Number [facility] [address] [place] [address] * (ABNORMAL) BASIC METABOLIC PANEL (BMP) (06/26/2023 21:43 EDT) Sodium 139 136 - 145 mmol/L 06/26/2023 22:27 [facility] Potassium 3.9 3.5 - 5.0 mmol/L 06/26/2023 22:27 [facility] Chloride 111(H) 96 - 110 mmol/L 06/26/2023 22:27 [facility] CO2 Total 17(L) 22 - 32 mmol/L 06/26/2023 22:27 [facility] Anion Gap 11 5 - 14 mmol/L 06/26/2023 22:27 [facility] Glucose 119(H) 70 - 99 mg/dl 06/26/2023 22:27 [facility] Calcium 7.5(L) 8.5 - 10.5 mg/dL 06/26/2023 22:27 [facility] BUN 6(L) 10 - 26 mg/dL 06/26/2023 22:27 [facility] Creatinine 0.68 0.66 - 1.25 mg/dL 06/26/2023 22:27 [facility] eGFR 101 >60 mL/min/1.73 m2 06/26/2023 22:27 [facility] Blood VENOUS BLOOD / Unknown Venipuncture / Unknown 06/26/2023 21:43 EDT 06/26/2023 21:46 EDT Wandy Piper MD CHEMISTRY & BLO OD GAS ORDERABLES [facility] [address], [place] [phone] * (ABNORMAL) POCT GLUCOSE, INTERFACED (06/26/2023 18:55 EDT) Glucose, POC 111(H) 70 - 100 mg/dL 06/26/2023 18:57 EDT [facility] HN LAB POC COMMENT (GLUCOSE) Test Performed by Nursing Services 06/26/2023 18:57 EDT [facility] Blood CAPILLARY BLOOD / Unknown 06/26/2023 18:55 EDT 06/26/2023 18:57 EDT Khushi Young MD POINT OF CARE TEST ORDERABLES Performing Organization Address [facility] Co de Phone Number [facility] [address], [place] [address] * HEPARIN LEVEL - UNFRACTIONATED HEPARIN (06/26/2023 18:52 EDT) Pathologist [facility] Heparin Level-UFH <0.04 Therapeutic Range: 0.30 - 0.70 IU/mL 06/26/2023 19:41 EDT [facility] Comment:Unfractionated hepar in therapeutic range = 0.3-0.7 IU/ml - This test is not intended for monitoring direct Xa inhibitors, direct thrombin inhibitors, or fondaparinux.- Exogenous ATIII is NOT supplied in this assay. For unexpected or persistently low levels, consider measuring patient's ATIII level. Results will be overestimated in the presence of direct Xa inhibitors (rivaroxaban, apixaban, edoxaban). Blood VENOUS BLOOD / Unknown Venipuncture / Unknown 06/26/2023 18:52 EDT 06/26/2023 19:08 EDT Narrative [facility] - 06/26/2023 19:41 EDT Sample retested, result confirmed Wandy Piper MD HEMATOLOGY & PF 4 ORDERABLES [facility] [address] [place] [phone] * XR CHEST PORTABLE LINE PLACEMENT (06/26/2023 18:25 EDT) Anatomical Region Laterality Modality Chest Computed Radiogr aphy 06/26/2023 18:5 1 EDT Impressions 06/26/2023 18:51 EDT 1. ??Tip of the right internal jugular catheter projects at the right pulmonary artery. 2. ??Bilateral pleural effusions better assessed on comparison CT. [id number] Narrative 06/26/2023 18:51 EDT XR CHEST PORTABLE LINE PLACEMENT ??06/26/2023 6:16 PM Clinical History/comments: s/p swan phani catheter; Comparison: CT chest from 06/25/2023. Chest radiograph from 06/25/2023. Technique: Single portable AP view of the chest. Findings: Lines/tubes: There is a right internal jugular catheter with distal tip at the level of the right pulmonary artery. Tip of the endotracheal tube is at the level of the mid trachea. Transesophageal tube is beyond the gastroesophageal junction. Left internal jugular catheter projects over the upper SVC Lungs/pleura: The lower lungs are incompletely imaged. Ill-defined opacity in the right mid to lower lung likely represents combination of pleural fluid and atelectasis. Ill-defined left lung base opacity likely represents layering pleural fluid. Cardiac and mediastinal contours: Cardiac silhouette is unremarkable for technique. Soft tissues and extrathoracic findings: Imaged soft tissues are within normal limits. Bones: Left reverse shoulder arthroplasty is noted. Procedure Note Dasha Baca MD - 06/26/2023 XR CHEST PORTABLE LINE PLACEMENT 06/26/2023 6:16 PM Clinical History/comments: s/p swan phani catheter; Comparison: CT chest from 06/25/2023. Chest radiograph from 06/25/2023. Technique: Single portable AP view of the chest. Findings: Lines/tubes: There is a right internal jugular catheter with distal tip atthe level of the right pulmonary artery. Tip of the endotracheal tube isat the level of the mid trachea. Transesophageal tube is beyond thegastroesophageal junction. Left internal jugular catheter projects overthe upper SVC Lungs/pleura: The lower lungs are incompletely imaged. Ill-defined opacityin the right mid to lower lung likely represents combination of pleuralfluid and atelectasis. Ill-defined left lung base opacity likelyrepresents layering pleural fluid. Cardiac and mediastinal contours: Cardiac silhouette is unremarkable fortechnique. Soft tissues and extrathoracic findings: Imaged soft tissues are withinnormal limits. Bones: Left reverse shoulder arthroplasty is noted. IMPRESSION 1. Tip of the right internal jugular catheter projects at the rightpulmonary artery. 2. Bilateral pleural effusions better assessed on comparison CT. [id number] Davian Murrell MD IMG DIAGNOSTIC IMAGI NG ORDERABLES * POCT US ED GUIDANCE CVC (06/26/2023 15:58 EDT) Anatomical Region Laterality Modality Other 06/26/2023 15:5 8 EDT Narrative 06/27/2023 11:37 EDT Study Date and Time: 2023-06-26 15:58 Study Author: Charanjit BURGESS Proc Guidance - Central Line - POCUS UVMHN: Indications for this focused ultrasound:: ?Select all that apply:: Need to initiate vasopressors ?Other indications:: [place] Location of Views Obtained & Images Saved: ?Laterality:: Right ?Site of Central Line:: Internal jugular vein ?Other site:: N/A Procedure: ?Guidance: Dynamic ?Technique: Seldinger ?Other technique:: N/A Complications: ?Procedure Complications:: None ?Other Complications:: N/A Interpretation: ?Exam interpretation:: Successful US-guided central line insertion ?Other interpretation or comments:: N/A Confirmatory Study: ?What confirmatory study was performed?: X-Ray, POCUS visualization of catheter/wire in vessel, No additional imaging ordered ?Confirmatory study findings/comments:: N/A Signed by Charanjit BURGESS on 2023-06-27 11:37 Procedure Note Charanjit Taylor MD - 06/27/2023 Study Date and Time: 2023-06-26 15:58 Study Author: Charanjit BURGESS Proc Guidance - Central Line - POCUS UVMHN: Indications for this focused ultrasound:: Select all that apply:: Need to initiate vasopressors Other indications:: [place] Location of Views Obtained & Images Saved: Laterality:: Right Site of Central Line:: Internal jugular vein Other site:: N/A Procedure: Guidance: Dynamic Technique: Seldinger Other technique:: N/A Complications: Procedure Complications:: None Other Complications:: N/A Interpretation: Exam interpretation:: Successful US-guided central line insertion Other interpretation or comments:: N/A Confirmatory Study: What confirmatory study was performed?: X-Ray, POCUS visualization ofcatheter/wire in vessel, No additional imaging ordered Confirmatory study findings/comments:: N/A Signed by Charanjit BURGESS on 2023-06-27 11:37 Charanjit Taylor MD IMG POCT US ORDERABL ES * (ABNORMAL) BACTERIAL CULTURE/SMEAR, RESPIRATORY (06/26/2023 15:27 EDT) Organism ID Few usual nina-pharyngeal deanna, no Staphylococcus aureus or Pseudomonas species isolated. 06/28/2023 7:37 EDT [facility] Smear Many Neutrophils Present(A) 06/28/2023 7:37 EDT [facility] Smear Few Squamous Epithelial Cells(A) 06/28/2023 7:37 EDT [facility] Smear No bacteria seen(A) 06/28/2023 7:37 EDT [facility] Sputum ENDOTRACHEAL TUBE / Unknown 06/26/2023 15:27 EDT 06/26/2023 15:33 EDT Love Ricks MD MICROBIOLOGY - GENER AL ORDERABLES [facility] [address] [place] [address] * TRANSFUSE PLASMA (06/26/2023 14:55 EDT) Blood Charanjit Taylor MD NURSING TREATMENT - BLOOD ADMINISTRATION * TRANSFUSE PLASMA (06/26/2023 14:55 EDT) Blood Charanjit Taylor MD NURSING TREATMENT - BLOOD ADMINISTRATION * HEPATITIS B CORE ANTIBODY, IGM (ANTI-HBC, IGM), SERUM (06/26/2023 14:06 EDT) Pathologist [facility] HBc IgM Ab, S Negative Negative 06/27/2023 15:08 EDT [facility] Comment: Consumption of high-dose biotin supplement within 12 hours of blood collection for this test can cause false-negative results. Test Performed by: [facility] [address] [place] [address] Cadd Manager: Troy Ayon M.D. Ph.D.; CLIA# [id number] Blood VENOUS BLOOD / Unknown Venipuncture / Unknown 06/26/2023 14:06 EDT 06/26/2023 14:39 EDT Alec Rizo MD CHEMISTRY & BLOOD GA S ORDERABLES Performing Organization Address City/[facility]/ZIP Co de Phone Number [facility] [address] [place] [address] * HCV RNA DETECT QUANT (06/26/2023 14:06 EDT) [facility] HCV RNA Qualitative Undetected Undetected 06/27/2023 13:20 EDT [facility] Blood VENOUS BLOOD / Unknown Venipuncture / Unknown 06/26/2023 14:06 EDT 06/26/2023 14:39 EDT Narrative [facility] - 06/27/2023 13:20 EDT The quantification range of this assay is 15 IU/mL to 100,000,000 IU/mL. Testing was performed using the Kendy HCV test ([employer] with the kendy [id number] System. Alec Rizo MD CHEMISTRY & BLOOD GA S ORDERABLES [facility] [address] [place] [address] * (ABNORMAL) LACTIC ACID (06/26/2023 14:06 EDT) Lactic Acid 2.6(HH) <=2.0 mmol/L 06/26/2023 14:31 EDT [facility] Blood VENOUS BLOOD / Unknown Venipuncture / Unknown 06/26/2023 14:06 EDT 06/26/2023 14:16 EDT Wandy Piper MD CHEMISTRY & BLO OD GAS ORDERABLES Performing Organization Address [facility]/ZIP Co de Phone Number [facility] [address] [place] [address] * TRANSFUSE PLASMA (06/26/2023 13:32 EDT) Blood Charanjit Taylor MD NURSING TREATMENT - BLOOD ADMINISTRATION * HEPARIN LEVEL - UNFRACTIONATED HEPARIN (06/26/2023 11:42 EDT) Pathologist [facility] Heparin Level-UFH <0.04 Therapeutic Range: 0.30 - 0.70 IU/mL 06/26/2023 12:17 EDT [facility] Comment:Unfractionated hepar in therapeutic range = 0.3-0.7 IU/ml - This test is not intended for monitoring direct Xa inhibitors, direct thrombin inhibitors, or fondaparinux.- Exogenous ATIII is NOT supplied in this assay. For unexpected or persistently low levels, consider measuring patient's ATIII level. Results will be overestimated in the presence of direct Xa inhibitors (rivaroxaban, apixaban, edoxaban). Blood VENOUS BLOOD / Unknown Venipuncture / Unknown 06/26/2023 11:42 EDT 06/26/2023 11:52 EDT Wandy Piper MD HEMATOLOGY & PF 4 ORDERABLES [facility] [address] [place] [address] * (ABNORMAL) THROMBELASTOGRAPH (06/26/2023 11:42 EDT) Reaction Time 4.8(L) 5.0 - 10.0 mins 06/26/2023 13:19 [facility] K Time 1.8 1.0 - 3.0 mins 06/26/2023 13:19 [facility] Angle 70.4 53.0 - 72.0 Degrees 06/26/2023 13:19 [facility] Maximum Amplitude 68.7 50.0 - 70.0 mm 06/26/2023 13:19 [facility] Interpretation 06/26/2023 13:19 [facility] Patient Location MICU 06/26/19 13:19 [facility] Estimated % Lysis 0.0 0.0 - 15.0 % 06/26/2023 13:19 [facility] Blood VENOUS BLOOD / Unknown Venipuncture / Unknown 06/26/2023 11:42 EDT 06/26/2023 11:52 EDT Khushi Young MD HEMATOLOGY & PF4 OR DERABLES Performing Organization Address City/State/[facility] Co de Phone Number [facility] [address] [place] [address] * (ABNORMAL) POCT GLUCOSE, INTERFACED (06/26/2023 11:41 EDT) Glucose, POC 132(H) 70 - 100 mg/dL 06/26/2023 11:42 EDT [facility] HN LAB POC COMMENT (GLUCOSE) Test Performed by Nursing Services 06/26/2023 11:42 EDT [facility] Blood CAPILLARY BLOOD / Unknown 06/26/2023 11:41 EDT 06/26/2023 11:42 EDT Khushi Young MD POINT OF CARE TEST ORDERABLES [facility] [address] [place] [address] * LOWER VENOUS DUPLEX (DVT) BILATERAL (06/26/2023 11:40 EDT) Anatomical Region Laterality Modality Vascular Ultrasound Narrative 06/26/2023 15:39 EDT ?No evidence of deep or superficial venous thrombosis in the right lower extremity. ?No evidence of deep or superficial venous thrombosis in the left lower extremity. Right Lower Venous Other The right external iliac, common femoral, proximal greater saphenous, proximal profunda femoris, femoral, popliteal, peroneal, and posterior tibial veins demonstrate normal Doppler flow/waveforms and compression. Left Lower Venous Other The left external iliac, common femoral, proximal greater saphenous, proximal profunda femoris, femoral, popliteal, peroneal, and posterior tibial veins demonstrate normal Doppler flow/waveforms and compression. Venous HPI and Indications Lower extremity swelling. Alec Rizo MD [facility] VASCULAR ORDE MER * PREPARE PLASMA (06/26/2023 11:22 EDT) [facility] Signature Product Code [id number] [facility] BLOOD BANK Donor Number [id number] [facility] BLOOD B[facility] Unit ABO A [facility] [place] [facility] Unit Rh POS [facility] [place] [facility] Unit Status TR^Transfuse [facility] Product Expiration Date [id number] [facility] BLOOD [facility] Unit Blood Type Code 6200 [facility] BLOOD [facility] Volume 219 [facility] [place] [facility] Coding System [id number] [facility] 06/26/2023 11:2 2 EDT Charanjit Taylor MD BLOOD BANK ORDERABLE S [facility] BLOOD BANK [address] [place] [address] * PREPARE PLASMA (06/26/2023 11:22 EDT) Product Code [id number] [facility] BLOOD B[facility] Donor Number [id number] U [facility] BLOOD BANK Unit ABO A [facility] BLOOD BANK Unit Rh POS [facility] BLOOD BANK Unit Status TR^Transfuse [facility] Product Expiration Date [id number] [facility] BLOOD B[facility] Unit Blood Type Code 6200 [facility] BLOOD [facility] Volume 218 [facility] BLOOD B[facility] Coding System [id number] [facility] Blood VENOUS BLOOD / Unknown 06/26/2023 11:22 EDT Charanjit Taylor MD BLOOD BANK ORDERABLE S Performing Organization Address City/State/[facility] Co de Phone Number [facility] BLOOD BANK [address] [place] [address] * (ABNORMAL) BLOOD GASES, VENOUS (06/26/2023 10:05 EDT) pH, Venous 7.42(H) 7.31 - 7.41 06/26/2023 10:16 [facility] pCO2, Venous 33(L) 41 - 51 mmHg 06/26/2023 10:16 [facility] pO2, Venous 42 30 - 50 mmHg 06/26/2023 10:16 [facility] tCO2, Venous 21(L) 22 - 28 mmol/L 06/26/2023 10:16 [facility] Temperature 37.0 C 06/26/2023 10:16 [facility] Comment:Body Temp not noted. 37 degrees assumed. O2 Saturation, Venous 73 60 - 85 % 06/26/2023 10:16 [facility] Oxygen Therapy (FIO2) 06/26/2023 10:16 [facility] Comment:Oxygen therapy not n oted in system. Base Level -3.50(L) -2.00 - 3.00 mmol/L 06/26/2023 10:16 [facility] Blood VENOUS BLOOD / Unknown Venipuncture / Unknown 06/26/2023 10:05 EDT 06/26/2023 10:13 EDT Wandy Piper MD CHEMISTRY & BLO OD GAS ORDERABLES Performing Organization Address [facility]/ZIP Co de Phone Number [facility] [address], [place] [phone] * (ABNORMAL) FIBRINOGEN (06/26/2023 10:05 EDT) Fibrinogen 136(L) 171 - 384 mg/dL 06/26/2023 10:40 EDT [facility] Blood VENOUS BLOOD / Unknown Venipuncture / Unknown 06/26/2023 10:05 EDT 06/26/2023 10:17 EDT Alec Rizo MD HEMATOLOGY & PF4 ORD ERABLES Performing Organization Address [facility] de Phone Number [facility] [address], [place] [phone] * (ABNORMAL) D-DIMER (06/26/2023 10:05 EDT) D-Dimer 4,290(H) <=230 ng/mL DDU 06/26/2023 10:48 EDT [facility] Blood VENOUS BLOOD / Unknown Venipuncture / Unknown 06/26/2023 10:05 EDT 06/26/2023 10:17 EDT Narrative [facility] - 06/26/2023 10:48 EDT Cutoff value for the exclusion of DVT and PE: 230 ng/mL D-dimer units. Alec Rizo MD HEMATOLOGY & PF4 ORD ERABLES Performing Organization Address [facility]/ZIP Co de Phone Number [facility] [address], [place] [phone] * (ABNORMAL) PTT (06/26/2023 10:05 EDT) PTT 42(H) 26 - 37 secs 06/26/2023 10:38 EDT [facility] Blood VENOUS BLOOD / Unknown Venipuncture / Unknown 06/26/2023 10:05 EDT 06/26/2023 10:17 EDT Alec Rizo MD HEMATOLOGY & PF4 ORD ERABLES Performing Organization Address City/[facility]/ZIP Co de Phone Number [facility] [address], [place] [phone] * MRSA PCR (06/26/2023 10:05 EDT) [facility] MRSA/Staph aureus Result No Staphylococcus aureus detected by PCR 06/26/2023 14:20 EDT [facility] Swab BOTH ANTERIOR NARES / Unknown Swab / Unknown 06/26/2023 10:05 EDT 06/26/2023 11:22 EDT Alec Rizo MD MICROBIOLOGY - GENER AL ORDERABLES Performing Organization Address City/[facility]/ZIP Co de Phone Number [facility] [address] [place] [address] * (ABNORMAL) POCT GLUCOSE, INTERFACED (06/26/2023 5:49 EDT) [facility] Glucose, POC 115(H) 70 - 100 mg/dL 06/26/2023 5:50 EDT [facility] HN LAB POC COMMENT (GLUCOSE) Test Performed by Nursing Services 06/26/2023 5:50 EDT [facility] Blood CAPILLARY BLOOD / Unknown 06/26/2023 5:49 EDT 06/26/2023 5:50 EDT Khushi Young MD POINT OF CARE TEST ORDERABLES Performing Organization Address [facility]/ZIP Co de Phone Number [facility] [address], [place] [phone] * (ABNORMAL) BLOOD GASES, VENOUS (06/26/2023 5:47 EDT) pH, Venous 7.37 7.31 - 7.41 06/26/2023 6:00 EDT [facility] pCO2, Venous 36(L) 41 - 51 mmHg 06/26/2023 6:00 EDT [facility] pO2, Venous 69(H) 30 - 50 mmHg 06/26/2023 6:00 EDT [facility] tCO2, Venous 21(L) 22 - 28 mmol/L 06/26/2023 6:00 EDT [facility] Temperature 37.0 C 06/26/2023 6:00 EDT [facility] O2 Saturation, Venous 91(H) 60 - 85 % 06/26/2023 6:00 EDT [facility] Oxygen Therapy (FIO2) 40.0 % 06/26/2023 6:00 EDT [facility] Base Level -4.50(L) -2.00 - 3.00 mmol/L 06/26/2023 6:00 EDT [facility] Blood VENOUS BLOOD / Unknown Venipuncture / Unknown 06/26/2023 5:47 EDT 06/26/2023 5:50 EDT Wandy Piper MD CHEMISTRY & BLO OD GAS ORDERABLES Performing Organization Address City/[facility]/ZIP Co de Phone Number [facility] [address] [place] [address] * (ABNORMAL) LACTIC ACID (06/26/2023 5:47 EDT) Lactic Acid 2.6(HH) <=2.0 mmol/L 06/26/2023 6:06 EDT [facility] Blood VENOUS BLOOD / Unknown Venipuncture / Unknown 06/26/2023 5:47 EDT 06/26/2023 5:50 EDT Wandy Piper MD CHEMISTRY & BLO OD GAS ORDERABLES Performing Organization Address City/[facility]/ZIP Co de Phone Number [facility] [address], [place] [phone] * CK (06/26/2023 5:47 EDT) [facility] CK 205 <=250 U/L 06/26/2023 6:02 EDT [facility] Blood VENOUS BLOOD / Unknown Venipuncture / Unknown 06/26/2023 5:47 EDT 06/26/2023 5:50 EDT Wandy Piper MD CHEMISTRY & BLO OD GAS ORDERABLES [facility] [address], [place] [phone] * (ABNORMAL) PROTIME (06/26/2023 4:30 EDT) [facility] I.N.R. 4.1(HH) 0.9 - 1.1 Ratio 06/26/2023 9:57 EDT [facility] Pro Time 44.6(H) 9.7 - 12.8 secs 06/26/2023 9:57 EDT [facility] Blood VENOUS BLOOD / Unknown Venipuncture / Unknown 06/26/2023 4:30 EDT 06/26/2023 4:55 EDT Narrative [facility] - 06/26/2023 9:57 EDT Moderate Intensity Coumadin INR = 2.0-3.0 Adjustments in anticoagulant therapy dose should be based on the INR and NOT on the Protime. Alec Rizo MD HEMATOLOGY & PF4 ORD ERABLES [facility] [address], [place] [phone] * HEPARIN LEVEL - UNFRACTIONATED HEPARIN (06/26/2023 4:30 EDT) [facility] Heparin Level-UFH <0.04 Therapeutic Range: 0.30 - 0.70 IU/mL 06/26/2023 5:46 EDT [facility] Comment: Unfractionated heparin therapeutic range = 0.3-0.7 IU/ml - This test is not intended for monitoring direct Xa inhibitors, direct thrombin inhibitors, or fondaparinux.- Exogenous ATIII is NOT supplied in this assay. For unexpected or persistently low levels, consider measuring patient's ATIII level. Results will be overestimated in the presence of direct Xa inhibitors (rivaroxaban, apixaban, edoxaban). Sample retested, result confirmed Blood VENOUS BLOOD / Unknown Venipuncture / Unknown 06/26/2023 4:30 EDT 06/26/2023 4:55 EDT Wandy Piper MD HEMATOLOGY & PF 4 ORDERABLES [facility] [address], [place] [phone] * (ABNORMAL) BLOOD GASES, VENOUS (06/26/2023 1:09 EDT) pH, Venous 7.37 7.31 - 7.41 06/26/2023 1:19 [facility] pCO2, Venous 37(L) 41 - 51 mmHg 06/26/2023 1:19 [facility] pO2, Venous 50 30 - 50 mmHg 06/26/2023 1:19 [facility] tCO2, Venous 22 22 - 28 mmol/L 06/26/2023 1:19 [facility] Temperature 36.5 C 06/26/2023 1:19 [facility] O2 Saturation, Venous 81 60 - 85 % 06/26/2023 1:19 [facility] Oxygen Therapy (FIO2) 40.0 % 06/26/2023 1:19 [facility] Base Level -4.10(L) -2.00 - 3.00 mmol/L 06/26/2023 1:19 [facility] Blood VENOUS BLOOD / Unknown Venipuncture / Unknown 06/26/2023 1:09 EDT 06/26/2023 1:14 EDT Alec Rizo MD CHEMISTRY & BLOOD GA S ORDERABLES Performing Organization Address City/[facility]/ZIP Co de Phone Number [facility] [address] [place] [address] * (ABNORMAL) LACTIC ACID (06/26/2023 1:09 EDT) Lactic Acid 2.2(HH) <=2.0 mmol/L 06/26/2023 1:32 EDT [facility] Blood VENOUS BLOOD / Unknown Venipuncture / Unknown 06/26/2023 1:09 EDT 06/26/2023 1:14 EDT Alec Rizo MD CHEMISTRY & BLOOD GA S ORDERABLES Performing Organization Address [facility] Co de Phone Number [facility] [address] [place] [address] * (ABNORMAL) COMPLETE BLOOD COUNT AND DIFFERENTIAL (06/26/2023 1:09 EDT) WBC 22.33(H) 4.00 - 10.40 K/cmm 06/26/2023 1:30 [facility] RBC 3.72(L) 4.36 - 5.78 M/cmm 06/26/2023 1:30 [facility] Hemoglobin 9.1(L) 13.8 - 17.3 g/dL 06/26/2023 1:30 [facility] HCT 27.6(L) 39.5 - 50.2 % 06/26/2023 1:30 [facility] MCV 74(L) 81 - 95 fL 06/26/2023 1:30 [facility] MCH 24.5(L) 27.6 - 33.0 pg 06/26/2023 1:30 [facility] Hypochromia 1+ 06/26/2023 1:30 [facility] MCHC 33.0 32.8 - 36.4 g/dL 06/26/2023 1:30 [facility] RDW-CV 19.5(H) <14.2 % 06/26/2023 1:30 [facility] RDW-SD 51.8(H) <46.0 fl 06/26/2023 1:30 [facility] Anisocytosis 2+ 06/26/2023 1:30 [facility] PLT 162 141 - 377 K/cmm 06/26/2023 1:30 [facility] MPV 06/26/2023 1:30 [facility] Comment:Not Available Nucleated Red Blood Cells 2(H) <=0 /100WBC'S 06/26/2023 1:30 [facility] % Neutrophils 93.0 % 06/26/2023 1:30 [facility] % Lymphocytes 2.9 % 06/26/2023 1:30 [facility] % Monocytes 2.6 % 06/26/2023 1:30 [facility] % Eosinophils 0.0 % 06/26/2023 1:30 [facility] % Basophils 0.1 % 06/26/2023 1:30 [facility] % Immature Grans 1.4 % 06/26/19 1:30 [facility] Absolute Neutrophils 20.74(H) 2.20 - 8.85 K/cmm 06/26/2023 1:30 [facility] Absolute Lymphocytes 0.65(L) 1.09 - 3.30 K/cmm 06/26/2023 1:30 [facility] Absolute Monocytes 0.59 0.10 - 0.80 K/cmm 06/26/2023 1:30 [facility] Absolute Eosinophils 0.00(L) 0.03 - 0.61 K/cmm 06/26/2023 1:30 [facility] ABS Basophils 0.03 0.01 - 0.11 K/cmm 06/26/2023 1:30 [facility] Absolute Immature Grans 0.32(H) 0.00 - 0.06 K/cmm 06/26/2023 1:30 [facility] Type of Differential: Auto 06/26/2023 1:30 [facility] Blood VENOUS BLOOD / Unknown Venipuncture / Unknown 06/26/2023 1:09 EDT 06/26/2023 1:14 EDT Alec Rizo MD PACKAGES & DNA PROBE ORDERABLES [facility] [address], [place] [phone] * (ABNORMAL) COMPREHENSIVE METABOLIC PANEL (CMP) (06/26/2023 1:09 EDT) Sodium 133(L) 136 - 145 mmol/L 06/26/2023 2:35 [facility] Potassium 4.5 3.5 - 5.0 mmol/L 06/26/2023 2:35 [facility] Chloride 103 96 - 110 mmol/L 06/26/2023 2:35 [facility] CO2 Total 20(L) 22 - 32 mmol/L 06/26/2023 2:35 [facility] Glucose 106(H) 70 - 99 mg/dl 06/26/2023 2:35 [facility] BUN 22 10 - 26 mg/dL 06/26/2023 2:35 [facility] Creatinine 1.58(H) 0.66 - 1.25 mg/dL 06/26/2023 2:35 [facility] eGFR 47(L) >60 mL/min/1. 73m2 06/26/2023 2:35 [facility] Total Protein 5.6(L) 6.3 - 8.2 g/dL 06/26/2023 2:35 [facility] Albumin 2.5(L) 3.4 - 4.9 g/dL 06/26/2023 2:35 [facility] Alkaline Phosphatase 156(H) 38 - 126 U/L 06/26/2023 2:35 EDT [facility] AST >15,000(H ) 15 - 46 U/L 06/26/2023 2:35 T [facility] ALT 3,381(H) <50 U/L 06/26/2023 2:35 T [facility] Bilirubin, Total 2.7(H) <1.4 mg/dL 06/26/2023 2:35 T [facility] Calcium 7.3(L) 8.5 - 10.5 mg/dL 06/26/2023 2:35 T [facility] Albumin/Globulin Ratio 0.8(L) 1.0 - 2.5 06/26/2023 2:35 T [facility] Anion Gap 10 5 - 14 mmol/L 06/26/2023 2:35 T [facility] Blood VENOUS BLOOD / Unknown Venipuncture / Unknown 06/26/2023 1:09 EDT 06/26/2023 1:14 EDT Alec Rizo MD CHEMISTRY & BLOOD GA S ORDERABLES [facility] [address] [place] [address] * (ABNORMAL) POCT GLUCOSE, INTERFACED (06/26/2023 1:09 EDT) Glucose, POC 110(H) 70 - 100 mg/dL 06/26/2023 1:10 EDT [facility] HN LAB POC COMMENT (GLUCOSE) Test Performed by Nursing Services 06/26/2023 1:10 EDT [facility] Blood CAPILLARY BLOOD / Unknown 06/26/2023 1:09 EDT 06/26/2023 1:10 EDT Khushi Young MD POINT OF CARE TEST ORDERABLES [facility] [address] [place] [address] * PHOSPHORUS (06/26/2023 1:09 EDT) Phosphorus 3.7 2.5 - 4.5 mg/dL 06/26/2023 1:27 EDT [facility] Blood VENOUS BLOOD / Unknown Venipuncture / Unknown 06/26/2023 1:09 EDT 06/26/2023 1:14 EDT Khushi Young MD CHEMISTRY & BLOOD G ORDERABLES Performing Organization Address [facility] Co de Phone Number [facility] [address] [place] [address] * MAGNESIUM (06/26/2023 1:09 EDT) Magnesium 1.7 1.7 - 2.8 mg/dL 06/26/2023 1:27 EDT [facility] Blood VENOUS BLOOD / Unknown Venipuncture / Unknown 06/26/2023 1:09 EDT 06/26/2023 1:14 EDT Khushi Young MD CHEMISTRY & BLOOD G ORDERABLES Performing Organization Address [facility] de Phone Number [facility] [address] [place] [address] * EEG WITH PROLONGED BEDSIDE VIDEO MONITORING (06/25/2023 23:59 EDT) Narrative [facility] POINT OF CARE - 06/25/2023 23:59 EDT Jarrell Coats MD ? 06/27/2023 11:13 [facility] ??Name: [facility] ?? [address] [place] [address] ? : 1955 [place], [place] ?Date: 06/25/2023 Video-Electroencephalographic Monitoring Report Referring Physician: Love Zhou MD Study Number: [id number] Clinical Indication: A 68 year old male admitted with shock with seizure like movements. Video EEG requested to rule out seizures. Medications: Current Facility-Administered Medications: ??alteplase (CATHFLO ACTIVASE) injection 2 mg, 2 mg, intercatheter, PRN, Wandy Piper MD ??aspirin EC tablet 81 mg, 81 mg, oral, DAILY, Khushi Young MD, 81 mg at 06/26/2311 ??cefTRIAXone (ROCEPHIN) 2,000 mg in sodium chloride (NS MBP) 50 mL IVPB, 2,000 mg, intravenous, DAILY, Alec Rizo MD ??citalopram (CELEXA) tablet 20 mg, 20 mg, oral, DAILY, Khushi Young MD, 20 mg at 06/26/23 0911 ??dextrose 50 % solution, , , , ??DOBUTamine (DOBUTREX) 500 mg in D5W 250 mL infusion, 5 mcg/kg/min, intravenous, CONTINUOUS, Alec Rizo MD, Last Rate: 12 mL/hr at 06/26/23 0900, 5 mcg/kg/min at 06/26/23 0900 ??fentaNYL citrate (PF) injection 25 mcg, 25 mcg, intravenous, Q4H, Khushi Young MD ??heparin 1,000 unit/mL injection 2,400 Units, 30 Units/kg (Adjusted), intravenous, PRN, 2,400 Units at 06/26/23 0556 OR heparin 1,000 unit/mL injection 1,200 Units, 15 Units/kg (Adjusted), intravenous, PRN, Wandy Piper MD ??heparin in 1/2 NS 25,000 unit/250 mL infusion, 13 Units/kg/hr (Adjusted), intravenous, CONTINUOUS, Wandy Piper MD, Last Rate: 10 mL/hr at 06/26/23 0900, 13 Units/kg/hr at 06/26/23 0900 ??iohexoL (OMNIPAQUE 350) solution 100 mL, 100 mL, intravenous, Once in imaging, Ruben Walker MD ??lidocaine (PF) 10 mg/mL (1 %) injection 2 mg, 2 mg, intradermal, PRN, Alec Rizo MD ??magnesium sulfate 2 g in water 50 mL, 2 g, intravenous, PRN, Alec Rizo MD ??Multivitamins with minerals + ferrous gluconate (CENTRUM) oral solution 15 mL, 15 mL, feeding tube, DAILY, Khushi Young MD, 15 mL at 06/26/23910 ??norepinephrine (LEVOPHED) 8 mg in NS 250 mL infusion, 0-40 mcg/min, intravenous, CONTINUOUS, Alec Rizo MD, Last Rate: 18.8 mL/hr at 06/26/23899, 10 mcg/min at 06/26/23899 ??pantoprazole (PROTONIX) tablet 40 mg, 40 mg, oral, DAILY, Khushi Young MD, 40 mg at 06/26/23910 ??papain-alpha amylase-cellulase (CLOG ZAPPER) 2-5 mL, 2-5 mL, feeding tube, PRN, Khushi Young MD ??polyethylene glycol 3350 (MIRALAX) packet 17 g, 17 g, oral, DAILY, Alec Rizo MD, 17 g at 06/26/23910 ??promote, , per g tube, CONTINUOUS, Khushi Young MD, Last Rate: 30 mL/hr at 06/26/23899, Rate Verify at 06/26/23899 ??propOFol (DIPRIVAN) 1000 mg in 100 mL infusion, 5-83 mcg/kg/min, intravenous, CONTINUOUS, Alec Rizo MD, Last Rate: 19.3 mL/hr at 06/26/23899, 40 mcg/kg/min at 06/26/23899 ??senna (SENOKOT) tablet 2 Tablet, 2 Tablet, oral, BID PRN OR sennosides (SENOKOT) syrup 17.6 mg, 10 mL, per ng tube, BID PRN, Alec Rizo MD Technical Description: Continuous digital video-digital electroencephalographic monitoring is performed. Silver/silver chloride EEG electrodes are placed according to the International 10-20 system as well as anterior temporal electrodes, a CPz recording reference and FCz ground contract. An ECG channel is also monitored. Caregivers are encouraged to maintain an event diary and to press and Event Button in the event of a seizure-like spell (Target Event). The entire EEG dataset is reviewed by the attending physician. No pain assessment for this procedure is necessary. Findings: 1. The monitoring period begins on 06/25/2023 at 23:28 and ends 23:30 on 06/26/2023. 2. The patient is intubated and on sedation with propofol. The background is symmetric and initially mostly discontinuous. There are bursts of 1 to 2 seconds of mild to moderate mixed frequencies interrupting a largely attenuated background every 3-5 seconds. There is no sleep architecture and no reactivity or variability. 3. No seizures are recorded. Impression: Abnormal recording with evidence of severe diffuse cerebral dysfunction that is non-specific and in large part likely related to sedation effect though cannot exclude a contribution from more systemic co-morbidities. No seizures have been recorded to date. Jarrell Coats MD ABPN Certified, Neurology and Clinical Neurophysiology Alec Rizo MD NEUROLOGY ORDERABLES Performing Organization Address City/[facility]/ZIP Co de Phone Number [facility] POINT OF CARE * PATIENT RE-TYPE (06/25/2023 21:19 EDT) Pathologist [facility] ABO A 06/25/2023 21:50 EDT [facility] BLOOD BANK Rh Factor Positive 06/25/2023 21:50 EDT [facility] BLOOD BANK Blood VENOUS BLOOD / Unknown Venipuncture / Unknown 06/25/2023 21:19 EDT 06/25/2023 21:34 EDT Wandy Piper MD BLOOD BANK TEST S [facility] BLOOD BANK [address] [address] * (ABNORMAL) POCT GLUCOSE, INTERFACED (06/25/2023 21:17 EDT) Glucose, POC 131(H) 70 - 100 mg/dL 06/25/2023 21:18 EDT [facility] LABORATORY SERVICES HN LAB POC COMMENT (GLUCOSE) Test Performed by Nursing Services 06/25/2023 21:18 EDT [facility] [facility] Blood CAPILLARY BLOOD / Unknown 06/25/2023 21:17 EDT 06/25/2023 21:18 EDT Alec Rizo MD POINT OF CARE TEST O RDERABLES Performing Organization Address [facility] Co de Phone Number [facility] [address] [place] [address] * HEPARIN LEVEL - UNFRACTIONATED HEPARIN (06/25/2023 21:16 EDT) Heparin Level-UFH <0.04 Therapeutic Range: 0.30 - 0.70 IU/mL 06/25/2023 22:05 EDT [facility] Comment:Unfractionated hepar in therapeutic range = 0.3-0.7 IU/ml - This test is not intended for monitoring direct Xa inhibitors, direct thrombin inhibitors, or fondaparinux.- Exogenous ATIII is NOT supplied in this assay. For unexpected or persistently low levels, consider measuring patient's ATIII level. Results will be overestimated in the presence of direct Xa inhibitors (rivaroxaban, apixaban, edoxaban). Blood VENOUS BLOOD / Unknown Venipuncture / Unknown 06/25/2023 21:16 EDT 06/25/2023 21:25 EDT Narrative [facility] - 06/25/2023 22:05 EDT Sample retested, result confirmed Wandy Piper MD HEMATOLOGY & PF 4 ORDERABLES Performing Organization Address [facility] Co de Phone Number [facility] [address] [place] [address] * (ABNORMAL) BASIC METABOLIC PANEL (BMP) (06/25/2023 21:16 EDT) Sodium 128(L) 136 - 145 mmol/L 06/25/2023 21:35 EDT [facility] Potassium 5.1(H) 3.5 - 5.0 mmol/L 06/25/2023 21:35 EDT [facility] Chloride 97 96 - 110 mmol/L 06/25/2023 21:35 EDT [facility] CO2 Total 20(L) 22 - 32 mmol/L 06/25/2023 21:35 [facility] Anion Gap 11 5 - 14 mmol/L 06/25/2023 21:35 [facility] Glucose 123(H) 70 - 99 mg/dl 06/25/2023 21:35 [facility] Calcium 7.1(L) 8.5 - 10.5 mg/dL 06/25/2023 21:35 [facility] BUN 39(H) 10 - 26 mg/dL 06/25/2023 21:35 [facility] Creatinine 2.50(H) 0.66 - 1.25 mg/dL 06/25/2023 21:35 [facility] eGFR 27(L) >60 mL/min/1.73 m2 06/25/2023 21:35 [facility] Blood VENOUS BLOOD / Unknown Venipuncture / Unknown 06/25/2023 21:16 EDT 06/25/2023 21:23 EDT Alec Rizo MD CHEMISTRY & BLOOD GA S ORDERABLES Performing Organization Address City/State/[facility] Co de Phone Number [facility] [address] [place] [address] * (ABNORMAL) BACTERIAL CULTURE/SMEAR, RESPIRATORY (06/25/2023 21:16 EDT) Organism ID Few usual nina-pharyngeal deanna no Staphylococcus aureus or Pseudomonas species isolated. 06/27/2023 7:24 EDT [facility] Smear No Neutrophils Seen(A) 06/27/2023 7:24 EDT [facility] Smear Few Squamous Epithelial Cells(A) 06/27/2023 7:24 EDT [facility] Smear No bacteria seen(A) 06/27/2023 7:24 EDT [facility] Aspirate SPECIMEN FROM TRACHEA OBTAINED BY ASPIRATION / Unknown 06/25/2023 21:16 EDT 06/25/2023 21:31 EDT Charanjit Taylor MD MICROBIOLOGY - GENER AL ORDERABLES Performing Organization Address City/[facility]/ZIP Co de Phone Number [facility] [address] [place] [address] * (ABNORMAL) BLOOD GASES, VENOUS (06/25/2023 21:16 EDT) pH, Venous 7.38 7.31 - 7.41 06/25/2023 21:31 EDT [facility] pCO2, Venous 35(L) 41 - 51 mmHg 06/25/2023 21:31 EDT [facility] pO2, Venous 53(H) 30 - 50 mmHg 06/25/2023 21:31 EDT [facility] tCO2, Venous 21(L) 22 - 28 mmol/L 06/25/2023 21:31 EDT [facility] Temperature 36.2 C 06/25/2023 21:31 EDT [facility] O2 Saturation, Venous 84 60 - 85 % 06/25/2023 21:31 T [facility] Oxygen Therapy (FIO2) 40.0 % 06/25/2023 21:31 [facility] Base Level -4.80(L) -2.00 - 3.00 mmol/L 06/25/2023 21:31 EDT [facility] Blood VENOUS BLOOD / Unknown Venipuncture / Unknown 06/25/2023 21:16 EDT 06/25/2023 21:23 EDT Alec Rizo MD CHEMISTRY & BLOOD GA S ORDERABLES [facility] [address] [place] [address] * (ABNORMAL) LACTIC ACID (06/25/2023 21:16 EDT) Lactic Acid 2.7(HH) <=2.0 mmol/L 06/25/2023 21:43 EDT [facility] Blood VENOUS BLOOD / Unknown Venipuncture / Unknown 06/25/2023 21:16 EDT 06/25/2023 21:23 EDT Alec Rizo MD CHEMISTRY & BLOOD GA S ORDERABLES Performing Organization Address City/[facility]/ZIP Co de Phone Number [facility] [address], [place] [id number] * (ABNORMAL) TROPONIN I (06/25/2023 21:16 EDT) Troponin I (ng/mL) 0.154(H) <0.034 ng/mL 06/25/2023 21:47 EDT [facility] Blood VENOUS BLOOD / Unknown Venipuncture / Unknown 06/25/2023 21:16 EDT 06/25/2023 21:23 EDT Narrative [facility] - 06/25/2023 21:47 EDT The results of this assay can be falsely lowered due to the consumption of Biotin. Alec Rizo MD CHEMISTRY & BLOOD GA S ORDERABLES Performing Organization Address [facility] Co de Phone Number [facility] [address] [place] [address] * CT ABDOMEN PELVIS W CONTRAST (06/25/2023 20:34 EDT) Anatomical Region Laterality Modality Body, Abdomen, Pelvis, Abdomen and Pelvis Computed Tomography 06/26/2023 9:20 EDT Impressions 06/26/2023 9:20 EDT 1. ??Diffuse concentric bladder wall thickening with adjacent fluid which can be seen with urinary tract infection. Clinical correlation with urinalysis is recommended. 2. ??Ill-defined wedge-shaped low-attenuation foci in the right kidney, which could represent an age-indeterminate renal infarct or pyelonephritis in the appropriate clinical setting. Clinical correlation with urinalysis is recommended. 3. ??Multiple nondistended loops of small bowel filled with fluid favored related to shock etiology given patient history; however, enteritis cannot entirely be excluded. The bowel appears well perfused with no evidence of pneumatosis, portal venous gas, or free air. 4. ??Moderate volume peritoneal free fluid and diffuse body wall edema, nonspecific, but could also represent sequela of shock. 5. ??Age indeterminant mild compression deformity of the superior endplate of L2 with no evidence of retropulsion of fracture fragments or involvement of the posterior elements. 6. ??Atherosclerosis with fusiform infrarenal aortic dilation up to 3.5 cm. 7. ??Cholelithiasis. I have personally reviewed the images and the above interpretation and agree with the findings. [id number] Narrative 06/26/2023 9:[address] ABDOMEN PELVIS W CONTRAST ??06/25/2023 8:04 PM Signs and Symptoms/Comments: Sepsis of unclear etiology; Technique: CT of the abdomen and pelvis was performed following the administration of intravenous contrast. This CT used either dose modulation and/or iterative reconstruction techniques to lower radiation dose. Comparison: None Findings: Lower chest: A dedicated CT angiogram of the chest was performed concurrently. Please see separate report for details. Liver: Normal hepatic enhancement. Smooth hepatic contours. No concerning focal hepatic lesion. Gallbladder: Cholelithiasis. Small volume pericholecystic fluid. Nondistended gallbladder with no evidence of wall thickening. Bile ducts: No biliary ductal dilatation. Spleen: Small lobulated spleen which could be related to patient's volume status. No concerning splenic lesion. Pancreas: No concerning pancreatic lesion or ductal dilatation. Adrenal glands: No adrenal mass. Kidneys, ureters, bladder: Bilateral renal cortical atrophy with scattered areas of scarring. Ill-defined wedge-shaped hypodensity along the posterior interpolar cortex and lower pole of the right kidney (axial 97 and 115). Additional scattered hypodensities too small definitively characterize on CT. No urinary tract calculi or hydroureteronephrosis. [place] catheter decompresses the bladder. There is diffuse concentric bladder wall thickening with adjacent fluid. Reproductive organs: Unremarkable prostate. Symmetric seminal vesicles. Bowel: Transesophageal tube tip terminates in the gastric body. Dense dependent radiopaque material partially opacifies the gastric body and fundus, unchanged as compared to earlier phase on CT angio chest performed concurrently. Mild distention of the gastric antrum. No evidence of obstruction. Multiple nondistended loops of small bowel filled with fluid. The bowel appears well perfused with no evidence of pneumatosis, free air, or portal venous gas. Few scattered noninflamed colonic diverticula. Peritoneal cavity: Moderate volume abdominal free fluid, nonspecific. No free air. Lymph nodes: No enlarged lymph nodes meeting size criteria. Vascular: Extensive calcified atherosclerotic plaque of the tortuous left femoral artery central catheter is present with tip terminating in the left external iliac artery. Fusiform dilation of the infrarenal aorta beginning approximately 3 cm inferior to the left renal artery origin and extending to 1 cm above the bifurcation with a maximum diameter of 3.5 cm. Abdominal wall: Diffuse body wall edema. No bowel containing hernia. Musculoskeletal: Age indeterminant compression deformity of the superior endplate of L2. No evidence of retropulsion of fracture fragments or involvement of the posterior elements. Multilevel degenerative changes of the imaged spine including mild retrolisthesis of L5 on S1. No concerning osseous lesion. Remote healed right rib fracture. 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 Procedure Note Ruben Ponce MD - 06/26/2023 CT ABDOMEN PELVIS W CONTRAST 06/25/2023 8:04 PM Signs and Symptoms/Comments: Sepsis of unclear etiology; Technique: CT of the abdomen and pelvis was performed following theadministration of intravenous contrast. This CT used either dose modulation and/or iterative reconstructiontechniques to lower radiation dose. Comparison: None Findings: Lower chest: A dedicated CT angiogram of the chest was performedconcurrently. Please see separate report for details. Liver: Normal hepatic enhancement. Smooth hepatic contours. No concerningfocal hepatic lesion. Gallbladder: Cholelithiasis. Small volume pericholecystic fluid.Nondistended gallbladder with no evidence of wall thickening. Bile ducts: No biliary ductal dilatation. Spleen: Small lobulated spleen which could be related to patient's volumestatus. No concerning splenic lesion. Pancreas: No concerning pancreatic lesion or ductal dilatation. Adrenal glands: No adrenal mass. Kidneys, ureters, bladder: Bilateral renal cortical atrophy with scatteredareas of scarring. Ill-defined wedge-shaped hypodensity along theposterior interpolar cortex and lower pole of the right kidney (axial 97and 115). Additional scattered hypodensities too small definitivelycharacterize on CT. No urinary tract calculi or hydroureteronephrosis.[place] catheter decompresses the bladder. There is diffuse concentricbladder wall thickening with adjacent fluid. Reproductive organs: Unremarkable prostate. Symmetric seminal vesicles. Bowel: Transesophageal tube tip terminates in the gastric body. Densedependent radiopaque material partially opacifies the gastric body andfundus, unchanged as compared to earlier phase on CT angio chest performedconcurrently. Mild distention of the gastric antrum. No evidence ofobstruction. Multiple nondistended loops of small bowel filled with fluid.The bowel appears well perfused with no evidence of pneumatosis, free air,or portal venous gas. Few scattered noninflamed colonic diverticula. Peritoneal cavity: Moderate volume abdominal free fluid, nonspecific. Nofree air. Lymph nodes: No enlarged lymph nodes meeting size criteria. Vascular: Extensive calcified atherosclerotic plaque of the tortuous leftfemoral artery central catheter is present with tip terminating in theleft external iliac artery. Fusiform dilation of the infrarenal aortabeginning approximately 3 cm inferior to the left renal artery origin andextending to 1 cm above the bifurcation with a maximum diameter of 3.5cm. Abdominal wall: Diffuse body wall edema. No bowel containing hernia. Musculoskeletal: Age indeterminant compression deformity of the superiorendplate of L2. No evidence of retropulsion of fracture fragments orinvolvement of the posterior elements. Multilevel degenerative changes ofthe imaged spine including mild retrolisthesis of L5 on S1. No concerningosseous lesion. Remote healed right rib fracture. 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 IMPRESSION 1. Diffuse concentric bladder wall thickening with adjacent fluid whichcan be seen with urinary tract infection. Clinical correlation withurinalysis is recommended. 2. Ill-defined wedge-shaped low-attenuation foci in the right kidney,which could represent an age-indeterminate renal infarct or pyelonephritisin the appropriate clinical setting. Clinical correlation with urinalysisis recommended. 3. Multiple nondistended loops of small bowel filled with fluid favoredrelated to shock etiology given patient history; however, enteritis cannotentirely be excluded. The bowel appears well perfused with no evidence ofpneumatosis, portal venous gas, or free air. 4. Moderate volume peritoneal free fluid and diffuse body wall edema,nonspecific, but could also represent sequela of shock. 5. Age indeterminant mild compression deformity of the superior endplateof L2 with no evidence of retropulsion of fracture fragments orinvolvement of the posterior elements. 6. Atherosclerosis with fusiform infrarenal aortic dilation up to 3.5cm. 7. Cholelithiasis. I have personally reviewed the images and the above interpretation andagree with the findings. [id number] Alec Rizo [place] [facility] [place] * CT ANGIO CHEST PE PROTOCOL (06/25/2023 20:34 EDT) Anatomical Region Laterality Modality Chest Computed Tomogra phy 06/26/2023 6:42 EDT Impressions 06/26/2023 6:42 EDT 1. No evidence of acute or chronic pulmonary embolism. 2. Right lower lobe atelectasis with regions of distal mucous plugging and questionable heterogeneous enhancement raises the possibility of superimposed infection. Additional mild bronchiolitis suspected within the upper lobes. 3. Bilateral pleural effusions, moderate on the right and small in the left. 4. Biatrial enlargement. Some component of the peribronchovascular thickening and effusions may be related to heart failure/pulmonary edema, with additional findings of anasarca and ascites. 5. Endotracheal tube tip terminates about 1.5 cm from the sidra, consider slight retraction. Transesophageal tube, esophageal temperature probe, and bilateral IJ central lines are properly positioned. 6. There are some top normal mediastinal lymph nodes, favored to be reactive. I have personally reviewed the images and the above interpretation and agree with the findings. [id number] Narrative 06/26/2023 6:[address] ANGIO CHEST PE PROTOCOL ??06/25/2023 8:04 PM Clinical History/Comments: Sepsis of unclear etiology. Low-Med prob of PE. Assess for any infiltrate.; Technique: CT angiogram of the chest was performed with the IV administration of contrast material during the pulmonary arterial phase of enhancement. 3D advanced post-processing was performed utilizing a combination of MIP and MPR techniques with physician participation and supervision. This CT used either dose modulation and/ or iterative reconstruction techniques to lower radiation dose. Comparison: Chest x-ray performed earlier today Findings: Opacification of the pulmonary vasculature is good. No acute or chronic emboli are seen within the pulmonary arterial vasculature. Lower neck: Partially visualized bilateral IJ central lines, the tips terminate both superior atrial caval junction. Mediastinum and ayush (non-vascular): There are borderline enlarged upper mediastinal nodes such as right upper paratracheal lymph nodes. There is an esophageal temperature probe and a transesophageal tube in the thoracic esophagus. The sideport of the sump tube is at the level of the GE junction. Cardiovascular: Cardiomegaly with enlarged right and left atria. Top normal pericardial fluid. Severe coronary artery calcium and moderate calcium of the thoracic aorta. Lungs and airways: There is consolidation of the majority of the right lower lobe. Within the inferior portions, the consolidated lung has heterogeneous parenchyma enhancement, which is less impressive on the more delayed CT of the abdomen. There are also some dependent consolidations in the left lower lobe, right middle, and bilateral upper lobes adjacent to the pleural effusions, likely relaxation atelectasis. There are some groundglass opacities in the anterior inferior aspect of the right upper lobe and medially in the lingula which are likely infectious. There is some calcified granulomas in the posterior aspect of the right middle lobe. Some tree-in-bud nodules are present in the apices. The large airways are diffusely thickened and there is scattered air plugging predominantly in the right lower lobe. Granulomas within the right middle lobe. Pleura: Moderate left and small right pleural effusions. Upper abdomen (limited to upper abdomen, not optimized for abdominal imaging): See separately dictated CT abdomen. Chest wall soft tissues: Diffuse body wall edema. Lipoma within the right serratus anterior muscle. Bones: Multilevel degenerative changes of the spine. Partially included remote right AC joint injury and left shoulder arthroplasty hardware. Old bilateral rib fractures. Procedure Note Tavo Mcgregor MD - 06/26/2023 CT ANGIO CHEST PE PROTOCOL 06/25/2023 8:04 PM Clinical History/Comments: Sepsis of unclear etiology. Low-Med prob of PE. Assess for anyinfiltrate.; Technique: CT angiogram of the chest was performed with the IV administration ofcontrast material during the pulmonary arterial phase of enhancement. 3Dadvanced post-processing was performed utilizing a combination of MIP andMPR techniques with physician participation and supervision. This CT used either dose modulation and/ or iterative reconstructiontechniques to lower radiation dose. Comparison: Chest x-ray performed earlier today Findings: Opacification of the pulmonary vasculature is good. No acute or chronicemboli are seen within the pulmonary arterial vasculature. Lower neck: Partially visualized bilateral IJ central lines, the tipsterminate both superior atrial caval junction. Mediastinum and ayush (non-vascular): There are borderline enlarged uppermediastinal nodes such as right upper paratracheal lymph nodes. There isan esophageal temperature probe and a transesophageal tube in the thoracicesophagus. The sideport of the sump tube is at the level of the GEjunction. Cardiovascular: Cardiomegaly with enlarged right and left atria. Topnormal pericardial fluid. Severe coronary artery calcium and moderatecalcium of the thoracic aorta. Lungs and airways: There is consolidation of the majority of the rightlower lobe. Within the inferior portions, the consolidated lung hasheterogeneous parenchyma enhancement, which is less impressive on the moredelayed CT of the abdomen. There are also some dependent consolidations inthe left lower lobe, right middle, and bilateral upper lobes adjacent tothe pleural effusions, likely relaxation atelectasis. There are somegroundglass opacities in the anterior inferior aspect of the right upperlobe and medially in the lingula which are likely infectious. There issome calcified granulomas in the posterior aspect of the right middlelobe. Some tree-in-bud nodules are present in the apices. The largeairways are diffusely thickened and there is scattered air pluggingpredominantly in the right lower lobe. Granulomas within the right middlelobe. Pleura: Moderate left and small right pleural effusions. Upper abdomen (limited to upper abdomen, not optimized for abdominalimaging): See separately dictated CT abdomen. Chest wall soft tissues: Diffuse body wall edema. Lipoma within the rightserratus anterior muscle. Bones: Multilevel degenerative changes of the spine. Partially includedremote right AC joint injury and left shoulder arthroplasty hardware. Oldbilateral rib fractures. IMPRESSION 1. No evidence of acute or chronic pulmonary embolism. 2. Right lower lobe atelectasis with regions of distal mucous plugging andquestionable heterogeneous enhancement raises the possibility ofsuperimposed infection. Additional mild bronchiolitis suspected within theupper lobes. 3. Bilateral pleural effusions, moderate on the right and small in theleft. 4. Biatrial enlargement. Some component of the peribronchovascularthickening and effusions may be related to heart failure/pulmonary edema,with additional findings of anasarca and ascites. 5. Endotracheal tube tip terminates about 1.5 cm from the sidra, considerslight retraction. Transesophageal tube, esophageal temperature probe, andbilateral IJ central lines are properly positioned. 6. There are some top normal mediastinal lymph nodes, favored to bereactive. I have personally reviewed the images and the above interpretation andagree with the findings. [id number] Alec Rizo MD [facility] [place] * CT HEAD WO CONTRAST (06/25/2023 20:33 EDT) Anatomical Region Laterality Modality Head Computed Tomogra phy 06/26/2023 12:2 2 EDT Impressions 06/26/2023 12:22 EDT No evidence of acute infarction, intracranial hemorrhage, or mass. I have personally reviewed the images and the above interpretation and agree with the findings. [id number] Narrative 06/26/2023 12:22 EDT EXAM: CT HEAD WO CONTRAST HISTORY: AMS. Shock. Unknown etiology. ?? TECHNIQUE: CT head without contrast. Structured report code: NR.CT01 COMPARISON: None FINDINGS: PARENCHYMA: No evidence of infarction. Dilated perivascular space in left basal ganglia. No parenchymal hemorrhage mild diffuse parenchymal volume loss. Supratentorial white matter hypodensities, nonspecific but likely sequela of chronic microangiopathic changes. No mass or midline shift. EXTRA-AXIAL SPACES: No extra-axial collection. No extra-axial mass. VENTRICULAR SYSTEM: Normal size and configuration. No obstructive hydrocephalus. VESSELS: Limited evaluation without IV contrast. Normal density in the dural venous sinuses. Calcifications in the carotid siphons and intradural vertebral arteries. BONES: No concerning bone lesions. No evidence of fracture. ORBITS: Bilateral lens replacements. PARANASAL SINUSES/MASTOID AIR CELLS: Mural thickening and air-fluid levels in the left maxillary sinus and sphenoid sinus with some opacified ethmoid air cells. mucosal thickening of the posterior middle ear cavities, bilaterally. S EXTRACRANIAL SOFT TISSUES: Unremarkable. Procedure Note Sierra Collins MD - 06/26/2023 EXAM: CT HEAD WO CONTRAST HISTORY: AMS. Shock. Unknown etiology. TECHNIQUE: CT head without contrast. Structured report code: [id number].[email or web address] COMPARISON: None FINDINGS: PARENCHYMA: No evidence of infarction. Dilated perivascular space in left basalganglia. No parenchymal hemorrhage mild diffuse parenchymal volume loss.Supratentorial white matter hypodensities, nonspecific but likely sequelaof chronic microangiopathic changes. No mass or midline shift. EXTRA-AXIAL SPACES: No extra-axial collection. No extra-axial mass. VENTRICULAR SYSTEM: Normal size and configuration. No obstructive hydrocephalus. VESSELS: Limited evaluation without IV contrast. Normal density in the dural venoussinuses. Calcifications in the carotid siphons and intradural vertebralarteries. BONES: No concerning bone lesions. No evidence of fracture. ORBITS: Bilateral lens replacements. PARANASAL SINUSES/MASTOID AIR CELLS: Mural thickening and air-fluid levels in the left maxillary sinus andsphenoid sinus with some opacified ethmoid air cells. mucosal thickeningof the posterior middle ear cavities, bilaterally. S EXTRACRANIAL SOFT TISSUES: Unremarkable. IMPRESSION No evidence of acute infarction, intracranial hemorrhage, or mass. I have personally reviewed the images and the above interpretation andagree with the findings. [id number] Alec Rizo MD IMG CT ORDERABLES * (ABNORMAL) POCT GLUCOSE, INTERFACED (06/25/2023 19:37 EDT) Glucose, POC 151(H) 70 - 100 mg/dL 06/25/2023 19:38 EDT [facility] HN LAB POC COMMENT (GLUCOSE) Test Performed by Nursing Services 06/25/2023 19:38 EDT [facility] Blood CAPILLARY BLOOD / Unknown 06/25/2023 19:37 EDT 06/25/2023 19:38 EDT Alec Rizo MD POINT OF CARE TEST O RDERABLES [facility] [address] [place] [id number] * XR CHEST LINE PLACEMENT (06/25/2023 19:07 EDT) Anatomical Region Laterality Modality Computed Radiogr aphy 06/25/2023 19:3 8 EDT Impressions 06/25/2023 19:38 EDT 1. ??New left IJ central venous catheter with tip in the SVC. 2. ??Otherwise grossly stable exam from 4 hours prior. [id number] Narrative 06/25/2023 19:38 EDT XR CHEST LINE PLACEMENT ??06/25/2023 7:07 PM Clinical History/comments: L IJ placement; Comparison: Radiograph 4 hours prior. Technique: Single portable AP view of the chest. Findings: Lines/tubes: Left IJ central venous catheter with tip in the SVC. Right IJ central venous catheter with tip at a similar level. Endotracheal tube with tip 4 cm above the sidra. Transesophageal tube with tip below the diaphragm. Lungs: Bibasilar opacities. Pleura: Suspect pleural fluid. Cardiac and mediastinal contours: Cardiomegaly. Soft tissues and extrathoracic findings: Normal Bones: Left reverse shoulder arthroplasty partially imaged. Procedure Note Lowell Morris, DO - 06/25/2023 XR CHEST LINE PLACEMENT 06/25/2023 7:07 PM Clinical History/comments: L IJ placement; Comparison: Radiograph 4 hours prior. Technique: Single portable AP view of the chest. Findings: Lines/tubes: Left IJ central venous catheter with tip in the SVC. Right IJcentral venous catheter with tip at a similar level. Endotracheal tubewith tip 4 cm above the sidra. Transesophageal tube with tip below thediaphragm. Lungs: Bibasilar opacities. Pleura: Suspect pleural fluid. Cardiac and mediastinal contours: Cardiomegaly. Soft tissues and extrathoracic findings: Normal Bones: Left reverse shoulder arthroplasty partially imaged. IMPRESSION 1. New left IJ central venous catheter with tip in the SVC. 2. Otherwise grossly stable exam from 4 hours prior. [id number] Roque Correa MD IM DIAGNOSTIC IMAGI NG ORDERABLES * (ABNORMAL) POCT GLUCOSE, INTERFACED (06/25/2023 18:27 EDT) Glucose, POC 158(H) 70 - 100 mg/dL 06/25/2023 18:28 EDT [facility] HN LAB POC COMMENT (GLUCOSE) Test Performed by Nursing Services 06/25/2023 18:28 EDT [facility] Blood CAPILLARY BLOOD / Unknown 06/25/2023 18:27 EDT 06/25/2023 18:28 EDT Alec Rizo MD POINT OF CARE TEST O RDERABLES [facility] [address] [place] [address] * POCT US ED GUIDANCE CVC (06/25/2023 17:54 EDT) Anatomical Region Laterality Modality Other 06/25/2023 17:5 4 EDT Narrative 06/25/2023 19:50 EDT Study Date and Time: 2023-06-25 17:54 Study Author: Charanjit BURGESS Proc Guidance - Central Line - POCUS [facility]: Indications for this focused ultrasound:: ?Select all that apply:: Other ?Other indications:: need for HD Location of Views Obtained & Images Saved: ?Laterality:: Left ?Site of Central Line:: Internal jugular vein ?Other site:: N/A Procedure: ?Guidance: Dynamic ?Technique: Seldinger ?Other technique:: N/A Complications: ?Procedure Complications:: None ?Other Complications:: N/A Interpretation: ?Exam interpretation:: Successful US-guided central line insertion ?Other interpretation or comments:: N/A Confirmatory Study: ?What confirmatory study was performed?: X-Ray, POCUS visualization of catheter/wire in vessel ?Confirmatory study findings/comments:: N/A Signed by Charanjit BURGESS on 2023-06-25 19:50 Procedure Note Charanjit Taylor MD - 06/25/2023 Study Date and Time: 2023-06-25 17:54 Study Author: Charanjit BURGESS Proc Guidance - Central Line - POCUS [facility]: Indications for this focused ultrasound:: Select all that apply:: Other Other indications:: need for HD Location of Views Obtained & Images Saved: Laterality:: Left Site of Central Line:: Internal jugular vein Other site:: N/A Procedure: Guidance: Dynamic Technique: Seldinger Other technique:: N/A Complications: Procedure Complications:: None Other Complications:: N/A Interpretation: Exam interpretation:: Successful US-guided central line insertion Other interpretation or comments:: N/A Confirmatory Study: What confirmatory study was performed?: X-Ray, POCUS visualization ofcatheter/wire in vessel Confirmatory study findings/comments:: N/A Signed by Charanjit BURGESS on 2023-06-25 19:50 Charanjit Taylor MD IMG POCT US ORDERABL ES * (ABNORMAL) POCT GLUCOSE, INTERFACED (06/25/2023 17:12 EDT) Glucose, POC 143(H) 70 - 100 mg/dL 06/25/2023 17:14 EDT [facility] HN LAB POC COMMENT (GLUCOSE) Test Performed by Nursing Services 06/25/2023 17:14 EDT [facility] Blood CAPILLARY BLOOD / Unknown 06/25/2023 17:12 EDT 06/25/2023 17:14 EDT Alec Rizo MD POINT OF CARE TEST O RDERABLES Performing Organization Address [facility] Co de Phone Number [facility] [address] [place] [address] * (ABNORMAL) NT PRO BNP (06/25/2023 17:10 EDT) NT-pro BNP 10,300(H) <299 pg/mL 06/25/2023 19:39 EDT [facility] Comment: In the acute setting NT-proBNP values <300 pg/mL have a 98% NPV for excluding acute heart failure. In outpatient populations, NT-proBNP values <125 have a 99% NPV for excluding heart failure. Blood VENOUS BLOOD / Unknown Venipuncture / Unknown 06/25/2023 17:10 EDT 06/25/2023 17:13 EDT Sandra Sanchez DO CHEMISTRY & BLOOD GA S ORDERABLES Performing Organization Address City/[facility]/ZIP Co de Phone Number [facility] [address] [place] [address] * (ABNORMAL) TROPONIN I (06/25/2023 17:10 EDT) [facility] Troponin I (ng/mL) 0.166(H) <0.034 ng/mL 06/25/2023 18:42 EDT [facility] Blood VENOUS BLOOD / Unknown Venipuncture / Unknown 06/25/2023 17:10 EDT 06/25/2023 17:13 EDT Narrative [facility] - 06/25/2023 18:42 EDT The results of this assay can be falsely lowered due to the consumption of Biotin. Alec Rizo MD CHEMISTRY & BLOOD GA S ORDERABLES [facility] [address], [place] [id number] * (ABNORMAL) BASIC METABOLIC PANEL (BMP) (06/25/2023 17:10 EDT) [facility] Sodium 126(L) 136 - 145 mmol/L 06/25/2023 17:29 [facility] Potassium 6.3(HH) 3.5 - 5.0 mmol/L 06/25/2023 17:29 [facility] Chloride 92(L) 96 - 110 mmol/L 06/25/2023 17:29 [facility] CO2 Total 18(L) 22 - 32 mmol/L 06/25/2023 17:29 [facility] Anion Gap 16(H) 5 - 14 mmol/L 06/25/2023 17:29 [facility] Glucose 129(H) 70 - 99 mg/dl 06/25/2023 17:29 [facility] Calcium 7.2(L) 8.5 - 10.5 mg/dL 06/25/2023 17:29 [facility] BUN 44(H) 10 - 26 mg/dL 06/25/2023 17:29 [facility] Creatinine 3.07(H) 0.66 - 1.25 mg/dL 06/25/2023 17:29 EDT [facility] eGFR 21(L) >60 mL/min/1.73 m2 06/25/2023 17:29 EDT [facility] Blood VENOUS BLOOD / Unknown Venipuncture / Unknown 06/25/2023 17:10 EDT 06/25/2023 17:13 EDT Alec Rizo MD CHEMISTRY & BLOOD GA S ORDERABLES Performing Organization Address [facility]/ZIP Co de Phone Number [facility] [address] [place] [phone] * (ABNORMAL) BLOOD GASES, VENOUS (06/25/2023 17:10 EDT) pH, Venous 7.38 7.31 - 7.41 06/25/2023 17:24 T [facility] pCO2, Venous 31(L) 41 - 51 mmHg 06/25/2023 17:24 T [facility] pO2, Venous 28(L) 30 - 50 mmHg 06/25/2023 17:24 [facility] tCO2, Venous 19(L) 22 - 28 mmol/L 06/25/2023 17:24 T [facility] Temperature 35.7 C 06/25/2023 17:24 [facility] O2 Saturation, Venous 50(L) 60 - 85 % 06/25/2023 17:24 EDT [facility] Oxygen Therapy (FIO2) 0.4 % 06/25/2023 17:24 T [facility] Base Level -6.70(L) -2.00 - 3.00 mmol/L 06/25/2023 17:24 T [facility] Blood VENOUS BLOOD / Unknown Venipuncture / Unknown 06/25/2023 17:10 EDT 06/25/2023 17:13 EDT Alec Rizo MD CHEMISTRY & BLOOD GA S ORDERABLES [facility] [address] [place] [address] * (ABNORMAL) LACTIC ACID (06/25/2023 17:10 EDT) Lactic Acid 4.4(HH) <=2.0 mmol/L 06/25/2023 17:29 EDT [facility] Blood VENOUS BLOOD / Unknown Venipuncture / Unknown 06/25/2023 17:10 EDT 06/25/2023 17:13 EDT Alec Rizo MD CHEMISTRY & BLOOD GA S ORDERABLES Performing Organization Address [facility]/ZIP Co de Phone Number [facility] [address] [place] [address] * BACTERIAL CULTURE, BLOOD (06/25/2023 15:24 EDT) Organism ID No Growth at 5 days 06/30/2023 15:46 EDT [facility] Blood VENOUS BLOOD / Unknown Venipuncture / Unknown 06/25/2023 15:24 EDT 06/25/2023 15:35 EDT Alec Rizo MD MICROBIOLOGY - GENER AL ORDERABLES Performing Organization Address [facility] Co de Phone Number [facility] [address] [place] [address] * BACTERIAL CULTURE, BLOOD (06/25/2023 15:12 EDT) Organism ID No Growth at 5 days 06/30/2023 15:46 EDT [facility] Blood VENOUS BLOOD / Unknown Venipuncture / Unknown 06/25/2023 15:12 EDT 06/25/2023 15:35 EDT Alec Rizo MD MICROBIOLOGY - GENER AL ORDERABLES Performing Organization Address City/[facility]/ZIP Co de Phone Number [facility] [address] [place] [address] * (ABNORMAL) POCT GLUCOSE, INTERFACED (06/25/2023 14:47 EDT) Pathologist [facility] Glucose, POC 144(H) 70 - 100 mg/dL 06/25/2023 14:48 EDT [facility] HN LAB POC COMMENT (GLUCOSE) Test Performed by Nursing Services 06/25/2023 14:48 EDT [facility] Blood CAPILLARY BLOOD / Unknown 06/25/2023 14:47 EDT 06/25/2023 14:48 EDT Charanjit Taylor MD POINT OF CARE TEST O SEAN [facility] [address] [place] [address] * TRANSTHORACIC ECHO (TTE) COMPLETE W/DOPPLER W/CF W/ CONTRAST (06/25/2023 14:43 EDT) Pathologist [facility] LV Diastolic Volume 147 mL [facility] POINT OF CARE LV Systolic Volume 102 mL [facility] POINT OF CARE Mitral E-wave peak velocity 0.7 m/s [facility] POINT OF CARE Stroke volume (SV), LVOT DP 33 ml [facility] POINT OF CARE LVOT VTI, S 9.6 cm [facility] PO INT OF CARE LVOT peak velocity, S 0.6 m/s [facility] POINT OF CARE LVOT area 3.5 cm2 [facility] POIN T OF CARE LVOT ID, S 2.1 cm [facility] POI NT OF CARE AV LVOT peak gradient 1 mmHg [facility] POINT OF CARE LVOT mean gradient, S 1 mmHg [facility] POINT OF CARE LV ejection fraction, 1-p A4C 36 % [facility] POIN T OF CARE LV ejection fraction, 1-p A2C 24 % [facility] POIN T OF CARE Ascending aorta ID, a-p 3.7 cm [facility] POINT OF CARE EF 30 % [facility] POIN T OF CARE LV ID, ES, PLAX 4.7 2.1 - 4.0 cm [facility] POINT OF CARE LV PW thickness, ED, PLAX 1.1 0.6 - 1.1 cm [facility] POINT OF CARE LV ID, ED, PLAX 5.5 3.5 - 6.0 cm [facility] POINT OF CARE LVIDD BY MMODE 5.5 cm [facility] POINT OF CARE LA volume, ES, BP 191.0 ml [facility] POINT OF CARE LA Atrial Area A2C 46.3 cm2 [facility] POINT OF CARE LA Atrial Length A2C 8.5 cm [facility] POINT OF CARE LA volumes, ES, A4C 192.0 ml [facility] POINT OF CARE LA Atrial Area A4C 46.3 cm2 [facility] POINT OF CARE LA Atrial Length A4C 9.0 cm [facility] POINT OF CARE RA Atrial Volume A4C 178.0 ml [facility] POINT OF CARE RA Atrial Area A4C 40.2 cm2 [facility] POINT OF CARE RA Atrial Length A4C 7.5 cm [facility] POINT OF CARE Pulmonic valve mean velocity, S 0 cm/s [facility] POINT OF CARE LA ID, A-P, ES 4.5 cm [facility] POINT OF CARE LV end-diastolic volume, 1-p A4C 199 ml [facility] POINT OF CARE LV end diastolic volume 1-p A2C 139 ml [facility] POINT OF CARE LV E/e', medial 6.6 [facility] POINT OF CARE LV e', lateral 12.10 m/s [facility] POINT OF CARE LV e', medial 6.60 m/s [facility] POINT OF CARE LVOT mean velocity, S 0.4 m/s [facility] POINT OF CARE Interventricular Septum to Posterior Wall Thickness Ratio 1.3 [facility] P OINT OF CARE Aortic root ID 3.8 cm [facility] POINT OF CARE Aortic valve VTI, S 9.7 cm [facility] POINT OF CARE Aortic valve area VTI 3.4 cm2 [facility] POINT OF CARE Anatomical Region Laterality Modality Ultrasound Narrative 06/25/2023 17:30 EDT ?Left??Ventricle: Left ventricular systolic function was severely decreased with an ejection fraction of ~20%. There was mild concentric hypertrophy of the left ventricle. There was severe diffuse hypokinesis with akinesis of the mid to apical inferoseptal wall, anterosepal wall and apex. There was a possible small LV thrombus associated with the akinetic apex seen with Definity. ?Right??Ventricle: The right ventricular cavity was severely dilated in size. Right ventricular systolic function was severely reduced. ?Right??Atrium: Right atrial cavity was severely dilated. There was a mobile filamentous structure in the RA that appears attached to the intraatrial septum. This may represent a benign strucuture such as a prominent chiari network although thrombus/vegetation etc are on differential. ?Left??Atrium: Left atrial cavity was severely dilated. ?Tricuspid??Valve: There was annular dilation. There was severe tricuspid valve regurgitation. ?Pulmonic??Artery: Pulmonary systolic pressure was increased, >= 40 mmHg. ?IVC/SVC: The inferior vena cava was moderately dilated. The inferior vena cava demonstrated a diameter of ??>21 mm and collapses <50%; therefore, the right atrial pressure is estimated at greater than 15 mmHg. Left Ventricle The left ventricular cavity was normal in size. Left ventricular systolic function was severely decreased with an ejection fraction of ~20%. Left ventricular diastolic parameters were not diagnostic. There was mild concentric hypertrophy of the left ventricle. There was severe diffuse hypokinesis with akinesis of the mid to apical inferoseptal wall, anterosepal wall and apex. There was a possible small LV thrombus associated with the akinetic apex seen with Definity. Right Ventricle The right ventricular cavity was severely dilated in size. Right ventricular systolic function was severely reduced. Right ventricular wall thickness was normal. Left Atrium Left atrial cavity was severely dilated. Right Atrium Right atrial cavity was severely dilated. There was a mobile filamentous structure in the RA that appears attached to the intraatrial septum. This may represent a benign strucuture such as a prominent chiari network although thrombus/vegetation etc are on differential. IVC/SVC The inferior vena cava was moderately dilated. The inferior vena cava demonstrated a diameter of >21 mm and collapses <50%; therefore, the right atrial pressure is estimated at greater than 15 mmHg. Mitral Valve Mitral valve structure was normal. There was mild to moderate mitral regurgitation. There was no significant mitral valve stenosis. Tricuspid Valve There was annular dilation. There was severe tricuspid valve regurgitation. There was no tricuspid valve stenosis. Aortic Valve The aortic valve structure was trileaflet. The aortic leaflets were not thickened. There was no aortic valve stenosis. There was trace aortic valve regurgitation. AV Area VTI: 3.4 cm2. Pulmonic Valve There was no significant pulmonic valve regurgitation. There was no pulmonic valve stenosis. Ascending Aorta The aortic root was normal in size. The ascending aorta was upper limits of normal in size. Pericardium A trivial pericardial effusion was identified. Pulmonic Artery Pulmonary systolic pressure was increased, >= 40 mmHg. Study Details Study status: Routine. Transthoracic echocardiography. M-Mode, complete 2D, complete spectral Doppler, and color Doppler.The study was interpreted by [facility]. Pertinent images and digital data are archived for permanent storage and are available for subsequent review. Scanning was performed from the apical, parasternal, subcostal and suprasternal acoustic windows. Overall the study quality was suboptimal. The study was difficult due to patient clinical status and being on mechanical ventilation. Images were obtained using cardiac ultrasound machine EPIQ #9. Alec Rioz MD CARDIAC ECHO ORDERAB LES * (ABNORMAL) POCT BLOOD GAS, EG6 I-STAT (06/25/2023 14:26 EDT) pH, Venous, i-STAT 7.30(L) 7.31 - 7.41 06/25/2023 14:30 [facility] pCO2, Venous, i-STAT 40(L) 41 - 51 mmHg 06/25/2023 14:30 [facility] pO2, Venous, i-STAT 31 30 - 50 mmHg 06/25/2023 14:30 [facility] TCO2, Venous, i-STAT 21(L) 22 - 28 mmol/L 06/25/2023 14:30 [facility] O2 Saturation, Venous, i-STAT 53(L) 60 - 85 % 06/25/2023 14:30 [facility] Base Excess(+) / Deficit(-), Venous, i-STAT -6(L) -2 - 3 mmol/L 06/25/2023 14:30 [facility] Blood ARTERIAL BLOOD / Unknown 06/25/2023 14:26 EDT 06/25/2023 14:30 EDT Narrative [facility] - 06/25/2023 14:30 EDT Test Performed by Respiratory Alec Rizo MD POINT OF CARE TEST O RDERABLES [facility] [address] [place] [address] * XR CHEST PORTABLE LINE PLACEMENT (06/25/2023 14:17 EDT) Anatomical Region Laterality Modality Chest Computed Radiogr aphy 06/25/2023 14:2 3 EDT Impressions 06/25/2023 14:23 EDT Dense right lower lobe opacification may reflect either pneumonia or atelectasis. There is likely an associated right pleural effusion. Left lower lobe changes are most likely reflective of interstitial edema. Tubes and lines in position as detailed. Probable chronic posttraumatic abnormalities of the distal right clavicle status post left reverse total shoulder arthroplasty. [id number] Narrative 06/25/2023 14:23 EDT XR CHEST PORTABLE LINE PLACEMENT ??06/25/2023 2:07 PM Clinical History/comments: ET tube placement; Comparison: None. Technique: Single portable AP view of the chest. Findings: Lines/tubes: There is an endotracheal tube with its tip in appropriate position above the tracheal sidra. A right internal jugular catheter has its tip in the superior vena cava. There is a nasogastric tube is seen coursing towards the stomach its tip not visualized. Lungs: There is dense airspace consolidation of the right lower lobe. There is left basilar interstitial abnormality. Pleura: A right pleural effusion is likely present. Cardiac and mediastinal contours: The cardiac silhouette appears mildly enlarged. Soft tissues and extrathoracic findings: No significant abnormalities. Bones: There are are post traumatic changes of the distal right clavicle. The patient has undergone prior left reverse total shoulder arthroplasty. Procedure Note Diomedes Aiken MD - 06/25/2023 XR CHEST PORTABLE LINE PLACEMENT 06/25/2023 2:07 PM Clinical History/comments: ET tube placement; Comparison: None. Technique: Single portable AP view of the chest. Findings: Lines/tubes: There is an endotracheal tube with its tip in appropriateposition above the tracheal sidra. A right internal jugular catheter hasits tip in the superior vena cava. There is a nasogastric tube is seencoursing towards the stomach its tip not visualized. Lungs: There is dense airspace consolidation of the right lower lobe.There is left basilar interstitial abnormality. Pleura: A right pleural effusion is likely present. Cardiac and mediastinal contours: The cardiac silhouette appears mildlyenlarged. Soft tissues and extrathoracic findings: No significant abnormalities. Bones: There are are post traumatic changes of the distal right clavicle.The patient has undergone prior left reverse total shoulderarthroplasty. IMPRESSION Dense right lower lobe opacification may reflect either pneumonia oratelectasis. There is likely an associated right pleural effusion. Leftlower lobe changes are most likely reflective of interstitial edema. Tubes and lines in position as detailed. Probable chronic posttraumatic abnormalities of the distal right claviclestatus post left reverse total shoulder arthroplasty. [id number] Alec Rizo MD G DIAGNOSTIC IMAGI NG ORDERABLES * (ABNORMAL) ACUTE HEPATITIS PROFILE (06/25/2023 14:13 EDT) Hep B Surface Ag Negative Negative 06/26/19 12:49 EDT [facility] Hep C Antibody Reactive(A) Negative 12:49 EDT [facility] Comment: Supplemental testing for HCV RNA is ordered to rule out active HCV infection. Hepatitis A Antibody, IgM Negative Negative 06/26/2023 12:49 EDT [facility] Comment:The results of this assay can be falsely lowered due to the consumption of Biotin. Hepatitis B Core Ab, Total Positive(A) Negative 06/26/2023 12:49 T [facility] Comment: A positive result for Hepatitis B Core Antibody (Total) indicates either a remote past infection with Hepatitis B Virus OR a Window period between disappearance of HBsAg and seroconversion to HBsAb. Sample sent to [facility] for Hepatitis B Core IgM to differentiate between acute and past HBV infection. Blood VENOUS BLOOD / Unknown Venipuncture / Unknown 06/25/2023 14:13 EDT 06/25/2023 14:28 EDT Alec Rizo MD CHEMISTRY & BLOOD GA S ORDERABLES [facility] [address] [place] [address] * ACETAMINOPHEN (06/25/2023 14:13 EDT) Acetaminophen <10 See Note ??g/mL 06/25/2023 17:27 EDT [facility] Comment: NOTE: Therapeutic: ??10 - 30 ug/mL Possible Toxicity: ??150 - 200 ug/mL Probable Toxicity: ??>200 ug/mL Blood VENOUS BLOOD / Unknown Venipuncture / Unknown 06/25/2023 14:13 EDT 06/25/2023 14:28 EDT Alec Rizo MD CHEMISTRY & BLOOD GA S ORDERABLES Performing Organization Address [facility] Co de Phone Number [facility] [address] [place] [address] * (ABNORMAL) BILIRUBIN DIRECT/INDIRECT (06/25/2023 14:13 EDT) Pathologist [facility] Conjugated Bilirubin 0.6(H) <=0.3 mg/dL 06/25/2023 17:27 EDT [facility] Unconjugated Bilirubin 0.4 <=1.1 mg/dL 06/25/2023 17:27 EDT [facility] Blood VENOUS BLOOD / Unknown Venipuncture / Unknown 06/25/2023 14:13 EDT 06/25/2023 14:28 EDT Alec Rizo MD CHEMISTRY & BLOOD GA S ORDERABLES Performing Organization Address City/[facility] Co de Phone Number [facility] [address], [place] [phone] * (ABNORMAL) TROPONIN I (06/25/2023 14:13 EDT) Pathologist [facility] Troponin I (ng/mL) 0.157(H) <0.034 ng/mL 06/25/2023 17:18 EDT [facility] Blood VENOUS BLOOD / Unknown Venipuncture / Unknown 06/25/2023 14:13 EDT 06/25/2023 14:28 EDT Narrative [facility] - 06/25/2023 17:18 EDT The results of this assay can be falsely lowered due to the consumption of Biotin. Alec Rizo MD CHEMISTRY & BLOOD GA S ORDERABLES Performing Organization Address City/[facility]/ZIP Co de Phone Number [facility] [address] [place] [address] * CK (06/25/2023 14:13 EDT) CK 250 <=250 U/L 06/25/2023 16:48 EDT [facility] Blood VENOUS BLOOD / Unknown Venipuncture / Unknown 06/25/2023 14:13 EDT 06/25/2023 14:28 EDT Alec Rizo MD CHEMISTRY & BLOOD GA S ORDERABLES Performing Organization Address [facility] Co de Phone Number [facility] [address] [place] [address] * (ABNORMAL) PHOSPHORUS (06/25/2023 14:13 EDT) Phosphorus 6.0(H) 2.5 - 4.5 mg/dL 06/25/2023 16:48 EDT [facility] Blood VENOUS BLOOD / Unknown Venipuncture / Unknown 06/25/2023 14:13 EDT 06/25/2023 14:28 EDT Alec Rizo MD CHEMISTRY & BLOOD GA S ORDERABLES Performing Organization Address [facility] Co de Phone Number [facility] [address], [place] [phone] * (ABNORMAL) D-DIMER (06/25/2023 14:13 EDT) D-Dimer 992(H) <=230 ng/mL DDU 06/25/2023 16:18 EDT [facility] Blood VENOUS BLOOD / Unknown Venipuncture / Unknown 06/25/2023 14:13 EDT 06/25/2023 14:33 EDT Narrative [facility] - 06/25/2023 16:18 EDT Cutoff value for the exclusion of DVT and PE: 230 ng/mL D-dimer units. Alec Rizo MD HEMATOLOGY & PF4 ORD ERABLES Performing Organization Address City/[facility]/ZIP Co de Phone Number [facility] [address] [place] [address] * (ABNORMAL) FIBRINOGEN (06/25/2023 14:13 EDT) [facility] Fibrinogen 150(L) 171 - 384 mg/dL 06/25/2023 16:21 EDT [facility] Blood VENOUS BLOOD / Unknown Venipuncture / Unknown 06/25/2023 14:13 EDT 06/25/2023 14:33 EDT Alec Rizo MD HEMATOLOGY & PF4 ORD ERABLES Performing Organization Address [facility] Co de Phone Number [facility] [address] [place] [address] * STREPTOCOCCUS PNEUMONIAE ANTIGEN, URINE (06/25/2023 14:13 EDT) [facility] Strep Pneumo Ag Detection, Urine Negative Negative 06/25/2023 15:21 EDT [facility] Urine URINE / Unknown Urine Collect / Unknown 06/25/2023 14:13 EDT 06/25/2023 14:37 EDT Alec Rizo MD MICROBIOLOGY - GENER AL ORDERABLES Performing Organization Address [facility] Co de Phone Number [facility] [address] [place] [address] * (ABNORMAL) UA CHEMICAL & SEDIMENT + REFLEX TO CULTURE (06/25/2023 14:13 EDT) Color UA Yellow Colorless, Yellow 06/25/2023 14:48 [facility] Clarity UA Clear Clear 06/25/2023 14:48 [facility] Glucose UA Negative Negative mg/dL 06/25/2023 14:48 [facility] Bilirubin UA Negative Negative 06/25/2023 14:48 [facility] Ketones UA Negative Negative 06/25/2023 14:48 [facility] Specific [place], Urine 1.011 1.001 - 1.030 06/25/2023 14:48 [facility] Blood UA 2+(A) Negative 06/25/2023 14:48 [facility] Urobilinogen UA 1.0 0.2-1.0 mg/dL mg/dL 06/25/2023 14:48 [facility] Nitrite UA Negative Negative 06/25/2023 14:48 [facility] Leukocyte Esterase UA Negative Negative 06/25/2023 14:48 [facility] Protein UA 1+(A) Negative mg/dL 06/25/2023 14:48 [facility] pH, UA 5.5 <8.5 06/25/2023 14:48 [facility] Urine RBC Count, Auto 11 - 50(A) 0 - 2 Cells/HPF 06/25/2023 14:48 [facility] Urine WBC Count, Auto 0 - 3 0 - 3 Cells/HPF 06/25/2023 14:48 [facility] Urine Squamous Count, Auto None Seen None Seen Cells/HPF 06/25/2023 14:48 [facility] Urine Hyaline Cast Count, Auto 11 - 50(A) <=10 Casts/LPF 06/25/2023 14:48 [facility] Urine Bacteria Count, Auto None Seen None Seen Bacteria/HP F 06/25/2023 14:48 [facility] Urine URINE SPECIMEN OBTAINED BY CLEAN CATCH PROCEDURE / Unknown Urine Collect / Unknown 06/25/2023 14:13 EDT 06/25/2023 14:37 EDT Narrative [facility] - 06/25/2023 14:48 EDT NOTE: Reflex to Urine Culture test is not indicated based on Urine Sediment Analysis results. Urine Sediment Analysis results are unreliable on urines that are unrefrigerated for >2 hrs or refrigerated >8 hrs. Alec Rizo MD URINALYSIS ORDERABLE S Performing Organization Address [facility] de Phone Number [facility] [address] [place] [address] * (ABNORMAL) C REACTIVE PROTEIN (06/25/2023 14:13 EDT) C-Reactive Protein 31.9(H) <10.0 mg/L 06/25/2023 15:01 EDT [facility] Blood VENOUS BLOOD / Unknown Venipuncture / Unknown 06/25/2023 14:13 EDT 06/25/2023 14:28 EDT Alec Rizo MD CHEMISTRY & BLOOD GA S ORDERABLES Performing Organization Address [facility] de Phone Number [facility] [address] [place] [id number] * (ABNORMAL) PROCALCITONIN (06/25/2023 14:13 EDT) Procalcitonin 3.37(H) See Note ng/mL 06/25/2023 16:44 EDT [facility] Comment: NOTE: Reference Range: <0.5 ng/mL - Low risk of severe sepsis >2.0 ng/mL - High risk of severe sepsis Blood VENOUS BLOOD / Unknown Venipuncture / Unknown 06/25/2023 14:13 EDT 06/25/2023 14:28 EDT Alec Rizo MD CHEMISTRY & BLOOD GA S ORDERABLES Performing Organization Address [facility] Co de Phone Number [facility] [address] [place] [address] * (ABNORMAL) LACTIC ACID (06/25/2023 14:13 EDT) Pathologist [facility] Lactic Acid 4.8(HH) <=2.0 mmol/L 06/25/2023 14:43 EDT [facility] Blood VENOUS BLOOD / Unknown Venipuncture / Unknown 06/25/2023 14:13 EDT 06/25/2023 14:28 EDT Alec Rizo MD CHEMISTRY & BLOOD GA S ORDERABLES Performing Organization Address City/[facility]/ZIP Co de Phone Number [facility] [address] [place] [address] * TYPE AND SCREEN (06/25/2023 14:13 EDT) [facility] ABO A 06/25/2023 17:09 EDT [facility] Rh Factor Positive 06/25/2023 17:09 EDT [facility] Antibody Screen Negative 06/25/2023 17:09 EDT [facility] Specimen Expires: 06/28/2023 @ 23:59 06/25/2023 17:09 EDT [facility] Blood VENOUS BLOOD / Unknown Venipuncture / Unknown 06/25/2023 14:13 EDT 06/25/2023 14:29 EDT Alec Rizo MD BLOOD BANK TESTS [facility] [address] [facility] [address] * (ABNORMAL) PTT (06/25/2023 14:13 EDT) [facility] PTT 38(H) 26 - 37 secs 06/25/2023 14:59 EDT [facility] Blood VENOUS BLOOD / Unknown Venipuncture / Unknown 06/25/2023 14:13 EDT 06/25/2023 14:33 EDT Alec Rizo MD HEMATOLOGY & PF4 ORD ERABLES Performing Organization Address [facility]/ZIP Co de Phone Number [facility] [address] [place] [address] * (ABNORMAL) PROTIME (06/25/2023 14:13 EDT) Pathologist [facility] I.N.R. 3.8(H) 0.9 - 1.1 Ratio 06/25/2023 14:59 EDT [facility] Pro Time 41.9(H) 9.7 - 12.8 secs 06/25/2023 14:59 EDT [facility] Blood VENOUS BLOOD / Unknown Venipuncture / Unknown 06/25/2023 14:13 EDT 06/25/2023 14:33 EDT Narrative [facility] - 06/25/2023 14:59 EDT Moderate Intensity Coumadin INR = 2.0-3.0 Adjustments in anticoagulant therapy dose should be based on the INR and NOT on the Protime. Alec Rizo MD HEMATOLOGY & PF4 ORD ERABLES Performing Organization Address [facility] Co de Phone Number [facility] [address], [place] [phone] * (ABNORMAL) COMPLETE BLOOD COUNT AND DIFFERENTIAL (06/25/2023 14:13 EDT) [facility] WBC 21.54(H) 4.00 - 10.40 K/cmm 06/25/2023 14:42 EDT [facility] RBC 3.45(L) 4.36 - 5.78 M/cmm 06/25/2023 14:42 EDT [facility] Hemoglobin 8.4(L) 13.8 - 17.3 g/dL 06/25/2023 14:42 EDT [facility] HCT 27.4(L) 39.5 - 50.2 % 06/25/2023 14:42 EDT [facility] MCV 79(L) 81 - 95 fL 06/25/2023 14:42 [facility] MCH 24.3(L) 27.6 - 33.0 pg 06/25/2023 14:42 [facility] Hypochromia 1+ 06/25/2023 14:42 [facility] MCHC 30.7(L) 32.8 - 36.4 g/dL 06/25/2023 14:42 [facility] RDW-CV 20.0(H) <14.2 % 06/25/2023 14:42 [facility] RDW-SD 56.9(H) <46.0 fl 06/25/2023 14:42 [facility] Anisocytosis 2+ 06/25/2023 14:42 [facility] PLT 158 141 - 377 K/cmm 06/25/2023 14:42 [facility] MPV 11.7 9.5 - 12.7 fL 06/25/2023 14:42 [facility] Nucleated Red Blood Cells 2(H) <=0 /100WBC'S 06/25/2023 14:42 [facility] % Neutrophils 91.1 % 06/25/2023 14:42 [facility] % Lymphocytes 3.7 % 06/25/2023 14:42 [facility] % Monocytes 3.8 % 06/25/2023 14:42 [facility] % Eosinophils 0.0 % 06/25/2023 14:42 [facility] % Basophils 0.1 % 06/25/2023 14:42 [facility] % Immature Grans 1.3 % 06/25/19 14:42 [facility] Absolute Neutrophils 19.62(H) 2.20 - 8.85 K/cmm 06/25/2023 14:42 [facility] Absolute Lymphocytes 0.79(L) 1.09 - 3.30 K/cmm 06/25/2023 14:42 [facility] Absolute Monocytes 0.82(H) 0.10 - 0.80 K/cmm 06/25/2023 14:42 [facility] Absolute Eosinophils 0.00(L) 0.03 - 0.61 K/cmm 06/25/2023 14:42 [facility] ABS Basophils 0.02 0.01 - 0.11 K/cmm 06/25/2023 14:42 [facility] Absolute Immature Grans 0.29(H) 0.00 - 0.06 K/cmm 06/25/2023 14:42 [facility] Type of Differential: Auto 06/25/2023 14:42 [facility] Blood VENOUS BLOOD / Unknown Venipuncture / Unknown 06/25/2023 14:13 EDT 06/25/2023 14:28 EDT Alec Rizo MD PACKAGES & DNA PROBE ORDERABLES Performing Organization Address [facility]/State/ZIP Co de Phone Number [facility] [address] [place], [place] [phone] * (ABNORMAL) COMPREHENSIVE METABOLIC PANEL (CMP) (06/25/2023 14:13 EDT) Sodium 126(L) 136 - 145 mmol/L 06/25/2023 16:32 [facility] Potassium 6.4(HH) 3.5 - 5.0 mmol/L 06/25/2023 16:32 [facility] Chloride 93(L) 96 - 110 mmol/L 06/25/2023 16:32 [facility] CO2 Total 17(L) 22 - 32 mmol/L 06/25/2023 16:32 [facility] Glucose 145(H) 70 - 99 mg/dl 06/25/2023 16:32 [facility] BUN 43(H) 10 - 26 mg/dL 06/25/2023 16:32 [facility] Creatinine 2.86(H) 0.66 - 1.25 mg/dL 06/25/2023 16:32 [facility] eGFR 23(L) >60 mL/min/1. 73m2 06/25/2023 16:32 T [facility] Total Protein 5.0(L) 6.3 - 8.2 g/dL 06/25/2023 16:32 [facility] Albumin 2.3(L) 3.4 - 4.9 g/dL 06/25/2023 16:32 [facility] Alkaline Phosphatase 106 38 - 126 U/L 06/25/2023 16:32 [facility] AST >15,000(H ) 15 - 46 U/L 06/25/2023 16:32 [facility] ALT 3,106(H) <50 U/L 06/25/2023 16:32 [facility] Bilirubin, Total 2.2(H) <1.4 mg/dL 06/25/2023 16:32 [facility] Calcium 7.4(L) 8.5 - 10.5 mg/dL 06/25/2023 16:32 [facility] Albumin/Globulin Ratio 0.9(L) 1.0 - 2.5 06/25/2023 16:32 [facility] Anion Gap 16(H) 5 - 14 mmol/L 06/25/2023 16:32 [facility] Blood VENOUS BLOOD / Unknown Venipuncture / Unknown 06/25/2023 14:13 EDT 06/25/2023 14:28 EDT Alec Rizo MD CHEMISTRY & BLOOD GA S ORDERABLES [facility] [address] [place] [address] * MRSA PCR (06/25/2023 14:13 EDT) MRSA/Staph aureus Result No Staphylococcus aureus detected by PCR 06/25/2023 21:04 EDT [facility] Swab BOTH ANTERIOR NARES / Unknown Swab / Unknown 06/25/2023 14:13 EDT 06/25/2023 14:44 EDT Alec Rizo MD MICROBIOLOGY - GENER AL ORDERABLES [facility] [address] [place] [address] * EKG 12-LEAD (06/25/2023 13:57 EDT) 06/25/2023 13:5 7 EDT Narrative [facility] EKG - 06/27/2023 8:34 EDT ? [facility] ? Test Date: ?2023-06-25 Pat Name: ? DERRICK PILOTTE ? Department: ?? [facility] 4 ? Room: ? M408 Gender: ? Male ? 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 [id number] : ?1955 ? Requested By: MARVIN ROSE Order Number: [id number] ? Mike STEVENS: ?? CAN CHRISTINA MD ? Measurements Intervals ?[place] ? Rate: ? 65 ? P: ?0 AR: ? 0 ?QRS: ?51 QRSD: ? 126 ?T: ?258 QT: ? 455 ? QTc: ?474 ? Interpretive Statements ATRIAL fibrillation MODERATE INTRAVENTRICULAR CONDUCTION DELAY ST DEVIATION AND MODERATE T-WAVE ABNORMALITY, CONSIDER ANTEROLATERAL ISCHEMIA I reviewed the tracing and have either agreed or edited the findings in this report. Electronically Signed On 06-27-2023 08:34:26 EDT by CAN CHRISTINA MD. 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 Electronically Signed On 06-27-2023 08:34:26 EDT by CAN FITZPATRICK. Alec Rizo MD CARDIAC ECG ORDERABL ES [facility] EKG * (ABNORMAL) POCT BLOOD GAS, CG8 I-STAT (06/25/2023 12:10 EDT) pH, Venous, i-STAT 7.23(L) 7.31 - 7.41 06/28/2023 8:45 [facility] pCO2, Venous, i-STAT 44 41 - 51 mmHg 06/28/2023 8:45 [facility] pO2, Venous, i-STAT 92(H) 30 - 50 mmHg 06/28/2023 8:45 [facility] TCO2, Venous, i-STAT 20(L) 22 - 28 mmol/L 06/28/2023 8:45 [facility] O2 Saturation, Venous, i-STAT 95(H) 60 - 85 % 06/28/2023 8:45 [facility] Sodium, Venous, i-STAT 125(L) 136 - 145 mmol/L 06/28/2023 8:45 [facility] Potassium, Venous, i-STAT 6.9(HH) 3.5 - 5 mmol/L 06/28/2023 8:45 [facility] Glucose, Venous, i-STAT 183(H) 70 - 100 mg/dL 06/28/2023 8:45 [facility] Hematocrit, Venous, i-STAT 32(L) 40 - 50 % 06/28/2023 8:45 [facility] Ionized Calcium, Venous, i-STAT 0.98(L) 1.12 - 1.32 mmol/L 06/28/2023 8:45 [facility] Base Excess(+) / Deficit(-), Venous, i-STAT -9(L) -2 - 3 mmol/L 06/28/2023 8:45 [facility] Blood VENOUS BLOOD / Unknown 06/25/2023 12:10 EDT 06/28/2023 8:45 EDT Narrative [facility] - 06/28/2023 8:45 EDT Test Performed by [facility] Critical Care Transport Provider Unknown MD POINT OF CARE TEST O RDERABLES [facility] [address] [place] [phone] documented in this encounter Visit Diagnoses Diagnosis Cardiogenic shock ([facility])- Primary Cardiogenic shock JOS (acute kidney injury) ([facility]) Acute kidney failure, unspecified Lactic acidosis Acidosis Shock liver Acute and subacute necrosis of liver Cardiogenic shock ([facility]) Cardiogenic shock Acute hypoxemic respiratory failure ([facility]) Coagulopathy ([facility]) Other and unspecified coagulation defects Encephalopathy Encephalopathy, unspecified DIC (disseminated intravascular coagulation) ([facility]) Defibrination syndrome Type 2 diabetes mellitus with other specified complication, without long-term current use of insulin ([facility]) Acute on chronic systolic heart failure ([facility]) Acute on chronic systolic heart failure Atrial fibrillation, unspecified type ([facility]) Metabolic acidosis Acidosis Hypervolemia, unspecified hypervolemia type Encounter for hemodialysis ([facility]) Encounter for extracorporeal dialysis Hypokalemia Hypopotassemia Hyperphosphatemia Disorders of phosphorus metabolism HAP (hospital-acquired pneumonia) Pneumonia, organism unspecified Hypernatremia Hyperosmolality and/or hypernatremia Hypotension, unspecified hypotension type Scrotal pain Unspecified disorder of male genital organs Leg edema Edema Arm weakness Other musculoskeletal symptoms referable to limbs Ischemic stroke ([facility]) Other chronic pain Acute hypoxemic respiratory failure ([facility]) JOS (acute kidney injury) ([facility]) Acute kidney failure, unspecified Lactic acidosis Acidosis Encephalopathy Encephalopathy, unspecified Shock liver Acute and subacute necrosis of liver DIC (disseminated intravascular coagulation) ([facility]) Defibrination syndrome Type 2 diabetes mellitus Type II or unspecified type diabetes mellitus without mention of complication, not stated as uncontrolled Acute on chronic systolic heart failure ([facility]) Acute on chronic systolic heart failure Atrial fibrillation ([facility]) Atrial fibrillation Hypervolemia Other fluid overload Encounter for hemodialysis ([facility]) Encounter for extracorporeal dialysis Metabolic acidosis Acidosis Hypokalemia Hypopotassemia Hyperphosphatemia Disorders of phosphorus metabolism HAP (hospital-acquired pneumonia) Pneumonia, organism unspecified Hypernatremia Hyperosmolality and/or hypernatremia Hypotension Hypotension, unspecified Scrotal pain Unspecified disorder of male genital organs Leg edema Edema Arm weakness Other musculoskeletal symptoms referable to limbs documented in this encounter Admitting Diagnoses Diagnosis Shock ([facility]) Shock, unspecified documented in this encounter Administered Medications Inactive Administered Medications - up to 3 most recent administrations Medication Order MAR Action Action Date Dose Rate Site acetaminophen (TYLENOL) solution unit dose cup 495 mg 495 mg (rounded from 500 mg), oral, EVERY 6 HOURS, First dose (after last modification) on 07/07/23 at 1630, Until Discontinued, Routine Given 07/11/2023 10:56 EDT 495 mg Given 07/11/2023 3:47 EDT 495 mg Given 07/11/2023 0:28 EDT 495 mg acetaminophen (TYLENOL) solution unit dose cup 495 mg 495 mg (rounded from 500 mg), per ng tube, EVERY 6 HOURS, First dose (after last modification) on Sun07/11/23 at 1630, Until Discontinued, Routine Given 07/14/2023 4 :43 EDT 495 mg Given 07/13/2023 22:11 EDT 495 mg Given 07/13/2023 17:13 EDT 495 mg acetaminophen (TYLENOL) solution unit dose cup 495 mg 495 mg (rounded from 500 mg), oral, EVERY 6 HOURS, First dose (after last modification) on Sun07/14/23 at 1045, Until Discontinued, Routine Given 07/17/2023 5:22 EDT 495 mg Given 07/16/2023 21:54 EDT 495 mg Given 07/16/2023 12:15 EDT 495 mg acetaminophen (TYLENOL) solution unit dose cup 650 mg 650 mg, oral, EVERY 6 HOURS PRN, Starting on Kaur 07/05/23 at 0812, Until 07/07/23 at 1302, Pain, Routine Given 07/07/2023 10:16 EDT 650 mg acetaminophen (TYLENOL) tablet 325 mg 325 mg, oral, 4 TIMES DAILY PRN, Starting on Kaur 08/16/23 at 1425, Until 08/20/23 at 1525, Pain, Routine Given 08/19/2023 22:29 EDT 325 mg Given 08/19/2023 18:33 EDT 325 mg Given 08/19/2023 11:06 EDT 325 mg acetaminophen (TYLENOL) tablet 500 mg 500 mg, oral, EVERY 6 HOURS, First dose (after last modification) on Sun07/17/23 at 0945, Until Discontinued, Routine Given 07/28/2023 6:01 EDT 500 mg Given 07/28/2023 0:56 EDT 500 mg Given 07/27/2023 17:27 EDT 500 mg acetaminophen (TYLENOL) tablet 500 mg 500 mg, oral, NOW X1, 1 dose, On Sun07/27/23 at 2100, Routine Given 07/27/2023 21:03 EDT 500 mg acetaminophen (TYLENOL) tablet 500 mg 500 mg, oral, 4 TIMES DAILY, First dose (after last modification) on Sun07/28/23 at 0800, Until Discontinued, Routine Given 08/15/2023 8:59 EDT 500 mg Given 08/14/2023 21:28 EDT 500 mg Given 08/14/2023 17:37 EDT 500 mg acetaminophen (TYLENOL) tablet 650 mg 650 mg, oral, NOW X1, 1 dose, On Cardinal 08/05/23 at 0600, Routine Given 08/05/2023 5:49 EDT 650 mg acetaminophen (TYLENOL) tablet 650 mg 650 mg, oral, NOW X1, 1 dose, On Kaur 08/16/23 at 0200, Routine Given 08/16/2023 1:43 EDT 650 mg albumin (PLASBUMIN) 25 % infusion 25 g 25 g, intravenous, Administer over 60 Minutes, NOW X1, 1 dose, On Cardinal 07/08/23 at 1615, Routine Given 07/08/2023 17:17 EDT 25 g amino acids-protein hydrolysate (PRO SOURCE NOCARB) packet 30 mL 30 mL, oral, 2 TIMES DAILY, First dose on Sun06/26/23 at 2130, Until Discontinued, Routine Given 06/27/2023 8:40 EDT 30 mL Given 06/26/2023 21:59 EDT 30 mL amino acids-protein hydrolysate (PRO SOURCE NOCARB) packet 30 mL 30 mL, oral, DAILY, First dose on Sun06/30/23 at 0900, Until Discontinued, Routine Given 07/02/2023 8:16 EDT 30 mL Given 07/01/2023 9:48 EDT 30 mL Given 06/30/2023 13:47 EDT 30 mL amino acids-protein hydrolysate (PRO SOURCE NOCARB) packet 60 mL 60 mL, oral, 3 TIMES DAILY, First dose (after last modification) on Sun06/27/23 at 1400, Until Discontinued, Routine Given 06/29/2023 8:33 EDT 60 mL Given 06/28/2023 20:46 EDT 60 mL Given 06/28/2023 13:04 EDT 60 mL amino acids-protein hydrolysate (PRO SOURCE NOCARB) packet 60 mL 60 mL, feeding tube, 2 TIMES DAILY, First dose (after last modification) on Sun07/02/23 at 2100, Until Discontinued, Routine Given 07/13/2023 9:58 EDT 60 mL Given 07/12/2023 21:41 EDT 60 mL Given 07/12/2023 11:14 EDT 60 mL amino acids-protein hydrolysate (PRO SOURCE NOCARB) packet 90 mL 90 mL, oral, 3 TIMES DAILY, First dose (after last modification) on Sun06/29/23 at 1400, Until Discontinued, Routine Given 07/02/2023 8:16 EDT 90 mL Given 07/01/2023 21:40 EDT 90 mL Given 07/01/2023 13:22 EDT 90 mL amiodarone (PACERONE) tablet 400 mg 400 mg, oral, DAILY, First dose on Sun06/30/23 at 0945, Until Discontinued, Routine Given 07/10/2023 9:19 EDT 400 mg Given 07/09/2023 8:59 EDT 400 mg Given 07/08/2023 9:08 EDT 400 mg amiodarone in dextrose 150 mg/100 mL (1.5 mg/mL) IV bolus 150 mg 150 mg, intravenous, Administer over 10 Minutes, NOW X1, 1 dose, On Sun06/29/23 at 1045, Routine Given 06/29/2023 10:56 EDT 150 mg amiodarone in dextrose 360 mg/200 mL (1.8 mg/mL) infusion 1 mg/min (33.3333 mL/hr, rounded to 33.3 mL/hr), intravenous, CONTINUOUS, Starting on Sun06/29/23 at 1045, Until Sun06/29/23 at 1709, Routine Rate Documented 06/29/2023 17:00 EDT 1 mg/min 33.3 mL/hr Rate Documented 06/29/2023 16:00 EDT 1 mg/min 33.3 mL/hr New Bag 06/29/2023 15:22 EDT 1 mg/min 33.3 mL/hr amiodarone in dextrose 360 mg/200 mL (1.8 mg/mL) infusion 0.5 mg/min (16.6667 mL/hr, rounded to 16.7 mL/hr), intravenous, CONTINUOUS, Starting on Sun06/29/23 at 1710, Until Sun06/30/23 at 0922, Routine New Bag 06/30/2023 8:20 EDT 0.5 mg/min 16.7 mL/h r Rate Documented 06/30/2023 6:00 EDT 0.5 mg/min 16.7 mL/hr Rate Documented 06/30/2023 5:00 EDT 0.5 mg/min 16.7 mL/hr aspirin chewable tablet 81 mg 81 mg, oral, DAILY, First dose on Sun06/27/23 at 0900, Until Discontinued, Routine Given 07/11/2023 10:57 EDT 81 mg Given 07/10/2023 9:19 EDT 81 mg Given 07/09/2023 8:58 EDT 81 mg aspirin chewable tablet 81 mg 81 mg, per ng tube, DAILY, First dose (after last modification) on Sun07/12/23 at 0900, Until Discontinued, Routine Given 07/14/2023 8:21 EDT 81 mg Given 07/13/2023 8:28 EDT 81 mg Given 07/12/2023 11:14 EDT 81 mg aspirin chewable tablet 81 mg 81 mg, oral, DAILY, First dose (after last modification) on Sun07/15/23 at 0900, Until Discontinued, Routine Given 08/03/2023 9:04 EDT 81 mg Given 08/02/2023 8:34 EDT 81 mg Given 08/01/2023 8:39 EDT 81 mg aspirin EC tablet 81 mg 81 mg, oral, DAILY, First dose on Sun06/26/23 at 0900, Until Discontinued, Routine Given 06/26/2023 9:11 EDT 81 mg atorvastatin (LIPITOR) tablet 40 mg 40 mg, oral, DAILY, First dose on 07/21/23 at 0900, Until Discontinued, Routine Given 08/20/2023 8:06 EDT 40 mg Given 08/19/2023 8:07 EDT 40 mg Given 08/18/2023 9:45 EDT 40 mg benzonatate (TESSALON) capsule 100 mg 100 mg, oral, NOW X1, 1 dose, On 08/05/23 at 0600, Routine Given 08/05/2023 5:50 EDT 100 mg blood thinner patient education booklet 1 Each 1 Each, other, Once (Without Time Specified), 1 dose, Starting on 08/11/23 at 1409, Until 08/20/23 at 1525, Routine calcium carbonate (TUMS) tablet 500 mg (200 mg elemental calcium) 1 Tablet 1 Tablet, oral, EVERY 6 HOURS, First dose on 07/02/23 at 1500, Until Discontinued, Routine Given 07/02/2023 16:13 EDT 1 Tablet calcium carbonate (TUMS) tablet 500 mg (200 mg elemental calcium) 1 Tablet 1 Tablet, oral, NOW X1, 1 dose, On 07/23/23 at 2230, Routine Given 07/23/2023 23:15 EDT 1 Tablet calcium carbonate suspension 200 mg 200 mg, oral, EVERY 6 HOURS, First dose on 07/02/23 at 2200, Until Discontinued, Routine Given 07/05/2023 10:49 EDT 200 mg Given 07/05/2023 4:46 EDT 200 mg Given 07/04/2023 21:00 EDT 200 mg calcium GLUconate 100 mg/mL (10%) injection 1,000 mg 1,000 mg (1 g), intravenous, NOW X1, 1 dose, On 06/25/23 at 1700, Routine Given 06/25/2023 17:23 EDT 1,000 mg cefTRIAXone (ROCEPHIN) 2,000 mg in sodium chloride (NS MBP) 50 mL IVPB 2,000 mg, intravenous, Administer over 30 Minutes, EVERY 24 HOURS, 1 dose, First dose on 06/25/23 at 1745, Type of Therapy: Empiric, Suspected Indication (Select all that apply): UTI or pyelonephritis, ID Consult: No, Routine Given 06/25/2023 17:38 EDT 2,000 mg cefTRIAXone (ROCEPHIN) 2,000 mg in sodium chloride (NS MBP) 50 mL IVPB 2,000 mg, intravenous, Administer over 30 Minutes, DAILY, 7 doses, First dose on Sun06/26/23 at 1800, Last dose on Sun07/02/23 at 1800, Type of Therapy: Empiric, Suspected Indication (Select all that apply): Other, Other Indication: Sepsis, ID Consult: No, Routine Given 06/26/2023 18:24 EDT 2,000 mg cefTRIAXone (ROCEPHIN) 2,000 mg in sodium chloride (NS MBP) 50 mL IVPB 2,000 mg, intravenous, Administer over 30 Minutes, DAILY, 7 doses, First dose (after last modification) on Sun06/27/23 at 1800, Last dose on Sun07/03/23 at 1800, Type of Therapy: Empiric, Suspected Indication (Select all that apply): Other, Other Indication: Sepsis, ID Consult: No, Routine Given 07/03/2023 17:35 EDT 2,000 mg Given 07/02/2023 18:14 EDT 2,000 mg Given 07/01/2023 17:07 EDT 2,000 mg chlorothiazide (DIURIL) 1,000 mg in dextrose 5% (D5W) 50 mL IVPB 1,000 mg, intravenous, Administer over 10 Minutes, NOW X1, 1 dose, On Sun06/25/23 at 1415, Indication of Use: Patient requires urgent diuresis, STAT Given 06/25/2023 15:49 EDT 1,000 mg chlorothiazide (DIURIL) 1,000 mg in dextrose 5% (D5W) 50 mL IVPB 1,000 mg, intravenous, Administer over 15 Minutes, NOW X1, 1 dose, On Sun06/29/23 at 1045, Indication of Use: Patient requires urgent diuresis, STAT Given 06/29/2023 10:59 EDT 1,000 mg chlorothiazide (DIURIL) 1,000 mg in dextrose 5% (D5W) 50 mL IVPB 1,000 mg, intravenous, Administer over 30 Minutes, NOW X1, 1 dose, On Sun06/30/23 at 0815, Indication of Use: Inadequate response to thiazide/thiazide-like diuretic in conjunction with loop diuretic, Routine Given 06/30/2023 8:41 EDT 1,000 m g chlorothiazide (DIURIL) 1,000 mg in dextrose 5% (D5W) 50 mL IVPB 1,000 mg, intravenous, Administer over 15 Minutes, NOW X1, 1 dose, On Sun07/01/23 at 1030, Indication of Use: Inadequate response to thiazide/thiazide-like diuretic in conjunction with loop diuretic, Routine Given 07/01/2023 10:46 EDT 1,000 mg citalopram (CELEXA) tablet 20 mg 20 mg, oral, DAILY, First dose on Sun06/26/23 at 0900, Until Discontinued, Routine Given 06/30/2023 8:21 EDT 20 mg Given 06/29/2023 8:00 EDT 20 mg Given 06/28/2023 9:46 EDT 20 mg citalopram (CELEXA) tablet 20 mg 20 mg, oral, DAILY, First dose on Sun07/06/23 at 0900, Until Discontinued, Routine Given 07/11/2023 10:57 EDT 20 mg Given 07/10/2023 9:21 EDT 20 mg Given 07/09/2023 8:58 EDT 20 mg citalopram (CELEXA) tablet 20 mg 20 mg, per ng tube, DAILY, First dose (after last modification) on Sun07/12/23 at 0900, Until Discontinued, Routine Given 07/14/2023 8:21 EDT 20 mg Given 07/13/2023 8:28 EDT 20 mg Given 07/12/2023 11:14 EDT 20 mg citalopram (CELEXA) tablet 20 mg 20 mg, oral, DAILY, First dose (after last modification) on Sun07/15/23 at 0900, Until Discontinued, Routine Given 08/20/2023 8:05 EDT 20 mg Given 08/19/2023 8:05 EDT 20 mg Given 08/18/2023 9:45 EDT 20 mg dextrose 10 % (D10W) infusion at 80 mL/hr, intravenous, CONTINUOUS, Starting on Sun07/02/23 at 0845, Until Sun07/02/23 at 1700, Routine Rate Documented 07/02/2023 17:00 EDT 80 mL/hr Rate Documented 07/02/2023 15:00 EDT 80 mL/hr Rate Documented 07/02/2023 14:00 EDT 80 mL/hr dextrose 5 % (D5W) infusion at 100 mL/hr, intravenous, CONTINUOUS, Starting on Sun07/08/23 at 1045, Until Sun07/08/23 at 1638, Routine New Bag 07/08/2023 11:39 EDT 100 mL/hr dextrose 5 % (D5W) infusion at 100 mL/hr, intravenous, CONTINUOUS, Starting on Sun07/08/23 at 1845, Until Sun07/08/23 at 2327, Routine New Bag 07/08/2023 18:28 EDT 100 mL/hr dextrose 5 % (D5W) infusion at 150 mL/hr, 2,000 mL, intravenous, CONTINUOUS, Starting on Sun07/10/23 at 1945, Until Sun07/11/23 at 0829, Routine New Bag 07/11/2023 4:28 EDT 1,000 mL 150 mL/hr New Bag 07/10/2023 20:14 EDT 2,000 mL 150 mL/hr dextrose 5 % (D5W) infusion at 250 mL/hr, 1,000 mL, intravenous, CONTINUOUS, Starting on Sun07/11/23 at 0900, Until Sun07/11/23 at 1322, Routine New Bag 07/11/2023 12:01 EDT 1,000 mL 250 mL/hr Rate Change 07/11/2023 11:00 EDT 250 mL/hr dextrose 5 % (D5W) infusion at 75 mL/hr, intravenous, CONTINUOUS, Starting on Sun07/11/23 at 1515, Until Sun07/12/23 at 1627, Routine New Bag 07/12/2023 15:44 EDT 75 mL/hr Rate Change 07/12/2023 7:25 EDT 75 mL/hr New Bag 07/12/2023 5:49 EDT 250 mL/hr dextrose 5 % (D5W) infusion at 100 mL/hr, intravenous, CONTINUOUS, Starting on Sun07/13/23 at 1100, Until Sun07/13/23 at 2050, Routine New Bag 07/13/2023 19:34 EDT 100 mL/h r New Bag 07/13/2023 10:51 EDT 100 mL/hr dextrose 5 % (D5W) infusion at 100 mL/hr, 1,000 mL, intravenous, CONTINUOUS, Starting on 07/14/23 at 1500, Until 07/15/23 at 0054, Routine New Bag 07/14/2023 22:39 EDT 1,000 mL 100 mL/h r New Bag 07/14/2023 14:55 EDT 1,000 mL 100 mL/hr dextrose 5 % in lactated ringers infusion at 100 mL/hr, 500 mL, intravenous, CONTINUOUS, Starting on Sun07/10/23 at 1000, Until Sun07/10/23 at 1625, Routine New Bag 07/10/2023 11:26 EDT 500 mL 100 mL/hr dextrose 50 % solution 0-50 g 0-50 g, intravenous, NOW X1, 1 dose, On Sun06/25/23 at 1715, STAT, Release Given 06/25/2023 17:22 EDT 25 g dextrose 50 % solution 12.5 g 12.5 g, intravenous, PRN, Starting on Sun07/01/23 at 1702, Until 07/28/23 at 0635, Low Blood Sugar, Routine Given 07/03/2023 9:47 EDT 12.5 g Given 07/03/2023 9:32 EDT 12.5 g Given 07/02/2023 8:11 EDT 25 g dextrose 50 % solution 25 g 25 g, intravenous, NOW X1, 1 dose, On Sun06/28/23 at 2315, Routine Given 06/28/2023 22:59 EDT 25 g dextrose 50 % solution 25 g 25 g, intravenous, NOW X1, 1 dose, On Sun06/29/23 at 0545, Routine Given 06/29/2023 5:34 EDT 25 g dextrose 50 % solution 1 dose, Starting on Kaur 06/28/23 at 2254, Until Kaur 06/28/23 at 2259 diclofenac sodium gel 2 g 2 g, topical, NOW X1, 1 dose, On Sun07/23/23 at 0200, Routine Given 07/23/2023 5:15 EDT 2 g diclofenac sodium gel 2 g 2 g, topical, 2 TIMES DAILY PRN, Starting on 07/23/23 at 0548, Until Sun08/20/23 at 1525, Pain, Routine Given 08/19/2023 18:34 EDT 2 g Bilater al Legs Given 08/19/2023 8:17 EDT 2 g Bilat eral Legs Given 08/18/2023 10:30 EDT 2 g Dimethicone-Zinc Oxide 20-25 % spray,non-aerosol topical, 2 TIMES DAILY, First dose on Sun06/29/23 at 2100, Until Discontinued Given 08/17/2023 10:00 EDT Given 08/16/2023 20:38 EDT Given 08/16/2023 9:23 EDT diphenhydrAMINE-zinc acetate 2-0.1 % cream topical, 3 TIMES DAILY PRN, Starting on 08/11/23 at 0547, Until Sun08/20/23 at 1525, Itching, Irritation Given 08/15/2023 9:02 EDT Given 08/11/2023 8:36 EDT DOBUTamine (DOBUTREX) 500 mg in D5W 250 mL infusion 2.5 mcg/kg/min ? 80.3 kg (6.0225 mL/hr, rounded to 6 mL/hr), intravenous, CONTINUOUS, Starting on Sun06/25/23 at 1900, Until Sun06/27/23 at 1651, Routine Rate Documented 06/27/2023 13:00 EDT 2.5 mcg/kg/min 6 mL/hr Rate Documented 06/27/2023 12:00 EDT 2.5 mcg/kg/min 6 mL/h r Rate Change 06/27/2023 11:46 EDT 2.5 mcg/kg/min 6 mL/hr empagliflozin (JARDIANCE) tablet 10 mg 10 mg, oral, DAILY, First dose on Sun07/17/23 at 1030, Until Discontinued, Indications: chronic heart failure, kidney disease with reduction in GFR, Routine Given 07/20/2023 9:25 EDT 10 mg Given 07/19/2023 11:11 EDT 10 mg Given 07/18/2023 9:53 EDT 10 mg empagliflozin (JARDIANCE) tablet 10 mg 10 mg, oral, DAILY, First dose on Sun07/23/23 at 1115, Until Discontinued, Indications: chronic heart failure, kidney disease with reduction in GFR, Routine Given 08/05/2023 9:04 EDT 10 mg Given 08/04/2023 10:00 EDT 10 mg Given 08/03/2023 9:04 EDT 10 mg enoxaparin (LOVENOX) injection 40 mg 40 mg, subcutaneous, DAILY, First dose on Sun08/08/23 at 0900, Until Discontinued, Routine Given 08/11/2023 11:12 EDT 40 mg Given 08/10/2023 8:25 EDT 40 mg Given 08/09/2023 8:42 EDT 40 mg enoxaparin (LOVENOX) injection 40 mg 40 mg, subcutaneous, DAILY, First dose (after last reorder) on Sun08/12/23 at 0900, Until Discontinued, Routine Given 08/20/2023 8:06 EDT 40 mg Given 08/19/2023 8:04 EDT 40 mg Given 08/18/2023 9:45 EDT 40 mg fentaNYL citrate (PF) injection 25 mcg 25 mcg, intravenous, EVERY 4 HOURS PRN, Starting on Sun06/26/23 at 1100, Until Sun06/26/23 at 2102, Pain, Routine Given 06/26/2023 20:32 EDT 25 mcg fentaNYL citrate (PF) injection 25-50 mcg 25-50 mcg, intravenous, EVERY 1 HOUR PRN, Starting on Sun06/26/23 at 2115, Until Sun06/29/23 at 0734, Pain, Use 50 as needed to control cough and avoid hypotension, Routine Given 06/29/2023 4:38 EDT 50 mcg Given 06/28/2023 18:50 EDT 50 mcg Given 06/28/2023 16:35 EDT 50 mcg fentaNYL citrate (PF) injection 50 mcg 50 mcg, intravenous, NOW X1, 1 dose, On Sun06/26/23 at 1745, Routine Given 06/26/2023 17:45 EDT 50 mcg fentaNYL citrate (PF) injection 50 mcg 50 mcg, intravenous, EVERY 1 HOUR PRN, Starting on Sun06/29/23 at 0734, Until Sun06/29/23 at 1129, Pain, Use 50 as needed to control cough and avoid hypotension, Routine Given 06/29/2023 9:44 EDT 50 mcg Given 06/29/2023 7:52 EDT 50 mcg fentaNYL citrate (PF) injection 50-75 mcg 50-75 mcg, intravenous, EVERY 1 HOUR PRN, Starting on Sun06/29/23 at 1128, Until Sun07/03/23 at 1449, Pain, Severe Pain 7-10, Moderate Pain 4-6, Use 50 as needed to control cough and avoid hypotension and moderate pain. 75 mcg if Severe., Routine Given 07/03/2023 11:17 EDT 75 mcg Given 07/02/2023 17:29 EDT 50 mcg Given 07/01/2023 14:41 EDT 50 mcg ferrous sulfate 324 mg (65 mg elemental) EC tablet 324 mg 324 mg, oral, EVERY 48 HOURS, First dose on Sun07/18/23 at 0900, Until Discontinued, Routine Given 08/19/2023 8:05 EDT 32 4 mg Given 08/17/2023 8:31 EDT 324 mg Given 08/15/2023 8:59 EDT 324 mg ferrous sulfate 75 mg/mL (JEAN-IN-ABHISHEK) liquid (15 mg/mL elemental iron) 45 mg 45 mg, per ng tube, 2 TIMES DAILY, First dose on Sun07/04/23 at 2100, Until Discontinued, Routine Given 07/14/2023 8:22 EDT 45 mg Given 07/13/2023 20:30 EDT 45 mg Given 07/13/2023 8:29 EDT 45 mg ferrous sulfate 75 mg/mL (JEAN-IN-ABHISHEK) liquid (15 mg/mL elemental iron) 45 mg 45 mg, oral, 2 TIMES DAILY, First dose (after last modification) on 07/14/23 at 2100, Until Discontinued, Routine Given 07/17/2023 9:58 EDT 45 mg Given 07/16/2023 21:55 EDT 45 mg Given 07/16/2023 8:50 EDT 45 mg fluconazole (DIFLUCAN) tablet 200 mg 200 mg, oral, DAILY WITH DINNER, 7 doses, First dose on 08/06/23 at 1700, Last dose on Sun08/12/23 at 1700, Routine Given 08/10/2023 18:06 EDT 200 mg Given 08/09/2023 17:15 EDT 200 mg Given 08/08/2023 16:19 EDT 200 mg fluconazole (DIFLUCAN) tablet 200 mg 200 mg, oral, DAILY WITH DINNER, 7 doses, First dose (after last modification) on 08/11/23 at 1700, Last dose on Sun08/17/23 at 1700, Routine Given 08/17/2023 1 7:28 EDT 200 mg Given 08/16/2023 16:12 EDT 200 mg Given 08/15/2023 17:52 EDT 200 mg fluconazole (DIFLUCAN) tablet 200 mg 200 mg, oral, DAILY WITH DINNER, 2 doses, First dose (after last reorder) on Sun08/18/23 at 1700, Last dose on Sun08/19/23 at 1700, Routine Given 08/19/2023 1 6:12 EDT 200 mg Given 08/18/2023 17:18 EDT 200 mg folic acid (FOLVITE) tablet 1 mg 1 mg, per ng tube, DAILY, First dose on Sun07/04/23 at 1030, Until Discontinued, Routine Given 07/13/2023 15:56 EDT 1 mg Given 07/12/2023 16:44 EDT 1 mg Given 07/11/2023 15:59 EDT 1 mg folic acid (FOLVITE) tablet 1 mg 1 mg, oral, DAILY, First dose (after last modification) on Sun07/14/23 at 1600, Until Discontinued, Routine Given 08/19/2023 16:13 EDT 1 mg Given 08/18/2023 17:18 EDT 1 mg Given 08/17/2023 16:20 EDT 1 mg Free Water (bolus dose) 200 mL 200 mL, per ng tube, EVERY 6 HOURS, First dose (after last modification) on Sun07/08/23 at 1045, Until Discontinued, Routine Given 07/10/2023 5:26 EDT 200 mL Given 07/10/2023 0:44 EDT 200 mL Given 07/09/2023 18:30 EDT 200 mL Free Water (bolus dose) 300 mL 300 mL, per ng tube, EVERY 6 HOURS, First dose (after last modification) on Sun07/10/23 at 1200, Until Discontinued, Routine Given 07/15/2023 6:24 EDT 300 mL Given 07/14/2023 22:35 EDT 300 mL Given 07/14/2023 18:10 EDT 300 mL furosemide (LASIX) 200 mg in sodium chloride (NS) 0.9 % 50 mL IVPB 200 mg, intravenous, Administer over 15 Minutes, NOW X1, 1 dose, On Sun06/25/23 at 1415, STAT Given 06/25/2023 14:53 EDT 200 mg furosemide (LASIX) 200 mg in sodium chloride (NS) 0.9 % 50 mL IVPB 200 mg, intravenous, Administer over 15 Minutes, NOW X1, 1 dose, On Sun06/29/23 at 1045, STAT Given 06/29/2023 11:31 EDT 200 mg furosemide (LASIX) 200 mg in sodium chloride (NS) 0.9 % 50 mL IVPB 200 mg, intravenous, Administer over 15 Minutes, NOW X1, 1 dose, On Sun07/01/23 at 1030, Routine Given 07/01/2023 10:46 EDT 200 mg furosemide (LASIX) 200 mg in sodium chloride (NS) 0.9 % 50 mL IVPB 200 mg, intravenous, Administer over 60 Minutes, NOW X1, 1 dose, On Sun07/01/23 at 1815, Routine Given 07/01/2023 18:16 EDT 200 mg furosemide (LASIX) injection 200 mg 200 mg, intravenous, NOW X1, 1 dose, On 06/30/23 at 0815, Routine Given 06/30/2023 8:20 EDT 200 mg furosemide (LASIX) injection 40 mg 40 mg, intravenous, NOW X1, 1 dose, On 07/07/23 at 1330, Routine Given 07/07/2023 14:19 EDT 40 mg furosemide (LASIX) injection 60 mg 60 mg, intravenous, NOW X1, 1 dose, On Sun08/05/23 at 1200, Routine Given 08/05/2023 12:03 EDT 60 mg furosemide (LASIX) injection 60 mg 60 mg, intravenous, NOW X1, 1 dose, On Sun08/07/23 at 0800, Routine Given 08/07/2023 8:10 EDT 60 mg furosemide (LASIX) injection 60 mg 60 mg, intravenous, NOW X1, 1 dose, On Sun08/07/23 at 1800, Routine Given 08/07/2023 18:47 EDT 60 mg furosemide (LASIX) injection 60 mg 60 mg, intravenous, NOW X1, 1 dose, On Sun08/08/23 at 1530, Routine Given 08/08/2023 16:19 EDT 60 mg gabapentin (NEURONTIN) capsule 300 mg 300 mg, oral, 2 TIMES DAILY, First dose (after last modification) on Sun07/22/23 at 1015, Until Discontinued, Routine Given 08/06/2023 8:33 EDT 300 mg Given 08/05/2023 21:11 EDT 300 mg Given 08/05/2023 9:05 EDT 300 mg gabapentin (NEURONTIN) capsule 300 mg 300 mg, oral, 3 TIMES DAILY, First dose (after last modification) on 08/06/23 at 1400, Until Discontinued, Routine Given 08/20/2023 8:05 EDT 300 mg Given 08/19/2023 20:13 EDT 300 mg Given 08/19/2023 14:08 EDT 300 mg gabapentin (NEURONTIN) solution 300 mg 300 mg, per ng tube, 2 TIMES DAILY, First dose on Sun07/11/23 at 1200, Until Discontinued, Routine Given 07/14/2023 9:50 EDT 300 mg Given 07/13/2023 20:28 EDT 300 mg Given 07/13/2023 8:28 EDT 300 mg gabapentin (NEURONTIN) solution 300 mg 300 mg, oral, 2 TIMES DAILY, First dose (after last modification) on 07/14/23 at 2100, Until Discontinued, Routine Given 07/21/2023 21:10 EDT 300 mg Given 07/21/2023 9:16 EDT 300 mg Given 07/20/2023 20:52 EDT 300 mg haloperidol lactate (HALDOL) injection 2 mg 2 mg, intravenous, EVERY 6 HOURS PRN, Starting on Sun06/29/23 at 1027, Until Sun06/29/23 at 1128, Agitation, Routine Given 06/29/2023 11:15 EDT 2 mg heparin 1,000 unit/mL injection 1,200 Units 1,200 Units (rounded from 1,180.5 Units = 15 Units/kg ? 78.7 kg Adjusted weight), intravenous, PRN, Starting on Sun06/25/23 at 2219, Until Sun06/29/23 at 0224, CRRT Heparin Protocol, Routine Given 06/27/2023 13:19 EDT 1,200 Units heparin 1,000 unit/mL injection 2,400 Units 2,400 Units (rounded from 2,361 Units = 30 Units/kg ? 78.7 kg Adjusted weight), intravenous, NOW X1, 1 dose, On Sun06/25/23 at 2245, Routine Given 06/25/2023 22:28 EDT 2,400 Units heparin 1,000 unit/mL injection 2,400 Units 2,400 Units (rounded from 2,361 Units = 30 Units/kg ? 78.7 kg Adjusted weight), intravenous, PRN, Starting on Sun06/25/23 at 2219, Until Sun06/29/23 at 0224, CRRT Heparin Protocol, Routine Given 06/27/2023 0:59 EDT 2,400 Units Given 06/26/2023 12:45 EDT 2,400 Units Given 06/26/2023 5:56 EDT 2,400 Units heparin 1,000 unit/mL injection 2,800 Units 2,800 Units (rounded from 2,754.5 Units = 35 Units/kg ? 78.7 kg Adjusted weight), intravenous, PRN, Starting on Sun06/29/23 at 0224, Until Sun07/01/23 at 0258, Other, Per Heparin Protocol, Routine Given 06/30/2023 4:17 EDT 2,800 Units Given 06/29/2023 6:33 EDT 2,800 Units heparin 1,000 unit/mL injection 5,500 Units 5,500 Units (rounded from 5,496 Units = 80 Units/kg ? 68.7 kg Adjusted weight), intravenous, NOW X1, 1 dose, On 08/04/23 at 1615, STAT Given 08/04/2023 16:40 EDT 5,500 Units heparin in 1/2 NS 25,000 unit/250 mL infusion 13 Units/kg/hr ? 78.7 kg Adjusted weight (10.231 mL/hr, rounded to 10 mL/hr), intravenous, CONTINUOUS, Starting on Sun06/25/23 at 2245, Until Sun06/26/23 at 1241, Routine Rate Documented 06/26/2023 12:00 EDT 13 Units/kg/hr 10 mL/hr Rate Documented 06/26/2023 11:00 EDT 13 Units/kg/hr 10 mL/ hr Rate Documented 06/26/2023 10:00 EDT 13 Units/kg/hr 10 mL/ hr heparin in 1/2 NS 25,000 unit/250 mL infusion 21 Units/kg/hr ? 78.7 kg Adjusted weight (16.527 mL/hr, rounded to 16.5 mL/hr), intravenous, CONTINUOUS, Starting on Sun06/26/23 at 1300, Until Sun06/29/23 at 0224, Routine Rate Documented 06/29/2023 2:00 EDT 21 Units/kg/hr 16.5 mL/hr Rate Documented 06/29/2023 1:00 EDT 21 Units/kg/hr 16.5 mL /hr New Bag 06/29/2023 0:59 EDT 21 Units/kg/hr 16.5 mL/hr heparin in 03/06 NS 25,000 unit/250 mL infusion 25 Units/kg/hr ? 78.7 kg Adjusted weight (19.675 mL/hr, rounded to 19.5 mL/hr), intravenous, CONTINUOUS, Starting on Sun06/29/23 at 0245, Until Sun07/01/23 at 0258, STAT Rate Documented 06/30/2023 21:00 EDT 25 Units/kg/hr 19.5 mL/hr New Bag 06/30/2023 20:31 EDT 25 Units/kg/hr 19.5 mL/hr Rate Documented 06/30/2023 20:00 EDT 25 Units/kg/hr 19.5 m L/hr heparin in 03/06 NS 25,000 unit/250 mL infusion 18 Units/kg/hr ? 68.7 kg Adjusted weight (12.366 mL/hr, rounded to 12.5 mL/hr), intravenous, CONTINUOUS, Starting on Sun08/04/23 at 1615, Until Sun08/05/23 at 0717, STAT New Bag 08/04/2023 16:40 EDT 18 Units/kg/hr 12.5 mL/hr heparin injection 5,000 Units 5,000 Units, subcutaneous, EVERY 12 HOURS, First dose (after last modification) on Sun07/06/23 at 1145, Until Discontinued, Routine Given 07/10/2023 9:18 EDT 5,000 Units Given 07/09/2023 21:16 EDT 5,000 Units Given 07/09/2023 9:00 EDT 5,000 Units heparin injection 5,000 Units 5,000 Units, subcutaneous, EVERY 8 HOURS, First dose on Sun07/14/23 at 1600, Until Discontinued, Routine Given 07/25/2023 6:45 EDT 5,000 Units Given 07/24/2023 21:02 EDT 5,000 Units Given 07/24/2023 13:05 EDT 5,000 Units heparin injection 5,000 Units 5,000 Units, subcutaneous, EVERY 8 HOURS, First dose on Sun07/26/23 at 1600, Until Discontinued, Routine Given 08/03/2023 23:43 EDT 5,000 Units Given 08/03/2023 16:34 EDT 5,000 Units Given 08/03/2023 9:05 EDT 5,000 Units heparin injection 5,000 Units 5,000 Units, subcutaneous, EVERY 8 HOURS, First dose on Sun08/05/23 at 1600, Until Discontinued, Routine Given 08/07/2023 8:10 EDT 5,000 Units Given 08/06/2023 23:45 EDT 5,000 Units Given 08/06/2023 16:47 EDT 5,000 Units heparin injection 5,000 Units 5,000 Units, subcutaneous, EVERY 8 HOURS, 1 dose, First dose (after last modification) on Sun08/07/23 at 1600, Routine Given 08/07/2023 16:47 EDT 5,000 Units hydrALAZINE (APRESOLINE) tablet 10 mg 10 mg, per ng tube, 3 TIMES DAILY, First dose on Sun07/03/23 at 1030, Until Discontinued, Routine Given 07/14/2023 8:23 EDT 10 mg Given 07/13/2023 20:29 EDT 10 mg Given 07/11/2023 21:41 EDT 10 mg hydrALAZINE (APRESOLINE) tablet 10 mg 10 mg, oral, 3 TIMES DAILY, First dose (after last modification) on 07/14/23 at 1400, Until Discontinued, Routine Given 07/14/2023 20:21 EDT 10 mg HYDROcodone-acetaminophen (NORCO) 10-325 mg tablet 1 Tablet 1 Tablet, oral, 4 TIMES DAILY, First dose on Sun08/15/23 at 1200, Until Discontinued, Routine Given 08/20/2023 11:43 EDT 1 Tablet Given 08/20/2023 8:05 EDT 1 Tablet Given 08/19/2023 20:13 EDT 1 Tablet indapamide (LOZOL) tablet 5 mg 5 mg, oral, DAILY, First dose on Sun07/01/23 at 1815, Until Discontinued, Routine Given 07/04/2023 8:30 EDT 5 mg Given 07/03/2023 8:56 EDT 5 mg Given 07/02/2023 8:15 EDT 5 mg insulin regular (NOVOLIN R) injection 5 Units 5 Units, intravenous, NOW X1, 1 dose, On 06/25/23 at 1715, STAT, Release Given 06/25/2023 17:22 EDT 5 Units iohexoL (OMNIPAQUE 350) solution 100 mL 100 mL, intravenous, Once in imaging, 1 dose, Starting on Sun07/01/23 at 0056, Until Sun07/01/23 at 0112, Routine, Imaging Protocol Orders Given 07/01/2023 1:12 EDT 100 mL iohexoL (OMNIPAQUE 350) solution 100 mL 100 mL, intravenous, Once in imaging, 1 dose, Starting on Sun08/03/23 at 2156, Until Sun08/03/23 at 2215, Routine, Imaging Protocol Orders Given 08/03/2023 22:15 EDT 95 mL iohexoL (OMNIPAQUE 350) solution 100 mL 100 mL, intravenous, Once in imaging, 1 dose, Starting on 08/04/23 at 0849, Until 08/04/23 at 0903, Routine, Imaging Protocol Orders Given 08/04/2023 9:03 EDT 65 mL iohexoL (OMNIPAQUE 350) solution 150 mL 150 mL, intravenous, Once in imaging, 1 dose, Starting on Sun06/25/23 at 2004, Until Sun06/25/23 at 2034, Routine, Imaging Protocol Orders Given 06/25/2023 20:34 EDT 100 mL ipratropium-albuteroL (DUONEB) 0.5 mg-3 mg(2.5 mg base)/3 mL nebulizer solution 3 mL 3 mL, nebulization, EVERY 4 HOURS PRN, Starting on Sun06/27/23 at 1143, Until Sun07/24/23 at 0632, Wheezing, Routine Given 06/28/2023 8:14 EDT 3 mL Given 06/27/2023 12:04 EDT 3 mL ipratropium-albuteroL (DUONEB) 0.5 mg-3 mg(2.5 mg base)/3 mL nebulizer solution 3 mL 3 mL, nebulization, NOW X1, 1 dose, On Sun07/06/23 at 1515, STAT Given 07/06/2023 15:05 EDT 3 mL iron sucrose (VENOFER) 500 mg, sodium chloride (NS) 0.9 % 250 mL IVPB 500 mg, intravenous, Administer over 240 Minutes, NOW X1, 1 dose, On Sun07/23/23 at 1415, Routine New Bag 07/23/2023 15:10 EDT 500 mg 62.5 mL/ hr iron sucrose (VENOFER) 500 mg, sodium chloride (NS) 0.9 % 250 mL IVPB 500 mg, intravenous, Administer over 240 Minutes, NOW X1, 1 dose, On Sun07/29/23 at 1230, Routine New Bag 07/29/2023 13:04 EDT 500 mg isosorbide DInitrate (ISORDIL) tablet 10 mg 10 mg, per ng tube, 3 TIMES DAILY, First dose on Sun07/03/23 at 1030, Until Discontinued, Routine Given 07/14/2023 8:21 EDT 10 mg Given 07/13/2023 20:29 EDT 10 mg Given 07/13/2023 15:56 EDT 10 mg isosorbide DInitrate (ISORDIL) tablet 10 mg 10 mg, oral, 3 TIMES DAILY, First dose (after last modification) on Sun07/14/23 at 1400, Until Discontinued, Routine Given 07/17/2023 9:30 EDT 10 mg Given 07/16/2023 21:54 EDT 10 mg Given 07/16/2023 15:40 EDT 10 mg ketoconazole (NIZORAL) 2 % cream topical, DAILY, 18 doses, First dose on Sun08/08/23 at 0900, Last dose on Sun08/25/23 at 0900 Given 08/15/2023 9:02 EDT Given 08/13/2023 8:56 EDT Given 08/12/2023 9:57 EDT lactated ringers (LR) infusion at 150 mL/hr, 500 mL, intravenous, CONTINUOUS, Starting on Sun08/03/23 at 1915, Until Sun08/04/23 at 0027, Routine New Bag 08/03/2023 21:08 EDT 500 mL 150 mL/hr lactated ringers BOLUS 500 mL 500 mL, intravenous, NOW X1, 1 dose, On 07/04/23 at 1145, Routine New Bag 07/04/2023 11:34 EDT 500 mL lactated ringers BOLUS 500 mL 500 mL, intravenous, NOW X1, 1 dose, On Kaur 07/19/23 at 1600, Routine New Bag 07/19/2023 15:35 EDT 500 mL lactated ringers BOLUS 500 mL 500 mL, intravenous, NOW X1, 1 dose, On Sun07/20/23 at 1115, Routine New Bag 07/20/2023 11:15 EDT 500 mL lactated ringers BOLUS 500 mL 500 mL, intravenous, NOW X1, 1 dose, On Sun07/20/23 at 1600, Routine New Bag 07/20/2023 15:51 EDT 500 mL 999 mL/hr lactated ringers BOLUS 500 mL 500 mL, intravenous, NOW X1, 1 dose, On 07/21/23 at 1115, Routine New Bag 07/21/2023 11:04 EDT 500 mL lidocaine (PF) 10 mg/mL (1 %) injection 5 mg 5 mg, intradermal, PRN, 2 doses, Starting on 07/01/23 at 1004, Until Tu07/17/23 at 1012, line placement, Routine Given 07/02/2023 17:41 EDT 5 mg Right Arm lidocaine 5 % (LIDODERM) patch 1 Patch 1 Patch, transdermal, Administer over 12 Hours, DAILY, First dose on Sun07/05/23 at 0900, Until Discontinued, Routine Patch Applied 08/20/2023 8:07 EDT 1 Patch Back Patch Applied 08/19/2023 8:09 EDT 1 Patch Ba ck Patch Applied 08/18/2023 9:44 EDT 1 Patch Le ft Arm lidocaine 5 % (LIDODERM) patch 1 Patch 1 Patch, transdermal, Administer over 12 Hours, DAILY, First dose on Sun08/08/23 at 1030, Until Discontinued, Routine Patch Applied 08/20/2023 8:06 EDT 1 Patch Left Arm Patch Applied 08/19/2023 8:05 EDT 1 Patch Le ft Arm Patch Applied 08/18/2023 9:44 EDT 1 Patch Ba ck losartan (COZAAR) tablet 12.5 mg 12.5 mg, oral, DAILY, First dose on Sun07/18/23 at 1030, Until Discontinued, Routine Given 07/19/2023 12:28 ED T 12.5 mg Given 07/18/2023 12:32 EDT 12.5 mg magnesium oxide (MAG-OX) tablet 400 mg 400 mg, oral, NOW X1, 1 dose, On Kaur 08/09/23 at 1145, Routine Given 08/09/2023 12:45 EDT 400 mg magnesium oxide (MAG-OX) tablet 400 mg 400 mg, oral, NOW X1, 1 dose, On Sun08/10/23 at 1415, Routine Given 08/10/2023 15:38 EDT 400 mg magnesium oxide (MAG-OX) tablet 400 mg 400 mg, oral, NOW X1, 1 dose, On 08/11/23 at 1530, Routine Given 08/11/2023 17:15 EDT 400 mg magnesium oxide (MAG-OX) tablet 400 mg 400 mg, oral, NOW X1, 1 dose, On 08/12/23 at 1315, Routine Given 08/12/2023 13:44 EDT 400 mg magnesium oxide (MAG-OX) tablet 400 mg 400 mg, oral, NOW X1, 1 dose, On Sun08/15/23 at 1130, Routine Given 08/15/2023 14:14 EDT 400 mg magnesium sulfate 2 g in water 50 mL 2 g, intravenous, Administer over 60 Minutes, PRN, Starting on Sun06/25/23 at 1336, Until Kaur 07/05/23 at 1544, Routine New Bag 06/29/2023 1:07 EDT 2 g New Bag 06/28/2023 7:39 EDT 2 g New Bag 06/26/2023 22:36 EDT 2 g magnesium sulfate 2 g in water 50 mL 2 g, intravenous, Administer over 60 Minutes, NOW X1, 1 dose, On Sun07/03/23 at 0515, Routine New Bag 07/03/2023 5:31 EDT 2 g magnesium sulfate 2 g in water 50 mL 2 g, intravenous, Administer over 60 Minutes, NOW X1, 1 dose, On Sun07/08/23 at 1545, Routine New Bag 07/08/2023 16:44 EDT 2 g magnesium sulfate 2 g in water 50 mL 2 g, intravenous, Administer over 60 Minutes, NOW X1, 1 dose, On Sun07/15/23 at 0715, Routine New Bag 07/15/2023 7:38 EDT 2 g magnesium sulfate 2 g in water 50 mL 2 g, intravenous, Administer over 60 Minutes, NOW X1, 1 dose, On Sun07/17/23 at 1030, Routine New Bag 07/17/2023 1 1:00 EDT 2 g magnesium sulfate 2 g in water 50 mL 2 g, intravenous, Administer over 60 Minutes, NOW X1, 1 dose, On Sun07/18/23 at 0945, Routine New Bag 07/18/2023 1 1:03 EDT 2 g magnesium sulfate 2 g in water 50 mL 2 g, intravenous, Administer over 60 Minutes, NOW X1, 1 dose, On Sun07/20/23 at 0900, Routine New Bag 07/20/2023 9:24 EDT 2 g magnesium sulfate 2 g in water 50 mL 2 g, intravenous, Administer over 60 Minutes, NOW X1, 1 dose, On 07/21/23 at 0845, Routine New Bag 07/21/2023 9:22 EDT 2 g magnesium sulfate 2 g in water 50 mL 2 g, intravenous, Administer over 60 Minutes, NOW X1, 1 dose, On Sun07/22/23 at 0830, Routine New Bag 07/22/2023 9:17 EDT 2 g magnesium sulfate 2 g in water 50 mL 2 g, intravenous, Administer over 60 Minutes, NOW X1, 1 dose, On Sun07/24/23 at 0800, Routine New Bag 07/24/2023 9:24 EDT 2 g magnesium sulfate 2 g in water 50 mL 2 g, intravenous, Administer over 60 Minutes, NOW X1, 1 dose, On Kaur 07/26/23 at 0730, Routine New Bag 07/26/2023 8:31 EDT 2 g magnesium sulfate 2 g in water 50 mL 2 g, intravenous, Administer over 60 Minutes, NOW X1, 1 dose, On 07/28/23 at 0700, Routine New Bag 07/28/2023 8:32 EDT 2 g magnesium sulfate 2 g in water 50 mL 2 g, intravenous, Administer over 60 Minutes, EVERY 4 HOURS, 2 doses, First dose on Sun07/30/23 at 0815, Last dose on Sun07/30/23 at 1200, Routine New Bag 07/30/2023 11:23 EDT 2 g New Bag 07/30/2023 9:34 EDT 2 g magnesium sulfate 500 mg/mL oral solution 2,000 mg 2,000 mg, oral, NOW X1, 1 dose, On Sun08/02/23 at 1900, Routine Given 08/02/2023 21:13 EDT 2,000 mg methocarbamoL (ROBAXIN) tablet 500 mg 500 mg, oral, NOW X1, 1 dose, On 08/11/23 at 2230, Routine Given 08/11/2023 22:30 EDT 500 mg methocarbamoL (ROBAXIN) tablet 500 mg 500 mg, oral, NOW X1, 1 dose, On 08/12/23 at 2345, Routine Given 08/12/2023 23:25 EDT 500 mg metoprolol SUCCinate (TOPROL-XL) tablet 25 mg 25 mg, oral, DAILY, First dose on Sun07/18/23 at 0900, Until Discontinued, Routine Given 07/18/2023 9:44 EDT 25 mg metoprolol SUCCinate (TOPROL-XL) tablet 25 mg 25 mg, oral, DAILY, First dose (after last modification) on Sun07/19/23 at 1300, Until Discontinued, Routine Given 07/20/2023 8:58 EDT 25 mg Given 07/19/2023 13:19 EDT 25 mg metoprolol SUCCinate (TOPROL-XL) tablet 50 mg 50 mg, oral, DAILY, First dose on Sun07/24/23 at 0900, Until Discontinued, Routine Given 08/20/2023 8:05 EDT 50 mg Given 08/19/2023 8:06 EDT 50 mg Given 08/18/2023 10:30 EDT 50 mg metoprolol TARtrate (LOPRESSOR) tablet 12.5 mg 12.5 mg, oral, 2 TIMES DAILY, 3 doses, First dose on Sun07/09/23 at 2100, Last dose on Sun07/10/23 at 2100, Routine Given 07/10/2023 9:18 EDT 12.5 mg Given 07/09/2023 21:16 EDT 12.5 mg metoprolol TARtrate (LOPRESSOR) tablet 12.5 mg 12.5 mg, oral, NOW X1, 1 dose, On Sun07/11/23 at 0045, Routine Given 07/11/2023 0:40 EDT 12.5 mg metoprolol TARtrate (LOPRESSOR) tablet 12.5 mg 12.5 mg, per ng tube, 2 TIMES DAILY, First dose (after last modification) on Sun07/11/23 at 2100, Until Discontinued, Routine Given 07/14/2023 8:21 EDT 12.5 mg Given 07/13/2023 20:28 EDT 12.5 mg Given 07/13/2023 8:28 EDT 12.5 mg metoprolol TARtrate (LOPRESSOR) tablet 12.5 mg 12.5 mg, oral, 2 TIMES DAILY, First dose (after last modification) on Sun07/14/23 at 2100, Until Discontinued, Routine Given 07/17/2023 21:37 EDT 12.5 mg Given 07/17/2023 9:30 EDT 12.5 mg Given 07/16/2023 21:54 EDT 12.5 mg metoprolol TARtrate (LOPRESSOR) tablet 12.5 mg 12.5 mg, oral, NOW X1, 1 dose, On Sun07/21/23 at 1830, Routine Given 07/21/2023 18:11 EDT 12.5 mg metoprolol TARtrate (LOPRESSOR) tablet 12.5 mg 12.5 mg, oral, 2 TIMES DAILY, First dose (after last modification) on Sun07/22/23 at 1115, Until Discontinued, Routine Given 07/23/2023 21:40 EDT 12.5 mg Given 07/23/2023 9:50 EDT 12.5 mg Given 07/22/2023 21:33 EDT 12.5 mg ymlreymv-hqa-gseh fum-folic ac 7.5 mg iron-400 mcg tablet 1 Tablet 1 Tablet, oral, DAILY, First dose on Kaur 07/26/23 at 1045, Until Discontinued, Routine Given 08/20/2023 8:06 EDT 1 Tablet Given 08/19/2023 8:07 EDT 1 Tablet Given 08/18/2023 9:45 EDT 1 Tablet multivitamin (NEPHROVITE) 0.8 mg tablet 1 Tablet 1 Tablet, per ng tube, AT BEDTIME, First dose on Sun06/26/23 at 2100, Until Discontinued, Routine Given 06/26/2023 20:53 EDT 1 Tablet multivitamin (NEPHROVITE) 0.8 mg tablet 1 Tablet 1 Tablet, oral, AT BEDTIME, First dose on Sun06/29/23 at 2100, Until Discontinued, Routine Given 07/11/2023 0:28 EDT 1 Tablet Given 07/09/2023 21:16 EDT 1 Tablet Given 07/08/2023 21:17 EDT 1 Tablet multivitamin (NEPHROVITE) 0.8 mg tablet 1 Tablet 1 Tablet, per ng tube, AT BEDTIME, First dose (after last modification) on Sun07/11/23 at 2100, Until Discontinued, Routine Given 07/13/2023 20:28 EDT 1 Tablet Given 07/12/2023 20:33 EDT 1 Tablet Given 07/11/2023 21:41 EDT 1 Tablet multivitamin (NEPHROVITE) 0.8 mg tablet 1 Tablet 1 Tablet, oral, AT BEDTIME, First dose (after last modification) on 07/14/23 at 2100, Until Discontinued, Routine Given 07/25/2023 21:07 EDT 1 Tablet Given 07/24/2023 21:01 EDT 1 Tablet Given 07/23/2023 21:40 EDT 1 Tablet Multivitamins with minerals + ferrous gluconate (CENTRUM) oral solution 15 mL 15 mL, feeding tube, DAILY, First dose on Sun06/26/23 at 0900, Until Discontinued, Routine, Release Given 06/29/2023 8:01 EDT 15 mL Given 06/28/2023 9:46 EDT 15 mL Given 06/27/2023 8:40 EDT 15 mL norepinephrine (LEVOPHED) 8 mg in NS 250 mL infusion 0-40 mcg/min (0-75 mL/hr), intravenous, CONTINUOUS, Starting on Sun06/25/23 at 1415, Until Kaur 06/28/23 at 0903, Routine Rate Documented 06/27/2023 10:00 EDT 1 mcg/min 1.9 mL/hr Rate Change-ICU/L&D Only 06/27/2023 9:22 EDT 1 mcg/min 1. 9 mL/hr Rate Documented 06/27/2023 9:00 EDT 3 mcg/min 5.6 mL/hr norepinephrine (LEVOPHED) 8 mg in NS 250 mL infusion 0-40 mcg/min (0-75 mL/hr), intravenous, CONTINUOUS, Starting on 4/27/24 at 1015, Until Sun07/04/23 at 1001, Routine Rate Documented 06/30/2023 21:00 EDT 2 mcg/min 3.8 mL/hr Rate Documented 06/30/2023 20:00 EDT 2 mcg/min 3.8 mL/hr Rate Documented 06/30/2023 19:00 EDT 2 mcg/min 3.8 mL/hr norepinephrine (LEVOPHED) in NS 32 mcg/mL 250 mL 8 mg/250 mL (32 mcg/mL) infusion solution 1 dose, Starting on Sun06/25/23 at 1358, Until Sun06/25/23 at 1453 nutren 2.0 at 33 mL/hr, per g tube, CONTINUOUS, Starting on Sun06/29/23 at 1215, Until Sun07/13/23 at 1040, Routine, Release New Bag 07/12/2023 20:49 EDT 33 mL/hr New Bag 07/12/2023 1:40 EDT 33 mL/hr Restarted 07/11/2023 22:16 EDT 33 mL/hr nystatin (MYCOSTATIN) powder topical, 2 TIMES DAILY, 14 doses, First dose on Sun07/11/23 at 2100, Last dose on Sun07/18/23 at 0900 Given 07/18/2023 9:48 ED T Given 07/17/2023 9:32 EDT Given 07/16/2023 22:09 EDT nystatin (MYCOSTATIN) powder topical, 2 TIMES DAILY, 24 doses, First dose on Sun07/30/23 at 0900, Last dose on Sun08/10/23 at 2100 Given 08/07/2023 8:10 ED T Given 08/06/2023 20:51 EDT Given 08/06/2023 9:30 EDT ondansetron (ZOFRAN-ODT) disintegrating tablet 4 mg 4 mg, oral, NOW X1, 1 dose, On Sun07/19/23 at 0300, Routine Given 07/19/2023 2:50 EDT 4 mg oxyCODONE (ROXICODONE) immediate release tablet 10 mg 10 mg, oral, EVERY 4 HOURS PRN, Starting on Sun08/01/23 at 1342, Until Sun08/15/23 at 1113, Severe Pain 7-10, Routine Given 08/15/2023 10:30 EDT 10 mg Given 08/15/2023 6:30 EDT 10 mg Given 08/15/2023 1:33 EDT 10 mg oxyCODONE (ROXICODONE) immediate release tablet 5 mg 5 mg, oral, EVERY 4 HOURS PRN, Starting on Sun08/01/23 at 1120, Until Sun08/01/23 at 1343, Severe Pain 7-10, Routine Given 08/01/2023 11:36 EDT 5 mg oxyCODONE (ROXICODONE) immediate release tablet 5 mg 5 mg, oral, NOW X1, 1 dose, On Kaur 08/16/23 at 0215, Routine Given 08/16/2023 2:17 EDT 5 mg oxyCODONE (ROXICODONE) immediate release tablet 5 mg 5 mg, oral, NOW X1, 1 dose, On Sun08/17/23 at 0500, Routine Given 08/17/2023 4:53 EDT 5 mg oxyCODONE (ROXICODONE) immediate release tablet 5 mg 5 mg, oral, NOW X1, 1 dose, On Sun08/17/23 at 1100, Routine Given 08/17/2023 11:16 EDT 5 mg oxyCODONE (ROXICODONE) immediate release tablet 5 mg 5 mg, oral, NOW X1, 1 dose, On Sun08/18/23 at 0115, Routine Given 08/18/2023 0:59 EDT 5 mg oxyCODONE (ROXICODONE) immediate release tablet 5 mg 5 mg, oral, NOW X1, 1 dose, On Sun08/19/23 at 0145, Routine Given 08/19/2023 1:46 EDT 5 mg oxyCODONE (ROXICODONE) immediate release tablet 5 mg 5 mg, oral, NOW X1, 1 dose, On Sun08/20/23 at 0100, Routine Given 08/20/2023 0:40 EDT 5 mg pantoprazole (PROTONIX) injection 40 mg 40 mg, intravenous, DAILY, First dose on Sun06/27/23 at 0900, Until Discontinued, Routine Given 07/16/2023 8:50 EDT 40 mg Given 07/15/2023 8:05 EDT 40 mg Given 07/14/2023 8:22 EDT 40 mg pantoprazole (PROTONIX) tablet 40 mg 40 mg, oral, DAILY, First dose on Sun06/26/23 at 0900, Until Discontinued, Routine Given 06/26/2023 9:11 EDT 40 mg pantoprazole (PROTONIX) tablet 40 mg 40 mg, oral, DAILY, First dose on Sun07/17/23 at 0900, Until Discontinued, Routine Given 08/20/2023 8:05 EDT 40 mg Given 08/19/2023 8:05 EDT 40 mg Given 08/18/2023 9:45 EDT 40 mg peptamen intense VHP at 50 mL/hr, per g tube, CONTINUOUS, Starting on Sun06/27/23 at 1315, Until Sun06/29/23 at 1156, Routine, Release Rate Documented 06/29/2023 11:00 EDT 50 mL/hr Rate Documented 06/29/2023 10:00 EDT 50 mL/hr Rate Documented 06/29/2023 9:00 EDT 50 mL/hr perflutren lipid microspheres (DEFINITY) 0.165 mg in sodium chloride (PF) 1 mL 0.165 mg, intravenous, NOW X1, 1 dose, On Sun06/25/23 at 1515, Routine Given 06/25/2023 14:45 EDT 2 mL perflutren lipid microspheres (DEFINITY) 0.165 mg in sodium chloride (PF) 1 mL 0.165 mg, intravenous, NOW X1, 1 dose, On Sun06/28/23 at 0945, Routine Given 06/28/2023 9:29 EDT 3 mL perflutren lipid microspheres (DEFINITY) 0.165 mg in sodium chloride (PF) 1 mL 0.165 mg, intravenous, NOW X1, 1 dose, On Sun07/17/23 at 1115, Routine Given 07/17/2023 11:02 EDT 1.5 mL petrolatum (AQUAPHOR NATURAL HEALING) 41 % ointment topical, DAILY, First dose on Sun07/19/23 at 1000, Until Discontinued Given 08/19/2023 9:49 EDT Given 08/17/2023 10:00 EDT Given 08/15/2023 10:00 EDT phenylephrine-lidocaine 0.25 %-3 % (CO-PHENYLCAINE) topical solution 5 mL 5 mL, topical, NOW X1, 1 dose, On Sun06/28/23 at 2245, STAT Given 06/28/2023 22:46 EDT 5 mL phytonadione (VITAMIN K) 10 mg in sodium chloride (NS) 0.9 % 50 mL IVPB 10 mg, intravenous, Administer over 30 Minutes, NOW X1, 1 dose, On Sun06/26/23 at 1115, Routine Given 06/26/2023 1 1:47 EDT 10 mg piperacillin-tazobactam 4.5 g in sodium chloride (NS MBP) 100 mL IVPB 4.5 g, intravenous, Administer over 4 Hours, EVERY 12 HOURS, 14 doses, First dose (after last reorder) on Sun07/06/23 at 1800, Last dose on Sun07/13/23 at 0900, Type of Therapy: Empiric, Suspected Indication (Select all that apply): Other, Other Indication: Concern for hospital acquired PNA, Controlled Antibiotic Has ID Approved? No, Please select the appropriate choice: After 5 pm, Before 8 am, call for approval at 8 am, Routine Given 07/07/2023 9:19 EDT 4.5 g Given 07/06/2023 18:35 EDT 4.5 g piperacillin-tazobactam 4.5 g in sodium chloride (NS MBP) 100 mL IVPB 4.5 g, intravenous, Administer over 4 Hours, EVERY 8 HOURS, 21 doses, First dose (after last modification) on 07/07/23 at 1600, Last dose on 07/14/23 at 0800, Type of Therapy: Empiric, Suspected Indication (Select all that apply): Other, Other Indication: Concern for hospital acquired PNA, Controlled Antibiotic Has ID Approved? No, Please select the appropriate choice: After 5 pm, Before 8 am, call for approval at 8 am, Routine Given 07/14/2023 8:20 EDT 4.5 g Given 07/13/2023 23:44 EDT 4.5 g Given 07/13/2023 15:57 EDT 4.5 g polyethylene glycol 3350 (MIRALAX) packet 17 g 17 g, oral, DAILY, First dose on Sun06/26/23 at 0900, Until Discontinued, Routine Given 06/26/2023 9:11 EDT 17 g polyethylene glycol 3350 (MIRALAX) packet 17 g 17 g, oral, DAILY PRN, Starting on Sun08/15/23 at 0329, Until Sun08/20/23 at 1525, Constipation, Routine Given 08/20/2023 8:15 EDT 17 g potassium chloride (KLOR-CON) packet 20 mEq 20 mEq, oral, 2 TIMES DAILY, 2 doses, First dose on Sun07/10/23 at 1000, Last dose on Sun07/10/23 at 2100, Routine Given 07/11/2023 0:32 EDT 20 mEq Given 07/10/2023 11:27 EDT 20 mEq potassium chloride (KLOR-CON) packet 40 mEq 40 mEq, oral, NOW X1, 1 dose, On Sun07/06/23 at 1130, Routine Given 07/06/2023 15:01 EDT 40 mEq potassium chloride (KLOR-CON) packet 40 mEq 40 mEq, oral, NOW X1, 1 dose, On 07/07/23 at 0815, Routine Given 07/07/2023 9:19 EDT 40 mEq potassium chloride (KLOR-CON) packet 40 mEq 40 mEq, oral, 2 TIMES DAILY, 2 doses, First dose (after last modification) on 07/08/23 at 1045, Last dose on Sun07/08/23 at 2100, Routine Given 07/08/2023 21 :16 EDT 40 mEq potassium chloride (KLOR-CON) packet 40 mEq 40 mEq, oral, NOW X1, 1 dose, On Sun07/11/23 at 0545, Routine Given 07/11/2023 5:59 EDT 40 mEq potassium chloride (KLOR-CON) packet 40 mEq 40 mEq, per ng tube, NOW X1, 1 dose, On Sun07/11/23 at 1500, Routine Given 07/11/2023 15:59 EDT 40 mEq potassium chloride (KLOR-CON) packet 40 mEq 40 mEq, per ng tube, EVERY 4 HOURS, 4 doses, First dose (after last reorder) on Kaur 07/12/23 at 1215, Last dose on Sun07/13/23 at 0000, Routine Given 07/12/2023 23:36 EDT 40 mEq Given 07/12/2023 20:33 EDT 40 mEq Given 07/12/2023 16:44 EDT 40 mEq potassium chloride (KLOR-CON) packet 40 mEq 40 mEq, oral, NOW X1, 1 dose, On Sun08/07/23 at 1800, Routine Given 08/07/2023 18:47 EDT 40 mEq potassium chloride (KLOR-CON) packet 40 mEq 40 mEq, oral, NOW X1, 1 dose, On Sun08/15/23 at 1130, Routine Given 08/15/2023 14:15 EDT 40 mEq potassium chloride in water infusion 20 mEq 20 mEq, intravenous, at 50 mL/hr, EVERY HOUR, 2 doses, First dose on Sun07/03/23 at 0515, Last dose on Sun07/03/23 at 0600, Routine Given 07/03/2023 6:59 EDT 20 mEq 50 mL/hr Given 07/03/2023 5:31 EDT 20 mEq 50 mL/hr potassium chloride in water infusion 20 mEq 20 mEq, intravenous, at 50 mL/hr, PRN, Starting on Kaur 07/05/23 at 0611, Until Kaur 07/05/23 at 1544, hypokalemia, Routine Given 07/05/2023 6:53 EDT 20 mEq 50 mL/hr potassium chloride in water infusion 20 mEq 20 mEq, intravenous, at 50 mL/hr, 2 TIMES DAILY, 2 doses, First dose (after last modification) on Sun07/08/23 at 1045, Last dose on Sun07/08/23 at 2100, Routine Given 07/08/2023 11:58 EDT 20 mEq 50 mL/hr potassium chloride in water infusion 20 mEq 20 mEq, intravenous, at 50 mL/hr, NOW X1, 1 dose, On Sun07/08/23 at 2030, Routine Given 07/08/2023 21:16 EDT 20 mEq 50 mL/hr potassium chloride in water infusion 20 mEq 20 mEq, intravenous, at 50 mL/hr, NOW X1, 1 dose, On Sun07/08/23 at 2230, Routine Given 07/08/2023 23:41 EDT 20 mEq 50 mL/hr potassium chloride in water infusion 20 mEq 20 mEq, intravenous, at 50 mL/hr, NOW X1, 1 dose, On Sun07/11/23 at 0715, Routine Given 07/11/2023 10:56 EDT 20 mEq 50 mL/hr potassium chloride SA (KLOR-CON M20) tablet 20 mEq 20 mEq, oral, EVERY 2 HOURS, 2 doses, First dose (after last reorder) on Sun08/10/23 at 1415, Last dose on Sun08/10/23 at 1615, Routine Given 08/10/2023 18:06 EDT 20 mEq Given 08/10/2023 15:38 EDT 20 mEq potassium chloride SA (KLOR-CON M20) tablet 40 mEq 40 mEq, oral, NOW X1, 1 dose, On Sun06/30/23 at 0330, Routine Given 06/30/2023 4:06 EDT 40 mEq potassium chloride SA (KLOR-CON M20) tablet 40 mEq 40 mEq, oral, NOW X1, 1 dose, On Sun07/04/23 at 0615, Routine Given 07/04/2023 6:18 EDT 40 mEq potassium chloride SA (KLOR-CON M20) tablet 40 mEq 40 mEq, oral, EVERY 2 HOURS, 2 doses, First dose on Sun08/09/23 at 1045, Last dose on Sun08/09/23 at 1245, Routine Given 08/09/2023 13:57 EDT 40 mEq Given 08/09/2023 11:35 EDT 40 mEq potassium chloride SA (KLOR-CON M20) tablet 40 mEq 40 mEq, oral, NOW X1, 1 dose, On Sun08/11/23 at 1530, Routine Given 08/11/2023 17:15 EDT 40 mEq potassium, sodium phosphates (PHOS-NAK) 280-160-250 mg packet 8 mmol 8 mmol (1 Packet), oral, EVERY 6 HOURS, 4 doses, First dose on Sun06/27/23 at 1345, Last dose on Sun06/28/23 at 0600, Routine Given 06/28/2023 5:29 EDT 8 mmol Given 06/27/2023 23:49 EDT 8 mmol Given 06/27/2023 17:17 EDT 8 mmol prochlorperazine (COMPAZINE) tablet 10 mg 10 mg, oral, EVERY 6 HOURS PRN, Starting on 07/21/23 at 1056, Until Sun08/08/23 at 0654, Nausea, Routine Given 08/01/2023 12:50 EDT 10 mg Given 07/31/2023 19:56 EDT 10 mg Given 07/29/2023 13:18 EDT 10 mg prochlorperazine edisylate (COMPAZINE) injection 10 mg 10 mg, intravenous, EVERY 6 HOURS PRN, Starting on 07/21/23 at 1056, Until 07/29/23 at 1214, Nausea, Routine Given 07/28/2023 19:52 EDT 10 mg Given 07/25/2023 13:59 EDT 10 mg Given 07/23/2023 21:48 EDT 10 mg promote at 30 mL/hr, per g tube, CONTINUOUS, Starting on Sun06/25/23 at 2030, Until Sun06/26/23 at 1130, Routine, Release Rate Documented 06/26/2023 11:00 EDT 30 mL/hr Rate Documented 06/26/2023 10:00 EDT 30 mL/hr Rate Documented 06/26/2023 9:00 EDT 30 mL/hr promote at 50 mL/hr, per ng tube, CONTINUOUS, Starting on Sun06/26/23 at 1200, Until Sun06/27/23 at 1255, Routine, Release Rate Documented 06/27/2023 13:00 EDT 50 mL/hr Rate Documented 06/27/2023 12:00 EDT 50 mL/hr Rate Documented 06/27/2023 11:00 EDT 50 mL/hr propOFol (DIPRIVAN) 1000 mg in 100 mL infusion 5-83 mcg/kg/min ? 80.3 kg (2.409-39.9894 mL/hr, rounded to 2.4-40 mL/hr), intravenous, CONTINUOUS, Starting on Sun06/25/23 at 1445, Until Sun07/03/23 at 1450, Routine Rate Documented 07/03/2023 10:00 EDT 10 mcg/kg/min 4.8 mL/hr Rate Documented 07/03/2023 9:00 EDT 10 mcg/kg/min 4.8 mL/h r Rate Documented 07/03/2023 8:00 EDT 10 mcg/kg/min 4.8 mL/h r ramelteon (ROZEREM) tablet 8 mg 8 mg, per ng tube, AT BEDTIME, First dose (after last modification) on Sun07/11/23 at 2100, Until Discontinued, Routine Given 07/13/2023 20:29 EDT 8 mg Given 07/12/2023 20:33 EDT 8 mg Given 07/11/2023 21:41 EDT 8 mg ramelteon (ROZEREM) tablet 8 mg 8 mg, oral, AT BEDTIME, First dose (after last modification) on 07/14/23 at 2100, Until Discontinued, Routine Given 08/19/2023 20:13 EDT 8 mg Given 08/18/2023 20:04 EDT 8 mg Given 08/17/2023 20:20 EDT 8 mg rifAXIMin (XIFAXAN) tablet 550 mg 550 mg, oral, 2 TIMES DAILY, 35 doses, First dose on Sun06/27/23 at 2100, Last dose on Sun07/14/23 at 2100, Routine Given 07/11/2023 10:57 EDT 550 mg Given 07/11/2023 0:28 EDT 550 mg Given 07/10/2023 9:19 EDT 550 mg rifAXIMin (XIFAXAN) tablet 550 mg 550 mg, per ng tube, 2 TIMES DAILY, 17 doses, First dose (after last modification) on Sun07/11/23 at 2100, Last dose on Kaur 07/19/23 at 2100, Routine Given 07/14/2023 8:21 EDT 550 mg Given 07/13/2023 20:29 EDT 550 mg Given 07/13/2023 8:28 EDT 550 mg senna (SENOKOT) tablet 1 Tablet 1 Tablet, oral, AT BEDTIME PRN, Starting on Sun08/15/23 at 0329, Until Sun08/20/23 at 1525, Constipation, Routine senna (SENOKOT) tablet 2 Tablet 2 Tablet, oral, 2 TIMES DAILY PRN, Starting on Sun06/25/23 at 1336, Until Kaur 07/05/23 at 1544, Constipation, Routine Given 06/30/2023 20:20 EDT 2 Tablets sennosides (SENOKOT) syrup 17.6 mg 17.6 mg (10 mL), per ng tube, 2 TIMES DAILY PRN, Starting on Sun06/25/23 at 1336, Until Kaur 07/05/23 at 1544, Constipation, Routine Given 07/05/2023 8:14 EDT 17.6 mg Given 07/01/2023 20:35 EDT 17.6 mg Given 07/01/2023 15:15 EDT 17.6 mg sevelamer carbonate (RENVELA) powder for oral suspension 800 mg 800 mg, per ng tube, 3 TIMES DAILY WITH MEALS, 3 doses, First dose on Sun07/03/23 at 1330, Last dose on Sun07/04/23 at 0800, Routine Given 07/04/2023 8:29 EDT 800 mg Given 07/03/2023 17:34 EDT 800 mg Given 07/03/2023 15:47 EDT 800 mg sevelamer carbonate (RENVELA) powder for oral suspension 800 mg 800 mg, per ng tube, EVERY 8 HOURS, First dose on Sun07/04/23 at 1600, Until Discontinued, Routine Given 07/11/2023 23:59 EDT 800 mg Given 07/11/2023 16:07 EDT 800 mg Given 07/11/2023 10:57 EDT 800 mg sodium bicarbonate 1,300 mg 1,300 mg, per ng tube, 2 TIMES DAILY, 2 doses, First dose on Sun07/11/23 at 1545, Last dose on Sun07/11/23 at 2100, Routine Given 07/11/2023 21:41 EDT 1,300 mg Given 07/11/2023 15:59 EDT 1,300 mg sodium bicarbonate 1,300 mg 1,300 mg, per ng tube, 2 TIMES DAILY, 2 doses, First dose (after last reorder) on Sun07/12/23 at 1130, Last dose on Sun07/12/23 at 2100, Routine Given 07/12/2023 20:35 EDT 1,300 mg Given 07/12/2023 12:46 EDT 1,300 mg sodium chloride 0.9 % (flush) flush 10 mL 10 mL, intercatheter, WEEKLY, First dose on Sun07/02/23 at 1830, Until Discontinued, Routine Given 07/16/2023 18:44 EDT 1 0 mL Given 07/09/2023 18:30 EDT 10 mL Given 07/02/2023 21:59 EDT 10 mL sodium zirconium cyclosilicate (LOKELMA) 15 g 15 g, oral, NOW X1, 1 dose, On Sun06/25/23 at 1700, EVERETTE Given 06/25/2023 18:59 EDT 15 g spironolactone (ALDACTONE) tablet 12.5 mg 12.5 mg, oral, DAILY, First dose on Sun07/16/23 at 1130, Until Discontinued, Routine Given 07/20/2023 8:58 EDT 12 .5 mg Given 07/19/2023 11:12 EDT 12.5 mg Given 07/18/2023 9:47 EDT 12.5 mg sulfamethoxazole-trimethoprim (BACTRIM/CO-TRIMOXAZOLE DS) 800-160 mg per tablet 1 Tablet 1 Tablet, oral, EVERY 12 HOURS, 14 doses, First dose on Sun08/01/23 at 1330, Last dose on Sun08/07/23 at 2100, Type of Therapy: Empiric, Suspected Indication (Select all that apply): UTI, ID Consult: No, Routine Given 08/03/2023 9:03 EDT 1 Tablet Given 08/02/2023 21:12 EDT 1 Tablet Given 08/02/2023 8:38 EDT 1 Tablet TAMSulosin (FLOMAX) capsule 0.4 mg 0.4 mg, oral, DAILY, First dose on Sun08/17/23 at 1730, Until Discontinued, Routine Given 08/20/2023 8:04 EDT 0.4 mg Given 08/19/2023 8:06 EDT 0.4 mg Given 08/18/2023 9:45 EDT 0.4 mg technetium (Tc-99m) tetrofosmin injection (MYOVIEW) injection 18 millicurie 18 millicurie, radiopharm IV, NOW X1, 1 dose, On Sun07/19/23 at 1000, Routine Given 07/19/2023 9:20 EDT 19.8 millicuries technetium (Tc-99m) tetrofosmin injection (MYOVIEW) injection 6 millicurie 6 millicurie, radiopharm IV, NOW X1, 1 dose, On Sun07/19/23 at 0815, Routine Given 07/19/2023 7:25 EDT 6.5 mi llicuries thiamine (VITAMIN B-1) 100 mg in sodium chloride (NS) 0.9 % 50 mL IVPB 100 mg, intravenous, Administer over 15 Minutes, DAILY, First dose on Sun07/03/23 at 0945, Until Discontinued, Routine Given 07/04/2023 8:29 EDT 100 mg Given 07/03/2023 9:52 EDT 100 mg thiamine (VITAMIN B-1) 500 mg in sodium chloride (NS) 0.9 % 50 mL IVPB 500 mg, intravenous, Administer over 15 Minutes, 3 TIMES DAILY, 9 doses, First dose on Sun06/29/23 at 1045, Last dose on Sun07/01/23 at 2100, Routine Given 07/01/2023 20:35 EDT 500 mg Given 07/01/2023 13:16 EDT 500 mg Given 07/01/2023 9:45 EDT 500 mg thiamine (VITAMIN B1) tablet 100 mg 100 mg, per ng tube, DAILY, First dose on Kaur 07/05/23 at 0900, Until Discontinued, Routine Given 07/13/2023 15:56 EDT 10 0 mg Given 07/12/2023 16:44 EDT 100 mg Given 07/11/2023 16:07 EDT 100 mg thiamine (VITAMIN B1) tablet 100 mg 100 mg, oral, DAILY, First dose (after last modification) on 07/14/23 at 1600, Until Discontinued, Routine Given 08/18/2023 17:18 EDT 100 mg Given 08/17/2023 16:20 EDT 100 mg Given 08/16/2023 16:12 EDT 100 mg topiramate (TOPAMAX) tablet 50 mg 50 mg, oral, EVERY 12 HOURS, First dose on Sun07/30/23 at 1745, Until Discontinued, Routine Given 08/20/2023 8:04 EDT 50 mg Given 08/19/2023 20:13 EDT 50 mg Given 08/19/2023 8:06 EDT 50 mg torsemide (DEMADEX) tablet 20 mg 20 mg, oral, DAILY, First dose on Sun08/03/23 at 0900, Until Discontinued, Routine Given 08/03/2023 9:04 EDT 20 mg torsemide (DEMADEX) tablet 40 mg 40 mg, oral, DAILY, First dose on Sun08/08/23 at 0900, Until Discontinued, Routine Given 08/08/2023 8:06 EDT 40 mg torsemide (DEMADEX) tablet 40 mg 40 mg, oral, 2 TIMES DAILY (0800 & 1400), First dose (after last modification) on Sun08/10/23 at 1400, Until Discontinued, Routine Given 08/20/2023 8:06 EDT 40 mg Given 08/19/2023 14:08 EDT 40 mg Given 08/19/2023 8:06 EDT 40 mg torsemide (DEMADEX) tablet 80 mg 80 mg, oral, DAILY, First dose (after last modification) on Sun08/09/23 at 0900, Until Discontinued, Routine Given 08/10/2023 8:25 EDT 80 mg Given 08/09/2023 8:43 EDT 80 mg white petrolatum 42 % ointment topical, PRN, Starting on Sun07/10/23 at 2246, Until Sun07/24/23 at 1155, Dry Skin Given 07/24/2023 9:25 EDT Given 07/23/2023 9:52 EDT white petrolatum 42 % ointment topical, 3 TIMES DAILY, First dose (after last modification) on Sun07/24/23 at 1400, Until Discontinued Given 08/16/2023 20:38 EDT Given 08/16/2023 14:29 EDT Given 08/15/2023 20:31 EDT wound dressing (TRIAD) paste topical, DAILY, First dose on Sun07/12/23 at 0900, Until Discontinued Given 07/18/2023 9:48 EDT Given 07/17/2023 9:33 EDT Given 07/16/2023 12:15 EDT documented in this encounter Discontinued Medications Medication Sig Discontinue Reason Start Date End Da te empagliflozin (JARDIANCE) 10 mg tablet Take 1 Tablet by mouth daily. 07/16/2023 08/20/2023 ibuprofen (MOTRIN) 200 mg tablet Take 4 Tabs by mouth 3 times daily. 08/20/2023 beclomethasone (QVAR) 80 mcg/Actuation inhaler Inhale 2 Puffs as directed 2 times daily. 08/20/2023 lisinopril (PRINIVIL, ZESTRIL) 20 mg tablet Take 20 mg by mouth daily. 08/20/2023 CALCIUM CARBONATE, [id number], (TUMS ORAL) Take 1-5 Tabs by mouth as needed. 08/20/2023 tramadol (ULTRAM) 50 mg tablet Take 50 mg by mouth every 6 hours as needed for Pain. 08/20/2023 aspirin 81 mg EC tablet Take 1 Tablet by mouth daily. 05/30/2023 08/20/2023 celecoxib (CELEBREX) 100 mg capsule Take 1 Capsule by mouth daily. 04/06/2023 08/20/2023 metoprolol SUCCinate (TOPROL-XL) 25 mg tablet Take 1 Tablet by mouth daily. 04/20/2023 08/20/2023 spironolactone (ALDACTONE) 25 mg tablet Take 1 Tablet by mouth daily. 06/12/2023 08/20/2023 verapamil (CALAN-SR) 120 mg ER tablet Take 1 Tablet by mouth daily. 11/30/2022 08/20/2023 documented as of this encounter Historical Medications * This list may reflect changes made after this encounter. Medication Sig Dispensed Refills Start Date End Date topiramate (TOPAMAX) 50 mg tablet Take 1 Tablet by mouth 2 times daily. pantoprazole (PROTONIX) 40 mg tablet Take 1 Tablet by mouth daily. 04/03/2023 CEROVITE SENIOR 0.4 mg-300 mcg- 250 mcg tablet Take 1 Tablet by mouth daily. 04/04/2023 HYDROcodone-acetaminophe n (NORCO) 10-325 mg tablet Take 1 Tablet by mouth every 6 hours. 05/30/2023 cyclobenzaprine (FLEXERIL) 10 mg tablet Take 1 Tablet by mouth 3 times daily as needed for Muscle Spasms. 05/15/2023 citalopram (CELEXA) 20 mg tablet Take 1 Tablet by mouth daily. verapamil (CALAN-SR) 120 mg ER tablet Take 1 Tablet by mouth daily. 11/30/2022 08/20/2023 spironolactone (ALDACTONE) 25 mg tablet Take 1 Tablet by mouth daily. 06/12/2023 08/20/2023 metoprolol SUCCinate (TOPROL-XL) 25 mg tablet Take 1 Tablet by mouth daily. 04/20/2023 08/20/2023 celecoxib (CELEBREX) 100 mg capsule Take 1 Capsule by mouth daily. 04/06/2023 08/20/2023 aspirin 81 mg EC tablet Take 1 Tablet by mouth daily. 05/30/2023 08/20/2023 added in this encounter Active and Recently Administered Medications Times are shown in EDT. Scheduled Medication Order 08/18/2023 08/19/2023 08/20/2023 atorvastatin (LIPITOR) tablet 40 mg 40 mg, oral, DAILY, First dose on 07/21/23 at 0900, Until Discontinued, Routine 0945 (Given - Provider: Duncan Bond RN) 08 (Given - Provider: Darien Rivera RN) 08 (Given - Provider: Darien Rivera RN) blood thinner patient education booklet 1 Each 1 Each, other, Once (Without Time Specified), 1 dose, Starting on 08/11/23 at 1409, Until 08/20/23 at 1525, Routine citalopram (CELEXA) tablet 20 mg 20 mg, oral, DAILY, First dose (after last modification) on 07/15/23 at 0900, Until Discontinued, Routine 09 (Given - Provider: Duncan Bond RN) 08 (Given - Provider: Darien Rivera RN) 08 (Given - Provider: Darien Rivera RN) Dimethicone-Zinc Oxide 20-25 % spray,non-aerosol topical, 2 TIMES DAILY, First dose on Sun06/29/23 at 2100, Until Discontinued 1041 (Not Given - Provider: Duncan Bond RN - Reason: Patient/family refused)2006 (Not Given - Provider: Fredy Ramachandran RN - Reason: Patient/family refused) 0814 (Not Given - Provider: Darien Rivera RN - Reason: Patient/family refused)2247 (Not Given - Provider: Taty Sultana RN - Reason: Patient/family refused) 0838 (Not Given - Provider: Darien Rivera RN - Reason: Patient/family refused) enoxaparin (LOVENOX) injection 40 mg 40 mg, subcutaneous, DAILY, First dose (after last reorder) on 08/12/23 at 0900, Until Discontinued, Routine 944 (Given - Provider: Duncan Bond RN) 08 (Given - Provider: Darien Rivera RN) 08 (Given - Provider: Darien Rivera, ABEL) ferrous sulfate 324 mg (65 mg elemental) EC tablet 324 mg 324 mg, oral, EVERY 48 HOURS, First dose on Sun07/18/23 at 0900, Until Discontinued, Routine 08 (Given - Provider: Darien Rivera RN) fluconazole (DIFLUCAN) tablet 200 mg (COMPLETED) 200 mg, oral, DAILY WITH DINNER, 2 doses, First dose (after last reorder) on 08/18/23 at 1700, Last dose on 08/19/23 at 1700, Routine 1718 (Given - Provider: Duncan Bond RN) 1612 (Given - Provider: Darien Rivera RN) folic acid (FOLVITE) tablet 1 mg 1 mg, oral, DAILY, First dose (after last modification) on 07/14/23 at 1600, Until Discontinued, Routine 1718 (Given - Provider: Duncan Bond RN - Comment: pt sleeping) 161 (Given - Provider: Darien Rivera RN) gabapentin (NEURONTIN) capsule 300 mg 300 mg, oral, 3 TIMES DAILY, First dose (after last modification) on 08/06/23 at 1400, Until Discontinued, Routine 0945 (Given - Provider: Duncan Bond RN)1307 (Given - Provider: Duncan Bond RN)2003 (Given - Provider: Fredy Ramachandran RN) 0807 (Given - Provider: Darien Rivera RN)1408 (Given - Provider: Darien Rivera RN)2012 (Given - Provider: Taty Sultana RN) 0805 (Given - Provider: Darien Rivera RN)1400 (Canceled Entry - Provider: Batch Job User Admin - Comment: Automatically canceled at discontinue of medication order) HYDROcodone-acetaminop hen (NORCO) 10-325 mg tablet 1 Tablet 1 Tablet, oral, 4 TIMES DAILY, First dose on Sun08/15/23 at 1200, Until Discontinued, Routine 0945 (Given - Provider: Duncan Bond RN - Comment: pt sleeping)1306 (Given - Provider: Duncan Bond RN)1718 (Given - Provider: Duncan Bond RN)2003 (Given - Provider: Fredy Ramachandran RN) 0806 (Given - Provider: Darien Rivera RN)1105 (Given - Provider: Darien Rivera RN)1613 (Given - Provider: Darien Rivera RN)2012 (Given - Provider: Taty Sultana RN) 0805 (Given - Provider: Darien Rivera RN)1143 (Given - Provider: Darien Rivera RN) lidocaine 5 % (LIDODERM) patch 1 Patch 1 Patch, transdermal, Administer over 12 Hours, DAILY, First dose on Sun07/05/23 at 0900, Until Discontinued, Routine 0944 (Patch Applied - Provider: Duncan Bond RN)2145 (Patch Removed - Provider: Fredy Ramachandran RN) 0809 (Patch Applied - Provider: Darien Rivera RN)2247 (Patch Removed - Provider: Taty Sultana RN) 0807 (Patch Applied - Provider: Darien Rivera RN)1323 (Due: Patch Removed - Provider: Batch Job User Admin - Comment: Time automatically adjusted from order being discontinued) lidocaine 5 % (LIDODERM) patch 1 Patch 1 Patch, transdermal, Administer over 12 Hours, DAILY, First dose on Sun08/08/23 at 1030, Until Discontinued, Routine 0944 (Patch Applied - Provider: Duncan Bond RN)2145 (Patch Removed - Provider: Fredy Ramachandran RN) 0805 (Patch Applied - Provider: Darien Rivera RN)2247 (Patch Removed - Provider: Taty Sultana RN) 0806 (Patch Applied - Provider: Darien Rivera RN)1323 (Due: Patch Removed - Provider: Batch Job User Admin - Comment: Time automatically adjusted from order being discontinued) metoprolol SUCCinate (TOPROL-XL) tablet 50 mg 50 mg, oral, DAILY, First dose on Sun07/24/23 at 0900, Until Discontinued, Routine 1030 (Given - Provider: Duncan Bond RN) 0806 (Given - Provider: Darien Rivera RN) 0805 (Given - Provider: Darien Rivera RN) ovupvfcj-ipt-noyo fum-folic ac 7.5 mg iron-400 mcg tablet 1 Tablet 1 Tablet, oral, DAILY, First dose on Sun07/26/23 at 1045, Until Discontinued, Routine 0945 (Given - Provider: Duncan Bond RN) 0807 (Given - Provider: Darien Rivera RN) 0806 (Given - Provider: Darien Rivera RN) oxyCODONE (ROXICODONE) immediate release tablet 5 mg (COMPLETED) 5 mg, oral, NOW X1, 1 dose, On 08/18/23 at 0115, Routine 0059 (Given - Provider: Fredy Ramachandran RN) oxyCODONE (ROXICODONE) immediate release tablet 5 mg (COMPLETED) 5 mg, oral, NOW X1, 1 dose, On 08/19/23 at 0145, Routine 0146 (Given - Provider: Fredy Ramachandran RN) oxyCODONE (ROXICODONE) immediate release tablet 5 mg (COMPLETED) 5 mg, oral, NOW X1, 1 dose, On 08/20/23 at 0100, Routine 0040 (Given - Provid er: Taty Sultana RN) pantoprazole (PROTONIX) tablet 40 mg 40 mg, oral, DAILY, First dose on Sun07/17/23 at 0900, Until Discontinued, Routine 0945 (Given - Provider: Duncan Bond RN) 08 (Given - Provider: Darien Rivera RN) 08 (Given - Provider: Darien Rivera RN) petrolatum (AQUAPHOR NATURAL HEALING) 41 % ointment topical, DAILY, First dose on Kaur 07/19/23 at 1000, Until Discontinued 1041 (Not Given - Provider: Duncan Bond RN - Reason: Patient/family refused) 0949 (Given - Provider: Darien Rivera RN) 0901 (Not Given - Provider: Darien Rivera RN - Reason: Patient/family refused) ramelteon (ROZEREM) tablet 8 mg 8 mg, oral, AT BEDTIME, First dose (after last modification) on 07/14/23 at 2100, Until Discontinued, Routine 2003 (Given - Provider: Fredy Ramachandran RN) 2012 (Given - Provider: Taty Sultana, ABEL) TAMSulosin (FLOMAX) capsule 0.4 mg 0.4 mg, oral, DAILY, First dose on Sun08/17/23 at 1730, Until Discontinued, Routine 45 (Given - Provider: Duncan Bond RN) 08 (Given - Provider: Darien Rivera RN) 08 (Given - Provider: Darien Rivera RN) thiamine (VITAMIN B1) tablet 100 mg (CANCELED) 100 mg, oral, DAILY, First dose (after last modification) on Sun07/14/23 at 1600, Until Discontinued, Routine 1718 (Given - Provider: Duncan Bond RN - Comment: pt sleeping) topiramate (TOPAMAX) tablet 50 mg 50 mg, oral, EVERY 12 HOURS, First dose on Sun07/30/23 at 1745, Until Discontinued, Routine 0945 (Given - Provider: Duncan Bond RN)2011 (Given - Provider: Fredy Ramachandran RN) 0806 (Given - Provider: Darien Rivera RN)2012 (Given - Provider: Taty Sultana, ABEL) 0804 (Given - Provider: Darien Rivera RN) torsemide (DEMADEX) tablet 40 mg 40 mg, oral, 2 TIMES DAILY (0800 & 1400), First dose (after last modification) on Sun08/10/23 at 1400, Until Discontinued, Routine 0945 (Given - Provider: Duncan Bond RN - Comment: pt sleeping)1306 (Given - Provider: Duncan Bond RN) 0806 (Given - Provider: Darien Rivera RN)1408 (Given - Provider: Darien Rivera RN) 0806 (Given - Provider: Darien Rivera RN)1400 (Canceled Entry - Provider: Batch Job User Admin - Comment: Automatically canceled at discontinue of medication order) white petrolatum 42 % ointment topical, 3 TIMES DAILY, First dose (after last modification) on Sun07/24/23 at 1400, Until Discontinued 1041 (Not Given - Provider: Duncan Bond RN - Reason: Patient/family refused)1314 (Not Given - Provider: Duncan Bond RN - Reason: Patient/family refused)2006 (Not Given - Provider: Fredy Ramachandran RN - Reason: Patient/family refused) 0810 (Not Given - Provider: Darien Rivera RN - Reason: Patient/family refused)1442 (Not Given - Provider: Darien Rivera RN - Reason: Patient/family refused)2247 (Not Given - Provider: Taty Sultana RN - Reason: Patient/family refused) 0838 (Not Given - Provider: Darien Rivera RN - Reason: Patient/family refused)1400 (Canceled Entry - Provider: Batch Job User Admin - Comment: Automatically canceled at discontinue of medication order) PRN Medication Order 08/18/2023 08/19/2023 08/20/2023 acetaminophen (TYLENOL) tablet 325 mg 325 mg, oral, 4 TIMES DAILY PRN, Starting on Kaur 08/16/23 at 1425, Until 08/20/23 at 1525, Pain, Routine 0048 (Given - Provider: Fredy Ramachandran RN)1306 (Given - Provider: Duncan Bnod RN) 0134 (Given - Provider: Fredy Ramachandran RN)1106 (Given - Provider: Darien Rivera, ABEL)1833 (Given - Provider: Darien Rivera, ABEL)2229 (Given - Provider: aTty Sultana RN) diclofenac sodium gel 2 g 2 g, topical, 2 TIMES DAILY PRN, Starting on 07/23/23 at 0548, Until 08/20/23 at 1525, Pain, Routine 1030 (Given - Provider: Duncan Bond RN) 0817 (Given - Provider: Darien Rivera RN)1834 (Given - Provider: Darien Rivera RN) diphenhydrAMINE-zinc acetate 2-0.1 % cream topical, 3 TIMES DAILY PRN, Starting on 08/11/23 at 0547, Until 08/20/23 at 1525, Itching, Irritation lidocaine (PF) 10 mg/mL (1 %) injection 2 mg 2 mg, intradermal, PRN, 4 doses, Starting on 06/25/23 at 1335, Until Sun08/20/23 at 1525, peripheral intravenous catheter placement, Routine polyethylene glycol 3350 (MIRALAX) packet 17 g 17 g, oral, DAILY PRN, Starting on 08/15/23 at 0329, Until 08/20/23 at 1525, Constipation, Routine 0815 (Given - Provider: Darien Rivera RN) senna (SENOKOT) tablet 1 Tablet 1 Tablet, oral, AT BEDTIME PRN, Starting on 08/15/23 at 0329, Until 08/20/23 at 1525, Constipation, Routine documented in this encounter Orders Medications Ordered That Thierry ht Not Have Been Administered Count Last Ordered Date First Ordered Date gabapentin (NEURONTIN) capsule 100 mg 1 phenazopyridine (PYRIDIUM) tablet 200 mg 1 08/17/2023 Phenazopyridine 200 mg Tab STARTER PACK 1 0 08/17/2023 potassium chloride SA (KLOR- CON M20) tablet 40 mEq 6 08/15/2023 07/11/2023 senna (SENOKOT) tablet 1 Tablet 1 magnesium sulfate 2 g in water 50 mL 3 11/202308/02/2023 apixaban (ELIQUIS) tablet 2.5 mg 1 08/11/19 apixaban (ELIQUIS) tablet 5 mg 1 08/11/2023 blood thinner patient educat ion booklet 1 Each 1 08/11/2023 potassium chloride (KLOR-CON ) packet 40 mEq 4 08/11/2023 07/08/2023 potassium chloride (KLOR-CON ) packet 20 mEq 1 08/10/2023 furosemide (LASIX) injection 60 mg 1 2023 zinc oxide (DESITIN) 40 % paste 1 heparin 1,000 unit/mL inject ion 2,700 Units 1 08/04/2023 heparin 1,000 unit/mL inject ion 5,500 Units 2 08/04/2023 06/29/2023 gabapentin (NEURONTIN) capsule 300 mg 2 07/11/2023 metoprolol TARtrate (LOPRESS OR) tablet 12.5 mg 2 07/22/2023 07/11/2023 metoprolol SUCCinate (TOPROL -XL) tablet 25 mg 3 07/21/2023 07/10/2023 metoprolol SUCCinate (TOPROL -XL) tablet 50 mg 1 07/21/2023 metoprolol SUCCinate (TOPROL -XL) tablet 37.5 mg 1 07/19/2023 regadenoson (LEXISCAN) injec tion syringe 0.4 mg 1 07/19/2023 dextrose 5 % (D5W) infusion 4 07/14/2023 07/10/2023 lactulose (CHRONULAC) 20 gra m/30 mL solution 30 mL 3 07/14/2023 06/27/2023 potassium chloride in water infusion 20 mEq 4 07/11/2023 06/25/2023 ramelteon (ROZEREM) tablet 8 mg 1 potassium chloride SA (KLOR- CON M20) tablet 20 mEq 1 07/10/2023 Free Water (bolus dose) 120 mL 1 07/08/2023 heparin injection 5,000 Units 2 07/06/2023 07/01/2023 piperacillin-tazobactam 4.5 g in sodium chloride (NS MBP) 100 mL IVPB 1 07/06/2023 dextrose 50 % solution 3 07/03/202306/24 hydrocortisone sodium succin ate (PF) (SOLU-CORTEF) injection 50 mg 1 07/02/2023 sodium chloride 0.9 % (flush) flush 10 mL 1 07/02/2023 sodium chloride 0.9 % (flush) flush 20 mL 1 07/02/2023 alteplase (CATHFLO ACTIVASE) injection 2 mg 2 07/01/2023 06/26/2023 furosemide (LASIX) injection 200 mg 1 06/30 haloperidol lactate (HALDOL) injection 2 mg 1 06/30/2023 haloperidol lactate (HALDOL) injection 5 mg 1 06/29/2023 gadoterate meglumine solution 1-30 mL 1 lidocaine (XYLOCAINE) 2 % vi scous solution 5 mL 1 06/28/2023 polyethylene glycol 3350 (LA RALAX) packet 17 g 1 06/28/2023 fentaNYL citrate (PF) injection 25 mcg 1 acetaminophen (TYLENOL) tablet 650 mg 1 beclomethasone HFA (QVAR) 40 mcg/actuation inhaler 2 Puff 1 06/25/2023 DOBUTamine (DOBUTREX) 500 mg in D5W 250 mL infusion 2 06/25/2023 iohexoL (OMNIPAQUE 350) solution 100 mL 1 0 06/25/2023 ipratropium-albuteroL (COMBI VENT RESPIMAT) 20-100 mcg/actuation inhaler 1 Puff 1 06/25/2023 lidocaine (PF) 10 mg/mL (1 % ) injection 2 mg 1 06/25/2023 papain-alpha amylase-cellula se (CLOG ZAPPER) 2-5 mL 1 06/25/2023 Diet Count Last Ordered Date First Orde red Date DISCHARGE DIET 1 08/20/2023 Nursing Count Last Ordered Date First Orde red Date ACTIVITY INSTRUCTIONS 1 08/20/2023 BATHING INSTRUCTIONS 1 08/20/2023 DRIVING INSTRUCTIONS 1 08/20/2023 WOUND CARE INSTRUCTIONS 1 08/20/2023 MEASURE BLOOD PRESSURE 1 07/26/2023 VTE PHARMACOLOGIC PROPHYLAXI S CURRENTLY ORDERED OR ON ALTERNATIVE THER 1 07/25/2023 ALSTON CATHETER - DISCONTINUE 1 07/15/2023 NURSING COMMUNICATION 4 07/10/20232023 VTE MECHANICAL PROPHYLAXIS C URRENTLY ORDERED 1 07/01/2023 NURSING ACTIVITY INSTRUCTION 3 06/27/2023 06/25/2023 BED POSITION 1 06/25/2023 HEIGHT AND WEIGHT 1 06/25/2023 MAY USE FEEDING TUBE 2 06/25/2023 Consult Count Last Ordered Date First Orde red Date CONSULT PASTORAL CARE 1 07/25/2023 CONSULT NUTRITION 1 06/25/2023 Respiratory Care Count Last Ordered Date First Ordered Date NEBULIZER TX INTERMITTENT 1 07/06/2023 EXTUBATION 1 07/03/2023 SEPTIC TANK SERVICER Count Last Ordered Date First Orde red Date SEPTIC TANK SERVICER CLINICAL SWALLOW EVALUATION AND TREAT 1 07/05/2023 Wound Ostomy Count Last Ordered Date First Orde red Date WOUND EVALUATION AND TREAT 2 07/10/2023 0 06/28/2023 IV Count Last Ordered Date First Orde red Date IV REQUEST 10 08/06/2023 06/26/2023 INSERT PICC LINE 1 07/01/2023 CONTINUE CENTRAL CATHETER 3 06/29/2023 Dialysis Count Last Ordered Date First Orde red Date HEMODIALYSIS 4 07/06/2023 06/29/2023 CITRAPURE L3 1 06/27/2023 CONTINUOUS RENAL REPLACEMENT (CRRT) SET-UP 1 06/27/2023 IP ADD SODIUM PHOSPHATE 1 06/27/2023 IP CRRT HEPARIN 1 06/27/2023 Admission Count Last Ordered Date First Orde red Date ADMIT TO INPATIENT 1 06/25/2023 Transfer Count Last Ordered Date First Orde red Date CONSULT TRANSFER CENTER (TRA NSFER/CONSULT TO OTHER FACILITY) 1 08/02/2023 TRANSFER PATIENT 1 07/05/2023 Discharge Count Last Ordered Date First Orde red Date DISCHARGE PATIENT 1 08/20/2023 Legal Count Last Ordered Date First Orde red Date MISCELLANEOUS DISCHARGE INSTRUCTIONS 1 08/03 ADT Patient Update Count Last Ordered Date Firs t Ordered Date UPDATE PATIENT STATUS 1 08/08/2023 documented in this encounter Additional Health Concerns Infection Onset Date Last Indicated Resolved Time Rule-Out C. difficile 07/03/2023 07/03/20232023 23:07 EDT Rule-Out C. difficile 07/10/2023 07/10/20232023 17:16 EDT R/O COVID-19 08/05/2023 08/05/2023 08/05/2023 13:0 3 EDT documented as of this encounter Care Teams Plant Operations Manager Relationship Specialty Start Date End Date Davian Guzman MD [address] [place] [id number] PCP - General 06/25/23 documented as of this encounter
--- OUTSIDE RECORDS SUMMARY | 2023-11-30 15:23 | XMS_ITS | Encounter Summary ---
Author Organization [facility] Address [address] [place] [address] Care Team Providers Care Medical Office Supervisor Name Role Phone Sherri Guzman MD Primary Care Provider [phone] Encounter Details Date Type Department Care Team (Late st Contact Info) Description 06/25/2023 Lab Requisition [facility] - [facility] [address], [place] [id number] Outr Resulting Lab, Provider Social History Tobacco Use Types Packs/Day Years Used Date Smoking Tobacco: Never Assessed Sex and Gender Information Value Date Recorded Sex Assigned at Not on file Gender Identity Male 07/04/2023 11:28 EDT Sexual Orientation Not on file documented as of this encounter Plan of Treatment Not on file documented as of this encounter Procedures Procedure Name Priority Date/Time Associated Diagnosis Comments HIV 1/2 ANTIGEN AND ANTIBODY, 4TH GENERATION Routine 06/25/2023 9:09 EDT documented in this encounter Results * HIV 1/2 ANTIGEN AND ANTIBODY, 4TH GENERATION (06/25/2023 9:09 EDT) HIV 1 and 2 Antibody/p24 Antigen, 4th Generation Negative Negative 06/25/2023 19:44 EDT [facility] Comment:If acute HIV-1 infec tion is suspected in a high risk patient, submit plasma specimen for HIV-1 RNA quantitation test. Blood VENOUS BLOOD / Unknown 06/25/2023 9:09 EDT 06/25/2023 16:53 EDT Narrative [facility] - 06/25/2023 19:44 EDT Fourth Generation assay performed on the Siemens PICS Aud[employer] XPT. Provider Outr Resulting Lab IMMUNOLOGY A ND SEROLOGY ORDERABLES [facility] [address] [place] [address] documented in this encounter Visit Diagnoses Not on filedocumented in this encounter Additional Health Concerns Infection Onset Date Last Indicated Resolved Time Rule-Out C. difficile 07/03/2023 07/03/20232023 23:07 EDT Rule-Out C. difficile 07/10/2023 07/10/20232023 17:16 EDT R/O COVID-19 08/05/2023 08/05/2023 08/05/2023 13:0 3 EDT documented as of this encounter Care Teams Medical Office Supervisor Relationship Specialty Start Date End Date Sherri Guzman MD [address] [place] [phone] PCP - General 06/25/23 documented as of this encounter
--- OUTSIDE RECORDS SUMMARY | 2023-11-30 15:23 | XMS_ITS | Encounter Summary ---
Author Organization [facility] Address [address] [place] [address] Care Team Providers Care Magazine Grinder Loader Name Role Phone Unavailable Primary Care Provider Unavailabl e Encounter Details Date Type Department Care Team (Late st Contact Info) Description 10/01/2007 Before PRISM Converted Visit (Maple) [facility] - Maple conversion [address] [place] [address] [facility] [address] [place], [place] [id number] Social History Tobacco Use Types Packs/Day Years Used Date Smoking Tobacco: Never Assessed Sex and Gender Information Value Date Recorded Sex Assigned at Not on file Gender Identity Male 07/04/2023 11:28 EDT Sexual Orientation Not on file documented as of this encounter Procedure Notes * [facility] - 11/30/2008 1044 EDT DIVISION OF PAIN MANAGEMENT PROCEDURE REPORT SERVICE DATE: 10/01/2007 SEARCH ANALYST: Rena Jensen MD LICENSED PSYCHOLOGIST MANAGER: Sunny Light MD PROCEDURE Right-sided L5-S1 transforaminal epidural steroid injection. PREPROCEDURE DIAGNOSES Chronic low back pain, lumbar spondylosis with facet arthropathy, mild spinal stenosis with right-sided radiculopathy. POSTPROCEDURE DIAGNOSES Chronic low back pain, lumbar spondylosis with facet arthropathy, mild spinal stenosis with right-sided radiculopathy. INTERVAL HISTORY Mr. Nolan is a 52-year-old gentleman who has a history of chronic low back pain. His back pain started approximately four years ago when he fell off a deck. He has been incarcerated for the last six months. Within this time he has experienced shooting pain down his right leg more so than his leftleg. The patient was here in the clinic on August 25, 2007, for initial history and physical. At thattime it was decided to proceed with a right-sided L5-S1 transforaminal epidural steroid injection on return. REVIEW OF SYSTEMS No nausea, vomiting, no chills, no fevers, no headache. PHYSICAL EXAMINATION Alert and oriented times three. Neurologically intact. ASSESSMENT Chronic low back pain with lumbar spondylosis, right lumbar neuralgia with L5-S1 distribution and facet arthropathy. PLAN Proceed with a right-sided L5-S1 transforaminal epidural steroid injection. Follow up will be with his primary care doctor. Will see the patient as needed only. PROCEDURE NOTE Right-sided L5-S1 transforaminal selective nerve root injection. After obtaining informed consent, the patient was placed in a prone position. The area over the lumbar back was prepared with chlorhexidine solution and draped in sterile fashion. The skin and subcutaneous tissues were anesthetized with a total of 2 mL of 2% lidocaine. A single 22-gauge, 5-inch needle was advanced under fluoroscopicguidance and confirmed to be in position in the right L5-S1 foramen on lateral view. It was confirmed with 1 mL of radiopaque dye which showed good outline of the exiting nerve root. A total of 80 mgof Depo-Medrol and 1 mL of 2% lidocainewas injected. There was no appearance of blood, CSF or paresthesias at any time during the procedure. The patient tolerated the procedure well. FOLLOWUP INSTRUCTIONS Patient is to follow up with his primary care doctor. We will see the patient on an as-needed basis. I was present during the entire procedure. Signed by Rena Jensen MD 10/04/2007 15:10 [facility] MD Rena Jensen MD D: - Sunny Light MD - [facility] Job ID: [id number] Doc ID: [id number] cc: Nisa Lechuga MD documented in this encounter Plan of Treatment Not on file documented as of this encounter Visit Diagnoses Not on filedocumented in this encounter
--- OUTSIDE RECORDS SUMMARY | 2023-11-30 15:23 | XMS_ITS | Encounter Summary ---
Author Organization [facility] Address [address] [place] [address] Care Team Providers Care Sephora Product Consultant Name Role Phone Sherri Guzman MD Primary Care Provider [phone] Reason for Visit * Auth/Cert (Routine) Specialty Diagnoses / Procedures Referred By Frank t Referred To Contact Diagnoses Shock (HCC-CMS) Multi Organ Failure Referral ID Status Reason Start Date Expiration Date Visits Re quested Visits Authorized [id number] 1 1 Encounter Details Date Type Department Care Team (Late st Contact Info) Description 06/26/2023 10:40 EDT Ancillary Procedure [facility] Vascular Surgery - [address] [id number] Charanjit Taylor MD [address] [facility], [address] [place] [phone] Social History Tobacco Use Types Packs/Day Years Used Date Smoking Tobacco: Never Assessed Sex and Gender Information Value Date Recorded Sex Assigned at Not on file Gender Identity Male 07/04/2023 11:28 EDT Sexual Orientation Not on file documented as of this encounter Plan of Treatment Not on file documented as of this encounter Procedures Procedure Name Priority Date/Time Associated Diagnosis Comments US LOWER VENOUS DUPLEX (DVT) BILATERAL Routine 06/26/2023 11:40 EDT documented in this encounter Results * US LOWER VENOUS DUPLEX (DVT) BILATERAL (06/26/2023 11:40 [...] HPI and Indications Lower extremity swelling. Alec Darrius [facility] documented in this encounter Visit Diagnoses Not on filedocumented in this encounter Care Teams Sephora Product Consultant Relationship Specialty Start Date End Date Sherri Guzman MD [address] [place] [id number] PCP - General 06/25/23 documented as of this encounter
--- OUTSIDE RECORDS SUMMARY | 2023-11-30 15:23 | XMS_ITS | Encounter Summary ---
Author Organization [facility] Address [address] [place] [address] Care Team Providers Care Pit Recorder Name Role Phone Nisa Lechuga MD Primary Care Provider Unavail able Encounter Details Date Type Department Care Team (Late st Contact Info) Description 04/14/2009 Abstract [facility] - [place] [address] [place] [address] Ruben Flores PA-C Formerly [facility] [employer] [facility] [place] [phone] HTN (hypertension); Back pain; Asthma; Alcohol abuse; Smoking; Obesity; Neck pain; Chronic pain; Hepatitis C antibody test positive; Left shoulder pain Social History Tobacco Use Types Packs/Day [...] antibody test positive Other and unspecified nonspecific immunological findings Left shoulder pain Pain in joint, shoulder region documented in this encounter Historical Medications * This list may reflect changes made after this encounter. Medication Sig Dispensed Refills Start Date End Date gabapentin (NEURONTIN) 300 mg tablet Take 3 Tabs by mouth 3 times daily. IPRATROPIUM/ALBUTEROL SULFATE (COMBIVENT INHL) Inhale 2 Puffs as directed every 4 hours as needed. tramadol (ULTRAM) 50 mg tablet Take 50 mg by mouth every 6 hours as needed for Pain. 08/20/2023 CALCIUM CARBONATE, [id number], (TUMS ORAL) Take 1-5 Tabs by mouth as needed. 08/20/2023 lisinopril (PRINIVIL, ZESTRIL) 20 mg tablet Take 20 mg by mouth daily. 08/20/2023 beclomethasone (QVAR) 80 mcg/Actuation inhaler Inhale 2 Puffs as directed 2 times daily. 08/20/2023 ibuprofen (MOTRIN) 200 mg tablet Take 4 Tabs by mouth 3 times daily. 08/20/2023 added in this encounter Care Teams Pit Recorder Relationship Specialty Start Date End Date Nisa Lechuga MD [address] [place] [phone] PCP - General 01/26/09 09/23/09 documented as of this encounter
--- OUTSIDE RECORDS SUMMARY | 2023-11-30 15:23 | XMS_ITS | Encounter Summary ---
Author Organization [facility] Address [address] [place] [address] Care Team Providers Care Data Manager Name Role Phone Unavailable Primary Care Provider Unavailabl e Encounter Details Date Type Department Care Team (Late st Contact Info) Description 09/24/2007 Before PRISM Converted Visit (Maple) [facility] - Maple conversion [address] [place] [address] Rena Jensen MD [address] [place] [address] Social History Tobacco Use Types Packs/Day Years Used Date Smoking Tobacco: Never Assessed Sex and Gender Information Value Date Recorded Sex Assigned at Not on file Gender Identity Male 07/04/2023 11:28 EDT Sexual Orientation Not on file documented as of this encounter Consult Notes * [place], [employer] - 11/30/2008 1346 EDT DIVISION OF PAIN [...] four hours since he fell off a deckand pulled several muscles and developed a disk herniation in his back. At that time, he received aseries of exercises to perform from physical therapy. He received three epidurals and experienced pretty good pain relief for three to four months and didextremely well. In the last six months, however, he suddenly began to develop a burning pain in his right leg. He describes the pain as starting in his right posterior hip and buttock, radiating along his posterior thigh and into the lateral calf. He is primarily irritated by a severe burning sensation in [...] occasional pain in his left buttock, but itis just in the buttock location and it [...] sleep and he feels his right leg painmight have worsened a little since he has gone off the Elavil. He also takes Vicodin one in the morning and two at night, ibuprofen 800 mg at noon, Flexeril 10 mg once to twice a day, and feels that all of these are somewhat helpful, but that his pain is still severe and he would like it to go away. He denies weakness or changes to bowel or bladder function. He has been having difficulty urinating, but this has improved since he has been off his Elavil. He denies any other changes to bowel or bladder function or weakness. He does describe waking up [...] this recently. 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 He does describe a problem [...] during the visit.He is able to stand and walk with a mildly stiff gait, but no visible abnormalities. He can stand on toes and heels and describes increased discomfort standing on heels, but is able to do so without difficulty. He can forward flex completely and touch thefloor, with a reproduction [...] lumbosacral junction particularly reproduces his back pain morethan spinal palpation. He has mild trigger points [...] to clinic for a right L5-S1 transforaminal epiduralsteroid injection for assistance with his right leg pain. There is a possibility this would not be helpful for his back pain, however, and this was discussed with him. For patientmid low back pain, it appears to be facet-mediated. If it worsens, intraarticular [...] pain, an epidural will be scheduled at [facility]. Another medication that is helpful for this includes Neurontin, which he is currently taking, and some antidepressants.Currently, he seems to be doing well with his current medications in this regard. 3. The chronic nature of his pain was discussed with patient at length. Options were discussed. He does have an additional component of myofascial pain and physical therapy would certainly be helpfulfor this as well. 4. Should his back [...] Jensen MD - Rena Jensen MD - [facility] Job ID: [id number] Doc ID: [id number] cc: Nisa Lechuga MD documented in this encounter Plan of Treatment Not on file documented as of this encounter Visit Diagnoses Not on filedocumented in this encounter
--- OUTSIDE RECORDS SUMMARY | 2023-11-30 15:23 | XMS_ITS | Encounter Summary ---
Author Organization [facility] Address [address] [place] [address] Care Team Providers Care Plant Taxonomist Name Role Phone Sherri Guzman MD Primary Care Provider [phone] Reason for Visit * Auth/Cert (Routine) Specialty Diagnoses / Procedures Referred By Frank t Referred To Contact Diagnoses Shock (HCC-CMS) Multi Organ Failure Referral ID Status Reason Start Date Expiration Date Visits Re quested Visits Authorized [id number] 1 1 Encounter Details Date Type Department Care Team (Late st Contact Info) Description 06/29/2023 10:00 EDT Ancillary Procedure [facility] Vascular Surgery - [address] [id number] Charanjit Taylor MD [address] [facility], [address] [place] [phone] Social History Tobacco Use Types Packs/Day Years Used Date Smoking Tobacco: Unknown Sex and Gender Information Value Date Recorded Sex Assigned at Not on file Gender Identity Male 07/04/2023 11:28 EDT Sexual Orientation Not on file documented as of this encounter Plan of Treatment Not on file documented as of this encounter Procedures Procedure Name Priority Date/Time Associated Diagnosis Comments US UPPER VENOUS DUPLEX (DVT) BILATERAL Routine 06/29/2023 9:11 EDT documented in this encounter Results * US UPPER VENOUS DUPLEX (DVT) BILATERAL [...] no intraluminal echoes present. Alec Rizo MD IMG VASCULAR ARNULFO DEL ANGEL documented in this encounter Visit Diagnoses Not on filedocumented in this encounter Care Teams Plant Taxonomist Relationship Specialty Start Date End Date Sherri Guzman MD [address] [place] [phone] PCP - General 06/25/23 documented as of this encounter
--- OUTSIDE RECORDS SUMMARY | 2023-11-30 15:23 | XMS_ITS | Encounter Summary ---
Author Organization [facility] Address [address] [place] [address] Care Team Providers Care Bus Driver/Monitor Name Role Phone Sehrri Guzman MD Primary Care Provider [phone] Encounter Details Date Type Department Care Team (Latest Contact Info) Description 06/25/2023 Travel Social History Tobacco Use Types Packs/Day Years Used Date Smoking Tobacco: Never Assessed Sex and Gender Information Value Date Recorded Sex Assigned at Not on file Gender Identity Male 07/04/2023 11:28 EDT Sexual Orientation Not on file documented as of this encounter Plan of Treatment Not on file documented as of this encounter Visit Diagnoses Not on filedocumented in this encounter Care Teams Bus Driver/Monitor Relationship Specialty Start Date End Date Sherri Guzman MD [address] [place] [id number] PCP - General 06/25/23 documented as of this encounter
--- OUTSIDE RECORDS SUMMARY | 2023-11-30 15:23 | XMS_ITS | Encounter Summary ---
Author Organization [facility] Address [address] [place] [address] Care Team Providers Care Premises Technician Name Role Phone Unknown, Provider Primary Care Provider Sherri Guzman MD Primary Care Provider [phone] Encounter Details Date Type Department Care Team (Late st Contact Info) Description 09/23/2019 Lab Requisition [facility] - [facility] [address] [place] [address] Outr Resulting Lab, Provider Social History Tobacco [...] Procedure Name Priority Date/Time Associated Diagnosis Comments DO NOT ORDER STANDALONE - BROAD COVID TEST Today 09/23/2019 8:56 EDT COVID-19 TESTING Routine 09/23/2019 8:56 EDT documented in this encounter Results * DO NOT ORDER STANDALONE - BROAD COVID TEST (09/23/2019 8:56 EDT) COVID-19 rt-PCR Result NEGATIVE Negative 09/25/2019 1:09 EDT [facility] Comment: 2019-novel Coronavirus (2019-nCoV) not detected by the qRT-PCR assay. Consider testing for other respiratory viruses or re-collecting for 2019-nCoV testing. Note: Optimum timing for peak viral levels during infections caused by 2019-nCoV have not been determined. Collection of multiple specimens from the same patient may be necessary to detect the virus. Limitations Positive results are indicative of active infection with SARS-CoV-2 but do not rule out bacterial infection or co-infection with other viruses. The agent detected may not be the definite cause of disease. In addition, detection of viral RNA may not indicate the presence of infectious virus or that SARS-CoV-2 is the causative agent for clinical symptoms. Negative results do not preclude SARS-CoV-2 infection and should not be used as the sole basis for patient management decisions. Negative results must be combined with clinical observations, patient history, and epidemiological information. False negative results may also occur if amplification inhibitors are present in the specimen or if inadequate numbers of organisms are present in the specimen. Optimum specimen types and timing for peak viral levels during infections caused by SARS-CoV-2 have not been fully determined. Collection of multiple specimens (types and time points) from the same patient may be necessary to detect the virus. The test was validated for use with upper respiratory specimens obtained via nasopharyngeal or oropharyngeal swabs in VTM, UTM, M4, M5, M6, saline, and MTM media. The performance of this test has not been established for other specimens. Specimens collected using other FDA recommended Specimen Collection Materials listed in the FDA COVID-19 Diagnostic [employer] communication (May 29, 2019) are processed with the caveat that they were not [...] in accordance with CLIA regulations, [employer] (CAP) guidelines (May 22, 2019), and FDA guidance (May 03, 2019). This test is only for use under the Food and Drug Administration's Emergency Use Authorization. Swab ENTIRE NASOPHARYNX / Unknown 09/23/2019 8:56 EDT 09/23/2019 15:34 EDT Provider Outr Resulting Lab MICROBIOLOGY - GENERAL ORDERABLES [facility] [place] * COVID-19 TESTING (09/23/2019 8:56 EDT) COVID-19 rt-PCR Result NEGATIVE Negative 09/25/2019 2:48 EDT [facility] Comment: 2019-novel Coronavirus (2019-nCoV) not detected by the qRT-PCR assay. Consider testing for other respiratory viruses or re-collecting for 2019-nCoV testing. Note: Optimum timing for peak viral levels during infections caused by 2019-nCoV have not been determined. Collection of multiple specimens from the same patient may be necessary to detect the virus. Limitations Positive results are indicative of active infection with SARS-CoV-2 but do not rule out bacterial infection or co-infection with other viruses. The agent detected may not be the definite cause of disease. In addition, detection of viral RNA may not indicate the presence of infectious virus or that SARS-CoV-2 is the causative agent for clinical symptoms. Negative results do not preclude SARS-CoV-2 infection and should not be used as the sole basis for patient management decisions. Negative results must be combined with clinical observations, patient history, and epidemiological information. False negative results may also occur if amplification inhibitors are present in the specimen or if inadequate numbers of organisms are present in the specimen. Optimum specimen types and timing for peak viral levels during infections caused by SARS-CoV-2 have not been fully determined. Collection of multiple specimens (types and time points) from the same patient may be necessary to detect the virus. The test was validated for use with upper respiratory specimens obtained via nasopharyngeal or oropharyngeal swabs in VTM, UTM, M4, M5, M6, saline, and MTM media. The performance of this test has not been established for other specimens. Specimens collected using other FDA recommended Specimen Collection Materials listed in the FDA COVID-19 [employer] communication (May 29, 2019) are processed with the caveat that they were not [...] in accordance with CLIA regulations, [employer] (CAP) guidelines (May 22, 2019), and FDA guidance (May 03, 2019). This test is only for use under the Food and Drug Administration's Emergency Use Authorization. Performing Lab [facility] 09/25/2019 2:48 EDT [facility] Swab 09/23/2019 8:56 EDT 09/23/2019 15:34 EDT Provider Outr Resulting Lab MICROBIOLOGY - GENERAL ORDERABLES [facility] [address] [place] [id number] [place] [address] LABORATORY [place] documented in this encounter Visit Diagnoses Not on filedocumented in this encounter Additional Health Concerns Infection Onset Date Last Indicated Resolved Time Rule-Out C. difficile 07/03/2023 07/03/20232023 23:07 EDT Rule-Out C. difficile 07/10/2023 07/10/20232023 17:16 EDT R/O COVID-19 08/05/2023 08/05/2023 08/05/2023 13:0 3 EDT documented as of this encounter Care Teams Premises Technician Relationship Specialty Start Date End Date Unknown, Provider, PCP - General 09/24/09 06/24/23 Sherri Guzman MD [address] [place] [address] PCP - General 06/25/23 documented as of this encounter
--- OUTSIDE RECORDS SUMMARY | 2023-11-30 15:23 | XMS_ITS | Encounter Summary ---
Author Organization [facility] Address [address] [place] [address] Care Team Providers Care Agricultural Technician Name Role Phone Unavailable Primary Care Provider Unavailabl e Encounter Details Date Type Department Care Team (Late st Contact Info) Description 10/01/2007 14:32 EDT Hospital Encounter [facility] - [facility] [address] [place] [address] Rena Jensen MD [address] [place] [address] Discharge Disposition: Auto Discharge Social History Tobacco Use Types Packs/Day Years [...]
--- OUTSIDE RECORDS SUMMARY | 2023-11-30 15:23 | XMS_ITS | Encounter Summary ---
Author Organization [facility] Address [address] [place] [address] Care Team Providers Care Credit Control Assistant Name Role Phone Nisa Lechuga MD Primary Care Provider Unavail able Encounter Details Date Type Department Care Team (Late st Contact Info) Description 09/22/2009 Results Only [facility] - [facility] [place] [address], [place] [id number] Chacorta Lundberg MD [address], [place] [id number] Social History Tobacco Use Types Packs/Day Years Used Date Smoking Tobacco: Never Assessed Sex and Gender Information Value Date Recorded Sex Assigned at Not on file Gender Identity Male 07/04/2023 11:28 EDT Sexual Orientation Not on file documented as of this encounter Plan of Treatment Not on file documented as of this encounter Procedures Procedure Name Priority Date/Time Associated Diagnosis Comments SURGICAL PATHOLOGY Routine 09/22/2009 0:00 EDT documented in this encounter Results * SURGICAL PATHOLOGY (09/22/2009 0:00 EDT) Pathology Report: SURGICAL PATHOLOGY REPORT ? Reports generated via electronic interface contain original data; ? however they are lacking the format of the original report. ? Caution should be taken when reading/interpreti ng unformatted reports. ? Name: ? PILOTTE, DERRICK ? Accession #: ? [id number] ? : ? 1955 (Age: 54) ??M ? Collect Date: ? 09/22/2009 ? Location: ? [facility] ? Receive Date: ? 09/22/2009 ? Provider: CHACORTA LUNDBERG MD ? Copy to: NIYA ZIOBROWSKI MD ? Final Pathologic Diagnosis: ? A. ?Skin of neck, left, shave biopsy: ? 1. ?Seborrheic keratosis. ? B. ?Colon, cecum, polyps, biopsy: ? 1. ?Tubular adenoma. ? 2. ? Heavily cauterized colonic mucosa. ? C. ?Colon, transverse, polyp, biopsy: ? 1. ?Polypoid colonic mucosa with no specific pathologic features. ? D. ?Colon, splenic flexure, polyps, biopsy: ? 1. ?Fragments of tubular adenoma(s). ? E. ?Colon, sigmoid, polyp, biopsy: ? 1. ?Tubular adenoma. ? F. ?Rectum, polyp, biopsy: ? 1. ?Fragments of tubular adenoma. ? Comment: ? Deeper levels have been examined on specimens (B) and (C). ??(Dr. ? Jacob)/ljn ? Document reviewed and electronically signed by: ? BENNY PIERRE MD ? Report ??Date: 09/27/2009 18:20 ? By the signature above, the attending physician certifies that he/she has ? personally conducted a gross and/or microscopic examination of the described ? specimens and rendered or confirmed the above diagnosis. ? Specimen(s) Received: ? A. ?Seborrheic keratosis ??left neck (#1) ? B. ? Cecal polyps x3 (#2) ? C. ? Transverse colon polyp (#3) ? D. ? Splenic flexure polyps x2 (#4) ? E. ? Sigmoid polyp (#5) ? F. ? Rectal polyp (#6) ? Clinical History: ? A. Seborrheic keratosis (h/o razor trauma); B. ??Rectal bleeding & ? constipation - colonoscopy ? Gross Description: ? Received in formalin labelled Pilotte, Derrick and seborrheic keratosis left neck is an apparent shave biopsy of a 1.0 x 1.0 x 0.4 cm larkin-pink, ? granular and scaly nodule. The base is inked black, the specimen is quadrisected and entirely submitted in (A). ? Received in Patricia's fixative labelled Derrick Nolan and cecal polyp ?? x3 are three pink-trejo irregular soft tissues ranging from 0.2 x 0.1 x 0.1 cm to 0.2 x 0.2 x 0.2 cm. ??Submitted in toto in (B). ? Received in Patricia's fixative labelled Derrick Nolan and ? transverse ?? colon polyp is a single 0.3 x 0.2 x 0.2 cm pink-trejo irregular soft tissue. ? Submitted in toto in (C). ? Received in Patricia's fixative labelled Derrick Nolan and splenic ? flexure polyp are three pink-trejo irregular soft tissues ranging from 0.2 x 0.2 x 0.1 cm to 0.3 x 0.3 x 0.3 cm. ??Submitted in toto in (D). ? Received in [facility]'s fixative labelled Pilotte, Derrick and sigmoid polyp is a 0.7 x 0.6 x 0.4 cm pink-trejo polypoid soft tissue. ??The resection margin is inked blue, the specimen is bisected and entirely submitted in (E). ? Received in [facility]'s fixative labelled Pilotte, Derrick and rectal polyp is a 0.5 x 0.4 x 0.4 cm pink-trejo polypoid tissue as well as 0.3 x 0.2 x 0.2 cm ?? pink-trejo irregular tissue fragment. ??The resection margin of the polypoid tissue is inked blue. ??This tissue is bisected and entirely submitted in (F1) and the ?? separate fragment is submitted intact in (F2). ??(Noelle Matos)/lainey ? End of Report ? [facility] 09/22/2009 09/22/2009 9:0 6 EDT Chacorta Lundberg MD PATHOLOGY ORDERABLES [facility] [address] [place] [address] documented in this encounter Visit Diagnoses Not on filedocumented in this encounter Care Teams Credit Control Assistant Relationship Specialty Start Date End Date Nisa Lechuga MD [address] [place] [phone] PCP - General 01/26/09 09/23/09 documented as of this encounter
--- OUTSIDE RECORDS SUMMARY | 2023-11-30 15:23 | XMS_ITS | Encounter Summary ---
Author Organization [facility] Address [address] [place] [address] Care Team Providers Care Glue Drier Operator Name Role Phone Unavailable Primary Care Provider Unavailabl e Encounter Details Date Type Department Care Team (Late st Contact Info) Description 09/24/2007 14:27 EDT Hospital Encounter [facility] - [facility] [address] [place] [address] Rena Jensen MD [address] [place] [address] Discharge Disposition: Auto Discharge Social [...]
[2023-11-30 16:17] LABS: HCT 44.9 % (40.0-50.0); HGB 15.3 g/dL (13.5-17.5); MCH 32.9 pg (27.0-33.0); MCHC 34.1 % (32.0-36.0); MCV 97 fL (80-95); Platelet Count 262 10^3/uL (130-400); RBC 4.65 10^6/uL (4.36-5.78); RDW 15.2 % (11.8-14.1); RDW-SD 54.7 fL; WBC 9.26 10^3/uL (4.4-10.8)
[2023-11-30 16:37] LABS: Anion Gap 5.9 mmol/L (3-11); BUN 19 mg/dL (7-18); CO2 27.1 mmol/L (21.0-32.0); CREATININE 1.4 mg/dL (0.70-1.30); Chloride 103 mmol/L (98-107); Estimated GFR 54.75 (mL/min/1.73m2); Glucose 79 mg/dL (74-106); Sodium 136 mmol/L (136-145); TSH (W/Ref FT4) 6.31 uIU/mL (0.36-3.74)
[2023-11-30 16:56] LABS: FREE T4 0.86 ng/dL (0.76-1.46)
[2023-12-03 17:58] LABS: T3,Free 4.9 pg/mL (2.8-5.3)
== END 2023-11-30 15:13 | disposition home or self-care (01) ==
LOC: NCHCN 15:12
PROVIDERS: PCP Family Medicine; Visit Provider Family Medicine
DX: F32.9 Major depressive disorder, single episode, unspecified (principal)
CPT/HCPCS: 80048; 85027; 84439; 84443; 84481

== ENCOUNTER 2023-12-27 02:02 | Outpatient (CLI) | payer MEDICARE, MEDICAID, SELFPAY ==
--- NOTE | 2023-12-27 | DI.CTLCSR_ITS ---
Exam(s) CT CHEST LUNG CANCER SCREEN EXAM: CT CHEST LUNG CANCER SCREEN CLINICAL HISTORY: Nicotine dependence caused by cigarettes, F17.210 TECHNIQUE: Imaging Protocol: Axial computed tomography images with coronal and sagittal reformatted images were created and reviewed. Computer aided detection (CAD) was utilized. COMPARISON: CT CT CHEST PE CTA from 02/10/2021 FINDINGS: The examination is limited due to patient motion artifact. Tracheobronchial tree: Patent where visualized. No bronchiectasis. Pulmonary parenchyma: No consolidation or dominant measurable mass. There is mild pulmonary fibrosis present. Calcified granuloma are present. Lung Nodules: There is a stable 4 mm nodule in the left lower lobe (series 2, image 71). There is a stable 5 mm nodule in the posterior aspect of the right lower lobe (series 2, image 72). There is a stable 3 mm nodule in the right upper lobe (series 2, image 50). There is a stable 5 mm ground-glass nodule in the right upper lobe (series 2, image 16). No new pulmonary nodules are present. Mediastinum and Jodi: No dominant adenopathy or fluid collection. The esophagus is unremarkable.Calci fied lymph nodes are seen in the mediastinum consistent with prior granulomatous disease. Thyroid gland: Unremarkable. Lymph nodes: Unremarkable. Pleura: No effusion or pneumothorax. Heart: Cardiomegaly. Coronary artery calcifications are present. No pericardial effusion. Aorta: The ascending thoracic aorta measures 4.4 x 4.4 cm.Atherosclerotic calcification is present. Upper abdomen: Unremarkable. Soft Tissues: Unremarkable. Bones: Within normal limits. IMPRESSION: Stable pulmonary nodules. No new pulmonary nodules. Lung RADS Cat 2 - Benign Appearance / Behavior: Nodules with a very low likelihood of becoming a clin ically active cancer due to size or lack of growth Lung-RADS 1.0 CATEGORIES: Category 0 - Prior chest CT exam(s) being located for comparison. Category 1 - Annual screening in 12 months. No nodules or definitely benign nodules. Category 2 - Annual screening in 12 months. Benign appearance. Nodules with low likelihood of becomin g active cancer. Category 3 - 6-month follow-up. Probably benign. Short-term follow-up suggested. Nodules with low lik elihood of becoming active cancer. Category 4A - 3-month follow-up and CT/PET if >8 mm in size. Suspicious finding. Findings which requi re additional testing. Category 4B - Findings which require additional testing and tissue sampling. Suspicious finding. Category 4X - Category 3 or 4 nodules with additional features or imaging findings that increases the suspicion of malignancy. Modifier S- Potentially clinically significant finding. (Non lung cancer) RADIATION DOSE DELIVERED: 29.51mGy.cm Total DLP 29.51mGy.cmTotal DLP DATA REPOSITORY: All CT scans at this facility are submitted to the National Radiology Data Registry (NRDR) Dose Index Registry (DIR) with the [employer] (ACR). RADIATION OPTIMIZATION: All CT scans at this facility use at least one of these dose optimization te chniques: automated exposure control; mA and/or kV adjustment per patient size (includes targeted exa ms where dose is matched to clinical indication); or iterative reconstruction.
== END 2023-12-27 02:22 ==
LOC: DI 02:03
PROVIDERS: PCP Family Medicine; Visit Provider Family Medicine
DX: F17.210 Nicotine dependence, cigarettes, uncomplicated (principal); Z12.2 Encounter for screening for malignant neoplasm of respiratory organs; R91.1 Solitary pulmonary nodule
CPT/HCPCS: 71271

== ENCOUNTER 2024-06-14 14:32 | Emergency (ER) | payer MEDICARE, MEDICAID, SELFPAY ==
[2024-06-14] VITALS (15 sets, daily range): BP systolic 90–163; BP diastolic 65–122; PULSE 37–188; RESP 12–20; TEMP 36.2–36.5; O2SAT 69–95
--- NOTE | 2024-06-14 14:30 | DI.CT_ITS ---
Exam(s) CT HEAD CERVICAL SPINE WO EXAM: CT HEAD CERVICAL SPINE WO CLINICAL HISTORY: trauma. TECHNIQUE: Imaging Protocol: Axial computed tomography images with coronal and sagittal reformatted images were created and reviewed COMPARISON: No exams were available for comparison FINDINGS: Head CT Ventricles and Extra axial spaces: Normal in size and morphology for the patient's age. No subdural or epidural collection. Hemorrhage: There is a linear area of increased attenuation along the cortex in the posterior right f rontal lobe suspicious for cortical hemorrhagic contusion. Cerebral parenchyma: No evidence of mass or acute infarct. Midline shift: None. Brainstem/Cerebellum: Normal. Calvarium: Normal. Visualized Paranasal sinuses/Mastoids: Clear. Soft tissues: Unremarkable. Cervical Spine CT BONES: Vertebral body heights are maintained. Degenerative straightening of the normal cervical lordo sis. There is no evidence of acute fracture. There are extensive degenerative disc changes with prominent endplate osteophytes projecting anterior ly as well as posteriorly. Some osteophytes are bridging. And facet degenerative changes are seen . SOFT TISSUES: No paraspinal hematoma. The airway appears intact. No pneumothorax is seen at the lung apices. IMPRESSION: Head CT: Linear area of high signal in the right posterior frontal lobe may represent an area of casandra ical hemorrhagic contusion. C-spine CT: Advanced degenerative changes, no acute abnormality. RADIATION DOSE DELIVERED: Total DLP DATA REPOSITORY: All CT scans at this facility are submitted to the National Radiology Data Registry (NRDR) Dose Index Registry (DIR) with the [employer] (ACR). RADIATION OPTIMIZATION: All CT scans at this facility use at least one of these dose optimization te chniques: automated exposure control; mA and/or kV adjustment per patient size (includes targeted exa ms where dose is matched to clinical indication); or iterative reconstruction.
--- NOTE | 2024-06-14 14:30 | RT.EKG_ITS ---
APPROVED REPORT Exam: Resting ECG Reason for Exam: tachycardia Patient Location: E HR:153 bpm ECG Measurements Heart Rate 153 AXIS MS [id number] P [id number] QRSd 97 QRS 46 QT 291 T 61 QTc 465 Conclusion Atrial fibrillation with rapid V-rate...A-rate 292 Repolarization abnormality, prob rate related...ST dep, T neg, tachycardia
--- NOTE | 2024-06-14 14:30 | DI.RAD_ITS ---
Exam(s) XR PELVIS AP XR FEMUR RT EXAM: XR PELVIS AP CLINICAL HISTORY: trauma. TECHNIQUE: 2D digital imaging was performed. Single AP view. COMPARISON: CR,XR XR FEMUR RT from 06/14/2024 FINDINGS: BONES: Comminuted intertrochanteric fracture of the proximal right femur. Varus angulation and some overriding of fracture fragments. The lesser trochanter is fractured as a separate fragment. No add itional fractures seen in the pelvis or more distally in the femur. No bony destructive lesion is se en. JOINTS: No dislocation present. The SI joints and pubic symphysis appear intact. Mild degenerative changes of both hips. Knee is unremarkable as visualized. SOFT TISSUE: Normal. IMPRESSION: Comminuted intertrochanteric fracture of the right femur. DATA REPOSITORY: RADIATION DOSE DELIVERED:
--- NOTE | 2024-06-14 14:30 | DI.RAD_ITS ---
Exam(s) XR CHEST 1V IN DI DEPT EXAM: XR CHEST 1V IN DI DEPT CLINICAL HISTORY: trauma TECHNIQUE: 2D digital imaging was performed. COMPARISON: CT CT CHEST LUNG CANCER SCREEN from 12/27/2023 FINDINGS: Leads overlie the chest. LUNGS: Clear. No pleural abnormality seen. HEART: Enlarged. Watchman device. AORTA: Normal diameter. BONES: Left shoulder prosthesis. Soft tissues: Unremarkable. IMPRESSION: No acute findings. DATA REPOSITORY: RADIATION DOSE DELIVERED:
--- NOTE | 2024-06-14 14:52 | W.ED.GENAD ---
Discharge Plan Disposition Patient Disposition: Transfer-Acute Inpatient Care Specific Acute Inpt Facility: [facility] Discharge Details Chief Complaint: Trauma Clinical Impression: Closed fracture of right hip, Fall, Cerebral cortical contusion-no coma, Acute urinary retention, Atrial fibrillation with rapid ventricular response Primary Care Provider: Sherri Guzman V ED Provider: Edouard Molina Home Meds and New Rx's Prescriptions: No Action gabapentin 300 mg capsule 300 mg PO TID Patient Comments: 08/23/23 renal dosing per [facility] d/c RH torsemide 20 mg tablet 40 mg PO BID Patient Comments: 08/23/23 per [facility] d/c summary RH thiamine HCl (vitamin B1) 100 mg tablet 100 mg PO DAILY Patient Comments: 08/23/23 per [facility] d/c summary RH tamsulosin 0.4 mg capsule 0.4 mg PO DAILY ferrous gluconate 324 mg (37.5 mg iron) tablet 324 mg PO DAILY metoprolol succinate 25 mg tablet extended release 24 hr 25 mg PO DAILY Patient Comments: 06/14- pt picked up a 90 day supply last on 01/23/2024 magnesium oxide 400 mg magnesium tablet 400 mg PO DAILY Xarelto 10 mg tablet 10 mg PO DAILY Rx Instructions: for 35 days hydrocodone-acetaminophen 10-325 mg tablet 1 tab PO QID PRN cyclobenzaprine 10 mg Tablet 10 mg PO TID PRN PRN citalopram 20 mg Tablet 20 mg PO QAM pantoprazole 40 mg Tablet,Delayed Release (Dr/Ec) 40 mg PO DAILY topiramate 50 mg Tablet 50 mg PO BID polyethylene glycol 3350 17 gram Powder In Packet 17 g PO DAILY PRN PRN (Reason: Constipation) Qty: 0 0RF zolpidem [Ambien] 10 mg tablet 10 mg PO QHS Patient Comments: do not take every night, allowed 20 tabs monthly HPI General Mode of arrival: EMS. Date/Time Provider Initiated Documentation: 06/14/24 14:34. Limitations to Documentation: no limitations. Information obtained by: patient and EMS. HPI Narrative: 69 yo M with history of HFrEf, COPD, treated hepatitis C without known cirrhosis, previous history of cocaine use. Daily alcohol use atrial fibrillation no longer on anticoagulation secondary to severe nosebleeds who is now presenting after a fall. Has been feeling well. Says that this morning at around 10 AM he was walking down his hallway. He normally has balance issues and his hallway is dark and he says that he tripped in the hallway and could not get back up. Landed on his right hip but has pain in the entire right leg. Thinks he might of hit his head but did not lose consciousness. Denies any chest or abdominal pain. No shortness of breath nausea or vomiting. He was able to crawl to the phone and eventually call for help. Was on the ground for about 4 hours. Says that he did not have any preceding symptoms. Related Data Home Medications ?Medication ?Instructions ?Recorded ?Confirmed citalopram 20 mg tablet 20 mg PO QAM 11/23/21 06/14/24 cyclobenzaprine 10 mg tablet 10 mg PO TID PRN PRN 11/23/21 06/14/24 pantoprazole 40 mg tablet,delayed 40 mg PO DAILY 11/23/21 06/14/24 release topiramate 50 mg tablet 50 mg PO BID 11/23/21 06/14/24 polyethylene glycol 3350 17 gram 17 g PO DAILY PRN PRN Constipation 11/29/21 06/14/24 oral powder packet #0 ea hydrocodone 10 mg-acetaminophen 1 tab PO QID PRN 05/15/23 06/14/24 325 mg tablet gabapentin 300 mg capsule 300 mg PO TID 08/23/23 06/14/24 tamsulosin 0.4 mg capsule 0.4 mg PO DAILY 08/23/23 06/14/24 thiamine HCl (vitamin B1) 100 mg 100 mg PO DAILY 08/23/23 06/14/24 tablet torsemide 20 mg tablet 40 mg PO BID 08/23/23 06/14/24 ferrous gluconate 324 mg (37.5 mg 324 mg PO DAILY 11/21/23 06/14/24 iron) tablet magnesium oxide 400 mg PO DAILY 11/21/23 06/14/24 metoprolol succinate 25 mg 25 mg PO DAILY 11/21/23 06/14/24 tablet,extended release 24 hr rivaroxaban 10 mg tablet (Xarelto) 10 mg PO DAILY 11/21/23 06/14/24 zolpidem 10 mg tablet (Ambien) 10 mg PO QHS 06/14/24 06/14/24 Previous Rx's ?Medication ?Instructions ?Recorded polyethylene glycol 3350 17 gram 17 g PO DAILY PRN PRN Constipation 11/29/21 oral powder packet #0 ea Allergies Allergy/AdvReac Type Severity Reaction Status Date / Time amlodipine Allergy Unknown Other (See Verified 06/14/24 15:17 Comment) trazodone Allergy Unknown Other (See Verified 06/14/24 15:17 Comment) budesonide (From Pulmicort) Allergy Other (See Verified 06/14/24 15:17 Comment) benazepril AdvReac Intermediate Swelling/Ed Verified 06/14/24 15:17 nica diazepam AdvReac Intermediate Agitation Verified 06/14/24 15:17 clonidine AdvReac Mild Dry mouth Verified 06/14/24 15:17 lisinopril AdvReac Mild Cough Verified 06/14/24 15:17 losartan AdvReac Mild Cough Verified 06/14/24 15:17 tramadol AdvReac Nauseous Verified 06/14/24 15:17 General Stated Complaint: Trauma DAYSI: 2 Review of Systems Constitutional Constitutional: Denies chills, Denies fever(s) and Reports headache(s) Eyes Eyes: Denies change in vision ENT Ears, Nose, Mouth, and Throat: Reports headache(s) and Denies odynophagia Cardiovascular Cardiovascular: Denies chest pain and Denies dyspnea Respiratory Respiratory: Denies dyspnea Gastrointestinal Gastrointestinal: Denies abdominal pain, Denies diarrhea, Denies nausea, Denies odynophagia and Denies vomiting Genitourinary Genitourinary: Denies dysuria Musculoskeletal Musculoskeletal: Denies myalgias Comments: right hip and leg pain Integumentary/Breasts Skin/Breast: Denies changing lesions Neurologic Neurologic: Denies behavioral changes and Reports headache(s) Psychiatric Psychiatric: Denies behavioral changes Endocrine Endocrine: Denies heat intolerance Hematologic/Lymphatic Hematologic/Lymphatic: Denies lymphadenopathy Exam Const Nutritional Appearance: cachectic and malnourished Orientation: alert, awake and oriented x3 [facility] Head: normal to inspection, no palpable skull fracture, normocephalic and atraumatic Ears: external ears normal General nose exam: external nose normal Mouth: moist mucous membranes Eyes Pupils: PERRL EOM: EOM intact bilaterally and No nystagmus Neck Neck: full ROM, no meningeal signs, trachea midline and no tracheal deviation Chest Chest: normal inspection of the chest Resp Auscultation: clear to auscultation bilaterally Cardio Rate: tachycardic Rhythm: other (Irregularly irregular rhythm) GI Inspection: normal to inspection Palpation: soft, no guarding, not rigid and nontender Back/Spine/Pelvis Back: No no CVA tenderness Cervical Spine: No cervical spinal tenderness Thoracic/Lumbar Spine: thoracic and lumbar spine normal to inspection, No thoracic spinal tenderness and No lumbar spinal tenderness Skin General skin exam: no rashes or lesions noted Neuro General: patient alert, patient awake and patient oriented x3 Cranial Nerves: CN's II-XI intact bilaterally, PERRL and no nystagmus Cognition: normal cognition Motor: muscle tone normal throughout and strength 5/5 throughout Sensory Exam: no sensory deficits noted Extrem Other: Tenderness to the right hip and right thigh as well as the right lower leg. Dopplerable pulses in the bilateral lower extremities at the DP and PT locations. He has 2+ edema going to the mid calf. Compartments of the bilateral lower extremity are soft. Sensation and motor intact in the bilateral lower extremities. No obvious deformities and no other tenderness in the lower extremities. No signs of trauma to the bilateral upper extremities with full range of motion of all joints without pain. Sensation motor and circulation intact in distal upper extremities bilaterally. Course Vital Signs Vital signs: Vital Signs Temperature 36.5 C 06/14/24 14:33 Pulse 168 H 06/14/24 14:33 Respiratory Rate 20 06/14/24 14:33 Blood Pressure 129/93 H 06/14/24 14:33 Temperature 36.5 C 06/14/24 14:33 Temperature Source Tympanic 06/14/24 14:33 Pulse 168 H 06/14/24 14:33 Respiratory Rate 20 06/14/24 14:33 Blood Pressure 129/93 H 06/14/24 14:33 Medical Decision Making 69 yo M with history of HFrEf, COPD, treated hepatitis C without known cirrhosis, previous history of cocaine use. Daily alcohol use atrial fibrillation no longer on anticoagulation secondary to severe nosebleeds who is now presenting after a fall. Patient gives a good history for a mechanical fall. Did not lose consciousness but did hit his head. He does not have any signs of external trauma to the head or neck but will get CT head and cervical spine to rule out hematoma or fracture. Will get chest x-ray to screen for signs of thoracic trauma such as rib fracture or pneumothorax. Pain primarily in the right hip and the right leg and will get plain films to evaluate for hip fracture, femur fracture, or tib-fib fracture. No other signs of trauma identified on examination. He was down on the ground for about 4 hours. Will check CK to look for signs of rhabdomyolysis. Will get broad labs to look for electrolyte or metabolic derangements that could be contributing. He has a history of atrial fibrillation. He was not able to take his medications today According to his reports. This includes not being able to take his prescribed metoprolol. This likely explains why he is currently in atrial fibrillation with a rapid ventricular rate up to 160 bpm. Also likely dehydrated from being on the ground and not being able to eat or drink anything this morning. Will give some diltiazem IV to help with A-fib with RVR and give some gentle IV fluids additionally. Will await initial testing and response to treatment and reevaluate. 645pm Plain films showed an obvious right intertrochanteric hip fracture. Obtain CT to further demonstrate this. No other fracture in the leg. No other injuries on plain films. EKG showed atrial fibrillation with rapid ventricular rate and his rates rapidly improved with a single dose of IV diltiazem here. Did need a second dose. Now rate controlled with rates between 100 910. Blood pressures remained stable and vital signs otherwise stable. Labs grossly unremarkable. I originally was speaking with our orthopedic team here in addition to the anesthesia team to consider operative repair of the right leg. His initial evaluation of his CT head and cervical spine by this provider was unremarkable. Radiology was reading a possible contusion versus hemorrhage to the right frontal lobe. Operative repair would have been risky here given patient's medical comorbidities and clinical exam consistent with poor peripheral perfusion. Performed bedside echo but difficult to assess ejection fraction given atrial fibrillation. Suspect that it could be reduced given his mottling of skin in the peripheral extremities. Likely peripheral vascular disease given his long history of smoking as well. Ultimately spoke with [facility] to consider transfer given the CT head findings and higher risk surgery for this patient's repair of the right hip. Spoke to Dr. Lorenzana with the trauma team who agrees to accept the patient to the emergency department. Patient did develop some urinary retention here after pain medication and Goldman catheter was placed. Otherwise remained hemodynamically stable. Patient was agreeable to transfer. He did have a small amount of ethanol on his labs here. Sounds like he does go a few days regularly without any drinks and does not have withdrawal symptoms. Would still need to be monitored closely for signs of alcohol withdrawal while he is inpatient. Differential Diagnosis Differential Diagnosis: Differential diagnosis includes A-fib with RVR, arrhythmia, hyponatremia, h Medical Records Medical records reviewed: Yes I reviewed the patient's medical records. Medical records narrative: Hospitalist discharge summary on 06/25/2023 shows severe illness in setting of possible toxic shock secondary to epistaxis. Explains why he is no longer on a blood thinner. Imaging Data Radiologic Study: Attestation: I personally reviewed and interpreted this imaging study as follows: Imaging: CT Scan (head and cervical spine) Radiologist's impression: PROCEDURE INFORMATION: Exam: CT Head Without Contrast Exam date and time: 06/14/2024 3:39 PM Age: 69 years old Clinical indication: Other: Trauma TECHNIQUE: Imaging protocol: Computed tomography of the head without contrast. COMPARISON: CT CERVICAL SPINE WO 11/11/2021 7:27 PM FINDINGS: Brain: Stover-white matter differentiation is within normal limits. No mass effect or midline shift. There is a linear focus of density along the cortex of the right frontal lobe and adjacent periventricular white matter (83 series 2, 36 series 4, 44 series 5). There are nonspecific rzok-gv-wskjbhfo patchy and confluent foci of periventricular white matter hypodensity, probably due to chronic microvascular ischemic changes. Sulci and basilar cisterns are prominent due to parenchymal volume loss. No extra-axial fluid collection. Cerebral ventricles: No ventriculomegaly. Paranasal sinuses: There is mild retention cyst in the right anterior ethmoidal air cells. Mastoid air cells: Visualized mastoid air cells are well aerated. Orbital cavities: There are bilateral intra-ocular lens implants. Bones: Unremarkable. No acute fracture. Soft tissues: Unremarkable. IMPRESSION: 1. Vague linear density along the right frontal lobe cortex which extends to right frontal periventricular white matter (83 series 2) suspicious of mild degree of contusion on the surface of the cortex. There is no surrounding edema or mass effect or significant volume. 2. Dnci-ze-krcinvtw chronic small vessel ischemic changes and mild parenchymal volume loss. PROCEDURE INFORMATION: Exam: CT Cervical Spine Without Contrast Exam date and time: 06/14/2024 3:39 PM Age: 69 years old Clinical indication: Other: Trauma TECHNIQUE: Imaging protocol: Computed tomography of the cervical spine without contrast. COMPARISON: CT CERVICAL SPINE WO 11/11/2021 7:27 PM FINDINGS: Bones: No acute fracture. Normal alignment.. There is straightening of cervical lordosis. Mild grade 1 anterolisthesis of C7 on T1. Disc degenerative changes with jruv-pq-[id number] loss of disc height at C5-C6 and C6-C7. There is mild loss of disc height at C4-C5. There are bulky anterior spurring or flowing osteophytes along the anterior longitudinal ligament at the level of C3-C4, C4-C5 and C6-C7. Multilevel mild osteophyte disc complex without critical spinal canal stenosis. Paranasal sinuses: There is mild retention cyst in the right maxillary sinus.. . Lungs: Lung apices are normal. Soft tissues: Unremarkable. IMPRESSION: No acute fracture or subluxation. Dictated and Authenticated by: Javier Gan MD. Radiologic Study #2: Imaging: CT Scan (right lower extremity) Radiologist's impression: Exam: CT Right Lower Extremity Without Contrast Exam date and time: 06/14/2024 4:04 PM Age: 69 years old Clinical indication: Other: Trauma, fall, hip fracture TECHNIQUE: Imaging protocol: CT of the right lower extremity without contrast was performed. COMPARISON: MR LOWER JOINT RT WO 05/26/2021 10:06 AM FINDINGS: Bones/joints: Comminuted displaced and impacted trochanteric fracture proximal right femur. The bones are demineralized. Degenerative arthritis in the lower lumbar spine. Degenerative arthritis sacroiliac joints. Degenerative arthritis in the right knee. Soft tissues: Soft tissue edema about the right hip. Diffuse subcutaneous edema right lower leg, ankle, and foot. Vasculature: Vascular calcifications. Reproductive: Prostate calcifications. IMPRESSION: Comminuted displaced and impacted trochanteric fracture proximal right femur. Radiologic Study #3: Attestation: I personally reviewed and interpreted this imaging study as follows: Imaging: X-Ray (CHEST) Radiologist's impression: PROCEDURE INFORMATION: Exam: XR Chest Exam date and time: 06/14/2024 3:48 PM Age: 69 years old Clinical indication: Other: Trauma TECHNIQUE: Imaging protocol: Radiologic exam of the chest. Views: 1 view. COMPARISON: CT CHEST LUNG CANCER SCREEN 12/27/2023 2:46 PM FINDINGS: Lungs: Lungs are clear with no infiltrate or nodule. Pleural spaces: Unremarkable. No pleural effusion. No pneumothorax. Heart/Mediastinum: Cardiomegaly Bones/joints: Left shoulder prosthesis. IMPRESSION: No active cardiopulmonary disease. Lab Data Lab results reviewed: Yes I reviewed the patient's lab results. Labs: CBC unremarkable. No anemia. No thrombocytopenia. Mild hyponatremia with sodium to 135. Creatinine to 1.4 and most recently hospitalized in 2023 with creatinine to 3.0. Otherwise remainder of comprehensive metabolic panel and cardiac enzymes unremarkable. proBNP is mildly elevated at 6679 but this does look more chronic. ECG Data Attestation: I personally reviewed and interpreted this ECG (s) as follows: Prior ECG tracings: available for review Interpretation: A-fib with RVR with rates up to 150. Normal axis. No ST or T wave changes. Similar to prior EKG with atrial fibrillation. Quality:SDOH Health Related Social Needs: No Data to Display Critical Care Time Critical Care Time Critical Care Time: Yes Total Critical Care Time: 45 Attestation: 45 minutes of critical care time exclusive of procedure and documentation time. PFS All Active Problems (Updated 06/14/24 @ 18:53 by Edouard Molina MD) Atrial fibrillation with rapid ventricular response (Acute) Acute urinary retention (Acute) Cerebral cortical contusion-no coma (Acute) Fall (Acute) Closed fracture of right hip (Acute) Recurrent epistaxis (Acute) Chronic kidney disease (Chronic) Heart failure with reduced ejection fraction (Acute) Hepatitis C (Chronic) Per H&P: s/p tx. . He had an abc CT earlier this year which showed a normal liver. Normal anion gap metabolic acidosis (Acute) High anion gap metabolic acidosis (Acute) Lactic acidosis (Acute) Coagulopathy (Acute) Leukocytosis (Acute) Hyperphosphatemia (Acute) Hypocalcemia (Acute) Encephalopathy (Acute) Shock circulatory (Acute) Hyperkalemia (Acute) Acute renal failure (Acute) Acute liver failure (Acute) HFrEF (heart failure with reduced ejection fraction) (Acute) Anemia due to blood loss (Acute) Elevated liver enzymes (Acute) Acute posterior epistaxis (Acute) Acute anterior epistaxis (Acute) COPD (chronic obstructive pulmonary disease) (Chronic) Closed right clavicular fracture (Acute ~11/2021) Right shoulder pain (Acute) CHF (congestive heart failure) (Chronic) No-show for appointment (Acute) Left leg weakness (Acute) MCL sprain of right knee (Acute) Alcohol abuse (Chronic) Chest discomfort (Chronic) Acute on chronic diastolic heart failure (Acute) Bilateral pleural effusion (Acute) Falls (Acute) Pulmonary nodule (Acute) Acute respiratory failure with hypoxia (Acute) Pneumonia (Acute) Acute respiratory distress (Acute) Femur fracture, right (Acute) Fracture, rib (Acute) A-fib (Chronic) Laceration of digital nerve of left thumb (Acute) Gastritis and duodenitis (Acute) Medical History JOS (acute kidney injury) Leg edema Cardiogenic shock Tobacco use Back pain Obesity Chronic pain Asthma Adjustment disorder Pain in left wrist Right hip pain Insomnia Medication monitoring encounter History of depression Opioid withdrawal Cataract Blurred vision Patella-femoral syndrome Trochanteric bursitis Knee pain, right Rib pain Hx of viral pneumonia Lumbar radiculopathy Cocaine abuse Lightheadedness Abdominal pain in male Positive urine drug screen Dyspnea on exertion Voiding dysfunction Clavicle pain Arthritis Neck fracture Per pt. states he broke his nevk 5-6 years ago. 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
[2024-06-14] MEDS: dilTIAZem 25 MG/5 ML VIAL 20 MG IVP ×3 (15:21→19:30)
[2024-06-14] MEDS: Normal Saline 1,000 ML 1000 ML IV (15:22)
[2024-06-14 15:33] LABS: Abs Immature Grans 0.06 10^3/uL (0.0-0.06); Absolute Basophil Count 0.04 10^3/uL (0.0-0.2); Absolute Monocyte Count 1.17 10^3/uL (0.1-0.8); Basophils % 0.3 %; Eosinophils % 0.8 %; HCT 45.6 % (40.0-50.0); HGB 15.2 g/dL (13.5-17.5); Immature Grans % 0.5 %; Lymphocytes % 4.2 %; MCH 35.1 pg (27.0-33.0); MCHC 33.3 % (32.0-36.0); MCV 105 fL (80-95); MPV 10.4 fL (8.0-11.0); Monocytes % 9.9 %; Neutrophils % 84.3 %; Platelet Count 129 10^3/uL (130-400); RBC 4.33 10^6/uL (4.36-5.78); RDW 12.1 % (11.8-14.1); RDW-SD 47.5 fL; WBC 11.83 10^3/uL (4.4-10.8)
--- NOTE | 2024-06-14 15:36 | NUR.NOTE ---
Nursing Note: Med rec verified w/Pharmacist Rahul @ [facility]. Patient has not picked up his metoprolol since 2023, he had received a 90 day supply. Patient was also recently prescribed a new medication, Zolpidem 10mg Po QHS with an allotment of 20 tabs/month prescribed by Dr. Machado which was picked up last week. Does not need refills on any of his current medications, they will begin filling his metoprolol now to be ready when he is discharged. Dr. Helena Molina was updated.
[2024-06-14 15:40] LABS: Absolute Eosinophil Count 0.09 10^3/uL (0.0-0.7); Absolute Neutrophil Count 9.97 10^3/uL (1.2-6.7)
--- NOTE | 2024-06-14 16:00 | DI.CT_ITS ---
Exam(s) CT LOWER EXTREMITY RT WO EXAM: CT LOWER EXTREMITY RT WO CLINICAL HISTORY: right hip trauma. Fx on xray. TECHNIQUE: Imaging Protocol: Axial computed tomography images with coronal and sagittal reformatted images were created and reviewed. CONTRAST MATERIAL: Noncontrast COMPARISON: CR,XR XR FEMUR RT from 06/14/2024 FINDINGS: Bones: Comminuted intertrochanteric fracture. The lesser trochanter and greater trochanters are fra ctured as separate fragments. There is impaction and varus angulation. There is also external rota tion of the femur approximately 90 degrees. No cellulitic or osteomyelitic changes are identified. Degenerative subchondral cyst in anterior aspect of proximal tibia. Joints: The hip, knee and ankle joint spaces are maintained. Knee joint effusion. Soft Tissues: Significant soft tissue edema noted below the level of the knee through the level of t he foot. No localized collection. Soft tissue swelling around left hip. Chronic appearing calcific ations adjacent to the medial femoral condyle. Intrapelvic contents: Enlarged prostate. Bladder wall thickening. Large quantity of stool. Severe arterial calcifications involving common iliac arteries. Distally there is mild vascular calcificati on.. IMPRESSION: Comminuted intertrochanteric fracture of the right femur with impaction, varus angulation as well as external rotation of the femoral shaft. RADIATION DOSE DELIVERED: Total DLP DATA REPOSITORY: All CT scans at this facility are submitted to the National Radiology Data Registry (NRDR) Dose Index Registry (DIR) with the [employer] (A[employer]). RADIATION OPTIMIZATION: All CT scans at this facility use at least one of these dose optimization te chniques: automated exposure control; mA and/or kV adjustment per patient size (includes targeted exa ms where dose is matched to clinical indication); or iterative reconstruction.
[2024-06-14 16:04] LABS: ALT 22 U/L (16-63); AST 29 U/L (15-37); Albumin 3.5 g/dL (3.4-5.0); Alkaline Phosphatase 91 U/L (46-116); Anion Gap 10.8 mmol/L (3-11); BUN 13 mg/dL (7-18); Bilirubin, Total 1.5 mg/dL (0.2-1.0); CO2 23.2 mmol/L (21.0-32.0); CREATININE 1.4 mg/dL (0.70-1.30); Calcium 9.6 mg/dL (8.5-10.1); Chloride 101 mmol/L (98-107); Creatine Kinase 317 U/L (39-308); ETHANOL BLOOD 39.1 mg/dL (<10); Estimated GFR 54.41 (mL/min/1.73m2); Glucose 131 mg/dL (74-106); NT-proBNP 6679 pg/mL (<300); Potassium 4.3 mmol/L (3.5-5.1); Sodium 135 mmol/L (136-145); Total Protein 7.9 g/dL (6.4-8.2); Troponin I 23 ng/L (<or=76)
[2024-06-14 16:12] LABS: INR 1.1 (0.9-1.1); Prothrombin Time 10.7 sec (9.1-11.1)
--- NOTE | 2024-06-14 16:17 | DI.VRAD_ITS ---
PROCEDURE INFORMATION: Exam: XR Chest Exam date and time: 06/14/2024 3:48 PM Age: 69 years old Clinical indication: Other: Trauma TECHNIQUE: Imaging protocol: Radiologic exam of the chest. Views: 1 view. COMPARISON: CT CHEST LUNG CANCER SCREEN 12/27/2023 2:46 PM FINDINGS: Lungs: Lungs are clear with no infiltrate or nodule. Pleural spaces: Unremarkable. No pleural effusion. No pneumothorax. Heart/Mediastinum: Cardiomegaly Bones/joints: Left shoulder prosthesis. IMPRESSION: No active cardiopulmonary disease. Dictated and Authenticated by: Ole Gardner MD. Orderin Jesse Nunn MD
--- NOTE | 2024-06-14 16:18 | DI.VRAD_ITS ---
PROCEDURE INFORMATION: Exam: XR Pelvis Exam date and time: 06/14/2024 3:54 PM Age: 69 years old Clinical indication: Other: Trauma, fall TECHNIQUE: Imaging protocol: Radiologic exam of the pelvis. Views: 1 or 2 view. COMPARISON: CT ABDOMEN PELVIS W 07/04/2019 3:39 PM FINDINGS: Bones/joints: There is an intertrochanteric fracture of the proximal right femur with partial overriding. There is an avulsed butterfly fragment of the lesser trochanter. No additional pelvic fractures or bony abnormality. Sacroiliac joints and pubic symphysis are intact. Soft tissues: Unremarkable. IMPRESSION: Right femoral intertrochanteric fracture. Dictated and Authenticated by: Ole Gardner MD. Orderin Jesse Nunn MD
--- NOTE | 2024-06-14 16:20 | DI.VRAD_ITS ---
PROCEDURE INFORMATION: Exam: XR Right Femur Exam date and time: 06/14/2024 3:56 PM Age: 69 years old Clinical indication: Other: Trauma fall TECHNIQUE: Imaging protocol: Radiologic exam of the right femur. Views: 2 views. COMPARISON: MR LOWER JOINT RT WO 05/26/2021 10:06 AM FINDINGS: Bones/joints: There is an intertrochanteric fracture of the proximal femur as previously reported. Distal femur is intact. The knee is normal. Soft tissues: Unremarkable. IMPRESSION: Intertrochanteric fracture. Dictated and Authenticated by: Ole Gardner MD. Orderin Jesse Nunn MD
[2024-06-14] MEDS: Ondansetron 4 MG/2 ML VIAL IVP (16:28)
[2024-06-14] MEDS: MORPHine 10 MG/ML VIAL 2 MG IVP ×3 (16:28→19:29)
--- NOTE | 2024-06-14 16:42 | DI.VRAD_ITS ---
Addendum created by Javier Gan DO on 06/14/2024 4:46:20 PM EDT: THIS REPORT CONTAINS FINDINGS THAT MAY BE CRITICAL TO PATIENT CARE. The findings were verbally communicated via telephone conference at 4:45 PM EDT on 06/14/2024 with EDMAR AVALOS The findings were acknowledged and understood. Initial report created on 06/14/2024 4:42:27 PM EDT: PROCEDURE INFORMATION: Exam: CT Head Without Contrast Exam date and time: 06/14/2024 3:39 PM Age: 69 years old Clinical indication: Other: Trauma TECHNIQUE: Imaging protocol: Computed tomography of the head without contrast. COMPARISON: CT CERVICAL SPINE WO 11/11/2021 7:27 PM FINDINGS: Brain: Stover-white matter differentiation is within normal limits. No mass effect or midline shift. There is a linear focus of density along the cortex of the right frontal lobe and adjacent periventricular white matter (83 series 2, 36 series 4, 44 series 5). There are nonspecific [id number] patchy and confluent foci of periventricular white matter hypodensity, probably due to chronic microvascular ischemic changes. Sulci and basilar cisterns are prominent due to parenchymal volume loss. No extra-axial fluid collection. Cerebral ventricles: No ventriculomegaly. Paranasal sinuses: There is mild retention cyst in the right anterior ethmoidal air cells. Mastoid air cells: Visualized mastoid air cells are well aerated. Orbital cavities: There are bilateral intra-ocular lens implants. Bones: Unremarkable. No acute fracture. Soft tissues: Unremarkable. IMPRESSION: 1. Vague linear density along the right frontal lobe cortex which extends to right frontal periventricular white matter (83 series 2) suspicious of mild degree of contusion on the surface of the cortex. There is no surrounding edema or mass effect or significant volume. 2. Iszd-et-[id number] chronic small vessel ischemic changes and mild parenchymal volume loss. PROCEDURE INFORMATION: Exam: CT Cervical Spine Without Contrast Exam date and time: 06/14/2024 3:39 PM Age: 69 years old Clinical indication: Other: Trauma TECHNIQUE: Imaging protocol: Computed tomography of the cervical spine without contrast. COMPARISON: CT CERVICAL SPINE WO 11/11/2021 7:27 PM FINDINGS: Bones: No acute fracture. Normal alignment.. There is straightening of cervical lordosis. Mild grade 1 anterolisthesis of C7 on T1. Disc degenerative changes with ydnt-ks-[id number] loss of disc height at C5-C6 and C6-C7. There is mild loss of disc height at C4-C5. There are bulky anterior spurring or flowing osteophytes along the anterior longitudinal ligament at the level of C3-C4, C4-C5 and C6-C7. Multilevel mild osteophyte disc complex without critical spinal canal stenosis. Paranasal sinuses: There is mild retention cyst in the right maxillary sinus.. . Lungs: Lung apices are normal. Soft tissues: Unremarkable. IMPRESSION: No acute fracture or subluxation. Dictated and Authenticated by: Javier Gan MD. Orderin Jesse Nunn MD
--- NOTE | 2024-06-14 17:27 | DI.VRAD_ITS ---
PROCEDURE INFORMATION: Exam: CT Right Lower Extremity Without Contrast Exam date and time: 06/14/2024 4:04 PM Age: 69 years old Clinical indication: Other: Trauma, fall, hip fracture TECHNIQUE: Imaging protocol: CT of the right lower extremity without contrast was performed. COMPARISON: MR LOWER JOINT RT WO 05/26/2021 10:06 AM FINDINGS: Bones/joints: Comminuted displaced and impacted trochanteric fracture proximal right femur. The bones are demineralized. Degenerative arthritis in the lower lumbar spine. Degenerative arthritis sacroiliac joints. Degenerative arthritis in the right knee. Soft tissues: Soft tissue edema about the right hip. Diffuse subcutaneous edema right lower leg, ankle, and foot. Vasculature: Vascular calcifications. Reproductive: Prostate calcifications. IMPRESSION: Comminuted displaced and impacted trochanteric fracture proximal right femur. Dictated and Authenticated by: Galina Ring MD. Orderin Jesse Nunn MD
[2024-06-14] MEDS: Lidocaine 2% Jelly 6 ML SYR (19:50)
== END 2024-06-14 19:40 | disposition short-term general hospital (02) ==
PROVIDERS: Emergency Provider Student in an Organized Health Care Education/Training Program; PCP Family Medicine
DX: S72.141A Displaced intertrochanteric fracture of right femur, initial encounter for closed fracture (principal); S06.2X0A Diffuse traumatic brain injury without loss of consciousness, initial encounter; I48.91 Unspecified atrial fibrillation; R33.9 Retention of urine, unspecified; I11.0 Hypertensive heart disease with heart failure; I50.22 Chronic systolic (congestive) heart failure; F17.210 Nicotine dependence, cigarettes, uncomplicated; W18.39XA Other fall on same level, initial encounter; Y93.89 Activity, other specified; Y92.018 Other place in single-family (private) house as the place of occurrence of the external cause
CPT/HCPCS: 36415; 73552; 80053; 82550; 93005; 96361; 96374; 96375; 96376; 99285; 70450; 71045; 72125; 72170; 73700; 80320; 83880; 84484; 85025; 85610; 93010; J2270; J2405

== ENCOUNTER 2024-06-26 15:10 | Inpatient (IN) | payer MEDICARE, MEDICAID, SELFPAY ==
--- NOTE | 2024-06-26 15:09 | W.PM.HP.N ---
Date of service: 06/26/24 Time of Service: 15:10 Assessment and Plan Assessment and plan (1) Fracture, intertrochanteric, right femur: Status: Acute Assessment and plan: [place] [facility] [place] by cephalomedullary nail fixation with subsequent complications and ICU stay PT hip precautions Lovenox SC for 20 days then Eliquis as per discussion at [facility] pain management: APAP scheduled PRN hydromorphone and dosing prior to PT also on gabapentin for chronic pain On PPI for chronic GERD Ortho f/u 07/07/24 (2) Heart failure with reduced ejection fraction: Status: Acute Assessment and plan: Past TTE from 07/2023 w LVEF 35- 40% in the setting of RLL, mid and lower segmental emboli on 06/14 Aggressive diuresis with furosemide 20 mg QD and booivfjcp45.5 mg QD at [facility] ( -2.5l/ 24 hours) Will continue to evaluate for S&S and reinstate low dose furosemide PRN Continue medical management with metoprolol (3) Candidal UTI (urinary tract infection): Status: Acute Assessment and plan: On oral fluconazole (4) Hyponatremia: Status: Resolved Assessment and plan: BMP in AM (5) Anemia due to blood loss: Status: Acute Assessment and plan: CBC in AM oral iron (6) Hematoma of right thigh: Status: Acute Assessment and plan: Ongoing monitoring (7) JOS (acute kidney injury): (8) Acute pulmonary embolus: Status: Acute Assessment and plan: on LMWH BID for 20 days Eliquis after 20 days (9) Paroxysmal A-fib: Status: Acute (10) Nicotine dependence: Status: Acute (11) Deep vein thrombosis: Status: Chronic Assessment and plan: Peronal vein left calf (12) Protein malnutrition: Status: Acute Assessment and plan: oral protein TID Nutrition consult (13) AAA (abdominal aortic aneurysm): Status: Acute Assessment and plan: As per CT on 06/14/24- 3.5 cm Outpatient surveillance (14) Essential hypertension: Status: Acute Assessment and plan: Was on HCTZ at home - GMDT to be initiated and Rx added gradually Ongoing toprol (15) Stage II pressure ulcer of sacral region: Status: Acute Assessment and plan: Optiview clear dressing with daily monitoring- dressing change as per order OOB to chair frequent position change and avoid pressure on sacral area (16) COPD (chronic obstructive pulmonary disease): Status: Chronic Assessment and plan: 1/2 pack/day smoker, not interested in cessation PRN nebs Discussed with Dr. Woods History of Present Illness History of Present Illness Chief Complaint: s/p right hip fracture cephalomedullary repair, PE, DVT, hematoma Narrative: This 69 yo male patient with a past medical history of nicotine dependence , COPD, HFrEF, atrial fibrillation on metoprolol but not on anticoagulant, is [place] [facility] [place] 06/14/24 for repair of right hip intratrochanteric fracture sustained during mechanical fall at home. Cephalomedullary nail procedure completed on 06/16/24 with subsequent ICU saty d/t refractory hypotension with vasopressor infusion, PE, DVT, exacerbation of HFrEF, JOS and post-op anemia d/t acute blood loss, lydia funguria. On arrival the patient denied chills, fevers, headache, chest pain, SOB, cough, nausea, vomiting diarrhea or dysuria but reported sacral pain; stage II 1cm X1cm sacral decubitus assesseed beneath the mepilex border. The patient declined CPR and intubation. Review of Systems All systems reviewed & are unremarkable except as noted in HPI and below PFSH All Active Problems (Updated 06/26/24 @ 18:51 by Renee Liriano APRN) Stage II pressure ulcer of sacral region (Acute) Essential hypertension (Acute) AAA (abdominal aortic aneurysm) (Acute) Protein malnutrition (Acute) Deep vein thrombosis (Chronic) Nicotine dependence (Acute) Paroxysmal A-fib (Acute) Acute pulmonary embolus (Acute) Hematoma of right thigh (Acute) Candidal UTI (urinary tract infection) (Acute) Fracture, intertrochanteric, right femur (Acute) Atrial fibrillation with rapid ventricular response (Acute) Acute urinary retention (Acute) Cerebral cortical contusion-no coma (Acute) Fall (Acute) Closed fracture of right hip (Acute) Recurrent epistaxis (Acute) Chronic kidney disease (Chronic) Heart failure with reduced ejection fraction (Acute) Hepatitis C (Chronic) Per H&P: s/p tx. . He had an abc CT earlier this year which showed a normal liver. Normal anion gap metabolic acidosis (Acute) High anion gap metabolic acidosis (Acute) Lactic acidosis (Acute) Coagulopathy (Acute) Leukocytosis (Acute) Hyperphosphatemia (Acute) Hypocalcemia (Acute) Encephalopathy (Acute) Shock circulatory (Acute) Hyperkalemia (Acute) Acute renal failure (Acute) Acute liver failure (Acute) HFrEF (heart failure with reduced ejection fraction) (Acute) Anemia due to blood loss (Acute) Elevated liver enzymes (Acute) Acute posterior epistaxis (Acute) Acute anterior epistaxis (Acute) COPD (chronic obstructive pulmonary disease) (Chronic) Closed right clavicular fracture (Acute ~11/2021) Right shoulder pain (Acute) CHF (congestive heart failure) (Chronic) No-show for appointment (Acute) Left leg weakness (Acute) MCL sprain of right knee (Acute) Alcohol abuse (Chronic) Chest discomfort (Chronic) Acute on chronic diastolic heart failure (Acute) Bilateral pleural effusion (Acute) Falls (Acute) Pulmonary nodule (Acute) Acute respiratory failure with hypoxia (Acute) Pneumonia (Acute) Acute respiratory distress (Acute) Femur fracture, right (Acute) Fracture, rib (Acute) A-fib (Chronic) Laceration of digital nerve of left thumb (Acute) Gastritis and duodenitis (Acute) Medical History JSO (acute kidney injury) Leg edema Cardiogenic shock Tobacco use Back pain Obesity Chronic pain Asthma Adjustment disorder Pain in left wrist Right hip pain Insomnia Medication monitoring encounter History of depression Opioid withdrawal Cataract Blurred vision Patella-femoral syndrome Trochanteric bursitis Knee pain, right Rib pain Hx of viral pneumonia Lumbar radiculopathy Cocaine abuse Lightheadedness Abdominal pain in male Positive urine drug screen Dyspnea on exertion Voiding dysfunction Clavicle pain Arthritis Neck fracture Per pt. states he broke his nevk 5-6 years ago. 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) As treatment for proximal humerus fx (DOI: 11/11/2021) History of surgery on wrist History of cataract surgery History of cataract surgery History of hand surgery Social History Smoking/Tobacco Use Status: Current every day Tobacco Type: cigarettes Smoking risk assessment performed?: Yes Alcohol Intake: current Alcohol Intake frequency: a few times a week Drug use: Never Substance use type: does not use and unknown Housing: apartment Current gender identity: male Do you feel safe at home: Yes Do you feel safe in your relationship?: Yes Additional Social history: lives alone Meds Allergies and Home Medications Allergies Allergy/AdvReac Type Severity Reaction Status Date / Time amlodipine Allergy Unknown Other (See Verified 06/26/24 16:05 Comment) trazodone Allergy Unknown Other (See Verified 06/26/24 16:05 Comment) budesonide (From Pulmicort) Allergy Other (See Verified 06/26/24 16:05 Comment) benazepril AdvReac Intermediate Swelling/Ed Verified 06/26/24 16:05 nica diazepam AdvReac Intermediate Agitation Verified 06/26/24 16:05 clonidine AdvReac Mild Dry mouth Verified 06/26/24 16:05 lisinopril AdvReac Mild Cough Verified 06/26/24 16:05 losartan AdvReac Mild Cough Verified 06/26/24 16:05 tramadol AdvReac Nauseous Verified 06/26/24 16:05 Home Medications ?Medication ?Instructions ?Recorded ?Confirmed ?Type citalopram 20 mg tablet 20 mg PO QAM 11/23/21 06/26/24 History cyclobenzaprine 10 mg tablet 10 mg PO TID PRN PRN 11/23/21 06/26/24 History pantoprazole 40 mg tablet,delayed 40 mg PO DAILY 11/23/21 06/26/24 History release topiramate 50 mg tablet 150 mg PO DAILY 11/23/21 06/26/24 History polyethylene glycol 3350 17 gram 17 g PO DAILY PRN PRN Constipation 11/29/21 06/26/24 Rx oral powder packet #0 ea gabapentin 300 mg capsule 300 mg PO TID 08/23/23 06/26/24 History tamsulosin 0.4 mg capsule 0.4 mg PO DAILY 08/23/23 06/26/24 History thiamine HCl (vitamin B1) 100 mg 100 mg PO DAILY 08/23/23 06/26/24 History tablet ferrous gluconate 324 mg (37.5 mg 324 mg PO Q48H 11/21/23 06/26/24 History iron) tablet magnesium oxide 400 mg PO BID 11/21/23 06/26/24 History metoprolol succinate 25 mg 50 mg PO DAILY 11/21/23 06/26/24 History tablet,extended release 24 hr acetaminophen 325 mg tablet 975 mg PO Q8H 06/26/24 06/26/24 History (Tylenol) albuterol sulfate 90 mcg/actuation 2 inh inhalation Q4H PRN PRN 06/26/24 06/26/24 History aerosol inhaler atorvastatin 80 mg tablet (Lipitor) 80 mg PO QPM 06/26/24 06/26/24 History digoxin 125 mcg (0.125 mg) tablet 125 mcg PO DAILY 06/26/24 06/26/24 History (Digitek) enoxaparin 30 mg/0.3 mL 30 mg subcut Q12H 06/26/24 06/26/24 History subcutaneous syringe fluconazole 100 mg tablet 200 mg PO DAILY 06/26/24 06/26/24 History hydromorphone 2 mg tablet 2 - 4 mg PO Q4H PRN 06/26/24 06/26/24 History lidocaine 5 % topical patch See Rx Instructions topical 06/26/24 06/26/24 History .COMPLEX melatonin 3 mg tablet 6 mg PO HS PRN PRN 06/26/24 06/26/24 History multivitamin 1 tab PO DAILY 06/26/24 06/26/24 History nicotine 14 mg/24 hr daily 1 patch transdermal DAILY 06/26/24 06/26/24 History transdermal patch sennosides 8.6 mg-docusate sodium 2 tab-cap PO BID 06/26/24 06/26/24 History 50 mg tablet (Senna with Docusate Sodium) Exam Narrative Exam Narrative: 69 yo male appearing older than age w/o acute distress , AOx4, heart RRR, lungs CTAB, abdomen soft, non-tender, non-distended, multiple bruising sites ( right LE, lower back, pubis, scrotum) appear stable, moves all 4 ext, RLE with DCI mepilex dressing X2 at surgical incision site for repair of right hip fx, Presente to [facility] with mepilex to sacrum covering a stage II sacral ulcer 1cm X1 cm, skin is blanching Time Spent Time spent with Patient: >75 minutes Time was spent: preparing to see the patient(eg.review tests), obtaining and/or reviewing separately otained hiistory, ordering medications,tests, procedures, referring, communicating with other health medicare contact specialist, indepentently interpreting results, counseling the patient and care coordination
[2024-06-26 15:53] VITALS: BP 129/85; PULSE 93; RESP 18; TEMP 36.4; O2SAT 99
--- NOTE | 2024-06-26 16:10 | W.PC.ACHO ---
Registration Status: Primary Language: Preferred Language: Medical / Surgical History (Last Reviewed 06/14/24 @ 14:56 by Edouard Molina MD) JOS (acute kidney injury) Leg edema Cardiogenic shock Tobacco use Back pain Obesity Chronic pain Asthma Adjustment disorder Pain in left wrist Right hip pain Insomnia Medication monitoring encounter History of depression Opioid withdrawal Cataract Blurred vision Patella-femoral syndrome Trochanteric bursitis Knee pain, right Rib pain Hx of viral pneumonia Lumbar radiculopathy Cocaine abuse Lightheadedness Abdominal pain in male Positive urine drug screen Dyspnea on exertion Voiding dysfunction Clavicle pain Arthritis Neck fracture Depression Hypertension Upper GI bleed Varices of esophagus determined by endoscopy Alcohol withdrawal (Last Reviewed 06/14/24 @ 14:56 by Edouard Molina MD) 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) History of surgery on wrist History of cataract surgery History of cataract surgery History of hand surgery Most Recent Vital Signs Temperature 36.4 C L 06/26/24 15:53 Pulse 93 H 06/26/24 15:53 Pulse Rhythm Irregular 06/26/24 15:53 Respiratory Rate 18 06/26/24 15:53 Respiratory Effort Normal 06/26/24 15:53 Respiratory Depth Normal 06/26/24 15:53 Respiratory Pattern Normal 06/26/24 15:53 Blood Pressure 129/85 06/26/24 15:53 Pulse Oximetry 99 06/26/24 15:53 Oxygen Delivery Method Room Air 06/26/24 15:53 Oxygen Flow Rate 0 06/26/24 15:53 Pain Level 10 06/26/24 15:53 Allergies amlodipine Allergy (Unknown, Verified 06/26/24 16:05) Other (See Comment) trazodone Allergy (Unknown, Verified 06/26/24 16:05) Other (See Comment) budesonide (From Pulmicort) Allergy (Verified 06/26/24 16:05) Other (See Comment) benazepril Adverse Reaction (Intermediate, Verified 06/26/24 16:05) Swelling/Edema lower leg RH diazepam Adverse Reaction (Intermediate, Verified 06/26/24 16:05) Agitation clonidine Adverse Reaction (Mild, Verified 06/26/24 16:05) Dry mouth lisinopril Adverse Reaction (Mild, Verified 06/26/24 16:05) Cough losartan Adverse Reaction (Mild, Verified 06/26/24 16:05) Cough tramadol Adverse Reaction (Verified 06/26/24 16:05) Nauseous IV IV Catheter Type [Right Saline Lock Forearm] IV Catheter Gauge [Right 20 Forearm] Diet Orders Category Date Time Status Heart Healthy Eating [DIET] Nutrition 06/26/24 Dinner Active Intake and Output - 24 Hour Total 06/26/24 thru 06/26/24 16:04 Output Total 1050 Balance -1050 Weight 66.86 kg Output: Urine 1050 Other: Urine Color Yellow Urine Appearance Clear Urine Odor None Falls Risk Assessment History of Falls Admit Due to Fall 06/26/24 15:53 Contributing Factors No Factors 06/26/24 15:53 Ambulatory Aids Uses ambulatory device 06/26/24 15:53 Tubes/Lines None 06/26/24 15:53 Gait Evaluation W/no contributing factors 06/26/24 15:53 Cognition No cognitive impairment 06/26/24 15:53 Fall Total Score 50 06/26/24 15:53 Level of Risk Moderate Risk 06/26/24 15:53 v v v v v v v v v Sending and/or Receiving Nurses: Please use comment section below to note any information pertinent to the patient hand-off not included above. Information / Comments: A&O x4, lungs clear, hear irregular d/t afib, no cardiac edema due to diaeresis in hospital, swelling to right leg from fx and surgical fixation, uses walker w/ ambulation, urinal at bedside, right hip and back bruising. Current DVT to right leg, PE to right lung, A Fib w/ RVR, AAA (Stable) on eliquis, metop, and digoxin, lasix and sipironactone for HF and edema, litocain patch to right thigh, Hx of HF, COPD, ETOH, SMoking, Afib, DMx2, HTN, HEP C, Fall at home, transfered from [facility] to [facility] for further treatment, spent time in ICU, here for direct admit for Swingbed rehab/PT Report received from: Roque ROAMN at [facility] at [id number]
[2024-06-26] MEDS: Acetaminophen 325 MG TAB 975 MG PO ×2 (16:59→23:44)
[2024-06-26] MEDS: Gabapentin 300 MG CAP PO (17:10)
[2024-06-26] MEDS: Cyclobenzaprine 10 MG TAB PO (17:10)
[2024-06-26] MEDS: HYDROmorphone 2 MG TAB PO ×2 (17:10→21:55)
[2024-06-26 19:49] VITALS: BP 104/67; PULSE 82; RESP 19; TEMP 36.7; O2SAT 95
[2024-06-26] MEDS: Melatonin 3 MG TAB PO (20:09)
[2024-06-26] MEDS: Atorvastatin 40 MG TAB 80 MG PO (20:09)
[2024-06-26] MEDS: Enoxaparin 30 MG/0.3 ML SYR SC (20:09)
[2024-06-26] MEDS: Protein Nutritional Supplement 16 GM 1 OUNCE PACKET PO (20:09)
[2024-06-26] MEDS: Lidocaine Patch Removal 1 EACH TP (20:10)
[2024-06-27] MEDS: Gabapentin 300 MG CAP PO ×3 (02:00→17:17)
[2024-06-27] MEDS: HYDROmorphone 2 MG TAB PO ×5 (04:32→21:38)
[2024-06-27 06:05] LABS: Abs Immature Grans 0.12 10^3/uL (0.0-0.06); Absolute Lymphocyte Count 1.23 10^3/uL (1.2-3.4); Absolute Monocyte Count 0.85 10^3/uL (0.1-0.8); Absolute Neutrophil Count 7.29 10^3/uL (1.2-6.7); HCT 32.9 % (40.0-50.0); HGB 10.6 g/dL (13.5-17.5); Immature Grans % 1.2 %; Lymphocytes % 12.6 %; MCH 33.9 pg (27.0-33.0); MCHC 32.2 % (32.0-36.0); MCV 105 fL (80-95); MPV 9.2 fL (8.0-11.0); Monocytes % 8.7 %; Neutrophils % 74.5 %; Platelet Count 432 10^3/uL (130-400); RBC 3.13 10^6/uL (4.36-5.78); RDW 15.9 % (11.8-14.1); RDW-SD 60.7 fL; WBC 9.79 10^3/uL (4.4-10.8)
[2024-06-27 06:14] LABS: Macrocytosis 1+
[2024-06-27 06:16] LABS: Anion Gap 9.7 mmol/L (3-11); BUN 18 mg/dL (7-18); CO2 25.3 mmol/L (21.0-32.0); CREATININE 1.1 mg/dL (0.70-1.30); Calcium 9.3 mg/dL (8.5-10.1); Chloride 105 mmol/L (98-107); Estimated GFR 72.67 (mL/min/1.73m2); Glucose 113 mg/dL (74-106); Magnesium 1.8 mg/dL (1.8-2.4); Sodium 140 mmol/L (136-145)
[2024-06-27 07:35] VITALS: BP 128/87; PULSE 94; RESP 16; TEMP 36.3; O2SAT 98
[2024-06-27] MEDS: Pantoprazole 40 MG TABCR PO (07:35)
[2024-06-27] MEDS: Acetaminophen 325 MG TAB 975 MG PO ×3 (07:36→23:52)
--- NOTE | 2024-06-27 08:39 | PT.INIE ---
PT Notes Visit Reasons: right hip fracture Physical Therapy Inpatient Initial Evaluation Date: 06/27/2024 Referring Doctor:? Renee Liriano NP PT Orders: PT CONSULT:? S/P Ortho Surgery Precautions: Fall. Standard. WBAT on the R LE with AD. LVEF of 35-40%. Patient Profile/Admitting Diagnosis:? Patient is a 69-year-old male patient who sustained a comminuted, displaced, and impacted trochanteric fracture of the R femur and is S/P ORIF using cephalomedullary nail fixation on postoperative day 11 at [facility] [place] complicated ICU admission due to refractory hypotension and anemia from blood loss. Patient is also being managed for HFrEF, Silvia UTI, Hyponatremia, anemia due to blood loss, Hematoma of R thigh, JOS, acute pulomanry embolism, PAF, nicotine dependence, protein malnutrtion, AAA, stage 2 sacral ulcer, and COPD. PMHX: All Active Problems (Updated 06/26/24 @ 18:51 by Renee Liriano APRN) Stage II pressure ulcer of sacral region (Acute) Essential hypertension (Acute) AAA (abdominal aortic aneurysm) (Acute) Protein malnutrition (Acute) Deep vein thrombosis (Chronic) Nicotine dependence (Acute) Paroxysmal A-fib (Acute) Acute pulmonary embolus (Acute) Hematoma of right thigh (Acute) Candidal UTI (urinary tract infection) (Acute) Fracture, intertrochanteric, right femur (Acute) Atrial fibrillation with rapid ventricular response (Acute) Acute urinary retention (Acute) Cerebral cortical contusion-no coma (Acute) Fall (Acute) Closed fracture of right hip (Acute) Recurrent epistaxis (Acute) Chronic kidney disease (Chronic) Heart failure with reduced ejection fraction (Acute) Hepatitis C (Chronic) Per H&P: s/p tx. . He had an abc CT earlier this year which showed a normal liver.Normal anion gap metabolic acidosis (Acute) High anion gap metabolic acidosis (Acute) Lactic acidosis (Acute) Coagulopathy (Acute) Leukocytosis (Acute) Hyperphosphatemia (Acute) Hypocalcemia (Acute) Encephalopathy (Acute) Shock circulatory (Acute) Hyperkalemia (Acute) Acute renal failure (Acute) Acute liver failure (Acute) HFrEF (heart failure with reduced ejection fraction) (Acute) Anemia due to blood loss (Acute) Elevated liver enzymes (Acute) Acute posterior epistaxis (Acute) Acute anterior epistaxis (Acute) COPD (chronic obstructive pulmonary disease) (Chronic) Closed right clavicular fracture (Acute ~11/2021) Right shoulder pain (Acute) CHF (congestive heart failure) (Chronic) No-show for appointment (Acute) Left leg weakness (Acute) MCL sprain of right knee (Acute) Alcohol abuse (Chronic) Chest discomfort (Chronic) Acute on chronic diastolic heart failure (Acute) Bilateral pleural effusion (Acute) Falls (Acute) Pulmonary nodule (Acute) Acute respiratory failure with hypoxia (Acute) Pneumonia (Acute) Acute respiratory distress (Acute) Femur fracture, right (Acute) Fracture, rib (Acute) A-fib (Chronic) Laceration of digital nerve of left thumb (Acute) Gastritis and duodenitis (Acute) Medical History JOS (acute kidney injury) Leg edema Cardiogenic shock Tobacco use Back pain Obesity Chronic pain Asthma Adjustment disorder Pain in left wrist Right hip pain Insomnia Medication monitoring encounter History of depression Opioid withdrawal Cataract Blurred vision Patella-femoral syndrome Trochanteric bursitis Knee pain, right Rib pain Hx of viral pneumonia Lumbar radiculopathy Cocaine abuse Lightheadedness Abdominal pain in male Positive urine drug screen Dyspnea on exertion Voiding dysfunction Clavicle pain Arthritis Neck fracture Per pt. states he broke his nevk 5-6 years ago. 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 Equipment Owned/DME: SPC, FWW Subjective: In pain and PT needed to come back and make arrangement for premedication with Nurse Stevens. Agreeable to walking to the shower area after he had his pain medication. Pain report went down to 4-5/10 from 12/10 at rest but with walking pain level shot back up to 8/10 which prevented patient from reaching shower area as he needed to sit down. Objective: General Observation: Hematoma in R low back and R LE. Dressing to scaral ulcerseen. Swelling to R thigh and leg noted. Mental Status: Alert and oriented as to person and place. Some apathy observed requiring more encouragement to participate in PT. Pain: 12/10 in the R hip which subsided with pain medication intake to about 5-6/10 Vital Signs: WNL as closely monitored by nursing staff ROM: Right Lower Extremity: Hip flexion allows up to 30 degrees actively while in supine. Hip abduction allowed up to 15 degrees in supine after which PT needed to provided assiatance to R LE. Knee flexion allowed up to about 30 degrees in supine. Knee extension -45 degrees while seated at edge of bed. Ankle dorsiflexion to neutral only. Ankle plantarflexion WFL. Left Lower Extremity: Hip flexion WFL. Hip abduction WFL. Knee flexion WFL. Ankle dorsiflexion -10 degrees.? Ankle plantarflexion 20 degrees. Strength: Right Lower Extremity: Hip flexors 3-/5. Hip abductors 3-/5. Knee flexors 3-/5. Knee extensors 3-/5. Ankle dorsiflexors 3-/5. Ankle plantarflexors 4-/5. Left Lower Extremity: Hip flexors 3-/5. Hip abductors 3-/5. Knee flexors 3-/5. Knee extensors 3-/5. Ankle dorsiflexors 3-/5. Ankle plantarflexors 4-/5. Bed Mobility/Transfers: Supine to sit minimal assist Sit to supine minimal assist Sit to stand minimal assist Stand to sit minimal assist Bed to chair minimal assist Chair to bed minimal assist Gait: 20 feet + 50 feet using front-wheeled walker with minimal assist. Step-to gait pattern with antalgia. DF in L foot decreased. Mildly ataxic but no loss of balance. Step length asymmetrical. Moderate verbal cueing for safe limb movement sequence, walker management, posture, hand placement to minimze pain report and reduce fall risk. Balance: Sitting static: Good Sitting dynamic: Good Standing static: Good Standing dynamic: Fair Special Tests: Mobility Limitations Standardized Measure [facility] 6 clicks Basic Mobility Inpatient Short Form: Raw Score: 17? CMS Score:51% deficit? ? ? Informed Consent/Education:? Patient was instructed in purpose of PT consult and plan of care. Agreeable to proceed with established PT POC to achieve personal goals. Assessment: Patient is assist of 1 for all transfers and ambulation to and from the bathroom using front-wheeled walker. Skilling needed to progress strength, range of motion, and function postoperatively to facilitate return to home ultimately. Patient will also benefit from progressive balance training to reduce fall risk. Patient is a 69-year-old male patient who sustained a comminuted, displaced, and impacted trochanteric fracture of the R femur and is S/P ORIF using cephalomedullary nail fixation on postoperative day 11 at [facility] with complicated ICU admission due to refractory hypotension and anemia from blood loss. Patient is also being managed for HFrEF, Silvia UTI, Hyponatremia, anemia due to blood loss, Hematoma of R thigh, JOS, acute pulomanry embolism, PAF, nicotine dependence, protein malnutrtion, AAA, stage 2 sacral ulcer, and COPD. Patient presents with clinical signs and symptoms consistent with current/admitting diagnoses that have resulted to mobility limitations, gait instability, generalized weakness, and overall ADL decline as demonstrated by the following impairment level findings: 1.? Decreased strength to B UE/LE major muscle groups 2.? Impaired sitting/standing balance 3.? Impaired activity tolerance 4.? Limitation of joint range of motion in R hip and knee 5.? Contusion in R low back and R LE Impairments are contributing to the following functional limitations: 1.? Decline in bed mobility skills 2.? Decline in transfer skills 3.? Difficulty with ambulation 4.? Increased completion time for mobility ADL performance 5.? Increased risk for falls 6.? Difficulty with managing steps alone safely Patient is assessed as a 64082 moderate complexity based on the following: History: 69 [id number] male with past medical history as indicated above Examination: Demonstrable impairment in strength, balance, and mobility level with underlying impairments and functional limitations as exhibited above as well as deficit score of 51% utilizing the [facility] Mobility Inpatient Short Form Presentation: Evolving Decision Makin moderate complexity Goals: Goals X1 week 1. Supine-sit independent 2. Bed-Chair independent with FWW 3. Chair-Bed independent with FWW 4. Independent gait on level surface with FWW for at least 500 feet without report of pain nor dyspnea 5. Independent stair negotiation while holding onto 1 rails for at least 17 steps without report of pain nor dyspnea 6. Good static and dynamic standing balance/tolerance 7. Achieve dynamic standing balance of good to reduce fall risk Plan of Care/Treatment Plan: 1-2x/day, 7 days/week x 1 week. Patient will highly benefit from skilled physical therapy services including functional mobility training, bed mobility/transfer training, gait and balance training, therapeutic exercises, therapeutic activity, caregiver/staff/family education and training 1x/day, 7 days/week x 1 week. Plan of care has been reviewed with the SUBASSEMBLY ASSEMBLER providing the service under Physical Therapy direction. Initiate Physical Therapy intervention for strengthening, bed mobility, transfers, gait, stairs, balance training, use of assistive device. DISCHARGE RECOMMENDATIONS: [] ? Home with no services [] [] ? Home with services [] [] ? Home with outpatient PT [] [X] ? SNF for continued rehabilitation. Patient will benefit from prison facility placement for continued skilled physical therapy services in order to progress mobility level, strength, and balance in preparation for a safe discharge to home. [] ? Senior Care Care [] [] ? SNF versus LTC based on ability to participate and progress [] TREATMENT CODE/TIME: 93044 x 20 minutes for 1 unit, 81397 x 24 minutes for 2 units (8:39-8:52 and 9:15-9:46). Thank you for the opportunity to participate in the care of this patient. Lina Caballero PT, DPT, CLT [facility] [place], [place]
[2024-06-27] MEDS: Cyclobenzaprine 10 MG TAB PO (08:53)
[2024-06-27] MEDS: Thiamine 100 MG TAB PO (10:10)
[2024-06-27] MEDS: Citalopram 20 MG TAB PO (10:11)
[2024-06-27] MEDS: Magnesium Oxide 400 MG TAB PO (10:15)
[2024-06-27] MEDS: Metoprolol CR 50 MG TABCR PO (10:15)
[2024-06-27] MEDS: Tamsulosin 0.4 MG CAPCR PO (10:16)
[2024-06-27] MEDS: Ferrous Gluconate 324 MG TAB PO (10:17)
[2024-06-27] MEDS: Topiramate 50 MG TAB 150 MG PO (10:19)
[2024-06-27] MEDS: Fluconazole 100 MG TAB 200 MG PO (10:20)
[2024-06-27 10:24] VITALS: PULSE 100
[2024-06-27] MEDS: Digoxin 0.125 MG TAB PO (10:24)
[2024-06-27] MEDS: Sennosides/Docusate Sodium TAB 2 TAB PO ×2 (10:30→19:33)
[2024-06-27] MEDS: Nicotine 14 MG/24 HR PATCH TD (10:32)
[2024-06-27] MEDS: Lidocaine 5% Patch 1 PATCH TP (10:33)
[2024-06-27] MEDS: Enoxaparin 30 MG/0.3 ML SYR SC ×2 (10:39→19:34)
[2024-06-27] MEDS: Protein Nutritional Supplement 16 GM 1 OUNCE PACKET PO ×2 (10:39→13:58)
--- NOTE | 2024-06-27 11:47 | CHAPLAIN ---
Derrick was up in the chair and the LEAD NUCLEAR MEDICINE TECHNOLOGIST had just finished taking his vitals when visited. He said he's had many staff people in and out of his room this morning and felt like he needed to settle in before having a longer conversation. According to reports at [place], Derrick is here on swing bed after surgery for a hip fracture at [facility].
--- NOTE | 2024-06-27 12:59 | W.NUTCONSULT ---
Date of service: 06/27/24 Time of Service: 12:59 Nutritional Consult ASSESSMENT: received consult request regarding concerns of protein malnutrition and stage II sacral ulcer. Pt known to me from prior admission. Lives alone in apartment and does not get out much - has others help with getting food. He states he prepares his own meals but expressed apathy in cooking - generally processed foods and will skip eating due to lack of motivation at times. He reports eating better in the hospital just due to the ease of having meals and nourishments delivered. Ordered for regular diet and he is offered nutrition ONS TID - Boost on his breakfast and dinner trays with encouragement to take advantage of the larger lunch meal and high protein entrees, starchy sides. He has also been getting 8oz whey protein smoothie at 2pm nourishment time. He is also ordered for liquid protein concerntrate TID for 45g protein. Pt reports no difficulty chewing and swallowing. Pt weight has improved to where he was averaging last summer but still about 6kg or more down from 1 year ago. Nutrition focused physical exam not performed - pt declined. Obvious mild to moderate muscle wasting to temporal region observable. estimated energy needs: ~2200 kcals ([id number]), 100g protein (1.5g/kg) and 2200mL fluid (1mL per required kcal) NUTRITIONAL DIAGNOSIS: Inadequate intake related to compromised ability to perform consistent food preparation for meals and more reliance on convenience food choices combined with higher nutrition needs d/t chronic decubitus sacral ulcer. INTERVENTION: Will continue to provide preferred food choices and ons TID. MONITORING AND EVALUATION: Will follow pt regularly to monitor intake, weight, nutrition related labs. Time Spent in Nutritional Counseling and Treatment: 10 min
--- NOTE | 2024-06-27 13:16 | PT.INTREAT ---
PT Notes Visit Reasons: right hip fracture Physical Therapy Inpatient Treatment Note Date: 06/27/2024 Precautions: Fall. Standard. WBAT on the R LE with AD. Low endurance with LVEF of 35-40%, needs frequent rests. Subjective: Willing to start with exercises in bed for today. Reported pain at 6-7/10 in the R hip and thigh which Nurse Hilda is aware and managing per protocol. Objective: General Observation: Hematoma in R low back and R LE. Dressing to scaral ulcerseen. Swelling to R thigh and leg noted. Mental Status: Alert and oriented as to person and place. Some apathy observed requiring more encouragement to participate in PT. Pain: 6-7/10 in the R hip which subsided with pain medication intake to about 5-6/10 Vital Signs: WNL as closely monitored by nursing staff Bed Mobility/Transfers: Supine to sit minimal assist Sit to supine minimal assist Sit to stand minimal assist Stand to sit minimal assist Bed to chair minimal assist Chair to bed minimal assist Gait: Not performed during this session Balance: Sitting static: Good Sitting dynamic: Good THERA EX: One-on-one instrcution on safe performance of bed level exercises to minimize pain report as follows: Gluteal sets, 5 sh, x 10 Adductor squeeze, 5 sh x 10 Quads sets, 5 sh x 10 Assessment: Patient is assist of 1 for all transfers and ambulation to and from the bathroom using front-wheeled walker. Skilling needed to progress strength, range of motion, and function postoperatively to facilitate return to home ultimately. Patient will also benefit from progressive balance training to reduce fall risk. Goals: Goals X1 week 1. Supine-sit independent 2. Bed-Chair independent with FWW 3. Chair-Bed independent with FWW 4. Independent gait on level surface with FWW for at least 500 feet without report of pain nor dyspnea 5. Independent stair negotiation while holding onto 1 rails for at least 17 steps without report of pain nor dyspnea 6. Good static and dynamic standing balance/tolerance 7. Achieve dynamic standing balance of good to reduce fall risk Plan of Care/Treatment Plan: 1-2x/day, 7 days/week x 1 week. Patient will highly benefit from skilled physical therapy services including functional mobility training, bed mobility/transfer training, gait and balance training, therapeutic exercises, therapeutic activity, caregiver/staff/family education and training 1x/day, 7 days/week x 1 week. Plan of care has been reviewed with the DENTAL LABORATORY TECHNOLOGY TEACHER providing the service under Physical Therapy direction. Initiate Physical Therapy intervention for strengthening, bed mobility, transfers, gait, stairs, balance training, use of assistive device. DISCHARGE RECOMMENDATIONS: [] ? Home with no services [] [] ? Home with services [] [] ? Home with outpatient PT [] [X] ? SNF for continued rehabilitation. Patient will benefit from nursing home facility placement for continued skilled physical therapy services in order to progress mobility level, strength, and balance in preparation for a safe discharge to home. [] ? Broadcast News Producer Care [] [] ? SNF versus LTC based on ability to participate and progress [] TREATMENT CODE/TIME: [id number] x 20 minutes for 1 unit (13:16-13:26 and 13:30-13:40).
--- NOTE | 2024-06-27 13:16 | CM.SWINGPC ---
Swingbed Plan of Care Activites/Discharge Plan of care: SWING BED PROGRAM ACTIVITIES/DISCHARGE PLAN OF CARE ACTIVITIES PLAN Date: 06/27/24 Identified Need: Life enrichment during prolonged hospitalization. Intervention/Plan: TV, Online games, Reading, Puzzle books, access to [place], pet therapy, and music therapy when available. Initials AB DISCHARGE PLAN Date: 06/27/24 Identified Need: Increasing strength and mobility, and navigate 17 stairs prior to returning home. Intervention/Plan: Work with PT daily Initials AB
--- NOTE | 2024-06-27 13:17 | CM.SBPSYCH ---
Date of service: 06/27/24 Time of Service: 14:51 SB Psychosocial/Act. Assnv Hospital Admission Admission Date: 06/14/24 [place] [facility] [place] fracture Swing Bed Admission Swing Bed Admit Date:: 06/26/24 Swing Bed Level of Care: Level 1/SNF Social Supports PREVIOUS FUNCTIONAL STATUS/SOCIAL/FAMILY SUPPORTS:: Derrick lives in [facility] alone in a second floor apartment. He has a brother and sister locally and 4 children who live out of state. Geovani states that they are not in close contacts therefore they are not reliable supports. He stated that prior to this hospital admission, he could navigate his apartment stairs with some difficulty and is otherwise independent with ADL's at baseline. Prior to Admission Living Arrangements/Environment Prior to Admission:: Second floor apartment with 17 steps to enter. Lives alone with no formal and informal supports. 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 : No 's Spouse: No Benefits Financial: Social Security, Medicare and Medicaid Mandaen Active Baptism Member:: No Will Baptism Members or Range Scientist Visit:: No Importance of Mel:: N/A Advance Directives for Healthcare If no AD, do you want more information:: Yes Advance Directive Agent: None at this time Community Community Supports/Involvement: no community supports Interests Hobbies:: Enjoys watching TV and playing online games Reading:: Fiction books Other Activities:: Crossword books Present Functional Status Physical Abilities:: Able to ambulate independently, able to climb stairs with difficulty. Cognitive:: appeared alert and oriented Communication:: appeared to communicate clearly Sensory Systems: some difficulty of hearing Behavior:: He was pleasant and appreciate Medical History PAST MEDICAL HISTORY/PAST SURGICAL HISTORY:: All Active Problems (Updated 11/24/21 @ 08:54 by Jerson Delarosa) CHF (congestive heart failure) (Chronic) No-show for appointment (Acute) Left leg weakness (Acute) MCL sprain of right knee (Acute) Alcohol abuse (Chronic) Chest discomfort (Chronic) Acute on chronic diastolic heart failure (Acute) Bilateral pleural effusion (Acute) Falls (Acute) Discharge planning issues (Acute) DVT prophylaxis (Acute) Pulmonary nodule (Acute) Acute respiratory failure with hypoxia (Acute) Acute exacerbation of chronic obstructive pulmonary disease (Acute) Pneumonia (Acute) Acute respiratory distress (Acute) Femur fracture, right (Acute) Fracture, rib (Acute) A-fib (Chronic) Laceration of digital nerve of left thumb (Acute) Gastritis and duodenitis (Acute) Medical History Alcohol withdrawal Arthritis COPD (chronic obstructive pulmonary disease) Depression Hepatitis C Per H&P: s/p tx. . He had an abc CT earlier this year which showed a normal liver. Hypertension Neck fracture Per pt. states he broke his nevk 5-6 years ago. Upper GI bleed Varices of esophagus determined by endoscopy Surgical History History of cataract surgery History of cataract surgery History of hand surgery 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) As treatment for proximal humerus fx (DOI: 11/11/2021) History of surgery on wrist Admission Data Reason for Swing Bed Admission:: Increase strength and mobility and navigate 17 stairs prior to returning home. Discharge Plan:: Anticipate Geovani will return home with new PT, and with his goal of returning to baseline. He will follow [place] [facility] [place], and his community providers. Anticipate he will go via [facility] vs. private vehicle with a friend. CM will follow. Assessment: Geovani was laying in bed, conversing with PT in the room, when CM arrived. He appeared comfortable and easily engaged in conversation. Geovani was transferred [place] [facility] [place]. He lives in an apartment in [facility]. Per Geovani, he has 4 children who do not live locally, and he maintains occasional contact with them. He has 2 siblings that live local, however, they do not act as supports. He has some friends that are natural supports, and he is not associated with any community groups/supports. Per Geovani, he has no trouble with getting his needs met at home and is independent with some difficulty ambulating stairs at baseline. Geovani stated that his chief complaint is that he has consistently struggled with a pain level of 12 out of 10 since his right hip fracture and struggling to sleep. Per Geovani, no pain medication has helped. Geovani states that he is not wanting to be woken up at night, unless it is for pain medication. CM offered enrichment activities, Geovani declined. Staff Assistant: Lore Guillaume Date Assessment was completed:: 06/27/24
--- NOTE | 2024-06-27 14:07 | NUR.NOTE ---
Nursing Note: Documentation by Rodriguez Valencia, student nurse, reviewed and approved.
[2024-06-27 15:18] VITALS: BP 122/79; PULSE 87; RESP 16; TEMP 36.8; O2SAT 98
[2024-06-27] MEDS: Melatonin 3 MG TAB PO (19:34)
[2024-06-27] MEDS: Atorvastatin 40 MG TAB 80 MG PO (19:34)
[2024-06-27] MEDS: Lidocaine Patch Removal 1 EACH TP (19:58)
[2024-06-27 23:16] VITALS: BP 121/75; PULSE 95; RESP 16; TEMP 36.2; O2SAT 97
[2024-06-28] MEDS: Gabapentin 300 MG CAP PO ×3 (01:27→18:23)
[2024-06-28 07:26] VITALS: BP 130/91; PULSE 72; RESP 16; TEMP 36.8; O2SAT 98
[2024-06-28] MEDS: Enoxaparin 30 MG/0.3 ML SYR SC ×2 (08:09→20:09)
[2024-06-28] MEDS: Protein Nutritional Supplement 16 GM 1 OUNCE PACKET PO ×2 (08:09→20:09)
[2024-06-28] MEDS: Nicotine 14 MG/24 HR PATCH TD (08:10)
[2024-06-28] MEDS: HYDROmorphone 2 MG TAB PO ×3 (08:11→18:23)
[2024-06-28 08:12] VITALS: PULSE 72
[2024-06-28] MEDS: Digoxin 0.125 MG TAB PO (08:12)
[2024-06-28] MEDS: Topiramate 50 MG TAB 150 MG PO (08:12)
[2024-06-28] MEDS: Fluconazole 100 MG TAB 200 MG PO (08:12)
[2024-06-28] MEDS: Acetaminophen 325 MG TAB 975 MG PO (08:13)
[2024-06-28] MEDS: Pantoprazole 40 MG TABCR PO (08:13)
[2024-06-28] MEDS: Citalopram 20 MG TAB PO (08:13)
[2024-06-28] MEDS: Tamsulosin 0.4 MG CAPCR PO (08:13)
[2024-06-28] MEDS: Thiamine 100 MG TAB PO (08:14)
[2024-06-28] MEDS: Sennosides/Docusate Sodium TAB 2 TAB PO ×2 (08:14→20:10)
[2024-06-28] MEDS: Cyclobenzaprine 10 MG TAB PO (08:14)
[2024-06-28] MEDS: Magnesium Oxide 400 MG TAB PO (08:14)
[2024-06-28] MEDS: Metoprolol CR 50 MG TABCR PO (08:14)
[2024-06-28] MEDS: Lidocaine 5% Patch 1 PATCH TP (12:03)
--- NOTE | 2024-06-28 12:59 | PHA.REVIEW2 ---
Pharmacy Admission Review Admission Clinical Review Admission Pharmacy Review: Stage II pressure ulcer of sacral region (Acute) Essential hypertension (Acute) AAA (abdominal aortic aneurysm) (Acute) Protein malnutrition (Acute) Nicotine dependence (Acute) Paroxysmal A-fib (Acute) Acute pulmonary embolus (Acute) Hematoma of right thigh (Acute) Candidal UTI (urinary tract infection) (Acute) Fracture, intertrochanteric, right femur (Acute) Heart failure with reduced ejection fraction (Acute) Anemia due to blood loss (Acute) amlodipine Allergy (Unknown, Verified 06/26/24 16:05) Other (See Comment) trazodone Allergy (Unknown, Verified 06/26/24 16:05) Other (See Comment) budesonide (From Pulmicort) Allergy (Verified 06/26/24 16:05) Other (See Comment) benazepril Adverse Reaction (Intermediate, Verified 06/26/24 16:05) Swelling/Edema diazepam Adverse Reaction (Intermediate, Verified 06/26/24 16:05) Agitation clonidine Adverse Reaction (Mild, Verified 06/26/24 16:05) Dry mouth lisinopril Adverse Reaction (Mild, Verified 06/26/24 16:05) Cough losartan Adverse Reaction (Mild, Verified 06/26/24 16:05) Cough tramadol Adverse Reaction (Verified 06/26/24 16:05) Nauseous Resuscitation Status DNR/DNI Height 5 ft 10 in Weight 66.86 kg Comments Comments/Follow Ups: Swing bed Pharmacy Admission Review Renal Dosing Renal Dosing: BUN 18 mg/dL (7-18) 06/27/24 05:52 Creatinine 1.1 mg/dL (0.70-1.30) 06/27/24 05:52 Medications needing adjustments: Reviewed (CrCl 59.94 mL/min) List of meds needing interventions: current medications are okay Anticoagulation Anticoagulation: Hgb 10.6 g/dL (13.5-17.5) L 06/27/24 05:52 Hct 32.9 % (40.0-50.0) L 06/27/24 05:52 Plt Count 432 10^3/uL (130-400) H 06/27/24 05:52 Creatinine 1.1 mg/dL (0.70-1.30) 06/27/24 05:52 DVT Prophylaxis: Reviewed Medications: Enoxaparin (30mg q12h per [facility] [place] [facility] [place] through 5/14/25) Opiate Usage Evaluate Pain Scale/Pains Meds: Reviewed (hydromorphone 2-4mg q4h PRN - 16mg / 24 hrs) Scheduled Bowel Reg ordered if on Opiates?: Yes (senna/docusate) Relevant Labs Relevant Labs: Sodium 140 mmol/L (136-145) 06/27/24 05:52 Potassium 4.0 mmol/L (3.5-5.1) 06/27/24 05:52 Chloride 105 mmol/L (98-107) 06/27/24 05:52 Magnesium 1.8 mg/dL (1.8-2.4) 06/27/24 05:52 Electrolytes, C-Reactive P, ESR: Reviewed (No new labs for today) Cardiac Review BP, HR, EF%: Reviewed (BP 130/91, HR WNL) List meds needing interventions: Has orders for digoxin 0.125mg daily and metoprolol XL 50mg daily QTc Review QTc: Reviewed (59.94 mL/min) IV to PO Switch IV Medications: Reviewed Home Meds Home Med List reviewed: Reviewed Relevent Home Meds Not ordered & why?: multivitamin Current Meds Current Medication Order Review: Reviewed Comments Comments/Follow Ups: Swing bed
--- NOTE | 2024-06-28 13:38 | PT.INTREAT ---
PT Notes Visit Reasons: right hip fracture Physical Therapy Inpatient Treatment Note Date: 06/28/2024 Precautions: Fall. Standard. WBAT on the R LE with AD. Low endurance with LVEF of 35-40%, needs frequent rests. Subjective: Geovani declines PT x 2 occasions this morning, and is agreeable on third attempt. States that his hip remains painful. He's been up to use the bathroom with nursing a couple of times, but is agreeable to walking. Objective: General Observation: Hematoma in R low back and R LE. Swelling to R thigh and leg noted. Mental Status: Alert and oriented as to person and place. Vital Signs: WNL as closely monitored by nursing staff Bed Mobility/Transfers: Supine to sit: supervision only Sit to supine: minimal assist to LEs Sit to stand: CGA from EOB; min A from toilet Stand to sit : CGA Ambulation for improved activity tolerance: Ambulates 40' with FWW, with slow, cautious gait. Requires standing rest period after 25', but able to continue on with CGA only. ADLs: able to toilet independently during session, but with difficulty transferring to and from low toilet seat. Offered commode frame for elevated seat, although he declines. This was provided in his room, and he was educated on improving ease of transfers with use; he will consider use next time. Able to stand and use urinal with SBA only, unilateral UE support to FWW. Balance: Sitting static: Good Sitting dynamic: Good Static standing: Good Dynamic standing: fair THERA EX: One-on-one instrcution on safe performance of bed level exercises to minimize pain report as follows: Gluteal sets, 10x Ankle Pumps 10x Quads sets, 5 sh x 10 Assessment: Improving independence and activity tolerance, although continues to require assist from low seats and is unable to ambulate community distances. He requires continued skilled PT intervention to progress strength, range of motion, and function postoperatively to facilitate return to home ultimately. Patient will also benefit from progressive balance training to reduce fall risk. Discussed introducing stair training tomorrow, as he does have 17 steps to navigate at home. Goals: Goals X1 week 1. Supine-sit independent 2. Bed-Chair independent with FWW 3. Chair-Bed independent with FWW 4. Independent gait on level surface with FWW for at least 500 feet without report of pain nor dyspnea 5. Independent stair negotiation while holding onto 1 rails for at least 17 steps without report of pain nor dyspnea 6. Good static and dynamic standing balance/tolerance 7. Achieve dynamic standing balance of good to reduce fall risk Plan of Care/Treatment Plan: 1-2x/day, 7 days/week x 1 week. Patient will highly benefit from skilled physical therapy services including functional mobility training, bed mobility/transfer training, gait and balance training, therapeutic exercises, therapeutic activity, caregiver/staff/family education and training 1x/day, 7 days/week x 1 week. Plan of care has been reviewed with the INTELLECTUAL PROPERTY COUNSEL providing the service under Physical Therapy direction. Initiate Physical Therapy intervention for strengthening, bed mobility, transfers, gait, stairs, balance training, use of assistive device. DISCHARGE RECOMMENDATIONS: [X] ? SNF vs home with HHPT TREATMENT CODE/TIME: 44905 x 3, 45 minutes ([id number])
[2024-06-28] MEDS: Acetaminophen 500 MG TAB 1000 MG PO ×2 (15:32→23:55)
[2024-06-28 19:24] VITALS: BP 114/85; PULSE 95; RESP 16; TEMP 36.9; O2SAT 96
[2024-06-28] MEDS: Atorvastatin 40 MG TAB 80 MG PO (20:10)
[2024-06-28] MEDS: Celecoxib 100 MG CAP 200 MG PO (20:10)
[2024-06-28] MEDS: Melatonin 3 MG TAB PO (20:10)
[2024-06-28] MEDS: Lidocaine Patch Removal 1 EACH TP (20:12)
--- NOTE | 2024-06-28 23:10 | W.PC.ACHO ---
Registration Status: Primary Language: Preferred Language: Medical / Surgical History (Last Reviewed 06/14/24 @ 14:56 by Edouard Molina MD) JOS (acute kidney injury) Leg edema Cardiogenic shock Tobacco use Back pain Obesity Chronic pain Asthma Adjustment disorder Pain in left wrist Right hip pain Insomnia Medication monitoring encounter History of depression Opioid withdrawal Cataract Blurred vision Patella-femoral syndrome Trochanteric bursitis Knee pain, right Rib pain Hx of viral pneumonia Lumbar radiculopathy Cocaine abuse Lightheadedness Abdominal pain in male Positive urine drug screen Dyspnea on exertion Voiding dysfunction Clavicle pain Arthritis Neck fracture Depression Hypertension Upper GI bleed Varices of esophagus determined by endoscopy Alcohol withdrawal (Last Reviewed 06/14/24 @ 14:56 by Edouard Molina MD) 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) History of surgery on wrist History of cataract surgery History of cataract surgery History of hand surgery Most Recent Vital Signs Temperature 36.9 C 06/28/24 19:24 Temperature Source Temporal Artery Scan 06/28/24 19:24 Pulse 95 H 06/28/24 19:24 Pulse Rhythm Irregular 06/26/24 15:53 Respiratory Rate 16 06/28/24 19:24 Respiratory Effort Normal 06/26/24 15:53 Respiratory Depth Normal 06/26/24 15:53 Respiratory Pattern Normal 06/26/24 15:53 Blood Pressure 114/85 06/28/24 19:24 Pulse Oximetry 96 06/28/24 19:24 Oxygen Delivery Method Room Air 06/28/24 19:24 Oxygen Flow Rate 0 06/28/24 19:24 Pain Level 10 06/28/24 08:13 Allergies amlodipine Allergy (Unknown, Verified 06/26/24 16:05) Other (See Comment) trazodone Allergy (Unknown, Verified 06/26/24 16:05) Other (See Comment) budesonide (From Pulmicort) Allergy (Verified 06/26/24 16:05) Other (See Comment) benazepril Adverse Reaction (Intermediate, Verified 06/26/24 16:05) Swelling/Edema lower leg RH diazepam Adverse Reaction (Intermediate, Verified 06/26/24 16:05) Agitation clonidine Adverse Reaction (Mild, Verified 06/26/24 16:05) Dry mouth lisinopril Adverse Reaction (Mild, Verified 06/26/24 16:05) Cough losartan Adverse Reaction (Mild, Verified 06/26/24 16:05) Cough tramadol Adverse Reaction (Verified 06/26/24 16:05) Nauseous Active Medications Generic Name Dose Route Start Last Admin Trade Name Freq PRN Reason Stop Dose Admin Acetaminophen 1,000 mg 06/28/24 16:00 06/28/24 15:32 Acetaminophen 500 Mg Tab PO 1,000 mg Q8H PRICILLA Administration Atorvastatin Calcium 80 mg 06/26/24 20:00 06/28/24 20:10 Atorvastatin 40 Mg Tab PO 80 mg QPM PRICILLA Administration Celecoxib 200 mg 06/28/24 20:00 06/28/24 20:10 Celecoxib 100 Mg Cap PO 200 mg BID PRICILLA Administration Citalopram Hydrobromide 20 mg 06/27/24 08:30 06/28/24 08:13 Citalopram 20 Mg Tab PO 20 mg QAM PRICILLA Administration Cyclobenzaprine HCl 10 mg 06/26/24 16:33 06/28/24 08:14 Cyclobenzaprine 10 Mg Tab PO 10 mg TID PRN PRN Administration Digoxin 0.125 mg 06/27/24 08:30 06/28/24 08:12 Digoxin 0.125 Mg Tab PO 0.125 mg DAILY PRICILLA Administration Enoxaparin Sodium 30 mg 06/26/24 20:00 06/28/24 20:09 Enoxaparin 30 Mg/0.3 Ml Syr SC 07/16/24 19:59 30 mg Q12H PRICILLA Administration Ferrous Gluconate 324 mg 06/27/24 08:30 06/27/24 10:17 Ferrous Gluconate 324 Mg Tab PO 324 mg Q48H PRICILLA Administration Fluconazole 200 mg 06/27/24 08:30 06/28/24 08:12 Fluconazole 100 Mg Tab PO 06/29/24 23:59 200 mg DAILY PRICILLA Administration Gabapentin 300 mg 06/26/24 18:00 06/28/24 18:23 Gabapentin 300 Mg Cap PO 300 mg Q8H PRICILLA Administration Hydromorphone HCl 2 - 4 mg 06/26/24 16:52 06/28/24 18:23 Hydromorphone 2 Mg Tab PO 4 mg Q4H PRN PRN Administration Lidocaine 1 patch 06/27/24 08:30 06/28/24 12:03 Lidocaine 5% Patch TP 1 patch Q24H PRICILLA Administration Magnesium Oxide 400 mg 06/27/24 08:30 06/28/24 08:14 Magnesium Oxide 400 Mg Tab PO 400 mg DAILY PRICILLA Administration Melatonin 3 mg 06/26/24 20:00 06/28/24 20:10 Melatonin 3 Mg Tab PO 3 mg HS PRICILLA Administration Metoprolol Succinate 50 mg 06/27/24 08:30 06/28/24 08:14 Metoprolol Cr 50 Mg Tabcr PO 50 mg DAILY PRICILLA Administration Miscellaneous 1 each 06/26/24 20:30 06/28/24 20:12 Lidocaine Patch Removal TP 1 each DAILY@2030 PRICILLA Administration Multi-Ingredient Supplement 1 ounce 06/26/24 20:00 06/28/24 20:09 Protein Nutritional Supplement 16 Gm 1 Ounce Packet PO 1 ounce TID PRICILLA Administration Nicotine 14 mg 06/27/24 08:30 06/28/24 08:10 Nicotine 14 Mg/24 Hr Patch TD 14 mg DAILY PRICILLA Administration Pantoprazole Sodium 40 mg 06/27/24 07:30 06/28/24 08:13 Pantoprazole 40 Mg Tabcr PO 40 mg DAILY@0730 PRICILLA Administration Polyethylene Glycol 17 gm 06/27/24 08:30 06/28/24 08:15 Polyethylene Glycol 3350 17 Gm Packet PO Not Given DAILY PRICILLA Senna/Docusate Sodium 2 tab 06/26/24 20:00 06/28/24 20:10 Sennosides/Docusate Sodium Tab PO 2 tab BID PRICILLA Administration Tamsulosin HCl 0.4 mg 06/27/24 08:30 06/28/24 08:13 Tamsulosin 0.4 Mg Capcr PO 0.4 mg DAILY PRICILLA Administration Thiamine HCl 100 mg 06/27/24 08:30 06/28/24 08:14 Thiamine 100 Mg Tab PO 100 mg DAILY PRICILLA Administration Topiramate 150 mg 06/27/24 08:30 06/28/24 08:12 Topiramate 50 Mg Tab PO 150 mg DAILY PRICILLA Administration IV IV Catheter Type [Right Peripheral IV Forearm] IV Catheter Gauge [Right 20 Forearm] Intake and Output - 24 Hour Total 06/26/24 thru 06/28/24 20:10 Intake Total 1480 Output Total 7465 Balance -5985 Weight 66.86 kg Intake: Oral 1480 Output: Urine 7465 Other: Urine Color Yellow Urine Appearance Clear Urine Odor Normal Comment Patient used urinal with a walker and one person assist. Patient's urine is clear and a pale yellow in color with a some what strong odor. Stool Size Large Stool Characteristics Formed [place] Risk Assessment History of Falls Admit Due to Fall 06/26/24 15:53 Contributing Factors No Factors 06/26/24 15:53 Ambulatory Aids Uses ambulatory device 06/26/24 15:53 Tubes/Lines None 06/26/24 15:53 Gait Evaluation W/no contributing factors 06/26/24 15:53 Cognition No cognitive impairment 06/26/24 15:53 Fall Total Score 50 06/26/24 15:53 Level of Risk Moderate Risk 06/26/24 15:53 Problems (Last Reviewed 06/14/24 @ 14:56 by Edouard Molina MD) Stage II pressure ulcer of sacral region (Acute) Essential hypertension (Acute) AAA (abdominal aortic aneurysm) (Acute) Protein malnutrition (Acute) Deep vein thrombosis (Chronic) Nicotine dependence (Acute) Paroxysmal A-fib (Acute) Acute pulmonary embolus (Acute) Hematoma of right thigh (Acute) Candidal UTI (urinary tract infection) (Acute) Fracture, intertrochanteric, right femur (Acute) Heart failure with reduced ejection fraction (Acute) Anemia due to blood loss (Acute) COPD (chronic obstructive pulmonary disease) (Chronic) Notes 06/27/24 14:07 Nursing Notes by Kristine Watson Nursing Note: Documentation by Rodriguez Valencia, student nurse, reviewed and approved. Initialized on 06/27/24 14:07 - END OF NOTE v v v v v v v v v Sending and/or Receiving Nurses: Please use comment section below to note any information pertinent to the patient hand-off not included above. Information / Comments: Report taken from LEACH RUNNERABEL Lemon, patient is 89 yrs.old., alert and oriented at this time. brought to ER with droopy left eye, ruled out for stroke and its negative. Has dianosis of PNA. O2 placed at 2L/NC. , Daughter andre stay overnight, she is caregiver 24 hrs. at home. All questions answered promptly. Report received from:
[2024-06-29] MEDS: HYDROmorphone 2 MG TAB PO ×4 (02:08→22:04)
[2024-06-29] MEDS: Gabapentin 300 MG CAP PO ×3 (02:08→17:50)
[2024-06-29 07:02] LABS: Absolute Eosinophil Count 0.19 10^3/uL (0.0-0.7); Absolute Lymphocyte Count 1.51 10^3/uL (1.2-3.4); Absolute Monocyte Count 0.82 10^3/uL (0.1-0.8); Absolute Neutrophil Count 7.15 10^3/uL (1.2-6.7); Eosinophils % 1.9 %; HCT 34.6 % (40.0-50.0); HGB 11.2 g/dL (13.5-17.5); Lymphocytes % 15.3 %; MCH 34.1 pg (27.0-33.0); MCHC 32.4 % (32.0-36.0); MCV 106 fL (80-95); MPV 9.5 fL (8.0-11.0); Monocytes % 8.3 %; Neutrophils % 72.5 %; Platelet Count 411 10^3/uL (130-400); RBC 3.28 10^6/uL (4.36-5.78); RDW 15.7 % (11.8-14.1); RDW-SD 60.6 fL; WBC 9.87 10^3/uL (4.4-10.8)
[2024-06-29 07:14] LABS: Magnesium 1.9 mg/dL (1.8-2.4)
[2024-06-29 08:16] VITALS: BP 128/98; PULSE 79; RESP 17; TEMP 36.2; O2SAT 98
[2024-06-29] MEDS: Nicotine 14 MG/24 HR PATCH TD (09:07)
[2024-06-29] MEDS: Lidocaine 5% Patch 1 PATCH TP (09:07)
[2024-06-29] MEDS: Acetaminophen 500 MG TAB 1000 MG PO ×2 (09:08→17:08)
[2024-06-29 09:09] VITALS: PULSE 86
[2024-06-29] MEDS: Metoprolol CR 50 MG TABCR PO (09:09)
[2024-06-29] MEDS: Digoxin 0.125 MG TAB PO (09:09)
[2024-06-29] MEDS: Magnesium Oxide 400 MG TAB PO (09:09)
[2024-06-29] MEDS: Fluconazole 100 MG TAB 200 MG PO (09:09)
[2024-06-29] MEDS: Pantoprazole 40 MG TABCR PO (09:09)
[2024-06-29] MEDS: Thiamine 100 MG TAB PO (09:11)
[2024-06-29] MEDS: Ferrous Gluconate 324 MG TAB PO (09:11)
[2024-06-29] MEDS: Citalopram 20 MG TAB PO (09:11)
[2024-06-29] MEDS: Topiramate 50 MG TAB 150 MG PO (09:11)
[2024-06-29] MEDS: Celecoxib 100 MG CAP 200 MG PO ×2 (09:11→22:03)
[2024-06-29] MEDS: Tamsulosin 0.4 MG CAPCR PO (09:11)
[2024-06-29] MEDS: Enoxaparin 30 MG/0.3 ML SYR SC ×2 (10:08→22:05)
--- NOTE | 2024-06-29 11:47 | PTTR_ITS ---
PT Notes Visit Reasons: right hip fracture Physical Therapy Inpatient Treatment Note Date: 06/29/2024 Precautions: Fall. Standard. WBAT on the R LE with AD. Low endurance with LVEF of 35-40%, needs frequent rests. Subjective: Geovani is agreeable to PT today. Continues to have a great deal of p ain in the RLE. States that he was weak leading up to his fall; he's had several health issues in the past 2 years that have taken a toll, and he reports that he was very inactive over the winter months. States that he was struggling with the stairs to his apartment, and was leaving very rarely as a result. Has friends bring his groceries, etc. Objective: General Observation: Hematoma in R low back and R LE. Swelling to R thigh and leg noted. Quad atrophy noted bilat. Mental Status: Alert and oriented as to person and place. Pleasant and cooperative. Vital Signs: WNL as closely monitored by nursing staff Bed Mobility/Transfers: Supine to sit: supervision only Sit to supine: minimal assist to LEs Sit to stand: supervision Stand to sit : supervision Ambulation for improved activity tolerance: Ambulates 20'x1, 125'x1 with FWW, with slow, cautious gait, SBA only. Stairs: manages therapeutic stairs, 4x3 with bilat rails, SBA and cues for technique. ADLs: able to toilet independently during session, transferring with supervison only to and from low toilet seat. Able to stand and use urinal with SBA only, unilateral UE support to FWW. Balance: Sitting static: Good Sitting dynamic: Good Static standing: Good Dynamic standing: fair THERA EX: One-on-one instrcution on safe performance of bed level exercises to minimize pain report as follows: Gluteal sets, 10x Ankle Pumps 10x Quads sets, 5 sh x 10 SAQ: 10x2 heel slide 5x2 bridge 5x Assessment: Improving independence and activity tolerance. Remains very weak. He requires continued skilled PT intervention to progress strength, range of motion, and function postoperatively to facilitate return to home ultimately. Tolerated introduction of stair training today, navigating 3 steps. Plan of Care/Treatment Plan: 1-2x/day, 7 days/week x 1 week. Patient will highly benefit from skilled physical therapy services including functional mobility training, bed mobility/transfer training, gait and balance training, therapeutic exercises, therapeutic activity, caregiver/staff/family education and training 1x/day, 7 days/week x 1 week. Plan of care has been reviewed with the TAPE MACHINE TAILER providing the service under Physical Therapy direction. Initiate Physical Therapy intervention for strengthening, bed mobility, transfers, gait, stairs, balance training, use of assistive device. DISCHARGE RECOMMENDATIONS: [X] ? SNF vs home with HHPT TREATMENT CODE/TIME: 48388 x 1, 10494y2 45 minutes ([id number])
[2024-06-29 14:53] VITALS: BP 109/75; PULSE 85; RESP 16; TEMP 36.5; O2SAT 96
[2024-06-29 19:57] VITALS: BP 122/88; PULSE 92; RESP 19; TEMP 36.8; O2SAT 97
[2024-06-29] MEDS: Cyclobenzaprine 10 MG TAB PO (22:04)
[2024-06-29] MEDS: Melatonin 3 MG TAB PO (22:04)
[2024-06-29] MEDS: Atorvastatin 40 MG TAB 80 MG PO (22:05)
[2024-06-29] MEDS: Lidocaine Patch Removal 1 EACH TP (22:06)
[2024-06-30] MEDS: Acetaminophen 500 MG TAB 1000 MG PO ×2 (01:14→16:15)
[2024-06-30] MEDS: Gabapentin 300 MG CAP PO ×3 (01:50→17:31)
[2024-06-30 07:52] VITALS: BP 137/96; PULSE 68; RESP 14; TEMP 36.9; O2SAT 99
[2024-06-30] MEDS: Lidocaine 5% Patch 1 PATCH TP (08:15)
[2024-06-30] MEDS: HYDROmorphone 2 MG TAB PO ×3 (08:15→17:31)
[2024-06-30 08:16] VITALS: PULSE 68
[2024-06-30] MEDS: Sennosides/Docusate Sodium TAB 2 TAB PO (08:16)
[2024-06-30] MEDS: Topiramate 50 MG TAB 150 MG PO (08:16)
[2024-06-30] MEDS: Digoxin 0.125 MG TAB PO (08:16)
[2024-06-30] MEDS: Nicotine 14 MG/24 HR PATCH TD (08:18)
[2024-06-30] MEDS: Magnesium Oxide 400 MG TAB PO (08:18)
[2024-06-30] MEDS: Pantoprazole 40 MG TABCR PO (08:18)
[2024-06-30] MEDS: Metoprolol CR 50 MG TABCR PO (08:18)
[2024-06-30] MEDS: Citalopram 20 MG TAB PO (08:18)
[2024-06-30] MEDS: Tamsulosin 0.4 MG CAPCR PO (08:18)
[2024-06-30] MEDS: Celecoxib 100 MG CAP 200 MG PO ×2 (08:18→20:12)
[2024-06-30] MEDS: Thiamine 100 MG TAB PO (08:19)
[2024-06-30 12:18] VITALS: PULSE 68
--- NOTE | 2024-06-30 15:34 | PTTR_ITS ---
PT Notes Visit Reasons: right hip fracture Physical Therapy Inpatient Treatment Note Date: 06/30/2024 Precautions: Fall. Standard. WBAT on the R LE with AD. Low endurance with LVEF of 35-40%, needs frequent rests. Subjective: Geovani agreed to pt on the 4th attempt. In the morning he refused st ating he was in too much pain despite Nursing medicating him. He continues to report pain is 11/10 in his right leg and back. he notes the pain in his leg is along the front of his right thigh. Pt reports did a few of the exerciseslisted on the board in his room. He states it hurts so he doesn't like to do them. Objective: General Observation: Hematoma in R low back and R LE remains. Swelling to R thigh and leg remains. Pt with impaired quad activation in standing . Pt utilizes bracing of calf and BUE support for stability in standing. Mental Status: Alert and oriented as to person and place. Pleasant Vital Signs: WNL as closely monitored by nursing staff Bed Mobility/Transfers: Supine to sit: supervision only Sit to supine:CGA for LEs with increased time. Sit to stand: supervision with cues for hand placement Stand to sit : supervision with cues to reach back Ambulation for improved activity tolerance: Ambulates 75feet x 2 with FWW, with slow, cautious gait, SBA only.one episode of right LE instability which pt was able to compensate for without assistance Stairs: manages therapeutic stairs, 4x3 with bilat rails, 2 6 steps with B rails SBA and cues for technique. ADLs: Able to stand and use urinal with SBA only, unilateral UE support to FWW and B LE braced against bed. Balance: Sitting static: Good Sitting dynamic: Good Static standing: Good Dynamic standing: fair THERA EX: One-on-one instrcution on safe performance of bed level exercises to minimize pain report as follows: Gluteal sets, 10x Ankle Pumps 10x Quads sets, 5 sh x 5 SAQ: 10x1 heel slide 5x2 bridge 5x Assessment: pt tolerated progression with 6 steps. He demonstrates proximal musculature BLE weakness and demonstrates compensatory strategies to improve stability i.e. bracing LEs or UE support to sustain standing for toileting. He requires continued skilled PT intervention to progress strength, range of motion, and function postoperatively to facilitate return to home ultimately. Pt education provided on the benefits of frequent position changes and mobility to strengthen BLE and progress with functional mobility. Plan of Care/Treatment Plan: 1-2x/day, 7 days/week x 1 week. Patient will highly benefit from skilled physical therapy services including functional mobility training, bed mobility/transfer training, gait and balance training, therapeutic exercises, therapeutic activity, caregiver/staff/family education and training 1x/day, 7 days/week x 1 week. Plan of care has been reviewed with the PAINTER DECORATOR providing the service under Physical Therapy direction. Initiate Physical Therapy intervention for strengthening, bed mobility, transfers, gait, stairs, balance training, use of assistive device. DISCHARGE RECOMMENDATIONS: [X] ? SNF vs home with HHPT TREATMENT CODE/TIME: 42106 x 1, [id number]/ [id number]
[2024-06-30 15:36] VITALS: BP 114/76; PULSE 84; RESP 16; TEMP 36.8; O2SAT 97
[2024-06-30 19:20] VITALS: BP 108/83; PULSE 73; RESP 19; TEMP 36.7; O2SAT 97
[2024-06-30] MEDS: Enoxaparin 30 MG/0.3 ML SYR SC (20:11)
[2024-06-30] MEDS: Atorvastatin 40 MG TAB 80 MG PO (20:11)
[2024-06-30] MEDS: Melatonin 3 MG TAB PO (20:12)
[2024-06-30] MEDS: Lidocaine Patch Removal 1 EACH TP (20:13)
[2024-07-01] MEDS: HYDROmorphone 2 MG TAB PO ×4 (01:42→20:17)
[2024-07-01] MEDS: Gabapentin 300 MG CAP PO ×3 (01:42→20:17)
[2024-07-01] MEDS: Acetaminophen 500 MG TAB 1000 MG PO ×3 (01:42→17:10)
[2024-07-01 07:43] VITALS: BP 135/90; PULSE 78; RESP 18; TEMP 36.7; O2SAT 97
[2024-07-01] MEDS: Enoxaparin 30 MG/0.3 ML SYR SC ×2 (07:59→20:18)
[2024-07-01] MEDS: Ferrous Gluconate 324 MG TAB PO (07:59)
[2024-07-01] MEDS: Pantoprazole 40 MG TABCR PO (07:59)
[2024-07-01] MEDS: Citalopram 20 MG TAB PO (07:59)
[2024-07-01] MEDS: Celecoxib 100 MG CAP 200 MG PO ×2 (07:59→20:17)
[2024-07-01] MEDS: Thiamine 100 MG TAB PO (07:59)
[2024-07-01] MEDS: Digoxin 0.125 MG TAB PO (07:59)
[2024-07-01] MEDS: Magnesium Oxide 400 MG TAB PO (08:00)
[2024-07-01] MEDS: Topiramate 50 MG TAB 150 MG PO (08:00)
[2024-07-01] MEDS: Metoprolol CR 50 MG TABCR PO (08:00)
[2024-07-01] MEDS: Tamsulosin 0.4 MG CAPCR PO (08:00)
[2024-07-01] MEDS: Nicotine 14 MG/24 HR PATCH TD (08:00)
[2024-07-01] MEDS: Lidocaine 5% Patch 1 PATCH TP (08:01)
--- NOTE | 2024-07-01 11:24 | CHAPLAIN ---
Derrick was up in the chair when I visited. He's here on swing bed after a fall and injured hip. Derrick said he hasn't seen anyone, then noted that he's swing bed, so he might not see the doctor regularly. He's worked with PT which he said was painful, but necessary. He said the pain in his hip and leg have kept him from sleeping consistently. He's been in touch by phone with his sister, and a friend visited to drop clothes off. I will continue to visit.
--- NOTE | 2024-07-01 12:00 | PTTR_ITS ---
PT Notes Visit Reasons: right hip fracture Physical Therapy Inpatient Treatment Note Date: 07/01/2024 Precautions: Fall. Standard. WBAT on the R LE with AD. Low endurance with LVEF of 35-40%, needs frequent rests. Subjective: Geovani reports he has been sitting ou in the chair for 2 hours this morning. He reports his tailbone is sore. he continues to report his right leg hurts with pain 9/10 excepts when he gets a shooting pain into the hip joint then it is 12/10. Pt agian states he did a few of the exercises listed on the board in his room. He notes the only time he does not feel his right leg pain is when he is asleep. PM: pt declined to participate in session stating he was too tired and too sore. Pt encouraged but continued to decline. Objective: General Observation:He presented seated in chair with his feet down. The hematoma on R low back and R LE remains. Swelling to R thigh and leg remains. Pt noted with improved stability in standing without bracing. Mental Status: Alert and oriented as to person and place. Pleasant Vital Signs: monitored by nursing staff Bed Mobility/Transfers: Supine to sit: supervision only Sit to supine:CGAA for LEs . (pt requests assistance but this PT did not have to lift. Pt able to lift and bring LEs into bed) Sit to stand: supervision did not need cues during am session Stand to sit : supervision sis not need cues for hand placement this am session Ambulation for improved activity tolerance: Facilitated safe and correct performance of level surface ambulation covering a distance of 200 feet using use front wheeled walker with SBA. Did not report of any increased pain however pt did note fatigue in B wrists at 175 feet. Denied headache, chest pain, and lightheadedness throughout activity. Minimal verbal cueing provided for sequencing, directional changes, and posture.Pt with slow, cautious gait, excessive WB through BUE during R stance phase. Attempted to cue pt for reciprocal pattern however pt reported increased pain in RLE with reciprocal. With cueing pt able to demonstrate improved right knee flexion during swing phase. Stairs: manages therapeutic stairs, 4x3 with bilat rails, 2 6 steps with B rails SBA and cues for technique. ADLs: Able to stand and use urinal with SBA only, unilateral UE support to FWW and B LE braced against bed. Balance: Sitting static: Good Sitting dynamic: Good Static standing: Good Dynamic standing: fair THERA EX: One-on-one instruction on safe performance of bed level exercises to minimize pain report as follows: Gluteal sets, 10x Ankle Pumps 10x Quads sets, 5 sh x 5 SAQ: 10x1 heel slide 5x2 bridge 5x Assessment: Geovani was able to progress with distance of ambulation completing 200 feet with 3 stand rests . Pt declined sit rests. He continues with excessive WB through BUE. he is hesitant to attempt lessening WB through UE d/t potential increase in pain. He requires continued skilled PT intervention to progress strength, range of motion, and function postoperatively to facilitate return to home ultimately. Pt would benefit from OT assessment for LB dressing techniques and adaptive equipment assessment Plan of Care/Treatment Plan: 1-2x/day, 7 days/week x 1 week. Patient will highly benefit from skilled physical therapy services including functional mobility training, bed mobility/transfer training, gait and balance training, therapeutic exercises, therapeutic activity, caregiver/staff/family education and training 1x/day, 7 days/week x 1 week. Plan of care has been reviewed with the MANAGER PROGRAM MANAGEMENT providing the service under Physical Therapy direction. Initiate Physical Therapy intervention for strengthening, bed mobility, transfers, gait, stairs, balance training, use of assistive device. DISCHARGE RECOMMENDATIONS: [X] ? home with HHPT vs SNF if unable to meet goals TREATMENT CODE/TIME: 1st session 34484, [id number]/ [id number] 2nd session: Pt declined x 2 10 mins spent no charge
[2024-07-01 15:20] VITALS: BP 123/83; PULSE 82; RESP 17; TEMP 37.1; O2SAT 95
[2024-07-01 19:19] VITALS: BP 115/88; PULSE 77; RESP 20; TEMP 36.6; O2SAT 97
[2024-07-01] MEDS: Atorvastatin 40 MG TAB 80 MG PO (20:17)
[2024-07-01] MEDS: Cyclobenzaprine 10 MG TAB PO (20:17)
[2024-07-01] MEDS: Melatonin 3 MG TAB PO (20:18)
[2024-07-01] MEDS: Lidocaine Patch Removal 1 EACH TP (20:20)
[2024-07-02] MEDS: Acetaminophen 500 MG TAB 1000 MG PO ×2 (01:52→08:24)
[2024-07-02] MEDS: Gabapentin 300 MG CAP PO ×2 (06:27→14:28)
[2024-07-02] MEDS: Pantoprazole 40 MG TABCR PO (06:31)
[2024-07-02 07:07] VITALS: BP 157/98; PULSE 95; RESP 16; TEMP 36.7; O2SAT 98
[2024-07-02] MEDS: Citalopram 20 MG TAB PO (08:24)
[2024-07-02] MEDS: Topiramate 50 MG TAB 150 MG PO (08:24)
[2024-07-02] MEDS: Tamsulosin 0.4 MG CAPCR PO (08:24)
[2024-07-02 08:25] VITALS: PULSE 95
[2024-07-02] MEDS: Celecoxib 100 MG CAP 200 MG PO ×2 (08:25→20:06)
[2024-07-02] MEDS: Magnesium Oxide 400 MG TAB PO (08:25)
[2024-07-02] MEDS: Cyclobenzaprine 10 MG TAB PO ×2 (08:25→20:06)
[2024-07-02] MEDS: Metoprolol CR 50 MG TABCR PO (08:25)
[2024-07-02] MEDS: Thiamine 100 MG TAB PO (08:25)
[2024-07-02] MEDS: Digoxin 0.125 MG TAB PO (08:25)
[2024-07-02] MEDS: Enoxaparin 30 MG/0.3 ML SYR SC ×2 (08:26→20:05)
[2024-07-02] MEDS: Lidocaine 5% Patch 1 PATCH TP (08:26)
[2024-07-02] MEDS: Nicotine 14 MG/24 HR PATCH TD (08:27)
--- NOTE | 2024-07-02 11:40 | PT.INTREAT ---
PT Notes Visit Reasons: right hip fracture Physical Therapy Inpatient Treatment Note Date: 07/02/2024 Precautions: Fall. Standard. WBAT on the R LE with AD. Low endurance with LVEF of 35-40%, needs frequent rests. Subjective: Pt states he hasn't been sleeping more than 2 hours at a time. He reports at home he slept on his right side but now is unable to because of the pain. ( He was instructed in sidelying on left with pillow between legs as an alternative to allow him to get off his back). Pt asked for information to be written down of when he broke his hip, the date of his surgery and what type of repair, when he came to [facility] and when his appointment at [facility] [place] . (This information was provided) Objective: General Observation:He presented seated at EOB. The ecchymotic area on R low back and R LE remains but diminishing in color. Swelling to R thigh and leg minimal. Mental Status: Alert and oriented as to person and place. Pleasant, Vital Signs: monitored by nursing staff 1st session: Bed Mobility/Transfers: Supine to sit: supervision only Sit to supine:CGA for LEs . (pt requests assistance but this PT did not have to lift. Pt able to lift and bring LEs into bed) Sit to stand: supervision did not need cues during am session Stand to sit : supervision did not need cues for hand placement this am session Ambulation for improved activity tolerance: Facilitated safe and correct performance of level surface ambulation covering a distance of 75 feet x 2 using use front wheeled walker with SBA. Did report increased pain at knee and lateral thigh. Denied headache, chest pain, and lightheadedness throughout activity. Minimal verbal cueing provided for sequencing, directional changes, and posture.Pt with slow, cautious gait, excessive WB through BUE during R stance phase. Attempted to cue pt for reciprocal pattern however pt reported increased pain in RLE with reciprocal. With cueing pt able to demonstrate improved right knee flexion during swing phase. Stairs: manages therapeutic stairs, 4x3 with rail and cane CGA ( pt reported increased pain in right LE) ,and 2 6 steps with B rails SBA and initial cue for technique/sequencing. Functional balance dynamic within [place]: Able to stand and use urinal with SBA only without bracing and without UE support Balance: Sitting static: Good Sitting dynamic: Good Static standing: Good Dynamic standing: fair + with 1 UE support reaching item retrieval THERA EX: One-on-one instruction on safe performance of bed level exercises to minimize pain report as follows: Gluteal sets, 10x Ankle Pumps 10x Quads sets, 5 sec hold x 5 SAQ: 10x1 heel slide 5x2 bridge 5x Stand knee flexion x 10 reps at FWW Heel raises x 5 reps 2nd Session: functional mobility training with FWW SBA simulating household distances <25feet x 2 including small space FWW management, dynamic balance within [place] bending reaching with 1UE support, Side stepping in small spaces and reverse stepping. Transfers SBA increased time and bracing from surfaces 18 or less. 19 higher no bracing SBA. supine to sit CGA with increased time and cues to use momentum as he lowers trunk then lift legs. Assessment: Pt able to attempt and achieve 3 4 steps with ane and rail with CGA however increase pain reported by patient. He also noted sensation of Knee wobbling today while walking. Pt noted to be limiting WB through RLE at times of knee wobbling sensatin. He was instructed to advance the FWW then RLE , tighten his quad as he puts weight on his right leg then advance his left leg. Pt continues to rely heavily on BUE during dynamic tasks, i.e. transfers, stairs and ambulation. During PM session pt noted fatigue but agreeable to use the bathroom vs commode. Pt would benefit from coomode placement over toilet to raise toilet height. He requires continued skilled PT intervention to progress strength, range of motion, and function postoperatively to facilitate return to home ultimately. Pt would benefit from OT assessment for LB dressing techniques and adaptive equipment assessment Plan of Care/Treatment Plan: 1-2x/day, 7 days/week x 1 week. Patient will highly benefit from skilled physical therapy services including functional mobility training, bed mobility/transfer training, gait and balance training, therapeutic exercises, therapeutic activity, caregiver/staff/family education and training 1x/day, 7 days/week x 1 week. Plan of care has been reviewed with the CHECK CLERK providing the service under Physical Therapy direction. Initiate Physical Therapy intervention for strengthening, bed mobility, transfers, gait, stairs, balance training, use of assistive device. DISCHARGE RECOMMENDATIONS: [X] ? home with HHPT vs SNF if unable to meet goals TREATMENT CODE/TIME: 1st session 95384, [id number]/ [id number] 2nd session: [id number]/ 3:15pm-3:31pm
[2024-07-02 15:17] VITALS: BP 122/90; PULSE 100; RESP 16; TEMP 36.8; O2SAT 96
--- NOTE | 2024-07-02 16:08 | CMPROGNOTE_ITS ---
Date of service: 07/02/24 Time of Service: 16:08 Care Management Progress Note Progress Note Text Progress Note Text: Geovani was sitting up in bed at the time CM arrived. He was pleasant and willing to engage in conversation today. Per Geovani, PT has been going well but tired him out yesterday. CM discussed SNF recommendation, and with his permission, referrals to the [facility] and . CFL were sent. CM coordinated the completion of advanced directives at his request; copies were made and distributed as appropriate. Discharge Potential Discharge Needs: PCP F/U Appt and Surgical F/U Appt Anticipated Barriers to Discharge: Bed availability Patient/Family Education Needs: Review discharge instructions, discuss Ask Me Three Transportation: [facility] Plan: Geovani was agreeable to SNF, and referrals were sent. He will follow up with [facility] [place] [place] 07/07/24, and his community providers. Anticipate he will go via [facility] vs. private vehicle with a friend. CM will follow. Social Determinants of Health Screening Social Determinants of health last assessed in clinic: 07/02/24 Will the Patient Participate in the Screening?: Yes Do you worry about having a steady place to live?: no Problems where you live: no known problems In the past 12 months, have you had to go without electric, gas, oil or water in your home?: no 1. Within the past 12 months, we worried whether our food would run out before we got money to buy more.: Sometimes true 2. Within the past 12 months, the food we bought just didn't last and we didn't have money to get more.: Never true Has lack of transportation kept you from medical appointments or from doing things needed for daily living?: yes Has anyone in your life made you feel unsafe or unsupported?: no How hard is it for you to pay for the very basics like food, housing, medical care, and heating? Would you say it is:: Very hard Do you want help finding or keeping work or a job?: I do not need or want help If for any reason you need help with day-to-day activities such as bathing, preparing meals, shopping, managing finances, etc., do you get the help you need?: I could use a little more help How often do you feel lonely or isolated from those around you?: Rarely Do you speak a language other than Japanese at home?: No Does the patient want assistance with any of the above?: Yes Health Related Social Needs Health related social needs: food insecurity (Z59.41), transportation insecurity (Z59.82), problems related to housing/economic circumstances (Z59.89), problems with daily activities (Z73.9) and feeling lonely/isolated (Z60.8) Health related social needs details: 19 Stairs to get into house at home. lives alone in apartment, on Social security, friends have meals a couple times a week, uses [facility] for transportation, Would benefit from meals on wheels, pt would prefer not to have to move due to stairs and cost of apartment
[2024-07-02 19:41] VITALS: BP 155/101; PULSE 87; RESP 18; TEMP 37.2; O2SAT 96
[2024-07-02] MEDS: Sennosides/Docusate Sodium TAB 2 TAB PO (20:05)
[2024-07-02] MEDS: Melatonin 3 MG TAB PO (20:06)
[2024-07-02] MEDS: Atorvastatin 40 MG TAB 80 MG PO (20:06)
[2024-07-02] MEDS: HYDROmorphone 2 MG TAB PO (20:07)
[2024-07-02 20:34] VITALS: BP 142/96; PULSE 86
[2024-07-02] MEDS: diphenhydrAMINE /ZINC ACET CR 30 GM TUBE TP (23:05)
[2024-07-03] MEDS: Lidocaine Patch Removal 1 EACH TP (00:19)
[2024-07-03] MEDS: Gabapentin 300 MG CAP PO ×2 (00:57→08:43)
[2024-07-03] MEDS: HYDROmorphone 2 MG TAB PO ×2 (00:59→05:36)
[2024-07-03] MEDS: Acetaminophen 500 MG TAB 1000 MG PO ×2 (01:00→08:44)
[2024-07-03] MEDS: Cyclobenzaprine 10 MG TAB PO (05:36)
[2024-07-03 06:54] LABS: Anion Gap 10.8 mmol/L (3-11); BUN 26 mg/dL (7-18); CO2 22.2 mmol/L (21.0-32.0); CREATININE 1.4 mg/dL (0.70-1.30); Calcium 9.2 mg/dL (8.5-10.1); Chloride 107 mmol/L (98-107); Estimated GFR 54.41 (mL/min/1.73m2); Glucose 173 mg/dL (74-106); Potassium 4.1 mmol/L (3.5-5.1); Sodium 140 mmol/L (136-145)
[2024-07-03 07:17] VITALS: BP 133/86; PULSE 91; RESP 15; TEMP 36.4; O2SAT 96
[2024-07-03 08:43] VITALS: PULSE 91
[2024-07-03] MEDS: Digoxin 0.125 MG TAB PO (08:43)
[2024-07-03] MEDS: Topiramate 50 MG TAB 150 MG PO (08:43)
[2024-07-03] MEDS: Thiamine 100 MG TAB PO (08:43)
[2024-07-03] MEDS: Metoprolol CR 50 MG TABCR PO (08:43)
[2024-07-03] MEDS: Tamsulosin 0.4 MG CAPCR PO (08:43)
[2024-07-03] MEDS: Celecoxib 100 MG CAP 200 MG PO (08:43)
[2024-07-03] MEDS: Citalopram 20 MG TAB PO (08:44)
[2024-07-03] MEDS: Magnesium Oxide 400 MG TAB PO (08:44)
[2024-07-03] MEDS: Nicotine 14 MG/24 HR PATCH TD (08:44)
[2024-07-03] MEDS: Ferrous Gluconate 324 MG TAB PO (08:44)
[2024-07-03] MEDS: Pantoprazole 40 MG TABCR PO (08:44)
[2024-07-03] MEDS: Enoxaparin 30 MG/0.3 ML SYR SC (08:45)
[2024-07-03] MEDS: Lidocaine 5% Patch 1 PATCH TP (08:45)
--- NOTE | 2024-07-03 10:43 | DSE_ITS ---
Date of service: 07/03/24 Time of Service: 10:43 DS: Diagnosis Discharge Diagnosis (1) Fracture, intertrochanteric, right femur: Status: Acute (2) Heart failure with reduced ejection fraction: Status: Acute (3) Candidal UTI (urinary tract infection): Status: Acute (4) Hyponatremia: Status: Resolved (5) Anemia due to blood loss: Status: Acute (6) Hematoma of right thigh: Status: Acute (7) JOS (acute kidney injury): (8) Acute pulmonary embolus: Status: Acute (9) Paroxysmal A-fib: Status: Acute (10) Nicotine dependence: Status: Acute (11) Deep vein thrombosis: Status: Chronic (12) Protein malnutrition: Status: Acute (13) AAA (abdominal aortic aneurysm): Status: Acute (14) Essential hypertension: Status: Acute (15) Stage II pressure ulcer of sacral region: Status: Acute (16) COPD (chronic obstructive pulmonary disease): Status: Chronic Discharge Plan Disposition Patient Disposition: [facility] Facility([facility]) Condition: Improving Discharge Details Reason For Visit: right hip fracture Admit Date/Time: 06/26/24 15:10 Admit Provider: Renzo Woods Attending Provider: Renzo Woods Primary Care Provider: Sherri Guzman V Hospital Course Hospital Course: This 69 yo male patient with a past medical history of nicotine dependence, daily ETOH, COPD, HFrEF, atrial fibrillation on metoprolol but not on anticoagulant,chronic opioid use returned to [facility] for swing bed one level of [place] [facility] [place]24 after initial transfer on 06/14/24 for repair of right hip intratrochanteric fracture sustained during mechanical fall at home. Cephalomedullary nail procedure completed on 06/16/24 with subsequent ICU stay d/t refractory hypotension resolving with vasopressor infusion, PE -RLL, mid and lower segmental emboli, DVT, exacerbation of HFrEF w LVEF 35-40%, JOS and post-op anemia d/t acute blood loss, lydia funguria treated with fluconazole. The patient was treated with furosemide and aldactone which were stopped prior to discharge from [facility] d/t overdiuresis on the day of transfer. On arrival the patient denied chills, fevers, headache, chest pain, SOB, cough, nausea, vomiting diarrhea or dysuria but reported sacral pain; stage II 1cm X1cm sacral decubitus assessed beneath the mepilex border. The patient declined CPR and intubation. Pain management achieved while working with physical therapy with scheduled acetaminophen and celecoxib, and PRN hydromorphone. The patient will be discharged on LMWH BID until 07/16/24 then will need Eliquis 5 mg oral BID on 07/17/24 as per discussion with [facility]; this will need to be ordered by the outpatient provider. On the day of discharge,the patient was hemodynamically stable, afebrile with stable H&H and Cr at 1.4 close to baseline. The patient will be discharged to a SNF with follow-up with outpatient provider within 7 days of discharge. Recommendation for outpatient provider f/u: Eliquis initiation on 07/17/24 [facility] f/u with ortho on 07/07/24 Cardiology referral for GDMT in HFrEF AAA- outpatient surveillance Discussed with Dr. Guillaume Calumet Meds and New Rx's Prescriptions: New celecoxib [Celebrex] 100 mg Capsule 200 mg PO BID Qty: 30 0RF Rx Instructions: Re-evaluate need as per PCP for refill acetaminophen 500 mg Tablet 1,000 mg PO Q8H Qty: 30 0RF hydromorphone 2 mg Tablet 2 mg PO Q6H PRNQty: 20 0RF Rx Instructions: Refill as per outpatient provider- The patient was on chronic Rx for hydrocodone-APAP 10/325 mg (#112 tabs for 28 days supply) that was switched to hydromorphone at [facility] Banophen Anti-Itch 2-0.1 % Cream 1 applic topical BID PRN PRNQty: 28 0RF docusate sodium [Colace] 100 mg Capsule 100 mg PO DAILY PRN PRNQty: 30 0RF enoxaparin 30 mg/0.3 mL Syringe 30 mg subcut Q12H Qty: 8.1 0RF Rx Instructions: Until Jul 16 2024 then stop and take Eliquis 5 mg oral BID starting on Jul 17 2024 AM Continued gabapentin 300 mg capsule 300 mg PO TID Patient Comments: 08/23/23 renal dosing per [facility] d/c RH thiamine HCl (vitamin B1) 100 mg tablet 100 mg PO DAILY Patient Comments: 08/23/23 per [facility] d/c summary RH tamsulosin 0.4 mg capsule 0.4 mg PO DAILY ferrous gluconate 324 mg (37.5 mg iron) tablet 324 mg PO Q48H metoprolol succinate 25 mg tablet extended release 24 hr 50 mg PO DAILY magnesium oxide 400 mg magnesium tablet 400 mg PO BID cyclobenzaprine 10 mg Tablet 10 mg PO TID PRN PRN Patient Comments: [facility] citalopram 20 mg Tablet 20 mg PO QAM pantoprazole 40 mg Tablet,Delayed Release (Dr/Ec) 40 mg PO DAILY topiramate 50 mg Tablet 150 mg PO DAILY polyethylene glycol 3350 17 gram Powder In Packet 17 g PO DAILY PRN PRN (Reason: Constipation) Qty: 0 0RF atorvastatin [Lipitor] 80 mg tablet 80 mg PO QPM digoxin [Digitek] 125 mcg (0.125 mg) tablet 125 mcg PO DAILY albuterol sulfate 90 mcg/actuation HFA aerosol inhaler 2 inh inhalation Q4H PRN PRN lidocaine 5 % adhesive patch,medicated See Rx Instructions .ROUTE .COMPLEX Rx Instructions: leave on most painful area for up to 12 hrs multivitamin Tablet 1 tab PO DAILY melatonin 3 mg tablet 6 mg PO HS PRN PRN nicotine 14 mg/24 hr patch 24 hour 1 patch transdermal DAILY sennosides-docusate sodium [Senna with Docusate Sodium] 8.6-50 mg tablet 2 tab-cap PO BID Discontinued acetaminophen [Tylenol] 325 mg tablet 975 mg PO Q8H enoxaparin 30 mg/0.3 mL syringe 30 mg subcut Q12H Rx Instructions: for 20 days per [facility] dc paperwork 06/26/24 fluconazole 100 mg tablet 200 mg PO DAILY Rx Instructions: start 06/16/24 end: 06/30/24 hydromorphone 2 mg tablet 2 - 4 mg PO Q4H PRN Rx Instructions: 2 mg for mild/moderate pain (6/10 or less), 4 mg for severe (7/10 or more) Discharge Instructions Referrals: Saul Miller MD [ NON-[facility] STAFF PHYSICIAN] - 07/07/24 7:45 am (7:45 am XRAY and 8:30 Hospital Appointment) Radha Melendez MD [ [facility] STAFF PHYSICIAN] - (New HFrEF LVEF 35-40% on Toprol XL ) Activity:: Activity as Tolerated Equipment/Supplies:: Walker Diet:: heart healthy DS: Summary Time Spent with Patient providing and/or coordinating discharge services: Greater than 30 minutes Status at Discharge Functional status at discharge: uses cane/walker Overall status at discharge: patient is progressing back to baseline Mental Status: mental status grossly normal Speech and Movement: speech and movement normal Mood: congruent mood Affect: normal affect Quality:SDOH Health Related Social Needs: Health related social needs food insecurity (Z59.41), transportation insecurity (Z59.82), problems related to housing/economic circumstances (Z59.89), problems with daily activities (Z73.9), feeling lonely/isolated (Z60.8) Health related social needs details 19 Stairs to get i nto house at home. lives alone in apartment, on Social security, friends have meals a couple times a week, uses [facility] for transportation, Would benefit from meals on wheels, pt would prefer not to have to move due to stairs and cost of apartment Health related social needs details: 19 Stairs to get into house at home. lives alone in apartment, on Social security, friends have meals a couple times a week, uses [facility] for transportation, Would benefit from meals on wheels, pt would prefer not to have to move due to stairs and cost of apartment Exam Narrative Exam Narrative: 69 yo male appearing older than age w/o acute distress , AOx4, heart RRR, lungs CTAB, abdomen soft, non-tender, non-distended, multiple bruising sites improving, moves all 4 ext, RLE surgical incision sites DCI, optiview to sacrum. Psych Mental Status: mental status grossly normal Speech and Movement: speech and movement normal Mood: congruent mood Affect: normal affect DS: Data Vitals/I&O Vitals and I&O: Vital Signs Temperature 36.4 C L 07/03/24 07:17 Temperature Source Temporal Artery Scan 07/03/24 07:17 Pulse 91 H 07/03/24 08:43 Pulse Rhythm Irregular 06/26/24 15:53 Respiratory Rate 15 07/03/24 07:17 Respiratory Effort Normal 06/26/24 15:53 Respiratory Depth Normal 06/26/24 15:53 Respiratory Pattern Normal 06/26/24 15:53 Blood Pressure 133/86 07/03/24 07:17 Blood Pressure Mean 101 07/03/24 07:17 Pulse Oximetry 96 07/03/24 07:17 Oxygen Delivery Method Room Air 07/03/24 07:17 Oxygen Flow Rate 0 05/01/25 07:17 Pain Level 8 07/03/24 08:44 Comment RN notified 07/02/24 15:17 Intake & Output 07/02/24 07/02/24 07/03/24 11:59 23:59 11:59 Intake Total 420 / 420 Output Total 1575 / 2765 1190 / 2765 865 / 865 Balance -1155 / -2345 -1190 / -2345 -865 / -865 Intake: Oral 420 / 420 Output: Urine 1575 / 2765 1190 / 2765 865 / 865 Other: Urine Color Yellow Pale Pale Yellow Urine Appearance Clear Clear Clear Urine Odor None Normal Normal Comment 300 in urinal when entering room Patient used urinal at the bedside with a walker and stand by assistance. Patient used urinal ind. with a walker and stand by assistance. Data Completed and Pending Labs on day of discharge: Labs from last 24 hours 07/03/24 06:25: Sodium 140, Potassium 4.1, Chloride 107, Carbon Dioxide 22.2, Anion Gap 10.8, BUN 26 H, Creatinine 1.4 H, Est GFR (CKD-EPI 2020) 54.41, Glucose 173 H, Calcium 9.2 PFSH All Active Problems (Updated 06/26/24 @ 18:51 by Renee Liriano APRN) Stage II pressure ulcer of sacral region (Acute) Essential hypertension (Acute) AAA (abdominal aortic aneurysm) (Acute) Protein malnutrition (Acute) Deep vein thrombosis (Chronic) Nicotine dependence (Acute) Paroxysmal A-fib (Acute) Acute pulmonary embolus (Acute) Hematoma of right thigh (Acute) Candidal UTI (urinary tract infection) (Acute) Fracture, intertrochanteric, right femur (Acute) Atrial fibrillation with rapid ventricular response (Acute) Acute urinary retention (Acute) Cerebral cortical contusion-no coma (Acute) Fall (Acute) Closed fracture of right hip (Acute) Recurrent epistaxis (Acute) Chronic kidney disease (Chronic) Heart failure with reduced ejection fraction (Acute) Hepatitis C (Chronic) Per H&P: s/p tx. . He had an abc CT earlier this year which showed a normal liver. Normal anion gap metabolic acidosis (Acute) High anion gap metabolic acidosis (Acute) Lactic acidosis (Acute) Coagulopathy (Acute) Leukocytosis (Acute) Hyperphosphatemia (Acute) Hypocalcemia (Acute) Encephalopathy (Acute) Shock circulatory (Acute) Hyperkalemia (Acute) Acute renal failure (Acute) Acute liver failure (Acute) HFrEF (heart failure with reduced ejection fraction) (Acute) Anemia due to blood loss (Acute) Elevated liver enzymes (Acute) Acute posterior epistaxis (Acute) Acute anterior epistaxis (Acute) COPD (chronic obstructive pulmonary disease) (Chronic) Closed right clavicular fracture (Acute ~11/2021) Right shoulder pain (Acute) CHF (congestive heart failure) (Chronic) No-show for appointment (Acute) Left leg weakness (Acute) MCL sprain of right knee (Acute) Alcohol abuse (Chronic) Chest discomfort (Chronic) Acute on chronic diastolic heart failure (Acute) Bilateral pleural effusion (Acute) Falls (Acute) Pulmonary nodule (Acute) Acute respiratory failure with hypoxia (Acute) Pneumonia (Acute) Acute respiratory distress (Acute) Femur fracture, right (Acute) Fracture, rib (Acute) A-fib (Chronic) Laceration of digital nerve of left thumb (Acute) Gastritis and duodenitis (Acute) Medical History JOS (acute kidney injury) Leg edema Cardiogenic shock Tobacco use Back pain Obesity Chronic pain Asthma Adjustment disorder Pain in left wrist Right hip pain Insomnia Medication monitoring encounter History of depression Opioid withdrawal Cataract Blurred vision Patella-femoral syndrome Trochanteric bursitis Knee pain, right Rib pain Hx of viral pneumonia Lumbar radiculopathy Cocaine abuse Lightheadedness Abdominal pain in male Positive urine drug screen Dyspnea on exertion Voiding dysfunction Clavicle pain Arthritis Neck fracture Per pt. states he broke his nevk 5-6 years ago. 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) As treatment for proximal humerus fx (DOI: 11/11/2021) History of surgery on wrist History of cataract surgery History of cataract surgery History of hand surgery Social History Smoking/Tobacco Use Status: Current every day Tobacco Type: cigarettes Smoking risk assessment performed?: Yes Alcohol Intake: current Alcohol Intake frequency: a few times a week Drug use: Never Substance use type: does not use and unknown Housing: apartment Current gender identity: male Do you feel safe at home: Yes Do you feel safe in your relationship?: Yes Additional Social history: lives alone Time Spent with Patient Time Spent with Patient: 70-84 minutes4 Time was spent: preparing to see the patient(eg.review tests), obtaining and/or reviewing separately otained hiistory, ordering medications,tests, procedures, referring, communicating with other health anesthesiologist and critical care, indepentently interpreting results, counseling the patient and care coordination
--- NOTE | 2024-07-03 11:48 | PDOC.CMDIS ---
Date of service: 07/03/24 Time of Service: 11:48 LACE Index Scoring Tool Questions: Length of Stay (in days): 7 - 13 Was the patient admitted via the E.D.?: No Comorbidities: Congestive Heart Failure and Liver or Renal Disease E.D. Visits: 1 Answers: Total Score: 11 Risk of Readmission: High Risk Care Management Discharge Plan Reason for Hospitalization: Admitted to [facility] for continued therapy for Right Hip Fracture Discharge Plan: Geovani will discharge to [facility] at 1:15. He will follow up with [facility] [place] on 07/07/24, his community providers, and continue per his plan of care. He will go via [facility]. Patient/Family Education Needs: Review discharge instructions, activity, limitations and discuss Ask Me Three. Services Needed at Discharge: [facility]dc Facility ([facility]) [facility] Health related social needs details: 19 Stairs to get into house at home. lives alone in apartment, on Social security, friends have meals a couple times a week, uses [facility] for transportation, Would benefit from meals on wheels, pt would prefer not to have to move due to stairs and cost of apartment
== END 2024-07-03 13:14 | disposition skilled nursing facility (03) | DRG 559 ==
PROVIDERS: Nurse Practitioner Acute Care; Admitting Provider Family Medicine; PCP Family Medicine; Responsible Provider Nurse Practitioner Acute Care; Visit Provider Family Medicine
DX: S72.141D Displaced intertrochanteric fracture of right femur, subsequent encounter for closed fracture with routine healing; I26.99 Other pulmonary embolism without acute cor pulmonale; B37.49 Other urogenital candidiasis; E87.1 Hypo-osmolality and hyponatremia; N17.9 Acute kidney failure, unspecified; E46 Unspecified protein-calorie malnutrition; D62 Acute posthemorrhagic anemia; I82.552 Chronic embolism and thrombosis of left peroneal vein; I50.42 Chronic combined systolic (congestive) and diastolic (congestive) heart failure; I48.0 Paroxysmal atrial fibrillation; F17.210 Nicotine dependence, cigarettes, uncomplicated; Z68.21 Body mass index [BMI] 21.0-21.9, adult; I71.40 Abdominal aortic aneurysm, without rupture, unspecified; I11.0 Hypertensive heart disease with heart failure; L89.152 Pressure ulcer of sacral region, stage 2; J44.9 Chronic obstructive pulmonary disease, unspecified; W01.0XXD Fall on same level from slipping, tripping and stumbling without subsequent striking against object, subsequent encounter; F10.10 Alcohol abuse, uncomplicated; F11.90 Opioid use, unspecified, uncomplicated
CPT/HCPCS: 00123; 36415; 80048; 96372; 97110; 97162; 97530; 99306; 99316; 83735; 85025; 99223; 99239; J1650; J1885; J3490

== ENCOUNTER 2024-08-23 09:17 | Emergency (ER) | payer MEDICARE, MEDICAID, SELFPAY ==
[2024-08-23 09:23] VITALS: BP 127/84; PULSE 77; RESP 16; TEMP 36.4; O2SAT 100
--- NOTE | 2024-08-23 10:02 | NUR.NOTE ---
Access [place] chart to get the medication list. Nursing Note:
--- NOTE | 2024-08-23 10:07 | W.ED.GENAD ---
Discharge Plan Disposition Patient Disposition: Home Condition: Stable Discharge Details Clinical Impression: Cellulitis of right lower leg, Urinary tract infection Primary Care Provider: Sherri Guzman V ED Provider: Kael Alejandro Home Meds and New Rx's Prescriptions: New cephalexin 500 mg capsule 500 mg PO QID 10 Days Qty: 40 0RF mupirocin [Centany] 2 % ointment 1 applic topical TID Qty: 15 0RF Continued gabapentin 300 mg capsule 300 mg PO TID Patient Comments: 08/23/23 renal dosing per [facility] d/c RH, 06/07/24 300mg TID qty 270 per [facility] thiamine HCl (vitamin B1) 100 mg tablet 100 mg PO DAILY Patient Comments: 08/23/23 per [facility] d/c summary tamsulosin 0.4 mg capsule 0.4 mg PO DAILY ferrous gluconate 324 mg (37.5 mg iron) tablet 324 mg PO Q48H Patient Comments: Prescribed once daily Per [facility] metoprolol succinate 25 mg tablet extended release 24 hr 50 mg PO DAILY magnesium oxide 400 mg magnesium tablet 400 mg PO BID Patient Comments: Per [facility] cyclobenzaprine 10 mg Tablet 10 mg PO TID PRN PRN Patient Comments: Per [facility] citalopram 20 mg Tablet 20 mg PO QAM pantoprazole 40 mg Tablet,Delayed Release (Dr/Ec) 40 mg PO DAILY Patient Comments: Per [facility] 05/18/24 qty 90 topiramate 50 mg Tablet 150 mg PO DAILY Patient Comments: Per [facility] polyethylene glycol 3350 17 gram Powder In Packet 17 g PO DAILY PRN PRN (Reason: Constipation) Qty: 0 0RF atorvastatin [Lipitor] 80 mg tablet 80 mg PO QPM digoxin [Digitek] 125 mcg (0.125 mg) tablet 125 mcg PO DAILY albuterol sulfate 90 mcg/actuation HFA aerosol inhaler 2 inh inhalation Q4H PRN PRN lidocaine 5 % adhesive patch,medicated See Rx Instructions .ROUTE .COMPLEX Patient Comments: Was taking at [facility] in June, no current Rx Rx Instructions: leave on most painful area for up to 12 hrs multivitamin Tablet 1 tab PO DAILY melatonin 3 mg tablet 6 mg PO HS PRN PRN nicotine 14 mg/24 hr patch 24 hour 1 patch transdermal DAILY sennosides-docusate sodium [Senna with Docusate Sodium] 8.6-50 mg tablet 2 tab-cap PO BID celecoxib [Celebrex] 100 mg Capsule 200 mg PO BID Qty: 30 0RF Rx Instructions: Re-evaluate need as per PCP for refill hydromorphone 2 mg Tablet 2 mg PO Q6H PRNQty: 20 0RF Rx Instructions: Refill as per outpatient provider- The patient was on chronic Rx for hydrocodone-APAP 10/325 mg (#112 tabs for 28 days supply) that was switched to hydromorphone at [facility] Banophen Anti-Itch 2-0.1 % Cream 1 applic topical BID PRN PRNQty: 28 0RF enoxaparin 30 mg/0.3 mL Syringe 30 mg subcut Q12H Qty: 8.1 0RF Rx Instructions: Until Jul 16 2024 then stop and take Eliquis 5 mg oral BID starting on Jul 17 2024 AM acetaminophen 500 mg Tablet 1,000 mg PO Q6H PRN hydrocodone-acetaminophen 10-325 mg tablet 1 tab PO Q6H PRN (Reason: pain) Patient Comments: Per Turner marcel [facility] zolpidem 10 mg tablet 10 mg PO QHS PRN (Reason: insomnia) Patient Comments: Per Devon marcel [facility], routine medication, last filled 06/11/23 Discharge Instructions Instructions: Cephalexin, Mupirocin, Cellulitis (Skin Infection), Adult ED, Urinary Tract Infection, Adult ED Additional Instructions: You were seen in the emergency department for your right lower leg cellulitis, this is a soft tissue infection and needs to be treated with antibiotics, we did provide you with some IV antibiotics that last for the first 24 hours here in the emergency department. I have sent further prescription for 10 days of oral cephalexin and antibiotic that covers most forms of cellulitis. I have also sent in a topical prescription strength antibiotic to place on any of the ulcerations of your right lower leg. The CT shows you have some narrowing of the vessels of your leg likely in the setting of peripheral artery disease, this can cause excess fluid retention as well as your marker of heart failure is significantly elevated today without any signs of pulmonary edema on chest x-ray. You do have a urinary tract infection and the oral cephalexin we are using to treat your cellulitis will also cover this. Please return for any significant increase in shortness of breath, fever, spreading redness despite treatment, nausea, red streaking up your leg, chest pain or any other emergent concerns. Please call Sherri Guzman's office and see if they can refer you to the wound care clinic at [facility] in [facility]. Referrals: Sherri Guzman MD [Primary Care Provider, Medicine] HPI General Date/Time Provider Initiated Documentation: 08/23/24 09:20. HPI Narrative: 69 year-old male presents to ED today by POV/ambulating with cane with a chief complaint of R leg warmth, redness, weeping and swelling with onset for about the past week. Quality described as painful to touch, notes some yellow crusts on some lesions, no radiation to deep ulcers, medial thigh pain, chest pain, shortness of breath, red streaking above the reddened distal R leg, fever, nausea/vomiting, endorses dysuria- wants to be checked for UTI as well. Severity is described as moderate. Palliating factors include nothing specific attempted- OTC antibiotic creams without change. Provoking factors include nothing specific. Patient not anticoagulated. Related Data Home Medications ?Medication ?Instructions ?Recorded ?Confirmed citalopram 20 mg tablet 20 mg PO QAM 11/23/21 08/23/24 cyclobenzaprine 10 mg tablet 10 mg PO TID PRN PRN 11/23/21 08/23/24 pantoprazole 40 mg tablet,delayed 40 mg PO DAILY 11/23/21 08/23/24 release topiramate 50 mg tablet 150 mg PO DAILY 11/23/21 08/23/24 polyethylene glycol 3350 17 gram 17 g PO DAILY PRN PRN Constipation 11/29/21 08/23/24 oral powder packet #0 ea gabapentin 300 mg capsule 300 mg PO TID 08/23/23 08/23/24 tamsulosin 0.4 mg capsule 0.4 mg PO DAILY 08/23/23 08/23/24 thiamine HCl (vitamin B1) 100 mg 100 mg PO DAILY 08/23/23 08/23/24 tablet ferrous gluconate 324 mg (37.5 mg 324 mg PO Q48H 11/21/23 08/23/24 iron) tablet magnesium oxide 400 mg PO BID 11/21/23 08/23/24 metoprolol succinate 25 mg 50 mg PO DAILY 11/21/23 08/23/24 tablet,extended release 24 hr albuterol sulfate 90 mcg/actuation 2 inh inhalation Q4H PRN PRN 06/26/24 08/23/24 aerosol inhaler atorvastatin 80 mg tablet (Lipitor) 80 mg PO QPM 06/26/24 08/23/24 digoxin 125 mcg (0.125 mg) tablet 125 mcg PO DAILY 06/26/24 08/23/24 (Digitek) lidocaine 5 % topical patch See Rx Instructions topical 06/26/24 08/23/24 .COMPLEX melatonin 3 mg tablet 6 mg PO HS PRN PRN 06/26/24 08/23/24 multivitamin 1 tab PO DAILY 06/26/24 08/23/24 nicotine 14 mg/24 hr daily 1 patch transdermal DAILY 06/26/24 08/23/24 transdermal patch sennosides 8.6 mg-docusate sodium 2 tab-cap PO BID 06/26/24 08/23/24 50 mg tablet (Senna with Docusate Sodium) celecoxib 100 mg capsule (Celebrex) 200 mg (2 x 100 mg) PO BID #30 caps 07/03/24 08/23/24 diphenhydramine-zinc acetate 2 1 applic topical BID PRN PRN #28 07/03/24 08/23/24 %-0.1 % topical cream (Banophen grams Anti-Itch) enoxaparin 30 mg/0.3 mL 30 mg (0.3 mL) subcut Q12H #8.1 mL 07/03/24 08/23/24 subcutaneous syringe hydromorphone 2 mg tablet 2 mg PO Q6H PRN #20 tabs 07/03/24 08/23/24 acetaminophen 500 mg tablet 1,000 mg PO Q6H PRN 08/23/24 08/23/24 cephalexin 500 mg capsule 500 mg PO QID 10 days #40 caps 08/23/24 hydrocodone 10 mg-acetaminophen 1 tab PO Q6H PRN pain 08/23/24 08/23/24 325 mg tablet mupirocin 2 % topical ointment 1 applic topical TID #15 grams 08/23/24 (Centany) zolpidem 10 mg tablet 10 mg PO QHS PRN insomnia 08/23/24 08/23/24 Previous Rx's ?Medication ?Instructions ?Recorded polyethylene glycol 3350 17 gram 17 g PO DAILY PRN PRN Constipation 11/29/21 oral powder packet #0 ea celecoxib 100 mg capsule (Celebrex) 200 mg (2 x 100 mg) PO BID #30 caps 07/03/24 diphenhydramine-zinc acetate 2 1 applic topical BID PRN PRN #28 07/03/24 %-0.1 % topical cream (Banophen grams Anti-Itch) enoxaparin 30 mg/0.3 mL 30 mg (0.3 mL) subcut Q12H #8.1 mL 07/03/24 subcutaneous syringe hydromorphone 2 mg tablet 2 mg PO Q6H PRN #20 tabs 07/03/24 cephalexin 500 mg capsule 500 mg PO QID 10 days #40 caps 08/23/24 mupirocin 2 % topical ointment 1 applic topical TID #15 grams 08/23/24 (Centany) Allergies Allergy/AdvReac Type Severity Reaction Status Date / Time amlodipine Allergy Unknown Other (See Verified 08/23/24 09:30 Comment) trazodone Allergy Unknown Other (See Verified 08/23/24 09:30 Comment) budesonide (From Pulmicort) Allergy Other (See Verified 08/23/24 09:30 Comment) benazepril AdvReac Intermediate Swelling/Ed Verified 08/23/24 09:30 nica diazepam AdvReac Intermediate Agitation Verified 08/23/24 09:30 clonidine AdvReac Mild Dry mouth Verified 08/23/24 09:30 lisinopril AdvReac Mild Cough Verified 08/23/24 09:30 losartan AdvReac Mild Cough Verified 08/23/24 09:30 tramadol AdvReac Nauseous Verified 08/23/24 09:30 General Stated Complaint: Cellulitis DAYSI: 3 Review of Systems All systems reviewed & are unremarkable except as noted in HPI and below Exam Narrative Exam Narrative: GENERAL APPEARANCE: Cachectic, non-toxic, awake and alert, atraumatic, no acute distress. SKIN: Warm, pink, dry, right lower extremity swelling, erythema, warmth to touch and tenderness diffusely below the knee, no medial thigh tenderness, no Homans' sign, pedal pulses dopplerable, left foot has very mild edema, no diffuse swelling HEAD: Normocephalic, atraumatic, normal hair distribution for gender/age. EYES: Normal conjunctiva, no exudates on lids/lashes. ENT: Nares patent, no circumoral cyanosis, no facial swelling NECK: Supple, trachea midline, painless cervical ROM. LUNGS/CHEST: Lungs CTA bilaterally- no rhonchi/rales/wheezes diffusely, non-labored respirations, normal A/P diameter, symmetrical expansion, no chest wall deformity HEART (CV/PV): Regular rate and rhythm without murmur, 3+ peripheral edema below right knee, 1+ peripheral edema in the left dorsal foot, no JVD. ABDOMEN: Soft, non-distended, no guarding, no tenderness. MSK: Normal ROM, no deformity to bilateral UEs or LEs, moving all extremities without weakness, no cyanosis, spine midline without tenderness, normal curvature. NEURO: Mental Status AAOx4 - alert to person, place, time, events No facial droop, no forehead involvement. Motor: No focal weakness - strength 5/5 in bilateral UEs and LEs, proximal and distal, symmetric. Sensory: sensation intact to light touch globally. Gait normal: patient ambulated without ataxia into ED room with his cane at baseline PSYCH: euthymic, cooperative, pleasant, appropriate speech Course Vital Signs Vital signs: Vital Signs Temperature 36.4 C 08/23/24 09:23 Pulse 77 08/23/24 09:23 Respiratory Rate 16 08/23/24 09:23 Blood Pressure 127/84 08/23/24 09:23 Pulse Oximetry 100 08/23/24 09:23 Temperature 36.4 C 08/23/24 09:23 Pulse 77 08/23/24 09:23 Respiratory Rate 16 08/23/24 09:23 Blood Pressure 127/84 08/23/24 09:23 Pulse Oximetry 100 08/23/24 09:23 Lab/Test Results Lab/Test Results: 08/23/24 09:41 Blood Blood Culture - Pending 08/23/24 09:41 Blood Blood Culture - Pending Medical Decision Making This dictation utilizes [id number] dictation software and may contain unedited grammatical errors. 69 year-old male presents to ED today by POV/ambulating with cane with a chief complaint of R leg warmth, redness, weeping and swelling with onset for about the past week. Quality described as painful to touch, notes some yellow crusts on some lesions, no radiation to deep ulcers, medial thigh pain, chest pain, shortness of breath, red streaking above the reddened distal R leg, fever, nausea/vomiting, endorses dysuria- wants to be checked for UTI as well. Severity is described as moderate. Palliating factors include nothing specific attempted- OTC antibiotic creams without change. Provoking factors include nothing specific. Patients' medical history: History of of edema, asthma, substance use, upper GI bleeding, hypertension, AAA, paroxysmal A-fib with history of PE, history of hepatitis C, heart failure with reduced ejection fraction, acute liver and renal failure, COPD. Family and social history: [ ]. Pertinent exam findings / vital signs include right lower extremity is edematous 3+, red and warm to touch below the knee through the foot, Doppler did obtain pedal pulses, he has 1+ pedal edema below the ankle most focal in the left lower extremity, no medial thigh tenderness, Homans negative, some scant ulcers of chronic venous insufficiency in the right lower extremity with some yellow crusting most noted at the medial ankle, benign cardiopulmonary exam without rales at bases, no abdominal tenderness, neuro intact. Differential / pathologies of concern include cellulitis, peripheral artery disease, CVI, CHF. Diagnostic studies of: - CBC, CMP, lactate, troponin, CRP, BNP, UA, blood culture, CTA aorta with runoffs, XR chest. - CBC shows no leukocytosis, shows a chronic anemia 12.8, 1% immature granulocytes - Lactate negative - CMP shows no concerning abnormality - Troponin is negative - BNP is over 10,000 - CRP 4.72 - UA shows 10-20 WBCs consistent with UTI - X-ray chest shows no pulmonary findings - CTA Aorta shows moderate stenosis throughout, and swelling suspicious for cellulitis in R LE Interventions of: -to-go PO cephalexin, and Rx sent for cephalexin and mupirocin. Recommend he get compression stockings and referral to wound care. ED Course/Assessment/Plan: 69-year-old male presents with about a week of right lower extremity swelling and redness and warmth to touch with pain below his knee, he has history of CHF and edema and atrial fibrillation he is anticoagulated I do not suspect DVT. I did perform a CTA of his aorta with runoffs which showed moderate stenosis intermittent throughout bilateral lower extremities with concerns for cellulitis and fat stranding seen in the right lower extremity, this will be treated by cephalexin, he has an incidental finding of UTI after he endorsed dysuria, this will also be covered by cephalexin, I did give him prescription topical mupirocin and recommend he get compression stockings and seek an urgent referral to wound care in the outpatient setting. I stressed strict return criteria for any worsening signs of infection despite treatment and any other emergent concerns with his heart to return immediately. Findings not consistent with hypoxia, ischemic limb, DVT, abscess, acute heart failure exacerbation. Disposition of cellulitis of right lower leg, urinary tract infection. Patient verbalized understanding of the plan and return to ED criteria and engaged in shared decision making. Medical Records Medical records reviewed: Yes I reviewed the patient's medical records. Imaging Data Radiologic Study: Attestation: I personally reviewed and interpreted this imaging study as follows: Imaging: CT Scan Radiologist's impression: Exam: CTA Abdominal Aorta and Bilateral Lower Extremities (Run-off) With Contrast Exam date and time: 08/23/2024 11:36 AM Age: 69 years old Clinical indication: Other: R lower leg cellulitis w component of pad? ; Prior surgery; Surgery date: 6+ months; Surgery type: Hip surg TECHNIQUE: Imaging protocol: Computed tomographic angiography of the of the abdominal aorta, pelvis and bilateral lower extremities with contrast. 3D rendering (Not supervised by radiologist): MIP and/or 3D reconstructed images were created by the technologist. Contrast material: OMNI 350; Contrast volume: 150 ml; Contrast route: INTRAVENOUS (IV); COMPARISON: CT LOWER EXTREMITY WO CONTRAST RIGHT (GENERIC) 06/18/2024 4:01 PM FINDINGS: Aorta: Atheroma of the infrarenal abdominal aorta with mild stenosis. Celiac trunk and mesenteric arteries: Mild stenosis of the celiac artery at its origin. Moderate stenosis of the superior mesenteric artery at its origin. Renal arteries: [id number] stenosis of bilateral renal arteries at their origins. Right iliac arteries: Calcified atheroma of the right common iliac artery with moderate stenosis. Mild stenosis of the right internal iliac artery. Right femoral/popliteal arteries: Mild stenosis of the right common femoral artery. Mild stenosis of the right popliteal artery. Right infrapopliteal arteries: No occlusion or significant stenosis. Left iliac arteries: Mild stenosis of the left common iliac artery. Mild stenosis of the left internal iliac artery. Calcified atheroma of the left external iliac artery with mild stenosis. Left femoral/popliteal arteries: Mild stenosis of the left common femoral artery. Mild stenosis of the left popliteal artery. Mild stenosis of the left superficial femoral artery. Left infrapopliteal arteries: No occlusion or significant stenosis. Lungs: Calcified granulomas in the right middle lobe. Bilateral lower lobe atelectatic changes. Liver: No mass. Gallbladder and biliary ducts: Multiple calcified gallstones are present. Pancreas: Unremarkable. No mass. No ductal dilation. Spleen: Multifocal cortical thickening of the spleen with calcifications. Adrenal glands: Normal. No mass. Kidneys and ureters: Multifocal cortical scarring of the kidneys, from prior insult. There is no evidence of hydronephrosis. Stomach and bowel: Unremarkable. No obstruction. No mucosal thickening. Appendix: No evidence of appendicitis. Urinary bladder: There is mild bladder wall thickening to be correlated with urinalysis to rule out urinary tract infection. Reproductive: The prostate gland demonstrates nonspecific parenchymal calcifications. Intraperitoneal space: Unremarkable. No free air. No significant fluid collection. Lymph nodes: Prominent bilateral inguinal lymph nodes measuring up to 2 x 1.7 cm in the left inguinal region. Bones/joints: Right femur intramedullary nail and locking screws with no complications. Subacute to chronic right intertrochanteric fracture. There are diffuse enthesopathic changes consistent with benign diffuse idiopathic skeletal hyperostosis (DISH). The lumbar spine demonstrates moderate degenerative changes at multiple levels. Soft tissues: There is a right lower extremity skin thickening and subcutaneous fat stranding extending from the thigh to the foot. There is left lower extremity skin thickening and subcutaneous fat stranding involving the leg and foot. IMPRESSION: 1. Scattered mild stenosis of the lower extremity arteries. 2. [id number] stenosis of the mesenteric arteries. 3. Edema of bilateral lower extremities, more extensive on the right side to be correlated with exam to rule out cellulitis. 4. Cholelithiasis with no changes of acute cholecystitis. 5. Prominent bilateral inguinal lymph nodes, likely reactive. Dictated and Authenticated by: Manuel Cohen MD. Radiologic Study #2: Attestation: I personally reviewed and interpreted this imaging study as follows: Imaging: X-Ray Radiologist's impression: EXAM: XR CHEST 1V IN DI DEPT CLINICAL HISTORY: elev BNP, edema TECHNIQUE: 2D digital imaging was performed of the chest. One image was obtained. An AP view was obtained. COMPARISON: CR,XR XR CHEST 1V IN DI DEPT from 06/14/2024 FINDINGS: MEDIASTINUM: Normal. HEART: Normal. PULMONARY VASCULATURE: Normal. LUNGS: No focal consolidating infiltrates are seen. There is a calcified granuloma again seen in the right lung base. PLEURAL SPACE: No pleural effusion or pneumothorax. BONE:Within normal limits for the patient's age. The patient has a left reverse total shoulder arthroplasty. OTHER FINDINGS:There is a nipple shadow seen on the left. IMPRESSION: No acute pulmonary findings. Lab Data Lab results reviewed: Yes I reviewed the patient's lab results. Labs: 08/23/24 11:49 Urine - Reflex from Ua Urine Culture - Pending 08/23/24 11:00 Blood Blood Culture - Pending 08/23/24 10:13 Blood Blood Culture - Pending Laboratory Tests Range/Units 08/23/24 08/23/24 10:25 11:49 WBC (4.4-10.8) 10^3/uL 10.41 RBC (4.36-5.78) 10^6/uL 3.93 L Hgb (13.5-17.5) g/dL 12.8 L Hct (40.0-50.0) % 38.6 L MCV (80-95) fL 98 H MCH (27.0-33.0) pg 32.6 MCHC (32.0-36.0) % 33.2 RDW (11.8-14.1) % 12.5 Plt Count (130-400) 10^3/uL 193 MPV (8.0-11.0) fL 10.5 Immature Gran % % 1.0 Neutrophils % % 67.9 Lymphocytes % % 15.5 Monocytes % % 12.7 Eosinophils % % 2.2 Basophils % % 0.7 Nucleated RBC % (0.0-0.3) % 0.0 Absolute Neutrophils (1.2-6.7) 10^3/uL 7.08 H Absolute Lymphocytes (1.2-3.4) 10^3/uL 1.61 Absolute Monocytes (0.1-0.8) 10^3/uL 1.32 H Absolute Eosinophils (0.0-0.7) 10^3/uL 0.23 Absolute Basophils (0.0-0.2) 10^3/uL 0.07 VBG Lactate (<or=2.0) mmol/L 1.5 Sodium (136-145) mmol/L 137 Potassium (3.5-5.1) mmol/L 4.1 Chloride (98-107) mmol/L 102 Carbon Dioxide (21.0-32.0) mmol/L 27.4 Anion Gap (3-11) mmol/L 7.6 BUN (7-18) mg/dL 11 Creatinine (0.70-1.30) mg/dL 1.1 Est GFR (CKD-EPI 2020) (mL/min/1.73m2) 72.67 Glucose (74-106) mg/dL 103 Calcium (8.5-10.1) mg/dL 8.6 Total Bilirubin (0.2-1.0) mg/dL 0.5 AST (15-37) U/L 13 L ALT (16-63) U/L 12 L Alkaline Phosphatase (46-116) U/L 110 Troponin I (<or=76) ng/L 16 C-Reactive Protein (<or=0.5) mg/dL 4.72 H NT-Pro-B Natriuret Pep (<300) pg/mL 30115 H Total Protein (6.4-8.2) g/dL 6.6 Albumin (3.4-5.0) g/dL 2.7 L Urine Color (Yellow) Yellow Urine Clarity (Clear) Clear Urine pH (5-8) 6.0 Ur Specific [place] (1.005-1.025) <= 1.005 Urine Protein (Neg-Trace) mg/dL Negative Urine Ketones (Negative) mg/dL Negative Urine Blood (Negative) Negative Urine Nitrite (Negative) Negative Urine Bilirubin (Negative) Negative Urine Urobilinogen (Up to 0.2) mg/dL 0.2 Ur Leukocyte Esterase (Negative) Trace H Urine RBC (0-2) HPF 0-2 Urine WBC (0-5) HPF 10-20 H Ur Epithelial Cells (Negative) HPF Rare Urine Crystals (Negative) HPF Negative Urine Bacteria (Negative) HPF Rare Urine Casts (Negative) LPF Negative Urine Mucus (Negative) Negative Urine Other (Negative) Rare Yeast Ur Culture Indicated? Yes Urine Glucose (Negative) mg/dL Negative Quality:SDOH Health Related Social Needs: Health related social needs food insecurity transpo insecurity house/econ circumstance daily activities lonely/isolated Health related social needs details 19 Stairs to get into house at home. lives alone in apartment, on Social security, friends have meals a couple times a week, uses [employer] for transportation, Would benefit from meals on wheels, pt would prefer not to have to move due to stairs and cost of apartment PFSH All Active Problems (Updated 08/23/24 @ 13:37 by EDMAR Parker) Urinary tract infection (Acute) Cellulitis of right lower leg (Acute) Stage II pressure ulcer of sacral region (Acute) Essential hypertension (Acute) AAA (abdominal aortic aneurysm) (Acute) Deep vein thrombosis (Chronic) Nicotine dependence (Acute) Paroxysmal A-fib (Acute) Acute pulmonary embolus (Acute) Hematoma of right thigh (Acute) Fracture, intertrochanteric, right femur (Acute) Atrial fibrillation with rapid ventricular response (Acute) Acute urinary retention (Acute) Cerebral cortical contusion-no coma (Acute) Fall (Acute) Closed fracture of right hip (Acute) Recurrent epistaxis (Acute) Chronic kidney disease (Chronic) Heart failure with reduced ejection fraction (Acute) Hepatitis C (Chronic) Per H&P: s/p tx. . He had an abc CT earlier this year which showed a normal liver. Normal anion gap metabolic acidosis (Acute) High anion gap metabolic acidosis (Acute) Lactic acidosis (Acute) Coagulopathy (Acute) Leukocytosis (Acute) Hyperphosphatemia (Acute) Hypocalcemia (Acute) Encephalopathy (Acute) Shock circulatory (Acute) Hyperkalemia (Acute) Acute renal failure (Acute) Acute liver failure (Acute) HFrEF (heart failure with reduced ejection fraction) (Acute) Anemia due to blood loss (Acute) Elevated liver enzymes (Acute) Acute posterior epistaxis (Acute) Acute anterior epistaxis (Acute) COPD (chronic obstructive pulmonary disease) (Chronic) Closed right clavicular fracture (Acute ~11/2021) Right shoulder pain (Acute) CHF (congestive heart failure) (Chronic) No-show for appointment (Acute) Left leg weakness (Acute) MCL sprain of right knee (Acute) Alcohol abuse (Chronic) Chest discomfort (Chronic) Acute on chronic diastolic heart failure (Acute) Bilateral pleural effusion (Acute) Falls (Acute) Pulmonary nodule (Acute) Acute respiratory failure with hypoxia (Acute) Pneumonia (Acute) Acute respiratory distress (Acute) Femur fracture, right (Acute) Fracture, rib (Acute) A-fib (Chronic) Laceration of digital nerve of left thumb (Acute) Gastritis and duodenitis (Acute) Medical History JOS (acute kidney injury) Leg edema Cardiogenic shock Tobacco use Back pain Obesity Chronic pain Asthma Adjustment disorder Pain in left wrist Right hip pain Insomnia Medication monitoring encounter History of depression Opioid withdrawal Cataract Blurred vision Patella-femoral syndrome Trochanteric bursitis Knee pain, right Rib pain Hx of viral pneumonia Lumbar radiculopathy Cocaine abuse Lightheadedness Abdominal pain in male Positive urine drug screen Dyspnea on exertion Voiding dysfunction Clavicle pain Arthritis Neck fracture Per pt. states he broke his nevk 5-6 years ago. 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
[2024-08-23 10:36] LABS: Lactate 1.5 mmol/L (<or=2.0)
[2024-08-23 10:38] LABS: Absolute Basophil Count 0.07 10^3/uL (0.0-0.2); Absolute Eosinophil Count 0.23 10^3/uL (0.0-0.7); Absolute Lymphocyte Count 1.61 10^3/uL (1.2-3.4); Absolute Monocyte Count 1.32 10^3/uL (0.1-0.8); Absolute Neutrophil Count 7.08 10^3/uL (1.2-6.7); Basophils % 0.7 %; Eosinophils % 2.2 %; HCT 38.6 % (40.0-50.0); HGB 12.8 g/dL (13.5-17.5); Lymphocytes % 15.5 %; MCH 32.6 pg (27.0-33.0); MCHC 33.2 % (32.0-36.0); MCV 98 fL (80-95); MPV 10.5 fL (8.0-11.0); Monocytes % 12.7 %; Neutrophils % 67.9 %; Platelet Count 193 10^3/uL (130-400); RBC 3.93 10^6/uL (4.36-5.78); RDW 12.5 % (11.8-14.1); RDW-SD 45.5 fL; WBC 10.41 10^3/uL (4.4-10.8)
--- NOTE | 2024-08-23 10:56 | DI.CT_ITS ---
Exam(s) CT ABD AORTA CTA W RUNOFF EXAM: CT ABD AORTA CTA W RUNOFF CLINICAL HISTORY: R lower leg cellulitis w component of PAD?. TECHNIQUE: Imaging Protocol: Axial CT angiography was performed with multi- slice acquisition and multi-planar and/or 3D reconstructions. CONTRAST MATERIAL: Intravenous: Omnipaque 350 Contrast volume:115 mL Oral: No COMPARISON: CT CT ABDOMEN PELVIS W from 07/04/[address] CHEST PE CTA from 02/10/[address] THORACIC SPINE RECONSTRUCTION from 06/14/[address] LUMBAR SPINE RECONSTRUCTION from 06/14/[address] LOWER EXTREMITY RT WO from 06/14/2024 FINDINGS: Vascular Structures: Abdomen and pelvis: Celiac [place]/SMA: No evidence of occlusion or significant stenosis. Calcific plaque is seen at the origins of both the celiac axis and the superior mesenteric artery with less than 50 percent stenosis. Renal Arteries: No evidence of occlusion or significant stenosis. Atherosclerotic calcification is seen at the origins of the renal arteries bilaterally. No significant stenosis is seen. Aorta: There is a 3.4 cm infrarenal abdominal aortic aneurysm. No evidence of dissection. Atherosclerotic calcification is present. Iliac Arteries: No evidence of occlusion or significant stenosis. There is atherosclerotic calcification in the iliac arteries bilaterally. Less than 50 percent stenosis is seen in the common iliac arteries bilaterally. Lower extremities: Right: Femoral: No evidence of occlusion or significant stenosis. Atherosclerotic calcification is present with less than 50 percent stenosis. Superficial femoral Artery: No evidence of occlusion or significant stenosis. Atherosclerotic calcification is present with less than 50 percent stenosis. Popliteal: No evidence of occlusion or significant stenosis. Atherosclerotic calcification is present with less than 50 percent stenosis. Infrapopliteal arteries: No evidence of occlusion or significant stenosis. That Left: Femoral: No evidence of occlusion or significant stenosis. Atherosclerotic calcification is present with less than 50 percent stenosis. Superficial femoral artery: No evidence of occlusion or significant stenosis. There is less than 50 percent stenosis due to atherosclerotic calcification. Popliteal: No evidence of occlusion or significant stenosis. There is less than 50 percent stenosis due to atherosclerotic calcification. Infrapopliteal arteries: No evidence of occlusion or significant stenosis. Soft Tissues: Lung bases: Cardiomegaly is present. Calcified granuloma are present in the lungs. Liver: There is decreased attenuation of the liver suggesting fatty infiltration. No measurable mass. Portal, splenic and superior mesenteric veins: Unremarkable. Gallbladder and biliary tract: Gallstones are present. There is no biliary ductal dilatation. Pancreas: Normal density, no abnormal calcifications or inflammatory process. There is a 1.4 cm round enhancing lesion in the tail of the pancreas. Spleen: Normal. Kidneys: There is bilateral renal cortical scarring. No radiodense stones or obstructive uropathy. No masses seen. Adrenal glands: No masses seen. Aorta: There is a 3.4 cm infrarenal abdominal aortic aneurysm. There is no evidence of dissection. Atherosclerotic calcification is present. Lymph nodes: Unremarkable. Bladder: Symmetric distention, no gross wall thickening. Reproductive organs: Unremarkable. Bowel: No obstruction or bowel wall thickening. There is no evidence of appendicitis. Peritoneal cavity: No ascites, collection or mesenteric inflammatory response. No free air. Bones: Within normal limits for the patient's age. There is intramedullary cassia seen in the right femur. Soft tissues: There is edema in the subcutaneous tissues of the right thigh. This extends into the lower leg. To a lesser degree, there is edema seen in the soft tissues of the left lower leg. No focal fluid collection is seen to suggest an abscess. IMPRESSION: 1. No acute abdominal or pelvic process. 2. 3.4 cm infrarenal abdominal aortic aneurysm. No dissection. 3. Cholelithiasis without biliary ductal dilatation. 4. Atherosclerotic disease is seen in the lower extremities with less than 50 percent stenosis as described above. No occlusion is seen. 5. Subcutaneous edema seen in the lower extremities, right greater than left. No focal fluid collection is seen to suggest an abscess. This may represent cellulitis. 6. The preliminary [facility] report was reviewed. RADIATION DOSE DELIVERED: 685.89mGy.cm Total DLP 685.89mGy.cm Total DLP DATA REPOSITORY: All CT scans at this facility are submitted to the National Radiology Data Registry (NRDR) Dose Index Registry (DIR) with the [employer] (ACR). RADIATION OPTIMIZATION: All CT scans at this facility use at least one of these dose optimization techniques: automated exposure control; mA and/or kV adjustment per patient size (includes targeted exams where dose is matched to clinical indication); or iterative reconstruction.
[2024-08-23 11:05] LABS: ALT 12 U/L (16-63); AST 13 U/L (15-37); Albumin 2.7 g/dL (3.4-5.0); Alkaline Phosphatase 110 U/L (46-116); Anion Gap 7.6 mmol/L (3-11); BUN 11 mg/dL (7-18); Bilirubin, Total 0.5 mg/dL (0.2-1.0); C-Reactive Protein 4.72 mg/dL (<or=0.5); CO2 27.4 mmol/L (21.0-32.0); CREATININE 1.1 mg/dL (0.70-1.30); Calcium 8.6 mg/dL (8.5-10.1); Chloride 102 mmol/L (98-107); Estimated GFR 72.67 (mL/min/1.73m2); Glucose 103 mg/dL (74-106); NT-proBNP 10610 pg/mL (<300); Potassium 4.1 mmol/L (3.5-5.1); Sodium 137 mmol/L (136-145); Total Protein 6.6 g/dL (6.4-8.2); Troponin I 16 ng/L (<or=76)
--- NOTE | 2024-08-23 11:23 | DI.RAD_ITS ---
Exam(s) XR CHEST 1V IN DI DEPT EXAM: XR CHEST 1V IN DI DEPT CLINICAL HISTORY: elev BNP, edema TECHNIQUE: 2D digital imaging was performed of the chest. One image was obtained. An AP view was obtained. COMPARISON: CR,XR XR CHEST 1V IN DI DEPT from 06/14/2024 FINDINGS: MEDIASTINUM: Normal. HEART: Normal. PULMONARY VASCULATURE: Normal. LUNGS: No focal consolidating infiltrates are seen. There is a calcified granuloma again seen in the right lung base. PLEURAL SPACE: No pleural effusion or pneumothorax. BONE:Within normal limits for the patient's age. The patient has a left reverse total shoulder arthroplasty. OTHER FINDINGS:There is a nipple shadow seen on the left. IMPRESSION: No acute pulmonary findings. DATA REPOSITORY: RADIATION DOSE DELIVERED:
[2024-08-23] MEDS: Normal Saline - Diluent 50 ML VIAL IJ (11:28)
[2024-08-23] MEDS: Omnipaque 350 MG/ML 100 ML BTL IJ (11:34)
[2024-08-23 11:56] LABS: Bilirubin Negative (Negative); Blood Negative (Negative); Clarity Clear (Clear); Glucose Negative (Negative); Ketones Negative (Negative); Leukocyte Esterase Trace (Negative); Nitrite Negative (Negative); Specific Gravity <= 1.005 (1.005-1.025); Urobilinogen 0.2 mg/dL (Up to 0.2)
[2024-08-23 12:05] LABS: Bacteria Rare HPF (Negative); C & S Indicated? Yes; Casts Negative LPF (Negative); Crystals Negative HPF (Negative); Epithelial Cells Rare HPF (Negative); Mucus Negative (Negative); Other Cells Rare Yeast (Negative); RBC 0-2 HPF (0-2)
--- NOTE | 2024-08-23 13:00 | TELEP.MEDR_ITS ---
Date of service: 08/23/24 Time of Service: 13:01 [facility] Med Rec Allergies Allergies: amlodipine Allergy (Unknown, Verified 08/23/24 09:30) Other (See Comment) trazodone Allergy (Unknown, Verified 08/23/24 09:30) Other (See Comment) budesonide (From Pulmicort) Allergy (Verified 08/23/24 09:30) Other (See Comment) benazepril Adverse Reaction (Intermediate, Verified 08/23/24 09:30) Swelling/Edema diazepam Adverse Reaction (Intermediate, Verified 08/23/24 09:30) Agitation clonidine Adverse Reaction (Mild, Verified 08/23/24 09:30) Dry mouth lisinopril Adverse Reaction (Mild, Verified 08/23/24 09:30) Cough losartan Adverse Reaction (Mild, Verified 08/23/24 09:30) Cough tramadol Adverse Reaction (Verified 08/23/24 09:30) Nauseous Interview Person Interviewed: Pt unable, obtained medication fill record from [facility], reviewed [facility] from June 2024 admission for further clarity Quality Quality of Interview/Accuracy of Medication List: Fair Sources Sources used to compile medication list: [facility] Medication List, Retail Pharmacy and MAR Changes made to Home Medication List: ADDITIONS: Zolpidem DELETIONS: Many due to pt not having a current outpatient supply CHANGES: None Additional Notes Additional Notes: Pt does not know medications he is taking. Medications based on fill history from [facility], as these are the only prescriptions pt has in possession. There are likely a number of medications that he does not have that he should be taking. Recommended Changes Recommended Changes(reason for recommendation): None Attestation: The home medication list is now updated to the best of my knowledge and is ready to be reconciled by the provider. Please contact the [facility] Medication Reconciliation Pharmacist at for any questions.
--- NOTE | 2024-08-23 13:19 | DI.[facility]_ITS ---
PROCEDURE INFORMATION: Exam: CTA Abdominal Aorta and Bilateral Lower Extremities (Run-off) With Contrast Exam date and time: 08/23/2024 11:36 AM Age: 69 years old Clinical indication: Other: R lower leg cellulitis w component of pad? ; Prior surgery; Surgery date: 6+ months; Surgery type: Hip surg TECHNIQUE: Imaging protocol: Computed tomographic angiography of the of the abdominal aorta, pelvis and bilateral lower extremities with contrast. 3D rendering (Not supervised by radiologist): MIP and/or 3D reconstructed images were created by the technologist. Contrast material: OMNI 350; Contrast volume: 150 ml; Contrast route: INTRAVENOUS (IV); COMPARISON: CT LOWER EXTREMITY WO CONTRAST RIGHT (GENERIC) 06/18/2024 4:01 PM FINDINGS: Aorta: Atheroma of the infrarenal abdominal aorta with mild stenosis. Celiac trunk and mesenteric arteries: Mild stenosis of the celiac artery at its origin. Moderate stenosis of the superior mesenteric artery at its origin. Renal arteries: [id number] stenosis of bilateral renal arteries at their origins. Right iliac arteries: Calcified atheroma of the right common iliac artery with moderate stenosis. Mild stenosis of the right internal iliac artery. Right femoral/popliteal arteries: Mild stenosis of the right common femoral artery. Mild stenosis of the right popliteal artery. Right infrapopliteal arteries: No occlusion or significant stenosis. Left iliac arteries: Mild stenosis of the left common iliac artery. Mild stenosis of the left internal iliac artery. Calcified atheroma of the left external iliac artery with mild stenosis. Left femoral/popliteal arteries: Mild stenosis of the left common femoral artery. Mild stenosis of the left popliteal artery. Mild stenosis of the left superficial femoral artery. Left infrapopliteal arteries: No occlusion or significant stenosis. Lungs: Calcified granulomas in the right middle lobe. Bilateral lower lobe atelectatic changes. Liver: No mass. Gallbladder and biliary ducts: Multiple calcified gallstones are present. Pancreas: Unremarkable. No mass. No ductal dilation. Spleen: Multifocal cortical thickening of the spleen with calcifications. Adrenal glands: Normal. No mass. Kidneys and ureters: Multifocal cortical scarring of the kidneys, from prior insult. There is no evidence of hydronephrosis. Stomach and bowel: Unremarkable. No obstruction. No mucosal thickening. Appendix: No evidence of appendicitis. Urinary bladder: There is mild bladder wall thickening to be correlated with urinalysis to rule out urinary tract infection. Reproductive: The prostate gland demonstrates nonspecific parenchymal calcifications. Intraperitoneal space: Unremarkable. No free air. No significant fluid collection. Lymph nodes: Prominent bilateral inguinal lymph nodes measuring up to 2 x 1.7 cm in the left inguinal region. Bones/joints: Right femur intramedullary nail and locking screws with no complications. Subacute to chronic right intertrochanteric fracture. There are diffuse enthesopathic changes consistent with benign diffuse idiopathic skeletal hyperostosis (DISH). The lumbar spine demonstrates moderate degenerative changes at multiple levels. Soft tissues: There is a right lower extremity skin thickening and subcutaneous fat stranding extending from the thigh to the foot. There is left lower extremity skin thickening and subcutaneous fat stranding involving the leg and foot. IMPRESSION: 1. Scattered mild stenosis of the lower extremity arteries. 2. Clsa-ea-[id number] stenosis of the mesenteric arteries. 3. Edema of bilateral lower extremities, more extensive on the right side to be correlated with exam to rule out cellulitis. 4. Cholelithiasis with no changes of acute cholecystitis. 5. Prominent bilateral inguinal lymph nodes, likely reactive. Dictated and Authenticated by: Manuel Cohen MD. Orderin Flavia Scruggs MD
[2024-08-23 13:54] VITALS: BP 110/75; PULSE 110; RESP 18; O2SAT 96
[2024-08-23] MEDS: Cephalexin 500 MG CAP, 2 CAPS/BTL PO ×2 (14:27→14:28)
[2024-08-23] MEDS: Cephalexin 500 MG CAP PO (14:27)
== END 2024-08-23 15:53 | disposition home or self-care (01) ==
PROVIDERS: Emergency Provider Physician Assistant; PCP Family Medicine
DX: L03.115 Cellulitis of right lower limb (principal); N39.0 Urinary tract infection, site not specified; I48.91 Unspecified atrial fibrillation; I10 Essential (primary) hypertension; F17.210 Nicotine dependence, cigarettes, uncomplicated; Z79.01 Long term (current) use of anticoagulants
CPT/HCPCS: 36415; 75635; 80053; 87040; 96361; 96374; 99285; 71045; 81003; 81015; 83605; 83880; 84484; 85025; 86140; 87086; 99284; J3490

== ENCOUNTER 2024-09-10 13:41 | Inpatient (IN) | payer MEDICARE, MEDICAID, SELFPAY ==
[2024-09-10] VITALS (9 sets, daily range): BP systolic 141–163; BP diastolic 65–98; PULSE 77–114; RESP 16; TEMP 35.8; O2SAT 94–98
--- NOTE | 2024-09-10 14:00 | DI.CT_ITS ---
Exam(s) CT HEAD CERV SPINE FACIAL WO EXAM: CT HEAD CERV SPINE FACIAL WO CLINICAL HISTORY: fall, intoxicated, lac over nose. TECHNIQUE: Imaging Protocol: Axial computed tomography images with coronal and sagittal reformatted images were created and reviewed CT CT HEAD CERVICAL SPINE WO from 06/14/2024 FINDINGS: CT Head: Ventricles and Extra axial spaces: Normal in size and morphology for the patient's age. Hemorrhage: None. Cerebral parenchyma: No evidence of acute hemorrhage or acute infarct. Mild atrophy. Moderate white matter changes of small vessel disease. Midline shift: None. Brainstem/Cerebellum: Normal. Calvarium: Normal. Visualized Paranasal sinuses/Mastoids: Clear. Soft Tissues: Unremarkable. CT Face: Facial Bones: No fracture is noted in facial bones. Sinuses and Mastoids: Unremarkable. Globes, extraocular muscles, optic nerves and retrobulbar fat: Normal. Upper aerodigestive tract: Normal. Mandible and bilateral temporomandibular joints: Normal. Soft tissues: Normal. CT Cervical Spine: Bones: No acute fracture or subluxation. There are severe degenerative changes throughout the cervical spine. There are prominent endplate osteophytes as well as facet degenerative changes. Soft Tissues: Unremarkable. Lung Apices: Clear. IMPRESSION: 1. No acute intracranial process. 2. No acute fracture or subluxation in the cervical spine. Severe degenerative changes. 3. No acute facial fracture. RADIATION DOSE DELIVERED: 2,093.99mGy.cm Total DLP DATA REPOSITORY: All CT scans at this facility are submitted to the National Radiology Data Registry (NRDR) Dose Index Registry (DIR) with the [employer] (ACR). RADIATION OPTIMIZATION: All CT scans at this facility use at least one of these dose optimization techniques: automated exposure control; mA and/or kV adjustment per patient size (includes targeted exams where dose is matched to clinical indication); or iterative reconstruction.
--- NOTE | 2024-09-10 14:00 | DI.RAD_ITS ---
Exam(s) XR FEMUR RT EXAM: XR FEMUR RT CLINICAL HISTORY: pain s/p fall. TECHNIQUE: 2D digital imaging was performed. COMPARISON: CR,XR XR FEMUR RT from 06/14/2024 FINDINGS: Four views Compared to 06/14/2024 there has been ORIF of the intertrochanteric fracture of the hip. The lag screw is supported by long intramedullary cassia which extends to the distal femur radius secured by 2 screws. Proximally the intertrochanteric fracture line is still evident but not displaced. There is increased dystrophic bone off the medial aspect of the fractured hip in the region of the avulsed lesser trochanter.. There is no hip joint space narrowing. No obvious hardware loosening IMPRESSION: As above. DATA REPOSITORY: RADIATION DOSE DELIVERED:
--- NOTE | 2024-09-10 14:00 | DI.RAD_ITS ---
Exam(s) XR PELVIS AP EXAM: XR PELVIS AP CLINICAL HISTORY: pain s/p fall. TECHNIQUE: 2D digital imaging was performed. COMPARISON: CR,XR XR PELVIS AP from 06/14/2024 FINDINGS: Single AP view There has been interval ORIF of the intertrochanteric fracture of the right hip. Alignment appears satisfactory on this limited image. Some dystrophic bone is noted medially. The lesser trochanter is again noted to have been avulsed as was evident on 06/14/2024. Opposite-left hip appears unremarkable as does the remainder of the pelvis. IMPRESSION: As above. DATA REPOSITORY: RADIATION DOSE DELIVERED:
--- NOTE | 2024-09-10 14:07 | W.ED.GENAD ---
Discharge Plan Disposition Patient Disposition: Admit to [facility] Condition: Stable Discharge Details Clinical Impression: Blunt head trauma, Fall, Contusion of hip, right, Acute hyponatremia, Alcohol intoxication Primary Care Provider: Sherri Guzman V ED Provider: Edwardo Molina [place] Meds and New Rx's Prescriptions: No Action gabapentin 300 mg capsule 300 mg PO TID Patient Comments: 08/23/23 renal dosing per [facility] d/c RH, 06/07/24 300mg TID qty 270 per [facility] thiamine HCl (vitamin B1) 100 mg tablet 100 mg PO DAILY Patient Comments: 08/23/23 per [facility] d/c summary RH tamsulosin 0.4 mg capsule 0.4 mg PO DAILY ferrous gluconate 324 mg (37.5 mg iron) tablet 324 mg PO Q48H Patient Comments: Prescribed once daily Per [facility] metoprolol succinate 25 mg tablet extended release 24 hr 50 mg PO DAILY magnesium oxide 400 mg magnesium tablet 400 mg PO BID Patient Comments: Per [facility] cyclobenzaprine 10 mg Tablet 10 mg PO TID PRN PRN Patient Comments: Per [facility] citalopram 20 mg Tablet 20 mg PO QAM pantoprazole 40 mg Tablet,Delayed Release (Dr/Ec) 40 mg PO DAILY Patient Comments: Per [facility] 05/18/24 qty 90 topiramate 50 mg Tablet 150 mg PO DAILY Patient Comments: Per [facility] polyethylene glycol 3350 17 gram Powder In Packet 17 g PO DAILY PRN PRN (Reason: Constipation) Qty: 0 0RF atorvastatin [Lipitor] 80 mg tablet 80 mg PO QPM digoxin [Digitek] 125 mcg (0.125 mg) tablet 125 mcg PO DAILY albuterol sulfate 90 mcg/actuation HFA aerosol inhaler 2 inh inhalation Q4H PRN PRN lidocaine 5 % adhesive patch,medicated See Rx Instructions .ROUTE .COMPLEX Patient Comments: Was taking at [facility] in June, no current Rx Rx Instructions: leave on most painful area for up to 12 hrs multivitamin Tablet 1 tab PO DAILY melatonin 3 mg tablet 6 mg PO HS PRN PRN nicotine 14 mg/24 hr patch 24 hour 1 patch transdermal DAILY sennosides-docusate sodium [Senna with Docusate Sodium] 8.6-50 mg tablet 2 tab-cap PO BID celecoxib [Celebrex] 100 mg Capsule 200 mg PO BID Qty: 30 0RF Rx Instructions: Re-evaluate need as per PCP for refill hydromorphone 2 mg Tablet 2 mg PO Q6H PRNQty: 20 0RF Rx Instructions: Refill as per outpatient provider- The patient was on chronic Rx for hydrocodone-APAP 10/325 mg (#112 tabs for 28 days supply) that was switched to hydromorphone at [facility] Banophen Anti-Itch 2-0.1 % Cream 1 applic topical BID PRN PRNQty: 28 0RF enoxaparin 30 mg/0.3 mL Syringe 30 mg subcut Q12H Qty: 8.1 0RF Rx Instructions: Until Jul 16 2024 then stop and take Eliquis 5 mg oral BID starting on Jul 17 2024 AM acetaminophen 500 mg Tablet 1,000 mg PO Q6H PRN hydrocodone-acetaminophen 10-325 mg tablet 1 tab PO Q6H PRN (Reason: pain) Patient Comments: Per [facility] zolpidem 10 mg tablet 10 mg PO QHS PRN (Reason: insomnia) Patient Comments: Per [facility], routine medication, last filled 06/11/23 mupirocin [Centany] 2 % ointment 1 applic topical TID Qty: 15 0RF HPI General Mode of arrival: EMS. Date/Time Provider Initiated Documentation: 09/10/24 13:59. Information obtained by: patient and EMS. History of Present Illness 69 year old M presents to the emergency department with the chief complaint of fall, alcohol intoxication, right hip pain, described as moderate, Quality is described as aching, and is localized to the right and lower extremity. Patient reports no radiation. Patient started experiencing this hour(s) (3) and it has been constant. No relieving factors improve symptom(s), No exacerbating factors reported . Patient notes denies chest pain, fever/chills and shortness of breath. Patient did receive the following treatments prior to arrival, none Related Data Home Medications ?Medication ?Instructions ?Recorded ?Confirmed citalopram 20 mg tablet 20 mg PO QAM 11/23/21 09/10/24 Held on 09/10/24. Instructions: Pt Stopped/Never Started cyclobenzaprine 10 mg tablet 10 mg PO TID PRN PRN 11/23/21 09/10/24 Held on 09/10/24. Instructions: Pt Stopped/Never Started pantoprazole 40 mg tablet,delayed 40 mg PO DAILY 11/23/21 09/10/24 release Held on 09/10/24. Instructions: Pt Stopped/Never Started topiramate 50 mg tablet 150 mg PO DAILY 11/23/21 08/23/24 polyethylene glycol 3350 17 gram 17 g PO DAILY PRN PRN Constipation 11/29/21 08/23/24 oral powder packet #0 ea gabapentin 300 mg capsule 300 mg PO TID 08/23/23 09/10/24 Held on 09/10/24. Instructions: Pt Stopped/Never Started tamsulosin 0.4 mg capsule 0.4 mg PO DAILY 08/23/23 08/23/24 thiamine HCl (vitamin B1) 100 mg 100 mg PO DAILY 08/23/23 08/23/24 tablet ferrous gluconate 324 mg (37.5 mg 324 mg PO Q48H 11/21/23 09/10/24 iron) tablet Held on 09/10/24. Instructions: Pt Stopped/Never Started magnesium oxide 400 mg PO BID 11/21/23 09/10/24 Held on 09/10/24. Instructions: Pt Stopped/Never Started metoprolol succinate 25 mg 50 mg PO DAILY 11/21/23 09/10/24 tablet,extended release 24 hr Held on 09/10/24. Instructions: Pt Stopped/Never Started albuterol sulfate 90 mcg/actuation 2 inh inhalation Q4H PRN PRN 06/26/24 09/10/24 aerosol inhaler Held on 09/10/24. Instructions: Pt Stopped/Never Started atorvastatin 80 mg tablet (Lipitor) 80 mg PO QPM 06/26/24 09/10/24 Held on 09/10/24. Instructions: Pt Stopped/Never Started digoxin 125 mcg (0.125 mg) tablet 125 mcg PO DAILY 06/26/24 09/10/24 (Digitek) Held on 09/10/24. Instructions: Prescription Finished lidocaine 5 % topical patch See Rx Instructions topical 06/26/24 09/10/24 Held on 09/10/24. .COMPLEX Instructions: Pt Stopped/Never Started melatonin 3 mg tablet 6 mg PO HS PRN PRN 06/26/24 09/10/24 Held on 09/10/24. Instructions: Pt Stopped/Never Started multivitamin 1 tab PO DAILY 06/26/24 09/10/24 Held on 09/10/24. Instructions: Pt Stopped/Never Started nicotine 14 mg/24 hr daily 1 patch transdermal DAILY 06/26/24 09/10/24 transdermal patch Held on 09/10/24. Instructions: Pt Stopped/Never Started sennosides 8.6 mg-docusate sodium 2 tab-cap PO BID 06/26/24 08/23/24 50 mg tablet (Senna with Docusate Sodium) celecoxib 100 mg capsule (Celebrex) 200 mg (2 x 100 mg) PO BID #30 caps 07/03/24 09/10/24 Held on 09/10/24. Instructions: Pt Stopped/Never Started diphenhydramine-zinc acetate 2 1 applic topical BID PRN PRN #28 07/03/24 09/10/24 %-0.1 % topical cream (Banophen grams Anti-Itch) Held on 09/10/24. Instructions: Pt Stopped/Never Started enoxaparin 30 mg/0.3 mL 30 mg (0.3 mL) subcut Q12H #8.1 mL 07/03/24 09/10/24 subcutaneous syringe Held on 09/10/24. Instructions: Pt Stopped/Never Started hydromorphone 2 mg tablet 2 mg PO Q6H PRN #20 tabs 07/03/24 09/10/24 Held on 09/10/24. Instructions: Pt Stopped/Never Started acetaminophen 500 mg tablet 1,000 mg PO Q6H PRN 08/23/24 09/10/24 hydrocodone 10 mg-acetaminophen 1 tab PO Q6H PRN pain 08/23/24 09/10/24 325 mg tablet Held on 09/10/24. Instructions: Pt Stopped/Never Started mupirocin 2 % topical ointment 1 applic topical TID #15 grams 08/23/24 09/10/24 (Centany) Held on 09/10/24. Instructions: Pt Stopped/Never Started zolpidem 10 mg tablet 10 mg PO QHS PRN insomnia 08/23/24 08/23/24 Previous Rx's ?Medication ?Instructions ?Recorded polyethylene glycol 3350 17 gram 17 g PO DAILY PRN PRN Constipation 11/29/21 oral powder packet #0 ea celecoxib 100 mg capsule (Celebrex) 200 mg (2 x 100 mg) PO BID #30 caps 07/03/24 Held on 09/10/24. Instructions: Pt Stopped/Never Started diphenhydramine-zinc acetate 2 1 applic topical BID PRN PRN #28 07/03/24 %-0.1 % topical cream (Banophen grams Anti-Itch) Held on 09/10/24. Instructions: Pt Stopped/Never Started enoxaparin 30 mg/0.3 mL 30 mg (0.3 mL) subcut Q12H #8.1 mL 07/03/24 subcutaneous syringe Held on 09/10/24. Instructions: Pt Stopped/Never Started hydromorphone 2 mg tablet 2 mg PO Q6H PRN #20 tabs 07/03/24 Held on 09/10/24. Instructions: Pt Stopped/Never Started mupirocin 2 % topical ointment 1 applic topical TID #15 grams 08/23/24 (Centany) Held on 09/10/24. Instructions: Pt Stopped/Never Started Allergies Allergy/AdvReac Type Severity Reaction Status Date / Time amlodipine Allergy Unknown Other (See Verified 08/23/24 09:30 Comment) trazodone Allergy Unknown Other (See Verified 08/23/24 09:30 Comment) budesonide (From Pulmicort) Allergy Other (See Verified 08/23/24 09:30 Comment) benazepril AdvReac Intermediate Swelling/Ed Verified 08/23/24 09:30 nica diazepam AdvReac Intermediate Agitation Verified 08/23/24 09:30 clonidine AdvReac Mild Dry mouth Verified 08/23/24 09:30 lisinopril AdvReac Mild Cough Verified 08/23/24 09:30 losartan AdvReac Mild Cough Verified 08/23/24 09:30 tramadol AdvReac Nauseous Verified 08/23/24 09:30 General Stated Complaint: Fall/Non TraumaCriteria DAYSI: 3 Review of Systems All systems reviewed & are unremarkable except as noted in HPI and below Constitutional Constitutional: Denies chills and Denies fever(s) Cardiovascular Cardiovascular: Denies chest pain and Denies dyspnea Respiratory Respiratory: Denies cough and Denies dyspnea Gastrointestinal Gastrointestinal: Denies abdominal pain, Denies nausea and Denies vomiting Exam Const General: no acute distress Orientation: alert HENME Head: no palpable skull fracture General nose exam: no nasal polyps and septum normal Mouth: moist mucous membranes Eyes General: appearance normal, both eyes and all related structures Neck Neck: normal visual inspection Resp Effort & Inspection: normal respiratory effort and able to speak in complete sentences Cardio Rate: regular rate GI Palpation: soft and nontender Back/Spine/Pelvis Back: no CVA tenderness Thoracic/Lumbar Spine: No thoracic spinal tenderness and No lumbar spinal tenderness Skin General skin exam: no rashes or lesions noted Neuro General: patient alert and patient oriented x3 Extrem General: normal to inspection Psych Mental Status: mental status grossly normal Course Vital Signs Vital signs: Vital Signs Temperature 35.8 C L 09/10/24 13:48 Pulse 92 H 09/10/24 13:48 Respiratory Rate 16 09/10/24 13:48 Blood Pressure 153/65 H 09/10/24 13:48 Pulse Oximetry 98 09/10/24 13:48 Temperature 35.8 C L 09/10/24 13:48 Temperature Source Tympanic 09/10/24 13:48 Pulse 92 H 09/10/24 13:48 Respiratory Rate 16 09/10/24 13:48 Blood Pressure 153/65 H 09/10/24 13:48 Blood Pressure Position Supine 09/10/24 13:48 Pulse Oximetry 98 09/10/24 13:48 Oxygen Delivery Method Room Air 09/10/24 13:48 Oxygen Flow Rate 0 09/10/24 13:48 Pain Level 10 09/10/24 13:48 Comment hips, back, neck 09/10/24 13:48 Medical Decision Making 69-year-old male with a history of alcohol abuse comes in with EMS after he states he was drinking this morning and tripped and fell. He is not sure exactly how long ago but thinks it was 2 to 3 hours ago. He has a small abrasion over the upper part of the nose, it is not of midline, there is no septal hematoma. He is moving all his extremities well. He recently had a right hip fracture that is repaired at [facility] in June and states that pain is right hip since that is not sure if his right hip pain is currently having is new or not. He has full range of motion of the hip without palpable visible deformities and has intact distal sensation and pulses. He has no pain or tenderness elsewhere other than the right lateral hip. I suspect he fell from being intoxicated, will obtain CT head, facial bones and C-spine to evaluate for traumatic injuries and also right hip series. Also check CBC CMP and troponin so my suspicion for ACS is low. He has mild slurring of words otherwise is oriented x 4. Labs remarkable for sodium of 122 and was checked at the end of August and was normal at that time. Suspect beer protomania. Alcohol level is over 300. Patient is stable. He is too weak to even get out of bed without 2-3 people assisting him. I suspect this is related to his alcohol abuse and also his acute hyponatremia. Will discuss with hospitalist about admission. Differential Diagnosis Differential Diagnosis: Fracture, contusion, alcohol intoxication Lab Data Lab results reviewed: Yes I reviewed the patient's lab results. Quality:SDOH Health Related Social Needs: Health related social needs food insecurity transpo insecurity house/econ circumstance daily activities lonely/isolated Health related social needs details 19 Stairs to get into house at home. lives alone in apartment, on Social security, friends have meals a couple times a week, uses [employer] for transportation, Would benefit from meals on wheels, pt would prefer not to have to move due to stairs and cost of apartment PFSH All Active Problems (Updated 09/10/24 @ 17:26 by Edwardo Molina MD) Alcohol intoxication (Acute) Acute hyponatremia (Acute) Contusion of hip, right (Acute) Fall (Acute) Blunt head trauma (Acute) Urinary tract infection (Acute) Cellulitis of right lower leg (Acute) Stage II pressure ulcer of sacral region (Acute) Essential hypertension (Acute) AAA (abdominal aortic aneurysm) (Acute) Deep vein thrombosis (Chronic) Nicotine dependence (Acute) Paroxysmal A-fib (Acute) Acute pulmonary embolus (Acute) Hematoma of right thigh (Acute) Fracture, intertrochanteric, right femur (Acute) Atrial fibrillation with rapid ventricular response (Acute) Acute urinary retention (Acute) Cerebral cortical contusion-no coma (Acute) Fall (Acute) Closed fracture of right hip (Acute) Recurrent epistaxis (Acute) Chronic kidney disease (Chronic) Heart failure with reduced ejection fraction (Acute) Hepatitis C (Chronic) Per H&P: s/p tx. . He had an abc CT earlier this year which showed a normal liver. Normal anion gap metabolic acidosis (Acute) High anion gap metabolic acidosis (Acute) Lactic acidosis (Acute) Coagulopathy (Acute) Leukocytosis (Acute) Hyperphosphatemia (Acute) Hypocalcemia (Acute) Encephalopathy (Acute) Shock circulatory (Acute) Hyperkalemia (Acute) Acute renal failure (Acute) Acute liver failure (Acute) HFrEF (heart failure with reduced ejection fraction) (Acute) Anemia due to blood loss (Acute) Elevated liver enzymes (Acute) Acute posterior epistaxis (Acute) Acute anterior epistaxis (Acute) COPD (chronic obstructive pulmonary disease) (Chronic) Closed right clavicular fracture (Acute ~11/2021) Right shoulder pain (Acute) CHF (congestive heart failure) (Chronic) No-show for appointment (Acute) Left leg weakness (Acute) MCL sprain of right knee (Acute) Alcohol abuse (Chronic) Chest discomfort (Chronic) Acute on chronic diastolic heart failure (Acute) Bilateral pleural effusion (Acute) Falls (Acute) Pulmonary nodule (Acute) Acute respiratory failure with hypoxia (Acute) Pneumonia (Acute) Acute respiratory distress (Acute) Femur fracture, right (Acute) Fracture, rib (Acute) A-fib (Chronic) Laceration of digital nerve of left thumb (Acute) Gastritis and duodenitis (Acute) Medical History JOS (acute kidney injury) Leg edema Cardiogenic shock Tobacco use Back pain Obesity Chronic pain Asthma Adjustment disorder Pain in left wrist Right hip pain Insomnia Medication monitoring encounter History of depression Opioid withdrawal Cataract Blurred vision Patella-femoral syndrome Trochanteric bursitis Knee pain, right Rib pain Hx of viral pneumonia Lumbar radiculopathy Cocaine abuse Lightheadedness Abdominal pain in male Positive urine drug screen Dyspnea on exertion Voiding dysfunction Clavicle pain Arthritis Neck fracture Per pt. states he broke his nevk 5-6 years ago. 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
[2024-09-10 15:05] LABS: Abs Immature Grans 0.05 10^3/uL (0.0-0.06); HCT 46.0 % (40.0-50.0); HGB 16.2 g/dL (13.5-17.5); Immature Grans % 0.7 %; MCH 31.6 pg (27.0-33.0); MCHC 35.2 % (32.0-36.0); MCV 90 fL (80-95); MPV 9.5 fL (8.0-11.0); Platelet Count 250 10^3/uL (130-400); RBC 5.12 10^6/uL (4.36-5.78); RDW 12.1 % (11.8-14.1); RDW-SD 40.2 fL; WBC 7.44 10^3/uL (4.4-10.8)
[2024-09-10 15:21] LABS: ALT 15 U/L (16-63); AST 29 U/L (15-37); Albumin 3.6 g/dL (3.4-5.0); Alkaline Phosphatase 154 U/L (46-116); Anion Gap 10.3 mmol/L (3-11); BUN 5 mg/dL (7-18); Bilirubin, Total 0.6 mg/dL (0.2-1.0); CO2 25.7 mmol/L (21.0-32.0); Calcium 8.5 mg/dL (8.5-10.1); Chloride 86 mmol/L (98-107); Estimated GFR 99.74 (mL/min/1.73m2); Glucose 70 mg/dL (74-106); Magnesium 1.9 mg/dL (1.8-2.4); Potassium 3.5 mmol/L (3.5-5.1); Total Protein 8.7 g/dL (6.4-8.2); Troponin I 16 ng/L (<or=76)
[2024-09-10 15:25] LABS: Sodium 122 mmol/L (136-145)
[2024-09-10 16:31] LABS: Troponin I 13 ng/L (<or=76)
--- NOTE | 2024-09-10 16:45 | W.PM.HP.N ---
Date of service: 09/10/24 Time of Service: 16:45 Assessment and Plan Assessment and plan (1) Acute hyponatremia: Status: Acute Assessment and plan: Fluid restriction1 L per 24 hours NS at 100cc/hr X1 liter Na level at 21:00 and BMP in AM (2) Alcohol intoxication: Status: Acute Assessment and plan: ETOH w/d assessment Phenobarbital 6mg/kg - 40% bolus dose to be given as per [facility] protocole- Call MD if needs to be given Telemetry SPO2 monitoring (3) Contusion of hip, right: Status: Acute Assessment and plan: S/p fall Pain management with PRN tylenol and Ketorolac (4) Fall: Status: Acute Assessment and plan: PT (5) Blunt head trauma: Status: Acute Assessment and plan: No fracture - neurologically non-focal continue to monitor (6) Deep vein thrombosis: Status: Chronic Assessment and plan: Hx of was on Eliquis at home resumed (7) Paroxysmal A-fib: Status: Acute Assessment and plan: On home meds (8) Nicotine dependence: Status: Acute Assessment and plan: NRT (9) Chronic kidney disease: Status: Chronic Assessment and plan: continue to monitor no JOS (10) AAA (abdominal aortic aneurysm): Status: Acute Assessment and plan: Hx of As per CT on 06/14/24- 3.5 cm (11) HFrEF (heart failure with reduced ejection fraction): Status: Acute Assessment and plan: 07/2023 w LVEF 35- 40% continue outpatient management discussed with Dr. Amaya History of Present Illness History of Present Illness Chief Complaint: fall , ETOH withdrawal, hyponatremia, weakness Narrative: This 69 yo male patient with a past medical history of nicotine dependence , Alcohol dependence, COPD, HFrEF, atrial fibrillation on metoprolol,PE, DVT on Eliquis,right hip intratrochanteric fracture s/p ORIF in 06/[address] [facility] with complicated post-op course presents to the emergency department with the chief complaint of fall, alcohol intoxication, moderate right hip pain s/p fall and ambulatory dysfunction.CT Imaging and XR were negative for any actionable / acute findings. Blood work was remarkable for Na 122, ETOH level at 320, glucose 70. As per discussion with ED provider the patient was unable to stand up or ambulate and was admitted to the medical surgical floor for hyponatremia, ambulatory dysfunction , and alcohol withdrawal. The patient denied dizziness , change in vision, chest pain, vomiting, diarrhea( liquid stool stains on right lower leg) or dysuria. The patient reports headache, daily drinking nausea. The patient declined CPR and intubation. Review of Systems All systems reviewed & are unremarkable except as noted in HPI and below PFSH All Active Problems (Updated 09/10/24 @ 18:06 by Renee Liriano APRN) HFrEF (heart failure with reduced ejection fraction) (Acute) Alcohol intoxication (Acute) Acute hyponatremia (Acute) Contusion of hip, right (Acute) Fall (Acute) Blunt head trauma (Acute) Urinary tract infection (Acute) Cellulitis of right lower leg (Acute) Stage II pressure ulcer of sacral region (Acute) Essential hypertension (Acute) AAA (abdominal aortic aneurysm) (Acute) Deep vein thrombosis (Chronic) Nicotine dependence (Acute) Paroxysmal A-fib (Acute) Acute pulmonary embolus (Acute) Hematoma of right thigh (Acute) Fracture, intertrochanteric, right femur (Acute) Atrial fibrillation with rapid ventricular response (Acute) Acute urinary retention (Acute) Cerebral cortical contusion-no coma (Acute) Fall (Acute) Closed fracture of right hip (Acute) Recurrent epistaxis (Acute) Chronic kidney disease (Chronic) Heart failure with reduced ejection fraction (Acute) Hepatitis C (Chronic) Per H&P: s/p tx. . He had an abc CT earlier this year which showed a normal liver. Normal anion gap metabolic acidosis (Acute) High anion gap metabolic acidosis (Acute) Lactic acidosis (Acute) Coagulopathy (Acute) Leukocytosis (Acute) Hyperphosphatemia (Acute) Hypocalcemia (Acute) Encephalopathy (Acute) Shock circulatory (Acute) Hyperkalemia (Acute) Acute renal failure (Acute) Acute liver failure (Acute) HFrEF (heart failure with reduced ejection fraction) (Acute) Anemia due to blood loss (Acute) Elevated liver enzymes (Acute) Acute posterior epistaxis (Acute) Acute anterior epistaxis (Acute) COPD (chronic obstructive pulmonary disease) (Chronic) Closed right clavicular fracture (Acute ~11/2021) Right shoulder pain (Acute) CHF (congestive heart failure) (Chronic) No-show for appointment (Acute) Left leg weakness (Acute) MCL sprain of right knee (Acute) Alcohol abuse (Chronic) Chest discomfort (Chronic) Acute on chronic diastolic heart failure (Acute) Bilateral pleural effusion (Acute) Falls (Acute) Pulmonary nodule (Acute) Acute respiratory failure with hypoxia (Acute) Pneumonia (Acute) Acute respiratory distress (Acute) Femur fracture, right (Acute) Fracture, rib (Acute) A-fib (Chronic) Laceration of digital nerve of left thumb (Acute) Gastritis and duodenitis (Acute) Medical History JOS (acute kidney injury) Leg edema Cardiogenic shock Tobacco use Back pain Obesity Chronic pain Asthma Adjustment disorder Pain in left wrist Right hip pain Insomnia Medication monitoring encounter History of depression Opioid withdrawal Cataract Blurred vision Patella-femoral syndrome Trochanteric bursitis Knee pain, right Rib pain Hx of viral pneumonia Lumbar radiculopathy Cocaine abuse Lightheadedness Abdominal pain in male Positive urine drug screen Dyspnea on exertion Voiding dysfunction Clavicle pain Arthritis Neck fracture Per pt. states he broke his nevk 5-6 years ago. 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) As treatment for proximal humerus fx (DOI: 11/11/2021) History of surgery on wrist History of cataract surgery History of cataract surgery History of hand surgery Social History Smoking/Tobacco Use Status: Current every day Tobacco Type: cigarettes Smoking risk assessment performed?: Yes Alcohol Intake: current Alcohol Intake frequency: a few times a week Drug use: Never Substance use type: does not use and unknown Housing: apartment Current gender identity: male Do you feel safe at home: Yes Do you feel safe in your relationship?: Yes Additional Social history: lives alone Meds Allergies and Home Medications Allergies Allergy/AdvReac Type Severity Reaction Status Date / Time amlodipine Allergy Unknown Other (See Verified 08/23/24 09:30 Comment) trazodone Allergy Unknown Other (See Verified 08/23/24 09:30 Comment) budesonide (From Pulmicort) Allergy Other (See Verified 08/23/24 09:30 Comment) benazepril AdvReac Intermediate Swelling/Ed Verified 08/23/24 09:30 nica diazepam AdvReac Intermediate Agitation Verified 08/23/24 09:30 clonidine AdvReac Mild Dry mouth Verified 08/23/24 09:30 lisinopril AdvReac Mild Cough Verified 08/23/24 09:30 losartan AdvReac Mild Cough Verified 08/23/24 09:30 tramadol AdvReac Nauseous Verified 08/23/24 09:30 Home Medications ?Medication ?Instructions ?Recorded ?Confirmed ?Type citalopram 20 mg tablet 20 mg PO QAM 11/23/21 09/10/24 History Held on 09/10/24. Instructions: Pt Stopped/Never Started cyclobenzaprine 10 mg tablet 10 mg PO TID PRN PRN 11/23/21 09/10/24 History Held on 09/10/24. Instructions: Pt Stopped/Never Started pantoprazole 40 mg tablet,delayed 40 mg PO DAILY 11/23/21 09/10/24 History release Held on 09/10/24. Instructions: Pt Stopped/Never Started topiramate 50 mg tablet 150 mg PO DAILY 11/23/21 09/10/24 History gabapentin 300 mg capsule 300 mg PO TID 08/23/23 09/10/24 History Held on 09/10/24. Instructions: Pt Stopped/Never Started tamsulosin 0.4 mg capsule 0.4 mg PO DAILY 08/23/23 09/10/24 History thiamine HCl (vitamin B1) 100 mg 100 mg PO DAILY 08/23/23 09/10/24 History tablet ferrous gluconate 324 mg (37.5 mg 324 mg PO Q48H 11/21/23 09/10/24 History iron) tablet Held on 09/10/24. Instructions: Pt Stopped/Never Started magnesium oxide 400 mg PO BID 11/21/23 09/10/24 History Held on 09/10/24. Instructions: Pt Stopped/Never Started metoprolol succinate 25 mg 50 mg PO DAILY 11/21/23 09/10/24 History tablet,extended release 24 hr Held on 09/10/24. Instructions: Pt Stopped/Never Started albuterol sulfate 90 mcg/actuation 2 inh inhalation Q4H PRN PRN 06/26/24 09/10/24 History aerosol inhaler Held on 09/10/24. Instructions: Pt Stopped/Never Started atorvastatin 80 mg tablet (Lipitor) 80 mg PO QPM 06/26/24 09/10/24 History Held on 09/10/24. Instructions: Pt Stopped/Never Started digoxin 125 mcg (0.125 mg) tablet 125 mcg PO DAILY 06/26/24 09/10/24 History (Digitek) Held on 09/10/24. Instructions: Prescription Finished lidocaine 5 % topical patch See Rx Instructions topical 06/26/24 09/10/24 History Held on 09/10/24. .COMPLEX Instructions: Pt Stopped/Never Started melatonin 3 mg tablet 6 mg PO HS PRN PRN 06/26/24 09/10/24 History Held on 09/10/24. Instructions: Pt Stopped/Never Started multivitamin 1 tab PO DAILY 06/26/24 09/10/24 History Held on 09/10/24. Instructions: Pt Stopped/Never Started nicotine 14 mg/24 hr daily 1 patch transdermal DAILY 06/26/24 09/10/24 History transdermal patch Held on 09/10/24. Instructions: Pt Stopped/Never Started celecoxib 100 mg capsule (Celebrex) 200 mg (2 x 100 mg) PO BID #30 caps 07/03/24 09/10/24 Rx Held on 09/10/24. Instructions: Pt Stopped/Never Started diphenhydramine-zinc acetate 2 1 applic topical BID PRN PRN #28 07/03/24 09/10/24 Rx %-0.1 % topical cream (Banophen grams Anti-Itch) Held on 09/10/24. Instructions: Pt Stopped/Never Started enoxaparin 30 mg/0.3 mL 30 mg (0.3 mL) subcut Q12H #8.1 mL 07/03/24 09/10/24 Rx subcutaneous syringe Held on 09/10/24. Instructions: Pt Stopped/Never Started hydromorphone 2 mg tablet 2 mg PO Q6H PRN #20 tabs 07/03/24 09/10/24 Rx Held on 09/10/24. Instructions: Pt Stopped/Never Started acetaminophen 500 mg tablet 1,000 mg PO Q6H PRN 08/23/24 09/10/24 History hydrocodone 10 mg-acetaminophen 1 tab PO Q6H PRN pain 08/23/24 09/10/24 History 325 mg tablet Held on 09/10/24. Instructions: Pt Stopped/Never Started mupirocin 2 % topical ointment 1 applic topical TID #15 grams 08/23/24 09/10/24 Rx (Centany) Held on 09/10/24. Instructions: Pt Stopped/Never Started Exam Narrative Exam Narrative: 69 yo male appearing older than age w/o acute distress , AOx4, heart RRR, scattered rhonchi clearing cough - diffused expiratory wheezing left lung field, abdomen soft, non-tender, non-distended, no CVA tenderness, moves all 4 ext Results Labs 09/10/24 14:52 09/10/24 14:52 Labs: Laboratory Results - last 24 hr 09/10/24 09/10/24 14:52 16:00 WBC 7.44 RBC 5.12 Hgb 16.2 Hct 46.0 MCV 90 MCH 31.6 MCHC 35.2 RDW 12.1 Plt Count 250 MPV 9.5 Immature Gran % 0.7 Neutrophils % 69.6 Lymphocytes % 22.7 Monocytes % 4.3 Eosinophils % 2.2 Basophils % 0.5 Nucleated RBC % 0.0 Absolute Neutrophils 5.18 Absolute Lymphocytes 1.69 Absolute Monocytes 0.32 Absolute Eosinophils 0.16 Absolute Basophils 0.04 Sodium 122 L* Potassium 3.5 Chloride 86 L Carbon Dioxide 25.7 Anion Gap 10.3 BUN 5 L Creatinine 0.7 Est GFR (CKD-EPI 2020) 99.74 Glucose 70 L Calcium 8.5 Magnesium 1.9 Total Bilirubin 0.6 AST 29 ALT 15 L Alkaline Phosphatase 154 H Troponin I 16 13 Total Protein 8.7 H Albumin 3.6 Ethyl Alcohol 320.8 H Last Vital Signs Temp 35.8 C L 09/10/24 13:48 Pulse 92 H 09/10/24 13:48 Resp 16 09/10/24 13:48 BP 153/65 H 09/10/24 13:48 Pulse Ox 98 09/10/24 13:48 Time Spent Time spent with Patient: >75 minutes Time was spent: preparing to see the patient(eg.review tests), obtaining and/or reviewing separately otained hiistory, ordering medications,tests, procedures, referring, communicating with other health career technical education instructor, indepentently interpreting results, counseling the patient and care coordination
[2024-09-10] MEDS: Normal Saline 250 ML IV (17:17)
[2024-09-11] VITALS (96 sets, daily range): BP systolic 117–200; BP diastolic 83–124; PULSE 60–141; RESP 11–33; TEMP 35.4–36.7; O2SAT 90–100
[2024-09-11] MEDS: Acetaminophen 500 MG TAB 1000 MG PO (01:04)
[2024-09-11] MEDS: PHENobarbital 180 MG in Normal Saline 50 ML 100 MG IVPB (03:43)
[2024-09-11] MEDS: Ondansetron 4 MG/2 ML VIAL IVP (03:44)
--- NOTE | 2024-09-11 03:45 | NUR.NOTE ---
Nursing Note: RN called MD to change the phenobarb order as it was not the usual order set and also asked for PRN nausea meds. RN adminstered meds. See MAR. Pt placed on cloud engagement partner when phenobarb started.
[2024-09-11] MEDS: PHENobarbital 140 MG in Normal Saline 50 ML 100 MG IVPB ×2 (07:56→10:26)
[2024-09-11] MEDS: Normal Saline 1,000 ML 100 ML IV (07:57)
[2024-09-11 08:15] LABS: ALT 15 U/L (16-63); AST 27 U/L (15-37); Albumin 3.6 g/dL (3.4-5.0); Alkaline Phosphatase 150 U/L (46-116); Anion Gap 8.9 mmol/L (3-11); BUN 7 mg/dL (7-18); Bilirubin, Total 1.0 mg/dL (0.2-1.0); CO2 29.1 mmol/L (21.0-32.0); Calcium 9.1 mg/dL (8.5-10.1); Chloride 96 mmol/L (98-107); Estimated GFR 95.80 (mL/min/1.73m2); Glucose 94 mg/dL (74-106); Magnesium 2.0 mg/dL (1.8-2.4); Potassium 3.3 mmol/L (3.5-5.1); Sodium 134 mmol/L (136-145); Total Protein 8.6 g/dL (6.4-8.2)
[2024-09-11] MEDS: Thiamine 100 MG TAB PO (08:17)
[2024-09-11] MEDS: Multivitamin TAB 1 TAB PO (08:17)
[2024-09-11] MEDS: Ferrous Gluconate 324 MG TAB PO (08:17)
[2024-09-11] MEDS: Digoxin 0.125 MG TAB PO (08:17)
[2024-09-11] MEDS: Gabapentin 300 MG CAP PO ×3 (08:18→20:04)
[2024-09-11] MEDS: Celecoxib 200 MG CAP PO ×2 (08:18→20:04)
[2024-09-11] MEDS: Magnesium Oxide 400 MG TAB PO ×2 (08:18→20:04)
[2024-09-11] MEDS: Enoxaparin 40 MG/0.4 ML SYR SC (08:18)
[2024-09-11 08:22] LABS: Abs Immature Grans 0.06 10^3/uL (0.0-0.06); HCT 48.1 % (40.0-50.0); HGB 16.5 g/dL (13.5-17.5); Immature Grans % 0.9 %; MCH 30.8 pg (27.0-33.0); MCHC 34.3 % (32.0-36.0); MCV 90 fL (80-95); MPV 10.5 fL (8.0-11.0); Platelet Count 230 10^3/uL (130-400); RBC 5.35 10^6/uL (4.36-5.78); RDW 12.0 % (11.8-14.1); RDW-SD 39.6 fL; WBC 6.86 10^3/uL (4.4-10.8)
[2024-09-11] MEDS: Folic Acid 1 MG TAB PO (08:32)
[2024-09-11] MEDS: Nicotine 14 MG/24 HR PATCH TD (08:37)
--- NOTE | 2024-09-11 11:07 | W.PM.PROGNOT ---
Date of Service Date of service: 09/11/24 Time of Service: 11:07 Assessment and Plan Assessment and plan (1) Acute hyponatremia: Status: Acute Assessment and plan: Na 134 Hypotonic Fluid restriction1 L per 24 hours Stop NS at 100cc/hr X1 liter BMP in AM (2) Alcohol intoxication: Status: Acute Assessment and plan: Ongoing ETOH w/d assessment Ethyl level on admit >300 Phenobarbital 6mg/kg - loading dose completed as per [facility] -[facility] protocole- Call MD if limit has been reached with PRN dosing Ongoing telemetry, VS and SPO2 monitoring as per protocol (3) Contusion of hip, right: Status: Acute Assessment and plan: S/p fall Pain management with PRN tylenol hydromorphone and scheduled opt celebrex Also on opt neurontin dosing (4) Fall: Status: Acute Assessment and plan: Continue physical therapy (5) Blunt head trauma: Status: Acute Assessment and plan: No exacerbation - on admission no fracture a sper imaging - neurologically non-focal Will continue to monitor (6) Atrial fibrillation with rapid ventricular response: Status: Acute Assessment and plan: IN A-fib with RVR early AM - does have a history as per point 7 IV metoprolol 5 then oral AV beta- clyde (7) Paroxysmal A-fib: Status: Acute Assessment and plan: On home meds (8) Deep vein thrombosis: Status: Chronic Assessment and plan: Hx of was on Eliquis as per [facility] and d/c from [facility] on 07/03/24 Continue home dose (9) Nicotine dependence: Status: Acute Assessment and plan: PRN NRT (10) Chronic kidney disease: Status: Chronic Assessment and plan: no exacerbation -ongoing monitor no JOS (11) AAA (abdominal aortic aneurysm): Status: Acute Assessment and plan: Hx of As per CT on 06/14/24- 3.5 cm Opt f/u unsless symptomatic (12) HFrEF (heart failure with reduced ejection fraction): Status: Acute Assessment and plan: 07/2023 w LVEF 35- 40% continue outpatient management (13) Discharge planning issues: Status: Acute Assessment and plan: Discussion with PCP Dr. Guzman re: LTC VS SNF reahab d/t physical environment, ETOH and recurrent falls CM to f/u- with possibility for referrals to be sent for offers Patient is not against the idea discussed with Dr. Amaya Subjective Subjective Patient reports: still having pain, tolerating liquids well, tolerating a regular diet and voiding w/o difficulty; denies diarrhea, vomiting, shortness of breath or fever Exam Narrative Exam Narrative: Pleasant 69 yo male appearing older than age w/o acute distress , AOx3, heart irregular a-trial fibrillation HR 102 on manager monitoring , scattered rhonchi clearing cough - no wheezing , abdomen soft, non-tender, non-distended, moves all 4 ext Objective Last Vital Signs Temp 35.8 C L 09/10/24 13:48 Pulse 102 H 09/11/24 10:27 Resp 27 H 09/11/24 10:27 BP 176/100 H 09/11/24 10:27 Pulse Ox 96 09/11/24 10:27 Laboratory Results - last 24 hr 09/10/24 09/10/24 09/10/24 14:52 16:00 17:05 WBC 7.44 RBC 5.12 Hgb 16.2 Hct 46.0 MCV 90 MCH 31.6 MCHC 35.2 RDW 12.1 Plt Count 250 MPV 9.5 Immature Gran % 0.7 Neutrophils % 69.6 Lymphocytes % 22.7 Monocytes % 4.3 Eosinophils % 2.2 Basophils % 0.5 Nucleated RBC % 0.0 Absolute Neutrophils 5.18 Absolute Lymphocytes 1.69 Absolute Monocytes 0.32 Absolute Eosinophils 0.16 Absolute Basophils 0.04 Sodium 122 L* Potassium 3.5 Chloride 86 L Carbon Dioxide 25.7 Anion Gap 10.3 BUN 5 L Creatinine 0.7 Est GFR (CKD-EPI 2020) 99.74 Glucose 70 L Calcium 8.5 Magnesium 1.9 Total Bilirubin 0.6 AST 29 ALT 15 L Alkaline Phosphatase 154 H Troponin I 16 13 Cancelled Total Protein 8.7 H Albumin 3.6 Ethyl Alcohol 320.8 H 09/11/24 07:27 WBC 6.86 RBC 5.35 Hgb 16.5 Hct 48.1 MCV 90 MCH 30.8 MCHC 34.3 RDW 12.0 Plt Count 230 MPV 10.5 Immature Gran % 0.9 Neutrophils % 74.6 Lymphocytes % 12.7 Monocytes % 9.0 Eosinophils % 2.2 Basophils % 0.6 Nucleated RBC % 0.0 Absolute Neutrophils 5.12 Absolute Lymphocytes 0.87 L Absolute Monocytes 0.62 Absolute Eosinophils 0.15 Absolute Basophils 0.04 Sodium 134 L D Potassium 3.3 L Chloride 96 L Carbon Dioxide 29.1 Anion Gap 8.9 BUN 7 Creatinine 0.8 Est GFR (CKD-EPI 2020) 95.80 Glucose 94 Calcium 9.1 Magnesium 2.0 Total Bilirubin 1.0 AST 27 ALT 15 L Alkaline Phosphatase 150 H Troponin I Total Protein 8.6 H Albumin 3.6 Ethyl Alcohol PAWSS Have you Been Recently Intoxicated or Drunk Within the Last 30 days?: Yes Have you Ever Experienced Previous Episodes of Alcohol Withdrawal?: No Have you ever Experienced Withdrawal Seizures?: No Have you ever Experienced Delirium Tremens(DT)s?: No Have you ever Experienced Blackouts?: Yes Have you ever Combined Alcohol with other Downers within the last 90 days?: No Have you ever Combined Alcohol with any other Substance of Abuse during the last 90 days?: No Positive Blood Alcohol level on Presentation? [PCS.BAL]: Yes Evidence of Increased Autonomic Activity (i.e. HR>120, tremor, sweating, agitation, nausea)?: No Result: 3 Time Spent with Patient Time Spent with Patient: >50 minutes Time was spent: preparing to see the patient(eg.review tests), obtaining and/or reviewing separately otained hiistory, ordering medications,tests, procedures, referring, communicating with other health acute care physical therapist, indepentently interpreting results, counseling the patient and care coordination
[2024-09-11] MEDS: Metoprolol 5 MG/5 ML VIAL IVP (11:49)
[2024-09-11] MEDS: Citalopram 20 MG TAB PO (11:52)
[2024-09-11] MEDS: HYDROmorphone 2 MG TAB PO ×2 (12:09→18:20)
[2024-09-11] MEDS: Albuterol 2.5 MG/3 ML INH SOLN VIAL UPD (12:10)
[2024-09-11] MEDS: Lidocaine 5% Patch 1 PATCH TP ×2 (12:10→16:24)
[2024-09-11] MEDS: Metoprolol CR 50 MG TABCR PO (12:10)
[2024-09-11] MEDS: Cyclobenzaprine 10 MG TAB PO ×2 (12:10→21:00)
--- NOTE | 2024-09-11 13:40 | INITIAL_ITS ---
Date of service: 09/11/24 Time of Service: 13:41 Care Management Initial Assmt Initial Assessment Reason for Hospitalization: hyponatremia, ETOH withdrawal, fall Functional Status/Living Situation Patient Presentation: Geovani was sitting up in bed when CM met with him. He stated that he is doing ok today; he reported that he presented after a fall at home, and stated that he is having hip pain, which is from his previous surgery. He stated that he has HH RN and PT coming into the house, and that is going well. Per report, he will be seen by PT today, who will make recommendations for his next level of care. Geovani stated that he would be willing to go to SNF again, if recommended. He had a short term stay at [facility] in June, which he didn't share any complaints about, and he would be willing to return, if needed. CM will continue to follow. Town of Residence: [facility] Resides with: Alone Significant Other/Family: Out of area Employment Status: Retired Instrumental Activities of Daily Living (ADLs): Independent Medications Medication Management: No Issues/Barriers identified Physical Functioning/Mobility Assistive Device: FWW, SPC Advance Directives Advance Directives: Do you have an Advance Directive: N , 15:28 AD On File at [facility]: N 12/08/19, 15:28 Date Asked 09/10/24 09/10/24, 13:45 AD Date Reviewed COLST On File at [facility] No 02/09/21, 20:51 COLST Date Scanned Code Status Resuscitation Status DNR/DNI Insurance Coverage/Financial Issues Insurance: [facility] Care Team Visit Care Team Role Provider Type Renee Liriano APRN MD [facility] STAFF PHYSICIAN Sherri Guzman MD Primary Care Provider [facility] ST[facility] PHYSICIAN InPatient Mayur Crawford Other Providers OTHER Edwardo Molina MD Emergency Provider [facility] ST[facility] PHYSICIAN Harinder Amaya MD Admit Provider [facility] ST[facility]FF PHYSICIAN Attending Provider Discharge Potential Discharge Needs: PCP F/U Appt Anticipated Barriers to Discharge: None Identified Patient/Family Education Needs: Review discharge instructions, discuss Ask Me Three Transportation: RCT Plan: Anticipate Derrick will return home when medically cleared with a resumption of HH RN, PT. He is having a PT consult today to help determine the next level of care needed. He will follow up with his PCP and discharge plan of care. CM will continue to follow. Social Determinants of Health Screening Will the Patient Participate in the Screening?: Declined to provide PFSH All Active Problems (Updated 09/10/24 @ 18:06 by Renee Liriano APRN) HFrEF (heart failure with reduced ejection fraction) (Acute) Alcohol intoxication (Acute) Acute hyponatremia (Acute) Contusion of hip, right (Acute) Fall (Acute) Blunt head trauma (Acute) Urinary tract infection (Acute) Cellulitis of right lower leg (Acute) Stage II pressure ulcer of sacral region (Acute) Essential hypertension (Acute) AAA (abdominal aortic aneurysm) (Acute) Deep vein thrombosis (Chronic) Nicotine dependence (Acute) Paroxysmal A-fib (Acute) Acute pulmonary embolus (Acute) Hematoma of right thigh (Acute) Fracture, intertrochanteric, right femur (Acute) Atrial fibrillation with rapid ventricular response (Acute) Acute urinary retention (Acute) Cerebral cortical contusion-no coma (Acute) Fall (Acute) Closed fracture of right hip (Acute) Recurrent epistaxis (Acute) Chronic kidney disease (Chronic) Heart failure with reduced ejection fraction (Acute) Hepatitis C (Chronic) Per H&P: s/p tx. . He had an abc CT earlier this year which showed a normal liver. Normal anion gap metabolic acidosis (Acute) High anion gap metabolic acidosis (Acute) Lactic acidosis (Acute) Coagulopathy (Acute) Leukocytosis (Acute) Hyperphosphatemia (Acute) Hypocalcemia (Acute) Encephalopathy (Acute) Shock circulatory (Acute) Hyperkalemia (Acute) Acute renal failure (Acute) Acute liver failure (Acute) HFrEF (heart failure with reduced ejection fraction) (Acute) Anemia due to blood loss (Acute) Elevated liver enzymes (Acute) Acute posterior epistaxis (Acute) Acute anterior epistaxis (Acute) COPD (chronic obstructive pulmonary disease) (Chronic) Closed right clavicular fracture (Acute ~11/2021) Right shoulder pain (Acute) CHF (congestive heart failure) (Chronic) No-show for appointment (Acute) Left leg weakness (Acute) MCL sprain of right knee (Acute) Alcohol abuse (Chronic) Chest discomfort (Chronic) Acute on chronic diastolic heart failure (Acute) Bilateral pleural effusion (Acute) Falls (Acute) Pulmonary nodule (Acute) Acute respiratory failure with hypoxia (Acute) Pneumonia (Acute) Acute respiratory distress (Acute) Femur fracture, right (Acute) Fracture, rib (Acute) A-fib (Chronic) Laceration of digital nerve of left thumb (Acute) Gastritis and duodenitis (Acute) Medical History JOS (acute kidney injury) Leg edema Cardiogenic shock Tobacco use Back pain Obesity Chronic pain Asthma Adjustment disorder Pain in left wrist Right hip pain Insomnia Medication monitoring encounter History of depression Opioid withdrawal Cataract Blurred vision Patella-femoral syndrome Trochanteric bursitis Knee pain, right Rib pain Hx of viral pneumonia Lumbar radiculopathy Cocaine abuse Lightheadedness Abdominal pain in male Positive urine drug screen Dyspnea on exertion Voiding dysfunction Clavicle pain Arthritis Neck fracture Per pt. states he broke his nevk 5-6 years ago. 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) As treatment for proximal humerus fx (DOI: 11/11/2021) History of surgery on wrist History of cataract surgery History of cataract surgery History of hand surgery Social History Smoking/Tobacco Use Status: Current every day Tobacco Type: cigarettes Smoking risk assessment performed?: Yes Alcohol Intake: current Alcohol Intake frequency: 3 or more drinks per day Alcohol type: beer Drug use: Current Sobriety Substance use type: does not use and unknown Housing: apartment Current gender identity: male Do you feel safe at home: Yes Do you feel safe in your relationship?: Yes Additional Social history: lives alone
[2024-09-11] MEDS: Potassium Chloride 20 MEQ TABCR 40 MEQ PO (14:59)
--- NOTE | 2024-09-11 16:21 | W.PC.ACHO ---
Registration Status: ADM IN Primary Language: Preferred Language: Irish ED Information & Data Chief Complaint Fall/Non TraumaCriteria 09/11/24 02:04 Chief Complaint Fall/Non TraumaCriteria 09/10/24 14:09 Triage Note Pt unsure why he is here. 09/10/24 13:48 Home health nurse called after finding patient down at home. Unknown if he hit head, unknown how long he was down. Pt says he was drinking beer today. Medical / Surgical History (Last Reviewed 06/14/24 @ 14:56 by Edouard Molina MD) Protein malnutrition JOS (acute kidney injury) Leg edema Cardiogenic shock Tobacco use Back pain Obesity Chronic pain Asthma Adjustment disorder Pain in left wrist Right hip pain Insomnia Medication monitoring encounter History of depression Opioid withdrawal Cataract Blurred vision Patella-femoral syndrome Trochanteric bursitis Knee pain, right Rib pain Hx of viral pneumonia Lumbar radiculopathy Cocaine abuse Lightheadedness Abdominal pain in male Positive urine drug screen Dyspnea on exertion Voiding dysfunction Clavicle pain Arthritis Neck fracture Depression Hypertension Upper GI bleed Varices of esophagus determined by endoscopy Alcohol withdrawal (Last Reviewed 06/14/24 @ 14:56 by Edouard Molina MD) 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) History of surgery on wrist History of cataract surgery History of cataract surgery History of hand surgery Most Recent Vital Signs Temperature 36.5 C 09/11/24 15:47 Temperature Source Temporal Artery Scan 09/11/24 15:47 Pulse 82 09/11/24 15:47 Pulse Rhythm Irregular 09/11/24 14:01 Pulse 97 H 09/11/24 13:20 Respiratory Rate 16 09/11/24 15:47 Respiratory Effort Normal, Non-Labored 09/11/24 14:01 Respiratory Depth Normal 09/11/24 14:01 Respiratory Pattern Normal 09/11/24 14:01 Blood Pressure 128/90 09/11/24 15:47 Blood Pressure Mean 102 09/11/24 15:47 Blood Pressure Position Supine 09/10/24 13:48 Pulse Oximetry 97 09/11/24 15:47 Oxygen Delivery Method Room Air 09/11/24 15:47 Oxygen Flow Rate 0 09/11/24 15:47 Pain Level 10 09/11/24 15:47 Comment hips, back, neck 09/10/24 13:48 Allergies amlodipine Allergy (Unknown, Verified 08/23/24 09:30) Other (See Comment) trazodone Allergy (Unknown, Verified 08/23/24 09:30) Other (See Comment) budesonide (From Pulmicort) Allergy (Verified 08/23/24 09:30) Other (See Comment) benazepril Adverse Reaction (Intermediate, Verified 08/23/24 09:30) Swelling/Edema lower leg RH diazepam Adverse Reaction (Intermediate, Verified 08/23/24 09:30) Agitation clonidine Adverse Reaction (Mild, Verified 08/23/24 09:30) Dry mouth lisinopril Adverse Reaction (Mild, Verified 08/23/24 09:30) Cough losartan Adverse Reaction (Mild, Verified 08/23/24 09:30) Cough tramadol Adverse Reaction (Verified 08/23/24 09:30) Nauseous Active Medications Generic Name Dose Route Start Last Admin Trade Name Freq PRN Reason Stop Dose Admin Albuterol Sulfate 2.5 mg 09/11/24 00:57 09/11/24 12:10 Albuterol 2.5 Mg/3 Ml Inh Soln Vial UPD 2.5 mg Q2H PRN PRN Administration Celecoxib 200 mg 09/11/24 08:30 09/11/24 08:18 Celecoxib 200 Mg Cap PO 200 mg BID PRICILLA Administration Citalopram Hydrobromide 20 mg 09/11/24 11:10 09/11/24 11:52 Citalopram 20 Mg Tab PO 20 mg QAM PRICILLA Administration Cyclobenzaprine HCl 10 mg 09/11/24 00:57 09/11/24 12:10 Cyclobenzaprine 10 Mg Tab PO 10 mg TID PRN PRN Administration Digoxin 0.125 mg 09/11/24 08:30 09/11/24 08:17 Digoxin 0.125 Mg Tab PO 0.125 mg DAILY PRICILLA Administration Ferrous Gluconate 324 mg 09/11/24 09:00 09/11/24 08:17 Ferrous Gluconate 324 Mg Tab PO 324 mg Q48H PRICILLA Administration Folic Acid 1 mg 09/11/24 08:30 09/11/24 08:32 Folic Acid 1 Mg Tab PO 09/17/24 08:31 1 mg QAM PRICILLA Administration Gabapentin 300 mg 09/11/24 00:57 09/11/24 14:59 Gabapentin 300 Mg Cap PO 300 mg TID PRICILLA Administration Hydromorphone HCl 2 mg 09/11/24 11:17 09/11/24 12:09 Hydromorphone 2 Mg Tab PO 2 mg Q6H PRN PRN Administration Magnesium Oxide 400 mg 09/11/24 08:30 09/11/24 08:18 Magnesium Oxide 400 Mg Tab PO 400 mg BID PRICILLA Administration Metoprolol Succinate 50 mg 09/11/24 12:00 09/11/24 12:10 Metoprolol Cr 50 Mg Tabcr PO 50 mg DAILY PRICILLA Administration Multivitamins 1 tab 09/11/24 08:30 09/11/24 08:17 Multivitamin Tab PO 1 tab DAILY PRICILLA Administration Nicotine 14 mg 09/11/24 08:30 09/11/24 08:37 Nicotine 14 Mg/24 Hr Patch TD 14 mg DAILY PRICILLA Administration Ondansetron HCl 4 mg 09/11/24 03:20 09/11/24 03:44 Ondansetron 4 Mg/2 Ml Vial IVP 4 mg Q4H PRN PRN Administration Potassium Chloride 40 meq 09/11/24 14:10 09/11/24 14:59 Potassium Chloride 20 Meq Tabcr PO 40 meq DAILY PRICILLA Administration Sodium Chloride 0 ml 09/10/24 20:00 09/11/24 08:29 Normal Saline Flush 10 Ml Syr IVP Not Given BID PRICILLA Thiamine HCl 100 mg 09/11/24 08:30 09/11/24 08:17 Thiamine 100 Mg Tab PO 09/17/24 08:31 100 mg QAM PRICILLA Administration IV IV Catheter Type [Left Forearm Saline Lock ] IV Catheter Type [Right Saline Lock Antecubital] IV Catheter Gauge [Left 20 Forearm] IV Catheter Gauge [Right 20 Antecubital] Diet Orders Category Date Time Status Heart Healthy Eating [DIET] Nutrition 09/11/24 Dinner Active Diagnostics 09/11/24 09/11/24 09/10/24 Range/Units 10:17 07:27 17:05 WBC 6.86 (4.4-10.8) 10^3/uL RBC 5.35 (4.36-5.78) 10^6/uL Hgb 16.5 (13.5-17.5) g/dL Hct 48.1 (40.0-50.0) % MCV 90 (80-95) fL MCH 30.8 (27.0-33.0) pg MCHC 34.3 (32.0-36.0) % RDW 12.0 (11.8-14.1) % Plt Count 230 (130-400) 10^3/uL MPV 10.5 (8.0-11.0) fL Immature Gran % 0.9 % Neutrophils % 74.6 % Lymphocytes % 12.7 % Monocytes % 9.0 % Eosinophils % 2.2 % Basophils % 0.6 % Nucleated RBC % 0.0 (0.0-0.3) % Absolute Neutrophils 5.12 (1.2-6.7) 10^3/uL Absolute Lymphocytes 0.87 L (1.2-3.4) 10^3/uL Absolute Monocytes 0.62 (0.1-0.8) 10^3/uL Absolute Eosinophils 0.15 (0.0-0.7) 10^3/uL Absolute Basophils 0.04 (0.0-0.2) 10^3/uL Sodium 134 L D (136-145) mmol/L Potassium 3.3 L (3.5-5.1) mmol/L Chloride 96 L (98-107) mmol/L Carbon Dioxide 29.1 (21.0-32.0) mmol/L Anion Gap 8.9 (3-11) mmol/L BUN 7 (7-18) mg/dL Creatinine 0.8 (0.70-1.30) mg/dL Est GFR (CKD-EPI 2020) 95.80 (mL/min/1.73m2) Glucose 94 (74-106) mg/dL Calcium 9.1 (8.5-10.1) mg/dL Magnesium 2.0 (1.8-2.4) mg/dL Total Bilirubin 1.0 (0.2-1.0) mg/dL AST 27 (15-37) U/L ALT 15 L (16-63) U/L Alkaline Phosphatase 150 H (46-116) U/L Troponin I Cancelled (<or=76) ng/L Total Protein 8.6 H (6.4-8.2) g/dL Albumin 3.6 (3.4-5.0) g/dL Urine Color Pending Urine Clarity Pending Urine pH Pending Ur Specific Navarro Pending Urine Protein Pending Urine Ketones Pending Urine Blood Pending Urine Nitrite Pending Urine Bilirubin Pending Urine Urobilinogen Pending Ur Leukocyte Esterase Pending Urine Glucose Pending 09/10/24 Range/Units 16:00 WBC (4.4-10.8) 10^3/uL RBC (4.36-5.78) 10^6/uL Hgb (13.5-17.5) g/dL Hct (40.0-50.0) % MCV (80-95) fL MCH (27.0-33.0) pg MCHC (32.0-36.0) % RDW (11.8-14.1) % Plt Count (130-400) 10^3/uL MPV (8.0-11.0) fL Immature Gran % % Neutrophils % % Lymphocytes % % Monocytes % % Eosinophils % % Basophils % % Nucleated RBC % (0.0-0.3) % Absolute Neutrophils (1.2-6.7) 10^3/uL Absolute Lymphocytes (1.2-3.4) 10^3/uL Absolute Monocytes (0.1-0.8) 10^3/uL Absolute Eosinophils (0.0-0.7) 10^3/uL Absolute Basophils (0.0-0.2) 10^3/uL Sodium (136-145) mmol/L Potassium (3.5-5.1) mmol/L Chloride (98-107) mmol/L Carbon Dioxide (21.0-32.0) mmol/L Anion Gap (3-11) mmol/L BUN (7-18) mg/dL Creatinine (0.70-1.30) mg/dL Est GFR (CKD-EPI 2020) (mL/min/1.73m2) Glucose (74-106) mg/dL Calcium (8.5-10.1) mg/dL Magnesium (1.8-2.4) mg/dL Total Bilirubin (0.2-1.0) mg/dL AST (15-37) U/L ALT (16-63) U/L Alkaline Phosphatase (46-116) U/L Troponin I 13 (<or=76) ng/L Total Protein (6.4-8.2) g/dL Albumin (3.4-5.0) g/dL Urine Color Urine Clarity Urine pH Ur Specific Navarro Urine Protein Urine Ketones Urine Blood Urine Nitrite Urine Bilirubin Urine Urobilinogen Ur Leukocyte Esterase Urine Glucose Jftfu-[id number] Documentation Fingerstick Glucose Start: 09/10/24 17:16 Freq: .ACHS Status: Active Protocol: Activity Type Activity Date Activity User E-sign Co-sign Detail Recorded Client Recorded Date Recorded By Document 09/11/24 15:51 BKG DAEMON(3) [id number] 09/11/24 15:51 BKG DAEMON(4) Intake and Output - 24 Hour Total 09/10/24 13:37 thru 09/11/24 15:47 Intake Total 1307.5384 Output Total 3600 Balance -2292.4616 Weight 77.11 kg Intake: IV 853.5384 Oral 454 Output: Urine 3600 Other: Urine Appearance Clear # Voids 4 # Bowel Movements 1 Falls Risk Assessment History of Falls Admit Due to Fall 09/11/24 14:01 Contributing Factors Impairments,Medications 09/11/24 14:01 Ambulatory Aids Uses ambulatory device 09/11/24 14:01 Tubes/Lines W/no contributing factors 09/11/24 14:01 Gait Evaluation W/no contributing factors 09/11/24 14:01 Cognition No cognitive impairment 09/11/24 14:01 Fall Total Score 66 09/11/24 14:01 Level of Risk High Risk 09/11/24 14:01 Problems (Last Reviewed 06/14/24 @ 14:56 by Edouard Molina MD) HFrEF (heart failure with reduced ejection fraction) (Acute) Alcohol intoxication (Acute) Acute hyponatremia (Acute) Contusion of hip, right (Acute) Fall (Acute) Blunt head trauma (Acute) AAA (abdominal aortic aneurysm) (Acute) Deep vein thrombosis (Chronic) Nicotine dependence (Acute) Paroxysmal A-fib (Acute) Atrial fibrillation with rapid ventricular response (Acute) Chronic kidney disease (Chronic) Notes 09/11/24 03:45 Nursing Notes by Angeles Newman Nursing Note: RN called MD to change the phenobarb order as it was not the usual order set and also asked for PRN nausea meds. RN adminstered meds. See MAR. Pt placed on lunchroom monitor when phenobarb started. Initialized on 09/11/24 03:45 - END OF NOTE v v v v v v v v v Sending and/or Receiving Nurses: Please use comment section below to note any information pertinent to the patient hand-off not included above. Information / Comments: Pt on free water restriction hyponatremic diet 1000 mg. Water not tracked in ED. Report received from: LISA Sanchez RN. Report called at 1300.
[2024-09-11] MEDS: Lidocaine Patch Removal 1 EACH TP (16:24)
[2024-09-11] MEDS: Normal Saline Flush 10 ML SYR IVP (20:01)
[2024-09-11] MEDS: Mupirocin 2% Oint. 22 GM TUBE TP (20:02)
[2024-09-11] MEDS: Atorvastatin 40 MG TAB 80 MG PO (20:03)
[2024-09-11] MEDS: Apixaban 5 MG TAB PO (20:04)
[2024-09-12] MEDS: HYDROmorphone 2 MG TAB PO ×3 (01:52→21:51)
[2024-09-12] MEDS: Melatonin 3 MG TAB 6 MG PO ×2 (01:53→21:51)
[2024-09-12 03:27] VITALS: BP 113/89; PULSE 84; RESP 18; TEMP 36.2; O2SAT 96
[2024-09-12] MEDS: Acetaminophen 500 MG TAB 1000 MG PO ×2 (03:56→09:27)
[2024-09-12] MEDS: Lidocaine Patch Removal 1 EACH TP (04:15)
[2024-09-12] MEDS: Cyclobenzaprine 10 MG TAB PO ×3 (06:12→21:51)
[2024-09-12 07:35] LABS: Abs Immature Grans 0.04 10^3/uL (0.0-0.06); HCT 42.0 % (40.0-50.0); Immature Grans % 0.7 %; MCH 32.0 pg (27.0-33.0); MCHC 34.5 % (32.0-36.0); MCV 93 fL (80-95); MPV 10.5 fL (8.0-11.0); Platelet Count 165 10^3/uL (130-400); RBC 4.53 10^6/uL (4.36-5.78); RDW 12.4 % (11.8-14.1); RDW-SD 42.6 fL; WBC 5.48 10^3/uL (4.4-10.8)
[2024-09-12 07:37] LABS: HGB 14.5 g/dL (13.5-17.5)
[2024-09-12 07:47] LABS: Anion Gap 6.1 mmol/L (3-11); BUN 8 mg/dL (7-18); CO2 28.9 mmol/L (21.0-32.0); Calcium 8.9 mg/dL (8.5-10.1); Chloride 99 mmol/L (98-107); Estimated GFR 95.80 (mL/min/1.73m2); Glucose 122 mg/dL (74-106); Magnesium 1.9 mg/dL (1.8-2.4); Potassium 3.9 mmol/L (3.5-5.1); Sodium 134 mmol/L (136-145)
[2024-09-12] MEDS: Gabapentin 300 MG CAP PO ×3 (07:49→20:03)
[2024-09-12] MEDS: Citalopram 20 MG TAB PO (07:49)
[2024-09-12] MEDS: Potassium Chloride 20 MEQ TABCR 40 MEQ PO (07:50)
[2024-09-12] MEDS: Celecoxib 200 MG CAP PO ×2 (07:50→20:04)
[2024-09-12] MEDS: Multivitamin TAB 1 TAB PO (07:50)
[2024-09-12] MEDS: Tamsulosin 0.4 MG CAPCR PO (07:50)
[2024-09-12] MEDS: Topiramate 50 MG TAB 150 MG PO (07:50)
[2024-09-12] MEDS: Pantoprazole 40 MG TABCR PO (07:53)
[2024-09-12] MEDS: Folic Acid 1 MG TAB PO (07:53)
[2024-09-12] MEDS: Magnesium Oxide 400 MG TAB PO ×2 (07:53→20:04)
[2024-09-12] MEDS: Thiamine 100 MG TAB PO (07:53)
[2024-09-12] MEDS: Apixaban 5 MG TAB PO ×2 (07:53→20:03)
[2024-09-12] MEDS: Nicotine 14 MG/24 HR PATCH TD (08:01)
[2024-09-12] MEDS: Mupirocin 2% Oint. 22 GM TUBE TP ×2 (08:01→20:04)
[2024-09-12] MEDS: Normal Saline Flush 10 ML SYR IVP ×2 (08:02→20:04)
[2024-09-12 08:22] VITALS: PULSE 55
[2024-09-12] MEDS: Digoxin 0.125 MG TAB PO (08:22)
--- NOTE | 2024-09-12 09:19 | IN_ITS ---
PT Notes Visit Reasons: hyponatremia, fall, ambulatory dysfunction, alcoho Physical Therapy Inpatient Initial Evaluation Date: 09/12/2024 Referring Doctor:? PT Orders: PT CONSULT:? Precautions: Fall. Standard. WBAT on the R LE with AD. LVEF of 35-40%. Patient Profile/Admitting Diagnosis:? Patient is a 69-year-old male patient who presented to ED from home s/p fall d/t intoxication. Pt going through withdrawl protocol. On 06/14/24 he sustained a comminuted, displaced, and impacted trochanteric fracture of the R femur and is S/P ORIF using cephalomedullary nail fixation. Xray of right hip revealed no loosening of hardware but showed non healing of fracture. Pt initially went to SNF and was at home with HHPT and RN for treatment of cellulitis on R lower leg. PMHX: All Active Problems (Updated 06/26/24 @ 18:51 by Renee Liriano APRN) Stage II pressure ulcer of sacral region (Acute) Essential hypertension (Acute) AAA (abdominal aortic aneurysm) (Acute) Protein malnutrition (Acute) Deep vein thrombosis (Chronic) Nicotine dependence (Acute) Paroxysmal A-fib (Acute) Acute pulmonary embolus (Acute) Hematoma of right thigh (Acute) Candidal UTI (urinary tract infection) (Acute) Fracture, intertrochanteric, right femur (Acute) Atrial fibrillation with rapid ventricular response (Acute) Acute urinary retention (Acute) Cerebral cortical contusion-no coma (Acute) Fall (Acute) Closed fracture of right hip (Acute) Recurrent epistaxis (Acute) Chronic kidney disease (Chronic) Heart failure with reduced ejection fraction (Acute) Hepatitis C (Chronic) Per H&P: s/p tx. . He had an abc CT earlier this year which showed a normal liver.Normal anion gap metabolic acidosis (Acute) High anion gap metabolic acidosis (Acute) Lactic acidosis (Acute) Coagulopathy (Acute) Leukocytosis (Acute) Hyperphosphatemia (Acute) Hypocalcemia (Acute) Encephalopathy (Acute) Shock circulatory (Acute) Hyperkalemia (Acute) Acute renal failure (Acute) Acute liver failure (Acute) HFrEF (heart failure with reduced ejection fraction) (Acute) Anemia due to blood loss (Acute) Elevated liver enzymes (Acute) Acute posterior epistaxis (Acute) Acute anterior epistaxis (Acute) COPD (chronic obstructive pulmonary disease) (Chronic) Closed right clavicular fracture (Acute ~11/2021) Right shoulder pain (Acute) CHF (congestive heart failure) (Chronic) No-show for appointment (Acute) Left leg weakness (Acute) MCL sprain of right knee (Acute) Alcohol abuse (Chronic) Chest discomfort (Chronic) Acute on chronic diastolic heart failure (Acute) Bilateral pleural effusion (Acute) Falls (Acute) Pulmonary nodule (Acute) Acute respiratory failure with hypoxia (Acute) Pneumonia (Acute) Acute respiratory distress (Acute) Femur fracture, right (Acute) Fracture, rib (Acute) A-fib (Chronic) Laceration of digital nerve of left thumb (Acute) Gastritis and duodenitis (Acute) Medical History JOS (acute kidney injury) Leg edema Cardiogenic shock Tobacco use Back pain Obesity Chronic pain Asthma Adjustment disorder Pain in left wrist Right hip pain Insomnia Medication monitoring encounter History of depression Opioid withdrawal Cataract Blurred vision Patella-femoral syndrome Trochanteric bursitis Knee pain, right Rib pain Hx of viral pneumonia Lumbar radiculopathy Cocaine abuse Lightheadedness Abdominal pain in male Positive urine drug screen Dyspnea on exertion Voiding dysfunction Clavicle pain Arthritis Neck fracture Per pt. states he broke his nevk 5-6 years ago. 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 Pt receiving HHPT and RN. Equipment Owned/DME: SPC, FWW Subjective: In pain . Pain report 8/10 at rest but with walking pain level shot back up to 12/10 which prevented patient from reaching the door before needing to turn around to sit. Objective: General Observation: . Mental Status: Alert and oriented as to person and place. Some apathy observed requiring more encouragement to participate in PT. Pain: 12/10 in the R hip which subsided with pain medication intake to about 5-6/10 Vital Signs: WNL as closely monitored by nursing staff ROM: Right Lower Extremity: Ankle dorsiflexion to neutral only. Ankle plantarflexion WFL. Left Lower Extremity: Hip flexion WFL. Hip abduction WFL. Knee flexion WFL. Ankle dorsiflexion -10 degrees.? Ankle plantarflexion 20 degrees. Strength: Right Lower Extremity: Hip flexors 3-/5. Hip abductors 3-/5. Knee flexors 3-/5. Knee extensors 3-/5. Ankle dorsiflexors 3-/5. Ankle plantarflexors 4-/5. Left Lower Extremity: Hip flexors 3/5. Hip abductors 3/5. Knee flexors 3-/5. Knee extensors 3/5. Ankle dorsiflexors 3/5. Ankle plantarflexors 4-/5. Bed Mobility/Transfers: Supine to sit minimal assist Sit to supine minimal assist Sit to stand CGA Stand to sit CGA Bed to chair minimal assist with FWW d/t RLE instability Chair to bed minimal assist with FWW d/t right LE instability Gait: 15 feet using front-wheeled walker with minimal assist. Step-to gait pattern with antalgia. DF decreased. Mildly ataxic but no loss of balance. Step length asymmetrical. Moderate verbal cueing for safe limb movement sequence, walker management, posture, hand placement to minimze pain report and reduce fall risk. Balance: Sitting static: Good Sitting dynamic: Good Standing static: Fair + Standing dynamic: Fair Special Tests: Mobility Limitations Standardized Measure [facility] 6 clicks Basic Mobility Inpatient Short Form: Raw Score: 16? CMS Score:54.16% deficit? ? ? Informed Consent/Education:? Patient was instructed in purpose of PT consult and plan of care. Agreeable to proceed with established PT POC to achieve personal goals. Assessment: Patient is assist of 1 for all transfers and ambulation using front-wheeled walker. Skilled PT indicated to progress strength, range of motion, and function to facilitate return to home ultimately. Patient will also benefit from progressive balance training to reduce fall risk. Patient is a 69-year-old male patient who sustained a comminuted, displaced, and impacted trochanteric fracture of the R femur and is S/P ORIF using cephalomedullary nail fixation on 06/14/2024 Patient presents with clinical signs and symptoms consistent with current/admitting diagnoses that have resulted to mobility limitations, gait instability, generalized weakness, and overall ADL decline as demonstrated by the following impairment level findings: 1.? Decreased strength to B UE/LE major muscle groups 2.? Impaired sitting/standing balance 3.? Impaired activity tolerance 4.? Limitation of joint range of motion in R hip 5. ?pain Right hip Impairments are contributing to the following functional limitations: 1.? Decline in bed mobility skills 2.? Decline in transfer skills 3.? Difficulty with ambulation 4.? Increased completion time for mobility ADL performance 5.? Increased risk for falls 6.? Difficulty with managing steps alone safely Patient is assessed as a 95[address] moderate complexity based on the following: History: 69 [id number] male with past medical history as indicated above Examination: Demonstrable impairment in strength, balance, and mobility level with underlying impairments and functional limitations as exhibited above as well as deficit score of 51% utilizing the [facility] Mobility Inpatient Short Form Presentation: Evolving Decision Makin moderate complexity Goals: Goals X1 week 1. Supine-sit independent 2. Bed-Chair independent with FWW 3. Chair-Bed independent with FWW 4. Independent gait on level surface with FWW for at least 500 feet without report of pain nor dyspnea 5. Independent stair negotiation while holding onto 1 rails for at least 17 steps without report of pain nor dyspnea 6. Good static and dynamic standing balance/tolerance 7. Achieve dynamic standing balance of good to reduce fall risk Plan of Care/Treatment Plan: 1-2x/day, 7 days/week x 1 week. Patient will highly benefit from skilled physical therapy services including functional mobility training, bed mobility/transfer training, gait and balance training, therapeutic exercises, therapeutic activity, caregiver/staff/family education and training 1x/day, 7 days/week x 1 week. Plan of care has been reviewed with the [employer] providing the service under Physical Therapy direction. Initiate Physical Therapy intervention for strengthening, bed mobility, transfers, gait, stairs, balance training, use of assistive device. DISCHARGE RECOMMENDATIONS: [] ? Home with no services [] [] ? Home with services [] [] ? Home with outpatient PT [] [X] ? SNF for continued rehabilitation. Patient will benefit [facility] for continued skilled physical therapy services in order to progress mobility level, strength, and balance in preparation for a safe discharge to home. [] ? [facility] [] [] ? SNF versus LTC based on ability to participate and progress [] TREATMENT CODE/TIME: 59485 / (8:50-9:15). Thank you for the opportunity to participate in the care of this patient. Alexa Moody PT
--- NOTE | 2024-09-12 09:29 | PGE_ITS ---
Date of Service Date of service: 09/12/24 Time of Service: 11:30 Assessment and Plan Assessment and plan (1) Acute hyponatremia: Status: Acute Assessment and plan: Na 134 stable in the setting chronic ETOH intake Ongoing Hypotonic Fluid restriction1 L per 24 hours BMP in AM (2) Alcohol intoxication: Status: Acute Assessment and plan: Continue ETOH w/d assessment Ethyl level on admit >300 Phenobarbital 6mg/kg - loading dose completed as per CIWA -RASS protocole- Call MD if CIWA is positive - no PRN phenobarbital needed s/p bolus will discontinue for now Ongoing telemetry, VS and SPO2 monitoring as per protocol (3) Contusion of hip, right: Status: Acute Assessment and plan: S/p fall Pain management with PRN tylenol hydromorphone and scheduled opt celebrex Also on opt neurontin dosing (4) Fall: Status: Acute Assessment and plan: Continue physical therapy: SNF for continued rehabilitation as per recommendation (5) Blunt head trauma: Status: Acute Assessment and plan: No exacerbation - no fracture a sper imaging - neurologically non-focal Will continue to monitor (6) Atrial fibrillation with rapid ventricular response: Status: Acute Assessment and plan: Resolved- was transient in the ED- does have a history as per point 7 (7) Paroxysmal A-fib: Status: Acute Assessment and plan: On home meds remains in A-fib with MVR (8) Deep vein thrombosis: Status: Chronic Assessment and plan: Hx of was on Eliquis as per [facility] and d/c from [facility] on 07/03/24 Mentioned not taking his Rx at home Continue home dosing (9) Nicotine dependence: Status: Acute Assessment and plan: PRN NRT (10) Chronic kidney disease: Status: Chronic Assessment and plan: Stable improving GRF from 07/2024 (11) AAA (abdominal aortic aneurysm): Status: Acute Assessment and plan: Hx of As per CT on 06/14/24- 3.5 cm Opt f/u unless symptomatic with vascular (12) HFrEF (heart failure with reduced ejection fraction): Status: Acute Assessment and plan: 07/2023 w LVEF 35- 40%- no S&S of decompensation continue outpatient management (13) Discharge planning issues: Status: Acute Assessment and plan: Discussion with PCP Dr. Guzman re: LTC VS SNF reahab d/t physical environment, ETOH and recurrent falls PT recommended SNF CM to f/u- with possibility for referrals to be sent for offers discussed with Dr. Amaya Subjective Subjective Patient reports: no new complaints, still having pain, tolerating liquids well, tolerating a regular diet, voiding w/o difficulty and flatus; denies diarrhea, nausea, vomiting, shortness of breath or fever Exam Narrative Exam Narrative: Pleasant 69 yo male lookin older than age w/o acute distress , AOx3, heart irregular a-fib MVR on tele, unlabored breathing, clear lungs no wheezing abdomen soft, non-tender, non-distended, moves all 4 ext, RASS 0-1 Objective Last Vital Signs Temp 36.2 C L 09/12/24 03:27 Pulse 55 L 09/12/24 08:22 Resp 18 09/12/24 03:27 BP 113/89 09/12/24 03:27 Pulse Ox 96 09/12/24 03:27 Laboratory Results - last 24 hr 09/11/24 09/12/24 10:17 06:50 WBC 5.48 RBC 4.53 Hgb 14.5 D Hct 42.0 MCV 93 MCH 32.0 MCHC 34.5 RDW 12.4 Plt Count 165 MPV 10.5 Immature Gran % 0.7 Neutrophils % 49.8 Lymphocytes % 27.7 Monocytes % 14.1 Eosinophils % 6.2 Basophils % 1.5 Nucleated RBC % 0.0 Absolute Neutrophils 2.73 Absolute Lymphocytes 1.52 Absolute Monocytes 0.77 Absolute Eosinophils 0.34 Absolute Basophils 0.08 Sodium 134 L Potassium 3.9 Chloride 99 Carbon Dioxide 28.9 Anion Gap 6.1 BUN 8 Creatinine 0.8 Est GFR (CKD-EPI 2020) 95.80 Glucose 122 H Calcium 8.9 Magnesium 1.9 Urine Color Cancelled Urine Clarity Cancelled Urine pH Cancelled Ur Specific [place] Cancelled Urine Protein Cancelled Urine Ketones Cancelled Urine Blood Cancelled Urine Nitrite Cancelled Urine Bilirubin Cancelled Urine Urobilinogen Cancelled Ur Leukocyte Esterase Cancelled Urine Glucose Cancelled PAWSS Have you Been Recently Intoxicated or Drunk Within the Last 30 days?: Yes Have you Ever Experienced Previous Episodes of Alcohol Withdrawal?: Yes Have you ever Experienced Withdrawal Seizures?: Unable to Obtain Have you ever Experienced Delirium Tremens(DT)s?: Yes Have you ever undergone Alcohol Rehabilitation Treatment (i.e, inpt ot outpatient treatment programs)?: No Have you ever Experienced Blackouts?: Yes Have you ever Combined Alcohol with other Downers within the last 90 days?: No Have you ever Combined Alcohol with any other Substance of Abuse during the last 90 days?: Unable to Obtain Positive Blood Alcohol level on Presentation? [PCS.BAL]: Yes Evidence of Increased Autonomic Activity (i.e. HR>120, tremor, sweating, agitation, nausea)?: No Result: 5 Time Spent with Patient Time Spent with Patient: >50 minutes Time was spent: preparing to see the patient(eg.review tests), obtaining and/or reviewing separately otained hiistory, ordering medications,tests, procedures, referring, communicating with other health assurance services manager health care, indepentently interpreting results, counseling the patient and care coordination
[2024-09-12 11:21] VITALS: BP 117/93; PULSE 58; RESP 22; TEMP 36.6; O2SAT 98
[2024-09-12 14:51] VITALS: BP 111/82; PULSE 64; RESP 18; TEMP 36.8; O2SAT 98
--- NOTE | 2024-09-12 14:58 | CMPROGNOTE_ITS ---
Date of service: 09/12/24 Time of Service: 14:58 Care Management Progress Note Progress Note Text Progress Note Text: Geovani was sitting up in his chair eating his lunch when CM met with him. He stated that he isn't doing great today, and that his legs feel weak. He stated that he worked with PT, and didn't think he did very well. PT is recommending SNF for short term rehab vs HH PT, depending on how he progresses. Geovani stated that he is worried about falling at home, and is agreeable to short term rehab. CM sent referrals to the [facility], [facility], [facility], [facility] and [facility], which he was agreeable to. CM will continue to follow. Discharge Potential Discharge Needs: PCP F/U Appt Anticipated Barriers to Discharge: Bed availability Patient/Family Education Needs: Review discharge instructions, discuss Ask Me Three Transportation: RCT Plan: SNF referrals have been sent for Geovani; anticipate he will transfer for short term rehab once he is medically cleared. He will likely transport via [facility] private vehicle when ready. He will follow up with his PCP and discharge plan of care. CM will continue to follow. Social Determinants of Health Screening Will the Patient Participate in the Screening?: Unable to obtain
[2024-09-12] MEDS: Lidocaine 5% Patch 1 PATCH TP (15:32)
[2024-09-12] MEDS: Atorvastatin 40 MG TAB 80 MG PO (20:03)
[2024-09-12 20:38] VITALS: BP 120/83; PULSE 100; RESP 20; TEMP 37.4; O2SAT 94
[2024-09-12 22:38] VITALS: BP 126/77; PULSE 87; RESP 20; TEMP 36.6; O2SAT 95
[2024-09-13] MEDS: Lidocaine Patch Removal 1 EACH TP (04:54)
[2024-09-13] MEDS: Acetaminophen 500 MG TAB 1000 MG PO (06:09)
[2024-09-13] MEDS: Cyclobenzaprine 10 MG TAB PO ×2 (06:10→20:40)
[2024-09-13] MEDS: HYDROmorphone 2 MG TAB PO ×3 (06:10→18:27)
[2024-09-13 06:57] LABS: Abs Immature Grans 0.05 10^3/uL (0.0-0.06); HCT 41.9 % (40.0-50.0); HGB 14.3 g/dL (13.5-17.5); Immature Grans % 0.7 %; MCH 32.2 pg (27.0-33.0); MCHC 34.1 % (32.0-36.0); MCV 94 fL (80-95); MPV 10.0 fL (8.0-11.0); Platelet Count 160 10^3/uL (130-400); RBC 4.44 10^6/uL (4.36-5.78); RDW 12.5 % (11.8-14.1); RDW-SD 43.6 fL; WBC 6.83 10^3/uL (4.4-10.8)
[2024-09-13 07:34] LABS: ALT 11 U/L (16-63); AST 15 U/L (15-37); Albumin 2.8 g/dL (3.4-5.0); Alkaline Phosphatase 120 U/L (46-116); Anion Gap 6.5 mmol/L (3-11); BUN 11 mg/dL (7-18); Bilirubin, Total 0.5 mg/dL (0.2-1.0); CO2 26.5 mmol/L (21.0-32.0); Calcium 8.8 mg/dL (8.5-10.1); Chloride 101 mmol/L (98-107); Estimated GFR 81.47 (mL/min/1.73m2); Glucose 126 mg/dL (74-106); Potassium 4.5 mmol/L (3.5-5.1); Sodium 134 mmol/L (136-145); Total Protein 6.8 g/dL (6.4-8.2)
[2024-09-13] MEDS: Mupirocin 2% Oint. 22 GM TUBE TP ×3 (08:31→20:40)
[2024-09-13] MEDS: Normal Saline Flush 10 ML SYR IVP ×2 (08:31→20:33)
[2024-09-13] MEDS: Nicotine 14 MG/24 HR PATCH TD (08:32)
[2024-09-13] MEDS: Digoxin 0.125 MG TAB PO (08:32)
[2024-09-13] MEDS: Tamsulosin 0.4 MG CAPCR PO (08:33)
[2024-09-13] MEDS: Potassium Chloride 20 MEQ TABCR 40 MEQ PO (08:33)
[2024-09-13] MEDS: Apixaban 5 MG TAB PO ×2 (08:33→20:31)
[2024-09-13] MEDS: Topiramate 50 MG TAB 150 MG PO (08:33)
[2024-09-13] MEDS: Magnesium Oxide 400 MG TAB PO ×2 (08:33→20:32)
[2024-09-13] MEDS: Folic Acid 1 MG TAB PO (08:34)
[2024-09-13] MEDS: Metoprolol CR 50 MG TABCR PO (08:34)
[2024-09-13] MEDS: Celecoxib 200 MG CAP PO ×2 (08:34→20:32)
[2024-09-13] MEDS: Gabapentin 300 MG CAP PO ×3 (08:34→20:40)
[2024-09-13] MEDS: Ferrous Gluconate 324 MG TAB PO (08:34)
[2024-09-13] MEDS: Citalopram 20 MG TAB PO (08:35)
[2024-09-13] MEDS: Thiamine 100 MG TAB PO (08:35)
[2024-09-13] MEDS: Multivitamin TAB 1 TAB PO (08:35)
[2024-09-13] MEDS: Pantoprazole 40 MG TABCR PO (08:35)
--- NOTE | 2024-09-13 14:15 | PT.INNT ---
Date of service: 09/13/24 Time of Service: 14:08 PT Notes Visit Reasons: hyponatremia, fall, ambulatory dysfunction, alcoho Attempted to see patient at 12:25 and 1408 but patient refused both times. First time, he was agitated and said he was in too much pain. 2nd time, c/o fatigue, nausea and hip pain. Declined walking, ROM, ice both attempts. ABEL Pascual notified. Will attempt again tomorrow.
--- NOTE | 2024-09-13 15:48 | W.PM.PROGNOT ---
Date of Service Date of service: 09/13/24 Time of Service: 15:48 Assessment and Plan Assessment and plan (1) Acute hyponatremia: Status: Resolved Assessment and plan: Na 134 stable in the setting chronic ETOH intake free water fluid restriction lifted BMP in AM (2) Alcohol intoxication: Status: Acute Assessment and plan: no symptoms of withdrawal Ethyl level on admit >300 Phenobarbital 6mg/kg - loading dose completed as per CIWA -RASS protocol no PRN phenobarbital needed s/p bolus will discontinue for now (3) Contusion of hip, right: Status: Acute Assessment and plan: S/p fall Pain management with PRN tylenol hydromorphone and scheduled celebrex and gabapentin (4) Fall: Status: Acute Assessment and plan: Continue physical therapy: SNF for continued rehabilitation as per recommendation fall precautions (5) Blunt head trauma: Status: Acute Assessment and plan: CT imaging negative - neurologically non-focal no post concussive symptoms (6) Atrial fibrillation with rapid ventricular response: Status: Resolved Assessment and plan: Resolved- was transient in the ED- continue home medications fully anticoagulated on apixaban (7) Deep vein thrombosis: Status: Chronic Assessment and plan: fully anticoagulated on apixaban (8) Nicotine dependence: Status: Acute Assessment and plan: PRN NRT (9) Chronic kidney disease: Status: Chronic Assessment and plan: avoid nephrotoxic drugs and renal dose as needed stable. (10) AAA (abdominal aortic aneurysm): Status: Acute Assessment and plan: Hx of As per CT on 06/14/24- 3.5 cm outpatient follow up unless symptomatic with vascular (11) HFrEF (heart failure with reduced ejection fraction): Status: Acute Assessment and plan: 07/2023 w LVEF 35- 40%- no S&S of decompensation continue outpatient management (12) Discharge planning issues: Status: Acute Assessment and plan: Discussion with PCP Dr. Guzman re: LTC VS SNF reahab d/t physical environment, ETOH and recurrent falls PT recommended SNF Case management following outpatient referrals pending discussed with Dr. Amaya Subjective Subjective Patient reports: no new complaints Exam Narrative Exam Narrative: Thin chronically ill-appearing male older than stated age no acute distress head is atraumatic skin is ashen warm and dry eyes nonicteric noninjected oral mucosa moist neck full range of motion respirations even and unlabored cardiovascular regular rate and rhythm abdomen soft nontender extremities no peripheral edema neurologic he is awake alert oriented psychiatric blunted mood and affect Objective Last Vital Signs Temp 36.6 C 09/12/24 22:38 Pulse 87 09/12/24 22:38 Resp 20 09/12/24 22:38 BP 126/77 09/12/24 22:38 Pulse Ox 95 09/12/24 22:38 Laboratory Results - last 24 hr 09/13/24 06:40 WBC 6.83 RBC 4.44 Hgb 14.3 Hct 41.9 MCV 94 MCH 32.2 MCHC 34.1 RDW 12.5 Plt Count 160 MPV 10.0 Immature Gran % 0.7 Neutrophils % 55.4 Lymphocytes % 24.2 Monocytes % 10.1 Eosinophils % 8.6 Basophils % 1.0 Nucleated RBC % 0.0 Absolute Neutrophils 3.78 Absolute Lymphocytes 1.65 Absolute Monocytes 0.69 Absolute Eosinophils 0.59 Absolute Basophils 0.07 Sodium 134 L Potassium 4.5 Chloride 101 Carbon Dioxide 26.5 Anion Gap 6.5 BUN 11 Creatinine 1.0 Est GFR (CKD-EPI 2020) 81.47 Glucose 126 H Calcium 8.8 Total Bilirubin 0.5 AST 15 ALT 11 L Alkaline Phosphatase 120 H Total Protein 6.8 Albumin 2.8 L PAWSS Have you Been Recently Intoxicated or Drunk Within the Last 30 days?: Yes Have you Ever Experienced Previous Episodes of Alcohol Withdrawal?: Yes Have you ever Experienced Withdrawal Seizures?: Unable to Obtain Have you ever Experienced Delirium Tremens(DT)s?: Yes Have you ever undergone Alcohol Rehabilitation Treatment (i.e, inpt ot outpatient treatment programs)?: No Have you ever Experienced Blackouts?: Yes Have you ever Combined Alcohol with other Downers within the last 90 days?: No Have you ever Combined Alcohol with any other Substance of Abuse during the last 90 days?: Unable to Obtain Positive Blood Alcohol level on Presentation? [PCS.BAL]: Yes Evidence of Increased Autonomic Activity (i.e. HR>120, tremor, sweating, agitation, nausea)?: No Result: 5 Time Spent with Patient Time Spent with Patient: 35-49 minutes Time was spent: preparing to see the patient(eg.review tests), obtaining and/or reviewing separately otained hiistory, ordering medications,tests, procedures and indepentently interpreting results
[2024-09-13] MEDS: Lidocaine 5% Patch 1 PATCH TP (16:39)
[2024-09-13 19:57] VITALS: BP 122/84; PULSE 79; RESP 20; TEMP 36.6; O2SAT 95
[2024-09-13] MEDS: Atorvastatin 40 MG TAB 80 MG PO (20:32)
[2024-09-14] MEDS: Acetaminophen 500 MG TAB 1000 MG PO ×2 (04:09→12:59)
[2024-09-14] MEDS: Cyclobenzaprine 10 MG TAB PO ×4 (04:10→20:54)
[2024-09-14] MEDS: Lidocaine Patch Removal 1 EACH TP (04:34)
[2024-09-14 08:26] VITALS: PULSE 91
[2024-09-14] MEDS: Digoxin 0.125 MG TAB PO (08:26)
[2024-09-14] MEDS: Nicotine 14 MG/24 HR PATCH TD (08:27)
[2024-09-14] MEDS: Metoprolol CR 50 MG TABCR PO (08:27)
[2024-09-14] MEDS: Gabapentin 300 MG CAP PO ×3 (08:27→20:53)
[2024-09-14] MEDS: Tamsulosin 0.4 MG CAPCR PO (08:27)
[2024-09-14] MEDS: Topiramate 50 MG TAB 150 MG PO (08:28)
[2024-09-14] MEDS: Potassium Chloride 20 MEQ TABCR 40 MEQ PO (08:28)
[2024-09-14] MEDS: Apixaban 5 MG TAB PO ×2 (08:28→20:53)
[2024-09-14] MEDS: Magnesium Oxide 400 MG TAB PO ×2 (08:28→20:53)
[2024-09-14] MEDS: Pantoprazole 40 MG TABCR PO (08:29)
[2024-09-14] MEDS: Folic Acid 1 MG TAB PO (08:29)
[2024-09-14] MEDS: Multivitamin TAB 1 TAB PO (08:29)
[2024-09-14] MEDS: Citalopram 20 MG TAB PO (08:29)
[2024-09-14] MEDS: Thiamine 100 MG TAB PO (08:30)
[2024-09-14] MEDS: Normal Saline Flush 10 ML SYR IVP ×2 (08:31→20:55)
[2024-09-14] MEDS: Celecoxib 200 MG CAP PO ×2 (08:31→20:53)
[2024-09-14] MEDS: Mupirocin 2% Oint. 22 GM TUBE TP ×2 (08:34→20:53)
[2024-09-14] MEDS: HYDROmorphone 2 MG TAB PO ×2 (15:08→20:59)
[2024-09-14] MEDS: Lidocaine 5% Patch 1 PATCH TP (15:08)
--- NOTE | 2024-09-14 15:30 | PGE_ITS ---
Date of Service Date of service: 09/14/24 Time of Service: 15:30 Assessment and Plan Assessment and plan (1) Acute hyponatremia: Status: Resolved Assessment and plan: Na 134 stable in the setting chronic ETOH intake free water fluid restriction lifted BMP in AM (2) Alcohol intoxication: Status: Resolved Assessment and plan: s/p Phenobarbital 6mg/kg - loading dose completed as per CIWA -RASS no PRN phenobarbital needed s/p bolus discontinue for now continue thiamine (3) Contusion of hip, right: Status: Acute Assessment and plan: S/p fall Pain management with PRN tylenol hydromorphone and scheduled celebrex and gabapentin (4) Fall: Status: Acute Assessment and plan: Continue physical therapy: SNF for continued rehabilitation as per recommendation (5) Blunt head trauma: Status: Acute Assessment and plan: no post concussive symptoms (6) Paroxysmal A-fib: Status: Acute Assessment and plan: fully anticoagulated continue home meds (7) Deep vein thrombosis: Status: Chronic Assessment and plan: on apixaban (8) Nicotine dependence: Status: Acute Assessment and plan: PRN NRT (9) Chronic kidney disease: Status: Chronic Assessment and plan: renal dosing, avoid nephrotoxic drugs (10) AAA (abdominal aortic aneurysm): Status: Chronic Assessment and plan: Hx of As per CT on 06/14/24- 3.5 cm Opt f/u unless symptomatic with vascular (11) HFrEF (heart failure with reduced ejection fraction): Status: Acute Assessment and plan: 07/2023 w LVEF 35- 40%- no S&S of decompensation continue outpatient management (12) Discharge planning issues: Status: Acute Assessment and plan: PT recommended SNF case management following with referrals sent and pending discussed with Dr. Amaya Subjective Subjective Patient reports: no new complaints, tolerating liquids well, tolerating a regular diet and afebrile; denies shortness of breath Exam Narrative Exam Narrative: Thin chronically ill-appearing male older than stated age no acute distress head is atraumatic skin is ashen warm and dry eyes nonicteric noninjected oral mucosa moist neck full range of motion respirations even and unlabored cardiovascular regular rate and rhythm abdomen soft nontender extremities no peripheral edema neurologic he is awake alert oriented psychiatric blunted mood and affect Objective Last Vital Signs Temp 36.6 C 07/12/25 19:57 Pulse 91 H 09/14/24 08:26 Resp 20 09/13/24 19:57 BP 122/84 09/13/24 19:57 Pulse Ox 95 09/13/24 19:57 PAWSS Have you Been Recently Intoxicated or Drunk Within the Last 30 days?: Yes Have you Ever Experienced Previous Episodes of Alcohol Withdrawal?: Yes Have you ever Experienced Withdrawal Seizures?: Unable to Obtain Have you ever Experienced Delirium Tremens(DT)s?: Yes Have you ever undergone Alcohol Rehabilitation Treatment (i.e, inpt ot outpatient treatment programs)?: No Have you ever Experienced Blackouts?: Yes Have you ever Combined Alcohol with other Downers within the last 90 days?: No Have you ever Combined Alcohol with any other Substance of Abuse during the last 90 days?: Unable to Obtain Positive Blood Alcohol level on Presentation? [PCS.BAL]: Yes Evidence of Increased Autonomic Activity (i.e. HR>120, tremor, sweating, agitation, nausea)?: No Result: 5 Time Spent with Patient Time Spent with Patient: 35-49 minutes Time was spent: preparing to see the patient(eg.review tests), obtaining and/or reviewing separately otained hiistory, ordering medications,tests, procedures, referring, communicating with other health pet care worker, indepentently interpreting results and counseling the patient
--- NOTE | 2024-09-14 15:37 | PT.INNT ---
Date of service: 09/14/24 Time of Service: 15:37 PT Notes Visit Reasons: hyponatremia, fall, ambulatory dysfunction, alcoho Attempted to see patient for ambulation. You are interrupting my cookie and milk. Reviewed importance of attempting to ambulate and changing positions. Patient refused treatment.
[2024-09-14] MEDS: Polyethylene Glycol 3350 17 GM PACKET PO (16:18)
[2024-09-14 20:51] VITALS: BP 121/77; PULSE 80; RESP 20; TEMP 36.3; O2SAT 98
[2024-09-14] MEDS: Atorvastatin 40 MG TAB 80 MG PO (20:54)
[2024-09-15] MEDS: Cyclobenzaprine 10 MG TAB PO ×3 (02:50→20:55)
[2024-09-15] MEDS: HYDROmorphone 2 MG TAB PO ×4 (02:50→20:54)
[2024-09-15] MEDS: Lidocaine Patch Removal 1 EACH TP (05:10)
[2024-09-15] MEDS: Nicotine 14 MG/24 HR PATCH TD (07:37)
[2024-09-15] MEDS: Tamsulosin 0.4 MG CAPCR PO (07:37)
[2024-09-15] MEDS: Topiramate 50 MG TAB 150 MG PO (07:37)
[2024-09-15 07:38] VITALS: PULSE 84
[2024-09-15] MEDS: Citalopram 20 MG TAB PO (07:38)
[2024-09-15] MEDS: Digoxin 0.125 MG TAB PO (07:38)
[2024-09-15] MEDS: Ferrous Gluconate 324 MG TAB PO (07:38)
[2024-09-15] MEDS: Celecoxib 200 MG CAP PO ×2 (07:38→20:55)
[2024-09-15] MEDS: Multivitamin TAB 1 TAB PO (07:38)
[2024-09-15] MEDS: Potassium Chloride 20 MEQ TABCR 40 MEQ PO (07:38)
[2024-09-15] MEDS: Gabapentin 300 MG CAP PO ×3 (07:38→20:55)
[2024-09-15] MEDS: Thiamine 100 MG TAB PO (07:38)
[2024-09-15] MEDS: Pantoprazole 40 MG TABCR PO (07:40)
[2024-09-15] MEDS: Magnesium Oxide 400 MG TAB PO ×2 (07:40→20:55)
[2024-09-15] MEDS: Normal Saline Flush 10 ML SYR IVP (07:40)
[2024-09-15] MEDS: Folic Acid 1 MG TAB PO (07:40)
[2024-09-15] MEDS: Apixaban 5 MG TAB PO ×2 (07:40→20:55)
[2024-09-15] MEDS: Metoprolol CR 50 MG TABCR PO (07:40)
[2024-09-15] MEDS: Mupirocin 2% Oint. 22 GM TUBE TP ×2 (07:40→16:34)
[2024-09-15 07:44] VITALS: BP 113/99; PULSE 88; RESP 14; TEMP 36.3; O2SAT 92
[2024-09-15] MEDS: Polyethylene Glycol 3350 17 GM PACKET PO (10:00)
[2024-09-15] MEDS: Acetaminophen 500 MG TAB 1000 MG PO ×2 (10:01→16:34)
--- NOTE | 2024-09-15 10:57 | PT.INTREAT ---
PT Notes Visit Reasons: hyponatremia, fall, ambulatory dysfunction, alcoho Physical Therapy Inpatient Treatment Note Date: 09/15/2024 Precautions: Fall. Standard. WBAT on the R LE with AD. LVEF of 35-40%. Subjective: Agreeable to working with PT with extensive encouragement. Complained of up to 8/10 pain in the L knee, felt it being shaky after standing about 10 minutes by the sink to do morning care. L leg and feet re and swollen compared to the L. In the afternoon, reported 12/10 pain int he same site and required 3 attempts to get out of bed from supine due to pain. Objective: General Observation: Resting in bed. IV through R UE but was removed by Nurse Lara earlier today due to patency issue. Mental Status: Alert and oriented as to person and place. Some apathy observed requiring more encouragement to participate in PT. Pain: As above Vital Signs: Soft today with 80/60 mmHg this morning and this afternoon 97/70 mmHg ROM: Right Lower Extremity: Hip flexion allowed up to 90 degrees as natali was able to sit up at edge of bed however did not want to slide R heel up in supine due to pain. Ankle dorsiflexion to neutral only. Ankle plantarflexion WFL. Left Lower Extremity: Hip flexion WFL. Hip abduction WFL. Knee flexion WFL. Ankle dorsiflexion -10 degrees.? Ankle plantarflexion 20 degrees. Strength: Right Lower Extremity: Hip flexors 3-/5. Hip abductors 3-/5. Knee flexors 3-/5. Knee extensors 3-/5. Ankle dorsiflexors 3-/5. Ankle plantarflexors 4-/5. Left Lower Extremity: Hip flexors 3/5. Hip abductors 3/5. Knee flexors 3-/5. Knee extensors 3/5. Ankle dorsiflexors 3-/5. Ankle plantarflexors 4-/5. Bed Mobility/Transfers: Minimal cueing provided for use of B hands as needed for support, movement sequence, AD management, and posture to reduce fall risk and minimize pain report Supine to sit minimal assist Sit to stand contact guard assist with FWW Stand to sit contact guard assist with FWW Bed to toilet seat contact guard assist with FWW toliet seat to bedside recliner minimal assist with FWW d/t onset right LE instability Gait: In the AM, 25 feet + 25 feet and in the afternoon 25 feet + 10 feet using front-wheeled walker with contact guard to minimal assist. Step-to gait pattern with antalgia. DF decreased in L. Step length asymmetrical. Moderate verbal cueing for safe limb movement sequence, walker management, posture, hand placement to minimze pain report and reduce fall risk. Stairs: Deferred Balance: Sitting static: Good Sitting dynamic: Good Standing static: Fair Standing dynamic: Fair Assessment: Pre-medication for pain is needed to effectively and safely participate in PT. Requires extensive encouragement to get motivated with mobility performance as painis the main limiting factor. Most recent imaging showed no fracture nor dislocation in R LE. Has chronic L foot drop. Will assess for utility of bracing in the R knee to address apparent chronic knee instability in order o increase safety of mobility ADL performance. Patient was able to stand for up to abut 10 minutes by the sink to perform morning care: washing of hands and face and brushing of teeth before spasm of pain got through the knee and leg, no LOB. In the afternoons session, patient was asssited to walk to the shower area but pain level limited distance to the door of fhis room only. He was able walk from wheelchair to the shower chair for an additional of 10 steps total. DISCHARGE RECOMMENDATIONS: Short-term SNF for continued progression in strength, balance, activity tolerance, and AD management in anticipation of return to home when safe. TREATMENT CODE/TIME: Session1--45572 x 44 minutes for 3 units (10:57-11:41). Session 2-- [id number] x 23 minutes for 2 units (15:11-15:34).
[2024-09-15 11:36] VITALS: BP 97/68; PULSE 52; RESP 16; TEMP 36.5; O2SAT 99
--- NOTE | 2024-09-15 12:25 | CMPROGNOTE_ITS ---
Date of service: 09/15/24 Time of Service: 12:25 Care Management Progress Note Progress Note Text Progress Note Text: Derrick refused PT several times this weekend due to pain, but was able to participate today and expressed that it takes time for him to feel motivated. Per PT, Geovani walked to the bathroom from bed and back with contact guard assist. He had a spasm in his right thigh and knee which almost made him sit down, but was able to take the pain. PT recommends SNF for STR, referrals were sent Sunday and are pending at the [facility], [facility] and [facility]. CM will continue to follow and send updated clinicals to each STR. Discharge Potential Discharge Needs: PCP F/U Appt Anticipated Barriers to Discharge: None Identified Patient/Family Education Needs: Review discharge instructions, discuss Ask Me Three Transportation: [facility] Plan: Pt is agreeable and appears motivated to work with PT despite having pain. SNF referrals have been sent for Geovani; anticipate he will transfer for short term rehab once he is medically cleared. He will likely transport via [facility] private vehicle when ready. He will follow up with his PCP and discharge plan of care. CM will continue to follow. Social Determinants of Health Screening Will the Patient Participate in the Screening?: Unable to obtain
[2024-09-15 12:52] LABS: Anion Gap 9.0 mmol/L (3-11); BUN 23 mg/dL (7-18); CO2 24.0 mmol/L (21.0-32.0); Calcium 9.3 mg/dL (8.5-10.1); Chloride 102 mmol/L (98-107); Estimated GFR 72.67 (mL/min/1.73m2); Glucose 63 mg/dL (74-106); Potassium 4.6 mmol/L (3.5-5.1); Sodium 135 mmol/L (136-145)
--- NOTE | 2024-09-15 13:39 | PGE_ITS ---
Date of Service Date of service: 09/15/24 Time of Service: 13:40 Assessment and Plan Assessment and plan (1) Acute hyponatremia: Status: Resolved Assessment and plan: NA 135 (2) Alcohol intoxication: Status: Resolved (3) Contusion of hip, right: Status: Acute Assessment and plan: S/p fall Pain management with PRN tylenol hydromorphone and scheduled celebrex and gabapentin PT consult - pateint originally declined to work with PT, however today he is eager to work with them; he does not feel that he can manage at home. Care mgrs to send referrals for SNF. (4) Fall: Status: Acute Assessment and plan: Continue physical therapy: SNF for continued rehabilitation as per recommendation (5) Blunt head trauma: Status: Acute Assessment and plan: no post concussive symptoms (6) Paroxysmal A-fib: Status: Acute Assessment and plan: fully anticoagulated continue home meds (7) Deep vein thrombosis: Status: Chronic Assessment and plan: on apixaban (8) Nicotine dependence: Status: Acute Assessment and plan: PRN NRT (9) Chronic kidney disease: Status: Chronic Assessment and plan: Cr 1.1 (10) AAA (abdominal aortic aneurysm): Status: Chronic Assessment and plan: Hx of As per CT on 06/14/24- 3.5 cm Opt f/u unless symptomatic with vascular (11) HFrEF (heart failure with reduced ejection fraction): Status: Acute Assessment and plan: 07/2023 w LVEF 35- 40%- no S&S of decompensation continue outpatient management (12) Discharge planning issues: Status: Acute Assessment and plan: PT recommended SNF case management following with referrals sent and pending discussed with Dr. Guillaume Subjective Subjective Patient reports: no new complaints, tolerating liquids well, tolerating a regular diet and afebrile; denies shortness of breath Interval history since last seen: Working with PT, doesn't think he can manage at home. Exam Narrative Exam Narrative: General: Thin, chronically ill-appearing male who appears older than stated age; in no acute distress Head: Atraumatic, normocephalic Skin: Ashen, warm, and dry. Eyes: Non-icteric, non-injected. Oral Mucosa: Moist. Neck: Full range of motion, no lymphadenopathy or stiffness. Respiratory: Even and unlabored respirations; no respiratory distress. Cardiovascular: Regular rate and rhythm; no murmurs, rubs, or gallops. Abdomen: Soft, non-tender, non-distended; no organomegaly. Extremities: No peripheral edema or cyanosis. Neurologic: Awake, alert, and oriented ?3; no focal deficits. Psychiatric: Blunted mood and affect; appropriate behavior; no agitation or psychosis observed. Objective Last Vital Signs Temp 36.5 C 09/15/24 11:36 Pulse 52 L 09/15/24 11:36 Resp 16 09/15/24 11:36 BP 97/68 L 09/15/24 11:36 Pulse Ox 99 09/15/24 11:36 Laboratory Results - last 24 hr 09/15/24 11:28 Sodium 135 L Potassium 4.6 Chloride 102 Carbon Dioxide 24.0 Anion Gap 9.0 BUN 23 H Creatinine 1.1 Est GFR (CKD-EPI 2020) 72.67 Glucose 63 L Calcium 9.3 PAWSS Have you Been Recently Intoxicated or Drunk Within the Last 30 days?: Yes Have you Ever Experienced Previous Episodes of Alcohol Withdrawal?: Yes Have you ever Experienced Withdrawal Seizures?: Unable to Obtain Have you ever Experienced Delirium Tremens(DT)s?: Yes Have you ever undergone Alcohol Rehabilitation Treatment (i.e, inpt ot outp atient treatment programs)?: No Have you ever Experienced Blackouts?: Yes Have you ever Combined Alcohol with other Downers within the last 90 days?: No Have you ever Combined Alcohol with any other Substance of Abuse during the last 90 days?: Unable to Obtain Positive Blood Alcohol level on Presentation? [PCS.BAL]: Yes Evidence of Increased Autonomic Activity (i.e. HR>120, tremor, sweating, agitation, nausea)?: No Result: 5 Time Spent with Patient Time Spent with Patient: 25-34 minutes Time was spent: preparing to see the patient(eg.review tests), ordering medi cations,tests, procedures, referring, communicating with other health animal caretaker supervisor, indepentently interpreting results, counseling the patient and care coordination
[2024-09-15 15:17] VITALS: BP 95/65; PULSE 75; RESP 16; TEMP 36.4; O2SAT 96
[2024-09-15] MEDS: Lidocaine 5% Patch 1 PATCH TP (16:34)
[2024-09-15 20:02] VITALS: BP 106/77; PULSE 78; RESP 22; TEMP 36.5; O2SAT 96
[2024-09-15] MEDS: Atorvastatin 40 MG TAB 80 MG PO (20:55)
[2024-09-16] MEDS: Lidocaine Patch Removal 1 EACH TP (05:36)
[2024-09-16 07:17] LABS: Abs Immature Grans 0.10 10^3/uL (0.0-0.06); HCT 40.7 % (40.0-50.0); HGB 13.5 g/dL (13.5-17.5); Immature Grans % 1.2 %; MCH 32.1 pg (27.0-33.0); MCHC 33.2 % (32.0-36.0); MCV 97 fL (80-95); MPV 10.5 fL (8.0-11.0); Platelet Count 178 10^3/uL (130-400); RBC 4.20 10^6/uL (4.36-5.78); RDW 13.1 % (11.8-14.1); RDW-SD 46.5 fL; WBC 8.58 10^3/uL (4.4-10.8)
[2024-09-16 07:33] VITALS: BP 140/101; PULSE 60; RESP 12; TEMP 35.9; O2SAT 100
[2024-09-16 07:33] LABS: Anion Gap 9.7 mmol/L (3-11); BUN 29 mg/dL (7-18); CO2 24.3 mmol/L (21.0-32.0); Calcium 9.1 mg/dL (8.5-10.1); Chloride 103 mmol/L (98-107); Estimated GFR 72.67 (mL/min/1.73m2); Glucose 108 mg/dL (74-106); Magnesium 1.7 mg/dL (1.8-2.4); Potassium 4.3 mmol/L (3.5-5.1); Sodium 137 mmol/L (136-145)
[2024-09-16 08:33] VITALS: PULSE 65
[2024-09-16] MEDS: Mupirocin 2% Oint. 22 GM TUBE TP ×3 (08:33→19:42)
[2024-09-16] MEDS: Potassium Chloride 20 MEQ TABCR 40 MEQ PO (08:33)
[2024-09-16] MEDS: Digoxin 0.125 MG TAB PO (08:33)
[2024-09-16] MEDS: Nicotine 14 MG/24 HR PATCH TD (08:33)
[2024-09-16] MEDS: Citalopram 20 MG TAB PO (08:33)
[2024-09-16] MEDS: Tamsulosin 0.4 MG CAPCR PO (08:33)
[2024-09-16] MEDS: Gabapentin 300 MG CAP PO ×3 (08:33→19:41)
[2024-09-16] MEDS: Topiramate 50 MG TAB 150 MG PO (08:33)
[2024-09-16] MEDS: Apixaban 5 MG TAB PO ×2 (08:34→19:41)
[2024-09-16] MEDS: Celecoxib 200 MG CAP PO ×2 (08:34→19:41)
[2024-09-16] MEDS: Multivitamin TAB 1 TAB PO (08:34)
[2024-09-16] MEDS: Pantoprazole 40 MG TABCR PO (08:34)
[2024-09-16] MEDS: Folic Acid 1 MG TAB PO (08:34)
[2024-09-16] MEDS: Thiamine 100 MG TAB PO (08:34)
[2024-09-16] MEDS: Metoprolol CR 50 MG TABCR PO (08:34)
[2024-09-16] MEDS: Magnesium Oxide 400 MG TAB PO ×2 (08:34→19:41)
--- NOTE | 2024-09-16 09:12 | PTTR_ITS ---
PT Notes Visit Reasons: hyponatremia, fall, ambulatory dysfunction, alcoho Physical Therapy Inpatient Treatment Note Date: 09/16/2024 Precautions: Fall. Standard. WBAT on the R LE with AD. LVEF of 35-40%. Subjective: Pain continues to limit performance but patient now realizing ability to work through pain knowing that he did not break any bones when he fell at home. Appreciative of the shower that he had yesterday with ANURADHA Lombardi. Objective: General Observation: Appeared less anxious and more able to participate in therapy today. Becoming more participative and motivated. R leg and foot more swollen and red than the L. Mental Status: Alert and oriented as to person and place. Pain: Significant pain reported but patient is slowly able to power through today's activities slowly Vital Signs: Closely monitored by nursing staff Bed Mobility/Transfers: Minimal cueing provided for use of B hands as needed for support, movement sequence, AD management, and posture to reduce fall risk and minimize pain report Supine to sit minimal assist Sit to stand stand by assist with FWW Stand to sit stand by assist with FWW Gait: In the AM, 80 feet and in the afternoon 100 feet using front-wheeled walker with stand by assist. Antalgia diminishing. Step length and height improving on the R. Moderate verbal cueing for safe limb movement sequence, walker management, posture, hand placement to minimize pain report and reduce fall risk. Stairs: Deferred for today. Balance: Sitting static: Good Sitting dynamic: Good Standing static: Fair Standing dynamic: Fair THERA EX: Seated marches x 10 LAQs x 5 PF x 10 Assessment: Pre-medication for pain continues to be needed to effectively and safely participate in PT. Most recent imaging showed no fracture nor dislocation in R LE. Has chronic L foot drop. Deferred plan to use brace as patient has not demonstrated any buckling or weakness in the R knee yesterday and today. PLAN: Progress functional mobility level as tolerated. Continue to pre-medicate for pain. Trial stairs in the next sessions. DISCHARGE RECOMMENDATIONS: Short-term SNF for continued progression in strength, balance, activity tolerance, and AD management in anticipation of return to home when safe. TREATMENT CODE/TIME: Session1--58711 x 12 minutes for 1 unit, 74009 x 11 minutes for 1 unit (09:12- 09:35). Session 2-- 28587 x 17 minutes for 1 unit (15:11-15:28).
--- NOTE | 2024-09-16 09:15 | CMPROGNOTE_ITS ---
Date of service: 09/16/24 Time of Service: 09:15 Care Management Progress Note Progress Note Text Progress Note Text: Derrick is medically ready for discharge and waiting to be accepted at a SNF for STR. No updates, referrals are still pending at [facility], [facility], [facility], [facility] and [facility]. [facility] has no bed availability. CM will continue to follow and send updated clinicals as needs. Discharge Potential Discharge Needs: PCP F/U Appt Anticipated Barriers to Discharge: None Identified Patient/Family Education Needs: Review discharge instructions, discuss Ask Me [facility] Transportation: [facility] Plan: Pt is agreeable and appears motivated to work with PT despite having pain. SNF referrals have been sent for [facility]; anticipate he will transfer for short term rehab once he is medically cleared. He will likely transport via [facility] private vehicle when ready. He will follow up with his PCP and discharge plan of care. CM will continue to follow. Social Determinants of Health Screening Will the Patient Participate in the Screening?: Unable to obtain
[2024-09-16] MEDS: HYDROmorphone 2 MG TAB PO ×2 (09:52→16:33)
[2024-09-16] MEDS: Polyethylene Glycol 3350 17 GM PACKET PO (09:52)
[2024-09-16] MEDS: Bisacodyl 10 MG SUPP PR (09:53)
[2024-09-16] MEDS: Acetaminophen 500 MG TAB 1000 MG PO (12:02)
[2024-09-16 12:29] VITALS: BP 108/86; PULSE 90; RESP 16; TEMP 36.3; O2SAT 96
[2024-09-16] MEDS: Cyclobenzaprine 10 MG TAB PO (13:23)
[2024-09-16] MEDS: Lidocaine 5% Patch 1 PATCH TP (16:33)
--- NOTE | 2024-09-16 17:41 | W.PM.PROGNOT ---
Date of Service Date of service: 09/16/24 Time of Service: 17:41 Assessment and Plan Assessment and plan (1) Acute hyponatremia: Status: Resolved Assessment and plan: NA 137 (2) Alcohol intoxication: Status: Resolved (3) Contusion of hip, right: Status: Acute Assessment and plan: S/p fall Pain management with PRN tylenol hydromorphone and scheduled celebrex and gabapentin PT consult - pateint originally declined to work with PT, however today he is eager to work with them; he does not feel that he can manage at home. Care mgrs to send referrals for SNF. (4) Fall: Status: Acute Assessment and plan: Continue physical therapy: SNF for continued rehabilitation as per recommendation (5) Blunt head trauma: Status: Acute Assessment and plan: no post concussive symptoms (6) Paroxysmal A-fib: Status: Acute Assessment and plan: fully anticoagulated continue home meds (7) Deep vein thrombosis: Status: Chronic Assessment and plan: on apixaban (8) Nicotine dependence: Status: Acute Assessment and plan: PRN NRT (9) Chronic kidney disease: Status: Chronic Assessment and plan: Cr 1.1 (10) AAA (abdominal aortic aneurysm): Status: Chronic Assessment and plan: Hx of As per CT on 06/14/24- 3.5 cm Opt f/u unless symptomatic with vascular (11) HFrEF (heart failure with reduced ejection fraction): Status: Acute Assessment and plan: 07/2023 w LVEF 35- 40%- no S&S of decompensation continue outpatient management (12) Discharge planning issues: Status: Acute Assessment and plan: PT recommended SNF case management following with referrals sent and pending discussed with Dr. Guillaume Subjective Subjective Patient reports: no new complaints, tolerating liquids well, tolerating a regular diet and bowel movement; denies flatus, diarrhea, nausea, vomiting or shortness of breath Interval history since last seen: Patient continues to report right hip pain and continues to work with PT. Is requesting and willing to go to SNF Exam Narrative Exam Narrative: General: Thin, chronically ill-appearing male who appears older than stated age; in no acute distress Head: Atraumatic, normocephalic Skin: Ashen, warm, and dry. Eyes: Non-icteric, non-injected. Oral Mucosa: Moist. Neck: Full range of motion, no lymphadenopathy or stiffness. Respiratory: Even and unlabored respirations; no respiratory distress. Cardiovascular: Regular rate and rhythm; no murmurs, rubs, or gallops. Abdomen: Soft, non-tender, non-distended; no organomegaly. Extremities: No peripheral edema or cyanosis. Right hip pain with palpation, movement, or being stationary Neurologic: Awake, alert, and oriented ?3; no focal deficits. Psychiatric: Blunted mood and affect; appropriate behavior; no agitation or psychosis observed. Objective Last Vital Signs Temp 36.3 C L 09/16/24 12:29 Pulse 90 09/16/24 12:29 Resp 16 09/16/24 12:29 BP 108/86 09/16/24 12:29 Pulse Ox 96 09/16/24 12:29 Laboratory Results - last 24 hr 09/16/24 06:42 WBC 8.58 RBC 4.20 L Hgb 13.5 Hct 40.7 MCV 97 H MCH 32.1 MCHC 33.2 RDW 13.1 Plt Count 178 MPV 10.5 Immature Gran % 1.2 Neutrophils % 58.9 Lymphocytes % 21.3 Monocytes % 10.4 Eosinophils % 6.9 Basophils % 1.3 Nucleated RBC % 0.0 Absolute Neutrophils 5.06 Absolute Lymphocytes 1.83 Absolute Monocytes 0.89 H Absolute Eosinophils 0.59 Absolute Basophils 0.11 Sodium 137 Potassium 4.3 Chloride 103 Carbon Dioxide 24.3 Anion Gap 9.7 BUN 29 H Creatinine 1.1 Est GFR (CKD-EPI 2020) 72.67 Glucose 108 H Calcium 9.1 Magnesium 1.7 L PAWSS Have you Been Recently Intoxicated or Drunk Within the Last 30 days?: Yes Have you Ever Experienced Previous Episodes of Alcohol Withdrawal?: Yes Have you ever Experienced Withdrawal Seizures?: Unable to Obtain Have you ever Experienced Delirium Tremens(DT)s?: Yes Have you ever undergone Alcohol Rehabilitation Treatment (i.e, inpt ot outpatient treatment programs)?: No Have you ever Experienced Blackouts?: Yes Have you ever Combined Alcohol with other Downers within the last 90 days?: No Have you ever Combined Alcohol with any other Substance of Abuse during the last 90 days?: Unable to Obtain Positive Blood Alcohol level on Presentation? [PCS.BAL]: Yes Evidence of Increased Autonomic Activity (i.e. HR>120, tremor, sweating, agitation, nausea)?: No Result: 5 Time Spent with Patient Time Spent with Patient: 25-34 minutes Time was spent: preparing to see the patient(eg.review tests), ordering medications,tests, procedures, referring, communicating with other health hospice patient care secretary, indepentently interpreting results, counseling the patient and care coordination
[2024-09-16] MEDS: Atorvastatin 40 MG TAB 80 MG PO (19:42)
[2024-09-17 02:03] VITALS: BP 130/80; PULSE 75; RESP 16; TEMP 36.5; O2SAT 95
[2024-09-17] MEDS: Acetaminophen 500 MG TAB 1000 MG PO ×3 (04:10→15:15)
[2024-09-17] MEDS: HYDROmorphone 2 MG TAB PO ×3 (04:10→15:15)
[2024-09-17] MEDS: Lidocaine Patch Removal 1 EACH TP (04:12)
[2024-09-17 07:11] LABS: Abs Immature Grans 0.10 10^3/uL (0.0-0.06); HCT 40.0 % (40.0-50.0); HGB 13.2 g/dL (13.5-17.5); Immature Grans % 1.4 %; MCH 31.9 pg (27.0-33.0); MCHC 33.0 % (32.0-36.0); MCV 97 fL (80-95); MPV 10.6 fL (8.0-11.0); Platelet Count 210 10^3/uL (130-400); RBC 4.14 10^6/uL (4.36-5.78); RDW 13.2 % (11.8-14.1); RDW-SD 46.8 fL; WBC 7.29 10^3/uL (4.4-10.8)
[2024-09-17 07:26] LABS: Anion Gap 11.1 mmol/L (3-11); BUN 28 mg/dL (7-18); CO2 22.9 mmol/L (21.0-32.0); Calcium 8.9 mg/dL (8.5-10.1); Chloride 104 mmol/L (98-107); Estimated GFR 59.47 (mL/min/1.73m2); Glucose 137 mg/dL (74-106); Magnesium 1.7 mg/dL (1.8-2.4); Potassium 4.2 mmol/L (3.5-5.1); Sodium 138 mmol/L (136-145)
--- NOTE | 2024-09-17 08:13 | W.PM.PROGNOT ---
Date of Service Date of service: 09/17/24 Time of Service: 08:13 Objective Last Vital Signs Temp 36.5 C 09/17/24 02:03 Pulse 75 09/17/24 02:03 Resp 16 09/17/24 02:03 BP 130/80 09/17/24 02:03 Pulse Ox 95 09/17/24 02:03 Laboratory Results - last 24 hr 09/17/24 06:04 WBC 7.29 RBC 4.14 L Hgb 13.2 L Hct 40.0 MCV 97 H MCH 31.9 MCHC 33.0 RDW 13.2 Plt Count 210 MPV 10.6 Immature Gran % 1.4 Neutrophils % 54.4 Lymphocytes % 24.0 Monocytes % 12.1 Eosinophils % 7.0 Basophils % 1.1 Nucleated RBC % 0.0 Absolute Neutrophils 3.97 Absolute Lymphocytes 1.75 Absolute Monocytes 0.88 H Absolute Eosinophils 0.51 Absolute Basophils 0.08 Sodium 138 Potassium 4.2 Chloride 104 Carbon Dioxide 22.9 Anion Gap 11.1 H BUN 28 H Creatinine 1.3 Est GFR (CKD-EPI 2020) 59.47 Glucose 137 H Calcium 8.9 Magnesium 1.7 L PAWSS Have you Been Recently Intoxicated or Drunk Within the Last 30 days?: Yes Have you Ever Experienced Previous Episodes of Alcohol Withdrawal?: Yes Have you ever Experienced Withdrawal Seizures?: Unable to Obtain Have you ever Experienced Delirium Tremens(DT)s?: Yes Have you ever undergone Alcohol Rehabilitation Treatment (i.e, inpt ot outpatient treatment programs)?: No Have you ever Experienced Blackouts?: Yes Have you ever Combined Alcohol with other Downers within the last 90 days?: No Have you ever Combined Alcohol with any other Substance of Abuse during the last 90 days?: Unable to Obtain Positive Blood Alcohol level on Presentation? [PCS.BAL]: Yes Evidence of Increased Autonomic Activity (i.e. HR>120, tremor, sweating, agitation, nausea)?: No Result: 5
[2024-09-17] MEDS: Normal Saline Flush 10 ML SYR IVP (08:21)
[2024-09-17] MEDS: Nicotine 14 MG/24 HR PATCH TD (08:21)
[2024-09-17] MEDS: Polyethylene Glycol 3350 17 GM PACKET PO (08:21)
[2024-09-17 08:22] VITALS: PULSE 70
[2024-09-17] MEDS: Topiramate 50 MG TAB 150 MG PO (08:22)
[2024-09-17] MEDS: Digoxin 0.125 MG TAB PO (08:22)
[2024-09-17] MEDS: Thiamine 100 MG TAB PO (08:23)
[2024-09-17] MEDS: Potassium Chloride 20 MEQ TABCR 40 MEQ PO (08:23)
[2024-09-17] MEDS: Tamsulosin 0.4 MG CAPCR PO (08:23)
[2024-09-17] MEDS: Gabapentin 300 MG CAP PO ×2 (08:23→14:30)
[2024-09-17] MEDS: Metoprolol CR 50 MG TABCR PO (08:23)
[2024-09-17] MEDS: Apixaban 5 MG TAB PO (08:23)
[2024-09-17] MEDS: Cyclobenzaprine 10 MG TAB PO ×2 (08:23→14:30)
[2024-09-17] MEDS: Multivitamin TAB 1 TAB PO (08:23)
[2024-09-17] MEDS: Folic Acid 1 MG TAB PO (08:23)
[2024-09-17] MEDS: Pantoprazole 40 MG TABCR PO (08:24)
[2024-09-17] MEDS: Citalopram 20 MG TAB PO (08:24)
[2024-09-17] MEDS: Celecoxib 200 MG CAP PO (08:24)
[2024-09-17] MEDS: Magnesium Oxide 400 MG TAB PO (08:24)
[2024-09-17] MEDS: Ferrous Gluconate 324 MG TAB PO (08:24)
[2024-09-17] MEDS: Mupirocin 2% Oint. 22 GM TUBE TP (09:08)
[2024-09-17] MEDS: Magnesium Chloride 64 MG TABCR PO (09:49)
--- NOTE | 2024-09-17 09:50 | PTTR_ITS ---
PT Notes Visit Reasons: hyponatremia, fall, ambulatory dysfunction, alcoho Physical Therapy Inpatient Treatment Note Date: 09/17/2024 Precautions: Fall. Standard. WBAT on the R LE with AD. LVEF of 35-40%. Subjective: Much improved tolerance to pain with increased independence with mobility per formance. Objective: General Observation: Appeared less anxious and more able to participate in therapy today. Becoming more participative and motivated. R leg and foot redness almost resolved, swelling decreasing. Mental Status: Alert and oriented as to person and place. Pain: 5-6/10 with weight bearing Vital Signs: Closely monitored by nursing staff Bed Mobility/Transfers: Minimal cueing provided for use of B hands as needed for support, movement sequence, AD management, and posture to reduce fall risk and minimize pain report Supine to sit stand by assist Sit to stand supervision with FWW Stand to sit supervision with FWW Gait: 100 feet + 100 feet using front-wheeled walker with stand by assist. Antalgia diminishing. Step length and height improving on the R. Moderate verbal cueing for safe limb movement sequence, walker management, posture, hand placement to minimize pain report and reduce fall risk. Stairs: Guided patient with safe and correct negotiation 3 x 4 inch steps and 2 x 6 inch steps holding onto bilateral rails with step to gait pattern requiring only standby assist with minimal verbal cueing provided for limb movement sequence, hand placement, and a posture to minimize pain reported and address fall risk. Balance: Sitting static: Good Sitting dynamic: Good Standing static: Fair Standing dynamic: Fair Assessment: Pre-medication for pain continues to be needed to effectively and safely participate in PT. Most recent imaging showed no fracture nor dislocation in R LE. Has chronic L foot drop. Deferred plan to use brace as patient has not d emonstrated any buckling or weakness in the R knee yesterday and today. PLAN: Progress functional mobility level as tolerated. Continue to pre-medicate for pain. Trial stairs in the next sessions. DISCHARGE RECOMMENDATIONS: PT for continued progression in strength, balance, activity tolerance, and AD management in anticipation of return to home when safe. TREATMENT CODE/TIME: 15085 x 38 minutes for 3 units(09:50-10:28).
--- NOTE | 2024-09-17 11:20 | W.PM.DS.N ---
Date of service: 09/17/24 Time of Service: 11:45 DS: Diagnosis Discharge Diagnosis (1) Acute hyponatremia: Status: Resolved (2) Alcohol intoxication: Status: Resolved (3) Contusion of hip, right: Status: Acute (4) Fall: Status: Acute (5) Blunt head trauma: Status: Acute (6) Paroxysmal A-fib: Status: Acute (7) Deep vein thrombosis: Status: Chronic (8) Nicotine dependence: Status: Acute (9) Chronic kidney disease: Status: Chronic (10) AAA (abdominal aortic aneurysm): Status: Chronic (11) HFrEF (heart failure with reduced ejection fraction): Status: Acute (12) Discharge planning issues: Status: Acute Discharge Plan Disposition Patient Disposition: Home W/Home Health Services Condition: Improving Discharge Details Reason For Visit: hyponatremia, fall, ambulatory dysfunction, alcoho Admit Date/Time: 09/10/24 17:13 Admit Provider: Harinder Amaya Attending Provider: Harinder Amaya Primary Care Provider: Sherri Guzman V Hospital Course Hospital Course: The patient is a 69-year-old male with a past medical history significant for nicotine dependence, alcohol dependence, chronic obstructive pulmonary disease (COPD), heart failure with reduced ejection fraction (HFrEF), atrial fibrillation, deep vein thrombosis, and a previous right hip intratrochanteric fracture s/p ORIF (June 2024). The patient presented to the emergency department with the chief complaint of a fall, alcohol intoxication, moderate right hip pain, and ambulatory dysfunction. The fall was associated with a significant alcohol ingestion, and the patient was found to be intoxicated with an alcohol level of 320 mg/dL. Additionally, lab results showed acute hyponatremia (Na 122), which required further management. The patient was also noted to have difficulty standing or ambulating and was admitted to the medical-surgical floor for observation and management of alcohol withdrawal, hyponatremia, and weakness. The patient had negative CT and X-ray imaging for acute findings related to the fall, and neurologically, the patient was stable. The patient denied any dizziness, visual changes, chest pain, or significant GI symptoms except for liquid stool staining on the right lower leg, which was consistent with incontinence secondary to the patient's condition. Hospital Course: The patient?s hospital stay was complicated by multiple chronic and acute conditions. Shields points of management included: Acute Hyponatremia: The patient was placed on a fluid restriction of 1L per 24 hours and received normal saline at 100cc/hr for correction of sodium imbalance. Sodium levels were rechecked, and correction was achieved. Alcohol Intoxication & Alcohol Withdrawal: Given the patient?s alcohol level of 320 mg/dL, alcohol withdrawal was assessed using the CIWA scale. Phenobarbital was administered as per protocol to manage withdrawal symptoms. The patient was monitored on telemetry and SPO2 monitoring for any signs of worsening withdrawal. Contusion of Right Hip: The patient sustained a right hip contusion following the fall. Pain management with PRN acetaminophen and Ketorolac was initiated, and the patient was monitored for any signs of worsening pain or discomfort. Blunt Head Trauma: A CT scan of the head was performed to rule out fractures, and the findings were unremarkable. Neurological exams remained stable throughout the hospitalization, and no intervention was required. Deep Vein Thrombosis: The patient?s DVT was managed with resumption of Eliquis. The patient was closely monitored for any signs of thromboembolic complications. Heart Failure with Reduced Ejection Fraction (HFrEF): The patient?s chronic heart failure was managed conservatively with optimization of fluids and medications. The patient was closely monitored for any signs of acute decompensation. Chronic Kidney Disease (CKD): The patient?s kidney function remained stable throughout the hospitalization, with no signs of acute kidney injury. Kidney function was closely monitored with daily labs. Discharge Medications: Eliquis Acetaminophen (PRN for pain management) Condition at Discharge: Stable, non-acute The patient is hemodynamically stable and has made progress in the management of hyponatremia and alcohol withdrawal. The patient is stable for discharge with appropriate follow-up plans in place. Home health PT, OT, RN, PASSENGER CAR UPHOLSTERER APPRENTICE ordered. Recommendations for Follow Up Recommended tests to be ordered by follow up provider: BMP 1 week Home Meds and New Rx's Prescriptions: New Eliquis 5 mg Tablet 5 mg PO BID Qty: 60 0RF potassium chloride [Klor-Con M20] 20 mEq tablet,ER particles/crystals 20 meq PO DAILY Qty: 30 0RF Continued gabapentin 300 mg capsule 300 mg PO TID Patient Comments: 08/23/23 renal dosing per [facility] d/c RH, 06/07/24 300mg TID qty 270 per [facility] thiamine HCl (vitamin B1) 100 mg tablet 100 mg PO DAILY Patient Comments: 08/23/23 per [facility] d/c summary RH tamsulosin 0.4 mg capsule 0.4 mg PO DAILY ferrous gluconate 324 mg (37.5 mg iron) tablet 324 mg PO Q48H Patient Comments: Prescribed once daily Per [facility] metoprolol succinate 25 mg tablet extended release 24 hr 50 mg PO DAILY magnesium oxide 400 mg magnesium tablet 400 mg PO BID Patient Comments: Per [facility] cyclobenzaprine 10 mg Tablet 10 mg PO TID PRN PRN Patient Comments: Per [facility] citalopram 20 mg Tablet 20 mg PO QAM pantoprazole 40 mg Tablet,Delayed Release (Dr/Ec) 40 mg PO DAILY Patient Comments: Per [facility] 05/18/24 qty 90 topiramate 50 mg Tablet 150 mg PO DAILY Patient Comments: Per [facility] atorvastatin [Lipitor] 80 mg tablet 80 mg PO QPM digoxin [Digitek] 125 mcg (0.125 mg) tablet 125 mcg PO DAILY albuterol sulfate 90 mcg/actuation HFA aerosol inhaler 2 inh inhalation Q4H PRN PRN lidocaine 5 % adhesive patch,medicated See Rx Instructions .ROUTE .COMPLEX Patient Comments: Was taking at [facility] in June, no current Rx Rx Instructions: leave on most painful area for up to 12 hrs multivitamin Tablet 1 tab PO DAILY melatonin 3 mg tablet 6 mg PO HS PRN PRN nicotine 14 mg/24 hr patch 24 hour 1 patch transdermal DAILY celecoxib [Celebrex] 100 mg Capsule 200 mg PO BID Qty: 30 0RF Rx Instructions: Re-evaluate need as per PCP for refill hydromorphone 2 mg Tablet 2 mg PO Q6H PRNQty: 20 0RF Rx Instructions: Refill as per outpatient provider- The patient was on chronic Rx for hydrocodone-APAP 10/325 mg (#112 tabs for 28 days supply) that was switched to hydromorphone at [facility] Banophen Anti-Itch 2-0.1 % Cream 1 applic topical BID PRN PRNQty: 28 0RF enoxaparin 30 mg/0.3 mL Syringe 30 mg subcut Q12H Qty: 8.1 0RF Rx Instructions: Until Jul 16 2024 then stop and take Eliquis 5 mg oral BID starting on Jul 17 2024 AM acetaminophen 500 mg Tablet 1,000 mg PO Q6H PRN hydrocodone-acetaminophen 10-325 mg tablet 1 tab PO Q6H PRN (Reason: pain) Patient Comments: Per [facility] mupirocin [Centany] 2 % ointment 1 applic topical TID Qty: 15 0RF Discharge Instructions Additional Instructions: Continue home meds. Home health will contact you to arrange an appointment to come to your home and evaluate you. Follow a heart-healthy, low-sodium diet. Avoid alcohol consumption until further follow-up with your primary care physician. Activity: Begin with limited activity, as tolerated. Physical Therapy to assist with mobility and rehabilitation of the right hip. Avoid any strenuous activities until follow-up. Take acetaminophen for pain relief as prescribed. Cardiology: Follow up with cardiology for management of heart failure and atrial fibrillation. Nephrology: Follow up for chronic kidney disease management. Physical Therapy: Home health will call you to start therapy of the right hip and mobility training. Primary Care Physician: Follow up within 1-2 weeks for overall health assessment. Signs & Symptoms to Monitor: Monitor for any signs of worsening alcohol withdrawal (delirium tremens, agitation, confusion, or tremors). Watch for signs of deep vein thrombosis (swelling, redness, or pain in the legs). Seek immediate medical attention for any chest pain, shortness of breath, dizziness, or changes in vision. Referrals: Sherri Guzman MD [Primary Care Provider, Medicine] Referral Note: 1-2 weeks post hospitalization for hyponatremia. Started on potassium 20 meq daily Follow up BMP results Activity:: Activity as Tolerated Equipment/Supplies:: Walker Diet:: As Tolerated Discharge Orders Discharge Orders: Discharge Order (Routine); Ordered 09/17/24 Ordered By: Mary Ann Nettles Other Ambulatory Orders: Basic Metabolic Panel (Routine) Timeframe: 1 Week Facility: [facility] - Location: Laboratory Outpatient - [facility] Ordered By: Mary Ann Nettles DS: Summary Time Spent with Patient providing and/or coordinating discharge services: Less than 30 minutes Status at Discharge Functional status at discharge: uses cane/walker Overall status at discharge: patient is progressing back to baseline Mental Status: mental status grossly normal Speech and Movement: speech and movement normal Mood: congruent mood Affect: normal affect Quality:SDOH Health Related Social Needs: Health related social needs food insecurity transpo insecurity house/econ circumstance daily activities lonely/isolated Health related social needs details 19 Stairs to get into house at home. lives alone in apartment, on Social security, friends have meals a couple times a week, uses [employer] for transportation, Would benefit from meals on wheels, pt would prefer not to have to move due to stairs and cost of apartment Exam Narrative Exam Narrative: General: Thin, chronically ill-appearing male who appears older than stated age; in no acute distress Head: Atraumatic, normocephalic Skin: Ashen, warm, and dry. Eyes: Non-icteric, non-injected. Oral Mucosa: Moist. Neck: Full range of motion, no lymphadenopathy or stiffness. Respiratory: Even and unlabored respirations; no respiratory distress. Cardiovascular: Regular rate and rhythm; no murmurs, rubs, or gallops. Abdomen: Soft, non-tender, non-distended; no organomegaly. Extremities: No peripheral edema or cyanosis. Right hip pain with palpation, movement, or being stationary Neurologic: Awake, alert, and oriented ?3; no focal deficits. Psychiatric: Blunted mood and affect; appropriate behavior; no agitation or psychosis observed. Psych Mental Status: mental status grossly normal Speech and Movement: speech and movement normal Mood: congruent mood Affect: normal affect DS: Data Vitals/I&O Vitals and I&O: Vital Signs Temperature 36.5 C 09/17/24 02:03 Temperature Source Tympanic 09/17/24 02:03 Pulse 70 09/17/24 08:22 Pulse Rhythm Irregular 09/11/24 14:01 Pulse 97 H 09/11/24 13:20 Respiratory Rate 16 09/17/24 02:03 Respiratory Effort Normal, Non-Labored 09/11/24 14:01 Respiratory Depth Normal 09/11/24 14:01 Respiratory Pattern Normal 09/11/24 14:01 Blood Pressure 130/80 09/17/24 02:03 Blood Pressure Mean 96 09/17/24 02:03 Blood Pressure Position Supine 09/10/24 13:48 Pulse Oximetry 95 09/17/24 02:03 Oxygen Delivery Method Room Air 09/17/24 02:03 Oxygen Flow Rate 0 09/17/24 02:03 Pain Level 9 09/17/24 09:50 Comment pt refused vitals 0300 09/16/24 03:00 Intake & Output 09/16/24 09/16/24 09/17/24 11:59 23:59 11:59 Intake Total 490 / 890 400 / 890 520 / 520 Output Total 500 / 900 400 / 900 400 / 400 Balance -10 / -10 0 / -10 120 / 120 Intake: IV 0 / 0 Oral 490 / 890 400 / 890 520 / 520 Output: Urine 500 / 900 400 / 900 400 / 400 Other: Urine Color Yellow Yellow Urine Appearance Clear Clear Urine Odor Normal Comment pt urinated in the toilet, was not able to assess urine x 1 in toilet voided Stool Size Moderate Stool Characteristics Formed Brown Data Completed and Pending Labs on day of discharge: Labs from last 24 hours 09/17/24 06:04 WBC 7.29 RBC 4.14 L Hgb 13.2 L Hct 40.0 MCV 97 H MCH 31.9 MCHC 33.0 RDW 13.2 Plt Count 210 MPV 10.6 Immature Gran % 1.4 Neutrophils % 54.4 Lymphocytes % 24.0 Monocytes % 12.1 Eosinophils % 7.0 Basophils % 1.1 Nucleated RBC % 0.0 Absolute Neutrophils 3.97 Absolute Lymphocytes 1.75 Absolute Monocytes 0.88 H Absolute Eosinophils 0.51 Absolute Basophils 0.08 Sodium 138 Potassium 4.2 Chloride 104 Carbon Dioxide 22.9 Anion Gap 11.1 H BUN 28 H Creatinine 1.3 Est GFR (CKD-EPI 2020) 59.47 Glucose 137 H Calcium 8.9 Magnesium 1.7 L PFSH All Active Problems (Updated 09/14/24 @ 16:39 by Lea Basurto NP) Discharge planning issues (Acute) HFrEF (heart failure with reduced ejection fraction) (Acute) Contusion of hip, right (Acute) Fall (Acute) Blunt head trauma (Acute) Urinary tract infection (Acute) Cellulitis of right lower leg (Acute) Stage II pressure ulcer of sacral region (Acute) Essential hypertension (Acute) AAA (abdominal aortic aneurysm) (Chronic) Deep vein thrombosis (Chronic) Nicotine dependence (Acute) Paroxysmal A-fib (Acute) Acute pulmonary embolus (Acute) Hematoma of right thigh (Acute) Fracture, intertrochanteric, right femur (Acute) Acute urinary retention (Acute) Cerebral cortical contusion-no coma (Acute) Fall (Acute) Closed fracture of right hip (Acute) Recurrent epistaxis (Acute) Chronic kidney disease (Chronic) Heart failure with reduced ejection fraction (Acute) Hepatitis C (Chronic) Per H&P: s/p tx. . He had an abc CT earlier this year which showed a normal liver. Normal anion gap metabolic acidosis (Acute) High anion gap metabolic acidosis (Acute) Lactic acidosis (Acute) Coagulopathy (Acute) Leukocytosis (Acute) Hyperphosphatemia (Acute) Hypocalcemia (Acute) Encephalopathy (Acute) Shock circulatory (Acute) Hyperkalemia (Acute) Acute renal failure (Acute) Acute liver failure (Acute) HFrEF (heart failure with reduced ejection fraction) (Acute) Anemia due to blood loss (Acute) Elevated liver enzymes (Acute) Acute posterior epistaxis (Acute) Acute anterior epistaxis (Acute) COPD (chronic obstructive pulmonary disease) (Chronic) Closed right clavicular fracture (Acute ~11/2021) Right shoulder pain (Acute) CHF (congestive heart failure) (Chronic) No-show for appointment (Acute) Left leg weakness (Acute) MCL sprain of right knee (Acute) Alcohol abuse (Chronic) Chest discomfort (Chronic) Acute on chronic diastolic heart failure (Acute) Bilateral pleural effusion (Acute) Falls (Acute) Pulmonary nodule (Acute) Acute respiratory failure with hypoxia (Acute) Pneumonia (Acute) Acute respiratory distress (Acute) Femur fracture, right (Acute) Fracture, rib (Acute) A-fib (Chronic) Laceration of digital nerve of left thumb (Acute) Gastritis and duodenitis (Acute) Medical History JOS (acute kidney injury) Leg edema Cardiogenic shock Tobacco use Back pain Obesity Chronic pain Asthma Adjustment disorder Pain in left wrist Right hip pain Insomnia Medication monitoring encounter History of depression Opioid withdrawal Cataract Blurred vision Patella-femoral syndrome Trochanteric bursitis Knee pain, right Rib pain Hx of viral pneumonia Lumbar radiculopathy Cocaine abuse Lightheadedness Abdominal pain in male Positive urine drug screen Dyspnea on exertion Voiding dysfunction Clavicle pain Arthritis Neck fracture Per pt. states he broke his nevk 5-6 years ago. 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) As treatment for proximal humerus fx (DOI: 11/11/2021) History of surgery on wrist History of cataract surgery History of cataract surgery History of hand surgery Social History Smoking/Tobacco Use Status: Current every day Tobacco Type: cigarettes Smoking risk assessment performed?: Yes Alcohol Intake: current Alcohol Intake frequency: 3 or more drinks per day Alcohol type: beer Drug use: Current Sobriety Substance use type: does not use and unknown Housing: apartment Current gender identity: male Do you feel safe at home: Yes Do you feel safe in your relationship?: Yes Additional Social history: lives alone Time Spent with Patient Time Spent with Patient: 45-69 minutes Time was spent: preparing to see the patient(eg.review tests), ordering medications,tests, procedures, referring, communicating with other health family day carer, indepentently interpreting results, counseling the patient and care coordination
[2024-09-17 11:33] VITALS: BP 109/77; PULSE 73; TEMP 36.8; O2SAT 97
--- NOTE | 2024-09-17 11:39 | PDOC.HHF2F_ITS ---
Home Health Referral Home Health Orders Clinical synopsis of why skilled professionals are needed: The patient is a 69-year-old male with a past medical history significant for nicotine dependence, alcohol dependence, chronic obstructive pulmonary disease (COPD), heart failure with reduced ejection fraction (HFrEF), atrial fibrillation, deep vein thrombosis, and a previous right hip intratrochanteric fracture s/p ORIF (June 2024). The patient presented to the emergency department with the chief complaint of a fall, alcohol intoxication, moderate right hip pain, and ambulatory dysfunction. The fall was associated with a significant alcohol ingestion, and the patient was found to be intoxicated with an alcohol level of 320 mg/dL. Additionally, lab results showed acute hyponatremia (Na 122), which required further management. The patient was also noted to have difficulty standing or ambulating and was admitted to the medical-surgical floor for observation and management of alcohol withdrawal, hyponatremia, and weakness. The patient had negative CT and X-ray imaging for acute findings related to the fall, and neurologically, the patient was stable. The patient denied any dizziness, visual changes, chest pain, or significant GI symptoms except for liquid stool staining on the right lower leg, which was consistent with incontinence secondary to the patient's condition. Hospital Course: The patient?s hospital stay was complicated by multiple chronic and acute conditions. Shields points of management included: Acute Hyponatremia: The patient was placed on a fluid restriction of 1L per 24 hours and received normal saline at 100cc/hr for correction of sodium imbalance. Sodium levels were rechecked, and correction was achieved. Alcohol Intoxication & Alcohol Withdrawal: Given the patient?s alcohol level of 320 mg/dL, alcohol withdrawal was assessed using the CIWA scale. Phenobarbital was administered as per protocol to manage withdrawal symptoms. The patient was monitored on telemetry and SPO2 monitoring for any signs of worsening withdrawal. Contusion of Right Hip: The patient sustained a right hip contusion following the fall. Pain management with PRN acetaminophen and Ketorolac was initiated, and the patient was monitored for any signs of worsening pain or discomfort. Blunt Head Trauma: A CT scan of the head was performed to rule out fractures, and the findings were unremarkable. Neurological exams remained stable throughout the hospitalization, and no intervention was required. Deep Vein Thrombosis: The patient?s DVT was managed with resumption of Eliquis. The patient was closely monitored for any signs of thromboembolic complications. Heart Failure with Reduced Ejection Fraction (HFrEF): The patient?s chronic heart failure was managed conservatively with optimization of fluids and medications. The patient was closely monitored for any signs of acute decompensation. Chronic Kidney Disease (CKD): The patient?s kidney function remained stable throughout the hospitalization, with no signs of acute kidney injury. Kidney function was closely monitored with daily labs. Discharge Medications: Eliquis Acetaminophen (PRN for pain management) Condition at Discharge: Stable, non-acute The patient is hemodynamically stable and has made progress in the management of hyponatremia and alcohol withdrawal. The patient is stable for discharge with appropriate follow-up plans in place. Home health PT, OT, RN, SCHOOL GUIDANCE COUNSELOR ordered. Medical diagnosis necessitation home health referral: Hyponatremia, ambulatory dysfunction, weakness Registered Nurse: Check all that apply Assess for exacerbation of medical condition, instruct patient/caregivers on signs and symptoms to report for early detection: Ordered Other: BMP in 5 days Physical Therapist: Check all that apply Increase strength & endurance for safe mobility at home: Ordered To design/establish home maintenance program: Ordered Fall reduction therapy program for patient with history of frequent falls: Ordered Home safety evaluation and teaching/gait training including stair management (if applicable): Ordered Occupational Therapist: Evaluate and treat for patient unable to perform ADL/IADL/self-care: Ordered Upper extremity strengthening, range and motion: Ordered Tissue Recovery Technician: Assist with community resources: Ordered Assist with computer terminal operator care planning: Ordered Home Bound Status Requires the aid of supportive device (check all that apply): Walker Assistance of another person (Describe assistance and medical necessity): Frequent falls - requires walker and one person assist. Describe why leaving home would require a considerable and taxing effort: Requires frequent rest periods and Safety Concerns: describe Encounter Date and Reason: I certify that a FTF encounter for this patient was performed on September 17, 2024 and that such encounter was related to the primary reason the patient requires home health services. The encounter was conducted in the following manner: * By me as the certifying physician, HEAD MECHANIC, PA or * By an inpatient physician, HEAD MECHANIC or PA during an inpatient stay who communicated findings to me, Certification And Authentication I certify that I composed the above information based on my clinical judgment relating to this patient's medical condition and, if applicable, clinical findings communicated to me by the NPP or inpatient physician who performed the FTF encounter. Name of Provider that will be monitoring home health services: Sherri Guzman
--- NOTE | 2024-09-17 15:25 | PDOC.CMDIS ---
Date of service: 09/17/24 Time of Service: 15:25 LACE Index Scoring Tool Questions: Length of Stay (in days): 7 - 13 Was the patient admitted via the E.D.?: Yes Comorbidities: Congestive Heart Failure, Chronic Pulmonary Disease and Liver or Renal Disease E.D. Visits: 3 Answers: Total Score: 16 Risk of Readmission: High Risk Care Management Discharge Plan Reason for Hospitalization: hyponatremia, ETOH withdrawal, s/p fall Discharge Plan: Geovani will be discharged home this evening with continuation of his HH services. CM reached out this morning to all of the SNF's that referrals were sent to. He did not receive a bed offer at any of the SNFs. He will continue per his discharge plan of care and f/u with his PCP on 09/23. Geovani will be driven home by his friend. Geovani is agreeable to this plan. Patient/Family Education Needs: Review of discharge instructions, activity, limitations, and discuss, Ask me 3. Services Needed at Discharge: Home Health Care Services (RN, PT, OT, POLYSOMNOGRAPHY TECHNICIAN) SDOH Health Related Social Needs: Health related social needs food insecurity transpo insecurity house/econ circumstance daily activities lonely/isolated Health related social needs details 19 Stairs to get into house at home. lives alone in apartment, on Social security, friends have meals a couple times a week, uses [employer] for transportation, Would benefit from meals on wheels, pt would prefer not to have to move due to stairs and cost of apartment
== END 2024-09-17 16:40 | disposition home health service (06) | DRG 897 ==
LOC: ER 17:26 → EDHOLD 18:25 → MS 09-11 13:50
PROVIDERS: Nurse Practitioner Acute Care; Admitting Provider Family Medicine; Emergency Provider Emergency Medicine; PCP Family Medicine; Responsible Provider Nurse Practitioner Family; Visit Provider Family Medicine
DX: E87.1 Hypo-osmolality and hyponatremia (principal); S70.01XA Contusion of right hip, initial encounter; W19.XXXA Unspecified fall, initial encounter; S09.8XXA Other specified injuries of head, initial encounter; F17.210 Nicotine dependence, cigarettes, uncomplicated; I48.0 Paroxysmal atrial fibrillation; N18.9 Chronic kidney disease, unspecified; I71.40 Abdominal aortic aneurysm, without rupture, unspecified; F10.229 Alcohol dependence with intoxication, unspecified; Z59.819 Housing instability, housed unspecified; I13.0 Hypertensive heart and chronic kidney disease with heart failure and stage 1 through stage 4 chronic kidney disease, or unspecified chronic kidney disease; I50.42 Chronic combined systolic (congestive) and diastolic (congestive) heart failure; F10.239 Alcohol dependence with withdrawal, unspecified; Y90.8 Blood alcohol level of 240 mg/100 ml or more; Z59.41 Food insecurity; Z59.82 Transportation insecurity; R45.89 Other symptoms and signs involving emotional state; L89.152 Pressure ulcer of sacral region, stage 2; Z86.711 Personal history of pulmonary embolism; Z86.718 Personal history of other venous thrombosis and embolism; J44.9 Chronic obstructive pulmonary disease, unspecified; Z96.612 Presence of left artificial shoulder joint; Z79.01 Long term (current) use of anticoagulants; R53.1 Weakness; R26.2 Difficulty in walking, not elsewhere classified
CPT/HCPCS: 00123; 36415; 73552; 80048; 80053; 96360; 97110; 97162; 97530; 99285; J1650; 70450; 70486; 72125; 72170; 80320; 81003; 83735; 84484; 85025; 99223; 99232; 99233; 99238; J2405; J2560; J3490; J7613

== ENCOUNTER 2024-09-20 10:44 | Outpatient (REF) | payer MEDICARE, MEDICAID, SELFPAY ==
[2024-09-20 11:23] LABS: Glucose Negative (Negative)
[2024-09-20 11:31] LABS: C & S Indicated? Yes; RBC 0-2 HPF (0-2); WBC 20-50 HPF (0-5)
== END 2024-09-20 10:45 | disposition home or self-care (01) ==
LOC: NCHCN 10:44
PROVIDERS: PCP Family Medicine; Visit Provider Family Medicine
DX: R30.0 Dysuria (principal); R82.89 Other abnormal findings on cytological and histological examination of urine
CPT/HCPCS: 87077; 81003; 81015; 87086; 87186

== ENCOUNTER 2024-10-02 17:55 | Outpatient (REF) | payer MEDICARE, MEDICAID, SELFPAY ==
[2024-10-02 16:10] LABS: Anion Gap 10.8 mmol/L (3-11); BUN 21 mg/dL (7-18); CO2 23.2 mmol/L (21.0-32.0); Calcium 9.0 mg/dL (8.5-10.1); Chloride 100 mmol/L (98-107); Estimated GFR 72.67 (mL/min/1.73m2); Glucose 77 mg/dL (74-106); Magnesium 2.0 mg/dL (1.8-2.4); Potassium 4.2 mmol/L (3.5-5.1); Sodium 134 mmol/L (136-145)
== END 2024-10-02 17:56 | disposition home or self-care (01) ==
LOC: NCHCN 17:55
PROVIDERS: PCP Family Medicine; Visit Provider Family Medicine
DX: Z87.440 Personal history of urinary (tract) infections (principal); E83.42 Hypomagnesemia; I48.91 Unspecified atrial fibrillation
CPT/HCPCS: 80048; 81003; 83735

== ENCOUNTER 2024-10-06 16:04 | Outpatient (REF) | payer MEDICARE, MEDICAID, SELFPAY | END 2024-10-06 16:05 | disposition home or self-care (01) | LOC: NCHCN 16:04 | PROVIDERS: PCP Family Medicine; Visit Provider Family Medicine | DX: E83.42 Hypomagnesemia (principal); R82.89 Other abnormal findings on cytological and histological examination of urine | CPT/HCPCS: 87086 ==

== ENCOUNTER 2024-11-18 20:15 | Emergency (ER) | payer MEDICARE, MEDICAID, SELFPAY ==
[2024-11-18 20:14] VITALS: BP 130/92; PULSE 92; RESP 20; TEMP 36.7; O2SAT 93
--- NOTE | 2024-11-18 21:00 | DI.CT_ITS ---
Exam(s) CT HEAD CERVICAL SPINE WO EXAM: CT HEAD CERVICAL SPINE WO CLINICAL HISTORY: fall,. TECHNIQUE: Imaging Protocol: Axial computed tomography images with coronal and sagittal reformatted images were created and reviewed COMPARISON: CT CT HEAD CERV SPINE FACIAL WO from 09/10/2024 FINDINGS: BRAIN: There are no skull fractures nor fluid in the visualized paranasal sinuses. There is no evidence of intracranial hemorrhage, mass effect, or shift of midline structures. There are no extra-axial fluid collections. The ventricles are not enlarged or shifted and there is no blood within the ventricular system nor within the basal cisterns. There is moderate amount of periventricular hypodensity consistent with chronic small vessel disease and unchanged from 09/10/2024. There is heavy calcification of the internal carotid arteries and vertebral arteries in skull base.\ CERVICAL SPINE: Motion artifact evident. No evidence obvious fracture, listhesis, nor offset of the spinal laminar line. No prevertebral soft tissue swelling. Heavy calcification is noted in the anterior longitudinal ligament at this CT 5- 6 level. Also anterior osteophytes at other levels. There is some facet arthropathy evident, most prominent at the C2-3 level. There is no significant facet joint malalignment. No significant osseous lesions evident. IMPRESSION: No acute intracranial findings on this noninfused CT scan of the brain.Chronic small-vessel white matter ischemic changes again noted. There is heavy calcification noted within the internal carotid arteries and vertebral arteries at the skull base indicating significant atherosclerotic involvement of these vessels. No evidence of cervical spine fracture, malalignment, nor acute compromise of the cervical spinal canal. However, there is chronic multilevel degenerative disc disease and some facet arthropathy. Preliminary virtual Radiology report was reviewed. RADIATION DOSE DELIVERED: 1,224.63mGy.cm Total DLP DATA REPOSITORY: All CT scans at this facility are submitted to the National Radiology Data Registry (NRDR) Dose Index Registry (DIR) with the [employer] (ACR). RADIATION OPTIMIZATION: All CT scans at this facility use at least one of these dose optimization techniques: automated exposure control; mA and/or kV adjustment per patient size (includes targeted exams where dose is matched to clinical indication); or iterative reconstruction.
--- NOTE | 2024-11-18 21:45 | DI.RAD_ITS ---
Exam(s) XR FEMUR RT EXAM: XR FEMUR RT CLINICAL HISTORY: fall, hip and leg injury. TECHNIQUE: 2D digital imaging was performed. COMPARISON: CR XR FEMUR RT from 09/10/2024 FINDINGS: 3 views There is a long intramedullary cassia in the femur supporting in lag screw across a healing intertrochanteric fracture of the right hip. There appears to be progression of healing when compared to 09/10/2024. Avulsed fracture of the lesser trochanter is again noted as well dystrophic calcification. No evidence of hardware migration or loosening and no obvious new fractures evident. IMPRESSION: Healing ORIF right hip intertrochanteric fracture. No acute fractures evident. DATA REPOSITORY: RADIATION DOSE DELIVERED:
--- NOTE | 2024-11-18 21:45 | DI.CT_ITS ---
Exam(s) CT CHEST/ABD/PEL W EXAM: CT CHEST/ABD/PEL W CLINICAL HISTORY: fall on eliquis. TECHNIQUE: Imaging Protocol: Axial computed tomography images with coronal and sagittal reformatted images were created and reviewed CONTRAST MATERIAL: Intravenous: Omnipaque 350 Contrast volume:75 mL Oral: None COMPARISON: CT CTA THORAX/ABDOMEN/PELVIS from 11/03/[address] ABDOMEN PELVIS W from 07/04/2019 FINDINGS: CHEST: LUNGS: There is a small ground-glass nodular density in the right upper lobe measuring 6 mm.. Also mild ground-glass infiltrate noted in the anterior segment of the right upper lobe. There are multiple calcified benign granulomas in the right middle lobe. No pleural effusion on either side. In the opposite-left lung there are few small granulomas.. No pleural effusions. MEDIASTINUM: There is no hilar nor mediastinal adenopathy. Visualized thyroid unremarkable. CARDIAC: Heart size upper normal. No pericardial effusion. The diameter of the ascending thoracic aorta is enlarged, measuring 4.2 cm.It the diameter of the mid aortic arch also enlarged at 3.3 cm. The diameter of the descending thoracic aorta measures 2.8 cm. There is no evidence of aortic dissection. OSSEOUS: Left shoulder reverse prosthesis.. No rib fractures. No thoracic compression fractures. No significant osseous lesions. ABDOMEN: No ascites. No evidence of bowel wall nor mesenteric hematomas. LIVER: Intact. No laceration or subcapsular hematomas. No ominous lesions. GALLBLADDER/BILIARY: There are multiple gallstones in the gallbladder lumen. Gallbladder is not distended nor edematous. CBD is not dilated. PANCREAS: There is a cystic structure in the head of the pancreas measuring 2 by 1 cm. This was not evident on prior abdominal CT scan of October 2015. CT scan of July 2019 also did not reveal similar finding. SPLEEN: Spleen is not enlarged. There are no intrasplenic lesions. Splenic and portal veins are patent. ADRENALS: There are no significant adrenal masses. KIDNEYS: Cortical scarring both kidneys is noted and progressed from 2019. No calculi. No hydronephrosis. No solid renal masses evident.. ABDOMINAL AORTA: Abdominal aorta is again noted be atherosclerotic and enlarged. Aneurysm has increased in size, presently exhibiting maximum diameter of 3.4 cm. Common iliac arteries are also mildly enlarged. LYMPH NODES: There is no retroperitoneal nor paraaortic adenopathy. ABDOMINAL WALL: No evidence of significant anterior abdominal wall nor inguinal hernia. GI: There is no evidence of bowel obstruction. PELVIS: LYMPH NODES: There is no intrapelvic nor inguinal adenopathy. GI: No evidence of appendicitis.No evidence of sigmoid diverticulitis. URINARY BLADDER: Uniform thickening of the bladder wall. Bladder base indentation by enlarged prostate. The pelvic ureters are not dilated. REPRODUCTIVE: Prostate gland is enlarged. There is no obturator adenopathy. OSSEOUS: No significant osseous lesions. Schmorl's node invagination of superior endplate of L2 is unchanged. Right hip ORIF hardware. IMPRESSION: 1. No significant acute trauma sequelae in the chest, abdomen, and pelvis. 2. Abdominal aortic aneurysm measuring 3.4 cm. Also aneurysmal dilatation of the ascending thoracic aorta which measures 4.2 cm. There is no dissection. No pericardial effusion. 3. There is a 2 x 1 cm cystic lesion in the pancreatic head which was not evident on prior CT scan of 2019. Further imaging recommended with contrast infused MRI. This may be cystic neoplasm of the pancreas. Cholelithiasis noted. No evidence of acute cholecystitis. 4. Has been progressive cortical thinning and cortical scarring of both kidneys. No hydronephrosis. No masses. There is relatively uniform thickening of the urinary bladder wall in this patient has an enlarged prostate gland. ORIF right hip hardware. Partially healed right femoral neck fracture. RADIATION DOSE DELIVERED: 316.47mGy.cm Total DLP DATA REPOSITORY: All CT scans at this facility are submitted to the National Radiology Data Registry (NRDR) Dose Index Registry (DIR) with the [employer] (ACR). RADIATION OPTIMIZATION: All CT scans at this facility use at least one of these dose optimization techniques: automated exposure control; mA and/or kV adjustment per patient size (includes targeted exams where dose is matched to clinical indication); or iterative reconstruction.
[2024-11-18 22:00] LABS: Abs Immature Grans 0.04 10^3/uL (0.0-0.06); HCT 42.8 % (40.0-50.0); HGB 15.0 g/dL (13.5-17.5); Immature Grans % 0.5 %; MCH 31.8 pg (27.0-33.0); MCHC 35.0 % (32.0-36.0); MCV 91 fL (80-95); MPV 9.3 fL (8.0-11.0); Platelet Count 147 10^3/uL (130-400); RBC 4.72 10^6/uL (4.36-5.78); RDW 12.8 % (11.8-14.1); RDW-SD 42.5 fL; WBC 8.00 10^3/uL (4.4-10.8)
[2024-11-18 22:15] LABS: ALT 11 U/L (16-63); AST 16 U/L (15-37); Albumin 3.6 g/dL (3.4-5.0); Alkaline Phosphatase 113 U/L (46-116); Anion Gap 12.6 mmol/L (3-11); BUN 7 mg/dL (7-18); Bilirubin, Total 0.7 mg/dL (0.2-1.0); CO2 25.4 mmol/L (21.0-32.0); Calcium 8.9 mg/dL (8.5-10.1); Chloride 97 mmol/L (98-107); Estimated GFR 92.45 (mL/min/1.73m2); Glucose 81 mg/dL (74-106); Potassium 3.1 mmol/L (3.5-5.1); Sodium 135 mmol/L (136-145); Total Protein 7.4 g/dL (6.4-8.2)
[2024-11-18] MEDS: Omnipaque 350 MG/ML 100 ML BTL IJ (22:39)
[2024-11-18] MEDS: Normal Saline Flush 10 ML SYR IVP (22:40)
[2024-11-18] MEDS: Normal Saline - Diluent 50 ML VIAL IJ (22:40)
[2024-11-18] MEDS: Potassium Chloride 20 MEQ TABCR 40 MEQ PO (23:34)
[2024-11-18 23:44] VITALS: PULSE 133; RESP 18
--- NOTE | 2024-11-18 23:44 | W.ED.GENAD ---
Discharge Plan Disposition Patient Disposition: Home Condition: Stable Discharge Details Clinical Impression: Hypokalemia, Acute hip pain, Alcohol abuse Primary Care Provider: Sherri Guzman V ED Provider: Marie Mtz Home Meds and New Rx's Prescriptions: New potassium chloride [Klor-Con M20] 20 mEq tablet,ER particles/crystals 40 meq PO DAILY Qty: 6 0RF Continued gabapentin 300 mg capsule 300 mg PO TID Patient Comments: 08/23/23 renal dosing per [facility] d/c RH, 06/07/24 300mg TID qty 270 per [facility] thiamine HCl (vitamin B1) 100 mg tablet 100 mg PO DAILY Patient Comments: 08/23/23 per [facility] d/c summary RH tamsulosin 0.4 mg capsule 0.4 mg PO DAILY ferrous gluconate 324 mg (37.5 mg iron) tablet 324 mg PO Q48H Patient Comments: Prescribed once daily Per [facility] metoprolol succinate 25 mg tablet extended release 24 hr 50 mg PO DAILY magnesium oxide 400 mg magnesium tablet 400 mg PO BID Patient Comments: Per [facility] cyclobenzaprine 10 mg Tablet 10 mg PO TID PRN PRN Patient Comments: Per [facility] citalopram 20 mg Tablet 20 mg PO QAM pantoprazole 40 mg Tablet,Delayed Release (Dr/Ec) 40 mg PO DAILY Patient Comments: Per [facility] 05/18/24 qty 90 topiramate 50 mg Tablet 150 mg PO DAILY Patient Comments: Per [facility] atorvastatin [Lipitor] 80 mg tablet 80 mg PO QPM digoxin [Digitek] 125 mcg (0.125 mg) tablet 125 mcg PO DAILY albuterol sulfate 90 mcg/actuation HFA aerosol inhaler 2 inh inhalation Q4H PRN PRN lidocaine 5 % adhesive patch,medicated See Rx Instructions .ROUTE .COMPLEX Patient Comments: Was taking at [facility] in June, no current Rx Rx Instructions: leave on most painful area for up to 12 hrs multivitamin Tablet 1 tab PO DAILY melatonin 3 mg tablet 6 mg PO HS PRN PRN nicotine 14 mg/24 hr patch 24 hour 1 patch transdermal DAILY celecoxib [Celebrex] 100 mg Capsule 200 mg PO BID Qty: 30 0RF Rx Instructions: Re-evaluate need as per PCP for refill hydromorphone 2 mg Tablet 2 mg PO Q6H PRNQty: 20 0RF Rx Instructions: Refill as per outpatient provider- The patient was on chronic Rx for hydrocodone-APAP 10/325 mg (#112 tabs for 28 days supply) that was switched to hydromorphone at [facility] Banophen Anti-Itch 2-0.1 % Cream 1 applic topical BID PRN PRNQty: 28 0RF enoxaparin 30 mg/0.3 mL Syringe 30 mg subcut Q12H Qty: 8.1 0RF Rx Instructions: Until Jul 16 2024 then stop and take Eliquis 5 mg oral BID starting on Jul 17 2024 AM acetaminophen 500 mg Tablet 1,000 mg PO Q6H PRN hydrocodone-acetaminophen 10-325 mg tablet 1 tab PO Q6H PRN (Reason: pain) Patient Comments: Per [facility] mupirocin [Centany] 2 % ointment 1 applic topical TID Qty: 15 0RF Eliquis 5 mg Tablet 5 mg PO BID Qty: 60 0RF potassium chloride [Klor-Con M20] 20 mEq tablet,ER particles/crystals 20 meq PO DAILY Qty: 30 0RF Discharge Instructions Additional Instructions: You may take Tylenol as needed for pain, please try to cut down on drinking by 1 drink a day Use a cane with ambulation to assist Take the potassium supplement as prescribed Return with new or worsening complaints Referrals: Sherri Guzman MD [Primary Care Provider, Medicine] Discharge Data Discharge Date/Time-TO BE ENTERED AT DEPARTURE: 11/19/24 07:47 HPI General Date/Time Provider Initiated Documentation: 11/18/24 21:10. HPI Narrative: This 69-year-old male with history of PEs, on Eliquis alcohol use CHF pneumonia, hyperlipidemia atrial fibrillation on digoxin presents with fall this morning while getting out of bed. He states that he slipped and fell backward into his bed. He states he had a couple of cocktails this evening but is still in pain which is why he presents. He denies any headache and is predominantly complaining of pain to his right hip. He denies any abdominal pain or chest pain. He denies any loss of consciousness. Denies any additional illicit substance use. Was noted to. Related Data Home Medications ?Medication ?Instructions ?Recorded ?Confirmed citalopram 20 mg tablet 20 mg PO QAM 11/23/21 09/10/24 cyclobenzaprine 10 mg tablet 10 mg PO TID PRN PRN 11/23/21 09/10/24 pantoprazole 40 mg tablet,delayed 40 mg PO DAILY 11/23/21 09/10/24 release topiramate 50 mg tablet 150 mg PO DAILY 11/23/21 09/10/24 gabapentin 300 mg capsule 300 mg PO TID 08/23/23 09/10/24 tamsulosin 0.4 mg capsule 0.4 mg PO DAILY 08/23/23 09/10/24 thiamine HCl (vitamin B1) 100 mg 100 mg PO DAILY 08/23/23 09/10/24 tablet ferrous gluconate 324 mg (37.5 mg 324 mg PO Q48H 11/21/23 09/10/24 iron) tablet magnesium oxide 400 mg PO BID 11/21/23 09/10/24 metoprolol succinate 25 mg 50 mg PO DAILY 11/21/23 09/10/24 tablet,extended release 24 hr albuterol sulfate 90 mcg/actuation 2 inh inhalation Q4H PRN PRN 06/26/24 09/10/24 aerosol inhaler atorvastatin 80 mg tablet (Lipitor) 80 mg PO QPM 06/26/24 09/10/24 digoxin 125 mcg (0.125 mg) tablet 125 mcg PO DAILY 06/26/24 09/10/24 (Digitek) lidocaine 5 % topical patch See Rx Instructions topical 06/26/24 09/10/24 .COMPLEX melatonin 3 mg tablet 6 mg PO HS PRN PRN 06/26/24 09/10/24 multivitamin 1 tab PO DAILY 06/26/24 09/10/24 nicotine 14 mg/24 hr daily 1 patch transdermal DAILY 06/26/24 09/10/24 transdermal patch celecoxib 100 mg capsule (Celebrex) 200 mg (2 x 100 mg) PO BID #30 caps 07/03/24 09/10/24 diphenhydramine-zinc acetate 2 1 applic topical BID PRN PRN #28 07/03/24 09/10/24 %-0.1 % topical cream (Banophen grams Anti-Itch) enoxaparin 30 mg/0.3 mL 30 mg (0.3 mL) subcut Q12H #8.1 mL 07/03/24 09/10/24 subcutaneous syringe hydromorphone 2 mg tablet 2 mg PO Q6H PRN #20 tabs 07/03/24 09/10/24 acetaminophen 500 mg tablet 1,000 mg PO Q6H PRN 08/23/24 09/10/24 hydrocodone 10 mg-acetaminophen 1 tab PO Q6H PRN pain 08/23/24 09/10/24 325 mg tablet mupirocin 2 % topical ointment 1 applic topical TID #15 grams 08/23/24 09/10/24 ([facility]) apixaban 5 mg tablet (Eliquis) 5 mg PO BID #60 tabs 09/17/24 potassium chloride 20 mEq 20 meq PO DAILY #30 tabs 09/17/24 tablet,extended release(part/cryst) (Klor-Con M) potassium chloride 20 mEq 40 meq (2 x 20 mEq) PO DAILY #6 11/18/24 tablet,extended tabs release(part/cryst) (Klor-Con M) Previous Rx's ?Medication ?Instructions ?Recorded celecoxib 100 mg capsule (Celebrex) 200 mg (2 x 100 mg) PO BID #30 caps 07/03/24 diphenhydramine-zinc acetate 2 1 applic topical BID PRN PRN #28 07/03/24 %-0.1 % topical cream (Banophen grams Anti-Itch) enoxaparin 30 mg/0.3 mL 30 mg (0.3 mL) subcut Q12H #8.1 mL 07/03/24 subcutaneous syringe hydromorphone 2 mg tablet 2 mg PO Q6H PRN #20 tabs 07/03/24 mupirocin 2 % topical ointment 1 applic topical TID #15 grams 08/23/24 ([facility]) apixaban 5 mg tablet (Eliquis) 5 mg PO BID #60 tabs 09/17/24 potassium chloride 20 mEq 20 meq PO DAILY #30 tabs 09/17/24 tablet,extended release(part/cryst) (Klor-Con M) potassium chloride 20 mEq 40 meq (2 x 20 mEq) PO DAILY #6 11/18/24 tablet,extended tabs release(part/cryst) (Klor-Con M) Allergies Allergy/AdvReac Type Severity Reaction Status Date / Time amlodipine Allergy Unknown Other (See Verified 08/23/24 09:30 Comment) trazodone Allergy Unknown Other (See Verified 08/23/24 09:30 Comment) budesonide (From Pulmicort) Allergy Other (See Verified 08/23/24 09:30 Comment) benazepril AdvReac Intermediate Swelling/Ed Verified 08/23/24 09:30 nica diazepam AdvReac Intermediate Agitation Verified 08/23/24 09:30 clonidine AdvReac Mild Dry mouth Verified 08/23/24 09:30 lisinopril AdvReac Mild Cough Verified 08/23/24 09:30 losartan AdvReac Mild Cough Verified 08/23/24 09:30 tramadol AdvReac Nauseous Verified 08/23/24 09:30 General Stated Complaint: Fall/Non TraumaCriteria DAYSI: 4 Exam Narrative Exam Narrative: Patient is alert and oriented, and he is in no acute distress he is answering questions appropriately has no visible sign of trauma his pupils are equal round reactive to light and accommodation his respiratory status is stable and his lungs are clear his cardiac rate rhythm is regular no abdominal tenderness no flank tenderness, GCS 15, unsteady gait 2+ edema to bilateral ankles tenderness to right femur and right hip stable pelvis Course Vital Signs Vital signs: Vital Signs Temperature 36.7 C 11/18/24 20:14 Pulse 92 H 11/18/24 20:14 Respiratory Rate 20 11/18/24 20:14 Blood Pressure 130/92 H 11/18/24 20:14 Pulse Oximetry 93 11/18/24 20:14 Temperature 36.7 C 11/18/24 20:14 Pulse 92 H 11/18/24 20:14 Respiratory Rate 20 11/18/24 20:14 Respiratory Effort Normal, Non-Labored 11/18/24 21:48 Respiratory Pattern Normal 11/18/24 21:48 Blood Pressure 130/92 H 11/18/24 20:14 Blood Pressure Position Sitting 11/18/24 20:14 Pulse Oximetry 93 11/18/24 20:14 Oxygen Delivery Method Room Air 11/18/24 21:48 Oxygen Flow Rate 0 11/18/24 21:48 Lab/Test Results Lab/Test Results: Laboratory Tests Range/Units 11/18/24 21:50 WBC (4.4-10.8) 10^3/uL 8.00 RBC (4.36-5.78) 10^6/uL 4.72 Hgb (13.5-17.5) g/dL 15.0 Hct (40.0-50.0) % 42.8 MCV (80-95) fL 91 MCH (27.0-33.0) pg 31.8 MCHC (32.0-36.0) % 35.0 RDW (11.8-14.1) % 12.8 Plt Count (130-400) 10^3/uL 147 MPV (8.0-11.0) fL 9.3 Immature Gran % % 0.5 Neutrophils % % 67.6 Lymphocytes % % 21.8 Monocytes % % 7.8 Eosinophils % % 1.8 Basophils % % 0.5 Nucleated RBC % (0.0-0.3) % 0.0 Absolute Neutrophils (1.2-6.7) 10^3/uL 5.42 Absolute Lymphocytes (1.2-3.4) 10^3/uL 1.74 Absolute Monocytes (0.1-0.8) 10^3/uL 0.62 Absolute Eosinophils (0.0-0.7) 10^3/uL 0.14 Absolute Basophils (0.0-0.2) 10^3/uL 0.04 Sodium (136-145) mmol/L 135 L Potassium (3.5-5.1) mmol/L 3.1 L Chloride (98-107) mmol/L 97 L Carbon Dioxide (21.0-32.0) mmol/L 25.4 Anion Gap (3-11) mmol/L 12.6 H BUN (7-18) mg/dL 7 Creatinine (0.70-1.30) mg/dL 0.9 Est GFR (CKD-EPI 2020) (mL/min/1.73m2) 92.45 Glucose (74-106) mg/dL 81 Calcium (8.5-10.1) mg/dL 8.9 Total Bilirubin (0.2-1.0) mg/dL 0.7 AST (15-37) U/L 16 ALT (16-63) U/L 11 L Alkaline Phosphatase (46-116) U/L 113 Total Protein (6.4-8.2) g/dL 7.4 Albumin (3.4-5.0) g/dL 3.6 Ethyl Alcohol (<10) mg/dL 87.2 H ABO/Rh A Positive Antibody Screen NEGATIVE Medical Decision Making Results: Patient pending CT chest abdomen and pelvis, and x-ray right hip and femur, CBC and CMP without significant acute abnormality hypokalemia at 3.1, given potassium will otherwise remain n.p.o. Assessment and plan: Alert and oriented 69-year-old male who appears to be under the influence of alcohol but is able to answer questions appropriately alcohol of 87, CIWA will be ordered as patient will be here for next any period of time pending CTs and observation and ambulatory trial. Provided CTs and x-rays are within normal limits and patient is able to ambulate successfully I think he is stable for discharge home,once ambulatory in care of family/friend. Quality:SDOH Health Related Social Needs: Health related social needs food insecurity transpo insecurity house/econ circumstance daily activities lonely/isolated Health related social needs details 19 Stairs to get into house at home. lives alone in apartment, on Social security, friends have meals a couple times a week, uses [employer] for transportation, Would benefit from meals on wheels, pt would prefer not to have to move due to stairs and cost of apartment PFSH All Active Problems (Updated 11/19/24 @ 00:24 by EDMAR Eckert) Alcohol abuse (Chronic) Acute hip pain (Acute) Hypokalemia (Acute) Contusion of hip, right (Acute) Fall (Acute) Urinary tract infection (Acute) Cellulitis of right lower leg (Acute) Stage II pressure ulcer of sacral region (Acute) Essential hypertension (Acute) Acute pulmonary embolus (Acute) Hematoma of right thigh (Acute) Fracture, intertrochanteric, right femur (Acute) Acute urinary retention (Acute) Cerebral cortical contusion-no coma (Acute) Fall (Acute) Closed fracture of right hip (Acute) Recurrent epistaxis (Acute) Heart failure with reduced ejection fraction (Acute) Hepatitis C (Chronic) Per H&P: s/p tx. . He had an abc CT earlier this year which showed a normal liver. Normal anion gap metabolic acidosis (Acute) High anion gap metabolic acidosis (Acute) Lactic acidosis (Acute) Coagulopathy (Acute) Leukocytosis (Acute) Hyperphosphatemia (Acute) Hypocalcemia (Acute) Encephalopathy (Acute) Shock circulatory (Acute) Hyperkalemia (Acute) Acute renal failure (Acute) Acute liver failure (Acute) HFrEF (heart failure with reduced ejection fraction) (Acute) Anemia due to blood loss (Acute) Elevated liver enzymes (Acute) Acute posterior epistaxis (Acute) Acute anterior epistaxis (Acute) COPD (chronic obstructive pulmonary disease) (Chronic) Closed right clavicular fracture (Acute ~11/2021) Right shoulder pain (Acute) CHF (congestive heart failure) (Chronic) No-show for appointment (Acute) Left leg weakness (Acute) MCL sprain of right knee (Acute) Alcohol abuse (Chronic) Chest discomfort (Chronic) Acute on chronic diastolic heart failure (Acute) Bilateral pleural effusion (Acute) Falls (Acute) Pulmonary nodule (Acute) Acute respiratory failure with hypoxia (Acute) Pneumonia (Acute) Acute respiratory distress (Acute) Femur fracture, right (Acute) Fracture, rib (Acute) A-fib (Chronic) Laceration of digital nerve of left thumb (Acute) Gastritis and duodenitis (Acute) Medical History JOS (acute kidney injury) Leg edema Cardiogenic shock Tobacco use Back pain Obesity Chronic pain Asthma Adjustment disorder Pain in left wrist Right hip pain Insomnia Medication monitoring encounter History of depression Opioid withdrawal Cataract Blurred vision Patella-femoral syndrome Trochanteric bursitis Knee pain, right Rib pain Hx of viral pneumonia Lumbar radiculopathy Cocaine abuse Lightheadedness Abdominal pain in male Positive urine drug screen Dyspnea on exertion Voiding dysfunction Clavicle pain Arthritis Neck fracture Per pt. states he broke his nevk 5-6 years ago. 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) As treatment for proximal humerus fx (DOI: 11/11/2021) History of surgery on wrist History of cataract surgery History of cataract surgery History of hand surgery Social History Smoking/Tobacco Use Status: Current every day Tobacco Type: cigarettes Smoking risk assessment performed?: Yes Alcohol Intake: current Alcohol Intake frequency: 3 or more drinks per day Alcohol type: beer Drug use: Current Sobriety Substance use type: does not use and unknown Housing: apartment Current gender identity: male Do you feel safe at home: Yes Do you feel safe in your relationship?: Yes Additional Social history: lives alone PAWSS Have you Been Recently Intoxicated or Drunk Within the Last 30 days?: No Have you Ever Experienced Previous Episodes of Alcohol Withdrawal?: No Have you ever Experienced Withdrawal Seizures?: No Have you ever Experienced Delirium Tremens(DT)s?: No Have you ever undergone Alcohol Rehabilitation Treatment (i.e, inpt ot outpatient treatment programs)?: No Have you ever Experienced Blackouts?: No Have you ever Combined Alcohol with other Downers within the last 90 days?: No Have you ever Combined Alcohol with any other Substance of Abuse during the last 90 days?: No Positive Blood Alcohol level on Presentation? [PCS.BAL]: No Evidence of Increased Autonomic Activity (i.e. HR>120, tremor, sweating, agitation, nausea)?: No Result: 0
[2024-11-19] VITALS (42 sets, daily range): PULSE 60–155; RESP 12–25; O2SAT 93–98
--- NOTE | 2024-11-19 00:07 | DI.VRAD_ITS ---
PROCEDURE INFORMATION: Exam: CT Chest With Contrast; Diagnostic Exam date and time: 11/18/2024 10:34 PM Age: 69 years old Clinical indication: Injury or trauma; Generalized; Blunt trauma (contusions or hematomas); Injury details: Fall on eliquis TECHNIQUE: Imaging protocol: Diagnostic computed tomography of the chest with contrast. Contrast material: OMNI 350; Contrast volume: 75 ml; Contrast route: INTRAVENOUS (IV); COMPARISON: CT CHEST PE CTA 02/10/2021 10:38 AM FINDINGS: Lungs: The lungs are clear. There is a 4 mm left lower lobe pulmonary nodule which is unchanged from the 2020 CT of the chest. No pulmonary laceration or contusion. Pleural spaces: Unremarkable. No pneumothorax. No pleural effusion. Heart: Heart is normal size. No pericardial effusion. No pericardial effusion. Coronary arteries: There are moderate atheromatous coronary artery calcifications. Lymph nodes: Unremarkable. No enlarged lymph nodes. Vasculature: Atheromatous calcifications are present within the visualized thoracic aorta. Bones/joints: Bones have a normal appearance. No acute fracture or suspicious bone lesion. Severe degenerative changes are present throughout the thoracic spine. Soft tissues: Unremarkable. IMPRESSION: No acute pulmonary findings. No acute thoracic trauma. PROCEDURE INFORMATION: Exam: CT Abdomen And Pelvis With Contrast Exam date and time: 11/18/2024 10:34 PM Age: 69 years old Clinical indication: Injury or trauma; Generalized; Blunt trauma (contusions or hematomas); Injury details: Fall on eliis TECHNIQUE: Imaging protocol: Computed tomography of the abdomen and pelvis with contrast. Contrast material: OMNI 350; Contrast volume: 75 ml; Contrast route: INTRAVENOUS (IV); COMPARISON: CT ABDOMEN PELVIS W 07/04/2019 3:39 PM FINDINGS: Liver: The liver has a normal appearance. Gallbladder and biliary ducts: Multiple calcified stones are present in the gallbladder fundus. No gallbladder wall thickening or pericholecystic fluid. Pancreas: The pancreas is atrophic. Spleen: The spleen is diminutive and has a lobulated appearance suggesting splenosis. Adrenal glands: The adrenal glands have a normal appearance. Kidneys and ureters: The kidneys are atrophic. No hydronephrosis or nephrolithiasis. Stomach and bowel: The bowel demonstrates overall normal caliber and wall thickness. Appendix: The appendix is not visualized; however there are no ancillary findings to suggest acute appendicitis such as free right lower quadrant fluid or perienteric fat stranding. Intraperitoneal space: Unremarkable. No free air. No significant fluid collection. Vasculature: Dense atheromatous calcifications are present throughout the abdominal aorta. The abdominal aorta measures up to 3.2 cm in diameter. Lymph nodes: Unremarkable. No enlarged lymph nodes. Urinary bladder: The bladder is fluid filled. There is mild bladder wall thickening and trace perivesicular fat stranding. Reproductive: Unremarkable as visualized. Bones/joints: Bones have a normal appearance. No acute fracture or suspicious bone lesion. A comminuted, partially healed right femoral neck fracture is noted. Dynamic hip screw is present. Soft tissues: Unremarkable. IMPRESSION: 1. No acute intra-abdominal trauma. 2. Mild bladder wall thickening and trace perivesicular fat stranding which may be associated with acute cystitis. 3. Abdominal aortic aneurysm. 4. Cholelithiasis. No findings to suggest choledocholithiasis or acute cholecystitis. Dictated and Authenticated by: Nadiya Mariee MD. Orderin Bibi Salazar MD
--- NOTE | 2024-11-19 00:08 | DI.VRAD_ITS ---
PROCEDURE INFORMATION: Exam: CT Head Without Contrast Exam date and time: 11/18/2024 10:32 PM Age: 69 years old Clinical indication: Injury or trauma; Blunt trauma (contusions or hematomas); Consciousness not specified; Injury details: Fall on eliquis TECHNIQUE: Imaging protocol: Computed tomography of the head without contrast. COMPARISON: CT HEAD CERV SPINE FACIAL WO 09/10/2024 3:23 PM FINDINGS: Brain: No acute intracranial hemorrhage or mass lesions. No midline shift. Normal larkin-white differentiation. There moderate are scattered deep and periventricular white matter changes likely associated with chronic microvascular ischemia. Punctate calcifications are present in the bilateral basal ganglia. Cerebral ventricles: No ventriculomegaly. Paranasal sinuses: Visualized sinuses are unremarkable. No fluid levels. Mastoid air cells: Visualized mastoid air cells are well aerated. Bones: Unremarkable. No acute fracture. Soft tissues: Unremarkable. Vasculature: Atheromatous calcifications are present bilaterally within the cavernous portions of the internal carotid arteries. IMPRESSION: 1. No acute intracranial findings. 2. Findings likely associated with chronic microvascular ischemia. PROCEDURE INFORMATION: Exam: CT Cervical Spine Without Contrast Exam date and time: 11/18/2024 10:32 PM Age: 69 years old Clinical indication: Injury or trauma; Blunt trauma (contusions or hematomas); Consciousness not specified; Injury details: Fall on eliquis TECHNIQUE: Imaging protocol: Computed tomography of the cervical spine without contrast. COMPARISON: CT HEAD CERV SPINE FACIAL WO 09/10/2024 3:23 PM FINDINGS: Bones: Severe degenerative changes are present throughout the cervical spine including intervertebral disc space narrowing, endplate sclerosis and osteophytosis. No acute fracture or dislocation. No compression deformities. Lungs: Lung apices are normal. Soft tissues: Unremarkable. IMPRESSION: No acute cervical spine injury. Dictated and Authenticated by: Nadiya Mariee MD. Orderin Bibi Salazar MD
--- NOTE | 2024-11-19 00:26 | DI.VRAD_ITS ---
PROCEDURE INFORMATION: Exam: XR Right Femur Exam date and time: 11/19/2024 12:04 AM Age: 69 years old Clinical indication: Thigh; Right; Prior surgery; Surgery date: 1-6 months; Surgery type: Femur 06/16/24; Fall, pain TECHNIQUE: Imaging protocol: Radiologic exam of the right femur. Views: 2 views. COMPARISON: CR XR FEMUR RT 09/10/2024 3:36 PM FINDINGS: Tubes, catheters and devices: Intramedullary nail is present and appears intact. Bones/joints: A healing fracture deformity is present at the proximal right femur. No new acute fracture or dislocation. Soft tissues: Unremarkable. IMPRESSION: No acute radiographic findings. Healing prior ORIF and femoral fracture. Dictated and Authenticated by: Nadiya Mariee MD. Orderin Bibi Salazar MD
[2024-11-19] MEDS: ACETAMINOPHEN 500 MG/50 ML BAG 200 MG IVPB (00:46)
[2024-11-19 01:00] LABS: Glucose Negative (Negative)
[2024-11-19 01:12] LABS: C & S Indicated? No; RBC Negative HPF (0-2)
--- NOTE | 2024-11-19 02:21 | NUR.NOTE ---
Nursing Note: pt ambulated with walker about 10 ft unassisted. contact guard with pt at the time.
== END 2024-11-19 07:47 | disposition home or self-care (01) ==
PROVIDERS: Emergency Provider Physician Assistant; PCP Family Medicine
DX: M25.551 Pain in right hip (principal); E87.6 Hypokalemia; F10.10 Alcohol abuse, uncomplicated; Z79.01 Long term (current) use of anticoagulants; W19.XXXA Unspecified fall, initial encounter; Z59.41 Food insecurity; Z59.82 Transportation insecurity; Z59.89 Other problems related to housing and economic circumstances; Z60.8 Other problems related to social environment
CPT/HCPCS: 36415; 73552; 74177; 80053; 86850; 86900; 86901; 96365; 99285; 70450; 71260; 72125; 80320; 81003; 81015; 85025; 99284; J0131; J3490